=== PATIENT | male | born 1945 | race Caucasian/White ===

== ENCOUNTER 2017-07-29 14:16 | Emergency (ER) | payer OTHER ==
--- OUTSIDE RECORDS SUMMARY | 2017-07-29 14:19 | XMS REPORT ---
:1945 Author Organization [facility] Address [address] [place] [address] [address] [place] [address] Care Team Providers Name Role Phone ABIEL DELGADO Unavailable Unavailable Problems This patient has no known problems. Allergies, Adverse Reactions, Alerts This patient has no known allergies or adverse reactions. Medications This patient has no known medications. Results Test Description Test Time Test Comments Text Results Atomic Results Result Comments POCT-GLUCOSE METER 2017-02-08 13:28:00 Test Item Value Reference Range Comments POC-GLUCOSE METER (BEAKER) (test 270 mg/dL 70-110 TESTED AT [address] vlis=3368) [facility] [address] POCT-GLUCOSE [id number] 08:58:00 Test Item Value Reference Range Comments POC-GLUCOSE METER (BEAKER) 147 mg/dL 70-110 TESTED AT [address] (test fgqk=5353) [facility] [address] CBC W/PLT COUNT & AUTO [id number] 08:53:00 Test Item Value Reference Range Comments WHITE BLOOD CELL COUNT (BEAKER) (test tbsf=097) 5.6 K/ L 3.5-10.5 RED BLOOD CELL COUNT (BEAKER) (test pdhc=430) 4.28 M/ L 4.63-6.08 HEMOGLOBIN (BEAKER) (test pewi=969) 11.7 GM/DL 13.7-17.5 HEMATOCRIT (BEAKER) (test jxwm=270) 37.4 % 40.1-51.0 MEAN CORPUSCULAR VOLUME (BEAKER) (test grma=393) 87.4 fL 79.0-92.2 MEAN CORPUSCULAR HEMOGLOBIN (BEAKER) (test 27.3 pg 25.7-32.2 yzzj=677) MEAN CORPUSCULAR HEMOGLOBIN CONC (BEAKER) (test 31.3 GM/DL 32.3-36.5 iubb=633) RED CELL DISTRIBUTION WIDTH (BEAKER) (test 16.2 % 11.6-14.4 iayn=097) PLATELET COUNT (BEAKER) (test mmjp=768) 100 K/CU MM 150-450 MEAN PLATELET VOLUME (BEAKER) (test ctac=668) 10.7 fL 9.4-12.4 NUCLEATED RED BLOOD CELLS (BEAKER) (test 0 /100 WBC 0-0 bjdx=194) NEUTROPHILS RELATIVE PERCENT (BEAKER) (test 50 % wuda=142) LYMPHOCYTES RELATIVE PERCENT (BEAKER) (test 30 % etal=149) MONOCYTES RELATIVE PERCENT (BEAKER) (test 18 % hibf=244) EOSINOPHILS RELATIVE PERCENT (BEAKER) (test 2 % nsje=736) BASOPHILS RELATIVE PERCENT (BEAKER) (test 1 % seoz=771) NEUTROPHILS ABSOLUTE COUNT (BEAKER) (test 2.77 K/ L 1.78-5.38 ofcy=284) LYMPHOCYTES ABSOLUTE COUNT (BEAKER) (test 1.66 K/ L 1.32-3.57 qbvn=680) MONOCYTES ABSOLUTE COUNT (BEAKER) (test 1.02 K/ L 0.30-0.82 yxce=023) EOSINOPHILS ABSOLUTE COUNT (BEAKER) (test 0.09 K/ L 0.04-0.54 qnzu=076) BASOPHILS ABSOLUTE COUNT (BEAKER) (test 0.03 K/ L 0.01-0.08 budd=597) IMMATURE GRANULOCYTES-RELATIVE PERCENT (BEAKER) 0 % 0-1 (test yatd=6503) [id number] 08:05:00 Test Item Value Reference Range Comments MAGNESIUM (BEAKER) (test pbor=951) 1.5 mg/dL 1.6-2.6 BASIC METABOLIC [id number] 08:05:00 Test Item Value Reference Range Comments SODIUM (BEAKER) (test 137 meq/L 136-145 hxor=416) POTASSIUM (BEAKER) (test 3.3 meq/L 3.5-5.1 ixrt=826) CHLORIDE (BEAKER) (test 98 meq/L 98-107 fvme=258) CO2 (BEAKER) (test 27 meq/L 22-29 csci=661) BLOOD UREA NITROGEN 30 mg/dL 7-21 (BEAKER) (test nkuw=036) CREATININE (BEAKER) (test 1.59 mg/dL 0.57-1.25 bdtn=479) GLUCOSE RANDOM (BEAKER) 116 mg/dL 70-105 (test tjgp=853) CALCIUM (BEAKER) (test 9.0 mg/dL 8.4-10.2 nqqf=247) EGFR (BEAKER) (test 43 mL/min/1.73 sq m ESTIMATED GFR IS NOT oxzt=9810) ACCURATE CREATININE CLEARANCE IN PREDICTING GLOMERULAR FILTRATION RATE. ESTIMATED GFR IS NOT APPLICABLE FOR DIALYSIS PATIENTS. POCT-GLUCOSE [id number] 21:57:00 Test Item Value Reference Range Comments POC-GLUCOSE METER (BEAKER) 219 mg/dL 70-110 TESTED AT [address] (test kdcg=0495) [facility] [address] POCT-GLUCOSE [id number] 17:24:00 Test Item Value Reference Range Comments POC-GLUCOSE METER (BEAKER) 247 mg/dL 70-110 TESTED AT [address] (test tnac=4794) [facility] [address] CBC W/PLT COUNT & AUTO [id number] 13:56:00 Test Item Value Reference Range Comments WHITE BLOOD CELL COUNT (BEAKER) (test jwjb=173) 6.4 K/ L 3.5-10.5 RED BLOOD CELL COUNT (BEAKER) (test kpfz=363) 4.04 M/ L 4.63-6.08 HEMOGLOBIN (BEAKER) (test qbxg=705) 10.9 GM/DL 13.7-17.5 HEMATOCRIT (BEAKER) (test ucbm=899) 35.4 % 40.1-51.0 MEAN CORPUSCULAR VOLUME (BEAKER) (test rlag=841) 87.6 fL 79.0-92.2 MEAN CORPUSCULAR HEMOGLOBIN (BEAKER) (test 27.0 pg 25.7-32.2 bnlx=772) MEAN CORPUSCULAR HEMOGLOBIN CONC (BEAKER) (test 30.8 GM/DL 32.3-36.5 gzzu=433) RED CELL DISTRIBUTION WIDTH (BEAKER) (test 16.1 % 11.6-14.4 mugp=846) PLATELET COUNT (BEAKER) (test ofyz=993) 98 K/CU MM 150-450 MEAN PLATELET VOLUME (BEAKER) (test cldi=306) 10.5 fL 9.4-12.4 NUCLEATED RED BLOOD CELLS (BEAKER) (test 0 /100 WBC 0-0 uhjj=022) IMMATURE GRANULOCYTES-RELATIVE PERCENT (BEAKER) 0 % 0-1 (test mxrc=8603) (MANUAL DIFFERENTIAL)2017-02-07 13:56:00 Test Item Value Reference Range Comments NEUTROPHILS - REL (DIFF) (BEAKER) (test blfh=3422) 52 % LYMPHOCYTES - REL (DIFF) (BEAKER) (test tpgl=7012) 26 % MONOCYTES - REL (DIFF) (BEAKER) (test iolk=8523) 14 % EOSINOPHILS - REL (DIFF) (BEAKER) (test lzie=6961) 6 % BASOPHILS - REL (DIFF) (BEAKER) (test befb=9882) 0 % BANDS - REL (DIFF) (BEAKER) (test dzrk=6947) 1 % 0-10 ATYPICAL LYMPHOCYTE - REL (DIFF) (BEAKER) (test 1 % 0-0 pqvw=733) NEUTROPHILS - ABS (DIFF) (BEAKER) (test echq=1852) 3.33 K/ L 1.80-8.00 LYMPHOCYTES - ABS (DIFF) (BEAKER) (test rmpi=9464) 1.66 K/ L 1.48-4.50 MONOCYTES - ABS (DIFF) (BEAKER) (test oxmq=1645) 0.90 K/ L 0.00-1.30 EOSINOPHILS - ABS (DIFF) (BEAKER) (test jstj=1951) 0.38 K/ L 0.00-0.50 BASOPHILS - ABS (DIFF) (BEAKER) (test ybjx=5642) 0.00 K/ L 0.00-0.20 BANDS-ABS (DIFF) (BEAKER) (test tkrr=4035) 0.1 K/ L 0.0-0.8 ATYPICAL LYMPHOCYTES - ABS (DIFF) (BEAKER) (test 0.06 K/ L 0.00-0.00 uplm=457) TOTAL COUNTED (BEAKER) (test whub=7341) 100 BANDS + SEGMENTED NEUTROPHILS (BEAKER) (test 3.39 uefa=1322) WBC MORPHOLOGY (BEAKER) (test eleq=419) Normal PLT MORPHOLOGY (BEAKER) (test qrqx=139) Normal RBC MORPHOLOGY (BEAKER) (test sszg=462) Normal POCT-GLUCOSE [id number] 13:22:00 Test Item Value Reference Range Comments POC-GLUCOSE METER (BEAKER) 226 mg/dL 70-110 TESTED AT [address] (test poqe=0800) [place] [id number] POCT-GLUCOSE [id number] 07:59:00 Test Item Value Reference Range Comments POC-GLUCOSE METER (BEAKER) 216 mg/dL 70-110 TESTED AT [address] (test fwmo=8264) [place] [address] [id number] 05:18:00 Test Item Value Reference Range Comments MAGNESIUM (BEAKER) (test gfra=783) 1.7 mg/dL 1.6-2.6 BASIC METABOLIC [id number] 05:18:00 Test Item Value Reference Range Comments SODIUM (BEAKER) (test 136 meq/L 136-145 fecy=120) POTASSIUM (BEAKER) (test 3.4 meq/L 3.5-5.1 vrqe=856) CHLORIDE (BEAKER) (test 101 meq/L 98-107 oxfu=820) CO2 (BEAKER) (test 26 meq/L 22-29 kzkr=937) BLOOD UREA NITROGEN 25 mg/dL 7-21 (BEAKER) (test bfiq=954) CREATININE (BEAKER) (test 1.50 mg/dL 0.57-1.25 fwqb=042) GLUCOSE RANDOM (BEAKER) 216 mg/dL 70-105 (test pwxt=782) CALCIUM (BEAKER) (test 8.5 mg/dL 8.4-10.2 qoex=687) EGFR (BEAKER) (test 46 mL/min/1.73 sq m ESTIMATED GFR IS NOT qtwg=6293) ACCURATE CREATININE CLEARANCE IN PREDICTING GLOMERULAR FILTRATION RATE. ESTIMATED GFR IS NOT APPLICABLE FOR DIALYSIS PATIENTS. POCT-GLUCOSE [id number] 20:58:00 Test Item Value Reference Range Comments POC-GLUCOSE METER (BEAKER) 260 mg/dL 70-110 TESTED AT [address] (test jrha=6202) [place] [address] POCT-GLUCOSE [id number] 17:32:00 Test Item Value Reference Range Comments POC-GLUCOSE METER (BEAKER) 237 mg/dL 70-110 TESTED AT [address] (test dytl=7984) [place] [address] POCT-GLUCOSE [id number] 16:21:00 Test Item Value Reference Range Comments POC-GLUCOSE METER (BEAKER) 223 mg/dL 70-[address] [facility] [address] [facility] ibmq[facility]2694) [facility] [address] CBC W/PLT COUNT & AUTO [id number] 14:22:00 Test Item Value Reference Range Comments WHITE BLOOD CELL COUNT (BEAKER) (test kmpv=680) 6.5 K/ L 3.5-10.5 RED BLOOD CELL COUNT (BEAKER) (test wcmn=251) 4.17 M/ L 4.63-6.08 HEMOGLOBIN (BEAKER) (test crqx=393) 11.3 GM/DL 13.7-17.5 HEMATOCRIT (BEAKER) (test bbid=857) 36.8 % 40.1-51.0 MEAN CORPUSCULAR VOLUME (BEAKER) (test okwf=732) 88.2 fL 79.0-92.2 MEAN CORPUSCULAR HEMOGLOBIN (BEAKER) (test 27.1 pg 25.7-32.2 dnxh=976) MEAN CORPUSCULAR HEMOGLOBIN CONC (BEAKER) (test 30.7 GM/DL 32.3-36.5 wlpz=492) RED CELL DISTRIBUTION WIDTH (BEAKER) (test 16.1 % 11.6-14.4 cabd=182) PLATELET COUNT (BEAKER) (test qghf=877) 116 K/CU MM 150-450 MEAN PLATELET VOLUME (BEAKER) (test oewg=060) 10.7 fL 9.4-12.4 NUCLEATED RED BLOOD CELLS (BEAKER) (test 0 /100 WBC 0-0 rmjq=279) NEUTROPHILS RELATIVE PERCENT (BEAKER) (test 48 % uqhf=801) LYMPHOCYTES RELATIVE PERCENT (BEAKER) (test 30 % gavm=339) MONOCYTES RELATIVE PERCENT (BEAKER) (test 20 % rfcq=164) EOSINOPHILS RELATIVE PERCENT (BEAKER) (test 1 % umbf=688) BASOPHILS RELATIVE PERCENT (BEAKER) (test 0 % lniv=112) NEUTROPHILS ABSOLUTE COUNT (BEAKER) (test 3.09 K/ L 1.78-5.38 vorp=275) LYMPHOCYTES ABSOLUTE COUNT (BEAKER) (test 1.95 K/ L 1.32-3.57 bzlu=304) MONOCYTES ABSOLUTE COUNT (BEAKER) (test 1.32 K/ L 0.30-0.82 ncqd=098) EOSINOPHILS ABSOLUTE COUNT (BEAKER) (test 0.07 K/ L 0.04-0.54 krnp=797) BASOPHILS ABSOLUTE COUNT (BEAKER) (test 0.02 K/ L 0.01-0.08 lxxz=836) IMMATURE GRANULOCYTES-RELATIVE PERCENT (BEAKER) 0 % 0-1 (test fmob=2990) (MANUAL DIFFERENTIAL)2017-02-06 14:22:00 Test Item Value Reference Range Comments TOTAL COUNTED (BEAKER) (test oihc=1870) WBC MORPHOLOGY (BEAKER) (test eulc=942) Normal PLT MORPHOLOGY (BEAKER) (test daoz=688) Normal RBC MORPHOLOGY (BEAKER) (test ktlh=670) Normal POCT-GLUCOSE [id number] 11:52:00 Test Item Value Reference Range Comments POC-GLUCOSE METER (BEAKER) 143 mg/dL 70-110 TESTED AT [address] (test kgli=1725) [place] [id number] POCT-GLUCOSE [id number] 08:04:00 Test Item Value Reference Range Comments POC-GLUCOSE METER (BEAKER) 86 mg/dL 70-110 TESTED AT [address] (test obsp=9490) [place] [address] [id number] 06:07:00 Test Item Value Reference Range Comments MAGNESIUM (BEAKER) (test 1.6 mg/dL 1.6-2.6 Specimen slightly hemolyzed mpaw=691) BASIC METABOLIC [id number] 06:07:00 Test Item Value Reference Range Comments SODIUM (BEAKER) (test 135 meq/L 136-145 xakb=996) POTASSIUM (BEAKER) (test 3.7 meq/L 3.5-5.1 Specimen slightly bxxx=357) hemolyzed CHLORIDE (BEAKER) (test 104 meq/L 98-107 rluv=663) CO2 (BEAKER) (test 22 meq/L 22-29 sacy=918) BLOOD UREA NITROGEN 27 mg/dL 7-21 (BEAKER) (test nnsx=945) CREATININE (BEAKER) (test 1.32 mg/dL 0.57-1.25 Specimen slightly ilgd=404) hemolyzed GLUCOSE RANDOM (BEAKER) 103 mg/dL 70-105 (test npmy=255) CALCIUM (BEAKER) (test 8.4 mg/dL 8.4-10.2 bbqi=410) EGFR (BEAKER) (test 53 mL/min/1.73 sq m ESTIMATED GFR IS NOT xtwa=7499) ACCURATE CREATININE CLEARANCE IN PREDICTING GLOMERULAR FILTRATION RATE. ESTIMATED GFR IS NOT APPLICABLE FOR DIALYSIS PATIENTS. POCT-GLUCOSE [id number] 20:42:00 Test Item Value Reference Range Comments POC-GLUCOSE METER (BEAKER) 338 mg/dL 70-[address] [facility] [address] [facility] (test ifkf=9884) [facility] [address] POCT-GLUCOSE [id number] 17:41:00 Test Item Value Reference Range Comments POC-GLUCOSE METER (BEAKER) 303 mg/dL 70-110 TESTED AT [address] (test xtds=9821) [facility] [address] RAD, CHEST, 1 VIEW, NON [id number] 14:44:00Reason for exam:->shortness of breath s/p RHCShould this be performed at the bedside?->YesFINAL REPORT CLINICAL HISTORY: shortness of breath s/p RHC TECHNIQUE : 1 viewof the chest. COMPARISON: 01/31/2017 IMPRESSION: Trace bilateral pleural effusions are again seen with left basilar atelectasis. The cardiomediastinal silhouette is magnified by technique with a pacemaker. Signed : Barbara Espinoza MDReport Verified Date/Time: 02/05/2017 14:44:20 Reading Location: [address] Consult Reading Room CBC W/PLT COUNT & AUTO [id number] 14:37:00 Test Item Value Reference Range Comments WHITE BLOOD CELL COUNT (BEAKER) (test ftfu=413) 7.1 K/ L 3.5-10.5 RED BLOOD CELL COUNT (BEAKER) (test ihsl=382) 4.34 M/ L 4.63-6.08 HEMOGLOBIN (BEAKER) (test hogy=062) 11.8 GM/DL 13.7-17.5 HEMATOCRIT (BEAKER) (test fqyf=083) 38.1 % 40.1-51.0 MEAN CORPUSCULAR VOLUME (BEAKER) (test sepr=192) 87.8 fL 79.0-92.2 MEAN CORPUSCULAR HEMOGLOBIN (BEAKER) (test 27.2 pg 25.7-32.2 fdam=808) MEAN CORPUSCULAR HEMOGLOBIN CONC (BEAKER) (test 31.0 GM/DL 32.3-36.5 okqb=694) RED CELL DISTRIBUTION WIDTH (BEAKER) (test 16.1 % 11.6-14.4 raps=778) PLATELET COUNT (BEAKER) (test hhbb=315) 112 K/CU MM 150-450 MEAN PLATELET VOLUME (BEAKER) (test loio=421) 10.6 fL 9.4-12.4 NUCLEATED RED BLOOD CELLS (BEAKER) (test 0 /100 WBC 0-0 dtyw=421) NEUTROPHILS RELATIVE PERCENT (BEAKER) (test 55 % xmek=611) LYMPHOCYTES RELATIVE PERCENT (BEAKER) (test 20 % ocbm=272) MONOCYTES RELATIVE PERCENT (BEAKER) (test 23 % pxre=851) EOSINOPHILS RELATIVE PERCENT (BEAKER) (test 1 % wstr=884) BASOPHILS RELATIVE PERCENT (BEAKER) (test 0 % zjdg=578) NEUTROPHILS ABSOLUTE COUNT (BEAKER) (test 3.91 K/ L 1.78-5.38 toai=474) LYMPHOCYTES ABSOLUTE COUNT (BEAKER) (test 1.43 K/ L 1.32-3.57 idzy=473) MONOCYTES ABSOLUTE COUNT (BEAKER) (test 1.67 K/ L 0.30-0.82 bbku=730) EOSINOPHILS ABSOLUTE COUNT (BEAKER) (test 0.08 K/ L 0.04-0.54 oahu=334) BASOPHILS ABSOLUTE COUNT (BEAKER) (test 0.03 K/ L 0.01-0.08 reoz=743) IMMATURE GRANULOCYTES-RELATIVE PERCENT (BEAKER) 0 % 0-1 (test okov=0678) (MANUAL DIFFERENTIAL)2017-02-05 14:37:00 Test Item Value Reference Range Comments TOTAL COUNTED (BEAKER) (test umcz=5948) WBC MORPHOLOGY (BEAKER) (test uvxr=882) Normal PLT MORPHOLOGY (BEAKER) (test ucay=014) Normal RBC MORPHOLOGY (BEAKER) (test qhom=384) Normal POCT-GLUCOSE [id number] 12:08:00 Test Item Value Reference Range Comments POC-GLUCOSE METER (BEAKER) 197 mg/dL 70-110 TESTED AT [address] (test qxnd=4389) [facility] [address] POCT-GLUCOSE [id number] 07:55:00 Test Item Value Reference Range Comments POC-GLUCOSE METER (BEAKER) 149 mg/dL 70-110 TESTED AT [address] (test nzgh=1847) [place] [address] [id number] 05:21:00 Test Item Value Reference Range Comments MAGNESIUM (BEAKER) (test eifx=484) 1.4 mg/dL 1.6-2.6 BASIC METABOLIC [id number] 05:21:00 Test Item Value Reference Range Comments SODIUM (BEAKER) (test 139 meq/L 136-145 kxel=053) POTASSIUM (BEAKER) (test 3.7 meq/L 3.5-5.1 enff=046) CHLORIDE (BEAKER) (test 107 meq/L 98-107 ldwr=508) CO2 (BEAKER) (test 23 meq/L 22-29 bfkb=919) BLOOD UREA NITROGEN 24 mg/dL 7-21 (BEAKER) (test pncp=183) CREATININE (BEAKER) (test 1.31 mg/dL 0.57-1.25 kwde=730) GLUCOSE RANDOM (BEAKER) 155 mg/dL 70-105 (test eulk=549) CALCIUM (BEAKER) (test 8.5 mg/dL 8.4-10.2 ssgt=139) EGFR (BEAKER) (test 54 mL/min/1.73 sq m ESTIMATED GFR IS NOT zkya=0281) ACCURATE CREATININE CLEARANCE IN PREDICTING GLOMERULAR FILTRATION RATE. ESTIMATED GFR IS NOT APPLICABLE FOR DIALYSIS PATIENTS. POCT-GLUCOSE [id number] 21:03:00 Test Item Value Reference Range Comments POC-GLUCOSE METER (BEAKER) 296 mg/dL 70-110 TESTED AT [address] (test pakz=1231) [facility] [address] POCT-GLUCOSE [id number] 17:18:00 Test Item Value Reference Range Comments POC-GLUCOSE METER (BEAKER) 275 mg/dL 70-110 TESTED AT [address] (test rxbp=0577) [facility] [address] CBC W/PLT COUNT & AUTO [id number] 15:04:00 Test Item Value Reference Range Comments WHITE BLOOD CELL COUNT (BEAKER) (test ckqe=060) 7.2 K/ L 3.5-10.5 RED BLOOD CELL COUNT (BEAKER) (test rrlq=979) 4.24 M/ L 4.63-6.08 HEMOGLOBIN (BEAKER) (test vlee=449) 11.5 GM/DL 13.7-17.5 HEMATOCRIT (BEAKER) (test fslh=386) 37.6 % 40.1-51.0 MEAN CORPUSCULAR VOLUME (BEAKER) (test vhmw=318) 88.7 fL 79.0-92.2 MEAN CORPUSCULAR HEMOGLOBIN (BEAKER) (test 27.1 pg 25.7-32.2 pkip=593) MEAN CORPUSCULAR HEMOGLOBIN CONC (BEAKER) (test 30.6 GM/DL 32.3-36.5 oyxu=266) RED CELL DISTRIBUTION WIDTH (BEAKER) (test 16.3 % 11.6-14.4 imub=161) PLATELET COUNT (BEAKER) (test pmmc=557) 116 K/CU MM 150-450 MEAN PLATELET VOLUME (BEAKER) (test gdyh=541) 10.6 fL 9.4-12.4 NUCLEATED RED BLOOD CELLS (BEAKER) (test 0 /100 WBC 0-0 ffoq=212) NEUTROPHILS RELATIVE PERCENT (BEAKER) (test 51 % mizm=882) LYMPHOCYTES RELATIVE PERCENT (BEAKER) (test 22 % qxaa=082) MONOCYTES RELATIVE PERCENT (BEAKER) (test 24 % ltli=978) EOSINOPHILS RELATIVE PERCENT (BEAKER) (test 1 % zvin=243) BASOPHILS RELATIVE PERCENT (BEAKER) (test 0 % mfwd=417) NEUTROPHILS ABSOLUTE COUNT (BEAKER) (test 3.71 K/ L 1.78-5.38 jnlb=566) LYMPHOCYTES ABSOLUTE COUNT (BEAKER) (test 1.62 K/ L 1.32-3.57 ytth=276) MONOCYTES ABSOLUTE COUNT (BEAKER) (test 1.74 K/ L 0.30-0.82 natu=836) EOSINOPHILS ABSOLUTE COUNT (BEAKER) (test 0.08 K/ L 0.04-0.54 lyxe=254) BASOPHILS ABSOLUTE COUNT (BEAKER) (test 0.03 K/ L 0.01-0.08 tssj=402) IMMATURE GRANULOCYTES-RELATIVE PERCENT (BEAKER) 1 % 0-1 (test ncux=9670) (MANUAL DIFFERENTIAL)2017-02-04 15:04:00 Test Item Value Reference Range Comments TOTAL COUNTED (BEAKER) (test okdt=3955) POCT-GLUCOSE [id number] 12:17:00 Test Item Value Reference Range Comments POC-GLUCOSE METER (BEAKER) 208 mg/dL 70-110 TESTED AT [address] (test dqdi=1901) [facility] [address] POCT-GLUCOSE [id number] 08:57:00 Test Item Value Reference Range Comments POC-GLUCOSE METER (BEAKER) 230 mg/dL 70-110 TESTED AT [address] (test sved=9038) [place] [id number] 05:56:00 Test Item Value Reference Range Comments MAGNESIUM (BEAKER) (test zfgi=335) 1.6 mg/dL 1.6-2.6 BASIC METABOLIC [id number] 05:56:00 Test Item Value Reference Range Comments SODIUM (BEAKER) (test 137 meq/L 136-145 itpq=040) POTASSIUM (BEAKER) (test 4.2 meq/L 3.5-5.1 xjfy=480) CHLORIDE (BEAKER) (test 108 meq/L 98-107 gktl=720) CO2 (BEAKER) (test 19 meq/L 22-29 ixju=024) BLOOD UREA NITROGEN 28 mg/dL 7-21 (BEAKER) (test bejh=977) CREATININE (BEAKER) (test 1.35 mg/dL 0.57-1.25 rxuo=427) GLUCOSE RANDOM (BEAKER) 271 mg/dL 70-105 (test jqju=690) CALCIUM (BEAKER) (test 8.4 mg/dL 8.4-10.2 ahep=074) EGFR (BEAKER) (test 52 mL/min/1.73 sq m ESTIMATED GFR IS NOT dfqw=2534) ACCURATE CREATININE CLEARANCE IN PREDICTING GLOMERULAR FILTRATION RATE. ESTIMATED GFR IS NOT APPLICABLE FOR DIALYSIS PATIENTS. POCT-GLUCOSE [id number] 21:20:00 Test Item Value Reference Range Comments POC-GLUCOSE METER (BEAKER) 329 mg/dL 70-110 Notified JUDSON WATTS/TESTED AT [facility] (test gvqz=3019) [facility] [address] [facility] [address] POCT-GLUCOSE [id number] 18:14:00 Test Item Value Reference Range Comments POC-GLUCOSE METER (BEAKER) 299 mg/dL 70-[address] [facility] [address] [place] (test drzi=9037) [facility] [address] CBC W/PLT COUNT & AUTO [id number] 15:17:00 Test Item Value Reference Range Comments WHITE BLOOD CELL COUNT (BEAKER) (test dicq=721) 8.0 K/ L 3.5-10.5 RED BLOOD CELL COUNT (BEAKER) (test upby=756) 4.25 M/ L 4.63-6.08 HEMOGLOBIN (BEAKER) (test icrp=698) 11.7 GM/DL 13.7-17.5 HEMATOCRIT (BEAKER) (test fenc=419) 37.9 % 40.1-51.0 MEAN CORPUSCULAR VOLUME (BEAKER) (test blue=540) 89.2 fL 79.0-92.2 MEAN CORPUSCULAR HEMOGLOBIN (BEAKER) (test 27.5 pg 25.7-32.2 vqvi=116) MEAN CORPUSCULAR HEMOGLOBIN CONC (BEAKER) (test 30.9 GM/DL 32.3-36.5 tisp=556) RED CELL DISTRIBUTION WIDTH (BEAKER) (test 16.1 % 11.6-14.4 kweo=038) PLATELET COUNT (BEAKER) (test aklw=120) 139 K/CU MM 150-450 MEAN PLATELET VOLUME (BEAKER) (test qjzn=700) 10.4 fL 9.4-12.4 NUCLEATED RED BLOOD CELLS (BEAKER) (test 0 /100 WBC 0-0 yjuk=123) NEUTROPHILS RELATIVE PERCENT (BEAKER) (test 52 % yypv=673) LYMPHOCYTES RELATIVE PERCENT (BEAKER) (test 24 % lplj=300) MONOCYTES RELATIVE PERCENT (BEAKER) (test 22 % pgxn=638) EOSINOPHILS RELATIVE PERCENT (BEAKER) (test 2 % vupl=140) BASOPHILS RELATIVE PERCENT (BEAKER) (test 0 % tplb=537) NEUTROPHILS ABSOLUTE COUNT (BEAKER) (test 4.11 K/ L 1.78-5.38 falp=315) LYMPHOCYTES ABSOLUTE COUNT (BEAKER) (test 1.91 K/ L 1.32-3.57 cuod=800) MONOCYTES ABSOLUTE COUNT (BEAKER) (test 1.75 K/ L 0.30-0.82 hwsy=314) EOSINOPHILS ABSOLUTE COUNT (BEAKER) (test 0.14 K/ L 0.04-0.54 speu=580) BASOPHILS ABSOLUTE COUNT (BEAKER) (test 0.03 K/ L 0.01-0.08 gvij=527) IMMATURE GRANULOCYTES-RELATIVE PERCENT (BEAKER) 0 % 0-1 (test jwkh=7603) (MANUAL DIFFERENTIAL)2017-02-03 15:17:00 Test Item Value Reference Range Comments TOTAL COUNTED (BEAKER) (test bgpz=6910) WBC MORPHOLOGY (BEAKER) (test gbhn=490) Normal PLT MORPHOLOGY (BEAKER) (test sful=973) Normal RBC MORPHOLOGY (BEAKER) (test wdra=822) Normal POCT-GLUCOSE [id number] 12:54:00 Test Item Value Reference Range Comments POC-GLUCOSE METER (BEAKER) 173 mg/dL 70-[address] [facility] [address] [facility] (test lpdj=9722) [facility] [address] URINALYSIS W/ REFLEX URINE [id number] 12:06:00 Test Item Value Reference Range Comments COLOR (BEAKER) (test ncwp=031) Yellow CLARITY (BEAKER) (test mesb=342) Clear SPECIFIC GRAVITY UA (BEAKER) (test cdwe=027) 1.016 1.001-1.035 PH UA (BEAKER) (test crku=694) 5.0 5.0-8.0 PROTEIN UA (BEAKER) (test oodf=706) 20 mg/dL Negative GLUCOSE UA (BEAKER) (test clkn=725) 50 mg/dL Negative KETONES UA (BEAKER) (test cyen=330) Negative Negative BILIRUBIN UA (BEAKER) (test fqgf=199) Negative Negative BLOOD UA (BEAKER) (test oqyb=790) Trace Negative NITRITE UA (BEAKER) (test mnyw=558) Negative Negative LEUKOCYTE ESTERASE UA (BEAKER) (test xdxe=242) Negative Negative UROBILINOGEN UA (BEAKER) (test otzo=427) 0.2 mg/dL 0.2-1.0 RBC UA (BEAKER) (test xipf=443) 3 /HPF WBC UA (BEAKER) (test zttf=786) 4 /HPF BACTERIA (BEAKER) (test qurt=770) Occasional MUCUS (BEAKER) (test dkay=0430) Occasional SQUAMOUS EPITHELIAL (BEAKER) (test tfqs=192) 1 /HPF AMORPHOUS CRYSTALS (BEAKER) (test owma=2887) Occasional SOURCE(BEAKER) (test psjt=2972) CREATININE, RANDOM [id number] 10:52:00 Test Item Value Reference Range Comments CREATININE URINE (BEAKER) (test xpxh=103) 127.3 mg/dL Reference Range: No NormalsPROTEIN, RANDOM [id number] 10:52:00 Test Item Value Reference Range Comments PROTEIN, URINE (BEAKER) (test tzux=9383) 19 mg/dL 0-14 POCT-GLUCOSE [id number] 07:55:00 Test Item Value Reference Range Comments POC-GLUCOSE METER (BEAKER) 88 mg/dL 70-[address] [facility] [address] [facility] (test wkbd=4741) [facility] [address] [id number] 05:22:00 Test Item Value Reference Range Comments MAGNESIUM (BEAKER) (test ngsl=637) 1.8 mg/dL 1.6-2.6 BASIC METABOLIC [id number] 05:22:00 Test Item Value Reference Range Comments SODIUM (BEAKER) (test 138 meq/L 136-145 lcyi=423) POTASSIUM (BEAKER) (test 4.0 meq/L 3.5-5.1 ghhm=415) CHLORIDE (BEAKER) (test 110 meq/L 98-107 mfoy=855) CO2 (BEAKER) (test 21 meq/L 22-29 zoez=110) BLOOD UREA NITROGEN 31 mg/dL 7-21 (BEAKER) (test zcwl=999) CREATININE (BEAKER) (test 1.27 mg/dL 0.57-1.25 gvnr=579) GLUCOSE RANDOM (BEAKER) 130 mg/dL 70-105 (test fcts=241) CALCIUM (BEAKER) (test 8.4 mg/dL 8.4-10.2 eszk=836) EGFR (BEAKER) (test 56 mL/min/1.73 sq m ESTIMATED GFR IS NOT kcjk=2959) ACCURATE CREATININE CLEARANCE IN PREDICTING GLOMERULAR FILTRATION RATE. ESTIMATED GFR IS NOT APPLICABLE FOR DIALYSIS PATIENTS. B-TYPE NATRIURETIC FACTOR (BNP)2017-02-03 05:17:00 Test Item Value Reference Range Comments B-TYPE NATRIURETIC PEPTIDE (BEAKER) (test 315 pg/mL 0-100 kxch=994) POCT-GLUCOSE [id number] 21:36:00 Test Item Value Reference Range Comments POC-GLUCOSE METER (BEAKER) 230 mg/dL 70-110 TESTED AT [address] (test mgrk=4337) [place] [address] POCT-GLUCOSE [id number] 17:50:00 Test Item Value Reference Range Comments POC-GLUCOSE METER (BEAKER) 185 mg/dL 70-110 TESTED AT [address] (test uifc=7961) [place] [address] POCT-GLUCOSE [id number] 12:49:00 Test Item Value Reference Range Comments POC-GLUCOSE METER (BEAKER) 168 mg/dL 70-110 TESTED AT [address] (test mwsr=3769) [place] [address] [address], CHEST, WITHOUT [id number] 11:27:00FINAL REPORT Chest CT without contrast Reason for study: Pneumonia Comparison: Chest x-ray, 01/31/2017 Technique: Non contrast chest CT Dose modulation, iterative reconstruction,and/or weight based adjustment of the mA/kV was utilized to reduce the radiation dose to as low as reasonably achievable. Discussion: A small intermediate density pericardial effusion is identified. The attenuation measures between 40 and 50 Hounsfield units. The heart size is normal. A pacemaker is present. The imaged thyroid is small. No thoracic lymphadenopathy is seen on this noncontrast study. The central airways are patent. A small right and trace left pleural effusion are identified. Patchypulmonary ground glass opacities are identified in the lung bases adjacent to the pleural effusions.Some compressive atelectasis is also seen. A few scattered calcified granulomas are seen. Tubular densities are identified in the peripheral left lung apex and right lung base. These may represent dilated peripheral pulmonary artery branches or more likely impacted bronchioles. There are some mild degenerative changes at the lower thoracic spine. Limited exam of the upper abdomen shows no acute noncontrast abnormality. IMPRESSION 1. Small intermediate density pericardial effusion. This could represent proteinaceous fluid or hemorrhage. This may be evaluated further with echocardiography. 2. Small right and trace left pleural effusion with basilar subsegmental and compressive atelectasis. No consolidation. 3. Peripheral tubular densities in the left lung apex and right lung base. These may represent dilated pulmonary arterial branches or possibly impacted peripheral airways. This could be followed. Signed: Car Kaba MDReport Verified Date/Time: 02/02/2017 11:27:58 Reading Location: [facility] B1 C013X Ortho Consult Reading Room Electronically signed by: CAR KABA M.D. on 11:27 AMPOCT-GLUCOSE [id number] 08:24:00 Test Item Value Reference Range Comments POC-GLUCOSE METER (BEAKER) 84 mg/dL 70-[address] [facility] [address] [facility] (test dyhr=7708) [facility] [address] [id number] 07:42:00 Test Item Value Reference Range Comments MAGNESIUM (BEAKER) (test jwgt=027) 1.8 mg/dL 1.6-2.6 BASIC METABOLIC [id number] 07:42:00 Test Item Value Reference Range Comments SODIUM (BEAKER) (test 137 meq/L 136-145 lifb=228) POTASSIUM (BEAKER) (test 3.8 meq/L 3.5-5.1 sxno=598) CHLORIDE (BEAKER) (test 108 meq/L 98-107 yuct=439) CO2 (BEAKER) (test 20 meq/L 22-29 nfov=349) BLOOD UREA NITROGEN 35 mg/dL 7-21 (BEAKER) (test eclg=856) CREATININE (BEAKER) (test 1.30 mg/dL 0.57-1.25 jbta=145) GLUCOSE RANDOM (BEAKER) 102 mg/dL 70-105 (test ezva=521) CALCIUM (BEAKER) (test 8.4 mg/dL 8.4-10.2 cvch=966) EGFR (BEAKER) (test 54 mL/min/1.73 sq m ESTIMATED GFR IS NOT hnir=5719) ACCURATE CREATININE CLEARANCE IN PREDICTING GLOMERULAR FILTRATION RATE. ESTIMATED GFR IS NOT APPLICABLE FOR DIALYSIS PATIENTS. CBC W/PLT COUNT & AUTO [id number] 07:40:00 Test Item Value Reference Range Comments WHITE BLOOD CELL COUNT (BEAKER) (test bvco=993) 9.3 K/ L 3.5-10.5 RED BLOOD CELL COUNT (BEAKER) (test inke=470) 4.32 M/ L 4.63-6.08 HEMOGLOBIN (BEAKER) (test ywdy=463) 11.9 GM/DL 13.7-17.5 HEMATOCRIT (BEAKER) (test aizw=639) 38.3 % 40.1-51.0 MEAN CORPUSCULAR VOLUME (BEAKER) (test rwvo=427) 88.7 fL 79.0-92.2 MEAN CORPUSCULAR HEMOGLOBIN (BEAKER) (test 27.5 pg 25.7-32.2 cjja=062) MEAN CORPUSCULAR HEMOGLOBIN CONC (BEAKER) (test 31.1 GM/DL 32.3-36.5 lmko=640) RED CELL DISTRIBUTION WIDTH (BEAKER) (test 16.4 % 11.6-14.4 fjru=326) PLATELET COUNT (BEAKER) (test pkqf=860) 150 K/CU MM 150-450 MEAN PLATELET VOLUME (BEAKER) (test cwdm=664) 10.3 fL 9.4-12.4 NUCLEATED RED BLOOD CELLS (BEAKER) (test 0 /100 WBC 0-0 prqb=611) NEUTROPHILS RELATIVE PERCENT (BEAKER) (test 58 % memb=249) LYMPHOCYTES RELATIVE PERCENT (BEAKER) (test 20 % bdzl=727) MONOCYTES RELATIVE PERCENT (BEAKER) (test 20 % jexh=931) EOSINOPHILS RELATIVE PERCENT (BEAKER) (test 2 % ipih=669) BASOPHILS RELATIVE PERCENT (BEAKER) (test 0 % inqx=484) NEUTROPHILS ABSOLUTE COUNT (BEAKER) (test 5.35 K/ L 1.78-5.38 znwz=444) LYMPHOCYTES ABSOLUTE COUNT (BEAKER) (test 1.84 K/ L 1.32-3.57 cror=403) MONOCYTES ABSOLUTE COUNT (BEAKER) (test 1.83 K/ L 0.30-0.82 zyos=462) EOSINOPHILS ABSOLUTE COUNT (BEAKER) (test 0.16 K/ L 0.04-0.54 ddll=194) BASOPHILS ABSOLUTE COUNT (BEAKER) (test 0.03 K/ L 0.01-0.08 zywa=733) IMMATURE GRANULOCYTES-RELATIVE PERCENT (BEAKER) 0 % 0-1 (test vrjb=9141) POCT-GLUCOSE [id number] 21:29:00 Test Item Value Reference Range Comments POC-GLUCOSE METER (BEAKER) 273 mg/dL 70-110 TESTED AT [address] (test ynss=8719) [facility] [address] POCT-GLUCOSE [id number] 19:21:00 Test Item Value Reference Range Comments POC-GLUCOSE METER (BEAKER) 286 mg/dL 70-110 TESTED AT [address] (test fvak=0985) [facility] [address] POCT-GLUCOSE [id number] 17:33:00 Test Item Value Reference Range Comments POC-GLUCOSE METER (BEAKER) 263 mg/dL 70-110 TESTED AT [address] (test gzfh=7082) [facility] [address] POCT-GLUCOSE [id number] 12:25:00 Test Item Value Reference Range Comments POC-GLUCOSE METER (BEAKER) 196 mg/dL 70-110 TESTED AT [address] (test tmwk=6087) [facility] [address] CBC W/PLT COUNT & AUTO [id number] 10:54:00 Test Item Value Reference Range Comments WHITE BLOOD CELL COUNT (BEAKER) (test jgku=852) 9.0 K/ L 3.5-10.5 RED BLOOD CELL COUNT (BEAKER) (test mvwx=379) 4.43 M/ L 4.63-6.08 HEMOGLOBIN (BEAKER) (test uhsj=996) 12.2 GM/DL 13.7-17.5 HEMATOCRIT (BEAKER) (test tbwu=902) 39.3 % 40.1-51.0 MEAN CORPUSCULAR VOLUME (BEAKER) (test drtz=943) 88.7 fL 79.0-92.2 MEAN CORPUSCULAR HEMOGLOBIN (BEAKER) (test 27.5 pg 25.7-32.2 infu=005) MEAN CORPUSCULAR HEMOGLOBIN CONC (BEAKER) (test 31.0 GM/DL 32.3-36.5 gfcm=023) RED CELL DISTRIBUTION WIDTH (BEAKER) (test 16.4 % 11.6-14.4 tgsd=509) PLATELET COUNT (BEAKER) (test tnav=313) 157 K/CU MM 150-450 MEAN PLATELET VOLUME (BEAKER) (test tefb=041) 11.1 fL 9.4-12.4 NUCLEATED RED BLOOD CELLS (BEAKER) (test 0 /100 WBC 0-0 xfti=288) NEUTROPHILS RELATIVE PERCENT (BEAKER) (test 55 % mtqe=538) LYMPHOCYTES RELATIVE PERCENT (BEAKER) (test 24 % pufr=545) MONOCYTES RELATIVE PERCENT (BEAKER) (test 19 % fsag=621) EOSINOPHILS RELATIVE PERCENT (BEAKER) (test 2 % xpzo=537) BASOPHILS RELATIVE PERCENT (BEAKER) (test 0 % akxd=728) NEUTROPHILS ABSOLUTE COUNT (BEAKER) (test 4.95 K/ L 1.78-5.38 ydde=454) LYMPHOCYTES ABSOLUTE COUNT (BEAKER) (test 2.13 K/ L 1.32-3.57 ypaj=892) MONOCYTES ABSOLUTE COUNT (BEAKER) (test 1.71 K/ L 0.30-0.82 ohrn=989) EOSINOPHILS ABSOLUTE COUNT (BEAKER) (test 0.17 K/ L 0.04-0.54 bzwx=674) BASOPHILS ABSOLUTE COUNT (BEAKER) (test 0.02 K/ L 0.01-0.08 bozh=795) IMMATURE GRANULOCYTES-RELATIVE PERCENT (BEAKER) 0 % 0-1 (test ujxx=7250) (MANUAL DIFFERENTIAL)2017-02-01 10:54:00 Test Item Value Reference Range Comments TOTAL COUNTED (BEAKER) (test qfwz=3987) WBC MORPHOLOGY (BEAKER) (test wtaa=643) Normal PLT MORPHOLOGY (BEAKER) (test acob=481) Normal RBC MORPHOLOGY (BEAKER) (test wskl=648) Normal POCT-GLUCOSE [id number] 08:17:00 Test Item Value Reference Range Comments POC-GLUCOSE METER (BEAKER) 176 mg/dL 70-[address] [facility] [address] [facility] (test vkkx=3886) [facility] [address] [id number] 06:41:00 Test Item Value Reference Range Comments MAGNESIUM (BEAKER) (test zxeo=544) 1.7 mg/dL 1.6-2.6 BASIC METABOLIC [id number] 06:41:00 Test Item Value Reference Range Comments SODIUM (BEAKER) (test 136 meq/L 136-145 bwfg=108) POTASSIUM (BEAKER) (test 3.6 meq/L 3.5-5.1 yfmc=102) CHLORIDE (BEAKER) (test 107 meq/L 98-107 rcds=640) CO2 (BEAKER) (test 21 meq/L 22-29 tkrv=656) BLOOD UREA NITROGEN 37 mg/dL 7-21 (BEAKER) (test behv=508) CREATININE (BEAKER) (test 1.43 mg/dL 0.57-1.25 cnpq=172) GLUCOSE RANDOM (BEAKER) 180 mg/dL 70-105 (test aziu=129) CALCIUM (BEAKER) (test 8.4 mg/dL 8.4-10.2 zvzx=089) EGFR (BEAKER) (test 48 mL/min/1.73 sq m ESTIMATED GFR IS NOT argk=7809) ACCURATE CREATININE CLEARANCE IN PREDICTING GLOMERULAR FILTRATION RATE. ESTIMATED GFR IS NOT APPLICABLE FOR DIALYSIS PATIENTS. POCT-GLUCOSE [id number] 21:33:00 Test Item Value Reference Range Comments POC-GLUCOSE METER (BEAKER) 295 mg/dL 70-110 TESTED AT [address] (test gwbo=3561) [place] [id number] POCT-GLUCOSE [id number] 17:47:00 Test Item Value Reference Range Comments POC-GLUCOSE METER (BEAKER) 277 mg/dL 70-110 TESTED AT [address] (test rdxn=0125) [place] [address] RAD, CHEST, 2 [id number] 15:44:00Reason for exam:->dyspneaFINAL REPORT HISTORY : dyspnea. Comparison: 01/30/2017 Comment: Two views of the chest, PA and lateral, were obtained. The cardiac silhouette size is at the upper limits of normal. No pneumothorax is seen. There are very small bilateral pleural effusions with adjacent consolidations. 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 Multilevel degenerative disc changes of the thoracic spine are seen. There is a mild age-indeterminate compression deformity/ fracture of one of the lower thoracic vertebral bodies. Signed: Zuleima Graff MDReport Verified Date/Time: 01/31/2017 15:44:13 Reading Location: [facility] C013X Ortho Consult Reading Room POCT-GLUCOSE [id number] 11:51:00 Test Item Value Reference Range Comments POC-GLUCOSE METER (BEAKER) 238 mg/dL 70-110 TESTED AT [address] (test rntr=7083) [facility] [address] POCT-GLUCOSE [id number] 09:54:00 Test Item Value Reference Range Comments POC-GLUCOSE METER (BEAKER) 224 mg/dL 70-[address] [facility] [address] (test doar=0629) [facility] [address] CBC W/PLT COUNT & AUTO [id number] 05:34:00 Test Item Value Reference Range Comments WHITE BLOOD CELL COUNT (BEAKER) (test henp=121) 9.4 K/ L 3.5-10.5 RED BLOOD CELL COUNT (BEAKER) (test ucyi=590) 4.42 M/ L 4.63-6.08 HEMOGLOBIN (BEAKER) (test uhqp=427) 12.1 GM/DL 13.7-17.5 HEMATOCRIT (BEAKER) (test bwol=771) 39.0 % 40.1-51.0 MEAN CORPUSCULAR VOLUME (BEAKER) (test dxok=211) 88.2 fL 79.0-92.2 MEAN CORPUSCULAR HEMOGLOBIN (BEAKER) (test 27.4 pg 25.7-32.2 uyre=146) MEAN CORPUSCULAR HEMOGLOBIN CONC (BEAKER) (test 31.0 GM/DL 32.3-36.5 bkyz=779) RED CELL DISTRIBUTION WIDTH (BEAKER) (test 16.5 % 11.6-14.4 qhgu=676) PLATELET COUNT (BEAKER) (test bubq=271) 176 K/CU MM 150-450 MEAN PLATELET VOLUME (BEAKER) (test cplv=816) 10.8 fL 9.4-12.4 NUCLEATED RED BLOOD CELLS (BEAKER) (test 0 /100 WBC 0-0 suhz=557) NEUTROPHILS RELATIVE PERCENT (BEAKER) (test 52 % xuua=702) LYMPHOCYTES RELATIVE PERCENT (BEAKER) (test 26 % pmal=571) MONOCYTES RELATIVE PERCENT (BEAKER) (test 19 % ggos=048) EOSINOPHILS RELATIVE PERCENT (BEAKER) (test 2 % iqky=713) BASOPHILS RELATIVE PERCENT (BEAKER) (test 0 % vlsl=776) NEUTROPHILS ABSOLUTE COUNT (BEAKER) (test 4.91 K/ L 1.78-5.38 pgor=368) LYMPHOCYTES ABSOLUTE COUNT (BEAKER) (test 2.41 K/ L 1.32-3.57 yovi=111) MONOCYTES ABSOLUTE COUNT (BEAKER) (test 1.81 K/ L 0.30-0.82 rxcm=510) EOSINOPHILS ABSOLUTE COUNT (BEAKER) (test 0.19 K/ L 0.04-0.54 gzui=287) BASOPHILS ABSOLUTE COUNT (BEAKER) (test 0.02 K/ L 0.01-0.08 zuet=084) IMMATURE GRANULOCYTES-RELATIVE PERCENT (BEAKER) 0 % 0-1 (test slda=4708) [id number] 05:19:00 Test Item Value Reference Range Comments MAGNESIUM (BEAKER) (test zlgw=803) 1.8 mg/dL 1.6-2.6 BASIC METABOLIC [id number] 05:19:00 Test Item Value Reference Range Comments SODIUM (BEAKER) (test 135 meq/L 136-145 tmbi=260) POTASSIUM (BEAKER) (test 3.6 meq/L 3.5-5.1 oogj=062) CHLORIDE (BEAKER) (test 105 meq/L 98-107 zvcr=198) CO2 (BEAKER) (test 20 meq/L 22-29 abzl=294) BLOOD UREA NITROGEN 46 mg/dL 7-21 (BEAKER) (test esly=677) CREATININE (BEAKER) (test 1.61 mg/dL 0.57-1.25 tsck=515) GLUCOSE RANDOM (BEAKER) 193 mg/dL 70-105 (test pffa=987) CALCIUM (BEAKER) (test 8.5 mg/dL 8.4-10.2 etma=573) EGFR (BEAKER) (test 42 mL/min/1.73 sq m ESTIMATED GFR IS NOT ovwm=8551) ACCURATE CREATININE CLEARANCE IN PREDICTING GLOMERULAR FILTRATION RATE. ESTIMATED GFR IS NOT APPLICABLE FOR DIALYSIS PATIENTS. STREP PNEUMONIAE [id number] 23:56:00 Test Item Value Reference Range Comments STREP PNEUMONIAE ANTIGEN Presumptive negative for Presumptive negative for (BEAKER) (test pneumococcal pneumonia - pneumococcal pneumonia - hogh=8150) see comment see commen Presumptive negative for pneumococcal pneumonia, suggesting no current or recent pneumococcal infection. Infection due to S. pneumoniae cannot be ruled out since the antigen present in the sample may be below the detection limit of the test.LEGIONELLA ANTIGEN, [id number] 23:54:00 Test Item Value Reference Range Comments L. PNEUMOPHILA SEROGP 1 Negative - see Negative for L. UR AG (BEAKER) (test comment pneumophila serogroup 1 lunc=3183) antigen, suggesting no recent or current infection with this serogroup. Legionellosis cannot be ruled out since other serogroups and species may cause disease. INFLUENZA A H1N1 [id number] 23:10:00 Test Item Value Reference Range Comments INFLUENZA A RNA (BEAKER) (test Not Detected Not Detected, Inconclusive lnyw=9494) NOVEL H1N1 RNA (BEAKER) (test Not Detected Not Detected, Inconclusive sixk=8636) These assays were performed by real-time RT-PCR (commercial instructor supervisor-PCR) utilizing fluorogenic hydrolysis probe technology for the detection of human Influenza A viruses and the differential detection of novel H1N1 Influenza virus in respiratory specimens. The test is composed of (1) an RNA extraction from patient specimen, and (2) commercial instructor supervisor-PCR amplification and detection with human Influenza A and novel [id number] primers and probes. A well-conserved region of the Influenza A matrix gene is targeted in one set of reactions to identify both seasonal Influenza A and novel H1N1 Influenza virus in the specimen. In addition, a specific region of the hemagglutinin gene is targeted to differentiate the novel H1N1 virusfrom the seasonal human influenza. An internal control is used to confirm PCR amplification. Genetic variation and other factors can affect the accuracy of nucleic acid testing; therefore, the resultsshould be interpreted in light of clinical data. This test was developed and its performance characteristics determined by the [facility] Pathology Department, Section of Molecular Pathology. It has not been cleared or approved by the U.S. Food and Drug Administration (FDA). SinceFDA approval is not required for clinical use of the test, validation was done as required by The Clinical Laboratory Amendments of 1988.These assays were performed by real-time RT-PCR (commercial instructor supervisor-PCR) utilizing fluorogenic hydrolysis probe technology for the detection of human Influenza A viruses and the differential detection of novel H1N1 Influenza virus in respiratory specimens. The test is composed of (1) an RNA extraction from patient specimen, and (2) commercial instructor supervisor-PCR amplification and detection with human Influenza A and novel R9X2-gzpryrxu primers and probes. A well-conserved region of the Influenza A matrix gene is targeted in one set of reactions to identify both seasonal Influenza A and novel H1N1 Influenza virus in the specimen. In addition, a specific region of the hemagglutinin gene is targeted to differentiate the novel H1N1 virus from the seasonal human influenza. An internal control is used to confirm PCR amplification. Genetic variation and other factors can affect the accuracy of nucleic acid testing; therefore, the results should be interpreted in light of clinical data. This test was developed and its performance characteristics determined by the [facility] Pathology Department, Section of Molecular Pathology. It has not been cleared or approved by the U.S. Food and Drug Administration ( FDA). Since FDA approval is not required for clinical use of the test, validation was done as required by The Clinical Laboratory Amendments of 1988.POCT-GLUCOSE [id number] 23:03:00 Test Item Value Reference Range Comments POC-GLUCOSE METER (BEAKER) 233 mg/dL 70-[address] [facility] [address] [facility] (test nlwt=9953) [facility] [address] U/S, RENAL, [id number] 22:23:00Reason for exam:->akiFINAL REPORT U/S, RENAL, COMPLETE CLINICAL INDICATION: "heidi" COMPARISON: None TECHNIQUE: The kidneys and urinary bladder were evaluated using real time dyer scale and color Doppler sonography. FINDINGS:Right kidney : Atrophic echogenic kidney. No hydronephrosis. Left kidney: Atrophic echogenic kidney. No hydronephrosis. Renal Vasculature: Doppler interrogation reveals preserved vascular flow in the main renal arteries and veins bilaterally. The visualized portions of the abdominal aorta and IVC are unremarkable. Urinary bladder: Unremarkable. IMPRESSION: No hydronephrosis.Chronic findings as above. Signed: Sariah Barrios MDReport Verified Date/Time: 01/30/2017 22:23:06 Reading Location: [address] Ortho Consult Reading Room Electronically signed by: SARIAH BARRIOS MD on 2016 10:23 PMSODIUM, RANDOM [id number] 20:40:00 Test Item Value Reference Range Comments SODIUM URINE (BEAKER) (test muju=747) < meq/L Reference Range: No NormalsEOSINOPHIL SMEAR, [id number] 20:40:00 Test Item Value Reference Range Comments EOSINOPHIL SMEAR, URINE (BEAKER) (test No EOS seen No EOS seen knxq=1023) CREATININE, RANDOM [id number] 20:24:00 Test Item Value Reference Range Comments CREATININE URINE (BEAKER) (test fgkm=309) 113.2 mg/dL Reference Range: No NormalsMICROALBUMIN, RANDOM [id number] 20:24:00 Test Item Value Reference Range Comments MICROALBUMIN URINE (BEAKER) (test gawz=2634) 4.2 mg/dL Reference Range: No NormalsURINALYSIS W/ [id number] 20:14:00 Test Item Value Reference Range Comments COLOR (BEAKER) (test fdhr=559) Yellow CLARITY (BEAKER) (test dwdc=326) Hazy SPECIFIC GRAVITY UA (BEAKER) (test pqkx=963) 1.013 1.001-1.035 PH UA (BEAKER) (test axlq=105) 5.0 5.0-8.0 PROTEIN UA (BEAKER) (test sqru=299) 20 mg/dL Negative GLUCOSE UA (BEAKER) (test juay=334) 30 mg/dL Negative KETONES UA (BEAKER) (test vgby=661) Negative Negative BILIRUBIN UA (BEAKER) (test bluo=873) Negative Negative BLOOD UA (BEAKER) (test kvnc=723) Negative Negative NITRITE UA (BEAKER) (test fsmd=093) Negative Negative LEUKOCYTE ESTERASE UA (BEAKER) (test fcer=252) Moderate Negative UROBILINOGEN UA (BEAKER) (test gspi=604) 0.2 mg/dL 0.2-1.0 RBC UA (BEAKER) (test sfsg=384) 1 /HPF WBC UA (BEAKER) (test nckj=288) 5 /HPF MUCUS (BEAKER) (test pnuq=0503) Rare SQUAMOUS EPITHELIAL (BEAKER) (test rcql=038) 1 /HPF SOURCE(BEAKER) (test snde=0265) Urine, Voided POCT-GLUCOSE [id number] 18:25:00 Test Item Value Reference Range Comments POC-GLUCOSE METER (BEAKER) 230 mg/dL 70-110 TESTED AT [address] (test scqw=6567) [facility] [address] POCT-GLUCOSE [id number] 13:49:00 Test Item Value Reference Range Comments POC-GLUCOSE METER (BEAKER) 267 mg/dL 70-110 TESTED AT [address] (test iglj=0247) [facility] [address] HEMOGLOBIN [id number] 11:50:00 Test Item Value Reference Range Comments HEMOGLOBIN A1C (BEAKER) (test kemc=141) 10.7 % 4.3-6.1 TROPONIN [id number] 11:42:00 Test Item Value Reference Range Comments TROPONIN I (BEAKER) (test mfdp=769) 0.02 ng/mL 0.00-0.03 Troponin I (TnI) levels must be interpreted in the context of the presenting symptoms and the clinical findings. Elevated TnI levels indicate myocardial damage, but are not specific for ischemic heart disease. Elevated TnI levels are seen in patients with other cardiac conditions (including myocarditis and congestive heart failure), and slight TnI elevations occur in patients with other conditions, including sepsis, renal failure, acidosis, acute neurological disease, and persistent tachyarrhythmia.POCT-GLUCOSE [id number] 09:41:00 Test Item Value Reference Range Comments POC-GLUCOSE METER (BEAKER) 228 mg/dL 70-[address] [facility] [address] [facility] (test kzin=8541) [facility] [address] RAD, CHEST, 1 VIEW, NON [id number] 07:41:00Reason for exam:->eval pneumoniaShould this be performed at the bedside?->YesFINAL REPORT HISTORY : eval pneumonia. Comparison: None Comment: Single portable view of the chest was obtained. The cardiac silhouette size is enlarged. 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 No pneumothorax or pleural effusion is seen. There is atherosclerotic calcification of the thoracic aorta. There is some patchy left basilar airspace disease. This could represent atelectasis or pneumonitis. Signed: Zuleima Graff [facility] [place] Verified Date/Time: 01/30/2017 07:41:41 ReadingLocation: [facility] B1 C013T Transitional Reading Room [id number] 02:54:00 Test Item Value Reference Range Comments MAGNESIUM (BEAKER) (test ihxj=690) 1.6 mg/dL 1.6-2.6 BASIC METABOLIC [id number] 02:54:00 Test Item Value Reference Range Comments SODIUM (BEAKER) (test 137 meq/L 136-145 hrjj=045) POTASSIUM (BEAKER) (test 3.8 meq/L 3.5-5.1 otzm=537) CHLORIDE (BEAKER) (test 104 meq/L 98-107 qdsj=478) CO2 (BEAKER) (test 19 meq/L 22-29 ptqj=978) BLOOD UREA NITROGEN 48 mg/dL 7-21 (BEAKER) (test fjfz=089) CREATININE (BEAKER) (test 1.76 mg/dL 0.57-1.25 cous=006) GLUCOSE RANDOM (BEAKER) 217 mg/dL 70-105 (test seol=158) CALCIUM (BEAKER) (test 8.9 mg/dL 8.4-10.2 zqrf=440) EGFR (BEAKER) (test 38 mL/min/1.73 sq m ESTIMATED GFR IS NOT pvxf=3473) ACCURATE CREATININE CLEARANCE IN PREDICTING GLOMERULAR FILTRATION RATE. ESTIMATED GFR IS NOT APPLICABLE FOR DIALYSIS PATIENTS. RAPID INFLUENZA A&B [id number] 02:41:00 Test Item Value Reference Range Comments RAPID INFLUENZA A AG (BEAKER) (test Negative Negative, Inconclusive rvib=1517) RAPID INFLUENZA B AG (BEAKER) (test Negative Negative, Inconclusive zzxj=0641) CBC W/PLT COUNT & AUTO [id number] 02:07:00 Test Item Value Reference Range Comments WHITE BLOOD CELL COUNT (BEAKER) (test qgvy=183) 10.6 K/ L 3.5-10.5 RED BLOOD CELL COUNT (BEAKER) (test enlu=131) 4.75 M/ L 4.63-6.08 HEMOGLOBIN (BEAKER) (test fvnm=327) 13.2 GM/DL 13.7-17.5 HEMATOCRIT (BEAKER) (test bgmb=489) 42.4 % 40.1-51.0 MEAN CORPUSCULAR VOLUME (BEAKER) (test hnur=796) 89.3 fL 79.0-92.2 MEAN CORPUSCULAR HEMOGLOBIN (BEAKER) (test 27.8 pg 25.7-32.2 gaqo=230) MEAN CORPUSCULAR HEMOGLOBIN CONC (BEAKER) (test 31.1 GM/DL 32.3-36.5 lrkb=353) RED CELL DISTRIBUTION WIDTH (BEAKER) (test 16.8 % 11.6-14.4 bsjv=672) PLATELET COUNT (BEAKER) (test lvdm=774) 202 K/CU MM 150-450 MEAN PLATELET VOLUME (BEAKER) (test jozu=678) 10.7 fL 9.4-12.4 NUCLEATED RED BLOOD CELLS (BEAKER) (test 0 /100 WBC 0-0 jjgs=937) NEUTROPHILS RELATIVE PERCENT (BEAKER) (test 63 % tjhi=239) LYMPHOCYTES RELATIVE PERCENT (BEAKER) (test 17 % gzhp=983) MONOCYTES RELATIVE PERCENT (BEAKER) (test 18 % aquv=716) EOSINOPHILS RELATIVE PERCENT (BEAKER) (test 1 % javf=162) BASOPHILS RELATIVE PERCENT (BEAKER) (test 0 % jasx=300) NEUTROPHILS ABSOLUTE COUNT (BEAKER) (test 6.60 K/ L 1.78-5.38 gukt=138) LYMPHOCYTES ABSOLUTE COUNT (BEAKER) (test 1.82 K/ L 1.32-3.57 mtuv=878) MONOCYTES ABSOLUTE COUNT (BEAKER) (test 1.94 K/ L 0.30-0.82 boiw=146) EOSINOPHILS ABSOLUTE COUNT (BEAKER) (test 0.10 K/ L 0.04-0.54 likr=712) BASOPHILS ABSOLUTE COUNT (BEAKER) (test 0.02 K/ L 0.01-0.08 oooy=834) IMMATURE GRANULOCYTES-RELATIVE PERCENT (BEAKER) 1 % 0-1 (test zqfx=6407) POCT-GLUCOSE [id number] 23:18:00 Test Item Value Reference Range Comments POC-GLUCOSE METER (BEAKER) 230 mg/dL 70-[address] [facility] [address] [facility] (test uhyn=6946) [facility] [id number]
--- OUTSIDE RECORDS SUMMARY | 2017-07-29 14:19 | XMS REPORT | Clinical Summary ---
:1945 Author Organization [facility] Address [address] [place] [address] Phone Care Team Providers Name Role Phone Unavailable Primary Care Provider Unavailable Allergies No Known Allergies Current Medications Prescription Sig. Disp. Refills Start Date End Date Status potassium chloride Take 1 tablet 30 tablet 0 02/08/2017 Active SA (K-DUR,KLOR-CON) (20 mEq total) 20 MEQ tablet by mouth daily. glipiZIDE Take 1 tablet 0 02/08/2017 Active (GLUCOTROL) 10 MG (10 mg total) tablet by mouth 2 (two) times daily before meals. dabigatran Take 150 mg by 02/08/2017 Discontinued (PRADAXA) 150 mg mouth 2 (two) Cap capsule times daily. metFORMIN Take 500 mg by 02/08/2017 Discontinued (GLUCOPHAGE) 500 MG mouth nightly. tabletIndications: type 2 diabetes mellitus metoprolol Take 25 mg by 02/08/2017 Discontinued (LOPRESSOR) 25 MG mouth 2 (two) tabletIndications: times daily hypertension Take 1/2 tablet twice daily at 6am and 6pm . glipiZIDE Take 10 mg by 02/08/2017 Discontinued (GLUCOTROL) 10 MG mouth 2 (two) tablet times daily before meals. colchicine Take 0.6 mg by 02/08/2017 Discontinued (COLCRYS) 0.6 mg mouth 2 (two) tablet times daily. metFORMIN Take 850 mg by 02/08/2017 Discontinued (GLUCOPHAGE) 850 MG mouth daily tablet with breakfast. valsartan (DIOVAN) Take 320 mg by 02/08/2017 Discontinued 320 MG tablet mouth daily. amiodarone Take 1 tablet 60 tablet 0 02/08/2017 03/10/2017 (PACERONE) 200 MG (200 mg total) tablet by mouth 2 (two) times daily for 30 days. glipiZIDE Take 0.5 0 02/08/2017 02/08/2017 Discontinued (GLUCOTROL) 10 MG tablets (5 mg tablet total) by mouth 2 (two) times daily before meals. furosemide (LASIX) Take 1 tablet 60 tablet 0 02/08/2017 03/10/2017 40 MG tablet (40 mg total) by mouth 2 (two) times daily for 30 days. potassium chloride Take 1 tablet 30 tablet 0 02/08/2017 03/10/2017 SA (K-DUR,KLOR-CON) (20 mEq total) 20 MEQ tablet by mouth daily for 30 days. apixaban (ELIQUIS) Take 1 tablet 60 tablet 0 02/08/2017 03/10/2017 2.5 mg Tab tablet (2.5 mg total) by mouth 2 (two) times daily for 30 days. 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 Atrial fibrillation ([facility]) 01/30/2017 DARRELL (acute kidney injury) ([facility]) 01/30/2017 Pneumonia 01/29/2017 Encounters Date Type Specialty Care Team Description 02/04/2017 Procedure Pass 02/04/2017 Surgery Mandi Álvarez MD 01/30/2017 Orders Only General Internal Medicine 01/29/2017 - Hospital Encounter Cardiology Anabella, Pericardial 02/08/2017 MD Ameya effusion;Pneumonia America Wang, due to infectious MD organism, Nicole, unspecified liane Calvin MD unspecified part of [place], lung;Shortness of EstephaniaMD ajith breath;History of myocarditis;DARRELL (acute kidney injury) ([facility]);Permanent atrial fibrillation ([facility]);Type 2 diabetes mellitus with complication, without long-term current use of insulin ([facility]) after 07/28/2016 Family History Medical History Relation Name Comments Cancer Brother Diabetes Brother Hypertension Brother Heart disease Mother Hypertension Sister Relation Name Status Comments Brother Mother Sister Social History Tobacco Use Types Packs/Day Years Used Date Former Smoker Smokeless Tobacco: Never Used Alcohol Use Drinks/Week oz/Week Comments No Sex Assigned at Date Recorded Not on file Last Filed Vital Signs Vital Sign Reading Time Taken Blood Pressure 111/64 02/08/2017 11:41 AM UTILIZATION COORDINATOR Pulse 77 02/08/2017 11:41 AM UTILIZATION COORDINATOR Temperature 36.3 C (97.4 F) 02/08/2017 11:41 AM UTILIZATION COORDINATOR Respiratory Rate 16 02/08/2017 11:41 AM UTILIZATION COORDINATOR Oxygen Saturation 96% 02/08/2017 11:41 AM UTILIZATION COORDINATOR Inhaled Oxygen Concentration - - Weight 101.7 kg (224 lb 1.6 oz) 02/08/2017 1:00 AM UTILIZATION COORDINATOR Height 188 cm (6' 2") 01/29/2017 10:54 PM UTILIZATION COORDINATOR Body Mass Index 28.77 02/08/2017 1:00 AM UTILIZATION COORDINATOR Plan of Treatment Not on file Procedures Procedure Name Priority Date/Time Associated Diagnosis Comments R CATH 02/04/2017 10:16 AM UTILIZATION COORDINATOR PULMONARY HTN Case Notes PT IS IP after 07/28/2016 Results RHYTHM STRIP - SCAN (03/02/2017 8:04 AM)Only the most recent of2 resultswithin the time period is included.POC-Glucose meter (02/08/2017 1:16 PM)Only the most recent of41 resultswithin the time period is included. Component Value Ref Range POC-Glucose Meter 270 (H)Comment: TESTED AT [address] 70 - 110 mg/[place] [id number] Specimen Performing Laboratory Blood [facility] [address] [address] CBC with platelet count + automated diff (02/08/2017 5:57 AM)Only the most recent of10 resultswithin the time period is included. Component Value Ref Range WBC 5.6 3.5 - 10.5 K/L RBC 4.28 (L) 4.63 - 6.08 M/L Hemoglobin 11.7 (L) 13.7 - 17.5 GM/DL Hematocrit 37.4 (L) 40.1 - 51.0 % MCV 87.4 79.0 - 92.2 fL MCH 27.3 25.7 - 32.2 pg MCHC 31.3 (L) 32.3 - 36.5 GM/DL RDW 16.2 (H) 11.6 - 14.4 % Platelets 100 (L) 150 - 450 K/CU MM MPV 10.7 9.4 - 12.4 fL nRBC 0 0 - 0 /100 WBC % Neutros 50 % % Lymphs 30 % % Monos 18 % % Eos 2 % % Baso 1 % # Neutros 2.77 1.78 - 5.38 K/L # Lymphs 1.66 1.32 - 3.57 K/L # Monos 1.02 (H) 0.30 - 0.82 K/L # Eos 0.09 0.04 - 0.54 K/L # Baso 0.03 0.01 - 0.08 K/L Immature Granulocytes-Relative 0 0 - 1 % Specimen Performing Laboratory Blood - Arm, [address] [address] CBC with platelet count + automated diff (02/08/2017 5:57 AM)Only the most recent of10 resultswithin the time period is included. Specimen Performing Laboratory Blood Narrative The following orders were created for panel order CBC with platelet count + automated diff. Procedure Abnormality Status --------- ------ CBC with platelet count ...[[id number]]AbnormalFinal result Please view results for these tests on the individual orders. Magnesium (02/08/2017 5:57 AM)Only the most recent of10 resultswithin the time period is included. Component Value Ref Range Magnesium 1.5 (L) 1.6 - 2.6 mg/dL Specimen Performing Laboratory Blood - Arm, [address] [address] Basic metabolic panel (02/08/2017 5:57 AM)Only the most recent of10 resultswithin the time period is included. Component Value Ref Range Sodium 137 136 - 145 meq/L Potassium 3.3 (L) 3.5 - 5.1 meq/L Chloride 98 98 - 107 meq/L CO2 27 22 - 29 meq/L BUN 30 (H) 7 - 21 mg/dL Creatinine 1.59 (H) 0.57 - 1.25 mg/dL Glucose 116 (H) 70 - 105 mg/dL Calcium 9.0 8.4 - 10.2 mg/dL EGFR 43Comment: ESTIMATED GFR IS NOT ACCURATE mL/min/1.73 sq m CREATININE CLEARANCE IN PREDICTING GLOMERULAR FILTRATION RATE. ESTIMATED GFR IS NOT APPLICABLE FOR DIALYSIS PATIENTS. Specimen Performing Laboratory Blood - Arm, Left [address] [address] CARDIAC CATH REPORT - SCAN (02/07/2017 5:00 PM)Manual Differential (02/07/2017 4:30 AM)Only the most recent of6 resultswithin the time period is included. Component Value Ref Range % Neutros (manual) 52 % % Lymphs (manual) 26 % % Monos (manual) 14 % % Eos (manual) 6 % % Baso (manual) 0 % % Bands (manual) 1 0 - 10 % % Atypical Lymphs 1 (H) 0 - 0 % # Neutros (manual) 3.33 1.80 - 8.00 K/L # Lymphs (manual) 1.66 1.48 - 4.50 K/L # Monos (manual) 0.90 0.00 - 1.30 K/L # Eos (manual) 0.38 0.00 - 0.50 K/L # Baso (manual) 0.00 0.00 - 0.20 K/L # Bands (manual) 0.1 0.0 - 0.8 K/L # Atypical Lymphs 0.06 (H) 0.00 - 0.00 K/L Total Counted 100 Bands plus Segmented Neutrophils 3.39 WBC Morphology Normal Platelet Morphology Normal RBC Morphology Normal Specimen Performing Laboratory Blood [address] [address] XR chest 1 view portable / bedside (02/05/2017 2:26 PM)Only the most recent of2 resultswithin the time period is included. Specimen Performing Laboratory GE RIS Narrative FINAL REPORT CLINICAL HISTORY: shortness of breath s/p RHC TECHNIQUE: 1 view of the chest. COMPARISON: 01/31/2017 IMPRESSION: Trace bilateral pleural effusions are again seen with left basilar atelectasis. The cardiomediastinal silhouette is magnified by technique with a pacemaker. Signed: Barbara Pizarro MD Report Verified Date/Time:02/05/2017 14:44:20 Reading Location: [address] Consult Reading Room Procedure Note Interface, External Ris In - 02/05/2017 2:46 PM UTILIZATION COORDINATOR FINAL REPORT CLINICAL HISTORY: shortness of breath s/p RHC TECHNIQUE: 1 view of the chest. COMPARISON: 01/31/2017 IMPRESSION: Trace bilateral pleural effusions are again seen with left basilar atelectasis. The cardiomediastinal silhouette is magnified by technique with a pacemaker. Signed: Barbara Pizarro MD Report Verified Date/Time: 02/05/2017 14:44:20 Reading Location: [address] Consult Reading Room Urinalysis w/Microscopic + Reflex to Culture (02/03/2017 10:04 AM) Component Value Ref Range Color, UA Yellow Clarity, UA Clear Specific [place], UA 1.016 1.001 - 1.035 pH, UA 5.0 5.0 - 8.0 Protein, UA 20 mg/dL (A) Negative Glucose, UA 50 mg/dL (A) Negative Ketones, UA Negative Negative Bilirubin, UA Negative Negative Blood, UA Trace (A) Negative Nitrite, UA Negative Negative Leukocytes, UA Negative Negative Urobilinogen, UA 0.2 0.2 - 1.0 mg/dL RBC, UA 3 /HPF WBC, UA 4 /HPF Bacteria, UA Occasional Mucus Occasional Squam Epithel, UA 1 /HPF Amorphous Crystals Occasional Specimen Source Specimen Performing Laboratory Urine - Urine, Clean Catch [address] [address] Protein, random urine (02/03/2017 10:04 AM) Component Value Ref Range Protein, Urine 19 (H) 0 - 14 mg/dL Specimen Performing Laboratory Urine - Urine, Clean Catch [address] [address] Creatinine, random urine (02/03/2017 10:04 AM)Only the most recent of2 resultswithin the time period is included. Component Value Ref Range Creatinine, Ur 127.3 mg/dL Specimen Performing Laboratory Urine - Urine, Clean Catch [address] [address] Narrative Reference Range: No Normals B-type Natriuretic Factor (BNP) (02/03/2017 4:28 AM) Component Value Ref Range BNP 315 (H) 0 - 100 pg/mL Specimen Performing Laboratory Blood - Arm, Left [facility] [address] [place] [address], [place] [address] CT chest without IV contrast (02/02/2017 10:50 AM) Specimen Performing Laboratory GE RIS Narrative FINAL REPORT Chest CT without contrast Reason for study: Pneumonia Comparison: Chest x-ray, 01/31/2017 Technique: Non contrast chest CT Dose modulation, iterative reconstruction, and/or weight based adjustment of the mA/kV was [...] and trace left pleural effusion are identified. Patchy pulmonary ground glass opacities are identified in the lung bases adjacent to the pleural effusions. Some compressive atelectasis is also seen. A few scattered calcified granulomas are seen. Tubular densities are identified in the peripheral left lung apex and right lung base. These may represent dilated peripheral pulmonary artery branches or more likely impacted bronchioles. There are some mild degenerative changes at the lower thoracic spine. Limited exam of the upper abdomen shows no acute non contrast abnormality. IMPRESSION 1. Small intermediate density pericardial [...] This could be followed. Signed: Car Kaba MD Report Verified Date/Time:02/02/2017 11:27:58 Reading Location: [address] Ortho Consult Reading Room Procedure Note Interface, External Ris In - 02/02/2017 11:30 AM UTILIZATION COORDINATOR FINAL REPORT Chest CT without contrast Reason for study: Pneumonia Comparison: Chest x-ray, 01/31/2017 Technique: Non contrast chest CT Dose modulation, iterative reconstruction, and/or weight based adjustment of the mA/kV was [...] and trace left pleural effusion are identified. Patchy pulmonary ground glass opacities are identified in the lung bases adjacent to the pleural effusions. Some compressive atelectasis is also seen. A few scattered calcified granulomas are seen. Tubular densities are identified in the peripheral left lung apex and right lung base. These may represent dilated peripheral pulmonary artery branches or more likely impacted bronchioles. There are some mild degenerative changes at the lower thoracic spine. Limited exam of the upper abdomen shows no acute non contrast abnormality. IMPRESSION 1. Small intermediate density pericardial [...] This could be followed. Signed: Car Kaba MD Report Verified Date/Time: 02/02/2017 11:27:58 Reading Location: [facility] C013 Ortho Consult Reading Room chest 2 views (01/31/2017 3:37 PM) Specimen Performing Laboratory ViFlux RIS Narrative FINAL REPORT HISTORY : dyspnea. Comparison: 01/30/2017 Comment: [...] seen. There is a mild age-indeterminate compression deformity/fracture of one of the lower thoracic vertebral bodies. Signed: Zuleima Graff MD Report Verified Date/Time:01/31/2017 15:44:13 Reading Location: [facility] B1 C013X Ortho Consult Reading Room Procedure Note Interface, External Ris In - 01/31/2017 3:46 PM UTILIZATION COORDINATOR FINAL REPORT HISTORY : dyspnea. Comparison: 01/30/2017 Comment: [...] seen. There is a mild age-indeterminate compression deformity/fracture of one of the lower thoracic vertebral bodies. Signed: Zuleima Graff MD Report Verified Date/Time: 01/31/2017 15:44:13 Reading Location: [address] Ortho Consult Reading Room CARDIOGRAM REPORT - SCAN (01/31/2017 1:20 PM)US renal complete (01/30/2017 9:49 PM) Specimen Performing Laboratory GE RIS Narrative FINAL REPORT U/S, RENAL, COMPLETE CLINICAL INDICATION:"darrell" COMPARISON: None TECHNIQUE:The kidneys and urinary bladder were evaluated using real time coley scale and color Doppler sonography. FINDINGS: Right kidney: Atrophic echogenic kidney. No hydronephrosis. Left kidney: Atrophic echogenic kidney. No hydronephrosis. Renal Vasculature: Doppler interrogation reveals preserved vascular flow in the main renal arteries and veins bilaterally. The visualized portions of the abdominal aorta and IVC are unremarkable. Urinary bladder: Unremarkable. IMPRESSION: No hydronephrosis. Chronic findings as above. Signed: Sariah Barrios MD Report Verified Date/Time:01/30/2017 22:23:06 Reading Location: [facility] C013 Ortho Consult Reading Room Procedure Note Interface, External Ris In - 01/30/2017 10:25 PM UTILIZATION COORDINATOR FINAL REPORT U/S, RENAL, COMPLETE CLINICAL INDICATION: "darrell" COMPARISON: None TECHNIQUE: The kidneys and urinary bladder were evaluated using real time coley scale and color Doppler sonography. FINDINGS: Right kidney: Atrophic echogenic kidney. No hydronephrosis. Left kidney: Atrophic echogenic kidney. No hydronephrosis. Renal Vasculature: Doppler interrogation reveals preserved vascular flow in the main renal arteries and veins bilaterally. The visualized portions of the abdominal aorta and IVC are unremarkable. Urinary bladder: Unremarkable. IMPRESSION: No hydronephrosis. Chronic findings as above. Signed: Sariah Barrios MD Report Verified Date/Time: 01/30/2017 22:23:06 Reading Location: [facility] [id number] Ortho Consult Reading Room 2D Echo W/Doppler(CW/PW/Color) (01/30/2017 8:33 PM) Component Value Ref Range Ejection Fraction Specimen Performing Laboratory [facility] Narrative Transthoracic Echocardiography Report (TTE) Demographics Patient Name ELY COLEY Date of Study 2016 [id number] GenderMale Visit Number [id number] [place] [id number] Number [id number] Number Date of Birth1945 Referring Physician Nicole Streeter Age71 year(s) Animal Husbandry Technician Joni Kirkpatrick MD Ferdinand Tineo MD Fellow LOGAN Ryan Procedure Type of Study TTE procedure:2DECHO W DOPPLER(CW/PW/COLOR) (STAT) Indications:Suspected Pericardial conditions. Clinical History DM, CHF, AFIB, DARRELL, Pnuemonia, HTN, Stroke HGB 13.2 HCT 42.4 % PPM Contrast Medium: Definity. Height: 74 inches Weight: 103.42 kg (228 lbs) BSA: 2.3 m^2 BMI: 29.27 kg/m^2 HR: 75 bpm BP: 124/73 mmHg Summary The left ventricle is chamber size (by vol index) is normal (male - LVED vol - 34-74ml/m2). Moderate concentric LV hypertrophy. All of the LV segments have low normal contractility . Septal motion is abnormal, likely related to prior cardiac surgery . LVEF by Alvarado's method of disk assessment is normal (55-60%) . RV chamber size appears moderately enlarged by limited views . Global RV systolic function is depressed . Estimated peak systolic pressure is at least 35-40 mmHg. The estimated RA pressure by IVC dynamics 16-20mmHg . No significant pericardial effusion is visualized Previous Study No prior exam available for comparison. Signature Findings Left Ventricle The left ventricle is chamber size (by vol index) is normal (male - LVED vol - 34-74ml/m2). Moderate concentric LV hypertrophy. All of the LV segments have low normal contractility . Septal motion is abnormal, likely related to prior cardiac surgery . LVEF by Alvarado's method of disk assessment is normal (55-60%) . Left AtriumLA size is normal (16-34 ml/m2) . Right VentricleRV chamber size appears moderately enlarged by limited views . Global RV systolic function is depressed . Right Atrium RA size is normal. Aortic Valve There is mild aortic regurgitation. Mitral Valve Mild MV leaflet thickening. Tricuspid ValveMild tricuspid regurgitation. Estimated peak systolic pressure is at least 35-40 mmHg. Pulmonic Valve PV is not well visualized; function appears normal by Doppler visualized. AortaAortic root size (SInus of Valsalva diameter) is normal . PericardiumNo significant pericardial effusion is visualized. IVC/SVC/PA/PV/PleuralThe estimated RA pressure by IVC dynamics 16-20mmHg . Chambers/Structures Left Atrium LA Volume: 77.81 ml LA Area: 24.76 cm^ 2 LA Vol. Index: 34 ml/m^2 Left Ventricle LVIDd: 3.66 cm LVIDs: 2.44 cm LV Septum Diastolic: 1.65 cm LV PW Diastolic: 1.94 cmLV FS: 33.3 % LVEDV Alvarado's:71.18 ml LVESV Alvarado's:30.55 mlLVEDVI: 31 ml/ m^2 LVEF Alvarado's: 57.1 %LVESVI: 13 ml/m^2 LVOT Diameter: 2.09 cm Doppler/Quantitative Measurements Mitral Valve MV Abhi. Peak: Tissue Doppler E' Lateral Velocity: 0.09 m/s Aortic Valve Peak Velocity: 0.92 m/sMean Velocity: 0.64 m/s Peak Gradient: 3.38 mmHg Mean Gradient: 1.84 mmHg AV Area (continuity): 2.22 cm^2 AV VTI: 15.11 cm AV DVI: 0.65 LVOT Peak Velocity: 0.54 m/s Peak Gradient: 1.18 mmHg Mean Velocity: 0.38 m/s Mean Gradient: 0.66 mmHg LVOT Diameter: 2.09 cmLVOT VTI: 9.8 cm LVOT Area: 3.43 cm^2LVOT SV:33.6 ml LVOT CO: 2.52 l/min LVOT CI: 1.1 l/min/m^2 Tricuspid Valve TR Velocity: 2.26 m/s TR Gradient: 20.36 mmHg Procedure Note Interface, External Ris In - 01/31/2017 12:47 PM UTILIZATION COORDINATOR Transthoracic Echocardiography Report (TTE) Demographics Patient Name ELY COLEY Date of Study 01/30/2017 Gender Male Visit Number [id number] Race Unknown Room Number 1419 Number Date of 1945 Referring Physician Nicole Streeter Age 71 year(s) Animal Husbandry Technician Joni Kirkpatrick RDCS Interpreting MD Ferdinand Dalton MD Fellow LOGAN Ryan Procedure Type of Study TTE procedure:2DECHO W DOPPLER(CW/PW/COLOR) (STAT) Indications:Suspected Pericardial conditions. Clinical History DM, CHF, AFIB, DARRELL, Pnuemonia, HTN, Stroke HGB 13.2 HCT 42.4 % PPM Contrast Medium: Definity. Height: 74 inches Weight: 103.42 kg (228 lbs) BSA: 2.3 m^2 BMI: 29.27 kg/m^2 HR: 75 bpm BP: 124/73 mmHg Summary The left ventricle is chamber size (by vol index) is normal (male - LVED vol - 34-74ml/m2). Moderate concentric LV hypertrophy. All of the LV segments have low normal contractility . Septal motion is abnormal, likely related to prior cardiac surgery . LVEF by Alvarado's method of disk assessment is normal (55-60%) . RV chamber size appears moderately enlarged by limited views . Global RV systolic function is depressed . Estimated peak systolic pressure is at least 35-40 mmHg. The estimated RA pressure by IVC dynamics 16-20mmHg . No significant pericardial effusion is visualized Previous Study No prior exam available for comparison. Signature Findings Left Ventricle The left ventricle is chamber size (by vol index) is normal (male - LVED vol - 34-74ml/m2). Moderate concentric LV hypertrophy. All of the LV segments have low normal contractility . Septal motion is abnormal, likely related to prior cardiac surgery . LVEF by Alvarado's method of disk assessment is normal (55-60%) . Left Atrium LA size is normal (16-34 ml/m2) . Right Ventricle RV chamber size appears moderately enlarged by limited views . Global RV systolic function is depressed . Right Atrium RA size is normal. Aortic Valve There is mild aortic regurgitation. Mitral Valve Mild MV leaflet thickening. Tricuspid Valve Mild tricuspid regurgitation. Estimated peak systolic pressure is at least 35-40 mmHg. Pulmonic Valve PV is not well visualized; function appears normal by Doppler visualized. Aorta Aortic root size (SInus of Valsalva diameter) is normal . Pericardium No significant pericardial effusion is visualized. IVC/SVC/PA/PV/Pleural The estimated RA pressure by IVC dynamics 16-20mmHg . Chambers/Structures Left Atrium LA Volume: 77.81 ml LA Area: 24.76 cm^2 LA Vol. Index: 34 ml/m^2 Left Ventricle LVIDd: 3.66 cm LVIDs: 2.44 cm LV Septum Diastolic: 1.65 cm LV PW Diastolic: 1.94 cm LV FS: 33.3 % LVEDV Alvarado's:71.18 ml LVESV Alvarado's:30.55 ml LVEDVI: 31 ml/m^2 LVEF Alvarado's: 57.1 % LVESVI: 13 ml/m^2 LVOT Diameter: 2.09 cm Doppler/Quantitative Measurements Mitral Valve MV Abhi. Peak: Tissue Doppler E' Lateral Velocity: 0.09 m/s Aortic Valve Peak Velocity: 0.92 m/s Mean Velocity: 0.64 m/s Peak Gradient: 3.38 mmHg Mean Gradient: 1.84 mmHg AV Area (continuity): 2.22 cm^2 AV VTI: 15.11 cm AV DVI: 0.65 LVOT Peak Velocity: 0.54 m/s Peak Gradient: 1.18 mmHg Mean Velocity: 0.38 m/s Mean Gradient: 0.66 mmHg LVOT Diameter: 2.09 cm LVOT VTI: 9.8 cm LVOT Area: 3.43 cm^2 LVOT SV:33.6 ml LVOT CO: 2.52 l/min LVOT CI: 1.1 l/min/m^2 Tricuspid Valve TR Velocity: 2.26 m/s TR Gradient: 20.36 mmHg Microalbumin, random urine (01/30/2017 7:36 PM) Component Value Ref Range Microalbumin, Urine 4.2 mg/dL Specimen Performing Laboratory Urine - Urine, Voided [address] [address] Narrative Reference Range: No Normals Legionella antigen, urine (01/30/2017 7:36 PM) Component Value Ref Range Legionella Urine Antigen Negative - see commentComment: Negative for L. pneumophila serogroup 1 antigen, suggesting no recent or current infection with this serogroup. Legionellosis cannot be ruled out since other serogroups and species may cause disease. Specimen Performing Laboratory Urine - Urine, Voided [address] [address] Sodium, random urine (01/30/2017 7:36 PM) Component Value Ref Range Sodium Urine <20 meq/L Specimen Performing Laboratory Urine - Urine, Voided [address] [address] Narrative Reference Range: No Normals Urinalysis w/Microscopic (01/30/2017 7:36 PM) Component Value Ref Range Color, UA Yellow Clarity, UA Hazy Specific [place], UA 1.013 1.001 - 1.035 pH, UA 5.0 5.0 - 8.0 Protein, UA 20 mg/dL (A) Negative Glucose, UA 30 mg/dL (A) Negative Ketones, UA Negative Negative Bilirubin, UA Negative Negative Blood, UA Negative Negative Nitrite, UA Negative Negative Leukocytes, UA Moderate (A) Negative Urobilinogen, UA 0.2 0.2 - 1.0 mg/dL RBC, UA 1 /HPF WBC, UA 5 /HPF Mucus Rare Squam Epithel, UA 1 /HPF Specimen Source Urine, Voided Specimen Performing Laboratory Urine - Urine, Voided [address] [address] Eosinophil smear (01/30/2017 7:36 PM) Component Value Ref Range Eosinophil Smear No EOS seen No EOS seen Specimen Performing Laboratory Urine - Urine, Voided [address] [address] Strep pneumoniae antigen (01/30/2017 3:00 PM) Component Value Ref Range Strep pneumoniae Antigen Presumptive negative for Presumptive negative for pneumococcal pneumonia - see pneumococcal pneumonia - see comment comment, Presumptive negative for pneumococcal meningitis - see comment Specimen Performing Laboratory Urine - Urine, Unspecified Source [address] [address] Narrative Presumptive negative for pneumococcal pneumonia, suggesting no current or recent pneumococcal infection. Infection due to S. pneumoniae cannot be ruled out since the antigen present in the sample may be below the detection limit of the test. Troponin I (01/30/2017 10:30 AM) Component Value Ref Range Troponin I 0.02 0.00 - 0.03 ng/mL Specimen Performing Laboratory Blood - Arm, Left [address] [id number] Narrative Troponin I (TnI) levels must be interpreted [...] failure, acidosis, acute neurological disease, and persistent tachyarrhythmia. Influenza A H1N1 PCR (01/30/2017 1:52 AM) Component Value Ref Range Influenza A RNA Not Detected Not Detected, Inconclusive Novel H1N1 RNA Not Detected Not Detected, Inconclusive Specimen Performing Laboratory Nasal - Nasopharyngeal Swab [facility] [address] These assays were performed by real-time RT-PCR (subpoena server-PCR) utilizing fluorogenic hydrolysis probe technology for the detection of human Influenza A viruses and the differential detection of novel H1N1 Influenza virus in respiratory specimens. The test is composed of (1) an RNA extraction from patient specimen, and (2) subpoena server- PCR amplification and detection with human Influenza A and novel [id number] primers and probes. A well-conserved region of the Influenza A matrix gene is targeted in one set of reactions to identify both seasonal Influenza A and novel H1N1 Influenza virus in the specimen.In addition, a specific region of the hemagglutinin gene is targeted to differentiate the novel H1N1 virus from the seasonal human influenza. An internal control is used to confirm PCR amplification.Genetic variation and other factors can affect the accuracy of nucleic acid testing; therefore, the results should be interpreted in light of clinical data. This test was developed and its performance characteristics determined by the [facility] Pathology Department, Section of Molecular Pathology.It has not been cleared or approved by the U.S. Food and Drug Administration (FDA).Since FDA approval is not required for clinical use of the test, validation was done as required by The Clinical Laboratory Amendments of 1988. These assays were performed by real-time RT-PCR (subpoena server-PCR) utilizing fluorogenic hydrolysis probe technology for the detection of human Influenza A viruses and the differential detection of novel H1N1 Influenza virus in respiratory specimens. The test is composed of (1) an RNA extraction from patient specimen, and (2) subpoena server- PCR amplification and detection with human Influenza A and novel [id number] primers and probes. A well-conserved region of the Influenza A matrix gene is targeted in one set of reactions to identify both seasonal Influenza A and novel H1N1 Influenza virus in the specimen.In addition, a specific region of the hemagglutinin gene is targeted to differentiate the novel H1N1 virus from the seasonal human influenza. An internal control is used to confirm PCR amplification.Genetic variation and other factors can affect the accuracy of nucleic acid testing; therefore, the results should be interpreted in light of clinical data. This test was developed and its performance characteristics determined by the [facility] Pathology Department, Section of Molecular Pathology.It has not been cleared or approved by the U.S. Food and Drug Administration (FDA).Since FDA approval is not required for clinical use of the test, validation was done as required by The Clinical Laboratory Amendments of 1988. Rapid Influenza A&B Screen (01/30/2017 1:52 AM) Component Value Ref Range Rapid Influenza A Antigen Negative Negative, Inconclusive Rapid influenza B Antigen Negative Negative, Inconclusive Specimen Performing Laboratory Nasal - Nasopharyngeal Swab [address] [address] Hemoglobin A1c (01/30/2017 1:49 AM) Component Value Ref Range Hemoglobin A1C 10.7 (H) 4.3 - 6.1 % Specimen Performing Laboratory Blood - Arm, Left [address] [id number] ECG 12 lead (01/30/2017 1:13 AM) Specimen Performing Laboratory GE MUSE Narrative Ventricular Rate 93 BPM Atrial Rate 94 BPM QRS Duration 100 ms Q-T Interval 368 ms QTC Calculation(Bazett) 457 ms R Lorado 13 degrees T Lorado [address] & T wave abnormality, consider inferior ischemia ST & T wave abnormality, consider anterolateral ischemia Abnormal ECG No previous ECGs available Confirmed by MD OVIEDO JOSEPH P ([id number]) on 01/31/2017 2:18:43 PM Procedure Note Interface, External Ris In - 01/31/2017 2:18 PM UTILIZATION COORDINATOR Ventricular Rate 93 BPM Atrial Rate 94 BPM QRS Duration 100 ms Q-T Interval 368 ms QTC Calculation(Bazett) 457 ms R Lor[place] 13 degrees T [place] [address] & T wave abnormality, consider inferior ischemia ST & T wave abnormality, consider anterolateral ischemia Abnormal ECG No previous ECGs available Confirmed by MD OVIEDO JOSEPH P ([id number]) on 01/31/2017 2:18:43 PM after 07/28/2016
[2017-07-29] MEDS ORDERED: FUROSEMIDE 100 MG/10 ML VIAL IV ONE (15:28)
--- NOTE | 2017-07-29 15:38 | RAD REPORT ---
EXAM DESCRIPTION: VASExtrem Venous W Compress Bil07/29/2017 3:31 pm CLINICAL HISTORY: Bilateral leg swelling COMPARISON: 2017 FINDINGS: The common femoral, superficial femoral, popliteal and posterior tibial veins bilaterally are compressible and demonstrate augmentation. Doppler demonstrates good flow. IMPRESSION: No evidence of deep venous thrombosis involving either lower extremity.
[2017-07-29 16:12] LABS: Absolute Lymphocytes (CBC) 2.3 K/uL (0.7-4.9); Absolute Monocytes 1.7 K/uL (0.1-1.3); Absolute Neutrophil 4.3 K/uL (1.8-8.0); Basophils % 0.8 % (0-1.3); Eosinophils % 3.3 % (0-4.4); Hematocrit 35.8 % (39.6-49.0); Lymphocytes % 26.6 % (15.3-44.8); MCV 95.4 fL (80-100); MPV 8.2 fL (7.6-11.3); Monocytes % 19.2 % (3.3-12.3); RBC Red Blood Cell Count 3.75 M/uL (4.33-5.43)
[2017-07-29 16:26] LABS: Potassium 4.1 mmol/L (3.5-5.1)
--- NOTE | 2017-07-29 16:59 | EDPHYS ---
Physician Documentation [facility] Name: Ely Coley Age: 72 yrs Sex: Male : 1945 Arrival Date: 07/29/2017 Time: 14:19 Bed 26 Private MD: Jean Carlos Velásquez E ED Physician Jerome Morales HPI: 07/29 15:25 This 72 yrs old Male presents to ER via Ambulatory with complaints of Leg jr8 Swelling. 15:25 The patient presents with swelling. The complaints affect the right leg and left leg. jr8 Onset: The symptoms/episode began/occurred gradually, 1 month(s) ago. Modifying factors: The symptoms are alleviated by lasix the symptoms are aggravated by nothing. Associated signs and symptoms: The patient has no apparent associated signs or symptoms. Severity of symptoms: At their worst the symptoms were moderate, in the emergency department the symptoms are unchanged. The patient has not experienced similar symptoms in the past. The patient has been recently seen by a physician:. Historical: - Allergies: 14:20 steroids; sg - PMHx: 14:20 Atrial Fib; CVA; Diabetes - NIDDM; sg - PSHx: 14:20 pace maker; sg - Immunization history:: Adult Immunizations up to date. - Social history:: Smoking status: Patient/guardian denies using tobacco. - Ebola Screening: : Patient negative for fever greater than or equal to 101.5 degrees Fahrenheit, and additional compatible Ebola Virus Disease symptoms Patient denies exposure to infectious person Patient denies travel to an Ebola-affected area in the 21 days before illness onset No symptoms or risks identified at this time. ROS: 16:54 Eyes: Negative for injury, pain, redness, and discharge, ENT: Negative for injury, jr8 pain, and discharge, Neck: Negative for injury, pain, and swelling, Respiratory: Negative for shortness of breath, cough, wheezing, and pleuritic chest pain, Abdomen/GI: Negative for abdominal pain, nausea, vomiting, diarrhea, and constipation, Back: Negative for injury and pain, MS/Extremity: Negative for injury and deformity, Skin: Negative for injury, rash, and discoloration, Neuro: Negative for headache, weakness, numbness, tingling, and seizure. 16:54 Cardiovascular: Positive for edema. Exam: 16:54 Eyes: Pupils equal round and reactive to light, extra-ocular motions intact. Lids and jr8 lashes normal. Conjunctiva and sclera are non-icteric and not injected. Cornea within normal limits. Periorbital areas with no swelling, redness, or edema. ENT: Nares patent. No nasal discharge, no septal abnormalities noted. Tympanic membranes are normal and external auditory canals are clear. Oropharynx with no redness, swelling, or masses, exudates, or evidence of obstruction, uvula midline. Mucous membranes moist. Neck: Trachea midline, no thyromegaly or masses palpated, and no cervical lymphadenopathy. Supple, full range of motion without nuchal rigidity, or vertebral point tenderness. No Meningismus. Respiratory: Lungs have equal breath sounds bilaterally, clear to auscultation and percussion. No rales, rhonchi or wheezes noted. No increased work of breathing, no retractions or nasal flaring. Abdomen/GI: Soft, non-tender, with normal bowel sounds. No distension or tympany. No guarding or rebound. No evidence of tenderness throughout. Back: No spinal tenderness. No costovertebral tenderness. Full range of motion. Skin: Warm, dry with normal turgor. Normal color with no rashes, no lesions, and no evidence of cellulitis. MS/ Extremity: Pulses equal, no cyanosis. Neurovascular intact. Full, normal range of motion. Neuro: Awake and alert, GCS 15, oriented to person, place, time, and situation. Cranial nerves II-XII grossly intact. Motor strength 5/5 in all extremities. Sensory grossly intact. Cerebellar exam normal. Normal gait. 16:54 Cardiovascular: Rate: normal, Rhythm: regular, Pulses: Pulses are 2+ in right radial artery and left radial artery. Heart sounds: normal, normal S1and S2, no S3 or S4, no murmur, no rub, no gallop, Edema: 3+ edema to level of left midcalf, left ankle, left foot, right midcalf, right ankle and right foot, JVD: is not appreciated. Vital Signs: 14:22 Pulse 67; Resp 16; Temp 97.6; Pulse Ox 97% ; Weight 108.86 kg; Height 6 ft. 0 in. sg (182.88 cm); Pain 0/10; 14:24 BP 156 / 66; sg 16:50 BP 160 / 59; Pulse 59; Resp 18; Pulse Ox 98% on R/A; mb3 14:22 Body Mass Index 32.55 (108.86 kg, 182.88 cm) sg MDM: 14:27 Patient medically screened. jr8 16:54 Differential diagnosis: Renal Insufficiency, CHF, infection, venous insufficiency, jr8 lymphedema, DVT. Data reviewed: vital signs, nurses notes, lab test result(s), radiologic studies, ultrasound, and as a result, I will discharge patient. Data interpreted: Pulse oximetry: on room air is 98 %. Interpretation: normal. Counseling: I had a detailed discussion with the patient and/or guardian regarding: the historical points, exam findings, and any diagnostic results supporting the discharge/admit diagnosis, lab results, radiology results, the need for outpatient follow up, a layout mechanic, nephrology , to return to the emergency department if symptoms worsen or persist or if there are any questions or concerns that arise at home. ED course: Discussed with patient that he needs to f/u with nephrology and cardiology. If worse to come back. Will up patients lasix . 07/29 15:08 Order name: CBC with Diff; Complete Time: 16:18 [facility] 07/29 15:08 Order name: Basic Metabolic Panel; Complete Time: 16:26 [facility] 07/29 15:08 Order name: IV; Complete Time: 16:08 [facility] 07/29 15:08 Order name: US Extremity Venous W Compression Kennedy; Complete Time: 15:40 Administered Medications: 16:05 Drug: Lasix 60 mg Route: IVP; Site: left antecubital; kr2 17:42 Follow up: Response: No adverse reaction mb3 Disposition: 18:37 Co-signature as Attending Physician, Jerome Morales MD. rn Disposition: 07/29/17 16:58 Discharged to Home. Impression: Edema, unspecified. - Condition is Stable. - Discharge Instructions: Edema. - Prescriptions for Lasix 40 mg Oral Tablet - take 1 tablet by ORAL route as directed Take one tablet in the AM and then 1/2 tablet before bedtime; 30 tablet. - Medication Reconciliation Form, Thank You Letter, Antibiotic Education, Prescription Opioid Use form. - Follow up: Private Physician; When: 2 - 3 days; Reason: Recheck today's complaints, Continuance of care, Re-evaluation by your physician. - Problem is new. - Symptoms have improved. Signatures: Dispatcher [employer] EDMS Moo Ugalde RN RN sg Jerome Morales MD MD rn Roszak, Josh, PA PA jr8 Arlen Sanon RN RN kr2 Umer Rankin, RN RN mb3 Corrections: (The following items were deleted from the chart) 17:41 16:58 07/29/2017 16:58 Discharged to Home. Impression: Edema, unspecified. Condition is mb3 Stable. Forms are Medication Reconciliation Form, Thank You Letter, Antibiotic Education, Prescription Opioid Use. Follow up: Private Physician; When: 2 - 3 days; Reason: Recheck today's complaints, Continuance of care, Re-evaluation by your physician. Problem is new. Symptoms have improved. jr8
--- NOTE | 2017-07-29 16:59 | ER ---
Nurse's Notes [facility] Name: Ely Coley Age: 72 yrs Sex: Male : 1945 Arrival Date: 07/29/2017 Time: 14:19 Bed 26 Private MD: Jean Carlos Velásquez E Diagnosis: Edema, unspecified Presentation: 07/29 14:21 Presenting complaint: Patient states: Right Leg swelling that started a week ago, the sg swelling just wont go away. Now its leaking some fluid from it on the front near my enriquez, Rose Marie been taking my water pill everyday like im supposed to but the fluid just stays on it all the time. Transition of care: patient was not received from another setting of care. Onset of symptoms was July 21, 2017. Risk Assessment: Do you want to hurt yourself or someone else? Patient reports no desire to harm self or others. Initial Sepsis Screen: Does the patient meet any 2 criteria? No. Patient's initial sepsis screen is negative. Does the patient have a suspected source of infection? No. Patient's initial sepsis screen is negative. Care prior to arrival: None. 14:21 Method Of Arrival: Ambulatory sg 14:21 Acuity: MITCH 3 sg Historical: - Allergies: 14:20 steroids; sg - PMHx: 14:20 Atrial Fib; CVA; Diabetes - NIDDM; sg - PSHx: 14:20 pace maker; sg - Immunization history:: Adult Immunizations up to date. - Social history:: Smoking status: Patient/guardian denies using tobacco. - Ebola Screening: : Patient negative for fever greater than or equal to 101.5 degrees Fahrenheit, and additional compatible Ebola Virus Disease symptoms Patient denies exposure to infectious person Patient denies travel to an Ebola-affected area in the 21 days before illness onset No symptoms or risks identified at this time. Screenin:52 Abuse screen: Denies threats or abuse. Nutritional screening: No deficits noted. mb3 Tuberculosis screening: No symptoms or risk factors identified. Fall Risk No fall in past 12 months (0 pts). Secondary diagnosis (15 points) No IV (0 pts). Ambulatory Aid- Crutches/Cane/Walker (15 pts). Gait- Normal/Bed Rest/Wheelchair (0 pts) Mental Status- Oriented to own ability (0 pts). Total Sweeney Fall Scale indicates Low Risk Score (25-44 pts). Fall prevention measures have been instituted. Placed close to Nursing Station Frequent Obs/Assesments occuring Family Present and informed to notify staff if they need to leave bedside As available Patient and Family Educated on Fall Prevention Program and strategies. Assessment: 16:50 General: Appears distressed, uncomfortable, obese, Behavior is calm, cooperative, mb3 appropriate for age. Pain: Complains of pain in right leg and left leg. Neuro: No deficits noted. Level of Consciousness is awake, alert, obeys commands, Oriented to person, place, time, situation, Appropriate for age. Cardiovascular: Reports None Heart tones S1 S2 present Capillary refill < 3 seconds Patient's skin is warm and dry. Cardiovascular: Edema is 3+ to left knee, left midcalf, left ankle, left foot, right knee, right midcalf, right ankle and right foot pitting to left knee, left midcalf, left ankle, left foot, right knee, right midcalf, right ankle and right foot. Respiratory: Airway is patent Respiratory effort is even, unlabored, Respiratory pattern is regular, symmetrical. GI: No deficits noted. No signs and/or symptoms were reported involving the gastrointestinal system. : No deficits noted. No signs and/or symptoms were reported regarding the genitourinary system. Derm: Vital Signs: 14:22 Pulse 67; Resp 16; Temp 97.6; Pulse Ox 97% ; Weight 108.86 kg; Height 6 ft. 0 in. sg (182.88 cm); Pain 0/10; 14:24 BP 156 / 66; sg 16:50 BP 160 / 59; Pulse 59; Resp 18; Pulse Ox 98% on R/A; mb3 14:22 Body Mass Index 32.55 (108.86 kg, 182.88 cm) ED Course: 14:19 Patient arrived in ED. sb2 14:19 Jean Carlos Velásquez MD is Private Physician. sb2 14:20 Arm band placed on. EKG completed in triage. Results shown to MD. sg 14:22 Triage completed. sg 14:27 Diomedes Negro PA is PHCP. jr8 14:27 Jerome Morales MD is Attending Physician. jr8 15:19 Umer Rankin, UJDSON is Primary Nurse. mb3 15:31 US Extremity Venous W Compression Kennedy In Process Unspecified. EDMS 15:55 Missed attempt(s): 24 gauge in left forearm. Bleeding controlled, band aid applied, kr2 catheter tip intact. 16:00 Inserted saline lock: 24 gauge in left antecubital area, using aseptic technique. Blood kr2 collected. 16:53 No provider procedures requiring assistance completed. mb3 17:15 IV discontinued, intact, bleeding controlled, No redness/swelling at site. Pressure mb3 dressing applied. 17:41 Patient has correct armband on for positive identification. mb3 Administered Medications: 16:05 Drug: Lasix 60 mg Route: IVP; Site: left antecubital; kr2 17:42 Follow up: Response: No adverse reaction mb3 Outcome: 16:58 Discharge ordered by . marta 17:15 Discharged to home ambulatory. mb3 17:15 Condition: stable 17:15 Discharge instructions given to patient, Instructed on discharge instructions, follow up and referral plans. medication usage, Demonstrated understanding of instructions, follow-up care, medications, Prescriptions given X 1. 17:41 Patient left the ED. mb3 Signatures: Dispatcher [employer] EDMS Moo Ugalde, RN RN Diomedes Stout PA PA jr8 Arlen Sanon, RN RN kr2 Jody Garvin2 Umer Rankin, RN RN mb3
[2017-07-29 17:46] VITALS: TEMP 97.6
[2017-07-29 17:48] VITALS: BP 160/59; O2SAT 98
== END 2017-07-29 17:41 | disposition home or self-care (01) ==
LOC: ER 14:16
DX: R60.9 Edema, unspecified (principal); Z88.8 Allergy status to other drugs, medicaments and biological substances; I48.91 Unspecified atrial fibrillation; E11.9 Type 2 diabetes mellitus without complications; Z95.0 Presence of cardiac pacemaker; Z86.73 Personal history of transient ischemic attack (TIA), and cerebral infarction without residual deficits
CPT/HCPCS: 36415; 80048; 85025; 93970; 96374; 99284

== ENCOUNTER 2017-10-18 21:20 | Inpatient (IN) | payer OTHER ==
--- OUTSIDE RECORDS SUMMARY | 2017-10-18 21:22 | XMS REPORT | Clinical Summary ---
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 Atrial fibrillation ([facility]) 01/30/2017 DARRELL (acute kidney injury) ([facility]) 01/30/2017 Pneumonia 01/29/2017 Encounters Date Type Specialty Care Team Description 02/04/2017 Procedure Pass 02/04/2017 Surgery Mandi Álvarez MD 01/30/2017 Orders Only General Internal Medicine 01/29/2017 - Hospital Encounter Cardiology Anabella, Pericardial 02/08/2017 MD Ameya effusion;Pneumonia America Wang, due to infectious MD organism, Nicole, unspecified liane Calvin MD unspecified part of [place], lung;Shortness of EstephaniaMD ajith breath;History of myocarditis;DARRELL (acute kidney injury) ([facility]);Permanent atrial fibrillation ([facility]);Type 2 diabetes mellitus with complication, without long-term current use of insulin ([facility]) after 10/17/2016 Family History Medical History Relation Name Comments [...] Taken Blood Pressure 111/64 02/08/2017 11:41 AM HOT METAL MIXER 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 Pulse 77 02/08/2017 11:41 AM HOT METAL MIXER OPERATOR Temperature 36.3 C (97.4 F) 02/08/2017 11:41 AM HOT METAL MIXER OPERATOR Respiratory Rate 16 02/08/2017 11:41 AM HOT METAL MIXER OPERATOR Oxygen Saturation 96% 02/08/2017 11:41 AM HOT METAL MIXER OPERATOR Inhaled Oxygen Concentration - - Weight 101.7 kg (224 lb 1.6 oz) 02/08/2017 1:00 AM HOT METAL MIXER OPERATOR Height 188 cm (6' 2") 01/29/2017 10:54 PM HOT METAL MIXER OPERATOR Body Mass Index 28.77 02/08/2017 1:00 AM HOT METAL MIXER OPERATOR Plan of Treatment Not on file Procedures Procedure Name Priority Date/Time Associated Diagnosis Comments R CATH 02/04/2017 10:16 AM HOT METAL MIXER OPERATOR PULMONARY HTN Case Notes PT IS IP after 10/17/2016 Results RHYTHM STRIP - SCAN (03/02/2017 8:04 AM)Only the most recent of2 resultswithin the time period is included.POC-Glucose meter (02/08/2017 1:16 PM)Only the most recent of41 resultswithin the time period is included. Component Value Ref Range POC-Glucose Meter 270 (H)Comment: TESTED AT [address] 70 - 110 mg/[place] [address] Specimen Performing Laboratory Blood [facility] [address] [address] CBC with platelet count + automated diff [...] % Specimen Performing Laboratory Blood - Arm, [address] [address] CBC with platelet count + automated diff (02/08/2017 5:57 AM)Only the most recent of10 resultswithin the time period is included. Specimen Performing Laboratory Blood Narrative The following orders were created for panel order CBC with platelet count + automated diff. Procedure Abnormality Status --------- ------ CBC with platelet count ...[[id number]]AbnormalFinal result Please view results for these tests on the individual orders. Magnesium (02/08/2017 5:57 AM)Only the most recent of10 resultswithin the time period is included. Component Value Ref Range Magnesium 1.5 (L) 1.6 - 2.6 mg/dL Specimen Performing Laboratory Blood - Arm, [address] [address] Basic metabolic panel (02/08/2017 5:57 AM)Only the [...] Specimen Performing Laboratory Blood - Arm, Left [address] [address] CARDIAC CATH REPORT - SCAN (02/07/2017 5:00 [...] RBC Morphology Normal Specimen Performing Laboratory Blood [address] [address] XR chest 1 view portable / bedside [...] MD Report Verified Date/Time:02/05/2017 14:44:20 Reading Location: [address] Consult Reading Room Procedure Note Interface, External Ris In - 02/05/2017 2:46 PM HOT METAL MIXER OPERATOR FINAL REPORT CLINICAL HISTORY: shortness of breath s/p RHC TECHNIQUE: 1 view of the chest. COMPARISON: 01/31/2017 IMPRESSION: Trace bilateral pleural effusions are again seen with left basilar atelectasis. The cardiomediastinal silhouette is magnified by technique with a pacemaker. Signed: Barbara Pizarro MD Report Verified Date/Time: 02/05/2017 14:44:20 Reading Location: [address] Consult Reading Room Urinalysis w/Microscopic + Reflex to Culture (02/03/2017 10:04 AM) Component Value Ref Range Color, UA Yellow Clarity, UA Clear Specific Man, UA 1.016 1.001 - 1.035 pH, UA [...] Performing Laboratory Urine - Urine, Clean Catch [address] [address] Protein, random urine (02/03/2017 10:04 AM) Component Value Ref Range Protein, Urine 19 (H) 0 - 14 mg/dL Specimen Performing Laboratory Urine - Urine, Clean Catch [address] [address] Creatinine, random urine (02/03/2017 10:04 AM)Only the most recent of2 resultswithin the time period is included. Component Value Ref Range Creatinine, Ur 127.3 mg/dL Specimen Performing Laboratory Urine - Urine, Clean Catch [address] [address] Narrative Reference Range: No Normals B-type Natriuretic Factor (BNP) (02/03/2017 4:28 AM) Component Value Ref Range BNP 315 (H) 0 - 100 pg/mL Specimen Performing Laboratory Blood - Arm, Left [facility] [address] [place] [address], [place] [address] CT chest without IV contrast (02/02/2017 10:50 [...] MD Report Verified Date/Time:02/02/2017 11:27:58 Reading Location: [address] Ortho Consult Reading Room Procedure Note Interface, External Ris In - 02/02/2017 11:30 AM HOT METAL MIXER OPERATOR FINAL REPORT Chest CT without contrast Reason [...] Report Verified Date/Time: 02/02/2017 11:27:58 Reading Location: [facility] C013 Ortho Consult Reading Room chest 2 views (01/31/2017 3:37 PM) Specimen Performing Laboratory [employer] RIS Narrative FINAL REPORT HISTORY : dyspnea. [...] MD Report Verified Date/Time:01/31/2017 15:44:13 Reading Location: [facility] B1 C013X Ortho Consult Reading Room Procedure Note Interface, External Ris In - 01/31/2017 3:46 PM HOT METAL MIXER OPERATOR FINAL REPORT HISTORY : dyspnea. Comparison: 01/30/2017 [...] Report Verified Date/Time: 01/31/2017 15:44:13 Reading Location: [address] Ortho Consult Reading Room CARDIOGRAM REPORT [...] MD Report Verified Date/Time:01/30/2017 22:23:06 Reading Location: [facility] C013 Ortho Consult Reading Room Procedure Note Interface, External Ris In - 01/30/2017 10:25 PM HOT METAL MIXER OPERATOR FINAL REPORT U/S, RENAL, COMPLETE CLINICAL INDICATION: [...] Report Verified Date/Time: 01/30/2017 22:23:06 Reading Location: [facility] C013X Ortho Consult Reading Room 2D Echo W/Doppler(CW/PW/Color) (01/30/2017 8:33 PM) Component Value Ref Range Ejection Fraction Specimen Performing Laboratory [facility] Narrative Transthoracic Echocardiography Report (TTE) Demographics Patient Name ELY COLEY Date of Study 2016 [id number] GenderMale Visit Number [id number] Race[id number] Number 1419 Number Date of Birth1945 Referring Physician Nicole Streeter Age71 year(s) Input Output Clerk Joni Kirkpatrick MD Ferdinand Tineo MD Fellow [...] External Ris In - 01/31/2017 12:47 PM HOT METAL MIXER OPERATOR Transthoracic Echocardiography Report (TTE) Demographics Patient Name ELY COLEY Date of Study 01/30/2017 Gender Male Visit Number [id number] Race Unknown Room Number 1419 Number Date of 1945 Referring Physician Nicole Streeter Age 71 year(s) Input Output Clerk Joni Kirkpatrick RDCS Interpreting MD Ferdinand Dalton [...] Specimen Performing Laboratory Urine - Urine, Voided [address] [address] Narrative Reference Range: No Normals Legionella antigen, urine (01/30/2017 7:36 PM) Component Value Ref Range Legionella Urine Antigen Negative - see commentComment: Negative for L. pneumophila serogroup 1 antigen, suggesting no recent or current infection with this serogroup. Legionellosis cannot be ruled out since other serogroups and species may cause disease. Specimen Performing Laboratory Urine - Urine, Voided [address] [address] Sodium, random urine (01/30/2017 7:36 PM) Component Value Ref Range Sodium Urine <20 meq/L Specimen Performing Laboratory Urine - Urine, Voided [address] [address] Narrative Reference Range: No Normals Urinalysis w/Microscopic (01/30/2017 7:36 PM) Component Value Ref Range Color, UA Yellow Clarity, UA Hazy Specific Man, UA 1.013 1.001 - 1.035 pH, UA [...] Specimen Performing Laboratory Urine - Urine, Voided [address] [address] Eosinophil smear (01/30/2017 7:36 PM) Component Value Ref Range Eosinophil Smear No EOS seen No EOS seen Specimen Performing Laboratory Urine - Urine, Voided [address] [address] Strep pneumoniae antigen (01/30/2017 3:00 PM) Component Value Ref Range Strep pneumoniae Antigen Presumptive negative for Presumptive negative for pneumococcal pneumonia - see pneumococcal pneumonia - see comment comment, Presumptive negative for pneumococcal meningitis - see comment Specimen Performing Laboratory Urine - Urine, Unspecified Source [address] [address] Narrative Presumptive negative for pneumococcal pneumonia, suggesting no current or recent pneumococcal infection. Infection due to S. pneumoniae cannot be ruled out since the antigen present in the sample may be below the detection limit of the test. Troponin I (01/30/2017 10:30 AM) Component Value Ref Range Troponin I 0.02 0.00 - 0.03 ng/mL Specimen Performing Laboratory Blood - Arm, Left [address] [address] Narrative Troponin I (TnI) levels must be [...] Performing Laboratory Nasal - Nasopharyngeal Swab [facility] [address] These assays were performed by real-time RT-PCR (peritoneal dialysis registered nurse-PCR) utilizing fluorogenic hydrolysis probe technology for the detection of human Influenza A viruses and the differential detection of novel H1N1 Influenza virus in respiratory specimens. The test is composed of (1) an RNA extraction from patient specimen, and (2) peritoneal dialysis registered nurse- PCR amplification and detection with human Influenza A and novel [id number] primers and probes. A well-conserved region of [...] and its performance characteristics determined by the [facility] Pathology Department, Section of Molecular Pathology.It has not been cleared or approved by the U.S. Food and Drug Administration (FDA).Since FDA approval is not required for clinical use of the test, validation was done as required by The Clinical Laboratory Amendments of 1988. These assays were performed by real-time RT-PCR (peritoneal dialysis registered nurse-PCR) utilizing fluorogenic hydrolysis probe technology for the detection of human Influenza A viruses and the differential detection of novel H1N1 Influenza virus in respiratory specimens. The test is composed of (1) an RNA extraction from patient specimen, and (2) peritoneal dialysis registered nurse- PCR amplification and detection with human Influenza A and novel [id number] primers and probes. A well-conserved region of [...] and its performance characteristics determined by the [facility] Pathology Department, Section of Molecular Pathology.It has [...] Specimen Performing Laboratory Nasal - Nasopharyngeal Swab [address] [address] Hemoglobin A1c (01/30/2017 1:49 AM) Component Value Ref Range Hemoglobin A1C 10.7 (H) 4.3 - 6.1 % Specimen Performing Laboratory Blood - Arm, Left [address] [address] ECG 12 lead (01/30/2017 1:13 AM) Specimen Performing Laboratory GE MUSE Narrative Ventricular Rate 93 BPM Atrial Rate 94 BPM QRS Duration 100 ms Q-T Interval 368 ms QTC Calculation(Bazett) 457 ms R [place] 13 degrees T [place] [address] & T wave abnormality, consider inferior ischemia ST & T wave abnormality, consider anterolateral ischemia Abnormal ECG No previous ECGs available Confirmed by MD OVIEDO JOSEPH P ([id number]) on 01/31/2017 2:18:43 PM Procedure Note Interface, External Ris In - 01/31/2017 2:18 PM HOT METAL MIXER OPERATOR Ventricular Rate 93 BPM Atrial Rate 94 BPM QRS Duration 100 ms Q-T Interval 368 ms QTC Calculation(Bazett) 457 ms R [place] 13 degrees T [place] [address] & T wave abnormality, consider inferior ischemia ST & T wave abnormality, consider anterolateral ischemia Abnormal ECG No previous ECGs available Confirmed by MD OVIEDO JOSEPH P ([id number]) on 01/31/2017 2:18:43 PM after 10/17/2016
--- OUTSIDE RECORDS SUMMARY | 2017-10-18 21:23 | XMS REPORT | Continuity of Care Document ---
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 Problem 09/15/2016 [facility] fibrillation [facility] Chest pain Resolved Problem 09/15/2016 [facility] CHF (<span Resolved Problem 09/15/2016 [facility] ID="[id number] [facility] 9">Confirmed</s Center nieto>) CVA (<span Resolved Problem 09/15/2016 [facility] ID="[id number] [facility] 9">Confirmed</s Center nieto>) Dizziness Resolved Problem 09/15/2016 [facility] DM - Diabetes Active Problem 09/15/2016 mellitus [facility] Edema Resolved Problem 09/15/2016 [facility] Syncope Resolved Problem 09/15/2016 [facility] Bradycardia Resolved Problem 09/15/2016 [facility] Hypertension Active Problem 09/15/2016 [facility] Medications Medication Details Route Status Patient Ordering Order Source Instructions Provider Date Diltiazem 60 mg, No Longer [facility] Route: PO, Active 2017 Medical Drug form: Center TAB, Daily, Dosing Weight 116.364, kg, Start date: 09/13/16 9:00:00 CDT, Duration: 30 day, Stop date: 10/12/16 9:00:00 CDT metoprolol tartrate 50 mg, 1 Inactive 09/13[facility] tab, Route: 2017 Medical PO, Drug Center form: TAB, Q12H, Dosing Weight 116.364, kg, Start date: 09/12/16 21:00:00 CDT, Duration: 30 day, Stop date: 10/12/16 9:00:00 CDTNotes: (Same as: Lopressor) Insulin regular 4 unit, 0.04 Inactive [facility] mL, Route: 2016 Medical SUB-Q, Drug Center form: SOLN, ONCE, Dosing Weight 116.364, kg, Start date: 09/12/16 14:37:00 CDT, Stop date: 09/12/16 14:37:00 CDTNotes: (Same as: Humulin R) Roll in palms of hands gently; Do not shake vigorously. "single patient use only" (Restricted to patients requiring a dose > 60 units) WASTE: F/P - Black; E - Municipal Trash Bin Stable for 28 days at room temperature Expires in days from __Date Acetaminophen 300 MG 1 tab, PO, Active [facility] / Codeine Phosphate Q4H, PRN 2017 Medical 30 MG Oral Tablet Pain Score Center 4-6, 0 Refill(s) Dextrose 50% Syringe 25 gm, 50 Inactive [facility] mL, Route: 2016 Medical IVP, Drug Center Form: INJ, Dosing Weight 116.364, kg, PRN, PRN Blood Glucose Results, Start date: 09/12/16 11:50:00 CDT, Duration: 30 day, Stop date: 10/12/16 11:49:00 CDT Glucagon 1 mg, Route: Inactive [facility] IM, Drug 2016 Medical form: Center PDR/INJ, PRN, Dosing Weight 116.364, kg, PRN Blood Glucose Results, Start date: 09/12/16 11:50:00 CDT, Duration: 30 day, Stop date: 10/12/16 11:49:00 CDT valsartan 320 mg, 2 Inactive [facility] tab, Route: 2017 Medical PO, Drug Center form: TAB, Daily, Dosing Weight 116.364, kg, Start date: 09/12/16 9:00:00 CDT, Duration: 30 day, Stop date: 10/11/16 9:00:00 CDTNotes: Same as Diovan Cefazolin 1 gm, Route: No Longer [facility] IVPB, Drug Active 2016 Medical form: Center PDR/INJ, ABXQ8H, Dosing Weight 116.364, kg, Start date: 09/11/16 23:00:00 CDT, Duration: 2 doses or times, Stop date: 09/12/16 7:00:00 CDT, ABX Indication: Surgical ProphylaxisN otes: (Same As: Alida Kennedy) MEDICATION WASTE Product Size: 1000 mg Product Wasted: _0_ mg Calcium Gluconate 3 gm, 30 mL, No Longer [place] Route: IVPB, Active 2016 Medical PRN, Dosing Center Weight 116.364, kg, PRN Abnormal Lab Result, For NON-ICU Patients Only., Start date: 09/11/16 22:33:00 CDT, Duration: 30 day, Stop date: 10/11/16 22:32:00 CDTNotes: WASTE: F/P - Sink; E - Municipal Trash Bin Magnesium Oxide 800 mg, 2 No Longer [place] tab, Route: Active 2016 Medical PO, Drug Center form: TAB, PRN, Dosing Weight 116.364, kg, PRN Abnormal Lab Result, For NON-ICU Patients Only., Start date: 09/11/16 22:33:00 CDT, Duration: 30 day, Stop date: 10/11/16 22:32:00 CDTNotes: (Same as: Mag-Ox 400) Magnesium oxide [id number] elemental magnesium Dose=____mg magnesium oxide (___mg elemental magnesium) Magnesium Sulfate 2 gm, 50 mL, No Longer [place] Route: IVPB, Active 2016 Medical Drug form: Center INJ, PRN, Dosing Weight 116.364, kg, PRN Abnormal Lab Result, For NON-ICU Patients Only., Start date: 09/11/16 22:33:00 CDT, Duration: 30 day, Stop date: 10/11/16 22:32:00 CDTNotes: WASTE: F/P - Sink; E - Municipal Trash Bin sodium phosphate 15 mmol, 5 No Longer [place] mL, Route: Active 2016 Medical IVPB, PRN, Center Dosing Weight 116.364, kg, PRN Abnormal Lab Result, For NON-ICU Patients Only., Start date: 09/11/16 22:33:00 CDT, Duration: 30 day, Stop date: 10/11/16 22:32:00 CDT Potassium Chloride 10 mEq, 50 No Longer [place] mL, Route: Active 2016 Medical IVPB, Drug Center form: INJ, PRN, Dosing Weight 116.364, kg, PRN Abnormal Lab Result, For NON-ICU Patients Only, Start date: 09/11/16 22:33:00 CDT, Duration: 30 day, Stop date: 10/11/16 22:32:00 CDTNotes: (Same as: KCL) Infuse over 2 hours. potassium 2 pkt, No Longer [place] phosphate-sodium Route: PO, Active 2016 Medical phosphate 250 mg-280 Drug Form: [place] mg-160 mg oral PDR/REC, powder for Dosing reconstitution Weight 116.364, kg, PRN, PRN Abnormal Lab Result, For NON-ICU Patients Only, Start date: 09/11/16 22:33:00 CDT, Duration: 30 day, Stop date: 10/11/16 22:32:00 CDTNotes: (Same as: Phos-NaK) Each 1.5 gm pkt has 250mg phosphorous. Mix w/2.5oz water and stir. potassium phosphate 15 mmol, 5 No Longer [facility] mL, Route: Active 2016 [facility] IVPB, PRN, [place] Dosing Weight 116.364, kg, PRN Abnormal Lab Result, For NON-ICU Patients Only., Start date: 09/11/16 22:33:00 CDT, Duration: 30 day, Stop date: 10/11/16 22:32:00 CDTNotes: (Same as: K Phosphate.) 1 mMol phoshate has 1.47 mEq potassium Infuse over 4 hours Magnesium Sulfate 2 gm, 50 mL, No Longer [facility] Route: IVPB, Active 2016 Medical Drug form: [place] INJ, ONCE, Dosing Weight 116.364, kg, Total dose=2 gm, Start date: 09/11/16 22:22:00 CDT, Duration: 1 doses or times, Stop date: 09/11/16 22:22:00 CDTNotes: WASTE: F/P - Sink; E - Municipal Trash Bin Magnesium Sulfate 2 gm, 50 mL, Inactive [place] Route: IVPB2016 Medical Drug form: [place] INJ, ONCE, Dosing Weight 116.364, kg, Total dose=2 gm, Start date: 09/11/16 22:21:00 CDT, Duration: 1 doses or times, Stop date: 09/11/16 22:21:00 CDTNotes: WASTE: F/P - Sink; E - Municipal Trash Bin Potassium Chloride 40 mEq, 2 Inactive [facility] tab, Route: 2017 Medical PO, Drug Center form: ERTAB, ONCE, Dosing Weight 116.364, kg, Start date: 09/11/16 22:21:00 CDT, Stop date: 09/11/16 22:21:00 CDTNotes: (Same as: K-Dur 20) "Do Not Crush" With food and full glass of water Pradaxa 150 mg, 1 No Longer [facility] cap, Route: Active 2016 Medical PO, Drug Center form: CAP, Q12H, Dosing Weight 116.364, kg, Start date: 09/11/16 21:00:00 CDT, Duration: 30 day, Stop date: 10/11/16 9:00:00 CDTNotes: DO NOT break, chew or open capsules for administrati on. metoprolol tartrate 25 mg, Inactive [facility] Route: PO, 2016 Medical Drug form: Center TAB, Q12H, Dosing Weight 116.364, kg, Start date: 09/11/16 21:00:00 CDT, Duration: 30 day, Stop date: 10/11/16 9:00:00 CDT Lasix 20 mg, Inactive [facility] Route: IVP, 2016 Medical Drug form: [place] INJ, ONCE, Dosing Weight 116.364, kg, Start date: 09/11/16 18:38:00 CDT, Stop date: 09/11/16 18:38:00 CDT Diltiazem 125 mg, 25 No Longer [facility] mL, Rate: Active 2016 [facility] Titrate, [place] Start Dose: 2 mg/hr, Titration: none keep at 2mg/hr, Goal(s): Maintain HR Notes: (Same as: Cardizem) tramadol 50 mg, PO, No Longer [place] hydrochloride 50 MG Q4H, PRN Active 2016 Medical Oral Tablet Pain Score [place] 1-3, # 10 tab, 0 Refill(s) tramadol 50 mg, 1 No Longer [place] hydrochloride 50 MG tab, Route: Active 2017 Medical Oral Tablet PO, Drug Center form: TAB, Q4H, Dosing Weight 116.364, kg, PRN Pain Score 1-3, Start date: 09/11/16 17:31:00 CDT, Duration: 30 day, Stop date: 10/11/16 17:30:00 CDTNotes: Not to exceed 400mg/day. (Same As: Ultram) metoprolol tartrate 25 mg, PO, Active [place] 25 mg oral tablet Q12H, # 60 2017 Medical tab, 1 Center Refill(s) metoprolol tartrate 25 mg, 1 No Longer [place] tab, Route: Active 2016 Medical PO, Drug Center form: TAB, Q12H, Dosing Weight 116.364, kg, Start date: 09/11/16 17:15:00 CDT, Duration: 30 day, Stop date: 10/11/16 9:00:00 CDTNotes: (Same as: Lopressor) Acetaminophen 300 MG 1 tab, PO, No Longer [place] / Codeine Phosphate Q4H, PRN Active 2016 Medical 15 MG Oral Tablet Pain Score Center 4-6, # 12 tab, 0 Refill(s) cephalexin 500 mg 500 mg=1 Active [place] oral capsule cap, PO, 2017 Medical TID, # 15 Center cap, 0 Refill(s) acetaminophen-codein 1 tab, No Longer [place] e #3 Route: PO, Active 2016 Medical Drug Form: Center TAB, Dosing Weight 116.364, kg, Q4H, PRN Pain Score 4-6, Start date: 09/11/16 16:59:00 CDT, Duration: 30 day, Stop date: 10/11/16 16:58:00 CDTNotes: Do not exceed 4gm/day of acetaminophe n. (Same as: Tylenol with Codeine # 3) dabigatran etexilate 150 mg=1 On Hold [place] 150 MG Oral Capsule cap, PO, 2017 Medical [Pradaxa] Q12H, # 180 Center cap, 3 Refill(s) Metformin 850 mg, PO, Active [place] QAM, 0 2017 Medical Refill(s) Center valsartan 320 mg 320 mg=1 Active [place] oral tablet tab, PO, 2017 Medical Daily, # 90 Center tab, 0 Refill(s) Glipizide 10 MG Oral 10 mg=1 tab, Active [place] Tablet PO, 2017 Medical BID-Before [place] Meals, # 180 tab, 1 Refill(s) sodium chloride 0.9% 1,000 mL, No Longer [place] 1000 ml INJ 1,000 mL Rate: 50 Active 2016 Medical ml/hr, [place] Infuse over: 20 hr, Route: IV, Dosing Weight 116.364 kg, Total Volume: 1,000, Start date: 09/11/16 11:04:00 CDT, Duration: 30 day, Stop date: 10/11/16 11:03:00 CDT Phenylephrine 1 drp, Inactive Hydrochloride 25 Route: 2014 [place] [facility]/ML Ophthalmic Operative Solution [Mydfrin] Eye, Q5Min, Drug form: SOLN, Start date: 03/06/14 11:05:00, Duration: 3 doses or times, Stop date: 03/06/14 11:15:00 Cyclopentolate 1 drp, Inactive hydrochloride 10 Route: 2014 [place] MG/ML Ophthalmic Operative Solution [Cyclogyl] Eye, Q5Min, Drug form: SOLN, Start date: 03/06/14 11:05:00, Duration: 3 doses or times, Stop date: 03/06/14 11:15:00Note s: (Same As: Cyclogyl) Tropicamide 10 MG/ML 1 drp, Inactive Ophthalmic Solution Route: 2014 [facility] [Mydriacyl] Operative Eye, Q5Min, Drug form: SOLN, Start date: 03/06/14 11:05:00, Duration: 3 doses or times, Stop date: 03/06/14 11:15:00Note s: (Same As: Mydriacyl, Opticyl, Tropicacyl) canagliflozin 100 MG 100 mg=1 Active Oral Tablet tab, PO, 2014 [facility] [Invokana] Daily, 0 Refill(s) lisinopril 20 mg 20 mg=1 tab, Active oral tablet PO, Daily, 0 2014 [facility] Refill(s) glyBURIDE 5 mg oral 10 mg=2 tab, Active tablet PO, BID, 0 2014 [facility] Refill(s) Aspirin Low Dose 81 PO, Daily, 0 Active mg oral tablet Refill(s) 2014 [facility] Hydrochlorothiazide 1 tab, PO, Active 50 MG / Triamterene Daily, # 30 2014 [facility] 75 MG Oral Tablet tab, 0 Refill(s) Allergies, Adverse Reactions, Alerts Substance Category Reaction Severity Reaction Status Date Comments Source type Reported NKDA Assertion Drug Active [facility] NKFA Assertion Drug Active [facility] Immunizations Immunization Date Given Site Status Last Updated Comments Source Results Order Name Results Value Reference Date Interpretation Comments Source Range Chest 2 Chest 2 EXAM: XR CHEST 2 VIEWS 09/12 [facility] DX views [facility] DATE: 09/12/2016 3:00 AM CDT Read by: Sandra Marquez MD Dictated Date/time: 09/12/16 11:17 Electronically Signed by: Sandra Marquez MD 09/12/16 14:25 FINAL REPORT INDICATION: Line Placement - Status post PPM/ICD Implantation FINDINGS: PA and lateral views of the chest are compared to yesterday evening. The cardiomediastinal silhouette is stable. A bipolar left subclavian pacemaker has tips over the right atrium and right ventricle, stable. Platelike atelectasis is seen in the bilateral lower lobes. There are tiny bilateral pleural effusions. IMPRESSION: 1. Stable positioning of the bipolar left subclavian pacemaker. 2. Bilateral lower lobe platelike atelectasis. 3. Tiny bilateral pleural effusions. CHEM PANEL Phosphorus 3.1 mg/dL 2.5 - 4.5 09/12 [facility] CHEM PANEL Magnesium 2.6 mg/dL 1.8 - 2.4 09/12 [facility] ELECTROLYT AGAP 11.1 meq/L 10.0 - 09/12 [facility] 20.0 [facility] ELECTROLYT Potassium 4.1 meq/L 3.5 - 5.1 09/12 [facility] ELECTROLYT Chloride Lvl 105 meq/L 95 - 109 09/12 [facility] ELECTROLYT CO2 25 meq/L 24 - 32 09/12 [facility] ELECTROLYT eGFR 74 09/12 Result Comment: The eGFR is calculated using the CKD-EPI formula. In most young, healthy individuals the eGFR will be >90 mL/ min/1.73m2. The eGFR declines with age. An eGFR of 60-89 may be normal in [facility] mL/min/1. some populations, particularly the elderly, for whom the CKD-EPI formula has not been extensively validated. Use of the eGFR is not recommended in the following populations: [address] Individuals with unstable creatinine concentrations, including patients and those with serious co-morbid conditions. Patients with extremes in muscle mass or diet. The data above are obtained from the National Kidney Disease Education Program (NKDEP) which additionally recommends that when the eGFR is used in patients with extremes of body mass index for purposes of drug dosing, the eGFR should be multiplied by the estimated BMI. ELECTROLYT BUN 16 mg/dL 7 - 22 09/[address] ELECTROLYT Glucose Lvl 177 mg/dL 70 - 99 09/[address] ELECTROLYT Calcium Lvl 8.7 mg/dL 8.5 - 10.5 09/[address] ELECTROLYT Creatinine 1.00 mg/dL 0.50 - 09/12 [facility] Lvl 1. [facility] ELECTROLYT Sodium Lvl 137 meq/L 135 - 145 09/[address] HEMATOLOGY Plt Morph Normal 09/12 [facility] (09/12/16 5:03 AM) [place] HEMATOLOGY Bands 0.0 % 0.0 - 11.0 09/[address] HEMATOLOGY Atypical 0.0 % <=0.0 % 09/12 [facility] Lymphs [facility] HEMATOLOGY Monocytes 17.0 % 2.0 - 12.0 09/[address] HEMATOLOGY RBC Morph Normal 09/12 [facility] (09/12/16 5:03 AM) [place] HEMATOLOGY Eosinophils 1.0 % 0.0 - 4.0 09/[address] HEMATOLOGY Lymphocytes 27.0 % 20.0 - 09/12 [place] 40.0 /2016 [facility] HEMATOLOGY Segs-Bands # 4.8 K/CMM 1.5 - 8.1 09/[address] HEMATOLOGY Lymphocytes 2.3 K/CMM 1.0 - 5.5 09/12 [facility] HEMATOLOGY Segs 55.0 % 45.0 - 09/12 75.0 [facility] HEMATOLOGY Eosinophils 0.1 K/CMM 0.0 - 0.5 09/12 [facility] HEMATOLOGY Monocytes # 1.5 K/CMM 0.0 - 0.8 09/12 [facility] HEMATOLOGY MPV 7.7 fL 7.4 - 10.4 09/12 [facility] HEMATOLOGY MCH 29.8 pg 27.0 - 08 31.0 [facility] HEMATOLOGY MCV 88.2 fL 80.0 - 09/12 [place] 94.0 [facility] HEMATOLOGY Platelet 177 K/CMM 133 - 450 09/12 [facility] HEMATOLOGY RDW 14.7 % 11.5 - 08 14.5 [facility] HEMATOLOGY MCHC 33.8 g/dL 32.0 - 09/12 36.0 [facility] HEMATOLOGY RBC 3.97 M/CMM 4.70 - 09/12 6.10 [facility] HEMATOLOGY Hgb 11.8 g/dL 14.0 - 09/12 18.0 [facility] HEMATOLOGY WBC 8.7 K/CMM 3.7 - 10.4 09/12 [facility] HEMATOLOGY Hct 35.0 % 42.0 - 09/12 54.0 [facility] CHEM PANEL eGFR 68 09/11 Result Comment: The eGFR is calculated using the CKD-EPI formula. In most young, healthy individuals the eGFR will be >90 mL/ min/1.73m2. The eGFR declines with age. An eGFR of 60-89 may be normal in [facility] mL/min/1.7 some populations, particularly the elderly, for whom the CKD-EPI formula has not been extensively validated. Use of the eGFR is not recommended in the following populations: [address] Individuals with unstable creatinine concentrations, including patients and those with serious co-morbid conditions. Patients with extremes in muscle mass or diet. The data above are obtained from the National Kidney Disease Education Program (NKDEP) which additionally recommends that when the eGFR is used in patients with extremes of body mass index for purposes of drug dosing, the eGFR should be multiplied by the estimated BMI. CHEM PANEL AGAP 13.8 meq/L 10.0 - 09/11 [facility] 20.0 [facility] CHEM PANEL Calcium Lvl 9.0 mg/dL 8.5 - 10.5 09/11 [facility] CHEM PANEL CO2 26 meq/L 24 - 32 09/11 [facility] CHEM PANEL Chloride Lvl 104 meq/L 95 - 109 09/11 [facility] CHEM PANEL Potassium 3.8 meq/L 3.5 - 5.1 09/11 [facility] Lvl [facility] CHEM PANEL Sodium Lvl 140 meq/L 135 - 145 09/11 [facility] CHEM PANEL Creatinine 1.07 mg/dL 0.50 - 09/11 [facility] Lvl 1.40 [facility] CHEM PANEL BUN 13 mg/dL 7 - 22 09/11 [facility] CHEM PANEL Glucose Lvl 146 mg/dL 70 - 99 09/11 [facility] Chest 1 v Chest 1 v Chest one view, 09/11/2016 at 1752 hours 09/11 - [facility] - Medical Placement Placement DX Center DX HISTORY: 71-year-old man with line placement. Read by: Sandra Marquez MD Dictated Date/time: 09/11/16 18:26 Electronically Signed by: Sandra Marquez MD 09/11/16 18:26 FINAL REPORT FINDINGS: A single AP semierect view of the chest is submitted without a prior study for comparison. The cardiomediastinal silhouette is within normal size limits. A bipolar left subclavian pacemaker has tips over the right atrium and right ventricle. Platelike atelectasis is seen in the left lower lob e. The costophrenic sulci are sharp, without effusions. IMPRESSION: The tips of the bipolar left subclavian pacemaker overlie the right atrium and right ventricle. BLOOD BANK ABO/Rh O POS 09/11 [facility] RESULTS [facility] BLOOD BANK Antibody Negative 09/11 [facility] RESULTS [facility] (09/11/16 11:12 AM) Center CHEM PANEL Phosphorus 3.3 mg/dL 2.5 - 4.5 09/11 [facility] CHEM PANEL Magnesium 1.6 mg/dL 1.8 - 2.4 09/11 [facility] ELECTROLYT AGAP 9.7 meq/L 10.0 - 09/11 [facility] 20.0 [facility] ELECTROLYT eGFR 69 09/11 Result Comment: The eGFR is calculated using the CKD-EPI formula. In most young, healthy individuals the eGFR will be >90 mL/ min/1.73m2. The eGFR declines with age. An eGFR of 60-89 may be normal in [facility] mL/min/1.7 some populations, particularly the elderly, for whom the CKD-EPI formula has not been extensively validated. Use of the eGFR is not recommended in the following populations: [address] Individuals with unstable creatinine concentrations, including patients and those with serious co-morbid conditions. Patients with extremes in muscle mass or diet. The data above are obtained from the National Kidney Disease Education Program (NKDEP) which additionally recommends that when the eGFR is used in patients with extremes of body mass index for purposes of drug dosing, the eGFR should be multiplied by the estimated BMI. ELECTROLYT CO2 28 meq/L 24 - 32 09/11 [facility] ELECTROLYT Chloride Lvl 102 meq/L 95 - 109 09/11 [facility] ELECTROLYT Potassium 3.7 meq/L 3.5 - 5.1 09/11 [facility] ELECTROLYT Calcium Lvl 8.9 mg/dL 8.5 - 10.5 09/11 [facility] ELECTROLYT Sodium Lvl 136 meq/L 135 - 145 09/11 [facility] ELECTROLYT Creatinine 1.06 mg/dL 0.50 - 09/11 [facility] Lvl 1.40 [facility] ELECTROLYT BUN 15 mg/dL 7 - 22 09/11 [facility] ELECTROLYT Glucose Lvl 87 mg/dL 70 - 99 09/11 [facility] HEMATOLOGY Hct 33.1 % 42.0 - 09/11 [facility] 54.0 [facility] HEMATOLOGY Platelet 188 K/CMM 133 - 450 09/[address] HEMATOLOGY Hgb 11.0 g/dL 14.0 - 09/11 [facility] 18.0 [facility] HEMATOLOGY MPV 7.5 fL 7.4 - 10.4 09/11 [facility] HEMATOLOGY MCV 89.2 fL 80.0 - 09/11 94.0 [facility] HEMATOLOGY MCH 29.5 pg 27.0 - 09/11 31.0 [facility] HEMATOLOGY RBC 3.72 M/CMM 4.70 - 09/11 6.10 [facility] HEMATOLOGY RDW 14.7 % 11.5 - 09/11 14.5 [facility] HEMATOLOGY WBC 8.2 K/CMM 3.7 - 10.4 09/11 [facility] HEMATOLOGY MCHC 33.1 g/dL 32.0 - 09/11 36.0 [facility] HEMATOLOGY PT 16.6 s 12.0 - 09/11 14.7 [facility] HEMATOLOGY INR 1.32 0.85 - 09/11 1.17 [facility] HEMATOLOGY PTT 43.0 s 22.9 - 09/11 35.8 [facility] HEMATOLOGY Monocytes # 1.6 K/CMM 0.0 - 0.8 09/11 [facility] HEMATOLOGY Eosinophils 0.3 K/CMM 0.0 - 0.5 09/11 [facility] HEMATOLOGY Lymphocytes 1.7 K/CMM 1.0 - 5.5 09/11 [facility] HEMATOLOGY Basophils 0.5 % 0.0 - 1.0 09/11 [facility] HEMATOLOGY Segs-Bands # 4.5 K/CMM 1.5 - 8.1 09/11 [facility] HEMATOLOGY Eosinophils 3.4 % 0.0 - 4.0 09/11 [facility] HEMATOLOGY Segs 55.3 % 45.0 - 09/11 [place] 75.0 [facility] HEMATOLOGY Lymphocytes 21.2 % 20.0 - 09/11 [place] 40.0 [facility] HEMATOLOGY Monocytes 19.6 % 2.0 - 12.0 09/11 [facility] CHEM PANEL Calcium Lvl 9.4 mg/dL 8.5 - 10.5 03/05 [facility] CHEM PANEL CO2 26 meq/L 24 - 32 03/05 [facility] CHEM PANEL eGFR 40 03/05 1Result Comment: The eGFR is calculated using the CKD-EPI formula. In most young, healthy individuals the eGFR will be >90 mL/ min/1.73m2. The eGFR declines with age. An eGFR of 60-89 may be normal in mL/min/1.7 some populations, particularly the elderly, for whom the CKD-EPI formula has not been extensively validated. Use of the eGFR is not recommended in the following populations: [place] [address] Individuals with unstable creatinine concentrations, including patients and those with serious co-morbid conditions. Patients with extremes in muscle mass or diet. The data above are obtained from the National Kidney Disease Education Program (NKDEP) which additionally recommends that when the eGFR is used in patients with extremes of body mass index for purposes of drug dosing, the eGFR should be multiplied by the estimated BMI. CHEM PANEL BUN 45 mg/dL 7 - 22 03/05 [facility] CHEM PANEL Glucose Lvl 100 mg/dL 70 - 99 03/05 2Interpretive Data: Adult reference range values reflect the clinical guidelines of the [place] [employer]. [facility] CHEM PANEL Potassium 4.4 meq/L 3.5 - 5.1 03/05 [facility] CHEM PANEL Chloride Lvl 106 meq/L 95 - 109 03/05 [facility] CHEM PANEL Creatinine 1.7 mg/dL 0.5 - 1.4 03/05 [facility] CHEM PANEL Sodium Lvl 139 meq/L 135 - 145 03/05 [facility] CHEM PANEL AGAP 11.4 meq/L 10.0 - 03/05 MH 20.0 [facility] HEMATOLOGY MPV 7.3 fL 7.4 - 10.4 03/05 [facility] HEMATOLOGY MCHC 33.9 g/dL 32.0 - 03/05 MH 36.0 [facility] HEMATOLOGY Platelet 198 K/CMM 133 - 450 03/05 [facility] HEMATOLOGY Hgb 13.7 g/dL 14.0 - 03/05 MH 18.0 [facility] HEMATOLOGY RDW 14.6 % 11.5 - 03/05 MH 14. [facility] HEMATOLOGY Hct 40.4 % 42.0 - 03/05 MH 54.0 [facility] MCH 31.5 pg 27.0 - 03/05 MH 31.0 [facility] HEMATOLOGY MCV 92.8 fL 80.0 - 03/05 MH 94.0 [facility] HEMATOLOGY RBC 4.35 M/CMM 4.70 - 03/05 MH 6.10 /2014 [facility] HEMATOLOGY WBC 9.4 K/CMM 3.7 - 10.4 03/05 [facility] HEMATOLOGY Eosinophils 2.4 % 0.0 - 4.0 03/05 [facility] HEMATOLOGY Monocytes 14.6 % 2.0 - 12.0 03/05 [facility] HEMATOLOGY Segs-Bands # 5.5 K/CMM 1.5 - 8.1 03/05 [facility] HEMATOLOGY Lymphocytes 24.1 % 20.0 - 03/05 40.0 [facility] HEMATOLOGY Segs 58.6 % 45.0 - 03/05 75.0 [facility] HEMATOLOGY Basophils # 0.0 K/CMM 0.0 - 0.2 03/05 [facility] HEMATOLOGY Eosinophils 0.2 K/CMM 0.0 - 0.5 03/05 [facility] HEMATOLOGY Basophils 0.3 % 0.0 - 1.0 03/05 [facility] HEMATOLOGY Monocytes # 1.4 K/CMM 0.0 - 0.8 03/05 [facility] HEMATOLOGY Lymphocytes 2.3 K/CMM 1.0 - 5.5 03/05 [facility] Vital Signs Vital Sign Value Date Comments Source Temperature Oral (F) 97.9 F 09/12/2016 [facility] Respitory Rate 23 09/12/2016 [facility] Systolic (mm Hg) 143 09/12/2016 [facility] Diastolic (mm Hg) 68 09/12/2016 [facility] Respitory Rate 20 09/12/2016 [facility] Systolic (mm Hg) 148 09/12/2016 [facility] Diastolic (mm Hg) 73 09/12/2016 [facility] Respitory Rate 21 09/12/2016 [facility] Systolic (mm Hg) 129 09/12/2016 [facility] Diastolic (mm Hg) 61 09/12/2016 [facility] Temperature Oral (F) 97.9 F 09/12/2016 [facility] Temperature Oral (F) 97.6 F 09/12/2016 [facility] BMI Calculated 34.79 09/11/2016 [facility] Weight 116.364 09/11/2016 [facility] Height 182.88 cm 09/11/2016 [facility] Systolic (mm Hg) 100 03/06/2014 [facility] Diastolic (mm Hg) 55 03/06/2014 [facility] Respitory Rate 16 03/06/2014 [facility] Diastolic (mm Hg) 75 03/06/2014 [facility] Systolic (mm Hg) 100 03/06/2014 [facility] Respitory Rate 17 03/06/2014 [facility] Diastolic (mm Hg) 49 03/06/2014 [facility] Systolic (mm Hg) 101 03/06/2014 [facility] Respitory Rate 14 03/06/2014 [facility] Heart Rate 97 03/06/2014 [facility] Heart Rate 96 03/05/2014 [facility] BMI Calculated 38.83 03/05/2014 [facility] Weight 126.3 03/05/2014 [facility] Height 180.34 cm 03/05/2014 [facility] Encounters Location Location Encounter Encounter Reason Attending ADM DC Status Source Details Type Number For Provider Date Date Visit [facility] OBS Day [id number] Jean Carlos 03/06 03/06 [facility] /2014 [facility] Bedded [id number] Eddie 09/11 09/12 [facility] [place] /2016 [facility] Procedures Procedure Code Date Perfomer Comments Source Arthroplasty of [id number] tight [facility] knee<sup>1</sup> Procedure<sup>2</s [id number] 2right great [facility] up> toe ,i/2 amp 1976 Arthroplasty of [id number] 2013 tight [facility] knee<sup>1</sup> [facility] Procedure<sup>2</s [id number] right great [facility] up> toe ,i/2 amp [facility] 1976
--- OUTSIDE RECORDS SUMMARY | 2017-10-18 21:25 | XMS REPORT ---
:1945 Author Organization [facility] Address [address] [place] [address] [address] [place] [address] Care Team Providers Name Role Phone ABIEL [...] (BEAKER) (test 270 mg/dL 70-110 TESTED AT [address] qaqs=4294) [facility] [address] POCT-GLUCOSE [id number] 08:58:00 Test Item Value Reference Range Comments POC-GLUCOSE METER (BEAKER) 147 mg/dL 70-110 TESTED AT [address] (test lqib=3574) [facility] [address] CBC W/PLT COUNT & AUTO [id number] 08:53:00 Test Item Value Reference Range Comments WHITE BLOOD CELL COUNT (BEAKER) (test xzhh=160) 5.6 K/ L 3.5-10.5 RED BLOOD CELL COUNT (BEAKER) (test orwf=600) 4.28 M/ L 4.63-6.08 HEMOGLOBIN (BEAKER) (test vdaz=829) 11.7 GM/DL 13.7-17.5 HEMATOCRIT (BEAKER) (test mprb=657) 37.4 % 40.1-51.0 MEAN CORPUSCULAR VOLUME (BEAKER) (test hssm=836) 87.4 fL 79.0-92.2 MEAN CORPUSCULAR HEMOGLOBIN (BEAKER) (test 27.3 pg 25.7-32.2 xgac=035) MEAN CORPUSCULAR HEMOGLOBIN CONC (BEAKER) (test 31.3 GM/DL 32.3-36.5 bfal=486) RED CELL DISTRIBUTION WIDTH (BEAKER) (test 16.2 % 11.6-14.4 wunw=674) PLATELET COUNT (BEAKER) (test cfwa=628) 100 K/CU MM 150-450 MEAN PLATELET VOLUME (BEAKER) (test oons=784) 10.7 fL 9.4-12.4 NUCLEATED RED BLOOD CELLS (BEAKER) (test 0 /100 WBC 0-0 rllq=484) NEUTROPHILS RELATIVE PERCENT (BEAKER) (test 50 % xtcx=528) LYMPHOCYTES RELATIVE PERCENT (BEAKER) (test 30 % fhcp=319) MONOCYTES RELATIVE PERCENT (BEAKER) (test 18 % icog=386) EOSINOPHILS RELATIVE PERCENT (BEAKER) (test 2 % dwrl=803) BASOPHILS RELATIVE PERCENT (BEAKER) (test 1 % quhm=180) NEUTROPHILS ABSOLUTE COUNT (BEAKER) (test 2.77 K/ L 1.78-5.38 ssof=322) LYMPHOCYTES ABSOLUTE COUNT (BEAKER) (test 1.66 K/ L 1.32-3.57 cdrp=224) MONOCYTES ABSOLUTE COUNT (BEAKER) (test 1.02 K/ L 0.30-0.82 zfwm=400) EOSINOPHILS ABSOLUTE COUNT (BEAKER) (test 0.09 K/ L 0.04-0.54 gfiu=941) BASOPHILS ABSOLUTE COUNT (BEAKER) (test 0.03 K/ L 0.01-0.08 joyl=054) IMMATURE GRANULOCYTES-RELATIVE PERCENT (BEAKER) 0 % 0-1 (test drqm=6726) [id number] 08:05:00 Test Item Value Reference Range Comments MAGNESIUM (BEAKER) (test rxaj=290) 1.5 mg/dL 1.6-2.6 BASIC METABOLIC [id number] 08:05:00 Test Item Value Reference Range Comments SODIUM (BEAKER) (test 137 meq/L 136-145 gxwt=608) POTASSIUM (BEAKER) (test 3.3 meq/L 3.5-5.1 ypum=574) CHLORIDE (BEAKER) (test 98 meq/L 98-107 dbwq=271) CO2 (BEAKER) (test 27 meq/L 22-29 pwfr=764) BLOOD UREA NITROGEN 30 mg/dL 7-21 (BEAKER) (test envi=750) CREATININE (BEAKER) (test 1.59 mg/dL 0.57-1.25 lshl=266) GLUCOSE RANDOM (BEAKER) 116 mg/dL 70-105 (test mgfl=025) CALCIUM (BEAKER) (test 9.0 mg/dL 8.4-10.2 unee=844) EGFR (BEAKER) (test 43 mL/min/1.73 sq m ESTIMATED GFR IS NOT owov=5256) ACCURATE CREATININE CLEARANCE IN PREDICTING GLOMERULAR FILTRATION RATE. ESTIMATED GFR IS NOT APPLICABLE FOR DIALYSIS PATIENTS. POCT-GLUCOSE [id number] 21:57:00 Test Item Value Reference Range Comments POC-GLUCOSE METER (BEAKER) 219 mg/dL 70-110 TESTED AT [address] (test ldmp=3964) [facility] [address] POCT-GLUCOSE [id number] 17:24:00 Test Item Value Reference Range Comments POC-GLUCOSE METER (BEAKER) 247 mg/dL 70-110 TESTED AT [address] (test ejhi=1362) [facility] [address] CBC W/PLT COUNT & AUTO [id number] 13:56:00 Test Item Value Reference Range Comments WHITE BLOOD CELL COUNT (BEAKER) (test qnsf=997) 6.4 K/ L 3.5-10.5 RED BLOOD CELL COUNT (BEAKER) (test sgiz=482) 4.04 M/ L 4.63-6.08 HEMOGLOBIN (BEAKER) (test vsjg=579) 10.9 GM/DL 13.7-17.5 HEMATOCRIT (BEAKER) (test kdnu=246) 35.4 % 40.1-51.0 MEAN CORPUSCULAR VOLUME (BEAKER) (test xicw=199) 87.6 fL 79.0-92.2 MEAN CORPUSCULAR HEMOGLOBIN (BEAKER) (test 27.0 pg 25.7-32.2 crbb=009) MEAN CORPUSCULAR HEMOGLOBIN CONC (BEAKER) (test 30.8 GM/DL 32.3-36.5 iugd=479) RED CELL DISTRIBUTION WIDTH (BEAKER) (test 16.1 % 11.6-14.4 abxw=667) PLATELET COUNT (BEAKER) (test dkui=591) 98 K/CU MM 150-450 MEAN PLATELET VOLUME (BEAKER) (test hosv=034) 10.5 fL 9.4-12.4 NUCLEATED RED BLOOD CELLS (BEAKER) (test 0 /100 WBC 0-0 xkyg=608) IMMATURE GRANULOCYTES-RELATIVE PERCENT (BEAKER) 0 % 0-1 (test gcqv=7946) (MANUAL DIFFERENTIAL)2017-02-07 13:56:00 Test Item Value Reference Range Comments NEUTROPHILS - REL (DIFF) (BEAKER) (test rcbn=9173) 52 % LYMPHOCYTES - REL (DIFF) (BEAKER) (test ftmy=6664) 26 % MONOCYTES - REL (DIFF) (BEAKER) (test hwqt=6980) 14 % EOSINOPHILS - REL (DIFF) (BEAKER) (test gsop=4532) 6 % BASOPHILS - REL (DIFF) (BEAKER) (test xujw=8562) 0 % BANDS - REL (DIFF) (BEAKER) (test lebh=6614) 1 % 0-10 ATYPICAL LYMPHOCYTE - REL (DIFF) (BEAKER) (test 1 % 0-0 ptea=041) NEUTROPHILS - ABS (DIFF) (BEAKER) (test jdwk=3371) 3.33 K/ L 1.80-8.00 LYMPHOCYTES - ABS (DIFF) (BEAKER) (test cbmg=3223) 1.66 K/ L 1.48-4.50 MONOCYTES - ABS (DIFF) (BEAKER) (test udyq=9225) 0.90 K/ L 0.00-1.30 EOSINOPHILS - ABS (DIFF) (BEAKER) (test myol=9847) 0.38 K/ L 0.00-0.50 BASOPHILS - ABS (DIFF) (BEAKER) (test klzw=1472) 0.00 K/ L 0.00-0.20 BANDS-ABS (DIFF) (BEAKER) (test zklc=4145) 0.1 K/ L 0.0-0.8 ATYPICAL LYMPHOCYTES - ABS (DIFF) (BEAKER) (test 0.06 K/ L 0.00-0.00 aqra=126) TOTAL COUNTED (BEAKER) (test ivmx=8196) 100 BANDS + SEGMENTED NEUTROPHILS (BEAKER) (test 3.39 txvv=5234) WBC MORPHOLOGY (BEAKER) (test txxa=888) Normal PLT MORPHOLOGY (BEAKER) (test dqpn=079) Normal RBC MORPHOLOGY (BEAKER) (test wbgx=399) Normal POCT-GLUCOSE [id number] 13:22:00 Test Item Value Reference Range Comments POC-GLUCOSE METER (BEAKER) 226 mg/dL 70-110 TESTED AT [address] (test jbbo=6065) [place] [id number] POCT-GLUCOSE [id number] 07:59:00 Test Item Value Reference Range Comments POC-GLUCOSE METER (BEAKER) 216 mg/dL 70-110 TESTED AT [address] (test szhx=2863) [place] [address] [id number] 05:18:00 Test Item Value Reference Range Comments MAGNESIUM (BEAKER) (test yloq=902) 1.7 mg/dL 1.6-2.6 BASIC METABOLIC [id number] 05:18:00 Test Item Value Reference Range Comments SODIUM (BEAKER) (test 136 meq/L 136-145 qxje=880) POTASSIUM (BEAKER) (test 3.4 meq/L 3.5-5.1 pose=668) CHLORIDE (BEAKER) (test 101 meq/L 98-107 gvgd=756) CO2 (BEAKER) (test 26 meq/L 22-29 lywl=461) BLOOD UREA NITROGEN 25 mg/dL 7-21 (BEAKER) (test ixub=120) CREATININE (BEAKER) (test 1.50 mg/dL 0.57-1.25 vxct=895) GLUCOSE RANDOM (BEAKER) 216 mg/dL 70-105 (test dwgn=539) CALCIUM (BEAKER) (test 8.5 mg/dL 8.4-10.2 ujvc=214) EGFR (BEAKER) (test 46 mL/min/1.73 sq m ESTIMATED GFR IS NOT ofbq=9838) ACCURATE CREATININE CLEARANCE IN PREDICTING GLOMERULAR FILTRATION RATE. ESTIMATED GFR IS NOT APPLICABLE FOR DIALYSIS PATIENTS. POCT-GLUCOSE [id number] 20:58:00 Test Item Value Reference Range Comments POC-GLUCOSE METER (BEAKER) 260 mg/dL 70-110 TESTED AT [address] (test jmmw=8796) [place] [address] POCT-GLUCOSE [id number] 17:32:00 Test Item Value Reference Range Comments POC-GLUCOSE METER (BEAKER) 237 mg/dL 70-110 TESTED AT [address] (test awbe=1383) [place] [address] POCT-GLUCOSE [id number] 16:21:00 Test Item Value Reference Range Comments POC-GLUCOSE METER (BEAKER) 223 mg/dL 70-110 TESTED AT [facility] [address] [facility] (test grvv=0919) [facility] [address] CBC W/PLT COUNT & AUTO [id number] 14:22:00 Test Item Value Reference Range Comments WHITE BLOOD CELL COUNT (BEAKER) (test thls=101) 6.5 K/ L 3.5-10.5 RED BLOOD CELL COUNT (BEAKER) (test qwkg=004) 4.17 M/ L 4.63-6.08 HEMOGLOBIN (BEAKER) (test jdjt=386) 11.3 GM/DL 13.7-17.5 HEMATOCRIT (BEAKER) (test sasf=898) 36.8 % 40.1-51.0 MEAN CORPUSCULAR VOLUME (BEAKER) (test yyzv=560) 88.2 fL 79.0-92.2 MEAN CORPUSCULAR HEMOGLOBIN (BEAKER) (test 27.1 pg 25.7-32.2 xpre=723) MEAN CORPUSCULAR HEMOGLOBIN CONC (BEAKER) (test 30.7 GM/DL 32.3-36.5 suot=872) RED CELL DISTRIBUTION WIDTH (BEAKER) (test 16.1 % 11.6-14.4 asxk=120) PLATELET COUNT (BEAKER) (test kyya=255) 116 K/CU MM 150-450 MEAN PLATELET VOLUME (BEAKER) (test ucqw=970) 10.7 fL 9.4-12.4 NUCLEATED RED BLOOD CELLS (BEAKER) (test 0 /100 WBC 0-0 usbq=550) NEUTROPHILS RELATIVE PERCENT (BEAKER) (test 48 % ikjw=150) LYMPHOCYTES RELATIVE PERCENT (BEAKER) (test 30 % wtgp=463) MONOCYTES RELATIVE PERCENT (BEAKER) (test 20 % mmcj=248) EOSINOPHILS RELATIVE PERCENT (BEAKER) (test 1 % fxym=026) BASOPHILS RELATIVE PERCENT (BEAKER) (test 0 % zjbg=703) NEUTROPHILS ABSOLUTE COUNT (BEAKER) (test 3.09 K/ L 1.78-5.38 enhb=614) LYMPHOCYTES ABSOLUTE COUNT (BEAKER) (test 1.95 K/ L 1.32-3.57 txko=057) MONOCYTES ABSOLUTE COUNT (BEAKER) (test 1.32 K/ L 0.30-0.82 sija=813) EOSINOPHILS ABSOLUTE COUNT (BEAKER) (test 0.07 K/ L 0.04-0.54 sgqy=636) BASOPHILS ABSOLUTE COUNT (BEAKER) (test 0.02 K/ L 0.01-0.08 abbr=474) IMMATURE GRANULOCYTES-RELATIVE PERCENT (BEAKER) 0 % 0-1 (test igce=8000) (MANUAL DIFFERENTIAL)2017-02-06 14:22:00 Test Item Value Reference Range Comments TOTAL COUNTED (BEAKER) (test faol=8540) WBC MORPHOLOGY (BEAKER) (test czjv=814) Normal PLT MORPHOLOGY (BEAKER) (test pzqb=568) Normal RBC MORPHOLOGY (BEAKER) (test wwkn=119) Normal POCT-GLUCOSE [id number] 11:52:00 Test Item Value Reference Range Comments POC-GLUCOSE METER (BEAKER) 143 mg/dL 70-110 TESTED AT [address] (test ymbn=3208) [place] [id number] POCT-GLUCOSE [id number] 08:04:00 Test Item Value Reference Range Comments POC-GLUCOSE METER (BEAKER) 86 mg/dL 70-110 TESTED AT [address] (test vhwk=2408) [place] [address] [id number] 06:07:00 Test Item Value Reference Range Comments MAGNESIUM (BEAKER) (test 1.6 mg/dL 1.6-2.6 Specimen slightly hemolyzed tlgu=692) BASIC METABOLIC [id number] 06:07:00 Test Item Value Reference Range Comments SODIUM (BEAKER) (test 135 meq/L 136-145 wzma=368) POTASSIUM (BEAKER) (test 3.7 meq/L 3.5-5.1 Specimen slightly krzt=042) hemolyzed CHLORIDE (BEAKER) (test 104 meq/L 98-107 ghbi=837) CO2 (BEAKER) (test 22 meq/L 22-29 khli=609) BLOOD UREA NITROGEN 27 mg/dL 7-21 (BEAKER) (test ndzp=300) CREATININE (BEAKER) (test 1.32 mg/dL 0.57-1.25 Specimen slightly hxnz=793) hemolyzed GLUCOSE RANDOM (BEAKER) 103 mg/dL 70-105 (test sjdm=834) CALCIUM (BEAKER) (test 8.4 mg/dL 8.4-10.2 uwat=325) EGFR (BEAKER) (test 53 mL/min/1.73 sq m ESTIMATED GFR IS NOT pwpv=1365) ACCURATE CREATININE CLEARANCE IN PREDICTING GLOMERULAR FILTRATION RATE. ESTIMATED GFR IS NOT APPLICABLE FOR DIALYSIS PATIENTS. POCT-GLUCOSE [id number] 20:42:00 Test Item Value Reference Range Comments POC-GLUCOSE METER (BEAKER) 338 mg/dL 70-110 TESTED AT [facility] [address] [facility] (test igku=8896) [facility] [address] POCT-GLUCOSE [id number] 17:41:00 Test Item Value Reference Range Comments POC-GLUCOSE METER (BEAKER) 303 mg/dL 70-110 TESTED AT [address] (test wfgh=7538) [facility] [address] RAD, CHEST, 1 VIEW, NON [id number] 14:44:00Reason for exam:->shortness of breath s/p RHCShould this be performed at the bedside?->YesFINAL REPORT CLINICAL HISTORY: shortness of breath s/p RHC TECHNIQUE : 1 viewof the chest. COMPARISON: 01/31/2017 IMPRESSION: Trace bilateral pleural effusions are again seen with left basilar atelectasis. The cardiomediastinal silhouette is magnified by technique with a pacemaker. Signed : Barbara Espinoza MDReport Verified Date/Time: 02/05/2017 14:44:20 Reading Location: [address] Consult Reading Room CBC W/PLT COUNT & AUTO [id number] 14:37:00 Test Item Value Reference Range Comments WHITE BLOOD CELL COUNT (BEAKER) (test rlfe=704) 7.1 K/ L 3.5-10.5 RED BLOOD CELL COUNT (BEAKER) (test pmff=927) 4.34 M/ L 4.63-6.08 HEMOGLOBIN (BEAKER) (test qpgg=449) 11.8 GM/DL 13.7-17.5 HEMATOCRIT (BEAKER) (test yqeq=106) 38.1 % 40.1-51.0 MEAN CORPUSCULAR VOLUME (BEAKER) (test kotp=347) 87.8 fL 79.0-92.2 MEAN CORPUSCULAR HEMOGLOBIN (BEAKER) (test 27.2 pg 25.7-32.2 mgxu=748) MEAN CORPUSCULAR HEMOGLOBIN CONC (BEAKER) (test 31.0 GM/DL 32.3-36.5 wcij=229) RED CELL DISTRIBUTION WIDTH (BEAKER) (test 16.1 % 11.6-14.4 stbe=931) PLATELET COUNT (BEAKER) (test brbr=560) 112 K/CU MM 150-450 MEAN PLATELET VOLUME (BEAKER) (test qdun=244) 10.6 fL 9.4-12.4 NUCLEATED RED BLOOD CELLS (BEAKER) (test 0 /100 WBC 0-0 tumx=480) NEUTROPHILS RELATIVE PERCENT (BEAKER) (test 55 % luvn=722) LYMPHOCYTES RELATIVE PERCENT (BEAKER) (test 20 % eyrs=414) MONOCYTES RELATIVE PERCENT (BEAKER) (test 23 % wroq=456) EOSINOPHILS RELATIVE PERCENT (BEAKER) (test 1 % dwqg=440) BASOPHILS RELATIVE PERCENT (BEAKER) (test 0 % qkww=201) NEUTROPHILS ABSOLUTE COUNT (BEAKER) (test 3.91 K/ L 1.78-5.38 cygb=141) LYMPHOCYTES ABSOLUTE COUNT (BEAKER) (test 1.43 K/ L 1.32-3.57 nivz=461) MONOCYTES ABSOLUTE COUNT (BEAKER) (test 1.67 K/ L 0.30-0.82 gima=711) EOSINOPHILS ABSOLUTE COUNT (BEAKER) (test 0.08 K/ L 0.04-0.54 gbni=408) BASOPHILS ABSOLUTE COUNT (BEAKER) (test 0.03 K/ L 0.01-0.08 jmkd=497) IMMATURE GRANULOCYTES-RELATIVE PERCENT (BEAKER) 0 % 0-1 (test mhrt=2381) (MANUAL DIFFERENTIAL)2017-02-05 14:37:00 Test Item Value Reference Range Comments TOTAL COUNTED (BEAKER) (test ozck=7583) WBC MORPHOLOGY (BEAKER) (test jfap=579) Normal PLT MORPHOLOGY (BEAKER) (test yoxh=273) Normal RBC MORPHOLOGY (BEAKER) (test dayi=330) Normal POCT-GLUCOSE [id number] 12:08:00 Test Item Value Reference Range Comments POC-GLUCOSE METER (BEAKER) 197 mg/dL 70-110 TESTED AT [address] (test tbej=2338) [facility] [address] POCT-GLUCOSE [id number] 07:55:00 Test Item Value Reference Range Comments POC-GLUCOSE METER (BEAKER) 149 mg/dL 70-110 TESTED AT [address] (test svdj=1215) [place] [address] [id number] 05:21:00 Test Item Value Reference Range Comments MAGNESIUM (BEAKER) (test bfyo=276) 1.4 mg/dL 1.6-2.6 BASIC METABOLIC [id number] 05:21:00 Test Item Value Reference Range Comments SODIUM (BEAKER) (test 139 meq/L 136-145 fvbz=085) POTASSIUM (BEAKER) (test 3.7 meq/L 3.5-5.1 oppu=597) CHLORIDE (BEAKER) (test 107 meq/L 98-107 dtwf=460) CO2 (BEAKER) (test 23 meq/L 22-29 brnp=885) BLOOD UREA NITROGEN 24 mg/dL 7-21 (BEAKER) (test tbhx=646) CREATININE (BEAKER) (test 1.31 mg/dL 0.57-1.25 mnpa=808) GLUCOSE RANDOM (BEAKER) 155 mg/dL 70-105 (test iovc=991) CALCIUM (BEAKER) (test 8.5 mg/dL 8.4-10.2 xask=992) EGFR (BEAKER) (test 54 mL/min/1.73 sq m ESTIMATED GFR IS NOT hzgc=0242) ACCURATE CREATININE CLEARANCE IN PREDICTING GLOMERULAR FILTRATION RATE. ESTIMATED GFR IS NOT APPLICABLE FOR DIALYSIS PATIENTS. POCT-GLUCOSE [id number] 21:03:00 Test Item Value Reference Range Comments POC-GLUCOSE METER (BEAKER) 296 mg/dL 70-110 TESTED AT [address] (test dgwh=6907) [facility] [address] POCT-GLUCOSE [id number] 17:18:00 Test Item Value Reference Range Comments POC-GLUCOSE METER (BEAKER) 275 mg/dL 70-110 TESTED AT [address] (test zdpk=2715) [facility] [address] CBC W/PLT COUNT & AUTO [id number] 15:04:00 Test Item Value Reference Range Comments WHITE BLOOD CELL COUNT (BEAKER) (test matn=737) 7.2 K/ L 3.5-10.5 RED BLOOD CELL COUNT (BEAKER) (test bipg=071) 4.24 M/ L 4.63-6.08 HEMOGLOBIN (BEAKER) (test rlzy=763) 11.5 GM/DL 13.7-17.5 HEMATOCRIT (BEAKER) (test lfrm=582) 37.6 % 40.1-51.0 MEAN CORPUSCULAR VOLUME (BEAKER) (test iuwl=114) 88.7 fL 79.0-92.2 MEAN CORPUSCULAR HEMOGLOBIN (BEAKER) (test 27.1 pg 25.7-32.2 unzc=618) MEAN CORPUSCULAR HEMOGLOBIN CONC (BEAKER) (test 30.6 GM/DL 32.3-36.5 nqen=244) RED CELL DISTRIBUTION WIDTH (BEAKER) (test 16.3 % 11.6-14.4 sutr=193) PLATELET COUNT (BEAKER) (test qnhd=227) 116 K/CU MM 150-450 MEAN PLATELET VOLUME (BEAKER) (test sxyw=990) 10.6 fL 9.4-12.4 NUCLEATED RED BLOOD CELLS (BEAKER) (test 0 /100 WBC 0-0 hqfa=011) NEUTROPHILS RELATIVE PERCENT (BEAKER) (test 51 % dgdv=960) LYMPHOCYTES RELATIVE PERCENT (BEAKER) (test 22 % eabq=500) MONOCYTES RELATIVE PERCENT (BEAKER) (test 24 % nzvl=497) EOSINOPHILS RELATIVE PERCENT (BEAKER) (test 1 % yhgn=324) BASOPHILS RELATIVE PERCENT (BEAKER) (test 0 % fosv=657) NEUTROPHILS ABSOLUTE COUNT (BEAKER) (test 3.71 K/ L 1.78-5.38 jaar=907) LYMPHOCYTES ABSOLUTE COUNT (BEAKER) (test 1.62 K/ L 1.32-3.57 mqcr=578) MONOCYTES ABSOLUTE COUNT (BEAKER) (test 1.74 K/ L 0.30-0.82 cudw=515) EOSINOPHILS ABSOLUTE COUNT (BEAKER) (test 0.08 K/ L 0.04-0.54 gmax=998) BASOPHILS ABSOLUTE COUNT (BEAKER) (test 0.03 K/ L 0.01-0.08 nyzv=438) IMMATURE GRANULOCYTES-RELATIVE PERCENT (BEAKER) 1 % 0-1 (test fryu=7698) (MANUAL DIFFERENTIAL)2017-02-04 15:04:00 Test Item Value Reference Range Comments TOTAL COUNTED (BEAKER) (test pmyx=0310) POCT-GLUCOSE [id number] 12:17:00 Test Item Value Reference Range Comments POC-GLUCOSE METER (BEAKER) 208 mg/dL 70-110 TESTED AT [address] (test zdqr=4537) [facility] [address] POCT-GLUCOSE [id number] 08:57:00 Test Item Value Reference Range Comments POC-GLUCOSE METER (BEAKER) 230 mg/dL 70-110 TESTED AT [address] (test rjay=0610) [place] [id number] 05:56:00 Test Item Value Reference Range Comments MAGNESIUM (BEAKER) (test opzs=143) 1.6 mg/dL 1.6-2.6 BASIC METABOLIC [id number] 05:56:00 Test Item Value Reference Range Comments SODIUM (BEAKER) (test 137 meq/L 136-145 anwf=621) POTASSIUM (BEAKER) (test 4.2 meq/L 3.5-5.1 ndop=665) CHLORIDE (BEAKER) (test 108 meq/L 98-107 hxjj=072) CO2 (BEAKER) (test 19 meq/L 22-29 foim=632) BLOOD UREA NITROGEN 28 mg/dL 7-21 (BEAKER) (test dygz=186) CREATININE (BEAKER) (test 1.35 mg/dL 0.57-1.25 gfmd=645) GLUCOSE RANDOM (BEAKER) 271 mg/dL 70-105 (test tecj=807) CALCIUM (BEAKER) (test 8.4 mg/dL 8.4-10.2 hmrz=496) EGFR (BEAKER) (test 52 mL/min/1.73 sq m ESTIMATED GFR IS NOT pgsj=0064) ACCURATE CREATININE CLEARANCE IN PREDICTING GLOMERULAR FILTRATION RATE. ESTIMATED GFR IS NOT APPLICABLE FOR DIALYSIS PATIENTS. POCT-GLUCOSE [id number] 21:20:00 Test Item Value Reference Range Comments POC-GLUCOSE METER (BEAKER) 329 mg/dL 70-110 Notified JUDSON WATTS/TESTED AT [facility] (test orwq=6788) [facility] [address] POCT-GLUCOSE [id number] 18:14:00 Test Item Value Reference Range Comments POC-GLUCOSE METER (BEAKER) 299 mg/dL 70-110 TESTED AT [facility] [address] (test xndo=4451) [facility] [address] CBC W/PLT COUNT & AUTO [id number] 15:17:00 Test Item Value Reference Range Comments WHITE BLOOD CELL COUNT (BEAKER) (test zxlp=182) 8.0 K/ L 3.5-10.5 RED BLOOD CELL COUNT (BEAKER) (test xxuf=664) 4.25 M/ L 4.63-6.08 HEMOGLOBIN (BEAKER) (test bqel=973) 11.7 GM/DL 13.7-17.5 HEMATOCRIT (BEAKER) (test tvak=387) 37.9 % 40.1-51.0 MEAN CORPUSCULAR VOLUME (BEAKER) (test lyyd=510) 89.2 fL 79.0-92.2 MEAN CORPUSCULAR HEMOGLOBIN (BEAKER) (test 27.5 pg 25.7-32.2 xsay=658) MEAN CORPUSCULAR HEMOGLOBIN CONC (BEAKER) (test 30.9 GM/DL 32.3-36.5 mjqw=833) RED CELL DISTRIBUTION WIDTH (BEAKER) (test 16.1 % 11.6-14.4 mqgj=540) PLATELET COUNT (BEAKER) (test iauy=476) 139 K/CU MM 150-450 MEAN PLATELET VOLUME (BEAKER) (test rfde=793) 10.4 fL 9.4-12.4 NUCLEATED RED BLOOD CELLS (BEAKER) (test 0 /100 WBC 0-0 gjzp=393) NEUTROPHILS RELATIVE PERCENT (BEAKER) (test 52 % gpvl=261) LYMPHOCYTES RELATIVE PERCENT (BEAKER) (test 24 % feev=564) MONOCYTES RELATIVE PERCENT (BEAKER) (test 22 % kaku=588) EOSINOPHILS RELATIVE PERCENT (BEAKER) (test 2 % hhjw=532) BASOPHILS RELATIVE PERCENT (BEAKER) (test 0 % zdbb=050) NEUTROPHILS ABSOLUTE COUNT (BEAKER) (test 4.11 K/ L 1.78-5.38 xrzo=580) LYMPHOCYTES ABSOLUTE COUNT (BEAKER) (test 1.91 K/ L 1.32-3.57 yfsl=556) MONOCYTES ABSOLUTE COUNT (BEAKER) (test 1.75 K/ L 0.30-0.82 qikd=966) EOSINOPHILS ABSOLUTE COUNT (BEAKER) (test 0.14 K/ L 0.04-0.54 kttd=778) BASOPHILS ABSOLUTE COUNT (BEAKER) (test 0.03 K/ L 0.01-0.08 xknj=384) IMMATURE GRANULOCYTES-RELATIVE PERCENT (BEAKER) 0 % 0-1 (test ipco=9802) (MANUAL DIFFERENTIAL)2017-02-03 15:17:00 Test Item Value Reference Range Comments TOTAL COUNTED (BEAKER) (test klez=2070) WBC MORPHOLOGY (BEAKER) (test bkki=235) Normal PLT MORPHOLOGY (BEAKER) (test jqgs=496) Normal RBC MORPHOLOGY (BEAKER) (test yqpf=780) Normal POCT-GLUCOSE [id number] 12:54:00 Test Item Value Reference Range Comments POC-GLUCOSE METER (BEAKER) 173 mg/dL 70-110 TESTED AT [facility] [address] [facility] (test wwis=3621) [facility] [address] URINALYSIS W/ REFLEX URINE [id number] 12:06:00 Test Item Value Reference Range Comments COLOR (BEAKER) (test qeib=638) Yellow CLARITY (BEAKER) (test wojn=155) Clear SPECIFIC GRAVITY UA (BEAKER) (test qxmp=469) 1.016 1.001-1.035 PH UA (BEAKER) (test pgal=367) 5.0 5.0-8.0 PROTEIN UA (BEAKER) (test slbq=722) 20 mg/dL Negative GLUCOSE UA (BEAKER) (test aiml=248) 50 mg/dL Negative KETONES UA (BEAKER) (test telv=090) Negative Negative BILIRUBIN UA (BEAKER) (test sjrm=666) Negative Negative BLOOD UA (BEAKER) (test tkyi=346) Trace Negative NITRITE UA (BEAKER) (test otao=517) Negative Negative LEUKOCYTE ESTERASE UA (BEAKER) (test ltzi=509) Negative Negative UROBILINOGEN UA (BEAKER) (test hnhv=875) 0.2 mg/dL 0.2-1.0 RBC UA (BEAKER) (test fxqx=389) 3 /HPF WBC UA (BEAKER) (test tglg=868) 4 /HPF BACTERIA (BEAKER) (test xeyz=364) Occasional MUCUS (BEAKER) (test dsqh=2682) Occasional SQUAMOUS EPITHELIAL (BEAKER) (test aviv=034) 1 /HPF AMORPHOUS CRYSTALS (BEAKER) (test mqxa=6733) Occasional SOURCE(BEAKER) (test nlrn=3218) CREATININE, RANDOM [id number] 10:52:00 Test Item Value Reference Range Comments CREATININE URINE (BEAKER) (test gwik=910) 127.3 mg/dL Reference Range: No NormalsPROTEIN, RANDOM [id number] 10:52:00 Test Item Value Reference Range Comments PROTEIN, URINE (BEAKER) (test dsvr=2368) 19 mg/dL 0-14 POCT-GLUCOSE [id number] 07:55:00 Test Item Value Reference Range Comments POC-GLUCOSE METER (BEAKER) 88 mg/dL 70-110 TESTED AT [facility] [address] [facility] (test amyj=3595) [facility] [address] [id number] 05:22:00 Test Item Value Reference Range Comments MAGNESIUM (BEAKER) (test ttkk=882) 1.8 mg/dL 1.6-2.6 BASIC METABOLIC [id number] 05:22:00 Test Item Value Reference Range Comments SODIUM (BEAKER) (test 138 meq/L 136-145 ewds=682) POTASSIUM (BEAKER) (test 4.0 meq/L 3.5-5.1 mevd=527) CHLORIDE (BEAKER) (test 110 meq/L 98-107 tqso=330) CO2 (BEAKER) (test 21 meq/L 22-29 dwrp=546) BLOOD UREA NITROGEN 31 mg/dL 7-21 (BEAKER) (test keoz=703) CREATININE (BEAKER) (test 1.27 mg/dL 0.57-1.25 bvcd=481) GLUCOSE RANDOM (BEAKER) 130 mg/dL 70-105 (test plqx=032) CALCIUM (BEAKER) (test 8.4 mg/dL 8.4-10.2 deqy=470) EGFR (BEAKER) (test 56 mL/min/1.73 sq m ESTIMATED GFR IS NOT znlc=1111) ACCURATE CREATININE CLEARANCE IN PREDICTING GLOMERULAR FILTRATION RATE. ESTIMATED GFR IS NOT APPLICABLE FOR DIALYSIS PATIENTS. B-TYPE NATRIURETIC FACTOR (BNP)2017-02-03 05:17:00 Test Item Value Reference Range Comments B-TYPE NATRIURETIC PEPTIDE (BEAKER) (test 315 pg/mL 0-100 rxbb=960) POCT-GLUCOSE [id number] 21:36:00 Test Item Value Reference Range Comments POC-GLUCOSE METER (BEAKER) 230 mg/dL 70-110 TESTED AT [address] (test adbd=7253) [place] [address] POCT-GLUCOSE [id number] 17:50:00 Test Item Value Reference Range Comments POC-GLUCOSE METER (BEAKER) 185 mg/dL 70-110 TESTED AT [address] (test fubj=9849) [place] [address] POCT-GLUCOSE [id number] 12:49:00 Test Item Value Reference Range Comments POC-GLUCOSE METER (BEAKER) 168 mg/dL 70-110 TESTED AT [address] (test ynad=8068) [place] [address] CT, CHEST, WITHOUT [id number] 11:27:00FINAL REPORT Chest CT without contrast Reason [...] Verified Date/Time: 02/02/2017 11:27:58 Reading Location: [facility] B1 [id number] Ortho Consult Reading Room Electronically signed by: CAR KABA M.D. on 11:27 AMPOCT-GLUCOSE [id number] 08:24:00 Test Item Value Reference Range Comments POC-GLUCOSE METER (BEAKER) 84 mg/dL 70-110 TESTED AT [facility] [address] [facility] (test cwvi=2231) [facility] [address] [id number] 07:42:00 Test Item Value Reference Range Comments MAGNESIUM (BEAKER) (test kipq=286) 1.8 mg/dL 1.6-2.6 BASIC METABOLIC [id number] 07:42:00 Test Item Value Reference Range Comments SODIUM (BEAKER) (test 137 meq/L 136-145 drdf=087) POTASSIUM (BEAKER) (test 3.8 meq/L 3.5-5.1 joki=017) CHLORIDE (BEAKER) (test 108 meq/L 98-107 cllk=952) CO2 (BEAKER) (test 20 meq/L 22-29 wfkm=458) BLOOD UREA NITROGEN 35 mg/dL 7-21 (BEAKER) (test woop=360) CREATININE (BEAKER) (test 1.30 mg/dL 0.57-1.25 bxpt=398) GLUCOSE RANDOM (BEAKER) 102 mg/dL 70-105 (test spik=169) CALCIUM (BEAKER) (test 8.4 mg/dL 8.4-10.2 phtt=860) EGFR (BEAKER) (test 54 mL/min/1.73 sq m ESTIMATED GFR IS NOT hxai=7148) ACCURATE CREATININE CLEARANCE IN PREDICTING GLOMERULAR FILTRATION RATE. ESTIMATED GFR IS NOT APPLICABLE FOR DIALYSIS PATIENTS. CBC W/PLT COUNT & AUTO [id number] 07:40:00 Test Item Value Reference Range Comments WHITE BLOOD CELL COUNT (BEAKER) (test osyp=869) 9.3 K/ L 3.5-10.5 RED BLOOD CELL COUNT (BEAKER) (test jtyn=951) 4.32 M/ L 4.63-6.08 HEMOGLOBIN (BEAKER) (test ywus=162) 11.9 GM/DL 13.7-17.5 HEMATOCRIT (BEAKER) (test gfdu=813) 38.3 % 40.1-51.0 MEAN CORPUSCULAR VOLUME (BEAKER) (test xxmw=818) 88.7 fL 79.0-92.2 MEAN CORPUSCULAR HEMOGLOBIN (BEAKER) (test 27.5 pg 25.7-32.2 qiuq=315) MEAN CORPUSCULAR HEMOGLOBIN CONC (BEAKER) (test 31.1 GM/DL 32.3-36.5 zour=188) RED CELL DISTRIBUTION WIDTH (BEAKER) (test 16.4 % 11.6-14.4 osik=117) PLATELET COUNT (BEAKER) (test jaga=158) 150 K/CU MM 150-450 MEAN PLATELET VOLUME (BEAKER) (test jzyt=069) 10.3 fL 9.4-12.4 NUCLEATED RED BLOOD CELLS (BEAKER) (test 0 /100 WBC 0-0 ntcs=671) NEUTROPHILS RELATIVE PERCENT (BEAKER) (test 58 % xwtm=065) LYMPHOCYTES RELATIVE PERCENT (BEAKER) (test 20 % wdab=277) MONOCYTES RELATIVE PERCENT (BEAKER) (test 20 % kgzw=588) EOSINOPHILS RELATIVE PERCENT (BEAKER) (test 2 % hnde=110) BASOPHILS RELATIVE PERCENT (BEAKER) (test 0 % vdyf=906) NEUTROPHILS ABSOLUTE COUNT (BEAKER) (test 5.35 K/ L 1.78-5.38 uanj=783) LYMPHOCYTES ABSOLUTE COUNT (BEAKER) (test 1.84 K/ L 1.32-3.57 bosv=400) MONOCYTES ABSOLUTE COUNT (BEAKER) (test 1.83 K/ L 0.30-0.82 mves=337) EOSINOPHILS ABSOLUTE COUNT (BEAKER) (test 0.16 K/ L 0.04-0.54 dqib=393) BASOPHILS ABSOLUTE COUNT (BEAKER) (test 0.03 K/ L 0.01-0.08 mpsx=410) IMMATURE GRANULOCYTES-RELATIVE PERCENT (BEAKER) 0 % 0-1 (test dazb=2967) POCT-GLUCOSE [id number] 21:29:00 Test Item Value Reference Range Comments POC-GLUCOSE METER (BEAKER) 273 mg/dL 70-110 TESTED AT [address] (test cmml=6200) [facility] [address] POCT-GLUCOSE [id number] 19:21:00 Test Item Value Reference Range Comments POC-GLUCOSE METER (BEAKER) 286 mg/dL 70-110 TESTED AT [address] (test fvvu=1718) [facility] [address] POCT-GLUCOSE [id number] 17:33:00 Test Item Value Reference Range Comments POC-GLUCOSE METER (BEAKER) 263 mg/dL 70-110 TESTED AT [address] (test pctt=1345) [facility] [address] POCT-GLUCOSE [id number] 12:25:00 Test Item Value Reference Range Comments POC-GLUCOSE METER (BEAKER) 196 mg/dL 70-110 TESTED AT [address] (test tare=8257) [facility] [address] CBC W/PLT COUNT & AUTO [id number] 10:54:00 Test Item Value Reference Range Comments WHITE BLOOD CELL COUNT (BEAKER) (test jsrl=336) 9.0 K/ L 3.5-10.5 RED BLOOD CELL COUNT (BEAKER) (test sdpl=555) 4.43 M/ L 4.63-6.08 HEMOGLOBIN (BEAKER) (test csft=180) 12.2 GM/DL 13.7-17.5 HEMATOCRIT (BEAKER) (test lruw=616) 39.3 % 40.1-51.0 MEAN CORPUSCULAR VOLUME (BEAKER) (test bzeh=877) 88.7 fL 79.0-92.2 MEAN CORPUSCULAR HEMOGLOBIN (BEAKER) (test 27.5 pg 25.7-32.2 hdex=390) MEAN CORPUSCULAR HEMOGLOBIN CONC (BEAKER) (test 31.0 GM/DL 32.3-36.5 klgi=433) RED CELL DISTRIBUTION WIDTH (BEAKER) (test 16.4 % 11.6-14.4 weko=168) PLATELET COUNT (BEAKER) (test sjsw=922) 157 K/CU MM 150-450 MEAN PLATELET VOLUME (BEAKER) (test gxpv=728) 11.1 fL 9.4-12.4 NUCLEATED RED BLOOD CELLS (BEAKER) (test 0 /100 WBC 0-0 gkis=610) NEUTROPHILS RELATIVE PERCENT (BEAKER) (test 55 % zjiy=670) LYMPHOCYTES RELATIVE PERCENT (BEAKER) (test 24 % wxil=114) MONOCYTES RELATIVE PERCENT (BEAKER) (test 19 % dgci=549) EOSINOPHILS RELATIVE PERCENT (BEAKER) (test 2 % ettc=614) BASOPHILS RELATIVE PERCENT (BEAKER) (test 0 % ltpr=118) NEUTROPHILS ABSOLUTE COUNT (BEAKER) (test 4.95 K/ L 1.78-5.38 iepl=027) LYMPHOCYTES ABSOLUTE COUNT (BEAKER) (test 2.13 K/ L 1.32-3.57 lgyp=138) MONOCYTES ABSOLUTE COUNT (BEAKER) (test 1.71 K/ L 0.30-0.82 jjzf=865) EOSINOPHILS ABSOLUTE COUNT (BEAKER) (test 0.17 K/ L 0.04-0.54 eyse=485) BASOPHILS ABSOLUTE COUNT (BEAKER) (test 0.02 K/ L 0.01-0.08 slgj=434) IMMATURE GRANULOCYTES-RELATIVE PERCENT (BEAKER) 0 % 0-1 (test kftk=2454) (MANUAL DIFFERENTIAL)2017-02-01 10:54:00 Test Item Value Reference Range Comments TOTAL COUNTED (BEAKER) (test vkwm=3117) WBC MORPHOLOGY (BEAKER) (test kskk=149) Normal PLT MORPHOLOGY (BEAKER) (test xmmw=661) Normal RBC MORPHOLOGY (BEAKER) (test gyda=116) Normal POCT-GLUCOSE [id number] 08:17:00 Test Item Value Reference Range Comments POC-GLUCOSE METER (BEAKER) 176 mg/dL 70-110 TESTED AT [facility] [address] [facility] (test fisz=6747) [facility] [address] [id number] 06:41:00 Test Item Value Reference Range Comments MAGNESIUM (BEAKER) (test tzbm=567) 1.7 mg/dL 1.6-2.6 BASIC METABOLIC [id number] 06:41:00 Test Item Value Reference Range Comments SODIUM (BEAKER) (test 136 meq/L 136-145 eafu=647) POTASSIUM (BEAKER) (test 3.6 meq/L 3.5-5.1 ytpi=192) CHLORIDE (BEAKER) (test 107 meq/L 98-107 ydhz=110) CO2 (BEAKER) (test 21 meq/L 22-29 rrye=986) BLOOD UREA NITROGEN 37 mg/dL 7-21 (BEAKER) (test jljx=161) CREATININE (BEAKER) (test 1.43 mg/dL 0.57-1.25 ibvp=733) GLUCOSE RANDOM (BEAKER) 180 mg/dL 70-105 (test mfmg=978) CALCIUM (BEAKER) (test 8.4 mg/dL 8.4-10.2 toip=623) EGFR (BEAKER) (test 48 mL/min/1.73 sq m ESTIMATED GFR IS NOT fprc=8220) ACCURATE CREATININE CLEARANCE IN PREDICTING GLOMERULAR FILTRATION RATE. ESTIMATED GFR IS NOT APPLICABLE FOR DIALYSIS PATIENTS. POCT-GLUCOSE [id number] 21:33:00 Test Item Value Reference Range Comments POC-GLUCOSE METER (BEAKER) 295 mg/dL 70-110 TESTED AT [address] (test xtws=8433) [place] [id number] POCT-GLUCOSE [id number] 17:47:00 Test Item Value Reference Range Comments POC-GLUCOSE METER (BEAKER) 277 mg/dL 70-110 TESTED AT [address] (test vlbt=9631) [place] [address] RAD, CHEST, 2 [id number] 15:44:00Reason for exam:->dyspneaFINAL REPORT HISTORY : dyspnea. [...] MDReport Verified Date/Time: 01/31/2017 15:44:13 Reading Location: [facility] C013X Ortho Consult Reading Room POCT-GLUCOSE [id number] 11:51:00 Test Item Value Reference Range Comments POC-GLUCOSE METER (BEAKER) 238 mg/dL 70-110 TESTED AT [address] (test lcor=7975) [facility] [address] POCT-GLUCOSE [id number] 09:54:00 Test Item Value Reference Range Comments POC-GLUCOSE METER (BEAKER) 224 mg/dL 70-110 TESTED AT [facility] [address] (test khdc=8211) [facility] [address] CBC W/PLT COUNT & AUTO [id number] 05:34:00 Test Item Value Reference Range Comments WHITE BLOOD CELL COUNT (BEAKER) (test dwtc=326) 9.4 K/ L 3.5-10.5 RED BLOOD CELL COUNT (BEAKER) (test lbpr=905) 4.42 M/ L 4.63-6.08 HEMOGLOBIN (BEAKER) (test vodq=059) 12.1 GM/DL 13.7-17.5 HEMATOCRIT (BEAKER) (test nqbz=814) 39.0 % 40.1-51.0 MEAN CORPUSCULAR VOLUME (BEAKER) (test rtln=680) 88.2 fL 79.0-92.2 MEAN CORPUSCULAR HEMOGLOBIN (BEAKER) (test 27.4 pg 25.7-32.2 evsp=547) MEAN CORPUSCULAR HEMOGLOBIN CONC (BEAKER) (test 31.0 GM/DL 32.3-36.5 lnoy=532) RED CELL DISTRIBUTION WIDTH (BEAKER) (test 16.5 % 11.6-14.4 gmyk=210) PLATELET COUNT (BEAKER) (test bsul=498) 176 K/CU MM 150-450 MEAN PLATELET VOLUME (BEAKER) (test aepr=695) 10.8 fL 9.4-12.4 NUCLEATED RED BLOOD CELLS (BEAKER) (test 0 /100 WBC 0-0 rqyi=740) NEUTROPHILS RELATIVE PERCENT (BEAKER) (test 52 % awgw=877) LYMPHOCYTES RELATIVE PERCENT (BEAKER) (test 26 % xifw=609) MONOCYTES RELATIVE PERCENT (BEAKER) (test 19 % vjdy=925) EOSINOPHILS RELATIVE PERCENT (BEAKER) (test 2 % owwf=394) BASOPHILS RELATIVE PERCENT (BEAKER) (test 0 % ownz=368) NEUTROPHILS ABSOLUTE COUNT (BEAKER) (test 4.91 K/ L 1.78-5.38 bvdl=637) LYMPHOCYTES ABSOLUTE COUNT (BEAKER) (test 2.41 K/ L 1.32-3.57 goad=877) MONOCYTES ABSOLUTE COUNT (BEAKER) (test 1.81 K/ L 0.30-0.82 ifso=884) EOSINOPHILS ABSOLUTE COUNT (BEAKER) (test 0.19 K/ L 0.04-0.54 ddwd=712) BASOPHILS ABSOLUTE COUNT (BEAKER) (test 0.02 K/ L 0.01-0.08 focl=395) IMMATURE GRANULOCYTES-RELATIVE PERCENT (BEAKER) 0 % 0-1 (test mbhc=7527) [id number] 05:19:00 Test Item Value Reference Range Comments MAGNESIUM (BEAKER) (test uzzw=052) 1.8 mg/dL 1.6-2.6 BASIC METABOLIC [id number] 05:19:00 Test Item Value Reference Range Comments SODIUM (BEAKER) (test 135 meq/L 136-145 grzu=286) POTASSIUM (BEAKER) (test 3.6 meq/L 3.5-5.1 aahl=869) CHLORIDE (BEAKER) (test 105 meq/L 98-107 koua=794) CO2 (BEAKER) (test 20 meq/L 22-29 zmjp=969) BLOOD UREA NITROGEN 46 mg/dL 7-21 (BEAKER) (test cuwh=403) CREATININE (BEAKER) (test 1.61 mg/dL 0.57-1.25 ufje=403) GLUCOSE RANDOM (BEAKER) 193 mg/dL 70-105 (test kaqe=723) CALCIUM (BEAKER) (test 8.5 mg/dL 8.4-10.2 gped=364) EGFR (BEAKER) (test 42 mL/min/1.73 sq m ESTIMATED GFR IS NOT huoi=5475) ACCURATE CREATININE CLEARANCE IN PREDICTING GLOMERULAR FILTRATION RATE. ESTIMATED GFR IS NOT APPLICABLE FOR DIALYSIS PATIENTS. STREP PNEUMONIAE [id number] 23:56:00 Test Item Value Reference Range Comments STREP PNEUMONIAE ANTIGEN Presumptive negative for Presumptive negative for (BEAKER) (test pneumococcal pneumonia - pneumococcal pneumonia - jaba=1618) see comment see commen Presumptive negative for pneumococcal pneumonia, suggesting no current or recent pneumococcal infection. Infection due to S. pneumoniae cannot be ruled out since the antigen present in the sample may be below the detection limit of the test.LEGIONELLA ANTIGEN, [id number] 23:54:00 Test Item Value Reference Range Comments L. PNEUMOPHILA SEROGP 1 Negative - see Negative for L. UR AG (BEAKER) (test comment pneumophila serogroup 1 atgp=6243) antigen, suggesting no recent or current infection with this serogroup. Legionellosis cannot be ruled out since other serogroups and species may cause disease. INFLUENZA A H1N1 [id number] 23:10:00 Test Item Value Reference Range Comments INFLUENZA A RNA (BEAKER) (test Not Detected Not Detected, Inconclusive rkox=6225) NOVEL H1N1 RNA (BEAKER) (test Not Detected Not Detected, Inconclusive syzc=9879) These assays were performed by real-time RT-PCR (ncaa compliance internship-PCR) utilizing fluorogenic hydrolysis probe technology for the detection of human Influenza A viruses and the differential detection of novel H1N1 Influenza virus in respiratory specimens. The test is composed of (1) an RNA extraction from patient specimen, and (2) ncaa compliance internship-PCR amplification and detection with human Influenza A and novel V4T7-uofwckan primers and probes. A well-conserved region of [...] and its performance characteristics determined by the [facility] Pathology Department, Section of Molecular Pathology. It has not been cleared or approved by the U.S. Food and Drug Administration (FDA). SinceFDA approval is not required for clinical use of the test, validation was done as required by The Clinical Laboratory Amendments of 1988.These assays were performed by real-time RT-PCR (ncaa compliance internship-PCR) utilizing fluorogenic hydrolysis probe technology for the detection of human Influenza A viruses and the differential detection of novel H1N1 Influenza virus in respiratory specimens. The test is composed of (1) an RNA extraction from patient specimen, and (2) ncaa compliance internship-PCR amplification and detection with human Influenza A and novel A9D2-zolojqrl primers and probes. A well-conserved region of [...] and its performance characteristics determined by the [facility] Pathology Department, Section of Molecular Pathology. It has not been cleared or approved by the U.S. Food and Drug Administration ( FDA). Since FDA approval is not required for clinical use of the test, validation was done as required by The Clinical Laboratory Amendments of 1988.POCT-GLUCOSE [id number] 23:03:00 Test Item Value Reference Range Comments POC-GLUCOSE METER (BEAKER) 233 mg/dL 70-110 TESTED AT [facility] [address] [facility] (test ignx=0636) [facility] [address] U/S, RENAL, [id number] 22:23:00Reason for exam:->akiFINAL REPORT U/S, RENAL, COMPLETE [...] MDReport Verified Date/Time: 01/30/2017 22:23:06 Reading Location: [address] Ortho Consult Reading Room Electronically signed by: SARIAH BARRIOS MD on 2016 10:23 PMSODIUM, RANDOM [id number] 20:40:00 Test Item Value Reference Range Comments SODIUM URINE (BEAKER) (test hzvo=428) < meq/L Reference Range: No NormalsEOSINOPHIL SMEAR, [id number] 20:40:00 Test Item Value Reference Range Comments EOSINOPHIL SMEAR, URINE (BEAKER) (test No EOS seen No EOS seen vuvb=8524) CREATININE, RANDOM [id number] 20:24:00 Test Item Value Reference Range Comments CREATININE URINE (BEAKER) (test ysnh=776) 113.2 mg/dL Reference Range: No NormalsMICROALBUMIN, RANDOM [id number] 20:24:00 Test Item Value Reference Range Comments MICROALBUMIN URINE (BEAKER) (test hsdt=4147) 4.2 mg/dL Reference Range: No NormalsURINALYSIS W/ [id number] 20:14:00 Test Item Value Reference Range Comments COLOR (BEAKER) (test awxb=379) Yellow CLARITY (BEAKER) (test rldx=184) Hazy SPECIFIC GRAVITY UA (BEAKER) (test yhjb=246) 1.013 1.001-1.035 PH UA (BEAKER) (test zifn=564) 5.0 5.0-8.0 PROTEIN UA (BEAKER) (test pbze=263) 20 mg/dL Negative GLUCOSE UA (BEAKER) (test arnl=699) 30 mg/dL Negative KETONES UA (BEAKER) (test bgyt=807) Negative Negative BILIRUBIN UA (BEAKER) (test qdca=306) Negative Negative BLOOD UA (BEAKER) (test btri=122) Negative Negative NITRITE UA (BEAKER) (test xghb=441) Negative Negative LEUKOCYTE ESTERASE UA (BEAKER) (test vhzm=663) Moderate Negative UROBILINOGEN UA (BEAKER) (test gczn=624) 0.2 mg/dL 0.2-1.0 RBC UA (BEAKER) (test hfdw=286) 1 /HPF WBC UA (BEAKER) (test xpyj=633) 5 /HPF MUCUS (BEAKER) (test kbqf=3140) Rare SQUAMOUS EPITHELIAL (BEAKER) (test ovvh=134) 1 /HPF SOURCE(BEAKER) (test dviq=9210) Urine, Voided POCT-GLUCOSE [id number] 18:25:00 Test Item Value Reference Range Comments POC-GLUCOSE METER (BEAKER) 230 mg/dL 70-110 TESTED AT [address] (test ituc=8990) [facility] [address] POCT-GLUCOSE [id number] 13:49:00 Test Item Value Reference Range Comments POC-GLUCOSE METER (BEAKER) 267 mg/dL 70-110 TESTED AT [address] (test nava=5290) [facility] [address] HEMOGLOBIN [id number] 11:50:00 Test Item Value Reference Range Comments HEMOGLOBIN A1C (BEAKER) (test nbgg=885) 10.7 % 4.3-6.1 TROPONIN [id number] 11:42:00 Test Item Value Reference Range Comments TROPONIN I (BEAKER) (test fryt=450) 0.02 ng/mL 0.00-0.03 Troponin I (TnI) levels [...] acidosis, acute neurological disease, and persistent tachyarrhythmia.POCT-GLUCOSE [id number] 09:41:00 Test Item Value Reference Range Comments POC-GLUCOSE METER (BEAKER) 228 mg/dL 70-110 TESTED AT [facility] [address] [facility] (test wfbg=5971) [facility] [address] RAD, CHEST, 1 VIEW, NON [id number] 07:41:00Reason for exam:->eval pneumoniaShould this be performed [...] represent atelectasis or pneumonitis. Signed: Zuleima Graff [facility] Verified Date/Time: 01/30/2017 07:41:41 ReadingLocation: [facility] B1 C013T Transitional Reading Room [id number] 02:54:00 Test Item Value Reference Range Comments MAGNESIUM (BEAKER) (test zpuv=578) 1.6 mg/dL 1.6-2.6 BASIC METABOLIC [id number] 02:54:00 Test Item Value Reference Range Comments SODIUM (BEAKER) (test 137 meq/L 136-145 yndp=612) POTASSIUM (BEAKER) (test 3.8 meq/L 3.5-5.1 idzd=015) CHLORIDE (BEAKER) (test 104 meq/L 98-107 serb=501) CO2 (BEAKER) (test 19 meq/L 22-29 bwjg=552) BLOOD UREA NITROGEN 48 mg/dL 7-21 (BEAKER) (test gwst=669) CREATININE (BEAKER) (test 1.76 mg/dL 0.57-1.25 xpsy=510) GLUCOSE RANDOM (BEAKER) 217 mg/dL 70-105 (test pvje=901) CALCIUM (BEAKER) (test 8.9 mg/dL 8.4-10.2 vxju=718) EGFR (BEAKER) (test 38 mL/min/1.73 sq m ESTIMATED GFR IS NOT agxq=3170) ACCURATE CREATININE CLEARANCE IN PREDICTING GLOMERULAR FILTRATION RATE. ESTIMATED GFR IS NOT APPLICABLE FOR DIALYSIS PATIENTS. RAPID INFLUENZA A&B [id number] 02:41:00 Test Item Value Reference Range Comments RAPID INFLUENZA A AG (BEAKER) (test Negative Negative, Inconclusive sctx=7902) RAPID INFLUENZA B AG (BEAKER) (test Negative Negative, Inconclusive fxul=5281) CBC W/PLT COUNT & AUTO [id number] 02:07:00 Test Item Value Reference Range Comments WHITE BLOOD CELL COUNT (BEAKER) (test rnrp=995) 10.6 K/ L 3.5-10.5 RED BLOOD CELL COUNT (BEAKER) (test rxxb=382) 4.75 M/ L 4.63-6.08 HEMOGLOBIN (BEAKER) (test spdy=041) 13.2 GM/DL 13.7-17.5 HEMATOCRIT (BEAKER) (test ujal=306) 42.4 % 40.1-51.0 MEAN CORPUSCULAR VOLUME (BEAKER) (test gazx=294) 89.3 fL 79.0-92.2 MEAN CORPUSCULAR HEMOGLOBIN (BEAKER) (test 27.8 pg 25.7-32.2 affh=251) MEAN CORPUSCULAR HEMOGLOBIN CONC (BEAKER) (test 31.1 GM/DL 32.3-36.5 wfqd=527) RED CELL DISTRIBUTION WIDTH (BEAKER) (test 16.8 % 11.6-14.4 mvsf=858) PLATELET COUNT (BEAKER) (test qkkh=033) 202 K/CU MM 150-450 MEAN PLATELET VOLUME (BEAKER) (test hjhs=890) 10.7 fL 9.4-12.4 NUCLEATED RED BLOOD CELLS (BEAKER) (test 0 /100 WBC 0-0 fvla=045) NEUTROPHILS RELATIVE PERCENT (BEAKER) (test 63 % pelv=588) LYMPHOCYTES RELATIVE PERCENT (BEAKER) (test 17 % jsji=375) MONOCYTES RELATIVE PERCENT (BEAKER) (test 18 % xryo=147) EOSINOPHILS RELATIVE PERCENT (BEAKER) (test 1 % zhwq=502) BASOPHILS RELATIVE PERCENT (BEAKER) (test 0 % wony=296) NEUTROPHILS ABSOLUTE COUNT (BEAKER) (test 6.60 K/ L 1.78-5.38 vdeq=302) LYMPHOCYTES ABSOLUTE COUNT (BEAKER) (test 1.82 K/ L 1.32-3.57 qiie=028) MONOCYTES ABSOLUTE COUNT (BEAKER) (test 1.94 K/ L 0.30-0.82 hzue=778) EOSINOPHILS ABSOLUTE COUNT (BEAKER) (test 0.10 K/ L 0.04-0.54 vhue=139) BASOPHILS ABSOLUTE COUNT (BEAKER) (test 0.02 K/ L 0.01-0.08 ximz=067) IMMATURE GRANULOCYTES-RELATIVE PERCENT (BEAKER) 1 % 0-1 (test agsg=9123) POCT-GLUCOSE [id number] 23:18:00 Test Item Value Reference Range Comments POC-GLUCOSE METER (BEAKER) 230 mg/dL 70-110 TESTED AT [facility] [address] [facility] (test ahnw=4491) [facility] [address]
--- NOTE | 2017-10-18 22:36 | ER ---
Nurse's Notes [facility] Name: Ely Coley Age: 72 yrs Sex: Male : 1945 Arrival Date: 10/18/2017 Time: 21:21 Bed 13 Private MD: Jean Carlos Velásquez E Diagnosis: Cellulitis and acute lymphangitis of other parts of limb;Low back pain;Elevated white blood cell count;Anemia, unspecified;Type 2 diabetes mellitus Presentation: 10/18 21:44 Presenting complaint: Patient states: Pt complaining of pain to lower back states "this ea evening my back locked up getting out of bed", reports swelling and pain to right inner thigh. Transition of care: patient was not received from another setting of care. Onset of symptoms was October 18, 2017. Risk Assessment: Do you want to hurt yourself or someone else? Patient reports no desire to harm self or others. Initial Sepsis Screen: Does the patient meet any 2 criteria? No. Patient's initial sepsis screen is negative. Does the patient have a suspected source of infection? No. Patient's initial sepsis screen is negative. Care prior to arrival: None. 21:44 Method Of Arrival: Wheelchair ea 21:44 Acuity: MITCH 3 ea Triage Assessment: 21:51 General: Appears in no apparent distress. Behavior is. General: Appears uncomfortable, ea Behavior is calm, cooperative, appropriate for age. Pain: Complains of pain in lumbar area and sacrum Pain currently is 8 out of 10 on a pain scale. Quality of pain is described as aching, Pain began at around 2 pm Is continuous. EENT: No signs and/or symptoms were reported regarding the EENT system. Neuro: Level of Consciousness is awake, alert, obeys commands, Oriented to person, place, time, situation. Cardiovascular: Heart tones S1 S2 present Patient's skin is warm and dry. Respiratory: Airway is patent Respiratory effort is even, unlabored, Respiratory pattern is regular, symmetrical, Breath sounds are clear bilaterally. GI: Abdomen is non-distended, Bowel sounds present X 4 quads. : No signs and/or symptoms were reported regarding the genitourinary system. Derm: Skin is pink, warm \\T\\ dry. Musculoskeletal: Circulation, motion, and sensation intact. Reports pain in lumbar area and sacrum. 21:51 Derm: Redness, swelling and warmth to right upper and lower extremity. Patient reports ea pain to area, states he noticed area this AM. Historical: - Allergies: 21:51 steroids; ea - Home Meds: 21:51 glipizide 10 mg Oral tab 1 tab 2 times per day [Active]; Amiodarone Oral [Active]; ea Eliquis 2.5 mg oral tab 1 tab 2 times per day [Active]; Furosemide Oral [Active]; Humulin 70/30 subcutaneous Sub-Q [Active]; - PMHx: 21:51 Atrial Fib; CVA; Diabetes - NIDDM; ea - PSHx: 21:51 pace maker; Knee surgery; ea - Immunization history:: Adult Immunizations up to date. - Social history:: Smoking status: Patient/guardian denies using tobacco. - Ebola Screening: : No symptoms or risks identified at this time. - Family history:: not pertinent. Screenin:54 Abuse screen: Denies threats or abuse. Nutritional screening: No deficits noted. ea Tuberculosis screening: No symptoms or risk factors identified. Fall Risk None identified. Assessment: 22:30 Reassessment: Patient and/or family updated on plan of care and expected duration. Pain ea level reassessed. Patient is alert, oriented x 3, equal unlabored respirations, skin warm/dry/pink. 22:55 Neuro: Level of Consciousness is awake, alert, obeys commands, Oriented to person, ea place, time, situation. 23:55 Reassessment: Patient and/or family updated on plan of care and expected duration. Pain ea level reassessed. Patient is alert, oriented x 3, equal unlabored respirations, skin warm/dry/pink. 10/19 00:32 Reassessment: Patient and/or family updated on plan of care and expected duration. Pain ea level reassessed. Patient is alert, oriented x 3, equal unlabored respirations, skin warm/dry/pink. 01:14 Reassessment: Patient and/or family updated on plan of care and expected duration. Pain ea level reassessed. Patient is alert, oriented x 3, equal unlabored respirations, skin warm/dry/pink. Report called to Dulce Maria ROPER Patient states feeling better. Vital Signs: 10/18 21:55 BP 114 / 54; Pulse 59; Resp 18; Temp 98.5(O); Pulse Ox 97% on R/A; Weight 102.97 kg; ea Height 6 ft. 2 in. (187.96 cm); Pain 7/10; 22:00 BP 106 / 51; Pulse 60; Resp 18; Pulse Ox 97% on R/A; ea 23:55 BP 113 / 66; Pulse 60; Resp 18; Pulse Ox 97% on R/A; Pain 3/10; ea 10/19 00:30 BP 104 / 54; Pulse 60; Resp 18; Temp 98; Pulse Ox 99% ; Pain 0/10; ea 10/18 21:55 Body Mass Index 29.14 (102.97 kg, 187.96 cm) ea ED Course: 10/18 21:21 Patient arrived in ED. am2 21:21 Jean Carlos Velásquez MD is Private Physician. am2 21:44 Karen Em, RN is Primary Nurse. ea 21:46 Triage completed. ea 21:56 Arm band placed on right wrist. Patient placed in an exam room, on a stretcher, on ea pulse oximetry. 21:56 Patient has correct armband on for positive identification. Placed in gown. Bed in low ea position. Call light in reach. Side rails up X2. 22:19 Derrick Jansen MD is Attending Physician. [facility] 22:[address] jg6 22:33 Leigh Ann Morris MD is Hospitalizing Provider. [facility] 22:35 X-ray completed. Portable x-ray completed in exam room. Patient tolerated procedure az well. 22:38 XRAY Chest (1 view) In Process Unspecified. EDNC 22:46 CT completed. Patient tolerated procedure well. Patient taken to ultrasound. 2 23:51 Inserted saline lock: 20 gauge in left forearm, using aseptic technique. cc 10/19 00:32 No provider procedures requiring assistance completed. Patient admitted, IV remains in ea place. 01:08 CT Lumbar Spine Wo Con Sent. bb 01:08 US Extremity Venous W Compression Kennedy Sent. bb 01:22 Primary Nurse role handed off by Karen Em, JUDSON rg2 Administered Medications: 10/18 22:50 Drug: Zosyn 3.375 grams Route: IVPB; Infused Over: 60 mins; Site: right forearm; ea 10/19 01:00 Follow up: Response: No adverse reaction; IV Status: Completed infusion ea 10/18 23:40 Drug: NS 0.9% 1000 ml Route: IV; Rate: 125 ml/hr; Site: left forearm; ea 10/19 00:36 Follow up: Response: No adverse reaction; IV Status: Infusion continued upon admission ea 10/18 23:41 Drug: Zofran 4 mg Route: IVP; Site: left forearm; ea 10/19 00:51 Follow up: Response: No adverse reaction; Marked relief of symptoms ea 10/18 23:42 Drug: fentaNYL (PF) 25 mcg Route: IVP; Site: left forearm; ea 10/19 00:51 Follow up: Response: No adverse reaction; Pain is decreased ea 01:05 Drug: vancoMYCIN 1 grams Route: IVPB; Infused Over: 2 hrs; Site: left forearm; ea 01:10 Follow up: Response: No adverse reaction; IV Status: Infusion continued upon admission ea Outcome: 10/18 22:35 Decision to Hospitalize by Provider. kanchan 23:00 Instructed on the need for admit. ea 10/19 01:13 Admitted to Med/surg accompanied by tech, room 218, with chart, Report called to Dulce Maria rai RN Condition: stable 01:14 Patient left the ED. ea 01:23 Patient left the ED. rg2 Signatures: Dispatcher [employer] EDMS Mason Vinson rg2 Derrick Jansen MD MD cha Ballard, Brenda, RN RN Edwige Palma Amanda am2 Blanca Modi 2 Karen Em RN RN ea Zavala, Araceli az Garcia, Jessica jg6
--- NOTE | 2017-10-18 22:36 | EDPHYS ---
Physician Documentation [facility] Name: Ely Coley Age: 72 yrs Sex: Male : 1945 Arrival Date: 10/18/2017 Time: 21:21 Bed 13 Private MD: Jean Carlos Velásquez E ED Physician Derrick Jansen HPI: 10/18 22:27 This 72 yrs old Male presents to ER via Wheelchair with complaints of Back kanchan Pain. 22:27 The patient presents with pain that is acute. The symptoms are located in the low back. kanchan Onset: The symptoms/episode began/occurred just prior to arrival. The pain does not radiate. Associated signs and symptoms: The patient has no apparent associated signs or symptoms. Modifying factors: The patient symptoms are alleviated by nothing, the patient symptoms are aggravated by nothing. Severity of symptoms: At their worst the symptoms were mild, moderate, in the emergency department the symptoms are unchanged. The patient has not experienced similar symptoms in the past. Historical: - Allergies: 21:51 steroids; ea - Home Meds: 21:51 glipizide 10 mg Oral tab 1 tab 2 times per day [Active]; Amiodarone Oral [Active]; ea Eliquis 2.5 mg oral tab 1 tab 2 times per day [Active]; Furosemide Oral [Active]; Humulin 70/30 subcutaneous Sub-Q [Active]; - PMHx: 21:51 Atrial Fib; CVA; Diabetes - NIDDM; ea - PSHx: 21:51 pace maker; Knee surgery; ea - Immunization history:: Adult Immunizations up to date. - Social history:: Smoking status: Patient/guardian denies using tobacco. - Ebola Screening: : No symptoms or risks identified at this time. - Family history:: not pertinent. ROS: 22:27 Constitutional: Negative for fever, chills, and weight loss, Eyes: Negative for injury, kanchan pain, redness, and discharge, ENT: Negative for injury, pain, and discharge, Neck: Negative for injury, pain, and swelling, Cardiovascular: Negative for chest pain, palpitations, and edema, Respiratory: Negative for shortness of breath, cough, wheezing, and pleuritic chest pain, Abdomen/GI: Negative for abdominal pain, nausea, vomiting, diarrhea, and constipation, : Negative for injury, bleeding, discharge, and swelling, MS/Extremity: Negative for injury and deformity, Skin: Negative for injury, rash, and discoloration, Neuro: Negative for headache, weakness, numbness, tingling, and seizure, Psych: Negative for depression, anxiety, suicide ideation, homicidal ideation, and hallucinations, Allergy/Immunology: Negative for hives, rash, and allergies, Endocrine: Negative for neck swelling, polydipsia, polyuria, polyphagia, and marked weight changes. 22:27 Back: Positive for decreased range of motion, pain at rest, pain with movement, of the lumbar area. Exam: 22:27 Constitutional: This is a well developed, well nourished patient who is awake, alert, kanchan and in no acute distress. Head/Face: Normocephalic, atraumatic. Eyes: Pupils equal round and reactive to light, extra-ocular motions intact. Lids and lashes normal. Conjunctiva and sclera are non-icteric and not injected. Cornea within normal limits. Periorbital areas with no swelling, redness, or edema. ENT: Nares patent. No nasal discharge, no septal abnormalities noted. Tympanic membranes are normal and external auditory canals are clear. Oropharynx with no redness, swelling, or masses, exudates, or evidence of obstruction, uvula midline. Mucous membranes moist. Neck: Trachea midline, no thyromegaly or masses palpated, and no cervical lymphadenopathy. Supple, full range of motion without nuchal rigidity, or vertebral point tenderness. No Meningismus. Chest/axilla: Normal chest wall appearance and motion. Nontender with no deformity. No lesions are appreciated. Cardiovascular: Regular rate and rhythm with a normal S1 and S2. No gallops, murmurs, or rubs. Normal PMI, no JVD. No pulse deficits. Respiratory: Lungs have equal breath sounds bilaterally, clear to auscultation and percussion. No rales, rhonchi or wheezes noted. No increased work of breathing, no retractions or nasal flaring. Abdomen/GI: Soft, non-tender, with normal bowel sounds. No distension or tympany. No guarding or rebound. No evidence of tenderness throughout. Male : Normal genitalia with no discharge or lesions. Skin: Warm, dry with normal turgor. Normal color with no rashes, no lesions, and no evidence of cellulitis. Neuro: Awake and alert, GCS 15, oriented to person, place, time, and situation. Cranial nerves II-XII grossly intact. Motor strength 5/5 in all extremities. Sensory grossly intact. Cerebellar exam normal. Normal gait. Psych: Awake, alert, with orientation to person, place and time. Behavior, mood, and affect are within normal limits. 22:27 Back: pain, that is mild, that is moderate, ROM is painful, normal spinal alignment noted, CVA tenderness, is absent, vertebral tenderness, is not appreciated. Vital Signs: 21:55 BP 114 / 54; Pulse 59; Resp 18; Temp 98.5(O); Pulse Ox 97% on R/A; Weight 102.97 kg; ea Height 6 ft. 2 in. (187.96 cm); Pain 7/10; 22:00 BP 106 / 51; Pulse 60; Resp 18; Pulse Ox 97% on R/A; ea 23:55 BP 113 / 66; Pulse 60; Resp 18; Pulse Ox 97% on R/A; Pain 3/10; ea 10/19 00:30 BP 104 / 54; Pulse 60; Resp 18; Temp 98; Pulse Ox 99% ; Pain 0/10; ea 10/18 21:55 Body Mass Index 29.14 (102.97 kg, 187.96 cm) ea MDM: 10/18 22:19 Patient medically screened. [facility] 22:27 Data reviewed: vital signs, nurses notes, lab test result(s), EKG, radiologic studies, [facility] CT scan, doppler, plain films. 10/18 22:27 Order name: Basic Metabolic Panel; Complete Time: : [facility] 10/18 21:27 Order name: CBC with Diff; Complete Time: : [facility] 10/18 21:27 Order name: Ckmb; Complete Time: : [facility] 10/18 21:27 Order name: CPK; Complete Time: : [facility] 10/18 21: Order name: LFT's; Complete Time: : [facility] 10/18 21: Order name: Magnesium; Complete Time: : [facility] 10/18 21:27 Order name: NT PRO-BNP; Complete Time: 01: [facility] 10/18 21:27 Order name: PT-INR; Complete Time: : [facility] 10/18 21: Order name: Ptt, Activated; Complete Time: 01: [facility] 10/18 22:27 Order name: Troponin (emerg Dept Use Only); Complete Time: 01:02 [facility] 10/18 22:27 Order name: Blood Culture Adult (2) [facility] 10/18 22:27 Order name: Urine Culture [facility] 10/19 00:59 Order name: Manual Differential; Complete Time: 01:02 EDMS 10/19 01:23 Order name: Urine Dipstick--Ancillary (enter results) rg2 10/18 22:27 Order name: XRAY Chest (1 view) [facility] 10/18 22:27 Order name: EKG; Complete Time: 22:28 [facility] 10/18 22:27 Order name: Cardiac monitoring; Complete Time: 23:49 [facility] 10/18 22:27 Order name: EKG - Nurse/Tech; Complete Time: 23:50 [facility] 10/18 22:27 Order name: IV Saline Lock; Complete Time: 23:50 [facility] 10/18 22:27 Order name: Labs collected and sent; Complete Time: 23:51 [facility] 10/18 22:27 Order name: O2 Per Protocol; Complete Time: 23:51 [facility] 10/18 22:27 Order name: O2 Sat Monitoring; Complete Time: 23:51 [facility] 10/18 22:27 Order name: US Extremity Venous W Compression Kennedy [facility] 10/18 22:27 Order name: CT Lumbar Spine Wo Con [facility] Administered Medications: 22:50 Drug: Zosyn 3.375 grams Route: IVPB; Infused Over: 60 mins; Site: right forearm; ea 10/19 01:00 Follow up: Response: No adverse reaction; IV Status: Completed infusion 10/18 23:40 Drug: NS 0.9% 1000 ml Route: IV; Rate: 125 ml/hr; Site: left forearm; ea 10/19 00:36 Follow up: Response: No adverse reaction; IV Status: Infusion continued upon admission 10/18 23:41 Drug: Zofran 4 mg Route: IVP; Site: left forearm; ea 10/19 00:51 Follow up: Response: No adverse reaction; Marked relief of symptoms 10/18 23:42 Drug: fentaNYL (PF) 25 mcg Route: IVP; Site: left forearm; ea 10/19 00:51 Follow up: Response: No adverse reaction; Pain is decreased ea 01:05 Drug: vancoMYCIN 1 grams Route: IVPB; Infused Over: 2 hrs; Site: left forearm; ea 01:10 Follow up: Response: No adverse reaction; IV Status: Infusion continued upon admission ea Disposition: 10/18/17 22:35 Hospitalization ordered by Leigh Ann Morris for Inpatient Admission. Preliminary diagnosis are Cellulitis and acute lymphangitis of other parts of limb, Low back pain, Elevated white blood cell count, Anemia, unspecified, Type 2 diabetes mellitus. - Bed requested for Telemetry/MedSurg (Inpatient). - Status is Inpatient Admission. rg2 - Condition is Fair. - Problem is new. - Symptoms have improved. UTI on Admission? No Signatures: Dispatcher [employer] EDMS Mason Vinson rg2 Derrick Jansen MD MD cha Antunez, Elena RN JUDSON rai Corrections: (The following items were deleted from the chart) 10/18 23:02 22:35 Hospitalization Ordered by Leigh Ann Morris MD for Inpatient Admission. Preliminary rg2 diagnosis is Cellulitis and acute lymphangitis of other parts of limb; Low back pain. Bed requested for Telemetry/MedSurg (Inpatient). Status is Inpatient Admission. Condition is Fair. Problem is new. Symptoms have improved. UTI on Admission? No. kanchan 10/19 01:04 10/18 23:02 10/18/2017 22:35 Hospitalization Ordered by Leigh Ann Morris MD for Inpatient kanchan Admission. Preliminary diagnosis is Cellulitis and acute lymphangitis of other parts of limb; Low back pain. Bed requested for Telemetry/MedSurg (Inpatient). Status is Inpatient Admission. Condition is Fair. Problem is new. Symptoms have improved. UTI on Admission? No. rg2 10/19 01:14 01:04 10/18/2017 22:35 Hospitalization Ordered by Leigh Ann Morris MD for Inpatient ea Admission. Preliminary diagnosis is Cellulitis and acute lymphangitis of other parts of limb; Low back pain; Elevated white blood cell count; Anemia, unspecified; Type 2 diabetes mellitus. Bed requested for Telemetry/MedSurg (Inpatient). Status is Inpatient Admission. Condition is Fair. Problem is new. Symptoms have improved. UTI on Admission? No. kanchan 01:23 01:14 10/18/2017 22:35 Hospitalization Ordered by Leigh Ann Morris MD for Inpatient rg2 Admission. Preliminary diagnosis is Cellulitis and acute lymphangitis of other parts of limb; Low back pain; Elevated white blood cell count; Anemia, unspecified; Type 2 diabetes mellitus. Bed requested for Telemetry/MedSurg (Inpatient). Status is Inpatient Admission. Condition is Fair. Problem is new. Symptoms have improved. UTI on Admission? No. ea
[2017-10-18] MEDS ORDERED: FENTANYL CITR 100 MCG/2 ML ONE (22:39)
[2017-10-18] MEDS ORDERED: VANCOMYCIN 1 GM/250 ML BAG ONE (22:40)
[2017-10-18] MEDS ORDERED: NA CHLORIDE 0.9% 1,000 ML ONE (22:40)
[2017-10-18] MEDS ORDERED: PIPER/TAZO/NS 3.375gm 3.375 GM/100 ML BAG ONE (22:40)
[2017-10-18] MEDS ORDERED: ONDANSETRON 4 MG/2 ML VIAL ONE (22:40)
[2017-10-19 00:03] LABS: Absolute Monocytes 3.1 K/uL (0.1-1.3); Absolute Neutrophil 11.7 K/uL (1.8-8.0); Basophils % 0.2 % (0-1.3); Eosinophils % 0.1 % (0-4.4); Hematocrit 37.2 % (39.6-49.0); Lymphocytes % 16.9 % (15.3-44.8); MCH 32.7 pg (27.0-35.0); MCV 95.1 fL (80-100); MPV 8.4 fL (7.6-11.3); Monocytes % 17.2 % (3.3-12.3); RBC Red Blood Cell Count 3.91 M/uL (4.33-5.43)
[2017-10-19 00:25] LABS: Protime INR 1.75
[2017-10-19 00:41] LABS: ALT/SGPT 16 U/L (12-78); AST/SGOT 10 U/L (15-37); Albumin 3.1 g/dL (3.4-5.0); Alkaline Phosphatase 88 U/L (45-117); BUN Blood Urea Nitrogen 36 mg/dL (7-18); Bicarbonate 28 mmol/L (21-32); Bilirubin Direct 0.5 mg/dL (0-0.2); Bilirubin Total 1.2 mg/dL (0.2-1.0); CKMB Creatine Kinase MB < 1.0 ng/mL (0.3-3.6); Creatine Phosphokinase 55 U/L (39-308); Glucose Level 203 mg/dL (74-106); Magnesium 1.8 mg/dL (1.8-2.4); NT PRO-BNP 3106 pg/mL (<125); Potassium 3.7 mmol/L (3.5-5.1); Protein, Total 7.6 g/dL (6.4-8.2); Sodium Level 136 mmol/L (136-145); Troponin (Emerg Dept Use Only) < 0.02 ng/mL (0.0-0.045)
[2017-10-19 00:59] LABS: Blood Morphology Comment NOT SEEN (NOT SEEN); Platelet Estimate ADEQ
[2017-10-19] MEDS ORDERED: VANCOMYCIN/NS 1 gm 1 GM/250 ML BAG IVPB ONE (02:45)
[2017-10-19 02:55] LABS: Urine Blood NEGATIVE (NEG); Urine Glucose NEGATIVE (NEG); Urine Protein NEGATIVE (NEG)
[2017-10-19] MEDS ORDERED: AMPICILLIN/SULBACTAM 3GM/VIAL ONE (05:46)
[2017-10-19] MEDS ORDERED: NA CHLORIDE 0.9% 100 ML ONE (05:50)
[2017-10-19] MEDS: AMPICILLIN/SULBACT 3 GM in NA CHLORIDE 0.9% 100 ML IVPB SCH ×4 (05:57→17:00)
[2017-10-19] MEDS: METOPROLOL TAR 25 MG TAB PO SCH ×2 (05:59→17:55)
[2017-10-19] MEDS: PANTOPRAZOLE 40MG TABLET PO SCH (06:00)
[2017-10-19] MEDS: INSULIN GLARGINE 100 UNITS/ML SQ SCH (08:00)
--- NOTE | 2017-10-19 08:25 | RAD REPORT ---
EXAM DESCRIPTION: US - Extrem Venous W Compress Kennedy - 10/18/2017 11:08 pm CLINICAL HISTORY: PAIN Bilateral leg edema and swelling. COMPARISON: Extrem Venous W Compress Kennedy dated 07/29/2017 TECHNIQUE: Real-time sonographic interrogation of the left and right lower extremity deep venous sys tems was performed. FINDINGS: Normal compressibility, flow augmentation, phasic flow and spontaneous flow is identified in both the left and right lower extremity deep venous systems. IMPRESSION: No sonographic evidence of left or right lower extremity deep venous thrombosis.
--- NOTE | 2017-10-19 08:36 | RAD REPORT ---
EXAM DESCRIPTION: CT - Spine Lumbar Wo Con - 10/18/2017 10:50 pm CLINICAL HISTORY: Radiculopathy. LOWER BACK PAIN COMPARISON: No comparisons TECHNIQUE: Axial noncontrast CT imaging of the lumbar spine was performed with coronal and sagittal re-formatted images. All CT scans are performed using dose optimization technique as appropriate and may include automated exposure control or mA/KV adjustment according to patient size. FINDINGS: No acute lumbar spine fracture seen. No aggressive marrow pattern or malalignment. Paraspinal tissues are normal in thickness. No paraspinal abscess or hematoma seen. Moderate lower lumbar spondylosis is present with facet hypertrophy. Central canal narrowing is likel y present. IMPRESSION: No acute lumbar spine abnormality. Moderately severe lower lumbar degenerative changes a re present. Consider MRI follow-up for assessment of disc disease if clinically desired.
--- NOTE | 2017-10-19 08:37 | P.HP ---
Certification for Inpatient Patient admitted to: Inpatient With expected LOS: >2 Midnights Patient will require the following post-hospital care: None Practitioner: I am a practitioner with admitting privileges, knowledge of patient current condition, hospital course, and medical plan of care. Services: Services provided to patient in accordance with Admission requirements found in Title 42 Section 412.3 of the Code of Federal Regulations Patient History Date of Service: 10/18/17 Reason for admission: Right lower extremity cellulitis; low back pain History of Present Illness: Patient is a 72-year-old gentleman who came into the hospital with complaints of low back pain. The pain was severe any described it as being a 8 to 9/10. The was no radiation of the pain. The pain gradually worsened throughout the day. He appeared to be having severe pain like he was some Ramirez down. He was also found have erythema of the right lower extremity. He has cellulitis of the right lower extremity any was started on IV antibiotics. Patient was admitted to the hospital for further evaluation. He will need IV antibiotic therapy pain control and anti-inflammatories for his lower back as well. Allergies steroids Allergy (Unknown, Uncoded 10/19/17 02:14) Unknown - Past Medical/Surgical History Has patient received pneumonia vaccine in the past: No Diabetic: Yes -: History CVA -: Atrial fibrillation -: DM -: HTN -: History of blood clot in the right arm -: GERD -: Moderate pulmonary hypertension -: CHF, diastolic dysfunction -: R. total knee replacement -: kristian. cataract sx -: Right thigh staph inf. -: L. big toe amputated -: Back sx Psychosocial/ Personal History: The patient is . - Family History Mother Medical History: Heart disease Father Medical History: Heart disease Brother Medical History: Heart disease, Hypertension, Diabetes, Cancer - Social History Smoking Status: Former smoker Alcohol use: No CD- Drugs: No Caffeine use: Yes Place of Residence: Home Review of Systems 10-point ROS is otherwise unremarkable Physical Examination - Vital Signs Temperature: 98.1 F Blood Pressure: 115/56 Pulse: 60 Respirations: 16 Pulse Ox (%): 97 - Physical Exam General: Alert, In no apparent distress, Oriented x3 HEENT: Atraumatic, PERRLA, Mucous membr. moist/pink, EOMI, Sclerae nonicteric Neck: Supple, 2+ carotid pulse no bruit, No LAD, Without JVD or thyroid abnormality Respiratory: Diminished, Crackles/rales Cardiovascular: Regular rate/rhythm, Normal S1 S2, Systolic murmur Gastrointestinal: Normal bowel sounds, Soft and benign, Non-distended, No tenderness Musculoskeletal: No clubbing, No swelling, No tenderness Integumentary: Skin lesion, Tenderness/swelling, Erythema, Warmth Neurological: Normal gait, Normal speech, Normal tone, Sensation intact, Cranial nerves 3-12 intact, Normal affect, Abnormal strength Lymphatics: No axilla or inguinal lymphadenopathy Assessment & Plan - Plan Assessment: 1. Right lower extremity cellulitis 2. Chronic low back pain 3. AFib with RVR 4. CHF systolic dysfunction 5. History of hypertension 6. History of diabetes 7. History of pulmonary hypertension Plan: 1. Continue with IV antibiotic 2. Continue with local wound care 3. Surgical consultation 4. Gentle IV hydration 5. Monitor CBC 6. Strict blood sugar and blood pressure monitoring 7. Pain control 8. Medication for rate control and resume anti coagulation; continue to diurese gently 9. Outpatient echocardiogram in 6 months 11. GI and DVT prophylaxis Discharge Plan: Home Plan to discharge in: Greater than 2 days - Advance Directives Does patient have a Living Will: No Does patient have a Durable POA for Healthcare: No - Code Status/Comfort Care Code Status Assessed: Yes Code Status: Full Code Critical Care: No Time Spent Managing PTS Care (In Minutes): 50
--- NOTE | 2017-10-19 08:40 | RAD REPORT ---
EXAM DESCRIPTION: RAD - Chest Single View - 10/18/2017 10:37 pm CLINICAL HISTORY: COUGH Chest pain. COMPARISON: Chest Single View dated 01/29/2017; Chest Pa And Lat (2 Views) dated 01/07/2017; Chest S jeremiah View dated 01/06/2017; Chest Single View dated 07/29/2016 FINDINGS: Portable technique limits examination quality. The lungs are grossly clear. The heart is mildly prominent size with dual lead pacer device present. No displaced fractures. IMPRESSION: No acute intrathoracic process suspected.
[2017-10-19] MEDS ORDERED: VANCOMYCIN 1.25 GM in NA CHLORIDE 0.9% 250 ML IVPB SCH (09:00)
[2017-10-19] MEDS ORDERED: predniSONE 10 MG TAB PO SCH (09:00)
[2017-10-19] MEDS ORDERED: VALSARTAN 160 MG TAB PO SCH (09:00)
[2017-10-19] MEDS ORDERED: NA CHLORIDE 0.9% 1,000 ML IV SCH (09:00)
[2017-10-19] MEDS ORDERED: BUMETANIDE 1 MG TABLET PO SCH (09:00)
[2017-10-19] MEDS ORDERED: DABIGATRAN 150 MG CAP PO SCH (09:00)
[2017-10-19] MEDS: VALSARTAN 80 MG TAB PO SCH (09:49)
[2017-10-19] MEDS: SPIRONOLACTONE 25 MG TABLET PO SCH (09:49)
--- NOTE | 2017-10-19 11:02 | EKG ---
Test Date: 2017-10-18 Test Time: 23:24:01 Golf Coach: ARSALAN MEASUREMENT RESULTS: Intervals: Rate: 60 DC: 262 QRSD: 120 QT: 510 QTc: 510 [place]: P: DC: 262 QRS: -3 T: 8 INTERPRETIVE STATEMENTS: Atrial-paced rhythm with prolonged AV conduction Nonspecific intraventricular conduction delay Abnormal ECG Compared to ECG 01/29/2017 15:30:39 Intraventricular conduction delay now present Atrial fibrillation no longer present ST (T wave) deviation no longer present Possible ischemia no longer present Prolonged QT interval no longer present Electronically Signed On 10-19-17 11:00:41 CDT by Laci Hernandez
[2017-10-19 11:27] LABS: Absolute Lymphocytes (CBC) 2.1 K/uL (0.7-4.9); Absolute Monocytes 2.4 K/uL (0.1-1.3); Basophils % 0.4 % (0-1.3); Hematocrit 34.1 % (39.6-49.0); MCH 32.2 pg (27.0-35.0); MCV 95.3 fL (80-100); MPV 8.2 fL (7.6-11.3); Monocytes % 20.5 % (3.3-12.3); RBC Red Blood Cell Count 3.57 M/uL (4.33-5.43)
[2017-10-19 11:58] LABS: Magnesium 1.8 mg/dL (1.8-2.4); Phosphorus 2.7 mg/dL (2.5-4.9); Potassium 3.5 mmol/L (3.5-5.1)
[2017-10-19 12:19] LABS: Blood Morphology Comment NOT SEEN (NOT SEEN); Platelet Estimate ADEQ
[2017-10-19] MEDS: APIXABAN 2.5 MG TABLET PO SCH (14:07)
[2017-10-19] MEDS: FUROSEMIDE 40 MG TABLET PO SCH (17:56)
--- NOTE | 2017-10-19 18:03 | PN ---
Date of Progress Note: 10/19/2017 Subjective: The patient is seen and examined. Chart reviewed and case discussed with RN. The patient denies any significant pain. Did report some redness and warmth on the right lower extremity. not initially present; however, spoke with her subsequent to the patient's examination. She reports that the patient had some dizziness, lightheadedness, some chest tightness a few days ago. The patient denies those symptoms at the present time. He did have some back pain yesterday and had difficulty moving. They understand that his CT shows significant amount of degenerative disk disease which is causing his pain. All questions answered. Treatment plan explained. Review of Systems: Negative except as above. Medications: List reviewed. Code Status: Full. Physical Examination: Vital Signs: Temperature 98.1, heart rate 60, blood pressure 115/56, respirations 16, O2 97% on room air. General: Awake, alert, oriented x3, not in any acute distress. Elderly male, obese, BMI 31. CV: S1, S2. Peripheral pulses present. Respiratory: Moving air well bilaterally. No wheezing. No stridor. Gastrointestinal: Abdomen is soft, nontender, nondistended. Positive bowel sounds. Extremities: No clubbing, cyanosis. The patient does have some edema, right worse than left. Skin: With lower extremity erythema, warm to touch. No significant pain on palpation. Neurologic: Nonfocal. Laboratory Data: Sodium 140, potassium 3.5, chloride 104, CO2 29, BUN 34, creatinine 1.7, glucose 152, calcium 8.1, phosphorus 2.7, magnesium 1.8. WBC 11.7, H and H 11.5 and 34.1, platelets 152, neutrophils 60%. Blood cultures pending. Urine culture pending. CT lumbar spine shows no acute lumbar spine abnormality. Fdlobkgz-ge-ulncip lower lumbar degenerative changes are present. Doppler venous study of the lower extremities does not show any evidence of DVT. Chest x-ray is clear. Assessment And Plan: A 72-year-old male with: 1. Right lower extremity cellulitis. We will continue with IV antibiotics. Follow up on cultures. 2. Chronic low back pain. CT lumbar spine shows severe degenerative disk disease. Pain medications. 3. Atrial fibrillation with rapid ventricular response, now controlled ventricular rate. We will resume home medications as appropriate. 4. Congestive heart failure, chronic with systolic dysfunction. Resume home medications as appropriate. The patient recently was doubled up on his Lasix dose and has spironolactone. 5. History of hypertension. Continue home medications. Monitor blood pressure levels. 6. History of diabetes mellitus type 2 with hyperglycemia. 7. Chronic kidney disease, stage 3. The patient sees Dr. Hall as outpatient. 8. History of pulmonary hypertension. Plan: As above. Elevate right lower extremity. Resume home medications as appropriate. ROBERTO Voice ID: [id number] Report ID: [id number]
[2017-10-19] MEDS: AMIODARONE HCL 200 MG TAB PO SCH (20:43)
--- NOTE | 2017-10-19 23:07 | RAD REPORT ---
EXAM DESCRIPTION: US - Renal Ultrasound-Complete - 10/19/2017 10:10 pm CLINICAL HISTORY: DARRELL COMPARISON: Renal Ultrasound-Complete dated 01/08/2017 FINDINGS: Both kidneys are normal in size, shape and echotexture. The right kidney measures 10.8 x 5.8 x 4.6 cm. No hydronephrosis, focal mass or perinephric fluid. The left kidney measures 10.3 x 5.0 x 4.5 cm. No hydronephrosis, focal mass or perinephric fluid. The urinary bladder is incompletely distended without gross abnormality seen. IMPRESSION: Unremarkable renal sonogram.
[2017-10-19 23:45] VITALS: O2SAT 97
[2017-10-20] MEDS: AMPICILLIN/SULBACT 3 GM in NA CHLORIDE 0.9% 100 ML IVPB SCH ×3 (00:44→17:21)
[2017-10-20 02:43] LABS: Urine Appearance CLEAR; Urine Bilirubin NEGATIVE (NEG); Urine Blood NEGATIVE (NEG); Urine Color YELLOW; Urine Glucose NEGATIVE (NEG); Urine Protein NEGATIVE (NEG); Urine pH 5.5 (5.0-7.0)
[2017-10-20 02:50] LABS: Urine Microscopic Reflex NO UMIC; Urine Protein/Creatinine Ratio 0.23 ratio (<0.15)
[2017-10-20] MEDS: PANTOPRAZOLE 40MG TABLET PO SCH (05:35)
[2017-10-20] MEDS: METOPROLOL TAR 25 MG TAB PO SCH ×2 (05:35→17:22)
[2017-10-20 06:31] LABS: Albumin 2.8 g/dL (3.4-5.0); Phosphorus 2.6 mg/dL (2.5-4.9); Potassium 3.6 mmol/L (3.5-5.1)
[2017-10-20] MEDS: INSULIN GLARGINE 100 UNITS/ML SQ SCH (08:00)
[2017-10-20] MEDS ORDERED: POLYETHYL GLY 3350 17 GM/DOSE PO PRN (08:32)
[2017-10-20] MEDS: glipiZIDE 5 MG TAB PO SCH (08:37)
[2017-10-20] MEDS: VALSARTAN 80 MG TAB PO SCH (08:37)
[2017-10-20] MEDS: FUROSEMIDE 40 MG TABLET PO SCH (08:37)
[2017-10-20] MEDS: SPIRONOLACTONE 25 MG TABLET PO SCH (08:37)
[2017-10-20] MEDS: APIXABAN 2.5 MG TABLET PO SCH ×2 (08:37→21:36)
[2017-10-20] MEDS: VANCOMYCIN 2 GM in NA CHLORIDE 0.9% 500 ML IVPB SCH (11:21)
[2017-10-20] MEDS: DOCUSATE NA 100 MG CAP PO SCH ×2 (11:22→21:36)
[2017-10-20] MEDS ORDERED: VANCOMYCIN 2 GM in NA CHLORIDE 0.9% 500 ML IVPB SCH (15:00)
[2017-10-20] MEDS ORDERED: FUROSEMIDE 20 MG TABLET PO SCH (17:00)
--- NOTE | 2017-10-20 20:08 | CON ---
Date of Consultation: 10/20/2017 Additional Consulting Physician: Dr. Boudreaux. Reason For Consultation: Elevated BUN and creatinine. 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 The patient came to the hospital because of having weakness and pain worsening lately. For that reason , he reported to the hospital. The patient was found to have elevated BUN and creatinine. For that reason, we have been consulted. The patient denied taking any nonsteroidal. No IV contrast. On presentation, the patient's creatinine was elevated to 2.1 with GFR down to 31. After hydration and stopping the Lasix, creatinine down to 1.6, GFR of 42. Reviewing the record, the patient's creatinine back in early this month was 1.3, GFR around 45. The patient denied any IV contrast. Past Medical History: Includes: 1. Hypertension. 2. Hyperlipidemia. 3. CVA. 4. Chronic kidney disease, baseline creatinine 1.3. 5. Pulmonary hypertension. 6. Congestive heart failure, diastolic dysfunction. 7. CVA without residual. 8. AFib. 9. Diabetes, complicated with neuropathy and retinopathy. Family History: Positive for hypertension, coronary artery disease. Social History: Ex-smoker. Denied alcohol. Denied drug abuse. Social history , as above. Allergies: STEROID. Review of Systems: Head and Neck: No red eye. No ear pain. GI: No nausea. Has decreased intake. : No polyuria. No dysuria. No hematuria. Layout Man: Not applicable. Respiratory: No shortness of breath. Cardiovascular: No chest pain. Neuro: Has neuropathy. Musculoskeletal: No joint pain. Endocrine: No polydipsia. Skin: No rash. Physical Examination: Vital Signs: When I saw the patient, the patient was lying in bed, comfortable , lying flat. Vital signs: Blood pressure of 145/64, pulse of 60. Afebrile. Chest: Clear to auscultation. Heart: S1, S2. Systolic murmur. Abdomen: Soft, nontender. Extremities: No edema. Vascular exam: No carotid bruit. No renal bruit. Laboratory Data: Sodium 142, potassium 3.6, bicarb 28, BUN 34, creatinine 1.6, calcium 8.8, phosphorus 2.6, albumin 2.8. WBC 11.7, H and H 11.5/34.1. Medications: Home medications include: 1. Glipizide. 2. Spironolactone. 3. Multivitamin. 4. Lasix. 5. Eliquis. 6. Amiodarone. Current medications in the hospital are Zosyn, amiodarone, Eliquis, glipizide, insulin, metoprolol, pantoprazole, spironolactone, valsartan. Diagnostic Studies: Renal ultrasound showing no obstruction Assessment And Plan: 1. Acute kidney injury, minimal proteinuria. Normal-sized kidney. Secondary to prerenal on chronic kidney disease, secondary to diabetes nephropathy. On recovery phase. I am going to go ahead and decrease IV fluid, and we will monitor the patient. If the kidney function continues to improve, the patient okay to be discharged tomorrow. 2. Hypertension, controlled, optimal. Continue current medications. 3. Congestive heart failure. Currently, normal volume. I am going to hold on IV fluid and hold on the Lasix for the time being, and we will follow up the patient. MARVIN Voice ID: [id number] Report ID: [id number]
--- NOTE | 2017-10-20 20:53 | PN ---
Date of Progress Note: 10/20/2017 Subjective: The patient seen and examined. Chart reviewed and case discussed with Dr. Hall and RN treatment plan explained. All questions answered. The patient states his leg is significantly b vish. Erythema and pain are improved. Review of Systems: Negative except as above. Medications: List reviewed. Physical Examination: Vital Signs: Temperature 97.7, heart rate 60, blood pressure 145/64, respirations 18, O2 98% on room air. General: Awake, alert, oriented x3, not in any acute distress, elderly male, obese. CV: S1, S2. No murmurs. Peripheral pulses present. Respiratory: Moving air well bilaterally. No wheezing. Gastrointestinal: Abdomen is soft, nontender, nondistended. Positive bowel sounds. Extremities: No clubbing, cyanosis. Right lower extremity edema is present. Neurologic: Nonfocal. Skin: Right lower extremity erythema significantly improved. No tenderness to palpation. Some warm to touch. Laboratory Data: Sodium 142, potassium 3.6, chloride 106, CO2 28, BUN 34, creatinine 1.6, glucose 13 7, calcium 8.8, phosphorus 2.6, albumin 2.8. WBC pending. Blood cultures, no growth to date. Urine culture, no growth to date. Renal ultrasound shows unremarkable renal sonogram. Assessment And Plan: A 72-year-old male with: 1.Right lower extremity cellulitis, improving. We will continue IV antibiotics. Cultures negative to date. 2.Chronic low back pain due to severe degenerative disk disease. Continue pain medications. 3.Atrial fibrillation with rapid ventricular response, now controlled ventricular rate. We will con tinue with home medications, rate controlled. 4.Congestive heart failure, systolic dysfunction, chronic. Monitor I's and O's. We will continue s odium restriction, adjust Lasix dose. 5.Chronic kidney disease stage 3. Creatinine improving. Appreciate Dr. Hall's input. 6.Essential hypertension, stable with home medications. 7.Diabetes with hyperglycemia. We will continue to monitor blood glucose levels. 8.History of pulmonary hypertension. Plan: Continue current treatment, likely discharge in a.m. SA/MODL Voice ID: [id number] Report ID: [id number]
[2017-10-20] MEDS: AMIODARONE HCL 200 MG TAB PO SCH (21:35)
[2017-10-21] MEDS: AMPICILLIN/SULBACT 3 GM in NA CHLORIDE 0.9% 100 ML IVPB SCH ×2 (00:55→09:00)
[2017-10-21] MEDS: METOPROLOL TAR 25 MG TAB PO SCH (05:57)
[2017-10-21] MEDS: PANTOPRAZOLE 40MG TABLET PO SCH (05:57)
[2017-10-21 06:42] LABS: Absolute Lymphocytes (CBC) 1.5 K/uL (0.7-4.9); Absolute Monocytes 1.5 K/uL (0.1-1.3); Absolute Neutrophil 4.7 K/uL (1.8-8.0); Basophils % 0.5 % (0-1.3); Eosinophils % 3.2 % (0-4.4); Hematocrit 33.2 % (39.6-49.0); Lymphocytes % 19.2 % (15.3-44.8); MCH 32.9 pg (27.0-35.0); MCV 94.3 fL (80-100); MPV 8.2 fL (7.6-11.3); Monocytes % 18.8 % (3.3-12.3); RBC Red Blood Cell Count 3.52 M/uL (4.33-5.43)
[2017-10-21 06:52] LABS: Albumin 2.8 g/dL (3.4-5.0); Bilirubin Total 0.7 mg/dL (0.2-1.0); Phosphorus 2.6 mg/dL (2.5-4.9); Potassium 3.6 mmol/L (3.5-5.1)
[2017-10-21 07:34] VITALS: BMI 30.9
[2017-10-21] MEDS: INSULIN GLARGINE 100 UNITS/ML SQ SCH (08:00)
[2017-10-21] MEDS: VALSARTAN 80 MG TAB PO SCH (09:09)
[2017-10-21] MEDS: APIXABAN 2.5 MG TABLET PO SCH (09:10)
[2017-10-21] MEDS: SPIRONOLACTONE 25 MG TABLET PO SCH (09:10)
[2017-10-21] MEDS: DOCUSATE NA 100 MG CAP PO SCH (09:10)
[2017-10-21] MEDS: glipiZIDE 5 MG TAB PO SCH (09:10)
[2017-10-21] MEDS: VANCOMYCIN 2 GM in NA CHLORIDE 0.9% 500 ML IVPB SCH (10:00)
[2017-10-21 12:32] VITALS: BP 123/58; TEMP 97.8
--- NOTE | 2017-10-22 04:24 | PN ---
Date of Progress Note: 10/21/2017 Subjective: The patient doing much better. No nausea. No vomiting. The patient's blood pressure has been stabilized. Physical Examination: Vital Signs: Blood pressure 123/58, pulse of 60. Chest: Clear to auscultation. Heart: S1, S2. Regular. Abdomen: Soft, nontender. Extremities: No edema. Laboratory Data: WBC 8.1, H and H 11.6/33.2, platelet 179. Sodium 142, potassium 3.6, bicarb 28, BUN 29, creatinine 1.2, calcium 8.1, phosphorus 2.6. Current Medications: 1. IV fluid. 2. Ampicillin. 3. Eliquis. 4. Insulin. 5. Metoprolol 12.5. 6. Pantoprazole. 7. Aldactone. 8. Valsartan. Assessment And Plan: 1. Acute kidney injury secondary to prerenal, recovered back close to baseline. 2. Hypertension, controlled, optimal. Continue current medication. Discontinue IV fluid. 3. Gastroenteritis, recovered, resolved. 4- hypoK will continue supplement 5- contractionalkalosis continue hydration MARVIN Voice ID: [id number] Report ID: [id number]
--- NOTE | 2017-10-22 16:21 | DS ---
Date of Discharge: 10/21/2017 Electric Mule Operator: Dr. Hall with Nephrology. Admitting Diagnoses: 1.Right lower extremity cellulitis. 2.Chronic low back pain. 3.Atrial fibrillation with rapid ventricular response. 4.Systolic congestive heart failure, chronic. 5.Essential hypertension. 6.History of diabetes mellitus type 2, non-insulin dependent with hyperglycemia. 7.History of pulmonary hypertension. Discharge Diagnoses: 1.Right lower extremity cellulitis, improved. Cultures negative. 2.Chronic low back pain due to severe degenerative disk disease. 3.Atrial fibrillation with controlled ventricular rate, chronic. 4.Congestive heart failure, systolic dysfunction, chronic. 5.Chronic kidney disease, stage 3. Creatinine improved. 6.Essential hypertension, stable. 7.Diabetes mellitus type 2, non-insulin requiring with hyperglycemia. 8.History of pulmonary hypertension. Hospital Course: The patient is a 72-year-old male, who came into the hospital for low back pain and right lower extremity cellulitis. The patient was started on IV antibiotics. Cultures were obtaine d, which were negative to date. Regarding his right extremity cellulitis, he did have some swelling. Ultrasound was done, which did not show any DVT in the extremity. His chest x-ray was clear off. The patient did have some elevated kidney function above his baseline, which improved with IV fluid h ydration. He was seen by coating supervisor, Dr. Hall. Kidney function essentially normalized. His w nabeel count normalized as well. He was no longer having any pain. The redness improved, cellulitis w as significantly better. He was able to ambulate, tolerating his diet. No fevers. The patient was then discharged home in a stable condition. Regarding his back pain, lumbar spine CT was done, which did show some severe lumbar degenerative changes and he will likely need an MRI as an outpatient and to followup with his primary care physician. Medications: As per medication list. Finish up course of antibiotics. His Lasix dose was decreased to 20 daily from 40 b.i.d. and metoprolol was added for his atrial fibrillation and as well as insul in. Followup: Follow up with primary care physician in 2-3 days. Follow up with coating supervisor, Dr. Clint winter in 2 weeks. Return to ER for worsening condition. Diet: Diabetic. Activity: As tolerated. Physical Examination: General: Awake, alert, oriented x3, not in any acute distress. Elderly male, obese. CV: S1, S2. No murmurs. Respiratory: Clear to auscultation bilaterally. No wheezing. Gastrointestinal: Abdomen is soft, nontender, nondistended. Positive bowel sounds. Extremities: No clubbing, cyanosis, or edema. Skin: Erythema of the right lower extremity significantly improved. Neurologic: Nonfocal. Total time spent discharging the patient was 37 minutes. /AZEB Voice ID: [id number] Report ID: [id number]
== END 2017-10-21 12:41 | disposition home or self-care (01) | DRG 603 ==
LOC: ER 21:20 → ERHOLD 22:43 → 4TH 23:17
PROVIDERS: ADMIT Hospitalist; ATTEND Hospitalist
DX: L03.115 Cellulitis of right lower limb (principal); I13.0 Hypertensive heart and chronic kidney disease with heart failure and stage 1 through stage 4 chronic kidney disease, or unspecified chronic kidney disease; I50.22 Chronic systolic (congestive) heart failure; N17.9 Acute kidney failure, unspecified; M51.36 Other intervertebral disc degeneration, lumbar region; I48.91 Unspecified atrial fibrillation; N18.3 Chronic kidney disease, stage 3 (moderate); E11.22 Type 2 diabetes mellitus with diabetic chronic kidney disease; E11.65 Type 2 diabetes mellitus with hyperglycemia; K52.9 Noninfective gastroenteritis and colitis, unspecified; Z86.73 Personal history of transient ischemic attack (TIA), and cerebral infarction without residual deficits; Z96.653 Presence of artificial knee joint, bilateral
CPT/HCPCS: 36415; 71045; 72131; 76770; 80048; 80053; 80069; 80076; 80202; 81003; 82550; 82553; 82570; 82962; 83735; 83880; 83970; 84100; 84156; 84484; 85025; 85610; 85730; 87040; 87086; 87088; 93005; 93970; 96365; 96366; 96375; 99285; J0295; J2405; J2543; J3010; J3370; J7030; J7512

== ENCOUNTER 2017-11-25 17:05 | Inpatient (IN) | payer OTHER ==
--- OUTSIDE RECORDS SUMMARY | 2017-11-25 17:07 | XMS REPORT | Clinical Summary ---
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 Atrial fibrillation ([facility]) 01/30/2017 DARRELL (acute kidney injury) ([facility]) 01/30/2017 Pneumonia 01/29/2017 Encounters Date Type Specialty Care Team Description 02/04/2017 Procedure Pass 02/04/2017 Surgery Manid Álvarez MD 01/30/2017 Orders Only General Internal Medicine 01/29/2017 - Hospital Encounter Cardiology Anabella, Pericardial 02/08/2017 MD Ameya effusion;Pneumonia America Wang, due to infectious MD organism, Nicole, unspecified liane Calvin MD unspecified part of [place], lung;Shortness of EstephaniaMD ajith breath;History of myocarditis;DARRELL (acute kidney injury) ([facility]);Permanent atrial fibrillation ([facility]);Type 2 diabetes mellitus with complication, without long-term current use of insulin ([facility]) after 11/24/2016 Family History Medical History Relation Name Comments [...] Taken Blood Pressure 111/64 02/08/2017 11:41 AM LEARNING SUPPORT TEACHER Pulse 77 02/08/2017 11:41 AM LEARNING SUPPORT TEACHER Temperature 36.3 C (97.4 F) 02/08/2017 11:41 AM LEARNING SUPPORT TEACHER Respiratory Rate 16 02/08/2017 11:41 AM LEARNING SUPPORT TEACHER Oxygen Saturation 96% 02/08/2017 11:41 AM LEARNING SUPPORT TEACHER Inhaled Oxygen Concentration - - Weight 101.7 kg (224 lb 1.6 oz) 02/08/2017 1:00 AM LEARNING SUPPORT TEACHER Height 188 cm (6' 2") 01/29/2017 10:54 PM LEARNING SUPPORT TEACHER Body Mass Index 28.77 02/08/2017 1:00 AM LEARNING SUPPORT TEACHER Plan of Treatment Not on file Procedures Procedure Name Priority Date/Time Associated Diagnosis Comments R CATH 02/04/2017 10:16 AM LEARNING SUPPORT TEACHER PULMONARY HTN Case Notes PT IS IP after 11/24/2016 Results RHYTHM STRIP - SCAN (03/02/2017 8:04 AM)Only the most recent of2 resultswithin the time period is included.POC-Glucose meter (02/08/2017 1:16 PM)Only the most recent of41 resultswithin the time period is included. Component Value Ref Range POC-Glucose Meter 270 (H)Comment: TESTED AT [address] 70 - 110 mg/[place] [address] Specimen Performing Laboratory Blood [facility] [address] [address] CBC with platelet count + automated diff [...] % Specimen Performing Laboratory Blood - Arm, [address] [address] CBC with platelet count + automated diff (02/08/2017 5:57 AM)Only the most recent of10 resultswithin the time period is included. Specimen Performing Laboratory Blood Narrative The following orders were created for panel order CBC with platelet count + automated diff. Procedure Abnormality Status --------- ------ CBC with platelet count ...[[id number]]AbnormalFinal result Please view results for these tests on the individual orders. Magnesium (02/08/2017 5:57 AM)Only the most recent of10 resultswithin the time period is included. Component Value Ref Range Magnesium 1.5 (L) 1.6 - 2.6 mg/dL Specimen Performing Laboratory Blood - Arm, [address] [address] Basic metabolic panel (02/08/2017 5:57 AM)Only the [...] Specimen Performing Laboratory Blood - Arm, Left [address] [address] CARDIAC CATH REPORT - SCAN (02/07/2017 5:00 [...] RBC Morphology Normal Specimen Performing Laboratory Blood [address] [address] XR chest 1 view portable / bedside [...] MD Report Verified Date/Time:02/05/2017 14:44:20 Reading Location: [address] Consult Reading Room Procedure Note Interface, External Ris In - 02/05/2017 2:46 PM LEARNING SUPPORT TEACHER FINAL REPORT CLINICAL HISTORY: shortness of breath s/p RHC TECHNIQUE: 1 view of the chest. COMPARISON: 01/31/2017 IMPRESSION: Trace bilateral pleural effusions are again seen with left basilar atelectasis. The cardiomediastinal silhouette is magnified by technique with a pacemaker. Signed: Barbara Pizarro MD Report Verified Date/Time: 02/05/2017 14:44:20 Reading Location: [address] Consult Reading Room Urinalysis w/Microscopic + Reflex to Culture (02/03/2017 10:04 AM) Component Value Ref Range Color, UA Yellow Clarity, UA Clear Specific [place], UA 1.016 1.001 - 1.035 pH, UA [...] Performing Laboratory Urine - Urine, Clean Catch [address] [address] Protein, random urine (02/03/2017 10:04 AM) Component Value Ref Range Protein, Urine 19 (H) 0 - 14 mg/dL Specimen Performing Laboratory Urine - Urine, Clean Catch [address] [address] Creatinine, random urine (02/03/2017 10:04 AM)Only the most recent of2 resultswithin the time period is included. Component Value Ref Range Creatinine, Ur 127.3 mg/dL Specimen Performing Laboratory Urine - Urine, Clean Catch [address] [address] Narrative Reference Range: No Normals B-type Natriuretic Factor (BNP) (02/03/2017 4:28 AM) Component Value Ref Range BNP 315 (H) 0 - 100 pg/mL Specimen Performing Laboratory Blood - Arm, Left [facility] [address] [place] [address], [place] [address] CT chest without IV contrast (02/02/2017 10:50 [...] MD Report Verified Date/Time:02/02/2017 11:27:58 Reading Location: [address] Ortho Consult Reading Room Procedure Note Interface, External Ris In - 02/02/2017 11:30 AM LEARNING SUPPORT TEACHER FINAL REPORT Chest CT without contrast Reason [...] Report Verified Date/Time: 02/02/2017 11:27:58 Reading Location: [facility] C013 Ortho Consult Reading Room chest 2 views (01/31/2017 3:37 PM) Specimen Performing Laboratory [employer] RIS Narrative FINAL REPORT HISTORY : dyspnea. [...] MD Report Verified Date/Time:01/31/2017 15:44:13 Reading Location: [facility] B1 C013X Ortho Consult Reading Room Procedure Note Interface, External Ris In - 01/31/2017 3:46 PM LEARNING SUPPORT TEACHER FINAL REPORT HISTORY : dyspnea. Comparison: 01/30/2017 [...] Report Verified Date/Time: 01/31/2017 15:44:13 Reading Location: [address] Ortho Consult Reading Room CARDIOGRAM REPORT [...] MD Report Verified Date/Time:01/30/2017 22:23:06 Reading Location: [facility] C013 Ortho Consult Reading Room Procedure Note Interface, External Ris In - 01/30/2017 10:25 PM LEARNING SUPPORT TEACHER FINAL REPORT U/S, RENAL, COMPLETE CLINICAL INDICATION: [...] Report Verified Date/Time: 01/30/2017 22:23:06 Reading Location: [facility] C013X Ortho Consult Reading Room 2D Echo W/Doppler(CW/PW/Color) (01/30/2017 8:33 PM) Component Value Ref Range Ejection Fraction Specimen Performing Laboratory [facility] Narrative Transthoracic Echocardiography Report (TTE) Demographics Patient Name ELY COLEY Date of Study 2016 [id number] GenderMale Visit Number [id number] Race[place] [id number] Number 1419 Number Date of Birth1945 Referring Physician Nicole Streeter Age71 year(s) Fleet Service Clerk Joni Kirkpatrick MD Ferdinand Tineo MD [...] External Ris In - 01/31/2017 12:47 PM LEARNING SUPPORT TEACHER Transthoracic Echocardiography Report (TTE) Demographics Patient Name ELY COLEY Date of Study 01/30/2017 Gender Male Visit Number [id number] Race Unknown Room Number 1419 Number Date of 1945 Referring Physician Nicole Streeter Age 71 year(s) Fleet Service Clerk Joni Kirkpatrick RDCS Interpreting MD Ferdinand [...] Specimen Performing Laboratory Urine - Urine, Voided [address] [address] Narrative Reference Range: No Normals Legionella antigen, urine (01/30/2017 7:36 PM) Component Value Ref Range Legionella Urine Antigen Negative - see commentComment: Negative for L. pneumophila serogroup 1 antigen, suggesting no recent or current infection with this serogroup. Legionellosis cannot be ruled out since other serogroups and species may cause disease. Specimen Performing Laboratory Urine - Urine, Voided [address] [address] Sodium, random urine (01/30/2017 7:36 PM) Component Value Ref Range Sodium Urine <20 meq/L Specimen Performing Laboratory Urine - Urine, Voided [address] [address] Narrative Reference Range: No Normals Urinalysis w/Microscopic (01/30/2017 7:36 PM) Component Value Ref Range Color, UA Yellow Clarity, UA Hazy Specific [place], UA 1.013 1.001 - 1.035 pH, UA [...] Specimen Performing Laboratory Urine - Urine, Voided [address] [address] Eosinophil smear (01/30/2017 7:36 PM) Component Value Ref Range Eosinophil Smear No EOS seen No EOS seen Specimen Performing Laboratory Urine - Urine, Voided [address] [address] Strep pneumoniae antigen (01/30/2017 3:00 PM) Component Value Ref Range Strep pneumoniae Antigen Presumptive negative for Presumptive negative for pneumococcal pneumonia - see pneumococcal pneumonia - see comment comment, Presumptive negative for pneumococcal meningitis - see comment Specimen Performing Laboratory Urine - Urine, Unspecified Source [address] [address] Narrative Presumptive negative for pneumococcal pneumonia, suggesting no current or recent pneumococcal infection. Infection due to S. pneumoniae cannot be ruled out since the antigen present in the sample may be below the detection limit of the test. Troponin I (01/30/2017 10:30 AM) Component Value Ref Range Troponin I 0.02 0.00 - 0.03 ng/mL Specimen Performing Laboratory Blood - Arm, Left [address] [address] Narrative Troponin I (TnI) levels must be [...] Performing Laboratory Nasal - Nasopharyngeal Swab [facility] [address] These assays were performed by real-time RT-PCR (transition rn-PCR) utilizing fluorogenic hydrolysis probe technology for the detection of human Influenza A viruses and the differential detection of novel H1N1 Influenza virus in respiratory specimens. The test is composed of (1) an RNA extraction from patient specimen, and (2) transition rn- PCR amplification and detection with human Influenza A and novel [id number] primers and probes. A well-conserved region of [...] and its performance characteristics determined by the [facility] Pathology Department, Section of Molecular Pathology.It has not been cleared or approved by the U.S. Food and Drug Administration (FDA).Since FDA approval is not required for clinical use of the test, validation was done as required by The Clinical Laboratory Amendments of 1988. These assays were performed by real-time RT-PCR (transition rn-PCR) utilizing fluorogenic hydrolysis probe technology for the detection of human Influenza A viruses and the differential detection of novel H1N1 Influenza virus in respiratory specimens. The test is composed of (1) an RNA extraction from patient specimen, and (2) transition rn- PCR amplification and detection with human Influenza A and novel [id number] primers and probes. A well-conserved region of [...] and its performance characteristics determined by the [facility] Pathology Department, Section of Molecular Pathology.It [...] Specimen Performing Laboratory Nasal - Nasopharyngeal Swab [address] [address] Hemoglobin A1c (01/30/2017 1:49 AM) Component Value Ref Range Hemoglobin A1C 10.7 (H) 4.3 - 6.1 % Specimen Performing Laboratory Blood - Arm, Left [address] [address] ECG 12 lead (01/30/2017 1:13 AM) Specimen Performing Laboratory [facility]USE Narrative Ventricular Rate 93 BPM Atrial Rate 94 BPM QRS Duration 100 ms Q-T Interval 368 ms QTC Calculation(Bazett) 457 ms R [place] 13 degrees T [place] [address] & T wave abnormality, consider inferior ischemia ST & T wave abnormality, consider anterolateral ischemia Abnormal ECG No previous ECGs available Confirmed by MD OVIEDO JOSEPH P ([id number]) on 01/31/2017 2:18:43 PM Procedure Note Interface, External Ris In - 01/31/2017 2:18 PM LEARNING SUPPORT TEACHER Ventricular Rate 93 BPM Atrial Rate 94 BPM QRS Duration 100 ms Q-T Interval 368 ms QTC Calculation(Bazett) 457 ms R [place] 13 degrees T [place] [address] & T wave abnormality, consider inferior ischemia ST & T wave abnormality, consider anterolateral ischemia Abnormal ECG No previous ECGs available Confirmed by MD OVIEDO JOSEPH P ([id number]) on 01/31/2017 2:18:43 PM after 11/24/2016
--- OUTSIDE RECORDS SUMMARY | 2017-11-25 17:08 | XMS REPORT | Continuity of Care Document ---
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 Problem 09/15/2016 [facility] fibrillation [facility] Chest pain Resolved Problem 09/15/2016 [facility] CHF (<span Resolved Problem 09/15/2016 [facility] ID="[id number] [facility] 9">Confirmed</s Center nieto>) CVA (<span Resolved Problem 09/15/2016 [facility] ID="[id number] [facility] 9">Confirmed</s Center nieto>) Dizziness Resolved Problem 09/15/2016 [facility] DM - Diabetes Active Problem 09/15/2016 [facility] mellitus [facility] Edema Resolved Problem 09/15/2016 [facility] Syncope Resolved Problem 09/15/2016 [facility] Bradycardia Resolved Problem 09/15/2016 [facility] Hypertension Active Problem 09/15/2016 [facility] Medications Medication Details Route Status Patient Ordering Order Source Instructions Provider Date Diltiazem 60 mg, No Longer [facility] Route: PO, Active 2017 Medical Drug form: Center TAB, Daily, Dosing Weight 116.364, kg, Start date: 09/13/16 9:00:00 CDT, Duration: 30 day, Stop date: 10/12/16 9:00:00 CDT metoprolol tartrate 50 mg, 1 Inactive [facility] tab, Route: 2017 Medical PO, Drug Center form: TAB, Q12H, Dosing Weight 116.364, kg, Start date: 09/12/16 21:00:00 CDT, Duration: 30 day, Stop date: 10/12/16 9:00:00 CDTNotes: (Same as: Lopressor) Insulin regular 4 unit, 0.04 Inactive [facility] mL, Route: 2016 Medical SUB-Q, Drug [...] Acetaminophen 300 MG 1 tab, PO, Active [facility] / Codeine Phosphate Q4H, PRN 2017 Medical 30 MG Oral Tablet Pain Score Center 4-6, 0 Refill(s) Dextrose 50% Syringe 25 gm, 50 Inactive [facility] mL, Route: 2016 Medical IVP, Drug Center Form: INJ, Dosing Weight 116.364, kg, PRN, PRN Blood Glucose Results, Start date: 09/12/16 11:50:00 CDT, Duration: 30 day, Stop date: 10/12/16 11:49:00 CDT Glucagon 1 mg, Route: Inactive [facility] IM, Drug 2016 Medical form: Center PDR/INJ, PRN, Dosing Weight 116.364, kg, PRN Blood Glucose Results, Start date: 09/12/16 11:50:00 CDT, Duration: 30 day, Stop date: 10/12/16 11:49:00 CDT valsartan 320 mg, 2 Inactive [facility] tab, Route: 2017 Medical PO, Drug Center form: TAB, Daily, Dosing Weight 116.364, kg, Start date: 09/12/16 9:00:00 CDT, Duration: 30 day, Stop date: 10/11/16 9:00:00 CDTNotes: Same as Diovan Cefazolin 1 gm, Route: No Longer [facility] IVPB, Drug Active 2016 Medical form: Center PDR/INJ, ABXQ8H, Dosing Weight 116.364, kg, Start date: 09/11/16 23:00:00 CDT, Duration: 2 doses or times, Stop date: 09/12/16 7:00:00 CDT, ABX Indication: Surgical ProphylaxisN otes: (Same As: Alida Kennedy) MEDICATION WASTE Product Size: 1000 mg Product Wasted: _0_ mg Calcium Gluconate 3 gm, 30 mL, No Longer [place] Route: IVPB, Active 2016 Medical PRN, Dosing Center Weight 116.364, kg, PRN Abnormal Lab Result, For NON-ICU Patients Only., Start date: 09/11/16 22:33:00 CDT, Duration: 30 day, Stop date: 10/11/16 22:32:00 CDTNotes: WASTE: F/P - Sink; E - Municipal Trash Bin Magnesium Oxide 800 mg, 2 No Longer [place] tab, Route: Active 2016 Medical PO, Drug Center form: TAB, PRN, Dosing Weight 116.364, kg, PRN Abnormal Lab Result, For NON-ICU Patients Only., Start date: 09/11/16 22:33:00 CDT, Duration: 30 day, Stop date: 10/11/16 22:32:00 CDTNotes: (Same as: Mag-Ox 400) Magnesium oxide [id number] elemental magnesium Dose=____mg magnesium oxide (___mg elemental magnesium) Magnesium Sulfate 2 gm, 50 mL, No Longer [place] Route: IVPB, Active 2016 Medical Drug form: Center INJ, PRN, Dosing Weight 116.364, kg, PRN Abnormal Lab Result, For NON-ICU Patients Only., Start date: 09/11/16 22:33:00 CDT, Duration: 30 day, Stop date: 10/11/16 22:32:00 CDTNotes: WASTE: F/P - Sink; E - Municipal Trash Bin sodium phosphate 15 mmol, 5 No Longer [place] mL, Route: Active 2016 Medical IVPB, PRN, Center Dosing Weight 116.364, kg, PRN Abnormal Lab Result, For NON-ICU Patients Only., Start date: 09/11/16 22:33:00 CDT, Duration: 30 day, Stop date: 10/11/16 22:32:00 CDT Potassium Chloride 10 mEq, 50 No Longer [place] mL, Route: Active 2016 Medical IVPB, Drug Center form: INJ, PRN, Dosing Weight 116.364, kg, PRN Abnormal Lab Result, For NON-ICU Patients Only, Start date: 09/11/16 22:33:00 CDT, Duration: 30 day, Stop date: 10/11/16 22:32:00 CDTNotes: (Same as: KCL) Infuse over 2 hours. potassium 2 pkt, No Longer [place] phosphate-sodium Route: PO, Active 2016 Medical phosphate 250 mg-280 Drug Form: [place] mg-160 mg oral PDR/REC, powder for Dosing reconstitution Weight 116.364, kg, PRN, PRN Abnormal Lab Result, For NON-ICU Patients Only, Start date: 09/11/16 22:33:00 CDT, Duration: 30 day, Stop date: 10/11/16 22:32:00 CDTNotes: (Same as: Phos-NaK) Each 1.5 gm pkt has 250mg phosphorous. Mix w/2.5oz water and stir. potassium phosphate 15 mmol, 5 No Longer [facility] mL, Route: Active 2016 [facility] IVPB, PRN, [place] Dosing Weight 116.364, kg, PRN Abnormal Lab Result, For NON-ICU Patients Only., Start date: 09/11/16 22:33:00 CDT, Duration: 30 day, Stop date: 10/11/16 22:32:00 CDTNotes: (Same as: K Phosphate.) 1 mMol phoshate has 1.47 mEq potassium Infuse over 4 hours Magnesium Sulfate 2 gm, 50 mL, No Longer [facility] Route: IVPB, Active 2016 Medical Drug form: [place] INJ, ONCE, Dosing Weight 116.364, kg, Total dose=2 gm, Start date: 09/11/16 22:22:00 CDT, Duration: 1 doses or times, Stop date: 09/11/16 22:22:00 CDTNotes: WASTE: F/P - Sink; E - Municipal Trash Bin Magnesium Sulfate 2 gm, 50 mL, Inactive [place] Route: IVPB2016 Medical Drug form: [place] INJ, ONCE, Dosing Weight 116.364, kg, Total dose=2 gm, Start date: 09/11/16 22:21:00 CDT, Duration: 1 doses or times, Stop date: 09/11/16 22:21:00 CDTNotes: WASTE: F/P - Sink; E - Municipal Trash Bin Potassium Chloride 40 mEq, 2 Inactive [facility] tab, Route: 2017 Medical PO, Drug Center form: ERTAB, ONCE, Dosing Weight 116.364, kg, Start date: 09/11/16 22:21:00 CDT, Stop date: 09/11/16 22:21:00 CDTNotes: (Same as: K-Dur 20) "Do Not Crush" With food and full glass of water Pradaxa 150 mg, 1 No Longer [facility] cap, Route: Active 2016 Medical PO, Drug Center form: CAP, Q12H, Dosing Weight 116.364, kg, Start date: 09/11/16 21:00:00 CDT, Duration: 30 day, Stop date: 10/11/16 9:00:00 CDTNotes: DO NOT break, chew or open capsules for administrati on. metoprolol tartrate 25 mg, Inactive [facility] Route: PO, 2016 Medical Drug form: Center TAB, Q12H, Dosing Weight 116.364, kg, Start date: 09/11/16 21:00:00 CDT, Duration: 30 day, Stop date: 10/11/16 9:00:00 CDT Lasix 20 mg, Inactive [facility] Route: IVP, 2016 Medical Drug form: [place] INJ, ONCE, Dosing Weight 116.364, kg, Start date: 09/11/16 18:38:00 CDT, Stop date: 09/11/16 18:38:00 CDT Diltiazem 125 mg, 25 No Longer [facility] mL, Rate: Active 2016 [facility] Titrate, [place] Start Dose: 2 mg/hr, Titration: none keep at 2mg/hr, Goal(s): Maintain HR Notes: (Same as: Cardizem) tramadol 50 mg, PO, No Longer [place] hydrochloride 50 MG Q4H, PRN Active 2016 Medical Oral Tablet Pain Score [place] 1-3, # 10 tab, 0 Refill(s) tramadol [...] 300 MG 1 tab, PO, No Longer [place] / Codeine Phosphate Q4H, PRN Active 2016 Medical 15 MG Oral Tablet Pain Score Center 4-6, # 12 tab, 0 Refill(s) cephalexin 500 mg 500 mg=1 Active [place] oral capsule cap, PO, 2017 Medical TID, # 15 Center cap, 0 Refill(s) acetaminophen-codein 1 tab, No Longer [place] e #3 Route: PO, Active 2016 Medical Drug Form: Center TAB, Dosing Weight 116.364, kg, Q4H, PRN Pain Score 4-6, Start date: 09/11/16 16:59:00 CDT, Duration: 30 day, Stop date: 10/11/16 16:58:00 CDTNotes: Do not exceed 4gm/day of acetaminophe n. (Same as: Tylenol with Codeine # 3) dabigatran etexilate 150 mg=1 On Hold [place] 150 MG Oral Capsule cap, PO, 2017 Medical [Pradaxa] Q12H, # 180 Center cap, 3 Refill(s) Metformin 850 mg, PO, Active [place] QAM, 0 2017 Medical Refill(s) Center valsartan 320 mg 320 mg=1 Active [place] oral tablet tab, PO, 2017 Medical Daily, # 90 Center tab, 0 Refill(s) Glipizide 10 MG Oral 10 mg=1 tab, Active [place] Tablet PO, 2017 Medical BID-Before [place] Meals, # 180 tab, 1 Refill(s) sodium chloride 0.9% 1,000 mL, No Longer [place] 1000 ml INJ 1,000 mL Rate: 50 Active 2016 Medical ml/hr, [place] Infuse over: 20 hr, Route: IV, Dosing [...] 1 drp, Inactive Ophthalmic Solution Route: 2014 [facility] [Mydriacyl] Operative Eye, Q5Min, Drug form: SOLN, Start date: 03/06/14 11:05:00, Duration: 3 doses or times, Stop date: 03/06/14 11:15:00Note s: (Same As: Mydriacyl, Opticyl, Tropicacyl) canagliflozin 100 MG 100 mg=1 Active Oral Tablet tab, PO, 2014 [facility] [Invokana] Daily, 0 Refill(s) lisinopril 20 mg 20 mg=1 tab, Active oral tablet PO, Daily, 0 2014 [facility] Refill(s) glyBURIDE 5 mg oral 10 mg=2 tab, Active tablet PO, BID, 0 2014 [facility] Refill(s) Aspirin Low Dose 81 PO, Daily, 0 Active mg oral tablet Refill(s) 2014 [facility] Hydrochlorothiazide 1 tab, PO, Active 50 MG / Triamterene Daily, # 30 2014 [facility] 75 MG Oral Tablet tab, 0 Refill(s) Allergies, Adverse Reactions, Alerts Substance Category Reaction Severity Reaction Status Date Comments Source type Reported NKFA Assertion Drug Active [facility] Immunizations Immunization Date Given Site Status Last Updated Comments Source Results Order Name Results Value Reference Date Interpretation Comments Source Range Chest 2 Chest 2 EXAM: XR CHEST 2 VIEWS 09/12 [facility] DX views /2016 - [facility] DATE: 09/12/2016 3:00 AM CDT Read by: [...] Phosphorus 3.1 mg/dL 2.5 - 4.5 09/12 [facility] CHEM PANEL Magnesium 2.6 mg/dL 1.8 - 2.4 09/12 [facility] ELECTROLYT AGAP 11.1 meq/L 10.0 - 09/12 [facility] 20.0 [facility] ELECTROLYT Potassium 4.1 meq/L 3.5 - 5.1 09/12 [facility] ELECTROLYT Chloride Lvl 105 meq/L 95 - 109 09/12 [facility] ELECTROLYT CO2 25 meq/L 24 - 32 09/12 [facility] ELECTROLYT eGFR 74 09/12 Result Comment: The eGFR is calculated using the CKD-EPI formula. In most young, healthy individuals the eGFR will be >90 mL/ min/1.73m2. The eGFR declines with age. An eGFR of 60-89 may be normal in [facility] mL/min/1. some populations, particularly the elderly, for whom the CKD-EPI formula has not been extensively validated. Use of the eGFR is not recommended in the following populations: [address] Individuals with unstable creatinine concentrations, including [...] BUN 16 mg/dL 7 - 22 09/[address] ELECTROLYT Glucose Lvl 177 mg/dL 70 - 99 09/[address] ELECTROLYT Calcium Lvl 8.7 mg/dL 8.5 - 10.5 09/[address] ELECTROLYT Creatinine 1.00 mg/dL 0.50 - 09/12 [facility] Lvl 1. [facility] ELECTROLYT Sodium Lvl 137 meq/L 135 - 145 09/[address] HEMATOLOGY Plt Morph Normal 09/12 [facility] (09/12/16 5:03 AM) [place] HEMATOLOGY Bands 0.0 % 0.0 - 11.0 09/[address] HEMATOLOGY Atypical 0.0 % <=0.0 % 09/12 [facility] Lymph [facility] HEMATOLOGY Monocytes 17.0 % 2.0 - 12.0 09/[address] HEMATOLOGY RBC Morph Normal 09/12 [facility] (09/12/16 5:03 AM) [place] HEMATOLOGY Eosinophils 1.0 % 0.0 - 4.0 09/[address] HEMATOLOGY Lymphocytes 27.0 % 20.0 - 09/12 [place] 40.0 [facility] HEMATOLOGY Segs-Bands # 4.8 K/CMM 1.5 - 8.1 09/[address] HEMATOLOGY Lymphocytes 2.3 K/CMM 1.0 - 5.5 09/12 [facility] HEMATOLOGY Segs 55.0 % 45.0 - 09/12 [place] 75.0 [facility] HEMATOLOGY Eosinophils 0.1 K/CMM 0.0 - 0.5 09/12 [facility] HEMATOLOGY Monocytes # 1.5 K/CMM 0.0 - 0.8 09/12 [facility] HEMATOLOGY MPV 7.7 fL 7.4 - 10.4 09/12 [facility] HEMATOLOGY MCH 29.8 pg 27.0 - 09/12 31.0 [facility] HEMATOLOGY MCV 88.2 fL 80.0 - 09/12 [place] 94.0 [facility] HEMATOLOGY Platelet 177 K/CMM 133 - 450 09/12 [facility] HEMATOLOGY RDW 14.7 % 11.5 - 08 14.5 [facility] HEMATOLOGY MCHC 33.8 g/dL 32.0 - 09/12 36.0 [facility] HEMATOLOGY RBC 3.97 M/CMM 4.70 - 09/12 [place] 6.10 [facility] HEMATOLOGY Hgb 11.8 g/dL 14.0 - 09/12 18.0 [facility] HEMATOLOGY WBC 8.7 K/CMM 3.7 - 10.4 09/12 [facility] HEMATOLOGY Hct 35.0 % 42.0 - 09/12 54.0 [facility] CHEM PANEL eGFR 68 09/11 Result Comment: The eGFR is calculated using the CKD-EPI formula. In most young, healthy individuals the eGFR will be >90 mL/ min/1.73m2. The eGFR declines with age. An eGFR of 60-89 may be normal in [facility] mL/min/1.7 some populations, particularly the elderly, for whom the CKD-EPI formula has not been extensively validated. Use of the eGFR is not recommended in the following populations: [address] Individuals with unstable creatinine concentrations, including [...] PANEL AGAP 13.8 meq/L 10.0 - 09/11 [facility] 20.0 [facility] CHEM PANEL Calcium Lvl 9.0 mg/dL 8.5 - 10.5 09/11 [facility] CHEM PANEL CO2 26 meq/L 24 - 32 09/11 [facility] CHEM PANEL Chloride Lvl 104 meq/L 95 - 109 09/11 [facility] CHEM PANEL Potassium 3.8 meq/L 3.5 - 5.1 09/11 [facility] CHEM PANEL Sodium Lvl 140 meq/L 135 - 145 09/11 [facility] CHEM PANEL Creatinine 1.07 mg/dL 0.50 - 09/11 [facility] 1.40 [facility] CHEM PANEL BUN 13 mg/dL 7 - 22 09/11 [facility] CHEM PANEL Glucose Lvl 146 mg/dL 70 - 99 09/11 [facility] Chest 1 v Chest 1 v Chest one view, 09/11/2016 at 1752 hours 09/11 - [facility] - Medical Placement Placement DX Center [...] ventricle. BLOOD BANK ABO/Rh O POS 09/11 [facility] RESULTS [facility] BLOOD BANK Antibody Negative 09/11 [facility] RESULTS [facility] (09/11/16 11:12 AM) Center CHEM PANEL Phosphorus 3.3 mg/dL 2.5 - 4.5 09/11 [facility] CHEM PANEL Magnesium 1.6 mg/dL 1.8 - 2.4 09/11 [facility] ELECTROLYT AGAP 9.7 meq/L 10.0 - 09/11 [facility] 20.0 [facility] ELECTROLYT eGFR 69 09/11 Result Comment: The eGFR is calculated using the CKD-EPI formula. In most young, healthy individuals the eGFR will be >90 mL/ min/1.73m2. The eGFR declines with age. An eGFR of 60-89 may be normal in [facility] mL/min/1.7 some populations, particularly the elderly, for whom the CKD-EPI formula has not been extensively validated. Use of the eGFR is not recommended in the following populations: [address] Individuals with unstable creatinine concentrations, including [...] CO2 28 meq/L 24 - 32 09/11 [facility] ELECTROLYT Chloride Lvl 102 meq/L 95 - 109 09/11 [facility] ELECTROLYT Potassium 3.7 meq/L 3.5 - 5.1 09/11 [facility] ELECTROLYT Calcium Lvl 8.9 mg/dL 8.5 - 10.5 09/11 [facility] ELECTROLYT Sodium Lvl 136 meq/L 135 - 145 09/11 [facility] ELECTROLYT Creatinine 1.06 mg/dL 0.50 - 09/11 [facility] Lvl 1.40 /2016 [facility] ELECTROLYT BUN 15 mg/dL 7 - 22 09/11 [facility] ELECTROLYT Glucose Lvl 87 mg/dL 70 - 99 09/11 [facility] HEMATOLOGY Hct 33.1 % 42.0 - 09/11 [facility] 54.0 [facility] HEMATOLOGY Platelet 188 K/CMM 133 - 450 09/11 [facility]2016 [facility] HEMATOLOGY Hgb 11.0 g/dL 14.0 - 08 [facility] 18.0 [facility] HEMATOLOGY MPV 7.5 fL 7.4 - 10.4 09/11 [facility] HEMATOLOGY MCV 89.2 fL 80.0 - 09/11 94.0 [facility] HEMATOLOGY MCH 29.5 pg 27.0 - 08 31.0 [facility] HEMATOLOGY RBC 3.72 M/CMM 4.70 - 09/11 6.10 [facility] HEMATOLOGY RDW 14.7 % 11.5 - 09/11 14.5 [facility] HEMATOLOGY WBC 8.2 K/CMM 3.7 - 10.4 09/11 [facility] HEMATOLOGY MCHC 33.1 g/dL 32.0 - 09/11 36.0 [facility] HEMATOLOGY PT 16.6 s 12.0 - 09/11 14.7 [facility] HEMATOLOGY INR 1.32 0.85 - 09/11 1.17 [facility] HEMATOLOGY PTT 43.0 s 22.9 - 09/11 35.8 [facility] HEMATOLOGY Monocytes # 1.6 K/CMM 0.0 - 0.8 09/11 [facility] HEMATOLOGY Eosinophils 0.3 K/CMM 0.0 - 0.5 09/11 [facility] HEMATOLOGY Lymphocytes 1.7 K/CMM 1.0 - 5.5 09/11 [facility] HEMATOLOGY Basophils 0.5 % 0.0 - 1.0 09/11 [facility] HEMATOLOGY Segs-Bands # 4.5 K/CMM 1.5 - 8.1 09/11 [facility] HEMATOLOGY Eosinophils 3.4 % 0.0 - 4.0 09/11 [facility] HEMATOLOGY Segs 55.3 % 45.0 - 09/11 75.0 [facility] HEMATOLOGY Lymphocytes 21.2 % 20.0 - 08 40.0 [facility] HEMATOLOGY Monocytes 19.6 % 2.0 - 12.0 09/11 [facility] CHEM PANEL Calcium Lvl 9.4 mg/dL 8.5 - 10.5 03/05 [facility] CHEM PANEL CO2 26 meq/L 24 - 32 03/05 [facility] CHEM PANEL eGFR 40 03/05 1Result Comment: The eGFR is calculated using the CKD-EPI formula. In most young, healthy individuals the eGFR will be >90 mL/ min/1.73m2. The eGFR declines with age. An eGFR of 60-89 may be normal in mL/min/1. some populations, particularly the elderly, for whom the CKD-EPI formula has not been extensively validated. Use of the eGFR is not recommended in the following populations: [address] Individuals with unstable creatinine concentrations, including patients [...] BUN 45 mg/dL 7 - 22 03/05 [facility] CHEM PANEL Glucose Lvl 100 mg/dL 70 - 99 03/05 2Interpretive Data: Adult reference range values reflect the clinical guidelines of the [place] [employer]. [facility] CHEM PANEL Potassium 4.4 meq/L 3.5 - 5.1 03/05 Lv [facility] CHEM PANEL Chloride Lvl 106 meq/L 95 - 109 03/05 [facility] CHEM PANEL Creatinine 1.7 mg/dL 0.5 - 1.4 03/05 Lvl [facility] CHEM PANEL Sodium Lvl 139 meq/L 135 - 145 03/05 [facility] CHEM PANEL AGAP 11.4 meq/L 10.0 - 03/05 [facility] 20.0 [facility] HEMATOLOGY MPV 7.3 fL 7.4 - 10.4 03/05 [facility] MCHC 33.9 g/dL 32.0 - 03/05 [facility] 36.0 [facility] HEMATOLOGY Platelet 198 K/CMM 133 - 450 03/05 [facility] HEMATOLOGY Hgb 13.7 g/dL 14.0 - 03/05 [facility] 18.0 [facility] HEMATOLOGY RDW 14.6 % 11.5 - 03/05 [facility] 14. [facility] HEMATOLOGY Hct 40.4 % 42.0 - 03/05 [facility] 54.0 [facility] MCH 31.5 pg 27.0 - 03/05 [facility] 31.0 [facility] HEMATOLOGY MCV 92.8 fL 80.0 - 03/05 [facility] 94.0 [facility] HEMATOLOGY RBC 4.35 M/CMM 4.70 - 03/05 [facility] 6.10 /2015 [facility] HEMATOLOGY WBC 9.4 K/CMM 3.7 - 10.4 03/05 [facility] HEMATOLOGY Eosinophils 2.4 % 0.0 - 4.0 03/05 [facility] HEMATOLOGY Monocytes 14.6 % 2.0 - 12.0 03/05 [facility] HEMATOLOGY Segs-Bands # 5.5 K/CMM 1.5 - 8.1 03/05 [facility] HEMATOLOGY Lymphocytes 24.1 % 20.0 - 03/05 40.0 [facility] HEMATOLOGY Segs 58.6 % 45.0 - 03/05 75.0 [facility] HEMATOLOGY Basophils # 0.0 K/CMM 0.0 - 0.2 03/05 [facility] HEMATOLOGY Eosinophils 0.2 K/CMM 0.0 - 0.5 03/05 [facility] HEMATOLOGY Basophils 0.3 % 0.0 - 1.0 03/05 [facility] HEMATOLOGY Monocytes # 1.4 K/CMM 0.0 - 0.8 03/05 [facility] HEMATOLOGY Lymphocytes 2.3 K/CMM 1.0 - 5.5 03/05 [facility] Vital Signs Vital Sign Value Date Comments Source Temperature Oral (F) 97.9 F 09/12/2016 [facility] Respitory Rate 23 09/12/2016 [facility] Systolic (mm Hg) 143 09/12/2016 [facility] Diastolic (mm Hg) 68 09/12/2016 [facility] Respitory Rate 20 09/12/2016 [facility] Systolic (mm Hg) 148 09/12/2016 [facility] Diastolic (mm Hg) 73 09/12/2016 [facility] Respitory Rate 21 09/12/2016 [facility] Systolic (mm Hg) 129 09/12/2016 [facility] Diastolic (mm Hg) 61 09/12/2016 [facility] Temperature Oral (F) 97.9 F 09/12/2016 [facility] Temperature Oral (F) 97.6 F 09/12/2016 [facility] BMI Calculated 34.79 09/11/2016 [facility] Weight 116.364 09/11/2016 [facility] Height 182.88 cm 09/11/2016 [facility] Systolic (mm Hg) 100 03/06/2014 [facility] Diastolic (mm Hg) 55 03/06/2014 [facility] Respitory Rate 16 03/06/2014 [facility] Diastolic (mm Hg) 75 03/06/2014 [facility] Systolic (mm Hg) 100 03/06/2014 [facility] Respitory Rate 17 03/06/2014 [facility] Diastolic (mm Hg) 49 03/06/2014 [facility] Systolic (mm Hg) 101 03/06/2014 [facility] Respitory Rate 14 03/06/2014 [facility] Heart Rate 97 03/06/2014 [facility] Heart Rate 96 03/05/2014 [facility] BMI Calculated 38.83 03/05/2014 [facility] Weight 126.3 03/05/2014 [facility] Height 180.34 cm 03/05/2014 [facility] Encounters Location Location Encounter Encounter Reason Attending ADM DC Status Source Details Type Number For Provider Date Date Visit [facility] OBS Day [id number] Jean Carlos 03/06 03/06 [facility] /2014 [facility] Bedded [id number] Eddie 09/11 09/12 [facility] /2016 [facility] Procedures Procedure Code Date Perfomer Comments Source Arthroplasty of [id number] 2012 tight [facility] knee<sup>1</sup> [facility] Procedure<sup>2</s [id number] right great [facility] up> toe ,i/2 [facility] 1976 Arthroplasty of [id number] tight [facility] knee<sup>1</sup> Procedure<sup>2</s [id number] 2right great [facility] up> toe ,i/2 amp 1976
--- OUTSIDE RECORDS SUMMARY | 2017-11-25 17:09 | XMS REPORT ---
:1945 [facility] Address [address] [place] [address] [address] [place] [address] Care Team Providers Name Role Phone ABIEL [...] (BEAKER) (test 270 mg/dL 70-110 TESTED AT [address] aqhg=2077) [facility] [address] POCT-GLUCOSE [id number] 08:58:00 Test Item Value Reference Range Comments POC-GLUCOSE METER (BEAKER) 147 mg/dL 70-110 TESTED AT [address] (test sfao=1090) [facility] [address] CBC W/PLT COUNT & AUTO [id number] 08:53:00 Test Item Value Reference Range Comments WHITE BLOOD CELL COUNT (BEAKER) (test xopb=478) 5.6 K/ L 3.5-10.5 RED BLOOD CELL COUNT (BEAKER) (test yldt=021) 4.28 M/ L 4.63-6.08 HEMOGLOBIN (BEAKER) (test ftdq=565) 11.7 GM/DL 13.7-17.5 HEMATOCRIT (BEAKER) (test lwep=327) 37.4 % 40.1-51.0 MEAN CORPUSCULAR VOLUME (BEAKER) (test grmi=883) 87.4 fL 79.0-92.2 MEAN CORPUSCULAR HEMOGLOBIN (BEAKER) (test 27.3 pg 25.7-32.2 yrkb=562) MEAN CORPUSCULAR HEMOGLOBIN CONC (BEAKER) (test 31.3 GM/DL 32.3-36.5 pqyr=231) RED CELL DISTRIBUTION WIDTH (BEAKER) (test 16.2 % 11.6-14.4 hizo=837) PLATELET COUNT (BEAKER) (test fsnl=354) 100 K/CU MM 150-450 MEAN PLATELET VOLUME (BEAKER) (test ynef=589) 10.7 fL 9.4-12.4 NUCLEATED RED BLOOD CELLS (BEAKER) (test 0 /100 WBC 0-0 zcrx=094) NEUTROPHILS RELATIVE PERCENT (BEAKER) (test 50 % gdbu=400) LYMPHOCYTES RELATIVE PERCENT (BEAKER) (test 30 % rpop=706) MONOCYTES RELATIVE PERCENT (BEAKER) (test 18 % aruo=920) EOSINOPHILS RELATIVE PERCENT (BEAKER) (test 2 % feth=243) BASOPHILS RELATIVE PERCENT (BEAKER) (test 1 % heod=494) NEUTROPHILS ABSOLUTE COUNT (BEAKER) (test 2.77 K/ L 1.78-5.38 fteh=649) LYMPHOCYTES ABSOLUTE COUNT (BEAKER) (test 1.66 K/ L 1.32-3.57 qfuj=963) MONOCYTES ABSOLUTE COUNT (BEAKER) (test 1.02 K/ L 0.30-0.82 imhw=114) EOSINOPHILS ABSOLUTE COUNT (BEAKER) (test 0.09 K/ L 0.04-0.54 oarv=031) BASOPHILS ABSOLUTE COUNT (BEAKER) (test 0.03 K/ L 0.01-0.08 xnii=991) IMMATURE GRANULOCYTES-RELATIVE PERCENT (BEAKER) 0 % 0-1 (test lryf=7911) [id number] 08:05:00 Test Item Value Reference Range Comments MAGNESIUM (BEAKER) (test ijdl=976) 1.5 mg/dL 1.6-2.6 BASIC METABOLIC [id number] 08:05:00 Test Item Value Reference Range Comments SODIUM (BEAKER) (test 137 meq/L 136-145 jwjo=384) POTASSIUM (BEAKER) (test 3.3 meq/L 3.5-5.1 wmkg=383) CHLORIDE (BEAKER) (test 98 meq/L 98-107 rmuk=313) CO2 (BEAKER) (test 27 meq/L 22-29 pbrv=778) BLOOD UREA NITROGEN 30 mg/dL 7-21 (BEAKER) (test wexh=174) CREATININE (BEAKER) (test 1.59 mg/dL 0.57-1.25 bmeu=350) GLUCOSE RANDOM (BEAKER) 116 mg/dL 70-105 (test foug=717) CALCIUM (BEAKER) (test 9.0 mg/dL 8.4-10.2 lwku=290) EGFR (BEAKER) (test 43 mL/min/1.73 sq m ESTIMATED GFR IS NOT uprm=7805) ACCURATE CREATININE CLEARANCE IN PREDICTING GLOMERULAR FILTRATION RATE. ESTIMATED GFR IS NOT APPLICABLE FOR DIALYSIS PATIENTS. POCT-GLUCOSE [id number] 21:57:00 Test Item Value Reference Range Comments POC-GLUCOSE METER (BEAKER) 219 mg/dL 70-110 TESTED AT [address] (test fqgx=5574) [facility] [address] POCT-GLUCOSE [id number] 17:24:00 Test Item Value Reference Range Comments POC-GLUCOSE METER (BEAKER) 247 mg/dL 70-110 TESTED AT [address] (test nrew=2110) [facility] [address] CBC W/PLT COUNT & AUTO [id number] 13:56:00 Test Item Value Reference Range Comments WHITE BLOOD CELL COUNT (BEAKER) (test xzsf=361) 6.4 K/ L 3.5-10.5 RED BLOOD CELL COUNT (BEAKER) (test ensh=698) 4.04 M/ L 4.63-6.08 HEMOGLOBIN (BEAKER) (test dgwi=565) 10.9 GM/DL 13.7-17.5 HEMATOCRIT (BEAKER) (test koxi=198) 35.4 % 40.1-51.0 MEAN CORPUSCULAR VOLUME (BEAKER) (test hjbv=364) 87.6 fL 79.0-92.2 MEAN CORPUSCULAR HEMOGLOBIN (BEAKER) (test 27.0 pg 25.7-32.2 hvfk=566) MEAN CORPUSCULAR HEMOGLOBIN CONC (BEAKER) (test 30.8 GM/DL 32.3-36.5 hbir=578) RED CELL DISTRIBUTION WIDTH (BEAKER) (test 16.1 % 11.6-14.4 aibh=424) PLATELET COUNT (BEAKER) (test cyki=837) 98 K/CU MM 150-450 MEAN PLATELET VOLUME (BEAKER) (test ezyl=263) 10.5 fL 9.4-12.4 NUCLEATED RED BLOOD CELLS (BEAKER) (test 0 /100 WBC 0-0 ldfj=429) IMMATURE GRANULOCYTES-RELATIVE PERCENT (BEAKER) 0 % 0-1 (test abtg=3065) (MANUAL DIFFERENTIAL)2017-02-07 13:56:00 Test Item Value Reference Range Comments NEUTROPHILS - REL (DIFF) (BEAKER) (test avqv=9428) 52 % LYMPHOCYTES - REL (DIFF) (BEAKER) (test tyrz=8896) 26 % MONOCYTES - REL (DIFF) (BEAKER) (test cidb=3546) 14 % EOSINOPHILS - REL (DIFF) (BEAKER) (test mski=6010) 6 % BASOPHILS - REL (DIFF) (BEAKER) (test lygw=5091) 0 % BANDS - REL (DIFF) (BEAKER) (test ssgb=5988) 1 % 0-10 ATYPICAL LYMPHOCYTE - REL (DIFF) (BEAKER) (test 1 % 0-0 tfli=384) NEUTROPHILS - ABS (DIFF) (BEAKER) (test bgor=0121) 3.33 K/ L 1.80-8.00 LYMPHOCYTES - ABS (DIFF) (BEAKER) (test wnrl=9619) 1.66 K/ L 1.48-4.50 MONOCYTES - ABS (DIFF) (BEAKER) (test fefe=1750) 0.90 K/ L 0.00-1.30 EOSINOPHILS - ABS (DIFF) (BEAKER) (test rfxz=2958) 0.38 K/ L 0.00-0.50 BASOPHILS - ABS (DIFF) (BEAKER) (test bvyb=2762) 0.00 K/ L 0.00-0.20 BANDS-ABS (DIFF) (BEAKER) (test sflc=6413) 0.1 K/ L 0.0-0.8 ATYPICAL LYMPHOCYTES - ABS (DIFF) (BEAKER) (test 0.06 K/ L 0.00-0.00 kiam=671) TOTAL COUNTED (BEAKER) (test ggac=5803) 100 BANDS + SEGMENTED NEUTROPHILS (BEAKER) (test 3.39 dhrv=2517) WBC MORPHOLOGY (BEAKER) (test bcjb=197) Normal PLT MORPHOLOGY (BEAKER) (test hivi=912) Normal RBC MORPHOLOGY (BEAKER) (test biwd=126) Normal POCT-GLUCOSE [id number] 13:22:00 Test Item Value Reference Range Comments POC-GLUCOSE METER (BEAKER) 226 mg/dL 70-110 TESTED AT [address] (test iivi=0601) [place] [id number] POCT-GLUCOSE [id number] 07:59:00 Test Item Value Reference Range Comments POC-GLUCOSE METER (BEAKER) 216 mg/dL 70-110 TESTED AT [address] (test hpvq=2402) [place] [address] [id number] 05:18:00 Test Item Value Reference Range Comments MAGNESIUM (BEAKER) (test lnwp=946) 1.7 mg/dL 1.6-2.6 BASIC METABOLIC [id number] 05:18:00 Test Item Value Reference Range Comments SODIUM (BEAKER) (test 136 meq/L 136-145 hior=548) POTASSIUM (BEAKER) (test 3.4 meq/L 3.5-5.1 wxnp=649) CHLORIDE (BEAKER) (test 101 meq/L 98-107 zshh=084) CO2 (BEAKER) (test 26 meq/L 22-29 ritg=733) BLOOD UREA NITROGEN 25 mg/dL 7-21 (BEAKER) (test wtkn=744) CREATININE (BEAKER) (test 1.50 mg/dL 0.57-1.25 rljk=482) GLUCOSE RANDOM (BEAKER) 216 mg/dL 70-105 (test jrxf=504) CALCIUM (BEAKER) (test 8.5 mg/dL 8.4-10.2 hzjy=343) EGFR (BEAKER) (test 46 mL/min/1.73 sq m ESTIMATED GFR IS NOT ddmt=2765) ACCURATE CREATININE CLEARANCE IN PREDICTING GLOMERULAR FILTRATION RATE. ESTIMATED GFR IS NOT APPLICABLE FOR DIALYSIS PATIENTS. POCT-GLUCOSE [id number] 20:58:00 Test Item Value Reference Range Comments POC-GLUCOSE METER (BEAKER) 260 mg/dL 70-110 TESTED AT [address] (test lzns=1124) [place] [address] POCT-GLUCOSE [id number] 17:32:00 Test Item Value Reference Range Comments POC-GLUCOSE METER (BEAKER) 237 mg/dL 70-110 TESTED AT [address] (test fqin=8860) [place] [address] POCT-GLUCOSE [id number] 16:21:00 Test Item Value Reference Range Comments POC-GLUCOSE METER (BEAKER) 223 mg/dL 70-110 TESTED AT [facility] [address] (test iaoi=5970) [facility] [address] CBC W/PLT COUNT & AUTO [id number] 14:22:00 Test Item Value Reference Range Comments WHITE BLOOD CELL COUNT (BEAKER) (test txti=457) 6.5 K/ L 3.5-10.5 RED BLOOD CELL COUNT (BEAKER) (test xtss=672) 4.17 M/ L 4.63-6.08 HEMOGLOBIN (BEAKER) (test ilgy=036) 11.3 GM/DL 13.7-17.5 HEMATOCRIT (BEAKER) (test kgsf=832) 36.8 % 40.1-51.0 MEAN CORPUSCULAR VOLUME (BEAKER) (test zgxk=228) 88.2 fL 79.0-92.2 MEAN CORPUSCULAR HEMOGLOBIN (BEAKER) (test 27.1 pg 25.7-32.2 bprc=556) MEAN CORPUSCULAR HEMOGLOBIN CONC (BEAKER) (test 30.7 GM/DL 32.3-36.5 oojr=258) RED CELL DISTRIBUTION WIDTH (BEAKER) (test 16.1 % 11.6-14.4 oebo=781) PLATELET COUNT (BEAKER) (test taul=804) 116 K/CU MM 150-450 MEAN PLATELET VOLUME (BEAKER) (test zgjo=127) 10.7 fL 9.4-12.4 NUCLEATED RED BLOOD CELLS (BEAKER) (test 0 /100 WBC 0-0 kggr=456) NEUTROPHILS RELATIVE PERCENT (BEAKER) (test 48 % pfqw=027) LYMPHOCYTES RELATIVE PERCENT (BEAKER) (test 30 % uvmc=445) MONOCYTES RELATIVE PERCENT (BEAKER) (test 20 % kzuh=668) EOSINOPHILS RELATIVE PERCENT (BEAKER) (test 1 % jwvx=674) BASOPHILS RELATIVE PERCENT (BEAKER) (test 0 % iydr=809) NEUTROPHILS ABSOLUTE COUNT (BEAKER) (test 3.09 K/ L 1.78-5.38 udru=017) LYMPHOCYTES ABSOLUTE COUNT (BEAKER) (test 1.95 K/ L 1.32-3.57 dcsw=701) MONOCYTES ABSOLUTE COUNT (BEAKER) (test 1.32 K/ L 0.30-0.82 mywn=121) EOSINOPHILS ABSOLUTE COUNT (BEAKER) (test 0.07 K/ L 0.04-0.54 zqmn=773) BASOPHILS ABSOLUTE COUNT (BEAKER) (test 0.02 K/ L 0.01-0.08 uxau=763) IMMATURE GRANULOCYTES-RELATIVE PERCENT (BEAKER) 0 % 0-1 (test ecbf=4470) (MANUAL DIFFERENTIAL)2017-02-06 14:22:00 Test Item Value Reference Range Comments TOTAL COUNTED (BEAKER) (test jlna=5321) WBC MORPHOLOGY (BEAKER) (test ggvh=723) Normal PLT MORPHOLOGY (BEAKER) (test dskx=372) Normal RBC MORPHOLOGY (BEAKER) (test zofl=543) Normal POCT-GLUCOSE [id number] 11:52:00 Test Item Value Reference Range Comments POC-GLUCOSE METER (BEAKER) 143 mg/dL 70-110 TESTED AT [address] (test ynpe=3444) [place] [id number] POCT-GLUCOSE [id number] 08:04:00 Test Item Value Reference Range Comments POC-GLUCOSE METER (BEAKER) 86 mg/dL 70-110 TESTED AT [address] (test jpmi=8332) [place] [address] [id number] 06:07:00 Test Item Value Reference Range Comments MAGNESIUM (BEAKER) (test 1.6 mg/dL 1.6-2.6 Specimen slightly hemolyzed cahv=454) BASIC METABOLIC [id number] 06:07:00 Test Item Value Reference Range Comments SODIUM (BEAKER) (test 135 meq/L 136-145 dbyu=328) POTASSIUM (BEAKER) (test 3.7 meq/L 3.5-5.1 Specimen slightly sgrt=608) hemolyzed CHLORIDE (BEAKER) (test 104 meq/L 98-107 ojfe=805) CO2 (BEAKER) (test 22 meq/L 22-29 royg=104) BLOOD UREA NITROGEN 27 mg/dL 7-21 (BEAKER) (test akkx=496) CREATININE (BEAKER) (test 1.32 mg/dL 0.57-1.25 Specimen slightly wfmn=395) hemolyzed GLUCOSE RANDOM (BEAKER) 103 mg/dL 70-105 (test zldg=969) CALCIUM (BEAKER) (test 8.4 mg/dL 8.4-10.2 ruyr=647) EGFR (BEAKER) (test 53 mL/min/1.73 sq m ESTIMATED GFR IS NOT avcu=3461) ACCURATE CREATININE CLEARANCE IN PREDICTING GLOMERULAR FILTRATION RATE. ESTIMATED GFR IS NOT APPLICABLE FOR DIALYSIS PATIENTS. POCT-GLUCOSE [id number] 20:42:00 Test Item Value Reference Range Comments POC-GLUCOSE METER (BEAKER) 338 mg/dL 70-110 TESTED AT [facility] [address] [facility] (test jrnx=5657) [facility] [address] POCT-GLUCOSE [id number] 17:41:00 Test Item Value Reference Range Comments POC-GLUCOSE METER (BEAKER) 303 mg/dL 70-110 TESTED AT [address] (test eszj=4535) [facility] [address] RAD, CHEST, 1 VIEW, NON [id number] 14:44:00Reason for exam:->shortness of breath s/p RHCShould this be performed at the bedside?->YesFINAL REPORT CLINICAL HISTORY: shortness of breath s/p RHC TECHNIQUE : 1 viewof the chest. COMPARISON: 01/31/2017 IMPRESSION: Trace bilateral pleural effusions are again seen with left basilar atelectasis. The cardiomediastinal silhouette is magnified by technique with a pacemaker. Signed : Barbara Espinoza MDReport Verified Date/Time: 02/05/2017 14:44:20 Reading Location: [address] Consult Reading Room CBC W/PLT COUNT & AUTO [id number] 14:37:00 Test Item Value Reference Range Comments WHITE BLOOD CELL COUNT (BEAKER) (test otfa=563) 7.1 K/ L 3.5-10.5 RED BLOOD CELL COUNT (BEAKER) (test ifgs=216) 4.34 M/ L 4.63-6.08 HEMOGLOBIN (BEAKER) (test dwvu=086) 11.8 GM/DL 13.7-17.5 HEMATOCRIT (BEAKER) (test mfxb=486) 38.1 % 40.1-51.0 MEAN CORPUSCULAR VOLUME (BEAKER) (test ylrr=001) 87.8 fL 79.0-92.2 MEAN CORPUSCULAR HEMOGLOBIN (BEAKER) (test 27.2 pg 25.7-32.2 ksqm=981) MEAN CORPUSCULAR HEMOGLOBIN CONC (BEAKER) (test 31.0 GM/DL 32.3-36.5 zydk=761) RED CELL DISTRIBUTION WIDTH (BEAKER) (test 16.1 % 11.6-14.4 ijfr=965) PLATELET COUNT (BEAKER) (test tnwa=718) 112 K/CU MM 150-450 MEAN PLATELET VOLUME (BEAKER) (test ptpe=944) 10.6 fL 9.4-12.4 NUCLEATED RED BLOOD CELLS (BEAKER) (test 0 /100 WBC 0-0 mefb=863) NEUTROPHILS RELATIVE PERCENT (BEAKER) (test 55 % osig=758) LYMPHOCYTES RELATIVE PERCENT (BEAKER) (test 20 % ripu=177) MONOCYTES RELATIVE PERCENT (BEAKER) (test 23 % mnei=639) EOSINOPHILS RELATIVE PERCENT (BEAKER) (test 1 % lgkd=334) BASOPHILS RELATIVE PERCENT (BEAKER) (test 0 % kscl=010) NEUTROPHILS ABSOLUTE COUNT (BEAKER) (test 3.91 K/ L 1.78-5.38 ttfy=973) LYMPHOCYTES ABSOLUTE COUNT (BEAKER) (test 1.43 K/ L 1.32-3.57 ltlr=532) MONOCYTES ABSOLUTE COUNT (BEAKER) (test 1.67 K/ L 0.30-0.82 yxic=257) EOSINOPHILS ABSOLUTE COUNT (BEAKER) (test 0.08 K/ L 0.04-0.54 mvxi=440) BASOPHILS ABSOLUTE COUNT (BEAKER) (test 0.03 K/ L 0.01-0.08 nhhz=967) IMMATURE GRANULOCYTES-RELATIVE PERCENT (BEAKER) 0 % 0-1 (test uphx=0134) (MANUAL DIFFERENTIAL)2017-02-05 14:37:00 Test Item Value Reference Range Comments TOTAL COUNTED (BEAKER) (test tihd=3645) WBC MORPHOLOGY (BEAKER) (test mkmu=822) Normal PLT MORPHOLOGY (BEAKER) (test brnx=501) Normal RBC MORPHOLOGY (BEAKER) (test crkl=756) Normal POCT-GLUCOSE [id number] 12:08:00 Test Item Value Reference Range Comments POC-GLUCOSE METER (BEAKER) 197 mg/dL 70-110 TESTED AT [address] (test rpai=2348) [facility] [address] POCT-GLUCOSE [id number] 07:55:00 Test Item Value Reference Range Comments POC-GLUCOSE METER (BEAKER) 149 mg/dL 70-110 TESTED AT [address] (test dzlr=3287) [place] [address] [id number] 05:21:00 Test Item Value Reference Range Comments MAGNESIUM (BEAKER) (test qugh=392) 1.4 mg/dL 1.6-2.6 BASIC METABOLIC [id number] 05:21:00 Test Item Value Reference Range Comments SODIUM (BEAKER) (test 139 meq/L 136-145 ayrr=759) POTASSIUM (BEAKER) (test 3.7 meq/L 3.5-5.1 ibhv=878) CHLORIDE (BEAKER) (test 107 meq/L 98-107 fezr=283) CO2 (BEAKER) (test 23 meq/L 22-29 agit=372) BLOOD UREA NITROGEN 24 mg/dL 7-21 (BEAKER) (test mcqt=283) CREATININE (BEAKER) (test 1.31 mg/dL 0.57-1.25 hrqh=786) GLUCOSE RANDOM (BEAKER) 155 mg/dL 70-105 (test nvzm=813) CALCIUM (BEAKER) (test 8.5 mg/dL 8.4-10.2 qtpi=948) EGFR (BEAKER) (test 54 mL/min/1.73 sq m ESTIMATED GFR IS NOT pjsz=4938) ACCURATE CREATININE CLEARANCE IN PREDICTING GLOMERULAR FILTRATION RATE. ESTIMATED GFR IS NOT APPLICABLE FOR DIALYSIS PATIENTS. POCT-GLUCOSE [id number] 21:03:00 Test Item Value Reference Range Comments POC-GLUCOSE METER (BEAKER) 296 mg/dL 70-110 TESTED AT [address] (test leva=7234) [facility] [address] POCT-GLUCOSE [id number] 17:18:00 Test Item Value Reference Range Comments POC-GLUCOSE METER (BEAKER) 275 mg/dL 70-110 TESTED AT [address] (test irwy=0125) [facility] [address] CBC W/PLT COUNT & AUTO [id number] 15:04:00 Test Item Value Reference Range Comments WHITE BLOOD CELL COUNT (BEAKER) (test nskk=302) 7.2 K/ L 3.5-10.5 RED BLOOD CELL COUNT (BEAKER) (test tmlk=703) 4.24 M/ L 4.63-6.08 HEMOGLOBIN (BEAKER) (test sqlm=696) 11.5 GM/DL 13.7-17.5 HEMATOCRIT (BEAKER) (test eoas=909) 37.6 % 40.1-51.0 MEAN CORPUSCULAR VOLUME (BEAKER) (test swor=388) 88.7 fL 79.0-92.2 MEAN CORPUSCULAR HEMOGLOBIN (BEAKER) (test 27.1 pg 25.7-32.2 zhsf=163) MEAN CORPUSCULAR HEMOGLOBIN CONC (BEAKER) (test 30.6 GM/DL 32.3-36.5 zznh=275) RED CELL DISTRIBUTION WIDTH (BEAKER) (test 16.3 % 11.6-14.4 tnju=709) PLATELET COUNT (BEAKER) (test itqx=048) 116 K/CU MM 150-450 MEAN PLATELET VOLUME (BEAKER) (test hidu=781) 10.6 fL 9.4-12.4 NUCLEATED RED BLOOD CELLS (BEAKER) (test 0 /100 WBC 0-0 vvll=804) NEUTROPHILS RELATIVE PERCENT (BEAKER) (test 51 % jyva=987) LYMPHOCYTES RELATIVE PERCENT (BEAKER) (test 22 % fzqf=407) MONOCYTES RELATIVE PERCENT (BEAKER) (test 24 % gyop=743) EOSINOPHILS RELATIVE PERCENT (BEAKER) (test 1 % xyly=876) BASOPHILS RELATIVE PERCENT (BEAKER) (test 0 % orvx=052) NEUTROPHILS ABSOLUTE COUNT (BEAKER) (test 3.71 K/ L 1.78-5.38 lcmc=280) LYMPHOCYTES ABSOLUTE COUNT (BEAKER) (test 1.62 K/ L 1.32-3.57 jjrh=144) MONOCYTES ABSOLUTE COUNT (BEAKER) (test 1.74 K/ L 0.30-0.82 guaz=893) EOSINOPHILS ABSOLUTE COUNT (BEAKER) (test 0.08 K/ L 0.04-0.54 gbgj=879) BASOPHILS ABSOLUTE COUNT (BEAKER) (test 0.03 K/ L 0.01-0.08 tqxp=832) IMMATURE GRANULOCYTES-RELATIVE PERCENT (BEAKER) 1 % 0-1 (test boxl=7647) (MANUAL DIFFERENTIAL)2017-02-04 15:04:00 Test Item Value Reference Range Comments TOTAL COUNTED (BEAKER) (test zeqk=7510) POCT-GLUCOSE [id number] 12:17:00 Test Item Value Reference Range Comments POC-GLUCOSE METER (BEAKER) 208 mg/dL 70-110 TESTED AT [address] (test ikcp=8941) [facility] [address] POCT-GLUCOSE [id number] 08:57:00 Test Item Value Reference Range Comments POC-GLUCOSE METER (BEAKER) 230 mg/dL 70-110 TESTED AT [address] (test svco=1739) [place] [id number] 05:56:00 Test Item Value Reference Range Comments MAGNESIUM (BEAKER) (test ezdy=448) 1.6 mg/dL 1.6-2.6 BASIC METABOLIC [id number] 05:56:00 Test Item Value Reference Range Comments SODIUM (BEAKER) (test 137 meq/L 136-145 gtnm=669) POTASSIUM (BEAKER) (test 4.2 meq/L 3.5-5.1 jhva=032) CHLORIDE (BEAKER) (test 108 meq/L 98-107 eago=634) CO2 (BEAKER) (test 19 meq/L 22-29 oopi=930) BLOOD UREA NITROGEN 28 mg/dL 7-21 (BEAKER) (test yrhk=484) CREATININE (BEAKER) (test 1.35 mg/dL 0.57-1.25 fxcu=179) GLUCOSE RANDOM (BEAKER) 271 mg/dL 70-105 (test hrcf=319) CALCIUM (BEAKER) (test 8.4 mg/dL 8.4-10.2 ihmz=506) EGFR (BEAKER) (test 52 mL/min/1.73 sq m ESTIMATED GFR IS NOT jwet=6190) ACCURATE CREATININE CLEARANCE IN PREDICTING GLOMERULAR FILTRATION RATE. ESTIMATED GFR IS NOT APPLICABLE FOR DIALYSIS PATIENTS. POCT-GLUCOSE [id number] 21:20:00 Test Item Value Reference Range Comments POC-GLUCOSE METER (BEAKER) 329 mg/dL 70-110 Notified JUDSON WATTS/TESTED AT [facility] (test dpit=2897) [facility] [address] [facility] [address] POCT-GLUCOSE [id number] 18:14:00 Test Item Value Reference Range Comments POC-GLUCOSE METER (BEAKER) 299 mg/dL 70-110 TESTED AT [facility] [address] (test xlth=5196) [facility] [address] CBC W/PLT COUNT & AUTO [id number] 15:17:00 Test Item Value Reference Range Comments WHITE BLOOD CELL COUNT (BEAKER) (test zwbh=806) 8.0 K/ L 3.5-10.5 RED BLOOD CELL COUNT (BEAKER) (test indk=758) 4.25 M/ L 4.63-6.08 HEMOGLOBIN (BEAKER) (test oeyt=059) 11.7 GM/DL 13.7-17.5 HEMATOCRIT (BEAKER) (test bwin=293) 37.9 % 40.1-51.0 MEAN CORPUSCULAR VOLUME (BEAKER) (test gwku=465) 89.2 fL 79.0-92.2 MEAN CORPUSCULAR HEMOGLOBIN (BEAKER) (test 27.5 pg 25.7-32.2 jvui=069) MEAN CORPUSCULAR HEMOGLOBIN CONC (BEAKER) (test 30.9 GM/DL 32.3-36.5 mstk=824) RED CELL DISTRIBUTION WIDTH (BEAKER) (test 16.1 % 11.6-14.4 ydxn=267) PLATELET COUNT (BEAKER) (test epgg=935) 139 K/CU MM 150-450 MEAN PLATELET VOLUME (BEAKER) (test avvk=644) 10.4 fL 9.4-12.4 NUCLEATED RED BLOOD CELLS (BEAKER) (test 0 /100 WBC 0-0 wnem=524) NEUTROPHILS RELATIVE PERCENT (BEAKER) (test 52 % seza=480) LYMPHOCYTES RELATIVE PERCENT (BEAKER) (test 24 % raqa=946) MONOCYTES RELATIVE PERCENT (BEAKER) (test 22 % dwku=291) EOSINOPHILS RELATIVE PERCENT (BEAKER) (test 2 % juck=490) BASOPHILS RELATIVE PERCENT (BEAKER) (test 0 % jyjq=379) NEUTROPHILS ABSOLUTE COUNT (BEAKER) (test 4.11 K/ L 1.78-5.38 dnlk=394) LYMPHOCYTES ABSOLUTE COUNT (BEAKER) (test 1.91 K/ L 1.32-3.57 lquk=707) MONOCYTES ABSOLUTE COUNT (BEAKER) (test 1.75 K/ L 0.30-0.82 vgtn=772) EOSINOPHILS ABSOLUTE COUNT (BEAKER) (test 0.14 K/ L 0.04-0.54 ebze=112) BASOPHILS ABSOLUTE COUNT (BEAKER) (test 0.03 K/ L 0.01-0.08 szhl=217) IMMATURE GRANULOCYTES-RELATIVE PERCENT (BEAKER) 0 % 0-1 (test acfx=9544) (MANUAL DIFFERENTIAL)2017-02-03 15:17:00 Test Item Value Reference Range Comments TOTAL COUNTED (BEAKER) (test nmpi=9542) WBC MORPHOLOGY (BEAKER) (test ijnp=427) Normal PLT MORPHOLOGY (BEAKER) (test nkty=835) Normal RBC MORPHOLOGY (BEAKER) (test ozht=182) Normal POCT-GLUCOSE [id number] 12:54:00 Test Item Value Reference Range Comments POC-GLUCOSE METER (BEAKER) 173 mg/dL 70-110 TESTED AT [facility] [address] [facility] (test nwsp=8467) [facility] [address] URINALYSIS W/ REFLEX URINE [id number] 12:06:00 Test Item Value Reference Range Comments COLOR (BEAKER) (test qtkl=849) Yellow CLARITY (BEAKER) (test zeni=358) Clear SPECIFIC GRAVITY UA (BEAKER) (test hhsw=612) 1.016 1.001-1.035 PH UA (BEAKER) (test pfek=107) 5.0 5.0-8.0 PROTEIN UA (BEAKER) (test bfbq=189) 20 mg/dL Negative GLUCOSE UA (BEAKER) (test lupa=487) 50 mg/dL Negative KETONES UA (BEAKER) (test pgxg=821) Negative Negative BILIRUBIN UA (BEAKER) (test lxep=033) Negative Negative BLOOD UA (BEAKER) (test kkga=581) Trace Negative NITRITE UA (BEAKER) (test nzgz=778) Negative Negative LEUKOCYTE ESTERASE UA (BEAKER) (test ekws=907) Negative Negative UROBILINOGEN UA (BEAKER) (test tzvu=757) 0.2 mg/dL 0.2-1.0 RBC UA (BEAKER) (test bjli=077) 3 /HPF WBC UA (BEAKER) (test xmjd=727) 4 /HPF BACTERIA (BEAKER) (test tanr=520) Occasional MUCUS (BEAKER) (test qshf=1928) Occasional SQUAMOUS EPITHELIAL (BEAKER) (test chzt=476) 1 /HPF AMORPHOUS CRYSTALS (BEAKER) (test uyqw=9758) Occasional SOURCE(BEAKER) (test adxs=0143) CREATININE, RANDOM [id number] 10:52:00 Test Item Value Reference Range Comments CREATININE URINE (BEAKER) (test ygad=796) 127.3 mg/dL Reference Range: No NormalsPROTEIN, RANDOM [id number] 10:52:00 Test Item Value Reference Range Comments PROTEIN, URINE (BEAKER) (test hlse=7839) 19 mg/dL 0-14 POCT-GLUCOSE [id number] 07:55:00 Test Item Value Reference Range Comments POC-GLUCOSE METER (BEAKER) 88 mg/dL 70-110 TESTED AT [facility] [address] [facility] (test zulq=2027) [facility] [address] [id number] 05:22:00 Test Item Value Reference Range Comments MAGNESIUM (BEAKER) (test kivm=800) 1.8 mg/dL 1.6-2.6 BASIC METABOLIC [id number] 05:22:00 Test Item Value Reference Range Comments SODIUM (BEAKER) (test 138 meq/L 136-145 lapf=151) POTASSIUM (BEAKER) (test 4.0 meq/L 3.5-5.1 jjrb=046) CHLORIDE (BEAKER) (test 110 meq/L 98-107 xuxt=512) CO2 (BEAKER) (test 21 meq/L 22-29 zmjv=687) BLOOD UREA NITROGEN 31 mg/dL 7-21 (BEAKER) (test ohet=174) CREATININE (BEAKER) (test 1.27 mg/dL 0.57-1.25 bzsn=045) GLUCOSE RANDOM (BEAKER) 130 mg/dL 70-105 (test qbwj=608) CALCIUM (BEAKER) (test 8.4 mg/dL 8.4-10.2 mnhc=677) EGFR (BEAKER) (test 56 mL/min/1.73 sq m ESTIMATED GFR IS NOT gfqm=5258) ACCURATE CREATININE CLEARANCE IN PREDICTING GLOMERULAR FILTRATION RATE. ESTIMATED GFR IS NOT APPLICABLE FOR DIALYSIS PATIENTS. B-TYPE NATRIURETIC FACTOR (BNP)2017-02-03 05:17:00 Test Item Value Reference Range Comments B-TYPE NATRIURETIC PEPTIDE (BEAKER) (test 315 pg/mL 0-100 uywo=294) POCT-GLUCOSE [id number] 21:36:00 Test Item Value Reference Range Comments POC-GLUCOSE METER (BEAKER) 230 mg/dL 70-110 TESTED AT [address] (test hrxq=1214) [place] [address] POCT-GLUCOSE [id number] 17:50:00 Test Item Value Reference Range Comments POC-GLUCOSE METER (BEAKER) 185 mg/dL 70-110 TESTED AT [address] (test klve=3730) [place] [address] POCT-GLUCOSE [id number] 12:49:00 Test Item Value Reference Range Comments POC-GLUCOSE METER (BEAKER) 168 mg/dL 70-110 TESTED AT [address] (test aout=7542) [place] [address] CT, CHEST, WITHOUT [id number] 11:27:00FINAL REPORT Chest CT without contrast Reason [...] MDReport Verified Date/Time: 02/02/2017 11:27:58 Reading Location: [facility] B1 [id number] Ortho Consult Reading Room Electronically signed by: CAR KABA M.D. on 11:27 AMPOCT-GLUCOSE [id number] 08:24:00 Test Item Value Reference Range Comments POC-GLUCOSE METER (BEAKER) 84 mg/dL 70-110 TESTED AT [facility] [address] [facility] (test amlc=5963) [facility] [address] [id number] 07:42:00 Test Item Value Reference Range Comments MAGNESIUM (BEAKER) (test pyfg=962) 1.8 mg/dL 1.6-2.6 BASIC METABOLIC [id number] 07:42:00 Test Item Value Reference Range Comments SODIUM (BEAKER) (test 137 meq/L 136-145 nugs=987) POTASSIUM (BEAKER) (test 3.8 meq/L 3.5-5.1 vhhh=366) CHLORIDE (BEAKER) (test 108 meq/L 98-107 hsvi=976) CO2 (BEAKER) (test 20 meq/L 22-29 zxqd=162) BLOOD UREA NITROGEN 35 mg/dL 7-21 (BEAKER) (test gesy=077) CREATININE (BEAKER) (test 1.30 mg/dL 0.57-1.25 cjik=305) GLUCOSE RANDOM (BEAKER) 102 mg/dL 70-105 (test lmys=441) CALCIUM (BEAKER) (test 8.4 mg/dL 8.4-10.2 lpny=937) EGFR (BEAKER) (test 54 mL/min/1.73 sq m ESTIMATED GFR IS NOT zijw=4241) ACCURATE CREATININE CLEARANCE IN PREDICTING GLOMERULAR FILTRATION RATE. ESTIMATED GFR IS NOT APPLICABLE FOR DIALYSIS PATIENTS. CBC W/PLT COUNT & AUTO [id number] 07:40:00 Test Item Value Reference Range Comments WHITE BLOOD CELL COUNT (BEAKER) (test cqgy=322) 9.3 K/ L 3.5-10.5 RED BLOOD CELL COUNT (BEAKER) (test uvfc=881) 4.32 M/ L 4.63-6.08 HEMOGLOBIN (BEAKER) (test ekva=903) 11.9 GM/DL 13.7-17.5 HEMATOCRIT (BEAKER) (test rmrx=904) 38.3 % 40.1-51.0 MEAN CORPUSCULAR VOLUME (BEAKER) (test edkg=971) 88.7 fL 79.0-92.2 MEAN CORPUSCULAR HEMOGLOBIN (BEAKER) (test 27.5 pg 25.7-32.2 srdy=299) MEAN CORPUSCULAR HEMOGLOBIN CONC (BEAKER) (test 31.1 GM/DL 32.3-36.5 mvpi=231) RED CELL DISTRIBUTION WIDTH (BEAKER) (test 16.4 % 11.6-14.4 tbwl=728) PLATELET COUNT (BEAKER) (test ijbm=098) 150 K/CU MM 150-450 MEAN PLATELET VOLUME (BEAKER) (test wbdj=397) 10.3 fL 9.4-12.4 NUCLEATED RED BLOOD CELLS (BEAKER) (test 0 /100 WBC 0-0 uxdj=065) NEUTROPHILS RELATIVE PERCENT (BEAKER) (test 58 % dihi=916) LYMPHOCYTES RELATIVE PERCENT (BEAKER) (test 20 % zrzn=511) MONOCYTES RELATIVE PERCENT (BEAKER) (test 20 % sitc=628) EOSINOPHILS RELATIVE PERCENT (BEAKER) (test 2 % habx=208) BASOPHILS RELATIVE PERCENT (BEAKER) (test 0 % undc=469) NEUTROPHILS ABSOLUTE COUNT (BEAKER) (test 5.35 K/ L 1.78-5.38 qsbk=160) LYMPHOCYTES ABSOLUTE COUNT (BEAKER) (test 1.84 K/ L 1.32-3.57 szhd=827) MONOCYTES ABSOLUTE COUNT (BEAKER) (test 1.83 K/ L 0.30-0.82 wsqv=310) EOSINOPHILS ABSOLUTE COUNT (BEAKER) (test 0.16 K/ L 0.04-0.54 qhyl=941) BASOPHILS ABSOLUTE COUNT (BEAKER) (test 0.03 K/ L 0.01-0.08 yqzc=572) IMMATURE GRANULOCYTES-RELATIVE PERCENT (BEAKER) 0 % 0-1 (test bjzk=9961) POCT-GLUCOSE [id number] 21:29:00 Test Item Value Reference Range Comments POC-GLUCOSE METER (BEAKER) 273 mg/dL 70-110 TESTED AT [address] (test yawu=4455) [facility] [address] POCT-GLUCOSE [id number] 19:21:00 Test Item Value Reference Range Comments POC-GLUCOSE METER (BEAKER) 286 mg/dL 70-110 TESTED AT [address] (test ezwg=1433) [facility] [address] POCT-GLUCOSE [id number] 17:33:00 Test Item Value Reference Range Comments POC-GLUCOSE METER (BEAKER) 263 mg/dL 70-110 TESTED AT [address] (test pcdy=2176) [facility] [address] POCT-GLUCOSE [id number] 12:25:00 Test Item Value Reference Range Comments POC-GLUCOSE METER (BEAKER) 196 mg/dL 70-110 TESTED AT [address] (test pmga=8714) [facility] [address] CBC W/PLT COUNT & AUTO [id number] 10:54:00 Test Item Value Reference Range Comments WHITE BLOOD CELL COUNT (BEAKER) (test acpp=863) 9.0 K/ L 3.5-10.5 RED BLOOD CELL COUNT (BEAKER) (test zqrc=912) 4.43 M/ L 4.63-6.08 HEMOGLOBIN (BEAKER) (test ayiz=901) 12.2 GM/DL 13.7-17.5 HEMATOCRIT (BEAKER) (test lcgs=307) 39.3 % 40.1-51.0 MEAN CORPUSCULAR VOLUME (BEAKER) (test dtpd=799) 88.7 fL 79.0-92.2 MEAN CORPUSCULAR HEMOGLOBIN (BEAKER) (test 27.5 pg 25.7-32.2 jmge=863) MEAN CORPUSCULAR HEMOGLOBIN CONC (BEAKER) (test 31.0 GM/DL 32.3-36.5 ixok=441) RED CELL DISTRIBUTION WIDTH (BEAKER) (test 16.4 % 11.6-14.4 xzex=022) PLATELET COUNT (BEAKER) (test sjgy=653) 157 K/CU MM 150-450 MEAN PLATELET VOLUME (BEAKER) (test tfdk=653) 11.1 fL 9.4-12.4 NUCLEATED RED BLOOD CELLS (BEAKER) (test 0 /100 WBC 0-0 szjp=963) NEUTROPHILS RELATIVE PERCENT (BEAKER) (test 55 % odmc=265) LYMPHOCYTES RELATIVE PERCENT (BEAKER) (test 24 % eysw=121) MONOCYTES RELATIVE PERCENT (BEAKER) (test 19 % ssru=983) EOSINOPHILS RELATIVE PERCENT (BEAKER) (test 2 % jwvr=196) BASOPHILS RELATIVE PERCENT (BEAKER) (test 0 % uoiz=348) NEUTROPHILS ABSOLUTE COUNT (BEAKER) (test 4.95 K/ L 1.78-5.38 uafw=501) LYMPHOCYTES ABSOLUTE COUNT (BEAKER) (test 2.13 K/ L 1.32-3.57 jqhq=219) MONOCYTES ABSOLUTE COUNT (BEAKER) (test 1.71 K/ L 0.30-0.82 ygnn=008) EOSINOPHILS ABSOLUTE COUNT (BEAKER) (test 0.17 K/ L 0.04-0.54 wqts=143) BASOPHILS ABSOLUTE COUNT (BEAKER) (test 0.02 K/ L 0.01-0.08 vuvx=907) IMMATURE GRANULOCYTES-RELATIVE PERCENT (BEAKER) 0 % 0-1 (test muqx=5315) (MANUAL DIFFERENTIAL)2017-02-01 10:54:00 Test Item Value Reference Range Comments TOTAL COUNTED (BEAKER) (test txmm=6195) WBC MORPHOLOGY (BEAKER) (test kggu=079) Normal PLT MORPHOLOGY (BEAKER) (test gfxw=599) Normal RBC MORPHOLOGY (BEAKER) (test jbho=302) Normal POCT-GLUCOSE [id number] 08:17:00 Test Item Value Reference Range Comments POC-GLUCOSE METER (BEAKER) 176 mg/dL 70-110 TESTED AT [facility] [address] [facility] (test dtwh=1967) [facility] [address] [id number] 06:41:00 Test Item Value Reference Range Comments MAGNESIUM (BEAKER) (test vjrp=425) 1.7 mg/dL 1.6-2.6 BASIC METABOLIC [id number] 06:41:00 Test Item Value Reference Range Comments SODIUM (BEAKER) (test 136 meq/L 136-145 ycer=343) POTASSIUM (BEAKER) (test 3.6 meq/L 3.5-5.1 zttl=129) CHLORIDE (BEAKER) (test 107 meq/L 98-107 ghwj=980) CO2 (BEAKER) (test 21 meq/L 22-29 dxcp=701) BLOOD UREA NITROGEN 37 mg/dL 7-21 (BEAKER) (test lkux=128) CREATININE (BEAKER) (test 1.43 mg/dL 0.57-1.25 bmff=208) GLUCOSE RANDOM (BEAKER) 180 mg/dL 70-105 (test vqdf=800) CALCIUM (BEAKER) (test 8.4 mg/dL 8.4-10.2 sqlw=177) EGFR (BEAKER) (test 48 mL/min/1.73 sq m ESTIMATED GFR IS NOT hhdq=5805) ACCURATE CREATININE CLEARANCE IN PREDICTING GLOMERULAR FILTRATION RATE. ESTIMATED GFR IS NOT APPLICABLE FOR DIALYSIS PATIENTS. POCT-GLUCOSE [id number] 21:33:00 Test Item Value Reference Range Comments POC-GLUCOSE METER (BEAKER) 295 mg/dL 70-110 TESTED AT [address] (test umzo=2184) [place] [id number] POCT-GLUCOSE [id number] 17:47:00 Test Item Value Reference Range Comments POC-GLUCOSE METER (BEAKER) 277 mg/dL 70-110 TESTED AT [address] (test guxe=5934) [place] [address] RAD, CHEST, 2 [id number] 15:44:00Reason for exam:->dyspneaFINAL REPORT HISTORY : dyspnea. [...] MDReport Verified Date/Time: 01/31/2017 15:44:13 Reading Location: [facility] [id number] Ortho Consult Reading Room POCT-GLUCOSE [id number] 11:51:00 Test Item Value Reference Range Comments POC-GLUCOSE METER (BEAKER) 238 mg/dL 70-110 TESTED AT [address] (test snsu=0550) [facility] [address] POCT-GLUCOSE [id number] 09:54:00 Test Item Value Reference Range Comments POC-GLUCOSE METER (BEAKER) 224 mg/dL 70-110 TESTED AT [facility] [address] (test xdfs=4454) [facility] [address] CBC W/PLT COUNT & AUTO [id number] 05:34:00 Test Item Value Reference Range Comments WHITE BLOOD CELL COUNT (BEAKER) (test iico=478) 9.4 K/ L 3.5-10.5 RED BLOOD CELL COUNT (BEAKER) (test ykmx=835) 4.42 M/ L 4.63-6.08 HEMOGLOBIN (BEAKER) (test amfn=210) 12.1 GM/DL 13.7-17.5 HEMATOCRIT (BEAKER) (test zgxu=265) 39.0 % 40.1-51.0 MEAN CORPUSCULAR VOLUME (BEAKER) (test xujt=514) 88.2 fL 79.0-92.2 MEAN CORPUSCULAR HEMOGLOBIN (BEAKER) (test 27.4 pg 25.7-32.2 psne=966) MEAN CORPUSCULAR HEMOGLOBIN CONC (BEAKER) (test 31.0 GM/DL 32.3-36.5 olfp=196) RED CELL DISTRIBUTION WIDTH (BEAKER) (test 16.5 % 11.6-14.4 rfep=261) PLATELET COUNT (BEAKER) (test eqsg=455) 176 K/CU MM 150-450 MEAN PLATELET VOLUME (BEAKER) (test optd=178) 10.8 fL 9.4-12.4 NUCLEATED RED BLOOD CELLS (BEAKER) (test 0 /100 WBC 0-0 ponw=887) NEUTROPHILS RELATIVE PERCENT (BEAKER) (test 52 % iulc=681) LYMPHOCYTES RELATIVE PERCENT (BEAKER) (test 26 % ybey=657) MONOCYTES RELATIVE PERCENT (BEAKER) (test 19 % nfqd=248) EOSINOPHILS RELATIVE PERCENT (BEAKER) (test 2 % rynr=738) BASOPHILS RELATIVE PERCENT (BEAKER) (test 0 % uhmp=231) NEUTROPHILS ABSOLUTE COUNT (BEAKER) (test 4.91 K/ L 1.78-5.38 kywa=136) LYMPHOCYTES ABSOLUTE COUNT (BEAKER) (test 2.41 K/ L 1.32-3.57 cvvu=295) MONOCYTES ABSOLUTE COUNT (BEAKER) (test 1.81 K/ L 0.30-0.82 owke=252) EOSINOPHILS ABSOLUTE COUNT (BEAKER) (test 0.19 K/ L 0.04-0.54 vddp=204) BASOPHILS ABSOLUTE COUNT (BEAKER) (test 0.02 K/ L 0.01-0.08 vooe=679) IMMATURE GRANULOCYTES-RELATIVE PERCENT (BEAKER) 0 % 0-1 (test fumi=5421) [id number] 05:19:00 Test Item Value Reference Range Comments MAGNESIUM (BEAKER) (test dhgc=127) 1.8 mg/dL 1.6-2.6 BASIC METABOLIC [id number] 05:19:00 Test Item Value Reference Range Comments SODIUM (BEAKER) (test 135 meq/L 136-145 csvu=681) POTASSIUM (BEAKER) (test 3.6 meq/L 3.5-5.1 xbsn=350) CHLORIDE (BEAKER) (test 105 meq/L 98-107 tvej=683) CO2 (BEAKER) (test 20 meq/L 22-29 zbcl=054) BLOOD UREA NITROGEN 46 mg/dL 7-21 (BEAKER) (test afih=748) CREATININE (BEAKER) (test 1.61 mg/dL 0.57-1.25 xiqe=873) GLUCOSE RANDOM (BEAKER) 193 mg/dL 70-105 (test ejfx=995) CALCIUM (BEAKER) (test 8.5 mg/dL 8.4-10.2 nari=683) EGFR (BEAKER) (test 42 mL/min/1.73 sq m ESTIMATED GFR IS NOT ppnm=9711) ACCURATE CREATININE CLEARANCE IN PREDICTING GLOMERULAR FILTRATION RATE. ESTIMATED GFR IS NOT APPLICABLE FOR DIALYSIS PATIENTS. STREP PNEUMONIAE [id number] 23:56:00 Test Item Value Reference Range Comments STREP PNEUMONIAE ANTIGEN Presumptive negative for Presumptive negative for (BEAKER) (test pneumococcal pneumonia - pneumococcal pneumonia - ldml=9727) see comment see commen Presumptive negative for pneumococcal pneumonia, suggesting no current or recent pneumococcal infection. Infection due to S. pneumoniae cannot be ruled out since the antigen present in the sample may be below the detection limit of the test.LEGIONELLA ANTIGEN, [id number] 23:54:00 Test Item Value Reference Range Comments L. PNEUMOPHILA SEROGP 1 Negative - see Negative for L. UR AG (BEAKER) (test comment pneumophila serogroup 1 uqeh=9631) antigen, suggesting no recent or current infection with this serogroup. Legionellosis cannot be ruled out since other serogroups and species may cause disease. INFLUENZA A H1N1 [id number] 23:10:00 Test Item Value Reference Range Comments INFLUENZA A RNA (BEAKER) (test Not Detected Not Detected, Inconclusive trpc=1353) NOVEL H1N1 RNA (BEAKER) (test Not Detected Not Detected, Inconclusive phai=9712) These assays were performed by real-time RT-PCR (tool liaison-PCR) utilizing fluorogenic hydrolysis probe technology for the detection of human Influenza A viruses and the differential detection of novel H1N1 Influenza virus in respiratory specimens. The test is composed of (1) an RNA extraction from patient specimen, and (2) tool liaison-PCR amplification and detection with human Influenza A and novel R0E5-panuabzf primers and probes. A well-conserved region of [...] and its performance characteristics determined by the [facility] Pathology Department, Section of Molecular Pathology. It has not been cleared or approved by the U.S. Food and Drug Administration (FDA). SinceFDA approval is not required for clinical use of the test, validation was done as required by The Clinical Laboratory Amendments of 1988.These assays were performed by real-time RT-PCR (tool liaison-PCR) utilizing fluorogenic hydrolysis probe technology for the detection of human Influenza A viruses and the differential detection of novel H1N1 Influenza virus in respiratory specimens. The test is composed of (1) an RNA extraction from patient specimen, and (2) tool liaison-PCR amplification and detection with human Influenza A and novel I1J5-bbzehrxu primers and probes. A well-conserved region of [...] and its performance characteristics determined by the [facility] Pathology Department, Section of Molecular Pathology. It has not been cleared or approved by the U.S. Food and Drug Administration ( FDA). Since FDA approval is not required for clinical use of the test, validation was done as required by The Clinical Laboratory Amendments of 1988.POCT-GLUCOSE [id number] 23:03:00 Test Item Value Reference Range Comments POC-GLUCOSE METER (BEAKER) 233 mg/dL 70-110 TESTED AT [facility] [address] [facility] (test gjcj=0342) [facility] [address] U/S, RENAL, [id number] 22:23:00Reason for exam:->akiFINAL REPORT U/S, RENAL, COMPLETE [...] MDReport Verified Date/Time: 01/30/2017 22:23:06 Reading Location: [address] Ortho Consult Reading Room Electronically signed by: SARIAH BARRIOS MD on 2016 10:23 PMSODIUM, RANDOM [id number] 20:40:00 Test Item Value Reference Range Comments SODIUM URINE (BEAKER) (test ygpi=440) < meq/L Reference Range: No NormalsEOSINOPHIL SMEAR, [id number] 20:40:00 Test Item Value Reference Range Comments EOSINOPHIL SMEAR, URINE (BEAKER) (test No EOS seen No EOS seen qkqo=2799) CREATININE, RANDOM [id number] 20:24:00 Test Item Value Reference Range Comments CREATININE URINE (BEAKER) (test asck=866) 113.2 mg/dL Reference Range: No NormalsMICROALBUMIN, RANDOM [id number] 20:24:00 Test Item Value Reference Range Comments MICROALBUMIN URINE (BEAKER) (test xhnu=1742) 4.2 mg/dL Reference Range: No NormalsURINALYSIS W/ [id number] 20:14:00 Test Item Value Reference Range Comments COLOR (BEAKER) (test qsli=566) Yellow CLARITY (BEAKER) (test tckz=296) Hazy SPECIFIC GRAVITY UA (BEAKER) (test iogw=724) 1.013 1.001-1.035 PH UA (BEAKER) (test losm=506) 5.0 5.0-8.0 PROTEIN UA (BEAKER) (test nibn=278) 20 mg/dL Negative GLUCOSE UA (BEAKER) (test zcne=845) 30 mg/dL Negative KETONES UA (BEAKER) (test dtvn=181) Negative Negative BILIRUBIN UA (BEAKER) (test opai=265) Negative Negative BLOOD UA (BEAKER) (test xama=364) Negative Negative NITRITE UA (BEAKER) (test gnfb=153) Negative Negative LEUKOCYTE ESTERASE UA (BEAKER) (test utpp=954) Moderate Negative UROBILINOGEN UA (BEAKER) (test xjlt=737) 0.2 mg/dL 0.2-1.0 RBC UA (BEAKER) (test vwgb=142) 1 /HPF WBC UA (BEAKER) (test ndku=535) 5 /HPF MUCUS (BEAKER) (test vvvf=0461) Rare SQUAMOUS EPITHELIAL (BEAKER) (test kkkg=599) 1 /HPF SOURCE(BEAKER) (test ulcg=5486) Urine, Voided POCT-GLUCOSE [id number] 18:25:00 Test Item Value Reference Range Comments POC-GLUCOSE METER (BEAKER) 230 mg/dL 70-110 TESTED AT [address] (test tgnk=9814) [facility] [address] POCT-GLUCOSE [id number] 13:49:00 Test Item Value Reference Range Comments POC-GLUCOSE METER (BEAKER) 267 mg/dL 70-110 TESTED AT [address] (test pgen=6755) [facility] [address] HEMOGLOBIN [id number] 11:50:00 Test Item Value Reference Range Comments HEMOGLOBIN A1C (BEAKER) (test paql=889) 10.7 % 4.3-6.1 TROPONIN [id number] 11:42:00 Test Item Value Reference Range Comments TROPONIN I (BEAKER) (test jinb=477) 0.02 ng/mL 0.00-0.03 Troponin I (TnI) levels [...] acidosis, acute neurological disease, and persistent tachyarrhythmia.POCT-GLUCOSE [id number] 09:41:00 Test Item Value Reference Range Comments POC-GLUCOSE METER (BEAKER) 228 mg/dL 70-110 TESTED AT [facility] [address] [facility] (test etid=7469) [facility] [address] RAD, CHEST, 1 VIEW, NON [id number] 07:41:00Reason for exam:->eval pneumoniaShould this be performed [...] represent atelectasis or pneumonitis. Signed: Zuleima Graff [facility] Verified Date/Time: 01/30/2017 07:41:41 ReadingLocation: [facility] B1 C013T Transitional Reading Room [id number] 02:54:00 Test Item Value Reference Range Comments MAGNESIUM (BEAKER) (test fesy=030) 1.6 mg/dL 1.6-2.6 BASIC METABOLIC [id number] 02:54:00 Test Item Value Reference Range Comments SODIUM (BEAKER) (test 137 meq/L 136-145 zizd=691) POTASSIUM (BEAKER) (test 3.8 meq/L 3.5-5.1 ujky=524) CHLORIDE (BEAKER) (test 104 meq/L 98-107 ydlk=450) CO2 (BEAKER) (test 19 meq/L 22-29 eudi=282) BLOOD UREA NITROGEN 48 mg/dL 7-21 (BEAKER) (test ncix=917) CREATININE (BEAKER) (test 1.76 mg/dL 0.57-1.25 csvw=497) GLUCOSE RANDOM (BEAKER) 217 mg/dL 70-105 (test verm=519) CALCIUM (BEAKER) (test 8.9 mg/dL 8.4-10.2 guby=333) EGFR (BEAKER) (test 38 mL/min/1.73 sq m ESTIMATED GFR IS NOT dgcs=0861) ACCURATE CREATININE CLEARANCE IN PREDICTING GLOMERULAR FILTRATION RATE. ESTIMATED GFR IS NOT APPLICABLE FOR DIALYSIS PATIENTS. RAPID INFLUENZA A&B [id number] 02:41:00 Test Item Value Reference Range Comments RAPID INFLUENZA A AG (BEAKER) (test Negative Negative, Inconclusive tpnj=1967) RAPID INFLUENZA B AG (BEAKER) (test Negative Negative, Inconclusive pyzc=7203) CBC W/PLT COUNT & AUTO [id number] 02:07:00 Test Item Value Reference Range Comments WHITE BLOOD CELL COUNT (BEAKER) (test oane=613) 10.6 K/ L 3.5-10.5 RED BLOOD CELL COUNT (BEAKER) (test opev=625) 4.75 M/ L 4.63-6.08 HEMOGLOBIN (BEAKER) (test zxro=219) 13.2 GM/DL 13.7-17.5 HEMATOCRIT (BEAKER) (test ksah=756) 42.4 % 40.1-51.0 MEAN CORPUSCULAR VOLUME (BEAKER) (test tnis=438) 89.3 fL 79.0-92.2 MEAN CORPUSCULAR HEMOGLOBIN (BEAKER) (test 27.8 pg 25.7-32.2 mtiw=313) MEAN CORPUSCULAR HEMOGLOBIN CONC (BEAKER) (test 31.1 GM/DL 32.3-36.5 fjzt=934) RED CELL DISTRIBUTION WIDTH (BEAKER) (test 16.8 % 11.6-14.4 efax=877) PLATELET COUNT (BEAKER) (test weuh=353) 202 K/CU MM 150-450 MEAN PLATELET VOLUME (BEAKER) (test pjkf=078) 10.7 fL 9.4-12.4 NUCLEATED RED BLOOD CELLS (BEAKER) (test 0 /100 WBC 0-0 gzfj=196) NEUTROPHILS RELATIVE PERCENT (BEAKER) (test 63 % dsdg=783) LYMPHOCYTES RELATIVE PERCENT (BEAKER) (test 17 % ccda=879) MONOCYTES RELATIVE PERCENT (BEAKER) (test 18 % nviq=543) EOSINOPHILS RELATIVE PERCENT (BEAKER) (test 1 % dnlo=174) BASOPHILS RELATIVE PERCENT (BEAKER) (test 0 % qtbp=451) NEUTROPHILS ABSOLUTE COUNT (BEAKER) (test 6.60 K/ L 1.78-5.38 fjqh=425) LYMPHOCYTES ABSOLUTE COUNT (BEAKER) (test 1.82 K/ L 1.32-3.57 jlgu=245) MONOCYTES ABSOLUTE COUNT (BEAKER) (test 1.94 K/ L 0.30-0.82 xymw=429) EOSINOPHILS ABSOLUTE COUNT (BEAKER) (test 0.10 K/ L 0.04-0.54 qwvg=162) BASOPHILS ABSOLUTE COUNT (BEAKER) (test 0.02 K/ L 0.01-0.08 kroi=582) IMMATURE GRANULOCYTES-RELATIVE PERCENT (BEAKER) 1 % 0-1 (test yjpt=1664) POCT-GLUCOSE [id number] 23:18:00 Test Item Value Reference Range Comments POC-GLUCOSE METER (BEAKER) 230 mg/dL 70-110 TESTED AT [facility] [address] [facility] (test ofcl=2775) [facility] [address]
--- NOTE | 2017-11-25 18:16 | RAD REPORT ---
EXAM DESCRIPTION: Ritu Single View11/25/2017 6:07 pm CLINICAL HISTORY: sob COMPARISON: October 2017 FINDINGS: The lungs appear clear of acute infiltrate. The heart is mildly enlarged. Pacemaker leads are in place. IMPRESSION: No acute abnormalities displayed
[2017-11-25 18:19] LABS: Absolute Lymphocytes (CBC) 1.6 K/uL (0.7-4.9); Absolute Monocytes 1.9 K/uL (0.1-1.3); Absolute Neutrophil 7.1 K/uL (1.8-8.0); Basophils % 0.4 % (0-1.3); Eosinophils % 1.2 % (0-4.4); Hematocrit 36.2 % (39.6-49.0); Lymphocytes % 14.7 % (15.3-44.8); MCH 32.6 pg (27.0-35.0); MCV 95.7 fL (80-100); MPV 8.8 fL (7.6-11.3); Monocytes % 17.8 % (3.3-12.3); RBC Red Blood Cell Count 3.79 M/uL (4.33-5.43)
[2017-11-25 18:20] LABS: ALT/SGPT 152 U/L (12-78); AST/SGOT 64 U/L (15-37); Albumin 2.9 g/dL (3.4-5.0); Alkaline Phosphatase 221 U/L (45-117); BUN Blood Urea Nitrogen 43 mg/dL (7-18); Bicarbonate 26 mmol/L (21-32); Bilirubin Direct 3.4 mg/dL (0-0.2); Bilirubin Total 3.8 mg/dL (0.2-1.0); Glucose Level 264 mg/dL (74-106); Lipase 35 U/L (73-393); Magnesium 2.2 mg/dL (1.8-2.4); NT PRO-BNP 2851 pg/mL (<125); Potassium 4.1 mmol/L (3.5-5.1); Protein, Total 7.3 g/dL (6.4-8.2); Sodium Level 138 mmol/L (136-145); Troponin (Emerg Dept Use Only) < 0.02 ng/mL (0.0-0.045)
[2017-11-25 18:25] LABS: Protime INR 2.11
[2017-11-25] MEDS ORDERED: NA CHLORIDE 0.9% 1,000 ML ONE (18:38)
--- NOTE | 2017-11-25 19:11 | RAD REPORT ---
EXAM DESCRIPTION: CT - Abdomen Pelvis Wo Contrast - 11/25/2017 7:00 pm CLINICAL HISTORY: Abdominal pain COMPARISON: None TECHNIQUE: Computed axial tomography of the abdomen and pelvis was obtained. IV and oral contrast we re not requested. All CT scans are performed using dose optimization technique as appropriate and may include automated exposure control or mA/KV adjustment according to patient size. FINDINGS: The evaluation of solid organs, vessels and bowel is limited secondary to the lack of con trast administration. The liver, spleen, pancreas, adrenals and kidneys appear grossly normal. Gallstones are present. The appendix is normal. There is no evidence of diverticulitis. A moderate amount of stool is present throughout the colon IMPRESSION: Cholelithiasis Moderate amount of stool throughout the colon.
[2017-11-25 19:21] LABS: Urine White Blood Cell Casts OK
[2017-11-25 19:22] LABS: Anisocytosis 1+; Blood Morphology Comment NOTED (NOT SEEN); Platelet Estimate ADEQ
--- NOTE | 2017-11-25 20:12 | RAD REPORT ---
EXAM DESCRIPTION: US - Abdomen Exam Limited - 11/25/2017 7:56 pm CLINICAL HISTORY: Abdominal pain. COMPARISON: CT 11/25/2017 FINDINGS: Gallstones are present. Gallbladder wall is thickened measuring 5 millimeters. . The biliary tree is normal caliber. IMPRESSION: Cholelithiasis. Thickened gallbladder wall probably indicates cholecystitis
--- NOTE | 2017-11-25 21:07 | ER ---
Nurse's Notes [facility] Name: Ely Coley Age: 72 yrs Sex: Male : 1945 Arrival Date: 11/25/2017 Time: 17:09 Bed 5 Private MD: Diagnosis: Cholecystitis;Cholelithiasis;Orthostatic hypotension;Abnormal results of liver function studies Presentation: 11/25 17:11 Presenting complaint: EMS states: pt c/o feeling dizzy and light headed all day, also iw was getting low BP readings at home, pt had recent med change by Dr. Hernandez, spironolactone was increased to twice a day on Nov 10, EMS reports BP was 88/55 on scene, up to 118/75 en route to ER, pt also c/o mild left sided CP over pacemaker that has now resolved completely, pt has hx of Afib. Transition of care: patient was not received from another setting of care. Onset of symptoms was November 25, 2017. Risk Assessment: Do you want to hurt yourself or someone else? Patient reports no desire to harm self or others. Initial Sepsis Screen: Does the patient meet any 2 criteria? No. Patient's initial sepsis screen is negative. Does the patient have a suspected source of infection? No. Patient's initial sepsis screen is negative. Care prior to arrival: None. 17:11 Method Of Arrival: EMS: [facility] iw 17:11 Acuity: MITCH 3 iw Historical: - Allergies: 17:17 steroids; iw - Home Meds: 18:42 PreserVision AREDS 7,160-113-100 [id number] oral tab daily [Active]; spironolactone iw 25 mg Oral tab 1 tab 2 times per day [Active]; Eliquis 2.5 mg oral tab 1 tab 2 times per day [Active]; glipizide 5 mg Oral tr24 1 tab once daily [Active]; furosemide 40 mg Oral tab 1 tab once daily [Active]; amiodarone 200 mg Oral tab 1 tab 2 times per day [Active]; - PMHx: 17:17 Atrial Fib; CVA; Diabetes - NIDDM; iw - PSHx: 17:17 pacemaker; right knee; iw - Immunization history:: Adult Immunizations not up to date. - Social history:: Smoking status: Patient/guardian denies using tobacco. - Ebola Screening: : Patient negative for fever greater than or equal to 101.5 degrees Fahrenheit, and additional compatible Ebola Virus Disease symptoms Patient denies exposure to infectious person Patient denies travel to an Ebola-affected area in the 21 days before illness onset No symptoms or risks identified at this time. Screenin:34 Abuse screen: Denies threats or abuse. Denies injuries from another. Nutritional iw screening: No deficits noted. Tuberculosis screening: No symptoms or risk factors identified. Fall Risk IV access (20 points). Assessment: 17:57 General: Appears in no apparent distress. Behavior is calm, cooperative. Pain: Denies iw pain. Neuro: Level of Consciousness is awake, alert, obeys commands, Oriented to person, place, time, Moves all extremities. Full function. Cardiovascular: Patient's skin is warm and dry. Respiratory: Respiratory effort is even, unlabored, Respiratory pattern is regular, symmetrical. GI: Abdomen is round non-distended, Abd is soft and non tender X 4 quads. Reports constipation. Derm: Skin is intact, is thin, Skin is jaundiced. Musculoskeletal: Range of motion: intact in all extremities. 18:24 Reassessment: Patient appears in no apparent distress at this time. Patient and/or iw family updated on plan of care and expected duration. Pain level reassessed. pt assisted to standing position to use urinal, BP dropped to 83/58. pt reports only mild dizziness, pt assisted back to bed, urine collected, approx 50 mL out, TERRIE Hercules notified, new orders given. 19:11 Reassessment: Patient appears in no apparent distress at this time. No changes from jd3 previously documented assessment. Patient and/or family updated on plan of care and expected duration. Pain level reassessed. Patient is alert, oriented x 3, equal unlabored respirations, skin warm/dry/pink. 20:44 Reassessment: Patient appears in no apparent distress at this time. No changes from jd3 previously documented assessment. Patient and/or family updated on plan of care and expected duration. Pain level reassessed. Patient is alert, oriented x 3, equal unlabored respirations, skin warm/dry/pink. 21:45 Reassessment: Patient appears in no apparent distress at this time. No changes from jd3 previously documented assessment. Patient and/or family updated on plan of care and expected duration. Pain level reassessed. Patient is alert, oriented x 3, equal unlabored respirations, skin warm/dry/pink. 22:45 Reassessment: Patient appears in no apparent distress at this time. No changes from jd3 previously documented assessment. Patient and/or family updated on plan of care and expected duration. Pain level reassessed. Patient is alert, oriented x 3, equal unlabored respirations, skin warm/dry/pink. 23:06 Reassessment: Patient appears in no apparent distress at this time. No changes from jd3 previously documented assessment. Patient and/or family updated on plan of care and expected duration. Pain level reassessed. Patient is alert, oriented x 3, equal unlabored respirations, skin warm/dry/pink. 23:59 Reassessment: Patient appears in no apparent distress at this time. No changes from jd3 previously documented assessment. Patient and/or family updated on plan of care and expected duration. Pain level reassessed. Patient is alert, oriented x 3, equal unlabored respirations, skin warm/dry/pink. 11/26 00:12 Reassessment: Patient appears in no apparent distress at this time. No changes from jd3 previously documented assessment. Patient and/or family updated on plan of care and expected duration. Pain level reassessed. Patient is alert, oriented x 3, equal unlabored respirations, skin warm/dry/pink. Vital Signs: 11/25 17:10 BP 115 / 51; Pulse 60; Resp 16; Temp 98.2; Pulse Ox 98% on R/A; Weight 103.42 kg; iw Height 6 ft. 0 in. (182.88 cm); Pain 0/10; 17:58 BP 114 / 71; Pulse 60; Resp 16; Pulse Ox 97% on R/A; Pain 0/10; iw 18:20 BP 83 / 58; Pulse 60; Resp 16; Pulse Ox 98% on R/A; Pain 0/10; iw 18:26 BP 125 / 50; Pulse 60; Resp 16; Pulse Ox 96% on R/A; Pain 0/10; iw 18:37 BP 97 / 44; Pulse 60; Resp 16; Pulse Ox 97% on R/A; Pain 0/10; iw 18:49 BP 103 / 47; Pulse 60; Resp 16; Pulse Ox 100% on R/A; Pain 0/10; iw 19:12 BP 118 / 61; Pulse 60; Resp 17 S; Pulse Ox 100% on R/A; jd3 20:44 BP 117 / 91; Pulse 60; Resp 19 S; Pulse Ox 99% on R/A; jd3 23:17 BP 151 / 66; Pulse 60; Resp 16 S; Pulse Ox 98% on R/A; jd3 11/26 00:00 BP 105 / 56; Pulse 60; Resp 16 S; Pulse Ox 100% on R/A; jd3 11/25 17:10 Body Mass Index 30.92 (103.42 kg, 182.88 cm) iw ED Course: 11/25 17:09 Patient arrived in ED. iw 17:10 Arm band placed on. iw 17:15 Triage completed. iw 17:15 Diomedes Negro PA is PHCP. jr8 17:15 Jerome Morales MD is Attending Physician. jr8 17:21 Anel Alegre, RN is Primary Nurse. iw 17:37 EKG done, by engineering technologist. reviewed by Diomedes FALCON. 3 17:56 Initial lab(s) drawn, by az, sent to lab. Inserted saline lock: 22 gauge in left iw antecubital area, using aseptic technique. Blood collected. 17:58 Patient has correct armband on for positive identification. Placed in gown. iw 18:06 X-ray completed. Portable x-ray completed in exam room. Patient tolerated procedure mh1 well. 18:07 XRAY Chest (1 view) In Process Unspecified. EDMS 19:00 CT Abd/Pelvis - Without Cont In Process Unspecified. EDMS 19:03 Primary Nurse role handed off by Anel Alegre, JUDSON jd3 19:03 Chris aCstrejon, JUDSON is Primary Nurse. jd3 19:56 US Abdomen Limited In Process Unspecified. EDMS 21:05 Edy Frias MD is Hospitalizing Provider. jr8 11/26 00:00 No provider procedures requiring assistance completed. Patient admitted, IV remains in jd3 place. Administered Medications: 11/25 18:37 Drug: NS 0.9% 1000 ml Route: IV; Rate: 1000 ml; Site: left antecubital; iw 23:14 Follow up: Response: No adverse reaction; IV Status: Completed infusion jd3 21:56 Drug: Mefoxin 1 grams Route: IVPB; Infused Over: 30 mins; Site: left antecubital; jd3 23:13 Follow up: Response: No adverse reaction; IV Status: Completed infusion jd3 21:57 Drug: Flagyl 500 mg Volume: 100 ml; Route: IVPB; Rate: 200 ml/hr; Infused Over: 30 jd3 mins; Site: left antecubital; 23:13 Follow up: Response: No adverse reaction; IV Status: Completed infusion jd3 Outcome: 21:06 Decision to Hospitalize by Provider. marta 11/26 00:12 Admitted to Tele accompanied by tech, via stretcher, room 428, with chart, Report jd3 called to Esperanza ROPER Condition: stable Instructed on the need for admit, Demonstrated understanding of instructions. 00:21 Patient left the ED. jd3 Signatures: Dispatcher [employer] EDLeana Kamara 1 Anel Alegre RN RN iw Roszak, Josh, PA PA jr8 Chris Castrejon RN RN jd3 Montes, Shakira 3 Corrections: (The following items were deleted from the chart) 11/25 23:06 22:45 Reassessment: Patient appears in no apparent distress at this time. No changes jd3 from previously documented assessment. Patient and/or family updated on plan of care and expected duration. Pain level reassessed. Patient is alert, oriented x 3, equal unlabored respirations, skin warm/dry/pink. jd3
--- NOTE | 2017-11-25 21:07 | EDPHYS ---
Physician Documentation [facility] Name: Ely Coley Age: 72 yrs Sex: Male : 1945 Arrival Date: 11/25/2017 Time: 17:09 Bed 5 Private MD: ED Physician Jerome Morales HPI: 11/25 19:08 This 72 yrs old Male presents to ER via EMS with complaints of Blood Pressure jr8 Problem, Dizziness. 19:08 Patient stated that he has been slightly more short of breath lately. Stated that today jr8 felt dizzy. Blood pressure was low. Came to ED at that time. . Severity of symptoms: At their worst the symptoms were moderate in the emergency department the symptoms are unchanged. The patient has not experienced similar symptoms in the past. The patient has not recently seen a physician. Historical: - Allergies: 17:17 steroids; iw - Home Meds: 18:42 PreserVision AREDS 7,160-113-100 [id number] oral tab daily [Active]; spironolactone iw 25 mg Oral tab 1 tab 2 times per day [Active]; Eliquis 2.5 mg oral tab 1 tab 2 times per day [Active]; glipizide 5 mg Oral tr24 1 tab once daily [Active]; furosemide 40 mg Oral tab 1 tab once daily [Active]; amiodarone 200 mg Oral tab 1 tab 2 times per day [Active]; - PMHx: 17:17 Atrial Fib; CVA; Diabetes - NIDDM; iw - PSHx: 17:17 pacemaker; right knee; iw - Immunization history:: Adult Immunizations not up to date. - Social history:: Smoking status: Patient/guardian denies using tobacco. - Ebola Screening: : Patient negative for fever greater than or equal to 101.5 degrees Fahrenheit, and additional compatible Ebola Virus Disease symptoms Patient denies exposure to infectious person Patient denies travel to an Ebola-affected area in the 21 days before illness onset No symptoms or risks identified at this time. ROS: 19:08 Eyes: Negative for injury, pain, redness, and discharge, ENT: Negative for injury, jr8 pain, and discharge, Neck: Negative for injury, pain, and swelling, Cardiovascular: Negative for chest pain, palpitations, and edema, Abdomen/GI: Negative for abdominal pain, nausea, vomiting, diarrhea, and constipation, Back: Negative for injury and pain, MS/Extremity: Negative for injury and deformity, Skin: Negative for injury, rash, and discoloration. 19:08 Respiratory: Positive for shortness of breath, Negative for cough, dyspnea on exertion, pleurisy, sputum production, wheezing. 19:08 Neuro: Positive for dizziness, Negative for altered mental status, gait disturbance, headache, hearing loss, loss of consciousness, numbness, seizure activity, speech changes, syncope, near syncope, tingling, tinnitus, tremor, visual changes, weakness. Exam: 19:08 Eyes: Pupils equal round and reactive to light, extra-ocular motions intact. Lids and jr8 lashes normal. Conjunctiva and sclera are not injected. Sclera icteric. Cornea within normal limits. Periorbital areas with no swelling, redness, or edema. ENT: Nares patent. No nasal discharge, no septal abnormalities noted. Tympanic membranes are normal and external auditory canals are clear. Oropharynx with no redness, swelling, or masses, exudates, or evidence of obstruction, uvula midline. Mucous membranes moist. Neck: Trachea midline, no thyromegaly or masses palpated, and no cervical lymphadenopathy. Supple, full range of motion without nuchal rigidity, or vertebral point tenderness. No Meningismus. Cardiovascular: Regular rate and rhythm with a normal S1 and S2. No gallops, murmurs, or rubs. Normal PMI, no JVD. No pulse deficits. Respiratory: Lungs have equal breath sounds bilaterally, clear to auscultation and percussion. No rales, rhonchi or wheezes noted. No increased work of breathing, no retractions or nasal flaring. Abdomen/GI: Soft, non-tender, with normal bowel sounds. No distension or tympany. No guarding or rebound. No evidence of tenderness throughout. Back: No spinal tenderness. No costovertebral tenderness. Full range of motion. MS/ Extremity: Pulses equal, no cyanosis. Neurovascular intact. Full, normal range of motion. Neuro: Awake and alert, GCS 15, oriented to person, place, time, and situation. Cranial nerves II-XII grossly intact. Motor strength 5/5 in all extremities. Sensory grossly intact. Cerebellar exam normal. Normal gait. 19:08 Skin: Appearance: Color: jaundiced, Temperature: normal temperature, Moisture: normal moisture, petechiae, not noted. Vital Signs: 17:10 BP 115 / 51; Pulse 60; Resp 16; Temp 98.2; Pulse Ox 98% on R/A; Weight 103.42 kg; iw Height 6 ft. 0 in. (182.88 cm); Pain 0/10; 17:58 BP 114 / 71; Pulse 60; Resp 16; Pulse Ox 97% on R/A; Pain 0/10; iw 18:20 BP 83 / 58; Pulse 60; Resp 16; Pulse Ox 98% on R/A; Pain 0/10; iw 18:26 BP 125 / 50; Pulse 60; Resp 16; Pulse Ox 96% on R/A; Pain 0/10; iw 18:37 BP 97 / 44; Pulse 60; Resp 16; Pulse Ox 97% on R/A; Pain 0/10; iw 18:49 BP 103 / 47; Pulse 60; Resp 16; Pulse Ox 100% on R/A; Pain 0/10; iw 19:12 BP 118 / 61; Pulse 60; Resp 17 S; Pulse Ox 100% on R/A; jd3 20:44 BP 117 / 91; Pulse 60; Resp 19 S; Pulse Ox 99% on R/A; jd3 23:17 BP 151 / 66; Pulse 60; Resp 16 S; Pulse Ox 98% on R/A; jd3 11/26 00:00 BP 105 / 56; Pulse 60; Resp 16 S; Pulse Ox 100% on R/A; jd3 11/25 17:10 Body Mass Index 30.92 (103.42 kg, 182.88 cm) iw MDM: 11/25 17:15 Patient medically screened. jr8 21:00 Data reviewed: vital signs, nurses notes, lab test result(s), radiologic studies, CT jr8 scan, plain films, ultrasound, and as a result, I will admit patient. Data interpreted: Pulse oximetry: on room air is 99 %. Interpretation: normal. Counseling: I had a detailed discussion with the patient and/or guardian regarding: the historical points, exam findings, and any diagnostic results supporting the discharge/admit diagnosis, lab results, radiology results, the need for further work-up and treatment in the hospital. ED course: Dr. Frias consulted and will see patient . 21:05 Physician consultation: Declan Padron MD was called at 21:05, was contacted at 21:05, jr8 regarding admission, to the medical/surgical unit. consult, patient's condition, and will see patient. 11/25 17:39 Order name: Basic Metabolic Panel; Complete Time: 18:37 jr8 11/25 17:39 Order name: CBC with Diff; Complete Time: 19:28 jr8 11/25 17:39 Order name: LFT's; Complete Time: 18:37 jr8 11/25 17:39 Order name: Magnesium; Complete Time: 18:37 jr8 11/25 17:39 Order name: NT PRO-BNP; Complete Time: 18:37 jr8 11/25 17:39 Order name: PT-INR; Complete Time: 18:37 jr8 11/25 17:39 Order name: Troponin (emerg Dept Use Only); Complete Time: 18:37 jr8 11/25 17:39 Order name: XRAY Chest (1 view); Complete Time: 18:18 jr8 11/25 17:39 Order name: Lipase; Complete Time: 18:37 jr8 11/25 18:30 Order name: CBC Smear Scan; Complete Time: 19:28 EDMS 11/25 18:32 Order name: Urine Dipstick--Ancillary (enter results); Complete Time: 21:28 mt 11/25 18:38 Order name: CT Abd/Pelvis - Without Cont; Complete Time: 19:14 jr8 11/25 19:15 Order name: US Abdomen Limited; Complete Time: 20:14 jr8 11/25 17:39 Order name: EKG; Complete Time: 17:40 jr8 11/25 17:39 Order name: Cardiac monitoring; Complete Time: 18:13 jr8 11/25 17:39 Order name: EKG - Nurse/Tech; Complete Time: 18:13 jr8 11/25 17:39 Order name: IV Saline Lock; Complete Time: 18:27 jr8 11/25 17:39 Order name: Labs collected and sent; Complete Time: 18:28 jr8 11/25 17:39 Order name: O2 Per Protocol; Complete Time: 18:13 jr8 11/25 17:39 Order name: O2 Sat Monitoring; Complete Time: 18:13 jr8 11/25 21:40 Order name: CONS Physician Consult EDMS Administered Medications: 18:37 Drug: NS 0.9% 1000 ml Route: IV; Rate: 1000 ml; Site: left antecubital; iw 23:14 Follow up: Response: No adverse reaction; IV Status: Completed infusion jd3 21:56 Drug: Mefoxin 1 grams Route: IVPB; Infused Over: 30 mins; Site: left antecubital; jd3 23:13 Follow up: Response: No adverse reaction; IV Status: Completed infusion jd3 21:57 Drug: Flagyl 500 mg Volume: 100 ml; Route: IVPB; Rate: 200 ml/hr; Infused Over: 30 jd3 mins; Site: left antecubital; 23:13 Follow up: Response: No adverse reaction; IV Status: Completed infusion jd3 Disposition: 11/25/17 21:06 Hospitalization ordered by Edy Frias for Inpatient Admission. Preliminary diagnosis are Cholecystitis, Cholelithiasis, Orthostatic hypotension, Abnormal results of liver function studies. - Bed requested for Telemetry/MedSurg (Inpatient). - Status is Inpatient Admission. jd3 - Condition is Stable. - Problem is new. - Symptoms are unchanged. UTI on Admission? No Addendum: 11/27/2017 20:56 Co-signature as Attending Physician, Jerome Morales MD. r n Signatures: Dispatcher [employer] EDMS Janny Welsh RN RN kl Williams, Irene, RN RN iw Nieto, Roman, MD MD rn Roszak, Josh, PA PA jr8 Chris Castrejno RN RN jd3 Corrections: (The following items were deleted from the chart) 11/25 21:37 21:06 Hospitalization Ordered by Edy Frias MD for Inpatient Admission. Preliminary jr8 diagnosis is Cholecystitis; Cholelithiasis; Orthostatic hypotension. Bed requested for Telemetry/MedSurg (Inpatient). Status is Inpatient Admission. Condition is Stable. Problem is new. Symptoms are unchanged. UTI on Admission? No. jr8 22:49 21:37 11/25/2017 21:06 Hospitalization Ordered by Edy Frias MD for Inpatient kl Admission. Preliminary diagnosis is Cholecystitis; Cholelithiasis; Orthostatic hypotension; Abnormal results of liver function studies. Bed requested for Telemetry/MedSurg (Inpatient). Status is Inpatient Admission. Condition is Stable. Problem is new. Symptoms are unchanged. UTI on Admission? No. jr8 11/26 00:21 11/25 22:49 11/25/2017 21:06 Hospitalization Ordered by Edy Frias MD for Inpatient jd3 Admission. Preliminary diagnosis is Cholecystitis; Cholelithiasis; Orthostatic hypotension; Abnormal results of liver function studies. Bed requested for Telemetry/MedSurg (Inpatient). Status is Inpatient Admission. Condition is Stable. Problem is new. Symptoms are unchanged. UTI on Admission? No. kl
[2017-11-25 21:15] LABS: Urine Blood NEGATIVE (NEG); Urine Glucose TRACE (NEG); Urine Protein NEGATIVE (NEG)
[2017-11-25] MEDS ORDERED: CEFOXITIN/SWI 1gm 1 GM/10 ML SYR ONE (21:54)
[2017-11-25] MEDS ORDERED: METRONIDAZOLE 500mg IVPB 500 MG/100 ML BAG IV ONE (21:54)
[2017-11-26] MEDS ORDERED: ONDANSETRON 4 MG/2 ML VIAL IV PRN (01:17)
[2017-11-26] MEDS: NA CHLORIDE 0.9% 1,000 ML IV SCH ×3 (02:17→21:17)
[2017-11-26] MEDS: CIPROFLOXACIN 400mg IV 400 MG/200 ML BAG IV SCH ×2 (02:24→17:14)
[2017-11-26 02:45] VITALS: BMI 30.9
[2017-11-26 05:22] LABS: Absolute Lymphocytes (CBC) 1.6 K/uL (0.7-4.9); Absolute Monocytes 1.3 K/uL (0.1-1.3); Absolute Neutrophil 5.2 K/uL (1.8-8.0); Basophils % 0.9 % (0-1.3); Eosinophils % 2.1 % (0-4.4); Hematocrit 34.5 % (39.6-49.0); Lymphocytes % 19.5 % (15.3-44.8); MCH 32.6 pg (27.0-35.0); MPV 8.9 fL (7.6-11.3); RBC Red Blood Cell Count 3.63 M/uL (4.33-5.43)
[2017-11-26 05:26] LABS: Monocytes % 15.3 % (3.3-12.3)
--- NOTE | 2017-11-26 05:29 | P.HP ---
Certification for Inpatient Patient admitted to: Inpatient With expected LOS: >2 Midnights Practitioner: I am a practitioner with admitting privileges, knowledge of patient current condition, hospital course, and medical plan of care. Services: Services provided to patient in accordance with Admission requirements found in Title 42 Section 412.3 of the Code of Federal Regulations Patient History Date of Service: 11/25/17 Reason for admission: Cholelithiasis/cholecystitis History of Present Illness: Mr Coley is a 72-year-old male with history of atrial fibrillation anticoagulation with apixaban, hypertension, diabetes mellitus types 2, who came to the ER complaining of dizziness and lightheadedness. His symptoms started today. He also was complaining of right upper quadrant pain associated with nausea. He denied any fever or chills. He has never had these kind of symptoms in the past. EMS from the patient hypotensive 88/55 Lab work remarkable for normal WBC count, abnormal liver function test with elevated bilirubin, transaminase and alk-phos. His renal function is also abnormal, creatinine is 2.0. CT abdomen and pelvis showed cholelithiasis. Subsequent abdominal ultrasound remarkable for cholelithiasis with possible cholecystitis. Allergies steroids Allergy (Unknown, Uncoded 10/19/17 02:14) Unknown Home medications list reviewed: Yes Home Medications: Amiodarone HCl [Cordarone*] 200 mg PO Q12H 10/19/17 Apixaban [Eliquis *] 2.5 mg PO BID 10/19/17 Spironolactone [Aldactone*] 25 mg PO BID 10/19/17 glipiZIDE [Glipizide] 5 mg PO DAILY 10/19/17 Insulin Glargine Human [Lantus*] 10 units SQ DAILY WITH BREAKFAST #1 vial Furosemide [Lasix*] 20 mg PO BID 11/26/17 - Past Medical/Surgical History Has patient received pneumonia vaccine in the past: No Diabetic: Yes -: History CVA -: Atrial fibrillation -: DM -: HTN -: History of blood clot in the right arm -: GERD -: Moderate pulmonary hypertension -: CHF, diastolic dysfunction -: R. total knee replacement -: kristian. cataract sx -: Right thigh staph inf. -: L. big toe amputated -: Back sx Psychosocial/ Personal History: The patient is . - Family History Mother -: Heart disease Father -: Heart disease Brother -: Heart disease, Hypertension, Diabetes, Cancer - Social History Smoking Status: Former smoker Alcohol use: No CD- Drugs: No Caffeine use: Yes Place of Residence: Home Review of Systems 10-point ROS is otherwise unremarkable Physical Examination - Vital Signs Temperature: 98.0 F Blood Pressure: 124/57 Pulse: 60 Respirations: 18 Pulse Ox (%): 100 - Physical Exam General: Alert, In no apparent distress, Other (Jaundice) HEENT: Atraumatic, PERRLA, Mucous membr. moist/pink, EOMI, Scleral icterus Neck: Supple, 2+ carotid pulse no bruit, No LAD, Without JVD or thyroid abnormality Respiratory: Clear to auscultation bilaterally, Normal air movement Cardiovascular: Regular rate/rhythm, Normal S1 S2 Gastrointestinal: Normal bowel sounds, Tenderness (Right upper quadrant tenderness to palpation) Musculoskeletal: No tenderness Integumentary: No rashes Neurological: Normal speech, Normal strength at 5/5 x4 extr, Normal tone, Normal affect Lymphatics: No axilla or inguinal lymphadenopathy - Studies Laboratory Data (last 24 hrs) 11/25/17 17:50: PT 25.1 H, INR 2.11 11/25/17 17:50: WBC 10.7, Hgb 12.3 L, Hct 36.2 L, Plt Count 159 11/25/17 17:50: Sodium 138, Potassium 4.1, BUN 43 H, Creatinine 2.10 H, Glucose 264 H, Magnesium 2.2, Total Bilirubin 3.8 H, AST 64 H, ALT 152 H, Alkaline Phosphatase 221 H, Lipase 35 L Assessment and Plan - Problems (Diagnosis) (1) Cholelithiasis Current Visit: Yes Status: Acute Qualifiers: Cholelithiasis location: gallbladder Cholecystitis presence: with cholecystitis Cholecystitis acuity: acute Biliary obstruction: without biliary obstruction Qualified Code(s): K80.00 - Calculus of gallbladder with acute cholecystitis without obstruction (2) Cholecystitis Current Visit: Yes Status: Acute (3) A-fib Onset Date: 08/28/15 Current Visit: No Status: Chronic Qualifiers: Atrial fibrillation type: chronic Qualified Code(s): I48.2 - Chronic atrial fibrillation (4) Diabetes mellitus Onset Date: 08/28/15 Current Visit: No Status: Chronic Qualifiers: Diabetes mellitus type: type 2 Diabetes mellitus residential insulin use: without superintendent [employer] use Diabetes mellitus complication status: with neurologic complications - Plan Mr. Stafford will be admitted to the hospital due to cholelithiasis with possible acute cholecystitis. Will continue IV fluids, empiric antibiotic treatment, and symptomatic medication for pain. Will keep him NPO. Consult surgery and GI specialist. - Advance Directives Does patient have a Living Will: No Does patient have a Durable POA for Healthcare: Yes - Code Status/Comfort Care Code Status Assessed: Yes Code Status: Full Code
[2017-11-26 05:41] LABS: Albumin 2.6 g/dL (3.4-5.0); Bilirubin Total 3.2 mg/dL (0.2-1.0); Potassium 3.9 mmol/L (3.5-5.1); Protein, Total 6.8 g/dL (6.4-8.2)
[2017-11-26] MEDS: METRONIDAZOLE 500mg IVPB 500 MG/100 ML BAG IV SCH ×3 (05:42→22:21)
[2017-11-26 05:47] LABS: Urine Appearance CLEAR; Urine Blood NEGATIVE (NEG); Urine Color DK YELLOW; Urine Glucose 1+ (NEG); Urine Protein NEGATIVE (NEG); Urine pH 5.5 (5.0-7.0)
[2017-11-26 06:09] LABS: Urine Microscopic Reflex NO UMIC
[2017-11-26 06:14] LABS: Urine Bilirubin 1+ (NEG)
--- NOTE | 2017-11-26 06:51 | EKG ---
Test Date: 2017-11-25 Test Time: 17:25:47 Engine Head Repairer: MEHDI MEASUREMENT RESULTS: Intervals: Rate: 60 [place]: QRSD: 120 QT: 484 QTc: 484 [place]: P: WI: QRS: -2 T: 20 INTERPRETIVE STATEMENTS: Wide QRS rhythm Nonspecific intraventricular conduction delay Borderline ECG Compared to ECG 10/18/2017 23:24:01 Uncertain supraventricular rhythm now present Atrial-paced complex(es) or rhythm no longer present Ventricular-paced complex(es) or rhythm no longer present Electronically Signed On 11-26-17 06:49:08 CDT by Laci Hernandez
[2017-11-26] MEDS ORDERED: POTASSIUM CL SA 10 MEQ TAB PO ONE (09:00)
[2017-11-26] MEDS: FUROSEMIDE 20 MG TABLET PO SCH ×2 (11:25→20:50)
[2017-11-26] MEDS: SPIRONOLACTONE 25 MG TABLET PO SCH ×2 (11:26→20:50)
--- NOTE | 2017-11-26 13:52 | PN ---
Date of Progress Note: 11/26/2017 History: The patient seen and examined. Chart reviewed. Case discussed with RN and Dr. Frias as well as Dr. Mayer. The patient states his pain is significantly better. Still having some nausea. Review of Systems: Negative except as above. Medications: List reviewed. Code Status: Full. Physical Examination: Vital signs: Temperature 98.1, heart rate 60, blood pressure 128/62, respirations 18, O2 100% on room air. General: Awake, alert, oriented x3. Elderly male, somewhat ill-appearing, obese. CV: S1, S2. Peripheral pulses present. No murmurs. Respiratory: Clear to auscultation bilaterally. No wheezing or stridor. No use of accessory muscles. Gastrointestinal: Abdomen is soft. Mild tenderness to palpation of the right upper quadrant. No guarding or rigidity. No palpable masses. Bowel sounds positive. Extremities: No clubbing, cyanosis, or edema. Neuro: Cranial nerves 2-12 intact grossly. No focal neurological deficit. Speech is normal. Laboratory Data: Sodium 141, potassium 3.9, chloride 107, CO2 27, BUN 36, creatinine 1.8, glucose 148, calcium 8.2, total bilirubin 3.2, AST 43, ALT 123, alkaline phosphatase 205. WBC 8.4, H and H 11.9, 34.5, platelets 148, neutrophils 62%. Assessment And Plan: A 72-year-old male with: 1. Acute cholecystitis with cholelithiasis with obstruction. total bilirubin and liver enzymes are elevated. Possible occult ductal stone may be present. Dr. Mena and Dr. Mayer have been consulted. Dr. Frias unable to operate as he will be leaving [facility]. The patient's INR is above 2. Therefore, Dr. Mayer was consulted. We will continue IV antibiotics and IV fluids. We will place on clear liquid diet as no surgery is anticipated today. 2. Atrial fibrillation, chronic, on apixaban, which has been held. We will switch to Lovenox until ready for surgery. 3. Diabetes mellitus type 2 with long-term use of insulin with hyperglycemia. 4. Obesity, BMI 30.9. 5. Acute on chronic kidney injury stage 3. Creatinine is improved, still slightly above baseline. We will continue to monitor. Continue IV fluids. 6. Elevated liver enzymes and total bilirubin may be secondary to occult ductal stone. 7. Status post pacemaker, unable to get MRCP, may need ERCP prior to surgery. Addendum: pacer is MRI compatible. MRCP shows ductal stone. ERCP scheduled for am. /AZEB Voice ID: [id number] Report ID: [id number] MTDD
[2017-11-26 15:37] LABS: Protime INR 1.45
--- NOTE | 2017-11-26 15:59 | RAD REPORT ---
EXAM DESCRIPTION: MRI - Cholangiogram - 11/26/2017 3:12 pm CLINICAL HISTORY: Cholelithiasis, abdominal pain COMPARISON: Gallbladder ultrasound November 25, CT imaging November 25 TECHNIQUE: Axial and coronal heavily T2 weighted sequences were obtained. Coronal T2 HASTE fat satur ation static and reconstruction imaging generated and reviewed. Horizontal and vertical axis rotation al views obtained using maximum intensity projection (MIP) protocol. FINDINGS: Gallbladder is well filled but not dilated. Small gallstones are seen. No significant gall bladder wall edema on MRCP imaging. No pericholecystic fluid seen. No intrahepatic biliary tree dilatation seen. Extrahepatic biliary tree is dilated to 10-11 mm down i nto the head of the pancreas region. There is an a abrupt truncation of the biliary tree with a 6-7 m illimeter filling defect in the distal common bile duct. The T2 weighted source imaging shows a fuller ing artifact in this location. On CT imaging there is no biliary stent or air. No history to indicate interventional procedure. This could be a small amount of pneumobilia that has developed possibly ai r within a duct stone. IMPRESSION: Abrupt truncation in the distal common bile duct head of the pancreas region likely from duct stone(s). Biliary tree is dilated to 10-11 mm proximal to the truncation site. Cholelithiasis.
--- NOTE | 2017-11-26 18:43 | CON ---
Date of Consultation: 11/26/2017 Reason: Gallstones. History Of Present Illness: The patient is a 72-year-old gentleman, who presents with 1 day history of some mild right upper quadrant pain, but has very dark urine almost orange in color and he has lig ht stools and he did not feel well yesterday and took his blood pressure and was found to be hypotens penelope, brought himself to the ER and he was admitted and I was consulted. His main concern was his diz ziness and lightheadedness and occasional nausea, but no vomiting. No bloating, belching, or heartbu rn. No blood in his stool. Light-colored stool, dark colored urine. No sore throat, runny nose, co ugh, headaches, or dizziness. No chest pain. No fever or chills. Review of Systems: Otherwise unremarkable. Past Medical History: History of stroke, atrial fibrillation, diabetes, hypertension, history of blo od clots in the right arm. He also has moderate pulmonary hypertension, CHF. Past Surgical History: Right total knee replacement, bilateral cataract surgery, right thigh staph i nfection, left big toe amputation, back surgery. Social History: He use to smoke, does not currently smoke. Does not drink alcohol. Family History: Significant for heart disease, hypertension, diabetes, and cancer in a brother of un known type. Physical Examination: Vital Signs: Stable. He is afebrile. General: He is awake, alert, and oriented x3. Head and Neck: He does have icterus. Cranial nerves 2 through 12 are grossly within normal limits. No neck masses. No JVD. Throat clear. Neck is supple. Chest: Clear. Heart: S1, S2. Abdomen: Soft, nondistended. Positive bowel sounds. Mild right upper quadrant tenderness. No rebo und, rigidity, or guarding. Extremities: Adequately perfused. Nontender. Neuro: Nonfocal. Laboratory Data: White count is 8.4, H and H is 11.9 and 34.5, platelets are 148. Neutrophil percen tage is normal. INR was 2.11. Please note, he is on Eliquis for atrial fibrillation. His total kristian irubin is 3.2 and was 3.8 yesterday with indirect component was 3.4. AST and ALT are elevated at 43 and 123. Alkaline phosphatase is elevated at 205. Lipase was 35. Albumin is 2.6. He had an abdome n and pelvis CT, which showed cholelithiasis. He did not get IV or oral contrast. The liver, spleen , pancreas, adrenal appeared grossly normal. The patient had an ultrasound done, which shows choleli thiasis, thickened gallbladder wall, and biliary tree appears to be normal. Assessment: A 72-year-old gentleman with abdominal pain, cholelithiasis, and jaundice. Recommendations: At this point, we need to stopped his Eliquis. He can be placed on Lovenox as need ed and we need an MRCP to determine the cause of biliary obstruction following which he will probably need an ERCP, and if his bile duct is negative, then we will proceed with cholecystectomy, but given his presentation, I am concerned about the essentially painless jaundice presenting and we may need to be concerned about malignancy in this patient. We will make further recommendations as the workup is completed. Meantime, the patient can remain on antibiotics and liquid diet until the workup is c ompleted. AMBER/AZEB Voice ID: [id number] Report ID: [id number]
[2017-11-27] MEDS: CIPROFLOXACIN 400mg IV 400 MG/200 ML BAG IV SCH ×2 (01:03→15:39)
[2017-11-27] MEDS: METRONIDAZOLE 500mg IVPB 500 MG/100 ML BAG IV SCH ×3 (05:56→22:21)
[2017-11-27] MEDS: NA CHLORIDE 0.9% 1,000 ML IV SCH ×2 (05:58→17:17)
[2017-11-27 06:03] LABS: Absolute Lymphocytes (CBC) 1.4 K/uL (0.7-4.9); Absolute Monocytes 1.3 K/uL (0.1-1.3); Absolute Neutrophil 4.2 K/uL (1.8-8.0); Basophils % 0.7 % (0-1.3); Eosinophils % 2.9 % (0-4.4); Hematocrit 34.6 % (39.6-49.0); Lymphocytes % 19.2 % (15.3-44.8); MCH 32.7 pg (27.0-35.0); MCV 94.2 fL (80-100); MPV 8.6 fL (7.6-11.3); Monocytes % 18.8 % (3.3-12.3); RBC Red Blood Cell Count 3.67 M/uL (4.33-5.43)
[2017-11-27 06:04] LABS: Protime INR 1.38
[2017-11-27] MEDS ORDERED: GLUCAGON 1 MG/VIAL ONE (07:18)
[2017-11-27] MEDS ORDERED: NA CHLORIDE 0.9% 1,000 ML ONE (07:19)
[2017-11-27] MEDS ORDERED: GENTAMICIN SULF 80 MG/2ML INJ ONE (07:19)
[2017-11-27] MEDS: SPIRONOLACTONE 25 MG TABLET PO SCH (09:00)
[2017-11-27] MEDS: FUROSEMIDE 20 MG TABLET PO SCH (09:00)
--- NOTE | 2017-11-27 11:52 | PN ---
Date of Progress Note: 11/27/2017 Subjective: The patient is awake and alert. No new complaints. Bowel sounds stable. Afebrile. La boratory data reviewed. MRCP reveals the patient had stones and possibly a mass in the common bile d uct. Abdomen is benign. Minimal tenderness in the right upper quadrant. He still has jaundice. Assessment: Chronic cholecystitis, cholelithiasis, choledocholithiasis, possible bile duct mass. Recommendations: Continue IV antibiotics and GI will proceed to do an ERCP this afternoon, and we wi ll await the results of that, following which, we will make further recommendation. If he does not h ave a mass then we will proceed with laparoscopic cholecystectomy on Wednesday. We will follow this pat ient closely. AMBER/AZEB Voice ID: [id number] Report ID: [id number]
[2017-11-27] MEDS ORDERED: EPHEDRINE SULF 50 MG/ML SYR ONE (13:29)
[2017-11-27] MEDS ORDERED: LIDOCAINE 1% MPF 30 ML VIAL ONE (13:30)
[2017-11-27] MEDS ORDERED: ONDANSETRON HCL 40 MG/20 ML VIAL ONE (13:30)
[2017-11-27] MEDS ORDERED: GLYCOPYRROLATE 0.2 MG/ML SYR ONE (13:30)
[2017-11-27] MEDS ORDERED: PROPOFOL 200 MG/20 ML VIAL IV ONE (13:30)
--- NOTE | 2017-11-27 14:45 | ENDO RPT ---
[address], [address] ERCP PROCEDURE REPORT EXAM DATE: 11/27/2017 PATIENT NAME: Ely Coley MR #: [id number] BIRTHDATE: 1945 ATTENDING: Jean Carlos Mena Dr STATUS: inpatient - 7 RECREATION THERAPY AIDE: Yunior Leyva and Lydia Alegre RN INDICATIONS: The patient is a 72 yr old Male here for an ERCP due to abnormal imaging - MRCP with possible distal CBD stone, abnormal Liver Function Tests, jaundice, and suspected stone PROCEDURE PERFORMED: ERCP with sphincterotomy, ERCP with balloon passage, and ERCP with stent placement MEDICATIONS: Per Anesthesia. CONSENT: The patient understands the risks and benefits of the procedure and understands that these risks include, but are not limited to: sedation, allergic reaction, infection, perforation and/or bleeding. Alternative means of evaluation and treatment include, among others: physical exam, x-rays, and/or surgical intervention. The patient elects to proceed with this endoscopic procedure. DESCRIPTION OF PROCEDURE: During intra-op preparation period all mechanical medical equipment was checked for proper function. Hand hygiene and appropriate measures for infection prevention was taken. Procedure, possible complications, and alternatives including but not limited to the possibility of bleeding, perforation, tear, infection, sepsis, need for surgery, need for blood transfusion, and anesthesia related complications were explained to the patient. In addition, 5-30% incidence of acute pancreatitis as a result of ERCP were explained. After the risks, benefits and alternatives of the procedure were thoroughly explained, Informed was verified, confirmed and timeout was successfully executed by the treatment team. With the patient in left semi-prone position, medications were administered intravenously.The [id number] ([id number]) was passed from the mouth into the esophagus and further advanced from the esophagus into the stomach. From stomach scope was directed to the second portion of the duodenum. Major papilla was aligned with the duodenoscope. The scope position was confirmed fluoroscopically. Rest of the findings/therapeutics are given below. The scope was then completely withdrawn from the patient and the procedure completed. The pulse, BP, and O2 saturation were monitored and documented by the physician and the nursing staff throughout the entire procedure. The patient was cared for as planned according to standard protocol. The patient was then discharged to recovery in stable condition and with appropriate post procedure care. Filling defect was noted in the common bile duct. A stricture was found in the common bile duct. ADVERSE EVENT: None IMPRESSIONS: 1. Filling defect in the distal common bile duct 2. Possible mild stricture / ledge in the distal common bile duct, s/p sphincterotomy, 9 mm balloon passage, 7-5 plastic biliary stent placed RECOMMENDATIONS: 1. antibiotics 2. cholecystectomy as per surgery REPEAT EXAM: Return in 2 week(s) for ERCP. Jean Carlos Mena Dr eSigned: Jean Carlos Mena Dr 11/27/2017 2:36 PM cc: CPT CODES: ICD9 CODES: PATIENT NAME: Ely Coleyn MR#: [id number]
--- NOTE | 2017-11-27 14:53 | RAD REPORT ---
EXAM DESCRIPTION: RAD - Fluoroscopy ERCP - 11/27/2017 2:41 pm CLINICAL HISTORY: Abdominal pain FINDINGS: Common bile duct was cannulated and contrast administered. Four fluoroscopic spot images o btained. Fluoroscopy time 2.36 minutes Exam was performed by Dr. Mena. The distal common bile duct is not opacified. Filling defect within the remainder the biliary tree is not seen. Please refer to Dr. Mena's report for additional finding
[2017-11-27] MEDS ORDERED: ENOXAPARIN 100 MG/ML SYR SQ SCH (17:00)
--- NOTE | 2017-11-27 18:43 | PN ---
Date of Progress Note: 11/27/2017 History: The patient is seen and examined. Chart reviewed and case discussed with Dr. Mayer. The patient had ERCP done today. Otherwise doing well. Review of Systems: Negative except as above. Medications: List reviewed. Physical Examination: Vital Signs: Temperature 97, heart rate 68, blood pressure 133/62, respirations 18, O2 100% on room air. General: Awake, alert, oriented x3, not in acute distress. Elderly male, obese , jaundiced CV: S1, S2. No murmurs. Peripheral pulses present bilaterally. Respiratory: Clear to auscultation bilaterally. No wheezing. Gastrointestinal: Abdomen is soft. Mild tenderness to palpation. No guarding or rigidity. Bowel sounds positive. Extremities: No clubbing, cyanosis or edema. Neurologic: Nonfocal. Laboratory Data: Sodium 140, potassium 4, chloride 107, CO2 26, BUN 25, creatinine 1.4, glucose 126, calcium 8.4. WBC 7.2, H and H 12 and 34.6, platelets 161, neutrophils 58%. Assessment And Plan: A 72-year-old male with: 1. Acute cholecystitis with cholelithiasis, choledocholithiasis with obstruction. We will continue IV antibiotics. GI and Surgery on board. 2. Choledocholithiasis. Dr. Mena performed ERCP today, which showed common bile duct at the stricture status post sphincterotomy, balloon passage and biliary stent placement. The patient will need cholecystectomy. 3. Atrial fibrillation, chronic on apixaban, which has been held due to procedures. We will switch to Lovenox. We will give a dose tonight. The patient is not scheduled for surgery until Wednesday. 4. Diabetes mellitus type 2 with long-term use of insulin with hyperglycemia. Continue sliding scale insulin. 5. Obesity, BMI 30.9. 6. Acute on chronic kidney injury stage 3. Creatinine is improving down to 1.4, which is around his baseline. 7. 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 8. Status post pacemaker. Plan anticipate cholecystectomy on Wednesday. /AZEB Voice ID: [id number] Report ID: [id number] [facility] HEALTH SYSTEMLyudmila
[2017-11-27] MEDS: ENOXAPARIN 100 MG/ML SYR SQ SCH (20:36)
[2017-11-27] MEDS: TRAZODONE 50 MG TABLET PO PRN (20:36)
[2017-11-28] MEDS: CIPROFLOXACIN 400mg IV 400 MG/200 ML BAG IV SCH ×2 (01:13→13:12)
[2017-11-28] MEDS: NA CHLORIDE 0.9% 1,000 ML IV SCH ×3 (01:13→13:15)
[2017-11-28] MEDS: METRONIDAZOLE 500mg IVPB 500 MG/100 ML BAG IV SCH ×3 (05:08→21:51)
[2017-11-28 06:30] LABS: Absolute Lymphocytes (CBC) 1.2 K/uL (0.7-4.9); Absolute Monocytes 1.2 K/uL (0.1-1.3); Absolute Neutrophil 3.2 K/uL (1.8-8.0); Basophils % 0.6 % (0-1.3); Eosinophils % 3.2 % (0-4.4); Hematocrit 32.8 % (39.6-49.0); Lymphocytes % 20.9 % (15.3-44.8); MCH 32.9 pg (27.0-35.0); MCV 95.8 fL (80-100); MPV 8.1 fL (7.6-11.3); Monocytes % 20.8 % (3.3-12.3); RBC Red Blood Cell Count 3.42 M/uL (4.33-5.43)
[2017-11-28 06:40] LABS: Albumin 2.5 g/dL (3.4-5.0); Bilirubin Direct 2.1 mg/dL (0-0.2); Bilirubin Total 2.6 mg/dL (0.2-1.0); Magnesium 1.8 mg/dL (1.8-2.4); Phosphorus 2.3 mg/dL (2.5-4.9); Potassium 3.9 mmol/L (3.5-5.1); Protein, Total 6.4 g/dL (6.4-8.2)
[2017-11-28 07:56] LABS: Blood Morphology Comment NOT SEEN (NOT SEEN); Platelet Estimate ADEQ
[2017-11-28] MEDS ORDERED: MAGNESIUM SULFATE 1 gm IVPB 1 GM/100 ML BAG IV ONE (09:00)
[2017-11-28] MEDS ORDERED: POTASSIUM 25 MEQ EFFERV TAB PO ONE (09:00)
[2017-11-28] MEDS: ENOXAPARIN 100 MG/ML SYR SQ SCH (09:40)
--- NOTE | 2017-11-28 11:25 | P.PN ---
Subjective Date of Service: 11/28/17 Chief Complaint: Cholelithiasis/cholecystitis, jaundice, elevated liver chemistries,abn MRCP Subjective: Improving (Feels good today after ERCP yesterday. Less jaundice today. Sitting up in bed with family at bedside. No complaints.) Review of Systems 10-point ROS is otherwise unremarkable General: Malaise (improved) Physical Examination - Vital Signs Temperature: 97.6 F Blood Pressure: 123/61 Pulse: 60 Respirations: 16 Pulse Ox (%): 98 - Physical Exam General: Alert, In no apparent distress, Oriented x3, Cooperative HEENT: Atraumatic, Normocephalic, PERRLA, EOMI, Scleral icterus (Improved) Neck: Supple Respiratory: Normal air movement Cardiovascular: Normal pulses Gastrointestinal: Soft and benign, No tenderness, No rebound, No guarding Neurological: Normal speech, Normal strength at 5/5 x4 extr Assessment And Plan - Current Problems (Diagnosis) (1) Cholecystitis Current Visit: Yes Status: Acute Comment: s/p ERCP with biliary stent placement. Filling defect at distal CBD noted. Sphincterotomy performed with balloon passage, no stone seen exiting ampulla but filling defect gone. Possibly due to stone passage though not seen or mild distal CBD stricture resolved with ERS and balloon passage / dilatation. (2) Cholelithiasis Current Visit: Yes Status: Acute Qualifiers: Cholelithiasis location: gallbladder Cholecystitis presence: with cholecystitis Cholecystitis acuity: acute Biliary obstruction: without biliary obstruction Qualified Code(s): K80.00 - Calculus of gallbladder with acute cholecystitis without obstruction (3) Acute on chronic diastolic CHF (congestive heart failure) Current Visit: No Status: Acute (4) Atrial fibrillation with rapid ventricular response Onset Date: 10/19/17 Current Visit: No Status: Acute (5) Bradycardia Onset Date: 07/30/16 Current Visit: No Status: Acute (6) Chest pain Onset Date: 05/07/15 Current Visit: No Status: Acute (7) Dyspnea Onset Date: 07/30/16 Current Visit: No Status: Acute (8) History of CVA (cerebrovascular accident) Current Visit: No Status: Acute (9) Diabetes mellitus Onset Date: 08/28/15 Current Visit: No Status: Chronic Qualifiers: Diabetes mellitus type: type 2 Diabetes mellitus continuous churn buttermaker insulin use: without continuous churn buttermaker use Diabetes mellitus complication status: with neurologic complications (10) Hypertension Onset Date: 08/28/15 Current Visit: No Status: Chronic Qualifiers: Hypertension type: essential hypertension Qualified Code(s): I10 - Essential (primary) hypertension (11) Obesity (BMI 30-39.9) Current Visit: No Status: Chronic - Plan REC: 1) lap gin as per surgery 2) restart Lasix and Aldactone (held yesterday after ERCP)
[2017-11-28] MEDS: AMIODARONE HCL 200 MG TAB PO SCH ×2 (13:12→21:51)
--- NOTE | 2017-11-28 14:51 | PN ---
Date of Progress Note: 11/28/2017 Subjective: The patient is awake, alert, no complaint. The patient underwent an ERCP yesterday and had a stent placed. He was noted to have narrowing of the distal common bile duct. No stones were s een. He may have passed it. His LFTs are improving. Objective: Vital Signs: Stable. He is afebrile. Abdomen: Benign. Assessment: Chronic cholecystitis, cholelithiasis, choledocholithiasis, status post endoscopic retro grade cholangiopancreatography. Plan: We will proceed with laparoscopic cholecystectomy, possible open tomorrow. The patient and choco myers understand the risks, benefits, and alternatives, and agree to the procedure. I will discuss with Dr. Boudreaux regarding anticoagulation as the patient is currently on 100 mg of Lovenox b.i.d., radha t will need to be tapered for the procedure. He can be anticoagulated after the procedure. AMBER/AZEB Voice ID: [id number] Report ID: [id number]
--- NOTE | 2017-11-28 16:15 | PN ---
Date of Progress Note: 11/28/2017 Subjective: The patient seen and examined. Chart reviewed and case discussed with RN and Dr. Mayer. The patient had ERCP done yesterday with biliary stent placement and was found to have stricture. The patient otherwise doing well. Denies any pain. Going for cholecystectomy in the a.m. Review of Systems: Negative except as above. Medications: List reviewed. Physical Examination: Vital Signs: Temperature 97.2, heart rate 60, blood pressure 149/67, respirations 18, O2 sat 98% on room air. General: Awake, alert, oriented x3 without any acute distress. Elderly male, obese. CV: S1, S2. No murmurs. Peripheral pulses present. Respiratory: Moving air well bilaterally. No wheezing or stridor. Gastrointestinal: Abdomen is soft. Mild tenderness to palpation. No guarding or rigidity. Bowel s ounds positive. Extremities: No clubbing, cyanosis, edema. Neurologic: Nonfocal. Laboratory Data: Sodium 143, potassium 3.9, chloride 110, CO2 of 23, BUN 19, creatinine 1.2, glucose 122, calcium 8.4, phosphorus 2.3, total bilirubin 2.6, direct bilirubin 2.1, AST 22, ALT 65, alkalin e phosphatase 216, albumin 2.5, amylase 13, lipase 56. WBC 5.8, H and H of 11.2 and 32.8, platelets 138. Assessment And Plan: A 72-year-old male with: 1.Acute cholecystitis with cholelithiasis and obstruction secondary to stricture found on ERCP, stat us post sphincterotomy, balloon angioplasty, and stent placement. The patient is less jaundiced toda y, feeling better. We will continue IV antibiotics. 2.Choledocholithiasis. The patient probably had recent stone passage. Total bilirubin is trending down. Balloon passage in-stent placement done by Dr. Mena. 3.Atrial fibrillation. Chronic on apixaban, held due to procedure. Currently on Lovenox, we will h old, last dosed today, in anticipation of surgery in a.m. 4.Diabetes mellitus type 2 with long-term use of insulin with hyperglycemia. We will continue slidi ng scale insulin and Accu-Cheks. 5.Obesity, BMI 30.9. 6.Yaplt-yq-wzijvxk kidney injury, stage 3. Creatinine normalized. We will avoid nephrotoxins. 7.Elevated liver enzymes secondary to cholecystitis and biliary stricture, improved. Continue to mo nitor. 8.Status post pacemaker. 9.Gastrointestinal and deep venous thrombosis prophylaxis with proton-pump inhibitor and Lovenox. PLAN: Anticipate surgery in [place] KING/AZEB Voice ID: [id number] Report ID: [id number]
[2017-11-28] MEDS ORDERED: METOPROLOL TARTRATE 5 MG/5 ML INJ IV PRN (16:16)
[2017-11-29] MEDS: CIPROFLOXACIN 400mg IV 400 MG/200 ML BAG IV SCH ×2 (02:35→14:41)
[2017-11-29] MEDS: NA CHLORIDE 0.9% 1,000 ML IV SCH ×2 (03:37→18:12)
[2017-11-29 04:22] LABS: Absolute Lymphocytes (CBC) 1.5 K/uL (0.7-4.9); Absolute Monocytes 1.4 K/uL (0.1-1.3); Absolute Neutrophil 4.4 K/uL (1.8-8.0); Basophils % 0.6 % (0-1.3); Eosinophils % 2.8 % (0-4.4); Hematocrit 35.6 % (39.6-49.0); Lymphocytes % 19.6 % (15.3-44.8); MCH 32.3 pg (27.0-35.0); MCV 94.6 fL (80-100); MPV 8.5 fL (7.6-11.3); Monocytes % 18.9 % (3.3-12.3); RBC Red Blood Cell Count 3.77 M/uL (4.33-5.43)
[2017-11-29 04:34] LABS: Magnesium 1.9 mg/dL (1.8-2.4); Potassium 3.9 mmol/L (3.5-5.1)
[2017-11-29] MEDS: METRONIDAZOLE 500mg IVPB 500 MG/100 ML BAG IV SCH ×3 (05:45→21:29)
[2017-11-29] MEDS ORDERED: POTASSIUM 25 MEQ EFFERV TAB PO ONE ×2 (09:00→12:52)
[2017-11-29] MEDS ORDERED: KCL 20 MEQ/100 mL IVPB 20 MEQ/100 ML BAG IV SCH (09:00)
[2017-11-29] MEDS ORDERED: PROPOFOL 200 MG/20 ML VIAL IV ONE (09:43)
[2017-11-29] MEDS ORDERED: FENTANYL CITR 100 MCG/2 ML ONE (09:43)
[2017-11-29] MEDS ORDERED: LIDOCAINE 1% MPF 5 ML VIAL ONE (09:43)
[2017-11-29] MEDS ORDERED: ROCURONIUM 50 MG/5 ML VIAL IV ONE (09:44)
[2017-11-29] MEDS ORDERED: Phenylephrine HCl 10 MG/ML 1 ML VIAL ONE (10:52)
[2017-11-29] MEDS ORDERED: NS 0.9% VIAL 10 ML ONE (10:53)
[2017-11-29] MEDS ORDERED: GLYCOPYRROLATE 0.2 MG/ML SYR ONE (11:04)
[2017-11-29] MEDS ORDERED: KETOROLAC 30 MG/ML INJ ONE (11:04)
--- NOTE | 2017-11-29 11:12 | P.OP ---
Supervisor Cleaning And Annealing: Bekah HOGAN Preoperative diagnosis: Chronic Cholecystitis and Cholelithiasis and Choledocholithiasis Postoperative diagnosis: same S/P ERCP Primary procedure: Lap Janessa Anesthesia: gen Estimated blood loss: min Specimen: gb Findings: as above Complications: None Transferred to: Recovery Room Condition: Good
[2017-11-29] MEDS ORDERED: ONDANSETRON HCL 40 MG/20 ML VIAL ONE (11:13)
[2017-11-29] MEDS ORDERED: NEOSTIGMINE 1 MG/ML -5 ML SYRINGE ONE (11:13)
[2017-11-29] MEDS ORDERED: ONDANSETRON 4 MG/2 ML VIAL IV PRN (11:29)
[2017-11-29] MEDS ORDERED: HYDROCODONE/APAP 7.5/325 MG TAB PO PRN (11:29)
[2017-11-29] MEDS ORDERED: HYDROMORPHONE HCL 1 MG/ML INJ IV PRN (11:29)
[2017-11-29] MEDS: NA CHLORIDE 0.9% 1,000 ML ONE ×2 (11:43→12:09)
[2017-11-29] MEDS: AMIODARONE HCL 200 MG TAB PO SCH ×2 (12:59→21:29)
--- NOTE | 2017-11-29 16:24 | EKG ---
Test Date: 2017-11-28 Test Time: 16:01:29 Belt Loop Machine Operator: BETH MEASUREMENT RESULTS: Intervals: Rate: 100 HI: QRSD: 116 QT: 392 QTc: 505 [place]: P: HI: QRS: -13 T: -26 INTERPRETIVE STATEMENTS: Rhythm consistent with VVI pacing Atrial fibrillation with intermittent ventricular pacing Nonspecific ST and T wave abnormality Prolonged QT Abnormal ECG Compared to ECG 11/25/2017 17:25:47 previous ECG had atrial paced rhythm Atrial fibrillation is now present Electronically Signed On 11-29-17 16:23:35 CDT by Dominic Espino
--- NOTE | 2017-11-29 18:35 | P.PN ---
Subjective Date of Service: 11/29/17 Chief Complaint: Cholelithiasis/cholecystitis, jaundice, elevated liver chemistries,abn MRCP Subjective: Improving (s/p lap gin today and feeling well.) Review of Systems Unremarkable Physical Examination - Vital Signs Temperature: 98.3 F Blood Pressure: 129/85 Pulse: 77 Respirations: 18 Pulse Ox (%): 97 - Physical Exam General: Alert, In no apparent distress, Oriented x3, Cooperative HEENT: Atraumatic, Normocephalic, PERRLA, EOMI Neck: Supple Respiratory: Normal air movement Cardiovascular: Normal pulses Gastrointestinal: No rebound, No guarding, Tenderness (post-op) Neurological: Normal speech, Normal strength at 5/5 x4 extr Assessment And Plan - Current Problems (Diagnosis) (1) Cholecystitis Onset Date: 11/29/17 Current Visit: Yes Status: Acute Comment: s/p ERCP with biliary stent placement. Filling defect at distal CBD noted. Sphincterotomy performed with balloon passage, no stone seen exiting ampulla but filling defect gone. Possibly due to stone passage though not seen or mild distal CBD stricture resolved with ERS and balloon passage / dilatation. S/p lap gin 11-29-17. (2) Cholelithiasis Onset Date: 11/29/17 Current Visit: Yes Status: Acute Qualifiers: Cholelithiasis location: gallbladder Cholecystitis presence: with cholecystitis Cholecystitis acuity: acute Biliary obstruction: without biliary obstruction Qualified Code(s): K80.00 - Calculus of gallbladder with acute cholecystitis without obstruction (3) Acute on chronic diastolic CHF (congestive heart failure) Current Visit: No Status: Acute (4) Atrial fibrillation with rapid ventricular response Onset Date: 11/29/17 Current Visit: Yes Status: Acute (5) Bradycardia Onset Date: 07/30/16 Current Visit: No Status: Acute (6) Chest pain Onset Date: 05/07/15 Current Visit: No Status: Acute (7) Dyspnea Onset Date: 07/30/16 Current Visit: No Status: Acute (8) History of CVA (cerebrovascular accident) Current Visit: No Status: Acute (9) Diabetes mellitus Onset Date: 11/29/17 Current Visit: Yes Status: Chronic Qualifiers: Diabetes mellitus type: type 2 Diabetes mellitus mill machinist insulin use: without mill machinist use Diabetes mellitus complication status: with neurologic complications (10) Hypertension Onset Date: 08/28/15 Current Visit: No Status: Chronic Qualifiers: Hypertension type: essential hypertension Qualified Code(s): I10 - Essential (primary) hypertension (11) Obesity (BMI 30-39.9) Current Visit: No Status: Chronic - Plan REC: 1) diet as per surgery 2) continue Lasix and Aldactone (held one day for ERCP)
--- NOTE | 2017-11-29 19:40 | PN ---
Date of Progress Note: 11/29/2017 Subjective: The patient is seen and examined, chart reviewed, and case discussed with RN. The patie nt went for a laparoscopic cholecystectomy today with Dr. Mayer. Case discussed with Dr. Mayer. He recommends observing the patient overnight. He is okay with restarting the Eliquis tomorrow. We elen l keep on Lovenox for now. The patient states his pain has improved, still little bit groggy from a surgery. Review of Systems: Negative, except as above. Medications: List reviewed. Physical Examination: Vital Signs: Temperature 97, heart rate 104, blood pressure 105/59, respirations 18, and O2 of 95% o n room air. General: Awake, alert, oriented x3, in some mild distress, elderly male, obese. CV: S1 and S2, irregularly irregular. Peripheral pulses present. Respiratory: Moving air well bilaterally. No wheezing. Gastrointestinal: Abdomen is soft, nondistended. Mild tenderness to palpation around the incision s ite. Bowel sounds positive. Extremities: No clubbing, cyanosis, or edema. Neurologic: Nonfocal. Laboratory Data: Sodium 139, potassium 3.9, chloride 108, CO2 of 23, BUN 12, creatinine 1, glucose 1 83, calcium 8.1, and magnesium 1.9. Amylase 15, lipase 72. WBC 7.5, H and H of 12.2 and 35.6, plate lets 189. Assessment And Plan: A 72-year-old male with, 1.Acute cholecystitis with cholelithiasis and obstruction secondary to stricture, status post entero abby, balloon passage and stent placement, improving. Continue IV antibiotics. 2.Recent choledocholithiasis. Total bilirubin is trending down. Stent has been placed by Dr. Maria M todd, status post endoscopic retrograde cholangiopancreatography. 3.Status post cholecystectomy, laparoscopic. The patient counseled regarding dietary restrictions a nd fat-soluble vitamin supplementation. 4.Atrial fibrillation, chronic. Continue Lovenox. We will restart Eliquis in a.m. We will continu e rate control, the patient is on amiodarone. 5.Diabetes mellitus type 2 with long-term use of insulin with hyperglycemia. We will continue slidi ng scale insulin and Accu-Cheks. 6.Obesity, BMI 30.9. 7.Yncsa-dd-tvncawt kidney injury, stage 3. Creatinine is normal. We will avoid NSAIDs and nephroto xins. Continue to monitor. 8.Elevated liver enzymes and total bilirubin secondary to cholecystitis and biliary stricture, resol ving. 9.Status post pacemaker. 10.Gastrointestinal and deep venous thrombosis prophylaxis with PPI and Lovenox. 11.Hypotension. We will start on IV fluids. PLAN: Resume diet. We will discharge in the 24 hours once cleared by Surgery and GI. SA/MODL Voice ID: [id number] Report ID: [id number]
[2017-11-29] MEDS: ENOXAPARIN 100 MG/ML SYR SQ SCH (21:29)
[2017-11-29] MEDS: TRAZODONE 50 MG TABLET PO PRN (21:29)
--- NOTE | 2017-11-29 23:34 | OP ---
Date of Procedure: 11/29/2017 Surgeon: Jimenez Mayer MD [employer] Professor: SAMIRA Moreno Preoperative Diagnoses: Chronic cholecystitis, choledocholithiasis, status post endoscopic retrograd e cholangiopancreatography. Postoperative Diagnoses: Chronic cholecystitis, choledocholithiasis, status post endoscopic retrogra de cholangiopancreatography. Procedure: Laparoscopic cholecystectomy. Estimated Blood Loss: Minimal. Specimen: Gallbladder finding as above. Anesthesia: General. Complications: None. Disposition: The patient tolerated procedure, stable condition, taken to recovery in good general co ndition. Operative Note: The patient was brought to the OR and placed in supine position. Tourniquet begun. The patient was prepped and draped in usual sterile fashion. Marcaine 0.5% was infiltrated locally. A 15-blade was used to make a 1 cm supraumbilical midline incision. Subcutaneous tissue divided. Fascia was identified and divided. A #1 Vicryl stay suture placed. Peritoneal cavity was entered wi th blunt dissection. A 12-mm trocar was placed into the peritoneal cavity under direct vision. Pneu moperitoneum was established. Then, three 5 mm trocars placed, 1 in the epigastrium just to the righ t of midline, 2 in the right subcostal region. Laparoscopy revealed chronic inflammation in the gall bladder with some adhesions near the infundibulum. Fundus retracted superiorly. Infundibulum was id entified and retracted inferolaterally. Adhesions taken down with sharp and blunt dissection. Cysti c duct, cystic artery clearly identified with blunt dissection. Clips placed. Both structures were divided. Cautery was used to remove the gallbladder from the liver bed. Bleeding on the liver bed w as controlled with cautery. Gallbladder retrieved through the umbilicus via an EndoCatch bag. Right upper quadrant was irrigated. Effluent was clear. No evidence of bleeding or bile leakage apprecia vy. Subsequently, all trocars were removed under direct vision. Stay sutures were tied to each oth er across the fascial defect. Subcutaneous wounds were irrigated. Bleeding controlled with cautery. A 3-0 chromic was used to approximate the subcutaneous tissue and close skin. Sterile dressing was applied. The patient was awakened and taken to recovery in good general condition. /MODL Voice ID: [id number] Report ID: [id number]
[2017-11-30] MEDS: CIPROFLOXACIN 400mg IV 400 MG/200 ML BAG IV SCH ×2 (02:08→14:00)
[2017-11-30 04:22] LABS: Absolute Lymphocytes (CBC) 1.3 K/uL (0.7-4.9); Absolute Monocytes 2.1 K/uL (0.1-1.3); Absolute Neutrophil 5.8 K/uL (1.8-8.0); Basophils % 0.4 % (0-1.3); Eosinophils % 1.3 % (0-4.4); Hematocrit 35.2 % (39.6-49.0); Lymphocytes % 14.2 % (15.3-44.8); MCV 96.9 fL (80-100); MPV 7.7 fL (7.6-11.3); RBC Red Blood Cell Count 3.63 M/uL (4.33-5.43)
[2017-11-30 04:24] LABS: Monocytes % 22.2 % (3.3-12.3)
[2017-11-30 04:34] LABS: Magnesium 1.8 mg/dL (1.8-2.4)
[2017-11-30] MEDS ORDERED: MAGNESIUM SULFATE 1 gm IVPB 1 GM/100 ML BAG IV ONE (04:36)
[2017-11-30] MEDS: METRONIDAZOLE 500mg IVPB 500 MG/100 ML BAG IV SCH ×2 (05:25→14:00)
[2017-11-30] MEDS: NA CHLORIDE 0.9% 1,000 ML IV SCH (05:25)
[2017-11-30] MEDS ORDERED: APIXABAN 2.5 MG TABLET PO SCH (09:00)
[2017-11-30 09:12] VITALS: O2SAT 98
[2017-11-30] MEDS: AMIODARONE HCL 200 MG TAB PO SCH (09:25)
[2017-11-30 13:12] VITALS: BP 108/66; TEMP 97
--- NOTE | 2017-11-30 15:17 | PN ---
Date of Progress Note: 11/30/2017 Subjective: The patient is awake, alert, tolerating diet, ambulating. Pain controlled with p.o. yesenia n medication and afebrile. Objective: Vital signs: Stable, afebrile. Abdomen: Benign. Assessment: Status post laparoscopic cholecystectomy. Recommendations: The patient is cleared from surgical standpoint for discharge. Follow up in my off ice in 1 week. Discharge instructions given. /MODL Voice ID: [id number] Report ID: [id number]
--- NOTE | 2017-11-30 17:24 | P.DS ---
Admission Date: 11/25/17 Discharge Date: 11/30/17 Disposition: ROUTINE DISCHARGE Discharge Condition: GOOD Reason for Admission: Cholelithiasis/cholecystitis, jaundice, elevated liver chemistries,abn MRCP Consultations: , Gen Surg Dr. Mena, GI Procedures: ERCP, 11/27/2017 Lap choly, 11/29/2017 Brief History of Present Illness: Mr Coley is a 72-year-old male with history of atrial fibrillation anticoagulation with apixaban, hypertension, diabetes mellitus types 2, who came to the ER complaining of dizziness and lightheadedness. His symptoms started today. He also was complaining of right upper quadrant pain associated with nausea. He denied any fever or chills. He has never had these kind of symptoms in the past. EMS from the patient hypotensive 88/55 Lab work remarkable for normal WBC count, abnormal liver function test with elevated bilirubin, transaminase and alk-phos. His renal function is also abnormal, creatinine is 2.0. CT abdomen and pelvis showed cholelithiasis. Subsequent abdominal ultrasound remarkable for cholelithiasis with possible cholecystitis. Hospital Course: - acute cholecystitis with cholelithiasis: He was given IV fluids, empiric antibiotic treatment, pain control and GI and general surgery were consulted. Patient underwent ERCP. Tolerated procedure well. The patient then underwent a lap choly. Post lap choly, patient was started on clear liquids and advanced to 2 full liquid/soft as tolerated. At the time of discharge, patient tolerating a soft diet well without any abdominal pain, nausea or vomiting. He is to follow up with general surgery in 1 week. - chronic atrial fibrillation, remained stable throughout hospitalization. Italic was was restarted after procedure and rate controlled with amiodarone ( patient's home medication) - Assessment And Plan: A 72-year-old male with, 1. Acute cholecystitis with cholelithiasis and obstruction secondary to stricture, status post enterotomy, balloon passage and stent placement, improving. Continue IV antibiotics. 2. Recent choledocholithiasis. Total bilirubin is trending down. Stent has been placed by Dr. Mena, status post endoscopic retrograde cholangiopancreatography. 3. Status post cholecystectomy, laparoscopic. The patient counseled regarding dietary restrictions and fat-soluble vitamin supplementation. 4. Atrial fibrillation, chronic. Continue Lovenox. We will restart Eliquis in a.m. We will continue rate control, the patient is on amiodarone. 5. Diabetes mellitus type 2 with long-term use of insulin with hyperglycemia. We will continue sliding scale insulin and Accu-Cheks. 6. Obesity, BMI 30.9. 7. Slkqg-cp-jvozyuo kidney injury, stage 3. Creatinine is normal. We will avoid NSAIDs and nephrotoxins. Continue to monitor. 8. Elevated liver enzymes and total bilirubin secondary to cholecystitis and biliary stricture, resolving. 9. Status post pacemaker. 10. Gastrointestinal and deep venous thrombosis prophylaxis with PPI and Lovenox. 11. Hypotension. We will start on IV fluids. PLAN: Resume diet. We will discharge in the 24 hours once cleared by Surgery Vital Signs/Physical Exam: Temp Pulse Resp BP Pulse Ox 97 F 104 H 18 108/66 95 11/30/17 12:00 11/30/17 12:00 11/30/17 12:00 11/30/17 12:00 11/30/17 12:00 Laboratory Data at Discharge: WBC 9.4 K/uL (4.3-10.9) D 11/30/17 04:00 Hgb 12.0 g/dL (13.6-17.9) L 11/30/17 04:00 Hct 35.2 % (39.6-49.0) L 11/30/17 04:00 Plt Count 167 K/uL (152-406) 11/30/17 04:00 PT 16.3 SECONDS (9.5-12.5) H 11/27/17 05:06 INR 1.38 11/27/17 05:06 APTT 34.6 SECONDS (24.3-36.9) 11/27/17 05:06 Sodium 139 mmol/L (136-145) 11/29/17 04:01 Potassium 3.9 mmol/L (3.5-5.1) 11/29/17 04:01 BUN 12 mg/dL (7-18) 11/29/17 04:01 Creatinine 1.00 mg/dL (0.55-1.3) 11/29/17 04:01 Glucose 183 mg/dL (74-106) H 11/29/17 04:01 Phosphorus 2.0 mg/dL (2.5-4.9) L 11/30/17 04:00 Magnesium 1.8 mg/dL (1.8-2.4) 11/30/17 04:00 Total Bilirubin 2.6 mg/dL (0.2-1.0) H 11/28/17 05:39 AST 22 U/L (15-37) 11/28/17 05:39 ALT 65 U/L (12-78) 11/28/17 05:39 Alkaline Phosphatase 216 U/L (45-117) H 11/28/17 05:39 Amylase 15 U/L (25-115) L 11/29/17 04:01 Lipase 72 U/L (73-393) L 11/29/17 04:01 Home Medications: Amiodarone HCl [Cordarone*] 200 mg PO Q12H 10/19/17 Apixaban [Eliquis *] 2.5 mg PO BID 10/19/17 Spironolactone [Aldactone*] 25 mg PO BID 10/19/17 glipiZIDE [Glipizide] 5 mg PO DAILY 10/19/17 Insulin Glargine Human [Lantus*] 10 units SQ DAILY WITH BREAKFAST #1 vial Furosemide [Lasix*] 20 mg PO BID 11/26/17 Patient Discharge Instructions: may shower in am. keep steristrips on at all times Diet: AHA Activity: No lifting more than 10 lbs Followup: Luisa Conner DO, DO [ACTIVE - CAN ADMIT] - (call to schedule appointment) Jimenez Mayer MD [ACTIVE - CAN ADMIT] - 1 Week (call to schedule appointment)
== END 2017-11-30 16:16 | disposition home or self-care (01) | DRG 417 ==
LOC: ER 17:05 → ERHOLD 22:34 → 4TH 23:20
PROVIDERS: ADMIT Internal Medicine; ATTEND Family Medicine
PROC: 0F798DZ Dilation of Common Bile Duct with Intraluminal Device, Via Natural or Artificial Opening Endoscopic (ICD-10-PCS; principal; 2017-11-27 08:00)
PROC: 0FT44ZZ Resection of Gallbladder, Percutaneous Endoscopic Approach (ICD-10-PCS; 2017-11-29)
DX: K80.63 Calculus of gallbladder and bile duct with acute cholecystitis with obstruction (principal); I50.33 Acute on chronic diastolic (congestive) heart failure; I13.0 Hypertensive heart and chronic kidney disease with heart failure and stage 1 through stage 4 chronic kidney disease, or unspecified chronic kidney disease; N17.9 Acute kidney failure, unspecified; R17 Unspecified jaundice; I48.2 Chronic atrial fibrillation; Z79.01 Long term (current) use of anticoagulants; E11.65 Type 2 diabetes mellitus with hyperglycemia; Z79.4 Long term (current) use of insulin; I95.9 Hypotension, unspecified; Z86.73 Personal history of transient ischemic attack (TIA), and cerebral infarction without residual deficits; K21.9 Gastro-esophageal reflux disease without esophagitis; Z96.651 Presence of right artificial knee joint; Z87.891 Personal history of nicotine dependence; E66.9 Obesity, unspecified; Z68.30 Body mass index [BMI] 30.0-30.9, adult; Z95.0 Presence of cardiac pacemaker; N18.3 Chronic kidney disease, stage 3 (moderate); E11.22 Type 2 diabetes mellitus with diabetic chronic kidney disease; R94.5 Abnormal results of liver function studies
CPT/HCPCS: 36415; 71045; 74176; 74181; 76705; 80048; 80053; 80076; 81003; 82150; 82248; 82962; 83690; 83735; 83880; 84100; 84484; 85025; 85610; 85730; 88304; 93005; 96361; 96365; 99285; C2625; J0744; J1580; J1610; J1650; J2370; J2405; J2710; J3010; J3475; J7030

== ENCOUNTER 2017-12-21 09:06 | Day surgery (SDC) | payer OTHER ==
--- OUTSIDE RECORDS SUMMARY | 2017-12-21 09:44 | XMS REPORT | Continuity of Care Document ---
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 09/15/2016 [facility] fibrillation [facility] Chest pain Resolved Problem 09/15/2016 [facility] CHF (<span Resolved Problem 09/15/2016 [facility] ID="[id number] [facility] 9">Confirmed</s Center nieto>) CVA (<span Resolved Problem 09/15/2016 [facility] ID="[id number] [facility] 9">Confirmed</s Center nieto>) Dizziness Resolved Problem 09/15/2016 [facility] DM - Diabetes Active Problem 09/15/2016 [facility] mellitus [facility] Edema Resolved Problem 09/15/2016 [facility] Syncope Resolved Problem 09/15/2016 [facility] Bradycardia Resolved Problem 09/15/2016 [facility] Hypertension Active Problem 09/15/2016 [facility] Medications Medication Details Route Status Patient Ordering Order Source Instructions Provider Date Diltiazem 60 mg, No Longer [facility] Route: PO, Active 2017 Medical Drug form: Center TAB, Daily, Dosing Weight 116.364, kg, Start date: 09/13/16 9:00:00 CDT, Duration: 30 day, Stop date: 10/12/16 9:00:00 CDT metoprolol tartrate 50 mg, 1 Inactive [facility] tab, Route: 2017 Medical PO, Drug Center form: TAB, Q12H, Dosing Weight 116.364, kg, Start date: 09/12/16 21:00:00 CDT, Duration: 30 day, Stop date: 10/12/16 9:00:00 CDTNotes: (Same as: Lopressor) Insulin regular 4 unit, 0.04 Inactive [facility] mL, Route: 2016 Medical SUB-Q, Drug [...] Acetaminophen 300 MG 1 tab, PO, Active [facility] / Codeine Phosphate Q4H, PRN 2017 Medical 30 MG Oral Tablet Pain Score Center 4-6, 0 Refill(s) Dextrose 50% Syringe 25 gm, 50 Inactive [facility] mL, Route: 2016 Medical IVP, Drug Center Form: INJ, Dosing Weight 116.364, kg, PRN, PRN Blood Glucose Results, Start date: 09/12/16 11:50:00 CDT, Duration: 30 day, Stop date: 10/12/16 11:49:00 CDT Glucagon 1 mg, Route: Inactive [facility] IM, Drug 2016 Medical form: Center PDR/INJ, PRN, Dosing Weight 116.364, kg, PRN Blood Glucose Results, Start date: 09/12/16 11:50:00 CDT, Duration: 30 day, Stop date: 10/12/16 11:49:00 CDT valsartan 320 mg, 2 Inactive [facility] tab, Route: 2017 Medical PO, Drug Center form: TAB, Daily, Dosing Weight 116.364, kg, Start date: 09/12/16 9:00:00 CDT, Duration: 30 day, Stop date: 10/11/16 9:00:00 CDTNotes: Same as Diovan Cefazolin 1 gm, Route: No Longer [facility] IVPB, Drug Active 2016 Medical form: Center PDR/INJ, ABXQ8H, Dosing Weight 116.364, kg, Start date: 09/11/16 23:00:00 CDT, Duration: 2 doses or times, Stop date: 09/12/16 7:00:00 CDT, ABX Indication: Surgical ProphylaxisN otes: (Same As: Alida Kennedy) MEDICATION WASTE Product Size: 1000 mg Product Wasted: _0_ mg Calcium Gluconate 3 gm, 30 mL, No Longer [place] Route: IVPB, Active 2016 Medical PRN, Dosing Center Weight 116.364, kg, PRN Abnormal Lab Result, For NON-ICU Patients Only., Start date: 09/11/16 22:33:00 CDT, Duration: 30 day, Stop date: 10/11/16 22:32:00 CDTNotes: WASTE: F/P - Sink; E - Municipal Trash Bin Magnesium Oxide 800 mg, 2 No Longer [place] tab, Route: Active 2016 Medical PO, Drug Center form: TAB, PRN, Dosing Weight 116.364, kg, PRN Abnormal Lab Result, For NON-ICU Patients Only., Start date: 09/11/16 22:33:00 CDT, Duration: 30 day, Stop date: 10/11/16 22:32:00 CDTNotes: (Same as: Mag-Ox 400) Magnesium oxide [id number] elemental magnesium Dose=____mg magnesium oxide (___mg elemental magnesium) Magnesium Sulfate 2 gm, 50 mL, No Longer [place] Route: IVPB, Active 2016 Medical Drug form: Center INJ, PRN, Dosing Weight 116.364, kg, PRN Abnormal Lab Result, For NON-ICU Patients Only., Start date: 09/11/16 22:33:00 CDT, Duration: 30 day, Stop date: 10/11/16 22:32:00 CDTNotes: WASTE: F/P - Sink; E - Municipal Trash Bin sodium phosphate 15 mmol, 5 No Longer [place] mL, Route: Active 2016 Medical IVPB, PRN, Center Dosing Weight 116.364, kg, PRN Abnormal Lab Result, For NON-ICU Patients Only., Start date: 09/11/16 22:33:00 CDT, Duration: 30 day, Stop date: 10/11/16 22:32:00 CDT Potassium Chloride 10 mEq, 50 No Longer [place] mL, Route: Active 2016 Medical IVPB, Drug Center form: INJ, PRN, Dosing Weight 116.364, kg, PRN Abnormal Lab Result, For NON-ICU Patients Only, Start date: 09/11/16 22:33:00 CDT, Duration: 30 day, Stop date: 10/11/16 22:32:00 CDTNotes: (Same as: KCL) Infuse over 2 hours. potassium 2 pkt, No Longer [place] phosphate-sodium Route: PO, Active 2016 Medical phosphate 250 mg-280 Drug Form: [place] mg-160 mg oral PDR/REC, powder for Dosing reconstitution Weight 116.364, kg, PRN, PRN Abnormal Lab Result, For NON-ICU Patients Only, Start date: 09/11/16 22:33:00 CDT, Duration: 30 day, Stop date: 10/11/16 22:32:00 CDTNotes: (Same as: Phos-NaK) Each 1.5 gm pkt has 250mg phosphorous. Mix w/2.5oz water and stir. potassium phosphate 15 mmol, 5 No Longer [facility] mL, Route: Active 2016 [facility] IVPB, PRN, [place] Dosing Weight 116.364, kg, PRN Abnormal Lab Result, For NON-ICU Patients Only., Start date: 09/11/16 22:33:00 CDT, Duration: 30 day, Stop date: 10/11/16 22:32:00 CDTNotes: (Same as: K Phosphate.) 1 mMol phoshate has 1.47 mEq potassium Infuse over 4 hours Magnesium Sulfate 2 gm, 50 mL, No Longer [facility] Route: IVPB, Active 2016 Medical Drug form: [place] INJ, ONCE, Dosing Weight 116.364, kg, Total dose=2 gm, Start date: 09/11/16 22:22:00 CDT, Duration: 1 doses or times, Stop date: 09/11/16 22:22:00 CDTNotes: WASTE: F/P - Sink; E - Municipal Trash Bin Magnesium Sulfate 2 gm, 50 mL, Inactive [place] Route: IVPB2016 Medical Drug form: [place] INJ, ONCE, Dosing Weight 116.364, kg, Total dose=2 gm, Start date: 09/11/16 22:21:00 CDT, Duration: 1 doses or times, Stop date: 09/11/16 22:21:00 CDTNotes: WASTE: F/P - Sink; E - Municipal Trash Bin Potassium Chloride 40 mEq, 2 Inactive [facility] tab, Route: 2017 Medical PO, Drug Center form: ERTAB, ONCE, Dosing Weight 116.364, kg, Start date: 09/11/16 22:21:00 CDT, Stop date: 09/11/16 22:21:00 CDTNotes: (Same as: K-Dur 20) "Do Not Crush" With food and full glass of water Pradaxa 150 mg, 1 No Longer [facility] cap, Route: Active 2016 Medical PO, Drug Center form: CAP, Q12H, Dosing Weight 116.364, kg, Start date: 09/11/16 21:00:00 CDT, Duration: 30 day, Stop date: 10/11/16 9:00:00 CDTNotes: DO NOT break, chew or open capsules for administrati on. metoprolol tartrate 25 mg, Inactive [facility] Route: PO, 2016 Medical Drug form: Center TAB, Q12H, Dosing Weight 116.364, kg, Start date: 09/11/16 21:00:00 CDT, Duration: 30 day, Stop date: 10/11/16 9:00:00 CDT Lasix 20 mg, Inactive [facility] Route: IVP, 2016 Medical Drug form: [place] INJ, ONCE, Dosing Weight 116.364, kg, Start date: 09/11/16 18:38:00 CDT, Stop date: 09/11/16 18:38:00 CDT Diltiazem 125 mg, 25 No Longer [facility] mL, Rate: Active 2016 [facility] Titrate, [place] Start Dose: 2 mg/hr, Titration: none keep at 2mg/hr, Goal(s): Maintain HR Notes: (Same as: Cardizem) tramadol 50 mg, PO, No Longer [place] hydrochloride 50 MG Q4H, PRN Active 2016 Medical Oral Tablet Pain Score [place] 1-3, # 10 tab, 0 Refill(s) tramadol [...] 300 MG 1 tab, PO, No Longer [place] / Codeine Phosphate Q4H, PRN Active 2016 Medical 15 MG Oral Tablet Pain Score Center 4-6, # 12 tab, 0 Refill(s) cephalexin 500 mg 500 mg=1 Active [place] oral capsule cap, PO, 2017 Medical TID, # 15 Center cap, 0 Refill(s) acetaminophen-codein 1 tab, No Longer [place] e #3 Route: PO, Active 2016 Medical Drug Form: Center TAB, Dosing Weight 116.364, kg, Q4H, PRN Pain Score 4-6, Start date: 09/11/16 16:59:00 CDT, Duration: 30 day, Stop date: 10/11/16 16:58:00 CDTNotes: Do not exceed 4gm/day of acetaminophe n. (Same as: Tylenol with Codeine # 3) dabigatran etexilate 150 mg=1 On Hold [place] 150 MG Oral Capsule cap, PO, 2017 Medical [Pradaxa] Q12H, # 180 Center cap, 3 Refill(s) Metformin 850 mg, PO, Active [place] QAM, 0 2017 Medical Refill(s) Center valsartan 320 mg 320 mg=1 Active [place] oral tablet tab, PO, 2017 Medical Daily, # 90 Center tab, 0 Refill(s) Glipizide 10 MG Oral 10 mg=1 tab, Active [place] Tablet PO, 2017 Medical BID-Before [place] Meals, # 180 tab, 1 Refill(s) sodium chloride 0.9% 1,000 mL, No Longer [place] 1000 ml INJ 1,000 mL Rate: 50 Active 2016 Medical ml/hr, [place] Infuse over: 20 hr, Route: IV, Dosing [...] 1 drp, Inactive Ophthalmic Solution Route: 2014 [facility] [Mydriacyl] Operative Eye, Q5Min, Drug form: SOLN, Start date: 03/06/14 11:05:00, Duration: 3 doses or times, Stop date: 03/06/14 11:15:00Note s: (Same As: Mydriacyl, Opticyl, Tropicacyl) canagliflozin 100 MG 100 mg=1 Active Oral Tablet tab, PO, 2014 [facility] [Invokana] Daily, 0 Refill(s) lisinopril 20 mg 20 mg=1 tab, Active oral tablet PO, Daily, 0 2014 [facility] Refill(s) glyBURIDE 5 mg oral 10 mg=2 tab, Active tablet PO, BID, 0 2014 [facility] Refill(s) Aspirin Low Dose 81 PO, Daily, 0 Active mg oral tablet Refill(s) 2014 [facility] Hydrochlorothiazide 1 tab, PO, Active 50 MG / Triamterene Daily, # 30 2014 [facility] 75 MG Oral Tablet tab, 0 Refill(s) Allergies, Adverse Reactions, Alerts Substance Category Reaction Severity Reaction Status Date Comments Source type Reported NKFA Assertion Drug Active [facility] Immunizations Immunization Date Given Site Status Last Updated Comments Source Results Order Name Results Value Reference Date Interpretation Comments Source Range Chest 2 Chest 2 EXAM: XR CHEST 2 VIEWS 09/12 [facility] DX views /2016 - [facility] DATE: 09/12/2016 3:00 AM CDT Read by: [...] Phosphorus 3.1 mg/dL 2.5 - 4.5 09/12 [facility] CHEM PANEL Magnesium 2.6 mg/dL 1.8 - 2.4 09/12 [facility] ELECTROLYT AGAP 11.1 meq/L 10.0 - 09/12 [facility] 20.0 [facility] ELECTROLYT Potassium 4.1 meq/L 3.5 - 5.1 09/12 [facility] ELECTROLYT Chloride Lvl 105 meq/L 95 - 109 09/12 [facility] ELECTROLYT CO2 25 meq/L 24 - 32 09/12 [facility] ELECTROLYT eGFR 74 09/12 Result Comment: The eGFR is calculated using the CKD-EPI formula. In most young, healthy individuals the eGFR will be >90 mL/ min/1.73m2. The eGFR declines with age. An eGFR of 60-89 may be normal in [facility] mL/min/1. some populations, particularly the elderly, for whom the CKD-EPI formula has not been extensively validated. Use of the eGFR is not recommended in the following populations: [address] Individuals with unstable creatinine concentrations, including [...] BUN 16 mg/dL 7 - 22 09/[address] ELECTROLYT Glucose Lvl 177 mg/dL 70 - 99 09/[address] ELECTROLYT Calcium Lvl 8.7 mg/dL 8.5 - 10.5 09/[address] ELECTROLYT Creatinine 1.00 mg/dL 0.50 - 09/12 [facility] Lvl 1. [facility] ELECTROLYT Sodium Lvl 137 meq/L 135 - 145 09/[address] HEMATOLOGY Plt Morph Normal 09/12 [facility] (09/12/16 5:03 AM) [place] HEMATOLOGY Bands 0.0 % 0.0 - 11.0 09/[address] HEMATOLOGY Atypical 0.0 % <=0.0 % 09/12 [facility] Lymph [facility] HEMATOLOGY Monocytes 17.0 % 2.0 - 12.0 09/[address] HEMATOLOGY RBC Morph Normal 09/12 [facility] (09/12/16 5:03 AM) [place] HEMATOLOGY Eosinophils 1.0 % 0.0 - 4.0 09/[address] HEMATOLOGY Lymphocytes 27.0 % 20.0 - 09/12 [place] 40.0 [facility] HEMATOLOGY Segs-Bands # 4.8 K/CMM 1.5 - 8.1 09/[address] HEMATOLOGY Lymphocytes 2.3 K/CMM 1.0 - 5.5 09/12 [facility] HEMATOLOGY Segs 55.0 % 45.0 - 09/12 [place] 75.0 [facility] HEMATOLOGY Eosinophils 0.1 K/CMM 0.0 - 0.5 09/12 [facility] HEMATOLOGY Monocytes # 1.5 K/CMM 0.0 - 0.8 09/12 [facility] HEMATOLOGY MPV 7.7 fL 7.4 - 10.4 09/12 [facility] HEMATOLOGY MCH 29.8 pg 27.0 - 09/12 31.0 [facility] HEMATOLOGY MCV 88.2 fL 80.0 - 09/12 [place] 94.0 [facility] HEMATOLOGY Platelet 177 K/CMM 133 - 450 09/12 [facility] HEMATOLOGY RDW 14.7 % 11.5 - 08 14.5 [facility] HEMATOLOGY MCHC 33.8 g/dL 32.0 - 09/12 36.0 [facility] HEMATOLOGY RBC 3.97 M/CMM 4.70 - 09/12 [place] 6.10 [facility] HEMATOLOGY Hgb 11.8 g/dL 14.0 - 09/12 18.0 [facility] HEMATOLOGY WBC 8.7 K/CMM 3.7 - 10.4 09/12 [facility] HEMATOLOGY Hct 35.0 % 42.0 - 09/12 54.0 [facility] CHEM PANEL eGFR 68 09/11 Result Comment: The eGFR is calculated using the CKD-EPI formula. In most young, healthy individuals the eGFR will be >90 mL/ min/1.73m2. The eGFR declines with age. An eGFR of 60-89 may be normal in [facility] mL/min/1.7 some populations, particularly the elderly, for whom the CKD-EPI formula has not been extensively validated. Use of the eGFR is not recommended in the following populations: [address] Individuals with unstable creatinine concentrations, including [...] PANEL AGAP 13.8 meq/L 10.0 - 09/11 [facility] 20.0 [facility] CHEM PANEL Calcium Lvl 9.0 mg/dL 8.5 - 10.5 09/11 [facility] CHEM PANEL CO2 26 meq/L 24 - 32 09/11 [facility] CHEM PANEL Chloride Lvl 104 meq/L 95 - 109 09/11 [facility] CHEM PANEL Potassium 3.8 meq/L 3.5 - 5.1 09/11 [facility] CHEM PANEL Sodium Lvl 140 meq/L 135 - 145 09/11 [facility] CHEM PANEL Creatinine 1.07 mg/dL 0.50 - 09/11 [facility] 1.40 [facility] CHEM PANEL BUN 13 mg/dL 7 - 22 09/11 [facility] CHEM PANEL Glucose Lvl 146 mg/dL 70 - 99 09/11 [facility] Chest 1 v Chest 1 v Chest one view, 09/11/2016 at 1752 hours 09/11 - [facility] - Medical Placement Placement DX Center [...] ventricle. BLOOD BANK ABO/Rh O POS 09/11 [facility] RESULTS [facility] BLOOD BANK Antibody Negative 09/11 [facility] RESULTS [facility] (09/11/16 11:12 AM) Center CHEM PANEL Phosphorus 3.3 mg/dL 2.5 - 4.5 09/11 [facility] CHEM PANEL Magnesium 1.6 mg/dL 1.8 - 2.4 09/11 [facility] ELECTROLYT AGAP 9.7 meq/L 10.0 - 09/11 [facility] 20.0 [facility] ELECTROLYT eGFR 69 09/11 Result Comment: The eGFR is calculated using the CKD-EPI formula. In most young, healthy individuals the eGFR will be >90 mL/ min/1.73m2. The eGFR declines with age. An eGFR of 60-89 may be normal in [facility] mL/min/1.7 some populations, particularly the elderly, for whom the CKD-EPI formula has not been extensively validated. Use of the eGFR is not recommended in the following populations: [address] Individuals with unstable creatinine concentrations, including [...] CO2 28 meq/L 24 - 32 09/11 [facility] ELECTROLYT Chloride Lvl 102 meq/L 95 - 109 09/11 [facility] ELECTROLYT Potassium 3.7 meq/L 3.5 - 5.1 09/11 [facility] ELECTROLYT Calcium Lvl 8.9 mg/dL 8.5 - 10.5 09/11 [facility] ELECTROLYT Sodium Lvl 136 meq/L 135 - 145 09/11 [facility] ELECTROLYT Creatinine 1.06 mg/dL 0.50 - 09/11 [facility] Lvl 1.40 /2016 [facility] ELECTROLYT BUN 15 mg/dL 7 - 22 09/11 [facility] ELECTROLYT Glucose Lvl 87 mg/dL 70 - 99 09/11 [facility] HEMATOLOGY Hct 33.1 % 42.0 - 09/11 [facility] 54.0 [facility] HEMATOLOGY Platelet 188 K/CMM 133 - 450 09/11 [facility]2016 [facility] HEMATOLOGY Hgb 11.0 g/dL 14.0 - 08 [facility] 18.0 [facility] HEMATOLOGY MPV 7.5 fL 7.4 - 10.4 09/11 [facility] HEMATOLOGY MCV 89.2 fL 80.0 - 09/11 94.0 [facility] HEMATOLOGY MCH 29.5 pg 27.0 - 08 31.0 [facility] HEMATOLOGY RBC 3.72 M/CMM 4.70 - 09/11 6.10 [facility] HEMATOLOGY RDW 14.7 % 11.5 - 09/11 14.5 [facility] HEMATOLOGY WBC 8.2 K/CMM 3.7 - 10.4 09/11 [facility] HEMATOLOGY MCHC 33.1 g/dL 32.0 - 09/11 36.0 [facility] HEMATOLOGY PT 16.6 s 12.0 - 09/11 14.7 [facility] HEMATOLOGY INR 1.32 0.85 - 09/11 1.17 [facility] HEMATOLOGY PTT 43.0 s 22.9 - 09/11 35.8 [facility] HEMATOLOGY Monocytes # 1.6 K/CMM 0.0 - 0.8 09/11 [facility] HEMATOLOGY Eosinophils 0.3 K/CMM 0.0 - 0.5 09/11 [facility] HEMATOLOGY Lymphocytes 1.7 K/CMM 1.0 - 5.5 09/11 [facility] HEMATOLOGY Basophils 0.5 % 0.0 - 1.0 09/11 [facility] HEMATOLOGY Segs-Bands # 4.5 K/CMM 1.5 - 8.1 09/11 [facility] HEMATOLOGY Eosinophils 3.4 % 0.0 - 4.0 09/11 [facility] HEMATOLOGY Segs 55.3 % 45.0 - 09/11 75.0 [facility] HEMATOLOGY Lymphocytes 21.2 % 20.0 - 08 40.0 [facility] HEMATOLOGY Monocytes 19.6 % 2.0 - 12.0 09/11 [facility] CHEM PANEL Calcium Lvl 9.4 mg/dL 8.5 - 10.5 03/05 [facility] CHEM PANEL CO2 26 meq/L 24 - 32 03/05 [facility] CHEM PANEL eGFR 40 03/05 1Result [...] is not recommended in the following populations: [address] Individuals with unstable creatinine concentrations, including [...] BUN 45 mg/dL 7 - 22 03/05 [facility] CHEM PANEL Glucose Lvl 100 mg/dL 70 - 99 03/05 2Interpretive Data: Adult reference range values reflect the clinical guidelines of the [employer]. [facility] CHEM PANEL Potassium 4.4 meq/L 3.5 - 5.1 03/05 Lv [facility] CHEM PANEL Chloride Lvl 106 meq/L 95 - 109 03/05 [facility] CHEM PANEL Creatinine 1.7 mg/dL 0.5 - 1.4 03/05 Lvl [facility] CHEM PANEL Sodium Lvl 139 meq/L 135 - 145 03/05 [facility] CHEM PANEL AGAP 11.4 meq/L 10.0 - 03/05 [facility] 20.0 [facility] HEMATOLOGY MPV 7.3 fL 7.4 - 10.4 03/[address] [facility] MCHC 33.9 g/dL 32.0 - 03/05 [facility] 36.0 [facility] HEMATOLOGY Platelet 198 K/CMM 133 - 450 03/05 [facility] HEMATOLOGY Hgb 13.7 g/dL 14.0 - 03/05 [facility] 18.0 [facility] HEMATOLOGY RDW 14.6 % 11.5 - 03/05 [facility] 14. [facility] HEMATOLOGY Hct 40.4 % 42.0 - 03/05 [facility] [address] [facility] MCH 31.5 pg 27.0 - 03/05 [facility] 31.0 [facility] HEMATOLOGY MCV 92.8 fL 80.0 - 03/05 [facility] 94.0 [facility] HEMATOLOGY RBC 4.35 M/CMM 4.70 - 03/05 [facility] 6.10 /2015 [facility] HEMATOLOGY WBC 9.4 K/CMM 3.7 - 10.4 03/05 [facility] HEMATOLOGY Eosinophils 2.4 % 0.0 - 4.0 03/05 [facility] HEMATOLOGY Monocytes 14.6 % 2.0 - 12.0 03/05 [facility] HEMATOLOGY Segs-Bands # 5.5 K/CMM 1.5 - 8.1 03/05 [facility] HEMATOLOGY Lymphocytes 24.1 % 20.0 - 03/05 40.0 [facility] HEMATOLOGY Segs 58.6 % 45.0 - 03/05 75.0 [facility] HEMATOLOGY Basophils # 0.0 K/CMM 0.0 - 0.2 03/05 [facility] HEMATOLOGY Eosinophils 0.2 K/CMM 0.0 - 0.5 03/05 [facility] HEMATOLOGY Basophils 0.3 % 0.0 - 1.0 03/05 [facility] HEMATOLOGY Monocytes # 1.4 K/CMM 0.0 - 0.8 03/05 [facility] HEMATOLOGY Lymphocytes 2.3 K/CMM 1.0 - 5.5 03/05 [facility] Vital Signs Vital Sign Value Date Comments Source Temperature Oral (F) 97.9 F 09/12/2016 [facility] Respitory Rate 23 09/12/2016 [facility] Systolic (mm Hg) 143 09/12/2016 [facility] Diastolic (mm Hg) 68 09/12/2016 [facility] Respitory Rate 20 09/12/2016 [facility] Systolic (mm Hg) 148 09/12/2016 [facility] Diastolic (mm Hg) 73 09/12/2016 [facility] Respitory Rate 21 09/12/2016 [facility] Systolic (mm Hg) 129 09/12/2016 [facility] Diastolic (mm Hg) 61 09/12/2016 [facility] Temperature Oral (F) 97.9 F 09/12/2016 [facility] Temperature Oral (F) 97.6 F 09/12/2016 [facility] BMI Calculated 34.79 09/11/2016 [facility] Weight 116.364 09/11/2016 [facility] Height 182.88 cm 09/11/2016 [facility] Systolic (mm Hg) 100 03/06/2014 [facility] Diastolic (mm Hg) 55 03/06/2014 [facility] Respitory Rate 16 03/06/2014 [facility] Diastolic (mm Hg) 75 03/06/2014 [facility] Systolic (mm Hg) 100 03/06/2014 [facility] Respitory Rate 17 03/06/2014 [facility] Diastolic (mm Hg) 49 03/06/2014 [facility] Systolic (mm Hg) 101 03/06/2014 [facility] Respitory Rate 14 03/06/2014 [facility] Heart Rate 97 03/06/2014 [facility] Heart Rate 96 03/05/2014 [facility] BMI Calculated 38.83 03/05/2014 [facility] Weight 126.3 03/05/2014 [facility] Height 180.34 cm 03/05/2014 [facility] Encounters Location Location Encounter Encounter Reason Attending ADM DC Status Source Details Type Number For Provider Date Date Visit [facility] OBS Day [id number] Jean Carlos 03/06 03/06 [facility]2014 [facility] Bedded [id number] Eddie 09/11 09/12 [facility]2016 [facility] Procedures Procedure Code Date Perfomer Comments Source Arthroplasty of [id number] 2012 tight [facility] knee<sup>1</sup> [facility] Procedure<sup>2</s [id number] right great Edith [facility] up> toe ,i/2 [facility] 1976 Arthroplasty of [id number] [facility] knee<sup>1</sup> Procedure<sup>2</s [id number] [address] [facility] up> toe ,i/2 amp 1976
--- OUTSIDE RECORDS SUMMARY | 2017-12-21 09:46 | XMS REPORT ---
:1945 Author Organization [facility] Address [address] [place] [address] [address] [place] [address] Care Team Providers Name Role Phone ABIEL [...] (BEAKER) (test 270 mg/dL 70-110 TESTED AT [address] fcwi=6763) [facility] [address] POCT-GLUCOSE [id number] 08:58:00 Test Item Value Reference Range Comments POC-GLUCOSE METER (BEAKER) 147 mg/dL 70-110 TESTED AT [address] (test zetn=3699) [facility] [address] CBC W/PLT COUNT & AUTO [id number] 08:53:00 Test Item Value Reference Range Comments WHITE BLOOD CELL COUNT (BEAKER) (test ohpc=269) 5.6 K/ L 3.5-10.5 RED BLOOD CELL COUNT (BEAKER) (test cyzv=851) 4.28 M/ L 4.63-6.08 HEMOGLOBIN (BEAKER) (test ecnq=443) 11.7 GM/DL 13.7-17.5 HEMATOCRIT (BEAKER) (test dejo=802) 37.4 % 40.1-51.0 MEAN CORPUSCULAR VOLUME (BEAKER) (test paef=776) 87.4 fL 79.0-92.2 MEAN CORPUSCULAR HEMOGLOBIN (BEAKER) (test 27.3 pg 25.7-32.2 doiy=727) MEAN CORPUSCULAR HEMOGLOBIN CONC (BEAKER) (test 31.3 GM/DL 32.3-36.5 rlzg=728) RED CELL DISTRIBUTION WIDTH (BEAKER) (test 16.2 % 11.6-14.4 pwqt=531) PLATELET COUNT (BEAKER) (test zyhe=155) 100 K/CU MM 150-450 MEAN PLATELET VOLUME (BEAKER) (test zcba=152) 10.7 fL 9.4-12.4 NUCLEATED RED BLOOD CELLS (BEAKER) (test 0 /100 WBC 0-0 feor=868) NEUTROPHILS RELATIVE PERCENT (BEAKER) (test 50 % mcvp=728) LYMPHOCYTES RELATIVE PERCENT (BEAKER) (test 30 % jokt=937) MONOCYTES RELATIVE PERCENT (BEAKER) (test 18 % mkbj=218) EOSINOPHILS RELATIVE PERCENT (BEAKER) (test 2 % oxhv=043) BASOPHILS RELATIVE PERCENT (BEAKER) (test 1 % prpm=781) NEUTROPHILS ABSOLUTE COUNT (BEAKER) (test 2.77 K/ L 1.78-5.38 lwzm=500) LYMPHOCYTES ABSOLUTE COUNT (BEAKER) (test 1.66 K/ L 1.32-3.57 bggg=990) MONOCYTES ABSOLUTE COUNT (BEAKER) (test 1.02 K/ L 0.30-0.82 bwsh=836) EOSINOPHILS ABSOLUTE COUNT (BEAKER) (test 0.09 K/ L 0.04-0.54 xoke=645) BASOPHILS ABSOLUTE COUNT (BEAKER) (test 0.03 K/ L 0.01-0.08 cfom=223) IMMATURE GRANULOCYTES-RELATIVE PERCENT (BEAKER) 0 % 0-1 (test rnak=3016) [id number] 08:05:00 Test Item Value Reference Range Comments MAGNESIUM (BEAKER) (test kzmd=073) 1.5 mg/dL 1.6-2.6 BASIC METABOLIC [id number] 08:05:00 Test Item Value Reference Range Comments SODIUM (BEAKER) (test 137 meq/L 136-145 dwwy=263) POTASSIUM (BEAKER) (test 3.3 meq/L 3.5-5.1 ivge=448) CHLORIDE (BEAKER) (test 98 meq/L 98-107 nogr=363) CO2 (BEAKER) (test 27 meq/L 22-29 ujwy=116) BLOOD UREA NITROGEN 30 mg/dL 7-21 (BEAKER) (test tmvc=395) CREATININE (BEAKER) (test 1.59 mg/dL 0.57-1.25 zbsp=021) GLUCOSE RANDOM (BEAKER) 116 mg/dL 70-105 (test ctcq=095) CALCIUM (BEAKER) (test 9.0 mg/dL 8.4-10.2 pati=414) EGFR (BEAKER) (test 43 mL/min/1.73 sq m ESTIMATED GFR IS NOT ibml=9885) ACCURATE CREATININE CLEARANCE IN PREDICTING GLOMERULAR FILTRATION RATE. ESTIMATED GFR IS NOT APPLICABLE FOR DIALYSIS PATIENTS. POCT-GLUCOSE [id number] 21:57:00 Test Item Value Reference Range Comments POC-GLUCOSE METER (BEAKER) 219 mg/dL 70-110 TESTED AT [address] (test rrcv=4355) [facility] [address] POCT-GLUCOSE [id number] 17:24:00 Test Item Value Reference Range Comments POC-GLUCOSE METER (BEAKER) 247 mg/dL 70-110 TESTED AT [address] (test hbdz=6432) [facility] [address] CBC W/PLT COUNT & AUTO [id number] 13:56:00 Test Item Value Reference Range Comments WHITE BLOOD CELL COUNT (BEAKER) (test mxzr=748) 6.4 K/ L 3.5-10.5 RED BLOOD CELL COUNT (BEAKER) (test wvuk=659) 4.04 M/ L 4.63-6.08 HEMOGLOBIN (BEAKER) (test svmr=161) 10.9 GM/DL 13.7-17.5 HEMATOCRIT (BEAKER) (test kqtc=706) 35.4 % 40.1-51.0 MEAN CORPUSCULAR VOLUME (BEAKER) (test yjvh=176) 87.6 fL 79.0-92.2 MEAN CORPUSCULAR HEMOGLOBIN (BEAKER) (test 27.0 pg 25.7-32.2 hbsa=664) MEAN CORPUSCULAR HEMOGLOBIN CONC (BEAKER) (test 30.8 GM/DL 32.3-36.5 ebpp=631) RED CELL DISTRIBUTION WIDTH (BEAKER) (test 16.1 % 11.6-14.4 siqn=495) PLATELET COUNT (BEAKER) (test vstq=371) 98 K/CU MM 150-450 MEAN PLATELET VOLUME (BEAKER) (test yuvt=645) 10.5 fL 9.4-12.4 NUCLEATED RED BLOOD CELLS (BEAKER) (test 0 /100 WBC 0-0 sbbu=114) IMMATURE GRANULOCYTES-RELATIVE PERCENT (BEAKER) 0 % 0-1 (test loaw=9114) (MANUAL DIFFERENTIAL)2017-02-07 13:56:00 Test Item Value Reference Range Comments NEUTROPHILS - REL (DIFF) (BEAKER) (test dyva=2936) 52 % LYMPHOCYTES - REL (DIFF) (BEAKER) (test aiho=2379) 26 % MONOCYTES - REL (DIFF) (BEAKER) (test iagq=4731) 14 % EOSINOPHILS - REL (DIFF) (BEAKER) (test yyod=7798) 6 % BASOPHILS - REL (DIFF) (BEAKER) (test vrjm=3969) 0 % BANDS - REL (DIFF) (BEAKER) (test hotf=6919) 1 % 0-10 ATYPICAL LYMPHOCYTE - REL (DIFF) (BEAKER) (test 1 % 0-0 ssvh=312) NEUTROPHILS - ABS (DIFF) (BEAKER) (test tbjv=8086) 3.33 K/ L 1.80-8.00 LYMPHOCYTES - ABS (DIFF) (BEAKER) (test avic=5937) 1.66 K/ L 1.48-4.50 MONOCYTES - ABS (DIFF) (BEAKER) (test hwwl=9723) 0.90 K/ L 0.00-1.30 EOSINOPHILS - ABS (DIFF) (BEAKER) (test jbta=1379) 0.38 K/ L 0.00-0.50 BASOPHILS - ABS (DIFF) (BEAKER) (test yalv=4704) 0.00 K/ L 0.00-0.20 BANDS-ABS (DIFF) (BEAKER) (test axlf=7176) 0.1 K/ L 0.0-0.8 ATYPICAL LYMPHOCYTES - ABS (DIFF) (BEAKER) (test 0.06 K/ L 0.00-0.00 aokq=629) TOTAL COUNTED (BEAKER) (test xnuo=9056) 100 BANDS + SEGMENTED NEUTROPHILS (BEAKER) (test 3.39 xseb=4885) WBC MORPHOLOGY (BEAKER) (test yyuz=190) Normal PLT MORPHOLOGY (BEAKER) (test ltza=921) Normal RBC MORPHOLOGY (BEAKER) (test kklj=917) Normal POCT-GLUCOSE [id number] 13:22:00 Test Item Value Reference Range Comments POC-GLUCOSE METER (BEAKER) 226 mg/dL 70-110 TESTED AT [address] (test taxe=2731) [place] [id number] POCT-GLUCOSE [id number] 07:59:00 Test Item Value Reference Range Comments POC-GLUCOSE METER (BEAKER) 216 mg/dL 70-110 TESTED AT [address] (test rcrb=0397) [place] [address] [id number] 05:18:00 Test Item Value Reference Range Comments MAGNESIUM (BEAKER) (test wyjw=522) 1.7 mg/dL 1.6-2.6 BASIC METABOLIC [id number] 05:18:00 Test Item Value Reference Range Comments SODIUM (BEAKER) (test 136 meq/L 136-145 dwys=865) POTASSIUM (BEAKER) (test 3.4 meq/L 3.5-5.1 wptl=933) CHLORIDE (BEAKER) (test 101 meq/L 98-107 npnu=327) CO2 (BEAKER) (test 26 meq/L 22-29 cona=257) BLOOD UREA NITROGEN 25 mg/dL 7-21 (BEAKER) (test mudn=430) CREATININE (BEAKER) (test 1.50 mg/dL 0.57-1.25 vmtx=844) GLUCOSE RANDOM (BEAKER) 216 mg/dL 70-105 (test efny=713) CALCIUM (BEAKER) (test 8.5 mg/dL 8.4-10.2 xpsa=727) EGFR (BEAKER) (test 46 mL/min/1.73 sq m ESTIMATED GFR IS NOT zoju=5460) ACCURATE CREATININE CLEARANCE IN PREDICTING GLOMERULAR FILTRATION RATE. ESTIMATED GFR IS NOT APPLICABLE FOR DIALYSIS PATIENTS. POCT-GLUCOSE [id number] 20:58:00 Test Item Value Reference Range Comments POC-GLUCOSE METER (BEAKER) 260 mg/dL 70-110 TESTED AT [address] (test lgyb=2276) [place] [address] POCT-GLUCOSE [id number] 17:32:00 Test Item Value Reference Range Comments POC-GLUCOSE METER (BEAKER) 237 mg/dL 70-110 TESTED AT [address] (test jhju=5749) [place] [address] POCT-GLUCOSE [id number] 16:21:00 Test Item Value Reference Range Comments POC-GLUCOSE METER (BEAKER) 223 mg/dL 70-[address] [facility] [address] [facility] (test ljtb=1332) [facility] [address] CBC W/PLT COUNT & AUTO [id number] 14:22:00 Test Item Value Reference Range Comments WHITE BLOOD CELL COUNT (BEAKER) (test xulx=896) 6.5 K/ L 3.5-10.5 RED BLOOD CELL COUNT (BEAKER) (test dvcq=318) 4.17 M/ L 4.63-6.08 HEMOGLOBIN (BEAKER) (test bqnh=921) 11.3 GM/DL 13.7-17.5 HEMATOCRIT (BEAKER) (test voef=431) 36.8 % 40.1-51.0 MEAN CORPUSCULAR VOLUME (BEAKER) (test pryb=022) 88.2 fL 79.0-92.2 MEAN CORPUSCULAR HEMOGLOBIN (BEAKER) (test 27.1 pg 25.7-32.2 pbif=642) MEAN CORPUSCULAR HEMOGLOBIN CONC (BEAKER) (test 30.7 GM/DL 32.3-36.5 jjok=284) RED CELL DISTRIBUTION WIDTH (BEAKER) (test 16.1 % 11.6-14.4 lvuw=064) PLATELET COUNT (BEAKER) (test nvsz=478) 116 K/CU MM 150-450 MEAN PLATELET VOLUME (BEAKER) (test cqpk=903) 10.7 fL 9.4-12.4 NUCLEATED RED BLOOD CELLS (BEAKER) (test 0 /100 WBC 0-0 rvjh=047) NEUTROPHILS RELATIVE PERCENT (BEAKER) (test 48 % afvh=920) LYMPHOCYTES RELATIVE PERCENT (BEAKER) (test 30 % ufai=154) MONOCYTES RELATIVE PERCENT (BEAKER) (test 20 % qpms=554) EOSINOPHILS RELATIVE PERCENT (BEAKER) (test 1 % adbz=670) BASOPHILS RELATIVE PERCENT (BEAKER) (test 0 % eyzr=800) NEUTROPHILS ABSOLUTE COUNT (BEAKER) (test 3.09 K/ L 1.78-5.38 bqzy=314) LYMPHOCYTES ABSOLUTE COUNT (BEAKER) (test 1.95 K/ L 1.32-3.57 eqvo=404) MONOCYTES ABSOLUTE COUNT (BEAKER) (test 1.32 K/ L 0.30-0.82 efpp=267) EOSINOPHILS ABSOLUTE COUNT (BEAKER) (test 0.07 K/ L 0.04-0.54 qahe=519) BASOPHILS ABSOLUTE COUNT (BEAKER) (test 0.02 K/ L 0.01-0.08 akci=596) IMMATURE GRANULOCYTES-RELATIVE PERCENT (BEAKER) 0 % 0-1 (test bgpp=9327) (MANUAL DIFFERENTIAL)2017-02-06 14:22:00 Test Item Value Reference Range Comments TOTAL COUNTED (BEAKER) (test dcrr=7932) WBC MORPHOLOGY (BEAKER) (test uiwm=895) Normal PLT MORPHOLOGY (BEAKER) (test icon=828) Normal RBC MORPHOLOGY (BEAKER) (test uvbu=774) Normal POCT-GLUCOSE [id number] 11:52:00 Test Item Value Reference Range Comments POC-GLUCOSE METER (BEAKER) 143 mg/dL 70-110 TESTED AT [address] (test mlrh=0859) [place] [id number] POCT-GLUCOSE [id number] 08:04:00 Test Item Value Reference Range Comments POC-GLUCOSE METER (BEAKER) 86 mg/dL 70-110 TESTED AT [address] (test chib=5935) [place] [address] [id number] 06:07:00 Test Item Value Reference Range Comments MAGNESIUM (BEAKER) (test 1.6 mg/dL 1.6-2.6 Specimen slightly hemolyzed gbzx=685) BASIC METABOLIC [id number] 06:07:00 Test Item Value Reference Range Comments SODIUM (BEAKER) (test 135 meq/L 136-145 cpui=124) POTASSIUM (BEAKER) (test 3.7 meq/L 3.5-5.1 Specimen slightly rcyy=841) hemolyzed CHLORIDE (BEAKER) (test 104 meq/L 98-107 uczk=493) CO2 (BEAKER) (test 22 meq/L 22-29 tqoo=444) BLOOD UREA NITROGEN 27 mg/dL 7-21 (BEAKER) (test vred=522) CREATININE (BEAKER) (test 1.32 mg/dL 0.57-1.25 Specimen slightly lwmi=266) hemolyzed GLUCOSE RANDOM (BEAKER) 103 mg/dL 70-105 (test bohc=848) CALCIUM (BEAKER) (test 8.4 mg/dL 8.4-10.2 xoev=802) EGFR (BEAKER) (test 53 mL/min/1.73 sq m ESTIMATED GFR IS NOT kkir=2135) ACCURATE CREATININE CLEARANCE IN PREDICTING GLOMERULAR FILTRATION RATE. ESTIMATED GFR IS NOT APPLICABLE FOR DIALYSIS PATIENTS. POCT-GLUCOSE [id number] 20:42:00 Test Item Value Reference Range Comments POC-GLUCOSE METER (BEAKER) 338 mg/dL 70-[address] [facility] [address] [facility] (test bhkt=1055) [facility] [address] POCT-GLUCOSE [id number] 17:41:00 Test Item Value Reference Range Comments POC-GLUCOSE METER (BEAKER) 303 mg/dL 70-110 TESTED AT [address] (test gsno=6377) [facility] [address] RAD, CHEST, 1 VIEW, NON [id number] 14:44:00Reason for exam:->shortness of breath s/p RHCShould this be performed at the bedside?->YesFINAL REPORT CLINICAL HISTORY: shortness of breath s/p RHC TECHNIQUE : 1 viewof the chest. COMPARISON: 01/31/2017 IMPRESSION: Trace bilateral pleural effusions are again seen with left basilar atelectasis. The cardiomediastinal silhouette is magnified by technique with a pacemaker. Signed : Barbara Espinoza MDReport Verified Date/Time: 02/05/2017 14:44:20 Reading Location: [address] Consult Reading Room CBC W/PLT COUNT & AUTO [id number] 14:37:00 Test Item Value Reference Range Comments WHITE BLOOD CELL COUNT (BEAKER) (test xxmb=076) 7.1 K/ L 3.5-10.5 RED BLOOD CELL COUNT (BEAKER) (test yrul=303) 4.34 M/ L 4.63-6.08 HEMOGLOBIN (BEAKER) (test cewr=990) 11.8 GM/DL 13.7-17.5 HEMATOCRIT (BEAKER) (test rsbv=892) 38.1 % 40.1-51.0 MEAN CORPUSCULAR VOLUME (BEAKER) (test eaxo=157) 87.8 fL 79.0-92.2 MEAN CORPUSCULAR HEMOGLOBIN (BEAKER) (test 27.2 pg 25.7-32.2 uhxw=948) MEAN CORPUSCULAR HEMOGLOBIN CONC (BEAKER) (test 31.0 GM/DL 32.3-36.5 pxof=623) RED CELL DISTRIBUTION WIDTH (BEAKER) (test 16.1 % 11.6-14.4 wiue=755) PLATELET COUNT (BEAKER) (test nwth=946) 112 K/CU MM 150-450 MEAN PLATELET VOLUME (BEAKER) (test fqoy=599) 10.6 fL 9.4-12.4 NUCLEATED RED BLOOD CELLS (BEAKER) (test 0 /100 WBC 0-0 fyfm=641) NEUTROPHILS RELATIVE PERCENT (BEAKER) (test 55 % rdkx=618) LYMPHOCYTES RELATIVE PERCENT (BEAKER) (test 20 % zbcs=075) MONOCYTES RELATIVE PERCENT (BEAKER) (test 23 % dmvb=348) EOSINOPHILS RELATIVE PERCENT (BEAKER) (test 1 % mvyo=187) BASOPHILS RELATIVE PERCENT (BEAKER) (test 0 % iazg=214) NEUTROPHILS ABSOLUTE COUNT (BEAKER) (test 3.91 K/ L 1.78-5.38 oguc=498) LYMPHOCYTES ABSOLUTE COUNT (BEAKER) (test 1.43 K/ L 1.32-3.57 fzyg=533) MONOCYTES ABSOLUTE COUNT (BEAKER) (test 1.67 K/ L 0.30-0.82 gmoe=091) EOSINOPHILS ABSOLUTE COUNT (BEAKER) (test 0.08 K/ L 0.04-0.54 muqj=582) BASOPHILS ABSOLUTE COUNT (BEAKER) (test 0.03 K/ L 0.01-0.08 fmwt=603) IMMATURE GRANULOCYTES-RELATIVE PERCENT (BEAKER) 0 % 0-1 (test kzuh=1138) (MANUAL DIFFERENTIAL)2017-02-05 14:37:00 Test Item Value Reference Range Comments TOTAL COUNTED (BEAKER) (test kukz=4177) WBC MORPHOLOGY (BEAKER) (test bxno=948) Normal PLT MORPHOLOGY (BEAKER) (test yuta=957) Normal RBC MORPHOLOGY (BEAKER) (test pwlv=350) Normal POCT-GLUCOSE [id number] 12:08:00 Test Item Value Reference Range Comments POC-GLUCOSE METER (BEAKER) 197 mg/dL 70-110 TESTED AT [address] (test zzcm=6217) [facility] [address] POCT-GLUCOSE [id number] 07:55:00 Test Item Value Reference Range Comments POC-GLUCOSE METER (BEAKER) 149 mg/dL 70-110 TESTED AT [address] (test dxni=7957) [place] [address] [id number] 05:21:00 Test Item Value Reference Range Comments MAGNESIUM (BEAKER) (test iiws=856) 1.4 mg/dL 1.6-2.6 BASIC METABOLIC [id number] 05:21:00 Test Item Value Reference Range Comments SODIUM (BEAKER) (test 139 meq/L 136-145 dfxl=005) POTASSIUM (BEAKER) (test 3.7 meq/L 3.5-5.1 ntox=317) CHLORIDE (BEAKER) (test 107 meq/L 98-107 vrbc=222) CO2 (BEAKER) (test 23 meq/L 22-29 iuip=058) BLOOD UREA NITROGEN 24 mg/dL 7-21 (BEAKER) (test mojo=910) CREATININE (BEAKER) (test 1.31 mg/dL 0.57-1.25 rhdp=534) GLUCOSE RANDOM (BEAKER) 155 mg/dL 70-105 (test mzlp=446) CALCIUM (BEAKER) (test 8.5 mg/dL 8.4-10.2 hbru=089) EGFR (BEAKER) (test 54 mL/min/1.73 sq m ESTIMATED GFR IS NOT csbm=5742) ACCURATE CREATININE CLEARANCE IN PREDICTING GLOMERULAR FILTRATION RATE. ESTIMATED GFR IS NOT APPLICABLE FOR DIALYSIS PATIENTS. POCT-GLUCOSE [id number] 21:03:00 Test Item Value Reference Range Comments POC-GLUCOSE METER (BEAKER) 296 mg/dL 70-110 TESTED AT [address] (test zoux=4574) [facility] [address] POCT-GLUCOSE [id number] 17:18:00 Test Item Value Reference Range Comments POC-GLUCOSE METER (BEAKER) 275 mg/dL 70-110 TESTED AT [address] (test fdnh=7058) [facility] [address] CBC W/PLT COUNT & AUTO [id number] 15:04:00 Test Item Value Reference Range Comments WHITE BLOOD CELL COUNT (BEAKER) (test hzhs=770) 7.2 K/ L 3.5-10.5 RED BLOOD CELL COUNT (BEAKER) (test ognt=995) 4.24 M/ L 4.63-6.08 HEMOGLOBIN (BEAKER) (test xqkp=099) 11.5 GM/DL 13.7-17.5 HEMATOCRIT (BEAKER) (test tcgk=552) 37.6 % 40.1-51.0 MEAN CORPUSCULAR VOLUME (BEAKER) (test fwqo=440) 88.7 fL 79.0-92.2 MEAN CORPUSCULAR HEMOGLOBIN (BEAKER) (test 27.1 pg 25.7-32.2 ilbx=396) MEAN CORPUSCULAR HEMOGLOBIN CONC (BEAKER) (test 30.6 GM/DL 32.3-36.5 qxcy=181) RED CELL DISTRIBUTION WIDTH (BEAKER) (test 16.3 % 11.6-14.4 vvgg=986) PLATELET COUNT (BEAKER) (test vnoa=736) 116 K/CU MM 150-450 MEAN PLATELET VOLUME (BEAKER) (test guya=734) 10.6 fL 9.4-12.4 NUCLEATED RED BLOOD CELLS (BEAKER) (test 0 /100 WBC 0-0 bcxz=780) NEUTROPHILS RELATIVE PERCENT (BEAKER) (test 51 % pqzi=675) LYMPHOCYTES RELATIVE PERCENT (BEAKER) (test 22 % nnfo=228) MONOCYTES RELATIVE PERCENT (BEAKER) (test 24 % zxns=746) EOSINOPHILS RELATIVE PERCENT (BEAKER) (test 1 % fxro=455) BASOPHILS RELATIVE PERCENT (BEAKER) (test 0 % uotv=715) NEUTROPHILS ABSOLUTE COUNT (BEAKER) (test 3.71 K/ L 1.78-5.38 rgny=892) LYMPHOCYTES ABSOLUTE COUNT (BEAKER) (test 1.62 K/ L 1.32-3.57 tqyc=188) MONOCYTES ABSOLUTE COUNT (BEAKER) (test 1.74 K/ L 0.30-0.82 yxii=756) EOSINOPHILS ABSOLUTE COUNT (BEAKER) (test 0.08 K/ L 0.04-0.54 vaka=538) BASOPHILS ABSOLUTE COUNT (BEAKER) (test 0.03 K/ L 0.01-0.08 dvtv=241) IMMATURE GRANULOCYTES-RELATIVE PERCENT (BEAKER) 1 % 0-1 (test jkgp=8066) (MANUAL DIFFERENTIAL)2017-02-04 15:04:00 Test Item Value Reference Range Comments TOTAL COUNTED (BEAKER) (test phuo=0739) POCT-GLUCOSE [id number] 12:17:00 Test Item Value Reference Range Comments POC-GLUCOSE METER (BEAKER) 208 mg/dL 70-110 TESTED AT [address] (test wljc=5570) [facility] [address] POCT-GLUCOSE [id number] 08:57:00 Test Item Value Reference Range Comments POC-GLUCOSE METER (BEAKER) 230 mg/dL 70-110 TESTED AT [address] (test lxla=4681) [place] [id number] 05:56:00 Test Item Value Reference Range Comments MAGNESIUM (BEAKER) (test rxav=722) 1.6 mg/dL 1.6-2.6 BASIC METABOLIC [id number] 05:56:00 Test Item Value Reference Range Comments SODIUM (BEAKER) (test 137 meq/L 136-145 iiaq=021) POTASSIUM (BEAKER) (test 4.2 meq/L 3.5-5.1 tzpw=561) CHLORIDE (BEAKER) (test 108 meq/L 98-107 qaes=808) CO2 (BEAKER) (test 19 meq/L 22-29 ffyc=364) BLOOD UREA NITROGEN 28 mg/dL 7-21 (BEAKER) (test ohvf=771) CREATININE (BEAKER) (test 1.35 mg/dL 0.57-1.25 chyv=624) GLUCOSE RANDOM (BEAKER) 271 mg/dL 70-105 (test jtpz=471) CALCIUM (BEAKER) (test 8.4 mg/dL 8.4-10.2 wwpi=512) EGFR (BEAKER) (test 52 mL/min/1.73 sq m ESTIMATED GFR IS NOT wnlf=4010) ACCURATE CREATININE CLEARANCE IN PREDICTING GLOMERULAR FILTRATION RATE. ESTIMATED GFR IS NOT APPLICABLE FOR DIALYSIS PATIENTS. POCT-GLUCOSE [id number] 21:20:00 Test Item Value Reference Range Comments POC-GLUCOSE METER (BEAKER) 329 mg/dL 70-110 Notified JUDSON WATTS/TESTED AT [facility] (test ecqq=2196) [facility] [place] [facility] [address] POCT-GLUCOSE [id number] 18:14:00 Test Item Value Reference Range Comments POC-GLUCOSE METER (BEAKER) 299 mg/dL 70-[address] [facility] [address] [place] (test rdth=8031) [facility] [address] CBC W/PLT COUNT & AUTO [id number] 15:17:00 Test Item Value Reference Range Comments WHITE BLOOD CELL COUNT (BEAKER) (test tyyc=477) 8.0 K/ L 3.5-10.5 RED BLOOD CELL COUNT (BEAKER) (test bmka=932) 4.25 M/ L 4.63-6.08 HEMOGLOBIN (BEAKER) (test tpnt=935) 11.7 GM/DL 13.7-17.5 HEMATOCRIT (BEAKER) (test zlbk=918) 37.9 % 40.1-51.0 MEAN CORPUSCULAR VOLUME (BEAKER) (test xvlk=325) 89.2 fL 79.0-92.2 MEAN CORPUSCULAR HEMOGLOBIN (BEAKER) (test 27.5 pg 25.7-32.2 rcqd=951) MEAN CORPUSCULAR HEMOGLOBIN CONC (BEAKER) (test 30.9 GM/DL 32.3-36.5 pbxg=934) RED CELL DISTRIBUTION WIDTH (BEAKER) (test 16.1 % 11.6-14.4 kagm=751) PLATELET COUNT (BEAKER) (test euyj=401) 139 K/CU MM 150-450 MEAN PLATELET VOLUME (BEAKER) (test citg=497) 10.4 fL 9.4-12.4 NUCLEATED RED BLOOD CELLS (BEAKER) (test 0 /100 WBC 0-0 avgs=140) NEUTROPHILS RELATIVE PERCENT (BEAKER) (test 52 % cumv=362) LYMPHOCYTES RELATIVE PERCENT (BEAKER) (test 24 % wyea=840) MONOCYTES RELATIVE PERCENT (BEAKER) (test 22 % xycb=879) EOSINOPHILS RELATIVE PERCENT (BEAKER) (test 2 % tseb=947) BASOPHILS RELATIVE PERCENT (BEAKER) (test 0 % jjxg=170) NEUTROPHILS ABSOLUTE COUNT (BEAKER) (test 4.11 K/ L 1.78-5.38 wzbw=871) LYMPHOCYTES ABSOLUTE COUNT (BEAKER) (test 1.91 K/ L 1.32-3.57 ddud=998) MONOCYTES ABSOLUTE COUNT (BEAKER) (test 1.75 K/ L 0.30-0.82 qvkd=751) EOSINOPHILS ABSOLUTE COUNT (BEAKER) (test 0.14 K/ L 0.04-0.54 oupz=721) BASOPHILS ABSOLUTE COUNT (BEAKER) (test 0.03 K/ L 0.01-0.08 atbr=921) IMMATURE GRANULOCYTES-RELATIVE PERCENT (BEAKER) 0 % 0-1 (test rbrl=7651) (MANUAL DIFFERENTIAL)2017-02-03 15:17:00 Test Item Value Reference Range Comments TOTAL COUNTED (BEAKER) (test bnao=7946) WBC MORPHOLOGY (BEAKER) (test elrm=812) Normal PLT MORPHOLOGY (BEAKER) (test culw=761) Normal RBC MORPHOLOGY (BEAKER) (test cmwn=792) Normal POCT-GLUCOSE [id number] 12:54:00 Test Item Value Reference Range Comments POC-GLUCOSE METER (BEAKER) 173 mg/dL 70-[address] [facility] [address] [facility] (test lhax=1246) [facility] [address] URINALYSIS W/ REFLEX URINE [id number] 12:06:00 Test Item Value Reference Range Comments COLOR (BEAKER) (test rgqn=516) Yellow CLARITY (BEAKER) (test bdiw=223) Clear SPECIFIC GRAVITY UA (BEAKER) (test tscy=001) 1.016 1.001-1.035 PH UA (BEAKER) (test pijj=410) 5.0 5.0-8.0 PROTEIN UA (BEAKER) (test mffp=393) 20 mg/dL Negative GLUCOSE UA (BEAKER) (test fszs=403) 50 mg/dL Negative KETONES UA (BEAKER) (test owkv=565) Negative Negative BILIRUBIN UA (BEAKER) (test ldqk=800) Negative Negative BLOOD UA (BEAKER) (test nxhk=903) Trace Negative NITRITE UA (BEAKER) (test dlrt=484) Negative Negative LEUKOCYTE ESTERASE UA (BEAKER) (test kggl=045) Negative Negative UROBILINOGEN UA (BEAKER) (test mhdp=988) 0.2 mg/dL 0.2-1.0 RBC UA (BEAKER) (test blcs=782) 3 /HPF WBC UA (BEAKER) (test wide=112) 4 /HPF BACTERIA (BEAKER) (test yeyo=300) Occasional MUCUS (BEAKER) (test oksj=6425) Occasional SQUAMOUS EPITHELIAL (BEAKER) (test egpv=482) 1 /HPF AMORPHOUS CRYSTALS (BEAKER) (test fwvh=8257) Occasional SOURCE(BEAKER) (test anaf=6308) CREATININE, RANDOM [id number] 10:52:00 Test Item Value Reference Range Comments CREATININE URINE (BEAKER) (test nmyo=623) 127.3 mg/dL Reference Range: No NormalsPROTEIN, RANDOM [id number] 10:52:00 Test Item Value Reference Range Comments PROTEIN, URINE (BEAKER) (test rpyd=2524) 19 mg/dL 0-14 POCT-GLUCOSE [id number] 07:55:00 Test Item Value Reference Range Comments POC-GLUCOSE METER (BEAKER) 88 mg/dL 70-[address] [facility] [address] [facility] (test vhaa=2534) [facility] [address] [id number] 05:22:00 Test Item Value Reference Range Comments MAGNESIUM (BEAKER) (test jnrd=763) 1.8 mg/dL 1.6-2.6 BASIC METABOLIC [id number] 05:22:00 Test Item Value Reference Range Comments SODIUM (BEAKER) (test 138 meq/L 136-145 qrlm=993) POTASSIUM (BEAKER) (test 4.0 meq/L 3.5-5.1 bcog=359) CHLORIDE (BEAKER) (test 110 meq/L 98-107 jhfx=555) CO2 (BEAKER) (test 21 meq/L 22-29 ccwh=843) BLOOD UREA NITROGEN 31 mg/dL 7-21 (BEAKER) (test iped=649) CREATININE (BEAKER) (test 1.27 mg/dL 0.57-1.25 xrzh=015) GLUCOSE RANDOM (BEAKER) 130 mg/dL 70-105 (test pozv=885) CALCIUM (BEAKER) (test 8.4 mg/dL 8.4-10.2 mear=293) EGFR (BEAKER) (test 56 mL/min/1.73 sq m ESTIMATED GFR IS NOT htoq=9225) ACCURATE CREATININE CLEARANCE IN PREDICTING GLOMERULAR FILTRATION RATE. ESTIMATED GFR IS NOT APPLICABLE FOR DIALYSIS PATIENTS. B-TYPE NATRIURETIC FACTOR (BNP)2017-02-03 05:17:00 Test Item Value Reference Range Comments B-TYPE NATRIURETIC PEPTIDE (BEAKER) (test 315 pg/mL 0-100 bvwm=567) POCT-GLUCOSE [id number] 21:36:00 Test Item Value Reference Range Comments POC-GLUCOSE METER (BEAKER) 230 mg/dL 70-110 TESTED AT [address] (test mrsz=3663) [place] [address] POCT-GLUCOSE [id number] 17:50:00 Test Item Value Reference Range Comments POC-GLUCOSE METER (BEAKER) 185 mg/dL 70-110 TESTED AT [address] (test ozbx=5483) [place] [address] POCT-GLUCOSE [id number] 12:49:00 Test Item Value Reference Range Comments POC-GLUCOSE METER (BEAKER) 168 mg/dL 70-110 TESTED AT [address] (test tlcv=4925) [place] [address] CT, CHEST, WITHOUT [id number] 11:27:00FINAL REPORT Chest CT without contrast Reason [...] MDReport Verified Date/Time: 02/02/2017 11:27:58 Reading Location: [facility] B1 [id number] Ortho Consult Reading Room Electronically signed by: CAR KABA M.D. on 11:27 AMPOCT-GLUCOSE [id number] 08:24:00 Test Item Value Reference Range Comments POC-GLUCOSE METER (BEAKER) 84 mg/dL 70-[address] [facility] [address] [facility] (test eoxw=5077) [facility] [address] [id number] 07:42:00 Test Item Value Reference Range Comments MAGNESIUM (BEAKER) (test zmhu=733) 1.8 mg/dL 1.6-2.6 BASIC METABOLIC [id number] 07:42:00 Test Item Value Reference Range Comments SODIUM (BEAKER) (test 137 meq/L 136-145 edin=411) POTASSIUM (BEAKER) (test 3.8 meq/L 3.5-5.1 bolr=840) CHLORIDE (BEAKER) (test 108 meq/L 98-107 egnr=065) CO2 (BEAKER) (test 20 meq/L 22-29 bgxf=573) BLOOD UREA NITROGEN 35 mg/dL 7-21 (BEAKER) (test kirj=081) CREATININE (BEAKER) (test 1.30 mg/dL 0.57-1.25 cvkn=624) GLUCOSE RANDOM (BEAKER) 102 mg/dL 70-105 (test uuam=287) CALCIUM (BEAKER) (test 8.4 mg/dL 8.4-10.2 ttpx=010) EGFR (BEAKER) (test 54 mL/min/1.73 sq m ESTIMATED GFR IS NOT epnk=8040) ACCURATE CREATININE CLEARANCE IN PREDICTING GLOMERULAR FILTRATION RATE. ESTIMATED GFR IS NOT APPLICABLE FOR DIALYSIS PATIENTS. CBC W/PLT COUNT & AUTO [id number] 07:40:00 Test Item Value Reference Range Comments WHITE BLOOD CELL COUNT (BEAKER) (test rjuy=353) 9.3 K/ L 3.5-10.5 RED BLOOD CELL COUNT (BEAKER) (test vckk=726) 4.32 M/ L 4.63-6.08 HEMOGLOBIN (BEAKER) (test alrk=751) 11.9 GM/DL 13.7-17.5 HEMATOCRIT (BEAKER) (test swfi=369) 38.3 % 40.1-51.0 MEAN CORPUSCULAR VOLUME (BEAKER) (test wtxs=949) 88.7 fL 79.0-92.2 MEAN CORPUSCULAR HEMOGLOBIN (BEAKER) (test 27.5 pg 25.7-32.2 lvgv=499) MEAN CORPUSCULAR HEMOGLOBIN CONC (BEAKER) (test 31.1 GM/DL 32.3-36.5 eujl=048) RED CELL DISTRIBUTION WIDTH (BEAKER) (test 16.4 % 11.6-14.4 kwmn=304) PLATELET COUNT (BEAKER) (test ebff=207) 150 K/CU MM 150-450 MEAN PLATELET VOLUME (BEAKER) (test qakg=191) 10.3 fL 9.4-12.4 NUCLEATED RED BLOOD CELLS (BEAKER) (test 0 /100 WBC 0-0 yaca=963) NEUTROPHILS RELATIVE PERCENT (BEAKER) (test 58 % vdwn=698) LYMPHOCYTES RELATIVE PERCENT (BEAKER) (test 20 % wfti=175) MONOCYTES RELATIVE PERCENT (BEAKER) (test 20 % rawr=920) EOSINOPHILS RELATIVE PERCENT (BEAKER) (test 2 % reun=121) BASOPHILS RELATIVE PERCENT (BEAKER) (test 0 % jtox=072) NEUTROPHILS ABSOLUTE COUNT (BEAKER) (test 5.35 K/ L 1.78-5.38 yqql=210) LYMPHOCYTES ABSOLUTE COUNT (BEAKER) (test 1.84 K/ L 1.32-3.57 nnmd=057) MONOCYTES ABSOLUTE COUNT (BEAKER) (test 1.83 K/ L 0.30-0.82 xmbz=024) EOSINOPHILS ABSOLUTE COUNT (BEAKER) (test 0.16 K/ L 0.04-0.54 hjnr=170) BASOPHILS ABSOLUTE COUNT (BEAKER) (test 0.03 K/ L 0.01-0.08 xizl=301) IMMATURE GRANULOCYTES-RELATIVE PERCENT (BEAKER) 0 % 0-1 (test zclw=5451) POCT-GLUCOSE [id number] 21:29:00 Test Item Value Reference Range Comments POC-GLUCOSE METER (BEAKER) 273 mg/dL 70-110 TESTED AT [address] (test xtiw=5483) [facility] [address] POCT-GLUCOSE [id number] 19:21:00 Test Item Value Reference Range Comments POC-GLUCOSE METER (BEAKER) 286 mg/dL 70-110 TESTED AT [address] (test opno=8008) [facility] [address] POCT-GLUCOSE [id number] 17:33:00 Test Item Value Reference Range Comments POC-GLUCOSE METER (BEAKER) 263 mg/dL 70-110 TESTED AT [address] (test aosm=1439) [facility] [address] POCT-GLUCOSE [id number] 12:25:00 Test Item Value Reference Range Comments POC-GLUCOSE METER (BEAKER) 196 mg/dL 70-110 TESTED AT [address] (test lhah=0520) [facility] [address] CBC W/PLT COUNT & AUTO [id number] 10:54:00 Test Item Value Reference Range Comments WHITE BLOOD CELL COUNT (BEAKER) (test jwuh=678) 9.0 K/ L 3.5-10.5 RED BLOOD CELL COUNT (BEAKER) (test jvvu=460) 4.43 M/ L 4.63-6.08 HEMOGLOBIN (BEAKER) (test xhyu=911) 12.2 GM/DL 13.7-17.5 HEMATOCRIT (BEAKER) (test oefr=228) 39.3 % 40.1-51.0 MEAN CORPUSCULAR VOLUME (BEAKER) (test zitx=656) 88.7 fL 79.0-92.2 MEAN CORPUSCULAR HEMOGLOBIN (BEAKER) (test 27.5 pg 25.7-32.2 egwr=990) MEAN CORPUSCULAR HEMOGLOBIN CONC (BEAKER) (test 31.0 GM/DL 32.3-36.5 dfqh=055) RED CELL DISTRIBUTION WIDTH (BEAKER) (test 16.4 % 11.6-14.4 xpmo=774) PLATELET COUNT (BEAKER) (test xiut=170) 157 K/CU MM 150-450 MEAN PLATELET VOLUME (BEAKER) (test stlz=868) 11.1 fL 9.4-12.4 NUCLEATED RED BLOOD CELLS (BEAKER) (test 0 /100 WBC 0-0 ypct=985) NEUTROPHILS RELATIVE PERCENT (BEAKER) (test 55 % ubre=101) LYMPHOCYTES RELATIVE PERCENT (BEAKER) (test 24 % kfau=791) MONOCYTES RELATIVE PERCENT (BEAKER) (test 19 % gkhf=464) EOSINOPHILS RELATIVE PERCENT (BEAKER) (test 2 % bkzo=011) BASOPHILS RELATIVE PERCENT (BEAKER) (test 0 % izuo=498) NEUTROPHILS ABSOLUTE COUNT (BEAKER) (test 4.95 K/ L 1.78-5.38 jrgs=780) LYMPHOCYTES ABSOLUTE COUNT (BEAKER) (test 2.13 K/ L 1.32-3.57 frnn=279) MONOCYTES ABSOLUTE COUNT (BEAKER) (test 1.71 K/ L 0.30-0.82 dasi=557) EOSINOPHILS ABSOLUTE COUNT (BEAKER) (test 0.17 K/ L 0.04-0.54 sejx=636) BASOPHILS ABSOLUTE COUNT (BEAKER) (test 0.02 K/ L 0.01-0.08 hkfq=559) IMMATURE GRANULOCYTES-RELATIVE PERCENT (BEAKER) 0 % 0-1 (test bxky=6114) (MANUAL DIFFERENTIAL)2017-02-01 10:54:00 Test Item Value Reference Range Comments TOTAL COUNTED (BEAKER) (test jxpx=6316) WBC MORPHOLOGY (BEAKER) (test msnf=451) Normal PLT MORPHOLOGY (BEAKER) (test cdri=769) Normal RBC MORPHOLOGY (BEAKER) (test pljr=745) Normal POCT-GLUCOSE [id number] 08:17:00 Test Item Value Reference Range Comments POC-GLUCOSE METER (BEAKER) 176 mg/dL 70-[address] [facility] [address] [facility] (test cqbk=3669) [facility] [address] [id number] 06:41:00 Test Item Value Reference Range Comments MAGNESIUM (BEAKER) (test nrej=611) 1.7 mg/dL 1.6-2.6 BASIC METABOLIC [id number] 06:41:00 Test Item Value Reference Range Comments SODIUM (BEAKER) (test 136 meq/L 136-145 gmxw=857) POTASSIUM (BEAKER) (test 3.6 meq/L 3.5-5.1 tvqa=677) CHLORIDE (BEAKER) (test 107 meq/L 98-107 lsxk=409) CO2 (BEAKER) (test 21 meq/L 22-29 umpl=309) BLOOD UREA NITROGEN 37 mg/dL 7-21 (BEAKER) (test fpjd=547) CREATININE (BEAKER) (test 1.43 mg/dL 0.57-1.25 zwyf=607) GLUCOSE RANDOM (BEAKER) 180 mg/dL 70-105 (test pcvy=275) CALCIUM (BEAKER) (test 8.4 mg/dL 8.4-10.2 ajtz=072) EGFR (BEAKER) (test 48 mL/min/1.73 sq m ESTIMATED GFR IS NOT twvn=7118) ACCURATE CREATININE CLEARANCE IN PREDICTING GLOMERULAR FILTRATION RATE. ESTIMATED GFR IS NOT APPLICABLE FOR DIALYSIS PATIENTS. POCT-GLUCOSE [id number] 21:33:00 Test Item Value Reference Range Comments POC-GLUCOSE METER (BEAKER) 295 mg/dL 70-110 TESTED AT [address] (test hyun=9350) [place] [id number] POCT-GLUCOSE [id number] 17:47:00 Test Item Value Reference Range Comments POC-GLUCOSE METER (BEAKER) 277 mg/dL 70-110 TESTED AT [address] (test nqeo=3191) [place] [address] RAD, CHEST, 2 [id number] 15:44:00Reason for exam:->dyspneaFINAL REPORT HISTORY : dyspnea. [...] CENTER C013X Ortho Consult Reading Room POCT-GLUCOSE [id number] 11:51:00 Test Item Value Reference Range Comments POC-GLUCOSE METER (BEAKER) 238 mg/dL 70-110 TESTED AT [address] (test ftgz=0828) [facility] [address] POCT-GLUCOSE [id number] 09:54:00 Test Item Value Reference Range Comments POC-GLUCOSE METER (BEAKER) 224 mg/dL 70-[address] [facility] [address] (test ojpj=6650) [facility] [address] CBC W/PLT COUNT & AUTO [id number] 05:34:00 Test Item Value Reference Range Comments WHITE BLOOD CELL COUNT (BEAKER) (test bian=812) 9.4 K/ L 3.5-10.5 RED BLOOD CELL COUNT (BEAKER) (test frrc=162) 4.42 M/ L 4.63-6.08 HEMOGLOBIN (BEAKER) (test swjk=788) 12.1 GM/DL 13.7-17.5 HEMATOCRIT (BEAKER) (test isls=152) 39.0 % 40.1-51.0 MEAN CORPUSCULAR VOLUME (BEAKER) (test tliu=056) 88.2 fL 79.0-92.2 MEAN CORPUSCULAR HEMOGLOBIN (BEAKER) (test 27.4 pg 25.7-32.2 ipps=084) MEAN CORPUSCULAR HEMOGLOBIN CONC (BEAKER) (test 31.0 GM/DL 32.3-36.5 tmvl=031) RED CELL DISTRIBUTION WIDTH (BEAKER) (test 16.5 % 11.6-14.4 mciu=711) PLATELET COUNT (BEAKER) (test oiug=715) 176 K/CU MM 150-450 MEAN PLATELET VOLUME (BEAKER) (test zyex=136) 10.8 fL 9.4-12.4 NUCLEATED RED BLOOD CELLS (BEAKER) (test 0 /100 WBC 0-0 eifs=167) NEUTROPHILS RELATIVE PERCENT (BEAKER) (test 52 % yryh=767) LYMPHOCYTES RELATIVE PERCENT (BEAKER) (test 26 % xnhn=187) MONOCYTES RELATIVE PERCENT (BEAKER) (test 19 % jdjg=674) EOSINOPHILS RELATIVE PERCENT (BEAKER) (test 2 % modz=217) BASOPHILS RELATIVE PERCENT (BEAKER) (test 0 % ihcl=414) NEUTROPHILS ABSOLUTE COUNT (BEAKER) (test 4.91 K/ L 1.78-5.38 xrll=925) LYMPHOCYTES ABSOLUTE COUNT (BEAKER) (test 2.41 K/ L 1.32-3.57 thke=918) MONOCYTES ABSOLUTE COUNT (BEAKER) (test 1.81 K/ L 0.30-0.82 jqqa=455) EOSINOPHILS ABSOLUTE COUNT (BEAKER) (test 0.19 K/ L 0.04-0.54 fhut=225) BASOPHILS ABSOLUTE COUNT (BEAKER) (test 0.02 K/ L 0.01-0.08 yplr=492) IMMATURE GRANULOCYTES-RELATIVE PERCENT (BEAKER) 0 % 0-1 (test qidy=3543) [id number] 05:19:00 Test Item Value Reference Range Comments MAGNESIUM (BEAKER) (test jqpf=433) 1.8 mg/dL 1.6-2.6 BASIC METABOLIC [id number] 05:19:00 Test Item Value Reference Range Comments SODIUM (BEAKER) (test 135 meq/L 136-145 rbux=032) POTASSIUM (BEAKER) (test 3.6 meq/L 3.5-5.1 egun=767) CHLORIDE (BEAKER) (test 105 meq/L 98-107 uczj=286) CO2 (BEAKER) (test 20 meq/L 22-29 cqrs=426) BLOOD UREA NITROGEN 46 mg/dL 7-21 (BEAKER) (test swkc=040) CREATININE (BEAKER) (test 1.61 mg/dL 0.57-1.25 taer=192) GLUCOSE RANDOM (BEAKER) 193 mg/dL 70-105 (test cqsh=799) CALCIUM (BEAKER) (test 8.5 mg/dL 8.4-10.2 umzn=692) EGFR (BEAKER) (test 42 mL/min/1.73 sq m ESTIMATED GFR IS NOT wqgw=9444) ACCURATE CREATININE CLEARANCE IN PREDICTING GLOMERULAR FILTRATION RATE. ESTIMATED GFR IS NOT APPLICABLE FOR DIALYSIS PATIENTS. STREP PNEUMONIAE [id number] 23:56:00 Test Item Value Reference Range Comments STREP PNEUMONIAE ANTIGEN Presumptive negative for Presumptive negative for (BEAKER) (test pneumococcal pneumonia - pneumococcal pneumonia - yjsb=0773) see comment see commen Presumptive negative for pneumococcal pneumonia, suggesting no current or recent pneumococcal infection. Infection due to S. pneumoniae cannot be ruled out since the antigen present in the sample may be below the detection limit of the test.LEGIONELLA ANTIGEN, [id number] 23:54:00 Test Item Value Reference Range Comments L. PNEUMOPHILA SEROGP 1 Negative - see Negative for L. UR AG (BEAKER) (test comment pneumophila serogroup 1 yxoh=4204) antigen, suggesting no recent or current infection with this serogroup. Legionellosis cannot be ruled out since other serogroups and species may cause disease. INFLUENZA A H1N1 [id number] 23:10:00 Test Item Value Reference Range Comments INFLUENZA A RNA (BEAKER) (test Not Detected Not Detected, Inconclusive xtxs=2060) NOVEL H1N1 RNA (BEAKER) (test Not Detected Not Detected, Inconclusive gepg=8612) These assays were performed by real-time RT-PCR (steel pan form placing supervisor-PCR) utilizing fluorogenic hydrolysis probe technology for the detection of human Influenza A viruses and the differential detection of novel H1N1 Influenza virus in respiratory specimens. The test is composed of (1) an RNA extraction from patient specimen, and (2) steel pan form placing supervisor-PCR amplification and detection with human Influenza A and novel A3S4-sfmfolpc primers and probes. A well-conserved region of [...] and its performance characteristics determined by the [facility] Pathology Department, Section of Molecular Pathology. It has not been cleared or approved by the U.S. Food and Drug Administration (FDA). SinceFDA approval is not required for clinical use of the test, validation was done as required by The Clinical Laboratory Amendments of 1988.These assays were performed by real-time RT-PCR (steel pan form placing supervisor-PCR) utilizing fluorogenic hydrolysis probe technology for the detection of human Influenza A viruses and the differential detection of novel H1N1 Influenza virus in respiratory specimens. The test is composed of (1) an RNA extraction from patient specimen, and (2) steel pan form placing supervisor-PCR amplification and detection with human Influenza A and novel B3T7-uzbycdot primers and probes. A well-conserved region of [...] and its performance characteristics determined by the [facility] Pathology Department, Section of Molecular Pathology. It has not been cleared or approved by the U.S. Food and Drug Administration ( FDA). Since FDA approval is not required for clinical use of the test, validation was done as required by The Clinical Laboratory Amendments of 1988.POCT-GLUCOSE [id number] 23:03:00 Test Item Value Reference Range Comments POC-GLUCOSE METER (BEAKER) 233 mg/dL 70-[address] [facility] [address] [facility] (test kcux=0380) [facility] [address] U/S, RENAL, [id number] 22:23:00Reason for exam:->akiFINAL REPORT U/S, RENAL, COMPLETE [...] MDReport Verified Date/Time: 01/30/2017 22:23:06 Reading Location: [address] Ortho Consult Reading Room Electronically signed by: SARIAH BARRIOS MD on 2016 10:23 PMSODIUM, RANDOM [id number] 20:40:00 Test Item Value Reference Range Comments SODIUM URINE (BEAKER) (test cbjq=629) < meq/L Reference Range: No NormalsEOSINOPHIL SMEAR, [id number] 20:40:00 Test Item Value Reference Range Comments EOSINOPHIL SMEAR, URINE (BEAKER) (test No EOS seen No EOS seen ujtm=2009) CREATININE, RANDOM [id number] 20:24:00 Test Item Value Reference Range Comments CREATININE URINE (BEAKER) (test gcan=625) 113.2 mg/dL Reference Range: No NormalsMICROALBUMIN, RANDOM [id number] 20:24:00 Test Item Value Reference Range Comments MICROALBUMIN URINE (BEAKER) (test layi=1404) 4.2 mg/dL Reference Range: No NormalsURINALYSIS W/ [id number] 20:14:00 Test Item Value Reference Range Comments COLOR (BEAKER) (test djbn=982) Yellow CLARITY (BEAKER) (test mpot=492) Hazy SPECIFIC GRAVITY UA (BEAKER) (test gvls=451) 1.013 1.001-1.035 PH UA (BEAKER) (test stth=891) 5.0 5.0-8.0 PROTEIN UA (BEAKER) (test dpun=787) 20 mg/dL Negative GLUCOSE UA (BEAKER) (test oszv=990) 30 mg/dL Negative KETONES UA (BEAKER) (test imqo=811) Negative Negative BILIRUBIN UA (BEAKER) (test tatp=816) Negative Negative BLOOD UA (BEAKER) (test gfmy=126) Negative Negative NITRITE UA (BEAKER) (test nlah=634) Negative Negative LEUKOCYTE ESTERASE UA (BEAKER) (test vaxh=351) Moderate Negative UROBILINOGEN UA (BEAKER) (test mzpo=692) 0.2 mg/dL 0.2-1.0 RBC UA (BEAKER) (test fomf=964) 1 /HPF WBC UA (BEAKER) (test fhoc=315) 5 /HPF MUCUS (BEAKER) (test svgi=6580) Rare SQUAMOUS EPITHELIAL (BEAKER) (test gttk=198) 1 /HPF SOURCE(BEAKER) (test bjtx=4846) Urine, Voided POCT-GLUCOSE [id number] 18:25:00 Test Item Value Reference Range Comments POC-GLUCOSE METER (BEAKER) 230 mg/dL 70-110 TESTED AT [address] (test yrdm=0515) [facility] [address] POCT-GLUCOSE [id number] 13:49:00 Test Item Value Reference Range Comments POC-GLUCOSE METER (BEAKER) 267 mg/dL 70-110 TESTED AT [address] (test gpme=1170) [facility] [address] HEMOGLOBIN [id number] 11:50:00 Test Item Value Reference Range Comments HEMOGLOBIN A1C (BEAKER) (test alhi=851) 10.7 % 4.3-6.1 TROPONIN [id number] 11:42:00 Test Item Value Reference Range Comments TROPONIN I (BEAKER) (test ltwp=291) 0.02 ng/mL 0.00-0.03 Troponin I (TnI) levels [...] acidosis, acute neurological disease, and persistent tachyarrhythmia.POCT-GLUCOSE [id number] 09:41:00 Test Item Value Reference Range Comments POC-GLUCOSE METER (BEAKER) 228 mg/dL 70-[address] [facility] [address] [facility] (test bvpz=8045) [facility] [address] RAD, CHEST, 1 VIEW, NON [id number] 07:41:00Reason for exam:->eval pneumoniaShould this be performed [...] represent atelectasis or pneumonitis. Signed: Zuleima Graff [facility] Verified Date/Time: 01/30/2017 07:41:41 ReadingLocation: [facility] B1 C013T Transitional Reading Room [id number] 02:54:00 Test Item Value Reference Range Comments MAGNESIUM (BEAKER) (test iodk=349) 1.6 mg/dL 1.6-2.6 BASIC METABOLIC [id number] 02:54:00 Test Item Value Reference Range Comments SODIUM (BEAKER) (test 137 meq/L 136-145 tbkc=182) POTASSIUM (BEAKER) (test 3.8 meq/L 3.5-5.1 bfly=902) CHLORIDE (BEAKER) (test 104 meq/L 98-107 ogkr=141) CO2 (BEAKER) (test 19 meq/L 22-29 gvat=388) BLOOD UREA NITROGEN 48 mg/dL 7-21 (BEAKER) (test sluh=180) CREATININE (BEAKER) (test 1.76 mg/dL 0.57-1.25 muew=113) GLUCOSE RANDOM (BEAKER) 217 mg/dL 70-105 (test edbr=786) CALCIUM (BEAKER) (test 8.9 mg/dL 8.4-10.2 fvxf=406) EGFR (BEAKER) (test 38 mL/min/1.73 sq m ESTIMATED GFR IS NOT nwuc=7275) ACCURATE CREATININE CLEARANCE IN PREDICTING GLOMERULAR FILTRATION RATE. ESTIMATED GFR IS NOT APPLICABLE FOR DIALYSIS PATIENTS. RAPID INFLUENZA A&B [id number] 02:41:00 Test Item Value Reference Range Comments RAPID INFLUENZA A AG (BEAKER) (test Negative Negative, Inconclusive jyie=2836) RAPID INFLUENZA B AG (BEAKER) (test Negative Negative, Inconclusive xokv=9762) CBC W/PLT COUNT & AUTO [id number] 02:07:00 Test Item Value Reference Range Comments WHITE BLOOD CELL COUNT (BEAKER) (test bcgo=601) 10.6 K/ L 3.5-10.5 RED BLOOD CELL COUNT (BEAKER) (test rxkm=531) 4.75 M/ L 4.63-6.08 HEMOGLOBIN (BEAKER) (test vckb=942) 13.2 GM/DL 13.7-17.5 HEMATOCRIT (BEAKER) (test zihe=787) 42.4 % 40.1-51.0 MEAN CORPUSCULAR VOLUME (BEAKER) (test lgoa=468) 89.3 fL 79.0-92.2 MEAN CORPUSCULAR HEMOGLOBIN (BEAKER) (test 27.8 pg 25.7-32.2 wmmy=102) MEAN CORPUSCULAR HEMOGLOBIN CONC (BEAKER) (test 31.1 GM/DL 32.3-36.5 klvd=977) RED CELL DISTRIBUTION WIDTH (BEAKER) (test 16.8 % 11.6-14.4 zlve=992) PLATELET COUNT (BEAKER) (test tlit=443) 202 K/CU MM 150-450 MEAN PLATELET VOLUME (BEAKER) (test trdq=720) 10.7 fL 9.4-12.4 NUCLEATED RED BLOOD CELLS (BEAKER) (test 0 /100 WBC 0-0 ocsu=640) NEUTROPHILS RELATIVE PERCENT (BEAKER) (test 63 % qubu=997) LYMPHOCYTES RELATIVE PERCENT (BEAKER) (test 17 % uvjy=982) MONOCYTES RELATIVE PERCENT (BEAKER) (test 18 % auzf=382) EOSINOPHILS RELATIVE PERCENT (BEAKER) (test 1 % rdmy=494) BASOPHILS RELATIVE PERCENT (BEAKER) (test 0 % arrf=361) NEUTROPHILS ABSOLUTE COUNT (BEAKER) (test 6.60 K/ L 1.78-5.38 bmez=786) LYMPHOCYTES ABSOLUTE COUNT (BEAKER) (test 1.82 K/ L 1.32-3.57 kgvd=662) MONOCYTES ABSOLUTE COUNT (BEAKER) (test 1.94 K/ L 0.30-0.82 xkxq=897) EOSINOPHILS ABSOLUTE COUNT (BEAKER) (test 0.10 K/ L 0.04-0.54 luvq=962) BASOPHILS ABSOLUTE COUNT (BEAKER) (test 0.02 K/ L 0.01-0.08 gkyv=924) IMMATURE GRANULOCYTES-RELATIVE PERCENT (BEAKER) 1 % 0-1 (test vmjk=5821) POCT-GLUCOSE [id number] 23:18:00 Test Item Value Reference Range Comments POC-GLUCOSE METER (BEAKER) 230 mg/dL 70-[address] [facility] [address] [facility] (test ocxc=7894) [facility] [address]
[2017-12-21] MEDS ORDERED: NA CHLORIDE 0.9% 1,000 ML ONE (10:12)
[2017-12-21 10:15] VITALS: O2SAT 99
[2017-12-21] MEDS ORDERED: LIDOCAINE 1% MPF 5 ML VIAL ONE (11:43)
[2017-12-21] MEDS ORDERED: PROPOFOL 200 MG/20 ML VIAL IV ONE (11:43)
[2017-12-21] MEDS ORDERED: GENTAMICIN SULF 80 MG/2ML INJ ONE (11:46)
--- NOTE | 2017-12-21 12:44 | RAD REPORT ---
EXAM DESCRIPTION: Fluoroscopy for ERCP CLINICAL HISTORY: ERCP IN ENDOSCOPY Abdominal pain FINDINGS: Fluoroscopic images submitted from ERCP procedure. Details and diagnostic findings of the procedure are not available. Total fluoroscopy time: 63 seconds.
[2017-12-21 13:21] LABS: Potassium 4.3 mmol/L (3.5-5.1)
[2017-12-21 13:22] VITALS: BP 117/76; TEMP 97.6
== END 2017-12-21 13:30 | disposition home or self-care (01) ==
LOC: OR 09:06
PROVIDERS: ATTEND Internal Medicine Gastroenterology
PROC: 0FPB8DZ Removal of Intraluminal Device from Hepatobiliary Duct, Via Natural or Artificial Opening Endoscopic (ICD-10-PCS; principal; 2017-12-21 12:30)
DX: Z46.59 Encounter for fitting and adjustment of other gastrointestinal appliance and device (principal); E11.9 Type 2 diabetes mellitus without complications; I11.0 Hypertensive heart disease with heart failure; I50.9 Heart failure, unspecified; I48.91 Unspecified atrial fibrillation; F41.9 Anxiety disorder, unspecified; Z95.0 Presence of cardiac pacemaker; Z86.73 Personal history of transient ischemic attack (TIA), and cerebral infarction without residual deficits
CPT/HCPCS: 36415; 43275; 80048; 82962; J1580; J2704; J7030

== ENCOUNTER 2018-05-25 15:36 | Emergency (ER) | payer OTHER ==
--- OUTSIDE RECORDS SUMMARY | 2018-05-25 15:43 | XMS REPORT | Clinical Summary ---
:1945 Author Organization [facility] Address [address] [place] [address] Care Team Providers Name Role Phone Unavailable Primary Care Provider Unavailable Allergies No Known Allergies Medications Medication Sig Dispensed Refills Start Date End Date Status potassium chloride SA Take 1 tablet (20 30 tablet 0 02/08/2017 Active (K-DUR,KLOR-CON) 20 mEq total) by MEQ tablet mouth daily. glipiZIDE (GLUCOTROL) Take 1 tablet (10 0 02/08/2017 Active 10 MG tablet mg total) by mouth 2 (two) times daily before meals. 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 Atrial fibrillation 01/30/2017 DARRELL (acute kidney injury) 01/30/2017 Pneumonia 01/29/2017 Family History Medical History Relation Name Comments Cancer Brother Diabetes Brother Hypertension Brother Heart disease Mother Hypertension Sister Relation Name Status Comments Brother Mother Sister Social History Tobacco Use Types Packs/Day Years Used Date Former Smoker Smokeless Tobacco: Never Used Alcohol Use Drinks/Week oz/Week Comments No Sex Assigned at Date Recorded Not on file Job Start Date Occupation Industry Not on file Not on file Not on file Travel History Travel Start Travel End No recent travel history available. Last Filed Vital Signs Not on file Plan of Treatment Not on file Results Not on fileafter 05/24/2017 Insurance Payer Benefit Plan / Group Subscriber ID Type Phone Address [employer] xxxxxxxx Maps Contracted (Home) [place] [address] Advance Directives For more information, please contact:[address] [phone] Code Status Date Activated Date Inactivated Comments Full Code 01/29/2017 11:40 PM 02/08/2017 6:18 PM This code status was determined by: Patient
--- OUTSIDE RECORDS SUMMARY | 2018-05-25 15:45 | XMS REPORT ---
:1945 Author Organization [facility] Address [address] [place] [address] [address] [place] [address] Care Team Providers Name Role Phone ABIEL [...] (BEAKER) (test 270 mg/dL 70-110 TESTED AT [address] cqbr=8320) [facility] [address] POCT-GLUCOSE [id number] 08:58:00 Test Item Value Reference Range Comments POC-GLUCOSE METER (BEAKER) 147 mg/dL 70-110 TESTED AT [address] (test ruzi=9132) [facility] [address] CBC W/PLT COUNT & AUTO [id number] 08:53:00 Test Item Value Reference Range Comments WHITE BLOOD CELL COUNT (BEAKER) (test gzof=842) 5.6 K/ L 3.5-10.5 RED BLOOD CELL COUNT (BEAKER) (test oven=144) 4.28 M/ L 4.63-6.08 HEMOGLOBIN (BEAKER) (test egxd=273) 11.7 GM/DL 13.7-17.5 HEMATOCRIT (BEAKER) (test nrog=098) 37.4 % 40.1-51.0 MEAN CORPUSCULAR VOLUME (BEAKER) (test rjwv=939) 87.4 fL 79.0-92.2 MEAN CORPUSCULAR HEMOGLOBIN (BEAKER) (test 27.3 pg 25.7-32.2 ymwg=985) MEAN CORPUSCULAR HEMOGLOBIN CONC (BEAKER) (test 31.3 GM/DL 32.3-36.5 fgxs=633) RED CELL DISTRIBUTION WIDTH (BEAKER) (test 16.2 % 11.6-14.4 usqs=511) PLATELET COUNT (BEAKER) (test byzn=872) 100 K/CU MM 150-450 MEAN PLATELET VOLUME (BEAKER) (test whmv=199) 10.7 fL 9.4-12.4 NUCLEATED RED BLOOD CELLS (BEAKER) (test 0 /100 WBC 0-0 yvzy=090) NEUTROPHILS RELATIVE PERCENT (BEAKER) (test 50 % ykdj=586) LYMPHOCYTES RELATIVE PERCENT (BEAKER) (test 30 % afir=554) MONOCYTES RELATIVE PERCENT (BEAKER) (test 18 % nmlx=462) EOSINOPHILS RELATIVE PERCENT (BEAKER) (test 2 % pbdf=808) BASOPHILS RELATIVE PERCENT (BEAKER) (test 1 % amzm=800) NEUTROPHILS ABSOLUTE COUNT (BEAKER) (test 2.77 K/ L 1.78-5.38 fppi=453) LYMPHOCYTES ABSOLUTE COUNT (BEAKER) (test 1.66 K/ L 1.32-3.57 ufmd=151) MONOCYTES ABSOLUTE COUNT (BEAKER) (test 1.02 K/ L 0.30-0.82 gmby=137) EOSINOPHILS ABSOLUTE COUNT (BEAKER) (test 0.09 K/ L 0.04-0.54 cmkp=767) BASOPHILS ABSOLUTE COUNT (BEAKER) (test 0.03 K/ L 0.01-0.08 bngk=141) IMMATURE GRANULOCYTES-RELATIVE PERCENT (BEAKER) 0 % 0-1 (test pqkm=3653) [id number] 08:05:00 Test Item Value Reference Range Comments MAGNESIUM (BEAKER) (test lisy=715) 1.5 mg/dL 1.6-2.6 BASIC METABOLIC [id number] 08:05:00 Test Item Value Reference Range Comments SODIUM (BEAKER) (test 137 meq/L 136-145 znhz=780) POTASSIUM (BEAKER) (test 3.3 meq/L 3.5-5.1 akns=550) CHLORIDE (BEAKER) (test 98 meq/L 98-107 xlwf=452) CO2 (BEAKER) (test 27 meq/L 22-29 troe=417) BLOOD UREA NITROGEN 30 mg/dL 7-21 (BEAKER) (test qyfj=114) CREATININE (BEAKER) (test 1.59 mg/dL 0.57-1.25 uwks=671) GLUCOSE RANDOM (BEAKER) 116 mg/dL 70-105 (test amsg=590) CALCIUM (BEAKER) (test 9.0 mg/dL 8.4-10.2 ukia=484) EGFR (BEAKER) (test 43 mL/min/1.73 sq m ESTIMATED GFR IS NOT xeje=9295) ACCURATE CREATININE CLEARANCE IN PREDICTING GLOMERULAR FILTRATION RATE. ESTIMATED GFR IS NOT APPLICABLE FOR DIALYSIS PATIENTS. POCT-GLUCOSE [id number] 21:57:00 Test Item Value Reference Range Comments POC-GLUCOSE METER (BEAKER) 219 mg/dL 70-110 TESTED AT [address] (test mczc=2472) [facility] [address] POCT-GLUCOSE [id number] 17:24:00 Test Item Value Reference Range Comments POC-GLUCOSE METER (BEAKER) 247 mg/dL 70-110 TESTED AT [address] (test ahjj=1208) [facility] [address] CBC W/PLT COUNT & AUTO [id number] 13:56:00 Test Item Value Reference Range Comments WHITE BLOOD CELL COUNT (BEAKER) (test fhqu=502) 6.4 K/ L 3.5-10.5 RED BLOOD CELL COUNT (BEAKER) (test rxow=368) 4.04 M/ L 4.63-6.08 HEMOGLOBIN (BEAKER) (test scbq=870) 10.9 GM/DL 13.7-17.5 HEMATOCRIT (BEAKER) (test cguz=218) 35.4 % 40.1-51.0 MEAN CORPUSCULAR VOLUME (BEAKER) (test ayfk=107) 87.6 fL 79.0-92.2 MEAN CORPUSCULAR HEMOGLOBIN (BEAKER) (test 27.0 pg 25.7-32.2 eufv=191) MEAN CORPUSCULAR HEMOGLOBIN CONC (BEAKER) (test 30.8 GM/DL 32.3-36.5 ogfh=290) RED CELL DISTRIBUTION WIDTH (BEAKER) (test 16.1 % 11.6-14.4 ledr=767) PLATELET COUNT (BEAKER) (test godi=260) 98 K/CU MM 150-450 MEAN PLATELET VOLUME (BEAKER) (test guwt=312) 10.5 fL 9.4-12.4 NUCLEATED RED BLOOD CELLS (BEAKER) (test 0 /100 WBC 0-0 tuty=040) IMMATURE GRANULOCYTES-RELATIVE PERCENT (BEAKER) 0 % 0-1 (test rczq=5026) (MANUAL DIFFERENTIAL)2017-02-07 13:56:00 Test Item Value Reference Range Comments NEUTROPHILS - REL (DIFF) (BEAKER) (test mbjm=6009) 52 % LYMPHOCYTES - REL (DIFF) (BEAKER) (test gyvh=5921) 26 % MONOCYTES - REL (DIFF) (BEAKER) (test vepw=8483) 14 % EOSINOPHILS - REL (DIFF) (BEAKER) (test dkgl=1282) 6 % BASOPHILS - REL (DIFF) (BEAKER) (test ivzc=6647) 0 % BANDS - REL (DIFF) (BEAKER) (test qerk=8565) 1 % 0-10 ATYPICAL LYMPHOCYTE - REL (DIFF) (BEAKER) (test 1 % 0-0 hlpx=399) NEUTROPHILS - ABS (DIFF) (BEAKER) (test xooi=4414) 3.33 K/ L 1.80-8.00 LYMPHOCYTES - ABS (DIFF) (BEAKER) (test blab=7458) 1.66 K/ L 1.48-4.50 MONOCYTES - ABS (DIFF) (BEAKER) (test bptx=4506) 0.90 K/ L 0.00-1.30 EOSINOPHILS - ABS (DIFF) (BEAKER) (test wazk=8141) 0.38 K/ L 0.00-0.50 BASOPHILS - ABS (DIFF) (BEAKER) (test ixce=8674) 0.00 K/ L 0.00-0.20 BANDS-ABS (DIFF) (BEAKER) (test wmws=6644) 0.1 K/ L 0.0-0.8 ATYPICAL LYMPHOCYTES - ABS (DIFF) (BEAKER) (test 0.06 K/ L 0.00-0.00 kiru=772) TOTAL COUNTED (BEAKER) (test fpsz=8046) 100 BANDS + SEGMENTED NEUTROPHILS (BEAKER) (test 3.39 qelr=7169) WBC MORPHOLOGY (BEAKER) (test ivts=688) Normal PLT MORPHOLOGY (BEAKER) (test apji=641) Normal RBC MORPHOLOGY (BEAKER) (test fmqh=432) Normal POCT-GLUCOSE [id number] 13:22:00 Test Item Value Reference Range Comments POC-GLUCOSE METER (BEAKER) 226 mg/dL 70-110 TESTED AT [address] (test kwck=9006) [place] [id number] POCT-GLUCOSE [id number] 07:59:00 Test Item Value Reference Range Comments POC-GLUCOSE METER (BEAKER) 216 mg/dL 70-110 TESTED AT [address] (test zdqg=9850) [place] [address] [id number] 05:18:00 Test Item Value Reference Range Comments MAGNESIUM (BEAKER) (test xneo=178) 1.7 mg/dL 1.6-2.6 BASIC METABOLIC [id number] 05:18:00 Test Item Value Reference Range Comments SODIUM (BEAKER) (test 136 meq/L 136-145 axqv=015) POTASSIUM (BEAKER) (test 3.4 meq/L 3.5-5.1 vmbu=576) CHLORIDE (BEAKER) (test 101 meq/L 98-107 qdex=545) CO2 (BEAKER) (test 26 meq/L 22-29 ynar=449) BLOOD UREA NITROGEN 25 mg/dL 7-21 (BEAKER) (test ecox=336) CREATININE (BEAKER) (test 1.50 mg/dL 0.57-1.25 ykla=374) GLUCOSE RANDOM (BEAKER) 216 mg/dL 70-105 (test ojnu=036) CALCIUM (BEAKER) (test 8.5 mg/dL 8.4-10.2 ohre=370) EGFR (BEAKER) (test 46 mL/min/1.73 sq m ESTIMATED GFR IS NOT tott=7930) ACCURATE CREATININE CLEARANCE IN PREDICTING GLOMERULAR FILTRATION RATE. ESTIMATED GFR IS NOT APPLICABLE FOR DIALYSIS PATIENTS. POCT-GLUCOSE [id number] 20:58:00 Test Item Value Reference Range Comments POC-GLUCOSE METER (BEAKER) 260 mg/dL 70-110 TESTED AT [address] (test ghau=8825) [place] [address] POCT-GLUCOSE [id number] 17:32:00 Test Item Value Reference Range Comments POC-GLUCOSE METER (BEAKER) 237 mg/dL 70-110 TESTED AT [address] (test swpu=6077) [place] [address] POCT-GLUCOSE [id number] 16:21:00 Test Item Value Reference Range Comments POC-GLUCOSE METER (BEAKER) 223 mg/dL 70-110 TESTED AT [facility] [address] [facility] (test swec=3589) [facility] [address] CBC W/PLT COUNT & AUTO [id number] 14:22:00 Test Item Value Reference Range Comments WHITE BLOOD CELL COUNT (BEAKER) (test fbjq=840) 6.5 K/ L 3.5-10.5 RED BLOOD CELL COUNT (BEAKER) (test rsiw=111) 4.17 M/ L 4.63-6.08 HEMOGLOBIN (BEAKER) (test sflk=302) 11.3 GM/DL 13.7-17.5 HEMATOCRIT (BEAKER) (test gixl=178) 36.8 % 40.1-51.0 MEAN CORPUSCULAR VOLUME (BEAKER) (test mfed=199) 88.2 fL 79.0-92.2 MEAN CORPUSCULAR HEMOGLOBIN (BEAKER) (test 27.1 pg 25.7-32.2 wfvp=827) MEAN CORPUSCULAR HEMOGLOBIN CONC (BEAKER) (test 30.7 GM/DL 32.3-36.5 detg=601) RED CELL DISTRIBUTION WIDTH (BEAKER) (test 16.1 % 11.6-14.4 imso=310) PLATELET COUNT (BEAKER) (test qmez=233) 116 K/CU MM 150-450 MEAN PLATELET VOLUME (BEAKER) (test obrm=901) 10.7 fL 9.4-12.4 NUCLEATED RED BLOOD CELLS (BEAKER) (test 0 /100 WBC 0-0 xfoa=165) NEUTROPHILS RELATIVE PERCENT (BEAKER) (test 48 % hxjs=982) LYMPHOCYTES RELATIVE PERCENT (BEAKER) (test 30 % hqcz=413) MONOCYTES RELATIVE PERCENT (BEAKER) (test 20 % shsh=800) EOSINOPHILS RELATIVE PERCENT (BEAKER) (test 1 % hxdp=826) BASOPHILS RELATIVE PERCENT (BEAKER) (test 0 % yflv=983) NEUTROPHILS ABSOLUTE COUNT (BEAKER) (test 3.09 K/ L 1.78-5.38 iqbp=891) LYMPHOCYTES ABSOLUTE COUNT (BEAKER) (test 1.95 K/ L 1.32-3.57 ezjf=545) MONOCYTES ABSOLUTE COUNT (BEAKER) (test 1.32 K/ L 0.30-0.82 vmjf=837) EOSINOPHILS ABSOLUTE COUNT (BEAKER) (test 0.07 K/ L 0.04-0.54 sbfm=670) BASOPHILS ABSOLUTE COUNT (BEAKER) (test 0.02 K/ L 0.01-0.08 dwdr=805) IMMATURE GRANULOCYTES-RELATIVE PERCENT (BEAKER) 0 % 0-1 (test aluu=0946) (MANUAL DIFFERENTIAL)2017-02-06 14:22:00 Test Item Value Reference Range Comments TOTAL COUNTED (BEAKER) (test zwfz=6167) WBC MORPHOLOGY (BEAKER) (test cbpi=286) Normal PLT MORPHOLOGY (BEAKER) (test snar=403) Normal RBC MORPHOLOGY (BEAKER) (test tgwh=189) Normal POCT-GLUCOSE [id number] 11:52:00 Test Item Value Reference Range Comments POC-GLUCOSE METER (BEAKER) 143 mg/dL 70-110 TESTED AT [address] (test ctbg=8438) [place] [id number] POCT-GLUCOSE [id number] 08:04:00 Test Item Value Reference Range Comments POC-GLUCOSE METER (BEAKER) 86 mg/dL 70-110 TESTED AT [address] (test qmym=2581) [place] [address] [id number] 06:07:00 Test Item Value Reference Range Comments MAGNESIUM (BEAKER) (test 1.6 mg/dL 1.6-2.6 Specimen slightly hemolyzed suuf=510) BASIC METABOLIC [id number] 06:07:00 Test Item Value Reference Range Comments SODIUM (BEAKER) (test 135 meq/L 136-145 fudd=380) POTASSIUM (BEAKER) (test 3.7 meq/L 3.5-5.1 Specimen slightly orur=521) hemolyzed CHLORIDE (BEAKER) (test 104 meq/L 98-107 xndn=456) CO2 (BEAKER) (test 22 meq/L 22-29 zcum=038) BLOOD UREA NITROGEN 27 mg/dL 7-21 (BEAKER) (test zrxd=559) CREATININE (BEAKER) (test 1.32 mg/dL 0.57-1.25 Specimen slightly umvk=734) hemolyzed GLUCOSE RANDOM (BEAKER) 103 mg/dL 70-105 (test fqme=017) CALCIUM (BEAKER) (test 8.4 mg/dL 8.4-10.2 vwlh=437) EGFR (BEAKER) (test 53 mL/min/1.73 sq m ESTIMATED GFR IS NOT rnyo=9939) ACCURATE CREATININE CLEARANCE IN PREDICTING GLOMERULAR FILTRATION RATE. ESTIMATED GFR IS NOT APPLICABLE FOR DIALYSIS PATIENTS. POCT-GLUCOSE [id number] 20:42:00 Test Item Value Reference Range Comments POC-GLUCOSE METER (BEAKER) 338 mg/dL 70-110 TESTED AT [facility] [address] [facility] (test mlju=0011) [facility] [address] POCT-GLUCOSE [id number] 17:41:00 Test Item Value Reference Range Comments POC-GLUCOSE METER (BEAKER) 303 mg/dL 70-110 TESTED AT [address] (test cpbl=9308) [facility] [address] RAD, CHEST, 1 VIEW, NON [id number] 14:44:00Reason for exam:->shortness of breath s/p RHCShould this be performed at the bedside?->YesFINAL REPORT CLINICAL HISTORY: shortness of breath s/p RHC TECHNIQUE : 1 viewof the chest. COMPARISON: 01/31/2017 IMPRESSION: Trace bilateral pleural effusions are again seen with left basilar atelectasis. The cardiomediastinal silhouette is magnified by technique with a pacemaker. Signed : Barbara Espinoza MDReport Verified Date/Time: 02/05/2017 14:44:20 Reading Location: [address] Consult Reading Room CBC W/PLT COUNT & AUTO [id number] 14:37:00 Test Item Value Reference Range Comments WHITE BLOOD CELL COUNT (BEAKER) (test jkpl=760) 7.1 K/ L 3.5-10.5 RED BLOOD CELL COUNT (BEAKER) (test woer=460) 4.34 M/ L 4.63-6.08 HEMOGLOBIN (BEAKER) (test jevc=078) 11.8 GM/DL 13.7-17.5 HEMATOCRIT (BEAKER) (test tzcx=597) 38.1 % 40.1-51.0 MEAN CORPUSCULAR VOLUME (BEAKER) (test bfnc=437) 87.8 fL 79.0-92.2 MEAN CORPUSCULAR HEMOGLOBIN (BEAKER) (test 27.2 pg 25.7-32.2 rvuk=596) MEAN CORPUSCULAR HEMOGLOBIN CONC (BEAKER) (test 31.0 GM/DL 32.3-36.5 fuwz=608) RED CELL DISTRIBUTION WIDTH (BEAKER) (test 16.1 % 11.6-14.4 btoh=688) PLATELET COUNT (BEAKER) (test jczo=012) 112 K/CU MM 150-450 MEAN PLATELET VOLUME (BEAKER) (test obih=264) 10.6 fL 9.4-12.4 NUCLEATED RED BLOOD CELLS (BEAKER) (test 0 /100 WBC 0-0 gsms=731) NEUTROPHILS RELATIVE PERCENT (BEAKER) (test 55 % xmne=127) LYMPHOCYTES RELATIVE PERCENT (BEAKER) (test 20 % isgu=178) MONOCYTES RELATIVE PERCENT (BEAKER) (test 23 % etjx=160) EOSINOPHILS RELATIVE PERCENT (BEAKER) (test 1 % hjbv=576) BASOPHILS RELATIVE PERCENT (BEAKER) (test 0 % nhhk=035) NEUTROPHILS ABSOLUTE COUNT (BEAKER) (test 3.91 K/ L 1.78-5.38 jpuq=441) LYMPHOCYTES ABSOLUTE COUNT (BEAKER) (test 1.43 K/ L 1.32-3.57 fkha=484) MONOCYTES ABSOLUTE COUNT (BEAKER) (test 1.67 K/ L 0.30-0.82 tifg=080) EOSINOPHILS ABSOLUTE COUNT (BEAKER) (test 0.08 K/ L 0.04-0.54 mrul=105) BASOPHILS ABSOLUTE COUNT (BEAKER) (test 0.03 K/ L 0.01-0.08 azyo=610) IMMATURE GRANULOCYTES-RELATIVE PERCENT (BEAKER) 0 % 0-1 (test umfh=4498) (MANUAL DIFFERENTIAL)2017-02-05 14:37:00 Test Item Value Reference Range Comments TOTAL COUNTED (BEAKER) (test ggcu=8716) WBC MORPHOLOGY (BEAKER) (test mkau=268) Normal PLT MORPHOLOGY (BEAKER) (test ecpj=346) Normal RBC MORPHOLOGY (BEAKER) (test kdhe=598) Normal POCT-GLUCOSE [id number] 12:08:00 Test Item Value Reference Range Comments POC-GLUCOSE METER (BEAKER) 197 mg/dL 70-110 TESTED AT [address] (test cwax=5649) [facility] [address] POCT-GLUCOSE [id number] 07:55:00 Test Item Value Reference Range Comments POC-GLUCOSE METER (BEAKER) 149 mg/dL 70-110 TESTED AT [address] (test bmtp=8263) [place] [address] [id number] 05:21:00 Test Item Value Reference Range Comments MAGNESIUM (BEAKER) (test diix=161) 1.4 mg/dL 1.6-2.6 BASIC METABOLIC [id number] 05:21:00 Test Item Value Reference Range Comments SODIUM (BEAKER) (test 139 meq/L 136-145 xifi=010) POTASSIUM (BEAKER) (test 3.7 meq/L 3.5-5.1 xnyg=390) CHLORIDE (BEAKER) (test 107 meq/L 98-107 spca=383) CO2 (BEAKER) (test 23 meq/L 22-29 fhpc=110) BLOOD UREA NITROGEN 24 mg/dL 7-21 (BEAKER) (test ebah=003) CREATININE (BEAKER) (test 1.31 mg/dL 0.57-1.25 cxze=590) GLUCOSE RANDOM (BEAKER) 155 mg/dL 70-105 (test ueyz=682) CALCIUM (BEAKER) (test 8.5 mg/dL 8.4-10.2 tezx=155) EGFR (BEAKER) (test 54 mL/min/1.73 sq m ESTIMATED GFR IS NOT govm=8790) ACCURATE CREATININE CLEARANCE IN PREDICTING GLOMERULAR FILTRATION RATE. ESTIMATED GFR IS NOT APPLICABLE FOR DIALYSIS PATIENTS. POCT-GLUCOSE [id number] 21:03:00 Test Item Value Reference Range Comments POC-GLUCOSE METER (BEAKER) 296 mg/dL 70-110 TESTED AT [address] (test ppww=6928) [facility] [address] POCT-GLUCOSE [id number] 17:18:00 Test Item Value Reference Range Comments POC-GLUCOSE METER (BEAKER) 275 mg/dL 70-110 TESTED AT [address] (test sfqc=4423) [facility] [address] CBC W/PLT COUNT & AUTO [id number] 15:04:00 Test Item Value Reference Range Comments WHITE BLOOD CELL COUNT (BEAKER) (test qoob=774) 7.2 K/ L 3.5-10.5 RED BLOOD CELL COUNT (BEAKER) (test nrjm=489) 4.24 M/ L 4.63-6.08 HEMOGLOBIN (BEAKER) (test zaax=171) 11.5 GM/DL 13.7-17.5 HEMATOCRIT (BEAKER) (test vwwt=751) 37.6 % 40.1-51.0 MEAN CORPUSCULAR VOLUME (BEAKER) (test ohnk=804) 88.7 fL 79.0-92.2 MEAN CORPUSCULAR HEMOGLOBIN (BEAKER) (test 27.1 pg 25.7-32.2 rmzr=605) MEAN CORPUSCULAR HEMOGLOBIN CONC (BEAKER) (test 30.6 GM/DL 32.3-36.5 skts=105) RED CELL DISTRIBUTION WIDTH (BEAKER) (test 16.3 % 11.6-14.4 onsb=311) PLATELET COUNT (BEAKER) (test fdeq=853) 116 K/CU MM 150-450 MEAN PLATELET VOLUME (BEAKER) (test sigo=477) 10.6 fL 9.4-12.4 NUCLEATED RED BLOOD CELLS (BEAKER) (test 0 /100 WBC 0-0 adys=119) NEUTROPHILS RELATIVE PERCENT (BEAKER) (test 51 % iacb=541) LYMPHOCYTES RELATIVE PERCENT (BEAKER) (test 22 % auzx=291) MONOCYTES RELATIVE PERCENT (BEAKER) (test 24 % mkfn=880) EOSINOPHILS RELATIVE PERCENT (BEAKER) (test 1 % sbag=138) BASOPHILS RELATIVE PERCENT (BEAKER) (test 0 % slfo=484) NEUTROPHILS ABSOLUTE COUNT (BEAKER) (test 3.71 K/ L 1.78-5.38 knai=836) LYMPHOCYTES ABSOLUTE COUNT (BEAKER) (test 1.62 K/ L 1.32-3.57 gzfo=505) MONOCYTES ABSOLUTE COUNT (BEAKER) (test 1.74 K/ L 0.30-0.82 hwwa=217) EOSINOPHILS ABSOLUTE COUNT (BEAKER) (test 0.08 K/ L 0.04-0.54 xpbt=741) BASOPHILS ABSOLUTE COUNT (BEAKER) (test 0.03 K/ L 0.01-0.08 ymhp=970) IMMATURE GRANULOCYTES-RELATIVE PERCENT (BEAKER) 1 % 0-1 (test diop=0749) (MANUAL DIFFERENTIAL)2017-02-04 15:04:00 Test Item Value Reference Range Comments TOTAL COUNTED (BEAKER) (test ywfu=1108) POCT-GLUCOSE [id number] 12:17:00 Test Item Value Reference Range Comments POC-GLUCOSE METER (BEAKER) 208 mg/dL 70-110 TESTED AT [address] (test oarm=5463) [facility] [address] POCT-GLUCOSE [id number] 08:57:00 Test Item Value Reference Range Comments POC-GLUCOSE METER (BEAKER) 230 mg/dL 70-110 TESTED AT [address] (test ydtq=1052) [place] [id number] 05:56:00 Test Item Value Reference Range Comments MAGNESIUM (BEAKER) (test vimt=910) 1.6 mg/dL 1.6-2.6 BASIC METABOLIC [id number] 05:56:00 Test Item Value Reference Range Comments SODIUM (BEAKER) (test 137 meq/L 136-145 aigx=388) POTASSIUM (BEAKER) (test 4.2 meq/L 3.5-5.1 lsvg=914) CHLORIDE (BEAKER) (test 108 meq/L 98-107 oeez=347) CO2 (BEAKER) (test 19 meq/L 22-29 aznn=651) BLOOD UREA NITROGEN 28 mg/dL 7-21 (BEAKER) (test tbdw=357) CREATININE (BEAKER) (test 1.35 mg/dL 0.57-1.25 jfre=993) GLUCOSE RANDOM (BEAKER) 271 mg/dL 70-105 (test ejpw=611) CALCIUM (BEAKER) (test 8.4 mg/dL 8.4-10.2 usee=447) EGFR (BEAKER) (test 52 mL/min/1.73 sq m ESTIMATED GFR IS NOT urvw=5690) ACCURATE CREATININE CLEARANCE IN PREDICTING GLOMERULAR FILTRATION RATE. ESTIMATED GFR IS NOT APPLICABLE FOR DIALYSIS PATIENTS. POCT-GLUCOSE [id number] 21:20:00 Test Item Value Reference Range Comments POC-GLUCOSE METER (BEAKER) 329 mg/dL 70-110 Notified JUDSON WATTS/TESTED AT [facility] (test ilzq=0598) [facility] [place] [facility] [address] POCT-GLUCOSE [id number] 18:14:00 Test Item Value Reference Range Comments POC-GLUCOSE METER (BEAKER) 299 mg/dL 70-110 TESTED AT [facility] [address] [place] (test fjgk=1017) [facility] [address] CBC W/PLT COUNT & AUTO [id number] 15:17:00 Test Item Value Reference Range Comments WHITE BLOOD CELL COUNT (BEAKER) (test ning=873) 8.0 K/ L 3.5-10.5 RED BLOOD CELL COUNT (BEAKER) (test riwh=151) 4.25 M/ L 4.63-6.08 HEMOGLOBIN (BEAKER) (test fyxi=328) 11.7 GM/DL 13.7-17.5 HEMATOCRIT (BEAKER) (test zdrd=584) 37.9 % 40.1-51.0 MEAN CORPUSCULAR VOLUME (BEAKER) (test fmkw=757) 89.2 fL 79.0-92.2 MEAN CORPUSCULAR HEMOGLOBIN (BEAKER) (test 27.5 pg 25.7-32.2 adul=464) MEAN CORPUSCULAR HEMOGLOBIN CONC (BEAKER) (test 30.9 GM/DL 32.3-36.5 pgmm=843) RED CELL DISTRIBUTION WIDTH (BEAKER) (test 16.1 % 11.6-14.4 jzsa=880) PLATELET COUNT (BEAKER) (test crpq=012) 139 K/CU MM 150-450 MEAN PLATELET VOLUME (BEAKER) (test iuzm=103) 10.4 fL 9.4-12.4 NUCLEATED RED BLOOD CELLS (BEAKER) (test 0 /100 WBC 0-0 khdq=145) NEUTROPHILS RELATIVE PERCENT (BEAKER) (test 52 % cvig=956) LYMPHOCYTES RELATIVE PERCENT (BEAKER) (test 24 % ipjh=561) MONOCYTES RELATIVE PERCENT (BEAKER) (test 22 % grjn=710) EOSINOPHILS RELATIVE PERCENT (BEAKER) (test 2 % eftb=073) BASOPHILS RELATIVE PERCENT (BEAKER) (test 0 % lcxe=271) NEUTROPHILS ABSOLUTE COUNT (BEAKER) (test 4.11 K/ L 1.78-5.38 ycxj=146) LYMPHOCYTES ABSOLUTE COUNT (BEAKER) (test 1.91 K/ L 1.32-3.57 qjzp=230) MONOCYTES ABSOLUTE COUNT (BEAKER) (test 1.75 K/ L 0.30-0.82 nazw=631) EOSINOPHILS ABSOLUTE COUNT (BEAKER) (test 0.14 K/ L 0.04-0.54 bsyf=529) BASOPHILS ABSOLUTE COUNT (BEAKER) (test 0.03 K/ L 0.01-0.08 uvjx=011) IMMATURE GRANULOCYTES-RELATIVE PERCENT (BEAKER) 0 % 0-1 (test cisl=5401) (MANUAL DIFFERENTIAL)2017-02-03 15:17:00 Test Item Value Reference Range Comments TOTAL COUNTED (BEAKER) (test qvvf=1015) WBC MORPHOLOGY (BEAKER) (test nfoi=440) Normal PLT MORPHOLOGY (BEAKER) (test gzrt=953) Normal RBC MORPHOLOGY (BEAKER) (test zrdg=118) Normal POCT-GLUCOSE [id number] 12:54:00 Test Item Value Reference Range Comments POC-GLUCOSE METER (BEAKER) 173 mg/dL 70-110 TESTED AT [facility] [address] [facility] (test doqb=1635) [facility] [address] URINALYSIS W/ REFLEX URINE [id number] 12:06:00 Test Item Value Reference Range Comments COLOR (BEAKER) (test kara=895) Yellow CLARITY (BEAKER) (test paqw=119) Clear SPECIFIC GRAVITY UA (BEAKER) (test bqpl=069) 1.016 1.001-1.035 PH UA (BEAKER) (test djly=742) 5.0 5.0-8.0 PROTEIN UA (BEAKER) (test hmjt=333) 20 mg/dL Negative GLUCOSE UA (BEAKER) (test ewlv=759) 50 mg/dL Negative KETONES UA (BEAKER) (test hpfe=153) Negative Negative BILIRUBIN UA (BEAKER) (test nyst=810) Negative Negative BLOOD UA (BEAKER) (test rkbk=287) Trace Negative NITRITE UA (BEAKER) (test doit=354) Negative Negative LEUKOCYTE ESTERASE UA (BEAKER) (test jeyx=752) Negative Negative UROBILINOGEN UA (BEAKER) (test bepl=998) 0.2 mg/dL 0.2-1.0 RBC UA (BEAKER) (test vhch=121) 3 /HPF WBC UA (BEAKER) (test zmsr=151) 4 /HPF BACTERIA (BEAKER) (test uzss=317) Occasional MUCUS (BEAKER) (test chhm=7029) Occasional SQUAMOUS EPITHELIAL (BEAKER) (test vumt=825) 1 /HPF AMORPHOUS CRYSTALS (BEAKER) (test uuwn=7285) Occasional SOURCE(BEAKER) (test lzcu=7384) CREATININE, RANDOM [id number] 10:52:00 Test Item Value Reference Range Comments CREATININE URINE (BEAKER) (test pthd=685) 127.3 mg/dL Reference Range: No NormalsPROTEIN, RANDOM [id number] 10:52:00 Test Item Value Reference Range Comments PROTEIN, URINE (BEAKER) (test subx=4576) 19 mg/dL 0-14 POCT-GLUCOSE [id number] 07:55:00 Test Item Value Reference Range Comments POC-GLUCOSE METER (BEAKER) 88 mg/dL 70-110 TESTED AT [facility] [address] [facility] (test zqzp=8822) [facility] [address] [id number] 05:22:00 Test Item Value Reference Range Comments MAGNESIUM (BEAKER) (test umlp=448) 1.8 mg/dL 1.6-2.6 BASIC METABOLIC [id number] 05:22:00 Test Item Value Reference Range Comments SODIUM (BEAKER) (test 138 meq/L 136-145 elqx=440) POTASSIUM (BEAKER) (test 4.0 meq/L 3.5-5.1 hvdu=248) CHLORIDE (BEAKER) (test 110 meq/L 98-107 ofmw=569) CO2 (BEAKER) (test 21 meq/L 22-29 dccc=249) BLOOD UREA NITROGEN 31 mg/dL 7-21 (BEAKER) (test vqog=696) CREATININE (BEAKER) (test 1.27 mg/dL 0.57-1.25 jiok=915) GLUCOSE RANDOM (BEAKER) 130 mg/dL 70-105 (test larb=730) CALCIUM (BEAKER) (test 8.4 mg/dL 8.4-10.2 wizk=393) EGFR (BEAKER) (test 56 mL/min/1.73 sq m ESTIMATED GFR IS NOT uzho=1154) ACCURATE CREATININE CLEARANCE IN PREDICTING GLOMERULAR FILTRATION RATE. ESTIMATED GFR IS NOT APPLICABLE FOR DIALYSIS PATIENTS. B-TYPE NATRIURETIC FACTOR (BNP)2017-02-03 05:17:00 Test Item Value Reference Range Comments B-TYPE NATRIURETIC PEPTIDE (BEAKER) (test 315 pg/mL 0-100 ztfr=342) POCT-GLUCOSE [id number] 21:36:00 Test Item Value Reference Range Comments POC-GLUCOSE METER (BEAKER) 230 mg/dL 70-110 TESTED AT [address] (test izte=0898) [place] [address] POCT-GLUCOSE [id number] 17:50:00 Test Item Value Reference Range Comments POC-GLUCOSE METER (BEAKER) 185 mg/dL 70-110 TESTED AT [address] (test sxyj=3162) [place] [address] POCT-GLUCOSE [id number] 12:49:00 Test Item Value Reference Range Comments POC-GLUCOSE METER (BEAKER) 168 mg/dL 70-110 TESTED AT [address] (test gfgh=9995) [place] [address] CT, CHEST, WITHOUT [id number] 11:27:00FINAL REPORT Chest CT without contrast Reason [...] MDReport Verified Date/Time: 02/02/2017 11:27:58 Reading Location: [facility] B1 [id number] Ortho Consult Reading Room Electronically signed by: CAR KABA M.D. on 11:27 AMPOCT-GLUCOSE [id number] 08:24:00 Test Item Value Reference Range Comments POC-GLUCOSE METER (BEAKER) 84 mg/dL 70-110 TESTED AT [facility] [address] [facility] (test pbss=5541) [facility] [address] [id number] 07:42:00 Test Item Value Reference Range Comments MAGNESIUM (BEAKER) (test fgid=265) 1.8 mg/dL 1.6-2.6 BASIC METABOLIC [id number] 07:42:00 Test Item Value Reference Range Comments SODIUM (BEAKER) (test 137 meq/L 136-145 bdzy=085) POTASSIUM (BEAKER) (test 3.8 meq/L 3.5-5.1 jvvj=185) CHLORIDE (BEAKER) (test 108 meq/L 98-107 cxbt=243) CO2 (BEAKER) (test 20 meq/L 22-29 nsoz=788) BLOOD UREA NITROGEN 35 mg/dL 7-21 (BEAKER) (test vysm=623) CREATININE (BEAKER) (test 1.30 mg/dL 0.57-1.25 mqmg=151) GLUCOSE RANDOM (BEAKER) 102 mg/dL 70-105 (test kxrt=906) CALCIUM (BEAKER) (test 8.4 mg/dL 8.4-10.2 mjxw=607) EGFR (BEAKER) (test 54 mL/min/1.73 sq m ESTIMATED GFR IS NOT ujnq=3405) ACCURATE CREATININE CLEARANCE IN PREDICTING GLOMERULAR FILTRATION RATE. ESTIMATED GFR IS NOT APPLICABLE FOR DIALYSIS PATIENTS. CBC W/PLT COUNT & AUTO [id number] 07:40:00 Test Item Value Reference Range Comments WHITE BLOOD CELL COUNT (BEAKER) (test hjln=842) 9.3 K/ L 3.5-10.5 RED BLOOD CELL COUNT (BEAKER) (test efvr=646) 4.32 M/ L 4.63-6.08 HEMOGLOBIN (BEAKER) (test ylns=245) 11.9 GM/DL 13.7-17.5 HEMATOCRIT (BEAKER) (test qstk=002) 38.3 % 40.1-51.0 MEAN CORPUSCULAR VOLUME (BEAKER) (test iitf=438) 88.7 fL 79.0-92.2 MEAN CORPUSCULAR HEMOGLOBIN (BEAKER) (test 27.5 pg 25.7-32.2 tnen=198) MEAN CORPUSCULAR HEMOGLOBIN CONC (BEAKER) (test 31.1 GM/DL 32.3-36.5 mubj=070) RED CELL DISTRIBUTION WIDTH (BEAKER) (test 16.4 % 11.6-14.4 tyab=569) PLATELET COUNT (BEAKER) (test hfgz=689) 150 K/CU MM 150-450 MEAN PLATELET VOLUME (BEAKER) (test jqql=406) 10.3 fL 9.4-12.4 NUCLEATED RED BLOOD CELLS (BEAKER) (test 0 /100 WBC 0-0 rsqx=605) NEUTROPHILS RELATIVE PERCENT (BEAKER) (test 58 % ambw=440) LYMPHOCYTES RELATIVE PERCENT (BEAKER) (test 20 % inuq=139) MONOCYTES RELATIVE PERCENT (BEAKER) (test 20 % cywo=813) EOSINOPHILS RELATIVE PERCENT (BEAKER) (test 2 % dbaa=481) BASOPHILS RELATIVE PERCENT (BEAKER) (test 0 % grdl=706) NEUTROPHILS ABSOLUTE COUNT (BEAKER) (test 5.35 K/ L 1.78-5.38 rfji=780) LYMPHOCYTES ABSOLUTE COUNT (BEAKER) (test 1.84 K/ L 1.32-3.57 pdnb=629) MONOCYTES ABSOLUTE COUNT (BEAKER) (test 1.83 K/ L 0.30-0.82 mbyo=883) EOSINOPHILS ABSOLUTE COUNT (BEAKER) (test 0.16 K/ L 0.04-0.54 jhzy=971) BASOPHILS ABSOLUTE COUNT (BEAKER) (test 0.03 K/ L 0.01-0.08 jzkq=402) IMMATURE GRANULOCYTES-RELATIVE PERCENT (BEAKER) 0 % 0-1 (test tkzh=2110) POCT-GLUCOSE [id number] 21:29:00 Test Item Value Reference Range Comments POC-GLUCOSE METER (BEAKER) 273 mg/dL 70-110 TESTED AT [address] (test zrjt=5686) [facility] [address] POCT-GLUCOSE [id number] 19:21:00 Test Item Value Reference Range Comments POC-GLUCOSE METER (BEAKER) 286 mg/dL 70-110 TESTED AT [address] (test jhof=8042) [facility] [address] POCT-GLUCOSE [id number] 17:33:00 Test Item Value Reference Range Comments POC-GLUCOSE METER (BEAKER) 263 mg/dL 70-110 TESTED AT [address] (test ugna=8107) [facility] [address] POCT-GLUCOSE [id number] 12:25:00 Test Item Value Reference Range Comments POC-GLUCOSE METER (BEAKER) 196 mg/dL 70-110 TESTED AT [address] (test teqb=3535) [facility] [address] CBC W/PLT COUNT & AUTO [id number] 10:54:00 Test Item Value Reference Range Comments WHITE BLOOD CELL COUNT (BEAKER) (test byfm=414) 9.0 K/ L 3.5-10.5 RED BLOOD CELL COUNT (BEAKER) (test ahpf=986) 4.43 M/ L 4.63-6.08 HEMOGLOBIN (BEAKER) (test ejzg=324) 12.2 GM/DL 13.7-17.5 HEMATOCRIT (BEAKER) (test yyan=750) 39.3 % 40.1-51.0 MEAN CORPUSCULAR VOLUME (BEAKER) (test aaas=673) 88.7 fL 79.0-92.2 MEAN CORPUSCULAR HEMOGLOBIN (BEAKER) (test 27.5 pg 25.7-32.2 xkbu=884) MEAN CORPUSCULAR HEMOGLOBIN CONC (BEAKER) (test 31.0 GM/DL 32.3-36.5 opxd=310) RED CELL DISTRIBUTION WIDTH (BEAKER) (test 16.4 % 11.6-14.4 khdr=118) PLATELET COUNT (BEAKER) (test vsxw=081) 157 K/CU MM 150-450 MEAN PLATELET VOLUME (BEAKER) (test fpwm=527) 11.1 fL 9.4-12.4 NUCLEATED RED BLOOD CELLS (BEAKER) (test 0 /100 WBC 0-0 trpe=139) NEUTROPHILS RELATIVE PERCENT (BEAKER) (test 55 % ykdv=451) LYMPHOCYTES RELATIVE PERCENT (BEAKER) (test 24 % verh=470) MONOCYTES RELATIVE PERCENT (BEAKER) (test 19 % bbhf=243) EOSINOPHILS RELATIVE PERCENT (BEAKER) (test 2 % aztw=338) BASOPHILS RELATIVE PERCENT (BEAKER) (test 0 % buyj=386) NEUTROPHILS ABSOLUTE COUNT (BEAKER) (test 4.95 K/ L 1.78-5.38 owwa=416) LYMPHOCYTES ABSOLUTE COUNT (BEAKER) (test 2.13 K/ L 1.32-3.57 bday=420) MONOCYTES ABSOLUTE COUNT (BEAKER) (test 1.71 K/ L 0.30-0.82 vppd=142) EOSINOPHILS ABSOLUTE COUNT (BEAKER) (test 0.17 K/ L 0.04-0.54 loow=038) BASOPHILS ABSOLUTE COUNT (BEAKER) (test 0.02 K/ L 0.01-0.08 owvj=618) IMMATURE GRANULOCYTES-RELATIVE PERCENT (BEAKER) 0 % 0-1 (test mgow=0705) (MANUAL DIFFERENTIAL)2017-02-01 10:54:00 Test Item Value Reference Range Comments TOTAL COUNTED (BEAKER) (test gnmq=8137) WBC MORPHOLOGY (BEAKER) (test orgw=680) Normal PLT MORPHOLOGY (BEAKER) (test dhik=331) Normal RBC MORPHOLOGY (BEAKER) (test whpx=252) Normal POCT-GLUCOSE [id number] 08:17:00 Test Item Value Reference Range Comments POC-GLUCOSE METER (BEAKER) 176 mg/dL 70-110 TESTED AT [facility] [address] [facility] (test bdpt=8995) [facility] [address] [id number] 06:41:00 Test Item Value Reference Range Comments MAGNESIUM (BEAKER) (test mogf=213) 1.7 mg/dL 1.6-2.6 BASIC METABOLIC [id number] 06:41:00 Test Item Value Reference Range Comments SODIUM (BEAKER) (test 136 meq/L 136-145 xwkb=924) POTASSIUM (BEAKER) (test 3.6 meq/L 3.5-5.1 bixh=324) CHLORIDE (BEAKER) (test 107 meq/L 98-107 sofy=471) CO2 (BEAKER) (test 21 meq/L 22-29 cgyj=284) BLOOD UREA NITROGEN 37 mg/dL 7-21 (BEAKER) (test dypv=891) CREATININE (BEAKER) (test 1.43 mg/dL 0.57-1.25 wsjc=546) GLUCOSE RANDOM (BEAKER) 180 mg/dL 70-105 (test sufn=269) CALCIUM (BEAKER) (test 8.4 mg/dL 8.4-10.2 vsth=620) EGFR (BEAKER) (test 48 mL/min/1.73 sq m ESTIMATED GFR IS NOT mbkj=2718) ACCURATE CREATININE CLEARANCE IN PREDICTING GLOMERULAR FILTRATION RATE. ESTIMATED GFR IS NOT APPLICABLE FOR DIALYSIS PATIENTS. POCT-GLUCOSE [id number] 21:33:00 Test Item Value Reference Range Comments POC-GLUCOSE METER (BEAKER) 295 mg/dL 70-110 TESTED AT [address] (test gvty=9851) [place] [id number] POCT-GLUCOSE [id number] 17:47:00 Test Item Value Reference Range Comments POC-GLUCOSE METER (BEAKER) 277 mg/dL 70-110 TESTED AT [address] (test xfdn=4472) [place] [address] RAD, CHEST, 2 [id number] 15:44:00Reason for exam:->dyspneaFINAL REPORT HISTORY : dyspnea. [...] MDReport Verified Date/Time: 01/31/2017 15:44:13 Reading Location: [facility] C013X Ortho Consult Reading Room POCT-GLUCOSE [id number] 11:51:00 Test Item Value Reference Range Comments POC-GLUCOSE METER (BEAKER) 238 mg/dL 70-110 TESTED AT [address] (test ovvn=5138) [facility] [address] POCT-GLUCOSE [id number] 09:54:00 Test Item Value Reference Range Comments POC-GLUCOSE METER (BEAKER) 224 mg/dL 70-110 TESTED AT [facility] [address] (test dzcy=4345) [facility] [address] CBC W/PLT COUNT & AUTO [id number] 05:34:00 Test Item Value Reference Range Comments WHITE BLOOD CELL COUNT (BEAKER) (test bylg=968) 9.4 K/ L 3.5-10.5 RED BLOOD CELL COUNT (BEAKER) (test otny=317) 4.42 M/ L 4.63-6.08 HEMOGLOBIN (BEAKER) (test beqn=287) 12.1 GM/DL 13.7-17.5 HEMATOCRIT (BEAKER) (test fmup=475) 39.0 % 40.1-51.0 MEAN CORPUSCULAR VOLUME (BEAKER) (test ajhf=990) 88.2 fL 79.0-92.2 MEAN CORPUSCULAR HEMOGLOBIN (BEAKER) (test 27.4 pg 25.7-32.2 ymji=656) MEAN CORPUSCULAR HEMOGLOBIN CONC (BEAKER) (test 31.0 GM/DL 32.3-36.5 yfkh=508) RED CELL DISTRIBUTION WIDTH (BEAKER) (test 16.5 % 11.6-14.4 nfeg=848) PLATELET COUNT (BEAKER) (test zsfi=480) 176 K/CU MM 150-450 MEAN PLATELET VOLUME (BEAKER) (test nqsv=501) 10.8 fL 9.4-12.4 NUCLEATED RED BLOOD CELLS (BEAKER) (test 0 /100 WBC 0-0 qkrv=774) NEUTROPHILS RELATIVE PERCENT (BEAKER) (test 52 % ulkz=478) LYMPHOCYTES RELATIVE PERCENT (BEAKER) (test 26 % qqbr=510) MONOCYTES RELATIVE PERCENT (BEAKER) (test 19 % khqk=761) EOSINOPHILS RELATIVE PERCENT (BEAKER) (test 2 % ivmr=478) BASOPHILS RELATIVE PERCENT (BEAKER) (test 0 % oznj=553) NEUTROPHILS ABSOLUTE COUNT (BEAKER) (test 4.91 K/ L 1.78-5.38 lgri=115) LYMPHOCYTES ABSOLUTE COUNT (BEAKER) (test 2.41 K/ L 1.32-3.57 nada=478) MONOCYTES ABSOLUTE COUNT (BEAKER) (test 1.81 K/ L 0.30-0.82 ozsk=612) EOSINOPHILS ABSOLUTE COUNT (BEAKER) (test 0.19 K/ L 0.04-0.54 icll=377) BASOPHILS ABSOLUTE COUNT (BEAKER) (test 0.02 K/ L 0.01-0.08 lxwu=562) IMMATURE GRANULOCYTES-RELATIVE PERCENT (BEAKER) 0 % 0-1 (test ooey=1479) [id number] 05:19:00 Test Item Value Reference Range Comments MAGNESIUM (BEAKER) (test fdao=133) 1.8 mg/dL 1.6-2.6 BASIC METABOLIC [id number] 05:19:00 Test Item Value Reference Range Comments SODIUM (BEAKER) (test 135 meq/L 136-145 xnro=505) POTASSIUM (BEAKER) (test 3.6 meq/L 3.5-5.1 aoml=559) CHLORIDE (BEAKER) (test 105 meq/L 98-107 bkwn=892) CO2 (BEAKER) (test 20 meq/L 22-29 tatj=880) BLOOD UREA NITROGEN 46 mg/dL 7-21 (BEAKER) (test vwtz=735) CREATININE (BEAKER) (test 1.61 mg/dL 0.57-1.25 kkzg=341) GLUCOSE RANDOM (BEAKER) 193 mg/dL 70-105 (test zgrk=123) CALCIUM (BEAKER) (test 8.5 mg/dL 8.4-10.2 plsk=952) EGFR (BEAKER) (test 42 mL/min/1.73 sq m ESTIMATED GFR IS NOT iaxq=8513) ACCURATE CREATININE CLEARANCE IN PREDICTING GLOMERULAR FILTRATION RATE. ESTIMATED GFR IS NOT APPLICABLE FOR DIALYSIS PATIENTS. STREP PNEUMONIAE [id number] 23:56:00 Test Item Value Reference Range Comments STREP PNEUMONIAE ANTIGEN Presumptive negative for Presumptive negative for (BEAKER) (test pneumococcal pneumonia - pneumococcal pneumonia - sxdc=2130) see comment see commen Presumptive negative for pneumococcal pneumonia, suggesting no current or recent pneumococcal infection. Infection due to S. pneumoniae cannot be ruled out since the antigen present in the sample may be below the detection limit of the test.LEGIONELLA ANTIGEN, [id number] 23:54:00 Test Item Value Reference Range Comments L. PNEUMOPHILA SEROGP 1 Negative - see Negative for L. UR AG (BEAKER) (test comment pneumophila serogroup 1 airc=6226) antigen, suggesting no recent or current infection with this serogroup. Legionellosis cannot be ruled out since other serogroups and species may cause disease. INFLUENZA A H1N1 [id number] 23:10:00 Test Item Value Reference Range Comments INFLUENZA A RNA (BEAKER) (test Not Detected Not Detected, Inconclusive geky=3335) NOVEL H1N1 RNA (BEAKER) (test Not Detected Not Detected, Inconclusive dndp=9175) These assays were performed by real-time RT-PCR (marketing director assisted living-PCR) utilizing fluorogenic hydrolysis probe technology for the detection of human Influenza A viruses and the differential detection of novel H1N1 Influenza virus in respiratory specimens. The test is composed of (1) an RNA extraction from patient specimen, and (2) marketing director assisted living-PCR amplification and detection with human Influenza A and novel V5E3-bpnpdpiq primers and probes. A well-conserved region of [...] and its performance characteristics determined by the [facility] Pathology Department, Section of Molecular Pathology. It has not been cleared or approved by the U.S. Food and Drug Administration (FDA). SinceFDA approval is not required for clinical use of the test, validation was done as required by The Clinical Laboratory Amendments of 1988.These assays were performed by real-time RT-PCR (marketing director assisted living-PCR) utilizing fluorogenic hydrolysis probe technology for the detection of human Influenza A viruses and the differential detection of novel H1N1 Influenza virus in respiratory specimens. The test is composed of (1) an RNA extraction from patient specimen, and (2) marketing director assisted living-PCR amplification and detection with human Influenza A and novel A2N6-cmmqyopt primers and probes. A well-conserved region of [...] and its performance characteristics determined by the [facility] Pathology Department, Section of Molecular Pathology. It has not been cleared or approved by the U.S. Food and Drug Administration ( FDA). Since FDA approval is not required for clinical use of the test, validation was done as required by The Clinical Laboratory Amendments of 1988.POCT-GLUCOSE [id number] 23:03:00 Test Item Value Reference Range Comments POC-GLUCOSE METER (BEAKER) 233 mg/dL 70-110 TESTED AT [facility] [address] [facility] (test hexn=6928) [facility] [address] U/S, RENAL, [id number] 22:23:00Reason for exam:->akiFINAL REPORT U/S, RENAL, COMPLETE [...] MDReport Verified Date/Time: 01/30/2017 22:23:06 Reading Location: [address] Ortho Consult Reading Room Electronically signed by: SARIAH BARRIOS MD on 2016 10:23 PMSODIUM, RANDOM [id number] 20:40:00 Test Item Value Reference Range Comments SODIUM URINE (BEAKER) (test ijkf=531) < meq/L Reference Range: No NormalsEOSINOPHIL SMEAR, [id number] 20:40:00 Test Item Value Reference Range Comments EOSINOPHIL SMEAR, URINE (BEAKER) (test No EOS seen No EOS seen jibg=6930) CREATININE, RANDOM [id number] 20:24:00 Test Item Value Reference Range Comments CREATININE URINE (BEAKER) (test urkq=721) 113.2 mg/dL Reference Range: No NormalsMICROALBUMIN, RANDOM [id number] 20:24:00 Test Item Value Reference Range Comments MICROALBUMIN URINE (BEAKER) (test jiwi=7631) 4.2 mg/dL Reference Range: No NormalsURINALYSIS W/ [id number] 20:14:00 Test Item Value Reference Range Comments COLOR (BEAKER) (test oyfb=865) Yellow CLARITY (BEAKER) (test eeyu=089) Hazy SPECIFIC GRAVITY UA (BEAKER) (test ypaz=536) 1.013 1.001-1.035 PH UA (BEAKER) (test pwsq=883) 5.0 5.0-8.0 PROTEIN UA (BEAKER) (test gibr=049) 20 mg/dL Negative GLUCOSE UA (BEAKER) (test uruw=686) 30 mg/dL Negative KETONES UA (BEAKER) (test eeys=061) Negative Negative BILIRUBIN UA (BEAKER) (test tjvr=470) Negative Negative BLOOD UA (BEAKER) (test bhic=942) Negative Negative NITRITE UA (BEAKER) (test eukv=832) Negative Negative LEUKOCYTE ESTERASE UA (BEAKER) (test ehpx=599) Moderate Negative UROBILINOGEN UA (BEAKER) (test ulvy=393) 0.2 mg/dL 0.2-1.0 RBC UA (BEAKER) (test mhac=589) 1 /HPF WBC UA (BEAKER) (test jlac=586) 5 /HPF MUCUS (BEAKER) (test kslp=0075) Rare SQUAMOUS EPITHELIAL (BEAKER) (test vkpw=566) 1 /HPF SOURCE(BEAKER) (test ebns=1706) Urine, Voided POCT-GLUCOSE [id number] 18:25:00 Test Item Value Reference Range Comments POC-GLUCOSE METER (BEAKER) 230 mg/dL 70-110 TESTED AT [address] (test wlay=1867) [facility] [address] POCT-GLUCOSE [id number] 13:49:00 Test Item Value Reference Range Comments POC-GLUCOSE METER (BEAKER) 267 mg/dL 70-110 TESTED AT [address] (test qmes=6970) [facility] [address] HEMOGLOBIN [id number] 11:50:00 Test Item Value Reference Range Comments HEMOGLOBIN A1C (BEAKER) (test iehp=799) 10.7 % 4.3-6.1 TROPONIN [id number] 11:42:00 Test Item Value Reference Range Comments TROPONIN I (BEAKER) (test idsa=073) 0.02 ng/mL 0.00-0.03 Troponin I (TnI) levels [...] acidosis, acute neurological disease, and persistent tachyarrhythmia.POCT-GLUCOSE [id number] 09:41:00 Test Item Value Reference Range Comments POC-GLUCOSE METER (BEAKER) 228 mg/dL 70-110 TESTED AT [facility] [address] [facility] (test lpvr=8121) [facility] [address] RAD, CHEST, 1 VIEW, NON [id number] 07:41:00Reason for exam:->eval pneumoniaShould this be performed [...] represent atelectasis or pneumonitis. Signed: Zuleima Graff [facility] Verified Date/Time: 01/30/2017 07:41:41 ReadingLocation: [facility] B1 C013T Transitional Reading Room [id number] 02:54:00 Test Item Value Reference Range Comments MAGNESIUM (BEAKER) (test pfkb=102) 1.6 mg/dL 1.6-2.6 BASIC METABOLIC [id number] 02:54:00 Test Item Value Reference Range Comments SODIUM (BEAKER) (test 137 meq/L 136-145 gyuv=326) POTASSIUM (BEAKER) (test 3.8 meq/L 3.5-5.1 bnof=229) CHLORIDE (BEAKER) (test 104 meq/L 98-107 curo=104) CO2 (BEAKER) (test 19 meq/L 22-29 xdjm=933) BLOOD UREA NITROGEN 48 mg/dL 7-21 (BEAKER) (test vpmh=142) CREATININE (BEAKER) (test 1.76 mg/dL 0.57-1.25 jnpj=569) GLUCOSE RANDOM (BEAKER) 217 mg/dL 70-105 (test rylr=778) CALCIUM (BEAKER) (test 8.9 mg/dL 8.4-10.2 ikpa=611) EGFR (BEAKER) (test 38 mL/min/1.73 sq m ESTIMATED GFR IS NOT kfas=3507) ACCURATE CREATININE CLEARANCE IN PREDICTING GLOMERULAR FILTRATION RATE. ESTIMATED GFR IS NOT APPLICABLE FOR DIALYSIS PATIENTS. RAPID INFLUENZA A&B [id number] 02:41:00 Test Item Value Reference Range Comments RAPID INFLUENZA A AG (BEAKER) (test Negative Negative, Inconclusive pzxi=5526) RAPID INFLUENZA B AG (BEAKER) (test Negative Negative, Inconclusive gfci=5637) CBC W/PLT COUNT & AUTO [id number] 02:07:00 Test Item Value Reference Range Comments WHITE BLOOD CELL COUNT (BEAKER) (test fyrn=382) 10.6 K/ L 3.5-10.5 RED BLOOD CELL COUNT (BEAKER) (test tpbe=689) 4.75 M/ L 4.63-6.08 HEMOGLOBIN (BEAKER) (test rwpe=129) 13.2 GM/DL 13.7-17.5 HEMATOCRIT (BEAKER) (test erxl=892) 42.4 % 40.1-51.0 MEAN CORPUSCULAR VOLUME (BEAKER) (test tzam=439) 89.3 fL 79.0-92.2 MEAN CORPUSCULAR HEMOGLOBIN (BEAKER) (test 27.8 pg 25.7-32.2 rlza=514) MEAN CORPUSCULAR HEMOGLOBIN CONC (BEAKER) (test 31.1 GM/DL 32.3-36.5 jwwf=355) RED CELL DISTRIBUTION WIDTH (BEAKER) (test 16.8 % 11.6-14.4 rsqb=295) PLATELET COUNT (BEAKER) (test oymt=865) 202 K/CU MM 150-450 MEAN PLATELET VOLUME (BEAKER) (test ydzl=173) 10.7 fL 9.4-12.4 NUCLEATED RED BLOOD CELLS (BEAKER) (test 0 /100 WBC 0-0 mvot=558) NEUTROPHILS RELATIVE PERCENT (BEAKER) (test 63 % zyhe=950) LYMPHOCYTES RELATIVE PERCENT (BEAKER) (test 17 % nszp=660) MONOCYTES RELATIVE PERCENT (BEAKER) (test 18 % qcwq=645) EOSINOPHILS RELATIVE PERCENT (BEAKER) (test 1 % szoo=500) BASOPHILS RELATIVE PERCENT (BEAKER) (test 0 % bchx=215) NEUTROPHILS ABSOLUTE COUNT (BEAKER) (test 6.60 K/ L 1.78-5.38 kjkl=823) LYMPHOCYTES ABSOLUTE COUNT (BEAKER) (test 1.82 K/ L 1.32-3.57 qqel=038) MONOCYTES ABSOLUTE COUNT (BEAKER) (test 1.94 K/ L 0.30-0.82 oiet=826) EOSINOPHILS ABSOLUTE COUNT (BEAKER) (test 0.10 K/ L 0.04-0.54 phey=112) BASOPHILS ABSOLUTE COUNT (BEAKER) (test 0.02 K/ L 0.01-0.08 sgga=896) IMMATURE GRANULOCYTES-RELATIVE PERCENT (BEAKER) 1 % 0-1 (test lzvx=3623) POCT-GLUCOSE [id number] 23:18:00 Test Item Value Reference Range Comments POC-GLUCOSE METER (BEAKER) 230 mg/dL 70-110 TESTED AT [facility] [address] [facility] (test poek=8650) [facility] [address]
[2018-05-25 16:34] LABS: Absolute Lymphocytes (CBC) 1.6 K/uL (0.7-4.9); Absolute Monocytes 1.2 K/uL (0.1-1.3); Absolute Neutrophil 3.4 K/uL (1.8-8.0); Basophils % 0.8 % (0-1.3); Eosinophils % 3.4 % (0-4.4); Hematocrit 31.6 % (39.6-49.0); Lymphocytes % 24.2 % (15.3-44.8); MPV 7.6 fL (7.6-11.3); Monocytes % 18.6 % (3.3-12.3); RBC Red Blood Cell Count 3.17 M/uL (4.33-5.43)
[2018-05-25 16:41] LABS: Potassium 4.4 mmol/L (3.5-5.1)
[2018-05-25 17:01] LABS: Blood Morphology Comment NOT SEEN (NOT SEEN); Platelet Estimate ADEQ
[2018-05-25] MEDS ORDERED: HYDROCODONE/APAP 10/325 TAB ONE (17:17)
[2018-05-25] MEDS ORDERED: CLINDAMYCIN 600MG/D5W 600 MG/50 ML BAG IV ONE (17:18)
[2018-05-25] MEDS ORDERED: CEFAZOLIN/SWI 1gm 1 GM/10 ML SYR ONE (17:18)
--- NOTE | 2018-05-25 17:54 | ER ---
Nurse's Notes [facility] Name: Ely Coley Age: 72 yrs Sex: Male : 1945 Arrival Date: 05/25/2018 Time: 15:39 Bed 17 Private MD: Jean Carlos Velásquez E Diagnosis: Cellulitis of left lower limb Presentation: 05/25 15:43 Presenting complaint: Patient states: left foot pain/swelling x 3 days. Denies injury. sv Transition of care: patient was not received from another setting of care. Onset of symptoms was May 22, 2018. Care prior to arrival: None. 15:43 Method Of Arrival: Ambulatory sv 15:43 Acuity: MITCH 3 sv 18:34 Risk Assessment: Do you want to hurt yourself or someone else? Patient reports no ss desire to harm self or others. Historical: - Allergies: 15:44 steroids; sv - PMHx: 15:44 Atrial Fib; CVA; Diabetes - NIDDM; sv - PSHx: 15:44 pacemaker; right knee; sv - Immunization history:: Adult Immunizations up to date. Screenin:00 Abuse screen: Denies threats or abuse. Denies injuries from another. Nutritional aj1 screening: No deficits noted. Tuberculosis screening: No symptoms or risk factors identified. Assessment: 17:00 General: Appears in no apparent distress. uncomfortable, Behavior is calm, cooperative, aj1 appropriate for age. Pain: Complains of pain in left foot Pain does not radiate. Pain currently is 7 out of 10 on a pain scale. Neuro: Level of Consciousness is awake, alert, obeys commands, Oriented to person, place, time, situation, Speech is normal, Facial symmetry appears normal. Cardiovascular: Patient's skin is warm and dry. Edema is 2+ to left ankle, left foot, right ankle and right foot. Respiratory: Airway is patent Respiratory effort is even, unlabored, Respiratory pattern is regular, symmetrical. GI: No signs and/or symptoms were reported involving the gastrointestinal system. : No signs and/or symptoms were reported regarding the genitourinary system. EENT: No signs and/or symptoms were reported regarding the EENT system. Derm: redness and swelling noted to left foot. Vital Signs: 15:44 BP 130 / 70; Pulse 59; Resp 18; Temp 97.8; Pulse Ox 100% ; Weight 104.33 kg; Height 6 sv ft. 0 in. (182.88 cm); Pain 10/10; 17:37 BP 123 / 53; Pulse 59; Resp 18; Pulse Ox 100% on R/A; aj1 15:44 Body Mass Index 31.19 (104.33 kg, 182.88 cm) sv ED Course: 15:39 Patient arrived in ED. mr 15:40 Jean Carlos Velásquez MD is Private Physician. mr 15:44 Triage completed. sv 15:45 Diomedes Negro PA is PHCP. jr8 15:45 Jerome Morales MD is Attending Physician. jr8 15:45 Arm band placed on. sv 16:20 Patient has correct armband on for positive identification. Bed in low position. Call [facility] light in reach. Side rails up X 1. Adult w/ patient. finishing lab technician on. Pulse ox on. NIBP on. 16:20 Initial lab(s) drawn, by ak, sent to lab. Inserted saline lock: [address] [facility] antecubital area, using aseptic technique. Blood collected. 16:21 Procalcitonin Sent. 5 16:21 BMP Sent. 5 16:21 CBC with Diff Sent. 5 17:00 No provider procedures requiring assistance completed. aj1 17:01 Rhona Figueroa, JUDSON is Primary Nurse. aj1 17:52 Jimenez Mayer MD is Referral Physician. jr8 18:32 Patient did not have IV access during this emergency room visit. ss Administered Medications: 17:15 Drug: Clindamycin 600 mg Route: IVPB; Infused Over: 30 mins; Site: left antecubital; aj1 17:15 Drug: [place] 10 mg-325 mg 1 tabs Route: PO; aj1 17:16 Drug: Ancef 1 grams Route: IVPB; Site: left antecubital; aj1 Outcome: 17:53 Discharge ordered by . jr8 18:32 Discharged to home ambulatory, with significant other. ss 18:32 Condition: good 18:32 Discharge instructions given to patient, family, Instructed on discharge instructions, follow up and referral plans. medication usage, Demonstrated understanding of instructions, follow-up care, Prescriptions given X 3. 18:34 Patient left the ED. ss Signatures: Rhona Figueroa, RN RN aj1 Dacia Rasmussen RN RN alberto Fifi Hernandez mr ParminderGreer, JUDSON RN Diomedes Garcia PA PA jr Dulce Maria Henderson [facility] Corrections: (The following items were deleted from the chart) 17:21 General: Appears in no apparent distress. uncomfortable, Behavior is calm, aj1 cooperative, appropriate for age, aj1 17:21 Pain: Complains of pain in left foot Pain does not radiate. Pain currently is 7 aj1 out of 10 on a pain scale. aj1 : 17:21 Neuro: Level of Consciousness is awake, alert, obeys commands, Oriented to aj1 person, place, time, situation, Speech is normal, Facial symmetry appears normal, aj1 17:21 Cardiovascular: Patient's skin is warm and dry. Edema is 2+ to left ankle, left aj1 foot, right ankle and right foot aj1 17:21 Respiratory: Airway is patent Respiratory effort is even, unlabored, Respiratory aj1 pattern is regular, symmetrical, aj1 : 17:21 GI: No signs and/or symptoms were reported involving the gastrointestinal system. aj1 aj1 17:21 : No signs and/or symptoms were reported regarding the genitourinary system. aj1a : 17:21 EENT: No signs and/or symptoms were reported regarding the EENT system. aj1 aj1 17:21 Derm: redness and swelling noted to left foot aj1 aj1
--- NOTE | 2018-05-25 17:54 | EDPHYS ---
Physician Documentation [facility] Name: Ely Coley Age: 72 yrs Sex: Male : 1945 Arrival Date: 05/25/2018 Time: 15:39 Bed 17 Private MD: Jean Carlos Velásquez E ED Physician Jerome Morales HPI: 05/25 15:53 This 72 yrs old Male presents to ER via Ambulatory with complaints of Feet jr8 Swelling. 15:53 The patient presents with cellulitis of the plantar aspect of left second toe, left jr8 second toe, left third toe, left fourth toe, Left fourth toenail, Left third toenail and Left second toenail. Description: erythematous, swollen, warm. Onset: The symptoms/episode began/occurred 3 day(s) ago. Possible cause(s): diabetic with poor foot care. Associated signs and symptoms: Pertinent positives: erythema, swelling, Pertinent negatives: discharge, drainage, fever, nausea. Modifying factors: the symptoms are alleviated by nothing, the symptoms are aggravated by movement, walking, pressure, touching. Severity of symptoms: in the emergency department the symptoms a " 6" out of "10". The patient has experienced a previous episode, and the symptoms today are exactly the same. The patient has not recently seen a physician. Patient reports that he has a hx of diabetes with cellulitis of his foot in the past. His trimmed his toenails 3 days ago and shortly after he started experiencing pain in his left 2-4th toes with swelling and erythema noted. . Historical: - Allergies: 15:44 steroids; sv - PMHx: 15:44 Atrial Fib; CVA; Diabetes - NIDDM; sv - PSHx: 15:44 pacemaker; right knee; sv - Immunization history:: Adult Immunizations up to date. ROS: 15:53 Constitutional: Negative for fever, chills, and weight loss, Cardiovascular: Negative jr8 for chest pain, palpitations, and edema, Respiratory: Negative for shortness of breath, cough, wheezing, and pleuritic chest pain, Abdomen/GI: Negative for abdominal pain, nausea, vomiting, diarrhea, and constipation, Skin: Negative for injury, rash, and discoloration, Neuro: Negative for headache, weakness, numbness, tingling, and seizure. 15:53 MS/extremity: Positive for erythema, swelling, tenderness, warmth, of the plantar aspect of left second toe, left second toe, left third toe, left fourth toe, Left fourth toenail, Left third toenail and Left second toenail, Negative for injury or acute deformity, abrasion, laceration. Exam: 15:57 Constitutional: This is a well developed, well nourished patient who is awake, alert, jr8 and in no acute distress. Head/Face: Normocephalic, atraumatic. ENT: Nares patent. No nasal discharge, no septal abnormalities noted. Tympanic membranes are normal and external auditory canals are clear. Oropharynx with no redness, swelling, or masses, exudates, or evidence of obstruction, uvula midline. Mucous membranes moist. Cardiovascular: Regular rate and rhythm with a normal S1 and S2. No gallops, murmurs, or rubs. Normal PMI, no JVD. No pulse deficits. Respiratory: Lungs have equal breath sounds bilaterally, clear to auscultation and percussion. No rales, rhonchi or wheezes noted. No increased work of breathing, no retractions or nasal flaring. Abdomen/GI: Soft, non-tender, with normal bowel sounds. No distension or tympany. No guarding or rebound. No evidence of tenderness throughout. Skin: Warm, dry with normal turgor. Normal color with no rashes, no lesions, and no evidence of cellulitis. Neuro: Awake and alert, GCS 15, oriented to person, place, time, and situation. Cranial nerves II-XII grossly intact. Motor strength 5/5 in all extremities. Sensory grossly intact. Cerebellar exam normal. Normal gait. 15:57 Musculoskeletal/extremity: Extremities: grossly normal except: noted in the plantar aspect of left second toe, left second toe, left third toe, left fourth toe, Left fourth toenail, Left third toenail and Left second toenail: erythema, swelling, tenderness, noted in the left first toe and Left first toenail: previous toe amputation, ROM: full active range of motion, in all extremities, Circulation is intact in all extremities. Pulses: noted to be 2+ in the right posterior tibial artery and left posterior tibial artery, Edema, 2+ to the left ankle, left foot, left toes, right ankle, right foot and right toes is noted, Sensation intact. Vital Signs: 15:44 BP 130 / 70; Pulse 59; Resp 18; Temp 97.8; Pulse Ox 100% ; Weight 104.33 kg; Height 6 sv ft. 0 in. (182.88 cm); Pain 10/10; 17:37 BP 123 / 53; Pulse 59; Resp 18; Pulse Ox 100% on R/A; aj1 15:44 Body Mass Index 31.19 (104.33 kg, 182.88 cm) sv MDM: 15:45 Patient medically screened. jr8 17:46 Data reviewed: vital signs, nurses notes, lab test result(s), and as a result, I will jr8 discharge patient. Data interpreted: Pulse oximetry: on room air is 100 %. Interpretation: normal. Counseling: I had a detailed discussion with the patient and/or guardian regarding: the historical points, exam findings, and any diagnostic results supporting the discharge/admit diagnosis, lab results, the need for outpatient follow up, a family practitioner, a general surgeon, to return to the emergency department if symptoms worsen or persist or if there are any questions or concerns that arise at home. 05/25 16:01 Order name: CBC with Diff; Complete Time: 17:29 05/25 16:01 Order name: BMP; Complete Time: 16:51 [facility] 05/25 16:01 Order name: Procalcitonin; Complete Time: 17:29 [facility] 05/25 16:36 Order name: Manual Differential; Complete Time: 17:29 EDMS Administered Medications: 17:15 Drug: Clindamycin 600 mg Route: IVPB; Infused Over: 30 mins; Site: left antecubital; aj1 17:15 Drug: Theodore 10 mg-325 mg 1 tabs Route: PO; aj1 17:16 Drug: Ancef 1 grams Route: IVPB; Site: left antecubital; aj1 Disposition: 18:38 Co-signature as Attending Physician, Jerome Morales MD. rn Disposition: 05/25/18 17:53 Discharged to Home. Impression: Cellulitis of left lower limb. - Condition is Stable. - Discharge Instructions: Cellulitis, Adult. - Prescriptions for Bactrim DS 800- 160 mg Oral Tablet - take 1 tablet by ORAL route every 12 hours for 10 days; 20 tablet. Keflex 500 mg Oral Capsule - take 1 capsule by ORAL route every 6 hours for 10 days; 40 capsule. Tylenol- Codeine #3 300-30 mg Oral Tablet - take 2 tablets by ORAL route every 6 hours As needed; 20 tablet. - Medication Reconciliation Form, Thank You Letter, Antibiotic Education, Prescription Opioid Use form. - Follow up: Jimenez Mayer MD; When: 2 - 3 days; Reason: Recheck today's complaints, Continuance of care, Re-evaluation by your physician. - Problem is new. - Symptoms have improved. Signatures: Dispatcher [employer] EDMS Rhona Figueroa RN RN aj1 Dacia Rasmussen RN RN Jerome Carrizales MD MD rn Smirch, Shelby, RN RN ss Diomedes Negro PA PA jr8 Corrections: (The following items were deleted from the chart) 18:34 17:53 05/25/2018 17:53 Discharged to Home. Impression: Cellulitis of left lower limb. ss Condition is Stable. Forms are Medication Reconciliation Form, Thank You Letter, Antibiotic Education, Prescription Opioid Use. Follow up: Dr. Jimenez Mayer; When: 2 - 3 days; Reason: Recheck today's complaints, Continuance of care, Re-evaluation by your physician. Problem is new. Symptoms have improved. jr8
[2018-05-25 18:40] VITALS: TEMP 97.8; O2SAT 100
[2018-05-25 18:41] VITALS: BP 123/53
== END 2018-05-25 18:34 | disposition home or self-care (01) ==
LOC: ER 15:36
DX: L03.032 Cellulitis of left toe (principal); L03.116 Cellulitis of left lower limb; E11.9 Type 2 diabetes mellitus without complications; I48.91 Unspecified atrial fibrillation; Z86.73 Personal history of transient ischemic attack (TIA), and cerebral infarction without residual deficits
CPT/HCPCS: 85025; 80048; 36415; 84145; 96375; 96374; 99284; J0690

== ENCOUNTER 2018-08-17 18:35 | Emergency (ER) | payer OTHER ==
--- OUTSIDE RECORDS SUMMARY | 2018-08-17 18:37 | XMS REPORT | Clinical Summary ---
:1945 Author Organization [facility] Address [address] [place] [address] Care Team Providers Name Role Phone Unavailable [...] Not on file Results Not on fileafter 08/16/2017 Insurance Payer Benefit Plan / Group Subscriber ID Type Phone Address [employer] xxxxxxxx Maps Contracted (Home) [place] [address] Advance Directives For more information, please contact:[address] [phone] Code Status Date Activated Date Inactivated Comments Full Code 01/29/2017 11:40 PM 02/08/2017 6:18 PM This code status was determined by: Patient
--- OUTSIDE RECORDS SUMMARY | 2018-08-17 18:38 | XMS REPORT | Continuity of Care Document ---
:1945 Author Organization [facility] [employer] [place] Care Team Providers Name Role Phone [facility] Dekko Unavailable Unavailable Problems Problem Status Onset Classification Date Comments Source Date Reported PAROXYSMAL Active 08/29/19 [facility] AFIB, [address] [place] [address] BRADYCARDIA Center CCL/DUAL PMAKER Active 08/29/19 [facility] IMPLANT/BS/DX: [address] [place] [address] I48.0--PA Center 362.56 Active 02/14/19 [facility] 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 Atrial Resolved Problem 09/15/2016 [facility] Chest pain Resolved Problem 09/15/2016 [facility] CHF (Confirmed) Resolved Problem 09/15/2016 [facility] CVA (Confirmed) Resolved Problem 09/15/2016 [facility] Dizziness Resolved Problem 09/15/2016 [facility] DM - Diabetes Active Problem 09/15/2016 [facility] mellitus [facility] Edema Resolved Problem 09/15/2016 [facility] Syncope Resolved Problem 09/15/2016 [facility] Bradycardia Resolved Problem 09/15/2016 [facility] Hypertension Active Problem 09/15/2016 [facility] Medications Medication Details Route Status Patient Ordering Order Source Instructions Provider Date Diltiazem 60 mg, No Longer [facility] Route: PO, Active 2016 Medical Drug form: Center TAB, Daily, Dosing Weight 116.364, kg, Start date: 09/13/16 9:00:00 CDT, Duration: 30 day, Stop date: 10/12/16 9:00:00 CDT metoprolol tartrate 50 mg, 1 Inactive [facility] tab, Route: 2017 Medical PO, Drug Center form: TAB, Q12H, Dosing Weight 116.364, kg, Start date: 09/12/16 21:00:00 CDT, Duration: 30 day, Stop date: 10/12/16 9:00:00 CDTNotes: (Same as: Lopressor) Insulin regular 4 unit, 0.04 Inactive [facility] mL, Route: 2017 Medical SUB-Q, Drug Center form: SOLN, ONCE, [...] Acetaminophen 300 MG 1 tab, PO, Active [facility] / Codeine Phosphate Q4H, PRN 2017 Medical 30 MG Oral Tablet Pain Score Center 4-6, 0 Refill(s) Dextrose 50% Syringe 25 gm, 50 Inactive [facility] mL, Route: 2016 Medical IVP, Drug Center Form: INJ, Dosing Weight 116.364, kg, PRN, PRN Blood Glucose Results, Start date: 09/12/16 11:50:00 CDT, Duration: 30 day, Stop date: 10/12/16 11:49:00 CDT Glucagon 1 mg, Route: Inactive [facility] IM, Drug 2016 Medical form: Center PDR/INJ, PRN, Dosing Weight 116.364, kg, PRN Blood Glucose Results, Start date: 09/12/16 11:50:00 CDT, Duration: 30 day, Stop date: 10/12/16 11:49:00 CDT valsartan 320 mg, 2 Inactive [facility] tab, Route: 2017 Medical PO, Drug Center form: TAB, Daily, Dosing Weight 116.364, kg, Start date: 09/12/16 9:00:00 CDT, Duration: 30 day, Stop date: 10/11/16 9:00:00 CDTNotes: Same as Diovan Cefazolin 1 gm, Route: No Longer [facility] IVPB, Drug Active 2016 Medical form: Center PDR/INJ, ABXQ8H, Dosing Weight 116.364, kg, Start date: 09/11/16 23:00:00 CDT, Duration: 2 doses or times, Stop date: 09/12/16 7:00:00 CDT, ABX Indication: Surgical ProphylaxisN otes: (Same As: Alida Kennedy) MEDICATION WASTE Product Size: 1000 mg Product Wasted: _0_ mg Calcium Gluconate 3 gm, 30 mL, No Longer [place] Route: IVPB, Active 2016 Medical PRN, Dosing Center Weight 116.364, kg, PRN Abnormal Lab Result, For NON-ICU Patients Only., Start date: 09/11/16 22:33:00 CDT, Duration: 30 day, Stop date: 10/11/16 22:32:00 CDTNotes: WASTE: F/P - Sink; E - Municipal Trash Bin Magnesium Oxide 800 mg, 2 No Longer [place] tab, Route: Active 2016 Medical PO, Drug Center form: TAB, PRN, Dosing Weight 116.364, kg, PRN Abnormal Lab Result, For NON-ICU Patients Only., Start date: 09/11/16 22:33:00 CDT, Duration: 30 day, Stop date: 10/11/16 22:32:00 CDTNotes: (Same as: Mag-Ox 400) Magnesium oxide [id number] elemental magnesium Dose=____mg magnesium oxide (___mg elemental magnesium) Magnesium Sulfate 2 gm, 50 mL, No Longer [facility] Route: IVPB, Active 2016 Medical Drug form: Center INJ, PRN, Dosing Weight 116.364, kg, PRN Abnormal Lab Result, For NON-ICU Patients Only., Start date: 09/11/16 22:33:00 CDT, Duration: 30 day, Stop date: 10/11/16 22:32:00 CDTNotes: WASTE: F/P - Sink; E - Municipal Trash Bin sodium phosphate 15 mmol, 5 No Longer [place] mL, Route: Active 2016 Medical IVPB, PRN, Center Dosing Weight 116.364, kg, PRN Abnormal Lab Result, For NON-ICU Patients Only., Start date: 09/11/16 22:33:00 CDT, Duration: 30 day, Stop date: 10/11/16 22:32:00 CDT Potassium Chloride 10 mEq, 50 No Longer [place] mL, Route: Active 2016 Medical IVPB, Drug Center form: INJ, PRN, Dosing Weight 116.364, kg, PRN Abnormal Lab Result, For NON-ICU Patients Only, Start date: 09/11/16 22:33:00 CDT, Duration: 30 day, Stop date: 10/11/16 22:32:00 CDTNotes: (Same as: KCL) Infuse over 2 hours. potassium 2 pkt, No Longer [place] phosphate-sodium Route: PO, Active 2016 Medical phosphate 250 mg-280 Drug Form: Dexter mg-160 mg oral PDR/REC, powder for Dosing reconstitution Weight 116.364, kg, PRN, PRN Abnormal Lab Result, For NON-ICU Patients Only, Start date: 09/11/16 22:33:00 CDT, Duration: 30 day, Stop date: 10/11/16 22:32:00 CDTNotes: (Same as: Phos-NaK) Each 1.5 gm pkt has 250mg phosphorous. Mix w/2.5oz water and stir. potassium phosphate 15 mmol, 5 No Longer [place] mL, Route: Active 2016 [facility] IVPB, PRN, Dexter Dosing Weight 116.364, kg, PRN Abnormal Lab Result, For NON-ICU Patients Only., Start date: 09/11/16 22:33:00 CDT, Duration: 30 day, Stop date: 10/11/16 22:32:00 CDTNotes: (Same as: K Phosphate.) 1 mMol phoshate has 1.47 mEq potassium Infuse over 4 hours Magnesium Sulfate 2 gm, 50 mL, No Longer [facility] Route: IVPB, Active 2016 Medical Drug form: Dexter INJ, ONCE, Dosing Weight 116.364, kg, Total dose=2 gm, Start date: 09/11/16 22:22:00 CDT, Duration: 1 doses or times, Stop date: 09/11/16 22:22:00 CDTNotes: WASTE: F/P - Sink; E - Municipal Trash Bin Magnesium Sulfate 2 gm, 50 mL, Inactive [place] Route: IVPB2016 Medical Drug form: Dexter INJ, ONCE, Dosing Weight 116.364, kg, Total dose=2 gm, Start date: 09/11/16 22:21:00 CDT, Duration: 1 doses or times, Stop date: 09/11/16 22:21:00 CDTNotes: WASTE: F/P - Sink; E - Municipal Trash Bin Potassium Chloride 40 mEq, 2 Inactive [facility] tab, Route: 2017 Medical PO, Drug Center form: ERTAB, ONCE, Dosing Weight 116.364, kg, Start date: 09/11/16 22:21:00 CDT, Stop date: 09/11/16 22:21:00 CDTNotes: (Same as: K-Dur 20) "Do Not Crush" With food and full glass of water Pradaxa 150 mg, 1 No Longer [facility] cap, Route: Active 2016 Medical PO, Drug Center form: CAP, Q12H, Dosing Weight 116.364, kg, Start date: 09/11/16 21:00:00 CDT, Duration: 30 day, Stop date: 10/11/16 9:00:00 CDTNotes: DO NOT break, chew or open capsules for administrati on. metoprolol tartrate 25 mg, Inactive [facility] Route: PO, 2016 Medical Drug form: Center TAB, Q12H, Dosing Weight 116.364, kg, Start date: 09/11/16 21:00:00 CDT, Duration: 30 day, Stop date: 10/11/16 9:00:00 CDT Lasix 20 mg, Inactive [facility] Route: IVP, 2016 Medical Drug form: Center INJ, ONCE, Dosing Weight 116.364, kg, Start date: 09/11/16 18:38:00 CDT, Stop date: 09/11/16 18:38:00 CDT Diltiazem 125 mg, 25 No Longer [facility] mL, Rate: Active 2016 [facility] Titrate, Dexter Start Dose: 2 mg/hr, Titration: none keep at 2mg/hr, Goal(s): Maintain HR Notes: (Same as: Cardizem) tramadol 50 mg, PO, No Longer [place] hydrochloride 50 MG Q4H, PRN Active 2016 Medical Oral Tablet Pain Score Dexter 1-3, # 10 tab, 0 Refill(s) tramadol 50 mg, 1 No Longer [place] hydrochloride 50 MG tab, Route: Active 2017 Medical Oral Tablet PO, Drug Center form: TAB, Q4H, Dosing Weight 116.364, kg, PRN Pain Score 1-3, Start date: 09/11/16 17:31:00 CDT, Duration: 30 day, Stop date: 10/11/16 17:30:00 CDTNotes: Not to exceed 400mg/day. (Same As: Ultram) metoprolol tartrate 25 mg, PO, Active [facility] 25 mg oral tablet Q12H, # 60 2017 Medical tab, 1 Center Refill(s) metoprolol tartrate 25 mg, 1 No Longer [facility] tab, Route: Active 2016 Medical PO, Drug Center form: TAB, Q12H, Dosing Weight 116.364, kg, Start date: 09/11/16 17:15:00 CDT, Duration: 30 day, Stop date: 10/11/16 9:00:00 CDTNotes: (Same as: Lopressor) Acetaminophen 300 MG 1 tab, PO, No Longer [facility] / Codeine Phosphate Q4H, PRN Active 2016 Medical 15 MG Oral Tablet Pain Score Center 4-6, # 12 tab, 0 Refill(s) cephalexin 500 mg 500 mg=1 Active [facility] oral capsule cap, PO, 2017 Medical TID, # 15 Center cap, 0 Refill(s) acetaminophen-codein 1 tab, No Longer [facility] e #3 Route: PO, Active 2016 Medical Drug Form: Center TAB, Dosing Weight 116.364, kg, Q4H, PRN Pain Score 4-6, Start date: 09/11/16 16:59:00 CDT, Duration: 30 day, Stop date: 10/11/16 16:58:00 CDTNotes: Do not exceed 4gm/day of acetaminophe n. (Same as: Tylenol with Codeine # 3) dabigatran etexilate 150 mg=1 On Hold [facility] 150 MG Oral Capsule cap, PO, 2017 Medical [Pradaxa] Q12H, # 180 Center cap, 3 Refill(s) Metformin 850 mg, PO, Active [facility] QAM, 0 2016 Medical Refill(s) Center valsartan 320 mg 320 mg=1 Active [place] oral tablet tab, PO, 2016 Medical Daily, # 90 Center tab, 0 Refill(s) Glipizide 10 MG Oral 10 mg=1 tab, Active [place] Tablet PO, 2016 Medical BID-Before Dexter Meals, # 180 tab, 1 Refill(s) sodium chloride 0.9% 1,000 mL, No Longer [place] 1000 ml INJ 1,000 mL Rate: 50 Active 2016 Medical ml/hr, Dexter Infuse over: 20 hr, Route: IV, Dosing [...] 1 drp, Inactive Ophthalmic Solution Route: 2014 [facility] [Mydriacyl] Operative Eye, Q5Min, Drug form: SOLN, Start date: 03/06/14 11:05:00, Duration: 3 doses or times, Stop date: 03/06/14 11:15:00Note s: (Same As: Mydriacyl, Opticyl, Tropicacyl) canagliflozin 100 MG 100 mg=1 Active Oral Tablet tab, PO, 2014 [facility] [Invokana] Daily, 0 Refill(s) lisinopril 20 mg 20 mg=1 tab, Active oral tablet PO, Daily, 0 2014 [facility] Refill(s) glyBURIDE 5 mg oral 10 mg=2 tab, Active tablet PO, BID, 0 2014 [facility] Refill(s) Aspirin Low Dose 81 PO, Daily, 0 Active mg oral tablet Refill(s) 2014 [facility] Hydrochlorothiazide 1 tab, PO, Active 50 MG / Triamterene Daily, # 30 2014 [facility] 75 MG Oral Tablet tab, 0 Refill(s) Allergies, Adverse Reactions, Alerts Substance Category Reaction Severity Reaction Status Date Comments Source type Reported NKFA Assertion Drug Active [facility] Immunizations No Data Provided for This Section Results Order Name Results Value Reference Date Interpretation Comments Source Range CHEM PANEL Phosphorus 3.1 2.5 - 4.5 09/[address] CHEM PANEL Magnesium 2.6 1.8 - 2.4 09/12 [facility]2016 [facility] ELECTROLYTE AGAP 11.1 10.0 - 09/12 [facility] 20.0 [facility] ELECTROLYTE Potassium 4.1 3.5 - 5.1 09/[address] ELECTROLYTE Chloride Lvl 105 95 - 109 09/12 [facility]2016 [facility] ELECTROLYTE CO2 25 24 - 32 09/[address] ELECTROLYTE eGFR 74 09/12 [facility] Comment: The Medical eGFR is Center calculated using the CKD-EPI formula. In most young, healthy individuals the eGFR will be >90 mL/min/1.73m2 . The eGFR declines with age. An eGFR of 60-89 may be normal in some populations, particularly the elderly, for whom the CKD-EPI formula has not been extensively validated. Use of the eGFR is not recommended in the following populations:< br/>
Lorna viduals with unstable creatinine concentration s, including patients and those with serious co-morbid conditions.<b r/>
Patie nts with extremes in muscle mass or diet.

The data above are obtained from the National Kidney Disease Education Program (NKDEP) which additionally recommends that when the eGFR is used in patients with extremes of body mass index for purposes of drug dosing, the eGFR should be multiplied by the estimated BMI. ELECTROLYTE BUN 16 7 - 22 09/[address] ELECTROLYTE Glucose Lvl 177 70 - 99 09/[address] ELECTROLYTE Calcium Lvl 8.7 8.5 - 10.5 09/12 [facility] S [facility] ELECTROLYTE Creatinine 1.00 0.50 - 09/12 [facility] S Lvl 1.40 /2016 [facility] ELECTROLYTE Sodium Lvl 137 135 - 145 09/12 S [facility] HEMATOLOGY Plt Morph Normal 09/12 [facility] (09/12/16 5:03 AM) [facility] HEMATOLOGY Bands 0.0 0.0 - 11.0 09/12 [facility] HEMATOLOGY Atypical 0.0 <=0.0 % 09/12 [facility] Lymphs [facility] HEMATOLOGY Monocytes 17.0 2.0 - 12.0 09/12 [facility] HEMATOLOGY RBC Morph Normal 09/12 [facility] (09/12/16 5:03 AM) [facility] HEMATOLOGY Eosinophils 1.0 0.0 - 4.0 09/12 [facility] HEMATOLOGY Lymphocytes 27.0 20.0 - 09/12 [place] 40.0 [facility] HEMATOLOGY Segs-Bands # 4.8 1.5 - 8.1 09/12 [facility] HEMATOLOGY Lymphocytes 2.3 1.0 - 5.5 09/12 [place] [facility] HEMATOLOGY Segs 55.0 45.0 - 09/12 [place] 75.0 [facility] HEMATOLOGY Eosinophils 0.1 0.0 - 0.5 09/12 [facility] HEMATOLOGY Monocytes # 1.5 0.0 - 0.8 09/12 [facility] HEMATOLOGY MPV 7.7 7.4 - 10.4 09/12 [facility] HEMATOLOGY MCH 29.8 27.0 - 08 [place] 31.0 [facility] HEMATOLOGY MCV 88.2 80.0 - 09/12 [place] 94.0 [facility] HEMATOLOGY Platelet 177 133 - 450 09/12 [facility] HEMATOLOGY RDW 14.7 11.5 - 08 [place] 14.5 [facility] HEMATOLOGY MCHC 33.8 32.0 - 08/ [place] 36.0 [facility] HEMATOLOGY RBC 3.97 4.70 - 08 [place] 6.10 [facility] HEMATOLOGY Hgb 11.8 14.0 - 08 [place] 18.0 [facility] HEMATOLOGY WBC 8.7 3.7 - 10.4 09/12 [facility] HEMATOLOGY Hct 35.0 42.0 - 09/12 [place] 54.0 [facility] CHEM PANEL eGFR 68 09/11 Result Comment: [facility] eGFR is Center calculated using the CKD-EPI formula. In most young, healthy individuals the eGFR will be >90 mL/min/1.73m2 . The eGFR declines with age. An eGFR of 60-89 may be normal in some populations, particularly the elderly, for whom the CKD-EPI formula has not been extensively validated. Use of the eGFR is not recommended in the following populations:< br/>
Lorna viduals with unstable creatinine concentration s, including patients and those with serious co-morbid conditions.<b r/>
Patie nts with extremes in muscle mass or diet.

The data above are obtained from the National Kidney Disease Education Program (NKDEP) which additionally recommends that when the eGFR is used in patients with extremes of body mass index for purposes of drug dosing, the eGFR should be multiplied by the estimated BMI. CHEM PANEL AGAP 13.8 10.0 - 09/11 [facility] 20.0 [facility] CHEM PANEL Calcium Lvl 9.0 8.5 - 10.5 09/11 [facility] CHEM PANEL CO2 26 24 - 32 09/11 [facility] CHEM PANEL Chloride Lvl 104 95 - 109 09/11 [facility] CHEM PANEL Potassium 3.8 3.5 - 5.1 09/11 [facility] CHEM PANEL Sodium Lvl 140 135 - 145 09/11 [facility] CHEM PANEL Creatinine 1.07 0.50 - 09/11 [facility] Lvl 1.40 /2016 [facility] CHEM PANEL BUN 13 7 - 22 09/11 [facility] CHEM PANEL Glucose Lvl 146 70 - 99 09/11 [facility] BLOOD BANK ABO/Rh O POS 09/11 [facility] RESULTS [facility] BLOOD BANK Antibody Negative 09/11 [facility] RESULTS Scrn (09/11/16 11:12 AM) [facility] CHEM PANEL Phosphorus 3.3 2.5 - 4.5 09/11 [facility] CHEM PANEL Magnesium 1.6 1.8 - 2.4 09/11 [facility] ELECTROLYTE AGAP 9.7 10.0 - 09/11 [facility] S 20.0 [facility] ELECTROLYTE eGFR 69 09/11 [facility] Comment: The Medical eGFR is Center calculated using the CKD-EPI formula. In most young, healthy individuals the eGFR will be >90 mL/min/1.73m2 . The eGFR declines with age. An eGFR of 60-89 may be normal in some populations, particularly the elderly, for whom the CKD-EPI formula has not been extensively validated. Use of the eGFR is not recommended in the following populations:< br/>
Lorna viduals with unstable creatinine concentration s, including patients and those with serious co-morbid conditions.<b r/>
Patie nts with extremes in muscle mass or diet.

The data above are obtained from the National Kidney Disease Education Program (NKDEP) which additionally recommends that when the eGFR is used in patients with extremes of body mass index for purposes of drug dosing, the eGFR should be multiplied by the estimated BMI. ELECTROLYTE CO2 28 24 - 32 09/11 [facility] ELECTROLYTE Chloride Lvl 102 95 - 109 09/11 [facility] ELECTROLYTE Potassium 3.7 3.5 - 5.1 09/11 [facility] ELECTROLYTE Calcium Lvl 8.9 8.5 - 10.5 09/11 [facility] ELECTROLYTE Sodium Lvl 136 135 - 145 09/11 [facility] ELECTROLYTE Creatinine 1.06 0.50 - 09/11 [facility] Lvl 1.40 [facility] ELECTROLYTE BUN 15 7 - 22 09/11 [facility] ELECTROLYTE Glucose Lvl 87 70 - 99 09/11 [facility] HEMATOLOGY Hct 33.1 42.0 - 09/11 [place] 54.0 [facility] HEMATOLOGY Platelet 188 133 - 450 09/11 [facility]2016 [facility] HEMATOLOGY Hgb 11.0 14.0 - 09/11 [facility] 18.0 [facility] HEMATOLOGY MPV 7.5 7.4 - 10.4 09/11 [facility]2016 [facility] HEMATOLOGY MCV 89.2 80.0 - 09/11 [place] 94.0 [facility] HEMATOLOGY MCH 29.5 27.0 - 08 [place] 31.0 /2016 [facility] HEMATOLOGY RBC 3.72 4.70 - 09/11 [place] 6.10 /2016 [facility] HEMATOLOGY RDW 14.7 11.5 - 09/11 [place] 14.5 /2016 [facility] HEMATOLOGY WBC 8.2 3.7 - 10.4 09/11 [facility] HEMATOLOGY MCHC 33.1 32.0 - 09/11 [place] 36.0 /2016 [facility] HEMATOLOGY PT 16.6 12.0 - 09/11 [place] 14.7 /2016 [facility] HEMATOLOGY INR 1.32 0.85 - 09/11 [place] 1.17 /2016 [facility] HEMATOLOGY PTT 43.0 22.9 - 09/11 [place] 35.8 /2016 [facility] HEMATOLOGY Monocytes # 1.6 0.0 - 0.8 09/11 [facility] HEMATOLOGY Eosinophils 0.3 0.0 - 0.5 09/11 [facility] HEMATOLOGY Lymphocytes 1.7 1.0 - 5.5 09/11 [facility] HEMATOLOGY Basophils 0.5 0.0 - 1.0 09/11 [facility] HEMATOLOGY Segs-Bands # 4.5 1.5 - 8.1 09/11 [facility] HEMATOLOGY Eosinophils 3.4 0.0 - 4.0 09/11 [facility] HEMATOLOGY Segs 55.3 45.0 - 09/11 [place] 75.0 /2016 [facility] HEMATOLOGY Lymphocytes 21.2 20.0 - 09/11 [place] 40.0 [facility] HEMATOLOGY Monocytes 19.6 2.0 - 12.0 09/11 [facility] CHEM PANEL Calcium Lvl 9.4 8.5 - 10.5 03/05 [facility] CHEM PANEL CO2 26 24 - 32 03/05 [facility] CHEM PANEL eGFR 40 03/05 <sup>1</sup>R esult [facility] Comment: The eGFR is calculated using the CKD-EPI formula. In most young, healthy individuals the eGFR will be >90 mL/min/1.73m2 . The eGFR declines with age. An eGFR of 60-89 may be normal in some populations, particularly the elderly, for whom the CKD-EPI formula has not been extensively validated. Use of the eGFR is not recommended in the following populations:& lt;br/>
I ndividuals with unstable creatinine concentration s, including patients and those with serious co-morbid conditions.<b r/>
Patie nts with extremes in muscle mass or diet.

The data above are obtained from the National Kidney Disease Education Program (NKDEP) which additionally recommends that when the eGFR is used in patients with extremes of body mass index for purposes of drug dosing, the eGFR should be multiplied by the estimated BMI. CHEM PANEL BUN 45 7 - 22 03/05 [facility] CHEM PANEL Glucose Lvl 100 70 - 99 03/05 <sup>2</sup>I nterpretive [facility] Data: Adult reference range values reflect the clinical guidelines
of the [place] [employer]. CHEM PANEL Potassium 4.4 3.5 - 5.1 03/05 [facility] CHEM PANEL Chloride Lvl 106 95 - 109 03/05 [facility] CHEM PANEL Creatinine 1.7 0.5 - 1.4 03/05 [facility] CHEM PANEL Sodium Lvl 139 135 - 145 03/05 [facility] CHEM PANEL AGAP 11.4 10.0 - 03/05 [facility] 20.0 [facility] HEMATOLOGY MPV 7.3 7.4 - 10.4 03/05 [facility] HEMATOLOGY MCHC 33.9 32.0 - 03/05 [facility] 36.0 /2014 [facility] HEMATOLOGY Platelet 198 133 - 450 03/05 [facility] HEMATOLOGY Hgb 13.7 14.0 - 03/05 [facility] 18.0 [facility] HEMATOLOGY RDW 14.6 11.5 - 03/05 [facility] 14.5 /2014 [facility] HEMATOLOGY Hct 40.4 42.0 - 03/05 [facility] 54.0 /2014 [facility] HEMATOLOGY MCH 31.5 27.0 - 03/05 [facility] 31.0 [facility] HEMATOLOGY MCV 92.8 80.0 - 03/05 [facility] 94.0 /2014 [facility] HEMATOLOGY RBC 4.35 4.70 - 03/05 [facility] 6.10 /2014 [facility] HEMATOLOGY WBC 9.4 3.7 - 10.4 03/05 [facility] HEMATOLOGY Eosinophils 2.4 0.0 - 4.0 03/05 [facility] HEMATOLOGY Monocytes 14.6 2.0 - 12.0 03/05 [facility] HEMATOLOGY Segs-Bands # 5.5 1.5 - 8.1 03/05 [facility] HEMATOLOGY Lymphocytes 24.1 20.0 - 03/05 40.0 [facility] HEMATOLOGY Segs 58.6 45.0 - 03/05 75.0 [facility] HEMATOLOGY Basophils # 0.0 0.0 - 0.2 03/05 [facility] HEMATOLOGY Eosinophils 0.2 0.0 - 0.5 03/05 [facility] HEMATOLOGY Basophils 0.3 0.0 - 1.0 03/05 [facility] HEMATOLOGY Monocytes # 1.4 0.0 - 0.8 03/05 [facility] HEMATOLOGY Lymphocytes 2.3 1.0 - 5.5 03/05 [facility] Pathology Reports No Data Provided for This Section Diagnostic Reports Report Value Date Source Chest 2 views DX EXAM: XR CHEST 2 VIEWS 09/12/2016 [facility] DATE: 09/12/2016 3:00 AM CDT Center INDICATION: Line Placement - Status post PPM/ICD [...] platelike atelectasis. 3. Tiny bilateral pleural effusions. Chest 1 v for Chest one view, 09/11/2016 at 1752 hours 09/11/2016 [facility] Placement DX HISTORY: 71-year-old man with line placement. Center FINDINGS: A single AP semierect view of [...] overlie the right atrium and right ventricle. Consultation Notes No Data Provided for This Section Discharge Summaries No Data Provided for This Section History and Physicals No Data Provided for This Section Vital Signs Vital Sign Value Date Comments Source Temperature Oral (F) 97.9 F 09/12/2016 [facility] Respitory Rate 23 09/12/2016 [facility] Systolic (mm Hg) 143 09/12/2016 [facility] Diastolic (mm Hg) 68 09/12/2016 [facility] Respitory Rate 20 09/12/2016 [facility] Systolic (mm Hg) 148 09/12/2016 [facility] Diastolic (mm Hg) 73 09/12/2016 [facility] Respitory Rate 21 09/12/2016 [facility] Systolic (mm Hg) 129 09/12/2016 [facility] Diastolic (mm Hg) 61 09/12/2016 [facility] Temperature Oral (F) 97.9 F 09/12/2016 [facility] Temperature Oral (F) 97.6 F 09/12/2016 [facility] BMI Calculated 34.79 09/11/2016 [facility] Weight 116.364 09/11/2016 [facility] Height 182.88 cm 09/11/2016 [facility] Systolic (mm Hg) 100 03/06/2014 [facility] Diastolic (mm Hg) 55 03/06/2014 [facility] Respitory Rate 16 03/06/2014 [facility] Diastolic (mm Hg) 75 03/06/2014 [facility] Systolic (mm Hg) 100 03/06/2014 [facility] Respitory Rate 17 03/06/2014 [facility] Diastolic (mm Hg) 49 03/06/2014 [facility] Systolic (mm Hg) 101 03/06/2014 [facility] Respitory Rate 14 03/06/2014 [facility] Heart Rate 97 03/06/2014 [facility] Heart Rate 96 03/05/2014 [facility] BMI Calculated 38.83 03/05/2014 [facility] Weight 126.3 03/05/2014 [facility] Height 180.34 cm 03/05/2014 [facility] Encounters Location Location Encounter Encounter Reason Attending ADM DC Status Source Details Type Number For Provider Date Date Visit [facility] [id number] Jean Carlos 03/06 03/06 [facility] /2014 [facility] Bed[facility] [id number] Eddie 09/11 09/12 [facility] Procedures Procedure Code Date Perfomer Comments Source Arthroplasty of [id number] tight [facility] knee<sup>1</sup> Procedure<sup>2</s [id number] 2right great [facility] up> toe ,i/2 amp 1976 Arthroplasty of [id number] 2013 tight [facility] knee<sup>1</sup> [facility] Procedure<sup>2</s [id number] right great [facility] up> toe ,i/2 [facility] 1976 Assessment and Plan Assessment and Plan Date Source Extracted from:Title: CCU note 09/12/2016 [facility] Author: Eddie Roper MD Date: 09/12/16 The patient was seen and examined with the resident. The relevant lab results, imaging and EKGs were personally reviewed, and the medications were reconciled. I agree with above mentioned assessment and plan. -- Doing well today, send home Extracted from:Title: [facility] [place] Author: Daniel Bergman MD Date: 09/11/16 Patient: LEVI COLEY Age: 71 years Sex: Male : 1945 Associated Diagnoses: None Author: Daniel Bergman MD Basic Information Time Seen: Date and Time 09/11/2016 21:17. Admit information: Symptomatic bradycardia s/p dual chamber PPM . Present at bedside: Family member. Source of history: Self, Family member. Referral source History limitation: None. History of Present Illness Mr. Coley is a 71 year old white man with PMH of atrial fibrillation, sick sinus syndrome, symptomatic bradycardia, DM, CVA (2015, peripheral vision deficits) and HTN who reports to [facility] for PPM inser tion, now s/p dual chamber PPM. Patient was noted to have atrial flutter after procedure and was started on nicardipine drip for rate control. Continues in house for post procedural monitoring and rhythm monitoring. Review of Systems Constitutional: No fever, No chills. Eye: Visual disturbances. Ear/Nose/Mouth/Throat: No sore throat. Respiratory: No shortness of breath, No cough. Cardiovascular: No chest pain, No palpitations, No peripheral edema. Gastrointestinal: No nausea, No abdominal pain. Genitourinary: No change in urine stream. Endocrine: No excessive thirst, No polyuria. Musculoskeletal: No back pain, No claudication. Integumentary: No rash. Neurologic: Alert and oriented X4. Psychiatric: No anxiety, No depression. Health Status Allergies: Allergic Reactions (All) Severity Not Documented NKDA- No reactions were documented. NKFA- No reactions were documented., Allergies (2) Active Reaction NKDA None Documented NKFA None Documented Current medications: (Selected) Inpatient Medications Ordered acetaminophen-codeine #3: 1 tab, PO, Q4H, PRN: Pain Score 4-6 ceFAZolin: 1 gm, IVPB, ABXQ8H diltiazem 25 mg/5 ml VL 125 mg + sodium chloride 0.9% INJ 100 mL: Titrate, IV, Stop: 10/11/16 17:50:00 CDT metoprolol tartrate: 25 mg, 1 tab, PO, Q12H sodium chloride 0.9% 1000 ml INJ 1,000 mL: 50 ml/hr, IV, Stop: 10/11/16 11:03: 00 CDT tramadol 50 mg oral tablet: 50 mg, 1 tab, PO, Q4H, PRN: Pain Score 1-3 valsartan: 320 mg, 2 tab, PO, Daily Suspended Pradaxa: 150 mg, 1 cap, PO, Q12H Prescriptions Prescribed acetaminophen-codeine 300 mg-15 mg oral tablet: 1 tab, PO, Q4H, PRN: Pain Score 4-6, 12 tab, 0 Refill(s) cephalexin 500 mg oral capsule: 500 mg, 1 cap, PO, TID, 15 cap, 0 Refill(s) metoprolol tartrate 25 mg oral tablet: 25 mg, PO, Q12H, 60 tab, 1 Refill(s) tramadol 50 mg oral tablet: 50 mg, PO, Q4H, PRN: Pain Score 1-3, 10 tab, 0 Refill(s) Documented Medications Documented glipiZIDE 10 mg oral tablet: 10 mg, 1 tab, PO, BID-Before Meals, 180 tab, 1 Refill(s) metFORMIN: 500 mg, PO, Bedtime, 0 Refill(s) metFORMIN: 850 mg, PO, QAM, 0 Refill(s) valsartan 320 mg oral tablet: 320 mg, 1 tab, PO, Daily, 90 tab, 0 Refill(s) Suspended Pradaxa 150 mg oral capsule: 150 mg, 1 cap, PO, Q12H, 180 cap, 3 Refill(s), Medications (7) Active Scheduled: (3) ceFAZolin 1 gm VL INJ 1 gm, IVPB, ABXQ8H metoprolol tartrate 25 mg TAB 25 mg 1 tab, PO, Q12H valsartan 160 mg tab 320 mg 2 tab, PO, Daily Continuous: (2) diltiazem 25 mg/5 ml VL 125 mg + sodium chloride 0.9% INJ 100 mL 125 mg 25 mL , IV sodium chloride 0.9% 1000 ml INJ 1,000 mL 1,000 mL, IV, 50 ml/hr PRN: (2) acetaminophen-codeine 300-30 mg TAB 1 tab, PO, Q4H traMADol 50 mg TAB 50 mg 1 tab, PO, Q4H Problem list: All Problems DM - Diabetes mellitus / SNOMED CT 887743193 / Confirmed Hypertension / SNOMED CT 68382617 / Confirmed, Active Problems (2) DM - Diabetes mellitus Hypertension Histories Past Medical History: Active Hypertension (15339327) DM - Diabetes mellitus (479745191) Resolved Atrial fibrillation (9834673957): Resolved. Bradycardia (8338072158): Resolved. CHF (congestive heart failure) (969786499): Resolved. Syncope (3245393392): Resolved. Dizziness (1245273357): Resolved. Chest pain (29916155): Resolved. CVA (cerebral vascular accident) (408501551): Resolved. Edema (358725000): Resolved. Family History: History is unknown. Procedure history: Arthroplasty of knee (79060785). Comments: 03/05/2014 11:13 - Sarahi Adrian LVN 2013 tight Procedure (084568764). Comments: 03/05/2014 11:13 - Sarahi Adrian LVN right great toe ,i/2 amp 1977 Social History Social and Psychosocial Habits Alcohol 03/05/2014 Use: Never Previous treatment: None Employment/School Comment: no comments - 03/05/2014 11:12 - Sarahi Adrian LVN Exercise Comment: none - 03/05/2014 11:12 - Sarahi Adrian LVN Sexual Comment: none - 03/05/2014 11:12 - Sarahi Adrian LVN Substance Abuse 03/05/2014 Use: None Tobacco 09/11/2016 Use: Former smoker Type: Cigars Exposure to Tobacco Smoke None Cigarette Smoking Last 365 Days Yes Reg Smoking Cessation Counseling Yes . Physical Examination Intake and Output I/O Intake Output Balance 09/11/2016 7a-3p 100.00 0.00 100.00 3p-11p 745.00 3950.00 -3205.00 As of 21:16 11p-7a 0.00 0.00 0.00 Totals 845.00 3950.00 -3105.00 09/10/2016 7a-3p 0.00 0.00 0.00 3p-11p 0.00 0.00 0.00 11p-7a 0.00 0.00 0.00 Totals 0.00 0.00 0.00 09/09/2016 7a-3p 0.00 0.00 0.00 3p-11p 0.00 0.00 0.00 11p-7a 0.00 0.00 0.00 Totals 0.00 0.00 0.00 VS/Measurements Vital Signs (last 24 hrs) Last Charted Heart Rate Apical 92 bpm (SEP 11 20:45) SBP H 147mmHg (SEP 11 20:45) DBP 83 mmHg (SEP 11 20:45) SpO2 97 % (SEP 11 20:45) Weight 116.36 kg (SEP 11 11:) Height 182.88 cm (SEP 11 11:02) BMI 34.79 (SEP 11 11:02) , Measurements from flowsheet : Measurements 09/11/2016 11:02 Heparin Dosing Weight (kg) 93.11 09/11/2016 11:02 Height 182.88 cm Height Collection Method Stated Weight 116.364 kg Dosing Weight Difference Percent -7.867 % Dosing Weight Collection Method Measured Body Surface Area 2.4313 m2 Body Mass Index 34.79 m2 General: Awake and alert, resting comfortably HEENT: NC/AT, no scleral icterus, moist mucus membranes, PERRL Neck: Supple, NT, No LAD Cardio: Regular rate and rhythm, no murmurs, +s1s2, no gallops. Extremities with good peripheral pulsations. No JVD Chest: Pressure dressing in place over PPM insertion site, no active bleeding noted Pulm: Clear to auscultation bilaterally, no wheezes or crackles Abdomen: Normal bowel sounds, soft, non-tender, non-distended Extremities: No edema. No deformities/amputations Skin: Warm and well perfused, no rashes Neuro: Alert and oriented, no focal deficits Review / Management Results review: Labs (Last four charted values) WBC 8.2 (SEP 11) Hgb L 11.0 (SEP 11) Hct L 33.1 (SEP 11) Plt 188 (SEP 11) Na 140 (SEP 11) 136 (SEP 11) K 3.8 (SEP 11) 3.7 (SEP 11) CO2 26 (SEP 11) 28 (SEP 11) Cl 104 (SEP 11) 102 (SEP 11) Cr 1.07 (SEP 11) 1.06 (SEP 11) BUN 13 (SEP 11) 15 (SEP 11) Glucose Random H 146 (SEP 11) 87 (SEP 11) Mg L 1.6 (SEP 11) Phos 3.3 (SEP 11) Ca 9.0 (SEP 11) 8.9 (SEP 11) PT H 16.6 (SEP 11) INR H 1.32 (SEP 11) PTT H 43.0 (SEP 11) . Lines and Tubes: Lines, Tubes, and Drains: 09/11/2016 20:15 Peripheral Lines: Antecubital Left 20 gauge Over the needle catheter 09/11/2016 17:30 Indwelling Urinary Catheter: Urethral 14 Occitan . Impression and Plan Assessment: Mr. Coley is a 71 year old white male with PMH of atrial fibrillation, sick sinus syndrome, symptomatic bradycardia, DM, CVA (2014, peripheral vision deficits) and HTN who reports to [facility] for PPM inse rtion, now s/p dual chamber PPM, noted to have atrial flutter after procedure, now weaning nicardipine drip. Plan: Neuro: - Pain management with tylenol and tylenol #3 PRN - Fall precautions CV: Symptomatic Bradycardia, s/p DC-PPM insertion - s/p dual chamber PPM - will monitor overnight - 2-view CXR tomorrow morning if possible. - Device interrogation tomorrow morning. - Hold anticoagulants x 72 hours. - Antibiotics: Cephalexin 500mg po x5 days. - Follow-up in 2 weeks with primary Casting Sorter. A-flutter - Continue to wean nicardipine gtt as necessary - Tele Respiratory: - no active issues GI: - Resume cardiac diet Renal/Lytes/: - Baseline Cr noted as 1.07 - Will encourage PO intake - Electrolytes and Replacements PRN - Camilo not indicated at this time ID: Cephalexin 500mg 5 days per note, Day 02/12 Endocrine: - Monitor glucose Heme: - No active issues Lines/Camilo: DC camilo Consults: None Diet: Cardiac DVT PPx: holding for 72 hours Code Status: Full Dispo: Home tomorrow To be discussed on rounds tomorrow Daniel Bergman MD Resident Physician Department of Internal Medicine [facility] CCU/CIMU Daily Patient Safety Checklist Yes No CAD/CHF/PCI Requirements: 1. ASA x KS/CAD/PCI/CABG 2. DELANEY Inhibitor or ARB x CHF/DIABETES 3. Beta Rachid x POST KS/CHF/PCI 4. Statin x CAD/PCI/CABG 5. DAPT post PCI? x 6. Renal Protection Fluid Protocol Post-PCI? x Mechanical Ventilation: 1. Restraints assessed/reordered? x 2. PUD ppx? x Blood Stream Infection Prevention: 1. Central Line necessity addressed? x _ vasoactive agents, _ TPN, _loss of venous access CAUTI Prevention: 1. Camilo necessity addressed? x _ complete bedrest, _ urinary retention,_ DVT Prevention: 1. VTE Advisor Completed on admission and DVT ppx? x Nutrition: 1. Enteral Feeding within 48hr? x Blood Glucose Control: 1. 60mg/dl < BG< 200mg/dl? x Discharge Plannin. PT/OT? x 2. Cardiac Rehab? x 3. Case Management/Social Work Consult? x Diagnosis Bradycardia (TSG08-PU R00.1, Working, Medical). Atrial flutter (LOI54-XM I48.92, Working, Medical). DM - Diabetes mellitus (CSV58-KU E13.9, Working, Medical). CVA (cerebral vascular accident) (DUL86-XG I63.9, Working, Medical). Hypertension (QHD59-HV I10, Working, Medical). Addendum by Eddie Roper MD on 09/12/2016 10:39 The patient was seen and examined with the resident. The relevant lab results, imaging and EKGs were personally reviewed, and the medications were reconciled. I agree with above mentioned assessment and plan. Plan of Care No Data Provided for This Section Social History Social History Date Source Social History TypeResponse 03/05/2014 [facility] Substance Abuse Use: None Sexual 1 Exercise 2 Employment/School 3 Alcohol Use: Never, Previous treatment: None Smoking Status Former smoker, Type: Cigars, Exposure to Tobacco Smoke None, Cigarette Smoking Last 365 Days Yes, Reg Smoking Cessation Counseling Yes [id number] comments Social History TypeResponse 03/05/2014 [facility] Substance Abuse Use: None. Sexual 1 Exercise 2 Employment/School 3 Alcohol Never, Previous treatment: None. Smoking Status Former smoker; Type: Cigars; Exposure to Tobacco Smoke None; Cigarette Smoking Last 365 Days Yes; Reg Smoking Cessation Counseling Yes [id number] comments Family History No Data Provided for This Section Advance Directives No Data Provided for This Section Functional Status No Data Provided for This Section
--- OUTSIDE RECORDS SUMMARY | 2018-08-17 18:39 | XMS REPORT ---
:[address] [facility] Address [address] [place] [address] [address] [place] [address] Care Team Providers Name Role Phone ABIEL [...] (BEAKER) (test 270 mg/dL 70-110 TESTED AT [address] rjqv=7679) [facility] [address] POCT-GLUCOSE [id number] 08:58:00 Test Item Value Reference Range Comments POC-GLUCOSE METER (BEAKER) 147 mg/dL 70-110 TESTED AT [address] (test xezf=1812) [facility] [address] CBC W/PLT COUNT & AUTO [id number] 08:53:00 Test Item Value Reference Range Comments WHITE BLOOD CELL COUNT (BEAKER) (test ilbq=403) 5.6 K/ L 3.5-10.5 RED BLOOD CELL COUNT (BEAKER) (test clpi=150) 4.28 M/ L 4.63-6.08 HEMOGLOBIN (BEAKER) (test doyc=195) 11.7 GM/DL 13.7-17.5 HEMATOCRIT (BEAKER) (test rscm=485) 37.4 % 40.1-51.0 MEAN CORPUSCULAR VOLUME (BEAKER) (test hvjm=370) 87.4 fL 79.0-92.2 MEAN CORPUSCULAR HEMOGLOBIN (BEAKER) (test 27.3 pg 25.7-32.2 diut=086) MEAN CORPUSCULAR HEMOGLOBIN CONC (BEAKER) (test 31.3 GM/DL 32.3-36.5 erlk=325) RED CELL DISTRIBUTION WIDTH (BEAKER) (test 16.2 % 11.6-14.4 bkvi=143) PLATELET COUNT (BEAKER) (test xfmv=713) 100 K/CU MM 150-450 MEAN PLATELET VOLUME (BEAKER) (test rjwv=520) 10.7 fL 9.4-12.4 NUCLEATED RED BLOOD CELLS (BEAKER) (test 0 /100 WBC 0-0 abcw=557) NEUTROPHILS RELATIVE PERCENT (BEAKER) (test 50 % eiol=261) LYMPHOCYTES RELATIVE PERCENT (BEAKER) (test 30 % izwe=474) MONOCYTES RELATIVE PERCENT (BEAKER) (test 18 % zvpd=512) EOSINOPHILS RELATIVE PERCENT (BEAKER) (test 2 % cakb=513) BASOPHILS RELATIVE PERCENT (BEAKER) (test 1 % ixfr=106) NEUTROPHILS ABSOLUTE COUNT (BEAKER) (test 2.77 K/ L 1.78-5.38 vjcx=429) LYMPHOCYTES ABSOLUTE COUNT (BEAKER) (test 1.66 K/ L 1.32-3.57 gdbl=675) MONOCYTES ABSOLUTE COUNT (BEAKER) (test 1.02 K/ L 0.30-0.82 bdgi=136) EOSINOPHILS ABSOLUTE COUNT (BEAKER) (test 0.09 K/ L 0.04-0.54 ttfx=573) BASOPHILS ABSOLUTE COUNT (BEAKER) (test 0.03 K/ L 0.01-0.08 igkq=483) IMMATURE GRANULOCYTES-RELATIVE PERCENT (BEAKER) 0 % 0-1 (test uhgn=4429) [id number] 08:05:00 Test Item Value Reference Range Comments MAGNESIUM (BEAKER) (test qyqx=817) 1.5 mg/dL 1.6-2.6 BASIC METABOLIC [id number] 08:05:00 Test Item Value Reference Range Comments SODIUM (BEAKER) (test 137 meq/L 136-145 bosr=140) POTASSIUM (BEAKER) (test 3.3 meq/L 3.5-5.1 gdyg=460) CHLORIDE (BEAKER) (test 98 meq/L 98-107 kpta=402) CO2 (BEAKER) (test 27 meq/L 22-29 oart=581) BLOOD UREA NITROGEN 30 mg/dL 7-21 (BEAKER) (test zfwm=028) CREATININE (BEAKER) (test 1.59 mg/dL 0.57-1.25 srfv=419) GLUCOSE RANDOM (BEAKER) 116 mg/dL 70-105 (test kgyc=016) CALCIUM (BEAKER) (test 9.0 mg/dL 8.4-10.2 kuib=959) EGFR (BEAKER) (test 43 mL/min/1.73 sq m ESTIMATED GFR IS NOT wslq=8677) ACCURATE CREATININE CLEARANCE IN PREDICTING GLOMERULAR FILTRATION RATE. ESTIMATED GFR IS NOT APPLICABLE FOR DIALYSIS PATIENTS. POCT-GLUCOSE [id number] 21:57:00 Test Item Value Reference Range Comments POC-GLUCOSE METER (BEAKER) 219 mg/dL 70-110 TESTED AT [address] (test llby=6096) [facility] [address] POCT-GLUCOSE [id number] 17:24:00 Test Item Value Reference Range Comments POC-GLUCOSE METER (BEAKER) 247 mg/dL 70-110 TESTED AT [address] (test wnlz=4322) [facility] [address] CBC W/PLT COUNT & AUTO [id number] 13:56:00 Test Item Value Reference Range Comments WHITE BLOOD CELL COUNT (BEAKER) (test snag=042) 6.4 K/ L 3.5-10.5 RED BLOOD CELL COUNT (BEAKER) (test rkqi=498) 4.04 M/ L 4.63-6.08 HEMOGLOBIN (BEAKER) (test lnag=500) 10.9 GM/DL 13.7-17.5 HEMATOCRIT (BEAKER) (test vryu=051) 35.4 % 40.1-51.0 MEAN CORPUSCULAR VOLUME (BEAKER) (test cvjm=633) 87.6 fL 79.0-92.2 MEAN CORPUSCULAR HEMOGLOBIN (BEAKER) (test 27.0 pg 25.7-32.2 ucni=564) MEAN CORPUSCULAR HEMOGLOBIN CONC (BEAKER) (test 30.8 GM/DL 32.3-36.5 zahd=038) RED CELL DISTRIBUTION WIDTH (BEAKER) (test 16.1 % 11.6-14.4 fmve=355) PLATELET COUNT (BEAKER) (test aydq=775) 98 K/CU MM 150-450 MEAN PLATELET VOLUME (BEAKER) (test ndst=104) 10.5 fL 9.4-12.4 NUCLEATED RED BLOOD CELLS (BEAKER) (test 0 /100 WBC 0-0 ckuz=284) IMMATURE GRANULOCYTES-RELATIVE PERCENT (BEAKER) 0 % 0-1 (test kokn=8223) (MANUAL DIFFERENTIAL)2017-02-07 13:56:00 Test Item Value Reference Range Comments NEUTROPHILS - REL (DIFF) (BEAKER) (test jidi=6500) 52 % LYMPHOCYTES - REL (DIFF) (BEAKER) (test eveu=2535) 26 % MONOCYTES - REL (DIFF) (BEAKER) (test jueb=7449) 14 % EOSINOPHILS - REL (DIFF) (BEAKER) (test ausr=7436) 6 % BASOPHILS - REL (DIFF) (BEAKER) (test pesb=1893) 0 % BANDS - REL (DIFF) (BEAKER) (test swrk=7447) 1 % 0-10 ATYPICAL LYMPHOCYTE - REL (DIFF) (BEAKER) (test 1 % 0-0 yfar=313) NEUTROPHILS - ABS (DIFF) (BEAKER) (test ejku=4009) 3.33 K/ L 1.80-8.00 LYMPHOCYTES - ABS (DIFF) (BEAKER) (test scsx=0142) 1.66 K/ L 1.48-4.50 MONOCYTES - ABS (DIFF) (BEAKER) (test zbsg=6140) 0.90 K/ L 0.00-1.30 EOSINOPHILS - ABS (DIFF) (BEAKER) (test yeut=6742) 0.38 K/ L 0.00-0.50 BASOPHILS - ABS (DIFF) (BEAKER) (test lvzx=0805) 0.00 K/ L 0.00-0.20 BANDS-ABS (DIFF) (BEAKER) (test rtae=5670) 0.1 K/ L 0.0-0.8 ATYPICAL LYMPHOCYTES - ABS (DIFF) (BEAKER) (test 0.06 K/ L 0.00-0.00 ughz=476) TOTAL COUNTED (BEAKER) (test bezl=8758) 100 BANDS + SEGMENTED NEUTROPHILS (BEAKER) (test 3.39 yasa=2416) WBC MORPHOLOGY (BEAKER) (test jrsd=117) Normal PLT MORPHOLOGY (BEAKER) (test ungn=995) Normal RBC MORPHOLOGY (BEAKER) (test ukrr=621) Normal POCT-GLUCOSE [id number] 13:22:00 Test Item Value Reference Range Comments POC-GLUCOSE METER (BEAKER) 226 mg/dL 70-110 TESTED AT [address] (test amur=6060) [place] [id number] POCT-GLUCOSE [id number] 07:59:00 Test Item Value Reference Range Comments POC-GLUCOSE METER (BEAKER) 216 mg/dL 70-110 TESTED AT [address] (test mbjl=1491) [place] [address] [id number] 05:18:00 Test Item Value Reference Range Comments MAGNESIUM (BEAKER) (test qzac=364) 1.7 mg/dL 1.6-2.6 BASIC METABOLIC [id number] 05:18:00 Test Item Value Reference Range Comments SODIUM (BEAKER) (test 136 meq/L 136-145 fpcq=788) POTASSIUM (BEAKER) (test 3.4 meq/L 3.5-5.1 mojo=430) CHLORIDE (BEAKER) (test 101 meq/L 98-107 bzle=666) CO2 (BEAKER) (test 26 meq/L 22-29 coye=413) BLOOD UREA NITROGEN 25 mg/dL 7-21 (BEAKER) (test wamn=186) CREATININE (BEAKER) (test 1.50 mg/dL 0.57-1.25 hnru=590) GLUCOSE RANDOM (BEAKER) 216 mg/dL 70-105 (test fgcn=820) CALCIUM (BEAKER) (test 8.5 mg/dL 8.4-10.2 wagg=955) EGFR (BEAKER) (test 46 mL/min/1.73 sq m ESTIMATED GFR IS NOT zelm=1790) ACCURATE CREATININE CLEARANCE IN PREDICTING GLOMERULAR FILTRATION RATE. ESTIMATED GFR IS NOT APPLICABLE FOR DIALYSIS PATIENTS. POCT-GLUCOSE [id number] 20:58:00 Test Item Value Reference Range Comments POC-GLUCOSE METER (BEAKER) 260 mg/dL 70-110 TESTED AT [address] (test iaau=2481) [place] [address] POCT-GLUCOSE [id number] 17:32:00 Test Item Value Reference Range Comments POC-GLUCOSE METER (BEAKER) 237 mg/dL 70-110 TESTED AT [address] (test kvgx=7392) [place] [address] POCT-GLUCOSE [id number] 16:21:00 Test Item Value Reference Range Comments POC-GLUCOSE METER (BEAKER) 223 mg/dL 70-[address] [facility] [address] [facility] (test fifp=1516) [facility] [address] CBC W/PLT COUNT & AUTO [id number] 14:22:00 Test Item Value Reference Range Comments WHITE BLOOD CELL COUNT (BEAKER) (test mymr=419) 6.5 K/ L 3.5-10.5 RED BLOOD CELL COUNT (BEAKER) (test exld=563) 4.17 M/ L 4.63-6.08 HEMOGLOBIN (BEAKER) (test hnhv=469) 11.3 GM/DL 13.7-17.5 HEMATOCRIT (BEAKER) (test pnfh=094) 36.8 % 40.1-51.0 MEAN CORPUSCULAR VOLUME (BEAKER) (test lyzo=612) 88.2 fL 79.0-92.2 MEAN CORPUSCULAR HEMOGLOBIN (BEAKER) (test 27.1 pg 25.7-32.2 qfcw=425) MEAN CORPUSCULAR HEMOGLOBIN CONC (BEAKER) (test 30.7 GM/DL 32.3-36.5 iumj=223) RED CELL DISTRIBUTION WIDTH (BEAKER) (test 16.1 % 11.6-14.4 ypeo=175) PLATELET COUNT (BEAKER) (test jyfk=526) 116 K/CU MM 150-450 MEAN PLATELET VOLUME (BEAKER) (test gvew=285) 10.7 fL 9.4-12.4 NUCLEATED RED BLOOD CELLS (BEAKER) (test 0 /100 WBC 0-0 qcjf=342) NEUTROPHILS RELATIVE PERCENT (BEAKER) (test 48 % agbi=379) LYMPHOCYTES RELATIVE PERCENT (BEAKER) (test 30 % jajc=414) MONOCYTES RELATIVE PERCENT (BEAKER) (test 20 % fsxb=774) EOSINOPHILS RELATIVE PERCENT (BEAKER) (test 1 % tsss=583) BASOPHILS RELATIVE PERCENT (BEAKER) (test 0 % auhl=752) NEUTROPHILS ABSOLUTE COUNT (BEAKER) (test 3.09 K/ L 1.78-5.38 fvxs=681) LYMPHOCYTES ABSOLUTE COUNT (BEAKER) (test 1.95 K/ L 1.32-3.57 gbad=835) MONOCYTES ABSOLUTE COUNT (BEAKER) (test 1.32 K/ L 0.30-0.82 kyeg=565) EOSINOPHILS ABSOLUTE COUNT (BEAKER) (test 0.07 K/ L 0.04-0.54 gehz=933) BASOPHILS ABSOLUTE COUNT (BEAKER) (test 0.02 K/ L 0.01-0.08 jqhj=621) IMMATURE GRANULOCYTES-RELATIVE PERCENT (BEAKER) 0 % 0-1 (test dbqv=3638) (MANUAL DIFFERENTIAL)2017-02-06 14:22:00 Test Item Value Reference Range Comments TOTAL COUNTED (BEAKER) (test esly=9630) WBC MORPHOLOGY (BEAKER) (test xmuv=603) Normal PLT MORPHOLOGY (BEAKER) (test ufty=123) Normal RBC MORPHOLOGY (BEAKER) (test ocgq=254) Normal POCT-GLUCOSE [id number] 11:52:00 Test Item Value Reference Range Comments POC-GLUCOSE METER (BEAKER) 143 mg/dL 70-110 TESTED AT [address] (test fygj=4754) [place] [id number] POCT-GLUCOSE [id number] 08:04:00 Test Item Value Reference Range Comments POC-GLUCOSE METER (BEAKER) 86 mg/dL 70-110 TESTED AT [address] (test efns=9085) [place] [address] [id number] 06:07:00 Test Item Value Reference Range Comments MAGNESIUM (BEAKER) (test 1.6 mg/dL 1.6-2.6 Specimen slightly hemolyzed wypq=751) BASIC METABOLIC [id number] 06:07:00 Test Item Value Reference Range Comments SODIUM (BEAKER) (test 135 meq/L 136-145 nspr=329) POTASSIUM (BEAKER) (test 3.7 meq/L 3.5-5.1 Specimen slightly fjoy=873) hemolyzed CHLORIDE (BEAKER) (test 104 meq/L 98-107 kvcg=648) CO2 (BEAKER) (test 22 meq/L 22-29 nnat=637) BLOOD UREA NITROGEN 27 mg/dL 7-21 (BEAKER) (test hvuy=664) CREATININE (BEAKER) (test 1.32 mg/dL 0.57-1.25 Specimen slightly kmph=870) hemolyzed GLUCOSE RANDOM (BEAKER) 103 mg/dL 70-105 (test afko=690) CALCIUM (BEAKER) (test 8.4 mg/dL 8.4-10.2 gaum=367) EGFR (BEAKER) (test 53 mL/min/1.73 sq m ESTIMATED GFR IS NOT unxv=3919) ACCURATE CREATININE CLEARANCE IN PREDICTING GLOMERULAR FILTRATION RATE. ESTIMATED GFR IS NOT APPLICABLE FOR DIALYSIS PATIENTS. POCT-GLUCOSE [id number] 20:42:00 Test Item Value Reference Range Comments POC-GLUCOSE METER (BEAKER) 338 mg/dL 70-[address] [facility] [address] [facility] (test pheg=4704) [facility] [address] POCT-GLUCOSE [id number] 17:41:00 Test Item Value Reference Range Comments POC-GLUCOSE METER (BEAKER) 303 mg/dL 70-110 TESTED AT [address] (test plnw=5693) [facility] [address] RAD, CHEST, 1 VIEW, NON [id number] 14:44:00Reason for exam:->shortness of breath s/p RHCShould this be performed at the bedside?->YesFINAL REPORT CLINICAL HISTORY: shortness of breath s/p RHC TECHNIQUE : 1 viewof the chest. COMPARISON: 01/31/2017 IMPRESSION: Trace bilateral pleural effusions are again seen with left basilar atelectasis. The cardiomediastinal silhouette is magnified by technique with a pacemaker. Signed : Barbara Espinoza MDReport Verified Date/Time: 02/05/2017 14:44:20 Reading Location: [address] Consult Reading Room CBC W/PLT COUNT & AUTO [id number] 14:37:00 Test Item Value Reference Range Comments WHITE BLOOD CELL COUNT (BEAKER) (test ofsi=326) 7.1 K/ L 3.5-10.5 RED BLOOD CELL COUNT (BEAKER) (test dxop=993) 4.34 M/ L 4.63-6.08 HEMOGLOBIN (BEAKER) (test cefb=540) 11.8 GM/DL 13.7-17.5 HEMATOCRIT (BEAKER) (test enoi=702) 38.1 % 40.1-51.0 MEAN CORPUSCULAR VOLUME (BEAKER) (test pkgo=132) 87.8 fL 79.0-92.2 MEAN CORPUSCULAR HEMOGLOBIN (BEAKER) (test 27.2 pg 25.7-32.2 rohk=495) MEAN CORPUSCULAR HEMOGLOBIN CONC (BEAKER) (test 31.0 GM/DL 32.3-36.5 mlci=648) RED CELL DISTRIBUTION WIDTH (BEAKER) (test 16.1 % 11.6-14.4 oklk=845) PLATELET COUNT (BEAKER) (test cpin=629) 112 K/CU MM 150-450 MEAN PLATELET VOLUME (BEAKER) (test atty=250) 10.6 fL 9.4-12.4 NUCLEATED RED BLOOD CELLS (BEAKER) (test 0 /100 WBC 0-0 isax=015) NEUTROPHILS RELATIVE PERCENT (BEAKER) (test 55 % rynq=911) LYMPHOCYTES RELATIVE PERCENT (BEAKER) (test 20 % cysy=252) MONOCYTES RELATIVE PERCENT (BEAKER) (test 23 % lkfk=894) EOSINOPHILS RELATIVE PERCENT (BEAKER) (test 1 % qcwb=246) BASOPHILS RELATIVE PERCENT (BEAKER) (test 0 % awld=651) NEUTROPHILS ABSOLUTE COUNT (BEAKER) (test 3.91 K/ L 1.78-5.38 znbc=017) LYMPHOCYTES ABSOLUTE COUNT (BEAKER) (test 1.43 K/ L 1.32-3.57 nnby=348) MONOCYTES ABSOLUTE COUNT (BEAKER) (test 1.67 K/ L 0.30-0.82 feil=320) EOSINOPHILS ABSOLUTE COUNT (BEAKER) (test 0.08 K/ L 0.04-0.54 mqni=879) BASOPHILS ABSOLUTE COUNT (BEAKER) (test 0.03 K/ L 0.01-0.08 eyml=521) IMMATURE GRANULOCYTES-RELATIVE PERCENT (BEAKER) 0 % 0-1 (test gzsb=9141) (MANUAL DIFFERENTIAL)2017-02-05 14:37:00 Test Item Value Reference Range Comments TOTAL COUNTED (BEAKER) (test ivdk=1724) WBC MORPHOLOGY (BEAKER) (test mspb=136) Normal PLT MORPHOLOGY (BEAKER) (test avmb=848) Normal RBC MORPHOLOGY (BEAKER) (test yktw=873) Normal POCT-GLUCOSE [id number] 12:08:00 Test Item Value Reference Range Comments POC-GLUCOSE METER (BEAKER) 197 mg/dL 70-110 TESTED AT [address] (test jlua=2284) [facility] [address] POCT-GLUCOSE [id number] 07:55:00 Test Item Value Reference Range Comments POC-GLUCOSE METER (BEAKER) 149 mg/dL 70-110 TESTED AT [address] (test lopn=2153) [place] [address] [id number] 05:21:00 Test Item Value Reference Range Comments MAGNESIUM (BEAKER) (test dmfo=684) 1.4 mg/dL 1.6-2.6 BASIC METABOLIC [id number] 05:21:00 Test Item Value Reference Range Comments SODIUM (BEAKER) (test 139 meq/L 136-145 dzeq=985) POTASSIUM (BEAKER) (test 3.7 meq/L 3.5-5.1 jyjk=648) CHLORIDE (BEAKER) (test 107 meq/L 98-107 thlu=176) CO2 (BEAKER) (test 23 meq/L 22-29 netv=428) BLOOD UREA NITROGEN 24 mg/dL 7-21 (BEAKER) (test qwek=883) CREATININE (BEAKER) (test 1.31 mg/dL 0.57-1.25 jeuz=244) GLUCOSE RANDOM (BEAKER) 155 mg/dL 70-105 (test iier=040) CALCIUM (BEAKER) (test 8.5 mg/dL 8.4-10.2 juxu=956) EGFR (BEAKER) (test 54 mL/min/1.73 sq m ESTIMATED GFR IS NOT nsez=1937) ACCURATE CREATININE CLEARANCE IN PREDICTING GLOMERULAR FILTRATION RATE. ESTIMATED GFR IS NOT APPLICABLE FOR DIALYSIS PATIENTS. POCT-GLUCOSE [id number] 21:03:00 Test Item Value Reference Range Comments POC-GLUCOSE METER (BEAKER) 296 mg/dL 70-110 TESTED AT [address] (test wtjd=1918) [facility] [address] POCT-GLUCOSE [id number] 17:18:00 Test Item Value Reference Range Comments POC-GLUCOSE METER (BEAKER) 275 mg/dL 70-110 TESTED AT [address] (test mfgj=2311) [facility] [address] CBC W/PLT COUNT & AUTO [id number] 15:04:00 Test Item Value Reference Range Comments WHITE BLOOD CELL COUNT (BEAKER) (test xoqq=077) 7.2 K/ L 3.5-10.5 RED BLOOD CELL COUNT (BEAKER) (test fsiz=548) 4.24 M/ L 4.63-6.08 HEMOGLOBIN (BEAKER) (test jfoo=521) 11.5 GM/DL 13.7-17.5 HEMATOCRIT (BEAKER) (test mzbn=186) 37.6 % 40.1-51.0 MEAN CORPUSCULAR VOLUME (BEAKER) (test evga=565) 88.7 fL 79.0-92.2 MEAN CORPUSCULAR HEMOGLOBIN (BEAKER) (test 27.1 pg 25.7-32.2 attv=486) MEAN CORPUSCULAR HEMOGLOBIN CONC (BEAKER) (test 30.6 GM/DL 32.3-36.5 skwg=610) RED CELL DISTRIBUTION WIDTH (BEAKER) (test 16.3 % 11.6-14.4 chxk=598) PLATELET COUNT (BEAKER) (test wbhn=616) 116 K/CU MM 150-450 MEAN PLATELET VOLUME (BEAKER) (test fhts=341) 10.6 fL 9.4-12.4 NUCLEATED RED BLOOD CELLS (BEAKER) (test 0 /100 WBC 0-0 rnpu=391) NEUTROPHILS RELATIVE PERCENT (BEAKER) (test 51 % vajl=437) LYMPHOCYTES RELATIVE PERCENT (BEAKER) (test 22 % boow=444) MONOCYTES RELATIVE PERCENT (BEAKER) (test 24 % buad=544) EOSINOPHILS RELATIVE PERCENT (BEAKER) (test 1 % zomw=739) BASOPHILS RELATIVE PERCENT (BEAKER) (test 0 % mjtv=288) NEUTROPHILS ABSOLUTE COUNT (BEAKER) (test 3.71 K/ L 1.78-5.38 drvf=112) LYMPHOCYTES ABSOLUTE COUNT (BEAKER) (test 1.62 K/ L 1.32-3.57 zgra=021) MONOCYTES ABSOLUTE COUNT (BEAKER) (test 1.74 K/ L 0.30-0.82 efdq=028) EOSINOPHILS ABSOLUTE COUNT (BEAKER) (test 0.08 K/ L 0.04-0.54 ninv=312) BASOPHILS ABSOLUTE COUNT (BEAKER) (test 0.03 K/ L 0.01-0.08 znzx=216) IMMATURE GRANULOCYTES-RELATIVE PERCENT (BEAKER) 1 % 0-1 (test jgtc=4751) (MANUAL DIFFERENTIAL)2017-02-04 15:04:00 Test Item Value Reference Range Comments TOTAL COUNTED (BEAKER) (test hbus=3571) POCT-GLUCOSE [id number] 12:17:00 Test Item Value Reference Range Comments POC-GLUCOSE METER (BEAKER) 208 mg/dL 70-110 TESTED AT [address] (test jeqp=3996) [facility] [address] POCT-GLUCOSE [id number] 08:57:00 Test Item Value Reference Range Comments POC-GLUCOSE METER (BEAKER) 230 mg/dL 70-110 TESTED AT [address] (test iore=8246) [place] [id number] 05:56:00 Test Item Value Reference Range Comments MAGNESIUM (BEAKER) (test xqpr=599) 1.6 mg/dL 1.6-2.6 BASIC METABOLIC [id number] 05:56:00 Test Item Value Reference Range Comments SODIUM (BEAKER) (test 137 meq/L 136-145 xmnj=686) POTASSIUM (BEAKER) (test 4.2 meq/L 3.5-5.1 kmqv=707) CHLORIDE (BEAKER) (test 108 meq/L 98-107 khoa=548) CO2 (BEAKER) (test 19 meq/L 22-29 lhjm=204) BLOOD UREA NITROGEN 28 mg/dL 7-21 (BEAKER) (test qdov=328) CREATININE (BEAKER) (test 1.35 mg/dL 0.57-1.25 fgxr=841) GLUCOSE RANDOM (BEAKER) 271 mg/dL 70-105 (test kngd=417) CALCIUM (BEAKER) (test 8.4 mg/dL 8.4-10.2 vdje=681) EGFR (BEAKER) (test 52 mL/min/1.73 sq m ESTIMATED GFR IS NOT huuo=7184) ACCURATE CREATININE CLEARANCE IN PREDICTING GLOMERULAR FILTRATION RATE. ESTIMATED GFR IS NOT APPLICABLE FOR DIALYSIS PATIENTS. POCT-GLUCOSE [id number] 21:20:00 Test Item Value Reference Range Comments POC-GLUCOSE METER (BEAKER) 329 mg/dL 70-110 Notified JUDSON WATTS/TESTED AT [facility] (test bzte=7084) [facility] [address] [facility] [address] POCT-GLUCOSE [id number] 18:14:00 Test Item Value Reference Range Comments POC-GLUCOSE METER (BEAKER) 299 mg/dL 70-[address] [facility] [address] (test wrtu=1133) [facility] [address] CBC W/PLT COUNT & AUTO [id number] 15:17:00 Test Item Value Reference Range Comments WHITE BLOOD CELL COUNT (BEAKER) (test latx=209) 8.0 K/ L 3.5-10.5 RED BLOOD CELL COUNT (BEAKER) (test apui=683) 4.25 M/ L 4.63-6.08 HEMOGLOBIN (BEAKER) (test wdvj=517) 11.7 GM/DL 13.7-17.5 HEMATOCRIT (BEAKER) (test sxkh=871) 37.9 % 40.1-51.0 MEAN CORPUSCULAR VOLUME (BEAKER) (test bmbi=053) 89.2 fL 79.0-92.2 MEAN CORPUSCULAR HEMOGLOBIN (BEAKER) (test 27.5 pg 25.7-32.2 zeuz=695) MEAN CORPUSCULAR HEMOGLOBIN CONC (BEAKER) (test 30.9 GM/DL 32.3-36.5 ohsi=926) RED CELL DISTRIBUTION WIDTH (BEAKER) (test 16.1 % 11.6-14.4 uxsm=274) PLATELET COUNT (BEAKER) (test qegx=666) 139 K/CU MM 150-450 MEAN PLATELET VOLUME (BEAKER) (test zxav=465) 10.4 fL 9.4-12.4 NUCLEATED RED BLOOD CELLS (BEAKER) (test 0 /100 WBC 0-0 amhu=650) NEUTROPHILS RELATIVE PERCENT (BEAKER) (test 52 % ibya=896) LYMPHOCYTES RELATIVE PERCENT (BEAKER) (test 24 % yzyf=498) MONOCYTES RELATIVE PERCENT (BEAKER) (test 22 % efwo=967) EOSINOPHILS RELATIVE PERCENT (BEAKER) (test 2 % sxdg=100) BASOPHILS RELATIVE PERCENT (BEAKER) (test 0 % hinb=872) NEUTROPHILS ABSOLUTE COUNT (BEAKER) (test 4.11 K/ L 1.78-5.38 tklq=311) LYMPHOCYTES ABSOLUTE COUNT (BEAKER) (test 1.91 K/ L 1.32-3.57 lkho=065) MONOCYTES ABSOLUTE COUNT (BEAKER) (test 1.75 K/ L 0.30-0.82 jbip=137) EOSINOPHILS ABSOLUTE COUNT (BEAKER) (test 0.14 K/ L 0.04-0.54 xlnp=849) BASOPHILS ABSOLUTE COUNT (BEAKER) (test 0.03 K/ L 0.01-0.08 brps=869) IMMATURE GRANULOCYTES-RELATIVE PERCENT (BEAKER) 0 % 0-1 (test pybc=1293) (MANUAL DIFFERENTIAL)2017-02-03 15:17:00 Test Item Value Reference Range Comments TOTAL COUNTED (BEAKER) (test dgkq=0962) WBC MORPHOLOGY (BEAKER) (test unse=846) Normal PLT MORPHOLOGY (BEAKER) (test jxhf=755) Normal RBC MORPHOLOGY (BEAKER) (test iyis=939) Normal POCT-GLUCOSE [id number] 12:54:00 Test Item Value Reference Range Comments POC-GLUCOSE METER (BEAKER) 173 mg/dL 70-[address] [facility] [address] [facility] (test kfea=0291) [facility] [address] URINALYSIS W/ REFLEX URINE [id number] 12:06:00 Test Item Value Reference Range Comments COLOR (BEAKER) (test rxbm=392) Yellow CLARITY (BEAKER) (test zihd=134) Clear SPECIFIC GRAVITY UA (BEAKER) (test pzfp=684) 1.016 1.001-1.035 PH UA (BEAKER) (test ynuo=210) 5.0 5.0-8.0 PROTEIN UA (BEAKER) (test szsz=230) 20 mg/dL Negative GLUCOSE UA (BEAKER) (test yfjm=698) 50 mg/dL Negative KETONES UA (BEAKER) (test lnah=405) Negative Negative BILIRUBIN UA (BEAKER) (test lupc=421) Negative Negative BLOOD UA (BEAKER) (test bjxu=638) Trace Negative NITRITE UA (BEAKER) (test oote=235) Negative Negative LEUKOCYTE ESTERASE UA (BEAKER) (test xgfs=411) Negative Negative UROBILINOGEN UA (BEAKER) (test irzw=141) 0.2 mg/dL 0.2-1.0 RBC UA (BEAKER) (test jbzx=831) 3 /HPF WBC UA (BEAKER) (test qptw=205) 4 /HPF BACTERIA (BEAKER) (test ylxo=240) Occasional MUCUS (BEAKER) (test nnkg=9301) Occasional SQUAMOUS EPITHELIAL (BEAKER) (test mwsh=063) 1 /HPF AMORPHOUS CRYSTALS (BEAKER) (test ufms=8701) Occasional SOURCE(BEAKER) (test ypuy=9347) CREATININE, RANDOM [id number] 10:52:00 Test Item Value Reference Range Comments CREATININE URINE (BEAKER) (test cicq=410) 127.3 mg/dL Reference Range: No NormalsPROTEIN, RANDOM [id number] 10:52:00 Test Item Value Reference Range Comments PROTEIN, URINE (BEAKER) (test rkgz=7976) 19 mg/dL 0-14 POCT-GLUCOSE [id number] 07:55:00 Test Item Value Reference Range Comments POC-GLUCOSE METER (BEAKER) 88 mg/dL 70-[address] [facility] [address] [facility] (test rbdw=2675) [facility] [address] [id number] 05:22:00 Test Item Value Reference Range Comments MAGNESIUM (BEAKER) (test nqvg=414) 1.8 mg/dL 1.6-2.6 BASIC METABOLIC [id number] 05:22:00 Test Item Value Reference Range Comments SODIUM (BEAKER) (test 138 meq/L 136-145 gydr=692) POTASSIUM (BEAKER) (test 4.0 meq/L 3.5-5.1 rcrs=414) CHLORIDE (BEAKER) (test 110 meq/L 98-107 bunv=104) CO2 (BEAKER) (test 21 meq/L 22-29 zwja=674) BLOOD UREA NITROGEN 31 mg/dL 7-21 (BEAKER) (test hzna=839) CREATININE (BEAKER) (test 1.27 mg/dL 0.57-1.25 ufzf=839) GLUCOSE RANDOM (BEAKER) 130 mg/dL 70-105 (test uqsz=596) CALCIUM (BEAKER) (test 8.4 mg/dL 8.4-10.2 gzxp=335) EGFR (BEAKER) (test 56 mL/min/1.73 sq m ESTIMATED GFR IS NOT isao=3836) ACCURATE CREATININE CLEARANCE IN PREDICTING GLOMERULAR FILTRATION RATE. ESTIMATED GFR IS NOT APPLICABLE FOR DIALYSIS PATIENTS. B-TYPE NATRIURETIC FACTOR (BNP)2017-02-03 05:17:00 Test Item Value Reference Range Comments B-TYPE NATRIURETIC PEPTIDE (BEAKER) (test 315 pg/mL 0-100 gnhg=647) POCT-GLUCOSE [id number] 21:36:00 Test Item Value Reference Range Comments POC-GLUCOSE METER (BEAKER) 230 mg/dL 70-110 TESTED AT [address] (test jrvc=9796) [place] [address] POCT-GLUCOSE [id number] 17:50:00 Test Item Value Reference Range Comments POC-GLUCOSE METER (BEAKER) 185 mg/dL 70-110 TESTED AT [address] (test kbuy=9121) [place] [address] POCT-GLUCOSE [id number] 12:49:00 Test Item Value Reference Range Comments POC-GLUCOSE METER (BEAKER) 168 mg/dL 70-110 TESTED AT [address] (test ntep=5368) [place] [address] CT, CHEST, WITHOUT [id number] 11:27:00FINAL REPORT Chest CT without contrast Reason [...] MDReport Verified Date/Time: 02/02/2017 11:27:58 Reading Location: [facility] B1 [id number] Ortho Consult Reading Room Electronically signed by: CAR KABA M.D. on 11:27 AMPOCT-GLUCOSE [id number] 08:24:00 Test Item Value Reference Range Comments POC-GLUCOSE METER (BEAKER) 84 mg/dL 70-[address] [facility] [address] [facility] (test utbr=2215) [facility] [address] [id number] 07:42:00 Test Item Value Reference Range Comments MAGNESIUM (BEAKER) (test wglb=967) 1.8 mg/dL 1.6-2.6 BASIC METABOLIC [id number] 07:42:00 Test Item Value Reference Range Comments SODIUM (BEAKER) (test 137 meq/L 136-145 xaur=544) POTASSIUM (BEAKER) (test 3.8 meq/L 3.5-5.1 emyr=629) CHLORIDE (BEAKER) (test 108 meq/L 98-107 tsug=254) CO2 (BEAKER) (test 20 meq/L 22-29 ylhd=020) BLOOD UREA NITROGEN 35 mg/dL 7-21 (BEAKER) (test pxbk=068) CREATININE (BEAKER) (test 1.30 mg/dL 0.57-1.25 suyw=132) GLUCOSE RANDOM (BEAKER) 102 mg/dL 70-105 (test prjs=946) CALCIUM (BEAKER) (test 8.4 mg/dL 8.4-10.2 jkhv=087) EGFR (BEAKER) (test 54 mL/min/1.73 sq m ESTIMATED GFR IS NOT bpiu=2464) ACCURATE CREATININE CLEARANCE IN PREDICTING GLOMERULAR FILTRATION RATE. ESTIMATED GFR IS NOT APPLICABLE FOR DIALYSIS PATIENTS. CBC W/PLT COUNT & AUTO [id number] 07:40:00 Test Item Value Reference Range Comments WHITE BLOOD CELL COUNT (BEAKER) (test eodb=700) 9.3 K/ L 3.5-10.5 RED BLOOD CELL COUNT (BEAKER) (test forf=797) 4.32 M/ L 4.63-6.08 HEMOGLOBIN (BEAKER) (test pqyf=060) 11.9 GM/DL 13.7-17.5 HEMATOCRIT (BEAKER) (test pjfy=700) 38.3 % 40.1-51.0 MEAN CORPUSCULAR VOLUME (BEAKER) (test aucf=362) 88.7 fL 79.0-92.2 MEAN CORPUSCULAR HEMOGLOBIN (BEAKER) (test 27.5 pg 25.7-32.2 vduj=164) MEAN CORPUSCULAR HEMOGLOBIN CONC (BEAKER) (test 31.1 GM/DL 32.3-36.5 gwxp=309) RED CELL DISTRIBUTION WIDTH (BEAKER) (test 16.4 % 11.6-14.4 feud=328) PLATELET COUNT (BEAKER) (test ueeq=396) 150 K/CU MM 150-450 MEAN PLATELET VOLUME (BEAKER) (test cnoc=223) 10.3 fL 9.4-12.4 NUCLEATED RED BLOOD CELLS (BEAKER) (test 0 /100 WBC 0-0 rotb=826) NEUTROPHILS RELATIVE PERCENT (BEAKER) (test 58 % avel=945) LYMPHOCYTES RELATIVE PERCENT (BEAKER) (test 20 % moag=886) MONOCYTES RELATIVE PERCENT (BEAKER) (test 20 % onva=368) EOSINOPHILS RELATIVE PERCENT (BEAKER) (test 2 % pqsa=976) BASOPHILS RELATIVE PERCENT (BEAKER) (test 0 % dwfh=771) NEUTROPHILS ABSOLUTE COUNT (BEAKER) (test 5.35 K/ L 1.78-5.38 ubwv=662) LYMPHOCYTES ABSOLUTE COUNT (BEAKER) (test 1.84 K/ L 1.32-3.57 xphs=432) MONOCYTES ABSOLUTE COUNT (BEAKER) (test 1.83 K/ L 0.30-0.82 ahkg=268) EOSINOPHILS ABSOLUTE COUNT (BEAKER) (test 0.16 K/ L 0.04-0.54 kvst=311) BASOPHILS ABSOLUTE COUNT (BEAKER) (test 0.03 K/ L 0.01-0.08 xzdi=908) IMMATURE GRANULOCYTES-RELATIVE PERCENT (BEAKER) 0 % 0-1 (test xugq=1615) POCT-GLUCOSE [id number] 21:29:00 Test Item Value Reference Range Comments POC-GLUCOSE METER (BEAKER) 273 mg/dL 70-110 TESTED AT [address] (test pgim=2240) [facility] [address] POCT-GLUCOSE [id number] 19:21:00 Test Item Value Reference Range Comments POC-GLUCOSE METER (BEAKER) 286 mg/dL 70-110 TESTED AT [address] (test gbhn=8414) [facility] [address] POCT-GLUCOSE [id number] 17:33:00 Test Item Value Reference Range Comments POC-GLUCOSE METER (BEAKER) 263 mg/dL 70-110 TESTED AT [address] (test spsr=9901) [facility] [address] POCT-GLUCOSE [id number] 12:25:00 Test Item Value Reference Range Comments POC-GLUCOSE METER (BEAKER) 196 mg/dL 70-110 TESTED AT [address] (test mlhz=9332) [facility] [address] CBC W/PLT COUNT & AUTO [id number] 10:54:00 Test Item Value Reference Range Comments WHITE BLOOD CELL COUNT (BEAKER) (test cyjj=442) 9.0 K/ L 3.5-10.5 RED BLOOD CELL COUNT (BEAKER) (test jndq=336) 4.43 M/ L 4.63-6.08 HEMOGLOBIN (BEAKER) (test drzn=996) 12.2 GM/DL 13.7-17.5 HEMATOCRIT (BEAKER) (test vdin=408) 39.3 % 40.1-51.0 MEAN CORPUSCULAR VOLUME (BEAKER) (test mthr=479) 88.7 fL 79.0-92.2 MEAN CORPUSCULAR HEMOGLOBIN (BEAKER) (test 27.5 pg 25.7-32.2 iqfk=808) MEAN CORPUSCULAR HEMOGLOBIN CONC (BEAKER) (test 31.0 GM/DL 32.3-36.5 vwol=803) RED CELL DISTRIBUTION WIDTH (BEAKER) (test 16.4 % 11.6-14.4 vuyf=455) PLATELET COUNT (BEAKER) (test utjb=382) 157 K/CU MM 150-450 MEAN PLATELET VOLUME (BEAKER) (test eyyi=254) 11.1 fL 9.4-12.4 NUCLEATED RED BLOOD CELLS (BEAKER) (test 0 /100 WBC 0-0 qryg=182) NEUTROPHILS RELATIVE PERCENT (BEAKER) (test 55 % dnrb=223) LYMPHOCYTES RELATIVE PERCENT (BEAKER) (test 24 % nlid=600) MONOCYTES RELATIVE PERCENT (BEAKER) (test 19 % zknl=159) EOSINOPHILS RELATIVE PERCENT (BEAKER) (test 2 % gsld=113) BASOPHILS RELATIVE PERCENT (BEAKER) (test 0 % ikpx=236) NEUTROPHILS ABSOLUTE COUNT (BEAKER) (test 4.95 K/ L 1.78-5.38 dmlz=007) LYMPHOCYTES ABSOLUTE COUNT (BEAKER) (test 2.13 K/ L 1.32-3.57 ncgw=562) MONOCYTES ABSOLUTE COUNT (BEAKER) (test 1.71 K/ L 0.30-0.82 rodm=319) EOSINOPHILS ABSOLUTE COUNT (BEAKER) (test 0.17 K/ L 0.04-0.54 hyuz=351) BASOPHILS ABSOLUTE COUNT (BEAKER) (test 0.02 K/ L 0.01-0.08 ubdo=706) IMMATURE GRANULOCYTES-RELATIVE PERCENT (BEAKER) 0 % 0-1 (test xklp=0681) (MANUAL DIFFERENTIAL)2017-02-01 10:54:00 Test Item Value Reference Range Comments TOTAL COUNTED (BEAKER) (test ffxi=6793) WBC MORPHOLOGY (BEAKER) (test ypgs=219) Normal PLT MORPHOLOGY (BEAKER) (test ebnu=784) Normal RBC MORPHOLOGY (BEAKER) (test rkzb=922) Normal POCT-GLUCOSE [id number] 08:17:00 Test Item Value Reference Range Comments POC-GLUCOSE METER (BEAKER) 176 mg/dL 70-[address] [facility] [address] [facility] (test crma=3126) [facility] [address] [id number] 06:41:00 Test Item Value Reference Range Comments MAGNESIUM (BEAKER) (test imiy=432) 1.7 mg/dL 1.6-2.6 BASIC METABOLIC [id number] 06:41:00 Test Item Value Reference Range Comments SODIUM (BEAKER) (test 136 meq/L 136-145 bzdd=669) POTASSIUM (BEAKER) (test 3.6 meq/L 3.5-5.1 qiho=291) CHLORIDE (BEAKER) (test 107 meq/L 98-107 blqq=228) CO2 (BEAKER) (test 21 meq/L 22-29 yhbj=489) BLOOD UREA NITROGEN 37 mg/dL 7-21 (BEAKER) (test lefp=695) CREATININE (BEAKER) (test 1.43 mg/dL 0.57-1.25 vbav=124) GLUCOSE RANDOM (BEAKER) 180 mg/dL 70-105 (test srvx=590) CALCIUM (BEAKER) (test 8.4 mg/dL 8.4-10.2 wrjs=559) EGFR (BEAKER) (test 48 mL/min/1.73 sq m ESTIMATED GFR IS NOT hsnc=3334) ACCURATE CREATININE CLEARANCE IN PREDICTING GLOMERULAR FILTRATION RATE. ESTIMATED GFR IS NOT APPLICABLE FOR DIALYSIS PATIENTS. POCT-GLUCOSE [id number] 21:33:00 Test Item Value Reference Range Comments POC-GLUCOSE METER (BEAKER) 295 mg/dL 70-110 TESTED AT [address] (test ntxe=4261) [place] [id number] POCT-GLUCOSE [id number] 17:47:00 Test Item Value Reference Range Comments POC-GLUCOSE METER (BEAKER) 277 mg/dL 70-110 TESTED AT [address] (test faty=3544) [place] [address] RAD, CHEST, 2 [id number] 15:44:00Reason for exam:->dyspneaFINAL REPORT HISTORY : dyspnea. [...] MDReport Verified Date/Time: 01/31/2017 15:44:13 Reading Location: [facility] C013X Ortho Consult Reading Room POCT-GLUCOSE [id number] 11:51:00 Test Item Value Reference Range Comments POC-GLUCOSE METER (BEAKER) 238 mg/dL 70-110 TESTED AT [address] (test chky=8721) [facility] [address] POCT-GLUCOSE [id number] 09:54:00 Test Item Value Reference Range Comments POC-GLUCOSE METER (BEAKER) 224 mg/dL 70-[address] [facility] [address] (test xigo=1449) [facility] [address] CBC W/PLT COUNT & AUTO [id number] 05:34:00 Test Item Value Reference Range Comments WHITE BLOOD CELL COUNT (BEAKER) (test epfk=960) 9.4 K/ L 3.5-10.5 RED BLOOD CELL COUNT (BEAKER) (test yzjf=885) 4.42 M/ L 4.63-6.08 HEMOGLOBIN (BEAKER) (test zyhd=566) 12.1 GM/DL 13.7-17.5 HEMATOCRIT (BEAKER) (test qrxv=568) 39.0 % 40.1-51.0 MEAN CORPUSCULAR VOLUME (BEAKER) (test nwij=015) 88.2 fL 79.0-92.2 MEAN CORPUSCULAR HEMOGLOBIN (BEAKER) (test 27.4 pg 25.7-32.2 fzlp=274) MEAN CORPUSCULAR HEMOGLOBIN CONC (BEAKER) (test 31.0 GM/DL 32.3-36.5 ahaa=094) RED CELL DISTRIBUTION WIDTH (BEAKER) (test 16.5 % 11.6-14.4 zjej=125) PLATELET COUNT (BEAKER) (test ggfv=870) 176 K/CU MM 150-450 MEAN PLATELET VOLUME (BEAKER) (test agfj=980) 10.8 fL 9.4-12.4 NUCLEATED RED BLOOD CELLS (BEAKER) (test 0 /100 WBC 0-0 gcjw=495) NEUTROPHILS RELATIVE PERCENT (BEAKER) (test 52 % ypjf=395) LYMPHOCYTES RELATIVE PERCENT (BEAKER) (test 26 % lsis=949) MONOCYTES RELATIVE PERCENT (BEAKER) (test 19 % tfpy=345) EOSINOPHILS RELATIVE PERCENT (BEAKER) (test 2 % xnpb=122) BASOPHILS RELATIVE PERCENT (BEAKER) (test 0 % ahid=253) NEUTROPHILS ABSOLUTE COUNT (BEAKER) (test 4.91 K/ L 1.78-5.38 uzzc=662) LYMPHOCYTES ABSOLUTE COUNT (BEAKER) (test 2.41 K/ L 1.32-3.57 ywud=808) MONOCYTES ABSOLUTE COUNT (BEAKER) (test 1.81 K/ L 0.30-0.82 clto=258) EOSINOPHILS ABSOLUTE COUNT (BEAKER) (test 0.19 K/ L 0.04-0.54 xtlq=120) BASOPHILS ABSOLUTE COUNT (BEAKER) (test 0.02 K/ L 0.01-0.08 sdru=901) IMMATURE GRANULOCYTES-RELATIVE PERCENT (BEAKER) 0 % 0-1 (test kljo=3642) [id number] 05:19:00 Test Item Value Reference Range Comments MAGNESIUM (BEAKER) (test twdn=602) 1.8 mg/dL 1.6-2.6 BASIC METABOLIC [id number] 05:19:00 Test Item Value Reference Range Comments SODIUM (BEAKER) (test 135 meq/L 136-145 mmjf=061) POTASSIUM (BEAKER) (test 3.6 meq/L 3.5-5.1 mtwz=528) CHLORIDE (BEAKER) (test 105 meq/L 98-107 ihwe=222) CO2 (BEAKER) (test 20 meq/L 22-29 xbfq=104) BLOOD UREA NITROGEN 46 mg/dL 7-21 (BEAKER) (test vxmt=617) CREATININE (BEAKER) (test 1.61 mg/dL 0.57-1.25 vtll=104) GLUCOSE RANDOM (BEAKER) 193 mg/dL 70-105 (test jlid=318) CALCIUM (BEAKER) (test 8.5 mg/dL 8.4-10.2 vbbi=305) EGFR (BEAKER) (test 42 mL/min/1.73 sq m ESTIMATED GFR IS NOT qvhu=3428) ACCURATE CREATININE CLEARANCE IN PREDICTING GLOMERULAR FILTRATION RATE. ESTIMATED GFR IS NOT APPLICABLE FOR DIALYSIS PATIENTS. STREP PNEUMONIAE [id number] 23:56:00 Test Item Value Reference Range Comments STREP PNEUMONIAE ANTIGEN Presumptive negative for Presumptive negative for (BEAKER) (test pneumococcal pneumonia - pneumococcal pneumonia - lmlv=6164) see comment see commen Presumptive negative for pneumococcal pneumonia, suggesting no current or recent pneumococcal infection. Infection due to S. pneumoniae cannot be ruled out since the antigen present in the sample may be below the detection limit of the test.LEGIONELLA ANTIGEN, [id number] 23:54:00 Test Item Value Reference Range Comments L. PNEUMOPHILA SEROGP 1 Negative - see Negative for L. UR AG (BEAKER) (test comment pneumophila serogroup 1 ircn=9101) antigen, suggesting no recent or current infection with this serogroup. Legionellosis cannot be ruled out since other serogroups and species may cause disease. INFLUENZA A H1N1 [id number] 23:10:00 Test Item Value Reference Range Comments INFLUENZA A RNA (BEAKER) (test Not Detected Not Detected, Inconclusive ulhi=4497) NOVEL H1N1 RNA (BEAKER) (test Not Detected Not Detected, Inconclusive adqr=7583) These assays were performed by real-time RT-PCR (community development coordinator-PCR) utilizing fluorogenic hydrolysis probe technology for the detection of human Influenza A viruses and the differential detection of novel H1N1 Influenza virus in respiratory specimens. The test is composed of (1) an RNA extraction from patient specimen, and (2) community development coordinator-PCR amplification and detection with human Influenza A and novel J0W7-jayvjait primers and probes. A well-conserved region of [...] and its performance characteristics determined by the [facility] [place], [place] Pathology Department, Section of Molecular Pathology. It has not been cleared or approved by the U.S. Food and Drug Administration (FDA). SinceFDA approval is not required for clinical use of the test, validation was done as required by The Clinical Laboratory Amendments of 1988.These assays were performed by real-time RT-PCR (community development coordinator-PCR) utilizing fluorogenic hydrolysis probe technology for the detection of human Influenza A viruses and the differential detection of novel H1N1 Influenza virus in respiratory specimens. The test is composed of (1) an RNA extraction from patient specimen, and (2) community development coordinator-PCR amplification and detection with human Influenza A and novel G6I4-fmbombmm primers and probes. A well-conserved region of [...] and its performance characteristics determined by the [facility] [place], [place] Pathology Department, Section of Molecular Pathology. It has not been cleared or approved by the U.S. Food and Drug Administration ( FDA). Since FDA approval is not required for clinical use of the test, validation was done as required by The Clinical Laboratory Amendments of 1988.POCT-GLUCOSE [id number] 23:03:00 Test Item Value Reference Range Comments POC-GLUCOSE METER (BEAKER) 233 mg/dL 70-[address] [facility] [address] [facility] (test lrvf=6137) [facility] [address] U/S, RENAL, [id number] 22:23:00Reason for exam:->akiFINAL REPORT U/S, RENAL, COMPLETE [...] MDReport Verified Date/Time: 01/30/2017 22:23:06 Reading Location: [address] Ortho Consult Reading Room Electronically signed by: SARIAH BARRIOS MD on 2016 10:23 PMSODIUM, RANDOM [id number] 20:40:00 Test Item Value Reference Range Comments SODIUM URINE (BEAKER) (test zeik=652) < meq/L Reference Range: No NormalsEOSINOPHIL SMEAR, [id number] 20:40:00 Test Item Value Reference Range Comments EOSINOPHIL SMEAR, URINE (BEAKER) (test No EOS seen No EOS seen yhpb=0176) CREATININE, RANDOM [id number] 20:24:00 Test Item Value Reference Range Comments CREATININE URINE (BEAKER) (test llep=322) 113.2 mg/dL Reference Range: No NormalsMICROALBUMIN, RANDOM [id number] 20:24:00 Test Item Value Reference Range Comments MICROALBUMIN URINE (BEAKER) (test cjdm=6858) 4.2 mg/dL Reference Range: No NormalsURINALYSIS W/ [id number] 20:14:00 Test Item Value Reference Range Comments COLOR (BEAKER) (test jrvj=895) Yellow CLARITY (BEAKER) (test ylpn=760) Hazy SPECIFIC GRAVITY UA (BEAKER) (test kszx=737) 1.013 1.001-1.035 PH UA (BEAKER) (test jxnm=823) 5.0 5.0-8.0 PROTEIN UA (BEAKER) (test jctk=693) 20 mg/dL Negative GLUCOSE UA (BEAKER) (test ogma=618) 30 mg/dL Negative KETONES UA (BEAKER) (test zqkb=088) Negative Negative BILIRUBIN UA (BEAKER) (test atog=564) Negative Negative BLOOD UA (BEAKER) (test vmst=903) Negative Negative NITRITE UA (BEAKER) (test rrhs=899) Negative Negative LEUKOCYTE ESTERASE UA (BEAKER) (test bvav=169) Moderate Negative UROBILINOGEN UA (BEAKER) (test jpgn=902) 0.2 mg/dL 0.2-1.0 RBC UA (BEAKER) (test ando=216) 1 /HPF WBC UA (BEAKER) (test bluc=622) 5 /HPF MUCUS (BEAKER) (test pkgc=1263) Rare SQUAMOUS EPITHELIAL (BEAKER) (test rzap=197) 1 /HPF SOURCE(BEAKER) (test xkym=0858) Urine, Voided POCT-GLUCOSE [id number] 18:25:00 Test Item Value Reference Range Comments POC-GLUCOSE METER (BEAKER) 230 mg/dL 70-110 TESTED AT [address] (test onsb=3284) [facility] [address] POCT-GLUCOSE [id number] 13:49:00 Test Item Value Reference Range Comments POC-GLUCOSE METER (BEAKER) 267 mg/dL 70-110 TESTED AT [address] (test ytfy=0089) [facility] [address] HEMOGLOBIN [id number] 11:50:00 Test Item Value Reference Range Comments HEMOGLOBIN A1C (BEAKER) (test jbuq=628) 10.7 % 4.3-6.1 TROPONIN [id number] 11:42:00 Test Item Value Reference Range Comments TROPONIN I (BEAKER) (test apte=683) 0.02 ng/mL 0.00-0.03 Troponin I (TnI) levels [...] acidosis, acute neurological disease, and persistent tachyarrhythmia.POCT-GLUCOSE [id number] 09:41:00 Test Item Value Reference Range Comments POC-GLUCOSE METER (BEAKER) 228 mg/dL 70-[address] [facility] [address] [facility] (test aeey=8662) [facility] [address] RAD, CHEST, 1 VIEW, NON [id number] 07:41:00Reason for exam:->eval pneumoniaShould this be performed [...] represent atelectasis or pneumonitis. Signed: Zuleima Graff [facility] Verified Date/Time: 01/30/2017 07:41:41 ReadingLocation: [facility] B1 C013T Transitional Reading Room [id number] 02:54:00 Test Item Value Reference Range Comments MAGNESIUM (BEAKER) (test zyvv=029) 1.6 mg/dL 1.6-2.6 BASIC METABOLIC [id number] 02:54:00 Test Item Value Reference Range Comments SODIUM (BEAKER) (test 137 meq/L 136-145 hdgj=555) POTASSIUM (BEAKER) (test 3.8 meq/L 3.5-5.1 avte=697) CHLORIDE (BEAKER) (test 104 meq/L 98-107 uohy=625) CO2 (BEAKER) (test 19 meq/L 22-29 hrgp=330) BLOOD UREA NITROGEN 48 mg/dL 7-21 (BEAKER) (test hjxp=663) CREATININE (BEAKER) (test 1.76 mg/dL 0.57-1.25 orpy=294) GLUCOSE RANDOM (BEAKER) 217 mg/dL 70-105 (test rdlw=654) CALCIUM (BEAKER) (test 8.9 mg/dL 8.4-10.2 jpyy=455) EGFR (BEAKER) (test 38 mL/min/1.73 sq m ESTIMATED GFR IS NOT bgnm=6686) ACCURATE CREATININE CLEARANCE IN PREDICTING GLOMERULAR FILTRATION RATE. ESTIMATED GFR IS NOT APPLICABLE FOR DIALYSIS PATIENTS. RAPID INFLUENZA A&B [id number] 02:41:00 Test Item Value Reference Range Comments RAPID INFLUENZA A AG (BEAKER) (test Negative Negative, Inconclusive lmxw=3020) RAPID INFLUENZA B AG (BEAKER) (test Negative Negative, Inconclusive tvks=4913) CBC W/PLT COUNT & AUTO [id number] 02:07:00 Test Item Value Reference Range Comments WHITE BLOOD CELL COUNT (BEAKER) (test xzig=929) 10.6 K/ L 3.5-10.5 RED BLOOD CELL COUNT (BEAKER) (test xias=686) 4.75 M/ L 4.63-6.08 HEMOGLOBIN (BEAKER) (test cvvf=483) 13.2 GM/DL 13.7-17.5 HEMATOCRIT (BEAKER) (test ialv=920) 42.4 % 40.1-51.0 MEAN CORPUSCULAR VOLUME (BEAKER) (test dhkg=826) 89.3 fL 79.0-92.2 MEAN CORPUSCULAR HEMOGLOBIN (BEAKER) (test 27.8 pg 25.7-32.2 vmxy=943) MEAN CORPUSCULAR HEMOGLOBIN CONC (BEAKER) (test 31.1 GM/DL 32.3-36.5 vfqu=314) RED CELL DISTRIBUTION WIDTH (BEAKER) (test 16.8 % 11.6-14.4 sijh=584) PLATELET COUNT (BEAKER) (test jhlu=516) 202 K/CU MM 150-450 MEAN PLATELET VOLUME (BEAKER) (test wrrj=074) 10.7 fL 9.4-12.4 NUCLEATED RED BLOOD CELLS (BEAKER) (test 0 /100 WBC 0-0 zplr=127) NEUTROPHILS RELATIVE PERCENT (BEAKER) (test 63 % aawo=514) LYMPHOCYTES RELATIVE PERCENT (BEAKER) (test 17 % bced=153) MONOCYTES RELATIVE PERCENT (BEAKER) (test 18 % fypu=680) EOSINOPHILS RELATIVE PERCENT (BEAKER) (test 1 % yoos=169) BASOPHILS RELATIVE PERCENT (BEAKER) (test 0 % thaf=190) NEUTROPHILS ABSOLUTE COUNT (BEAKER) (test 6.60 K/ L 1.78-5.38 zsdo=689) LYMPHOCYTES ABSOLUTE COUNT (BEAKER) (test 1.82 K/ L 1.32-3.57 lzmo=346) MONOCYTES ABSOLUTE COUNT (BEAKER) (test 1.94 K/ L 0.30-0.82 barg=351) EOSINOPHILS ABSOLUTE COUNT (BEAKER) (test 0.10 K/ L 0.04-0.54 inpt=578) BASOPHILS ABSOLUTE COUNT (BEAKER) (test 0.02 K/ L 0.01-0.08 mkxl=184) IMMATURE GRANULOCYTES-RELATIVE PERCENT (BEAKER) 1 % 0-1 (test bami=7951) POCT-GLUCOSE [id number] 23:18:00 Test Item Value Reference Range Comments POC-GLUCOSE METER (BEAKER) 230 mg/dL 70-[address] [facility] [address] [facility] (test jkrp=3459) [facility] [address]
--- NOTE | 2018-08-17 19:45 | ER ---
Nurse's Notes [facility] Name: Ely Coley Age: 73 yrs Sex: Male : 1945 Arrival Date: 08/17/2018 Time: 18:38 Bed 5 Private MD: Jean Carlos Velásquez E Diagnosis: Edema, unspecified-of both LE Presentation: 08/17 18:38 Presenting complaint: Patient states: same old problem with my R lower leg cellulitis, hj penelope been here 5 times this year for this; i noticed this 25- 30 days ago; denies fever and chills;. Transition of care: patient was not received from another setting of care. Onset of symptoms was August 17, 2018. Risk Assessment: Do you want to hurt yourself or someone else? Patient reports no desire to harm self or others. Initial Sepsis Screen: Does the patient meet any 2 criteria? Yes Does the patient have a suspected source of infection? Yes: Skin breakdown/wound. Care prior to arrival: None. 18:38 Method Of Arrival: Ambulatory 18:38 Acuity: MITCH 3 hj Historical: - Allergies: 18:41 steroids; hj - PMHx: 18:41 Atrial Fib; CVA; Diabetes - NIDDM; hj - PSHx: 18:41 pacemaker; right knee; hj - Immunization history:: Adult Immunizations unknown. - Social history:: Patient/guardian denies using alcohol, street drugs, The patient lives Smoking status: unknown. - Ebola Screening: : No symptoms or risks identified at this time. - Family history:: not pertinent. Screenin:33 Abuse screen: Denies threats or abuse. Denies injuries from another. Nutritional ak1 screening: No deficits noted. Tuberculosis screening: No symptoms or risk factors identified. Fall Risk None identified. Assessment: 19:33 General: Appears in no apparent distress. Behavior is calm, cooperative, pt and ak1 counseled about medications and follow up with PCP and Cardiology.. Pain: Complains of pain in right leg. Neuro: No deficits noted. Cardiovascular: No deficits noted. Respiratory: No deficits noted. GI: No signs and/or symptoms were reported involving the gastrointestinal system. : No signs and/or symptoms were reported regarding the genitourinary system. EENT: No signs and/or symptoms were reported regarding the EENT system. Derm: swelling noted to right lower leg. Musculoskeletal: No signs and/or symptoms reported regarding the musculoskeletal system. Vital Signs: 18:41 BP 126 / 63; Pulse 60; Resp 20; Temp 98.5(TE); Pulse Ox 96% on R/A; Weight 104.33 kg; hj Height 6 ft. 0 in. (182.88 cm); Pain 7/10; 19:39 BP 115 / 52; Pulse 60; Resp 14; Temp 98.1(O); Pulse Ox 97% on R/A; ag4 18:41 Body Mass Index 31.19 (104.33 kg, 182.88 cm) ED Course: 18:38 Patient arrived in ED. mr 18:38 Jean Carlos Velásquez MD is Private Physician. mr 18:40 Triage completed. hj 18:41 Arm band placed on right wrist. hj 19:32 Larisa Lopez RN is Primary Nurse. ak1 19:33 Patient has correct armband on for positive identification. Bed in low position. Call ak1 light in reach. Side rails up X 1. Adult w/ patient. 19:33 No provider procedures requiring assistance completed. ak1 19:40 Leigh Ann Reynoso MD is Attending Physician. ma2 19:45 Patient did not have IV access during this emergency room visit. ak1 Administered Medications: 19:44 Drug: Lasix 40 mg Route: IVP; Site: Other; ak1 19:57 Follow up: Response: No adverse reaction ak1 Outcome: 19:45 Discharge ordered by MD. ma2 19:58 Discharged to home ambulatory, with family. ak1 19:58 Condition: stable 19:58 Discharge instructions given to patient, family, Instructed on discharge instructions, follow up and referral plans. medication usage, Demonstrated understanding of instructions, follow-up care, medications, Prescriptions given X 1. 19:58 Patient left the ED. ak1 Signatures: Fifi Hernandez mr Larisa Lopez RN RN ak1 Geraldo Melgar RN RN Leigh Ann Reynoso MD MD ma2 Marcelo Xiao ag4 Corrections: (The following items were deleted from the chart) 18:43 18:41 Pulse 60bpm; Resp 20bpm; Pulse Ox 96% RA; Temp 98.5F Temporal; 104.33 kg; Height hj 6 ft. 0 in.; BMI: 31.1; Pain 7/10; hj
--- NOTE | 2018-08-17 19:46 | EDPHYS ---
Physician Documentation [facility] Name: Ely Coley Age: 73 yrs Sex: Male : 1945 Arrival Date: 08/17/2018 Time: 18:38 Bed 5 Private MD: Jean Carlos Velásquez E ED Physician Leigh Ann Reynoso HPI: 08/17 19:41 This 73 yrs old Male presents to ER via Ambulatory with complaints of Leg ma2 Swelling. 19:41 leg swelling for a year. Onset: The symptoms/episode began/occurred gradually. Severity ma2 of symptoms: At their worst the symptoms were moderate in the emergency department the symptoms are unchanged. The patient has experienced similar episodes in the past. Historical: - Allergies: 18:41 steroids; hj - PMHx: 18:41 Atrial Fib; CVA; Diabetes - NIDDM; hj - PSHx: 18:41 pacemaker; right knee; hj - Immunization history:: Adult Immunizations unknown. - Social history:: Patient/guardian denies using alcohol, street drugs, The patient lives Smoking status: unknown. - Ebola Screening: : No symptoms or risks identified at this time. - Family history:: not pertinent. ROS: 19:41 Constitutional: Negative for fever, chills, and weight loss. ma2 19:41 All other systems are negative. Exam: 19:41 Constitutional: This is a well developed, well nourished patient who is awake, alert, ma2 and in no acute distress. Head/Face: Normocephalic, atraumatic. Eyes: Pupils equal round and reactive to light, extra-ocular motions intact. Lids and lashes normal. Conjunctiva and sclera are non-icteric and not injected. Cornea within normal limits. Periorbital areas with no swelling, redness, or edema. ENT: Nares patent. No nasal discharge, no septal abnormalities noted. Tympanic membranes are normal and external auditory canals are clear. Oropharynx with no redness, swelling, or masses, exudates, or evidence of obstruction, uvula midline. Mucous membranes moist. Neck: Trachea midline, no thyromegaly or masses palpated, and no cervical lymphadenopathy. Supple, full range of motion without nuchal rigidity, or vertebral point tenderness. No Meningismus. Chest/axilla: Normal chest wall appearance and motion. Nontender with no deformity. No lesions are appreciated. Cardiovascular: Regular rate and rhythm with a normal S1 and S2. No gallops, murmurs, or rubs. Normal PMI, no JVD. No pulse deficits. Respiratory: Lungs have equal breath sounds bilaterally, clear to auscultation and percussion. No rales, rhonchi or wheezes noted. No increased work of breathing, no retractions or nasal flaring. Abdomen/GI: Soft, non-tender, with normal bowel sounds. No distension or tympany. No guarding or rebound. No evidence of tenderness throughout. Neuro: Awake and alert, GCS 15, oriented to person, place, time, and situation. Cranial nerves II-XII grossly intact. Motor strength 5/5 in all extremities. Sensory grossly intact. Cerebellar exam normal. Normal gait. 19:41 MS/ Extremity: Pulses equal, no cyanosis. Neurovascular intact. Full, normal range of motion. + bilat leg edema 2+ right more than left, had normal doppler last week, no pain no cellulitis 19:41 Musculoskeletal/extremity: Vital Signs: 18:41 BP 126 / 63; Pulse 60; Resp 20; Temp 98.5(TE); Pulse Ox 96% on R/A; Weight 104.33 kg; hj Height 6 ft. 0 in. (182.88 cm); Pain 7/10; 19:39 BP 115 / 52; Pulse 60; Resp 14; Temp 98.1(O); Pulse Ox 97% on R/A; ag4 18:41 Body Mass Index 31.19 (104.33 kg, 182.88 cm) hj MDM: 19:40 Patient medically screened. ma2 19:41 Differential Diagnosis LE edema, vs superficial venous thrombosis vs lymphedema he is ma2 on blodo thinners and vs wnl . Data reviewed: vital signs, nurses notes. Counseling: I had a detailed discussion with the patient and/or guardian regarding: the historical points, exam findings, and any diagnostic results supporting the discharge/admit diagnosis, the presence of at least one elevated blood pressure reading (>120/80) during this emergency department visit, the need for outpatient follow up. Response to treatment: the patient's symptoms have markedly improved after treatment. Administered Medications: 19:44 Drug: Lasix 40 mg Route: IVP; Site: Other; ak1 19:57 Follow up: Response: No adverse reaction ak1 Disposition: 08/17/18 19:45 Discharged to Home. Impression: Edema, unspecified - of both LE. - Condition is Stable. - Discharge Instructions: Edema. - Prescriptions for Lasix 20 mg Oral Tablet - take 1 tablet by ORAL route once daily; 7 tablet. - Medication Reconciliation Form, Thank You Letter, Antibiotic Education, Prescription Opioid Use form. - Follow up: Private Physician; When: Tomorrow; Reason: Continuance of care. Signatures: Larisa Lopez RN RN ak1 Geraldo Melgar RN RN Leigh Ann Reynoso MD MD ma2 Corrections: (The following items were deleted from the chart) 19:58 19:45 08/17/2018 19:45 Discharged to Home. Impression: Edema, unspecified - of both LE. ak1 Condition is Stable. Forms are Medication Reconciliation Form, Thank You Letter, Antibiotic Education, Prescription Opioid Use. Follow up: Private Physician; When: Tomorrow; Reason: Continuance of care. ma2
[2018-08-17] MEDS ORDERED: FUROSEMIDE 40 MG/4 ML VIAL ONE (19:55)
== END 2018-08-17 19:58 | disposition home or self-care (01) ==
LOC: ER 18:35
DX: R60.0 Localized edema (principal); Z88.8 Allergy status to other drugs, medicaments and biological substances
CPT/HCPCS: 96374; 99283; J1940

== ENCOUNTER 2019-10-02 19:02 | Emergency (ER) | payer OTHER ==
--- OUTSIDE RECORDS SUMMARY | 2019-10-02 19:04 | XMS REPORT | Clinical Summary ---
:1945 Author Organization [facility] Address [address] [place] [address] Care Team Providers Name Role Phone Unavailable [...] Not on file Results Not on fileafter 10/01/2018 Insurance Payer Benefit Plan / Group Subscriber ID Type Phone A ddress [employer] xxxxxxxx Maps Contracted ([place]) [place] [address] Advance Directives For more information, please contact:[place] [address] [place], [place] [phone] Code Status Date Activated Date Inactivated Comments Full Code 01/29/2017 11:40 PM 02/08/2017 6:18 PM This code status was determined by: Patient
--- OUTSIDE RECORDS SUMMARY | 2019-10-02 19:06 | XMS REPORT | Continuity of Care Document ---
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/19 [facility] MEMBRANE LEFT EYE 15 [facility] Atrial Resolved Problem 09/15/2016 [facility] fibrillation Medical (disorder) Center Chest pain Resolved Problem 09/15/2016 [facility] (finding) [facility] Congestive heart Resolved Problem 09/15/2016 [facility] failure (disorder) [facility] Cerebrovascular Resolved Problem 09/15/2016 [facility] accident [facility] (disorder) Center Dizziness Resolved Problem 09/15/2016 [facility] (finding) [facility] Diabetes mellitus Active Problem 09/15/2016 [facility] (disorder) [facility] Edema (finding) Resolved Problem 09/15/2016 [facility] Syncope (disorder) Resolved Problem 09/15/2016 [facility] Bradycardia Res[place] Problem [place] [facility] Hypertensive Active Problem 09/15/2016 Christoph as disorder, systemic [facility] arterial [facility] (disorder) [facility] Medications Medication Details Route Status Patient Ordering Order Source Instructions Provider Date Diltiazem 60 mg, No Longer [facility] Route: PO, Active 2016 Medical Drug form: Center TAB, Daily, Dosing Weight 116.364, kg, Start date: 09/13/16 9:00:00 CDT, Duration: 30 day, Stop date: 10/12/16 9:00:00 CDT metoprolol tartrate Notes: (Same Inactive [facility] as: 2017 Medical Lopressor) [place] Insulin regular 60 units) Inactive [facility] WASTE: F/P - 2017 Medical Black; E - Center Municipal Trash Bin Stable for 28 days at room temperature Expires in days from __Date Acetaminophen 300 MG 1 tab, PO, Active [place] / Codeine Phosphate Q4H, PRN 2017 Med ical 30 MG Oral Tablet Pain Score Jordi ter 4-6, 0 Refill(s) Dextrose 50% Syringe 25 gm, 50 Inactive [place] mL, Route: 2017 Medical IVP, Drug Center Form: INJ, Dosing Weight 116.364, kg, PRN, PRN Blood Glucose Results, Start date: 09/12/16 11:50:00 CDT, Duration: 30 day, Stop date: 10/12/16 11:49:00 CDT Glucagon 1 mg, Route: Inactive [place] IM, Drug 2016 Medical form: Center PDR/INJ, PRN, Dosing Weight 116.364, kg, PRN Blood Glucose Results, Start date: 09/12/16 11:50:00 CDT, Duration: 30 day, Stop date: 10/12/16 11:49:00 CDT valsartan Notes: Same Inactive [place] as Russvan 2017 Medical Center Cefazolin Notes: (Same [place] Longer [place] As: Ancef, Active 2016 Medical Kefzol) Center MEDICATION WASTE Product Size: 1000 mg Product Wasted: _0_ mg Calcium Gluconate Notes: [place]er [place] WASTE: F/P - Active 2016 Medical Sink; E - Center Municipal Trash Bin Magnesium Oxide Notes: (Same No Longer [facility] as: Mag-Ox Active 2016 Medical 400) Center Magnesium oxide [id number] elemental magnesium Dose=____mg magnesium oxide (___mg elemental magnesium) Magnesium Sulfate Notes: [place] Longer [place] WASTE: F/P - Active 2016 Medical Sink; E - Center Municipal Trash Bin sodium phosphate 15 mmol, 5 No Longer [place] mL, Route: Active 2016 Medical IVPB, PRN, Center Dosing Weight 116.364, kg, PRN Abnormal Lab Result, For NON-ICU Patients Only., Start date: 09/11/16 22:33:00 CDT, Duration: 30 day, Stop date: 10/11/16 22:32:00 CDT Potassium Chloride Notes: (Same No Longer [facility] as: KCL) Active 2016 Medical Infuse over Center 2 hours. potassium Notes: (Same No Longer [place] senthil phosphate-sodium as: Active 2016 Medical phosphate 250 mg-280 Phos-NaK) C enter mg-160 mg oral Each 1.5 gm powder for pkt has reconstitution 250mg phosphorous. Mix w/2.5oz water and stir. potassium phosphate Notes: (Same No Longer 09/12 [facility] as: K Active 2016 Medical Phosphate.) Center 1 mMol phoshate has 1.47 mEq potassium Infuse over 4 hours Magnesium Sulfate Notes: [place] Longer [place] WASTE: F/P - Active 2016 Medical Sink; E - Center [place] Trash Bin Magnesium Sulfate Notes: [place] WASTE: F/P - 2017 Medical Sink; E - Center Municipal Trash Bin Potassium Chloride Notes: (Same Inactive [facility] as: K-Dur 2016 Medical 20) "Do Not Center Crush" With food and full glass of water Pradaxa Notes: DO No Longer [place] NOT break, Active 2016 Medical chew or open Center capsules for administrati on. metoprolol tartrate 25 mg, Inactive [place] Route: PO, 2016 Medical Drug form: [place] TAB, Q12H, Dosing Weight 116.364, kg, Start date: 09/11/16 21:00:00 CDT, Duration: 30 day, Stop date: 10/11/16 9:00:00 CDT Lasix 20 mg, Inactive [facility] Route: IVP, 2016 Medical Drug form: [place] INJ, ONCE, Dosing Weight 116.364, kg, Start date: 09/11/16 18:38:00 CDT, Stop date: 09/11/16 18:38:00 CDT Diltiazem Notes: (Same No Longer Ruthie ndiaye as: Active 2016 Medical Cardizem) [place] tramadol 50 mg, PO, No Longer [place] hydrochloride 50 MG Q4H, PRN Active 2016 Med ical Oral Tablet Pain Score Center 1-3, # 10 tab, 0 Refill(s) tramadol Notes: Not No Longer [place] hydrochloride 50 MG to exceed Active 2016 Me dical Oral Tablet 400mg/day. Center (Same As: Ultra) metoprolol tartrate 25 mg, PO, Active H [place] 25 mg oral tablet Q12H, # 60 2017 Med ical tab, 1 Center Refill(s) metoprolol tartrate Notes: (Same No Longer 09/11 [place] as: Active 2017 Medical Lopressor) Center Acetaminophen 300 MG 1 tab, PO, No Longer [place] / Codeine Phosphate Q4H, PRN Active 2016 Med ical 15 MG Oral Tablet Pain Score Jordi ter 4-6, # 12 tab, 0 Refill(s) cephalexin 500 mg 500 mg = 1 Active [place] oral capsule cap, PO, 2017 Medical TID, # 15 Center cap, 0 Refill(s) acetaminophen-codein Notes: Do No Longer [place] e #3 not exceed Active 2016 Medical 4gm/day of Center acetaminophe n. (Same as: Tylenol with Codeine # 3) dabigatran etexilate 150 mg = 1 On Hold [place] 150 MG Oral Capsule cap, PO, 2017 Med ical [Pradaxa] Q12H, # 180 Center cap, 3 Refill(s) Metformin 850 mg, PO, Active [place] QAM, 0 2016 Medical Refill(s) Center valsartan 320 mg 320 mg = 1 Active [place] oral tablet tab, PO, 2017 Medical Daily, # 90 Center tab, 0 Refill(s) Glipizide 10 MG Oral 10 mg = 1 Active H [place] Tablet tab, PO, 2017 Medical BID-Before [place] Meals, # 180 tab, 1 Refill(s) sodium chloride 0.9% 1,000 mL, No Longer [place] 1000 ml INJ 1,000 mL Rate: 50 Active 2017 Me dical ml/hr, [place] Infuse over: 20 hr, Route: IV, Dosing Weight 116.364 kg, Total Volume: 1,000, Start date: 09/11/16 11:04:00 CDT, Duration: 30 day, Stop date: 10/11/16 11:03:00 CDT Phenylephrine 1 drp, Inactive Hydrochloride 25 Route: [address] [facility] [address] MG/ML Ophthalmic Operative Solution [Mydfrin] Eye, Q5Min, Drug form: SOLN, Start date: 03/06/14 11:05:00, Duration: 3 doses or times, Stop date: 03/06/14 11:15:00 Cyclopentolate Notes: (Same Inactive hydrochloride 10 As: [address] [facility] [address] MG/ML Ophthalmic Cyclogyl) Solution [Cyclogyl] Tropicamide 10 MG/ML Notes: (Same Inactive 03/06 Ophthalmic Solution As: 2014 [place] [Mydriacyl] Mydriacyl, Opticyl, Tropicacyl) canagliflozin 100 MG 100 mg = 1 Active Oral Tablet tab, PO, 2014 [facility] [Invokana] Daily, 0 Refill(s) lisinopril 20 mg 20 mg = 1 Active oral tablet tab, PO, 2014 [facility] Daily, 0 Refill(s) glyBURIDE 5 mg oral 10 mg = 2 Active tablet tab, PO, 2014 [facility] BID, 0 Refill(s) Aspirin Low Dose 81 PO, Daily, 0 Active mg oral tablet Refill(s) 2014 [facility] Hydrochlorothiazide 1 tab, PO, Active H 50 MG / Triamterene Daily, # 30 2014 [facility] 75 MG Oral Tablet tab, 0 Refill(s) Allergies, Adverse Reactions, Alerts Substance Category Reaction Severity Reaction Status Date Comments S ource type Reported NKFA Assertion Drug Active [facility] as allergy Medical Center Immunizations No Data Provided for This Section Results Order Name Results Value Reference Date Interpretation Comments Kathia rce Range CHEM PANEL Phosphorus 3.1 2.5 - 4.5 09/12 [facility] CHEM PANEL Magnesium 2.6 1.8 - 2.4 09/12 [facility] ELECTROLYTE AGAP 11.1 10.0 - 08 [facility] S 20.0 [facility] ELECTROLYTE Potassium 4.1 3.5 - 5.1 09/12 [facility] ELECTROLYTE Chloride Lvl 105 95 - 109 09/12 Christoph as [facility] ELECTROLYTE CO2 25 24 - 32 09/12 [facility] ELECTROLYTE eGFR 74 09/12 Result [facility] Comment: The Medical eGFR is Center calculated [...] ELECTROLYTE BUN 16 7 - 22 09/12 [facility] ELECTROLYTE Glucose Lvl 177 70 - 99 09/12 [facility] ELECTROLYTE Calcium Lvl 8.7 8.5 - 10.5 09/12 [place] [facility] ELECTROLYTE Creatinine 1.00 0.50 - 09/12 [facility] S Lvl 1.40 [facility] ELECTROLYTE Sodium Lvl 137 135 - 145 09/12 [facility] HEMATOLOGY Plt Morph Normal 09/12 [facility] (09/12/16 5:03 AM) [facility] HEMATOLOGY Bands 0.0 0.0 - 11.0 09/12 [facility]2016 [facility] HEMATOLOGY Atypical 0.0 <=0.0 % 09/12 [facility] Lymphs [facility] HEMATOLOGY Monocytes 17.0 2.0 - 12.0 09/12 [facility] HEMATOLOGY RBC Morph Normal 09/12 [facility] (09/12/16 5:03 AM) [facility] HEMATOLOGY Eosinophils 1.0 0.0 - 4.0 09/12 [facility] HEMATOLOGY Lymphocytes 27.0 20.0 - 09/12 [place] 40.0 [facility] HEMATOLOGY Segs-Bands # 4.8 1.5 - 8.1 09/12 [facility] HEMATOLOGY Lymphocytes 2.3 1.0 - 5.5 09/12 [facility] # [facility] HEMATOLOGY Segs 55.0 45.0 - 09/12 75.0 [facility] HEMATOLOGY Eosinophils 0.1 0.0 - 0.5 09/12 [place] # /2016 [facility] HEMATOLOGY Monocytes # 1.5 0.0 - 0.8 09/12 [place] /2016 [facility] HEMATOLOGY MPV 7.7 7.4 - 10.4 09/12 [facility] HEMATOLOGY MCH 29.8 27.0 - 09/12 31.0 [facility] HEMATOLOGY MCV 88.2 80.0 - 09/12 [place] 94.0 [facility] HEMATOLOGY Platelet 177 133 - 450 09/12 [facility] HEMATOLOGY RDW 14.7 11.5 - 09/12 14.5 [facility] HEMATOLOGY MCHC 33.8 32.0 - 09/12 36.0 [facility] HEMATOLOGY RBC 3.97 4.70 - 09/12 6.10 [facility] HEMATOLOGY Hgb 11.8 14.0 - 09/12 18.0 [facility] HEMATOLOGY WBC 8.7 3.7 - 10.4 09/12 [facility] HEMATOLOGY Hct 35.0 42.0 - 09/12 54.0 [facility] CHEM PANEL eGFR 68 09/11 Result Comment: The Medical eGFR is Center calculated [...] CHEM PANEL AGAP 13.8 10.0 - 09/11 20. Medical Center CHEM PANEL Calcium Lvl 9.0 8.5 - 10.5 09/11 [facility] CHEM PANEL CO2 26 24 - 32 09/11 [facility] CHEM PANEL Chloride Lvl 104 95 - 109 09/11 [facility] CHEM PANEL Potassium 3.8 3.5 - 5.1 09/11 [facility] CHEM PANEL Sodium Lvl 140 135 - 145 09/11 [facility] CHEM PANEL Creatinine 1.07 0.50 - 09/11 [place] Lvl 1.40 [facility] CHEM PANEL BUN 13 7 - 22 09/11 [facility] CHEM PANEL Glucose Lvl 146 70 - 99 09/11 [facility] BLOOD BANK ABO/Rh O POS 09/11 [facility] RESULTS [facility] BLOOD BANK Antibody Negative 09/11 [facility] RESULTS [facility] (09/11/16 11:12 AM) [facility] CHEM PANEL Phosphorus 3.3 2.5 - 4.5 09/11 [facility] CHEM PANEL Magnesium 1.6 1.8 - 2.4 09/11 [facility] ELECTROLYTE AGAP 9.7 10.0 - 08 S 20.0 [facility] ELECTROLYTE eGFR 69 09/11 Result Comment: The Medical eGFR is Center calculated [...] ELECTROLYTE CO2 28 24 - 32 09/11 [facility] ELECTROLYTE Chloride Lvl 102 95 - 109 09/11 Christoph as S [facility] ELECTROLYTE Potassium 3.7 3.5 - 5.1 08 [facility] S Lvl /2016 [facility] ELECTROLYTE Calcium Lvl 8.9 8.5 - 10.5 09/11 [place] [facility] ELECTROLYTE Sodium Lvl 136 135 - 145 09/11 [place] [facility] ELECTROLYTE Creatinine 1.06 0.50 - 08 [facility] S Lvl 1.40 /2016 [facility] ELECTROLYTE BUN 15 7 - 22 08 [facility] ELECTROLYTE Glucose Lvl 87 70 - 99 09/11 [facility] HEMATOLOGY Hct 33.1 42.0 - 08 [facility] 54.0 [facility] HEMATOLOGY Platelet 188 133 - 450 09/11 [facility] HEMATOLOGY Hgb 11.0 14.0 - 09/11 18.0 [facility] HEMATOLOGY MPV 7.5 7.4 - 10.4 09/11 [facility] HEMATOLOGY MCV 89.2 80.0 - 09/11 94.0 [facility] HEMATOLOGY MCH 29.5 27.0 - 08 31.0 [facility] HEMATOLOGY RBC 3.72 4.70 - 08 6.10 [facility] HEMATOLOGY RDW 14.7 11.5 - 08 14.5 [facility] HEMATOLOGY WBC 8.2 3.7 - 10.4 09/11 [facility] HEMATOLOGY MCHC 33.1 32.0 - 08 [place] 36.0 [facility] HEMATOLOGY PT 16.6 12.0 - 08 [place] 14.7 [facility] HEMATOLOGY INR 1.32 0.85 - 08 [place] 1.17 [facility] HEMATOLOGY PTT 43.0 22.9 - 08 [place] 35.8 [facility] HEMATOLOGY Monocytes # 1.6 0.0 - 0.8 09/11 a [facility] HEMATOLOGY Eosinophils 0.3 0.0 - 0.5 09/11 [place] # /2016 [facility] HEMATOLOGY Lymphocytes 1.7 1.0 - 5.5 09/11 [place] # /2016 [facility] HEMATOLOGY Basophils 0.5 0.0 - 1.0 09/11 [facility] HEMATOLOGY Segs-Bands # 4.5 1.5 - 8.1 09/11 [place] as [facility] HEMATOLOGY Eosinophils 3.4 0.0 - 4.0 09/11 [place] [facility] HEMATOLOGY Segs 55.3 45.0 - 09/11 [place] 75.0 /2016 [facility] HEMATOLOGY Lymphocytes 21.2 20.0 - 09/11 [place] 40.0 [facility] HEMATOLOGY Monocytes 19.6 2.0 - 12.0 09/11 [facility] CHEM PANEL Calcium Lvl 9.4 8.5 - 10.5 03/05 [facility] CHEM PANEL CO2 26 24 - 32 03/05 [facility] CHEM PANEL eGFR 40 03/05 <sup>1</sup>R esult [facility] Comment: The eGFR is calculated using the [...] PANEL BUN 45 7 - 22 03/05 [facility] CHEM PANEL Glucose Lvl 100 70 - 99 03/05 <sup>2</sup>I nterpretive [facility] Data: Adult reference range values reflect the clinical guidelines
of the [employer]. CHEM PANEL Potassium 4.4 3.5 - 5.1 03/05 [facility] CHEM PANEL Chloride Lvl 106 95 - 109 03/05 [facility] CHEM PANEL Creatinine 1.7 0.5 - 1.4 03/05 [facility] CHEM PANEL Sodium Lvl 139 135 - 145 03/05 [facility] CHEM PANEL AGAP 11.4 10.0 - 03/05 [facility] 20.0 /2014 [facility] HEMATOLOGY MPV 7.3 7.4 - 10.4 03/05 [facility] HEMATOLOGY MCHC 33.9 32.0 - 03/05 36.0 /2014 [facility] Platelet 198 133 - 450 03/05 [facility] HEMATOLOGY Hgb 13.7 14.0 - 03/05 [facility] 18.0 /2014 [facility] HEMATOLOGY RDW 14.6 11.5 - 03/05 [facility] 14.5 /2014 [facility] HEMATOLOGY Hct 40.4 42.0 - 03/05 [facility] 54.0 /2014 [facility] HEMATOLOGY MCH 31.5 27.0 - 03/05 [facility] 31.0 /2014 [facility] HEMATOLOGY MCV 92.8 80.0 - 03/05 94.0 /2014 [facility] HEMATOLOGY RBC 4.35 4.70 - 03/05 6.10 /2014 [facility] WBC 9.4 3.7 - 10.4 03/05 [facility] HEMATOLOGY Eosinophils 2.4 0.0 - 4.0 03/05 [facility] HEMATOLOGY Monocytes 14.6 2.0 - 12.0 03/05 [facility] HEMATOLOGY Segs-Bands # 5.5 1.5 - 8.1 03/05 [facility] HEMATOLOGY Lymphocytes 24.1 20.0 - 03/05 40.0 /2014 [facility] HEMATOLOGY Segs 58.6 45.0 - 03/05 75.0 /2014 [facility] HEMATOLOGY Basophils # 0.0 0.0 - 0.2 03/05 [facility] HEMATOLOGY Eosinophils 0.2 0.0 - 0.5 03/05 /2014 [facility] HEMATOLOGY Basophils 0.3 0.0 - 1.0 03/05 [facility] HEMATOLOGY Monocytes # 1.4 0.0 - 0.8 03/05 [facility] Lymphocytes 2.3 1.0 - 5.5 03/05 /2014 [facility] Pathology Reports No Data Provided for This Section Diagnostic Reports Report Value Date Source Chest 2 views DX EXAM: XR CHEST 2 VIEWS 09/12/2016 [facility] DATE: 09/12/2016 3:00 AM CDT Cente r INDICATION: Line Placement - Status post PPM/ICD Implantation FINDINGS: PA and lateral views of the est are compared to yesterday evening. The cardiomediastinal silhou ette is stable. A bipolar left subclavian pacemaker has tips over the right atrium and right ventricle, stable. Platelike atelectasis is see n in the bilateral lower lobes. There are tiny bilateral pleural effusions. IMPRESSION: 1. Stable positioning of the bipolar left subcla vian pacemaker. 2. Bilateral lower lobe platelike atelectasis. 3. Tiny bilateral pleural effusions. Chest 1 v for Chest one view, 09/11/2016 at 1752 hours 017 [facility] Placement DX HISTORY: 71-year-old man with line placement. Center FINDINGS: A single AP semier ect view of the chest is submitted without a prior study for comparison. The cardiomediastinal silhou ette is within normal size limits. A bipolar left subclavian pacemaker has tips over the right atrium and right ventricle. Platelike atelectasis is seen in the left lower lob e. The costophrenic sulci are sharp, without eff usions. IMPRESSION: The tips of the bipolar left subclavian pacemaker overlie the right atrium and right ventricle. Consultation Notes No Data Provided for This Section Discharge Summaries No Data Provided for This Section History and Physicals No Data Provided for This Section Vital Signs Vital Sign Value Date Comments Source Temperature Oral (F) 97.9 F 09/12/2016 [facility] Respitory Rate 23 09/12/2016 [facility] Systolic (mm Hg) 143 09/12/2016 [facility] Diastolic (mm Hg) 68 09/12/2016 [facility] Respitory Rate 20 09/12/2016 [facility] Systolic (mm Hg) 148 09/12/2016 [facility] Diastolic (mm Hg) 73 09/12/2016 [facility] Respitory Rate 21 09/12/2016 [facility] Systolic (mm Hg) 129 09/12/2016 [facility] Diastolic (mm Hg) 61 09/12/2016 [facility] Temperature Oral (F) 97.9 F 09/12/2016 [facility] Temperature Oral (F) 97.6 F 09/12/2016 [facility] BMI Calculated 34.79 09/11/2016 [facility] Weight 116.364 09/11/2016 [facility] Height 182.88 cm 09/11/2016 [facility] Systolic (mm Hg) 100 03/06/2014 [facility] Diastolic (mm Hg) 55 03/06/[address] [facility] [address] Respitory Rate 16 03/06/2014 [facility] Diastolic (mm Hg) 75 03/06/[address] [facility] [address] Systolic (mm Hg) 100 03/06/2014 [facility] Respitory Rate 17 03/06/2014 [facility] Diastolic (mm Hg) 49 03/06/[address] [facility] [address] Systolic (mm Hg) 101 03/06/2014 [facility] Respitory Rate 14 03/06/2014 [facility] Heart Rate 97 03/06/2014 [facility] Heart Rate 96 03/05/2014 [facility] BMI Calculated 38.83 03/05/2014 [facility] Weight 126.3 03/05/2014 [facility] Height 180.34 cm 03/05/2014 [facility] Encounters Location Location Encounter Encounter Reason Attending ADM DC Stat us Source Details Type Number For Provider Date Date Visit [facility] OBS Day [id number] Jean Carlos 03/06 03/06 [facility] [id number] Eddie 09/11 09/12 [facility] Jacqu[place] /2016 [facility] Procedures Procedure Code Date Perfomer Comments Source Arthroplasty of [id number] 2013 tight [facility] knee<sup>1</sup> [facility] Procedure<sup>2</s [id number] [place] toe ,i/[address] Assessment and Plan Assessment and Plan Date Source Extracted from:Title: CCU note 09/12/2016 [facility] Author: Eddie Roper MD Date: 09/12/16 The patient was seen and examined with t [place] resident. The relevant lab results, imaging and EKGs were personally reviewed, and the medications were reconciled. I agree with above mentioned assessment and plan. -- Doing well today, send home Extracted from:Title: [facility] CCU Note Author: Daniel Bergman MD Date: 09/11/16 Patient: LEVI COLEY KRYSTA MR N: [id number] Age: 71 years Sex: Male : 1945 [...] vision deficits) and HTN who reports to [facility] for PPM inser tion, now s/p [...] Cardiovascular: No chest pain, No palpitations, No peripher al edema. Gastrointestinal: No nausea, No abdominal pain. [...] 1 tab, PO, Q4H, PRN: Pain Score 4- 6 ceFAZolin: 1 gm, IVPB, ABXQ8H diltiazem 25 mg/5 ml VL 125 mg + sodium chloride 0.9% INJ 100 mL: Titrate, IV, Stop: 10/11/16 17:50:00 CDT metoprolol tartrate: 25 mg, 1 tab, PO, Q12H sodium chloride 0.9% 1000 ml INJ 1,000 m L: 50 ml/hr, IV, Stop: 10/11/16 11:03:00 CDT tramadol 50 mg oral tablet: 50 mg, 1 tab, PO, Q4H, PRN: Pain Score 1-3 valsartan: 320 mg, 2 tab, PO, Daily Suspended Pradaxa: 150 mg, 1 cap, PO, Q12H Prescriptions Prescribed acetaminophen-codeine 300 mg-15 mg oral tablet: 1 tab, PO, Q4H, PRN: Pain Score 4-6, 12 tab, 0 Refill(s) cephalexin 500 mg oral capsule: 500 mg, 1 cap, PO, TID, 15 c ap, 0 Refill(s) metoprolol tartrate 25 mg oral tablet: 25 mg, PO, Q12H, 60 t ab, 1 Refill(s) tramadol 50 mg oral tablet: 50 mg, PO, Q 4H, PRN: Pain Score 1-3, 10 tab, 0 Refill(s) Documented Medications Documented glipiZIDE 10 mg oral tablet: 10 mg, 1 ta b, PO, BID-Before Meals, 180 tab, 1 Refill(s) metFORMIN: 500 mg, PO, Bedtime, 0 Refill(s) metFORMIN: 850 mg, PO, QAM, 0 Refill(s) valsartan 320 mg oral tablet: 320 mg, 1 tab, PO, Daily, 90 t ab, 0 Refill(s) Suspended Pradaxa 150 mg oral capsule: 150 mg, 1 cap, PO, Q12H, 180 ca p, 3 Refill(s), Medications (7) Active Scheduled: (3) ceFAZolin 1 gm VL INJ 1 gm, IVPB, ABXQ8H metoprolol tartrate 25 mg TAB 25 mg 1 tab, PO, Q12H valsartan 160 mg tab 320 mg 2 tab, PO, Daily Continuous: (2) diltiazem 25 mg/5 ml VL 125 mg + sodium chloride 0.9% INJ 100 mL 125 mg 25 mL, IV sodium chloride 0.9% 1000 ml INJ 1,000 mL 1,000 mL, IV, 50 ml/hr PRN: (2) acetaminophen-codeine 300-30 mg TAB 1 tab, PO, Q4H traMADol 50 mg TAB 50 mg 1 tab, PO, Q4H Problem list: All Problems DM - Diabetes mellitus / SNOMED CT 349622115 / Confirmed Hypertension / SNOMED CT 06117041 / Confirmed, Active Problems (2) DM - Diabetes mellitus Hypertension Histories Past Medical History: Active Hypertension (97969900) DM - Diabetes mellitus (956386384) Resolved Atrial fibrillation (2329298281): Resolved. Bradycardia (6849532306): Resolved. CHF (congestive heart failure) (666794868): Resolved. Syncope (9146968018): Resolved. Dizziness (2843726671): Resolved. Chest pain (11245113): Resolved. CVA (cerebral vascular accident) (348795174): Resolved. Edema (283662180): Resolved. Family History: History is unknown. Procedure history: Arthroplasty of knee (72302259). Comments: 03/05/2014 11:13 - Sarahi Adrian LVN 2013 tight Procedure (054013519). Comments: 03/05/2014 11:13 - Sarahi Adrian LVN [...] Intake Output Balance 09/11/2016 7a-3p 100.00 0.00 100 .00 3p-11p 745.00 3950.00 -3205.00 As of 21:16 11p-7a 0.00 0.00 0.00 Totals 845.00 3950.00 -3105.00 09/10/2016 7a-3p 0.00 0.00 0.00 3p-11p 0.00 0.00 0.00 11p-7a 0.00 0.00 0.00 Totals 0.00 0.00 0.00 09/09/2016 7a-3p 0.00 0.00 0.00 3p-11p 0.00 0.00 0.00 11p-7a 0.00 0.00 0.00 Totals 0.00 0.00 0.00 VS/Measurements Vital Signs (last 24 hrs) Last Charted _ Heart Rate Apical 92 bpm (SEP 11 20:45) SBP H 147mmHg (SEP 11 20:45) DBP 83 mmHg (SEP 11 20:45) SpO2 97 % (SEP 11 20:45) Weight 116.36 kg (SEP 11 11:02) Height 182.88 cm (SEP 11 11:02) BMI [...] NC/AT, no scleral icterus, moist mucus membranes, PER RL Neck: Supple, NT, No LAD Cardio: Regular rate and rhythm, no murm urs, +s1s2, no gallops. Extremities with good peripheral pulsations. No JVD Chest: Pressure dressing in place over P PM insertion site, no active bleeding noted Pulm: Clear to auscultation bilaterally, no wheezes or crack les Abdomen: Normal bowel sounds, soft, non-tender, non-distende d Extremities: No edema. No deformities/amputations Skin: Warm [...] Tubes, and Drains: 09/11/2016 20:15 Peripheral Lines: Antec ubital Left 20 gauge Over the needle catheter 09/11/2016 17:30 Indwelling Urinary Catheter: Urethral [address] [facility] . Impression and Plan Assessment: Mr. Coley is a 71 year old white male wit h PMH of atrial fibrillation, sick sinus syndrome, symptomatic bradycardia, DM, CVA (2014, peripheral vision deficits) and HTN who reports to [facility] for PPM inse rtion, now s/p dual chamber PPM, noted t o have atrial flutter after procedure, now weaning [...] - Follow-up in 2 weeks with primary Continuous Improvement Coordinator. A-flutter - Continue to wean nicardipine gtt [...] MD Resident Physician Department of Internal Medicine [facility] CCU/CIMU Daily Patient Safety Checklist Yes No CAD/CHF/PCI Requirements: 1. ASA x ND/CAD/PCI/CABG 2. DELANEY Inhibitor or ARB x CHF/DIABETES 3. Beta Rachid x POST ND/CHF/PCI 4. Statin x CAD/PCI/CABG 5. DAPT post [...] Case Management/Social Work Consult? x Diagnosis Bradycardia (TTR88-WW R00.1, Working, Medical). Atrial flutter (FOI23-MC I48.92, Working, Medical). DM - Diabetes mellitus (WUJ88-MI E13.9, Working, Medical). CVA (cerebral vascular accident) (RIP77-QC I63.9, Working, edical). Hypertension (EAI36-OE I10, Working, Medical). Addendum by Eddie Roper MD on 09/12/2016 10:39 The patient was seen and examined with t resident. The relevant lab results, imaging and EKGs were personally reviewed, and the medications were reconciled. I agree with above mentioned assessment and plan. Plan of Care No Data Provided for This Section Social History Social History Date Source Social History TypeResponse 03/05/2014 [facility] Substance Abuse Use: None Sexual 1 Exercise 2 Employment/School 3 Alcohol Use: Never, Previous treatment: None Smoking Status Former smoker, Type: Cigars, Exposure to Tobacco Smoke None, Cigarette Smoking Last 365 Days Yes, Reg Smoking Cessation Counseling Yes [id number] comments Social History TypeResponse 03/05/2014 [facility] Substance Abuse Use: None. Sexual 1 Exercise 2 Employment/School 3 Alcohol Never, Previous treatment: None. Smoking Status Former smoker; Type: Cigars; Exposure to Tobacco Smoke None; Cigarette Smoking Last 365 Days Yes; Reg Smoking Cessation Counseling Yes [id number] comments Family History No Data Provided for This Section Advance Directives No Data Provided for This Section Functional Status No Data Provided for This Section
--- OUTSIDE RECORDS SUMMARY | 2019-10-02 19:09 | XMS REPORT | Continuity of Care Document ---
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 2- Yuliya kes - 00:00: Medical 00 Hanna DARRELL (acute DARRELL (acute Disease Active 2016-[address] kidney kidney 2-23 [facility] - [facility] injury) 00:00: Medical 00 Hanna Pneumonia Pneumonia Disease Active 2016-[address] [facility] 00 Hanna PAROXYSMAL Diagnosis Active 2016-09-14 Memoria AFIB, 08-28 10:10:00 l BRADYCARDI 00:00: Pepe smith A PAROXYSMAL 00 AFIB, BRADYCARDI A Active 08/28/2016 [facility] CCL/DUAL Diagnosis Active 2016-08-31 Tracy DONALDSON 08-28 15:00:00 l IMPLANT/BS CCL/DUAL 00:00: Maurizio rmann /DX: PMAKER 00 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 Active 08/28/2016 [facility] 362.56 Diagnosis Active 2014-06-04 Mem oria EPIRETINAL 1-07 10:13:00 l MEMBRANE 362.56 00:00: Pepe n LEFT EYE EPIRETINAL 00 MEMBRANE LEFT EYE Active 02/14/2014 [facility] Atrial Problem Resolve 2016-09-15 Niko reynold fibrillati d 00:18:55 l on Atrial Tino (disorder) fibrillati on (disorder) Resolved Problem 09/15/2016 [facility] Chest pain Problem Resolve 2016-09-15 Memoria (finding) d 00:18:55 l Chest Tino pain (finding) Resolved Problem 09/15/2016 [facility] Congestive Problem Resolve 2016-09-15 Memoria heart d 00:18:55 l failure Tino (disorder) Congestive heart failure (disorder) Resolved Problem 09/15/2016 [facility] Cerebrovas Problem Resolve 2016-09-15 Memoria cular d 00:18:55 l accident Plessis (disorder) Cerebrovas cular accident (disorder) Resolved Problem 09/15/2016 [facility] Dizziness Problem Resolve 2016-09-15 M emoria (finding) d 00:18:55 l Tino Dizziness (finding) Resolved Problem 09/15/2016 [facility] Edema Problem Resolve 2016-09-15 Niko reynold (finding) d 00:18:55 l Edema Tino (finding) Resolved Problem 09/15/2016 [facility] Syncope Problem Resolve 2016-09-15 Mem oria (disorder) d 00:18:55 l Syncope Plessis (disorder) Resolved Problem 09/15/2016 [facility] Bradycardi Problem Resolve 2016-09-15 Memoria a d 00:18:55 l (disorder) Pepe n Bradycardi a (disorder) Resolved Problem 09/15/2016 [facility] Diabetes Problem Active 2016-09-15 Mem oria mellitus 00:18:55 l (disorder) Diabetes He rmann mellitus (disorder) Active Problem 09/15/2016 [facility] Hypertensi Problem Active 2016-09-15 M emoria ve 00:18:55 l disorder, Tino systemic Hypertensi arterial ve (disorder) disorder, systemic arterial (disorder) Active Problem 09/15/2016 [facility] Allergies, Adverse Reactions, Alerts Allergy Allergy Status Severity Reaction(s) Onset Inactive Treating Comm ents Source Name Type Date Date Clinician NKFA NKFA Active Lupe Jiménez Family History Family Member Diagnosis Comments Start Date Stop Date Source Natural brother Cancer [facility] Natural brother Diabetes [facility] Natural brother Hypertension [facility] Natural mother Heart disease [facility] Natural sister Hypertension [facility] Social History Social Habit Start Date Stop Date Quantity Comments Source Sex Assigned At [facility] Social History 2014-03-05 2014-03-05 [facility] 17:12:04 17:12:04 Smoking Status Start Date Stop Date Source Former smoker 2017-02-06 00:00:00 2017-02-06 00:00:00 [facility] Medications Ordered Filled Start Stop Current Ordering Indication Dosage Frequency Signature Comments Components Source Medication Medication Date Date Medication? Clinician (SIG) Name Name potassium Yes 20meq QD Take 1 [facility] SA 02-08 tablet (20 Yuliay kes - (K-DUR,KLOR 00:00: mEq total) Medical -CON) 20 00 by mouth Center MEQ tablet daily. glipiZIDE Yes 10mg Take [address] [facility] (GLUCOTROL) -01 tablet (10 Yuliya kes - 10 MG 00:00: mg total) Medical tablet 00 by mouth 2 Center (two) times daily before meals. Diltiazem No 60 mg, Memori a 09-13 Route: PO, l 14:00: Drug form: TAB, Daily, Dosing Weight 116.364, kg, Start date: 09/13/16 9:00:00 CDT, Duration: 30 day, Stop date: 10/12/16 9:00:00 CDT metoprolol No Notes: Memor ia tartrate 09-13 (Same as: l 02:00: Lopressor) Insulin No 60 Memoria regular 09-12 units) l 19:37: WASTE: F/P Tino 00 - Black; E - Municipal Trash Bin Stable for 28 days at room temperatur e Expires in days from ____Date Acetaminoph Yes 1 tab, PO, Memoria en 300 MG / 09-12 Q4H, PRN l Codeine 18:19: Pain Score Herm leonard Phosphate 00 4-6, 0 30 MG Oral Refill(s) Tablet Dextrose No 25 gm, 50 Niko reynold 50% Syringe 8-05 mL, Route: l 16:50: IVP, Drug Form: INJ, Dosing Weight 116.364, kg, PRN, PRN Blood Glucose Results, Start date: 09/12/16 11:50:00 CDT, Duration: 30 day, Stop date: 10/12/16 11:49:00 CDT Glucagon No 1 mg, Memoria 09-12 Route: IM, l 16:50: Drug form: Plessis PDR/INJ, PRN, Dosing Weight 116.364, kg, PRN Blood Glucose Results, Start date: 09/12/16 11:50:00 CDT, Duration: 30 day, Stop date: 10/12/16 11:49:00 CDT valsartan No Notes: Memori a 09-12 Same as l 14:00: Diovan Cefazolin No Notes: Memori a 09-12 (Same As: l 04:00: Ancef Kefzol) MEDICATION WASTE Product Size: 1000 mg Product Wasted: _0_ mg Calcium No Notes: Memoria Gluconate 09-12 WASTE: F/P l 03:33: - Sink; - Municipal Trash Bin Magnesium No Notes: Memori a Oxide 09-12 (Same as: l 03:33: Mag-Ox 400) Magnesium oxide [id number] g elemental magnesium Dose=____m g magnesium oxide (___mg elemental magnesium) Magnesium No Notes: Memori a Sulfate 09-12 WASTE: F/P l 03:33: - Sink; E - Municipal Trash Bin sodium No 15 mmol, 5 Memor ia phosphate 8-05 mL, Route: l 03:33: IVPB, PRN, Dosing Weight 116.364, kg, PRN Abnormal Lab Result, For NON-ICU Patients Only., Start date: 09/11/16 22:33:00 CDT, Duration: 30 day, Stop date: 10/11/16 22:32:00 CDT Potassium No Notes: Memori a Chloride 8-05 (Same as: l 03:33: KCL) Tino 00 Infuse over 2 hours. potassium No Notes: Memori a phosphate-s 8-05 (Same as: l odium 03:33: Phos-NaK) Plessis phosphate 00 Each 1.5 250 mg-280 gm pkt has mg-160 mg 250mg oral powder phosphorou for s. Mix reconstitut w/2.5oz ion water and stir. potassium No Notes: Memori a phosphate 8-05 (Same as: l 03:33: K Tino 00 Phosphate. ) 1 mMol phoshate has 1.47 mEq potassium Infuse over 4 hours Magnesium No Notes: Memori a Sulfate 8 WASTE: F/P l 03:22: - Sink; E Tino - Municipal Trash Bin Magnesium No Notes: Memori a Sulfate 8-05 WASTE: F/P l 03:21: - Sink; E Tino 00 - Municipal Trash Bin Potassium No Notes: Memori a Chloride 8-05 (Same as: l 03:21: K-Dur 20) Plessis 00 "Do Not Crush" With food and full glass of water Pradaxa No Notes: DO Memor ia - NOT break, l 02:00: chew or open capsules for administra tion. metoprolol No 25 mg, Memor ia tartrate 09-12 Route: PO, l 02:00: Drug form: Tino 00 TAB, Q12H, Dosing Weight 116.364, kg, Start date: 09/11/16 21:00:00 CDT, Duration: 30 day, Stop date: 10/11/16 9:00:00 CDT Lasix No 20 mg, Memoria 09-11 Route: l 23:38: IVP, Drug form: INJ, ONCE, Dosing Weight 116.364, kg, Start date: 09/11/16 18:38:00 CDT, Stop date: 09/11/16 18:38:00 CDT Diltiazem No Notes: Memori a 09-11 (Same as: l 22:51: Cardizem) tramadol No 50 mg, PO, Mem oria hydrochlori 09-11 Q4H, PRN l de 50 MG 22:32: Pain Score Her lea Oral Tablet 00 1-3, # 10 tab, 0 Refill(s) tramadol No Notes: Not Mem oria hydrochlori 09-11 to exceed l de 50 MG 22:31: 400mg/day. Her lea Oral Tablet 00 (Same As: Ultram) metoprolol Yes 25 mg, PO, M emoria tartrate 25 09-11 Q12H, # 60 l mg oral 22:15: tab, 1 Plessis tablet 00 Refill(s) metoprolol No Notes: Memor ia tartrate 09-11 (Same as: l 22:15: Lopressor) Acetaminoph No 1 tab, PO, Memoria en 300 MG / 09-11 Q4H, PRN l Codeine 22:00: Pain Score Herm leonard Phosphate 00 4-6, # 12 15 MG Oral tab, 0 Tablet Refill(s) cephalexin Yes 500 mg = 1 M emoria 500 mg oral 09-11 cap, PO, l capsule 22:00: TID, # 15 Odalys nn 00 cap, 0 Refill(s) acetaminoph No Notes: Do M emoria en-codeine 09-11 not exceed l #3 21:59: 4gm/day of 00 acetaminop hen. (Same as: Tylenol with Codeine # 3) dabigatran Yes 150 mg = 1 M emoria etexilate 8-04 cap, PO, l 150 MG Oral 16:33: Q12H, # Her lea Capsule 00 180 cap, 3 [Pradaxa] Refill(s) Metformin Yes 850 mg, Memor ia 804 PO, QAM, 0 l 16:33: Refill(s) Tino 00 valsartan Yes 320 mg = 1 Me moria 320 mg oral 8-04 tab, PO, l tablet 16:33: Daily, # Tino 00 90 tab, 0 Refill(s) Glipizide Yes 10 mg = 1 Mem oria 10 MG Oral 804 tab, PO, l Tablet 16:33: BID-Before Odalys nn 00 Meals, # 180 tab, 1 Refill(s) sodium No 1,000 mL, Memori a chloride 09-11 Rate: 50 l 0.9% 1000 16:04: ml/hr, Pepe n ml INJ 00 Infuse 1,000 mL over: 20 hr, Route: IV, Dosing Weight 116.364 kg, Total Volume: 1,000, Start date: 09/11/16 11:04:00 CDT, Duration: 30 day, Stop date: 10/11/16 11:03:00 CDT Phenylephri No 1 drp, Niko reynold ne 03-06 Route: l Hydrochlori 17:05: Operative H ermann de 25 MG/ML 00 Eye, Ophthalmic Q5Min, Solution Drug form: [Mydfrin] SOLN, Start date: 03/06/14 11:05:00, Duration: 3 doses or times, Stop date: 03/06/14 11:15:00 Cyclopentol No Notes: Niko reynold ate 03-06 (Same As: l hydrochlori 17:05: Cyclogyl) H ermann de 10 MG/ML Ophthalmic Solution [Cyclogyl] Tropicamide No Notes: Niko reynold 10 MG/ML 03-06 (Same As: l Ophthalmic 17:05: Mydriacyl, H ermann Solution 00 Opticyl, [Mydriacyl] Tropicacyl ) canaglifloz Yes 100 mg = 1 Memoria in 100 MG - tab, PO, l Oral Tablet 17:21: Daily, 0 He rmann [Invokana] 00 Refill(s) lisinopril Yes 20 mg = 1 Me moria 20 mg oral -26 tab, PO, l tablet 17:21: Daily, 0 Plessis 00 Refill(s) glyBURIDE 5 Yes 10 mg = 2 M emoria mg oral -26 tab, PO, l tablet 17:21: BID, 0 Plessis 00 Refill(s) Aspirin Low Yes PO, Daily, Memoria Dose 81 mg 1-26 0 l oral tablet 17:21: Refill(s) H ermann 00 Hydrochloro 2015- Yes 1 tab, PO, Memoria thiazide 50 1-26 Daily, # l MG / 17:21: 30 tab, 0 Tino Triamterene 00 Refill(s) 75 MG Oral Tablet Vital Signs Vital Name Observation Time Observation Value Comments Source Temperature Oral (F) 2016-09-12 20:06:00 97.9 F [facility] Tino Respitory Rate 2016-09-12 19:00:00 Memori al Plessis Systolic (mm Hg) 2016-09-12 19:00:00 Niko rial Plessis Diastolic (mm Hg) 2016-09-12 19:00:00 Mem orial Plessis Respitory Rate 2016-09-12 18:00:00 Memori al Itno Systolic (mm Hg) 2016-09-12 18:00:00 Niko rial Plessis Diastolic (mm Hg) 2016-09-12 18:00:00 Mem orial Tino Respitory Rate 2016-09-12 17:00:00 Memori al Plessis Systolic (mm Hg) 2016-09-12 17:00:00 Niko rial Tino Diastolic (mm Hg) 2016-09-12 17:00:00 Mem orial Tino Temperature Oral (F) 2016-09-12 12:51:00 97.9 F [facility] [place] Temperature Oral (F) 2016-09-12 10:38:00 97.6 F [facility] [place] BMI Calculated 2016-09-11 16:02:00 Memori al Plessis Weight 2016-09-11 16:02:00 [facility] Plessis Height 2016-09-11 16:02:00 182.88 cm [facility] Plessis Systolic (mm Hg) 2014-03-06 20:30:00 Niko rial Tino Diastolic (mm Hg) 2014-03-06 20:30:00 Mem orial Plessis Respitory Rate 2014-03-06 20:30:00 Memori al Plessis Diastolic (mm Hg) 2014-03-06 20:15:00 Mem orial Tino Systolic (mm Hg) 2014-03-06 20:15:00 Niko rial Tino Respitory Rate 2014-03-06 20:15:00 Memori al Tino Diastolic (mm Hg) 2014-03-06 20:02:00 Mem orial Plessis Systolic (mm Hg) 2014-03-06 20:02:00 Niko rosenthal Tino Respitory Rate 2014-03-06 20:02:00 John Apple Heart Rate 2014-03-06 17:15:00 [facility] [place] Heart Rate 2014-03-05 17:17:00 [facility] Plessis BMI Calculated 2014-03-05 16:24:00 John Apple Weight 2014-03-05 16:24:00 Emmy Tino Height 2014-03-05 16:24:00 180.34 cm [facility] Tino Procedures Procedure Date / Time Performed Performing Clinician [facility] e Arthroplasty of [facility] Plessis knee<sup>1</sup> Procedure<sup>2</sup> [facility] H ermann Encounters Start End Encounter Admission Attending Care Care Encounter Source Date/Time Date/Time Type Type Clinicians Facility Department ID 2016-09-11 2016-09-12 Outpatient Jacquelin [facility] [id number] 10:41:00 16:00:00 Eddie 2014-03-06 2014-03-06 Outpatient SG Lee ANTONIA [id number] 10:57:00 15:00:00 Jean Carlos Deras 00 Results Test Description Test Time Test Comments Results Result Comments Source POCT-GLUCOSE METER 2017-02-08 13:28:00 Test Item Value Reference Range Interpretation Comme nts POC-GLUCOSE METER (BEAKER) (test 270 mg/dL 70-110 H TESTED AT [facility] [address] code = 1538) [facility] 7703 0 POCT-GLUCOSE [id number] 08:58:00 Test Item Value Reference Range Interpretation Comments POC-GLUCOSE METER 147 mg/dL 70-110 H TESTED AT [facility] [address] (BEAKER) (test code = BERT[address] R [facility] 1538) [id number] CBC W/PLT COUNT & AUTO [id number] 08:53:00 Test Item Value Reference Range Interpretation Comments WHITE BLOOD CELL COUNT (BEAKER) 5.6 K/ L 3.5-10.5 (test code = 775) RED BLOOD CELL COUNT (BEAKER) 4.28 M/ L 4.63-6.08 L (test code = 761) HEMOGLOBIN (BEAKER) (test code = 11.7 GM/DL 13.7-17.5 L 410) HEMATOCRIT (BEAKER) (test code = 37.4 % 40.1-51.0 L 411) MEAN CORPUSCULAR VOLUME (BEAKER) 87.4 fL 79.0-92.2 (test code = 753) MEAN CORPUSCULAR HEMOGLOBIN 27.3 pg 25.7-32.2 (BEAKER) (test code = 751) MEAN CORPUSCULAR HEMOGLOBIN CONC 31.3 GM/DL 32.3-36.5 L (BEAKER) (test code = 752) RED CELL DISTRIBUTION WIDTH 16.2 % 11.6-14.4 H (BEAKER) (test code = 412) PLATELET COUNT (BEAKER) (test 100 K/CU MM 150-450 L code = 756) MEAN PLATELET VOLUME (BEAKER) 10.7 fL 9.4-12.4 (test code = 754) NUCLEATED RED BLOOD CELLS 0 /100 WBC 0-0 (BEAKER) (test code = 413) NEUTROPHILS RELATIVE PERCENT 50 % (BEAKER) (test code = 429) LYMPHOCYTES RELATIVE PERCENT 30 % (BEAKER) (test code = 430) MONOCYTES RELATIVE PERCENT 18 % (BEAKER) (test code = 431) EOSINOPHILS RELATIVE PERCENT 2 % (BEAKER) (test code = 432) BASOPHILS RELATIVE PERCENT 1 % (BEAKER) (test code = 437) NEUTROPHILS ABSOLUTE COUNT 2.77 K/ L 1.78-5.38 (BEAKER) (test code = 670) LYMPHOCYTES ABSOLUTE COUNT 1.66 K/ L 1.32-3.57 (BEAKER) (test code = 414) MONOCYTES ABSOLUTE COUNT (BEAKER) 1.02 K/ L 0.30-0.82 H (test code = 415) EOSINOPHILS ABSOLUTE COUNT 0.09 K/ L 0.04-0.54 (BEAKER) (test code = 416) BASOPHILS ABSOLUTE COUNT (BEAKER) 0.03 K/ L 0.01-0.08 (test code = 417) IMMATURE GRANULOCYTES-RELATIVE 0 % 0-1 PERCENT (BEAKER) (test code = 2801) [id number] 08:05:00 Test Item Value Reference Range Interpretation Comments MAGNESIUM (BEAKER) (test code = 1.5 mg/dL 1.6-2.6 L 627) BASIC METABOLIC [id number] 08:05:00 Test Item Value Reference Range Interpretation Comments SODIUM (BEAKER) 137 meq/L 136-145 (test code = 381) POTASSIUM (BEAKER) 3.3 meq/L 3.5-5.1 L (test code = 379) CHLORIDE (BEAKER) 98 meq/L 98-107 (test code = 382) CO2 (BEAKER) (test 27 meq/L 22-29 code = 355) BLOOD UREA NITROGEN 30 mg/dL 7-21 H (BEAKER) (test code = 354) CREATININE (BEAKER) 1.59 mg/dL 0.57-1.25 H (test code = 358) GLUCOSE RANDOM 116 mg/dL 70-105 H (BEAKER) (test code = 652) CALCIUM (BEAKER) 9.0 mg/dL 8.4-10.2 (test code = 697) EGFR (BEAKER) (test 43 mL/min/1.73 ESTIMA LUCIANO GFR IS code = 1092) sq m NOT ACCURATE CREATININE CLEARANCE IN PREDICTING GLOMERULAR FILTRATION RATE . ESTIMATED GFR I S NOT APPLICABLE FOR DIALYSIS PATIEN TS. POCT-GLUCOSE [id number] 21:57:00 Test Item Value Reference Range Interpretation Comments POC-GLUCOSE METER 219 mg/dL 70-110 H TESTED AT [facility] 67[address] ([facility]) (test code = [facility] Mandi [facility] 1538) [id number] POCT-GLUCOSE [id number] 17:24:00 Test Item Value Reference Range Interpretation Comments POC-GLUCOSE METER 247 mg/dL 70-110 H TESTED AT [place] [address] ([facility] (test code = [facility] 1538) [id number] CBC W/PLT COUNT & AUTO [id number] 13:56:00 Test Item Value Reference Range Interpretation Comments WHITE BLOOD CELL COUNT (BEAKER) 6.4 K/ L 3.5-10.5 (test code = 775) RED BLOOD CELL COUNT (BEAKER) 4.04 M/ L 4.63-6.08 L (test code = 761) HEMOGLOBIN (BEAKER) (test code = 10.9 GM/DL 13.7-17.5 L 410) HEMATOCRIT (BEAKER) (test code = 35.4 % 40.1-51.0 L 411) MEAN CORPUSCULAR VOLUME (BEAKER) 87.6 fL 79.0-92.2 (test code = 753) MEAN CORPUSCULAR HEMOGLOBIN 27.0 pg 25.7-32.2 (BEAKER) (test code = 751) MEAN CORPUSCULAR HEMOGLOBIN CONC 30.8 GM/DL 32.3-36.5 L (BEAKER) (test code = 752) RED CELL DISTRIBUTION WIDTH 16.1 % 11.6-14.4 H (BEAKER) (test code = 412) PLATELET COUNT (BEAKER) (test code 98 K/CU MM 150-450 L = 756) MEAN PLATELET VOLUME (BEAKER) 10.5 fL 9.4-12.4 (test code = 754) NUCLEATED RED BLOOD CELLS (BEAKER) 0 /100 WBC 0-0 (test code = 413) IMMATURE GRANULOCYTES-RELATIVE 0 % 0-1 PERCENT (BEAKER) (test code = 2801) (MANUAL DIFFERENTIAL)2017-02-07 13:56:00 Test Item Value Reference Range Interpretation Comments NEUTROPHILS - REL (DIFF) (BEAKER) 52 % (test code = 1359) LYMPHOCYTES - REL (DIFF) (BEAKER) 26 % (test code = 1360) MONOCYTES - REL (DIFF) (BEAKER) 14 % (test code = 1361) EOSINOPHILS - REL (DIFF) (BEAKER) 6 % (test code = 1362) BASOPHILS - REL (DIFF) (BEAKER) 0 % (test code = 1363) BANDS - REL (DIFF) (BEAKER) (test 1 % 0-10 code = 1348) ATYPICAL LYMPHOCYTE - REL (DIFF) 1 % 0-0 H (BEAKER) (test code = 260) NEUTROPHILS - ABS (DIFF) (BEAKER) 3.33 K/ L 1.80-8.00 (test code = 1365) LYMPHOCYTES - ABS (DIFF) (BEAKER) 1.66 K/ L 1.48-4.50 (test code = 1366) MONOCYTES - ABS (DIFF) (BEAKER) 0.90 K/ L 0.00-1.30 (test code = 1367) EOSINOPHILS - ABS (DIFF) (BEAKER) 0.38 K/ L 0.00-0.50 (test code = 1368) BASOPHILS - ABS (DIFF) (BEAKER) 0.00 K/ L 0.00-0.20 (test code = 1369) BANDS-ABS (DIFF) (BEAKER) (test 0.1 K/ L 0.0-0.8 code = 1349) ATYPICAL LYMPHOCYTES - ABS (DIFF) 0.06 K/ L 0.00-0.00 H (BEAKER) (test code = 263) TOTAL COUNTED (BEAKER) (test code = 100 1351) BANDS + SEGMENTED NEUTROPHILS 3.39 (BEAKER) (test code = 1352) WBC MORPHOLOGY (BEAKER) (test code Normal = 487) PLT MORPHOLOGY (BEAKER) (test code Normal = 486) RBC MORPHOLOGY (BEAKER) (test code Normal = 762) POCT-GLUCOSE [id number] 13:22:00 Test Item Value Reference Range Interpretation Comments POC-GLUCOSE METER 226 mg/dL 70-110 H TESTED AT [facility] [address] (BEAKER) (test code = SHRAVAN Raymond [facility] 1538) [id number] POCT-GLUCOSE [id number] 07:59:00 Test Item Value Reference Range Interpretation Comments POC-GLUCOSE METER 216 mg/dL 70-110 H TESTED AT [facility] [address] ([facility]) (test code = SHRAVAN Raymond [facility] 1538) [id number] 05:18:00 Test Item Value Reference Range Interpretation Comments MAGNESIUM (BEAKER) (test code = 1.7 mg/dL 1.6-2.6 627) BASIC METABOLIC [id number] 05:18:00 Test Item Value Reference Range Interpretation Comments SODIUM (BEAKER) 136 meq/L 136-145 (test code = 381) POTASSIUM (BEAKER) 3.4 meq/L 3.5-5.1 L (test code = 379) CHLORIDE (BEAKER) 101 meq/L 98-107 (test code = 382) CO2 (BEAKER) (test 26 meq/L 22-29 code = 355) BLOOD UREA NITROGEN 25 mg/dL 7-21 H (BEAKER) (test code = 354) CREATININE (BEAKER) 1.50 mg/dL 0.57-1.25 H (test code = 358) GLUCOSE RANDOM 216 mg/dL 70-105 H (BEAKER) (test code = 652) CALCIUM (BEAKER) 8.5 mg/dL 8.4-10.2 (test code = 697) EGFR (BEAKER) (test 46 mL/min/1.73 ESTIMA LUCIANO GFR IS code = 1092) sq m NOT ACCURATE CREATININE CLEARANCE IN PREDICTING GLOMERULAR FILTRATION RATE . ESTIMATED GFR I S NOT APPLICABLE FOR DIALYSIS PATIEN TS. POCT-GLUCOSE [id number] 20:58:00 Test Item Value Reference Range Interpretation Comments POC-GLUCOSE METER 260 mg/dL 70-110 H TESTED AT [place] [address] ([facility] (test code = SHRAVAN Raymond [place] 1538) [id number] POCT-GLUCOSE [id number] 17:32:00 Test Item Value Reference Range Interpretation Comments POC-GLUCOSE METER 237 mg/dL 70-110 H TESTED AT [place] [address] ([facility] (test code = [facility] Mand[place] 1538) [id number] POCT-GLUCOSE [id number] 16:21:00 Test Item Value Reference Range Interpretation Comments POC-GLUCOSE METER 223 mg/dL 70-110 H TESTED AT [place] [address] ([facility] (test code = [facility] Mand[place] 1538) [address] CBC W/PLT COUNT & AUTO [id number] 14:22:00 Test Item Value Reference Range Interpretation Comments WHITE BLOOD CELL COUNT (BEAKER) 6.5 K/ L 3.5-10.5 (test code = 775) RED BLOOD CELL COUNT (BEAKER) 4.17 M/ L 4.63-6.08 L (test code = 761) HEMOGLOBIN (BEAKER) (test code = 11.3 GM/DL 13.7-17.5 L 410) HEMATOCRIT (BEAKER) (test code = 36.8 % 40.1-51.0 L 411) MEAN CORPUSCULAR VOLUME (BEAKER) 88.2 fL 79.0-92.2 (test code = 753) MEAN CORPUSCULAR HEMOGLOBIN 27.1 pg 25.7-32.2 (BEAKER) (test code = 751) MEAN CORPUSCULAR HEMOGLOBIN CONC 30.7 GM/DL 32.3-36.5 L (BEAKER) (test code = 752) RED CELL DISTRIBUTION WIDTH 16.1 % 11.6-14.4 H (BEAKER) (test code = 412) PLATELET COUNT (BEAKER) (test 116 K/CU MM 150-450 L code = 756) MEAN PLATELET VOLUME (BEAKER) 10.7 fL 9.4-12.4 (test code = 754) NUCLEATED RED BLOOD CELLS 0 /100 WBC 0-0 (BEAKER) (test code = 413) NEUTROPHILS RELATIVE PERCENT 48 % (BEAKER) (test code = 429) LYMPHOCYTES RELATIVE PERCENT 30 % (BEAKER) (test code = 430) MONOCYTES RELATIVE PERCENT 20 % (BEAKER) (test code = 431) EOSINOPHILS RELATIVE PERCENT 1 % (BEAKER) (test code = 432) BASOPHILS RELATIVE PERCENT 0 % (BEAKER) (test code = 437) NEUTROPHILS ABSOLUTE COUNT 3.09 K/ L 1.78-5.38 (BEAKER) (test code = 670) LYMPHOCYTES ABSOLUTE COUNT 1.95 K/ L 1.32-3.57 (BEAKER) (test code = 414) MONOCYTES ABSOLUTE COUNT (BEAKER) 1.32 K/ L 0.30-0.82 H (test code = 415) EOSINOPHILS ABSOLUTE COUNT 0.07 K/ L 0.04-0.54 (BEAKER) (test code = 416) BASOPHILS ABSOLUTE COUNT (BEAKER) 0.02 K/ L 0.01-0.08 (test code = 417) IMMATURE GRANULOCYTES-RELATIVE 0 % 0-1 PERCENT (BEAKER) (test code = 2801) (MANUAL DIFFERENTIAL)2017-02-06 14:22:00 Test Item Value Reference Range Interpretation Comments TOTAL COUNTED (BEAKER) (test code = 1351) WBC MORPHOLOGY (BEAKER) (test code = Normal 487) PLT MORPHOLOGY (BEAKER) (test code = Normal 486) RBC MORPHOLOGY (BEAKER) (test code = Normal 762) POCT-GLUCOSE [id number] 11:52:00 Test Item Value Reference Range Interpretation Comments POC-GLUCOSE METER 143 mg/dL 70-110 H TESTED AT [place] [address] ([facility]) (test code = [facility] 1538) [address] POCT-GLUCOSE [id number] 08:04:00 Test Item Value Reference Range Interpretation Comments POC-GLUCOSE METER 86 mg/dL 70-110 TESTED AT [facility] [address] ([facility]) (test code = [facility] Mandi [facility] [id number]) [id number] 06:07:00 Test Item Value Reference Range Interpretation Comments MAGNESIUM (BEAKER) 1.6 mg/dL 1.6-2.6 Specimen slightly (test code = 627) hemolyzed BASIC METABOLIC [id number] 06:07:00 Test Item Value Reference Range Interpretation Comments SODIUM (BEAKER) 135 meq/L 136-145 L (test code = 381) POTASSIUM (BEAKER) 3.7 meq/L 3.5-5.1 Specimen slightly (test code = 379) hemolyzed CHLORIDE (BEAKER) 104 meq/L 98-107 (test code = 382) CO2 (BEAKER) (test 22 meq/L 22-29 code = 355) BLOOD UREA NITROGEN 27 mg/dL 7-21 H (BEAKER) (test code = 354) CREATININE (BEAKER) 1.32 mg/dL 0.57-1.25 H Specimen slightly (test code = 358) hemolyzed GLUCOSE RANDOM 103 mg/dL 70-105 (BEAKER) (test code = 652) CALCIUM (BEAKER) 8.4 mg/dL 8.4-10.2 (test code = 697) EGFR (BEAKER) (test 53 mL/min/1.73 ESTIMA LUCIANO GFR IS code = 1092) sq m NOT ACCURATE CREATININE CLEARANCE IN PREDICTING GLOMERULAR FILTRATION RATE . ESTIMATED GFR I S NOT APPLICABLE FOR DIALYSIS PATIEN TS. POCT-GLUCOSE [id number] 20:42:00 Test Item Value Reference Range Interpretation Comments POC-GLUCOSE METER 338 mg/dL 70-110 H TESTED AT [facility] 6720 ([facility] (test code = SHRAVAN Raymond [facility] 1538) [id number] POCT-GLUCOSE [id number] 17:41:00 Test Item Value Reference Range Interpretation Comments POC-GLUCOSE METER 303 mg/dL 70-110 H TESTED AT [facility] 6720 ([facility] (test code = SHRAVAN Raymond [facility] 1538) [address] RAD, CHEST, 1 VIEW, NON [id number] 14:44:00Reason for exam:->shortness of breath s/p RHCShould this be performed at the bedside?->YesFINAL REPORT CLINICAL HISTORY: shortness of breath s/p RHC TECHNIQUE: 1 viewof the chest. COMPARISON: 01/31/2017 IMPRESSION: Trace bilateral pleural effusions are again seen with left basilar atelectasis. The cardiomediastinal silhouette is magnified by technique with a pacemaker. Signed: Barbara Pizarro MDReport Verified Date/Time: 02/05/2017 14:44:20 Reading Location: [facility] [id number] Consult Reading Room CBC W/PLT COUNT & AUTO [id number] 14:37:00 Test Item Value Reference Range Interpretation Comments WHITE BLOOD CELL COUNT (BEAKER) 7.1 K/ L 3.5-10.5 (test code = 775) RED BLOOD CELL COUNT (BEAKER) 4.34 M/ L 4.63-6.08 L (test code = 761) HEMOGLOBIN (BEAKER) (test code = 11.8 GM/DL 13.7-17.5 L 410) HEMATOCRIT (BEAKER) (test code = 38.1 % 40.1-51.0 L 411) MEAN CORPUSCULAR VOLUME (BEAKER) 87.8 fL 79.0-92.2 (test code = 753) MEAN CORPUSCULAR HEMOGLOBIN 27.2 pg 25.7-32.2 (BEAKER) (test code = 751) MEAN CORPUSCULAR HEMOGLOBIN CONC 31.0 GM/DL 32.3-36.5 L (BEAKER) (test code = 752) RED CELL DISTRIBUTION WIDTH 16.1 % 11.6-14.4 H (BEAKER) (test code = 412) PLATELET COUNT (BEAKER) (test 112 K/CU MM 150-450 L code = 756) MEAN PLATELET VOLUME (BEAKER) 10.6 fL 9.4-12.4 (test code = 754) NUCLEATED RED BLOOD CELLS 0 /100 WBC 0-0 (BEAKER) (test code = 413) NEUTROPHILS RELATIVE PERCENT 55 % (BEAKER) (test code = 429) LYMPHOCYTES RELATIVE PERCENT 20 % (BEAKER) (test code = 430) MONOCYTES RELATIVE PERCENT 23 % (BEAKER) (test code = 431) EOSINOPHILS RELATIVE PERCENT 1 % (BEAKER) (test code = 432) BASOPHILS RELATIVE PERCENT 0 % (BEAKER) (test code = 437) NEUTROPHILS ABSOLUTE COUNT 3.91 K/ L 1.78-5.38 (BEAKER) (test code = 670) LYMPHOCYTES ABSOLUTE COUNT 1.43 K/ L 1.32-3.57 (BEAKER) (test code = 414) MONOCYTES ABSOLUTE COUNT (BEAKER) 1.67 K/ L 0.30-0.82 H (test code = 415) EOSINOPHILS ABSOLUTE COUNT 0.08 K/ L 0.04-0.54 (BEAKER) (test code = 416) BASOPHILS ABSOLUTE COUNT (BEAKER) 0.03 K/ L 0.01-0.08 (test code = 417) IMMATURE GRANULOCYTES-RELATIVE 0 % 0-1 PERCENT (BEAKER) (test code = 2801) (MANUAL DIFFERENTIAL)2017-02-05 14:37:00 Test Item Value Reference Range Interpretation Comments TOTAL COUNTED (BEAKER) (test code = 1351) WBC MORPHOLOGY (BEAKER) (test code = Normal 487) PLT MORPHOLOGY (BEAKER) (test code = Normal 486) RBC MORPHOLOGY (BEAKER) (test code = Normal 762) POCT-GLUCOSE [id number] 12:08:00 Test Item Value Reference Range Interpretation Comments POC-GLUCOSE METER 197 mg/dL 70-110 H TESTED AT [facility] 6720 (BEAKER) (test code = SHRAVAN [place] 1538) [address] POCT-GLUCOSE [id number] 07:55:00 Test Item Value Reference Range Interpretation Comments POC-GLUCOSE METER 149 mg/dL 70-110 H TESTED AT [facility] 6720 (BEAKER) (test code = SHRAVAN [place] 1538) [address] [id number] 05:21:00 Test Item Value Reference Range Interpretation Comments MAGNESIUM (BEAKER) (test code = 1.4 mg/dL 1.6-2.6 L 627) BASIC METABOLIC [id number] 05:21:00 Test Item Value Reference Range Interpretation Comments SODIUM (BEAKER) 139 meq/L 136-145 (test code = 381) POTASSIUM (BEAKER) 3.7 meq/L 3.5-5.1 (test code = 379) CHLORIDE (BEAKER) 107 meq/L 98-107 (test code = 382) CO2 (BEAKER) (test 23 meq/L code = 355) BLOOD UREA NITROGEN 24 mg/dL 7-21 H (BEAKER) (test code = 354) CREATININE (BEAKER) 1.31 mg/dL 0.57-1.25 H (test code = 358) GLUCOSE RANDOM 155 mg/dL 70-105 H (BEAKER) (test code = 652) CALCIUM (BEAKER) 8.5 mg/dL 8.4-10.2 (test code = 697) EGFR (BEAKER) (test 54 mL/min/1.73 ESTIMA LUCIANO GFR IS code = 1092) sq m NOT ACCURATE CREATININE CLEARANCE IN PREDICTING GLOMERULAR FILTRATION RATE . ESTIMATED GFR I S NOT APPLICABLE FOR DIALYSIS PATIEN TS. POCT-GLUCOSE [id number] 21:03:00 Test Item Value Reference Range Interpretation Comments POC-GLUCOSE METER 296 mg/dL 70-110 H TESTED AT [place] [address] ([facility] (test code = [facility] 1538) [address] POCT-GLUCOSE [id number] 17:18:00 Test Item Value Reference Range Interpretation Comments POC-GLUCOSE METER 275 mg/dL 70-110 H TESTED AT [place] [address] ([facility] (test code = [facility] 1538) [address] CBC W/PLT COUNT & AUTO [id number] 15:04:00 Test Item Value Reference Range Interpretation Comments WHITE BLOOD CELL COUNT (BEAKER) 7.2 K/ L 3.5-10.5 (test code = 775) RED BLOOD CELL COUNT (BEAKER) 4.24 M/ L 4.63-6.08 L (test code = 761) HEMOGLOBIN (BEAKER) (test code = 11.5 GM/DL 13.7-17.5 L 410) HEMATOCRIT (BEAKER) (test code = 37.6 % 40.1-51.0 L 411) MEAN CORPUSCULAR VOLUME (BEAKER) 88.7 fL 79.0-92.2 (test code = 753) MEAN CORPUSCULAR HEMOGLOBIN 27.1 pg 25.7-32.2 (BEAKER) (test code = 751) MEAN CORPUSCULAR HEMOGLOBIN CONC 30.6 GM/DL 32.3-36.5 L (BEAKER) (test code = 752) RED CELL DISTRIBUTION WIDTH 16.3 % 11.6-14.4 H (BEAKER) (test code = 412) PLATELET COUNT (BEAKER) (test 116 K/CU MM 150-450 L code = 756) MEAN PLATELET VOLUME (BEAKER) 10.6 fL 9.4-12.4 (test code = 754) NUCLEATED RED BLOOD CELLS 0 /100 WBC 0-0 (BEAKER) (test code = 413) NEUTROPHILS RELATIVE PERCENT 51 % (BEAKER) (test code = 429) LYMPHOCYTES RELATIVE PERCENT 22 % (BEAKER) (test code = 430) MONOCYTES RELATIVE PERCENT 24 % (BEAKER) (test code = 431) EOSINOPHILS RELATIVE PERCENT 1 % (BEAKER) (test code = 432) BASOPHILS RELATIVE PERCENT 0 % (BEAKER) (test code = 437) NEUTROPHILS ABSOLUTE COUNT 3.71 K/ L 1.78-5.38 (BEAKER) (test code = 670) LYMPHOCYTES ABSOLUTE COUNT 1.62 K/ L 1.32-3.57 (BEAKER) (test code = 414) MONOCYTES ABSOLUTE COUNT (BEAKER) 1.74 K/ L 0.30-0.82 H (test code = 415) EOSINOPHILS ABSOLUTE COUNT 0.08 K/ L 0.04-0.54 (BEAKER) (test code = 416) BASOPHILS ABSOLUTE COUNT (BEAKER) 0.03 K/ L 0.01-0.08 (test code = 417) IMMATURE GRANULOCYTES-RELATIVE 1 % 0-1 PERCENT (BEAKER) (test code = 2801) (MANUAL DIFFERENTIAL)2017-02-04 15:04:00 Test Item Value Reference Range Interpretation Comments TOTAL COUNTED (BEAKER) (test code = 1351) POCT-GLUCOSE [id number] 12:17:00 Test Item Value Reference Range Interpretation Comments POC-GLUCOSE METER 208 mg/dL 70-110 H TESTED AT [facility] 67 (BEAKER) (test code = [place] 1538) [address] POCT-GLUCOSE [id number] 08:57:00 Test Item Value Reference Range Interpretation Comments POC-GLUCOSE METER 230 mg/dL 70-110 H TESTED AT [facility] 67 (BEAKER) (test code = SHRAVAN Raymond [facility] 1538) [address] [id number] 05:56:00 Test Item Value Reference Range Interpretation Comments MAGNESIUM (BEAKER) (test code = 1.6 mg/dL 1.6-2.6 627) BASIC METABOLIC [id number] 05:56:00 Test Item Value Reference Range Interpretation Comments SODIUM (BEAKER) 137 meq/L 136-145 (test code = 381) POTASSIUM (BEAKER) 4.2 meq/L 3.5-5.1 (test code = 379) CHLORIDE (BEAKER) 108 meq/L 98-107 H (test code = 382) CO2 (BEAKER) (test 19 meq/L 22-29 L code = 355) BLOOD UREA NITROGEN 28 mg/dL 7-21 H (BEAKER) (test code = 354) CREATININE (BEAKER) 1.35 mg/dL 0.57-1.25 H (test code = 358) GLUCOSE RANDOM 271 mg/dL 70-105 H (BEAKER) (test code = 652) CALCIUM (BEAKER) 8.4 mg/dL 8.4-10.2 (test code = 697) EGFR (BEAKER) (test 52 mL/min/1.73 ESTIMA LUCIANO GFR IS code = 1092) sq m NOT ACCURATE CREATININE CLEARANCE IN PREDICTING GLOMERULAR FILTRATION RATE . ESTIMATED GFR I S NOT APPLICABLE FOR DIALYSIS PATIEN TS. POCT-GLUCOSE [id number] 21:20:00 Test Item Value Reference Range Interpretation Comments POC-GLUCOSE METER 329 mg/dL 70-110 H Notified R Warren WATTS/TESTED (BEAKER) (test code = AT [facility] [address] [place] [address] [facility] [address] POCT-GLUCOSE [id number] 18:14:00 Test Item Value Reference Range Interpretation Comments POC-GLUCOSE METER 299 mg/dL 70-110 H TESTED AT [facility] 67 ([facility] (test code = SHRAVAN Raymond [place] [address]) [address] CBC W/PLT COUNT & AUTO [id number] 15:17:00 Test Item Value Reference Range Interpretation Comments WHITE BLOOD CELL COUNT (BEAKER) 8.0 K/ L 3.5-10.5 (test code = 775) RED BLOOD CELL COUNT (BEAKER) 4.25 M/ L 4.63-6.08 L (test code = 761) HEMOGLOBIN (BEAKER) (test code = 11.7 GM/DL 13.7-17.5 L 410) HEMATOCRIT (BEAKER) (test code = 37.9 % 40.1-51.0 L 411) MEAN CORPUSCULAR VOLUME (BEAKER) 89.2 fL 79.0-92.2 (test code = 753) MEAN CORPUSCULAR HEMOGLOBIN 27.5 pg 25.7-32.2 (BEAKER) (test code = 751) MEAN CORPUSCULAR HEMOGLOBIN CONC 30.9 GM/DL 32.3-36.5 L (BEAKER) (test code = 752) RED CELL DISTRIBUTION WIDTH 16.1 % 11.6-14.4 H (BEAKER) (test code = 412) PLATELET COUNT (BEAKER) (test 139 K/CU MM 150-450 L code = 756) MEAN PLATELET VOLUME (BEAKER) 10.4 fL 9.4-12.4 (test code = 754) NUCLEATED RED BLOOD CELLS 0 /100 WBC 0-0 (BEAKER) (test code = 413) NEUTROPHILS RELATIVE PERCENT 52 % (BEAKER) (test code = 429) LYMPHOCYTES RELATIVE PERCENT 24 % (BEAKER) (test code = 430) MONOCYTES RELATIVE PERCENT 22 % (BEAKER) (test code = 431) EOSINOPHILS RELATIVE PERCENT 2 % (BEAKER) (test code = 432) BASOPHILS RELATIVE PERCENT 0 % (BEAKER) (test code = 437) NEUTROPHILS ABSOLUTE COUNT 4.11 K/ L 1.78-5.38 (BEAKER) (test code = 670) LYMPHOCYTES ABSOLUTE COUNT 1.91 K/ L 1.32-3.57 (BEAKER) (test code = 414) MONOCYTES ABSOLUTE COUNT (BEAKER) 1.75 K/ L 0.30-0.82 H (test code = 415) EOSINOPHILS ABSOLUTE COUNT 0.14 K/ L 0.04-0.54 (BEAKER) (test code = 416) BASOPHILS ABSOLUTE COUNT (BEAKER) 0.03 K/ L 0.01-0.08 (test code = 417) IMMATURE GRANULOCYTES-RELATIVE 0 % 0-1 PERCENT (BEAKER) (test code = 2801) (MANUAL DIFFERENTIAL)2017-02-03 15:17:00 Test Item Value Reference Range Interpretation Comments TOTAL COUNTED (BEAKER) (test code = 1351) WBC MORPHOLOGY (BEAKER) (test code = Normal 487) PLT MORPHOLOGY (BEAKER) (test code = Normal 486) RBC MORPHOLOGY (BEAKER) (test code = Normal 762) POCT-GLUCOSE [id number] 12:54:00 Test Item Value Reference Range Interpretation Comments POC-GLUCOSE METER 173 mg/dL 70-110 H TESTED AT [facility] 6720 (BEAKER) (test code = SHRAVAN [place] 1538) [address] URINALYSIS W/ REFLEX URINE [id number] 12:06:00 Test Item Value Reference Range Interpretation Comments COLOR (BEAKER) (test code = 470) Yellow CLARITY (BEAKER) (test code = 469) Clear SPECIFIC GRAVITY UA (BEAKER) (test 1.016 1.001-1.035 code = 468) PH UA (BEAKER) (test code = 467) 5.0 5.0-8.0 PROTEIN UA (BEAKER) (test code = 20 mg/dL Negative A 464) GLUCOSE UA (BEAKER) (test code = 50 mg/dL Negative A 365) KETONES UA (BEAKER) (test code = Negative Negative 371) BILIRUBIN UA (BEAKER) (test code = Negative Negative 462) BLOOD UA (BEAKER) (test code = Trace Negative A 461) NITRITE UA (BEAKER) (test code = Negative Negative 465) LEUKOCYTE ESTERASE UA (BEAKER) Negative Negative (test code = 466) UROBILINOGEN UA (BEAKER) (test 0.2 mg/dL 0.2-1.0 code = 463) RBC UA (BEAKER) (test code = 519) 3 /HPF WBC UA (BEAKER) (test code = 520) 4 /HPF BACTERIA (BEAKER) (test code = Occasional 517) MUCUS (BEAKER) (test code = 1574) Occasional SQUAMOUS EPITHELIAL (BEAKER) (test 1 /HPF code = 516) AMORPHOUS CRYSTALS (BEAKER) (test Occasional code = 1584) SOURCE(BEAKER) (test code = 2795) CREATININE, RANDOM [id number] 10:52:00 Test Item Value Reference Range Interpretation Comments CREATININE URINE (BEAKER) (test 127.3 mg/dL code = 375) Reference Range: No NormalsPROTEIN, RANDOM [id number] 10:52:00 Test Item Value Reference Range Interpretation Comments PROTEIN, URINE (BEAKER) (test code = 19 mg/dL 0-14 H 1569) POCT-GLUCOSE [id number] 07:55:00 Test Item Value Reference Range Interpretation Comments POC-GLUCOSE METER 88 mg/dL 70-110 TESTED AT [facility] 6720 (BEAKER) (test code = [place] [address] 1538) [id number] 05:22:00 Test Item Value Reference Range Interpretation Comments MAGNESIUM (BEAKER) (test code = 1.8 mg/dL 1.6-2.6 627) BASIC METABOLIC [id number] 05:22:00 Test Item Value Reference Range Interpretation Comments SODIUM (BEAKER) 138 meq/L 136-145 (test code = 381) POTASSIUM (BEAKER) 4.0 meq/L 3.5-5.1 (test code = 379) CHLORIDE (BEAKER) 110 meq/L 98-107 H (test code = 382) CO2 (BEAKER) (test 21 meq/L 22-29 L code = 355) BLOOD UREA NITROGEN 31 mg/dL 7-21 H (BEAKER) (test code = 354) CREATININE (BEAKER) 1.27 mg/dL 0.57-1.25 H (test code = 358) GLUCOSE RANDOM 130 mg/dL 70-105 H (BEAKER) (test code = 652) CALCIUM (BEAKER) 8.4 mg/dL 8.4-10.2 (test code = 697) EGFR (BEAKER) (test 56 mL/min/1.73 ESTIMA LUCIANO GFR IS code = 1092) sq m NOT ACCURATE CREATININE CLEARANCE IN PREDICTING GLOMERULAR FILTRATION RATE . ESTIMATED GFR I S NOT APPLICABLE FOR DIALYSIS PATIEN TS. B-TYPE NATRIURETIC FACTOR (BNP)2017-02-03 05:17:00 Test Item Value Reference Range Interpretation Comments B-TYPE NATRIURETIC PEPTIDE (BEAKER) 315 pg/mL 0-100 H (test code = 700) POCT-GLUCOSE [id number] 21:36:00 Test Item Value Reference Range Interpretation Comments POC-GLUCOSE METER 230 mg/dL 70-110 H TESTED AT [place] [address] ([facility] (test code = SHRAVAN Raymond [facility] 1538) [address] POCT-GLUCOSE [id number] 17:50:00 Test Item Value Reference Range Interpretation Comments POC-GLUCOSE METER 185 mg/dL 70-110 H TESTED AT [facility] 6720 ([facility] (test code = SHRAVAN [place] 1538) [address] POCT-GLUCOSE [id number] 12:49:00 Test Item Value Reference Range Interpretation Comments POC-GLUCOSE METER 168 mg/dL 70-110 H TESTED AT [facility] 6720 ([facility] (test code = SHRAVAN Raymond [place] 1538) [address] CT, CHEST, WITHOUT [id number] 11:27:00FINAL REPORT Chest CT without contrast Reason [...] MDReport Verified Date/Time: 02/02/2017 11:27:58 Reading Location: [address] Consult Reading Room POCT-GLUCOSE [id number] 08:24:00 Test Item Value Reference Range Interpretation Comments POC-GLUCOSE METER 84 mg/dL 70-110 TESTED AT [facility] 6720 ([facility] (test code = SHRAVAN Raymond [facility] [address] 1538) [id number] 07:42:00 Test Item Value Reference Range Interpretation Comments MAGNESIUM (BEAKER) (test code = 1.8 mg/dL 1.6-2.6 627) BASIC METABOLIC [id number] 07:42:00 Test Item Value Reference Range Interpretation Comments SODIUM (BEAKER) 137 meq/L 136-145 (test code = 381) POTASSIUM (BEAKER) 3.8 meq/L 3.5-5.1 (test code = 379) CHLORIDE (BEAKER) 108 meq/L 98-107 H (test code = 382) CO2 (BEAKER) (test 20 meq/L 22-29 L code = 355) BLOOD UREA NITROGEN 35 mg/dL 7-21 H (BEAKER) (test code = 354) CREATININE (BEAKER) 1.30 mg/dL 0.57-1.25 H (test code = 358) GLUCOSE RANDOM 102 mg/dL 70-105 (BEAKER) (test code = 652) CALCIUM (BEAKER) 8.4 mg/dL 8.4-10.2 (test code = 697) EGFR (BEAKER) (test 54 mL/min/1.73 ESTIMA LUCIANO GFR IS code = 1092) sq m NOT ACCURATE CREATININE CLEARANCE IN PREDICTING GLOMERULAR FILTRATION RATE . ESTIMATED GFR I S NOT APPLICABLE FOR DIALYSIS PATIEN TS. CBC W/PLT COUNT & AUTO [id number] 07:40:00 Test Item Value Reference Range Interpretation Comments WHITE BLOOD CELL COUNT (BEAKER) 9.3 K/ L 3.5-10.5 (test code = 775) RED BLOOD CELL COUNT (BEAKER) 4.32 M/ L 4.63-6.08 L (test code = 761) HEMOGLOBIN (BEAKER) (test code = 11.9 GM/DL 13.7-17.5 L 410) HEMATOCRIT (BEAKER) (test code = 38.3 % 40.1-51.0 L 411) MEAN CORPUSCULAR VOLUME (BEAKER) 88.7 fL 79.0-92.2 (test code = 753) MEAN CORPUSCULAR HEMOGLOBIN 27.5 pg 25.7-32.2 (BEAKER) (test code = 751) MEAN CORPUSCULAR HEMOGLOBIN CONC 31.1 GM/DL 32.3-36.5 L (BEAKER) (test code = 752) RED CELL DISTRIBUTION WIDTH 16.4 % 11.6-14.4 H (BEAKER) (test code = 412) PLATELET COUNT (BEAKER) (test 150 K/CU MM 150-450 code = 756) MEAN PLATELET VOLUME (BEAKER) 10.3 fL 9.4-12.4 (test code = 754) NUCLEATED RED BLOOD CELLS 0 /100 WBC 0-0 (BEAKER) (test code = 413) NEUTROPHILS RELATIVE PERCENT 58 % (BEAKER) (test code = 429) LYMPHOCYTES RELATIVE PERCENT 20 % (BEAKER) (test code = 430) MONOCYTES RELATIVE PERCENT 20 % (BEAKER) (test code = 431) EOSINOPHILS RELATIVE PERCENT 2 % (BEAKER) (test code = 432) BASOPHILS RELATIVE PERCENT 0 % (BEAKER) (test code = 437) NEUTROPHILS ABSOLUTE COUNT 5.35 K/ L 1.78-5.38 (BEAKER) (test code = 670) LYMPHOCYTES ABSOLUTE COUNT 1.84 K/ L 1.32-3.57 (BEAKER) (test code = 414) MONOCYTES ABSOLUTE COUNT (BEAKER) 1.83 K/ L 0.30-0.82 H (test code = 415) EOSINOPHILS ABSOLUTE COUNT 0.16 K/ L 0.04-0.54 (BEAKER) (test code = 416) BASOPHILS ABSOLUTE COUNT (BEAKER) 0.03 K/ L 0.01-0.08 (test code = 417) IMMATURE GRANULOCYTES-RELATIVE 0 % 0-1 PERCENT (BEAKER) (test code = 2801) POCT-GLUCOSE [id number] 21:29:00 Test Item Value Reference Range Interpretation Comments POC-GLUCOSE METER 273 mg/dL 70-110 H TESTED AT [place] [address] ([facility] (test code = [facility] 1538) [address] POCT-GLUCOSE [id number] 19:21:00 Test Item Value Reference Range Interpretation Comments POC-GLUCOSE METER 286 mg/dL 70-110 H TESTED AT [place] [address] ([facility] (test code = [facility] 1538) [address] POCT-GLUCOSE [id number] 17:33:00 Test Item Value Reference Range Interpretation Comments POC-GLUCOSE METER 263 mg/dL 70-110 H TESTED AT [place] [address] ([facility] (test code = [facility] 1538) [address] POCT-GLUCOSE [id number] 12:25:00 Test Item Value Reference Range Interpretation Comments POC-GLUCOSE METER 196 mg/dL 70-110 H TESTED AT [place] [address] ([facility] (test code = [facility] 1538) [address] CBC W/PLT COUNT & AUTO [id number] 10:54:00 Test Item Value Reference Range Interpretation Comments WHITE BLOOD CELL COUNT (BEAKER) 9.0 K/ L 3.5-10.5 (test code = 775) RED BLOOD CELL COUNT (BEAKER) 4.43 M/ L 4.63-6.08 L (test code = 761) HEMOGLOBIN (BEAKER) (test code = 12.2 GM/DL 13.7-17.5 L 410) HEMATOCRIT (BEAKER) (test code = 39.3 % 40.1-51.0 L 411) MEAN CORPUSCULAR VOLUME (BEAKER) 88.7 fL 79.0-92.2 (test code = 753) MEAN CORPUSCULAR HEMOGLOBIN 27.5 pg 25.7-32.2 (BEAKER) (test code = 751) MEAN CORPUSCULAR HEMOGLOBIN CONC 31.0 GM/DL 32.3-36.5 L (BEAKER) (test code = 752) RED CELL DISTRIBUTION WIDTH 16.4 % 11.6-14.4 H (BEAKER) (test code = 412) PLATELET COUNT (BEAKER) (test 157 K/CU MM 150-450 code = 756) MEAN PLATELET VOLUME (BEAKER) 11.1 fL 9.4-12.4 (test code = 754) NUCLEATED RED BLOOD CELLS 0 /100 WBC 0-0 (BEAKER) (test code = 413) NEUTROPHILS RELATIVE PERCENT 55 % (BEAKER) (test code = 429) LYMPHOCYTES RELATIVE PERCENT 24 % (BEAKER) (test code = 430) MONOCYTES RELATIVE PERCENT 19 % (BEAKER) (test code = 431) EOSINOPHILS RELATIVE PERCENT 2 % (BEAKER) (test code = 432) BASOPHILS RELATIVE PERCENT 0 % (BEAKER) (test code = 437) NEUTROPHILS ABSOLUTE COUNT 4.95 K/ L 1.78-5.38 (BEAKER) (test code = 670) LYMPHOCYTES ABSOLUTE COUNT 2.13 K/ L 1.32-3.57 (BEAKER) (test code = 414) MONOCYTES ABSOLUTE COUNT (BEAKER) 1.71 K/ L 0.30-0.82 H (test code = 415) EOSINOPHILS ABSOLUTE COUNT 0.17 K/ L 0.04-0.54 (BEAKER) (test code = 416) BASOPHILS ABSOLUTE COUNT (BEAKER) 0.02 K/ L 0.01-0.08 (test code = 417) IMMATURE GRANULOCYTES-RELATIVE 0 % 0-1 PERCENT (BEAKER) (test code = 2801) (MANUAL DIFFERENTIAL)2017-02-01 10:54:00 Test Item Value Reference Range Interpretation Comments TOTAL COUNTED (BEAKER) (test code = 1351) WBC MORPHOLOGY (BEAKER) (test code = Normal 487) PLT MORPHOLOGY (BEAKER) (test code = Normal 486) RBC MORPHOLOGY (BEAKER) (test code = Normal 762) POCT-GLUCOSE [id number] 08:17:00 Test Item Value Reference Range Interpretation Comments POC-GLUCOSE METER 176 mg/dL 70-110 H TESTED AT [facility] 6720 (BEAKER) (test code = [place]) [address] [id number] 06:41:00 Test Item Value Reference Range Interpretation Comments MAGNESIUM (BEAKER) (test code = 1.7 mg/dL 1.6-2.6 627) BASIC METABOLIC [id number] 06:41:00 Test Item Value Reference Range Interpretation Comments SODIUM (BEAKER) 136 meq/L 136-145 (test code = 381) POTASSIUM (BEAKER) 3.6 meq/L 3.5-5.1 (test code = 379) CHLORIDE (BEAKER) 107 meq/L 98-107 (test code = 382) CO2 (BEAKER) (test 21 meq/L 22-29 L code = 355) BLOOD UREA NITROGEN 37 mg/dL 7-21 H (BEAKER) (test code = 354) CREATININE (BEAKER) 1.43 mg/dL 0.57-1.25 H (test code = 358) GLUCOSE RANDOM 180 mg/dL 70-105 H (BEAKER) (test code = 652) CALCIUM (BEAKER) 8.4 mg/dL 8.4-10.2 (test code = 697) EGFR (BEAKER) (test 48 mL/min/1.73 ESTIMA LUCIANO GFR IS code = 1092) sq m NOT ACCURATE CREATININE CLEARANCE IN PREDICTING GLOMERULAR FILTRATION RATE . ESTIMATED GFR I S NOT APPLICABLE FOR DIALYSIS PATIEN TS. POCT-GLUCOSE [id number] 21:33:00 Test Item Value Reference Range Interpretation Comments POC-GLUCOSE METER 295 mg/dL 70-110 H TESTED AT [place] [address] ([facility] (test code = [address] [place] 1538) [id number] POCT-GLUCOSE [id number] 17:47:00 Test Item Value Reference Range Interpretation Comments POC-GLUCOSE METER 277 mg/dL 70-110 H TESTED AT [place] [address] ([facility] (test code = [place] [place] 1538) [address] RAD, CHEST, 2 [id number] 15:44:00Reason for exam:->dyspneaFINAL REPORT HISTORY : dyspnea. [...] lower thoracic vertebral bodies. Signed: Zuleima Graff Verified Date/Time: 01/31/2017 15:44:13 Reading Location: [facility] C0X Ortho Consult Reading Room POCT-GLUCOSE [id number] 11:51:00 Test Item Value Reference Range Interpretation Comments POC-GLUCOSE METER 238 mg/dL 70-110 H TESTED AT [place] [address] ([facility] (test code = [place] [facility] 1538) [address] POCT-GLUCOSE [id number] 09:54:00 Test Item Value Reference Range Interpretation Comments POC-GLUCOSE METER 224 mg/dL 70-110 H TESTED AT [place] [address] ([facility] (test code = [place] [address] [facility] 1538) [id number] CBC W/PLT COUNT & AUTO [id number] 05:34:00 Test Item Value Reference Range Interpretation Comments WHITE BLOOD CELL COUNT ([facility] 9.4 K/ L 3.5-10.5 (test code = 775) RED BLOOD CELL COUNT ([facility] 4.42 M/ L 4.63-6.08 L (test code = 761) HEMOGLOBIN ([facility] (test code = 12.1 GM/DL 13.7-17.5 L 410) HEMATOCRIT (BEAKER) (test code = 39.0 % 40.1-51.0 L 411) MEAN CORPUSCULAR VOLUME (BEAKER) 88.2 fL 79.0-92.2 (test code = 753) MEAN CORPUSCULAR HEMOGLOBIN 27.4 pg 25.7-32.2 (BEAKER) (test code = 751) MEAN CORPUSCULAR HEMOGLOBIN CONC 31.0 GM/DL 32.3-36.5 L (BEAKER) (test code = 752) RED CELL DISTRIBUTION WIDTH 16.5 % 11.6-14.4 H (BEAKER) (test code = 412) PLATELET COUNT (BEAKER) (test 176 K/CU MM 150-450 code = 756) MEAN PLATELET VOLUME (BEAKER) 10.8 fL 9.4-12.4 (test code = 754) NUCLEATED RED BLOOD CELLS 0 /100 WBC 0-0 (BEAKER) (test code = 413) NEUTROPHILS RELATIVE PERCENT 52 % (BEAKER) (test code = 429) LYMPHOCYTES RELATIVE PERCENT 26 % (BEAKER) (test code = 430) MONOCYTES RELATIVE PERCENT 19 % (BEAKER) (test code = 431) EOSINOPHILS RELATIVE PERCENT 2 % (BEAKER) (test code = 432) BASOPHILS RELATIVE PERCENT 0 % (BEAKER) (test code = 437) NEUTROPHILS ABSOLUTE COUNT 4.91 K/ L 1.78-5.38 (BEAKER) (test code = 670) LYMPHOCYTES ABSOLUTE COUNT 2.41 K/ L 1.32-3.57 (BEAKER) (test code = 414) MONOCYTES ABSOLUTE COUNT (BEAKER) 1.81 K/ L 0.30-0.82 H (test code = 415) EOSINOPHILS ABSOLUTE COUNT 0.19 K/ L 0.04-0.54 (BEAKER) (test code = 416) BASOPHILS ABSOLUTE COUNT (BEAKER) 0.02 K/ L 0.01-0.08 (test code = 417) IMMATURE GRANULOCYTES-RELATIVE 0 % 0-1 PERCENT (BEAKER) (test code = 2801) [id number] 05:19:00 Test Item Value Reference Range Interpretation Comments MAGNESIUM (BEAKER) (test code = 1.8 mg/dL 1.6-2.6 627) BASIC METABOLIC [id number] 05:19:00 Test Item Value Reference Range Interpretation Comments SODIUM (BEAKER) 135 meq/L 136-145 L (test code = 381) POTASSIUM (BEAKER) 3.6 meq/L 3.5-5.1 (test code = 379) CHLORIDE (BEAKER) 105 meq/L 98-107 (test code = 382) CO2 (BEAKER) (test 20 meq/L 22-29 L code = 355) BLOOD UREA NITROGEN 46 mg/dL 7-21 H (BEAKER) (test code = 354) CREATININE (BEAKER) 1.61 mg/dL 0.57-1.25 H (test code = 358) GLUCOSE RANDOM 193 mg/dL 70-105 H (BEAKER) (test code = 652) CALCIUM (BEAKER) 8.5 mg/dL 8.4-10.2 (test code = 697) EGFR (BEAKER) (test 42 mL/min/1.73 ESTIMA LUCIANO GFR IS code = 1092) sq m NOT ACCURATE CREATININE CLEARANCE IN PREDICTING GLOMERULAR FILTRATION RATE . ESTIMATED GFR I S NOT APPLICABLE FOR DIALYSIS PATIEN TS. STREP PNEUMONIAE [id number] 23:56:00 Test Item Value Reference Range Interpretation Comments STREP PNEUMONIAE Presumptive negative Presumptive negative ANTIGEN (BEAKER) for pneumococcal for pneumococcal (test code = 1615) pneumonia - see pneumonia - see comment commen Presumptive negative for pneumococcal pneumonia, suggesting no current or recent pneumococcal infection. Infection due to S. pneumoniae cannot be ruled out since the antigen present in the sample may be below the detection limit of the test.LEGIONELLA ANTIGEN, [id number] 23:54:00 Test Item Value Reference Range Interpretation Comments L. PNEUMOPHILA Negative - see Negative fo r L. SEROGP 1 UR AG comment pneumophila (BEAKER) (test code serogrou p 1 antigen, = 1156) suggesting no r ecent or current infe ction with this serog roup. Legionellosis c annot be ruled out si nce other serogroup s and species may cau se disease. INFLUENZA A H1N1 [id number] 23:10:00 Test Item Value Reference Range Interpretation Comments INFLUENZA A RNA Not Detected Not Detected, (BEAKER) (test code = Inconclusive 1545) NOVEL H1N1 RNA (BEAKER) Not Detected Not Detected, (test code = 1546) Inconclusive These assays were performed by real-time RT-PCR (pre sales technical consultant-PCR) utilizing fluorogenic hydrolysis probe technology for the detection of human Influenza A viruses and the differential detection of novel H1N1 Influenza virus in respiratory specimens. The test is composed of (1) an RNA extraction from patient specimen, and (2) pre sales technical consultant-PCR amplification and detection with human Influenza A and novel P6P6-lhnabdvh primers and probes. A well-conserved region of [...] This test was developed and its performance characte ristics determined by the [facility] Pathology Department, Section of Molecular Pathology. It has not been cleared or approved by the U.S. Food and Drug Administration (FDA). SinceFDA approval is not required for clinical use of the test, validation was done as required by The Clinical Laboratory Amendments of 1988.These assays were performed by real-time RT-PCR (pre sales technical consultant-PCR) utilizing fluorogenic hydrolysis probe technology for the detection of human Influenza A viruses and the differential detection of novel H1N1 Influenza virus in respiratory specimens. The test is composed of (1) an RNA extraction from patient specimen, and (2) pre sales technical consultant-PCR amplification and detection with human Influenza A and novel O7X9-llqhngnm primers and probes. A well- conserved region of the Influenza A matrix gene [...] and its performance characteristics determined by the [facility] Pathology Department, Section of Molecular Pathology. It has not been cleared or approved by the U.S. Food and Drug Administration (FDA). Since FDA approval is not required for clinical use of the test, valida tion was done as required by The Clinical Laboratory Amendments of 1988.POCT- GLUCOSE [id number] 23:03:00 Test Item Value Reference Range Interpretation Comments POC-GLUCOSE METER 233 mg/dL 70-110 H TESTED AT [facility] 6720 (BEAKER) (test code = [place]RAV[place] 1538) [address] U/S, RENAL, [id number] 22:23:00Reason for exam:->akiFINAL REPORT U/S, RENAL, COMPLETE CLINICAL INDICATION: "darrell" COMPARISON: None TECHNIQUE: The kidneys and urinary bladder were evaluated using real time dyer scale and color Doppler sonography. FINDINGS:Right kidney: Atrophic echogenic kidney. No hydronephrosis. Left kidney: Atrophic echogenic kidney. No hydronephrosis. Renal Vasculature: Doppler interrogation reveals preserved vascular flow in the main renal arteries and veins bilaterally. The visualized portions of the abdominal aorta and IVC are unremarkable. Urinary bladder: Unremarkable. IMPRESSION: No hydr onephrosis.Chronic findings as above. Signed: Levi Barrios MDReport Verified Date/Time: 01/30/2017 22:23:06 Reading Location: [address] Consult Reading Room SODIUM, RANDOM [id number] 20:40:00 Test Item Value Reference Range Interpretation Comments SODIUM URINE (BEAKER) (test code = < meq/L 243) Reference Range: No NormalsEOSINOPHIL SMEAR, [id number] 20:40:00 Test Item Value Reference Range Interpretation Comments EOSINOPHIL SMEAR, URINE (BEAKER) No EOS seen No EOS seen (test code = 1851) CREATININE, RANDOM [id number] 20:24:00 Test Item Value Reference Range Interpretation Comments CREATININE URINE (BEAKER) (test 113.2 mg/dL code = 375) Reference Range: No NormalsMICROALBUMIN, RANDOM [id number] 20:24:00 Test Item Value Reference Range Interpretation Comments MICROALBUMIN URINE (BEAKER) (test 4.2 mg/dL code = 1794) Reference Range: No NormalsURINALYSIS W/ [id number] 20:14:00 Test Item Value Reference Range Interpretation Comments COLOR (BEAKER) (test code = Yellow 470) CLARITY (BEAKER) (test code = Hazy 469) SPECIFIC GRAVITY UA (BEAKER) 1.013 1.001-1.035 (test code = 468) PH UA (BEAKER) (test code = 5.0 5.0-8.0 467) PROTEIN UA (BEAKER) (test code 20 mg/dL Negative A = 464) GLUCOSE UA (BEAKER) (test code 30 mg/dL Negative A = 365) KETONES UA (BEAKER) (test code Negative Negative = 371) BILIRUBIN UA (BEAKER) (test Negative Negative code = 462) BLOOD UA (BEAKER) (test code = Negative Negative 461) NITRITE UA (BEAKER) (test code Negative Negative = 465) LEUKOCYTE ESTERASE UA (BEAKER) Moderate Negative A (test code = 466) UROBILINOGEN UA (BEAKER) (test 0.2 mg/dL 0.2-1.0 code = 463) RBC UA (BEAKER) (test code = 1 /HPF 519) WBC UA (BEAKER) (test code = 5 /HPF 520) MUCUS (BEAKER) (test code = Rare 1574) SQUAMOUS EPITHELIAL (BEAKER) 1 /HPF (test code = 516) SOURCE(BEAKER) (test code = Urine, Voided 6891) POCT-GLUCOSE [id number] 18:25:00 Test Item Value Reference Range Interpretation Comments POC-GLUCOSE METER 230 mg/dL 70-110 H TESTED AT [place] [address] ([facility]) (test code = [facility] 1538) [address] POCT-GLUCOSE [id number] 13:49:00 Test Item Value Reference Range Interpretation Comments POC-GLUCOSE METER 267 mg/dL 70-110 H TESTED AT [place] [address] ([facility]) (test code = [facility] 1538) [address] HEMOGLOBIN [id number] 11:50:00 Test Item Value Reference Range Interpretation Comments HEMOGLOBIN A1C (BEAKER) (test code = 10.7 % 4.3-6.1 H 368) TROPONIN [id number] 11:42:00 Test Item Value Reference Range Interpretation Comments TROPONIN I (BEAKER) (test code = 0.02 ng/mL 0.00-0.03 397) Troponin I (TnI) levels must be interpreted [...] acidosis, acute neurological disease, and persistent tachyarrhythmia.POCT-GLUCOSE [id number] 09:41:00 Test Item Value Reference Range Interpretation Comments POC-GLUCOSE METER 228 mg/dL 70-110 H TESTED AT [facility] 6720 (BEAKER) (test code = [place] 1538) [address] RAD, CHEST, 1 VIEW, NON [id number] 07:41:00Reason for exam:->eval pneumoniaShould this be performed at the bedside?->YesFINAL REPORT HISTORY : eval pneumonia. Comparison: None Comment: Single portab le view of the chest was obtained. The cardiac silhouette size is enlarged. 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 No pneumothorax or pleural effusion is seen. There is atherosclerotic calcification of the thoracic aorta. There is some patchy left basilar airspace disease. This could represent atelectasis or pneumonitis. Signed: Zuleima Graff [facility] Verified Date/Time: 01/30/2017 07:41:41 ReadingLocation: [facility] B1 C013T Transitional Reading Room MAGNESIUM 2017-01-30 02:54:00 Test Item Value Reference Range Interpretation Comments MAGNESIUM (BEAKER) (test code = 1.6 mg/dL 1.6-2.6 627) BASIC METABOLIC [id number] 02:54:00 Test Item Value Reference Range Interpretation Comments SODIUM (BEAKER) 137 meq/L 136-145 (test code = 381) POTASSIUM (BEAKER) 3.8 meq/L 3.5-5.1 (test code = 379) CHLORIDE (BEAKER) 104 meq/L 98-107 (test code = 382) CO2 (BEAKER) (test 19 meq/L 22-29 L code = 355) BLOOD UREA NITROGEN 48 mg/dL 7-21 H (BEAKER) (test code = 354) CREATININE (BEAKER) 1.76 mg/dL 0.57-1.25 H (test code = 358) GLUCOSE RANDOM 217 mg/dL 70-105 H (BEAKER) (test code = 652) CALCIUM (BEAKER) 8.9 mg/dL 8.4-10.2 (test code = 697) EGFR (BEAKER) (test 38 mL/min/1.73 ESTIMA LUCIANO GFR IS code = 1092) sq m NOT ACCURATE CREATININE CLEARANCE IN PREDICTING GLOMERULAR FILTRATION RATE . ESTIMATED GFR I S NOT APPLICABLE FOR DIALYSIS PATIEN TS. RAPID INFLUENZA A&B [id number] 02:41:00 Test Item Value Reference Range Interpretation Comments RAPID INFLUENZA A AG (BEAKER) Negative Negative, Inconclusive (test code = 1622) RAPID INFLUENZA B AG (BEAKER) Negative Negative, Inconclusive (test code = 1623) CBC W/PLT COUNT & AUTO [id number] 02:07:00 Test Item Value Reference Range Interpretation Comments WHITE BLOOD CELL COUNT (BEAKER) 10.6 K/ L 3.5-10.5 H (test code = 775) RED BLOOD CELL COUNT (BEAKER) 4.75 M/ L 4.63-6.08 (test code = 761) HEMOGLOBIN (BEAKER) (test code = 13.2 GM/DL 13.7-17.5 L 410) HEMATOCRIT (BEAKER) (test code = 42.4 % 40.1-51.0 411) MEAN CORPUSCULAR VOLUME (BEAKER) 89.3 fL 79.0-92.2 (test code = 753) MEAN CORPUSCULAR HEMOGLOBIN 27.8 pg 25.7-32.2 (BEAKER) (test code = 751) MEAN CORPUSCULAR HEMOGLOBIN CONC 31.1 GM/DL 32.3-36.5 L (BEAKER) (test code = 752) RED CELL DISTRIBUTION WIDTH 16.8 % 11.6-14.4 H (BEAKER) (test code = 412) PLATELET COUNT (BEAKER) (test 202 K/CU MM 150-450 code = 756) MEAN PLATELET VOLUME (BEAKER) 10.7 fL 9.4-12.4 (test code = 754) NUCLEATED RED BLOOD CELLS 0 /100 WBC 0-0 (BEAKER) (test code = 413) NEUTROPHILS RELATIVE PERCENT 63 % (BEAKER) (test code = 429) LYMPHOCYTES RELATIVE PERCENT 17 % (BEAKER) (test code = 430) MONOCYTES RELATIVE PERCENT 18 % (BEAKER) (test code = 431) EOSINOPHILS RELATIVE PERCENT 1 % (BEAKER) (test code = 432) BASOPHILS RELATIVE PERCENT 0 % (BEAKER) (test code = 437) NEUTROPHILS ABSOLUTE COUNT 6.60 K/ L 1.78-5.38 H (BEAKER) (test code = 670) LYMPHOCYTES ABSOLUTE COUNT 1.82 K/ L 1.32-3.57 (BEAKER) (test code = 414) MONOCYTES ABSOLUTE COUNT (BEAKER) 1.94 K/ L 0.30-0.82 H (test code = 415) EOSINOPHILS ABSOLUTE COUNT 0.10 K/ L 0.04-0.54 (BEAKER) (test code = 416) BASOPHILS ABSOLUTE COUNT (BEAKER) 0.02 K/ L 0.01-0.08 (test code = 417) IMMATURE GRANULOCYTES-RELATIVE 1 % 0-1 PERCENT (BEAKER) (test code = 2801) POCT-GLUCOSE [id number] 23:18:00 Test Item Value Reference Range Interpretation Comments POC-GLUCOSE METER 230 mg/dL 70-110 H TESTED AT [facility] 6720 (BEAKER) (test code = [place] 1538) [address] CHEM [id number] 10:03:003.1[facility] QQLTW4567-12-43 10:03:002.6 [facility] NqxoiwlNNXTZOLWAOFK5956-05-20 10:03:0011.1[facility]annELECTROLYTES 2016-09-12 10:03:004.1[facility] HovfptvUNGHLJAUCYIJ0503-89-40 10:03:66854Vowfnspd RyppehnFGQPIAGEDHRO6817-15-64 10:03:0025[facility] YxfivkyCDJMNWXEFUAV8237-50-58 10:03:0074[facility] LylnnnlWBVVWUPNCSFU9034-58-99 10:03:0016[facility] RYGRECTLONRW9903-67-87 10:03:30701Xhygmdgf JphpmokFKKRQIZKIAMR2791-02-30 10:03:008.7[facility] WoibpxmRARFHCZZJJDZ3006-61-87 10:03:001.00[facility] JFIMHYBEUBRJ6023-88-66 10:03:07676Ymlxciud DnhddwxIKHEUOXAAX0105-70-69 10:03:00 Normal (09/12/16 5:03 AM)[facility] QliwsejTMHOWQTDAL8884-67-06 10:03:000.0[facility] BdufswwFMXZHNYFIJ8131-17-29 10:03:000.0[facility] PzvdgjjOCSABAYHFA6253-65-66 10:03:0017.0[facility] XtqacouAXYLQWHHCE1938-44-83 10:03:00Normal (09/12/16 5:03 AM) [facility] AnmddbcQHZOJOXSLL4067-30-96 10:03:001.0[facility] HermannHEMATOLOGY 2016-09-12 10:03:0027.0[facility] SgyyksgBKRRZZOJKH6112-35-01 10:03:004.8[facility] BtuiimrVOMEHZGCFM8188-97-53 10:03:002.3[facility] EjykqvcABGPCEYKCK5337-71-68 10:03:0055.0[facility] XwyunoeAIPSUVVJKH7725-56-17 10:03:000.1[facility] CUCKTUOVWI8802-33-71 10:03:001.5[facility] LynwbzaPUKCBHEJKK7942-97-20 10:03:007.7 [facility] JtyhpflIYTGXKMRTA4822-39-04 10:03:00 Test Item Value Reference Range Interpretation Comments MCH (test code = MCH) 29.8 pg 27.0-31.0 [facility] NqjvvmyWYWIVEPGYH5232-53-61 10:03:0088.2[facility] HermannHEMATOLOGY 2016-09-12 10:03:81743Paovarst FtprmueJDPTYEKNQW6810-14-10 10:03:0014.7[facility] LexivppWWFVAFIJIX7053-73-01 10:03:0033.8[facility] HtamoxaDWFKNMPAVB4081-20-27 10:03:003.97[facility] QkitqsdBXMNDTABQI6797-48-28 10:03:0011.8[facility] BBTCOPAMEN6386-20-43 10:03:008.7[facility] TwdyjebFYRCYIXZLF3753-59-60 10:03:00 35.0[facility]annCHEM WYPOZ9579-24-51 23:45:0068[facility]annCHEM PANEL 2016-09-11 23:45:0013.8[facility]annCHEM LTROK3508-72-02 23:45:009.0[facility]annCHEM ABERC6621-10-94 23:45:0026[facility] HermannCHEM WVXFY7828-11-95 23:45:16496Tpcvfuda HermannCHEM ITQFI9878-23-60 23:45:003.8[facility] HermannCHEM VVENR0002-30-72 23:45:13395Omajdkya HermannCHEM FMEUC1970-51-27 23:45:001.07 [facility]annCHEM FPXQP8382-05-81 23:45:0013[facility] HermannCHEM PANEL 2016-09-11 23:45:31754Zldccwlg HermannBLOOD BANK DABNMQD8473-16-53 16:12:00 Negative (09/11/16 11:12 AM)[facility]annCHEM CUWYN3856-57-76 16:12:003.3 [facility]annCHEM WARBB3004-19-75 16:12:001.6[facility] HermannELECTROLYTES 2016-09-11 16:12:009.7[facility] OwoofiqFRGBRXTTCZQD6707-44-37 16:12:0069[facility] TgntnplPFYNYMTIHESO0047-75-05 16:12:0028[facility] ZhkhtomELXRCWRKIPND3585-94-63 16:12:95237Wppxrfyg DejxfclCRGIRPSMPTWV5246-07-70 16:12:003.7[facility] MGHZMFIDJLBK2451-66-56 16:12:008.9[facility] BeqfbveXHVWLRDKFZKQ0888-11-51 16:12:59911Mnuwocsn QcthuggRNVHEFRPKACQ4340-99-89 16:12:001.06[facility] KGPEZABALUHP3214-11-67 16:12:0015[facility] LdlsjhxJITEKJDBHCTA3408-28-70 16:12:00 87[facility] ApadqmtQEZKLOLVHU0689-59-90 16:12:0033.1[facility] HermannHEMATOLOGY 2016-09-11 16:12:93928Wdiaatmn ZzdvdsuKPAQPQAINW6720-67-27 16:12:0011.0[facility] CfetssuQYKOBVIZTR6837-38-27 16:12:007.5[facility] ElbwxkyFVNRWKBYVX3120-56-71 16:12:0089.2[facility] KqwgvtdPHOHSKTMUY6892-51-20 16:12:00 Test Item Value Reference Range Interpretation Comments MCH (test code = MCH) 29.5 pg 27.0-31.0 [facility] HxbjsbpELHMPCQVJT4688-25-64 16:12:003.72[facility]annHEMATOLOGY 2016-09-11 16:12:0014.7[facility] JchtbvnUHAXMIETYQ9021-54-35 16:12:008.2[facility] SiwcbxxINEJZYUAUF0182-36-00 16:12:0033.1[facility] FggdjmvHBRUSBARFE0235-71-41 16:12:00 Test Item Value Reference Range Interpretation Comments PT (test code = PT) 16.6 s 12.0-14.7 [facility] EhowqxhYLCMGGIAKL5144-22-14 16:12:001.32[facility]annHEMATOLOGY 2016-09-11 16:12:00 Test Item Value Reference Range Interpretation Comments PTT (test code = PTT) 43.0 s 22.9-35.8 [facility] RbubjkfYNJVTEYRCW7315-79-66 16:12:001.6[facility]annHEMATOLOGY 2016-09-11 16:12:000.3[facility] HwqegtyFUZTNRRVCO0727-36-82 16:12:001.7[facility] JudlybnWAVXUCKTKL2856-55-23 16:12:000.5[facility] OdoykowRJQTREYWJZ8344-46-29 16:12:004.5[facility] NuktpugGYUPUTLHZD0434-56-73 16:12:003.4[facility] EWQRAPAAFS0450-12-52 16:12:0055.3[facility] TnuickiHZZVKLGXMY2781-13-58 16:12:00 21.2[facility] FeovgrsIYBAPAWHSW4450-97-38 16:12:0019.6[facility] HermannCHEM PANEL 2014-03-05 16:27:009.4[facility] HermannCHEM FJBLQ4804-22-21 16:27:0026[facility] HermannCHEM BCWKI3941-68-35 16:27:0040[facility] HermannCHEM QUXZO7176-53-83 16:27:0045[facility] HermannCHEM QMSXD6331-82-70 16:27:68055Ytngeytb HermannCHEM NDZWI1240-11-73 16:27:004.4[facility] HermannCHEM UJNZL8874-30-44 16:27:35485 [facility]annCHEM YFFKN6359-31-31 16:27:001.7[facility] HermannCHEM PANEL 2014-03-05 16:27:08372Nrumxdqd HermannCHEM LBOIT2163-95-65 16:27:0011.4[facility] UxjxcceAJYYQKFHDN7096-15-43 16:27:007.3[facility] MvakespTCREUUGZZN8824-62-76 16:27:0033.9[facility] BnlfoxlYQHJCEIENJ8951-13-71 16:27:66926Rvknfwfh Tino VKCBBDCQUU7390-58-01 16:27:0013.7[facility] DhhnmfnYPPGSSUTZH4323-32-96 16:27:00 14.emorial ZiwjprqFPBBHXJEEE5827-27-78 16:27:0040.4[facility] HermannHEMATOLOGY 2014-03-05 16:27:00 Test Item Value Reference Range Interpretation Comments MCH (test code = MCH) 31.5 pg 27.0-31.0 [facility] FtnaznlXKXSELXIVK1158-28-30 16:27:0092.8[facility] HermannHEMATOLOGY 2014-03-05 16:27:004.35[facility] AozgvmdDGWVZYBLMO2844-38-84 16:27:009.4[facility] JvffvnoBKFFCVGQPR8733-75-66 16:27:002.4[facility] GcoxmnbQLVJRMSETO0084-45-00 16:27:0014.6[facility] AlrzrgkGWXSTDMLYF0616-70-33 16:27:005.5[facility] LXUOSFMHZW8985-42-39 16:27:0024.1[facility] JxjtwgyAUXDYYRXQP9692-06-81 16:27:00 58.6[facility] ZsbuaohHEOYPKNTPP5435-78-16 16:27:000.0[facility] HermannHEMATOLOGY 2014-03-05 16:27:000.2[facility] EufwpaxBWQKEQFSOX1149-98-08 16:27:000.3[facility] DmfiowuDXLSMBLGVB6410-43-27 16:27:001.4[facility] NksdqzxIHKZPPBEEX3586-76-35 16:27:002.3[facility]
[2019-10-02 19:58] LABS: Absolute Lymphocytes (CBC) 2.1 K/uL (0.7-4.9); Basophils % 0.7 % (0-1.3); Hematocrit 36.2 % (39.6-49.0); Lymphocytes % 25.6 % (15.3-44.8); MPV 7.7 fL (7.6-11.3); RBC Red Blood Cell Count 3.86 M/uL (4.33-5.43)
[2019-10-02 20:13] LABS: Albumin 3.4 g/dL (3.4-5.0); Bilirubin Direct 0.3 mg/dL (0-0.2); Bilirubin Total 0.5 mg/dL (0.2-1.0); Potassium 4.2 mmol/L (3.5-5.1); Protein, Total 8.2 g/dL (6.4-8.2)
[2019-10-02 20:25] LABS: Blood Morphology Comment NOT SEEN (NOT SEEN); Platelet Estimate ADEQ
--- NOTE | 2019-10-02 20:28 | RAD REPORT ---
EXAM DESCRIPTION: [facility]10/02/2019 8:06 pm CLINICAL HISTORY: Right leg swelling. COMPARISON: 2018 FINDINGS: Right common femoral, superficial femoral, popliteal and right posterior tibial veins are compressible and demonstrate augmentation. Doppler demonstrates good flow. IMPRESSION: No evidence of deep venous thrombosis involving the right lower extremity.
--- NOTE | 2019-10-02 21:44 | ER ---
Nurse's Notes [facility] Name: Ely Coley Age: 74 yrs Sex: Male : 1945 Arrival Date: 10/02/2019 Time: 19:04 Bed 26 Private MD: Diagnosis: Cellulitis of right lower limb Presentation: 10/01 19:23 Chief complaint: Patient states: RLE more swollen than left for 1.5 months. Took entire ll1 round of doxycycline, site did not get better. No fever. Coronavirus screen: Client denies travel out of the [place] in the last 14 days. At this time, the client does not indicate any symptoms associated with coronavirus-19. Ebola Screen: Patient denies travel to an Ebola-affected area in the 21 days before illness onset. Initial Sepsis Screen: Does the patient meet any 2 criteria? No. Patient's initial sepsis screen is negative. Risk Assessment: Do you want to hurt yourself or someone else? Patient reports no desire to harm self or others. Onset of symptoms was August 18, 2019. 19:23 Method Of Arrival: Ambulatory 1 19:23 Acuity: MITCH 3 ll1 19:48 Initial Sepsis Screen: Does the patient have a suspected source of infection? No. jd3 Patient's initial sepsis screen is negative. Historical: - Allergies: 19:25 steroids; ll1 - PMHx: 19:25 Atrial Fib; CVA; Diabetes - IDDM; Hypertension; ll1 - PSHx: 19:25 pacemaker; right knee; Cholecystectomy; ll1 - Immunization history:: Flu vaccine is not up to date. - Social history:: Smoking status: Patient denies any tobacco usage or history of. Patient/guardian denies using alcohol, street drugs. Screenin:48 Abuse screen: Denies threats or abuse. Nutritional screening: No deficits noted. jd3 Tuberculosis screening: No symptoms or risk factors identified. Fall Risk Ambulatory Aid- None/Bed Rest/Nurse Assist (0 pts). Gait- Normal/Bed Rest/Wheelchair (0 pts) Mental Status- Oriented to own ability (0 pts). Total Sweeney Fall Scale indicates No Risk (0-24 pts). Assessment: 19:48 General: Appears in no apparent distress. uncomfortable, Behavior is calm, cooperative, jd3 appropriate for age. Pain: Complains of pain in right calf Quality of pain is described as aching. Neuro: Level of Consciousness is awake, alert, obeys commands, Oriented to person, place, time, situation. Cardiovascular: Denies chest pain, Capillary refill < 3 seconds Patient's skin is warm and dry. Respiratory: Airway is patent Respiratory effort is even, unlabored, Respiratory pattern is regular, symmetrical, Denies cough, shortness of breath. GI: No signs and/or symptoms were reported involving the gastrointestinal system. : No signs and/or symptoms were reported regarding the genitourinary system. EENT: No signs and/or symptoms were reported regarding the EENT system. Derm: Skin is intact, Skin is dry, Skin is normal, Skin temperature is warm. Musculoskeletal: Circulation, motion, and sensation intact. Range of motion: intact in all extremities, Swelling present in right leg and left leg. 20:31 Reassessment: Patient appears in no apparent distress at this time. No changes from jd3 previously documented assessment. Patient and/or family updated on plan of care and expected duration. Pain level reassessed. Patient is alert, oriented x 3, equal unlabored respirations, skin warm/dry/pink. 21:33 Reassessment: Patient appears in no apparent distress at this time. No changes from jd3 previously documented assessment. Patient and/or family updated on plan of care and expected duration. Pain level reassessed. Patient is alert, oriented x 3, equal unlabored respirations, skin warm/dry/pink. awaiting disposition. 22:21 Reassessment: Patient appears in no apparent distress at this time. Patient and/or jd3 family updated on plan of care and expected duration. Pain level reassessed. Patient is alert, oriented x 3, equal unlabored respirations, skin warm/dry/pink. Vital Signs: 19:23 BP 106 / 75; Pulse 52; Resp 18; Temp 97.7; Pulse Ox 98% ; Pain 5/10; ll1 20:31 BP 124 / 76; Pulse 61; Resp 18 S; Pulse Ox 100% on R/A; jd3 21:32 BP 128 / 69; Pulse 60; Resp 18 S; Pulse Ox 99% on R/A; jd3 ED Course: 19:04 Patient arrived in ED. ds1 19:14 Meir Chicas PA is PHCP. jmm 19:14 Sudhakar Avery MD is Attending Physician. jmm 19:24 Triage completed. ll1 19:25 Arm band placed on Patient placed in an exam room, on a stretcher. ll1 19:27 Chris Castrejon, RN is Primary Nurse. jd3 19:43 Missed attempt(s): 20 gauge in right antecubital area. Bleeding controlled, band aid jd3 applied, catheter tip intact. 19:47 Inserted saline lock: 20 gauge in right wrist, using aseptic technique. Blood collected.jd3 19:48 Patient has correct armband on for positive identification. Bed in low position. Call jd3 light in reach. Side rails up X 1. Pulse ox on. NIBP on. 20:06 US Extremity Venous Unilateral Ltd In Process Unspecified. EDMS 22:07 No provider procedures requiring assistance completed. jd3 22:21 IV discontinued, intact, bleeding controlled, No redness/swelling at site. Pressure jd3 dressing applied. Administered Medications: 21:52 Drug: Clindamycin 900 mg Route: IVPB; Infused Over: 30 mins; Site: right wrist; jd3 22:20 Follow up: Response: No adverse reaction; IV Status: Completed infusion; IV Intake: [id number] Intake: 22:20 IV: 50ml; Total: 50ml. jd3 Outcome: 21:44 Discharge ordered by . [facility] 22:20 Discharged to home ambulatory, with family. jd3 22:20 Condition: stable 22:20 Discharge instructions given to patient, Instructed on discharge instructions, follow up and referral plans. medication usage, Demonstrated understanding of instructions, follow-up care, medications, Prescriptions given X 1. 22:21 Patient left the ED. jd3 Signatures: Dispatcher [employer] EDMS Meir Chicas PA PA jmm Sanford, Demi ds1 Chris Castrejon, RN RN Yamilka Gonzales RN RN ll1
--- NOTE | 2019-10-02 21:44 | EDPHYS ---
Physician Documentation [facility] Name: Ely Coley Age: 74 yrs Sex: Male : 1945 Arrival Date: 10/02/2019 Time: 19:04 Bed 26 Private MD: ED Physician Sudhakar Avery HPI: 10/01 19:26 This 74 yrs old Male presents to ER via Ambulatory with complaints of Leg jmm Swelling. 19:26 The patient presents with swelling. Onset: The symptoms/episode began/occurred jmm gradually, 2 week(s) ago. Modifying factors: The symptoms are alleviated by nothing. the symptoms are aggravated by nothing. Associated signs and symptoms: Pertinent positives: warmth, Pertinent negatives fever. This is a 74 year old male with a history fo htn, DM, CVA, Atrial fibrillation that presents to the ED with complains of right lower extremity swelling. Patient was seen by Dr. Devries whom prescribed a 10 day course of doxycycline which provided no relief. . Historical: - Allergies: 19:25 steroids; ll1 - PMHx: 19:25 Atrial Fib; CVA; Diabetes - IDDM; Hypertension; ll1 - PSHx: 19:25 pacemaker; right knee; Cholecystectomy; ll1 - Immunization history:: Flu vaccine is not up to date. - Social history:: Smoking status: Patient denies any tobacco usage or history of. Patient/guardian denies using alcohol, street drugs. ROS: 19:26 Constitutional: Negative for fever, chills, and weight loss, Cardiovascular: Negative jmm for chest pain, palpitations, and edema, Respiratory: Negative for shortness of breath, cough, wheezing, and pleuritic chest pain. 19:26 MS/extremity: Positive for swelling. 19:26 All other systems are negative. Exam: 19:26 Constitutional: This is a well developed, well nourished patient who is awake, alert, jmm and in no acute distress. Head/Face: atraumatic. Eyes: EOMI, no conjunctival erythema appreciated ENT: Moist Mucus Membranes Neck: Trachea midline, Supple Chest/axilla: Normal chest wall appearance and motion. Cardiovascular: Regular rate and rhythm. No edema appreciated Respiratory: Normal respirations, no respiratory distress appreciated Abdomen/GI: Non distended, soft Back: Normal ROM 19:26 Musculoskeletal/extremity: swelling noted to the right lower extremity, full dorsalis pulse, compartments are soft, NVI. 19:26 Skin: erythema and swelling noted to the right lower leg. 19:26 Neuro: Orientation: is normal, Mentation: is normal, Memory: is normal. 19:26 Psych: Behavior/mood is pleasant, cooperative. Vital Signs: 19:23 BP 106 / 75; Pulse 52; Resp 18; Temp 97.7; Pulse Ox 98% ; Pain 5/10; ll1 20:31 BP 124 / 76; Pulse 61; Resp 18 S; Pulse Ox 100% on R/A; jd3 21:32 BP 128 / 69; Pulse 60; Resp 18 S; Pulse Ox 99% on R/A; jd3 MDM: 19:20 Patient medically screened. [facility] 21:42 Data reviewed: vital signs, nurses notes. Counseling: I had a detailed discussion with shanon the patient and/or guardian regarding: the historical points, exam findings, and any diagnostic results supporting the discharge/admit diagnosis, lab results, radiology results, the need for outpatient follow up, to return to the emergency department if symptoms worsen or persist or if there are any questions or concerns that arise at home. ED course: Patient is alert and non toxic in appearance in the ED. US is negative. Patient is advised to follow up with pcp and otherwise given strict return precautions. patient understood and agrees with the plan of care. . 21:43 Data reviewed: lab test result(s), radiologic studies, ultrasound. [facility] 10/01 19:24 Order name: Basic Metabolic Panel; Complete Time: 20:38 [facility] 10/01 19:24 Order name: CBC with Diff; Complete Time: 20:38 [facility] 10/01 19:24 Order name: Hepatic Function; Complete Time: 20:38 [facility] 10/01 19:24 Order name: Lipase; Complete Time: 20:38 [facility] 10/01 19:24 Order name: Procalcitonin; Complete Time: 21:06 [facility] 10/01 19:24 Order name: Lactate; Complete Time: 20:38 [facility] 10/01 19:24 Order name: IV Saline Lock; Complete Time: 19:47 [facility] 10/01 19:24 Order name: Labs collected and sent; Complete Time: 19:47 [facility] 10/01 19:24 Order name: Blood Culture Adult (2) [facility] 10/01 19:24 Order name: US Extremity Venous Unilateral Ltd; Complete Time: 20:38 [facility] 10/01 20:02 Order name: Manual Differential; Complete Time: 20:38 EDMS Administered Medications: 21:52 Drug: Clindamycin 900 mg Route: IVPB; Infused Over: 30 mins; Site: right wrist; jd3 22:20 Follow up: Response: No adverse reaction; IV Status: Completed infusion; IV Intake: [id number] Disposition: 10/02 06:51 Co-signature as Attending Physician, Sudhakar Avery MD I agree with the assessment and tw4 plan of care. Disposition: 10/02/19 21:44 Discharged to Home. Impression: Cellulitis of right lower limb. - Condition is Stable. - Discharge Instructions: Cellulitis, Adult. - Prescriptions for Clindamycin HCl 300 mg Oral Capsule - take 1 capsule by ORAL route every 6 hours for 10 days; 40 capsule. - Medication Reconciliation Form, Thank You Letter, Antibiotic Education, Prescription Opioid Use form. - Follow up: Private Physician; When: 2 - 3 days; Reason: Recheck today's complaints, Continuance of care, Re-evaluation by your physician. Signatures: Dispatcher [employer] EDMS Meir Chicas PA PA [facility] Chris Castrejon RN RN Sudhakar Azevedo MD MD tw4 Yamilka Welsh RN RN ll1 Corrections: (The following items were deleted from the chart) 10/01 22:21 21:44 10/02/2019 21:44 Discharged to Home. Impression: Cellulitis of right lower limb. jd3 Condition is Stable. Forms are Medication Reconciliation Form, Thank You Letter, Antibiotic Education, Prescription Opioid Use. Follow up: Private Physician; When: 2 - 3 days; Reason: Recheck today's complaints, Continuance of care, Re-evaluation by your physician. [facility]
[2019-10-02] MEDS ORDERED: CLINDAMYCIN 900MG/D5W 900 MG/50 ML IVPB IV ONE (21:59)
== END 2019-10-02 22:21 | disposition home or self-care (01) ==
LOC: ER 19:02
DX: L03.115 Cellulitis of right lower limb (principal); I10 Essential (primary) hypertension; Z88.8 Allergy status to other drugs, medicaments and biological substances
CPT/HCPCS: 36415; 80048; 80076; 83605; 83690; 84145; 85025; 87040; 93971; 96365; 99284

== ENCOUNTER 2020-03-16 14:40 | Emergency (ER) | payer OTHER ==
--- OUTSIDE RECORDS SUMMARY | 2020-03-16 14:43 | XMS REPORT | Clinical Summary ---
:1945 Author Organization [facility] Address [address] [place] [address] Care Team Providers Name Role Phone Unavailable [...] Not on file Last Filed Vital Signs Not on file Plan of Treatment Not on file Results Not on fileafter 03/16/2019 Insurance Payer Benefit Plan / Subscriber ID Effective Phone Address T ype Group Dates [employer]IG[employer] CIGNA [id number] 2016-Pre [facility] ALL sent Contracted Advance Directives For more information, please contact: [phone] Code Status Date Activated Date Inactivated Comments Full Code 01/29/2017 11:40 PM 02/08/2017 6:18 PM This code status was determined by: Patient
--- OUTSIDE RECORDS SUMMARY | 2020-03-16 14:44 | XMS REPORT | Continuity of Care Document ---
:1945 Author Organization [email or web address] Care Team Providers Name Role Phone [email or web address] Unavailable Un available Problems Problem Status Onset Classification Date Comments Sourc e Date Reported PAROXYSMAL AFIB, Active 08/29/19 [facility] BRADYCARDIA 17 [facility] CCL/DUAL PMAKER Active 08/29/19 [place] IMPLANT/BS/DX: 17 Medic al I48.0--PA Center 362.56 EPIRETINAL Active 02/14/19 [facility] MEMBRANE LEFT EYE 15 [facility] Atrial Resolved Problem 09/15/2016 [facility] fibrillation Medical (disorder) Center Chest pain Resolved Problem 09/15/2016 [facility] ([facility]) [facility] Congestive heart Resolved Problem 09/15/2016 [facility] failure (disorder) [facility] Cerebrovascular Resolved Problem 09/15/2016 [facility] accident [facility] (disorder) Center Dizziness Resolved Problem 09/15/2016 [facility] (finding) [facility] Diabetes mellitus Active Problem 09/15/2016 [facility] (disorder) [facility] Edema (finding) Resolved Problem 09/15/2016 [facility] Syncope (disorder) Resolved Problem 09/15/2016 [facility] Bradycardia Resolved Problem 09[place] ([place] [facility] [place] Hypertensive Active Problem 09/15/2016 [place] as disorder, systemic [facility] arterial [facility] (disorder) [facility] Medications Medication Details Route Status Patient Ordering Order Source Instructions Provider Date Diltiazem 60 mg, No Longer [facility] Route: PO, Active 2016 Medical Drug form: Center TAB, Daily, Dosing Weight 116.364, kg, Start date: 09/13/16 9:00:00 CDT, Duration: 30 day, Stop date: 10/12/16 9:00:00 CDT metoprolol tartrate Notes: (Same Inactive [facility] as: 2017 Medical Lopressor) [place] Insulin regular 60 units) Inactive [facility] WASTE: F/P - 2017 Medical Black; E - Center Municipal Trash Bin Stable for 28 days at room temperature Expires in days from __Date Acetaminophen 300 MG 1 tab, PO, Active [place] / Codeine Phosphate Q4H, PRN 2017 Med ical 30 MG Oral Tablet Pain Score Jordi ter 4-6, 0 Refill(s) Dextrose 50% Syringe 25 gm, 50 Inactive [place] mL, Route: 2017 Medical IVP, Drug Center Form: INJ, Dosing Weight 116.364, kg, PRN, PRN Blood Glucose Results, Start date: 09/12/16 11:50:00 CDT, Duration: 30 day, Stop date: 10/12/16 11:49:00 CDT Glucagon 1 mg, Route: Inactive [place] IM, Drug 2016 Medical form: Center PDR/INJ, PRN, Dosing Weight 116.364, kg, PRN Blood Glucose Results, Start date: 09/12/16 11:50:00 CDT, Duration: 30 day, Stop date: 10/12/16 11:49:00 CDT valsartan Notes: Same Inactive [place] as Diovan 2017 Medical Center Cefazolin Notes: (Same [place] Longer [place] As: Ancef, Active 2016 Medical Kefzol) Center MEDICATION WASTE Product Size: 1000 mg Product Wasted: _0_ mg Calcium Gluconate Notes: [place] Longer [place] WASTE: F/P - Active 2016 Medical Sink; E - Center Municipal Trash Bin Magnesium Oxide Notes: (Same No Longer 09/12/ [facility] as: Mag-Ox Active 2016 Medical 400) Center Magnesium oxide [id number] elemental magnesium Dose=____mg magnesium oxide (___mg elemental [...] CDT Potassium Chloride Notes: (Same No Longer [place] as: KCL) Active 2016 Medical Infuse over Center 2 hours. potassium Notes: (Same No Longer Ruthie ndiaye phosphate-sodium as: Active 2016 Medical phosphate 250 mg-280 Phos-NaK) C enter mg-160 mg oral Each 1.5 gm powder for pkt has reconstitution 250mg phosphorous. Mix w/2.5oz water and stir. potassium phosphate Notes: (Same No Longer 09/12 [place] as: K Active 2016 Medical Phosphate.) Center 1 mMol phoshate has 1.47 mEq potassium Infuse over 4 hours Magnesium Sulfate Notes: [place] Longer [place] WASTE: F/P - Active 2016 Medical Sink; E - Center Municipal Trash Bin Magnesium Sulfate Notes: [place] WASTE: F/P - 2017 Medical Sink; E - Center Municipal Trash Bin Potassium Chloride Notes: (Same Inactive [facility] as: K-Dur 2016 Medical 20) "Do Not Center Crush" With food and full glass of water Pradaxa Notes: DO No Longer [place] NOT break, Active 2016 Medical chew or open Center capsules for administrati on. metoprolol tartrate 25 mg, Inactive [place] Route: PO, 2016 Medical Drug form: [place] TAB, Q12H, Dosing Weight 116.364, kg, Start date: 09/11/16 21:00:00 CDT, Duration: 30 day, Stop date: 10/11/16 9:00:00 CDT Lasix 20 mg, Inactive [place] Route: IVP, 2016 Medical Drug form: [place] INJ, ONCE, Dosing Weight 116.364, kg, Start date: 09/11/16 18:38:00 CDT, Stop date: 09/11/16 18:38:00 CDT Diltiazem Notes: (Same No Longer [place]ie ndiaye as: Active 2016 Medical Cardizem) [place] tramadol 50 mg, PO, No Longer [place] [...] metoprolol tartrate Notes: (Same No Longer 09/11 [facility] as: Active 2016 Medical Lopressor) Center Acetaminophen 300 MG 1 tab, PO, No Longer / Codeine Phosphate Q4H, PRN Active 2016 Med ical 15 MG Oral Tablet Pain Score Jordi ter 4-6, # 12 tab, 0 Refill(s) cephalexin 500 mg 500 mg = 1 Active [facility] oral capsule cap, PO, 2017 Medical TID, # 15 Center cap, 0 Refill(s) acetaminophen-codein Notes: Do No Longer [facility] e #3 not exceed Active 2016 Medical 4gm/day of Center acetaminophe n. (Same as: Tylenol with Codeine # 3) dabigatran etexilate 150 mg = 1 On Hold [facility] 150 MG Oral Capsule cap, PO, 2017 Med ical [Pradaxa] Q12H, # 180 Center cap, 3 Refill(s) Metformin 850 mg, PO, Active [facility] QAM, 0 2016 Medical Refill(s) Center valsartan 320 mg 320 mg = 1 Active [place] oral tablet tab, PO, 2017 Medical Daily, # 90 Center tab, 0 Refill(s) Glipizide 10 MG Oral 10 mg = 1 Active [place] Tablet tab, PO, 2017 Medical BID-Before [place] Meals, # 180 tab, 1 Refill(s) sodium chloride 0.9% 1,000 mL, No Longer [facility] 1000 ml INJ 1,000 mL Rate: 50 Active 2016 [place] dical ml/hr, [place] Infuse over: 20 hr, Route: IV, Dosing Weight 116.364 kg, Total Volume: 1,000, Start date: 09/11/16 11:04:00 CDT, Duration: 30 day, Stop date: 10/11/16 11:03:00 CDT Phenylephrine 1 drp, Inactive Hydrochloride 25 Route: [address] [facility] [address] MG/ML Ophthalmic Operative Solution [Mydfrin] Eye, Q5Min, Drug form: SOLN, Start date: 03/06/14 11:05:00, Duration: 3 doses or times, Stop date: 03/06/14 11:15:00 Cyclopentolate Notes: (Same Inactive hydrochloride 10 As: [address] [facility] [address] MG/ML Ophthalmic Cyclogyl) Solution [Cyclogyl] Tropicamide 10 MG/ML Notes: (Same Inactive 03/06 Ophthalmic Solution As: 2014 [place] [Mydriacyl] Mydriacyl, Opticyl, Tropicacyl) canagliflozin 100 MG 100 mg = 1 Active Oral Tablet tab, PO, 2014 [facility] [Invokana] Daily, 0 Refill(s) lisinopril 20 mg 20 mg = 1 Active oral tablet tab, PO, 2014 [facility] Daily, 0 Refill(s) glyBURIDE 5 mg oral 10 mg = 2 Active tablet tab, PO, 2014 [facility] BID, 0 Refill(s) Aspirin Low Dose 81 PO, Daily, 0 Active mg oral tablet Refill(s) 2014 [facility] Hydrochlorothiazide 1 tab, PO, Active H 50 MG / Triamterene Daily, # 30 2014 [facility] 75 MG Oral Tablet tab, 0 Refill(s) Allergies, Adverse Reactions, Alerts Substance Category Reaction Severity Reaction Status Date Comments S ource type Reported NKFA Assertion Drug Active [facility] as allergy Medical Center Immunizations No Data Provided for This Section Results Order Name Results Value Reference Date Interpretation Comments Kathia rce Range CHEM PANEL Phosphorus 3.1 2.5 - 4.5 09/12 [facility] CHEM PANEL Magnesium 2.6 1.8 - 2.4 09/12 [facility] ELECTROLYTE AGAP 11.1 10.0 - 08 [facility] S 20.0 [facility] ELECTROLYTE Potassium 4.1 3.5 - 5.1 09/12 [facility] ELECTROLYTE Chloride Lvl 105 95 - 109 09/12 [place] as [facility] ELECTROLYTE CO2 25 24 - 32 09/12 [facility] ELECTROLYTE eGFR 74 09/12 Result [facility] Comment: The Medical eGFR is Center calculated [...] ELECTROLYTE BUN 16 7 - 22 09/12 [facility] ELECTROLYTE Glucose Lvl 177 70 - 99 09/12 [facility] ELECTROLYTE Calcium Lvl 8.7 8.5 - 10.5 09/12 [place] [facility] ELECTROLYTE Creatinine 1.00 0.50 - 09/12 [facility] S Lvl 1.40 [facility] ELECTROLYTE Sodium Lvl 137 135 - 145 09/12 [facility] s S [facility] HEMATOLOGY Plt Morph Normal 09/12 [facility] (09/12/16 5:03 AM) [facility] HEMATOLOGY Bands 0.0 0.0 - 11.0 09/12 [facility] HEMATOLOGY Atypical 0.0 <=0.0 % 09/12 [facility] Lymphs [facility] HEMATOLOGY Monocytes 17.0 2.0 - 12.0 09/12 [facility] HEMATOLOGY RBC Morph Normal 09/12 [facility] (09/12/16 5:03 AM) [facility] HEMATOLOGY Eosinophils 1.0 0.0 - 4.0 09/12 [facility] HEMATOLOGY Lymphocytes 27.0 20.0 - 09/12 [place] 40.0 [facility] HEMATOLOGY Segs-Bands # 4.8 1.5 - 8.1 09/12 [facility] HEMATOLOGY Lymphocytes 2.3 1.0 - 5.5 09/12 [facility] # [facility] HEMATOLOGY Segs 55.0 45.0 - 09/12 75.0 [facility] HEMATOLOGY Eosinophils 0.1 0.0 - 0.5 09/12 [place] # /2016 [facility] HEMATOLOGY Monocytes # 1.5 0.0 - 0.8 09/12 [place] /2016 [facility] HEMATOLOGY MPV 7.7 7.4 - 10.4 09/12 [facility] HEMATOLOGY MCH 29.8 27.0 - 09/12 31.0 [facility] HEMATOLOGY MCV 88.2 80.0 - 09/12 [place] 94.0 [facility] HEMATOLOGY Platelet 177 133 - 450 09/12 [facility] HEMATOLOGY RDW 14.7 11.5 - 09/12 14.5 [facility] HEMATOLOGY MCHC 33.8 32.0 - 09/12 36.0 [facility] HEMATOLOGY RBC 3.97 4.70 - 09/12 6.10 [facility] HEMATOLOGY Hgb 11.8 14.0 - 09/12 18.0 [facility] HEMATOLOGY WBC 8.7 3.7 - 10.4 09/12 [facility] HEMATOLOGY Hct 35.0 42.0 - 09/12 54.0 [facility] CHEM PANEL eGFR 68 09/11 Result Comment: [...] PANEL AGAP 13.8 10.0 - 09/11 20. [facility] CHEM PANEL Calcium Lvl 9.0 8.5 - 10.5 09/11 [facility] CHEM PANEL CO2 26 24 - 32 09/11 [facility] CHEM PANEL Chloride Lvl 104 95 - 109 09/11 [facility] CHEM PANEL Potassium 3.8 3.5 - 5.1 09/11 [facility] CHEM PANEL Sodium Lvl 140 135 - 145 09/11 [facility] CHEM PANEL Creatinine 1.07 0.50 - 09/11 [place] Lvl 1.40 [facility] CHEM PANEL BUN 13 7 - 22 09/11 [facility] CHEM PANEL Glucose Lvl 146 70 - 99 09/11 [facility] BLOOD BANK ABO/Rh O POS 09/11 [facility] BLOOD BANK Antibody Negative 09/11 [facility] RESULTS Scrn (09/11/16 11:12 AM) [facility] CHEM PANEL Phosphorus 3.3 2.5 - 4.5 09/11 [facility] CHEM PANEL Magnesium 1.6 1.8 - 2.4 09/11 [facility] ELECTROLYTE AGAP 9.7 10.0 - 08 S 20.0 [facility] ELECTROLYTE eGFR 69 09/11 Result Comment: The [...] ELECTROLYTE CO2 28 24 - 32 09/11 [facility] ELECTROLYTE Chloride Lvl 102 95 - 109 09/11 [place] as S [facility] ELECTROLYTE Potassium 3.7 3.5 - 5.1 08 [place] S Lvl /2016 [facility] ELECTROLYTE Calcium Lvl 8.9 8.5 - 10.5 09/11 [place] [facility] ELECTROLYTE Sodium Lvl 136 135 - 145 09/11 [place] [facility] ELECTROLYTE Creatinine 1.06 0.50 - 08 [facility] S Lvl 1.40 /2016 [facility] ELECTROLYTE BUN 15 7 - 22 08 [facility] ELECTROLYTE Glucose Lvl 87 70 - 99 08 [facility] HEMATOLOGY Hct 33.1 42.0 - 08 54.0 [facility] HEMATOLOGY Platelet 188 133 - 450 09/11 [facility] HEMATOLOGY Hgb 11.0 14.0 - 09/11 18.0 [facility] HEMATOLOGY MPV 7.5 7.4 - 10.4 09/11 [facility] HEMATOLOGY MCV 89.2 80.0 - 09/11 [place] 94.0 [facility] HEMATOLOGY MCH 29.5 27.0 - 08 31.0 [facility] HEMATOLOGY RBC 3.72 4.70 - 08 6.10 [facility] HEMATOLOGY RDW 14.7 11.5 - 08 14.5 /2016 [facility] HEMATOLOGY WBC 8.2 3.7 - 10.4 09/11 [facility] HEMATOLOGY MCHC 33.1 32.0 - 08 [place] 36.0 [facility] HEMATOLOGY PT 16.6 12.0 - 08 [place] 14.7 [facility] HEMATOLOGY INR 1.32 0.85 - 08 [place] 1.17 [facility] HEMATOLOGY PTT 43.0 22.9 - 08 [place] 35.8 [facility] HEMATOLOGY Monocytes # 1.6 0.0 - 0.8 08 a [facility] HEMATOLOGY Eosinophils 0.3 0.0 - 0.5 09/11 [place] # /2016 [facility] HEMATOLOGY Lymphocytes 1.7 1.0 - 5.5 09/11 [place] # /2016 [facility] HEMATOLOGY Basophils 0.5 0.0 - 1.0 09/11 [facility] HEMATOLOGY Segs-Bands # 4.5 1.5 - 8.1 09/11 [place] [facility] HEMATOLOGY Eosinophils 3.4 0.0 - 4.0 09/11 [place] [facility] HEMATOLOGY Segs 55.3 45.0 - 09/11 [place] 75.0 [facility] HEMATOLOGY Lymphocytes 21.2 20.0 - 08 [place] 40.0 [facility] HEMATOLOGY Monocytes 19.6 2.0 - 12.0 09/11 [facility] CHEM PANEL Calcium Lvl 9.4 8.5 - 10.5 03/05 [facility] CHEM PANEL CO2 26 24 - 32 03/05 [facility] CHEM PANEL eGFR 40 03/05 <sup>1</sup>R esult [facility] Comment: The eGFR is calculated using [...] PANEL BUN 45 7 - 22 03/05 [facility] CHEM PANEL Glucose Lvl 100 70 - 99 03/05 <sup>2</sup>I nterpretive [facility] Data: Adult reference range values reflect the clinical guidelines
of the [place] [employer]. CHEM PANEL Potassium 4.4 3.5 - 5.1 03/05 [facility] CHEM PANEL Chloride Lvl 106 95 - 109 03/05 [facility] CHEM PANEL Creatinine 1.7 0.5 - 1.4 03/05 [facility] CHEM PANEL Sodium Lvl 139 135 - 145 03/05 [facility] CHEM PANEL AGAP 11.4 10.0 - 03/05 [facility] 20.0 /2014 [facility] HEMATOLOGY MPV 7.3 7.4 - 10.4 03/05 [facility] HEMATOLOGY MCHC 33.9 32.0 - 03/05 [facility] 36.0 /2014 [facility] Platelet 198 133 - 450 03/05 [facility] HEMATOLOGY Hgb 13.7 14.0 - 03/05 [facility] 18.0 /2014 [facility] HEMATOLOGY RDW 14.6 11.5 - 03/05 [facility] 14.5 /2014 [facility] HEMATOLOGY Hct 40.4 42.0 - 03/05 [facility] 54.0 /2014 [facility] HEMATOLOGY MCH 31.5 27.0 - 03/05 [facility] 31.0 /2014 [facility] HEMATOLOGY MCV 92.8 80.0 - 03/05 94.0 /2014 [facility] HEMATOLOGY RBC 4.35 4.70 - 03/05 MH 6.10 /2014 [facility] WBC 9.4 3.7 - 10.4 03/05 [facility] HEMATOLOGY Eosinophils 2.4 0.0 - 4.0 03/05 [facility] HEMATOLOGY Monocytes 14.6 2.0 - 12.0 03/05 [facility] HEMATOLOGY Segs-Bands # 5.5 1.5 - 8.1 03/05 [facility] HEMATOLOGY Lymphocytes 24.1 20.0 - 03/05 40.0 /2014 [facility] HEMATOLOGY Segs 58.6 45.0 - 03/05 75.0 /2014 [facility] HEMATOLOGY Basophils # 0.0 0.0 - 0.2 03/05 [facility] HEMATOLOGY Eosinophils 0.2 0.0 - 0.5 03/05 [facility] HEMATOLOGY Basophils 0.3 0.0 - 1.0 03/05 [facility] HEMATOLOGY Monocytes # 1.4 0.0 - 0.8 03/05 [facility] Lymphocytes 2.3 1.0 - 5.5 03/05 /2014 [facility] Pathology Reports No Data Provided for This Section Diagnostic Reports Report Value Date Source Chest 2 views DX EXAM: XR CHEST 2 VIEWS 09/12/2016 [facility] DATE: 09/12/2016 3:00 AM CDT Cente r [...] one view, 09/11/2016 at 1752 hours 017 [facility] Placement DX HISTORY: 71-year-old man with line [...] Source Temperature Oral (F) 97.9 F 09/12/2016 [facility] Respitory Rate 23 09/12/2016 [facility] Systolic (mm Hg) 143 09/12/2016 [facility] Diastolic (mm Hg) 68 09/12/2016 [facility] Respitory Rate 20 09/12/2016 [facility] Systolic (mm Hg) 148 09/12/2016 [facility] Diastolic (mm Hg) 73 09/12/2016 [facility] Respitory Rate 21 09/12/2016 [facility] Systolic (mm Hg) 129 09/12/2016 [facility] Diastolic (mm Hg) 61 09/12/2016 [facility] Temperature Oral (F) 97.9 F 09/12/2016 [facility] Temperature Oral (F) 97.6 F 09/12/2016 [facility] BMI Calculated 34.79 09/11/2016 [facility] Weight 116.364 09/11/2016 [facility] Height 182.88 cm 09/11/2016 [facility] Systolic (mm Hg) 100 03/06/2014 [facility] Diastolic (mm Hg) 55 03/06/[address] [facility] [address] Respitory Rate 16 03/06/2014 [facility] Diastolic (mm Hg) 75 03/06/[address] [facility] [address] Systolic (mm Hg) 100 03/06/2014 [facility] Respitory Rate 17 03/06/2014 [facility] Diastolic (mm Hg) 49 03/06/[address] [facility] [address] Systolic (mm Hg) 101 03/06/2014 [facility] Respitory Rate 14 03/06/2014 [facility] Heart Rate 97 03/06/2014 [facility] Heart Rate 96 03/05/2014 [facility] BMI Calculated 38.83 03/05/2014 [facility] Weight 126.3 03/05/2014 [facility] Height 180.34 cm 03/05/2014 [facility] Encounters Location Location Encounter Encounter Reason Attending ADM DC Stat us Source Details Type Number For Provider Date Date Visit [facility] OBS Day [id number] Jean Carlos 03/06 03/06 [facility] /2014 [facility] Bedded [id number] Eddie 09/11 09/12 [facility] Outpatient Jacquelin /2016 [facility] Procedures Procedure Code Date Perfomer Comments Source Arthroplasty of 92333249 2013 tight [facility] knee<sup>1</sup> [facility] Procedure<sup>2</s 97714914 right [place] toe ,i/[address],[facility] Assessment and Plan Assessment and Plan Date Source Extracted from:Title: CCU note 09/12/2016 [facility] Author: Eddie Roper MD Date: 09/12/16 The patient was seen and examined with t [place] resident. The relevant lab results, imaging and EKGs were personally reviewed, and the medications were reconciled. I agree with above mentioned assessment and plan. -- Doing well today, send home Extracted from:Title: [facility] CCU Note Author: Daniel Bergman MD Date: 09/11/16 Patient: LEVI COLEY KRYSTA MR N: [id number] Age: 71 years Sex: Male : 1945 [...] vision deficits) and HTN who reports to [facility] for PPM inser tion, now s/p [...] DM - Diabetes mellitus / SNOMED CT 743296376 / Confirmed Hypertension / SNOMED CT 21505697 / Confirmed, Active Problems (2) DM - Diabetes mellitus Hypertension Histories Past Medical History: Active Hypertension (46879720) DM - Diabetes mellitus (130300926) Resolved Atrial fibrillation (0335482412): Resolved. Bradycardia (6798184193): Resolved. CHF (congestive heart failure) (303207094): Resolved. Syncope (2512100047): Resolved. Dizziness (7444616917): Resolved. Chest pain (78297252): Resolved. CVA (cerebral vascular accident) (787180503): Resolved. Edema (093668045): Resolved. Family History: History is unknown. Procedure history: Arthroplasty of knee (92299304). Comments: 03/05/2014 11:13 - Sarahi Adrian LVN 2013 tight Procedure ([id number]). Comments: 03/05/2014 11:13 - Sarahi Adrian LVN [...] 17:30 Indwelling Urinary Catheter: Urethral 14 Fr [facility] . Impression and Plan Assessment: Mr. Coley is a 71 year old white male wit h PMH of atrial fibrillation, sick sinus syndrome, symptomatic bradycardia, DM, CVA (2014, peripheral vision deficits) and HTN who reports to [facility] for PPM inse rtion, now s/p [...] - Follow-up in 2 weeks with primary Water Mangle Tender. A-flutter - Continue to wean nicardipine gtt [...] MD Resident Physician Department of Internal Medicine [facility] CCU/CIMU Daily Patient Safety Checklist Yes No CAD/CHF/PCI Requirements: 1. ASA x RI/CAD/PCI/CABG 2. DELANEY Inhibitor or ARB x CHF/DIABETES 3. Beta Rachid x POST RI/CHF/PCI 4. Statin x CAD/PCI/CABG 5. DAPT post [...] Case Management/Social Work Consult? x Diagnosis Bradycardia (MPV85-WQ R00.1, Working, Medical). Atrial flutter (FQB36-WT I48.92, Working, Medical). DM - Diabetes mellitus (FUS90-MX E13.9, Working, Medical). CVA (cerebral vascular accident) (PML76-SQ I63.9, Working, edical). Hypertension (XXX35-UO I10, Working, Medical). Addendum by Eddie Roper MD on 09/12/2016 10:39 The patient was seen and examined with t resident. The relevant lab results, imaging and EKGs were personally reviewed, and the medications were reconciled. I agree with above mentioned assessment and plan. Plan of Care No Data Provided for This Section Social History Social History Date Source Social History TypeResponse 03/05/2014 [facility] Substance Abuse Use: None Sexual 1 Exercise 2 Employment/School 3 Alcohol Use: Never, Previous treatment: None Smoking Status Former smoker, Type: Cigars, Exposure to Tobacco Smoke None, Cigarette Smoking Last 365 Days Yes, Reg Smoking Cessation Counseling Yes [id number] comments Social History TypeResponse 03/05/2014 [facility] Substance Abuse Use: None. Sexual 1 Exercise 2 Employment/School 3 Alcohol Never, Previous treatment: None. Smoking Status Former smoker; Type: Cigars; Exposure to Tobacco Smoke None; Cigarette Smoking Last 365 Days Yes; Reg Smoking Cessation Counseling Yes [id number] comments Family History No Data Provided for This Section Advance Directives No Data Provided for This Section Functional Status No Data Provided for This Section
--- OUTSIDE RECORDS SUMMARY | 2020-03-16 14:47 | XMS REPORT | Continuity of Care Document ---
:1945 Author Organization [facility] t Address [address] [place] [address] Care Team Providers Name Role Phone DANNY [...] is 2- [facility] - 00:[facility]: Medical 00 Amo 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 2- Yuliya kes - 00:00: Medical 00 Amo DARRELL (acute DARRELL (acute Disease Active 2016-[address] kidney kidney 2-23 [facility] - injury) injury) 00:00: Medical 00 Amo Pneumonia Pneumonia Disease Active 2016-[address] [facility] [address] [facility]- [facility] - 00:[facility]: Medical 00 Amo PAROXYSMAL Diagnosis Active 2016-09-14 Memoria AFIB, 08-28 10:10:00 l BRADYCARDI 00:00: Pepe Caldwell PAROXYSMAL 00 AFIB, BRADYCARDI A Active 08/28/2016 [facility] CCL/DUAL Diagnosis Active 2016-08-31 Tracy DONALDSON 08-28 15:00:00 l IMPLANT/BS CCL/DUAL 00:00: Maurizio rmann /DX: PMAKER 00 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 Active 08/28/2016 [facility] 362.56 Diagnosis Active 2014-06-04 Mem oria EPIRETINAL 1-07 10:13:00 l MEMBRANE 362.56 00:00: Pepe n LEFT EYE EPIRETINAL 00 MEMBRANE LEFT EYE Active 02/14/2014 [facility] Atrial Problem Resolve 2016-09-15 Niko reynold fibrillati d 00:18:55 l on Atrial Tino (disorder) fibrillati on (disorder) Resolved Problem 09/15/2016 [facility] Chest pain Problem Resolve 2016-09-15 Memoria (finding) d 00:18:55 l Chest Tino pain (finding) Resolved Problem 09/15/2016 [facility] Congestive Problem Resolve 2016-09-15 Memoria heart d 00:18:55 l failure [place] (disorder) Congestive heart failure (disorder) Resolved Problem 09/15/2016 [facility] Cerebrovas Problem Resolve 2016-09-15 Memoria cular d 00:18:55 l accident Tino (disorder) Cerebrovas cular accident (disorder) Resolved Problem 09/15/2016 [facility] Dizziness Problem Resolve 2016-09-15 M emoria (finding) d 00:18:55 l [place] Dizziness (finding) Resolved Problem 09/15/2016 [facility] Edema Problem Resolve 2016-09-15 Niko reynold (finding) d 00:18:55 l Edema T[place] (finding) Resolved Problem 09/15/2016 [facility] Syncope Problem Resolve 2016-09-15 Mem oria (disorder) d 00:18:55 l Syncope [place] (disorder) Resolved Problem 09/15/2016 [facility] Bradycardi Problem Resolve 2016-09-15 Memoria a d 00:18:55 l (disorder) Pepe n Bradycardi a (disorder) Resolved Problem 09/15/2016 [facility] Diabetes Problem Active 2016-09-15 Mem oria mellitus 00:18:55 l (disorder) Diabetes He rmann mellitus (disorder) Active Problem 09/15/2016 [facility] Hypertensi Problem Active 2016-09-15 M emoria ve 00:18:55 l disorder, Tino systemic Hypertensi arterial ve (disorder) disorder, systemic arterial (disorder) Active Problem 09/15/2016 [facility] Allergies, Adverse Reactions, Alerts Allergy Allergy Status Severity Reaction(s) Onset Inactive Treating Comm ents Source Name Type Date Date Clinician NKFA NKFA Active Lupe Jiménez Family History Family Member Diagnosis Comments Start Date Stop Date Source Natural brother Cancer [facility] Natural brother Diabetes [facility] Natural brother Hypertension [facility] Natural mother Heart disease [facility] Natural sister Hypertension [facility] Social History Social Habit Start Date Stop Date Quantity Comments Source Sex Assigned [facility] Tobacco use and 2017-02-06 2017-02-06 Never used [facility] - exposure 00:00:00 00:00:00 [facility] Alcohol intake 2017-02-06 2017-02-06 [facility]00 non-drinker of Medical Ce nter alcohol (finding) Social History 2014-03-05 2014-03-05 [facility] 17:12:04 17:12:04 Smoking Status Start Date Stop Date Source Former smoker 2017-02-06 00:00:00 2017-02-06 00:00:00 [facility] Medications Ordered Filled Start Stop Current Ordering Indication Dosage Frequency Signature Comments Components Source Medication Medication Date Date Medication? Clinician (SIG) Name Name potassium Yes 20meq QD Take 1 [facility] SA -01 tablet (20 Yuliya kes - (K-DUR,KLOR 00:00: mEq total) Medical -CON) 20 00 by mouth Center MEQ tablet daily. glipiZIDE Yes 10mg Take [address] [facility] (GLUCOTROL) 1-01 tablet (10 Yuliya kes - 10 MG 00:00: mg total) Medical tablet 00 by mouth 2 Center (two) times daily before meals. Diltiazem No 60 mg, Memori a 09-13 Route: PO, l 14:00: Drug form: Tino 00 TAB, Daily, Dosing Weight 116.364, kg, Start date: 09/13/16 9:00:00 CDT, Duration: 30 day, Stop date: 10/12/16 9:00:00 CDT metoprolol No Notes: Memor ia tartrate 09-13 (Same as: l 02:00: Lopressor) Insulin No 60 Memoria regular -05 units) l 19:37: WASTE: F/P [place] - Black; E - Municipal Trash Bin Stable for 28 days at room temperatur e Expires in days from ____Date Acetaminoph Yes 1 tab, PO, Memoria en 300 MG / 09-12 Q4H, PRN l Codeine 18:19: Pain Score Herm leonard Phosphate 00 4-6, 0 30 MG Oral Refill(s) Tablet Dextrose No 25 gm, 50 Niko reynold 50% Syringe 09-12 mL, Route: l 16:50: IVP, Drug Form: INJ, Dosing Weight 116.364, kg, PRN, PRN Blood Glucose Results, Start date: 09/12/16 11:50:00 CDT, Duration: 30 day, Stop date: 10/12/16 11:49:00 CDT Glucagon No 1 mg, Memoria 09-12 Route: IM, l 16:50: Drug form: PDR/INJ, PRN, Dosing Weight 116.364, kg, PRN Blood Glucose Results, Start date: 09/12/16 11:50:00 CDT, Duration: 30 day, Stop date: 10/12/16 11:49:00 CDT valsartan No Notes: Memori a 09-12 Same as l 14:00: Diovan Cefazolin No Notes: Memori a 09-12 (Same As: l 04:00: AncTino bauman Kefzol) MEDICATION WASTE Product Size: 1000 mg Product Wasted: _0_ mg Calcium No Notes: Memoria Gluconate 09-12 WASTE: F/P l 03:33: - Sink; E - Municipal Trash Bin Magnesium No Notes: Memori a Oxide 09-12 (Same as: l 03:33: Mag-Ox 400) Magnesium oxide [id number] g elemental magnesium Dose=____m g magnesium oxide (___mg elemental magnesium) Magnesium No Notes: Memori a Sulfate 8-05 WASTE: F/P l 03:33: - Sink; E [place] - Municipal Trash Bin sodium No 15 mmol, 5 Memor ia phosphate 8-05 mL, Route: l 03:33: IVPB, PRN, 00 Dosing Weight 116.364, kg, PRN Abnormal Lab Result, For NON-ICU Patients Only., Start date: 09/11/16 22:33:00 CDT, Duration: 30 day, Stop date: 10/11/16 22:32:00 CDT Potassium No Notes: Memori a Chloride 8-05 (Same as: l 03:33: KCL) Tino 00 Infuse over 2 hours. potassium No Notes: Memori a phosphate-s 8-05 (Same as: l odium 03:33: Phos-NaK) Tino phosphate 00 Each 1.5 250 mg-280 gm pkt has mg-160 mg 250mg oral powder phosphorou for s. Mix reconstitut w/2.5oz ion water and stir. potassium No Notes: Memori a phosphate 8-05 (Same as: l 03:33: K [place] 00 Phosphate. ) 1 mMol phoshate has 1.47 mEq potassium Infuse over 4 hours Magnesium No Notes: Memori a Sulfate 8-05 WASTE: F/P l 03:22: - Sink; E [place] - Municipal Trash Bin Magnesium No Notes: Memori a Sulfate 8-05 WASTE: F/P l 03:21: - Sink; E - Municipal Trash Bin Potassium No Notes: Memori a Chloride 8-05 (Same as: l 03:21: K-Dur 20) "Do Not Crush" With food and full glass of water Pradaxa No Notes: DO Memor ia 8-05 NOT break, l 02:00: chew or open capsules for administra tion. metoprolol No 25 mg, Memor ia tartrate 8-05 Route: PO, l 02:00: Drug form: TAB, Q12H, Dosing Weight 116.364, kg, [...] 60 l mg oral 22:15: tab, 1 [place] tablet 00 Refill(s) metoprolol No Notes: Memor [...] not exceed l #3 21:59: 4gm/day of Tino 00 acetaminop hen. (Same as: Tylenol with Codeine # 3) dabigatran Yes 150 mg = 1 M emoria etexilate 04 cap, PO, l 150 MG Oral 16:33: Q12H, # Her lea Capsule 00 180 cap, 3 [Pradaxa] Refill(s) Metformin Yes 850 mg, Memor ia 8-04 PO, QAM, 0 l 16:33: Refill(s) Tino 00 valsartan Yes 320 mg = 1 Me moria 320 mg oral 8-04 tab, PO, l tablet 16:33: Daily, # Tino 00 90 tab, 0 Refill(s) Glipizide Yes 10 mg = 1 Mem oria 10 MG Oral 8-04 tab, PO, l Tablet 16:33: BID-Before Odalys [...] 17:05: Cyclogyl) H ermann de 10 MG/ML 00 Ophthalmic Solution [Cyclogyl] Tropicamide No Notes: Niko [...] tab, PO, l tablet 17:21: Daily, 0 [place] 00 Refill(s) glyBURIDE 5 Yes 10 mg = 2 M emoria mg oral 03-05 tab, PO, l tablet 17:21: BID, 0 [place] 00 Refill(s) Aspirin Low Yes PO, Daily, Memoria Dose 81 mg - 0 l oral tablet 17:21: Refill(s) H ermann 00 Hydrochloro Yes 1 tab, PO, Memoria thiazide 50 - Daily, # l MG / 17:21: 30 tab, 0 Tino Triamterene 00 Refill(s) 75 MG Oral Tablet Vital Signs Vital Name Observation Time Observation Value Comments Source Temperature Oral (F) 2016-09-12 20:06:00 97.9 F [facility] [place] Respitory Rate 2016-09-12 19:00:00 Memori al Tino Systolic (mm Hg) 2016-09-12 19:00:00 Niko rial T[place] Diastolic (mm Hg) 2016-09-12 19:00:00 Mem orial [place] Respitory Rate 2016-09-12 18:00:00 Memori al [place] Systolic (mm Hg) 2016-09-12 18:00:00 Niko rial [place] Diastolic (mm Hg) 2016-09-12 18:00:00 Mem orial [place] Respitory Rate 2016-09-12 17:00:00 Memori al [place] Systolic (mm Hg) 2016-09-12 17:00:00 Niko rial [place] Diastolic (mm Hg) 2016-09-12 17:00:00 Mem orial [place] Temperature Oral (F) 2016-09-12 12:51:00 97.9 F [facility] [place] Temperature Oral (F) 2016-09-12 10:38:00 97.6 F [facility] [place] BMI Calculated 2016-09-11 16:02:00 Memori al [place] Weight 2016-09-11 16:02:00 [facility] [place] Height 2016-09-11 16:02:00 182.88 cm [facility] [place] Systolic (mm Hg) 2014-03-06 20:30:00 Niko rial [place] Diastolic (mm Hg) 2014-03-06 20:30:00 Mem orial [place] Respitory Rate 2014-03-06 20:30:00 Memori al [place] Diastolic (mm Hg) 2014-03-06 20:15:00 Mem orial [place] Systolic (mm Hg) 2014-03-06 20:15:00 Niko rial [place] Respitory Rate 2014-03-06 20:15:00 Memori al [place] Diastolic (mm Hg) 2014-03-06 20:02:00 Mem orial [place] Systolic (mm Hg) 2014-03-06 20:02:00 Niko rial [place] Respitory Rate 2014-03-06 20:02:00 Memori al [place] Heart Rate 2014-03-06 17:15:00 [facility] [place] Heart Rate 2014-03-05 17:17:00 [facility] [place] BMI Calculated 2014-03-05 16:24:00 Memori al [place] Weight 2014-03-05 16:24:00 [facility] [place] Height 2014-03-05 16:24:00 180.34 cm [facility] [place] Procedures Procedure Date / Time Performed Performing Clinician [facility] e Arthroplasty of [facility] [place] knee<sup>1</sup> Procedure<sup>2</sup> Memorial H ermann Encounters Start End Encounter Admission Attending Care Care Encounter Source Date/Time Date/Time Type Type Clinicians Facility Department ID 2016-09-11 2016-09-12 Outpatient Jacquelin [facility] [id number] 10:41:00 16:00:00 Eddie 2014-03-06 2014-03-06 Outpatient SG Lee ANTONIA [id number] 10:57:00 15:00:00 Jean Carlos L 00 Results Test Description Test Time Test Comments Results Result Comments Source POCT-GLUCOSE METER 2017-02-08 13:28:00 Test Item Value Reference Range Interpretation Comme nts POC-GLUCOSE METER (2CODE Online) (test 270 mg/dL 70-[address] [facility] [address] [facility] code = 1538) [facility] 7703 0 POCT-GLUCOSE [id number] 08:58:00 Test Item Value Reference Range Interpretation Comments POC-GLUCOSE METER 147 mg/dL 70-[address] [facility] [address] (2CODE Online) (test code = BERTNE R [facility] 1538) [id number] CBC W/PLT COUNT & AUTO [id number] 08:53:00 Test Item Value Reference Range Interpretation [...] 0-1 PERCENT (BEAKER) (test code = 2801) [id number] 08:05:00 Test Item Value Reference Range Interpretation Comments MAGNESIUM (BEAKER) (test code = 1.5 mg/dL 1.6-2.6 L 627) BASIC METABOLIC [id number] 08:05:00 Test Item Value Reference Range Interpretation [...] NOT APPLICABLE FOR DIALYSIS PATIEN TS. POCT-GLUCOSE [id number] 21:57:00 Test Item Value Reference Range Interpretation Comments POC-GLUCOSE METER 219 mg/dL 70-[address] [facility] [address] ([facility]) (test code = [place] 1538) [id number] POCT-GLUCOSE [id number] 17:24:00 Test Item Value Reference Range Interpretation Comments POC-GLUCOSE METER 247 mg/dL 70-[address] [facility] [address] ([facility]) (test code = [place] 1538) [id number] CBC W/PLT COUNT & AUTO [id number] 13:56:00 Test Item Value Reference Range Interpretation [...] (BEAKER) (test code Normal = 762) POCT-GLUCOSE [id number] 13:22:00 Test Item Value Reference Range Interpretation Comments POC-GLUCOSE METER 226 mg/dL 70-110 H TESTED AT [place] [address] (BEAKER) (test code = [facility] 1538) [address] POCT-GLUCOSE [id number] 07:59:00 Test Item Value Reference Range Interpretation Comments POC-GLUCOSE METER 216 mg/dL 70-110 H TESTED AT [place] [address] ([facility]) (test code = [facility] 1538) [address] [id number] 05:18:00 Test Item Value Reference Range Interpretation Comments MAGNESIUM (BEAKER) (test code = 1.7 mg/dL 1.6-2.6 627) BASIC METABOLIC [id number] 05:18:00 Test Item Value Reference Range Interpretation [...] 358) GLUCOSE RANDOM 216 mg/dL 70-105 H ([facility]) (test code = 652) CALCIUM (BEAKER) 8.5 mg/dL 8.4-10.2 (test code = 697) EGFR ([facility]) (test 46 mL/min/1.73 ESTIMA LUCIANO GFR IS code = 1092) sq m NOT ACCURATE CREATININE CLEARANCE IN PREDICTING GLOMERULAR FILTRATION RATE . ESTIMATED GFR I S NOT APPLICABLE FOR DIALYSIS PATIEN TS. POCT-GLUCOSE [id number] 20:58:00 Test Item Value Reference Range Interpretation Comments POC-GLUCOSE METER 260 mg/dL 70-[address] [facility] 67 ([facility]) (test code = [place] 1538) [id number] POCT-GLUCOSE [id number] 17:32:00 Test Item Value Reference Range Interpretation Comments POC-GLUCOSE METER 237 mg/dL 70-110 H TESTED AT [place] [address] ([facility]) (test code = [place] 1538) [id number] POCT-GLUCOSE [id number] 16:21:00 Test Item Value Reference Range Interpretation Comments POC-GLUCOSE METER 223 mg/dL 70-110 H TESTED AT [place] [address] ([facility]) (test code = [place] [facility] 1538) [address] CBC W/PLT COUNT & AUTO [id number] 14:22:00 Test Item Value Reference Range Interpretation Comments WHITE BLOOD CELL COUNT (AKER) 6.5 K/ L 3.5-10.5 (test code = 775) RED BLOOD CELL COUNT (AKER) 4.17 M/ L 4.63-6.08 L (test code [...] (BEAKER) (test code = Normal 762) POCT-GLUCOSE [id number] 11:52:00 Test Item Value Reference Range Interpretation Comments POC-GLUCOSE METER 143 mg/dL 70-[address] [facility] [address] (BEAKER) (test code = [place] 1538) [address] POCT-GLUCOSE [id number] 08:04:00 Test Item Value Reference Range Interpretation Comments POC-GLUCOSE METER 86 mg/dL 70-[address] [facility] [address] (BEAKER) (test code = [place] [facility] [address] 1538) [id number] 06:07:00 Test Item Value Reference Range Interpretation Comments MAGNESIUM (BEAKER) 1.6 mg/dL 1.6-2.6 Specimen slightly (test code = 627) hemolyzed BASIC METABOLIC [id number] 06:07:00 Test Item Value Reference Range Interpretation [...] NOT APPLICABLE FOR DIALYSIS PATIEN TS. POCT-GLUCOSE [id number] 20:42:00 Test Item Value Reference Range Interpretation Comments POC-GLUCOSE METER 338 mg/dL 70-110 H TESTED AT [place] [id number] ([facility]) (test code = [place] [facility] 1538) [address] POCT-GLUCOSE [id number] 17:41:00 Test Item Value Reference Range Interpretation Comments POC-GLUCOSE METER 303 mg/dL 70-110 H TESTED AT [place] [id number] ([facility]) (test code = [facility] Mandi [facility] 1538) [id number] RAD, CHEST, 1 VIEW, NON [id number] 14:44:00Reason for exam:->shortness of breath s/p RHCShould this be performed at the bedside?->YesFINAL REPORT CLINICAL HISTORY: shortness of breath s/p RHC TECHNIQUE: 1 viewof the chest. COMPARISON: 01/31/2017 IMPRESSION: Trace bilateral pleural effusions are again seen with left basilar atelectasis. The cardiomediastinal silhouette is magnified by technique with a pacemaker. Signed: Barbara Pizarro MDReport Verified Date/Time: 02/05/2017 14:44:20 Reading Location: [address] Consult Reading Room CBC W/PLT COUNT & AUTO [id number] 14:37:00 Test Item Value Reference Range Interpretation [...] (BEAKER) (test code = Normal 762) POCT-GLUCOSE [id number] 12:08:00 Test Item Value Reference Range Interpretation Comments POC-GLUCOSE METER 197 mg/dL 70-[address] [facility] [address] (BEAKER) (test code = [place] 1538) [address] POCT-GLUCOSE [id number] 07:55:00 Test Item Value Reference Range Interpretation Comments POC-GLUCOSE METER 149 mg/dL 70-[address] [facility] [address] (BEAKER) (test code = [place] [facility] 1538) [address] [id number] 05:21:00 Test Item Value Reference Range Interpretation Comments MAGNESIUM (BEAKER) (test code = 1.4 mg/dL 1.6-2.6 L 627) BASIC METABOLIC [id number] 05:21:00 Test Item Value Reference Range Interpretation Comments SODIUM (BEAKER) 139 meq/L 136-145 (test code = 381) POTASSIUM (BEAKER) 3.7 meq/L 3.5-5.1 (test code = 379) CHLORIDE (BEAKER) 107 meq/L 98-107 (test code = 382) CO2 (BEAKER) (test 23 meq/L code = 355) BLOOD UREA NITROGEN 24 mg/dL 7-21 H (AKER) (test code = 354) CREATININE (BEAKER) 1.31 mg/dL 0.57-1.25 H (test code = 358) GLUCOSE RANDOM 155 mg/dL 70-105 H (AKER) (test code = 652) CALCIUM (BEAKER) 8.5 mg/dL 8.4-10.2 (test code = 697) EGFR ([facility]) (test 54 mL/min/1.73 ESTIMA LUCIANO GFR IS code = 1092) sq m NOT ACCURATE CREATININE CLEARANCE IN PREDICTING GLOMERULAR FILTRATION RATE . ESTIMATED GFR I S NOT APPLICABLE FOR DIALYSIS PATIEN TS. POCT-GLUCOSE [id number] 21:03:00 Test Item Value Reference Range Interpretation Comments POC-GLUCOSE METER 296 mg/dL 70-110 H TESTED AT [place] [address] ([facility]) (test code = [place] 1538) [id number] POCT-GLUCOSE [id number] 17:18:00 Test Item Value Reference Range Interpretation Comments POC-GLUCOSE METER 275 mg/dL 70-110 H TESTED AT [place] [address] ([facility]) (test code = [facility] Mandi [place] 1538) [address] CBC W/PLT COUNT & AUTO [id number] 15:04:00 Test Item Value Reference Range Interpretation [...] COUNTED (BEAKER) (test code = 1351) POCT-GLUCOSE [id number] 12:17:00 Test Item Value Reference Range Interpretation Comments POC-GLUCOSE METER 208 mg/dL 70-[address] [facility] [address] (BEAKER) (test code = [place] 1538) [address] POCT-GLUCOSE [id number] 08:57:00 Test Item Value Reference Range Interpretation Comments POC-GLUCOSE METER 230 mg/dL 70-[address] [facility] [address] (BEAKER) (test code = [place] 1538) [address] [id number] 05:56:00 Test Item Value Reference Range Interpretation Comments MAGNESIUM (BEAKER) (test code = 1.6 mg/dL 1.6-2.6 627) BASIC METABOLIC [id number] 05:56:00 Test Item Value Reference Range Interpretation [...] NOT APPLICABLE FOR DIALYSIS PATIEN TS. POCT-GLUCOSE [id number] 21:20:00 Test Item Value Reference Range Interpretation Comments POC-GLUCOSE METER 329 mg/dL 70-110 H Notified Mandi Kelley MD/TESTED (BEAKER) (test code = AT [facility] [address] [place] [address]31) [facility] 7703 0 POCT-GLUCOSE [id number] 18:14:00 Test Item Value Reference Range Interpretation Comments POC-GLUCOSE METER 299 mg/dL 70-[address] [facility] [address] ([facility]) (test code = [place] [address]) [address] CBC W/PLT COUNT & AUTO [id number] 15:17:00 Test Item Value Reference Range Interpretation [...] (BEAKER) (test code = Normal 762) POCT-GLUCOSE [id number] 12:54:00 Test Item Value Reference Range Interpretation Comments POC-GLUCOSE METER 173 mg/dL 70-[address] [facility] [address] (BEAKER) (test code = [place] 1538) [address] URINALYSIS W/ REFLEX URINE [id number] 12:06:00 Test Item Value Reference Range Interpretation [...] code = 1584) SOURCE(BEAKER) (test code = 5458) CREATININE, RANDOM [id number] 10:52:00 Test Item Value Reference Range Interpretation Comments CREATININE URINE (BEAKER) (test 127.3 mg/dL code = 375) Reference Range: No NormalsPROTEIN, RANDOM [id number] 10:52:00 Test Item Value Reference Range Interpretation Comments PROTEIN, URINE (BEAKER) (test code = 19 mg/dL 0-14 H 1569) POCT-GLUCOSE [id number] 07:55:00 Test Item Value Reference Range Interpretation Comments POC-GLUCOSE METER 88 mg/dL 70-[address] [facility] [address] (BEAKER) (test code = [facility] Mandi [facility] [address] 1538) [id number] 05:22:00 Test Item Value Reference Range Interpretation Comments MAGNESIUM (BEAKER) (test code = 1.8 mg/dL 1.6-2.6 627) BASIC METABOLIC [id number] 05:22:00 Test Item Value Reference Range Interpretation [...] 0-100 H (test code = 700) POCT-GLUCOSE [id number] 21:36:00 Test Item Value Reference Range Interpretation Comments POC-GLUCOSE METER 230 mg/dL 70-[address] [facility] [address] (BEAKER) (test code = [facility] 1538) [id number] POCT-GLUCOSE [id number] 17:50:00 Test Item Value Reference Range Interpretation Comments POC-GLUCOSE METER 185 mg/dL 70-[address] [facility] 67[address] (BEAKER) (test code = [facility] 1538) [address] POCT-GLUCOSE [id number] 12:49:00 Test Item Value Reference Range Interpretation Comments POC-GLUCOSE METER 168 mg/dL 70-110 H TESTED AT [place] [address] ([facility]) (test code = [place] [facility] 1538) [address] CT, CHEST, WITHOUT [id number] 11:27:00FINAL REPORT Chest CT without contrast Reason [...] MDReport Verified Date/Time: 02/02/2017 11:27:58 Reading Location: [facility] C0X [facility] Consult Reading Room POCT-GLUCOSE [id number] 08:24:00 Test Item Value Reference Range Interpretation Comments POC-GLUCOSE METER 84 mg/dL 70-110 TESTED AT [place] [address] ([facility]) (test code = [place] [address] 1538) [id number] 07:42:00 Test Item Value Reference Range Interpretation Comments MAGNESIUM (BEAKER) (test code = 1.8 mg/dL 1.6-2.6 627) BASIC METABOLIC [id number] 07:42:00 Test Item Value Reference Range Interpretation [...] PATIEN TS. CBC W/PLT COUNT & AUTO [id number] 07:40:00 Test Item Value Reference Range Interpretation [...] PERCENT (BEAKER) (test code = 2801) POCT-GLUCOSE [id number] 21:29:00 Test Item Value Reference Range Interpretation Comments POC-GLUCOSE METER 273 mg/dL 70-110 H TESTED AT [place] [address] ([facility]) (test code = [place] 1538) [id number] POCT-GLUCOSE [id number] 19:21:00 Test Item Value Reference Range Interpretation Comments POC-GLUCOSE METER 286 mg/dL 70-110 H TESTED AT [place] [address] ([facility]) (test code = SHRAVAN Raymond [place] 1538) [id number] POCT-GLUCOSE [id number] 17:33:00 Test Item Value Reference Range Interpretation Comments POC-GLUCOSE METER 263 mg/dL 70-110 H TESTED AT [place] [address] ([facility]) (test code = SHRAVAN Raymond [place] 1538) [id number] POCT-GLUCOSE [id number] 12:25:00 Test Item Value Reference Range Interpretation Comments POC-GLUCOSE METER 196 mg/dL 70-110 H TESTED AT [place] [id number] ([facility]) (test code = SHRAVAN Raymond [place] 1538) [id number] CBC W/PLT COUNT & AUTO [id number] 10:54:00 Test Item Value Reference Range Interpretation [...] (BEAKER) (test code = Normal 762) POCT-GLUCOSE [id number] 08:17:00 Test Item Value Reference Range Interpretation Comments POC-GLUCOSE METER 176 mg/dL 70-[address] [facility] (BEAKER) (test code = SHRAVAN Raymond [place] 1538) [id number] 06:41:00 Test Item Value Reference Range Interpretation Comments MAGNESIUM (BEAKER) (test code = 1.7 mg/dL 1.6-2.6 627) BASIC METABOLIC [id number] 06:41:00 Test Item Value Reference Range Interpretation [...] NOT APPLICABLE FOR DIALYSIS PATIEN TS. POCT-GLUCOSE [id number] 21:33:00 Test Item Value Reference Range Interpretation Comments POC-GLUCOSE METER 295 mg/dL 70-[address] [facility] ([facility]) (test code = SHRAVAN Raymond [place] 1538) [address] POCT-GLUCOSE [id number] 17:47:00 Test Item Value Reference Range Interpretation Comments POC-GLUCOSE METER 277 mg/dL 70-110 H TESTED AT [place] [address] ([facility]) (test code = SHRAVAN Raymond [place] 1538) [address] RAD, CHEST, 2 [id number] 15:44:00Reason for exam:->dyspneaFINAL REPORT HISTORY : dyspnea. [...] the lower thoracic vertebral bodies. Signed: Zuleima Graffeport Verified Date/Time: 01/31/2017 15:44:13 Reading Location: [address] Ortho Consult Reading Room POCT-GLUCOSE [id number] 11:51:00 Test Item Value Reference Range Interpretation Comments POC-GLUCOSE METER 238 mg/dL 70-[address] [facility] ([facility]) (test code = SHRAVAN Raymond [place] 1538) [address] POCT-GLUCOSE [id number] 09:54:00 Test Item Value Reference Range Interpretation Comments POC-GLUCOSE METER 224 mg/dL 70-[address] [facility] ([facility]) (test code = SHRAVAN Raymond [place] 1538) [id number] CBC W/PLT COUNT & AUTO [id number] 05:34:00 Test Item Value Reference Range Interpretation Comments WHITE BLOOD CELL COUNT (BEAKER) 9.4 K/ L 3.5-10.5 (test code = 775) RED BLOOD CELL COUNT (BEAKER) 4.42 M/ L 4.63-6.08 L (test code = 761) HEMOGLOBIN (BEAKER) (test code = 12.1 GM/DL 13.7-17.5 L [...] 0-1 PERCENT (BEAKER) (test code = 2801) [id number] 05:19:00 Test Item Value Reference Range Interpretation Comments MAGNESIUM (BEAKER) (test code = 1.8 mg/dL 1.6-2.6 627) BASIC METABOLIC [id number] 05:19:00 Test Item Value Reference Range Interpretation [...] APPLICABLE FOR DIALYSIS PATIEN TS. STREP PNEUMONIAE [id number] 23:56:00 Test Item Value Reference Range Interpretation [...] the detection limit of the test.LEGIONELLA ANTIGEN, [id number] 23:54:00 Test Item Value Reference Range Interpretation [...] may cau se disease. INFLUENZA A H1N1 [id number] 23:10:00 Test Item Value Reference Range Interpretation Comments INFLUENZA A RNA Not Detected Not Detected, (BEAKER) (test code = Inconclusive 1545) NOVEL H1N1 RNA (BEAKER) Not Detected Not Detected, (test code = 1546) Inconclusive These assays were performed by real-time RT-PCR (alteration inspector-PCR) utilizing fluorogenic hydrolysis probe technology for the detection of human Influenza A viruses and the differential detection of novel H1N1 Influenza virus in respiratory specimens. The test is composed of (1) an RNA extraction from patient specimen, and (2) alteration inspector-PCR amplification and detection with human Influenza A and novel C2E9-lbarhdfu primers and probes. A well-conserved region of [...] characte ristics determined by the [facility] Department, Section of Molecular Pathology. It has not been cleared or approved by the U.S. Food and Drug Administration (FDA). SinceFDA approval is not required for clinical use of the test, validation was done as required by The Clinical Laboratory Amendments of 1988.These assays were performed by real-time RT-PCR (alteration inspector-PCR) utilizing fluorogenic hydrolysis probe technology for the detection of human Influenza A viruses and the differential detection of novel H1N1 Influenza virus in respiratory specimens. The test is composed of (1) an RNA extraction from patient specimen, and (2) alteration inspector-PCR amplification and detection with human Influenza A and novel H6H1-rdwuozwz primers and probes. A well- conserved region [...] performance characteristics determined by the [facility] Department, Section of Molecular Pathology. It has not been cleared or approved by the U.S. Food and Drug Administration (FDA). Since FDA approval is not required for clinical use of the test, valida tion was done as required by The Clinical Laboratory Amendments of 1988.POCT- GLUCOSE [id number] 23:03:00 Test Item Value Reference Range Interpretation Comments POC-GLUCOSE METER 233 mg/dL 70-[address] [facility] ([facility]) (test code = SHRAVAN [place] 1538) [address] U/S, RENAL, [id number] 22:23:00Reason for exam:->akiFINAL REPORT U/S, RENAL, COMPLETE [...] MDReport Verified Date/Time: 01/30/2017 22:23:06 Reading Location: [address] Ortho Consult Reading Room SODIUM, RANDOM [id number] 20:40:00 Test Item Value Reference Range Interpretation Comments SODIUM URINE (BEAKER) (test code = < meq/L 243) Reference Range: No NormalsEOSINOPHIL SMEAR, [id number] 20:40:00 Test Item Value Reference Range Interpretation Comments EOSINOPHIL SMEAR, URINE (BEAKER) No EOS seen No EOS seen (test code = 1851) CREATININE, RANDOM [id number] 20:24:00 Test Item Value Reference Range Interpretation Comments CREATININE URINE (BEAKER) (test 113.2 mg/dL code = 375) Reference Range: No NormalsMICROALBUMIN, RANDOM [id number] 20:24:00 Test Item Value Reference Range Interpretation Comments MICROALBUMIN URINE (BEAKER) (test 4.2 mg/dL code = 1794) Reference Range: No NormalsURINALYSIS W/ [id number] 20:14:00 Test Item Value Reference Range Interpretation [...] 516) SOURCE(BEAKER) (test code = Urine, Voided 6374) POCT-GLUCOSE [id number] 18:25:00 Test Item Value Reference Range Interpretation Comments POC-GLUCOSE METER 230 mg/dL 70-110 H TESTED AT [place] [address] (BEAKER) (test code = SHRAVAN [place] 1538) [address] POCT-GLUCOSE [id number] 13:49:00 Test Item Value Reference Range Interpretation Comments POC-GLUCOSE METER 267 mg/dL 70-[address] [facility] (BEAKER) (test code = SHRAVAN [place] 1538) [address] HEMOGLOBIN [id number] 11:50:00 Test Item Value Reference Range Interpretation Comments HEMOGLOBIN A1C (BEAKER) (test code = 10.7 % 4.3-6.1 H 368) TROPONIN [id number] 11:42:00 Test Item Value Reference Range Interpretation Comments TROPONIN I (ERIK) (test code = 0.02 ng/mL 0.00-0.03 397) [...] acidosis, acute neurological disease, and persistent tachyarrhythmia.POCT-GLUCOSE [id number] 09:41:00 Test Item Value Reference Range Interpretation Comments POC-GLUCOSE METER 228 mg/dL 70-[address] [facility] (ERIK) (test code = SHRAVAN [place] 1538) [address] RAD, CHEST, 1 VIEW, NON [id number] 07:41:00Reason for exam:->eval pneumoniaShould this be performed [...] represent atelectasis or pneumonitis. Signed: Zuleima Graff MDReport Verified Date/Time: 01/30/2017 07:41:41 ReadingLocation: [facility] B1 C013T Transitional Reading Room MAGNESIUM 2017-01-30 02:54:00 Test Item Value Reference Range Interpretation Comments MAGNESIUM (ZHANGAKER) (test code = 1.6 mg/dL 1.6-2.6 627) BASIC METABOLIC [id number] 02:54:00 Test Item Value Reference Range Interpretation [...] FOR DIALYSIS PATIEN TS. RAPID INFLUENZA A&B [id number] 02:41:00 Test Item Value Reference Range Interpretation Comments RAPID INFLUENZA A AG (BEAKER) Negative Negative, Inconclusive (test code = 1622) RAPID INFLUENZA B AG (BEAKER) Negative Negative, Inconclusive (test code = 1623) CBC W/PLT COUNT & AUTO [id number] 02:07:00 Test Item Value Reference Range Interpretation [...] PERCENT (BEAKER) (test code = 2801) POCT-GLUCOSE [id number] 23:18:00 Test Item Value Reference Range Interpretation Comments POC-GLUCOSE METER 230 mg/dL 70-[address] [facility] (BEAKER) (test code = SHRAVAN [place] 1538) [address] CHEM [id number] 10:03:003.1[facility]annCHEM [id number] 10:03:002.6 [facility] MynmxouDTPXWVBAAUYF3288-23-06 10:03:0011.1[facility] HermannELECTROLYTES 2016-09-12 10:03:004.1[facility] IgvnisyQXEXJFZJXZQN7448-54-81 10:03:08111Dmqxfmhk RyxgazlDCTPBQUXPEDT3081-24-80 10:03:0025[facility] FzusxpjOUSAVLYQGJZI1141-43-65 10:03:0074[facility] KafzztnMPAVEHOQYQRR0620-70-41 10:03:0016[facility] APASUKODGGEI0411-14-57 10:03:86070Drmotmmu QgvptnnCCJROLTOQAON2233-66-60 10:03:008.7[facility] GsaepieKPDKMBVPDGDY4840-74-76 10:03:001.00[facility] LIWGSJIGRZOD4357-58-19 10:03:56136Etlgnfza HbgelrdJKCDDIUIXY9599-66-91 10:03:00 Normal (09/12/16 5:03 AM)[facility] FufbhajWVAGHRHPMV7196-04-05 10:03:000.0[facility] DrynsbqCOLPFQYKGR3402-00-87 10:03:000.0[facility] FbtryfbFVFAVFIRFI2577-49-61 10:03:0017.0[facility] XnmjcxuZYECYAGYHY1049-18-88 10:03:00Normal (09/12/16 5:03 AM) [facility] OfezaaaVOKDVJNODW7714-78-07 10:03:001.0[facility] HermannHEMATOLOGY 2016-09-12 10:03:0027.0[facility] IohuvstWCQRHTJLWO4808-45-43 10:03:004.8[facility] UqpmolmELUPPCSDPK8367-85-13 10:03:002.3[facility] AmezhilHTWOKXMQZK0206-54-59 10:03:0055.0[facility] WkbnnwlMTMYSMFYCH1702-57-14 10:03:000.1[facility] YTFOQGXZDC9330-69-63 10:03:001.5[facility] IxyrrmwGBXOVNHCKP6508-38-14 10:03:007.7 [facility] JmifkhiAYXPDYQYOJ0061-98-49 10:03:00 Test Item Value Reference Range Interpretation Comments MCH (test code = MCH) 29.8 pg 27.0-31.0 [facility] ZzdhrxgFPNXXVMFZR5746-37-22 10:03:0088.2[facility] HermannHEMATOLOGY 2016-09-12 10:03:14639Llortpsl JujsxpqTUUQFDAHYS6948-30-43 10:03:0014.7[facility] NbyyomdXCWKMRUVZP5809-70-59 10:03:0033.8[facility] AutvhxtSLYAPEAHYC4917-36-37 10:03:003.97[facility] XpggedkCDNQQZYKHC9587-33-90 10:03:0011.8[facility] STYRBESYAH8335-94-25 10:03:008.7[facility] FrlzrzxDDECTJDECC1138-86-21 10:03:00 35.0[facility] HermannCHEM JHHTM5422-90-52 23:45:0068[facility] HermannCHEM PANEL 2016-09-11 23:45:0013.8[facility] HermannCHEM WMNYE6965-82-56 23:45:009.0[facility] HermannCHEM CGVDR1795-32-77 23:45:0026[facility] HermannCHEM OZFGG6395-89-44 23:45:42869Vldgacmo HermannCHEM BRGST3069-88-43 23:45:003.8[facility] HermannCHEM QHLYU5752-62-46 23:45:79328Xvukxeli HermannCHEM ICUCL4002-71-62 23:45:001.07 [facility]annCHEM TNMCT4732-44-20 23:45:0013[facility] HermannCHEM PANEL 2016-09-11 23:45:46635Dojqhpyi HermannBLOOD BANK WMHTRRU4941-09-28 16:12:00 Negative (09/11/16 11:12 AM)[facility]annCHEM PWJBD9134-30-93 16:12:003.3 [facility]annCHEM APBMZ5304-59-98 16:12:001.6[facility] HermannELECTROLYTES 2016-09-11 16:12:009.7[facility] ExzhxfxXCVHMTMPKMQK2370-11-68 16:12:0069[facility] BvbegseXETWLOERDVGQ8410-32-04 16:12:0028[facility] PkbhwsmMBBLGRSDQBBA7034-66-37 16:12:21707Kumwmsow CcdndtpTUBNKUMSHVOR7870-46-09 16:12:003.7[facility] SLWAHWFUJTOM8230-88-91 16:12:008.9[facility] NyzmjdjNDRSCKCBCCEY8566-79-65 16:12:62304Wibppurl DfqmmdgQHQAPBKYGHGV9863-40-33 16:12:001.06[facility] LKBBDQHXNQTP4286-70-68 16:12:0015[facility] XszrgosWSDLFGQZPLAO0927-92-91 16:12:00 87[facility] OrrgkmxMKABXLHNKD3913-23-18 16:12:0033.1[facility] HermannHEMATOLOGY 2016-09-11 16:12:34907Oiajrcay BdrlawuCHTHSTEIEM7740-43-95 16:12:0011.0[facility] BpdcskaEKYYXAQXDE6749-42-80 16:12:007.5[facility] HtxragxYBGCMOLOVX7768-75-51 16:12:0089.2[facility] ScaykwoCOFIHHLLTA8210-39-85 16:12:00 Test Item Value Reference Range Interpretation Comments MCH (test code = MCH) 29.5 pg 27.0-31.0 [facility] ArbcnxjMGDQTHBYVE6598-04-74 16:12:003.72[facility] HermannHEMATOLOGY 2016-09-11 16:12:0014.7[facility] KwktdaoSAELGYBTWJ0496-12-05 16:12:008.2[facility] MlwnbguQZZPGVCSWH5888-33-62 16:12:0033.1[facility] SwpnyaaCYTSHMIKEF8976-97-80 16:12:00 Test Item Value Reference Range Interpretation Comments PT (test code = PT) 16.6 s 12.0-14.7 [facility] IulnubpHXOQKICHQJ0094-72-68 16:12:001.32[facility] HermannHEMATOLOGY 2016-09-11 16:12:00 Test Item Value Reference Range Interpretation Comments PTT (test code = PTT) 43.0 s 22.9-35.8 [facility] RkjeqmjNLKUWQBKGM5311-34-37 16:12:001.6[facility] HermannHEMATOLOGY 2016-09-11 16:12:000.3[facility] TvkpdsrBXQNBRVOVB8600-19-37 16:12:001.7[facility] YegaaymNARWUORGLZ7037-49-49 16:12:000.5[facility] IaeahhlQUJOVTZRUI3514-80-73 16:12:004.5[facility] BrxuymwXETVNCPRFX7026-73-16 16:12:003.4[facility] KRLMYYNLAN9717-53-58 16:12:0055.3[facility] QrvmpvoVYROSDUDMG7780-40-55 16:12:00 21.2[facility] OzzhvfaTGFTIIMHKK4075-67-85 16:12:0019.6[facility] HermannCHEM PANEL 2014-03-05 16:27:009.4[facility] HermannCHEM YPSOL7409-22-08 16:27:0026[facility] HermannCHEM HGAJP4038-60-66 16:27:0040[facility] HermannCHEM GBDRZ2121-19-36 16:27:0045[facility] HermannCHEM WRYKN0459-63-85 16:27:83265Yflwamam HermannCHEM MSKVR5249-30-92 16:27:004.4[facility] HermannCHEM LVJNN7665-52-60 16:27:46531 [facility] HermannCHEM OCFUX5525-10-78 16:27:001.7[facility] HermannCHEM PANEL 2014-03-05 16:27:23211Fiazktoq HermannCHEM LLKMS7688-64-97 16:27:0011.4[facility] RffsrhhEIQUTZHIAY1043-11-31 16:27:007.3[facility] NxoznigOULFYWGQRP8541-47-34 16:27:0033.9[facility] ObwyealINLFBZZOKT4357-12-64 16:27:88009Udtkznjt Tino WWQXFNXDYC1923-63-30 16:27:0013.7[facility] NgcdwgrVSDLBTAJKQ3509-37-16 16:27:00 14.6[facility] IaoxigfNRJMTOETZF6900-20-80 16:27:0040.4[facility] HermannHEMATOLOGY 2014-03-05 16:27:00 Test Item Value Reference Range Interpretation Comments MCH (test code = MCH) 31.5 pg 27.0-31.0 [facility] QmkqoveVXBCMHZMJY6501-54-15 16:27:0092.8[facility] HermannHEMATOLOGY 2014-03-05 16:27:004.35[facility] QuawideNIRKXTUJAZ8999-22-00 16:27:009.4[facility] TcidtrnLCOVHPWIER1450-19-16 16:27:002.4[facility] BzpcuxaQDWNFKEQZF4822-02-34 16:27:0014.6[facility] RdscqqxTJAGKQWVMK7451-64-75 16:27:005.5[facility] SLGJNJXAJR4996-76-65 16:27:0024.1[facility] CsmqbieUDAADRIRAQ4913-06-67 16:27:00 58.6[facility] NhiahokAEIQFTFNEJ9830-78-18 16:27:000.0[facility] HermannHEMATOLOGY 2014-03-05 16:27:000.2[facility] BulfmamJOXQDBXATQ4821-81-50 16:27:000.3[facility] IqpalrtRGAOTPKLGL5754-74-16 16:27:001.4[facility] KqxqjaxGCSJPQLYOI8796-80-38 16:27:002.3[facility]ino
--- NOTE | 2020-03-16 16:31 | RAD REPORT ---
EXAM DESCRIPTION: RAD - Foot Right 3 View - 03/16/2020 4:01 pm CLINICAL HISTORY: toe injury COMPARISON: No comparisons FINDINGS: No fracture, dislocation or periosteal reaction. No acute or destructive bone or joint pro cess seen. Prominent arterial tree calcifications are present. Small plantar and Achilles spurs are p resent. Mild IP joint degenerative changes are present and there are mild degenerative changes and va lgus angulation at the first MTP joint. No air or foreign body in the soft tissues. IMPRESSION: No fracture or acute finding of the right foot.
[2020-03-16] MEDS ORDERED: HYDROCODONE/APAP 10/325 TAB ONE (16:35)
--- NOTE | 2020-03-16 16:53 | ER ---
Nurse's Notes [facility] Name: Ely Coley Age: 74 yrs Sex: Male : 1945 Arrival Date: 03/16/2020 Time: 14:42 Bed 4 Private MD: Diagnosis: Cellulitis of right toe Presentation: 03/16 15:15 Chief complaint: Patient states: STUBBED R GREAT TOE x4 DAYS AGO. Coronavirus screen: bp At this time, the client does not indicate any symptoms associated with coronavirus-19. Ebola Screen: No symptoms or risks identified at this time. Initial Sepsis Screen: Does the patient meet any 2 criteria? No. Patient's initial sepsis screen is negative. Does the patient have a suspected source of infection? No. Patient's initial sepsis screen is negative. Risk Assessment: Do you want to hurt yourself or someone else? Patient reports no desire to harm self or others. Onset of symptoms is unknown. 15:15 Method Of Arrival: Ambulatory bp 15:15 Acuity: MITCH 3 bp Triage Assessment: 15:15 General: Appears in no apparent distress. uncomfortable, Behavior is calm, cooperative, bp appropriate for age. Pain: Complains of pain in right foot. EENT: No deficits noted. Neuro: No deficits noted. Cardiovascular: No deficits noted. Respiratory: No deficits noted. GI: No signs and/or symptoms were reported involving the gastrointestinal system. : No signs and/or symptoms were reported regarding the genitourinary system. Derm: No deficits noted. Musculoskeletal: No deficits noted. Injury Description: Bruise sustained to right first toe. Historical: - Allergies: 16:05 steroids; bp - Home Meds: 16:05 amiodarone 200 mg Oral tab 1 tab 2 times per day [Active]; glipizide 5 mg Oral tr24 1 bp tab once daily [Active]; spironolactone 25 mg Oral tab 1 tab 2 times per day [Active]; Eliquis 2.5 mg Oral tab 1 tab 2 times per day [Active]; PreserVision AREDS 7,160-113-100 fkvh-qa-hqid Oral tab daily [Active]; Humulin 70/30 subcutaneous Sub-Q [Active]; - PMHx: 16:05 Atrial Fib; CVA; Diabetes - IDDM; Hypertension; Pacemaker; bp - Immunization history:: Adult Immunizations up to date. - Social history:: Smoking status: Patient denies any tobacco usage or history of. Screenin:15 Abuse screen: Denies threats or abuse. Denies injuries from another. Nutritional bp screening: No deficits noted. Tuberculosis screening: No symptoms or risk factors identified. Fall Risk None identified. Assessment: 15:15 General: SEE TRIAGE NOTE. bp 16:29 Reassessment: No changes from previously documented assessment. Patient and/or family bp updated on plan of care and expected duration. Pain level reassessed. Patient is alert, oriented x 3, equal unlabored respirations, skin warm/dry/pink. ALL CURRENT ORDERS COMPLETED. 17:17 Reassessment: PT D/C HOME AMBULATORY, DX WITH TOE CELLULITIS. bp Vital Signs: 15:31 BP 149 / 64; Pulse 76; Resp 18; Temp 98.5; Pulse Ox 100% on R/A; bp 16:28 BP 152 / 65; Pulse 72; Resp 17; Pulse Ox 98% ; bp ED Course: 14:42 Patient arrived in ED. ag5 15:11 Aleksandr Llamas, RN is Primary Nurse. bp 15:12 Meir Chicas PA is PHCP. shanon 15:12 Jerome Morales MD is Attending Physician. [facility] 15:15 Patient has correct armband on for positive identification. Bed in low position. Call bp light in reach. Side rails up X2. 15:57 Foot Right 3 View XRAY In Process Unspecified. EDMS 16:01 Triage completed. bp 16:06 Arm band placed on. bp 17:17 No provider procedures requiring assistance completed. Patient did not have IV access bp during this emergency room visit. Administered Medications: 16:15 Drug: [place] 10 mg-325 mg 1 tabs Route: PO; bp 17:18 Follow up: Response: Pain is decreased bp Outcome: 16:53 Discharge ordered by . shanon 17:17 Discharged to home ambulatory. bp 17:17 Condition: stable 17:17 Discharge instructions given to patient, Instructed on discharge instructions, follow up and referral plans. medication usage, Demonstrated understanding of instructions, follow-up care, medications, Prescriptions given X 3. 17:19 Patient left the ED. bp Signatures: Dispatcher [employer] EDMeir Bell PA PA jmm Peltier, Brian, RN RN bp Jian Ko ag5 Brodie Mcmahan dh4 Corrections: (The following items were deleted from the chart) 17:18 15:31 BP 149 / 64; Pulse 76bpm; Resp 18bpm; Pulse Ox 100% RA; dh4 bp
--- NOTE | 2020-03-16 16:53 | EDPHYS ---
Physician Documentation [facility] Name: Ely Coley Age: 74 yrs Sex: Male : 1945 Arrival Date: 03/16/2020 Time: 14:42 Bed 4 Private MD: ED Physician Jerome Morales HPI: 03/16 15:39 This 74 yrs old Male presents to ER via Ambulatory with complaints of Foot jmm Pain, Toe Injury. 15:39 The patient presents with pain, that is acute, swelling. Onset: The symptoms/episode jmm began/occurred acutely, 4 day(s) ago. Modifying factors: The symptoms are alleviated by nothing. the symptoms are aggravated by movement, weight bearing. Associated signs and symptoms: Pertinent positives: swelling. This is a 74 year old male with a history of cva, dm, htn, that presents of the ED with complaints of right great toe pain beginning after hitting his toe 4 days ago. Denies other injury. . Historical: - Allergies: 16:05 steroids; bp - Home Meds: 16:05 amiodarone 200 mg Oral tab 1 tab 2 times per day [Active]; glipizide 5 mg Oral tr24 1 bp tab once daily [Active]; spironolactone 25 mg Oral tab 1 tab 2 times per day [Active]; Eliquis 2.5 mg Oral tab 1 tab 2 times per day [Active]; PreserVision AREDS 7,160-113-100 vjlr-zy-zusb Oral tab daily [Active]; Humulin 70/30 subcutaneous Sub-Q [Active]; - PMHx: 16:05 Atrial Fib; CVA; Diabetes - IDDM; Hypertension; Pacemaker; bp - Immunization history:: Adult Immunizations up to date. - Social history:: Smoking status: Patient denies any tobacco usage or history of. ROS: 15:39 Constitutional: Negative for fever, chills, and weight loss, Cardiovascular: Negative jmm for chest pain, palpitations, and edema, Respiratory: Negative for shortness of breath, cough, wheezing, and pleuritic chest pain. 15:39 MS/extremity: Positive for erythema, swelling. 15:39 Skin: Positive for erythema, swelling. 15:39 All other systems are negative. Exam: 15:39 Constitutional: This is a well developed, well nourished patient who is awake, alert, jmm and in no acute distress. Head/Face: atraumatic. Eyes: EOMI, no conjunctival erythema appreciated ENT: Moist Mucus Membranes Neck: Trachea midline, Supple Chest/axilla: Normal chest wall appearance and motion. Cardiovascular: Regular rate and rhythm. No edema appreciated Respiratory: Normal respirations, no respiratory distress appreciated Abdomen/GI: Non distended, soft Back: Normal ROM 15:39 Musculoskeletal/extremity: compartments soft, full dorsalis pulse, NVI. 15:39 Skin: swelling, erythema noted to the right great toe, TTP. 15:39 Neuro: Orientation: is normal, Mentation: is normal, Memory: is normal. 15:39 Psych: Behavior/mood is pleasant, cooperative. Vital Signs: 15:31 BP 149 / 64; Pulse 76; Resp 18; Temp 98.5; Pulse Ox 100% on R/A; bp 16:28 BP 152 / 65; Pulse 72; Resp 17; Pulse Ox 98% ; bp MDM: 15:39 Patient medically screened. [facility] 16:50 Data reviewed: vital signs, nurses notes. Counseling: I had a detailed discussion with [facility] the patient and/or guardian regarding: the historical points, exam findings, and any diagnostic results supporting the discharge/admit diagnosis, radiology results, the need for outpatient follow up, to return to the emergency department if symptoms worsen or persist or if there are any questions or concerns that arise at home. ED course: Patient is alert and non toxic in appearance in the ED. No signs of sepsis. Advised to follow up with pcp or return to the ED if symptoms worsen. Patient understood and agrees with the plan of care. . 02 15:39 Order name: Foot Right 3 View XRAY; Complete Time: 16:32 [facility] Administered Medications: 16:15 Drug: [place] 10 mg-325 mg 1 tabs Route: PO; bp 17:18 Follow up: Response: Pain is decreased bp Disposition: 17:52 Co-signature as Attending Physician, Jerome Morales MD. rn Disposition: 03/16/20 16:53 Discharged to Home. Impression: Cellulitis of right toe. - Condition is Stable. - Discharge Instructions: Cellulitis, Adult. - Prescriptions for Clindamycin HCl 300 mg Oral Capsule - take 1 capsule by ORAL route every 6 hours for 10 days; 40 capsule. Ultracet 37.5- 325 mg Oral Tablet - take 1 tablet by ORAL route every 6 hours - for up to 5 days; do not exceed 8 tablets per day.; 20 tablet. Bactrim DS 800- 160 mg Oral Tablet - take 1 tablet by ORAL route every 12 hours for 10 days; 20 tablet. - Medication Reconciliation Form, Thank You Letter, Antibiotic Education, Prescription Opioid Use form. - Follow up: Private Physician; When: 2 - 3 days; Reason: Recheck today's complaints, Continuance of care, Re-evaluation by your physician. Signatures: Dispatcher [employer] EDMS Meir Chicas PA PA jmm Nieto, Roman, MD MD rn Aleksandr Llamas RN RN bp Corrections: (The following items were deleted from the chart) 17:19 16:53 03/16/2020 16:53 Discharged to Home. Impression: Cellulitis of right toe. bp Condition is Stable. Forms are Medication Reconciliation Form, Thank You Letter, Antibiotic Education, Prescription Opioid Use. Follow up: Private Physician; When: 2 - 3 days; Reason: Recheck today's complaints, Continuance of care, Re-evaluation by your physician. shanon
[2020-03-16 17:23] VITALS: TEMP 98.5
[2020-03-16 17:24] VITALS: BP 152/65; O2SAT 98
== END 2020-03-16 17:19 | disposition home or self-care (01) ==
LOC: ER 14:40
DX: L03.031 Cellulitis of right toe (principal); I10 Essential (primary) hypertension; E11.9 Type 2 diabetes mellitus without complications; I48.91 Unspecified atrial fibrillation; Z79.01 Long term (current) use of anticoagulants; Z79.4 Long term (current) use of insulin; Z95.0 Presence of cardiac pacemaker; Z88.8 Allergy status to other drugs, medicaments and biological substances
CPT/HCPCS: 99283

== ENCOUNTER 2020-04-13 16:09 | Emergency (ER) | payer OTHER ==
--- OUTSIDE RECORDS SUMMARY | 2020-04-13 16:14 | XMS REPORT | Continuity of Care Document ---
:1945 Author Organization [facility] t Address [address] [place] [address] Care Team Providers Name Role Phone DANNY Attending Clinician Unavailable Jacquelin Attending Clinician Augusta Lee Attending Clinician DANNY Admitting Clinician Unavailable Jacquelin Admitting Clinician Augusta Lee Admitting Clinician Problems Condition Condition Condition Status Onset Resolution Last Treating Co mments Source Name Details Category Date Date Treatment Clinician Date Diabetes Diabetes Disease [facility] [place] Hypertensi Hypertensi Disease Active 2016-[address] [facility] 04[facility]02 [facility] 00 [place] CHF CHF Disease Active 2016-[address] [facility] [address] (congestiv (congestiv 04-02 Yuliya kes - e heart e heart 00:00: Medical failure) failure) 00 Center Atrial Atrial Disease Active 2016-[address] [facility] fibrillati fibrillati 04-02 Yuliya kes - on on 00:00: Medical 00 [place] Leukocytos Leukocytos Disease Active 2016-[address] is is 04-02 [facility] 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 362.56 Diagnosis Active 2014-06-04 Mem oria EPIRETINAL 02-14 10:13:00 l MEMBRANE 362.56 00:00: Pepe smith LEFT EYE EPIRETINAL 00 MEMBRANE LEFT EYE Active 02/14/2014 [facility] Cerebrovas Problem Resolve 2016-09-15 Memoria cular d 00:18:55 l accident Tino (disorder) Cerebrovas cular accident (disorder) Resolved Problem 09/15/2016 [facility] Dizziness Problem Resolve 2016-09-15 M emoria (finding) d 00:18:55 l [place] Dizziness (finding) Resolved Problem 09/15/2016 [facility] Edema Problem Resolve 2016-09-15 Niko reynold (finding) d 00:18:55 l Edema [place] (finding) Resolved Problem 09/15/2016 [facility] Syncope Problem Resolve 2016-09-15 Mem oria (disorder) d 00:18:55 l Syncope [place] (disorder) Resolved Problem 09/15/2016 [facility] Bradycardi Problem Resolve 2016-09-15 Memoria a d 00:18:55 l (disorder) Pepe smith Bradycardi a (disorder) Resolved Problem 09/15/2016 [facility] Chest pain Problem Resolve 2016-09-15 Memoria (finding) d 00:18:55 l Chest [place] pain (finding) Resolved Problem 09/15/2016 [facility] Allergies, Adverse Reactions, Alerts Allergy Allergy Status Severity Reaction(s) Onset Inactive Treating Comm ents Source Name Type Date Date Clinician NKFA NKFA Active Memoria l [place] Family History Family Member Diagnosis Comments Start Date Stop Date Source Natural brother Cancer [facility] Natural brother Diabetes [facility] Natural brother Hypertension [facility] Natural mother Heart disease [facility] Natural sister Hypertension [facility] Social History Social Habit Start Date Stop Date Quantity Comments Source Sex Assigned At [facility] Alcohol intake 2017-02-06 2017-02-[address] [facility] es - 00:00:00 00:00:00 non-drinker of Medical Ce nter alcohol (finding) Tobacco use and 2017-02-06 2017-02-06 Never used [facility] - exposure 00:00:00 00:00:00 [facility] Social History 2014-03-05 2014-03-05 [facility] 17:12:04 17:12:04 Smoking Status Start Date Stop Date Source Former smoker 2017-02-06 00:00:00 2017-02-06 00:00:00 [facility] Medications Ordered Filled Start Stop Current Ordering Indication Dosage Frequency Signature Comments Components Source Medication Medication Date Date Medication? Clinician (SIG) Name Name potassium Yes 20meq QD Take 1 [facility] chloride SA 02-08 tablet (20 Yuliya kes - (K-DUR,KLOR 00:00: mEq total) Medical -CON) 20 00 by mouth Center MEQ tablet daily. glipiZIDE Yes 10mg Take [address] (GLUCOTROL) 01 tablet (10 Yuliya kes - 10 MG [...] regular -05 units) l 19:37: WASTE: F/P - Black; E - [facility] Stable for 28 days at room temperatur e Expires in days from ____Date Acetaminoph Yes 1 tab, PO, Memoria en 300 MG / 09-12 Q4H, PRN l Codeine 18:19: Pain Score Herm leonard Phosphate 00 4-6, 0 30 MG Oral Refill(s) Tablet Dextrose No 25 gm, 50 Niko reynold 50% Syringe 8- mL, Route: l 16:50: IVP, Drug Form: INJ, Dosing Weight 116.364, kg, PRN, PRN Blood Glucose Results, Start date: 09/12/16 11:50:00 CDT, Duration: 30 day, Stop date: 10/12/16 11:49:00 CDT Glucagon No 1 mg, Memoria 09-12 Route: IM, l 16:50: Drug form: Tino PDR/INJ, PRN, Dosing Weight 116.364, kg, PRN [...] as: l 03:33: Mag-Ox 400) Magnesium oxide 843ex=265h g elemental magnesium Dose=____m g magnesium oxide (___mg elemental magnesium) Magnesium No Notes: Memori a Sulfate 09-12 WASTE: F/P l 03:33: - Sink; E - [facility] Trash [facility] sodium No 15 mmol, 5 Memor ia phosphate 8 mL, Route: l 03:33: IVPB, PRN, Dosing [...] phosphate 8-05 (Same as: l 03:33: K [place] 00 Phosphate. ) 1 mMol phoshate has 1.47 mEq potassium Infuse over 4 hours Magnesium No Notes: Memori a Sulfate 8 WASTE: F/P l 03:22: - Sink; E Tino 00 - [facility] Trash [facility] Magnesium No Notes: Memori a Sulfate 8-05 WASTE: F/P l 03:21: - Sink; E Tino 00 - [facility]ash [facility] Potassium No Notes: Memori a Chloride 8-05 (Same as: l 03:21: K-Dur 20) [place] 00 "Do Not Crush" With food and full glass of water Pradaxa No Notes: DO Memor ia 09-12 NOT break, l 02:00: chew or [place] 00 open capsules for administra tion. metoprolol No 25 mg, Memor ia tartrate 09-12 Route: PO, l 02:00: Drug form: [place] 00 TAB, Q12H, Dosing Weight 116.364, kg, [...] 60 l mg oral 22:15: tab, 1 Tnio tablet 00 Refill(s) metoprolol No Notes: Memor [...] not exceed l #3 21:59: 4gm/day of [place] 00 acetaminop hen. (Same as: Tylenol with Codeine # 3) dabigatran Yes 150 mg = 1 M emoria etexilate 8-04 cap, PO, l 150 MG Oral 16:33: Q12H, # Her lea Capsule 00 180 cap, 3 [Pradaxa] Refill(s) Metformin Yes 850 mg, Memor ia 04 PO, QAM, 0 l 16:33: Refill(s) [place] 00 valsartan Yes 320 mg = 1 Me moria 320 mg oral 804 tab, PO, l tablet 16:33: Daily, # [...] mg = 1 Memoria in 100 MG -26 tab, PO, l Oral Tablet 17:21: Daily, 0 He rmann [Invokana] 00 Refill(s) lisinopril Yes 20 mg = 1 Me moria 20 mg oral -26 tab, PO, l tablet 17:21: Daily, 0 Tino 00 Refill(s) glyBURIDE 5 Yes 10 mg = 2 M emoria mg oral -26 tab, PO, l tablet 17:21: BID, 0 Tino 00 Refill(s) Aspirin Low Yes PO, Daily, Memoria Dose 81 mg 1-26 0 l oral tablet 17:21: Refill(s) H ermann 00 Hydrochloro 2015-0 Yes 1 tab, PO, Memoria thiazide 50 1-26 Daily, # l MG / 17:21: 30 tab, 0 Tino Triamterene 00 Refill(s) 75 MG Oral Tablet Vital Signs Vital Name Observation Time Observation Value Comments Source Temperature Oral (F) 2016-09-12 20:06:00 97.9 F [facility] [place] Respitory Rate 2016-09-12 19:00:00 Memori al [place] Systolic (mm Hg) 2016-09-12 19:00:00 Niko rial [place] Diastolic (mm Hg) 2016-09-12 19:00:00 Mem orial [place] Respitory Rate 2016-09-12 18:00:00 Memori al [place] Systolic (mm Hg) 2016-09-12 18:00:00 Niko rial [place] Diastolic (mm Hg) 2016-09-12 18:00:00 Mem orial [place] Respitory Rate 2016-09-12 17:00:00 Memori al [place] Systolic (mm Hg) 2016-09-12 17:00:00 Niko rial [place] Diastolic (mm Hg) 2016-09-12 17:00:00 Mem orial [place] Temperature Oral (F) 2016-09-12 12:51:00 97.9 F [facility] [place] Temperature Oral (F) 2016-09-12 10:38:00 97.6 F [facility] [place] BMI Calculated 2016-09-11 16:02:00 Memori al [place] Weight 2016-09-11 16:02:00 [facility] [place] Height 2016-09-11 16:02:00 182.88 cm [facility] [place] Systolic (mm Hg) 2014-03-06 20:30:00 Niko rial [place] Diastolic (mm Hg) 2014-03-06 20:30:00 Mem orial [place] Respitory Rate 2014-03-06 20:30:00 Memori al [place] Diastolic (mm Hg) 2014-03-06 20:15:00 Mem orial [place] Systolic (mm Hg) 2014-03-06 20:15:00 Niko rial [place] Respitory Rate 2014-03-06 20:15:00 Memori al [place] Diastolic (mm Hg) 2014-03-06 20:02:00 Mem di [place] Systolic (mm Hg) 2014-03-06 20:02:00 Niko rosenthal [place] Respitory Rate 2014-03-06 20:02:00 John ferris [place] Heart Rate 2014-03-06 17:15:00 [facility] [place] Heart Rate 2014-03-05 17:17:00 [facility] [place] BMI Calculated 2014-03-05 16:24:00 John al [place] Weight 2014-03-05 16:24:00 [facility] [place] Height 2014-03-05 16:24:00 [address] [facility] [place] Procedures Procedure Date / Time Performed Performing Clinician [facility] wood Arthroplasty of [facility] [place] knee<sup>1</sup> Procedure<sup>2</sup> [facility] H ermann Encounters Start End Encounter Admission Attending Care Care Encounter Source Date/Time Date/Time Type Type Clinicians Facility Department ID 2016-09-11 2016-09-12 Outpatient Jacquelin, [facility] [id number] 10:41:00 16:00:00 Eddie 2014-03-06 2014-03-06 Outpatient Rosa, [facility] [id number] 575 10:57:00 15:00:00 Jean Carlos L 00 Results Test Description Test Time Test Comments Results Result Comments Source POCT-GLUCOSE METER 2017-02-08 13:28:00 Test Item Value Reference Range Interpretation Comme nts POC-GLUCOSE METER (BEAKER) (test 270 mg/dL 70-[address] [facility] [address] code = 1538) [facility] 7703 0 POCT-GLUCOSE [id number] 08:58:00 Test Item Value Reference Range Interpretation Comments POC-GLUCOSE METER 147 mg/dL 70-[address] [facility] [address] (BEAKER) (test code = BERTNE R [facility] 1538) [id number] CBC W/PLT COUNT & AUTO [id number] 08:53:00 Test Item Value Reference Range Interpretation [...] 0-1 PERCENT (BEAKER) (test code = 2801) [id number] 08:05:00 Test Item Value Reference Range Interpretation Comments MAGNESIUM (BEAKER) (test code = 1.5 mg/dL 1.6-2.6 L 627) BASIC METABOLIC [id number] 08:05:00 Test Item Value Reference Range Interpretation [...] NOT APPLICABLE FOR DIALYSIS PATIEN TS. POCT-GLUCOSE [id number] 21:57:00 Test Item Value Reference Range Interpretation Comments POC-GLUCOSE METER 219 mg/dL 70-[address] [facility] 67 ([facility]) (test code = [place] 1538) [id number] POCT-GLUCOSE [id number] 17:24:00 Test Item Value Reference Range Interpretation Comments POC-GLUCOSE METER 247 mg/dL 70-110 H TESTED AT [place] [address] ([facility]) (test code = [place] 1538) [address] CBC W/PLT COUNT & AUTO [id number] 13:56:00 Test Item Value Reference Range Interpretation [...] (BEAKER) (test code Normal = 762) POCT-GLUCOSE [id number] 13:22:00 Test Item Value Reference Range Interpretation Comments POC-GLUCOSE METER 226 mg/dL 70-110 H [facility] AT [place] [address] [facility] (test code = [place] [facility] 1538) [address] POCT-GLUCOSE [id number] 07:59:00 Test Item Value Reference Range Interpretation Comments POC-GLUCOSE METER 216 mg/dL 70-110 H TESTED AT [place] [address] ([facility]) (test code = [place] [facility] 1538) [address] [id number] 05:18:00 Test Item Value Reference Range Interpretation Comments MAGNESIUM (BEAKER) (test code = 1.7 mg/dL 1.6-2.6 627) BASIC METABOLIC [id number] 05:18:00 Test Item Value Reference Range Interpretation [...] NOT APPLICABLE FOR DIALYSIS PATIEN TS. POCT-GLUCOSE [id number] 20:58:00 Test Item Value Reference Range Interpretation Comments POC-GLUCOSE METER 260 mg/dL 70-[address] [facility] 67 ([facility]) (test code = [facility] [place] 1538) [id number] POCT-GLUCOSE [id number] 17:32:00 Test Item Value Reference Range Interpretation Comments POC-GLUCOSE METER 237 mg/dL 70-110 H TESTED AT [place] [address] ([facility]) (test code = [facility] [place] 1538) [address] POCT-GLUCOSE [id number] 16:21:00 Test Item Value Reference Range Interpretation Comments POC-GLUCOSE METER 223 mg/dL 70-110 H TESTED AT [place] [address] ([facility]) (test code = [facility] 1538) [id number] CBC W/PLT COUNT & AUTO [id number] 14:22:00 Test Item Value Reference Range Interpretation [...] (BEAKER) (test code = Normal 762) POCT-GLUCOSE [id number] 11:52:00 Test Item Value Reference Range Interpretation Comments POC-GLUCOSE METER 143 mg/dL 70-[address] [facility] 67 (BEAKER) (test code = [facility] 1538) [address] POCT-GLUCOSE [id number] 08:04:00 Test Item Value Reference Range Interpretation Comments POC-GLUCOSE METER 86 mg/dL 70-[address] [facility] 6720 (BEAKER) (test code = [facility] [address] 1538) [id number] 06:07:00 Test Item Value Reference Range Interpretation Comments MAGNESIUM (BEAKER) 1.6 mg/dL 1.6-2.6 Specimen slightly (test code = 627) hemolyzed BASIC METABOLIC [id number] 06:07:00 Test Item Value Reference Range Interpretation [...] NOT APPLICABLE FOR DIALYSIS PATIEN TS. POCT-GLUCOSE [id number] 20:42:00 Test Item Value Reference Range Interpretation Comments POC-GLUCOSE METER 338 mg/dL 70-[address] [facility] 6720 ([facility]) (test code = [place] [facility] 1538) [address] POCT-GLUCOSE [id number] 17:41:00 Test Item Value Reference Range Interpretation Comments POC-GLUCOSE METER 303 mg/dL 70-110 H TESTED AT [place] [id number] ([facility]) (test code = [place] [facility] 1538) [address] RAD, CHEST, 1 VIEW, NON [id number] 14:44:00Reason for exam:->shortness of breath s/p RHCShould this be performed at the bedside?->YesFINAL REPORT CLINICAL HISTORY: shortness of breath s/p RHC TECHNIQUE: 1 viewof the chest. COMPARISON: 01/31/2017 IMPRESSION: Trace bilateral pleural effusions are again seen with left basilar atelectasis. The cardiomediastinal silhouette is magnified by technique with a pacemaker. Signed: Barbara Pizarro MDReport Verified Date/Time: 02/05/2017 14:44:20 Reading Location: [facility] C013W Consult Reading Room CBC W/PLT COUNT & AUTO [id number] 14:37:00 Test Item Value Reference Range Interpretation [...] (BEAKER) (test code = Normal 762) POCT-GLUCOSE [id number] 12:08:00 Test Item Value Reference Range Interpretation Comments POC-GLUCOSE METER 197 mg/dL 70-[address] [facility] 67[address] (BEAKER) (test code = [place] 1538) [id number] POCT-GLUCOSE [id number] 07:55:00 Test Item Value Reference Range Interpretation Comments POC-GLUCOSE METER 149 mg/dL 70-[address] [facility] 67[address] (BEAKER) (test code = [place] 1538) [address] [id number] 05:21:00 Test Item Value Reference Range Interpretation Comments MAGNESIUM (BEAKER) (test code = 1.4 mg/dL 1.6-2.6 L 627) BASIC METABOLIC [id number] 05:21:00 Test Item Value Reference Range Interpretation Comments SODIUM (BEAKER) 139 meq/L 136-145 (test code = 381) POTASSIUM (BEAKER) 3.7 meq/L 3.5-5.1 (test code = 379) CHLORIDE (BEAKER) 107 meq/L 98-107 (test code = 382) CO2 (BEAKER) (test 23 meq/L -29 code = 355) BLOOD UREA NITROGEN 24 [...] NOT APPLICABLE FOR DIALYSIS PATIEN TS. POCT-GLUCOSE [id number] 21:03:00 Test Item Value Reference Range Interpretation Comments POC-GLUCOSE METER 296 mg/dL 70-[address] [facility] 67[address] [facility] (test code = [place] 1538) [address] POCT-GLUCOSE [id number] 17:18:00 Test Item Value Reference Range Interpretation Comments POC-GLUCOSE METER 275 mg/dL 70-[address] [facility] 6720 ([facility]) (test code = [place] 1538) [address] CBC W/PLT COUNT & AUTO [id number] 15:04:00 Test Item Value Reference Range Interpretation [...] COUNTED (BEAKER) (test code = 1351) POCT-GLUCOSE [id number] 12:17:00 Test Item Value Reference Range Interpretation Comments POC-GLUCOSE METER 208 mg/dL 70-[address] [facility] 67[address] (BEAKER) (test code = [place] 1538) [address] POCT-GLUCOSE [id number] 08:57:00 Test Item Value Reference Range Interpretation Comments POC-GLUCOSE METER 230 mg/dL 70-[address] [facility] 67[address] (BEAKER) (test code = [place] 1538) [address] [id number] 05:56:00 Test Item Value Reference Range Interpretation Comments MAGNESIUM (BEAKER) (test code = 1.6 mg/dL 1.6-2.6 627) BASIC METABOLIC [id number] 05:56:00 Test Item Value Reference Range Interpretation [...] NOT APPLICABLE FOR DIALYSIS PATIEN TS. POCT-GLUCOSE [id number] 21:20:00 Test Item Value Reference Range Interpretation Comments POC-GLUCOSE METER 329 mg/dL 70-110 H Notified R Warren WATTS/TESTED (BEAKER) (test code = AT [facility] [address] [place] [address]) [facility] 7703 0 POCT-GLUCOSE [id number] 18:14:00 Test Item Value Reference Range Interpretation Comments POC-GLUCOSE METER 299 mg/dL 70-[address] [facility] 67 ([facility]) (test code = [place] [address]) [address] CBC W/PLT COUNT & AUTO [id number] 15:17:00 Test Item Value Reference Range Interpretation [...] (BEAKER) (test code = Normal 762) POCT-GLUCOSE [id number] 12:54:00 Test Item Value Reference Range Interpretation Comments POC-GLUCOSE METER 173 mg/dL 70-[address] [facility] 67[address] (BEAKER) (test code = [place] 1538) [address] URINALYSIS W/ REFLEX URINE [id number] 12:06:00 Test Item Value Reference Range Interpretation [...] code = 1584) SOURCE(BEAKER) (test code = 1860) CREATININE, RANDOM [id number] 10:52:00 Test Item Value Reference Range Interpretation Comments CREATININE URINE (BEAKER) (test 127.3 mg/dL code = 375) Reference Range: No NormalsPROTEIN, RANDOM [id number] 10:52:00 Test Item Value Reference Range Interpretation Comments PROTEIN, URINE (BEAKER) (test code = 19 mg/dL 0-14 H 1569) POCT-GLUCOSE [id number] 07:55:00 Test Item Value Reference Range Interpretation Comments POC-GLUCOSE METER 88 mg/dL 70-[address] [facility] 6720 (BEAKER) (test code = [place] [address] 1538) [id number] 05:22:00 Test Item Value Reference Range Interpretation Comments MAGNESIUM (BEAKER) (test code = 1.8 mg/dL 1.6-2.6 627) BASIC METABOLIC [id number] 05:22:00 Test Item Value Reference Range Interpretation [...] 0-100 H (test code = 700) POCT-GLUCOSE [id number] 21:36:00 Test Item Value Reference Range Interpretation Comments POC-GLUCOSE METER 230 mg/dL 70-110 H TESTED AT [place] [address] ([facility]) (test code = [place] 1538) [address] POCT-GLUCOSE [id number] 17:50:00 Test Item Value Reference Range Interpretation Comments POC-GLUCOSE METER 185 mg/dL 70-110 H TESTED AT [place] [address] ([facility]) (test code = [place] 1538) [address] POCT-GLUCOSE [id number] 12:49:00 Test Item Value Reference Range Interpretation Comments POC-GLUCOSE METER 168 mg/dL 70-110 H TESTED AT [place] [address] ([facility]) (test code = [place] 1538) [address] CT, CHEST, WITHOUT [id number] 11:27:00FINAL REPORT Chest CT without contrast Reason [...] MDReport Verified Date/Time: 02/02/2017 11:27:58 Reading Location: [address] Consult Reading Room POCT-GLUCOSE [id number] 08:24:00 Test Item Value Reference Range Interpretation Comments POC-GLUCOSE METER 84 mg/dL 70-[address] [facility] 6720 ([facility]) (test code = [place] [address] 1538) [id number] 07:42:00 Test Item Value Reference Range Interpretation Comments MAGNESIUM (ERIK) (test code = 1.8 mg/dL 1.6-2.6 627) BASIC METABOLIC [id number] 07:42:00 Test Item Value Reference Range Interpretation [...] PATIEN TS. CBC W/PLT COUNT & AUTO [id number] 07:40:00 Test Item Value Reference Range Interpretation [...] PERCENT (BEAKER) (test code = 2801) POCT-GLUCOSE [id number] 21:29:00 Test Item Value Reference Range Interpretation Comments POC-GLUCOSE METER 273 mg/dL 70-110 H TESTED AT [place] [address] ([facility]) (test code = [place] [facility] 1538) [address] POCT-GLUCOSE [id number] 19:21:00 Test Item Value Reference Range Interpretation Comments POC-GLUCOSE METER 286 mg/dL 70-110 H TESTED AT [place] [address] ([facility]) (test code = [place] 1538) [address] POCT-GLUCOSE [id number] 17:33:00 Test Item Value Reference Range Interpretation Comments POC-GLUCOSE METER 263 mg/dL 70-110 H TESTED AT [place] [address] ([facility]) (test code = [place] [facility] 1538) [address] POCT-GLUCOSE [id number] 12:25:00 Test Item Value Reference Range Interpretation Comments POC-GLUCOSE METER 196 mg/dL 70-110 H TESTED AT [place] [address] (BEAKER) (test code = [place] 1538) [address] CBC W/PLT COUNT & AUTO [id number] 10:54:00 Test Item Value Reference Range Interpretation [...] (BEAKER) (test code = Normal 762) POCT-GLUCOSE [id number] 08:17:00 Test Item Value Reference Range Interpretation Comments POC-GLUCOSE METER 176 mg/dL 70-[address] [facility] 6720 (BEAKER) (test code = [place] 1538) [address] [id number] 06:41:00 Test Item Value Reference Range Interpretation Comments MAGNESIUM (BEAKER) (test code = 1.7 mg/dL 1.6-2.6 627) BASIC METABOLIC [id number] 06:41:00 Test Item Value Reference Range Interpretation [...] NOT APPLICABLE FOR DIALYSIS PATIEN TS. POCT-GLUCOSE [id number] 21:33:00 Test Item Value Reference Range Interpretation Comments POC-GLUCOSE METER 295 mg/dL 70-110 H TESTED AT [place] [address] ([facility]) (test code = [place] 1538) [address] POCT-GLUCOSE [id number] 17:47:00 Test Item Value Reference Range Interpretation Comments POC-GLUCOSE METER 277 mg/dL 70-110 H TESTED AT [place] [address] ([facility]) (test code = [place] 1538) [address] RAD, CHEST, 2 [id number] 15:44:00Reason for exam:->dyspneaFINAL REPORT HISTORY : dyspnea. [...] Graff Verified Date/Time: 01/31/2017 15:44:13 Reading Location: [address] Ortho Consult Reading Room POCT-GLUCOSE [id number] 11:51:00 Test Item Value Reference Range Interpretation Comments POC-GLUCOSE METER 238 mg/dL 70-110 H TESTED AT [place] [address] ([facility]) (test code = [place] 1538) [address] POCT-GLUCOSE [id number] 09:54:00 Test Item Value Reference Range Interpretation Comments POC-GLUCOSE METER 224 mg/dL 70-110 H TESTED AT [place] [address] ([facility]) (test code = [place] 1538) [address] CBC W/PLT COUNT & AUTO [id number] 05:34:00 Test Item Value Reference Range Interpretation Comments WHITE BLOOD CELL COUNT ([facility]) 9.4 K/ L 3.5-10.5 (test code = 775) RED BLOOD CELL COUNT ([facility]) 4.42 M/ L 4.63-6.08 L (test code [...] 0-1 PERCENT (BEAKER) (test code = 2801) [id number] 05:19:00 Test Item Value Reference Range Interpretation Comments MAGNESIUM (BEAKER) (test code = 1.8 mg/dL 1.6-2.6 627) BASIC METABOLIC [id number] 05:19:00 Test Item Value Reference Range Interpretation [...] APPLICABLE FOR DIALYSIS PATIEN TS. STREP PNEUMONIAE [id number] 23:56:00 Test Item Value Reference Range Interpretation [...] the detection limit of the test.LEGIONELLA ANTIGEN, [id number] 23:54:00 Test Item Value Reference Range Interpretation [...] may cau se disease. INFLUENZA A H1N1 [id number] 23:10:00 Test Item Value Reference Range Interpretation Comments INFLUENZA A RNA Not Detected Not Detected, (BEAKER) (test code = Inconclusive 1545) NOVEL H1N1 RNA (BEAKER) Not Detected Not Detected, (test code = 1546) Inconclusive These assays were performed by real-time RT-PCR (outer diameter technician-PCR) utilizing fluorogenic hydrolysis probe technology for the detection of human Influenza A viruses and the differential detection of novel H1N1 Influenza virus in respiratory specimens. The test is composed of (1) an RNA extraction from patient specimen, and (2) outer diameter technician-PCR amplification and detection with human Influenza A and novel P8Y0-mbsefcmo primers and probes. A well-conserved region of [...] its performance characte ristics determined by the [facility] Pathology Department, Section of Molecular Pathology. It has not been cleared or approved by the U.S. Food and Drug Administration (FDA). SinceFDA approval is not required for clinical use of the test, validation was done as required by The Clinical Laboratory Amendments of 1988.These assays were performed by real-time RT-PCR (outer diameter technician-PCR) utilizing fluorogenic hydrolysis probe technology for the detection of human Influenza A viruses and the differential detection of novel H1N1 Influenza virus in respiratory specimens. The test is composed of (1) an RNA extraction from patient specimen, and (2) outer diameter technician-PCR amplification and detection with human Influenza A and novel F2O3-cypjolpz primers and probes. A well- conserved region [...] and its performance characteristics determined by the [facility] Pathology Department, Section of Molecular Pathology. It has not been cleared or approved by the U.S. Food and Drug Administration (FDA). Since FDA approval is not required for clinical use of the test, valida tion was done as required by The Clinical Laboratory Amendments of 1988.POCT- GLUCOSE [id number] 23:03:00 Test Item Value Reference Range Interpretation Comments POC-GLUCOSE METER 233 mg/dL 70-[address] [facility] 6720 (BEAKER) (test code = [place] 1538) [address] U/S, RENAL, [id number] 22:23:00Reason for exam:->akiFINAL REPORT U/S, RENAL, COMPLETE [...] MDReport Verified Date/Time: 01/30/2017 22:23:06 Reading Location: [facility] C013X Ortho Consult Reading Room SODIUM, RANDOM [id number] 20:40:00 Test Item Value Reference Range Interpretation Comments SODIUM URINE (BEAKER) (test code = < meq/L 243) Reference Range: No NormalsEOSINOPHIL SMEAR, [id number] 20:40:00 Test Item Value Reference Range Interpretation Comments EOSINOPHIL SMEAR, URINE (BEAKER) No EOS seen No EOS seen (test code = 1851) CREATININE, RANDOM [id number] 20:24:00 Test Item Value Reference Range Interpretation Comments CREATININE URINE (BEAKER) (test 113.2 mg/dL code = 375) Reference Range: No NormalsMICROALBUMIN, RANDOM [id number] 20:24:00 Test Item Value Reference Range Interpretation Comments MICROALBUMIN URINE (BEAKER) (test 4.2 mg/dL code = 1794) Reference Range: No NormalsURINALYSIS W/ [id number] 20:14:00 Test Item Value Reference Range Interpretation [...] 516) SOURCE(BEAKER) (test code = Urine, Voided 6453) POCT-GLUCOSE [id number] 18:25:00 Test Item Value Reference Range Interpretation Comments POC-GLUCOSE METER 230 mg/dL 70-[address] [facility] 67 (BEAKER) (test code = [facility] 1538) [address] POCT-GLUCOSE [id number] 13:49:00 Test Item Value Reference Range Interpretation Comments POC-GLUCOSE METER 267 mg/dL 70-[address] [facility] 6720 (BEAKER) (test code = [facility] 1538) [address] HEMOGLOBIN [id number] 11:50:00 Test Item Value Reference Range Interpretation Comments HEMOGLOBIN A1C (BEAKER) (test code = 10.7 % 4.3-6.1 H 368) TROPONIN [id number] 11:42:00 Test Item Value Reference Range Interpretation [...] acidosis, acute neurological disease, and persistent tachyarrhythmia.POCT-GLUCOSE [id number] 09:41:00 Test Item Value Reference Range Interpretation Comments POC-GLUCOSE METER 228 mg/dL 70-[address] [facility] 6720 (BEAKER) (test code = [place] 1538) [address] RAD, CHEST, 1 VIEW, NON [id number] 07:41:00Reason for exam:->eval pneumoniaShould this be performed [...] represent atelectasis or pneumonitis. Signed: Zuleima Graff [facility] Verified Date/Time: 01/30/2017 07:41:41 ReadingLocation: [facility] B1 C013T Transitional Reading Room MAGNESIUM 2017-01-30 02:54:00 Test Item Value Reference Range Interpretation Comments MAGNESIUM (BEAKER) (test code = 1.6 mg/dL 1.6-2.6 627) BASIC METABOLIC [id number] 02:54:00 Test Item Value Reference Range Interpretation [...] FOR DIALYSIS PATIEN TS. RAPID INFLUENZA A&B [id number] 02:41:00 Test Item Value Reference Range Interpretation Comments RAPID INFLUENZA A AG (BEAKER) Negative Negative, Inconclusive (test code = 1622) RAPID INFLUENZA B AG (BEAKER) Negative Negative, Inconclusive (test code = 1623) CBC W/PLT COUNT & AUTO [id number] 02:07:00 Test Item Value Reference Range Interpretation [...] PERCENT (BEAKER) (test code = 2801) POCT-GLUCOSE [id number] 23:18:00 Test Item Value Reference Range Interpretation Comments POC-GLUCOSE METER 230 mg/dL 70-[address] [facility] 6720 (BEAKER) (test code = SHRAVAN [place] 1538) [address] CHEM [id number] 10:03:003.1[facility]ann[facility]M BWNFW7003-37-13 10:03:002.6 [facility] RizpimgGSUCLIJBMVHR6615-17-04 10:03:0011.1[facility] HermannELECTROLYTES 2016-09-12 10:03:004.1[facility] DbpvnsmHLMBFUDAWWJS0510-65-52 10:03:29291Lmtqvybt EttapxdNIIRSCVJIPFN3808-24-12 10:03:0025[facility] DmmgnbmMGTSVPAINKSA5919-59-86 10:03:0074[facility] UafuwgzVVNFSQQDGLQM2051-44-43 10:03:0016[facility] [place] OWWXGOQKRXIH0408-01-70 10:03:14416Dlsbcffn UdzhbdoNDDNXLQMZPEE2384-44-29 10:03:008.7[facility] HsskffpAIUIZAQEWXWI9291-46-16 10:03:001.00[facility] XQPVKSUQNCEM5873-38-54 10:03:33715Snugnodj YpflyxxWDHGPDYKCN0003-26-20 10:03:00 Normal (09/12/16 5:03 AM)[facility] DvjeffpLMLHOECJXC2127-44-12 10:03:000.0[facility] InchcdgQBUPJXOASL4792-10-99 10:03:000.0[facility] PxqrxtxABVVAROQWN0286-40-58 10:03:0017.0[facility] FofklajFEGUDPQTPT8026-92-34 10:03:00Normal (09/12/16 5:03 AM) [facility] EjrvujiJUYKDSLNFC1858-64-91 10:03:001.0[facility] HermannHEMATOLOGY 2016-09-12 10:03:0027.0[facility] RaktkgkEEVLNWWSDC4981-38-78 10:03:004.8[facility] ScvoxmiKUOPEDNCKG6896-41-06 10:03:002.3[facility] GsgvxzoQECSLPNUMT0152-98-37 10:03:0055.0[facility] NypsnvrGILRSAXNFM2914-62-72 10:03:000.1[facility] EVSEMYXAIJ7629-28-80 10:03:001.5[facility] SbxnpryOGBODYPMKS4901-34-20 10:03:007.7 [facility] MwihhttSKSUFYSQKY9427-01-60 10:03:00 Test Item Value Reference Range Interpretation Comments MCH (test code = MCH) 29.8 pg 27.0-31.0 [facility] XyzxvwvQSOYBXLGFV0931-44-91 10:03:0088.2[facility] HermannHEMATOLOGY 2016-09-12 10:03:72174Jykbcvir WgfdmrcBFDGOUSZRV5049-83-18 10:03:0014.7[facility] MeczpiqSHNEYMFLRJ3458-90-73 10:03:0033.8[facility] JwxxkajKSJZHUSUQY8214-26-15 10:03:003.97[facility] PhxzhvxIQRAXLLCYW8926-41-13 10:03:0011.8[facility] [place] GGIDKCNYWS2448-63-01 10:03:008.7[facility] NvezpjqLASCOXKFMF8443-75-55 10:03:00 35.0[facility] HermannCHEM SCIIR5186-93-79 23:45:87380Rfweawjd HermannCHEM PANEL 2016-09-11 23:45:003.8[facility] HermannCHEM PUWQM4829-40-06 23:45:32971Ksrexxal HermannCHEM GSCGH9016-83-49 23:45:001.07[facility] HermannCHEM EKSGK4255-75-85 23:45:0013[facility] HermannCHEM MXWFS0790-87-22 23:45:14439Mvqitsyo HermannCHEM TUEWC2877-24-95 23:45:0068[facility]annCHEM IDQKC6736-20-31 23:45:0013.8 [facility]annCHEM IDBOI7611-17-04 23:45:009.0[facility] HermannCHEM PANEL 2016-09-11 23:45:0026[facility] HermannBLOOD BANK CHLHRNY1706-24-22 16:12:00 Negative (09/11/16 11:12 AM)[facility]annCHEM IRPLT2231-20-68 16:12:003.3 [facility]annCHEM TNEIF1983-67-71 16:12:001.6[facility] HermannELECTROLYTES 2016-09-11 16:12:009.7[facility] JmwdyabFAHTGBMOOFVC6345-71-90 16:12:0069[facility] FkouzrcERXTHZUVZGXY3835-02-02 16:12:0028[facility] ThooxkoGUKIHZACSIJT1577-79-11 16:12:41577Xtlabsdu UqqfkqnEEATDWHWDJMR5641-66-52 16:12:003.7[facility] FXKAMVEMRKTB3767-50-24 16:12:008.9[facility] UemzjrqDPXKMRFOHINY4000-15-33 16:12:48919Nwfbmdls MhuwetcANOKDMZJBGPP7778-66-92 16:12:001.06[facility] [place] NCBCGTMYFYPG7123-45-02 16:12:0015[facility] ZzldjtfYYNLEAGAZFIS6217-55-88 16:12:00 87[facility] XbikdhpHXRTVPXJZI0369-17-70 16:12:0033.1[facility] HermannHEMATOLOGY 2016-09-11 16:12:53367Owfoziln ZtipuwqPIPRCMPKMD7427-81-39 16:12:0011.0[facility] QcgefslKRQZXMUADE1696-59-05 16:12:007.5[facility] DlknsudYZZAXINKRY4201-01-69 16:12:0089.2[facility] KqtztfpZIZDLUFGBN6726-04-43 16:12:00 Test Item Value Reference Range Interpretation Comments MCH (test code = MCH) 29.5 pg 27.0-31.0 [facility] NdtobxiJHWFNQQXZJ7330-44-41 16:12:003.72[facility] HermannHEMATOLOGY 2016-09-11 16:12:0014.7[facility] GlyzwioCNFJKPJBRF4021-52-56 16:12:008.2[facility] RegnakwSNGQZPHDLU4783-25-81 16:12:0033.1[facility] MggawkxKATPQMSPSI9540-52-03 16:12:00 Test Item Value Reference Range Interpretation Comments PT (test code = PT) 16.6 s 12.0-14.7 [facility] HmvlzxtJDHAMXOZJU6052-61-22 16:12:001.32[facility] HermannHEMATOLOGY 2016-09-11 16:12:00 Test Item Value Reference Range Interpretation Comments PTT (test code = PTT) 43.0 s 22.9-35.8 [facility] ZivfktfMCXQPSTXPN8810-79-63 16:12:001.6[facility] HermannHEMATOLOGY 2016-09-11 16:12:000.3[facility] IohqcgrPHHKONSJYB7117-69-33 16:12:001.7[facility] TdecjvqKWAUXZKYQL8141-00-55 16:12:000.5[facility] PshvrxgWORTIVJWWZ3667-63-84 16:12:004.5[facility] OmzpeocHVCSYQQLWH8095-91-48 16:12:003.4[facility] OYKILYFTKY3759-52-00 16:12:0055.3[facility] IyaxrxcPLZVEVYFDU8356-87-02 16:12:00 21.2[facility] FghrcjzSAZQTZHWJL3442-60-34 16:12:0019.6[facility] HermannCHEM PANEL 2014-03-05 16:27:009.4[facility] HermannCHEM CTYND3303-76-08 16:27:0026[facility] HermannCHEM VUODJ1534-31-28 16:27:0040[facility] HermannCHEM NYWEJ6016-05-73 16:27:0045[facility] HermannCHEM JTLXN2775-43-45 16:27:83225Vknksngk HermannCHEM BFPND6322-68-90 16:27:004.4[facility] HermannCHEM NEBJF5341-66-12 16:27:94190 [facility]annCHEM NWATR1010-27-61 16:27:001.7[facility] HermannCHEM PANEL 2014-03-05 16:27:77037Fcewbjcw HermannCHEM NQFBR5986-64-08 16:27:0011.4[facility] BbppfqaZKVAMIYONA6400-86-83 16:27:007.3[facility] VgwbhpbDWAZNWVFDA5227-86-91 16:27:0033.9[facility] FfrcjhxJBNCTOCIHX7997-88-40 16:27:04972Bnszslbe [place] EKYMGVLPCR6887-98-33 16:27:0013.7[facility] WmagocyGZVTWLAGSI4475-54-00 16:27:00 14.6[facility] PiuahetPAWWHOFRHY4038-34-64 16:27:0040.4[facility] HermannHEMATOLOGY 2014-03-05 16:27:00 Test Item Value Reference Range Interpretation Comments MCH (test code = MCH) 31.5 pg 27.0-31.[address] [facility] NskutvfKZGDKAIFEU0351-12-96 16:27:0092.8[facility] HermannHEMATOLOGY 2014-03-05 16:27:004.35[facility] JwuruehDUEZDYORZQ6414-10-18 16:27:009.4[facility] BdxdsehWUAVAPBTXQ7009-72-95 16:27:002.4[facility] DecfrfrCILTGJBULY5013-11-81 16:27:0014.6[facility] DfldoodMJBHCVJSHV8392-97-89 16:27:005.5[facility] CBBISTZCSB3084-29-65 16:27:0024.1[facility] BazsabvRHDVHQMTJB4668-83-42 16:27:00 58.6[facility] PltxvlsYYVNYXRVDP5285-43-00 16:27:000.0[facility] HermannHEMATOLOGY 2014-03-05 16:27:000.2[facility] KvlbfckCPQODINDMO6656-63-27 16:27:000.3[facility] CoarpvjHMOQVKYIUS5059-93-38 16:27:001.4[facility] DnvlbwsODOFUCPQMS5462-59-14 16:27:002.3[facility]
[2020-04-13] MEDS ORDERED: HYDROCODONE/APAP 5/325 MG TAB ONE ×2 (17:07→20:23)
--- NOTE | 2020-04-13 19:18 | RAD REPORT ---
EXAM DESCRIPTION: RAD - Foot Right 3 View - 04/13/2020 6:55 pm CLINICAL HISTORY: Great toe pain COMPARISON: Right foot March 16 FINDINGS: No fracture, dislocation or periosteal reaction. No acute or destructive bone process. The first MTP joint shows degenerative change. Calcifications are present adjacent to the medial margin first metatarsal head unchanged from comparison. Arterial tree calcifications are present. No air or foreign body in the soft tissues. IMPRESSION: Negative right foot examination for acute finding or progressive process from March 16. .
--- NOTE | 2020-04-13 19:50 | EDPHYS ---
Physician Documentation [facility] Name: Ely Coley Age: 74 yrs Sex: Male : 1945 Arrival Date: 04/13/2020 Time: 16:11 Bed 28 Private MD: Derrick Cassidy HPI: 04/13 19:39 This 74 yrs old Male presents to ER via Wheelchair with complaints of toe pm1 infection. 19:39 The patient presents with pain. The complaints affect the right first toe. Context: The pm1 problem was sustained at home, resulted from injuring toe 1 month ago, the patient can fully bear weight, the patient is able to ambulate. Onset: The symptoms/episode began/occurred 1 month(s) ago. Modifying factors: The symptoms are alleviated by elevation of extremity, the symptoms are aggravated by weight bearing, wearing shoes. Associated signs and symptoms: The patient has no apparent associated signs or symptoms. Severity of symptoms: in the emergency department the symptoms are unchanged. The patient has not recently seen a physician, seen 2/ for the same complaint and discharged home with clindamycin and bactrim. Patient is presenting to the ER with complaints of right great toe pain. Reports no resolution of wound that was sustained 1 month ago when he got his toe stuck under some furniture. Historical: - Allergies: 16:19 steroids; iw - Home Meds: 16:19 amiodarone 200 mg Oral tab 1 tab 2 times per day [Active]; Eliquis 2.5 mg Oral tab 1 iw tab 2 times per day [Active]; glipizide 5 mg Oral tr24 1 tab once daily [Active]; Humulin 70/30 subcutaneous Sub-Q [Active]; PreserVision AREDS 7,160-113-100 suxr-pn-pngr Oral tab daily [Active]; spironolactone 25 mg Oral tab 1 tab 2 times per day [Active]; - PMHx: 16:19 Atrial Fib; CVA; Diabetes - IDDM; Diabetes - NIDDM; Hypertension; Pacemaker; iw - Immunization history:: Adult Immunizations up to date. - Social history:: Smoking status: Patient denies any tobacco usage or history of. ROS: 19:39 MS/extremity: Positive for pain, Negative for decreased range of motion, deformity, pm1 ecchymosis, erythema. 19:39 Constitutional: Negative for fever, chills, and weight loss, Cardiovascular: Negative for chest pain, palpitations, and edema, Respiratory: Negative for shortness of breath, cough, wheezing, and pleuritic chest pain, Abdomen/GI: Negative for abdominal pain, nausea, vomiting, diarrhea, and constipation. 19:39 Neuro: Negative for headache, weakness, numbness, tingling, and seizure. 19:39 Skin: Positive for cellulitis, of the plantar aspect of right first toe. Exam: 19:39 Constitutional: This is a well developed, well nourished patient who is awake, alert, pm1 and in no acute distress. Head/Face: Normocephalic, atraumatic. 19:39 Cardiovascular: Exam negative for acute changes, Rate: normal, Rhythm: regular, Pulses: no pulse deficits are appreciated. 19:39 Respiratory: Exam negative for acute changes, respiratory distress, shortness of breath. 19:39 Skin: Appearance: normal except for affected area, eschar present to lateral plantar surface of right great toe. No cellulitis or abscess present. 19:39 Neuro: Exam negative for acute changes, Orientation: is normal, Mentation: is normal, Motor: is normal, moves all fours. Vital Signs: 16:16 BP 135 / 54; Pulse 63; Resp 16; Temp 98.6; Pulse Ox 100% on R/A; Weight 108.86 kg; iw Height 6 ft. 0 in. (182.88 cm); 17:30 BP 116 / 60; Pulse 64; Resp 16 S; Pulse Ox 100% on R/A; ca1 18:20 BP 126 / 59; Pulse 67; Resp 16 S; Pulse Ox 100% on R/A; ca1 19:20 BP 118 / 70; Pulse 60; Resp 16; Pulse Ox 99% ; rr5 20:25 BP 124 / 80; Pulse 69; Resp 17; Pulse Ox 98% ; rr5 16:16 Body Mass Index 32.55 (108.86 kg, 182.88 cm) iw MDM: 16:34 Patient medically screened. [facility] 19:48 Data reviewed: vital signs. Data interpreted: Pulse oximetry: on room air is 100 %. pm1 Interpretation: normal. Counseling: I had a detailed discussion with the patient and/or guardian regarding: the historical points, exam findings, and any diagnostic results supporting the discharge/admit diagnosis, radiology results, the need for outpatient follow up, a family practitioner, a geographic information system analyst, wound care, to return to the emergency department if symptoms worsen or persist or if there are any questions or concerns that arise at home. 19:52 ED course: One month ago patient was placed on both clindamycin and Bactrim. He reports pm1 that the wound did not heal. No erythema, abscess, discharge present. Appears that what is causing the patient's pain is eschar. Recommend that that patient follow up with wound care or podiatry for debridement of the eschar. Will discharge the patient home with doxycycline and pain medications. Would have preferred to discharge home with Cipro but contraindication with his amiodarone. 04/13 16:47 Order name: Foot Right 3 View XRAY pm1 04/13 19:18 Order name: RAD; Complete Time: 19:39 EDMS Administered Medications: 16:53 Drug: [place] 5 mg-325 mg 1 tabs {Note: rass 0.} Route: PO; ca1 20:05 Drug: [place] 5 mg-325 mg 1 tabs {Note: rass 0.} Route: PO; rr5 20:26 Follow up: Response: Medication administered at discharge. rr5 Disposition: 04/14 09:08 Co-signature as Attending Physician, Derrick Jansen MD I agree with the assessment and kanchan plan of care. Disposition: 04/13/20 19:49 Discharged to Home. Impression: Cellulitis of right toe. - Condition is Stable. - Discharge Instructions: Cellulitis, Adult. - Prescriptions for Doxycycline Hyclate 100 mg Oral Tablet - take 1 tablet by ORAL route every 12 hours; 20 tablet. Tylenol- Codeine #3 300-30 mg Oral Tablet - take 2 tablets by ORAL route every 4-6 hours As needed; 20 tablet. - Medication Reconciliation Form, Thank You Letter, Antibiotic Education, Prescription Opioid Use form. - Follow up: Emergency Department; When: As needed; Reason: Worsening of condition. Follow up: Private Physician; When: 2 - 3 days; Reason: Recheck today's complaints, Continuance of care, Re-evaluation by your physician. - Problem is new. - Symptoms have improved. Signatures: Dispatcher [employer] Derrick Tijerina MD MD cha Williams, Irene, RN RN iw Marinas, Patrick, JOLIE CHANNELER INSOLE pm1 Elfego Maki RN RN rr5 Jaimee Mao RN RN ca1 Corrections: (The following items were deleted from the chart) 04/13 20:25 19:49 04/13/2020 19:49 Discharged to Home. Impression: Cellulitis of right toe. rr5 Condition is Stable. Forms are Medication Reconciliation Form, Thank You Letter, Antibiotic Education, Prescription Opioid Use. Follow up: Emergency Department; When: As needed; Reason: Worsening of condition. Follow up: Private Physician; When: 2 - 3 days; Reason: Recheck today's complaints, Continuance of care, Re-evaluation by your physician. Problem is new. Symptoms have improved. pm1 20:27 20:25 04/13/2020 19:49 Discharged to Home. Impression: Cellulitis of right toe. rr5 Condition is Stable. Discharge Instructions: Cellulitis, Adult. Prescriptions for Doxycycline Hyclate 100 mg Oral Tablet - take 1 tablet by ORAL route every 12 hours; 20 tablet, Tylenol-Codeine #3 300-30 mg Oral Tablet - take 2 tablets by ORAL route every 4-6 hours As needed; 20 tablet. and Forms are Medication Reconciliation Form, Thank You Letter, Antibiotic Education, Prescription Opioid Use. Follow up: Emergency Department; When: As needed; Reason: Worsening of condition. Follow up: Private Physician; When: 2 - 3 days; Reason: Recheck today's complaints, Continuance of care, Re-evaluation by your physician. Problem is new. Symptoms have improved. rr5
--- NOTE | 2020-04-13 19:50 | ER ---
Nurse's Notes [facility] [place] Name: Ely Coley Age: 74 yrs Sex: Male : 1945 Arrival Date: 04/13/2020 Time: 16:11 Bed 28 Private MD: Diagnosis: Cellulitis of right toe Presentation: 04/13 16:16 Chief complaint: Patient states: injured his right big toe a month ago and it is still iw hurting. Coronavirus screen: At this time, the client does not indicate any symptoms associated with coronavirus-19. Ebola Screen: Patient negative for fever greater than or equal to 101.5 degrees Fahrenheit, and additional compatible Ebola Virus Disease symptoms Patient denies exposure to infectious person. Patient denies travel to an Ebola-affected area in the 21 days before illness onset. No symptoms or risks identified at this time. Initial Sepsis Screen: Does the patient meet any 2 criteria? No. Patient's initial sepsis screen is negative. Does the patient have a suspected source of infection? No. Patient's initial sepsis screen is negative. Risk Assessment: Do you want to hurt yourself or someone else? Patient reports no desire to harm self or others. Onset of symptoms was March 2020. 16:16 Method Of Arrival: Wheelchair iw 16:16 Acuity: MITCH 4 iw 16:23 Acuity: MITCH 3 iw Historical: - Allergies: 16:19 steroids; iw - Home Meds: 16:19 amiodarone 200 mg Oral tab 1 tab 2 times per day [Active]; Eliquis 2.5 mg Oral tab 1 iw tab 2 times per day [Active]; glipizide 5 mg Oral tr24 1 tab once daily [Active]; Humulin 70/30 subcutaneous Sub-Q [Active]; PreserVision AREDS 7,160-113-100 [id number] Oral tab daily [Active]; spironolactone 25 mg Oral tab 1 tab 2 times per day [Active]; - PMHx: 16:19 Atrial Fib; CVA; Diabetes - IDDM; Diabetes - NIDDM; Hypertension; Pacemaker; iw - Immunization history:: Adult Immunizations up to date. - Social history:: Smoking status: Patient denies any tobacco usage or history of. Screenin:25 Abuse screen: Denies threats or abuse. Denies injuries from another. Nutritional ca1 screening: No deficits noted. Tuberculosis screening: No symptoms or risk factors identified. Fall Risk Ambulatory Aid- Crutches/Cane/Walker (15 pts). Assessment: 16:25 General: Appears in no apparent distress. comfortable, Behavior is calm, cooperative, ca1 appropriate for age. Pain: Complains of pain in plantar aspect of right first toe Pain currently is 5 out of 10 on a pain scale. Pain began a month ago. Neuro: Level of Consciousness is awake, alert, obeys commands, Oriented to person, place, time, situation. Derm: Skin is healthy with good turgor, Skin is pink, warm \T\ dry. Wound noted plantar aspect of right first toe Wound is Dry, with eschar 1/2 inch in diameter. Musculoskeletal: Circulation, motion, and sensation intact. Capillary refill < 3 seconds. 17:30 Reassessment: Patient appears in no apparent distress at this time. Patient and/or ca1 family updated on plan of care and expected duration. Pain level reassessed. Patient is alert, oriented x 3, equal unlabored respirations, skin warm/dry/pink. 18:20 Reassessment: Patient appears in no apparent distress at this time. Patient and/or ca1 family updated on plan of care and expected duration. Pain level reassessed. Patient is alert, oriented x 3, equal unlabored respirations, skin warm/dry/pink. 19:20 General: Appears in no apparent distress. comfortable, Behavior is calm, cooperative, rr5 appropriate for age. Neuro: Level of Consciousness is awake, alert, obeys commands, Oriented to person, place, time. Cardiovascular: Capillary refill < 3 seconds Patient's skin is warm and dry. Respiratory: Airway is patent Respiratory effort is even, unlabored, Respiratory pattern is regular, symmetrical. Derm: Skin is healthy with good turgor, Skin is pink, warm \T\ dry. Wound noted right first toe and right foot and plantar aspect of right first toe Wound is dry black redness around the area. Musculoskeletal: Capillary refill < 3 seconds. 20:25 Reassessment: Patient appears in no apparent distress at this time. Patient is alert, rr5 oriented x 3, equal unlabored respirations, skin warm/dry/pink. discharge instruction given and explained without complaints made. Vital Signs: 16:16 BP 135 / 54; Pulse 63; Resp 16; Temp 98.6; Pulse Ox 100% on R/A; Weight 108.86 kg; iw Height 6 ft. 0 in. (182.88 cm); 17:30 BP 116 / 60; Pulse 64; Resp 16 S; Pulse Ox 100% on R/A; ca1 18:20 BP 126 / 59; Pulse 67; Resp 16 S; Pulse Ox 100% on R/A; ca1 19:20 BP 118 / 70; Pulse 60; Resp 16; Pulse Ox 99% ; rr5 20:25 BP 124 / 80; Pulse 69; Resp 17; Pulse Ox 98% ; rr5 16:16 Body Mass Index 32.55 (108.86 kg, 182.88 cm) iw ED Course: 16:11 Patient arrived in ED. as 16:18 Triage completed. iw 16:19 Arm band placed on. iw 16:22 Jaimee Mao, JUDSON is Primary Nurse. ca1 16:25 Patient has correct armband on for positive identification. Call light in reach. Side ca1 rails up X2. Bed in low position. Pulse ox on. NIBP on. Warm blanket given. 16:32 Jorge Cope NP is PHCP. pm1 16:32 Derrick Jansen MD is Attending Physician. pm1 20:25 No provider procedures requiring assistance completed. Patient did not have IV access rr5 during this emergency room visit. Administered Medications: 16:53 Drug: [place] 5 mg-325 mg 1 tabs {Note: rass 0.} Route: PO; ca1 20:05 Drug: [place] 5 mg-325 mg 1 tabs {Note: rass 0.} Route: PO; rr5 20:26 Follow up: Response: Medication administered at discharge. rr5 Outcome: 19:49 Discharge ordered by . pm1 20:25 Discharged to home via wheelchair. rr5 20:25 Condition: stable 20:25 Discharge instructions given to patient, Instructed on discharge instructions, follow up and referral plans. medication usage, Demonstrated understanding of instructions, follow-up care, medications, Prescriptions given X 2. 20:27 Patient left the ED. rr5 Signatures: Aliyah Henderson Irene, RN RN iw Jorge Cope NP ENVIRONMENTAL EDUCATION SPECIALIST pm1 Elfego Maki RN RN rr5 Jaimee Mao RN RN ca1 Corrections: (The following items were deleted from the chart) 16:19 16:16 BP 135 / 54; Pulse 63bpm; Resp 73bpm; Pulse Ox 100% RA; Temp 98.6F; iw iw
[2020-04-13 20:31] VITALS: TEMP 98.6
[2020-04-13 20:35] VITALS: BP 124/80; O2SAT 98
== END 2020-04-13 20:27 | disposition home or self-care (01) ==
LOC: ER 16:09
DX: L03.031 Cellulitis of right toe (principal); I10 Essential (primary) hypertension; E11.9 Type 2 diabetes mellitus without complications; I48.91 Unspecified atrial fibrillation; Z79.01 Long term (current) use of anticoagulants; Z79.4 Long term (current) use of insulin; Z88.8 Allergy status to other drugs, medicaments and biological substances; Z95.0 Presence of cardiac pacemaker
CPT/HCPCS: 99283

== ENCOUNTER 2020-04-25 14:01 | Inpatient (IN) | payer OTHER ==
--- OUTSIDE RECORDS SUMMARY | 2020-04-25 14:08 | XMS REPORT | Continuity of Care Document ---
:1945 Author Organization [facility] t Address 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 04-02 Yuliya kes - 00:00: Medical 00 [place] DARRELL (acute DARRELL (acute Disease Active 2016-[address] kidney kidney 04-02 [facility] - injury) injury) 00:00: Medical 00 [place] Pneumonia Pneumonia Disease Active 2016-[address] 04-01 [facility] PAROXYSMAL Diagnosis Active 2016-09-14 Memoria AFIB, 08-28 10:10:00 l BRADYCARDI 00:00: Pepe smith A PAROXYSMAL 00 AFIB, BRADYCARDI A Active 08/28/2016 [facility] CCL/DUAL Diagnosis Active 2016-08-31 M emoria PMAKER 08-28 15:00:00 l IMPLANT/BS CCL/DUAL 00:00: He rmann /DX: PMAKER 00 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 Active 08/28/2016 [facility] 362.56 Diagnosis Active 2014-06-04 Mem oria EPIRETINAL 02-14 10:13:00 l MEMBRANE 362.56 00:00: Pepe smith LEFT EYE EPIRETINAL 00 MEMBRANE LEFT EYE Active 02/14/2014 [facility] Cerebrovas Problem Resolve 2016-09-15 Memoria cular d 00:18:55 l accident [place] (disorder) Cerebrovas cular accident (disorder) Resolved Problem 09/15/2016 [facility] Dizziness Problem Resolve 2016-09-15 M emoria (finding) d 00:18:55 l Tino Dizziness (finding) Resolved Problem 09/15/2016 [facility] Edema Problem Resolve 2016-09-15 Niko reynold (finding) d 00:18:55 l Edema [place] (finding) Resolved Problem 09/15/2016 [facility] Syncope Problem Resolve 2016-09-15 Mem oria (disorder) d 00:18:55 l Syncope [place] (disorder) Resolved Problem 09/15/2016 [facility] Bradycardi Problem Resolve 2016-09-15 Memoria a d 00:18:55 l (disorder) Pepe smith Bradycardi a (disorder) Resolved Problem 09/15/2016 [facility] Chest pain Problem Resolve 2016-09-15 Memoria (finding) d 00:18:55 l Chest [place] pain (finding) Resolved Problem 09/15/2016 [facility] Allergies, Adverse Reactions, Alerts Allergy Allergy Status Severity Reaction(s) Onset Inactive Treating Comm ents Source Name Type Date Date Clinician NKFA NKFA Active Memoria l Tino Family History Family Member Diagnosis Comments Start Date Stop Date Source Natural brother Cancer [facility] Natural brother Diabetes [facility] Natural brother Hypertension [facility] Natural mother Heart disease [facility] Natural sister Hypertension [facility] Social History Social Habit Start Date Stop Date Quantity Comments Source Sex Assigned At [facility] Alcohol intake 2017-02-06 2017-02-06 Current [facility] es - 00:00:00 00:00:00 non-drinker of Medical Ce nter alcohol (finding) Tobacco use and 2017-02-06 2017-02-06 Never used [facility] - exposure 00:00:00 00:00:[address] [facility] Social History 2014-03-05 2014-03-05 [facility] 17:12:04 17:12:04 Smoking Status Start Date Stop Date Source Former smoker 2017-02-06 00:00:00 2017-02-06 00:00:00 [facility] Medications Ordered Filled Start Stop [...] 09-12 Route: IM, l 16:50: Drug form: [place] PDR/INJ, PRN, Dosing Weight 116.364, kg, PRN [...] as: l 03:33: Mag-Ox 400) Magnesium oxide 130st=803n g elemental magnesium Dose=____m g magnesium oxide [...] 8-05 (Same as: l odium 03:33: Phos-NaK) [place] phosphate 00 Each 1.5 250 mg-280 gm [...] WASTE: F/P l 03:21: - Sink; E [place] 00 - Municipal Trash [facility] Potassium No Notes: Memori a Chloride 8-05 (Same as: l 03:21: K-Dur 20) [place] 00 "Do Not Crush" With food and full glass of water Pradaxa No Notes: DO Memor ia 09-12 NOT break, l 02:00: chew or [place] 00 open capsules for administra tion. metoprolol [...] 60 l mg oral 22:15: tab, 1 Tino tablet 00 Refill(s) metoprolol No Notes: Memor [...] 04 PO, QAM, 0 l 16:33: Refill(s) Tino [...] l MG / 17:21: 30 tab, 0 [place] Triamterene 00 Refill(s) 75 MG Oral Tablet Vital Signs Vital Name Observation Time Observation Value Comments Source Temperature Oral (F) 2016-09-12 20:06:00 97.9 F [facility] [place] Respitory Rate 2016-09-12 19:00:00 Memori al Tino Systolic (mm Hg) 2016-09-12 19:00:00 Niko rial [place] Diastolic (mm Hg) 2016-09-12 19:00:00 Mem orial Tino Respitory Rate 2016-09-12 18:00:00 Memori al [place] Systolic (mm Hg) 2016-09-12 18:00:00 Niko rial [place] Diastolic (mm Hg) 2016-09-12 18:00:00 Mem orial [place] Respitory Rate 2016-09-12 17:00:00 Memori al [place]ino Systolic (mm Hg) 2016-09-12 17:00:00 Niko rial [place] Diastolic (mm Hg) 2016-09-12 17:00:00 Mem orial Tino Temperature Oral (F) 2016-09-12 12:51:00 97.9 F [facility] [place] Temperature Oral (F) 2016-09-12 10:38:00 97.6 F [facility] [place] BMI Calculated 2016-09-11 16:02:00 Memori al [place] Weight 2016-09-11 16:02:00 [facility] [place] Height 2016-09-11 16:02:00 182.88 cm [facility] [place] Systolic (mm Hg) 2014-03-06 20:30:00 Niko rial [place] Diastolic (mm Hg) 2014-03-06 20:30:00 Mem orial [place] Respitory Rate 2014-03-06 20:30:00 Memori al [place] Diastolic (mm Hg) 2014-03-06 20:15:00 Mem orial [place]ino Systolic (mm Hg) 2014-03-06 20:15:00 Niko rial [place] Respitory Rate 2014-03-06 20:15:00 Memori al [place] Diastolic (mm Hg) 2014-03-06 20:02:00 Mem di [place] Systolic (mm Hg) 2014-03-06 20:02:00 Niko rosenthal [place] Respitory Rate 2014-03-06 20:02:00 John ferris [place] Heart Rate 2014-03-06 17:15:00 [facility] [place] Heart Rate 2014-03-05 17:17:00 [facility] [place] BMI Calculated 2014-03-05 16:24:00 John al [place] Weight 2014-03-05 16:24:00 [facility] [place] Height 2014-03-05 16:24:00 180.34 cm [facility] Tino Procedures Procedure Date / Time Performed Performing Clinician [facility] wood Arthroplasty of [facility] knee<sup>1</sup> Procedure<sup>2</sup> [facility] ermann Encounters Start End Encounter Admission Attending Care Care Encounter Source Date/Time Date/Time Type Type Clinicians Facility Department ID 2016-09-11 2016-09-12 Outpatient Jacquelin, [facility] [id number] 10:41:00 16:00:00 Eddie 2014-03-06 2014-03-06 Outpatient Rosa, [facility] [id number] 10:57:00 15:00:00 Jean Carlos L 00 Results Test Description Test Time Test Comments Results Result Comments Source POCT-GLUCOSE METER 2017-02-08 13:28:00 Test Item Value Reference Range Interpretation Comme nts POC-GLUCOSE METER (BEAKER) (test 270 mg/dL 70-[address] [facility] [address] code = 1538) [facility] 7703 0 POCT-GLUCOSE [id number] 08:58:00 Test Item Value Reference Range Interpretation Comments POC-GLUCOSE METER 147 mg/dL 70-[address] [facility] 67[address] (BEAKER) (test code = BERTNE R [facility] 1538) [id number] CBC W/PLT COUNT & AUTO [id number] 08:53:00 Test Item Value Reference Range Interpretation [...] 0-1 PERCENT (BEAKER) (test code = 2801) [id number] 08:05:00 Test Item Value Reference Range Interpretation Comments MAGNESIUM (BEAKER) (test code = 1.5 mg/dL 1.6-2.6 L 627) BASIC METABOLIC [id number] 08:05:00 Test Item Value Reference Range Interpretation [...] NOT APPLICABLE FOR DIALYSIS PATIEN TS. POCT-GLUCOSE [id number] 21:57:00 Test Item Value Reference Range Interpretation Comments POC-GLUCOSE METER 219 mg/dL 70-[address] [facility] 67 ([facility]) (test code = [place] 1538) [id number] POCT-GLUCOSE [id number] 17:24:00 Test Item Value Reference Range Interpretation Comments POC-GLUCOSE METER 247 mg/dL 70-110 H TESTED AT [place] [address] ([facility]) (test code = [place] 1538) [address] CBC W/PLT COUNT & AUTO [id number] 13:56:00 Test Item Value Reference Range Interpretation [...] (BEAKER) (test code Normal = 762) POCT-GLUCOSE [id number] 13:22:00 Test Item Value Reference Range Interpretation Comments POC-GLUCOSE METER 226 mg/dL 70-110 H TESTED AT [place] [address] [facility] (test code = [place] [facility] 1538) [address] POCT-GLUCOSE [id number] 07:59:00 Test Item Value Reference Range Interpretation Comments POC-GLUCOSE METER 216 mg/dL 70-110 H TESTED AT [place] [address] ([facility]) (test code = [place] [facility] 1538) [address] [id number] 05:18:00 Test Item Value Reference Range Interpretation Comments MAGNESIUM (BEAKER) (test code = 1.7 mg/dL 1.6-2.6 627) BASIC METABOLIC [id number] 05:18:00 Test Item Value Reference Range Interpretation [...] NOT APPLICABLE FOR DIALYSIS PATIEN TS. POCT-GLUCOSE [id number] 20:58:00 Test Item Value Reference Range Interpretation Comments POC-GLUCOSE METER 260 mg/dL 70-[address] [facility] 67 ([facility]) (test code = [facility] [place] 1538) [address] POCT-GLUCOSE [id number] 17:32:00 Test Item Value Reference Range Interpretation Comments POC-GLUCOSE METER 237 mg/dL 70-110 H TESTED AT [place] [address] ([facility]) (test code = [facility] [place] 1538) [id number] POCT-GLUCOSE [id number] 16:21:00 Test Item Value Reference Range Interpretation Comments POC-GLUCOSE METER 223 mg/dL 70-110 H TESTED AT [place] [address] ([facility]) (test code = [facility] 1538) [address] CBC W/PLT COUNT & AUTO [id number] 14:22:00 Test Item Value Reference Range Interpretation [...] (BEAKER) (test code = Normal 762) POCT-GLUCOSE [id number] 11:52:00 Test Item Value Reference Range Interpretation Comments POC-GLUCOSE METER 143 mg/dL 70-[address] [facility] 67 (BEAKER) (test code = [facility] 1538) [address] POCT-GLUCOSE [id number] 08:04:00 Test Item Value Reference Range Interpretation Comments POC-GLUCOSE METER 86 mg/dL 70-[address] [facility] 6720 (BEAKER) (test code = [facility] [address] 1538) [id number] 06:07:00 Test Item Value Reference Range Interpretation Comments MAGNESIUM (BEAKER) 1.6 mg/dL 1.6-2.6 Specimen slightly (test code = 627) hemolyzed BASIC METABOLIC [id number] 06:07:00 Test Item Value Reference Range Interpretation [...] NOT APPLICABLE FOR DIALYSIS PATIEN TS. POCT-GLUCOSE [id number] 20:42:00 Test Item Value Reference Range Interpretation Comments POC-GLUCOSE METER 338 mg/dL 70-[address] [facility] 6720 ([facility]) (test code = [place] [facility] 1538) [id number] POCT-GLUCOSE [id number] 17:41:00 Test Item Value Reference Range Interpretation Comments POC-GLUCOSE METER 303 mg/dL 70-110 H TESTED AT [place] [id number] ([facility]) (test code = [place] [facility] 1538) [address] RAD, CHEST, 1 VIEW, NON [id number] 14:44:00Reason for exam:->shortness of breath s/p RHCShould this be performed at the bedside?->YesFINAL REPORT CLINICAL HISTORY: shortness of breath s/p RHC TECHNIQUE: 1 viewof the chest. COMPARISON: 01/31/2017 IMPRESSION: Trace bilateral pleural effusions are again seen with left basilar atelectasis. The cardiomediastinal silhouette is magnified by technique with a pacemaker. Signed: Barbara Pizarro MDReport Verified Date/Time: 02/05/2017 14:44:20 Reading Location: [facility] C013W Consult Reading Room CBC W/PLT COUNT & AUTO [id number] 14:37:00 Test Item Value Reference Range Interpretation [...] (BEAKER) (test code = Normal 762) POCT-GLUCOSE [id number] 12:08:00 Test Item Value Reference Range Interpretation Comments POC-GLUCOSE METER 197 mg/dL 70-[address] [facility] 67[address] (BEAKER) (test code = [place] 1538) [address] POCT-GLUCOSE [id number] 07:55:00 Test Item Value Reference Range Interpretation Comments POC-GLUCOSE METER 149 mg/dL 70-[address] [facility] 6720 (BEAKER) (test code = [place] 1538) [address] [id number] 05:21:00 Test Item Value Reference Range Interpretation Comments MAGNESIUM (BEAKER) (test code = 1.4 mg/dL 1.6-2.6 L 627) BASIC METABOLIC [id number] 05:21:00 Test Item Value Reference Range Interpretation [...] NOT APPLICABLE FOR DIALYSIS PATIEN TS. POCT-GLUCOSE [id number] 21:03:00 Test Item Value Reference Range Interpretation Comments POC-GLUCOSE METER 296 mg/dL 70-[address] [facility] [address] [facility] (test code = [place] 1538) [address] POCT-GLUCOSE [id number] 17:18:00 Test Item Value Reference Range Interpretation Comments POC-GLUCOSE METER 275 mg/dL 70-[address] [facility] 6720 ([facility]) (test code = [place] 1538) [address] CBC W/PLT COUNT & AUTO [id number] 15:04:00 Test Item Value Reference Range Interpretation [...] COUNTED (BEAKER) (test code = 1351) POCT-GLUCOSE [id number] 12:17:00 Test Item Value Reference Range Interpretation Comments POC-GLUCOSE METER 208 mg/dL 70-[address] [facility] 67[address] (BEAKER) (test code = [place] 1538) [address] POCT-GLUCOSE [id number] 08:57:00 Test Item Value Reference Range Interpretation Comments POC-GLUCOSE METER 230 mg/dL 70-[address] [facility] 67[address] (BEAKER) (test code = [place] 1538) [address] [id number] 05:56:00 Test Item Value Reference Range Interpretation Comments MAGNESIUM (BEAKER) (test code = 1.6 mg/dL 1.6-2.6 627) BASIC METABOLIC [id number] 05:56:00 Test Item Value Reference Range Interpretation [...] NOT APPLICABLE FOR DIALYSIS PATIEN TS. POCT-GLUCOSE [id number] 21:20:00 Test Item Value Reference Range Interpretation Comments POC-GLUCOSE METER 329 mg/dL 70-110 H Notified R Warren WATTS/TESTED (BEAKER) (test code = AT [facility] [address] [place] [address]) [facility] 7703 0 POCT-GLUCOSE [id number] 18:14:00 Test Item Value Reference Range Interpretation Comments POC-GLUCOSE METER 299 mg/dL 70-[address] [facility] 67 ([facility]) (test code = [place] [address]) [address] CBC W/PLT COUNT & AUTO [id number] 15:17:00 Test Item Value Reference Range Interpretation [...] (BEAKER) (test code = Normal 762) POCT-GLUCOSE [id number] 12:54:00 Test Item Value Reference Range Interpretation Comments POC-GLUCOSE METER 173 mg/dL 70-[address] [facility] 67[address] (BEAKER) (test code = [place] 1538) [address] URINALYSIS W/ REFLEX URINE [id number] 12:06:00 Test Item Value Reference Range Interpretation [...] code = 1584) SOURCE(BEAKER) (test code = 7697) CREATININE, RANDOM [id number] 10:52:00 Test Item Value Reference Range Interpretation Comments CREATININE URINE (BEAKER) (test 127.3 mg/dL code = 375) Reference Range: No NormalsPROTEIN, RANDOM [id number] 10:52:00 Test Item Value Reference Range Interpretation Comments PROTEIN, URINE (BEAKER) (test code = 19 mg/dL 0-14 H 1569) POCT-GLUCOSE [id number] 07:55:00 Test Item Value Reference Range Interpretation Comments POC-GLUCOSE METER 88 mg/dL 70-[address] [facility] 6720 (BEAKER) (test code = [place] [address] 1538) [id number] 05:22:00 Test Item Value Reference Range Interpretation Comments MAGNESIUM (BEAKER) (test code = 1.8 mg/dL 1.6-2.6 627) BASIC METABOLIC [id number] 05:22:00 Test Item Value Reference Range Interpretation [...] 0-100 H (test code = 700) POCT-GLUCOSE [id number] 21:36:00 Test Item Value Reference Range Interpretation Comments POC-GLUCOSE METER 230 mg/dL 70-110 H TESTED AT [place] [address] ([facility]) (test code = [place] 1538) [address] POCT-GLUCOSE [id number] 17:50:00 Test Item Value Reference Range Interpretation Comments POC-GLUCOSE METER 185 mg/dL 70-110 H TESTED AT [place] [address] ([facility]) (test code = [place] 1538) [address] POCT-GLUCOSE [id number] 12:49:00 Test Item Value Reference Range Interpretation Comments POC-GLUCOSE METER 168 mg/dL 70-110 H TESTED AT [place] [address] ([facility]) (test code = [place] 1538) [address] CT, CHEST, WITHOUT [id number] 11:27:00FINAL REPORT Chest CT without contrast Reason [...] MDReport Verified Date/Time: 02/02/2017 11:27:58 Reading Location: [address] Consult Reading Room POCT-GLUCOSE [id number] 08:24:00 Test Item Value Reference Range Interpretation Comments POC-GLUCOSE METER 84 mg/dL 70-[address] [facility] 6720 ([facility]) (test code = [place] [address] 1538) [id number] 07:42:00 Test Item Value Reference Range Interpretation Comments MAGNESIUM (ERIK) (test code = 1.8 mg/dL 1.6-2.6 627) BASIC METABOLIC [id number] 07:42:00 Test Item Value Reference Range Interpretation [...] PATIEN TS. CBC W/PLT COUNT & AUTO [id number] 07:40:00 Test Item Value Reference Range Interpretation [...] PERCENT (BEAKER) (test code = 2801) POCT-GLUCOSE [id number] 21:29:00 Test Item Value Reference Range Interpretation Comments POC-GLUCOSE METER 273 mg/dL 70-110 H TESTED AT [place] [address] ([facility]) (test code = [place] [facility] 1538) [address] POCT-GLUCOSE [id number] 19:21:00 Test Item Value Reference Range Interpretation Comments POC-GLUCOSE METER 286 mg/dL 70-110 H TESTED AT [place] [address] ([facility]) (test code = [place] 1538) [address] POCT-GLUCOSE [id number] 17:33:00 Test Item Value Reference Range Interpretation Comments POC-GLUCOSE METER 263 mg/dL 70-110 H TESTED AT [place] [address] ([facility]) (test code = [place] [facility] 1538) [address] POCT-GLUCOSE [id number] 12:25:00 Test Item Value Reference Range Interpretation Comments POC-GLUCOSE METER 196 mg/dL 70-110 H TESTED AT [place] [address] (BEAKER) (test code = [place] 1538) [address] CBC W/PLT COUNT & AUTO [id number] 10:54:00 Test Item Value Reference Range Interpretation [...] (BEAKER) (test code = Normal 762) POCT-GLUCOSE [id number] 08:17:00 Test Item Value Reference Range Interpretation Comments POC-GLUCOSE METER 176 mg/dL 70-[address] [facility] 6720 (BEAKER) (test code = [place] 1538) [address] [id number] 06:41:00 Test Item Value Reference Range Interpretation Comments MAGNESIUM (BEAKER) (test code = 1.7 mg/dL 1.6-2.6 627) BASIC METABOLIC [id number] 06:41:00 Test Item Value Reference Range Interpretation [...] NOT APPLICABLE FOR DIALYSIS PATIEN TS. POCT-GLUCOSE [id number] 21:33:00 Test Item Value Reference Range Interpretation Comments POC-GLUCOSE METER 295 mg/dL 70-110 H TESTED AT [place] [address] ([facility]) (test code = [place] 1538) [address] POCT-GLUCOSE [id number] 17:47:00 Test Item Value Reference Range Interpretation Comments POC-GLUCOSE METER 277 mg/dL 70-110 H TESTED AT [place] [address] ([facility]) (test code = [place] 1538) [address] RAD, CHEST, 2 [id number] 15:44:00Reason for exam:->dyspneaFINAL REPORT HISTORY : dyspnea. [...] Graff Verified Date/Time: 01/31/2017 15:44:13 Reading Location: [address] Ortho Consult Reading Room POCT-GLUCOSE [id number] 11:51:00 Test Item Value Reference Range Interpretation Comments POC-GLUCOSE METER 238 mg/dL 70-110 H TESTED AT [place] [address] ([facility]) (test code = [place] 1538) [address] POCT-GLUCOSE [id number] 09:54:00 Test Item Value Reference Range Interpretation Comments POC-GLUCOSE METER 224 mg/dL 70-110 H TESTED AT [place] [address] ([facility]) (test code = [place] 1538) [address] CBC W/PLT COUNT & AUTO [id number] 05:34:00 Test Item Value Reference Range Interpretation Comments WHITE BLOOD CELL COUNT ([facility]) 9.4 K/ L 3.5-10.5 (test code = 775) RED BLOOD CELL COUNT ([facility]) 4.42 M/ L 4.63-6.08 L (test code [...] 0-1 PERCENT (BEAKER) (test code = 2801) [id number] 05:19:00 Test Item Value Reference Range Interpretation Comments MAGNESIUM (BEAKER) (test code = 1.8 mg/dL 1.6-2.6 627) BASIC METABOLIC [id number] 05:19:00 Test Item Value Reference Range Interpretation [...] APPLICABLE FOR DIALYSIS PATIEN TS. STREP PNEUMONIAE [id number] 23:56:00 Test Item Value Reference Range Interpretation [...] the detection limit of the test.LEGIONELLA ANTIGEN, [id number] 23:54:00 Test Item Value Reference Range Interpretation [...] may cau se disease. INFLUENZA A H1N1 [id number] 23:10:00 Test Item Value Reference Range Interpretation Comments INFLUENZA A RNA Not Detected Not Detected, (BEAKER) (test code = Inconclusive 1545) NOVEL H1N1 RNA (BEAKER) Not Detected Not Detected, (test code = 1546) Inconclusive These assays were performed by real-time RT-PCR (highway administrative engineer-PCR) utilizing fluorogenic hydrolysis probe technology for the detection of human Influenza A viruses and the differential detection of novel H1N1 Influenza virus in respiratory specimens. The test is composed of (1) an RNA extraction from patient specimen, and (2) highway administrative engineer-PCR amplification and detection with human Influenza A and novel R6W4-ologgaif primers and probes. A well-conserved region of [...] its performance characte ristics determined by the [facility] [place], [place] Pathology Department, Section of Molecular Pathology. It has not been cleared or approved by the U.S. Food and Drug Administration (FDA). SinceFDA approval is not required for clinical use of the test, validation was done as required by The Clinical Laboratory Amendments of 1988.These assays were performed by real-time RT-PCR (highway administrative engineer-PCR) utilizing fluorogenic hydrolysis probe technology for the detection of human Influenza A viruses and the differential detection of novel H1N1 Influenza virus in respiratory specimens. The test is composed of (1) an RNA extraction from patient specimen, and (2) highway administrative engineer-PCR amplification and detection with human Influenza A and novel O9A1-kinyexpq primers and probes. A well- conserved region [...] The Clinical Laboratory Amendments of 1988.POCT- GLUCOSE [id number] 23:03:00 Test Item Value Reference Range Interpretation Comments POC-GLUCOSE METER 233 mg/dL 70-[address] [facility] 6720 (BEAKER) (test code = [place] [place] 1538) [address] U/S, RENAL, [id number] 22:23:00Reason for exam:->akiFINAL REPORT U/S, RENAL, COMPLETE [...] MDReport Verified Date/Time: 01/30/2017 22:23:06 Reading Location: [facility] C013X Ortho Consult Reading Room SODIUM, RANDOM [id number] 20:40:00 Test Item Value Reference Range Interpretation Comments SODIUM URINE (BEAKER) (test code = < meq/L 243) Reference Range: No NormalsEOSINOPHIL SMEAR, [id number] 20:40:00 Test Item Value Reference Range Interpretation Comments EOSINOPHIL SMEAR, URINE (BEAKER) No EOS seen No EOS seen (test code = 1851) CREATININE, RANDOM [id number] 20:24:00 Test Item Value Reference Range Interpretation Comments CREATININE URINE (BEAKER) (test 113.2 mg/dL code = 375) Reference Range: No NormalsMICROALBUMIN, RANDOM [id number] 20:24:00 Test Item Value Reference Range Interpretation Comments MICROALBUMIN URINE (BEAKER) (test 4.2 mg/dL code = 1794) Reference Range: No NormalsURINALYSIS W/ [id number] 20:14:00 Test Item Value Reference Range Interpretation [...] 516) SOURCE(BEAKER) (test code = Urine, Voided 0489) POCT-GLUCOSE [id number] 18:25:00 Test Item Value Reference Range Interpretation Comments POC-GLUCOSE METER 230 mg/dL 70-[address] [facility] 67 (BEAKER) (test code = [facility] 1538) [address] POCT-GLUCOSE [id number] 13:49:00 Test Item Value Reference Range Interpretation Comments POC-GLUCOSE METER 267 mg/dL 70-[address] [facility] 6720 (BEAKER) (test code = [facility] 1538) [address] HEMOGLOBIN [id number] 11:50:00 Test Item Value Reference Range Interpretation Comments HEMOGLOBIN A1C (BEAKER) (test code = 10.7 % 4.3-6.1 H 368) TROPONIN [id number] 11:42:00 Test Item Value Reference Range Interpretation [...] acidosis, acute neurological disease, and persistent tachyarrhythmia.POCT-GLUCOSE [id number] 09:41:00 Test Item Value Reference Range Interpretation Comments POC-GLUCOSE METER 228 mg/dL 70-[address] [facility] 6720 (BEAKER) (test code = [place] 1538) [address] RAD, CHEST, 1 VIEW, NON [id number] 07:41:00Reason for exam:->eval pneumoniaShould this be performed [...] represent atelectasis or pneumonitis. Signed: Zuleima Graff [facility] Verified Date/Time: 01/30/2017 07:41:41 ReadingLocation: [facility] B1 C013T Transitional Reading Room MAGNESIUM 2017-01-30 02:54:00 Test Item Value Reference Range Interpretation Comments MAGNESIUM (BEAKER) (test code = 1.6 mg/dL 1.6-2.6 627) BASIC METABOLIC [id number] 02:54:00 Test Item Value Reference Range Interpretation [...] FOR DIALYSIS PATIEN TS. RAPID INFLUENZA A&B [id number] 02:41:00 Test Item Value Reference Range Interpretation Comments RAPID INFLUENZA A AG (BEAKER) Negative Negative, Inconclusive (test code = 1622) RAPID INFLUENZA B AG (BEAKER) Negative Negative, Inconclusive (test code = 1623) CBC W/PLT COUNT & AUTO GHMMEEIYUBDN5598-01-06 02:07:00 Test Item Value Reference Range Interpretation [...] PERCENT (BEAKER) (test code = 2801) POCT-GLUCOSE [id number] 23:18:00 Test Item Value Reference Range Interpretation Comments POC-GLUCOSE METER 230 mg/dL 70-[address] [facility] 6720 (BEAKER) (test code = [place] 1538) [address] CHEM [id number] 10:03:003.1[facility] HermannCHEM [id number] 10:03:002.6 [facility] ZgaylhuVNMOMKXAIOJY6485-74-53 10:03:0011.1[facility] HermannELECTROLYTES 2016-09-12 10:03:004.1[facility] UdeniaiQLNKMHWAJVPH3621-62-29 10:03:63501Fxwfueyl CcodtlzRTYBZNVBIJFP1283-71-75 10:03:0025[facility] WspdwwbCFJBMLDDOEUL9320-60-35 10:03:0074[facility] ZdmiwllWSNUNGBMKRXU5338-22-94 10:03:0016[facility] [place] ZHMUHQWIGYQL0140-23-06 10:03:18890Sgfvvrdg RrshdkhFIWRBCTOJRAT3582-88-07 10:03:008.7[facility] ZvyvqqoROKPMCHAYCDM9744-57-79 10:03:001.00[facility] [place] CHSGRONZGTXO6385-15-06 10:03:86688Ekrpfsjw IitunybKELNKPEBSV9988-39-59 10:03:00 Normal (09/12/16 5:03 AM)[facility] QbcdiioYJPXXUVHZE3834-95-83 10:03:000.0[facility] JykifycCRWVIVYVJK4279-92-44 10:03:000.0[facility] LaptnbhHQEAMWMJGS8131-10-23 10:03:0017.0[facility] GrjahiuFGDXONNLCB7803-04-48 10:03:00Normal (09/12/16 5:03 AM) [facility] HqvjzxeQEIHUMDVYA7127-38-45 10:03:001.0[facility] HermannHEMATOLOGY 2016-09-12 10:03:0027.0[facility] IkaazspWRTDFBXACN4537-78-23 10:03:004.8[facility] ErtbticUAKBNCJMRZ8915-32-60 10:03:002.3[facility] XftutjlIZMVMARVTL2764-03-33 10:03:0055.0[facility] GjpnysjMDDEIAMEIZ5770-51-42 10:03:000.1[facility] FZGBFQOSLK7524-88-60 10:03:001.5[facility] RtwirgaYMUCOLCPAB0992-77-64 10:03:007.7 [facility] TinlxiqOYSLLBUUDJ8011-34-40 10:03:00 Test Item Value Reference Range Interpretation Comments MCH (test code = MCH) 29.8 pg 27.0-31.0 [facility] ZrvonfnTIGSDYQDXR4010-07-22 10:03:0088.2[facility] HermannHEMATOLOGY 2016-09-12 10:03:01756Jcnasyld YvhjzsqZWQEADQWNF8206-67-77 10:03:0014.7[facility] YzonrbtREZMFTYQTB3253-32-05 10:03:0033.8[facility] IdvffkfOVPTNTLERY6197-47-66 10:03:003.97[facility] YvmosfvXOGYURZFKN2162-94-59 10:03:0011.8[facility] [place] YCADHGJLDC4623-01-78 10:03:008.7[facility] TqielvnWTTEUAPMRI9721-33-38 10:03:00 35.0[facility] HermannCHEM OXESI5794-36-36 23:45:94109Hekycbli HermannCHEM PANEL 2016-09-11 23:45:003.8[facility] HermannCHEM RIDFJ8518-09-69 23:45:62491Ioetumfu HermannCHEM JLTIB9467-17-22 23:45:001.07[facility] HermannCHEM BARED3756-46-89 23:45:0013[facility] HermannCHEM KOSFF9757-70-01 23:45:64772Cckirpey HermannCHEM VWKNM5175-66-93 23:45:0068[facility] HermannCHEM LECKU0844-34-99 23:45:0013.8 [facility]annCHEM MLEEF1085-10-63 23:45:009.0[facility] HermannCHEM PANEL 2016-09-11 23:45:0026[facility] HermannBLOOD BANK ZGBREQQ6665-65-84 16:12:00 Negative (09/11/16 11:12 AM)[facility] HermannCHEM EOOGD1429-26-15 16:12:003.3 [facility]annCHEM RTIJW1603-87-39 16:12:001.6[facility] HermannELECTROLYTES 2016-09-11 16:12:009.7[facility] FlaficlSNOHRFUOHGYD0198-08-31 16:12:0069[facility] PyghdyjJXWDZTYFSLWZ0336-63-39 16:12:0028[facility] QpyhbjvKYLEBOEEEJRL3097-26-58 16:12:06223Mtlhhosm AcjhjjbIILAAZAXVCDZ3047-13-14 16:12:003.7[facility] CXOAKQXKUMDP6949-55-82 16:12:008.9[facility] SlftyvqSHJRVZAFGTSD0131-76-75 16:12:46248Uqqgxawr PucihuqQSUNMNQXTAFC8827-09-08 16:12:001.06[facility] EBSMYEWPZTMY0881-24-78 16:12:0015[facility] XtxjadnSTUGIPCSHEUD7281-32-64 16:12:00 87[facility] UchagbeDGZJMKAMKX7904-46-36 16:12:0033.1[facility] HermannHEMATOLOGY 2016-09-11 16:12:33083Ntdilkhu ZzmpynrWEBOEFHMIC7919-15-10 16:12:0011.0[facility] BjwwihzOQWCBZNNPY7647-94-15 16:12:007.5[facility] TsdjxyzSJNRUUVJEV2182-62-07 16:12:0089.2[facility] BfouosuRMCXNSPWUH7595-82-75 16:12:00 Test Item Value Reference Range Interpretation Comments MCH (test code = MCH) 29.5 pg 27.0-31.0 [facility] LnqebskDJMMTBXXWX4026-51-42 16:12:003.72[facility] HermannHEMATOLOGY 2016-09-11 16:12:0014.7[facility] TgdzaiyDJBAPPBPWB8512-91-70 16:12:008.2[facility] EegbkdpSVMTZXLSJQ3023-53-83 16:12:0033.1[facility] YfrlbtuIKWRNRBKTL0524-01-63 16:12:00 Test Item Value Reference Range Interpretation Comments PT (test code = PT) 16.6 s 12.0-14.7 [facility] RkyfdjeSAYHMQMQKQ3884-17-03 16:12:001.32[facility] HermannHEMATOLOGY 2016-09-11 16:12:00 Test Item Value Reference Range Interpretation Comments PTT (test code = PTT) 43.0 s 22.9-35.8 [facility] YktpblcONZSLTRNAV1101-32-01 16:12:001.6[facility] HermannHEMATOLOGY 2016-09-11 16:12:000.3[facility] DxvcqdaQSOQHQXYNN1666-89-01 16:12:001.7[facility] OqyhuclXZSKETMCHB2191-39-50 16:12:000.5[facility] IpljgbmHDCFPISWJS8311-10-90 16:12:004.5[facility] AyzxtbmUAFLPTVNMZ2547-27-61 16:12:003.4[facility] [place] FCETGMAGTM3297-82-11 16:12:0055.3[facility] AcjnkwgNBFLTEWVTD4316-13-52 16:12:00 21.2[facility] FjzlstiWBFWYNSCSM4741-05-91 16:12:0019.6[facility] HermannCHEM PANEL 2014-03-05 16:27:009.4[facility] HermannCHEM JCYIR6091-64-04 16:27:0026[facility] HermannCHEM WGXOC0994-43-31 16:27:0040[facility] HermannCHEM ITKQY6680-24-20 16:27:0045[facility] HermannCHEM FPFNB2638-44-09 16:27:71914Wlfdxfzx HermannCHEM UMAEY6301-74-41 16:27:004.4[facility] HermannCHEM NLLMU2492-31-88 16:27:91391 [facility] HermannCHEM WDVPH8663-07-57 16:27:001.7[facility] HermannCHEM PANEL 2014-03-05 16:27:04671Aizmkhmw HermannCHEM GGLVC1156-72-03 16:27:0011.4[facility] PnifxtvFPYHGVYJGQ3632-62-49 16:27:007.3[facility] ZfyxnmkETCWWULQPL6113-21-63 16:27:0033.9[facility] FdqoakaLDZUFGJXCU8316-97-89 16:27:54688Dbpyyecz Tino SUXIOMYXKE9219-76-17 16:27:0013.7[facility] FwmbmkpCHETKITEJT7129-86-49 16:27:00 14.6[facility] KeomapeZYQUWSUBYV6345-00-00 16:27:0040.4[facility] HermannHEMATOLOGY 2014-03-05 16:27:00 Test Item Value Reference Range Interpretation Comments MCH (test code = MCH) 31.5 pg 27.0-31.0 [facility] FcrewxsXZJPHHTXVJ5587-01-63 16:27:0092.8[facility] HermannHEMATOLOGY 2014-03-05 16:27:004.35[facility] OongxkrVJXZKIBZKO0846-25-42 16:27:009.4[facility] FoignwsEKTBSNGKOX8879-85-78 16:27:002.4[facility] VitxokzXONLVSNXFI6874-21-94 16:27:0014.6[facility] QidqlllZFGVBYTJCL0619-16-77 16:27:005.5[facility] BEYTDRWFDZ2885-61-74 16:27:0024.1[facility] TqexsjrUGBLGNXNGR1341-93-77 16:27:00 58.6[facility] HvpklsiXOQPLAOLWV0529-97-12 16:27:000.0[facility] HermannHEMATOLOGY 2014-03-05 16:27:000.2[facility] BbbbermJOHTAZIEPZ7948-18-24 16:27:000.3[facility] ZugeiycGNTFKXOQMV7209-63-51 16:27:001.4[facility] VluzeubMMVBUXCPQW3592-82-61 16:27:002.3[facility] Tino
--- NOTE | 2020-04-25 15:33 | RAD REPORT ---
EXAM DESCRIPTION: US - Lower Extremity Artery Uni Ltd - 04/25/2020 3:21 pm CLINICAL HISTORY: PAIN COMPARISON: No comparisons TECHNIQUE: Doppler evaluation of the right lower extremity arterial tree performed. Waveforms and ve locity values were obtained along with visual inspection. FINDINGS: Triphasic waveform pattern was seen in the right lower extremity from the common femoral a rtery to the distal superficial femoral artery. The popliteal, dorsalis pedis and posterior tibial ar teries show a monophasic waveform pattern. No focal flow restricting lesions seen between the superfi cial femoral and popliteal arteries.No occlusion or focal flow restricting process identifiable. Athe rosclerotic changes are identifiable. IMPRESSION: Mild to moderate severity right lower extremity peripheral arterial disease without occl usion or focal flow restricting lesions seen.
[2020-04-25] MEDS ORDERED: PIPER/TAZO/NS 3.375gm 3.375 GM/100 ML BAG ONE (15:53)
--- NOTE | 2020-04-25 16:05 | ER ---
Nurse's Notes [facility] Name: Ely Coley Age: 74 yrs Sex: Male : 1945 Arrival Date: 04/25/2020 Time: 14:03 Bed 7 Private MD: Diagnosis: Cellulitis of right toe Presentation: 04/25 14:24 Chief complaint: Patient states: R big toe cellulitis. Dr. Mayer sent us here and has ca1 talked with Dr. Avery. Says I need IV antibiotics and admit me. Started last week on February, hurt R foot, and it never got better. Coronavirus screen: Client denies travel out of the [place] in the last 14 days. At this time, the client does not indicate any symptoms associated with coronavirus-19. Ebola Screen: Patient negative for fever greater than or equal to 101.5 degrees Fahrenheit, and additional compatible Ebola Virus Disease symptoms Patient denies exposure to infectious person. Patient denies travel to an Ebola-affected area in the 21 days before illness onset. No symptoms or risks identified at this time. Initial Sepsis Screen: Does the patient meet any 2 criteria? No. Patient's initial sepsis screen is negative. Does the patient have a suspected source of infection? No. Patient's initial sepsis screen is negative. Risk Assessment: Do you want to hurt yourself or someone else? Patient reports no desire to harm self or others. Onset of symptoms was April 25, 2020. 14:24 Method Of Arrival: Wheelchair ca1 14:24 Acuity: MITCH 3 ca1 Historical: - Allergies: 14:27 steroids; ca1 - Home Meds: 14:27 Eliquis 2.5 mg Oral tab 1 tab 2 times per day [Active]; glipizide 5 mg Oral tr24 1 tab ca1 once daily [Active]; spironolactone 25 mg Oral tab 1 tab 2 times per day [Active]; 16:28 amiodarone 200 mg Oral tab 1 tab once daily [Active]; PreserVision AREDS 7,160-113-100 sv gahx-ww-qkfh Oral tab twice a day [Active]; Men's Multi-Vitamin oral tab daily [Active]; Stool Softener oral oral 2 times per day [Active]; Humalog Mix 75-25 100 unit/mL (75-25) Sub-Q susp use prn [Active]; - PMHx: 14:27 Atrial Fib; CVA; Diabetes - IDDM; Diabetes - NIDDM; Hypertension; Pacemaker; ca1 - PSHx: 14:27 Cholecystectomy; ca1 - Immunization history:: Client reports having NOT received the Covid vaccine. Pneumococcal vaccine is not up to date, Flu vaccine is not up to date. - Social history:: Smoking status: Patient/guardian denies using tobacco, the patient reports quitting approximately 30 years ago. Screenin:40 Abuse screen: Denies threats or abuse. Denies injuries from another. Nutritional sv screening: No deficits noted. Tuberculosis screening: No symptoms or risk factors identified. Fall Risk None identified. Assessment: 15:40 General: Appears in no apparent distress. comfortable, well developed, Behavior is sv calm, cooperative, appropriate for age. Pain: Complains of pain in plantar aspect of right first toe Pain currently is 5 out of 10 on a pain scale. Neuro: Level of Consciousness is awake, alert, obeys commands, Oriented to person, place, time, situation, Moves all extremities. Full function Gait is steady. Respiratory: Respiratory effort is even, unlabored, Respiratory pattern is regular, symmetrical. Derm: Skin is pink, warm \\T\\ dry. Wound noted plantar aspect of right first toe Wound is unstageable wound noted with swelling. Musculoskeletal: Amputation of partial left first toe. Swelling present in right leg and left leg. 16:00 Reassessment: Patient appears in no apparent distress at this time. No changes from sv previously documented assessment. Patient and/or family updated on plan of care and expected duration. Pain level reassessed. Patient is alert, oriented x 3, equal unlabored respirations, skin warm/dry/pink. 16:31 Reassessment: Patient appears in no apparent distress at this time. No changes from sv previously documented assessment. Patient and/or family updated on plan of care and expected duration. Pain level reassessed. Patient is alert, oriented x 3, equal unlabored respirations, skin warm/dry/pink. 17:30 Reassessment: Patient appears in no apparent distress at this time. No changes from sv previously documented assessment. Patient and/or family updated on plan of care and expected duration. Pain level reassessed. Patient is alert, oriented x 3, equal unlabored respirations, skin warm/dry/pink. 18:40 Reassessment: Patient appears in no apparent distress at this time. No changes from sv previously documented assessment. Patient and/or family updated on plan of care and expected duration. Pain level reassessed. Patient is alert, oriented x 3, equal unlabored respirations, skin warm/dry/pink. 19:42 General: Appears in no apparent distress. comfortable, Behavior is calm, cooperative, rr5 appropriate for age. Pain: Complains of pain in plantar aspect of right first toe Quality of pain is described as aching. Neuro: Level of Consciousness is awake, alert, obeys commands, Oriented to person, place, time. Cardiovascular: Capillary refill < 3 seconds Patient's skin is warm and dry. Respiratory: Airway is patent Respiratory effort is even, unlabored, Respiratory pattern is regular, symmetrical. GI: No signs and/or symptoms were reported involving the gastrointestinal system. : No signs and/or symptoms were reported regarding the genitourinary system. EENT: No signs and/or symptoms were reported regarding the EENT system. Derm: Skin temperature is warm Wound noted plantar aspect of right first toe. Musculoskeletal: Amputation of left first toe. Swelling present in right leg and left leg. 20:30 Reassessment: Patient appears in no apparent distress at this time. Patient is alert, rr5 oriented x 3, equal unlabored respirations, skin warm/dry/pink. Vital Signs: 14:24 BP 147 / 67; Pulse 70; Resp 16 S; Temp 97.2(TE); Pulse Ox 98% on R/A; Weight 108.86 kg ca1 (R); Height 6 ft. 0 in. (182.88 cm) (R); Pain 5/10; 16:00 BP 147 / 74; Pulse 69; Resp 16; Pulse Ox 100% ; sv 17:30 BP 149 / 72; Pulse 69; Resp 16; Pulse Ox 99% ; sv 18:15 BP 155 / 82; Pulse 69; Resp 18; Pulse Ox 100% ; sv 19:41 BP 149 / 65; Pulse 65; Resp 19; Pulse Ox 99% ; rr5 21:00 BP 141 / 75; Pulse 60; Resp 19; Pulse Ox 98% ; rr5 14:24 Body Mass Index 32.55 (108.86 kg, 182.88 cm) ca1 ED Course: 14:03 Patient arrived in ED. am2 14:26 Triage completed. ca1 14:27 Arm band placed on right wrist. ca1 14:33 Sudhakar Avery MD is Attending Physician. tw4 15:21 Lower Extremity Artery Uni Ltd US In Process Unspecified. EDMS 15:40 Patient has correct armband on for positive identification. Placed in gown. Bed in low sv position. Call light in reach. Side rails up X 1. Pulse ox on. NIBP on. Door closed. Warm blanket given. Head of bed elevated. 15:40 First set of blood cultures drawn by me. sv 15:50 Second set of blood cultures drawn by me. Inserted saline lock: 20 gauge in right sv forearm, using aseptic technique. Blood collected. Flushed right forearm with 2 ml normal saline. 16:03 Dacia Rasmussen RN is Primary Nurse. sv 16:05 Isaiah Hidalgo DO is Hospitalizing Provider. tw4 16:05 Basic Metabolic Panel Sent. sv 16:05 Amylase, Serum Sent. sv 16:05 Blood Culture Adult (2) Sent. sv 16:05 CBC with Diff Sent. sv 16:05 Ckmb Sent. sv 16:05 CPK Sent. sv 16:05 Lactate Sent. sv 17:13 Urine Dipstick--Ancillary (enter results) Sent. sv 17:13 COVID-19 : Document "Date of Symptom Onset" if Symptomatic. Sent. sv 17:18 CORONAVIRUS Sent. sv 19:04 Primary Nurse role handed off by Dacia Rasmussen RN mw2 19:07 Report given to Torri ROPER and Elfego ROPER. sv 19:42 No provider procedures requiring assistance completed. Patient admitted, IV remains in rr5 place. intact, No redness/swelling at site. 21:27 Elfego Maki RN is Primary Nurse. rr5 Administered Medications: 15:42 Not Given (Physician Discretion): Zosyn 3.375 grams IVPB once over 60 mins; (mix in NS ss 100 mL) 16:00 Drug: Cefepime 1 grams Route: IVPB; Rate: 200 ml/hr; Infused Over: 30 mins; Site: right sv forearm; 16:03 Follow up: Response: No adverse reaction; IV Status: Completed infusion; IV Intake: sv 10ml ; given IVP per pharmacy instructions 16:31 Drug: vancoMYCIN 1 grams Route: IVPB; Infused Over: 2 hrs; Site: right forearm; ss 18:13 Follow up: Response: No adverse reaction; IV Status: Completed infusion; IV Intake: sv 250ml Intake: 16:03 IV: 10ml; Total: 10ml. sv 18:13 IV: 250ml; Total: 260ml. sv Outcome: 16:05 Decision to Hospitalize by Provider. tw4 21:27 Admitted to Med/surg accompanied by nurse, via wheelchair, room 207, with chart, Report rr5 called to brittany :27 Condition: stable 21:27 Instructed on the need for admit. 21:28 Patient left the ED. mw2 Signatures: Dispatcher [employer] Dacia Lan RN RN sv Greer Zurtia RN RN Geovanna De Dios Sudhakar Lan MD MD tw4 Iva Palacios mw2 Elfego Maki RN RN rr5 Jaimee Mao RN RN ca1 Corrections: (The following items were deleted from the chart) 16: 14:27 Home Meds: amiodarone 200 mg Oral tab 1 tab 2 times per day; ca1 sv 16:28 14:27 Home Meds: Humulin 70/30 subcutaneous Sub-Q; ca1 sv 16:28 14:27 Home Meds: PreserVision AREDS 7,160-113-100 rzpb-kc-ansm Oral tab daily; ca1 sv
--- NOTE | 2020-04-25 16:06 | EDPHYS ---
Physician Documentation [facility] Name: Ely Coley Age: 74 yrs Sex: Male : 1945 Arrival Date: 04/25/2020 Time: 14:03 Bed 7 Private MD: ED Physician Sudhakar Avery HPI: 04/25 16:53 This 74 yrs old Male presents to ER via Wheelchair with complaints of right tw4 toe wound. 16:53 The patient presents with pain, that is chronic, nonhealing wound. The complaints tw4 affect the right foot. Context: The problem was sustained. Onset: The symptoms/episode began/occurred 1 month(s) ago. Associated signs and symptoms: The patient has no apparent associated signs or symptoms. The patient has not experienced similar symptoms in the past. Historical: - Allergies: 14:27 steroids; ca1 - Home Meds: 14:27 Eliquis 2.5 mg Oral tab 1 tab 2 times per day [Active]; glipizide 5 mg Oral tr24 1 tab ca1 once daily [Active]; spironolactone 25 mg Oral tab 1 tab 2 times per day [Active]; 16:28 amiodarone 200 mg Oral tab 1 tab once daily [Active]; PreserVision AREDS 7,160-113-100 sv oxxa-ko-pvwy Oral tab twice a day [Active]; Men's Multi-Vitamin oral tab daily [Active]; Stool Softener oral oral 2 times per day [Active]; Humalog Mix 75-25 100 unit/mL (75-25) Sub-Q susp use prn [Active]; - PMHx: 14:27 Atrial Fib; CVA; Diabetes - IDDM; Diabetes - NIDDM; Hypertension; Pacemaker; ca1 - PSHx: 14:27 Cholecystectomy; ca1 - Immunization history:: Client reports having NOT received the Covid vaccine. Pneumococcal vaccine is not up to date, Flu vaccine is not up to date. - Social history:: Smoking status: Patient/guardian denies using tobacco, the patient reports quitting approximately 30 years ago. ROS: 16:53 MS/extremity: Positive for erythema, pain, swelling, of the plantar aspect of right tw4 first toe. 16:53 Constitutional: Negative for fever, chills, and weight loss, Eyes: Negative for injury, pain, redness, and discharge, Cardiovascular: Negative for chest pain, palpitations, and edema, Respiratory: Negative for shortness of breath, cough, wheezing, and pleuritic chest pain, Abdomen/GI: Negative for abdominal pain, nausea, vomiting, diarrhea, and constipation, Back: Negative for injury and pain, Skin: Negative for injury, rash, and discoloration, Neuro: Negative for headache, weakness, numbness, tingling, and seizure. 16:53 MS/extremity: Positive for erythema, pain, swelling, tenderness. Exam: 17:13 Constitutional: This is a well developed, well nourished patient who is awake, alert, tw4 and in no acute distress. Head/Face: Normocephalic, atraumatic. Chest/axilla: Normal chest wall appearance and motion. Nontender with no deformity. No lesions are appreciated. Cardiovascular: Regular rate and rhythm with a normal S1 and S2. No gallops, murmurs, or rubs. Normal PMI, no JVD. No pulse deficits. Respiratory: Lungs have equal breath sounds bilaterally, clear to auscultation and percussion. No rales, rhonchi or wheezes noted. No increased work of breathing, no retractions or nasal flaring. Abdomen/GI: Soft, non-tender, with normal bowel sounds. No distension or tympany. No guarding or rebound. No evidence of tenderness throughout. Back: No spinal tenderness. No costovertebral tenderness. Full range of motion. 17:13 Musculoskeletal/extremity: Extremities: noted in the plantar aspect of right first toe: pain. Vital Signs: 14:24 BP 147 / 67; Pulse 70; Resp 16 S; Temp 97.2(TE); Pulse Ox 98% on R/A; Weight 108.86 kg ca1 (R); Height 6 ft. 0 in. (182.88 cm) (R); Pain 5/10; 16:00 BP 147 / 74; Pulse 69; Resp 16; Pulse Ox 100% ; sv 17:30 BP 149 / 72; Pulse 69; Resp 16; Pulse Ox 99% ; sv 18:15 BP 155 / 82; Pulse 69; Resp 18; Pulse Ox 100% ; sv 19:41 BP 149 / 65; Pulse 65; Resp 19; Pulse Ox 99% ; rr5 21:00 BP 141 / 75; Pulse 60; Resp 19; Pulse Ox 98% ; rr5 14:24 Body Mass Index 32.55 (108.86 kg, 182.88 cm) ca1 MDM: 14:33 Patient medically screened. tw4 17:18 Differential diagnosis: fracture. Data reviewed: vital signs, nurses notes. Data tw4 interpreted: Pulse oximetry: Interpretation: normal. Counseling: I had a detailed discussion with the patient and/or guardian regarding: the historical points, exam findings, and any diagnostic results supporting the discharge/admit diagnosis. Special discussion: I discussed with the patient/guardian in detail that at this point there is no indication for admission to the hospital. It is understood, however, that if the symptoms persist or worsen the patient needs to return immediately for re-evaluation. 04/25 14:19 Order name: Amylase, Serum tw 04/25 14:19 Order name: Basic Metabolic Panel [facility] 04/25 14:19 Order name: Blood Culture Adult (2) tw 04/25 14:19 Order name: CBC with Diff tw 04/25 14:19 Order name: Ckmb tw 04/25 14:19 Order name: CPK tw 04/25 14:19 Order name: Lactate tw 04/25 14:19 Order name: LFT's [facility] 04/25 14:19 Order name: Lipase tw 04/25 14:19 Order name: Procalcitonin [facility] 04/25 14:19 Order name: Protime (+inr) tw 04/25 14:19 Order name: Ptt, Activated tw 04/25 14:19 Order name: Urine Microscopic Only tw 04/25 14:21 Order name: Amylase [facility] 04/25 14:21 Order name: Basic Metabolic Panel [facility] 04/25 14:21 Order name: Blood Culture [facility] 04/25 14:21 Order name: CBC with Automated Diff [facility] 04/25 14:21 Order name: CKMB Creatine Kinase MB [facility] 04/25 14:21 Order name: Creatine Phosphokinase [facility] 04/25 14:21 Order name: Lactate [facility] 04/25 14:24 Order name: Lower Extremity Artery Uni Ltd US; Complete Time: 16:17 [facility] 04/25 16:27 Order name: COVID-19 : Document "Date of Symptom Onset" if Symptomatic. 04/25 16:45 Order name: Urine Dipstick--Ancillary (enter results) 04/25 17:02 Order name: Urine Dipstick-Ancillary [facility] 04/25 17:18 Order name: CORONAVIRUS EDND 04/25 18:12 Order name: SARS-COV-2 RT PCR [facility] 04/25 14:19 Order name: Cardiac monitoring; Complete Time: 16:43 tw4 04/25 14:19 Order name: IV Saline Lock - Large Bore; Complete Time: 16:05 tw4 04/25 14:19 Order name: Labs collected and sent; Complete Time: 16:05 tw4 04/25 14:19 Order name: O2 Per Protocol; Complete Time: 16:05 tw4 04/25 14:19 Order name: O2 Sat Monitoring; Complete Time: 16:05 tw4 04/25 14:19 Order name: Urine Dipstick-Ancillary (obtain specimen); Complete Time: 16:43 tw4 Administered Medications: 15:42 Not Given (Physician Discretion): Zosyn 3.375 grams IVPB once over 60 mins; (mix in NS ss 100 mL) 16:00 Drug: Cefepime 1 grams Route: IVPB; Rate: 200 ml/hr; Infused Over: 30 mins; Site: right sv forearm; 16:03 Follow up: Response: No adverse reaction; IV Status: Completed infusion; IV Intake: sv 10ml ; given IVP per pharmacy instructions 16:31 Drug: vancoMYCIN 1 grams Route: IVPB; Infused Over: 2 hrs; Site: right forearm; ss 18:13 Follow up: Response: No adverse reaction; IV Status: Completed infusion; IV Intake: sv 250ml Disposition: 04/25/20 16:05 Hospitalization ordered by Isaiah Hidalgo for Inpatient Admission. Preliminary diagnosis is Cellulitis of right toe. - Bed requested for Telemetry/MedSurg (Inpatient). - Status is Inpatient Admission. mw2 - Condition is Stable. - Problem is an ongoing problem. - Symptoms are unchanged. Signatures: [facility] Dacia Rasmussen, Greer Busch RN, RN RN ss Garcia, Cindy, RN RN cg Aguilar, Jose, RN RN Sudhakar Alfaro MD MD tw4 Iva Palacios mw2 Jaimee Mao RN RN ca1 Corrections: (The following items were deleted from the chart) 16:05 14:19 Accucheck ordered. tw4 sv 16:28 14:27 Home Meds: amiodarone 200 mg Oral tab 1 tab 2 times per day; ca1 sv 16:28 14:27 Home Meds: Humulin 70/30 subcutaneous Sub-Q; ca1 sv 16:28 14:27 Home Meds: PreserVision AREDS 7,160-113-100 ksml-pd-cquz Oral tab daily; ca1 sv 18:34 16:05 Hospitalization Ordered by Isaiah Hidalgo DO for Inpatient Admission. Preliminary ja1 diagnosis is Cellulitis of right toe. Bed requested for Telemetry/MedSurg (Inpatient). Status is Inpatient Admission. Condition is Stable. Problem is an ongoing problem. Symptoms are unchanged. tw4 20:33 18:34 04/25/2020 16:05 Hospitalization Ordered by Isaiah Hidalgo DO for Inpatient cg Admission. Preliminary diagnosis is Cellulitis of right toe. Bed requested for Telemetry/MedSurg (Inpatient). Status is Inpatient Admission. Condition is Stable. Problem is an ongoing problem. Symptoms are unchanged. ja1 21:28 20:33 04/25/2020 16:05 Hospitalization Ordered by Isaiah Hidalgo DO for Inpatient mw2 Admission. Preliminary diagnosis is Cellulitis of right toe. Bed requested for Telemetry/MedSurg (Inpatient). Status is Inpatient Admission. Condition is Stable. Problem is an ongoing problem. Symptoms are unchanged. cg
[2020-04-25 16:09] LABS: Absolute Lymphocytes (CBC) 1.8 K/uL (0.7-4.9); Basophils % 0.7 % (0-1.3); Lymphocytes % 21.3 % (15.3-44.8); MPV 7.4 fL (7.6-11.3); RBC Red Blood Cell Count 3.41 M/uL (4.33-5.43)
[2020-04-25] MEDS ORDERED: CEFEPIME/SWI 1gm 10 ML ONE (16:15)
[2020-04-25 16:19] LABS: Protime INR 1.6
[2020-04-25 16:38] LABS: ALT/SGPT 18 U/L (12-78); AST/SGOT 14 U/L (15-37); Albumin 3.2 g/dL (3.4-5.0); Amylase 22 U/L (25-115); BUN Blood Urea Nitrogen 24 mg/dL (7-18); Bicarbonate 28 mmol/L (21-32); Bilirubin Direct 0.3 mg/dL (0-0.2); Bilirubin Total 0.6 mg/dL (0.2-1.0); CKMB Creatine Kinase MB 1.2 ng/mL (0.3-3.6); Creatine Phosphokinase 40 U/L (39-308); Glucose Level 64 mg/dL (74-106); Lipase 29 U/L (73-393); Potassium 4.3 mmol/L (3.5-5.1); Protein, Total 7.7 g/dL (6.4-8.2); Sodium Level 142 mmol/L (136-145)
[2020-04-25 17:00] LABS: Urine RBC NONE SEEN /HPF (NONE SEEN)
[2020-04-25] MEDS ORDERED: VANCOMYCIN/NS 1 gm 1 GM/250 ML BAG IVPB ONE (17:00)
[2020-04-25 17:01] LABS: Urine Bacteria NONE SEEN /HPF (NONE SEEN)
[2020-04-25 17:01] LABS: Urine Blood NEGATIVE (NEG); Urine Glucose NEGATIVE (NEG); Urine Protein NEGATIVE (NEG); Urine Specific Gravity 1.015 (1.005-1.030); Urine pH 6.5 (5.0-7.0)
--- NOTE | 2020-04-25 17:22 | P.HP ---
Certification for Inpatient Patient admitted to: Inpatient With expected LOS: >2 Midnights Patient will require the following post-hospital care: Home Health Services Practitioner: I am a practitioner with admitting privileges, knowledge of patient current condition, hospital course, and medical plan of care. Services: Services provided to patient in accordance with Admission requirements found in Title 42 Section 412.3 of the Code of Federal Regulations Patient History Date of Service: 04/25/20 Primary Care Provider: Dr. Velásquez; Surgery-Dr. Mayer Reason for admission: Failed outpatient therapy History of Present Illness: 74-year-old male with history of atrial fibrillation with pacemaker, CVA, diabetes mellitus type 2, hypertension, and chronic renal disease. Patient reports pain, swelling to the right great toe. He has been to the ER multiple times over the past month. He has been sent home with antibiotic therapy without any significant improvement. Patient denies any fever, chills, chest pain or shortness of breath. Pain and erythema noted. There is a ulcer to the medial aspect of that right great toe. He went to his surgeon today to get evaluated. Surgeon was concern for osteomyelitis. Patient was sent to the ER for further evaluation and treatment. In ER patient was evaluated. White count 8.0, hemoglobin 10.9. Platelet count 209. Pro calcitonin 0.07. Sodium 142, potassium 4.3. BN of 24, creatinine 1.23 with a GFR 57. Glucose 64. Patient was admitted for further evaluation and treatment. When I saw the patient ER, patient appeared stable. He does not appear septic. Patient admitted for treatment. Allergies metoprolol Adverse Reaction (Verified 12/21/17 14:02) Shortness of breath steroids Allergy (Unknown, Uncoded 10/19/17 02:14) Unknown Home medications list reviewed: Yes Home Medications: Amiodarone HCl [Cordarone*] 200 mg PO Q12H 10/19/17 Apixaban [Eliquis *] 2.5 mg PO BID 10/19/17 Spironolactone [Aldactone*] 25 mg PO BID 10/19/17 glipiZIDE [Glipizide] 5 mg PO DAILY 10/19/17 Insulin Glargine Human [Lantus*] 10 units SQ DAILY WITH BREAKFAST #1 vial 10/21/17 Furosemide [Lasix*] 20 mg PO BID 11/26/17 - Past Medical/Surgical History Diabetic: Yes -: History CVA -: Atrial fibrillation now with pacemaker -: DM -: HTN -: History of blood clot in the right arm -: GERD -: Moderate pulmonary hypertension -: CHF, diastolic dysfunction -: R. total knee replacement -: kristian. cataract sx -: Right thigh staph inf. -: L. big toe amputated -: Back sx Psychosocial/ Personal History: The patient is . - Family History Mother -: Heart disease Father -: Heart disease Brother -: Heart disease, Hypertension, Diabetes, Cancer - Social History Smoking Status: Never smoker Alcohol use: No CD- Drugs: No Caffeine use: Yes Place of Residence: Home Review of Systems General: As per HPI Eyes: Unremarkable ENT: Unremarkable Respiratory: Unremarkable Cardiovascular: Unremarkable Gastrointestinal: Unremarkable Genitourinary: Unremarkable Musculoskeletal: As per HPI Integumentary: As per HPI Neurological: Unremarkable Lymphatics: Unremarkable Physical Examination - Physical Exam General: Alert, In no apparent distress, Oriented x3, Cooperative HEENT: Atraumatic, Normocephalic, Mucous membr. moist/pink Neck: Supple Respiratory: Clear to auscultation bilaterally, Normal air movement Cardiovascular: Normal pulses, Regular rate/rhythm Gastrointestinal: Normal bowel sounds, Soft and benign, Non-distended, No masses, No rebound, No guarding Musculoskeletal: No warmth Integumentary: Tenderness/swelling (Pain, swelling noted to the right great toe. Dry necrotic ulcer noted to the medial aspect of the great toe. Ulcer is about the size of a dime.) Neurological: Normal speech, Normal strength at 5/5 x4 extr, Normal tone, Normal affect - Studies Laboratory Data (last 24 hrs) 04/25/20 15:50: PT 18.5 H, INR 1.60, APTT 38.4 H 04/25/20 15:50: WBC 8.50 D, Hgb 10.9 L, Hct 33.0 L, Plt Count 209 04/25/20 15:50: Sodium 142, Potassium 4.3, BUN 24 H, Creatinine 1.23, Glucose 64 L, Total Bilirubin 0.6, AST 14 L, ALT 18, Amylase 22 L, Lipase 29 L Assessment and Plan - Plan Impression: Diabetic foot ulcer to the right great toe, failed outpatient therapy, suspect osteomyelitis Diabetes mellitus type 2 Hypertension Chronic renal disease stage 3 History of atrial fibrillation now with pacemaker Chronic diastolic CHF History of CVA Plan: Diabetic foot ulcer to the right great toe, failed outpatient therapy, suspect osteomyelitis: Patient will be admitted for further evaluation and treatment. Will start vancomycin and cefepime. Will obtain x-ray to evaluate further. Will try to obtain MRI of the right foot to evaluate for osteomyelitis. Will need to verify if his pacemaker is MRI compatible. If not patient will require bone scan. Will discuss further with surgery. Will keep the patient NPO after midnight. Will hold his Eliquis in preparation for surgery. If osteomyelitis is noted then patient will likely require long-term IV antibiotic therapy. This would require PICC line. If positive patient would like to have long-term with IV antibiotic therapy at home. Will wait on findings. Diabetes mellitus type 2: Will monitor this closely. Accu-Cheks in place. Hypertension: Restart home medication Chronic renal disease stage 3: Will monitor and adjust appropriately. Pharmacy to adjust medications History of atrial fibrillation now with pacemaker: Hold Eliquis in preparation for surgery. Chronic diastolic CHF: Continue diuretic therapy. History of CVA: Continue home medication. Discharge Plan: Home Plan to discharge in: Greater than 2 days - Advance Directives Does patient have a Living Will: No Does patient have a Durable POA for Healthcare: Yes - Code Status/Comfort Care Code Status Assessed: Yes (Patient is full code) Time Spent Managing Pts Care (In Minutes): 55
[2020-04-25 19:21] LABS: Alkaline Phosphatase ND U/L (45-117)
[2020-04-25] MEDS ORDERED: ACETAMINOPHEN 500 MG TAB PO PRN (21:19)
[2020-04-25] MEDS ORDERED: CEFEPIME 1 GM/VIAL IV SCH (21:19)
[2020-04-25] MEDS ORDERED: ONDANSETRON 4 MG/2 ML VIAL IV PRN (21:19)
[2020-04-25] MEDS: INSULIN -REGULAR HUMAN 50 UNIT/0.5 ML ML SQ SCH (21:19)
[2020-04-25] MEDS ORDERED: TRAMADOL HCL 50 MG TAB PO PRN (21:19)
[2020-04-25] MEDS: CEFEPIME/SWI 1gm 10 ML IV SCH (21:45)
[2020-04-25] MEDS ORDERED: VANCOMYCIN 1.25 GM in NA CHLORIDE 0.9% 250 ML IVPB SCH (22:00)
[2020-04-25] MEDS: SPIRONOLACTONE 25 MG TABLET PO SCH (22:25)
[2020-04-25] MEDS ORDERED: VANCOMYCIN/NS 1 gm 1 GM/250 ML BAG IV ONE (22:30)
[2020-04-25 22:53] VITALS: BMI 32.5
[2020-04-25] MEDS ORDERED: VANCOMYCIN 1 GM/VIAL ONE (23:00)
[2020-04-25] MEDS ORDERED: NA CHLORIDE 0.9% 250 ML ONE (23:11)
[2020-04-26 05:44] LABS: Absolute Lymphocytes (CBC) 1.2 K/uL (0.7-4.9); Hematocrit 32.4 % (39.6-49.0); Lymphocytes % 16.3 % (15.3-44.8); MPV 7.6 fL (7.6-11.3); RBC Red Blood Cell Count 3.34 M/uL (4.33-5.43)
[2020-04-26 06:10] LABS: Magnesium 1.9 mg/dL (1.8-2.4)
[2020-04-26 06:11] LABS: Urine Appearance CLEAR; Urine Bilirubin NEGATIVE (NEG); Urine Blood NEGATIVE (NEG); Urine Color YELLOW; Urine Glucose NEGATIVE (NEG); Urine Protein NEGATIVE (NEG); Urine Urobilinogen 0.2 mg/dL (0.2-1.0)
[2020-04-26 06:13] LABS: Urine Microscopic Reflex NO UMIC
[2020-04-26] MEDS: INSULIN -REGULAR HUMAN 50 UNIT/0.5 ML ML SQ SCH ×4 (07:30→21:00)
[2020-04-26] MEDS ORDERED: PNEUMOCOCCAL VACCINE 0.5 ML IMVAC ONE (08:00)
[2020-04-26] MEDS ORDERED: INFLUENZA VACCINE (for 3y+) 0.5 ML DOSE IMVAC ONE (08:00)
[2020-04-26] MEDS: HYDROCODONE/APAP 7.5/325 MG TAB PO PRN ×2 (08:44→16:31)
[2020-04-26] MEDS: CEFEPIME/SWI 1gm 10 ML IV SCH ×2 (08:45→21:13)
[2020-04-26] MEDS ORDERED: DOCUSATE NA 100 MG CAP PO SCH (09:00)
[2020-04-26] MEDS ORDERED: AMIODARONE HCL 200 MG TAB PO SCH (09:00)
--- NOTE | 2020-04-26 12:36 | RAD REPORT ---
EXAM DESCRIPTION: RAD - Foot Right 3 View - 04/25/2020 11:40 pm CLINICAL HISTORY: Foot pain and swelling FINDINGS: No fracture or dislocation is seen. Hallux valgus deformity. Vascular calcifications are n oted. No bony destructive lesions seen within first phalanx.
[2020-04-26 12:37] LABS: Blood Morphology Comment NOT SEEN (NOT SEEN); Platelet Estimate ADEQ; White Blood Cell Scan OK (OK)
[2020-04-26] MEDS: SPIRONOLACTONE 25 MG TABLET PO SCH ×2 (13:22→21:14)
[2020-04-26] MEDS: FOLIC ACID 1 MG TABLET PO SCH (13:22)
--- NOTE | 2020-04-26 14:17 | P.PN ---
Subjective Date of Service: 04/26/20 Primary Care Provider: Dr. Velásquez; Surgery-Dr. Mayer Chief Complaint: Failed outpatient therapy Subjective: Doing well Physical Examination - Vital Signs Temperature: 98.6 F Blood Pressure: 124/57 Pulse: 69 Respirations: 16 Pulse Ox (%): 97 - Studies Laboratory Data (last 24 hrs) 04/25/20 15:50: PT 18.5 H, INR 1.60, APTT 38.4 H 04/25/20 15:50: WBC 8.50 D, Hgb 10.9 L, Hct 33.0 L, Plt Count 209 04/25/20 15:50: Sodium 142, Potassium 4.3, BUN 24 H, Creatinine 1.23, Glucose 64 L, Total Bilirubin 0.6, AST 14 L, ALT 18, Alkaline Phosphatase ND, Amylase 22 L, Lipase 29 L Assessment & Plan Discharge Plan: Home Plan to discharge in: 48 Hours Physician Review Additional Text: Physical Exam: Alert cooperative H: regular rate. L: clear to auscutation. AB: soft, NT, ND EXT: Right great toe ulcer noted. Erythema improved. No exudate. Impression: Diabetic foot ulcer to the right great toe, failed outpatient therapy, suspect osteomyelitis Diabetes mellitus type 2 Hypertension Chronic renal disease stage 3 History of atrial fibrillation now with pacemaker Chronic diastolic CHF History of CVA Plan: Diabetic foot ulcer to the right great toe, failed outpatient therapy, suspect osteomyelitis: Continue with vancomycin and cefepime. MRI is not compatible with pacemaker. Will get bone scan. Will discuss further with surgery. Will keep the patient NPO after midnight. Will hold his Eliquis in preparation for surgery. If osteomyelitis is noted then patient will likely require long-term IV antibiotic therapy. This would require PICC line. If positive patient would like to have shelter with IV antibiotic therapy at home. Will wait on findings. Diabetes mellitus type 2: Will monitor this closely. Accu-Cheks in place. Hypertension: Continue medication Chronic renal disease stage 3: Will monitor and adjust appropriately. Pharmacy to adjust medications History of atrial fibrillation now with pacemaker: Hold Eliquis in preparation for surgery. Chronic diastolic CHF: Continue diuretic therapy. History of CVA: Continue home medication. Time Spent Managing Pts Care (In Minutes): 55
[2020-04-26] MEDS: ENOXAPARIN 40 MG/0.4 ML SQ SCH (16:31)
[2020-04-26] MEDS ORDERED: VANCOMYCIN 2 GM in NA CHLORIDE 0.9% 500 ML IVPB SCH ×2 (17:00→22:00)
--- NOTE | 2020-04-26 17:04 | CON ---
Date of Consultation: 04/25/2020 Reason: Infected wound, right great toe. History Of Present Illness: The patient is a 74-year-old gentleman with multiple medical problems, benita alvarez came to my office yesterday with a 2-month history of an infected wound, increasing pain. He was treated with oral antibiotic, went to ER several times, was discharged on oral antibiotics, but he wa s not getting better. His pain was worse and he had redness and swelling, came to my office. After I evaluated him, I suspected the patient may have osteo and the patient required IV antibiotics as he had failed outpatient oral antibiotic therapy. Therefore, he was advised to go to the ER. He was a dmitted and workup was begun and I was consulted. He is awake, alert, and after 24 hours of IV antib iotics, he states that his foot feels much better, swelling and redness are improving and the pain is much better. No sore throat, runny nose, cough, headaches, or dizziness. No chest pain. No fever or chills. No purulent discharge from the wound itself. Review of Systems: Otherwise unremarkable. Past Medical History: Significant for stroke, AFib, diabetes type 2, hypertension, history of DVT in the right arm, GERD, pulmonary hypertension, CHF. Past Surgical History: Right total knee replacement, bilateral cataract surgery, right thigh staph i nfection I and D, back surgery, left big toe amputation. Allergies: METOPROLOL AND STEROIDS. Social History: The patient does not smoke. Does not drink alcohol. Family History: Significant for heart disease, hypertension, diabetes and unknown type of cancer. Physical Examination: Vital signs: Stable. He is currently afebrile. General: He is awake, alert, and oriented x3. Head and neck: Cranial nerves 2 through 12 are grossly within normal limits. No neck masses. No JV D. Throat is clear. Neck is supple. Chest: Clear. Heart: S1, S2. Abdomen: Soft. Extremities: Diminished dorsalis pedis and posterior tibial pulses. There is some lymphedema presen t in the lower extremities, equal bilaterally. On the right great toe, there is some erythema and ed cecille, but it is improved since yesterday and the forefoot as well and there is an ulcer on the plantar aspect of the right great toe, approximately 2 x 1 cm with a necrotic eschar, which probably needs d ebridement in the near future. There is no purulent discharge present. Laboratory Data: Reviewed. His white count is 7.1. His INR is 1.6. His chemistry reviewed. His D oppler was done yesterday and shows [id number]-demrruqi severity right lower extremity peripheral arteri al disease without occlusion or focal flow restriction lesions seen and his MRI could not be done bec ause he has a pacemaker, so he is scheduled for a bone scan tomorrow. Assessment: Infected wound with cellulitis, right great toe. Recommend rule out osteo. Recommendations: Continue IV antibiotics. At this time, we will await the results of the bone scan, following which, we will can probably debride the wound while he is in the hospital and the duration of IV antibiotics will be determined on whether the patient has osteomyelitis or not. We will caref ully follow this patient while in the hospital. /MODL Voice ID: [id number] Report ID: [id number]
[2020-04-26] MEDS: VANCOMYCIN 2 GM in NA CHLORIDE 0.9% 500 ML IVPB SCH (18:29)
[2020-04-26] MEDS: AMIODARONE HCL 200 MG TAB PO SCH (21:14)
[2020-04-26] MEDS: DOCUSATE NA 100 MG CAP PO SCH (21:14)
[2020-04-27 06:18] LABS: Absolute Lymphocytes (CBC) 1.8 K/uL (0.7-4.9); Basophils % 0.9 % (0-1.3); Hematocrit 30.6 % (39.6-49.0); MPV 7.1 fL (7.6-11.3); RBC Red Blood Cell Count 3.17 M/uL (4.33-5.43)
[2020-04-27 06:45] LABS: Potassium 4.3 mmol/L (3.5-5.1)
[2020-04-27] MEDS: INSULIN -REGULAR HUMAN 50 UNIT/0.5 ML ML SQ SCH ×4 (07:30→20:14)
[2020-04-27] MEDS: CEFEPIME/SWI 1gm 10 ML IV SCH ×2 (08:10→20:12)
[2020-04-27] MEDS: FOLIC ACID 1 MG TABLET PO SCH (08:11)
[2020-04-27] MEDS: SPIRONOLACTONE 25 MG TABLET PO SCH ×2 (08:11→20:13)
--- NOTE | 2020-04-27 08:42 | P.PN ---
Subjective Date of Service: 04/27/20 Primary Care Provider: Dr. Velásquez; Surgery-Dr. Mayer Chief Complaint: Failed outpatient therapy Subjective: Improving, Doing well Physical Examination - Vital Signs Temperature: 98.3 F Blood Pressure: 122/57 Pulse: 74 Respirations: 17 Pulse Ox (%): 95 Assessment & Plan Discharge Plan: Home Plan to discharge in: 24 Hours Physician Review Additional Text: Physical Exam: Alert cooperative H: regular rate. L: clear to auscutation. AB: soft, NT, ND EXT: Right great toe ulcer noted. No significant erythema noted. No swelling noted. Pain improved peer. Impression: Diabetic foot ulcer to the right great toe, failed outpatient therapy, suspect osteomyelitis Diabetes mellitus type 2 Hypertension Chronic renal disease stage 3 History of atrial fibrillation now with pacemaker Chronic diastolic CHF History of CVA Plan: Diabetic foot ulcer to the right great toe, failed outpatient therapy, suspect osteomyelitis: Patient has done well with IV antibiotic therapy. No significant erythema or swelling. Pain improved. Continue with vancomycin and cefepime. MRI was not compatible with pacemaker. Bone scan has been ordered. Await results today. If both scan does not show osteomyelitis then will consider possible discharge with oral antibiotic therapy. If positive patient will require long-term IV antibiotic therapy. Await findings. Case discussed with surgery. Diabetes mellitus type 2: Will monitor this closely. Accu-Cheks in place. Hypertension: Continue medication Chronic renal disease stage 3: Will monitor and adjust appropriately. Pharmacy to adjust medications History of atrial fibrillation now with pacemaker: Anticipate no need for surgery. Restart Eliquis. Chronic diastolic CHF: Continue diuretic therapy. History of CVA: Continue home medication. Time Spent Managing Pts Care (In Minutes): 55
[2020-04-27] MEDS: DOCUSATE NA 100 MG CAP PO SCH ×2 (09:00→20:13)
[2020-04-27] MEDS: AMIODARONE HCL 200 MG TAB PO SCH ×2 (09:00→20:12)
--- NOTE | 2020-04-27 09:59 | PN ---
Date of Progress Note: 04/27/2020 Subjective: The patient is awake and alert with minimum amount of pain. No fever or chills. Bone s can is pending Physical Examination: Vital Signs: Stable. Afebrile. Skin: No significant change. Still with minimal amount of erythema and edema. There is a necrotic eschar on the plantar aspect of the great toe. Assessment: Infected wound with cellulitis of right great toe, rule out osteomyelitis. Recommendations: I think the patient should get a PICC line. He will need at least 2 weeks of IV an tibiotics if he does not have osteo and 6 weeks of IV antibiotics if he does. The reason for this is because he has failed outpatient oral antibiotics for 2 months with progressively worsening of his s ymptoms and he has peripheral vascular disease and oral dosing of antibiotics may not suffice for his condition. This was discussed in detail with Dr. Hidalgo. In the meanwhile, we will go ahead and de bride the wound tomorrow morning. The patient understands the risks, benefits, and alternatives, and agrees to procedure. We will do cultures at this time, following which we will institute local woun d care. /MODL Voice ID: [id number] Report ID: [id number]
--- NOTE | 2020-04-27 11:47 | RAD REPORT ---
EXAM DESCRIPTION: NM - Bone Imaging Three Phase - 04/27/2020 10:59 am CLINICAL HISTORY: Right foot, evaulate for osteo COMPARISON: Lower Extremity Artery Uni Ltd dated 04/25/2020; Foot Right 3 View dated 04/25/2020 TECHNIQUE: Three-phase bone scan was performed. Flow, pool and delayed images were performed of both feet and ankles. The patient was administered 26.2 millicuries technetium MDP. FINDINGS: There is symmetric flow to both feet and ankles. Slight increased pool and delayed radiotr acer is seen involving the distal aspect of the left foot and left heel region. There is no indicatio n of osteomyelitis involving the right toe region. IMPRESSION: No evidence of osteomyelitis involving the right foot.
[2020-04-27] MEDS: VANCOMYCIN 2 GM in NA CHLORIDE 0.9% 500 ML IVPB SCH (11:51)
[2020-04-27] MEDS: HYDROCODONE/APAP 7.5/325 MG TAB PO PRN (16:30)
[2020-04-27] MEDS: ENOXAPARIN 40 MG/0.4 ML SQ SCH (16:30)
[2020-04-28] MEDS: VANCOMYCIN 2 GM in NA CHLORIDE 0.9% 500 ML IVPB SCH (05:28)
[2020-04-28 06:24] LABS: Absolute Lymphocytes (CBC) 1.9 K/uL (0.7-4.9); Basophils % 0.9 % (0-1.3); Hematocrit 33.2 % (39.6-49.0); Lymphocytes % 18.5 % (15.3-44.8); MPV 7.3 fL (7.6-11.3); RBC Red Blood Cell Count 3.43 M/uL (4.33-5.43)
[2020-04-28 07:12] LABS: Magnesium 2.1 mg/dL (1.8-2.4); Potassium 4.3 mmol/L (3.5-5.1)
[2020-04-28] MEDS: INSULIN -REGULAR HUMAN 50 UNIT/0.5 ML ML SQ SCH ×4 (07:30→21:16)
[2020-04-28] MEDS ORDERED: NA CHLORIDE 0.9% 1,000 ML ONE (07:54)
[2020-04-28] MEDS ORDERED: LIDOCAINE 2% MPF 5 ML VIAL ONE (08:05)
[2020-04-28] MEDS ORDERED: FENTANYL CITR 100 MCG/2 ML ONE (08:05)
[2020-04-28] MEDS ORDERED: propofoL 200 MG/20 ML VIAL IV ONE (08:05)
[2020-04-28] MEDS ORDERED: LIDOCAINE 1% MPF 30 ML VIAL ONE (08:06)
[2020-04-28] MEDS ORDERED: ONDANSETRON 4 MG/2 ML VIAL ONE (08:06)
[2020-04-28] MEDS ORDERED: KETOROLAC 30 MG/ML INJ ONE (08:06)
[2020-04-28] MEDS: SPIRONOLACTONE 25 MG TABLET PO SCH ×2 (08:19→21:14)
[2020-04-28] MEDS: FOLIC ACID 1 MG TABLET PO SCH (08:19)
[2020-04-28] MEDS: DOCUSATE NA 100 MG CAP PO SCH ×2 (08:19→21:13)
[2020-04-28] MEDS: AMIODARONE HCL 200 MG TAB PO SCH ×2 (08:19→21:15)
[2020-04-28] MEDS: CEFEPIME/SWI 1gm 10 ML IV SCH ×2 (08:19→21:20)
[2020-04-28] MEDS ORDERED: COLLAGENASE 30 GM OINTMENT TOP ONE (08:24)
[2020-04-28] MEDS ORDERED: dexAMETHasone 10 MG/ML VIAL ONE (08:49)
--- NOTE | 2020-04-28 08:50 | P.OP ---
Manager Subway: NONE,NONE Preoperative diagnosis: Infected wound right great toe Postoperative diagnosis: same Primary procedure: Excisional debridement infected wound right great toe to sq 2x1 cm Anesthesia: General Estimated blood loss: min Specimen: necrotic and infected tissue, C&S Findings: as above Complications: None Transferred to: Recovery Room Condition: Good
--- NOTE | 2020-04-28 09:18 | OP ---
Date of Procedure: 04/28/2020 Surgeon: Jimenez Mayer MD Elevator Operator Service: None. Preoperative Diagnosis: Infected wound, right great toe. Postoperative Diagnosis: Infected wound, right great toe. Procedure Performed: Excisional debridement, right great toe infected wound, 2 x 1 cm to subcutaneou s tissue. Estimated Blood Loss: Minimal. Specimen: Infected wound for culture and sensitivity and pathology. Findings: As above. Anesthesia: General. Complications: None. Disposition: The patient tolerated the procedure in stable condition, taken to Recovery in good gene ral condition. Procedure In Detail: The patient was brought to the OR and placed in supine position. General anest hesia was begun. The patient was prepped and draped in usual sterile fashion. Marcaine 0.5% was inf iltrated locally. Then, a 15 blade was used to excise this necrotic eschar, which was present down t o the deep subcutaneous tissue, 2 x 1 cm in diameter. There was some purulence in there. Cultures w ere done. Wound was irrigated. Bleeding was controlled with cautery. Collagenase dressing was appl ied. The patient tolerated procedure in stable condition, taken to Recovery in good general condition. /MODL Voice ID: [id number] Report ID: [id number]
[2020-04-28 09:32] LABS: White Blood Cell Scan OK (OK)
[2020-04-28 09:33] LABS: Blood Morphology Comment NOT SEEN (NOT SEEN); Platelet Estimate ADEQ
--- NOTE | 2020-04-28 09:41 | P.PN ---
Subjective Date of Service: 04/28/20 Primary Care Provider: Dr. Velásquez; Surgery-Dr. Mayer Chief Complaint: Failed outpatient therapy Subjective: Improving, Doing well Physical Examination - Vital Signs Temperature: 97.0 F Blood Pressure: 132/57 Pulse: 61 Respirations: 18 Pulse Ox (%): 96 Assessment & Plan Discharge Plan: Home Plan to discharge in: 24 Hours Physician Review Additional Text: Physical Exam: Alert cooperative. Patient is planned for surgical debridement today H: Pacemaker paced. L: clear to auscutation. AB: soft, NT, ND EXT: Right great toe ulcer noted. No significant erythema noted. No swelling noted. Pain improved peer. Impression: Diabetic foot ulcer to the right great toe, failed outpatient therapy, suspect osteomyelitis Diabetes mellitus type 2 Hypertension Chronic renal disease stage 3 History of atrial fibrillation now with pacemaker Chronic diastolic CHF History of CVA Plan: Diabetic foot ulcer to the right great toe, failed outpatient therapy, suspect osteomyelitis: Patient doing well this time. Pain well controlled. Patient to have excisional debridement today. Await surgical findings. Spoke with surgery yesterday. Continue vancomycin and cefepime at this time. Will plan for discharge as early as tomorrow if IV vancomycin can be arranged as an outpatient at home. Patient will need IV antibiotic therapy for at least 2 weeks. Patient will also require home health for this. Lab to be monitored by surgery. This includes vanc trough every 3rd dose and lab-BMP twice a week. PICC line to be placed today. Plan of care discussed in detail with patient. Patient understands. If plan of care is not able to be done and patient requires skilled placement per insurance then patient willing to do this is well. I will turn the service over to the hospitalist team tomorrow. I will go plan of care with him. Diabetes mellitus type 2: Will monitor this closely. Accu-Cheks in place. Hypertension: Continue medication Chronic renal disease stage 3: Will monitor and adjust appropriately. Pharmacy to adjust medications History of atrial fibrillation now with pacemaker: Restart Eliquis today. Chronic diastolic CHF: Continue diuretic therapy. History of CVA: Continue home medication. Time Spent Managing Pts Care (In Minutes): 55
[2020-04-28] MEDS: APIXABAN 2.5 MG TABLET PO SCH (21:13)
[2020-04-28] MEDS: HYDROCODONE/APAP 7.5/325 MG TAB PO PRN (21:15)
[2020-04-29 04:51] LABS: Potassium 4.7 mmol/L (3.5-5.1)
[2020-04-29] MEDS: glipiZIDE 5 MG TAB PO SCH (08:21)
[2020-04-29] MEDS: FOLIC ACID 1 MG TABLET PO SCH (08:21)
[2020-04-29] MEDS: DOCUSATE NA 100 MG CAP PO SCH ×2 (08:21→20:44)
[2020-04-29] MEDS: SPIRONOLACTONE 25 MG TABLET PO SCH ×2 (08:21→20:44)
[2020-04-29] MEDS: AMIODARONE HCL 200 MG TAB PO SCH ×2 (08:21→20:44)
[2020-04-29] MEDS: APIXABAN 2.5 MG TABLET PO SCH ×2 (08:22→20:44)
[2020-04-29] MEDS: CEFEPIME/SWI 1gm 10 ML IV SCH ×2 (08:23→20:43)
[2020-04-29] MEDS: INSULIN -REGULAR HUMAN 50 UNIT/0.5 ML ML SQ SCH ×4 (08:23→20:51)
[2020-04-29 08:33] VITALS: O2SAT 98
--- NOTE | 2020-04-29 12:34 | PN ---
Date of Progress Note: 04/29/2020 Subjective: The patient is awake, alert. No complaint with regard to his foot. He still has a sai le bit of pain. Vitals are stable. He is afebrile. Wound is clean, dry, and intact. Cultures are pending. A PICC line has not been placed yet. Assessment: Cellulitis, infected wound, right great toe. Recommendations: Continue IV antibiotics and wound care as ordered, home health and PICC line. Once PICC line is in place, he can be discharged home on IV antibiotics for 2 weeks. Follow up in the [facility] next week in my clinic. /MODL Voice ID: [id number] Report ID: [id number]
[2020-04-29] MEDS ORDERED: GLUCAGON 1 MG/VIAL IM PRN (16:16)
[2020-04-29] MEDS ORDERED: D50W 25 GM/50 ML VIAL IV PRN (16:59)
[2020-04-29] MEDS ORDERED: INSULIN 70/30 100 UNITS/ML SQ ONE (17:00)
[2020-04-29] MEDS: HYDROCODONE/APAP 7.5/325 MG TAB PO PRN (17:59)
[2020-04-30] MEDS: INSULIN -REGULAR HUMAN 50 UNIT/0.5 ML ML SQ SCH ×3 (07:30→16:30)
[2020-04-30] MEDS: FOLIC ACID 1 MG TABLET PO SCH (09:12)
[2020-04-30] MEDS: APIXABAN 2.5 MG TABLET PO SCH (09:12)
[2020-04-30] MEDS: SPIRONOLACTONE 25 MG TABLET PO SCH (09:13)
[2020-04-30] MEDS: CEFEPIME/SWI 1gm 10 ML IV SCH (09:14)
[2020-04-30] MEDS: glipiZIDE 5 MG TAB PO SCH (09:15)
[2020-04-30] MEDS: AMIODARONE HCL 200 MG TAB PO SCH (09:16)
[2020-04-30] MEDS: DOCUSATE NA 100 MG CAP PO SCH (09:17)
--- NOTE | 2020-04-30 09:44 | P.PN ---
Subjective Date of Service: 04/29/20 Patient is doing well postsurgery. Patient wants to go home. No PICC line nurses at this time. Will need PICC line nurse placed an IV antibiotics arrange prior to discharge. Review of Systems 10-point ROS is otherwise unremarkable Physical Examination - Vital Signs Temperature: 97.7 F Blood Pressure: 121/58 Pulse: 63 Respirations: 18 Pulse Ox (%): 95 - Physical Exam General: Alert, In no apparent distress, Oriented x3 HEENT: Atraumatic, PERRLA, EOMI Neck: Supple, JVD not distended Respiratory: Clear to auscultation bilaterally, Normal air movement Cardiovascular: Regular rate/rhythm, Normal S1 S2 Gastrointestinal: Normal bowel sounds, No tenderness Musculoskeletal: No tenderness Integumentary: No rashes Neurological: Normal speech, Normal tone, Normal affect Lymphatics: No axilla or inguinal lymphadenopathy - Studies Medications List Reviewed: Yes Assessment & Plan - Advance Directives Does patient have a Living Will: No Does patient have a Durable POA for Healthcare: Yes
[2020-04-30] MEDS ORDERED: VANCOMYCIN 2 GM in NA CHLORIDE 0.9% 500 ML IVPB SCH (12:00)
--- NOTE | 2020-04-30 13:38 | RAD REPORT ---
EXAM DESCRIPTION: RAD - Chest Single View - 04/30/2020 1:29 pm CLINICAL HISTORY: picc line placement COMPARISON: Chest Single View dated 11/25/2017; Chest Single View dated 10/18/2017; Chest Single View dated 01/29/2017; Chest Pa And Lat (2 Views) dated 01/07/2017; CHEST SINGLE VIEW dated 08/06/2014 FINDINGS: Portable chest was obtained following placement of a right upper extremity PICC line. The catheter tip projects over the SVC.
[2020-04-30 16:44] VITALS: BP 125/58; TEMP 97.6
[2020-05-02] MEDS ORDERED: VANCOMYCIN 2 GM in NA CHLORIDE 0.9% 500 ML IVPB SCH ×2
--- NOTE | 2020-05-07 05:14 | P.DS ---
Discharge Date: 04/30/20 Primary Care Provider: Dr. Velásquez; Surgery-Dr. Mayer Disposition: DC HOME/HOME HEALTH CARE Discharge Condition: GOOD Reason for Admission: Failed outpatient therapy Consultations: General surgery Brief History of Present Illness: 74-year-old male with history of atrial fibrillation with pacemaker, CVA, diabetes mellitus type 2, hypertension, and chronic renal disease. Patient reports pain, swelling to the right great toe. He has been to the ER multiple times over the past month. He has been sent home with antibiotic therapy without any significant improvement. Patient denies any fever, chills, chest pain or shortness of breath. Pain and erythema noted. There is a ulcer to the medial aspect of that right great toe. He went to his surgeon today to get evaluated. Surgeon was concern for osteomyelitis. Patient was sent to the ER for further evaluation and treatment. In ER patient was evaluated. White count 8.0, hemoglobin 10.9. Platelet count 209. Pro calcitonin 0.07. Sodium 142, potassium 4.3. BN of 24, creatinine 1.23 with a GFR 57. Glucose 64. Patient was admitted for further evaluation and treatment. When I saw the patient ER, patient appeared stable. He does not appear septic. Patient admitted for treatment. Hospital Course: Patient had debridement of wound. We arranged for outpatient IV antibiotics. Patient was waiting and is discharged with delayed for PICC line placement. Once this was done we went ahead and have patient set up as an outpatient for IV antibiotic therapy. Patient will follow up with PCP in 1-2 weeks. Vital Signs/Physical Exam: Temp Pulse Resp BP Pulse Ox 97.6 F 69 17 125/58 L 99 04/30/20 16:00 04/30/20 16:00 04/30/20 16:00 04/30/20 16:00 04/30/20 16:00 General: Alert, In no apparent distress, Oriented x3 Laboratory Data at Discharge: WBC 10.50 K/uL (4.3-10.9) D 04/28/20 06:11 Hgb 11.2 g/dL (13.6-17.9) L 04/28/20 06:11 Hct 33.2 % (39.6-49.0) L 04/28/20 06:11 Plt Count 196 K/uL (152-406) 04/28/20 06:11 PT 18.5 SECONDS (9.5-12.5) H 04/25/20 15:50 INR 1.60 04/25/20 15:50 APTT 38.4 SECONDS (24.3-36.9) H 04/25/20 15:50 Sodium 140 mmol/L (136-145) 04/29/20 04:18 Potassium 4.7 mmol/L (3.5-5.1) 04/29/20 04:18 BUN 30 mg/dL (7-18) H 04/29/20 04:18 Creatinine 1.46 mg/dL (0.55-1.3) H 04/29/20 04:18 Glucose 230 mg/dL (74-106) H 04/29/20 04:18 Magnesium 2.0 mg/dL (1.8-2.4) 04/29/20 04:18 Total Bilirubin 0.6 mg/dL (0.2-1.0) 04/25/20 15:50 AST 14 U/L (15-37) L 04/25/20 15:50 ALT 18 U/L (12-78) 04/25/20 15:50 Alkaline Phosphatase ND 04/25/20 15:50 Amylase 22 U/L (25-115) L 04/25/20 15:50 Lipase 29 U/L (73-393) L 04/25/20 15:50 Home Medications: Amiodarone HCl [Cordarone*] 200 mg PO Q12H 10/19/17 Apixaban [Eliquis *] 2.5 mg PO BID 10/19/17 Spironolactone [Aldactone*] 25 mg PO BID 10/19/17 glipiZIDE [Glipizide] 5 mg PO DAILY 10/19/17 Docusate Sodium [Stool Softener] 100 mg PO BID 04/26/20 Hydrocodone 7.5/APAP 325 [[place] 7.5/325 mg*] 1 tab PO Q12H PRN #30 tab 04/30/20 New Medications: Hydrocodone 7.5/APAP 325 [[place] 7.5/325 mg*] 1 tab PO Q12H PRN #30 tab PRN Reason: Pain Scale 5-7 (Moderate) Physician Discharge Instructions: OK TO DC IV AND DC HOME FOLLOW-UP WITH PRIMARY CARE PROVIDER IN 1-2 WEEKS RETURN TO THE ER IF symptoms worsens CALL or TEXT DR. VAZQUEZ AT [phone] IF ANY QUESTIONS REGARDING HOSPITAL STAY. PLEASE CALL THE FLOOR AT [phone] IF ANY MEDICATION OR NURSING QUESTIONS. Diet: AHA Activity: Fall precautions Followup: NONE,NONE [Primary Care Provider] - Jimenez Mayer MD [ACTIVE - CAN ADMIT] - (follow up in the wound healing center with DR. Mayer call to schedule appointment) Time spent managing pt's care (in minutes): 35
== END 2020-04-30 17:54 | disposition home health service (06) | DRG 623 ==
LOC: ER 14:01 → ERHOLD 16:24 → 4TH 20:20 → 2ND 20:59
PROVIDERS: ADMIT Family Medicine; ATTEND Hospitalist
PROC: 0JBQ0ZZ Excision of Right Foot Subcutaneous Tissue and Fascia, Open Approach (ICD-10-PCS; principal; 2020-04-28 08:00)
PROC: 02HV33Z Insertion of Infusion Device into Superior Vena Cava, Percutaneous Approach (ICD-10-PCS; 2020-04-30)
DX: E11.621 Type 2 diabetes mellitus with foot ulcer (principal); I50.32 Chronic diastolic (congestive) heart failure; I13.0 Hypertensive heart and chronic kidney disease with heart failure and stage 1 through stage 4 chronic kidney disease, or unspecified chronic kidney disease; N18.30 Chronic kidney disease, stage 3 unspecified; L03.031 Cellulitis of right toe; L97.519 Non-pressure chronic ulcer of other part of right foot with unspecified severity; I48.91 Unspecified atrial fibrillation; K21.9 Gastro-esophageal reflux disease without esophagitis; I25.2 Old myocardial infarction; Z88.8 Allergy status to other drugs, medicaments and biological substances; Z79.01 Long term (current) use of anticoagulants; Z79.899 Other long term (current) drug therapy; Z79.4 Long term (current) use of insulin; Z86.73 Personal history of transient ischemic attack (TIA), and cerebral infarction without residual deficits; Z90.49 Acquired absence of other specified parts of digestive tract; Z86.718 Personal history of other venous thrombosis and embolism; Z95.0 Presence of cardiac pacemaker; Z96.651 Presence of right artificial knee joint; Z89.412 Acquired absence of left great toe; Z20.822 Contact with and (suspected) exposure to COVID-19
CPT/HCPCS: 36415; 36569; 71045; 78315; 80048; 80076; 80202; 81003; 81015; 82150; 82550; 82553; 82947; 83605; 83690; 83735; 84145; 85025; 85610; 85730; 87040; 87070; 87077; 87186; 87205; 88304; 93926; 96365; 96366; 96375; 99285; A9503; J0692; J1100; J1650; J1815; J2405; J2543; J2704; J3010; J3370; J3590; J7030; J7040; J7050; U0003

== ENCOUNTER 2020-06-13 19:50 | Observation (INO) | payer OTHER ==
--- OUTSIDE RECORDS SUMMARY | 2020-06-13 19:56 | XMS REPORT | Continuity of Care Document ---
:1945 Author Organization [facility] t Address 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 04-02 Yuliya kes - 00:00: Medical 00 [place] DARRELL (acute DARRELL (acute Disease Active 2016-[address] kidney kidney 04-02 [facility] - injury) injury) 00:00: Medical 00 [place] Pneumonia Pneumonia Disease Active 2016-[address] 04-01 [facility] 00 [facility] PAROXYSMAL Diagnosis Active 2016-09-14 Memoria AFIB, 08-28 10:10:00 l BRADYCARDI 00:00: Pepe smith A PAROXYSMAL 00 AFIB, BRADYCARDI A Active 08/28/2016 [facility] CCL/DUAL Diagnosis Active 2016-08-31 M emoria PMAKER 08-28 15:00:00 l IMPLANT/BS CCL/DUAL 00:00: He rmann /DX: PMAKER 00 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 Active 08/28/2016 [facility] 362.56 Diagnosis Active 2014-06-04 Mem oria EPIRETINAL 02-14 10:13:00 l MEMBRANE 362.56 00:00: Pepe smith LEFT EYE EPIRETINAL 00 MEMBRANE LEFT EYE Active 02/14/2014 [facility] Cerebrovas Problem Resolve 2016-09-15 Memoria cular d 00:18:55 l accident [place] (disorder) Cerebrovas cular accident (disorder) Resolved Problem 09/15/2016 [facility] Dizziness Problem Resolve 2016-09-15 M emoria (finding) d 00:18:55 l [place] Dizziness (finding) Resolved Problem 09/15/2016 [facility] Edema Problem Resolve 2016-09-15 Niko reynold (finding) d 00:18:55 l Edema Tino (finding) Resolved Problem 09/15/2016 [facility] Syncope Problem Resolve 2016-09-15 Mem oria (disorder) d 00:18:55 l Syncope Tino (disorder) Resolved Problem 09/15/2016 [facility] Bradycardi Problem Resolve 2016-09-15 Memoria a d 00:18:55 l (disorder) Pepe smith Bradycardi a (disorder) Resolved Problem 09/15/2016 [facility] Chest pain Problem Resolve 2016-09-15 Memoria (finding) d 00:18:55 l Chest Tino pain (finding) Resolved Problem 09/15/2016 [facility] Allergies, Adverse Reactions, Alerts Allergy Allergy Status Severity Reaction(s) Onset Inactive Treating Comm ents Source Name Type Date Date Clinician NKFA NKFA Active Memoria l [place] Family History Family Member Diagnosis Comments Start Date Stop Date Source Natural brother Cancer [facility] Natural brother Diabetes [facility] Natural brother Hypertension [facility] Natural mother Heart disease [facility] Natural sister Hypertension [facility] Social History Social Habit Start Date Stop Date Quantity Comments Source Sex Assigned At [facility] Alcohol intake 2017-02-06 2017-02-[address] [facility] es - 00:00:00 00:00:00 non-drinker of Medical Ce nter alcohol (finding) Tobacco use and 2017-02-06 2017-02-06 Never used [facility] - exposure 00:00:00 00:00:00 [facility] Social History 2014-03-05 2014-03-05 [facility] 17:12:04 17:12:04 Smoking Status Start Date Stop Date Source Former smoker 2017-02-06 00:00:00 2017-02-06 00:00:00 [facility] Medications Ordered Filled Start Stop Current [...] 09-12 Route: IM, l 16:50: Drug form: [place] PDR/INJ, PRN, Dosing Weight 116.364, kg, PRN [...] as: l 03:33: Mag-Ox 400) Magnesium oxide 515tn=498x g elemental magnesium Dose=____m g magnesium oxide [...] WASTE: F/P l 03:21: - Sink; E [place] 00 - Municipal Trash Bin Potassium No Notes: Memori a Chloride 8-05 (Same as: l 03:21: K-Dur 20) [place] 00 "Do Not Crush" With food and full glass of water Pradaxa No Notes: DO Memor ia 09-12 NOT break, l 02:00: chew or Tino 00 open capsules for administra tion. metoprolol [...] 60 l mg oral 22:15: tab, 1 [place] tablet 00 Refill(s) metoprolol No Notes: Memor [...] not exceed l #3 21:59: 4gm/day of [place] 00 acetaminop hen. (Same as: Tylenol with [...] tab, PO, l tablet 17:21: Daily, 0 [place] 00 Refill(s) glyBURIDE 5 Yes 10 mg [...] Oral (F) 2016-09-12 20:06:00 97.9 F [facility] [place] Respitory Rate 2016-09-12 19:00:00 Memori al Tino Systolic (mm Hg) 2016-09-12 19:00:00 Niko rial [place] Diastolic (mm Hg) 2016-09-12 19:00:00 Mem orial [place] Respitory Rate 2016-09-12 18:00:00 Memori al [place] Systolic (mm Hg) 2016-09-12 18:00:00 Niko rial [place] Diastolic (mm Hg) 2016-09-12 18:00:00 Mem orial [place] Respitory Rate 2016-09-12 17:00:00 Memori al [place] Systolic (mm Hg) 2016-09-12 17:00:00 Niko rial [place] Diastolic (mm Hg) 2016-09-12 17:00:00 Mem orial [place] Temperature Oral (F) 2016-09-12 12:51:00 97.9 F [facility] [place] Temperature Oral (F) 2016-09-12 10:38:00 97.6 F [facility] [place] BMI Calculated 2016-09-11 16:02:00 Memori al [place] Weight 2016-09-11 16:02:00 [facility] [place] Height 2016-09-11 16:02:00 182.88 cm [facility] [place] Systolic (mm Hg) 2014-03-06 20:30:00 Niko rial [place] Diastolic (mm Hg) 2014-03-06 20:30:00 Mem orial [place] Respitory Rate 2014-03-06 20:30:00 Memori al [place] Diastolic (mm Hg) 2014-03-06 20:15:00 Mem orial [place] Systolic (mm Hg) 2014-03-06 20:15:00 Niko rial [place] Respitory Rate 2014-03-06 20:15:00 Memori al [place] Diastolic (mm Hg) 2014-03-06 20:02:00 Mem di [place] Systolic (mm Hg) 2014-03-06 20:02:00 Niko rosenthal [place] Respitory Rate 2014-03-06 20:02:00 John ferris [place] Heart Rate 2014-03-06 17:15:00 [facility] [place] Heart Rate 2014-03-05 17:17:00 [facility] [place] BMI Calculated 2014-03-05 16:24:00 John al [place] Weight 2014-03-05 16:24:00 [facility] [place] Height 2014-03-05 16:24:00 180.34 cm [facility] [place] Procedures Procedure Date / Time Performed Performing Clinician [facility] wood Arthroplasty of [facility] [place] knee<sup>1</sup> Procedure<sup>2</sup> [facility] H ermann Encounters Start End Encounter Admission Attending Care Care Encounter Source Date/Time Date/Time Type Type Clinicians Facility Department ID 2016-09-11 2016-09-12 Outpatient Jacquelin, [facility] [id number] 10:41:00 16:00:00 Eddie 2014-03-06 2014-03-06 Outpatient Rosa, [facility] [id number] 10:57:00 15:00:00 Jean Carlos L 00 Results Test Description Test Time Test Comments Results Result Comments Source POCT-GLUCOSE METER 2017-02-08 13:28:00 Test Item Value Reference Range Interpretation Comme nts POC-GLUCOSE METER (BEAKER) (test 270 mg/dL 70-[address] [facility] [address] code = 1538) [facility] 7703 0 POCT-GLUCOSE [id number] 08:58:00 Test Item Value Reference Range Interpretation Comments POC-GLUCOSE METER 147 mg/dL 70-[address] [facility] [address] (BEAKER) (test code = BERTNE R [facility] 1538) [address] CBC W/PLT COUNT & AUTO [id number] 08:53:00 Test Item Value Reference Range Interpretation [...] 0-1 PERCENT (BEAKER) (test code = 2801) [id number] 08:05:00 Test Item Value Reference Range Interpretation Comments MAGNESIUM (BEAKER) (test code = 1.5 mg/dL 1.6-2.6 L 627) BASIC METABOLIC [id number] 08:05:00 Test Item Value Reference Range Interpretation [...] NOT APPLICABLE FOR DIALYSIS PATIEN TS. POCT-GLUCOSE [id number] 21:57:00 Test Item Value Reference Range Interpretation Comments POC-GLUCOSE METER 219 mg/dL 70-[address] [facility] 67 (BANNER) (test code = [place] 1538) [address] POCT-GLUCOSE [id number] 17:24:00 Test Item Value Reference Range Interpretation Comments POC-GLUCOSE METER 247 mg/dL 70-110 H TESTED AT [place] [address] (BANNER) (test code = [place] 1538) [address] CBC W/PLT COUNT & AUTO [id number] 13:56:00 Test Item Value Reference Range Interpretation [...] (BEAKER) (test code Normal = 762) POCT-GLUCOSE [id number] 13:22:00 Test Item Value Reference Range Interpretation Comments POC-GLUCOSE METER 226 mg/dL 70-110 H TESTED AT [place] [address] ([facility] (test code = [place] [facility] 1538) [address] POCT-GLUCOSE [id number] 07:59:00 Test Item Value Reference Range Interpretation Comments POC-GLUCOSE METER 216 mg/dL 70-110 H TESTED AT [place] [address] (BANNER) (test code = [place] [facility] 1538) [address] [id number] 05:18:00 Test Item Value Reference Range Interpretation Comments MAGNESIUM (BEAKER) (test code = 1.7 mg/dL 1.6-2.6 627) BASIC METABOLIC [id number] 05:18:00 Test Item Value Reference Range Interpretation [...] NOT APPLICABLE FOR DIALYSIS PATIEN TS. POCT-GLUCOSE [id number] 20:58:00 Test Item Value Reference Range Interpretation Comments POC-GLUCOSE METER 260 mg/dL 70-[address] [facility] 67 (BANNER) (test code = [facility] [place] 1538) [address] POCT-GLUCOSE [id number] 17:32:00 Test Item Value Reference Range Interpretation Comments POC-GLUCOSE METER 237 mg/dL 70-110 H TESTED AT [place] [address] (BANNER) (test code = [facility] [place] 1538) [address] POCT-GLUCOSE [id number] 16:21:00 Test Item Value Reference Range Interpretation Comments POC-GLUCOSE METER 223 mg/dL 70-110 H TESTED AT [place] [address] (BANNER) (test code = [facility] 1538) [address] CBC W/PLT COUNT & AUTO [id number] 14:22:00 Test Item Value Reference Range Interpretation [...] (BEAKER) (test code = Normal 762) POCT-GLUCOSE [id number] 11:52:00 Test Item Value Reference Range Interpretation Comments POC-GLUCOSE METER 143 mg/dL 70-[address] [facility] 67 (BEAKER) (test code = [facility] 1538) [address] POCT-GLUCOSE [id number] 08:04:00 Test Item Value Reference Range Interpretation Comments POC-GLUCOSE METER 86 mg/dL 70-[address] [facility] 6720 (BEAKER) (test code = [facility] [address] 1538) [id number] 06:07:00 Test Item Value Reference Range Interpretation Comments MAGNESIUM (BEAKER) 1.6 mg/dL 1.6-2.6 Specimen slightly (test code = 627) hemolyzed BASIC METABOLIC [id number] 06:07:00 Test Item Value Reference Range Interpretation [...] NOT APPLICABLE FOR DIALYSIS PATIEN TS. POCT-GLUCOSE [id number] 20:42:00 Test Item Value Reference Range Interpretation Comments POC-GLUCOSE METER 338 mg/dL 70-[address] [facility] 6720 (BANNER) (test code = [place] [facility] 1538) [address] POCT-GLUCOSE [id number] 17:41:00 Test Item Value Reference Range Interpretation Comments POC-GLUCOSE METER 303 mg/dL 70-110 H TESTED AT [place] [id number] (BANNER) (test code = [place] [facility] 1538) [address] RAD, CHEST, 1 VIEW, NON [id number] 14:44:00Reason for exam:->shortness of breath s/p RHCShould this be performed at the bedside?->YesFINAL REPORT CLINICAL HISTORY: shortness of breath s/p RHC TECHNIQUE: 1 viewof the chest. COMPARISON: 01/31/2017 IMPRESSION: Trace bilateral pleural effusions are again seen with left basilar atelectasis. The cardiomediastinal silhouette is magnified by technique with a pacemaker. Signed: Barbara Pizarro MDReport Verified Date/Time: 02/05/2017 14:44:20 [facility] Consult Reading Room CBC W/PLT COUNT & AUTO [id number] 14:37:00 Test Item Value Reference Range Interpretation [...] (BEAKER) (test code = Normal 762) POCT-GLUCOSE [id number] 12:08:00 Test Item Value Reference Range Interpretation Comments POC-GLUCOSE METER 197 mg/dL 70-[address] [facility] 67[address] (BEAKER) (test code = [place] 1538) [address] POCT-GLUCOSE [id number] 07:55:00 Test Item Value Reference Range Interpretation Comments POC-GLUCOSE METER 149 mg/dL 70-[address] [facility] 67[address] (BEAKER) (test code = [place] 1538) [address] [id number] 05:21:00 Test Item Value Reference Range Interpretation Comments MAGNESIUM (BEAKER) (test code = 1.4 mg/dL 1.6-2.6 L 627) BASIC METABOLIC [id number] 05:21:00 Test Item Value Reference Range Interpretation [...] NOT APPLICABLE FOR DIALYSIS PATIEN TS. POCT-GLUCOSE [id number] 21:03:00 Test Item Value Reference Range Interpretation Comments POC-GLUCOSE METER 296 mg/dL 70-[address] [facility] 6720 ([facility] (test code = [place] 1538) [address] POCT-GLUCOSE [id number] 17:18:00 Test Item Value Reference Range Interpretation Comments POC-GLUCOSE METER 275 mg/dL 70-[address] [facility] 6720 (BANNER) (test code = [place] 1538) [address] CBC W/PLT COUNT & AUTO [id number] 15:04:00 Test Item Value Reference Range Interpretation [...] COUNTED (BEAKER) (test code = 1351) POCT-GLUCOSE [id number] 12:17:00 Test Item Value Reference Range Interpretation Comments POC-GLUCOSE METER 208 mg/dL 70-[address] [facility] 67[address] (BEAKER) (test code = [place] 1538) [address] POCT-GLUCOSE [id number] 08:57:00 Test Item Value Reference Range Interpretation Comments POC-GLUCOSE METER 230 mg/dL 70-[address] [facility] 6720 (BEAKER) (test code = [place] 1538) [address] [id number] 05:56:00 Test Item Value Reference Range Interpretation Comments MAGNESIUM (BEAKER) (test code = 1.6 mg/dL 1.6-2.6 627) BASIC METABOLIC [id number] 05:56:00 Test Item Value Reference Range Interpretation [...] NOT APPLICABLE FOR DIALYSIS PATIEN TS. POCT-GLUCOSE [id number] 21:20:00 Test Item Value Reference Range Interpretation Comments POC-GLUCOSE METER 329 mg/dL 70-110 H Notified R Warren WATTS/TESTED (BEAKER) (test code = AT [facility] [address] [place] [address]) [facility] 7703 0 POCT-GLUCOSE [id number] 18:14:00 Test Item Value Reference Range Interpretation Comments POC-GLUCOSE METER 299 mg/dL 70-[address] [facility] 67 (BANNER) (test code = [place] [address]) [address] CBC W/PLT COUNT & AUTO [id number] 15:17:00 Test Item Value Reference Range Interpretation [...] (BEAKER) (test code = Normal 762) POCT-GLUCOSE [id number] 12:54:00 Test Item Value Reference Range Interpretation Comments POC-GLUCOSE METER 173 mg/dL 70-[address] [facility] 67[address] (BEAKER) (test code = [place] 1538) [address] URINALYSIS W/ REFLEX URINE [id number] 12:06:00 Test Item Value Reference Range Interpretation [...] code = 1584) SOURCE(BEAKER) (test code = 4066) CREATININE, RANDOM [id number] 10:52:00 Test Item Value Reference Range Interpretation Comments CREATININE URINE (BEAKER) (test 127.3 mg/dL code = 375) Reference Range: No NormalsPROTEIN, RANDOM [id number] 10:52:00 Test Item Value Reference Range Interpretation Comments PROTEIN, URINE (BEAKER) (test code = 19 mg/dL 0-14 H 1569) POCT-GLUCOSE [id number] 07:55:00 Test Item Value Reference Range Interpretation Comments POC-GLUCOSE METER 88 mg/dL 70-[address] [facility] 67[address] (BEAKER) (test code = [place] [address] 1538) [id number] 05:22:00 Test Item Value Reference Range Interpretation Comments MAGNESIUM (BEAKER) (test code = 1.8 mg/dL 1.6-2.6 627) BASIC METABOLIC [id number] 05:22:00 Test Item Value Reference Range Interpretation [...] 0-100 H (test code = 700) POCT-GLUCOSE [id number] 21:36:00 Test Item Value Reference Range Interpretation Comments POC-GLUCOSE METER 230 mg/dL 70-110 H TESTED AT [place] [address] (BANNER) (test code = [place] 1538) [address] POCT-GLUCOSE [id number] 17:50:00 Test Item Value Reference Range Interpretation Comments POC-GLUCOSE METER 185 mg/dL 70-110 H TESTED AT [place] [address] (BANNER) (test code = [place] 1538) [address] POCT-GLUCOSE [id number] 12:49:00 Test Item Value Reference Range Interpretation Comments POC-GLUCOSE METER 168 mg/dL 70-110 H TESTED AT [place] [address] (BANNER) (test code = [place] 1538) [address] CT, CHEST, WITHOUT [id number] 11:27:00FINAL REPORT Chest CT without contrast Reason [...] MDReport Verified Date/Time: 02/02/2017 11:27:58 Reading Location: [address] Consult Reading Room POCT-GLUCOSE [id number] 08:24:00 Test Item Value Reference Range Interpretation Comments POC-GLUCOSE METER 84 mg/dL 70-[address] [facility] 67[address] (BANNER) (test code = [place] [address] 1538) [id number] 07:42:00 Test Item Value Reference Range Interpretation Comments MAGNESIUM (ERIK) (test code = 1.8 mg/dL 1.6-2.6 627) BASIC METABOLIC [id number] 07:42:00 Test Item Value Reference Range Interpretation [...] PATIEN TS. CBC W/PLT COUNT & AUTO [id number] 07:40:00 Test Item Value Reference Range Interpretation [...] PERCENT (BEAKER) (test code = 2801) POCT-GLUCOSE [id number] 21:29:00 Test Item Value Reference Range Interpretation Comments POC-GLUCOSE METER 273 mg/dL 70-110 H TESTED AT [place] [address] (BANNER) (test code = [place] [facility] 1538) [address] POCT-GLUCOSE [id number] 19:21:00 Test Item Value Reference Range Interpretation Comments POC-GLUCOSE METER 286 mg/dL 70-110 H TESTED AT [place] [address] (BANNER) (test code = [place] 1538) [address] POCT-GLUCOSE [id number] 17:33:00 Test Item Value Reference Range Interpretation Comments POC-GLUCOSE METER 263 mg/dL 70-110 H TESTED AT [place] [address] (BANNER) (test code = [place] [facility] 1538) [address] POCT-GLUCOSE [id number] 12:25:00 Test Item Value Reference Range Interpretation Comments POC-GLUCOSE METER 196 mg/dL 70-110 H TESTED AT [place] [address] (BEAKER) (test code = [place] 1538) [address] CBC W/PLT COUNT & AUTO [id number] 10:54:00 Test Item Value Reference Range Interpretation [...] (BEAKER) (test code = Normal 762) POCT-GLUCOSE [id number] 08:17:00 Test Item Value Reference Range Interpretation Comments POC-GLUCOSE METER 176 mg/dL 70-[address] [facility] 6720 (BEAKER) (test code = [place] 1538) [address] [id number] 06:41:00 Test Item Value Reference Range Interpretation Comments MAGNESIUM (BEAKER) (test code = 1.7 mg/dL 1.6-2.6 627) BASIC METABOLIC [id number] 06:41:00 Test Item Value Reference Range Interpretation [...] NOT APPLICABLE FOR DIALYSIS PATIEN TS. POCT-GLUCOSE [id number] 21:33:00 Test Item Value Reference Range Interpretation Comments POC-GLUCOSE METER 295 mg/dL 70-110 H TESTED AT [place] [address] (BANNER) (test code = [place] 1538) [address] POCT-GLUCOSE [id number] 17:47:00 Test Item Value Reference Range Interpretation Comments POC-GLUCOSE METER 277 mg/dL 70-110 H TESTED AT [place] [address] (BANNER) (test code = [place] 1538) [address] RAD, CHEST, 2 [id number] 15:44:00Reason for exam:->dyspneaFINAL REPORT HISTORY : dyspnea. [...] Graff Verified Date/Time: 01/31/2017 15:44:13 Reading Location: [address] Ortho Consult Reading Room POCT-GLUCOSE [id number] 11:51:00 Test Item Value Reference Range Interpretation Comments POC-GLUCOSE METER 238 mg/dL 70-110 H TESTED AT [place] [address] (BANNER) (test code = [place] 1538) [address] POCT-GLUCOSE [id number] 09:54:00 Test Item Value Reference Range Interpretation Comments POC-GLUCOSE METER 224 mg/dL 70-110 H TESTED AT [place] [address] (BANNER) (test code = [place] 1538) [address] CBC W/PLT COUNT & AUTO [id number] 05:34:00 Test Item Value Reference Range Interpretation Comments WHITE BLOOD CELL COUNT (BANNER) 9.4 K/ L 3.5-10.5 (test code = 775) RED BLOOD CELL COUNT (BANNER) 4.42 M/ L 4.63-6.08 L (test code [...] 0-1 PERCENT (BEAKER) (test code = 2801) [id number] 05:19:00 Test Item Value Reference Range Interpretation Comments MAGNESIUM (BEAKER) (test code = 1.8 mg/dL 1.6-2.6 627) BASIC METABOLIC [id number] 05:19:00 Test Item Value Reference Range Interpretation [...] APPLICABLE FOR DIALYSIS PATIEN TS. STREP PNEUMONIAE [id number] 23:56:00 Test Item Value Reference Range Interpretation [...] the detection limit of the test.LEGIONELLA ANTIGEN, [id number] 23:54:00 Test Item Value Reference Range Interpretation [...] may cau se disease. INFLUENZA A H1N1 [id number] 23:10:00 Test Item Value Reference Range Interpretation Comments INFLUENZA A RNA Not Detected Not Detected, (BEAKER) (test code = Inconclusive 1545) NOVEL H1N1 RNA (BEAKER) Not Detected Not Detected, (test code = 1546) Inconclusive These assays were performed by real-time RT-PCR (supervisor money room-PCR) utilizing fluorogenic hydrolysis probe technology for the detection of human Influenza A viruses and the differential detection of novel H1N1 Influenza virus in respiratory specimens. The test is composed of (1) an RNA extraction from patient specimen, and (2) supervisor money room-PCR amplification and detection with human Influenza A and novel L3M4-tdsedloy primers and probes. A well-conserved region of [...] its performance characte ristics determined by the [facility] Pathology Department, Section of Molecular Pathology. It has not been cleared or approved by the U.S. Food and Drug Administration (FDA). SinceFDA approval is not required for clinical use of the test, validation was done as required by The Clinical Laboratory Amendments of 1988.These assays were performed by real-time RT-PCR (supervisor money room-PCR) utilizing fluorogenic hydrolysis probe technology for the detection of human Influenza A viruses and the differential detection of novel H1N1 Influenza virus in respiratory specimens. The test is composed of (1) an RNA extraction from patient specimen, and (2) supervisor money room-PCR amplification and detection with human Influenza A and novel F2M1-qcnyfzfy primers and probes. A well- conserved region [...] and its performance characteristics determined by the [facility] Pathology Department, Section of Molecular Pathology. It has not been cleared or approved by the U.S. Food and Drug Administration (FDA). Since FDA approval is not required for clinical use of the test, valida tion was done as required by The Clinical Laboratory Amendments of 1988.POCT- GLUCOSE [id number] 23:03:00 Test Item Value Reference Range Interpretation Comments POC-GLUCOSE METER 233 mg/dL 70-[address] [facility] 6720 (BEAKER) (test code = [place] 1538) [address] U/S, RENAL, [id number] 22:23:00Reason for exam:->akiFINAL REPORT U/S, RENAL, COMPLETE [...] MDReport Verified Date/Time: 01/30/2017 22:23:06 Reading [facility] C[facility]X Ortho Consult Reading Room SODIUM, RANDOM [id number] 20:40:00 Test Item Value Reference Range Interpretation Comments SODIUM URINE (BEAKER) (test code = < meq/L 243) Reference Range: No NormalsEOSINOPHIL SMEAR, [id number] 20:40:00 Test Item Value Reference Range Interpretation Comments EOSINOPHIL SMEAR, URINE (BEAKER) No EOS seen No EOS seen (test code = 1851) CREATININE, RANDOM [id number] 20:24:00 Test Item Value Reference Range Interpretation Comments CREATININE URINE (BEAKER) (test 113.2 mg/dL code = 375) Reference Range: No NormalsMICROALBUMIN, RANDOM [id number] 20:24:00 Test Item Value Reference Range Interpretation Comments MICROALBUMIN URINE (BEAKER) (test 4.2 mg/dL code = 1794) Reference Range: No NormalsURINALYSIS W/ [id number] 20:14:00 Test Item Value Reference Range Interpretation [...] 516) SOURCE(BEAKER) (test code = Urine, Voided 9409) POCT-GLUCOSE [id number] 18:25:00 Test Item Value Reference Range Interpretation Comments POC-GLUCOSE METER 230 mg/dL 70-[address] [facility] 67 (BEAKER) (test code = [facility] 1538) [address] POCT-GLUCOSE [id number] 13:49:00 Test Item Value Reference Range Interpretation Comments POC-GLUCOSE METER 267 mg/dL 70-[address] [facility] 6720 (BEAKER) (test code = [facility] 1538) [address] HEMOGLOBIN [id number] 11:50:00 Test Item Value Reference Range Interpretation Comments HEMOGLOBIN A1C (BEAKER) (test code = 10.7 % 4.3-6.1 H 368) TROPONIN [id number] 11:42:00 Test Item Value Reference Range Interpretation [...] acidosis, acute neurological disease, and persistent tachyarrhythmia.POCT-GLUCOSE [id number] 09:41:00 Test Item Value Reference Range Interpretation Comments POC-GLUCOSE METER 228 mg/dL 70-[address] [facility] 6720 (BEAKER) (test code = [facility] [place] 1538) [address] RAD, CHEST, 1 VIEW, NON [id number] 07:41:00Reason for exam:->eval pneumoniaShould this be performed [...] represent atelectasis or pneumonitis. Signed: Zuleima Graff [facility] Verified Date/Time: 01/30/2017 07:41:41 ReadingLocation: [facility] B1 C013T Transitional Reading Room MAGNESIUM 2017-01-30 02:54:00 Test Item Value Reference Range Interpretation Comments MAGNESIUM (BEAKER) (test code = 1.6 mg/dL 1.6-2.6 627) BASIC METABOLIC [id number] 02:54:00 Test Item Value Reference Range Interpretation [...] FOR DIALYSIS PATIEN TS. RAPID INFLUENZA A&B [id number] 02:41:00 Test Item Value Reference Range Interpretation Comments RAPID INFLUENZA A AG (BEAKER) Negative Negative, Inconclusive (test code = 1622) RAPID INFLUENZA B AG (BEAKER) Negative Negative, Inconclusive (test code = 1623) CBC W/PLT COUNT & AUTO [id number] 02:07:00 Test Item Value Reference Range Interpretation [...] PERCENT (BEAKER) (test code = 2801) POCT-GLUCOSE [id number] 23:18:00 Test Item Value Reference Range Interpretation Comments POC-GLUCOSE METER 230 mg/dL 70-[address] [facility] 6720 (BEAKER) (test code = [facility] [place] 1538) [address] CHEM [id number] 10:03:003.1[facility] XHNSZ5474-00-38 10:03:002.6 [facility] RrtiofmLCDQZSFQOWME3063-88-69 10:03:0011.1[facility] HermannELECTROLYTES 2016-09-12 10:03:004.1[facility] UdlcxorDYVZUNFTHXFB9530-65-76 10:03:62237Trrywphm WncrwywDMDAGZZQWRLC7754-94-93 10:03:0025[facility] XbjckpjBYNFTZFMWXYD0963-57-93 10:03:0074[facility] UwaljicOJBDHQOLXDWE2590-16-98 10:03:0016[facility] WAKNYDLZXFPQ1869-04-66 10:03:81519Vucrbvof KyyewmfKEDMMWZOQTUD7338-74-33 10:03:008.7[facility] ZjswqdmIGDEWVIIWWIK6221-99-60 10:03:001.00[facility] NRTONHCZWNKJ6225-78-17 10:03:80030Pmvchddt UmbdafeTLOGTLYTKD6802-86-34 10:03:00 Normal (09/12/16 5:03 AM)[facility] DdxicilZPLVQGEVCZ4934-28-37 10:03:000.0[facility] AleuvcxQYDCEKSJJW1206-07-66 10:03:000.0[facility] VotbrqiSUXLOEVSCP0504-58-97 10:03:0017.0[facility] EdfsdvkXUYJSNSLGW6399-90-15 10:03:00Normal (09/12/16 5:03 AM) [facility] IxyrwjrIJFUWSBBOG8584-37-01 10:03:001.0[facility] HermannHEMATOLOGY 2016-09-12 10:03:0027.0[facility] RdtpipgKNENADXMLX6258-04-50 10:03:004.8[facility] IrbvifdQLDRFBXUUT8119-63-30 10:03:002.3[facility] QevtgahUCDGGZSSNY8780-25-15 10:03:0055.0[facility] OdsbcbmLWGOORCRJV8235-91-09 10:03:000.1[facility] ULFVVCCAPO4984-20-74 10:03:001.5[facility] WorftntIQLLMPCOII1199-50-44 10:03:007.7 [facility] MkfcooqPNSMRXDHYU4262-33-26 10:03:00 Test Item Value Reference Range Interpretation Comments MCH (test code = MCH) 29.8 pg 27.0-31.0 [facility] FnsewjwTUMDGANKRR0518-78-10 10:03:0088.2[facility] HermannHEMATOLOGY 2016-09-12 10:03:85706Ulykxxkf LrjzkriVKQNKNJPWQ7527-41-46 10:03:0014.7[facility] IvssfdrNJBNBOLUDJ2839-34-80 10:03:0033.8[facility] MukkbnlZAGMMTEIIG0133-56-50 10:03:003.97[facility] TcajhwwDDRSJBMDLM8277-16-49 10:03:0011.8[facility] ACPYVPAWOD2525-78-11 10:03:008.7[facility] SnlfesyFTDUJTUSEI4649-93-52 10:03:00 35.0[facility] HermannCHEM RIRLX3175-20-86 23:45:21923Phiehisj HermannCHEM PANEL 2016-09-11 23:45:003.8[facility] HermannCHEM IKBMD3430-02-97 23:45:61953Pzuipwbp HermannCHEM IHJIC6224-67-04 23:45:001.07[facility] HermannCHEM UCECM4305-24-39 23:45:0013[facility] HermannCHEM AASGN0446-27-71 23:45:13309Hipjjxze HermannCHEM STPYL7761-52-89 23:45:0068[facility] HermannCHEM PYYPP8297-79-02 23:45:0013.8 [facility]annCHEM WYJOM8918-10-44 23:45:009.0[facility] HermannCHEM PANEL 2016-09-11 23:45:0026[facility] HermannBLOOD BANK ODTCUWT4296-83-49 16:12:00 Negative (09/11/16 11:12 AM)[facility]annCHEM KEMWV8706-54-35 16:12:003.3 [facility]annCHEM HYECE4916-34-44 16:12:001.6[facility] HermannELECTROLYTES 2016-09-11 16:12:009.7[facility] OuwdiqvYOHBDNEOVGFM0311-00-94 16:12:0069[facility] JaaydnnRWYYCNLDDLAQ4614-93-07 16:12:0028[facility] ZdzawhoMNWRIZMYMMDL9062-80-10 16:12:77277Zxazjgmo AnoqdjdVAJYJLADRLLJ8030-10-86 16:12:003.7[facility] NWEOWYYCYQAX9972-99-48 16:12:008.9[facility] OdxxexoEAMNDMXJWAMU9954-24-51 16:12:36496Cheyftix VjnhiwjVOTDWGWACQDA7994-84-09 16:12:001.06[facility] EIMKMWDJTEVH7825-88-57 16:12:0015[facility] GnrrrbqQXNNGRHPQOYT7559-75-64 16:12:00 87[facility] IajbcrdLKBUYWCYHR2048-22-45 16:12:0033.1[facility] HermannHEMATOLOGY 2016-09-11 16:12:95845Lydmhsye HgoogbqKRADFFAYCE3057-95-04 16:12:0011.0[facility] EjsawsbKFXUVCZEQZ0771-61-53 16:12:007.5[facility] WqtqfyiOWDCZECGZG7055-19-38 16:12:0089.2[facility] IyrdzhfBFRWJDOVNU1138-28-39 16:12:00 Test Item Value Reference Range Interpretation Comments MCH (test code = MCH) 29.5 pg 27.0-31.0 [facility] WwuraftIQBYSDMMHY1386-08-75 16:12:003.72[facility] HermannHEMATOLOGY 2016-09-11 16:12:0014.7[facility] DlebemmZCCUBHFBES7882-42-05 16:12:008.2[facility] UuiftbyFPYFRYSUTK3772-98-74 16:12:0033.1[facility] FxaxwbaOKDLEUQSXY5599-14-97 16:12:00 Test Item Value Reference Range Interpretation Comments PT (test code = PT) 16.6 s 12.0-14.7 [facility] FyaiussALPUMQSIXS1756-65-69 16:12:001.32[facility] HermannHEMATOLOGY 2016-09-11 16:12:00 Test Item Value Reference Range Interpretation Comments PTT (test code = PTT) 43.0 s 22.9-35.8 [facility] NzovemfQWZNBZDIUR0853-20-14 16:12:001.6[facility] HermannHEMATOLOGY 2016-09-11 16:12:000.3[facility] SkcbnqkYHZLDLCQLO8107-92-11 16:12:001.7[facility] VjqeinbVFPFLDPRNS0252-41-54 16:12:000.5[facility] LpothijLHICABLLBA9914-00-60 16:12:004.5[facility] KmqfkvdECQQWVXINA0037-89-66 16:12:003.4[facility] XBRTCHBJDQ8038-73-02 16:12:0055.3[facility] CdirdndHCDYZKWLUL9824-18-01 16:12:00 21.2[facility] GtixbwnCCCCSJAEIL4714-54-35 16:12:0019.6[facility] HermannCHEM PANEL 2014-03-05 16:27:009.4[facility] HermannCHEM MWXIS0614-40-31 16:27:0026[facility] HermannCHEM PZYKQ6711-62-97 16:27:0040[facility] HermannCHEM MRAQE7512-61-36 16:27:0045[facility] HermannCHEM SVPQT0041-12-61 16:27:01917Rvqeacph HermannCHEM UQVWR1363-59-30 16:27:004.4[facility] HermannCHEM WIGWZ5270-32-42 16:27:06925 [facility]annCHEM HPJXJ7712-17-40 16:27:001.7[facility] HermannCHEM PANEL 2014-03-05 16:27:88911Qxrfanmh HermannCHEM BOSRT2320-89-15 16:27:0011.4[facility] HvwtzvvAJYMSMSAXE2208-05-84 16:27:007.3[facility] ThruhqcTBMOKSSIAK8108-82-97 16:27:0033.9[facility] IjintwoVNKDEICFGW3921-22-80 16:27:74766Mhyznodf [place] KZCOMKDICO4284-73-25 16:27:0013.7[facility] QtqfkqaDPSARBTVPB5593-63-74 16:27:00 14.6[facility] CqldvvnWVWELSEHYA9887-79-43 16:27:0040.4[facility] HermannHEMATOLOGY 2014-03-05 16:27:00 Test Item Value Reference Range Interpretation Comments MCH (test code = MCH) 31.5 pg 27.0-31.0 [facility] FshwoeeGIMMETYQSV3127-34-39 16:27:0092.8[facility] HermannHEMATOLOGY 2014-03-05 16:27:004.35[facility] AshsdqiTBLTPEVQUP1872-38-59 16:27:009.4[facility] SouwlezBNNLHQMQHP6320-41-95 16:27:002.4[facility] JshdkkkJKIVZRUDTQ3250-91-28 16:27:0014.6[facility] IwlecxcRSMUSYTHBX5020-93-39 16:27:005.5[facility] [place] MWMIXWOFSS2526-71-98 16:27:0024.1[facility] BtctjjjCCPWSUVBTF5224-48-41 16:27:00 58.6[facility] XjqrntbSXYRVNOYLK9597-72-21 16:27:000.0[facility] HermannHEMATOLOGY 2014-03-05 16:27:000.2[facility] XkauiypYXVVNHVIOK8577-05-27 16:27:000.3[facility] CvjzhluYQCUBEGQXH3974-80-39 16:27:001.4[facility] IgjezsaOQTHRQRLGN7942-54-78 16:27:002.3[facility]
[2020-06-13 21:07] LABS: Absolute Lymphocytes (CBC) 1.8 K/uL (0.7-4.9); Basophils % 0.5 % (0-1.3); Hematocrit 29.5 % (39.6-49.0); Lymphocytes % 17.8 % (15.3-44.8); MPV 7.4 fL (7.6-11.3); RBC Red Blood Cell Count 3.06 M/uL (4.33-5.43)
[2020-06-13] MEDS ORDERED: MORPHINE 2 MG/ML SYR ONE (21:16)
[2020-06-13] MEDS ORDERED: ONDANSETRON 4 MG/2 ML VIAL ONE (21:16)
[2020-06-13 21:20] LABS: Protime INR 1.48
[2020-06-13 21:22] LABS: Albumin 3.3 g/dL (3.4-5.0); Bilirubin Direct 0.2 mg/dL (0-0.2); Bilirubin Total 0.5 mg/dL (0.2-1.0); Potassium 4.5 mmol/L (3.5-5.1); Protein, Total 7.8 g/dL (6.4-8.2)
[2020-06-13 21:42] LABS: Blood Morphology Comment NOT SEEN (NOT SEEN); Platelet Estimate ADEQ
--- NOTE | 2020-06-13 23:24 | EDPHYS ---
Physician Documentation [facility] Name: Ely Coley Age: 75 yrs Sex: Male : 1945 Arrival Date: 06/13/2020 Time: 19:51 Bed 15 Private MD: ED Physician Merlin Casarez HPI: 06/13 20:15 This 75 yrs old Male presents to ER via Wheelchair with complaints of mh7 Infection on toe. 20:15 The patient presents with pain, that is acute, swelling. The complaints affect the mh7 right foot, great toe. Context: The problem was sustained at an unknown location, resulted from an unknown cause, Mechanism of Injury: Unknown the patient can fully bear weight, the patient is able to ambulate, with mild difficulty. Onset: The symptoms/episode began/occurred 6 week(s) ago, and became worse 1 week(s) ago. Modifying factors: The symptoms are alleviated by nothing, the symptoms are aggravated by nothing. Associated signs and symptoms: Pertinent negatives: calf tenderness, fever, nausea, numbness, rash, tingling, vomiting, weakness. Severity of symptoms: At their worst the symptoms were moderate, 5 day(s) ago, in the emergency department the symptoms are unchanged. States that he has been receiving Vancomycin for right great toe infection for 6 weeks but toe is worsening for the past week. Denies any recent injury, fever, nausea, vomiting.. Historical: - Allergies: 20:03 steroids; ca1 - Home Meds: 20:03 amiodarone 200 mg Oral tab 1 tab once daily [Active]; glipizide 5 mg Oral tr24 1 tab ca1 once daily [Active]; Humalog Mix 75-25 100 unit/mL (75-25) Sub-Q susp use prn [Active]; Eliquis 2.5 mg Oral tab 1 tab 2 times per day [Active]; PreserVision AREDS 7,160-113-100 gwnh-wg-fepf Oral tab twice a day [Active]; Men's Multi-Vitamin Oral tab daily [Active]; Stool Softener Oral 2 times per day [Active]; spironolactone 25 mg Oral tab 1 tab 2 times per day [Active]; - PMHx: 20:03 Atrial Fib; Diabetes - IDDM; Diabetes - NIDDM; CVA; Hypertension; Pacemaker; ca1 - PSHx: 20:03 Cholecystectomy; ca1 - Immunization history:: Client reports having NOT received the Covid vaccine. Pneumococcal vaccine status is unknown, Flu vaccine status is unknown. - Social history:: Smoking status: Patient denies any tobacco usage or history of. ROS: 20:15 Constitutional: Negative for fever, chills, and weight loss, Eyes: Negative for injury, mh7 pain, redness, and discharge, ENT: Negative for injury, pain, and discharge, Neck: Negative for injury, pain, and swelling, Cardiovascular: Negative for chest pain, palpitations, and edema, Respiratory: Negative for shortness of breath, cough, wheezing, and pleuritic chest pain, Abdomen/GI: Negative for abdominal pain, nausea, vomiting, diarrhea, and constipation, Back: Negative for injury and pain, : Negative for injury, bleeding, discharge, and swelling, Skin: Negative for injury, rash, and discoloration, Neuro: Negative for headache, weakness, numbness, tingling, and seizure, Psych: Negative for depression, anxiety, suicide ideation, homicidal ideation, and hallucinations, Allergy/Immunology: Negative for hives, rash, and allergies, Endocrine: Negative for neck swelling, polydipsia, polyuria, polyphagia, and marked weight changes, Hematologic/Lymphatic: Negative for swollen nodes, abnormal bleeding, and unusual bruising. Exam: 20:15 Constitutional: This is a well developed, well nourished patient who is awake, alert, mh7 and in no acute distress. Head/Face: Normocephalic, atraumatic. Eyes: Pupils equal round and reactive to light, extra-ocular motions intact. Lids and lashes normal. Conjunctiva and sclera are non-icteric and not injected. Cornea within normal limits. Periorbital areas with no swelling, redness, or edema. Neck: Trachea midline, no thyromegaly or masses palpated, and no cervical lymphadenopathy. Supple, full range of motion without nuchal rigidity, or vertebral point tenderness. No Meningismus. Chest/axilla: Normal chest wall appearance and motion. Nontender with no deformity. No lesions are appreciated. Cardiovascular: Regular rate and rhythm with a normal S1 and S2. No gallops, murmurs, or rubs. Normal PMI, no JVD. No pulse deficits. Respiratory: Lungs have equal breath sounds bilaterally, clear to auscultation and percussion. No rales, rhonchi or wheezes noted. No increased work of breathing, no retractions or nasal flaring. Abdomen/GI: Soft, non-tender, with normal bowel sounds. No distension or tympany. No guarding or rebound. No evidence of tenderness throughout. Back: No spinal tenderness. No costovertebral tenderness. Full range of motion. Neuro: Awake and alert, GCS 15, oriented to person, place, time, and situation. Cranial nerves II-XII grossly intact. Motor strength 5/5 in all extremities. Sensory grossly intact. Cerebellar exam normal. Normal gait. Psych: Awake, alert, with orientation to person, place and time. Behavior, mood, and affect are within normal limits. Vital Signs: 19:59 BP 102 / 68; Pulse 68; Resp 15 S; Temp 98.3(O); Pulse Ox 98% on R/A; Weight 107.95 kg ca1 (R); Height 6 ft. 0 in. (182.88 cm) (R); Pain 10/10; 21:08 BP 120 / 55; Pulse 69; Resp 19; Pulse Ox 98% ; rr5 22:00 BP 136 / 89; Pulse 61; Resp 17; Pulse Ox 100% ; Pain 8/10; rr5 23:00 BP 126 / 89; Pulse 71; Resp 15; Pulse Ox 98% ; rr5 23:57 BP 120 / 79; Pulse 60; Resp 16; Pulse Ox 98% ; rr5 06/14 01:05 BP 135 / 66; Pulse 65; Resp 19; Pulse Ox 98% ; rr5 06/13 19:59 Body Mass Index 32.28 (107.95 kg, 182.88 cm) ca1 MDM: 06/13 23:21 Differential diagnosis: fracture, foreign body, arthritis, cellulitis. Data reviewed: [facility] vital signs, nurses notes, old medical records, lab test result(s), CBC, electrolytes, EKG, radiologic studies, plain films. Data interpreted: Pulse oximetry: on room air is 98 %. Interpretation: normal. Counseling: I had a detailed discussion with the patient and/or guardian regarding: the historical points, exam findings, and any diagnostic results supporting the discharge/admit diagnosis, lab results, radiology results, the need for further work-up and treatment in the hospital. Response to treatment: the patient's symptoms have mildly improved after treatment. 23:23 Patient medically screened. [facility] 06/13 20:13 Order name: CBC with Diff [facility] 06/13 20:13 Order name: Basic Metabolic Panel; Complete Time: 21:26 [facility] 06/13 20:13 Order name: LFT's; Complete Time: 21:26 [facility] 06/13 20:13 Order name: Protime (+inr); Complete Time: 21:26 [facility] 06/13 20:13 Order name: Ptt, Activated; Complete Time: 21:26 [facility] 06/13 20:14 Order name: CBC with Automated Diff; Complete Time: 22:16 [facility] 06/13 20:13 Order name: Foot Right 3 View XRAY [facility] 06/13 20:22 Order name: Blood Culture Adult (2) [facility] 06/13 20:23 Order name: Wound Culture [facility] 06/13 21:13 Order name: Manual Differential; Complete Time: 22:16 [facility] 06/13 23:47 Order name: SARS-COV-2 RT PCR [facility] 06/13 20:13 Order name: Saline Lock; Complete Time: 21:08 [facility] Administered Medications: 21:05 Drug: Zofran (Ondansetron) 4 mg Route: IVP; Site: right hand; rr5 22:00 Follow up: Response: No adverse reaction rr5 21:07 Drug: morphine 2 mg {Note: rass 0.} Route: IVP; Site: right hand; rr5 22:10 Follow up: Response: No adverse reaction; RASS: Alert and Calm (0) rr5 23:15 Dru grams of (Cefepime 1 grams, NS 0.9% 100 ml) Route: IVPB; Rate: 200 ml/hr; rr5 Infused Over: 30 mins; Site: right hand; 23:54 Follow up: Response: No adverse reaction; IV Status: Completed infusion; IV Intake: rr5 100ml Disposition: 06/13/20 23:23 Hospitalization ordered by Ferdinand Soares for Inpatient Admission. Preliminary diagnosis are Diabetic Foot Ulcer, Right Great Toe, Cellulitis, Right Foot, Failed Outpatient Treatment. - Bed requested for Telemetry/MedSurg (Inpatient). - Status is Inpatient Admission. ea - Condition is Stable. - Problem is an ongoing problem. - Symptoms have improved. Signatures: Dispatcher [employer] [facility] Margarita Caraballo RN RN tl1 Karen Em, RN Elfego Figueroa ea, RN JUDSON rr5 Jaimee Mao RN RN ca1 Holmes, Maurice, MD MD 7 Corrections: (The following items were deleted from the chart) 23:01 22:48 CORONAVIRUS+MR.LAB.BRZ ordered. EDMA EDMA 06/14 01:36 05 23:23 Hospitalization Ordered by Ferdinand Soares for Inpatient Admission. tl1 Preliminary diagnosis is Diabetic Foot Ulcer, Right Great Toe; Cellulitis, Right Foot, Failed Outpatient Treatment. Bed requested for Telemetry/MedSurg (Inpatient). Status is Inpatient Admission. Condition is Stable. Problem is an ongoing problem. Symptoms have improved. [facility] 06/14 02:18 01:36 06/13/2020 23:23 Hospitalization Ordered by Ferdinand Soares for Inpatient ea Admission. Preliminary diagnosis is Diabetic Foot Ulcer, Right Great Toe; Cellulitis, Right Foot, Failed Outpatient Treatment. Bed requested for Telemetry/MedSurg (Inpatient). Status is Inpatient Admission. Condition is Stable. Problem is an ongoing problem. Symptoms have improved. tl1
--- NOTE | 2020-06-13 23:24 | ER ---
Nurse's Notes [facility] Name: Ely Coley Age: 75 yrs Sex: Male : 1945 Arrival Date: 06/13/2020 Time: 19:51 Bed 15 Private MD: Diagnosis: Diabetic Foot Ulcer, Right Great Toe;Cellulitis, Right Foot, Failed Outpatient Treatment Presentation: 06/13 19:59 Chief complaint: Patient states: Admitted here for 7 days a month and half ago for R ca1 big toe infection. Been on Vancomycin for 6 weeks. It's just not getting better, and it's getting worse. Denies fever. Coronavirus screen: Client denies travel out of the [place] in the last 14 days. At this time, the client does not indicate any symptoms associated with coronavirus-19. Ebola Screen: Patient negative for fever greater than or equal to 101.5 degrees Fahrenheit, and additional compatible Ebola Virus Disease symptoms Patient denies exposure to infectious person. Patient denies travel to an Ebola-affected area in the 21 days before illness onset. No symptoms or risks identified at this time. Initial Sepsis Screen: Does the patient meet any 2 criteria? No. Patient's initial sepsis screen is negative. Does the patient have a suspected source of infection? No. Patient's initial sepsis screen is negative. Risk Assessment: Do you want to hurt yourself or someone else? Patient reports no desire to harm self or others. Onset of symptoms was June 13, 2020. 19:59 Method Of Arrival: Wheelchair ca1 19:59 Acuity: MITCH 3 ca1 Historical: - Allergies: 20:03 steroids; ca1 - Home Meds: 20:03 amiodarone 200 mg Oral tab 1 tab once daily [Active]; glipizide 5 mg Oral tr24 1 tab ca1 once daily [Active]; Humalog Mix 75-25 100 unit/mL (75-25) Sub-Q susp use prn [Active]; Eliquis 2.5 mg Oral tab 1 tab 2 times per day [Active]; PreserVision AREDS 7,160-113-100 [id number] Oral tab twice a day [Active]; Men's Multi-Vitamin Oral tab daily [Active]; Stool Softener Oral 2 times per day [Active]; spironolactone 25 mg Oral tab 1 tab 2 times per day [Active]; - PMHx: 20:03 Atrial Fib; Diabetes - IDDM; Diabetes - NIDDM; CVA; Hypertension; Pacemaker; ca1 - PSHx: 20:03 Cholecystectomy; ca1 - Immunization history:: Client reports having NOT received the Covid vaccine. Pneumococcal vaccine status is unknown, Flu vaccine status is unknown. - Social history:: Smoking status: Patient denies any tobacco usage or history of. Screenin:54 Abuse screen: Denies threats or abuse. Denies injuries from another. Nutritional rr5 screening: No deficits noted. Tuberculosis screening: No symptoms or risk factors identified. Fall Risk IV access (20 points). Total Sweenye Fall Scale indicates No Risk (0-24 pts). Assessment: 20:20 General: Appears in no apparent distress. uncomfortable, Behavior is calm, cooperative, rr5 appropriate for age. 20:20 Pain: Complains of pain in right foot Pain currently is 8 out of 10 on a pain scale. rr5 Quality of pain is described as aching, Pain began gradually, Is intermittent. Neuro: Level of Consciousness is awake, alert, obeys commands, Oriented to person, place, time. Cardiovascular: Capillary refill < 3 seconds Patient's skin is warm and dry. Respiratory: Airway is patent Respiratory effort is even, unlabored, Respiratory pattern is regular, symmetrical. GI: No signs and/or symptoms were reported involving the gastrointestinal system. : No signs and/or symptoms were reported regarding the genitourinary system. EENT: No signs and/or symptoms were reported regarding the EENT system. Derm: Decubitus located on right tip of the big toe approximately 1.5 cm to 2.5 cm has erythematous edges. Musculoskeletal: Capillary refill < 3 seconds, Swelling present in right leg. 21:30 Reassessment: Patient appears in no apparent distress at this time. Patient and/or rr5 family updated on plan of care and expected duration. Pain level reassessed. Patient is alert, oriented x 3, equal unlabored respirations, skin warm/dry/pink. 22:10 Reassessment: Patient appears in no apparent distress at this time. Patient is alert, rr5 oriented x 3, equal unlabored respirations, skin warm/dry/pink. awaiting for results. 23:55 Reassessment: Patient appears in no apparent distress at this time. Patient is alert, rr5 oriented x 3, equal unlabored respirations, skin warm/dry/pink. for admission awaiting for hospitalist. 06/14 00:30 Reassessment: Patient appears in no apparent distress at this time. Patient and/or rr5 family updated on plan of care and expected duration. Pain level reassessed. Patient is alert, oriented x 3, equal unlabored respirations, skin warm/dry/pink. hospitalist at bedside. 01:20 Reassessment: awaiting for in patient orders, resting eyes closed breathing rr5 spontaneously at room air. Vital Signs: 06/13 19:59 BP 102 / 68; Pulse 68; Resp 15 S; Temp 98.3(O); Pulse Ox 98% on R/A; Weight 107.95 kg ca1 (R); Height 6 ft. 0 in. (182.88 cm) (R); Pain 10/10; 21:08 BP 120 / 55; Pulse 69; Resp 19; Pulse Ox 98% ; rr5 22:00 BP 136 / 89; Pulse 61; Resp 17; Pulse Ox 100% ; Pain 8/10; rr5 23:00 BP 126 / 89; Pulse 71; Resp 15; Pulse Ox 98% ; rr5 23:57 BP 120 / 79; Pulse 60; Resp 16; Pulse Ox 98% ; rr5 06/14 01:05 BP 135 / 66; Pulse 65; Resp 19; Pulse Ox 98% ; rr5 06/13 19:59 Body Mass Index 32.28 (107.95 kg, 182.88 cm) ca1 ED Course: 06/13 19:51 Patient arrived in ED. am4 20:02 Triage completed. ca1 20:03 Arm band placed on right wrist. ca1 20:04 Merlin Casarez MD is Attending Physician. mh7 20:21 Elfego Maki, JUDSON is Primary Nurse. rr5 20:40 First set of blood cultures drawn Wound culture swab sent to lab. rr5 20:54 Inserted saline lock: 20 gauge in right hand, using aseptic technique. Blood collected. rr5 21:00 Patient has correct armband on for positive identification. Bed in low position. Call rr5 light in reach. Pulse ox on. NIBP on. 21:16 Foot Right 3 View XRAY In Process Unspecified. EDMS 22:30 Wound care: to diabetic wound located on right foot was cleaned with Hibiclens, Patient rr5 tolerated well. 23:22 Ferdinand Soares is Hospitalizing Provider. [facility] 06/14 01:58 No provider procedures requiring assistance completed. Patient admitted, IV remains in ea place. Administered Medications: 06/13 21:05 Drug: Zofran (Ondansetron) 4 mg Route: IVP; Site: right hand; rr5 22:00 Follow up: Response: No adverse reaction rr5 21:07 Drug: morphine 2 mg {Note: rass 0.} Route: IVP; Site: right hand; rr5 22:10 Follow up: Response: No adverse reaction; RASS: Alert and Calm (0) rr5 23:15 Dru grams of (Cefepime 1 grams, NS 0.9% 100 ml) Route: IVPB; Rate: 200 ml/hr; rr5 Infused Over: 30 mins; Site: right hand; 23:54 Follow up: Response: No adverse reaction; IV Status: Completed infusion; IV Intake: rr5 100ml Intake: 23:54 IV: 100ml; Total: 100ml. rr5 Outcome: 23:23 Decision to Hospitalize by Provider. [facility] 06/14 01:58 Condition: stable ea Instructed on the need for admit, Demonstrated understanding of instructions. 02:06 Admitted to Med/surg accompanied by tech, room 413, with chart, Report called to ea Receving nurse on fourth floor 02:18 Patient left the ED. ea Signatures: Dispatcher [employer] EDMS Karen Em RN RN ea Roque, Raymond, RN RN rr5 Jaimee Mao RN RN ca1 Holmes, Maurice, MD MD 7 Carlene Henderson am
[2020-06-13] MEDS ORDERED: NA CHLORIDE 0.9% 100 ML ONE (23:31)
[2020-06-13] MEDS ORDERED: CEFEPIME/SWI 1gm 10 ML ONE (23:31)
[2020-06-14] MEDS ORDERED: ONDANSETRON 4 MG/2 ML VIAL IV PRN (02:38)
[2020-06-14] MEDS ORDERED: VANCOMYCIN 2 GM in NA CHLORIDE 0.9% 500 ML IVPB SCH ×2 (02:38→03:30)
[2020-06-14] MEDS ORDERED: ACETAMINOPHEN 500 MG TAB PO PRN (02:38)
[2020-06-14] MEDS: CODEINE 30MG/APAP 300MG TAB PO PRN (03:24)
[2020-06-14 04:23] LABS: Urine Appearance CLEAR (Clear); Urine Bilirubin NEGATIVE (Negative); Urine Blood NEGATIVE (Negative); Urine Color YELLOW (Yellow); Urine Glucose NEGATIVE (Negative); Urine Protein NEGATIVE (Negative); Urine Urobilinogen 0.2 mg/dL (0.2-1.0); Urine pH 5.5 (5.0-7.0)
[2020-06-14 04:24] LABS: Magnesium 1.9 mg/dL (1.8-2.4); Phosphorus 3.6 mg/dL (2.5-4.9)
[2020-06-14 04:27] LABS: Urine Microscopic Reflex NO UMIC
--- NOTE | 2020-06-14 04:32 | P.HP ---
Certification for Inpatient Patient admitted to: Inpatient With expected LOS: >2 Midnights Patient will require the following post-hospital care: None Practitioner: I am a practitioner with admitting privileges, knowledge of patient current condition, hospital course, and medical plan of care. Services: Services provided to patient in accordance with Admission requirements found in Title 42 Section 412.3 of the Code of Federal Regulations <HenryBacilio Juanita - Last Filed: 06/14/20 04:26> Patient History Date of Service: 06/14/20 Primary Care Provider: Velásquez Reason for admission: cellulitis History of Present Illness: Mr. Coley is a 75 yo M with DM, HTN, h/o CVA, CKD and afib here today for worsening of his R diabetic foot ulcer for the past 4 days. He says he has been unable to sleep, he cannot walk, and he cannot even put on a sock due to the pain. He reports increased erythema, edema, and drainage. Denies night sweats, chills, nausea and vomiting. He was admitted for the ulcer on 04/25 and had surgical debridement on 04/28. He was discharged on 04/30 with a PICC line to continue IV vancomycin. He has been following up in wound care clinic. BUN 27. Cr 1.55. GFR 44. Glu 189. - Past Medical/Surgical History Diabetic: Yes -: History CVA -: Atrial fibrillation now with pacemaker -: DM -: HTN -: History of blood clot in the right arm -: GERD -: Moderate pulmonary hypertension -: CHF, diastolic dysfunction -: R. total knee replacement -: kristian. cataract sx -: Right thigh staph inf. -: L. big toe amputated -: Back sx Psychosocial/ Personal History: The patient is . - Family History Mother -: Heart disease Father -: Heart disease Brother -: Heart disease, Hypertension, Diabetes, Cancer - Social History Smoking Status: Never smoker Alcohol use: No CD- Drugs: No Caffeine use: Yes Place of Residence: Home <Bacilio Figueroa - Last Filed: 06/14/20 04:26> Date of Service: 06/14/20 <bandar orozco - Last Filed: 06/14/20 12:13> Allergies metoprolol Adverse Reaction (Verified 12/21/17 14:02) Shortness of breath steroids Allergy (Unknown, Uncoded 10/19/17 02:14) Unknown Home Medications: Amiodarone HCl [Cordarone*] 200 mg PO DAILY 10/19/17 Apixaban [Eliquis *] 2.5 mg PO BID 10/19/17 Spironolactone [Aldactone*] 25 mg PO BID 10/19/17 glipiZIDE [Glipizide] 5 mg PO DAILY 10/19/17 Docusate Sodium [Stool Softener] 100 mg PO BID 04/26/20 Insulis Lispro MIX 75/25 [Humalog Mix 75/25*] 5 units SQ BID 05/09/20 Mens Multivitamin 1 tab PO DAILY 05/09/20 Vit C/E/Zn/Coppr/Lutein/Zeaxan [Preservision Areds 2 Softgel] 1 cap PO BID 02/28 Codeine/APAP [Tylenol #3*] 1 tab PO Q6HP PRN 06/14/20 Review of Systems General: Unremarkable Eyes: Unremarkable ENT: Unremarkable Respiratory: Unremarkable Cardiovascular: Unremarkable Gastrointestinal: Unremarkable Genitourinary: Unremarkable Musculoskeletal: Foot Pain, As per HPI Integumentary: Unremarkable Neurological: Unremarkable Lymphatics: Unremarkable <HenryBacilio S - Last Filed: 06/14/20 04:26> Physical Examination - Vital Signs Temperature: 98.3 F Blood Pressure: 135/66 Pulse: 65 Respirations: 16 Pulse Ox (%): 95 - Physical Exam General: Alert, In no apparent distress, Oriented x3, Cooperative HEENT: Atraumatic, Normocephalic, PERRLA, Mucous membr. moist/pink, EOMI, Sclerae nonicteric Neck: Supple, 2+ carotid pulse no bruit, JVD not distended, No Thyromegaly, No LAD Respiratory: Clear to auscultation bilaterally, Normal air movement Cardiovascular: Regular rate/rhythm, Normal S1 S2, No gallops, No rubs, No murmurs, Edema, Abnormal pulses Capillary refill: <2 Seconds Gastrointestinal: Normal bowel sounds, Soft and benign, Non-distended, No ascites, No tenderness, No masses, No rebound, No guarding Musculoskeletal: No clubbing, No swelling, No contractures, No erythema, No tenderness, No warmth Integumentary: Tenderness/swelling, Erythema, Warmth, Diabetic ulcer Neurological: Normal speech, Normal strength at 5/5 x4 extr, Normal tone, Cranial nerves 3-12 intact, Normal affect, Abnormal sensation Lymphatics: No axilla or inguinal lymphadenopathy - Studies Laboratory Data (last 24 hrs) 06/13/20 22:50: SARS-CoV-2 RNA (RT-PCR) Negative 06/13/20 20:40: PT 17.1 H, INR 1.48, APTT 36.1 06/13/20 20:40: Sodium 140, Potassium 4.5, Chloride 108 H, Carbon Dioxide 26, BUN 27 H, Creatinine 1.55 H, Estimated GFR 44 L, Glucose 189 H, Calcium 8.8, Total Bilirubin 0.5, Direct Bilirubin 0.2, AST 12 L, ALT 16, Alkaline Phosphatase 138 H, Serum Total Protein 7.8, Albumin 3.3 L, Globulin 4.5 H, Albumin/Globulin Ratio 0.7 L 06/13/20 20:40: WBC 10.00, RBC 3.06 L, Hgb 10.1 L, Hct 29.5 L, MCV 96.4, MCH 32.8, MCHC 34.1, RDW 14.8, Plt Count 228, MPV 7.4 L, Neutrophils % 57.0, Lymphocytes % 17.8, Monocytes % 21.5 H, Eosinophils % 3.2, Basophils % 0.5, Absolute Neutrophils 5.7, Segmented Neutrophils 62, Band Neutrophils 1, Absolute Lymphocytes 1.8, Lymphocytes 18, Monocytes 10, Absolute Monocytes 2.2 H, Eosinophils 7 H, Absolute Eosinophils 0.3, Absolute Basophils 0.1, Atypical Lymphocytes 2, Platelet Estimate Adeq, Morphology Comment Not seen <Bacilio Figueroa - Last Filed: 06/14/20 04:26> - Studies Laboratory Data (last 24 hrs) 06/13/20 20:40: PT 17.1 H, INR 1.48, APTT 36.1 06/13/20 20:40: Sodium 140, Potassium 4.5, BUN 27 H, Creatinine 1.55 H, Glucose 189 H, Total Bilirubin 0.5, AST 12 L, ALT 16, Alkaline Phosphatase 138 H 06/13/20 20:40: WBC 10.00, Hgb 10.1 L, Hct 29.5 L, Plt Count 228 Microbiology Data (last 24 hrs): 06/13/20 20:45 Wound - Right Toe Gram Stain - Final <bandar orozco - Last Filed: 06/14/20 12:13> Assessment and Plan - Problems (Diagnosis) (1) Atrial fibrillation with rapid ventricular response Onset Date: 11/29/17 Current Visit: No Status: Chronic (2) Cerebrovascular accident (stroke) Onset Date: 07/03/14 Current Visit: No Status: Chronic Qualifiers: CVA mechanism: unspecified Qualified Code(s): I63.9 - Cerebral infarction, unspecified (3) Diabetic ulcer of right great toe Current Visit: No Status: Acute (4) A-fib Onset Date: 08/28/15 Current Visit: No Status: Chronic Qualifiers: Atrial fibrillation type: unspecified Qualified Code(s): I48.91 - Unspecified atrial fibrillation (5) Chronic anticoagulation Onset Date: 01/07/17 Current Visit: No Status: Chronic (6) Diabetes mellitus Onset Date: 11/29/17 Current Visit: No Status: Chronic Qualifiers: Diabetes mellitus type: type 2 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 mellitus 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 insulin use: without long-term use Diabetes mellitus complication status: with kidney complications Diabetes mellitus complication detail: with chronic kidney disease Chronic kidney disease stage 3 subtype: stage 3b (GFR 30-44) (7) Hypertension Onset Date: 08/28/15 Current Visit: No Status: Chronic Qualifiers: Hypertension type: essential hypertension Qualified Code(s): I10 - Essential (primary) hypertension (8) Obesity (BMI 30-39.9) Current Visit: No Status: Chronic (9) Renal insufficiency Onset Date: 01/07/17 Current Visit: No Status: Chronic (10) Cellulitis of right lower extremity Onset Date: ~06/14/20 Current Visit: No Status: Acute - Plan IV vancomycin + cefepime, renally dosed, ID consulted Surgery consulted Bone scan pending, venous and arterial doppler ultrasound pending wound culture and blood culture pending, previous wound culture grew MRSA sen sitive to vancomycin pain management as needed sliding scale insulin and accuchecks reconcile and continue home medications Discharge Plan: Home Plan to discharge in: 72 Hours - Advance Directives Does patient have a Living Will: No Does patient have a Durable POA for Healthcare: Yes - Code Status/Comfort Care Code Status Assessed: Yes (full code ) Critical Care: No Time Spent Managing Pts Care (In Minutes): 70 <Bacilio Figueroa - Last Filed: 06/14/20 04:26> Physician Review: Patient Assessed, Agree with Above Assessment and Plan Physician Review Additional Text: Bone scan suggesting osteomyelitis. Arterial Doppler of lower extremity suggesting significant stenosis in the distal arteries. Patient ruling in the option of amputation. He will need angiogram to better assess distal lower extremity arterial perfusion. Cardiology consulted to evaluate for angiogram. Surgery-Dr. Mayer consulted. Start gabapentin for possible neuropathic pain. Continue current antibiotics. IV morphine p.r.n. for pain. <bandar orozco - Last Filed: 06/14/20 12:13>
[2020-06-14 04:52] LABS: Potassium 4.6 mmol/L (3.5-5.1)
[2020-06-14 04:57] VITALS: BMI 32.3
[2020-06-14 05:01] LABS: Absolute Lymphocytes (CBC) 1.7 K/uL (0.7-4.9); Basophils % 0.5 % (0-1.3); Hematocrit 31.8 % (39.6-49.0); Lymphocytes % 16.5 % (15.3-44.8); MPV 7.9 fL (7.6-11.3); RBC Red Blood Cell Count 3.27 M/uL (4.33-5.43)
[2020-06-14] MEDS: INSULIN -REGULAR HUMAN 50 UNIT/0.5 ML ML SQ SCH ×4 (07:30→21:00)
[2020-06-14] MEDS: MORPHINE 2 MG/ML SYR IV PRN ×3 (08:05→21:56)
--- NOTE | 2020-06-14 09:43 | RAD REPORT ---
EXAM DESCRIPTION: USExtrem Venous W Compress Bil06/14/2020 9:27 am CLINICAL HISTORY: Leg swelling COMPARISON: none FINDINGS: The common femoral, superficial femoral, popliteal and posterior tibial veins bilaterally are compressible and demonstrate augmentation. Doppler demonstrates good flow. 15 millimeter right Dhillon's cyst IMPRESSION: No evidence of deep venous thrombosis involving either lower extremity.
--- NOTE | 2020-06-14 09:49 | RAD REPORT ---
EXAM DESCRIPTION: US - Upper Lower Extrem Art Multi - 06/14/2020 9:28 am CLINICAL HISTORY: Leg wound and swelling COMPARISON: None FINDINGS: The right common femoral, and superficial femoral arteries demonstrate triphasic waveforms . The right popliteal, right posterior tibial and right dorsalis pedis arterial waveform is monophasic Left common femoral, left superficial femoral and left popliteal arterial waveforms triphasic. Left posterior tibial and left dorsalis pedis arterial waveforms are biphasic IMPRESSION: Monophasic waveforms of the right popliteal and more distal arteries may indicate a sign ificant stenosis in the region of the distal right superficial femoral/popliteal artery Mild distal left lower extremity arterial disease
[2020-06-14] MEDS: CEFEPIME/SWI 2gm 2 GM/20 ML SYR IV SCH ×2 (10:03→21:48)
[2020-06-14] MEDS: AMIODARONE HCL 200 MG TAB PO SCH (10:03)
[2020-06-14] MEDS: SPIRONOLACTONE 25 MG TABLET PO SCH ×2 (10:03→21:52)
[2020-06-14] MEDS: DOCUSATE NA 100 MG CAP PO SCH ×2 (10:03→21:52)
[2020-06-14] MEDS: APIXABAN 2.5 MG TABLET PO SCH ×2 (10:05→21:52)
--- NOTE | 2020-06-14 10:19 | P.CNS ---
Date of Consult: 06/14/20 Primary Care Provider: Velásquez Chief Complaint: cellulitis History of Present Illness: The patient is a 75-year-old male with a past medical history of diabetes mellitus type 2, hypertension, history of CVA, CKD, and a fib rate controlled who is here today for worsening of his right diabetic foot ulcer over the past 4 days. Patient has been previously hospitalized at this facility due to his the wound. Patient states pain is debilitating and he is unable to ambulate due to the pain. He reports increased erythema, edema and drainage. Patient was admitted to the hospital due to the ulcer on 04/25 and had a surgical debridement on 04/28. Patient was discharged home on 04/30 with a PICC line to continue IV vancomycin for total duration of 2 weeks. PICC line still present from previous visit. Pending tests include a UA, blood culture, wound culture, bone scan, x-ray report. Venous Doppler completed which is negative for any DVT. Patient denies nausea, vomiting, diarrhea, shortness breath, chest pain. Patient endorses shooting/throbbing pain to his right great toe. Allergies metoprolol Adverse Reaction (Verified 12/21/17 14:02) Shortness of breath steroids Allergy (Unknown, Uncoded 10/19/17 02:14) Unknown Home Medications: Amiodarone HCl [Cordarone*] 200 mg PO DAILY 10/19/17 Apixaban [Eliquis *] 2.5 mg PO BID 10/19/17 Spironolactone [Aldactone*] 25 mg PO BID 10/19/17 glipiZIDE [Glipizide] 5 mg PO DAILY 10/19/17 Docusate Sodium [Stool Softener] 100 mg PO BID 04/26/20 Insulis Lispro MIX 75/25 [Humalog Mix 75/25*] 5 units SQ BID 05/09/20 Mens Multivitamin 1 tab PO DAILY 05/09/20 Vit C/E/Zn/Coppr/Lutein/Zeaxan [Preservision Areds 2 Softgel] 1 cap PO BID 05/09/20 Codeine/APAP [Tylenol #3*] 1 tab PO Q6HP PRN 06/14/20 - Past Medical/Surgical History Diabetic: Yes -: History CVA -: Atrial fibrillation now with pacemaker -: DM -: HTN -: History of blood clot in the right arm -: GERD -: Moderate pulmonary hypertension -: CHF, diastolic dysfunction -: R. total knee replacement -: kristian. cataract sx -: Right thigh staph inf. -: L. big toe amputated -: Back sx Psychosocial/ Personal History: The patient is . - Family History Mother Medical History: Heart disease Father Medical History: Heart disease Brother Medical History: Heart disease, Hypertension, Diabetes, Cancer - Social History Smoking Status: Unknown if ever smoked Alcohol use: No CD- Drugs: No Caffeine use: Yes Place of Residence: Home Review of Systems 10-point ROS is otherwise unremarkable Physical Examination Temp Pulse Resp BP Pulse Ox 98.3 F 76 16 135/58 L 95 06/14/20 04:36 06/14/20 10:03 06/14/20 08:35 06/14/20 10:03 06/14/20 08:35 General: Alert, In no apparent distress HEENT: Atraumatic, Normocephalic Neck: Supple, 2+ carotid pulse no bruit Respiratory: Clear to auscultation bilaterally, Normal air movement Cardiovascular: No edema, Normal pulses, Regular rate/rhythm Capillary refill: <2 Seconds Gastrointestinal: Normal bowel sounds, Soft and benign Musculoskeletal: No clubbing, No contractures Integumentary: Other (Bilateral lower extremity edema/stasis dermatitis. Right great toe diabetic ulcer: . Wound tissue is warm to touch, erythematous, and swollen. Wound approximately 1 cm x 1 cm.) Laboratory Data (last 24 hrs) 06/13/20 20:40: PT 17.1 H, INR 1.48, APTT 36.1 06/13/20 20:40: Sodium 140, Potassium 4.5, BUN 27 H, Creatinine 1.55 H, Glucose 189 H, Total Bilirubin 0.5, AST 12 L, ALT 16, Alkaline Phosphatase 138 H 06/13/20 20:40: WBC 10.00, Hgb 10.1 L, Hct 29.5 L, Plt Count 228 Conclusions/Impression: Antibiotics: vancomycin Start: 06/14 Stop:-- Cefepime Start: 06/14 stop: -- Assessment: -right foot diabetic ulcer -bilateral lower extremity edema/stasis dermatitis -diabetes mellitus type 2 -renal insufficiency -protein caloric malnutrition -anemia Plan: -continue current antibiotics-renally dosed due to his renal insufficiency. Patient was admitted to the hospital due to the ulcer on 04/25 and had a avila rgical debridement on 04/28. Patient was discharged home on 04/30 with a PICC line to continue IV vancomycin for total duration of 2 weeks. PICC line still present from previous visit. Bone scan on previous visit was negative for osteomyelitis. Test pending include UA, blood culture, wound culture, bone scan, x-ray report. Venous Doppler performed which was negative for any DVT. Surgery consulted. Antibiotic duration will be based off of test results/surgery consultation input. -recommend supplemental Ensure protein drinks due to low albumin -diabetes well controlled with hemoglobin A1c is 6.5. -medical management per primary team -continue to monitor CBC and BMP -continue to monitor signs infection
[2020-06-14] MEDS ORDERED: VANCOMYCIN 1.25 GM in NA CHLORIDE 0.9% 250 ML IVPB SCH ×2 (11:30→23:30)
--- NOTE | 2020-06-14 11:44 | RAD REPORT ---
EXAM DESCRIPTION: NM - Bone Imaging Three Phase - 06/14/2020 11:23 am CLINICAL HISTORY: Foot pain and swelling COMPARISON: June 13, 2020 x-ray TECHNIQUE: 26.9 mCi Tc MDPwas administered intravenously. Three-phase bone scan of the obtained FINDINGS: Increased radiotracer activity involves the right foot on perfusion and blood pool images . Delayed images demonstrate focal increased radiotracer activity involving the region of first distal phalanx right foot. IMPRESSION: Increased radiotracer uptake on all 3 phases involving the first distal phalanx right fo ot suspicious for osteomyelitis
[2020-06-14] MEDS ORDERED: CEFEPIME 2 GM VIAL IV SCH (12:00)
[2020-06-14] MEDS: VANCOMYCIN 1.25 GM in NA CHLORIDE 0.9% 250 ML IVPB SCH (13:01)
[2020-06-14] MEDS: GABAPENTIN 100 MG CAP PO SCH ×2 (13:12→21:51)
[2020-06-14] MEDS: LACTOBACILLUS/ACIDOPHILUS TAB PO SCH ×2 (13:12→21:52)
--- NOTE | 2020-06-14 14:44 | P.CNS ---
Date of Consult: 06/14/20 I was asked to see this patient in regards to his right great toe. 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 He was recently started on IV antibiotics. He has a ulcerated wound to his right great toe. He apparently had increase in both the pain level and duration of discomfort and was admitted to the hospital for investigation. He has a MRI that was ordered that is suggestive of possible osteo. The patient is afebrile at the moment. Does not appear septic or ill at the moment. He is some IV antibiotics. Pain medicine. This patient does work require emergent surgery. He I will gladly covering doctor since cause office but anticipate him returning early next week. The patient could also be followed in the Wound Care Clinic, he has an appointment for this coming Wednesday. Thank you
[2020-06-15] MEDS: MORPHINE 2 MG/ML SYR IV PRN (04:51)
[2020-06-15 06:31] LABS: Absolute Lymphocytes (CBC) 1.6 K/uL (0.7-4.9); Basophils % 0.6 % (0-1.3); Hematocrit 30.1 % (39.6-49.0); Lymphocytes % 16.9 % (15.3-44.8); MPV 7.8 fL (7.6-11.3); RBC Red Blood Cell Count 3.09 M/uL (4.33-5.43)
[2020-06-15 06:46] LABS: Albumin 2.9 g/dL (3.4-5.0); Bilirubin Total 0.6 mg/dL (0.2-1.0); Magnesium 1.8 mg/dL (1.8-2.4); Phosphorus 3.2 mg/dL (2.5-4.9); Potassium 4.8 mmol/L (3.5-5.1)
[2020-06-15] MEDS ORDERED: MAGNESIUM SULFATE 1 gm IVPB 1 GM/100 ML BAG IV ONE (08:00)
--- NOTE | 2020-06-15 08:03 | RAD REPORT ---
EXAM DESCRIPTION: RAD - Foot Right 3 View - 06/13/2020 9:16 pm CLINICAL HISTORY: Swelling;Pain. COMPARISON: None. TECHNIQUE: Three views of the right foot were obtained: AP, oblique, and lateral radiographs. FINDINGS: Small osseous fragments along the medial aspect of the first metatarsal head of uncertain acuity. Lisfranc joint alignment is maintained. Mild hallux valgus. Osteopenia. Mild multifocal osseo us degenerative changes. Small chronic Achilles and plantar fascial enthesophytes. No concerning osse ous lesions. Calcific atherosclerosis. IMPRESSION: 1. Small osseous fragments along the medial aspect of the first metatarsal head of unc ertain acuity. Correlate for point tenderness. 2. Chronic findings as described above. Electronically signed by: Niki Vigil MD 06/13/2020 10:33 PM CDT Due to temporary technical issues with the PACS/Fluency reporting system, reports are being signed by the in house radiologists without review as a courtesy to insure prompt reporting. The interpreting radiologist is fully responsible for the content of the report.
[2020-06-15] MEDS: SPIRONOLACTONE 25 MG TABLET PO SCH (08:49)
[2020-06-15] MEDS: GABAPENTIN 100 MG CAP PO SCH ×2 (08:49→14:43)
[2020-06-15] MEDS: LACTOBACILLUS/ACIDOPHILUS TAB PO SCH ×2 (08:49→14:43)
[2020-06-15] MEDS: DOCUSATE NA 100 MG CAP PO SCH (08:49)
[2020-06-15] MEDS: INSULIN -REGULAR HUMAN 50 UNIT/0.5 ML ML SQ SCH ×2 (08:50→12:34)
[2020-06-15] MEDS: APIXABAN 2.5 MG TABLET PO SCH (08:50)
[2020-06-15] MEDS: CEFEPIME/SWI 2gm 2 GM/20 ML SYR IV SCH (08:50)
[2020-06-15] MEDS: AMIODARONE HCL 200 MG TAB PO SCH (08:50)
[2020-06-15 09:12] VITALS: O2SAT 95
--- NOTE | 2020-06-15 11:48 | P.DS ---
Admission Date: 06/14/20 Discharge Date: 06/15/20 Primary Care Provider: Velásquez Disposition: DC HOME/HOME HEALTH CARE Discharge Condition: FAIR Reason for Admission: cellulitis Consultations: General Surgery-Dr. Mayer - Problems (1) Osteomyelitis of great toe of right foot Current Visit: Yes Status: Acute (2) Infected wound Current Visit: Yes Status: Acute (3) Venous stasis dermatitis Current Visit: Yes Status: Acute (4) Peripheral vascular disease Current Visit: Yes Status: Acute (5) Diabetic ulcer of right great toe Current Visit: No Status: Acute (6) Chronic kidney disease, stage 3 Current Visit: Yes Status: Acute Brief History of Present Illness: 75-year-old gentleman with a history of atrial fibrillation on Xarelto anticoagulation, status post pacemaker, diabetes mellitus, diabetic foot ulcer presented to the emergency department with a complaint of pain and increased discharge from right great toe wound. Patient was recently discharged with a 6 week course of IV vancomycin for infected right great toe wound with possible cellulitis. He was following with Dr. Mayer in the [facility]. Per report his vancomycin trough level was subtherapeutic for close to a week. The patient had no leukocytosis, no sepsis. He was hospitalized for further management. Hospital Course: Patient started on IV vancomycin. General surgery consult. Venous Doppler of lower extremities done was negative for DVT. Arterial Doppler suggested significant peripheral vascular disease in the right lower extremity. Patient's increased pain may be related to the peripheral vascular disease. Bone scan was done which suggested bone involvement. Case discussed with Dr. Mayer who recommended angiogram and to continue outpatient IV antibiotics-vancomycin. Dr. Hernandez was contacted who plans to do the angiogram next week. His pain was managed with IV morphine and gabapentin. Per patient this is effective in controlling his pain. Patient is clinically stable. He is discharged to continue IV vancomycin with home health. He will follow with Dr. Hernandez next week for angiogram. Vital Signs/Physical Exam: Temp Pulse Resp BP Pulse Ox 97.3 F 69 16 123/58 L 98 06/15/20 08:00 06/15/20 08:49 06/15/20 08:00 06/15/20 08:49 06/15/20 08:00 General: Alert, In no apparent distress, Oriented x3 HEENT: Mucous membr. moist/pink Neck: JVD not distended Respiratory: Clear to auscultation bilaterally, Normal air movement Cardiovascular: Regular rate/rhythm, Normal S1 S2, Edema (Bilateral lower extremities) Gastrointestinal: Normal bowel sounds, Soft and benign, No tenderness Integumentary: Other (Bilateral lower extremity venostasis dermatitis) Neurological: Normal speech, Normal strength at 5/5 x4 extr, Cranial nerves 3-12 intact Laboratory Data at Discharge: WBC 9.30 K/uL (4.3-10.9) 06/15/20 04:53 Hgb 9.9 g/dL (13.6-17.9) L 06/15/20 04:53 Hct 30.1 % (39.6-49.0) L 06/15/20 04:53 Plt Count 203 K/uL (152-406) 06/15/20 04:53 PT 17.1 SECONDS (9.5-12.5) H 06/13/20 20:40 INR 1.48 06/13/20 20:40 APTT 36.1 SECONDS (24.3-36.9) 06/13/20 20:40 Sodium 141 mmol/L (136-145) 06/15/20 04:53 Potassium 4.8 mmol/L (3.5-5.1) 06/15/20 04:53 BUN 27 mg/dL (7-18) H 06/15/20 04:53 Creatinine 1.44 mg/dL (0.55-1.3) H 06/15/20 04:53 Glucose 135 mg/dL (74-106) H 06/15/20 04:53 Phosphorus 3.2 mg/dL (2.5-4.9) 06/15/20 04:53 Magnesium 1.8 mg/dL (1.8-2.4) 06/15/20 04:53 Total Bilirubin 0.6 mg/dL (0.2-1.0) 06/15/20 04:53 AST 7 U/L (15-37) L 06/15/20 04:53 ALT 16 U/L (12-78) 06/15/20 04:53 Alkaline Phosphatase 101 U/L (45-117) 06/15/20 04:53 Home Medications: Amiodarone HCl [Cordarone*] 200 mg PO DAILY 10/19/17 Apixaban [Eliquis *] 2.5 mg PO BID 10/19/17 Spironolactone [Aldactone*] 25 mg PO BID 10/19/17 glipiZIDE [Glipizide] 5 mg PO DAILY 10/19/17 Docusate Sodium [Stool Softener] 100 mg PO BID 04/26/20 Insulis Lispro MIX 75/25 [Humalog Mix 75/25*] 5 units SQ BID 05/09/20 Mens Multivitamin 1 tab PO DAILY 05/09/20 Vit C/E/Zn/Coppr/Lutein/Zeaxan [Preservision Areds 2 Softgel] 1 cap PO BID 05/09/20 Gabapentin [Neurontin*] 100 mg PO TID #90 cap 06/15/20 Hydrocodone 5/APAP 325 [[place] 5/325] 1 tab PO Q6H PRN #30 tab 06/15/20 New Medications: Gabapentin [Neurontin*] 100 mg PO TID #90 cap Hydrocodone 5/APAP 325 [[place] 5/325] 1 tab PO Q6H PRN #30 tab PRN Reason: Pain Diet: ADA Activity: Ad kristy Followup: Unknown,U [Primary Care Provider] - Laci Hernandez MD [ACTIVE - CAN ADMIT] - 1 Week Jimenez Mayer MD [ACTIVE - CAN ADMIT] - 1 Week
--- NOTE | 2020-06-15 11:57 | CON ---
Date of Consultation: 06/15/2020 Reason For Consultation: Peripheral arterial disease. History Of Present Illness: Mr. Coley is a 75-year-old white male. He is known to me from previous o ffice visits and admissions in the past. Has a history of paroxysmal atrial fibrillation, status pos t pacemaker, has diabetes, has history of CVA and hypertension. He comes in with diabetic foot and i nfection of the right great toe. Arterial Doppler showed SFA stenosis in the distal right as well as popliteal disease. He had mild disease on the left side. I was consulted to perform an abdominal a ngiogram with runoff. The patient has been on IV antibiotics for his osteomyelitis for 4 weeks now. The case had been discussed with Dr. Mayer and Dr. Soares. His creatinine is 1.4, hemoglobin of 10. 5. No cardiac symptoms. Past Medical History: As stated above. Allergies: TO METOPROLOL AND STEROID. Review of Systems: Negative. Social History: Negative. Family History: Negative. Medications: Amiodarone, Eliquis, insulin, and Aldactone. He is also on antibiotics. Physical Examination: Vital Signs: Stable. He was afebrile. HEENT: Negative. Neck: Supple without any bruit, lymphadenopathy, JVD, or thyromegaly. Chest: Clear to auscultation and percussion. Cardiac: Revealed a paced rhythm. No murmurs, gallops, or rubs. Abdomen: Obese, but benign. Extremities: Right toe infection. No clubbing, no cyanosis, no edema otherwise. Diagnostic Data: As stated above. EKG showed paced rhythm. Chest x-ray was normal. Impression And Plan: 1.This is the patient with an infected right toe severe peripheral disease in the right superficial femoral artery and right popliteal. He is on Eliquis. He will have to hold that for 2 days before a n abdominal angiogram. We will have to give him Mucomyst before the abdominal angiogram. He can go home on antibiotics still and I will plan for an abdominal angiogram with runoff next week after bein g off Eliquis for 2 days and on Mucomyst for that 1 day. 2.Atrial fibrillation, chronic, on amiodarone and Eliquis, status post pacemaker. 3.Diabetes. 4.History of hypertension. 5.History of cerebrovascular accident. 6.Renal insufficiency. 7.Anemia. 8.Obesity. The patient can go home today. The case was discussed with Dr. Soares and Moreno. I will plan for th e angiogram next week. I will make that arrangement as an outpatient. MAXIMUS/AZEB Voice ID: [id number] Report ID: [id number]
[2020-06-15] MEDS: VANCOMYCIN 1.25 GM in NA CHLORIDE 0.9% 250 ML IVPB SCH (12:33)
[2020-06-15] MEDS: CODEINE 30MG/APAP 300MG TAB PO PRN (12:36)
[2020-06-15 12:38] VITALS: BP 154/66; TEMP 97
--- NOTE | 2020-06-15 15:22 | CON ---
Date of Consultation: 06/15/2020 Reason For Consultation: Right toe osteomyelitis and pain. History Of Present Illness: The patient is a 75-year-old gentleman with known osteomyelitis of the r ight great toe who [facility], was getting IV antibiotics. His pa in increased. He came to the emergency room, was admitted and I was consulted. The patient had an e xtensive workup done through the ER including a Doppler arterial and venous and bone scan. He denies any fever, chills, purulent discharge. No sore throat, runny nose, cough, headaches, or dizziness. No chest pain. Review of Systems: Otherwise unremarkable. Past Medical History: History of stroke. Past Surgical History: Atrial fibrillation, diabetes, hypertension, DVT, GERD, pulmonary hypertensio n, CHF. Past Surgical History: Pacemaker, right total knee replacement, cataract surgery. Right thigh staph infection, left big toe amputation, back surgery. Allergies: METOPROLOL, STEROIDS. Social History: Does not smoke or drink alcohol. Family History: Significant for hypertension, diabetes, and unknown type of cancer. Physical Examination: Vital Signs: Stable and afebrile. General: Awake, alert, and orient x3. Head and neck: Cranial nerves 2 through 12 are grossly within normal limits. No neck masses. No JV D. Throat clear. Neck: Supple. Chest: Clear. Heart: S1, S2. Abdomen: Soft. Extremities: Diminished dorsalis pedis and posterior tibial pulses on the right big toe on the plant ar and medial aspect. There is approximately 2.5 cm area of eschar that is hard, necrotic. No purul ent discharge. No surrounding erythema. There is tenderness all over. Laboratory Data: White count is 9.3. There is no left shift. INR is 1.48. Chemistry reviewed. BU N is 27. Creatinine is 1.44. The patient had bone scan which shows increased radiotracer uptake in all 3 phases involving the first distal phalanx, right foot suspicious for osteo. Doppler study done shows monophasic waveforms, right popliteal and more distal artery, may indicate significant stenosi s in region of the distal right superficial femoral popliteal artery, mild distal left lower extremit y arterial disease. Venous scan done. No evidence of DVT and foot x-ray reviewed. A small osseous fragment along the medial aspect of the first metatarsal, uncertain acuity. Assessment: 75-year-old gentleman with multiple medical problems, with osteomyelitis of right great toe with significant peripheral vascular disease. Recommendations: Continue vancomycin. The patient had diagnosed with MRSA previously. Also wound c are with collagenase and the patient needs cardiac evaluation for the vascular stenosis that is visua lized and see if angiogram would be helpful. I will follow this patient after the workup is being co [facility]pleted [facility] the [facility]. Plan of care discussed with Dr. Soares and the patient. AMBER/AZEB Voice ID: [id number] Report ID: [id number]
[2020-06-16] MEDS ORDERED: COLLAGENASE 30 GM OINTMENT TOP SCH (09:00)
== END 2020-06-15 15:30 | disposition home or self-care (01) ==
LOC: ER 19:50 → INTOOBSV 06-14 01:33 → ERHOLD 06-14 01:33 → 4TH 06-14 01:55
PROVIDERS: ADMIT Internal Medicine; ATTEND Internal Medicine
DX: M86.8X7 Other osteomyelitis, ankle and foot (principal); E11.621 Type 2 diabetes mellitus with foot ulcer; L97.519 Non-pressure chronic ulcer of other part of right foot with unspecified severity; N18.30 Chronic kidney disease, stage 3 unspecified; E11.22 Type 2 diabetes mellitus with diabetic chronic kidney disease; I48.91 Unspecified atrial fibrillation; Z20.822 Contact with and (suspected) exposure to COVID-19; Z79.01 Long term (current) use of anticoagulants; Z95.0 Presence of cardiac pacemaker; I70.235 Atherosclerosis of native arteries of right leg with ulceration of other part of foot; Z86.73 Personal history of transient ischemic attack (TIA), and cerebral infarction without residual deficits; Z79.4 Long term (current) use of insulin; Z86.718 Personal history of other venous thrombosis and embolism; K21.9 Gastro-esophageal reflux disease without esophagitis; I27.20 Pulmonary hypertension, unspecified; I13.0 Hypertensive heart and chronic kidney disease with heart failure and stage 1 through stage 4 chronic kidney disease, or unspecified chronic kidney disease; I50.30 Unspecified diastolic (congestive) heart failure; Z96.651 Presence of right artificial knee joint; Z89.412 Acquired absence of left great toe; E46 Unspecified protein-calorie malnutrition; D63.1 Anemia in chronic kidney disease; Z68.32 Body mass index [BMI] 32.0-32.9, adult; I87.2 Venous insufficiency (chronic) (peripheral)
CPT/HCPCS: 96365; 87040 ×2; 87070; 85025 ×3; 80048 ×2; 36415 ×2; 83735 ×2; 87205; 84100 ×2; 85610; 82947 ×6; 80076; 85730; 87077 ×2; 87186 ×2; 81003; 80202 ×2; 83036; 80053; 73630; 93923; 93970; 94760 ×2; 78315; 96375; 99285; U0003; J3370; J3475; J2270 ×5; J0692 ×3; J7050; J2405; A9503; G0378; J3590; J7040

== ENCOUNTER 2020-06-20 07:56 | Day surgery (SDC) | payer OTHER ==
--- NOTE | 2020-06-19 12:35 | RAD REPORT ---
EXAM DESCRIPTION: Ritu Ritchie And Cristiana (2 Views)06/19/2020 12:28 pm CLINICAL HISTORY: Preop for foot surgery COMPARISON: April 2020 FINDINGS: The lungs appear clear of acute infiltrate. The heart is mildly enlarged. Pacemaker leads are in place. PICC line in place IMPRESSION: No acute abnormalities displayed
--- NOTE | 2020-06-19 12:52 | EKG ---
Test Date: 2020-06-19 Test Time: 10:42:18 Fence Repairman: VICKY MEASUREMENT RESULTS: Intervals: Rate: 77 AR: QRSD: 104 QT: 396 QTc: 448 [place]: P: AR: QRS: 4 T: -29 INTERPRETIVE STATEMENTS: Atrial fibrillation with premature ventricular or aberrantly conducted complexes Possible Inferior infarct, age undetermined Abnormal ECG Compared to ECG 11/28/2017 16:01:29 Ventricular premature complex(es) now present Myocardial infarct finding now present Ventricular-paced complex(es) or rhythm no longer present ST (T wave) deviation no longer present Prolonged QT interval no longer present Electronically Signed On 06-19-20 12:51:34 CDT by Laci Hernandez
[2020-06-20] MEDS ORDERED: NA CHLORIDE 0.9% 500 ML ONE (08:37)
[2020-06-20 08:51] VITALS: TEMP 96.4
[2020-06-20] MEDS ORDERED: LIDOCAINE 1% 20 ML MDV ONE (09:23)
[2020-06-20] MEDS ORDERED: HEPA 1000U/500MLS 2,000 UNIT/1,000 ML BAG IV ONE (09:24)
[2020-06-20] MEDS ORDERED: MIDAZOLAM HCL 2 MG/2 ML INJ ONE (09:49)
[2020-06-20] MEDS ORDERED: FENTANYL CITR 100 MCG/2 ML ONE (09:49)
[2020-06-20] MEDS ORDERED: HEPARIN 10,000 UNIT/10 ML VIAL IV ONE (10:13)
[2020-06-20 12:29] VITALS: O2SAT 98
[2020-06-20 13:29] VITALS: BP 151/75
--- NOTE | 2020-06-20 20:44 | OP ---
Surgeon: Laci Hernandez MD Rn Mobile: Jameel Ramos. Procedure Performed: Abdominal angiogram with runoff. Indication: Peripheral arterial disease and wound infection in the toe. Indications: Mr. 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 I have started the Eliquis tomorrow. Procedure In Detail: He was prepped and draped in the routine sterile fashion. He was given Versed and fentanyl for sedation. We used a left groin approach. A 10 cc of Xylocaine, Seldinger technique . Angiography there was normal. Angio-Seal was used to close the case. The pigtail catheter was ad vanced over the renals. Abdominal angiogram with runoff showed normal renals, normal aorta, normal i liacs, normal SFA. He had a 90% stenosis in the popliteal on the right side with severe diffuse dise ase distally. I used a 5000 of heparin. A 0.014 wire, which was long enough to cross the lesion and then we attempted to do a dilatation with a 2.5 x 40 balloon. However, the balloon could not pass a round the iliac crest secondary to tortuosity and poor support with the balloon. I aborted the case. I think the best approach for him is to be referred to Vascular Surgery for an attempted antegrade approach for the right popliteal stenosis. He will continue his home medication, resume Eliquis jude rrow. There were no complications. Blood Loss: 5 mL. Postoperative Diagnoses: Severe peripheral artery disease, 90% popliteal stenosis on the right, woun d infection on the right, osteomyelitis. Plan: I think he needs to have an intervention done. I will send him to Dr. Avila in [place] with a CD with him. He will resume Eliquis tomorrow. Total Conscious Sedation: 60 minutes. NB/MODL Voice ID: [id number] Report ID: [id number]
== END 2020-06-20 14:35 | disposition home or self-care (01) ==
LOC: CCL 07:56
DX: I70.201 Unspecified atherosclerosis of native arteries of extremities, right leg (principal); E11.69 Type 2 diabetes mellitus with other specified complication; M86.9 Osteomyelitis, unspecified; I48.0 Paroxysmal atrial fibrillation; I11.0 Hypertensive heart disease with heart failure; I50.32 Chronic diastolic (congestive) heart failure; I35.1 Nonrheumatic aortic (valve) insufficiency; I27.20 Pulmonary hypertension, unspecified; E78.5 Hyperlipidemia, unspecified; Z95.0 Presence of cardiac pacemaker; Z79.01 Long term (current) use of anticoagulants; Z79.4 Long term (current) use of insulin; Z79.899 Other long term (current) drug therapy; Z88.8 Allergy status to other drugs, medicaments and biological substances; Z20.822 Contact with and (suspected) exposure to COVID-19; Z82.49 Family history of ischemic heart disease and other diseases of the circulatory system
CPT/HCPCS: 93005; 82947; 71046; 75630; 36247; U0003; C1893; C1760; C1887; J2250; J3010; J7040; J1644

== ENCOUNTER 2020-09-20 12:32 | Emergency (ER) | payer OTHER ==
--- OUTSIDE RECORDS SUMMARY | 2020-09-20 12:41 | XMS REPORT | Continuity of Care Document ---
:1945 Author Organization [facility] t Address [address] [place] [address] [address] [place] [address] Care Team Providers Name Role Phone Pcp Primary Care Physician Unavailable Esteban Duong DPM Attending Clinician ESTEBAN DUONG Attending Clinician Unavailable Esteban Duong DPM Attending Clinician EDUIN Attending Clinician Unavailable Eduin WATTS Attending Clinician Ponce Staley Attending Clinician ROSA EVANS Attending Clinician Unavailable Rosa Evans MD Attending Clinician Torie Saenz MD Attending Clinician Lyudmila Sellers MD Attending Clinician Bandar WATTS Attending Clinician Hossein Raphael MD Attending Clinician Eduin WATTS Attending Clinician Mary Rutherford Attending Clinician Unavailable DANNY Attending Clinician Unavailable Jacquelin Attending Clinician Augusta Lee Attending Clinician TORIE SAENZ Admitting Clinician Unavailable DANNY Admitting Clinician Unavailable Jacquelin Admitting Clinician Augusta Lee Admitting Clinician Payers Payer Name Policy Type Policy Number Effective Date Expiration Date Juanita stewart [facility] [id number] [facility] - MEDICARE MGD 00:00:00 - Medical [facility] MEDICARE [id number]/20-Present CHOICE REGIONAL [id number] PPO [facility] ADVANTAGE-[facility] ZZZHMO-MEDICARE - [id number] [facility] CIGNA MEDICARE - [id number] RNPO PCP [employer] SNP [id number] 2016 MEDICARE HMO-CIGNA 00:00:00 Problems Condition Condition Condition Status Onset Resolution Last Treating Co mments Source Name Details Category Date Date Treatment Clinician Date Right foot Right foot Disease Active [facility] pain pain 5-18 [facility] - 00:00: Medical 00 [place] Diabetes Diabetes Disease Active 2016-[facility] mellitus mellitus 2 [facility] - [facility] Medical 00 [place] Hypertensi Hypertensi Disease Active 2016-[address] on on 04-02 [facility] - 00:[facility]: Medical 00 [place] CHF CHF Disease Active 2016-[address] [facility] [address] (congestiv (congestiv 2- Yuliya kes - e heart e heart 00:00: Medical failure) failure) 00 Center Atrial Atrial Disease Active 2016-[address] fibrillati fibrillati 2- Yuliya kes - on on 00:00: Medical 00 [place] 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- [facility] - 00:00: Medical 00 [place] 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 - Yuliya kes - 00:00: Medical 00 [place] HEIDI (acute HEIDI (acute Disease Active 2016-[address] kidney kidney 2 [facility] - injury) injury) 00:00: Medical 00 [place] Pneumonia Pneumonia Disease Active 2016-[address] [facility] 2- [facility] - 00:00: Medical 00 [place] PAROXYSMAL Diagnosis Active 2016-09-14 Memoria AFIB, 7- 10:10:00 l BRADYCARDI 00:00: Pepe n A PAROXYSMAL 00 AFIB, BRADYCARDI A Active 08/28/2016 [facility] CCL/DUAL Diagnosis Active 2016-08-31 M emoria PMAKER 7 15:00:00 l IMPLANT/BS CCL/DUAL 00:00: He rmann /DX: PMAKER 00 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 Active 08/28/2016 [facility] 362.56 Diagnosis Active 2014-06-04 Mem oria EPIRETINAL 1-07 10:13:00 l MEMBRANE 362.56 00:00: Pepe n LEFT EYE EPIRETINAL 00 [facility] LEFT EYE Active 02/14/2014 [facility] Dizziness Problem Resolve 2016-09-15 M emoria (finding) d 00:18:55 l [facility] Dizziness (finding) Resolved Problem 09/15/2016 [facility] Edema Problem Resolve 2016-09-15 Niko reynold (finding) d 00:18:55 l Edema Tino (finding) Resolved Problem 09/15/2016 [facility] Syncope Problem Resolve 2016-09-15 Mem oria (disorder) d 00:18:55 l Syncope [facility] (disorder) Resolved Problem 09/15/2016 [facility] Bradycardi Problem Resolve 2016-09-15 Memoria a d 00:18:55 l (disorder) Pepe n Bradycardi a (disorder) Resolved Problem 09/15/2016 [facility] Chest pain Problem Resolve 2016-09-15 Memoria (finding) d 00:18:55 l Chest Tino pain (finding) Resolved Problem 09/15/2016 [facility] Cerebrovas Problem Resolve 2016-09-15 Memoria cular d 00:18:55 l accident [facility] (disorder) Cerebrovas cular accident (disorder) Resolved Problem 09/15/2016 [facility] Allergies, Adverse Reactions, Alerts Allergy Allergy Status Severity Reaction(s) Onset Inactive Treating Comm ents Source Name Type Date Date Clinician Metformi Propensi Active [facility] - adverse 00:00: Medical reaction 00 [place] s Metoprol Propensi Active [facility] to 18 [facility] - adverse 00:00: Medical reaction 00 [place] s Family History Family Member Diagnosis Comments Start Date Stop Date Source Natural brother Cancer [facility] Natural brother Diabetes [facility] Natural brother Hypertension [facility] Natural mother Heart disease [facility] Natural sister Hypertension [facility] Social History Social Habit Start Date Stop Date Quantity Comments Source Sex Assigned At [facility] Tobacco use and 2020-07-02 2020-07-02 Never used [facility] - exposure 00:00:00 00:00:00 [facility] Alcohol intake 2020-07-02 2020-07-02 Current [facility] es - 00:00:00 00:00:00 non-drinker of Medical Ce nter alcohol (finding) Tobacco Comment 2020-06-26 2020-06-26 quit 30 yrs ago [facility] - 00:00:00 00:00:00 [facility] Social History 2014-03-05 2014-03-05 [facility] 17:12:04 17:12:04 Smoking Status Start Date Stop Date Source Former smoker 2020-07-02 00:00:00 2020-07-02 00:00:00 [facility] Medications Ordered Filled Start Stop Current Ordering Indication Dosage Frequency Signature Comments Components Source Medication Medication Date Date Medication? Clinician (SIG) Name Name glipiZIDE Yes 5mg QD Take [address] [facility] (GLUCOTROL) 5-28 by mouth Luke s - 10 MG 16:36: daily . Medical tablet 41 [place] amiodarone Yes 200mg QD Take [address] (PACERONE) 5-28 mg by [facility] - 200 MG 16:36: mouth Medical tablet 41 daily. [place] spironolact Yes 25mg Q.5D Take [address] one 5-28 by mouth 2 [facility] - (ALDACTONE) 16:36: (two) Medic al 25 MG 41 times Center tablet daily. docusate Yes 100mg Q.5D Take [address] sodium 5-28 mg by [facility]ukes - (COLACE) 16:36: mouth 2 Medica l 100 MG 41 (two) Center capsule times daily. multivitami Yes 1{capsu QD Take [address] n capsule 5-28 le} capsule by Luke s - 16:36: mouth Medical 41 daily. [place] HYDROcodone Yes 1{tbl} Take [address] -acetaminop -28 tablet by Cl [place] (NORCO 00:00: mouth Medica l 5-325) 00 every 6 Center 5-325 mg (six) per tablet hours as needed for Pain. Max Daily Amount: 4 tablets senna-docus 2020- No 1{tbl} Take [address] ate 07-05 tablet by Yuli - (SENOKOT S) 00:00: 23:59 mouth Medi park 8.6-50 mg 00 :00 every Center per tablet night as needed for Constipati on for up to 30 days. amoxicillin 2020- No 1{tbl} Take [address] -clavulanat 07-05 tablet by Yuliya henedrson 00:00: 23:59 mouth Medical (AUGMENTIN) 00 :00 every 12 Cent er 875-125 mg (twelve) per tablet hours for 7 days. doxycycline 2020- No 100mg Take [address] (MONODOX) 07-05 capsule Yuliyakes - 100 MG 00:00: 23:59 (100 mg Medical capsule 00 :00 total) by Center mouth every 12 (twelve) hours for 7 days. vancomycin 2020- No 1250mg Inject [facility] (VANCOCIN) 06-18 1,250 mg Luke s - injection 00:00: 00:00 intravenou M edical 1000 mg 00 :00 sly . Center vial Eliquis 2.5 Yes 2.5mg Q.5D Take 2.[address] MG tablet 5-09 mg by Yuli - 00:00: mouth 2 Medical 00 (two) Center times daily . gabapentin Yes 100mg Q.[id number] Take [address] (NEURONTIN) 06-15 [id number] mg by Augusta ukes - 100 MG 00:00: 3D mouth 3 Medical capsule 00 (three) Center times daily . HYDROcodone 2020- No 1{tbl} Take [address] -acetaminop 06-15 tablet by Yuliya [place] (NORCO 00:00: 00:00 mouth Medic al 5-325) 00 :00 every 6 Center 5-325 mg (six) per tablet hours as needed . potassium No 20meq QD Take [address] chloride SA 02-08 tablet (20 L ukes - (K-DUR,KLOR 00:00: 00:00 mEq total) Medical -CON) 20 00 :00 by mouth Center MEQ tablet daily. glipiZIDE No 10mg Take 1 [facility] t (GLUCOTROL) 02-0818 tablet (10 L ukes - 10 MG 00:00: 00:00 mg total) Medica l tablet 00 :00 by mouth 2 Center (two) times daily before meals. Diltiazem No 60 mg, Memori a 09-13 Route: PO, l 14:00: Drug form: TAB, Daily, Dosing Weight 116.364, kg, Start date: 09/13/16 9:00:00 CDT, Duration: 30 day, Stop date: 10/12/16 9:00:00 CDT metoprolol No Notes: Memor ia tartrate 09-13 (Same as: l 02:00: Lopressor) Insulin No 60 Memoria regular 8-05 units) l 19:37: WASTE: F/P - Black; E - Municipal Trash Bin Stable for 28 days at room temperatur e Expires in days from ____Date Acetaminoph Yes 1 tab, PO, Memoria en 300 MG / 8-05 Q4H, PRN l Codeine 18:19: Pain Score Herm leonard Phosphate 00 4-6, 0 30 MG Oral Refill(s) Tablet Dextrose No 25 gm, 50 Niko reynold 50% Syringe 8-05 mL, Route: l 16:50: IVP, Drug Form: INJ, Dosing Weight 116.364, kg, PRN, PRN Blood Glucose Results, Start date: 09/12/16 11:50:00 CDT, Duration: 30 day, Stop date: 10/12/16 11:49:00 CDT Glucagon No 1 mg, Memoria 805 Route: IM, l 16:50: Drug form: PDR/INJ, PRN, Dosing Weight 116.364, kg, PRN Blood Glucose Results, Start date: 09/12/16 11:50:00 CDT, Duration: 30 day, Stop date: 10/12/16 11:49:00 CDT valsartan No Notes: Memori a 8-05 Same as l 14:00: Diovan Cefazolin No Notes: Memori a 8-05 (Same As: l 04:00: Ancef, Kefzol) MEDICATION WASTE Product Size: 1000 mg Product Wasted: _0_ mg Calcium No Notes: Memoria Gluconate 09-12 WASTE: F/P l 03:33: - Sink; E - Municipal Trash Bin Magnesium No Notes: Memori a Oxide 09-12 (Same as: l 03:33: Mag-Ox 400) Magnesium oxide 887xy=460m g elemental magnesium Dose=____m g magnesium oxide [...] CDT Potassium No Notes: Memori a Chloride - (Same as: l 03:33: KCL) Infuse over 2 hours. potassium No Notes: Memori a phosphate-s - (Same as: l odium 03:33: Phos-NaK) phosphate 00 Each 1.5 250 mg-280 gm pkt has mg-160 mg 250mg oral powder phosphorou for s. Mix reconstitut w/2.5oz ion water and stir. potassium No Notes: Memori a phosphate 8- (Same as: l 03:33: K Phosphate. ) 1 mMol phoshate has 1.47 mEq potassium Infuse over 4 hours Magnesium No Notes: Memori a Sulfate 09-12 WASTE: F/P l 03:22: - Sink; E [facility] 00 - Municipal Trash Bin Magnesium No Notes: Memori a Sulfate 09-12 WASTE: F/P l 03:21: - Sink; E [facility] 00 - Municipal Trash Bin Potassium No Notes: Memori a Chloride 09-12 (Same as: l 03:21: K-Dur 20) "Do Not Crush" With food and full glass of water Pradaxa No Notes: DO Memor ia 09-12 NOT break, l 02:00: chew or open capsules for administra tion. metoprolol No 25 mg, Memor ia tartrate 09-12 Route: PO, l 02:00: Drug form: [facility] 00 TAB, Q12H, Dosing Weight 116.364, kg, Start date: 09/11/16 21:00:00 CDT, Duration: 30 day, Stop date: 10/11/16 9:00:00 CDT Lasix No 20 mg, Memoria 09-11 Route: l 23:38: IVP, Drug form: INJ, ONCE, Dosing Weight 116.364, kg, Start date: 09/11/16 18:38:00 CDT, Stop date: 09/11/16 18:38:00 CDT Diltiazem No Notes: Memori a 09-11 (Same as: l 22:51: Cardizem) Tino tramadol No 50 mg, PO, Mem oria [...] tartrate 09-11 (Same as: l 22:15: Lopressor) Tino 00 Acetaminoph No 1 tab, PO, Memoria en 300 MG / 09-11 Q4H, PRN l Codeine 22:00: Pain Score Herm leonard Phosphate 00 4-6, # 12 15 MG Oral tab, 0 Tablet Refill(s) cephalexin Yes 500 mg = 1 M emoria 500 mg oral 804 cap, PO, l capsule 22:00: TID, # 15 Odalys nn 00 cap, 0 Refill(s) acetaminoph No Notes: Do M emoria en-codeine 09-11 not exceed l #3 21:59: 4gm/day of acetaminop hen. (Same as: Tylenol with Codeine [...] mg = 1 Memoria in 100 MG 03-05 tab, PO, l Oral Tablet 17:21: Daily, 0 He rmann [Invokana] 00 Refill(s) lisinopril Yes 20 mg = 1 Me moria 20 mg oral 03-05 tab, PO, l tablet 17:21: Daily, 0 Tino 00 Refill(s) glyBURIDE 5 Yes 10 mg = 2 M emoria mg oral 03-05 tab, PO, l tablet 17:21: BID, 0 Tino 00 Refill(s) Aspirin Low Yes PO, Daily, Memoria Dose 81 mg 03-05 0 l oral tablet 17:21: Refill(s) H ermann 00 Hydrochloro Yes 1 tab, PO, Memoria thiazide 50 03-05 Daily, # l MG / 17:21: 30 tab, 0 Tino Triamterene 00 Refill(s) 75 MG Oral Tablet Vital Signs Vital Name Observation Time Observation Value Comments Source Systolic blood 2020-07-05 10:59:00 113 mm[Hg] [facility] Diastolic blood 2020-07-05 10:59:00 51 mm[Hg] [facility] Heart rate 2020-07-05 10:59:00 80 /min [facility] Body temperature 2020-07-05 10:59:00 36.17 Madeline [facility] Respiratory rate 2020-07-05 10:59:00 17 /min [facility] Oxygen saturation in 2020-07-05 10:59:00 97 /min [facility] - Arterial blood by Medical Ce nter Pulse oximetry Body height 2020-06-26 09:00:00 182.9 cm [facility] Body weight 2020-06-26 09:00:00 110.088 kg [facility] BMI 2020-06-26 09:00:00 32.92 kg/m2 [facility] Temperature Oral (F) 2016-09-12 20:06:00 97.9 F [facility] Respitory Rate 2016-09-12 19:00:00 Memori al [facility] Systolic (mm Hg) 2016-09-12 19:00:00 Niko rial Tino Diastolic (mm Hg) 2016-09-12 19:00:00 Mem orial Tino Respitory Rate 2016-09-12 18:00:00 Memori al Tino Systolic (mm Hg) 2016-09-12 18:00:00 Niko rial [facility] Diastolic (mm Hg) 2016-09-12 18:00:00 Mem orial [facility] Respitory Rate 2016-09-12 17:00:00 Memori al Tino Systolic (mm Hg) 2016-09-12 17:00:00 Niko rial [facility] Diastolic (mm Hg) 2016-09-12 17:00:00 Mem orial Tino Temperature Oral (F) 2016-09-12 12:51:00 97.9 F [facility] Temperature Oral (F) 2016-09-12 10:38:00 97.6 F [facility] BMI Calculated 2016-09-11 16:02:00 Memori al [facility] Weight 2016-09-11 16:02:00 [facility] Height 2016-09-11 16:02:00 182.88 cm [facility] Systolic (mm Hg) 2014-03-06 20:30:00 Niko rial [facility] Diastolic (mm Hg) 2014-03-06 20:30:00 Mem orial [facility] Respitory Rate 2014-03-06 20:30:00 Memori al Tino Diastolic (mm Hg) 2014-03-06 20:15:00 Mem orial [facility] Systolic (mm Hg) 2014-03-06 20:15:00 Niko rosenthal [facility] Respitory Rate 2014-03-06 20:15:00 John al [facility] Diastolic (mm Hg) 2014-03-06 20:02:00 Kacy sevilla [facility] Systolic (mm Hg) 2014-03-06 20:02:00 Niko rosenthal Tino Respitory Rate 2014-03-06 20:02:00 John ferris Tino Heart Rate 2014-03-06 17:15:00 [facility] Heart Rate 2014-03-05 17:17:00 [facility] Calculated 2014-03-05 16:24:00 John Ramann Weight 2014-03-05 16:24:00 [facility] Height 2014-03-05 16:24:00 180.34 cm [facility] Procedures Procedure Date / Time Performed Performing Clinician Sour e XR FOOT 3 VIEWS RIGHT 2020-09-04 12:18:00 Aleksandr Duong [facility] POCT-GLUCOSE METER 2020-07-05 11:02:00 [facility] POCT-GLUCOSE METER 2020-07-05 07:52:00 [facility] CBC W/PLT COUNT & AUTO 2020-07-05 04:20:00 [facility] - DIFFERENTIAL [facility] BASIC METABOLIC PANEL 2020-07-05 04:20[facility] (CELLAVISION MANUAL 2020-07-05 04:20:00 [facility] L ukes - DIFF) [facility] POCT-GLUCOSE METER 2020-07-04 21:24:00 [facility] POCT-GLUCOSE METER 2020-07-04 17:38:00 [facility] W/[facility]T [facility] & AUTO 2020-07-04 15:02:00 [facility] S t [facility] - DIFFERENTIAL [facility] BASIC METABOLIC PANEL 2020-07-04 15:02:00 Bandar [facility] (7) [facility] (CELLAVISION MANUAL 2020-07-04 15:02:00 Bandar [facility] 2020-07-04 12:11:00 [facility] POCT-GLUCOSE METER 2020-07-04 12:09:00 [facility] PO[facility]UCOSE METER 2020-07-04 07:25:00 [facility] 2020-07-04 04:37:00 [facility] APTT 2020-07-03 23:27:00 [facility] POCT-GLUCOSE METER 2020-07-03 21:06:00 [facility] POCT-[facility]UCOSE METER 2020-07-03 17:12:00 [facility] 2020-07-03 15:25:00 [facility] APTT 2020-07-03 14:21:00 [facility] POCT-GLUCOSE METER 2020-07-03 12:08:00 [facility] POCT-GLUCOSE METER 2020-07-03 07:56:00 [facility] SARS-COV2/RT-PCR ([facility] & 2020-07-03 04:47:[address] [facility] CBC (HEMOGRAM ONLY) 2020-07-03 04:09:00 Christian Sellers [facility] BASIC METABOLIC PANEL 2020-07-03 04:09:00 Christian Sellers [facility] (7) [facility] APTT 2020-07-03 04:09:00 [facility] POCT-GLUCOSE METER 2020-07-02 17:42:00 [place] Lyudmila [facility] CBC (HEMOGRAM ONLY) 2020-07-02 17:31:00 [facility] VANCOMYCIN LEVEL, RANDOM 2020-07-02 15:53:00 [facility] POCT-GLUCOSE METER 2020-07-02 14:29:00 [facility] TISS[facility]AM 2020-07-02 13:10:00 Rhoda [facility] AMPUTATION,TOE 2020-07-02 12:39:00 Rhoda [facility] POCT-GLUCOSE METER 2020-07-02 11:35:00 [facility] ECG 12-LEAD 2020-07-02 11:28:39 Cong Leon [facility] POCT-GLUCOSE METER 2020-07-02 07:52:00 [facility] SARS-COV2/[facility] ([facility] & 2020-07-02 04:34:00 Christian Sellers [facility] - REF LABS) [facility] APTT 2020-07-02 04:32:00 [facility] CBC W/PLT COUNT & AUTO 2020-07-02 02:44:00 Christian Sellers [facility] BASIC METABOLIC PANEL 2020-07-02 02:44:00 Christian Sellers [facility] (7) [facility] APTT 2020-07-02 02:44:00 [facility] (CELLAVISION MANUAL 2020-07-02 02:44:00 Christian Sellers [facility] POCT-GLUCOSE METER 2020-07-01 23:07:00 Christian Sellers [facility] APTT 2020-07-01 17:35:00 [facility] POCT-GLUCOSE METER 2020-07-01 16:50:00 Crhistian Sellers [facility] APTT 2020-07-01 13:45:00 [facility] POCT-GLUCOSE METER 2020-07-01 11:56:00 Christian Sellers [facility] POCT-GLUCOSE METER 2020-07-01 07:22:00 Christian Sellers [facility] APTT 2020-07-01 05:24:00 [facility] CBC W/PLT COUNT & AUTO 2020-07-01 05:24:00 Christian Sellers [facility] BASIC METABOLIC PANEL 2020-07-01 05:24:00 Christian Sellers [address] VANCOMYCIN LEVEL, RANDOM 2020-07-01 05:24:00 Mino Hui [facility] HEPATIC FUNCTION PANEL 2020-07-01 05:24:00 Too Pino [facility] (CELLAVISION MANUAL 2020-07-01 05:24:00 Christian Sellers [facility] POCT-GLUCOSE METER 2020-07-01 00:14:00 Christian Sellers [facility] APTT 2020-06-30 23:39:00 [facility] APTT 2020-06-30 16:01:00 [facility] APTT 2020-06-30 14:06:00 [facility] APTT 2020-06-30 13:27:00 [facility] POCT-GLUCOSE METER 2020-06-30 12:00:00 [facility]lo[facility] POCT-GLUCOSE METER 2020-06-30 08:07:00 Marlo [facility] Lyudmila [facility] APTT 2020-06-30 07:29:00 [facility] VANCOMYCIN LEVEL, RANDOM 2020-06-30 05:20:00 Mino Hui [facility] CBC W/PLT COUNT & AUTO 2020-06-30 05:20:00 [facility] BASIC METABOLIC PANEL 2020-06-30 05:20:00 [facility] (7) [facility] (CELLAVISION MANUAL 2020-06-30 05:20:00 [facility] APTT 2020-06-30 00:01:00 [facility] APTT 2020-06-29 21:53:00 [facility] POCT-GLUCOSE METER 2020-06-29 20:55:00 [facility] POCT-GLUCOSE METER 2020-06-29 17:07:00 [facility] APTT 2020-06-29 13:52:00 [facility] CBC (HEMOGRAM ONLY) 2020-06-29 13:52:00 [facility] POCT-GLUCOSE METER 2020-06-29 12:02:00 Marlo [facility] POCT-GLUCOSE METER 2020-06-29 07:56:00 [facility] CBC W/PLT COUNT & AUTO 2020-06-29 06:48:00 Barbara Colón [facility] (CELLAVISION MANUAL 2020-06-29 06:48:00 Barbara Colón [facility] BASIC METABOLIC PANEL 2020-06-29 06:48:00 Barbara Colón [facility] ([address] [place] [address] APTT 2020-06-29 06:48:00 [facility] MAGNESIUM 2020-06-29 06:48:[address] [facility] APTT 2020-06-29 00:13:00 [facility] APTT 2020-06-28 21:37:00 [facility] POCT-GLUCOSE METER 2020-06-28 21:24:00 Christian Sellers [facility] VANCOMYCIN LEVEL, TROUGH 2020-06-28 20:04:00 Barbara Colón [facility] POCT-GLUCOSE METER 2020-06-28 17:31:00 Christian Sellers [facility] VENOGRAM 2020-06-28 14:56:00 Eil Denny [facility] APTT 2020-06-28 13:36:00 [facility] POCT-GLUCOSE METER 2020-06-28 11:40:00 Christian Sellers [facility] POCT-GLUCOSE METER 2020-06-28 07:39:00 Christian Sellers [facility] CBC W/PLT COUNT & AUTO 2020-06-28 04:37:00 Christian Sellers [facility] (CELLAVISION MANUAL 2020-06-28 04:37:00 Christian Sellers [facility] BASIC METABOLIC PANEL 2020-06-28 04:37:00 Christian Sellers [facility] ([address] [place] [address] APTT 2020-06-28 04:37:00 [facility] POCT-GLUCOSE METER 2020-06-27 23:12:00 Christian Sellers [facility] APTT 2020-06-27 21:25:00 [facility] APTT 2020-06-27 18:32:00 [facility] POCT-GLUCOSE METER 2020-06-27 18:07:00 Marlo Christian Luydmila [facility] POCT-GLUCOSE METER 2020-06-27 11:55:00 Marlo Christian Lyudmila [facility] APTT 2020-06-27 11:47:00 [facility] POCT-GLUCOSE METER 2020-06-27 07:18:00 Marlo Fernandojocelynn Coreas [facility] CBC W/PLT COUNT & AUTO 2020-06-27 05:36:00 Christian Sellers [facility] (CELLAVISION MANUAL 2020-06-27 05:36:00 Marlo Marilynnsanjana Coreas [facility] BASIC METABOLIC PANEL 2020-06-27 05:36:00 Marlo Marilynnsanjana Coreas [facility] (7) [facility] APTT 2020-06-27 05:36:00 [facility] HC ARTERIAL DOPPLER LEGS 2020-06-27 00:18:00 Nemo Perez [facility] APTT 2020-06-26 22:43:00 [facility] POCT-GLUCOSE METER 2020-06-26 17:33:00 Christian Sellers [facility] CBC (HEMOGRAM ONLY) 2020-06-26 15:21:00 [facility] APTT 2020-06-26 15:21:[address] [facility] POCT-GLUCOSE METER 2020-06-26 12:23:00 [place] Lyudmila [facility] CBC W/PLT COUNT & AUTO 2020-06-26 03:35:00 Nemo Perez [facility] (CELLAVISION MANUAL 2020-06-26 03:35:00 [place], [facility] BASIC METABOLIC PANEL 2020-06-26 03:35:00 [facility] () [facility] HEMOGLOBIN A1C 2020-06-26 03:35:00 [facility] C-REACTIVE PROTEIN 2020-06-26 03:35:00 [facility] VITAMIN B12 AND FOLATE 2020-06-26 03:35:00 [facility] XR FOOT 3 VIEWS RIGHT 2020-06-25 23:30:00 [facility] VENOUS DOPPLER LEG, 2020-06-25 22:58:00 [facility] SARS-COV2/RT-PCR ([facility] & 2020-06-25 21:40:00 [place] [facility] BLOOD CULTURE 2020-06-25 21:40:00 [facility] 2020-06-25 18:39:00 Fela [facility] CBC W/PLT COUNT & AUTO 2020-06-25 18:36:[address] [facility] (CELLAVISION MANUAL 2020-06-25 18:36:00 Suri Evans [facility] BLOOD CULTURE 2020-06-25 18:36:00 Fela shaun [facility] BASIC METABOLIC PANEL 2020-06-25 18:36:00 Suri Evans [facility] () [facility] LACTIC ACID, VENOUS 2020-06-25 18:36:[address] [facility] PT/APTT 2020-06-25 18:36:00 Fela [facility] C-REACTIVE PROTEIN 2020-06-25 18:36:00 Fela shaun [facility] CARDIAC CATH REPORT - 2020-06-25 00:00:00 Provider, Default [facility] - SCAN Scanning [facility] [place] [facility] knee<sup>1</sup> Procedure<sup>2</sup> [facility] Plan of Care Planned Activity Planned Date Details Comments Source Future Scheduled 2020-12-[address] [facility] - Test 00:00:00 measurement Medical Center (procedure) [code = 55112438] Future Scheduled 2020-10-09 INFLUENZA VACCINE (#1) [facility] Test 00:00:00 [code = INFLUENZA Medical Ce nter VACCINE (#1)] Future Scheduled 2020-02-[address] [facility] - Test 00:00:00 (12+) [code = Medical Center DEPRESSION SCREENING (12+)] Future Scheduled 2020-02-09 FALLS RISK SCREENING [facility] - Test 00:00:00 [code = FALLS RISK Medical C enter SCREENING] Future Scheduled 2018-01-30 Urine screening for [facility] - Test 00:00:00 protein (procedure) [facility] Center [code = 706622135] Future Scheduled 2017-02-[address] [facility] - Test 00:00:00 WELLNESS (YEAR 2 or Medical Center FIRST YEAR if no IPPE) [code = MEDICARE ANNUAL WELLNESS (YEAR 2 or FIRST YEAR if no IPPE)] Future Scheduled 2008-06-12 PNEUMOCOCCAL 65+ YRS [facility] - Test 00:00:00 (1 of 1 - Medical Center OFRE25_Rtthzye PCV13) [code = PNEUMOCOCCAL 65+ YRS (1 of 1 - BULH88_Wivpsew PCV13)] Future Scheduled 1993-06-12 SHINGLES VACCINES ([address] [facility] - Test 00:00:00 of 2) [code = SHINGLES Medic al Center VACCINES (1 of 2)] Future Scheduled 1962-06-12 DTAP/TDAP/TD VACCINES [facility] Test 00:00:00 (1 - Tdap) [code = Medical C enter DTAP/TDAP/TD VACCINES (1 - Tdap)] Future Scheduled 1961-06-12 HEPATITIS C [facility]CREENING [facility] Test 00:00:00 [code = HEPATITIS C Medical Center SCREENING] Future Scheduled 1955 COVID-19 VACCINE (1) [facility] - Test 00:00:00 [code = COVID-[address] VACCINE (1)] Future Scheduled 1953-06-[address] DI[address]IC EYE EXAM [facility] - Test 00:00:00 [code = DIABETIC EYE Medical Center EXAM] Future Scheduled 1953-06-[address] [facility] - Test 00:00:00 examination Medical Center (regime/therapy) [code = 377609465] Encounters Start End Encounter Admission Attending Care Care Encounter Source Date/Time Date/Time Type Type Clinicians Facility Department ID 2020-09-04 2020-09-04 Outpatient ROMMEL DUONG [facility] [id number] [facility] 10:11:54 11:24:16 [facility]LEKSANDR [facility] 2020-08-21 2020-08-21 Outpatient RHODA [facility] [id number] [facility] 10:04:48 11:02:48 ALEKSANDR [facility] 2020-08-21 2020-08-21 Office ROMMEL Duong [id number] 10:04:48 11:02:48 Visit Aleksandr Esteban AMBULATOR 350.1.13.21 Y 0.2.7.2.686 [id number] 2020-08-07 2020-08-07 Outpatient ROMMEL DENNY [facility] [id number] [facility] 09:18:00 10:21:40 CAINMARILOU [facility] 2020-08-07 2020-08-07 Outpatient RHODA [facility] [id number] [facility] 09:18:28 10:13:08 ALEKSANDR [facility] 2020-08-07 2020-08-07 Office ROMMEL Duong [id number] 09:18:28 10:13:08 Visit Aleksandrjefe Cross AMBULATOR 350.1.13.21 Y 0.2.7.2.686 [id number] 2020-08-07 2020-08-07 Office ROMMEL Denny 1.2.840.114 [id number] 09:18:00 09:33:00 Visit Cainmarilou AMBULATOR 350.1.13.21 Y 0.2.7.2.686 [id number] 2020-07-25 2020-07-25 Office ROMMEL Kaur [id number] 10:24:58 11:19:37 Visit Peg AMBULATOR 350.1.13.21 Ponce Y 0.2.7.2.686 [id number] 2020-07-17 2020-07-17 Office ROMMEL Duong 1.2.840.114 [id number] 09:14:49 10:09:41 Visit Aleksandr Cross AMBULATOR 350.1.13.21 Y 0.2.7.2.686 [id number] 2016-09-11 2016-09-12 [facility] [id number] [facility] 15:41:00 21:00:[address] 2016-09-11 2016-09-12 Outpatient Jacquelin [facility] [id number] 10:41:00 16:00:00 Eddie 2014-03-06 2014-03-06 OBS [facility] [id number] 16:57:00 21:00:[address] 2014-03-06 2014-03-06 Outpatient Rosa 2.16.840. 2.16.840.1. 4 [id number] 10:57:00 15:00:00 Jean Carlos Deras 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 Bone demineralization of the metatarsal head without cortical erosion. Vascular calcifications. Dorsal and plantar calcaneal enthesophytes. 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 Attention on follow-up. Signed: Barbara Eubanks Verified Date/Time: 09/04/2020 12:32:23 Reading Location: [facility] Reading Room [address] [place] [address] foot 3 views 2020-08-09 Interface, External [facility] right 8 Ris In - 09/04/2020 [facility] - 12:32:00 12:34 PM CDTFINAL Medical REPORT PATIENT ID: [place] [id number] Exam: Right foot three views History: Postoperative evaluation Comparison: June 25, 2020 Findings: Amputation across the MTP joint of the hallux with soft tissue irregularity. Bone demineralization of the metatarsal head without cortical erosion. Vascular calcifications. Dorsal and plantar calcaneal enthesophytes. 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 Attention on follow-up. Signed: Barbara Eubanks Verified Date/Time: 09/04/2020 12:32:23 Reading Location: [facility] Reading Room [facility] Tissue Exam 2020-07-30 16:35:00 Test Item Value Reference Range Interpretation Comme nts Case Report (test code = 104) Surgical Pathology Report Case: [id number] Authorizing Provider: Aleksandr Duong DPM Collected: 07/02/2020 01:10 PM Ordering Location: [facility] Received: 07/02/2020 01:28 PM SERVICES Pathologist: Nadine Butler MD Specimen: Toe, Right, right great toe DIAGNOSIS (test code = 3220) f7gxoGHuXDXek5baLEAohWXgNvEiFgOaXtZgAy dWMxIHtccnRmMVxlcGljOTIwMlxhbnNpXHNwbHRw A5AjfiymJWpcGO7mLH1qaYhkzGCutZReZHEhUoEp r8bgd386zXZif0tcRWLVmantdDp4jXyqN36xp6T6 ZhelP93niTNoPJswvFIawbvphzEiPFLJD6DhRVJS I8mYPAaWBMdRWVesPL9WJRHEFEuGDjobuVHiCA6q T3EGP2VTAdZhBQ1TQ7xSWH2PEUBHAR6aQT1FUIOA SyQrLSbUZ7UVYWIzjjWpWQIMFiFdG0rDGANTItIE Vh8ILrXWUUDNFJTJPZ3LF4TCE2eMPBWrroKvGIYQ OxLeNHaZL0XDWCDOTLSFKHIGPQYMJB0oMZ2XH1qX UZOgYkarAL8JVUBPFNYTN9LVIZWPA5AUN8SpzOJc QV7rFQSBBISLXKRCEQNSHzBBJRMNRINQYBRNWGYe LJDNN3xPXAKRKqFUWYICR7PUGRFzmJJhFQ6aAiIL IRAKBvAzGq2VON2LMHzEDwLQJ5maqNTwAKEubs00 YRQ5EfBwo8Q3DHN0VXPiEZOpc9jnUMQjkFFwHoKg IbYxEtDlAcuvrJSsTYLmLrAnq6awp299pOXoo1al TXFdFoT6yLFkSREuqLKlF436SLCtJKbim8uhu7Ok WLZhlRPvi1L1BVVFkszuzFn7mPhmC95ae4T4Stvx E7awCMQeCSRnD0AlJK3fOLZwLwh1AMY7CRV8KYBv BVKcE4ErVX8sTPZqvBBmBFs6j4bkaZmyXXVbCWJ0 m8vtLRotklMuQR3sqq9vcZy6r5aewcDiRNViIBMb hHNSJEPlM3TwgUliAh9qjYi3oNgmRffiBOQ9Udk5 OH7itu47ltm2pTyhUUJaccdgSsE9HTjbQHShrngt XLt8VGbyCIAggHO9MGYjsCVtV7UjLKMwVY5fzxf9 FGX6OCvfDOBbXsT4MYWaaNLpHJTljXnfBPeeq215 QQF9XvOxLQ0iG7Ipn0C8fH6xhLYzRFEytZDxFeBz KMYvkj6heVPwBVrug3EfHIS1nhY8jPRkiRVeJEZj EaH2AQckZH1fix87HHWtFCQ6xf4jnFIjmGstzdYm eAYuBOetQ0NjINCqw636IEMsG5CxYILdy6P4chIa PmRoZRCtpTE2ajI3UUTaYI3kypgkw8ftXYieKUcq PUCmknU5soJ3VHZcyMKuR6DrnC6sVFAsDW9mzrve b3noTWB9QTgtTXAsVRY9NlQnNFEhl2Xrlqt6DtNw a9TuoDUxMUskH27rg232KRXighStC3tasJIbmowk dYOfpycfPVeguyW4SRCgLIjrnzrtXHHwCTmbE5bz BlLfDWSrgErfODoga1LwSPVxVDQwWyFqgJVmBDWr Sky5APGjbQNpHDWjRrAiN0zxpgimNdXHMQKef7ud B4kcdRGYyIBsH7QrYIddhxMuTVqjSMfxNJIfMPZ8 XR33QPW7XZMcvi85 CPT Code(s) (test code = 3357) k0echXJkTKGlqZZ7RqDiPGJty9see1ApyXZj cGFy MYzdtARenxMldr17vKH3xS99UP6yNEJcYqC6QZQv fjB9Hlz1TOPoDSTeqVMuM163x6gtp7jxcuSyvOD4 zZunUSSqEMBuNNkzFZSsSpTcOIshBOI1VDz5XxJu XHBhcn0= CLINICAL HISTORY (test code = 3356) y6bchYFsJUVfqYV7FxYpVIQcs6lle3N sdHBncGFy WSchkQKogyQfbx61sMD7rY38CX5kKQFbUnP7EHDt gpF7Edv4SMDxUZHueOTxA979x3ctz0kvksVwnFR3 vHbtTAFhPOIaQKirNDTdVdMuU3RvS7CpodQbqWHe fQ== SPECIMEN SOURCE (test code = 3377) s9edbTUaJBXfrND6HjCtKZRxa8eya2Lj dHBncGFy MHzghKQhcxVlet77lPO9rA01FD7hKNQaTlO9UWGm qjQ6Ldz7PJMvCMTdsOAmA486q5fsi4pkqbCaoQW2 fSveATVqHCQeGYdyADEvDnUbZS4gKFTskThunHjh YXJ9 GROSS DESCRIPTION (test code = 3366) f0qarYJxVRZwcSSlPuUfKUHdEQKab1 lcZGVmbGFu [file] F9FFIIZnMLQxtz1= MICROSCOPIC DESCRIPTION (test code = w7dhzGJeCLMzyCG0QuSdPDCnz3gea3 BsdHBncGFy 3371) BXfmgHYydjZjid54vRD7fQ18QD9dSDSdXbU4WVHv edQ3Pdq5HMFpJOQcwBUgP095h9kzz0nlvpQwjBH1 yDmuQYOnOCYtAQzrRBKnXhRpLFZFNv8KTGHRJSMy cn0= [facility] [id number] 16:35:00Surgical Pathology Report Case: [id number] Authorizing Provider: Aleksandr Duong DPM Collected: 07/02/2020 01:10 PM Ordering Location: [facility] Received: 07/02/2020 01:28 PM SERVICES Pathologist: Nadine Butler MD Specimen: Toe,Right, right great toe FOOT, RIGHT HALLUX, AMPUTATION:- GANGRENE INVOLVING SKIN AND SOFT TISSUE- BONE WITH INTER-TRABECULAR NECROSIS- SOFT TISSUE AT THE MARGIN INVOLVED BY INFLAMMATORY PROCESS- ARTICULAR CARTILAGE AT THE MARGIN, UNREMARKABLE- NEGATIVE FOR MALIGNANCY Signing Pathologist Direct Phone Line: [phone] signed by Nadine Butler MD on 07/30/2020 at 4:35 [id number]; [id number], rightA. Received fresh labeled with the patient's name, medical record number and "toe, right" is a disarticulated toe measuring 7.3 cm in length and 3 cm in diameter. There is a loosely attached, thickened, morales-yellow unguis. The lateral surface displays a 2 x 1.7 x 0.2 cm gangrenous ulcer located 0.7 cm from the skin margin and 4 cm from the disarticulated bone. There is an abundant amount of skin discoloration with slippage surrounding the ulcer. The underlying bone is red and hemorrhagic, and cuts easily with a scalpel blade. [employer] sections are submitted.Section code:A1: Ulcer to the closest skin margin (blue), perpendicular sections with underlying bone, following decalcificationA2: Disarticulated end of bone, en face, following decalcificationChelsea BRIANNA Medina, TERRIE (ASCP)cmPERFORMEDCARDIAC CATH REPORT - [id number] 10:37:11Ordered by an unspecified provider.[facility]-Glucose [id number] 11:15:00 Test Item Value Reference Range Interpretation Comments POC-Glucose Meter (test 283 mg/dL 70-110 H : TE STED AT [facility] code = 1538) [address] [facility], 770 30: Entry Engineer/Techni heather ID = [id number] for LEIJA, SERKAL EM Lab Interpretation (test Abnormal code = 73316-9) [facility]-GLUCOSE [id number] 11:15:00 Test Item Value Reference Range Interpretation Comments POC-GLUCOSE METER 283 mg/dL 70-110 H : TESTED A T [facility] 6720 (BEAKER) (test code = SHRAVAN Raymond [facility], 1538) [address]: Entry Engineer/Techni heather ID = [id number] for IB RAHIM, SERKALEM CBC with platelet count + automated [id number] 08:27:00 Test Item Value Reference Range Interpretation Comments WBC (test code = 6690-2) 15.3 See_Comment H [A utomated message] The system [employer] generated this result transmitted ref erence range: 3.5 - 10 .5 K/L. The refe rence range was not u sed to interpret this result as normal/abnor mal. RBC (test code = 789-8) 2.98 See_Comment L [Au tomated message] The system [employer] generated this result transmitted ref erence range: 4.63 - 6 .08 M/L. The refe rence range was not u sed to interpret this result as normal/abnor mal. MCHC (test code = 786-4) 31.1 See_Comment L [A utomated message] The system [employer] generated this result transmitted ref erence range: 32.3 - 3 6.5 GM/DL. The refe rence range was not u sed to interpret this result as normal/abnor mal. Hematocrit (test code = 29.9 % 40.1-51 L 4544-3) MCV (test code = 787-2) 100.3 fL 79-92.2 H MCH (test code = 785-6) 31.2 pg 25.7-32.2 RDW (test code = 788-0) 14.3 % 11.6-14.4 Platelets (test code = 154 See_Comment [Aut omated message] 777-3) The system [employer] generated this result transmitted ref erence range: 150 - 45 0 K/CU MM. The referen ce range was not u sed to interpret this result as normal/abnor mal. MPV (test code = 9.2 fL 9.4-12.4 L 28288-4) nRBC (test code = 413) 0 See_Comment [Aut omated message] The system [employer] generated this result transmitted ref erence range: 0 - 0 /1 00 WBC. The refere nce range was not u sed to interpret this result as normal/abnor mal. Lab Interpretation (test Abnormal code = 39616-4) [facility] [id number] 08:27:00 Test Item Value Reference Range Interpretation Comments % Neutros (test code = 73 % 2816) % Lymphs (test code = 11 % 2817) % Monos (test code = 10 % 2818) % Eos (test code = 2819) 4 % % Myelo (test code = 1 % 0-0 H 282) % Promyelo (test code = 1 % 0-0 H 2825) # Neutros (test code = 11.17 K/ul 1.78-5.38 H 2830) # Lymphs (test code = 1.68 K/ul 1.32-3.57 2831) # Monos (test code = 1.53 K/uL 0.3-0.82 H 2832) # Eos (test code = 2834) 0.61 K/uL 0.04-0.54 H # Myelo (test code = 0.15 K/uL 0-0 H 2837) # Promyelo (test code = 0.15 K/uL 0-0 H 2838) Total Counted (test code 100 = 1351) WBC Morphology (test Normal code = 487) Platelet Morphology Normal (test code = 486) Polychromasia (test code 1+ few = 478) Ovalocytes (test code = 1+ few 477) Artifact (test code = Present 3432) Platelet Conc (test code Adequate = 3438) CACHORRO (test code = CACHORRO) Entry Engineer ID - Irenamichelle MachucaYasminetarik comments: Slide comments: Lab Interpretation (test Abnormal code = 54439-3) [facility] W/PLT COUNT & AUTO [id number] 08:27:00 Test Item Value Reference Range Interpretation Comments WHITE BLOOD CELL COUNT (BEAKER) 15.3 K/ L 3.5-10.5 H (test code = 775) RED BLOOD CELL COUNT (BEAKER) 2.98 M/ L 4.63-6.08 L (test code = 761) HEMOGLOBIN (BEAKER) (test code = 9.3 GM/DL 13.7-17.5 L 410) HEMATOCRIT (BEAKER) (test code = 29.9 % 40.1-51.0 L 411) MEAN CORPUSCULAR VOLUME (BEAKER) 100.3 fL 79.0-92.2 H (test code = 753) MEAN CORPUSCULAR HEMOGLOBIN 31.2 pg 25.7-32.2 (BEAKER) (test code = 751) MEAN CORPUSCULAR HEMOGLOBIN CONC 31.1 GM/DL 32.3-36.5 L (BEAKER) (test code = 752) RED CELL DISTRIBUTION WIDTH 14.3 % 11.6-14.4 (BEAKER) (test code = 412) PLATELET COUNT (BEAKER) (test 154 K/CU MM 150-450 code = 756) MEAN PLATELET VOLUME (BEAKER) 9.2 fL 9.4-12.4 L (test code = 754) NUCLEATED RED BLOOD CELLS 0 /100 WBC 0-0 (BEAKER) (test code = 413) (CELLAVISION MANUAL DIFF)2020-07-05 08:27:00 Test Item Value Reference Range Interpretation Comments NEUTROPHILS - REL 73 % (CELLAVISION)(BEAKER) (test code = 2816) LYMPHOCYTES - REL 11 % (CELLAVISION)(BEAKER) (test code = 2817) MONOCYTES - REL 10 % (CELLAVISION)(BEAKER) (test code = 2818) EOSINOPHILS - REL 4 % (CELLAVISION)(BEAKER) (test code = 2819) MYELOCYTES - REL 1 % 0-0 H (CELLAVISION)(BEAKER) (test code = 2822) PROMYELOCYTES - REL 1 % 0-0 H (CELLAVSION)(BEAKER) (test code = 2825) NEUTROPHILS - ABS 11.17 K/ul 1.78-5.38 H (CELLAVISION)(BEAKER) (test code = 2830) LYMPHOCYTES - ABS 1.68 K/ul 1.32-3.57 (CELLAVISION)(BEAKER) (test code = 2831) MONOCYTES - ABS 1.53 K/uL 0.30-0.82 H (CELLAVISION)(BEAKER) (test code = 2832) EOSINOPHILS - ABS 0.61 K/uL 0.04-0.54 H (CELLAVISION)(BEAKER) (test code = 2834) MYELOCYTES-ABS 0.15 K/uL 0.00-0.00 H (CELLAVISION)(BEAKER) (test code = 2837) PROMYELOCYTES - ABS 0.15 K/uL 0.00-0.00 H (CELLAVISION)(BEAKER) (test code = 2838) TOTAL COUNTED (BEAKER) (test code 100 = 1351) WBC MORPHOLOGY (BEAKER) (test code Normal = 487) PLT MORPHOLOGY (BEAKER) (test code Normal = 486) POLYCHROMATOPHILLIC RBCS(BEAKER) 1+ few (test code = 478) OVALOCYTES (BEAKER) (test code = 1+ few 477) ARTIFACT (CELLAVISION)(BEAKER) Present (test code = 3432) PLATELET CONCENTRATION Adequate (CELLAVISION)(BEAKER) (test code = 3438) Entry Engineer ID - Irena Chen comments: Slide comments:POCT-GLUCOSE METER 2020-07-05 08:06:00 Test Item Value Reference Range Interpretation Comments POC-GLUCOSE METER 149 mg/dL 70-110 H : TESTED A T [facility] 6720 (BEAKER) (test code = SH[place]AN [place], 1538) [address]: Entry Engineer/Techni heather ID = [id number] for LIN CERVANTES Basic Metabolic [id number] 04:49:00 Test Item Value Reference Range Interpretation Comments Sodium (test code = 138 meq/L 425-327 3333-2) Potassium (test code = 4.0 meq/L 3.5-5.1 2823-3) Chloride (test code = 107 meq/L 98-107 2075-0) CO2 (test code = 21 meq/L 22-29 L 8-9) BUN (test code = 18 mg/dL 7-21 3094-0) Creatinine (test code 1.38 mg/dL 0.57-1.25 H = 2160-0) Glucose (test code = 161 mg/dL 70-105 H 2345-7) Calcium (test code = 8.8 mg/dL 8.4-10.2 13045-5) EGFR (test code = 50 mL/min/1.73 [place] [address]-4) NOT ACCURATE CREATININE CLEARANCE IN PREDICTING GLOMERULAR FILTRATION RATE . ESTIMATED GFR I S NOT APPLICABLE FOR DIALYSIS PATIENTS. CACHORRO (test code = CACHORRO) Entry Engineer ID - PIAYA L Lab Interpretation Abnormal (test code = 08181-7) [facility] [id number] 04:49:00 Test Item Value Reference Range Interpretation Comments SODIUM (BEAKER) 138 meq/L 136-145 (test code = 381) POTASSIUM (BEAKER) 4.0 meq/L 3.5-5.1 (test code = 379) CHLORIDE (BEAKER) 107 meq/L 98-107 (test code = 382) CO2 (BEAKER) (test 21 meq/L 22-29 L code = 355) BLOOD UREA NITROGEN 18 mg/dL 7-21 (BEAKER) (test code = 354) CREATININE (BEAKER) 1.38 mg/dL 0.57-1.25 H (test code = 358) GLUCOSE RANDOM 161 mg/dL 70-105 H (BEAKER) (test code = 652) CALCIUM (BEAKER) 8.8 mg/dL 8.4-10.2 (test code = 697) EGFR (BEAKER) (test 50 mL/min/1.73 ESTIMA VY GFR IS code = 1092) sq m NOT ACCURATE CREATININE CLEARANCE IN PREDICTING GLOMERULAR FILTRATION RATE . ESTIMATED GFR I S NOT APPLICABLE FOR DIALYSIS PATIEN TS. Entry Engineer ID - PIAYA LPOCT-GLUCOSE [id number] 21:36:00 Test Item Value Reference Range Interpretation Comments POC-GLUCOSE METER 167 mg/dL 70-110 H : TESTED A T [facility] 6720 (BEAKER) (test code = [facility], 1538) [address]: Entry Engineer/Techni heather ID = [id number] for Raghu lt (pca2), Clair POCT-GLUCOSE [id number] 17:51:00 Test Item Value Reference Range Interpretation Comments POC-GLUCOSE METER 156 mg/dL 70-110 H : Not[facility]: [facility] (test code = TESTED AT [facility] 67[address] 1538) AIMEE [facility], [address]: Entry Engineer/Techni heather ID = [id number] for Marj Watts (CELLAVISION MANUAL DIFF)2020-07-04 15:55:00 Test Item Value Reference Range Interpretation Comments NEUTROPHILS - REL 78 % (CELLAVISION)(BEAKER) (test code = 2816) LYMPHOCYTES - REL 8 % (CELLAVISION)(BEAKER) (test code = 2817) MONOCYTES - REL 9 % (CELLAVISION)(BEAKER) (test code = 2818) EOSINOPHILS - REL 2 % (CELLAVISION)(BEAKER) (test code = 2819) BASOPHILS - REL 1 % (CELLAVISION)(BEAKER) (test code = 2820) METAMYELOCYTES - REL 1 % 0-0 H (CELLAVISION)(BEAKER) (test code = 2821) MYELOCYTES - REL 1 % 0-0 H (CELLAVISION)(BEAKER) (test code = 2822) NEUTROPHILS - ABS 13.88 K/ul 1.78-5.38 H (CELLAVISION)(BEAKER) (test code = 2830) LYMPHOCYTES - ABS 1.42 K/ul 1.32-3.57 (CELLAVISION)(BEAKER) (test code = 2831) MONOCYTES - ABS 1.60 K/uL 0.30-0.82 H (CELLAVISION)(BEAKER) (test code = 2832) EOSINOPHILS - ABS 0.36 K/uL 0.04-0.54 (CELLAVISION)(BEAKER) (test code = 2834) BASOPHILS - ABS 0.18 K/uL 0.01-0.08 H (CELLAVISION)(BEAKER) (test code = 2835) METAMYELOCYTES - ABS 0.18 K/uL 0.00-0.00 H (CELLAVISION)(BEAKER) (test code = 2836) MYELOCYTES-ABS 0.18 K/uL 0.00-0.00 H (CELLAVISION)(BEAKER) (test code = 2837) TOTAL COUNTED (BEAKER) (test code 100 = 1351) GIANT PLATELETS (BEAKER) (test Present code = 313) TOXIC GRANULATION (BEAKER) (test Present code = 771) MACROCYTES (BEAKER) (test code = 1+ few 964) ARTIFACT (CELLAVISION)(BEAKER) Present (test code = 3432) PLATELET CONCENTRATION Adequate (CELLAVISION)(BEAKER) (test code = 3438) Entry Engineer ID - [place] Astudillo comments: Slide comments:BASIC METABOLIC PANEL 2020-07-04 15:38:00 Test Item Value Reference Range Interpretation Comments SODIUM (BEAKER) 136 meq/L 136-145 (test code = 381) POTASSIUM (BEAKER) 4.3 meq/L 3.5-5.1 (test code = 379) CHLORIDE (BEAKER) 105 meq/L 98-107 (test code = 382) CO2 (BEAKER) (test 24 meq/L 22-29 code = 355) BLOOD UREA NITROGEN 16 mg/dL 7-21 (BEAKER) (test code = 354) CREATININE (BEAKER) 1.42 mg/dL 0.57-1.25 H (test code = 358) GLUCOSE RANDOM 203 mg/dL 70-105 H (BEAKER) (test code = 652) CALCIUM (BEAKER) 8.7 mg/dL 8.4-10.2 (test code = 697) EGFR (BEAKER) (test 48 mL/min/1.73 ESTIMA VY GFR IS code = 1092) sq m NOT ACCURATE CREATININE CLEARANCE IN PREDICTING GLOMERULAR FILTRATION RATE . ESTIMATED GFR I S NOT APPLICABLE FOR DIALYSIS PATIEN TS. Entry Engineer ID - DBCBC W/PLT COUNT & AUTO [id number] 15:17:00 Test Item Value Reference Range Interpretation Comments WHITE BLOOD CELL COUNT (BEAKER) 17.8 K/ L 3.5-10.5 H (test code = 775) RED BLOOD CELL COUNT (BEAKER) 2.96 M/ L 4.63-6.08 L (test code = 761) HEMOGLOBIN (BEAKER) (test code = 9.4 GM/DL 13.7-17.5 L 410) HEMATOCRIT (BEAKER) (test code = 29.6 % 40.1-51.0 L 411) MEAN CORPUSCULAR VOLUME (BEAKER) 100.0 fL 79.0-92.2 H (test code = 753) MEAN CORPUSCULAR HEMOGLOBIN 31.8 pg 25.7-32.2 (BEAKER) (test code = 751) MEAN CORPUSCULAR HEMOGLOBIN CONC 31.8 GM/DL 32.3-36.5 L (BEAKER) (test code = 752) RED CELL DISTRIBUTION WIDTH 13.9 % 11.6-14.4 (BEAKER) (test code = 412) PLATELET COUNT (BEAKER) (test 161 K/CU MM 150-450 code = 756) MEAN PLATELET VOLUME (BEAKER) 9.1 fL 9.4-12.4 L (test code = 754) NUCLEATED RED BLOOD CELLS 0 /100 WBC 0-0 (BEAKER) (test code = 413) [id number] 12:36:00 Test Item Value Reference Range Interpretation Comments PTT (test code = 102.6 See_Comment H [Automated message] 24867-5) The system [employer] generated this result transmitted ref erence range: 22.5 - 3 6.0 seconds. The reference range was not used to int erpret this result as normal/abnormal . Lab Interpretation (test Abnormal code = 26179-2) [id number] Test Item Value Reference Range Interpretation Comments PARTIAL THROMBOPLASTIN TIME 102.6 seconds 22.5-36.0 H (BEAKER) (test code = 760) POCT-GLUCOSE [id number] 12:25:00 Test Item Value Reference Range Interpretation Comments POC-GLUCOSE METER 212 mg/dL 70-110 H : [facility] ([facility]) (test code = [facility], 1538) [address]: Entry Engineer/Techni heather ID = [id number] for Marj Watts POCT-GLUCOSE [id number] 07:39:00 Test Item Value Reference Range Interpretation Comments POC-GLUCOSE METER 162 mg/dL 70-110 H : TESTED A T [facility] [address] ([facility]) (test code = [facility], 1538) 71352: Entry Engineer/Techni heather ID = [id number] for EMANI DELGADO [id number] 05:06:00 Test Item Value Reference Range Interpretation Comments PARTIAL THROMBOPLASTIN TIME 64.8 seconds 22.5-36.0 H ([facility]) (test code = 760) [id number] 23:50:00 Test Item Value Reference Range Interpretation Comments PARTIAL THROMBOPLASTIN TIME 59.1 seconds 22.5-36.0 H ([facility]) (test code = 760) POCT-GLUCOSE [id number] 21:25:00 Test Item Value Reference Range Interpretation Comments POC-GLUCOSE METER 156 mg/dL 70-110 H : [facility] ([facility]) (test code = [facility], 153) [address]: Entry Engineer/Techni heather ID = [id number] for LEVON LEE POCT-GLUCOSE [id number] 17:25:00 Test Item Value Reference Range Interpretation Comments POC-GLUCOSE METER 162 mg/dL 70-110 H : Notified RN/MD: ([facility]) (test code = TESTED AT [facility] 6720 1538) [facility], [address]: Entry Engineer/Techni heather ID = [id number] for Marj Watts [id number] 15:41:00 Test Item Value Reference Range Interpretation Comments PARTIAL THROMBOPLASTIN TIME 46.0 seconds 22.5-36.0 H ([facility]) (test code = 760) [id number] 15:13:00 Test Item Value Reference Range Interpretation Comments PARTIAL THROMBOPLASTIN TIME > seconds 22.5-36.0 HH ([facility]) (test code = 760) POCT-GLUCOSE [id number] 12:24:00 Test Item Value Reference Range Interpretation Comments POC-GLUCOSE METER 166 mg/dL 70-110 H : TESTED A T [facility] 67[address] ([facility]) (test code = [place], 1538) [address]: Entry Engineer/Techni heather ID = [id number] for LEVON LEE SARS-CoV2/RT-PCR (Asymptomatic ONLY)2020-07-03 08:16:00 Test Item Value Reference Range Interpretation Comments SARS-COV2/RT-PCR Negative Not Detected, (test code = Negative, See 46642-8) external report for linked test SARS-COV-2 [facility] (test code = 16701-5) CACHORRO (test code = Negative results do not CACHORRO) preclude SARS-CoV-2 infection and should not be used as the sole basis for patient management decisions. Negative results must be combined with clinical observations, patient history, and epidemiological information. A false negative result may occur if a specimen is improperly collected, transported or handled. The limit of detection for this assay is 250 copies/mL. This SARS CoV-2 test is a rapid, real-time RT-PCR test intended for the qualitative detection of nucleic acid from SARS-CoV-2 in a nasopharyngeal swab specimen collected from individuals suspected of COVID-19 by their healthcare provider. This test has not been Food and Drug Administration (FDA) cleared or approved and has been authorized by FDA under an Emergency Use Authorization (EUA). This EUA will be effective until the declaration that circumstances exist justifying the authorization of the emergency use of in vitro diagnostic tests for detection and/or diagnosis of COVID-19 is terminated under Section 564(b)(2) of the Act or the EUA is revoked under Section 564(g) of the Act. Fact Sheet for Healthcare Providers:https://www.S[employer].BioHorizons/Documents/Xper t%20Xpress%20SARS%20CoV- 2/Fact%20Sheets/302-6062 %18NNXI-DPJ-4%20HEALTHCA RE%20PROVIDERS%20FACT%20 SHEET.pdf Fact Sheet for Healthcare Patients:https://www.PROSimity/Documents/Xpert %20Xpress%20SARS%20CoV-2 /Fact%20Sheets/3023801% 50IDCF-LGW-4%20PATIENT%2 0FACT%20SHEET.pdf Performing Laboratory:[facility] [place] [address] [facility])2020-07-03 08:16:00 Test Item Value Reference Range Interpretation Comments SARS-COV2/RT-PCR (test code Negative Not Detected, Negative, = 3728117) See external report for linked test SARS-COV-2 PERFORMING [facility] (test code = 7439737) Negative results do not preclude SARS-CoV-2 infection and should not be used as the sole basis for patient management decisions. Negative results must be combined with clinical observations, patient history, and epidemiological information. A false negative result may occur if a specimen is improperly collected, transported or handled.The limit of detection for this assay is 250 copies/mL.This SARS CoV-2 test is a rapid, real-time RT-PCR test intended for the qualitative detection of nucleic acid from SARS-CoV-2 in a nasopharyngeal swab specimen collected from individuals suspected of COVID-19 by their healthcare provider.This test has not been Food and Drug Administration (FDA) cleared or approved and has been authorized by FDA under an Emergency Use Authorization (EUA). This EUA will be effective until the declaration that circumstances exist justifying the authorization of the emergency use of in vitro diagnostic tests for detection and/or diagnosis of COVID-19 is terminated under Section 564(b)(2) of the Act or the EUA is revoked under Section 564(g) of the Act.Fact Sheet for Healthcare Pro viders:https://www.[employer].BioHorizons/Documents/Xpert%20Xpress%20SARS%20CoV-2/Fact%20Sh eets/3023802%20TATL-ULA-6%20HEALTHCARE%20PROVIDERS%20FACT%20SHEET.pdfFact Sheet for Healthcare Patients:https://www.App[employer]y.BioHorizons/Documents/Xpert%20Xpress%20SARS%20CoV-2/Fact%20Sheets/302-3801%20SARS-COV -2%20PATIENT%20FACT%20SHEET.pdfPerforming Laboratory:[facility], [place] [address]YQEH-PALDAMT [id number] 08:12:00 Test Item Value Reference Range Interpretation Comments POC-GLUCOSE METER 152 mg/dL 70-110 H : TESTED A T [facility] (BEAKER) (test code = [facility], 1538) [address]: Entry Engineer/Techni heather ID = [id number] for LEVON LEE BASIC METABOLIC [id number] 05:19:00 Test Item Value Reference Range Interpretation Comments SODIUM (BEAKER) 138 meq/L 136-145 (test code = 381) POTASSIUM (BEAKER) 4.4 meq/L 3.5-5.1 (test code = 379) CHLORIDE (BEAKER) 107 meq/L 98-107 (test code = 382) CO2 (BEAKER) (test 22 meq/L 22-29 code = 355) BLOOD UREA NITROGEN 17 mg/dL 7-21 (BEAKER) (test code = 354) CREATININE (BEAKER) 1.29 mg/dL 0.57-1.25 H (test code = 358) GLUCOSE RANDOM 165 mg/dL 70-105 H (BEAKER) (test code = 652) CALCIUM (BEAKER) 8.7 mg/dL 8.4-10.2 (test code = 697) EGFR (BEAKER) (test 54 mL/min/1.73 ESTIMA VY GFR IS code = 1092) sq m NOT ACCURATE CREATININE CLEARANCE IN PREDICTING GLOMERULAR FILTRATION RATE . ESTIMATED GFR I S NOT APPLICABLE FOR DIALYSIS PATIEN TS. Entry Engineer ID - TUSHAR [id number] 04:52:00 Test Item Value Reference Range Interpretation Comments PARTIAL THROMBOPLASTIN TIME 37.1 seconds 22.5-36.0 H (BEAKER) (test code = 760) CBC (Hemogram only)2020-07-03 04:41:00 Test Item Value Reference Range Interpretation Comments WBC (test code = 6690-2) 14.4 See_Comment H [A utomated message] The system ZenSuite generated this result transmitted ref erence range: 3.5 - 10 .5 K/L. The refe rence range was not u sed to interpret this result as normal/abnor mal. RBC (test code = 789-8) 2.85 See_Comment L [Au tomated message] The system [employer]Suite generated this result transmitted ref erence range: 4.63 - 6 .08 M/L. The refe rence range was not u sed to interpret this result as normal/abnor mal. MCHC (test code = 786-4) 31.6 See_Comment L [A utomated message] The system ZenSuite generated this result transmitted ref erence range: 32.3 - 3 6.5 GM/DL. The refe rence range was not u sed to interpret this result as normal/abnor mal. Hematocrit (test code = 28.8 % 40.1-51 L 4544-3) MCV (test code = 787-2) 101.1 fL 79-92.2 H MCH (test code = 785-6) 31.9 pg 25.7-32.2 RDW (test code = 788-0) 13.6 % 11.6-14.4 Platelets (test code = 159 See_Comment [Aut omated message] 777-3) The system [employer]Suite generated this result transmitted ref erence range: 150 - 45 0 K/CU MM. The referen ce range was not u sed to interpret this result as normal/abnor mal. MPV (test code = 9.0 fL 9.4-12.4 L 27571-6) nRBC (test code = 413) 0 See_Comment [Aut omated message] The system [employer]Suite generated this result transmitted ref erence range: 0 - 0 /1 00 WBC. The refere nce range was not u sed to interpret this result as normal/abnor mal. Lab Interpretation (test Abnormal code = 01779-3) [facility] (HEMOGRAM ONLY)2020-07-03 04:41:00 Test Item Value Reference Range Interpretation Comments WHITE BLOOD CELL COUNT (BEAKER) 14.4 K/ L 3.5-10.5 H (test code = 775) RED BLOOD CELL COUNT (BEAKER) 2.85 M/ L 4.63-6.08 L (test code = 761) HEMOGLOBIN (BEAKER) (test code = 9.1 GM/DL 13.7-17.5 L 410) HEMATOCRIT (BEAKER) (test code = 28.8 % 40.1-51.0 L 411) MEAN CORPUSCULAR VOLUME (BEAKER) 101.1 fL 79.0-92.2 H (test code = 753) MEAN CORPUSCULAR HEMOGLOBIN 31.9 pg 25.7-32.2 (BEAKER) (test code = 751) MEAN CORPUSCULAR HEMOGLOBIN CONC 31.6 GM/DL 32.3-36.5 L (BEAKER) (test code = 752) RED CELL DISTRIBUTION WIDTH 13.6 % 11.6-14.4 (BEAKER) (test code = 412) PLATELET COUNT (BEAKER) (test 159 K/CU MM 150-450 code = 756) MEAN PLATELET VOLUME (BEAKER) 9.0 fL 9.4-12.4 L (test code = 754) NUCLEATED RED BLOOD CELLS 0 /100 WBC 0-0 (BEAKER) (test code = 413) SARS-COV2/RT-PCR ([facility])2020-07-02 20:04:00 Test Item Value Reference Range Interpretation Comments SARS-COV2/RT-PCR (test Negative Not Detected, Negative, code = 7018200) See external report for linked test SARS-COV-2 PERFORMING LAB [facility] (test code = 9403151) Negative result for this test determines that SARS-CoV-2 RNA was not present in the specimen above the Limit of Detection (LOD). However, Negative results do not preclude SARS-CoV-2 infection and should not be used as the sole basis for treatment or patient management decisions. Negative results mustbe combined with clinical observations, patient history, and epidemiological information. A false negative result may occur if a specimen is improperly collected, transported or handled. A false negative result should be considered if patient's recent exposures or clinical presentation indicate that COVID-19 (SARS-CoV-2) is likely and diagnostic tests for other causes of illness are negative. Re-testing should be considered in cases of suspected false negatives.The limit of detection for this assay is 100 copies/mL.This SARS CoV-2 test is a real-time RT-PCR test intended for the qualitative detection of nucleic acid from SARS-CoV-2 in a nasopharyngeal swab specimen collected from individuals susp ected of COVID-19 by their healthcare provider.This test has not been Food and Drug Administration (FDA) cleared or approved. This is a modified version of an approved Emergency Use Authorization (EUA) and is in the process of review by the FDA. Once authorized by the FDA, the issued EUA will be effective until the declaration that circumstances exist justifying the authorization of the emergency use of in vitro diagnostic tests for detection and/or diagnosis of COVID-19 is terminated under Section 564(b)(2) of the Act or the EUA is revoked under Section 564(g) of the Act.Testing was performed using the Pacheco SARS-CoV-2 assay.Fact Sheet for Healthcare Providers:https://www.Mommy Nearest.pacheco/libby/ II_JHVI-OlH-5_OLL_Rajw_Jrbyp_52-902235.pdfFact Sheet for Healthcare Patients:https://www.Mom[employer] Nearest.[employer] dario/libby/IV_FKYC-AvO-5_Xebngjb_Tzzb_Bqxzx_GG_54-421483Z6.pdfPerforming Laboratory:[address] [place] [address] POCT-GLUCOSE [id number] 17:56:00 Test Item Value Reference Range Interpretation Comments POC-GLUCOSE METER 155 mg/dL 70-110 H : TESTED A T [facility] 6720 (BEAKER) (test code = [facility], 1538) [address]: Entry Engineer/Techni heather ID = [id number] for Jazmin Hu POCT-GLUCOSE [id number] 17:55:00 Test Item Value Reference Range Interpretation Comments POC-GLUCOSE METER 166 mg/dL 70-110 H : TESTED A T [facility] 6720 (BEAKER) (test code = [facility], 1538) [address]: Entry Engineer/Techni heather ID = [id number] for Jazmin Hu CBC (HEMOGRAM ONLY)2020-07-02 17:45:00 Test Item Value Reference Range Interpretation Comments WHITE BLOOD CELL COUNT (BEAKER) 14.8 K/ L 3.5-10.5 H (test code = 775) RED BLOOD CELL COUNT (BEAKER) 2.90 M/ L 4.63-6.08 L (test code = 761) HEMOGLOBIN (BEAKER) (test code = 9.0 GM/DL 13.7-17.5 L 410) HEMATOCRIT (BEAKER) (test code = 29.1 % 40.1-51.0 L 411) MEAN CORPUSCULAR VOLUME (BEAKER) 100.3 fL 79.0-92.2 H (test code = 753) MEAN CORPUSCULAR HEMOGLOBIN 31.0 pg 25.7-32.2 (BEAKER) (test code = 751) MEAN CORPUSCULAR HEMOGLOBIN CONC 30.9 GM/DL 32.3-36.5 L (BEAKER) (test code = 752) RED CELL DISTRIBUTION WIDTH 13.6 % 11.6-14.4 (BEAKER) (test code = 412) PLATELET COUNT (BEAKER) (test 145 K/CU MM 150-450 L code = 756) MEAN PLATELET VOLUME (BEAKER) 9.3 fL 9.4-12.4 L (test code = 754) NUCLEATED RED BLOOD CELLS 0 /100 WBC 0-0 (BEAKER) (test code = 413) Vancomycin level, [id number] 16:47:00 Test Item Value Reference Range Interpretation Comments Vancomycin Rm (test 9.9 ug/mL code = 21843-1) CACHORRO (test code = Reference Range: No CACHORRO) NormalsOperator ID - BS [facility] CenterVANCOMYCIN LEVEL, [id number] 16:47:00 Test Item Value Reference Range Interpretation Comments VANCOMYCIN RANDOM (BEAKER) (test 9.9 ug/mL code = 523) Reference Range: No NormalsOperator ID - BSPOCT-GLUCOSE [id number] 14:40:00 Test Item Value Reference Range Interpretation Comments POC-GLUCOSE METER 167 mg/dL 70-110 H : [facility] (BEAKER) (test code = [place], 1538) [address]: Entry Engineer/Techni heather ID = [id number] for ANGIE WHEELER RK ECG 12 [id number] 13:53:08Interface, External Ris In - 07/02/2020 1:53 PM CDTVentricular Rate 70 BPMAtrial Rate 76 BPMQRS Duration 114 msQ-T Interval 416 msQTC Calculation(Bazett) 449 msR [place] 2 degreesT [place] -[address] and T wave abnormalityAbnormal ECGWhen compared with ECG of 30-JAN-2017 01:13,ST less depressed in Anterior leadsT wave inversion no longer evident in Anterolateral leadsConfirmed by MD Morocho Roberto ([id number]) on 07/02/2020 1:53:05 [facility] W/PLT COUNT & AUTO [id number] 09:24:00 Test Item Value Reference Range Interpretation Comments WHITE BLOOD CELL COUNT (BEAKER) 17.1 K/ L 3.5-10.5 H (test code = 775) RED BLOOD CELL COUNT (BEAKER) 2.91 M/ L 4.63-6.08 L (test code = 761) HEMOGLOBIN (BEAKER) (test code = 9.2 GM/DL 13.7-17.5 L 410) HEMATOCRIT (BEAKER) (test code = 28.8 % 40.1-51.0 L 411) MEAN CORPUSCULAR VOLUME (BEAKER) 99.0 fL 79.0-92.2 H (test code = 753) MEAN CORPUSCULAR HEMOGLOBIN 31.6 pg 25.7-32.2 (BEAKER) (test code = 751) MEAN CORPUSCULAR HEMOGLOBIN CONC 31.9 GM/DL 32.3-36.5 L (BEAKER) (test code = 752) RED CELL DISTRIBUTION WIDTH 13.6 % 11.6-14.4 (BEAKER) (test code = 412) PLATELET COUNT (BEAKER) (test 141 K/CU MM 150-450 L code = 756) MEAN PLATELET VOLUME (BEAKER) 8.7 fL 9.4-12.4 L (test code = 754) NUCLEATED RED BLOOD CELLS 0 /100 WBC 0-0 (BEAKER) (test code = 413) (CELLAVISION MANUAL DIFF)2020-07-02 09:24:00 Test Item Value Reference Range Interpretation Comments NEUTROPHILS - REL 66 % (CELLAVISION)(BEAKER) (test code = 2816) LYMPHOCYTES - REL 15 % (CELLAVISION)(BEAKER) (test code = 2817) MONOCYTES - REL 15 % (CELLAVISION)(BEAKER) (test code = 2818) EOSINOPHILS - REL 3 % (CELLAVISION)(BEAKER) (test code = 2819) ATYPICAL LYMPHOCYTES - REL 1 % 0-0 H (CELLAVISION)(BEAKER) (test code = 2829) NEUTROPHILS - ABS 11.29 K/ul 1.78-5.38 H (CE[facility]ISION)(BEAKER) (test code = 2830) LYMPHOCYTES - ABS 2.57 K/ul 1.32-3.57 (CELLAVISION)(BEAKER) (test code = 2831) MONOCYTES - ABS 2.57 K/uL 0.30-0.82 H ([facility]ISION)(BEAKER) (test code = 2832) EOSINOPHILS - ABS 0.51 K/uL 0.04-0.54 (CELLAVISION)(BEAKER) (test code = 2834) ATYPICAL LYMPHOCYTES - ABS 0.17 K/uL 0.00-0.00 H ([facility]ISION)(BEAKER) (test code = 2858) TOTAL COUNTED (BEAKER) (test code 100 = 1351) WBC MORPHOLOGY (BEAKER) (test code Normal = 487) GIANT PLATELETS (BEAKER) (test Present code = 313) LARGE PLT(BEAKER) (test code = Present 2156) HYPOCHROMIA (BEAKER) (test code = 1+ few 963) ANISOCYTOSIS (BEAKER) (test code = 1+ few 961) POIKILOCYTES (BEAKER) (test code = 1+ few 966) SPHEROCYTES (BEAKER) (test code = 1+ few 768) LENORE CELLS (BEAKER) (test code = 1+ few 474) ARTIFACT (CELLAVISION)(BEAKER) Present (test code = 3432) PLATELET CONCENTRATION Adequate (CELLAVISION)(BEAKER) (test code = 3438) Entry Engineer ID - Niurka Mahajan comments: Slide comments:POCT-GLUCOSE METER 2020-07-02 08:29:00 Test Item Value Reference Range Interpretation Comments POC-GLUCOSE METER 162 mg/dL 70-110 H : [facility] (BEAKER) (test code = [place], 1538) [address]: Entry Engineer/Techni heather ID = [id number] for Jazmin Hu [id number] 05:08:00 Test Item Value Reference Range Interpretation Comments PARTIAL THROMBOPLASTIN TIME 65.4 seconds 22.5-36.0 H (BEAKER) (test code = 760) [id number] 03:17:00 Test Item Value Reference Range Interpretation Comments PARTIAL THROMBOPLASTIN TIME 128.2 seconds 22.5-36.0 H (BEAKER) (test code = 760) BASIC METABOLIC [id number] 03:15:00 Test Item Value Reference Range Interpretation Comments SODIUM (BEAKER) 138 meq/L 136-145 (test code = 381) POTASSIUM (BEAKER) 4.6 meq/L 3.5-5.1 (test code = 379) CHLORIDE (BEAKER) 108 meq/L 98-107 H (test code = 382) CO2 (BEAKER) (test 21 meq/L 22-29 L code = 355) BLOOD UREA NITROGEN 21 mg/dL 7-21 (BEAKER) (test code = 354) CREATININE (BEAKER) 1.38 mg/dL 0.57-1.25 H (test code = 358) GLUCOSE RANDOM 184 mg/dL 70-105 H (BEAKER) (test code = 652) CALCIUM (BEAKER) 8.7 mg/dL 8.4-10.2 (test code = 697) EGFR (BEAKER) (test 50 mL/min/1.73 ESTIMA VY GFR IS code = 1092) sq m NOT ACCURATE CREATININE CLEARANCE IN PREDICTING GLOMERULAR FILTRATION RATE . ESTIMATED GFR I S NOT APPLICABLE FOR DIALYSIS PATIEN TS. Entry Engineer ID - SARBJIT MPOCT-GLUCOSE [id number] 00:03:00 Test Item Value Reference Range Interpretation Comments POC-GLUCOSE METER 183 mg/dL 70-110 H : TESTED A T [facility] (BEAKER) (test code = [place], 1538) [address]: Entry Engineer/Techni heather ID = [id number] for Jazmine Herb Manzanares [id number] 18:14:00 Test Item Value Reference Range Interpretation Comments PARTIAL THROMBOPLASTIN TIME 71.0 seconds 22.5-36.0 H (BEAKER) (test code = 760) POCT-GLUCOSE [id number] 17:03:00 Test Item Value Reference Range Interpretation Comments POC-GLUCOSE METER 259 mg/dL 70-110 H : TESTED A T [facility] 6720 (BEAKER) (test code = [facility] [facility], 1538) [address]: Entry Engineer/Techni heather ID = [id number] for AN MALIHA CARBALLO [id number] 15:30:00 Test Item Value Reference Range Interpretation Comments PARTIAL THROMBOPLASTIN TIME > seconds 22.5-36.0 HH (BEAKER) (test code = 760) Blood Culture - Routine (Left Venipuncture)2020-07-01 14:01:00 Test Item Value Reference Range Interpretation Comments Result (test code = No growth in 5 days 6463-4) [facility] [id number] 14:01:00 Test Item Value Reference Range Interpretation Comments CULTURE (BEAKER) (test No growth in 5 days code = 1095) BLOOD [id number] 14:01:00 Test Item Value Reference Range Interpretation Comments CULTURE (BEAKER) (test No growth in 5 days code = 1095) BLOOD [id number] 14:01:00 Test Item Value Reference Range Interpretation Comments CULTURE (BEAKER) (test No growth in 5 days code = 1095) POCT-GLUCOSE [id number] 12:17:00 Test Item Value Reference Range Interpretation Comments POC-GLUCOSE METER 225 mg/dL 70-110 H : TESTED A T [facility] 6720 (BEAKER) (test code = [facility] [facility], 1538) [address]: Entry Engineer/Techni heather ID = [id number] for AN MALIHA CARBALLO Hepatic function [id number] 10:07:00 Test Item Value Reference Range Interpretation Comments Protein, Total (test 7.0 See_Comment [Autom ated code = 2885-2) message] The system which generated this result transmit vy reference range : 6.0 - 8.3 gm/dL . The reference range was not u sed to interpret th is result as normal/abnormal . Albumin (test code = 3.2 g/dL 3.5-5 L 64120-2) Total Bilirubin (test 0.5 mg/dL 0.2-1.2 code = 1974-2) Bilirubin, Direct 0.3 mg/dL 0.1-0.5 (test code = 1967-7) Alkaline Phosphatase 110 U/L 40-150 (test code = 6768-6) AST (test code = 15 U/L 5-34 1920-8) ALT (test code = 10 U/L 6-55 1742-6) CACHORRO (test code = CACHORRO) Entry Engineer ID Ventura JARAMILLO F Lab Interpretation Abnormal (test code = 92705-2) [facility]AT[facility] FUNCTION [id number] 10:07:00 Test Item Value Reference Range Interpretation Comments TOTAL PROTEIN (BEAKER) (test code = 7.0 gm/dL 6.0-8.3 770) ALBUMIN (BEAKER) (test code = 1145) 3.2 g/dL 3.5-5.0 L BILIRUBIN TOTAL (BEAKER) (test code 0.5 mg/dL 0.2-1.2 = 377) BILIRUBIN DIRECT (BEAKER) (test 0.3 mg/dL 0.1-0.5 code = 706) ALKALINE PHOSPHATASE (BEAKER) (test 110 U/L 40-150 code = 346) AST (SGOT) (BEAKER) (test code = 15 U/L 5-34 353) ALT (SGPT) (BEAKER) (test code = 10 U/L 6-55 347) Entry Engineer ID Ventura JARAMILLO FCBC W/PLT COUNT & AUTO [id number] 09:53:00 Test Item Value Reference Range Interpretation Comments WHITE BLOOD CELL COUNT (BEAKER) 15.3 K/ L 3.5-10.5 H (test code = 775) RED BLOOD CELL COUNT (BEAKER) 2.86 M/ L 4.63-6.08 L (test code = 761) HEMOGLOBIN (BEAKER) (test code = 9.0 GM/DL 13.7-17.5 L 410) HEMATOCRIT (BEAKER) (test code = 28.2 % 40.1-51.0 L 411) MEAN CORPUSCULAR VOLUME (BEAKER) 98.6 fL 79.0-92.2 H (test code = 753) MEAN CORPUSCULAR HEMOGLOBIN 31.5 pg 25.7-32.2 (BEAKER) (test code = 751) MEAN CORPUSCULAR HEMOGLOBIN CONC 31.9 GM/DL 32.3-36.5 L (BEAKER) (test code = 752) RED CELL DISTRIBUTION WIDTH 13.7 % 11.6-14.4 (BEAKER) (test code = 412) PLATELET COUNT (BEAKER) (test 151 K/CU MM 150-450 code = 756) MEAN PLATELET VOLUME (BEAKER) 9.2 fL 9.4-12.4 L (test code = 754) NUCLEATED RED BLOOD CELLS 0 /100 WBC 0-0 (BEAKER) (test code = 413) (CELLAVISION MANUAL DIFF)2020-07-01 09:53:00 Test Item Value Reference Range Interpretation Comments NEUTROPHILS - REL 77 % (CELLAVISION)(BEAKER) (test code = 2816) LYMPHOCYTES - REL 6 % (CELLAVISION)(BEAKER) (test code = 2817) MONOCYTES - REL 13 % (CELLAVISION)(BEAKER) (test code = 2818) EOSINOPHILS - REL 3 % (CELLAVISION)(BEAKER) (test code = 2819) BASOPHILS - REL 1 % (CELLAVISION)(BEAKER) (test code = 2820) NEUTROPHILS - ABS 11.78 K/ul 1.78-5.38 H (CELLAVISION)(BEAKER) (test code = 2830) LYMPHOCYTES - ABS 0.92 K/ul 1.32-3.57 L (CELLAVISION)(BEAKER) (test code = 2831) MONOCYTES - ABS 1.99 K/uL 0.30-0.82 H (CELLAVISION)(BEAKER) (test code = 2832) EOSINOPHILS - ABS 0.46 K/uL 0.04-0.54 (CELLAVISION)(BEAKER) (test code = 2834) BASOPHILS - ABS 0.15 K/uL 0.01-0.08 H (CELLAVISION)(BEAKER) (test code = 2835) TOTAL COUNTED (BEAKER) (test code 100 = 1351) WBC MORPHOLOGY (BEAKER) (test code Normal = 487) PLT MORPHOLOGY (BEAKER) (test code Normal = 486) POIKILOCYTES (BEAKER) (test code = 1+ few 966) OVALOCYTES (BEAKER) (test code = 1+ few 477) PLATELET CONCENTRATION Adequate (CELLAVISION)(BEAKER) (test code = 3438) POCT-GLUCOSE [id number] 07:36:00 Test Item Value Reference Range Interpretation Comments POC-GLUCOSE METER 167 mg/dL 70-110 H : Notified RN/MD: ([facility]) (test code = TESTED AT [facility] [id number] 1538) [facility], [id number]: Entry Engineer/Techni heather ID = [id number] for MALIHA HANNAH BASIC METABOLIC [id number] 06:45:00 Test Item Value Reference Range Interpretation Comments SODIUM (BEAKER) 137 meq/L 136-145 (test code = 381) POTASSIUM (BEAKER) 4.4 meq/L 3.5-5.1 (test code = 379) CHLORIDE (BEAKER) 109 meq/L 98-107 H (test code = 382) CO2 (BEAKER) (test 20 meq/L 22-29 L code = 355) BLOOD UREA NITROGEN 21 mg/dL 7-21 (BEAKER) (test code = 354) CREATININE (BEAKER) 1.45 mg/dL 0.57-1.25 H (test code = 358) GLUCOSE RANDOM 161 mg/dL 70-105 H (BEAKER) (test code = 652) CALCIUM (BEAKER) 9.0 mg/dL 8.4-10.2 (test code = 697) EGFR (BEAKER) (test 47 mL/min/1.73 ESTIMA VY GFR IS code = 1092) sq m NOT ACCURATE CREATININE CLEARANCE IN PREDICTING GLOMERULAR FILTRATION RATE . ESTIMATED GFR I S NOT APPLICABLE FOR DIALYSIS PATIEN TS. Entry Engineer ID - NIURKA FVANCOMYCIN LEVEL, [id number] 06:33:00 Test Item Value Reference Range Interpretation Comments VANCOMYCIN RANDOM (BEAKER) (test 18.8 ug/mL code = 523) Reference Range: No NormalsOperator ID - SARBJIT [id number] 06:18:00 Test Item Value Reference Range Interpretation Comments PARTIAL THROMBOPLASTIN TIME 39.9 seconds 22.5-36.0 H (BEAKER) (test code = 760) POCT-GLUCOSE [id number] 00:26:00 Test Item Value Reference Range Interpretation Comments POC-GLUCOSE METER 170 mg/dL 70-110 H : TESTED A T [facility] (test code = SHRAVAN Mandi [facility], 1538) [address]: Entry Engineer/Techni heather ID = [id number] for DYLAN OLSON [id number] 23:56:00 Test Item Value Reference Range Interpretation Comments PARTIAL THROMBOPLASTIN TIME 47.5 seconds 22.5-36.0 H (BEAKER) (test code = 760) [id number] 16:30:00 Test Item Value Reference Range Interpretation Comments PARTIAL THROMBOPLASTIN TIME 51.2 seconds 22.5-36.0 H (BEAKER) (test code = 760) [id number] 14:32:00 Test Item Value Reference Range Interpretation Comments PARTIAL THROMBOPLASTIN TIME 187.8 seconds 22.5-36.0 HH (BEAKER) (test code = 760) [id number] 13:55:00 Test Item Value Reference Range Interpretation Comments PARTIAL THROMBOPLASTIN TIME > seconds 22.5-36.0 HH (BEAKER) (test code = 760) POCT-GLUCOSE [id number] 12:13:00 Test Item Value Reference Range Interpretation Comments POC-GLUCOSE METER 207 mg/dL 70-110 H : TESTED A T [facility] (BEAKER) (test code = [place]AN [place], 1538) [address]: Entry Engineer/Techni heather ID = [id number] for LADARIUS HOWELL CBC W/PLT COUNT & AUTO [id number] 09:36:00 Test Item Value Reference Range Interpretation Comments WHITE BLOOD CELL COUNT (BEAKER) 14.7 K/ L 3.5-10.5 H (test code = 775) RED BLOOD CELL COUNT (BEAKER) 2.75 M/ L 4.63-6.08 L (test code = 761) HEMOGLOBIN (BEAKER) (test code = 8.6 GM/DL 13.7-17.5 L 410) HEMATOCRIT (BEAKER) (test code = 27.9 % 40.1-51.0 L 411) MEAN CORPUSCULAR VOLUME (BEAKER) 101.5 fL 79.0-92.2 H (test code = 753) MEAN CORPUSCULAR HEMOGLOBIN 31.3 pg 25.7-32.2 (BEAKER) (test code = 751) MEAN CORPUSCULAR HEMOGLOBIN CONC 30.8 GM/DL 32.3-36.5 L (BEAKER) (test code = 752) RED CELL DISTRIBUTION WIDTH 13.5 % 11.6-14.4 (BEAKER) (test code = 412) PLATELET COUNT (BEAKER) (test 143 K/CU MM 150-450 L code = 756) MEAN PLATELET VOLUME (BEAKER) 9.1 fL 9.4-12.4 L (test code = 754) NUCLEATED RED BLOOD CELLS 0 /100 WBC 0-0 (BEAKER) (test code = 413) (CELLAVISION MANUAL DIFF)2020-06-30 09:36:00 Test Item Value Reference Range Interpretation Comments NEUTROPHILS - REL 68 % (CELLAVISION)(BEAKER) (test code = 2816) LYMPHOCYTES - REL 10 % (CELLAVISION)(BEAKER) (test code = 2817) MONOCYTES - REL 14 % (CELLAVISION)(BEAKER) (test code = 2818) EOSINOPHILS - REL 4 % (CELLAVISION)(BEAKER) (test code = 2819) BASOPHILS - REL 1 % (CELLAVISION)(BEAKER) (test code = 2820) METAMYELOCYTES - REL 1 % 0-0 H (CELLAVISION)(BEAKER) (test code = 2821) MYELOCYTES - REL 1 % 0-0 H (CELLAVISION)(BEAKER) (test code = 2822) ATYPICAL LYMPHOCYTES - REL 1 % 0-0 H (CELLAVISION)(BEAKER) (test code = 2829) NEUTROPHILS - ABS 10.00 K/ul 1.78-5.38 H (CELLAVISION)(BEAKER) (test code = 2830) LYMPHOCYTES - ABS 1.47 K/ul 1.32-3.57 (CELLAVISION)(BEAKER) (test code = 2831) MONOCYTES - ABS 2.06 K/uL 0.30-0.82 H (CELLAVISION)(BEAKER) (test code = 2832) EOSINOPHILS - ABS 0.59 K/uL 0.04-0.54 H (CELLAVISION)(BEAKER) (test code = 2834) BASOPHILS - ABS 0.15 K/uL 0.01-0.08 H (CELLAVISION)(BEAKER) (test code = 2835) METAMYELOCYTES - ABS 0.15 K/uL 0.00-0.00 H (CELLAVISION)(BEAKER) (test code = 2836) MYELOCYTES-ABS 0.15 K/uL 0.00-0.00 H (CELLAVISION)(BEAKER) (test code = 2837) ATYPICAL LYMPHOCYTES - ABS 0.15 K/uL 0.00-0.00 H (CELLAVISION)(BEAKER) (test code = 2858) TOTAL COUNTED (BEAKER) (test code 100 = 1351) PLT MORPHOLOGY (BEAKER) (test Normal code = 486) SMUDGE CELLS (BEAKER) (test code Present = 1371) MICROCYTES (BEAKER) (test code = 1+ few 965) POIKILOCYTES (BEAKER) (test code 1+ few = 966) LENORE CELLS (BEAKER) (test code = 2+ moderate 474) PLATELET CONCENTRATION Decreased (CELLAVISION)(BEAKER) (test code = 3438) Entry Engineer ID - Magi Esposito comments: Slide comments:POCT-GLUCOSE METER 2020-06-30 08:19:00 Test Item Value Reference Range Interpretation Comments POC-GLUCOSE METER 162 mg/dL 70-110 H : TESTED A T [facility] (BEAKER) (test code = [place], 1538) [address]: Entry Engineer/Techni heather ID = [id number] for EMANI DELGADO [id number] 07:46:00 Test Item Value Reference Range Interpretation Comments PARTIAL THROMBOPLASTIN TIME 76.8 seconds 22.5-36.0 H (BEAKER) (test code = 760) BASIC METABOLIC [id number] 07:03:00 Test Item Value Reference Range Interpretation Comments SODIUM (BEAKER) 134 meq/L 136-145 L (test code = 381) POTASSIUM (BEAKER) 4.5 meq/L 3.5-5.1 (test code = 379) CHLORIDE (BEAKER) 107 meq/L 98-107 (test code = 382) CO2 (BEAKER) (test 17 meq/L 22-29 L code = 355) BLOOD UREA NITROGEN 25 mg/dL 7-21 H (BEAKER) (test code = 354) CREATININE (BEAKER) 1.62 mg/dL 0.57-1.25 H (test code = 358) GLUCOSE RANDOM 171 mg/dL 70-105 H (BEAKER) (test code = 652) CALCIUM (BEAKER) 8.5 mg/dL 8.4-10.2 (test code = 697) EGFR (BEAKER) (test 42 mL/min/1.73 ESTIMA VY GFR IS code = 1092) sq m NOT ACCURATE CREATININE CLEARANCE IN PREDICTING GLOMERULAR FILTRATION RATE . ESTIMATED GFR I S NOT APPLICABLE FOR DIALYSIS PATIEN TS. Entry Engineer ID - SARBJIT MVANCOMYCIN LEVEL, [id number] 06:09:00 Test Item Value Reference Range Interpretation Comments VANCOMYCIN RANDOM (BEAKER) (test 25.1 ug/mL code = 523) Reference Range: No NormalsOperator ID - SARBJIT [id number] 00:42:00 Test Item Value Reference Range Interpretation Comments PARTIAL THROMBOPLASTIN TIME 68.8 seconds 22.5-36.0 H (BEAKER) (test code = 760) [id number] 22:14:00 Test Item Value Reference Range Interpretation Comments PARTIAL THROMBOPLASTIN TIME 124.8 seconds 22.5-36.0 H (BEAKER) (test code = 760) POCT-GLUCOSE [id number] 21:06:00 Test Item Value Reference Range Interpretation Comments POC-GLUCOSE METER 183 mg/dL 70-110 H : TESTED A T [facility] ([facility]) (test code = [facility], 1538) [address]: Entry Engineer/Techni heather ID = [id number] for Loredo Penelope chang POCT-GLUCOSE [id number] 17:21:00 Test Item Value Reference Range Interpretation Comments POC-GLUCOSE METER 190 mg/dL 70-110 H : TESTED A T [facility] [address] ([facility]) (test code = [facility] [employer] [facility], 1538) [address]: Entry Engineer/Techni heather ID = [id number] for [place] STROEMANI [id number] 14:11:00 Test Item Value Reference Range Interpretation Comments PARTIAL THROMBOPLASTIN TIME 56.4 seconds 22.5-36.0 H (BEAKER) (test code = 760) CBC (HEMOGRAM ONLY)2020-06-29 14:02:00 Test Item Value Reference Range Interpretation Comments WHITE BLOOD CELL COUNT (BEAKER) 14.8 K/ L 3.5-10.5 H (test code = 775) RED BLOOD CELL COUNT (BEAKER) 2.72 M/ L 4.63-6.08 L (test code = 761) HEMOGLOBIN (BEAKER) (test code = 8.6 GM/DL 13.7-17.5 L 410) HEMATOCRIT (BEAKER) (test code = 27.4 % 40.1-51.0 L 411) MEAN CORPUSCULAR VOLUME (BEAKER) 100.7 fL 79.0-92.2 H (test code = 753) MEAN CORPUSCULAR HEMOGLOBIN 31.6 pg 25.7-32.2 (BEAKER) (test code = 751) MEAN CORPUSCULAR HEMOGLOBIN CONC 31.4 GM/DL 32.3-36.5 L (BEAKER) (test code = 752) RED CELL DISTRIBUTION WIDTH 13.4 % 11.6-14.4 (BEAKER) (test code = 412) PLATELET COUNT (BEAKER) (test 144 K/CU MM 150-450 L code = 756) MEAN PLATELET VOLUME (BEAKER) 8.7 fL 9.4-12.4 L (test code = 754) NUCLEATED RED BLOOD CELLS 0 /100 WBC 0-0 (BEAKER) (test code = 413) POCT-GLUCOSE [id number] 12:21:00 Test Item Value Reference Range Interpretation Comments POC-GLUCOSE METER 185 mg/dL 70-110 H : TESTED A T [facility] (BEAKER) (test code = [place], 1538) [address]: Entry Engineer/Techni heather ID = [id number] for EMANI DELGADO CBC W/PLT COUNT & AUTO [id number] 10:14:00 Test Item Value Reference Range Interpretation Comments WHITE BLOOD CELL COUNT (BEAKER) 16.0 K/ L 3.5-10.5 H (test code = 775) RED BLOOD CELL COUNT (BEAKER) 3.00 M/ L 4.63-6.08 L (test code = 761) HEMOGLOBIN (BEAKER) (test code = 9.5 GM/DL 13.7-17.5 L 410) HEMATOCRIT (BEAKER) (test code = 30.3 % 40.1-51.0 L 411) MEAN CORPUSCULAR VOLUME (BEAKER) 101.0 fL 79.0-92.2 H (test code = 753) MEAN CORPUSCULAR HEMOGLOBIN 31.7 pg 25.7-32.2 (BEAKER) (test code = 751) MEAN CORPUSCULAR HEMOGLOBIN CONC 31.4 GM/DL 32.3-36.5 L (BEAKER) (test code = 752) RED CELL DISTRIBUTION WIDTH 13.3 % 11.6-14.4 (BEAKER) (test code = 412) PLATELET COUNT (BEAKER) (test 187 K/CU MM 150-450 code = 756) MEAN PLATELET VOLUME (BEAKER) 8.7 fL 9.4-12.4 L (test code = 754) NUCLEATED RED BLOOD CELLS 0 /100 WBC 0-0 (BEAKER) (test code = 413) (CELLAVISION MANUAL DIFF)2020-06-29 10:14:00 Test Item Value Reference Range Interpretation Comments NEUTROPHILS - REL 88 % (CELLAVISION)(BEAKER) (test code = 2816) LYMPHOCYTES - REL 6 % (CELLAVISION)(BEAKER) (test code = 2817) MONOCYTES - REL 2 % (CELLAVISION)(BEAKER) (test code = 2818) EOSINOPHILS - REL 2 % (CELLAVISION)(BEAKER) (test code = 2819) METAMYELOCYTES - REL 1 % 0-0 H (CELLAVISION)(BEAKER) (test code = 2821) MYELOCYTES - REL 1 % 0-0 H (CELLAVISION)(BEAKER) (test code = 2822) NEUTROPHILS - ABS 14.08 K/ul 1.78-5.38 H (CELLAVISION)(BEAKER) (test code = 2830) LYMPHOCYTES - ABS 0.96 K/ul 1.32-3.57 L (CELLAVISION)(BEAKER) (test code = 2831) MONOCYTES - ABS 0.32 K/uL 0.30-0.82 (CELLAVISION)(BEAKER) (test code = 2832) EOSINOPHILS - ABS 0.32 K/uL 0.04-0.54 (CELLAVISION)(BEAKER) (test code = 2834) METAMYELOCYTES - ABS 0.16 K/uL 0.00-0.00 H (CELLAVISION)(BEAKER) (test code = 2836) MYELOCYTES-ABS 0.16 K/uL 0.00-0.00 H (CELLAVISION)(BEAKER) (test code = 2837) TOTAL COUNTED (BEAKER) (test code 100 = 1351) RBC MORPHOLOGY (BEAKER) (test code Normal = 762) WBC MORPHOLOGY (BEAKER) (test code Normal = 487) PLT MORPHOLOGY (BEAKER) (test code Normal = 486) ARTIFACT (CELLAVISION)(BEAKER) Present (test code = 3432) PLATELET CONCENTRATION Adequate (CELLAVISION)(BEAKER) (test code = 3438) Entry Engineer ID - Raven Ledesma comments: Slide comments:POCT-GLUCOSE METER 2020-06-29 08:10:00 Test Item Value Reference Range Interpretation Comments POC-GLUCOSE METER 148 mg/dL 70-110 H : TESTED A T [facility] (BEAKER) (test code = SHRAVAN Mandi [place], 1538) 88[address]: Entry Engineer/Techni heather ID = [id number] for [place] STRO, EMANI [id number] 07:22:00 Test Item Value Reference Range Interpretation Comments Magnesium (test code = 1.6 mg/dL 1.6-2.6 56289-6) CACHORRO (test code = CACHORRO) Entry Engineer ID - SARBJIT Molina Lab Interpretation (test Normal code = 58901-0) [facility] [id number] 07:22:00 Test Item Value Reference Range Interpretation Comments SODIUM (BEAKER) 134 meq/L 136-145 L (test code = 381) POTASSIUM (BEAKER) 4.5 meq/L 3.5-5.1 (test code = 379) CHLORIDE (BEAKER) 105 meq/L 98-107 (test code = 382) CO2 (BEAKER) (test 18 meq/L 22-29 L code = 355) BLOOD UREA NITROGEN 24 mg/dL 7-21 H (BEAKER) (test code = 354) CREATININE (BEAKER) 1.49 mg/dL 0.57-1.25 H (test code = 358) GLUCOSE RANDOM 152 mg/dL 70-105 H (BEAKER) (test code = 652) CALCIUM (BEAKER) 9.1 mg/dL 8.4-10.2 (test code = 697) EGFR (BEAKER) (test 46 mL/min/1.73 ESTIMA VY GFR IS code = 1092) sq m NOT ACCURATE CREATININE CLEARANCE IN PREDICTING GLOMERULAR FILTRATION RATE . ESTIMATED GFR I S NOT APPLICABLE FOR DIALYSIS PATIEN TS. Entry Engineer ID - SARBJIT [id number] 07:22:00 Test Item Value Reference Range Interpretation Comments MAGNESIUM (BEAKER) (test code = 1.6 mg/dL 1.6-2.6 627) Entry Engineer ID - SARBJIT [id number] 07:08:00 Test Item Value Reference Range Interpretation Comments PARTIAL THROMBOPLASTIN TIME 71.2 seconds 22.5-36.0 H (BEAKER) (test code = 760) [id number] 00:38:00 Test Item Value Reference Range Interpretation Comments PARTIAL THROMBOPLASTIN TIME 36.4 seconds 22.5-36.0 H (BEAKER) (test code = 760) [id number] 22:00:00 Test Item Value Reference Range Interpretation Comments PARTIAL THROMBOPLASTIN TIME 122.0 seconds 22.5-36.0 H (BEAKER) (test code = 760) POCT-GLUCOSE [id number] 21:36:00 Test Item Value Reference Range Interpretation Comments POC-GLUCOSE METER 153 mg/dL 70-110 H : TESTED A T [facility] ([facility]) (test code = SHRAAVN [place], 1538) [address]: Entry Engineer/Techni heather ID = [id number] for PIPPA GUERIN Vancomycin level, [id number] 21:03:00 Test Item Value Reference Range Interpretation Comments Vancomycin Tr (test code = 26.1 ug/mL 10-20 H 4092-3) CACHORRO (test code = CACHORRO) Entry Engineer ID - DB Lab Interpretation (test Abnormal code = 95165-2) [facility], [id number] 21:03:00 Test Item Value Reference Range Interpretation Comments VANCOMYCIN TROUGH (BEAKER) (test 26.1 ug/mL 10.0-20.0 H code = 522) Entry Engineer ID - DBPOCT-GLUCOSE [id number] 17:48:00 Test Item Value Reference Range Interpretation Comments POC-GLUCOSE METER 129 mg/dL 70-110 H : Notified RN/MD: (SHIV) (test code = TESTED AT [place] [address] 153) [facility], [address]: Entry Engineer/Techni heather ID = [id number] for AN MALIHA CARBALLO [id number] 14:09:00 Test Item Value Reference Range Interpretation Comments PARTIAL THROMBOPLASTIN TIME 41.5 seconds 22.5-36.0 H (BEAKER) (test code = 760) POCT-GLUCOSE [id number] 11:54:00 Test Item Value Reference Range Interpretation Comments POC-GLUCOSE METER 130 mg/dL 70-110 H : Notified RN/MD: (ERIK) (test code = TESTED AT [place] [address]) [facility], [address]: Entry Engineer/Techni heather ID = [id number] for AN MALIHA CARBALLO POCT-GLUCOSE [id number] 07:53:00 Test Item Value Reference Range Interpretation Comments POC-GLUCOSE METER 152 mg/dL 70-110 H : Notified RN/MD: (ERIK) (test code = TESTED AT [place] [address]) [facility], [address]: Entry Engineer/Techni heather ID = [id number] for AN MALIHA CARBALLO CBC W/PLT COUNT & AUTO [id number] 07:41:00 Test Item Value Reference Range Interpretation Comments WHITE BLOOD CELL COUNT (BEAKER) 14.8 K/ L 3.5-10.5 H (test code = 775) RED BLOOD CELL COUNT (BEAKER) 2.85 M/ L 4.63-6.08 L (test code = 761) HEMOGLOBIN (BEAKER) (test code = 8.9 GM/DL 13.7-17.5 L 410) HEMATOCRIT (BEAKER) (test code = 28.7 % 40.1-51.0 L 411) MEAN CORPUSCULAR VOLUME (BEAKER) 100.7 fL 79.0-92.2 H (test code = 753) MEAN CORPUSCULAR HEMOGLOBIN 31.2 pg 25.7-32.2 (BEAKER) (test code = 751) MEAN CORPUSCULAR HEMOGLOBIN CONC 31.0 GM/DL 32.3-36.5 L (BEAKER) (test code = 752) RED CELL DISTRIBUTION WIDTH 13.4 % 11.6-14.4 (BEAKER) (test code = 412) PLATELET COUNT (BEAKER) (test 164 K/CU MM 150-450 code = 756) MEAN PLATELET VOLUME (BEAKER) 9.6 fL 9.4-12.4 (test code = 754) NUCLEATED RED BLOOD CELLS 0 /100 WBC 0-0 (BEAKER) (test code = 413) (CELLAVISION MANUAL DIFF)2020-06-28 07:41:00 Test Item Value Reference Range Interpretation Comments NEUTROPHILS - REL 68 % (CELLAVISION)(BEAKER) (test code = 2816) LYMPHOCYTES - REL 15 % (CELLAVISION)(BEAKER) (test code = 2817) MONOCYTES - REL 11 % (CELLAVISION)(BEAKER) (test code = 2818) EOSINOPHILS - REL 3 % (CELLAVISION)(BEAKER) (test code = 2819) ATYPICAL LYMPHOCYTES - REL 3 % 0-0 H (CELLAVISION)(BEAKER) (test code = 2829) NEUTROPHILS - ABS 10.06 K/ul 1.78-5.38 H (CELLAVISION)(BEAKER) (test code = 2830) LYMPHOCYTES - ABS 2.22 K/ul 1.32-3.57 (CELLAVISION)(BEAKER) (test code = 2831) MONOCYTES - ABS 1.63 K/uL 0.30-0.82 H (CELLAVISION)(BEAKER) (test code = 2832) EOSINOPHILS - ABS 0.44 K/uL 0.04-0.54 (CELLAVISION)(BEAKER) (test code = 2834) ATYPICAL LYMPHOCYTES - ABS 0.44 K/uL 0.00-0.00 H (CELLAVISION)(BEAKER) (test code = 2858) TOTAL COUNTED (BEAKER) (test code 100 = 1351) SMUDGE CELLS (BEAKER) (test code = Present 1371) GIANT PLATELETS (BEAKER) (test Present code = 313) LENORE CELLS (BEAKER) (test code = 3+ many 474) PLATELET CONCENTRATION Adequate (CELLAVISION)(BEAKER) (test code = 3438) Entry Engineer ID - Magi Esposito comments: Slide comments:BASIC METABOLIC PANEL 2020-06-28 06:16:00 Test Item Value Reference Range Interpretation Comments SODIUM (BEAKER) 134 meq/L 136-145 L (test code = 381) POTASSIUM (BEAKER) 4.7 meq/L 3.5-5.1 (test code = 379) CHLORIDE (BEAKER) 105 meq/L 98-107 (test code = 382) CO2 (BEAKER) (test 19 meq/L 22-29 L code = 355) BLOOD UREA NITROGEN 24 mg/dL 7-21 H (BEAKER) (test code = 354) CREATININE (BEAKER) 1.60 mg/dL 0.57-1.25 H (test code = 358) GLUCOSE RANDOM 156 mg/dL 70-105 H (BEAKER) (test code = 652) CALCIUM (BEAKER) 8.6 mg/dL 8.4-10.2 (test code = 697) EGFR (BEAKER) (test 42 mL/min/1.73 ESTIMA VY GFR IS code = 1092) sq m NOT ACCURATE CREATININE CLEARANCE IN PREDICTING GLOMERULAR FILTRATION RATE . ESTIMATED GFR I S NOT APPLICABLE FOR DIALYSIS PATIEN TS. Entry Engineer ID - [id number] 05:08:00 Test Item Value Reference Range Interpretation Comments PARTIAL THROMBOPLASTIN TIME 38.2 seconds 22.5-36.0 H (BEAKER) (test code = 760) POCT-GLUCOSE [id number] 23:23:00 Test Item Value Reference Range Interpretation Comments POC-GLUCOSE METER 191 mg/dL 70-110 H : TESTED A T [facility] ([facility]) (test code = [facility], 1538) [address]: Entry Engineer/Techni heather ID = [id number] for JONATAN BENITEZ RA [id number] 21:47:00 Test Item Value Reference Range Interpretation Comments PARTIAL THROMBOPLASTIN TIME 44.5 seconds 22.5-36.0 H (BEAKER) (test code = 760) [id number] 18:57:00 Test Item Value Reference Range Interpretation Comments PARTIAL THROMBOPLASTIN TIME 129.6 seconds 22.5-36.0 H (BEAKER) (test code = 760) POCT-GLUCOSE [id number] 18:19:00 Test Item Value Reference Range Interpretation Comments POC-GLUCOSE METER 173 mg/dL 70-110 H : Notified RN/MD: ([facility]) (test code = TESTED AT [place] [id number]38) [facility], [address]: Entry Engineer/Techni heather ID = [id number] for AN MALIHA CARBALLO Arterial doppler legs [id number] 13:46:31[facility]SB[facility]ART[facility] MKCKESSON CPACSRight Impression1. The common femoral, profunda femoral, proximal/mid superficial femoralarteries are patent with triphasic Doppler waveforms.2. No flow is visualized in the the distal superficial femoral artery withreconstitution of flow in the popliteal artery.3. The popliteal artery is patent with biphasic Doppler waveforms.4. Flow is visualized in the mid and distal posterior tibial artery.5. No flow is visualized in the peroneal artery.6. The anterior tibial artery has stenosed flow proximally and no flowvisualized mid or distally.7. Calcifiedarteries and collateral flow are visualized throughout.Left Impression1. The common femoral, profunda femoral, superficial femoral and poplitealarteries are patent with triphasic/biphasic Doppler waveforms.2. Flow is visualized in the mid and distal posterior tibial artery withbiphasic Doppler waveforms.3. No flow is visualized in the peroneal artery.4. The anterior tibial artery is patent with biphasic Doppler waveforms.5. Calcified arteries and collateral flow are visualized throughout. Conclusions Summary Arterial imaging and Doppler analysis were performed bilaterally. The exam was technically difficult due to edema and patient body habitus. On the right, the common femoral, profunda femoral, proximal/mid superficial femoral arteries were patent with triphasic Doppler waveforms. No flow was visualized in the the distal superficial femoral artery with reconstitution of flow in the popliteal artery. The popliteal artery was patent with biphasic Doppler waveforms. Flow was visualized in themid and distal posterior tibial artery. No flow was visualized in the peroneal artery. The anterior tibial artery had stenosed flow proximally and no flow visualized mid or distally. On the left, the common femoral, profunda femoral, superficial femoral and popliteal arteries were patent with triphasic/biphasic Doppler waveforms. Flow was visualized in the mid and distal posterior tibial artery. No flow was visualized in the peroneal artery. The anterior tibial artery was patent with biphasic Doppler waveforms. Bilaterally, calcified arteries and collateral flow were visualized throughout. Signature Velocities are measured in cm/s ; Diameters are measured in cm LE Duplex Measurements Right Left + + + + + + + + + + !Location ! !PSV !EDV !Waveform ! !PSV !EDV !Waveform ! + + +----- + + + + + + + !Mid Common Femoral ! !99.8 ! ! ! !64.8 ! ! ! + + + + + + + + + + !Prox PFA ! !62.9 ! ! ! !43.4 ! !! + + + + + + + + + + !Prox SFA ! !128 ! ! ! !99.1 ! ! ! + + + + + + + + + + !Mid SFA ! !138 ! ! ! !103 ! ! ! + + + + + + + + + + !Dist SFA ! !62.1 ! ! ! !108 ! ! ! + + + + + + + ---------+ + + !Prox Popliteal ! !156 ! ! ! !43.2 ! ! ! + + + + + + + + + + !Dist Popliteal ! !130 ! ! ! !58.9 ! ! ! + + +-- + + + + + + + !Prox RESEARCH STUDY ASSISTANT ! !42.2 ! ! ! !11.8 ! ! ! + + + + + + + + + + !Mid RESEARCH STUDY ASSISTANT ! !77.8 ! ! ! + + + + + + !Dist RESEARCH STUDY ASSISTANT ! !44.8 ! ! ! +-------- + + + + + !Prox KYLEIGH ! !41 ! ! ! + + + + + + !Mid KYLEIGH ! !16 ! ! ! + + +------- + + + !Dist Peroneal ! !20.2 ! ! ! + + + +- + + Interface, External Ris In - 06/27/2020 1:46 PM [facility] LAB - Lower Extremity Arterial Duplex Demographics Patient Name LEVI COLEY Date of Study 06/26/2020 Age 75 Visit Number [id number] Gender Male Accession Number [id number] Date of 1945 Referring Suri Spencer Room Number 2419 Physician MD Fela Temporary Office Assistantabran Moreno Interpreting Madelyn Redmond, Physician ProcedureType of Study: Extremities Arteries: Lower Extremities Arterial Duplex, ARTERIAL DOPPLER LEGS, BILATERAL. Indications for Study:Leg pain and Leg swelling.Patient Statu s:STAT.Study Location:Portable.Technical Quality:Technically Difficult.Risk FactorsHistory of Disease + +----+ +!Brielle gnosis !Date!Comments !+ +----+ +!History/Risk ! !Obesity, DM, Pacemaker, CHF, Afib, HTN, Foot!!Factors: ! !Infection, Long time anticoagulation !+ +----+- +ImpressionsRight Impression1. The common femoral, profunda femoral, proximal/mid superficial femoralarteries are patent with triphasic Doppler waveforms.2. No flow is visualized in the the distal superficial femoral artery withreconstitution of flow in the popliteal artery.3. The popliteal artery is patent with biphasic Doppler waveforms.4. Flow is visualized in the mid and distal posterior tibial artery.5. No flow is visualized in the peroneal artery.6. The anterior tibial artery has stenosed flow proximally and no flowvisualized mid or distally.7. Calcified arteries and collateral flow are visualized throughout.Left Impression1. The common femoral, profunda femoral, superficial femoral and poplitealarteries are patent with triphasic/biphasic Doppler waveforms.2. Flow is visualized in the mid and distal posterior tibial artery withbiphasic Doppler waveforms.3. No flow is visualized in the peroneal artery.4. The anterior tibial artery is patent with biphasic Doppler waveforms.5. Calcified arteries and collateral flow are visualized throughout. Conclusions Summary Arterial imaging and Doppler analysis were performed bilaterally. The exam was technically difficult due to edema and patient body habitus. On the right, the common femoral, profunda femoral, proximal/mid superficial femoral arteries were patent with triphasic Doppler waveforms.No flow was visualized in the the distal superficial femoral artery with reconstitution of flow in the popliteal artery. The popliteal artery was patent with biphasic Doppler waveforms. Flow was visualized in the mid and distal posterior tibial artery. No flow was visualized in the peroneal artery. The anterior tibial artery had stenosed flow proximally and no flow visualized mid or distally. On the left, the common femoral, profunda femoral, superficial femoral and popliteal arteries were patent with triphasic/biphasic Doppler waveforms. Flow was visualized in the mid and distal posterior tibial artery. No flow was visualized in the peroneal artery. The anterior tibial artery was patent with biphasic Doppler waveforms. Bilaterally, calcified arteries and collateral flow were visualized throughout. Signature Electronically signedby Madelyn Redmond MD(Interpreting physician) on 06/27/2020 01:46 PM Velocities are measured in cm/s ; Diameters are measured in cmLE Duplex Measurements Right Left + + + + + + + + + + !Location ! !PSV !EDV !Waveform ! !PSV !EDV !Waveform ! + + + + + + + + + + !Mid Common Femoral ! !99.8 ! ! ! !64.8 ! ! ! + + + ---------+ + + + + + + !Prox PFA ! !62.9 ! ! ! !43.4 ! ! ! + + + + + + + + + + !Prox SFA ! !128 ! ! ! !99.1 ! ! ! + + + + + + + + + + !Mid SFA ! !138 ! ! ! !103 ! ! ! + + + + + + + + + + !Dist SFA ! !62.1 ! ! ! !108 ! ! ! + + + + + + +- + + + !Prox Popliteal ! !156 ! ! ! !43.2 ! ! ! + + + + + + + + + + !Dist Popliteal ! !130 ! ! ! !58.9 ! ! ! + + + + + + + + + + !Prox RESEARCH STUDY ASSISTANT ! !42.2 ! ! ! !11.8 ! ! ! + + +------- + + + + + + + !Mid RESEARCH STUDY ASSISTANT ! !77.8 ! ! ! + + + + + + !Dist RESEARCH STUDY ASSISTANT ! !44.8 ! ! ! + + + + + + !Prox KYLEIGH ! !41 ! ! ! + + + + + + !Mid KYLEIGH ! !16 ! ! ! + + + + + + !Dist Peroneal ! !20.2 ! ! ! + + + -------+ + +[facility] POCT-GLUCOSE [id number] 12:23:00 Test Item Value Reference Range Interpretation Comments POC-GLUCOSE METER 158 mg/dL 70-110 H : TESTED Javi T [facility] (BEAKER) (test code = [place], 1538) [id number]: Entry Engineer/Techni heather ID = [id number] for MALIHA HANNAH [id number] 12:15:00 Test Item Value Reference Range Interpretation Comments PARTIAL THROMBOPLASTIN TIME 49.5 seconds 22.5-36.0 H (BEAKER) (test code = 760) CBC W/PLT COUNT & AUTO [id number] 09:10:00 Test Item Value Reference Range Interpretation Comments WHITE BLOOD CELL COUNT (BEAKER) 13.0 K/ L 3.5-10.5 H (test code = 775) RED BLOOD CELL COUNT (BEAKER) 2.70 M/ L 4.63-6.08 L (test code = 761) HEMOGLOBIN (BEAKER) (test code = 8.7 GM/DL 13.7-17.5 L 410) HEMATOCRIT (BEAKER) (test code = 27.5 % 40.1-51.0 L 411) MEAN CORPUSCULAR VOLUME (BEAKER) 101.9 fL 79.0-92.2 H (test code = 753) MEAN CORPUSCULAR HEMOGLOBIN 32.2 pg 25.7-32.2 (BEAKER) (test code = 751) MEAN CORPUSCULAR HEMOGLOBIN CONC 31.6 GM/DL 32.3-36.5 L (BEAKER) (test code = 752) RED CELL DISTRIBUTION WIDTH 13.6 % 11.6-14.4 (BEAKER) (test code = 412) PLATELET COUNT (BEAKER) (test 234 K/CU MM 150-450 code = 756) MEAN PLATELET VOLUME (BEAKER) 9.2 fL 9.4-12.4 L (test code = 754) NUCLEATED RED BLOOD CELLS 0 /100 WBC 0-0 (BEAKER) (test code = 413) (CELLAVISION MANUAL DIFF)2020-06-27 09:10:00 Test Item Value Reference Range Interpretation Comments NEUTROPHILS - REL 60 % (CELLAVISION)(BEAKER) (test code = 2816) LYMPHOCYTES - REL 19 % (CELLAVISION)(BEAKER) (test code = 2817) MONOCYTES - REL 16 % (CELLAVISION)(BEAKER) (test code = 2818) EOSINOPHILS - REL 4 % (CELLAVISION)(BEAKER) (test code = 2819) BASOPHILS - REL 1 % (CELLAVISION)(BEAKER) (test code = 2820) NEUTROPHILS - ABS 7.80 K/ul 1.78-5.38 H (CELLAVISION)(BEAKER) (test code = 2830) LYMPHOCYTES - ABS 2.47 K/ul 1.32-3.57 (CELLAVISION)(BEAKER) (test code = 2831) MONOCYTES - ABS 2.08 K/uL 0.30-0.82 H (CELLAVISION)(BEAKER) (test code = 2832) EOSINOPHILS - ABS 0.52 K/uL 0.04-0.54 (CELLAVISION)(BEAKER) (test code = 2834) BASOPHILS - ABS 0.13 K/uL 0.01-0.08 H (CELLAVISION)(BEAKER) (test code = 2835) TOTAL COUNTED (BEAKER) (test code = 100 1351) WBC MORPHOLOGY (BEAKER) (test code Normal = 487) PLT MORPHOLOGY (BEAKER) (test code Normal = 486) ANISOCYTOSIS (BEAKER) (test code = 1+ few 961) MICROCYTES (BEAKER) (test code = 1+ few 965) ARTIFACT (CELLAVISION)(BEAKER) Present (test code = 8542) PLATELET CONCENTRATION Adequate (CELLAVISION)(BEAKER) (test code = 3438) Entry Engineer ID - Raven Ledesma comments: Slide comments:POCT-GLUCOSE METER 2020-06-27 08:03:00 Test Item Value Reference Range Interpretation Comments POC-GLUCOSE METER 150 mg/dL 70-110 H : TESTED A T [facility] (BEAKER) (test code = [place], 1538) [address]: Entry Engineer/Techni heather ID = [id number] for AN MALIHA CARBALLO BASIC METABOLIC [id number] 06:39:00 Test Item Value Reference Range Interpretation Comments SODIUM (BEAKER) 136 meq/L 136-145 (test code = 381) POTASSIUM (BEAKER) 4.7 meq/L 3.5-5.1 (test code = 379) CHLORIDE (BEAKER) 105 meq/L 98-107 (test code = 382) CO2 (BEAKER) (test 24 meq/L 22-29 code = 355) BLOOD UREA NITROGEN 22 mg/dL 7-21 H (BEAKER) (test code = 354) CREATININE (BEAKER) 1.46 mg/dL 0.57-1.25 H (test code = 358) GLUCOSE RANDOM 176 mg/dL 70-105 H (BEAKER) (test code = 652) CALCIUM (BEAKER) 8.4 mg/dL 8.4-10.2 (test code = 697) EGFR (BEAKER) (test 47 mL/min/1.73 ESTIMA VY GFR IS code = 1092) sq m NOT ACCURATE CREATININE CLEARANCE IN PREDICTING GLOMERULAR FILTRATION RATE . ESTIMATED GFR I S NOT APPLICABLE FOR DIALYSIS PATIEN TS. Entry Engineer ID - HIWOT [id number] 06:02:00 Test Item Value Reference Range Interpretation Comments PARTIAL THROMBOPLASTIN TIME 77.3 seconds 22.5-36.0 H (BEAKER) (test code = 760) [id number] 23:03:00 Test Item Value Reference Range Interpretation Comments PARTIAL THROMBOPLASTIN TIME 54.9 seconds 22.5-36.0 H (BEAKER) (test code = 760) POCT-GLUCOSE [id number] 17:54:00 Test Item Value Reference Range Interpretation Comments POC-GLUCOSE METER 139 mg/dL 70-110 H : TESTED A T [facility] 6720 (BEAKER) (test code = [facility], 153) [address]: Entry Engineer/Techni heather ID = [id number] for MALIHA HANNAH [id number] 15:39:00 Test Item Value Reference Range Interpretation Comments PARTIAL THROMBOPLASTIN TIME 41.6 seconds 22.5-36.0 H (BEAKER) (test code = 760) CBC (HEMOGRAM ONLY)2020-06-26 15:31:00 Test Item Value Reference Range Interpretation Comments WHITE BLOOD CELL COUNT (BEAKER) 12.7 K/ L 3.5-10.5 H (test code = 775) RED BLOOD CELL COUNT (BEAKER) 2.68 M/ L 4.63-6.08 L (test code = 761) HEMOGLOBIN (BEAKER) (test code = 8.5 GM/DL 13.7-17.5 L 410) HEMATOCRIT (BEAKER) (test code = 27.1 % 40.1-51.0 L 411) MEAN CORPUSCULAR VOLUME (BEAKER) 101.1 fL 79.0-92.2 H (test code = 753) MEAN CORPUSCULAR HEMOGLOBIN 31.7 pg 25.7-32.2 (BEAKER) (test code = 751) MEAN CORPUSCULAR HEMOGLOBIN CONC 31.4 GM/DL 32.3-36.5 L (BEAKER) (test code = 752) RED CELL DISTRIBUTION WIDTH 13.8 % 11.6-14.4 (BEAKER) (test code = 412) PLATELET COUNT (BEAKER) (test 197 K/CU MM 150-450 code = 756) MEAN PLATELET VOLUME (BEAKER) 8.7 fL 9.4-12.4 L (test code = 754) NUCLEATED RED BLOOD CELLS 0 /100 WBC 0-0 (BEAKER) (test code = 413) POCT-GLUCOSE [id number] 12:48:00 Test Item Value Reference Range Interpretation Comments POC-GLUCOSE METER 100 mg/dL 70-110 : TESTED A T [facility] 6720 (BEAKER) (test code = [facility], 1533) [address]: Entry Engineer/Techni heather ID = [id number] for AN MALIHA CARBALLO Venous doppler leg, [id number] 08:15:01Ejection [facility] ECHO HEARTLAB MKCKESSON CPACSRight Impression1. There is partial echogenic deep venous obstruction in the popliteal vein.2. There is no deep venous obstruction in the common femoral, profundafemoral or femoral veins.3. The posterior tibial and peroneal veins are poorly visualized.4. There is no superficial venous obstruction in the great saphenous veinwhere visualized. Conclusions Summary Venous duplex imaging and compression of the right lower extremity was performed. The veins were technically difficult to visualize due to edema and patient body habitus. 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 The right superficial venous system was patent and compressible with no evidence of thrombus where visualized. Signature Velocities are measured in cm/s ; Diameters are measured in cm Interface, External Ris In - 06/26/2020 8:15 AM CDTPV LAB - Lower Extremities DVT Study Demographics Patient Name LEVI COLEY KRYSTA Date of Study 06/25/2020 Age 75 Visit Number [id number] Gender Male Accession Number [id number] Date of 1945 Referring Suri Spencer Room Number ED21 Physician MD Fela Temporary Office Assistant Rajinder Moreno Interpreting Physician STEFANIE Foster ProcedureType of Study: Veins: Lower Extremities DVT Study, VENOUS DOPPLER LEG, RIGHT. Indications for Study:Leg pain and Leg swelling.Patient Status:STAT.Study Location:Po rtable.Technical Quality:Technically Difficult. - Results were reported to: Dr. Evans @ 23:15 (chronic).Risk FactorsHistory of Disease+ +----+ ---------+!Diagnosis !Date!Comments !+ --+----+ +!History/Risk ! !Obesity, DM, Pacemaker, CHF, Afib, HTN, Foot !!Factors: ! !Infection, Long time anticoagulation !+ +----+ +Imp ressionsRight Impression1. There is partial echogenic deep venous obstruction in the popliteal vein.2. There isno deep venous obstruction in the common femoral, profundafemoral or femoral veins.3. The posterior tibial and peroneal veins are poorly visualized.4. There is no superficial venous obstruction in the great saphenous veinwhere visualized. Conclusions Summary Venous duplex imaging and compression of the right lower extremity was performed. The veins were technically difficult to visualize due to edema and patient body habitus. 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 The right superficial venous system was patent and compressible with no evidence of thrombus where visualized. Signature Electronically signedby Madelyn Redmond MD(Interpreting physician) on 06/26/2020 08:14 AM Velocities are measured in cm/s ; Diameters are measured in [facility] Hemoglobin [id number] 08:11:00 Test Item Value Reference Range Interpretation Comments Hemoglobin A1C (test code = 4548-4) 7.2 % 4.3-6.1 H Lab Interpretation (test code = Abnormal 16869-3) [facility] [id number] 08:11:00 Test Item Value Reference Range Interpretation Comments HEMOGLOBIN A1C (BEAKER) (test code = 7.2 % 4.3-6.1 H 368) CBC W/PLT COUNT & AUTO [id number] 07:57:00 Test Item Value Reference Range Interpretation Comments WHITE BLOOD CELL COUNT (BEAKER) 14.5 K/ L 3.5-10.5 H (test code = 775) RED BLOOD CELL COUNT (BEAKER) 2.93 M/ L 4.63-6.08 L (test code = 761) HEMOGLOBIN (BEAKER) (test code = 9.2 GM/DL 13.7-17.5 L 410) HEMATOCRIT (BEAKER) (test code = 30.2 % 40.1-51.0 L 411) MEAN CORPUSCULAR VOLUME (BEAKER) 103.1 fL 79.0-92.2 H (test code = 753) MEAN CORPUSCULAR HEMOGLOBIN 31.4 pg 25.7-32.2 (BEAKER) (test code = 751) MEAN CORPUSCULAR HEMOGLOBIN CONC 30.5 GM/DL 32.3-36.5 L (BEAKER) (test code = 752) RED CELL DISTRIBUTION WIDTH 13.8 % 11.6-14.4 (BEAKER) (test code = 412) PLATELET COUNT (BEAKER) (test 218 K/CU MM 150-450 code = 756) MEAN PLATELET VOLUME (BEAKER) 8.8 fL 9.4-12.4 L (test code = 754) NUCLEATED RED BLOOD CELLS 0 /100 WBC 0-0 (BEAKER) (test code = 413) (CELLAVISION MANUAL DIFF)2020-06-26 07:57:00 Test Item Value Reference Range Interpretation Comments NEUTROPHILS - REL 68 % (CELLAVISION)(BEAKER) (test code = 2816) LYMPHOCYTES - REL 13 % (CELLAVISION)(BEAKER) (test code = 2817) MONOCYTES - REL 11 % (CELLAVISION)(BEAKER) (test code = 2818) EOSINOPHILS - REL 6 % (CELLAVISION)(BEAKER) (test code = 2819) BASOPHILS - REL 1 % (CELLAVISION)(BEAKER) (test code = 2820) BANDS - REL (CELLAVISION)(BEAKER) 1 % 0-10 (test code = 2826) NEUTROPHILS - ABS 9.86 K/ul 1.78-5.38 H (CELLAVISION)(BEAKER) (test code = 2830) LYMPHOCYTES - ABS 1.89 K/ul 1.32-3.57 (CELLAVISION)(BEAKER) (test code = 2831) MONOCYTES - ABS 1.60 K/uL 0.30-0.82 H (CELLAVISION)(BEAKER) (test code = 2832) EOSINOPHILS - ABS 0.87 K/uL 0.04-0.54 H (CELLAVISION)(BEAKER) (test code = 2834) BASOPHILS - ABS 0.15 K/uL 0.01-0.08 H (CELLAVISION)(BEAKER) (test code = 2835) BANDS - ABS (CELLAVISION)(BEAKER) 0.15 K/uL 0.00-0.80 (test code = 2840) TOTAL COUNTED (BEAKER) (test code = 100 1351) WBC MORPHOLOGY (BEAKER) (test code Normal = 487) PLT MORPHOLOGY (BEAKER) (test code Normal = 486) POIKILOCYTES (BEAKER) (test code = 1+ few 966) OVALOCYTES (BEAKER) (test code = 1+ few 477) ARTIFACT (CELLAVISION)(BEAKER) Present (test code = 3432) PLATELET CONCENTRATION Adequate (CELLAVISION)(BEAKER) (test code = 3438) Entry Engineer ID - Raven Ledesma comments: Slide comments:SARS-COV2/RT-PCR ([facility])2020-06-26 05:27:00 Test Item Value Reference Range Interpretation Comments SARS-COV2/RT-PCR (test Negative Not Detected, Negative, code = 8001226) See external report for linked test SARS-COV-2 PERFORMING LAB [facility] (test code = 0799061) Negative result for this test determines that SARS-CoV-2 RNA was not present in the specimen above the Limit of Detection (LOD). However, Negative results do not preclude SARS-CoV-2 infection and should not be used as the sole basis for treatment or patient management decisions. Negative results mustbe combined with clinical observations, patient history, and epidemiological information. A false negative result may occur if a specimen is improperly collected, transported or handled. A false negative result should be considered if patient's recent exposures or clinical presentation indicate that COVID-19 (SARS-CoV-2) is likely and diagnostic tests for other causes of illness are negative. Re-testing should be considered in cases of suspected false negatives.The limit of detection for this assay is 100 copies/mL.This SARS CoV-2 test is a real-time RT-PCR test intended for the qualitative detection of nucleic acid from SARS-CoV-2 in a nasopharyngeal swab specimen collected from individuals susp ected of COVID-19 by their healthcare provider.This test has not been Food and Drug Administration (FDA) cleared or approved. This is a modified version of an approved Emergency Use Authorization (EUA) and is in the process of review by the FDA. Once authorized by the FDA, the issued EUA will be effective until the declaration that circumstances exist justifying the authorization of the emergency use of in vitro diagnostic tests for detection and/or diagnosis of COVID-19 is terminated under Section 564(b)(2) of the Act or the EUA is revoked under Section 564(g) of the Act.Testing was performed using the 1DayLater SARS-CoV-2 assay.Fact Sheet for Healthcare Providers:https://www.Mommy Nearest.Clinverse/libby/ FL_ZONY-EnO-0_JWF_Vvfv_Csyft_11-002491.pdfFact Sheet for Healthcare Patients:https://www.Mommy Nearest.ab dario/libby/YP_HWIP-YtD-4_Uhkwwel_Wzye_Eiiel_YC_59-891460L7.pdfPerforming Laboratory:[facility] [place] [address] Vitamin B12 and [id number] 05:14:00 Test Item Value Reference Range Interpretation Comments Vitamin B12 (test 832 pg/mL 213-816 H code = 2132-9) Folate (test code = 17.50 ng/mL See_Comment [Automa vy 2284-8) message] The system which generated this result transmit vy reference range : >=7.00. The reference range was not used to interpret this result as normal/abnormal . CACHORRO (test code = CACHORRO) Entry Engineer SYLVIA Molina Lab Interpretation Abnormal (test code = 71452-0) [facility] Center[facility]IT[facility]IN B12 AND [id number] 05:14:00 Test Item Value Reference Range Interpretation Comments VITAMIN B12 832 pg/mL 213-816 H (BEAKER) (test code = 774) FOLATE (BEAKER) 17.50 ng/mL See_Comment [Automated message] (test code = 362) The system which generated this result transmitted ref erence range: >=7.00. The reference range was not used to interpr et this result as normal/abnormal . Entry Engineer SYLVIA SCHAFFER MC-Reactive [id number] 04:29:00 Test Item Value Reference Range Interpretation Comments CRP (test code = 676) 5.28 mg/dL 0-0.5 H CACHORRO (test code = CACHORRO) Entry Engineer SYLVIA Molina Lab Interpretation (test Abnormal code = 57226-2) [facility] CenterC-REACTIVE [id number] 04:29:00 Test Item Value Reference Range Interpretation Comments C-REACTIVE PROTEIN (BEAKER) (test 5.28 mg/dL 0.00-0.50 H code = 676) Entry Engineer SYLVIA SAMANOASIC METABOLIC [id number] 04:29:00 Test Item Value Reference Range Interpretation Comments SODIUM (BEAKER) 139 meq/L 136-145 (test code = 381) POTASSIUM (BEAKER) 4.7 meq/L 3.5-5.1 (test code = 379) CHLORIDE (BEAKER) 108 meq/L 98-107 H (test code = 382) CO2 (BEAKER) (test 20 meq/L 22-29 L code = 355) BLOOD UREA NITROGEN 22 mg/dL 7-21 H (BEAKER) (test code = 354) CREATININE (BEAKER) 1.36 mg/dL 0.57-1.25 H (test code = 358) GLUCOSE RANDOM 126 mg/dL 70-105 H (BEAKER) (test code = 652) CALCIUM (BEAKER) 8.6 mg/dL 8.4-10.2 (test code = 697) EGFR (BEAKER) (test 51 mL/min/1.73 ESTIMA VY GFR IS code = 1092) sq m NOT ACCURATE CREATININE CLEARANCE IN PREDICTING GLOMERULAR FILTRATION RATE . ESTIMATED GFR I S NOT APPLICABLE FOR DIALYSIS PATIEN TS. Entry Engineer ID - SARBJIT MRAD, FOOT, MIN 3 VIEWS, [id number] 23:41:00Reason for exam:->LEG PAINReason for exam:->LEG SWELLING [facility] CENTERName: LEVI COLEY KRYSTA : 1945 Sex: MFINAL REPORT RAD, FOOT, MIN 3 VIEWS, RIGHT CLINICAL INDICATION: Leg pain and swelling. COMPARISON: None TECHNIQUE: Frontal, lateral and oblique views of the right foot were obtained. FINDINGS: There is diffuse soft tissue swelling. There are diffuse vascular calcifications. There is no soft tissue gas or radiographic evidence of osteomyelitis. There is generalized osteopenia. There is a hallux valgus. There is mild hypertrophic change at the head of the first metatarsal bone. There is a small plantar calcaneal spur. There is Achilles tendon enthesopathy. There is no acute fracture or dislocation. IMPRESSION: Diffuse soft tissue swelling. No soft tissue gas or radiographic evidence of osteomyelitis. Signed: Jatinder Hemphill MDReport Verified Date/Time: 06/25/2020 23:41:40 (CELLAVISION MANUAL DIFF)2020-06-25 19:49:00 Test Item Value Reference Range Interpretation Comments NEUTROPHILS - REL 63 % (CELLAVISION)(BEAKER) (test code = 2816) LYMPHOCYTES - REL 11 % (CELLAVISION)(BEAKER) (test code = 2817) MONOCYTES - REL 16 % (CELLAVISION)(BEAKER) (test code = 2818) EOSINOPHILS - REL 5 % (CELLAVISION)(BEAKER) (test code = 2819) METAMYELOCYTES - REL 1 % 0-0 H (CELLAVISION)(BEAKER) (test code = 2821) MYELOCYTES - REL 1 % 0-0 H (CELLAVISION)(BEAKER) (test code = 2822) BANDS - REL (CELLAVISION)(BEAKER) 1 % 0-10 (test code = 2826) NEUTROPHILS - ABS 9.07 K/ul 1.78-5.38 H (CELLAVISION)(BEAKER) (test code = 2830) LYMPHOCYTES - ABS 1.58 K/ul 1.32-3.57 (CELLAVISION)(BEAKER) (test code = 2831) MONOCYTES - ABS 2.30 K/uL 0.30-0.82 H (CELLAVISION)(BEAKER) (test code = 2832) EOSINOPHILS - ABS 0.72 K/uL 0.04-0.54 H (CELLAVISION)(BEAKER) (test code = 2834) METAMYELOCYTES - ABS 0.14 K/uL 0.00-0.00 H (CELLAVISION)(BEAKER) (test code = 2836) MYELOCYTES-ABS 0.14 K/uL 0.00-0.00 H (CELLAVISION)(BEAKER) (test code = 2837) BANDS - ABS (CELLAVISION)(BEAKER) 0.14 K/uL 0.00-0.80 (test code = 2840) TOTAL COUNTED (BEAKER) (test code = 100 1351) GIANT PLATELETS (BEAKER) (test code Present = 313) HYPERSEGMENTATION Present (CELLAVISION)(BEAKER) (test code = 3445) POLYCHROMATOPHILLIC RBCS(BEAKER) 1+ few (test code = 478) ARTIFACT (CELLAVISION)(BEAKER) Present (test code = 3432) PLATELET CONCENTRATION Adequate (CELLAVISION)(BEAKER) (test code = 3438) Entry Engineer ID - Anastasia comments: Slide comments:Lactic acid, venous 2020-06-25 19:36:00 Test Item Value Reference Range Interpretation Comments Lactate, Venous (test code = 0.52 mmol/L 0.5-2.2 2872) CACHORRO (test code = CACHORRO) Entry Engineer ID - BS Lab Interpretation (test Normal code = 92417-5) [facility] CenterBASIC [facility]OLIC [id number] 19:36:00 Test Item Value Reference Range Interpretation Comments SODIUM (BEAKER) 140 meq/L 136-145 (test code = 381) POTASSIUM (BEAKER) 4.6 meq/L 3.5-5.1 (test code = 379) CHLORIDE (BEAKER) 108 meq/L 98-107 H (test code = 382) CO2 (BEAKER) (test 24 meq/L 22-29 code = 355) BLOOD UREA NITROGEN 21 mg/dL 7-21 (BEAKER) (test code = 354) CREATININE (BEAKER) 1.39 mg/dL 0.57-1.25 H (test code = 358) GLUCOSE RANDOM 107 mg/dL 70-105 H (BEAKER) (test code = 652) CALCIUM (BEAKER) 8.3 mg/dL 8.4-10.2 L (test code = 697) EGFR (BEAKER) (test 50 mL/min/1.73 ESTIMA VY GFR IS code = 1092) sq m NOT ACCURATE CREATININE CLEARANCE IN PREDICTING GLOMERULAR FILTRATION RATE . ESTIMATED GFR I S NOT APPLICABLE FOR DIALYSIS PATIEN TS. Entry Engineer ID - BSC-REACTIVE [id number] 19:36:00 Test Item Value Reference Range Interpretation Comments C-REACTIVE PROTEIN (BEAKER) (test 4.79 mg/dL 0.00-0.50 H code = 676) Entry Engineer ID - BSLACTIC ACID, [id number] 19:36:00 Test Item Value Reference Range Interpretation Comments LACTATE BLOOD VENOUS (2) (BEAKER) 0.52 mmol/L 0.50-2.20 (test code = 2872) Entry Engineer ID - [id number] 19:32:00 Test Item Value Reference Interpretation Comments Range Protime (test code = 16.8 See_Comment H [Autom ated 5902-2) message] The system which generated this result transmitted reference range : 11.9 - 14.2 seconds. The reference range was not used to interpret this result as normal/abnormal . INR (test code = 1.40 See_Comment [Automated 1951-6) message] The system which generated this result transmitted reference range : <=5.90. The reference range was not used to interpret this result as normal/abnormal . PTT (test code = 39.7 See_Comment H [Automated 29435-2) message] The system which generated this result transmitted reference range : 22.5 - 36.0 seconds. The reference range was not used to interpret this result as normal/abnormal . CACHORRO (test code = Effective 07/06/2018: CACHORRO) PT Reference Range ChangeNew: 11.9-14.2 Previous: 11.7-14.7 RECOMMENDED COUMADIN/WARFARIN INR THERAPY RANGESSTANDARD DOSE: 2.0-3.0 Includes: PROPHYLAXIS for venous thrombosis, systemic embolization; TREATMENT for venous thrombosis and/or pulmonary embolus.HIGH RISK: Target INR is 2.5-3.5 for patients wiht mechanical heart valves. Lab Interpretation Abnormal (test code = 77864-7) [facility] CenterPT/[id number] 19:32:00 Test Item Value Reference Range Interpretation Comments PROTIME (BEAKER) (test 16.8 seconds 11.9-14.2 H code = 759) INR (BEAKER) (test 1.40 See_Comment [Automat ed code = 370) message] The sy stem which generated this result transmitted reference range : <=5.90. The reference range was not used to interpret this result as normal/abnormal . PARTIAL THROMBOPLASTIN 39.7 seconds 22.5-36.0 H TIME (BEAKER) (test code = 760) Effective 07/06/2018: PT Reference Range ChangeNew: 11.9-14.2 Previous: 11.7- 14.7RECOMMENDED COUMADIN/WARFARIN INR THERAPY RANGESSTANDARD DOSE: 2.0-3.0 Includes: PROPHYLAXIS for venous thrombosis, systemic embolization; TREATMENT for venous thrombosis and/or pulmonary embolus.HIGH RISK: Target INR is2.5-3.5 for patients wiht mechanical heart valves.CBC W/PLT COUNT & AUTO [id number] 19:25:00 Test Item Value Reference Range Interpretation Comments WHITE BLOOD CELL COUNT (BEAKER) 14.4 K/ L 3.5-10.5 H (test code = 775) RED BLOOD CELL COUNT (BEAKER) 2.86 M/ L 4.63-6.08 L (test code = 761) HEMOGLOBIN (BEAKER) (test code = 9.0 GM/DL 13.7-17.5 L 410) HEMATOCRIT (BEAKER) (test code = 28.7 % 40.1-51.0 L 411) MEAN CORPUSCULAR VOLUME (BEAKER) 100.3 fL 79.0-92.2 H (test code = 753) MEAN CORPUSCULAR HEMOGLOBIN 31.5 pg 25.7-32.2 (BEAKER) (test code = 751) MEAN CORPUSCULAR HEMOGLOBIN CONC 31.4 GM/DL 32.3-36.5 L (BEAKER) (test code = 752) RED CELL DISTRIBUTION WIDTH 13.9 % 11.6-14.4 (BEAKER) (test code = 412) PLATELET COUNT (BEAKER) (test 217 K/CU MM 150-450 code = 756) MEAN PLATELET VOLUME (BEAKER) 9.0 fL 9.4-12.4 L (test code = 754) NUCLEATED RED BLOOD CELLS 0 /100 WBC 0-0 (BEAKER) (test code = 413) POCT-GLUCOSE [id number] 13:28:00 Test Item Value Reference Range Interpretation Comments POC-GLUCOSE METER 270 mg/dL 70-110 H TESTED AT [place] [id number] ([facility]) (test code = [place] 1538) [id number] POCT-GLUCOSE [id number] 08:58:00 Test Item Value Reference Range Interpretation Comments POC-GLUCOSE METER 147 mg/dL 70-110 H TESTED AT [facility] 67[address] (BEAKER) (test code = [place] 1538) [id number] CBC W/PLT COUNT & AUTO [id number] 08:53:00 Test Item Value Reference Range Interpretation [...] 0-1 PERCENT (BEAKER) (test code = 2801) [id number] 08:05:00 Test Item Value Reference Range Interpretation Comments MAGNESIUM (BEAKER) (test code = 1.5 mg/dL 1.6-2.6 L 627) BASIC METABOLIC [id number] 08:05:00 Test Item Value Reference Range Interpretation [...] 697) EGFR (BEAKER) (test 43 mL/min/1.73 ESTIMA VY GFR IS code = 1092) sq m NOT ACCURATE CREATININE CLEARANCE IN PREDICTING GLOMERULAR FILTRATION RATE . ESTIMATED GFR I S NOT APPLICABLE FOR DIALYSIS PATIEN TS. POCT-GLUCOSE [id number] 21:57:00 Test Item Value Reference Range Interpretation Comments POC-GLUCOSE METER 219 mg/dL 70-110 H TESTED AT [facility] 67[facility] (BEAKER) (test code = SHRAVAN [place] 1538) [address] POCT-GLUCOSE [id number] 17:24:00 Test Item Value Reference Range Interpretation Comments POC-GLUCOSE METER 247 mg/dL 70-110 H TESTED AT [facility] 67[facility] (BEAKER) (test code = SHRAVAN [place] 1538) [address] CBC W/PLT COUNT & AUTO [id number] 13:56:00 Test Item Value Reference Range Interpretation [...] (BEAKER) (test code Normal = 762) POCT-GLUCOSE [id number] 13:22:00 Test Item Value Reference Range Interpretation Comments POC-GLUCOSE METER 226 mg/dL 70-110 H TESTED AT [place] [address] (BEAKER) (test code = SHRAVAN [place] 1538) [address] POCT-GLUCOSE [id number] 07:59:00 Test Item Value Reference Range Interpretation Comments POC-GLUCOSE METER 216 mg/dL 70-110 H TESTED AT [place] [address] (BEAKER) (test code = SHRAVAN [place] 1538) [address] [id number] 05:18:00 Test Item Value Reference Range Interpretation Comments MAGNESIUM (BEAKER) (test code = 1.7 mg/dL 1.6-2.6 627) BASIC METABOLIC [id number] 05:18:00 Test Item Value Reference Range Interpretation Comments SODIUM (BEAKER) 136 meq/L 136-145 (test code = 381) POTASSIUM (BEAKER) 3.4 meq/L 3.5-5.1 L (test code = 379) CHLORIDE (BEAKER) 101 meq/L 98-107 (test code = 382) CO2 (BEAKER) (test 26 meq/L 22-29 code = 355) BLOOD UREA NITROGEN 25 mg/dL 7-21 H (AKER) (test code = 354) CREATININE (BEAKER) 1.50 mg/dL 0.57-1.25 H (test code = 358) GLUCOSE RANDOM 216 mg/dL 70-105 H ([facility]) (test code = 652) CALCIUM (BEAKER) 8.5 mg/dL 8.4-10.2 (test code = 697) EGFR ([facility]) (test 46 mL/min/1.73 ESTIMA VY GFR IS code = 1092) sq m NOT ACCURATE CREATININE CLEARANCE IN PREDICTING GLOMERULAR FILTRATION RATE . ESTIMATED GFR I S NOT APPLICABLE FOR DIALYSIS PATIEN TS. POCT-GLUCOSE [id number] 20:58:00 Test Item Value Reference Range Interpretation Comments POC-GLUCOSE METER 260 mg/dL 70-110 H TESTED AT [place] [address] ([facility]) (test code = [facility] 1538) [address] POCT-GLUCOSE [id number] 17:32:00 Test Item Value Reference Range Interpretation Comments POC-GLUCOSE METER 237 mg/dL 70-110 H TESTED AT [place] [address] ([facility]) (test code = [facility] 1538) [address] POCT-GLUCOSE [id number] 16:21:00 Test Item Value Reference Range Interpretation Comments POC-GLUCOSE METER 223 mg/dL 70-110 H TESTED AT [place] [address] ([facility]) (test code = [facility] 1538) [address] CBC W/PLT COUNT & AUTO [id number] 14:22:00 Test Item Value Reference Range Interpretation Comments WHITE BLOOD CELL COUNT (BEAKER) 6.5 K/ L 3.5-10.5 (test code = 775) RED BLOOD CELL COUNT (BEAKER) 4.17 M/ L 4.63-6.08 L (test code = 761) HEMOGLOBIN (BEAKER) (test code = 11.3 GM/DL 13.7-17.5 L 410) HEMATOCRIT (BEAKER) (test code = 36.8 % 40.1-51.0 L 411) MEAN CORPUSCULAR VOLUME (AKER) 88.2 fL 79.0-92.2 (test code = 753) [...] (BEAKER) (test code = Normal 762) POCT-GLUCOSE [id number] 11:52:00 Test Item Value Reference Range Interpretation Comments POC-GLUCOSE METER 143 mg/dL 70-110 H TESTED AT [facility] 67[address] (BEAKER) (test code = [place]ERT[place] 1538) [address] POCT-GLUCOSE [id number] 08:04:00 Test Item Value Reference Range Interpretation Comments POC-GLUCOSE METER 86 mg/dL 70-110 TESTED AT [facility] 67[facility] (BEAKER) (test code = [facility] [address] 1538) [id number] 06:07:00 Test Item Value Reference Range Interpretation Comments MAGNESIUM (BEAKER) 1.6 mg/dL 1.6-2.6 Specimen slightly (test code = 627) hemolyzed BASIC METABOLIC [id number] 06:07:00 Test Item Value Reference Range Interpretation [...] 697) EGFR (BEAKER) (test 53 mL/min/1.73 ESTIMA VY GFR IS code = 1092) sq m NOT ACCURATE CREATININE CLEARANCE IN PREDICTING GLOMERULAR FILTRATION RATE . ESTIMATED GFR I S NOT APPLICABLE FOR DIALYSIS PATIEN TS. POCT-GLUCOSE [id number] 20:42:00 Test Item Value Reference Range Interpretation Comments POC-GLUCOSE METER 338 mg/dL 70-110 H TESTED AT [facility] (test code = [facility] 1538) [address] POCT-GLUCOSE [id number] 17:41:00 Test Item Value Reference Range Interpretation Comments POC-GLUCOSE METER 303 mg/dL 70-110 H TESTED AT [facility] 67[address] ([facility]) (test code = [facility] 1538) [address] RAD, CHEST, 1 VIEW, NON [id number] 14:44:00Reason for exam:->shortness of breath s/p RHCShould this be performed at the bedside?->YesFINAL REPORT CLINICAL HISTORY: shortness of breath s/p RHC TECHNIQUE: 1 viewof the chest. COMPARISON: 01/31/2017 IMPRESSION: Trace bilateral pleural effusions are again seen with left basilar atelectasis. The cardiomediastinal silhouette is magnified by technique with a pacemaker. Signed: Barbara Espinoza MDReport Verified Date/Time: 02/05/2017 14:44:20 Reading Location: [address] Consult Reading Room CBC W/PLT COUNT & AUTO [id number] 14:37:00 Test Item Value Reference Range Interpretation [...] (BEAKER) (test code = Normal 762) POCT-GLUCOSE [id number] 12:08:00 Test Item Value Reference Range Interpretation Comments POC-GLUCOSE METER 197 mg/dL 70-110 H TESTED AT [facility] 67[address] (BEAKER) (test code = [place] 1538) [address] POCT-GLUCOSE [id number] 07:55:00 Test Item Value Reference Range Interpretation Comments POC-GLUCOSE METER 149 mg/dL 70-110 H TESTED AT [facility] 67[address] (BEAKER) (test code = [place] 1538) [address] [id number] 05:21:00 Test Item Value Reference Range Interpretation Comments MAGNESIUM (BEAKER) (test code = 1.4 mg/dL 1.6-2.6 L 627) BASIC METABOLIC [id number] 05:21:00 Test Item Value Reference Range Interpretation Comments SODIUM (BEAKER) 139 meq/L 136-145 (test code = 381) POTASSIUM (BEAKER) 3.7 meq/L 3.5-5.1 (test code = 379) CHLORIDE (BEAKER) 107 meq/L 98-107 (test code = 382) CO2 (BEAKER) (test 23 meq/L 22-29 code = 355) BLOOD UREA NITROGEN 24 mg/dL 7-21 H (BEAKER) (test code = 354) CREATININE (BEAKER) 1.31 mg/dL 0.57-1.25 H (test code = 358) GLUCOSE RANDOM 155 mg/dL 70-105 H (BEAKER) (test code = 652) CALCIUM (BEAKER) 8.5 mg/dL 8.4-10.2 (test code = 697) EGFR (BEAKER) (test 54 mL/min/1.73 ESTIMA VY GFR IS code = 1092) sq m NOT ACCURATE CREATININE CLEARANCE IN PREDICTING GLOMERULAR FILTRATION RATE . ESTIMATED GFR I S NOT APPLICABLE FOR DIALYSIS PATIEN TS. POCT-GLUCOSE [id number] 21:03:00 Test Item Value Reference Range Interpretation Comments POC-GLUCOSE METER 296 mg/dL 70-110 H TESTED AT [place] [address] ([facility]) (test code = [facility] Mandi [facility] 1538) [address] POCT-GLUCOSE [id number] 17:18:00 Test Item Value Reference Range Interpretation Comments POC-GLUCOSE METER 275 mg/dL 70-110 H TESTED AT [place] [address] ([facility]) (test code = [facility] 1538) 97[address] CBC W/PLT COUNT & AUTO [id number] 15:04:00 Test Item Value Reference Range Interpretation [...] COUNTED (BEAKER) (test code = 1351) POCT-GLUCOSE [id number] 12:17:00 Test Item Value Reference Range Interpretation Comments POC-GLUCOSE METER 208 mg/dL 70-110 H TESTED AT [facility] 67[address] (BEAKER) (test code = SHRAVAN [place] 1538) [address] POCT-GLUCOSE [id number] 08:57:00 Test Item Value Reference Range Interpretation Comments POC-GLUCOSE METER 230 mg/dL 70-110 H TESTED AT [facility] 67[address] (BEAKER) (test code = SHRAVAN Raymond [facility] 1538) [address] [id number] 05:56:00 Test Item Value Reference Range Interpretation Comments MAGNESIUM (BEAKER) (test code = 1.6 mg/dL 1.6-2.6 627) BASIC METABOLIC [id number] 05:56:00 Test Item Value Reference Range Interpretation [...] 697) EGFR (BEAKER) (test 52 mL/min/1.73 ESTIMA VY GFR IS code = 1092) sq m NOT ACCURATE CREATININE CLEARANCE IN PREDICTING GLOMERULAR FILTRATION RATE . ESTIMATED GFR I S NOT APPLICABLE FOR DIALYSIS PATIEN TS. POCT-GLUCOSE [id number] 21:20:00 Test Item Value Reference Range Interpretation Comments POC-GLUCOSE METER 329 mg/dL 70-110 H Notified R Warren WATTS/TESTED (ERIK) (test code = AT [place] [address]2958) [facility] 7703 0 POCT-GLUCOSE [id number] 18:14:00 Test Item Value Reference Range Interpretation Comments POC-GLUCOSE METER 299 mg/dL 70-110 H TESTED AT [place] [id number] ([facility]) (test code = SHRAVAN [place] 877238) [address] CBC W/PLT COUNT & AUTO [id number] 15:17:00 Test Item Value Reference Range Interpretation [...] (BEAKER) (test code = Normal 762) POCT-GLUCOSE [id number] 12:54:00 Test Item Value Reference Range Interpretation Comments POC-GLUCOSE METER 173 mg/dL 70-110 H TESTED AT [facility] 67[address] (BEAKER) (test code = [place] 1538) [address] URINALYSIS W/ REFLEX URINE [id number] 12:06:00 Test Item Value Reference Range Interpretation [...] code = 1584) SOURCE(BEAKER) (test code = 6976) CREATININE, RANDOM [id number] 10:52:00 Test Item Value Reference Range Interpretation Comments CREATININE URINE (BEAKER) (test 127.3 mg/dL code = 375) Reference Range: No NormalsPROTEIN, RANDOM [id number] 10:52:00 Test Item Value Reference Range Interpretation Comments PROTEIN, URINE (BEAKER) (test code = 19 mg/dL 0-14 H 1569) POCT-GLUCOSE [id number] 07:55:00 Test Item Value Reference Range Interpretation Comments POC-GLUCOSE METER 88 mg/dL 70-110 TESTED AT [facility] 67[address] (BEAKER) (test code = SHRAVAN Raymond [facility] [address] 1538) [id number] 05:22:00 Test Item Value Reference Range Interpretation Comments MAGNESIUM (BEAKER) (test code = 1.8 mg/dL 1.6-2.6 627) BASIC METABOLIC [id number] 05:22:00 Test Item Value Reference Range Interpretation [...] 697) EGFR (BEAKER) (test 56 mL/min/1.73 ESTIMA VY GFR IS code = 1092) sq m NOT ACCURATE CREATININE CLEARANCE IN PREDICTING GLOMERULAR FILTRATION RATE . ESTIMATED GFR I S NOT APPLICABLE FOR DIALYSIS PATIEN TS. B-TYPE NATRIURETIC FACTOR (BNP)2017-02-03 05:17:00 Test Item Value Reference Range Interpretation Comments B-TYPE NATRIURETIC PEPTIDE (BEAKER) 315 pg/mL 0-100 H (test code = 700) POCT-GLUCOSE [id number] 21:36:00 Test Item Value Reference Range Interpretation Comments POC-GLUCOSE METER 230 mg/dL 70-110 H TESTED AT [facility] 67[address] (BEAKER) (test code = [facility] Mandi [facility] 1538) [address] POCT-GLUCOSE [id number] 17:50:00 Test Item Value Reference Range Interpretation Comments POC-GLUCOSE METER 185 mg/dL 70-110 H TESTED AT [facility] 67[address] ([facility]) (test code = [place] 1538) [address] POCT-GLUCOSE [id number] 12:49:00 Test Item Value Reference Range Interpretation Comments POC-GLUCOSE METER 168 mg/dL 70-110 H TESTED AT [facility] 67[facility] (test code = [place] 1538) [address] CT, CHEST, WITHOUT [id number] 11:27:00FINAL REPORT Chest CT without contrast Reason [...] airways. This could be followed. Signed: Car Madrigal MDReport Verified Date/Time: 02/02/2017 11:27:58 Reading Location: [address] Consult Reading Room POCT-GLUCOSE [id number] 08:24:00 Test Item Value Reference Range Interpretation Comments POC-GLUCOSE METER 84 mg/dL 70-110 TESTED AT [facility] 67[address] (BEAKER) (test code = [place] [address] 1538) [id number] 07:42:00 Test Item Value Reference Range Interpretation Comments MAGNESIUM (BEAKER) (test code = 1.8 mg/dL 1.6-2.6 627) BASIC METABOLIC [id number] 07:42:00 Test Item Value Reference Range Interpretation [...] 697) EGFR (BEAKER) (test 54 mL/min/1.73 ESTIMA VY GFR IS code = 1092) sq m NOT ACCURATE CREATININE CLEARANCE IN PREDICTING GLOMERULAR FILTRATION RATE . ESTIMATED GFR I S NOT APPLICABLE FOR DIALYSIS PATIEN TS. CBC W/PLT COUNT & AUTO [id number] 07:40:00 Test Item Value Reference Range Interpretation [...] PERCENT (BEAKER) (test code = 2801) POCT-GLUCOSE [id number] 21:29:00 Test Item Value Reference Range Interpretation Comments POC-GLUCOSE METER 273 mg/dL 70-110 H TESTED AT [facility] 67[address] (BEAKER) (test code = [place] 1538) [address] POCT-GLUCOSE [id number] 19:21:00 Test Item Value Reference Range Interpretation Comments POC-GLUCOSE METER 286 mg/dL 70-110 H TESTED AT [facility] 67[address] (BEAKER) (test code = [place] 1538) [address] POCT-GLUCOSE [id number] 17:33:00 Test Item Value Reference Range Interpretation Comments POC-GLUCOSE METER 263 mg/dL 70-110 H TESTED AT [facility] 67 (BEAKER) (test code = SHRAVAN Raymond [facility] 1538) [address] POCT-GLUCOSE [id number] 12:25:00 Test Item Value Reference Range Interpretation Comments POC-GLUCOSE METER 196 mg/dL 70-110 H TESTED AT [place] [address] (BEAKER) (test code = SHRAVAN Raymond [facility] 1538) 306[address] CBC W/PLT COUNT & AUTO [id number] 10:54:00 Test Item Value Reference Range Interpretation [...] (BEAKER) (test code = Normal 762) POCT-GLUCOSE [id number] 08:17:00 Test Item Value Reference Range Interpretation Comments POC-GLUCOSE METER 176 mg/dL 70-110 H TESTED AT [facility] 67[address] (BEAKER) (test code = SHRAVAN Mandi [place] 1538) [address] [id number] 06:41:00 Test Item Value Reference Range Interpretation Comments MAGNESIUM (BEAKER) (test code = 1.7 mg/dL 1.6-2.6 627) BASIC METABOLIC [id number] 06:41:00 Test Item Value Reference Range Interpretation [...] 358) GLUCOSE RANDOM 180 mg/dL 70-105 H ([facility]) (test code = 652) CALCIUM ([facility]) 8.4 mg/dL 8.4-10.2 (test code = 697) EGFR ([facility]) (test 48 mL/min/1.73 ESTIMA VY GFR IS code = 1092) sq m NOT ACCURATE CREATININE CLEARANCE IN PREDICTING GLOMERULAR FILTRATION RATE . ESTIMATED GFR I S NOT APPLICABLE FOR DIALYSIS PATIEN TS. POCT-GLUCOSE [id number] 21:33:00 Test Item Value Reference Range Interpretation Comments POC-GLUCOSE METER 295 mg/dL 70-110 H TESTED AT [facility] 67 ([facility]) (test code = [facility] 1538) [address] POCT-GLUCOSE [id number] 17:47:00 Test Item Value Reference Range Interpretation Comments POC-GLUCOSE METER 277 mg/dL 70-110 H TESTED AT [place] [address] ([facility]) (test code = [facility] 1538) [address] RAD, CHEST, 2 [id number] 15:44:00Reason for exam:->dyspneaFINAL REPORT HISTORY : dyspnea. [...] of the lower thoracic vertebral bodies. Signed: Modesta Moran MDReport Verified Date/Time: 01/31/2017 15:44:13 Reading Location: [facility] C013X Ortho Consult Reading Room POCT-GLUCOSE [id number] 11:51:00 Test Item Value Reference Range Interpretation Comments POC-GLUCOSE METER 238 mg/dL 70-110 H TESTED AT [facility] 67 ([facility]) (test code = [facility] 1538) 8[address]47 POCT-GLUCOSE [id number] 09:54:00 Test Item Value Reference Range Interpretation Comments POC-GLUCOSE METER 224 mg/dL 70-110 H TESTED AT [facility] 6720 (BEAKER) (test code = [place] 1538) [address] CBC W/PLT COUNT & AUTO [id number] 05:34:00 Test Item Value Reference Range Interpretation [...] 0-1 PERCENT (BEAKER) (test code = 2801) [id number] 05:19:00 Test Item Value Reference Range Interpretation Comments MAGNESIUM (BEAKER) (test code = 1.8 mg/dL 1.6-2.6 627) BASIC METABOLIC [id number] 05:19:00 Test Item Value Reference Range Interpretation [...] 697) EGFR (BEAKER) (test 42 mL/min/1.73 ESTIMA VY GFR IS code = 1092) sq m NOT ACCURATE CREATININE CLEARANCE IN PREDICTING GLOMERULAR FILTRATION RATE . ESTIMATED GFR I S NOT APPLICABLE FOR DIALYSIS PATIEN TS. STREP PNEUMONIAE [id number] 23:56:00 Test Item Value Reference Range Interpretation [...] below the detection limit of the test. LEGIONELLA ANTIGEN, [id number] 23:54:00 Test Item Value Reference Range Interpretation [...] may cau se disease. INFLUENZA A H1N1 [id number] 23:10:00 Test Item Value Reference Range Interpretation Comments INFLUENZA A RNA Not Detected Not Detected, (BEAKER) (test code = Inconclusive 1545) NOVEL H1N1 RNA (BEAKER) Not Detected Not Detected, (test code = 1546) Inconclusive These assays were performed by real-time RT-PCR (gearcase assembler-PCR) utilizing fluorogenic hydrolysis probe technology for the detection of human Influenza A viruses and the differential detection of novel H1N1 Influenza virus in respiratory specimens. The test is composed of (1) an RNA extraction from patient specimen, and (2) gearcase assembler-PCR amplification and detection with human Influenza A and novel B8G6-dabkpylz primers and probes. A well-conserved region of [...] its performance characte ristics determined by the [facility] Pathology Department, Section of Molecular Pathology. It has not been cleared or approved by the U.S. Food and Drug Administration (FDA). SinceFDA approval is not required for clinical use of the test, validation was done as required by The Clinical Laboratory Amendments of 1988.These assays were performed by real-time RT-PCR (gearcase assembler-PCR) utilizing fluorogenic hydrolysis probe technology for the detection of human Influenza A viruses and the differential detection of novel H1N1 Influenza virus in respiratory specimens. The test is composed of (1) an RNA extraction from patient specimen, and (2) gearcase assembler-PCR amplification and detection with human In fluenza A and novel G4U7-pqtqnrok primers and probes. A well-conserved region of [...] [facility], Section of Molecular Pathology. It has not been cleared or approved by the U.S. Food and Drug Administration (FDA). Since FDA approval is not required for clinical use of the test, validation was done as required by The Clinical Laboratory Amendments of 1988.POCT-GLUCOSE METER 2017-01-30 23:03:00 Test Item Value Reference Range Interpretation Comments POC-GLUCOSE METER 233 mg/dL 70-110 H TESTED AT [place] [address] ([facility]) (test code = [place] 1538) [address] U/S, RENAL, [id number] 22:23:00Reason for exam:->akiFINAL REPORT U/S, RENAL, COMPLETE CLINICAL INDICATION: "heidi" COMPARISON: None TECHNIQUE: The kidneys and urinary bladder were evaluated using real time coley scale and color Doppler sonography. FINDINGS:Right kidney: Atrophic echogenic kidney. No hydronephrosis. Left kidney: Atrophic echogenic kidney. No hydronephrosis. Renal Vasculature: Doppler interrogation reveals preserved vascular flow in the main renal arteries and veins bilaterally. The visualized portions of the abdominal aorta and IVC are unremarkable. Urinary bladder: Unremarkable. IMPRESSION: No hydr onephrosis.Chronic findings as above. Signed: Sariah Barrios MDReport Verified Date/Time: 01/30/2017 22:23:06 Reading Location: [facility] C013X [facility] Consult Reading Room SODIUM, RANDOM [id number] 20:40:00 Test Item Value Reference Range Interpretation Comments SODIUM URINE (BEAKER) (test code = < meq/L 243) Reference Range: No NormalsEOSINOPHIL SMEAR, [id number] 20:40:00 Test Item Value Reference Range Interpretation Comments EOSINOPHIL SMEAR, URINE (BEAKER) No EOS seen No EOS seen (test code = 1851) CREATININE, RANDOM [id number] 20:24:00 Test Item Value Reference Range Interpretation Comments CREATININE URINE (BEAKER) (test 113.2 mg/dL code = 375) Reference Range: No NormalsMICROALBUMIN, RANDOM [id number] 20:24:00 Test Item Value Reference Range Interpretation Comments MICROALBUMIN URINE (BEAKER) (test 4.2 mg/dL code = 1794) Reference Range: No NormalsURINALYSIS W/ [id number] 20:14:00 Test Item Value Reference Range Interpretation [...] 516) SOURCE(BEAKER) (test code = Urine, Voided 8702) POCT-GLUCOSE [id number] 18:25:00 Test Item Value Reference Range Interpretation Comments POC-GLUCOSE METER 230 mg/dL 70-110 H TESTED AT [place] [address] ([facility] (test code = SHRAVAN [place] 1538) [address] POCT-GLUCOSE [id number] 13:49:00 Test Item Value Reference Range Interpretation Comments POC-GLUCOSE METER 267 mg/dL 70-110 H TESTED AT [place] [address] ([facility]) (test code = SHRAVAN Raymond [facility] 1538) [address] HEMOGLOBIN [id number] 11:50:00 Test Item Value Reference Range Interpretation Comments HEMOGLOBIN A1C (ERIK) (test code = 10.7 % 4.3-6.1 H 368) TROPONIN [id number] 11:42:00 Test Item Value Reference Range Interpretation Comments [facility]OPONIN I ([facility] (test code = 0.02 ng/mL 0.00-0.03 397) [...] acidosis, acute neurological disease, and persistent tachyarrhythmia.POCT-GLUCOSE [id number] 09:41:00 Test Item Value Reference Range Interpretation Comments POC-GLUCOSE METER 228 mg/dL 70-110 H TESTED AT [place] [address] ([facility]) (test code = SHRAVAN Raymond [facility] 1538) [address] RAD, CHEST, 1 VIEW, NON [id number] 07:41:00Reason for exam:->eval pneumoniaShould this be performed [...] This could represent atelectasis or pneumonitis. Signed: Modesta Moranort Verified Date/Time: 01/30/2017 07:41:41 ReadingLocation: [facility] C013T Transitional Reading Room MAGNESIUM 2017-01-30 02:54:00 Test Item Value Reference Range Interpretation Comments MAGNESIUM (ERIK) (test code = 1.6 mg/dL 1.6-2.6 627) BASIC METABOLIC [id number] 02:54:00 Test Item Value Reference Range Interpretation [...] 697) EGFR (BEAKER) (test 38 mL/min/1.73 ESTIMA VY GFR IS code = 1092) sq m NOT ACCURATE CREATININE CLEARANCE IN PREDICTING GLOMERULAR FILTRATION RATE . ESTIMATED GFR I S NOT APPLICABLE FOR DIALYSIS PATIEN TS. RAPID INFLUENZA A&B [id number] 02:41:00 Test Item Value Reference Range Interpretation Comments RAPID INFLUENZA A AG (BEAKER) Negative Negative, Inconclusive (test code = 1622) RAPID INFLUENZA B AG (BEAKER) Negative Negative, Inconclusive (test code = 1623) CBC W/PLT COUNT & AUTO [id number] 02:07:00 Test Item Value Reference Range Interpretation [...] PERCENT (BEAKER) (test code = 2801) POCT-GLUCOSE [id number] 23:18:00 Test Item Value Reference Range Interpretation Comments POC-GLUCOSE METER 230 mg/dL 70-110 H TESTED AT [facility] 6720 (BEAKER) (test code = SHRAVAN BONILLA 1538) [address] CHEM [id number] 10:03[facility].1[facility] A[facility]YLF5455-79-19 10:03:002.6 [facility] AisucqhMNMFSQOBPDKT5717-28-00 10:03:0011.1[facility]annELECTROLYTES 2016-09-12 10:03:004.1[facility] KdicradBCXCGKMISAGE8644-82-33 10:03:98516Fnlocajr SmzkvweMWNDAOKXECBL6051-10-83 10:03:0025[facility] ZmvjoduXCTLDFOSNTXO7383-87-53 10:03:0074[facility] QrwvprpMBOZHCHJTZRU1459-52-32 10:03:0016[facility] IUUWDSQHGIKV5279-79-34 10:03:42086Ibvejwhy EweeagjALEYHAKEXODH9872-39-45 10:03:008.7[facility] DyrqiwwSHVKCOKCPOXG0475-55-55 10:03:001.00[facility] SNEBTXLRZIYA2327-02-44 10:03:59874Fpvicfjy OlgrkfpNSMCHIDCID8137-76-64 10:03:00 Normal (09/12/16 5:03 AM)[facility] XkueujqSGHGJUWLMH2374-28-48 10:03:000.0[facility] MbmeaayQDJIKSAXTG1970-17-75 10:03:000.0[facility] TtmzbxoTLNWQNDSWZ2370-52-28 10:03:0017.0[facility] DczunkkAYOJLFKOOW4299-91-68 10:03:00Normal (09/12/16 5:03 AM) [facility] EhesbmtOWXXYCFFES1763-29-73 10:03:001.0[facility]ann[facility]MATOLOGY 2016-09-12 10:03:0027.0[facility] ShanzmhVEDGPITQKQ5705-31-62 10:03:004.8[facility] YphsjjjXZCVZYLECF8262-23-21 10:03:002.3[facility] CmqejkxKXTFNQJBGZ3286-52-35 10:03:0055.0[facility] RcmdjarEURZCJKYSP3256-92-40 10:03:000.1[facility] GVZYEIKGKL1038-43-23 10:03:001.5[facility] PdognygMJTLBSEUWL1954-56-85 10:03:007.7 [facility] DdkbnkoKBVNHFRISE8354-23-76 10:03:00 Test Item Value Reference Range Interpretation Comments MCH (test code = MCH) 29.8 pg 27.0-31.0 [facility] BndlmywIXDMEJWEVN7845-78-82 10:03:0088.2[facility]annHEMATOLOGY 2016-09-12 10:03:43259Uzlxgobj FfacgxlQYZHHJWRLN8821-64-80 10:03:0014.7[facility] UhdzjncFQDAVZYALN4374-46-76 10:03:0033.8[facility] IyeklywZXDNTGEQEP9696-33-61 10:03:003.97[facility] KbmuvmwARRPTBKSGR2617-16-05 10:03:0011.8[facility] NDPONVKJBD1387-39-28 10:03:008.7[facility] YrmbrvcZWOPBDFJPH9440-46-92 10:03:00 35.0[facility]annCHEM SHTKV8461-99-34 23:45:003.8[facility]annCHEM PANEL 2016-09-11 23:45:46474Zasyuwjg HermannCHEM MATNR1020-46-70 23:45:001.07[facility]annCHEM YVYSI1082-62-67 23:45:0013[facility]annCHEM UVGSX1065-81-11 23:45:24506Hbkfwegu HermannCHEM VVZAT8403-29-61 23:45:0068[facility]annCHEM UGGMC9048-75-96 23:45:0013.8[facility]annCHEM XSDNB7172-44-49 23:45:009.0 [facility]annCHE[facility] KQZTH7885-94-98 23:45:0026[facility]annCHEM PANEL 2016-09-11 23:45:65902Ifixacva HermannBLOOD BANK LSICGVV3733-87-88 16:12:00 Negative (09/11/16 11:12 AM)[facility]annCHEM JPFKK6133-68-31 16:12:003.3 [facility]annCHE[facility] EOPAS1471-76-91 16:12:001.6[facility] HermannELECTROLYTES 2016-09-11 16:12:009.7[facility] KhgtcqcDMKFRAGWBGJL2617-65-49 16:12:0069[facility] RmabpucSHUUIZPNCBZA2898-67-24 16:12:0028[facility] PilqoczUOFHQICFQJTB6665-15-67 16:12:40600Qxaxxmrq HrjevkwSITWIXQBXSGC2321-87-62 16:12:003.7[facility] VOEHHMLMLNGV8698-58-95 16:12:008.9[facility] GgvvlsoIKYCGEIZNJWC1464-08-17 16:12:52750Vcuoakwo VlcrekcEILEJVAADGTB8365-43-94 16:12:001.06[facility] EENDVQJIIDFY7570-57-25 16:12:0015[facility] CjtfuttASEFLRDNGWRB9015-21-34 16:12:00 87[facility] ZcoktfyUPANPEJINB3881-60-62 16:12:0033.1[facility]annHEMATOLOGY 2016-09-11 16:12:95667Lqcevavo PtocekaTLKPXPPPEJ0664-69-34 16:12:0011.0[facility] FkvbexcZQBYKFPUQT7689-24-70 16:12:007.5[facility] CttnxpzOOWHLOKJCK7950-93-63 16:12:0089.2[facility] EuoevqeSUUZHAQLTI5780-54-78 16:12:00 Test Item Value Reference Range Interpretation Comments MCH (test code = MCH) 29.5 pg 27.0-31.0 [facility] VmhkcuiBHNSNANGFE6084-00-04 16:12:003.72[facility]annHEMATOLOGY 2016-09-11 16:12:0014.7[facility] UqggxdxEHQBINNLKJ9543-97-51 16:12:008.2[facility] FwebimtUTKUOBICAB3480-13-46 16:12:0033.1[facility] QocrkpjQUHFNEUGAL5866-94-43 16:12:00 Test Item Value Reference Range Interpretation Comments PT (test code = PT) 16.6 s 12.0-14.7 [facility] YuceylsCPGJRSDSOP5137-70-77 16:12:001.32[facility]annHEMATOLOGY 2016-09-11 16:12:00 Test Item Value Reference Range Interpretation Comments PTT (test code = PTT) 43.0 s 22.9-35.8 [facility] OceejlnCNITQNUMLF2614-17-44 16:12:001.6[facility]annHEMATOLOGY 2016-09-11 16:12:000.3[facility] JxaaneqVQKTQDIQZI1266-84-69 16:12:001.7[facility] MvxkxtzHZAPAAJYGE5567-23-56 16:12:000.5[facility] RrfelrlREOZWDPHYP7578-72-80 16:12:004.5[facility] EuaixorEKYXIFSCGA9315-24-34 16:12:003.4[facility] NQOHDCHBXM2766-95-43 16:12:0055.3[facility] JtfvieeRQOVLIYZKW1326-16-26 16:12:00 21.2[facility] OmxzdriAADVARCOZG7486-14-25 16:12:0019.6[facility]annCHEM PANEL 2014-03-05 16:27:009.4[facility] HermannCHEM KIFTY5319-65-65 16:27:0026[facility]annCHEM ELQQX8635-76-65 16:27:0040[facility]annCHEM XJHXM1965-86-53 16:27:0045[facility]annCHEM GBCDA9926-89-68 16:27:38615Jwldmudu HermannCHEM EYEWO1911-74-67 16:27:004.4[facility] HermannCHEM CCBGV1845-34-29 16:27:83199 [facility]annCHEM BUOVM1219-25-17 16:27:001.7[facility] HermannCHEM PANEL 2014-03-05 16:27:74719Jrifpdjr HermannCHEM NVSHS3498-00-92 16:27:0011.4[facility] CmahxdnGTXONXBDAR0541-55-78 16:27:007.3[facility] TovfxweUURVXNZJNZ0665-52-70 16:27:0033.9[facility] ZhumaakVHEPMFSPLP0106-15-21 16:27:58054Dfhpnfqm [facility] YOSGYCNMEZ1926-80-90 16:27:0013.7[facility] NkjkmgmRAIEUYSWAD6938-35-63 16:27:00 14.6[facility] QebakutZAUOKSMURB2080-68-77 16:27:0040.4[facility] HermannHEMATOLOGY 2014-03-05 16:27:00 Test Item Value Reference Range Interpretation Comments MCH (test code = MCH) 31.5 pg 27.0-31.0 [facility] IkxtadbPKXTJZJVDK5424-10-15 16:27:0092.8[facility] HermannHEMATOLOGY 2014-03-05 16:27:004.35[facility] KvbktntLVYMFLJBGG1097-65-09 16:27:009.4[facility] QpwhjvgPUZQZSTHJM8537-30-91 16:27:002.4[facility] XbiesjbLOWOONBBGV3898-52-09 16:27:0014.6[facility] SesqcymYYORXTNHFV3125-94-47 16:27:005.5[facility] YPCACWMRFL2662-50-41 16:27:0024.1[facility] TdknoqnJWCYPXEJAV3689-90-54 16:27:00 58.6[facility] DifiqvuNJJEVDUIAN1179-96-62 16:27:000.0[facility]annHEMATOLOGY 2014-03-05 16:27:000.2[facility] VtlugyfFMVXYHLSKD7079-82-33 16:27:000.3[facility] OmikkauGMFARKODHE7226-06-05 16:27:001.4[facility] YilvelqXXOOEQLNAC3013-53-90 16:27:002.3[facility]
--- NOTE | 2020-09-20 14:44 | RAD REPORT ---
EXAM DESCRIPTION: RAD - Lumbar Spine 3 Views - 09/20/2020 2:37 pm CLINICAL HISTORY: LOWER BACK PAIN COMPARISON: LUMBAR SPINE 3 VIEWS dated 01/31/2008 FINDINGS: No acute fracture lumbar spine. Multilevel degenerate disc disease noted with moderate dis c height loss at L4-5 and L5-S1. Trace anterolisthesis of L4 on L5. Minimal thoracolumbar curvature. Mild endplate spurring at the remaining levels. IMPRESSION: No acute fracture of the lumbar spine. Degenerative disc disease.
[2020-09-20] MEDS ORDERED: HYDROCODONE/APAP 5/325 MG TAB ONE (15:49)
[2020-09-20] MEDS ORDERED: LIDOCAINE 4% PATCH ONE (15:49)
--- NOTE | 2020-09-20 16:26 | EDPHYS ---
Physician Documentation [facility] Name: Ely Coley Age: 75 yrs Sex: Male : 1945 Arrival Date: 09/20/2020 Time: 12:35 Bed Waiting Private MD: ED Physician Robert Arteaga HPI: 09/20 14:09 This 75 yrs old Male presents to ER via Ambulatory with complaints of Back pm1 Pain. 14:09 The patient presents with pain that is acute. The symptoms are located in the low back. pm1 Onset: The symptoms/episode began/occurred yesterday. The pain does not radiate. Associated signs and symptoms: The patient has no apparent associated signs or symptoms, Pertinent negatives: fever, incontinence, numbness, tingling, weakness. The problem was sustained when bending over, when lifting boxes. Modifying factors: The patient symptoms are alleviated by remaining still, the patient symptoms are aggravated by bending. Severity of symptoms: in the emergency department the symptoms are actually worse. The patient has experienced a previous episode, many years ago. The patient has not recently seen a physician. With complaints of lower back pain onset yesterday after bending over and picking up a box. Patient reports multiple years ago similar symptoms after picking up a heavy object. Historical: - Allergies: 14:08 steroids; lm7 - Home Meds: 14:08 amiodarone 200 mg Oral tab 1 tab once daily [Active]; Eliquis 2.5 mg Oral tab 1 tab 2 lm7 times per day [Active]; glipizide 5 mg Oral tr24 1 tab once daily [Active]; Humalog Mix 75-25 100 unit/mL (75-25) Sub-Q susp use prn [Active]; Men's Multi-Vitamin Oral tab daily [Active]; PreserVision AREDS 7,160-113-100 yuok-jk-iayl Oral tab twice a day [Active]; spironolactone 25 mg Oral tab 1 tab 2 times per day [Active]; Stool Softener Oral 2 times per day [Active]; - PMHx: 14:08 Atrial Fib; CVA; Diabetes - IDDM; Diabetes - NIDDM; Hypertension; Pacemaker; lm7 - Immunization history:: Client reports receiving the 1st dose of the Covid vaccine, September 08, 2020. ROS: 14:09 Constitutional: Negative for fever, chills, and weight loss, Cardiovascular: Negative pm1 for chest pain, palpitations, and edema, Respiratory: Negative for shortness of breath, cough, wheezing, and pleuritic chest pain, Abdomen/GI: Negative for abdominal pain, nausea, vomiting, diarrhea, and constipation. 14:09 : Negative for injury, bleeding, discharge, and swelling, MS/Extremity: Negative for injury and deformity, Skin: Negative for injury, rash, and discoloration, Neuro: Negative for headache, weakness, numbness, tingling, and seizure. 14:09 Back: Positive for pain with movement, of the low back area. 14:09 All other systems are negative. Exam: 14:09 Constitutional: This is a well developed, well nourished patient who is awake, alert, pm1 and in no acute distress. Head/Face: Normocephalic, atraumatic. 14:09 Skin: Warm, dry with normal turgor. Normal color with no rashes, no lesions, and no evidence of cellulitis. MS/ Extremity: Pulses equal, no cyanosis. Neurovascular intact. Full, normal range of motion. 14:09 Cardiovascular: Exam negative for acute changes, Rate: normal, Rhythm: regular, Pulses: no pulse deficits are appreciated. 14:09 Respiratory: Exam negative for acute changes, respiratory distress, shortness of breath. 14:09 Back: pain, that is mild, of the low back area, vertebral tenderness, is not appreciated, muscle spasm, is appreciated in the right low back. 14:09 Neuro: Exam negative for acute changes, Orientation: is normal, Mentation: is normal, Motor: is normal, moves all fours, Sensation: is normal, no obvious gross deficits. Vital Signs: 14:03 BP 130 / 65; Pulse 68; Resp 16; Temp 97.6(T); Pulse Ox 100% ; Weight 108.86 kg; Height lm7 6 ft. (182.88 cm); Pain 10/10; 14:03 Body Mass Index 32.55 (108.86 kg, 182.88 cm) lm7 MDM: 14:19 Patient medically screened. pm1 15:21 ED course: Discussed radiology results with patient. Pending patient administration of pm1 pain medications. Based on results of the medications will determine prescriptions. 16:24 Data reviewed: vital signs. Data interpreted: Pulse oximetry: on room air is 100 %. pm1 Interpretation: normal. Counseling: I had a detailed discussion with the patient and/or guardian regarding: the historical points, exam findings, and any diagnostic results supporting the discharge/admit diagnosis, radiology results, the need for outpatient follow up, to return to the emergency department if symptoms worsen or persist or if there are any questions or concerns that arise at home. 09/20 14:08 Order name: Lumbar Spine (3 Views) XRAY; Complete Time: 14:48 pm1 Administered Medications: 15:00 Drug: [place] (HYDROcodone-acetaminophen) 5 mg-325 mg 1 tabs Route: PO; lm7 15:00 Drug: Lidoderm Patch 5 % (700 mg/patch) 1 patches Route: Topical; Site: affected area; lm7 Disposition Summary: 09/20/20 16:25 Discharge Ordered Location: Home pm1 Problem: new pm1 Symptoms: have improved pm1 Condition: Stable pm1 Diagnosis - Low back pain pm1 Followup: pm1 - With: Emergency Department - When: As needed - Reason: Worsening of condition Followup: pm1 - With: Private Physician - When: 2 - 3 days - Reason: Recheck today's complaints, Continuance of care, Re-evaluation by your physician Discharge Instructions: - Discharge Summary Sheet pm1 - Acute Back Pain, Adult pm1 - Back Injury Prevention, Hjrc-sk-Duvn pm1 Forms: - Medication Reconciliation Form pm1 - Thank You Letter pm1 - Antibiotic Education pm1 - Prescription Opioid Use pm1 Prescriptions: - Lidoderm 5 % Topical adhesive patch,medicated - apply 1 patch by TRANSDERMAL route once daily As needed On for 12 hours and off pm1 for 12 hours in a 24-hour period; 12 patch; Refills: 0, Product Selection Permitted - acetaminophen-codeine 300-15 mg Oral tablet - take 2 tablet by ORAL route every 6 hours As needed; 20 tablet; Refills: 0, pm1 Product Selection Permitted Addendum: 09/23/2020 07:07 Co-signature as Attending Physician, Robert Arteaga MD I agree with the assessment and k dr plan of care. Signatures: Dispatcher [employer] EDGA Robert Arteaga MD MD [facility] Kat Pinto [address], Jorge, INTERLOCKING INSTALLER INTERLOCKING INSTALLER pm1
--- NOTE | 2020-09-20 16:26 | ER ---
Nurse's Notes [facility] Name: Ely Coley Age: 75 yrs Sex: Male : 1945 Arrival Date: 09/20/2020 Time: 12:35 Bed Waiting Private MD: Diagnosis: Low back pain Presentation: 09/20 14:03 Chief complaint: Patient states: Pt reports "my back is out." Reports lifting 10-15 lbs lm7 1830 last night, now c/o severe lower back pain. Coronavirus screen: Client denies travel out of the [place] in the last 14 days. At this time, the client does not indicate any symptoms associated with coronavirus-19. Ebola Screen: Patient negative for fever greater than or equal to 101.5 degrees Fahrenheit, and additional compatible Ebola Virus Disease symptoms Patient denies exposure to infectious person. Patient denies travel to an Ebola-affected area in the 21 days before illness onset. Initial Sepsis Screen: Does the patient meet any 2 criteria? No. Patient's initial sepsis screen is negative. Does the patient have a suspected source of infection? No. Patient's initial sepsis screen is negative. Risk Assessment: Do you want to hurt yourself or someone else?. Risk Assessment: Do you want to hurt yourself or someone else? Patient reports no desire to harm self or others. Onset of symptoms was September 19, 2020 at 18:40. 14:03 Method Of Arrival: Ambulatory lm7 14:03 Acuity: MITCH 4 lm7 Triage Assessment: 14:08 Musculoskeletal: pain to lower right back with palp. lm7 Historical: - Allergies: 14:08 steroids; lm7 - Home Meds: 14:08 amiodarone 200 mg Oral tab 1 tab once daily [Active]; Eliquis 2.5 mg Oral tab 1 tab 2 lm7 times per day [Active]; glipizide 5 mg Oral tr24 1 tab once daily [Active]; Humalog Mix 75-25 100 unit/mL (75-25) Sub-Q susp use prn [Active]; Men's Multi-Vitamin Oral tab daily [Active]; PreserVision AREDS 7,160-113-100 ntjp-vq-bbll Oral tab twice a day [Active]; spironolactone 25 mg Oral tab 1 tab 2 times per day [Active]; Stool Softener Oral 2 times per day [Active]; - PMHx: 14:08 Atrial Fib; CVA; Diabetes - IDDM; Diabetes - NIDDM; Hypertension; Pacemaker; lm7 - Immunization history:: Client reports receiving the 1st dose of the Covid vaccine, September 08, 2020. Vital Signs: 14:03 BP 130 / 65; Pulse 68; Resp 16; Temp 97.6(T); Pulse Ox 100% ; Weight 108.86 kg; Height lm7 6 ft. (182.88 cm); Pain 10/10; 14:03 Body Mass Index 32.55 (108.86 kg, 182.88 cm) lm7 ED Course: 12:35 Patient arrived in ED. ds1 14:07 Jorge Cope NP is PHCP. pm1 14:07 Robert Arteaga MD is Attending Physician. pm1 14:08 Triage completed. lm7 14:37 Lumbar Spine (3 Views) XRAY In Process Unspecified. EDMS Administered Medications: 15:00 Drug: [place] (HYDROcodone-acetaminophen) 5 mg-325 mg 1 tabs Route: PO; lm7 15:00 Drug: Lidoderm Patch 5 % (700 mg/patch) 1 patches Route: Topical; Site: affected area; lm7 Outcome: 16:25 Discharge ordered by . pm1 16:50 Patient left the ED. kb Signatures: Dispatcher [employer] EDMS Caty Correa, Dottie Henderson ds1 Kat Pinto lm7 Jorge Cope NP [employer]PER[employer] pm1
[2020-09-20 16:53] VITALS: BP 130/65; TEMP 97.6; O2SAT 100
== END 2020-09-20 16:50 | disposition home or self-care (01) ==
LOC: ER 12:32
DX: M54.5 Low back pain (principal); I10 Essential (primary) hypertension; E11.9 Type 2 diabetes mellitus without complications; Z79.4 Long term (current) use of insulin; Z79.01 Long term (current) use of anticoagulants; Z88.8 Allergy status to other drugs, medicaments and biological substances; Z95.0 Presence of cardiac pacemaker
CPT/HCPCS: 72100; 99283

== ENCOUNTER 2021-05-27 11:54 | Inpatient (IN) | payer OTHER ==
--- OUTSIDE RECORDS SUMMARY | 2021-05-27 12:09 | XMS REPORT | Continuity of Care Document ---
:1945 Author Organization [facility] t Address [address] [place] [address] Care Team Providers Name Role Phone Emiliano Vleásquez MD Primary Care Physician Eduin WATTS Attending Clinician EDUIN Attending Clinician Unavailable ESTEBAN DUONG Attending Clinician Unavailable Esteban Duong DPM Attending Clinician ESTEBAN DUONG Attending Clinician Unavailable Esteban Duong DPM Attending Clinician Ponce Staley Attending Clinician Tj Chahal MD Attending Clinician Torie Saenz MD Attending Clinician Lyudmila Sellers MD Attending Clinician Bandar WATTS Attending Clinician Hossein Raphael MD Attending Clinician Eduin WATTS Attending Clinician Mary Rutherford Attending Clinician Unavailable DANNY Attending Clinician Unavailable EDUIN Admitting Clinician Unavailable TORIE SAENZ Admitting Clinician Unavailable DANNY Admitting Clinician Unavailable Payers Payer Name Policy Type Policy Number Effective Date Expiration Date Juanita HONG-MEDICARE - [id number] [facility] [employer] MEDICARE - [id number] RNPO PCP TOTALCARE SNP [id number] 2016 MEDICARE HMO-CIGNA 00:00:00 UNITED MEDICARE HMO [id number] 2020 00:00:00 [facility] [id number] 2016-02-09 O 00:00:00 Problems Condition Condition Condition Status Onset Resolution Last Treating Co mments Source Name Details Category Date Date Treatment Clinician Date Right foot Right foot Disease Active [facility] pain pain 8-27 [facility] 00:00: of 00 Medicin e Status Status Disease Active [facility] post post 625 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 00 Medici n great toe great toe e (HCCode) (HCCode) Post-opera Post-opera Disease Active [facility] tive state tive state 6-25 Co llege 00:00: of 00 Medicin e Encounter Encounter Disease Active [facility] for post for post 08-02 Colleg e surgical surgical 00:00: of wound wound 00 Medicin check check e PAD PAD Disease Active [facility] (periphera (periphera 08-02 Co llege l artery l artery 00:00: of disease) disease) 00 Medici n (HCCode) (HCCode) e Type 2 Type 2 Disease Active [facility] diabetes diabetes 25 Colleg e mellitus mellitus 00:00: of with with 00 Medicin diabetic diabetic e peripheral peripheral angiopathy angiopathy without without gangrene, gangrene, without without long-term long-term current current use of use of insulin insulin (HCCode) (HCCode) Right foot Right foot Disease Active [facility] Diabetes Diabetes Disease [facility] Hypertensi Hypertensi Disease Active 2016-[address] on on 04-02 [facility] CHF CHF Disease Active 2016-[address] [facility] (congestiv (congestiv - Yuliya kes - e heart e heart 00:00: Medical failure) failure) 00 Center Atrial Atrial Disease Active 2016-[address] [facility] [address] fibrillati fibrillati -23 Yuliya kes - on on 00:00: Medical 00 [place] 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- [facility] 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 2- Yuliya kes - 00:00: Medical 00 [place] HEIDI (acute HEIDI (acute Disease Active 2016-[address] kidney kidney 2- [facility] - injury) injury) 00:00: Medical 00 [place] Pneumonia Pneumonia Disease Active 2016-[address] [facility] [address] 04-01 [facility] 00 [place] PAROXYSMAL Diagnosis Active 2016-09-14 Memoria AFIB, 08-28 10:10:00 l BRADYCARDI 00:00: Pepe smith A PAROXYSMAL 00 AFIB, BRADYCARDI A Active 08/28/2016 [facility] CCL/DUAL Diagnosis Active 2016-08-31 M emoria PMAKER 08-28 15:00:00 l IMPLANT/BS CCL/DUAL 00:00: He rmann /DX: PMAKER 00 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 Active 08/28/2016 [facility] 362.56 Diagnosis Active 2014-06-04 Mem [facility]ria EPIRETINAL 02-14 10:13:00 l MEMBRANE 362.56 00:00: Pepe smith LEFT EYE EPIRETINAL 00 MEMBRANE LEFT EYE Active 02/14/2014 [facility] Syncope Problem Resolve 2016-09-15 Mem oria (disorder) d 00:18:[address] (disorder) Resolved Problem 09/15/2016 [facility] Bradycardi Problem Resolve 2016-09-15 Memoria a d 00:18:55 l (disorder) Pepe smith Bradycardi a (disorder) Resolved Problem 09/15/2016 [facility] Chest pain Problem Resolve 2016-09-15 Memoria (finding) d 00:18:[address] pain (finding) Resolved Problem 09/15/2016 [facility] Cerebrovas Problem Resolve 2016-09-15 Memoria cular d 00:18:[address] (disorder) Cerebrovas cular accident (disorder) Resolved Problem 09/15/2016 [facility] Dizziness Problem Resolve 2016-09-15 M emoria (finding) d 00:18:55 l Tino Dizziness (finding) Resolved Problem 09/15/2016 [facility] Edema Problem Resolve 2016-09-15 Niko reynold (finding) d 00:18:[address] (finding) Resolved Problem 09/15/2016 [facility] Allergies, Adverse Reactions, Alerts Allergy Allergy Status Severity Reaction(s) Onset Inactive Treating Comm ents Source Name Type Date Date Clinician Metformi Propensi Active [facility] n ty to 5-18 College adverse 00:00: of reaction 00 Medicin s to e drug Metformi Propensi Active [facility] 18 [facility] adverse 00:[facility] Medical reaction 00 Center s Metoprol Propensi Active [facility] ty to 5-18 [facility] adverse 00:00: Medical reaction 00 Center s METFORMI Allergy Active [facility] N 5-18 [facility] METOPROL Allergy Active [facility] OL -18 [facility] Center Metoprol Propensi Active Shortness Of 2017-02 [facility] ol ty to Breath 1-13 College adverse 00:00: of reaction 00 Medicin s to e drug NO KNOWN Allergy Active [facility] Family History Family Member Diagnosis Comments Start Date Stop Date Source Natural brother Cancer [facility] Natural brother Diabetes [facility] Natural brother Hypertension [facility] Natural mother Heart disease [facility] Natural sister Hypertension [facility] Social History Social Habit Start Date Stop Date Quantity Comments Source Alcohol intake 2020-11-27 2020-11-27 Current [facility] Col lege 00:00:00 00:00:00 non-drinker of of Medicin e alcohol (finding) Tobacco Comment 2020-06-26 2020-06-26 quit 30 yrs ago [facility] - 00:00:00 00:00:00 [facility] Tobacco use and 2016-12-14 2016-12-14 Never used [facility] Co llege exposure 00:00:00 00:00:00 of Medicine Social History 2014-03-05 2014-03-05 [facility] aldo 17:12:04 17:12:04 Sex Assigned At 1945-06-131943-06-13 [facility] Co llege 00:00:00 00:00:00 of Medicine Smoking Status Start Date Stop Date Source Former smoker 2020-07-02 00:00:00 2020-07-02 00:00:00 [facility] Never smoker [facility] o f Medicine Medications Ordered Filled Start Stop Current Ordering Indication Dosage Frequency Signature Comments Components Source Medication Medication Date Date Medication? Clinician (SIG) Name Name glipiZIDE 2020-02 Yes 10mg Take 10 mg [facility] (GLUCOTROL) 0-20 by mouth [facility] 10 MG 13:27: two times of tablet 32 daily. Medicin e Apixaban 2020-02 Yes Take by [facility] (ELIQUIS) 0-20 mouth two Colle ge 2.5 MG TABS 13:27: times of 32 daily. Medicin e amiodarone 2020-02 Yes 200mg Take 200 [facility] (PACERONE) 0-20 mg by [facility] 200 MG 13:27: mouth of tablet 32 daily. Medicin e SPIRONOLACT 2020-02 Yes Take by [facility] ONE OR 0-20 mouth. [place] 13:27: of 32 Medicin e glipiZIDE Yes 10mg Take 10 mg [facility] (GLUCOTROL) 9-22 by mouth [facility] 10 MG 09:03: two times of tablet 58 daily. Medicin e Apixaban Yes Take by [facility] (ELIQUIS) 9-22 mouth two Colle ge 2.5 MG TABS 09:03: times of 58 daily. Medicin e amiodarone 0 Yes 200mg Take 200 [facility] (PACERONE) 9-22 mg by [place] 200 MG 09:03: mouth of tablet 58 daily. Medicin e SPIRONOLACT 0 Yes Take by [facility] ONE OR 9-22 mouth. College 09:03: of 58 Medicin e glipiZIDE 2020-0 Yes 10mg Take 10 mg [facility] (GLUCOTROL) 9-22 by mouth [facility] 10 MG 09:03: two times of tablet 58 daily. Medicin e Apixaban Yes Take by [facility] (ELIQUIS) 9-22 mouth two Colle ge 2.5 MG TABS 09:03: times of 58 daily. Medicin e amiodarone 2020-0 Yes 200mg Take 200 [facility] (PACERONE) 9-22 mg by [place] 200 MG 09:03: mouth of tablet 58 daily. Medicin e SPIRONOLACT 2020-0 Yes Take by [facility] ONE OR 9-22 mouth. [place] 09:03: of 58 Medicin e glipiZIDE 2020-0 Yes 10mg Take 10 mg [facility] (GLUCOTROL) 9-22 by mouth [facility] 10 MG 09:03: two times of tablet 58 daily. Medicin e Apixaban 2020-0 Yes Take by [facility] (ELIQUIS) 9-22 mouth two Colle ge 2.5 MG TABS 09:03: times of 58 daily. Medicin e amiodarone 2020-0 Yes 200mg Take 200 [facility] (PACERONE) 9-22 mg by [place] 200 MG 09:03: mouth of tablet 58 daily. Medicin e SPIRONOLACT 2020-0 Yes Take by [facility] ONE OR 9-22 mouth. [place] 09:03: of 58 Medicin e glipiZIDE 2020-0 Yes 10mg Take 10 mg [facility] (GLUCOTROL) 9-22 by mouth [facility] 10 MG 09:03: two times of tablet 58 daily. Medicin e Apixaban 2020-0 Yes Take by [facility] (ELIQUIS) 9-22 mouth two Colle ge 2.5 MG TABS 09:03: times of 58 daily. Medicin e amiodarone 2020-0 Yes 200mg Take 200 [facility] (PACERONE) 9-22 mg by [place] 200 MG 09:03: mouth of tablet 58 daily. Medicin e SPIRONOLACT 2020-0 Yes Take by [facility] ONE OR 9-22 mouth. [place] 09:03: of 58 Medicin e Dabigatran 2020-0 Yes Take by [place] [facility] Etexilate 8-26 mouth. [place] Mesylate 13:36: of (PRADAXA) 34 Medicin 150 MG CAPS e glipiZIDE 2020-0 Yes 10mg Take 10 mg [facility] (GLUCOTROL) 8-26 by mouth [facility] 10 MG 13:36: two times of tablet 34 daily. Medicin e valsartan 2021-0 Yes 320mg Take 320 [place] [facility] (DIOVAN) 8-26 mg by [place] 320 MG 13:36: mouth of tablet 34 daily. Medicin e furosemide Yes 40mg Take 40 mg [facility] (LASIX) 40 8- by mouth Colle ge MG tablet 13:36: daily. of 34 Medicin e Apixaban Yes Take by [facility] (ELIQUIS) 8 mouth two Colle ge 2.5 MG TABS 13:36: times of 34 daily. Medicin e amiodarone 0 Yes 200mg Take 200 [facility] (PACERONE) 8- mg by [place] 200 MG 13:36: mouth of tablet 34 daily. Medicin e SPIRONOLACT Yes Take by [facility] ONE OR 10-03 mouth. College 13:36: of 34 Medicin e collagenase Yes [id number] Apply to [facility] 250 UNIT/GM 10-03 [facility] ointment 00:00: wound on of 00 great big Medicin toe amp e site Wound measuremen ts 1.0 cm X 1.0 Cm gabapentin 2020-0 Yes [id number] 100mg Take 1 [facility] (NEURONTIN) 8- 9107 capsule by Co llege 100 MG 00:00: mouth 3 of capsule 00 times Medicin daily. e doxycycline 0 Yes [id number] 100mg Take 1 [facility] (ADOXA) 100 10-03 Tablet by Col lege MG tablet 00:00: mouth two of 00 times Medicin daily. e collagenase 0 Yes [id number] Apply to [facility] 250 UNIT/GM 10-03 [facility] ointment 00:00: wound on of 00 great big Medicin toe amp e site Wound measuremen ts 1.0 cm X 1.0 Cm collagenase 2020-0 Yes [id number] Apply to [facility] 250 UNIT/GM 826 [facility] ointment 00:00: wound on of 00 great big Medicin toe amp e site Wound measuremen ts 1.0 cm X 1.0 Cm gabapentin 0 Yes [id number] 100mg Take 1 [facility] (NEURONTIN) 8- 9107 capsule by Co llege 100 MG 00:00: mouth 3 of capsule 00 times Medicin daily. e doxycycline 2020-0 Yes [id number] 100mg Take 1 [facility] (ADOXA) 100 8-26 Tablet by Col lege MG tablet 00:00: mouth two of 00 times Medicin daily. e gabapentin 2020-0 Yes [id number] 100mg Take 1 [facility] (NEURONTIN) 8-26 9107 capsule by Co llege 100 MG 00:00: mouth 3 of capsule 00 times Medicin daily. e collagenase 2020-0 Yes [id number] Apply to [facility] 250 UNIT/GM 8-26 [facility] ointment 00:00: wound on of 00 great big Medicin toe amp e site Wound measuremen ts 1.0 cm X 1.0 Cm doxycycline 2020-0 Yes [id number] 100mg Take 1 [facility] (ADOXA) 100 8-26 Tablet by Col lege MG tablet 00:00: mouth two of 00 times Medicin daily. e gabapentin 2020-0 Yes [id number] 100mg Take 1 [facility] (NEURONTIN) 8-26 9107 capsule by Co llege 100 MG 00:00: mouth 3 of capsule 00 times Medicin daily. e doxycycline 2020-0 Yes [id number] 100mg Take 1 [facility] (ADOXA) 100 8-26 Tablet by Col lege MG tablet 00:00: mouth two of 00 times Medicin daily. e collagenase 2020-0 Yes [id number] Apply to [facility] 250 UNIT/GM 8-26 [facility] ointment 00:00: wound on of 00 great big Medicin toe amp e site Wound measuremen ts 1.0 cm X 1.0 Cm gabapentin 2020-0 Yes [id number] 100mg Take 1 [facility] (NEURONTIN) 8-26 9107 capsule by Co llege 100 MG 00:00: mouth 3 of capsule 00 times Medicin daily. e doxycycline 2020-0 Yes [id number] 100mg Take 1 [facility] (ADOXA) 100 8-26 Tablet by Col lege MG tablet 00:00: mouth two of 00 times Medicin daily. e collagenase 2020-0 Yes [id number] Apply to [facility] 250 UNIT/GM 8-26 [facility] ointment 00:00: wound on of 00 great big Medicin toe amp e site Wound measuremen ts 1.0 cm X 1.0 Cm gabapentin 2020-0 Yes [id number] 100mg Take 1 [facility] (NEURONTIN) 8 9107 capsule by Co llege 100 MG 00:00: mouth 3 of capsule 00 times Medicin daily. e doxycycline Yes [id number] 100mg Take 1 [facility] (ADOXA) 100 8- Tablet by Col lege MG tablet 00:00: mouth two of 00 times Medicin daily. e Dabigatran Yes Take by [place] [facility] Etexilate 7-28 mouth. [place] Mesylate 10:40: of (PRADAXA) 39 Medicin 150 MG CAPS e glipiZIDE Yes 10mg Take 10 mg [facility] (GLUCOTROL) 7-28 by mouth [facility] 10 MG 10:40: two times of tablet 39 daily. Medicin e valsartan Yes 320mg Take 320 [place] [facility] (DIOVAN) 7-28 mg by [place] 320 MG 10:40: mouth of tablet 39 daily. Medicin e furosemide Yes 40mg Take 40 mg [facility] (LASIX) 40 7-28 by mouth Colle ge MG tablet 10:40: daily. of 39 Medicin e Apixaban Yes Take by [facility] (ELIQUIS) 7- mouth two Colle ge 2.5 MG TABS 10:40: times of 39 daily. Medicin e amiodarone Yes 200mg Take 200 [facility] (PACERONE) 7-28 mg by [place] 200 MG 10:40: mouth of tablet 39 daily. Medicin e SPIRONOLACT Yes Take by [facility] ONE OR 7-28 mouth. [place] 10:40: of 39 Medicin e Dabigatran Yes Take by [place] Etexilate 7-28 mouth. [place] Mesylate 10:40: of (PRADAXA) 39 Medicin 150 MG CAPS e glipiZIDE Yes 10mg Take 10 mg [facility] (GLUCOTROL) 7-28 by mouth Stew ege 10 MG 10:40: two times of tablet 39 daily. Medicin e valsartan Yes 320mg Take 320 [place] [facility] (DIOVAN) 7-28 mg by [place] 320 MG 10:40: mouth of tablet 39 daily. Medicin e furosemide 2021-0 Yes 40mg Take 40 mg [facility] (LASIX) 40 7-28 by mouth Colle ge MG tablet 10:40: daily. of 39 Medicin e Apixaban 0 Yes Take by [facility] (ELIQUIS) 7- mouth two Colle ge 2.5 MG TABS 10:40: times of 39 daily. Medicin e amiodarone 0 Yes 200mg Take 200 [facility] (PACERONE) 7-28 mg by [place] 200 MG 10:40: mouth of tablet 39 daily. Medicin e SPIRONOLACT 0 Yes Take by [facility] ONE OR - mouth. [place] 10:40: of 39 Medicin e Dabigatran Yes Take by [place] Etexilate 7-14 mouth. [place] Mesylate 10:25: of (PRADAXA) 59 Medicin 150 MG CAPS e glipiZIDE 0 Yes 10mg Take 10 mg [facility] (GLUCOTROL) 7-14 by mouth Stew ege 10 MG 10:25: two times of tablet 59 daily. Medicin e valsartan 0 Yes 320mg Take 320 [place] [facility] (DIOVAN) 7-14 mg by [facility] 320 MG 10:25: mouth of tablet 59 daily. Medicin e furosemide 0 Yes 40mg Take 40 mg [facility] (LASIX) 40 7-14 by mouth Colle ge MG tablet 10:25: daily. of 59 Medicin e Apixaban 0 Yes Take by [facility] (ELIQUIS) 7- mouth two Colle ge 2.5 MG TABS 10:25: times of 59 daily. Medicin e amiodarone 0 Yes 200mg Take 200 [facility] (PACERONE) 7-14 mg by [place] 200 MG 10:25: mouth of tablet 59 daily. Medicin e SPIRONOLACT 0 Yes Take by [facility] ONE OR - mouth. [place] 10:25: of 59 Medicin e doxycycline 2020-0 Yes [id number] 100mg Take 1 [facility] (ADOXA) 100 08-21 [id number] Tablet by ollege MG tablet 00:00: mouth two of 00 times Medicin daily. e mupirocin 0 Yes [id number] Apply to [facility] (BACTROBAN) 08-21 [id number] wound site College 2 % 00:00: daily of ointment 00 Medicin e doxycycline 2020-0 Yes [id number] 100mg Take 1 [facility] (ADOXA) 100 08-21 [id number] Tablet by [facility] ollege MG tablet 00:00: mouth two of 00 times Medicin daily. e mupirocin 202-0 Yes [id number] Apply to [facility] (BACTROBAN) 08-21 [id number] wound site College 2 % 00:00: daily of ointment 00 Medicin e mupirocin 202-0 Yes [id number] Apply to [facility] (BACTROBAN) 08-21 [id number] wound site College 2 % 00:00: daily of ointment 00 Medicin e mupirocin 2020-0 Yes [id number] Apply to [facility] (BACTROBAN) 08-21 [id number] wound site College 2 % 00:00: daily of ointment 00 Medicin e mupirocin 2020-0 Yes [id number] Apply to [facility] (BACTROBAN) 08-21 [id number] wound site College 2 % 00:00: daily of ointment 00 Medicin e mupirocin 202-0 Yes [id number] Apply to [facility] (BACTROBAN) 08-21 [id number] wound site College 2 % 00:00: daily of ointment 00 Medicin e mupirocin 2020-0 Yes [id number] Apply to [facility] (BACTROBAN) 08-21 [id number] wound site College 2 % 00:00: daily of ointment 00 Medicin e mupirocin 2020-0 Yes [id number] Apply to [facility] (BACTROBAN) 08-21 [id number] wound site College 2 % 00:00: daily of ointment 00 Medicin e doxycycline 202-0 202- No [id number] 100mg Take 1 [facility] (ADOXA) 100 08-21 0826 [id number] Tablet by [facility] MG tablet 00:00: 00:00 mouth two of 00 :00 times Medicin daily. e Dabigatran 2020-0 Yes Take by [facility] Etexilate 6-30 mouth. [facility] Mesylate 09:35: of (PRADAXA) 59 Medicin 150 MG CAPS e glipiZIDE 0 Yes 10mg Take 10 mg [facility] (GLUCOTROL) 6-30 by mouth [facility] 10 MG 09:35: two times of tablet 59 daily. Medicin e valsartan 0 Yes 320mg Take 320 [place] [facility] (DIOVAN) 6-30 mg by [place] 320 MG 09:35: mouth of tablet 59 daily. Medicin e furosemide 0 Yes 40mg Take 40 mg [facility] (LASIX) 40 6-30 by mouth Colle ge MG tablet 09:35: daily. of 59 Medicin e Apixaban 0 Yes Take by [facility] (ELIQUIS) 6-30 mouth two Colle ge 2.5 MG TABS 09:35: times of 59 daily. Medicin e amiodarone 0 Yes 200mg Take 200 [facility] (PACERONE) 6-30 mg by [place] 200 MG 09:35: mouth of tablet 59 daily. Medicin e SPIRONOLACT 0 Yes Take by [facility] ONE OR 6-30 mouth. [place] 09:35: of 59 Medicin e Dabigatran 0 Yes Take by [place] Etexilate 6-17 mouth. [place] Mesylate 10:35: of (PRADAXA) 15 Medicin 150 MG CAPS e glipiZIDE 0 Yes 10mg Take 10 mg [facility] (GLUCOTROL) 6-17 by mouth Stew [facility] 10 MG 10:35: two times of tablet 15 daily. Medicin e valsartan 0 Yes 320mg Take 320 [place] (DIOVAN) 6-17 mg by [place] 320 MG 10:35: mouth of tablet 15 daily. Medicin e furosemide 0 Yes 40mg Take 40 mg [facility] (LASIX) 40 6-17 by mouth Colle ge MG tablet 10:35: daily. of 15 Medicin e Apixaban 0 Yes Take by [facility] (ELIQUIS) 6-17 mouth two Colle ge 2.5 MG TABS 10:35: times of 15 daily. Medicin e amiodarone 0 Yes 200mg Take 200 [facility] (PACERONE) 6-17 mg by [place] 200 MG 10:35: mouth of tablet 15 daily. Medicin e SPIRONOLACT 0 Yes Take by [facility] ONE OR 6-17 mouth. [place] 10:35: of 15 Medicin e Dabigatran Yes Take by [place] Etexilate 6-17 mouth. [place] Mesylate 10:35: of (PRADAXA) 15 Medicin 150 MG CAPS e glipiZIDE Yes 10mg Take 10 mg [facility] (GLUCOTROL) 6-17 by mouth [facility] 10 MG 10:35: two times of tablet 15 daily. Medicin e valsartan Yes 320mg Take 320 [place] (DIOVAN) 6-17 mg by [place] 320 MG 10:35: mouth of tablet 15 daily. Medicin e furosemide Yes 40mg Take 40 mg [facility] (LASIX) 40 6-17 by mouth Colle ge MG tablet 10:35: daily. of 15 Medicin e Apixaban Yes Take by [facility] (ELIQUIS) 6-17 mouth two Colle ge 2.5 MG TABS 10:35: times of 15 daily. Medicin e amiodarone Yes 200mg Take 200 [facility] (PACERONE) 6-17 mg by [place] 200 MG 10:35: mouth of tablet 15 daily. Medicin e SPIRONOLACT Yes Take by [facility] ONE OR 6-17 mouth. [place] 10:35: of 15 Medicin e metformin 2020- No 850mg Take 850 [facility] (GLUCOPHAGE 07-17 06-09 mg by Abhay cummings ) 850 MG 09:37: 00:00 mouth 2 of tablet 14 :00 times Medicin daily e (with meals). metformin 2020- No 500mg Take 500 [facility] (GLUCOPHAGE - 06-09 mg by Abhay cummings ) 500 MG 09:37: 00:00 mouth 2 of tablet 11 :00 times Medicin daily e (with meals). amoxicillin Yes 1{tbl} Take 1 [facility] -clavulanat 6- Tablet by Col lege e 00:00: mouth two of (AUGMENTIN) 00 times Medicin 500-125 MG daily. e per tablet gabapentin Yes 100mg Take 1 [facility] (NEURONTIN) 6- capsule by Co llege 100 MG 00:00: mouth 3 of capsule 00 times Medicin daily. e mupirocin Yes Apply to [facility] (BACTROBAN) 07-17 affected [facility] 2 % 00:00: area daily of ointment 00 Medicin e gabapentin Yes 100mg Take 1 [facility] (NEURONTIN) 07-17 capsule by Co llege 100 MG 00:00: mouth 3 of capsule 00 times Medicin daily. e gabapentin 0 Yes 100mg Take 1 [facility] (NEURONTIN) 07-17 capsule by Co llege 100 MG 00:00: mouth 3 of capsule 00 times Medicin daily. e gabapentin 0 Yes 100mg Take 1 [facility] (NEURONTIN) 07-17 capsule by Co llege 100 MG 00:00: mouth 3 of capsule 00 times Medicin daily. e gabapentin 0 Yes 100mg Take 1 [facility] (NEURONTIN) 07-17 capsule by Co llege 100 MG 00:00: mouth 3 of capsule 00 times Medicin daily. e amoxicillin Yes 1{tbl} Take 1 [facility] -clavulanat 07-17 Tablet by Col lege e 00:00: mouth two of (AUGMENTIN) 00 times Medicin 500-125 MG daily. e per tablet gabapentin Yes 100mg Take 1 [facility] (NEURONTIN) 07-17 capsule by Co llege 100 MG 00:00: mouth 3 of capsule 00 times Medicin daily. e mupirocin Yes Apply to [facility] (BACTROBAN) 07-17 affected Stew [facility] 2 % 00:00: area daily of ointment 00 Medicin e gabapentin 2020- No 100mg Take 1 [place] [facility] (NEURONTIN) 07-17 capsule by C ollege 100 MG 00:00: 00:00 mouth 3 of capsule 00 :00 times Medicin daily. e amoxicillin 2020-0 202- No 1{tbl} Take 1 [facility] -clavulanat 07-17 Tablet by Co llege e 00:00: 00:00 mouth two of (AUGMENTIN) 00 :00 times Medicin 500-125 MG daily. e per tablet mupirocin 2020-0 2020- No Apply to [place] [facility] (BACTROBAN) 07-17 affected Col lege 2 % 00:00: 00:00 area daily of ointment 00 :00 Medicin e glipiZIDE Yes 5mg QD Take [address] [facility] (GLUCOTROL) 5-28 by mouth [facility] - 10 MG 16:36: daily . Medical tablet 41 Center amiodarone Yes 200mg QD Take [address] (PACERONE) 5-28 mg by [facility] - 200 MG 16:36: mouth Medical tablet 41 daily. Center spironolact Yes 25mg Q.5D Take 25 mg [...] Take [address] n capsule -28 le} capsule by Damon s - 16:36: mouth Medical 41 daily. Center HYDROcodone Yes 1{tbl} Take [address] -acetaminop 5-28 tablet by [facility] [place] (NORCO 00:00: mouth Medica l 5-325) 00 every 6 Center 5-325 mg (six) per tablet hours as needed for Pain. Max Daily Amount: 4 tablets senna-docus 2020- No 1{tbl} Take [address] ate -05 08-27 tablet by Yuli Whitehead (SENOKOT S) 00:00: 23:59 mouth Medi park 8.6-50 mg 00 :00 every Center per tablet night as needed for Constipati on for up to 30 days. amoxicillin 2020- No 1{tbl} Take [address] -clavulanat -05 08-04 tablet by Yuliya henderson 00:00: 23:59 mouth Medical (AUGMENTIN) 00 :00 every 12 Cent er 875-125 mg (twelve) per tablet hours for 7 days. doxycycline 2020- No 100mg Take [address] (MONODOX) -05 08-04 capsule [facility] - 100 MG 00:00: 23:59 (100 mg Medical capsule 00 :00 total) by Center mouth every 12 (twelve) hours for 7 days. vancomycin No 1250mg Inject [facility] (VANCOCIN) 06-18 1,250 mg Luke [facility] - injection 00:00: 00:00 intravenou M edical 1000 mg 00 :00 sly . Center vial Eliquis 2.5 Yes 2.5mg Q.5D Take 2.[address] MG tablet 5-09 mg by [facility] - 00:00: mouth 2 Medical 00 (two) Center times daily . gabapentin Yes 100mg [id number] Take [address] [facility] (NEURONTIN) - [id number] mg by L ukes - 100 MG 00:00: 3D mouth [...] 10mg Take 1 [facility] (GLUCOTROL) 02-08 tablet (10 L ukes - 10 MG 00:00: 00:00 mg total) Medica l tablet 00 :00 by mouth 2 Center (two) times daily before meals. Diltiazem No 60 mg, Memori a 09-13 Route: PO, l 14:00: Drug form: [facility] 00 TAB, Daily, Dosing Weight 116.364, kg, [...] Memori a 09-12 (Same As: l 04:00: AncefTino Kefzol) MEDICATION WASTE Product Size: 1000 mg Product Wasted: _0_ mg Calcium No Notes: Memoria Gluconate 09-12 WASTE: F/P l 03:33: - Sink; E - [facility] Magnesium No Notes: Memori a Oxide 09-12 (Same as: l 03:33: Mag-Ox 400) Magnesium oxide 528xc=275r g elemental magnesium Dose=____m g magnesium oxide (___mg elemental magnesium) Magnesium No Notes: Memori a Sulfate 8-05 WASTE: F/P l 03:33: - Sink; E [facility] - [facility] sodium No 15 mmol, 5 Memor ia phosphate 8-05 mL, Route: l 03:33: IVPB, PRN, 00 Dosing Weight 116.364, kg, PRN Abnormal Lab Result, For NON-ICU Patients Only., Start date: 09/11/16 22:33:00 CDT, Duration: 30 day, Stop date: 10/11/16 22:32:00 CDT Potassium No Notes: Memori a Chloride 8-05 (Same as: l 03:33: KCL) 00 Infuse over 2 hours. potassium No [...] WASTE: F/P l 03:22: - Sink; [facility] - [facility] Magnesium No Notes: [...] 60 l mg oral 22:15: tab, [address] [facility] tablet 00 Refill(s) metoprolol No Notes: Memor [...] tab, PO, l tablet 16:33: Daily, # [facility] 00 90 tab, 0 Refill(s) Glipizide Yes 10 mg = 1 Mem oria 10 MG Oral 09-11 tab, PO, l Tablet 16:33: BID-Before Odalys [...] tab, PO, l tablet 17:21: Daily, [address] [facility] 00 Refill(s) glyBURIDE 5 Yes 10 mg = 2 M emoria mg oral 03-05 tab, PO, l tablet 17:21: BID, 0 Tino 00 Refill(s) Aspirin Low Yes PO, Daily, Memoria Dose 81 mg -26 0 l oral tablet 17:21: Refill(s) H ermann Hydrochloro Yes 1 tab, PO, Memoria thiazide 50 - Daily, # l MG / 17:21: 30 tab, [address] [facility] Triamterene 00 Refill(s) 75 MG Oral Tablet Vital Signs Vital Name Observation Time Observation Value Comments Source Systolic blood 2020-11-27 18:29:00 146 mm[Hg] [facility] pressure Medicine Diastolic blood 2020-11-27 18:29:00 79 mm[Hg] [facility] Medicine Heart rate 2020-11-27 18:29:00 57 /min [facility] Body height 2020-11-27 18:29:00 182.9 cm [facility] Body weight 2020-11-27 18:29:00 115.214 kg [facility] BMI 2020-11-27 18:29:00 34.45 kg/m2 [facility] HEIGHT 2020-11-11 07:48:00 182.9 cm WEIGHT 2020-11-11 07:48:00 114.306 kg HEIGHT 2020-11-11 07:48:00 182.9 cm WEIGHT 2020-11-11 07:48:00 114.306 kg HEIGHT 2020-11-07 10:38:00 182.9 cm WEIGHT 2020-11-07 10:38:00 115.667 kg HEIGHT 2020-11-07 10:38:00 182.9 cm WEIGHT 2020-11-07 10:38:00 115.667 kg Systolic blood 2020-10-30 14:03:00 157 mm[Hg] [facility] pressure Medicine Diastolic blood 2020-10-30 14:03:00 85 mm[Hg] [facility] Medicine Heart rate 2020-10-30 14:03:00 73 /min [facility] Body height 2020-10-30 14:03:00 182.9 cm [facility] Body weight 2020-10-30 14:03:00 115.214 kg [facility] BMI 2020-10-30 14:03:00 34.45 kg/m2 [facility] Systolic blood 2020-10-16 16:59:00 115 mm[Hg] [facility] pressure Medicine Diastolic blood 2020-10-16 16:59:00 63 mm[Hg] [facility] Medicine Heart rate 2020-10-16 16:59:00 63 /min [facility] Body height 2020-10-16 16:59:00 182.9 cm [facility] Body weight 2020-10-16 16:59:00 108.863 kg [facility] BMI 2020-10-16 16:59:00 32.55 kg/m2 [facility] Systolic blood 2020-10-03 18:35:00 118 mm[Hg] [facility] pressure Medicine Diastolic blood 2020-10-03 18:35:00 67 mm[Hg] [facility] Medicine Heart rate 2020-10-03 18:35:00 70 /min [facility] Body height 2020-10-03 18:35:00 182.9 cm [facility] Body weight 2020-10-03 18:35:00 108.863 kg [facility] BMI 2020-10-03 18:35:00 32.55 kg/m2 [facility] Body height 2020-09-04 15:40:00 182.9 cm [facility] Body weight 2020-09-04 15:40:00 108.863 kg [facility] BMI 2020-09-04 15:40:00 32.55 kg/m2 [facility] Systolic blood 2020-08-21 15:25:00 137 mm[Hg] [facility] pressure Medicine Diastolic blood 2020-08-21 15:25:00 69 mm[Hg] [employer] [facility] pressure Medicine Heart rate 2020-08-21 15:25:00 75 /min [facility] Body height 2020-08-21 15:25:00 182.9 cm [facility] Body weight 2020-08-21 15:25:00 108.863 kg [facility] BMI 2020-08-21 15:25:00 32.55 kg/m2 [facility] Systolic blood 2020-08-21 15:25:00 137 mm[Hg] [facility] pressure Medicine Diastolic blood 2020-08-21 15:25:00 69 mm[Hg] [facility] of pressure Medicine Heart rate 2020-08-21 15:25:00 75 /min [facility] Body height 2020-08-21 15:25:00 182.9 cm [facility] Body weight 2020-08-21 15:25:00 108.863 kg [facility] BMI 2020-08-21 15:25:00 32.55 kg/m2 [facility] Systolic blood 2020-07-25 15:35:00 121 mm[Hg] [facility] pressure Medicine Diastolic blood 2020-07-25 15:35:00 74 mm[Hg] [facility] of pressure Medicine Heart rate 2020-07-25 15:35:00 81 /min [facility] Body height 2020-07-25 15:35:00 182.9 cm [facility] Body weight 2020-07-25 15:35:00 108.863 kg [facility] BMI 2020-07-25 15:35:00 32.55 kg/m2 [facility] Systolic blood 2020-07-25 15:35:00 121 mm[Hg] [facility] pressure Medicine Diastolic blood 2020-07-25 15:35:00 74 mm[Hg] [facility] of pressure Medicine Heart rate 2020-07-25 15:35:00 81 /min [facility] Body height 2020-07-25 15:35:00 182.9 cm [facility] Body weight 2020-07-25 15:35:00 108.863 kg [facility] BMI 2020-07-25 15:35:00 32.55 kg/m2 [facility] Systolic blood 2020-07-17 14:34:00 121 mm[Hg] [facility] Medicine Diastolic blood 2020-07-17 14:34:00 63 mm[Hg] [facility] Medicine Heart rate 2020-07-17 14:34:00 70 /min [facility] Body height 2020-07-17 14:34:00 182.9 cm [facility] Body weight 2020-07-17 14:34:00 108.863 kg [facility] BMI 2020-07-17 14:34:00 32.55 kg/m2 [facility] ol[facility] of Medicine Systolic blood 2020-07-17 14:34:00 121 mm[Hg] [facility] Medicine Diastolic blood 2020-07-17 14:34:00 63 mm[Hg] [facility] Medicine Heart rate 2020-07-17 14:34:00 70 /min [facility] Body height 2020-07-17 14:34:00 182.9 cm [facility] Body weight 2020-07-17 14:34:00 108.863 kg [facility] BMI 2020-07-17 14:34:00 32.55 kg/m2 [facility] HEIGHT 2020-06-26 09:00:00 182.9 cm WEIGHT 2020-06-26 09:00:00 110.088 kg HEIGHT 2020-06-25 19:57:00 188 cm WEIGHT 2020-06-25 19:57:00 99.791 kg HEIGHT 2020-06-26 09:00:00 182.9 cm WEIGHT 2020-06-26 09:00:00 110.088 kg HEIGHT 2020-06-25 19:57:00 188 cm WEIGHT 2020-06-25 19:57:00 99.791 kg Systolic blood 2020-07-05 10:59:00 113 mm[Hg] [facility] Diastolic blood 2020-07-05 10:59:00 51 mm[Hg] [facility] Heart rate 2020-07-05 10:59:00 80 /min [facility] Body temperature 2020-07-05 10:59:00 36.17 Madeline [facility] Respiratory rate 2020-07-05 10:59:00 17 /min [facility] Oxygen saturation in 2020-07-05 10:59:00 97 /min [facility] - Arterial blood by Medical Ce nter Pulse oximetry Body height 2020-06-26 09:00:[address] [facility] Body weight 2020-06-26 09:00:[address] [facility] BMI 2020-06-26 09:00:00 32.92 kg/m2 [facility] Temperature Oral (F) 2016-09-12 20:06:[address] [facility] Respitory Rate 2016-09-12 19:00:[address] [facility] Systolic (mm Hg) 2016-09-12 19:00:[address] [facility] Diastolic (mm Hg) 2016-09-12 19:00:[address] [facility] Respitory Rate 2016-09-12 18:00:00 Memori al Tino Systolic (mm Hg) 2016-09-12 18:00:[address] [facility] Diastolic (mm Hg) 2016-09-12 18:00:00 Mem orial Tino Respitory Rate 2016-09-12 17:00:00 Memori al Tino Systolic (mm Hg) 2016-09-12 17:00:[address] [facility] Diastolic (mm Hg) 2016-09-12 17:00:[address] [facility] Temperature Oral (F) 2016-09-12 12:51:00 97.[address] [facility] Temperature Oral (F) 2016-09-12 10:38:00 97.[address] [facility] BMI Calculated 2016-09-11 16:02:[address] [facility] Weight 2016-09-11 16:02:00 [facility] Height 2016-09-11 16:02:00 182.88 cm [facility] Systolic (mm Hg) 2014-03-06 20:30:00 Niko rial Tino Diastolic (mm Hg) 2014-03-06 20:30:[address] [facility] Respitory Rate 2014-03-06 20:30:[address] [facility] Diastolic (mm Hg) 2014-03-06 20:15:[address] [facility] Systolic (mm Hg) 2014-03-06 20:15:[address] [facility] Respitory Rate 2014-03-06 20:15:[address] [facility] Diastolic (mm Hg) 2014-03-06 20:02:00 Mem orial Tino Systolic (mm Hg) 2014-03-06 20:02:00 Niko rial [facility] Respitory Rate 2014-03-06 20:02:00 Memori al Tino Heart Rate 2014-03-06 17:15:00 [facility] Heart Rate 2014-03-05 [facility]:00 [facility] Calculated 2014-03-05 16:24:00 [facility] Weight 2014-03-05 16:24:00 [facility] Height 2014-03-05 16:24:00 180.34 cm [facility] Procedures Procedure Date / Time Performed Performing Clinician Sour e XR FOOT 3 VIEWS RIGHT 2020-09-04 12:18:00 Aleksandr Duong [facility] POCT-GLUCOSE METER 2020-07-05 11:02:00 Bandar [facility] POCT-GLUCOSE METER 2020-07-05 07:52:00 Bandar [facility] CBC W/PLT COUNT & AUTO 2020-07-05 04:20:00 OMID Portillo - DIFFERENTIAL [facility] BASIC METABOLIC PANEL 2020-07-05 04:20:00 OMID Portillo [facility] - (7) [facility] (CELLAVISION MANUAL 2020-07-05 04:20:00 OMID Portillo ukes - DIFF) [facility] POCT-GLUCOSE METER 2020-07-04 21:24[facility] 2020-07-04 17:38:00 [facility] W/[facility]T COUNT & AUTO 2020-07-04 15:02:00 Bandar [facility] S [facility] - DIFFERENTIAL [facility] BASIC METABOLIC PANEL 2020-07-04 15:02:00 Bandar [facility] (7[facility] (CELLAVISION MANUAL 2020-07-04 15:02:00 [facility] ukes - [facility] APTT 2020-07-04 12:11:[address] [facility] POCT-GLUCOSE METER 2020-07-04 12:09[facility] 2020-07-04 07:25:00 [facility] APTT 2020-07-04 04:37:[address] [facility] APTT 2020-07-03 23:27:00 [facility] POCT-GLUCOSE METER 2020-07-03 21:06:00 [facility] POCT-GLUCOSE METER 2020-07-03 17:12:00 [facility] APTT 2020-07-03 15:25:[address] [facility] APTT 2020-07-03 14:21:00 [facility] POCT-GLUCOSE METER 2020-07-03 12:08:00 [facility] PO[facility]UCOSE METER 2020-07-03 07:56:00 [facility] SARS-COV2/RT-[facility] ([facility] & 2020-07-03 04:47:00 [facility] - REF LABS) [facility] CBC (HEMOGRAM ONLY) 2020-07-03 04:09:00 Christian Sellers [facility] BASIC METABOLIC PANEL 2020-07-03 04:09:00 Christian Sellers [facility] (7) [facility] APTT 2020-07-03 04:09:00 [facility] POCT-GLUCOSE METER 2020-07-02 17:42:00 Christian Sellers [facility] CBC (HEMOGRAM ONLY) 2020-07-02 17:31:00 [facility] VANCOMYCIN LEVEL, RANDOM 2020-07-02 15:53:00 [facility] POCT-GLUCOSE METER 2020-07-02 14:29:00 Christian Sellers [facility] TISSUE EXAM 2020-07-02 13:10:[address] [facility] AMPUTATION,TOE 2020-07-02 12:39:00 Aleksandr Duong [facility] POCT-GLUCOSE METER 2020-07-02 11:35:00 Christian Sellers [facility] ECG 12-LEAD 2020-07-02 11:28:39 Unknown, Hl7 [facility] POCT-GLUCOSE METER 2020-07-02 07:52:00 Christian Sellers [facility] SARS-COV2/RT-PCR ([facility] & 2020-07-02 04:34:00 Christian Sellers [facility] AP[facility] 2020-07-02 04:32:00 [facility] CBC W/PLT COUNT & AUTO 2020-07-02 02:44:[address] [facility] BASIC METABOLIC PANEL 2020-07-02 02:44:00 MarloChristian [facility] () [facility] APTT 2020-07-02 02:44:00 [facility] (CELLAVISION MANUAL 2020-07-02 02:44:00 MarloChristian Lyudmila [facility] POCT-GLUCOSE METER 2020-07-01 23:07:00 MarloChristian Lyudmila [facility] APTT 2020-07-01 17:35:00 [facility] POCT-GLUCOSE METER 2020-07-01 16:50:[facility] APTT 2020-07-01 13:45:00 [facility] POCT-GLUCOSE METER 2020-07-01 11:56:00 [facility] Ly[facility] POCT-GLUCOSE METER 2020-07-01 07:22:00 MarloFernandobreckenridge Lyudmila [facility] (CELLAVISION MANUAL 2020-07-01 05:24:00 [facility] APTT 2020-07-01 05:24:00 [facility] CBC W/PLT COUNT & AUTO 2020-07-01 05:24:00 Marlo [address]nn Coreas [facility] BASIC METABOLIC PANEL 2020-07-01 05:24:00 [facility] Christian Lyudmila [facility] () [facility] VANCOMYCIN LEVEL, RANDOM 2020-07-01 05:24:00 Mino Hui [facility] HEPATIC FUNCTION PANEL 2020-07-01 05:24:00 Too Pino [facility] POCT-GLUCOSE METER 2020-07-01 00:14:00 [facility] 2020-06-30 23:39:00 [facility] APTT 2020-06-30 16:01:00 [facility] APTT 2020-06-30 14:06:00 [facility] APTT 2020-06-30 13:27:00 [facility] POCT-GLUCOSE METER 2020-06-30 12:00:00 Fernando Sellersbreckenridge Lyudmila [facility] POCT-GLUCOSE METER 2020-06-30 08:07:00 MarloFrenandobreckenridge Lyudmila [facility] APTT 2020-06-30 07:29:00 [facility] VANCOMYCIN LEVEL, RANDOM 2020-06-30 05:20:00 Mino Hui [facility] CBC W/PLT COUNT & AUTO 2020-06-30 05:20:00 [facility] BASIC METABOLIC PANEL 2020-06-30 05:20:00 Christian Sellers [address] (CELLAVISION MANUAL 2020-06-30 05:20:00 Christian Sellers [facility] APTT 2020-06-30 00:01:00 [facility] APTT 2020-06-29 21:53:00 [facility] POCT-GLUCOSE METER 2020-06-29 20:55:00 MarloChristian [facility] POCT-GLUCOSE METER 2020-06-29 17:07:00 [facility] Lyudmila [facility] CBC (HEMOGRAM ONLY) 2020-06-29 13:52:00 [facility] APTT 2020-06-29 13:52:00 [facility] POCT-GLUCOSE METER 2020-06-29 12:02:00 [facility] POCT-GLUCOSE METER 2020-06-29 07:56:00 Christian Sellers [facility] CBC W/PLT COUNT & AUTO 2020-06-29 06:48:[address] [facility] BASIC METABOLIC PANEL 2020-06-29 06:48:00 Barbara Colón [facility] ([address] [place] [address] APTT 2020-06-29 06:48:00 [facility] MAGNESIUM 2020-06-29 06:48:00 Kaya Colvin [facility] (CELLAVISION MANUAL 2020-06-29 06:48:00 Barbara Colón [facility] APTT 2020-06-29 00:13:00 [facility] APTT 2020-06-28 21:37:00 [facility] POCT-GLUCOSE METER 2020-06-28 21:24:00 Christian Sellers [facility] VANCOMYCIN LEVEL, TROUGH 2020-06-28 20:04:00 Barbara Colón [facility] POCT-GLUCOSE METER 2020-06-28 17:31:00 Christian Sellers [facility] VENOGRAM 2020-06-28 14:56:00 Eli Denny [facility] APTT 2020-06-28 13:36:00 [facility] POCT-GLUCOSE METER 2020-06-28 11:40:00 Christian Sellers [facility] POCT-GLUCOSE METER 2020-06-28 07:39:00 Christian Sellers [facility] CBC W/PLT COUNT & AUTO 2020-06-28 04:37:[address] [facility] BASIC METABOLIC PANEL 2020-06-28 04:37:00 Christian Sellers [facility] () [facility] APTT 2020-06-28 04:37:00 [facility] (CELLAVISION MANUAL 2020-06-28 04:37:00 Christian Sellers [facility] POCT-GLUCOSE METER 2020-06-27 23:12:00 Christian Sellers [facility] APTT 2020-06-27 21:25:00 [facility] APTT 2020-06-27 18:32:00 [facility] POCT-GLUCOSE METER 2020-06-27 18:07:00 Fernando Sellersbreckenridge Lyudmila [facility] POCT-GLUCOSE METER 2020-06-27 11:55:00 Christian Sellers [facility] APTT 2020-06-27 11:47:00 [facility] POCT-GLUCOSE METER 2020-06-27 07:18:00 Christian Sellers [facility] CBC W/PLT COUNT & AUTO 2020-06-27 05:36:[address] [facility] BASIC METABOLIC PANEL 2020-06-27 05:36:00 Christian Sellers [facility] (7) [facility] APTT 2020-06-27 05:36:00 [facility] (CELLAVISION MANUAL 2020-06-27 05:36:00 Christian Sellers [facility] HC ARTERIAL DOPPLER LEGS 2020-06-27 00:18:00 Nemo Perez [facility] APTT 2020-06-26 22:43:00 [facility] POCT-GLUCOSE METER 2020-06-26 17:33:00 Fernando Sellersbreckenridge Lyudmila [facility] CBC (HEMOGRAM ONLY) 2020-06-26 15:21:00 [facility] APTT 2020-06-26 15:21:00 Fernando Sellersash D [facility] POCT-GLUCOSE METER 2020-06-26 12:23:00 Christian Sellers [facility] BASIC METABOLIC PANEL 2020-06-26 03:35:00 [facility] () [facility] HEMOGLOBIN A1C 2020-06-26 03:35:00 [facility] CBC W/PLT COUNT & AUTO 2020-06-26 03:35:00 [facility] C-REACTIVE PROTEIN 2020-06-26 03:35:00 [facility] VITAMIN B12 AND FOLATE 2020-06-26 03:35:00 [facility] (CELLAVISION MANUAL 2020-06-26 03:35:00 [facility] - DIFF) [facility] XR FOOT 3 VIEWS RIGHT 2020-06-25 23:30:00 [facility] VENOUS DOPPLER LEG, 2020-06-25 22:58:[address] [facility] RIGHT [facility] SARS-COV2/RT-PCR ([facility] & 2020-06-25 21:40:00 Jaiden No [facility] - REF LABS) [facility] BLOOD CULTURE 2020-06-25 21:40:00 Suri Chahal [facility] BLOOD CULTURE 2020-06-25 18:39:00 Suri Chahal [facility] BLOOD CULTURE 2020-06-25 18:36:00 Suri Chahal [facility] CBC W/PLT COUNT & AUTO 2020-06-25 18:36:00 Suri Chahal [facility] BASIC METABOLIC PANEL 2020-06-25 18:36:00 Suri Chahal I [facility] (7) [facility] LACTIC ACID, VENOUS 2020-06-25 18:36:00 Suri Chahal [facility] PT/APTT 2020-06-25 18:36:00 Suri Chahal [facility] C-REACTIVE PROTEIN 2020-06-25 18:36:00 Suri Chahal [facility] S t [facility] (CELLAVISION MANUAL 2020-06-25 18:36:00 Suri Chahal [facility] - DIFF) [facility] CARDIAC CATH REPORT - 2020-06-25 00:00:00 Provider, [facility] - SCAN Scanning [facility] Arthroplasty of [facility] knee<sup>1</sup> Procedure<sup>2</sup> [facility] Plan of Care Planned Activity Planned Date Details Comments Source Future Scheduled 2020-12-27 Hemoglobin A1c [facility] - Test 00:00:00 [facility] (procedure) [code = 60273548] Future Scheduled 2020-12-02 COVID-19 Vaccine (1) [facility] Test 12:35:52 [code = COVID-19 of Medicine Vaccine (1)] Future Scheduled 2020-12-02 TETANUS SHOT (ADULT) [facility] Test 12:35:52 [code = TETANUS SHOT of Medi cine (ADULT)] Future Scheduled 2020-12-02 Diabetic foot [facility] Col lege Test 12:35:52 examination of Medicine (regime/therapy) [code = 194433567] Future Scheduled 2020-12-02 Hepatitis C [facility] Stew ege Test 12:35:52 screening of Medicine (procedure) [code = 645216207] Future Scheduled 2020-12-02 ZOSTER VACCINE (1 of [facility] Test 12:35:52 2) [code = ZOSTER of Medicin e VACCINE (1 of 2)] Future Scheduled 2020-12-02 PNEUMOVAX >=65 [facility] Test 12:35:52 (PPSV23) [code = of Medicine PNEUMOVAX >=65 (PPSV23)] Future Scheduled 2020-12-02 ANNUAL DIABETIC [facility] C ollege Test 12:35:52 RETINOPATHY of Medicine SCREENING [code = ANNUAL DIABETIC RETINOPATHY SCREENING] Future Scheduled 2020-12-02 MEDICARE IPPE [facility] Col [facility]ge Test 12:35:52 (WELCOME TO of Medicine MEDICARE) [code = MEDICARE IPPE (WELCOME TO MEDICARE)] Future Scheduled 2020-12-02 FLU VACCINE > 6 [facility] C [facility]lege Test 12:35:52 MONTHS [code = FLU of Medici ne VACCINE > 6 MONTHS] Future Scheduled 2020-12-02 BMI FOLLOW UP PLAN [facility] r College Test 12:35:52 [code = BMI FOLLOW of Medici ne UP PLAN] Future Scheduled 2020-12-02 FALL SCREEN [code = [facility] or College Test 12:35:52 FALL SCREEN] of Medicine Future Scheduled 2020-11-27 COMPRESSION STOCKING Ordered: [facility] Test 13:57:18 15-20MM [code = 11/27/2020 of Medicine NOCPT] Future Scheduled 2020-11-27 US ARTERIAL LEGS 1 Occurrences [facility] Test 13:56:56 BILATERAL [code = starting of Medicin e 54799-4] 11/27/2020 until 11/27/2021 Future Scheduled 2020-11-01 COVID-19 Vaccine (1) [facility] Test 07:39:50 [code = COVID-19 of Medicine Vaccine (1)] Future Scheduled 2020-11-01 TETANUS SHOT (ADULT) [facility] Test 07:39:50 [code = TETANUS SHOT of Medi cine (ADULT)] Future Scheduled 2020-11-01 Diabetic foot [facility] Test 07:39:50 examination of Medicine (regime/therapy) [code = 955988935] Future Scheduled 2020-11-01 Hepatitis C [facility] Test 07:39:50 screening of Medicine (procedure) [code = 879924678] Future Scheduled 2020-11-01 ZOSTER VACCINE (1 of [facility] Test 07:39:50 2) [code = ZOSTER of Medicin e VACCINE (1 of 2)] Future Scheduled 2020-11-01 PNEUMOVAX >=65 [facility] Test 07:39:50 (PPSV23) [code = of Medicine PNEUMOVAX >=65 (PPSV23)] Future Scheduled 2020-11-01 ANNUAL DIABETIC [facility] Test 07:39:50 RETINOPATHY of Medicine SCREENING [code = ANNUAL DIABETIC RETINOPATHY SCREENING] Future Scheduled 2020-11-01 MEDICARE IPPE [facility] Test 07:39:50 (WELCOME TO of Medicine MEDICARE) [code = MEDICARE IPPE (WELCOME TO MEDICARE)] Future Scheduled 2020-11-01 FLU VACCINE > 6 [facility] Test 07:39:50 MONTHS [code = FLU of Medici ne VACCINE > 6 MONTHS] Future Scheduled 2020-11-01 BMI FOLLOW UP PLAN [employer] Test 07:39:50 [code = BMI FOLLOW of Medici ne UP PLAN] Future Scheduled 2020-11-01 FALL SCREEN [code = [employer] Test 07:39:50 FALL SCREEN] of Medicine Future Scheduled 2020-11-01 COVID-19 Vaccine (1) [employer] [facility] 07:39:50 [code = COVID-19 of Medicine Vaccine (1)] Future Scheduled 2020-11-01 TETANUS SHOT (ADULT) [employer] Test 07:39:50 [code = TETANUS SHOT of Medi cine (ADULT)] Future Scheduled 2020-11-01 Diabetic foot [facility] Test 07:39:50 examination of Medicine (regime/therapy) [code = 203023065] Future Scheduled 2020-11-01 Hepatitis C [facility] Test 07:39:50 screening of Medicine (procedure) [code = 251624780] Future Scheduled 2020-11-01 ZOSTER VACCINE (1 of [employer] Test 07:39:50 2) [code = ZOSTER of Medicin e VACCINE (1 of 2)] Future Scheduled 2020-11-01 PNEUMOVAX >=65 [facility] Test 07:39:50 (PPSV23) [code = of Medicine PNEUMOVAX >=65 (PPSV23)] Future Scheduled 2020-11-01 ANNUAL DIABETIC [facility] Test 07:39:50 RETINOPATHY of Medicine SCREENING [code = ANNUAL DIABETIC RETINOPATHY SCREENING] Future Scheduled 2020-11-01 MEDICARE IPPE [facility] Test 07:39:50 (WELCOME TO of Medicine MEDICARE) [code = MEDICARE IPPE (WELCOME TO MEDICARE)] Future Scheduled 2020-11-01 FLU VACCINE > 6 [facility] Test 07:39:50 MONTHS [code = FLU of Medici ne VACCINE > 6 MONTHS] Future Scheduled 2020-11-01 BMI FOLLOW UP PLAN [employer] Test 07:39:50 [code = BMI FOLLOW of Medici ne UP PLAN] Future Scheduled 2020-11-01 FALL SCREEN [code = [employer] Test 07:39:50 FALL SCREEN] of Medicine Future Scheduled 2020-10-30 COVID-19 Vaccine (1) [employer] Test 09:03:34 [code = COVID-19 of Medicine Vaccine (1)] Future Scheduled 2020-10-30 TETANUS SHOT (ADULT) [employer] Test 09:03:34 [code = TETANUS SHOT of Medi cine (ADULT)] Future Scheduled 2020-10-30 Diabetic foot [facility] Test 09:03:34 examination of Medicine (regime/therapy) [code = 387658279] Future Scheduled 2020-10-30 Hepatitis C [facility] Test 09:03:34 screening of Medicine (procedure) [code = 508823250] Future Scheduled 2020-10-30 ZOSTER VACCINE (1 of [facility] Test 09:03:34 2) [code = ZOSTER of Medicin e VACCINE (1 of 2)] Future Scheduled 2020-10-30 PNEUMOVAX >=65 [facility] Test 09:03:34 (PPSV23) [code = of Medicine PNEUMOVAX >=65 (PPSV23)] Future Scheduled 2020-10-30 ANNUAL DIABETIC [facility] Test 09:03:34 RETINOPATHY of Medicine SCREENING [code = ANNUAL DIABETIC RETINOPATHY SCREENING] Future Scheduled 2020-10-30 MEDICARE IPPE [facility] Test 09:03:34 (WELCOME TO of Medicine MEDICARE) [code = MEDICARE IPPE (WELCOME TO MEDICARE)] Future Scheduled 2020-10-30 FLU VACCINE > 6 [facility] Test 09:03:34 MONTHS [code = FLU of Medici ne VACCINE > 6 MONTHS] Future Scheduled 2020-10-30 BMI FOLLOW UP PLAN [employer] Test 09:03:34 [code = BMI FOLLOW of Medici ne UP PLAN] Future Scheduled 2020-10-30 FALL SCREEN [code = [employer] Test 09:03:34 FALL SCREEN] of Medicine Future Scheduled 2020-10-30 COVID-19 Vaccine (1) [employer] Test 09:03:34 [code = COVID-19 of Medicine Vaccine (1)] Future Scheduled 2020-10-30 TETANUS SHOT (ADULT) [employer] Test 09:03:34 [code = TETANUS SHOT of Medi cine (ADULT)] Future Scheduled 2020-10-30 Diabetic foot [facility] Test 09:03:34 examination of Medicine (regime/therapy) [code = 640359944] Future Scheduled 2020-10-30 Hepatitis C [facility] Test 09:03:34 screening of Medicine (procedure) [code = 680414655] Future Scheduled 2020-10-30 ZOSTER VACCINE (1 of [facility] Test 09:03:34 2) [code = ZOSTER of Medicin e VACCINE (1 of 2)] Future Scheduled 2020-10-30 PNEUMOVAX >=65 [facility] Test 09:03:34 (PPSV23) [code = of Medicine PNEUMOVAX >=65 (PPSV23)] Future Scheduled 2020-10-30 ANNUAL DIABETIC [facility] Test 09:03:34 RETINOPATHY of Medicine SCREENING [code = ANNUAL DIABETIC RETINOPATHY SCREENING] Future Scheduled 2020-10-30 MEDICARE IPPE [facility] Test 09:03:34 (WELCOME TO of Medicine MEDICARE) [code = MEDICARE IPPE (WELCOME TO MEDICARE)] Future Scheduled 2020-10-30 FLU VACCINE > 6 [facility] Test 09:03:34 MONTHS [code = FLU of Medici ne VACCINE > 6 MONTHS] Future Scheduled 2020-10-30 BMI FOLLOW UP PLAN [facility] Test 09:03:34 [code = BMI FOLLOW of Medici ne UP PLAN] Future Scheduled 2020-10-30 FALL SCREEN [code = [facility] or [facility] Test 09:03:34 FALL SCREEN] of Medicine Future Scheduled 2020-10-16 XR FOOT RIGHT 1 Occurrences [facility] Test 12:25:23 (COMPLETE) [code = [place] [address]-0] 10/16/2020 until 10/16/2021 Future Scheduled 2020-10-16 XR FOOT RIGHT 1 Occurrences [facility] Test 12:25:23 (COMPLETE) [code = [place] [address]-4] 10/16/2020 until 10/16/2021 Future Scheduled 2020-10-16 WOUND CARE Ordered: [facility] 12:24:46 INSTRUCTIONS [code = 10/16/2020 of [facility] 29482] Future Scheduled 2020-10-16 WOUND CARE Ordered: [facility] 12:24:46 INSTRUCTIONS [code = 10/16/2020 of [email or web address] 85723] Future Scheduled 2020-10-16 WOUND CARE Ordered: [facility] Test 12:20:05 INSTRUCTIONS [code = 10/16/2020 of [email or web address] 09966] Future Scheduled 2020-10-16 WOUND CARE Ordered: [facility] Test 12:20:05 INSTRUCTIONS [code = 10/16/2020 of [email or web address] 79454] Future Scheduled 2020-10-[address] [facility] Test 00:00:00 (#1) [code = Medical Center INFLUENZA VACCINE (#1)] Future Scheduled 2020-10-04 COVID-19 Vaccine (1) [facility] Test 12:36:13 [code = COVID-19 of Medicine Vaccine (1)] Future Scheduled 2020-10-04 TETANUS SHOT (ADULT) [facility] Test 12:36:13 [code = TETANUS SHOT of [email or web address] (ADULT)] Future Scheduled 2020-10-04 Diabetic foot [facility] Test 12:36:13 examination of Medicine (regime/therapy) [code = 004282744] Future Scheduled 2020-10-04 Hepatitis C [facility] Test 12:36:13 screening of Medicine (procedure) [code = 772926416] Future Scheduled 2020-10-04 ZOSTER VACCINE (1 of [facility] Test 12:36:13 2) [code = ZOSTER of Medicin e VACCINE (1 of 2)] Future Scheduled 2020-10-04 PNEUMOVAX >=65 [facility] Test 12:36:13 (PPSV23) [code = of Medicine PNEUMOVAX >=65 (PPSV23)] Future Scheduled 2020-10-04 ANNUAL DIABETIC [facility] Test 12:36:13 RETINOPATHY of Medicine SCREENING [code = ANNUAL DIABETIC RETINOPATHY SCREENING] Future Scheduled 2020-10-04 MEDICARE IPPE [facility] Test 12:36:13 (WELCOME TO of Medicine MEDICARE) [code = MEDICARE IPPE (WELCOME TO MEDICARE)] Future Scheduled 2020-10-04 FLU VACCINE > 6 [facility] Test 12:36:13 MONTHS [code = FLU of Medici ne VACCINE > 6 MONTHS] Future Scheduled 2020-10-04 BMI FOLLOW UP PLAN [facility] Test 12:36:13 [code = BMI FOLLOW of Medici ne UP PLAN] Future Scheduled 2020-10-04 FALL SCREEN [code = [facility] Test 12:36:13 FALL SCREEN] of Medicine Future Scheduled 2020-10-03 US ARTERIAL LEG 1 Occurrences [facility] Test 14:20:41 RIGHT [code = 08571] starting of Medi [employer] 10/03/2020 until 10/03/2021 Future Scheduled 2020-10-03 WOUND CARE Ordered: [facility] Test 14:18:36 INSTRUCTIONS [code = 10/03/2020 of [email or web address] 65601] Future Scheduled 2020-10-03 XR FOOT RIGHT 2 1 Occurrences [facility] Test 14:02:12 VIEWS STANDING [code starting of [email or web address] = 64820] 10/03/2020 until 10/03/2021 Future Scheduled 2020-10-03 XR FOOT RIGHT AP AND 1 Occurrences [facility] Test 14:02:12 LATERAL [code = starting of Medicine 32446-0] 10/03/2020 until 10/03/2021 Future Scheduled 2020-10-01 COVID-19 Vaccine (1) [facility] Test 14:09:03 [code = COVID-19 of Medicine Vaccine (1)] Future Scheduled 2020-10-01 TETANUS SHOT (ADULT) [facility] Test 14:09:03 [code = TETANUS SHOT of [email or web address] (ADULT)] Future Scheduled 2020-10-01 Diabetic foot [facility] Test 14:09:03 examination of Medicine (regime/therapy) [code = 504665540] Future Scheduled 2020-10-01 Hepatitis C [facility] Test 14:09:03 screening of Medicine (procedure) [code = 448793056] Future Scheduled 2020-10-01 ZOSTER VACCINE (1 of [facility] Test 14:09:03 2) [code = ZOSTER of Medicin e VACCINE (1 of 2)] Future Scheduled 2020-10-01 PNEUMOVAX >=65 [facility] Test 14:09:03 (PPSV23) [code = of Medicine PNEUMOVAX >=65 (PPSV23)] Future Scheduled 2020-10-01 ANNUAL DIABETIC [facility] Test 14:09:03 RETINOPATHY of Medicine SCREENING [code = ANNUAL DIABETIC RETINOPATHY SCREENING] Future Scheduled 2020-10-01 MEDICARE IPPE [facility] Test 14:09:03 (WELCOME TO of Medicine MEDICARE) [code = MEDICARE IPPE (WELCOME TO MEDICARE)] Future Scheduled 2020-10-01 FLU VACCINE > 6 [facility] Test 14:09:03 MONTHS [code = FLU of Medici ne VACCINE > 6 MONTHS] Future Scheduled 2020-10-01 BMI FOLLOW UP PLAN [employer] Test 14:09:03 [code = BMI FOLLOW of Medici ne UP PLAN] Future Scheduled 2020-10-01 FALL SCREEN [code = [employer] Test 14:09:03 FALL SCREEN] of Medicine Future Scheduled 2020-09-05 COVID-19 Vaccine (1) [employer] Test 11:08:02 [code = COVID-19 of Medicine Vaccine (1)] Future Scheduled 2020-09-05 TETANUS SHOT (ADULT) [employer] Test 11:08:02 [code = TETANUS SHOT of Medi cine (ADULT)] Future Scheduled 2020-09-05 Diabetic foot [facility] Test 11:08:02 examination of Medicine (regime/therapy) [code = 366820265] Future Scheduled 2020-09-05 Hepatitis C [facility] Test 11:08:02 screening of Medicine (procedure) [code = 306234336] Future Scheduled 2020-09-05 ZOSTER VACCINE (1 of [facility] Test 11:08:02 2) [code = ZOSTER of Medicin e VACCINE (1 of 2)] Future Scheduled 2020-09-05 PNEUMOVAX >=65 [facility] Test 11:08:02 (PPSV23) [code = of Medicine PNEUMOVAX >=65 (PPSV23)] Future Scheduled 2020-09-05 ANNUAL DIABETIC [facility] Test 11:08:02 RETINOPATHY of Medicine SCREENING [code = ANNUAL DIABETIC RETINOPATHY SCREENING] Future Scheduled 2020-09-05 MEDICARE IPPE [facility] Test 11:08:02 (WELCOME TO of Medicine MEDICARE) [code = MEDICARE IPPE (WELCOME TO MEDICARE)] Future Scheduled 2020-09-05 FLU VACCINE > 6 [facility] Test 11:08:02 MONTHS [code = FLU of Medici ne VACCINE > 6 MONTHS] Future Scheduled 2020-09-05 BMI FOLLOW UP PLAN [facility] Test 11:08:02 [code = BMI FOLLOW of Medici ne UP PLAN] Future Scheduled 2020-09-05 FALL SCREEN [code = [employer] Test 11:08:02 FALL SCREEN] of Medicine Future Scheduled 2020-09-04 XR FOOT RIGHT 1 Occurrences [facility] Test 11:12:34 (COMPLETE) [code = [place] [address]-9] 09/04/2020 until 09/04/2021 Future Scheduled 2020-09-02 COVID-19 Vaccine (1) [employer] Test 21:21:23 [code = COVID-19 of Medicine Vaccine (1)] Future Scheduled 2020-09-02 TETANUS SHOT (ADULT) [employer] Test 21:21:23 [code = TETANUS SHOT of Medi cine (ADULT)] Future Scheduled 2020-09-02 Diabetic foot [facility] Test 21:21:23 examination of Medicine (regime/therapy) [code = 680221088] Future Scheduled 2020-09-02 Hepatitis C [facility] Test 21:21:23 screening of Medicine (procedure) [code = 821360434] Future Scheduled 2020-09-02 ZOSTER VACCINE (1 of [employer] Test 21:21:23 2) [code = ZOSTER of Medicin e VACCINE (1 of 2)] Future Scheduled 2020-09-02 PNEUMOVAX >=65 [facility] Test 21:21:23 (PPSV23) [code = of Medicine PNEUMOVAX >=65 (PPSV23)] Future Scheduled 2020-09-02 ANNUAL DIABETIC [facility] Test 21:21:23 RETINOPATHY of Medicine SCREENING [code = ANNUAL DIABETIC RETINOPATHY SCREENING] Future Scheduled 2020-09-02 MEDICARE IPPE [facility] Test 21:21:23 (WELCOME TO of Medicine MEDICARE) [code = MEDICARE IPPE (WELCOME TO MEDICARE)] Future Scheduled 2020-09-02 FLU VACCINE > 6 [facility] Test 21:21:23 MONTHS [code = FLU of Medici ne VACCINE > 6 MONTHS] Future Scheduled 2020-09-02 BMI FOLLOW UP PLAN [employer] Test 21:21:23 [code = BMI FOLLOW of Medici ne UP PLAN] Future Scheduled 2020-09-02 FALL SCREEN [code = [employer] Test 21:21:23 FALL SCREEN] of Medicine Future Scheduled 2020-08-07 COVID-19 Vaccine (1) [facility] [employer] Test 10:20:20 [code = COVID-19 of Medicine Vaccine (1)] Future Scheduled 2020-08-07 TETANUS SHOT (ADULT) [facility] Test 10:20:20 [code = TETANUS SHOT of Medi cine (ADULT)] Future Scheduled 2020-08-07 Diabetic foot [facility] Test 10:20:20 examination of Medicine (regime/therapy) [code = 527922766] Future Scheduled 2020-08-07 Hepatitis C [facility] Test 10:20:20 screening of Medicine (procedure) [code = 416301182] Future Scheduled 2020-08-07 ZOSTER VACCINE (1 of [facility] Test 10:20:20 2) [code = ZOSTER of Medicin e VACCINE (1 of 2)] Future Scheduled 2020-08-07 PNEUMOVAX >=65 [facility] Test 10:20:20 (PPSV23) [code = of Medicine PNEUMOVAX >=65 (PPSV23)] Future Scheduled 2020-08-07 ANNUAL DIABETIC [facility] Test 10:20:20 RETINOPATHY of Medicine SCREENING [code = ANNUAL DIABETIC RETINOPATHY SCREENING] Future Scheduled 2020-08-07 MEDICARE IPPE [facility] Test 10:20:20 (WELCOME TO of Medicine MEDICARE) [code = MEDICARE IPPE (WELCOME TO MEDICARE)] Future Scheduled 2020-08-07 FLU VACCINE > 6 [facility] Test 10:20:20 MONTHS [code = FLU of Medici ne VACCINE > 6 MONTHS] Future Scheduled 2020-08-07 BMI FOLLOW UP PLAN [facility] Test 10:20:20 [code = BMI FOLLOW of Medici ne UP PLAN] Future Scheduled 2020-08-07 FALL SCREEN [code = [facility] Test 10:20:20 FALL SCREEN] of Medicine Future Scheduled 2020-08-07 US ARTERIAL LEG 1 Occurrences [facility] Test 09:52:01 RIGHT [code = 03312] starting of Medi cine 08/07/2020 until 08/07/2021 Future Scheduled 2020-08-06 COVID-19 Vaccine (1) [facility] [employer] Test 08:20:27 [code = COVID-19 of Medicine Vaccine (1)] Future Scheduled 2020-08-06 TETANUS SHOT (ADULT) [employer] Test 08:20:27 [code = TETANUS SHOT of Medi cine (ADULT)] Future Scheduled 2020-08-06 Diabetic foot [facility] Test 08:20:27 examination of Medicine (regime/therapy) [code = 906512979] Future Scheduled 2020-08-06 Hepatitis C [facility] Test 08:20:27 screening of Medicine (procedure) [code = 233486852] Future Scheduled 2020-08-06 ZOSTER VACCINE (1 of [employer] Test 08:20:27 2) [code = ZOSTER of Medicin e VACCINE (1 of 2)] Future Scheduled 2020-08-06 FALL SCREEN [code = [facility] Test 08:20:27 FALL SCREEN] of Medicine Future Scheduled 2020-08-06 PNEUMOVAX >=65 [facility] Test 08:20:27 (PPSV23) [code = of Medicine PNEUMOVAX >=65 (PPSV23)] Future Scheduled 2020-08-06 ANNUAL DIABETIC [facility] Test 08:20:27 RETINOPATHY of Medicine SCREENING [code = ANNUAL DIABETIC RETINOPATHY SCREENING] Future Scheduled 2020-08-06 MEDICARE IPPE [facility] Test 08:20:27 (WELCOME TO of Medicine MEDICARE) [code = MEDICARE IPPE (WELCOME TO MEDICARE)] Future Scheduled 2020-08-06 FLU VACCINE > 6 [facility] Test 08:20:27 MONTHS [code = FLU of Medici ne VACCINE > 6 MONTHS] Future Scheduled 2020-08-06 BMI FOLLOW UP PLAN [facility] Test 08:20:27 [code = BMI FOLLOW of Medici ne UP PLAN] Future Scheduled 2020-08-02 BMI FOLLOW UP PLAN [facility] Test 11:29:43 [code = BMI FOLLOW of Medici ne UP PLAN] Future Scheduled 2020-08-02 COVID-19 Vaccine (1) [employer] [facility] 08:17:30 [code = COVID-19 of Medicine Vaccine (1)] Future Scheduled 2020-08-02 TETANUS SHOT (ADULT) [employer] Test 08:17:30 [code = TETANUS SHOT of Medi cine (ADULT)] Future Scheduled 2020-08-02 Diabetic foot [facility] Test 08:17:30 examination of Medicine (regime/therapy) [code = 859507067] Future Scheduled 2020-08-02 Hepatitis C [facility] Test 08:17:30 screening of Medicine (procedure) [code = 758799462] Future Scheduled 2020-08-02 ZOSTER VACCINE (1 of [facility] Test 08:17:30 2) [code = ZOSTER of Medicin e VACCINE (1 of 2)] Future Scheduled 2020-08-02 FALL SCREEN [code = [facility] Test 08:17:30 FALL SCREEN] of Medicine Future Scheduled 2020-08-02 PNEUMOVAX >=65 [facility] 08:17:30 (PPSV23) [code = of Medicine PNEUMOVAX >=65 (PPSV23)] Future Scheduled 2020-08-02 ANNUAL DIABETIC [facility] Test 08:17:30 RETINOPATHY of Medicine SCREENING [code = ANNUAL DIABETIC RETINOPATHY SCREENING] Future Scheduled 2020-08-02 MEDICARE IPPE [facility] Test 08:17:30 (WELCOME TO of Medicine MEDICARE) [code = MEDICARE IPPE (WELCOME TO MEDICARE)] Future Scheduled 2020-08-02 FLU VACCINE > 6 [facility] Test 08:17:30 MONTHS [code = FLU of Medici ne VACCINE > 6 MONTHS] Future Scheduled 2020-02-[address] [facility] - Test 00:00:00 (12+) [code = Medical Center DEPRESSION SCREENING (12+)] Future Scheduled 2020-02-09 FALLS RISK SCREENING [facility] Test 00:00:00 [code = FALLS RISK Medical C enter SCREENING] Future Scheduled 2018-01-30 Urine screening for [facility] Test 00:00:00 protein (procedure) [facility] Center [code = 707970243] Future Scheduled 2017-02-[address] [facility] Test 00:[facility]:00 WELLNESS (YEAR 2 or Medical Center FIRST YEAR if no IPPE) [code = MEDICARE ANNUAL WELLNESS (YEAR 2 or FIRST YEAR if no IPPE)] Future Scheduled 2008-06-12 PNEUMOCOCCAL 65+ YRS [facility] - Test 00:00:00 (1 of 1 - Medical Center [id number] [id number]) [code = PNEUMOCOCCAL 65+ YRS (1 of 1 - [id number] PCV13)] Future Scheduled 1993-06-12 SHINGLES VACCINES ([address] [facility] - Test 00:00:00 of 2) [code = Medical Center SHINGLES VACCINES (1 of 2)] Future Scheduled 1962-06-12 DTAP/TDAP/TD [facility] VACCINES (1 - Tdap) [facility] Center [code = DTAP/TDAP/TD VACCINES (1 - Tdap)] Future Scheduled 1961-06-[address] [facility] Test 00:[facility]:00 SCREENING [code = Medical nter HEPATITIS C SCREENING] Future Scheduled 1955 COVID-19 VACCINE (1) [facility] Test 00:00:00 [code = COVID-[address] VACCINE (1)] Future Scheduled 1953-06-[address] DI[address] EYE EXAM [facility] Test 00:00:00 [code = DIABETIC EYE [facility] Center EXAM] Future Scheduled 1953-06-[address] [facility] [facility] Test [facility]00 examination [facility] Center (regime/therapy) [code = 404434422] Encounters Start End Encounter Admission Attending Care Care Encounter Source Date/Time Date/Time Type Type Clinicians Facility Department ID 2020-11-27 2020-11-27 Office ROMMEL Denny [id number] [facility] 13:12:32 14:05:32 Visit Eli AMBULATOR [id number] College Y [id number] [id number] [facility] perla 825 e 2020-11-27 2020-11-27 Outpatient [facility] [id number] [facility] 10:48:51 13:45:39 Colleg e of Medicin e 2020-11-11 2020-11-11 Outpatient [facility] [id number] [facility] 00:00:00 23:59:00 Abhay e of Medicin e 2020-11-11 2020-11-11 Outpatient SHERWIN BOUCHER Surgery [id number] [facility] 07:29:00 17:16:00 ELI 2020-11-07 2020-11-07 Outpatient [facility] [id number] [facility] 00:00:00 00:00:00 2020-10-30 2020-10-30 Office ROMMEL Denny [id number] [facility] 08:31:33 08:46:33 Visit Eli AMBULATOR 350.1.13.21 College Y 0.2.7.2.686 of [id number] [facility] perla 825 e 2020-10-30 2020-10-30 Outpatient RHODA, BCM [facility] [id number] [facility] 08:31:57 08:31:57 ALEKSANDR Reyesg e of Medicin e 2020-10-24 2020-10-25 Outpatient BCM [facility] [id number] [facility] 14:55:13 08:48:45 Colleg e of Medicin e 2020-10-16 2020-10-16 Office Rhoda, BCM [id number] [facility] 11:14:16 12:32:32 Visit Aleksandr Cross AMBULATOR 350.1.13.21 College Y [id number] of [id number] [facility] 825 e 2020-10-16 2020-10-16 Outpatient LEPOW, [facility] [id number] [facility] 00:00:00 00:00:00 ALEKSANDR 2020-10-03 2020-10-03 Office Rhoda, BCM [id number] [facility] 12:47:24 14:32:56 Visit Aleksandr Cross AMBULATOR 350.1.13.21 College Y 0.2.7.2.686 of [id number] [facility] 825 e 2020-09-04 2020-09-04 Office Rhoda, BCM [id number] [facility] 10:11:54 11:24:16 Visit Aleksandr Esteban AMBULATOR 350.1.13.21 College Y 0.2.7.2.686 of [id number] [facility] perla 825 e 2020-09-04 2020-09-04 Outpatient LEPOW, [facility]H [facility] [id number] [facility] 00:00:00 00:00:00 ALEKSANDR 2020-08-21 2020-08-21 Office Rhoda, BCM [id number] [facility] 10:04:48 11:02:48 Visit Aleksandr Cross AMBULATOR 350.1.13.21 College Y 0.2.7.2.686 of [id number] [facility] 825 e 2020-08-21 2020-08-21 Office ROMMEL Duong [id number] 10:04:48 11:02:48 Visit Aleksandr Cross AMBULATOR 350.1.13.21 Y 0.2.7.2.686 [id number] [facility] 2020-08-07 2020-08-07 Office ROMMEL Duong 1.2.840.114 [id number] [facility] 09:18:28 10:13:08 Visit Aleksandr Cross AMBULATOR 350.1.13.21 College Y 0.2.7.2.686 of [id number] [facility] 825 e 2020-08-07 2020-08-07 Office ROMMEL Duong 1.2.840.114 [id number] 09:18:28 10:13:08 Visit Aleksandr Cross AMBULATOR 350.1.13.21 Y 0.2.7.2.686 [id number] [facility] 2020-08-07 2020-08-07 Office ROMMEL Denny 1.2.840.114 [id number] [facility] 09:18:00 09:33:00 Visit Eli AMBULATOR 350.1.13.21 College Y 0.2.7.2.686 of [id number] [facility] 825 e 2020-08-07 2020-08-07 Office ROMMEL Denny 1.2.840.114 [id number] 09:18:00 09:33:00 Visit Eli AMBULATOR 350.1.13.21 Y 0.2.7.2.686 [id number] [facility] 2020-07-25 2020-07-25 Office ROMMEL Kaur 1.2.114.254 [id number] [facility] 10:24:58 11:19:37 Visit Peg AMBULATOR 350.1.13.21 College Raejoy Y 0.2.7.2.686 of [id number] [facility] 825 e 2020-07-25 2020-07-25 Office ROMMEL Kaur 1.2.765.793 [id number] 10:24:58 11:19:37 Visit Peg AMBULATOR 350.1.13.21 Raejoy Y 0.2.7.2.686 [id number] 825 2020-07-17 2020-07-17 Office ROMMEL Duong 1.2.840.114 [id number] [facility] 09:14:49 10:09:41 Visit Aleksandr Cross AMBULATOR 350.1.13.21 College Y 0.2.7.2.686 [id number] [facility] 825 e 2020-07-17 2020-07-17 Office Rhoda BCTracy 1.2.840.114 [id number] 09:14:49 10:09:41 Visit Aleksandr Cross AMBULATOR 350.1.13.21 Y 0.2.7.2.686 [id number] 825 2020-06-25 2020-06-25 Emergency ER [facility] Emergency [id number] [facility] 15:48:00 15:48:00 2016-09-11 2016-09-12 Bedded [facility] [id number] [facility] 15:41:00 21:00:[address] 2014-03-06 2014-03-06 OBS Day [facility] [id number] [facility] 16:57:00 21:00:[address] Results Test Description Test Time Test Comments Results Result Comments Source POCT-GLUCOSE METER 2020-11-11 16:02:46 Test Item Value Reference Range Interpretation Comme nts POC-GLUCOSE METER ([employer]) 75 mg/dL 70-110 : TESTED AT [facility] [address] [facility] (test code = 1538) [facility] X, [address]: Janitorial Services Supervisor/Techni heather ID = [id number] for CHARLOTTE MONTENEGRO POCT-GLUCOSE [id number] 15:30:00 Test Item Value Reference Range Interpretation Comments POC-GLUCOSE METER 74 mg/dL 70-110 : TESTED A [facility] 6720 ([employer]) (test code = [place], 1538) [address]: Janitorial Services Supervisor/Techni heather ID = [id number] for Andra Louis BASIC METABOLIC [id number] 09:36:15 Test Item Value Reference Range Interpretation Comments SODIUM (BEAKER) 139 meq/L 136-145 (test code = 381) POTASSIUM (BEAKER) 4.4 meq/L 3.5-5.1 (test code = 379) CHLORIDE (BEAKER) 110 meq/L 98-107 H (test code = 382) CO2 (BEAKER) (test 23 meq/L 22-29 code = 355) BLOOD UREA NITROGEN 27 mg/dL 7-21 H (BEAKER) (test code = 354) CREATININE (BEAKER) 1.57 mg/dL 0.57-1.25 H (test code = 358) GLUCOSE RANDOM 94 mg/dL 70-105 (BEAKER) (test code = 652) CALCIUM (BEAKER) 8.7 mg/dL 8.4-10.2 (test code = 697) EGFR (BEAKER) (test 43 mL/min/1.73 ESTIMA VY GFR IS code = 1092) sq m NOT ACCURATE CREATININE CLEARANCE IN PREDICTING GLOMERULAR FILTRATION RATE . ESTIMATED GFR I S NOT APPLICABLE FOR DIALYSIS PATIEVANGELISTA STUBBS. Janitorial Services Supervisor ID - NIURKA [id number] 09:30:12 Test Item Value Reference Range Interpretation Comments PARTIAL THROMBOPLASTIN TIME 33.8 seconds 22.5-36.0 (BEAKER) (test code = 760) PROTHROMBIN TIME/[id number] 09:29:16 Test Item Value Reference Range Interpretation Comments PROTIME (BEAKER) 16.6 seconds 11.9-14.2 H (test code = 759) INR (BEAKER) (test 1.36 See_Comment [Automat ed message] code = 370) The system [employer] generated this result transmitted ref erence range: <=5.90. The reference range was not used to int erpret this result as normal/abnormal . RECOMMENDED COUMADIN/WARFARIN INR THERAPY RANGESSTANDARD DOSE: 2.0 - 3.0 Includes: PROPHYLAXIS forvenous thrombosis, systemic embolization; TREATMENT for venous thrombosis and/or pulmonary embolus.HIGH RISK: Target INR is 2.5-3.5 for patients with mechanical heart valves.CBC (HEMOGRAM ONLY)2020-11-11 09:22:13 Test Item Value Reference Range Interpretation Comments WHITE BLOOD CELL COUNT (BEAKER) 10.4 K/ L 3.5-10.5 (test code = 775) RED BLOOD CELL COUNT (BEAKER) 3.22 M/ L 4.63-6.08 L (test code = 761) HEMOGLOBIN (BEAKER) (test code = 9.8 GM/DL 13.7-17.5 L 410) HEMATOCRIT (BEAKER) (test code = 32.2 % 40.1-51.0 L 411) MEAN CORPUSCULAR VOLUME (BEAKER) 100.0 fL 79.0-92.2 H (test code = 753) MEAN CORPUSCULAR HEMOGLOBIN 30.4 pg 25.7-32.2 (BEAKER) (test code = 751) MEAN CORPUSCULAR HEMOGLOBIN CONC 30.4 GM/DL 32.3-36.5 L (BEAKER) (test code = 752) RED CELL DISTRIBUTION WIDTH 18.1 % 11.6-14.4 H (BEAKER) (test code = 412) PLATELET COUNT (BEAKER) (test 179 K/CU MM 150-450 code = 756) MEAN PLATELET VOLUME (BEAKER) 9.2 fL 9.4-12.4 L (test code = 754) NUCLEATED RED BLOOD CELLS 0 /100 WBC 0-0 (BEAKER) (test code = 413) SARS-COV2/RT-PCR ([facility])2020-11-07 20:30:42 Test Item Value Reference Range Interpretation Comments SARS-COV2/RT-PCR (test code = Negative Negative [id number]) Negative result for this test determines that SARS-CoV-2 RNA was not present in the specimen above the Limit of Detection (LOD). However, Negative results do not preclude SARS-CoV-2 infection and should not be used as the sole basis for treatment or patient management decisions. Negative results must be combined with clinical observations, patient history, and epidemiological information. A false negative result may occur if a specimen is improperly collected, transported, or handled. A false negative result should be considered if patient's recent exposures or clinical presentation indicate that COVID-19 (SARS-CoV-2) is likely and diagnostic tests for other causes of illness are negative. Re-testing should be considered in cases of suspected false negatives.The limit of detection for this assay is 100 copies/mL.This SARS-CoV-2 test is a real-time RT_PCR test intended for the qualitative detection of [...] the FDA, the issued EUA will be e ffective until the declaration that circumstances exist justifying the authorization of the emergency use of in vitro diagnostic tests for detection and/or diagnosis of COVID-19 is terminated under Section 564(b)(2) of the Act or the EUA is revoked under Section 564(g) of the Act.Testing was performedusing the Pacheco SARS-CoV-2 assay.Fact Sheet for Healthcare Providers:https://www.[employer]/libby/RT SARS-CoV-2 HCP Fact Sheet 51- 115445.pdfFact Sheet for Healthcare Patients:https://www.[employer]/libby/RT SARS-CoV-2 Patient Fact Sheet EN 51-192118N4.pdfCBC W/PLT COUNT & AUTO [id number] 14:10:03 Test Item Value Reference Range Interpretation Comments WHITE BLOOD CELL COUNT (BEAKER) 9.4 K/ L 3.5-10.5 (test code = 775) RED BLOOD CELL COUNT (BEAKER) 3.36 M/ L 4.63-6.08 L (test code = 761) HEMOGLOBIN (BEAKER) (test code = 10.2 GM/DL 13.7-17.5 L 410) HEMATOCRIT (BEAKER) (test code = 33.5 % 40.1-51.0 L 411) MEAN CORPUSCULAR VOLUME (BEAKER) 99.7 fL 79.0-92.2 H (test code = 753) MEAN CORPUSCULAR HEMOGLOBIN 30.4 pg 25.7-32.2 (BEAKER) (test code = 751) MEAN CORPUSCULAR HEMOGLOBIN CONC 30.4 GM/DL 32.3-36.5 L (BEAKER) (test code = 752) RED CELL DISTRIBUTION WIDTH 18.4 % 11.6-14.4 H (BEAKER) (test code = 412) PLATELET COUNT (BEAKER) (test 185 K/CU MM 150-450 code = 756) MEAN PLATELET VOLUME (BEAKER) 9.2 fL 9.4-12.4 L (test code = 754) NUCLEATED RED BLOOD CELLS 0 /100 WBC 0-0 (BEAKER) (test code = 413) (CELLAVISION MANUAL DIFF)2020-11-07 14:10:03 Test Item Value Reference Range Interpretation Comments NEUTROPHILS - REL 71 % (CELLAVISION)(BEAKER) (test code = 2816) LYMPHOCYTES - REL 16 % (CELLAVISION)(BEAKER) (test code = 2817) MONOCYTES - REL 9 % (CELLAVISION)(BEAKER) (test code = 2818) EOSINOPHILS - REL 4 % (CELLAVISION)(BEAKER) (test code = 2819) NEUTROPHILS - ABS 6.67 K/ul 1.78-5.38 H (CELLAVISION)(BEAKER) (test code = 2830) LYMPHOCYTES - ABS 1.50 K/ul 1.32-3.57 (CELLAVISION)(BEAKER) (test code = 2831) MONOCYTES - ABS 0.85 K/uL 0.30-0.82 H (CELLAVISION)(BEAKER) (test code = 2832) EOSINOPHILS - ABS 0.38 K/uL 0.04-0.54 (CELLAVISION)(BEAKER) (test code = 2834) TOTAL COUNTED (BEAKER) (test code 100 = 1351) WBC MORPHOLOGY (BEAKER) (test Normal code = 487) PLT MORPHOLOGY (BEAKER) (test Normal code = 486) ANISOCYTOSIS (BEAKER) (test code 1+ few = 961) POIKILOCYTES (BEAKER) (test code 2+ moderate = 966) ARTIFACT (CELLAVISION)(BEAKER) Present (test code = 3432) PLATELET CONCENTRATION Decreased (CELLAVISION)(BEAKER) (test code = 3438) Janitorial Services Supervisor ID - Niurka Mahajan comments: Slide comments:BASIC METABOLIC [id number] 12:39:39 Test Item Value Reference Range Interpretation Comments SODIUM (BEAKER) 138 meq/L 136-145 (test code = 381) POTASSIUM (BEAKER) 4.3 meq/L 3.5-5.1 (test code = 379) CHLORIDE (BEAKER) 110 meq/L 98-107 H (test code = 382) CO2 (BEAKER) (test 20 meq/L 22-29 L code = 355) BLOOD UREA NITROGEN 27 mg/dL 7-21 H (BEAKER) (test code = 354) CREATININE (BEAKER) 1.40 mg/dL 0.57-1.25 H (test code = 358) GLUCOSE RANDOM 161 mg/dL 70-105 H (BEAKER) (test code = 652) CALCIUM (BEAKER) 8.9 mg/dL 8.4-10.2 (test code = 697) EGFR (BEAKER) (test 49 mL/min/1.73 ESTIMA VY GFR IS code = 1092) sq m NOT ACCURATE CREATININE CLEARANCE IN PREDICTING GLOMERULAR FILTRATION RATE . ESTIMATED GFR I S NOT APPLICABLE FOR DIALYSIS PATIEN TS. Janitorial Services Supervisor ID - SARBJIT MPROTHROMBIN TIME/[id number] 11:55:55 Test Item Value Reference Range Interpretation Comments PROTIME (BEAKER) 18.8 seconds 11.9-14.2 H (test code = 759) INR (BEAKER) (test 1.60 See_Comment [Automat ed message] code = 370) The system [employer] generated this result transmitted ref erence range: <=5.90. The reference range was not used to int erpret this result as normal/abnormal . RECOMMENDED COUMADIN/WARFARIN INR THERAPY RANGESSTANDARD DOSE: 2.0 - 3.0 Includes: PROPHYLAXIS forvenous thrombosis, systemic embolization; TREATMENT for venous thrombosis and/or pulmonary embolus.HIGH RISK: Target INR is 2.5-3.5 for patients with mechanical heart valves.RAD, FOOT, MIN 3 VIEWS, [id number] 14:28:00Reason for Exam:->STATUS POST AMPUTATION OF RIGHT GREAT TOEReason for Exam:->[facility] 1945 Sex: MFINAL REPORT Exam: Right foot three views History: Amputation Comparison: August 27, 2020 Findings: Amputation across the hallux MTP joint. Overlying soft tissue irregularity. Soft tissue swelling. No progressive erosive change of the metatarsal. Vascular calcifications. Small calcaneal enthesophytes. Impression: Amputation across the hallux MTP joint. No progressive osteomyelitis. Signed: Barbara Eubanks Verified Date/Time: 10/16/2020 14:28:01 Reading Location: [facility] Reading Room [address] [place] [address] Electronically signed by: Barbara Eubanks on 102:28 PMRAD, FOOT, MIN 3 VIEWS, [id number] 12:32:00Reason for Exam:->post-operative stateReason for Exam:->status post amputation of right great toe [facility] : 1945 Sex: MFINAL REPORT Exam: Right foot three views History: [...] Eubanks Verified Date/Time: 09/04/2020 12:32:23 Reading Location: [facility] Reading Room [address] [place] [address] XR foot 3 views [id number] 12:32:00Interface, External Ris In - 09/04/2020 12:34 PM CDTFINAL REPORT Exam: Right foot three views History: [...] osteomyelitis. Attention on follow-up. Signed: Barbara Eubanks MDReport Verified Date/Time: 09/04/2020 12:32:23 Reading Location: [facility] Reading Room [address] [place] [address] [facility] [id number] 16:35:00 Test Item Value Reference Range Interpretation Comments Case Report (test code Surgical Pathology = 104) Report Case: [id number] Authorizing Provider: Aleksandr Duong DPM Collected: 07/02/2020 01:10 PM Ordering Location: [facility] Received: 07/02/2020 01:28 PM SERVICES Pathologist: Nadine Butler MD Specimen: Toe, Right, right great toe DIAGNOSIS (test code = [id number] 3220) uZzEwMzNcZnRuYmpcdWMxIH tccnRmMVxlcGljOTIwMlxhb hZmKIZagBTlA6KargpqDIfh WN4sCU3ctFcdhFEwzACwRES wBwMtl6qvo848bVTds0ucUB QLgfwmxVh2yUefZ23jp3Z5X voaQ07mrXKjTXlbuHFrchap yuQdFQZBL7UnYGWTC7rTSYq PFQkUCLmcEW9IQGQSGNfBTk ecsWVrWH4fF8KAZ8LVGkFeF N9DV1fADX2RCFWXUW1dFW3N HNWGQzHxVIuWK4GYNBWfupL wGSGNTxXuY9cQHMHILzWZHk 2PPdBYQXBPUXBHUC9GS4PQV 0lTXHBhciAtIFNPRlQgVElT X8PBNHFIIHKWYXZRABZBQB6 mNN5KS5gJHAAkJygbYO6TKF HBKRRCF7XSGDABW7JUQ4Vyu UBoTT6jEFMLSRUFOICDIHAX UlRJTEFHRSBBVCBUSEUgTUF NQ5mJNQKYYiCXMUJVO1IDVE CbbYJnGU0dEzIZMGOWPzXfZ n4JDR6SXYpIReEYB5pmwXOx MHPfug97JHR8IsZuk5V9DLN 3RHCyVSXsl3hdTWXhhHRxOa EwMzNcZnRuYmpcdWMxXGRlZ aJfk3dsd131pXFrt6dfHVMu OqM8xCFeCMBpvZPhZ646ZHK xMIrmj2kvb0YnKMVxnTCae8 J4SJEMbqtfaBg9hDslC87tc 8U3RfwmP0hoEFCkPPCzS8Dn FA4eLBFlLhx4ZYB8THO8XDS sKJEvP9FiOB9dFGKbnMShLH v3e2ogmAjzQUKjLDD5h8zrM VkchxHeCK0kzh0mjMg0j1dy oxSrXRHgQTXaqCJEOUYoM1E mgKmaPp3uhVv6tTntNynmZE S2Aza8UA4mdz52nrz1cKqcE VKbysndWwO2ZVtgNIYmpsbj EMj5UMfmXCYyaGR0HKNlvEI dF0XvWWKlPB4azik8KZE3VW rxHPCrOxP9KXKnkEUkCRBqj PaiWTczz478GGK3CwNuOH1j L6Zwv4F0oI3vhUYzEQPvxWS iRyPcOCYtgi9mdRQoVOfqm7 TbDVW3ngY6vIRarSUnTJYaL sY6XSrtJQ3wzv31MVPhEQQ4 xu4ewIAdzYvuyrAcyENfHPe bF4DzPDAwq472RYAqO1PyOZ Hoq9N3auUnNkImKANneZI1s gA0XNEmZU9lmigdk3zvKZad XCtqNOHjxuZ5uhI1CMLjqOB qF0CafY5vEOQzXI2dhjiks7 znWLK8BWixMXJqSRU4VsIcU PRkr3Yprxv2NrFzg9JblWLf XDwzQ22gz705DMTlyeHyV4y wbGFpblxwbGFpblxmMFxmcz J2HQNjILuvzalrKOAwPKseB 0kpIsSdIVXwiZgrTGptk4Ex XGYxXGZzMjJcdGFiXHRhYlx 9QIMrfTBaPNPdLvKmI9gvis srJfSPRSOwp7yuO6ocqVABl NKxK3LsXIrhhrIvSKcoROxs CYPvFPY6CT22KUU4PLZpfr5 9 CPT Code(s) (test code r5zjmAPeJIEcrMM6JyUbLHZ = 3357) wc3rdq0IsuUPekOPdYSldeZ QbsuExpn89cIM2wW15UO9hE HJzMeC6MREtgqF8Cjg7YTLq ZCRsjVWaO670m7rzm8mhjkN isHZ0eYygLYBnLRPcJHoeHA NfBrMwHOlbHZE5OLv9OfTxW HBhcn0= CLINICAL HISTORY (test j1mbaMHnKKCmeXV4PrMeKEK code = 3356) iz9gtw5LovNFujRGjLKtaqQ IjnsAbtx67rBR9xO38TE6hW GJnPhT8XINtsuX6Nwy5EJIz UNUzzORlQ276r1alz7jtnhA ypHK5xXmvDIEaGWFzLLwaDI NjWgLcC9BaG2LpygGpkZBjf Q== SPECIMEN SOURCE (test h5uhuLLiAFSdrZB2QgNgGMF code = 3377) aw7jsv7UmvMDghZDzOQpbzA VudwWnhi78tTG5rO85GR4sG FOuQyT8WTHukfW8Fgk2HCVm CAVqtXQoW480v7xhd7amkaA euHF4eNqrNNCpFXBsDXqmMU HbHvMiHO2kZIIszDprxJuzL XJ9 GROSS DESCRIPTION g6tggEUfDXLsvBVvDdCcZQW (test code = 3366) uOSFsa4dlGVDkwQXzPxSvMa NcZnRuYmpcdWMxXGRlZmYwe 7evl423yIQjf3ekSZVhFnC1 jOVrALPldDRuI254b7ofy2l ulxNreSP6CSLoUOI3XIamnu NsmwJ3TNqgyFXvCfJ2SFbif tAtRVbcuzWimmMrQjm3WYFe K564LPL0yWlys0akKZJ1ECE oKTMiUjWjPn1odWGuV942JV QxIZVTQUAerQb9XTEeapGni iYbfUCIt442R655d6ocMTVy tpWadXcIwcugl7bxB902JRO hcGVydzEyMjQwXHBhcGVyaD M3BIBfRP7kbvpoPmSbBA3tp pvgAsRmQI2ljkr5CeGfPQ9k cmdiNzIwXGhlYWRlcnkwXGZ tr0BksvrdSD5iX3Gnp7W9fL 9maXRcZGVmdGFiNzIwXGZvc t3ctLSiJLklh1GdIIG0xiZ9 uFXevGUgQECkYX45Qnito4J uGzrsBBR3TTYefqKzn3Osb8 qwWmSizvFmV3jyJ4YlEZQaI MImNNPmQgNlopNkh8Row2My cWEobOf1o4jeHLYnOQSrgAh vd8muUIR8EUQlG6X2nABhp9 msPFapOHXdwSJ3oeuzZEvyC GVcesY2gkvxJNfkGIHsnIV8 oaomVDgfFPHtSgR0jdqtOUb jDVIkVGW4SQdes801WFC2PB xzYmtwYWdlXHBnbmNvbnRcc GduZGVjXHBsYWluXHBsYWlu XGYwXGZzMjRccWxccGxhaW5 yAxBoSpZdGYdbBY8kRULxQ0 tktNOhOLWbYPLuI8yjLwIjy I9biEhwKInyohLwOLTiLYIq C5RbrkThPCRqMFGrILotNbN uZWIft8y4oMD7yGXcmXI4vD FslImoTaUkPW6ysJIhHQ4sA FtpJVegvqDoz2YqCT03oKDw ciBhbmQgInRvZSwgcmlnaHQ nWYvhMBRtYEfnZOG5fDS2gB X2OMGmrA3yCM8eCNR7oyfbO vD9AdIoV06zlX8myYGfA3Ur IGFuZCAzIGNtIGluIGRpYW1 ldGVyLiAgVGhlcmUgaXMgYS Tab94oMDc3QOS8tHDnnTWbI IA0vUuef7RaWMUcVHPgra38 RUoqx0wdlX6xaAxlOnOuRCg xUZzskCZhHCkkd9UeNuGnYG BueXLkhXT5lrIhVQHruMMhQ vgggKGsItKtU90uI0FbI3Aw du84mcT5kODyqmBbt5AqgPY hLONhJdVvnHJqmh7eQTLyDZ Pyv5awDD0dsubkiqFqqyLdQ LPiwFMroz4uESQdPOKeoKNb njXiR5DbHEXyXUGoz89iKoO aLEahasTuzGKfPV8mQXL0ll ZidcHmED5ntY71EB9mGRJym O4lETncF33cz5MrrNhcbkX6 gKNaODUubBKkGWwnESE0anM kpC5zxH2sFABuZOL1tBFwvr 9tVEEzQTA1iyZjdlo0lS6rJ GJvbmUgaXMgcmVkIGFuZCBo CE6tlgQtYNqsVvzoCH1xPWS 2rDDeZLBiuXy3CPuewCypEO UvJ3JaiXXxUEToOEMsCpFxD yHbccQuWN77XSZpjkIwx6Wc nQwswmZjJSRoMRF8Dh0cbSY rQQ6fxINqMLEkfwCAZTA5hJ 0iKDPwHKS5UMJcccHXVDmmL RseAHQueQ9vgYjjDPYzv7Pb r0Poy3xcdkWnHOCyhE6fYSR clZKlSBAxPISuVH5seKB9sD QzPJZmC5Lkl70cBAfciHriw P4kKCUsbRwdKpVvx32mHSGq p6mqe5bzvrhnCLGmTRklaIU nA7P0iN9zHCYjhlMAUgslFA fuCBJ6yIN8xRQ4OXQdWY1yZ F3yLYLdgqCaXXOgYQIsH5Uh YOTbtDoad9kmVjIyMOEwuKR jWvzeEXSes79cjFSkRSHnqz POtBIiw7KsAWpnUEPjTJGID XItJZFEDTrUD3EQFGWnMJDd cn0= MICROSCOPIC z2ensMKfMGJtsMM4RzHfIBT DESCRIPTION (test code ov4pes9LytOWywLCfUDbvkC = 3371) DwjbUoll28hGW9aT89XE4bT PNjMtB9NDQwldJ2Ujj4QKOh OGTcjHObQ696p8vqu1bdvuB vcXE7nFemVBFtVTRqEVlmYX BeHmXcPMARVz9RHEJRCGBth n0= [facility] [id number] 16:35:00Surgical Pathology Report Case: [id number] Authorizing Provider: Aleksandr Duong DPM Collected: 07/02/2020 01:10 PM Ordering Location: [facility] Received: 07/02/2020 01:28 PM SERVICES Pathologist: Nadine Butler MD Specimen: Toe,Right, right great toe FOOT, RIGHT HALLUX, AMPUTATION:- GANGRENE INVOLVING SKIN AND SOFT TISSUE- BONE WITH INTER-TRABECULAR NECROSIS- SOFT TISSUE AT THE MARGIN INVOLVED BY INFLAMMATORY PROCESS- ARTICULAR CARTILAGE AT THE MARGIN, UNREMARKABLE- NEGATIVE FOR MALIGNANCY Signing Pathologist Direct Phone Line: [phone] signed by Nadine Butler MD on 07/30/2020 at 4:35 [id number]; [id number], rightA. Received fresh labeled with the patient's [...] and cuts easily with a scalpel blade. Title I Teacher sections are submitted.Section code:A1: Ulcer to the closest skin margin (blue), perpendicular sections with underlying bone, following decalcificationA2: Disarticulated end of bone, en face, following decalcificationChelsea BRIANNA Medina PA ([facility])cmPERFORMEDCARDIAC CATH REPORT - [id number] 10:37:11Ordered by an unspecified provider.[facility] [id number] 11:15:00 Test Item Value Reference Range Interpretation Comments POC-Glucose Meter (test 283 mg/dL 70-110 H : TE STED AT [facility] code = 1538) [address] [place], [address]: Janitorial Services Supervisor/Techni heather ID = [id number] for ERICKSON LEIJA EM Lab Interpretation (test Abnormal code = 72254-8) [facility]SE [id number] 11:15:00 Test Item Value Reference Range Interpretation Comments POC-GLUCOSE METER 283 mg/dL 70-110 H : TESTED A T [facility] 6720 (BEAKER) (test code = [facility] [facility], 1538) [address]: Janitorial Services Supervisor/Techni heather ID = [id number] for IB LIN DAVIS CBC with platelet count + automated [id number] 08:27:00 Test Item Value Reference Range Interpretation Comments WBC (test code = 6690-2) 15.3 See_Comment H [A utomated message] The system [employer] generated this result transmitted ref erence range: 3.5 - 10 .5 K/L. The refe rence range was not u sed to interpret this result as normal/abnor mal. RBC (test code = 789-8) 2.98 See_Comment L [Au tomated message] The system [employer] generated this result transmitted ref erence range: 4.63 - 6 .08 M/L. The refe rence range was not u sed to interpret this result as normal/abnor mal. MCHC (test code = 786-4) 31.1 See_Comment L [A utomated message] The system [employer] generated this result transmitted ref erence range: [...] code = 154 See_Comment [Aut omated message] 207-3) The system [employer] generated this result transmitted ref erence range: 150 - 45 0 K/CU MM. The referen ce range was not u sed to interpret this result as normal/abnor mal. MPV (test code = 9.2 fL 9.4-12.4 L 80690-2) nRBC (test code = 413) 0 See_Comment [Aut omated message] The system [employer] generated this result transmitted ref erence range: 0 - 0 /1 00 WBC. The refere nce range was not u sed to interpret this result as normal/abnor mal. Lab Interpretation (test Abnormal code = 97835-3) [facility] [id number] 08:27:00 Test Item Value Reference Range Interpretation Comments % Neutros (test code = 73 % 2816) % Lymphs (test code = 11 % 2817) % Monos (test code = 10 % 2818) % Eos (test code = 2819) 4 % % Myelo (test code = 1 % 0-0 H 2822) % Promyelo (test code = 1 % [...] = 3438) CACHORRO (test code = CACHORRO) Janitorial Services Supervisor ID - Irena Chen comments: Slide comments: Lab Interpretation (test Abnormal code = 44693-8) [facility] & AUTO [id number] 08:27:00 Test Item Value Reference Range Interpretation [...] CONCENTRATION Adequate (CELLAVISION)(BEAKER) (test code = 3438) Janitorial Services Supervisor ID - Irena Chen comments: Slide comments:POCT-GLUCOSE METER 2020-07-05 08:06:00 Test Item Value Reference Range Interpretation Comments POC-GLUCOSE METER 149 mg/dL 70-110 H : TESTED A T [facility] 6720 (BEAKER) (test code = [place], 1538) [address]: Janitorial Services Supervisor/Techni heather ID = [id number] for IB KATARINAM, PALMERLEM Basic Metabolic [id number] 04:49:00 Test Item Value Reference Range Interpretation Comments Sodium (test code = 138 meq/L 995-970 6063-2) Potassium (test code = 4.0 meq/L 3.5-5.1 2823-3) Chloride (test code = 107 meq/L 98-107 2075-0) CO2 (test code = 21 meq/L 22-29 L 2027-9) BUN (test code = 18 mg/dL 7-21 3094-0) Creatinine (test code 1.38 mg/dL 0.57-1.25 H = 2160-0) Glucose (test code = 161 mg/dL 70-105 H 2345-7) Calcium (test code = 8.8 mg/dL 8.4-10.2 62519-3) EGFR (test code = 50 mL/min/1.73 [place] [address]-6) NOT ACCURATE CREATININE CLEARANCE IN PREDICTING GLOMERULAR FILTRATION RATE . ESTIMATED GFR I S NOT APPLICABLE FOR DIALYSIS PATIENTS. CACHORRO (test code = CACHORRO) Janitorial Services Supervisor ID - HIWOT L Lab Interpretation Abnormal (test code = 50286-0) [facility] METABOLIC [id number] 04:49:00 Test Item Value Reference Range Interpretation [...] S NOT APPLICABLE FOR DIALYSIS PATIEN TS. Janitorial Services Supervisor ID - HIWOT LPOCT-GLUCOSE [id number] 21:36:00 Test Item Value Reference Range Interpretation Comments POC-GLUCOSE METER 167 mg/dL 70-110 H : TESTED A T [facility] 6720 (BEAKER) (test code = [place], 1538) [address]: Janitorial Services Supervisor/Techni heather ID = [id number] for Raghu barone (pca2)[place] POCT-GLUCOSE [id number] 17:51:00 Test Item Value Reference Range Interpretation Comments POC-GLUCOSE METER 156 mg/dL 70-110 H : Notified RN/MD: (BEAKER) (test code = TESTED AT [facility] 6722 1403) [facility], [address]: Janitorial Services Supervisor/Techni heather ID = [id number] for Marj Watts (CELLAVISION MANUAL DIFF)2020-07-04 15:55:00 [...] CONCENTRATION Adequate (CELLAVISION)(BEAKER) (test code = 3438) Janitorial Services Supervisor ID - Juana Astudillo comments: Slide comments:BASIC [...] S NOT APPLICABLE FOR DIALYSIS PATIEN TS. Janitorial Services Supervisor ID - DBCBC W/PLT COUNT & AUTO [id number] 15:17:00 Test Item Value Reference Range Interpretation [...] WBC 0-0 (BEAKER) (test code = 413) [id number] 12:36:00 Test Item Value Reference Range Interpretation Comments PTT (test code = 102.6 See_Comment H [Automated message] 98414-0) The system [employer] generated this result transmitted ref erence range: 22.5 - 3 6.0 seconds. The reference range was not used to int erpret this result as normal/abnormal . Lab Interpretation (test Abnormal code = 62228-2) [facility] 12:36:00 Test Item Value Reference Range Interpretation Comments PARTIAL THROMBOPLASTIN TIME 102.6 seconds 22.5-36.0 H (BEAKER) (test code = 760) POCT-GLUCOSE [id number] 12:25:00 Test Item Value Reference Range Interpretation Comments POC-GLUCOSE METER 212 mg/dL 70-110 H : TESTED A T [facility] 6720 (BEAKER) (test code = [facility], 1538) [address]: Janitorial Services Supervisor/Techni heather ID = [id number] for Marj Watts POCT-GLUCOSE [id number] 07:39:00 Test Item Value Reference Range Interpretation Comments POC-GLUCOSE METER 162 mg/dL 70-110 H : TESTED A T [facility] 6720 (BEAKER) (test code = [facility], 153) 54053: Janitorial Services Supervisor/Techni heather ID = [id number] for MCKINLEY ERICKSONEMANI [id number] 05:06:00 Test Item Value Reference Range Interpretation Comments PARTIAL THROMBOPLASTIN TIME 64.8 seconds 22.5-36.0 H (BEAKER) (test code = 760) [id number] 23:50:00 Test Item Value Reference Range Interpretation Comments PARTIAL THROMBOPLASTIN TIME 59.1 seconds 22.5-36.0 H (BEAKER) (test code = 760) POCT-GLUCOSE [id number] 21:25:00 Test Item Value Reference Range Interpretation Comments POC-GLUCOSE METER 156 mg/dL 70-110 H : TESTED A T [facility] 6720 ([facility]) (test code = [facility], 1538) 920[address]: Janitorial Services Supervisor/Techni heather ID = [id number] for LEVON LEE POCT-GLUCOSE [id number] 17:25:00 Test Item Value Reference Range Interpretation Comments POC-GLUCOSE METER 162 mg/dL 70-110 H : Notified RN/MD: ([facility]) (test code = TESTED AT [place] [address] 1538) [facility], [address]: Janitorial Services Supervisor/Techni heather ID = [id number] for Marj Watts [id number] 15:41:00 Test Item Value Reference Range Interpretation Comments PARTIAL THROMBOPLASTIN TIME 46.0 seconds 22.5-36.0 H (BEAKER) (test code = 760) [id number] 15:13:00 Test Item Value Reference Range Interpretation Comments PARTIAL THROMBOPLASTIN TIME > seconds 22.5-36.0 HH (BEAKER) (test code = 760) POCT-GLUCOSE [id number] 12:24:00 Test Item Value Reference Range Interpretation Comments POC-GLUCOSE METER 166 mg/dL 70-110 H : TESTED A T [facility] 6720 ([facility]) (test code = [facility], 1538) 669[address]: Janitorial Services Supervisor/Techni heather ID = [id number] for LEVON LEE SARS-CoV2/RT-PCR (Asymptomatic ONLY)2020-07-03 08:16:00 Test Item Value Reference Range Interpretation Comments SARS-COV2/RT-PCR Negative Not Detected, (test code = Negative, See 74424-5) external report for linked test SARS-COV-2 [facility] PERFORMING LAB (test code = 00290-8) CACHORRO (test code = Negative results do [...] of the Act. Fact Sheet for Healthcare Providers:https://www.Dr[employer]/Documents/Xper t%20Xpress%20SARS%20CoV- 2/Fact%20Sheets/3023802 %58NIQL-JIT-5%20HEALTHCA RE%20PROVIDERS%20FACT%20 SHEET.pdf Fact Sheet for Healthcare Patients:https://www.Rpptrip.com.KoolSpan/Documents/Xpert %20Xpress%20SARS%20CoV-2 /Fact%20Sheets/302-3801% 58EZVM-TTG-7%20PATIENT%2 0FACT%20SHEET.pdf Performing Laboratory:[facility] [place] [address] [facility])2020-07-03 08:16:00 Test Item Value Reference Range Interpretation Comments SARS-COV2/RT-PCR (test code Negative Not Detected, Negative, = 4014483) See external report for linked test SARS-COV-2 PERFORMING LAB [facility] (test code = 6566556) Negative results do not preclude SARS-CoV-2 infection [...] of the Act.Fact Sheet for Healthcare Pro viders:https://www.Art [employer]ified/Documents/Xpert%20Xpress%20SARS%20CoV-2/Fact%20Sh eets/302-3802%07AYQA-GWT-6%20HEALTHCARE%20PROVIDERS%20FACT%20SHEET.pdfFact Sheet for Healthcare Patients:https://www.iTOK/Documents/Xpert%20Xpress%20SARS%20CoV-2/Fact%20Sheets/302-3801%20SARS-COV -2%20PATIENT%20FACT%20SHEET.pdfPerforming Laboratory:[facility], [place] [address]DRKZ-YXZGMOS [id number] 08:12:00 Test Item Value Reference Range Interpretation Comments POC-GLUCOSE METER 152 mg/dL 70-110 H : TESTED A T [facility] 6720 (BEAKER) (test code = [facility], 1538) 301[address]: Janitorial Services Supervisor/Techni heather ID = [id number] for LEVON LEE BASIC METABOLIC [id number] 05:19:00 Test Item Value Reference Range Interpretation [...] S NOT APPLICABLE FOR DIALYSIS PATIEN TS. Janitorial Services Supervisor ID - TUSHAR [id number] 04:52:00 Test Item Value Reference Range Interpretation Comments PARTIAL THROMBOPLASTIN TIME 37.1 seconds 22.5-36.0 H (BEAKER) (test code = 760) CBC (Hemogram only)2020-07-03 04:41:00 Test Item Value Reference Range Interpretation Comments WBC (test code = 6690-2) 14.4 See_Comment H [A utomated message] The system [employer] SARL generated this result transmitted ref erence range: 3.5 - 10 .5 K/L. The refe rence range was not u sed to interpret this result as normal/abnor mal. RBC (test code = 789-8) 2.85 See_Comment L [Au tomated message] The system [employer] generated this result transmitted ref erence range: 4.63 - 6 .08 M/L. The refe rence range was not u sed to interpret this result as normal/abnor mal. MCHC (test code = 786-4) 31.6 See_Comment L [A utomated message] The system [employer] generated this result transmitted ref erence range: [...] See_Comment [Aut omated message] 777-3) The system [employer] generated this result transmitted ref erence range: 150 - 45 0 K/CU MM. The referen ce range was not u sed to interpret this result as normal/abnor mal. MPV (test code = 9.0 fL 9.4-12.4 L 21038-8) nRBC (test code = 413) 0 See_Comment [Aut omated message] The system [employer] generated this result transmitted ref erence range: 0 - 0 /1 00 WBC. The refere nce range was not u sed to interpret this result as normal/abnor mal. Lab Interpretation (test Abnormal code = 61000-7) [facility] (HEMOGRAM ONLY)2020-07-03 04:41:00 Test Item [...] 0-0 (BEAKER) (test code = 413) SARS-COV2/RT-PCR ([facility])2020-07-02 20:04:00 Test Item Value Reference Range Interpretation Comments SARS-COV2/RT-PCR (test Negative Not Detected, Negative, code = 5151076) See external report for linked test SARS-COV-2 PERFORMING LAB [facility] OLIVERIO (test code = 9489440) Negative result for this test determines that [...] of the Act.Testing was performed using the Ensa SARS-CoV-2 assay.Fact Sheet for Healthcare Providers:https://www.Tesco.aPriori Technologies/libby/ HP_BREY-ZgO-8_ASS_Ybzr_Xjurh_53-189659.pdfFact Sheet for Healthcare Patients:https://www.Tesco.ab dario/libby/AE_KOXZ-HhT-3_Ybnsjpr_Ziyt_Hictc_JF_22-948272T0.pdfPerforming Laboratory:[facility] [place] [address] POCT-GLUCOSE [id number] 17:56:00 Test Item Value Reference Range Interpretation Comments POC-GLUCOSE METER 155 mg/dL 70-110 H : TESTED A T [facility] 6720 (BEAKER) (test code = [facility] Mandi [facility], 1538) 9[address]: Janitorial Services Supervisor/Techni heather ID = [id number] for Jazmin Hu POCT-GLUCOSE [id number] 17:55:00 Test Item Value Reference Range Interpretation Comments POC-GLUCOSE METER 166 mg/dL 70-110 H : TESTED A T [facility] 6720 (BEAKER) (test code = [facility], 1538) 0[address]: Janitorial Services Supervisor/Techni heather ID = [id number] for Jazmin Hu CBC (HEMOGRAM ONLY)2020-07-02 17:45:00 [...] (BEAKER) (test code = 413) Vancomycin level, [id number] 16:47:00 Test Item Value Reference Range Interpretation Comments Vancomycin Rm (test 9.9 ug/mL code = 70114-1) CACHORRO (test code = Reference Range: No CACHORRO) NormalsOperator ID - [facility] HospitalVANCOMYCIN LEVEL, [id number] 16:47:00 Test Item Value Reference Range Interpretation Comments VANCOMYCIN RANDOM (BEAKER) (test 9.9 ug/mL code = 523) Reference Range: No NormalsOperator ID - BSPOCT-GLUCOSE [id number] 14:40:00 Test Item Value Reference Range Interpretation Comments POC-GLUCOSE METER 167 mg/dL 70-110 H : [facility] (BEAKER[facility] (test code = [place] 15[place]) [address]: Janitorial Services Supervisor/Techni heather ID = [id number] for ANGIE WHEELER RK ECG 12 [id number] 13:53:08Interface, External Ris In - 07/02/2020 1:53 PM CDTVentricular Rate 70 BPMAtrial Rate 76 BPMQRS Duration 114 msQ-T Interval 416 msQTC Calculation(Bazett) 449 msR Leiter 2 degreesT Leiter -[address] and T wave abnormalityAbnormal ECGWhen compared with ECG of 30-JAN-2017 01:13,ST less depressed in Anterior leadsT wave inversion no longer evident in Anterolateral leadsConfirmed by MD Morocho Roberto ([id number]) on 07/02/2020 1:53:05 [facility] & AUTO [id number] 09:24:00 Test Item Value Reference Range Interpretation [...] CONCENTRATION Adequate (CELLAVISION)(BEAKER) (test code = 3438) Janitorial Services Supervisor ID - Niurka Mahajan comments: Slide comments:POCT-GLUCOSE METER 2020-07-02 08:29:00 Test Item Value Reference Range Interpretation Comments POC-GLUCOSE METER 162 mg/dL 70-110 H : TESTED A T [facility] 6720 (BEAKER) ([facility] = [facility], 1538) [address]: Janitorial Services Supervisor/Techni heather ID = [id number] for Ra chapa Jazimn [id number] 05:08:00 Test Item Value Reference Range Interpretation Comments PARTIAL THROMBOPLASTIN TIME 65.4 seconds 22.5-36.0 H (BEAKER) (test code = 760) [id number] 03:17:00 Test Item Value Reference Range Interpretation Comments PARTIAL THROMBOPLASTIN TIME 128.2 seconds 22.5-36.0 H (BEAKER) (test code = 760) BASIC METABOLIC [id number] 03:15:00 Test Item Value Reference Range Interpretation [...] S NOT APPLICABLE FOR DIALYSIS PATIEN TS. Janitorial Services Supervisor ID - SARBJIT MPOCT-GLUCOSE [id number] 00:03:00 Test Item Value Reference Range Interpretation Comments POC-GLUCOSE METER 183 mg/dL 70-110 H : TESTED A T [facility] 6720 (BEAKER) (test code = [facility], 1538) 25196: Janitorial Services Supervisor/Techni heather ID = [id number] for Jazmine Herb Manzanares [id number] 18:14:00 Test Item Value Reference Range Interpretation Comments PARTIAL THROMBOPLASTIN TIME 71.0 seconds 22.5-36.0 H (BEAKER) (test code = 760) POCT-GLUCOSE [id number] 17:03:00 Test Item Value Reference Range Interpretation Comments POC-GLUCOSE METER 259 mg/dL 70-110 H : TESTED A T [facility] 6720 (BEAKER) (test code = [facility], 1538) 08661: Janitorial Services Supervisor/Techni heather ID = [id number] for MALIHA HANNAH [id number] 15:30:00 Test Item Value Reference Range Interpretation Comments PARTIAL THROMBOPLASTIN TIME > seconds 22.5-36.0 HH (BEAKER) (test code = 760) Blood Culture - Routine (Left Venipuncture)2020-07-01 14:01:00 Test Item Value Reference Range Interpretation Comments Result (test code = No growth in 5 days 6463-4) [facility] [id number] 14:01:00 Test Item Value Reference Range Interpretation Comments CULTURE (BEAKER) (test No growth in 5 days code = 1095) BLOOD [id number] 14:01:00 Test Item Value Reference Range Interpretation Comments CULTURE (BEAKER) (test No growth in 5 days code = 1095) BLOOD [id number] 14:01:00 Test Item Value Reference Range Interpretation Comments CULTURE (BEAKER) (test No growth in 5 days code = 1095) POCT-GLUCOSE [id number] 12:17:00 Test Item Value Reference Range Interpretation Comments POC-GLUCOSE METER 225 mg/dL 70-110 H : TESTED A T [facility] 6720 (BEAKER) (test code = [place], 1538) [address]: Janitorial Services Supervisor/Techni heather ID = [id number] for AN MALIHA CARBALLO Hepatic function [id number] 10:07:00 Test Item Value Reference Range Interpretation Comments Protein, Total (test 7.0 See_Comment [Autom ated code = 2885-2) message] The system which generated this result transmit vy reference range : 6.0 - 8.3 gm/dL . The reference range was not u sed to interpret th is result as normal/abnormal . Albumin (test code = 3.2 g/dL 3.5-5 L 59697-8) Total Bilirubin (test 0.5 mg/dL 0.2-1.2 code = 1975-2) Bilirubin, Direct 0.3 mg/dL 0.1-0.5 (test code = 1968-7) Alkaline Phosphatase 110 U/L 40-150 (test code = 6768-6) AST (test code = 15 U/L 5-34 1920-8) ALT (test code = 10 U/L 6-55 1742-6) CACHORRO (test code = CACHORRO) Janitorial Services Supervisor ID - NIURKA Isidro Lab Interpretation Abnormal (test code = 87776-0) [facility]AT[facility] FUNCTION [id number] 10:07:00 Test Item Value Reference Range Interpretation [...] (test code = 10 U/L 6-55 347) Janitorial Services Supervisor ID - VERONA FCBC W/PLT COUNT & AUTO [id number] 09:53:00 Test Item Value Reference Range Interpretation [...] Adequate (CELLAVISION)(BEAKER) (test code = 3438) POCT-GLUCOSE [id number] 07:36:00 Test Item Value Reference Range Interpretation Comments POC-GLUCOSE METER 167 mg/dL 70-110 H : Notified RN/MD: (BEAKER) (test code = TESTED AT [facility] 9338 8105) [facility], [address]: Janitorial Services Supervisor/Techni heather ID = [id number] for AN MALIHA CARBALLO BASIC METABOLIC [id number] 06:45:00 Test Item Value Reference Range Interpretation [...] S NOT APPLICABLE FOR DIALYSIS PATIEN TS. Janitorial Services Supervisor ID - NIURKA FVANCOMYCIN LEVEL, [id number] 06:33:00 Test Item Value Reference Range Interpretation Comments VANCOMYCIN RANDOM (BEAKER) (test 18.8 ug/mL code = 523) Reference Range: No NormalsOperator ID - SARBJIT [id number] 06:18:00 Test Item Value Reference Range Interpretation Comments PARTIAL THROMBOPLASTIN TIME 39.9 seconds 22.5-36.0 H (BEAKER) (test code = 760) POCT-GLUCOSE [id number] 00:26:00 Test Item Value Reference Range Interpretation Comments POC-GLUCOSE METER 170 mg/dL 70-110 H : [facility] (test code = [facility], 1538) [address]: Janitorial Services Supervisor/Techni heather ID = [id number] for DYLAN OLSON [id number] 23:56:00 Test Item Value Reference Range Interpretation Comments PARTIAL THROMBOPLASTIN TIME 47.5 seconds 22.5-36.0 H (BEAKER) (test code = 760) [id number] 16:30:00 Test Item Value Reference Range Interpretation Comments PARTIAL THROMBOPLASTIN TIME 51.2 seconds 22.5-36.0 H (BEAKER) (test code = 760) [id number] 14:32:00 Test Item Value Reference Range Interpretation Comments PARTIAL THROMBOPLASTIN TIME 187.8 seconds 22.5-36.0 HH (BEAKER) (test code = 760) [id number] 13:55:00 Test Item Value Reference Range Interpretation Comments PARTIAL THROMBOPLASTIN TIME > seconds 22.5-36.0 HH (BEAKER) (test code = 760) POCT-GLUCOSE [id number] 12:13:00 Test Item Value Reference Range Interpretation Comments POC-GLUCOSE METER 207 mg/dL 70-110 H : TESTED A T [facility] 6720 (BEAKER) (test code = [place], 1538) [address]: Janitorial Services Supervisor/Techni heather ID = [id number] for LADARIUS HOWELL CBC W/PLT COUNT & AUTO [id number] 09:36:00 Test Item Value Reference Range Interpretation [...] CONCENTRATION Decreased (CELLAVISION)(BEAKER) (test code = 3438) Janitorial Services Supervisor ID - Magi Esposito comments: Slide comments:POCT-GLUCOSE METER 2020-06-30 08:19:00 Test Item Value Reference Range Interpretation Comments POC-GLUCOSE METER 162 mg/dL 70-110 H : TESTED A T [facility] 6720 (BEAKER) (test code = [place], 1538) [address]: Janitorial Services Supervisor/Techni heather ID = [id number] for EMANI DELGADO [id number] 07:46:00 Test Item Value Reference Range Interpretation Comments PARTIAL THROMBOPLASTIN TIME 76.8 seconds 22.5-36.0 H (BEAKER) (test code = 760) BASIC METABOLIC [id number] 07:03:00 Test Item Value Reference Range Interpretation [...] S NOT APPLICABLE FOR DIALYSIS PATIEN TS. Janitorial Services Supervisor ID - SARBJIT MVANCOMYCIN LEVEL, [id number] 06:09:00 Test Item Value Reference Range Interpretation Comments VANCOMYCIN RANDOM (BEAKER) (test 25.1 ug/mL code = 523) Reference Range: No NormalsOperator ID - SARBJIT [id number] 00:42:00 Test Item Value Reference Range Interpretation Comments PARTIAL THROMBOPLASTIN TIME 68.8 seconds 22.5-36.0 H (BEAKER) (test code = 760) [id number] 22:14:00 Test Item Value Reference Range Interpretation Comments PARTIAL THROMBOPLASTIN TIME 124.8 seconds 22.5-36.0 H (BEAKER) (test code = 760) POCT-GLUCOSE [id number] 21:06:00 Test Item Value Reference Range Interpretation Comments POC-GLUCOSE METER 183 mg/dL 70-110 H : TESTED A T [facility] 6720 (BEAKER) (test code = [facility], 1538) [address]: Janitorial Services Supervisor/Techni heather ID = [id number] for Loredo Penelope chang POCT-GLUCOSE [id number] 17:21:00 Test Item Value Reference Range Interpretation Comments POC-GLUCOSE METER 190 mg/dL 70-110 H : TESTED A T [facility] 6720 (BEAKER) (test code = [facility], 1538) [address]: Janitorial Services Supervisor/Techni heather ID = [id number] for EMANI DELGADO [id number] 14:11:00 Test Item Value Reference Range Interpretation [...] 0-0 (BEAKER) (test code = 413) POCT-GLUCOSE [id number] 12:21:00 Test Item Value Reference Range Interpretation Comments POC-GLUCOSE METER 185 mg/dL 70-110 H : TESTED Javi Arizmendi [facility] 6720 (BEAKER) (test code = [place] 1538) [address]: Janitorial Services Supervisor/Techni heather ID = [id number] for CA STRO, EMANI CBC W/PLT COUNT & AUTO [id number] 10:14:00 Test Item Value Reference Range Interpretation [...] CONCENTRATION Adequate (CELLAVISION)(BEAKER) (test code = 3438) Janitorial Services Supervisor ID - Raven Ledesma comments: Slide comments:POCT-GLUCOSE METER 2020-06-29 08:10:00 Test Item Value Reference Range Interpretation Comments POC-GLUCOSE METER 148 mg/dL 70-110 H : TESTED A T [facility] 6720 (BEAKER) (test code = [place], 1538) [address]: Janitorial Services Supervisor/Techni heather ID = [id number] for CA EMANI ALMENDAREZ [id number] 07:22:00 Test Item Value Reference Range Interpretation Comments Magnesium (test code = 1.6 mg/dL 1.6-2.6 18396-7) CACHORRO (test code = CACHORRO) Janitorial Services Supervisor ID - SARBJIT Molina Lab Interpretation (test Normal code = 75384-9) [facility] METABOLIC [id number] 07:22:00 Test Item Value Reference Range Interpretation [...] S NOT APPLICABLE FOR DIALYSIS PATIEN TS. Janitorial Services Supervisor ID - SARBJIT [id number] 07:22:00 Test Item Value Reference Range Interpretation Comments MAGNESIUM (BEAKER) (test code = 1.6 mg/dL 1.6-2.6 627) Janitorial Services Supervisor ID - SARBJIT [id number] 07:08:00 Test Item Value Reference Range Interpretation Comments PARTIAL THROMBOPLASTIN TIME 71.2 seconds 22.5-36.0 H (BEAKER) (test code = 760) [id number] 00:38:00 Test Item Value Reference Range Interpretation Comments PARTIAL THROMBOPLASTIN TIME 36.4 seconds 22.5-36.0 H (BEAKER) (test code = 760) [id number] 22:00:00 Test Item Value Reference Range Interpretation Comments PARTIAL THROMBOPLASTIN TIME 122.0 seconds 22.5-36.0 H (ERIK) (test code = 760) POCT-GLUCOSE [id number] 21:36:00 Test Item Value Reference Range Interpretation Comments POC-GLUCOSE METER 153 mg/dL 70-110 H : TESTED A T [facility] 6720 ([facility]) (test code = [facility], 1538) [address]: Janitorial Services Supervisor/Techni heather ID = [id number] for PIPPA GUERIN Vancomycin level, [id number] 21:03:00 Test Item Value Reference Range Interpretation Comments Vancomycin Tr (test code = 26.1 ug/mL 10-20 H 4092-3) CACHORRO (test code = CACHORRO) Janitorial Services Supervisor ID - DB Lab Interpretation (test Abnormal code = 63119-8) [facility], [id number] 21:03:00 Test Item Value Reference Range Interpretation Comments VANCOMYCIN TROUGH (BEAKER) (test 26.1 ug/mL 10.0-20.0 H code = 522) Janitorial Services Supervisor ID - DBPOCT-GLUCOSE [id number] 17:48:00 Test Item Value Reference Range Interpretation Comments POC-GLUCOSE METER 129 mg/dL 70-110 H : Notified RN/MD: (ERIK) (test code = TESTED AT [place] [address] 1538) [facility], [address]: Janitorial Services Supervisor/Techni heahter ID = [id number] for MALIHA HANNAH [id number] 14:09:00 Test Item Value Reference Range Interpretation Comments PARTIAL THROMBOPLASTIN TIME 41.5 seconds 22.5-36.0 H (ERIK) (test code = 760) POCT-GLUCOSE [id number] 11:54:00 Test Item Value Reference Range Interpretation Comments POC-GLUCOSE METER 130 mg/dL 70-110 H : Notified RN/MD: (ERIK) (test code = TESTED AT [place] [id number] 1538) [facility], [address]: Janitorial Services Supervisor/Techni heather ID = [id number] for MALIHA HANNAH POCT-GLUCOSE [id number] 07:53:00 Test Item Value Reference Range Interpretation Comments POC-GLUCOSE METER 152 mg/dL 70-110 H : Notified RN/MD: (ERIK) (test code = TESTED AT [facility] 1995 7494) [facility], [address]: Janitorial Services Supervisor/Techni heather ID = [id number] for AN MALIHA CARBALLO CBC W/PLT COUNT & AUTO [id number] 07:41:00 Test Item Value Reference Range Interpretation [...] CONCENTRATION Adequate (CELLAVISION)(BEAKER) (test code = 3438) Janitorial Services Supervisor ID - Magi Esposito comments: Slide comments:BASIC [...] S NOT APPLICABLE FOR DIALYSIS PATIEN TS. Janitorial Services Supervisor ID - [id number] 05:08:00 Test Item Value Reference Range Interpretation Comments PARTIAL THROMBOPLASTIN TIME 38.2 seconds 22.5-36.0 H ([facility]) (test code = 760) POCT-GLUCOSE [id number] 23:23:00 Test Item Value Reference Range Interpretation Comments POC-GLUCOSE METER 191 mg/dL 70-110 H : TESTED A T [facility] 6720 ([facility]) (test code = [facility] Mandi [facility], 1538) [address]: Janitorial Services Supervisor/Techni heather ID = [id number] for JONATAN BENITEZ RA [id number] 21:47:00 Test Item Value Reference Range Interpretation Comments PARTIAL THROMBOPLASTIN TIME 44.5 seconds 22.5-36.0 H ([facility]) (test code = 760) [id number] 18:57:00 Test Item Value Reference Range Interpretation Comments PARTIAL THROMBOPLASTIN TIME 129.6 seconds 22.5-36.0 H ([facility]) (test code = 760) POCT-GLUCOSE [id number] 18:19:00 Test Item Value Reference Range Interpretation Comments POC-GLUCOSE METER 173 mg/dL 70-110 H : Notified RN/MD: ([facility]) (test code = TESTED AT [place] [address] 1538) [facility], [address]: Janitorial Services Supervisor/Techni heather ID = [id number] for MALIHA HANNAH Arterial doppler legs [id number] 13:46:31[facility]ST[facility] ECHO HEART[facility] MKCKESSON CPACSRight Impression1. The common [...] + + + + + + !Prox SENIOR ANALYST PROGRAMMER ! !42.2 ! ! ! !11.8 ! ! ! + + + + + + + + + + !Mid SENIOR ANALYST PROGRAMMER ! !77.8 ! ! ! + + + + + + !Dist SENIOR ANALYST PROGRAMMER ! !44.8 ! ! ! +-------- + [...] Extremity Arterial Duplex Demographics Patient Name LEVI DYER KRYSTA Date of Study 06/26/2020 Age 75 Visit Number [id number] Gender Male Accession Number [id number] Date of 1945 Referring Suri Spencer Room Number 2419 Physician MD [employer] Manufacturing Worker Rajinder Moreno Interpreting Physician STEFANIE Foster ProcedureType of Study: Extremities Arteries: Lower Extremities [...] + + + + + + !Prox SENIOR ANALYST PROGRAMMER ! !42.2 ! ! ! !11.8 ! ! ! + + +------- + + + + + + + !Mid SENIOR ANALYST PROGRAMMER ! !77.8 ! ! ! + + + + + + !Dist SENIOR ANALYST PROGRAMMER ! !44.8 ! ! ! + + + + + + !Prox KYLEIGH ! !41 ! ! ! + + + + + + !Mid KYLEIGH ! !16 ! ! ! + + + + + + !Dist Peroneal ! !20.2 ! ! ! + + + -------+ + +OMID [facility] POCT-GLUCOSE [id number] 12:23:00 Test Item Value Reference Range Interpretation Comments POC-GLUCOSE METER 158 mg/dL 70-110 H : TESTED Javi Arizmendi [facility] 6720 (BEAKER) (test code = [place], 1538) [address]: Janitorial Services Supervisor/Techni heather ID = [id number] for MALIHA HANNAH [id number] 12:15:00 Test Item Value Reference Range Interpretation Comments PARTIAL THROMBOPLASTIN TIME 49.5 seconds 22.5-36.0 H (BEAKER) (test code = 760) CBC W/PLT COUNT & AUTO [id number] 09:10:00 Test Item Value Reference Range Interpretation [...] 965) ARTIFACT (CELLAVISION)(BEAKER) Present (test code = 3432) PLATELET CONCENTRATION Adequate (CELLAVISION)(BEAKER) (test code = 3438) Janitorial Services Supervisor ID - Raven Ledesma comments: Slide comments:POCT-GLUCOSE METER 2020-06-27 08:03:00 Test Item Value Reference Range Interpretation Comments POC-GLUCOSE METER 150 mg/dL 70-110 H : TESTED Javi T [facility] 6720 (BEAKER) (test code = [place], 1538) [address]: Janitorial Services Supervisor/Techni heather ID = [id number] for AN MALIHA CARBALLO BASIC METABOLIC [id number] 06:39:00 Test Item Value Reference Range Interpretation [...] S NOT APPLICABLE FOR DIALYSIS PATIEN TS. Janitorial Services Supervisor ID - PIAYA [id number] 06:02:00 Test Item Value Reference Range Interpretation Comments PARTIAL THROMBOPLASTIN TIME 77.3 seconds 22.5-36.0 H (BEAKER) (test code = 760) [id number] 23:03:00 Test Item Value Reference Range Interpretation Comments PARTIAL THROMBOPLASTIN TIME 54.9 seconds 22.5-36.0 H (BEAKER) (test code = 760) POCT-GLUCOSE [id number] 17:54:00 Test Item Value Reference Range Interpretation Comments POC-GLUCOSE METER 139 mg/dL 70-110 H : TESTED Javi T [facility] 6720 (BEAKER) (test code = [place], 1538) [address]: Janitorial Services Supervisor/Techni heather ID = [id number] for MALIHA HANNAH [id number] 15:39:00 Test Item Value Reference Range Interpretation [...] 0-0 (BEAKER) (test code = 413) POCT-GLUCOSE [id number] 12:48:00 Test Item Value Reference Range Interpretation Comments POC-GLUCOSE METER 100 mg/dL 70-110 : TESTED A T [facility] 6720 ([facility]) (test [facility] = [facility], 1538) [address]: Janitorial Services Supervisor/Techni heather ID = [id number] for AN MALIHA CARBALLO Venous doppler leg, [id number] 08:15:01[facility] ECHO HEARTLAB MKCKESSON CPACSRight Impression1. There is [...] Extremities DVT Study Demographics Patient Name LEVI DYER Date of Study 06/25/2020 Age 75 Visit Number [id number] Gender Male Accession Number [id number] Date of 1945 Referring Suri Spencer Room Number ED21 Physician MD [employer] Manufacturing Worker Rajinder Moreno Interpreting Physician STEFANIE Foster ProcedureType of Study: Veins: Lower Extremities DVT Study, VENOUS DOPPLER LEG, RIGHT. Indications for Study:Leg pain and Leg swelling.Patient Status:STAT.Study Location:[facility].Technical Quality:Technically Difficult. - Results were reported to: Dr. Chahal @ 23:15 (chronic).Risk FactorsHistory of Disease+ +----+ [...] in cm/s ; Diameters are measured in [facility] Hemoglobin [id number] 08:11:00 Test Item Value Reference Range Interpretation Comments Hemoglobin A1C (test code = 4548-4) 7.2 % 4.3-6.1 H Lab Interpretation (test code = Abnormal 78082-0) [facility] [id number] 08:11:00 Test Item Value Reference Range Interpretation Comments HEMOGLOBIN A1C (BEAKER) (test code = 7.2 % 4.3-6.1 H 368) CBC W/PLT COUNT & AUTO [id number] 07:57:00 Test Item Value Reference Range Interpretation [...] CONCENTRATION Adequate (CELLAVISION)(BEAKER) (test code = 3438) Janitorial Services Supervisor ID - Raven Ledesma comments: Slide comments:SARS-COV2/RT-PCR ([facility])2020-06-26 05:27:00 Test Item Value Reference Range Interpretation Comments SARS-COV2/RT-PCR (test Negative Not Detected, Negative, code = 6004446) See external report for linked test SARS-COV-2 PERFORMING LAB [facility] OLIVERIO (test code = 5684166) Negative result for this test determines that [...] the Pacheco SARS-CoV-2 assay.Fact Sheet for Healthcare Providers:https://www.molecular.pacheco/libby/ BK_PTCW-AiY-9_FOK_Lwvi_Sqgcz_09-366892.pdfFact Sheet for Healthcare Patients:https://www.Tesco.ab dario/libby/AM_ZIMP-JaW-0_Pgxmovc_Lxwb_Mixkq_KR_20-838400V3.pdfPerforming Laboratory:[place] [address] [place] [address] Vitamin B12 and [id number] 05:14:00 Test Item Value Reference Range Interpretation Comments Vitamin B12 (test 832 pg/mL 213-816 H code = 2132-9) Folate (test code = 17.50 ng/mL See_Comment [Automa vy 2284-8) message] The system which generated this result transmit vy reference range : >=7.00. The reference range was not used to interpret this result as normal/abnormal . CACHORRO (test code = CACHORRO) Janitorial Services Supervisor ID - SARBJIT M Lab Interpretation Abnormal (test code = 09790-6) [facility] AND [id number] 05:14:00 Test Item Value Reference Range Interpretation Comments VITAMIN B12 832 pg/mL 213-816 H (BEAKER) (test code = 774) FOLATE (BEAKER) 17.50 ng/mL See_Comment [Automated message] (test code = 362) The system which generated this result transmitted ref erence range: >=7.00. The reference range was not used to interpr et this result as normal/abnormal . Janitorial Services Supervisor ID - SARBJIT MC-Reactive [id number] 04:29:00 Test Item Value Reference Range Interpretation Comments CRP (test code = 676) 5.28 mg/dL 0-0.5 H CACHORRO (test code = CACHORRO) Janitorial Services Supervisor ID - SARBJIT M Lab Interpretation (test Abnormal code = 82522-5) [facility]-REACTIVE [id number] 04:29:00 Test Item Value Reference Range Interpretation Comments C-REACTIVE PROTEIN (BEAKER) (test 5.28 mg/dL 0.00-0.50 H code = 676) Janitorial Services Supervisor ID - SARBJIT MBASIC METABOLIC [id number] 04:29:00 Test Item Value Reference Range Interpretation [...] S NOT APPLICABLE FOR DIALYSIS PATIEN TS. Janitorial Services Supervisor ID - SARBJIT MRAD, FOOT, MIN 3 VIEWS, [id number] 23:41:00Reason for exam:->LEG PAINReason for exam:->LEG SWELLING [facility] KRYSTA : 1945 Sex: MFINAL REPORT RAD, [...] CONCENTRATION Adequate (CELLAVISION)(BEAKER) (test code = 3438) Janitorial Services Supervisor ID - Anastasia comments: Slide comments:Lactic acid, venous 2020-06-25 19:36:00 Test Item Value Reference Range Interpretation Comments Lactate, Venous (test code = 0.52 mmol/L 0.5-2.2 2872) CACHORRO (test code = CACHORRO) Janitorial Services Supervisor ID - BS Lab Interpretation (test Normal code = 60977-8) [facility] METABOLIC [id number] 19:36:00 Test Item Value Reference Range Interpretation [...] S NOT APPLICABLE FOR DIALYSIS PATIEN TS. Janitorial Services Supervisor ID - BSC-REACTIVE [id number] 19:36:00 Test Item Value Reference Range Interpretation Comments C-REACTIVE PROTEIN (BEAKER) (test 4.79 mg/dL 0.00-0.50 H code = 676) Janitorial Services Supervisor ID - BSLACTIC ACID, [id number] 19:36:00 Test Item Value Reference Range Interpretation Comments LACTATE BLOOD VENOUS (2) (BEAKER) 0.52 mmol/L 0.50-2.20 (test code = 2872) Janitorial Services Supervisor ID - BSPT/[id number] 19:32:00 Test Item Value Reference Interpretation Comments Range Protime (test code = 16.8 See_Comment H [Autom ated 1532-2) message] The system which generated this result transmitted reference range : 11.9 - 14.2 seconds. The reference range was not used to interpret this result as normal/abnormal . INR (test code = 1.40 See_Comment [Automated 0271-6) message] The system which generated this result transmitted reference range : <=5.90. The reference range was not used to interpret this result as normal/abnormal . PTT (test code = 39.7 See_Comment H [Automated 98567-0) message] The system which generated this result [...] valves. Lab Interpretation Abnormal (test code = 90318-5) [facility]/[id number] 19:32:00 Test Item Value Reference Range Interpretation [...] mechanical heart valves.CBC W/PLT COUNT & AUTO [id number] 19:25:00 Test Item Value Reference Range Interpretation [...] (BEAKER) (test code = 412) PLATELET COUNT (AKER) (test 217 K/CU MM 150-450 code = 756) MEAN PLATELET VOLUME (BEAKER) 9.0 fL 9.4-12.4 L (test code = 754) NUCLEATED RED BLOOD CELLS 0 /100 WBC 0-0 (AKER) (test code = 413) POCT-GLUCOSE [id number] 13:28:00 Test Item Value Reference Range Interpretation Comments POC-GLUCOSE METER 270 mg/dL 70-110 H TESTED AT [place] [address] ([facility]) (test code = [facility] 1538) [address] POCT-GLUCOSE [id number] 08:58:00 Test Item Value Reference Range Interpretation Comments POC-GLUCOSE METER 147 mg/dL 70-110 H TESTED AT [place] [address] ([facility]) (test code = [facility] 1538) [address] CBC W/PLT COUNT & AUTO [id number] 08:53:00 Test Item Value Reference Range Interpretation [...] 0-1 PERCENT (BEAKER) (test code = 2801) [id number] 08:05:00 Test Item Value Reference Range Interpretation Comments MAGNESIUM (BEAKER) (test code = 1.5 mg/dL 1.6-2.6 L 627) BASIC METABOLIC [id number] 08:05:00 Test Item Value Reference Range Interpretation Comments SODIUM (BEAKER) 137 meq/L 136-145 (test code = 381) POTASSIUM (BEAKER) 3.3 meq/L 3.5-5.1 L (test code = 379) CHLORIDE (BEAKER) 98 meq/L 98-107 (test code = 382) CO2 (BEAKER) (test 27 meq/L 22-29 code = 355) BLOOD UREA NITROGEN 30 mg/dL 7-21 H (AKER) (test code = 354) CREATININE (BEAKER) 1.59 mg/dL 0.57-1.25 H (test code = 358) GLUCOSE RANDOM 116 mg/dL 70-105 H (AKER) (test code = 652) CALCIUM (BEAKER) 9.0 mg/dL 8.4-10.2 (test code = 697) EGFR ([facility]) (test 43 mL/min/1.73 ESTIMA VY GFR IS code = 1092) sq m NOT ACCURATE CREATININE CLEARANCE IN PREDICTING GLOMERULAR FILTRATION RATE . ESTIMATED GFR I S NOT APPLICABLE FOR DIALYSIS PATIEN TS. POCT-GLUCOSE [id number] 21:57:00 Test Item Value Reference Range Interpretation Comments POC-GLUCOSE METER 219 mg/dL 70-110 H TESTED AT [place] [address] ([facility]) (test code = [place] 1538) [address] POCT-GLUCOSE [id number] 17:24:00 Test Item Value Reference Range Interpretation Comments POC-GLUCOSE METER 247 mg/dL 70-110 H TESTED AT [place] [address] ([facility]) (test code = [facility] Mandi [place] 1538) [address] CBC W/PLT COUNT & AUTO [id number] 13:56:00 Test Item Value Reference Range Interpretation [...] (BEAKER) (test code Normal = 762) POCT-GLUCOSE [id number] 13:22:00 Test Item Value Reference Range Interpretation Comments POC-GLUCOSE METER 226 mg/dL 70-110 H TESTED AT [facility] 6720 (BEAKER) (test code = [place] 1538) [address] POCT-GLUCOSE [id number] 07:59:00 Test Item Value Reference Range Interpretation Comments POC-GLUCOSE METER 216 mg/dL 70-110 H TESTED AT [place] [address] (BEAKER) (test code = [place] 1538) [address] [id number] 05:18:00 Test Item Value Reference Range Interpretation Comments MAGNESIUM (BEAKER) (test code = 1.7 mg/dL 1.6-2.6 627) BASIC METABOLIC [id number] 05:18:00 Test Item Value Reference Range Interpretation [...] NOT APPLICABLE FOR DIALYSIS PATIEN TS. POCT-GLUCOSE [id number] 20:58:00 Test Item Value Reference Range Interpretation Comments POC-GLUCOSE METER 260 mg/dL 70-110 H TESTED AT [facility] 6720 (BEAKER) (test code = [place] [facility] 1538) [address] POCT-GLUCOSE [id number] 17:32:00 Test Item Value Reference Range Interpretation Comments POC-GLUCOSE METER 237 mg/dL 70-110 H TESTED AT [place] [address] (BEAKER) ([facility] = [facility] 1538) [address] POCT-GLUCOSE [id number] 16:21:00 Test Item Value Reference Range Interpretation Comments POC-GLUCOSE METER 223 mg/dL 70-110 H TESTED AT [place] [address] (BEAKER) (test code = [facility] Mandi [facility] 1538) [address] CBC W/PLT COUNT & AUTO [id number] 14:22:00 Test Item Value Reference Range Interpretation [...] (BEAKER) (test code = Normal 762) POCT-GLUCOSE [id number] 11:52:00 Test Item Value Reference Range Interpretation Comments POC-GLUCOSE METER 143 mg/dL 70-110 H TESTED AT [place] [address] (BEAKER) (test code = [place] [facility] 1538) [address] POCT-GLUCOSE [id number] 08:04:00 Test Item Value Reference Range Interpretation Comments POC-GLUCOSE METER 86 mg/dL 70-110 TESTED AT [place] [address] (BEAKER) (test code = [place] [facility] [address] 1538) [id number] 06:07:00 Test Item Value Reference Range Interpretation Comments MAGNESIUM (BEAKER) 1.6 mg/dL 1.6-2.6 Specimen slightly (test code = 627) hemolyzed BASIC METABOLIC [id number] 06:07:00 Test Item Value Reference Range Interpretation Comments SODIUM (BEAKER) 135 meq/L 136-145 L (test code = 381) POTASSIUM (BEAKER) 3.7 meq/L 3.5-5.1 Specimen slightly (test code = 379) hemolyzed CHLORIDE (BEAKER) 104 meq/L 98-107 (test code = 382) CO2 (BEAKER) (test 22 meq/L 22-29 code = 355) BLOOD UREA NITROGEN 27 mg/dL 7-21 H (AKER) (test code = 354) CREATININE (AKER) 1.32 mg/dL 0.57-1.25 H Specimen slightly (test code = 358) hemolyzed GLUCOSE RANDOM 103 mg/dL 70-105 ([facility]) (test code = 652) CALCIUM (BEAKER) 8.4 mg/dL 8.4-10.2 (test code = 697) EGFR ([facility]) (test 53 mL/min/1.73 ESTIMA VY GFR IS code = 1092) sq m NOT ACCURATE CREATININE CLEARANCE IN PREDICTING GLOMERULAR FILTRATION RATE . ESTIMATED GFR I S NOT APPLICABLE FOR DIALYSIS PATIEN TS. POCT-GLUCOSE [id number] 20:42:00 Test Item Value Reference Range Interpretation Comments POC-GLUCOSE METER 338 mg/dL 70-110 H TESTED AT [facility] 67 ([facility]) (test code = [place] [facility] 1538) [address] POCT-GLUCOSE [id number] 17:41:00 Test Item Value Reference Range Interpretation Comments POC-GLUCOSE METER 303 mg/dL 70-110 H TESTED AT [place] [address] ([facility]) (test code = [place] [facility] 1538) [address] RAD, CHEST, 1 VIEW, NON [id number] 14:44:00Reason for exam:->shortness of breath s/p RHCShould this be performed at the bedside?->YesFINAL REPORT CLINICAL HISTORY: shortness of breath s/p RHC TECHNIQUE: 1 viewof the chest. COMPARISON: 01/31/2017 IMPRESSION: Trace bilateral pleural effusions are again seen with left basilar atelectasis. The cardiomediastinal silhouette is magnified by technique with a pacemaker. Signed: Barbara Espinoza MDReport Verified Date/Time: 02/05/2017 14:44:20 Reading Location: [facility] B1 C013W Consult Reading Room CBC W/PLT COUNT & AUTO [id number] 14:37:00 Test Item Value Reference Range Interpretation [...] (BEAKER) (test code = Normal 762) POCT-GLUCOSE [id number] 12:08:00 Test Item Value Reference Range Interpretation Comments POC-GLUCOSE METER 197 mg/dL 70-110 H TESTED AT [facility] 6720 (BEAKER) (test code = [facility] Mandi [facility] 1538) [address] POCT-GLUCOSE [id number] 07:55:00 Test Item Value Reference Range Interpretation Comments POC-GLUCOSE METER 149 mg/dL 70-110 H TESTED AT [facility] 6720 (BEAKER) (test code = [facility] [place] [facility] 1538) [address] [id number] 05:21:00 Test Item Value Reference Range Interpretation Comments MAGNESIUM (BEAKER) (test code = 1.4 mg/dL 1.6-2.6 L 627) BASIC METABOLIC [id number] 05:21:00 Test Item Value Reference Range Interpretation [...] NOT APPLICABLE FOR DIALYSIS PATIEN TS. POCT-GLUCOSE [id number] 21:03:00 Test Item Value Reference Range Interpretation Comments POC-GLUCOSE METER 296 mg/dL 70-110 H TESTED AT [facility] 6720 (BEAKER) (test code = [place] 1538) [address] POCT-GLUCOSE [id number] 17:18:00 Test Item Value Reference Range Interpretation Comments POC-GLUCOSE METER 275 mg/dL 70-110 H TESTED AT [facility] 6720 (BEAKER) (test code = [place] 1538) [address] CBC W/PLT COUNT & AUTO [id number] 15:04:00 Test Item Value Reference Range Interpretation [...] COUNTED (BEAKER) (test code = 1351) POCT-GLUCOSE [id number] 12:17:00 Test Item Value Reference Range Interpretation Comments POC-GLUCOSE METER 208 mg/dL 70-110 H [facility] AT [place] [address] [facility] (test code = [facility] 1538) [address] POCT-GLUCOSE [id number] 08:57:00 Test Item Value Reference Range Interpretation Comments POC-GLUCOSE METER 230 mg/dL 70-110 H TESTED AT [place] [address] ([facility] (test code = [facility] 1538) [address] [id number] 05:56:00 Test Item Value Reference Range Interpretation Comments MAGNESIUM (BEAKER) (test code = 1.6 mg/dL 1.6-2.6 627) BASIC METABOLIC [id number] 05:56:00 Test Item Value Reference Range Interpretation [...] NOT APPLICABLE FOR DIALYSIS PATIEN TS. POCT-GLUCOSE [id number] 21:20:00 Test Item Value Reference Range Interpretation Comments POC-GLUCOSE METER 329 mg/dL 70-110 H Notified R Warren WATTS/TESTED ([facility]) (test code = AT [facility] [address] [place] [address]1888) [facility] 7[address] 0 POCT-GLUCOSE [id number] 18:14:00 Test Item Value Reference Range Interpretation Comments POC-GLUCOSE METER 299 mg/dL 70-110 H TESTED AT [facility] 6720 ([facility]) (test code = [place] [facility] 1538) [address] CBC W/PLT COUNT & AUTO [id number] 15:17:00 Test Item Value Reference Range Interpretation [...] (BEAKER) (test code = Normal 762) POCT-GLUCOSE [id number] 12:54:00 Test Item Value Reference Range Interpretation Comments POC-GLUCOSE METER 173 mg/dL 70-110 H TESTED AT [facility] 6720 (BEAKER) (test code = [place] 1538) [address] URINALYSIS W/ REFLEX URINE [id number] 12:06:00 Test Item Value Reference Range Interpretation [...] code = 1584) SOURCE(BEAKER) (test code = 1792) CREATININE, RANDOM [id number] 10:52:00 Test Item Value Reference Range Interpretation Comments CREATININE URINE (BEAKER) (test 127.3 mg/dL code = 375) Reference Range: No NormalsPROTEIN, RANDOM [id number] 10:52:00 Test Item Value Reference Range Interpretation Comments PROTEIN, URINE (BEAKER) (test code = 19 mg/dL 0-14 H 1569) POCT-GLUCOSE [id number] 07:55:00 Test Item Value Reference Range Interpretation Comments POC-GLUCOSE METER 88 mg/dL 70-110 TESTED AT [facility] 67 (BEAKER) (test code = [place] [address] 1538) [id number] 05:22:00 Test Item Value Reference Range Interpretation Comments MAGNESIUM (BEAKER) (test code = 1.8 mg/dL 1.6-2.6 627) BASIC METABOLIC [id number] 05:22:00 Test Item Value Reference Range Interpretation [...] Reference Range Interpretation Comments B-TYPE NATRIURETIC PEPTIDE (AKER) 315 pg/mL 0-100 H (test code = 700) POCT-GLUCOSE [id number] 21:36:00 Test Item Value Reference Range Interpretation Comments POC-GLUCOSE METER 230 mg/dL 70-110 H TESTED AT [place] [address] ([facility]) (test code = [place] [facility] 1538) [address] POCT-GLUCOSE [id number] 17:50:00 Test Item Value Reference Range Interpretation Comments POC-GLUCOSE METER 185 mg/dL 70-110 H TESTED AT [place] [address] ([facility]) (test code = [facility] Mand[place] [facility] 1538) [address] POCT-GLUCOSE [id number] 12:49:00 Test Item Value Reference Range Interpretation Comments POC-GLUCOSE METER 168 mg/dL 70-110 H TESTED AT [place] [address] ([facility]) (test code = [facility] [place] [facility] 1538) [address] CT, CHEST, WITHOUT [id number] 11:27:00FINAL REPORT Chest CT without contrast Reason [...] MDReport Verified Date/Time: 02/02/2017 11:27:58 Reading Location: [address] Ortho Consult Reading Room POCT-GLUCOSE [id number] 08:24:00 Test Item Value Reference Range Interpretation Comments POC-GLUCOSE METER 84 mg/dL 70-110 TESTED AT [facility] 67 (BEAKER) (test code = [facility] [address] 1538) [id number] 07:42:00 Test Item Value Reference Range Interpretation Comments MAGNESIUM (BEAKER) (test code = 1.8 mg/dL 1.6-2.6 627) BASIC METABOLIC [id number] 07:42:00 Test Item Value Reference Range Interpretation [...] PATIEN TS. CBC W/PLT COUNT & AUTO [id number] 07:40:00 Test Item Value Reference Range Interpretation [...] PERCENT (BEAKER) (test code = 2801) POCT-GLUCOSE [id number] 21:29:00 Test Item Value Reference Range Interpretation Comments POC-GLUCOSE METER 273 mg/dL 70-110 H TESTED AT [place] [address] ([facility]) (test code = [facility] 1538) [address] POCT-GLUCOSE [id number] 19:21:00 Test Item Value Reference Range Interpretation Comments POC-GLUCOSE METER 286 mg/dL 70-110 H TESTED AT [place] [address] ([facility]) (test code = [facility] Mand[place] [facility] 1538) [address] POCT-GLUCOSE [id number] 17:33:00 Test Item Value Reference Range Interpretation Comments POC-GLUCOSE METER 263 mg/dL 70-110 H TESTED AT [place] [address] ([facility]) (test code = [facility] 1538) [address] POCT-GLUCOSE [id number] 12:25:00 Test Item Value Reference Range Interpretation Comments POC-GLUCOSE METER 196 mg/dL 70-110 H TESTED AT [place] [address] ([facility]) (test code = [facility] 1538) [address] CBC W/PLT COUNT & AUTO [id number] 10:54:00 Test Item Value Reference Range Interpretation Comments WHITE BLOOD CELL COUNT ([facility]) 9.0 K/ L 3.5-10.5 (test code = 775) RED BLOOD CELL COUNT ([facility]) 4.43 M/ L 4.63-6.08 L (test code [...] (BEAKER) (test code = Normal 762) POCT-GLUCOSE [id number] 08:17:00 Test Item Value Reference Range Interpretation Comments POC-GLUCOSE METER 176 mg/dL 70-110 H TESTED AT [facility] 6720 (BEAKER) (test code = [facility] [place] 1538) [address] [id number] 06:41:00 Test Item Value Reference Range Interpretation Comments MAGNESIUM (BEAKER) (test code = 1.7 mg/dL 1.6-2.6 627) BASIC METABOLIC [id number] 06:41:00 Test Item Value Reference Range Interpretation [...] NOT APPLICABLE FOR DIALYSIS PATIEN TS. POCT-GLUCOSE [id number] 21:33:00 Test Item Value Reference Range Interpretation Comments POC-GLUCOSE METER 295 mg/dL 70-110 H TESTED AT [facility] 6720 (BEAKER) (test code = SHRAVAN [address] [place] 1538) [id number] POCT-GLUCOSE [id number] 17:47:00 Test Item Value Reference Range Interpretation Comments POC-GLUCOSE METER 277 mg/dL 70-110 H TESTED AT [place] [id number] (BEAKER) (test code = SHRAVAN Raymond [facility] 1538) [id number] RAD, CHEST, 2 [id number] 15:44:00Reason for exam:->dyspneaFINAL REPORT HISTORY : dyspnea. [...] lower thoracic vertebral bodies. Signed: Modesta Moran Verified Date/Time: 01/31/2017 15:44:13 Reading Location: [address] Ortho Consult Reading Room POCT-GLUCOSE [id number] 11:51:00 Test Item Value Reference Range Interpretation Comments POC-GLUCOSE METER 238 mg/dL 70-110 H TESTED AT [place] [id number] ([facility]) (test code = SHRAVAN Raymond [facility] 1538) [address] POCT-GLUCOSE [id number] 09:54:00 Test Item Value Reference Range Interpretation Comments POC-GLUCOSE METER 224 mg/dL 70-110 H TESTED AT [place] [place] [address] ([facility]) (test code = SHRAVAN [place] [facility] 1538) [address] CBC W/PLT COUNT & AUTO [id number] 05:34:00 Test Item Value Reference Range Interpretation Comments WHITE BLOOD CELL COUNT ([facility]) 9.4 K/ L 3.5-10.5 (test code = 775) RED BLOOD CELL COUNT ([facility]) 4.42 M/ L 4.63-6.08 L (test code = 761) HEMOGLOBIN (BEAKER) (test code = 12.1 GM/DL 13.7-17.5 L 410) HEMATOCRIT ([facility]) (test code = 39.0 % 40.1-51.0 L 411) MEAN CORPUSCULAR VOLUME ([facility]) 88.2 fL 79.0-92.2 (test code = 753) [...] 0-1 PERCENT (BEAKER) (test code = 2801) [id number] 05:19:00 Test Item Value Reference Range Interpretation Comments MAGNESIUM (BEAKER) (test code = 1.8 mg/dL 1.6-2.6 627) BASIC METABOLIC [id number] 05:19:00 Test Item Value Reference Range Interpretation [...] APPLICABLE FOR DIALYSIS PATIEN TS. STREP PNEUMONIAE [id number] 23:56:00 Test Item Value Reference Range Interpretation [...] detection limit of the test. LEGIONELLA ANTIGEN, [id number] 23:54:00 Test Item Value Reference Range Interpretation [...] may cau se disease. INFLUENZA A H1N1 [id number] 23:10:00 Test Item Value Reference Range Interpretation Comments INFLUENZA A RNA Not Detected Not Detected, (BEAKER) (test code = Inconclusive 1545) NOVEL H1N1 RNA (BEAKER) Not Detected Not Detected, (test code = 1546) Inconclusive These assays were performed by real-time RT-PCR (parent partner-PCR) utilizing fluorogenic hydrolysis probe technology for the detection of human Influenza A viruses and the differential detection of novel H1N1 Influenza virus in respiratory specimens. The test is composed of (1) an RNA extraction from patient specimen, and (2) parent partner-PCR amplification and detection with human Influenza A and novel V3Q0-pdiaffrl primers and probes. A well-conserved region of [...] its performance characte ristics determined by the [facility] Pathology Department, Section of Molecular Pathology. It has not been cleared or approved by the U.S. Food and Drug Administration (FDA). SinceFDA approval is not required for clinical use of the test, validation was done as required by The Clinical Laboratory Amendments of 1988.These assays were performed by real-time RT-PCR (parent partner-PCR) utilizing fluorogenic hydrolysis probe technology for the detection of human Influenza A viruses and the differential detection of novel H1N1 Influenza virus in respiratory specimens. The test is composed of (1) an RNA extraction from patient specimen, and (2) parent partner-PCR amplification and detection with human In fluenza A and novel Q3J1-aulviqmy primers and probes. A well-conserved region of [...] performance characteristics determined by the [facility] Pathology Department, Section of Molecular Pathology. It has not been cleared or approved by the U.S. Food and Drug Administration (FDA). Since FDA approval is not required for clinical use of the test, validation was done as required by The Clinical Laboratory Amendments of 1987.POCT-GLUCOSE METER 2017-01-30 23:03:00 Test Item Value Reference Range Interpretation Comments POC-GLUCOSE METER 233 mg/dL 70-110 H TESTED AT [facility] 6720 (ERIK) (test code = SH[place]VAN [place] 1538) [address] U/S, RENAL, [id number] 22:23:00Reason for exam:->akiFINAL REPORT U/S, RENAL, COMPLETE [...] hydr onephrosis.Chronic findings as above. Signed: Sariah Padilla MDReport Verified Date/Time: 01/30/2017 22:23:06 Reading Location: [facility] C013X [place] Consult Reading Room SODIUM, RANDOM [id number] 20:40:00 Test Item Value Reference Range Interpretation Comments SODIUM URINE (BEAKER) (test code = < meq/L 243) Reference Range: No NormalsEOSINOPHIL SMEAR, [id number] 20:40:00 Test Item Value Reference Range Interpretation Comments EOSINOPHIL SMEAR, URINE (BEAKER) No EOS seen No EOS seen (test code = 1851) CREATININE, RANDOM [id number] 20:24:00 Test Item Value Reference Range Interpretation Comments CREATININE URINE (BEAKER) (test 113.2 mg/dL code = 375) Reference Range: No NormalsMICROALBUMIN, RANDOM [id number] 20:24:00 Test Item Value Reference Range Interpretation Comments MICROALBUMIN URINE (BEAKER) (test 4.2 mg/dL code = 1794) Reference Range: No NormalsURINALYSIS W/ [id number] 20:14:00 Test Item Value Reference Range Interpretation [...] 516) SOURCE(BEAKER) (test code = Urine, Voided 3581) POCT-GLUCOSE [id number] 18:25:00 Test Item Value Reference Range Interpretation Comments POC-GLUCOSE METER 230 mg/dL 70-110 H TEST[facility] [place] [address] [facility] (test code = [facility] 1538) [address] POCT-GLUCOSE [id number] 13:49:00 Test Item Value Reference Range Interpretation Comments POC-GLUCOSE METER 267 mg/dL 70-110 H TESTED AT [place] [address] ([facility]) (test code = [facility] 1538) [address] HEMOGLOBIN [id number] 11:50:00 Test Item Value Reference Range Interpretation Comments HEMOGLOBIN A1C (BEAKER) (test code = 10.7 % 4.3-6.1 H 368) TROPONIN [id number] 11:42:00 Test Item Value Reference Range Interpretation [...] acidosis, acute neurological disease, and persistent tachyarrhythmia.POCT-GLUCOSE [id number] 09:41:00 Test Item Value Reference Range Interpretation Comments POC-GLUCOSE METER 228 mg/dL 70-110 H TESTED AT [facility] 6720 (BEAKER) (test code = [place] 1538) [address] RAD, CHEST, 1 VIEW, NON [id number] 07:41:00Reason for exam:->eval pneumoniaShould this be performed [...] could represent atelectasis or pneumonitis. Signed: Modesta Moran MDReport Verified Date/Time: 01/30/2017 07:41:41 ReadingLocation: [facility] B1 C013T Transitional Reading Room MAGNESIUM 2017-01-30 02:54:00 Test Item Value Reference Range Interpretation Comments MAGNESIUM (BEAKER) (test code = 1.6 mg/dL 1.6-2.6 627) BASIC METABOLIC [id number] 02:54:00 Test Item Value Reference Range Interpretation [...] FOR DIALYSIS PATIEN TS. RAPID INFLUENZA A&B [id number] 02:41:00 Test Item Value Reference Range Interpretation Comments RAPID INFLUENZA A AG (BEAKER) Negative Negative, Inconclusive (test code = 1622) RAPID INFLUENZA B AG (BEAKER) Negative Negative, Inconclusive (test code = 1623) CBC W/PLT COUNT & AUTO [id number] 02:07:00 Test Item Value Reference Range Interpretation [...] PERCENT (BEAKER) (test code = 2801) POCT-GLUCOSE [id number] 23:18:00 Test Item Value Reference Range Interpretation Comments POC-GLUCOSE METER 230 mg/dL 70-110 H TESTED AT [facility] 6720 ([facility]) (test code = [place] 1538) [address] CHEM [id number] 10:03:00 Test Item Value Reference Range Interpretation Comments Phosphorus (test code = Phosphorus) 3.1 2.5-4.5 [facility] [id number] 10:03:00 Test Item Value Reference Range Interpretation Comments Magnesium Lvl (test code = Magnesium 2.6 1.8-2.4 Lvl) [facility] Su[id number] 10:03:00 Test Item Value Reference Range Interpretation Comments AGAP (test code = AGAP) 11.1 10.0-20.0 [facility] SurgeryWuijujnEEYOMGNDAVHY2271-10-31 10:03:00 Test Item Value Reference Range Interpretation Comments Potassium Lvl (test code = Potassium 4.1 3.5-5.1 Lvl) [facility] Surgery[id number] 10:03:00 Test Item Value Reference Range Interpretation Comments Chloride Lvl (test code = Chloride Lvl) 105 95-109 [facility] SurgeryUpsbudqMGFXMJGAMNVL9578-00-07 10:03:00 Test Item Value Reference Range Interpretation Comments CO2 (test code = CO2) 25 24-32 [facility] SurgeryLqvtosgPBLQTZCIHCOO0406-20-23 10:03:00 Test Item Value Reference Range Interpretation Comments eGFR (test code = eGFR) 74 [facility] SurgeryNegofabYZTJHMUGRCWP4498-20-54 10:03:00 Test Item Value Reference Range Interpretation Comments BUN (test code = BUN) 16 7-22 [facility] SurgeryCcomxmqGDRVRKTLUJWH3580-80-12 10:03:00 Test Item Value Reference Range Interpretation Comments Glucose Lvl (test code = Glucose Lvl) 177 70-99 [facility] Surgery[id number] 10:03:00 Test Item Value Reference Range Interpretation Comments Calcium Lvl (test code = Calcium Lvl) 8.7 8.5-10.5 [facility] Surgery[id number] 10:03:00 Test Item Value Reference Range Interpretation Comments Creatinine Lvl (test code = Creatinine 1.00 0.50-1.40 Lvl) [facility] Surgery[id number] 10:03:00 Test Item Value Reference Range Interpretation Comments Sodium Lvl (test code = Sodium Lvl) 137 135-145 [facility] CenterCmzrciiRYJDTSLDFX0944-75-40 10:03:00 Test Item Value Reference Range Interpretation Comments Plt Morph (test code = Normal (09/12/16 5:03 AM) Plt Morph) [facility] CenterTaeqjcaKJKMUBXDMP0930-12-11 10:03:00 Test Item Value Reference Range Interpretation Comments Bands (test code = 0.0 See_Comment [Automat ed message] The Bands) system which ge nerated this result transmit vy reference range : <=11.0. The reference r gianfranco was not used to interpr et this result as daquan l/abnormal. [facility] CenterXvvnlzuHNQPCCXEMY1046-33-06 10:03:00 Test Item Value Reference Range Interpretation Comments Atypical Lymphs (test code = Atypical 0.0 Lymphs) [facility] CenterYskkjykJUYCTVUGBQ0122-04-34 10:03:00 Test Item Value Reference Range Interpretation Comments Monocytes (test code = Monocytes) 17.0 2.0-12.0 [facility] CenterTbzwcaqGZOFSFTUQR7097-15-15 10:03:00 Test Item Value Reference Range Interpretation Comments RBC Morph (test code = Normal (09/12/16 5:03 AM) RBC Morph) [facility] CenterLjxfgvbJQTCVXVFIZ9920-82-28 10:03:00 Test Item Value Reference Range Interpretation Comments Eosinophils (test code = 1.0 See_Comment [A utomated message] The Eosinophils) system which ge nerated this result tra nsmitted reference range : <=4.0. The reference r gianfranco was not used to int erpret this result as normal/abnormal . [facility] CenterLbezanbAHKWJEVJPM1364-27-38 10:03:00 Test Item Value Reference Range Interpretation Comments Lymphocytes (test code = Lymphocytes) 27.0 20.0-40.0 [facility] CenterOqnxvukDREFGWMBWF4528-97-48 10:03:00 Test Item Value Reference Range Interpretation Comments Segs-Bands # (test code = Segs-Bands #) 4.8 1.5-8.1 [facility] CenterKediccnAFYRRWHRIC9420-23-53 10:03:00 Test Item Value Reference Range Interpretation Comments Lymphocytes # (test code = Lymphocytes 2.3 1.0-5.5 #) [facility] CenterWzgyfwsVZKZWOMBYC4705-18-67 10:03:00 Test Item Value Reference Range Interpretation Comments Segs (test code = Segs) 55.0 45.0-75.0 [facility] CenterLjvygjaKJNGRYFGFC1636-12-30 10:03:00 Test Item Value Reference Range Interpretation Comments Eosinophils # (test code 0.1 See_Comment [A utomated message] The = Eosinophils #) system whic h generated this result tra nsmitted reference range : <=0.5. The reference r gianfranco was not used to int erpret this result as normal/abnormal . [facility] CenterShafgyhQDQOTYBVNN6986-18-21 10:03:00 Test Item Value Reference Range Interpretation Comments Monocytes # (test code 1.5 See_Comment [Aut omated message] The = Monocytes #) system which generated this result tra nsmitted reference range : <=0.8. The reference r gianfranco was not used to int erpret this result as normal/abnormal . [facility] CenterSqonzkbUCCPKPDSPP1865-21-10 10:03:00 Test Item Value Reference Range Interpretation Comments MPV (test code = MPV) 7.7 7.4-10.4 [facility] CenterHqnjhbsVLQDOMGWLF3204-02-25 10:03:00 Test Item Value Reference Range Interpretation Comments MCH (test code = MCH) 29.8 pg 27.0-31.0 [facility] CenterCtjxlmxEPOGRSEKJV5438-92-13 10:03:00 Test Item Value Reference Range Interpretation Comments MCV (test code = MCV) 88.2 80.0-94.0 [facility] CenterCrdkzntECURVWVKDD6536-45-18 10:03:00 Test Item Value Reference Range Interpretation Comments Platelet (test code = Platelet) 177 133-450 [facility] CenterTjodftgEMXKXOXGGU4332-22-03 10:03:00 Test Item Value Reference Range Interpretation Comments RDW (test code = RDW) 14.7 11.5-14.5 [facility] CenterOjwwymyFCBTZLJADA0168-62-49 10:03:00 Test Item Value Reference Range Interpretation Comments MCHC (test code = MCHC) 33.8 32.0-36.0 [facility] CenterRkcibmaOTDHCNKNNZ8083-10-56 10:03:00 Test Item Value Reference Range Interpretation Comments RBC (test code = RBC) 3.97 4.70-6.10 [facility] CenterXallxlyEUMKXNDLQF8538-44-95 10:03:00 Test Item Value Reference Range Interpretation Comments Hgb (test code = Hgb) 11.8 14.0-18.0 [facility] CenterPgqkvxoBSHJWARAAB1219-06-92 10:03:00 Test Item Value Reference Range Interpretation Comments WBC (test code = WBC) 8.7 3.7-10.4 [facility] CenterAuarpkwHTFCCRXBUZ3847-23-04 10:03:00 Test Item Value Reference Range Interpretation Comments Hct (test code = Hct) 35.0 42.0-54.0 [facility]2017-08-04 23:45:00 Test Item Value Reference Range Interpretation Comments eGFR (test code = eGFR) 68 [facility]2017-08-04 23:45:00 Test Item Value Reference Range Interpretation Comments AGAP (test code = AGAP) 13.8 10.0-20.0 [facility]2017-08-04 23:45:00 Test Item Value Reference Range Interpretation Comments Calcium Lvl (test code = Calcium Lvl) 9.0 8.5-10.5 [facility]2017-08-04 23:45:00 Test Item Value Reference Range Interpretation Comments CO2 (test code = CO2) 26 24-32 [facility]2017-08-04 23:45:00 Test Item Value Reference Range Interpretation Comments Chloride Lvl (test code = Chloride Lvl) 104 95-109 [facility]2017-08-04 23:45:00 Test Item Value Reference Range Interpretation Comments Potassium Lvl (test code = Potassium 3.8 3.5-5.1 Lvl) [facility]2017-08-04 23:45:00 Test Item Value Reference Range Interpretation Comments Sodium Lvl (test code = Sodium Lvl) 140 135-145 [facility]2017-08-04 23:45:00 Test Item Value Reference Range Interpretation Comments Creatinine Lvl (test code = Creatinine 1.07 0.50-1.40 Lvl) [facility]2017-08-04 23:45:00 Test Item Value Reference Range Interpretation Comments BUN (test code = BUN) 13 7-22 [facility]2017-08-04 23:45:00 Test Item Value Reference Range Interpretation Comments Glucose Lvl (test code = Glucose Lvl) 146 70-99 [facility] SurgeryHrakiksVEHIDBJVPDWI9906-42-38 16:12:00 Test Item Value Reference Range Interpretation Comments Calcium Lvl (test code = Calcium Lvl) 8.9 8.5-10.5 [facility] SurgeryEputohfNKBRGYBQZGJB6895-23-79 16:12:00 Test Item Value Reference Range Interpretation Comments Sodium Lvl (test code = Sodium Lvl) 136 135-145 [facility] SurgeryMtvnbcpNVQERIMRKHFM1699-64-91 16:12:00 Test Item Value Reference Range Interpretation Comments Creatinine Lvl (test code = Creatinine 1.06 0.50-1.40 Lvl) [facility] SurgeryYxzjffxZCCZRYCRZAPO6654-58-21 16:12:00 Test Item Value Reference Range Interpretation Comments BUN (test code = BUN) 15 7- [facility] SurgeryZhkhzmsGELCYABCCTTE9983-87-50 16:12:00 Test Item Value Reference Range Interpretation Comments Glucose Lvl (test code = Glucose Lvl) 87 70-99 [facility] CenterTjrxaixDWIIHLKFKY9064-84-02 16:12:00 Test Item Value Reference Range Interpretation Comments Hct (test code = Hct) 33.1 42.0-54.0 [facility] CenterZnnhuxaABGQVKPVCO2011-78-86 16:12:00 Test Item Value Reference Range Interpretation Comments Platelet (test code = Platelet) 188 133-450 [facility] CenterFglxfyhWHKBZMNHZO0167-14-80 16:12:00 Test Item Value Reference Range Interpretation Comments Hgb (test code = Hgb) 11.0 14.0-18.0 [facility] CenterTcqyguvOKBGNYBLAB3201-74-53 16:12:00 Test Item Value Reference Range Interpretation Comments MPV (test code = MPV) 7.5 7.4-10.4 [facility] CenterRdvbregDMUQQGEUQV4633-35-69 16:12:00 Test Item Value Reference Range Interpretation Comments MCV (test code = MCV) 89.2 80.0-94.0 [facility] CenterRtnyujjHABTDNSCFM5934-61-33 16:12:00 Test Item Value Reference Range Interpretation Comments MCH (test code = MCH) 29.5 pg 27.0-31.0 [facility] CenterCqvppobTHKDALXUMU9307-19-82 16:12:00 Test Item Value Reference Range Interpretation Comments RBC (test code = RBC) 3.72 4.70-6.10 [facility] CenterHpeflwqJNMTULFNGP7375-30-77 16:12:00 Test Item Value Reference Range Interpretation Comments RDW (test code = RDW) 14.7 11.5-14.5 [facility] CenterUkgbudiVFELWEMDRM0622-40-26 16:12:00 Test Item Value Reference Range Interpretation Comments WBC (test code = WBC) 8.2 3.7-10.4 [facility] CenterSdkbedfOYULVFUXEJ4833-52-60 16:12:00 Test Item Value Reference Range Interpretation Comments MCHC (test code = MCHC) 33.1 32.0-36.0 [facility] CenterFzeqmfwWSLCYEEJIN6982-71-16 16:12:00 Test Item Value Reference Range Interpretation Comments PT (test code = PT) 16.6 s 12.0-14.7 [facility] CenterJnzecrjCYTURWKCQR8341-69-55 16:12:00 Test Item Value Reference Range Interpretation Comments INR (test code = INR) 1.32 0.85-1.17 [facility] CenterFnwqkrkSYNUZQOKEK8940-30-96 16:12:00 Test Item Value Reference Range Interpretation Comments PTT (test code = PTT) 43.0 s 22.9-35.8 [facility] CenterYnhqnlbDYCFBNROAV7690-57-80 16:12:00 Test Item Value Reference Range Interpretation Comments Monocytes # (test code 1.6 See_Comment [Aut omated message] The = Monocytes #) system which generated this result tra nsmitted reference range : <=0.8. The reference r gianfranco was not used to int erpret this result as normal/abnormal . [facility] CenterVtdnsyaSQPAYYNECV8537-93-73 16:12:00 Test Item Value Reference Range Interpretation Comments Eosinophils # (test code 0.3 See_Comment [A utomated message] The = Eosinophils #) system whic h generated this result tra nsmitted reference range : <=0.5. The reference r gianfranco was not used to int erpret this result as normal/abnormal . [facility] CenterRigwuioFBFHEPJOTH1796-61-95 16:12:00 Test Item Value Reference Range Interpretation Comments Lymphocytes # (test code = Lymphocytes 1.7 1.0-5.5 #) [facility] CenterPftvburYCECPBRXYZ2662-84-03 16:12:00 Test Item Value Reference Range Interpretation Comments Basophils (test code = 0.5 See_Comment [Aut omated message] The Basophils) system which ge nerated this result tra nsmitted reference range : <=1.0. The reference r gianfranco was not used to int erpret this result as normal/abnormal . [facility] CenterPvdpfdoAUGFWPTLOU5452-26-42 16:12:00 Test Item Value Reference Range Interpretation Comments Segs-Bands # (test code = Segs-Bands #) 4.5 1.5-8.1 [facility]ewMGISSJHRDK2025-94-04 16:12:00 Test Item Value Reference Range Interpretation Comments Eosinophils (test code = 3.4 See_Comment [A utomated message] The Eosinophils) system which ge nerated this result tra nsmitted reference range : <=4.0. The reference r gianfranco was not used to int erpret this result as normal/abnormal . [facility] HospitalScbcnvsBZHYWTLTKU0133-14-87 16:12:00 Test Item Value Reference Range Interpretation Comments Segs (test code = Segs) 55.3 45.0-75.0 [facility] HospitalUthwjaqPWENKKGDUS0125-97-33 16:12:00 Test Item Value Reference Range Interpretation Comments Lymphocytes (test code = Lymphocytes) 21.2 20.0-40.0 [facility] HospitalVhughsyHCQMFONMAP9666-83-82 16:12:00 Test Item Value Reference Range Interpretation Comments Monocytes (test code = Monocytes) 19.6 2.0-12.0 [employer] [id number] 16:12:00 Test Item Value Reference Range Interpretation Comments ABO/Rh (test code = ABO/Rh) O POS [facility] [employer] KIMICZJ8580-29-34 16:12:00 Test Item Value Reference Range Interpretation Comments Antibody Scrn (test Negative (09/11/16 11:12 code = Antibody Scrn) AM) [facility]2017-08-04 16:12:00 Test Item Value Reference Range Interpretation Comments Phosphorus (test code = Phosphorus) 3.3 2.5-4.5 [facility]2017-08-04 16:12:00 Test Item Value Reference Range Interpretation Comments Magnesium Lvl (test code = Magnesium 1.6 1.8-2.4 Lvl) [facility] SurgeryHtkldiyKDQIDZVPWKFJ6266-23-09 16:12:00 Test Item Value Reference Range Interpretation Comments AGAP (test code = AGAP) 9.7 10.0-20.0 [facility] SurgeryRtfjkajCHROXJSBJLDK7581-35-87 16:12:00 Test Item Value Reference Range Interpretation Comments eGFR (test code = eGFR) 69 [facility] SurgeryYfnmoxwSRUTILXZADNC8249-03-47 16:12:00 Test Item Value Reference Range Interpretation Comments CO2 (test code = CO2) - [facility] SurgeryLnunaxxKBQPSCABUMBK4894-05-51 16:12:00 Test Item Value Reference Range Interpretation Comments Chloride Lvl (test code = Chloride Lvl) 102 95-109 [facility] SurgeryYdixaukRDQSYLCNIRKO3563-07-92 16:12:00 Test Item Value Reference Range Interpretation Comments Potassium Lvl (test code = Potassium 3.7 3.5-5.1 Lvl) [facility]2015-01-26 16:27:00 Test Item Value Reference Range Interpretation Comments Calcium Lvl (test code = Calcium Lvl) 9.4 8.5-10.5 [facility]2015-01-26 16:27:00 Test Item Value Reference Range Interpretation Comments CO2 (test code = CO2) - [facility]2015-01-26 16:27:00 Test Item Value Reference Range Interpretation Comments eGFR (test code = eGFR) 40 [facility]2015-01-26 16:27:00 Test Item Value Reference Range Interpretation Comments BUN (test code = BUN) 45 7-22 [facility]2015-01-26 16:27:00 Test Item Value Reference Range Interpretation Comments Glucose Lvl (test code = Glucose Lvl) 100 70-99 [facility]2015-01-26 16:27:00 Test Item Value Reference Range Interpretation Comments Potassium Lvl (test code = Potassium 4.4 3.5-5.1 Lvl) [facility]2015-01-26 16:27:00 Test Item Value Reference Range Interpretation Comments Chloride Lvl (test code = Chloride Lvl) 106 95-109 [facility]2015-01-26 16:27:00 Test Item Value Reference Range Interpretation Comments Creatinine Lvl (test code = Creatinine 1.7 0.5-1.4 Lvl) [facility]2015-01-26 16:27:00 Test Item Value Reference Range Interpretation Comments Sodium Lvl (test code = Sodium Lvl) 139 135-145 [facility]2015-01-26 16:27:00 Test Item Value Reference Range Interpretation Comments AGAP (test code = AGAP) 11.4 10.0-20.0 [facility] [id number] 16:27:00 Test Item Value Reference Range Interpretation Comments MPV (test code = MPV) 7.3 7.4-10.4 [facility] [id number] 16:27:00 Test Item Value Reference Range Interpretation Comments MCHC (test code = MCHC) 33.9 32.0-36.0 [facility] [id number] 16:27:00 Test Item Value Reference Range Interpretation Comments Platelet (test code = Platelet) 198 133-450 [facility] [id number] 16:27:00 Test Item Value Reference Range Interpretation Comments Hgb (test code = Hgb) 13.7 14.0-18.0 [facility] [id number] 16:27:00 Test Item Value Reference Range Interpretation Comments RDW (test code = RDW) 14.6 11.5-14.5 [facility] [id number] 16:27:00 Test Item Value Reference Range Interpretation Comments Hct (test code = Hct) 40.4 42.0-54.0 [facility] [id number] 16:27:00 Test Item Value Reference Range Interpretation Comments MCH (test code = MCH) 31.5 pg 27.0-31.0 [facility] [id number] 16:27:00 Test Item Value Reference Range Interpretation Comments MCV (test code = MCV) 92.8 80.0-94.0 [facility] [id number] 16:27:00 Test Item Value Reference Range Interpretation Comments RBC (test code = RBC) 4.35 4.70-6.10 [facility] [id number] 16:27:00 Test Item Value Reference Range Interpretation Comments WBC (test code = WBC) 9.4 3.7-10.4 [facility] [id number] 16:27:00 Test Item Value Reference Range Interpretation Comments Eosinophils (test code = 2.4 See_Comment [A utomated message] The Eosinophils) system which ge nerated this result tra nsmitted reference range : <=4.0. The reference r gianfranco was not used to int erpret this result as normal/abnormal . [facility] [id number] 16:27:00 Test Item Value Reference Range Interpretation Comments Monocytes (test code = Monocytes) 14.6 2.0-12.0 [facility] [id number] 16:27:00 Test Item Value Reference Range Interpretation Comments Segs-Bands # (test code = Segs-Bands #) 5.5 1.5-8.1 [facility] [id number] 16:27:00 Test Item Value Reference Range Interpretation Comments Lymphocytes (test code = Lymphocytes) 24.1 20.0-40.0 [facility] [id number] 16:27:00 Test Item Value Reference Range Interpretation Comments Segs (test code = Segs) 58.6 45.0-75.0 [facility] [id number] 16:27:00 Test Item Value Reference Range Interpretation Comments Basophils # (test code 0.0 See_Comment [Aut omated message] The = Basophils #) system which generated this result tra nsmitted reference range : <=0.2. The reference r gianfranco was not used to int erpret this result as normal/abnormal . [facility] [id number] 16:27:00 Test Item Value Reference Range Interpretation Comments Eosinophils # (test code 0.2 See_Comment [A utomated message] The = Eosinophils #) system whic h generated this result tra nsmitted reference range : <=0.5. The reference r gianfranco was not used to int erpret this result as normal/abnormal . [facility] [id number] 16:27:00 Test Item Value Reference Range Interpretation Comments Basophils (test code = 0.3 See_Comment [Aut omated message] The Basophils) system which ge nerated this result tra nsmitted reference range : <=1.0. The reference r gianfranco was not used to int erpret this result as normal/abnormal . [facility] [id number] 16:27:00 Test Item Value Reference Range Interpretation Comments Monocytes # (test code 1.4 See_Comment [Aut omated message] The = Monocytes #) system which generated this result tra nsmitted reference range : <=0.8. The reference r gianfranco was not used to int erpret this result as normal/abnormal . [facility] [id number] 16:27:00 Test Item Value Reference Range Interpretation Comments Lymphocytes # (test code = Lymphocytes 2.3 1.0-5.5 #) [facility]
--- NOTE | 2021-05-27 15:50 | RAD REPORT ---
EXAM DESCRIPTION: RAD - Foot Left 3 View - 05/27/2021 2:28 pm CLINICAL HISTORY: Pain COMPARISON: Foot Left 3 View dated 06/23/2018 FINDINGS: First digit distal phalanx and proximal phalanx head have been surgically removed. Contour of the remnant first proximal phalanx at the osteotomy site has not changed. No erosive or destructi ve change in the first toe. Bone destructive changes are present in the third distal phalanx. This is a new finding from 2019. Cl inical history did not indicate the third toe process. Finding is concerning for osteomyelitis. Corre lation is needed with any soft tissue infection findings in the third toe. The second, fourth and fif th toe show no acute bone finding. No acute metatarsal or tarsal finding. No air or foreign body in the soft tissues. IMPRESSION: Bone destructive changes involve the third toe distal phalanx suspicious for osteomyelit is. Correlation is needed for third toe soft tissue infection or wound findings.
[2021-05-27] MEDS ORDERED: CEFEPIME 2 GM VIAL ONE (16:22)
[2021-05-27] MEDS ORDERED: VANCOMYCIN 1 GM/VIAL ONE (16:22)
[2021-05-27] MEDS ORDERED: NA CHLORIDE 0.9% 500 ML ONE (16:22)
[2021-05-27] MEDS ORDERED: NA CHLORIDE 0.9% 250 ML ONE (16:22)
[2021-05-27] MEDS ORDERED: NA CHLORIDE 0.9% 100 ML IV ONE (16:23)
[2021-05-27 16:46] LABS: Absolute Lymphocytes (CBC) 1.5 K/uL (0.7-4.9); Hematocrit 41.9 % (39.6-49.0); Lymphocytes % 16.6 % (15.3-44.8); RBC Red Blood Cell Count 4.28 M/uL (4.33-5.43)
[2021-05-27 17:01] LABS: Albumin 3.2 g/dL (3.4-5.0); Bilirubin Total 0.7 mg/dL (0.2-1.0); Potassium 4.5 mmol/L (3.5-5.1); Protein, Total 8.1 g/dL (6.4-8.2)
--- NOTE | 2021-05-27 18:12 | ER ---
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 Coronavirus screen: At this time, the client does not indicate any symptoms associated with coronavirus-19. Ebola Screen: Patient negative for fever greater than or equal to 101.5 degrees Fahrenheit, and additional compatible Ebola Virus Disease symptoms Patient denies exposure to infectious person. Patient denies travel to an Ebola-affected area in the 21 days before illness onset. No symptoms or risks identified at this time. Initial Sepsis Screen: Does the patient meet any 2 criteria? No. Patient's initial sepsis screen is negative. Does the patient have a suspected source of infection? No. Patient's initial sepsis screen is negative. Risk Assessment: Do you want to hurt yourself or someone else? Patient reports no desire to harm self or others. Onset of symptoms was May 20, 2021. 13:13 Method Of Arrival: Wheelchair iw 13:13 Acuity: MITCH 3 iw Historical: - Allergies: 13:14 steroids; iw - PMHx: 13:14 Atrial Fib; CVA; Diabetes - IDDM; Diabetes - NIDDM; Hypertension; Pacemaker; Angina iw pectoris; - Immunization history:: Adult Immunizations up to date, Client reports receiving the 2nd dose of the Covid vaccine. - Social history:: Smoking status: Patient denies any tobacco usage or history of. Patient/guardian denies using alcohol. Screenin:00 Abuse screen: Denies threats or abuse. Nutritional screening: No deficits noted. vc1 Tuberculosis screening: No symptoms or risk factors identified. Fall Risk No fall in past 12 months (0 pts). No secondary diagnosis (0 pts). IV access (20 points). Ambulatory Aid- None/Bed Rest/Nurse Assist (0 pts). Gait- Impaired (20 pts.). Mental Status- Oriented to own ability (0 pts). Total Sweeney Fall Scale indicates Low Risk Score (25-44 pts). Fall prevention measures have been instituted. Side Rails Up X 2 Placed close to Nursing Station. Assessment: 16:28 General: Appears in no apparent distress. comfortable, Behavior is calm, cooperative, ld1 appropriate for age. Pain: Complains of pain in lateral aspect of left foot Pain does not radiate. Pain currently is 8 out of 10 on a pain scale. Quality of pain is described as sharp, shooting, throbbing, Pain began gradually. Neuro: Level of Consciousness is awake, alert, obeys commands, Oriented to person, place, time, situation. Cardiovascular: Capillary refill < 3 seconds Patient's skin is warm and dry. Respiratory: Airway is patent Respiratory effort is even, unlabored. GI: Abdomen is flat, non-distended. : No signs and/or symptoms were reported regarding the genitourinary system. EENT: No signs and/or symptoms were reported regarding the EENT system. Derm: No signs and/or symptoms reported regarding the dermatologic system. Musculoskeletal: No signs and/or symptoms reported regarding the musculoskeletal system. 17:58 Reassessment: Patient appears in no apparent distress at this time. Patient and/or ld1 family updated on plan of care and expected duration. Pain level reassessed. Patient is alert, oriented x 3, equal unlabored respirations, skin warm/dry/pink. 19:42 Reassessment: Patient appears in no apparent distress at this time. Patient and/or ld1 family updated on plan of care and expected duration. Pain level reassessed. Vital Signs: 13:13 BP 97 / 50; Pulse 69; Resp 16; Temp 96.9; Pulse Ox 100% on R/A; Weight 93.89 kg; Height iw 6 ft. 0 in. (182.88 cm); Pain 10/10; 16:28 BP 111 / 48; Pulse 68; Resp 18; Temp 97.8(O); Pulse Ox 100% on R/A; ld1 17:58 BP 134 / 59; Pulse 73; Resp 18; Pulse Ox 98% on R/A; ld1 19:42 BP 162 / 71; Pulse 75; Resp 18; Pulse Ox 98% on R/A; ld1 13:13 Body Mass Index 28.07 (93.89 kg, 182.88 cm) iw ED Course: 11:58 Patient arrived in ED. mr 11:58 Pablo Dulce is Private Physician. mr 13:14 Triage completed. iw 13:15 Arm band placed on. iw 13:35 Jorge Cope NP is PHCP. pm1 13:35 Leigh Ann Reynoso MD is Attending Physician. pm1 14:29 Foot Left 3 View XRAY In Process Unspecified. EDMS 15:54 Chelly Mckoy, RN is Primary Nurse. ld1 16:28 COVID-19 SARS RT PCR (Document "Date of Onset" if Symptomatic) Sent. ld1 16:28 Blood Culture Adult (2) Sent. ld1 16:59 COVID-19 SARS RT PCR (Document "Date of Onset" if Symptomatic) Sent. ld1 18:11 Ferdinand Soares is Hospitalizing Provider. pm1 20:58 No provider procedures requiring assistance completed. Patient admitted, IV remains in vc1 place. Administered Medications: 16:28 Drug: Cefepime 2 grams Route: IVPB; Rate: 200 ml/hr; Infused Over: 30 mins; Site: right ld1 antecubital; 16:28 Drug: NS 0.9% 500 ml Route: IV; Rate: bolus; Site: right antecubital; ld1 16:59 Drug: vancoMYCIN 1 grams Route: IVPB; Infused Over: 2 hrs; Site: right antecubital; ld1 18:30 Follow up: Response: No adverse reaction; IV Status: Completed infusion; IV Intake: ld1 250ml 18:38 Drug: fentaNYL (PF) 25 mcg Route: IVP; Site: right antecubital; ld1 Intake: 18:30 IV: 250ml; Total: 250ml. ld1 Outcome: 18:11 Decision to Hospitalize by Provider. pm1 20:58 Admitted to Med/surg accompanied by nurse, room 228, with chart. vc1 20:58 Condition: good 20:58 Patient left the ED. vc1 Signatures: Dispatcher [employer] EDTN HernandezFifi Irene, RN RN Jorge Cope NP TEMPORARY STAFF ACCOUNTANT pm1 Chelly Mckoy, JUDSON RN ld1 Marci Boyd RN RN vc1
--- NOTE | 2021-05-27 18:12 | EDPHYS ---
Physician Documentation [facility] Name: Ely Coley Age: 75 yrs Sex: Male : 1945 Arrival Date: 05/27/2021 Time: 11:58 Bed 24 Private MD: Dulce Shah ED Physician Leigh Ann Reynoso HPI: 05/27 15:54 This 75 yrs old Male presents to ER via Wheelchair with complaints of Foot Pain, Feet pm1 Swelling. 15:54 The patient presents with pain, that is acute. The complaints affect the left second pm1 toe and left third toe. Context: resulted from an unknown cause, the patient can fully bear weight, the patient is able to ambulate. Onset: The symptoms/episode began/occurred today. Modifying factors: The symptoms are alleviated by nothing. the symptoms are aggravated by nothing. Associated signs and symptoms: Pertinent positives: swelling, of the left third toe. Treatment prior to arrival includes: no previous treatment. Severity of symptoms: in the emergency department the symptoms are actually worse. 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 The patient has not recently seen a physician. Historical: - Allergies: 13:14 steroids; iw - PMHx: 13:14 Atrial Fib; CVA; Diabetes - IDDM; Diabetes - NIDDM; Hypertension; Pacemaker; Angina iw pectoris; - Immunization history:: Adult Immunizations up to date, Client reports receiving the 2nd dose of the Covid vaccine. - Social history:: Smoking status: Patient denies any tobacco usage or history of. Patient/guardian denies using alcohol. ROS: 15:54 Constitutional: Negative for fever, chills, and weight loss, Cardiovascular: Negative pm1 for chest pain, palpitations, and edema, Respiratory: Negative for shortness of breath, cough, wheezing, and pleuritic chest pain, Abdomen/GI: Negative for abdominal pain, nausea, vomiting, diarrhea, and constipation, Back: Negative for injury and pain, MS/Extremity: Negative for injury and deformity, Skin: Negative for injury, rash, and discoloration, Neuro: Negative for headache, weakness, numbness, tingling, and seizure. 15:54 All other systems are negative. Exam: 15:54 Constitutional: This is a well developed, well nourished patient who is awake, alert, pm1 and in no acute distress. Head/Face: Normocephalic, atraumatic. 15:54 Back: No spinal tenderness. No costovertebral tenderness. Full range of motion. 15:54 Cardiovascular: Exam negative for acute changes, Rate: normal, Rhythm: regular, Pulses: no pulse deficits are appreciated. 15:54 Respiratory: Exam negative for acute changes, respiratory distress, shortness of breath. 15:54 Skin: Appearance: normal except for affected area, cellulitis, that is moderate, on the left third toe. 15:54 Neuro: Exam negative for acute changes, Orientation: is normal, Motor: is normal, moves all fours. Vital Signs: 13:13 BP 97 / 50; Pulse 69; Resp 16; Temp 96.9; Pulse Ox 100% on R/A; Weight 93.89 kg; Height iw 6 ft. 0 in. (182.88 cm); Pain 10/10; 16:28 BP 111 / 48; Pulse 68; Resp 18; Temp 97.8(O); Pulse Ox 100% on R/A; ld1 17:58 BP 134 / 59; Pulse 73; Resp 18; Pulse Ox 98% on R/A; ld1 19:42 BP 162 / 71; Pulse 75; Resp 18; Pulse Ox 98% on R/A; ld1 13:13 Body Mass Index 28.07 (93.89 kg, 182.88 cm) iw MDM: 15:28 Patient medically screened. pm1 16:01 Counseling: I had a detailed discussion with the patient and/or guardian regarding: the pm1 historical points, exam findings, and any diagnostic results supporting the discharge/admit diagnosis, lab results, radiology results, the need for further work-up and treatment in the hospital. 17:45 Data reviewed: vital signs. Data interpreted: Pulse oximetry: on room air is 100 %. pm1 Interpretation: normal. 18:12 Physician consultation: Selam FALCON was contacted at 18:12, regarding admission, pm1 patient's condition, and will see patient in ED, shortly. 05/27 15:53 Order name: CBC with Diff; Complete Time: 17:03 pm1 05/27 15:53 Order name: CMP; Complete Time: 17:03 pm1 05/27 15:53 Order name: Blood Culture Adult (2) pm1 04/19 15:54 Order name: COVID-19 SARS RT PCR (Document "Date of Onset" if Symptomatic); Complete pm1 Time: 17:39 05/27 16:37 Order name: Lactate; Complete Time: 17:19 ss 05/27 16:37 Order name: Procalcitonin; Complete Time: 17:39 ss 05/27 13:15 Order name: Foot Left 3 View XRAY; Complete Time: 15:52 iw 05/27 15:53 Order name: IV Saline Lock; Complete Time: 16:28 pm1 Administered Medications: 16:28 Drug: Cefepime 2 grams Route: IVPB; Rate: 200 ml/hr; Infused Over: 30 mins; Site: right ld1 antecubital; 16:28 Drug: NS 0.9% 500 ml Route: IV; Rate: bolus; Site: right antecubital; ld1 16:59 Drug: vancoMYCIN 1 grams Route: IVPB; Infused Over: 2 hrs; Site: right antecubital; ld1 18:30 Follow up: Response: No adverse reaction; IV Status: Completed infusion; IV Intake: ld1 250ml 18:38 Drug: fentaNYL (PF) 25 mcg Route: IVP; Site: right antecubital; ld1 Disposition Summary: 05/27/21 18:11 Hospitalization Ordered Hospitalization Status: Inpatient Admission pm1 Provider: Ferdinand Soares pm1 Location: Telemetry/MedSurg (Inpatient) pm1 Condition: Stable pm1 Problem: new pm1 Symptoms: have improved pm1 Bed/Room Type: Standard pm1 Room Assignment: 228(05/27/21 18:35) bd Diagnosis - Osteomyelitis left third toe pm1 Forms: - Medication Reconciliation Form pm1 - SBAR form pm1 Addendum: 05/29/2021 18:39 Co-signature as Attending Physician, Leigh Ann vicente a2 Signatures: Dispatcher [employer] Shena Valdez Irene, RN RN Jorge Perales NP COMBINATION MACHINE TOOL SETTER pm1 Leigh Ann Reynoso MD MD ca2 Chelly Mckoy RN RN ld1 Corrections: (The following items were deleted from the chart) 05/27 18:35 18:11 pm1 bd
--- NOTE | 2021-05-27 18:20 | P.HP ---
Certification for Inpatient Patient admitted to: Inpatient With expected LOS: >2 Midnights Practitioner: I am a practitioner with admitting privileges, knowledge of patient current condition, hospital course, and medical plan of care. Services: Services provided to patient in accordance with Admission requirements found in Title 42 Section 412.3 of the Code of Federal Regulations Patient History Date of Service: 05/27/21 Reason for admission: Left foot pain. History of Present Illness: 75-year-old gentleman with a history of diabetes, atrial fibrillation on Eliquis anticoagulation, peripheral vascular disease presented to the ED with a complaint of left third toe pain of about 2 weeks duration. Patient presented to the ED due to worsening pain over the last 3 days. Patient with a history of peripheral vascular disease. He was admitted in 2020 for osteomyelitis of the right first toe, noted to have peripheral vascular disease by angiogram done by Dr. Hernandez. Patient states he had angioplasty done followed by amputation of the right great toe. He denies any fever. He hit the toe on a wall last 3 days and bled from it. Work-up in the emergency department is unremarkable, no leukocytosis. No fever and patient does not meet criteria for sepsis. X-ray done in the emergency department demonstrated bone loss-left third toe distal of phalange suggesting osteomyelitis. Patient hospitalized for further management. Allergies metformin [From Glucophage] Allergy (Verified 06/19/20 11:25) Passed out metoprolol Adverse Reaction (Verified 06/19/20 11:25) Passed out steroids Allergy (Unknown, Uncoded 06/19/20 11:25) Unknown Home Medications: Amiodarone HCl [Cordarone*] 200 mg PO DAILY 10/19/17 Apixaban [Eliquis *] 2.5 mg PO BID 10/19/17 Spironolactone [Aldactone*] 25 mg PO BID 10/19/17 glipiZIDE [Glipizide] 5 mg PO DAILY 10/19/17 Docusate Sodium [Stool Softener] 100 mg PO BID 04/26/20 Insulis Lispro MIX 75/25 [Humalog Mix 75/25*] 5 units SQ BID 05/09/20 Mens Multivitamin 1 tab PO DAILY 05/09/20 Vit C/E/Zn/Coppr/Lutein/Zeaxan [Preservision Areds 2 Softgel] 1 cap PO BID 05/09/20 Gabapentin [Neurontin*] 100 mg PO TID #90 cap 06/15/20 Hydrocodone 5/APAP 325 [[place] 5/325] 1 tab PO Q6H PRN #30 tab 06/15/20 - Past Medical/Surgical History Diabetic: Yes -: History CVA -: Atrial fibrillation now with pacemaker -: DM -: HTN -: History of blood clot in the right arm -: GERD -: Moderate pulmonary hypertension -: CHF, diastolic dysfunction -: R. total knee replacement -: kristian. cataract sx -: Right thigh staph inf. -: L. big toe amputated -: Back sx Psychosocial/ Personal History: The patient is . - Family History Mother -: Heart disease Father -: Heart disease Brother -: Heart disease, Hypertension, Diabetes, Cancer - Social History Alcohol use: No CD- Drugs: No Caffeine use: Yes Review of Systems Other: Except as documented, all other systems reviewed and negative. Physical Examination - Physical Exam General: Alert, In no apparent distress, Oriented x3 HEENT: Atraumatic, Mucous membr. moist/pink, Sclerae nonicteric Neck: Supple, JVD not distended Respiratory: Clear to auscultation bilaterally, Normal air movement Cardiovascular: Normal S1 S2, Edema (1+ bilateral lower extremity edema), Irregular heart rate/rhythm Capillary refill: <2 Seconds Gastrointestinal: Normal bowel sounds, Soft and benign, Non-distended, No tenderness Musculoskeletal: No swelling, Other (Left third toe deformity, ) Integumentary: Other (Mild erythema on the dorsum of the left foot, callus wound on the dorsum of the left third toe) Neurological: Normal speech, Normal strength at 5/5 x4 extr, Cranial nerves 3-12 intact Lymphatics: No axilla or inguinal lymphadenopathy - Studies Laboratory Data (last 24 hrs) 05/27/21 16:24: Sodium 141, Potassium 4.5, BUN 22 H, Creatinine 1.26, Glucose 97, Total Bilirubin 0.7, AST 16, ALT 23, Alkaline Phosphatase 106 05/27/21 16:24: WBC 8.8, Hgb 13.8, Hct 41.9, Plt Count 177 Assessment and Plan - Problems (Diagnosis) (1) Osteomyelitis of toe of left foot Current Visit: Yes Status: Acute (2) Chronic kidney disease, stage 3 Current Visit: No Status: Acute (3) Diabetes mellitus Onset Date: 11/29/17 Current Visit: No Status: Chronic Qualifiers: Diabetes mellitus type: type 2 Diabetes 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 Start IV vancomycin and cefepime. Follow blood cultures obtained in the ED. Consulted general surgery to evaluate for debridement versus amputation. Obtain arterial Doppler to assess for peripheral vascular disease. Insulin sliding scale for glucose management. Pain management as needed. Reconcile and continue with home medications. Hold Eliquis in case patient will need surgical debridement. - Advance Directives Does patient have a Living Will: No Does patient have a Durable POA for Healthcare: Yes
[2021-05-27] MEDS ORDERED: FENTANYL CITR 100 MCG/2 ML ONE (18:39)
[2021-05-27] MEDS ORDERED: VANCOMYCIN 1 GM in NA CHLORIDE 0.9% 250 ML IVPB SCH (21:09)
[2021-05-27] MEDS: INSULIN -REGULAR HUMAN 50 UNIT/0.5 ML ML SQ SCH (21:09)
[2021-05-27] MEDS ORDERED: ACETAMINOPHEN 500 MG TAB PO PRN (21:09)
[2021-05-27] MEDS ORDERED: ONDANSETRON 4 MG/2 ML VIAL IV PRN (21:09)
[2021-05-27 21:37] VITALS: BMI 28.8
[2021-05-27] MEDS: HYDROCODONE/APAP 5/325 MG TAB PO PRN (22:04)
[2021-05-27] MEDS: NA CHLORIDE 0.9% 1,000 ML IV SCH (22:05)
[2021-05-27] MEDS ORDERED: VANCOMYCIN 1.5 GM in NA CHLORIDE 0.9% 500 ML IVPB ONE (23:00)
[2021-05-27] MEDS ORDERED: VANCOMYCIN 500 MG/VIAL ONE (23:57)
[2021-05-28] MEDS: HYDROCODONE/APAP 5/325 MG TAB PO PRN ×3 (04:08→21:27)
[2021-05-28] MEDS: CEFEPIME 1 GM in NA CHLORIDE 0.9% 100 ML IV SCH ×2 (04:12→17:04)
[2021-05-28 05:39] LABS: Absolute Lymphocytes (CBC) 1.2 K/uL (0.7-4.9); Hematocrit 32.5 % (39.6-49.0); Lymphocytes % 15.9 % (15.3-44.8); MPV 7.6 fL (7.6-11.3); RBC Red Blood Cell Count 3.35 M/uL (4.33-5.43)
[2021-05-28 05:52] LABS: Protime INR 1.52
[2021-05-28 05:55] LABS: Magnesium 1.8 mg/dL (1.8-2.4); Phosphorus 2.3 mg/dL (2.5-4.9); Potassium 4.1 mmol/L (3.5-5.1)
[2021-05-28 07:29] LABS: Blood Morphology Comment NOT SEEN (NOT SEEN); Platelet Estimate ADEQ
[2021-05-28] MEDS: INSULIN -REGULAR HUMAN 50 UNIT/0.5 ML ML SQ SCH ×4 (07:30→21:28)
--- NOTE | 2021-05-28 07:34 | RAD REPORT ---
EXAM DESCRIPTION: US - Lower Extremity Arterial Bilat - 05/28/2021 6:14 am CLINICAL HISTORY: PVD w/ lt 3rd toe osteomyelitis COMPARISON: 04/25/20 FINDINGS: Color Doppler, grayscale, and spectral analysis was performed. Triphasic flow from the right common femoral artery through the distal superficial femoral artery. Mo nophasic flow at the right popliteal artery, dorsalis pedis artery, and no flow identified in the pos terior tibial artery. Triphasic flow in the left common femoral artery through the left superficial femoral artery. Monopha sic flow at the popliteal artery, posterior tibial artery, and left dorsalis pedis artery. IMPRESSION: Severe peripheral artery disease in the right lower extremity predominantly involving th e runoff vessels with monophasic flow at the popliteal artery, dorsalis pedis artery, and occluded po sterior tibial artery. Normal triphasic flow in the common femoral and superficial femoral arteries. Moderate to severe peripheral artery disease in the left lower extremity predominantly involving the runoff vessels and popliteal artery. The common femoral and superficial femoral arteries
[2021-05-28 08:20] LABS: Urine Appearance Clear (Clear); Urine Bilirubin Negative (Negative); Urine Blood Negative (Negative); Urine Color Yellow (Yellow); Urine Glucose Negative (Negative); Urine Microscopic Reflex NO UMIC; Urine Protein Negative (Negative); Urine Urobilinogen 0.2 mg/dL (0.2-1.0); Urine pH 5.5 (5.0-7.0)
[2021-05-28] MEDS ORDERED: MAGNESIUM SULFATE 1 gm IVPB 1 GM/100 ML BAG IV ONE (09:00)
[2021-05-28] MEDS: ENOXAPARIN 40 MG/0.4 ML SQ SCH (09:12)
[2021-05-28] MEDS ORDERED: HYDROMORPHONE HCL 1 MG/ML INJ IV PRN (10:20)
--- NOTE | 2021-05-28 16:00 | P.CNS ---
Date of Consult: 05/28/21 Reason for consult: Left third toe pain History of present illness: Patient is a 75-year-old gentleman well-known to me from previous admission who presents to the emergency room with with 2 weeks of increasing pain in the left third toe on the dorsum of the foot. Patient injured his third toe 3 days ago had some bleeding and then noticed erythema warmth and edema. He came to the emergency room for evaluation and treatment. X-ray done in the emergency room showed evidence of osteomyelitis. Patient was admitted for further work-up and treatment. Patient is awake and alert. Patient denies sore throat, runny nose, cough, headaches, dizziness, chest pain, fever or chills. Patient denies any purulent discharge. Review of systems: Otherwise unremarkable Past medical history: Type 2 diabetes, atrial fibrillation, PVD, hypertension, CVA, right arm DVT, GERD, pulmonary hypertension, CHF Past surgical history: Right knee replacement, cataract surgery, back surgery, bilateral great toe amputation Allergies: Metformin, metoprolol and steroids Social history: Patient denies smoking or drinking alcohol Family history: Heart disease Vital signs: Stable, afebrile Physical exam: Awake, alert and oriented x3 Head and neck exam: Cranial nerves II through XII grossly within normal limits, throat clear, neck supple, no JVD or neck masses appreciated Chest: Clear Heart: S1-S2 Abdomen: Soft Extremity: Diminished dorsalis pedis and posterior tibial pulses. Left third toe has erythema warmth and edema extending into the dorsum of the foot. There is some dried blood at the base of the nailbed. There is no open wound visible at this time. However, there may be an open wound once the scab falls off. There is no evidence of abscess or drainable fluid clinically visible. Neuro: Diminished sensation in the feet. Nonfocal. Diagnostic data: White count is normal, x-ray shows evidence of osteomyelitis on the left third toe, Doppler shows significant peripheral vascular disease right side greater than left side mostly in the popliteal artery and below. Assessment: Left third toe osteomyelitis with cellulitis and severe peripheral vascular disease Plan/recommendation: IV antibiotics as ordered, patient will need PICC line for 6 weeks of IV antibiotics. Patient wants to be transferred to [place] to see his interventional vascular doctor for further work-up and treatment. The transfer process has already been initiated. Dr. Soares is aware of the plan. Patient can follow-up with me in the wound healing center upon discharge from the [facility]. CC: Dr. Soares
--- NOTE | 2021-05-28 16:55 | P.PN ---
Subjective Date of Service: 05/28/21 Chief Complaint: Left foot pain. No new complaint. Patient quested to be transferred to [facility]. Physical Examination - Vital Signs Temperature: 97.0 F Blood Pressure: 138/75 Pulse: 105 Respirations: 16 Pulse Ox (%): 98 - Physical Exam General: Alert - Studies Laboratory Data (last 24 hrs) 05/27/21 16:24: Sodium 141, Potassium 4.5, BUN 22 H, Creatinine 1.26, Glucose 97, Total Bilirubin 0.7, AST 16, ALT 23, Alkaline Phosphatase 106 Assessment And Plan - Current Problems (Diagnosis) (1) Osteomyelitis of toe of left foot Current Visit: Yes Status: Acute (2) Chronic kidney disease, stage 3 Current Visit: No Status: Acute (3) Diabetes mellitus Onset Date: 11/29/17 Current Visit: No Status: Chronic Qualifiers: Diabetes mellitus type: type 2 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 moist/pink. Respiratory: Clear to auscultation bilaterally, Normal air movement Cardiovascular: Normal S1 S2, Edema (1+ bilateral lower extremity edema), Irregular heart rate/rhythm Gastrointestinal: Normal bowel sounds, Soft and benign, Non-distended, No tenderness Musculoskeletal: No swelling, Left third toe deformity. Integumentary:Mild erythema on the dorsum of the left foot, callus wound on the dorsum of the left third toe. Neurological: No focal motor deficit. Plan: Continue IV vancomycin and cefepime. Blood cultures: No growth to date. Dr. Mayer's input appreciated. Patient request to be transferred to [facility]. I am informed his barrel rifler has accepted patient for transfer. Arterial Doppler of lower extremities suggest severe bilateral peripheral vascular disease. Patient will need a repeat angiogram and revascularization. Insulin sliding scale for glucose management. Pain management as needed. Reconcile and continue with home medications. Resume Eliquis. Transfer to [facility] initiated.
[2021-05-28] MEDS: VANCOMYCIN 1.75 GM in NA CHLORIDE 0.9% 500 ML IVPB SCH (17:57)
[2021-05-28] MEDS: SPIRONOLACTONE 25 MG TABLET PO SCH (21:27)
[2021-05-28] MEDS: GABAPENTIN 100 MG CAP PO SCH (21:27)
[2021-05-28] MEDS: APIXABAN 2.5 MG TABLET PO SCH (21:27)
[2021-05-28] MEDS: NA CHLORIDE 0.9% 1,000 ML IV SCH (21:34)
[2021-05-28] MEDS ORDERED: VANCOMYCIN 1.75 GM in NA CHLORIDE 0.9% 500 ML IVPB SCH (23:00)
[2021-05-29] MEDS ORDERED: CEFEPIME 1 GM/VIAL ONE (06:02)
[2021-05-29] MEDS: CEFEPIME 1 GM in NA CHLORIDE 0.9% 100 ML IV SCH ×2 (06:02→16:25)
[2021-05-29] MEDS: HYDROCODONE/APAP 5/325 MG TAB PO PRN ×3 (06:02→21:25)
[2021-05-29] MEDS ORDERED: NA CHLORIDE 0.9% 100 ML ONE (06:03)
[2021-05-29 06:49] LABS: Absolute Lymphocytes (CBC) 1.3 K/uL (0.7-4.9); Lymphocytes % 17.7 % (15.3-44.8); MPV 7.6 fL (7.6-11.3); RBC Red Blood Cell Count 3.29 M/uL (4.33-5.43)
[2021-05-29 06:56] LABS: Potassium 4.1 mmol/L (3.5-5.1)
[2021-05-29] MEDS: INSULIN -REGULAR HUMAN 50 UNIT/0.5 ML ML SQ SCH ×4 (07:30→21:47)
[2021-05-29] MEDS: SERTRALINE HCL 50 MG TAB PO SCH (09:34)
[2021-05-29] MEDS: AMIODARONE HCL 200 MG TAB PO SCH (09:34)
[2021-05-29] MEDS: APIXABAN 2.5 MG TABLET PO SCH ×2 (09:34→21:25)
[2021-05-29] MEDS: SPIRONOLACTONE 25 MG TABLET PO SCH ×2 (09:35→21:25)
[2021-05-29] MEDS: GABAPENTIN 100 MG CAP PO SCH ×3 (09:35→21:25)
[2021-05-29] MEDS: ENOXAPARIN 40 MG/0.4 ML SQ SCH (09:36)
--- NOTE | 2021-05-29 11:33 | RAD REPORT ---
EXAM DESCRIPTION: XR Chest, 1 View CLINICAL HISTORY: Right picc line insertion TECHNIQUE: Frontal view of the chest. COMPARISON: No relevant prior studies available. FINDINGS: Lungs: Unremarkable. No consolidation. Pleural space: Unremarkable. No pneumothorax. Heart: Unremarkable. No cardiomegaly. Mediastinum: Unremarkable. Bones/joints: Multilevel spondylosis. No acute fracture. Vasculature: Thoracic aortic atherosclerosis. Tubes, lines and devices: Right upper extremity PICC tip projects over the mid superior vena cava. Left chest wall dual-lead pacer. IMPRESSION: Right upper extremity PICC tip projects over the mid superior vena cava. Electronically signed by: Vannessa Yu MD 05/28/2021 11:55 PM CDT Due to temporary technical issues with the PACS/Fluency reporting system, reports are being signed by the in house radiologist without review as a courtesy to ensure prompt reporting. The interpreting r adiologist is fully responsible for the content of the report.
[2021-05-29] MEDS: NA CHLORIDE 0.9% 1,000 ML IV SCH (16:29)
[2021-05-29] MEDS: VANCOMYCIN 1.75 GM in NA CHLORIDE 0.9% 500 ML IVPB SCH (16:48)
--- NOTE | 2021-05-29 16:48 | P.PN ---
Subjective Date of Service: 05/29/21 Chief Complaint: Left foot pain. Patient has no complaint today. He is ambulatory, eating well. He also reported good sleep. 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 HEENT: Mucous membr. moist/pink. Respiratory: Clear to auscultation bilaterally, Normal air movement Cardiovascular: Normal S1 S2, Edema (1+ bilateral lower extremity edema), Irregular heart rate/rhythm Gastrointestinal: Normal bowel sounds, Soft and benign, Non-distended, No tenderness Musculoskeletal: No swelling, Left third toe deformity. Integumentary: callus wound on the dorsum of the left third toe. Neurological: No focal motor deficit. Plan: Continue IV vancomycin and cefepime. Blood cultures: No growth to date. Seen by surgery - Dr. Guevara. Patient request to be transferred to [facility]. I am informed his textile designer has accepted patient for transfer. PICC line placed for prolonged IV antibiotics. Arterial Doppler of lower extremities suggest severe bilateral peripheral vascular disease. Patient will need a repeat angiogram and revascularization. Insulin sliding scale for glucose management. Pain management as needed. Continue home medications Resume Eliquis. Awaiting bed availability at [facility].
[2021-05-30] MEDS: CEFEPIME 1 GM in NA CHLORIDE 0.9% 100 ML IV SCH ×2 (04:55→17:46)
[2021-05-30] MEDS: AMIODARONE HCL 200 MG TAB PO SCH (09:00)
[2021-05-30] MEDS: INSULIN -REGULAR HUMAN 50 UNIT/0.5 ML ML SQ SCH ×4 (09:48→20:04)
[2021-05-30] MEDS: SPIRONOLACTONE 25 MG TABLET PO SCH ×2 (09:49→21:53)
[2021-05-30] MEDS: APIXABAN 2.5 MG TABLET PO SCH ×2 (09:49→21:54)
[2021-05-30] MEDS: GABAPENTIN 100 MG CAP PO SCH ×3 (09:49→21:54)
[2021-05-30] MEDS: SERTRALINE HCL 50 MG TAB PO SCH (09:49)
[2021-05-30] MEDS: NA CHLORIDE 0.9% 1,000 ML IV SCH (13:09)
--- NOTE | 2021-05-30 13:20 | P.PN ---
Subjective Date of Service: 05/30/21 Chief Complaint: Left foot pain. Patient has no new complaints Waiting for bed availability for transfer. Physical Examination - Vital Signs Temperature: 97.1 F Blood Pressure: 141/79 Pulse: 86 Respirations: 16 Pulse Ox (%): 99 Assessment And Plan - Current Problems (Diagnosis) (1) Osteomyelitis of toe of left foot Current Visit: Yes Status: Acute (2) Chronic kidney disease, stage 3 Current Visit: No Status: Acute (3) Diabetes mellitus Onset Date: 11/29/17 Current Visit: No Status: Chronic Qualifiers: Diabetes mellitus type: type 2 Diabetes mellitus jail insulin use: without jail use Diabetes mellitus complication status: with kidney complications Diabetes mellitus complication detail: with chronic kidney disease Chronic kidney disease stage 3 subtype: stage 3b (GFR 30-44) - Plan Physical Exam General: Alert, In no apparent distress. HEENT: Mucous membr. moist/pink. Respiratory: Clear to auscultation bilaterally, Normal air movement Cardiovascular: Normal S1 S2, Edema (1+ bilateral lower extremity edema), Irregular heart rate/rhythm Gastrointestinal: Normal bowel sounds, Soft and benign, Non-distended, No tenderness Musculoskeletal: No swelling. Integumentary: callus wound on the dorsum of the left third toe. Neurological: No focal motor deficit. Plan: Continue IV vancomycin and cefepime. Blood cultures: No growth to date. Seen by surgery - Dr. Mayer's. Patient request to be transferred to [facility]. I am informed his podia kvng has accepted patient for transfer. PICC line placed for prolonged IV antibiotics. Arterial Doppler of lower extremities suggest severe bilateral peripheral vascular disease. Patient will need a repeat angiogram and revascularization. Insulin sliding scale for glucose management. Pain management as needed. Continue home medications Continue Eliquis. Awaiting bed availability at [facility].
[2021-05-30] MEDS: VANCOMYCIN 1.75 GM in NA CHLORIDE 0.9% 500 ML IVPB SCH (17:00)
[2021-05-30] MEDS: HYDROCODONE/APAP 5/325 MG TAB PO PRN (17:55)
[2021-05-30] MEDS ORDERED: VANCOMYCIN 1.5 GM in NA CHLORIDE 0.9% 500 ML IVPB SCH (18:00)
[2021-05-31 05:04] VITALS: TEMP 97.5
[2021-05-31] MEDS: HYDROCODONE/APAP 5/325 MG TAB PO PRN (05:38)
[2021-05-31] MEDS: CEFEPIME 1 GM in NA CHLORIDE 0.9% 100 ML IV SCH (05:38)
[2021-05-31] MEDS: NA CHLORIDE 0.9% 1,000 ML IV SCH (05:39)
[2021-05-31] MEDS: INSULIN -REGULAR HUMAN 50 UNIT/0.5 ML ML SQ SCH (07:30)
[2021-05-31] MEDS: SERTRALINE HCL 50 MG TAB PO SCH (08:09)
[2021-05-31] MEDS: SPIRONOLACTONE 25 MG TABLET PO SCH (08:10)
[2021-05-31] MEDS: APIXABAN 2.5 MG TABLET PO SCH (08:10)
[2021-05-31] MEDS: AMIODARONE HCL 200 MG TAB PO SCH (08:11)
[2021-05-31] MEDS: GABAPENTIN 100 MG CAP PO SCH (08:11)
[2021-05-31 08:12] VITALS: BP 102/63
[2021-05-31 09:46] VITALS: O2SAT 96
--- NOTE | 2021-05-31 15:01 | P.DS ---
Admission Date: 05/27/21 Discharge Date: 05/31/21 Disposition: TRANSFER TO [facility] Reason for Admission: Left foot pain. 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 Patient presented to the ED due to worsening pain over the last 3 days. Patient with a history of peripheral vascular disease. He was admitted in 2020 for osteomyelitis of the right first toe, noted to have peripheral vascular disease by angiogram done by Dr. Hernandez. Patient states he had angioplasty done followed by amputation of the right great toe. He denies any fever. He hit the toe on a wall last 3 days and bled from it. Work-up in the emergency department is unremarkable, no leukocytosis. No fever and patient does not meet criteria for sepsis. X-ray done in the emergency department demonstrated bone loss-left third toe distal of phalange suggesting osteomyelitis. Patient hospitalized for further management. Hospital Course: And admitted to the medical floor and treated with broad-spectrum antibiotics. He was seen and evaluated by general surgery Dr. Mayer who recommended medical management. Patient furnace repairer at [facility] called for patient to be transferred to [facility] for further management. Arterial Doppler of the lower extremities demonstrated moderate to severe peripheral vascular disease. Patient will therefore need angiogram and possible revascularization. No fever, no leukocytosis during the hospital stay. Blood cultures yielded no growth. Patient has been accepted and he is clinically stable for transfer. Vital Signs/Physical Exam: Temp Pulse Resp BP Pulse Ox 97.5 F 80 18 102/63 96 05/31/21 08:00 05/31/21 08:10 05/31/21 08:00 05/31/21 08:10 05/31/21 08:00 General: Alert, In no apparent distress, Oriented x3 HEENT: Mucous membr. moist/pink Neck: JVD not distended Respiratory: Clear to auscultation bilaterally, Normal air movement Cardiovascular: Regular rate/rhythm, Normal S1 S2, Edema (Bilateral legs) Gastrointestinal: Soft and benign, Non-distended Musculoskeletal: Swelling Integumentary: Other (Bilateral venous stasis dermatitis) Laboratory Data at Discharge: WBC 7.5 K/uL (4.3-10.9) 05/29/21 06:16 Hgb 10.7 g/dL (13.6-17.9) L 05/29/21 06:16 Hct 32.0 % (39.6-49.0) L 05/29/21 06:16 Plt Count 164 K/uL (152-406) 05/29/21 06:16 PT 16.9 SECONDS (9.5-12.5) H 05/28/21 05:06 INR 1.52 05/28/21 05:06 Sodium 143 mmol/L (136-145) 05/29/21 06:16 Potassium 4.1 mmol/L (3.5-5.1) 05/29/21 06:16 BUN 19 mg/dL (7-18) H 05/29/21 06:16 Creatinine 1.09 mg/dL (0.55-1.3) 05/29/21 06:16 Glucose 121 mg/dL (74-106) H 05/29/21 06:16 Phosphorus 2.3 mg/dL (2.5-4.9) L 05/28/21 05:06 Magnesium 2.0 mg/dL (1.8-2.4) 05/29/21 06:16 Total Bilirubin 0.7 mg/dL (0.2-1.0) 05/27/21 16:24 AST 16 U/L (15-37) 05/27/21 16:24 ALT 23 U/L (12-78) 05/27/21 16:24 Alkaline Phosphatase 106 U/L (45-117) 05/27/21 16:24 Home Medications: Amiodarone HCl [Cordarone*] 200 mg PO DAILY 10/19/17 Apixaban [Eliquis *] 2.5 mg PO BID 10/19/17 Spironolactone [Aldactone*] 25 mg PO BID 10/19/17 glipiZIDE [Glipizide] 5 mg PO DAILY 10/19/17 Mens Multivitamin 1 tab PO DAILY 05/09/20 Vit C/E/Zn/Coppr/Lutein/Zeaxan [Preservision Areds 2 Softgel] 1 cap PO BID 05/09/20 Gabapentin [Neurontin*] 100 mg PO TID #90 cap 06/15/20 Sertraline HCl 25 mg PO DAILY 05/27/21 Followup: Dulce Shah NP [Primary Care Provider] -
== END 2021-05-31 10:59 | disposition short-term general hospital (02) | DRG 638 ==
LOC: ER 11:54 → ERHOLD 18:01 → 2ND 20:05
PROVIDERS: ADMIT Internal Medicine; ATTEND Internal Medicine
PROC: 02HV33Z Insertion of Infusion Device into Superior Vena Cava, Percutaneous Approach (ICD-10-PCS; principal; 2021-05-29)
DX: E11.69 Type 2 diabetes mellitus with other specified complication (principal); M86.172 Other acute osteomyelitis, left ankle and foot; I13.0 Hypertensive heart and chronic kidney disease with heart failure and stage 1 through stage 4 chronic kidney disease, or unspecified chronic kidney disease; I50.32 Chronic diastolic (congestive) heart failure; I48.91 Unspecified atrial fibrillation; E11.22 Type 2 diabetes mellitus with diabetic chronic kidney disease; N18.32 Chronic kidney disease, stage 3b; K21.9 Gastro-esophageal reflux disease without esophagitis; E11.51 Type 2 diabetes mellitus with diabetic peripheral angiopathy without gangrene; Z79.01 Long term (current) use of anticoagulants; Z96.651 Presence of right artificial knee joint; Z86.73 Personal history of transient ischemic attack (TIA), and cerebral infarction without residual deficits; Z89.412 Acquired absence of left great toe; Z20.822 Contact with and (suspected) exposure to COVID-19
CPT/HCPCS: 36415; 36569; 71045; 80048; 80053; 80202; 81003; 82947; 83605; 83735; 84100; 84145; 85025; 85610; 87040; 93925; 96365; 96366; 96375; 99285; J0692; J1650; J1815; J3010; J3370; J3475; J7030; J7040; J7050; U0003

== ENCOUNTER 2021-06-30 11:46 | Inpatient (IN) | payer OTHER ==
--- OUTSIDE RECORDS SUMMARY | 2021-06-30 11:57 | XMS REPORT | Continuity of Care Document ---
:1945 Author Organization [facility] t Address [address] [place] [address] Care Team Providers Name Role Phone Emiliano Velásquez MD Primary Care Physician ESTEBAN DUONG Attending Clinician Unavailable RUBIO SCHNEIDER Attending Clinician Unavailable ELICIA JOHN Attending Clinician Unavailable Esteban Duong DPM Attending Clinician Edward WATTS Attending Clinician Eduin WATTS Attending Clinician Eduin WATTS Attending Clinician EDUIN Attending Clinician Unavailable Sunny ROPER, N Attending Clinician Unavailable Esteban Duong DPM Attending Clinician ESTEBAN DUONG Attending Clinician Unavailable Ponce Staley Attending Clinician Tj Chahal MD Attending Clinician Torie Saenz MD Attending Clinician Lyudmila Sellers MD Attending Clinician Bandar WATTS Attending Clinician Hossein Raphael MD Attending Clinician Mary Rutherford Attending Clinician Unavailable DANNY Attending Clinician Unavailable CHELY Admitting Clinician Unavailable EDUIN Admitting Clinician Unavailable TORIE SAENZ Admitting Clinician Unavailable DANNY Admitting Clinician Unavailable Payers Payer Name Policy Type Policy Number Effective Date Expiration Date Juanita SHELTON DUAL [id number] COMPLETE SNP [facility] ZZZO-MEDICARE - [id number] [facility] CIGNA MEDICARE - [id number] RNPO PCP TOTALCARE SNP [id number] 2016 MEDICARE O-CIGNA 00:00:00 WELLMED MEDICARE [id number] 2021 00:00:00 CIG Family [place] [place] [id number] 2016 O 00:00:00 Problems Condition Condition Condition Status Onset Resolution Last Treating Co mments Source Name Details Category Date Date Treatment Clinician Date Status Status Disease Active [facility] post post 5-12 College amputation amputation 00:00: of of lesser of lesser 00 Medi perla toe of toe of e left foot left foot (HCCode) (HCCode) Osteomyeli Osteomyeli Disease Active [facility] PAD PAD Disease Active 2020-[address] [facility] (periphera (periphera 0-04 Yuliya kes l artery l artery 00:00: Medica l disease) disease) 00 Center Right foot Right foot Disease Active [facility] pain pain 8-27 College 00:00: of 00 Medicin e Status Status Disease Active [facility] 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 00 Medici n great toe great toe e (HCCode) (HCCode) Post-opera Post-opera Disease Active [facility] tive state tive state 6-25 Co llege 00:00: of 00 Medicin e Encounter Encounter Disease Active [facility] for post for post 625 Colleg e surgical surgical 00:00: of wound wound 00 Medicin check check e PAD PAD Disease Active [facility] (periphera (periphera 6-25 Co llege l artery l artery 00:00: of disease) disease) 00 Medici n (HCCode) (HCCode) e Type 2 Type 2 Disease Active [facility] diabetes diabetes 08-02 Colleg e mellitus mellitus 00:00: of with with 00 Medicin diabetic diabetic e peripheral peripheral angiopathy angiopathy without without gangrene, gangrene, without without long-term long-term current current use of use of insulin insulin (HCCode) (HCCode) Right foot Right foot Disease Active [facility] 5[facility]18 [facility] Diabetes Diabetes Disease [facility] 2016[facility] mellitus [facility] Hypertensi Hypertensi Disease Active 2016-[address] on on 2-23 [facility] CHF CHF Disease Active 2016-[address] [facility] (congestiv (congestiv 2-23 [facility]ya kes e heart e heart 00:00: Medical failure) failure) 00 Center Atrial Atrial Disease Active 2016-[address] [facility] fibrillati fibrillati 2-23 Yuliya kes on on 00:00: Medical 00 Center 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-23 [facility] 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 2-23 Yuliya kes 00:00: Medical 00 Center HEIDI (acute HEIDI (acute Disease Active 2016-[address] kidney kidney 2-23 [facility] injury) injury) 00:00: Medical 00 [place] Pneumonia Pneumonia Disease Active 2016-[address] 2-22 [facility] 00 [place] PAROXYSMAL Diagnosis Active 2016-09-14 Memoria AFIB, 08-28 10:10:00 l BRADYCARDI 00:00: Pepe smith A PAROXYSMAL 00 AFIB, BRADYCARDI A Active 08/28/2016 [facility] CCL/DUAL Diagnosis Active 2016-08-31 Tracy maldonado PMAKER 08-28 15:00:00 l IMPLANT/BS CCL/DUAL 00:00: He rmann /DX: PMAKER 00 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 Active 08/28/2016 [facility] 362.56 Diagnosis Active 2014-06-04 Mem oria EPIRETINAL 02-14 10:13:00 l MEMBRANE 362.56 00:00: Pepe smith LEFT EYE EPIRETINAL 00 MEMBRANE LEFT EYE Active 02/14/2014 [facility] Syncope Problem Resolve 2016-09-15 Mem oria (disorder) d 00:18:55 l Syncope Tino (disorder) Resolved Problem 09/15/2016 [facility] Bradycardi Problem Resolve 2016-09-15 Memoria a d 00:18:55 l (disorder) Pepe n Bradycardi a (disorder) Resolved Problem 09/15/2016 [facility] Chest pain Problem Resolve 2016-09-15 Memoria (finding) d 00:18:55 l Chest Tino pain (finding) Resolved Problem 09/15/2016 [facility] Cerebrovas Problem Resolve 2016-09-15 Memoria cular d 00:18:55 l accident [place] (disorder) Cerebrovas cular accident (disorder) Resolved Problem 09/15/2016 [facility] Dizziness Problem Resolve 2016-09-15 M emoria (finding) d 00:18:55 l Tino Dizziness (finding) Resolved Problem 09/15/2016 [facility] Edema Problem Resolve 2016-09-15 Niko og (finding) d 00:18:55 l Edema [place] (finding) Resolved Problem 09/15/2016 [facility] Allergies, Adverse Reactions, Alerts Allergy Allergy Status Severity Reaction(s) Onset Inactive Treating Comm ents Source Name Type Date Date Clinician Metformi Propensi Active [facility] n ty to 5-18 College adverse 00:00: of reaction 00 Medicin s to e drug Metformi Propensi Active Pt states [facility] ty to 5-18 [facility] is not [facility] adverse 00:00: allergic Medical reaction 00 to Center s anything Metoprol Propensi Active [facility] states [facility] to 5-18 not [facility] adverse 00:00: allergic Medical reaction 00 to Center s anything METFORMI Allergy Active [facility] N 5[facility]18 [facility] METOPROL Allergy Active [facility] OL 5-18 [facility] Metoprol Propensi Active Shortness Of 2017-02 [facility] ol ty to Breath 1-13 College adverse 00:00: of reaction 00 Medicin s to e drug NO KNOWN Allergy Active [facility] Family History Family Member Diagnosis Comments Start Date Stop Date Source Natural brother Cancer [facility] Natural brother Diabetes [facility] Natural brother Hypertension [facility] Natural mother Heart disease [facility] Natural sister Hypertension [facility] Social History Social Habit Start Date Stop Date Quantity Comments Source History [facility] Non-Med Medical Center History [facility] [employer] Places Medical Ce nter Lived Alcohol intake 2021-06-19 2021-06-19 Current [facility] Col lege 00:00:00 00:00:00 non-drinker of of Medicin e alcohol (finding) History [facility] 2021-05-31 2021-05-[address] [facility] Med 00:00:00 00:00:[address] History [facility] 2021-05-31 2021-05-[address] [facility] [employer] Unable to 00:00:00 00:00:00 Medical Center Pay History [facility] 2021-05-31 2021-05-[address] [facility] [employer] Homeless 00:00:00 00:00:00 Medical Center Last Year Tobacco Comment 2020-06-26 2020-06-26 quit 30 yrs ago [facility] 00:00:00 00:00:00 Medical Center Tobacco use and 2016-12-14 2016-12-14 Smokeless tobacco [facility] [employer] exposure 00:00:00 00:00:00 non-user of Medicine Social History 2014-03-05 2014-03-05 [facility] 17:12:04 17:12:04 Sex [birth year] [facility] 00:00:00 00:00:00 of Medicine Smoking Status Start Date Stop Date Source Former smoker 2017-01-30 00:00:00 2017-01-30 00:00:00 [facility] Never smoked tobacco [facility] Stew ege of Medicine Medications Ordered Filled Start Stop Current Ordering Indication Dosage Frequency Signature Comments Components Source Medication Medication Date Date Medication? Clinician (SIG) Name Name glipiZIDE Yes 10mg Take 10 mg [facility] (GLUCOTROL) 5-05 by mouth Stew ege 10 MG 13:16: two times of tablet 31 daily. Medicin e Apixaban Yes Take by Yvonne raymond (ELIQUIS) 5-05 mouth two Colle ge 2.5 MG TABS 13:16: times of 31 daily. Medicin e amiodarone Yes 200mg Take 200 [facility] (PACERONE) 5-05 mg by College 200 MG 13:16: mouth of tablet 31 daily. Medicin e SPIRONOLACT Yes Take by [facility] ONE OR 5-05 mouth. College 13:16: of 31 Medicin e doxycycline 2021- Yes [id number] 100mg Take 1 [facility] (ADOXA) 100 5-04 05-15 Tablet by Co llege MG tablet 00:00: 04:59 mouth two of 00 :00 times Medicin daily for e 10 days. mupirocin 2021- Yes 1g QD Apply [address] (BACTROBAN) 06-06 05-06 topically Yluiya kes 2 % 00:00: 23:59 daily for Medical ointment 00 :00 7 days. [place] amiodarone Yes 200mg QD Take [address] (PACERONE) 4-28 mg by [facility] 200 MG 17:01: mouth Medical tablet 40 daily. [place] spironolact Yes 25mg Q.5D Take [address] one 4-28 by mouth 2 [facility] (ALDACTONE) 17:01: (two) Medic al 25 MG 40 times Center tablet daily. multivitami Yes 1{capsu QD Take [address] n capsule 4- le} capsule by Luke s 17:01: mouth Medical 40 daily. [place] sertraline Yes 25mg QD Take [address] (ZOLOFT) 25 4-28 by mouth Luke s MG tablet 17:01: daily. Medica l 40 [place] glipiZIDE 2021- No 5mg QD Take [address] (GLUCOTROL) -28 04-28 by mouth Cl es 10 MG 07:57: 00:00 daily . Medical tablet 25 :00 [place] HYDROcodone Yes 1{tbl} Take [address] -acetaminop 4-28 tablet by Cl es hen (NORCO 00:00: mouth Medica l 5-325) 00 every 6 Center 5-325 mg (six) per tablet hours as needed for Pain. Max Daily Amount: 4 tablets aspirin EC 2022- Yes 81mg Take 81 mg [facility] 81 MG 06-05-29 by mouth. College tablet 00:00: 04:59 of 00 :00 Medicin e aspirin 81 2022- Yes 81mg QD Take [address] [facility] [facility] MG chewable 06-05 tablet (81 L ukes tablet 00:00: 23:59 mg total) Medic al 00 :00 by mouth Center daily. amoxicillin 2021- Yes 500mg Q.5D Take [address] (AMOXIL) 06-05 05-05 tablet [facility] 500 MG 00:00: 23:59 (500 mg Medical tablet 00 :00 total) by Center mouth 2 (two) times daily for 7 days. glipiZIDE 2020-02 Yes 10mg Take 10 mg [facility] (GLUCOTROL) 0-20 by mouth Stew ege 10 MG 13:27: two times of tablet 32 daily. Medicin e Apixaban 2020-02 Yes Take by [facility] (ELIQUIS) 0-20 mouth two Colle ge 2.5 MG TABS 13:27: times of 32 daily. Medicin e amiodarone 2020-02 Yes 200mg Take 200 [facility] (PACERONE) 0-20 mg by [place] 200 MG 13:27: mouth of tablet 32 daily. Medicin e SPIRONOLACT 2020-02 Yes Take by [facility] ONE OR 0-20 mouth. College 13:27: of 32 Medicin e docusate 2020-02- No 100mg Q.5D Take [address] sodium 0-04 10-04 mg by [facility] (COLACE) 08:37: 00:00 mouth 2 Medic al 100 MG 27 :00 (two) Center capsule times daily. glipiZIDE Yes 10mg Take 10 mg [facility] (GLUCOTROL) 9-22 by mouth Stew ege 10 MG 09:03: two times of tablet 58 daily. Medicin e Apixaban Yes Take by [facility] (ELIQUIS) 9-22 mouth two Colle ge 2.5 MG TABS 09:03: times of 58 daily. Medicin e amiodarone Yes 200mg Take 200 [facility] (PACERONE) 9-22 mg by [place] 200 MG 09:03: mouth of tablet 58 daily. Medicin e SPIRONOLACT 1-0 Yes Take by [facility] ONE OR 9-22 mouth. [place] 09:03: of 58 Medicin e glipiZIDE 1-0 Yes 10mg Take 10 mg [facility] (GLUCOTROL) 9-22 by mouth Stew ege 10 MG 09:03: two times of tablet 58 daily. Medicin e Apixaban 1-0 Yes Take by [facility] (ELIQUIS) 9-22 mouth two Colle ge 2.5 MG TABS 09:03: times of 58 daily. Medicin e amiodarone 1-0 Yes 200mg Take 200 [facility] (PACERONE) 9-22 mg by [place] 200 MG 09:03: mouth of tablet 58 daily. Medicin e SPIRONOLACT 1-0 Yes Take by [facility] ONE OR 9-22 mouth. [place] 09:03: of 58 Medicin e glipiZIDE 1-0 Yes 10mg Take 10 mg [facility] (GLUCOTROL) 9-22 by mouth Stew ege 10 MG 09:03: two times of tablet 58 daily. Medicin e Apixaban 1-0 Yes Take by [facility] (ELIQUIS) 9-22 mouth two Colle ge 2.5 MG TABS 09:03: times of 58 daily. Medicin e amiodarone 1-0 Yes 200mg Take 200 [facility] (PACERONE) 9-22 mg by [place] 200 MG 09:03: mouth of tablet 58 daily. Medicin e SPIRONOLACT 2020-0 Yes Take by [facility] ONE OR 9-22 mouth. [place] 09:03: of 58 Medicin e glipiZIDE 1-0 Yes 10mg Take 10 mg [facility] (GLUCOTROL) 9-22 by mouth Stew ege 10 MG 09:03: two times of tablet 58 daily. Medicin e Apixaban 1-0 Yes Take by [facility] (ELIQUIS) 9-22 mouth two Colle ge 2.5 MG TABS 09:03: times of 58 daily. Medicin e amiodarone 2021-0 Yes 200mg Take 200 [facility] (PACERONE) 9-22 mg by [place] 200 MG 09:03: mouth of tablet 58 daily. Medicin e SPIRONOLACT 2021-0 Yes Take by [facility] ONE OR 10-30 mouth. [place] 09:03: of 58 Medicin e Dabigatran Yes Take by [facility] Etexilate 8- mouth. [place] Mesylate 13:36: of (PRADAXA) 34 Medicin 150 MG CAPS e glipiZIDE 0 Yes 10mg Take 10 mg [facility] (GLUCOTROL) 8- by mouth Stew ege 10 MG 13:36: two times of tablet 34 daily. Medicin e valsartan Yes 320mg Take 320 [facility] (DIOVAN) 8-26 mg by [place] 320 MG 13:36: mouth of tablet 34 daily. Medicin e furosemide Yes 40mg Take 40 mg [facility] (LASIX) 40 10-03 by mouth Colle ge MG tablet 13:36: daily. of 34 Medicin e Apixaban [facility] (ELIQUIS) 8- mouth two Colle ge 2.5 MG TABS 13:36: times of 34 daily. Medicin e amiodarone Yes 200mg Take 200 [facility] (PACERONE) 8- mg by [place] 200 MG 13:36: mouth of tablet 34 daily. Medicin e SPIRONOLACT Yes Take by [facility] ONE OR - mouth. [place] 13:36: of 34 Medicin e collagenase Yes [id number] Apply to [facility] 250 UNIT/GM 10-03 [facility] ointment 00:00: wound on of 00 great big Medicin toe amp e site Wound measuremen ts 1.0 cm X 1.0 Cm gabapentin 2020-0 Yes [id number] 100mg Take 1 [facility] (NEURONTIN) 10-03 9107 capsule by Co llege 100 MG 00:00: mouth 3 of capsule 00 times Medicin daily. e doxycycline 0 Yes [id number] 100mg Take 1 [facility] (ADOXA) 100 10-03 Tablet by Col lege MG tablet 00:00: mouth two of 00 times Medicin daily. e collagenase 0 Yes [id number] Apply to [facility] 250 UNIT/GM 10-03 [facility] ointment 00:00: wound on of 00 great big Medicin toe amp e site Wound measuremen ts 1.0 cm X 1.0 Cm collagenase 202-0 Yes [id number] Apply to [facility] 250 UNIT/GM 8-26 [facility] ointment 00:00: wound on of 00 great big Medicin toe amp e site Wound measuremen ts 1.0 cm X 1.0 Cm gabapentin 202-0 Yes [id number] 100mg Take 1 [facility] (NEURONTIN) 8-26 9107 capsule by Co llege 100 MG 00:00: mouth 3 of capsule 00 times Medicin daily. e doxycycline 2020-0 Yes [id number] 100mg Take 1 [facility] (ADOXA) 100 8-26 Tablet by Col lege MG tablet 00:00: mouth two of 00 times Medicin daily. e gabapentin 2020-0 Yes [id number] 100mg Take 1 [facility] (NEURONTIN) 8-26 9107 capsule by Co llege 100 MG 00:00: mouth 3 of capsule 00 times Medicin daily. e collagenase 2020-0 Yes [id number] Apply to [facility] 250 UNIT/GM 826 [facility] ointment 00:00: wound on of 00 great big Medicin toe amp e site Wound measuremen ts 1.0 cm X 1.0 Cm doxycycline 2020-0 Yes [id number] 100mg Take 1 [facility] (ADOXA) 100 8-26 Tablet by Col lege MG tablet 00:00: mouth two of 00 times Medicin daily. e gabapentin 2020-0 Yes [id number] 100mg Take 1 [facility] (NEURONTIN) 8-26 9107 capsule by Co llege 100 MG 00:00: mouth 3 of capsule 00 times Medicin daily. e doxycycline 2020-0 Yes [id number] 100mg Take 1 [facility] (ADOXA) 100 8-26 Tablet by Col lege MG tablet 00:00: mouth two of 00 times Medicin daily. e collagenase 2020-0 Yes [id number] Apply to [facility] 250 UNIT/GM 826 [facility] ointment 00:00: wound on of 00 great big Medicin toe amp e site Wound measuremen ts 1.0 cm X 1.0 Cm gabapentin 202-0 Yes [id number] 100mg Take 1 [facility] (NEURONTIN) 8-26 9107 capsule by Co llege 100 MG 00:00: mouth 3 of capsule 00 times Medicin daily. e doxycycline Yes [id number] 100mg Take 1 [facility] (ADOXA) 100 8-26 Tablet by Col lege MG tablet 00:00: mouth two of 00 times Medicin daily. e collagenase 0 Yes [id number] Apply to [facility] 250 UNIT/GM 8-26 [facility] ointment 00:00: wound on of 00 great big Medicin toe amp e site Wound measuremen ts 1.0 cm X 1.0 Cm gabapentin Yes [id number] 100mg Take 1 [facility] (NEURONTIN) 8 9107 capsule by Co llege 100 MG 00:00: mouth 3 of capsule 00 times Medicin daily. e collagenase Yes [id number] Apply to [facility] 250 UNIT/GM 826 [facility] ointment 00:00: wound on of great big Medicin toe amp e site Wound measuremen ts 1.0 cm X 1.0 Cm gabapentin Yes [id number] 100mg Take 1 [facility] (NEURONTIN) 8 9107 capsule by Co llege 100 MG 00:00: mouth 3 of capsule 00 times Medicin daily. e doxycycline Yes [id number] 100mg Take 1 [facility] (ADOXA) 100 8- Tablet by Col lege MG tablet 00:00: mouth two of 00 times Medicin daily. e Dabigatran Yes Take by [facility] Etexilate 09-04 mouth. [place] Mesylate 10:40: of (PRADAXA) 39 Medicin 150 MG CAPS e glipiZIDE Yes 10mg Take 10 mg [facility] (GLUCOTROL) 28 by mouth Ste[facility] 10 MG 10:40: two times of tablet 39 daily. Medicin e valsartan Yes 320mg Take 320 [facility] (DIOVAN) 7-28 mg by [place] 320 MG 10:40: mouth of tablet 39 daily. Medicin e furosemide Yes 40mg Take 40 mg [facility] (LASIX) 40 7- by mouth Colle ge MG tablet 10:40: daily. of 39 Medicin e Apixaban Yes Take by [facility] (ELIQUIS) 7- mouth two Colle ge 2.5 MG TABS 10:40: times of 39 daily. Medicin e amiodarone 0 Yes 200mg Take 200 [facility] (PACERONE) 7-28 mg by [place] 200 MG 10:40: mouth of tablet 39 daily. Medicin e SPIRONOLACT 0 Yes Take by [facility] ONE OR 7-28 mouth. [place] 10:40: of 39 Medicin e Dabigatran [address] [facility] Etexilate 7-28 mouth. [place] Mesylate 10:40: of (PRADAXA) 39 Medicin 150 MG CAPS e glipiZIDE 0 Yes 10mg Take 10 mg [facility] (GLUCOTROL) 7-28 by mouth Stew ege 10 MG 10:40: two times of tablet 39 daily. Medicin e valsartan 0 Yes 320mg Take 320 [facility] (DIOVAN) 7-28 mg by [place] 320 MG 10:40: mouth of tablet 39 daily. Medicin e furosemide 0 Yes 40mg Take 40 mg [facility] (LASIX) 40 7-28 by mouth Colle ge MG tablet 10:40: daily. of 39 Medicin e Apixaban 0 Yes Take by [facility] (ELIQUIS) 7-28 mouth two Colle ge 2.5 MG TABS 10:40: times of 39 daily. Medicin e amiodarone 0 Yes 200mg Take 200 [facility] (PACERONE) 7-28 mg by [place] 200 MG 10:40: mouth of tablet 39 daily. Medicin e SPIRONOLACT 0 Yes Take by [facility] ONE OR 7-28 mouth. [place] 10:40: of 39 Medicin e Dabigatran [address] [facility] Etexilate 7-14 mouth. [place] Mesylate 10:25: of (PRADAXA) 59 Medicin 150 MG CAPS e glipiZIDE 2020-0 Yes 10mg Take 10 mg [facility] (GLUCOTROL) 7-14 by mouth Stew ege 10 MG 10:25: two times of tablet 59 daily. Medicin e valsartan 2020-0 Yes 320mg Take 320 [facility] (DIOVAN) 7-14 mg by [place] 320 MG 10:25: mouth of tablet 59 daily. Medicin e furosemide 2021-0 Yes 40mg Take 40 mg [facility] (LASIX) 40 08-21 by mouth Colle ge MG tablet 10:25: daily. of 59 Medicin e Apixaban 0 Yes Take by [facility] (ELIQUIS) 08-21 mouth two Colle ge 2.5 MG TABS 10:25: times of 59 daily. Medicin e amiodarone 0 Yes 200mg Take 200 [facility] (PACERONE) 08-21 mg by [place] 200 MG 10:25: mouth of tablet 59 daily. Medicin e SPIRONOLACT Yes Take by [facility] ONE OR 08-21 mouth. College 10:25: of 59 Medicin e doxycycline 0 Yes [id number] 100mg Take 1 [facility] (ADOXA) 100 08-21 [id number] Tablet by C ollege MG tablet 00:00: mouth two of 00 times Medicin daily. e mupirocin 0 Yes [id number] Apply to [facility] (BACTROBAN) 08-21 [id number] wound site College 2 % 00:00: daily of ointment 00 Medicin e doxycycline 0 Yes [id number] 100mg Take 1 [facility] (ADOXA) 100 08-21 [id number] Tablet by C ollege MG tablet 00:00: mouth two of 00 times Medicin daily. e mupirocin 2020-0 Yes [id number] Apply to [facility] (BACTROBAN) 08-21 [id number] wound site College 2 % 00:00: daily of ointment 00 Medicin e mupirocin 2020-0 Yes [id number] Apply to [facility] (BACTROBAN) 08-21 [id number] wound site College 2 % 00:00: daily of ointment 00 Medicin e mupirocin 2020-0 Yes [id number] Apply to [facility] (BACTROBAN) 08-21 [id number] wound site College 2 % 00:00: daily of ointment 00 Medicin e mupirocin 2020-0 Yes [id number] Apply to [facility] (BACTROBAN) 08-21 [id number] wound site College 2 % 00:00: daily of ointment 00 Medicin e mupirocin 2020-0 Yes [id number] Apply to [facility] (BACTROBAN) 08-21 [id number] wound site College 2 % 00:00: daily of ointment 00 Medicin e mupirocin 0 Yes [id number] Apply to [facility] (BACTROBAN) 08-21 [id number] wound site [place] 2 % 00:00: daily of ointment 00 Medicin e mupirocin 2020-0 Yes [id number] Apply to [facility] (BACTROBAN) 08-21 [id number] wound site [place] 2 % 00:00: daily of ointment 00 Medicin e mupirocin 0 Yes [id number] Apply to [facility] (BACTROBAN) 08-21 [id number] wound site [place] 2 % 00:00: daily of ointment 00 Medicin e doxycycline 2020- No [id number] 100mg Take 1 [facility] (ADOXA) 100 08-21 [id number] Tablet by [place] MG tablet 00:00: 00:00 mouth two of 00 :00 times Medicin daily. e Dabigatran Yes Take by [facility] Etexilate 6-30 mouth. [place] Mesylate 09:35: of (PRADAXA) 59 Medicin 150 MG CAPS e glipiZIDE Yes 10mg Take 10 mg [facility] (GLUCOTROL) 6-30 by mouth [facility] 10 MG 09:35: two times of tablet 59 daily. Medicin e valsartan Yes 320mg Take 320 [facility] (DIOVAN) 6-30 mg by [place] 320 MG 09:35: mouth of tablet 59 daily. Medicin e furosemide Yes 40mg Take 40 mg [facility] (LASIX) 40 6-30 by mouth Colle ge MG tablet 09:35: daily. of 59 Medicin e Apixaban 0 Yes Take by [facility] (ELIQUIS) 6-30 mouth two Colle ge 2.5 MG TABS 09:35: times of 59 daily. Medicin e amiodarone 0 Yes 200mg Take 200 [facility] (PACERONE) 6-30 mg by [place] 200 MG 09:35: mouth of tablet 59 daily. Medicin e SPIRONOLACT Yes Take by [facility] ONE OR 6-30 mouth. College 09:35: of 59 Medicin e Dabigatran 2021-[address] [facility] [facility] Etexilate 6-17 mouth. [place] Mesylate 10:35: of (PRADAXA) 15 Medicin 150 MG CAPS e glipiZIDE 0 Yes 10mg Take 10 mg [facility] (GLUCOTROL) 6-17 by mouth [facility] 10 MG 10:35: two times of tablet 15 daily. Medicin e valsartan 0 Yes 320mg Take 320 [facility] (DIOVAN) 6-17 mg by [place] 320 MG 10:35: mouth of tablet 15 daily. Medicin e furosemide 0 Yes 40mg Take 40 mg [facility] (LASIX) 40 6-17 by mouth Colle ge MG tablet 10:35: daily. of 15 Medicin e Apixaban Yes Take by [facility] (ELIQUIS) 6-17 mouth two Colle ge 2.5 MG TABS 10:35: times of 15 daily. Medicin e amiodarone 0 Yes 200mg Take 200 [facility] (PACERONE) 6-17 mg by [place] 200 MG 10:35: mouth of tablet 15 daily. Medicin e SPIRONOLACT Yes Take by [facility] ONE OR 6-17 mouth. [place] 10:35: of 15 Medicin e Dabigatran Yes Take by [facility] Etexilate 6-17 mouth. [place] Mesylate 10:35: of (PRADAXA) 15 Medicin 150 MG CAPS e glipiZIDE 0 Yes 10mg Take 10 mg [facility] (GLUCOTROL) 6-17 by mouth Stew ege 10 MG 10:35: two times of tablet 15 daily. Medicin e valsartan 0 Yes 320mg Take 320 [facility] (DIOVAN) 6-17 mg by [place] 320 MG 10:35: mouth of tablet 15 daily. Medicin e furosemide 0 Yes 40mg Take 40 mg [facility] (LASIX) 40 6-17 by mouth Colle ge MG tablet 10:35: daily. of 15 Medicin e Apixaban Yes Take by [facility] (ELIQUIS) 6-17 mouth two Colle ge 2.5 MG TABS 10:35: times of 15 daily. Medicin e amiodarone 0 Yes 200mg Take 200 [facility] (PACERONE) 6-17 mg by [facility] 200 MG 10:35: mouth of tablet 15 daily. Medicin e SPIRONOLACT Yes Take by [facility] ONE OR 6-17 mouth. [facility] 10:35: of 15 Medicin e metformin 0 2020- No 850mg Take 850 [facility] (GLUCOPHAGE 6-09 06-09 mg by Abhay cummings ) 850 MG 09:37: 00:00 mouth 2 of tablet 14 :00 times Medicin daily e (with meals). metformin 0 2020- No 500mg Take 500 [facility] (GLUCOPHAGE 6- 06-09 mg by Abhay cummings ) 500 MG 09:37: 00:00 mouth 2 of tablet 11 :00 times Medicin daily e (with meals). amoxicillin 0 Yes 1{tbl} Take 1 [facility] -clavulanat 6-09 Tablet by Col lege e 00:00: mouth two of (AUGMENTIN) 00 times Medicin 500-125 MG daily. e per tablet gabapentin 0 Yes 100mg Take 1 [facility] (NEURONTIN) 6-09 capsule by [facility]lege 100 MG 00:00: mouth 3 of capsule 00 times Medicin daily. e mupirocin Yes Apply to [facility] (BACTROBAN) 6- affected Stew ege 2 % 00:00: area daily of ointment 00 Medicin e gabapentin 0 Yes 100mg Take 1 [facility] (NEURONTIN) 6-09 capsule by Co [facility]lege 100 MG 00:00: mouth 3 of capsule 00 times Medicin daily. e gabapentin 0 Yes 100mg Take 1 [facility] (NEURONTIN) 6-09 capsule by Co [facility]lege 100 MG 00:00: mouth 3 of capsule 00 times Medicin daily. e gabapentin 2020-0 Yes 100mg Take 1 [facility] (NEURONTIN) 6-09 capsule by [facility]lege 100 MG 00:00: mouth 3 of capsule 00 times Medicin daily. e gabapentin 0 Yes 100mg Take 1 [facility] (NEURONTIN) 6-09 capsule by Co [facility]lege 100 MG 00:00: mouth 3 of capsule 00 times Medicin daily. e amoxicillin 0 Yes 1{tbl} Take 1 [facility] -clavulanat 6-09 Tablet by Col lege e 00:00: mouth [...] e gabapentin 2020- No 100mg Take 1 [facility] (NEURONTIN) 07-17- capsule by C ollege 100 MG 00:00: 00:00 mouth 3 of capsule 00 :00 times Medicin daily. e amoxicillin 2020- No 1{tbl} Take 1 [facility] -clavulanat 07-17 Tablet by Co llege e 00:00: 00:00 mouth two of (AUGMENTIN) 00 :00 times Medicin 500-125 MG daily. e per tablet mupirocin 2020- No Apply to [facility] (BACTROBAN) 07-17 affected Col lege 2 % 00:00: 00:00 area daily of ointment 00 :00 Medicin e glipiZIDE Yes 5mg QD Take [address] [facility] (GLUCOTROL) 5-28 by mouth [facility] 10 MG 16:36: daily . Medical tablet 41 [place] amiodarone Yes 200mg QD Take [address] (PACERONE) 5-28 mg [facility] 200 MG 16:36: mouth Medical tablet 41 daily. Center spironolact Yes 25mg Q.5D Take [address] [facility] one 5-28 by mouth 2 [facility] (ALDACTONE) 16:36: (two) Medic al 25 MG 41 times Center tablet daily. docusate Yes 100mg Q.5D Take [address] sodium 5-28 mg by [facility] (COLACE) 16:36: mouth 2 Medica l 100 MG 41 (two) Center capsule times daily. multivitami Yes 1{capsu QD Take [address] n capsule 5-28 le} capsule by Luke s 16:36: mouth Medical 41 daily. Center HYDROcodone Yes 1{tbl} Take [address] -acetaminop 5-28 tablet by [facility] [place] (NORCO 00:00: mouth Medica l 5-325) 00 every 6 Center 5-325 mg (six) per tablet hours as needed for Pain. Max Daily Amount: 4 tablets HYDROcodone 2021- No 1{tbl} Take [address] -acetaminop 5-28 04-28 tablet by Yuliya [place] (NORCO 00:00: 00:00 mouth Medic al 5-325) 00 :00 every 6 Center 5-325 mg (six) per tablet hours as needed for Pain. Max Daily Amount: 4 tablets senna-docus 2020- No 1{tbl} Take [address] ate 5-28 -27 tablet by Yuli (SENOKOT S) 00:00: 23:59 mouth Medi park 8.6-50 mg 00 :00 every Center per tablet night as needed for Constipati on for up to 30 days. senna-docus 2020- No 1{tbl} Take [address] ate 5-28 -27 tablet by Yuli (SENOKOT S) 00:00: 23:59 mouth Medi park 8.6-50 mg 00 :00 every Center per tablet night as needed for Constipati on for up to 30 days. amoxicillin 2020- No 1{tbl} Take [address] -clavulanat 5-28 06-04 tablet by Yuliya cummings 00:00: 23:59 mouth Medical (AUGMENTIN) 00 :00 every 12 Cent er 875-125 mg (twelve) per tablet hours for 7 days. doxycycline 2020- No 100mg Take [address] (MONODOX) 5-05 08-04 capsule Yuli 100 MG 00:00: 23:59 (100 mg Medical capsule 00 :00 total) by Center mouth every 12 (twelve) hours for 7 days. amoxicillin 2020-2020- No 1{tbl} Take [address] -clavulanat 5-28 06-04 tablet by Yuliya cummings 00:00: 23:59 mouth Medical (AUGMENTIN) 00 :00 every 12 Cent er 875-125 mg (twelve) per tablet hours for 7 days. doxycycline 2020- No 100mg Take [address] (MONODOX) 07-05-04 capsule [facility] 100 MG 00:00: 23:59 (100 mg Medical capsule 00 :00 total) by Center mouth every 12 (twelve) hours for 7 days. vancomycin 2020- No 1250mg Inject [facility] (VANCOCIN) 06-18 1,250 mg Luke s injection 00:00: 00:00 intravenou M edical 1000 mg 00 :00 sly . Center vial vancomycin 2020- No 1250mg Inject [facility] (VANCOCIN) 06-18 1,250 mg Luke [facility] injection 00:00: 00:00 intravenou M edical 1000 mg 00 :00 sly . Center vial Eliquis 2.5 Yes 2.5mg Q.5D Take 2.[address] MG tablet 5-09 mg by [facility] 00:00: mouth 2 Medical 00 (two) Center times daily . Eliquis 2.5 2021- No 2.5mg Q.5D Take 2.[address] MG tablet 06-16-28 mg by [facility] 00:00: 00:00 mouth 2 Medical 00 :00 (two) Center times daily . gabapentin Yes 100mg Q.[id number] Take [address] [facility] [address] (NEURONTIN) 5-08 [id number] mg by L ukes 100 MG 00:00: 3D mouth 3 Medical capsule 00 (three) Center times daily . gabapentin Yes 100mg Q.[id number] Take [address] [address] (NEURONTIN) 5-08 [id number] mg by L ukes 100 MG 00:00: 3D mouth 3 Medical capsule 00 (three) Center times daily . HYDROcodone 2020- No 1{tbl} Take [address] -acetaminop 06-15 tablet by Yuliya [place] (NORCO 00:00: 00:00 mouth Medic al 5-325) 00 :00 every 6 Center 5-325 mg (six) per tablet hours as needed . HYDROcodone 2020- No 1{tbl} Take [address] -acetaminop 5-08 05-28 tablet by Yuliya [place] (NORCO 00:00: 00:00 mouth Medic al 5-325) 00 :00 every 6 Center 5-325 mg (six) per tablet hours as needed . potassium No 20meq QD Take [address] [facility] [address] chloride SA 02-0819 tablet (20 L ukes (K-DUR,KLOR 00:00: 00:00 mEq total) Medical -CON) 20 00 :00 by mouth Center MEQ tablet daily. potassium No 20meq QD Take [address] chloride SA 02-08 tablet (20 L ukes (K-DUR,KLOR 00:00: 00:00 mEq total) Medical -CON) 20 00 :00 by mouth Center MEQ tablet daily. glipiZIDE No 10mg Take 1 [facility] (GLUCOTROL) 02-0818 tablet (10 L ukes 10 MG 00:00: 00:00 mg total) Medica l tablet 00 :00 by mouth 2 Center (two) times daily before meals. glipiZIDE No 10mg Take [facility] (GLUCOTROL) 02-0818 tablet (10 L ukes 10 MG 00:00: 00:00 mg total) Medica [...] 09-12 units) l 19:37: WASTE: F/P Tino - Black; E - [facility] Trash [facility] Stable for 28 days at room temperatur e Expires in days from ____Date Acetaminoph Yes 1 tab, PO, Memoria en 300 MG / 09-12 Q4H, PRN l Codeine 18:19: Pain Score Herm leonard Phosphate 00 4-6, 0 30 MG Oral Refill(s) Tablet Dextrose No 25 gm, 50 Niko og 50% Syringe 8-05 mL, Route: l 16:50: IVP, Drug Form: INJ, Dosing Weight 116.364, kg, PRN, PRN Blood Glucose Results, Start date: 09/12/16 11:50:00 CDT, Duration: 30 day, Stop date: 10/12/16 11:49:00 CDT Glucagon No 1 mg, Memoria 09-12 Route: IM, l 16:50: Drug form: [place] PDR/INJ, PRN, Dosing Weight 116.364, kg, PRN [...] Oxide 09-12 (Same as: l 03:33: Mag-Ox [place] 00 400) Magnesium oxide 312ad=633k g elemental magnesium Dose=____m g magnesium oxide [...] 8-05 (Same as: l odium 03:33: Phos-NaK) [place] phosphate 00 Each 1.5 250 mg-280 gm [...] WASTE: F/P l 03:22: - Sink; E [place] 00 - [facility] Magnesium No Notes: Memori a Sulfate 8 WASTE: F/P l 03:21: - Sink; E [place] - [facility] Trash [facility] Potassium No Notes: Memori a Chloride -05 (Same as: l 03:21: K-Dur 20) "Do [...] 150 mg = 1 M emoria etexilate 09-11 cap, PO, l 150 MG Oral 16:33: Q12H, # Her lea Capsule 00 180 cap, 3 [Pradaxa] Refill(s) Metformin Yes 850 mg, Memor ia 09-11 PO, QAM, 0 l 16:33: Refill(s) [place] valsartan Yes 320 mg = 1 Me moria 320 mg oral 09-11 tab, PO, l tablet 16:33: Daily, # [place] 00 90 tab, 0 Refill(s) Glipizide Yes [...] 11:03:00 CDT Phenylephri No 1 drp, Niko og ne 03-06 Route: l Hydrochlori 17:05: Operative H ermann de 25 MG/ML 00 Eye, Ophthalmic Q5Min, Solution Drug form: [Mydfrin] SOLN, Start date: 03/06/14 11:05:00, Duration: 3 doses or times, Stop date: 03/06/14 11:15:00 Cyclopentol No Notes: Niko og ate 03-06 (Same As: l hydrochlori 17:05: Cyclogyl) H ermann de 10 MG/ML Ophthalmic Solution [Cyclogyl] Tropicamide No Notes: Niko og 10 MG/ML 03-06 (Same As: l Ophthalmic 17:05: Mydriacyl, H ermann Solution 00 Opticyl, [Mydriacyl] Tropicacyl ) canaglifloz Yes 100 mg = 1 Memoria in 100 MG 03-05 tab, PO, l Oral Tablet 17:21: Daily, 0 He rmann [Invokana] 00 Refill(s) lisinopril Yes 20 mg = 1 Me moria 20 mg oral -26 tab, PO, l tablet 17:21: Daily, 0 [place] 00 Refill(s) glyBURIDE 5 Yes 10 mg [...] Time Observation Value Comments Source Systolic blood 2021-06-12 18:14:00 105 mm[Hg] [facility] Medicine Diastolic blood 2021-06-12 18:14:00 67 mm[Hg] [facility] Medicine Body height 2021-06-12 18:14:[address] [facility] Body weight 2021-06-12 18:14:[address] [facility] ollege of Medicine BMI 2021-06-12 18:14:00 34.45 kg/m2 [facility] ollege of Medicine WEIGHT 2021-05-31 14:32:00 99.2 kg WEIGHT 2021-05-31 14:32:00 99.2 kg Systolic blood 2020-11-27 18:29:00 146 mm[Hg] [facility] Medicine Diastolic blood 2020-11-27 18:29:00 79 mm[Hg] [facility] Medicine Heart rate 2020-11-27 18:29:00 57 /min [facility] Body height 2020-11-27 18:29:[address] [facility] Body weight 2020-11-27 18:29:[address] [facility] BMI 2020-11-27 18:29:00 34.45 kg/m2 [facility] ollege of Medicine HEIGHT 2020-11-11 07:48:00 182.9 cm WEIGHT 2020-11-11 07:48:00 114.306 kg HEIGHT 2020-11-11 07:48:00 182.9 cm WEIGHT 2020-11-11 07:48:00 114.306 kg HEIGHT 2020-11-07 10:38:00 182.9 cm WEIGHT 2020-11-07 10:38:00 115.667 kg HEIGHT 2020-11-07 10:38:00 182.9 cm WEIGHT 2020-11-07 10:38:00 115.667 kg Systolic blood 2020-10-30 14:03:00 157 mm[Hg] [facility] pressure Medicine Diastolic blood 2020-10-30 14:03:00 85 mm[Hg] [facility] Medicine Heart rate 2020-10-30 14:03:00 73 /min [facility] ollege of Medicine Body height 2020-10-30 14:03:00 182.9 cm [facility] ol[facility] of Medicine Body weight 2020-10-30 14:03:00 115.214 kg [facility] ol[facility] of Medicine BMI 2020-10-30 14:03:00 34.45 kg/m2 [facility] ol[facility] of Medicine Systolic blood 2020-10-16 16:59:00 115 mm[Hg] [facility] pressure Medicine Diastolic blood 2020-10-16 16:59:00 63 mm[Hg] [facility] Medicine Heart rate 2020-10-16 16:59:00 63 /min [facility] ollege of Medicine Body height 2020-10-16 16:59:00 182.9 cm [facility] ollege of Medicine Body weight 2020-10-16 16:59:00 108.863 kg [facility] ollege of Medicine BMI 2020-10-16 16:59:00 32.55 kg/m2 [facility] ollege of Medicine Systolic blood 2020-10-03 18:35:00 118 mm[Hg] [facility] Medicine Diastolic blood 2020-10-03 18:35:00 67 mm[Hg] [facility] Medicine Heart rate 2020-10-03 18:35:00 70 /min [facility] ollege of Medicine Body height 2020-10-03 18:35:00 182.9 cm [facility] ollege of Medicine Body weight 2020-10-03 18:35:00 108.863 kg [facility] ollege of Medicine BMI 2020-10-03 18:35:00 32.55 kg/m2 [facility] ollege of Medicine Body height 2020-09-04 15:40:00 182.9 cm [facility] ollege of Medicine Body weight 2020-09-04 15:40:00 108.863 kg [facility] ollege of Medicine BMI 2020-09-04 15:40:00 32.55 kg/m2 [facility] ollege of Medicine Systolic blood 2020-08-21 15:25:00 137 mm[Hg] [facility] pressure Medicine Diastolic blood 2020-08-21 15:25:00 69 mm[Hg] [facility] Medicine Heart rate 2020-08-21 15:25:00 75 /min [facility] ollege of Medicine Body height 2020-08-21 15:25:00 182.9 cm [facility] ol[facility] of Medicine Body weight 2020-08-21 15:25:00 108.863 kg [facility] ol[facility] of Medicine BMI 2020-08-21 15:25:00 32.55 kg/m2 [facility] ollege of Medicine Systolic blood 2020-08-21 15:25:00 137 mm[Hg] [facility] pressure Medicine Diastolic blood 2020-08-21 15:25:00 69 mm[Hg] [facility] Medicine Heart rate 2020-08-21 15:25:00 75 /min [facility] ollege of Medicine Body height 2020-08-21 15:25:00 182.9 cm [facility] ollege of Medicine Body weight 2020-08-21 15:25:00 108.863 kg [facility] ollege of Medicine [facility] 2020-08-21 15:25:00 32.55 kg/m2 [facility] ollege of Medicine Systolic blood 2020-07-25 15:35:00 121 mm[Hg] [facility] pressure Medicine Diastolic blood 2020-07-25 15:35:00 74 mm[Hg] [facility] Medicine Heart rate 2020-07-25 15:35:00 81 /min [facility] ol[facility] of Medicine Body height 2020-07-25 15:35:00 182.9 cm [facility] ol[facility] of Medicine Body weight 2020-07-25 15:35:00 108.863 kg [facility] ol[facility] of Medicine BMI 2020-07-25 15:35:00 32.55 kg/m2 [facility] ollege of Medicine Systolic blood 2020-07-25 15:35:00 121 mm[Hg] [facility] of pressure Medicine Diastolic blood 2020-07-25 15:35:00 74 mm[Hg] [facility] pressure Medicine Heart rate 2020-07-25 15:35:00 81 /min [facility] ollege of Medicine Body height 2020-07-25 15:35:00 182.9 cm [facility] ol[facility] of Medicine Body weight 2020-07-25 15:35:00 108.863 kg [facility] ollege of Medicine BMI 2020-07-25 15:35:00 32.55 kg/m2 [facility] ollege of Medicine Systolic blood 2020-07-17 14:34:00 121 mm[Hg] [facility] of pressure Medicine Diastolic blood 2020-07-17 14:34:00 63 mm[Hg] [facility] of pressure Medicine Heart rate 2020-07-17 14:34:00 70 /min [facility] ollege of Medicine Body height 2020-07-17 14:34:00 182.9 cm [facility] ol[facility] of Medicine Body weight 2020-07-17 14:34:00 108.863 kg [facility] ol[facility] of Medicine BMI 2020-07-17 14:34:00 32.55 kg/m2 [facility] ollege of Medicine Systolic blood 2020-07-17 14:34:00 121 mm[Hg] [facility] Medicine Diastolic blood 2020-07-17 14:34:00 63 mm[Hg] [facility] Medicine Heart rate 2020-07-17 14:34:00 70 /min [facility] ollege of Medicine Body height 2020-07-17 14:34:00 182.9 cm [facility] ollege of Medicine Body weight 2020-07-17 14:34:00 108.863 kg [facility] ol[facility] of Medicine BMI 2020-07-17 14:34:00 32.55 kg/m2 [facility] ollege of Medicine HEIGHT 2020-06-26 09:00:00 182.9 cm WEIGHT 2020-06-26 09:00:00 110.088 kg HEIGHT 2020-06-25 19:57:00 188 cm WEIGHT 2020-06-25 19:57:00 99.791 kg HEIGHT 2020-06-26 09:00:00 182.9 cm WEIGHT 2020-06-26 09:00:00 110.088 kg HEIGHT 2020-06-25 19:57:00 188 cm WEIGHT 2020-06-25 19:57:00 99.791 kg Systolic blood 2021-06-05 15:41:00 124 mm[Hg] [facility] Diastolic blood 2021-06-05 15:41:00 57 mm[Hg] [facility] Heart rate 2021-06-05 15:41:00 68 /min [facility] Body temperature 2021-06-05 15:41:00 35.61 Madeline [facility] Respiratory rate 2021-06-05 15:41:00 18 /min [facility] Oxygen saturation in 2021-06-05 15:41:00 97 /min [facility] Arterial blood by Medical Ce nter Pulse oximetry Body weight 2021-05-31 14:32:00 99.2 kg [facility] BMI 2021-05-31 14:32:00 29.66 kg/m2 [facility] Body height 2020-11-11 07:48:00 182.9 cm [facility] Systolic blood 2020-07-05 10:59:00 113 mm[Hg] [facility] Diastolic blood 2020-07-05 10:59:00 51 mm[Hg] [facility] Heart rate 2020-07-05 10:59:00 80 /min [facility] Body temperature 2020-07-05 10:59:00 36.17 Madeline [facility] Respiratory rate 2020-07-05 10:59:00 17 /min [facility] Oxygen saturation in 2020-07-05 10:59:00 97 /min [facility] Arterial blood by Medical Ce nter Pulse oximetry Body height 2020-06-26 09:00:00 182.9 cm [facility] Body weight 2020-06-26 09:00:00 110.088 kg [facility] BMI 2020-06-26 09:00:00 32.92 kg/m2 [facility] Temperature Oral (F) 2016-09-12 20:06:00 97.9 F [facility] [place] Respitory Rate 2016-09-12 19:00:00 Memori al [place] Systolic (mm Hg) 2016-09-12 19:00:00 Niko rial [place] Diastolic (mm Hg) 2016-09-12 19:00:00 Mem orial [place] Respitory Rate 2016-09-12 18:00:00 Memori [facility] [place] Systolic (mm Hg) 2016-09-12 18:00:00 Niko rial [place] Diastolic (mm Hg) 2016-09-12 18:00:00 Mem orial [place] Respitory Rate 2016-09-12 17:00:00 Memori [facility] [place] Systolic (mm Hg) 2016-09-12 17:00:00 Niko rial [place] Diastolic (mm Hg) 2016-09-12 17:00:00 Mem orial [place] Temperature Oral (F) 2016-09-12 12:51:00 97.9 F [facility] [place] Temperature Oral (F) 2016-09-12 10:38:00 97.6 F [facility] BMI Calculated 2016-09-11 16:02:00 [facility] Weight 2016-09-11 16:02:00 [facility] [place] Height 2016-09-11 16:02:00 182.88 cm [facility] Systolic (mm Hg) 2014-03-06 20:30:00 Niko rial [place] Diastolic (mm Hg) 2014-03-06 20:30:00 Mem orial [place] Respitory Rate 2014-03-06 20:30:00 Memori [facility] [place] Diastolic (mm Hg) 2014-03-06 20:15:00 Mem orial [place] Systolic (mm Hg) 2014-03-06 20:15:00 Niko rial [place] Respitory Rate 2014-03-06 20:15:00 Memori al [place] Diastolic (mm Hg) 2014-03-06 20:02:00 Mem orial [place] Systolic (mm Hg) 2014-03-06 20:02:00 Niko rial [place] Respitory Rate 2014-03-06 20:02:00 [facility] Heart Rate 2014-03-06 17:15:00 [facility] Heart Rate 2014-03-05 17:17:00 [facility] BMI Calculated 2014-03-05 16:24:00 John Ramann Weight 2014-03-05 16:24:00 [facility] Height 2014-03-05 16:24:00 180.34 cm [facility] Procedures Procedure Date / Time Performed Performing Clinician Sourc e CBC W/PLT COUNT & AUTO 2021-06-05 09:38:[address] [facility] BASIC METABOLIC PANEL 2021-06-05 09:38:00 Jacqueline Schneider [facility] ([facility] CBC W/PLT COUNT & AUTO 2021-06-05 09:38:[address] [facility] (CELLAVISION MANUAL 2021-06-05 09:38:[address] [facility] DIFF) [facility] POCT-GLUCOSE METER 2021-06-05 07:45:00 Jacqueline Schneider [facility] POCT-GLUCOSE METER 2021-06-04 22:32:00 [facility] POCT-GLUCOSE METER 2021-06-04 16:52:00 Jacqueline Schneider [facility] XR FOOT 3 VIEWS LEFT 2021-06-04 13:52:00 Stanford Marcum [facility] POCT-GLUCOSE METER 2021-06-04 13:36:00 Jacqueline Schneider [facility] AMPUTATION,TOE 2021-06-04 12:12:00 Aleksandr Duong [facility] POCT-GLUCOSE METER 2021-06-04 08:19:00 [facility] APTT 2021-06-04 04:56:00 Stanford Marcum [facility] POCT-GLUCOSE METER 2021-06-03 22:20:00 Wyatt [facility] POCT-GLUCOSE METER 2021-06-03 12:50:00 Wyatt, [facility] POCT-GLUCOSE METER 2021-06-03 10:13:[facility] & LOWER EXT 2021-06-03 07:19:00 EduinCainmarilou [facility] ANGIO/ [facility] APTT 2021-06-03 05:05:00 Stanford Marcum Tim [facility] APTT 2021-06-02 22:10:00 Stanford Marcum [facility] POCT-GLUCOSE METER 2021-06-02 21:04:00 Wyatt [facility] POCT-GLUCOSE METER 2021-06-02 17:37:00 Wyatt [facility] APTT 2021-06-02 14:48:00 Stanford Marcum [facility] POCT-GLUCOSE METER 2021-06-02 12:43:00 Wyatt [facility] ABORH, MANUAL 2021-06-02 11:09:00 Winifred Ellington [facility] POCT-GLUCOSE METER 2021-06-02 08:14:00 [facility] TYPE AND SCREEN, 2021-06-02 07:56:00 Carlos Davis [facility] APTT 2021-06-02 07:50:00 Stanford Marcum Tim [facility] APTT 2021-06-02 00:25:00 Stanford Marcum Tim [facility] POCT-GLUCOSE METER 2021-06-01 22:24:00 Wyatt [facility] HC ARTERIAL(SRIRAM W 2021-06-01 21:10:00 Carlos Davis [facility] es DOPPLER)[facility] APTT 2021-06-01 18:01:00 Stanford Marcum [facility] POCT-GLUCOSE METER 2021-06-01 16:57:00 Wyatt, [facility] XR FOOT 3 VIEWS LEFT 2021-06-01 13:27:00 Chago Peterson [facility] POCT-GLUCOSE METER 2021-06-01 12:09:00 Wyatt [facility] APTT 2021-06-01 11:36:00 Stanford Marcum Tim [facility] HC ARTERIAL DOPPLER LEGS 2021-06-01 11:05:00 Carlos Davis [facility] POCT-GLUCOSE METER 2021-06-01 07:57:00 Wyatt [facility] CBC W/PLT COUNT & AUTO 2021-06-01 05:13:00 Adriana Tirado [facility] BASIC METABOLIC PANEL 2021-06-01 05:13:00 Adriana Tirado [address] HEPATIC FUNCTION PANEL 2021-06-01 05:13:00 Adriana Tirado [facility] C-REACTIVE PROTEIN 2021-06-01 05:13:00 Adriana Tirado [facility] VITAMIN B12 AND FOLATE 2021-06-01 05:13:00 Adriana Tirado [facility] APTT 2021-06-01 05:13:00 Stanford Marcum [facility] CBC W/PLT COUNT & AUTO 2021-06-01 05:13:00 Adriana Tirado [facility] (CELLAVISION MANUAL 2021-06-01 05:13:00 Adriana Tirado [facility] APTT 2021-05-31 23:12:00 [facility] PO[facility]SE [facility]ER 2021-05-31 22:24:00 Adriana Tirado [facility] APTT 2021-05-31 22:18:00 Adriana Tirado [facility] POCT-GLUCOSE METER 2021-05-31 17:11:00 Marie TiradoVenturaLindy [facility] SARS-COV2/RT-PCR ([facility] & 2021-05-31 15:04:00 Stanford Marcum [facility] REF LABS) [facility] APTT 2021-05-31 14:51:00 Marie TiradoVenturaLindy [facility] CBC (HEMOGRAM ONLY) 2021-05-31 14:45:00 Marie TiradoVenturaLindy [facility] BASIC METABOLIC PANEL 2021-05-31 14:45:00 Adriana Tirado [address] POCT-GLUCOSE METER 2020-11-11 15:50:00 Eduin [facility] POCT-GLUCOSE METER 2020-11-11 15:18:00 Eduin [facility] PERIPHERAL ANGIOS / 2020-11-11 12:39:00 [facility] 2020-11-11 09:09:00 [facility] BASIC METABOLIC PANEL 2020-11-11 09:09:00 [facility] [address] PROTHROMBIN TIME/INR 2020-11-11 09:09:00 [facility] APTT 2020-11-11 09:09:00 [facility] ECG 12-LEAD 2020-11-11 07:49:58 [facility] ECG 12-LEAD 2020-11-11 07:49:58 Unknown, Hl7 Doctor [facility] CARDIAC CATH REPORT - 2020-11-11 00:00:00 Sven Ambriz [facility] SCAN [facility] BASIC METABOLIC PANEL 2020-11-07 11:33:00 Eduin [place] [id number]) [facility] CBC W/PLT COUNT & AUTO 2020-11-07 11:33:00 Eli Denny [facility] PROTHROMBIN TIME/INR 2020-11-07 11:33:00 Eduin marilou [facility] CBC W/PLT COUNT & AUTO 2020-11-07 11:33:00 Eli Denny [facility] DI[facility]ENTIAL [facility] (CELLAVISION MANUAL 2020-11-07 11:33:[address] [facility] DIFF) [facility] SARS-COV2/RT-PCR ([facility] 2020-11-07 11:10:00 [facility] ECG 12-LEAD 2020-11-07 10:39:57 Unknown, Hl7 [facility] ECG 12-LEAD 2020-11-07 10:39:57 Unknown, Hl7 Doctor [facility] XR FOOT 3 VIEWS RIGHT 2020-10-16 13:50:00 Aleksandr Duong [facility] XR FOOT 3 VIEWS RIGHT 2020-09-04 12:18:00 Aleksandr Duong [facility] POCT-GLUCOSE METER 2020-07-05 [facility]:02[facility] 2020-07-05 07:52:00 [facility] W/PLT COUNT & AUTO 2020-07-05 04:20:00 OMID Portillo t Yuli DIFFERENTIAL [facility] BASIC METABOLIC PANEL 2020-07-05 04:20:00 OMID Portillo [facility] (7) [facility] (CELLAVISION MANUAL 2020-07-05 04:20:[address] [facility] DIFF) [facility] CBC W/PLT COUNT & AUTO 2020-07-05 04:20:00 OMID Portillo S t Yuli DIFFERENTIAL [facility] POCT-GLUCOSE METER 2020-07-04 21:24:00 [facility]SE METER 2020-07-04 17:38:00 [facility] CBC W/PLT COUNT & AUTO 2020-07-04 15:02:00 OMID Portillo [facility] DIFFERENTIAL [facility] BASIC METABOLIC PANEL 2020-07-04 15:02:00 Bandar [facility] (7) [facility] (CELLAVISION MANUAL 2020-07-04 15:02:00 OMID Portillo L ukes DIFF) [facility] CBC W/PLT COUNT & AUTO 2020-07-04 15:02:00 OMID Portillo Juanita Roldan DIFFERENTIAL [facility] APTT 2020-07-04 12:11:00 [place] [facility] POCT-GLUCOSE METER 2020-07-04 12:09:00 [facility] POCT-GLUCOSE METER 2020-07-04 07:25:00 [facility] APTT 2020-07-04 04:37:00 [place] APTT 2020-07-03 23:27:00 [facility] POCT-GLUCOSE METER 2020-07-03 21:06:00 [facility]SE [facility] 2020-07-03 17:12:00 [facility] APTT 2020-07-03 15:25:00 [place] APTT 2020-07-03 14:21:00 [place] POCT-GLUCOSE METER 2020-07-03 12:08:00 [facility] POCT-GLUCOSE METER 2020-07-03 07:56:00 [facility] SARS-COV2/RT-PCR ([facility] & 2020-07-03 04:47:00 [place] REF LABS) [facility] CBC (HEMOGRAM ONLY) 2020-07-03 04:09:00 Christian Sellers [facility] BASIC METABOLIC PANEL 2020-07-03 04:09:00 Christian Sellers [facility] () [facility] APTT 2020-07-03 04:09:00 [facility] POCT-GLUCOSE METER 2020-07-02 17:42:00 Christian Sellers [facility] CBC (HEMOGRAM ONLY) 2020-07-02 17:31:00 [facility] VANCOMYCIN LEVEL, RANDOM 2020-07-02 15:53:00 [facility] POCT-GLUCOSE METER 2020-07-02 14:29:00 [facility] Lyudmila [facility] TISSUE EXAM 2020-07-02 13:10:00 Rhoda Aleksandrjefe Cross [facility] AMPUTATION,TOE 2020-07-02 12:39:00 Aleksandr Duong [facility] POCT-GLUCOSE METER 2020-07-02 11:35:00 Christian Sellers [facility] ECG 12-LEAD 2020-07-02 11:28:39 Cong Leon [facility] ECG 12-LEAD 2020-07-02 11:28:39 Unknown, Hl7 [facility] POCT-GLUCOSE METER 2020-07-02 07:52:00 Christian Sellers [facility] SARS-COV2/RT-PCR ([facility] & 2020-07-02 04:34:00 Christian Sellers [facility] REF LABS) [facility] APTT 2020-07-02 04:32:00 [facility] CBC W/PLT COUNT & AUTO 2020-07-02 02:44:[address] [facility] BASIC METABOLIC PANEL 2020-07-02 02:44:00 Christian Sellers [facility] (7) [facility] APTT 2020-07-02 02:44:00 [facility] (CELLAVISION MANUAL 2020-07-02 02:44:00 Christian Sellers [facility] DIFF) [facility] CBC W/PLT COUNT & AUTO 2020-07-02 02:44:[address] [facility] POCT-GLUCOSE METER 2020-07-01 23:07:00 Christian Sellers [facility] APTT 2020-07-01 17:35:00 [facility] POCT-GLUCOSE METER 2020-07-01 16:50:00 Christian Sellers [facility] APTT 2020-07-01 13:45:00 [facility] POCT-GLUCOSE METER 2020-07-01 11:56:00 Christian Sellers [facility] POCT-GLUCOSE METER 2020-07-01 07:22:00 Christian Sellers [facility] APTT 2020-07-01 05:24:00 [facility] CBC W/PLT COUNT & AUTO 2020-07-01 05:24:[address] [facility] BASIC METABOLIC PANEL 2020-07-01 05:24:00 Christian Sellers [facility] (7) [facility] VANCOMYCIN LEVEL, RANDOM 2020-07-01 05:24:00 Mino Hui [facility] HEPATIC FUNCTION PANEL 2020-07-01 05:24:00 Too Pino C [facility] (CELLAVISION MANUAL 2020-07-01 05:24:00 Christian Sellers [facility] W/PLT COUNT & AUTO 2020-07-01 05:24:[address] [facility] POCT-GLUCOSE METER 2020-07-01 00:14:00 Christian Sellers [facility] APTT 2020-06-30 23:39:00 [facility] APTT 2020-06-30 16:01:00 [facility] APTT 2020-06-30 14:06:00 [facility] APTT 2020-06-30 13:27:00 [facility] POCT-GLUCOSE METER 2020-06-30 12:00:00 Christian Sellers [facility] POCT-GLUCOSE METER 2020-06-30 08:07:00 Christian Sellers [facility] APTT 2020-06-30 07:29:00 [facility] VANCOMYCIN LEVEL, RANDOM 2020-06-30 05:20:00 Mino Hui [facility] CBC W/PLT COUNT & AUTO 2020-06-30 05:20:[address] [facility] BASIC METABOLIC PANEL 2020-06-30 05:20:00 Christian Sellers [facility] ([facility] (CELLAVISION MANUAL 2020-06-30 05:20:00 Christian Sellers [facility] CBC W/PLT COUNT & AUTO 2020-06-30 05:20:[address] [facility] APTT 2020-06-30 00:01:00 [facility] APTT 2020-06-29 21:53:00 [facility] POCT-GLUCOSE METER 2020-06-29 20:55:00 Fernando Sellerslatham Lyudmila [facility] POCT-GLUCOSE METER 2020-06-29 17:07:00 Fernando Sellerslatham Lyudmila [facility] CBC (HEMOGRAM ONLY) 2020-06-29 13:52:00 [facility] APTT 2020-06-29 13:52:00 [facility] POCT-GLUCOSE METER 2020-06-29 12:02:00 Christian Sellers [facility] POCT-GLUCOSE METER 2020-06-29 07:56:00 Christian Sellers [facility] CBC W/PLT COUNT & AUTO 2020-06-29 06:48:[address] [facility] BASIC METABOLIC PANEL 2020-06-29 06:48:00 Barbara Colón [facility] (7) [facility] APTT 2020-06-29 06:48:00 [facility] 2020-06-29 06:48:[address] [facility] (CELLAVISION MANUAL 2020-06-29 06:48:00 Barbara Colón [facility] CBC W/PLT COUNT & AUTO 2020-06-29 06:48:[address] [facility] APTT 2020-06-29 00:13:00 [facility] APTT 2020-06-28 21:37:00 [facility] POCT-GLUCOSE METER 2020-06-28 21:24:00 Christian Sellers [facility] VANCOMYCIN LEVEL, TROUGH 2020-06-28 20:04:00 Barbara Colón [facility] POCT-GLUCOSE METER 2020-06-28 17:31:00 Christian Sellers [facility] VENOGRAM 2020-06-28 14:56:00 Eli Denny [facility] APTT 2020-06-28 13:36:00 [facility] POCT-GLUCOSE METER 2020-06-28 11:40:00 Christian Sellers [facility] POCT-GLUCOSE METER 2020-06-28 07:39:00 Christian Sellers [facility] CBC W/PLT COUNT & AUTO 2020-06-28 04:37:[address] [facility] BASIC METABOLIC PANEL 2020-06-28 04:37:00 MarloChristian Lyudmila [facility] (7) [facility] APTT 2020-06-28 04:37:00 [facility] (CELLAVISION MANUAL 2020-06-28 04:37:[address]as [facility] DIFF) [facility] [place] CBC W/PLT COUNT & AUTO 2020-06-28 04:37:[address] [facility] POCT-GLUCOSE METER 2020-06-27 23:12:00 Marlo Christian Lyudmila [facility] APTT 2020-06-27 21:25:00 [facility] APTT 2020-06-27 18:32:00 [facility] POCT-GLUCOSE METER 2020-06-27 18:07:00 Marlo Fernandolatham Lyudmila [facility] POCT-GLUCOSE METER 2020-06-27 11:55:00 Marlo Christian Lyudmila [facility] APTT 2020-06-27 11:47:00 [facility] POCT-GLUCOSE METER 2020-06-27 07:18:00 Marlo Fernandojocelynn Coreas [facility] CBC W/PLT COUNT & AUTO 2020-06-27 05:36:[address] [facility] BASIC METABOLIC PANEL 2020-06-27 05:36:00 Marlo Fernandojocelynn Coreas [facility] (7) [facility] APTT 2020-06-27 05:36:00 [facility] (CELLAVISION MANUAL 2020-06-27 05:36:00 Marlo Fernandojocelynn Coreas [facility] DIFF) [facility] CBC W/PLT COUNT & AUTO 2020-06-27 05:36:[address] [facility] HC ARTERIAL DOPPLER LEGS 2020-06-27 00:18:00 Nemo Perez [facility] APTT 2020-06-26 22:43:00 [facility] POCT-GLUCOSE METER 2020-06-26 17:33:00 [facility] CBC (HEMOGRAM ONLY) 2020-06-26 15:21:00 [place] [facility] APTT 2020-06-26 15:21:00 [facility] POCT-GLUCOSE METER 2020-06-26 12:23:00 [facility] BASIC METABOLIC PANEL 2020-06-26 03:35:00 [facility] (7) [facility] HEMOGLOBIN A1C 2020-06-26 03:35:00 [facility] CBC W/PLT COUNT & AUTO 2020-06-26 03:35:00 [facility] C-REACTIVE PROTEIN 2020-06-26 03:35:00 [facility] VITAMIN B12 AND FOLATE 2020-06-26 03:35:00 [facility] (CELLAVISION MANUAL 2020-06-26 03:35:00 [facility] DIFF) [facility] CBC W/PLT COUNT & AUTO 2020-06-26 03:35:00 [facility] XR FOOT 3 VIEWS RIGHT 2020-06-25 23:30:00 [facility] VENOUS DOPPLER LEG, 2020-06-25 22:58:00 [facility] SARS-COV2/RT-PCR ([facility] & 2020-06-25 21:40:00 [facility] REF LABS) [facility] BLOOD CULTURE 2020-06-25 21:40:00 [facility] [address] [facility] BLOOD CULTURE 2020-06-25 18:39:00 [facility] [address] [facility] BLOOD CULTURE 2020-06-25 18:36:00 [facility] [address] [facility] CBC W/PLT COUNT & AUTO 2020-06-25 18:36:00 Suri Chahal [facility] DIFFERENTIAL [facility] BASIC METABOLIC PANEL 2020-06-25 18:36:00 ChahalSuri dunn I [facility] (7) [facility] [place] LACTIC ACID, VENOUS 2020-06-25 18:36:00 Chahal [facility] PT/APTT 2020-06-25 18:36:00 [facility] [address] [facility] C-REACTIVE PROTEIN 2020-06-25 18:36:00 [facility] [address] [facility] (CELLAVISION MANUAL 2020-06-25 18:36:00 [facility] [address] [facility] DIFF) [facility] CBC W/PLT COUNT & AUTO 2020-06-25 18:36:00 ChahalSuri [facility] DIFFERENTIAL [facility] Center CARDIAC CATH REPORT - 2020-06-25 00:00:00 Provider, [facility] SCAN Scanning [facility] Arthroplasty of [facility] knee<sup>1</sup> Procedure<sup>2</sup> [facility] Plan of Care Planned Activity Planned Date Details Comments Source Future Scheduled 2021-10-09 INFLUENZA VACCINE [facility] Test 00:00:00 (Season Ended) [code Medical Center = INFLUENZA VACCINE (Season Ended)] Future Scheduled 2021-06-19 COVID-19 Vaccine (1) [facility] Test 13:37:29 [code = COVID-19 of Medicine Vaccine (1)] Future Scheduled 2021-06-19 TETANUS SHOT (ADULT) [facility] Test 13:37:29 [code = TETANUS SHOT of Medi cine (ADULT)] Future Scheduled 2021-06-19 Diabetic foot [facility] Test 13:37:29 examination of Medicine (regime/therapy) [code = 629524319] Future Scheduled 2021-06-19 Hepatitis C [facility] Test 13:37:29 screening of Medicine (procedure) [code = 787939027] Future Scheduled 2021-06-19 ZOSTER VACCINE (1 of [facility] Test 13:37:29 2) [code = ZOSTER of Medicin e VACCINE (1 of 2)] Future Scheduled 2021-06-19 Pneumococcal 65+ (1 [employer] Test 13:37:29 of 1 - PPSV23) [code of Medi cine = Pneumococcal 65+ (1 of 1 - PPSV23)] Future Scheduled 2021-06-19 ANNUAL DIABETIC [facility] Test 13:37:29 RETINOPATHY of Medicine SCREENING [code = ANNUAL DIABETIC RETINOPATHY SCREENING] Future Scheduled 2021-06-[address] [facility] PLAN [facility] [employer] Test 13:37:29 [code = BMI FOLLOW of Medici ne UP PLAN] Future Scheduled 2021-06-19 FLU VACCINE > 6 [facility] Test 13:37:29 MONTHS [code = FLU of Medici ne VACCINE > 6 MONTHS] Future Scheduled 2021-06-19 MEDICARE AWV [facility] Test 13:37:29 (Initial) [code = of Medicin e MEDICARE AWV (Initial)] Future Scheduled 2021-06-19 FALL SCREEN [code = [employer] Test 13:37:29 FALL SCREEN] of Medicine Future Scheduled 2021-06-12 US ARTERIAL LEG LEFT 1 Occurrences [employer] Test 13:18:29 [code = 60421] starting of Medicine 06/12/2021 until 06/11/2022 Future Scheduled 2020-12-[address] [facility] Test 00:00:00 [facility] (procedure) [code = 84073732] Future Scheduled 2020-12-[address] [facility] Test 00:00:00 [facility] Center (procedure) [code = 70682535] Future Scheduled 2020-12-02 COVID-19 Vaccine (1) [facility] [employer] Test 12:35:52 [code = COVID-19 of Medicine Vaccine (1)] Future Scheduled 2020-12-02 TETANUS SHOT (ADULT) [facility] Test 12:35:52 [code = TETANUS SHOT of Medi cine (ADULT)] Future Scheduled 2020-12-02 Diabetic foot [facility] Test 12:35:52 examination of Medicine (regime/therapy) [code = 172691633] Future Scheduled 2020-12-02 Hepatitis C [facility] Test 12:35:52 screening of Medicine (procedure) [code = 843431942] Future Scheduled 2020-12-02 ZOSTER VACCINE ([address] [facility] [employer] Test 12:35:52 2) [code = ZOSTER of Medicin e VACCINE (1 of 2)] Future Scheduled 2020-12-02 PNEUMOVAX >=65 [facility] Test 12:35:52 (PPSV23) [code = of Medicine PNEUMOVAX >=65 (PPSV23)] Future Scheduled 2020-12-02 ANNUAL DIABETIC [facility] Test 12:35:52 RETINOPATHY of Medicine SCREENING [code = ANNUAL DIABETIC RETINOPATHY SCREENING] Future Scheduled 2020-12-02 MEDICARE IPPE [facility] Test 12:35:52 (WELCOME TO of Medicine MEDICARE) [code = MEDICARE IPPE (WELCOME TO MEDICARE)] Future Scheduled 2020-12-02 FLU VACCINE > 6 [facility] Test 12:35:52 MONTHS [code = FLU of Medici ne VACCINE > 6 MONTHS] Future Scheduled 2020-12-02 BMI FOLLOW UP PLAN [facility] Test 12:35:52 [code = BMI FOLLOW of Medici ne UP PLAN] Future Scheduled 2020-12-02 FALL SCREEN [code = [facility] Test 12:35:52 FALL SCREEN] of Medicine Future Scheduled 2020-11-27 COMPRESSION STOCKING Ordered: [facility] Test 13:57:18 15-20MM [code = 11/27/2020 of Medicine NOCPT] Future Scheduled 2020-11-27 US ARTERIAL LEGS 1 Occurrences [facility] Test 13:56:56 BILATERAL [code = starting of Medicin e 66129-7] 11/27/2020 until 11/27/2021 Future Scheduled 2020-11-01 COVID-19 Vaccine (1) [facility] Test 07:39:50 [code = COVID-19 of Medicine Vaccine (1)] Future Scheduled 2020-11-01 TETANUS SHOT (ADULT) [facility] Test 07:39:50 [code = TETANUS SHOT of Medi cine (ADULT)] Future Scheduled 2020-11-01 Diabetic foot [facility] Test 07:39:50 examination of Medicine (regime/therapy) [code = 328625981] Future Scheduled 2020-11-01 Hepatitis C [facility] Test 07:39:50 screening of Medicine (procedure) [code = 426056276] Future Scheduled 2020-11-01 ZOSTER VACCINE ([address] [facility] [employer] Test 07:39:50 2) [code = ZOSTER of Medicin e VACCINE (1 of 2)] Future Scheduled 2020-11-01 PNEUMOVAX >=65 [facility] Test 07:39:50 (PPSV23) [code = of Medicine PNEUMOVAX >=65 (PPSV23)] Future Scheduled 2020-11-01 ANNUAL DIABETIC [facility] Test 07:39:50 RETINOPATHY of Medicine SCREENING [code = ANNUAL DIABETIC RETINOPATHY SCREENING] Future Scheduled 2020-11-01 MEDICARE IPPE [facility] Test 07:39:50 (WELCOME TO of Medicine MEDICARE) [code = MEDICARE IPPE (WELCOME TO MEDICARE)] Future Scheduled 2020-11-01 FLU VACCINE > 6 [facility] Test 07:39:50 MONTHS [code = FLU of Medici ne VACCINE > 6 MONTHS] Future Scheduled 2020-11-01 BMI FOLLOW UP PLAN [facility] Test 07:39:50 [code = BMI FOLLOW of Medici ne UP PLAN] Future Scheduled 2020-11-01 FALL SCREEN [code = [facility] Test 07:39:50 FALL SCREEN] of Medicine Future Scheduled 2020-11-01 COVID-19 Vaccine (1) [facility] Test 07:39:50 [code = COVID-19 of Medicine Vaccine (1)] Future Scheduled 2020-11-01 TETANUS SHOT (ADULT) [facility] Test 07:39:50 [code = TETANUS SHOT of Medi cine (ADULT)] Future Scheduled 2020-11-01 Diabetic foot [facility] Test 07:39:50 examination of Medicine (regime/therapy) [code = 309006754] Future Scheduled 2020-11-01 Hepatitis C [facility] Test 07:39:50 screening of Medicine (procedure) [code = 433253490] Future Scheduled 2020-11-01 ZOSTER VACCINE (1 of [facility] Test 07:39:50 2) [code = ZOSTER of Medicin e VACCINE (1 of 2)] Future Scheduled 2020-11-01 PNEUMOVAX >=65 [facility] Test 07:39:50 (PPSV23) [code = of Medicine PNEUMOVAX >=65 (PPSV23)] Future Scheduled 2020-11-01 ANNUAL DIABETIC [facility] Test 07:39:50 RETINOPATHY of Medicine SCREENING [code = ANNUAL DIABETIC RETINOPATHY SCREENING] Future Scheduled 2020-11-01 MEDICARE IPPE [facility] Test 07:39:50 (WELCOME TO of Medicine MEDICARE) [code = MEDICARE IPPE (WELCOME TO MEDICARE)] Future Scheduled 2020-11-01 FLU VACCINE > 6 [facility] Test 07:39:50 MONTHS [code = FLU of Medici ne VACCINE > 6 MONTHS] Future Scheduled 2020-11-01 BMI FOLLOW UP PLAN [employer] Test 07:39:50 [code = BMI FOLLOW of Medici ne UP PLAN] Future Scheduled 2020-11-01 FALL SCREEN [code = [employer] Test 07:39:50 FALL SCREEN] of Medicine Future Scheduled 2020-10-30 COVID-19 Vaccine (1) [facility] [employer] Test 09:03:34 [code = COVID-19 of Medicine Vaccine (1)] Future Scheduled 2020-10-30 TETANUS SHOT (ADULT) [facility] Test 09:03:34 [code = TETANUS SHOT of Medi cine (ADULT)] Future Scheduled 2020-10-30 Diabetic foot [facility] Test 09:03:34 examination of Medicine (regime/therapy) [code = 804520391] Future Scheduled 2020-10-30 Hepatitis C [facility] Test 09:03:34 screening of Medicine (procedure) [code = 843563781] Future Scheduled 2020-10-30 ZOSTER VACCINE (1 of [facility] [employer] [facility] Test 09:03:34 2) [code = ZOSTER of Medicin e VACCINE (1 of 2)] Future Scheduled 2020-10-30 PNEUMOVAX >=65 [facility] Test 09:03:34 (PPSV23) [code = of Medicine PNEUMOVAX >=65 (PPSV23)] Future Scheduled 2020-10-30 ANNUAL DIABETIC [facility] Test 09:03:34 RETINOPATHY of Medicine SCREENING [code = ANNUAL DIABETIC RETINOPATHY SCREENING] Future Scheduled 2020-10-30 MEDICARE IPPE [facility] Test 09:03:34 (WELCOME TO of Medicine MEDICARE) [code = MEDICARE IPPE (WELCOME TO MEDICARE)] Future Scheduled 2020-10-30 FLU VACCINE > 6 [facility] Test 09:03:34 MONTHS [code = FLU of Medici ne VACCINE > 6 MONTHS] Future Scheduled 2020-10-[address] UP PLAN [facility] [employer] Test 09:03:34 [code = BMI FOLLOW of Medici ne UP PLAN] Future Scheduled 2020-10-30 FALL SCREEN [code = [employer] Test 09:03:34 FALL SCREEN] of Medicine Future Scheduled 2020-10-30 COVID-19 Vaccine (1) [facility] [employer] Test 09:03:34 [code = COVID-19 of Medicine Vaccine (1)] Future Scheduled 2020-10-30 TETANUS SHOT (ADULT) [facility] [employer] Test 09:03:34 [code = TETANUS SHOT of Medi cine (ADULT)] Future Scheduled 2020-10-30 Diabetic foot [facility] Test 09:03:34 examination of Medicine (regime/therapy) [code = 259972040] Future Scheduled 2020-10-30 Hepatitis C [facility] Test 09:03:34 screening of Medicine (procedure) [code = 931481110] Future Scheduled 2020-10-30 ZOSTER VACCINE (1 of [facility] [employer] [facility] Test 09:03:34 2) [code = ZOSTER of Medicin e VACCINE (1 of 2)] Future Scheduled 2020-10-30 PNEUMOVAX >=65 [facility] Test 09:03:34 (PPSV23) [code = of Medicine PNEUMOVAX >=65 (PPSV23)] Future Scheduled 2020-10-30 ANNUAL DIABETIC [facility] Test 09:03:34 RETINOPATHY of Medicine SCREENING [code = ANNUAL DIABETIC RETINOPATHY SCREENING] Future Scheduled 2020-10-30 MEDICARE IPPE [facility] Test 09:03:34 (WELCOME TO of Medicine MEDICARE) [code = MEDICARE IPPE (WELCOME TO MEDICARE)] Future Scheduled 2020-10-30 FLU VACCINE > 6 [facility] Test 09:03:34 MONTHS [code = FLU of Medici ne VACCINE > 6 MONTHS] Future Scheduled 2020-10-[address] [facility] [employer] Test 09:03:34 [code = BMI FOLLOW of Medici ne UP PLAN] Future Scheduled 2020-10-30 FALL SCREEN [code = [employer] Test 09:03:34 FALL SCREEN] of Medicine Future Scheduled 2020-10-16 XR FOOT RIGHT 1 Occurrences [facility] Test 12:25:23 (COMPLETE) [code = [place] [address]-2] 10/16/2020 until 10/16/2021 Future Scheduled 2020-10-16 XR FOOT RIGHT 1 Occurrences [facility] [employer] Test 12:25:23 (COMPLETE) [code = [place] [address]-3] 10/16/2020 until 10/16/2021 Future Scheduled 2020-10-16 WOUND CARE Ordered: [facility] Test 12:24:46 INSTRUCTIONS [code = 10/16/[address] [address]] Future Scheduled 2020-10-16 WOUND CARE Ordered: [facility] Test 12:24:46 INSTRUCTIONS [code = 10/16/[address] [address]] Future Scheduled 2020-10-16 WOUND CARE Ordered: [facility] Test 12:20:05 INSTRUCTIONS [code = 10/16/[address] [address]] Future Scheduled 2020-10-16 WOUND CARE Ordered: [facility] Test 12:20:05 INSTRUCTIONS [code = 10/16/[address] [address]] Future Scheduled 2020-10-[address] [facility] Test 00:00:00 (#1) [code = [facility] INFLUENZA VACCINE (#1)] Future Scheduled 2020-10-04 COVID-19 Vaccine (1) [facility] Test 12:36:13 [code = COVID-19 of Medicine Vaccine (1)] Future Scheduled 2020-10-04 TETANUS SHOT (ADULT) [facility] Test 12:36:13 [code = TETANUS SHOT of Drive Power (ADULT)] Future Scheduled 2020-10-04 Diabetic foot [facility] Test 12:36:13 examination of Medicine (regime/therapy) [code = 115692770] Future Scheduled 2020-10-04 Hepatitis C [facility] Test 12:36:13 screening of Medicine (procedure) [code = 976477345] Future Scheduled 2020-10-04 ZOSTER VACCINE (1 of [facility] Test 12:36:13 2) [code = ZOSTER of Medicin e VACCINE (1 of 2)] Future Scheduled 2020-10-04 PNEUMOVAX >=65 [facility] Test 12:36:13 (PPSV23) [code = of Medicine PNEUMOVAX >=65 (PPSV23)] Future Scheduled 2020-10-04 ANNUAL DIABETIC [facility] Test 12:36:13 RETINOPATHY of Medicine SCREENING [code = ANNUAL DIABETIC RETINOPATHY SCREENING] Future Scheduled 2020-10-04 MEDICARE IPPE [facility] Test 12:36:13 (WELCOME TO of Medicine MEDICARE) [code = MEDICARE IPPE (WELCOME TO MEDICARE)] Future Scheduled 2020-10-04 FLU VACCINE > 6 [facility] Test 12:36:13 MONTHS [code = FLU of Medici ne VACCINE > 6 MONTHS] Future Scheduled 2020-10-04 BMI FOLLOW UP PLAN [facility] r [facility] Test 12:36:13 [code = BMI FOLLOW of Medici ne UP PLAN] Future Scheduled 2020-10-04 FALL SCREEN [code = [facility] or College Test 12:36:13 FALL SCREEN] of Medicine Future Scheduled 2020-10-03 US ARTERIAL LEG 1 Occurrences [facility] Test 14:20:41 RIGHT [code = 20704] starting of Drive Power 10/03/2020 until 10/03/2021 Future Scheduled 2020-10-03 WOUND CARE Ordered: [facility] Test 14:18:36 INSTRUCTIONS [code = 10/03/[address] [address]] Future Scheduled 2020-10-03 XR FOOT RIGHT 2 1 Occurrences [facility] [employer] Test 14:02:12 VIEWS STANDING [code starting of Drive Power = 12751] 10/03/2020 until 10/03/2021 Future Scheduled 2020-10-03 XR FOOT RIGHT AP AND 1 Occurrences [facility] Test 14:02:12 LATERAL [code = starting of Medicine 17829-7] 10/03/2020 until 10/03/2021 Future Scheduled 2020-10-01 COVID-19 Vaccine (1) [facility] Test 14:09:03 [code = COVID-19 of Medicine Vaccine (1)] Future Scheduled 2020-10-01 TETANUS SHOT (ADULT) [facility] Test 14:09:03 [code = TETANUS SHOT of Drive Power (ADULT)] Future Scheduled 2020-10-01 Diabetic foot [facility] Test 14:09:03 examination of Medicine (regime/therapy) [code = 795724438] Future Scheduled 2020-10-01 Hepatitis C [facility] Test 14:09:03 screening of Medicine (procedure) [code = 850477716] Future Scheduled 2020-10-01 ZOSTER VACCINE (1 of [facility] Test 14:09:03 2) [code = ZOSTER of Medicin e VACCINE (1 of 2)] Future Scheduled 2020-10-01 PNEUMOVAX >=65 [facility] Test 14:09:03 (PPSV23) [code = of Medicine PNEUMOVAX >=65 (PPSV23)] Future Scheduled 2020-10-01 ANNUAL DIABETIC [facility] Test 14:09:03 RETINOPATHY of Medicine SCREENING [code = ANNUAL DIABETIC RETINOPATHY SCREENING] Future Scheduled 2020-10-01 MEDICARE IPPE [facility] Test 14:09:03 (WELCOME TO of Medicine MEDICARE) [code = MEDICARE IPPE (WELCOME TO MEDICARE)] Future Scheduled 2020-10-01 FLU VACCINE > 6 [facility] Test 14:09:03 MONTHS [code = FLU of Medici ne VACCINE > 6 MONTHS] Future Scheduled 2020-10-01 BMI FOLLOW UP PLAN [facility] Test 14:09:03 [code = BMI FOLLOW of Medici ne UP PLAN] Future Scheduled 2020-10-01 FALL SCREEN [code = [facility] Test 14:09:03 FALL SCREEN] of Medicine Future Scheduled 2020-09-05 COVID-19 Vaccine (1) [facility] Test 11:08:02 [code = COVID-19 of Medicine Vaccine (1)] Future Scheduled 2020-09-05 TETANUS SHOT (ADULT) [facility] Test 11:08:02 [code = TETANUS SHOT of Medi cine (ADULT)] Future Scheduled 2020-09-05 Diabetic foot [facility] Test 11:08:02 examination of Medicine (regime/therapy) [code = 553562225] Future Scheduled 2020-09-05 Hepatitis C [facility] Test 11:08:02 screening of Medicine (procedure) [code = 361393718] Future Scheduled 2020-09-05 ZOSTER VACCINE (1 of [facility] Test 11:08:02 2) [code = ZOSTER of Medicin e VACCINE (1 of 2)] Future Scheduled 2020-09-05 PNEUMOVAX >=65 [facility] Test 11:08:02 (PPSV23) [code = of Medicine PNEUMOVAX >=65 (PPSV23)] Future Scheduled 2020-09-05 ANNUAL DIABETIC [facility] Test 11:08:02 RETINOPATHY of Medicine SCREENING [code = ANNUAL DIABETIC RETINOPATHY SCREENING] Future Scheduled 2020-09-05 MEDICARE IPPE [facility] Test 11:08:02 (WELCOME TO of Medicine MEDICARE) [code = MEDICARE IPPE (WELCOME TO MEDICARE)] Future Scheduled 2020-09-05 FLU VACCINE > 6 [facility] Test 11:08:02 MONTHS [code = FLU of Medici ne VACCINE > 6 MONTHS] Future Scheduled 2020-09-05 BMI FOLLOW UP PLAN [facility] [employer] Test 11:08:02 [code = BMI FOLLOW of Medici ne UP PLAN] Future Scheduled 2020-09-05 FALL SCREEN [code = [facility] or [place] Test 11:08:02 FALL SCREEN] of Medicine Future Scheduled 2020-09-04 XR FOOT RIGHT 1 Occurrences [facility] Test 11:12:34 (COMPLETE) [code = [place] [address]-8] 09/04/2020 until 09/04/2021 Future Scheduled 2020-09-02 COVID-19 Vaccine (1) [facility] Test 21:21:23 [code = COVID-19 of Medicine Vaccine (1)] Future Scheduled 2020-09-02 TETANUS SHOT (ADULT) [facility] Test 21:21:23 [code = TETANUS SHOT of Medi cine (ADULT)] Future Scheduled 2020-09-02 Diabetic foot [facility] Test 21:21:23 examination of Medicine (regime/therapy) [code = 716643530] Future Scheduled 2020-09-02 Hepatitis C [facility] Test 21:21:23 screening of Medicine (procedure) [code = 050779751] Future Scheduled 2020-09-02 ZOSTER VACCINE (1 of [facility] Test 21:21:23 2) [code = ZOSTER of Medicin e VACCINE (1 of 2)] Future Scheduled 2020-09-02 PNEUMOVAX >=65 [facility] Test 21:21:23 (PPSV23) [code = of Medicine PNEUMOVAX >=65 (PPSV23)] Future Scheduled 2020-09-02 ANNUAL DIABETIC [facility] Test 21:21:23 RETINOPATHY of Medicine SCREENING [code = ANNUAL DIABETIC RETINOPATHY SCREENING] Future Scheduled 2020-09-02 MEDICARE IPPE [facility] Test 21:21:23 (WELCOME TO of Medicine MEDICARE) [code = MEDICARE IPPE (WELCOME TO MEDICARE)] Future Scheduled 2020-09-02 FLU VACCINE > 6 [facility] Test 21:21:23 MONTHS [code = FLU of Medici ne VACCINE > 6 MONTHS] Future Scheduled 2020-09-02 BMI FOLLOW UP PLAN [facility] [employer] Test 21:21:23 [code = BMI FOLLOW of Medici ne UP PLAN] Future Scheduled 2020-09-02 FALL SCREEN [code = [employer] [facility] 21:21:23 FALL SCREEN] of Medicine Future Scheduled 2020-08-07 COVID-19 Vaccine (1) [facility] Test 10:20:20 [code = COVID-19 of Medicine Vaccine (1)] Future Scheduled 2020-08-07 TETANUS SHOT (ADULT) [facility] Test 10:20:20 [code = TETANUS SHOT of Medi cine (ADULT)] Future Scheduled 2020-08-07 Diabetic foot [facility] Test 10:20:20 examination of Medicine (regime/therapy) [code = 881170816] Future Scheduled 2020-08-07 Hepatitis C [facility] Test 10:20:20 screening of Medicine (procedure) [code = 626619317] Future Scheduled 2020-08-07 ZOSTER VACCINE (1 of [facility] Test 10:20:20 2) [code = ZOSTER of Medicin e VACCINE (1 of 2)] Future Scheduled 2020-08-07 PNEUMOVAX >=65 [facility] Test 10:20:20 (PPSV23) [code = of Medicine PNEUMOVAX >=65 (PPSV23)] Future Scheduled 2020-08-07 ANNUAL DIABETIC [facility] Test 10:20:20 RETINOPATHY of Medicine SCREENING [code = ANNUAL DIABETIC RETINOPATHY SCREENING] Future Scheduled 2020-08-07 MEDICARE IPPE [facility] Test 10:20:20 (WELCOME TO of Medicine MEDICARE) [code = MEDICARE IPPE (WELCOME TO MEDICARE)] Future Scheduled 2020-08-07 FLU VACCINE > 6 [facility] Test 10:20:20 MONTHS [code = FLU of Medici ne VACCINE > 6 MONTHS] Future Scheduled 2020-08-07 BMI FOLLOW UP PLAN [employer] Test 10:20:20 [code = BMI FOLLOW of Medici ne UP PLAN] Future Scheduled 2020-08-07 FALL SCREEN [code = [employer] Test 10:20:20 FALL SCREEN] of Medicine Future Scheduled 2020-08-07 US ARTERIAL LEG 1 Occurrences [facility] [employer] Test 09:52:01 RIGHT [code = 55220] starting of Medi cine 08/07/2020 until 08/07/2021 Future Scheduled 2020-08-06 COVID-19 Vaccine (1) [facility] [employer] Test 08:20:27 [code = COVID-19 of Medicine Vaccine (1)] Future Scheduled 2020-08-06 TETANUS SHOT (ADULT) [facility] [employer] Test 08:20:27 [code = TETANUS SHOT of Medi cine (ADULT)] Future Scheduled 2020-08-06 Diabetic foot [facility] Test 08:20:27 examination of Medicine (regime/therapy) [code = 597023850] Future Scheduled 2020-08-06 Hepatitis C [facility] Test 08:20:27 screening of Medicine (procedure) [code = 187263357] Future Scheduled 2020-08-06 ZOSTER VACCINE (1 of [facility] Test 08:20:27 2) [code = ZOSTER of Medicin e VACCINE (1 of 2)] Future Scheduled 2020-08-06 FALL SCREEN [code = [employer] Test 08:20:27 FALL SCREEN] of Medicine Future Scheduled 2020-08-06 PNEUMOVAX >=65 [facility] Test 08:20:27 (PPSV23) [code = of Medicine PNEUMOVAX >=65 (PPSV23)] Future Scheduled 2020-08-06 ANNUAL DIABETIC [facility] Test 08:20:27 RETINOPATHY of Medicine SCREENING [code = ANNUAL DIABETIC RETINOPATHY SCREENING] Future Scheduled 2020-08-06 MEDICARE IPPE [facility] Test 08:20:27 (WELCOME TO of Medicine MEDICARE) [code = MEDICARE IPPE (WELCOME TO MEDICARE)] Future Scheduled 2020-08-06 FLU VACCINE > 6 [facility] Test 08:20:27 MONTHS [code = FLU of Medici ne VACCINE > 6 MONTHS] Future Scheduled 2020-08-06 BMI FOLLOW UP PLAN [facility] Test 08:20:27 [code = BMI FOLLOW of Medici ne UP PLAN] Future Scheduled 2020-08-02 BMI FOLLOW UP PLAN [facility] Test 11:29:43 [code = BMI FOLLOW of Medici ne UP PLAN] Future Scheduled 2020-08-02 COVID-19 Vaccine (1) [facility] [employer] Test 08:17:30 [code = COVID-19 of Medicine Vaccine (1)] Future Scheduled 2020-08-02 TETANUS SHOT (ADULT) [facility] [employer] Test 08:17:30 [code = TETANUS SHOT of Medi cine (ADULT)] Future Scheduled 2020-08-02 Diabetic foot [facility] Test 08:17:30 examination of Medicine (regime/therapy) [code = 918510468] Future Scheduled 2020-08-02 Hepatitis C [facility] Test 08:17:30 screening of Medicine (procedure) [code = 013957597] Future Scheduled 2020-08-02 ZOSTER VACCINE (1 of [facility] Test 08:17:30 2) [code = ZOSTER of Medicin e VACCINE (1 of 2)] Future Scheduled 2020-08-02 FALL SCREEN [code = [facility] or [place] Test 08:17:30 FALL SCREEN] of Medicine Future Scheduled 2020-08-02 PNEUMOVAX >=65 [facility] Test 08:17:30 (PPSV23) [code = of Medicine PNEUMOVAX >=65 (PPSV23)] Future Scheduled 2020-08-02 ANNUAL DIABETIC [facility] Test 08:17:30 RETINOPATHY of Medicine SCREENING [code = ANNUAL DIABETIC RETINOPATHY SCREENING] Future Scheduled 2020-08-02 MEDICARE IPPE [facility] Test 08:17:30 (WELCOME TO of Medicine MEDICARE) [code = MEDICARE IPPE (WELCOME TO MEDICARE)] Future Scheduled 2020-08-02 FLU VACCINE > 6 [facility] Test 08:17:30 MONTHS [code = FLU of Medici ne VACCINE > 6 MONTHS] Future Scheduled 2020-02-[address] [facility] Test 00:00:00 (12+) [code = Medical Center DEPRESSION SCREENING (12+)] Future Scheduled 2020-02-09 FALLS RISK SCREENING [facility] Test 00:00:00 [code = FALLS RISK Medical C enter SCREENING] Future Scheduled 2018-01-30 Urine screening for [facility] Test 00:00:00 protein (procedure) [facility] [code = 067846915] Future Scheduled 2018-01-30 Urine screening for [facility] Test 00:00:00 protein (procedure) [facility] [code = 881368454] Future Scheduled 2017-02-[address] [facility] [facility] Test 00:00:00 WELLNESS (YEAR 2 or Medical Center FIRST YEAR if no IPPE) [code = MEDICARE ANNUAL WELLNESS (YEAR 2 or FIRST YEAR if no IPPE)] Future Scheduled 2017-02-[address] [facility] Test 00:00:00 WELLNESS (YEAR 2 or Medical Center FIRST YEAR if no IPPE) [code = MEDICARE ANNUAL WELLNESS (YEAR 2 or FIRST YEAR if no IPPE)] Future Scheduled 2008-06-12 PNEUMOCOCCAL 65+ YRS [facility] Test 00:00:00 (1 of 1 - Medical Center [id number]) [code = PNEUMOCOCCAL 65+ YRS (1 of 1 - [id number] [id number])] Future Scheduled 2008-06-12 PNEUMOCOCCAL 65+ YRS [facility] Test 00:00:00 (1 of 1 - PPSV23) Medical Ce nter [code = PNEUMOCOCCAL 65+ YRS (1 of 1 - PPSV23)] Future Scheduled 1993-06-12 SHINGLES VACCINES ([address] [facility] Test 00:00:00 of 2) [code = Medical Center SHINGLES VACCINES (1 of 2)] Future Scheduled 1993-06-12 SHINGLES VACCINES ([address] [facility] Test 00:00:00 of 2) [code = [facility] SHINGLES VACCINES (1 of 2)] Future Scheduled 1962-06-12 DTAP/TDAP/TD [facility] Test 00:[facility]:00 VACCINES (1 - Tdap) Medical Center [code = DTAP/TDAP/TD VACCINES (1 - Tdap)] Future Scheduled 1962-06-12 DTAP/TDAP/TD [facility] Test 00:00:00 VACCINES (1 - Tdap) Medical Center [code = DTAP/TDAP/TD VACCINES (1 - Tdap)] Future Scheduled 1961-06-[address] [facility] Test 00:00:00 SCREENING [code = Medical Ce nter HEPATITIS C SCREENING] Future Scheduled 1961-06-[address] [facility] Test 00:00:00 SCREENING [code = Medical Ce nter HEPATITIS C SCREENING] Future Scheduled 1955 COVID-19 VACCINE (1) [facility] Test 00:00:00 [code = COVID-[address] VACCINE (1)] Future Scheduled 1953-06-[address] DIABETIC EYE EXAM [facility] Test 00:00:00 [code = DIABETIC EYE Medical Center EXAM] Future Scheduled 1953-06-[address] [facility] Test 00:[facility]00 examination Medical Center (regime/therapy) [code = 663929715] Future Scheduled 1953-06-[address] DIABETIC EYE EXAM [facility] Test 00:00:00 [code = DIABETIC EYE Medical Center EXAM] Future Scheduled 1953-06-[address] [facility] Test 00:00:00 examination Medical Center (regime/therapy) [code = 921490804] Future Scheduled 1948-06-12 COVID-19 VACCINE (1) [facility] Test 00:00:00 [code = COVID-[address] VACCINE (1)] Encounters Start End Encounter Admission Attending Care Care Encounter Source Date/Time Date/Time Type Type Clinicians Facility Department ID 2021-06-12 2021-06-12 Outpatient [facility] [id number] [facility] 13:49:56 15:09:32 Maryuri 2021-06-12 2021-06-12 Office ROMMEL DUONG [id number] [facility] 12:17:44 13:54:09 Visit ALEKSANDR AMBULATOR 350.1.13.21 College Y 0.2.7.2.686 [id number] [facility] 825 e 2021-05-31 2021-06-05 Inpatient UR WYATT, SLE Surgery [id number] [facility] 11:58:00 17:01:00 MRINALINI 2021-06-04 2021-06-04 Surgery Rhoda [facility] [id number] 12:00:00 14:05:00 Aleksandr Cross [facility] 2021-06-04 2021-06-04 Anesthesia Edward [facility] [id number] 12:27:00 13:30:00 Event [facility] 2021-06-03 2021-06-03 Surgery Eduin [facility] [id number] 07:30:00 10:13:00 [facility] 2020-11-27 2020-11-27 Office ROMMEL Denny [id number] [facility] 13:12:32 14:05:32 Visit Eli AMBULATOR 350.1.13.21 College Y 0.2.7.2.686 [facility] [id number] Medi perla 825 e 2020-11-27 2020-11-27 Outpatient [facility] [id number] [facility] 10:48:51 13:45:39 Colleg e of Medicin e 2020-11-11 2020-11-11 Outpatient [facility] [id number] [facility] 00:00:00 23:59:00 Colleg e of Medicin e 2020-11-11 2020-11-11 Outpatient DIOGENES BOUCHER Surgery [id number] [facility] 07:29:00 17:16:00 [facility] 2020-11-11 2020-11-11 [id number] 07:29:00 17:16:00 Encounter [facility] 2020-11-11 2020-11-11 [facility] [id number] 14:05:00 16:39:00 [facility] 2020-11-07 2020-11-07 Office TRINITY Eli Denny [facility] [id number] 11:45:00 12:00:00 Visit SunnyNia [facility] 2020-11-07 2020-11-07 Outpatient [facility] [id number] [facility] 00:00:00 00:00:00 2020-11-07 2020-11-07 Orders [facility] [id number] 00:00:00 00:00:00 [facility] 2020-10-30 2020-10-30 Office ROMMEL Denny 1.2.840.114 [id number] [facility] 08:31:33 08:46:33 Visit Eli AMBULATOR 350.1.13.21 College Y 0.2.7.2.686 of [id number] [facility] 825 e 2020-10-30 2020-10-30 [facility] [id number] [facility] 08:31:57 08:31:57 ALEKSANDR Reyesg e of Medicin e 2020-10-24 2020-10-25 Outpatient [facility] [id number] [facility] 14:55:13 08:48:45 Ericg e of Medicin e 2020-10-16 2020-10-16 [facility] [id number] 13:03:24 23:59:00 Encounter [facility] 2020-10-16 2020-10-[address] [facility] 1.2.840.114 [id number] [facility] 11:14:16 12:32:32 Visit Aleksandr Cross AMBULATOR 350.1.13.21 College Y 0.2.7.2.686 of [id number] [facility] 825 e 2020-10-16 2020-10-16 Outpatient [facility] SLE [id number] [facility] 00:00:00 00:00:00 ALEKSANDR 2020-10-16 2020-10-16 [facility] [id number] 00:00:00 00:00:[address] [facility] 2020-10-03 2020-10-[address] [facility] 1.2.840.114 [id number] [facility] 12:47:24 14:32:56 Visit Aleksandrjefe Cross AMBULATOR 350.1.13.21 College Y 0.2.7.2.686 of [id number] [facility] 825 e 2020-09-04 2020-09-04 [facility] [id number] 11:50:00 23:59:00 Encounter [facility] 2020-09-04 2020-09-[address] [facility] 1.2.840.114 [id number] [facility] 10:11:54 11:24:16 Visit Aleksandr Cross AMBULATOR 350.1.13.21 College Y 0.2.7.2.686 of [id number] [facility] perla 825 e 2020-09-04 2020-09-04 Outpatient [facility] [id number] SLE 00:00:00 00:00:00 ALEKSANDR 2020-09-04 2020-09-04 Outside Rhoda, [facility] [id number] [facility] 00:00:00 00:00:00 Orders Aleksandr Cross [facility] 2020-08-21 2020-08-21 Office ROMMEL Duong 1.2.840.[id number] [place] [address] 10:04:48 11:02:48 Visit Aleksandr Cross AMBULATOR 350.1.13.21 College Y 0.2.7.2.686 of [id number] [facility] 825 e 2020-08-21 2020-08-21 Office ROMMEL Duong 1.2.840.114 [id number] 10:04:48 11:02:48 Visit Aleksandr Cross AMBULATOR 350.1.13.21 Y 0.2.7.2.686 [id number] [facility] 2020-08-07 2020-08-07 Office ROMMEL Duong 1.2.840.[id number] [place] [address] 09:18:28 10:13:08 Visit Aleksandrjefe Cross AMBULATOR 350.1.13.21 College Y 0.2.7.2.686 of [id number] [facility] 825 e 2020-08-07 2020-08-07 Office ROMMEL Duong 1.2.840.114 [id number] 09:18:28 10:13:08 Visit Aleksandrjefe Cross AMBULATOR 350.1.13.21 Y 0.2.7.2.686 [id number] [facility] 2020-08-07 2020-08-07 Office ROMMEL Denny 1.2.840.[id number] [place] [address] 09:18:00 09:33:00 Visit Eli AMBULATOR 350.1.13.21 College Y 0.2.7.2.686 of [id number] [facility] 825 e 2020-08-07 2020-08-07 Office Eduin ROMMEL 1.2.840.114 [id number] 09:18:00 09:33:00 Visit Jayer AMBULATOR 350.1.13.21 Y 0.2.7.2.686 [id number] 2020-07-25 2020-07-25 Office ROMMEL Kaur [id number] [id number] [facility] 10:24:58 11:19:37 Visit Peg AMBULATOR 350.1.13.21 College Raejoy Y 0.2.7.2.686 of [id number] [facility] 825 e 2020-07-25 2020-07-25 Office ROMMEL Kaur 1.2.246.103 [id number] 10:24:58 11:19:37 Visit Peg AMBULATOR 350.1.13.21 Raejoy Y 0.2.7.2.686 [id number] [facility] 2020-07-17 2020-07-17 Office ROMMEL Duong 1.2.840.114 [id number] [facility] 09:14:49 10:09:41 Visit Aleksandr Esteban AMBULATOR 350.1.13.21 College Y 0.2.7.2.686 of [id number] [facility] 825 e 2020-07-17 2020-07-17 Office ROMMEL Duong 1.2.840.114 [id number] 09:14:49 10:09:41 Visit Aleksandr Cross AMBULATOR 350.1.13.21 Y 0.2.7.2.686 [id number] [facility] 2020-06-25 2020-07-05 [facility] Suri Chahal [facility] [id number] 16:34:00 16:36:00 [facility] 2020-07-02 2020-07-02 Surgery Rhoda, [facility] [id number] [facility] St 12:35:00 14:40:00 Aleksandr Cross [facility] 2020-07-02 2020-07-02 Anesthesia Ijeoma, [facility] [id number] 12:53:00 13:53:00 Event Veeral [facility] 2020-07-02 2020-07-02 Orders [facility] [id number] 00:00:00 00:00:[address] [facility] 2020-06-28 2020-06-28 Surgery Denny, [facility] [id number] 19:05:00 22:10:[address] [facility] 2020-06-26 2020-06-26 Travel [facility] [id number] [facility] 00[facility] 00:[facility]:00 [facility] 2020-06-25 2020-06-25 Emergency ER [facility] Emergency [id number] [facility] 15:48:00 15:48:00 2016-09-11 2016-09-12 Bedded formerly [facility] [id number] 15:41:00 21:00:[address] 2014-03-06 2014-03-06 Day formerly [facility] [id number] 16:57:00 21:00:[address] Results Test Description Test Time Test Comments Results Result [facility] e Comments TISSUE EXAM 2021-06-14 Surgical Pathology 21:10:16 Report Case: [id number] Authorizing Provider: Aleksandr Duong DPM Collected: 06/04/2021 01:00 PM [facility]ing [facility] Received: 06/04/2021 01:45 PM SERVICES Pathologist: Mattie Varma MD Specimens: A) - Soft Tissue, Other, Left 3rd digit proximal phalanx for BIOPSY B) - Soft Tissue, Other, 3rd digit left foot A. BONE, LEFT FOOT, 3RD DIGIT, PROXIMAL PHALANX, BIOPSY:- ACUTE OSTEOMYELITISB. BONE, LEFT FOOT, 3RD DIGIT, PARTIAL AMPUTATION:- ULCERATION WITH GANGRENOUS NECROSIS- SKIN AND SOFT TISSUE MARGIN VIABLE- DISARTICULATED BONE WITH ACUTE OSTEOMYELITIS Signing Pathologist Direct Phone Line: [phone] ically signed by Mattie Varma MD on 06/14/2021 at 9:10 [id number] X 2, [id number] X 2Osteomyelitis ankle and foot Left footA. Soft Tissue, Other.Received in formalin labeled with the patient's name, medical record number and "soft tissue" is a 1.2 x 0.5 x 0.4 cm morales, focally hemorrhagic, shaggy bone fragment with a smooth articular surface. The opposing and of the bone fragment is inked blue. The specimen is bisected to display a yellow-morales, trabeculated cut surface, and the specimen is submitted entirely in cassette A1, following decalcification.SHB. Soft Tissue, Other.Received in formalin labeled with the patient's name, medical record number and "third digit left foot" is a 1.8 x 1.7 x 1.7 cm toe with an intact toenail and a disarticulated segment of bone extending 0.5 cm from the soft tissue margin. The epidermis is morales wrinkled and there is a 1.0 x 0.9 cm green-brown ulcer on the plantar surface located 0.2 cm from the proximal skin margin. The bone underlying the ulcerated lesion is dyer-morales and soft.Section code:B1: Ulcer to proximal margin (blue ink)B2: Uninvolved proximal margin skin, en faceB3: Bone underlying ulcer, following decalcificationB4: disarticulated end, following decalcificationSHPer formed.[facility], Department of Pathology, [address] [place] [address], [facility], [facility] of [facility]ology, [address] [place] [address], [facility]qgdfeMenlo Park [facility], Department of Pathology, [address] [place] [address], RAD, FOOT, MIN 3 2021-06-05 Reason for VIEWS, LEFT 13:10:00 exam:->[facility]STA : 1945 Sex: M *FINAL REPORT TECHNIQUE: Three views of the left foot. INDICATION: Post op. COMPARISON: Radiographs from 06/01/2021. FINDINGS:Interval amputation of the distal digit and a portion of the middle digit of the third toe. Prior amputation of the distal great toe. There is likely old, healed fracture of the mid diaphyseal second metatarsal. Extensive calcification of the arteries of the ankle and foot. There is some lucency of the distal phalanx of the fifth toe without definite erosion. 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 There is some lucency of the distal phalanx of the fifth toe without definite erosion. Signed: Jayesh Lino [facility] Verified Date/Time: 06/05/2021 13:10:20 (CELLAVISION MANUAL DIFF) 2021-06-05 12:27:50 Test Item Value Reference Range Interpretation Comme nts NEUTROPHILS - REL (CELLAVISION)(BEAKER) (test code = 2816) 67 % LYMPHOCYTES - REL (CELLAVISION)(BEAKER) (test code = 2817) 12 % MONOCYTES - REL (CELLAVISION)(BEAKER) (test code = 2818) 12 % EOSINOPHILS - REL (CELLAVISION)(BEAKER) (test code = 2819) 5 % BASOPHILS - REL (CELLAVISION)(BEAKER) (test code = 2820) 1 % METAMYELOCYTES - REL (CELLAVISION)(BEAKER) (test code = 2821) 1 % 0-0 H MYELOCYTES - REL (CELLAVISION)(BEAKER) (test code = 2822) 1 % 0-0 H NEUTROPHILS - ABS (CELLAVISION)(BEAKER) (test code = 2830) 7.10 K/ul 1.78-5.38 H LYMPHOCYTES - ABS (CELLAVISION)(BEAKER) (test code = 2831) 1.27 K/ul 1.32-3.57 L MONOCYTES - ABS (CELLAVISION)(BEAKER) (test code = 2832) 1.27 K/uL 0.30-0.82 H EOSINOPHILS - ABS (CELLAVISION)(BEAKER) (test code = 2834) 0.53 K/u L 0.04-0.54 BASOPHILS - ABS (CELLAVISION)(BEAKER) (test code = 2835) 0.11 K/uL 0.01-0.08 H METAMYELOCYTES - ABS (CELLAVISION)(BEAKER) (test code = 2836 ) 0.11 K/uL 0.00-0.00 H MYELOCYTES-ABS (CELLAVISION)(BEAKER) (test code = 2837) 0.11 K/uL 0.00-0.00 H TOTAL COUNTED (BEAKER) (test code = 1351) 100 PLT MORPHOLOGY (BEAKER) (test code = 486) Normal SMUDGE CELLS (BEAKER) (test code = 1371) Present DOHLE BODIES (BEAKER) (test code = 359) Present VACUOLATED NEUTROPHILS (BEAKER) (test code = 483) Present POLYCHROMATOPHILLIC RBCS(BEAKER) (test code = 478) 3+ many ANISOCYTOSIS (BEAKER) (test code = 961) 1+ few MACROCYTES (BEAKER) (test code = 964) 1+ few POIKILOCYTES (BEAKER) (test code = 966) 1+ few SCHISTOCYTES (BEAKER) (test code = 765) 1+ few ARTIFACT (CELLAVISION)(BEAKER) (test code = 3432) Present PLATELET CONCENTRATION (CELLAVISION)(BEAKER) (test code = Adequate 3438) Administrative Processor ID - Ponce Dato-onUser comments: Slide comments:CBC W/PLT COUNT & AUTO [id number] 12:27:49 Test Item Value Reference Range Interpretation Comments WHITE BLOOD CELL COUNT (BEAKER) 10.6 K/ L 3.5-10.5 H (test code = 775) RED BLOOD CELL COUNT (BEAKER) 3.37 M/ L 4.63-6.08 L (test code = 761) HEMOGLOBIN (BEAKER) (test code = 10.6 GM/DL 13.7-17.5 L 410) HEMATOCRIT (BEAKER) (test code = 34.2 % 40.1-51.0 L 411) MEAN CORPUSCULAR VOLUME (BEAKER) 101.5 fL 79.0-92.2 H (test code = 753) MEAN CORPUSCULAR HEMOGLOBIN 31.5 pg 25.7-32.2 (BEAKER) (test code = 751) MEAN CORPUSCULAR HEMOGLOBIN CONC 31.0 GM/DL 32.3-36.5 L (BEAKER) (test code = 752) RED CELL DISTRIBUTION WIDTH 15.5 % 11.6-14.4 H (BEAKER) (test code = 412) PLATELET COUNT (BEAKER) (test 187 K/CU MM 150-450 code = 756) MEAN PLATELET VOLUME (BEAKER) 9.4 fL 9.4-12.4 (test code = 754) NUCLEATED RED BLOOD CELLS 0 /100 WBC 0-0 (BEAKER) (test code = 413) BASIC METABOLIC [id number] 10:35:58 Test Item Value Reference Range Interpretation Comments SODIUM (BEAKER) 135 meq/L 136-145 L (test code = 381) POTASSIUM (BEAKER) 4.7 meq/L 3.5-5.1 (test code = 379) CHLORIDE (BEAKER) 102 meq/L 98-107 (test code = 382) CO2 (BEAKER) (test 27 meq/L 22-29 code = 355) BLOOD UREA NITROGEN 22 mg/dL 7-21 H (BEAKER) (test code = 354) CREATININE (BEAKER) 1.31 mg/dL 0.57-1.25 H (test code = 358) GLUCOSE RANDOM 247 mg/dL 70-105 H (BEAKER) (test code = 652) CALCIUM (BEAKER) 8.9 mg/dL 8.4-10.2 (test code = 697) EGFR (BEAKER) (test 53 mL/min/1.73 ESTIMA VY GFR IS code = 1092) sq m NOT ACCURATE CREATININE CLEARANCE IN PREDICTING GLOMERULAR FILTRATION RATE . ESTIMATED GFR I S NOT APPLICABLE FOR DIALYSIS PATIEN TS. Administrative Processor ID - BSPOC-Glucose [id number] 07:57:19 Test Item Value Reference Range Interpretation Comments POC-Glucose Meter (test 180 mg/dL 70-110 H : [facility] code = 1538) [address] [facility], 770 30: Administrative Processor/Techni heather ID = [id number] for ROHIT Murillo Lab Interpretation (test Abnormal code = 74307-9) [facility] [id number] 07:57:19 Test Item Value Reference Range Interpretation Comments POC-GLUCOSE METER 180 mg/dL 70-110 H : TESTED A T [facility] 6720 (BEAKER) (test code [facility], = 1538) 52295: Administrative Processor/Techni heather ID = [id number] for ROSIE So OG POCT-GLUCOSE [id number] 22:44:00 Test Item Value Reference Range Interpretation Comments POC-GLUCOSE METER 153 mg/dL 70-110 H : TESTED A T [facility] 6720 (BEAKER) (test code = [facility], 1538) 49175: Administrative Processor/Techni heather ID = [id number] for DARRION GARRISON POCT-GLUCOSE [id number] 17:03:50 Test Item Value Reference Range Interpretation Comments POC-GLUCOSE METER 148 mg/dL 70-110 H : TESTED A T [facility] 6720 (BEAKER) (test code [facility], = 1538) 53264: Administrative Processor/Techni heather ID = [id number] for YMLES Lozada, YAIRAND OG POCT-GLUCOSE [id number] 13:48:08 Test Item Value Reference Range Interpretation Comments POC-GLUCOSE METER 149 mg/dL 70-110 H : TESTED A T [facility] 67[address] (BEAKER) (test code = [facility], 1538) 11401: Administrative Processor/Techni heather ID = [id number] for Brandon rosasell, Moses POCT-GLUCOSE [id number] 08:30:33 Test Item Value Reference Range Interpretation Comments POC-GLUCOSE METER 162 mg/dL 70-110 H : TESTED A T [facility] 6720 (BEAKER) (test code [facility], = 1538) 02996: Administrative Processor/Techni heather ID = [id number] for MYLES Lozada, LATAND OG [id number] 05:34:01 Test Item Value Reference Range Interpretation Comments PARTIAL THROMBOPLASTIN TIME 45.4 seconds 22.5-36.0 H (BEAKER) (test code = 760) POCT-GLUCOSE [id number] 22:31:51 Test Item Value Reference Range Interpretation Comments POC-GLUCOSE METER 145 mg/dL 70-110 H : TESTED A T [facility] 6720 (BEAKER) (test code = [facility], 1538) 75685: Administrative Processor/Techni heather ID = [id number] for MARIO FOX POCT-GLUCOSE [id number] 13:17:41 Test Item Value Reference Range Interpretation Comments POC-GLUCOSE METER 152 mg/dL 70-110 H : TESTED A T [facility] 6720 (BEAKER) (test code = [facility], 1538) 34606: Administrative Processor/Techni heather ID = [id number] for UNIQUE SINGER POCT-GLUCOSE [id number] 10:28:49 Test Item Value Reference Range Interpretation Comments POC-GLUCOSE METER 132 mg/dL 70-110 H : TESTED A T [facility] 67[address] (BEAKER) (test code = [facility], 1538) 54150: Administrative Processor/Techni heather ID = [id number] for UNIQUE SINGER [id number] 05:42:20 Test Item Value Reference Range Interpretation Comments PARTIAL THROMBOPLASTIN TIME 109.7 seconds 22.5-36.0 H (BEAKER) (test code = 760) [id number] 22:53:04 Test Item Value Reference Range Interpretation Comments PARTIAL THROMBOPLASTIN TIME 102.5 seconds 22.5-36.0 H (BEAKER) (test code = 760) POCT-GLUCOSE [id number] 21:17:31 Test Item Value Reference Range Interpretation Comments POC-GLUCOSE METER 131 mg/dL 70-110 H : TESTED A T [facility] 6720 (BEAKER) (test code = [facility], 1538) 54215: Administrative Processor/Techni heather ID = [id number] for Ng shaun (contract), Sarah ra POCT-GLUCOSE [id number] 17:50:58 Test Item Value Reference Range Interpretation Comments POC-GLUCOSE METER 151 mg/dL 70-110 H : TESTED A T [facility] 6720 (BEAKER) (test code [facility], = 1538) 22943: Administrative Processor/Techni heather ID = [id number] for ROSIE So OG [id number] 15:38:28 Test Item Value Reference Range Interpretation Comments PARTIAL THROMBOPLASTIN TIME 57.2 seconds 22.5-36.0 H (BEAKER) (test code = 760) POCT-GLUCOSE [id number] 12:54:42 Test Item Value Reference Range Interpretation Comments POC-GLUCOSE METER 152 mg/dL 70-110 H : TESTED A T [facility] 6720 (BEAKER) (test code [facility], = 1538) 53763: Administrative Processor/Techni heather ID = [id number] for ROSIE So OG POCT-GLUCOSE [id number] 08:26:04 Test Item Value Reference Range Interpretation Comments POC-GLUCOSE METER 133 mg/dL 70-110 H : TESTED A T [facility] 6720 (BEAKER) (test code [facility], = 1538) 09839: Administrative Processor/Techni heather ID = [id number] for ROSIE So OG [id number] 08:17:46 Test Item Value Reference Range Interpretation Comments PARTIAL THROMBOPLASTIN TIME 86.4 seconds 22.5-36.0 H (BEAKER) (test code = 760) SRIRAM's Only(Ankle/Brachial Index)2021-06-02 08:03:53Ejection FractionSLE ECHO HEARTLAB MKCKESSON [facility]22-[facility] 00:44:06 Test Item Value Reference Range Interpretation Comments PARTIAL THROMBOPLASTIN TIME 114.8 seconds 22.5-36.0 H (BEAKER) (test code = 760) POCT-GLUCOSE [id number] 22:35:29 Test Item Value Reference Range Interpretation Comments POC-GLUCOSE METER 161 mg/dL 70-110 H : TESTED A T [facility] 6720 (BEAKER) (test code = [facility], 1538) 93982: Administrative Processor/Techni heather ID = [id number] for DARRION GARRISON Arterial Doppler Legs [id number] 19:15:49Ejection FractionSLEH ECHO HEARTLAB MKCKESSON CPACSCH[facility] HospitalRAD, FOOT, MIN 3 VIEWS, LEFT 2021-06-01 18:40:00Reason for exam:->rule out osteo 3rd digit left foot [facility] : 1945 Sex: MFINAL REPORT TECHNIQUE: 3 views of the right foot. INDICATION: rule out osteo 3rd digit left foot. COMPARISON: None. FINDINGS:Erosion of the tuft of the third digit. 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 Extensive calcification of the arteries of the ankle and foot. IMPRESSION: Acute osteomyelitis of the tuft of the third toe. Signed: Jayesh Lino Verified Date/Time: 06/01/2021 18:40:50 Reading Location: [address] Body Reading Room [id number] 18:31:45 Test Item Value Reference Range Interpretation Comments PARTIAL THROMBOPLASTIN TIME 58.0 seconds 22.5-36.0 H (ZHANGAKER) (test code = 760) POCT-GLUCOSE [id number] 17:10:34 Test Item Value Reference Range Interpretation Comments POC-GLUCOSE METER 144 mg/dL 70-110 H : TESTED A T [facility] 67[address] (BEAKER) (test code = [place], 1538) 95642: Administrative Processor/Techni heather ID = [id number] for BESSIE HARPER POCT-GLUCOSE [id number] 12:20:53 Test Item Value Reference Range Interpretation Comments POC-GLUCOSE METER 143 mg/dL 70-110 H : TESTED A T [facility] 6720 (BEAKER) (test code = [place], 1538) 54511: Administrative Processor/Techni heather ID = [id number] for BESSIE HARPER [id number] 12:06:45 Test Item Value Reference Range Interpretation Comments PARTIAL THROMBOPLASTIN TIME 63.1 seconds 22.5-36.0 H (BEAKER) (test code = 760) POCT-GLUCOSE [id number] 08:15:50 Test Item Value Reference Range Interpretation Comments POC-GLUCOSE METER 116 mg/dL 70-110 H : TESTED A T [facility] 6720 (BEAKER) (test code = [place], 1538) 11400: Administrative Processor/Techni heather ID = [id number] for BESSIE HARPER VITAMIN B12 AND [id number] 07:04:04 Test Item Value Reference Range Interpretation Comments VITAMIN B12 952 pg/mL 213-816 H (BEAKER) (test code = 774) FOLATE (BEAKER) 13.00 ng/mL See_Comment [Automated message] (test code = 362) The system which generated this result transmitted ref erence range: >=7.00. The reference range was not used to interpr et this result as normal/abnormal . Administrative Processor ID - PIAYA L(CELLAVISION MANUAL DIFF)2021-06-01 06:54:17 Test Item Value Reference Range Interpretation Comments NEUTROPHILS - REL 60 % (CELLAVISION)(BEAKER) (test code = 2816) LYMPHOCYTES - REL 18 % (CELLAVISION)(BEAKER) (test code = 2817) MONOCYTES - REL 17 % (CELLAVISION)(BEAKER) (test code = 2818) EOSINOPHILS - REL 2 % (CELLAVISION)(BEAKER) (test code = 2819) BASOPHILS - REL 1 % (CELLAVISION)(BEAKER) (test code = 2820) PROMYELOCYTES - REL 1 % 0-0 H (CELLAVSION)(BEAKER) (test code = 2825) NEUTROPHILS - ABS 4.50 K/ul 1.78-5.38 (CELLAVISION)(BEAKER) (test code = 2830) LYMPHOCYTES - ABS 1.35 K/ul 1.32-3.57 (CELLAVISION)(BEAKER) (test code = 2831) MONOCYTES - ABS 1.28 K/uL 0.30-0.82 H (CELLAVISION)(BEAKER) (test code = 2832) EOSINOPHILS - ABS 0.15 K/uL 0.04-0.54 (CELLAVISION)(BEAKER) (test code = 2834) BASOPHILS - ABS 0.08 K/uL 0.01-0.08 (CELLAVISION)(BEAKER) (test code = 2835) PROMYELOCYTES - ABS 0.08 K/uL 0.00-0.00 H (CELLAVISION)(BEAKER) (test code = 2838) TOTAL COUNTED (BEAKER) (test code = 100 1351) RBC MORPHOLOGY (BEAKER) (test code Normal = 762) WBC MORPHOLOGY (BEAKER) (test code Normal = 487) PLT MORPHOLOGY (BEAKER) (test code Normal = 486) SMUDGE CELLS (BEAKER) (test code = Present 1371) ANISOCYTOSIS (BEAKER) (test code = 1+ few 961) MICROCYTES (BEAKER) (test code = 1+ few 965) POIKILOCYTES (BEAKER) (test code = 1+ few 966) TEAR DROP CELLS (BEAKER) (test code 1+ few = 481) ARTIFACT (CELLAVISION)(BEAKER) Present (test code = 3432) PLATELET CONCENTRATION Adequate (CELLAVISION)(BEAKER) (test code = 3438) Administrative Processor ID - Ponce Dato-onUser comments: Slide comments:CBC W/PLT COUNT & AUTO [id number] 06:54:16 Test Item Value Reference Range Interpretation Comments WHITE BLOOD CELL COUNT (BEAKER) 7.5 K/ L 3.5-10.5 (test code = 775) RED BLOOD CELL COUNT (BEAKER) 3.22 M/ L 4.63-6.08 L (test code = 761) HEMOGLOBIN (BEAKER) (test code = 10.2 GM/DL 13.7-17.5 L 410) HEMATOCRIT (BEAKER) (test code = 32.9 % 40.1-51.0 L 411) MEAN CORPUSCULAR VOLUME (BEAKER) 102.2 fL 79.0-92.2 H (test code = 753) MEAN CORPUSCULAR HEMOGLOBIN 31.7 pg 25.7-32.2 (BEAKER) (test code = 751) MEAN CORPUSCULAR HEMOGLOBIN CONC 31.0 GM/DL 32.3-36.5 L (BEAKER) (test code = 752) RED CELL DISTRIBUTION WIDTH 15.4 % 11.6-14.4 H (BEAKER) (test code = 412) PLATELET COUNT (BEAKER) (test 168 K/CU MM 150-450 code = 756) MEAN PLATELET VOLUME (BEAKER) 9.4 fL 9.4-12.4 (test code = 754) NUCLEATED RED BLOOD CELLS 0 /100 WBC 0-0 (BEAKER) (test code = 413) HEPATIC FUNCTION [id number] 06:35:05 Test Item Value Reference Range Interpretation Comments TOTAL PROTEIN (BEAKER) (test code = 6.1 gm/dL 6.0-8.3 770) ALBUMIN (BEAKER) (test code = 1145) 3.0 g/dL 3.5-5.0 L BILIRUBIN TOTAL (BEAKER) (test code 0.5 mg/dL 0.2-1.2 = 377) BILIRUBIN DIRECT (BEAKER) (test 0.3 mg/dL 0.1-0.5 code = 706) ALKALINE PHOSPHATASE (BEAKER) (test 106 U/L 40-150 code = 346) AST (SGOT) (BEAKER) (test code = 12 U/L 5-34 353) ALT (SGPT) (BEAKER) (test code = 11 U/L 6-55 347) Administrative Processor ID - DBC-REACTIVE [id number] 06:35:05 Test Item Value Reference Range Interpretation Comments C-REACTIVE PROTEIN (BEAKER) (test 2.32 mg/dL 0.00-0.50 H code = 676) Administrative Processor ID - DBBASIC METABOLIC [id number] 06:35:04 Test Item Value Reference Range Interpretation Comments SODIUM (BEAKER) 137 meq/L 136-145 (test code = 381) POTASSIUM (BEAKER) 3.9 meq/L 3.5-5.1 (test code = 379) CHLORIDE (BEAKER) 106 meq/L 98-107 (test code = 382) CO2 (BEAKER) (test 22 meq/L 22-29 code = 355) BLOOD UREA NITROGEN 16 mg/dL 7-21 (BEAKER) (test code = 354) CREATININE (BEAKER) 1.06 mg/dL 0.57-1.25 (test code = 358) GLUCOSE RANDOM 124 mg/dL 70-105 H (BEAKER) (test code = 652) CALCIUM (BEAKER) 8.7 mg/dL 8.4-10.2 (test code = 697) EGFR (BEAKER) (test 68 mL/min/1.73 ESTIMA VY GFR IS code = 1092) sq m NOT ACCURATE CREATININE CLEARANCE IN PREDICTING GLOMERULAR FILTRATION RATE . ESTIMATED GFR I S NOT APPLICABLE FOR DIALYSIS PATIEN TS. Administrative Processor ID - [id number] 05:49:53 Test Item Value Reference Range Interpretation Comments PARTIAL THROMBOPLASTIN TIME 41.1 seconds 22.5-36.0 H (BEAKER) (test code = 760) SARS-CoV2/RT-PCR (Asymptomatic ONLY)2021-06-01 05:02:05 Test Item Value Reference Range Interpretation Comments SARS-COV2/RT-PCR Negative Not Detected, (test code = Negative, See 67020-8) external report for linked test SARS-COV-2 [facility] (test code = 65896-6) CACHORRO (test code = Negative result for this CACHORRO) test determines that SARS-CoV-2 RNA was not [...] be considered in cases of suspected false negatives. The limit of detection for this assay is 800 copies/mL. This SARS CoV-2 test is a real-time RT-PCR [...] of the Act. Fact Sheet for Healthcare Providers:https://www.D-Share/sites/default/f sarah/product/documents/F act_Sheet_HC_Providers_L yqr_WCMG-ZwG-0.pdf Fact Sheet for Healthcare Patients:https://www.AdsIt/sites/default/fi les/product/documents/Fa ct_Sheet_Patients_Lyra_S ARS-CoV-2.pdf Performing Laboratory:[facility], [place] [address] [place], [place] [address]ARS-COV2/RT-PCR ([facility])2021-06-01 05:02:05 Test Item Value Reference Range Interpretation Comments SARS-COV2/RT-PCR (test Negative Not Detected, Negative, code = 4388327) See external report for linked test SARS-COV-2 PERFORMING LAB [facility] (test code = 4397918) Negative result for this test determines that [...] limit of detection for this assay is 800 copies/mL.This SARS CoV-2 test is a real-time [...] 564(g) of the Act.Fact Sheet for Healthcare Providers:https://www.Parrut/sites/default/files/product/documents/Fact_Shee i_AO_Ysakejeom_Gdzc_MZSI-FqL-9.pdfFact Sheet for Healthcare Patients:https://www.Parrut/sites/default/files/product/ documents/Evxy_Ayfpc_Grucbidd_Astx_RAJV-XtJ-3.pdfPerforming Laboratory:[facility], [place] [id number] 23:51:02 Test Item Value Reference Range Interpretation Comments PARTIAL THROMBOPLASTIN TIME 50.6 seconds 22.5-36.0 H (BEAKER) (test code = 760) [id number] 22:57:30 Test Item Value Reference Range Interpretation Comments PARTIAL THROMBOPLASTIN TIME > seconds 22.5-36.0 HH (BEAKER) (test code = 760) POCT-GLUCOSE [id number] 22:35:55 Test Item Value Reference Range Interpretation Comments POC-GLUCOSE METER 149 mg/dL 70-110 H : TESTED A T [facility] [address] ([place]) (test code = [place], 1538) 01355: Administrative Processor/Techni heather ID = [id number] for MARIO FOX POCT-GLUCOSE [id number] 17:26:04 Test Item Value Reference Range Interpretation Comments POC-GLUCOSE METER 187 mg/dL 70-110 H : TESTED A T [facility] 6720 (BEAKER) (test code = [place], 1538) 56995: Administrative Processor/Techni heather ID = [id number] for ZIGGY CAMILO BASIC METABOLIC [id number] 15:13:01 Test Item Value Reference Range Interpretation Comments SODIUM (BEAKER) 138 meq/L 136-145 (test code = 381) POTASSIUM (BEAKER) 4.1 meq/L 3.5-5.1 (test code = 379) CHLORIDE (BEAKER) 107 meq/L 98-107 (test code = 382) CO2 (BEAKER) (test 24 meq/L 22-29 code = 355) BLOOD UREA NITROGEN 15 mg/dL 7-21 (BEAKER) (test code = 354) CREATININE (BEAKER) 1.02 mg/dL 0.57-1.25 (test code = 358) GLUCOSE RANDOM 196 mg/dL 70-105 H (BEAKER) (test code = 652) CALCIUM (BEAKER) 8.6 mg/dL 8.4-10.2 (test code = 697) EGFR (BEAKER) (test 71 mL/min/1.73 ESTIMA VY GFR IS code = 1092) sq m NOT ACCURATE CREATININE CLEARANCE IN PREDICTING GLOMERULAR FILTRATION RATE . ESTIMATED GFR I S NOT APPLICABLE FOR DIALYSIS PATIEN TS. Administrative Processor ID - SARBJIT [id number] 15:10:38 Test Item Value Reference Range Interpretation Comments PARTIAL THROMBOPLASTIN TIME 34.9 seconds 22.5-36.0 (BEAKER) (test code = 760) CBC (HEMOGRAM ONLY)2021-05-31 14:54:18 Test Item Value Reference Range Interpretation Comments WHITE BLOOD CELL COUNT (BEAKER) 7.7 K/ L 3.5-10.5 (test code = 775) RED BLOOD CELL COUNT (BEAKER) 3.43 M/ L 4.63-6.08 L (test code = 761) HEMOGLOBIN (BEAKER) (test code = 10.8 GM/DL 13.7-17.5 L 410) HEMATOCRIT (BEAKER) (test code = 35.1 % 40.1-51.0 L 411) MEAN CORPUSCULAR VOLUME (BEAKER) 102.3 fL 79.0-92.2 H (test code = 753) MEAN CORPUSCULAR HEMOGLOBIN 31.5 pg 25.7-32.2 (BEAKER) (test code = 751) MEAN CORPUSCULAR HEMOGLOBIN CONC 30.8 GM/DL 32.3-36.5 L (BEAKER) (test code = 752) RED CELL DISTRIBUTION WIDTH 15.4 % 11.6-14.4 H (BEAKER) (test code = 412) PLATELET COUNT (BEAKER) (test 173 K/CU MM 150-450 code = 756) MEAN PLATELET VOLUME (BEAKER) 9.6 fL 9.4-12.4 (test code = 754) NUCLEATED RED BLOOD CELLS 0 /100 WBC 0-0 (BEAKER) (test code = 413) POCT-GLUCOSE [id number] 16:02:46 Test Item Value Reference Range Interpretation Comments POC-GLUCOSE METER 75 mg/dL 70-110 : TESTED A T [facility] 6720 (BEAKER) (test code = [facility], 1538) 11881: Administrative Processor/Techni heather ID = [id number] for CHARLOTTE MCHUGH RA POCT-GLUCOSE [id number] 15:30:00 Test Item Value Reference Range Interpretation Comments POC-GLUCOSE METER 74 mg/dL 70-110 : TESTED A T [facility] (BEAKER) (test code = [facility], 1538) 59909: Administrative Processor/Techni heather ID = [id number] for Andra Louis BASIC METABOLIC [id number] 09:36:15 Test Item Value Reference Range Interpretation [...] I S NOT APPLICABLE FOR DIALYSIS PATIEN ENOC. Administrative Processor ID - NIURKA [id number] 09:30:12 Test Item Value Reference Range Interpretation Comments PARTIAL THROMBOPLASTIN TIME 33.8 seconds 22.5-36.0 (BEAKER) (test code = 760) Prothrombin time/[id number] 09:29:16 Test Item Value Reference Interpretation Comments Range Protime (test code = 16.6 See_Comment H [Autom ated 7862-2) message] The system which generated this result transmitted reference range : 11.9 - 14.2 seconds. The reference range was not used to interpret this result as normal/abnormal . INR (test code = 1.36 See_Comment [Automated 3241-6) message] The system which generated this result transmitted reference range : <=5.90. The reference range was not used to interpret this result as normal/abnormal . CACHORRO (test code = RECOMMENDED CACHORRO) COUMADIN/WARFARIN INR THERAPY RANGESSTANDARD DOSE: 2.0 - 3.0 Includes: PROPHYLAXIS for venous thrombosis, systemic embolization; TREATMENT for venous thrombosis and/or pulmonary embolus.HIGH RISK: Target INR is 2.5-3.5 for patients with mechanical heart valves. Lab Interpretation Abnormal (test code = 41418-6) [facility] WomenPROTHROMBIN TIME/[id number] 09:29:16 Test Item Value Reference Range Interpretation Comments PROTIME (BEAKER) 16.6 seconds 11.9-14.2 H (test code = 759) INR (BEAKER) (test 1.36 See_Comment [Automat ed message] code = 370) The system Hubs1 generated this result transmitted ref erence range: [...] 0-0 (BEAKER) (test code = 413) SARS-COV2/RT-PCR ([facility])2020-11-07 20:30:42 Test Item Value Reference Range Interpretation Comments SARS-COV2/RT-PCR (test code = Negative Negative 6043183) Negative result for this test determines that [...] the [place] SARS-CoV-2 assay.Fact Sheet for Healthcare Providers:https://www.molecular.[employer]/libby/RT SARS-CoV-2 HCP Fact Sheet 51- 512501.pdfFact Sheet for Healthcare Patients:https://www.[employer].pacheco/libby/RT SARS-CoV-2 Patient Fact Sheet EN 51-433889I2.pdfCBC W/PLT COUNT & AUTO [id number] 14:10:03 Test Item Value Reference Range Interpretation [...] CONCENTRATION Decreased (CELLAVISION)(BEAKER) (test code = 3438) Administrative Processor ID - Niurka Mahajan comments: Slide comments:BASIC METABOLIC [id number] 12:39:39 Test Item Value Reference Range Interpretation [...] S NOT APPLICABLE FOR DIALYSIS PATIEN TS. Administrative Processor ID - SARBJIT MPROTHROMBIN TIME/[id number] 11:55:55 Test Item Value Reference Range Interpretation Comments PROTIME (BEAKER) 18.8 seconds 11.9-14.2 H (test code = 759) INR (BEAKER) (test 1.60 See_Comment [Automat ed message] code = 370) The system Hubs1 generated this result transmitted ref erence range: <=5.90. The reference range was not used to int erpret this result as normal/abnormal . RECOMMENDED COUMADIN/WARFARIN INR THERAPY RANGESSTANDARD DOSE: 2.0 - 3.0 Includes: PROPHYLAXIS forvenous thrombosis, systemic embolization; TREATMENT for venous thrombosis and/or pulmonary embolus.HIGH RISK: Target INR is 2.5-3.5 for patients with mechanical heart valves.RAD, FOOT, MIN 3 VIEWS, [id number] 14:28:00Reason for Exam:->STATUS POST AMPUTATION OF RIGHT GREAT TOEReason for Exam:->[facility]STA : 1945 Sex: MFINAL REPORT Exam: Right foot three views History: Amputation Comparison: August 27, 2020 Findings: Amputation across the hallux MTP joint. Overlying soft tissue irregularity. Soft tissue swelling. No progressive erosive change of the metatarsal. Vascular calcifications. Small calcaneal enthesophytes. Impression: Amputation across the hallux MTP joint. No progressive osteomyelitis. Signed: Barbara Eubanks Verified Date/Time: 10/16/2020 14:28:01 Reading Location: [facility] Reading Room [address] [place] [address] Electronically signed by: Barbara Eubanks on 102:28 PMRAD, FOOT, MIN 3 VIEWS, [id number] 12:32:00Reason for Exam:->post-operative stateReason for Exam:->status post amputation of right great toe [facility] KRYSTA : 1945 Sex: MFINAL REPORT Exam: [...] findings of osteomyelitis. Attention on follow-up. Signed: Babrara Eubanks Verified Date/Time: 09/04/2020 12:32:23 Reading Location: [facility] Reading Room [address] [place] [address] XR foot 3 views [id number] 12:32:00Interface, External Ris In - 09/04/2020 12:34 [...] Eubanks Verified Date/Time: 09/04/2020 12:32:23 Reading Location: [facility] Reading Room [address] [place] [address] [facility] WomenT[facility] [id number] 16:35:00 Test Item Value Reference Range Interpretation Comments Case Report (test code Surgical Pathology = 104) Report Case: [id number] Authorizing Provider: Aleksandr Duong DPM Collected: 07/02/2020 01:10 PM [facility] Received: 07/02/2020 01:28 PM SERVICES Pathologist: Nadine Butler MD Specimen: Toe, Right, right great toe DIAGNOSIS (test code = v4cvgXItSFXlb7zqWQOqjVD 3220) uZzEwMzNcZnRuYmpcdWMxIH tccnRmMVxlcGljOTIwMlxhb dAiLPKvjQSuK3NybsodOAjd QP6rZO3qoIflhFVxjIFbRJN uXnTdr5fzb986tDPbt7nmVE CGgbnhcFd8uFpuB27yk6I2O jyhP84pzUDkOFuvnBZgycsn cqYvFZISD6VqBJXDL7qARAb GJDxGQDqmWZ1IFTIEHHyDNl etgONeVD8uD6HLQ2EGBhDgK C6HL4jGRJ2LEWAAIZ4yOA3Z HNVAOhYyPWeCQ8KGSQTolxU hMIQSQrLxG0iLXNZFYgPKCd 7QKcHWALQBCVWXFC8XB0KQZ 0lTXHBhciAtIFNPRlQgVElT E5WYNRQKNALJKTUXYMHOEE3 bCP5EG0iRKHCoNnojMD9FCS QSNJCJF5IGIXWEP7ROE6Jgc PRvNZ3qWVQOHCOCTBYWXTQT UlRJTEFHRSBBVCBUSEUgTUF DS5kSBCMBAtGIVINLC2QCHE VfpAOwQF1xIdPDDPTUWuLpM g9KEI3OTUfYYiBZG8cnsWRd GNOxqb63LDK3HnFlf5L7CAM 8JZMbFFWpu4mrFURnkKYzYs EwMzNcZnRuYmpcdWMxXGRlZ kGgf0bcv813xBIbn8wdEHVa TtE1rQPtHXIaeDJuX914SFG rENroh3dyc5YpXMSmyLOqj7 W7DWHUzkjfyBw7eMbhH94em 2W9TtoeY2uvQQHsHWNtQ9Dq FP9kYGMwXcz4BAX2EPD5XGS xNEWoL7VuLR4fKADkiGJhQF p7z2rmgBcxVEZgIUN5c7onW MnswaQvZU0rqs6fePo2s1ai ybCdFOKeQNYwhZINLBLsJ4A nrLwwFc1vvTl4dPmzXfoyWN A8Qqr0MZ7cum79bdk4oVskI AKumvimSwK0PWekYQHoyrvy NMh0PVmhCHWtqZY2SPNdsKX vK2VoSSKfVM4shgv6FRX4KW ubGRXjBqI5QZDfvNMyOTZjg MijFXktz036VZW8HqRiHK7f Z9Xls2J6kC3ahCGqVJWkeSF zWtIpLJIokg3brBHyEGdji7 EyFLJ2bkM3uQZqfLQbJOOcA lT3SNxeBM3yqn25FNGpRWE8 sj4xbCAmaTlflfGvnIBiNDb tQ3XjPTLpq297YJBoA2MzZU Iyr6P6wlNsFpPtTTIgiGB5k gU6YKJxZK8ubdaec8rbDZih BHgaJOSqruI8zbX2BNPghJL oN9SopS5bBWOtMD9atytbp2 qqTPV8UPnaERBkSJC5NaTuJ UPke5Cmeoq5SwIrj0PrqYKu JFzbE14um892XOUbdpQeB4k wbGFpblxwbGFpblxmMFxmcz R2AWMtOYaqcsxlBHEvRTfrB 7qkFaScGBHtoXjwVIewh6Us XGYxXGZzMjJcdGFiXHRhYlx 1YOIciYMgLOUaQuSoZ3dbpd xtPpMBVDXxs6uwN3cpdKGCf TIxC5NwFUnbdnTzXEpuNCen GVPsITA6KU45QML5EVLuqh7 9 CPT Code(s) (test code h4kujNCoBRDcyHX0HiWiXHI = 3357) er9pjz4SzoWAzzNRpTDrphM GzogDvob94jDX3jQ66DI9vY XJjJjP2WWIvlwH2Dwz7JHEi NYSxjHWnZ728x9arx4zxuiE ddFG7iRofYLWcPYTaXDitRJ RkMuTnQWmpFQL0OAp2UqImP HBhcn0= CLINICAL HISTORY (test v2svnJRqINWgzNX9YwSuATP code = 3356) cp9ytk0JqxNWyeGHeAWqdnT ZlduRqws94jMI6iO46QS6oQ CTxFiK3WDEzfyL5Eik9SHTv KJFylXDyN500z8jku3lycxP reZR7vSogXQEuDSWzBLjhHQ QdVjCkR1OqC8XuuxEckJGtf Q== SPECIMEN SOURCE (test m3pqhTJcZHUnoJP4EfUbQCM code = 3377) ms4bzs5KbvYZznJLtFVpszU YfaxXsoj94rVP8fD26NX6dX GSsOqI1BSDfitF2Zmf3VRYg WNFdhWEeX451z6aeb2cldnO zjEN6rSttBLOsVIBnJQeoZH HsYsKuYH2vTXEjhHcjrZdgH XJ9 GROSS DESCRIPTION w3fnqIOcBCCocPHzXvZxXHG (test code = 3366) uCVNre3hhAEUgtRTgKhKeSh NcZnRuYmpcdWMxXGRlZmYwe 0nuj172pIClu8wfONRhDzH2 xKSeDHJacAPaB200r4ibr3u jpsRbtXM5BGNhEWP9DJrdli MyeoE6CBxgqSMtPtA9PCptd kPlDZqwruJghfLrRew3CKBa R995MJT2iAidy8zjYAQ6ETD yQZJlSkBsEt3acTIvU039SL GjZXNYGTEniNk5CILnlxNjg sCyyIARj091R445o5twZHTe uhYapBmMhluza5thK403ECT hcGVydzEyMjQwXHBhcGVyaD V2JKEnZC6azcmfLnCxVF5zm jbgPfBmBI5dhpz2WhKfRX9z cmdiNzIwXGhlYWRlcnkwXGZ dz7RltkgfHF8mN2Vzz0H7kY 9maXRcZGVmdGFiNzIwXGZvc j6ufRXcBSwha7LmGCW6oqW2 fJQkcPDkZNTtTY33Prkib2F nZxpeJVW4LWSjikTsf5Njx4 lcZwDuohLzY3cfS2PzRSPmF LNiMUYpPoJaibMak1Ypg0Xx aTGsuPr7y7laFRGjEEHnvNu jk0liNML8UWItL3B6gKImh1 weCUfzFNCbeTR9fbmbYKecC KJpngQ0xawzTHibVTXchAJ9 zmogEHxbPIZlZfN7siliEDn fLCLwQNH8IQucq415SHP5EW xzYmtwYWdlXHBnbmNvbnRcc GduZGVjXHBsYWluXHBsYWlu XGYwXGZzMjRccWxccGxhaW5 kApKfYxWmWNkyNP2uNZKnT0 qjrHYmTTJwGWWtX8apOfKva X7hfLhyILhmidJuOMQzAPJt R5AlkwHePCTuQERaLIawPpM bZVLop0y1eQT0kJAokFZ5rA EbtNysUyBdXM1pcYQrFC6wR MsfWEtgchYgp4EyGL11iFMe ciBhbmQgInRvZSwgcmlnaHQ cFYbqIZAhZElbJXU7nOK2uK S9ICAhpD3pPM2mYEH3lvagY uU5SjGnR18wqK4etYPtJ8Tv IGFuZCAzIGNtIGluIGRpYW1 ldGVyLiAgVGhlcmUgaXMgYS Syv02cFZt7QWT4zOQrrWRiB BX6bNkvu6PaVQOzULFoob23 XMoit9jhlJ6sfGyaIdSbIFs aLUdsvBGhJHwvi7LiMbJmYB TrdZMvrNM6phEwXPMxeZBtJ spklBJsTpRdH53gZ2ThI8Io bi16btU7nSPqdqUpz0JlwIG gHLRyHcHauCPnle5rHECkDF Pmw0ovYJ1epcawkzTrqvDwE EEqcWYtcs6vXPBjQUQeaDOl ksNhJ4HmRLXoRURue66bYfJ kEZfazcJvkOInIX0zGSA0oa DvkzTbTD4cmI54SA7zSNBua E5hTHxxK33ip3HmtCuotaT8 mKJpDJFewWOzHEdbRJC1tyD fkD3yjC0oCXWfGFB0oDPkez 1yPHXsMKZ4kxRqpra2hK7rC GJvbmUgaXMgcmVkIGFuZCBo MF8mnjLxCKslVsqsHJ4vRSD 0cXRhAYTdeNr1JPlkmEovHA ImK3VvoULoFFKuJFAeJbYvX aLlgwYjPI17HLLmfsSzc9Vy mEtjdzMcEDCfXTA6Xo4pxAR jJW1rlJVtBXZnmcWJTXD3eR 7uKFSvIOI9CZNmonNIJVdqS PpxHJJupN0jyJpqSVKid3Dc d1Hxf7yoqpQtXGBvtX7oIUG nzWNxZANvUBIdND4zdMA1rY WeCIJnQ1Uzr88bMWvtgTlov F1yVHIjxTfvLrMwk87hIJPo i1dpg2qwarnnEJRcRLvunCZ jF4I3vM9pJMLnxqFTKvyxDB heWAV9tIL9iDH7IELjWG4qM F3rSQYozjCeRVJrTIUcU6Sb RLLdtShjl8tuSjIdJCGjgJX xSqqaLWBzu43hyKLgLWOuzp NDkKHyp5BvODdmAROmVQDZS RSpYPXLQOfEF3THVEKsGUFw cn0= MICROSCOPIC v1hcpKYhWGCogUC4ZsYpBLA DESCRIPTION (test code gd5mko5OiwPSzaCZsBMqwnL = 3371) JpbxIfhr55eKP1pS07QT3cM TOlZjJ4TBPuefW3Ttj9KSAq APOepJNrR202b1moo3rdchY poIU5eJcyPEYsCVAqBNhlLL GgVsUsASMNKh3MRGENCEWve n0= [facility] HospitalTissue [id number] 16:35:00 Test Item Value Reference Range Interpretation Comments Case Report (test code Surgical Pathology = 104) Report Case: [id number] Authorizing Provider: Aleksandr Duong DPM Collected: 07/02/2020 01:10 PM [facility]ing [facility] Received: 07/02/2020 01:28 PM SERVICES Pathologist: Nadine Butler MD Specimen: Toe, Right, right great toe DIAGNOSIS (test code = l9kxlVAmQFMha7nxQMAdrGQ 3220) uZzEwMzNcZnRuYmpcdWMxIH tccnRmMVxlcGljOTIwMlxhb lSpLFTdxRCaQ6JcuzjfRRxp FM5eDN2boVulaTZrdCDjZVX kHoLkl6ieq598hZLdf0upTD ATfpcskHr6iCfzY01om7L1O mynW32kuVIsEOttaDVveslg jzHsCLVLI6CdJBQVO0cKQHj UIEsXMBusOO2WFBNDLPwECu cjaEXlGU0wR4VIB5JAYaFsW L1YX7pXXY9XQHVGUR5aHN7K JLOLZxPsSXyPB2WSORDlkdB tHNHSCfHeI3pIWWBORjMHUo 9QWnUMORRJBNMVYH7NZ0IUQ 0lTXHBhciAtIFNPRlQgVElT G1YZLJVKJEKKZOYRGERAOJ7 bRU4FC9cSPVImPacqAP9TQM VVUUDAO3PMVFUXI9JKM3Got FErKA3aUOUOXLKYFDMVKZPM UlRJTEFHRSBBVCBUSEUgTUF IH2iEUOYZXgGBQNVKU9WMKC PeeJCjZA8dCzVJBMHXIqIpD s0GTU3NCNqZAyIOD7bsoKSg SVWsya76AYO1ImBrb3K0BTP 7BNFkMLMqb8ikFGZkuMWcDl EwMzNcZnRuYmpcdWMxXGRlZ rUyl9fdl080gHByf4flCLHi OvU8pPTmMXHrkNHeX038BHZ mQOcat6dop6FeWJZtyIXog5 E4NYBHqfkrgJp2kNxfR85dx 0B5VwhpR5txZWUgLIVnO7Cx DV7yAECrYik1QCJ5OHD9HYU xNPYxO7GwWI3uMBFzdTKlYM e0y8dcqWpvZBGaVPT0w0ekL UoirsTfDN6uvu4hyLi5i4bt gjFrAPEeHLHdnAGOORZxJ9G bfJqnPa9hnLg4uQgqQoohLG T7Ymj4LC2fgi96mbr0cTayB LYmsfiyBvY5CBkyWPCojybs WHe4QXchNIFzeWX8HWQudYC dZ6TfEEUeNY1ovzo7FCR1FW ygEEHzEwT8CTBhpTQpJSEjd BskISdch857FFN5HjAcOR4m C4Spm8R3fG3ayNNgKPJsjRA fVuUaWNCcpf4xpIUxCPbjw5 TwAKQ4gyS6kMDeoCDjQAVkL oX3RNhjSC4vwy48DUFfZDC9 pd3hwODsbLqyosVtpHJoPRl pV6CmANKle676BCGfD3WfZZ Mzv2H0rqYkVrHbEIBfmVJ2b jM2ZECsWB0vkosio8tbSXfw MHwoJZViwmQ3inF6JFPpaKH hL4MnwN4yNUWiLP6sbzxtz3 adYDH2EAjhHZCcGOH5YtDyD BEgc9Imwfp4NdOvk5KqeLSt VUmsW97fn772SMGduuUxN4a wbGFpblxwbGFpblxmMFxmcz D7YEXhWHjlmqpyGSOzJYulQ 3iyJmScOSGczSrkGOytf7Wz XGYxXGZzMjJcdGFiXHRhYlx 2KRYufBHfASPoIyXkL6nsfj anJlIWDNEbx6fpJ0ifuJWEw OLvX6LzNYxcztLgTOysUBrj FBBvAQD5GI06UNE5ZKVmdd0 9 CPT Code(s) (test code i9cecVHfGFOknWP9FrEdEZL = 3357) ke8wkp8XiaUKtuAVxKBugpY KrytSodl89iWS2bD26CU2lT IZyIxR5IQPuhaV0Sfc8CLTd WMTjcUMsH049t6kzb8epixN cfZW3rNpwKVFhPLZyTNqaEY RePqOdSQhuNKU6MTj5HkWsV HBhcn0= CLINICAL HISTORY (test j6nnbXUkRTOxcVT3XtGqXRP code = 3356) nr4bzn7SpwPElvTCaEMmusG XcaaZprj80mSF8sQ16CI9jW ROnClM1RZKfngG5Hte5PUHc BKHttWSrK387d5ulq9gzynI dgPQ0pZxoFNIfKNRvDIgjIX McWaToF0HyE0RyuxUbeJSyb Q== SPECIMEN SOURCE (test o2ymcNJvVBTlqMY2DsNwLIJ code = 3377) wu9cub5NciTZgfDHuJLshcZ LfnlNfdw96xXW1tK71NU7wX YZvAuS9GQSphnP0Bou1VNTo OJQqlXJmR191s2sae6tpguN uaOW7kGiyOGOgTGKiZJibIV IlSpRpRN1sEZYfaBtahYebR XJ9 GROSS DESCRIPTION r1agkSXfAZUtpSFqUnQpJGV (test code = 3366) dUCUhz3exTAQxnESdZaHdNn NcZnRuYmpcdWMxXGRlZmYwe 2ayu372oEFum7wtUVBxRiR6 gKFoBAXiyCMsO962t0thq8d rioGnzME4DVMpPAW8XDdtcy PpraB8MThgiCAjZiX3DJnmi wGwYUrhqkNkywAgNhz6YRQc K790PGY9tRoep9baAFE2NXB vUGNtHoIhZz2amJUwJ626CC WfKYUOADQpoOm5ZUXkmlYso bSziKZVk221Y363c4feVZJu smYcmLgNyujeq1jlJ380QID hcGVydzEyMjQwXHBhcGVyaD D2ALPdZR9cgcwbFsXgCE8sx jycSsJtOE9iqwq2PiWdUU1r cmdiNzIwXGhlYWRlcnkwXGZ cb3LbruitZR6zJ1Rtg2W7nA 9maXRcZGVmdGFiNzIwXGZvc r6alQPoAZdsr8YvRAW1yxJ1 cWNflRUvASDxYB26Awzse4Z mQifrXGB8AHCzurYns3Xls4 srRiJoxnBmY4vsB1OdKYUlF BBiZAKmQaWmpwZks1Voc4Wi ySNzlSm1f7xwUYTlXRBwqCz tq2ftSXO8QTGhS6Y0lTEhp0 ynZSriVKKnuJE6lfquJBhcI BPpqrQ8mosyGSgnYDSwzLH5 igryCJyzXTEsWzE5raptZLd sVFTdBXZ1RUfoa867CWP1JU xzYmtwYWdlXHBnbmNvbnRcc GduZGVjXHBsYWluXHBsYWlu XGYwXGZzMjRccWxccGxhaW5 mQaCtQoWpKTekDU0nPIDhK5 ufgNYsGZWnDBUfL4roPiEjt K3xtDzcASdgfzYfMTWaJZKy Z2YvveUiKPFpQPTgEOifKnR sXAUjk8k4hZO7hFPtyKT5sC QdbEybEhUiVM3peAEjMF3zR ObfNNfxrqMig8GaOX68wCWm ciBhbmQgInRvZSwgcmlnaHQ uMWowECNgSSaqSFD2mUW3eI Y6SUKxoW5wOO1eLNG2xxczM tG5VqBiK54ahU8xbOMuY8Kw IGFuZCAzIGNtIGluIGRpYW1 ldGVyLiAgVGhlcmUgaXMgYS Plf61uWPj3WNX9vSIeiBWaV EZ8eNvkm0SuSFHePHLuwo71 PAids2ykrB7aoImhZtWdZJg qMHxrxSWvJBtri6CoEhGfQR WjjBLwhBJ1fhSoSXFblHDbL ewchDYsBwDcP47bJ5KrV3Un gq75awZ2oGEtsnDfv3QdzMY rPVOuIqWohTSnoy3mRDMnSA Tms3piIJ1lvlmwusHyqeZoH TMxkOEgmg9sLOXwKCGxbKYq kvRqY4CpTKSfWWHdq82vJoT wUUhbjbXfxZSzXK1cGTA4xv ImwkQsGJ5qsL44FS1yYUBlp H8bFCpfB10za9SvkKporzR2 jWNeKENniFUiLUxuJBO4yrS akR2gwT0kKKQxJGD6rTEsen 6oXEVyYEA2rlEezmi6eT9sP GJvbmUgaXMgcmVkIGFuZCBo IN6gpmFhYGgpPzdoEH5dULD 3zYBxJDZguQb9NSkjjEawHQ BgC1JhqCEgFFChLYZuFnFwF hCfseAbRB48TBNukvLhi1Za vVstlqUeIHRhJWK3Kf5yxCN ySN9byIXdNAOemrBAIJE6iQ 4wYLMePGQ4PSOwcqHKLWvnD KlvDVZqmG0fbMhyAHHyr5Ua b0Iqx0ppbqNkKWAukB3dDVG zpSWdVGGgLFUlJL5liRZ7jK SaUIIlP3Mqk91sETntyVncu Z2fIOJqvXhxWgYru42dBNRx g0ubg9xkvwuxXWPcECwtkKP xF2U3jV6kQBXavjDEDmxtAP lbFIS0xDM0bIJ6GEZpET2bM X2mVFHpmiMbYXHiQOPzK8Cn APIxjJynz2acCiUiYGSpaUT jKkbkXFAon42dsHGmSMPbih DVpHSjr5IcCStoYWJhEJBTC XCdMQFBKUeFK6KPSKHuGBEk cn0= MICROSCOPIC j7oyoFVxQMCnvND3VlZiWYR DESCRIPTION (test code id8yvz0SubEMauXWoBMuymG = 3371) UjqkXsqr82jUF3qQ58OO4aB SHgUpX0MNEdfbF7Hkb4SPVf ZXCcdQScE799v0xka9pfoeX bjXW6kPalFRUmHDKoNYiyYA JcOaQwUBAGQd9GWEKFWZFti n0= [facility] [id number] 16:35:00Surgical Pathology Report Case: [id number] Authorizing Provider: Aleksandr Duong DPM Collected: 07/02/2020 01:10 PM [facility]ing [facility] Received: 07/02/2020 01:28 PM SERVICES Pathologist: Nadine Butler MD Specimen: Toe,Right, right great toe FOOT, RIGHT HALLUX, AMPUTATION:- GANGRENE INVOLVING SKIN AND SOFT TISSUE- BONE WITH INTER-TRABECULAR NECROSIS- SOFT TISSUE AT THE MARGIN INVOLVED BY INFLAMMATORY PROCESS- ARTICULAR CARTILAGE AT THE MARGIN, UNREMARKABLE- NEGATIVE FOR MALIGNANCY Signing Pathologist Direct Phone Line: [phone] signed by Nadine Butler MD on 07/30/2020 at 4:35 [id number]; [id number] Morejon. Received fresh labeled with the patient's name, medical record number and "toe, right" is a disarticulated toe measuring 7.3 cm in length and 3 cm in diameter. There is a loosely attached, thickened, moralse-yellow unguis. The lateral surface displays a 2 x 1.7 x 0.2 cm gangrenous ulcer located 0.7 cm from the skin margin and 4 cm from the disarticulated bone. There is an abundant amount of skin discoloration with slippage surrounding the ulcer. The underlying bone is red and hemorrhagic, and cuts easily with a scalpel blade. Shactor sections are submitted.Section code:A1: Ulcer to the closest skin margin (blue), perpendicular sections with underlying bone, following decalcificationA2: Disarticulated end of bone, en face, following decalcificationChelsea BRIANNA Medina PA ([facility])cmPERFORMEDCARDIAC CATH REPORT - [id number] 10:37:11Ordered by an unspecified provider.[facility]-Glucose [id number] 11:15:00 Test Item Value Reference Range Interpretation Comments POC-Glucose Meter (test 283 mg/dL 70-110 H : TE STED AT [facility] code = 1538) [address] [facility], 770 30: Administrative Processor/Techni heather ID = [id number] for LEIJA, SERKAL EM Lab Interpretation (test Abnormal code = 50760-8) [facility]-GLUCOSE [id number] 11:15:00 Test Item Value Reference Range Interpretation Comments POC-GLUCOSE METER 283 mg/dL 70-110 H : TESTED A T [facility] 6720 (BEAKER) (test code = SHRAVAN Raymond [facility], 1538) [address]: Administrative Processor/Techni heather ID = [id number] for IB RAHIM, SERKALEM CBC with platelet count + automated [id number] 08:27:00 Test Item Value Reference Range Interpretation Comments WBC (test code = 6690-2) 15.3 See_Comment H [A utomated message] The system [employer] generated this result transmitted ref erence range: 3.5 - 10 .5 K/L. The refe rence range was not u sed to interpret this result as normal/abnor mal. RBC (test code = 789-8) 2.98 See_Comment L [Au tomated message] The system [employer] generated this result transmitted ref erence range: 4.63 - 6 .08 M/L. The refe rence range was not u sed to interpret this result as normal/abnor mal. MCHC (test code = 786-4) 31.1 See_Comment L [A utomated message] The system [employer] generated this result transmitted ref erence range: [...] See_Comment [Aut omated message] 777-3) The system [employer] generated this result transmitted ref erence range: 150 - 45 0 K/CU MM. The referen ce range was not u sed to interpret this result as normal/abnor mal. MPV (test code = 9.2 fL 9.4-12.4 L 48404-3) nRBC (test code = 413) 0 See_Comment [Aut omated message] The system [employer] generated this result transmitted ref erence range: 0 - 0 /1 00 WBC. The refere nce range was not u sed to interpret this result as normal/abnor mal. Lab Interpretation (test Abnormal code = 91956-8) [facility] [id number] 08:27:00 Test Item Value Reference Range Interpretation [...] = 3438) CACHORRO (test code = CACHORRO) Administrative Processor ID - Irena Chen comments: Slide comments: Lab Interpretation (test Abnormal code = 73189-1) [facility] W/PLT COUNT & AUTO [id number] 08:27:00 Test Item Value Reference Range Interpretation [...] CONCENTRATION Adequate (CELLAVISION)(BEAKER) (test code = 3438) Administrative Processor ID - Irena Chen comments: Slide comments:POCT-GLUCOSE METER 2020-07-05 08:06:00 Test Item Value Reference Range Interpretation Comments POC-GLUCOSE METER 149 mg/dL 70-110 H : TESTED A T [facility] 6720 (BEAKER) (test code = SHRAVAN [place], 1538) [address]: Administrative Processor/Techni heather ID = [id number] for LIN CERVANTES Basic Metabolic [id number] 04:49:00 Test Item Value Reference Range Interpretation Comments Sodium (test code = 138 meq/L 777-721 4214-2) Potassium (test code = 4.0 meq/L 3.5-5.1 2823-3) Chloride (test code = 107 meq/L 98-107 2075-0) CO2 (test code = 21 meq/L 22-29 L 2028-9) BUN (test code = 18 mg/dL 7-21 3094-0) Creatinine (test code 1.38 mg/dL 0.57-1.25 H = 2160-0) Glucose (test code = 161 mg/dL 70-105 H 2345-7) Calcium (test code = 8.8 mg/dL 8.4-10.2 77886-1) EGFR (test code = 50 mL/min/1.73 [place] [address]-9) NOT ACCURATE CREATININE CLEARANCE IN PREDICTING GLOMERULAR FILTRATION RATE . ESTIMATED GFR I S NOT APPLICABLE FOR DIALYSIS PATIENTS. CACHORRO (test code = CACHORRO) Administrative Processor ID - HIWOT Deras Lab Interpretation Abnormal (test code = 34177-3) [facility] Women[facility] METABOLIC [id number] 04:49:00 Test Item Value Reference Range Interpretation [...] S NOT APPLICABLE FOR DIALYSIS PATIEN TS. Administrative Processor ID - PIAYA LPOCT-GLUCOSE [id number] 21:36:00 Test Item Value Reference Range Interpretation Comments POC-GLUCOSE METER 167 mg/dL 70-110 H : TESTED A T [facility] 67 (BEBANNER) (test code = [facility], 1538) [address]: Administrative Processor/Techni heather ID = [id number] for Raghu barone (pca2)[place] POCT-GLUCOSE [id number] 17:51:00 Test Item Value Reference Range Interpretation Comments POC-GLUCOSE METER 156 mg/dL 70-110 H : Notified RN/MD: ([facility]) (test code = TESTED AT [facility] 6720 1538) [facility], [address]: Administrative Processor/Techni heather ID = [id number] for Hank Wattsah (CELLAVISION MANUAL DIFF)2020-07-04 15:55:00 Test Item Value [...] CONCENTRATION Adequate (CELLAVISION)(BEAKER) (test code = 3438) Administrative Processor ID - Juana Astudillo comments: Slide comments:BASIC [...] S NOT APPLICABLE FOR DIALYSIS PATIEN TS. Administrative Processor ID - DBCBC W/PLT COUNT & AUTO [id number] 15:17:00 Test Item Value Reference Range Interpretation [...] WBC 0-0 (BEAKER) (test code = 413) [id number] 12:36:00 Test Item Value Reference Range Interpretation Comments PTT (test code = 102.6 See_Comment H [Automated message] 13313-9) The system [employer] generated this result transmitted ref erence range: 22.5 - 3 6.0 seconds. The reference range was not used to int erpret this result as normal/abnormal . Lab Interpretation (test Abnormal code = 01944-5) [id number] 12:36:00 Test Item Value Reference Range Interpretation Comments PARTIAL THROMBOPLASTIN TIME 102.6 seconds 22.5-36.0 H (BEAKER) (test code = 760) POCT-GLUCOSE [id number] 12:25:00 Test Item Value Reference Range Interpretation Comments POC-GLUCOSE METER 212 mg/dL 70-110 H : TESTED A T [facility] 6720 (BEAKER) (test code = [facility], 1538) [address]: Administrative Processor/Techni heather ID = [id number] for Marj Watts POCT-GLUCOSE [id number] 07:39:00 Test Item Value Reference Range Interpretation Comments POC-GLUCOSE METER 162 mg/dL 70-110 H : TESTED A T [facility] 6720 (BEAKER) (test code = [facility], 1538) [address]: Administrative Processor/Techni heather ID = [id number] for EMANI DELGADO [id number] 05:06:00 Test Item Value Reference Range Interpretation Comments PARTIAL THROMBOPLASTIN TIME 64.8 seconds 22.5-36.0 H (BEAKER) (test code = 760) [id number] 23:50:00 Test Item Value Reference Range Interpretation Comments PARTIAL THROMBOPLASTIN TIME 59.1 seconds 22.5-36.0 H (BEAKER) (test code = 760) POCT-GLUCOSE [id number] 21:25:00 Test Item Value Reference Range Interpretation Comments POC-GLUCOSE METER 156 mg/dL 70-110 H : TESTED A T [facility] 6720 (BEAKER) (test code = [facility], 153) [address]: Administrative Processor/Techni heather ID = [id number] for ANGIE LEVON DE LA GARZA POCT-GLUCOSE [id number] 17:25:00 Test Item Value Reference Range Interpretation Comments POC-GLUCOSE METER 162 mg/dL 70-110 H : Notified RN/MD: ([facility]) (test code = TESTED AT [facility] 6720 1538) [facility], [address]: Administrative Processor/Techni heather ID = [id number] for Marj Watts [id number] 15:41:00 Test Item Value Reference Range Interpretation Comments PARTIAL THROMBOPLASTIN TIME 46.0 seconds 22.5-36.0 H ([facility]) (test code = 760) [id number] 15:13:00 Test Item Value Reference Range Interpretation Comments PARTIAL THROMBOPLASTIN TIME > seconds 22.5-36.0 HH ([facility]) (test code = 760) POCT-GLUCOSE [id number] 12:24:00 Test Item Value Reference Range Interpretation Comments POC-GLUCOSE METER 166 mg/dL 70-110 H : TESTED A T [facility] 6720 ([facility]) (test code = SHRAVAN Raymond [facility], 1538) [address]: Administrative Processor/Techni heather ID = [id number] for LEVON LEE SARS-CoV2/RT-PCR (Asymptomatic ONLY)2020-07-03 08:16:00 Test Item Value Reference Range Interpretation Comments SARS-COV2/RT-PCR Negative Not Detected, (test code = Negative, See 45096-4) external report for linked test SARS-COV-2 [facility] PERFORM[facility] (test code = 09456-7) CACHORRO (test code = Negative results do [...] of the Act. Fact Sheet for Healthcare Providers:https://www.[employer]/Documents/Xper t%20Xpress%20SARS%20CoV- 2/Fact%20Sheets/302-3802 %24QCXG-FCV-8%20HEALTHCA RE%20PROVIDERS%20FACT%20 SHEET.pdf Fact Sheet for Healthcare Patients:https://www.[employer]/Documents/Xpert %20Xpress%20SARS%20CoV-2 /Fact%20Sheets/302-3801% 74WCOZ-PIK-1%20PATIENT%2 0FACT%20SHEET.pdf Performing Laboratory:[facility] [place] [address] [facility])2020-07-03 08:16:00 Test Item Value Reference Range Interpretation Comments SARS-COV2/RT-PCR (test code Negative Not Detected, Negative, = 1815743) See external report for linked test SARS-COV-2 PERFORMING LAB [facility] (test code = 5992236) Negative results do not preclude SARS-CoV-2 infection [...] of the Act.Fact Sheet for Healthcare Pro viders:https://www.[employer]bounce.io/Documents/Xpert%20Xpress%20SARS%20CoV-2/Fact%20Sh eets/302-3802%21WTLJ-GWR-7%20HEALTHCARE%20PROVIDERS%20FACT%20SHEET.pdfFact Sheet for Healthcare Patients:https://www.[employer]bounce.io/Documents/Xpert%20Xpress%20SARS%20CoV-2/Fact%20Sheets/302-3801%20SARS-COV -2%20PATIENT%20FACT%20SHEET.pdfPerforming Laboratory:[place] [address], [place] [address]PRJV-PMUBGUJ [id number] 08:12:00 Test Item Value Reference Range Interpretation Comments POC-GLUCOSE METER 152 mg/dL 70-110 H : TESTED A T [facility] 6720 (BEAKER) (test code = SHRAVAN Raymond [facility], 1538) [address]: Administrative Processor/Techni heather ID = [id number] for LEVON LEE BASIC METABOLIC [id number] 05:19:00 Test Item Value Reference Range Interpretation [...] S NOT APPLICABLE FOR DIALYSIS PATIEN TS. Administrative Processor ID - TUSHAR [id number] 04:52:00 Test Item Value Reference Range Interpretation Comments PARTIAL THROMBOPLASTIN TIME 37.1 seconds 22.5-36.0 H (BEAKER) (test code = 760) CBC (Hemogram only)2020-07-03 04:41:00 Test Item Value Reference Range Interpretation Comments WBC (test code = 6690-2) 14.4 See_Comment H [A utomated message] The system Hubs1 generated this result transmitted ref erence range: 3.5 - 10 .5 K/L. The refe rence range was not u sed to interpret this result as normal/abnor mal. RBC (test code = 789-8) 2.85 See_Comment L [Au tomated message] The system Hubs1 generated this result transmitted ref erence range: 4.63 - 6 .08 M/L. The refe rence range was not u sed to interpret this result as normal/abnor mal. MCHC (test code = 786-4) 31.6 See_Comment L [A utomated message] The system Hubs1 generated this result transmitted ref erence range: [...] See_Comment [Aut omated message] 777-3) The system Hubs1 generated this result transmitted ref erence range: 150 - 45 0 K/CU MM. The referen ce range was not u sed to interpret this result as normal/abnor mal. MPV (test code = 9.0 fL 9.4-12.4 L 33307-5) nRBC (test code = 413) 0 See_Comment [Aut omated message] The system Hubs1 generated this result transmitted ref erence range: 0 - 0 /1 00 WBC. The refere nce range was not u sed to interpret this result as normal/abnor mal. Lab Interpretation (test Abnormal code = 09361-3) [facility] (HEMOGRAM ONLY)2020-07-03 04:41:00 Test Item Value Reference [...] 0-0 (BEAKER) (test code = 413) SARS-COV2/RT-PCR ([facility])2020-07-02 20:04:00 Test Item Value Reference Range Interpretation Comments SARS-COV2/RT-PCR (test Negative Not Detected, Negative, code = 9784344) See external report for linked test SARS-COV-2 PERFORMING LAB [facility] (test code = 0119146) Negative result for this test determines that [...] Pacheco SARS-CoV-2 assay.Fact Sheet for Healthcare Providers:https://www.molecular.pacheco/libby/ VL_BALA-UbZ-6_JZU_Jabl_Ibwiv_91-805668.pdfFact Sheet for Healthcare Patients:https://www.[employer].ab dario/libby/AZ_YFSU-BtL-0_Smolbbm_Wsui_Xehkd_RH_01-412883O1.pdfPerforming Laboratory:[facility] [place] [address] POCT-GLUCOSE [id number] 17:56:00 Test Item Value Reference Range Interpretation Comments POC-GLUCOSE METER 155 mg/dL 70-110 H : TESTED A T [facility] 6720 (ERIK) (test code = YOSELINBEVERLY Raymond [facility], 1538) [address]: Administrative Processor/Techni heather ID = [id number] for Ra chapa Jazmin POCT-GLUCOSE [id number] 17:55:00 Test Item Value Reference Range Interpretation Comments POC-GLUCOSE METER 166 mg/dL 70-110 H : TESTED A T [facility] 6720 (BEAKER) (test code = [place], 1538) [address]: Administrative Processor/Techni heather ID = [id number] for Jazmin Hu CBC (HEMOGRAM ONLY)2020-07-02 17:45:00 [...] (BEAKER) (test code = 413) Vancomycin level, [id number] 16:47:00 Test Item Value Reference Range Interpretation Comments Vancomycin Rm (test 9.9 ug/mL code = 54003-2) CACHORRO (test code = Reference Range: No CACHORRO) NormalsOperator ID - BS [facility] for WomenVancedar city hospitalycin level, [id number] 16:47:00 Test Item Value Reference Range Interpretation Comments Vancomycin Rm (test 9.9 ug/mL code = 99046-9) CACHORRO (test code = Reference Range: No CACHORRO) NormalsOperator ID - BS [facility] for WomenVANSAMARITAN HOSPITALYCIN LEVEL, [id number] 16:47:00 Test Item Value Reference Range Interpretation Comments VANCOMYCIN RANDOM (BEAKER) (test 9.9 ug/mL code = 523) Reference Range: No NormalsOperator ID - BSPOCT-GLUCOSE [id number] 14:40:00 Test Item Value Reference Range Interpretation Comments POC-GLUCOSE METER 167 mg/dL 70-110 H : TESTED A T [facility] 6720 (BEAKER) (test code = [place], 1538) [address]: Administrative Processor/Techni heather ID = [id number] for ANGIE WHEELER RK ECG 12 [id number] 13:53:08Interface, External Ris In - 07/02/2020 1:53 PM CDTVentricular Rate 70 BPMAtrial Rate 76 BPMQRS Duration 114 msQ-T Interval 416 msQTC Calculation(Bazett) 449 msR [place] 2 degreesT [place] -[address] and T wave abnormalityAbnormal ECGWhen compared with ECG of 30-JAN-2017 01:13,ST less depressed in Anterior leadsT wave inversion no longer evident in Anterolateral leadsConfirmed by MD Morocho Roberto ([id number]) on 07/02/2020 1:53:05 [facility] W/PLT COUNT & AUTO [id number] 09:24:00 Test Item Value Reference Range Interpretation [...] 313) LARGE PLT(BEAKER) (test code = Present 6) HYPOCHROMIA (BEAKER) (test code = 1+ few 963) ANISOCYTOSIS (BEAKER) (test code = 1+ few 961) POIKILOCYTES (BEAKER) (test code = 1+ few 966) SPHEROCYTES (BEAKER) (test code = 1+ few 768) LENORE CELLS (BEAKER) (test code = 1+ few 474) ARTIFACT (CELLAVISION)(BEAKER) Present (test code = 3432) PLATELET CONCENTRATION Adequate (CELLAVISION)(BEAKER) (test code = 3438) Administrative Processor ID - Niurka Mahajan comments: Slide comments:POCT-GLUCOSE METER 2020-07-02 08:29:00 Test Item Value Reference Range Interpretation Comments POC-GLUCOSE METER 162 mg/dL 70-110 H : TESTED A T [facility] 6720 (BEAKER) (test code = [place], 1538) [address]: Administrative Processor/Techni heather ID = [id number] for Jazmin Hu [id number] 05:08:00 Test Item Value Reference Range Interpretation Comments PARTIAL THROMBOPLASTIN TIME 65.4 seconds 22.5-36.0 H (BEAKER) (test code = 760) [id number] 03:17:00 Test Item Value Reference Range Interpretation Comments PARTIAL THROMBOPLASTIN TIME 128.2 seconds 22.5-36.0 H (BEAKER) (test code = 760) BASIC METABOLIC [id number] 03:15:00 Test Item Value Reference Range Interpretation [...] S NOT APPLICABLE FOR DIALYSIS PATIEN TS. Administrative Processor ID - SARBJIT MPOCT-GLUCOSE [id number] 00:03:00 Test Item Value Reference Range Interpretation Comments POC-GLUCOSE METER 183 mg/dL 70-110 H : TESTED A T [facility] 6720 (BEAKER) (test code = [facility], 1538) [address]: Administrative Processor/Techni heather ID = [id number] for Herb Giles [id number] 18:14:00 Test Item Value Reference Range Interpretation Comments PARTIAL THROMBOPLASTIN TIME 71.0 seconds 22.5-36.0 H (BEAKER) (test code = 760) POCT-GLUCOSE [id number] 17:03:00 Test Item Value Reference Range Interpretation Comments POC-GLUCOSE METER 259 mg/dL 70-110 H : TESTED A T [facility] 6720 (BEAKER) (test code = [facility], 1538) [address]: Administrative Processor/Techni heather ID = [id number] for MALIHA HANNAH [id number] 15:30:00 Test Item Value Reference Range Interpretation Comments PARTIAL THROMBOPLASTIN TIME > seconds 22.5-36.0 HH (BEAKER) (test code = 760) Blood Culture - Routine (Left Venipuncture)2020-07-01 14:01:00 Test Item Value Reference Range Interpretation Comments Result (test code = No growth in 5 days 6463-4) [facility] WomenBlood Culture - Routine (Left Venipuncture)2020-07-01 14:01:00 Test Item Value Reference Range Interpretation Comments Result (test code = No growth in 5 days 6463-4) [facility] WomenBLOOD [id number] 14:01:00 Test Item Value Reference Range Interpretation Comments CULTURE (BEAKER) (test No growth in 5 days code = 1095) BLOOD [id number] 14:01:00 Test Item Value Reference Range Interpretation Comments CULTURE (BEAKER) (test No growth in 5 days code = 1095) BLOOD [id number] 14:01:00 Test Item Value Reference Range Interpretation Comments CULTURE (BEAKER) (test No growth in 5 days code = 1095) POCT-GLUCOSE [id number] 12:17:00 Test Item Value Reference Range Interpretation Comments POC-GLUCOSE METER 225 mg/dL 70-110 H : TESTED Javi T [facility] 6720 (BEAKER) (test code = SHRAVAN [place], 1538) [address]: Administrative Processor/Techni heather ID = [id number] for AN MALIHA CARBALLO Hepatic function [id number] 10:07:00 Test Item Value Reference Range Interpretation Comments Protein, Total (test 7.0 See_Comment [Autom ated code = 2885-2) message] The system which generated this result transmit vy reference range : 6.0 - 8.3 gm/dL . The reference range was not u sed to interpret th is result as normal/abnormal . Albumin (test code = 3.2 g/dL 3.5-5 L 34278-1) Total Bilirubin (test 0.5 mg/dL 0.2-1.2 code = 1975-2) Bilirubin, Direct 0.3 mg/dL 0.1-0.5 (test code = 1968-7) Alkaline Phosphatase 110 U/L 40-150 (test code = 6768-6) AST (test code = 15 U/L 5-34 1920-8) ALT (test code = 10 U/L 6-55 1742-6) CACHORRO (test code = CACHORRO) Administrative Processor ID - NIURKA F Lab Interpretation Abnormal (test code = 00378-6) [facility] for WomenHEPATIC FUNCTION [id number] 10:07:00 Test Item Value Reference Range Interpretation [...] (test code = 10 U/L 6-55 347) Administrative Processor ID - NIURKA FCBC W/PLT COUNT & AUTO [id number] 09:53:00 Test Item Value Reference Range Interpretation [...] Adequate (CELLAVISION)(BEAKER) (test code = 3438) POCT-GLUCOSE [id number] 07:36:00 Test Item Value Reference Range Interpretation Comments POC-GLUCOSE METER 167 mg/dL 70-110 H : Notified RN/MD: (BEAKER) (test code = TESTED AT [facility] 5691 9588) [facility], [address]: Administrative Processor/Techni heather ID = [id number] for AN MALIHA CARBALLO BASIC METABOLIC [id number] 06:45:00 Test Item Value Reference Range Interpretation [...] S NOT APPLICABLE FOR DIALYSIS PATIEN TS. Administrative Processor ID - NIURKA FVANCOMYCIN LEVEL, [id number] 06:33:00 Test Item Value Reference Range Interpretation Comments VANCOMYCIN RANDOM (BEAKER) (test 18.8 ug/mL code = 523) Reference Range: No NormalsOperator ID - SARBJIT [id number] 06:18:00 Test Item Value Reference Range Interpretation Comments PARTIAL THROMBOPLASTIN TIME 39.9 seconds 22.5-36.0 H (BEAKER) (test code = 760) POCT-GLUCOSE [id number] 00:26:00 Test Item Value Reference Range Interpretation Comments POC-GLUCOSE METER 170 mg/dL 70-110 H : TESTED A T [facility] 6720 (BEAKER) (test code = [facility] [employer] [facility], 1538) [address]: Administrative Processor/Techni heather ID = [id number] for DYLAN OLSON [id number] 23:56:00 Test Item Value Reference Range Interpretation Comments PARTIAL THROMBOPLASTIN TIME 47.5 seconds 22.5-36.0 H (BEAKER) (test code = 760) [id number] 16:30:00 Test Item Value Reference Range Interpretation Comments PARTIAL THROMBOPLASTIN TIME 51.2 seconds 22.5-36.0 H (BEAKER) (test code = 760) [id number] 14:32:00 Test Item Value Reference Range Interpretation Comments PARTIAL THROMBOPLASTIN TIME 187.8 seconds 22.5-36.0 HH (BEAKER) (test code = 760) [id number] 13:55:00 Test Item Value Reference Range Interpretation Comments PARTIAL THROMBOPLASTIN TIME > seconds 22.5-36.0 HH (BEAKER) (test code = 760) POCT-GLUCOSE [id number] 12:13:00 Test Item Value Reference Range Interpretation Comments POC-GLUCOSE METER 207 mg/dL 70-110 H : TESTED A T [facility] 6720 (BEAKER) (test code = [facility], 1538) [address]: Administrative Processor/Techni heather ID = [id number] for LADARIUS HOWELL CBC W/PLT COUNT & AUTO [id number] 09:36:00 Test Item Value Reference Range Interpretation [...] CONCENTRATION Decreased (CELLAVISION)(BEAKER) (test code = 3438) Administrative Processor ID - Magi Esposito comments: Slide comments:POCT-GLUCOSE METER 2020-06-30 08:19:00 Test Item Value Reference Range Interpretation Comments POC-GLUCOSE METER 162 mg/dL 70-110 H : TESTED A T [facility] 6720 (BEAKER) (test code = [place], 1538) [address]: Administrative Processor/Techni heather ID = [id number] for EMANI DELGADO [id number] 07:46:00 Test Item Value Reference Range Interpretation Comments PARTIAL THROMBOPLASTIN TIME 76.8 seconds 22.5-36.0 H (BEAKER) (test code = 760) BASIC METABOLIC [id number] 07:03:00 Test Item Value Reference Range Interpretation [...] S NOT APPLICABLE FOR DIALYSIS PATIEN TS. Administrative Processor ID - SARBJIT MVANCOMYCIN LEVEL, [id number] 06:09:00 Test Item Value Reference Range Interpretation Comments VANCOMYCIN RANDOM (BEAKER) (test 25.1 ug/mL code = 523) Reference Range: No NormalsOperator ID - SARBJIT [id number] 00:42:00 Test Item Value Reference Range Interpretation Comments PARTIAL THROMBOPLASTIN TIME 68.8 seconds 22.5-36.0 H (BEAKER) (test code = 760) [id number] 22:14:00 Test Item Value Reference Range Interpretation Comments PARTIAL THROMBOPLASTIN TIME 124.8 seconds 22.5-36.0 H (BEAKER) (test code = 760) POCT-GLUCOSE [id number] 21:06:00 Test Item Value Reference Range Interpretation Comments POC-GLUCOSE METER 183 mg/dL 70-110 H : TESTED A T [facility] 6720 (BEAKER) (test code = SHRAV[place], 1538) [address]: Administrative Processor/Techni heather ID = [id number] for Penelope Smiht POCT-GLUCOSE [id number] 17:21:00 Test Item Value Reference Range Interpretation Comments POC-GLUCOSE METER 190 mg/dL 70-110 H : TESTED A T [facility] 6720 (BEAKER) (test code = [place] [place], 1538) [address]: Administrative Processor/Techni heather ID = [id number] for EMANI DELGADO [id number] 14:11:00 Test Item Value Reference Range Interpretation [...] 0-0 (BEAKER) (test code = 413) POCT-GLUCOSE [id number] 12:21:00 Test Item Value Reference Range Interpretation Comments POC-GLUCOSE METER 185 mg/dL 70-110 H : TESTED Javi T [facility] 6720 (BEAKER) (test code = [place], 1538) [address]: Administrative Processor/Techni heather ID = [id number] for EMANI DELGADO CBC W/PLT COUNT & AUTO [id number] 10:14:00 Test Item Value Reference Range Interpretation [...] CONCENTRATION Adequate (CELLAVISION)(BEAKER) (test code = 3438) Administrative Processor ID - Raven Ledesma comments: Slide comments:POCT-GLUCOSE METER 2020-06-29 08:10:00 Test Item Value Reference Range Interpretation Comments POC-GLUCOSE METER 148 mg/dL 70-110 H : TESTED A T [facility] 6720 (BEAKER) (test code = [place], 1538) [address]: Administrative Processor/Techni heather ID = [id number] for CA STRO, EMANI [id number] 07:22:00 Test Item Value Reference Range Interpretation Comments Magnesium (test code = 1.6 mg/dL 1.6-2.6 74237-6) CACHORRO (test code = CACHORRO) Administrative Processor ID - SARBJIT Molina Lab Interpretation (test Normal code = 28999-7) [facility] [id number] 07:22:00 Test Item Value Reference Range Interpretation Comments Magnesium (test code = 1.6 mg/dL 1.6-2.6 70972-9) CACHORRO (test code = CACHORRO) Administrative Processor ID Ventura Molina Lab Interpretation (test Normal code = 94232-4) [facility] WomenBASIC METABOLIC [id number] 07:22:00 Test Item Value Reference Range Interpretation [...] S NOT APPLICABLE FOR DIALYSIS PATIEN TS. Administrative Processor ID - SARBJIT [id number] 07:22:00 Test Item Value Reference Range Interpretation Comments MAGNESIUM (BEAKER) (test code = 1.6 mg/dL 1.6-2.6 627) Administrative Processor ID - SARBJIT [id number] 07:08:00 Test Item Value Reference Range Interpretation Comments PARTIAL THROMBOPLASTIN TIME 71.2 seconds 22.5-36.0 H (BEAKER) (test code = 760) [id number] 00:38:00 Test Item Value Reference Range Interpretation Comments PARTIAL THROMBOPLASTIN TIME 36.4 seconds 22.5-36.0 H (BEAKER) (test code = 760) [id number] 22:00:00 Test Item Value Reference Range Interpretation Comments PARTIAL THROMBOPLASTIN TIME 122.0 seconds 22.5-36.0 H (ERIK) (test code = 760) POCT-GLUCOSE [id number] 21:36:00 Test Item Value Reference Range Interpretation Comments POC-GLUCOSE METER 153 mg/dL 70-110 H : TESTED A T [facility] 6720 (ERIK) (test code = SHRAVAN Raymond [facility], 1538) [address]: Administrative Processor/Techni heather ID = [id number] for PIPPA GUERIN Vancomycin level, [id number] 21:03:00 Test Item Value Reference Range Interpretation Comments Vancomycin Tr (test code = 26.1 ug/mL 10-20 H 4092-3) CACHORRO (test code = CACHORRO) Administrative Processor ID - DB Lab Interpretation (test Abnormal code = 81339-3) [facility] WomenVancomycin level, [id number] 21:03:00 Test Item Value Reference Range Interpretation Comments Vancomycin Tr (test code = 26.1 ug/mL 10.0-20.0 H 4092-3) CACHORRO (test code = CACHORRO) Administrative Processor ID - DB Lab Interpretation (test Abnormal code = 21713-2) [facility] WomenVANCOMYCIN LEVEL, [id number] 21:03:00 Test Item Value Reference Range Interpretation Comments VANCOMYCIN TROUGH (ZHANGAKER) (test 26.1 ug/mL 10.0-20.0 H code = 522) Administrative Processor ID - DBPOCT-GLUCOSE [id number] 17:48:00 Test Item Value Reference Range Interpretation Comments POC-GLUCOSE METER 129 mg/dL 70-110 H : Notified RN/MD: (ERIK) (test code = TESTED AT [facility] 6720 1538) [place] [facility], [address]: Administrative Processor/Techni heather ID = [id number] for MALIHA HANNAH [id number] 14:09:00 Test Item Value Reference Range Interpretation Comments PARTIAL THROMBOPLASTIN TIME 41.5 seconds 22.5-36.0 H (ERIK) (test code = 760) POCT-GLUCOSE [id number] 11:54:00 Test Item Value Reference Range Interpretation Comments POC-GLUCOSE METER 130 mg/dL 70-110 H : Notified RN/MD: (ERIK) (test code = TESTED AT [place] [address] 1538) [facility], [address]: Administrative Processor/Techni heather ID = [id number] for AN MALIHA CARBALLO POCT-GLUCOSE [id number] 07:53:00 Test Item Value Reference Range Interpretation Comments POC-GLUCOSE METER 152 mg/dL 70-110 H : Notified RN/: (ERIK) (test code = TESTED AT [place] [address] 1538) [facility], [address]: Administrative Processor/Techni heather ID = [id number] for AN MALIHA CARBALLO CBC W/PLT COUNT & AUTO [id number] 07:41:00 Test Item Value Reference Range Interpretation [...] CONCENTRATION Adequate (CELLAVISION)(BEAKER) (test code = 3438) Administrative Processor ID - Magi Esposito comments: Slide comments:BASIC [...] S NOT APPLICABLE FOR DIALYSIS PATIEN TS. Administrative Processor ID - [id number] 05:08:00 Test Item Value Reference Range Interpretation Comments PARTIAL THROMBOPLASTIN TIME 38.2 seconds 22.5-36.0 H (AKER) (test code = 760) POCT-GLUCOSE [id number] 23:23:00 Test Item Value Reference Range Interpretation Comments POC-GLUCOSE METER 191 mg/dL 70-110 H : TESTED A T [facility] 6720 ([facility]) (test code = [facility], 1538) [address]: Administrative Processor/Techni heather ID = [id number] for ELI DOMINGO JONATAN [id number] 21:47:00 Test Item Value Reference Range Interpretation Comments PARTIAL THROMBOPLASTIN TIME 44.5 seconds 22.5-36.0 H ([facility]) (test code = 760) [id number] 18:57:00 Test Item Value Reference Range Interpretation Comments PARTIAL THROMBOPLASTIN TIME 129.6 seconds 22.5-36.0 H ([facility]) (test code = 760) POCT-GLUCOSE [id number] 18:19:00 Test Item Value Reference Range Interpretation Comments POC-GLUCOSE METER 173 mg/dL 70-110 H : Notified RN/MD: ([facility]) (test code = TESTED AT [facility] 6720 1538) [facility], [address]: Administrative Processor/Techni heather ID = [id number] for MALIHA HANNAH Arterial doppler legs [id number] 13:46:31Ejection [facility] ECHO HEARTLAB MKCKESSON CPACSRight Impression1. The common [...] + + + + + + !Prox JOWL TRIMMER ! !42.2 ! ! ! !11.8 ! ! ! + + + + + + + + + + !Mid JOWL TRIMMER ! !77.8 ! ! ! + + + + + + !Dist JOWL TRIMMER ! !44.8 ! ! ! +-------- + [...] of Study 06/26/2020 Age 75 Visit Number [id number] Gender Male Accession Number [id number] Date of 1945 Referring Suri Spencer Room Number 2677 Physician MD Fela Polysomnograph Tech Rajinder Moreno Interpreting Madelyn Redmond Physician ProcedureType of Study: Extremities Arteries: Lower [...] + + + + + + !Prox JOWL TRIMMER ! !42.2 ! ! ! !11.8 ! ! ! + + +------- + + + + + + + !Mid JOWL TRIMMER ! !77.8 ! ! ! + + + + + + !Dist JOWL TRIMMER ! !44.8 ! ! ! + + + + + + !Prox KYLEIGH ! !41 ! ! ! + + + + + + !Mid KYLEIGH ! !16 ! ! ! + + + + + + !Dist Peroneal ! !20.2 ! ! ! + + + -------+ + +[facility] POCT-GLUCOSE [id number] 12:23:00 Test Item Value Reference Range Interpretation Comments POC-GLUCOSE METER 158 mg/dL 70-110 H : TESTED Javi Arizmendi [facility] 6720 (BEAKER) (test code = [place], 1538) [address]: Administrative Processor/Techni heather ID = [id number] for MALIHA HANNAH [id number] 12:15:00 Test Item Value Reference Range Interpretation Comments PARTIAL THROMBOPLASTIN TIME 49.5 seconds 22.5-36.0 H (BEAKER) (test code = 760) CBC W/PLT COUNT & AUTO [id number] 09:10:00 Test Item Value Reference Range Interpretation [...] CONCENTRATION Adequate (CELLAVISION)(BEAKER) (test code = 3438) Administrative Processor ID - Raven Ledesma comments: Slide comments:POCT-GLUCOSE METER 2020-06-27 08:03:00 Test Item Value Reference Range Interpretation Comments POC-GLUCOSE METER 150 mg/dL 70-110 H : TESTED A T [facility] 6720 (BEAKER) (test code = [facility] [place], 1538) [address]: Administrative Processor/Techni heather ID = [id number] for AN MALIHA CARBALLO BASIC METABOLIC [id number] 06:39:00 Test Item Value Reference Range Interpretation [...] S NOT APPLICABLE FOR DIALYSIS PATIEN TS. Administrative Processor ID - HIWOT [id number] 06:02:00 Test Item Value Reference Range Interpretation Comments PARTIAL THROMBOPLASTIN TIME 77.3 seconds 22.5-36.0 H (BEAKER) (test code = 760) [id number] 23:03:00 Test Item Value Reference Range Interpretation Comments PARTIAL THROMBOPLASTIN TIME 54.9 seconds 22.5-36.0 H (BEAKER) (test code = 760) POCT-GLUCOSE [id number] 17:54:00 Test Item Value Reference Range Interpretation Comments POC-GLUCOSE METER 139 mg/dL 70-110 H : TESTED A T [facility] 6720 (BEAKER) (test code = [facility] Mandi [facility], 1538) [address]: Administrative Processor/Techni heather ID = [id number] for AN MALIHA CARBALLO [id number] 15:39:00 Test Item Value Reference Range Interpretation [...] 0-0 (BEAKER) (test code = 413) POCT-GLUCOSE [id number] 12:48:00 Test Item Value Reference Range Interpretation Comments POC-GLUCOSE METER 100 mg/dL 70-110 : TESTED A T [facility] 6720 (BEAKER) (test code = SHRAVAN Raymond [facility], 1538) [address]: Administrative Processor/Techni heather ID = [id number] for AN MALIHA CARBALLO Venous doppler leg, [id number] 08:15:01[facility]ART[facility] MKCKESSON CPACSRight Impression1. There is [...] DVT Study Demographics Patient Name LEVI DYER KRYSTA Date of Study 06/25/2020 Age 75 Visit Number [id number] Gender Male Accession Number [id number] Date of 1945 Referring Suri Spencer Room Number ED21 Physician MD Fela Polysomnograph Tech Rajinder Moreno Interpreting Madelyn Redmond Physician ProcedureType of Study: Veins: Lower Extremities DVT Study, VENOUS DOPPLER LEG, RIGHT. Indications for Study:Leg pain and Leg swelling.Patient Status:STAT.Study Location:[facility].Technical Quality:Technically Difficult. - Results were reported to: [...] in cm/s ; Diameters are [facility], [id number] 08:15:01Ejection FractionSLEH ECHO HEARTLAB MKCKESSON CPACSCHI [facility] HospitalHemoglobin [id number] 08:11:00 Test Item Value Reference Range Interpretation Comments Hemoglobin A1C (test code = 4548-4) 7.2 % 4.3-6.1 H Lab Interpretation (test code = Abnormal 63742-9) [facility] [id number] 08:11:00 Test Item Value Reference Range Interpretation Comments Hemoglobin A1C (test code = 4548-4) 7.2 % 4.3-6.1 H Lab Interpretation (test code = Abnormal 82271-3) [facility] WomenHEMOGLOBIN [id number] 08:11:00 Test Item Value Reference Range Interpretation Comments HEMOGLOBIN A1C (BEAKER) (test code = 7.2 % 4.3-6.1 H 368) CBC W/PLT COUNT & AUTO [id number] 07:57:00 Test Item Value Reference Range Interpretation [...] CONCENTRATION Adequate (CELLAVISION)(BEAKER) (test code = 3438) Administrative Processor ID - Raven BurkhalterUser comments: Slide comments:SARS-COV2/RT-PCR ([facility])2020-06-26 05:27:00 Test Item Value Reference Range Interpretation Comments SARS-COV2/RT-PCR (test Negative Not Detected, Negative, code = 4908952) See external report for linked test SARS-COV-2 PERFORMING LAB [facility] OLIVERIO (test code = 0650913) Negative result for this test determines that [...] the Pacheco SARS-CoV-2 assay.Fact Sheet for Healthcare Providers:https://www.[employer].pacheco/libby/ BR_TFKD-AxR-1_HNM_Xszd_Bomau_84-147392.pdfFact Sheet for Healthcare Patients:https://www.[employer].SmartAngels.fr dario/libby/XQ_WVVY-HxX-6_Zvwaqqw_Tgvl_Jykkh_MD_12-787108C5.pdfPerforming Laboratory:[facility] [place] [address] Vitamin B12 and [id number] 05:14:00 Test Item Value Reference Range Interpretation Comments Vitamin B12 (test 832 pg/mL 213-816 H code = 2132-9) Folate (test code = 17.50 ng/mL See_Comment [Automa vy 2284-8) message] The system which generated this result transmit vy reference range : >=7.00. The reference range was not used to interpret this result as normal/abnormal . CACHORRO (test code = CACHORRO) Administrative Processor ID - SARBJIT Molina Lab Interpretation Abnormal (test code = 36863-0) [facility] WomenVITAMIN B12 AND [id number] 05:14:00 Test Item Value Reference Range Interpretation Comments VITAMIN B12 832 pg/mL 213-816 H (BEAKER) (test code = 774) FOLATE (BEAKER) 17.50 ng/mL See_Comment [Automated message] (test code = 362) The system which generated this result transmitted ref erence range: >=7.00. The reference range was not used to interpr et this result as normal/abnormal . Administrative Processor ID - SARBJIT MC-Reactive [id number] 04:29:00 Test Item Value Reference Range Interpretation Comments CRP (test code = 676) 5.28 mg/dL 0-0.5 H CACHORRO (test code = CACHORRO) Administrative Processor ID - SARBJIT M Lab Interpretation (test Abnormal code = 10630-5) [facility] WomenC-REACTIVE [id number] 04:29:00 Test Item Value Reference Range Interpretation Comments C-REACTIVE PROTEIN (BEAKER) (test 5.28 mg/dL 0.00-0.50 H code = 676) Administrative Processor ID - SARBJIT MBASIC METABOLIC [id number] 04:29:00 Test Item Value Reference Range Interpretation [...] S NOT APPLICABLE FOR DIALYSIS PATIEN TS. Administrative Processor ID - SARBJIT MRAD, FOOT, MIN 3 VIEWS, [id number] 23:41:00Reason for exam:->LEG PAINReason for exam:->LEG SWELLING [facility]RYSTA : 1945 Sex: MFINAL [...] gas or radiographic evidence of osteomyelitis. Signed: Jtainder Hemphilleport Verified Date/Time: 06/25/2020 23:41:40 (CELLAVISION MANUAL DIFF)2020-06-25 [...] CONCENTRATION Adequate (CELLAVISION)(BEAKER) (test code = 3438) Administrative Processor ID - Anastasia comments: Slide comments:Lactic acid, venous 2020-06-25 19:36:00 Test Item Value Reference Range Interpretation Comments Lactate, Venous (test code = 0.52 mmol/L 0.5-2.2 2872) CACHORRO (test code = CACHORRO) Administrative Processor ID - BS Lab Interpretation (test Normal code = 68392-0) [facility] WomenL[facility] acid, [id number] 19:36:00 Test Item Value Reference Range Interpretation Comments Lactate, Venous (test code = 0.52 mmol/L 0.50-2.20 2872) CACHORRO (test code = CACHORRO) Administrative Processor ID - BS Lab Interpretation (test Normal code = 72893-9) [facility] WomenBASIC METABOLIC [id number] 19:36:00 Test Item Value Reference Range Interpretation [...] S NOT APPLICABLE FOR DIALYSIS PATIEN TS. Administrative Processor ID - BSC-REACTIVE [id number] 19:36:00 Test Item Value Reference Range Interpretation Comments C-REACTIVE PROTEIN (BEAKER) (test 4.79 mg/dL 0.00-0.50 H code = 676) Administrative Processor ID - BSLACTIC ACID, [id number] 19:36:00 Test Item Value Reference Range Interpretation Comments LACTATE BLOOD VENOUS (2) (BEAKER) 0.52 mmol/L 0.50-2.20 (test code = 2872) Administrative Processor ID - BSPT/[id number] 19:32:00 Test Item Value Reference Interpretation Comments Range Protime (test code = 16.8 See_Comment H [Autom ated 5902-2) message] The system which generated this result transmitted reference range : 11.9 - 14.2 seconds. The reference range was not used to interpret this result as normal/abnormal . INR (test code = 1.40 See_Comment [Automated 0671-6) message] The system which generated this result transmitted reference range : <=5.90. The reference range was not used to interpret this result as normal/abnormal . PTT (test code = 39.7 See_Comment H [Automated 21789-0) message] The system which generated this result [...] valves. Lab Interpretation Abnormal (test code = 99063-7) [facility] WomenPT/[id number] 19:32:00 Test Item Value Reference Interpretation Comments Range Protime (test code = 16.8 See_Comment H [Autom ated 5902-2) message] The system which generated this result transmitted reference range : 11.9 - 14.2 seconds. The reference range was not used to interpret this result as normal/abnormal . INR (test code = 1.40 See_Comment [Automated 6301-6) message] The system which generated this result transmitted reference range : <=5.90. The reference range was not used to interpret this result as normal/abnormal . PTT (test code = 39.7 See_Comment H [Automated 76789-2) message] The system which generated this result [...] valves. Lab Interpretation Abnormal (test code = 70241-1) [facility] WomenPT/[id number] 19:32:00 Test Item Value Reference Range Interpretation [...] mechanical heart valves.CBC W/PLT COUNT & AUTO [id number] 19:25:00 Test Item Value Reference Range Interpretation [...] 0-0 (BEAKER) (test code = 413) POCT-GLUCOSE [id number] 13:28:00 Test Item Value Reference Range Interpretation Comments POC-GLUCOSE METER 270 mg/dL 70-110 H TESTED AT [place] [address] ([facility]) (test code = SHRAVAN Raymond [place] 1538) [address] POCT-GLUCOSE [id number] 08:58:00 Test Item Value Reference Range Interpretation Comments POC-GLUCOSE METER 147 mg/dL 70-110 H TESTED AT [place] [address] ([facility]) (test code = SHRAVAN Raymond [facility] 1538) [address] CBC W/PLT COUNT & AUTO [id number] 08:53:00 Test Item Value Reference Range Interpretation [...] 0-1 PERCENT (BEAKER) (test code = 2801) [id number] 08:05:00 Test Item Value Reference Range Interpretation Comments MAGNESIUM (BEAKER) (test code = 1.5 mg/dL 1.6-2.6 L 627) BASIC METABOLIC [id number] 08:05:00 Test Item Value Reference Range Interpretation [...] NOT APPLICABLE FOR DIALYSIS PATIEN TS. POCT-GLUCOSE [id number] 21:57:00 Test Item Value Reference Range Interpretation Comments POC-GLUCOSE METER 219 mg/dL 70-110 H TESTED AT [place] [address] ([facility]) (test code = SHRAVAN Raymond [facility] 1538) [address] POCT-GLUCOSE [id number] 17:24:00 Test Item Value Reference Range Interpretation Comments POC-GLUCOSE METER 247 mg/dL 70-110 H TESTED AT [place] [address] ([facility]) (test code = SHRAVAN Raymond [facility] 1538) [address] CBC W/PLT COUNT & AUTO [id number] 13:56:00 Test Item Value Reference Range Interpretation [...] (BEAKER) (test code Normal = 762) POCT-GLUCOSE [id number] 13:22:00 Test Item Value Reference Range Interpretation Comments POC-GLUCOSE METER 226 mg/dL 70-110 H TESTED AT [facility] 6720 (BEAKER) (test code = [place] 1538) [address] POCT-GLUCOSE [id number] 07:59:00 Test Item Value Reference Range Interpretation Comments POC-GLUCOSE METER 216 mg/dL 70-110 H TESTED AT [facility] 6720 (BEAKER) (test code = [place] 1538) [address] [id number] 05:18:00 Test Item Value Reference Range Interpretation Comments MAGNESIUM (BEAKER) (test code = 1.7 mg/dL 1.6-2.6 627) BASIC METABOLIC [id number] 05:18:00 Test Item Value Reference Range Interpretation [...] NOT APPLICABLE FOR DIALYSIS PATIEN TS. POCT-GLUCOSE [id number] 20:58:00 Test Item Value Reference Range Interpretation Comments POC-GLUCOSE METER 260 mg/dL 70-110 H TESTED AT [place] [address] ([facility]) (test code = [facility] Mandi [facility] 1538) [address] POCT-GLUCOSE [id number] 17:32:00 Test Item Value Reference Range Interpretation Comments POC-GLUCOSE METER 237 mg/dL 70-110 H TESTED AT [place] [address] ([facility]) (test code = [facility] 1538) [address] POCT-GLUCOSE [id number] 16:21:00 Test Item Value Reference Range Interpretation Comments POC-GLUCOSE METER 223 mg/dL 70-110 H TESTED AT [place] [address] ([facility]) (test code = [facility] 1538) [address] CBC W/PLT COUNT & AUTO [id number] 14:22:00 Test Item Value Reference Range Interpretation [...] (BEAKER) (test code = Normal 762) POCT-GLUCOSE [id number] 11:52:00 Test Item Value Reference Range Interpretation Comments POC-GLUCOSE METER 143 mg/dL 70-110 H TESTED AT [facility] 6720 (BEAKER) (test code = SHRAVAN Raymond [facility] 1538) [address] POCT-GLUCOSE [id number] 08:04:00 Test Item Value Reference Range Interpretation Comments POC-GLUCOSE METER 86 mg/dL 70-110 TESTED AT [facility] 6720 (BEAKER) (test code = [facility] Mand[place] [facility] [address] 1538) [id number] 06:07:00 Test Item Value Reference Range Interpretation Comments MAGNESIUM (BEAKER) 1.6 mg/dL 1.6-2.6 Specimen slightly (test code = 627) hemolyzed BASIC METABOLIC [id number] 06:07:00 Test Item Value Reference Range Interpretation [...] NOT APPLICABLE FOR DIALYSIS PATIEN TS. POCT-GLUCOSE [id number] 20:42:00 Test Item Value Reference Range Interpretation Comments POC-GLUCOSE METER 338 mg/dL 70-110 H TESTED AT [facility] 6720 (BEBANNER) (test code = SHRAVAN Raymond [facility] 1538) [address] POCT-GLUCOSE [id number] 17:41:00 Test Item Value Reference Range Interpretation Comments POC-GLUCOSE METER 303 mg/dL 70-110 H TESTED AT [facility] 6720 ([facility]) (test code = SHRAVAN Raymond [facility] 1538) [address] RAD, CHEST, 1 VIEW, NON [id number] 14:44:00Reason for exam:->shortness of breath s/p RHCShould this be performed at the bedside?->YesFINAL REPORT CLINICAL HISTORY: shortness of breath s/p RHC TECHNIQUE: 1 viewof the chest. COMPARISON: 01/31/2017 IMPRESSION: Trace bilateral pleural effusions are again seen with left basilar atelectasis. The cardiomediastinal silhouette is magnified by technique with a pacemaker. Signed: Barbara Espinozaeport Verified Date/Time: 02/05/2017 14:44:20 Reading Location: [facility] C0[facility] Consult Reading Room CBC W/PLT COUNT & AUTO [id number] 14:37:00 Test Item Value Reference Range Interpretation [...] (BEAKER) (test code = Normal 762) POCT-GLUCOSE [id number] 12:08:00 Test Item Value Reference Range Interpretation Comments POC-GLUCOSE METER 197 mg/dL 70-110 H TESTED AT [facility] 67 (BEAKER) (test code = SHRAVAN Raymond [place] 1538) [address] POCT-GLUCOSE [id number] 07:55:00 Test Item Value Reference Range Interpretation Comments POC-GLUCOSE METER 149 mg/dL 70-110 H TESTED AT [facility] 67 (BEAKER) (test code = SHRAVAN Raymond [place] 1538) [address] [id number] 05:21:00 Test Item Value Reference Range Interpretation Comments MAGNESIUM (BEAKER) (test code = 1.4 mg/dL 1.6-2.6 L 627) BASIC METABOLIC [id number] 05:21:00 Test Item Value Reference Range Interpretation [...] NOT APPLICABLE FOR DIALYSIS PATIEN TS. POCT-GLUCOSE [id number] 21:03:00 Test Item Value Reference Range Interpretation Comments POC-GLUCOSE METER 296 mg/dL 70-110 H TESTED AT [facility] 67 ([facility]) (test code = [facility] [place] 1538) [address] POCT-GLUCOSE [id number] 17:18:00 Test Item Value Reference Range Interpretation Comments POC-GLUCOSE METER 275 mg/dL 70-110 H TESTED AT [place] [address] ([facility]) (test code = [facility] 1538) [address] CBC W/PLT COUNT & AUTO [id number] 15:04:00 Test Item Value Reference Range Interpretation [...] COUNTED (BEAKER) (test code = 1351) POCT-GLUCOSE [id number] 12:17:00 Test Item Value Reference Range Interpretation Comments POC-GLUCOSE METER 208 mg/dL 70-110 H TESTED AT [facility] 67 (BEAKER) (test code = [place] 1538) [address] POCT-GLUCOSE [id number] 08:57:00 Test Item Value Reference Range Interpretation Comments POC-GLUCOSE METER 230 mg/dL 70-110 H TESTED AT [facility] 6720 (BEAKER) (test code = [place] 1538) [address] [id number] 05:56:00 Test Item Value Reference Range Interpretation Comments MAGNESIUM (BEAKER) (test code = 1.6 mg/dL 1.6-2.6 627) BASIC METABOLIC [id number] 05:56:00 Test Item Value Reference Range Interpretation [...] NOT APPLICABLE FOR DIALYSIS PATIEN TS. POCT-GLUCOSE [id number] 21:20:00 Test Item Value Reference Range Interpretation Comments POC-GLUCOSE METER 329 mg/dL 70-110 H Notified R Warren WATTS/TESTED (BEAKER) (test code = AT [facility] [address] [place] 1538) [facility] [address] POCT-GLUCOSE [id number] 18:14:00 Test Item Value Reference Range Interpretation Comments POC-GLUCOSE METER 299 mg/dL 70-110 H TESTED AT [facility] 6720 (AKER) (test code = SHRAVAN Raymond [facility] 1538) [address] CBC W/PLT COUNT & AUTO [id number] 15:17:00 Test Item Value Reference Range Interpretation [...] (BEAKER) (test code = Normal 762) POCT-GLUCOSE [id number] 12:54:00 Test Item Value Reference Range Interpretation Comments POC-GLUCOSE METER 173 mg/dL 70-110 H TESTED AT [facility] 6720 (BEAKER) (test code = [place]VAN [place] 1538) [address] URINALYSIS W/ REFLEX URINE [id number] 12:06:00 Test Item Value Reference Range Interpretation [...] code = 1584) SOURCE(BEAKER) (test code = 3495) CREATININE, RANDOM [id number] 10:52:00 Test Item Value Reference Range Interpretation Comments CREATININE URINE (BEAKER) (test 127.3 mg/dL code = 375) Reference Range: No NormalsPROTEIN, RANDOM [id number] 10:52:00 Test Item Value Reference Range Interpretation Comments PROTEIN, URINE (BEAKER) (test code = 19 mg/dL 0-14 H 1569) POCT-GLUCOSE [id number] 07:55:00 Test Item Value Reference Range Interpretation Comments POC-GLUCOSE METER 88 mg/dL 70-110 TESTED AT [facility] 6720 (BEAKER) (test code = [place] [address] 1538) [id number] 05:22:00 Test Item Value Reference Range Interpretation Comments MAGNESIUM (BEAKER) (test code = 1.8 mg/dL 1.6-2.6 627) BASIC METABOLIC [id number] 05:22:00 Test Item Value Reference Range Interpretation [...] 0-100 H (test code = 700) POCT-GLUCOSE [id number] 21:36:00 Test Item Value Reference Range Interpretation Comments POC-GLUCOSE METER 230 mg/dL 70-110 H TESTED AT [facility] 67 ([facility]) (test code = SHRAVAN Raymond [facility] 1538) [address] POCT-GLUCOSE [id number] 17:50:00 Test Item Value Reference Range Interpretation Comments POC-GLUCOSE METER 185 mg/dL 70-110 H TESTED AT [facility] 6720 (BEBANNER) (test code = SHRAVAN [place] 1538) [address] POCT-GLUCOSE [id number] 12:49:00 Test Item Value Reference Range Interpretation Comments POC-GLUCOSE METER 168 mg/dL 70-110 H TESTED AT [facility] 6720 (BEBANNER) (test code = SHRAVAN Raymond [place] 1538) [address] CT, CHEST, WITHOUT [id number] 11:27:00FINAL REPORT Chest CT without contrast Reason [...] MDReport Verified Date/Time: 02/02/2017 11:27:58 Reading Location: [address] Reading Room POCT-GLUCOSE [id number] 08:24:00 Test Item Value Reference Range Interpretation Comments POC-GLUCOSE METER 84 mg/dL 70-110 TESTED AT [facility] 6720 (BEBANNER) (test code = SHRAVAN Raymond [facility] [address] 1538) [id number] 07:42:00 Test Item Value Reference Range Interpretation Comments MAGNESIUM (BEAKER) (test code = 1.8 mg/dL 1.6-2.6 627) BASIC METABOLIC [id number] 07:42:00 Test Item Value Reference Range Interpretation [...] PATIEN TS. CBC W/PLT COUNT & AUTO [id number] 07:40:00 Test Item Value Reference Range Interpretation [...] PERCENT (BEAKER) (test code = 2801) POCT-GLUCOSE [id number] 21:29:00 Test Item Value Reference Range Interpretation Comments POC-GLUCOSE METER 273 mg/dL 70-110 H TESTED AT [place] [address] (BEBANNER) (test code = [place] 1538) [address] POCT-GLUCOSE [id number] 19:21:00 Test Item Value Reference Range Interpretation Comments POC-GLUCOSE METER 286 mg/dL 70-110 H TESTED AT [place] [address] (BEBANNER) (test code = [place] 1538) [address] POCT-GLUCOSE [id number] 17:33:00 Test Item Value Reference Range Interpretation Comments POC-GLUCOSE METER 263 mg/dL 70-110 H TESTED AT [place] [address] (BEBANNER) (test code = [place] 1538) [address] POCT-GLUCOSE [id number] 12:25:00 Test Item Value Reference Range Interpretation Comments POC-GLUCOSE METER 196 mg/dL 70-110 H TESTED AT [place] [address] (BEBANNER) (test code = [place] 1538) [address] CBC W/PLT COUNT & AUTO [id number] 10:54:00 Test Item Value Reference Range Interpretation [...] (BEAKER) (test code = Normal 762) POCT-GLUCOSE [id number] 08:17:00 Test Item Value Reference Range Interpretation Comments POC-GLUCOSE METER 176 mg/dL 70-110 H TESTED AT [facility] 6720 (BEAKER) (test code = [place]VAN [place] 1538) [address] [id number] 06:41:00 Test Item Value Reference Range Interpretation Comments MAGNESIUM (BEAKER) (test code = 1.7 mg/dL 1.6-2.6 627) BASIC METABOLIC [id number] 06:41:00 Test Item Value Reference Range Interpretation [...] NOT APPLICABLE FOR DIALYSIS PATIEN TS. POCT-GLUCOSE [id number] 21:33:00 Test Item Value Reference Range Interpretation Comments POC-GLUCOSE METER 295 mg/dL 70-110 H TESTED AT [facility] 6720 (BEAKER) (test code = [place] 1538) [address] POCT-GLUCOSE [id number] 17:47:00 Test Item Value Reference Range Interpretation Comments POC-GLUCOSE METER 277 mg/dL 70-110 H TESTED AT [place] [address] ([facility]) (test code = SHRAVAN Raymond [facility] 1538) [address] RAD, CHEST, 2 [id number] 15:44:00Reason for exam:->dyspneaFINAL REPORT HISTORY : dyspnea. [...] Moran Verified Date/Time: 01/31/2017 15:44:13 Reading Location: [address] Ortho Consult Reading Room POCT-GLUCOSE [id number] 11:51:00 Test Item Value Reference Range Interpretation Comments POC-GLUCOSE METER 238 mg/dL 70-110 H TESTED AT [place] [address] ([facility]) (test code = SHRAVAN Raymond [facility] 1538) [address] POCT-GLUCOSE [id number] 09:54:00 Test Item Value Reference Range Interpretation Comments POC-GLUCOSE METER 224 mg/dL 70-110 H TESTED AT [place] [address] ([facility]) (test code = SHRAVAN Raymond [facility] 1538) [address] CBC W/PLT COUNT & AUTO [id number] 05:34:00 Test Item Value Reference Range Interpretation Comments WHITE BLOOD CELL COUNT ([facility]) 9.4 K/ L 3.5-10.5 (test code = 775) RED BLOOD CELL COUNT ([facility]) 4.42 M/ L 4.63-6.08 L (test code [...] 0-1 PERCENT (BEAKER) (test code = 2801) [id number] 05:19:00 Test Item Value Reference Range Interpretation Comments MAGNESIUM (BEAKER) (test code = 1.8 mg/dL 1.6-2.6 627) BASIC METABOLIC [id number] 05:19:00 Test Item Value Reference Range Interpretation [...] APPLICABLE FOR DIALYSIS PATIEN TS. STREP PNEUMONIAE [id number] 23:56:00 Test Item Value Reference Range Interpretation [...] detection limit of the test. LEGIONELLA ANTIGEN, [id number] 23:54:00 Test Item Value Reference Range Interpretation [...] may cau se disease. INFLUENZA A H1N1 [id number] 23:10:00 Test Item Value Reference Range Interpretation Comments INFLUENZA A RNA Not Detected Not Detected, (BEAKER) (test code = Inconclusive 1545) NOVEL H1N1 RNA (BEAKER) Not Detected Not Detected, (test code = 1546) Inconclusive These assays were performed by real-time RT-PCR (sports marketing specialist-PCR) utilizing fluorogenic hydrolysis probe technology for the detection of human Influenza A viruses and the differential detection of novel H1N1 Influenza virus in respiratory specimens. The test is composed of (1) an RNA extraction from patient specimen, and (2) sports marketing specialist-PCR amplification and detection with human Influenza A and novel R4M4-pcpczxwq primers and probes. A well-conserved region of [...] its performance characte ristics determined by the [facility] Pathology Department, Section of Molecular Pathology. It has not been cleared or approved by the U.S. Food and Drug Administration (FDA). SinceFDA approval is not required for clinical use of the test, validation was done as required by The Clinical Laboratory Amendments of 1988.These assays were performed by real-time RT-PCR (sports marketing specialist-PCR) utilizing fluorogenic hydrolysis probe technology for the detection of human Influenza A viruses and the differential detection of novel H1N1 Influenza virus in respiratory specimens. The test is composed of (1) an RNA extraction from patient specimen, and (2) sports marketing specialist-PCR amplification and detection with human In fluenza A and novel [id number] primers and probes. A well-conserved region of [...] and its performance characteristics determined by the [facility] Pathology Department, Section of Molecular [...] METER 233 mg/dL 70-110 H TESTED AT [facility] 6720 (BEAKER) (test code = [place] 1538) [address] U/S, RENAL, [id number] 22:23:00Reason for exam:->akiFINAL REPORT U/S, RENAL, COMPLETE [...] MDReport Verified Date/Time: 01/30/2017 22:23:06 Reading Location: [address] Ortho Consult Reading Room SODIUM, RANDOM [id number] 20:40:00 Test Item Value Reference Range Interpretation Comments SODIUM URINE (BEAKER) (test code = < meq/L 243) Reference Range: No NormalsEOSINOPHIL SMEAR, [id number] 20:40:00 Test Item Value Reference Range Interpretation Comments EOSINOPHIL SMEAR, URINE (BEAKER) No EOS seen No EOS seen (test code = 1851) CREATININE, RANDOM [id number] 20:24:00 Test Item Value Reference Range Interpretation Comments CREATININE URINE (BEAKER) (test 113.2 mg/dL code = 375) Reference Range: No NormalsMICROALBUMIN, RANDOM [id number] 20:24:00 Test Item Value Reference Range Interpretation Comments MICROALBUMIN URINE (BEAKER) (test 4.2 mg/dL code = 1794) Reference Range: No NormalsURINALYSIS W/ [id number] 20:14:00 Test Item Value Reference Range Interpretation [...] 516) SOURCE(BEAKER) (test code = Urine, Voided 1446) POCT-GLUCOSE [id number] 18:25:00 Test Item Value Reference Range Interpretation Comments POC-GLUCOSE METER 230 mg/dL 70-110 H TESTED AT [place] [address] (BEBANNER) (test code = [facility] 1538) [address] POCT-GLUCOSE [id number] 13:49:00 Test Item Value Reference Range Interpretation Comments POC-GLUCOSE METER 267 mg/dL 70-110 H TESTED AT [place] [address] ([facility]) (test code = [facility] 1538) [address] HEMOGLOBIN [id number] 11:50:00 Test Item Value Reference Range Interpretation Comments HEMOGLOBIN A1C (BEBANNER) (test code = 10.7 % 4.3-6.1 H 368) TROPONIN [id number] 11:42:00 Test Item Value Reference Range Interpretation [...] acidosis, acute neurological disease, and persistent tachyarrhythmia.POCT-GLUCOSE [id number] 09:41:00 Test Item Value Reference Range Interpretation Comments POC-GLUCOSE METER 228 mg/dL 70-110 H TESTED AT [facility] 6720 (BEAKER) (test code = [place] 1538) [address] RAD, CHEST, 1 VIEW, NON [id number] 07:41:00Reason for exam:->eval pneumoniaShould this be performed [...] Moran MDReport Verified Date/Time: 01/30/2017 07:41:41 ReadingLocation: [facility] B1 C013T Transitional Reading Room MAGNESIUM 2017-01-30 02:54:00 Test Item Value Reference Range Interpretation Comments MAGNESIUM (BEAKER) (test code = 1.6 mg/dL 1.6-2.6 627) BASIC METABOLIC [id number] 02:54:00 Test Item Value Reference Range Interpretation [...] FOR DIALYSIS PATIEN TS. RAPID INFLUENZA A&B [id number] 02:41:00 Test Item Value Reference Range Interpretation Comments RAPID INFLUENZA A AG (BEAKER) Negative Negative, Inconclusive (test code = 1622) RAPID INFLUENZA B AG (BEAKER) Negative Negative, Inconclusive (test code = 1623) CBC W/PLT COUNT & AUTO [id number] 02:07:00 Test Item Value Reference Range Interpretation [...] PERCENT (BEAKER) (test code = 2801) POCT-GLUCOSE [id number] 23:18:00 Test Item Value Reference Range Interpretation Comments POC-GLUCOSE METER 230 mg/dL 70-110 H TESTED AT [facility] 6720 (BEAKER) (test code = [place] 1538) [address] CHEM [id number] 10:03:00 Test Item Value Reference Range Interpretation Comments Phosphorus (test code = Phosphorus) 3.1 2.5-4.5 [facility] [id number] 10:03:00 Test Item Value Reference Range Interpretation Comments Magnesium Lvl (test code = Magnesium 2.6 1.8-2.4 Lvl) [facility]iEQRDLGKXUCMF1646-10-68 10:03:00 Test Item Value Reference Range Interpretation Comments AGAP (test code = AGAP) 11.1 10.0-20.0 [facility] HospitalZozneuhNKUIIICHUUCJ6507-71-25 10:03:00 Test Item Value Reference Range Interpretation Comments Potassium Lvl (test code = Potassium 4.1 3.5-5.1 Lvl) [facility] HospitalRyklmdmGKMFLMAHQVDV0401-29-76 10:03:00 Test Item Value Reference Range Interpretation Comments Chloride Lvl (test code = Chloride Lvl) 105 95-109 [facility] HospitalYvtlzcmHNNTGJQJDCGI4427-10-66 10:03:00 Test Item Value Reference Range Interpretation Comments CO2 (test code = CO2) 25 24-32 [facility] HospitalZcpsafaNBBQJRXEXKHJ1844-99-53 10:03:00 Test Item Value Reference Range Interpretation Comments eGFR (test code = eGFR) 74 [facility] HospitalCmyojbdNFRDGROYJIYB3015-58-09 10:03:00 Test Item Value Reference Range Interpretation Comments BUN (test code = BUN) 16 7-22 [facility] HospitalZmthlsoSDCZWIWUKQPC8198-13-00 10:03:00 Test Item Value Reference Range Interpretation Comments Glucose Lvl (test code = Glucose Lvl) 177 70-99 [facility] HospitalEtedrbiHUOUFVEDPRZJ8612-38-10 10:03:00 Test Item Value Reference Range Interpretation Comments Calcium Lvl (test code = Calcium Lvl) 8.7 8.5-10.5 [facility] HospitalZgzovcjMQAAGENOVWCM0370-69-47 10:03:00 Test Item Value Reference Range Interpretation Comments Creatinine Lvl (test code = Creatinine 1.00 0.50-1.40 Lvl) [facility] HospitalDhtwqswOIXVBMSVOMDD8907-24-08 10:03:00 Test Item Value Reference Range Interpretation Comments Sodium Lvl (test code = Sodium Lvl) 137 135-145 [facility] CampusIxdhxlrNZNGGUDKVW4002-37-93 10:03:00 Test Item Value Reference Range Interpretation Comments Plt Morph (test code = Normal (09/12/16 5:03 AM) Plt Morph) [facility] CampusBfgkamvRYHUZKLYRW7482-61-20 10:03:00 Test Item Value Reference Range Interpretation Comments Bands (test code = 0.0 See_Comment [Automat ed message] The Bands) system which ge nerated this result transmit vy reference range : <=11.0. The reference r gianfranco was not used to interpr et this result as daquan l/abnormal. [facility] CampusOrmzmquAPHCNYHEFL8387-43-27 10:03:00 Test Item Value Reference Range Interpretation Comments Atypical Lymphs (test code = Atypical 0.0 Lymphs) [facility] CampusNniwonrAQYFLJCBDB6838-87-05 10:03:00 Test Item Value Reference Range Interpretation Comments Monocytes (test code = Monocytes) 17.0 2.0-12.0 [facility] CampusVkqkaliKDZVMRHLWV8591-09-96 10:03:00 Test Item Value Reference Range Interpretation Comments RBC Morph (test code = Normal (09/12/16 5:03 AM) RBC Morph) [facility] CampusUtdqfkdXJEAZKDBFB5513-27-39 10:03:00 Test Item Value Reference Range Interpretation Comments Eosinophils (test code = 1.0 See_Comment [A utomated message] The Eosinophils) system which ge nerated this result tra nsmitted reference range : <=4.0. The reference r gianfranco was not used to int erpret this result as normal/abnormal . [facility] Camp[id number] 10:03:00 Test Item Value Reference Range Interpretation Comments Lymphocytes (test code = Lymphocytes) 27.0 20.0-40.0 [facility] CampusBledwihNVOXWETCNS7503-60-75 10:03:00 Test Item Value Reference Range Interpretation Comments Segs-Bands # (test code = Segs-Bands #) 4.8 1.5-8.1 [facility] CampusLefojdeFFQJHTKARB5054-83-51 10:03:00 Test Item Value Reference Range Interpretation Comments Lymphocytes # (test code = Lymphocytes 2.3 1.0-5.5 #) [facility] CampusFczomvtZZIFFEHXAN6063-59-42 10:03:00 Test Item Value Reference Range Interpretation Comments Segs (test code = Segs) 55.0 45.0-75.0 [facility] CampusLxvhlhwPXDOATQTYC3463-88-98 10:03:00 Test Item Value Reference Range Interpretation Comments Eosinophils # (test code 0.1 See_Comment [A utomated message] The = Eosinophils #) system whic h generated this result tra nsmitted reference range : <=0.5. The reference r gianfranco was not used to int erpret this result as normal/abnormal . [facility] CampusMmbmecbDYTVDEYQGT7164-02-63 10:03:00 Test Item Value Reference Range Interpretation Comments Monocytes # (test code 1.5 See_Comment [Aut omated message] The = Monocytes #) system which generated this result tra nsmitted reference range : <=0.8. The reference r gianfranco was not used to int erpret this result as normal/abnormal . [facility] CampusXufwjxgCXJZAQKJNB5021-69-50 10:03:00 Test Item Value Reference Range Interpretation Comments MPV (test code = MPV) 7.7 7.4-10.4 [facility] CampusZrgryqgSTNPAFLTUG3970-60-94 10:03:00 Test Item Value Reference Range Interpretation Comments MCH (test code = MCH) 29.8 pg 27.0-31.0 [facility] CampusPainomjUMMFLRIMAJ8042-81-57 10:03:00 Test Item Value Reference Range Interpretation Comments MCV (test code = MCV) 88.2 80.0-94.0 [facility] CampusEvogqjvYVCLGSQLYP0872-38-64 10:03:00 Test Item Value Reference Range Interpretation Comments Platelet (test code = Platelet) 177 133-450 [facility] CampusRklckvxEWUAYPRMAI3442-10-86 10:03:00 Test Item Value Reference Range Interpretation Comments RDW (test code = RDW) 14.7 11.5-14.5 [facility] CampusKahkcnlJOSLSQMSAC8732-95-46 10:03:00 Test Item Value Reference Range Interpretation Comments MCHC (test code = MCHC) 33.8 32.0-36.0 [facility] CampusIfujzjpDTANROQHXW0639-08-32 10:03:00 Test Item Value Reference Range Interpretation Comments RBC (test code = RBC) 3.97 4.70-6.10 [facility] CampusUlzvyqiTRDNPPAIWL4973-11-07 10:03:00 Test Item Value Reference Range Interpretation Comments Hgb (test code = Hgb) 11.8 14.0-18.0 [facility] CampusWhxrtrnESLECSNCBD9639-26-02 10:03:00 Test Item Value Reference Range Interpretation Comments WBC (test code = WBC) 8.7 3.7-10.4 [facility] CampusOrvejkgSLOUSCYJQQ8971-50-12 10:03:00 Test Item Value Reference Range Interpretation Comments Hct (test code = Hct) 35.0 42.0-54.0 [facility]2017-08-04 23:45:00 Test Item Value Reference Range Interpretation Comments BUN (test code = BUN) 13 7-22 [facility]2017-08-04 23:45:00 Test Item Value Reference Range Interpretation Comments Glucose Lvl (test code = Glucose Lvl) 146 70-99 [facility]2017-08-04 23:45:00 Test Item Value Reference Range Interpretation Comments eGFR (test code = eGFR) 68 [facility]2017-08-04 23:45:00 Test Item Value Reference Range Interpretation Comments AGAP (test code = AGAP) 13.8 10.0-20.0 [facility]2017-08-04 23:45:00 Test Item Value Reference Range Interpretation Comments Calcium Lvl (test code = Calcium Lvl) 9.0 8.5-10.5 [facility]CHE[facility] [id number] 23:45:00 Test Item Value Reference Range Interpretation Comments CO2 (test code = CO2) 26 -32 [facility] [id number] 23:45:00 Test Item Value Reference Range Interpretation Comments Chloride Lvl (test code = Chloride Lvl) 104 95-109 [facility] [id number] 23:45:00 Test Item Value Reference Range Interpretation Comments Potassium Lvl (test code = Potassium 3.8 3.5-5.1 Lvl) [facility] [id number] 23:45:00 Test Item Value Reference Range Interpretation Comments Sodium Lvl (test code = Sodium Lvl) 140 135-145 [facility] FENEW0052-25-33 23:45:00 Test Item Value Reference Range Interpretation Comments Creatinine Lvl (test code = Creatinine 1.07 0.50-1.40 Lvl) [facility] [employer] SHINNHP5890-88-21 16:12:00 Test Item Value Reference Range Interpretation Comments ABO/Rh (test code = ABO/Rh) O POS [facility] RBPIAZT9892-41-30 16:12:00 Test Item Value Reference Range Interpretation Comments Antibody Scrn (test Negative (09/11/16 11:12 code = Antibody Scrn) AM) [facility] [id number] 16:12:00 Test Item Value Reference Range Interpretation Comments Phosphorus (test code = Phosphorus) 3.3 2.5-4.5 [facility] [id number] 16:12:00 Test Item Value Reference Range Interpretation Comments Magnesium Lvl (test code = Magnesium 1.6 1.8-2.4 Lvl) [facility]JuwowbrTYGESUPXMWQF8937-08-00 16:12:00 Test Item Value Reference Range Interpretation Comments AGAP (test code = AGAP) 9.7 10.0-20.0 [facility] DxkuzghIVPFEALGDPUS5117-81-91 16:12:00 Test Item Value Reference Range Interpretation Comments eGFR (test code = eGFR) 69 [facility]FzqxbsxYKPAHUXSDNZL2358-45-21 16:12:00 Test Item Value Reference Range Interpretation Comments CO2 (test code = CO2) 28 -32 [facility] HospitalBbjkwxaUQSLSGUBQRKN3617-15-80 16:12:00 Test Item Value Reference Range Interpretation Comments Chloride Lvl (test code = Chloride Lvl) 102 95-109 [facility] HospitalJbfyqcwTOXRPLCNIVMP5982-67-05 16:12:00 Test Item Value Reference Range Interpretation Comments Potassium Lvl (test code = Potassium 3.7 3.5-5.1 Lvl) [facility] HospitalRiejnlrIWRICLPZAHGB6348-21-94 16:12:00 Test Item Value Reference Range Interpretation Comments Calcium Lvl (test code = Calcium Lvl) 8.9 8.5-10.5 [facility] HospitalNftekgjIBZIFALUWLIW6619-11-17 16:12:00 Test Item Value Reference Range Interpretation Comments Sodium Lvl (test code = Sodium Lvl) 136 135-145 [facility] HospitalUfqksmrYZFCKCFTEVKI9791-23-77 16:12:00 Test Item Value Reference Range Interpretation Comments Creatinine Lvl (test code = Creatinine 1.06 0.50-1.40 Lvl) [facility] HospitalWdjwabqPZNOVYTIBVIK0504-35-12 16:12:00 Test Item Value Reference Range Interpretation Comments BUN (test code = BUN) 15 7-22 [facility] HospitalHoovzrpUUGMCSHMEUMS5849-42-07 16:12:00 Test Item Value Reference Range Interpretation Comments Glucose Lvl (test code = Glucose Lvl) 87 70-99 [facility] CampusEjljppwEHACTJFVJM3466-11-95 16:12:00 Test Item Value Reference Range Interpretation Comments Hct (test code = Hct) 33.1 42.0-54.0 [facility] CampusYzxagobRQMKUTRSVS5965-15-39 16:12:00 Test Item Value Reference Range Interpretation Comments Platelet (test code = Platelet) 188 133-450 [facility] CampusKbbbqamZYVQRKVAFL5434-54-86 16:12:00 Test Item Value Reference Range Interpretation Comments Hgb (test code = Hgb) 11.0 14.0-18.0 [facility] CampusSeiqvusAYCEHZIDFX4257-15-52 16:12:00 Test Item Value Reference Range Interpretation Comments MPV (test code = MPV) 7.5 7.4-10.4 [facility] CampusAauvxspKGTZMTMOUB1319-00-49 16:12:00 Test Item Value Reference Range Interpretation Comments MCV (test code = MCV) 89.2 80.0-94.0 [facility] CampusPyxbiquYYRBVZVAGJ5829-41-83 16:12:00 Test Item Value Reference Range Interpretation Comments MCH (test code = MCH) 29.5 pg 27.0-31.0 [facility] CampusFhzlgaaPVUORISKVE2454-84-87 16:12:00 Test Item Value Reference Range Interpretation Comments RBC (test code = RBC) 3.72 4.70-6.10 [facility] CampusOoardodXPAUSOPNQV9303-54-59 16:12:00 Test Item Value Reference Range Interpretation Comments RDW (test code = RDW) 14.7 11.5-14.5 [facility] CampusWqggnbaHKLMDVBUEG7818-69-81 16:12:00 Test Item Value Reference Range Interpretation Comments WBC (test code = WBC) 8.2 3.7-10.4 [facility] CampusTktejxdOBJONKFZMX9813-00-18 16:12:00 Test Item Value Reference Range Interpretation Comments MCHC (test code = MCHC) 33.1 32.0-36.0 [facility] CampusHmnlpzpBFPTNLNFTZ1867-04-70 16:12:00 Test Item Value Reference Range Interpretation Comments PT (test code = PT) 16.6 s 12.0-14.7 [facility] CampusPbnmnbfENZBSBSQGR8223-52-35 16:12:00 Test Item Value Reference Range Interpretation Comments INR (test code = INR) 1.32 0.85-1.17 [facility] CampusQkekqyfVKINFGAAML6604-16-31 16:12:00 Test Item Value Reference Range Interpretation Comments PTT (test code = PTT) 43.0 s 22.9-35.8 [facility] CampusVevkjvfAHEUTYHIDW9448-21-78 16:12:00 Test Item Value Reference Range Interpretation Comments Monocytes # (test code 1.6 See_Comment [Aut omated message] The = Monocytes #) system which generated this result tra nsmitted reference range : <=0.8. The reference r gianfranco was not used to int erpret this result as normal/abnormal . [facility] CampusOmjtxxbJHFSTGTCKH4027-63-83 16:12:00 Test Item Value Reference Range Interpretation Comments Eosinophils # (test code 0.3 See_Comment [A utomated message] The = Eosinophils #) system whic h generated this result tra nsmitted reference range : <=0.5. The reference r gianfranco was not used to int erpret this result as normal/abnormal . [facility] CampusKmzgmvaRQFVMFUYWG6806-96-32 16:12:00 Test Item Value Reference Range Interpretation Comments Lymphocytes # (test code = Lymphocytes 1.7 1.0-5.5 #) [facility] CampusUgusqqrTPSBFHPTRH7401-94-22 16:12:00 Test Item Value Reference Range Interpretation Comments Basophils (test code = 0.5 See_Comment [Aut omated message] The Basophils) system which ge nerated this result tra nsmitted reference range : <=1.0. The reference r gianfranco was not used to int erpret this result as normal/abnormal . [facility] CampusIbmaojuHAFTSIRVLC4321-48-46 16:12:00 Test Item Value Reference Range Interpretation Comments Segs-Bands # (test code = Segs-Bands #) 4.5 1.5-8.1 [facility] CampusJqsyutcFPSIRHOLAW4828-74-37 16:12:00 Test Item Value Reference Range Interpretation Comments Eosinophils (test code = 3.4 See_Comment [A utomated message] The Eosinophils) system which ge nerated this result tra nsmitted reference range : <=4.0. The reference r gianfranco was not used to int erpret this result as normal/abnormal . [facility] CampusKuzvrchDGAUOKRMZM6494-08-04 16:12:00 Test Item Value Reference Range Interpretation Comments Segs (test code = Segs) 55.3 45.0-75.0 [facility] CampusXoklkdqLRANAUQECS5275-32-86 16:12:00 Test Item Value Reference Range Interpretation Comments Lymphocytes (test code = Lymphocytes) 21.2 20.0-40.0 [facility] CampusIjnhojsJGQIXQXYAM8378-78-06 16:12:00 Test Item Value Reference Range Interpretation Comments Monocytes (test code = Monocytes) 19.6 2.0-12.0 [facility]2015-01-26 16:27:00 Test Item Value Reference Range Interpretation Comments Calcium Lvl (test code = Calcium Lvl) 9.4 8.5-10.5 [facility]2015-01-26 16:27:00 Test Item Value Reference Range Interpretation Comments CO2 (test code = CO2) 26 24-32 [facility]2015-01-26 16:27:00 Test Item Value Reference Range Interpretation Comments eGFR (test code = eGFR) 40 [facility]2015-01-26 16:27:00 Test Item Value Reference Range Interpretation Comments BUN (test code = BUN) 45 7-22 [facility]2015-01-26 16:27:00 Test Item Value Reference Range Interpretation Comments Glucose Lvl (test code = Glucose Lvl) 100 70-99 [facility]2015-01-26 16:27:00 Test Item Value Reference Range Interpretation Comments Potassium Lvl (test code = Potassium 4.4 3.5-5.1 Lvl) [facility]2015-01-26 16:27:00 Test Item Value Reference Range Interpretation Comments Chloride Lvl (test code = Chloride Lvl) 106 95-109 [facility]2015-01-26 16:27:00 Test Item Value Reference Range Interpretation Comments Creatinine Lvl (test code = Creatinine 1.7 0.5-1.4 Lvl) [facility]2015-01-26 16:27:00 Test Item Value Reference Range Interpretation Comments Sodium Lvl (test code = Sodium Lvl) 139 135-145 [facility]2015-01-26 16:27:00 Test Item Value Reference Range Interpretation Comments AGAP (test code = AGAP) 11.4 10.0-20.0 [facility] CampusKzuacelGQHJVICOKJ4254-76-20 16:27:00 Test Item Value Reference Range Interpretation Comments MPV (test code = MPV) 7.3 7.4-10.4 [facility] CampusRlocdvlIMVGAFLYID5185-44-25 16:27:00 Test Item Value Reference Range Interpretation Comments MCHC (test code = MCHC) 33.9 32.0-36.0 [facility] CampusNfjsefaDXZXOKTEOR3558-01-29 16:27:00 Test Item Value Reference Range Interpretation Comments Platelet (test code = Platelet) 198 133-450 [facility] CampusSngvyrfADJQFTQOEP7198-24-03 16:27:00 Test Item Value Reference Range Interpretation Comments Hgb (test code = Hgb) 13.7 14.0-18.0 [facility] CampusZkoqdauJJGRIVGBTO7459-22-22 16:27:00 Test Item Value Reference Range Interpretation Comments RDW (test code = RDW) 14.6 11.5-14.5 [facility] CampusGuxjnqxETHXLBSJFZ5828-61-37 16:27:00 Test Item Value Reference Range Interpretation Comments Hct (test code = Hct) 40.4 42.0-54.0 [facility] CampusKpmvvnhYCFOUTNEHZ5119-66-37 16:27:00 Test Item Value Reference Range Interpretation Comments MCH (test code = MCH) 31.5 pg 27.0-31.0 [place] 148685-01-26 16:27:00 Test Item Value Reference Range Interpretation Comments MCV (test code = MCV) 92.8 80.0-94.0 [facility] CampusVuqrukrXFQGRVTOND2806-53-74 16:27:00 Test Item Value Reference Range Interpretation Comments RBC (test code = RBC) 4.35 4.70-6.10 [facility] CampusGtogrmcCOQJVCOPNJ9965-56-80 16:27:00 Test Item Value Reference Range Interpretation Comments WBC (test code = WBC) 9.4 3.7-10.4 [facility] CampusZyggyqfRALPJSGWCF3993-99-87 16:27:00 Test Item Value Reference Range Interpretation Comments Eosinophils (test code = 2.4 See_Comment [A utomated message] The Eosinophils) system which ge nerated this result tra nsmitted reference range : <=4.0. The reference r gianfranco was not used to int erpret this result as normal/abnormal . [facility] CampusKlekdryKDHNIDIWCQ5296-32-74 16:27:00 Test Item Value Reference Range Interpretation Comments Monocytes (test code = Monocytes) 14.6 2.0-12.0 [facility] CampusPkscruiKGQRQFXPQJ0711-36-43 16:27:00 Test Item Value Reference Range Interpretation Comments Segs-Bands # (test code = Segs-Bands #) 5.5 1.5-8.1 [facility] CampusUesshppQQWVRUYGVA5227-70-63 16:27:00 Test Item Value Reference Range Interpretation Comments Lymphocytes (test code = Lymphocytes) 24.1 20.0-40.0 [facility] CampusMbwxahnZNYJGEKGBD2517-61-68 16:27:00 Test Item Value Reference Range Interpretation Comments Segs (test code = Segs) 58.6 45.0-75.0 [facility] CampusZprvgksRXLDVEWIQS1222-73-36 16:27:00 Test Item Value Reference Range Interpretation Comments Basophils # (test code 0.0 See_Comment [Aut omated message] The = Basophils #) system which generated this result tra nsmitted reference range : <=0.2. The reference r gianfranco was not used to int erpret this result as normal/abnormal . [facility] CampusRpagvsxLLQJLZCTQA0381-27-58 16:27:00 Test Item Value Reference Range Interpretation Comments Eosinophils # (test code 0.2 See_Comment [A utomated message] The = Eosinophils #) system whic h generated this result tra nsmitted reference range : <=0.5. The reference r gianfranco was not used to int erpret this result as normal/abnormal . [facility] CampusYffnbetYIBNZYPBRE0881-83-65 16:27:00 Test Item Value Reference Range Interpretation Comments Basophils (test code = 0.3 See_Comment [Aut omated message] The Basophils) system which ge nerated this result tra nsmitted reference range : <=1.0. The reference r gianfranco was not used to int erpret this result as normal/abnormal . [id number] 16:27:00 Test Item Value Reference Range Interpretation Comments Monocytes # (test code 1.4 See_Comment [Aut omated message] The = Monocytes #) system which generated this result tra nsmitted reference range : <=0.8. The reference r gianfranco was not used to int erpret this result as normal/abnormal . [facility] [id number] 16:27:00 Test Item Value Reference Range Interpretation Comments Lymphocytes # (test code = Lymphocytes 2.3 1.0-5.5 #) [facility]
[2021-06-30] MEDS ORDERED: HYDROCODONE/APAP 5/325 MG TAB ONE (12:38)
--- NOTE | 2021-06-30 13:57 | RAD REPORT ---
EXAM DESCRIPTION: RAD - Knee Right 3 View - 06/30/2021 1:20 pm CLINICAL HISTORY: PAIN, fall COMPARISON: No comparisons FINDINGS: No fracture, dislocation or periosteal reaction.No joint effusion seen. Total knee prosthe sis in place with no radiographic evidence for loosening. No foreign body in the soft tissues. There is evidence for edema in the subcutaneous fatty tissues of the baseline for the patient is unknown. IMPRESSION: No acute bone, joint or implant finding. Soft tissues appear edematous but the baseline for the patient is unknown.
--- NOTE | 2021-06-30 15:17 | RAD REPORT ---
EXAM DESCRIPTION: US - Extremity Venous Uni Ltd - 06/30/2021 3:10 pm CLINICAL HISTORY: SWELLING COMPARISON: None. TECHNIQUE: Real-time sonographic evaluation of the right lower extremity deep venous systems was per formed. FINDINGS: Normal compressibility, flow augmentation, phasic flow and spontaneous flow are identified in the right lower extremity common femoral, superficial femoral, popliteal and posterior tibial vei ns. No intraluminal filling defects seen. IMPRESSION: No DVT in the right lower extremity.
--- NOTE | 2021-06-30 15:34 | ER ---
Nurse's Notes [facility] Name: Ely Coley Age: 76 yrs Sex: Male : 1945 Arrival Date: 06/30/2021 Time: 11:47 Bed 16 Private MD: Dulce Shah Diagnosis: Cellulitis of right lower limb Presentation: 06/30 12:12 Chief complaint: Patient states: "I fell about a week ago and hit my right knee. I have jd3 a previous knee replacement in that right knee.". Coronavirus screen: At this time, the client does not indicate any symptoms associated with coronavirus-19. Ebola Screen: No symptoms or risks identified at this time. Initial Sepsis Screen: Does the patient meet any 2 criteria? No. Patient's initial sepsis screen is negative. Does the patient have a suspected source of infection? No. Patient's initial sepsis screen is negative. Risk Assessment: Do you want to hurt yourself or someone else? Patient reports no desire to harm self or others. Onset of symptoms was June 30, 2021. 12:12 Method Of Arrival: Wheelchair jd3 12:12 Acuity: MITCH 3 jd3 Historical: - Allergies: 12:14 metformin; jd3 12:14 Glucophage; jd3 - PMHx: 12:14 Diabetes - IDDM; Diabetes - NIDDM; CVA; Atrial Fib; angina pectoris; Hypertension; jd3 Pacemaker; - PSHx: 12:14 right knee; jd3 - Immunization history:: Adult Immunizations up to date, Client reports receiving the 2nd dose of the Covid vaccine, Flu vaccine is not up to date. - Social history:: Smoking status: Patient reports the use of cigarette tobacco products, cigars. Screenin:35 Abuse screen: Denies threats or abuse. Denies injuries from another. Nutritional jl7 screening: No deficits noted. Tuberculosis screening: No symptoms or risk factors identified. Fall Risk None identified. Assessment: 12:35 General: Appears in no apparent distress. uncomfortable, Behavior is calm, cooperative, jl7 appropriate for age. Pain: Complains of pain in right leg and right knee Pain currently is 8 out of 10 on a pain scale. Neuro: Level of Consciousness is awake, alert, obeys commands, Oriented to person, place, time, situation. Cardiovascular: Patient's skin is warm and dry. Respiratory: Airway is patent Respiratory effort is even, unlabored, Respiratory pattern is regular, symmetrical. Derm: Skin is pink, warm \\T\\ dry. Musculoskeletal: Swelling present in right leg. 17:30 General: Appears in no apparent distress. Behavior is calm, cooperative, appropriate tw5 for age. Pain: Pain currently is 5 out of 10 on a pain scale. Derm: Skin is pink, warm \\T\\ dry. red, Skin temperature is warm swelling to l knee and lower ext. Vital Signs: 12:15 BP 119 / 67; Pulse 86; Resp 18 S; Temp 97.9(TE); Pulse Ox 98% on R/A; Weight 98.88 kg jd3 (R); Height 6 ft. 0 in. (182.88 cm) (R); Pain 8/10; 17:00 BP 106 / 49; Pulse 74; Resp 17; Pulse Ox 98% ; tw5 12:15 Body Mass Index 29.57 (98.88 kg, 182.88 cm) jd3 ED Course: 11:47 Patient arrived in ED. am2 11:47 Dulce Shah is Private Physician. am2 12:06 aSndip Christian DO is Attending Physician. ms3 12:13 Triage completed. jd3 12:16 Arm band placed on. jd3 12:22 Isabel Avila RN is Primary Nurse. jl7 12:35 Patient has correct armband on for positive identification. jl7 13:22 Knee Right 3 View XRAY In Process Unspecified. EDMS 15:12 Extremity Venous Uni Ltd US In Process Unspecified. EDMS 15:31 Ferdinand Soares is Hospitalizing Provider. ms3 17:20 Inserted saline lock: 18 gauge in left antecubital area, using aseptic technique. Blood tw5 collected. 19:11 Primary Nurse role handed off by Isabel Avila, JUDSON mw2 20:25 No provider procedures requiring assistance completed. Patient admitted, IV remains in ld1 place. Administered Medications: 12:35 Drug: HYDROcodone-acetaminophen 5 mg-325 mg 1 tabs Route: PO; jl7 17:29 Drug: vancoMYCIN 1 grams Route: IVPB; Infused Over: 2 hrs; Site: left antecubital; tw5 Medication: 20:26 VIS not applicable for this client. ld1 Outcome: 15:33 Decision to Hospitalize by Provider. ms3 20:26 Admitted to Med/surg accompanied by tech, via wheelchair, room 405, with chart, Report ld1 called to JUDSON Pederson 20:26 Condition: stable 20:26 Instructed on the need for admit. 21:13 Patient left the ED. ld1 Signatures: Dispatcher [employer] EDMS Isabel Avila, RN RN jl7 Geovanna De Dios am2 Chris Castrejon RN RN jd3 Iva Palacios 2 Sandip Christian, DO DO ms3 Chelly Mckoy RN RN ld1 Samina Garnett tw5
--- NOTE | 2021-06-30 15:34 | EDPHYS ---
Physician Documentation [facility] Name: Ely Coley Age: 76 yrs Sex: Male : 1945 Arrival Date: 06/30/2021 Time: 11:47 Bed 16 Private MD: Dulce Shah ED Physician Sandip Christian HPI: 06/30 12:23 This 76 yrs old Male presents to ER via Wheelchair with complaints of Fall Injury, Knee ms3 Pain, Leg Swelling. 12:23 Details of fall: The patient fell from an upright position, while standing. Onset: The ms3 symptoms/episode began/occurred 1 week(s) ago. Associated injuries: The patient sustained Right knee. Severity of symptoms: At their worst the symptoms were severe, in the emergency department the symptoms are unchanged. Patient states he had a knee replacement 14-15 years ago. Historical: - Allergies: 12:14 metformin; jd3 12:14 Glucophage; jd3 - PMHx: 12:14 Diabetes - IDDM; Diabetes - NIDDM; CVA; Atrial Fib; angina pectoris; Hypertension; jd3 Pacemaker; - PSHx: 12:14 right knee; jd3 - Immunization history:: Adult Immunizations up to date, Client reports receiving the 2nd dose of the Covid vaccine, Flu vaccine is not up to date. - Social history:: Smoking status: Patient reports the use of cigarette tobacco products, cigars. ROS: 12:23 Constitutional: Negative for fever, and chills. Neck: Negative for injury, pain, and ms3 swelling, Cardiovascular: Negative for chest pain, and palpitations. Respiratory: Negative for shortness of breath, cough, wheezing, and pleuritic chest pain, Abdomen/GI: Negative for abdominal pain, nausea, vomiting, diarrhea, and constipation, Psych: Negative for depression, anxiety, suicide ideation, homicidal ideation, and hallucinations. 12:23 MS/extremity: Positive for abrasion, erythema, swelling. 12:23 Skin: Positive for erythema, rash. 12:23 All other systems are negative. Exam: 12:23 Constitutional: This is a well developed, well nourished patient who is awake, alert, ms3 and in no acute distress. Chest/axilla: Normal chest wall appearance and motion. Nontender with no deformity. Cardiovascular: Regular rate and rhythm with a normal S1 and S2. No gallops, murmurs, or rubs. Normal PMI, no JVD. No pulse deficits. Respiratory: Lungs have equal breath sounds bilaterally, clear to auscultation and percussion. No rales, rhonchi or wheezes noted. No increased work of breathing, no retractions or nasal flaring. Abdomen/GI: Soft, non-tender, with normal bowel sounds. No distension or tympany. No guarding or rebound. No evidence of tenderness throughout. 12:23 Musculoskeletal/extremity: Extremities: noted in the right knee: pain, swelling. 12:23 Skin: injury, abrasion(s), small abrasion noted, of the Right knee. Vital Signs: 12:15 BP 119 / 67; Pulse 86; Resp 18 S; Temp 97.9(TE); Pulse Ox 98% on R/A; Weight 98.88 kg jd3 (R); Height 6 ft. 0 in. (182.88 cm) (R); Pain 8/10; 17:00 BP 106 / 49; Pulse 74; Resp 17; Pulse Ox 98% ; tw5 12:15 Body Mass Index 29.57 (98.88 kg, 182.88 cm) jd3 MDM: 12:18 Patient medically screened. ms3 16:33 Differential diagnosis: abrasion, fracture, sprain, strain. Data reviewed: vital signs, ms3 nurses notes, lab test result(s), radiologic studies, plain films. Data interpreted: Pulse oximetry: on room air is 98 %. Interpretation: normal. Counseling: I had a detailed discussion with the patient and/or guardian regarding: the historical points, exam findings, and any diagnostic results supporting the discharge/admit diagnosis, lab results, radiology results, the need for further work-up and treatment in the hospital. ED course: Discussed case with Dr Soares and he accepts patient as admission. Discussed plan with patient and he understands/ agrees with plan. All questions answered. Patient remains in stable condition in the ED.. 06/30 14:51 Order name: CBC with Diff ms3 06/30 14:51 Order name: BMP ms3 06/30 15:59 Order name: SARS-COV-2 RT PCR EDMS 06/30 19:57 Order name: Blood Culture EDMS 06/30 19:59 Order name: Glucose, Ancillary Testing EDMS 06/30 12:23 Order name: Knee Right 3 View XRAY; Complete Time: 14:42 ms3 06/30 14:51 Order name: Extremity Venous Uni Ltd US; Complete Time: 15:24 ms3 06/30 16:08 Order name: Labs - recollect needed: recollect green and lavender top.; Complete Time: bd 17:37 06/30 20:13 Order name: CBC Smear Scan EDMS Administered Medications: 12:35 Drug: HYDROcodone-acetaminophen 5 mg-325 mg 1 tabs Route: PO; jl7 17:29 Drug: vancoMYCIN 1 grams Route: IVPB; Infused Over: 2 hrs; Site: left antecubital; tw5 Disposition Summary: 06/30/21 15:33 Hospitalization Ordered Hospitalization Status: Inpatient Admission ms3 Provider: Ferdinand Soares ms3 Location: Telemetry/MedSurg (Inpatient) ms3 Condition: Stable ms3 Problem: new ms3 Symptoms: are unchanged ms3 Bed/Room Type: Standard ms3 Room Assignment: 405(06/30/21 19:43) Diagnosis - Cellulitis of right lower limb ms3 Forms: - Medication Reconciliation Form ms3 - SBAR form ms3 Signatures: Dispatcher [employer] EDMS Shena Gonzalez Martha RN RN mw Isabel Avila RN RN jl7 Chris Castrejon RN RN jd3 Sandip Christian DO DO ms3 Samina Garnett tw5 Corrections: (The following items were deleted from the chart) 15:59 15:21 COVID 19 CPL+MR.LAB.BRZ ordered. EDMS EDMS 19:43 15:33 ms3 mw
[2021-06-30] MEDS ORDERED: VANCOMYCIN 1 GM/VIAL ONE (16:26)
[2021-06-30] MEDS ORDERED: NA CHLORIDE 0.9% 250 ML ONE ×2 (16:26→23:28)
--- NOTE | 2021-06-30 16:43 | P.HP ---
Certification for Inpatient Patient admitted to: Inpatient With expected LOS: >2 Midnights Practitioner: I am a practitioner with admitting privileges, knowledge of patient current condition, hospital course, and medical plan of care. Services: Services provided to patient in accordance with Admission requirements found in Title 42 Section 412.3 of the Code of Federal Regulations Patient History Date of Service: 06/30/21 Reason for admission: Painful swelling and redness of right leg History of Present Illness: 76-year-old gentleman with a history of peripheral vascular disease, diabetes mellitus, diabetic foot ulcer status post multiple toe amputations presented to the emergency department due to pain, redness and swelling of the right leg. Patient has chronic bilateral lower extremity edema. He states that he fell on his right knee about 5 days ago. He sustained a bruise on the knee, later followed by swelling and redness which progressed to involve the right leg. Patient recently had his left third toe amputated after left angioplasty in [place] and he just completed a course of doxycycline yesterday. CBC and blood chemistry are pending. Patient is admitted for further management of cellulitis which has failed outpatient antibiotic therapy. Allergies metformin [From Glucophage] Allergy (Verified 06/19/20 11:25) Passed out metoprolol Adverse Reaction (Verified 06/19/20 11:25) Passed out steroids Allergy (Unknown, Uncoded 06/19/20 11:25) Unknown Home Medications: Amiodarone HCl [Cordarone*] 200 mg PO DAILY 10/19/17 Apixaban [Eliquis *] 2.5 mg PO BID 10/19/17 Spironolactone [Aldactone*] 25 mg PO BID 10/19/17 glipiZIDE [Glipizide] 5 mg PO DAILY 10/19/17 Mens Multivitamin 1 tab PO DAILY 05/09/20 Vit C/E/Zn/Coppr/Lutein/Zeaxan [Preservision Areds 2 Softgel] 1 cap PO BID 05/09/20 Gabapentin [Neurontin*] 100 mg PO TID #90 cap 06/15/20 Sertraline HCl 25 mg PO DAILY 05/27/21 - Past Medical/Surgical History Diabetic: Yes -: History CVA -: Atrial fibrillation now with pacemaker -: DM -: HTN -: History of blood clot in the right arm -: GERD -: Moderate pulmonary hypertension -: CHF, diastolic dysfunction -: R. total knee replacement -: kristian. cataract sx -: Right thigh staph inf. -: L. big toe amputated -: Back sx Psychosocial/ Personal History: The patient is . - Family History Mother -: Heart disease Father -: Heart disease Brother -: Heart disease, Hypertension, Diabetes, Cancer - Social History Alcohol use: No CD- Drugs: No Caffeine use: Yes Review of Systems Other: Except as documented, all other systems reviewed and negative. Physical Examination - Physical Exam General: Alert, In no apparent distress, Oriented x3, Obese HEENT: PERRLA, Mucous membr. moist/pink, Sclerae nonicteric Neck: Supple, JVD not distended Respiratory: Clear to auscultation bilaterally, Normal air movement Cardiovascular: Normal S1 S2, Edema (Bilateral legs), Irregular heart rat e/rhythm Capillary refill: <2 Seconds Gastrointestinal: Normal bowel sounds, Soft and benign, Non-distended, No tenderness Musculoskeletal: Other (Bilateral lower extremity venous stasis dermatitis) Integumentary: Erythema (Right leg), Other (Healing bruise on the right knee) Neurological: Normal speech, Normal strength at 5/5 x4 extr, Cranial nerves 3-12 intact Lymphatics: No axilla or inguinal lymphadenopathy Assessment and Plan - Problems (Diagnosis) (1) Lower extremity edema Current Visit: Yes Status: Acute (2) Peripheral vascular disease Current Visit: No Status: Acute (3) Venous stasis dermatitis Current Visit: No Status: Acute (4) A-fib Onset Date: 08/28/15 Current Visit: No Status: Chronic Qualifiers: (5) Diabetes mellitus Onset Date: 11/29/17 Current Visit: No Status: Chronic (6) Obesity (BMI 30-39.9) Current Visit: No Status: Chronic - Plan Admit patient to the medical floor. We will start aggressive antibiotic therapy with IV vancomycin and IV cefepime. Obtain blood culture CBC and BMP are pending to be followed. IV Lasix for peripheral edema. Insulin sliding scale for glucose management. Elevation of the lower extremities. Continue Eliquis and amiodarone for A. fib. Left third toe amputation wound is healing appropriately. - Advance Directives Does patient have a Living Will: No Does patient have a Durable POA for Healthcare: Yes
[2021-06-30 17:23] LABS: Absolute Lymphocytes (CBC) 1.7 K/uL (0.7-4.9); Hematocrit 31.3 % (39.6-49.0); Lymphocytes % 18.7 % (15.3-44.8); MPV 7.5 fL (7.6-11.3); RBC Red Blood Cell Count 3.24 M/uL (4.33-5.43)
[2021-06-30] MEDS ORDERED: ONDANSETRON 4 MG/2 ML VIAL IV PRN (18:59)
[2021-06-30] MEDS: VANCOMYCIN 1 GM in NA CHLORIDE 0.9% 250 ML IVPB SCH ×2 (18:59→21:00)
[2021-06-30] MEDS ORDERED: ACETAMINOPHEN 500 MG TAB PO PRN (18:59)
[2021-06-30] MEDS: INSULIN -REGULAR HUMAN 50 UNIT/0.5 ML ML SQ SCH (18:59)
[2021-06-30] MEDS ORDERED: MORPHINE 2 MG/ML SYR IV PRN (18:59)
[2021-06-30] MEDS ORDERED: VANCOMYCIN 750 MG in NA CHLORIDE 0.9% 150 ML IVPB SCH (19:30)
[2021-06-30 20:12] LABS: Anisocytosis 1+; Blood Morphology Comment NOTED (NOT SEEN); Platelet Estimate ADEQ; Poikilocytosis 1+; White Blood Cell Scan OK (OK)
[2021-06-30] MEDS ORDERED: APIXABAN 2.5 MG TABLET PO SCH (21:00)
--- NOTE | 2021-06-30 22:21 | P.PN ---
Date of Service: 07/01/21 Subjective: slight improvement of redness/swelling per patient no new complaints ROS: 10 point RoS as noted above, otherwise negative Physical Exam General: Alert, NAD HEENT: EOMI, sclera anicteric Respiratory: Clear to auscultation bilaterally, Normal air movement Cardiovascular: Edema (Bilateral legs with R >>L), Irregular heart rate/rhythm Gastrointestinal: soft, nontender, nondistended Musculoskeletal: Other (Bilateral lower extremity venous stasis dermatitis) Integumentary: Erythema of RLE from knee to foot, old ecchymosis of R knee; b/l lower extremity venous stasis dermatitis L 3rd digit: s/p amputation, site healing well, sutur Problem List RLE cellulitis, failed outpatient therapy b/l lower extremity edema h/o peripheral vascular disease s/p angioplasty / amputations Afib, chronic DM2, insulin dependent s/p course of doxy as outpatient vanc/cefepime - started 06/30 on admission f/u blood cultures ID consulted, recommend de-escalation to Ancef for ~2 days IV Lasix for peripheral edema. Insulin sliding scale for glucose management. Elevation of the lower extremities. Continue Eliquis and amiodarone for A. fib. Left third toe amputation wound is healing appropriately. ok to remove sutures VTE: home eliquis (anticoagulation) Code: full Dispo: home, ~2 days
[2021-06-30 23:04] LABS: Urine Appearance CLEAR (Clear); Urine Bilirubin NEGATIVE (Negative); Urine Blood NEGATIVE (Negative); Urine Color YELLOW (Yellow); Urine Glucose NEGATIVE (Negative)
[2021-06-30 23:05] LABS: Urine Microscopic Reflex NO UMIC; Urine Protein NEGATIVE (Negative); Urine Urobilinogen 0.2 mg/dL (0.2-1.0); Urine pH 5.5 (5.0-7.0)
[2021-06-30 23:07] VITALS: BMI 30.3
[2021-06-30] MEDS ORDERED: VANCOMYCIN 500 MG/VIAL ONE (23:27)
[2021-07-01] MEDS: CEFEPIME 1 GM in NA CHLORIDE 0.9% 100 ML IV SCH ×2 (00:15→10:06)
[2021-07-01] MEDS: INSULIN -REGULAR HUMAN 50 UNIT/0.5 ML ML SQ SCH ×6 (00:16→22:11)
[2021-07-01] MEDS: FUROSEMIDE 40 MG/4 ML VIAL IV SCH ×3 (00:16→16:39)
[2021-07-01 05:25] LABS: Absolute Lymphocytes (CBC) 1.2 K/uL (0.7-4.9); Hematocrit 31.2 % (39.6-49.0); Lymphocytes % 12.9 % (15.3-44.8); MPV 7.2 fL (7.6-11.3)
[2021-07-01 05:41] LABS: Magnesium 1.5 mg/dL (1.8-2.4); Phosphorus 2.6 mg/dL (2.5-4.9)
[2021-07-01 05:56] LABS: Protime INR 1.45
[2021-07-01] MEDS ORDERED: Magnesium Sulfate 2gm IVPB 2 G/50 ML BAG IV ONE (07:49)
[2021-07-01] MEDS ORDERED: AMIODARONE HCL 200 MG TAB PO SCH (09:00)
[2021-07-01] MEDS: ENOXAPARIN 40 MG/0.4 ML SQ SCH (10:05)
--- NOTE | 2021-07-01 11:14 | P.CNS ---
Date of Consult: 07/01/21 Chief Complaint: Painful swelling and redness of right leg History of Present Illness: The patient is a 76-year-old male with a past medical history significant of peripheral vascular disease status post vascular intervention on right leg approximately a year and a half ago, and vascular intervention on the left leg approximately 6 weeks to 1 month ago and left third toe distal phalanx amputation during the same hospitalization, diabetes, and chronic bilateral lower extremity lymphedema/stasis dermatitis who presented to the emergency department secondary to right leg erythema, pain, and warmth to touch. Patient states that his symptoms have been ongoing for the past 9 to 10 days. He for started noticing symptoms after he fell on his right knee. He was prescribed oral doxycycline which he took without resolution of his symptoms. Patient was empirically started on vancomycin and cefepime on 07/01. WBC within normal range, patient afebrile and hemodynamically stable. Hyperglycemic on [id number] blood glucose tests. Unknown what patient's last hemoglobin A1c was. X-ray of right knee showed soft tissue edema with no acute fracture/abscess formation. Venous Doppler negative for DVT. Infectious disease has been consulted managing patient's antibiotic regimen. Patient currently denies nausea/vomiting/shortness of breath/chest pain/pain to bilateral lower extremities. Allergies metformin [From Glucophage] Allergy (Verified 06/19/20 11:25) Passed out metoprolol Adverse Reaction (Verified 06/19/20 11:25) Passed out steroids Allergy (Unknown, Uncoded 06/19/20 11:25) Unknown Home Medications: Amiodarone HCl [Cordarone*] 200 mg PO DAILY 10/19/17 Apixaban [Eliquis *] 2.5 mg PO BID 10/19/17 Spironolactone [Aldactone*] 25 mg PO BID 10/19/17 glipiZIDE [Glipizide] 5 mg PO DAILY 10/19/17 Mens Multivitamin 1 tab PO DAILY 05/09/20 Vit C/E/Zn/Coppr/Lutein/Zeaxan [Preservision Areds 2 Softgel] 1 cap PO BID 05/09/20 Sertraline HCl 25 mg PO DAILY 05/27/21 Gabapentin [Neurontin*] 100 mg PO BID 07/01/21 - Past Medical/Surgical History Diabetic: Yes -: History CVA -: Atrial fibrillation now with pacemaker -: DM -: HTN -: PVD -: GERD -: Moderate pulmonary hypertension -: CHF, diastolic dysfunction -: R. total knee replacement -: kristian. cataract sx -: Right thigh staph inf. -: L. big toe amputated -: Back sx Psychosocial/ Personal History: The patient is . - Family History Mother Medical History: Heart disease Father Medical History: Heart disease Brother Medical History: Heart disease, Hypertension, Diabetes, Cancer - Social History Smoking Status: Unknown if ever smoked Alcohol use: No CD- Drugs: No Caffeine use: No Place of Residence: Home Review of Systems 10-point ROS is otherwise unremarkable Physical Examination Temp Pulse Resp BP Pulse Ox 97.6 F 91 H 16 125/70 97 07/01/21 07:52 07/01/21 10:06 07/01/21 07:52 07/01/21 10:06 07/01/21 07:52 General: Alert, In no apparent distress, Obese HEENT: Atraumatic, Normocephalic Neck: Supple, 2+ carotid pulse no bruit Respiratory: Clear to auscultation bilaterally, Normal air movement Cardiovascular: Regular rate/rhythm, Normal S1 S2 Capillary refill: <2 Seconds Gastrointestinal: Normal bowel sounds, Hypoactive, Soft and benign Musculoskeletal: No clubbing, No swelling, No contractures Integumentary: Other (Bilateral lower extremity edema, right greater than left. Bilateral chronic skin changes associated with stasis dermatitis. Right leg slightly erythematous.) Conclusions/Impression: Antibiotics: Cefazolin: 07/01current Vancomycin: 06/27-06/2023 Cefepime: 06/27-06/2023 Assessment/plan Right lower extremity cellulitis No purulent drainage noted on physical exam Recommend continuing IV cefazolin 1-2 more days. Then discharged on p.o. medication such as Augmentin Bilateral lower extremity stasis dermatitis with lymphedema Educated patient importance of keeping his legs elevated Diabetes Hyperglycemic on most recent [id number] blood glucose test. Unknown what patient's last hemoglobin A1c is. Educated patient on importance of strict glucose monitoring for proper infection control/wound healing Anemia Continue to monitor H&H. Recent left third toe distal phalanx amputation Sutures removed at our facility on 07/01. Area is clean dry and intact with no clinical signs of infection Plan of care discussed with Dr. Umanzor Thank you for consultation
[2021-07-01] MEDS ORDERED: VANCOMYCIN 1.75 GM in NA CHLORIDE 0.9% 500 ML IVPB SCH (22:00)
[2021-07-01] MEDS: CEFAZOLIN 2 GM IN 0.9% NACL 2 GM/100 ML BAG IVPB SCH (22:10)
[2021-07-02 05:52] LABS: Hematocrit 31.2 % (39.6-49.0); MPV 7.3 fL (7.6-11.3); RBC Red Blood Cell Count 3.18 M/uL (4.33-5.43)
[2021-07-02 06:13] LABS: Albumin 2.7 g/dL (3.4-5.0); Bilirubin Total 0.5 mg/dL (0.2-1.0); Magnesium 1.8 mg/dL (1.8-2.4); Potassium 3.9 mmol/L (3.5-5.1); Protein, Total 6.6 g/dL (6.4-8.2)
[2021-07-02] MEDS ORDERED: MAGNESIUM SULFATE 1 gm IVPB 1 GM/100 ML BAG IV ONE (06:37)
[2021-07-02] MEDS ORDERED: POTASSIUM 25 MEQ EFFERV TAB PO ONE (06:38)
[2021-07-02] MEDS: INSULIN -REGULAR HUMAN 50 UNIT/0.5 ML ML SQ SCH ×4 (07:30→21:00)
[2021-07-02] MEDS: CEFAZOLIN 2 GM IN 0.9% NACL 2 GM/100 ML BAG IVPB SCH ×2 (10:44→20:57)
[2021-07-02] MEDS: ENOXAPARIN 40 MG/0.4 ML SQ SCH (10:49)
--- NOTE | 2021-07-02 15:41 | P.PN ---
Subjective Date of Service: 07/02/21 Chief Complaint: Painful swelling and redness of right leg Patient seen and examined at bedside, doing well. Denies pain. Swelling to right lower extremity has decreased. Review of Systems 10-point ROS is otherwise unremarkable Physical Examination - Vital Signs Temperature: 97.5 F Blood Pressure: 149/73 Pulse: 78 Respirations: 18 Pulse Ox (%): 98 - Studies Laboratory Last Values SARS-CoV-2 Rap RNA(RT-PCR) Negative (NEGATIVE) 06/30/21 15:46 Assessment And Plan - Plan Physical Exam: General: Alert, In no apparent distress, Obese HEENT: Atraumatic, Normocephalic Neck: Supple, 2+ carotid pulse no bruit Respiratory: Clear to auscultation bilaterally, Normal air movement Cardiovascular: Regular rate/rhythm, Normal S1 S2 Capillary refill: <2 Seconds Gastrointestinal: Normal bowel sounds, Hypoactive, Soft and benign Musculoskeletal: No clubbing, No swelling, No contractures Integumentary: Other (Bilateral lower extremity edema, right greater than left. Bilateral chronic skin changes associated with stasis dermatitis. Right leg slightly erythematous.) Conclusions/Impression: Antibiotics: Cefazolin: 07/01current Vancomycin: 06/27-06/2023 Cefepime: 06/27-06/2023 Assessment/plan Right lower extremity cellulitis No purulent drainage noted on physical exam Recommend continuing IV cefazolin 1-2 more days. Then discharged on p.o. medication such as Augmentin Bilateral lower extremity stasis dermatitis with lymphedema Educated patient importance of keeping his legs elevated Diabetes Hyperglycemic on most recent [id number] blood glucose test. Unknown what patient's last hemoglobin A1c is. Educated patient on importance of strict glucose monitoring for proper infection control/wound healing Anemia Continue to monitor H&H. Recent left third toe distal phalanx amputation Sutures removed at our facility on 07/01. Area is clean dry and intact with no clinical signs of infection Plan of care discussed with Dr. Umanzor Thank you for consultation
--- NOTE | 2021-07-02 17:12 | P.PN ---
Date of Service: 07/02/21 Subjective: continued improvement of erythema and swelling no new issues/complaints ROS: 10 point RoS as noted above, otherwise negative Physical Exam General: Alert, NAD HEENT: EOMI, sclera anicteric Respiratory: Clear to auscultation bilaterally, Normal air movement Cardiovascular: Edema (Bilateral legs with 1+ R >> trace L), Irregular heart rate/rhythm Gastrointestinal: soft, nontender, nondistended Integumentary: old ecchymosis of R knee; b/l lower extremity venous stasis dermatitis L 3rd digit: s/p amputation, site healing well, sutures removed Problem List RLE cellulitis, failed outpatient therapy b/l lower extremity edema (R > L) h/o peripheral vascular disease s/p angioplasty / amputations Afib, chronic DM2, insulin dependent DARRELL s/p course of doxy as outpatient vanc/cefepime - started 06/30 on admission ID consulted, recommended de-escalation to Ancef for ~2 days, started 07/01 edema improving, R>L secondary to cellulitis Insulin sliding scale for glucose management. Elevation of the lower extremities. Continue Eliquis and amiodarone for A. fib. Left third toe amputation wound is healing appropriately. 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
[2021-07-02] MEDS: GABAPENTIN 100 MG CAP PO SCH (20:57)
[2021-07-02 22:49] VITALS: O2SAT 98
[2021-07-03 04:20] LABS: Magnesium 1.8 mg/dL (1.8-2.4)
[2021-07-03] MEDS: INSULIN -REGULAR HUMAN 50 UNIT/0.5 ML ML SQ SCH (07:30)
--- NOTE | 2021-07-03 08:31 | P.DS ---
Admission Date: 06/30/21 Discharge Date: 07/03/21 Disposition: ROUTINE DISCHARGE Discharge Condition: GOOD Reason for Admission: Painful swelling and redness of right leg Consultations: Infectious Disease - Dr. Umanzor Procedures: Problem List RLE cellulitis, failed outpatient therapy b/l lower extremity edema (R > L) h/o peripheral vascular disease s/p angioplasty / amputations Afib, chronic DM2, insulin dependent DARRELL Brief History of Present Illness: 76yo M, PMH: PVD, DM2, diabetic foot ulcer s/p multiple toe amputations presented to ED due to pain, redness, and swelling of right leg. Patient has chronic bilateral lower extremity edema. He states that he fell on his right knee about 5 days ago. He sustained a bruise on the knee, later followed by swelling and redness which progressed to involve the lower right leg. Patient recently had his left third toe amputated after left angioplasty in [place] and he just completed a course of doxycycline yesterday. Hospital Course: Patient was treated for right lower extremity cellulitis. Received a dose of vancomycin and cefepime in the ER and transitioned to IV ancef. He had continued improvement of his symptoms. He remained afebrile and blood cultures were negative. Patient was deemed stable for discharge home. Prescribed Augmentin per ID recommendations for 8 more days, to complete 10 day course. reported Augmentin doesn't work for the patient, so this was changed to Keflex. Recommend daily probiotic use while taking antibiotics - lactobacillus which can be found over the counter. Follow up with PCP within 1 week. Vital Signs/Physical Exam: Temp Pulse Resp BP Pulse Ox 99.0 F 84 17 110/51 L 97 07/03/21 04:00 07/03/21 04:00 07/03/21 04:00 07/03/21 04:00 07/03/21 04:00 Physical Exam General: Alert, NAD HEENT: EOMI, sclera anicteric Respiratory: Clear to auscultation bilaterally, Normal air movement Cardiovascular: trace bilateral lower extremity edema, Irregular heart rate/rhythm Gastrointestinal: soft, nontender, nondistended Integumentary: old ecchymosis of R knee; b/l lower extremity venous stasis dermatitis L 3rd digit: s/p amputation, site healing well, sutures removed Laboratory Data at Discharge: WBC 9.5 K/uL (4.3-10.9) 07/02/21 05:35 Hgb 10.3 g/dL (13.6-17.9) L 07/02/21 05:35 Hct 31.2 % (39.6-49.0) L 07/02/21 05:35 Plt Count 166 K/uL (152-406) 07/02/21 05:35 PT 16.1 SECONDS (9.5-12.5) H 07/01/21 05:03 INR 1.45 07/01/21 05:03 Sodium 139 mmol/L (136-145) 07/03/21 03:24 Potassium 4.0 mmol/L (3.5-5.1) 07/03/21 03:24 BUN 25 mg/dL (7-18) H 07/03/21 03:24 Creatinine 1.27 mg/dL (0.55-1.3) 07/03/21 03:24 Glucose 159 mg/dL (74-106) H 07/03/21 03:24 Phosphorus 2.6 mg/dL (2.5-4.9) 07/01/21 05:03 Magnesium 1.8 mg/dL (1.8-2.4) 07/03/21 03:24 Total Bilirubin 0.5 mg/dL (0.2-1.0) 07/02/21 05:35 AST 9 U/L (15-37) L 07/02/21 05:35 ALT 15 U/L (12-78) 07/02/21 05:35 Alkaline Phosphatase 131 U/L (45-117) H 07/02/21 05:35 Home Medications: Amiodarone HCl [Cordarone*] 200 mg PO DAILY 10/19/17 Apixaban [Eliquis *] 2.5 mg PO BID 10/19/17 Spironolactone [Aldactone*] 25 mg PO BID 10/19/17 glipiZIDE [Glipizide] 5 mg PO DAILY 10/19/17 Mens Multivitamin 1 tab PO DAILY 05/09/20 Vit C/E/Zn/Coppr/Lutein/Zeaxan [Preservision Areds 2 Softgel] 1 cap PO BID 05/09/20 Sertraline HCl 25 mg PO DAILY 05/27/21 Gabapentin [Neurontin*] 100 mg PO BID 07/01/21 Cephalexin [Keflex] 500 mg PO Q6HR 8 Days #32 cap 07/03/21 New Medications: Cephalexin [Keflex] 500 mg PO Q6HR 8 Days #32 cap Followup: Dulce Shah NP [Primary Care Provider] - 1-2 Weeks Time spent managing pt's care (in minutes): 45
[2021-07-03] MEDS: CEFAZOLIN 2 GM IN 0.9% NACL 2 GM/100 ML BAG IVPB SCH (09:00)
[2021-07-03] MEDS ORDERED: SERTRALINE HCL 50 MG TAB PO SCH (09:00)
[2021-07-03] MEDS: ENOXAPARIN 40 MG/0.4 ML SQ SCH (10:20)
[2021-07-03] MEDS: GABAPENTIN 100 MG CAP PO SCH (10:21)
--- NOTE | 2021-07-03 11:23 | P.PN ---
Subjective Date of Service: 07/03/21 Chief Complaint: Painful swelling and redness of right leg Patient seen and examined at bedside, plan for DC. Review of Systems 10-point ROS is otherwise unremarkable Physical Examination - Vital Signs Temperature: 97.1 F Blood Pressure: 113/60 Pulse: 76 Respirations: 18 Pulse Ox (%): 98 - Studies Laboratory Last Values SARS-CoV-2 Rap RNA(RT-PCR) Negative (NEGATIVE) 06/30/21 15:46 Assessment And Plan - Plan Physical Exam: General: Alert, In no apparent distress, Obese HEENT: Atraumatic, Normocephalic Neck: Supple, 2+ carotid pulse no bruit Respiratory: Clear to auscultation bilaterally, Normal air movement Cardiovascular: Regular rate/rhythm, Normal S1 S2 Capillary refill: <2 Seconds Gastrointestinal: Normal bowel sounds, Soft and benign Musculoskeletal: No clubbing, No swelling, No contractures Integumentary: Other (Bilateral lower extremity edema, right greater than left. Bilateral chronic skin changes associated with stasis dermatitis. Right leg slightly erythematous.) Conclusions/Impression: Antibiotics: Cefazolin: 07/01current Vancomycin: 06/27-06/2023 Cefepime: 06/27-06/2023 Assessment/plan Right lower extremity cellulitis No purulent drainage noted on physical exam DC on oral kflex Bilateral lower extremity stasis dermatitis with lymphedema Educated patient importance of keeping his legs elevated Diabetes Hyperglycemic on most recent [id number] blood glucose test. Unknown what patient's last hemoglobin A1c is. Educated patient on importance of strict glucose monitoring for proper infection control/wound healing Anemia Continue to monitor H&H. Recent left third toe distal phalanx amputation Sutures removed at our facility on 07/01. Area is clean dry and intact with no clinical signs of infection Plan of care discussed with Dr. Umanzor Thank you for consultation
[2021-07-03 12:47] VITALS: BP 137/69; TEMP 97
== END 2021-07-03 11:30 | disposition home or self-care (01) | DRG 603 ==
LOC: ER 11:46 → ERHOLD 16:26 → 4TH 20:36
PROVIDERS: ADMIT Internal Medicine; ATTEND Internal Medicine
DX: L03.115 Cellulitis of right lower limb (principal); I50.32 Chronic diastolic (congestive) heart failure; N17.9 Acute kidney failure, unspecified; I48.91 Unspecified atrial fibrillation; I11.0 Hypertensive heart disease with heart failure; I87.2 Venous insufficiency (chronic) (peripheral); D64.9 Anemia, unspecified; E11.65 Type 2 diabetes mellitus with hyperglycemia; E66.9 Obesity, unspecified; Z68.30 Body mass index [BMI] 30.0-30.9, adult; E11.51 Type 2 diabetes mellitus with diabetic peripheral angiopathy without gangrene; Z89.422 Acquired absence of other left toe(s); Z86.73 Personal history of transient ischemic attack (TIA), and cerebral infarction without residual deficits; Z96.651 Presence of right artificial knee joint; Z95.0 Presence of cardiac pacemaker; Z20.822 Contact with and (suspected) exposure to COVID-19
CPT/HCPCS: 36415; 80048; 80053; 81003; 82947; 83735; 84100; 85025; 85027; 85610; 87040; 93971; 94760; 96374; 99285; J0690; J0692; J1650; J1815; J1940; J3370; J3475; J7040; J7050; U0003

== ENCOUNTER 2021-08-01 12:44 | Emergency (ER) | payer OTHER ==
--- OUTSIDE RECORDS SUMMARY | 2021-08-01 12:56 | XMS REPORT | Continuity of Care Document ---
:1945 Author Organization [facility] t Address [address] [place] [address] Care Team Providers Name Role Phone Emiliano [...] Effective Date Expiration Date Juanita SHELTON DUAL [id number] COMPLETE SNP [facility] ZZZO-MEDICARE - [id number] [facility] CIGNA MEDICARE - [id number] RNPO PCP TOTALCARE SNP [id number] 2016 MEDICARE O-CIGNA 00:00:00 WELLMED MEDICARE [id number] 2021 00:00:00 CIG CAS [employer] SystemsMIAMI [id number] 2016 O 00:00:00 Problems Condition Condition Condition Status Onset Resolution Last Treating Co mments Source Name Details Category Date Date Treatment Clinician Date Status Status Disease Active [facility] post post 5-12 College amputation amputation 00:00: [...] 00 Medicin e Status Status Disease Active [facility] 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 00 Medici n great toe great toe e (HCCode) (HCCode) Post-opera Post-opera Disease Active [facility] tive state 6-25 Co llege 00:00: of 00 Medicin e Encounter Encounter Disease Active [facility] for post for post 625 Colleg e surgical surgical 00:00: of wound wound 00 Medicin check check e PAD PAD Disease Active [facility] (periphera (periphera 6-25 Co llege l artery l artery 00:00: of disease) disease) 00 Medici n (HCCode) (HCCode) e Type 2 Type 2 Disease Active [facility] diabetes diabetes 08-02 Colleg e mellitus mellitus [...] 2-23 [facility]) 00[facility]: Medical 00 [place] Pneumonia Pneumonia Disease Active 2016-[address] [facility]22 [facility] 00[facility] Medical 00 [place] PAROXYSMAL Diagnosis Active 2016-09-14 [facility] AFIB, 08-28 10:10:00 l BRADYCARDI 00:00: Pepe smith A PAROXYSMAL 00 AFIB, BRADYCARDI A Active 08/28/2016 [facility] CCL/DUAL Diagnosis Active 2016-08-31 Tracy maldonado PMAKER 08-28 15:00:00 l IMPLANT/BS CCL/DUAL 00:00: He rmann /DX: PMAKER 00 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 Active 08/28/2016 [facility] 362.56 Diagnosis Active 2014-06-04 Mem [facility]ria EPIRETINAL 02-14 10:13:00 l MEMBRANE 362.56 00:00: Pepe smith LEFT EYE EPIRETINAL 00 MEMBRANE LEFT EYE Active 02/14/2014 [facility] Syncope Problem Resolve 2016-09-15 Mem oria (disorder) d 00:18:55 l Syncope Tino (disorder) Resolved Problem 09/15/2016 [facility] Bradycardi Problem Resolve 2016-09-15 Memoria a d 00:18:55 l (disorder) Pepe n Bradycardi a (disorder) Resolved Problem 09/15/2016 [facility] Chest pain Problem Resolve 2016-09-15 Memoria (finding) d 00:18:55 l Chest Tino pain (finding) Resolved Problem 09/15/2016 [facility] Cerebrovas Problem Resolve 2016-09-15 Memoria cular d 00:18:55 l accident [place] (disorder) Cerebrovas cular accident (disorder) Resolved Problem 09/15/2016 [facility] Dizziness Problem Resolve 2016-09-15 M emoria (finding) d 00:18:55 l [place] Dizziness (finding) Resolved Problem 09/15/2016 [facility] Edema Problem Resolve 2016-09-15 Niko og (finding) d 00:18:55 l Edema [place] (finding) Resolved Problem 09/15/2016 [facility] Allergies, Adverse Reactions, Alerts Allergy Allergy Status Severity Reaction(s) Onset Inactive Treating Comm ents Source Name Type Date Date Clinician Metformi Propensi Active [facility] n ty to 5-18 College adverse 00:00: [...] Center Metoprol Propensi Active Shortness Of 2017-02 [facility] ol ty to Breath 1-13 College adverse 00:00: of reaction 00 Medicin s to e drug NO KNOWN Allergy Active [facility] Family History Family Member Diagnosis Comments Start Date Stop Date Source Natural brother Cancer [facility] Natural brother Diabetes [facility] Natural brother Hypertension [facility] Natural mother Heart disease [facility] Natural sister Hypertension [facility] Social History Social Habit Start Date Stop Date Quantity Comments Source History [facility] [employer] [facility] Non-Med Medical Center History [facility] Housing Places Medical Ce nter Lived Alcohol intake 2021-06-19 2021-06-19 Current [facility] Col lege 00:00:00 00:00:00 non-drinker of of Medicin e alcohol (finding) History [facility] 2021-05-31 2021-05-[address] [facility] [address] [employer] Transport Med 00:00:00 00:00:[address] History [facility] 2021-05-31 2021-05-[address] [facility] [employer] Housing Unable to 00:00:00 00:00:00 Medical Center Pay History [facility] 2021-05-31 2021-05-[address] [facility] [employer] Housing Homeless 00:00:00 00:00:00 Medical Center Last Year Tobacco Comment 2020-06-26 2020-06-26 quit 30 yrs ago [facility] 00:00:00 00:00:00 Medical Center Tobacco use and 2016-12-14 2016-12-14 Smokeless tobacco [employer] [facility] [employer] exposure 00:00:00 00:00:00 non-user of Medicine Social History 2014-03-05 2014-03-05 [facility] 17:12:04 17:12:04 Sex [birth year] [facility] Co [facility] 00:00:00 00:00:00 of Medicine Smoking Status Start Date Stop Date Source Former smoker 2017-01-30 00:00:00 2017-01-30 00:00:00 [facility] Never smoked tobacco [facility] Stew ege of Medicine Medications Ordered Filled [...] of 31 Medicin e doxycycline 2021- Yes [id number] 100mg Take 1 [facility] (ADOXA) 100 5-04 05-15 Tablet by Co llege MG tablet 00:00: 04:59 mouth two of 00 :00 times Medicin daily for e 10 days. mupirocin 2021- Yes 1g QD Apply [address] (BACTROBAN) 06-06 05-06 topically Yuliya kes 2 % 00:00: 23:59 daily for Medical ointment 00 :00 7 days. [place] amiodarone Yes 200mg QD Take [address] (PACERONE) 4-28 mg by [facility] 200 MG 17:01: mouth Medical tablet 40 daily. [place] spironolact Yes 25mg Q.5D Take [address] [facility] [facility] one 4-28 by mouth 2 [facility] (ALDACTONE) 17:01: (two) Medic al 25 MG 40 times Center tablet daily. multivitami Yes 1{capsu QD Take [address] n capsule 4- le} capsule by Luke s 17:01: mouth Medical 40 daily. [place] sertraline Yes 25mg QD Take [address] (ZOLOFT) 25 4-28 by mouth Luke s MG tablet 17:01: daily. Medica l 40 [place] glipiZIDE 2021- No 5mg QD Take [address] [facility] (GLUCOTROL) -28 04-28 by mouth Cl es 10 MG 07:57: 00:00 daily . Medical tablet 25 :00 [place] HYDROcodone Yes 1{tbl} Take [address] -acetaminop 4-28 tablet by Cl es hen (NORCO 00:00: mouth Medica l 5-325) 00 every 6 Center 5-325 mg (six) per tablet hours as needed for Pain. Max Daily Amount: 4 tablets aspirin EC 2022- Yes 81mg Take 81 mg [facility] 81 MG 06-05-29 by mouth. College tablet [...] 200 [facility] (PACERONE) 0-20 mg by [place] 200 MG 13:27: mouth of tablet 32 [...] 200 [facility] (PACERONE) 9-22 mg by [place] 200 MG 09:03: mouth of tablet 58 daily. Medicin e SPIRONOLACT 1-0 Yes Take by [facility] ONE OR 9-22 mouth. [place] 09:03: of 58 Medicin e glipiZIDE 1-0 [...] 200 [facility] (PACERONE) 9-22 mg by [place] 200 MG 09:03: mouth of tablet 58 daily. Medicin e SPIRONOLACT 1-0 Yes Take by [facility] ONE OR 9-22 mouth. [place] 09:03: of 58 Medicin e glipiZIDE 1-0 [...] 200 [facility] (PACERONE) 9-22 mg by [place] 200 MG 09:03: mouth of tablet 58 daily. Medicin e SPIRONOLACT 2020-0 Yes Take by [facility] ONE OR 9-22 mouth. [place] 09:03: of 58 Medicin e glipiZIDE 1-0 [...] 200 [facility] (PACERONE) 9-22 mg by [place] 200 MG 09:03: mouth of tablet 58 daily. Medicin e SPIRONOLACT 2021-0 Yes Take by [facility] ONE OR 10-30 mouth. [place] 09:03: of 58 Medicin e Dabigatran Yes Take by [place] [facility] Etexilate 8- mouth. [place] Mesylate 13:36: of (PRADAXA) 34 Medicin 150 MG CAPS e glipiZIDE 0 Yes 10mg Take 10 mg [facility] (GLUCOTROL) 8- by mouth Stew ege 10 MG 13:36: two times of tablet 34 daily. Medicin e valsartan Yes 320mg Take 320 [place] [facility] (DIOVAN) 8-26 mg by [place] 320 MG 13:36: mouth of tablet 34 daily. Medicin e furosemide Yes 40mg Take 40 mg [facility] (LASIX) 40 10-03 by mouth Colle ge MG tablet 13:36: daily. of 34 Medicin e Apixaban Yes Take by [place] (ELIQUIS) 8- mouth two Colle ge 2.5 MG TABS 13:36: times of 34 daily. Medicin e amiodarone Yes 200mg Take 200 [facility] (PACERONE) 8- mg by [place] 200 MG 13:36: mouth of tablet 34 daily. Medicin e SPIRONOLACT Yes Take by [facility] ONE OR - mouth. [place] 13:36: of 34 Medicin e collagenase Yes [id number] Apply to [facility] 250 UNIT/GM 10-03 [facility] ointment 00:00: wound on of 00 great big Medicin toe amp e site Wound measuremen ts 1.0 cm X 1.0 Cm gabapentin 2020-0 Yes [id number] 100mg Take 1 [facility] (NEURONTIN) 10-03 9107 capsule by Co llege 100 MG 00:00: mouth 3 of capsule 00 times Medicin daily. e doxycycline 0 Yes [id number] 100mg Take 1 [facility] (ADOXA) 100 10-03 Tablet by Col lege MG tablet 00:00: mouth two of 00 times Medicin daily. e collagenase 0 Yes [id number] Apply to [facility] 250 UNIT/GM 10-03 [facility] ointment 00:00: wound on of 00 great big Medicin toe amp e site Wound measuremen ts 1.0 cm X 1.0 Cm collagenase 202-0 Yes [id number] Apply to [facility] 250 UNIT/GM 8-26 [facility] ointment 00:00: wound on of 00 great big Medicin toe amp e site Wound measuremen ts 1.0 cm X 1.0 Cm gabapentin 202-0 Yes [id number] 100mg Take 1 [facility] (NEURONTIN) 8-26 9107 capsule by Co llege 100 MG 00:00: mouth 3 of capsule 00 times Medicin daily. e doxycycline 2020-0 Yes [id number] 100mg Take 1 [facility] (ADOXA) 100 8-26 Tablet by Col lege MG tablet 00:00: mouth two of 00 times Medicin daily. e gabapentin 2020-0 Yes [id number] 100mg Take 1 [facility] (NEURONTIN) 8-26 9107 capsule by Co llege 100 MG 00:00: mouth 3 of capsule 00 times Medicin daily. e collagenase 2020-0 Yes [id number] Apply to [facility] 250 UNIT/GM 826 [facility] ointment 00:00: wound on of 00 great big Medicin toe amp e site Wound measuremen ts 1.0 cm X 1.0 Cm doxycycline 2020-0 Yes [id number] 100mg Take 1 [facility] (ADOXA) 100 8-26 Tablet by Col lege MG tablet 00:00: mouth two of 00 times Medicin daily. e gabapentin 2020-0 Yes [id number] 100mg Take 1 [facility] (NEURONTIN) 8-26 9107 capsule by Co llege 100 MG 00:00: mouth 3 of capsule 00 times Medicin daily. e doxycycline 2020-0 Yes [id number] 100mg Take 1 [facility] (ADOXA) 100 8-26 Tablet by Col lege MG tablet 00:00: mouth two of 00 times Medicin daily. e collagenase 2020-0 Yes [id number] Apply to [facility] 250 UNIT/GM 826 [facility] ointment 00:00: wound on of 00 great big Medicin toe amp e site Wound measuremen ts 1.0 cm X 1.0 Cm gabapentin 202-0 Yes [id number] 100mg Take 1 [facility] (NEURONTIN) 8-26 9107 capsule by Co llege 100 MG 00:00: mouth 3 of capsule 00 times Medicin daily. e doxycycline Yes [id number] 100mg Take 1 [facility] (ADOXA) 100 8-26 Tablet by Col lege MG tablet 00:00: mouth two of 00 times Medicin daily. e collagenase 0 Yes [id number] Apply to [facility] 250 UNIT/GM 8-26 [facility] ointment 00:00: wound on of 00 great big Medicin toe amp e site Wound measuremen ts 1.0 cm X 1.0 Cm gabapentin Yes [id number] 100mg Take 1 [facility] (NEURONTIN) 8 9107 capsule by Co llege 100 MG 00:00: mouth 3 of capsule 00 times Medicin daily. e collagenase Yes [id number] Apply to [facility] 250 UNIT/GM 826 [facility] ointment 00:00: wound on of great big Medicin toe amp e site Wound measuremen ts 1.0 cm X 1.0 Cm gabapentin Yes [id number] 100mg Take 1 [facility] (NEURONTIN) 8 9107 capsule by Co llege 100 MG 00:00: mouth 3 of capsule 00 times Medicin daily. e doxycycline Yes [id number] 100mg Take 1 [facility] (ADOXA) 100 8- Tablet by Col lege MG tablet 00:00: mouth two of 00 times Medicin daily. e Dabigatran Yes Take by [place] Etexilate 09-04 mouth. [place] Mesylate 10:40: of (PRADAXA) 39 Medicin 150 MG CAPS e glipiZIDE Yes 10mg Take 10 mg [facility] (GLUCOTROL) 28 by mouth Stew ege 10 MG 10:40: two times of tablet 39 daily. Medicin e valsartan Yes 320mg Take 320 [place] [facility] (DIOVAN) 7-28 mg by [place] 320 MG 10:40: mouth of tablet 39 [...] 200 [facility] (PACERONE) 7-28 mg by [place] 200 MG 10:40: mouth of tablet 39 daily. Medicin e SPIRONOLACT 0 Yes Take by [facility] ONE OR 7-28 mouth. [place] 10:40: of 39 Medicin e Dabigatran 0 Yes Take by [place] Etexilate 7-28 mouth. [place] Mesylate 10:40: of (PRADAXA) 39 Medicin 150 MG CAPS e glipiZIDE 0 Yes 10mg Take 10 mg [facility] (GLUCOTROL) 7-28 by mouth Stew ege 10 MG 10:40: two times of tablet 39 daily. Medicin e valsartan 0 Yes 320mg Take 320 [place] [facility] (DIOVAN) 7-28 mg by [place] 320 MG 10:40: mouth of tablet 39 [...] 200 [facility] (PACERONE) 7-28 mg by [place] 200 MG 10:40: mouth of tablet 39 daily. Medicin e SPIRONOLACT 0 Yes Take by [facility] ONE OR 7-28 mouth. [place] 10:40: of 39 Medicin e Dabigatran 0 Yes Take by [place] Etexilate 7-14 mouth. [place] Mesylate 10:25: of (PRADAXA) 59 Medicin 150 MG CAPS e glipiZIDE 2020-0 Yes 10mg Take 10 mg [facility] (GLUCOTROL) 7-14 by mouth Stew ege 10 MG 10:25: two times of tablet 59 daily. Medicin e valsartan 2020-0 Yes 320mg Take 320 [place] [facility] (DIOVAN) 7-14 mg by [place] 320 MG 10:25: mouth of tablet 59 [...] 200 [facility] (PACERONE) 08-21 mg by [place] 200 MG 10:25: mouth of tablet 59 daily. Medicin e SPIRONOLACT Yes Take by [facility] ONE OR 08-21 mouth. College 10:25: of 59 Medicin e doxycycline 0 Yes [id number] 100mg Take 1 [facility] (ADOXA) 100 08-21 [id number] Tablet by C ollege MG tablet 00:00: mouth two of 00 times Medicin daily. e mupirocin 0 Yes [id number] Apply to [facility] (BACTROBAN) 08-21 [id number] wound site College 2 % 00:00: daily of ointment 00 Medicin e doxycycline 0 Yes [id number] 100mg Take 1 [facility] (ADOXA) 100 08-21 [id number] Tablet by C ollege MG tablet 00:00: mouth two of 00 times Medicin daily. e mupirocin 2020-0 Yes [id number] Apply to [facility] (BACTROBAN) 08-21 [id number] wound site College 2 % 00:00: daily of ointment 00 Medicin e mupirocin 2020-0 Yes [id number] Apply to [facility] (BACTROBAN) 08-21 [id number] wound site College 2 % 00:00: daily of ointment 00 Medicin e mupirocin 2020-0 Yes [id number] Apply to [facility] (BACTROBAN) 08-21 [id number] wound site College 2 % 00:00: daily of ointment 00 Medicin e mupirocin 2020-0 Yes [id number] Apply to [facility] (BACTROBAN) 08-21 [id number] wound site College 2 % 00:00: daily of ointment 00 Medicin e mupirocin 2020-0 Yes [id number] Apply to [facility] (BACTROBAN) 08-21 [id number] wound site College 2 % 00:00: daily of ointment 00 Medicin e mupirocin 0 Yes [id number] Apply to [facility] (BACTROBAN) 08-21 [id number] wound site [place] 2 % 00:00: daily of ointment 00 Medicin e mupirocin 2020-0 Yes [id number] Apply to [facility] (BACTROBAN) 08-21 [id number] wound site [place] 2 % 00:00: daily of ointment 00 Medicin e mupirocin 0 Yes [id number] Apply to [facility] (BACTROBAN) 08-21 [id number] wound site [place] 2 % 00:00: daily of ointment 00 Medicin e doxycycline 2020- No [id number] 100mg Take 1 [facility] (ADOXA) 100 08-21 [id number] Tablet by [place] MG tablet 00:00: 00:00 mouth two of 00 :00 times Medicin daily. e Dabigatran Yes Take by [place] Etexilate 6-30 mouth. [place] Mesylate 09:35: of (PRADAXA) 59 Medicin 150 MG CAPS e glipiZIDE Yes 10mg Take 10 mg [facility] (GLUCOTROL) 6-30 by mouth Stew ege 10 MG 09:35: two times of tablet 59 daily. Medicin e valsartan Yes 320mg Take 320 [place] [facility] (DIOVAN) 6-30 mg by [place] 320 MG 09:35: mouth of tablet 59 [...] 200 [facility] (PACERONE) 6-30 mg by [place] 200 MG 09:35: mouth of tablet 59 daily. Medicin e SPIRONOLACT Yes Take by [facility] ONE OR 6-30 mouth. College 09:35: of 59 Medicin e Dabigatran 2021-0 Yes Take by [place] Etexilate 6-17 mouth. [place] Mesylate 10:35: of (PRADAXA) 15 Medicin 150 MG CAPS e glipiZIDE 0 Yes 10mg Take 10 mg [facility] (GLUCOTROL) 6-17 by mouth Stew ege 10 MG 10:35: two times of tablet 15 daily. Medicin e valsartan 0 Yes 320mg Take 320 [place] [facility] (DIOVAN) 6-17 mg by [place] 320 MG 10:35: mouth of tablet 15 [...] 200 [facility] (PACERONE) 6-17 mg by [place] 200 MG 10:35: mouth of tablet 15 daily. Medicin e SPIRONOLACT Yes Take by [facility] ONE OR 6-17 mouth. [place] 10:35: of 15 Medicin e Dabigatran Yes Take by [place] Etexilate 6-17 mouth. [place] Mesylate 10:35: of (PRADAXA) 15 Medicin 150 MG CAPS e glipiZIDE 0 Yes 10mg Take 10 mg [facility] (GLUCOTROL) 6-17 by mouth Stew ege 10 MG 10:35: two times of tablet 15 daily. Medicin e valsartan 0 Yes 320mg Take 320 [place] [facility] (DIOVAN) 6-17 mg by [place] 320 MG 10:35: mouth of tablet 15 [...] e gabapentin 2020- No 100mg Take 1 [place] [facility] (NEURONTIN) 07-17- capsule by C ollege 100 MG 00:00: 00:00 mouth 3 of capsule 00 :00 times Medicin daily. e amoxicillin 2020- No 1{tbl} Take 1 [facility] -clavulanat 07-17 Tablet by Co llege e 00:00: 00:00 mouth two of (AUGMENTIN) 00 :00 times Medicin 500-125 MG daily. e per tablet mupirocin 2020- No Apply to [place] [facility] (BACTROBAN) 07-17 affected Col lege 2 % 00:00: 00:00 area daily of ointment 00 :00 Medicin e glipiZIDE Yes 5mg QD Take [address] [facility] (GLUCOTROL) 5-28 by mouth [facility] 10 MG 16:36: daily . Medical tablet 41 [place] amiodarone Yes 200mg QD Take 200 [facility] [...] Center times daily . gabapentin Yes 100mg [id number] Take [address] [facility] [address] (NEURONTIN) 5-08 [id number] mg by L ukes 100 MG 00:00: 3D mouth 3 Medical capsule 00 (three) Center times daily . gabapentin Yes 100mg Q.[id number] Take [address] [facility] (NEURONTIN) 5-08 [id number] mg by L ukes 100 MG 00:00: [...] 09-12 Route: IM, l 16:50: Drug form: [place] PDR/INJ, PRN, Dosing Weight 116.364, kg, PRN [...] Oxide 09-12 (Same as: l 03:33: Mag-Ox [place] 00 400) Magnesium oxide 275vy=421f g elemental magnesium Dose=____m g magnesium oxide [...] Chloride 8-05 (Same as: l 03:33: KCL) [place] 00 Infuse over 2 hours. potassium No [...] WASTE: F/P l 03:22: - Sink; E [place] 00 - [facility] Magnesium No Notes: Memori a Sulfate 8 WASTE: F/P l 03:21: - Sink; E [place] - [facility] Potassium No Notes: [...] 60 l mg oral 22:15: tab, 1 [place] tablet 00 Refill(s) metoprolol No Notes: Memor [...] 09-11 PO, QAM, 0 l 16:33: Refill(s) [place] valsartan Yes 320 mg = 1 Me moria 320 mg oral 09-11 tab, PO, l tablet 16:33: Daily, # [place] 00 90 tab, 0 Refill(s) Glipizide Yes [...] tab, PO, l tablet 17:21: Daily, 0 [place] 00 Refill(s) glyBURIDE 5 Yes 10 mg [...] Source Systolic blood 2021-06-12 18:14:00 105 mm[Hg] [facility] Medicine Diastolic blood 2021-06-12 18:14:00 67 mm[Hg] [facility] Medicine Body height 2021-06-12 18:14:[address] [facility] ollege of [facility] Body weight 2021-06-12 18:14:[address] [facility] ollege of Medicine BMI 2021-06-12 18:14:00 34.45 kg/m2 [facility] ollege of Medicine WEIGHT 2021-05-31 14:32:00 99.2 kg WEIGHT 2021-05-31 14:32:00 99.2 kg Systolic blood 2020-11-27 18:29:00 146 mm[Hg] [facility] Medicine Diastolic blood 2020-11-27 18:29:00 79 mm[Hg] [facility] Medicine Heart rate 2020-11-27 18:29:00 57 /min [facility] ollege of [facility] Body height 2020-11-27 18:29:[address] [facility] ollege of [facility] Body weight 2020-11-27 18:29:[address] [facility] ollege of [facility] BMI 2020-11-27 18:29:00 34.45 kg/m2 [facility] ollege of Medicine HEIGHT 2020-11-11 07:48:00 182.9 cm WEIGHT 2020-11-11 07:48:00 114.306 kg HEIGHT 2020-11-11 07:48:00 182.9 cm WEIGHT 2020-11-11 07:48:00 114.306 kg HEIGHT 2020-11-07 10:38:00 182.9 cm WEIGHT 2020-11-07 10:38:00 115.667 kg HEIGHT 2020-11-07 10:38:00 182.9 cm WEIGHT 2020-11-07 10:38:00 115.667 kg Systolic blood 2020-10-30 14:03:00 157 mm[Hg] [facility] pressure Medicine Diastolic blood 2020-10-30 14:03:00 85 mm[Hg] [facility] Medicine Heart rate 2020-10-30 14:03:00 73 /min [facility] C ollege of Medicine Body height 2020-10-30 14:03:00 182.9 cm [facility] C ollege of Medicine Body weight 2020-10-30 14:03:00 115.214 kg [facility] C [facility]lege of Medicine BMI 2020-10-30 14:03:00 34.45 kg/m2 [facility] C ollege of Medicine Systolic blood 2020-10-16 16:59:00 115 mm[Hg] [facility] pressure Medicine Diastolic blood 2020-10-16 16:59:00 63 mm[Hg] [facility] Medicine Heart rate 2020-10-16 16:59:00 63 /min [facility] C ollege of Medicine Body height 2020-10-16 16:59:00 182.9 cm [facility] C [facility]lege of Medicine Body weight 2020-10-16 16:59:00 108.863 kg [facility] C [facility]lege of Medicine BMI 2020-10-16 16:59:00 32.55 kg/m2 [facility] C ollege of Medicine Systolic blood 2020-10-03 18:35:00 118 mm[Hg] [facility] Medicine Diastolic blood 2020-10-03 18:35:00 67 mm[Hg] [facility] Medicine Heart rate 2020-10-03 18:35:00 70 /min [facility] C ollege of Medicine Body height 2020-10-03 18:35:00 182.9 cm [facility] C ollege of Medicine Body weight 2020-10-03 18:35:00 108.863 kg [facility] C ollege of Medicine BMI 2020-10-03 18:35:00 32.55 kg/m2 [facility] of [facility] Body height 2020-09-04 15:40:00 182.9 cm [facility] of Medicine Body weight 2020-09-04 15:40:00 108.863 kg [facility] C ollege of Medicine BMI 2020-09-04 15:40:00 32.55 kg/m2 [facility] ollege of Medicine Systolic blood 2020-08-21 15:25:00 137 mm[Hg] [facility] pressure Medicine Diastolic blood 2020-08-21 15:25:00 69 mm[Hg] [facility] Medicine Heart rate 2020-08-21 15:25:00 75 /min [facility] C ollege of Medicine Body height 2020-08-21 15:25:00 182.9 cm [facility] C ollege of Medicine Body weight 2020-08-21 15:25:00 108.863 kg [facility] C ollege of Medicine BMI 2020-08-21 15:25:00 32.55 kg/m2 [facility] ollege of Medicine Systolic blood 2020-08-21 15:25:00 137 mm[Hg] [facility] pressure Medicine Diastolic blood 2020-08-21 15:25:00 69 mm[Hg] [facility] Medicine Heart rate 2020-08-21 15:25:00 75 /min [facility] C ollege of Medicine Body height 2020-08-21 15:25:00 182.9 cm [facility] C ollege of Medicine Body weight 2020-08-21 15:25:00 108.863 kg [facility] C ollege of Medicine [facility] 2020-08-21 15:25:00 32.55 kg/m2 [facility] ollege of Medicine Systolic blood 2020-07-25 15:35:00 121 mm[Hg] [facility] pressure Medicine Diastolic blood 2020-07-25 15:35:00 74 mm[Hg] [facility] Medicine Heart rate 2020-07-25 15:35:00 81 /min [facility] C ollege of Medicine Body height 2020-07-25 15:35:00 182.9 cm [facility] C ollege of Medicine Body weight 2020-07-25 15:35:00 108.863 kg [facility] C ollege of Medicine BMI 2020-07-25 15:35:00 32.55 kg/m2 [facility] C ollege of Medicine Systolic blood 2020-07-25 15:35:00 121 mm[Hg] [facility] of pressure Medicine Diastolic blood 2020-07-25 15:35:00 74 mm[Hg] [facility] pressure Medicine Heart rate 2020-07-25 15:35:00 81 /min [facility] C ollege of Medicine Body height 2020-07-25 15:35:00 182.9 cm [facility] Body weight 2020-07-25 15:35:00 108.863 kg [facility] BMI 2020-07-25 15:35:00 32.55 kg/m2 [facility] Systolic blood 2020-07-17 14:34:00 121 mm[Hg] [facility] Diastolic blood 2020-07-17 14:34:00 63 mm[Hg] [facility] Heart rate 2020-07-17 14:34:00 70 /min [facility] Body height 2020-07-17 14:34:00 182.9 cm [facility] Body weight 2020-07-17 14:34:00 108.863 kg [facility] BMI 2020-07-17 14:34:00 32.55 kg/m2 [facility] Systolic blood 2020-07-17 14:34:00 121 mm[Hg] [facility] Medicine Diastolic blood 2020-07-17 14:34:00 63 mm[Hg] [facility] Medicine Heart rate 2020-07-17 14:34:00 70 /min [facility] Body height 2020-07-17 14:34:00 182.9 cm [facility] Body weight 2020-07-17 14:34:00 108.863 kg [facility] BMI 2020-07-17 14:34:00 32.55 kg/m2 [facility] HEIGHT 2020-06-26 09:00:00 182.9 cm WEIGHT 2020-06-26 09:00:00 110.088 kg HEIGHT 2020-06-25 19:57:00 188 cm WEIGHT 2020-06-25 19:57:00 99.791 kg HEIGHT 2020-06-26 09:00:00 182.9 cm WEIGHT 2020-06-26 09:00:00 110.088 kg HEIGHT 2020-06-25 19:57:00 188 cm WEIGHT 2020-06-25 19:57:00 99.791 kg Systolic blood 2021-06-05 15:41:00 124 mm[Hg] [facility] Diastolic blood 2021-06-05 15:41:00 57 mm[Hg] [facility] Heart rate 2021-06-05 15:41:00 68 /min [facility] Body temperature 2021-06-05 15:41:00 35.61 Madeline [facility] Respiratory rate 2021-06-05 15:41:00 18 /min [facility] Oxygen saturation in 2021-06-05 15:41:00 97 /min [facility] Arterial blood by Medical Ce nter Pulse oximetry Body weight 2021-05-31 14:32:00 99.2 kg [facility] BMI 2021-05-31 14:32:00 29.66 kg/m2 [facility] Body height 2020-11-11 07:48:00 182.9 cm [facility] Systolic blood 2020-07-05 10:59:00 113 mm[Hg] [facility] Diastolic blood 2020-07-05 10:59:00 51 mm[Hg] [facility] Heart rate 2020-07-05 10:59:00 80 /min [facility] Body temperature 2020-07-05 10:59:00 36.17 Madeline [facility] Respiratory rate 2020-07-05 10:59:00 17 /min [facility] Oxygen saturation in 2020-07-05 10:59:00 97 /min [facility] Arterial blood by Medical Ce [facility]ter Pulse oximetry Body height 2020-06-26 09:00:00 182.9 cm [facility] Body weight 2020-06-26 09:00:00 110.088 kg [facility] BMI 2020-06-26 09:00:00 32.92 kg/m2 [facility] Temperature Oral (F) 2016-09-12 20:06:00 97.9 F [facility] Respitory Rate 2016-09-12 19:00:00 Mem[facility] Systolic (mm Hg) 2016-09-12 19:00:00 Niko [facility] Diastolic (mm Hg) 2016-09-12 19:00:00 Mem orial [facility] Respitory Rate 2016-09-12 18:00:00 [facility] Systolic (mm Hg) 2016-09-12 18:00:00 Niko [facility] Tino Diastolic (mm Hg) 2016-09-12 18:00:00 Mem [facility] Respitory Rate 2016-09-12 17:00:00 Memori al [facility] Systolic (mm Hg) 2016-09-12 17:00:00 Niko rial Tino Diastolic (mm Hg) 2016-09-12 17:00:00 Mem [facility] Temperature Oral (F) 2016-09-12 12:51:00 97.9 F [facility] Temperature Oral (F) 2016-09-12 10:38:00 97.6 F [facility] BMI Calculated 2016-09-11 16:02:00 [facility] Weight 2016-09-11 16:02:00 [facility] Height 2016-09-11 16:02:00 182.88 cm [facility] Systolic (mm Hg) 2014-03-06 20:30:00 Niko [facility] Tino Diastolic (mm Hg) 2014-03-06 20:30:00 Mem [facility] Respitory Rate 2014-03-06 20:30:00 Mem[facility] Diastolic (mm Hg) 2014-03-06 20:15:00 Mem [facility] Systolic (mm Hg) 2014-03-06 20:15:00 Niko [facility] Respitory Rate 2014-03-06 20:15:00 [facility] Diastolic (mm Hg) 2014-03-06 20:02:00 [facility] Systolic (mm Hg) 2014-03-06 20:02:00 Niko [facility] Respitory Rate 2014-03-06 20:02:00 [facility] Heart Rate 2014-03-06 17:15:00 [facility] Heart Rate 2014-03-05 17:17:00 [facility] BMI Calculated 2014-03-05 16:24:00 John Ramann Weight 2014-03-05 16:24:00 [facility] Height 2014-03-05 16:24:00 180.34 cm [facility] Procedures Procedure Date / Time Performed Performing Clinician Sourc e CBC W/PLT COUNT & AUTO 2021-06-05 09:38:[address] [facility] DI[facility]ENTIAL [facility] BASIC METABOLIC PANEL 2021-06-05 09:38:00 Jacqueline Schneider [facility] (7) [facility] CBC W/PLT COUNT & AUTO 2021-06-05 09:38:[address] [facility] DIFFERENTIAL [facility] (CELLAVISION MANUAL 2021-06-05 09:38:[address] [facility] DIFF) [facility] POCT-GLUCOSE METER 2021-06-05 07:45:00 Jacqueline Schneider [facility] POCT-GLUCOSE METER 2021-06-04 22:32:00 [facility] POCT-GLUCOSE METER 2021-06-04 16:52:00 Jacqueline Schneider [facility] XR FOOT 3 VIEWS LEFT 2021-06-04 13:52:00 Stanford Marcum [facility] POCT-GLUCOSE METER 2021-06-04 13:36:00 Jacqueline Schneider [facility] AMPUTATION,TOE 2021-06-04 12:12:00 Aleksandr Duong [facility] POCT-GLUCOSE METER 2021-06-04 08:19:00 [facility] APTT 2021-06-04 04:56:00 Stanford Marcum [facility] POCT-GLUCOSE METER 2021-06-03 22:20:00 Wyatt [facility] POCT-GLUCOSE METER 2021-06-03 12:50:00 Wyatt, [facility] POCT-GLUCOSE METER 2021-06-03 10:13:00 [facility] ABD AO & LOWER EXT 2021-06-03 07:19:00 EduinCainmarilou Ranken [facility] ANGIO/ [facility] 2021-06-03 05:05:00 Stanford Marcum Tim [facility] APTT 2021-06-02 22:10:00 Stanford Marcum [facility] POCT-GLUCOSE METER 2021-06-02 21:04:00 Wyatt [facility] POCT-GLUCOSE METER 2021-06-02 17:37:00 Wyatt [facility] APTT 2021-06-02 14:48:00 Stanford Marcum [facility] POCT-GLUCOSE METER 2021-06-02 12:43:00 Wyatt [facility] ABORH, MANUAL 2021-06-02 11:09:00 Winifred Ellington [facility] POCT-GLUCOSE METER 2021-06-02 08:14:00 [facility] TYPE AND SCREEN, 2021-06-02 07:56:00 Carlos Davis [facility] APTT 2021-06-02 07:50:00 Stanford Marcum Tim [facility] APTT 2021-06-02 00:25:00 Stanford Marcum Tim [facility] POCT-GLUCOSE METER 2021-06-01 22:24:00 Wyatt [facility] HC ARTERIAL(SRIRAM W 2021-06-01 21:10:00 Carlos Davis [facility] es DOPPLER)[facility] APTT 2021-06-01 18:01:00 Stanford Marcum [facility] POCT-GLUCOSE METER 2021-06-01 16:57:00 Wyatt, [facility] XR FOOT 3 VIEWS LEFT 2021-06-01 13:27:00 Chago Peterson [facility] POCT-GLUCOSE METER 2021-06-01 12:09:00 Wyatt [facility] APTT 2021-06-01 11:36:00 Stanford Marcum Tim [facility] HC ARTERIAL DOPPLER LEGS 2021-06-01 11:05:00 Carlos Davis [facility] POCT-GLUCOSE METER 2021-06-01 07:57:00 Wyatt [facility] CBC W/PLT COUNT & AUTO 2021-06-01 05:13:00 Adriana Tirado [facility] BASIC METABOLIC PANEL 2021-06-01 05:13:00 Adriana Tirado [address] HEPATIC FUNCTION PANEL 2021-06-01 05:13:00 Adriana Tirado [facility] C-REACTIVE PROTEIN 2021-06-01 05:13:00 Adriana Tirado [facility] VITAMIN B12 AND FOLATE 2021-06-01 05:13:00 Adriana Tirado [facility] APTT 2021-06-01 05:13:00 Stanford Marcum [facility] CBC W/PLT COUNT & AUTO 2021-06-01 05:13:00 Adriana Tirado [facility] (CELLAVISION MANUAL 2021-06-01 05:13:00 Adriana Tirado [facility] APTT 2021-05-31 23:12:00 [facility] POCT-GLUCOSE METER 2021-05-31 22:24:00 Adriana Tirado [facility] APTT 2021-05-31 22:18:00 Adriana Tirado [facility] POCT-GLUCOSE METER 2021-05-31 17:11:00 Marie TiradoVenturaLindy [facility] SARS-COV2/RT-PCR ([facility] & 2021-05-31 15:04:00 Stanford Marcum [facility] REF LABS) [facility] APTT 2021-05-31 14:51:00 Marie TiradoVenturaLindy [facility] CBC (HEMOGRAM ONLY) 2021-05-31 14:45:00 Marie TiradoVenturaLindy [facility] BASIC METABOLIC PANEL 2021-05-31 14:45:00 Adriana Tirado [address] POCT-GLUCOSE METER 2020-11-11 15:50:00 Eduin [facility] POCT-GLUCOSE METER 2020-11-11 15:18:00 Eduin [facility] PERIPHERAL ANGIOS / 2020-11-11 12:39:00 [facility] ONLY[facility] 2020-11-11 09:09:00 [facility] BASIC METABOLIC PANEL 2020-11-11 09:09:00 [facility] [address] PROTHROMBIN TIME/INR 2020-11-11 09:09:00 [facility] APTT 2020-11-11 09:09:00 [facility] ECG 12-LEAD 2020-11-11 07:49:58 [facility] ECG 12-LEAD 2020-11-11 07:49:58 Unknown, Hl7 Doctor [facility] CARDIAC CATH REPORT - 2020-11-11 00:00:00 Sven Ambriz [facility] SCAN [facility] BASIC METABOLIC PANEL 2020-11-07 11:33:00 Eduin [place] [address]) [facility] CBC W/PLT COUNT & AUTO 2020-11-07 11:33:00 Eli Denny [facility] PROTHROMBIN TIME/INR 2020-11-07 11:33:00 Eduin marilou [facility] CBC W/PLT COUNT & AUTO 2020-11-07 11:33:00 Eli Denny [facility] (CELLAVISION MANUAL 2020-11-07 11:33:[address] [facility] DIFF) [facility] SARS-COV2/RT-PCR ([facility] & 2020-11-07 11:10:[address] [facility] REF LABS) [facility] ECG 12-LEAD 2020-11-07 10:39:57 Unknown, Hl7 Doctor [facility] ECG 12-LEAD 2020-11-07 10:39:57 Unknown, Hl7 Doctor [facility] XR FOOT 3 VIEWS RIGHT 2020-10-16 13:50:00 Aleksandr Duong [facility] XR FOOT 3 VIEWS RIGHT 2020-09-04 12:18:00 Aleksandr Duong [facility] POCT-GLUCOSE METER 2020-07-05 [facility]:02[facility] 2020-07-05 07:52:[facility] W/PLT COUNT & AUTO 2020-07-05 04:20:00 OMID Portillo t Yuli DIFFERENTIAL [facility] BASIC METABOLIC PANEL 2020-07-05 04:20:[address] [facility] (7) [facility] (CELLAVISION MANUAL 2020-07-05 04:20:[address] [facility] DIFF) [facility] CBC W/PLT COUNT & AUTO 2020-07-05 04:20:00 OMID Portillo S t Yuli DIFFERENTIAL [facility] POCT-GLUCOSE METER 2020-07-04 21:24:00 [facility] POCT-GLUCOSE METER 2020-07-04 17:38[facility]00 [facility] & AUTO 2020-07-04 15:02:00 OMID Portillo [facility] BASIC METABOLIC PANEL 2020-07-04 15:02:00 Bandar [facility] (7) [facility] (CELLAVISION MANUAL 2020-07-04 15:02:00 OMID Portillo L ukes DIFF) [facility] CBC W/PLT COUNT & AUTO 2020-07-04 15:02:00 OMID Portillo Juanita Roldan DIFFERENTIAL [facility] APTT 2020-07-04 12:11:00 Bond [facility] POCT-GLUCOSE METER 2020-07-04 12:09:00 [facility] POCT-[facility]UCOSE METER 2020-07-04 07:25:00 [facility] APTT 2020-07-04 04:37:00 Bond [facility] APTT 2020-07-03 23:27:00 [facility] POCT-GLUCOSE METER 2020-07-03 21:06:00 [facility] 2020-07-03 17:12:00 [facility] 2020-07-03 15:25:00 Bond [facility] APTT 2020-07-03 14:21:00 Bond [facility] POCT-GLUCOSE METER 2020-07-03 12:08:00 [facility] POCT-GLUCOSE METER 2020-07-03 07:56:00 [facility] SARS-COV2/RT-PCR ([facility] & 2020-07-03 04:47:00 Bond [facility] REF LABS) [facility] CBC (HEMOGRAM ONLY) 2020-07-03 04:09:00 Christian Sellers [facility] BASIC METABOLIC PANEL 2020-07-03 04:09:00 Christian Sellers [facility] () [facility] APTT 2020-07-03 04:09:00 [facility] POCT-GLUCOSE METER 2020-07-02 17:42:00 Christian Sellers [facility] CBC (HEMOGRAM ONLY) 2020-07-02 17:31:00 [facility] VANCOMYCIN LEVEL, RANDOM 2020-07-02 15:53:00 [facility] POCT-GLUCOSE METER 2020-07-02 14:29:00 [facility] Lyudmila [facility] TISSUE EXAM 2020-07-02 13:10:00 Justin Aleksandrjefe Cross [facility] AMPUTATION,TOE 2020-07-02 12:39:00 Aleksandr Duong [facility] POCT-GLUCOSE METER 2020-07-02 11:35:00 Christian Sellers [facility] ECG 12-LEAD 2020-07-02 11:28:39 Cong Leon [facility] ECG 12-LEAD 2020-07-02 11:28:39 Unknown, Hl7 [facility] POCT-GLUCOSE METER 2020-07-02 07:52:00 Christian Sellers [facility] SARS-COV2/RT-PCR ([facility] & 2020-07-02 04:34:00 Christian Sellers [facility] REF LABS) [facility] APTT 2020-07-02 04:32:00 [facility] CBC W/PLT COUNT & AUTO 2020-07-02 02:44:00 Christian Sellers [facility] BASIC METABOLIC PANEL 2020-07-02 02:44:00 Christian Sellers [facility] (7) [facility] APTT 2020-07-02 02:44:00 [facility] (CELLAVISION MANUAL 2020-07-02 02:44:00 Christian Sellers [facility] DIFF) [facility] CBC W/PLT COUNT & AUTO 2020-07-02 02:44:00 Christian Sellers [facility] POCT-GLUCOSE METER 2020-07-01 23:07:00 Christian Sellers [facility] APTT 2020-07-01 17:35:00 [facility] POCT-GLUCOSE METER 2020-07-01 16:50:00 Christian Sellers [facility] APTT 2020-07-01 13:45:00 [facility] POCT-GLUCOSE METER 2020-07-01 11:56:00 Christian Sellers [facility] POCT-GLUCOSE METER 2020-07-01 07:22:00 Christian Sellers [facility] APTT 2020-07-01 05:24:00 [facility] CBC W/PLT COUNT & AUTO 2020-07-01 05:24:00 Christian Sellers [facility] BASIC METABOLIC PANEL 2020-07-01 05:24:00 Christian Sellers [facility] (7) [facility] VANCOMYCIN LEVEL, RANDOM 2020-07-01 05:24:00 Mino Hui [facility] HEPATIC FUNCTION PANEL 2020-07-01 05:24:00 Too Pino C [facility] (CELLAVISION MANUAL 2020-07-01 05:24:00 Christian [facility]ellers [facility] W/[facility]T COUNT & AUTO 2020-07-01 05:24:00 Christian Sellers [facility] POCT-GLUCOSE METER 2020-07-01 00:14:00 Christian Sellers [facility] APTT 2020-06-30 23:39:00 [facility] APTT 2020-06-30 16:01:00 [facility] APTT 2020-06-30 14:06:00 [facility] APTT 2020-06-30 13:27:00 [facility] POCT-GLUCOSE METER 2020-06-30 12:00:00 Christian Sellers [facility] POCT-GLUCOSE METER 2020-06-30 08:07:00 Christian Sellers [facility] APTT 2020-06-30 07:29:00 [facility] VANCOMYCIN LEVEL, RANDOM 2020-06-30 05:20:00 Mino Hui [facility] CBC W/PLT COUNT & AUTO 2020-06-30 05:20:00 Christian Sellers [facility] BASIC METABOLIC PANEL 2020-06-30 05:20:00 Christian Sellers [facility] (CELL[facility]ISION MANUAL 2020-06-30 05:20:00 Christian Sellers [facility] CBC W/PLT COUNT & AUTO 2020-06-30 05:20:00 Christian Sellers [facility] APTT 2020-06-30 00:01:00 [facility] APTT 2020-06-29 21:53:00 [facility] POCT-GLUCOSE METER 2020-06-29 20:55:00 [place] Lyudmila [facility] POCT-GLUCOSE METER 2020-06-29 17:07:00 Fernando [place] Lyudmila [facility] CBC (HEMOGRAM ONLY) 2020-06-29 13:52:00 [facility] APTT 2020-06-29 13:52:00 [facility] POCT-GLUCOSE METER 2020-06-29 12:02:00 Christian Sellers [facility] POCT-GLUCOSE METER 2020-06-29 07:56:00 Christian Sellers [facility] CBC W/PLT COUNT & AUTO 2020-06-29 06:48:00 Barbara Colón [facility] BASIC METABOLIC PANEL 2020-06-29 06:48:00 Barbara Colón [facility] (7) [facility] APTT 2020-06-29 06:48:00 [facility] 2020-06-29 06:48:00 [facility] (CELL[facility]ISION MANUAL 2020-06-29 06:48:00 Barbara Colón [facility] CBC W/PLT COUNT & AUTO 2020-06-29 06:48:00 Barbara Colón [facility] APTT 2020-06-29 00:13:00 [facility] APTT 2020-06-28 21:37:00 [facility] POCT-GLUCOSE METER 2020-06-28 21:24:00 Christian Sellers [facility] VANCOMYCIN LEVEL, TROUGH 2020-06-28 20:04:00 Barbara Colón [facility] POCT-GLUCOSE METER 2020-06-28 17:31:00 Christian Sellers [facility] VENOGRAM 2020-06-28 14:56:00 Eli Denny [facility] APTT 2020-06-28 13:36:00 [facility] POCT-GLUCOSE METER 2020-06-28 11:40:00 Christian Sellers [facility] POCT-GLUCOSE METER 2020-06-28 07:39:00 Christian Sellers [facility] CBC W/PLT COUNT & AUTO 2020-06-28 04:37:00 Christian Sellers [facility] BASIC METABOLIC PANEL 2020-06-28 04:37:00 MarloChristian Lyudmila [facility] (7) [facility] APTT 2020-06-28 04:37:00 [facility] (CELLAVISION MANUAL 2020-06-28 04:37:[address] [facility] DIFF) [facility] [place] CBC W/PLT COUNT & AUTO 2020-06-28 04:37:00 Marlo Marilynnsanjana Coreas [facility] POCT-GLUCOSE METER 2020-06-27 23:12:00 Marlo Christian Lyudmila [facility] APTT 2020-06-27 21:25:00 [facility] APTT 2020-06-27 18:32:00 [facility] POCT-GLUCOSE METER 2020-06-27 18:07:00 Marlo [place] Lyudmila [facility] POCT-GLUCOSE METER 2020-06-27 11:55:00 Marlo Christian Lyudmila [facility] APTT 2020-06-27 11:47:00 [facility] POCT-GLUCOSE METER 2020-06-27 07:18:00 Marlo Fernandojocelynn Coreas [facility] CBC W/PLT COUNT & AUTO 2020-06-27 05:36:00 Marlo Christian Lyudmila [facility] BASIC METABOLIC PANEL 2020-06-27 05:36:00 Marlo Fernandojocelynn Coreas [facility] (7) [facility] APTT 2020-06-27 05:36:00 [facility] (CELLAVISION MANUAL 2020-06-27 05:36:00 Marlo Fernandojocelynn Coreas [facility] DIFF) [facility] CBC W/PLT COUNT & AUTO 2020-06-27 05:36:00 Marlo Marilynnsanjana Coreas [facility] HC ARTERIAL DOPPLER LEGS 2020-06-27 00:18:00 Nemo Perez [facility] APTT 2020-06-26 22:43:00 [facility] POCT-GLUCOSE METER 2020-06-26 17:33:00 [facility] CBC (HEMOGRAM ONLY) 2020-06-26 15:21:[address] [facility] APTT 2020-06-26 15:21:00 [facility] POCT-GLUCOSE METER 2020-06-26 12:23:00 [facility] BASIC METABOLIC PANEL 2020-06-26 03:35:00 [facility] (7) [facility] HEMOGLOBIN A1C 2020-06-26 03:35:00 [facility] CBC W/PLT COUNT & AUTO 2020-06-26 03:35:00 [facility] C-REACTIVE PROTEIN 2020-06-26 03:35:00 [facility] VITAMIN B12 AND FOLATE 2020-06-26 03:35:00 [facility] (CELLAVISION MANUAL 2020-06-26 03:35:00 [facility] DIFF) [facility] CBC W/PLT COUNT & AUTO 2020-06-26 03:35:00 [facility] XR FOOT 3 VIEWS RIGHT 2020-06-25 23:30:00 [facility] VENOUS DOPPLER LEG, 2020-06-25 22:58:00 [facility] SARS-COV2/RT-PCR ([facility] & 2020-06-25 21:40:00 Bond [facility] REF LABS) [facility] BLOOD CULTURE 2020-06-25 21:40:00 [facility] BLOOD CULTURE 2020-06-25 18:39:00 [facility] BLOOD CULTURE 2020-06-25 18:36:00 [facility] CBC W/PLT COUNT & AUTO 2020-06-25 18:36:00 Suri Chahal [facility] DIFFERENTIAL [facility] BASIC METABOLIC PANEL 2020-06-25 18:36:00 ChahalSuri dunn I [facility] (7) [facility] [place] LACTIC ACID, VENOUS 2020-06-25 18:36:00 Chahal [facility] PT/APTT 2020-06-25 18:36:00 [facility] C-REACTIVE PROTEIN 2020-06-25 18:36:00 [facility] S t [facility] (CELLAVISION MANUAL 2020-06-25 18:36:00 [facility] DIFF) [facility] CBC W/PLT COUNT & AUTO 2020-06-25 18:36:00 ChahalSuri [facility] DIFFERENTIAL [facility] CARDIAC CATH REPORT - 2020-06-25 00:00:00 Provider, [facility] SCAN Scanning [facility] Arthroplasty of [facility] knee<sup>1</sup> Procedure<sup>2</sup> [facility] Plan of Care Planned Activity Planned Date Details Comments Source Future Scheduled 2021-10-09 INFLUENZA VACCINE [facility] Test 00:00:00 (Season Ended) [code Medical Center = INFLUENZA VACCINE (Season Ended)] Future Scheduled 2021-06-19 COVID-19 Vaccine (1) [facility] Test 13:37:29 [code = COVID-19 of Medicine Vaccine (1)] Future Scheduled 2021-06-19 TETANUS SHOT (ADULT) [facility] Test 13:37:29 [code = TETANUS SHOT of Medi cine (ADULT)] Future Scheduled 2021-06-19 Diabetic foot [facility] Col [facility]ge Test 13:37:29 examination of Medicine (regime/therapy) [code = 227487633] Future Scheduled 2021-06-19 Hepatitis C [facility] Stew ege Test 13:37:29 screening of Medicine (procedure) [code = 977895243] Future Scheduled 2021-06-19 ZOSTER VACCINE (1 of [facility] [facility]:37:29 2) [code = ZOSTER of Medicin e VACCINE (1 of 2)] Future Scheduled 2021-06-19 Pneumococcal 65+ (1 [employer] Test 13:37:29 of 1 - PPSV23) [code of Medi cine = Pneumococcal 65+ (1 of 1 - PPSV23)] Future Scheduled 2021-06-19 ANNUAL DIABETIC [facility] Test 13:37:29 RETINOPATHY of Medicine SCREENING [code = ANNUAL DIABETIC RETINOPATHY SCREENING] Future Scheduled 2021-06-19 BMI FOLLOW UP PLAN [employer] Test 13:37:29 [code = BMI FOLLOW of Medici ne UP PLAN] Future Scheduled 2021-06-19 FLU VACCINE > 6 [facility] Test 13:37:29 MONTHS [code = FLU of Medici ne VACCINE > 6 MONTHS] Future Scheduled 2021-06-19 MEDICARE AWV [facility] [employer] Test 13:37:29 (Initial) [code = of Medicin e MEDICARE AWV (Initial)] Future Scheduled 2021-06-19 FALL SCREEN [code = [employer] Test 13:37:29 FALL SCREEN] of Medicine Future Scheduled 2021-06-12 US ARTERIAL LEG LEFT 1 Occurrences [employer] Test 13:18:29 [code = 84907] starting of Medicine 06/12/2021 until 06/11/2022 Future Scheduled 2020-12-[address] [facility]00 [facility] (procedure) [code = 10471033] Future Scheduled 2020-12-[address] [facility] Test 00:00:[address] [facility] (procedure) [code = 03654164] Future Scheduled 2020-12-02 COVID-19 Vaccine (1) [employer] Test 12:35:52 [code = COVID-19 of Medicine Vaccine (1)] Future Scheduled 2020-12-02 TETANUS SHOT (ADULT) [employer] Test 12:35:52 [code = TETANUS SHOT of Medi cine (ADULT)] Future Scheduled 2020-12-02 Diabetic foot [facility] Test 12:35:52 examination of Medicine (regime/therapy) [code = 625979761] Future Scheduled 2020-12-02 Hepatitis C [facility] Test 12:35:52 screening of Medicine (procedure) [code = 596782454] Future Scheduled 2020-12-02 ZOSTER VACCINE (1 of [employer] Test 12:35:52 2) [code = ZOSTER of Medicin e VACCINE (1 of 2)] Future Scheduled 2020-12-02 PNEUMOVAX >=65 [facility] [employer] Test 12:35:52 (PPSV23) [code = of Medicine PNEUMOVAX >=65 (PPSV23)] Future Scheduled 2020-12-02 ANNUAL DIABETIC [facility] Test 12:35:52 RETINOPATHY of Medicine SCREENING [code = ANNUAL DIABETIC RETINOPATHY SCREENING] Future Scheduled 2020-12-02 MEDICARE IPPE [facility] Test 12:35:52 (WELCOME TO of Medicine MEDICARE) [code = MEDICARE IPPE (WELCOME TO MEDICARE)] Future Scheduled 2020-12-02 FLU VACCINE > 6 [facility] Test 12:35:52 MONTHS [code = FLU of Medici ne VACCINE > 6 MONTHS] Future Scheduled 2020-12-02 BMI FOLLOW UP PLAN [facility] [employer] Test 12:35:52 [code = BMI FOLLOW of Medici ne UP PLAN] Future Scheduled 2020-12-02 FALL SCREEN [code = [facility] Test 12:35:52 FALL SCREEN] of Medicine Future Scheduled 2020-11-27 COMPRESSION STOCKING Ordered: [facility] Test 13:57:18 15-20MM [code = 11/27/2020 of Medicine NOCPT] Future Scheduled 2020-11-27 US ARTERIAL LEGS 1 Occurrences [facility] Test 13:56:56 BILATERAL [code = starting of Medicin e 54136-4] 11/27/2020 until 11/27/2021 Future Scheduled 2020-11-01 COVID-19 Vaccine (1) [facility] Test 07:39:50 [code = COVID-19 of Medicine Vaccine (1)] Future Scheduled 2020-11-01 TETANUS SHOT (ADULT) [facility] Test 07:39:50 [code = TETANUS SHOT of Medi cine (ADULT)] Future Scheduled 2020-11-01 Diabetic foot [facility] Test 07:39:50 examination of Medicine (regime/therapy) [code = 009696816] Future Scheduled 2020-11-01 Hepatitis C [facility] Test 07:39:50 screening of Medicine (procedure) [code = 329670066] Future Scheduled 2020-11-01 ZOSTER VACCINE (1 of [employer] Test 07:39:50 2) [code = ZOSTER of Medicin e VACCINE (1 of 2)] Future Scheduled 2020-11-01 PNEUMOVAX >=65 [facility] Test 07:39:50 (PPSV23) [code = of Medicine PNEUMOVAX >=65 (PPSV23)] Future Scheduled 2020-11-01 ANNUAL DIABETIC [facility] Test 07:39:50 RETINOPATHY of Medicine SCREENING [code = ANNUAL DIABETIC RETINOPATHY SCREENING] Future Scheduled 2020-11-01 MEDICARE IPPE [facility] Test 07:39:50 (WELCOME TO of Medicine MEDICARE) [code = MEDICARE IPPE (WELCOME TO MEDICARE)] Future Scheduled 2020-11-01 FLU VACCINE > 6 [facility] Test 07:39:50 MONTHS [code = FLU of Medici ne VACCINE > 6 MONTHS] Future Scheduled 2020-11-01 BMI FOLLOW UP PLAN [facility] [employer] Test 07:39:50 [code = BMI FOLLOW of Medici ne UP PLAN] Future Scheduled 2020-11-01 FALL SCREEN [code = [facility] or [facility] Test 07:39:50 FALL SCREEN] of Medicine Future Scheduled 2020-11-01 COVID-19 Vaccine (1) [facility] [employer] Test 07:39:50 [code = COVID-19 of Medicine Vaccine (1)] Future Scheduled 2020-11-01 TETANUS SHOT (ADULT) [facility] [employer] Test 07:39:50 [code = TETANUS SHOT of Medi cine (ADULT)] Future Scheduled 2020-11-01 Diabetic foot [facility] Test 07:39:50 examination of Medicine (regime/therapy) [code = 528023078] Future Scheduled 2020-11-01 Hepatitis C [facility] Test 07:39:50 screening of Medicine (procedure) [code = 514709094] Future Scheduled 2020-11-01 ZOSTER VACCINE (1 of [facility] [employer] Test 07:39:50 2) [code = ZOSTER of Medicin e VACCINE (1 of 2)] Future Scheduled 2020-11-01 PNEUMOVAX >=65 [facility] Test 07:39:50 (PPSV23) [code = of Medicine PNEUMOVAX >=65 (PPSV23)] Future Scheduled 2020-11-01 ANNUAL DIABETIC [facility] Test 07:39:50 RETINOPATHY of Medicine SCREENING [code = ANNUAL DIABETIC RETINOPATHY SCREENING] Future Scheduled 2020-11-01 MEDICARE IPPE [facility] Test 07:39:50 (WELCOME TO of Medicine MEDICARE) [code = MEDICARE IPPE (WELCOME TO MEDICARE)] Future Scheduled 2020-11-01 FLU VACCINE > 6 [facility] Test 07:39:50 MONTHS [code = FLU of Medici ne VACCINE > 6 MONTHS] Future Scheduled 2020-11-01 BMI FOLLOW UP PLAN [employer] Test 07:39:50 [code = BMI FOLLOW of Medici ne UP PLAN] Future Scheduled 2020-11-01 FALL SCREEN [code = [employer] Test 07:39:50 FALL SCREEN] of Medicine Future Scheduled 2020-10-30 COVID-19 Vaccine (1) [employer] Test 09:03:34 [code = COVID-19 of Medicine Vaccine (1)] Future Scheduled 2020-10-30 TETANUS SHOT (ADULT) [employer] Test 09:03:34 [code = TETANUS SHOT of Medi cine (ADULT)] Future Scheduled 2020-10-30 Diabetic foot [facility] Test 09:03:34 examination of Medicine (regime/therapy) [code = 692038803] Future Scheduled 2020-10-30 Hepatitis C [facility] Test 09:03:34 screening of Medicine (procedure) [code = 526978090] Future Scheduled 2020-10-30 ZOSTER VACCINE (1 of [employer] Test 09:03:34 2) [code = ZOSTER of Medicin e VACCINE (1 of 2)] Future Scheduled 2020-10-30 PNEUMOVAX >=65 [facility] Test 09:03:34 (PPSV23) [code = of Medicine PNEUMOVAX >=65 (PPSV23)] Future Scheduled 2020-10-30 ANNUAL DIABETIC [facility] Test 09:03:34 RETINOPATHY of Medicine SCREENING [code = ANNUAL DIABETIC RETINOPATHY SCREENING] Future Scheduled 2020-10-30 MEDICARE IPPE [facility] Test 09:03:34 (WELCOME TO of Medicine MEDICARE) [code = MEDICARE IPPE (WELCOME TO MEDICARE)] Future Scheduled 2020-10-30 FLU VACCINE > 6 [facility] Test 09:03:34 MONTHS [code = FLU of Medici ne VACCINE > 6 MONTHS] Future Scheduled 2020-10-30 BMI FOLLOW UP PLAN [employer] Test 09:03:34 [code = BMI FOLLOW of Medici ne UP PLAN] Future Scheduled 2020-10-30 FALL SCREEN [code = [employer] Test 09:03:34 FALL SCREEN] of Medicine Future Scheduled 2020-10-30 COVID-19 Vaccine (1) [employer] Test 09:03:34 [code = COVID-19 of Medicine Vaccine (1)] Future Scheduled 2020-10-30 TETANUS SHOT (ADULT) [employer] Test 09:03:34 [code = TETANUS SHOT of Medi cine (ADULT)] Future Scheduled 2020-10-30 Diabetic foot [facility] Test 09:03:34 examination of Medicine (regime/therapy) [code = 401168813] Future Scheduled 2020-10-30 Hepatitis C [facility] Test 09:03:34 screening of Medicine (procedure) [code = 723663421] Future Scheduled 2020-10-30 ZOSTER VACCINE (1 of [employer] Test 09:03:34 2) [code = ZOSTER of Medicin e VACCINE (1 of 2)] Future Scheduled 2020-10-30 PNEUMOVAX >=65 [facility] Test 09:03:34 (PPSV23) [code = of Medicine PNEUMOVAX >=65 (PPSV23)] Future Scheduled 2020-10-30 ANNUAL DIABETIC [facility] Test 09:03:34 RETINOPATHY of Medicine SCREENING [code = ANNUAL DIABETIC RETINOPATHY SCREENING] Future Scheduled 2020-10-30 MEDICARE IPPE [facility] Test 09:03:34 (WELCOME TO of Medicine MEDICARE) [code = MEDICARE IPPE (WELCOME TO MEDICARE)] Future Scheduled 2020-10-30 FLU VACCINE > 6 [facility] Test 09:03:34 MONTHS [code = FLU of Medici ne VACCINE > 6 MONTHS] Future Scheduled 2020-10-30 BMI FOLLOW UP PLAN [employer] Test 09:03:34 [code = BMI FOLLOW of Medici ne UP PLAN] Future Scheduled 2020-10-30 FALL SCREEN [code = [employer] Test 09:03:34 FALL SCREEN] of Medicine Future Scheduled 2020-10-16 XR FOOT RIGHT 1 Occurrences [facility] Test 12:25:23 (COMPLETE) [code = [place] [address]-1] 10/16/2020 until 10/16/2021 Future Scheduled 2020-10-16 XR FOOT RIGHT 1 Occurrences [facility] Test 12:25:23 (COMPLETE) [code = [place] [address]-3] 10/16/2020 until 10/16/2021 Future Scheduled 2020-10-16 WOUND CARE Ordered: [facility] Test 12:24:46 INSTRUCTIONS [code = 10/16/2020 of [place] 00538] Future Scheduled 2020-10-16 WOUND CARE Ordered: [facility] Test 12:24:46 INSTRUCTIONS [code = 10/16/2020 of [place] 90122] Future Scheduled 2020-10-16 WOUND CARE Ordered: [facility] Test 12:20:05 INSTRUCTIONS [code = 10/16/2020 of [place] 12224] Future Scheduled 2020-10-16 WOUND CARE Ordered: [facility] Test 12:20:05 INSTRUCTIONS [code = 10/16/2020 of [place] 86765] Future Scheduled 2020-10-[address] [facility] Test 00:00:00 (#1) [code = [facility] INFLUENZA VACCINE (#1)] Future Scheduled 2020-10-04 COVID-19 Vaccine (1) [facility] Test 12:36:13 [code = COVID-19 of Medicine Vaccine (1)] Future Scheduled 2020-10-04 TETANUS SHOT (ADULT) [facility] Test 12:36:13 [code = TETANUS SHOT of [place] (ADULT)] Future Scheduled 2020-10-04 Diabetic foot [facility] Test 12:36:13 examination of Medicine (regime/therapy) [code = 136326549] Future Scheduled 2020-10-04 Hepatitis C [facility] Test 12:36:13 screening of Medicine (procedure) [code = 802909526] Future Scheduled 2020-10-04 ZOSTER VACCINE (1 of [facility] Test 12:36:13 2) [code = ZOSTER of Medicin e VACCINE (1 of 2)] Future Scheduled 2020-10-04 PNEUMOVAX >=65 [facility] Test 12:36:13 (PPSV23) [code = of Medicine PNEUMOVAX >=65 (PPSV23)] Future Scheduled 2020-10-04 ANNUAL DIABETIC [facility] Test 12:36:13 RETINOPATHY of Medicine SCREENING [code = ANNUAL DIABETIC RETINOPATHY SCREENING] Future Scheduled 2020-10-04 MEDICARE IPPE [facility] Test 12:36:13 (WELCOME TO of Medicine MEDICARE) [code = MEDICARE IPPE (WELCOME TO MEDICARE)] Future Scheduled 2020-10-04 FLU VACCINE > 6 [facility] Test 12:36:13 MONTHS [code = FLU of Medici ne VACCINE > 6 MONTHS] Future Scheduled 2020-10-04 BMI FOLLOW UP PLAN [facility] Test 12:36:13 [code = BMI FOLLOW of Medici ne UP PLAN] Future Scheduled 2020-10-04 FALL SCREEN [code = [facility] Test 12:36:13 FALL SCREEN] of Medicine Future Scheduled 2020-10-03 US ARTERIAL LEG 1 Occurrences [facility] Test 14:20:41 RIGHT [code = 40441] starting of [place] 10/03/2020 until 10/03/2021 Future Scheduled 2020-10-03 WOUND CARE Ordered: [facility] [employer] Test 14:18:36 INSTRUCTIONS [code = 10/03/2020 of [place] 59936] Future Scheduled 2020-10-03 XR FOOT RIGHT 2 1 Occurrences [facility] Test 14:02:12 VIEWS STANDING [code starting of [place] = 93388] 10/03/2020 until 10/03/2021 Future Scheduled 2020-10-03 XR FOOT RIGHT AP AND 1 Occurrences [facility] Test 14:02:12 LATERAL [code = starting of Medicine 35037-4] 10/03/2020 until 10/03/2021 Future Scheduled 2020-10-01 COVID-19 Vaccine (1) [facility] [employer] Test 14:09:03 [code = COVID-19 of Medicine Vaccine (1)] Future Scheduled 2020-10-01 TETANUS SHOT (ADULT) [facility] [employer] Test 14:09:03 [code = TETANUS SHOT of [place] (ADULT)] Future Scheduled 2020-10-01 Diabetic foot [facility] Test 14:09:03 examination of Medicine (regime/therapy) [code = 045330360] Future Scheduled 2020-10-01 Hepatitis C [facility] [employer] Test 14:09:03 screening of Medicine (procedure) [code = 209852983] Future Scheduled 2020-10-01 ZOSTER VACCINE (1 of [facility] Test 14:09:03 2) [code = ZOSTER of Medicin e VACCINE (1 of 2)] Future Scheduled 2020-10-01 PNEUMOVAX >=65 [facility] Test 14:09:03 (PPSV23) [code = of Medicine PNEUMOVAX >=65 (PPSV23)] Future Scheduled 2020-10-01 ANNUAL DIABETIC [facility] Test 14:09:03 RETINOPATHY of Medicine SCREENING [code = ANNUAL DIABETIC RETINOPATHY SCREENING] Future Scheduled 2020-10-01 MEDICARE IPPE [facility] Test 14:09:03 (WELCOME TO of Medicine MEDICARE) [code = MEDICARE IPPE (WELCOME TO MEDICARE)] Future Scheduled 2020-10-01 FLU VACCINE > 6 [facility] Test 14:09:03 MONTHS [code = FLU of Medici ne VACCINE > 6 MONTHS] Future Scheduled 2020-10-01 BMI FOLLOW UP PLAN [facility] Test 14:09:03 [code = BMI FOLLOW of Medici ne UP PLAN] Future Scheduled 2020-10-01 FALL SCREEN [code = [facility] Test 14:09:03 FALL SCREEN] of Medicine Future Scheduled 2020-09-05 COVID-19 Vaccine (1) [facility] Test 11:08:02 [code = COVID-19 of Medicine Vaccine (1)] Future Scheduled 2020-09-05 TETANUS SHOT (ADULT) [facility] Test 11:08:02 [code = TETANUS SHOT of Medi cine (ADULT)] Future Scheduled 2020-09-05 Diabetic foot [facility] Test 11:08:02 examination of Medicine (regime/therapy) [code = 346189154] Future Scheduled 2020-09-05 Hepatitis C [facility] Test 11:08:02 screening of Medicine (procedure) [code = 408328140] Future Scheduled 2020-09-05 ZOSTER VACCINE (1 of [facility] Test 11:08:02 2) [code = ZOSTER of Medicin e VACCINE (1 of 2)] Future Scheduled 2020-09-05 PNEUMOVAX >=65 [facility] Test 11:08:02 (PPSV23) [code = of Medicine PNEUMOVAX >=65 (PPSV23)] Future Scheduled 2020-09-05 ANNUAL DIABETIC [facility] Test 11:08:02 RETINOPATHY of Medicine SCREENING [code = ANNUAL DIABETIC RETINOPATHY SCREENING] Future Scheduled 2020-09-05 MEDICARE IPPE [facility] Test 11:08:02 (WELCOME TO of Medicine MEDICARE) [code = MEDICARE IPPE (WELCOME TO MEDICARE)] Future Scheduled 2020-09-05 FLU VACCINE > 6 [facility] Test 11:08:02 MONTHS [code = FLU of Medici ne VACCINE > 6 MONTHS] Future Scheduled 2020-09-05 BMI FOLLOW UP PLAN [facility] Test 11:08:02 [code = BMI FOLLOW of Medici ne UP PLAN] Future Scheduled 2020-09-05 FALL SCREEN [code = [facility] [place] Test 11:08:02 FALL SCREEN] of Medicine Future Scheduled 2020-09-04 XR FOOT RIGHT 1 Occurrences [facility] Test 11:12:34 (COMPLETE) [code = [place] [address]-8] 09/04/2020 until 09/04/2021 Future Scheduled 2020-09-02 COVID-19 Vaccine (1) [facility] Test 21:21:23 [code = COVID-19 of Medicine Vaccine (1)] Future Scheduled 2020-09-02 TETANUS SHOT (ADULT) [facility] Test 21:21:23 [code = TETANUS SHOT of Medi cine (ADULT)] Future Scheduled 2020-09-02 Diabetic foot [facility] Test 21:21:23 examination of Medicine (regime/therapy) [code = 549687488] Future Scheduled 2020-09-02 Hepatitis C [facility] Test 21:21:23 screening of Medicine (procedure) [code = 366520054] Future Scheduled 2020-09-02 ZOSTER VACCINE (1 of [facility] Test 21:21:23 2) [code = ZOSTER of Medicin e VACCINE (1 of 2)] Future Scheduled 2020-09-02 PNEUMOVAX >=65 [facility] Test 21:21:23 (PPSV23) [code = of Medicine PNEUMOVAX >=65 (PPSV23)] Future Scheduled 2020-09-02 ANNUAL DIABETIC [facility] Test 21:21:23 RETINOPATHY of Medicine SCREENING [code = ANNUAL DIABETIC RETINOPATHY SCREENING] Future Scheduled 2020-09-02 MEDICARE IPPE [facility] Test 21:21:23 (WELCOME TO of Medicine MEDICARE) [code = MEDICARE IPPE (WELCOME TO MEDICARE)] Future Scheduled 2020-09-02 FLU VACCINE > 6 [facility] Test 21:21:23 MONTHS [code = FLU of Medici ne VACCINE > 6 MONTHS] Future Scheduled 2020-09-02 BMI FOLLOW UP PLAN [facility] Test 21:21:23 [code = BMI FOLLOW of Medici ne UP PLAN] Future Scheduled 2020-09-02 FALL SCREEN [code = [employer] Test 21:21:23 FALL SCREEN] of Medicine Future Scheduled 2020-08-07 COVID-19 Vaccine (1) [facility] Test 10:20:20 [code = COVID-19 of Medicine Vaccine (1)] Future Scheduled 2020-08-07 TETANUS SHOT (ADULT) [facility] Test 10:20:20 [code = TETANUS SHOT of Medi cine (ADULT)] Future Scheduled 2020-08-07 Diabetic foot [facility] Test 10:20:20 examination of Medicine (regime/therapy) [code = 348790242] Future Scheduled 2020-08-07 Hepatitis C [facility] Test 10:20:20 screening of Medicine (procedure) [code = 354463603] Future Scheduled 2020-08-07 ZOSTER VACCINE (1 of [facility] Test 10:20:20 2) [code = ZOSTER of Medicin e VACCINE (1 of 2)] Future Scheduled 2020-08-07 PNEUMOVAX >=65 [facility] Test 10:20:20 (PPSV23) [code = of Medicine PNEUMOVAX >=65 (PPSV23)] Future Scheduled 2020-08-07 ANNUAL DIABETIC [facility] Test 10:20:20 RETINOPATHY of Medicine SCREENING [code = ANNUAL DIABETIC RETINOPATHY SCREENING] Future Scheduled 2020-08-07 MEDICARE IPPE [facility] Test 10:20:20 (WELCOME TO of Medicine MEDICARE) [code = MEDICARE IPPE (WELCOME TO MEDICARE)] Future Scheduled 2020-08-07 FLU VACCINE > 6 [facility] Test 10:20:20 MONTHS [code = FLU of Medici ne VACCINE > 6 MONTHS] Future Scheduled 2020-08-07 BMI FOLLOW UP PLAN [employer] Test 10:20:20 [code = BMI FOLLOW of Medici ne UP PLAN] Future Scheduled 2020-08-07 FALL SCREEN [code = [employer] Test 10:20:20 FALL SCREEN] of Medicine Future Scheduled 2020-08-07 US ARTERIAL LEG 1 Occurrences [facility] Test 09:52:01 RIGHT [code = 74442] starting of Medi cine 08/07/2020 until 08/07/2021 Future Scheduled 2020-08-06 COVID-19 Vaccine (1) [employer] Test 08:20:27 [code = COVID-19 of Medicine Vaccine (1)] Future Scheduled 2020-08-06 TETANUS SHOT (ADULT) [employer] Test 08:20:27 [code = TETANUS SHOT of Medi cine (ADULT)] Future Scheduled 2020-08-06 Diabetic foot [facility] Test 08:20:27 examination of Medicine (regime/therapy) [code = 416809076] Future Scheduled 2020-08-06 Hepatitis C [facility] Test 08:20:27 screening of Medicine (procedure) [code = 668399752] Future Scheduled 2020-08-06 ZOSTER VACCINE (1 of [facility] Test 08:20:27 2) [code = ZOSTER of Medicin e VACCINE (1 of 2)] Future Scheduled 2020-08-06 FALL SCREEN [code = [employer] Test 08:20:27 FALL SCREEN] of Medicine Future Scheduled 2020-08-06 PNEUMOVAX >=65 [facility] Test 08:20:27 (PPSV23) [code = of Medicine PNEUMOVAX >=65 (PPSV23)] Future Scheduled 2020-08-06 ANNUAL DIABETIC [facility] Test 08:20:27 RETINOPATHY of Medicine SCREENING [code = ANNUAL DIABETIC RETINOPATHY SCREENING] Future Scheduled 2020-08-06 MEDICARE IPPE [facility] Test 08:20:27 (WELCOME TO of Medicine MEDICARE) [code = MEDICARE IPPE (WELCOME TO MEDICARE)] Future Scheduled 2020-08-06 FLU VACCINE > 6 [facility] Test 08:20:27 MONTHS [code = FLU of Medici ne VACCINE > 6 MONTHS] Future Scheduled 2020-08-06 BMI FOLLOW UP PLAN [facility] Test 08:20:27 [code = BMI FOLLOW of Medici ne UP PLAN] Future Scheduled 2020-08-02 BMI FOLLOW UP PLAN [facility] Test 11:29:43 [code = BMI FOLLOW of Medici ne UP PLAN] Future Scheduled 2020-08-02 COVID-19 Vaccine (1) [employer] Test 08:17:30 [code = COVID-19 of Medicine Vaccine (1)] Future Scheduled 2020-08-02 TETANUS SHOT (ADULT) [employer] Test 08:17:30 [code = TETANUS SHOT of Medi cine (ADULT)] Future Scheduled 2020-08-02 Diabetic foot [facility] Test 08:17:30 examination of Medicine (regime/therapy) [code = 800003410] Future Scheduled 2020-08-02 Hepatitis C [facility] Test 08:17:30 screening of Medicine (procedure) [code = 713037866] Future Scheduled 2020-08-02 ZOSTER VACCINE (1 of [facility] Test 08:17:30 2) [code = ZOSTER of Medicin e VACCINE (1 of 2)] Future Scheduled 2020-08-02 FALL SCREEN [code = [facility] [place] Test 08:17:30 FALL SCREEN] of Medicine Future Scheduled 2020-08-02 PNEUMOVAX >=65 [facility] Test 08:17:30 (PPSV23) [code = of Medicine PNEUMOVAX >=65 (PPSV23)] Future Scheduled 2020-08-02 ANNUAL DIABETIC [facility] Test 08:17:30 RETINOPATHY of Medicine SCREENING [code = ANNUAL DIABETIC RETINOPATHY SCREENING] Future Scheduled 2020-08-02 MEDICARE IPPE [facility] Test 08:17:30 (WELCOME TO of Medicine MEDICARE) [code = MEDICARE IPPE (WELCOME TO MEDICARE)] Future Scheduled 2020-08-02 FLU VACCINE > 6 [facility] Test 08:17:30 MONTHS [code = [...] [facility] Test 00:00:00 protein (procedure) [facility] [code = 682296934] Future Scheduled 2018-01-30 Urine screening for [facility] Test 00:00:00 protein (procedure) [facility] [code = 785977835] Future Scheduled 2017-02-[address] [...] 00:00:00 (1 of 1 - Medical Center [id number] [id number]) [code = PNEUMOCOCCAL 65+ YRS (1 of 1 - [id number])] Future Scheduled 2008-06-12 PNEUMOCOCCAL 65+ YRS [...] [facility] of 2) [code = [facility] SHINGLES VACCINES (1 of 2)] Future [...] 00:00:00 examination Medical Center (regime/therapy) [code = 756116237] Future Scheduled 1953-[birth year]-[address] DI[address] EYE EXAM [facility] Test 00:00:00 [code = DIABETIC EYE [facility] Center EXAM] Future Scheduled 1955-06-[address] [facility] [facility] Test [facility] examination Medical Center (regime/therapy) [code = 278319324] Future Scheduled 1950-06-12 COVID-19 VACCINE (1) [facility] Test 00:00:00 [code = COVID-[address] VACCINE (1)] Encounters Start End Encounter Admission Attending Care Care Encounter Source Date/Time Date/Time Type Type Clinicians Facility Department ID 2021-07-16 2021-07-16 Outpatient ROMMEL DUONG [facility] [id number] [facility] 09:42:36 10:33:24 ALEKSANDR [facility] 2021-06-12 2021-06-12 Outpatient [facility] [id number] [facility] 13:49:56 15:09:32 Abhay [facility] 2021-06-12 2021-06-12 Office ROMMEL DUONG [id number] [facility] 12:17:44 13:54:09 Visit ALEKSANDR AMBULATOR [id number] College Y [id number] [facility] 825 e 2021-05-31 2021-06-05 Inpatient UR WYATT [facility] [id number] [facility] 11:58:00 17:01:00 MRINALINI 2021-06-04 2021-06-04 Surgery Justin [facility] [id number] 12:00:00 14:05:00 Aleksandr [facility] 2021-06-04 2021-06-04 Anesthesia Edward [facility] [id number] 12:27:00 13:30:00 Event [facility] 2021-06-03 2021-06-03 Surgery Eduin [facility] [id number] 07:30:00 10:13:00 [facility] 2020-11-27 2020-11-27 Office Eduin MALENATracy 1.2.840.114 [id number] [facility] 13:12:32 14:05:32 Visit Eli AMBULATOR 350.1.13.21 College Y 0.2.7.2.686 of [id number] Medi perla 825 e 2020-11-27 2020-11-27 Outpatient [facility] [id number] [facility] 10:48:51 13:45:39 Colleg e of Medicin e 2020-11-11 2020-11-11 Outpatient [facility] [id number] [facility] 00:00:00 23:59:00 [facility]in e 2020-11-11 2020-11-[address] [facility] Surgery [id number] SLE 07:29:00 17:16:00 [facility] 2020-11-11 2020-11-11 Hospital TRINITY Denny [facility] [id number] 07:29:00 17:16:00 Encounter [facility] 2020-11-11 2020-11-11 Surgery Eduin [facility] [id number] 14:05:00 16:39:00 [facility] 2020-11-07 2020-11-07 Office Eli Esteban [facility] [id number] 11:45:00 12:00:00 Visit Sunny [facility] 2020-11-07 2020-11-07 Outpatient [facility] [id number] SLE 00:00:00 00:00:00 2020-11-07 2020-11-07 Orders [facility] [id number] 00:00:00 00:00:00 [facility] 2020-10-30 2020-10-30 Office ROMMEL Denny 1.2.840.114 [id number] [facility] 08:31:33 08:46:33 Visit Eli AMBULATOR 350.1.13.21 College Y 0.2.7.2.686 of [id number] [facility] 825 e 2020-10-30 2020-10-30 Outpatient DEMETRICEWARREN [facility] [id number] [facility] 08:31:57 08:31:57 ALEKSANDR Ericg e of Medicin e 2020-10-24 2020-10-25 Outpatient [facility] [id number] [facility] 14:55:13 08:48:45 Colleg e [facility] Medicin e 2020-10-16 2020-10-16 [facility] [id number] 13:03:24 23:59:00 Encounter Aleksandr [facility] 2020-10-16 2020-10-16 Office Demetricewarren MALENA 1.2.840.114 [id number] [facility] 11:14:16 12:32:32 Visit Aleksandrjefe Cross AMBULATOR 350.1.13.21 College Y 0.2.7.2.686 of [id number] [facility] 825 e 2020-10-16 2020-10-16 [facility] [id number] SLE 00:00:00 00:00:00 ALEKSANDR 2020-10-16 2020-10-16 [facility] [id number] 00:00:00 00:00:00 Orders Aleksandr [facility] 2020-10-03 2020-10-03 Office ROMMEL Duong 1.2.840.114 [id number] [facility] 12:47:24 14:32:56 Visit Aleksandrjefe Cross AMBULATOR 350.1.13.21 College Y 0.2.7.2.686 of [id number] [facility] 825 e 2020-09-04 2020-09-04 [facility] [id number] 11:50:00 23:59:00 Encounter Aleksandr [facility] 2020-09-04 2020-09-04 Office Lepwarren, BCM 1.2.840.[id number] [place] [address] 10:11:54 11:24:16 Visit Aleksandr Cross AMBULATOR 350.1.13.21 College Y 0.2.7.2.686 of [id number] [facility] 825 e 2020-09-04 2020-09-04 Outpatient [place], [facility] SLE [id number] SLE 00:00:00 00:00:00 ALEKSANDR 2020-09-04 2020-09-04 Outside Lepow, [facility] [id number] [facility] 00:00:00 00:00:00 Orders Aleksandr [facility] 2020-08-21 2020-08-21 Office Justin, BCM 1.2.840.114 [id number] 10:04:48 11:02:48 Visit Aleksandr Cross AMBULATOR 350.1.13.21 Y 0.2.7.2.686 [id number] [facility] 2020-08-21 2020-08-21 Office Justin, BCM 1.2.840.[id number] [place] [address] 10:04:48 11:02:48 Visit Aleksandr Cross AMBULATOR 350.1.13.21 College Y 0.2.7.2.686 of [id number] [facility] 825 e 2020-08-07 2020-08-07 Office Justin, BCM 1.2.840.114 [id number] [facility] 09:18:28 10:13:08 Visit Aleksandr Cross AMBULATOR 350.1.13.21 College Y 0.2.7.2.686 of [id number] [facility] 825 e 2020-08-07 2020-08-07 Office Justin, BCM 1.2.840.114 [id number] 09:18:28 10:13:08 Visit Aleksandr Cross AMBULATOR 350.1.13.21 Y 0.2.7.2.686 [id number] [facility] 2020-08-07 2020-08-07 Office Denny, BCM 1.2.840.114 [id number] [facility] 09:18:00 09:33:00 Visit Jayer AMBULATOR 350.1.13.21 College Y 0.2.7.2.686 of [id number] [facility] 825 e 2020-08-07 2020-08-07 Office ROMMEL Denny 1.2.840.114 [id number] 09:18:00 09:33:00 Visit Jayer AMBULATOR 350.1.13.21 Y 0.2.7.2.686 [id number] [facility] 2020-07-25 2020-07-25 Office ROMMEL Kaur 1.2.120.112 [id number] [facility] 10:24:58 11:19:37 Visit Peg AMBULATOR 350.1.13.21 College Raejoy Y 0.2.7.2.686 of [id number] [facility] 825 e 2020-07-25 2020-07-25 Office ROMMEL Kaur 1.2.556.864 [id number] 10:24:58 11:19:37 Visit Peg AMBULATOR 350.1.13.21 Raejoy Y 0.2.7.2.686 [id number] [facility] 2020-07-17 2020-07-17 Office ROMMEL Duong 1.2.840.[id number] [place] [address] 09:14:49 10:09:41 Visit Aleksandr Cross AMBULATOR 350.1.13.21 College Y 0.2.7.2.686 of [id number] [facility] 825 e 2020-07-17 2020-07-17 Office ROMMEL Duong 1.2.840.114 [id number] 09:14:49 10:09:41 Visit Aleksandr Cross AMBULATOR 350.1.13.21 Y 0.2.7.2.686 [id number] [facility] 2020-06-25 2020-07-05 [facility] Suri Chahal [facility] [id number] [facility] 16:34:00 16:36:00 [facility] 2020-07-02 2020-07-02 Surgery Justin, [facility] [id number] 12:35:00 14:40:00 Aleksandr Cross [facility] 2020-07-02 2020-07-02 Anesthesia Ijeoma, [facility] [id number] 12:53:00 13:53:00 Event [facility] 2020-07-02 2020-07-02 Orders [facility] [id number] 00:00:00 00:00:00 Only [facility] 2020-06-28 2020-06-28 Surgery Denny, [facility] [id number] 19:05:00 22:10:00 [facility] 2020-06-26 2020-06-26 Travel [facility] [id number] [facility] 00:00:00 00:00:00 [facility] 2020-06-25 2020-06-[address] [facility] Emergency [id number] [facility] 15:48:00 15:48:00 2016-09-11 2016-09-12 Bedded [facility] [id number] 15:41:00 21:00:[address] 2014-03-06 2014-03-06 Day [facility] [id number] 16:57:00 21:00:[address] Results Test Description Test Time Test Comments Results Result [facility] e Comments TISSUE EXAM 2021-06-14 Surgical Pathology 21:10:16 Report Case: [id number] Authorizing Provider: Aleksandr Duong DPM Collected: 06/04/2021 01:00 PM Ordering Location: [facility] PERIOPERATIVE Received: 06/04/2021 01:45 PM SERVICES Pathologist: [...] ACUTE OSTEOMYELITIS Signing Pathologist Direct Phone Line: [phone] ically signed by Mattie Varma MD on 06/14/2021 at 9:10 [id number] X 2, [id number] X 2Osteomyelitis ankle and foot Left footA. [...] The bone underlying the ulcerated lesion is coley-morales and soft.Section code:B1: Ulcer to proximal margin (blue ink)B2: Uninvolved proximal margin skin, en faceB3: Bone underlying ulcer, following decalcificationB4: disarticulated end, following decalcificationSHPer formed.[facility], Department of Pathology, [address] [place] [address], [facility]tv[facility], [facility] of [facility]ology, [address] [place] [address], AqdhhxS[facility], Department of Pathology, [address] [place] [address] 88577, RAD, FOOT, MIN 3 2021-06-05 Reason for VIEWS, LEFT 13:10:00 exam:->Post op [facility] CENTERName: LEVI COLEY KRYSTA : 1945 Sex: M *FINAL REPORT [...] toe without definite erosion. Signed: Jayesh Lino MDReport Verified Date/Time: 06/05/2021 13:10:20 (CELLAVISION MANUAL DIFF) [...] CONCENTRATION (CELLAVISION)(BEAKER) (test code = Adequate 3438) Creative Engagement Director ID - Ponce Dato-onUser comments: Slide comments:CBC W/PLT COUNT & AUTO [id number] 12:27:49 Test Item Value Reference Range Interpretation [...] (BEAKER) (test code = 413) BASIC METABOLIC [id number] 10:35:58 Test Item Value Reference Range Interpretation [...] S NOT APPLICABLE FOR DIALYSIS PATIEN TS. Creative Engagement Director ID - BSPOC-Glucose [id number] 07:57:19 Test Item Value Reference Range Interpretation Comments POC-Glucose Meter (test 180 mg/dL 70-110 H : [facility] [place] [place] 6720 [facility], 770 30: Creative Engagement Director/Techni heather ID = [id number] for ROHIT Murillo Lab Interpretation (test Abnormal code = 50314-8) [facility] [id number] 07:57:19 Test Item Value Reference Range Interpretation Comments POC-GLUCOSE METER 180 mg/dL 70-110 H : TESTED A T [facility] 6720 (BEAKER) (test code [facility], = 1538) 35724: Creative Engagement Director/Techni heather ID = [id number] for MYLES Grant -Dillon, LATAND OG POCT-GLUCOSE [id number] 22:44:00 Test Item Value Reference Range Interpretation Comments POC-GLUCOSE METER 153 mg/dL 70-110 H : TESTED A T [facility] 6720 (BEAKER) (test code = [facility], 1538) 33493: Creative Engagement Director/Techni heather ID = [id number] for DARRION GARRISON POCT-GLUCOSE [id number] 17:03:50 Test Item Value Reference Range Interpretation Comments POC-GLUCOSE METER 148 mg/dL 70-110 H : TESTED A T [facility] 6720 (BEAKER) (test code [facility], = 1538) 46264: Creative Engagement Director/Techni heather ID = [id number] for LEWI S -Dillon, LATAND OG POCT-GLUCOSE [id number] 13:48:08 Test Item Value Reference Range Interpretation Comments POC-GLUCOSE METER 149 mg/dL 70-110 H : TESTED A T [facility] 6720 (BEAKER) (test code = [facility] R [facility], 1538) 89361: Creative Engagement Director/Techni heather ID = [id number] for Brandon cheryle, Moses POCT-GLUCOSE [id number] 08:30:33 Test Item Value Reference Range Interpretation Comments POC-GLUCOSE METER 162 mg/dL 70-110 H : TESTED A T [facility] 6720 (BEAKER) (test code [facility], = 1538) 95642: Creative Engagement Director/Techni heather ID = [id number] for ROSIE So [id number] 05:34:01 Test Item Value Reference Range Interpretation Comments PARTIAL THROMBOPLASTIN TIME 45.4 seconds 22.5-36.0 H (BEAKER) (test code = 760) POCT-GLUCOSE [id number] 22:31:51 Test Item Value Reference Range Interpretation Comments POC-GLUCOSE METER 145 mg/dL 70-110 H : TESTED A T [facility] 6720 (BEAKER) (test code = [facility], 153) 48900: Creative Engagement Director/Techni heather ID = [id number] for MARIO FOX POCT-GLUCOSE [id number] 13:17:41 Test Item Value Reference Range Interpretation Comments POC-GLUCOSE METER 152 mg/dL 70-110 H : TESTED A T [facility] 6720 ([facility]) (test code = [facility], 153) 78826: Creative Engagement Director/Techni heather ID = [id number] for KULWANT FABIOLA UNIQUE POCT-GLUCOSE [id number] 10:28:49 Test Item Value Reference Range Interpretation Comments POC-GLUCOSE METER 132 mg/dL 70-110 H : TESTED A T [facility] 6720 (BEAKER) (test code = [facility], 153) 38678: Creative Engagement Director/Techni heather ID = [id number] for KULWANT HICKS, UNIQUE [id number] 05:42:20 Test Item Value Reference Range Interpretation Comments PARTIAL THROMBOPLASTIN TIME 109.7 seconds 22.5-36.0 H (BEAKER) (test code = 760) [id number] 22:53:04 Test Item Value Reference Range Interpretation Comments PARTIAL THROMBOPLASTIN TIME 102.5 seconds 22.5-36.0 H (BEAKER) (test code = 760) POCT-GLUCOSE [id number] 21:17:31 Test Item Value Reference Range Interpretation Comments POC-GLUCOSE METER 131 mg/dL 70-110 H : TESTED A T [facility] 6720 (BEAKER) (test code = [facility], 153) 28763: Creative Engagement Director/Techni heather ID = [id number] for Bebo dunn (contract)Tyrel ra POCT-GLUCOSE [id number] 17:50:58 Test Item Value Reference Range Interpretation Comments POC-GLUCOSE METER 151 mg/dL 70-110 H : TESTED A T [facility] 6720 (BEAKER) (test code [facility], = 1538) 77282: Creative Engagement Director/Techni heather ID = [id number] for ROSIE So OG [id number] 15:38:28 Test Item Value Reference Range Interpretation Comments PARTIAL THROMBOPLASTIN TIME 57.2 seconds 22.5-36.0 H (BEAKER) (test code = 760) POCT-GLUCOSE [id number] 12:54:42 Test Item Value Reference Range Interpretation Comments POC-GLUCOSE METER 152 mg/dL 70-110 H : TESTED A T [facility] 6720 (BEAKER) (test code [facility], = 1538) 04860: Creative Engagement Director/Techni heather ID = [id number] for MYLES Grant -Dillon, ROSIE OG POCT-GLUCOSE [id number] 08:26:04 Test Item Value Reference Range Interpretation Comments POC-GLUCOSE METER 133 mg/dL 70-110 H : TESTED A T [facility] 6720 (BEAKER) (test code [facility], = 1538) 55480: Creative Engagement Director/Techni heather ID = [id number] for MYLES Grant -Dillon, YAIRAND OG [id number] 08:17:46 Test Item Value Reference Range Interpretation Comments PARTIAL THROMBOPLASTIN TIME 86.4 seconds 22.5-36.0 H (BEAKER) (test code = 760) SRIRAM's Only(Ankle/Brachial Index)2021-06-02 08:03:53Ejection FractionSLEH ECHO HEARTLAB MKCKESSON [facility] 00:44:06 Test Item Value Reference Range Interpretation Comments PARTIAL THROMBOPLASTIN TIME 114.8 seconds 22.5-36.0 H (BEAKER) (test code = 760) POCT-GLUCOSE [id number] 22:35:29 Test Item Value Reference Range Interpretation Comments POC-GLUCOSE METER 161 mg/dL 70-110 H : TESTED A T [facility] 6720 (BEAKER) (test code = SHRAVAN Raymond [facility], 1538) 68657: Creative Engagement Director/Techni heather ID = [id number] for RA DARRION ARIAS Arterial Doppler Legs [id number] 19:15:49Ejection FractionSLEH ECHO HEARTLAB MKCKESSON CPACSCHI [facility] Hospital[facility], MIN 3 VIEWS, LEFT 2021-06-01 18:40:00Reason for exam:->rule out osteo 3rd digit left foot [facility] : 1945 Sex: MFINAL REPORT TECHNIQUE: 3 views of the right foot. INDICATION: rule out osteo 3rd digit left foot. COMPARISON: None. FINDINGS:Erosion of the tuft of the third digit. 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 Extensive calcification of the arteries of the ankle and foot. IMPRESSION: Acute osteomyelitis of the tuft of the third toe. Signed: Jayesh Lino [facility] Verified Date/Time: 06/01/2021 18:40:50 Reading Location: [address] Body Reading Room [id number] 18:31:45 Test Item Value Reference Range Interpretation Comments PARTIAL THROMBOPLASTIN TIME 58.0 seconds 22.5-36.0 H (ERIK) (test code = 760) POCT-GLUCOSE [id number] 17:10:34 Test Item Value Reference Range Interpretation Comments POC-GLUCOSE METER 144 mg/dL 70-110 H : TESTED A T [facility] 6720 (ERIK) (test code = SHRAVAN Raymond [facility], 1538) 59378: Creative Engagement Director/Techni heather ID = [id number] for BESSIE HARPER POCT-GLUCOSE [id number] 12:20:53 Test Item Value Reference Range Interpretation Comments POC-GLUCOSE METER 143 mg/dL 70-110 H : TESTED A T [facility] 6720 (BEAKER) (test code = [facility] Mandi [facility], 1538) 61652: Creative Engagement Director/Techni heather ID = [id number] for BESSIE HARPER [id number] 12:06:45 Test Item Value Reference Range Interpretation Comments PARTIAL THROMBOPLASTIN TIME 63.1 seconds 22.5-36.0 H (BEAKER) (test code = 760) POCT-GLUCOSE [id number] 08:15:50 Test Item Value Reference Range Interpretation Comments POC-GLUCOSE METER 116 mg/dL 70-110 H : TESTED A T [facility] 6720 (BEAKER) (test code = [facility], 1538) 63975: Creative Engagement Director/Techni heather ID = [id number] for BESSIE HARPER VITAMIN B12 AND [id number] 07:04:04 Test Item Value Reference Range Interpretation Comments VITAMIN B12 952 pg/mL 213-816 H (BEAKER) (test code = 774) FOLATE (BEAKER) 13.00 ng/mL See_Comment [Automated message] (test code = 362) The system which generated this result transmitted ref erence range: >=7.00. The reference range was not used to interpr et this result as normal/abnormal . Creative Engagement Director ID - DELORESAYA L(CELLAVISION MANUAL DIFF)2021-06-01 06:54:17 Test Item Value [...] CONCENTRATION Adequate (CELLAVISION)(BEAKER) (test code = 3438) Creative Engagement Director ID - Ponce Dato-onUser comments: Slide comments:CBC W/PLT COUNT & AUTO [id number] 06:54:16 Test Item Value Reference Range Interpretation [...] (BEAKER) (test code = 413) HEPATIC FUNCTION [id number] 06:35:05 Test Item Value Reference Range Interpretation [...] (test code = 11 U/L 6-55 347) Creative Engagement Director ID - DBC-REACTIVE [id number] 06:35:05 Test Item Value Reference Range Interpretation Comments C-REACTIVE PROTEIN (BEAKER) (test 2.32 mg/dL 0.00-0.50 H code = 676) Creative Engagement Director ID - DBBASIC METABOLIC [id number] 06:35:04 Test Item Value Reference Range Interpretation [...] S NOT APPLICABLE FOR DIALYSIS PATIEN TS. Creative Engagement Director ID - [id number] 05:49:53 Test Item Value Reference Range Interpretation Comments PARTIAL THROMBOPLASTIN TIME 41.1 seconds 22.5-36.0 H (BEAKER) (test code = 760) SARS-CoV2/RT-PCR (Asymptomatic ONLY)2021-06-01 05:02:05 Test Item Value Reference Range Interpretation Comments SARS-COV2/RT-PCR Negative Not Detected, (test code = Negative, See 95445-5) external report for linked test SARS-COV-2 [facility] (test code = 35543-1) CACHORRO (test code = Negative result for [...] of the Act. Fact Sheet for Healthcare Providers:https://www.Open Mile/sites/default/f sarah/product/documents/F act_Sheet_HC_Providers_L qpa_ZKBF-ApJ-2.pdf Fact Sheet for Healthcare Patients:https://www..Fox Networks/sites/default/fi les/product/documents/Fa ct_Sheet_Patients_Lyra_S ARS-CoV-2.pdf Performing Laboratory:[facility]ARS-COV2/RT-PCR ([facility])2021-06-01 05:02:05 Test Item Value Reference Range Interpretation Comments SARS-COV2/RT-PCR (test Negative Not Detected, Negative, code = 7970419) See external report for linked test SARS-COV-[address] [facility] (test code = 1240088) Negative result for this test determines that [...] 564(g) of the Act.Fact Sheet for Healthcare Providers:https://www.Sojeans/sites/default/files/product/documents/Fact_Shee t_CA_Rxxmahntj_Muvy_HUUY-MbO-7.pdfFact Sheet for Healthcare Patients:https://www.Sojeans/sites/default/files/product/ documents/Dyrt_Fyypd_Gbbtbutf_Ydiq_GLIG-CfI-6.pdfPerforming Laboratory:[facility], [place] [id number] 23:51:02 Test Item Value Reference Range Interpretation Comments PARTIAL THROMBOPLASTIN TIME 50.6 seconds 22.5-36.0 H (BEAKER) (test code = 760) [id number] 22:57:30 Test Item Value Reference Range Interpretation Comments PARTIAL THROMBOPLASTIN TIME > seconds 22.5-36.0 HH (BEAKER) (test code = 760) POCT-GLUCOSE [id number] 22:35:55 Test Item Value Reference Range Interpretation Comments POC-GLUCOSE METER 149 mg/dL 70-110 H : TESTED A T [facility] 6720 ([email or web address]) (test code = SHRAVAN Raymond [facility], 1538) 86307: Creative Engagement Director/Techni heather ID = [id number] for MARIO FOX POCT-GLUCOSE [id number] 17:26:04 Test Item Value Reference Range Interpretation Comments POC-GLUCOSE METER 187 mg/dL 70-110 H : TESTED A T [facility] 6720 (BEAKER) (test code = SHRAVAN PABLO [place], 1538) 87271: Creative Engagement Director/Techni heather ID = [id number] for ZIGGY CAMILO BASIC METABOLIC [id number] 15:13:01 Test Item Value Reference Range Interpretation [...] S NOT APPLICABLE FOR DIALYSIS PATIEN TS. Creative Engagement Director ID - ASRBJIT [id number] 15:10:38 Test Item Value Reference Range Interpretation [...] 0-0 (BEAKER) (test code = 413) POCT-GLUCOSE [id number] 16:02:46 Test Item Value Reference Range Interpretation Comments POC-GLUCOSE METER 75 mg/dL 70-110 : TESTED A T [facility] 6720 (BEAKER) (test code = [facility], 1538) 27929: Creative Engagement Director/Techni heather ID = [id number] for LINDA MCHUGH RAA POCT-GLUCOSE [id number] 15:30:00 Test Item Value Reference Range Interpretation Comments POC-GLUCOSE METER 74 mg/dL 70-110 : TESTED A T [facility] 6720 (BEAKER) (test code = [facility], 1538) 76468: Creative Engagement Director/Techni heather ID = [id number] for Go Aloah BASIC METABOLIC [id number] 09:36:15 Test Item Value Reference Range Interpretation [...] S NOT APPLICABLE FOR DIALYSIS PATIEN ENOC. Creative Engagement Director ID - NIURKA [id number] 09:30:12 Test Item Value Reference Range Interpretation Comments PARTIAL THROMBOPLASTIN TIME 33.8 seconds 22.5-36.0 (BEAKER) (test code = 760) Prothrombin time/[id number] 09:29:16 Test Item Value Reference Interpretation Comments Range Protime (test code = 16.6 See_Comment H [Autom ated 9502-2) message] The system which generated this result transmitted reference range : 11.9 - 14.2 seconds. The reference range was not used to interpret this result as normal/abnormal . INR (test code = 1.36 See_Comment [Automated 8851-6) message] The system which generated this result [...] valves. Lab Interpretation Abnormal (test code = 77191-8) [facility] CenterPROT[facility]OM[facility] TIME/[id number] 09:29:16 Test Item Value Reference Range Interpretation Comments PROTIME (BEAKER) 16.6 seconds 11.9-14.2 H (test code = 759) INR (BEAKER) (test 1.36 See_Comment [Automat ed message] code = 370) The system whic h generated this result transmitted ref erence range: [...] 0-0 (BEAKER) (test code = 413) SARS-COV2/RT-PCR ([facility])2020-11-07 20:30:42 Test Item Value Reference Range Interpretation Comments SARS-COV2/RT-PCR (test code = Negative Negative 8789927) Negative result for this test determines that [...] the Pacheco SARS-CoV-2 assay.Fact Sheet for Healthcare Providers:https://www.[employer]N [employer].Prezma/libby/RT SARS-CoV-2 HCP Fact Sheet 51- 606614.pdfFact Sheet for Healthcare Patients:https://www.[employer].Prezma/libby/RT SARS-CoV-2 Patient Fact Sheet EN 51-872684A2.pdfCB W/PLT COUNT & AUTO [id number] 14:10:03 Test Item Value Reference Range Interpretation [...] CONCENTRATION Decreased (CELLAVISION)(BEAKER) (test code = 3438) Creative Engagement Director ID - Carolina FernandezUser comments: Slide comments:BASIC METABOLIC [id number] 12:39:39 Test Item Value Reference Range Interpretation [...] S NOT APPLICABLE FOR DIALYSIS PATIEN TS. Creative Engagement Director ID - SARBJIT MPROTHROMBIN TIME/[id number] 11:55:55 Test Item Value Reference Range Interpretation Comments PROTIME (BEAKER) 18.8 seconds 11.9-14.2 H (test code = 759) INR (BEAKER) (test 1.60 See_Comment [Automat ed message] code = 370) The system [employer] generated this result transmitted ref erence range: <=5.90. The reference range was not used to int erpret this result as normal/abnormal . RECOMMENDED COUMADIN/WARFARIN INR THERAPY RANGESSTANDARD DOSE: 2.0 - 3.0 Includes: PROPHYLAXIS forvenous thrombosis, systemic embolization; TREATMENT for venous thrombosis and/or pulmonary embolus.HIGH RISK: Target INR is 2.5-3.5 for patients with mechanical heart valves.RAD, FOOT, MIN 3 VIEWS, [id number] 14:28:00Reason for Exam:->STATUS POST AMPUTATION OF RIGHT GREAT TOEReason for Exam:->RIGHT FOOT PAIN [facility] CENTERName: LEVI COLEY KRYSTA : 1945 Sex: MFINAL REPORT Exam: Right foot three views History: Amputation Comparison: August 27, 2020 Findings: Amputation across the hallux MTP joint. Overlying soft tissue irregularity. Soft tissue swelling. No progressive erosive change of the metatarsal. Vascular calcifications. Small calcaneal enthesophytes. Impression: Amputation across the hallux MTP joint. No progressive osteomyelitis. Signed: Barbara Eubanks Verified Date/Time: 10/16/2020 14:28:01 Reading Location: [facility] Reading Room [address] [place] [address] Electronically signed by: Barbara Eubanks on 102:28 PMRAD, FOOT, MIN 3 VIEWS, [id number] 12:32:00Reason for Exam:->post-operative stateReason for Exam:->status post amputation of right great toe [facility] CENTERName: LEVI COLEY KRYSTA : 1945 Sex: MFINAL REPORT Exam: [...] of osteomyelitis. Attention on follow-up. Signed: Barbara uEbanks Verified Date/Time: 09/04/2020 12:32:23 Reading Location: [employer] Reading Room [address] [place] [address] XR foot 3 views [id number] 12:32:00Interface, External Ris In - 09/04/2020 12:34 [...] Eubanks Verified Date/Time: 09/04/2020 12:32:23 Reading Location: [employer] Reading Room [address] [place] [address] [facility] [id number] 16:35:00 Test Item Value Reference Range Interpretation Comments Case Report (test code Surgical Pathology = 104) Report Case: [id number] Authorizing Provider: Aleksandr Duong DPM Collected: 07/02/2020 01:10 PM Ordering Location: [facility] PERIOPERATIVE Received: 07/02/2020 01:28 PM SERVICES Pathologist: Nadine Butler MD Specimen: Toe, Right, right great toe DIAGNOSIS (test code = [id number] 3220) uZzEwMzNcZnRuYmpcdWMxIH tccnRmMVxlcGljOTIwMlxhb gHxYQKkkFSjS1KqaedmZApd KX0qZN5msHdgeUQczSJeWEA dAkSjg7ssx185yASqa8taAX MCxdwzuGo8jKwdS52kf8Q4W mqrU61rhYSuAZzsbDDyeoog ibEcBCCHK6ObEQLDY1tGYLy DKUkWYEmfNW9KIJJNPNwPFg dlxMOqTL3uM5OBW9SBTiFbL N2MS1dBFV9AYODOIF3lFM6K SYQSLmPpSHrAT4RIRMVucaN eZWPOMvCtS3zBRXFLXpRITo 1MVkFDJSVIDWREQJ3KE7FTE 0lTXHBhciAtIFNPRlQgVElT I6GGOOIPUQVKHNWQBMAOHK9 wSS4XS5lFVNAjNvtnSB0RFE ZUHKQPS5FSUHAGD1ZXU2Uij EYiNL7oFMOKJNOLBOTVSURM UlRJTEFHRSBBVCBUSEUgTUF DW4kXKPOSQqXWIDTCH0HETE DwcHFyOJ6qRhFQCNSRTsWpP e0MQM0TUQcGKtGDV6pgwUSc XADhmz60UYT9BkUrn6H5LBR 6ERIoDHGmi9huEZPpxCIcRu EwMzNcZnRuYmpcdWMxXGRlZ fZfs5vzx242aHQjd6zdBTJa GmO2vUIsUPJmoLYhV883GDO oPNawj7qvg3DqIDLznXPup2 U0VCJBnvihbXo8sJcqZ19ux 5M1KvbwC1lrXIRpBWFkK2Fs PW2xNXQhXmb0APP9NSM1TSW fVBNyR2VvBY9dYXDdrLDiBI n8x0dkqYzdSTTbKKR1f2vtP HqfhkNaZG5tni6lzCa4d1au jdSqPAOvKRHyoLUEMBMdZ8N ivTkwQr7ziIm8vUogOlisTY Q5Lri1TY4ikm97twj2zZagR XQsndqwZvC2QNzrQDIvosqw RJw2EZnpCCIjfVQ5VTYypBY uA1JsIOEwEF0tlhs7QZA7WW loAQRaFlN4HLDxfUMaTHGkb BrrTAdqz285EPB2VmTqRT6l C1Hzn8I0jL2mgGPlCMNzfYI wTdUtBCCwiw4shRVoEPvta4 XhLLU1ecV4gPXumJOcNPDcH yB2TNzhAY4jfl87YVOnKON4 dy5nfORouJdovoKjwZZgXKx tD2RlDUVhk250GIGdT3JuXK Dhe2Z8btHjAdBhMUUvfRJ8x yO7UHFdKI7krgdxl3syOHxr XZibQBMxjuP7keD8JYGrwES xT3EkeZ7eOYRyAW7frfvbc5 vfASG1XEiqJESfOBM5OqBiW HHhg4Cjzky7SmWeh2FaqONo FDlzT62kj721OFFnrhHxG2g wbGFpblxwbGFpblxmMFxmcz S9ADRoREhxkvihUZOkOLolH 4etUgZfUORgzGdqBNehl5Ph XGYxXGZzMjJcdGFiXHRhYlx 9VCUxfHHiKFWpDzJaB8vasj qqVnDOWLMpi8kcU7fboOIQm BPfM4MwOHpdroVtJLgaSBlu SNBqOHT3CD31SXR2QRFfbo8 9 CPT Code(s) (test code m7pdcSZlADAgaPL7VqHiUIE = 3357) lt2mtz0AjyYZeoYCrKVcseN VirlYfnl84tET4kV25FZ6qK MImTsX1PYKcjvO1Jkj9UTUv AAEvlNYzP747w7fun4rqllF hsXZ1tWozUWWwEDTjBEpiNT GuClKySCdcANV3PXb8KnLoE HBhcn0= CLINICAL HISTORY (test d2juvTTvPVMulVW8TiDbKAI code = 3356) gl2pag9StpMGjmXFyUAwhcE VdlpLcsa55dFQ8zF63SS1oD QGfPrB9IADbpyY5Myp2XYUt VIOaaLGoQ955i9xzl2vgxvJ aoUN2gXizSFCpMAThGRakRT UdUyVlG9HjH8DffsKiaDXfz Q== SPECIMEN SOURCE (test b4mdtZQdWFFilOB2YvEaAKL code = 3377) dq2eew8CsjGKobEEoWAhecQ SwpeVaol61rBN4gT84OI4kT LIoIlY2KCQdseW7Zen5YYDd CRHgyZExT337c5maf4jpovR ypGD9yKmySTVdYLEhRQalNR DjDiFoLP0mQKSkcDyodQyrB XJ9 GROSS DESCRIPTION e6atmKItBLJlpKRvOwPyTTH (test code = 3366) cPWVbe3zeLIYsyLLiSxUnHh NcZnRuYmpcdWMxXGRlZmYwe 0tjy631fFMzp7wdUAWvSgZ8 kEOwYSBqaGSqE312a0qxy7f wvkDwmII2MUUbCMC9CAhwqr LowfO4JCpjeIHxSkW6YAjhc hNbHDkbrpMwroXzNyu3ZLQi E379FJQ5sVhxj3xcUBK3OWN qDQLuWkBkGj1swLJwV912HK OtUEQVOYSazSt8DUDmlxOwu fUudJIZz257T003a9wiAWXt zsBivGmBqbgpi3tgT483EMN hcGVydzEyMjQwXHBhcGVyaD B5WPIlHJ3zcfmeRbCtFW2yi ufyQiJeHN6kabi4BfMkQZ9p cmdiNzIwXGhlYWRlcnkwXGZ dx7FkewvrNH0xS1Sol2S0sL 9maXRcZGVmdGFiNzIwXGZvc d2reXIiUFabw7NiKKJ6ymM4 zZIldIAnAFMaFJ69Zbiwl9R qEqxbMDM4FXJuxzXue4Nrg6 afPvScolIsC9bbW3JbUGIgW YVoXTMeMtJwgqDog7Ttt3Nv hNCzyKu7r1bmVHNkLXUfvKx zw3ipDIA2FILkC7P2gRJjq6 hmOHifLZQtjEA2zmxdFQanK YVftcN6nfsuKMznGECboEB4 wlrxQCpaKVXkNsH6pifqVTq xGRHlWLK9BHngu250SJR9GT xzYmtwYWdlXHBnbmNvbnRcc GduZGVjXHBsYWluXHBsYWlu XGYwXGZzMjRccWxccGxhaW5 iYzBtKnKxZBhlMH7hGEUeA8 axpBFgRKLjGVRqQ7rjZoFju W3gsBfmRXbokrJhCDTzUEQe Q4CxnjVkJCYlBHYyNLplArE xJBRsv7f8xFN8pMDdnSK1yR YkuWzbEiAjUP2cyJGnZI4nW FiiGYqzecJdl1BjFT94xGCc ciBhbmQgInRvZSwgcmlnaHQ bZTdmODOjCVwqAWU6gRT5zO O1CSWdjR4oUD0uIBM7hbeaG qP8ScZoO02bgP2gyHRhO1Id IGFuZCAzIGNtIGluIGRpYW1 ldGVyLiAgVGhlcmUgaXMgYS Qek17yIWi6AGD2eUSndDVwO EB9iPfeh1OiUVHwAOCidt02 ACbjr9pxuZ4zfMoiVhRyQKb aJYbsdLKqXAgvr0JyFcObBW LyfCDnoOR4uwQbGHAwhLEmG ctzsYLwBuXeX81sK5WkY8En bj78haL4rOEfxiOgw5QinUA rOAWiMgDrfRZmsm4lAGOoFZ Vgz8ynBB9llhsqjlYmytWlR CCykEHgnp8zTYMvDIAqzZEl zkKnX2XeUVIsVPNii60vLcR gYIgwxrOhjIXfYP1qHLS3he WcctFqTK5biY67VS3fPPLhb Z3dYPyzJ07nb9UncYobsyC9 hOKrEWIflACsSUzbIHT4cxD mjI1diG1nCKJwXLE0zUWqch 7uIBErSHB9zvTvtdy0hJ8cU GJvbmUgaXMgcmVkIGFuZCBo OR1zllUfLHhkNfdlLH1lAIX 0oRNdLGIwmOy1PZgdkMweEV RuI7GhlBAnSEZdEUZhWmGmS hTtraTsUQ88LAWcspQoz7Te fHcwieMsPFDrLJR7Gf9cnGL cOS6kqFSfBVCdvuDEXSD3aZ 2pIYYrBSF1LIDkezFUKPavN TsuHLVryS7ekIxpMBPuw7Tk n8Apn5psbuOySQAzrS6hKRY ohOLvNGGiUHQeKP0tyRT8mH BaBIPgF4Osf41zLMjmqWejs N4mPCZvjWtiXkTms61fEMMl q5gpy8xvsjqsKJSiWNmkwZG zS7P8eO9yKPCcjvCTTersOQ fjEOH8gKL9hUM5BONlVH4rI L0pBPKytwVrUUFfMHInN8Lb FPOyrQnjs2hxBiFsZKMsuDC yLbwsTAXkl77bgCCmWHAadl KQsSMxx6LxRBslRGCqMWZXW KGiMJIXDAcQB9VUCIOxJIMw cn0= MICROSCOPIC g9rhkSYkZYBkcCN5VkBjBUH DESCRIPTION (test code ad8gsh8UpeBCbyVKhVTnirN = 3371) CocnAmal31gMR3lR47WA6nV IJxDcB2JOIzkiS8Pie8URHq PBMsqESoC607m7zdz8cnjrL kdOR7uYxtAJArCEMdRUoxWR QfXpQeJKAOAw2QNPSAFQBpl n0= [facility] HospitalTissue [id number] 16:35:00 Test Item Value Reference Range Interpretation Comments Case Report (test code Surgical Pathology = 104) Report Case: [id number] Authorizing Provider: Aleksandr Duong DPM Collected: 07/02/2020 01:10 PM Ordering Location: [facility] PERIOPERATIVE Received: 07/02/2020 01:28 PM SERVICES Pathologist: Nadine Butler MD Specimen: Toe, Right, right great toe DIAGNOSIS (test code = l3iakFSdVCTol6ihWEXddYX 3220) uZzEwMzNcZnRuYmpcdWMxIH tccnRmMVxlcGljOTIwMlxhb uToRQWfcVYzK8WvrfezAGtr LM7eRO1efAtddVUglQYuJUV yJoFib6jbq345gBSpy3koFF LPbkxxeGu8uFljX10qg9E7R lfzK26yqPNtKJksaTCmlycm ohItKSWGF6GkDBWRU9zCBHi VBFkJZNvjOC5TGUIMHKaHGg zghKSuNM5yN0JUW5LTUvBvN N5LG4iUQH3IIVGGLP6bGO7A IUCSTiXkSVnHI1UKKHEbcuJ sBXQRCdSzY1yIVFSJAwYARh 6DWjELMZOPHQUAOL8YQ5VTQ 0lTXHBhciAtIFNPRlQgVElT J4PQXTJBEDJSKYZHVAZWWM9 hGG2HM8fXHEShKqwnCD0BHR RDZOVKB3TBTYGKK1VDJ7Jup LUjVD3aJJIHAWKSYLPFNCWH UlRJTEFHRSBBVCBUSEUgTUF VW7qNRLNJNzQVJUNGG2UBHR DmtWRsZI6cXhHGBGRZIhEqM m9PQK4VUBsMGqDWR6hcfYKd PMWudu05MJL2WtOzz8A3GDX 9AJDkXHRdp8cfLXGbyDTaHy EwMzNcZnRuYmpcdWMxXGRlZ wRsn6pdw193gKTmm8jmDVLv JkT6gLPxRTUeiSXxE477HXZ mINnqq6bzk8FmXZLwqUZoj8 Y0IFGAdygcbAm3tBikM03jz 7Y0MbagG8xuWZPyJCSlL9Iz EG6qCPHqFop6XCU9CKS3XJW rMSKxU0HsJT8sCTShhDRzBM l5t8hjoThvCDFaWDR2r4qsF UkdfgIvBH3ghq9oqSs1j0pp dbGfHSOpIJVnlWNUOJLdZ4W wfVwoAz9zdAs7rBfbIncyXX I4Sop1RX5lzl55zkh4iEgpB UKhvjxvYxN0JEtcWQIxjwpu DVr2CHbuUWSsbJF6OKGtwUI oZ3FkKGJoBI9rhqa1LQP5HQ ctNSCtNhT0LMDauQMmAEXic RzaTNruw519GVK8XiZsPE3u Y3Svt1L1hB9olLErMIAqlYQ eUiXmTQRlqe5ndPPjQBypp6 BlXWF6oyM7cNYtcCGcDJOnA pE5CFacNR8toy63QNGyCMX2 yj3zwHDjjThyvpHuvDAcSDh pM8VxPNJyr164BGSlP7FuSS Ebk5K8ckBcMpAkDRYncIB3b aX9LIDvEX7ksvhjk7iaPHik ERzsDPHarjR1waQ1EAHnvKR aU9HsuI1gJCFqUP6qdyhjk7 isICR4NOywMZYzFDX4IwVpN MIms7Zjwwl0MrZrk6UowIUh YKynR10nn832SEZljuZfK3f wbGFpblxwbGFpblxmMFxmcz A2NXXiVNxkgufeLENvBSfgF 0mzGoCkWOZbhWnbPMmqj5Bv XGYxXGZzMjJcdGFiXHRhYlx 2DEXhfFXdCXQeTdVzS9jbyb frDzJYTMGva5myY0dxcFBNy PZxY0FwBMgnldJaQLeoZXso SERmXPX6HS84MDH1IREyek3 9 CPT Code(s) (test code v2pmeOCjPIUrpDD7BtRcLBK = 3357) nh1sqm8DkgILmuGSyQXzxzE VurlDlrz49rAB0xF94DA3lQ KKpPrG2LPLfjyO6Xbf9CEIi XTBngLHcN805y7nvd5gilgE mtVJ4yXomTEWcUMEeTIwtPF ScPwCuDZczZPI6FWx7YzCvL HBhcn0= CLINICAL HISTORY (test k9mhkAFgWUFmkXX7VeCyVXN code = 3356) xk4llb9WxyWAibEHyGHjcxT DnyjRnve46nUS2hP14AO0rT CZhHiX6RTTcflH9Nha8JSRd XIYflXMpL782g9hcq0sengN fmPU8uThiHAUrQAPzTIlwCW VfDeWqR4WpJ1AkqrIoiNDbf Q== SPECIMEN SOURCE (test p5ykwTChYYNpvPT0UjMzDAJ code = 3377) fa3ewf0UimVBsxGRdGXsbaH KrqpJxpe10uCT2rD52AF1hK QQjUtJ2NHHnkdF7Kix9PEKi DQNxdJByY255o9rye4exawR nwVX1aAtdITVyAJNeIZfgSD ArVbAhZL2pGRGsdMqlxIsxP XJ9 GROSS DESCRIPTION s8paiDDyBZToiFWjKiNgZDQ (test code = 3366) bIYAeg7iuIOXipTHyQoAkVt NcZnRuYmpcdWMxXGRlZmYwe 2zzr564oVYag8phZJKkMrE1 dXZbAIGkuCArE328g7lns5o phdKvwYA9BYOtPZY0SLwngp UhpkM9MYzwuYHhDhM0AEvvi pHnQEhrviOzryQdVdo8KGZk E360LLX8lOkoy4kjIDZ0DVM iODQwZdPmMo1poOAtV835RD IuLZNWDHKwhCe7ZBRiuhVkf pRduQFOm446T234w4ihHSNg luJdqXxXeclin5rzL073ECS hcGVydzEyMjQwXHBhcGVyaD Q1RMGaIU7xxpsqPmMnNE6cr wcfRiEgGP0ypwe2OmOgYT9z cmdiNzIwXGhlYWRlcnkwXGZ tx4SwbgohAU2eR1Cgo7R4jF 9maXRcZGVmdGFiNzIwXGZvc q4bmVObUWqya7KlRSF5qrW3 sUBvaFXfMKIvYJ34Vapuc3N nBwadGFV0AROwpjOha3Sxu5 apViMrnnVrH6aeL6ViXKQaA ANeMMZdBgDzkrCph5Jby4Hj gAFojOl8d2gjOYQpFNEtuXe tr9qoXPC2EIQaQ8U2zTDmz6 dgZYhjCYRlsES3ylrvJTvqH JJmsnH9ujhcOOtmIRUvcGU3 mzikGTtqEATeWzH5neqsNGu bHGMbZWG7DZmtp902NJY7GG xzYmtwYWdlXHBnbmNvbnRcc GduZGVjXHBsYWluXHBsYWlu XGYwXGZzMjRccWxccGxhaW5 oMoFkSuVmVJblXB8aIYNpB3 lfkBYzNZFtSAQtQ8cfEqXfm E9chXyeHEequjHvLPLkAQGf U7GfndJlLSBzYCTvCNuxZzM hUPGup1l3dJD0wKEgwOM9zV CkpDboRjGuUW0wpLAzBJ9lL LqyOWuejeTzo3EeBM02gJHt ciBhbmQgInRvZSwgcmlnaHQ yIPvoNYRaUUavOFU5dPZ1wD Q5XXZuwW5bEK4aZTN0leawY eZ1WsIkW24mqY3jfCTcC4Mi IGFuZCAzIGNtIGluIGRpYW1 ldGVyLiAgVGhlcmUgaXMgYS Pfb72tWRd1BAW7rDCpsIGsX BL6oEfqi4YvSFPeUCJbnt08 MZwbw4knqQ1ebQlbPhTcAOp pIIkozSFjQTdke2WtKhBjLX EihFHitKU4euZfYNShyGVkX tqexKYjFfDqT64pE0EpA9Ox dl86ygN1nDSeelKrm2IakMT pZMDyTzEeaBEpgd9tPDVuOX Ncq2lkLP2yxqbiftXynjCvT SGphAZonw2uAMUxKWOouPKx gmKdW6BwZKSeLPFve89hBsL dHKobeiTknGKmZQ3yGAH8nr HkcbNeZX4arZ39FT4pCLWlz I1gEXtmU75ub8AjfIjrzhV2 hRXoPSVkiHYkAItjFPU9rkQ viT9ohL8cYSEqJLX4yAHkuw 7iZZXdBBY6ksLsibl9oY1uZ GJvbmUgaXMgcmVkIGFuZCBo MR1datRjZJvdPnczWD3nKNF 1oYGnGUSdfCa1JNurlAwuVO RxN9WxeHMtDUBbPNDaEsFdB sQqthXtAV70MQZcsyRoo1Ta hOuryrJgVCGfNWK0Vj9wzEO wZD5cwFXhIMJqfhLPPXI8pU 0sIEPsIIX4JFKfwvBQDZjtJ HjwCLIlvG0bfXoiKRYrr3Jm g2Dcg3nwlbHwEHXebL9rPZB mjEFhDEFoFUFyTB9wwKS7iX BkUJDhA5Jyd38bXIussZzkl G1aGALzhTozEjLid76sUNVc d0cnu4mirbgaWXWvJJppcNJ yH8Y3wL2cBQDwpoFTToepXK xvACP0cQC0zBY9RIJoVY1jU B7xPSRnkcWeWCZoASBoX7Na COCniArxo6wfBmHqWCVpbJX oDpaiJYOge56tuITtHCObey TRcSJyd5PvBLxzJFVoLXNRI QYwBAVEUVqAR1OFPDNfQUTs cn0= MICROSCOPIC f0oedGPiCKQwxHT2MdPrTHC DESCRIPTION (test code xj9wnu4SheGQveZBlCVavpD = 3371) AvjoNbiq99uLP9iQ83JF4tB PZcMwW0CNYvnmC5Ucb6JPQb BTFdkMTaE759o4yyb4exttS fuNX6qPqdRAQgRLDxXWgnHO OkToPgCZEZOy0EEANSWYNba n0= [facility] HospitalTISSUE [id number] 16:35:00Surgical Pathology Report Case: [id number] Authorizing Provider: Aleksandr Duong DPM Collected: 07/02/2020 01:10 PM Ordering Location: [facility] PERI[facility] Received: 07/02/2020 01:28 PM SERVICES Pathologist: Nadine Butler MD Specimen: Toe,Right, right great toe FOOT, RIGHT HALLUX, AMPUTATION:- GANGRENE INVOLVING SKIN AND SOFT TISSUE- BONE WITH INTER-TRABECULAR NECROSIS- SOFT TISSUE AT THE MARGIN INVOLVED BY INFLAMMATORY PROCESS- ARTICULAR CARTILAGE AT THE MARGIN, UNREMARKABLE- NEGATIVE FOR MALIGNANCY Signing Pathologist Direct Phone Line: [phone] signed by Nadine Butler MD on 07/30/2020 at 4:35 [id number]; [id number], rightA. Received fresh labeled with the patient's [...] and cuts easily with a scalpel blade. [employer] sections are submitted.Section code:A1: Ulcer to the closest skin margin (blue), perpendicular sections with underlying bone, following decalcificationA2: Disarticulated end of bone, en face, following decalcificationChelsea BRIANNA Medina PA ([facility])cmPERFORMEDCARDIAC CATH REPORT - [id number] 10:37:11Ordered by an unspecified provider.[facility]-Glucose [id number] 11:15:00 Test Item Value Reference Range Interpretation Comments POC-Glucose Meter (test 283 mg/dL 70-110 H : TE STED AT [facility] code = 1538) [address] [facility], 770 30: Creative Engagement Director/Techni heather ID = [id number] for LEIJA, SERKAL EM Lab Interpretation (test Abnormal code = 83466-1) [facility]-GLUCOSE [id number] 11:15:00 Test Item Value Reference Range Interpretation Comments POC-GLUCOSE METER 283 mg/dL 70-110 H : TESTED A T [facility] 6720 (BEAKER) (test code = SHRAVAN Raymond [facility], 1538) [address]: Creative Engagement Director/Techni heather ID = [id number] for LIN CERVANTES CBC with platelet count + automated [id number] 08:27:00 Test Item Value Reference Range Interpretation Comments WBC (test code = 6690-2) 15.3 See_Comment H [A utomated message] The system [employer] generated this result transmitted ref erence range: 3.5 - 10 .5 K/L. The refe rence range was not u sed to interpret this result as normal/abnor mal. RBC (test code = 789-8) 2.98 See_Comment L [Au tomated message] The system [employer] generated this result transmitted ref erence range: 4.63 - 6 .08 M/L. The refe rence range was not u sed to interpret this result as normal/abnor mal. MCHC (test code = 786-4) 31.1 See_Comment L [A utomated message] The system [employer] generated this result transmitted ref erence range: [...] See_Comment [Aut omated message] 777-3) The system [employer] generated this result transmitted ref erence range: 150 - 45 0 K/CU MM. The referen ce range was not u sed to interpret this result as normal/abnor mal. MPV (test code = 9.2 fL 9.4-12.4 L 80076-6) nRBC (test code = 413) 0 See_Comment [Aut omated message] The system [employer] generated this result transmitted ref erence range: 0 - 0 /1 00 WBC. The refere nce range was not u sed to interpret this result as normal/abnor mal. Lab Interpretation (test Abnormal code = 63928-6) [facility] [id number] 08:27:00 Test Item Value Reference Range Interpretation [...] = 3438) CACHORRO (test code = CACHORRO) Creative Engagement Director ID - Irena Chen comments: Slide comments: Lab Interpretation (test Abnormal code = 52111-1) [facility] W/PLT COUNT & AUTO [id number] 08:27:00 Test Item Value Reference Range Interpretation [...] CONCENTRATION Adequate (CELLAVISION)(BEAKER) (test code = 3438) Creative Engagement Director ID - Irena Chen comments: Slide comments:POCT-GLUCOSE METER 2020-07-05 08:06:00 Test Item Value Reference Range Interpretation Comments POC-GLUCOSE METER 149 mg/dL 70-110 H : TESTED A T [facility] 6720 (BEAKER) (test code = [place], 1538) [address]: Creative Engagement Director/Techni heather ID = [id number] for IB LIN DAVIS Basic Metabolic [id number] 04:49:00 Test Item Value Reference Range Interpretation Comments Sodium (test code = 138 meq/L 908-881 6210-2) Potassium (test code = 4.0 meq/L 3.5-5.1 2823-3) Chloride (test code = 107 meq/L 98-107 2075-0) CO2 (test code = 21 meq/L 22-29 L 8-9) BUN (test code = 18 mg/dL 7-21 3094-0) Creatinine (test code 1.38 mg/dL 0.57-1.25 H = 2160-0) Glucose (test code = 161 mg/dL 70-105 H 2345-7) Calcium (test code = 8.8 mg/dL 8.4-10.2 76735-3) EGFR (test code = 50 mL/min/1.73 [place] [address]-0) NOT ACCURATE CREATININE CLEARANCE IN PREDICTING GLOMERULAR FILTRATION RATE . ESTIMATED GFR I S NOT APPLICABLE FOR DIALYSIS PATIENTS. CACHORRO (test code = CACHORRO) Creative Engagement Director ID - [id number] [facility]eras Lab Interpretation Abnormal (test code = 55710-1) [facility] [id number] 04:49:00 Test Item Value Reference Range Interpretation [...] S NOT APPLICABLE FOR DIALYSIS PATIEN TS. Creative Engagement Director ID - PIAYA LPOCT-GLUCOSE [id number] 21:36:00 Test Item Value Reference Range Interpretation Comments POC-GLUCOSE METER 167 mg/dL 70-110 H : TESTED A T [facility] 67[facility] (BEAKER) (test code = SHRAVAN Mandi [facility], 1538) [address]: Creative Engagement Director/Techni heather ID = [id number] for Raghu barone (pca2)[place] POCT-GLUCOSE [id number] 17:51:00 Test Item Value Reference Range Interpretation Comments POC-GLUCOSE METER 156 mg/dL 70-110 H : Notified RN/MD: (BEAKER) (test code = TESTED AT [facility] 6720 1538) [facility], [address]: Creative Engagement Director/Techni heather ID = [id number] for Marj Watts (CELLAVISION MANUAL DIFF)2020-07-04 15:55:00 [...] CONCENTRATION Adequate (CELLAVISION)(BEAKER) (test code = 3438) Creative Engagement Director ID - Juana Astudillo comments: Slide comments:BASIC [...] S NOT APPLICABLE FOR DIALYSIS PATIEN TS. Creative Engagement Director ID - DBCBC W/PLT COUNT & AUTO [id number] 15:17:00 Test Item Value Reference Range Interpretation [...] WBC 0-0 (BEAKER) (test code = 413) [id number] 12:36:00 Test Item Value Reference Range Interpretation Comments PTT (test code = 102.6 See_Comment H [Automated message] 93924-7) The system [employer] generated this result transmitted ref erence range: 22.5 - 3 6.0 seconds. The reference range was not used to int erpret this result as normal/abnormal . Lab Interpretation (test Abnormal code = 62010-8) [facility] CenterAPTT[facility] 12:36:00 Test Item Value Reference Range Interpretation Comments PARTIAL THROMBOPLASTIN TIME 102.6 seconds 22.5-36.0 H (BEAKER) (test code = 760) POCT-GLUCOSE [id number] 12:25:00 Test Item Value Reference Range Interpretation Comments POC-GLUCOSE METER 212 mg/dL 70-110 H : TESTED A T [facility] 6720 (BEAKER) (test code = [facility], 1538) [address]: Creative Engagement Director/Techni heather ID = [id number] for Marj Watts POCT-GLUCOSE [id number] 07:39:00 Test Item Value Reference Range Interpretation Comments POC-GLUCOSE METER 162 mg/dL 70-110 H : TESTED A T [facility] 6720 (BEAKER) (test code = [facility] [employer] [facility], 1538) [address]: Creative Engagement Director/Techni heather ID = [id number] for EMANI DELGADO [id number] 05:06:00 Test Item Value Reference Range Interpretation Comments PARTIAL THROMBOPLASTIN TIME 64.8 seconds 22.5-36.0 H (BEAKER) (test code = 760) [id number] 23:50:00 Test Item Value Reference Range Interpretation Comments PARTIAL THROMBOPLASTIN TIME 59.1 seconds 22.5-36.0 H (BEAKER) (test code = 760) POCT-GLUCOSE [id number] 21:25:00 Test Item Value Reference Range Interpretation Comments POC-GLUCOSE METER 156 mg/dL 70-110 H : TESTED A T [facility] 6720 (BEAKER) (test code = [facility], 1538) [address]: Creative Engagement Director/Techni heather ID = [id number] for LEVON LEE POCT-GLUCOSE [id number] 17:25:00 Test Item Value Reference Range Interpretation Comments POC-GLUCOSE METER 162 mg/dL 70-110 H : Notified RN/MD: (ERIK) (test code = TESTED AT [facility] 6720 1538) [facility] [address]: Creative Engagement Director/Techni heather ID = [id number] for Marj Watts [id number] 15:41:00 Test Item Value Reference Range Interpretation Comments PARTIAL THROMBOPLASTIN TIME 46.0 seconds 22.5-36.0 H (SHIV) (test code = 760) [id number] 15:13:00 Test Item Value Reference Range Interpretation Comments PARTIAL THROMBOPLASTIN TIME > seconds 22.5-36.0 HH ([facility]) (test code = 760) POCT-GLUCOSE [id number] 12:24:00 Test Item Value Reference Range Interpretation Comments POC-GLUCOSE METER 166 mg/dL 70-110 H : TESTED A T [facility] (test code = AJITVT Mandi [facility], 1538) [address]: Creative Engagement Director/Techni heather ID = [id number] for LEVON LEE SARS-CoV2/RT-PCR (Asymptomatic ONLY)2020-07-03 08:16:00 Test Item Value Reference Range Interpretation Comments SARS-COV2/RT-PCR Negative Not Detected, (test code = Negative, See 68028-5) external report for linked test SARS-COV-2 [facility] PERFORMING LAB (test code = 53589-3) CACHORRO (test code = Negative results do [...] of the Act. Fact Sheet for Healthcare Providers:https://www.[employer]/Documents/Xper t%20Xpress%20SARS%20CoV- 2/Fact%20Sheets/3023802 %78PGTE-VGH-7%20HEALTHCA RE%20PROVIDERS%20FACT%20 SHEET.pdf Fact Sheet for Healthcare Patients:https://www.[employer]/Documents/Xpert %20Xpress%20SARS%20CoV-2 /Fact%20Sheets/3023801% 34XOSK-FDX-9%20PATIENT%2 0FACT%20SHEET.pdf Performing Laboratory:[address]-PCR ([facility])2020-07-03 08:16:00 Test Item Value Reference Range Interpretation Comments SARS-COV2/RT-PCR (test code Negative Not Detected, Negative, = 0657445) See external report for linked test SARS-COV-[address] [facility] (test code = 8338759) Negative results do not preclude SARS-CoV-2 infection [...] of the Act.Fact Sheet for Healthcare Pro viders:https://www.[employer]/Documents/Xpert%20Xpress%20SARS%20CoV-2/Fact%20Sh eets/302-3802%13CPKS-NMH-8%20HEALTHCARE%20PROVIDERS%20FACT%20SHEET.pdfFact Sheet for Healthcare Patients:https://www.[employer]/Documents/Xpert%20Xpress%20SARS%20CoV-2/Fact%20Sheets/302-3801%20SARS-COV -2%20PATIENT%20FACT%20SHEET.pdfPerforming Laboratory:[place] [address] [address] [place], [place] [address]SGLJ-CVOFCCK [id number] 08:12:00 Test Item Value Reference Range Interpretation Comments POC-GLUCOSE METER 152 mg/dL 70-110 H : TESTED A T [facility] [address] (BEAKER) (test code = SHRAVAN Raymond [facility], 1538) [address]: Creative Engagement Director/Techni heather ID = [id number] for LEVON LEE BASIC METABOLIC [id number] 05:19:00 Test Item Value Reference Range Interpretation [...] S NOT APPLICABLE FOR DIALYSIS PATIEN TS. Creative Engagement Director ID - TUSHAR [id number] 04:52:00 Test Item Value Reference Range Interpretation Comments PARTIAL THROMBOPLASTIN TIME 37.1 seconds 22.5-36.0 H (ERIK) (test code = 760) CBC (Hemogram only)2020-07-03 04:41:00 Test Item Value Reference Range Interpretation Comments WBC (test code = 6690-2) 14.4 See_Comment H [A utomated message] The system [employer] generated this result transmitted ref erence range: 3.5 - 10 .5 K/L. The refe rence range was not u sed to interpret this result as normal/abnor mal. RBC (test code = 789-8) 2.85 See_Comment L [Au tomated message] The system [employer] generated this result transmitted ref erence range: 4.63 - 6 .08 M/L. The refe rence range was not u sed to interpret this result as normal/abnor mal. MCHC (test code = 786-4) 31.6 See_Comment L [A utomated message] The system [employer] generated this result transmitted ref erence range: [...] See_Comment [Aut omated message] 777-3) The system [employer] generated this result transmitted ref erence range: 150 - 45 0 K/CU MM. The referen ce range was not u sed to interpret this result as normal/abnor mal. MPV (test code = 9.0 fL 9.4-12.4 L 76193-9) nRBC (test code = 413) 0 See_Comment [Aut omated message] The system [employer] generated this result transmitted ref erence range: 0 - 0 /1 00 WBC. The refere nce range was not u sed to interpret this result as normal/abnor mal. Lab Interpretation (test Abnormal code = 70982-8) [facility] (HEMOGRAM ONLY)2020-07-03 04:41:00 Test Item Value [...] 0-0 (BEAKER) (test code = 413) SARS-COV2/RT-PCR ([facility])2020-07-02 20:04:00 Test Item Value Reference Range Interpretation Comments SARS-COV2/RT-PCR (test Negative Not Detected, Negative, code = 4590985) See external report for linked test SARS-COV-[address] [facility] (test code = 7049779) Negative result for this test determines that [...] [place]acheco SARS-CoV-2 assay.Fact Sheet for Healthcare Providers:https://www.molecular.pacheco/libby/ GW_HLEP-WbH-4_COM_Spbt_Glepg_88-981977.pdfFact Sheet for Healthcare Patients:https://www.molecular.ab dario/libby/UG_SPXO-BuF-3_Xgleczh_Lamm_Pcdrj_EP_08-217582M9.pdfPerforming Laboratory:[facility] [place] [address] POCT-GLUCOSE [id number] 17:56:00 Test Item Value Reference Range Interpretation Comments POC-GLUCOSE METER 155 mg/dL 70-110 H : TESTED A T [facility] [address] (ERIK) (test code = [place], 1538) [address]: Creative Engagement Director/Techni heather ID = [id number] for Jazmin Hu POCT-GLUCOSE [id number] 17:55:00 Test Item Value Reference Range Interpretation Comments POC-GLUCOSE METER 166 mg/dL 70-110 H : TESTED A T [facility] [address] (BEAKER) (test code = [place], 1538) [address]: Creative Engagement Director/Techni heather ID = [id number] for Jazmin Hu CBC (HEMOGRAM ONLY)2020-07-02 17:45:00 [...] (BEAKER) (test code = 413) Vancomycin level, [id number] 16:47:00 Test Item Value Reference Range Interpretation Comments Vancomycin Rm (test 9.9 ug/mL code = 00466-4) CACHORRO (test code = Reference Range: No CACHORRO) NormalsOperator ID - BS [facility] CenterVancomycin level, [id number] 16:47:00 Test Item Value Reference Range Interpretation Comments Vancomycin Rm (test 9.9 ug/mL code = 95217-6) CACHORRO (test code = Reference Range: No CACHORRO) NormalsOperator ID - BS [facility] HospitalVANCOMYCIN LEVEL, [id number] 16:47:00 Test Item Value Reference Range Interpretation Comments VANCOMYCIN RANDOM (BEAKER) (test 9.9 ug/mL code = 523) Reference Range: No NormalsOperator ID - BSPOCT-GLUCOSE [id number] 14:40:00 Test Item Value Reference Range Interpretation Comments POC-GLUCOSE METER 167 mg/dL 70-110 H : TESTED A T [facility] 6720 (BEAKER) (test code = [place], 1538) [address]: Creative Engagement Director/Techni heather ID = [id number] for ANGIE WHEELER ECG 12 [id number] 13:53:08Interface, External Ris In - 07/02/2020 1:53 PM CDTVentricular Rate 70 BPMAtrial Rate 76 BPMQRS Duration 114 msQ-T Interval 416 msQTC Calculation(Bazett) 449 msR [place] 2 degreesT [place] -[address] and T wave abnormalityAbnormal ECGWhen compared with ECG of 30-JAN-2017 01:13,ST less depressed in Anterior leadsT wave inversion no longer evident in Anterolateral leadsConfirmed by MD Morocho Roberto ([id number]) on 07/02/2020 1:53:05 [facility] PeninsulaCB W/PLT COUNT & AUTO [id number] 09:24:00 Test Item Value Reference Range Interpretation [...] CONCENTRATION Adequate (CELLAVISION)(BEAKER) (test code = 3438) Creative Engagement Director ID - Niurka Zaina comments: Slide comments:POCT-GLUCOSE METER 2020-07-02 08:29:00 Test Item Value Reference Range Interpretation Comments POC-GLUCOSE METER 162 mg/dL 70-110 H : TESTED A T [facility] [address] (BEAKER) (test code = [place], 1538) [address]: Creative Engagement Director/Techni heather ID = [id number] for Ra chapa Jazmin [id number] 05:08:00 Test Item Value Reference Range Interpretation Comments PARTIAL THROMBOPLASTIN TIME 65.4 seconds 22.5-36.0 H (BEAKER) (test code = 760) [id number] 03:17:00 Test Item Value Reference Range Interpretation Comments PARTIAL THROMBOPLASTIN TIME 128.2 seconds 22.5-36.0 H (BEAKER) (test code = 760) BASIC METABOLIC [id number] 03:15:00 Test Item Value Reference Range Interpretation [...] S NOT APPLICABLE FOR DIALYSIS PATIEN TS. Creative Engagement Director ID - SARBJIT MPOCT-GLUCOSE [id number] 00:03:00 Test Item Value Reference Range Interpretation Comments POC-GLUCOSE METER 183 mg/dL 70-110 H : TESTED A T [facility] 6720 (BEAKER) (test code = [facility], 1538) [address]: Creative Engagement Director/Techni heather ID = [id number] for Herb Giles [id number] 18:14:00 Test Item Value Reference Range Interpretation Comments PARTIAL THROMBOPLASTIN TIME 71.0 seconds 22.5-36.0 H (BEAKER) (test code = 760) POCT-GLUCOSE [id number] 17:03:00 Test Item Value Reference Range Interpretation Comments POC-GLUCOSE METER 259 mg/dL 70-110 H : TESTED A T [facility] 6720 (BEAKER) (test code = [facility], 1538) [address]: Creative Engagement Director/Techni heather ID = [id number] for MALIHA HANNAH [id number] 15:30:00 Test Item Value Reference Range Interpretation Comments PARTIAL THROMBOPLASTIN TIME > seconds 22.5-36.0 HH (BEAKER) (test code = 760) Blood Culture - Routine (Left Venipuncture)2020-07-01 14:01:00 Test Item Value Reference Range Interpretation Comments Result (test code = No growth in 5 days 6463-4) [facility] Center[facility] Culture - Routine (Left Venipuncture)2020-07-01 14:01:00 Test Item Value Reference Range Interpretation Comments Result (test code = No growth in 5 days 6463-4) [facility] CenterBLOOD [id number] 14:01:00 Test Item Value Reference Range Interpretation Comments CULTURE (BEAKER) (test No growth in 5 days code = 1095) BLOOD [id number] 14:01:00 Test Item Value Reference Range Interpretation Comments CULTURE (BEAKER) (test No growth in 5 days code = 1095) BLOOD [id number] 14:01:00 Test Item Value Reference Range Interpretation Comments CULTURE (BEAKER) (test No growth in 5 days code = 1095) POCT-GLUCOSE [id number] 12:17:00 Test Item Value Reference Range Interpretation Comments POC-GLUCOSE METER 225 mg/dL 70-110 H : TESTED A T [facility] 6720 (BEAKER) (test code = [place], 1538) [address]: Creative Engagement Director/Techni heather ID = [id number] for AN MALIHA CARBALLO Hepatic function [id number] 10:07:00 Test Item Value Reference Range Interpretation Comments Protein, Total (test 7.0 See_Comment [Autom ated code = 2885-2) message] The system which generated this result transmit vy reference range : 6.0 - 8.3 gm/dL . The reference range was not u sed to interpret th is result as normal/abnormal . Albumin (test code = 3.2 g/dL 3.5-5 L 79141-6) Total Bilirubin (test 0.5 mg/dL 0.2-1.2 code = 1975-2) Bilirubin, Direct 0.3 mg/dL 0.1-0.5 (test code = 1968-7) Alkaline Phosphatase 110 U/L 40-150 (test code = 6768-6) AST (test code = 15 U/L 5-34 1920-8) ALT (test code = 10 U/L 6-55 1742-6) CACHORRO (test code = CACHORRO) Creative Engagement Director ID - NIURKA Isidro Lab Interpretation Abnormal (test code = 89837-7) [facility] CenterHEPATIC FUNCTION [id number] 10:07:00 Test Item Value Reference Range Interpretation [...] (test code = 10 U/L 6-55 347) Creative Engagement Director ID - [address] FCBC W/PLT COUNT & AUTO [id number] 09:53:00 Test Item Value Reference Range Interpretation [...] Adequate (CELLAVISION)(BEAKER) (test code = 3438) POCT-GLUCOSE [id number] 07:36:00 Test Item Value Reference Range Interpretation Comments POC-GLUCOSE METER 167 mg/dL 70-110 H : Notified RN/MD: (BEAKER) (test code = TESTED AT [facility] 67[address] 1538) [facility], [address]: Creative Engagement Director/Techni heather ID = [id number] for AN KAIT MALIHA BASIC METABOLIC [id number] 06:45:00 Test Item Value Reference Range Interpretation [...] S NOT APPLICABLE FOR DIALYSIS PATIEN TS. Creative Engagement Director ID - NIURKA FVANCOMYCIN LEVEL, [id number] 06:33:00 Test Item Value Reference Range Interpretation Comments VANCOMYCIN RANDOM (BEAKER) (test 18.8 ug/mL code = 523) Reference Range: No NormalsOperator ID - SARBJIT [id number] 06:18:00 Test Item Value Reference Range Interpretation Comments PARTIAL THROMBOPLASTIN TIME 39.9 seconds 22.5-36.0 H (BEAKER) (test code = 760) POCT-GLUCOSE [id number] 00:26:00 Test Item Value Reference Range Interpretation Comments POC-GLUCOSE METER 170 mg/dL 70-110 H : TESTED A T [facility] 6720 (BEAKER) (test code = SHRAVAN [place] [facility], 1538) [address]: Creative Engagement Director/Techni heather ID = [id number] for DYLAN OLSON [id number] 23:56:00 Test Item Value Reference Range Interpretation Comments PARTIAL THROMBOPLASTIN TIME 47.5 seconds 22.5-36.0 H (BEAKER) (test code = 760) [id number] 16:30:00 Test Item Value Reference Range Interpretation Comments PARTIAL THROMBOPLASTIN TIME 51.2 seconds 22.5-36.0 H (BEAKER) (test code = 760) [id number] 14:32:00 Test Item Value Reference Range Interpretation Comments PARTIAL THROMBOPLASTIN TIME 187.8 seconds 22.5-36.0 HH (BEAKER) (test code = 760) [id number] 13:55:00 Test Item Value Reference Range Interpretation Comments PARTIAL THROMBOPLASTIN TIME > seconds 22.5-36.0 HH (BEAKER) (test code = 760) POCT-GLUCOSE [id number] 12:13:00 Test Item Value Reference Range Interpretation Comments POC-GLUCOSE METER 207 mg/dL 70-110 H : TESTED A T [facility] 6720 (BEAKER) (test code = [place], 1538) [address]: Creative Engagement Director/Techni heather ID = [id number] for MENDESLADARIUS BRADFORD CBC W/PLT COUNT & AUTO [id number] 09:36:00 Test Item Value Reference Range Interpretation [...] CONCENTRATION Decreased (CELLAVISION)(BEAKER) (test code = 3438) Creative Engagement Director ID - Magi Esposito comments: Slide comments:POCT-GLUCOSE METER 2020-06-30 08:19:00 Test Item Value Reference Range Interpretation Comments POC-GLUCOSE METER 162 mg/dL 70-110 H : TESTED A T [facility] [address] (BEAKER) (test code = [place], 1538) [address]: Creative Engagement Director/Techni heather ID = [id number] for EMANI DELGADO [id number] 07:46:00 Test Item Value Reference Range Interpretation Comments PARTIAL THROMBOPLASTIN TIME 76.8 seconds 22.5-36.0 H (BEAKER) (test code = 760) BASIC METABOLIC [id number] 07:03:00 Test Item Value Reference Range Interpretation [...] S NOT APPLICABLE FOR DIALYSIS PATIEN TS. Creative Engagement Director ID - SARBJIT MVANCOMYCIN LEVEL, [id number] 06:09:00 Test Item Value Reference Range Interpretation Comments VANCOMYCIN RANDOM (BEAKER) (test 25.1 ug/mL code = 523) Reference Range: No NormalsOperator ID - SARBJIT [id number] 00:42:00 Test Item Value Reference Range Interpretation Comments PARTIAL THROMBOPLASTIN TIME 68.8 seconds 22.5-36.0 H (BEAKER) (test code = 760) [id number] 22:14:00 Test Item Value Reference Range Interpretation Comments PARTIAL THROMBOPLASTIN TIME 124.8 seconds 22.5-36.0 H (BEAKER) (test code = 760) POCT-GLUCOSE [id number] 21:06:00 Test Item Value Reference Range Interpretation Comments POC-GLUCOSE METER 183 mg/dL 70-110 H : TESTED A T [facility] 6720 (BEAKER) (test code = [facility], 1538) [address]: Creative Engagement Director/Techni heather ID = [id number] for Loredo Penelope chang POCT-GLUCOSE [id number] 17:21:00 Test Item Value Reference Range Interpretation Comments POC-GLUCOSE METER 190 mg/dL 70-110 H : TESTED A T [facility] 6720 (BEAKER) (test code = [facility], 1538) [address]: Creative Engagement Director/Techni heather ID = [id number] for CA EMANI ALMENDAREZ [id number] 14:11:00 Test Item Value Reference Range Interpretation [...] 0-0 (BEAKER) (test code = 413) POCT-GLUCOSE [id number] 12:21:00 Test Item Value Reference Range Interpretation Comments POC-GLUCOSE METER 185 mg/dL 70-110 H : [facility] (BEAKER) (test code = [place], 1538) [address]: Creative Engagement Director/Techni heather ID = [id number] for CA STROEMANI CBC W/PLT COUNT & AUTO [id number] 10:14:00 Test Item Value Reference Range Interpretation [...] CONCENTRATION Adequate (CELLAVISION)(BEAKER) (test code = 3438) Creative Engagement Director ID - Raven Ledesma comments: Slide comments:POCT-GLUCOSE METER 2020-06-29 08:10:00 Test Item Value Reference Range Interpretation Comments POC-GLUCOSE METER 148 mg/dL 70-110 H : TESTED A T [facility] [address] (BEAKER) (test code = [place], 1538) [address]: Creative Engagement Director/Techni heather ID = [id number] for CA STRO, EMANI [id number] 07:22:00 Test Item Value Reference Range Interpretation Comments Magnesium (test code = 1.6 mg/dL 1.6-2.6 59138-7) CACHORRO (test code = CACHORRO) Creative Engagement Director ID Ventura Molina Lab Interpretation (test Normal code = 96263-8) [facility] [id number] 07:22:00 Test Item Value Reference Range Interpretation Comments Magnesium (test code = 1.6 mg/dL 1.6-2.6 94011-0) CACHORRO (test code = CACHORRO) Creative Engagement Director ID - SARBJIT Molina Lab Interpretation (test Normal code = 38324-3) [facility] CenterBASIC METABOLIC [id number] 07:22:00 Test Item Value Reference Range Interpretation [...] S NOT APPLICABLE FOR DIALYSIS PATIEN TS. Creative Engagement Director ID - SARBJIT [id number] 07:22:00 Test Item Value Reference Range Interpretation Comments MAGNESIUM (BEAKER) (test code = 1.6 mg/dL 1.6-2.6 627) Creative Engagement Director ID - SARBJIT [id number] 07:08:00 Test Item Value Reference Range Interpretation Comments PARTIAL THROMBOPLASTIN TIME 71.2 seconds 22.5-36.0 H (BEAKER) (test code = 760) [id number] 00:38:00 Test Item Value Reference Range Interpretation Comments PARTIAL THROMBOPLASTIN TIME 36.4 seconds 22.5-36.0 H (BEAKER) (test code = 760) [id number] 22:00:00 Test Item Value Reference Range Interpretation Comments PARTIAL THROMBOPLASTIN TIME 122.0 seconds 22.5-36.0 H (BEAKER) (test code = 760) POCT-GLUCOSE [id number] 21:36:00 Test Item Value Reference Range Interpretation Comments POC-GLUCOSE METER 153 mg/dL 70-110 H : TESTED A T [facility] 67[address] (ERIK) (test code = SHRAVAN [place] [facility], 1538) [address]: Creative Engagement Director/Techni heather ID = [id number] for PIPPA GUERIN Vancomycin level, [id number] 21:03:00 Test Item Value Reference Range Interpretation Comments Vancomycin Tr (test code = 26.1 ug/mL 10-20 H 4092-3) CACHORRO (test code = CACHORRO) Creative Engagement Director ID - DB Lab Interpretation (test Abnormal code = 56851-7) [facility] CenterVancomycin level, [id number] 21:03:00 Test Item Value Reference Range Interpretation Comments Vancomycin Tr (test code = 26.1 ug/mL 10.0-20.0 H 4092-3) CACHORRO (test code = CACHORRO) Creative Engagement Director ID - DB Lab Interpretation (test Abnormal code = 59180-2) [facility] CenterVANCOMYCIN LEVEL, [id number] 21:03:00 Test Item Value Reference Range Interpretation Comments VANCOMYCIN TROUGH (BEAKER) (test 26.1 ug/mL 10.0-20.0 H code = 522) Creative Engagement Director ID - DBPOCT-GLUCOSE [id number] 17:48:00 Test Item Value Reference Range Interpretation Comments POC-GLUCOSE METER 129 mg/dL 70-110 H : Notified RN/MD: (ERIK) (test code = TESTED AT [facility] 6720 1538) [facility], [address]: Creative Engagement Director/Techni heather ID = [id number] for MALIHA HANNAH [id number] 14:09:00 Test Item Value Reference Range Interpretation Comments PARTIAL THROMBOPLASTIN TIME 41.5 seconds 22.5-36.0 H (BEAKER) (test code = 760) POCT-GLUCOSE [id number] 11:54:00 Test Item Value Reference Range Interpretation Comments POC-GLUCOSE METER 130 mg/dL 70-110 H : Notified RN/: (ERIK) (test code = TESTED AT [place] [address] 1538) [facility], [address]: Creative Engagement Director/Techni heather ID = [id number] for AN MALIHA CARBALLO POCT-GLUCOSE [id number] 07:53:00 Test Item Value Reference Range Interpretation Comments POC-GLUCOSE METER 152 mg/dL 70-110 H : Notified RN/: (ERIK) (test code = TESTED AT [place] [address] 1538) [facility], [address]: Creative Engagement Director/Techni heather ID = [id number] for AN MALIHA CARBALLO CBC W/PLT COUNT & AUTO [id number] 07:41:00 Test Item Value Reference Range Interpretation [...] CONCENTRATION Adequate (CELLAVISION)(BEAKER) (test code = 3438) Creative Engagement Director ID - Magi Esposito comments: Slide comments:BASIC [...] H (BEAKER) (test code = 354) CREATININE ([facility]) 1.60 mg/dL 0.57-1.25 H (test code = 358) GLUCOSE RANDOM 156 mg/dL 70-105 H ([facility]) (test code = 652) CALCIUM ([facility]) 8.6 mg/dL 8.4-10.2 (test code = 697) EGFR ([facility]) (test 42 mL/min/1.73 ESTIMA VY GFR IS code = 1092) sq m NOT ACCURATE CREATININE CLEARANCE IN PREDICTING GLOMERULAR FILTRATION RATE . ESTIMATED GFR I S NOT APPLICABLE FOR DIALYSIS PATIEN TS. Creative Engagement Director ID - [id number] 05:08:00 Test Item Value Reference Range Interpretation Comments PARTIAL THROMBOPLASTIN TIME 38.2 seconds 22.5-36.0 H ([facility]) (test code = 760) POCT-GLUCOSE [id number] 23:23:00 Test Item Value Reference Range Interpretation Comments POC-GLUCOSE METER 191 mg/dL 70-110 H : TESTED A T [facility] 67 ([facility]) (test code = [facility], 153) [address]: Creative Engagement Director/Techni heather ID = [id number] for JONATAN BENITEZ RA [id number] 21:47:00 Test Item Value Reference Range Interpretation Comments PARTIAL THROMBOPLASTIN TIME 44.5 seconds 22.5-36.0 H ([facility]) (test code = 760) [id number] 18:57:00 Test Item Value Reference Range Interpretation Comments PARTIAL THROMBOPLASTIN TIME 129.6 seconds 22.5-36.0 H ([facility]) (test code = 760) POCT-GLUCOSE [id number] 18:19:00 Test Item Value Reference Range Interpretation Comments POC-GLUCOSE METER 173 mg/dL 70-110 H : Notified RN/MD: ([facility]) (test code = TESTED AT [place] [id number] 4578) [facility], [address]: Creative Engagement Director/Techni heather ID = [id number] for MALIHA HANNAH Arterial doppler legs [id number] 13:46:31Ejection FractionSLEH ECHO HEARTLAB MKCKESSON CPACSRight Impression1. The common [...] + + + + + + !Prox SUPERVISOR DENTURE DEPARTMENT ! !42.2 ! ! ! !11.8 ! ! ! + + + + + + + + + + !Mid SUPERVISOR DENTURE DEPARTMENT ! !77.8 ! ! ! + + + + + + !Dist SUPERVISOR DENTURE DEPARTMENT ! !44.8 ! ! ! +-------- + [...] Arterial Duplex Demographics Patient Name LEVI COLEY KRYSTA Date of Study 06/26/2020 Age 75 Visit Number [id number] Gender Male Accession Number [id number] Date of 1945 Referring Suri Spencer Room Number 2419 Physician MD Fela Resource Conservationist Rajinder Moreno Interpreting Physician STEFANIE Foster ProcedureType [...] + + + + + + !Prox SUPERVISOR DENTURE DEPARTMENT ! !42.2 ! ! ! !11.8 ! ! ! + + +------- + + + + + + + !Mid SUPERVISOR DENTURE DEPARTMENT ! !77.8 ! ! ! + + + + + + !Dist SUPERVISOR DENTURE DEPARTMENT ! !44.8 ! ! ! + + + + + + !Prox KYLEIGH ! !41 ! ! ! + + + + + + !Mid KYLEIGH ! !16 ! ! ! + + + + + + !Dist Peroneal ! !20.2 ! ! ! + + + -------+ + +[facility] POCT-GLUCOSE [id number] 12:23:00 Test Item Value Reference Range Interpretation Comments POC-GLUCOSE METER 158 mg/dL 70-110 H : TESTED Javi Arizmendi [facility] 6720 (BEAKER) (test code = [place], 1538) [address]: Creative Engagement Director/Techni heather ID = [id number] for MALIHA HANNAH [id number] 12:15:00 Test Item Value Reference Range Interpretation Comments PARTIAL THROMBOPLASTIN TIME 49.5 seconds 22.5-36.0 H (BEAKER) (test code = 760) CBC W/PLT COUNT & AUTO [id number] 09:10:00 Test Item Value Reference Range Interpretation [...] CONCENTRATION Adequate (CELLAVISION)(BEAKER) (test code = 3438) Creative Engagement Director ID - Raven BurkhalterUser comments: Slide comments:POCT-GLUCOSE METER 2020-06-27 08:03:00 Test Item Value Reference Range Interpretation Comments POC-GLUCOSE METER 150 mg/dL 70-110 H : TESTED A T [facility] 6720 (BEAKER) (test code = [place], 1538) [address]: Creative Engagement Director/Techni heather ID = [id number] for AN MALIHA CARBALLO BASIC METABOLIC [id number] 06:39:00 Test Item Value Reference Range Interpretation [...] S NOT APPLICABLE FOR DIALYSIS PATIEN TS. Creative Engagement Director ID - PIAYA [id number] 06:02:00 Test Item Value Reference Range Interpretation Comments PARTIAL THROMBOPLASTIN TIME 77.3 seconds 22.5-36.0 H (BEAKER) (test code = 760) [id number] 23:03:00 Test Item Value Reference Range Interpretation Comments PARTIAL THROMBOPLASTIN TIME 54.9 seconds 22.5-36.0 H (BEAKER) (test code = 760) POCT-GLUCOSE [id number] 17:54:00 Test Item Value Reference Range Interpretation Comments POC-GLUCOSE METER 139 mg/dL 70-110 H : TESTED A T [facility] 6720 (BEAKER) (test code = [place], 1538) [address]: Creative Engagement Director/Techni heather ID = [id number] for AN MALIHA CARBALLO [id number] 15:39:00 Test Item Value Reference Range Interpretation [...] 0-0 (BEAKER) (test code = 413) POCT-GLUCOSE [id number] 12:48:00 Test Item Value Reference Range Interpretation Comments POC-GLUCOSE METER 100 mg/dL 70-110 : TESTED A T [facility] 6720 (BEAKER) (test code = [place], 1538) [address]: Creative Engagement Director/Techni heather ID = [id number] for MALIHA HANNAH Venous doppler leg, [id number] 08:15:01Ejection FractionSLE ECHO HEARTLAB MKCKESSON CPACSRight Impression1. There is [...] of Study 06/25/2020 Age 75 Visit Number [id number] Gender Male Accession Number [id number] Date of 1945 Referring Suri Spencer Room Number ED21 Physician MD Fela Resource Conservationist Rajinder Moreno Interpreting Physician STEFANIE Foster ProcedureType of Study: Veins: Lower Extremities DVT Study, VENOUS DOPPLER LEG, RIGHT. Indications for Study:Leg pain and Leg swelling.Patient Status:STAT.Study Location:[facility].Technical Quality:Technically Difficult. - Results were reported [...] in cm/s ; Diameters are measured in [facility] CenterVenous doppler leg, [id number] 08:15:01Ejection FractionSLEH ECHO HEARTLAB MKCKESSON [facility]PAFremont [facility] HospitalHemoglobin [id number] 08:11:00 Test Item Value Reference Range Interpretation Comments Hemoglobin A1C (test code = 4548-4) 7.2 % 4.3-6.1 H Lab Interpretation (test code = Abnormal 74687-7) [facility] CenterHemoglobin [id number] 08:11:00 Test Item Value Reference Range Interpretation Comments Hemoglobin A1C (test code = 4548-4) 7.2 % 4.3-6.1 H Lab Interpretation (test code = Abnormal 85777-9) [facility] CenterHEMOGLOBIN [id number] 08:11:00 Test Item Value Reference Range Interpretation Comments HEMOGLOBIN A1C (BEAKER) (test code = 7.2 % 4.3-6.1 H 368) CBC W/PLT COUNT & AUTO [id number] 07:57:00 Test Item Value Reference Range Interpretation [...] CONCENTRATION Adequate (CELLAVISION)(BEAKER) (test code = 3438) Creative Engagement Director ID - Raven Baltazar comments: Slide comments:SARS-COV2/RT-PCR ([facility])2020-06-26 05:27:00 Test Item Value Reference Range Interpretation Comments SARS-COV2/RT-PCR (test Negative Not Detected, Negative, code = 0886932) See external report for linked test SARS-COV-[address] [facility] (test code = 3266326) Negative result for this test determines that [...] of the Act.Testing was performed using the Q Chip SARS-CoV-2 assay.Fact Sheet for Healthcare Providers:https://www.[employer].Prezma/libby/ JT_BBYV-PpB-1_FPM_Hyan_Rfexm_91-426806.pdfFact Sheet for Healthcare Patients:https://www.[employer].ab dario/libby/[id number] Laboratory:[facility] [place] [address] Vitamin B12 and [id number] 05:14:00 Test Item Value Reference Range Interpretation Comments Vitamin B12 (test 832 pg/mL 213-816 H code = 2132-9) Folate (test code = 17.50 ng/mL See_Comment [Automa vy 2284-8) message] The system which generated this result transmit vy reference range : >=7.00. The reference range was not used to interpret this result as normal/abnormal . CACHORRO (test code = CACHORRO) Creative Engagement Director ID - SARBJIT Molina Lab Interpretation Abnormal (test code = 00922-2) [facility]IT[facility] B12 AND [id number] 05:14:00 Test Item Value Reference Range Interpretation Comments VITAMIN B12 832 pg/mL 213-816 H (BEAKER) (test code = 774) FOLATE (BEAKER) 17.50 ng/mL See_Comment [Automated message] (test code = 362) The system which generated this result transmitted ref erence range: >=7.00. The reference range was not used to interpr et this result as normal/abnormal . Creative Engagement Director ID - SARBJIT MC-Reactive [id number] 04:29:00 Test Item Value Reference Range Interpretation Comments CRP (test code = 676) 5.28 mg/dL 0-0.5 H CACHORRO (test code = CACHORRO) Creative Engagement Director ID - SARBJIT M Lab Interpretation (test Abnormal code = 94050-2) [facility] CenterC-REACTIVE [id number] 04:29:00 Test Item Value Reference Range Interpretation Comments C-REACTIVE PROTEIN (BEAKER) (test 5.28 mg/dL 0.00-0.50 H code = 676) Creative Engagement Director ID - SARBJIT MBASIC METABOLIC [id number] 04:29:00 Test Item Value Reference Range Interpretation [...] S NOT APPLICABLE FOR DIALYSIS PATIEN TS. Creative Engagement Director ID - SARBJIT MRAD, FOOT, MIN 3 VIEWS, [id number] 23:41:00Reason for exam:->LEG PAINReason for exam:->LEG SWELLING [facility] CENTERName: LEVI COLEY KRYSTA : 1945 [...] CONCENTRATION Adequate (CELLAVISION)(BEAKER) (test code = 3438) Creative Engagement Director ID - StephanieUser comments: Slide comments:Lactic acid, venous 2020-06-25 19:36:00 Test Item Value Reference Range Interpretation Comments Lactate, Venous (test code = 0.52 mmol/L 0.5-2.2 2872) CACHORRO (test code = CACHORRO) Creative Engagement Director ID - BS Lab Interpretation (test Normal code = 43589-1) [facility] CenterLactic acid, [id number] 19:36:00 Test Item Value Reference Range Interpretation Comments Lactate, Venous (test code = 0.52 mmol/L 0.50-2.20 2872) CACHORRO (test code = CACHORRO) Creative Engagement Director ID - BS Lab Interpretation (test Normal code = 71890-1) [facility] CenterBASIC METABOLIC [id number] 19:36:00 Test Item Value Reference Range Interpretation [...] S NOT APPLICABLE FOR DIALYSIS PATIEN TS. Creative Engagement Director ID - BSC-REACTIVE [id number] 19:36:00 Test Item Value Reference Range Interpretation Comments C-REACTIVE PROTEIN (BEAKER) (test 4.79 mg/dL 0.00-0.50 H code = 676) Creative Engagement Director ID - BSLACTIC ACID, [id number] 19:36:00 Test Item Value Reference Range Interpretation Comments LACTATE BLOOD VENOUS (2) (BEAKER) 0.52 mmol/L 0.50-2.20 (test code = 2872) Creative Engagement Director ID - BSPT/[id number] 19:32:00 Test Item Value Reference Interpretation Comments Range Protime (test code = 16.8 See_Comment H [Autom ated 5902-2) message] The system which generated this result transmitted reference range : 11.9 - 14.2 seconds. The reference range was not used to interpret this result as normal/abnormal . INR (test code = 1.40 See_Comment [Automated 9341-6) message] The system which generated this result transmitted reference range : <=5.90. The reference range was not used to interpret this result as normal/abnormal . PTT (test code = 39.7 See_Comment H [Automated 70707-1) message] The system which generated this result [...] valves. Lab Interpretation Abnormal (test code = 24874-5) [facility] CenterPT/[id number] 19:32:00 Test Item Value Reference Interpretation Comments [...] (test code = 39.7 See_Comment H [Automated 92289-7) message] The system which generated this result [...] valves. Lab Interpretation Abnormal (test code = 98473-2) [facility] CenterPT/[id number] 19:32:00 Test Item Value Reference Range Interpretation [...] mechanical heart valves.CBC W/PLT COUNT & AUTO [id number] 19:25:00 Test Item Value Reference Range Interpretation [...] 0-0 (BEAKER) (test code = 413) POCT-GLUCOSE [id number] 13:28:00 Test Item Value Reference Range Interpretation Comments POC-GLUCOSE METER 270 mg/dL 70-110 H TESTED AT [place] [address] ([facility]) (test code = [place] 1538) [address] POCT-GLUCOSE [id number] 08:58:00 Test Item Value Reference Range Interpretation Comments POC-GLUCOSE METER 147 mg/dL 70-110 H TESTED AT [place] [address] ([facility]) (test code = [place] 1538) [address] CBC W/PLT COUNT & AUTO [id number] 08:53:00 Test Item Value Reference Range Interpretation [...] 0-1 PERCENT (BEAKER) (test code = 2801) [id number] 08:05:00 Test Item Value Reference Range Interpretation Comments MAGNESIUM (BEAKER) (test code = 1.5 mg/dL 1.6-2.6 L 627) BASIC METABOLIC [id number] 08:05:00 Test Item Value Reference Range Interpretation [...] NOT APPLICABLE FOR DIALYSIS PATIEN TS. POCT-GLUCOSE [id number] 21:57:00 Test Item Value Reference Range Interpretation Comments POC-GLUCOSE METER 219 mg/dL 70-110 H TEST[facility] AT [place] [address] [facility] (test code = [place] 1538) [address] POCT-GLUCOSE [id number] 17:24:00 Test Item Value Reference Range Interpretation Comments POC-GLUCOSE METER 247 mg/dL 70-110 H TESTED AT [place] [id number] ([facility]) (test code = [place] 1538) [address] CBC W/PLT COUNT & AUTO [id number] 13:56:00 Test Item Value Reference Range Interpretation [...] (BEAKER) (test code Normal = 762) POCT-GLUCOSE [id number] 13:22:00 Test Item Value Reference Range Interpretation Comments POC-GLUCOSE METER 226 mg/dL 70-[address] [facility] 67 (BEAKER) (test code = [place] 1538) [address] POCT-GLUCOSE [id number] 07:59:00 Test Item Value Reference Range Interpretation Comments POC-GLUCOSE METER 216 mg/dL 70-110 H TESTED AT [place] [address] (BEAKER) (test code = [place] 1538) [address] [id number] 05:18:00 Test Item Value Reference Range Interpretation Comments MAGNESIUM (BEAKER) (test code = 1.7 mg/dL 1.6-2.6 627) BASIC METABOLIC [id number] 05:18:00 Test Item Value Reference Range Interpretation [...] mg/dL 8.4-10.2 (test code = 697) EGFR ([facility]) (test 46 mL/min/1.73 ESTIMA VY GFR IS code = 1092) sq m NOT ACCURATE CREATININE CLEARANCE IN PREDICTING GLOMERULAR FILTRATION RATE . ESTIMATED GFR I S NOT APPLICABLE FOR DIALYSIS PATIEN TS. POCT-GLUCOSE [id number] 20:58:00 Test Item Value Reference Range Interpretation Comments POC-GLUCOSE METER 260 mg/dL 70-110 H TESTED AT [place] [address] ([facility]) (test code = [facility] 1538) [address] POCT-GLUCOSE [id number] 17:32:00 Test Item Value Reference Range Interpretation Comments POC-GLUCOSE METER 237 mg/dL 70-110 H TESTED AT [place] [address] ([facility]) (test code = [facility] 1538) [address] POCT-GLUCOSE [id number] 16:21:00 Test Item Value Reference Range Interpretation Comments POC-GLUCOSE METER 223 mg/dL 70-110 H TESTED AT [place] [address] ([facility]) (test code = [facility] 1538) [address] CBC W/PLT COUNT & AUTO [id number] 14:22:00 Test Item Value Reference Range Interpretation [...] CORPUSCULAR HEMOGLOBIN CONC 30.7 GM/DL 32.3-36.5 L (AKER) (test code = 752) RED CELL DISTRIBUTION WIDTH 16.1 % 11.6-14.4 H (BEAKER) (test code = 412) PLATELET COUNT (AKER) (test 116 K/CU MM 150-450 L code [...] (BEAKER) (test code = Normal 762) POCT-GLUCOSE [id number] 11:52:00 Test Item Value Reference Range Interpretation Comments POC-GLUCOSE METER 143 mg/dL 70-[address] [facility] 6720 (BEAKER) (test code = [place] 1538) [address] POCT-GLUCOSE [id number] 08:04:00 Test Item Value Reference Range Interpretation Comments POC-GLUCOSE METER 86 mg/dL 70-[address] [facility] 67[address] (BEAKER) (test code = [place] [address]38) [id number] 06:07:00 Test Item Value Reference Range Interpretation Comments MAGNESIUM (BEAKER) 1.6 mg/dL 1.6-2.6 Specimen slightly (test code = 627) hemolyzed BASIC METABOLIC [id number] 06:07:00 Test Item Value Reference Range Interpretation [...] NOT APPLICABLE FOR DIALYSIS PATIEN TS. POCT-GLUCOSE [id number] 20:42:00 Test Item Value Reference Range Interpretation Comments POC-GLUCOSE METER 338 mg/dL 70-[address] [facility] 67[address] ([facility]) (test code = [place] [facility] 1538) [address] POCT-GLUCOSE [id number] 17:41:00 Test Item Value Reference Range Interpretation Comments POC-GLUCOSE METER 303 mg/dL 70-[address] [facility] 6720 ([facility]) (test code = [place] [facility] 1538) [address] RAD, CHEST, 1 VIEW, NON [id number] 14:44:00Reason for exam:->shortness of breath s/p RHCShould this be performed at the bedside?->YesFINAL REPORT CLINICAL HISTORY: shortness of breath s/p RHC TECHNIQUE: 1 viewof the chest. COMPARISON: 01/31/2017 IMPRESSION: Trace bilateral pleural effusions are again seen with left basilar atelectasis. The cardiomediastinal silhouette is magnified by technique with a pacemaker. Signed: Barbara Espinoza MDReport Verified Date/Time: 02/05/2017 14:44:20 Reading Location: [facility] B1 C013W Consult Reading Room CBC W/PLT COUNT & AUTO [id number] 14:37:00 Test Item Value Reference Range Interpretation [...] (BEAKER) (test code = Normal 762) POCT-GLUCOSE [id number] 12:08:00 Test Item Value Reference Range Interpretation Comments POC-GLUCOSE METER 197 mg/dL 70-110 H TESTED AT [place] [address] (BEAKER) (test code = [facility] 1538) [address] POCT-GLUCOSE [id number] 07:55:00 Test Item Value Reference Range Interpretation Comments POC-GLUCOSE METER 149 mg/dL 70-110 H TESTED AT [place] [address] (BEAKER) (test code = [facility] 1538) [address] [id number] 05:21:00 Test Item Value Reference Range Interpretation Comments MAGNESIUM (BEAKER) (test code = 1.4 mg/dL 1.6-2.6 L 627) BASIC METABOLIC [id number] 05:21:00 Test Item Value Reference Range Interpretation [...] NOT APPLICABLE FOR DIALYSIS PATIEN TS. POCT-GLUCOSE [id number] 21:03:00 Test Item Value Reference Range Interpretation Comments POC-GLUCOSE METER 296 mg/dL 70-[address] [facility] 67[address] ([facility]) (test code = [place] 1538) [address] POCT-GLUCOSE [id number] 17:18:00 Test Item Value Reference Range Interpretation Comments POC-GLUCOSE METER 275 mg/dL 70-[address] [facility] 6720 ([facility]) (test code = [place] 1538) [address] CBC W/PLT COUNT & AUTO [id number] 15:04:00 Test Item Value Reference Range Interpretation [...] COUNTED (BEAKER) (test code = 1351) POCT-GLUCOSE [id number] 12:17:00 Test Item Value Reference Range Interpretation Comments POC-GLUCOSE METER 208 mg/dL 70-[address] [facility] 67[address] (BEAKER) (test code = [place] 1538) [address] POCT-GLUCOSE [id number] 08:57:00 Test Item Value Reference Range Interpretation Comments POC-GLUCOSE METER 230 mg/dL 70-[address] [facility] 67[address] (BEAKER) (test code = [place] 1538) [address] [id number] 05:56:00 Test Item Value Reference Range Interpretation Comments MAGNESIUM (BEAKER) (test code = 1.6 mg/dL 1.6-2.6 627) BASIC METABOLIC [id number] 05:56:00 Test Item Value Reference Range Interpretation [...] NOT APPLICABLE FOR DIALYSIS PATIEN TS. POCT-GLUCOSE [id number] 21:20:00 Test Item Value Reference Range Interpretation Comments POC-GLUCOSE METER 329 mg/dL 70-110 H Notified Mandi Smith MD/TESTED (BEAKER) (test code = AT [facility] 67[address] [facility] 1538) [facility] [address] POCT-GLUCOSE [id number] 18:14:00 Test Item Value Reference Range Interpretation Comments POC-GLUCOSE METER 299 mg/dL 70-[address] [facility] 6720 (AKER) (test code = [place] [facility] 1538) [address] CBC W/PLT COUNT & AUTO [id number] 15:17:00 Test Item Value Reference Range Interpretation [...] (BEAKER) (test code = Normal 762) POCT-GLUCOSE [id number] 12:54:00 Test Item Value Reference Range Interpretation Comments POC-GLUCOSE METER 173 mg/dL 70-[address] [facility] 6720 (BEAKER) (test code = [place] 1538) [address] URINALYSIS W/ REFLEX URINE [id number] 12:06:00 Test Item Value Reference Range Interpretation [...] code = 1584) SOURCE(BEAKER) (test code = 2794) CREATININE, RANDOM [id number] 10:52:00 Test Item Value Reference Range Interpretation Comments CREATININE URINE (BEAKER) (test 127.3 mg/dL code = 375) Reference Range: No NormalsPROTEIN, RANDOM [id number] 10:52:00 Test Item Value Reference Range Interpretation Comments PROTEIN, URINE (BEAKER) (test code = 19 mg/dL 0-14 H 1569) POCT-GLUCOSE [id number] 07:55:00 Test Item Value Reference Range Interpretation Comments POC-GLUCOSE METER 88 mg/dL 70-[address] [facility] 6720 (BEAKER) (test code = [place] [facility] [address] 1538) [id number] 05:22:00 Test Item Value Reference Range Interpretation Comments MAGNESIUM (BEAKER) (test code = 1.8 mg/dL 1.6-2.6 627) BASIC METABOLIC [id number] 05:22:00 Test Item Value Reference Range Interpretation [...] 0-100 H (test code = 700) POCT-GLUCOSE [id number] 21:36:00 Test Item Value Reference Range Interpretation Comments POC-GLUCOSE METER 230 mg/dL 70-[address] [facility] 67[address] ([facility] (test code = [place] 1538) [address] POCT-GLUCOSE [id number] 17:50:00 Test Item Value Reference Range Interpretation Comments POC-GLUCOSE METER 185 mg/dL 70-110 H TESTED AT [place] [address] ([facility]) (test code = [place] 1538) [address] POCT-GLUCOSE [id number] 12:49:00 Test Item Value Reference Range Interpretation Comments POC-GLUCOSE METER 168 mg/dL 70-110 H TESTED AT [place] [address] ([facility] (test code = [place] 1538) [address] CT, CHEST, WITHOUT [id number] 11:27:00FINAL REPORT Chest CT without contrast Reason [...] MDReport Verified Date/Time: 02/02/2017 11:27:58 Reading Location: [facility] B1 C013X Ortho Consult Reading Room POCT-GLUCOSE [id number] 08:24:00 Test Item Value Reference Range Interpretation Comments POC-GLUCOSE METER 84 mg/dL 70-[address] [facility] 6720 (BEAKER) (test code = [place] [address] 1538) [id number] 07:42:00 Test Item Value Reference Range Interpretation Comments MAGNESIUM (BEAKER) (test code = 1.8 mg/dL 1.6-2.6 627) BASIC METABOLIC [id number] 07:42:00 Test Item Value Reference Range Interpretation [...] PATIEN TS. CBC W/PLT COUNT & AUTO [id number] 07:40:00 Test Item Value Reference Range Interpretation [...] % 0-1 PERCENT (BEAKER) (test code = 2804) POCT-GLUCOSE [id number] 21:29:00 Test Item Value Reference Range Interpretation Comments POC-GLUCOSE METER 273 mg/dL 70-110 H TESTED AT [place] [address] ([facility]) (test code = [place] 1538) [address] POCT-GLUCOSE [id number] 19:21:00 Test Item Value Reference Range Interpretation Comments POC-GLUCOSE METER 286 mg/dL 70-110 H TESTED AT [place] [address] ([facility] (test code = [place] 1538) [address] POCT-GLUCOSE [id number] 17:33:00 Test Item Value Reference Range Interpretation Comments POC-GLUCOSE METER 263 mg/dL 70-110 H TESTED AT [place] [address] ([facility]) (test code = [place] 1538) [address] POCT-GLUCOSE [id number] 12:25:00 Test Item Value Reference Range Interpretation Comments POC-GLUCOSE METER 196 mg/dL 70-[address] [facility] 6720 (BEAKER) (test code = [place] 1538) [address] CBC W/PLT COUNT & AUTO [id number] 10:54:00 Test Item Value Reference Range Interpretation [...] (BEAKER) (test code = Normal 762) POCT-GLUCOSE [id number] 08:17:00 Test Item Value Reference Range Interpretation Comments POC-GLUCOSE METER 176 mg/dL 70-[address] [facility] 67[address] (BEAKER) (test code = [place] 1538) [address] [id number] 06:41:00 Test Item Value Reference Range Interpretation Comments MAGNESIUM (BEAKER) (test code = 1.7 mg/dL 1.6-2.6 627) BASIC METABOLIC [id number] 06:41:00 Test Item Value Reference Range Interpretation [...] NOT APPLICABLE FOR DIALYSIS PATIEN TS. POCT-GLUCOSE [id number] 21:33:00 Test Item Value Reference Range Interpretation Comments POC-GLUCOSE METER 295 mg/dL 70-110 H TESTED AT [place] [address] ([facility]) (test code = [place] [facility] 1538) [address] POCT-GLUCOSE [id number] 17:47:00 Test Item Value Reference Range Interpretation Comments POC-GLUCOSE METER 277 mg/dL 70-110 H TESTED AT [place] [address] ([facility]) (test code = [place] [facility] 1538) [address] RAD, CHEST, 2 [id number] 15:44:00Reason for exam:->dyspneaFINAL REPORT HISTORY : dyspnea. [...] Moran Verified Date/Time: 01/31/2017 15:44:13 Reading Location: [address] Ortho Consult Reading Room POCT-GLUCOSE [id number] 11:51:00 Test Item Value Reference Range Interpretation Comments POC-GLUCOSE METER 238 mg/dL 70-110 H TESTED AT [place] [address] ([facility]) (test code = [place] [facility] 1538) [address] POCT-GLUCOSE [id number] 09:54:00 Test Item Value Reference Range Interpretation Comments POC-GLUCOSE METER 224 mg/dL 70-110 H TESTED AT [place] [address] ([facility]) (test code = [place] [facility] 1538) [address] CBC W/PLT COUNT & AUTO [id number] 05:34:00 Test Item Value Reference Range Interpretation Comments WHITE BLOOD CELL COUNT ([facility]) 9.4 K/ L 3.5-10.5 (test code = [...] 0-1 PERCENT (BEAKER) (test code = 2801) [id number] 05:19:00 Test Item Value Reference Range Interpretation Comments MAGNESIUM (BEAKER) (test code = 1.8 mg/dL 1.6-2.6 627) BASIC METABOLIC [id number] 05:19:00 Test Item Value Reference Range Interpretation [...] APPLICABLE FOR DIALYSIS PATIEN TS. STREP PNEUMONIAE [id number] 23:56:00 Test Item Value Reference Range Interpretation [...] detection limit of the test. LEGIONELLA ANTIGEN, [id number] 23:54:00 Test Item Value Reference Range Interpretation [...] may cau se disease. INFLUENZA A H1N1 [id number] 23:10:00 Test Item Value Reference Range Interpretation Comments INFLUENZA A RNA Not Detected Not Detected, (BEAKER) (test code = Inconclusive 1545) NOVEL H1N1 RNA (BEAKER) Not Detected Not Detected, (test code = 1546) Inconclusive These assays were performed by real-time RT-PCR (customer service clerk-PCR) utilizing fluorogenic hydrolysis probe technology for the detection of human Influenza A viruses and the differential detection of novel H1N1 Influenza virus in respiratory specimens. The test is composed of (1) an RNA extraction from patient specimen, and (2) customer service clerk-PCR amplification and detection with human Influenza A and novel K8P9-rvwxltmm primers and probes. A well-conserved region of [...] its performance characte ristics determined by the [facility] Pathology Department, Section of Molecular Pathology. It has not been cleared or approved by the U.S. Food and Drug Administration (FDA). SinceFDA approval is not required for clinical use of the test, validation was done as required by The Clinical Laboratory Amendments of 1988.These assays were performed by real-time RT-PCR (customer service clerk-PCR) utilizing fluorogenic hydrolysis probe technology for the detection of human Influenza A viruses and the differential detection of novel H1N1 Influenza virus in respiratory specimens. The test is composed of (1) an RNA extraction from patient specimen, and (2) customer service clerk-PCR amplification and detection with human In fluenza A and novel M1E4-lgqlijwv primers and probes. A well-conserved region of [...] and its performance characteristics determined by the [facility] Pathology Department, Section of Molecular [...] 233 mg/dL 70-[address] [facility] 6720 (BEAKER) (test code = [place] 1538) [address] U/S, RENAL, [id number] 22:23:00Reason for exam:->akiFINAL REPORT U/S, RENAL, COMPLETE [...] MDReport Verified Date/Time: 01/30/2017 22:23:06 Reading Location: [address] Ortho Consult Reading Room SODIUM, RANDOM [id number] 20:40:00 Test Item Value Reference Range Interpretation Comments SODIUM URINE (BEAKER) (test code = < meq/L 243) Reference Range: No NormalsEOSINOPHIL SMEAR, [id number] 20:40:00 Test Item Value Reference Range Interpretation Comments EOSINOPHIL SMEAR, URINE (BEAKER) No EOS seen No EOS seen (test code = 1851) CREATININE, RANDOM [id number] 20:24:00 Test Item Value Reference Range Interpretation Comments CREATININE URINE (BEAKER) (test 113.2 mg/dL code = 375) Reference Range: No NormalsMICROALBUMIN, RANDOM [id number] 20:24:00 Test Item Value Reference Range Interpretation Comments MICROALBUMIN URINE (BEAKER) (test 4.2 mg/dL code = 1794) Reference Range: No NormalsURINALYSIS W/ [id number] 20:14:00 Test Item Value Reference Range Interpretation [...] 516) SOURCE(BEAKER) (test code = Urine, Voided 5174) POCT-GLUCOSE [id number] 18:25:00 Test Item Value Reference Range Interpretation Comments POC-GLUCOSE METER 230 mg/dL 70-110 H TESTED AT [place] [address] (BEAKER) (test code = [place] 1538) [address] POCT-GLUCOSE [id number] 13:49:00 Test Item Value Reference Range Interpretation Comments POC-GLUCOSE METER 267 mg/dL 70-[address] [facility] 6720 (BEAKER) (test code = [place] [facility] 1538) [address] HEMOGLOBIN [id number] 11:50:00 Test Item Value Reference Range Interpretation Comments HEMOGLOBIN A1C (BEAKER) (test code = 10.7 % 4.3-6.1 H 368) TROPONIN [id number] 11:42:00 Test Item Value Reference Range Interpretation [...] acidosis, acute neurological disease, and persistent tachyarrhythmia.POCT-GLUCOSE [id number] 09:41:00 Test Item Value Reference Range Interpretation Comments POC-GLUCOSE METER 228 mg/dL 70-[address] [facility] 6720 (BEAKER) (test code = [place] 1538) [address] RAD, CHEST, 1 VIEW, NON [id number] 07:41:00Reason for exam:->eval pneumoniaShould this be performed [...] could represent atelectasis or pneumonitis. Signed: Modesta Moraneport Verified Date/Time: 01/30/2017 07:41:41 ReadingLocation: [facility] B1 C013T Transitional Reading Room MAGNESIUM 2017-01-30 02:54:00 Test Item Value Reference Range Interpretation Comments MAGNESIUM (BEAKER) (test code = 1.6 mg/dL 1.6-2.6 627) BASIC METABOLIC [id number] 02:54:00 Test Item Value Reference Range Interpretation [...] FOR DIALYSIS PATIEN TS. RAPID INFLUENZA A&B [id number] 02:41:00 Test Item Value Reference Range Interpretation Comments RAPID INFLUENZA A AG (BEAKER) Negative Negative, Inconclusive (test code = 1622) RAPID INFLUENZA B AG (BEAKER) Negative Negative, Inconclusive (test code = 1623) CBC W/PLT COUNT & AUTO [id number] 02:07:00 Test Item Value Reference Range Interpretation [...] PERCENT (BEAKER) (test code = 2801) POCT-GLUCOSE [id number] 23:18:00 Test Item Value Reference Range Interpretation Comments POC-GLUCOSE METER 230 mg/dL 70-[address] [facility] 6720 (BEAKER) (test code = [place] 1538) [address] CHEM [id number] 10:03:00 Test Item Value Reference Range Interpretation Comments Phosphorus (test code = Phosphorus) 3.1 2.5-4.5 [facility] [id number] 10:03:00 Test Item Value Reference Range Interpretation Comments Magnesium Lvl (test code = Magnesium 2.6 1.8-2.4 Lvl) [facility]MvtwgadBAFXJJJLTDQI7362-50-44 10:03:00 Test Item Value Reference Range Interpretation Comments AGAP (test code = AGAP) 11.1 10.0-20.0 [facility] CenterSeusmqoWCNKADUJBNOP5077-83-06 10:03:00 Test Item Value Reference Range Interpretation Comments Potassium Lvl (test code = Potassium 4.1 3.5-5.1 Lvl) [facility]OBC0073[facility]-05 10:03:00 Test Item Value Reference Range Interpretation Comments Chloride Lvl (test code = Chloride Lvl) 105 95-109 [facility]UnniruoLVQJNMTHYPMO0907-30-03 10:03:00 Test Item Value Reference Range Interpretation Comments CO2 (test code = CO2) 25 24-32 [facility]YqvfrgaRCTIGGMZYMOO2982-11-93 10:03:00 Test Item Value Reference Range Interpretation Comments eGFR (test code = eGFR) 74 [facility]SvteijzJJCZSFWGIHMO9801-66-77 10:03:00 Test Item Value Reference Range Interpretation Comments BUN (test code = BUN) 16 7-22 [facility]ZlddqpjIXTIDIKHCFXQ3373-06-70 10:03:00 Test Item Value Reference Range Interpretation Comments Glucose Lvl (test code = Glucose Lvl) 177 70-99 [facility]JclgpvsYCEOAWXEZHQP0831-68-04 10:03:00 Test Item Value Reference Range Interpretation Comments Calcium Lvl (test code = Calcium Lvl) 8.7 8.5-10.5 [facility]CjosmtiPJHLTRWNUTAU4741-99-56 10:03:00 Test Item Value Reference Range Interpretation Comments Creatinine Lvl (test code = Creatinine 1.00 0.50-1.40 Lvl) [facility]MeymgatETTMNAZTUYEU3101-67-88 10:03:00 Test Item Value Reference Range Interpretation Comments Sodium Lvl (test code = Sodium Lvl) 137 135-145 [facility]JdwaqmkYJEDIAFMKL6670-19-66 10:03:00 Test Item Value Reference Range Interpretation Comments Plt Morph (test code = Normal (09/12/16 5:03 AM) Plt Morph) [facility] HospitalMghnjzfPATZZRMIUE1808-10-04 10:03:00 Test Item Value Reference Range Interpretation Comments Bands (test code = 0.0 See_Comment [Automat ed message] The Bands) system which ge nerated this result transmit vy reference range : <=11.0. The reference r gianfranco was not used to interpr et this result as daquan l/abnormal. [facility] HospitalEdjfiwtRUQBBNPWYW2044-89-85 10:03:00 Test Item Value Reference Range Interpretation Comments Atypical Lymphs (test code = Atypical 0.0 Lymphs) [facility] HospitalJmzqkmrWBWUWQLBIA7890-92-78 10:03:00 Test Item Value Reference Range Interpretation Comments Monocytes (test code = Monocytes) 17.0 2.0-12.0 [facility] HospitalMqoeuinUQIAKHHSXE8561-18-23 10:03:00 Test Item Value Reference Range Interpretation Comments RBC Morph (test code = Normal (09/12/16 5:03 AM) RBC Morph) [facility] HospitalAeyzfshLLALAFWXZL4309-17-24 10:03:00 Test Item Value Reference Range Interpretation Comments Eosinophils (test code = 1.0 See_Comment [A utomated message] The Eosinophils) system which ge nerated this result tra nsmitted reference range : <=4.0. The reference r gianfranco was not used to int erpret this result as normal/abnormal . [facility] HospitalAkjlvsqXUSQKFHFNF8676-57-64 10:03:00 Test Item Value Reference Range Interpretation Comments Lymphocytes (test code = Lymphocytes) 27.0 20.0-40.0 [facility] HospitalNewcthjDYHCSATBPX7562-85-33 10:03:00 Test Item Value Reference Range Interpretation Comments Segs-Bands # (test code = Segs-Bands #) 4.8 1.5-8.1 [facility] HospitalYjykkhmMFZIDPHNVC6448-06-01 10:03:00 Test Item Value Reference Range Interpretation Comments Lymphocytes # (test code = Lymphocytes 2.3 1.0-5.5 #) [facility] HospitalZlqywljAAFDKBXIQY5166-93-81 10:03:00 Test Item Value Reference Range Interpretation Comments Segs (test code = Segs) 55.0 45.0-75.0 [facility] HospitalXhufrkcCEEUQPQIFB3506-81-32 10:03:00 Test Item Value Reference Range Interpretation Comments Eosinophils # (test code 0.1 See_Comment [A utomated message] The = Eosinophils #) system whic h generated this result tra nsmitted reference range : <=0.5. The reference r gianfranco was not used to int erpret this result as normal/abnormal . [facility] HospitalMyaejfhORUDZDNKEX5973-43-33 10:03:00 Test Item Value Reference Range Interpretation Comments Monocytes # (test code 1.5 See_Comment [Aut omated message] The = Monocytes #) system which generated this result tra nsmitted reference range : <=0.8. The reference r gianfranco was not used to int erpret this result as normal/abnormal . [facility] HospitalGpenlxnWOCXMIMBEQ1099-07-11 10:03:00 Test Item Value Reference Range Interpretation Comments MPV (test code = MPV) 7.7 7.4-10.4 [facility] HospitalVuikohsOPELHLJUUL1147-01-38 10:03:00 Test Item Value Reference Range Interpretation Comments MCH (test code = MCH) 29.8 pg 27.0-31.0 [facility] HospitalGguiqskAYCBKZZUJT1460-45-86 10:03:00 Test Item Value Reference Range Interpretation Comments MCV (test code = MCV) 88.2 80.0-94.0 [facility] HospitalWmudclvVYORZRSPHI9451-16-25 10:03:00 Test Item Value Reference Range Interpretation Comments Platelet (test code = Platelet) 177 133-450 [facility] HospitalNsspdhtSCONJUXWVL1253-01-66 10:03:00 Test Item Value Reference Range Interpretation Comments RDW (test code = RDW) 14.7 11.5-14.5 [facility] HospitalMieotkgVNUUSOOEMW0704-19-36 10:03:00 Test Item Value Reference Range Interpretation Comments MCHC (test code = MCHC) 33.8 32.0-36.0 [facility] HospitalKlsehmlPTFCXKVQAX4814-94-92 10:03:00 Test Item Value Reference Range Interpretation Comments RBC (test code = RBC) 3.97 4.70-6.10 [facility] HospitalBbftpblIMRKJSDRPM6369-45-88 10:03:00 Test Item Value Reference Range Interpretation Comments Hgb (test code = Hgb) 11.8 14.0-18.0 [facility] HospitalMlkloijKFTEDFASRO9523-10-66 10:03:00 Test Item Value Reference Range Interpretation Comments WBC (test code = WBC) 8.7 3.7-10.4 [facility] HospitalStfldewECHNSKZBCN0857-92-94 10:03:00 Test Item Value Reference Range Interpretation Comments Hct (test code = Hct) 35.0 42.0-54.0 [facility]2017-08-04 23:45:00 Test Item Value Reference Range Interpretation Comments BUN (test code = BUN) 13 7-22 [facility]2017-08-04 23:45:00 Test Item Value Reference Range Interpretation Comments Glucose Lvl (test code = Glucose Lvl) 146 70-99 [facility]2017-08-04 23:45:00 Test Item Value Reference Range Interpretation Comments eGFR (test code = eGFR) 68 [facility]2017-08-04 23:45:00 Test Item Value Reference Range Interpretation Comments AGAP (test code = AGAP) 13.8 10.0-20.0 [facility] CenterMark43 [id number] 23:45:00 Test Item Value Reference Range Interpretation Comments Calcium Lvl (test code = Calcium Lvl) 9.0 8.5-10.5 [facility] HospitalInspirato [id number] 23:45:00 Test Item Value Reference Range Interpretation Comments CO2 (test code = CO2) 26 24-32 [facility] CenterMark43 WFLQI8726-29-03 23:45:00 Test Item Value Reference Range Interpretation Comments Chloride Lvl (test code = Chloride Lvl) 104 95-109 [facility] CenterMark43 QMGOJ8255-97-10 23:45:00 Test Item Value Reference Range Interpretation Comments Potassium Lvl (test code = Potassium 3.8 3.5-5.1 Lvl) [facility] CenterMark43 QXHBZ9861-93-28 23:45:00 Test Item Value Reference Range Interpretation Comments Sodium Lvl (test code = Sodium Lvl) 140 135-145 [facility] CenterMark43 JPFRL6451-80-02 23:45:00 Test Item Value Reference Range Interpretation Comments Creatinine Lvl (test code = Creatinine 1.07 0.50-1.40 Lvl) [facility] CenterVetCentric [facility] [id number] 16:12:00 Test Item Value Reference Range Interpretation Comments ABO/Rh (test code = ABO/Rh) O POS [facility] [employer] [facility] [id number] 16:12:00 Test Item Value Reference Range Interpretation Comments Antibody Scrn (test Negative (09/11/16 11:12 code = Antibody Scrn) AM) [facility] CenterMark43 [id number] 16:12:00 Test Item Value Reference Range Interpretation Comments Phosphorus (test code = Phosphorus) 3.3 2.5-4.5 [facility] HospitalInspirato [id number] 16:12:00 Test Item Value Reference Range Interpretation Comments Magnesium Lvl (test code = Magnesium 1.6 1.8-2.4 Lvl) [facility]TenthtmVUSYEWTAVARX1480-19-04 16:12:00 Test Item Value Reference Range Interpretation Comments AGAP (test code = AGAP) 9.7 10.0-20.0 [facility] MichiganZaxognsPBCUXSBUOQYJ5996-70-13 16:12:00 Test Item Value Reference Range Interpretation Comments eGFR (test code = eGFR) 69 [facility] MichiganDjqmkbaQISCFWELMLYE0021-26-58 16:12:00 Test Item Value Reference Range Interpretation Comments CO2 (test code = CO2) 28 24-32 [facility] MichiganWawmugfCNPOQPOYUVDQ6853-98-38 16:12:00 Test Item Value Reference Range Interpretation Comments Chloride Lvl (test code = Chloride Lvl) 102 95-109 [facility] MichiganTbpspiiBOUKZYSQSALD6906-58-72 16:12:00 Test Item Value Reference Range Interpretation Comments Potassium Lvl (test code = Potassium 3.7 3.5-5.1 Lvl) [facility] MichiganOtjaqchEQFEZFQLLKEW2727-94-59 16:12:00 Test Item Value Reference Range Interpretation Comments Calcium Lvl (test code = Calcium Lvl) 8.9 8.5-10.5 [facility] MichiganLjqdwqjIUOKDLTRNHMA9552-88-87 16:12:00 Test Item Value Reference Range Interpretation Comments Sodium Lvl (test code = Sodium Lvl) 136 135-145 [facility] MichiganQxztawyIIMYAXKMHCKU1218-43-71 16:12:00 Test Item Value Reference Range Interpretation Comments Creatinine Lvl (test code = Creatinine 1.06 0.50-1.40 Lvl) [facility]BgjrouvXXQSFJGDCXEE2991-53-94 16:12:00 Test Item Value Reference Range Interpretation Comments BUN (test code = BUN) 15 7-22 [facility] MichiganQrqonnuECZLMYTPSFWC4912-30-41 16:12:00 Test Item Value Reference Range Interpretation Comments Glucose Lvl (test code = Glucose Lvl) 87 70-99 [facility] HospitalUciaswgWDPTPRZXSW8485-65-29 16:12:00 Test Item Value Reference Range Interpretation Comments Hct (test code = Hct) 33.1 42.0-54.0 [facility] HospitalMudsjbsQCLFDNENGW9945-32-56 16:12:00 Test Item Value Reference Range Interpretation Comments Platelet (test code = Platelet) 188 133-450 [facility] HospitalEtqddqnALVLEUAZFG7768-26-53 16:12:00 Test Item Value Reference Range Interpretation Comments Hgb (test code = Hgb) 11.0 14.0-18.0 [facility] HospitalPrbxbeoFENRRLRUON0937-47-48 16:12:00 Test Item Value Reference Range Interpretation Comments MPV (test code = MPV) 7.5 7.4-10.4 [facility] HospitalZmdzsfcTHFUBQUXZH6483-55-20 16:12:00 Test Item Value Reference Range Interpretation Comments MCV (test code = MCV) 89.2 80.0-94.0 [facility] HospitalOzxmpejUPZCBBFSOO9088-62-27 16:12:00 Test Item Value Reference Range Interpretation Comments MCH (test code = MCH) 29.5 pg 27.0-31.0 [facility] HospitalAmmqqmyERASOZSPJD3937-18-43 16:12:00 Test Item Value Reference Range Interpretation Comments RBC (test code = RBC) 3.72 4.70-6.10 [facility] HospitalMgeexcpYURGCPXHDZ0601-68-92 16:12:00 Test Item Value Reference Range Interpretation Comments RDW (test code = RDW) 14.7 11.5-14.5 [facility] HospitalLgiqahxRWEFXJQTHO2636-13-75 16:12:00 Test Item Value Reference Range Interpretation Comments WBC (test code = WBC) 8.2 3.7-10.4 [facility] HospitalLxexjbbGIQRWYBTJH3062-49-37 16:12:00 Test Item Value Reference Range Interpretation Comments MCHC (test code = MCHC) 33.1 32.0-36.0 [facility] HospitalKawslxgDSOWRQJCOJ4551-12-54 16:12:00 Test Item Value Reference Range Interpretation Comments PT (test code = PT) 16.6 s 12.0-14.7 [facility] HospitalXxrhwegTZTNCCBDSY4288-87-56 16:12:00 Test Item Value Reference Range Interpretation Comments INR (test code = INR) 1.32 0.85-1.17 [facility] HospitalHzjvokxEWMBFVGAAE5982-55-32 16:12:00 Test Item Value Reference Range Interpretation Comments PTT (test code = PTT) 43.0 s 22.9-35.8 [facility] HospitalHpztwjxFWBPAKZKCJ5746-25-01 16:12:00 Test Item Value Reference Range Interpretation Comments Monocytes # (test code 1.6 See_Comment [Aut omated message] The = Monocytes #) system which generated this result tra nsmitted reference range : <=0.8. The reference r gianfranco was not used to int erpret this result as normal/abnormal . [facility] HospitalHcjbqqoKJAVIJAJGG1584-36-48 16:12:00 Test Item Value Reference Range Interpretation Comments Eosinophils # (test code 0.3 See_Comment [A utomated message] The = Eosinophils #) system whic h generated this result tra nsmitted reference range : <=0.5. The reference r gianfranco was not used to int erpret this result as normal/abnormal . [facility] HospitalVcyjsyrUKQQZRAHPF3158-83-24 16:12:00 Test Item Value Reference Range Interpretation Comments Lymphocytes # (test code = Lymphocytes 1.7 1.0-5.5 #) [facility] HospitalHhmijdcLMAVVKUPJV2053-00-14 16:12:00 Test Item Value Reference Range Interpretation Comments Basophils (test code = 0.5 See_Comment [Aut omated message] The Basophils) system which ge nerated this result tra nsmitted reference range : <=1.0. The reference r gianfranco was not used to int erpret this result as normal/abnormal . [facility] HospitalOmnbjdiCSDRMRQZRG2601-39-52 16:12:00 Test Item Value Reference Range Interpretation Comments Segs-Bands # (test code = Segs-Bands #) 4.5 1.5-8.1 [facility] HospitalHuhpmixOWVLTOEXEB2703-29-75 16:12:00 Test Item Value Reference Range Interpretation Comments Eosinophils (test code = 3.4 See_Comment [A utomated message] The Eosinophils) system which ge nerated this result tra nsmitted reference range : <=4.0. The reference r gianfranco was not used to int erpret this result as normal/abnormal . [facility] HospitalUlladuqPRDCUMCAHZ9368-25-80 16:12:00 Test Item Value Reference Range Interpretation Comments Segs (test code = Segs) 55.3 45.0-75.0 [facility] HospitalUzzglseTUMOKKAITN1339-26-32 16:12:00 Test Item Value Reference Range Interpretation Comments Lymphocytes (test code = Lymphocytes) 21.2 20.0-40.0 [facility] HospitalYgmroabOLTHQOOMMA3282-37-19 16:12:00 Test Item Value Reference Range Interpretation Comments Monocytes (test code = Monocytes) 19.6 2.0-12.0 [facility]2015-01-26 16:27:00 Test Item Value Reference Range Interpretation Comments Calcium Lvl (test code = Calcium Lvl) 9.4 8.5-10.5 [facility]2015-01-26 16:27:00 Test Item Value Reference Range Interpretation Comments CO2 (test code = CO2) 24-32 [facility]2015-01-26 16:27:00 Test Item Value Reference Range Interpretation Comments eGFR (test code = eGFR) 40 [facility]2015-01-26 16:27:00 Test Item Value Reference Range Interpretation Comments BUN (test code = BUN) 45 7-22 [facility]2015-01-26 16:27:00 Test Item Value Reference Range Interpretation Comments Glucose Lvl (test code = Glucose Lvl) 100 70-99 [facility]2015-01-26 16:27:00 Test Item Value Reference Range Interpretation Comments Potassium Lvl (test code = Potassium 4.4 3.5-5.1 Lvl) [facility]2015-01-26 16:27:00 Test Item Value Reference Range Interpretation Comments Chloride Lvl (test code = Chloride Lvl) 106 95-109 [facility]2015-01-26 16:27:00 Test Item Value Reference Range Interpretation Comments Creatinine Lvl (test code = Creatinine 1.7 0.5-1.4 Lvl) [facility]2015-01-26 16:27:00 Test Item Value Reference Range Interpretation Comments Sodium Lvl (test code = Sodium Lvl) 139 135-145 [facility]2015-01-26 16:27:00 Test Item Value Reference Range Interpretation Comments AGAP (test code = AGAP) 11.4 10.0-20.0 [facility] HospitalCufjaccBLAWHBYSWG3081-19-22 16:27:00 Test Item Value Reference Range Interpretation Comments MPV (test code = MPV) 7.3 7.4-10.4 [facility] HospitalWfpspcaYJQTEBXZTS7001-94-24 16:27:00 Test Item Value Reference Range Interpretation Comments MCHC (test code = MCHC) 33.9 32.0-36.0 [facility] HospitalUyghfhwPDCUXOVNEZ7930-64-90 16:27:00 Test Item Value Reference Range Interpretation Comments Platelet (test code = Platelet) 198 133-450 [facility] HospitalEkszejyDQUJFXLZCL3425-26-70 16:27:00 Test Item Value Reference Range Interpretation Comments Hgb (test code = Hgb) 13.7 14.0-18.0 [facility] HospitalAeaithgFRZNWTNANX2558-34-98 16:27:00 Test Item Value Reference Range Interpretation Comments RDW (test code = RDW) 14.6 11.5-14.5 [facility] HospitalDgloonvACWAZFRZJI9829-00-40 16:27:00 Test Item Value Reference Range Interpretation Comments Hct (test code = Hct) 40.4 42.0-54.0 [facility] HospitalAojwlcrCXTQIHSTOC3541-77-89 16:27:00 Test Item Value Reference Range Interpretation Comments MCH (test code = MCH) 31.5 pg 27.0-31.0 [facility] HospitalAcplflhGWNQSHWJUF3829-34-09 16:27:00 Test Item Value Reference Range Interpretation Comments MCV (test code = MCV) 92.8 80.0-94.0 [facility] HospitalLtqofacONCIKPJJCB8906-39-43 16:27:00 Test Item Value Reference Range Interpretation Comments RBC (test code = RBC) 4.35 4.70-6.10 [facility] HospitalQmbiwosYNGUQKMSOL1897-30-53 16:27:00 Test Item Value Reference Range Interpretation Comments WBC (test code = WBC) 9.4 3.7-10.4 [facility] HospitalWvvxmqjVOZDFDLIFY5947-67-98 16:27:00 Test Item Value Reference Range Interpretation Comments Eosinophils (test code = 2.4 See_Comment [A utomated message] The Eosinophils) system which ge nerated this result tra nsmitted reference range : <=4.0. The reference r gianfranco was not used to int erpret this result as normal/abnormal . [facility] HospitalJtsjkgxSWQIFMHBJS3770-75-00 16:27:00 Test Item Value Reference Range Interpretation Comments Monocytes (test code = Monocytes) 14.6 2.0-12.0 [facility] HospitalIdimlkdYGTCUCKMHC1719-58-96 16:27:00 Test Item Value Reference Range Interpretation Comments Segs-Bands # (test code = Segs-Bands #) 5.5 1.5-8.1 [facility] HospitalVuvfyxmIATHAZNWMU9256-73-77 16:27:00 Test Item Value Reference Range Interpretation Comments Lymphocytes (test code = Lymphocytes) 24.1 20.0-40.0 [facility] HospitalIjxdiqtDCOSZXAJMU0788-20-85 16:27:00 Test Item Value Reference Range Interpretation Comments Segs (test code = Segs) 58.6 45.0-75.0 [facility] HospitalCsvarfwRQPBSYCWYV4434-04-99 16:27:00 Test Item Value Reference Range Interpretation Comments Basophils # (test code 0.0 See_Comment [Aut omated message] The = Basophils #) system which generated this result tra nsmitted reference range : <=0.2. The reference r gianfranco was not used to int erpret this result as normal/abnormal . [facility] HospitalUtevhopGCARKUEVIN9091-42-88 16:27:00 Test Item Value Reference Range Interpretation Comments Eosinophils # (test code 0.2 See_Comment [A utomated message] The = Eosinophils #) system whic h generated this result tra nsmitted reference range : <=0.5. The reference r gianfranco was not used to int erpret this result as normal/abnormal . [facility] HospitalVmidtwjKLTZIEWWHP2766-84-81 16:27:00 Test Item Value Reference Range Interpretation Comments Basophils (test code = 0.3 See_Comment [Aut omated message] The Basophils) system which ge nerated this result tra nsmitted reference range : <=1.0. The reference r gianfranco was not used to int erpret this result as normal/abnormal . [facility] HospitalVihsqswHFTVLWHIVN7750-98-36 16:27:00 Test Item Value Reference Range Interpretation Comments Monocytes # (test code 1.4 See_Comment [Aut omated message] The = Monocytes #) system which generated this result tra nsmitted reference range : <=0.8. The reference r gianfranco was not used to int erpret this result as normal/abnormal . [facility] HospitalJnxcoluFQLCXEGGCP9870-19-63 16:27:00 Test Item Value Reference Range Interpretation Comments Lymphocytes # (test code = Lymphocytes 2.3 1.0-5.5 #) [facility]
--- NOTE | 2021-08-01 15:03 | RAD REPORT ---
EXAM DESCRIPTION: RAD - Knee Left 3 View - 08/01/2021 2:53 pm CLINICAL HISTORY: PAIN COMPARISON: Knee Left 3 View dated 08/28/2015; Knee Left 3 View dated 08/13/2015 FINDINGS: Distal femur and proximal tibia are intact in terms of fracture or acute bone process. The re significant degenerative changes to the articular surfaces of the medial and lateral femoral condy les. Medial joint space narrowing is present progressive from 2016. Degenerative meniscal calcificati ons are present. Spurring is seen along the tibial spine. Patella femoral joint space is narrowed. Patella marginal spurs have enlarged from 2016. The patellof emoral joint space is narrowed. Small joint effusion is present without lipoma hemarthrosis identifiable. Arterial tree calcification s are present. No soft tissue abnormality. IMPRESSION: Small joint effusion on the left knee is seen but no acute bone abnormality is confirmed . Clinical concerns for internal derangement or occult bony injury could be further assessed with MR im aging.
--- NOTE | 2021-08-01 15:05 | RAD REPORT ---
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 No radiographic evidence for loosening. No fracture of the chitim[place] bone identifiable.No measurable joint effusion. No foreign body or other soft tissue ab normality. IMPRESSION: No acute right knee bone or implant finding. No significant change from the June 30 comparison.
[2021-08-01] MEDS ORDERED: HYDROCODONE/APAP 7.5/325 MG TAB ONE (15:47)
--- NOTE | 2021-08-01 16:56 | RAD REPORT ---
EXAM DESCRIPTION: CT - Left Lower Ext Wo Con W/ Mpr - 08/01/2021 4:20 pm CLINICAL HISTORY: fall, pain COMPARISON: Knee Left 3 View dated 08/01/2021 TECHNIQUE: Axial noncontrast 2 mm thick images of the left knee were obtained. Sagittal and coronal reformatted images were generated and reviewed. All CT scans are performed using dose optimization technique as appropriate and may include automate d exposure control or mA/KV adjustment according to patient size. FINDINGS: Prominent medial compartment joint space narrowing present with moderately prominent anita nal spurs. There is spurring along the intercondylar notch and tibial spine. Lateral compartment cat inal spurring is less pronounced. Patella femoral joint space is narrowed with moderate marginal spur ring. No fracture is identified. No pathologic bone process seen. Small joint effusion is present. There is no lipoma hemarthrosis. Contusion or edema changes are seen in the soft tissues of the leg. No air or foreign body. IMPRESSION: Advanced left knee joint degenerative changes are present as detailed. No fracture or acute finding identifiable.
--- NOTE | 2021-08-01 17:08 | EDPHYS ---
Physician Documentation [facility] Name: Ely Coley Age: 76 yrs Sex: Male : 1945 Arrival Date: 08/01/2021 Time: 12:52 Bed 11 Private MD: Jean Carlos Velásquez E ED Physician Jerome Morales HPI: 08/01 14:00 This 76 yrs old Male presents to ER via Wheelchair with complaints of Knee Pain. cp 14:00 The patient presents with an injury, pain, that is acute. The complaints affect the cp left knee. Context: resulted from the patient falling, while walking, the patient can partially bear weight, the patient is able to ambulate, with moderate difficulty. Onset: The symptoms/episode began/occurred yesterday. 14:00 Associated signs and symptoms: The patient has no apparent associated signs or cp symptoms. Patient reports trip and fall forward onto both knees with left knee bearing most of his weight from fall. Noticed small abrasion front of right knee with minimal pain. Left knee pain and difficulty straightening left knee. Historical: - Allergies: 13:45 Glucophage; jl7 13:45 metformin; jl7 13:45 steroids; jl7 - PMHx: 13:45 angina pectoris; Atrial Fib; CVA; Diabetes - IDDM; Diabetes - NIDDM; Hypertension; jl7 Pacemaker; - Immunization history:: Client reports receiving the 2nd dose of the Covid vaccine. - Social history:: Smoking status: Patient denies any tobacco usage or history of. ROS: 14:05 Constitutional: Negative for body aches, chills, fever, poor PO intake. cp 14:05 Eyes: Negative for injury, pain, redness, and discharge. cp 14:05 Neck: Negative for pain with movement, pain at rest, stiffness. 14:05 Cardiovascular: Negative for chest pain, edema, palpitations. 14:05 Respiratory: Negative for cough, shortness of breath, wheezing. 14:05 Abdomen/GI: Negative for abdominal pain, nausea, vomiting, and diarrhea. 14:05 Back: Negative for pain at rest, pain with movement. 14:05 MS/extremity: Positive for pain, of the right knee and left knee. 14:05 Skin: Positive for abrasion(s), of the right knee. 14:05 Neuro: Negative for altered mental status, dizziness, headache, loss of consciousness, numbness, syncope, weakness. 14:05 All other systems are negative. Exam: 14:10 Constitutional: The patient appears in no acute distress, alert, awake, cp non-diaphoretic, non-toxic, well developed, well nourished, overweight 14:10 Head/Face: Normocephalic, atraumatic. cp 14:10 Neck: ROM/movement: is normal, is supple, without pain, no range of motions limitations. 14:10 Chest/axilla: Inspection: normal. 14:10 Cardiovascular: Rate: normal. 14:10 Respiratory: the patient does not display signs of respiratory distress, Respirations: normal, no use of accessory muscles, no retractions, labored breathing, is not present. 14:10 Abdomen/GI: Exam negative for discomfort, distension, guarding, Inspection: abdomen appears normal. 14:10 Back: pain, is absent. 14:10 Musculoskeletal/extremity: Extremities: grossly normal except: noted in the left knee: contusion, swelling, tenderness, There is no evidence of decreased ROM, deformity, noted in the right knee: abrasion, ROM: limited passive range of motion due to pain, in the left knee. 14:10 Neuro: Orientation: to person, place \T\ time. Mentation: is normal. Vital Signs: 13:44 BP 123 / 60; Pulse 65; Resp 17; Temp 97.9; Pulse Ox 99% ; Weight 106.59 kg; Height 6 jl7 ft. 0 in. (182.88 cm); Pain 10/10; 13:44 Body Mass Index 31.87 (106.59 kg, 182.88 cm) jl7 MDM: 12:52 Patient medically screened. rn 17:05 Data reviewed: vital signs, nurses notes, radiologic studies, CT scan, plain films. cp 17:05 Test interpretation: by ED physician or midlevel provider: plain radiologic studies. cp Counseling: I had a detailed discussion with the patient and/or guardian regarding: the historical points, exam findings, and any diagnostic results supporting the discharge/admit diagnosis, radiology results, the need for outpatient follow up, a orthopedic surgeon, to return to the emergency department if symptoms worsen or persist or if there are any questions or concerns that arise at home. Response to treatment: Pain improved. Radiology studies negative for acute fracture. Patient has walker to assist with ambulating. Will discharge to home for continued monitoring. 08/01 13:45 Order name: XRAY Knee LEFT 3 view; Complete Time: 17:00 cp 08/01 13:45 Order name: XRAY Knee RIGHT 3 view; Complete Time: 17:00 cp 08/01 16:06 Order name: Lower Ext Wo Con W/ Mpr; Complete Time: 17:00 EDMS 08/01 17:01 Interpretation: Report reviewed. cp 08/01 17:02 Order name: Ramana wrap-joint; Complete Time: 17:44 cp Administered Medications: 15:43 Drug: Hydrocodone-Acetaminophen (7.5 mg-325 mg) 1 tabs Route: PO; jl7 Disposition Summary: 08/01/21 17:07 Discharge Ordered Location: Home cp Problem: new cp Symptoms: have improved cp Condition: Stable cp Diagnosis - Contusion of left knee cp - Contusion of right knee cp Followup: cp - With: Maximo Del Real MD - When: 2 - 3 days - Reason: Worsening of condition Discharge Instructions: - Discharge Summary Sheet cp - Acute Knee Pain, Adult cp Forms: - Medication Reconciliation Form cp - Thank You Letter cp - Antibiotic Education cp - Prescription Opioid Use cp Prescriptions: - Tramadol 50 mg Oral Tablet - take 1 tablet by ORAL route every 8 hours as needed; 12 tablet; Refills: 0, cp Product Selection Permitted Addendum: 08/04/2021 10:26 Co-signature as Attending Physician, Jerome Morales MD. r n Signatures: Dispatcher [employer] EDJerome Frias MD MD rn Page, Corey, PA PA cp Isabel Avila RN RN jl7 Corrections: (The following items were deleted from the chart) 08/01 16:06 15:55 CT LEFT KNEE WO CONTRAST ordered. EDMS EDMS
--- NOTE | 2021-08-01 17:08 | ER ---
Nurse's Notes [facility] Name: Ely Coley Age: 76 yrs Sex: Male : 1945 Arrival Date: 08/01/2021 Time: 12:52 Bed 11 Private MD: Jean Carlos Velásquez E Diagnosis: Contusion of left knee;Contusion of right knee Presentation: 08/01 13:44 Chief complaint: Patient states: Tripped and fell on knees yesterday, reports left knee jl7 pain. Coronavirus screen: At this time, the client does not indicate any symptoms associated with coronavirus-19. Ebola Screen: No symptoms or risks identified at this time. Initial Sepsis Screen: Does the patient meet any 2 criteria? No. Patient's initial sepsis screen is negative. Does the patient have a suspected source of infection? No. Patient's initial sepsis screen is negative. Risk Assessment: Do you want to hurt yourself or someone else? Patient reports no desire to harm self or others. Onset of symptoms was July 31, 2021. 13:44 Method Of Arrival: Wheelchair jl7 13:44 Acuity: MITCH 4 jl7 Triage Assessment: 13:45 General: Appears in no apparent distress. uncomfortable, Behavior is calm, cooperative, jl7 appropriate for age. Pain: Complains of pain in right knee. Historical: - Allergies: 13:45 Glucophage; jl7 13:45 metformin; jl7 13:45 steroids; jl7 - PMHx: 13:45 angina pectoris; Atrial Fib; CVA; Diabetes - IDDM; Diabetes - NIDDM; Hypertension; jl7 Pacemaker; - Immunization history:: Client reports receiving the 2nd dose of the Covid vaccine. - Social history:: Smoking status: Patient denies any tobacco usage or history of. Vital Signs: 13:44 BP 123 / 60; Pulse 65; Resp 17; Temp 97.9; Pulse Ox 99% ; Weight 106.59 kg; Height 6 jl7 ft. 0 in. (182.88 cm); Pain 10/10; 13:44 Body Mass Index 31.87 (106.59 kg, 182.88 cm) jl7 ED Course: 12:52 Patient arrived in ED. cl3 12:52 Jerome Morales MD is Attending Physician. rn 12:59 Derrick Riddle PA is PHCP. cp 12:59 Jerome Morales MD is Attending Physician. cp 13:01 Jean Carlos Velásquez MD is Private Physician. am2 13:45 Triage completed. jl7 13:45 Arm band placed on right wrist. Patient placed in waiting room, Patient notified of jl7 wait time. 14:55 XRAY Knee LEFT 3 view In Process Unspecified. EDMS 14:55 XRAY Knee RIGHT 3 view In Process Unspecified. EDMS 15:43 Isabel Avila, RN is Primary Nurse. jl7 16:21 Lower Ext Wo Con W/ Mpr In Process Unspecified. EDMS 17:07 Maximo Del Real MD is Referral Physician. cp 17:45 Ramana wrap to left knee. em1 Administered Medications: 15:43 Drug: Hydrocodone-Acetaminophen (7.5 mg-325 mg) 1 tabs Route: PO; jl7 Outcome: 17:07 Discharge ordered by . cp 18:38 Patient left the ED. jl7 Signatures: Dispatcher [employer] EDMS Jerome Morales MD MD rn Martinez, Eric em1 Derrick Riddle PA PA cp Isabel Avila, RN RN jl7 Geovanna De Dios am2 German Welsh cl3
[2021-08-01 19:06] VITALS: BP 123/60; TEMP 97.9; O2SAT 99
== END 2021-08-01 18:38 | disposition home or self-care (01) ==
LOC: ER 12:44
DX: S80.02XA Contusion of left knee, initial encounter (principal); S80.01XA Contusion of right knee, initial encounter; I10 Essential (primary) hypertension; E11.9 Type 2 diabetes mellitus without complications; Z95.0 Presence of cardiac pacemaker; Z88.8 Allergy status to other drugs, medicaments and biological substances
CPT/HCPCS: 73700; 76377; 99283

== ENCOUNTER 2022-07-23 15:37 | Emergency (ER) | payer OTHER ==
--- OUTSIDE RECORDS SUMMARY | 2022-07-23 16:00 | XMS REPORT | Continuity of Care Document ---
:[address] [facility] t Address [address] [place] [address] [address] [place] [address] Care Team Providers Name Role Phone Jean Carlos Velásquez MD Primary Care Physician CHAGO LARSON Attending Clinician Unavailable ALEKSANDR DUONG Attending Clinician Unavailable ELI DENNY Attending Clinician Unavailable Aleksandr Duong DPM Attending Clinician Eli Denny MD Attending Clinician Anuj Pascal MD Attending Clinician [phone] Sonia Mo MD Attending Clinician Gerda Schneider MD Attending Clinician [phone] GERDA SCHNEIDER Attending Clinician Unavailable Aleksandr Duong DPM Attending Clinician Cong Leon MD Attending Clinician Eli Denny MD Attending Clinician ELI DENNY Attending Clinician Unavailable Sunny ROPER, Nia Kelley Attending Clinician Unavailable ALEKSANDR DUONG Attending Clinician Unavailable Peg Staley Attending Clinician [phone] Fela WATTS, Suri Spencer Attending Clinician Sameer WATTS, Herbert Vogt Attending Clinician Christian Sellers MD Attending Clinician Bandar WATTS, Estephania Attending Clinician [phone] Ijeoma WATTS, Jonas Catalan Attending Clinician [phone] [place] Nona Hernandez Attending Clinician Unavailable ABIEL DELGADO Attending Clinician Unavailable Eddie Roper Attending Clinician Jean Carlos Lee Attending Clinician SONIA MO Admitting Clinician Unavailable ELI DENNY Admitting Clinician Unavailable HERBERT SAENZ Admitting Clinician Unavailable ABIEL DELGADO Admitting Clinician Unavailable Eddie Roper Admitting Clinician Jean Carlos Lee Admitting Clinician Payers Payer Name Policy Type Policy Number Effective Date Expiration Date S terry [place] DUAL [id number] COMPLETE SNP PPO-UHC ZZZHMO-MEDICARE - [id number] [facility] CIGNA MEDICARE - [id number] [facility] PCP TOTALCARE SNP [id number] 2016 MEDICARE [id number] 00:00:00 [facility] [id number] 2016 [facility] 00:00:00 Problems Condition Condition Condition Status Onset Resolution Last Treating Co mments Source Name Details Category Date Date Treatment Clinician Date Status Status Disease Active [facility] post post 5-12 College amputation amputation 00:00: of of lesser of lesser 00 Medi perla toe of toe of e left foot left foot Osteomyeli Osteomyeli Disease Recurre [facility] PAD PAD Disease Recurre 2020-[address] [facility] (periphera (periphera nce 0-04 [facility] k[facility] l artery l artery 00:00: Medica l disease) disease) 00 Center Right foot Right foot Disease Active [facility] pain pain 8-27 [facility] 00:00: of 00 Medicin e Status Status Disease Active [facility] post post 08-02 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 00 Medici n great toe great toe e Post-opera Post-opera Disease Active [facility] tive state tive state 08-02 Co llege 00:00: of 00 Medicin e Encounter Encounter Disease Active [facility] for post for post 08-02 Colleg e surgical surgical 00:00: of wound wound 00 Medicin check check e PAD PAD Disease Active [facility] (periphera (periphera 08-02 Co llege l artery l artery 00:00: of disease) disease) 00 Medici n e 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 08-02 Colleg e mellitus mellitus 00:00: of with with 00 Medicin diabetic diabetic e peripheral peripheral angiopathy angiopathy without without gangrene, gangrene, without without long-term long-term current current use of use of insulin insulin Right foot Right foot Disease Active [facility] pain pain 5-18 [facility] [place] Diabetes Diabetes Disease Recurre 2016-[address] [facility] mellitus mellitus nce 2-23 [facility] 00 [place] CHF CHF Disease Recurre 2016-[address] [facility] [address] (congestiv (congestiv nce 2-23 [facility] e heart e heart 00:00: Medical failure) failure) 00 Center Atrial Atrial Disease Recurre 2016-[address] fibrillati fibrillati nce 2-23 [facility] on on 00:00: Medical 00 Center Tachy-chano Tachy-chano Disease Recurre 2016-[address] [facility] y syndrome y syndrome nce 2-23 [facility] kes 00:00: Medical 00 [place] HEIDI (acute HEIDI (acute Disease Recurre 2016-[address] [facility] kidney kidney nce 2-23 [facility] injury) injury) 00:00: Medical 00 [place] Hypertensi Hypertensi Disease Active 2016-[address] on on 2-23 [facility] 00 [place] 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-23 [facility] 00:[facility] 00 [place] Pneumonia Pneumonia Disease Active 2016-[address] [facility] 2-22 [facility] Center PAROXYSMAL PAROXYSMA Diagnosis Active 2016-09-14 Memoria AFIB, L AFIB, 08-28 10:10:00 l BRADYCARDI BRADYCARDI 00:00: He rula A A Active 00 08/28/2016 [facility] CCL/DUAL CCL/DUAL Diagnosis Active 2016-08-31 Memoria PMAKER PMAKER 08-28 15:00:00 l IMPLANT/BS IMPLANT/BS 00:00: He rmann /DX: /DX: 00 I48.0--PA I48.0--PA Active 08/28/2016 [facility] 362.56 362.56 Diagnosis Active 2014-06-04 Me moria EPIRETINAL EPIRETINAL 02-14 10:13:00 l MEMBRANE MEMBRANE 00:00: Pepe n LEFT EYE LEFT EYE 00 Active 02/14/2014 [place] Syncope Syncope Problem Resolve 2016-09-15 M emoria (disorder) (disorder) d 00:18:55 l Resolved [place] Problem 09/15/2016 [facility] Bradycardi Problem Resolve 2016-09-15 Memoria a Bradycardi d 00:18:55 l (disorder) a Pepe n (disorder) Resolved Problem 09/15/2016 [facility] Chest pain Chest Problem Resolve 2016-09-15 Memoria (finding) pain d 00:18:55 l (finding) Tino Resolved Problem 09/15/2016 [facility] Cerebrovas Cerebrova Problem Resolve 2016-09-15 Memoria cular scular d 00:18:55 l accident accident Pepe n (disorder) (disorder) Resolved Problem 09/15/2016 [facility] Dizziness Dizziness Problem Resolve 2016-09-15 Memoria (finding) (finding) d 00:18:55 l Resolved [place] Problem 09/15/2016 [facility] Edema Edema Problem Resolve 2016-09-15 Mem oria (finding) (finding) d 00:18:55 l Resolved [place] Problem 09/15/2016 [facility] Allergies, Adverse Reactions, Alerts Allergy Allergy Status Severity Reaction(s) Onset Inactive Treating Comm ents Source Name Type Date Date Clinician METFORMI Allergy Active [facility] [place] METOPROL Allergy Active [facility] Metformi Propensi Active Pt states [facility] n ty to 06-25 he is not [facility] adverse 00:00: allergic Medical reaction 00 to Center s anything Metoprol Propensi Active Pt states [facility] ty to 18 not [facility] adverse 00:00: allergic Medical reaction 00 to Center s anything Metformi Propensi Active Dominick n ty to 5-18 College adverse 00:00: of reaction 00 Medicin s to e drug Metoprol Propensi Active Shortness Of 2017-02 [facility] ol ty to Breath 1-13 College adverse 00:00: of reaction 00 Medicin s to e drug NO KNOWN Allergy Active [facility] NKFA NKFA Active Lupe Jiménez Family History Family Member Diagnosis Comments Start Date Stop Date Source Natural brother Cancer [facility] Natural brother Diabetes [facility] Natural brother Hypertension [facility] Natural mother Heart disease [facility] Natural sister Hypertension [facility] Social History Social Habit Start Date Stop Date Quantity Comments Source History of tobacco Current smoker [facility] History SDOH [facility] Places Medical Ce nter Lived History SDID [facility]-Med Medical [facility] Alcohol intake 2021-06-04 2021-06-[address] [facility] 00:00[facility]00 00:00:00 non-drinker of Medical Ce nter alcohol (finding) History [facility] 2021-05-31 2021-05-[address] [facility] Housing Unable to 00:00:00 00:00:00 Medical Center Pay History SDOH 2021-05-31 2021-05-[address] [facility] Housing Homeless 00:00:00 00:00:00 Medical Center Last Year History [facility] 2021-05-31 2021-05-[address] [facility] Transport Med 00:00:00 00:00:[address] Tobacco Comment 2020-06-26 2020-06-26 quit [address] [facility] 00:[facility] Medical Center Tobacco use and 2020-06-26 2020-06-[address] [facility] exposure 00:00:00 00:00:00 non-user Medical Center Social History 2014-03-05 2014-03-05 [facility] Enrique carlson 17:12:04 17:12:04 [birth year] [facility] 00:00:00 00:00:00 Medical Center Smoking Status Start Date Stop Date Source Never smoked tobacco [facility] Ex-smoker 2020-06-26 00:00:00 2020-06-26 00:00:00 [facility] Medications Ordered Filled Start Stop Current Ordering Indication Dosage Frequency Signature Comments Components Source Medication Medication Date Date Medication? Clinician (SIG) Name Name glipiZIDE Yes 10mg Take 10 mg [facility] (GLUCOTROL) 1-18 by mouth [facility] 10 MG 09:59: two times of tablet 27 daily. Medicin e Apixaban Yes Take by Dominick (ELIQUIS) 1-18 mouth two Colle ge 2.5 MG TABS 09:59: times of 27 daily. Medicin e amiodarone Yes 200mg Take 200 [facility] (PACERONE) 1-18 mg by [place] 200 MG 09:59: mouth of tablet 27 daily. Medicin e SPIRONOLACT Yes Take by Sab[facility] christie ONE OR 1-18 mouth. College 09:59: of 27 Medicin e glipiZIDE 2021-02 Yes 10mg Take 10 mg [facility] (GLUCOTROL) 0-13 by mouth [facility] 10 MG 14:36: two times of tablet 39 daily. Medicin e Apixaban 2021-02 Yes Take by [facility] (ELIQUIS) 0-13 mouth two Colle ge 2.5 MG TABS 14:36: times of 39 daily. Medicin e amiodarone 2021-02 Yes 200mg Take 200 [facility] (PACERONE) 0-13 mg by [place] 200 MG 14:36: mouth of tablet 39 daily. Medicin e SPIRONOLACT 2021-02 Yes Take by Sabine christie ONE OR 0-13 mouth. College 14:36: of 39 Medicin e glipiZIDE 2021-0 Yes 10mg Take 10 mg [facility] (GLUCOTROL) 8-03 by mouth [facility] 10 MG 15:00: two times of tablet 28 daily. Medicin e Apixaban 2-0 Yes Take by Dominick (ELIQUIS) 8-03 mouth two Colle ge 2.5 MG TABS 15:00: times of 28 daily. Medicin e amiodarone 2-0 Yes 200mg Take 200 [facility] (PACERONE) 8-03 mg by [place] 200 MG 15:00: mouth of tablet 28 daily. Medicin e SPIRONOLACT 2-0 Yes Take by [facility]ine christie ONE OR 8-03 mouth. [place] 15:00: of 28 Medicin e glipiZIDE 2-0 Yes 10mg Take 10 mg [facility] (GLUCOTROL) 6-08 by mouth [facility] 10 MG 09:53: two times of tablet 23 daily. Medicin e Apixaban 2-0 Yes Take by [facility] (ELIQUIS) 6-08 mouth two Colle ge 2.5 MG TABS 09:53: times of 23 daily. Medicin e amiodarone 2-0 Yes 200mg Take 200 [facility] (PACERONE) 6-08 mg by [place] 200 MG 09:53: mouth of tablet 23 daily. Medicin e SPIRONOLACT 2-0 Yes Take by [facility] christie ONE OR 6-08 mouth. [place] 09:53: of 23 Medicin e glipiZIDE 2-0 Yes 10mg Take 10 mg [facility] (GLUCOTROL) 5-05 by mouth [facility] 10 MG 13:16: two times of tablet 31 daily. Medicin e Apixaban 2-0 Yes Take by [facility] (ELIQUIS) 5-05 mouth two Colle ge 2.5 MG TABS 13:16: times of 31 daily. Medicin e amiodarone 2-0 Yes 200mg Take 200 [facility] (PACERONE) 5-05 mg by [place] 200 MG 13:16: mouth of tablet 31 daily. Medicin e SPIRONOLACT 2-0 Yes Take by [facility] christie ONE OR 5-05 mouth. [place] 13:16: of 31 Medicin e doxycycline 2022-0 2022- No [id number] 100mg Take 1 [facility] (ADOXA) 100 5-04 05-15 Tablet by Co llege MG tablet 00:00: 04:59 mouth two of 00 :00 times Medicin daily for e 10 days. mupirocin 2022-0 2022- No 1g QD Apply [address] (BACTROBAN) 06-06- topically Yuliya kes 2 % 00:00: 23:59 daily for Medical ointment 00 :00 7 days. [place] mupirocin 2021- No 1g QD Apply [address] (BACTROBAN) 06-06- topically Yuliya kes 2 % 00:00: 23:59 daily for Medical ointment 00 :00 7 days. [place] mupirocin 2021- No 1g QD Apply [address] (BACTROBAN) 06-06- topically Yuliya kes 2 % 00:00: 23:59 daily for Medical ointment 00 :00 7 days. [place] mupirocin 2021- No 1g QD Apply [address] (BACTROBAN) 06-06- topically Yuliya kes 2 % 00:00: 23:59 daily for Medical ointment 00 :00 7 days. [place] amiodarone Yes 200mg QD Take [address] (PACERONE) 4-28 mg by [facility] 200 MG 17:01: mouth Medical tablet 40 daily. [place] spironolact Yes 25mg Q.5D Take [address] [facility] one 4-28 by mouth 2 [facility] (ALDACTONE) 17:01: (two) Medic al 25 MG 40 times Center tablet daily. multivitami Yes 1{capsu QD Take [address] n capsule 4-28 le} capsule by Luke s 17:01: mouth Medical 40 daily. [place] sertraline Yes 25mg QD Take [address] (ZOLOFT) 25 4-28 by mouth Luke s MG tablet 17:01: daily. Medica l 40 [place] amiodarone Yes 200mg QD Take [address] (PACERONE) 4-28 mg by [facility] 200 MG 17:01: mouth Medical tablet 40 daily. [place] spironolact Yes 25mg Q.5D Take [address] [facility] one 4-28 by mouth 2 [facility] (ALDACTONE) 17:01: (two) Medic al 25 MG 40 times Center tablet daily. multivitami Yes 1{capsu QD Take [address] n capsule 4-28 le} capsule by Luke s 17:01: mouth Medical 40 daily. [place] sertraline 0 Yes 25mg QD Take [address] (ZOLOFT) 25 4-28 by mouth Luke s MG tablet 17:01: daily. Medica l 40 [place] amiodarone 0 Yes 200mg QD Take [address] (PACERONE) 4-28 mg by [facility] 200 MG 17:01: mouth Medical tablet 40 daily. [place] spironolact 0 Yes 25mg Q.5D Take [address] [facility] one 4-28 by mouth 2 [facility] (ALDACTONE) 17:01: (two) Medic al 25 MG 40 times Center tablet daily. multivitami Yes 1{capsu QD Take [address] n capsule 4-28 le} capsule by Luke s 17:01: mouth Medical 40 daily. [place] sertraline 0 Yes 25mg QD Take [address] (ZOLOFT) 25 4-28 by mouth Luke s MG tablet 17:01: daily. Medica l 40 [place] amiodarone 0 Yes 200mg QD Take [address] (PACERONE) 4-28 mg by [facility] 200 MG 17:01: mouth Medical tablet 40 daily. [place] spironolact 0 Yes 25mg Q.5D Take [address] [facility] one 4-28 by mouth 2 [facility] (ALDACTONE) 17:01: (two) Medic al 25 MG 40 times Center tablet daily. multivitami 0 Yes 1{capsu QD Take [address] n capsule 4-28 le} capsule by Luke s 17:01: mouth Medical 40 daily. [place] sertraline 2021-0 Yes 25mg QD Take [address] (ZOLOFT) 25 4-28 by mouth Luke s MG tablet 17:01: daily. Medica l 40 [place] amiodarone 2021-0 Yes 200mg QD Take [address] (PACERONE) 4-28 mg by [facility] 200 MG 17:01: mouth Medical tablet 40 daily. [place] spironolact 2021-0 Yes 25mg Q.5D Take [address] [facility] one 4-28 by mouth 2 [facility] (ALDACTONE) 17:01: (two) Medic al 25 MG 40 times Center tablet daily. multivitami Yes 1{capsu QD Take [address] n capsule 4-28 le} capsule by Luke s 17:01: mouth Medical 40 daily. [place] sertraline Yes 25mg QD Take [address] (ZOLOFT) 25 4-28 by mouth Luke s MG tablet 17:01: daily. Medica l 40 [place] amiodarone Yes 200mg QD Take [address] (PACERONE) 4-28 mg by [facility] 200 MG 17:01: mouth Medical tablet 40 daily. [place] spironolact Yes 25mg Q.5D Take [address] [facility] one 4-28 by mouth 2 [facility] (ALDACTONE) 17:01: (two) Medic al 25 MG 40 times Center tablet daily. multivitami Yes 1{capsu QD Take [address] n capsule 4-28 le} capsule by Luke s 17:01: mouth Medical 40 daily. [place] sertraline Yes 25mg QD Take [address] (ZOLOFT) 25 4-28 by mouth Luke s MG tablet 17:01: daily. Medica l 40 [place] glipiZIDE 2021- No 5mg QD Take [address] (GLUCOTROL) -05 06-28 by mouth Cl es 10 MG 07:57: 00:00 daily . Medical tablet 25 :00 [place] glipiZIDE 2021- No 5mg QD Take [address] (GLUCOTROL) -05 06-28 by mouth Cl es 10 MG 07:57: 00:00 daily . Medical tablet 25 :00 [place] glipiZIDE 2021-0 2021- No 5mg QD Take [address] (GLUCOTROL) -05 06-28 by mouth Cl es 10 MG 07:57: 00:00 daily . Medical tablet 25 :00 [place] glipiZIDE 2021-0 2- No 5mg QD Take [address] (GLUCOTROL) -05 06-28 by mouth Cl es 10 MG 07:57: 00:00 daily . Medical tablet 25 :00 Center HYDROcodone 2022-0 Yes 1{tbl} Take [address] -acetaminop 4-28 tablet by Cl es hen (TelanetixPR 00:00: mouth Medica l 5-325) 00 every 6 Center 5-325 mg (six) per tablet hours as needed for Pain. Max Daily Amount: 4 tablets HYDROcodone 2022-0 Yes 1{tbl} Take [address] -acetaminop 4-28 tablet by Cl es hen (TACOMA 00:00: mouth Medica l 5-325) 00 every 6 Center 5-325 mg (six) per tablet hours as needed for Pain. Max Daily Amount: 4 tablets HYDROcodone 2022-0 Yes 1{tbl} Take [address] -acetaminop 4-28 tablet by Cl es hen (TACOMA 00:00: mouth Medica l 5-325) 00 every 6 Center 5-325 mg (six) per tablet hours as needed for Pain. Max Daily Amount: 4 tablets HYDROcodone 2021-0 Yes 1{tbl} Take [address] -acetaminop 4-28 tablet by Cl es hen (TelanetixPR 00:00: mouth Medica l 5-325) 00 every 6 Center 5-325 mg (six) per tablet hours as needed for Pain. Max Daily Amount: 4 tablets HYDROcodone 2021-0 Yes 1{tbl} Take [address] -acetaminop 4-28 tablet by Cl es hen (TelanetixPR 00:00: mouth Medica l 5-325) 00 every 6 Center 5-325 mg (six) per tablet hours as needed for Pain. Max Daily Amount: 4 tablets HYDROcodone 2-0 Yes 1{tbl} Take [address] -acetaminop 4-28 tablet by Cl es hen (TelanetixPR 00:00: mouth Medica l 5-325) 00 every 6 Center 5-325 mg (six) per tablet hours as needed for Pain. Max Daily Amount: 4 tablets aspirin EC 2-0 2022- No 81mg Take 81 mg [facility] 81 MG -05 06- by mouth. College tablet 00:00: 04:59 of 00 :00 Medicin e aspirin EC 2021-0 3- No 81mg Take 81 mg [facility] 81 MG -05 06-29 by mouth. College tablet 00:00: 04:59 of 00 :00 Medicin e aspirin EC 2021-0 2023- No 81mg Take 81 mg [facility] 81 MG -05 06- by mouth. College tablet 00:00: 04:59 of 00 :00 Medicin e aspirin EC 2021-0 2023- No 81mg Take 81 mg [facility] 81 MG -05 06- by mouth. College tablet 00:00: 04:59 of 00 :00 Medicin e aspirin EC 2021-0 2023- No 81mg Take 81 mg [facility] 81 MG -05 06- by mouth. College tablet 00:00: 04:59 of 00 :00 Medicin e aspirin 81 2021-0 2023- No 81mg QD Take [address] [facility] MG chewable -05 06- tablet (81 L ukes tablet 00:00: 23:59 mg total) Medic al 00 :00 by mouth Center daily. aspirin 81 2021-0 2023- No 81mg QD Take [address] [facility] MG chewable -05 06- tablet (81 L ukes tablet 00:00: 23:59 mg total) Medic al 00 :00 by mouth Center daily. aspirin 81 2021-0 2023- No 81mg QD Take [address] [facility] MG chewable -05 06- tablet (81 L ukes tablet 00:00: 23:59 mg total) Medic al 00 :00 by mouth Center daily. aspirin 81 2021-0 2023- No 81mg QD Take [address] [facility] MG chewable -05 06- tablet (81 L ukes tablet 00:00: 23:59 mg total) Medic al 00 :00 by mouth Center daily. aspirin 81 2021-0 2023- No 81mg QD Take [address] [facility] MG chewable -05 06- tablet (81 L ukes tablet 00:00: 23:59 mg total) Medic al 00 :00 by mouth Center daily. aspirin 81 2021-0 2023- No 81mg QD Take [address] [facility] MG chewable -05 06- tablet (81 L ukes tablet 00:00: 23:59 mg total) Medic al 00 :00 by mouth Center daily. amoxicillin 2021-0 2021- No 500mg Q.5D Take [address] (AMOXIL) - 05-05 tablet [facility] 500 MG 00:00: 23:59 (500 mg Medical tablet 00 :00 total) by Center mouth 2 (two) times daily for 7 days. amoxicillin 2021- No 500mg Q.5D Take [address] (AMOXIL) - 05-05 tablet [facility] 500 MG 00:00: 23:59 (500 mg Medical tablet 00 :00 total) by Center mouth 2 (two) times daily for 7 days. amoxicillin 2021- No 500mg Q.5D Take [address] (AMOXIL) - 05-05 tablet [facility] 500 MG 00:00: 23:59 (500 mg Medical tablet 00 :00 total) by Center mouth 2 (two) times daily for 7 days. amoxicillin 2021- No 500mg Q.5D Take [address] (AMOXIL) - 05-05 tablet [facility] 500 MG 00:00: 23:59 (500 mg Medical tablet 00 :00 total) by Center mouth 2 (two) times daily for 7 days. glipiZIDE 2020-02 Yes 10mg Take 10 mg [facility] (GLUCOTROL) 0-20 by mouth [facility] 10 MG 13:27: two times of tablet 32 daily. Medicin e Apixaban 2020-02 Yes Take by [facility] (ELIQUIS) 0-20 mouth two Colle ge 2.5 MG TABS 13:27: times of 32 daily. Medicin e amiodarone 2020-02 Yes 200mg Take 200 [facility] (PACERONE) 0-20 mg by [place] 200 MG 13:27: mouth of tablet 32 daily. Medicin e SPIRONOLACT 2020-02 Yes Take by [facility] ONE OR 0-20 mouth. [place] 13:27: of 32 Medicin e docusate 2020-02 No 100mg Q.5D Take [address] sodium 0-04 10-04 mg by [facility] (COLACE) 08:37: 00:00 mouth 2 Medic al 100 MG 27 :00 (two) Center capsule times daily. glipiZIDE Yes 10mg Take 10 mg [facility] (GLUCOTROL) 9-22 by mouth [facility] 10 MG 09:03: two times of tablet 58 daily. Medicin e Apixaban Yes Take by [facility] (ELIQUIS) 9-22 mouth two Colle ge 2.5 MG TABS 09:03: times of 58 daily. Medicin e amiodarone 2021-0 Yes 200mg Take 200 [facility] (PACERONE) 9-22 mg by [place] 200 MG 09:03: mouth of tablet 58 daily. Medicin e SPIRONOLACT 1-0 Yes Take by Sabine christie ONE OR 10-30 mouth. [place] 09:03: of 58 Medicin e glipiZIDE 1-0 Yes 10mg Take 10 mg [facility] (GLUCOTROL) 9-22 by mouth Ste[facility] 10 MG 09:03: two times of tablet 58 daily. Medicin e Apixaban 1-0 Yes Take by [facility] (ELIQUIS) - mouth two Colle ge 2.5 MG TABS 09:03: times of 58 daily. Medicin e amiodarone 1-0 Yes 200mg Take 200 [facility] (PACERONE) 9-22 mg by [place] 200 MG 09:03: mouth of tablet 58 daily. Medicin e SPIRONOLACT 1-0 Yes Take by Sabine christie ONE OR 10-30 mouth. [place] 09:03: of 58 Medicin e glipiZIDE 1-0 Yes 10mg Take 10 mg [facility] (GLUCOTROL) 9-22 by mouth [facility] 10 MG 09:03: two times of tablet 58 daily. Medicin e Apixaban 1-0 Yes Take by [facility] (ELIQUIS) - mouth two Colle ge 2.5 MG TABS 09:03: times of 58 daily. Medicin e amiodarone 1-0 Yes 200mg Take 200 [facility] (PACERONE) 9-22 mg by [place] 200 MG 09:03: mouth of tablet 58 daily. Medicin e SPIRONOLACT 1-0 Yes Take by Sabine christie ONE OR 10-30 mouth. [place] 09:03: of 58 Medicin e glipiZIDE 1-0 Yes 10mg Take 10 mg [facility] (GLUCOTROL) 9-22 by mouth [facility] 10 MG 09:03: two times of tablet 58 daily. Medicin e Apixaban 1-0 Yes Take by [facility] (ELIQUIS) - mouth two Colle ge 2.5 MG TABS 09:03: times of 58 daily. Medicin e amiodarone 2021-0 Yes 200mg Take 200 [facility] (PACERONE) 9-22 mg by [place] 200 MG 09:03: mouth of tablet 58 daily. Medicin e SPIRONOLACT Yes Take by Sabine christie ONE OR 10-30 mouth. [place] 09:03: of 58 Medicin e Dabigatran Yes Take by [facility] or Etexilate 10-03 mouth. [place] Mesylate 13:36: of (PRADAXA) 34 Medicin 150 MG CAPS e glipiZIDE 0 Yes 10mg Take 10 mg [facility] (GLUCOTROL) 10-03 by mouth [facility] 10 MG 13:36: two times of tablet 34 daily. Medicin e valsartan Yes 320mg Take 320 [facility]ine christie (DIOVAN) 8- mg by [place] 320 MG 13:36: mouth of tablet 34 daily. Medicin e furosemide Yes 40mg Take 40 mg [facility] (LASIX) 40 10-03 by mouth Colle ge MG tablet 13:36: daily. of 34 Medicin e Apixaban Yes Take by [facility] (ELIQUIS) 10-03 mouth two Colle ge 2.5 MG TABS 13:36: times of 34 daily. Medicin e amiodarone Yes 200mg Take 200 [facility] (PACERONE) 8-26 mg by [place] 200 MG 13:36: mouth of tablet 34 daily. Medicin e SPIRONOLACT Yes Take by Sabine christie ONE OR 10-03 mouth. [place] 13:36: of 34 Medicin e collagenase Yes [id number] Apply to [facility] 250 UNIT/GM 10-03 [facility] ointment 00:00: wound on of great [place] Medicin toe amp e site Wound measuremen ts 1.0 cm X 1.0 Cm gabapentin Yes [id number] 100mg Take 1 [facility] (NEURONTIN) 10-03 9107 capsule by Co [facility]lege 100 MG 00:00: mouth 3 of capsule 00 times Medicin daily. e doxycycline Yes [id number] 100mg Take 1 [facility] (ADOXA) 100 10-03 Tablet by Col lege MG tablet 00:00: mouth two of 00 times Medicin daily. e collagenase 2021-0 Yes [id number] Apply to [facility] 250 UNIT/GM 8-26 [facility] ointment 00:00: wound on of 00 [place] Medicin toe amp e site Wound measuremen ts 1.0 cm X 1.0 Cm collagenase 2020-0 Yes [id number] Apply to [facility] 250 UNIT/GM 8-26 [facility] Center ointment 00:00: wound on of 00 great big Medicin toe amp e site Wound measuremen ts 1.0 cm X 1.0 Cm gabapentin 2020-0 Yes [id number] 100mg Take 1 [facility] (NEURONTIN) 8-26 9107 capsule by Co llege 100 MG 00:00: mouth 3 of capsule 00 times Medicin daily. e doxycycline 2020-0 Yes [id number] 100mg Take 1 [facility] (ADOXA) 100 8-26 Tablet by Col lege MG tablet 00:00: mouth two of 00 times Medicin daily. e gabapentin 2020-0 Yes [id number] 100mg Take 1 [facility] (NEURONTIN) 8- 9107 capsule by [facility]lege 100 MG 00:00: mouth 3 of capsule 00 times Medicin daily. e collagenase 2020-0 Yes [id number] Apply to [facility] 250 UNIT/GM 8-26 [facility] ointment 00:00: wound on of great big Medicin toe amp e site Wound measuremen ts 1.0 cm X 1.0 Cm doxycycline 2020-0 Yes [id number] 100mg Take 1 [facility] (ADOXA) 100 8-26 Tablet by Col lege MG tablet 00:00: mouth two of 00 times Medicin daily. e gabapentin 2020-0 Yes [id number] 100mg Take 1 [facility] (NEURONTIN) 8-26 9107 capsule by [facility]lege 100 MG 00:00: mouth 3 of capsule 00 times Medicin daily. e doxycycline 2020-0 Yes [id number] 100mg Take 1 [facility] (ADOXA) 100 8-26 Tablet by Col lege MG tablet 00:00: mouth two of 00 times Medicin daily. e collagenase 2020-0 Yes [id number] Apply to [facility] 250 UNIT/GM 8-26 [facility] ointment 00:00: wound on of great big Medicin toe amp e site Wound measuremen ts 1.0 cm X 1.0 Cm gabapentin 2020-0 Yes [id number] 100mg Take 1 [facility] (NEURONTIN) 8 9107 capsule by [facility]lege 100 MG 00:00: mouth 3 of capsule 00 times Medicin daily. e doxycycline 2020-0 Yes [id number] 100mg Take 1 [facility] (ADOXA) 100 8 Tablet by Col lege MG tablet 00:00: mouth two of 00 times Medicin daily. e collagenase 2020-0 Yes [id number] Apply to [facility] 250 UNIT/GM 8-26 [facility] ointment 00:00: wound on of 00 great big Medicin toe amp e site Wound measuremen ts 1.0 cm X 1.0 Cm gabapentin 2020-0 Yes [id number] 100mg Take 1 [facility] (NEURONTIN) 8 9107 capsule by [facility]lege 100 MG 00:00: mouth 3 of capsule 00 times Medicin daily. e collagenase 2020-0 Yes [id number] Apply to [facility] 250 UNIT/GM 8-26 [facility] ointment 00:00: wound on of 00 great big Medicin toe amp e site Wound measuremen ts 1.0 cm X 1.0 Cm gabapentin 2020-0 Yes [id number] 100mg Take 1 [facility] (NEURONTIN) 8 9107 capsule by [facility]lege 100 MG 00:00: mouth 3 of capsule 00 times Medicin daily. e collagenase 2020-0 Yes [id number] Apply to [facility] 250 UNIT/GM 8-26 [facility] ointment 00:00: wound on of 00 great big Medicin toe amp e site Wound measuremen ts 1.0 cm X 1.0 Cm gabapentin 2020-0 Yes [id number] 100mg Take 1 [facility] (NEURONTIN) 8 9107 capsule by [facility]lege 100 MG 00:00: mouth 3 of capsule 00 times Medicin daily. e collagenase 2020-0 Yes [id number] Apply to [facility] 250 UNIT/GM 826 [facility] ointment 00:00: wound on of 00 great big Medicin toe amp e site Wound measuremen ts 1.0 cm X 1.0 Cm gabapentin 202-0 Yes [id number] 100mg Take 1 [facility] (NEURONTIN) 8 9107 capsule by [facility]lege 100 MG 00:00: mouth 3 of capsule 00 times Medicin daily. e collagenase 0 Yes [id number] Apply to [facility] 250 UNIT/GM 8 [facility] ointment 00:00: wound on of 00 great big Medicin toe amp e site Wound measuremen ts 1.0 cm X 1.0 Cm gabapentin 0 Yes [id number] 100mg Take 1 [facility] (NEURONTIN) 10-03 9107 capsule by [facility]lege 100 MG 00:00: mouth 3 of capsule 00 times Medicin daily. e collagenase Yes [id number] Apply to [facility] 250 UNIT/GM 10-03 [facility] ointment 00:00: wound on of 00 great big Medicin toe amp e site Wound measuremen ts 1.0 cm X 1.0 Cm gabapentin Yes [id number] 100mg Take 1 [facility] (NEURONTIN) 10-03 91 capsule by Co [facility]lege 100 MG 00:00: mouth 3 of capsule 00 times Medicin daily. e doxycycline Yes [id number] 100mg Take 1 [facility] (ADOXA) 100 10-03 Tablet by Col [facility]ge MG tablet 00:00: mouth two of 00 times Medicin daily. e Dabigatran Yes Take by [facility] or Etexilate 09-04 mouth. [place] Mesylate 10:40: of (PRADAXA) 39 Medicin 150 MG CAPS e glipiZIDE Yes 10mg Take 10 mg [facility] (GLUCOTROL) 09-04 by mouth Ste[facility] 10 MG 10:40: two times of tablet 39 daily. Medicin e valsartan Yes 320mg Take 320 [facility] (DIOVAN) 7-28 mg by [place] 320 MG 10:40: mouth of tablet 39 daily. Medicin e furosemide Yes 40mg Take 40 mg [facility] (LASIX) 40 7- by mouth Colle ge MG tablet 10:40: daily. of 39 Medicin e Apixaban Yes Take by [facility] (ELIQUIS) 7- mouth two Colle ge 2.5 MG TABS 10:40: times of 39 daily. Medicin e amiodarone Yes 200mg Take 200 [facility] (PACERONE) 7-28 mg by [place] 200 MG 10:40: mouth of tablet 39 daily. Medicin e SPIRONOLACT 2020-0 Yes Take by [facility] ONE OR 7-28 mouth. [place] 10:40: of 39 Medicin e Dabigatran 2020-0 Yes Take by [facility] or Etexilate 7-28 mouth. [place] Mesylate 10:40: of (PRADAXA) 39 Medicin 150 MG CAPS e glipiZIDE 0 Yes 10mg Take 10 mg [facility] (GLUCOTROL) 7-28 by mouth Stew ege 10 MG 10:40: two times of tablet 39 daily. Medicin e valsartan 0 Yes 320mg Take 320 [facility] (DIOVAN) 7-28 mg by [place] 320 MG 10:40: mouth of tablet 39 daily. Medicin e furosemide 2020-0 Yes 40mg Take 40 mg [facility] (LASIX) 40 7-28 by mouth Colle ge MG tablet 10:40: daily. of 39 Medicin e Apixaban 0 Yes Take by [facility] (ELIQUIS) 7- mouth two Colle ge 2.5 MG TABS 10:40: times of 39 daily. Medicin e amiodarone 0 Yes 200mg Take 200 [facility] (PACERONE) 7-28 mg by [place] 200 MG 10:40: mouth of tablet 39 daily. Medicin e SPIRONOLACT 0 Yes Take by [facility] ONE OR 7-28 mouth. [place] 10:40: of 39 Medicin e Dabigatran 0 Yes Take by [facility] or Etexilate 7-14 mouth. [place] Mesylate 10:25: of (PRADAXA) 59 Medicin 150 MG CAPS e glipiZIDE 2020-0 Yes 10mg Take 10 mg [facility] (GLUCOTROL) 7-14 by mouth Stew ege 10 MG 10:25: two times of tablet 59 daily. Medicin e valsartan 2020-0 Yes 320mg Take 320 [facility] (DIOVAN) 7-14 mg by [place] 320 MG 10:25: mouth of tablet 59 daily. Medicin e furosemide 2020-0 Yes 40mg Take 40 mg [facility] (LASIX) 40 7-14 by mouth Colle ge MG tablet 10:25: daily. of 59 Medicin e Apixaban 2020-0 Yes Take by [facility] (ELIQUIS) 08-21 mouth two Colle ge 2.5 MG TABS 10:25: times of 59 daily. Medicin e amiodarone 2020-0 Yes 200mg Take 200 [facility] (PACERONE) 7-14 mg by [facility] 200 MG 10:25: mouth of tablet 59 daily. Medicin e SPIRONOLACT 2020-0 Yes Take by [facility] ONE OR - mouth. College 10:25: of 59 Medicin e doxycycline 2020-0 Yes [id number] 100mg Take 1 [facility] (ADOXA) 100 08-21 [id number] Tablet by C ollege MG tablet 00:00: mouth two of 00 times Medicin daily. e mupirocin 2020-0 Yes [id number] Apply to [facility] (BACTROBAN) 08-21 [id number] wound site College 2 % 00:00: daily of ointment 00 Medicin e doxycycline 2020-0 Yes [id number] 100mg Take 1 [facility] (ADOXA) 100 08-21 [id number] Tablet by C [facility]lege MG tablet 00:00: mouth two of 00 times Medicin daily. e mupirocin 2020-0 Yes [id number] Apply to [facility] (BACTROBAN) 08-21 [id number] wound site College 2 % 00:00: daily of ointment 00 Medicin e mupirocin 2020-0 Yes [id number] Apply to [facility] (BACTROBAN) 08-21 [id number] wound site College 2 % 00:00: daily of ointment 00 Medicin e mupirocin 1-0 Yes [id number] Apply to [facility] (BACTROBAN) 08-21 [id number] wound site College 2 % 00:00: daily of ointment 00 Medicin e mupirocin 1-0 Yes [id number] Apply to [facility] (BACTROBAN) 08-21 [id number] wound site College 2 % 00:00: daily of ointment 00 Medicin e mupirocin 1-0 Yes [id number] Apply to [facility] (BACTROBAN) 08-21 [id number] wound site College 2 % 00:00: daily of ointment 00 Medicin e mupirocin 2021-0 Yes [id number] Apply to [facility] (BACTROBAN) 08-21 [id number] wound site College 2 % 00:00: daily of ointment 00 Medicin e mupirocin 0 Yes [id number] Apply to [facility] (BACTROBAN) 08-21 [id number] wound site College 2 % 00:00: daily of ointment 00 Medicin e mupirocin 2020-0 Yes [id number] Apply to [facility] (BACTROBAN) 08-21 [id number] wound site College 2 % 00:00: daily of ointment 00 Medicin e mupirocin 2020-0 Yes [id number] Apply to [facility] (BACTROBAN) 08-21 [id number] wound site College 2 % 00:00: daily of ointment 00 Medicin e mupirocin 2020-0 Yes [id number] Apply to [facility] (BACTROBAN) 08-21 [id number] wound site College 2 % 00:00: daily of ointment 00 Medicin e mupirocin 2020-0 Yes [id number] Apply to [facility] (BACTROBAN) 08-21 [id number] wound site College 2 % 00:00: daily of ointment 00 Medicin e mupirocin 0 Yes [id number] Apply to [facility] (BACTROBAN) 08-21 [id number] wound site College 2 % 00:00: daily of ointment 00 Medicin e doxycycline 2020- No [id number] 100mg Take 1 [facility] (ADOXA) 100 08-21 [id number] Tablet by [place] MG tablet 00:00: 00:00 mouth two of 00 :00 times Medicin daily. e Dabigatran Yes Take by [facility] or Etexilate 6-30 mouth. [place] Mesylate 09:35: of (PRADAXA) 59 Medicin 150 MG CAPS e glipiZIDE Yes 10mg Take 10 mg [facility] (GLUCOTROL) 6-30 by mouth Stew [facility] 10 MG 09:35: two times of tablet 59 daily. Medicin e valsartan Yes 320mg Take 320 [facility] (DIOVAN) 6-30 mg by [place] 320 MG 09:35: mouth of tablet 59 daily. Medicin e furosemide Yes 40mg Take 40 mg [facility] (LASIX) 40 6-30 by mouth Colle ge MG tablet 09:35: daily. of 59 Medicin e Apixaban 2020-0 Yes Take by [facility] (ELIQUIS) 6-30 mouth two Colle ge 2.5 MG TABS 09:35: times of 59 daily. Medicin e amiodarone 2020-0 Yes 200mg Take 200 [facility] (PACERONE) 6-30 mg by [place] 200 MG 09:35: mouth of tablet 59 daily. Medicin e SPIRONOLACT 2020-0 Yes Take by [facility] ONE OR 6-30 mouth. [place] 09:35: of 59 Medicin e Dabigatran 2020-0 Yes Take by [facility] or Etexilate 6-17 mouth. [place] Mesylate 10:35: of (PRADAXA) 15 Medicin 150 MG CAPS e glipiZIDE 2020-0 Yes 10mg Take 10 mg [facility] (GLUCOTROL) 6-17 by mouth Stew [facility] 10 MG 10:35: two times of tablet 15 daily. Medicin e valsartan 0 Yes 320mg Take 320 [facility] (DIOVAN) 6-17 mg by [place] 320 MG 10:35: mouth of tablet 15 daily. Medicin e furosemide 0 Yes 40mg Take 40 mg [facility] (LASIX) 40 6-17 by mouth Colle ge MG tablet 10:35: daily. of 15 Medicin e Apixaban 0 Yes Take by [facility] (ELIQUIS) 6-17 mouth two Colle ge 2.5 MG TABS 10:35: times of 15 daily. Medicin e amiodarone 0 Yes 200mg Take 200 [facility] (PACERONE) 6-17 mg by [place] 200 MG 10:35: mouth of tablet 15 daily. Medicin e SPIRONOLACT 0 Yes Take by [facility] ONE OR 6-17 mouth. [place] 10:35: of 15 Medicin e Dabigatran 2020-0 Yes Take by [facility] or Etexilate 6-17 mouth. [place] Mesylate 10:35: of (PRADAXA) 15 Medicin 150 MG CAPS e glipiZIDE 2020-0 Yes 10mg Take 10 mg [facility] (GLUCOTROL) 6-17 by mouth Stew e[facility] 10 MG 10:35: two times of tablet 15 daily. Medicin e valsartan 2021-0 Yes 320mg Take 320 [facility] (DIOVAN) 6-17 mg by [place] 320 MG 10:35: mouth of tablet 15 daily. Medicin e furosemide Yes 40mg Take 40 mg [facility] (LASIX) 40 6-17 by mouth Colle ge MG tablet 10:35: daily. of 15 Medicin e Apixaban Yes Take by [facility] (ELIQUIS) 6-17 mouth two Colle ge 2.5 MG TABS 10:35: times of 15 daily. Medicin e amiodarone Yes 200mg Take 200 [facility] (PACERONE) 6-17 mg by [place] 200 MG 10:35: mouth of tablet 15 daily. Medicin e SPIRONOLACT Yes Take by [facility] ONE OR 6-17 mouth. [place] 10:35: of 15 Medicin e metformin 2020- No 850mg Take 850 [facility] (GLUCOPHAGE 07-17 06-09 mg by Abhay muir ) 850 MG 09:37: 00:00 mouth 2 of tablet 14 :00 times Medicin daily e (with meals). metformin 2020- No 500mg Take 500 [facility] (GLUCOPHAGE 07-17 06-09 mg by Abhay muir ) 500 MG 09:37: 00:00 mouth 2 of tablet 11 :00 times Medicin daily e (with meals). amoxicillin Yes 1{tbl} Take 1 [facility] -clavulanat - Tablet by Col [facility]ge e 00:00: mouth [...] capsule 00 times Medicin daily. e gabapentin Yes 100mg Take 1 [facility] (NEURONTIN) 6- capsule by [facility]lege 100 MG 00:00: mouth 3 of capsule 00 times Medicin daily. e gabapentin Yes 100mg Take 1 [facility] [...] e gabapentin 2020- No 100mg Take 1 [facility] (NEURONTIN) 07-17 capsule by C [facility] 100 MG 00:00: 00:00 mouth 3 of capsule 00 :00 times Medicin daily. e amoxicillin 2020-0 2021- No 1{tbl} Take 1 [facility] -clavulanat 07-17 Tablet by Co llege e 00:00: 00:00 mouth two of (AUGMENTIN) 00 :00 times Medicin 500-125 MG daily. e per tablet mupirocin 2020- No Apply to [facility] (BACTROBAN) 07-17 affected Col [facility]ge 2 % 00:00: 00:00 area daily of ointment 00 :00 Medicin e glipiZIDE Yes 5mg QD Take [address] [facility] (GLUCOTROL) 5-28 by mouth [facility] 10 MG 16:36: daily . Medical tablet 41 [place] amiodarone Yes 200mg QD Take [address] [facility] [address] [facility] (PACERONE) 5-28 mg by [facility] 200 MG 16:36: mouth Medical tablet 41 daily. Center spironolact Yes 25mg Q.5D Take [address] [facility] one 5-28 by mouth 2 [facility] (ALDACTONE) 16:36: (two) Medic al 25 MG 41 times Center tablet daily. docusate Yes 100mg Q.5D Take [address] [facility] sodium 5-28 mg by [facility] (COLACE) 16:36: mouth 2 Medica l 100 MG 41 (two) Center capsule times daily. multivitami Yes 1{capsu QD Take [address] n capsule 5-28 le} capsule by Damon s 16:36: mouth Medical 41 daily. Center [...] 1{tbl} Take [address] ate 07-05- tablet by [facility] (SENOKOT S) 00:00: 23:59 mouth Medi park 8.6-50 mg 00 :00 every Center per tablet night as needed for Constipati on for up to 30 days. senna-docus 2020- No 1{tbl} Take [address] ate 07-05- tablet by [facility] (SENOKOT S) 00:00: 23:59 mouth Medi park 8.6-50 mg 00 :00 every Center per tablet night as needed for Constipati on for up to 30 days. amoxicillin 2020- No 1{tbl} Take [address] -clavulanat 07-05- tablet by Yuliya kes e 00:00: 23:59 mouth Medical (AUGMENTIN) 00 :00 every 12 Cent er 875-125 mg (twelve) per tablet hours for 7 days. doxycycline 2020- No 100mg Take [address] [facility] [address] [facility] (MONODOX) 07-05 capsule [facility] 100 MG 00:00: 23:59 (100 mg Medical capsule 00 :00 total) by Center mouth every 12 (twelve) hours for 7 days. amoxicillin 2020- No 1{tbl} Take [address] -clavulanat 07-05- tablet by Yuliya kes e 00:00: 23:59 mouth Medical (AUGMENTIN) 00 :00 every 12 Cent er 875-125 mg (twelve) per tablet hours for 7 days. doxycycline 2020- No 100mg Take [address] [facility] [address] [facility] (MONODOX) 07-05- capsule [facility] 100 MG 00:00: 23:59 (100 mg Medical capsule 00 :00 total) by Center mouth every 12 (twelve) hours for 7 days. vancomycin 2020- No 1250mg Inject [facility] (VANCOCIN) 06-18 1,250 mg [facility] injection 00:00: 00:00 intravenou M edical 1000 mg 00 :00 sly . Center vial vancomycin 2020-2020- No 1250mg Inject [facility] (VANCOCIN) 06-18 05-28 1,250 mg [facility] injection 00:00: 00:00 intravenou M edical 1000 mg 00 :00 sly . Center vial Eliquis 2.5 Yes 2.5mg Q.5D Take 2.[address] MG tablet 5-09 mg by [facility] 00:[facility]: mouth 2 Medical 00 (two) Center times daily . Eliquis 2.5 2020-0 2021- No 2.5mg Q.5D Take 2.[address] [facility] MG tablet 5- 04-28 mg by [facility] 00:00: 00:00 mouth 2 Medical 00 :00 (two) Center times daily . Eliquis 2.5 2020-0 2021- No 2.5mg Q.5D Take 2.[address] [facility] MG tablet 5- 04-28 mg by [facility] 00:00: 00:00 mouth 2 Medical 00 :00 (two) Center times daily . Eliquis 2.5 2020-0 2021- No 2.5mg Q.5D Take 2.[address] [facility] MG tablet 5- 04-28 mg by [facility] 00:00: 00:00 mouth 2 Medical 00 :00 (two) Center times daily . Eliquis 2.5 2020-0 2021- No 2.5mg Q.5D Take 2.[address] [facility] MG tablet 5- 04-28 mg by [facility] 00:00: 00:00 mouth 2 Medical 00 :00 (two) Center times daily . gabapentin 2020-0 Yes 100mg Q.[id number] Take [address] [facility] (NEURONTIN) 5-08 [id number] mg by L ukes 100 MG 00:00: 3D mouth 3 Medical capsule 00 (three) Center times daily . gabapentin 2020-0 Yes 100mg Q.[id number] Take [address] [facility] (NEURONTIN) 5-08 [id number] mg by L ukes 100 MG 00:00: 3D mouth 3 Medical capsule 00 (three) Center times daily . gabapentin 2020-0 Yes 100mg Q.[id number] Take [address] [facility] (NEURONTIN) 5-08 [id number] mg by L ukes 100 MG 00:00: 3D mouth 3 Medical capsule 00 (three) Center times daily . gabapentin 202-0 Yes 100mg Q.[id number] Take [address] [facility] (NEURONTIN) 5-08 [id number] mg by L ukes 100 MG 00:00: 3D mouth 3 Medical capsule 00 (three) Center times daily . gabapentin 202-0 Yes 100mg Q.[id number] Take [address] [facility] (NEURONTIN) 5-08 [id number] mg by L ukes 100 MG 00:00: 3D mouth 3 Medical capsule 00 (three) Center times daily . gabapentin 202-0 Yes 100mg Q.[id number] Take [address] [facility] (NEURONTIN) 5-08 [id number] mg by L ukes 100 MG 00:00: 3D mouth 3 Medical capsule 00 (three) Center times daily . gabapentin 202-0 Yes 100mg Q.[id number] Take [address] [facility] (NEURONTIN) 5-08 [id number] mg by L ukes 100 MG 00:00: [...] per tablet hours as needed . potassium 2020- No 20meq QD Take [address] [facility] chloride SA 02-08 05-19 tablet (20 [facility] (K-DUR,KLOR 00:00: 00:00 mEq total) Medical -CON) 20 00 :00 by mouth Center MEQ tablet daily. potassium 2020- No 20meq QD Take [address] [facility] chloride SA 02-08 05-19 tablet (20 [facility] (K-DUR,KLOR 00:00: 00:00 mEq total) Medical -CON) 20 00 :00 by mouth Center MEQ tablet daily. glipiZIDE 2020- No 10mg Take 1 [facility] (GLUCOTROL) 02-08 05-18 tablet (10 L u[facility] 10 MG 00:00: 00:00 mg total) Medica l tablet 00 :00 by mouth 2 Center (two) times daily before meals. glipiZIDE 2020- No 10mg Take 1 [facility] (GLUCOTROL) 02-08 05-18 tablet (10 L u[facility] 10 MG 00:00: 00:00 mg total) Medica l tablet 00 :00 by mouth 2 Center (two) times daily before meals. Diltiazem 2017-0 No 60 mg, Memori a 8 Route: PO, l 14:00: Drug form: [place] 00 TAB, Daily, Dosing Weight 116.364, kg, Start date: 09/13/16 9:00:00 CDT, Duration: 30 day, Stop date: 10/12/16 9:00:00 CDT Diltiazem 2017-0 No 60 mg, Memori a 8 Route: PO, l 14:00: Drug form: [place] 00 TAB, Daily, Dosing Weight 116.364, kg, Start date: 09/13/16 9:00:00 CDT, Duration: 30 day, Stop date: 10/12/16 9:00:00 CDT Diltiazem 2017-0 No 60 mg, Memori a 8 Route: PO, l 14:00: Drug form: [place] 00 TAB, Daily, Dosing Weight 116.364, kg, Start date: 09/13/16 9:00:00 CDT, Duration: 30 day, Stop date: 10/12/16 9:00:00 CDT Diltiazem 2017-0 No 60 mg, Memori a 8- Route: PO, l 14:00: Drug form: [place] 00 TAB, Daily, Dosing Weight 116.364, kg, Start date: 09/13/16 9:00:00 CDT, Duration: 30 day, Stop date: 10/12/16 9:00:00 CDT Diltiazem 2017-0 No 60 mg, Memori a 8- Route: PO, l 14:00: Drug form: [place] 00 TAB, Daily, Dosing Weight 116.364, kg, Start date: 09/13/16 9:00:00 CDT, Duration: 30 day, Stop date: 10/12/16 9:00:00 CDT Diltiazem 2017-0 No 60 mg, Memori a 8- Route: PO, l 14:00: Drug form: [place] 00 TAB, Daily, Dosing Weight 116.364, kg, Start date: 09/13/16 9:00:00 CDT, Duration: 30 day, Stop date: 10/12/16 9:00:00 CDT Diltiazem 2017-0 No 60 mg, Memori a 8 Route: PO, l 14:00: Drug form: [place] 00 TAB, Daily, Dosing Weight 116.364, kg, Start date: 09/13/16 9:00:00 CDT, Duration: 30 day, Stop date: 10/12/16 9:00:00 CDT metoprolol No Notes: [facility]or ia tartrate 8-06 (Same as: l 02:00: Lopressor) metoprolol No Notes: [facility] tartrate 8-06 (Same as: l 02:00: Lopressor) metoprolol No Notes: [facility] tartrate 8-06 (Same as: l 02:00: Lopressor) metoprolol No Notes: [facility] tartrate 8-06 (Same as: l 02:00: Lopressor) metoprolol No Notes: [facility] tartrate 8-06 (Same as: l 02:00: Lopressor) metoprolol No Notes: [facility] tartrate 8-06 (Same as: l 02:00: Lopressor) metoprolol No Notes: [facility]or ia tartrate 8-06 (Same as: l 02:00: Lopressor) Insulin No 60 units) [facility] regular 09-12 WASTE: F/P l 19:37: - Black; E - Municipal Trash [facility] Stable for 28 days at room temperatur e Expires in days from ____Date Insulin 20170 No 60 units) [facility]o [facility] regular 09-12 WASTE: F/P l 19:37: - Black; E [place] 00 - [facility] Trash Bin Stable for 28 days at room temperatur e Expires in days from ____Date Insulin 2017-0 No 60 units) [facility] regular 09-12 WASTE: F/P l 19:37: - Black; E [place] 00 - [facility] Trash Bin Stable for 28 days at room temperatur e Expires in days from ____Date Insulin 2017-0 No 60 units) [facility] regular 09-12 WASTE: F/P l 19:37: - Black; E [place] 00 - [facility] Trash Bin Stable for 28 days at room temperatur e Expires in days from ____Date Insulin 2017-0 No 60 units) [facility] regular 09-12 WASTE: F/P l 19:37: - Black; E [place] 00 - [facility] Trash Bin Stable for 28 days at room temperatur e Expires in days from ____Date Insulin 2017-0 No 60 units) [facility] regular 09-12 WASTE: F/P l 19:37: - Black; E [place] 00 - [facility] Trash Bin Stable for 28 days at room temperatur e Expires in days from ____Date Insulin 2017-0 No 60 units) [facility] regular 09-12 WASTE: F/P l 19:37: - Black; E [place] 00 - [facility] Trash Bin Stable for 28 days at room temperatur e Expires in days from ____Date Acetaminoph Yes 1 tab, PO, Memoria en 300 MG / 8-05 Q4H, PRN l Codeine 18:19: Pain Score Herm leonard Phosphate 00 4-6, 0 30 MG Oral Refill(s) Tablet Acetaminoph Yes 1 tab, PO, [facility] 300 MG / 8-05 Q4H, PRN l Codeine 18:19: Pain Score [facility] Phosphate 00 4-6, 0 30 MG Oral Refill(s) Tablet Acetaminoph Yes 1 tab, PO, [facility] en 300 MG / 8-05 Q4H, PRN l Codeine 18:19: Pain Score [facility] Phosphate 00 4-6, 0 30 MG Oral Refill(s) Tablet Acetaminoph Yes 1 tab, PO, [facility] 300 MG / 8-05 Q4H, PRN l Codeine 18:19: Pain Score [facility] Phosphate 00 4-6, 0 30 MG Oral Refill(s) Tablet Acetaminoph Yes 1 tab, PO, Mem[facility] en 300 MG / 8-05 Q4H, PRN l Codeine 18:19: Pain Score [facility] Phosphate 00 4-6, 0 30 MG Oral Refill(s) Tablet Acetaminoph Yes 1 tab, PO, Memoria en 300 MG / 8-05 Q4H, PRN l Codeine 18:19: Pain Score Herm [facility] Phosphate 00 4-6, 0 30 MG Oral Refill(s) Tablet Acetaminoph Yes 1 tab, PO, Memoria en [...] day, Stop date: 10/12/16 11:49:00 CDT Glucagon 2017-0 No 1 mg, Memoria 8-05 Route: IM, l 16:50: Drug form: PDR/INJ, PRN, Dosing Weight 116.364, kg, PRN Blood Glucose Results, Start date: 09/12/16 11:50:00 CDT, Duration: 30 day, Stop date: 10/12/16 11:49:00 CDT Dextrose 2016-0 No 25 gm, 50 Niko [facility] 50% Syringe 8-05 mL, Route: l 16:50: IVP, Drug [place] 00 Form: INJ, Dosing Weight 116.364, kg, PRN, PRN Blood Glucose Results, Start date: 09/12/16 11:50:00 CDT, Duration: 30 day, Stop date: 10/12/16 11:49:00 CDT Glucagon 2017-0 No 1 mg, [facility] 8-05 Route: IM, l 16:50: Drug form: [place] 00 PDR/INJ, PRN, Dosing Weight 116.364, kg, PRN Blood Glucose Results, Start date: 09/12/16 11:50:00 CDT, Duration: 30 day, Stop date: 10/12/16 11:49:00 CDT Dextrose 2017-0 No 25 gm, 50 [facility] 50% Syringe 8-05 mL, Route: l 16:50: IVP, Drug [place] 00 Form: INJ, Dosing Weight 116.364, kg, PRN, PRN Blood Glucose Results, Start date: 09/12/16 11:50:00 CDT, Duration: 30 day, Stop date: 10/12/16 11:49:00 CDT Glucagon 2017-0 No 1 mg, [facility] 8-05 Route: IM, l 16:50: Drug form: [place] 00 PDR/INJ, PRN, Dosing Weight 116.364, kg, PRN Blood Glucose Results, Start date: 09/12/16 11:50:00 CDT, Duration: 30 day, Stop date: 10/12/16 11:49:00 CDT Dextrose 2017-0 No 25 gm, 50 [facility] 50% Syringe 8-05 mL, Route: l 16:50: IVP, Drug [facility] 00 Form: INJ, Dosing Weight 116.364, kg, PRN, PRN Blood Glucose Results, Start date: 09/12/16 11:50:00 CDT, Duration: 30 day, Stop date: 10/12/16 11:49:00 CDT Glucagon 2017-0 No 1 mg, [facility] 8-05 Route: IM, l 16:50: Drug form: [place] 00 PDR/INJ, PRN, Dosing Weight 116.364, kg, PRN Blood Glucose Results, Start date: 09/12/16 11:50:00 CDT, Duration: 30 day, Stop date: 10/12/16 11:49:00 CDT Dextrose 2017-0 No 25 gm, 50 [facility] 50% Syringe 8-05 mL, Route: l 16:50: IVP, Drug [place] 00 Form: INJ, Dosing Weight 116.364, kg, PRN, PRN Blood Glucose Results, Start date: 09/12/16 11:50:00 CDT, Duration: 30 day, Stop date: 10/12/16 11:49:00 CDT Glucagon 2017-0 No 1 mg, Memoria 8 Route: IM, l 16:50: Drug form: [place] 00 PDR/INJ, PRN, Dosing Weight 116.364, kg, PRN Blood Glucose Results, Start date: 09/12/16 11:50:00 CDT, Duration: 30 day, Stop date: 10/12/16 11:49:00 CDT Dextrose 2017-0 No 25 gm, 50 Niko og 50% Syringe 8-05 mL, Route: l 16:50: IVP, Drug [place] 00 Form: INJ, Dosing Weight 116.364, kg, PRN, PRN Blood Glucose Results, Start date: 09/12/16 11:50:00 CDT, Duration: 30 day, Stop date: 10/12/16 11:49:00 CDT Glucagon 2017-0 No 1 mg, Memoria 09-12 Route: IM, l 16:50: Drug form: [place] 00 PDR/INJ, PRN, Dosing Weight 116.364, kg, PRN Blood Glucose Results, Start date: 09/12/16 11:50:00 CDT, Duration: 30 day, Stop date: 10/12/16 11:49:00 CDT Dextrose 2017-0 No 25 gm, 50 Niko og 50% Syringe 8-05 mL, Route: l 16:50: IVP, Drug [place] 00 Form: INJ, Dosing Weight 116.364, kg, PRN, PRN Blood Glucose Results, Start date: 09/12/16 11:50:00 CDT, Duration: 30 day, Stop date: 10/12/16 11:49:00 CDT Glucagon 2017-0 No 1 mg, Memoria 8 Route: IM, l 16:50: Drug form: [place] 00 PDR/INJ, PRN, Dosing Weight 116.364, kg, PRN Blood Glucose Results, Start date: 09/12/16 11:50:00 CDT, Duration: 30 day, Stop date: 10/12/16 11:49:00 CDT valsartan 2017-0 No Notes: Memori a 8-05 Same as l 14:00: Diovan [place] valsartan 2016-0 No Notes: Memori a 8-05 Same as l 14:00: Diovan [place] valsartan 2017-0 No Notes: Memori a 8-05 Same as l 14:00: Diovan [place] valsartan 2017-0 No Notes: Memori a 8-05 Same as l 14:00: Diovan [place] valsartan 2016-0 No Notes: Memori a 8-05 Same as l 14:00: Diovan [place] valsartan 2017-0 No Notes: Memori a 8-05 Same as l 14:00: Diovan [place] valsartan 2017-0 No Notes: Memori a 8-05 Same as l 14:00: Diovan [place] Cefazolin 2016-0 No Notes: Memori a 09-12 (Same As: l 04:00: Ancef, [place] 00 Kefzol) MEDICATION WASTE Product Size: 1000 mg Product Wasted: _0_ mg Cefazolin 2017-0 No Notes: Memori a 09-12 (Same As: l 04:00: Ancef, [place] 00 Kefzol) MEDICATION WASTE Product Size: 1000 mg Product Wasted: _0_ mg Cefazolin 2017-0 No Notes: Memori a 09-12 (Same As: l 04:00: Ancef, [place] 00 Kefzol) MEDICATION WASTE Product Size: 1000 mg Product Wasted: _0_ mg Cefazolin 2017-0 No Notes: Memori a 09-12 (Same As: l 04:00: Ancef, [place] 00 Kefzol) MEDICATION WASTE Product Size: 1000 mg Product Wasted: _0_ mg Cefazolin 2017-0 No Notes: Memori a 09-12 (Same As: l 04:00: Ancef, [place] 00 Kefzol) MEDICATION WASTE Product Size: 1000 mg Product Wasted: _0_ mg Cefazolin No Notes: Memori a 8-05 (Same As: l 04:00: Ancef, [place] Kefzol) MEDICATION WASTE Product Size: 1000 mg Product Wasted: _0_ mg Cefazolin No Notes: Memori a 8-05 (Same As: l 04:00: Ancef, [place] 00 Kefzol) MEDICATION WASTE Product Size: 1000 mg Product Wasted: _0_ mg Calcium No Notes: [facility]oria Gluconate 09-12 WASTE: F/P l 03:33: - Sink; E [place] 00 - [employer] Trash Bin Magnesium No Notes: Memori a Oxide 09-12 (Same as: l 03:33: Mag-Ox [place] 400) Magnesium oxide 649un=736y g elemental magnesium Dose=____m g magnesium oxide [...] - (Same as: l odium 03:33: Phos-NaK) [place] phosphate 00 Each 1.5 250 mg-280 gm pkt has mg-160 mg 250mg oral powder phosphorou for s. Mix reconstitut w/2.5oz ion water and stir. potassium No Notes: Memori a phosphate 8-05 (Same as: l 03:33: K [place] 00 Phosphate. ) 1 mMol phoshate has 1.47 mEq potassium Infuse over 4 hours Calcium No Notes: [facility] Gluconate 8-05 WASTE: F/P l 03:33: - Sink; E [place] 00 - [employer] Trash Bin Magnesium No Notes: Memori a Oxide 8-05 (Same as: l 03:33: Mag-Ox [place] 00 400) Magnesium oxide 992uh=334z g elemental magnesium Dose=____m g magnesium oxide (___mg elemental magnesium) Magnesium No Notes: Memori a Sulfate 8- WASTE: F/P l 03:33: - Sink; E [place] - [employer] Trash Bin sodium No 15 mmol, 5 Memor ia phosphate 8-05 mL, Route: l 03:33: IVPB, PRN, [place] 00 Dosing Weight 116.364, kg, PRN Abnormal Lab Result, For NON-ICU Patients Only., Start date: 09/11/16 22:33:00 CDT, Duration: 30 day, Stop date: 10/11/16 22:32:00 CDT Potassium No Notes: Memori a Chloride 8-05 (Same as: l 03:33: KCL) [place] 00 Infuse over 2 hours. potassium No Notes: Memori a phosphate-s 8-05 (Same as: l odium 03:33: Phos-NaK) [place] phosphate 00 Each 1.5 250 mg-280 gm pkt has mg-160 mg 250mg oral powder phosphorou for s. Mix reconstitut w/2.5oz ion water and stir. potassium No Notes: Memori a phosphate 8-05 (Same as: l 03:33: K [place] Phosphate. ) 1 mMol phoshate has 1.47 mEq potassium Infuse over 4 hours Calcium No Notes: [facility] Gluconate 8-05 WASTE: F/P l 03:33: - Sink; E [place] 00 - [facility] Trash Bin Magnesium No Notes: Memori a Oxide 8-05 (Same as: l 03:33: Mag-Ox [place] 00 400) Magnesium oxide 734yx=504l g elemental magnesium Dose=____m g magnesium oxide (___mg elemental magnesium) Magnesium No Notes: Memori a Sulfate 8-05 WASTE: F/P l 03:33: - Sink; E [place] - [facility] Trash [facility] sodium No 15 mmol, 5 [facility] ia phosphate 8-05 mL, Route: l 03:33: IVPB, PRN, Dosing Weight 116.364, kg, PRN Abnormal Lab Result, For NON-ICU Patients Only., Start date: 09/11/16 22:33:00 CDT, Duration: 30 day, Stop date: 10/11/16 22:32:00 CDT Potassium No Notes: Memori a Chloride 8-05 (Same as: l 03:33: KCL) Infuse over 2 hours. potassium No Notes: Memori a phosphate-s 8-05 (Same as: l odium 03:33: Phos-NaK) [place] phosphate 00 Each 1.5 250 mg-280 gm pkt has mg-160 mg 250mg oral powder phosphorou for s. Mix reconstitut w/2.5oz ion water and stir. potassium No Notes: Memori a phosphate 8-05 (Same as: l 03:33: K Phosphate. ) 1 mMol phoshate has 1.47 mEq potassium Infuse over 4 hours Calcium No Notes: [facility] Gluconate 8-05 WASTE: F/P l 03:33: - Sink; E - [facility] Trash Bin Magnesium No Notes: Memori a Oxide 8-05 (Same as: l 03:33: Mag-Ox 400) Magnesium oxide [id number] g elemental magnesium Dose=____m g magnesium oxide (___mg elemental magnesium) Magnesium No Notes: Memori a Sulfate 8- WASTE: F/P l 03:33: - Sink; E - [facility] Trash [facility] sodium No 15 mmol, 5 Memor ia phosphate 8-05 mL, Route: l 03:33: IVPB, PRN, Dosing Weight 116.364, kg, PRN Abnormal Lab Result, For NON-ICU Patients Only., Start date: 09/11/16 22:33:00 CDT, Duration: 30 day, Stop date: 10/11/16 22:32:00 CDT Potassium No Notes: Memori a Chloride 8-05 (Same as: l 03:33: KCL) Infuse over 2 hours. potassium No Notes: Memori a phosphate-s 8-05 (Same as: l odium 03:33: Phos-NaK) [place] phosphate 00 Each 1.5 250 mg-280 gm pkt has mg-160 mg 250mg oral powder phosphorou for s. Mix reconstitut w/2.5oz ion water and stir. potassium No Notes: Memori a phosphate 8-05 (Same as: l 03:33: K Phosphate. ) 1 mMol phoshate has 1.47 mEq potassium Infuse over 4 hours Calcium No Notes: [facility] Gluconate 8- WASTE: F/P l 03:33: - Sink; E - [facility] Trash Bin Magnesium No Notes: Memori a Oxide 09-12 (Same as: l 03:33: Mag-Ox 400) Magnesium oxide 217gn=461j g elemental magnesium Dose=____m g magnesium oxide [...] 8-05 (Same as: l odium 03:33: Phos-NaK) [place] phosphate 00 Each 1.5 250 mg-280 gm pkt has mg-160 mg 250mg oral powder phosphorou for s. Mix reconstitut w/2.5oz ion water and stir. potassium No Notes: Memori a phosphate 8-05 (Same as: l 03:33: K Phosphate. ) 1 mMol phoshate has 1.47 mEq potassium Infuse over 4 hours Calcium No Notes: [facility] Gluconate 8- WASTE: F/P l 03:33: - Sink; E [place] - [facility] Trash Bin Magnesium No Notes: Memori a Oxide 8-05 (Same as: l 03:33: Mag-Ox [place] 400) Magnesium oxide 545io=435p g elemental magnesium Dose=____m g magnesium oxide (___mg elemental magnesium) Magnesium No Notes: Memori a Sulfate 8- WASTE: F/P l 03:33: - Sink; E [place] - [facility] Trash [facility] sodium No 15 mmol, 5 [facility]or ia phosphate 8-05 mL, Route: l 03:33: IVPB, PRN, [place] 00 Dosing Weight 116.364, kg, PRN Abnormal Lab Result, For NON-ICU Patients Only., Start date: 09/11/16 22:33:00 CDT, Duration: 30 day, Stop date: 10/11/16 22:32:00 CDT Potassium No Notes: Memori a Chloride 8-05 (Same as: l 03:33: KCL) [place] 00 Infuse over 2 hours. potassium No Notes: Memori a phosphate-s 8-05 (Same as: l odium 03:33: Phos-NaK) [place] phosphate 00 Each 1.5 250 mg-280 gm pkt has mg-160 mg 250mg oral powder phosphorou for s. Mix reconstitut w/2.5oz ion water and stir. potassium No Notes: Memori a phosphate 8-05 (Same as: l 03:33: K [place] Phosphate. ) 1 mMol phoshate has 1.47 mEq potassium Infuse over 4 hours Calcium No Notes: [facility] Gluconate 8-05 WASTE: F/P l 03:33: - Sink; E [place] - [facility] Trash Bin Magnesium No Notes: [facility] a Oxide 8-05 (Same as: l 03:33: Mag-Ox [place] 400) Magnesium oxide 145oo=668f g elemental magnesium Dose=____m g magnesium oxide (___mg elemental magnesium) Magnesium No Notes: Memori a Sulfate 8-05 WASTE: F/P l 03:33: - Sink; E [place] - [facility] Trash [facility] sodium No 15 mmol, 5 [facility] ia phosphate 8-05 mL, Route: l 03:33: IVPB, PRN, [place] 00 Dosing Weight 116.364, kg, PRN Abnormal Lab Result, For NON-ICU Patients Only., Start date: 09/11/16 22:33:00 CDT, Duration: 30 day, Stop date: 10/11/16 22:32:00 CDT Potassium No Notes: [facility] a Chloride 8-05 (Same as: l 03:33: KCL) [place] 00 Infuse over 2 hours. potassium No Notes: Memori a phosphate-s 8-05 (Same as: l odium 03:33: Phos-NaK) [place] phosphate 00 Each 1.5 250 mg-280 gm pkt has mg-160 mg 250mg oral powder phosphorou for s. Mix reconstitut w/2.5oz ion water and stir. potassium No Notes: Memori a phosphate 8-05 (Same as: l 03:33: K [place] 00 Phosphate. ) 1 mMol phoshate has 1.47 mEq potassium Infuse over 4 hours Magnesium No Notes: Mem[facility] a Sulfate 8-05 WASTE: F/P l 03:22: - Sink; E [place] - [facility] Trash [facility] Magnesium No Notes: Mem[facility] a Sulfate 8-05 WASTE: F/P l 03:22: - Sink; E [place] - [facility] Magnesium No Notes: Mem[facility] a Sulfate 8-05 WASTE: F/P l 03:22: - Sink; E [place] - [facility] Magnesium No Notes: Mem[facility] a Sulfate 8-05 WASTE: F/P l 03:22: - Sink; E [place] - [facility] Trash [facility] Magnesium No Notes: Mem[facility] a Sulfate 8-05 WASTE: F/P l 03:22: - Sink; E [place] - [facility] Magnesium No Notes: Mem[facility] a Sulfate 8-05 WASTE: F/P l 03:22: - Sink; E [place] - [facility] Magnesium No Notes: Mem[facility] a Sulfate 8-05 WASTE: F/P l 03:22: - Sink; E [place] - [facility] [facility] Magnesium No Notes: Memori a Sulfate 8-05 WASTE: F/P l 03:21: - Sink; E [place] - [facility] Potassium No Notes: Memori a Chloride 8-05 (Same as: l 03:21: K-Dur 20) [place] "Do Not Crush" With food and full glass of water Magnesium No Notes: Memori a Sulfate 8-05 WASTE: F/P l 03:21: - Sink; E [place] - [facility] Trash [facility] Potassium No Notes: Memori a Chloride 8-05 (Same as: l 03:21: K-Dur 20) [place] "Do Not Crush" With food and full glass of water Magnesium No Notes: Memori a Sulfate 8-05 WASTE: F/P l 03:21: - Sink; E [place] - [facility] Potassium No Notes: Memori a Chloride 8-05 (Same as: l 03:21: K-Dur 20) [place] "Do Not Crush" With food and full glass of water Magnesium No Notes: Memori a Sulfate 8-05 WASTE: F/P l 03:21: - Sink; E [place] - [facility] Trash [facility] Potassium No Notes: Memori a Chloride 8-05 (Same as: l 03:21: K-Dur 20) [place] 00 "Do Not Crush" With food and full glass of water Magnesium No Notes: Mem[facility] a Sulfate 8-05 WASTE: F/P l 03:21: - Sink; E [place] - [facility] Trash [facility] Potassium No Notes: Mem[facility] a Chloride 8-05 (Same as: l 03:21: K-Dur 20) [place] 00 "Do Not Crush" With food and full glass of water Magnesium No Notes: Memori a Sulfate 8-05 WASTE: F/P l 03:21: - Sink; E [place] - [facility] Trash [facility] Potassium No Notes: [facility] a Chloride 8-05 (Same as: l 03:21: K-Dur 20) [place] 00 "Do Not Crush" With food and full glass of water Magnesium No Notes: Memori a Sulfate 09-12 WASTE: F/P l 03:21: - Sink; E [place] 00 - [facility] Trash Bin Potassium No Notes: Mem[facility] a Chloride 09-12 (Same as: l 03:21: K-Dur 20) [place] 00 "Do Not Crush" With food and [...] 30 day, Stop date: 10/11/16 9:00:00 CDT Pradaxa No Notes: DO Memor ia 09-12 NOT break, l 02:00: chew or [place] 00 open capsules for administra tion. metoprolol No 25 mg, Memor ia tartrate 09-12 Route: PO, l 02:00: Drug form: [place] 00 TAB, Q12H, Dosing Weight 116.364, kg, Start date: 09/11/16 21:00:00 CDT, Duration: 30 day, Stop date: 10/11/16 9:00:00 CDT Pradaxa No Notes: DO Memor ia 09-12 NOT break, l 02:00: chew or [place] 00 open capsules for administra tion. metoprolol No 25 mg, Memor ia tartrate 09-12 Route: PO, l 02:00: Drug form: [place] 00 TAB, Q12H, Dosing Weight 116.364, kg, Start date: 09/11/16 21:00:00 CDT, Duration: 30 day, Stop date: 10/11/16 9:00:00 CDT Pradaxa No Notes: DO [facility] ia 8-05 NOT break, l 02:00: chew or [place] 00 open capsules for administra tion. metoprolol No 25 mg, Memor ia tartrate 09-12 Route: PO, l 02:00: Drug form: [place] 00 TAB, Q12H, Dosing Weight 116.364, kg, Start date: 09/11/16 21:00:00 CDT, Duration: 30 day, Stop date: 10/11/16 9:00:00 CDT Pradaxa 2017-0 No Notes: DO Memor ia 805 NOT break, l 02:00: chew or [place] 00 open capsules for administra tion. metoprolol 2016-0 No 25 mg, Memor ia tartrate 09-12 Route: PO, l 02:00: Drug form: [place] 00 TAB, Q12H, Dosing Weight 116.364, kg, Start date: 09/11/16 21:00:00 CDT, Duration: 30 day, Stop date: 10/11/16 9:00:00 CDT Pradaxa 2017-0 No Notes: DO [facility] ia 8-05 NOT break, l 02:00: chew or [place] 00 open capsules for administra tion. metoprolol 2016-0 No 25 mg, [facility] ia tartrate 09-12 Route: PO, l 02:00: Drug form: [place] 00 TAB, Q12H, Dosing Weight 116.364, kg, Start date: 09/11/16 21:00:00 CDT, Duration: 30 day, Stop date: 10/11/16 9:00:00 CDT Pradaxa 2017-0 No Notes: DO [facility] ia 09-12 NOT break, l 02:00: chew or [place] 00 open capsules for administra tion. metoprolol 2016-0 No 25 mg, [facility] ia tartrate 09-12 Route: PO, l 02:00: Drug form: [place] 00 TAB, Q12H, Dosing Weight 116.364, kg, Start date: 09/11/16 21:00:00 CDT, Duration: 30 day, Stop date: 10/11/16 9:00:00 CDT Lasix 2017-0 No 20 mg, Memoria 09-11 Route: l 23:38: IVP, Drug [place] 00 form: INJ, ONCE, Dosing Weight 116.364, kg, Start date: 09/11/16 18:38:00 CDT, Stop date: 09/11/16 18:38:00 CDT Lasix 2017-0 No 20 mg, Memoria 8 Route: l 23:38: IVP, Drug [place] 00 form: INJ, ONCE, Dosing Weight 116.364, kg, Start date: 09/11/16 18:38:00 CDT, Stop date: 09/11/16 18:38:00 CDT Lasix 2016-0 No 20 mg, Memoria 09-11 Route: l 23:38: IVP, Drug [place] 00 form: INJ, ONCE, Dosing Weight 116.364, kg, Start date: 09/11/16 18:38:00 CDT, Stop date: 09/11/16 18:38:00 CDT Lasix 2016-0 No 20 mg, [facility]oria 09-11 Route: l 23:38: IVP, Drug [place] 00 form: INJ, ONCE, Dosing Weight 116.364, kg, Start date: 09/11/16 18:38:00 CDT, Stop date: 09/11/16 18:38:00 CDT Lasix 2016-0 No 20 mg, [facility] 09-11 Route: l 23:38: IVP, Drug [place] 00 form: INJ, ONCE, Dosing Weight 116.364, kg, Start date: 09/11/16 18:38:00 CDT, Stop date: 09/11/16 18:38:00 CDT Lasix 2016-0 No 20 mg, [facility] 09-11 Route: l 23:38: IVP, Drug [place] 00 form: INJ, ONCE, Dosing Weight 116.364, kg, Start date: 09/11/16 18:38:00 CDT, Stop date: 09/11/16 18:38:00 CDT Lasix 2016-0 No 20 mg, [facility] 09-11 Route: l 23:38: IVP, Drug [place] 00 form: INJ, ONCE, Dosing Weight 116.364, kg, Start date: 09/11/16 18:38:00 CDT, Stop date: 09/11/16 18:38:00 CDT Diltiazem 2016-0 No Notes: Memori a 09-11 (Same as: l 22:51: Cardizem) Diltiazem 2016-0 No Notes: Memori a 09-11 (Same as: l 22:51: Cardizem) [place] 00 Diltiazem 2016-0 No Notes: Memori a 8-04 (Same as: l 22:51: Cardizem) Diltiazem No Notes: Memori a 8-04 (Same as: l 22:51: Cardizem) Diltiazem No Notes: Memori a 8-04 (Same as: l 22:51: Cardizem) Diltiazem No Notes: Memori a 8-04 (Same as: l 22:51: Cardizem) Diltiazem No Notes: Memori a 8-04 (Same as: l 22:51: Cardizem) tramadol No 50 mg, PO, Mem oria hydrochlori 8-04 Q4H, PRN l de 50 MG 22:32: Pain Score Her lea Oral Tablet 00 1-3, # 10 tab, 0 Refill(s) tramadol No 50 mg, PO, Mem oria hydrochlori 8-04 Q4H, PRN l de 50 MG 22:32: Pain Score [place] Oral Tablet 00 1-3, # 10 tab, 0 Refill(s) tramadol No 50 mg, PO, Mem oria hydrochlori 8-04 Q4H, PRN l de 50 MG 22:32: Pain Score [place] Oral Tablet 00 1-3, # 10 tab, 0 Refill(s) tramadol No 50 mg, PO, Mem oria hydrochlori 8-04 Q4H, PRN l de 50 MG 22:32: Pain Score [place] Oral Tablet 00 1-3, # 10 tab, 0 Refill(s) tramadol 0 No 50 mg, PO, Mem oria hydrochlori 8-04 Q4H, PRN l de 50 MG 22:32: Pain Score [place] Oral Tablet 00 1-3, # 10 tab, 0 Refill(s) tramadol 0 No 50 mg, PO, Mem oria hydrochlori 8-04 Q4H, PRN l de 50 MG 22:32: Pain Score [place] Oral Tablet 00 1-3, # 10 tab, 0 Refill(s) tramadol 0 No 50 mg, PO, Mem oria hydrochlori 8-04 Q4H, PRN l de 50 MG 22:32: Pain Score [place] Oral Tablet 00 1-3, # 10 tab, 0 Refill(s) tramadol No Notes: Not Mem oria hydrochlori 8-04 to exceed l de 50 MG 22:31: 400mg/day. Her lea Oral Tablet 00 (Same As: Ultram) tramadol No Notes: Not Mem oria hydrochlori 8-04 to exceed l de 50 MG 22:31: 400mg/day. Her le[place] Oral Tablet 00 (Same As: Ultram) tramadol No Notes: Not Mem oria hydrochlori 8-04 to exceed l de 50 MG 22:31: 400mg/day. Her le[place] Oral Tablet 00 (Same As: Ultram) tramadol No Notes: Not Mem oria hydrochlori 8-04 to exceed l de 50 MG 22:31: 400mg/day. Her le[place] Oral Tablet 00 (Same As: Ultram) tramadol No Notes: Not Mem oria hydrochlori 8-04 to exceed l de 50 MG 22:31: 400mg/day. Her lea Oral Tablet 00 (Same As: Ultram) tramadol No Notes: Not Mem oria hydrochlori 8-04 to exceed l de 50 MG 22:31: 400mg/day. [place] Oral Tablet 00 (Same As: Ultram) tramadol No Notes: Not Mem oria hydrochlori 8-04 to exceed l de 50 MG 22:31: 400mg/day. Her le[place] Oral Tablet 00 (Same As: Ultram) metoprolol Yes 25 mg, PO, M emoria tartrate 25 8-04 Q12H, # 60 l mg oral 22:15: tab, 1 [place] tablet 00 Refill(s) metoprolol No Notes: Memor ia tartrate 8-04 (Same as: l 22:15: Lopressor) metoprolol Yes 25 mg, PO, M emoria tartrate 25 8-04 Q12H, # 60 l mg oral 22:15: tab, 1 [place] tablet 00 Refill(s) metoprolol No Notes: Memor ia tartrate 804 (Same as: l 22:15: Lopressor) [place] 00 metoprolol Yes 25 mg, PO, M emoria tartrate 25 8-04 Q12H, # 60 l mg oral 22:15: tab, 1 [place] tablet 00 Refill(s) metoprolol No Notes: Memor ia tartrate 09-11 (Same as: l 22:15: Lopressor) metoprolol Yes 25 mg, PO, M emoria tartrate 25 8-04 Q12H, # 60 l mg oral 22:15: tab, 1 [place] tablet 00 Refill(s) metoprolol No Notes: Memor ia tartrate 09-11 (Same as: l 22:15: Lopressor) metoprolol Yes 25 mg, PO, M emoria tartrate 25 8- Q12H, # 60 l mg oral 22:15: tab, 1 [place] tablet 00 Refill(s) metoprolol No Notes: Memor ia tartrate 09-11 (Same as: l 22:15: Lopressor) metoprolol Yes 25 mg, PO, M emoria tartrate 25 8 Q12H, # 60 l mg oral 22:15: tab, 1 [place] tablet 00 Refill(s) metoprolol No Notes: [facility] ia tartrate 09-11 (Same as: l 22:15: Lopressor) metoprolol Yes 25 mg, PO, M emoria tartrate 25 8-04 Q12H, # 60 l mg oral 22:15: [...] = 1 M emoria 500 mg oral 04 cap, PO, l capsule 22:00: TID, # 15 [place] nn 00 cap, 0 Refill(s) Acetaminoph No 1 tab, PO, Memoria en 300 MG / 8-04 Q4H, PRN l Codeine 22:00: Pain Score Herm leonard Phosphate 00 4-6, # 12 15 MG Oral tab, 0 Tablet Refill(s) cephalexin Yes 500 mg = 1 M emoria 500 mg oral 8-04 cap, PO, l capsule 22:00: TID, # 15 [place] nn 00 cap, 0 Refill(s) Acetaminoph No 1 tab, PO, Memoria en 300 MG / 8-04 Q4H, PRN l Codeine 22:00: Pain Score Herm [place] Phosphate 00 4-6, # 12 15 MG Oral tab, 0 Tablet Refill(s) cephalexin Yes 500 mg = 1 M emoria 500 mg oral 8-04 cap, PO, l capsule 22:00: TID, # 15 [place] nn 00 cap, 0 Refill(s) Acetaminoph No 1 tab, PO, Memoria en 300 MG / 8-04 Q4H, PRN l Codeine 22:00: Pain Score Herm [place] Phosphate 00 4-6, # 12 15 MG Oral tab, 0 Tablet Refill(s) cephalexin Yes 500 mg = 1 M emoria 500 mg oral 8-04 cap, PO, l capsule 22:00: TID, # 15 [place] nn 00 cap, 0 Refill(s) Acetaminoph No 1 tab, PO, Memoria en 300 MG / 8-04 Q4H, PRN l Codeine 22:00: Pain Score Herm [place] Phosphate 00 4-6, # 12 15 MG Oral tab, 0 Tablet Refill(s) cephalexin Yes 500 mg = 1 M emoria 500 mg oral 8-04 cap, PO, l capsule 22:00: TID, # 15 [place] nn 00 cap, 0 Refill(s) Acetaminoph No 1 tab, PO, Memoria en 300 MG / 8-04 Q4H, PRN l Codeine 22:00: Pain Score Herm [place] Phosphate 00 4-6, # 12 15 MG Oral tab, 0 Tablet Refill(s) cephalexin Yes 500 mg = 1 M emoria 500 mg oral 8-04 cap, PO, l capsule 22:00: TID, # 15 [place] nn 00 cap, 0 Refill(s) Acetaminoph No 1 tab, PO, Memoria en 300 MG / 804 Q4H, PRN l Codeine 22:00: Pain Score Herm le[place]ard Phosphate 00 4-6, # 12 15 MG Oral tab, 0 Tablet Refill(s) cephalexin Yes 500 mg = 1 M emoria 500 mg oral 04 cap, PO, l capsule 22:00: TID, # 15 [place] nn 00 cap, 0 Refill(s) acetaminoph No Notes: Do M emoria en-codeine 09-11 not exceed l #3 21:59: 4gm/day of [place] 00 acetaminop hen. (Same as: Tylenol with Codeine # 3) acetaminoph No Notes: Do M emoria en-codeine 09-11 not exceed l #3 21:59: 4gm/day of [place] 00 acetaminop hen. (Same as: Tylenol with Codeine # 3) acetaminoph No Notes: Do M emoria en-codeine 8- not exceed l #3 21:59: 4gm/day of [place] 00 acetaminop hen. (Same as: Tylenol with Codeine # 3) acetaminoph No Notes: Do M emoria en-codeine 8-04 not exceed l #3 21:59: 4gm/day of [place] 00 acetaminop hen. (Same as: Tylenol with Codeine # 3) acetaminoph No Notes: Do M emoria en-codeine 8- not exceed l #3 21:59: 4gm/day of [place] 00 acetaminop hen. (Same as: Tylenol with Codeine # 3) acetaminoph No Notes: Do M emoria en-codeine 8-04 not exceed l #3 21:59: 4gm/day of [place] 00 acetaminop hen. (Same as: Tylenol with Codeine # 3) acetaminoph No Notes: Do M emoria en-codeine 8-04 not exceed l #3 21:59: 4gm/day of [place] 00 acetaminop hen. (Same as: Tylenol with Codeine # 3) dabigatran 2017 Yes 150 mg = 1 M emoria etexilate 8-04 cap, PO, l 150 MG Oral 16:33: Q12H, # Her lea Capsule 00 180 cap, 3 [Pradaxa] Refill(s) Metformin Yes 850 mg, Memor ia 8-04 PO, QAM, 0 l 16:33: Refill(s) valsartan Yes 320 mg = 1 Me moria 320 mg oral 8-04 tab, PO, l tablet 16:33: Daily, # [place] 00 90 tab, 0 Refill(s) Glipizide 2017 Yes 10 mg = 1 Mem oria 10 MG Oral 8-04 tab, PO, l Tablet 16:33: BID-Before Odalys nn 00 Meals, # 180 tab, 1 Refill(s) dabigatran Yes 150 mg = 1 M emoria etexilate 8-04 cap, PO, l 150 MG Oral 16:33: Q12H, # Her lea Capsule 00 180 cap, 3 [Pradaxa] Refill(s) Metformin Yes 850 mg, Memor ia 8-04 PO, QAM, 0 l 16:33: Refill(s) valsartan 0 Yes 320 mg = 1 Me moria 320 mg oral 8-04 tab, PO, l tablet 16:33: Daily, # [place] 00 90 tab, 0 Refill(s) Glipizide 2017 Yes 10 mg = 1 Mem oria 10 MG Oral 8-04 tab, PO, l Tablet 16:33: BID-Before Odalys nn 00 Meals, # 180 tab, 1 Refill(s) dabigatran 20170 Yes 150 mg = 1 M emoria etexilate 8-04 cap, PO, l 150 MG Oral 16:33: Q12H, # Her lea Capsule 00 180 cap, 3 [Pradaxa] Refill(s) Metformin 20170 Yes 850 mg, Memor ia 8-04 PO, QAM, 0 l 16:33: Refill(s) valsartan Yes 320 mg = 1 Me moria 320 mg oral 8-04 tab, PO, l tablet 16:33: Daily, # [place] 00 90 tab, 0 Refill(s) Glipizide 2017 Yes 10 mg = 1 Mem oria 10 MG Oral 8-04 tab, PO, l Tablet 16:33: BID-Before 00 Meals, # 180 tab, 1 Refill(s) dabigatran Yes 150 mg = 1 M emoria etexilate 8-04 cap, PO, l 150 MG Oral 16:33: Q12H, # Her lea Capsule 00 180 cap, 3 [Pradaxa] Refill(s) Metformin Yes 850 mg, Memor ia 8-04 PO, QAM, 0 l 16:33: Refill(s) valsartan Yes 320 mg = 1 Me moria 320 mg oral 8-04 tab, PO, l tablet 16:33: Daily, # [place] 00 90 tab, 0 Refill(s) Glipizide Yes 10 mg = 1 Mem oria 10 MG Oral 8-04 tab, PO, l Tablet 16:33: BID-Before Meals, # 180 tab, 1 Refill(s) dabigatran Yes 150 mg = 1 M emoria etexilate 8-04 cap, PO, l 150 MG Oral 16:33: Q12H, # Her lea Capsule 00 180 cap, 3 [Pradaxa] Refill(s) Metformin Yes 850 mg, Memor ia 8-04 PO, QAM, 0 l 16:33: Refill(s) valsartan Yes 320 mg = 1 Me moria 320 mg oral 8-04 tab, PO, l tablet 16:33: Daily, # [place] 00 90 tab, 0 Refill(s) Glipizide Yes 10 mg = 1 Mem oria 10 MG Oral 8-04 tab, PO, l Tablet 16:33: BID-Before Odalys nn 00 Meals, # 180 tab, 1 Refill(s) dabigatran Yes 150 mg = 1 M emoria etexilate 8-04 cap, PO, l 150 MG Oral 16:33: Q12H, # Her lea Capsule 00 180 cap, 3 [Pradaxa] Refill(s) Metformin Yes 850 mg, Memor ia 8-04 PO, QAM, 0 l 16:33: Refill(s) Tino 00 valsartan 2017 Yes 320 mg = 1 Me moria 320 mg oral 8-04 tab, PO, l tablet 16:33: Daily, # [place] 00 90 tab, 0 Refill(s) Glipizide 2017 Yes 10 mg = 1 Mem oria 10 MG Oral 8-04 tab, PO, l Tablet 16:33: BID-Before Odalys nn 00 Meals, # 180 tab, 1 Refill(s) dabigatran Yes 150 mg = 1 M emoria etexilate 8-04 cap, PO, l 150 MG Oral 16:33: Q12H, # Her lea Capsule 00 180 cap, 3 [Pradaxa] Refill(s) Metformin Yes 850 mg, Memor ia 8-04 PO, QAM, 0 l 16:33: Refill(s) valsartan Yes 320 mg = 1 Me moria 320 mg oral 8-04 tab, PO, l tablet 16:33: Daily, # [place] 00 90 tab, 0 Refill(s) Glipizide Yes 10 mg = 1 Mem oria 10 MG Oral 8-04 tab, PO, l Tablet 16:33: BID-Before Odalys nn 00 Meals, # 180 tab, 1 Refill(s) sodium 2017-0 No 1,000 mL, Memori a chloride 09-11 Rate: 50 l 0.9% 1000 16:04: ml/hr, Pepe n ml INJ 00 Infuse 1,000 mL over: 20 hr, Route: IV, Dosing Weight 116.364 kg, Total Volume: 1,000, Start date: 09/11/16 11:04:00 CDT, Duration: 30 day, Stop date: 10/11/16 11:03:00 CDT sodium 2017- No 1,000 mL, Memori a chloride 09-11 Rate: 50 l 0.9% 1000 16:04: ml/hr, Pepe n ml INJ 00 Infuse 1,000 mL over: 20 hr, Route: IV, Dosing Weight 116.364 kg, Total Volume: 1,000, Start date: 09/11/16 11:04:00 CDT, Duration: 30 day, Stop date: 10/11/16 11:03:00 CDT sodium 2017-0 No 1,000 mL, Memori a chloride 8-04 Rate: 50 l 0.9% 1000 16:04: ml/hr, Pepe n ml INJ 00 Infuse 1,000 mL over: 20 hr, Route: IV, Dosing Weight 116.364 kg, Total Volume: 1,000, Start date: 09/11/16 11:04:00 CDT, Duration: 30 day, Stop date: 10/11/16 11:03:00 CDT sodium 2017-0 No 1,000 mL, Memori a chloride 8-04 Rate: 50 l 0.9% 1000 16:04: ml/hr, Pepe n ml INJ 00 Infuse 1,000 mL over: 20 hr, Route: IV, Dosing Weight 116.364 kg, Total Volume: 1,000, Start date: 09/11/16 11:04:00 CDT, Duration: 30 day, Stop date: 10/11/16 11:03:00 CDT sodium 2017-0 No 1,000 mL, Memori a chloride 8-04 Rate: 50 l 0.9% 1000 16:04: ml/hr, Pepe n ml INJ 00 Infuse 1,000 mL over: 20 hr, Route: IV, Dosing Weight 116.364 kg, Total Volume: 1,000, Start date: 09/11/16 11:04:00 CDT, Duration: 30 day, Stop date: 10/11/16 11:03:00 CDT sodium 2017-0 No 1,000 mL, Memori a chloride 8-04 Rate: 50 l 0.9% 1000 16:04: ml/hr, Pepe n ml INJ 00 Infuse 1,000 mL over: 20 hr, Route: IV, Dosing Weight 116.364 kg, Total Volume: 1,000, Start date: 09/11/16 11:04:00 CDT, Duration: 30 day, Stop date: 10/11/16 11:03:00 CDT sodium 2017-0 No 1,000 mL, Memori a chloride 8-04 Rate: 50 l 0.9% 1000 16:04: ml/hr, [...] Tropicamide No Notes: Niko og 10 MG/ML - (Same As: l Ophthalmic 17:05: Mydriacyl, H ermann Solution 00 Opticyl, [Mydriacyl] Tropicacyl ) Phenylephri No 1 drp, Niko og ne [...] Tropicamide No Notes: Niko og 10 MG/ML -27 (Same As: l Ophthalmic 17:05: Mydriacyl, H ermann Solution 00 Opticyl, [Mydriacyl] Tropicacyl ) Phenylephri No 1 drp, Niko og ne [...] ermann Solution 00 Opticyl, [Mydriacyl] Tropicacyl ) Phenylephri No 1 drp, Niko og ne [...] ermann Solution 00 Opticyl, [Mydriacyl] Tropicacyl ) Phenylephri No 1 drp, Niko og ne [...] ermann Solution 00 Opticyl, [Mydriacyl] Tropicacyl ) Phenylephri No 1 drp, Niko og ne [...] ermann Solution 00 Opticyl, [Mydriacyl] Tropicacyl ) Phenylephri No 1 drp, Niko og ne [...] tab, PO, l tablet 17:21: Daily, 0 [place] 00 Refill(s) glyBURIDE 5 Yes 10 mg = 2 M emoria mg oral 03-05 tab, PO, l tablet 17:21: BID, 0 [place] 00 Refill(s) Aspirin Low Yes PO, Daily, Memoria Dose 81 mg 03-05 0 l oral tablet 17:21: Refill(s) H erm Hydrochloro Yes 1 tab, PO, Memoria thiazide 50 1- Daily, # l MG / 17:21: 30 tab, 0 [place] Triamterene 00 Refill(s) 75 MG Oral Tablet canaglifloz Yes 100 mg = 1 Memoria [...] tab, PO, l tablet 17:21: BID, 0 [place] 00 Refill(s) Aspirin Low Yes PO, Daily, Memoria Dose 81 mg -26 0 l oral tablet 17:21: Refill(s) H Hydrochloro Yes 1 tab, PO, Memoria thiazide 50 - Daily, # l MG / 17:21: 30 tab, 0 [place] Triamterene 00 Refill(s) 75 MG Oral Tablet canaglifloz Yes 100 mg = 1 Memoria in 100 MG - tab, PO, l Oral Tablet 17:21: Daily, 0 He rmann [Invokana] 00 Refill(s) lisinopril Yes 20 mg = 1 Me moria 20 mg oral -26 tab, PO, l tablet 17:21: Daily, 0 [place] 00 Refill(s) glyBURIDE 5 Yes 10 mg = 2 M emoria mg oral -26 tab, PO, l tablet 17:21: BID, 0 [place] 00 Refill(s) Aspirin Low Yes PO, Daily, Memoria Dose 81 mg -26 0 l oral tablet 17:21: Refill(s) H erm Hydrochloro Yes 1 tab, PO, Memoria thiazide 50 1-26 Daily, # l MG / 17:21: 30 tab, 0 [place] Triamterene 00 Refill(s) 75 MG Oral Tablet canaglifloz Yes 100 mg = 1 Memoria [...] tab, PO, l tablet 17:21: BID, 0 [place] 00 Refill(s) Aspirin Low Yes PO, Daily, Memoria Dose 81 mg -26 0 l oral tablet 17:21: Refill(s) H ermann 00 Hydrochloro Yes 1 tab, PO, Memoria thiazide 50 1- Daily, # l MG / 17:21: 30 tab, 0 [place] Triamterene 00 Refill(s) 75 MG Oral Tablet canaglifloz Yes 100 mg = 1 Memoria in 100 MG - tab, PO, l Oral Tablet 17:21: Daily, 0 He rmann [Invokana] 00 Refill(s) lisinopril Yes 20 mg = 1 Me moria 20 mg oral -26 tab, PO, l tablet 17:21: Daily, 0 [place] 00 Refill(s) glyBURIDE 5 Yes 10 mg = 2 M emoria mg oral - tab, PO, l tablet 17:21: BID, 0 [place] 00 Refill(s) Aspirin Low Yes PO, Daily, Memoria Dose 81 mg - 0 l oral tablet 17:21: Refill(s) H ermann 00 Hydrochloro Yes 1 tab, PO, Memoria thiazide 50 1-26 Daily, # l MG / 17:21: 30 tab, 0 [place] Triamterene 00 Refill(s) 75 MG Oral Tablet canaglifloz Yes 100 mg = 1 Memoria in 100 MG -26 tab, PO, l Oral Tablet 17:21: Daily, 0 He rmann [Invokana] 00 Refill(s) lisinopril Yes 20 mg = 1 Me moria 20 mg oral -26 tab, PO, l tablet 17:21: Daily, 0 [place] 00 Refill(s) glyBURIDE 5 Yes 10 mg = 2 M emoria mg oral 1-26 tab, PO, l tablet 17:21: BID, 0 [place] 00 Refill(s) Aspirin Low Yes PO, Daily, Memoria Dose 81 mg 1-26 0 l oral tablet 17:21: Refill(s) H erm Hydrochloro Yes 1 tab, PO, Memoria thiazide 50 1-26 Daily, # l MG / 17:21: 30 tab, 0 [place] Triamterene 00 Refill(s) 75 MG Oral Tablet canaglifloz Yes 100 mg = 1 Memoria [...] 0 l oral tablet 17:21: Refill(s) H erm Hydrochloro Yes 1 tab, PO, Memoria thiazide 50 1-26 Daily, # l MG / 17:21: 30 tab, 0 [place] Triamterene 00 Refill(s) 75 MG Oral Tablet Vital Signs Vital Name Observation Time Observation Value Comments Source Systolic blood 2022-02-25 16:00:00 130 mm[Hg] [facility] Medicine Diastolic blood 2022-02-25 16:00:00 66 mm[Hg] [facility] Medicine Heart rate 2022-02-25 16:00:00 60 /min [facility] Body height 2022-02-25 16:00:00 182.9 cm [facility] Body weight 2022-02-25 16:00:00 101.606 kg [facility] BMI 2022-02-25 16:00:00 30.38 kg/m2 [facility] Systolic blood 2021-11-20 19:37:00 128 mm[Hg] [facility] Medicine Diastolic blood 2021-11-20 19:37:00 78 mm[Hg] [facility] Heart rate 2021-11-20 19:37:00 72 /min [facility] Systolic blood 2021-09-10 19:57:00 125 mm[Hg] [facility] Diastolic blood 2021-09-10 19:57:00 71 mm[Hg] [facility] pressure Medicine Heart rate 2021-09-10 19:57:00 78 /min [facility] Body height 2021-09-10 19:57:00 182.9 cm [facility] Body weight 2021-09-10 19:57:00 102.059 kg [facility] BMI 2021-09-10 19:57:00 30.52 kg/m2 [facility] Systolic blood 2021-07-16 14:49:00 138 mm[Hg] [facility] Medicine Diastolic blood 2021-07-16 14:49:00 67 mm[Hg] [facility] pressure Medicine Heart rate 2021-07-16 14:49:00 87 /min [facility] Body weight 2021-07-16 14:49:00 102.059 kg [facility] BMI 2021-07-16 14:49:00 30.52 kg/m2 [facility] Systolic blood 2021-06-12 18:14:00 105 mm[Hg] [facility] Medicine Diastolic blood 2021-06-12 18:14:00 67 mm[Hg] [facility] Medicine Body height 2021-06-12 18:14:00 182.9 cm [facility] Body weight 2021-06-12 18:14:00 115.214 kg [facility] BMI 2021-06-12 18:14:00 34.45 kg/m2 [facility] WEIGHT 2021-05-31 14:32:00 99.2 kg WEIGHT 2021-05-31 14:32:00 99.2 kg Systolic blood 2020-11-27 18:29:00 146 mm[Hg] [facility] Diastolic blood 2020-11-27 18:29:00 79 mm[Hg] [facility] Medicine Heart rate 2020-11-27 18:29:00 57 /min [facility] Body height 2020-11-27 18:29:00 182.9 cm [facility] Body weight 2020-11-27 18:29:00 115.214 kg [facility] BMI 2020-11-27 18:29:00 34.45 kg/m2 [facility] HEIGHT 2020-11-11 07:48:00 182.9 cm WEIGHT 2020-11-11 07:48:00 114.306 kg HEIGHT 2020-11-11 07:48:00 182.9 cm WEIGHT 2020-11-11 07:48:00 114.306 kg HEIGHT 2020-11-07 10:38:00 182.9 cm WEIGHT 2020-11-07 10:38:00 115.667 kg HEIGHT 2020-11-07 10:38:00 182.9 cm WEIGHT 2020-11-07 10:38:00 115.667 kg Systolic blood 2020-10-30 14:03:00 157 mm[Hg] [facility] Diastolic blood 2020-10-30 14:03:00 85 mm[Hg] [facility] Medicine Heart rate 2020-10-30 14:03:00 73 /min [facility] Body height 2020-10-30 14:03:00 182.9 cm [facility] Body weight 2020-10-30 14:03:00 115.214 kg [facility] BMI 2020-10-30 14:03:00 34.45 kg/m2 [facility] Systolic blood 2020-10-16 16:59:00 115 mm[Hg] [facility] Diastolic blood 2020-10-16 16:59:00 63 mm[Hg] [facility] Medicine Heart rate 2020-10-16 16:59:00 63 /min [facility] Body height 2020-10-16 16:59:00 182.9 cm [facility] Body weight 2020-10-16 16:59:00 108.863 kg [facility] BMI 2020-10-16 16:59:00 32.55 kg/m2 [facility] Systolic blood 2020-10-03 18:35:00 118 mm[Hg] [facility] Diastolic blood 2020-10-03 18:35:00 67 mm[Hg] [facility] Medicine Heart rate 2020-10-03 18:35:00 70 /min [facility] Body height 2020-10-03 18:35:00 182.9 cm [facility] Body weight 2020-10-03 18:35:00 108.863 kg [facility] BMI 2020-10-03 18:35:00 32.55 kg/m2 [facility] Body height 2020-09-04 15:40:00 182.9 cm [facility] Body weight 2020-09-04 15:40:00 108.863 kg [facility] BMI 2020-09-04 15:40:00 32.55 kg/m2 [facility] Systolic blood 2020-08-21 15:25:00 137 mm[Hg] [facility] Diastolic blood 2020-08-21 15:25:00 69 mm[Hg] [facility] Medicine Heart rate 2020-08-21 15:25:00 75 /min [facility] Body height 2020-08-21 15:25:00 182.9 cm [facility] Body weight 2020-08-21 15:25:00 108.863 kg [facility] BMI 2020-08-21 15:25:00 32.55 kg/m2 [facility] Systolic blood 2020-08-21 15:25:00 137 mm[Hg] [facility] Medicine Diastolic blood 2020-08-21 15:25:00 69 mm[Hg] [facility] Medicine Heart rate 2020-08-21 15:25:00 75 /min [facility] Body height 2020-08-21 15:25:00 182.9 cm [facility] Body weight 2020-08-21 15:25:00 108.863 kg [facility] BMI 2020-08-21 15:25:00 32.55 kg/m2 [facility] Systolic blood 2020-07-25 15:35:00 121 mm[Hg] [facility] Medicine Diastolic blood 2020-07-25 15:35:00 74 mm[Hg] [facility] Heart rate 2020-07-25 15:35:00 81 /min [facility] Body height 2020-07-25 15:35:00 182.9 cm [facility] Body weight 2020-07-25 15:35:00 108.863 kg [facility] BMI 2020-07-25 15:35:00 32.55 kg/m2 [facility] Systolic blood 2020-07-25 15:35:00 121 mm[Hg] [facility] Medicine Diastolic blood 2020-07-25 15:35:00 74 mm[Hg] [facility] Heart rate 2020-07-25 15:35:00 81 /min [facility] Body height 2020-07-25 15:35:00 182.9 cm [facility] Body weight 2020-07-25 15:35:00 108.863 kg [facility] BMI 2020-07-25 15:35:00 32.55 kg/m2 [facility] Systolic blood 2020-07-17 14:34:00 121 mm[Hg] [facility] Medicine Diastolic blood 2020-07-17 14:34:00 63 mm[Hg] [facility] Medicine Heart rate 2020-07-17 14:34:00 70 /min [facility] Body height 2020-07-17 14:34:00 182.9 cm [facility] Body weight 2020-07-17 14:34:00 108.863 kg [facility] BMI 2020-07-17 14:34:00 32.55 kg/m2 [facility] Systolic blood 2020-07-17 14:34:00 121 mm[Hg] [facility] Medicine Diastolic blood 2020-07-17 14:34:00 63 mm[Hg] [facility] Medicine Heart rate 2020-07-17 14:34:00 70 /min [facility] Body height 2020-07-17 14:34:00 182.9 cm [facility] Body weight 2020-07-17 14:34:00 108.863 kg [facility] BMI 2020-07-17 14:34:00 32.55 kg/m2 [facility] HEIGHT 2020-06-26 09:00:00 182.9 cm WEIGHT 2020-06-26 09:00:00 110.088 kg HEIGHT 2020-06-25 19:57:00 188 cm WEIGHT 2020-06-25 19:57:00 99.791 kg HEIGHT 2020-06-26 09:00:00 182.9 cm WEIGHT 2020-06-26 09:00:00 110.088 kg HEIGHT 2020-06-25 19:57:00 188 cm WEIGHT 2020-06-25 19:57:00 99.791 kg Systolic blood 2021-06-05 15:41:00 124 mm[Hg] [facility] Diastolic blood 2021-06-05 15:41:00 57 mm[Hg] [facility] Heart rate 2021-06-05 15:41:00 68 /min [facility] Body temperature 2021-06-05 15:41:00 35.61 [facility] Respiratory rate 2021-06-05 15:41:00 18 /min [facility] Oxygen saturation in 2021-06-05 15:41:00 97 /min [facility] Arterial blood by Medical nter Pulse oximetry Body weight 2021-05-31 14:32:00 99.2 kg [facility] BMI 2021-05-31 14:32:00 29.66 kg/m2 [facility] Body height 2020-11-11 07:48:00 182.9 cm [facility] Systolic blood 2020-07-05 10:59:00 113 mm[Hg] [facility] Diastolic blood 2020-07-05 10:59:00 51 mm[Hg] [facility] Heart rate 2020-07-05 10:59:00 80 /min [facility] Body temperature 2020-07-05 10:59:00 36.17 [facility] Respiratory rate 2020-07-05 10:59:00 17 /min [facility] Oxygen saturation in 2020-07-05 10:59:00 97 /min [facility] Arterial blood by Medical Ce [facility]ter Pulse oximetry Body height 2020-06-26 09:00:00 182.9 cm [facility] Body weight 2020-06-26 09:00:00 110.088 kg [facility] BMI 2020-06-26 09:00:00 32.92 kg/m2 [facility] Temperature Oral (F) 2016-09-12 20:06:00 97.9 F [facility] Respitory Rate 2016-09-12 19:00:00 [facility] [place] Systolic (mm Hg) 2016-09-12 19:00:00 Niko [facility] [place] Diastolic (mm Hg) 2016-09-12 19:00:00 Mem orial [place] Respitory Rate 2016-09-12 18:00:00 Memori al [place] Systolic (mm Hg) 2016-09-12 18:00:00 Niko rial [place] Diastolic (mm Hg) 2016-09-12 18:00:00 Mem orial [place] Respitory Rate 2016-09-12 17:00:00 Memori al [place] Systolic (mm Hg) 2016-09-12 17:00:00 Niko rial [place] Diastolic (mm Hg) 2016-09-12 17:00:00 Mem orial [place] Temperature Oral (F) 2016-09-12 12:51:00 97.9 F [facility] [place] Temperature Oral (F) 2016-09-12 10:38:00 97.6 F [facility] [place] BMI Calculated 2016-09-11 16:02:00 Memori al [place] Weight 2016-09-11 16:02:00 [facility] Height 2016-09-11 16:02:00 182.88 cm [facility] [place] Systolic (mm Hg) 2014-03-06 20:30:00 Niko rial [place] Diastolic (mm Hg) 2014-03-06 20:30:00 Mem orial [place] Respitory Rate 2014-03-06 20:30:00 Memori al [place] Diastolic (mm Hg) 2014-03-06 20:15:00 Mem orial [place] Systolic (mm Hg) 2014-03-06 20:15:00 Niko rial [place] Respitory Rate 2014-03-06 20:15:00 Memori al [place] Diastolic (mm Hg) 2014-03-06 20:02:00 Mem orial [place] Systolic (mm Hg) 2014-03-06 20:02:00 Niko rial [place] Respitory Rate 2014-03-06 20:02:00 Memori al [place] Heart Rate 2014-03-06 17:15:00 [facility] [place] Heart Rate 2014-03-05 17:17:00 [facility] BMI Calculated 2014-03-05 16:24:00 [facility] [place] Weight 2014-03-05 16:24:00 [facility] [place] Height 2014-03-05 16:24:00 180.34 cm [facility] [place] Procedures Procedure Date / Time Performed Performing Clinician Sour e CBC W/PLT COUNT & AUTO 2021-06-05 09:38:[address] [facility] DIFFERENTIAL [facility] BASIC METABOLIC PANEL 2021-06-05 09:38:00 Gerda Schneider [facility] CBC W/PLT COUNT & AUTO 2021-06-05 09:38:[address] [facility] DIFFERENTIAL [facility] (CELLAVISION MANUAL 2021-06-05 09:38:[address] [facility] DIFF) [facility] POCT-GLUCOSE METER 2021-06-05 07:45:00 [facility] 2021-06-04 22:32:00 [facility] POCT-GLUCOSE METER 2021-06-04 16:52:00 [facility] XR FOOT 3 VIEWS LEFT 2021-06-04 13:52:00 Stanford Marcum [facility] POCT-GLUCOSE METER 2021-06-04 13:36:00 [facility] TISSUE EXAM 2021-06-04 13:00:00 [facility] TOE 2021-06-04 12:12:00 Aleksandr Duong [facility] POCT-GLUCOSE METER 2021-06-04 08:19:00 [facility] APTT 2021-06-04 04:56:00 Stanford Marcum Tim [facility] POCT-GLUCOSE METER 2021-06-03 22:20:00 [facility] POCT-GLUCOSE METER 2021-06-03 12:50:00 [facility] POCT-GLUCOSE METER 2021-06-03 10:13:00 [facility] ANGIOGRAM, ILIAC VESSEL 2021-06-03 07:19:00 Eli Denny [facility] APTT 2021-06-03 05:05:[address] [facility] APTT 2021-06-02 22:10:00 Stanford Marcum Tim [facility] POCT-GLUCOSE METER 2021-06-02 21:04:00 Wyatt [facility] POCT-GLUCOSE METER 2021-06-02 17:37:00 Wyatt [facility] APTT 2021-06-02 14:48:00 Stanford Marcum [facility] POCT-GLUCOSE METER 2021-06-02 12:43:00 [facility] 2021-06-02 11:09:00 Winifred [facility] POCT-GLUCOSE METER 2021-06-02 08:14:00 [facility] TYPE AND SCREEN, 2021-06-02 07:56:00 Susan [facility] APTT 2021-06-02 07:50:00 Stanford Marcum [facility] APTT 2021-06-02 00:25:00 Jossue [facility] POCT-GLUCOSE METER 2021-06-01 22:24:00 [facility] ART[facility] (SRIRAM'S W/ 2021-06-01 21:10:00 Susan [facility] DOPPLER) [facility] APTT 2021-06-01 18:01:00 Stanford Marcum [facility] POCT-GLUCOSE METER 2021-06-01 16:57:00 [facility] XR FOOT 3 VIEWS LEFT 2021-06-01 13:27:00 Chago Larson [facility] POCT-GLUCOSE METER 2021-06-01 12:09:00 [facility] 2021-06-01 11:36:00 Stanford Marcum [facility] ARTERIAL DOPPLER LEGS 2021-06-01 11:05:00 Susan [facility] POCT-GLUCOSE METER 2021-06-01 07:57:00 [facility] CBC W/PLT COUNT & AUTO 2021-06-01 05:13:[address] [facility] BASIC METABOLIC PANEL 2021-06-01 05:13:00 Candida [facility] HEPATIC FUNCTION PANEL 2021-06-01 05:13:00 [facility] C-REACT[facility] PROTEIN 2021-06-01 05:13:00 Candida [facility] VITAMIN B12 AND FOLATE 2021-06-01 05:13:00 Candida [facility] APTT 2021-06-01 05:13:00 Stanford Marcum [facility] CBC W/PLT COUNT & AUTO 2021-06-01 05:13:[address] [facility] (CELLAVISION MANUAL 2021-06-01 05:13:00 Candida [facility] DIFF) [facility] APTT 2021-05-31 23:12:00 Stanford Marcum [facility] POCT-GLUCOSE METER 2021-05-31 22:24:00 Candida [facility] APTT 2021-05-31 22:18:00 Candida [facility] POCT-GLUCOSE METER 2021-05-31 17:11:00 [facility] SARS-COV2/RT-PCR ([facility] & 2021-05-31 15:04:00 Stanford Marcum [facility] REF LABS) [facility] APTT 2021-05-31 14:51:00 Candida [facility] CBC (HEMOGRAM ONLY) 2021-05-31 14:45:00 Candida [facility] BASIC METABOLIC PANEL 2021-05-31 14:45:00 Candida [facility] CARDIAC CATH REPORT - 2021-05-31 00:00:00 Sven Ambriz [facility] SCAN [facility] POCT-GLUCOSE METER 2020-11-11 15:50:00 Denny, [facility] POCT-GLUCOSE METER 2020-11-11 15:18:00 Eduin [facility] PERIPHERAL ANGIOS / 2020-11-11 12:39:00 Eduin [facility] AORTOGRAM [facility] CBC (HEMOGRAM ONLY) 2020-11-11 09:09:00 [facility] BASIC METABOLIC PANEL 2020-11-11 09:09:[address] [facility] () [facility] PROTHROMBIN TIME/INR 2020-11-11 09:09:00 [facility] APTT 2020-11-11 09:09:00 [facility] ECG 12-LEAD 2020-11-11 07:49:58 [facility] ECG 12-LEAD 2020-11-11 07:49:58 Unknown, Hl7 [facility] CARDIAC CATH REPORT - 2020-11-11 00:00:00 Provider, [facility] SCAN Scanning [facility] BASIC METABOLIC PANEL 2020-11-07 11:33:[address] [facility] () [facility] CBC W/PLT COUNT & AUTO 2020-11-07 11:33:[address] [facility] PROTHROMBIN TIME/INR 2020-11-07 11:33:00 [facility] CBC W/PLT COUNT & AUTO 2020-11-07 11:33:[address] [facility] (CELLAVISION MANUAL 2020-11-07 11:33:00 Eduin [facility] DIFF) [facility] SARS-COV2/RT-PCR ([facility] & 2020-11-07 11:10:[address] [facility] REF LABS) [facility] [place] ECG 12-LEAD 2020-11-07 10:39:57 Unknown, 7 [facility] ECG 12-LEAD 2020-11-07 10:39:57 Unknown, 7 [facility] XR FOOT 3 VIEWS RIGHT 2020-10-16 13:50:00 Aleksandr Duong [facility] XR FOOT 3 VIEWS RIGHT 2020-09-04 12:18:00 Aleksandr Duogn [facility] POCT-GLUCOSE METER 2020-07-05 11:02:00 Bandar [facility] POCT-GLUCOSE METER 2020-07-05 07:52[facility] & AUTO 2020-07-05 04:20:[address] [facility] BASIC METABOLIC PANEL 2020-07-05 04:20:00 Bandar [facility] (7[facility] [facility] (CELLAVISION MANUAL 2020-07-05 04:20:00 Bandar, OMID [facility] DIFF) [facility] CBC W/PLT COUNT & AUTO 2020-07-05 04:20:00 [facility]FFERENTIAL [facility] POCT-GLUCOSE METER 2020-07-04 21:24:00 Bandar [facility] POCT-GLUCOSE METER 2020-07-04 17:38:00 Bandar [facility] CBC W/PLT COUNT & AUTO 2020-07-04 15:02:00 [facility] BASIC METABOLIC PANEL 2020-07-04 15:02:[address] [facility] (7[facility] (CELLAVISION MANUAL 2020-07-04 15:02:00 Tirclayton, OMID [facility] DIFF) [facility] CBC W/PLT COUNT & AUTO 2020-07-04 15:02:00 OM[facility] APTT 2020-07-04 12:11:00 Jaiden No [facility] POCT-GLUCOSE METER 2020-07-04 12:09:00 [facility] POCT-GLUCOSE METER 2020-07-04 07:25:00 [facility] APTT 2020-07-04 04:37:00 [facility] APTT 2020-07-03 23:27:00 [facility] POCT-GLUCOSE METER 2020-07-03 21:06:00 [facility] POCT-GLUCOSE METER 2020-07-03 17:12:00 [facility] APTT 2020-07-03 15:25:00 [facility] APTT 2020-07-03 14:21:00 [facility] POCT-GLUCOSE METER 2020-07-03 12:08:00 [facility] POCT-GLUCOSE METER 2020-07-03 07:56:00 [facility] SARS-COV2/RT-PCR ([facility] & 2020-07-03 04:47:00 [facility] REF [facility] CBC (HEMOGRAM ONLY) 2020-07-03 04:09:00 Christian Sellers [facility] BASIC METABOLIC PANEL 2020-07-03 04:09:00 Christian Sellers [facility] ([address] [place] [address] APTT 2020-07-03 04:09:00 [facility] POCT-GLUCOSE METER 2020-07-02 17:42:00 Fernando Sellersmendon [facility] CBC (HEMOGRAM ONLY) 2020-07-02 17:31:00 [facility] VANCOMYCIN LEVEL, RANDOM 2020-07-02 15:53:00 [facility] POCT-GLUCOSE METER 2020-07-02 14:29:00 Christian Sellers [facility] TISSUE EXAM 2020-07-02 13:10:[address] [facility] AMPUTATION,TOE 2020-07-02 12:39:[address] [facility] POCT-GLUCOSE METER 2020-07-02 11:35:00 Christian Sellers [facility] ECG 12-LEAD 2020-07-02 11:28:39 Edward, Cong [facility] ECG 12-LEAD 2020-07-02 11:28:39 Unknown, Hl7 [facility] POCT-GLUCOSE METER 2020-07-02 07:52:00 Christian Sellers [facility] SARS-COV2/RT-PCR ([facility] & 2020-07-02 04:34:00 Christian Sellers [facility] REF LABS) [facility] APTT 2020-07-02 04:32:00 [facility] CBC W/PLT COUNT & AUTO 2020-07-02 02:44:00 Christian Sellers [facility] BASIC METABOLIC PANEL 2020-07-02 02:44:00 Christian Sellers [facility] (7) [facility] APTT 2020-07-02 02:44:00 [facility] (CELLAVISION MANUAL 2020-07-02 02:44:00 Christian Sellers [facility] DIFF) [facility] CBC W/PLT COUNT & AUTO 2020-07-02 02:44:00 Christian Sellers [facility] POCT-GLUCOSE METER 2020-07-01 23:07:00 Christian Sellers [facility] APTT 2020-07-01 17:35:00 [facility] POCT-GLUCOSE METER 2020-07-01 16:50:00 Christian Sellers [facility] APTT 2020-07-01 13:45:00 [facility] POCT-GLUCOSE METER 2020-07-01 11:56:00 [facility] Sellers [facility] POCT-GLUCOSE METER 2020-07-01 07:22:00 Marlo Marilynnrasheedjocelynn [facility] APTT 2020-07-01 05:24:00 [facility] CBC W/PLT COUNT & AUTO 2020-07-01 05:24:00 Christian Sellers [facility] BASIC METABOLIC PANEL 2020-07-01 05:24:00 Fernando Sellersmendon [facility] (7) [facility] VANCOMYCIN LEVEL, RANDOM 2020-07-01 05:24:00 Mino Hui [facility] HEPATIC FUNCTION PANEL 2020-07-01 05:24:00 Too Pino C [facility] (CELLAVISION MANUAL 2020-07-01 05:24:00 Christian Sellers [facility] CBC W/PLT COUNT & AUTO 2020-07-01 05:24:00 Christian Sellers [facility] POCT-GLUCOSE METER 2020-07-01 00:14:00 Marlo Fernandojocelynn Coreas [facility] APTT 2020-06-30 23:39:00 [facility] APTT 2020-06-30 16:01:00 [facility] APTT 2020-06-30 14:06:00 [facility] APTT 2020-06-30 13:27:00 [facility] POCT-GLUCOSE METER 2020-06-30 12:00:00 Fernando Sellersmendon [facility] POCT-GLUCOSE METER 2020-06-30 08:07:00 Christian Sellers [facility] APTT 2020-06-30 07:29:00 [facility] VANCOMYCIN LEVEL, RANDOM 2020-06-30 05:20:00 Mino Hui [facility] CBC W/PLT COUNT & AUTO 2020-06-30 05:20:00 MarloChristian [facility] BASIC METABOLIC PANEL 2020-06-30 05:20:00 MarloChristian [facility] (7) [facility] (CELLAVISION MANUAL 2020-06-30 05:20:00 Marlo Fernandomendon [facility] DIFF) [facility] CBC W/PLT COUNT & AUTO 2020-06-30 05:20:00 Marlo Fernandomendon [facility] APTT 2020-06-30 00:01:00 [facility] APTT 2020-06-29 21:53:00 [facility] POCT-GLUCOSE METER 2020-06-29 20:55:00 [facility] POCT-GLUCOSE METER 2020-06-29 17:07:00 Marlo Fernandomendon [facility] CBC (HEMOGRAM ONLY) 2020-06-29 13:52:00 [facility] APTT 2020-06-29 13:52:00 [facility] POCT-GLUCOSE METER 2020-06-29 12:02:00 [facility] POCT-GLUCOSE METER 2020-06-29 07:56:00 [facility] CBC W/PLT COUNT & AUTO 2020-06-29 06:48:00 Barbara Colón [facility] BASIC METABOLIC PANEL 2020-06-29 06:48:[address] [facility] () [facility] APTT 2020-06-29 06:48:00 [facility] MAGNESIUM 2020-06-29 06:48:00 Kaya Colvin [facility] (CELLAVISION MANUAL 2020-06-29 06:48:00 Barbara Colón [facility] CBC W/PLT COUNT & AUTO 2020-06-29 06:48:00 Barbara Colón [facility] APTT 2020-06-29 00:13:00 [facility] APTT 2020-06-28 21:37:00 [facility] POCT-GLUCOSE METER 2020-06-28 21:24:00 Christian Sellers [facility] VANCOMYCIN LEVEL, TROUGH 2020-06-28 20:04:00 Barbara Colón [facility] POCT-GLUCOSE METER 2020-06-28 17:31:00 Christian Sellers [facility] VENOGRAM 2020-06-28 14:56:00 Eli Denny [facility] APTT 2020-06-28 13:36:00 [facility] POCT-GLUCOSE METER 2020-06-28 11:40:00 Christian Sellers [facility] POCT-GLUCOSE METER 2020-06-28 07:39:00 Christian Sellers [facility] CBC W/PLT COUNT & AUTO 2020-06-28 04:37:00 Christian Sellers [facility] BASIC METABOLIC PANEL 2020-06-28 04:37:00 Christian Sellers [facility] (7) [facility] APTT 2020-06-28 04:37:00 [facility] (CELLAVISION MANUAL 2020-06-28 04:37:00 Christian Sellers [facility] CBC W/PLT COUNT & AUTO 2020-06-28 04:37:00 Christian Sellers [facility] POCT-GLUCOSE METER 2020-06-27 23:12:00 Christian Sellers [facility] APTT 2020-06-27 21:25:00 [facility] APTT 2020-06-27 18:32:00 [facility] POCT-GLUCOSE METER 2020-06-27 18:07:00 [facility] POCT-GLUCOSE METER 2020-06-27 11:55:00 [facility] AP[facility] 2020-06-27 11:47:00 [facility] POCT-GLUCOSE METER 2020-06-27 07:18:00 [facility] CBC W/PLT COUNT & AUTO 2020-06-27 05:36:00 [facility]OLIC PANEL 2020-06-27 05:36:00 [facility] Lyudmila [address] APTT 2020-06-27 05:36:00 [facility] (CELLAVISION MANUAL 2020-06-27 05:36:[facility] W/[facility]T COUNT & AUTO 2020-06-27 05:36:00 Marlo Marilynnrasheedmendon [facility] HC ARTERIAL DOPPLER LEGS 2020-06-27 00:18:00 [facility] APTT 2020-06-26 22:43:00 [facility] POCT-GLUCOSE METER 2020-06-26 17:33:00 [facility] CBC (HEMOGRAM ONLY) 2020-06-26 15:21:00 [facility] APTT 2020-06-26 15:21:00 [facility] POCT-GLUCOSE METER 2020-06-26 12:23:00 [facility] BASIC METABOLIC PANEL 2020-06-26 03:35:[address] HEMOGLOBIN A1C 2020-06-26 03:35:00 [facility] CBC W/PLT COUNT & AUTO 2020-06-26 03:35:00 [facility] C-REACTIVE PROTEIN 2020-06-26 03:35:00 [facility] VITAMIN B12 AND FOLATE 2020-06-26 03:35:00 [facility] (CELLAVISION MANUAL 2020-06-26 03:35:00 [facility] DIFF) [facility] CBC W/PLT COUNT & AUTO 2020-06-26 03:35:00 [facility] XR FOOT 3 VIEWS RIGHT 2020-06-25 23:30:00 [facility] VENOUS DOPPLER LEG, 2020-06-25 22:58:00 [facility] SARS-COV2/RT-PCR ([facility] & 2020-06-25 21:40:00 Oneal [facility] REF LABS) [facility] BLOOD CULTURE 2020-06-25 21:40:00 [facility] BLOOD CULTURE 2020-06-25 18:39:00 [facility] BLOOD CULTURE 2020-06-25 18:36:00 [facility] CBC W/PLT COUNT & AUTO 2020-06-25 18:36:00 Suri Chahal [facility] BASIC METABOLIC PANEL 2020-06-25 18:36:00 Suri Chahal CH I [facility] (7) [facility] LACTIC ACID, VENOUS 2020-06-25 18:36:00 [facility] PT/APTT 2020-06-25 18:36:00 Chahal [facility] C-REACTIVE PROTEIN 2020-06-25 18:36:00 Chahal [facility] (CELLAVISION MANUAL 2020-06-25 18:36:[address] [facility] DIFF) [facility] CBC W/PLT COUNT & AUTO 2020-06-25 18:36:[address] [facility] DIFFERENTIAL Medical Center CARDIAC CATH REPORT - 2020-06-25 00:00:00 Provider, Sven ANNE [facility] Arthro[facility] of [facility] knee<sup>1</sup> Procedure<sup>2</sup> [facility] Plan of Care Planned Activity Planned Date Details Comments Source Future Scheduled 2022-10-[address] [facility] Test 00:00:00 (Season Ended) [code Medical Center = INFLUENZA VACCINE (Season Ended)] Future Scheduled 2022-10-[address] [facility] Test 00:00:00 (Season Ended) [code Medical Center = Influenza Vaccine (Season Ended)] Future Scheduled 2022-03-17 Pneumococcal 65+ (1 [employer] Test 16:31:36 - PCV) [code = of Medicine Pneumococcal 65+ (1 - PCV)] Future Scheduled 2022-03-17 TETANUS SHOT (ADULT) [employer] Test 16:31:36 [code = TETANUS SHOT of Medi cine (ADULT)] Future Scheduled 2022-03-17 Hepatitis C [facility] [employer] Test 16:31:36 screening of Medicine (procedure) [code = 801215599] Future Scheduled 2022-03-17 ZOSTER VACCINE (1 of [employer] Test 16:31:36 2) [code = ZOSTER of Medicin e VACCINE (1 of 2)] Future Scheduled 2022-03-17 Annual Diabetic [facility] [employer] Test 16:31:36 Retinopathy of Medicine Screening [code = Annual Diabetic Retinopathy Screening] Future Scheduled 2022-03-17 Medicare Awv [facility] [employer] Test 16:31:36 (Initial) [code = of Medicin e Medicare Awv (Initial)] Future Scheduled 2022-03-17 COVID-19 Vaccine (4 [employer] Test 16:31:36 - Booster for Pfizer of Medi cine series) [code = COVID-19 Vaccine (4 - Booster for Pfizer series)] Future Scheduled 2022-03-17 BMI Follow Up Plan [employer] Test 16:31:36 [code = BMI Follow of Medici ne Up Plan] Future Scheduled 2022-03-17 FLU VACCINE > 6 [facility] Test 16:31:36 MONTHS [code = FLU of Medici ne VACCINE > 6 MONTHS] Future Scheduled 2022-03-17 Diabetic foot [facility] [employer] Test 16:31:36 examination of Medicine (regime/therapy) [code = 362092739] Future Scheduled 2022-03-17 Fall Screen [code = [employer] [facility] 16:31:36 Fall Screen] of Medicine Future Scheduled 2022-02-[address] [facility] Test 00:00:00 (12+) [code = Medical Center DEPRESSION SCREENING (12+)] Future Scheduled 2022-02-08 FALLS RISK SCREENING [facility] Test 00:00:00 [code = FALLS RISK Medical C enter SCREENING] Future Scheduled 2022-02-[address] [facility] Test 00:00:00 (12+) [code = Medical Center DEPRESSION SCREENING (12+)] Future Scheduled 2022-02-08 FALLS RISK SCREENING [facility] Test 00:00:00 [code = FALLS RISK Medical C enter SCREENING] Future Scheduled 2022-02-[address] [facility] Test 00:00:00 (12+) [code = Medical Center DEPRESSION SCREENING (12+)] Future Scheduled 2022-02-08 FALLS RISK SCREENING [facility] Test 00:00:00 [code = FALLS RISK Medical C enter SCREENING] Future Scheduled 2021-12-16 COVID-19 Vaccine [facility] Test 15:24:54 (#1) [code = of Medicine COVID-19 Vaccine (#1)] Future Scheduled 2021-12-16 Pneumococcal 65+ (1 [employer] Test 15:24:54 - PCV) [code = of Medicine Pneumococcal 65+ (1 - PCV)] Future Scheduled 2021-12-16 TETANUS SHOT (ADULT) [facility] Test 15:24:54 [code = TETANUS SHOT of Medi cine (ADULT)] Future Scheduled 2021-12-16 Hepatitis C [facility] [employer] Test 15:24:54 screening of Medicine (procedure) [code = 551905120] Future Scheduled 2021-12-16 ZOSTER VACCINE (1 of [facility] Test 15:24:54 2) [code = ZOSTER of Medicin e VACCINE (1 of 2)] Future Scheduled 2021-12-16 ANNUAL DIABETIC [facility] [employer] Test 15:24:54 RETINOPATHY of Medicine SCREENING [code = ANNUAL DIABETIC RETINOPATHY SCREENING] Future Scheduled 2021-12-16 MEDICARE IPPE [facility] [employer] Test 15:24:54 (WELCOME TO of Medicine MEDICARE) [code = MEDICARE IPPE (WELCOME TO MEDICARE)] Future Scheduled 2021-12-16 BMI FOLLOW UP PLAN [employer] Test 15:24:54 [code = BMI FOLLOW of Medici ne UP PLAN] Future Scheduled 2021-12-16 FLU VACCINE > 6 [facility] [employer] Test 15:24:54 MONTHS [code = FLU of Medici ne VACCINE > 6 MONTHS] Future Scheduled 2021-12-16 Diabetic foot [facility] [employer] Test 15:24:54 examination of Medicine (regime/therapy) [code = 804577867] Future Scheduled 2021-12-16 FALL SCREEN [code = [employer] Test 15:24:54 FALL SCREEN] of Medicine Future Scheduled 2021-11-[address] [facility] Test 00:00:00 Counseling and Medical Cente r Screening (12+) [code = Tobacco Cessation Counseling and Screening (12+)] Future Scheduled 2021-11-[address] [facility] Test 00:00:00 [facility]ing [facility] Medical Cente r Screening (12+) [code = Tobacco Cessation Counseling and Screening (12+)] Future Scheduled 2021-10-[address] [facility] Test 00:00:00 (Season Ended) [code Medical Center = INFLUENZA VACCINE (Season Ended)] Future Scheduled 2021-10-[address] [facility] Test 00:00:00 (#1) [code = Medical Center INFLUENZA VACCINE (#1)] Future Scheduled 2021-10-[address] [facility] Test 00:00:00 (#1) [code = Medical Center INFLUENZA VACCINE (#1)] Future Scheduled 2021-10-[address] [facility] Test 00:00:00 (#1) [code = Medical Center INFLUENZA VACCINE (#1)] Future Scheduled 2021-09-11 COVID-19 Vaccine [facility] Test 10:54:03 (#1) [code = of Medicine COVID-19 Vaccine (#1)] Future Scheduled 2021-09-11 Pneumococcal 65+ (1 [employer] Test 10:54:03 - PCV) [code = of Medicine Pneumococcal 65+ (1 - PCV)] Future Scheduled 2021-09-11 TETANUS SHOT (ADULT) [employer] Test 10:54:03 [code = TETANUS SHOT of Medi cine (ADULT)] Future Scheduled 2021-09-11 Hepatitis C [facility] [employer] Test 10:54:03 screening of Medicine (procedure) [code = 221160413] Future Scheduled 2021-09-11 ZOSTER VACCINE (1 of [facility] Test 10:54:03 2) [code = ZOSTER of Medicin e VACCINE (1 of 2)] Future Scheduled 2021-09-11 ANNUAL DIABETIC [facility] [employer] Test 10:54:03 RETINOPATHY of Medicine SCREENING [code = ANNUAL DIABETIC RETINOPATHY SCREENING] Future Scheduled 2021-09-11 MEDICARE AWV [facility] [employer] Test 10:54:03 (Initial) [code = of Medicin e MEDICARE AWV (Initial)] Future Scheduled 2021-09-11 BMI FOLLOW UP PLAN [facility] Test 10:54:03 [code = BMI FOLLOW of Medici ne UP PLAN] Future Scheduled 2021-09-11 FLU VACCINE > 6 [facility] Test 10:54:03 MONTHS [code = FLU of Medici ne VACCINE > 6 MONTHS] Future Scheduled 2021-09-11 Diabetic foot [facility] [employer] Test 10:54:03 examination of Medicine (regime/therapy) [code = 787339681] Future Scheduled 2021-09-11 FALL SCREEN [code = [employer] Test 10:54:03 FALL SCREEN] of Medicine Future Scheduled 2021-09-10 US ARTERIAL LEGS 1 Occurrences [facility] Test 15:19:43 BILATERAL [code = starting of Medicin e 20268-3] 09/10/2021 until 09/10/2022 Future Scheduled 2021-08-07 COVID-19 Vaccine [facility] [employer] Test 14:13:59 (#1) [code = of Medicine COVID-19 Vaccine (#1)] Future Scheduled 2021-08-07 Pneumococcal 65+ (1 [employer] Test 14:13:59 - PCV) [code = of Medicine Pneumococcal 65+ (1 - PCV)] Future Scheduled 2021-08-07 TETANUS SHOT (ADULT) [facility] [employer] Test 14:13:59 [code = TETANUS SHOT of Medi cine (ADULT)] Future Scheduled 2021-08-07 Diabetic foot [facility] [employer] Test 14:13:59 examination of Medicine (regime/therapy) [code = 593960780] Future Scheduled 2021-08-07 Hepatitis C [facility] [employer] Test 14:13:59 screening of Medicine (procedure) [code = 361580766] Future Scheduled 2021-08-07 ZOSTER VACCINE (1 of [facility] Test 14:13:59 2) [code = ZOSTER of Medicin e VACCINE (1 of 2)] Future Scheduled 2021-08-07 ANNUAL DIABETIC [facility] [employer] Test 14:13:59 RETINOPATHY of Medicine SCREENING [code = ANNUAL DIABETIC RETINOPATHY SCREENING] Future Scheduled 2021-08-07 BMI FOLLOW UP PLAN [facility] [employer] Test 14:13:59 [code = BMI FOLLOW of Medici ne UP PLAN] Future Scheduled 2021-08-07 FLU VACCINE > 6 [facility] Test 14:13:59 MONTHS [code = FLU of Medici ne VACCINE > 6 MONTHS] Future Scheduled 2021-08-07 MEDICARE AWV [facility] [employer] Test 14:13:59 (Initial) [code = of Medicin e MEDICARE AWV (Initial)] Future Scheduled 2021-08-07 FALL SCREEN [code = [facility] Test 14:13:59 FALL SCREEN] of Medicine Future Scheduled 2021-07-16 US ARTERIAL LEGS 1 Occurrences [facility] Test 10:22:07 BILATERAL [code = starting of Medicin e 96230-9] 07/16/2021 until 07/16/2022 Future Scheduled 2021-06-19 COVID-19 Vaccine (1) [facility] Test 13:37:29 [code = COVID-19 of Medicine Vaccine (1)] Future Scheduled 2021-06-19 TETANUS SHOT (ADULT) [facility] Test 13:37:29 [code = TETANUS SHOT of Medi cine (ADULT)] Future Scheduled 2021-06-19 Diabetic foot [facility] [employer] Test 13:37:29 examination of Medicine (regime/therapy) [code = 187200756] Future Scheduled 2021-06-19 Hepatitis C [facility] [employer] Test 13:37:29 screening of Medicine (procedure) [code = 437379233] Future Scheduled 2021-06-19 ZOSTER VACCINE (1 of [facility] Test 13:37:29 2) [code = ZOSTER of Medicin e VACCINE (1 of 2)] Future Scheduled 2021-06-19 Pneumococcal 65+ (1 [employer] Test 13:37:29 of 1 - PPSV23) [code of Medi cine = Pneumococcal 65+ (1 of 1 - PPSV23)] Future Scheduled 2021-06-19 ANNUAL DIABETIC [facility] Test 13:37:29 RETINOPATHY of Medicine SCREENING [code = ANNUAL DIABETIC RETINOPATHY SCREENING] Future Scheduled 2021-06-19 BMI FOLLOW UP PLAN [employer] Test 13:37:29 [code = BMI FOLLOW of Medici ne UP PLAN] Future Scheduled 2021-06-19 FLU VACCINE > 6 [facility] Test 13:37:29 MONTHS [code = FLU of Medici ne VACCINE > 6 MONTHS] Future Scheduled 2021-06-19 MEDICARE AWV [facility] Test 13:37:29 (Initial) [code = of Medicin e MEDICARE AWV (Initial)] Future Scheduled 2021-06-19 FALL SCREEN [code = [employer] Test 13:37:29 FALL SCREEN] of Medicine Future Scheduled 2021-06-12 US ARTERIAL LEG LEFT 1 Occurrences [employer] Test 13:18:29 [code = 52641] starting of Medicine 06/12/2021 until 06/11/2022 Future Scheduled 2020-12-[address] [address] [facility] Test 00:[facility]:00 measurement Medical Center (procedure) [code = 87729877] Future Scheduled 2020-12-[address] [facility] Test 00:[facility]:00 measurement Medical Center (procedure) [code = 95067025] Future Scheduled 2020-12-[address] [facility] [address] [facility] Test 00:[facility]:00 measurement Medical Center (procedure) [code = 30824437] Future Scheduled 2020-12-[address] [facility] [facility] Test 00:00:00 measurement Medical Center (procedure) [code = 61730254] Future Scheduled 2020-12-[address] Test 00:00:00 measurement Medical Center (procedure) [code = 43772861] Future Scheduled 2020-12-[address] [facility] Test 00:00:00 measurement Medical Center (procedure) [code = 34886884] Future Scheduled 2020-12-[address] [facility] 00[facility]00 [facility] (procedure) [code = 59730961] Future Scheduled 2020-12-02 COVID-19 Vaccine (1) [facility] Test 12:35:52 [code = COVID-19 of Medicine Vaccine (1)] Future Scheduled 2020-12-02 TETANUS SHOT (ADULT) [facility] Test 12:35:52 [code = TETANUS SHOT of Medi cine (ADULT)] Future Scheduled 2020-12-02 Diabetic foot [facility] [employer] Test 12:35:52 examination of Medicine (regime/therapy) [code = 607175108] Future Scheduled 2020-12-02 Hepatitis C [facility] [employer] Test 12:35:52 screening of Medicine (procedure) [code = 673919093] Future Scheduled 2020-12-02 ZOSTER VACCINE (1 of [facility] Test 12:35:52 2) [code = ZOSTER of Medicin e VACCINE (1 of 2)] Future Scheduled 2020-12-02 PNEUMOVAX >=65 [facility] [employer] Test 12:35:52 (PPSV23) [code = of Medicine PNEUMOVAX >=65 (PPSV23)] Future Scheduled 2020-12-02 ANNUAL DIABETIC [facility] Test 12:35:52 RETINOPATHY of Medicine SCREENING [code = ANNUAL DIABETIC RETINOPATHY SCREENING] Future Scheduled 2020-12-02 MEDICARE IPPE [facility] Test 12:35:52 (WELCOME TO of Medicine MEDICARE) [code = MEDICARE IPPE (WELCOME TO MEDICARE)] Future Scheduled 2020-12-02 FLU VACCINE > 6 [facility] Test 12:35:52 MONTHS [code = FLU of Medici ne VACCINE > 6 MONTHS] Future Scheduled 2020-12-02 BMI FOLLOW UP PLAN [facility] [employer] Test 12:35:52 [code = BMI FOLLOW of Medici ne UP PLAN] Future Scheduled 2020-12-02 FALL SCREEN [code = [facility] [place] Test 12:35:52 FALL SCREEN] of Medicine Future Scheduled 2020-11-27 COMPRESSION STOCKING Ordered: [facility] Test 13:57:18 15-20MM [code = 11/27/2020 of Medicine NOCPT] Future Scheduled 2020-11-27 US ARTERIAL LEGS 1 Occurrences [facility] Test 13:56:56 BILATERAL [code = starting of Medicin e 81961-4] 11/27/2020 until 11/27/2021 Future Scheduled 2020-11-01 COVID-19 Vaccine (1) [employer] Test 07:39:50 [code = COVID-19 of Medicine Vaccine (1)] Future Scheduled 2020-11-01 TETANUS SHOT (ADULT) [employer] Test 07:39:50 [code = TETANUS SHOT of Medi cine (ADULT)] Future Scheduled 2020-11-01 Diabetic foot [facility] [employer] Test 07:39:50 examination of Medicine (regime/therapy) [code = 361401859] Future Scheduled 2020-11-01 Hepatitis C [facility] [employer] Test 07:39:50 screening of Medicine (procedure) [code = 614735231] Future Scheduled 2020-11-01 ZOSTER VACCINE (1 of [employer] Test 07:39:50 2) [code = ZOSTER of Medicin e VACCINE (1 of 2)] Future Scheduled 2020-11-01 PNEUMOVAX >=65 [facility] [employer] Test 07:39:50 (PPSV23) [code = of Medicine PNEUMOVAX >=65 (PPSV23)] Future Scheduled 2020-11-01 ANNUAL DIABETIC [facility] [employer] Test 07:39:50 RETINOPATHY of Medicine SCREENING [code = ANNUAL DIABETIC RETINOPATHY SCREENING] Future Scheduled 2020-11-01 MEDICARE IPPE [facility] Test 07:39:50 (WELCOME TO of Medicine MEDICARE) [code = MEDICARE IPPE (WELCOME TO MEDICARE)] Future Scheduled 2020-11-01 FLU VACCINE > 6 [facility] [employer] Test 07:39:50 MONTHS [code = FLU of Medici ne VACCINE > 6 MONTHS] Future Scheduled 2020-11-01 BMI FOLLOW UP PLAN [employer] Test 07:39:50 [code = BMI FOLLOW of Medici ne UP PLAN] Future Scheduled 2020-11-01 FALL SCREEN [code = [employer] Test 07:39:50 FALL SCREEN] of Medicine Future Scheduled 2020-11-01 COVID-19 Vaccine (1) [employer] Test 07:39:50 [code = COVID-19 of Medicine Vaccine (1)] Future Scheduled 2020-11-01 TETANUS SHOT (ADULT) [employer] Test 07:39:50 [code = TETANUS SHOT of Medi cine (ADULT)] Future Scheduled 2020-11-01 Diabetic foot [facility] [employer] Test 07:39:50 examination of Medicine (regime/therapy) [code = 477605244] Future Scheduled 2020-11-01 Hepatitis C [facility] Test 07:39:50 screening of Medicine (procedure) [code = 660265387] Future Scheduled 2020-11-01 ZOSTER VACCINE (1 of [employer] Test 07:39:50 2) [code = ZOSTER of Medicin e VACCINE (1 of 2)] Future Scheduled 2020-11-01 PNEUMOVAX >=65 [facility] [employer] Test 07:39:50 (PPSV23) [code = of Medicine PNEUMOVAX >=65 (PPSV23)] Future Scheduled 2020-11-01 ANNUAL DIABETIC [facility] [employer] Test 07:39:50 RETINOPATHY of Medicine SCREENING [code = ANNUAL DIABETIC RETINOPATHY SCREENING] Future Scheduled 2020-11-01 MEDICARE IPPE [facility] Test 07:39:50 (WELCOME TO of Medicine MEDICARE) [code = MEDICARE IPPE (WELCOME TO MEDICARE)] Future Scheduled 2020-11-01 FLU VACCINE > 6 [facility] [employer] Test 07:39:50 MONTHS [code = FLU of Medici ne VACCINE > 6 MONTHS] Future Scheduled 2020-11-01 BMI FOLLOW UP PLAN [facility] [employer] Test 07:39:50 [code = BMI FOLLOW of Medici ne UP PLAN] Future Scheduled 2020-11-01 FALL SCREEN [code = [employer] Test 07:39:50 FALL SCREEN] of Medicine Future Scheduled 2020-10-30 COVID-19 Vaccine (1) [employer] Test 09:03:34 [code = COVID-19 of Medicine Vaccine (1)] Future Scheduled 2020-10-30 TETANUS SHOT (ADULT) [employer] Test 09:03:34 [code = TETANUS SHOT of Medi cine (ADULT)] Future Scheduled 2020-10-30 Diabetic foot [facility] [employer] Test 09:03:34 examination of Medicine (regime/therapy) [code = 158164850] Future Scheduled 2020-10-30 Hepatitis C [facility] Test 09:03:34 screening of Medicine (procedure) [code = 265455747] Future Scheduled 2020-10-30 ZOSTER VACCINE (1 of [employer] Test 09:03:34 2) [code = ZOSTER of Medicin e VACCINE (1 of 2)] Future Scheduled 2020-10-30 PNEUMOVAX >=65 [facility] [employer] Test 09:03:34 (PPSV23) [code = of Medicine PNEUMOVAX >=65 (PPSV23)] Future Scheduled 2020-10-30 ANNUAL DIABETIC [facility] [employer] Test 09:03:34 RETINOPATHY of Medicine SCREENING [code = ANNUAL DIABETIC RETINOPATHY SCREENING] Future Scheduled 2020-10-30 MEDICARE IPPE [facility] Test 09:03:34 (WELCOME TO of Medicine MEDICARE) [code = MEDICARE IPPE (WELCOME TO MEDICARE)] Future Scheduled 2020-10-30 FLU VACCINE > 6 [facility] [employer] Test 09:03:34 MONTHS [code = FLU of Medici ne VACCINE > 6 MONTHS] Future Scheduled 2020-10-30 BMI FOLLOW UP PLAN [facility] [employer] Test 09:03:34 [code = BMI FOLLOW of Medici ne UP PLAN] Future Scheduled 2020-10-30 FALL SCREEN [code = [facility] [place] Test 09:03:34 FALL SCREEN] of Medicine Future Scheduled 2020-10-30 COVID-19 Vaccine (1) [facility] Test 09:03:34 [code = COVID-19 of Medicine Vaccine (1)] Future Scheduled 2020-10-30 TETANUS SHOT (ADULT) [facility] Test 09:03:34 [code = TETANUS SHOT of Medi cine (ADULT)] Future Scheduled 2020-10-30 Diabetic foot [facility] Test 09:03:34 examination of Medicine (regime/therapy) [code = 450948068] Future Scheduled 2020-10-30 Hepatitis C [facility] [employer] Test 09:03:34 screening of Medicine (procedure) [code = 257913047] Future Scheduled 2020-10-30 ZOSTER VACCINE (1 of [employer] Test 09:03:34 2) [code = ZOSTER of Medicin e VACCINE (1 of 2)] Future Scheduled 2020-10-30 PNEUMOVAX >=65 [facility] [employer] Test 09:03:34 (PPSV23) [code = of Medicine PNEUMOVAX >=65 (PPSV23)] Future Scheduled 2020-10-30 ANNUAL DIABETIC [facility] Test 09:03:34 RETINOPATHY of Medicine SCREENING [code = ANNUAL DIABETIC RETINOPATHY SCREENING] Future Scheduled 2020-10-30 MEDICARE IPPE [facility] Test 09:03:34 (WELCOME TO of Medicine MEDICARE) [code = MEDICARE IPPE (WELCOME TO MEDICARE)] Future Scheduled 2020-10-30 FLU VACCINE > 6 [facility] [employer] Test 09:03:34 MONTHS [code = FLU of Medici ne VACCINE > 6 MONTHS] Future Scheduled 2020-10-30 BMI FOLLOW UP PLAN [employer] Test 09:03:34 [code = BMI FOLLOW of Medici ne UP PLAN] Future Scheduled 2020-10-30 FALL SCREEN [code = [employer] Test 09:03:34 FALL SCREEN] of Medicine Future Scheduled 2020-10-16 XR FOOT RIGHT 1 Occurrences [facility] [employer] Test 12:25:23 (COMPLETE) [code = [place] 138[address]-1] 10/16/2020 until 10/16/2021 Future Scheduled 2020-10-16 XR FOOT RIGHT 1 Occurrences [facility] [employer] Test 12:25:23 (COMPLETE) [code = [place] 25643-1] 10/16/2020 until 10/16/2021 Future Scheduled 2020-10-16 WOUND CARE Ordered: [facility] Test 12:24:46 INSTRUCTIONS [code = 10/16/2020 of [employer] [address]59] Future Scheduled 2020-10-16 WOUND CARE Ordered: [facility] Test 12:24:46 INSTRUCTIONS [code = 10/16/2020 of [employer] 90754] Future Scheduled 2020-10-16 WOUND CARE Ordered: [facility] Test 12:20:05 INSTRUCTIONS [code = 10/16/2020 of [employer] 15342] Future Scheduled 2020-10-16 WOUND CARE Ordered: [facility] Test 12:20:05 INSTRUCTIONS [code = 10/16/2020 of [employer] 46589] Future Scheduled 2020-10-[address] [facility] Test 00:00:00 (#1) [code = Medical Center INFLUENZA VACCINE (#1)] Future Scheduled 2020-10-04 COVID-19 Vaccine (1) [facility] Test 12:36:13 [code = COVID-19 of Medicine Vaccine (1)] Future Scheduled 2020-10-04 TETANUS SHOT (ADULT) [facility] Test 12:36:13 [code = TETANUS SHOT of [employer] (ADULT)] Future Scheduled 2020-10-04 Diabetic foot [facility] Test 12:36:13 examination of Medicine (regime/therapy) [code = 850793389] Future Scheduled 2020-10-04 Hepatitis C [facility] Test 12:36:13 screening of Medicine (procedure) [code = 085083900] Future Scheduled 2020-10-04 ZOSTER VACCINE (1 of [facility] Test 12:36:13 2) [code = ZOSTER of Medicin e VACCINE (1 of 2)] Future Scheduled 2020-10-04 PNEUMOVAX >=65 [facility] [employer] Test 12:36:13 (PPSV23) [code = of Medicine PNEUMOVAX >=65 (PPSV23)] Future Scheduled 2020-10-04 ANNUAL DIABETIC [facility] Test 12:36:13 RETINOPATHY of Medicine SCREENING [code = ANNUAL DIABETIC RETINOPATHY SCREENING] Future Scheduled 2020-10-04 MEDICARE IPPE [facility] Test 12:36:13 (WELCOME TO of Medicine MEDICARE) [code = MEDICARE IPPE (WELCOME TO MEDICARE)] Future Scheduled 2020-10-04 FLU VACCINE > 6 [facility] [employer] Test 12:36:13 MONTHS [code = FLU of Medici ne VACCINE > 6 MONTHS] Future Scheduled 2020-10-04 BMI FOLLOW UP PLAN [facility] [employer] Test 12:36:13 [code = BMI FOLLOW of Medici ne UP PLAN] Future Scheduled 2020-10-04 FALL SCREEN [code = [facility] [place] Test 12:36:13 FALL SCREEN] of Medicine Future Scheduled 2020-10-03 US ARTERIAL LEG 1 Occurrences [facility] Test 14:20:41 RIGHT [code = 17837] starting of [employer] 10/03/2020 until 10/03/2021 Future Scheduled 2020-10-03 WOUND CARE Ordered: [facility] Test 14:18:36 INSTRUCTIONS [code = 10/03/2020 of [employer] 17097] Future Scheduled 2020-10-03 XR FOOT RIGHT 2 1 Occurrences [facility] Test 14:02:12 VIEWS STANDING [code starting of [employer] = 39302] 10/03/2020 until 10/03/2021 Future Scheduled 2020-10-03 XR FOOT RIGHT AP AND 1 Occ[facility]rences [employer] Test 14:02:12 LATERAL [code = starting of Medicine 36475-8] 10/03/2020 until 10/03/2021 Future Scheduled 2020-10-01 COVID-19 Vaccine (1) [employer] Test 14:09:03 [code = COVID-19 of Medicine Vaccine (1)] Future Scheduled 2020-10-01 TETANUS SHOT (ADULT) [employer] Test 14:09:03 [code = TETANUS SHOT of Medi cine (ADULT)] Future Scheduled 2020-10-01 Diabetic foot [facility] [employer] Test 14:09:03 examination of Medicine (regime/therapy) [code = 543866267] Future Scheduled 2020-10-01 Hepatitis C [facility] Test 14:09:03 screening of Medicine (procedure) [code = 604223568] Future Scheduled 2020-10-01 ZOSTER VACCINE (1 of [facility] Test 14:09:03 2) [code = ZOSTER of Medicin e VACCINE (1 of 2)] Future Scheduled 2020-10-01 PNEUMOVAX >=65 [facility] [employer] Test 14:09:03 (PPSV23) [code = of Medicine PNEUMOVAX >=65 (PPSV23)] Future Scheduled 2020-10-01 ANNUAL DIABETIC [facility] Test 14:09:03 RETINOPATHY of Medicine SCREENING [code = ANNUAL DIABETIC RETINOPATHY SCREENING] Future Scheduled 2020-10-01 MEDICARE IPPE [facility] Test 14:09:03 (WELCOME TO of Medicine MEDICARE) [code = MEDICARE IPPE (WELCOME TO MEDICARE)] Future Scheduled 2020-10-01 FLU VACCINE > 6 [facility] [employer] Test 14:09:03 MONTHS [code = FLU of Medici ne VACCINE > 6 MONTHS] Future Scheduled 2020-10-01 BMI FOLLOW UP PLAN [facility] [employer] Test 14:09:03 [code = BMI FOLLOW of Medici ne UP PLAN] Future Scheduled 2020-10-01 FALL SCREEN [code = [facility] [place] Test 14:09:03 FALL SCREEN] of Medicine Future Scheduled 2020-09-05 COVID-19 Vaccine (1) [employer] Test 11:08:02 [code = COVID-19 of Medicine Vaccine (1)] Future Scheduled 2020-09-05 TETANUS SHOT (ADULT) [employer] Test 11:08:02 [code = TETANUS SHOT of Medi cine (ADULT)] Future Scheduled 2020-09-05 Diabetic foot [facility] [employer] Test 11:08:02 examination of Medicine (regime/therapy) [code = 214877749] Future Scheduled 2020-09-05 Hepatitis C [facility] Test 11:08:02 screening of Medicine (procedure) [code = 842404034] Future Scheduled 2020-09-05 ZOSTER VACCINE (1 of [facility] Test 11:08:02 2) [code = ZOSTER of Medicin e VACCINE (1 of 2)] Future Scheduled 2020-09-05 PNEUMOVAX >=65 [facility] [employer] Test 11:08:02 (PPSV23) [code = of Medicine PNEUMOVAX >=65 (PPSV23)] Future Scheduled 2020-09-05 ANNUAL DIABETIC [facility] [employer] Test 11:08:02 RETINOPATHY of Medicine SCREENING [code = ANNUAL DIABETIC RETINOPATHY SCREENING] Future Scheduled 2020-09-05 MEDICARE IPPE [facility] Test 11:08:02 (WELCOME TO of Medicine MEDICARE) [code = MEDICARE IPPE (WELCOME TO MEDICARE)] Future Scheduled 2020-09-05 FLU VACCINE > 6 [facility] [employer] Test 11:08:02 MONTHS [code = FLU of Medici ne VACCINE > 6 MONTHS] Future Scheduled 2020-09-05 BMI FOLLOW UP PLAN [facility] [employer] Test 11:08:02 [code = BMI FOLLOW of Medici ne UP PLAN] Future Scheduled 2020-09-05 FALL SCREEN [code = [facility] or [facility] Test 11:08:02 FALL SCREEN] of Medicine Future Scheduled 2020-09-04 XR FOOT RIGHT 1 Occurrences [facility] [employer] Test 11:12:34 (COMPLETE) [code = [place] [address]-2] 09/04/2020 until 09/04/2021 Future Scheduled 2020-09-02 COVID-19 Vaccine (1) [facility] Test 21:21:23 [code = COVID-19 of Medicine Vaccine (1)] Future Scheduled 2020-09-02 TETANUS SHOT (ADULT) [facility] Test 21:21:23 [code = TETANUS SHOT of Medi cine (ADULT)] Future Scheduled 2020-09-02 Diabetic foot [facility] Test 21:21:23 examination of Medicine (regime/therapy) [code = 441058364] Future Scheduled 2020-09-02 Hepatitis C [facility] Test 21:21:23 screening of Medicine (procedure) [code = 272507462] Future Scheduled 2020-09-02 ZOSTER VACCINE (1 of [facility] [employer] Test 21:21:23 2) [code = ZOSTER of Medicin e VACCINE (1 of 2)] Future Scheduled 2020-09-02 PNEUMOVAX >=65 [facility] Test 21:21:23 (PPSV23) [code = of Medicine PNEUMOVAX >=65 (PPSV23)] Future Scheduled 2020-09-02 ANNUAL DIABETIC [facility] Test 21:21:23 RETINOPATHY of Medicine SCREENING [code = ANNUAL DIABETIC RETINOPATHY SCREENING] Future Scheduled 2020-09-02 MEDICARE IPPE [facility] Test 21:21:23 (WELCOME TO of Medicine MEDICARE) [code = MEDICARE IPPE (WELCOME TO MEDICARE)] Future Scheduled 2020-09-02 FLU VACCINE > 6 [facility] Test 21:21:23 MONTHS [code = FLU of Medici ne VACCINE > 6 MONTHS] Future Scheduled 2020-09-02 BMI FOLLOW UP PLAN [facility] [employer] Test 21:21:23 [code = BMI FOLLOW of Medici ne UP PLAN] Future Scheduled 2020-09-02 FALL SCREEN [code = [employer] Test 21:21:23 FALL SCREEN] of Medicine Future Scheduled 2020-08-07 COVID-19 Vaccine (1) [facility] [employer] Test 10:20:20 [code = COVID-19 of Medicine Vaccine (1)] Future Scheduled 2020-08-07 TETANUS SHOT (ADULT) [facility] [employer] Test 10:20:20 [code = TETANUS SHOT of Medi cine (ADULT)] Future Scheduled 2020-08-07 Diabetic foot [facility] Test 10:20:20 examination of Medicine (regime/therapy) [code = 453242435] Future Scheduled 2020-08-07 Hepatitis C [facility] Test 10:20:20 screening of Medicine (procedure) [code = 887143242] Future Scheduled 2020-08-07 ZOSTER VACCINE (1 of [employer] Test 10:20:20 2) [code = ZOSTER of Medicin e VACCINE (1 of 2)] Future Scheduled 2020-08-07 PNEUMOVAX >=65 [facility] [employer] Test 10:20:20 (PPSV23) [code = of Medicine PNEUMOVAX >=65 (PPSV23)] Future Scheduled 2020-08-07 ANNUAL DIABETIC [facility] Test 10:20:20 RETINOPATHY of Medicine SCREENING [code = ANNUAL DIABETIC RETINOPATHY SCREENING] Future Scheduled 2020-08-07 MEDICARE IPPE [facility] Test 10:20:20 (WELCOME TO of Medicine MEDICARE) [code = MEDICARE IPPE (WELCOME TO MEDICARE)] Future Scheduled 2020-08-07 FLU VACCINE > 6 [facility] Test 10:20:20 MONTHS [code = FLU of Medici ne VACCINE > 6 MONTHS] Future Scheduled 2020-08-07 BMI FOLLOW UP PLAN [facility] [employer] Test 10:20:20 [code = BMI FOLLOW of Medici ne UP PLAN] Future Scheduled 2020-08-07 FALL SCREEN [code = [employer] Test 10:20:20 FALL SCREEN] of Medicine Future Scheduled 2020-08-07 US ARTERIAL LEG 1 Occurrences [facility] [employer] Test 09:52:01 RIGHT [code = 66946] starting of Medi cine 08/07/2020 until 08/07/2021 Future Scheduled 2020-08-06 COVID-19 Vaccine (1) [facility] [employer] Test 08:20:27 [code = COVID-19 of Medicine Vaccine (1)] Future Scheduled 2020-08-06 TETANUS SHOT (ADULT) [employer] Test 08:20:27 [code = TETANUS SHOT of Medi cine (ADULT)] Future Scheduled 2020-08-06 Diabetic foot [facility] Test 08:20:27 examination of Medicine (regime/therapy) [code = 330397873] Future Scheduled 2020-08-06 Hepatitis C [facility] Test 08:20:27 screening of Medicine (procedure) [code = 937628786] Future Scheduled 2020-08-06 ZOSTER VACCINE (1 of [employer] Test 08:20:27 2) [code = ZOSTER of Medicin e VACCINE (1 of 2)] Future Scheduled 2020-08-06 FALL SCREEN [code = [employer] Test 08:20:27 FALL SCREEN] of Medicine Future Scheduled 2020-08-06 PNEUMOVAX >=65 [facility] Test 08:20:27 (PPSV23) [code = of Medicine PNEUMOVAX >=65 (PPSV23)] Future Scheduled 2020-08-06 ANNUAL DIABETIC [facility] Test 08:20:27 RETINOPATHY of Medicine SCREENING [code = ANNUAL DIABETIC RETINOPATHY SCREENING] Future Scheduled 2020-08-06 MEDICARE IPPE [facility] Test 08:20:27 (WELCOME TO of Medicine MEDICARE) [code = MEDICARE IPPE (WELCOME TO MEDICARE)] Future Scheduled 2020-08-06 FLU VACCINE > 6 [facility] Test 08:20:27 MONTHS [code = FLU of Medici ne VACCINE > 6 MONTHS] Future Scheduled 2020-08-06 BMI FOLLOW UP PLAN [employer] Test 08:20:27 [code = BMI FOLLOW of Medici ne UP PLAN] Future Scheduled 2020-08-02 BMI FOLLOW UP PLAN [employer] Test 11:29:43 [code = BMI FOLLOW of Medici ne UP PLAN] Future Scheduled 2020-08-02 COVID-19 Vaccine (1) [employer] Test 08:17:30 [code = COVID-19 of Medicine Vaccine (1)] Future Scheduled 2020-08-02 TETANUS SHOT (ADULT) [employer] Test 08:17:30 [code = TETANUS SHOT of Medi cine (ADULT)] Future Scheduled 2020-08-02 Diabetic foot [facility] Test 08:17:30 examination of Medicine (regime/therapy) [code = 278475978] Future Scheduled 2020-08-02 Hepatitis C [facility] Test 08:17:30 screening of Medicine (procedure) [code = 366457148] Future Scheduled 2020-08-02 ZOSTER VACCINE (1 of [employer] Test 08:17:30 2) [code = ZOSTER of Medicin e VACCINE (1 of 2)] Future Scheduled 2020-08-02 FALL SCREEN [code = [facility] Test 08:17:30 FALL SCREEN] of Medicine Future Scheduled 2020-08-02 PNEUMOVAX >=65 [facility] Test 08:17:30 (PPSV23) [code = of Medicine PNEUMOVAX >=65 (PPSV23)] Future Scheduled 2020-08-02 ANNUAL DIABETIC [facility] Test 08:17:30 RETINOPATHY of Medicine SCREENING [code = ANNUAL DIABETIC RETINOPATHY SCREENING] Future Scheduled 2020-08-02 MEDICARE IPPE [facility] Test 08:17:30 (WELCOME TO of Medicine MEDICARE) [code = MEDICARE IPPE (WELCOME TO MEDICARE)] Future Scheduled 2020-08-02 FLU VACCINE > 6 [facility] Test 08:17:30 MONTHS [code = [...] [facility] Test 00:00:00 protein (procedure) Medical Center [code = 046672493] Future Scheduled 2018-01-30 Urine screening for [facility] Test 00:00:00 protein (procedure) Medical Center [code = 914828086] Future Scheduled 2018-01-30 Urine screening for [facility] Test 00:00:00 protein (procedure) Medical Center [code = 850004057] Future Scheduled 2018-01-30 Urine screening for [facility] Test 00:00:00 protein (procedure) Medical Center [code = 197945192] Future Scheduled 2018-01-30 Urine screening for [facility] Test 00:00:00 protein (procedure) Medical Center [code = 320702110] Future Scheduled 2018-01-30 Urine screening for [facility] Test 00:00:00 protein (procedure) Medical Center [code = 672481158] Future Scheduled 2018-01-30 Urine screening for [facility] Test 00:00:00 protein (procedure) Medical Center [code = 025475502] Future Scheduled 2017-02-[address] [...] 00:00:00 (1 of 1 - Medical Center [id number]) [code = PNEUMOCOCCAL 65+ YRS (1 of 1 - [id number] PCV13)] Future Scheduled 2008-06-12 PNEUMOCOCCAL 65+ YRS [...] Medical Jordi ter VACCINE (1)] Future Scheduled [address] [facility] Test 00:00:00 Counseling and Medical Cente r Screening (12+) [code = Tobacco Cessation Counseling and Screening (12+)] Future Scheduled [address] [facility] Test 00:00:00 Counseling and Medical Cente r Screening (12+) [code = Tobacco Cessation Counseling and Screening (12+)] Future Scheduled 1953-06-[address] DI[address] EYE EXAM [facility] Test 00:00:00 [code = DIABETIC EYE Medical Center EXAM] Future Scheduled 1953-06-[address] [facility] examination Medical Center (regime/therapy) [code = 271337458] Future Scheduled 1953-06-[address] DIABETIC EYE EXAM [facility] Test 00:00:00 [code = DIABETIC EYE Medical Center EXAM] Future Scheduled 1953-06-[address] [facility] Test 00:[facility]:00 examination Medical Center (regime/therapy) [code = 534006813] Future Scheduled 1953-06-[address] DIABETIC EYE EXAM [facility] Test 00:00:00 [code = DIABETIC EYE Medical Center EXAM] Future Scheduled 1953-06-[address] [facility] Test 00:00:00 examination Medical Center (regime/therapy) [code = 298156741] Future Scheduled 1953-06-[address] DIABETIC EYE EXAM [facility] Test 00:00:00 [code = DIABETIC EYE Medical Center EXAM] Future Scheduled 1953-06-[address] [facility] Test 00:00:00 examination Medical Center (regime/therapy) [code = 601263366] Future Scheduled 1953-06-[address] DIABETIC EYE EXAM [facility] Test 00:00:00 [code = DIABETIC EYE Medical Center EXAM] Future Scheduled 1953-06-[address] [facility] Test 00:00:00 examination Medical Center (regime/therapy) [code = 186784244] Future Scheduled 1953-06-[address] DIABETIC EYE EXAM [facility] Test 00:00:00 [code = DIABETIC EYE Medical Center EXAM] Future Scheduled 1953-06-[address] [facility] Test 00:00:00 examination Medical Center (regime/therapy) [code = 267116645] Future Scheduled 1953-06-[address] DIABETIC EYE EXAM [facility] Test 00:00:00 [code = DIABETIC EYE Medical Center EXAM] Future Scheduled 1953-06-[address] [facility] Test 00:00:00 examination Medical Center (regime/therapy) [code = 726862327] Future Scheduled 1949-06-12 PNEUMOCOCCAL 65+ YRS [facility] Test 00:00:00 (1 - PCV) [code = Medical Ce nter PNEUMOCOCCAL 65+ YRS (1 - PCV)] Future Scheduled 1949-06-12 PNEUMOCOCCAL 65+ YRS [facility] 00:00:00 (1 - PCV) [code = Medical Ce nter PNEUMOCOCCAL 65+ YRS (1 - PCV)] Future Scheduled 1949-06-12 PNEUMOCOCCAL 65+ YRS [facility] 00:00:00 (1 - PCV) [code = Medical Ce nter PNEUMOCOCCAL 65+ YRS (1 - PCV)] Future Scheduled 1949-06-12 PNEUMOCOCCAL 65+ YRS [facility] 00:00:00 (1 - PCV) [code = Medical Ce nter PNEUMOCOCCAL 65+ YRS (1 - PCV)] Future Scheduled 1949-06-12 PNEUMOCOCCAL 65+ YRS [facility] 00:00:00 (1 - PCV) [code = Medical Ce nter PNEUMOCOCCAL 65+ YRS (1 - PCV)] Future Scheduled 1948-06-12 COVID-19 VACCINE (1) [facility] 00:00:00 [code = COVID-[address] VACCINE (1)] Future Scheduled 1943 COVID-[address] [facility] 00:00:00 (#1) [code = Medical Center COVID-19 VACCINE (#1)] Future Scheduled 1943 COVID-[address] [facility] 00:00:00 (#1) [code = Medical Center COVID-19 VACCINE (#1)] Future Scheduled 1943 COVID-[address] [facility] 00:00:00 (#1) [code = Medical Center COVID-19 VACCINE (#1)] Future Scheduled 1943 COVID-[address] [facility] 00:00:00 (#1) [code = Medical Center COVID-19 VACCINE (#1)] Future Scheduled 1943 COVID-[address] [facility] 00:00:00 (#1) [code = Medical Center COVID-19 VACCINE (#1)] Encounters Start End Encounter Admission Attending Care Care Encounter Source Date/Time Date/Time Type Type Clinicians Facility Department ID 2022-07-21 2022-07-21 Outpatient ROMMEL LARSON [facility] [id number] [facility] 00:00:00 00:00:00 [place] [facility] 2022-02-25 2022-02-25 Office ROMMEL DUONG 1.2.840.114 [id number] [facility] 08:30:06 16:52:52 Visit ALEKSANDR AMBULATOR 350.1.13.21 College Y 0.2.7.2.686 [id number] [facility] 825 e 2021-12-17 2021-12-17 Outpatient [facility] [id number] [facility] 13:20:00 16:12:26 Abhay muir of Medicin e 2021-12-17 2021-12-17 Outpatient ROMMEL DENNY BCM [id number] [facility] 13:20:22 13:20:22 ELI [employer] [employer] 2021-11-20 2021-11-20 Office ROMMEL Duong 1.2.840.114 [id number] [facility] 14:30:00 15:19:34 Visit Aleksandrjefe Cross AMBULATOR 350.1.13.21 College Y 0.2.7.2.686 of [id number] [facility] perla 825 e 2021-09-10 2021-09-10 Office Eduin [facility] 1.2.840.114 [id number] [facility] 15:00:00 15:27:28 Visit Eli AMBULATOR 350.1.13.21 College Y 0.2.7.2.686 of [id number] [facility] 825 e 2021-09-10 2021-09-10 Outpatient [facility] [id number] [facility] 13:14:31 13:14:31 [facility] [employer] [employer] 2021-07-16 2021-07-16 Office ROMMEL Duong 1.2.840.114 [id number] [facility] 09:45:00 10:33:24 Visit Aleksandrjefe Cross AMBULATOR 350.1.13.21 College Y 0.2.7.2.686 of [id number] [facility] 825 e 2021-06-12 2021-06-12 Outpatient [facility] [id number] [facility] 13:49:56 15:09:32 Colleg e [facility] Medicin e 2021-06-12 2021-06-12 Office ROMMEL DUONG 1.2.840.114 [id number] [facility] 12:17:44 13:54:09 Visit ALEKSANDR AMBULATOR 350.1.13.21 College Y 0.2.7.2.686 of [id number] [facility] perla 825 e 2021-05-31 2021-06-05 [facility] Anuj Pascal Navistacey [facility] [id number] [facility] 11:58:00 17:01:00 Encounter Sonia Mo, [facility] 2021-05-31 2021-06-05 Inpatient UR WYATT, [facility] Surgery [id number] [facility] 11:58:00 17:01:00 MRINALINI 2021-06-04 2021-06-[address] [facility] [id number] 12:00:00 14:05:00 Aleksandr [facility] 2021-06-04 2021-06-04 Anesthesia Edwrad, [facility] [id number] 12:27:00 13:30:00 Event [facility] 2021-06-03 2021-06-[address] [facility] [id number] 07:30:00 10:13:00 [facility] 2020-11-27 2020-11-27 Office DennyROMMEL 1.2.840.114 [id number] [facility] 13:12:32 14:05:32 Visit Eli AMBULATOR 350.1.13.21 College Y 0.2.7.2.686 [id number] [facility] 825 e 2020-11-27 2020-11-27 Outpatient BCM [facility] [id number] [facility] 10:48:51 13:45:39 Colleg e [facility] Medicin e 2020-11-11 2020-11-11 Outpatient [facility] [id number] [facility] 00:00:00 23:59:00 Colleg e [facility] Medicin e 2020-11-11 2020-11-11 [facility] Eduin [facility] [id number] 07:29:00 17:16:00 Encounter [facility] 2020-11-11 2020-11-11 Outpatient [facility] DENNY [facility] Surgery [id number] [facility] 07:29:00 17:16:00 ELI 2020-11-11 2020-11-[address] [facility] [id number] 14:05:00 16:39:00 [facility] 2020-11-07 2020-11-07 Office [facility] Denny Cainmarilou [facility] [id number] 11:45:00 12:00:00 Visit Sunny Nia Kelley [facility] 2020-11-07 2020-11-07 Outpatient EL SLE [facility] [id number] [facility] 00:00:00 00:00:00 2020-11-07 2020-11-[address] [facility] [id number] 00:00:00 00:00:00 [facility] 2020-10-30 2020-10-30 Office DennyMALENA 1.2.840.114 [id number] [facility] 08:31:33 08:46:33 Visit Eli AMBULATOR 350.1.13.21 College Y 0.2.7.2.686 of [id number] [facility] perla 825 e 2020-10-30 2020-10-30 Outpatient ROMMEL DUONG [facility] [id number] [facility] 08:31:57 08:31:57 ALEKSANDR Blank e of Medicin e 2020-10-24 2020-10-25 Outpatient [facility] [id number] [facility] 14:55:13 08:48:45 Colleadolfo e of Medicin e 2020-10-16 2020-10-16 [facility] [id number] 13:03:24 23:59:00 Encounter Aleksandr [facility] 2020-10-16 2020-10-16 Office ROMMEL Duong 1.2.840.114 [id number] [facility] 11:14:16 12:32:32 Visit Aleksandr Cross AMBULATOR 350.1.13.21 College Y 0.2.7.2.686 of [id number] [facility] perla 825 e 2020-10-16 2020-10-16 Outpatient [facility] SLE [id number] [facility] 00:00:00 00:00:00 ALEKSANDR 2020-10-16 2020-10-16 Outside [facility] [id number] 00:00:00 00:00:00 Orders Aleksandr Cross [facility] 2020-10-03 2020-10-03 Office Rhoda [facility] 1.2.840.114 [id number] [facility] 12:47:24 14:32:56 Visit Aleksandrjefe Cross AMBULATOR 350.1.13.21 College Y 0.2.7.2.686 of [id number] [facility] 825 e 2020-09-04 2020-09-04 [facility] [id number] 11:50:00 23:59:00 Encounter [facility] 2020-09-04 2020-09-04 Office ROMMEL Duong 1.2.840.[id number] [place] [address] 10:11:54 11:24:16 Visit Aleksandrjefe Cross AMBULATOR 350.1.13.21 College Y 0.2.7.2.686 of [id number] [facility] 825 e 2020-09-04 2020-09-[address] [facility] [id number] [facility] 00:00:00 00:00:00 ALEKSANDR 2020-09-04 2020-09-04 Outside [facility] [id number] 00:00:00 00:00:00 Orders [facility] 2020-08-21 2020-08-21 Office MALENA DuongM 1.2.840.114 [id number] 10:04:48 11:02:48 Visit Aleksandrjefe Cross AMBULATOR 350.1.13.21 Y 0.2.7.2.686 [id number] [facility] 2020-08-21 2020-08-21 Office ROMMEL Duong 1.2.840.[id number] [place] [address] 10:04:48 11:02:48 Visit Aleksandrjefe Cross AMBULATOR 350.1.13.21 College Y 0.2.7.2.686 of [id number] [facility] 825 e 2020-08-07 2020-08-07 Office Rhoda BCTracy 1.2.840.114 [id number] 09:18:28 10:13:08 Visit Aleksandr Cross AMBULATOR 350.1.13.21 Y 0.2.7.2.686 [id number] 2020-08-07 2020-08-07 Office ROMMEL Duong 1.2.840.114 [id number] [facility] 09:18:28 10:13:08 Visit Aleksandr Cross AMBULATOR 350.1.13.21 College Y 0.2.7.2.686 of [id number] [facility] 825 e 2020-08-07 2020-08-07 Office ROMMEL Denny 1.2.840.114 [id number] 09:18:00 09:33:00 Visit Eli AMBULATOR 350.1.13.21 Y 0.2.7.2.686 [id number] [facility] 2020-08-07 2020-08-07 Office ROMMEL Denny 1.2.840.114 [id number] [facility] 09:18:00 09:33:00 Visit Eli AMBULATOR 350.1.13.21 College Y 0.2.7.2.686 of [id number] [facility] 825 e 2020-07-25 2020-07-25 Office ROMMEL Kaur [id number] [id number] 10:24:58 11:19:37 Visit Peg AMBULATOR 350.1.13.21 Raejoy Y 0.2.7.2.686 [id number] [facility] 2020-07-25 2020-07-25 Office ROMMEL Kaur [id number] [id number] [facility] 10:24:58 11:19:37 Visit Peg AMBULATOR 350.1.13.21 College Raejoy Y 0.2.7.2.686 of [id number] [facility] 825 e 2020-07-17 2020-07-17 Office ROMMEL Duong 1.2.840.114 [id number] 09:14:49 10:09:41 Visit Aleksandr Cross AMBULATOR 350.1.13.21 Y 0.2.7.2.686 [id number] [facility] 2020-07-17 2020-07-17 Office ROMMEL Duong 1.2.840.114 [id number] [facility] 09:14:49 10:09:41 Visit Aleksandr Cross AMBULATOR 350.1.13.21 College Y 0.2.7.2.686 of [id number] [facility] 825 e 2020-06-25 2020-07-05 Hospital ER Suri Chahal [facility] [id number] 16:34:00 16:36:00 Encounter Herbert Saenz [facility] 2020-07-02 2020-07-02 Surgery Rhoda, [facility] [id number] 12:35:00 14:40:00 Aleksandrjefe Cross [facility] 2020-07-02 2020-07-02 Anesthesia Ijeoma, [facility] [id number] 12:53:00 13:53:00 Event Veeral [facility] 2020-07-02 2020-07-[address] [facility] [id number] 00:00:00 00:00:00 Only [facility] 2020-06-28 2020-06-28 Surgery Denny, [facility] [id number] 19:05:00 22:10:00 [facility] 2020-06-26 2020-06-[address] [facility] [id number] [facility] 00:[facility]:00 00:00:00 [facility] 2020-06-25 2020-06-25 Emergency ER SLE Emergency [id number] SLE 15:48:00 15:48:00 2016-09-11 2016-09-12 [facility] [id number] [facility] 15:41:00 21:00:00 Outpatient r Tino [address] [place] [address] 2016-09-11 2016-09-12 Bedded nullFlavo [facility] [id number] [facility] 15:41:00 21:00:00 Outpatient mandi Jiménez [address] [place] [address] 2016-09-11 2016-09-12 Outpatient Jacquelin [facility] [id number] 10:41:00 16:00:00 Eddie 2014-03-06 2014-03-06 OBS Day nullFlavo [facility] [id number] [address] [facility] 16:57:00 21:00:[address] Surgery [address] 2014-03-06 2014-03-06 OBS [facility] [id number] 575 [facility] 16:57:00 21:00:00 Surgery r Tino l [facility] 2014-03-06 2014-03-06 Outpatient Rosa 2.16.840. 2.16.840.1. 4 [id number] 10:57:00 15:00:00 Jean Carlos Deras [id number] 3.615.0.1 [id number] 01 Results Test Description Test Time Test Comments Results Result Comments Source Tissue Exam 2021-06-14 21:10:16 Test Item Value Reference Range Interpretation Comme nts Case Report (test code = 104) Surgical Pathology Report Case: [id number] Authorizing Provider: Aleksandr Duong DPM Collected: 06/04/2021 01:00 PM Ordering Location: [facility] Received: 06/04/2021 01:45 PM SERVICES Pathologist: Mattie Varma MD Specimens: A) - Soft Tissue, Other, Left 3rd digit proximal phalanx for BIOPSY B) - Soft Tissue, Other, 3rd digit left foot DIAGNOSIS (test code = 3220) c3wdwVRqKAWnm9luKNIwrRJdSuLaDcKrDrWfBq pc dWMxIHtccnRmMVxlcGljOTYwMlxhbnNpXHNwbHRw J0AdoymiHUywKJ7zIR5mqUeedYLmxKJcOLAcEbAx j6dll368wRNbu8xlOPWWxwwrsIy9pCydN15iu1H5 IcbuY1idPDKiOFogEOBoTUjxlMCtOPj6KGGwdCKy cdVxSpWlOHCgiBNbcEC4BOWmSC4ysfsrHHgfXEdg IROwsoY4LMRoqYOiD5RxABZrVR0hvlkxZSJ1ZNvr HPKjTDV9WiZvDFAdv6Fxavi3HtSodFCnMLasrCTu ncegixQvWXKgZYVIJfFIY63IKXANPKMIKPFPE4Mt IDNSRCBESUdJVCwgUFJPWElNQUwgUEhBTEFOWCwg HzuTZIPLJytlQPBzJGNcBCBOG3OLTCAYI1PNS85H IJdVEEzPETAgfffkJSHqQs2iSl7IAVhoAJWJPXHC B85UZUGtNvUoNJqTDBDoFVNBHnCCNXdfYO8NMNFI VMsWXbqqmKJgGZ9fLAKYXVBXEsIHFW0ZSMqQPBhq E2YHU7BFTa4XFrBNDADUF3BJC0hzXFYnZWSrZNLF DM2lUM0JDXWGTuIdHDmBB6NGUP0MGvaKKvIFEEEB KIAbdYRuNZ0xNOCpQUuXKKRHUJQURQESQEFzOy1O OKWAQSDPJVIJQLAUNY4VNCMJIYgMNSlGNPLijSBv KIVorg07NMV9BoAll0Z0BES0DJXqZRJgt2ppFMQh sAPbTyOmUpHyHnIiPsbuqQGiMOKpYjYtl8son016 xEIus5srSNJtDyB6kYQsPLKjmSXbB458HUMwKIcc u5nxk6UgVAFwrSEpd1J0TKBQkqbesWa9zWgpP87x w3O1FeugQ9enZRKmEGSiB9MmUB7yORRwJvd6KEX0 VIM8VKDiJEXmZ9OvFP8kYUIheTSjWPd1y7pbxQnr CEIiTET0w2euJCywhoBzCY1hla1zuMm6s7cjpoNm KENeFIPctKIHDGBcO7YqcDtoFg6zpRx5wWcxSuqr XXP2Xzk3VR6nlm97vqq4sLmdSXKdjngdMxN2TKhb EDQqlchqMLw2FBkqHRCrnBP4IUIbuAEjL1EmWNVy EE0yxop8FXI5XXypRBPmQoR4BJYxnFXtNYXekCfw IHvod828GKC2FqSpJN1eA9Exs2D8sF0mbDNrVCCq uXNmMqUbJGRkwz6lsDLqRKuam7WrAEY0ugL6xXFs xCMaFAXdNkZ1USvuKY3wgh16PFZcVNN1gi9noTPn dCvqrtEpxTYlAZnkF2EoPKOsl142YWKmM3OlKQYk s0G1gfLrJyMoZDWwzFE7unZ6RILuNN2pfjsvd0wp GGhkZSciBBMgsdM4ysW9AEZbcNUqN0RpuN5uUVQt MG5kizxtu0ssDWL0KVlnXLUdDLD6ZdYyVIBkj2Tg dhn5IhPwd7CroKQdRKlkB00nv690TBIgveFtZ7mc kUFfdmhitEMynljnTMayufM7DJLpLTrmqqrfOFFu BIswB3jaSsUzCLEzpTngZXptl9TcOPNyOSUtVkBv jENsVPZsGwv9KZIjtTAyTZNlYiZhI4exyksiBvXD RVKje2fzZ0kyrWGBnKSiJ6IgMBfhfgWqWLwmJHkd SMVqFOC4ET48TAdtBJEtnl11 CPT Code(s) (test code = 3357) x0ykaUYnRILtxFR4WoJfBQCgy1naq3FbqKQl cGFy YPomoIUnurKzfq72kIH3xN78ML1zXHNyLaB4TVMn baO2Mon1FLRgFTAjiFOjE986h1klg7orzlIglFB6 bBqrDDXzdhykNdS3GCevSJBcusfdNHm5KDceUWGl vYG1WKTlpARkN3PxTGWwNR7zriz8KRK4TIzsKJGe YvS9UWEeoOJfRCAxiYeyPVkbw963TNK1HlFqEBWt wuAqpUptcX8bPaGzDVR3IJAyKBWXAHRxRFx3BcLp IFggMlxwYXJ9 CLINICAL HISTORY (test code = 3356) p1vbpQZeQJHanLY8UqOgYOOhu1dtx4P sdHBncGFy NRjxgWHhjnHtit97fGV0wK60WG5xVLNlMzM0GLBj csN5Gai1HYFkVHQxxYAzG491j8hnw3mvydSimIV5 bPusQQJgeycgKvC9EVhwZUHxqxazATl6SFslBVPk xRN8AYXldSJhB9KvCKTsXI5sekt2XFL8GLxpWPZk KoT5PTDhfMCnJQNefIahUFtkw309HKU8ItZuNZDs fmNwpOxenM7zKsOfIUTNg8Qxa560JFiugPuhJVCr v3txLABfJALuy156FTRjuTSvoB== SPECIMEN SOURCE (test code = 3377) s1zzmPTdXXOiyAA4MrQbTRTdm7vhh1Tv dHBncGFy SMxxoPRbleLhjm14tFO2aJ69VM6zAVWjOxY7LCMy ugW3Xsr8PYErDRWvhRPwJ788t3gdn1qeiaNhlGU2 hYpyMKNanyymTxB3DPfaNATmsfeeGZu5YKxzFULe pCS0LHIjsMZiK2XvCWAeFE1iqxo7MFG2KFboEFGc QrM6JDScmMXfPLZshTgtALslq068VTA4QhUzVGIf cvPgmZecvX4vYjFnFTTIAWR7MFXyx6IdtHZpxB== GROSS DESCRIPTION (test code = r9qmvVEdNWTclMEKPKEvA8kwwhTaZZOpiFMd [facility] [id number]) fmxtZEpwEP4hHO1uaEfoqUZvmVByLZ2HBOZpRtUx DSEerZFnytXsNqLfAXQvoNGvlCT3VZGiRY5myzfg FGcsAKguQILuvhL2BMVqbUQqC8IxFTAwIK3nawta JIN4VMweuW7hzcKGTegeQe8bePEbwBmeCcUlJxVm WFOjXBItYCYtoDlySUGcWSr3oK1IIjdrNSR4JSKQ VpdiZMKqVF7Fa2qcTBZgiQVuQBK4OLdklSQxNYPs KCYqGZr6VACgMUpdxWAyLA2trZhxEkedeJiau8Ms zWHwYYvkJAOwYBGhEZsuQEUdTE9YWfZjMAYnBFDx NTYmIDq3IJv5AK7GCxHbBRItDWFyBTScCWDpSHb0 PIshQP8FLKP2PUn5GLC9MlO7YZGwBLAbBQZwLqQc WCCzRTCyOBxeOWuczDIrUF3thWbcjXEgdlFAXzEC y6N0RPTbt4J7COhfT6ImQDDpJRFwbcNYVjyaaXim TmVzdERvYzEgDQpcbHRycGFyXGxpbjBccmluMCAN IrzokTDmhUpmbwWkKQRhS6YqvvDpXKxtHWQybb2b hXtkQEpgHuWjUNQuw4z2sAC9ePVhsGR2oBUupIdf CT1dzOOnWY3rTRpjCOzjviZuq3UjXO44gWAqqjJu mbRnQpDxVtMkxFdal9TgCvVnmkMqQQShJfM8PRDv FCB6FVGcCPOzxUK8RU4mLOXpH9OgpJowoIAjz2Yj rHStfTPvOAFtOGwvkICgg51oTDJmMCsiKN11ADqe cBzrSZEkpX7gtXljOOJ2cFC9bDVlRGA0vaGgJ4Gc SRCEpOWta3Owg4QgcfgfMI5gTI5zTYDyPWGsa63f UMDsEJqtJI03OQtfHTkat4ItLGAriMIxMEDSeGXs m1DmA6yxUW5gnXOyNapkIRR7EJRghY0rGZefaSxv tWVrJPugsNspdm48AT6iEVTmWYHrK3RyDPMzDANg uLNqv0MdFwPpMRbbXH3lKYOxEZLvcDQpsS1orbNv zdPbrACnwGV3DEXyAO03bVGaaIrruE0lX4Bub7J9 qZLmATNxZYAzwLugx7xsZsUzZJBinDXuVskwSVAr k79fBOnslhCmGPlaxvZjD1dEKgsqtHUfaltvjLpy [file] Cn0= MICROSCOPIC DESCRIPTION (test code = s9ghrPViKLQyvWX2PuGfVYMpd6dfj8 BsdHBncGFy 3371) FGstpNSvwnTciy75hCT0hE27PN8mHFWmKaP7KVAf kaI3Sci1NNOlFMWciLFyT930v5imb6icjrZkiCY8 qLbnRNImdvteAqH7QXrrAMAhssrvPVw9EOncUJMd mSO4EREqsGXlA7AlQQUaET5oufn0ETH3SFgdZWVm NjW6IHAfiOFjWKPuxRfxKPhrs505SLF2AbEuFDZl sbPypXfwmR2iLxKwRURUQDRbc9EqMEVxMNKwgc7= Gross assessment was performed at (test [facility] enter, code = 2777) Department of Pathology, [address] [place] [address], Technical component was performed at [facility] er, (test code = 2778) Department of Pathology, [address] [place] [address] 80314, Professional component was performed at [facility] enter, (test code = 2779) Department of Pathology, [address] [place] [address], [id number] 21:10:16 Test Item Value Reference Range Interpretation Comments Case Report (test code Surgical Pathology = 104) Report Case: [id number] Authorizing Provider: Aleksandr Duong DPM Collected: 06/04/2021 01:00 PM Ordering Location: [facility] Received: 06/04/2021 01:45 PM SERVICES Pathologist: Mattie Varma MD Specimens: A) - Soft Tissue, Other, Left 3rd digit proximal phalanx for BIOPSY B) - Soft Tissue, Other, 3rd digit left foot DIAGNOSIS (test code = i3qaqQDuMWRrl3nwHIDtiFE 3220) uZzEwMzNcZnRuYmpcdWMxIH tccnRmMVxlcGljOTYwMlxhb hYmKABrkAHmU7VkhrgfKKtc ES7dJX9puFwbvKJglSXrLRV xGvJvp1myx694mDZaf8thIE KOpxtcgSh0iWnbY01bf8M1J qznB8paKNWvSGpePGWbJIos oFOhBSy0XJNpwJRcpwRnFjG iGVUefHFimHY2ZVOhZZ5hxi hfBGrwTPnyCJCvfcE1QGKyf FSvE2YoMZSvEH5bvyckQBL5 QXyzCTOjAMR6IxJtIYSad6T lito8QdTkyWRyNEuojMRhns rxolGnQDTzDLHNNxRYZ44HZ YKFDNODWSUAU6LeYYVIMWFR SUdJVCwgUFJPWElNQUwgUEh BTEFOWCwgQklPUFNZOlxwYX DzPFWsVDMOD9YAYRTPF9THV 01ZRUxJVElTXHBhclxwYXIg Rf2yGf3QIOhiNZISJLPPQ72 ULCAzUkQgRElHSVQsIFBBUl SRMIyaCY2RYDDHZDyBZlbgb UAxNN8bNEOOIUEGSpGFDM0W YUlKBBvyR2SWB5JCJq5PMsP GHBPJV4AXV4uaNCJbPWUyZL ZWHF6xFC7VFOSEQzJkQKkNG 8PPIS6WUuvKMoLDRFFOUMIn eRRqLK6wDHSsAUeJMCVMBBD EEQBLYUBwDb1VPCHJAHBYOX BAXQNKKD3AWHIJVZaFBUnXU QPcvKYhJKGrzu19UPR7LjTe k5J6UZD4GDJhVJEkp0wxABN mbGFuZzEwMzNcZnRuYmpcdW AaRNGqByZxp0zpd231eZUnv 7vuYYVdVzC1wFErDTYohNOp O133MZRzGFrid7wck9VeSDN kgNYfl1U2EXXXncfbaXr8yY gqM82xr2W9WwwjB9pbJMKnZ RRiV1MmIN9gWHGqWti5WAA3 CER2WHElUEHnI9KgRW4mBTZ zfAEzQGk2g1rgoUgiJJAnQR Z4n7ruFVvbqnHdNE1lfl6kv Xy6w6mnbgWzGICvBIWhjVWP PKOlU2MqgTfgPi6vbPt3iSz tFxeiJVH9Aez5BK9muc78qu v0wQqhFTBxkmrnZfU8TNakR OTsghomKPn1HVyjOUBgpBO9 ARSugQUeS6GuMDMuFK0wrml 5INP1TErmKWQcPcM3IMHdoE CvFORheTjkWPeny092JMT9Z oKbMN7nR8Aag8S6tN3wjFYj VKLpsQEpZyPpWRHyoo0dzOI zOWklx4RfZJU8twR2mOPkoC SwJEXpAiA6YSpyDK3ugr43N NNlMUA5kj4ruIXkvNdwelKf gOBwVZvkN3FrRQNay694QMV fZ2OxOAIcq9J0pfQfIrCdPI PijQO3yhN5NPJfDN8gfhsfh 8osWMzgFSzaHCLrptB5vaR0 MXYsyTUnH6OteP6sCOClFH1 hcoiph8djHCJ4JFvbTHDvOG E0JcNyJEEnk8Oagla3YvWmf 8EioWFpLXezM80qi531JIJn ywNcW9hagUOnknyvhLOypgg uBOixtfM6ALNoOCvultkxYU BmCKpnO7vzNgZeXKZdjNlyG Ahmi0VxOUBxUMPmNrBlkESw NAXyYye9TEUmoRCnRRNmXfK xW7xrvjtnInRUZILhc6bbY4 tcbZKMhLYmU4GlOAgiwjUcN HttDGqnWYXjNAY9IS62BOdw DSPptl35 CPT Code(s) (test code h4ukcVCsXUQsiOA3HhRxMPK = 3357) xz0xcv2RwaVBnjYYqSIzouD KnpcMujf97hHK7sB93XE8kU TMiEuU4JXGdmaK7Esi4ZZBg KRLyyUVwE958l5dmy9yugvK bkDX9uSizCDVeixgzTlH0AM dcUWZorwjcPQk7FLemNSQik EX9XRFqcNChK8FrFJDkJL9d wrc0LRJ5MQgtUSKqXuE9YBD acPIdQVFwnXovAFlxi978DE T0UeQiSVVsusNyjCgkzG5eG vTqCFL7YZTySXXJADQaOMz9 MzExIFggMlxwYXJ9 CLINICAL HISTORY (test x9dzyWEnHTBnpKA1XwKpRZG code = 3356) vk5mfa7NdnITxhBFlTAmnhM BrsqTotx35cFE9pA27OY6cU BTvQpI3JVQylhQ5Xor5TEQw URJbgSEzE868m9ecy0olblF xdES7wEotPETffdweXmO8KR pfRCMyywivLUa4FDocFSGkj TU8HPQxyHGdZ9GyQBVhKV5c uaf5TKT2ITslFKXwJdM4DLB xqRChGGBvgSozOUyhc152YZ T3IiGnLGYzwrVvxWdxcN0bP eYbXQYAv9Fst075TXynvGjv GGCfk1aqBHVnHRYht600VVL ccGFyfQ== SPECIMEN SOURCE (test r9cuhCClIJUptPQ2XyNqLAY code = 3377) pg5cgr6MdeETcuUThWRbshV QaofEiwb60nDS6aJ39DR9pO WGrSdZ5ZWLbdmA6Usg8BIPg BCHuxZEzJ266x9qdv0smyqJ dqWN1aFzuDPMzlamzQzF9QG poRKZislsuPZx9KLfpETKrj LH2TYWdiPKcQ0GmYRDbTI0o hvk5NXU5JBnfTUDxViH8MLF liCKxKHFluAfrRJwum254PR D8NbKwMPZhehEgtVfbtL5pB rOyAILDWDI4UYGdw0NmfPFk fQ== GROSS DESCRIPTION k4oamZHvVUPmiPAXDMBrF4h (test code = rhnZhLBZevIFhH6PlgpqzIA [id number]) beVP9qWX6cqTxhaSZfqRZdX K9MUQOlNpMlVQVzuRJisyLh StNmJTSdrUKlfND4BUKsOT2 imwylHEutJDimYTFyufM7HT FzzGUrX8WxFVZeAD3uqwmcQ CW7GAouwV8dxzCFUeefCa8d dHRibHtcZjFcZmNoYXJzZXQ rJXSatKcoNMRtXQa6dV1KPm ydZIE5ADDMTxdmJEXzCN5Br 5vyYSBdtUIxOET9BLfrdCRq UWUxBNCdAUw0URKnLYmlwCS mYD0ejKpwGeciqTkuc2BoxQ BcXGlkIDUxMDAyIFxcZGIgI K0WKaAcHGAaLMMiHJNhEQk7 MUl3ES0GYaUtWKMmXTVtPYW uGYDlBOl0KRlfIK5GCKD9LF g0WRV6VbL4PHGkGVSyUJFmZ iBcXGYgQXJpYWwgXFxmbCBc JU4hpQahvBSrpaRUXsTHf1D 1RQQls6D1RNohY4DzOFEhCS BhciANClxlcGljTmVzdERvY zEgDQpcbHRycGFyXGxpbjBc cmluMCANClxsdHJjaFxmczI eMMBwH8IvcbQhYPgsPLXcoa 2onBdeWRgyRhCiFYChr6p0h II9jYXhmIU8kKTkqOhiUQ3p mCNeGO0xONdfWRvckwUaa6N sLB07qLQtfbUwdrNdOyNjZi FenRoqv8SvMaLjwwQxXWAwE rQ4WIVdEJL6OAKfJXQlgQT4 PU5hGGVcW3IrgUxhmXJyr5Y yaGFnaWMsIHNoYWdneSBib2 2gPURgVJwoVV61AFmlcIdsJ MHsdM6ieDprMOU7uIR2gOGs ITH2sbEvU5WpLCKUnJKac8U nk2CxfospAO9yAL6yPZZoEQ Wfv60wIMNdZDfjSU93QAuvM Pyhz6UoERFqcTNcRWOLxPRg f1XkA9mwIJ4snOTjQtugLVM 2LVTuzU7vIUdfhKcgwHUfDE kmdShycm12VA9yBZQkEJUsQ 8AfWAMfVOQfsTSbv1XyEjUa IWwhOW8dLKZjKERinRRsdV1 cdhCewbHqhHIqbIT8LGFtEN 20yTWizUvaxM4kC3Cnl0S6x HLlNPXtSDKiyJfss7naYkQx OEIzjJNaBkysNZIgp62wBLm mgmCqSEatrwOmG3kWMpjkdK FpblxlcGljTmVzdERvYzBcc HdoiP15MSYfgYBxFRS8DH8a UKLttisfKIOoWMEdILR7EGv oeP70rNPqLCIoPHRnaQZrqK 4Ze7sqQVYiwULmOKK0WDmno QMzXETkIPLyHExqFePcM4LF HGIaDOOpWoOfGnBeEYs6HJz iE2ESHSJoTCK0BtJnAZP0Sg Z6FAq0ALEQKz8pZVZqVXR6Y qF3XUH4HkZ9VAxmdXYbENoq ZiBBcmlhbCBcXGZsIFxcbmN 2ZLQwMELdoEfovA4zIx9hM9 6eoIPPcPVkmURsNV42wAEcT cnkFXSmOIlsSVOlI28ov4EB e4OmHI1JIZb1oeXyxqukgU1 nTBMwtuCxLUuusDFjS3cmAr MyMCBSZWNlaXZlZCBpbiBmb 3JtYWxpbiBsYWJlbGVkIHdp dGggdGhlIHBhdGllbnQncyB pQR4mUIMwMMTiI5OtIJTnI6 5pTREefK1lRAHyCV1wKBJ3r ExfPNQtwDxvjVQdLGJ0JGAt q0BfDMcmLCJsNF02UTxzDG9 2JBgoLT80ICGlRBRiVDA9lP OyMZBiMIxmoRMwbWL8k2ZkB PhiGAOpWKOlILCjs6QorLmh yKvmpPSxZBGwC71dsiAyb3A zOn2vDTYaiPTqjtZimhmcGQ 61IQOtDIFqd53txWliWAQxJ gDqwEnnk2FoND1pgpwbxg5l IFRoZSBlcGlkZXJtaXMgaXM kkRRkRNfewP0uuFCyMOUkAD Q7eWFqCJDgyjDxYGYbZYH1R NPuEJGulFEkqaWfgs0avs12 gbQ1pUCihmKvpxF2mTBamQh hbnRhciBzdXJmYWNlIGxvY2 K1IORdQH3fQFEhGZUiz90sw UvtHFJav8mvuZEiITWpvN3h zTLlH7pxDeErOBwfDQGnijF tvC8oSQUiuMwmXzQ6nOWgxT qhNIVvbTUrNGqkb8jmawHrc jZymtK4UOZnrePuqhJil32i hE5esFbfMZAkpOriOFCMAUX 7nT5ePRYyINH1DHebzfYkJs N7SIWjP8OnVFDjRDFvo8vov TZhMB6nueipmiWiYtg0KZMg dahfMRdaajKjCkU7FVPniH3 3g4r9FKPsfGXxhRypHAvaeE TwX9xqNMVehC1bJNOnZBJcY 5IscJpgMFDYXmkoZt8pKBU3 yrKuhno8qK6yFDDcF6VsOCE ri1jdl5bpapvvSZPnXQuzcF DkJ8C4hD8sZJvtioEwScO1V QRur9LbbSseaLzhaIPcFESk LRhlYw9vjW10rO3yTZMbV6M fJ9xxmRUjeWijopopaC7aIG yjdI6gSTYPIDxtoNousU5cE ILjA93vv2AIe2ThKZFjBJrc u6cnxJyhq4EsrPCvQNjoFYP yuOErBCimzY5cGjZrd7jpuQ x6JVwkpiL7YHRbur9YLawss Q1hLwSdg3jaoEa4UFWONtjk uhD9h6nisGpcc7XgrRSbMW0 NCn0= MICROSCOPIC z4tomDXhYQBtzOG7FuKgWQT DESCRIPTION (test code dd4yfy7WiwFTbmLQnYHfcgP = 3371) LroeHbdx20zVM0xS20VI2rO DMvRoH7YNYbrrY5Ncx5LIUw JDJomEBcJ644v7eou5dmotQ omDO3uXcfPMEonielXjU3SM ebNRYdyprpRNx8BRoqSDPei ZH2KJKevKUpE1BdXTMbVR7n nyv6CEA7IJqtOMYmClA1HLA pnGVtKBOzzBfyYFlub684KN W5WiVeSHGoheHewXnqkG8zG vGgAGKMFSUrn9VzGEKtHAGh cn0= Gross assessment was [facility] performed at ([facility], code = 2777) Department of Pathology, [address] [place] [id number], Technical component [facility] was performed at ([facility], code = 2778) Department of Pathology, [address] [place] [id number], Professional component [facility] was performed at ([facility], code = 2779) Department of Pathology, [address] [place] [address], [facility] [id number] 21:10:16 Test Item Value Reference Range Interpretation Comments Case Report (test code Surgical Pathology = 104) Report Case: [id number] Authorizing Provider: Aleksandr Duong DPM Collected: 06/04/2021 01:00 PM Ordering Location: [facility] Received: 06/04/2021 01:45 PM SERVICES Pathologist: Mattie Varma MD Specimens: A) - Soft Tissue, Other, Left 3rd digit proximal phalanx for BIOPSY B) - Soft Tissue, Other, 3rd digit left foot DIAGNOSIS (test code = s0bfzMSrJTQns3hbSZLfhNX 3220) uZzEwMzNcZnRuYmpcdWMxIH tccnRmMVxlcGljOTYwMlxhb lOvAVOnlDVpJ6AdqfwyGXcn OK4oYJ9orLimbOLlbCNhAFW yGzRja2wnf314cFAae6yfMM POdoqpzPd0zHurY38gn8M0L pmrY3zmATEaVXnnJVDkOEzw uBUkFTh3KBPglVTyfpYuXkX eDQLxnDLinML6AVJfMC6knz qjMLgeKMjzBIUieaC3CWKuw IEsZ5EsWGUoRH3ankrtMOM8 DIzpJZUtJJZ4DjCyMCCut1H jlml4BnYpzFJzIXofcMNplx mfqnXcPOLiGALWJqFRB68YF ADCWFHWSBLAR7VnSEMQUCOO SUdJVCwgUFJPWElNQUwgUEh BTEFOWCwgQklPUFNZOlxwYX UfWIGtMQMPQ5BIMGWIP0JFG 01ZRUxJVElTXHBhclxwYXIg Hw6sNn5UXCxdCYSSTRKFV53 ULCAzUkQgRElHSVQsIFBBUl HDCSyaPD0SQPQFULbTSzwcv IXmDA4vQQQFWFJPXtTCUP1N JHkFCSgpI0BTW1QPJl1HTuJ TXECDI7MVF9buHGBeAXQpEM UHQR1qCX4XGSCOGvNlGDiUX 9LTON3OUhoRTkDLJCUDPLLl fPCfXK5pOBAwVDwMUHKGFGY PNGUVLOXgWu8YXUNYULSJIB LVDRSVCN2JYLGOCJsWBBqMZ VWatGKiYLXyrw24XCK8QqWo z9H0SXT7CRKkLPFrv3lsBDP mbGFuZzEwMzNcZnRuYmpcdW YbVDWxIuLks2rpy050jVHaw 2unDOEnFfE6vLWxLFKvaWQt T995CLOyYQcle6xbk0IlCRU ebRJha8L8VPBKghrmsWg6eB lyP53js5D4NjeeZ0piZRQoM QUmN5JbGZ4uCGSzVdo6DOU1 SPU4TTJaSRUzF8CsFU7bDKG epKLvLMj4a1tpjNfaDRFlVT W7f6xjPXhkkiPhNN9juv3oq Fd2t6inmaVmKJYvDFKqbOVX MSUhX5LloVibNu2ruTt1pBp oMjxyLRZ6Kyn1AT8nme42vx z0rTvbGQNqgguhTnS2FMflL WYaqlknFBl1FMxdTKOfuFM9 JYJmkKDuC1LvJEFdLV3qrxg 6VIX4NTpvLFEhVkE7OPPwtZ QeGOEuoQbyWUwsi134XZU4F wVyLD8yQ6Zko9O6bZ8fjYZm PEJlbQJuOwXuIORbqq6cpIP nAQcqf4TvRQB1efG9qTQlbX BaSUAaDfM2MNlbZM1grq22C OCvTAZ0qj2mlFJmeJcqgqGa nDVqCFtaU5SyHEGim903ZIE tK7NcMIZaw4K5geMyPbDeLZ PzeVM5ygC7CPXgQP1csykga 1aeACyaTMpoDLXdidX5rpB6 OYBffISsA7GeiE9oEBGbVD4 geuhhy5cpZWG7PInuZSLnYW K4YwNmIUXov0Wrbdw4CpQqz 9LelZUkPXewX44ac217OQBj ciKnQ0lygXXxlbrhzGOjevg iPDbjttU2WFKvCPtlqamaLS YwRRmnO6xhIfUfIOMfzHgiY Rynr7QuLQUdMPLjMzRlqMWf NWIkLxk1ERQocLXePCOeUuN wF2rggjwkNkNPUBYbb9vqH5 uxoLVCkVJiP9ZiSOhskxGhA PxpEIkqVCCrHEL5NT08YCpc XEPgax64 CPT Code(s) (test code w0cdnEHnMDLgoFH6UnFrBWP = 335) dl5ezs1BhgRApbTPfQLshwQ JtnnGfoh64jLL7qM43EN1wX RNpRpN6ZGIqxkS3Tbw4LFYc PDGmjRKtZ783q7khx0gutyN icLL4iLhjBQUbcbsfMaW2VV grLNYlbwioINi5DTuoSTFvp FD4MTSkkDGvM3CmZBBeQA2y szl3NAP9LYthJUYnLjG5LIO jhRHwCXVtoTieJUxpq154VC C9OwEtZBZdwuTapQfnhB8fY eWuZIJ0KFGmDRLOPHExYKl7 MzExIFggMlxwYXJ9 CLINICAL HISTORY (test z4gudQOyGRIjpDV4VpCyRHT code = 3356) xz9hbp9HvdPXweKJqJLqdyX VhmaRkky90lFD8oK83SC6mA YTtWkX2VOEompY1Uft2FESu QOMlvKLaA989o7xgs5rgszD wzCG1lVzpFLJqpeleHlR5TF hgQSJzwrybMCe8PKuyCEDft ZJ1KJDzaMOzP2GwATEaKE0q giz6CZJ9SHlyQEBeRuU3SHM saOSeKOCzkWfyFQqca319PE Y1SlEvNJJzqhUyiQbxeG1qQ yZjPAWBf2Edt172JOlsxDah ZPFpn3lfGHNfEQPkq737ETE ccGFyfQ== SPECIMEN SOURCE (test j1xqgVLzRJMymLP2TiQgKPO code = 3377) ml7ogy4TwaKOaxDTtDIflmU WcdsEiex50wSN8cC58DF5vV PVsOtZ1TVFsdgD4Yvq7PXFq TJFsnSMzQ903v8anz6drofG ddVI0cBpqURRjnhxvCqS0KQ ooESNadiprIGy5XFuyKAGwr EN5ENModPYdN6TeNGNqZP1x bex6MKW2ULmkAHZhMaQ1ZWY heFUfEVRxyQciTVxzv322TR H4JgMlHBFrjpXygUilbU9gG dCiZSJLVPX4ILLod9RdcZZc fQ== GROSS DESCRIPTION g6kzzLHyGMOylIHSMOGlF2v (test code = ragUqIEYtwCEkZ9VcexqtNA [id number]) jhOA7eVW1afJezfOCasLZkU X2TCUDpFsDuJGKqwMQlroAd VyVfROUqxLBauEH6TMYzNF3 nffrmNRmzTUzqFQIaooM2ME ZpcBPlU7KpXOWpFF2mjxsdZ GI4RFqftZ9ufpULScywVu7n dHRibHtcZjFcZmNoYXJzZXQ aBBBlsAgcZBNsUTq2lQ3NIa sdDGE8HEDUYmcuPUVuAK2Un 1xlJIZsxPTxTFL3ENqpkFMt QKFdRLXdLPm2XQPxRIurbUJ wDB2goQiiOxtgxPrih3FiyE BcXGlkIDUxMDAyIFxcZGIgI R7JIqRgXUHtDMKsKYFcRXy3 ZPn8VZ1EKeHgVZTzRYGqABG cLOBtIUz7FXmpIL3NTTY5PC b7JCP2VcT5TLUwFKRpRVHrZ iBcXGYgQXJpYWwgXFxmbCBc AZ8ohRoheJEolxVOJiLYc5J 7XVPwq2S3FKgnZ5KwCTQrNL BhciANClxlcGljTmVzdERvY zEgDQpcbHRycGFyXGxpbjBc cmluMCANClxsdHJjaFxmczI kNLMwE8ZzhfOlXSkiTDYtgb 7jwOhjOEteKxEkWKZss0y9a HJ2eHPinVN6xNAqfZxbDB8f zDEcDJ8iJGvuHAjtbvYzc2H yTU69xUTyggVwozKlNuVmYm OejZlfx5PuWxHknwPjFDQzT nZ6LSHgGZO7HRQuSKEndCC1 PK6eRCNhN4QjjZffqUQcl0V yaGFnaWMsIHNoYWdneSBib2 8sVLZiXTdeQJ67OCustFuxX BBcuW2krVpbMMB5lSV7oTVj PQT2qcGaZ6ZvWDGUnBWko6R sg9HxqbkpDM4rEY0gUIRnCN Lct93kQRVnSLnjQK46ZDgwC Ropt1YzDPGqnBIqHBEUhMJq x7GiY4jiEI9vjXIuSnzpWVK 5RRUpnN3eTDqphBoceXYyWM zxgUknog20UF1lWVChUHCgJ 9GpLLDwKUQqxPUoo6IdFrUb GAuhRG2bNAOhQANplAUntM3 rybBcnuPeiFGkfOT6FLNeSJ 99oWWytPkyaZ3xN5Rzm2F4y GUqRKSiHHTutIiny2txXfDl KOLcxHGdZrrbHTBaz74pRBr qddKdORsxooKpY1cPRopfnL FpblxlcGljTmVzdERvYzBcc XknuJ57DTSfcSOpQXX4RF9y ACDzayqbQNZaZCYiSXP1IUw tfB60qAEuSZGkOILnbDCygO 0Hv3ruCNQsbNJwXUU0RCnty BXzLOEiJGTbREieZvUzX6DW TEZnIXYyTyRxYnGzYXd4YUu oL3ELZHNsGUX6MbHrUEF0Vd J1WWu4PMWDRy8pPLLzGZO3J jA4VGV6CkO3DYujpLMjJPhy ZiBBcmlhbCBcXGZsIFxcbmN 2WFPdFWWekVoyzC0xPt5qT6 5ztRIWuMHaiLDhVM25jVUwF fmwIBUdLEqmWEJnM61an2CE b9LxQR5LORc1dkJyojeppM7 yXKUlkyRnFTtnxNWbX0fbKx MyMCBSZWNlaXZlZCBpbiBmb 3JtYWxpbiBsYWJlbGVkIHdp dGggdGhlIHBhdGllbnQncyB tVY1kJNZhRSSiX1CxZFDvM5 1gTJDwgY9vVNZlHD0cMIG8a WgpTTHfeVkzeUNsLYU4UKWq b4LqKAyiRAFyNO09VZuxOJ2 5NOkoRQ62HKKiTTEvBJO2tQ YuQNNyDTbgxMPfrIK6h9WqX OoeVYHqZXBtBYXqk2OvoEtj uAbvqNKdNNMsG83qhpPqa5D eDa8pDNHivMSjalXcnpmyGY 61DZGvMUQtn50wsTdsJZZzR cWavAxak4FsJW0fvxndnp4y IFRoZSBlcGlkZXJtaXMgaXM qiUYtPMcupD3btSFhPZVoLA M5bBZcRCAxioHcTRUwHLF8Z ZJlPITofFYnnzUlqc6acj31 jjS4oIGcbzVualE0eTJqhAw hbnRhciBzdXJmYWNlIGxvY2 W8CUJkOA2hLAFgNPFic32yg NmxPJHuf5matDKcFOAuwY9p fVKtX7ecLwEoDEkfZWJoxxL nnM3xYENklAnrTdP1eHOlzN kdAYGjlNRuATbnk4kdpvXrv hJaeuV0PJVorvFpvwDgr68u hA9rmLvvHGKthYtrWXVUYAY 8cO2jWYDxZQS3PThrveZgVl S1AVOcR3QzXHXcFJYge9uql HVfZZ1zpvmupgCeWqc2USAb jvfpYWqfbwYgCmH4BVFroT4 2u3t4SJYarWVijBoxMHoqsC BeU3rpVATzqI4tFBVtRCMmG 4VgwUzvCYVQUpxlVv1cXDX1 pbZmkpw4lJ1xZWXjB2SiVQG ne4vzk5wuuspmEPHiEDczuI NjC8A4eW1cHCboovGaTjZ3X SInp0MvaFmsaQlehTOzYUIv LCiiDv9juR07gO5cOLHaT4V kF0znlQNoqBketqtynM6sMN sayT2fXLKJQFmidXommT8yT EQxF50ru6ZTc6JoYFCiTUqt c4pwuAapu9SzaVAeLXnrLBF egXVgYGejtF3iSvUhj0dyzW o0INpcnsX2HUJxdv5LRdqys S7fJjUpr3ijsZp1SFFZIdut wuZ9c6rmeKorn3OjrAVzKN2 NCn0= MICROSCOPIC f1nngFWcNOUatBX9KtVkIOV DESCRIPTION (test code tw1cou5PysQEqrSRtPLjwpC = 3371) PuxnObdy12lRZ9nX62PN5vI NXtQtC9GRTsofY0Lva4QWHy TNKwaFImQ418l6vmf0wzkhN eaMG5bKwaGMItvpssWjP3NE nmWTGertejNOd3QRmtLJXdy IB4JGVjxQUkV1QfTVYuFP8n ptu6HFQ3RUiuHTInSgS3NKW icWIbWQXwkBdlCGwjc929JT Y8SwQcQQLlbsAigVkkqR3kO fXdRKHWUCTjv6PsVBMlJMIm cn0= Gross assessment was [facility] performed at ([facility], code = 2777) Department of Pathology, [address] [place], [place] [address], Technical component [facility] was performed at ([facility], code = 2778) Department of Pathology, [address] [place], [place] [address], Professional component [facility] was performed at ([facility], code = 2779) Department of Pathology, [address] [place] [address], [facility] [id number] 21:10:16Surgical Pathology Report Case: [id number] Authorizing Provider: Aleksandr Duong DPM Collected: 06/04/2021 01:00 PM Ordering Location: [facility] Received: 06/04/2021 01:45 PM SERVICES Pathologist: [...] ACUTE OSTEOMYELITIS Signing Pathologist Direct Phone Line: [phone] signed by Mattie Varma MD on 06/14/2021 at 9:10 [id number] X 2, [id number] X 2Osteomyelitis ankle and foot Left footA. Soft Tissue, Other.Received in formalin labeled with the patient's name, medical record number and "soft tissue" is a 1.2 x 0.5 x0.4 cm morales, focally hemorrhagic, shaggy bone fragment [...] with an intact toenail and a disarticulated segmentof bone extending 0.5 cm from the soft tissue margin. The epidermis is morales wrinkled and there is a 1.0 x 0.9 cm green-brown ulcer on the plantar surface located 0.2 cm from the proximal skin margin. The bone underlying the ulcerated lesion is coley-morales and soft.Section code:B1: Ulcer to proximal margin(blue ink)B2: Uninvolved proximal margin skin, en faceB3: Bone underlying ulcer, following decalcificationB4: disarticulated end, following decalcificationSHPerformed.[facility], Department of Pathology, [address] [place] [address], [facility], Department of Pathology, [address] [place] [address], [facility], Department of Pathology, [address] [place] [address], NWE, FOOT, MIN 3 VIEWS, [id number] 13:10:00Reason for exam:->[facility] : 1945 Sex: MFINAL REPORT TECHNIQUE: Three views of the left [...] erosion. Signed: Jayesh Lino MDReport Verified Date/Time: 05/10 13:10:20 (CELLAVISION MANUAL DIFF)2021-06-05 12:27:50 Test Item Value Reference Range Interpretation Comments NEUTROPHILS - REL 67 % (CELLAVISION)(BEAKER) (test code = 2816) LYMPHOCYTES - REL 12 % (CELLAVISION)(BEAKER) (test code = 2817) MONOCYTES - REL 12 % (CELLAVISION)(BEAKER) (test code = 2818) EOSINOPHILS - REL 5 % (CELLAVISION)(BEAKER) (test code = 2819) BASOPHILS - REL 1 % (CELLAVISION)(BEAKER) (test code = 2820) METAMYELOCYTES - REL 1 % 0-0 H (CELLAVISION)(BEAKER) (test code = 2821) MYELOCYTES - REL 1 % 0-0 H (CELLAVISION)(BEAKER) (test code = 2822) NEUTROPHILS - ABS 7.10 K/ul 1.78-5.38 H (CELLAVISION)(BEAKER) (test code = 2830) LYMPHOCYTES - ABS 1.27 K/ul 1.32-3.57 L (CELLAVISION)(BEAKER) (test code = 2831) MONOCYTES - ABS 1.27 K/uL 0.30-0.82 H (CELLAVISION)(BEAKER) (test code = 2832) EOSINOPHILS - ABS 0.53 K/uL 0.04-0.54 (CELLAVISION)(BEAKER) (test code = 2834) BASOPHILS - ABS 0.11 K/uL 0.01-0.08 H (CELLAVISION)(BEAKER) (test code = 2835) METAMYELOCYTES - ABS 0.11 K/uL 0.00-0.00 H (CELLAVISION)(BEAKER) (test code = 2836) MYELOCYTES-ABS 0.11 K/uL 0.00-0.00 H (CELLAVISION)(BEAKER) (test code = 2837) TOTAL COUNTED (BEAKER) (test code = 100 1351) PLT MORPHOLOGY (BEAKER) (test code Normal = 486) SMUDGE CELLS (BEAKER) (test code = Present 1371) DOHLE BODIES (BEAKER) (test code = Present 359) VACUOLATED NEUTROPHILS (BEAKER) Present (test code = 483) POLYCHROMATOPHILLIC RBCS(BEAKER) 3+ many (test code = 478) ANISOCYTOSIS (BEAKER) (test code = 1+ few 961) MACROCYTES (BEAKER) (test code = 1+ few 964) POIKILOCYTES (BEAKER) (test code = 1+ few 966) SCHISTOCYTES (BEAKER) (test code = 1+ few 765) ARTIFACT (CELLAVISION)(BEAKER) Present (test code = 3432) PLATELET CONCENTRATION Adequate (CELLAVISION)(BEAKER) (test code = 3438) Nuclear Supervising Operator ID - Ponce Parhamo-onUser comments: Slide comments:CBC W/PLT COUNT & AUTO [id number] 12:27:49 Test Item Value Reference Range Interpretation [...] (BEAKER) (test code = 413) BASIC METABOLIC [id number] 10:35:58 Test Item Value Reference Range Interpretation [...] S NOT APPLICABLE FOR DIALYSIS PATIEN TS. Nuclear Supervising Operator ID - BSPOC-Glucose [id number] 07:57:19 Test Item Value Reference Range Interpretation Comments POC-Glucose Meter (test 180 mg/dL 70-110 H : TE STED AT [facility] code = 1538) [address] [place] [address], [facility] 30: Nuclear Supervising Operator/Techni heather ID = [id number] for ROHIT Murillo Lab Interpretation (test Abnormal code = 83554-4) [facility]-Glucose [id number] 07:57:19 Test Item Value Reference Range Interpretation Comments POC-Glucose Meter (test 180 mg/dL 70-110 H : TE STED AT [facility] code = 1538) [address] [place] [address], 770 30: Nuclear Supervising Operator/Techni heather ID = [id number] for HARLEY ROSIE LozadaRIA Lab Interpretation (test Abnormal code = 67781-5) [facility]-Glucose [id number] 07:57:19 Test Item Value Reference Range Interpretation Comments POC-Glucose Meter (test 180 mg/dL 70-110 H : TE STED AT [facility] code = 1538) [address] [place] [address], 770 30: Nuclear Supervising Operator/Techni heather ID = [id number] for HARLEY -Dillon, LATANDRIA Lab Interpretation (test Abnormal code = 62736-9) [facility] [id number] 07:57:19 Test Item Value Reference Range Interpretation Comments POC-Glucose Meter (test 180 mg/dL 70-110 H : TE STED AT [facility] code = 1538) [address] [facility], 770 30: Nuclear Supervising Operator/Techni heather ID = [id number] for HARLEY -Dillon LATANDRIA Lab Interpretation (test Abnormal code = 79914-5) [facility] [id number] 07:57:19 Test Item Value Reference Range Interpretation Comments POC-GLUCOSE METER 180 mg/dL 70-110 H : TESTED A T [facility] 6720 (BEAKER) (test code [facility], = 1538) [address]: Nuclear Supervising Operator/Techni heather ID = [id number] for LEWI S -Dillon, LATAND OG POCT-GLUCOSE [id number] 22:44:00 Test Item Value Reference Range Interpretation Comments POC-GLUCOSE METER 153 mg/dL 70-110 H : TESTED A T [facility] 6720 (BEAKER) (test code = [facility], 153) [address]: Nuclear Supervising Operator/Techni heather ID = [id number] for CORKY GARRISONIA POCT-GLUCOSE [id number] 17:03:50 Test Item Value Reference Range Interpretation Comments POC-GLUCOSE METER 148 mg/dL 70-110 H : TESTED A T [facility] 6720 (BEAKER) (test code [facility], = 1538) [address]: Nuclear Supervising Operator/Techni heather ID = [id number] for LEWI S -Dillon, LATAND OG POCT-GLUCOSE [id number] 13:48:08 Test Item Value Reference Range Interpretation Comments POC-GLUCOSE METER 149 mg/dL 70-110 H : TESTED A T [facility] 6720 (BEAKER) (test code = [facility], 1538) [address]: Nuclear Supervising Operator/Techni heather ID = [id number] for Brandon rrell, Moses POCT-GLUCOSE [id number] 08:30:33 Test Item Value Reference Range Interpretation Comments POC-GLUCOSE METER 162 mg/dL 70-110 H : TESTED A T [facility] 6720 (BEAKER) (test code [facility], = 1538) [address]: Nuclear Supervising Operator/Techni heather ID = [id number] for ROSIE So [id number] 05:34:01 Test Item Value Reference Range Interpretation Comments PARTIAL THROMBOPLASTIN TIME 45.4 seconds 22.5-36.0 H (BEAKER) (test code = 760) POCT-GLUCOSE [id number] 22:31:51 Test Item Value Reference Range Interpretation Comments POC-GLUCOSE METER 145 mg/dL 70-110 H : TESTED A T [facility] 6720 (BEAKER) (test code = [facility], 1538) [address]: Nuclear Supervising Operator/Techni heather ID = [id number] for MARIO FOX POCT-GLUCOSE [id number] 13:17:41 Test Item Value Reference Range Interpretation Comments POC-GLUCOSE METER 152 mg/dL 70-110 H : TESTED A T [facility] 6720 (BEAKER) (test code = [facility], 153) [address]: Nuclear Supervising Operator/Techni heather ID = [id number] for KULWANT HICKS UNIQUE POCT-GLUCOSE [id number] 10:28:49 Test Item Value Reference Range Interpretation Comments POC-GLUCOSE METER 132 mg/dL 70-110 H : TESTED A T [facility] 6720 (BEAKER) (test code = [facility], 153) [address]: Nuclear Supervising Operator/Techni heather ID = [id number] for KULWANT HICKS UNIQUE [id number] 05:42:20 Test Item Value Reference Range Interpretation Comments PARTIAL THROMBOPLASTIN TIME 109.7 seconds 22.5-36.0 H (BEAKER) (test code = 760) [id number] 22:53:04 Test Item Value Reference Range Interpretation Comments PARTIAL THROMBOPLASTIN TIME 102.5 seconds 22.5-36.0 H (BEAKER) (test code = 760) POCT-GLUCOSE [id number] 21:17:31 Test Item Value Reference Range Interpretation Comments POC-GLUCOSE METER 131 mg/dL 70-110 H : TESTED A T [facility] 6720 (BEAKER) (test code = [facility], 1538) [address]: Nuclear Supervising Operator/Techni heather ID = [id number] for Bebo dunn (contract), Sarah ra POCT-GLUCOSE [id number] 17:50:58 Test Item Value Reference Range Interpretation Comments POC-GLUCOSE METER 151 mg/dL 70-110 H : TESTED A T [facility] 6720 (BEAKER) (test code [facility], = 1538) [address]: Nuclear Supervising Operator/Techni heather ID = [id number] for LEWI S -Dillon, LATAND OG [id number] 15:38:28 Test Item Value Reference Range Interpretation Comments PARTIAL THROMBOPLASTIN TIME 57.2 seconds 22.5-36.0 H (BEAKER) (test code = 760) POCT-GLUCOSE [id number] 12:54:42 Test Item Value Reference Range Interpretation Comments POC-GLUCOSE METER 152 mg/dL 70-110 H : TESTED A T [facility] 6720 (BEAKER) (test code [facility], = 1538) [address]: Nuclear Supervising Operator/Techni heather ID = [id number] for LEWI S -Dillon, LATAND OG POCT-GLUCOSE [id number] 08:26:04 Test Item Value Reference Range Interpretation Comments POC-GLUCOSE METER 133 mg/dL 70-110 H : TESTED A T [facility] 6720 (BEAKER) (test code [facility], = 1538) [address]: Nuclear Supervising Operator/Techni heather ID = [id number] for LEWI S -Dillon, LATAND OG [id number] 08:17:46 Test Item Value Reference Range Interpretation Comments PARTIAL THROMBOPLASTIN TIME 86.4 seconds 22.5-36.0 H (BEAKER) (test code = 760) SRIRAM's Only(Ankle/Brachial Index)2021-06-02 08:03:53Ejection FractionSLEH ECHO HEARTLAB [facility]CK[facility](Ankle/Brachial Index)2021-06-02 08:03:53Ejection FractionSLEH ECHO HEARTLAB [facility]CK[facility](Ankle/Brachial Index)2021-06-02 08:03:53 Ejection FractionSLEH ECHO HEARTLAB MKCK[facility] SRIRAM's Only(Ankle/Brachial Index)2021-06-02 08:03:53Ejection FractionSLEH ECHO HEARTLAB MKCKESSON [facility]TT2022-04-25 00:44:06 Test Item Value Reference Range Interpretation Comments PARTIAL THROMBOPLASTIN TIME 114.8 seconds 22.5-36.0 H (ERIK) (test code = 760) POCT-GLUCOSE [id number] 22:35:29 Test Item Value Reference Range Interpretation Comments POC-GLUCOSE METER 161 mg/dL 70-110 H : TESTED A T [facility] 6720 (ERIK) (test code = [place], 1538) [address]: Nuclear Supervising Operator/Techni heather ID = [id number] for DARRION GARRISON Arterial Doppler Legs [id number] 19:15:49Ejection FractionSLEH ECHO HEARTLAB [facility]CKCor[facility] HospitalArterial Doppler Legs [id number] 19:15:49Ejection FractionSLEH ECHO HEARTLAB MKCKESSON [facility] Leg[facility] [id number] 19:15:49 Ejection FractionSLEH ECHO HEARTLAB [facility] Arterial Doppler Legs [id number] 19:15:49Ejection FractionSLE ECHO [facility], MIN 3 VIEWS, LEFT 2021-06-01 18:40:00Reason for exam:->rule out osteo 3rd digit left foot [facility] KRYSTA : 1945 Sex: MFINAL [...] the third toe. Signed: Jayesh Lino Verified Date/Time:06/01/2021 18:40:50 Reading Location: [facility] C013Y CT Body Reading Room APTT 2021-06-01 18:31:45 Test Item Value Reference Range Interpretation Comments PARTIAL THROMBOPLASTIN TIME 58.0 seconds 22.5-36.0 H (BEAKER) (test code = 760) POCT-GLUCOSE [id number] 17:10:34 Test Item Value Reference Range Interpretation Comments POC-GLUCOSE METER 144 mg/dL 70-110 H : TESTED A T [facility] 6720 ([facility]) (test code = [facility], 1538) 99016: Nuclear Supervising Operator/Techni heather ID = [id number] for ST OJCIC, NADA POCT-GLUCOSE [id number] 12:20:53 Test Item Value Reference Range Interpretation Comments POC-GLUCOSE METER 143 mg/dL 70-110 H : TESTED A T [facility] 6720 (BEAKER) (test code = [facility], 1538) 03278: Nuclear Supervising Operator/Techni heather ID = [id number] for ST OJCIC, NADA [id number] 12:06:45 Test Item Value Reference Range Interpretation Comments PARTIAL THROMBOPLASTIN TIME 63.1 seconds 22.5-36.0 H (BEAKER) (test code = 760) POCT-GLUCOSE [id number] 08:15:50 Test Item Value Reference Range Interpretation Comments POC-GLUCOSE METER 116 mg/dL 70-110 H : TESTED A T [facility] 6720 ([facility]) (test code = [facility], 1538) 62728: Nuclear Supervising Operator/Techni heather ID = [id number] for ST OJCIC, NADA VITAMIN B12 AND [id number] 07:04:04 Test Item Value Reference Range Interpretation Comments VITAMIN B12 952 pg/mL 213-816 H (BEAKER) (test code = 774) FOLATE (BEAKER) 13.00 ng/mL See_Comment [Automated message] (test code = 362) The system which generated this result transmitted ref erence range: >=7.00. The reference range was not used to interpr et this result as normal/abnormal . Nuclear Supervising Operator ID - PIAYA L(CELLAVISION MANUAL DIFF)2021-06-01 06:54:17 [...] CONCENTRATION Adequate (CELLAVISION)(BEAKER) (test code = 3438) Nuclear Supervising Operator ID - Ponce GisellonKlever comments: Slide comments:CBC W/PLT COUNT & AUTO [id number] 06:54:16 Test Item Value Reference Range Interpretation [...] (BEAKER) (test code = 413) HEPATIC FUNCTION [id number] 06:35:05 Test Item Value Reference Range Interpretation [...] (test code = 11 U/L 6-55 347) Nuclear Supervising Operator ID - DBC-REACTIVE [id number] 06:35:05 Test Item Value Reference Range Interpretation Comments C-REACTIVE PROTEIN (BEAKER) (test 2.32 mg/dL 0.00-0.50 H code = 676) Nuclear Supervising Operator ID - DBBASIC METABOLIC [id number] 06:35:04 Test Item Value Reference Range Interpretation [...] S NOT APPLICABLE FOR DIALYSIS PATIEN TS. Nuclear Supervising Operator ID - [id number] 05:49:53 Test Item Value Reference Range Interpretation Comments PARTIAL THROMBOPLASTIN TIME 41.1 seconds 22.5-36.0 H (BEAKER) (test code = 760) SARS-CoV2/RT-PCR (Asymptomatic ONLY)2021-06-01 05:02:05 Test Item Value Reference Range Interpretation Comments SARS-COV2/RT-PCR Negative Not Detected, (test code = Negative, See 40542-4) external report for linked test SARS-COV-2 [facility] (test code = 24424-4) CACHORRO (test code = Negative result for [...] of the Act. Fact Sheet for Healthcare Providers:https://www.[employer].Osmopure/sites/default/f sarah/product/documents/F act_Sheet_HC_Providers_L lkh_AWDQ-GvB-2.pdf Fact Sheet for Healthcare Patients:https://www.[employer].Osmopure/sites/default/fi les/product/documents/Fa ct_Sheet_Patients_Lyra_S ARS-CoV-2.pdf Performing Laboratory:[facility] [place] [address] [facility] (Asymptomatic ONLY)2021-06-01 05:02:05 Test Item Value Reference Range Interpretation Comments SARS-COV2/RT-PCR Negative Not Detected, (test code = Negative, See 59480-9) external report for linked test SARS-COV-2 [facility] (test code = 66686-1) CACHORRO (test code = Negative result for [...] of the Act. Fact Sheet for Healthcare Providers:https://www.[employer].Osmopure/sites/default/f sarah/product/documents/F act_Sheet_HC_Providers_L ubl_KGED-RjI-4.pdf Fact Sheet for Healthcare Patients:https://www.[employer].Osmopure/sites/default/fi les/product/documents/Fa ct_Sheet_Patients_Oliverio_S ARS-CoV-2.pdf Performing Laboratory:[facility] [place] [address] [facility]/RT-PCR (Asymptomatic ONLY)2021-06-01 05:02:05 Test Item Value Reference Range Interpretation Comments SARS-COV2/RT-PCR Negative Not Detected, (test code = Negative, See 16020-7) external report for linked test SARS-COV-2 [facility] (test code = 77106-5) CACHORRO (test code = Negative result for [...] of the Act. Fact Sheet for Healthcare Providers:https://www.[employer].Osmopure/sites/default/f sarah/product/documents/F act_Sheet_HC_Providers_L ygp_UMSO-GlO-6.pdf Fact Sheet for Healthcare Patients:https://www.[employer]/sites/default/fi les/product/documents/Fa ct_Sheet_Patients_Oliverio_S ARS-CoV-2.pdf Performing Laboratory:[facility], [place] [id number] [place], [place] [address]ARS-CoV2/RT-PCR (Asymptomatic ONLY)2021-06-01 05:02:05 Test Item Value Reference Range Interpretation Comments SARS-COV2/RT-PCR Negative Not Detected, (test code = Negative, See 28547-2) external report for linked test SARS-COV-2 [facility] [facility] PERFORM[facility] LAB (test code = 06946-9) CACH[facility] (test code = Negative result for [...] of the Act. Fact Sheet for Healthcare Providers:https://www.[employer]/sites/default/f sarah/product/documents/F act_Sheet_HC_Providers_L vel_MMJX-ZrE-2.pdf Fact Sheet for Healthcare Patients:https://www.fruux/sites/default/fi les/product/documents/Fa ct_Sheet_Patients_Lyra_S ARS-CoV-2.pdf Performing Laboratory:[facility] [place] [address] [facility] ([facility])2021-06-01 05:02:05 Test Item Value Reference Range Interpretation Comments SARS-COV2/RT-PCR (test Negative Not Detected, Negative, code = 7183696) See external report for linked test SARS-COV-2 PERFORMING LAB [facility] (test code = 2952741) Negative result for this test determines that [...] justifying the authorization of the emergency use ofin vitro diagnostic tests for detection and/or diagnosis of COVID-19 is terminated under Section 564(b)(2) of the Act or the EUA is revoked under Section 564(g) of the Act.Fact Sheet for Healthcare Prov iders:https://www.PNMsoft/sites/default/files/product/documents/Fact_Sheet_HC _Iklsxypqs_Wbec_XJDJ-QtT-3.pdfFact Sheet for Healthcare Patients:https://www.PNMsoft/sites/default/files/product/docume nts/Abgh_Qfjfj_Gefkuoga_Bdmp_VCSD-FlI-8.pdfPerforming Laboratory:[facility], [place] [id number] 23:51:02 Test Item Value Reference Range Interpretation Comments PARTIAL THROMBOPLASTIN TIME 50.6 seconds 22.5-36.0 H (BEAKER) (test code = 760) [id number] 22:57:30 Test Item Value Reference Range Interpretation Comments PARTIAL THROMBOPLASTIN TIME > seconds 22.5-36.0 HH (BEAKER) (test code = 760) POCT-GLUCOSE [id number] 22:35:55 Test Item Value Reference Range Interpretation Comments POC-GLUCOSE METER 149 mg/dL 70-110 H : TESTED A T [facility] 6720 ([employer]e-[employer] aeroplanes) (test code = [facility], 153) 68582: Nuclear Supervising Operator/Techni heather ID = [id number] for MARIO FOX POCT-GLUCOSE [id number] 17:26:04 Test Item Value Reference Range Interpretation Comments POC-GLUCOSE METER 187 mg/dL 70-110 H : TESTED A T [facility] 6720 (BEAKER) (test code = [facility], 153) 76991: Nuclear Supervising Operator/Techni heather ID = [id number] for BRANDON THOMPSONO, ZIGGY BASIC METABOLIC [id number] 15:13:01 Test Item Value Reference Range Interpretation [...] S NOT APPLICABLE FOR DIALYSIS PATIEN TS. Nuclear Supervising Operator ID - SARBJIT [id number] 15:10:38 Test Item Value Reference Range Interpretation [...] 0-0 (BEAKER) (test code = 413) POCT-GLUCOSE [id number] 16:02:46 Test Item Value Reference Range Interpretation Comments POC-GLUCOSE METER 75 mg/dL 70-110 : TESTED A T [facility] 6720 (BEAKER) (test code = [facility], 1538) 94807: Nuclear Supervising Operator/Techni heather ID = [id number] for CHARLOTTE MCHUGH RA POCT-GLUCOSE [id number] 15:30:00 Test Item Value Reference Range Interpretation Comments POC-GLUCOSE METER 74 mg/dL 70-110 : TESTED A T [facility] 6720 (BEAKER) (test code = [facility], 1538) 97629: Nuclear Supervising Operator/Techni heather ID = [id number] for Heriberto Algermaine BASIC METABOLIC [id number] 09:36:15 Test Item Value Reference Range Interpretation [...] S NOT APPLICABLE FOR DIALYSIS PATIEN TS. Nuclear Supervising Operator ID - NIURKA [id number] 09:30:12 Test Item Value Reference Range Interpretation Comments PARTIAL THROMBOPLASTIN TIME 33.8 seconds 22.5-36.0 (BEAKER) (test code = 760) Prothrombin time/[id number] 09:29:16 Test Item Value Reference Interpretation Comments Range Protime (test code = 16.6 See_Comment H [Autom ated 5902-2) message] The system which generated this result transmitted reference range : 11.9 - 14.2 seconds. The reference range was not used to interpret this result as normal/abnormal . INR (test code = 1.36 See_Comment [Automated 6301-6) message] The system which [...] valves. Lab Interpretation Abnormal (test code = 45857-3) [facility]/[id number] 09:29:16 Test Item Value Reference Range Interpretation Comments PROTIME (BEAKER) 16.6 seconds 11.9-14.2 H (test code = 759) INR (BEAKER) (test 1.36 See_Comment [Automat ed message] code = 370) The system J[employer] h generated this result transmitted ref erence [...] 0-0 (BEAKER) (test code = 413) SARS-COV2/RT-PCR ([facility])2020-11-07 20:30:42 Test Item Value Reference Range Interpretation Comments SARS-COV2/RT-PCR (test code = Negative Negative [id number]) Negative result for this test determines that [...] 564(g) of the Act.Testing was performed using [employer] SARS-CoV-2 assay.Fact Sheet for Healthcare Providers:https://www.RF Code/libby/RT SARS-CoV-2 HCP Fact Sheet 51- 150277.pdfFact Sheet for Healthcare Patients:https://www.RF Code/libby/RT SARS-CoV-2 Patient Fact Sheet EN 51-406963I0.pdfCBC W/PLT COUNT & AUTO [id number] 14:10:03 Test Item Value Reference Range Interpretation [...] CONCENTRATION Decreased (CELLAVISION)(BEAKER) (test code = 3438) Nuclear Supervising Operator ID - Niurka Mahajan comments: Slide comments:BASIC METABOLIC [id number] 12:39:39 Test Item Value Reference Range Interpretation [...] S NOT APPLICABLE FOR DIALYSIS PATIEN TS. Nuclear Supervising Operator ID - SARBJIT MPROTHROMBIN TIME/[id number] 11:55:55 Test Item Value Reference Range Interpretation Comments PROTIME (BEAKER) 18.8 seconds 11.9-14.2 H (test code = 759) INR (BEAKER) (test 1.60 See_Comment [Automat ed message] code = 370) The system [employer] generated this result transmitted ref erence range: <=5.90. The reference range was not used to int erpret this result as normal/abnormal . RECOMMENDED COUMADIN/WARFARIN INR THERAPY RANGESSTANDARD DOSE: 2.0 - 3.0 Includes: PROPHYLAXIS for venous thrombosis, systemic embolization; TREATMENT for venous thrombosis and/or pulmonary embolus.HIGH RISK: Target INR is 2.5-3.5 for patients with mechanical heart valves.RAD, FOOT, MIN 3 VIEWS, RIGHT 2020-10-16 14:28:00Reason for Exam:->STATUS POST AMPUTATION OF RIGHT GREAT TOEReason for Exam:->[facility] : 1945 Sex: MFINAL REPORT Exam: Right foot three views History: Amputation Comparison: August 27, 2020 Findings: Amputation across the hallux MTP joint. Overlying soft tissue irregularity. Soft tissue swelling. No progressive erosive change of the metatarsal. Vascular calcifications. Small calcaneal enthe sophytes. Impression: Amputation across the hallux MTP joint. No progressive osteomyelitis. Signed: Barbara Eubanks Verified Date/Time: 10/16/2020 14:28:01 Reading Location: [facility] [address] [place] [address] RAD, FOOT, MIN 3 VIEWS, RIGHT 2020-09-04 12:32:00Reason for Exam:->post-operative stateReason for Exam:- >status post amputation of right great toe [facility] : 1945 Sex: MFINAL REPORT Exam: Right foot three views History: Postoperative evaluation Comparison: June 25, 2020 Findings: Amputation across the MTP joint of the hallux with soft tissue irregularity. Bone demineralization of the metatarsal head without cortical erosion. Vascular calcifications. [place] plantar calcaneal enthesophytes. 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 Attention on follow-up. Signed: Barbara Eubanks Verified Date/Time: 09/04/2020 12:32:23 Reading Location: [facility] [address] [place] [address] XR foot 3 views [id number] 12:32:00Interface, External Ris In - 09/04/2020 12:34 PM CDTFINAL REPORT Exam: Right foot three views History: Postoperative evaluation Comparison: June 25, 2020 Findings: Amputation acrossthe MTP joint of the hallux with soft tissue irregularity. Bone demineralization of the metatarsal head without cortical erosion. Vascular calcifications. Dorsal and plantar calcaneal enthesophytes. 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 Attention on follow-up. Signed: Rene Eubanks Verified Date/Time: 09/04/2020 12:32:23 Reading Location: [facility] Reading Room [address] [place] [address] [facility] CenterT[facility] [id number] 16:35:00 Test Item Value Reference Range Interpretation Comments Case Report (test code Surgical Pathology = 104) Report Case: [id number] Authorizing Provider: Aleksandr Duong DPM Collected: 07/02/2020 01:10 PM Ordering Location: [facility] Received: 07/02/2020 01:28 PM SERVICES Pathologist: Nadine Butler MD Specimen: Toe, Right, right great toe DIAGNOSIS (test code = h2wclNIpBTKyy2lsWUGefYJ 3220) uZzEwMzNcZnRuYmpcdWMxIH tccnRmMVxlcGljOTIwMlxhb dVhZHRpsTBrP0UsawkqWDly ZY8kKP8vyHzndATftQXvZYU iScMup3dze416mDZpy3sjUG PDuxsdlLm5uEuiQ68jr9W0T wanW23ssPDxRKyfuUUnojwx wpBbPBQRZ5MsJTKIZ1dTESp SBTsMYSseKU4LZFYRFWeLYc uslMDpGP1eQ0ONU9KIUwVeJ L0UW9wEQP2KIBFDSV0dQE4Z YAEVNdXaPElUJ2LTGVAehvY uDHDXSjShP4lKLYZUBxOPAv 7LDePXXVOKRREJAK4II1GYE 0lTXHBhciAtIFNPRlQgVElT R7ISZOJRFDAEESGWTIXKVA9 qYC7RE6oYTPVzRpwgMH5OKC JFQSXDH6GCQTPQH5ASL7Sbn IFrWB1rERAUKSDBTMERRHIB UlRJTEFHRSBBVCBUSEUgTUF ZW9tZAXVHIeOKRVRKW3SZYF HldFGaYS4gViFSBEFDYlCrU b5DMR3WLJsGErQWE1sznABe PTYupi22VER3JwZud8Z6BFQ 7OISrAALow2oiKAVauWVjCh EwMzNcZnRuYmpcdWMxXGRlZ wYum1sbo318bVHnd7egOASn CaK1qJYbUIIdbUWwV219ACV oDKvhe4dik6ZkYXIfoMCcp5 O2XZPMwshfoVx0oKgjT41uo 8Y5PfkmR0dmLEDxHGLlT7Ap TJ5hQSLvVfv8JYV9AYV0SPH qSQUgF9KlFL1kGGHdmHKtWB r4f8zcpPsmSLOoQCW7q4utU MbmmqTcUP0lhx8xhQx9v2ls unCnICFqAWVitFHIQAVpP7K gjElqBs6ouKr5vVwfUaogIO X7Oob5JR4nqr58ktr7yXraF TSmjbwnNwK1HUsjXXWqgpfz KUt2JFawBDSlxAS3ZEDlfRS nL3ZhLHRyHV1wmeo0UYX6DJ qsJLPiDlF0WDTzkDVlZOKnz TmcZJsbj774SBF1MdOhXD1o J6Qad2A5qU6cjIHiXIEvsTQ qPcChJUQcaa9atTFiUGrbx1 JhTIO4fyX7cNRlgAGgOCWnI xL7VBsfII6svv47DZDwVSR4 fn4jgDQsnXdnytOnmFRdDBr hO3ScBANjs592UXNlW8MdWN Xds6T5wmByCvAjELCyoHE1x yG8MZXiGO4oeszly2fyMEas JJdwJWLebzN7bwS7RWKtqSE xC6GayP5hCOZiME1dxycmt4 ggXNK5JTvbIQBkAPE1OqSjE GRud6Doiut6CnSvp8IwnAGj NEumI69xz909GADezgSwO1k wbGFpblxwbGFpblxmMFxmcz L4BSZfHVlppjmmCXLlQCzoD 1yaSeImJWKpwRtiQUxpi6Ni XGYxXGZzMjJcdGFiXHRhYlx 0POIixLTpNDIsCxDpU4zgjj jvUjLTYPFvh5orL1didXTBs CKaM1GwLAiyrkZkZJaiXOle ILRdXJX1NW46GKA5TSJkuc6 9 CPT Code(s) (test code l5invOPxGCBnnHP2OmFcOQY = 3357) fw1ipe3TfgYXtxLIdXAlcdK AvohNeyy73pZZ9xI66ZD8rV VVrRiC6QJWzndT9Ybq6RQEo KPYqnBUcE642y4yui9xczcP kwVL0hEdzVFKmEBNxSIcjES DvMhXvICsrLLM4SBq0LhCeD HBhcn0= CLINICAL HISTORY (test j0eqoCQrCYJwqAP3ZmQvHEM code = 3356) go4emx3XkhZGayINpUBazvF PbsvXvlh78xZQ9fO18WV8xF VWpRwL7ZBRnvnW8Lzy8TTTv VOAlnYYiN939s8pgk1hmcuH ovDU4oKsdTCMqRFLtQVryVQ WmIlWaH9HqK7YielEadSOxg Q== SPECIMEN SOURCE (test x3gsjKZdSMFxwMR4ClOcTXX code = 3377) fa1ufs3LndGMreNKpLPjaaO XzytWnmm38vNR2wQ83YN1vO ATyWsB7AMNxriB2Xrt4ULJa GFCbnPFsO095b2gjd0xfbzG syWV2wRflEHCmNBHlWWruOQ PpApOzGA3iPVFzvNtrxIlhD XJ9 GROSS DESCRIPTION e8zdmPYvBQXlyCIcXmKdGZM (test code = 3366) gGKJlb4qyBNNesGNwKfCyKj NcZnRuYmpcdWMxXGRlZmYwe 9qei790sOKzh3tuLLQwCoX6 sEMoFCTdnYAhX379e3awt1e njkBbqRB6GFXfZED9XEnjwz RyouU9BAyqaNSeApN0MYazj iVuBTstgiXmjmPfEuj5OHCw Z961NXT6dQzuk7qfOCS4YJY bQLFgVxXuWa7jaPGbP753BZ YbKXFNVHUaiEy1QEGtipMmf xAsxBVHu599S127i9uoJRQz wjSfiTjVcubvi3rlZ639ZJV hcGVydzEyMjQwXHBhcGVyaD N9UKBkER0fpxbjMpPaUI0pa vwvHvQbYP2rgnq2KuDtXM3u cmdiNzIwXGhlYWRlcnkwXGZ sv0GvfdmhVD9iI7Pvp8G2fS 9maXRcZGVmdGFiNzIwXGZvc z4uwPJxZZkpf9KpGBN1fiP8 vOKqqOQiJGJvKS20Lubgl2H kOwzlQUG5ZOOfjkJaj6Ecw0 vjXxDpldHrV4rrB3HtDOEqL JNdGDHzVvGswuKbh5Gei1Gs aUEcnGy1w7xtAJFrFDOiqQr qy8yjBFI4JCJoC5X0jYRxx3 veFDybPTXilJL2dudwANdoM NBrraL7vgniTVpaPVEoxZJ0 sixgXJzkJQMbKcG3cywoSJf uJMOcDKP7YRxqv534NPZ8UZ xzYmtwYWdlXHBnbmNvbnRcc GduZGVjXHBsYWluXHBsYWlu XGYwXGZzMjRccWxccGxhaW5 yJxAqBjAaVAnzZW1cGAAmL1 braFTcTVYrXWGcY4iiBwFrh L6biLyiUTubjpPjLCQkPTLf O1BcueWiKKJdUBBfOVurYmP aDHUpm9z0gBX3uDOlkTM0nI MasRwhJkBnLD7qkDNnEW9uE AneGYelzyYng5HhOV56gNVh ciBhbmQgInRvZSwgcmlnaHQ uFZfvLPTfHJquSTU4jGN7tH V0QXFsyW8eBV7tTOC5ioyyR bS5KoSwZ51edW1rmTRfV9Ih IGFuZCAzIGNtIGluIGRpYW1 ldGVyLiAgVGhlcmUgaXMgYS Rwa33zTHx6WSK8tQEizXLzQ TV1eZymj7CrPVDhCFEidi67 GSesg1dlkF8wzQbnOeCpUBp uCQwrsBJqMQejc6PcRxUrKP JxhEXydZQ1thUiCKOhaNVdT byvsAZfXsCnW16uN8JuQ7Ab jp61fkW7cSInpiZtw6CedBF hKBQyVcHaaNRseo7tZIXyMX Xqt6fdIT0chnpwlbVqgzPsS TIbuCTyko7dCXRjZQJxhRAi caLmW4GoDGNhCXTht95hVoW iFUalpuXagRPiLN8vZFW2wp JudxMdRV9euT30HM2fBQOld C1hFGckS95sp7NioCpegaI0 kVYyKSJsbQRqICehJYT6qzR aiG9uxG8wNGKzGED4mWXtqk 1lCNBgWMQ7tbFtwfo7kN6cD GJvbmUgaXMgcmVkIGFuZCBo MP9fkrYeXNibVlhlQC0yNFE 9nGPmJPCoiNa6AFmizIsiWS YyG6WcxEYeDOHiSGIqNrVbK wPlqhJwSX82DVCbcdRck9Uf sVqtjxTkKHEuENR0Vd5qoNJ jJV5vbKAqNSQfykIAJJY7lT 0pWKQtINT8CGKtcfVZRAikH QfeVCAcfB3iiOwnEYNrz7Xh v3Had3lmryQlQPRrhB7mHGQ prIDzXXOaJLFdMZ7waEE6qM ZsKKFfK6Vxp39qGVbecZyla R2qPSUraSfxSaWjy55aKUVm a0ucp2pjzjbhIDDvKPbddBR qR1A7uK9eSKKkugAGRygpUT ecDAK6yGX8oIP8DVZkAM9qX I2dDAIvtwUyLXEsXIAkQ1Bu FOIhaUqsk0xbTdRcBABkuEX dUomxSAXeh06sbBLnFWYmwz DFlOMux5PeOQxoGGHoULQDF ONzLEZYYNbPV0EIXGLgXTTp cn0= MICROSCOPIC z4uuqSRyFUJiqOP5FfLdCOQ DESCRIPTION (test code pp2jzy3WieXHfuOGaNTtdxZ = 3371) HavlQtlw71yWI6cE16JU9eF BTmGaJ1MACuqfK0Qef1ZCLe GZKolOCjX052d6dbl0mtfyW oaMM3xQmgRAZkXQBnHZipXT VtEfEcCQRGQl8QQENKVDJvz n0= [facility] [id number] 16:35:00 Test Item Value Reference Range Interpretation Comments Case Report (test code Surgical Pathology = 104) Report Case: [id number] Authorizing Provider: Aleksandr Duong DPM Collected: 07/02/2020 01:10 PM Ordering Location: [facility] Received: 07/02/2020 01:28 PM SERVICES Pathologist: Nadine Butler MD Specimen: Toe, Right, right great toe DIAGNOSIS (test code = d4bwiJXnASTew0hqDQQhlLS 3220) uZzEwMzNcZnRuYmpcdWMxIH tccnRmMVxlcGljOTIwMlxhb mUcDIWooFBdC0NjuhnqESjh IL2uPS4llTqehHGflSKlBQG rBfDjz3lke059cNUev6boPS NLsycipUt2zKmgE22jh0B0L zccK21teXRhKEgtuKLrtzgd umGoUBUNT8NbUQRDX9kBPCm XOVhWTRycZD0ICMYGLKwYNk dkmDYrEZ0bM8YBT8QBIiVeW X6UK4jARY4BCYRCCP3tHO4G KBUOLcDoOOdPG3ARRKBbmwV aXEGKNvXeF0qXHODITsVHSn 2WDzDLGIVGDLAUUZ4ZD8AZF 0lTXHBhciAtIFNPRlQgVElT P8HQOLBEUMEYTCIWZPBWNX7 pVB6GY5lYVSIrZnjkTE5JNL FQBSWBC2FYXIIEN3QLM4Sfn HVfLS0bYQYDLXREIFEHSQOT UlRJTEFHRSBBVCBUSEUgTUF YZ5sKLUOIQzNTBYDHZ0WDFG LrjIGvZL5aLiWKFEWABvFnS e0SEU2YBEuVSiQRA2dvrOVq WRXeso59WUO9JtLgl1E6SMA 0QYHtYVDgg3rhDQGjyBLoFc EwMzNcZnRuYmpcdWMxXGRlZ cYfl1dmn093aLZzv6dfBJTh CbZ6wMFdNTUpuDJrP466VBH oHOgqt8tcs5QcPIQwoAMfn6 S1WBTCeogkrKc3wDkfW12qa 5Y5BtpnM1urNDZzBWXsG1Qp AM2ySMLjUth9KIA6LJT2KPZ iDPZdK8LpBX7sQDQnaZOgZG d7g5imhGywNATuOOX1n8otZ DyvjaYfXU6frz0vmJy4t5uv anNhKKNtOPYzxIFBGTXgE7A cnExwLa8rdAd9lLdrWgphCA T1Qnn9WA2pnc74gzh5vCnxU UFroflkAbB4ETniYEAgbbwj SCu9WVbrWPCcoOD1FQLrwNB aW1PbRQKcGV5nofp5PAQ0XQ hpXILtBxW0PNEdrCAnAGFeu GqkEHhar972RXM8SjGcDP3i M6Bqw8Y8bR3jhDWaAJJthFO uLkFcXWOksd7mbABuDHsma6 MuTCS3ciW0uTByrTYjBBJkG sG1KGxxPR1smg45VENiFMS1 zt2dkGNduRaublVwdXLbWXp kA2XhDSApy772TPDuD9UyKI Aai1Q5vaDcLzXgSKDwoIT4k zD8WFDuSF9hbbjlk4hsJUoy QVcbUOOjbyP6hnM4CPZddUO tE6ZcrI6gCKYcRO8ysxezn6 xuXIC9UIrvMYPpUCL7SuXuG NFpp0Tnryo1LmVwd6DcgQJp TEuwA16rx512UXOtjwFzL1x wbGFpblxwbGFpblxmMFxmcz E2XSIoSWpgspcePNTbUOfvD 3ylFgVnTKSttIaaGXlnj6Wz XGYxXGZzMjJcdGFiXHRhYlx 3GRJzaLVoRLCyGsRjN7wbmt pfHeQLOSJye7ayS9uplTLIk YQfC7IxOLmawbLrZAzgTQcn IDUrDNI8GR99YUE4WPUmrg7 9 CPT Code(s) (test code c9eyqZTpMVLkwTU6PpKjYNF = 3357) qt8vqb1JswUEqsEVzJTokiW UpmcFlmg99vDR8xC64VX5uF XKvSiI3KBModkR9Qkt1TRHj ODSgdNUoZ527d6ihr2nfnlP pcYN4tEpzKOUzLMGsBYiwYS XrWfAgUWtcUTB4XKe2PeBeE HBhcn0= CLINICAL HISTORY (test t3punUPrHRYwzLO3PvWtFKA code = 3356) ft4hof7YxwWUvrTApHEdkcR DuowRcjw79oTB2gK54GX3xG ZIlIqQ0VKQculJ5Xce8GMCr GCTdoRBwI852c5csz8nmjlF faUC7pEkoAMJoUOHfNRhuEM WbYvIkV6VsE0WjtaQwkTJwx Q== SPECIMEN SOURCE (test f1tgiKMyJVFxqYG5QgXkABD code = 3377) gb8snx2AumPVaoMJhVAhozE PyffEkab66qIC5fU59HV3zT TGnQlP1XVHdsnN3Nri2MAVs XWHckLIfQ558s5skn2ndffU uqDK2yNtaWLTjULDvIRgfJT MgJiRtAD2zFDQroPeejBpsB XJ9 GROSS DESCRIPTION b3hbvAVqQXIvlBQbTnDmNAC (test code = 3366) uRGVqh2bfGHIjwIVgRzJpIw NcZnRuYmpcdWMxXGRlZmYwe 1mqo704pTTgr0ucUQKiYgG4 jNNgGNNvmCQqN800k3jhl1m xloBpoIT6DNCaWAJ5HWndiv XulbF3KBmwvPRqQlV2UTzzh yZaLWocnnBqplIgHpd1SSXr D462EDE4mIich2gdZGL5NKT pNAHsRmHfBh0gzTVbJ188LO BvDGLMWWJayYl2LHCwsvTpd gNzrTKJr436K007e1ngZGMo mqRrrFlFssgqd8cwW688NHQ hcGVydzEyMjQwXHBhcGVyaD F9EAPjAB2mehieFaPbHJ3im uimZvVrMG8vsdt2BhCrPN4x cmdiNzIwXGhlYWRlcnkwXGZ oh5TwxrkbRZ4uS5Umr0X4uC 9maXRcZGVmdGFiNzIwXGZvc j8crKMtHEtkw1DuTBO1hwG5 qHRdsSDvFPBnLG58Cpjxe3D rUicjJTQ4EHYpqtKdh9Weg8 thSbFarcQgF3chI2MfMENrJ MZhHNIzUyYzrcRgm9Rgr1Zm zRJviCj7d3qsQLCdSMPwkEr do5ozXOS2SONjN2A2jFZsg0 lhHLsjOGPogDN8xjooVNxnJ JBxymJ9acgnJPjnOPTlyLN9 xbnnPEdcFTBdSxD5nhupTSx wBSImPEA9MUsxu199CNG8CT xzYmtwYWdlXHBnbmNvbnRcc GduZGVjXHBsYWluXHBsYWlu XGYwXGZzMjRccWxccGxhaW5 nLjFjTwUgABvjQC6iPRAdI7 vlaXTuDWYyELNvO6naXnVko M2rjMgwMEmeopFtFQMeEOOg O0ZsuyHuTEWmCOIrBThgQlI mPTFjc6n6kYL1nUDtgIV3vU KtvAgvJmPhGY8xhDRaJT6lI PtgMWpdxzGob9DfWV24mJTt ciBhbmQgInRvZSwgcmlnaHQ uESobLKSzGNrqBPP4sUS7tP A7EDHhgI8oFR4kIWP9imssM eG6XbQuS22ezY7pbMKbK1Zz IGFuZCAzIGNtIGluIGRpYW1 ldGVyLiAgVGhlcmUgaXMgYS Epp84eJGv6KZA2eOPthGMvR BE5sJhwh5OaFPRsHSUwme80 AVvrh4nmvG7nwVvlWdFnPKq rQKgbpSEbPBrza0RnTdLlDD UxhCGwkBS5siVvTHMojGGuU rsdqFXsMkAvJ96cH6KlB4Cx oa36sjB1kNHgtyXov6BqaXM qHIHjRvJfwEPiee4cJQCgAI Gdu5tmAQ6bgydlokPwzbHrG VSvwMOvds3mHRGyJWMtyMPa cmXcJ2YaXFJhILUhr42pHbN zFUlzwiOxtUIhZE6qSJC6pk QgjmBpJB7ogL42CN6kBEYed S2oWYofR80yv6KvgUwnyrY5 tBAhZDAdjQBgQKpxVKJ2xnA taF6qfY5dHVXjVQK0sNOrui 2uFGAuKEC3zhAjnaw5iK5rM GJvbmUgaXMgcmVkIGFuZCBo KY0kecIwLAicHwliZJ4cUQK 5fWKjYWRevXs3JKhuzSlnYW NnL6NcaUHkSMOyWGCyQqVzC sQtueKwVH48NLPgbxIpo4En fSefxaGyYNEcOGU3Cd2ffGR uJJ9xrGFxGUFghpSFCFT2dI 2jJSEdEHU6BFCsnxLPBMwpA NmeULNroU8gkLfmORYfp5Bx h5Xdf3lidnJkHZEtaT1pFNV vpZDlJUFiMRIaTJ0lxFE0jB VjQQRfT5Blb60bLMxtnCtdw X7oDVWdgJueMjWig39vEABi p7ryt3dcngsvTGHfJKlwrDT yO3K5cX1qKDVpwrIEUyeuYG tdZIZ5iSZ9xFN7VBXgIV8rS R2bWCUzwvFqFXYoUGAqC2Fp WKYfzCcze3mcCyXeIEArlKT rXoceOQMfy99mePSaQZRzco PDrRQnl5IcHEyeKSBeBWHTV CLoZEYXJSqPO7FKKJCfHXJv cn0= MICROSCOPIC v2mokKQxWEFuyDL3SgKvMGF DESCRIPTION (test code wr3xaa9RqtGUllACeAVkstJ = 3371) HwlnRrfe02kUN1sD40DB1oH ZSnDcR8WZZsjbZ5Smb4YMRm SFXvlXJjS176j6zyd2cuyrO lbLB6aKmjCYPqMNIfOKflAW VwDdQsHVUGGe8YMERYUCEka n0= [facility] [id number] 16:35:00Surgical Pathology Report Case: [id number] Authorizing Provider: Aleksandr Duong DPM Collected: 07/02/2020 01:10 PM Ordering Location: [facility] Received: 07/02/2020 01:28 PM SERVICES Pathologist: Nadine Butler MD Specimen: Toe, Right, right great toe FOOT, RIGHT HALLUX, AMPUTATION:- GANGRENE INVOLVING SKIN AND SOFT TISSUE- BONE WITH INTER-TRABECULAR NECROSIS- SOFT TISSUE AT THE MARGIN INVOLVED BY INFLAMMATORY PROCESS- ARTICULAR CARTILAGE AT THE MARGIN, UNREMARKABLE- NEGATIVE FOR MALIGNANCY Signing Pathologist Direct Phone Line: [phone] signed by Nadine Butler MD on 07/30/2020 at 4:35 [id number]; [id number], rightA. Received fresh labeledwith the patient's name, medical record number and "toe, right" is a disarticulated toe measuring 7.3 cm in length and 3 cm in diameter. There is a loosely attached, thickened, morales-yellow unguis. The lateral surface displays a 2 x 1.7 x 0.2 cm gangrenous ulcer located 0.7 cm from the skin margin and 4cm from the disarticulated bone. There is an abundant amount of skin discoloration with slippage surrounding the ulcer. The underlying bone is red and hemorrhagic, and cuts easily with a scalpel blade.Senior Bookkeeper sections are submitted.Section code:A1: Ulcer to the closest skin margin (blue), perpendicular sections with underlying bone, following decalcificationA2: Disarticulated end of bone, en f alexis, following decalcificationChelsea BRIANNA Medina, TERRIE ([facility])cmPERFORMEDCARDIAC CATH REPORT - [id number] 10:37:11Ordered by an unspecified provider.[facility]-Glucose [id number] 11:15:00 Test Item Value Reference Range Interpretation Comments POC-Glucose Meter (test 283 mg/dL 70-110 H : TE STED AT [facility] code = 1538) [address] [facility], 770 30: Nuclear Supervising Operator/Techni heather ID = [id number] for LEIJA, SERKAL EM Lab Interpretation (test Abnormal code = 09821-7) [facility]-GLUCOSE [id number] 11:15:00 Test Item Value Reference Range Interpretation Comments POC-GLUCOSE METER 283 mg/dL 70-110 H : TESTED A T [facility] 6720 (BEAKER) (test code = [facility], 1538) [address]: Nuclear Supervising Operator/Techni heather ID = [id number] for IB RAHIM, SERKALEM CBC with platelet count + automated [id number] 08:27:00 Test Item Value Reference Range Interpretation Comments WBC (test code = 6690-2) 15.3 See_Comment H [A utomated message] The system [employer] generated this result transmitted ref erence range: 3.5 - 10 .5 K/L. The refe rence range was not u sed to interpret this result as normal/abnor mal. RBC (test code = 789-8) 2.98 See_Comment L [Au tomated message] The system [employer] generated this result transmitted ref erence range: 4.63 - 6 .08 M/L. The refe rence range was not u sed to interpret this result as normal/abnor mal. MCHC (test code = 786-4) 31.1 See_Comment L [A utomated message] The system [employer] generated this result transmitted ref erence range: [...] See_Comment [Aut omated message] 777-3) The system [employer] generated this result transmitted ref erence range: 150 - 45 0 K/CU MM. The referen ce range was not u sed to interpret this result as normal/abnor mal. MPV (test code = 9.2 fL 9.4-12.4 L 53677-1) nRBC (test code = 413) 0 See_Comment [Aut omated message] The system [employer] generated this result transmitted ref erence range: 0 - 0 /1 00 WBC. The refere nce range was not u sed to interpret this result as normal/abnor mal. Lab Interpretation (test Abnormal code = 58052-7) [facility] [id number] 08:27:00 Test Item Value Reference Range Interpretation [...] = 3438) CACHORRO (test code = CACHORRO) Nuclear Supervising Operator ID - Irena Chen comments: Slide comments: Lab Interpretation (test Abnormal code = 06755-3) [facility] W/PLT COUNT & AUTO [id number] 08:27:00 Test Item Value Reference Range Interpretation [...] CONCENTRATION Adequate (CELLAVISION)(BEAKER) (test code = 3438) Nuclear Supervising Operator ID - Irena Chen comments: Slide comments:POCT-GLUCOSE METER 2020-07-05 08:06:00 Test Item Value Reference Range Interpretation Comments POC-GLUCOSE METER 149 mg/dL 70-110 H : TESTED A T [facility] 6720 (BEAKER) (test code = [place], 1538) [address]: Nuclear Supervising Operator/Techni heather ID = [id number] for LIN CERVANTES Basic Metabolic [id number] 04:49:00 Test Item Value Reference Range Interpretation Comments Sodium (test code = 138 meq/L 507-283 0659-2) Potassium (test code = 4.0 meq/L 3.5-5.1 2823-3) Chloride (test code = 107 meq/L 98-107 2075-0) CO2 (test code = 21 meq/L 22-29 L 2028-9) BUN (test code = 18 mg/dL 7-21 3094-0) Creatinine (test code 1.38 mg/dL 0.57-1.25 H = 2160-0) Glucose (test code = 161 mg/dL 70-105 H 2345-7) Calcium (test code = 8.8 mg/dL 8.4-10.2 22819-4) EGFR (test code = 50 mL/min/1.73 [place] [address]-4) NOT ACCURATE CREATININE CLEARANCE IN PREDICTING GLOMERULAR FILTRATION RATE . ESTIMATED GFR I S NOT APPLICABLE FOR DIALYSIS PATIENTS. CACHORRO (test code = CACHORRO) Nuclear Supervising Operator ID - [id number] Deras Lab Interpretation Abnormal (test code = 66018-4) [facility] [id number] 04:49:00 Test Item Value Reference Range Interpretation [...] S NOT APPLICABLE FOR DIALYSIS PATIEN TS. Nuclear Supervising Operator ID - PIAYA LPOCT-GLUCOSE [id number] 21:36:00 Test Item Value Reference Range Interpretation Comments POC-GLUCOSE METER 167 mg/dL 70-110 H : TESTED A T [facility] 6720 (BEBANNER) (test code = SHRAVAN Raymond [facility], 1538) [address]: Nuclear Supervising Operator/Techni heather ID = [id number] for Raghu barone (pca2) [place] POCT-GLUCOSE [id number] 17:51:00 Test Item Value Reference Range Interpretation Comments POC-GLUCOSE METER 156 mg/dL 70-110 H : Notified RN/MD: (BEAKER) (test code = TESTED AT [facility] 6720 1538) [facility], [address]: Nuclear Supervising Operator/Techni heather ID = [id number] for Hank Wattsah (CELLAVISION MANUAL DIFF)2020-07-04 15:55:00 [...] CONCENTRATION Adequate (CELLAVISION)(BEAKER) (test code = 3438) Nuclear Supervising Operator ID - Juana Astudillo comments: Slide comments:BASIC [...] S NOT APPLICABLE FOR DIALYSIS PATIEN TS. Nuclear Supervising Operator ID - DBCBC W/PLT COUNT & AUTO [id number] 15:17:00 Test Item Value Reference Range Interpretation [...] WBC 0-0 (BEAKER) (test code = 413) [id number] 12:36:00 Test Item Value Reference Range Interpretation Comments PTT (test code = 102.6 See_Comment H [Automated message] 76303-4) The system [employer] generated this result transmitted ref erence range: 22.5 - 3 6.0 seconds. The reference range was not used to int erpret this result as normal/abnormal . Lab Interpretation (test Abnormal code = 32560-4) [facility] 12:36[facility]00 Test Item Value Reference Range Interpretation Comments PARTIAL THROMBOPLASTIN TIME 102.6 seconds 22.5-36.0 H ([facility]) (test code = 760) POCT-GLUCOSE [id number] 12:25:00 Test Item Value Reference Range Interpretation Comments POC-GLUCOSE METER 212 mg/dL 70-110 H : [facility]) (test code = [facility], 153) [address]: Nuclear Supervising Operator/Techni heather ID = [id number] for Marj Watts POCT-GLUCOSE [id number] 07:39:00 Test Item Value Reference Range Interpretation Comments POC-GLUCOSE METER 162 mg/dL 70-110 H : [facility]) (test code = [facility], 153) [address]: Nuclear Supervising Operator/Techni heather ID = [id number] for EMANI DELGADO [id number] 05:06:00 Test Item Value Reference Range Interpretation Comments PARTIAL THROMBOPLASTIN TIME 64.8 seconds 22.5-36.0 H ([facility]) (test code = 760) [id number] 23:50:00 Test Item Value Reference Range Interpretation Comments PARTIAL THROMBOPLASTIN TIME 59.1 seconds 22.5-36.0 H ([facility]) (test code = 760) POCT-GLUCOSE [id number] 21:25:00 Test Item Value Reference Range Interpretation Comments POC-GLUCOSE METER 156 mg/dL 70-110 H : [facility]) (test code = [facility], 153) [address]: Nuclear Supervising Operator/Techni heather ID = [id number] for LEVON LEE POCT-GLUCOSE [id number] 17:25:00 Test Item Value Reference Range Interpretation Comments POC-GLUCOSE METER 162 mg/dL 70-110 H : Notified RN/MD: ([facility]) (test code = TESTED AT [facility] 6720 153) [facility], [address]: Nuclear Supervising Operator/Techni heather ID = [id number] for Marj Watts [id number] 15:41:00 Test Item Value Reference Range Interpretation Comments PARTIAL THROMBOPLASTIN TIME 46.0 seconds 22.5-36.0 H (ERIK) (test code = 760) [id number] 15:13:00 Test Item Value Reference Range Interpretation Comments PARTIAL THROMBOPLASTIN TIME > seconds 22.5-36.0 HH (ERIK) (test code = 760) POCT-GLUCOSE [id number] 12:24:00 Test Item Value Reference Range Interpretation Comments POC-GLUCOSE METER 166 mg/dL 70-110 H : TESTED A T [facility] 6720 (ERIK) (test code = [place], 1538) [address]: Nuclear Supervising Operator/Techni heather ID = [id number] for LEVON LEE SARS-CoV2/RT-PCR (Asymptomatic ONLY)2020-07-03 08:16:00 Test Item Value Reference Range Interpretation Comments SARS-COV2/RT-PCR Negative Not Detected, (test code = Negative, See 48870-9) external report for linked test SARS-COV-2 [facility] PERFORMING LAB (test code = 91085-9) CACHORRO (test code = Negative results do [...] of the Act. Fact Sheet for Healthcare Providers:https://www.Groupize.com.Osmopure/Documents/Xper t%20Xpress%20SARS%20CoV- 2/Fact%20Sheets/302-3802 %64PCQA-VRC-0%20HEALTHCA RE%20PROVIDERS%20FACT%20 SHEET.pdf Fact Sheet for Healthcare Patients:https://www.Sociagram.com/Documents/Xpert %20Xpress%20SARS%20CoV-2 /Fact%20Sheets/3023801% 72UMXU-ADG-2%20PATIENT%2 0FACT%20SHEET.pdf Performing Laboratory:[facility], [place] [address] [place], [place] [address]ARS-COV2/RT-PCR ([facility])2020-07-03 08:16:00 Test Item Value Reference Range Interpretation Comments SARS-COV2/RT-PCR (test code Negative Not Detected, Negative, = 3382773) See external report for linked test SARS-COV-2 PERFORMING LAB [facility] (test code = 8842354) Negative results do not preclude SARS-CoV-2 infection [...] of the Act.Fact Sheet for Healthcare Pro viders:https://www.Global Roaming/Documents/Xpert%20Xpress%20SARS%20CoV-2/Fact%20Sh eets/3023802%00FCLH-VBQ-6%20HEALTHCARE%20PROVIDERS%20FACT%20SHEET.pdfFact Sheet for Healthcare Patients:https://www.cepLive Mobile id.com/Documents/Xpert%20Xpress%20SARS%20CoV-2/Fact%20Sheets/302-3801%20SARS-COV -2%20PATIENT%20FACT%20SHEET.pdfPerforming Laboratory:[facility], [place] [address]IDEE-YOFGLFA [id number] 08:12:00 Test Item Value Reference Range Interpretation Comments POC-GLUCOSE METER 152 mg/dL 70-110 H : TESTED A T [facility] 6720 (BEAKER) (test code = SHRAVAN Raymond [facility], 1538) [address]: Nuclear Supervising Operator/Techni heather ID = [id number] for LEVON LEE BASIC METABOLIC [id number] 05:19:00 Test Item Value Reference Range Interpretation [...] S NOT APPLICABLE FOR DIALYSIS PATIEN TS. Nuclear Supervising Operator ID - TUSHAR [id number] 04:52:00 Test Item Value Reference Range Interpretation Comments PARTIAL THROMBOPLASTIN TIME 37.1 seconds 22.5-36.0 H (BEAKER) (test code = 760) CBC (Hemogram only)2020-07-03 04:41:00 Test Item Value Reference Range Interpretation Comments WBC (test code = 6690-2) 14.4 See_Comment H [A utomated message] The system [employer] generated this result transmitted ref erence range: 3.5 - 10 .5 K/L. The refe rence range was not u sed to interpret this result as normal/abnor mal. RBC (test code = 789-8) 2.85 See_Comment L [Au tomated message] The system [employer] generated this result transmitted ref erence range: 4.63 - 6 .08 M/L. The refe rence range was not u sed to interpret this result as normal/abnor mal. MCHC (test code = 786-4) 31.6 See_Comment L [A utomated message] The system [employer] generated this result transmitted ref erence range: [...] See_Comment [Aut omated message] 777-3) The system [employer] generated this result transmitted ref erence range: 150 - 45 0 K/CU MM. The referen ce range was not u sed to interpret this result as normal/abnor mal. MPV (test code = 9.0 fL 9.4-12.4 L 22794-2) nRBC (test code = 413) 0 See_Comment [Aut omated message] The system [employer] generated this result transmitted ref erence range: 0 - 0 /1 00 WBC. The refere nce range was not u sed to interpret this result as normal/abnor mal. Lab Interpretation (test Abnormal code = 29338-3) [facility] (HEMOGRAM ONLY)2020-07-03 04:41:00 Test Item Value [...] 0-0 (BEAKER) (test code = 413) SARS-COV2/RT-PCR ([facility])2020-07-02 20:04:00 Test Item Value Reference Range Interpretation Comments SARS-COV2/RT-PCR (test Negative Not Detected, Negative, code = 5124543) See external report for linked test SARS-COV-2 PERFORMING LAB [facility] (test code = 1292608) Negative result for this test determines that [...] justifying the authorization of the emergency use ofin vitro diagnostic tests for detection and/or diagnosis of COVID-19 is terminated under Section 564(b)(2) of the Act or the EUA is revoked under Section 564(g) of the Act.Testing was performed using the Pacheco SARS-CoV-2 assay.Fact Sheet for Healthcare Providers:https://www.[employer].pacheco/libby/RT_SAR D-XdQ-7_DDP_Jzvw_Zpvvv_45-265678.pdfFact Sheet for Healthcare Patients:https://www.[employer].pacheco/s al/IX_DHHH-TrB-3_Fuuevyy_Vjwk_Elmsb_LA_79-603713S9.pdfPerforming Laboratory:[address] [place] [address] POCT-GLUCOSE [id number] 17:56:00 Test Item Value Reference Range Interpretation Comments POC-GLUCOSE METER 155 mg/dL 70-110 H : TESTED A T [facility] 6720 ([facility]) (test code = [facility], 1538) [address]: Nuclear Supervising Operator/Techni heather ID = [id number] for Jazmin Hu POCT-GLUCOSE [id number] 17:55:00 Test Item Value Reference Range Interpretation Comments POC-GLUCOSE METER 166 mg/dL 70-110 H : TESTED A T [facility] 6720 (Aztek NetworksAKER) (test code = [facility], 1538) [address]: Nuclear Supervising Operator/Techni heather ID = [id number] for Ra mirwagner Jazmin CBC (HEMOGRAM ONLY)2020-07-02 17:45:00 Test Item Value Reference Range Interpretation Comments WHITE BLOOD CELL COUNT (AKER) 14.8 K/ L 3.5-10.5 H (test code [...] (BEAKER) (test code = 413) Vancomycin level, [id number] 16:47:00 Test Item Value Reference Range Interpretation Comments Vancomycin Rm (test 9.9 ug/mL code = 58947-8) CACHORRO (test code = Reference Range: No CACHORRO) NormalsOperator ID - BS [facility]ery[facility], [id number] 16:47:00 Test Item Value Reference Range Interpretation Comments Vancomycin Rm (test 9.9 ug/mL code = 47733-8) CACHORRO (test code = Reference Range: No CACHORRO) NormalsOperator ID - BS [facility]isVANCOMYCIN LEVEL, [id number] 16:47:00 Test Item Value Reference Range Interpretation Comments VANCOMYCIN RANDOM (BEAKER) (test 9.9 ug/mL code = 523) Reference Range: No NormalsOperator ID - BSPOCT-GLUCOSE [id number] 14:40:00 Test Item Value Reference Range Interpretation Comments POC-GLUCOSE METER 167 mg/dL 70-110 H : TESTED A T [facility] 6720 (BEAKER) (test code = [place], 1538) [address]: Nuclear Supervising Operator/Techni heather ID = [id number] for ANGIE WHEELER RK ECG 12 [id number] 13:53:08Interface, External Ris In - 07/02/2020 1:53 PM CDTVentricular Rate 70 BPMAtrial Rate 76 BPMQRS Duration 114 msQ-T Interval 416 msQTC Calculation(Bazett) 449 msR Ackerman 2 degreesT Ackerman -[address] and T wave abnormalityAbnormal ECGWhen compared with ECG of 30-JAN-2017 01:13,ST less depressed in Anterior leadsT wave inversion no longer evident in Anterolateral leadsConfirmed by MD Morocho Roberto ([id number]) on 07/02/2020 1:53:05 [facility] & AUTO [id number] 09:24:00 Test Item Value Reference Range Interpretation [...] CONCENTRATION Adequate (CELLAVISION)(BEAKER) (test code = 3438) Nuclear Supervising Operator ID - Niurka Zaina comments: Slide comments:POCT-GLUCOSE METER 2020-07-02 08:29:00 Test Item Value Reference Range Interpretation Comments POC-GLUCOSE METER 162 mg/dL 70-110 H : TESTED A T [facility] 6720 (BEAKER) (test code = [facility], 1538) [address]: Nuclear Supervising Operator/Techni heather ID = [id number] for Jazmin Hu [id number] 05:08:00 Test Item Value Reference Range Interpretation Comments PARTIAL THROMBOPLASTIN TIME 65.4 seconds 22.5-36.0 H (BEAKER) (test code = 760) [id number] 03:17:00 Test Item Value Reference Range Interpretation Comments PARTIAL THROMBOPLASTIN TIME 128.2 seconds 22.5-36.0 H (BEAKER) (test code = 760) BASIC METABOLIC [id number] 03:15:00 Test Item Value Reference Range Interpretation [...] S NOT APPLICABLE FOR DIALYSIS PATIEN TS. Nuclear Supervising Operator ID - SARBJIT MPOCT-GLUCOSE [id number] 00:03:00 Test Item Value Reference Range Interpretation Comments POC-GLUCOSE METER 183 mg/dL 70-110 H : TESTED A T [facility] 6720 (BEAKER) (test code = [facility], 1538) [address]: Nuclear Supervising Operator/Techni heather ID = [id number] for Herb Giles [id number] 18:14:00 Test Item Value Reference Range Interpretation Comments PARTIAL THROMBOPLASTIN TIME 71.0 seconds 22.5-36.0 H (BEAKER) (test code = 760) POCT-GLUCOSE [id number] 17:03:00 Test Item Value Reference Range Interpretation Comments POC-GLUCOSE METER 259 mg/dL 70-110 H : TESTED A T [facility] 6720 (BEAKER) (test code = [facility], 153) [address]: Nuclear Supervising Operator/Techni heather ID = [id number] for MALIHA HANNAH [id number] 15:30:00 Test Item Value Reference Range Interpretation Comments PARTIAL THROMBOPLASTIN TIME > seconds 22.5-36.0 HH (BEAKER) (test code = 760) Blood Culture - Routine (Left Venipuncture)2020-07-01 14:01:00 Test Item Value Reference Range Interpretation Comments Result (test code = No growth in 5 days 6463-4) [facility] (Left Venipuncture)2020-07-01 14:01:00 Test Item Value Reference Range Interpretation Comments Result (test code = No growth in 5 days 6463-4) [facility]isBLO[facility] [id number] 14:01:00 Test Item Value Reference Range Interpretation Comments CULTURE (BEAKER) (test No growth in 5 days code = 1095) BLOOD [id number] 14:01:00 Test Item Value Reference Range Interpretation Comments CULTURE (BEAKER) (test No growth in 5 days code = 1095) BLOOD [id number] 14:01:00 Test Item Value Reference Range Interpretation Comments CULTURE (BEAKER) (test No growth in 5 days code = 1095) POCT-GLUCOSE [id number] 12:17:00 Test Item Value Reference Range Interpretation Comments POC-GLUCOSE METER 225 mg/dL 70-110 H : TESTED A T [facility] 6720 (BEAKER) (test code = [facility], 1538) [address]: Nuclear Supervising Operator/Techni heather ID = [id number] for AN MALIHA CARBALLO Hepatic function [id number] 10:07:00 Test Item Value Reference Range Interpretation Comments Protein, Total (test 7.0 See_Comment [Autom ated code = 2885-2) message] The system which generated this result transmit vy reference range : 6.0 - 8.3 gm/dL . The reference range was not u sed to interpret th is result as normal/abnormal . Albumin (test code = 3.2 g/dL 3.5-5 L 06740-0) Total Bilirubin (test 0.5 mg/dL 0.2-1.2 code = 1975-2) Bilirubin, Direct 0.3 mg/dL 0.1-0.5 (test code = 1968-7) Alkaline Phosphatase 110 U/L 40-150 (test code = 6768-6) AST (test code = 15 U/L 5-34 1920-8) ALT (test code = 10 U/L 6-55 1742-6) CACHORRO (test code = CACHORRO) Nuclear Supervising Operator ID Ventura JARAMILLO F Lab Interpretation Abnormal (test code = 00247-2) [facility]isHEPATIC FUNCTION [id number] 10:07:00 Test Item Value Reference Range Interpretation [...] (test code = 10 U/L 6-55 347) Nuclear Supervising Operator ID - NIURKA FCBC W/PLT COUNT & AUTO [id number] 09:53:00 Test Item Value Reference Range Interpretation [...] Adequate (CELLAVISION)(BEAKER) (test code = 3438) POCT-GLUCOSE [id number] 07:36:00 Test Item Value Reference Range Interpretation Comments POC-GLUCOSE METER 167 mg/dL 70-110 H : Notified RN/MD: (BEAKER) (test code = TESTED AT [facility] 2547 0457) [facility], [address]: Nuclear Supervising Operator/Techni heather ID = [id number] for AN MALIHA CARBALLO BASIC METABOLIC [id number] 06:45:00 Test Item Value Reference Range Interpretation [...] S NOT APPLICABLE FOR DIALYSIS PATIEN TS. Nuclear Supervising Operator ID - NIURKA FVANCOMYCIN LEVEL, [id number] 06:33:00 Test Item Value Reference Range Interpretation Comments VANCOMYCIN RANDOM (BEAKER) (test 18.8 ug/mL code = 523) Reference Range: No NormalsOperator ID - SARBJIT [id number] 06:18:00 Test Item Value Reference Range Interpretation Comments PARTIAL THROMBOPLASTIN TIME 39.9 seconds 22.5-36.0 H (BEAKER) (test code = 760) POCT-GLUCOSE [id number] 00:26:00 Test Item Value Reference Range Interpretation Comments POC-GLUCOSE METER 170 mg/dL 70-110 H : TESTED A T [facility] 6720 (BEAKER) (test code = [facility], 1538) [address]: Nuclear Supervising Operator/Techni heather ID = [id number] for DYLAN OLSON [id number] 23:56:00 Test Item Value Reference Range Interpretation Comments PARTIAL THROMBOPLASTIN TIME 47.5 seconds 22.5-36.0 H (BEAKER) (test code = 760) [id number] 16:30:00 Test Item Value Reference Range Interpretation Comments PARTIAL THROMBOPLASTIN TIME 51.2 seconds 22.5-36.0 H (BEAKER) (test code = 760) [id number] 14:32:00 Test Item Value Reference Range Interpretation Comments PARTIAL THROMBOPLASTIN TIME 187.8 seconds 22.5-36.0 HH (BEAKER) (test code = 760) [id number] 13:55:00 Test Item Value Reference Range Interpretation Comments PARTIAL THROMBOPLASTIN TIME > seconds 22.5-36.0 HH (BEAKER) (test code = 760) POCT-GLUCOSE [id number] 12:13:00 Test Item Value Reference Range Interpretation Comments POC-GLUCOSE METER 207 mg/dL 70-110 H : TESTED A T [facility] 6720 (BEAKER) (test code = [facility], 1538) [address]: Nuclear Supervising Operator/Techni heather ID = [id number] for LADARIUS HOWELL CBC W/PLT COUNT & AUTO [id number] 09:36:00 Test Item Value Reference Range Interpretation [...] CONCENTRATION Decreased (CELLAVISION)(BEAKER) (test code = 3438) Nuclear Supervising Operator ID - Magi Esposito comments: Slide comments:POCT-GLUCOSE METER 2020-06-30 08:19:00 Test Item Value Reference Range Interpretation Comments POC-GLUCOSE METER 162 mg/dL 70-110 H : TESTED A T [facility] 6720 (BEAKER) (test code = [place], 1538) [address]: Nuclear Supervising Operator/Techni heather ID = [id number] for EMANI DELGADO [id number] 07:46:00 Test Item Value Reference Range Interpretation Comments PARTIAL THROMBOPLASTIN TIME 76.8 seconds 22.5-36.0 H (BEAKER) (test code = 760) BASIC METABOLIC [id number] 07:03:00 Test Item Value Reference Range Interpretation [...] S NOT APPLICABLE FOR DIALYSIS PATIEN TS. Nuclear Supervising Operator ID - SARBJIT MVANCOMYCIN LEVEL, [id number] 06:09:00 Test Item Value Reference Range Interpretation Comments VANCOMYCIN RANDOM (BEAKER) (test 25.1 ug/mL code = 523) Reference Range: No NormalsOperator ID - SARBJIT [id number] 00:42:00 Test Item Value Reference Range Interpretation Comments PARTIAL THROMBOPLASTIN TIME 68.8 seconds 22.5-36.0 H (BEAKER) (test code = 760) [id number] 22:14:00 Test Item Value Reference Range Interpretation Comments PARTIAL THROMBOPLASTIN TIME 124.8 seconds 22.5-36.0 H (BEAKER) (test code = 760) POCT-GLUCOSE [id number] 21:06:00 Test Item Value Reference Range Interpretation Comments POC-GLUCOSE METER 183 mg/dL 70-110 H : TESTED A T [facility] 6720 (BEAKER) (test code = [place], 1538) [address]: Nuclear Supervising Operator/Techni heather ID = [id number] for Penelope Smith POCT-GLUCOSE [id number] 17:21:00 Test Item Value Reference Range Interpretation Comments POC-GLUCOSE METER 190 mg/dL 70-110 H : TESTED A T [facility] 6720 (BEAKER) (test code = [place], 1538) [address]: Nuclear Supervising Operator/Techni heather ID = [id number] for EMANI DELGADO [id number] 14:11:00 Test Item Value Reference Range Interpretation [...] 0-0 (BEAKER) (test code = 413) POCT-GLUCOSE [id number] 12:21:00 Test Item Value Reference Range Interpretation Comments POC-GLUCOSE METER 185 mg/dL 70-110 H : TESTED A T [facility] 6720 (BEAKER) (test code = [place], 1538) [address]: Nuclear Supervising Operator/Techni heather ID = [id number] for EMANI DELGADO CBC W/PLT COUNT & AUTO [id number] 10:14:00 Test Item Value Reference Range Interpretation [...] CONCENTRATION Adequate (CELLAVISION)(BEAKER) (test code = 3438) Nuclear Supervising Operator ID - Raven Ledesma comments: Slide comments:POCT-GLUCOSE METER 2020-06-29 08:10:00 Test Item Value Reference Range Interpretation Comments POC-GLUCOSE METER 148 mg/dL 70-110 H : TESTED A T [facility] 6720 (BEAKER) (test code = [place], 1538) [address]: Nuclear Supervising Operator/Techni heather ID = [id number] for CA STROTRIEMANI [id number] 07:22:00 Test Item Value Reference Range Interpretation Comments Magnesium (test code = 1.6 mg/dL 1.6-2.6 93075-7) CACHORRO (test code = CACOHRRO) Nuclear Supervising Operator ID - SARBJIT Molina Lab Interpretation (test Normal code = 49369-0) [id number] 07:22:00 Test Item Value Reference Range Interpretation Comments Magnesium (test code = 1.6 mg/dL 1.6-2.6 49582-8) CACHORRO (test code = CACHORRO) Nuclear Supervising Operator ID - SARBJIT M Lab Interpretation (test Normal code = 56104-4) [facility] [id number] 07:22:00 Test Item Value Reference Range Interpretation [...] S NOT APPLICABLE FOR DIALYSIS PATIEN TS. Nuclear Supervising Operator ID - SARBJIT [id number] 07:22:00 Test Item Value Reference Range Interpretation Comments MAGNESIUM (BEAKER) (test code = 1.6 mg/dL 1.6-2.6 627) Nuclear Supervising Operator ID - SARBJIT [id number] 07:08:00 Test Item Value Reference Range Interpretation Comments PARTIAL THROMBOPLASTIN TIME 71.2 seconds 22.5-36.0 H (BEAKER) (test code = 760) [id number] 00:38:00 Test Item Value Reference Range Interpretation Comments PARTIAL THROMBOPLASTIN TIME 36.4 seconds 22.5-36.0 H (BEAKER) (test code = 760) [id number] 22:00:00 Test Item Value Reference Range Interpretation Comments PARTIAL THROMBOPLASTIN TIME 122.0 seconds 22.5-36.0 H (BEAKER) (test code = 760) POCT-GLUCOSE [id number] 21:36:00 Test Item Value Reference Range Interpretation Comments POC-GLUCOSE METER 153 mg/dL 70-110 H : TESTED A T [facility] 6720 (BEAKER) (test code = [facility] [place] [facility], 1538) [address]: Nuclear Supervising Operator/Techni heather ID = [id number] for PIPPA GUERIN Vancomycin level, [id number] 21:03:00 Test Item Value Reference Range Interpretation Comments Vancomycin Tr (test code = 26.1 ug/mL 10-20 H 4092-3) CACHORRO (test code = CACHORRO) Nuclear Supervising Operator ID - DB Lab Interpretation (test Abnormal code = 48524-1) [facility], [id number] 21:03:00 Test Item Value Reference Range Interpretation Comments Vancomycin Tr (test code = 26.1 ug/mL 10.0-20.0 H 4092-3) CACHORRO (test code = CACHORRO) Nuclear Supervising Operator ID - DB Lab Interpretation (test Abnormal code = 68591-9) [facility]isVANCOMYCIN LEVEL, [id number] 21:03:00 Test Item Value Reference Range Interpretation Comments VANCOMYCIN TROUGH (ERIK) (test 26.1 ug/mL 10.0-20.0 H code = 522) Nuclear Supervising Operator ID - DBPOCT-GLUCOSE [id number] 17:48:00 Test Item Value Reference Range Interpretation Comments POC-GLUCOSE METER 129 mg/dL 70-110 H : Notified RN/: (ERIK) (test code = TESTED AT [place] [address] 1538) [facility], [address]: Nuclear Supervising Operator/Techni heather ID = [id number] for MALIHA HANNAH [id number] 14:09:00 Test Item Value Reference Range Interpretation Comments PARTIAL THROMBOPLASTIN TIME 41.5 seconds 22.5-36.0 H (ERIK) (test code = 760) POCT-GLUCOSE [id number] 11:54:00 Test Item Value Reference Range Interpretation Comments POC-GLUCOSE METER 130 mg/dL 70-110 H : Notified RN/MD: (ERIK) (test code = TESTED AT [place] [address] 1538) [facility], [address]: Nuclear Supervising Operator/Techni heather ID = [id number] for MALIHA HANNAH POCT-GLUCOSE [id number] 07:53:00 Test Item Value Reference Range Interpretation Comments POC-GLUCOSE METER 152 mg/dL 70-110 H : Notified RN/MD: (ERIK) (test code = TESTED AT [facility] 5523 9557) [facility], [address]: Nuclear Supervising Operator/Techni heather ID = [id number] for AN MALIHA CARBALLO CBC W/PLT COUNT & AUTO [id number] 07:41:00 Test Item Value Reference Range Interpretation [...] CONCENTRATION Adequate (CELLAVISION)(BEAKER) (test code = 3438) Nuclear Supervising Operator ID - Magi Esposito comments: Slide comments:BASIC [...] S NOT APPLICABLE FOR DIALYSIS PATIEN TS. Nuclear Supervising Operator ID - [id number] 05:08:00 Test Item Value Reference Range Interpretation Comments PARTIAL THROMBOPLASTIN TIME 38.2 seconds 22.5-36.0 H ([facility]) (test code = 760) POCT-GLUCOSE [id number] 23:23:00 Test Item Value Reference Range Interpretation Comments POC-GLUCOSE METER 191 mg/dL 70-110 H : TESTED A T [facility] 6720 ([facility]) (test code = [facility] Mandi [facility], 1538) [address]: Nuclear Supervising Operator/Techni heather ID = [id number] for JONATAN BENITEZ RA [id number] 21:47:00 Test Item Value Reference Range Interpretation Comments PARTIAL THROMBOPLASTIN TIME 44.5 seconds 22.5-36.0 H ([facility]) (test code = 760) [id number] 18:57:00 Test Item Value Reference Range Interpretation Comments PARTIAL THROMBOPLASTIN TIME 129.6 seconds 22.5-36.0 H ([facility]) (test code = 760) POCT-GLUCOSE [id number] 18:19:00 Test Item Value Reference Range Interpretation Comments POC-GLUCOSE METER 173 mg/dL 70-110 H : Notified RN/MD: ([facility]) (test code = TESTED AT [place] [address] 1538) [facility], [address]: Nuclear Supervising Operator/Techni heather ID = [id number] for MALIHA HANNAH Arterial doppler legs [id number] 13:46:31[facility] ECHO HEARTLAB MKCKESSON CPACSRight Impression1. The [...] mid and distal posterior tibial artery. No flowwas visualized in the peroneal artery. The anterior tibial artery was patent with biphasic Doppler waveforms. Bilaterally, calcified arteries and collateral flow were visualized throughout. Signature -- Velocities are measured in cm/s ; Diameters are measured in cm LE Duplex Measurements Right Left + + + + + + + + + + !Location ! !PSV !EDV !Waveform ! !PSV !EDV !Waveform ! + + + + + + +-------- + + + !Mid Common Femoral ! !99.8 ! ! ! !64.8 ! ! ! + + + + + + + + + + !ProxPFA ! !62.9 ! ! ! !43.4 ! ! ! + + +---- + + + + + + + !Prox SFA ! !128 ! ! ! !99.1 ! ! ! + + + + + + + --------+ + + !Mid SFA ! !138 ! ! ! !103 ! ! ! + + + + + + + + + + !Dist SFA ! !62.1 !! ! !108 ! ! ! + + + + + + + + + + !Prox Popliteal ! !156 ! ! ! !43.2 ! ! ! + + + + + + + + + + !Dist Popliteal ! !130 ! ! ! !58.9 ! ! ! + + + + + + + + + + !Prox GIS APPLICATION DEVELOPER ! !42.2 ! ! ! !11.8 ! ! ! + + + + + + + + + + !Mid GIS APPLICATION DEVELOPER ! !77.8 ! ! ! + + + + + + !Dist GIS APPLICATION DEVELOPER ! !44.8 ! ! ! + + + + + + !Prox KYLEIGH ! !41 ! ! ! + + + + + + !Mid KYLEIGH ! !16 ! ! ! + + + + + + !Dist Peroneal ! !20.2 ! ! ! + + + + + + Interface, External Ris In - 06/27/2020 1:46 PM CDTPV LAB - Lower Extremity Arterial Duplex Demographics Patient Name LEVI COLEY Date of Study 06/26/2020 Age 75 Visit Number [id number] Gender Male Accession Number [id number] Date of 1945 Referring Suri Spencer Room Number 2419 Physician MD Juanita Chahal onographer Rajinder Moreno Interpreting Madelyn Redmond Physician ProcedureType of Study: Extremities Arteries: Lower Extremities Arterial Duplex, ARTERIAL DOPPLER LEGS, BILATERAL. Indications forStudy:Leg pain and Leg swelling.Patient Status:STAT.Study Location:Portable.Technical Quality:Technic ally Difficult.Risk FactorsHistory of Disease+ +----+ +!Diagnosis !Date!Comments !+ +----+ +!History/Risk ! !Obesity, DM, Pacemaker, CHF, Afib, HTN, Foot !!Factors: ! !Infection, Long time anticoagulation !+ +----+ +ImpressionsRight Impression1. The common femoral, profunda femoral, [...] mid or distally.7. Calcified arteries and collateral floware visualized throughout.Left Impression1. The common femoral, profunda femoral, superficial femoral and poplitealarteries are patent with triphasic/biphasic Doppler waveforms.2. Flow is visualized inthe mid and distal posterior tibial artery withbiphasic [...] visualized in the mid and distal posterior tibialartery. No flow was visualized in the peroneal artery. The anterior tibial artery had stenosed flow proximally and no flow visualized mid or distally. On the left, the common femoral, profunda femoral,superficial femoral and popliteal arteries were patent with triphasic/biphasic Doppler waveforms. Flow was visualized in the mid and distal posterior tibial artery. No flow was visualized in the peroneal artery. The anterior tibial artery was patent with biphasic Doppler waveforms. Bilaterally, calcified arteries and collateral flow were visualized throughout. Signature Velocitiesare measured in cm/s ; Diameters are measured in cmLE Duplex Measurements Right Left + + + + + + + + + + !Location ! !PSV !EDV!Waveform ! !PSV !EDV !Waveform ! + + +- + + + + + + + !Mid Common Femoral ! !99.8 ! ! ! !64.8 ! ! ! + + + + + + + + + + !Prox PFA ! !62.9 ! ! ! !43.4 ! ! ! + + + + + + + + + + !Prox SFA ! !128 ! ! ! !99.1 ! ! ! + + +---- + + + + + + + !Mid SFA ! !138 ! ! ! !103 ! ! ! + + + + + + + ------+ + + !Dist SFA ! !62.1 ! ! ! !108 ! ! ! + + + + + + + + + + !Prox Popliteal ! !156 ! ! ! !43.2 ! ! ! + + + -----+ + + + + + + !Dist Popliteal ! !130 ! ! ! !58.9 ! ! ! + + + + + + + + + + !Prox GIS APPLICATION DEVELOPER ! !42.2 ! ! ! !11.8 ! ! ! + + + + + + + + + + !Mid GIS APPLICATION DEVELOPER ! !77.8 ! !! + + + + + + !Dist GIS APPLICATION DEVELOPER ! !44.8 ! ! ! + + + + + + !Prox KYLEIGH ! !41 ! ! ! + + + + + + !Mid KYLEIGH ! !16 ! ! ! + + + + + + !Dist Peroneal! !20.2 ! ! ! + + + + + +[facility] [id number] 12:23:00 Test Item Value Reference Range Interpretation Comments POC-GLUCOSE METER 158 mg/dL 70-110 H : TESTED Javi Arizmendi [facility] 6720 (BEAKER) (test code = [place], 1538) [address]: Nuclear Supervising Operator/Techni heather ID = [id number] for MALIHA HANNAH [id number] 12:15:00 Test Item Value Reference Range Interpretation Comments PARTIAL THROMBOPLASTIN TIME 49.5 seconds 22.5-36.0 H (BEAKER) (test code = 760) CBC W/PLT COUNT & AUTO [id number] 09:10:00 Test Item Value Reference Range Interpretation [...] CONCENTRATION Adequate (CELLAVISION)(BEAKER) (test code = 3438) Nuclear Supervising Operator ID - Raven Ledesma comments: Slide comments:POCT-GLUCOSE METER 2020-06-27 08:03:00 Test Item Value Reference Range Interpretation Comments POC-GLUCOSE METER 150 mg/dL 70-110 H : TESTED Javi T [facility] 6720 (BEAKER) (test code = [place], 1538) [address]: Nuclear Supervising Operator/Techni heather ID = [id number] for AN MALIHA CARBALLO BASIC METABOLIC [id number] 06:39:00 Test Item Value Reference Range Interpretation [...] S NOT APPLICABLE FOR DIALYSIS PATIEN TS. Nuclear Supervising Operator ID - PIAYA [id number] 06:02:00 Test Item Value Reference Range Interpretation Comments PARTIAL THROMBOPLASTIN TIME 77.3 seconds 22.5-36.0 H (BEAKER) (test code = 760) [id number] 23:03:00 Test Item Value Reference Range Interpretation Comments PARTIAL THROMBOPLASTIN TIME 54.9 seconds 22.5-36.0 H (BEAKER) (test code = 760) POCT-GLUCOSE [id number] 17:54:00 Test Item Value Reference Range Interpretation Comments POC-GLUCOSE METER 139 mg/dL 70-110 H : TESTED Javi T [facility] 6720 (BEAKER) (test code = [place], 1538) [address]: Nuclear Supervising Operator/Techni heather ID = [id number] for MALIHA HANNAH [id number] 15:39:00 Test Item Value Reference Range Interpretation [...] 0-0 (BEAKER) (test code = 413) POCT-GLUCOSE [id number] 12:48:00 Test Item Value Reference Range Interpretation Comments POC-GLUCOSE METER 100 mg/dL 70-110 : TESTED A T [facility] 6720 (BEAKER) (test code = [place], 1538) [address]: Nuclear Supervising Operator/Techni heather ID = [id number] for AN MALIHA CARBALLO Venous doppler leg, [id number] 08:15:01Ejection [facility]SSYRINGA [facility] ECHO HEARTLAB MKCKESSON CPACSRight Impression1. There [...] DVT Study Demographics Patient Name LEVI COLEY Date of Study 06/25/2020 Age 75 Visit Number [id number] Gender Male Accession Number [id number] Date of 1945 Referring Suri Spencer Room Number ED21 Physician MD Fela Molder Meat Rajinder Moreno Interpreting Madelyn Redmond Physician ProcedureType of Study: Veins: Lower Extremities DVT Study, VENOUS DOPPLER LEG, RIGHT. Indications for Study:Leg pain and Leg swelling.Patient Status:STAT.Study Loca tion:Portable.Technical Quality:Technically Difficult. - Results were reported to: Dr. Chahal @ 23:15 (chronic).Risk FactorsHistory of Disease+ +----+ +!Diagnosis !Date!Comments !+ +----+ +!History/Risk ! !Obesity, DM, Pacemaker, CHF, Afib, HTN, Foot !!Factors: ! !Infection, Long time anticoagulation !+ +----+ -----+ImpressionsRight Impression1. There is partial echogenic deep venous [...] in cm/s ; Diameters are [facility] in [facility], [id number] 08:15:01Ejection FractionSLEH ECHO HEARTLAB MKCKESSON [facility] CenterH[facility] [id number] 08:11:00 Test Item Value Reference Range Interpretation Comments Hemoglobin A1C (test code = 4548-4) 7.2 % 4.3-6.1 H Lab Interpretation (test code = Abnormal 31511-2) [facility] [id number] 08:11:00 Test Item Value Reference Range Interpretation Comments Hemoglobin A1C (test code = 4548-4) 7.2 % 4.3-6.1 H Lab Interpretation (test code = Abnormal 89842-1) [facility] [id number] 08:11:00 Test Item Value Reference Range Interpretation Comments HEMOGLOBIN A1C (BEAKER) (test code = 7.2 % 4.3-6.1 H 368) CBC W/PLT COUNT & AUTO [id number] 07:57:00 Test Item Value Reference Range Interpretation [...] CONCENTRATION Adequate (CELLAVISION)(BEAKER) (test code = 3438) Nuclear Supervising Operator ID - Raven Ledesma comments: Slide comments:SARS-COV2/RT-PCR ([facility])2020-06-26 05:27:00 Test Item Value Reference Range Interpretation Comments SARS-COV2/RT-PCR (test Negative Not Detected, Negative, code = 5747700) See external report for linked test SARS-COV-2 PERFORMING LAB [facility] [place] (test code = 9247112) Negative result for this test determines that [...] justifying the authorization of the emergency use ofin vitro diagnostic tests for detection and/or diagnosis of COVID-19 is terminated under Section 564(b)(2) of the Act or the EUA is revoked under Section 564(g) of the Act.Testing was performed using the Pacheco SARS-CoV-2 assay.Fact Sheet for Healthcare Providers:https://www.molecular.pacheco/libby/RT_SAR B-EmO-6_JZF_Dtct_Jggia_03-003130.pdfFact Sheet for Healthcare Patients:https://www.molecular.pacheco/s al/TP_HRLL-XrD-5_Iiirvrx_Chro_Bwgxj_PG_09-783455T8.pdfPerforming Laboratory:[facility] [place] [address] Vitamin B12 and [id number] 05:14:00 Test Item Value Reference Range Interpretation Comments Vitamin B12 (test 832 pg/mL 213-816 H code = 2132-9) Folate (test code = 17.50 ng/mL See_Comment [Automa vy 2284-8) message] The system which generated this result transmit vy reference range : >=7.00. The reference range was not used to interpret this result as normal/abnormal . CACHORRO (test code = CACHORRO) Nuclear Supervising Operator ID - SARBJIT Molina Lab Interpretation Abnormal (test code = 46311-3) [facility] B12 AND [id number] 05:14:00 Test Item Value Reference Range Interpretation Comments VITAMIN B12 832 pg/mL 213-816 H (BEAKER) (test code = 774) FOLATE (BEAKER) 17.50 ng/mL See_Comment [Automated message] (test code = 362) The system which generated this result transmitted ref erence range: >=7.00. The reference range was not used to interpr et this result as normal/abnormal . Nuclear Supervising Operator ID - SARBJIT MC-Reactive [id number] 04:29:00 Test Item Value Reference Range Interpretation Comments CRP (test code = 676) 5.28 mg/dL 0-0.5 H CACHORRO (test code = CACHORRO) Nuclear Supervising Operator ID - SARBJIT Molina Lab Interpretation (test Abnormal code = 62310-6) [facility]-REACTIVE [id number] 04:29:00 Test Item Value Reference Range Interpretation Comments C-REACTIVE PROTEIN (BEAKER) (test 5.28 mg/dL 0.00-0.50 H code = 676) Nuclear Supervising Operator ID - SARBJIT MBASIC METABOLIC [id number] 04:29:00 Test Item Value Reference Range Interpretation [...] mg/dL 8.4-10.2 (test code = 697) EGFR (ERIK) (test 51 mL/min/1.73 ESTIMA VY GFR IS code = 1092) sq m NOT ACCURATE CREATININE CLEARANCE IN PREDICTING GLOMERULAR FILTRATION RATE . ESTIMATED GFR I S NOT APPLICABLE FOR DIALYSIS PATIEN TS. Nuclear Supervising Operator ID - SARBJIT MRAD, FOOT, MIN 3 VIEWS, [id number] 23:41:00Reason for exam:->LEG PAINReason for exam:->LEG SWELLING [facility] KRYSTA : 1945 Sex: MFINAL [...] soft tissue gas or radiographic evidence of os teomyelitis. Signed: Jatinder Hemphilleport Verified Date/Time: 06/25/2020 23:41:40 (CELLAVISION MANUAL [...] 313) HYPERSEGMENTATION Present (CELLAVISION)(BEAKER) (test code = 6495) POLYCHROMATOPHILLIC RBCS(BEAKER) 1+ few (test code = 478) ARTIFACT (CELLAVISION)(BEAKER) Present (test code = 3432) PLATELET CONCENTRATION Adequate (CELLAVISION)(BEAKER) (test code = 3438) Nuclear Supervising Operator ID - Anastasia comments: Slide comments:Lactic acid, venous 2020-06-25 19:36:00 Test Item Value Reference Range Interpretation Comments Lactate, Venous (test code = 0.52 mmol/L 0.5-2.2 2872) CACHORRO (test code = CACHORRO) Nuclear Supervising Operator ID - BS Lab Interpretation (test Normal code = 07256-9) [facility]isLactic acid, [id number] 19:36:00 Test Item Value Reference Range Interpretation Comments Lactate, Venous (test code = 0.52 mmol/L 0.50-2.20 2872) CACHORRO (test code = CACHORRO) Nuclear Supervising Operator ID - BS Lab Interpretation (test Normal code = 59406-8) [facility]isBASIC METABOLIC [id number] 19:36:00 Test Item Value Reference Range Interpretation [...] S NOT APPLICABLE FOR DIALYSIS PATIEN TS. Nuclear Supervising Operator ID - BSC-REACTIVE [id number] 19:36:00 Test Item Value Reference Range Interpretation Comments C-REACTIVE PROTEIN (BEAKER) (test 4.79 mg/dL 0.00-0.50 H code = 676) Nuclear Supervising Operator ID - BSLACTIC ACID, [id number] 19:36:00 Test Item Value Reference Range Interpretation Comments LACTATE BLOOD VENOUS (2) (BEAKER) 0.52 mmol/L 0.50-2.20 (test code = 2872) Nuclear Supervising Operator ID - BSPT/[id number] 19:32:00 Test Item Value Reference Interpretation Comments [...] (test code = 39.7 See_Comment H [Automated 63446-0) message] The system which generated this result [...] valves. Lab Interpretation Abnormal (test code = 95437-6) [facility]isPT/[id number] 19:32:00 Test Item Value Reference Interpretation Comments [...] (test code = 39.7 See_Comment H [Automated 25421-1) message] The system which generated this result [...] valves. Lab Interpretation Abnormal (test code = 82980-1) [facility]isPT/[id number] 19:32:00 Test Item Value Reference Range Interpretation [...] is 2.5-3.5 for patients wiht mechanical heart valves.CBC W/PLT COUNT & AUTO [id number] 19:25:00 Test Item Value Reference Range Interpretation [...] 0-0 (AKER) (test code = 413) POCT-GLUCOSE [id number] 13:28:00 Test Item Value Reference Range Interpretation Comments POC-GLUCOSE METER 270 mg/dL 70-110 H TESTED AT [place] [address] ([facility]) (test code = [place] 1538) [address] POCT-GLUCOSE [id number] 08:58:00 Test Item Value Reference Range Interpretation Comments POC-GLUCOSE METER 147 mg/dL 70-110 H TESTED AT [place] [address] ([facility]) (test code = [place] 1538) [address] CBC W/PLT COUNT & AUTO [id number] 08:53:00 Test Item Value Reference Range Interpretation [...] 0-1 PERCENT (BEAKER) (test code = 2801) [id number] 08:05:00 Test Item Value Reference Range Interpretation Comments MAGNESIUM (BEAKER) (test code = 1.5 mg/dL 1.6-2.6 L 627) BASIC METABOLIC [id number] 08:05:00 Test Item Value Reference Range Interpretation [...] NOT APPLICABLE FOR DIALYSIS PATIEN TS. POCT-GLUCOSE [id number] 21:57:00 Test Item Value Reference Range Interpretation Comments POC-GLUCOSE METER 219 mg/dL 70-110 H TESTED AT [place] [address] ([facility]) (test code = YOSELINBEVERLY Mandi [facility] 1538) [address] POCT-GLUCOSE [id number] 17:24:00 Test Item Value Reference Range Interpretation Comments POC-GLUCOSE METER 247 mg/dL 70-110 H TESTED AT [place] [address] ([facility]) (test code = SHRAVAN [place] [facility] 1538) [address] CBC W/PLT COUNT & AUTO [id number] 13:56:00 Test Item Value Reference Range Interpretation [...] (BEAKER) (test code Normal = 762) POCT-GLUCOSE [id number] 13:22:00 Test Item Value Reference Range Interpretation Comments POC-GLUCOSE METER 226 mg/dL 70-110 H TESTED AT [facility] 6720 (BEAKER) (test code = [place] 1538) [address] POCT-GLUCOSE [id number] 07:59:00 Test Item Value Reference Range Interpretation Comments POC-GLUCOSE METER 216 mg/dL 70-110 H TESTED AT [place] [address] (BEAKER) (test code = [place] 1538) [address] [id number] 05:18:00 Test Item Value Reference Range Interpretation Comments MAGNESIUM (BEAKER) (test code = 1.7 mg/dL 1.6-2.6 627) BASIC METABOLIC [id number] 05:18:00 Test Item Value Reference Range Interpretation [...] NOT APPLICABLE FOR DIALYSIS PATIEN TS. POCT-GLUCOSE [id number] 20:58:00 Test Item Value Reference Range Interpretation Comments POC-GLUCOSE METER 260 mg/dL 70-110 H TESTED AT [place] [id number] (BEAKER) (test code = [place] 1538) [address] POCT-GLUCOSE [id number] 17:32:00 Test Item Value Reference Range Interpretation Comments POC-GLUCOSE METER 237 mg/dL 70-110 H TESTED AT [facility] 6720 (BEAKER) (test code = [place] 1538) [address] POCT-GLUCOSE [id number] 16:21:00 Test Item Value Reference Range Interpretation Comments POC-GLUCOSE METER 223 mg/dL 70-110 H TESTED AT [facility] 6720 (BEAKER) (test code = [place] 1538) [address] CBC W/PLT COUNT & AUTO [id number] 14:22:00 Test Item Value Reference Range Interpretation [...] (BEAKER) (test code = Normal 762) POCT-GLUCOSE [id number] 11:52:00 Test Item Value Reference Range Interpretation Comments POC-GLUCOSE METER 143 mg/dL 70-110 H TESTED AT [facility] 6720 (BEAKER) (test code = [place] 1538) [address] POCT-GLUCOSE [id number] 08:04:00 Test Item Value Reference Range Interpretation Comments POC-GLUCOSE METER 86 mg/dL 70-110 TESTED AT [facility] 6720 (BEAKER) (test code = SHRAV[place] [facility] [address] 1538) [id number] 06:07:00 Test Item Value Reference Range Interpretation Comments MAGNESIUM (BEAKER) 1.6 mg/dL 1.6-2.6 Specimen slightly (test code = 627) hemolyzed BASIC METABOLIC [id number] 06:07:00 Test Item Value Reference Range Interpretation Comments SODIUM (BEAKER) 135 meq/L 136-145 L (test code = 381) POTASSIUM (BEAKER) 3.7 meq/L 3.5-5.1 Specimen slightly (test code = 379) hemolyzed CHLORIDE (BEAKER) 104 meq/L 98-107 (test code = 382) CO2 (BEAKER) (test 22 meq/L 22-29 code = 355) BLOOD UREA NITROGEN 27 mg/dL 7-21 H ([facility]) (test code = 354) CREATININE ([facility]) 1.32 mg/dL 0.57-1.25 H Specimen slightly (test code = 358) hemolyzed GLUCOSE RANDOM 103 mg/dL 70-105 ([facility]) (test code = 652) CALCIUM ([facility]) 8.4 mg/dL 8.4-10.2 (test code = 697) EGFR ([facility]) (test 53 mL/min/1.73 ESTIMA VY GFR IS code = 1092) sq m NOT ACCURATE CREATININE CLEARANCE IN PREDICTING GLOMERULAR FILTRATION RATE . ESTIMATED GFR I S NOT APPLICABLE FOR DIALYSIS PATIEN TS. POCT-GLUCOSE [id number] 20:42:00 Test Item Value Reference Range Interpretation Comments POC-GLUCOSE METER 338 mg/dL 70-110 H TESTED AT [place] [address] ([facility]) (test code = SHRA[place] [facility] 1538) [address] POCT-GLUCOSE [id number] 17:41:00 Test Item Value Reference Range Interpretation Comments POC-GLUCOSE METER 303 mg/dL 70-110 H TESTED AT [place] [address] ([facility]) (test code = SHRAV[place] [facility] 1538) [address] RAD, CHEST, 1 VIEW, NON [id number] 14:44:00Reason for exam:->shortness of breath s/p RHCShould this be performed at the bedside?->YesFINAL REPORT CLINICAL HISTORY: shortness of breath s/p RHC TECHNIQUE: 1 view ofthe chest. COMPARISON: 01/31/2017 IMPRESSION: Trace bilateral pleural effusions are again seen with left basilar atelectasis. The cardiomediastinal silhouette is magnified by technique with a pacemaker. Signed: Barbara Espinoza MDReport Verified Date/Time: 02/05/2017 14:44:20 Reading Location: [facility] C013W Consult Reading Room CBC W/PLT COUNT & AUTO [id number] 14:37:00 Test Item Value Reference Range Interpretation Comments WHITE BLOOD CELL COUNT ([facility]) 7.1 K/ L 3.5-10.5 (test code = [...] (BEAKER) (test code = Normal 762) POCT-GLUCOSE [id number] 12:08:00 Test Item Value Reference Range Interpretation Comments POC-GLUCOSE METER 197 mg/dL 70-110 H TESTED AT [facility] 6720 (BEAKER) (test code = SH[place] 1538) [address] POCT-GLUCOSE [id number] 07:55:00 Test Item Value Reference Range Interpretation Comments POC-GLUCOSE METER 149 mg/dL 70-110 H TESTED AT [facility] 6720 (BEAKER) (test code = SHRAVAN Raymond [facility] 1538) [address] [id number] 05:21:00 Test Item Value Reference Range Interpretation Comments MAGNESIUM (BEAKER) (test code = 1.4 mg/dL 1.6-2.6 L 627) BASIC METABOLIC [id number] 05:21:00 Test Item Value Reference Range Interpretation [...] NOT APPLICABLE FOR DIALYSIS PATIEN TS. POCT-GLUCOSE [id number] 21:03:00 Test Item Value Reference Range Interpretation Comments POC-GLUCOSE METER 296 mg/dL 70-110 H TESTED AT [facility] 6720 (BEAKER) (test code = [place] 1538) [address] POCT-GLUCOSE [id number] 17:18:00 Test Item Value Reference Range Interpretation Comments POC-GLUCOSE METER 275 mg/dL 70-110 H TESTED AT [facility] 6720 (BEAKER) (test code = [place] 1538) [address] CBC W/PLT COUNT & AUTO [id number] 15:04:00 Test Item Value Reference Range Interpretation [...] COUNTED (BEAKER) (test code = 1351) POCT-GLUCOSE [id number] 12:17:00 Test Item Value Reference Range Interpretation Comments POC-GLUCOSE METER 208 mg/dL 70-110 H TESTED AT [facility] 6720 (BEAKER) (test code = [place] 1538) [address] POCT-GLUCOSE [id number] 08:57:00 Test Item Value Reference Range Interpretation Comments POC-GLUCOSE METER 230 mg/dL 70-110 H TESTED AT [facility] 6720 (BEAKER) (test code = [place] 1538) [address] [id number] 05:56:00 Test Item Value Reference Range Interpretation Comments MAGNESIUM (BEAKER) (test code = 1.6 mg/dL 1.6-2.6 627) BASIC METABOLIC [id number] 05:56:00 Test Item Value Reference Range Interpretation [...] NOT APPLICABLE FOR DIALYSIS PATIEN TS. POCT-GLUCOSE [id number] 21:20:00 Test Item Value Reference Range Interpretation Comments POC-GLUCOSE METER 329 mg/dL 70-110 H Notified R Luis WATTS/TESTED (BEAKER) (test code = AT [facility] [address] [facility] 1538) [facility] [address] POCT-GLUCOSE [id number] 18:14:00 Test Item Value Reference Range Interpretation Comments POC-GLUCOSE METER 299 mg/dL 70-110 H TESTED AT [facility] 6720 (BEAKER) (test code = SHRAV[place] [facility] 1538) [address] CBC W/PLT COUNT & AUTO [id number] 15:17:00 Test Item Value Reference Range Interpretation [...] (BEAKER) (test code = Normal 762) POCT-GLUCOSE [id number] 12:54:00 Test Item Value Reference Range Interpretation Comments POC-GLUCOSE METER 173 mg/dL 70-110 H TESTED AT [facility] 6720 (BEAKER) (test code = SHRAVAN [facility] 1538) [address] URINALYSIS W/ REFLEX URINE [id number] 12:06:00 Test Item Value Reference Range Interpretation [...] code = 1584) SOURCE(BEAKER) (test code = 7975) CREATININE, RANDOM [id number] 10:52:00 Test Item Value Reference Range Interpretation Comments CREATININE URINE (BEAKER) (test 127.3 mg/dL code = 375) Reference Range: No NormalsPROTEIN, RANDOM [id number] 10:52:00 Test Item Value Reference Range Interpretation Comments PROTEIN, URINE (BEAKER) (test code = 19 mg/dL 0-14 H 1569) POCT-GLUCOSE [id number] 07:55:00 Test Item Value Reference Range Interpretation Comments POC-GLUCOSE METER 88 mg/dL 70-110 TESTED AT [facility] 67 (BEAKER) (test code = SHRAVAN [facility] [address] 1538) [id number] 05:22:00 Test Item Value Reference Range Interpretation Comments MAGNESIUM (BEAKER) (test code = 1.8 mg/dL 1.6-2.6 627) BASIC METABOLIC [id number] 05:22:00 Test Item Value Reference Range Interpretation Comments SODIUM (BEAKER) 138 meq/L 136-145 (test code = 381) POTASSIUM (BEAKER) 4.0 meq/L 3.5-5.1 (test code = 379) CHLORIDE (BEAKER) 110 meq/L 98-107 H (test code = 382) CO2 (BEAKER) (test 21 meq/L 22-29 L code = 355) BLOOD UREA NITROGEN 31 mg/dL 7-21 H ([facility]) (test code = 354) CREATININE ([facility]) 1.27 mg/dL 0.57-1.25 H (test code = 358) GLUCOSE RANDOM 130 mg/dL 70-105 H ([facility]) (test code = 652) CALCIUM ([facility]) 8.4 mg/dL 8.4-10.2 (test code = 697) EGFR ([facility]) (test 56 mL/min/1.73 ESTIMA VY GFR IS code = 1092) sq m NOT ACCURATE CREATININE CLEARANCE IN PREDICTING GLOMERULAR FILTRATION RATE . ESTIMATED GFR I S NOT APPLICABLE FOR DIALYSIS PATIEN TS. B-TYPE NATRIURETIC FACTOR (BNP)2017-02-03 05:17:00 Test Item Value Reference Range Interpretation Comments B-TYPE NATRIURETIC PEPTIDE ([facility]) 315 pg/mL 0-100 H (test code = 700) POCT-GLUCOSE [id number] 21:36:00 Test Item Value Reference Range Interpretation Comments POC-GLUCOSE METER 230 mg/dL 70-110 H TESTED AT [place] [address] ([facility]) (test code = [facility] 1538) [address] POCT-GLUCOSE [id number] 17:50:00 Test Item Value Reference Range Interpretation Comments POC-GLUCOSE METER 185 mg/dL 70-110 H TESTED AT [place] [address] ([facility]) (test code = [facility] 1538) [address] POCT-GLUCOSE [id number] 12:49:00 Test Item Value Reference Range Interpretation Comments POC-GLUCOSE METER 168 mg/dL 70-110 H TESTED AT [place] [address] ([facility]) (test code = [facility] 1538) [address] CT, CHEST, WITHOUT [id number] 11:27:00FINAL REPORT Chest CT without contrast Reason [...] lymphadenopathy is seen on this noncontrast study. Thecentral airways are patent. A small right and [...] MDReport Verified Date/Time: 02/02/2017 11:27:58 Reading Location: [facility] C013X Ortho Consult Reading Room POCT-GLUCOSE [id number] 08:24:00 Test Item Value Reference Range Interpretation Comments POC-GLUCOSE METER 84 mg/dL 70-110 TESTED AT [facility] 6720 (BEAKER) (test code = [facility]AN [facility] [address] 1538) [id number] 07:42:00 Test Item Value Reference Range Interpretation Comments MAGNESIUM (BEAKER) (test code = 1.8 mg/dL 1.6-2.6 627) BASIC METABOLIC [id number] 07:42:00 Test Item Value Reference Range Interpretation [...] PATIEN TS. CBC W/PLT COUNT & AUTO [id number] 07:40:00 Test Item Value Reference Range Interpretation [...] NEUTROPHILS ABSOLUTE COUNT 5.35 K/ L 1.78-5.38 (AKER) (test code = 670) LYMPHOCYTES ABSOLUTE COUNT 1.84 K/ L 1.32-3.57 (BEAKER) (test code = 414) MONOCYTES ABSOLUTE COUNT (BEAKER) 1.83 K/ L 0.30-0.82 H (test code = 415) EOSINOPHILS ABSOLUTE COUNT 0.16 K/ L 0.04-0.54 (BEAKER) (test code = 416) BASOPHILS ABSOLUTE COUNT (BEAKER) 0.03 K/ L 0.01-0.08 (test code = 417) IMMATURE GRANULOCYTES-RELATIVE 0 % 0-1 PERCENT (AKER) (test code = 2801) POCT-GLUCOSE [id number] 21:29:00 Test Item Value Reference Range Interpretation Comments POC-GLUCOSE METER 273 mg/dL 70-110 H TESTED AT [place] [address] ([facility]) (test code = [facility] 1538) [address] POCT-GLUCOSE [id number] 19:21:00 Test Item Value Reference Range Interpretation Comments POC-GLUCOSE METER 286 mg/dL 70-110 H TESTED AT [place] [address] ([facility]) (test code = [facility] 1538) [address] POCT-GLUCOSE [id number] 17:33:00 Test Item Value Reference Range Interpretation Comments POC-GLUCOSE METER 263 mg/dL 70-110 H TESTED AT [place] [address] ([facility]) (test code = [facility] 1538) [address] POCT-GLUCOSE [id number] 12:25:00 Test Item Value Reference Range Interpretation Comments POC-GLUCOSE METER 196 mg/dL 70-110 H TESTED AT [place] [address] ([facility]) ([facility] = [facility] 1538) [address] CBC W/PLT COUNT & AUTO [id number] 10:54:00 Test Item Value Reference Range Interpretation Comments WHITE BLOOD CELL COUNT ([facility]) 9.0 K/ L 3.5-10.5 (test code = 775) RED BLOOD CELL COUNT ([facility]) 4.43 M/ L 4.63-6.08 L (test code = 761) HEMOGLOBIN ([facility]) (test code = 12.2 GM/DL 13.7-17.5 L [...] (BEAKER) (test code = Normal 762) POCT-GLUCOSE [id number] 08:17:00 Test Item Value Reference Range Interpretation Comments POC-GLUCOSE METER 176 mg/dL 70-110 H TESTED AT [facility] 6720 (BEAKER) (test code = [facility] 1538) [address] [id number] 06:41:00 Test Item Value Reference Range Interpretation Comments MAGNESIUM (BEAKER) (test code = 1.7 mg/dL 1.6-2.6 627) BASIC METABOLIC [id number] 06:41:00 Test Item Value Reference Range Interpretation [...] NOT APPLICABLE FOR DIALYSIS PATIEN TS. POCT-GLUCOSE [id number] 21:33:00 Test Item Value Reference Range Interpretation Comments POC-GLUCOSE METER 295 mg/dL 70-110 H TESTED AT [facility] 6720 (BEAKER) (test code = [place] 1538) [address] POCT-GLUCOSE [id number] 17:47:00 Test Item Value Reference Range Interpretation Comments POC-GLUCOSE METER 277 mg/dL 70-110 H TESTED AT [facility] 6720 (BEAKER) (test code = [facility] [place] 1538) [address] RAD, CHEST, 2 [id number] 15:44:00Reason for exam:->dyspneaFINAL REPORT HISTORY : dyspnea. Comparison: 01/30/2017 Comment: Two views of the chest, PA and lateral, were obtained. The cardiac silhouette size is at the upper limits of normal.No pneumothorax is seen. There are very small bilateral pleural effusions with adjacent consolidations. 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 Multilevel degenerative disc changes of the thoracic spine are seen. There is a mild age-indeterminate compression deformity/fracture of one of the lower thoracic vertebral bodies. Signed: Modesta Moraneport Verified Date/Time: 01/31/2017 15:44:13 Reading Location: [address] Ortho Consult Reading Room -GLUCOSE [id number] 11:51:00 Test Item Value Reference Range Interpretation Comments POC-GLUCOSE METER 238 mg/dL 70-110 H TESTED AT [place] [address] ([facility]) (test code = [facility] 1538) [address] POCT-GLUCOSE [id number] 09:54:00 Test Item Value Reference Range Interpretation Comments POC-GLUCOSE METER 224 mg/dL 70-110 H TESTED AT [place] [address] ([facility]) (test code = [facility] 1538) [address] CBC W/PLT COUNT & AUTO [id number] 05:34:00 Test Item Value Reference Range Interpretation Comments WHITE BLOOD CELL COUNT ([facility]) 9.4 K/ L 3.5-10.5 (test code = 775) RED BLOOD CELL COUNT ([facility]) 4.42 M/ L 4.63-6.08 L (test code = 761) HEMOGLOBIN ([facility]) (test code = 12.1 GM/DL 13.7-17.5 L 410) HEMATOCRIT ([facility]) (test code = 39.0 % 40.1-51.0 L 411) MEAN CORPUSCULAR VOLUME ([facility]) 88.2 fL 79.0-92.2 (test code = 753) MEAN CORPUSCULAR HEMOGLOBIN 27.4 pg 25.7-32.2 ([facility]) (test code = 751) MEAN CORPUSCULAR HEMOGLOBIN [...] 0-1 PERCENT (BEAKER) (test code = 2801) [id number] 05:19:00 Test Item Value Reference Range Interpretation Comments MAGNESIUM (BEAKER) (test code = 1.8 mg/dL 1.6-2.6 627) BASIC METABOLIC [id number] 05:19:00 Test Item Value Reference Range Interpretation [...] APPLICABLE FOR DIALYSIS PATIEN TS. STREP PNEUMONIAE [id number] 23:56:00 Test Item Value Reference Range Interpretation [...] detection limit of the test. LEGIONELLA ANTIGEN, [id number] 23:54:00 Test Item Value Reference Range Interpretation [...] may cau se disease. INFLUENZA A H1N1 [id number] 23:10:00 Test Item Value Reference Range Interpretation Comments INFLUENZA A RNA Not Detected Not Detected, (BEAKER) (test code = Inconclusive 1545) NOVEL H1N1 RNA (BEAKER) Not Detected Not Detected, (test code = 1546) Inconclusive These assays were performed by real-time RT-PCR (push bench operator helper-PCR) utilizing fluorogenic hydrolysis probe technology for the detection of human Influenza A viruses and the differential detection of novel H1N1 Influenza virus in respiratory specimens. The test is composed of (1) an RNA extraction from patient specimen, and (2) push bench operator helper-PCR amplification and detection with human Influenza A and novel D3E1-zukryzjh primers and probes. A well-conserved region of [...] and its performance characteristics determined by the [facility] Pathology Department, Section of Molecular Pathology. It has not been cleared or approved by the U.S. Food and Drug Administration (FDA). Since FDAapproval is not required for clinical use of the test, validation was done as required by The Clinical Laboratory Amendments of 1988.These assays were performed by real-time RT-PCR (push bench operator helper-PCR) utilizing fluorogenic hydrolysis probe technology for the detection of human Influenza A viruses and the differential detection of novel H1N1 Influenza virus in respiratory specimens. The test is composed of (1) an RNA extraction from patient specimen, and (2) push bench operator helper-PCR amplification and detection with human Influenza A and novel W3H7-aootvbyv primers and probes. A well-conserved region of [...] and its performance characteristics determined by the [facility] Pathology Department, Section of Molecular Pathology. It has not been cleared or approved by the U.S. Food and DrugAdministration (FDA). Since FDA approval is not required for clinical use of the test, validation was done as required by The Clinical Laboratory Amendments of 1987. POCT-GLUCOSE [id number] 23:03:00 Test Item Value Reference Range Interpretation Comments POC-GLUCOSE METER 233 mg/dL 70-110 H TESTED AT [facility] 67 (ZHANGBANNER) (test code = [place] 1538) [address] U/S, RENAL, [id number] 22:23:00Reason for exam:->akiFINAL REPORT U/S, RENAL, COMPLETE CLINICAL INDICATION: "heidi" COMPARISON: None TECHNIQUE: The kidneys and urinary bladder were evaluated using real time coley scale and color Dopplersonography. FINDINGS:Right kidney: Atrophic echogenic kidney. No hydronephrosis. Left kidney: Atrophic echogenic kidney. No hydronephrosis. Renal Vasculature: Doppler interrogation reveals preserved vas cular flow in the main renal arteries and veins bilaterally. The visualized portions of the abdominal aorta and IVC are unremarkable. Urinary bladder: Unremarkable. IMPRESSION: No hydronephrosis.Chronic findings as above. Signed: Sariah Padilla MDReport Verified Date/Time: 01/30/2017 22:23:06 Reading Location: [address] Ortho Consult Reading Room SODIUM, RANDOM [id number] 20:40:00 Test Item Value Reference Range Interpretation Comments SODIUM URINE (BEAKER) (test code = < meq/L 243) Reference Range: No NormalsEOSINOPHIL SMEAR, [id number] 20:40:00 Test Item Value Reference Range Interpretation Comments EOSINOPHIL SMEAR, URINE (BEAKER) No EOS seen No EOS seen (test code = 1851) CREATININE, RANDOM [id number] 20:24:00 Test Item Value Reference Range Interpretation Comments CREATININE URINE (BEAKER) (test 113.2 mg/dL code = 375) Reference Range: No NormalsMICROALBUMIN, RANDOM [id number] 20:24:00 Test Item Value Reference Range Interpretation Comments MICROALBUMIN URINE (BEAKER) (test 4.2 mg/dL code = 1794) Reference Range: No NormalsURINALYSIS W/ [id number] 20:14:00 Test Item Value Reference Range Interpretation [...] 516) SOURCE(BEAKER) (test code = Urine, Voided 2151) POCT-GLUCOSE [id number] 18:25:00 Test Item Value Reference Range Interpretation Comments POC-GLUCOSE METER 230 mg/dL 70-110 H TESTED AT [place] [address] (BEAKER) (test code = SHRAVAN [facility] 1538) [address] POCT-GLUCOSE [id number] 13:49:00 Test Item Value Reference Range Interpretation Comments POC-GLUCOSE METER 267 mg/dL 70-110 H TESTED AT [place] [address] (BEBANNER) (test code = [facility] Mandi [facility] 1538) [address] HEMOGLOBIN [id number] 11:50:00 Test Item Value Reference Range Interpretation Comments HEMOGLOBIN A1C (BEAKER) (test code = 10.7 % 4.3-6.1 H 368) TROPONIN [id number] 11:42:00 Test Item Value Reference Range Interpretation [...] acidosis, acute neurological disease, and persistent tachyarrhythmia.POCT-GLUCOSE [id number] 09:41:00 Test Item Value Reference Range Interpretation Comments POC-GLUCOSE METER 228 mg/dL 70-110 H TESTED AT [facility] 6720 (BEAKER) (test code = [place] 1538) [address] RAD, CHEST, 1 VIEW, NON [id number] 07:41:00Reason for exam:->eval pneumoniaShould this be performed at the bedside?->YesFINAL REPORT HISTORY : eval pneumonia. Comparison: None Comment: Single portable view of the chest was obtained. The cardiac silhouette size is enlarged. A left- sided multilead ICDis in place. No pneumothorax or pleural effusion is seen. There is atherosclerotic calcification of the thoracic aorta. There is some patchy left basilar airspace disease. This could represent atelectasis or pneumonitis. Signed: Modesta Moran MDReport Verified Date/Time: 01/30/2017 07:41:41 Reading Location: [address] Transitional Reading Room [id number] 02:54:00 Test Item Value Reference Range Interpretation Comments MAGNESIUM (BEAKER) (test code = 1.6 mg/dL 1.6-2.6 627) BASIC METABOLIC [id number] 02:54:00 Test Item Value Reference Range Interpretation [...] FOR DIALYSIS PATIEN TS. RAPID INFLUENZA A&B [id number] 02:41:00 Test Item Value Reference Range Interpretation Comments RAPID INFLUENZA A AG (BEAKER) Negative Negative, Inconclusive (test code = 1622) RAPID INFLUENZA B AG (BEAKER) Negative Negative, Inconclusive (test code = 1623) CBC W/PLT COUNT & AUTO [id number] 02:07:00 Test Item Value Reference Range Interpretation [...] LYMPHOCYTES ABSOLUTE COUNT 1.82 K/ L 1.32-3.57 (AKER) (test code = 414) MONOCYTES ABSOLUTE COUNT (BEAKER) 1.94 K/ L 0.30-0.82 H (test code = 415) EOSINOPHILS ABSOLUTE COUNT 0.10 K/ L 0.04-0.54 (BEAKER) (test code = 416) BASOPHILS ABSOLUTE COUNT (BEAKER) 0.02 K/ L 0.01-0.08 (test code = 417) IMMATURE GRANULOCYTES-RELATIVE 1 % 0-1 PERCENT (AKER) (test code = 2801) POCT-GLUCOSE [id number] 23:18:00 Test Item Value Reference Range Interpretation Comments POC-GLUCOSE METER 230 mg/dL 70-110 H TESTED AT [facility] 6720 ([facility]) (test code = [facility] [place] 1538) [address] [id number] 10:03:00 Test Item Value Reference Range Interpretation Comments eGFR (test code = eGFR) 74 [facility]SujmskyVFSCIJZDKDPG9653-23-73 10:03:00 Test Item Value Reference Range Interpretation Comments BUN (test code = BUN) 16 7-22 [facility] CenterUqtpwleAKYCYCRAJJUK2985-34-33 10:03:00 Test Item Value Reference Range Interpretation Comments Glucose Lvl (test code = Glucose Lvl) 177 70-99 [facility]QsmzkplLLIMYPQEGXZK9739-08-45 10:03:00 Test Item Value Reference Range Interpretation Comments Calcium Lvl (test code = Calcium Lvl) 8.7 8.5-10.5 [facility] C[id number] 10:03:00 Test Item Value Reference Range Interpretation Comments Creatinine Lvl (test code = Creatinine 1.00 0.50-1.40 Lvl) [facility] CenterViscpdlBIZUTIYFLHXC9513-76-16 10:03:00 Test Item Value Reference Range Interpretation Comments Sodium Lvl (test code = Sodium Lvl) 137 135-145 [facility] CenterKqzzwmwCWIQZWFCUF6723-11-85 10:03:00 Test Item Value Reference Range Interpretation Comments Plt Morph (test code = Normal (09/12/16 5:03 AM) Plt Morph) [facility]QkxhawlRTEZKXEQLT7916-02-62 10:03:00 Test Item Value Reference Range Interpretation Comments Bands (test code = 0.0 See_Comment [Automat ed message] The Bands) system which ge nerated this result transmit vy reference range : <=11.0. The reference r gianfranco was not used to interpr et this result as daquan l/abnormal. [facility] Hospit[id number] 10:03:00 Test Item Value Reference Range Interpretation Comments Atypical Lymphs (test code = Atypical 0.0 Lymphs) [facility] HospitalGwqtherULJFVMLVJN3802-66-66 10:03:00 Test Item Value Reference Range Interpretation Comments Monocytes (test code = Monocytes) 17.0 2.0-12.0 [facility] H[id number] 10:03:00 Test Item Value Reference Range Interpretation Comments RBC Morph (test code = Normal (09/12/16 5:03 AM) RBC Morph) [facility] Hospit[id number] 10:03:00 Test Item Value Reference Range Interpretation Comments Eosinophils (test code = 1.0 See_Comment [A utomated message] The Eosinophils) system which nerated this result tra nsmitted reference range : <=4.0. The reference r gianfranco was not used to int erpret this result as normal/abnormal . [facility] Hospit[id number] 10:03:00 Test Item Value Reference Range Interpretation Comments Lymphocytes (test code = Lymphocytes) 27.0 20.0-40.0 [facility] HospitalHngxbaeXWLOZNRNVL5042-57-90 10:03:00 Test Item Value Reference Range Interpretation Comments Segs-Bands # (test code = Segs-Bands #) 4.8 1.5-8.1 [facility] HospitalZfraqsrKUCKFWZEEY9516-70-28 10:03:00 Test Item Value Reference Range Interpretation Comments Lymphocytes # (test code = Lymphocytes 2.3 1.0-5.5 #) [facility] HospitalQxjxqpdSBMJFQLGBY0903-33-06 10:03:00 Test Item Value Reference Range Interpretation Comments Segs (test code = Segs) 55.0 45.0-75.0 [facility] HospitalVyaheavPQZFFOKCKP3029-52-83 10:03:00 Test Item Value Reference Range Interpretation Comments Eosinophils # (test code 0.1 See_Comment [A utomated message] The = Eosinophils #) system whic h generated this result tra nsmitted reference range : <=0.5. The reference r gianfranco was not used to int erpret this result as normal/abnormal . [facility] HospitalOshxokdFTMGEIALSN6055-81-02 10:03:00 Test Item Value Reference Range Interpretation Comments Monocytes # (test code 1.5 See_Comment [Aut omated message] The = Monocytes #) system which generated this result tra nsmitted reference range : <=0.8. The reference r gianfranco was not used to int erpret this result as normal/abnormal . [facility] HospitalBhzyxisWFHIEWDIXV8261-09-83 10:03:00 Test Item Value Reference Range Interpretation Comments MPV (test code = MPV) 7.7 7.4-10.4 [facility] HospitalSmrtdbyJDAUWKAVRT4693-86-17 10:03:00 Test Item Value Reference Range Interpretation Comments MCH (test code = MCH) 29.8 pg 27.0-31.0 [facility] HospitalNymreobIJGLVKCXSB5556-55-63 10:03:00 Test Item Value Reference Range Interpretation Comments MCV (test code = MCV) 88.2 80.0-94.0 [facility] HospitalLxpntvdRWOKGOVQQO0992-53-36 10:03:00 Test Item Value Reference Range Interpretation Comments Platelet (test code = Platelet) 177 133-450 [facility] HospitalFkthsopCEYYVNMLUX6125-09-05 10:03:00 Test Item Value Reference Range Interpretation Comments RDW (test code = RDW) 14.7 11.5-14.5 [facility] HospitalAvbwkgvMJOFGERASF4871-00-65 10:03:00 Test Item Value Reference Range Interpretation Comments MCHC (test code = MCHC) 33.8 32.0-36.0 [facility] HospitalIocrsrhFXXZZBVESS6263-31-82 10:03:00 Test Item Value Reference Range Interpretation Comments RBC (test code = RBC) 3.97 4.70-6.10 [facility] HospitalLveuihoFYZQRGNNZK4026-74-67 10:03:00 Test Item Value Reference Range Interpretation Comments Hgb (test code = Hgb) 11.8 14.0-18.0 [facility] HospitalWbnjqmgPJNEZANIJE2109-27-46 10:03:00 Test Item Value Reference Range Interpretation Comments WBC (test code = WBC) 8.7 3.7-10.4 [facility] HospitalBfawckpCEAXOYMHXS3282-34-85 10:03:00 Test Item Value Reference Range Interpretation Comments Hct (test code = Hct) 35.0 42.0-54.0 [facility]2017-08-05 10:03:00 Test Item Value Reference Range Interpretation Comments Phosphorus (test code = Phosphorus) 3.1 2.5-4.5 [facility] CenterCHEM [id number] 10:03:00 Test Item Value Reference Range Interpretation Comments Magnesium Lvl (test code = Magnesium 2.6 1.8-2.4 Lvl) [facility] HospitalAgdwhljWQBKHRVGMQGE4903-80-70 10:03:00 Test Item Value Reference Range Interpretation Comments AGAP (test code = AGAP) 11.1 10.0-20.0 [facility] HospitalIpiwwtgHGGITTBFPDNK2527-32-15 10:03:00 Test Item Value Reference Range Interpretation Comments Potassium Lvl (test code = Potassium 4.1 3.5-5.1 Lvl) [facility] HospitalFkuhjedUDQEESFSQSUF7458-23-49 10:03:00 Test Item Value Reference Range Interpretation Comments Chloride Lvl (test code = Chloride Lvl) 105 95-109 [facility] HospitalMkbsulyNFUNZKJARXPJ8169-52-45 10:03:00 Test Item Value Reference Range Interpretation Comments CO2 (test code = CO2) 25 24-32 [facility] HospitalVafotggMQBLVXOOIBKA5707-21-35 10:03:00 Test Item Value Reference Range Interpretation Comments eGFR (test code = eGFR) 74 [facility] HospitalGidtxuoHERCNFVXOHXP2934-24-05 10:03:00 Test Item Value Reference Range Interpretation Comments BUN (test code = BUN) 16 7-22 [facility] HospitalJfybexfDBHCXIHEILQN5378-50-93 10:03:00 Test Item Value Reference Range Interpretation Comments Glucose Lvl (test code = Glucose Lvl) 177 70-99 [facility] HospitalInrxtviSTNIIZTYNGHB7569-79-09 10:03:00 Test Item Value Reference Range Interpretation Comments Calcium Lvl (test code = Calcium Lvl) 8.7 8.5-10.5 [facility] HospitalJfkkxicVODSUNFBNYRA5211-36-08 10:03:00 Test Item Value Reference Range Interpretation Comments Creatinine Lvl (test code = Creatinine 1.00 0.50-1.40 Lvl) [facility] HospitalFxwupstCBSILKVRXHRC1621-99-72 10:03:00 Test Item Value Reference Range Interpretation Comments Sodium Lvl (test code = Sodium Lvl) 137 135-145 [facility] CenterHjnbjlxEZSLUUTGSA0008-29-74 10:03:00 Test Item Value Reference Range Interpretation Comments Plt Morph (test code = Normal (09/12/16 5:03 AM) Plt Morph) [facility] HospitalMqpudrwKPDYUSIJHZ1997-38-24 10:03:00 Test Item Value Reference Range Interpretation Comments Bands (test code = 0.0 See_Comment [Automat ed message] The Bands) system which ge nerated this result transmit vy reference range : <=11.0. The reference r gianfranco was not used to interpr et this result as daquan l/abnormal. [facility] HospitalPhcycghBMZUHLKNEU8256-76-41 10:03:00 Test Item Value Reference Range Interpretation Comments Atypical Lymphs (test code = Atypical 0.0 Lymphs) [facility] HospitalVbpeswfDIBPSCJKGM8772-14-49 10:03:00 Test Item Value Reference Range Interpretation Comments Monocytes (test code = Monocytes) 17.0 2.0-12.0 [facility] HospitalXzbdynqUNAPLZBZXJ6733-08-99 10:03:00 Test Item Value Reference Range Interpretation Comments RBC Morph (test code = Normal (09/12/16 5:03 AM) RBC Morph) [facility] [facility]NXPG[facility]NMJJ4251-99-56 10:03:00 Test Item Value Reference Range Interpretation Comments Eosinophils (test code = 1.0 See_Comment [A utomated message] The Eosinophils) system which ge nerated this result tra nsmitted reference range : <=4.0. The reference r gianfranco was not used to int erpret this result as normal/abnormal . [facility]MjqvchgQGFXMOVBXO2550-31-78 10:03:00 Test Item Value Reference Range Interpretation Comments Lymphocytes (test code = Lymphocytes) 27.0 20.0-40.0 [facility] HospitalZwjqhozVTFWJHWWXR2489-29-21 10:03:00 Test Item Value Reference Range Interpretation Comments Segs-Bands # (test code = Segs-Bands #) 4.8 1.5-8.1 [facility] HospitalKespowgYKYXJBYXFU2329-85-80 10:03:00 Test Item Value Reference Range Interpretation Comments Lymphocytes # (test code = Lymphocytes 2.3 1.0-5.5 #) [facility] HospitalWvytacbPTIXPWXRKM3288-00-10 10:03:00 Test Item Value Reference Range Interpretation Comments Segs (test code = Segs) 55.0 45.0-75.0 [facility] HospitalPvjsucqPYMFXXCYTW2215-89-21 10:03:00 Test Item Value Reference Range Interpretation Comments Eosinophils # (test code 0.1 See_Comment [A utomated message] The = Eosinophils #) system whic h generated this result tra nsmitted reference range : <=0.5. The reference r gianfranco was not used to int erpret this result as normal/abnormal . [facility] HospitalMezojsqTWTOASSDJG1518-77-86 10:03:00 Test Item Value Reference Range Interpretation Comments Monocytes # (test code 1.5 See_Comment [Aut omated message] The = Monocytes #) system which generated this result tra nsmitted reference range : <=0.8. The reference r gianfranco was not used to int erpret this result as normal/abnormal . [facility] HospitalCpuvznqOJDNZBBLFF1268-01-54 10:03:00 Test Item Value Reference Range Interpretation Comments MPV (test code = MPV) 7.7 7.4-10.4 [facility] HospitalErrutnyAHOJTEYHFX8915-59-28 10:03:00 Test Item Value Reference Range Interpretation Comments MCH (test code = MCH) 29.8 pg 27.0-31.0 [facility] HospitalZnbaqytFNPJNTRZGS7288-52-61 10:03:00 Test Item Value Reference Range Interpretation Comments MCV (test code = MCV) 88.2 80.0-94.0 [facility] HospitalGgrmawiVHJGZNKFMU9128-59-20 10:03:00 Test Item Value Reference Range Interpretation Comments Platelet (test code = Platelet) 177 133-450 [facility] HospitalDvmtyzoSIEUGZNAHE7381-44-54 10:03:00 Test Item Value Reference Range Interpretation Comments RDW (test code = RDW) 14.7 11.5-14.5 [facility] HospitalUnbtggfBSUQPJFKSL1252-99-46 10:03:00 Test Item Value Reference Range Interpretation Comments MCHC (test code = MCHC) 33.8 32.0-36.0 [facility] HospitalMffjziqCEWMHEEBDF2771-64-82 10:03:00 Test Item Value Reference Range Interpretation Comments RBC (test code = RBC) 3.97 4.70-6.10 [facility] HospitalWwvuwjjEXFTEHUCXX5422-23-67 10:03:00 Test Item Value Reference Range Interpretation Comments Hgb (test code = Hgb) 11.8 14.0-18.0 [facility] HospitalYzhvtdgWDIVEGQVFS4435-50-04 10:03:00 Test Item Value Reference Range Interpretation Comments WBC (test code = WBC) 8.7 3.7-10.4 [facility] HospitalAswqohdPVSAJJDLCG9598-70-32 10:03:00 Test Item Value Reference Range Interpretation Comments Hct (test code = Hct) 35.0 42.0-54.0 [facility]2017-08-05 10:03:00 Test Item Value Reference Range Interpretation Comments Phosphorus (test code = Phosphorus) 3.1 2.5-4.5 [facility]2017-08-05 10:03:00 Test Item Value Reference Range Interpretation Comments Magnesium Lvl (test code = Magnesium 2.6 1.8-2.4 Lvl) [facility]UnlnbesUOYXWFIUUEMU6995-33-54 10:03:00 Test Item Value Reference Range Interpretation Comments AGAP (test code = AGAP) 11.1 10.0-20.0 [facility]2017-08-05 10:03:00 Test Item Value Reference Range Interpretation Comments Phosphorus (test code = Phosphorus) 3.1 2.5-4.5 [facility]2017-08-05 10:03:00 Test Item Value Reference Range Interpretation Comments Magnesium Lvl (test code = Magnesium 2.6 1.8-2.4 Lvl) [facility] HospitalMfflizxMWBBAVJSOFUS4334-06-01 10:03:00 Test Item Value Reference Range Interpretation Comments AGAP (test code = AGAP) 11.1 10.0-20.0 [facility] HospitalIqtdxayCRLYGLOSDSBT4272-13-63 10:03:00 Test Item Value Reference Range Interpretation Comments Potassium Lvl (test code = Potassium 4.1 3.5-5.1 Lvl) [facility] HospitalIglzeumPYHGUGKNCHFB6328-91-32 10:03:00 Test Item Value Reference Range Interpretation Comments Chloride Lvl (test code = Chloride Lvl) 105 95-109 [facility] HospitalLefvswxITFBGCWNVLLU9909-71-74 10:03:00 Test Item Value Reference Range Interpretation Comments CO2 (test code = CO2) 25 24-32 [facility] HospitalPbwxqqhNAEBWSAOXJKJ3351-40-03 10:03:00 Test Item Value Reference Range Interpretation Comments eGFR (test code = eGFR) 74 [facility] HospitalUujvqrlFSMXZRNORVOZ1702-94-62 10:03:00 Test Item Value Reference Range Interpretation Comments BUN (test code = BUN) 16 7-22 [facility] HospitalBpexwgpOEFSAWOSURQR3301-18-84 10:03:00 Test Item Value Reference Range Interpretation Comments Glucose Lvl (test code = Glucose Lvl) 177 70-99 [facility] HospitalQaurjcyHCGMBYCSAMSO9333-11-86 10:03:00 Test Item Value Reference Range Interpretation Comments Calcium Lvl (test code = Calcium Lvl) 8.7 8.5-10.5 [facility] HospitalVqtajgaIVADVMUZTTHK9241-25-17 10:03:00 Test Item Value Reference Range Interpretation Comments Creatinine Lvl (test code = Creatinine 1.00 0.50-1.40 Lvl) [facility] HospitalUqmwehpZEEVCBQJIRPI1696-65-39 10:03:00 Test Item Value Reference Range Interpretation Comments Potassium Lvl (test code = Potassium 4.1 3.5-5.1 Lvl) [facility] HospitalZvaoqmzCKHKNOPRJISM1004-16-60 10:03:00 Test Item Value Reference Range Interpretation Comments Sodium Lvl (test code = Sodium Lvl) 137 135-145 [facility] HospitalRtjrpdaYXCFODKABD9683-71-47 10:03:00 Test Item Value Reference Range Interpretation Comments Plt Morph (test code = Normal (09/12/16 5:03 AM) Plt Morph) [facility] HospitalAtoezbgXIIPHPMFHF5151-28-39 10:03:00 Test Item Value Reference Range Interpretation Comments Bands (test code = 0.0 See_Comment [Automat ed message] The Bands) system which ge nerated this result transmit vy reference range : <=11.0. The reference r gianfranco was not used to interpr et this result as daquan l/abnormal. [facility] HospitalNhfecycIPCQYTOZLJ4427-80-76 10:03:00 Test Item Value Reference Range Interpretation Comments Atypical Lymphs (test code = Atypical 0.0 Lymphs) [facility] HospitalXyqepnjUBXOSUFPQL6706-09-66 10:03:00 Test Item Value Reference Range Interpretation Comments Monocytes (test code = Monocytes) 17.0 2.0-12.0 [facility] HospitalCqmxsdtULYMYTQLEH7475-03-64 10:03:00 Test Item Value Reference Range Interpretation Comments RBC Morph (test code = Normal (09/12/16 5:03 AM) RBC Morph) [facility] HospitalIjeadyfXPPQLOOFWS6342-89-53 10:03:00 Test Item Value Reference Range Interpretation Comments Eosinophils (test code = 1.0 See_Comment [A utomated message] The Eosinophils) system which ge nerated this result tra nsmitted reference range : <=4.0. The reference r gianfranco was not used to int erpret this result as normal/abnormal . [facility] HospitalNimnawzYYAAEKCGXP0324-70-00 10:03:00 Test Item Value Reference Range Interpretation Comments Lymphocytes (test code = Lymphocytes) 27.0 20.0-40.0 [facility] HospitalDgzkaydCJSEGLDUGI7822-89-52 10:03:00 Test Item Value Reference Range Interpretation Comments Segs-Bands # (test code = Segs-Bands #) 4.8 1.5-8.1 [facility] HospitalViryqazZZXTKRUBHX5290-57-69 10:03:00 Test Item Value Reference Range Interpretation Comments Lymphocytes # (test code = Lymphocytes 2.3 1.0-5.5 #) [facility]JsmlxebMDQFQIPEHHFE1880-59-25 10:03:00 Test Item Value Reference Range Interpretation Comments Chloride Lvl (test code = Chloride Lvl) 105 95-109 [facility] HospitalElzdmwqBWMYQVHJLH0433-41-12 10:03:00 Test Item Value Reference Range Interpretation Comments Segs (test code = Segs) 55.0 45.0-75.0 [facility] HospitalIeiyhewYKOCYFOZTT7677-20-92 10:03:00 Test Item Value Reference Range Interpretation Comments Eosinophils # (test code 0.1 See_Comment [A utomated message] The = Eosinophils #) system whic h generated this result tra nsmitted reference range : <=0.5. The reference r gianfranco was not used to int erpret this result as normal/abnormal . [facility] HospitalSkbdstuVRIKYPNOFH7065-04-26 10:03:00 Test Item Value Reference Range Interpretation Comments Monocytes # (test code 1.5 See_Comment [Aut omated message] The = Monocytes #) system which generated this result tra nsmitted reference range : <=0.8. The reference r gianfranco was not used to int erpret this result as normal/abnormal . [facility] HospitalNkkdhyzHRVMAXOQQD1233-49-55 10:03:00 Test Item Value Reference Range Interpretation Comments MPV (test code = MPV) 7.7 7.4-10.4 [facility] HospitalSpfgifgWHTNEBKOIA1524-46-05 10:03:00 Test Item Value Reference Range Interpretation Comments MCH (test code = MCH) 29.8 pg 27.0-31.0 [facility] HospitalBxapnkdNVFILVGFQO0900-59-49 10:03:00 Test Item Value Reference Range Interpretation Comments MCV (test code = MCV) 88.2 80.0-94.0 [facility] HospitalJcdaxmjKSWXODHQUW7095-64-91 10:03:00 Test Item Value Reference Range Interpretation Comments Platelet (test code = Platelet) 177 133-450 [facility] HospitalAwjteezCNPWKHNNCU3700-07-86 10:03:00 Test Item Value Reference Range Interpretation Comments RDW (test code = RDW) 14.7 11.5-14.5 [facility] HospitalAkmgcejBEDVDOOYCQ7115-94-63 10:03:00 Test Item Value Reference Range Interpretation Comments MCHC (test code = MCHC) 33.8 32.0-36.0 [facility] HospitalWssdbsdQYHSXZYCKH2777-13-41 10:03:00 Test Item Value Reference Range Interpretation Comments RBC (test code = RBC) 3.97 4.70-6.10 [facility] HospitalKjxyfayJGTLZQPSAA9835-35-65 10:03:00 Test Item Value Reference Range Interpretation Comments Hgb (test code = Hgb) 11.8 14.0-18.0 [facility] HospitalQicebyhPWDVMLVVAG1775-77-06 10:03:00 Test Item Value Reference Range Interpretation Comments WBC (test code = WBC) 8.7 3.7-10.4 [facility] HospitalJgekloxZXXEMXCNKT1816-80-28 10:03:00 Test Item Value Reference Range Interpretation Comments Hct (test code = Hct) 35.0 42.0-54.0 [facility]IpcorlyDGIQUJIUJPAT2980-96-55 10:03:00 Test Item Value Reference Range Interpretation Comments CO2 (test code = CO2) 25 24-32 [facility] HospitalEoygzfiTJGCSYYCJIBU4068-31-91 10:03:00 Test Item Value Reference Range Interpretation Comments eGFR (test code = eGFR) 74 [facility] HospitalEdrofipBFEZGELLHUTP0065-00-51 10:03:00 Test Item Value Reference Range Interpretation Comments BUN (test code = BUN) 16 7-22 [facility] HospitalVnumhsaISXMHPUJKUQA1658-55-84 10:03:00 Test Item Value Reference Range Interpretation Comments Glucose Lvl (test code = Glucose Lvl) 177 70-99 [facility] HospitalXkgouebKZHCINXVFAXY3997-28-92 10:03:00 Test Item Value Reference Range Interpretation Comments Calcium Lvl (test code = Calcium Lvl) 8.7 8.5-10.5 [facility] HospitalTjzywmlXNELCJSSLIJD1656-55-72 10:03:00 Test Item Value Reference Range Interpretation Comments Creatinine Lvl (test code = Creatinine 1.00 0.50-1.40 Lvl) [facility]ErsgkieSVFDBLCVUNZO2104-03-09 10:03:00 Test Item Value Reference Range Interpretation Comments Sodium Lvl (test code = Sodium Lvl) 137 135-145 [facility] HospitalJcugxnxMOAYDBDUBI9217-15-62 10:03:00 Test Item Value Reference Range Interpretation Comments Plt Morph (test code = Normal (09/12/16 5:03 AM) Plt Morph) [facility] HospitalVqikheaXJDAYBXTXV5354-06-74 10:03:00 Test Item Value Reference Range Interpretation Comments Bands (test code = 0.0 See_Comment [Automat ed message] The Bands) system which ge nerated this result transmit vy reference range : <=11.0. The reference r gianfranco was not used to interpr et this result as daquan l/abnormal. [facility] HospitalMxmbzviNFSWFIPEIW1849-82-32 10:03:00 Test Item Value Reference Range Interpretation Comments Atypical Lymphs (test code = Atypical 0.0 Lymphs) [facility] HospitalPdkjubqLQZKQEXUWU3428-30-78 10:03:00 Test Item Value Reference Range Interpretation Comments Monocytes (test code = Monocytes) 17.0 2.0-12.0 [facility] HospitalTexqgnsWMBMMKKZRQ8074-02-81 10:03:00 Test Item Value Reference Range Interpretation Comments RBC Morph (test code = Normal (09/12/16 5:03 AM) RBC Morph) [facility] HospitalDuqxqkcFGRFTJXMJY8171-23-48 10:03:00 Test Item Value Reference Range Interpretation Comments Eosinophils (test code = 1.0 See_Comment [A utomated message] The Eosinophils) system which ge nerated this result tra nsmitted reference range : <=4.0. The reference r gianfranco was not used to int erpret this result as normal/abnormal . [facility] HospitalIlkxwwcPHCFNAHHIX6579-55-06 10:03:00 Test Item Value Reference Range Interpretation Comments Lymphocytes (test code = Lymphocytes) 27.0 20.0-40.0 [facility] HospitalNrchetgTVKNZZVGDH8475-39-19 10:03:00 Test Item Value Reference Range Interpretation Comments Segs-Bands # (test code = Segs-Bands #) 4.8 1.5-8.1 [facility] HospitalOwfgfuqPKIACKQLLS3062-10-60 10:03:00 Test Item Value Reference Range Interpretation Comments Lymphocytes # (test code = Lymphocytes 2.3 1.0-5.5 #) [facility] HospitalWuvwjpvZOVQSDYBUC5620-06-74 10:03:00 Test Item Value Reference Range Interpretation Comments Segs (test code = Segs) 55.0 45.0-75.0 [facility] HospitalOglvotzAIQTZGZQAL2415-16-25 10:03:00 Test Item Value Reference Range Interpretation Comments Eosinophils # (test code 0.1 See_Comment [A utomated message] The = Eosinophils #) system whic h generated this result tra nsmitted reference range : <=0.5. The reference r gianfranco was not used to int erpret this result as normal/abnormal . [facility] HospitalFqynqgiYGDXBZPPCY8122-28-63 10:03:00 Test Item Value Reference Range Interpretation Comments Monocytes # (test code 1.5 See_Comment [Aut omated message] The = Monocytes #) system which generated this result tra nsmitted reference range : <=0.8. The reference r gianfranco was not used to int erpret this result as normal/abnormal . [facility] HospitalYpgxhaeNREFEOZRGP0465-66-54 10:03:00 Test Item Value Reference Range Interpretation Comments MPV (test code = MPV) 7.7 7.4-10.4 [facility] HospitalNybrnclLXWCWJJTQF4179-95-72 10:03:00 Test Item Value Reference Range Interpretation Comments MCH (test code = MCH) 29.8 pg 27.0-31.0 [facility] HospitalUiokzdwVXIOZDAOTC1443-08-42 10:03:00 Test Item Value Reference Range Interpretation Comments MCV (test code = MCV) 88.2 80.0-94.0 [facility] HospitalCnohsqjSYHAWVAFDK2923-50-85 10:03:00 Test Item Value Reference Range Interpretation Comments Platelet (test code = Platelet) 177 133-450 [facility] HospitalPuteldySBMZUSOTYP8162-35-24 10:03:00 Test Item Value Reference Range Interpretation Comments RDW (test code = RDW) 14.7 11.5-14.5 [facility] HospitalVkmivgaAEHYPLZMHT1000-11-52 10:03:00 Test Item Value Reference Range Interpretation Comments MCHC (test code = MCHC) 33.8 32.0-36.0 [facility] HospitalSniyuubOOVWTPWQZN7538-66-93 10:03:00 Test Item Value Reference Range Interpretation Comments RBC (test code = RBC) 3.97 4.70-6.10 [facility] HospitalSghxyeeBWVZQQRWSC3230-37-78 10:03:00 Test Item Value Reference Range Interpretation Comments Hgb (test code = Hgb) 11.8 14.0-18.0 [facility] HospitalHwgkgelQDNDHBPOAZ6504-32-58 10:03:00 Test Item Value Reference Range Interpretation Comments WBC (test code = WBC) 8.7 3.7-10.4 [facility] HospitalZnabxghCIHQHTNCJW3543-61-40 10:03:00 Test Item Value Reference Range Interpretation Comments Hct (test code = Hct) 35.0 42.0-54.0 [facility]2017-08-05 10:03:00 Test Item Value Reference Range Interpretation Comments Phosphorus (test code = Phosphorus) 3.1 2.5-4.5 [facility]2017-08-05 10:03:00 Test Item Value Reference Range Interpretation Comments Magnesium Lvl (test code = Magnesium 2.6 1.8-2.4 Lvl) [facility] HospitalZtqiplhKIMXMRJALQNV1385-70-30 10:03:00 Test Item Value Reference Range Interpretation Comments AGAP (test code = AGAP) 11.1 10.0-20.0 [facility]XgrlwreLKPBURGNYZNN7540-28-10 10:03:00 Test Item Value Reference Range Interpretation Comments Potassium Lvl (test code = Potassium 4.1 3.5-5.1 Lvl) [facility] HospitalSoqoseyZPOFGXDEVVPP1109-60-73 10:03:00 Test Item Value Reference Range Interpretation Comments Chloride Lvl (test code = Chloride Lvl) 105 95-109 [facility] HospitalCmxnbkyQJLNDNEGRABY0564-68-50 10:03:00 Test Item Value Reference Range Interpretation Comments CO2 (test code = CO2) 25 24-32 [facility]UyevmqvXMTBPTODJYCE1623-51-05 10:03:00 Test Item Value Reference Range Interpretation Comments eGFR (test code = eGFR) 74 [facility] HospitalUgtcwskJUXNANWKFXNU6257-45-84 10:03:00 Test Item Value Reference Range Interpretation Comments BUN (test code = BUN) 16 7-22 [facility] HospitalBwkcahgIFCUJOKYUEPU8683-42-56 10:03:00 Test Item Value Reference Range Interpretation Comments Glucose Lvl (test code = Glucose Lvl) 177 70-99 [facility] HospitalOdablfnCCMWIFXXXZNL2067-26-48 10:03:00 Test Item Value Reference Range Interpretation Comments Calcium Lvl (test code = Calcium Lvl) 8.7 8.5-10.5 [facility] HospitalOdkchesCMDFZTTNCXGU5714-16-05 10:03:00 Test Item Value Reference Range Interpretation Comments Creatinine Lvl (test code = Creatinine 1.00 0.50-1.40 Lvl) [facility] HospitalNpxgywgDADKRSQVWRZK3168-39-57 10:03:00 Test Item Value Reference Range Interpretation Comments Sodium Lvl (test code = Sodium Lvl) 137 135-145 [facility] HospitalAyqbozgMHAVCZNYEK7608-35-44 10:03:00 Test Item Value Reference Range Interpretation Comments Plt Morph (test code = Normal (09/12/16 5:03 AM) Plt Morph) [facility] HospitalWghhxhiHFJQPZTGTV6634-55-38 10:03:00 Test Item Value Reference Range Interpretation Comments Bands (test code = 0.0 See_Comment [Automat ed message] The Bands) system which ge nerated this result transmit vy reference range : <=11.0. The reference r gianfranco was not used to interpr et this result as daquan l/abnormal. [facility] HospitalOnbhwykGSQJVMCRBE0794-33-09 10:03:00 Test Item Value Reference Range Interpretation Comments Atypical Lymphs (test code = Atypical 0.0 Lymphs) [facility] HospitalAzadsurXTNIITCTHK7817-29-14 10:03:00 Test Item Value Reference Range Interpretation Comments Monocytes (test code = Monocytes) 17.0 2.0-12.0 [facility] HospitalJpsxfziSULEVIDFJG7108-06-00 10:03:00 Test Item Value Reference Range Interpretation Comments RBC Morph (test code = Normal (09/12/16 5:03 AM) RBC Morph) [facility] HospitalRvjrchkXLIECQJRYE0193-54-76 10:03:00 Test Item Value Reference Range Interpretation Comments Eosinophils (test code = 1.0 See_Comment [A utomated message] The Eosinophils) system which ge nerated this result tra nsmitted reference range : <=4.0. The reference r gianfranco was not used to int erpret this result as normal/abnormal . [facility] HospitalKydhfvyNMMKVXPGAL0789-58-34 10:03:00 Test Item Value Reference Range Interpretation Comments Lymphocytes (test code = Lymphocytes) 27.0 20.0-40.0 [facility] HospitalMldgifbGEEPBFJIQP2036-16-48 10:03:00 Test Item Value Reference Range Interpretation Comments Segs-Bands # (test code = Segs-Bands #) 4.8 1.5-8.1 [facility] HospitalCpgupftFCRKOGELWO3700-81-20 10:03:00 Test Item Value Reference Range Interpretation Comments Lymphocytes # (test code = Lymphocytes 2.3 1.0-5.5 #) [facility] HospitalYlyzgprTHAXMGBHHG5302-83-99 10:03:00 Test Item Value Reference Range Interpretation Comments Segs (test code = Segs) 55.0 45.0-75.0 [facility] HospitalCfvvzalLFHHDJSZTR9366-77-32 10:03:00 Test Item Value Reference Range Interpretation Comments Eosinophils # (test code 0.1 See_Comment [A utomated message] The = Eosinophils #) system whic h generated this result tra nsmitted reference range : <=0.5. The reference r gianfranco was not used to int erpret this result as normal/abnormal . [facility] HospitalGweybveYTWYNHXYFX0552-66-28 10:03:00 Test Item Value Reference Range Interpretation Comments Monocytes # (test code 1.5 See_Comment [Aut omated message] The = Monocytes #) system which generated this result tra nsmitted reference range : <=0.8. The reference r gianfranco was not used to int erpret this result as normal/abnormal . [facility] HospitalXnaoabuNPPCMBXZWI1668-94-54 10:03:00 Test Item Value Reference Range Interpretation Comments MPV (test code = MPV) 7.7 7.4-10.4 [facility] HospitalMcjunslKOPMNRVTZI8815-95-57 10:03:00 Test Item Value Reference Range Interpretation Comments MCH (test code = MCH) 29.8 pg 27.0-31.0 [facility] HospitalJufbnmcIQPTCNMGNB1797-64-17 10:03:00 Test Item Value Reference Range Interpretation Comments MCV (test code = MCV) 88.2 80.0-94.0 [facility] HospitalYnlegiiOZMCTCIPUX5444-32-11 10:03:00 Test Item Value Reference Range Interpretation Comments Platelet (test code = Platelet) 177 133-450 [facility] HospitalSxzujtkWOWFPTNPWP0741-80-37 10:03:00 Test Item Value Reference Range Interpretation Comments RDW (test code = RDW) 14.7 11.5-14.5 [facility] HospitalQefhlamEWNXINYBTQ0844-95-29 10:03:00 Test Item Value Reference Range Interpretation Comments MCHC (test code = MCHC) 33.8 32.0-36.0 [facility] HospitalJogyiilMDSEIDQSBI5531-87-88 10:03:00 Test Item Value Reference Range Interpretation Comments RBC (test code = RBC) 3.97 4.70-6.10 [facility] HospitalAubhzikJMIMGFQIMT2617-12-84 10:03:00 Test Item Value Reference Range Interpretation Comments Hgb (test code = Hgb) 11.8 14.0-18.0 [facility] HospitalFwmrirmIGCAWETHSF2318-73-72 10:03:00 Test Item Value Reference Range Interpretation Comments WBC (test code = WBC) 8.7 3.7-10.4 [facility] HospitalDpquyrsMULYVKRAGB3228-66-35 10:03:00 Test Item Value Reference Range Interpretation Comments Hct (test code = Hct) 35.0 42.0-54.0 [facility]2017-08-05 10:03:00 Test Item Value Reference Range Interpretation Comments Phosphorus (test code = Phosphorus) 3.1 2.5-4.5 [facility]2017-08-05 10:03:00 Test Item Value Reference Range Interpretation Comments Magnesium Lvl (test code = Magnesium 2.6 1.8-2.4 Lvl) [facility] HospitalVjyblttOYFTEQSLWZFB5629-75-69 10:03:00 Test Item Value Reference Range Interpretation Comments AGAP (test code = AGAP) 11.1 10.0-20.0 [facility] HospitalJxrmuvpRKXQUFDCEAJA7165-67-55 10:03:00 Test Item Value Reference Range Interpretation Comments Potassium Lvl (test code = Potassium 4.1 3.5-5.1 Lvl) [facility] HospitalMjlzluaTFWIIQGYVKAE5007-22-98 10:03:00 Test Item Value Reference Range Interpretation Comments Chloride Lvl (test code = Chloride Lvl) 105 95-109 [facility] HospitalMvtbfgnBSNXLPWAARYG7324-57-05 10:03:00 Test Item Value Reference Range Interpretation Comments CO2 (test code = CO2) 25 24-32 [facility] HospitalShyzubcOWXUAEYRCFBD8371-67-53 10:03:00 Test Item Value Reference Range Interpretation Comments eGFR (test code = eGFR) 74 [facility] HospitalAmijxoePHSNVUUVNYZT9594-64-61 10:03:00 Test Item Value Reference Range Interpretation Comments BUN (test code = BUN) 16 7-22 [facility] HospitalZbygpnqUCRNWIRWTKKE0633-98-16 10:03:00 Test Item Value Reference Range Interpretation Comments Glucose Lvl (test code = Glucose Lvl) 177 70-99 [facility] HospitalUnpqlbtGOBFLOYCCHON5381-64-19 10:03:00 Test Item Value Reference Range Interpretation Comments Calcium Lvl (test code = Calcium Lvl) 8.7 8.5-10.5 [facility] HospitalIqpaqahZFRHMQDKDZVZ0796-91-14 10:03:00 Test Item Value Reference Range Interpretation Comments Creatinine Lvl (test code = Creatinine 1.00 0.50-1.40 Lvl) [facility] HospitalFwvgdjnYSSBAJTFZPMO7264-15-54 10:03:00 Test Item Value Reference Range Interpretation Comments Sodium Lvl (test code = Sodium Lvl) 137 135-145 [facility] HospitalQvugzakCETOBRBPSX6851-33-98 10:03:00 Test Item Value Reference Range Interpretation Comments Plt Morph (test code = Normal (09/12/16 5:03 AM) Plt Morph) [facility] HospitalFclwmfuRTDJTOXZDV6216-17-71 10:03:00 Test Item Value Reference Range Interpretation Comments Bands (test code = 0.0 See_Comment [Automat ed message] The Bands) system which ge nerated this result transmit vy reference range : <=11.0. The reference r gianfranco was not used to interpr et this result as daquan l/abnormal. [facility] HospitalHakklhrNNDEKOGAJK2662-78-62 10:03:00 Test Item Value Reference Range Interpretation Comments Atypical Lymphs (test code = Atypical 0.0 Lymphs) [facility] HospitalNdhikqeMDFPVJOABP3271-73-02 10:03:00 Test Item Value Reference Range Interpretation Comments Monocytes (test code = Monocytes) 17.0 2.0-12.0 [facility] HospitalAnzjmnaOMBMOAZRHB9615-64-42 10:03:00 Test Item Value Reference Range Interpretation Comments RBC Morph (test code = Normal (09/12/16 5:03 AM) RBC Morph) [facility] HospitalFxbynrwSPRTQUKVBH4300-42-12 10:03:00 Test Item Value Reference Range Interpretation Comments Eosinophils (test code = 1.0 See_Comment [A utomated message] The Eosinophils) system which ge nerated this result tra nsmitted reference range : <=4.0. The reference r gianfranco was not used to int erpret this result as normal/abnormal . [facility] HospitalLxrnqriZUJIXKDACO1469-52-12 10:03:00 Test Item Value Reference Range Interpretation Comments Lymphocytes (test code = Lymphocytes) 27.0 20.0-40.0 [facility] HospitalRsyvomkEXCTBIYNTS9484-26-02 10:03:00 Test Item Value Reference Range Interpretation Comments Segs-Bands # (test code = Segs-Bands #) 4.8 1.5-8.1 [facility] HospitalIttjgalWJBLJUKJAJ1048-22-80 10:03:00 Test Item Value Reference Range Interpretation Comments Lymphocytes # (test code = Lymphocytes 2.3 1.0-5.5 #) [facility] HospitalMptgfygBSIMOCPBCP8854-41-71 10:03:00 Test Item Value Reference Range Interpretation Comments Segs (test code = Segs) 55.0 45.0-75.0 [facility] HospitalRcuovtlHKBZIVEAPD5504-42-35 10:03:00 Test Item Value Reference Range Interpretation Comments Eosinophils # (test code 0.1 See_Comment [A utomated message] The = Eosinophils #) system whic h generated this result tra nsmitted reference range : <=0.5. The reference r gianfranco was not used to int erpret this result as normal/abnormal . [facility] HospitalDddohjkKDXBBHHVXX9224-10-82 10:03:00 Test Item Value Reference Range Interpretation Comments Monocytes # (test code 1.5 See_Comment [Aut omated message] The = Monocytes #) system which generated this result tra nsmitted reference range : <=0.8. The reference r gianfranco was not used to int erpret this result as normal/abnormal . [facility] HospitalGzwcnobXZDRMAZIFM5533-26-95 10:03:00 Test Item Value Reference Range Interpretation Comments MPV (test code = MPV) 7.7 7.4-10.4 [facility] HospitalNjblpplWKEDVWQGHW4552-82-09 10:03:00 Test Item Value Reference Range Interpretation Comments MCH (test code = MCH) 29.8 pg 27.0-31.0 [facility] HospitalSjvbczbQULSLSJUDE6236-48-61 10:03:00 Test Item Value Reference Range Interpretation Comments MCV (test code = MCV) 88.2 80.0-94.0 [facility] HospitalLrfekbrCSSAOVYGEC7858-99-81 10:03:00 Test Item Value Reference Range Interpretation Comments Platelet (test code = Platelet) 177 133-450 [facility] HospitalOtdtgmeITPBUINUBC6627-05-12 10:03:00 Test Item Value Reference Range Interpretation Comments RDW (test code = RDW) 14.7 11.5-14.5 [facility] HospitalNworctzXDAHERKKTH3479-25-82 10:03:00 Test Item Value Reference Range Interpretation Comments MCHC (test code = MCHC) 33.8 32.0-36.0 [facility] HospitalOwjzayoGJVCSKRBBR9017-07-02 10:03:00 Test Item Value Reference Range Interpretation Comments RBC (test code = RBC) 3.97 4.70-6.10 [facility] HospitalHacycgtVKNGODAPOW6122-39-80 10:03:00 Test Item Value Reference Range Interpretation Comments Hgb (test code = Hgb) 11.8 14.0-18.0 [facility] HospitalDcoyrvkQHREPEFGFZ8194-59-01 10:03:00 Test Item Value Reference Range Interpretation Comments WBC (test code = WBC) 8.7 3.7-10.4 [facility] HospitalGxpveuoNLTIPXXNTY4030-36-76 10:03:00 Test Item Value Reference Range Interpretation Comments Hct (test code = Hct) 35.0 42.0-54.0 [facility]2017-08-05 10:03:00 Test Item Value Reference Range Interpretation Comments Phosphorus (test code = Phosphorus) 3.1 2.5-4.5 [facility]2017-08-05 10:03:00 Test Item Value Reference Range Interpretation Comments Magnesium Lvl (test code = Magnesium 2.6 1.8-2.4 Lvl) [facility]bdmsuQUYFAONVTQPZ4786-74-29 10:03:00 Test Item Value Reference Range Interpretation Comments AGAP (test code = AGAP) 11.1 10.0-20.0 [facility] HospitalHsywkjeKQRCPBPVRQKT9454-41-91 10:03:00 Test Item Value Reference Range Interpretation Comments Potassium Lvl (test code = Potassium 4.1 3.5-5.1 Lvl) [facility] HospitalAtpzfiyBXXSHLXDYAHE1892-07-40 10:03:00 Test Item Value Reference Range Interpretation Comments Chloride Lvl (test code = Chloride Lvl) 105 95-109 [facility] HospitalTeduomnRACKQIJZMFSB3571-85-16 10:03:00 Test Item Value Reference Range Interpretation Comments CO2 (test code = CO2) 25 24-32 [facility] HospitalIgmwxelPRNPHZKDTQYB3235-04-15 10:03:00 Test Item Value Reference Range Interpretation Comments eGFR (test code = eGFR) 74 [facility] HospitalVeggqjzEKLGJOVXOUOK1963-09-33 10:03:00 Test Item Value Reference Range Interpretation Comments BUN (test code = BUN) 16 7-22 [facility] HospitalQwomalpUPSRECJJDTZF7062-92-62 10:03:00 Test Item Value Reference Range Interpretation Comments Glucose Lvl (test code = Glucose Lvl) 177 70-99 [facility] HospitalPvrwfpgZXYLSMAYTEZS1976-96-27 10:03:00 Test Item Value Reference Range Interpretation Comments Calcium Lvl (test code = Calcium Lvl) 8.7 8.5-10.5 [facility] HospitalNzmecfkVHTSFQPGEYVM1168-43-86 10:03:00 Test Item Value Reference Range Interpretation Comments Creatinine Lvl (test code = Creatinine 1.00 0.50-1.40 Lvl) [facility] HospitalVtvtdqdBDGCGWHZSWXD8473-75-81 10:03:00 Test Item Value Reference Range Interpretation Comments Sodium Lvl (test code = Sodium Lvl) 137 135-145 [facility] HospitalJdvhdldCJUCRTTGVX2910-45-05 10:03:00 Test Item Value Reference Range Interpretation Comments Plt Morph (test code = Normal (09/12/16 5:03 AM) Plt Morph) [facility] HospitalBpdrxjpLOIYIWYGGR6631-63-97 10:03:00 Test Item Value Reference Range Interpretation Comments Bands (test code = 0.0 See_Comment [Automat ed message] The Bands) system which ge nerated this result transmit vy reference range : <=11.0. The reference r gianfranco was not used to interpr et this result as daquan l/abnormal. [facility] HospitalCoryhveCEUKQJSJUU8097-28-52 10:03:00 Test Item Value Reference Range Interpretation Comments Atypical Lymphs (test code = Atypical 0.0 Lymphs) [facility] HospitalRalwhrcBPTUAIBYPK8937-12-20 10:03:00 Test Item Value Reference Range Interpretation Comments Monocytes (test code = Monocytes) 17.0 2.0-12.0 [facility] HospitalBwczjgvIVFKGTCNEP1734-99-60 10:03:00 Test Item Value Reference Range Interpretation Comments RBC Morph (test code = Normal (09/12/16 5:03 AM) RBC Morph) [facility] HospitalDtzovvhEJBZQWDTCN3368-21-13 10:03:00 Test Item Value Reference Range Interpretation Comments Eosinophils (test code = 1.0 See_Comment [A utomated message] The Eosinophils) system which ge nerated this result tra nsmitted reference range : <=4.0. The reference r gianfranco was not used to int erpret this result as normal/abnormal . [facility] HospitalAvedosrMKOIRBMGJD5420-97-28 10:03:00 Test Item Value Reference Range Interpretation Comments Lymphocytes (test code = Lymphocytes) 27.0 20.0-40.0 [facility] HospitalDdnyzxsIPOFBGKMXN7825-79-47 10:03:00 Test Item Value Reference Range Interpretation Comments Segs-Bands # (test code = Segs-Bands #) 4.8 1.5-8.1 [facility] HospitalIxxtpttSLQTXUVHUP9959-77-42 10:03:00 Test Item Value Reference Range Interpretation Comments Lymphocytes # (test code = Lymphocytes 2.3 1.0-5.5 #) [facility] HospitalKjhovzsNIBMYAREGX7554-14-59 10:03:00 Test Item Value Reference Range Interpretation Comments Segs (test code = Segs) 55.0 45.0-75.0 [facility] HospitalPpoeyesOTHABQARQG1715-78-29 10:03:00 Test Item Value Reference Range Interpretation Comments Eosinophils # (test code 0.1 See_Comment [A utomated message] The = Eosinophils #) system whic h generated this result tra nsmitted reference range : <=0.5. The reference r gianfranco was not used to int erpret this result as normal/abnormal . [facility] HospitalYycqqsaIFEKJLBTMF1635-62-29 10:03:00 Test Item Value Reference Range Interpretation Comments Monocytes # (test code 1.5 See_Comment [Aut omated message] The = Monocytes #) system which generated this result tra nsmitted reference range : <=0.8. The reference r gianfranco was not used to int erpret this result as normal/abnormal . [facility] HospitalJktrjisPRKORWZLHM0809-30-81 10:03:00 Test Item Value Reference Range Interpretation Comments MPV (test code = MPV) 7.7 7.4-10.4 [facility] HospitalApdwcnuHAYAMYWGBL3563-13-31 10:03:00 Test Item Value Reference Range Interpretation Comments MCH (test code = MCH) 29.8 pg 27.0-31.0 [facility] HospitalYwomtkeKAMXGQFHJR3389-10-50 10:03:00 Test Item Value Reference Range Interpretation Comments MCV (test code = MCV) 88.2 80.0-94.0 [facility] HospitalCmrpdkdTKJLCFSIUN7572-91-02 10:03:00 Test Item Value Reference Range Interpretation Comments Platelet (test code = Platelet) 177 133-450 [facility]LvcmkbvCBXINFSYIW8724-57-84 10:03:00 Test Item Value Reference Range Interpretation Comments RDW (test code = RDW) 14.7 11.5-14.5 [facility] HospitalFkzwopoGHJSHTBELP0408-72-79 10:03:00 Test Item Value Reference Range Interpretation Comments MCHC (test code = MCHC) 33.8 32.0-36.0 [facility] HospitalPhhxrdyAJGAPCFNRE1611-28-83 10:03:00 Test Item Value Reference Range Interpretation Comments RBC (test code = RBC) 3.97 4.70-6.10 [facility] HospitalXjtvkrrWTHUAABFTY4148-94-34 10:03:00 Test Item Value Reference Range Interpretation Comments Hgb (test code = Hgb) 11.8 14.0-18.0 [facility] HospitalPaymadwFJPXGXUVFV7134-67-76 10:03:00 Test Item Value Reference Range Interpretation Comments WBC (test code = WBC) 8.7 3.7-10.4 [facility] HospitalMwadtwhSFAXXAAYBD9586-01-18 10:03:00 Test Item Value Reference Range Interpretation Comments Hct (test code = Hct) 35.0 42.0-54.0 [facility]CHE[facility] YSPDZ0894-29-40 10:03:00 Test Item Value Reference Range Interpretation Comments Phosphorus (test code = Phosphorus) 3.1 2.5-4.5 [facility]CHE[facility] RQCWV3289-95-76 10:03:00 Test Item Value Reference Range Interpretation Comments Magnesium Lvl (test code = Magnesium 2.6 1.8-2.4 Lvl) [facility]LlpvmzzHVEWZOTZLHXV5399-34-93 10:03:00 Test Item Value Reference Range Interpretation Comments AGAP (test code = AGAP) 11.1 10.0-20.0 [facility] HospitalOhsoldgLVFLWTSKLICF8318-94-27 10:03:00 Test Item Value Reference Range Interpretation Comments Potassium Lvl (test code = Potassium 4.1 3.5-5.1 Lvl) [facility] HospitalCpxgraaIPVPWLCBPBYI3770-26-81 10:03:00 Test Item Value Reference Range Interpretation Comments Chloride Lvl (test code = Chloride Lvl) 105 95-109 [facility] HospitalBmicgkdPPFFLRNHXIWW7356-40-40 10:03:00 Test Item Value Reference Range Interpretation Comments CO2 (test code = CO2) 25 -32 [facility]2017-08-04 23:45:00 Test Item Value Reference Range Interpretation Comments eGFR (test code = eGFR) 68 [facility]2017-08-04 23:45:00 Test Item Value Reference Range Interpretation Comments AGAP (test code = AGAP) 13.8 10.0-20.0 [facility]2017-08-04 23:45:00 Test Item Value Reference Range Interpretation Comments Calcium Lvl (test code = Calcium Lvl) 9.0 8.5-10.5 [facility]2017-08-04 23:45:00 Test Item Value Reference Range Interpretation Comments CO2 (test code = CO2) 26 - [facility]2017-08-04 23:45:00 Test Item Value Reference Range Interpretation Comments Chloride Lvl (test code = Chloride Lvl) 104 95-109 [facility]2017-08-04 23:45:00 Test Item Value Reference Range Interpretation Comments Potassium Lvl (test code = Potassium 3.8 3.5-5.1 Lvl) [facility]2017-08-04 23:45:00 Test Item Value Reference Range Interpretation Comments Sodium Lvl (test code = Sodium Lvl) 140 135-145 [facility]2017-08-04 23:45:00 Test Item Value Reference Range Interpretation Comments Creatinine Lvl (test code = Creatinine 1.07 0.50-1.40 Lvl) [facility]2017-08-04 23:45:00 Test Item Value Reference Range Interpretation Comments BUN (test code = BUN) 13 7-22 [facility]2017-08-04 23:45:00 Test Item Value Reference Range Interpretation Comments Glucose Lvl (test code = Glucose Lvl) 146 70-99 [facility]2017-08-04 23:45:00 Test Item Value Reference Range Interpretation Comments Chloride Lvl (test code = Chloride Lvl) 104 95-109 [facility]2017-08-04 23:45:00 Test Item Value Reference Range Interpretation Comments Potassium Lvl (test code = Potassium 3.8 3.5-5.1 Lvl) [facility]2017-08-04 23:45:00 Test Item Value Reference Range Interpretation Comments Sodium Lvl (test code = Sodium Lvl) 140 135-145 [facility]2017-08-04 23:45:00 Test Item Value Reference Range Interpretation Comments Creatinine Lvl (test code = Creatinine 1.07 0.50-1.40 Lvl) [facility]2017-08-04 23:45:00 Test Item Value Reference Range Interpretation Comments BUN (test code = BUN) 13 7-22 [facility]2017-08-04 23:45:00 Test Item Value Reference Range Interpretation Comments Glucose Lvl (test code = Glucose Lvl) 146 70-99 [facility]2017-08-04 23:45:00 Test Item Value Reference Range Interpretation Comments eGFR (test code = eGFR) 68 [facility]2017-08-04 23:45:00 Test Item Value Reference Range Interpretation Comments AGAP (test code = AGAP) 13.8 10.0-20.0 [facility]2017-08-04 23:45:00 Test Item Value Reference Range Interpretation Comments Calcium Lvl (test code = Calcium Lvl) 9.0 8.5-10.5 [facility]2017-08-04 23:45:00 Test Item Value Reference Range Interpretation Comments CO2 (test code = CO2) [facility]2017-08-04 23:45:00 Test Item Value Reference Range Interpretation Comments eGFR (test code = eGFR) 68 [facility]2017-08-04 23:45:00 Test Item Value Reference Range Interpretation Comments AGAP (test code = AGAP) 13.8 10.0-20.0 [facility]2017-08-04 23:45:00 Test Item Value Reference Range Interpretation Comments Calcium Lvl (test code = Calcium Lvl) 9.0 8.5-10.5 [facility]2017-08-04 23:45:00 Test Item Value Reference Range Interpretation Comments CO2 (test code = CO2) 32 [facility]2017-08-04 23:45:00 Test Item Value Reference Range Interpretation Comments Chloride Lvl (test code = Chloride Lvl) 104 95-109 [facility]2017-08-04 23:45:00 Test Item Value Reference Range Interpretation Comments Potassium Lvl (test code = Potassium 3.8 3.5-5.1 Lvl) [facility]2017-08-04 23:45:00 Test Item Value Reference Range Interpretation Comments Sodium Lvl (test code = Sodium Lvl) 140 135-145 [facility]2017-08-04 23:45:00 Test Item Value Reference Range Interpretation Comments Creatinine Lvl (test code = Creatinine 1.07 0.50-1.40 Lvl) [facility]2017-08-04 23:45:00 Test Item Value Reference Range Interpretation Comments BUN (test code = BUN) 13 7-22 [facility]2017-08-04 23:45:00 Test Item Value Reference Range Interpretation Comments Glucose Lvl (test code = Glucose Lvl) 146 70-99 [facility]2017-08-04 23:45:00 Test Item Value Reference Range Interpretation Comments eGFR (test code = eGFR) 68 [facility]2017-08-04 23:45:00 Test Item Value Reference Range Interpretation Comments AGAP (test code = AGAP) 13.8 10.0-20.0 [facility]2017-08-04 23:45:00 Test Item Value Reference Range Interpretation Comments Calcium Lvl (test code = Calcium Lvl) 9.0 8.5-10.5 [facility]2017-08-04 23:45:00 Test Item Value Reference Range Interpretation Comments CO2 (test code = CO2) 26 24-32 [facility]2017-08-04 23:45:00 Test Item Value Reference Range Interpretation Comments Chloride Lvl (test code = Chloride Lvl) 104 95-109 [facility]2017-08-04 23:45:00 Test Item Value Reference Range Interpretation Comments Potassium Lvl (test code = Potassium 3.8 3.5-5.1 Lvl) [facility]2017-08-04 23:45:00 Test Item Value Reference Range Interpretation Comments Sodium Lvl (test code = Sodium Lvl) 140 135-145 [facility]2017-08-04 23:45:00 Test Item Value Reference Range Interpretation Comments Creatinine Lvl (test code = Creatinine 1.07 0.50-1.40 Lvl) [facility]2017-08-04 23:45:00 Test Item Value Reference Range Interpretation Comments BUN (test code = BUN) 13 08-29 [facility]2017-08-04 23:45:00 Test Item Value Reference Range Interpretation Comments Glucose Lvl (test code = Glucose Lvl) 146 70-99 [facility]2017-08-04 23:45:00 Test Item Value Reference Range Interpretation Comments eGFR (test code = eGFR) 68 [facility]2017-08-04 23:45:00 Test Item Value Reference Range Interpretation Comments AGAP (test code = AGAP) 13.8 10.0-20.0 [facility]2017-08-04 23:45:00 Test Item Value Reference Range Interpretation Comments Calcium Lvl (test code = Calcium Lvl) 9.0 8.5-10.5 [facility]2017-08-04 23:45:00 Test Item Value Reference Range Interpretation Comments CO2 (test code = CO2) 26 24-32 [facility]2017-08-04 23:45:00 Test Item Value Reference Range Interpretation Comments Chloride Lvl (test code = Chloride Lvl) 104 95-109 [facility]2017-08-04 23:45:00 Test Item Value Reference Range Interpretation Comments Potassium Lvl (test code = Potassium 3.8 3.5-5.1 Lvl) [facility]2017-08-04 23:45:00 Test Item Value Reference Range Interpretation Comments Sodium Lvl (test code = Sodium Lvl) 140 135-145 [facility]2017-08-04 23:45:00 Test Item Value Reference Range Interpretation Comments Creatinine Lvl (test code = Creatinine 1.07 0.50-1.40 Lvl) [facility]2017-08-04 23:45:00 Test Item Value Reference Range Interpretation Comments BUN (test code = BUN) 13 08-29 [facility]2017-08-04 23:45:00 Test Item Value Reference Range Interpretation Comments Glucose Lvl (test code = Glucose Lvl) 146 70-99 [facility]2017-08-04 23:45:00 Test Item Value Reference Range Interpretation Comments eGFR (test code = eGFR) 68 [facility]2017-08-04 23:45:00 Test Item Value Reference Range Interpretation Comments AGAP (test code = AGAP) 13.8 10.0-20.0 [facility]ennialDaily Interactive NetworksCATAWBA VALLEY MEDICAL [id number] 23:45:00 Test Item Value Reference Range Interpretation Comments Calcium Lvl (test code = Calcium Lvl) 9.0 8.5-10.5 [facility]ennial[facility]ist[facility] [id number] 23:45:00 Test Item Value Reference Range Interpretation Comments CO2 (test code = CO2) - [facility] [id number] 23:45:00 Test Item Value Reference Range Interpretation Comments Chloride Lvl (test code = Chloride Lvl) 104 95-109 [facility] [employer] [id number] 23:45:00 Test Item Value Reference Range Interpretation Comments Potassium Lvl (test code = Potassium 3.8 3.5-5.1 Lvl) [facility] [id number] 23:45:00 Test Item Value Reference Range Interpretation Comments Sodium Lvl (test code = Sodium Lvl) 140 135-145 [facility] [id number] 23:45:00 Test Item Value Reference Range Interpretation Comments Creatinine Lvl (test code = Creatinine 1.07 0.50-1.40 Lvl) [facility] [id number] 23:45:00 Test Item Value Reference Range Interpretation Comments BUN (test code = BUN) 13 7-22 [facility] [id number] 23:45:00 Test Item Value Reference Range Interpretation Comments Glucose Lvl (test code = Glucose Lvl) 146 70-99 [facility] [id number] 23:45:00 Test Item Value Reference Range Interpretation Comments eGFR (test code = eGFR) 68 [facility] [id number] 23:45:00 Test Item Value Reference Range Interpretation Comments AGAP (test code = AGAP) 13.8 10.0-20.0 [facility] [id number] 23:45:00 Test Item Value Reference Range Interpretation Comments Calcium Lvl (test code = Calcium Lvl) 9.0 8.5-10.5 [facility] [id number] 23:45:00 Test Item Value Reference Range Interpretation Comments CO2 (test code = CO2) 24-32 [facility]2017-08-04 23:45:00 Test Item Value Reference Range Interpretation Comments Chloride Lvl (test code = Chloride Lvl) 104 95-109 [facility]2017-08-04 23:45:00 Test Item Value Reference Range Interpretation Comments Potassium Lvl (test code = Potassium 3.8 3.5-5.1 Lvl) [facility]2017-08-04 23:45:00 Test Item Value Reference Range Interpretation Comments Sodium Lvl (test code = Sodium Lvl) 140 135-145 [facility]2017-08-04 23:45:00 Test Item Value Reference Range Interpretation Comments Creatinine Lvl (test code = Creatinine 1.07 0.50-1.40 Lvl) [facility]2017-08-04 23:45:00 Test Item Value Reference Range Interpretation Comments BUN (test code = BUN) 13 7-22 [facility]2017-08-04 23:45:00 Test Item Value Reference Range Interpretation Comments Glucose Lvl (test code = Glucose Lvl) 146 70-99 [facility] HospitalLmlpqlsHOZEWARBHX2525-32-87 16:12:00 Test Item Value Reference Range Interpretation Comments INR (test code = INR) 1.32 0.85-1.17 [facility] HospitalEgrbxktMHCQJIXVOO9280-98-48 16:12:00 Test Item Value Reference Range Interpretation Comments PTT (test code = PTT) 43.0 s 22.9-35.8 [facility] HospitalNsiojubQRXYWCAQCE5310-32-29 16:12:00 Test Item Value Reference Range Interpretation Comments Monocytes # (test code 1.6 See_Comment [Aut omated message] The = Monocytes #) system which generated this result tra nsmitted reference range : <=0.8. The reference r gianfranco was not used to int erpret this result as normal/abnormal . [facility] HospitalHcgmxulRAYYAULVAD2729-80-31 16:12:00 Test Item Value Reference Range Interpretation Comments Eosinophils # (test code 0.3 See_Comment [A utomated message] The = Eosinophils #) system whic h generated this result tra nsmitted reference range : <=0.5. The reference r gianfranco was not used to int erpret this result as normal/abnormal . [facility] HospitalTraoidyBNHOFQYJJC5052-82-10 16:12:00 Test Item Value Reference Range Interpretation Comments Lymphocytes # (test code = Lymphocytes 1.7 1.0-5.5 #) [facility] IjrkfypJCUNSWWVVB9345-57-67 16:12:00 Test Item Value Reference Range Interpretation Comments Basophils (test code = 0.5 See_Comment [Aut omated message] The Basophils) system which ge nerated this result tra nsmitted reference range : <=1.0. The reference r gianfranco was not used to int erpret this result as normal/abnormal . [facility]ennialAxzsmbtWVDYVOUBJX8456-79-33 16:12:00 Test Item Value Reference Range Interpretation Comments Segs-Bands # (test code = Segs-Bands #) 4.5 1.5-8.1 [facility] ByntzksCMOVDJKYSU2419-18-46 16:12:00 Test Item Value Reference Range Interpretation Comments Eosinophils (test code = 3.4 See_Comment [A utomated message] The Eosinophils) system which ge nerated this result tra nsmitted reference range : <=4.0. The reference r gianfranco was not used to int erpret this result as normal/abnormal . [facility] CentennialYwfffdjPAVLPGVYIP3818-05-84 16:12:00 Test Item Value Reference Range Interpretation Comments Segs (test code = Segs) 55.3 45.0-75.0 [facility] JpuaemvEAJMMGHBTV5903-13-75 16:12:00 Test Item Value Reference Range Interpretation Comments Lymphocytes (test code = Lymphocytes) 21.2 20.0-40.0 [facility] CentennialVexmwecWGLLRNJIRH1330-62-45 16:12:00 Test Item Value Reference Range Interpretation Comments Monocytes (test code = Monocytes) 19.6 2.0-12.0 [facility] [employer] NYCPWNF0435-30-34 16:12:00 Test Item Value Reference Range Interpretation Comments ABO/Rh (test code = ABO/Rh) O POS [facility] [employer] FWOZQYL7538-55-25 16:12:00 Test Item Value Reference Range Interpretation Comments Antibody Scrn (test Negative (09/11/16 11:12 code = Antibody Scrn) AM) [facility] [employer] [id number] 16:12:00 Test Item Value Reference Range Interpretation Comments Phosphorus (test code = Phosphorus) 3.3 2.5-4.5 [facility] [employer] ZSCQS1079-09-27 16:12:00 Test Item Value Reference Range Interpretation Comments Magnesium Lvl (test code = Magnesium 1.6 1.8-2.4 Lvl) [facility]zzuygePZTSPEAUGZSB3486-58-74 16:12:00 Test Item Value Reference Range Interpretation Comments AGAP (test code = AGAP) 9.7 10.0-20.0 [facility] HospitalZlxppuyUCOZBAELIENF1362-24-85 16:12:00 Test Item Value Reference Range Interpretation Comments eGFR (test code = eGFR) 69 [facility] HospitalOjatrdlPTQFQOPILTAN8809-84-67 16:12:00 Test Item Value Reference Range Interpretation Comments CO2 (test code = CO2) 28 24-32 [facility] HospitalKskpkkwFTNKACTWJMHG4659-20-82 16:12:00 Test Item Value Reference Range Interpretation Comments Chloride Lvl (test code = Chloride Lvl) 102 95-109 [facility] HospitalOydhebfLYWKKGWBHJOR0708-13-85 16:12:00 Test Item Value Reference Range Interpretation Comments Potassium Lvl (test code = Potassium 3.7 3.5-5.1 Lvl) [facility] HospitalLcqniqxMYBJOBAQWVOK0047-01-06 16:12:00 Test Item Value Reference Range Interpretation Comments Calcium Lvl (test code = Calcium Lvl) 8.9 8.5-10.5 [facility] HospitalOvdvlheNPYONWMROFKP1761-53-64 16:12:00 Test Item Value Reference Range Interpretation Comments Sodium Lvl (test code = Sodium Lvl) 136 135-145 [facility] HospitalTbuchkjSEXZEBOZOZBZ4714-00-24 16:12:00 Test Item Value Reference Range Interpretation Comments Creatinine Lvl (test code = Creatinine 1.06 0.50-1.40 Lvl) [facility] HospitalGezjxxzVKWNTLZCOQUX9387-22-13 16:12:00 Test Item Value Reference Range Interpretation Comments BUN (test code = BUN) 15 7-22 [facility] HospitalEwqblpyGFTYRTQAQDJV1922-17-83 16:12:00 Test Item Value Reference Range Interpretation Comments Glucose Lvl (test code = Glucose Lvl) 87 70-99 [facility] HospitalJzkjjqmHTXSHDRTCU6626-20-66 16:12:00 Test Item Value Reference Range Interpretation Comments Hct (test code = Hct) 33.1 42.0-54.0 [facility] HospitalFkvcsbeWKKZGINQIM4899-89-45 16:12:00 Test Item Value Reference Range Interpretation Comments Platelet (test code = Platelet) 188 133-450 [facility] HospitalSqqqrvxTHCBCBAXAA4137-72-86 16:12:00 Test Item Value Reference Range Interpretation Comments Hgb (test code = Hgb) 11.0 14.0-18.0 [facility] HospitalJdnicluKPGVVWZMWI9266-42-41 16:12:00 Test Item Value Reference Range Interpretation Comments MPV (test code = MPV) 7.5 7.4-10.4 [facility] HospitalJcuocjeVUYEPROLEV6185-08-22 16:12:00 Test Item Value Reference Range Interpretation Comments MCV (test code = MCV) 89.2 80.0-94.0 [facility] HospitalGaplkxrCAVWEVXBAB7236-32-76 16:12:00 Test Item Value Reference Range Interpretation Comments MCH (test code = MCH) 29.5 pg 27.0-31.0 [facility] HospitalDixpdckUFPPYJWWNZ7653-26-92 16:12:00 Test Item Value Reference Range Interpretation Comments RBC (test code = RBC) 3.72 4.70-6.10 [facility] HospitalFwwluvpMGZFOIPGTG0728-18-53 16:12:00 Test Item Value Reference Range Interpretation Comments RDW (test code = RDW) 14.7 11.5-14.5 [facility] HospitalVdiihcnSKADXLGVYK8558-58-94 16:12:00 Test Item Value Reference Range Interpretation Comments WBC (test code = WBC) 8.2 3.7-10.4 [facility] HospitalWcloliiTEKEJYCXSM7052-88-49 16:12:00 Test Item Value Reference Range Interpretation Comments MCHC (test code = MCHC) 33.1 32.0-36.0 [facility] HospitalRnwvvnoHYTSWEXYDH9624-79-40 16:12:00 Test Item Value Reference Range Interpretation Comments PT (test code = PT) 16.6 s 12.0-14.7 [facility] HospitalIdpxsdnWMCJYLZEIN0250-96-58 16:12:00 Test Item Value Reference Range Interpretation Comments INR (test code = INR) 1.32 0.85-1.17 [facility] HospitalOtaquexPFDDMPHRGP7067-43-33 16:12:00 Test Item Value Reference Range Interpretation Comments PTT (test code = PTT) 43.0 s 22.9-35.8 [facility] HospitalGubbnveJHHJKWPTYM7623-49-61 16:12:00 Test Item Value Reference Range Interpretation Comments Monocytes # (test code 1.6 See_Comment [Aut omated message] The = Monocytes #) system which generated this result tra nsmitted reference range : <=0.8. The reference r gianfranco was not used to int erpret this result as normal/abnormal . [facility] HospitalZldteehSKMLFLJPVB8099-12-09 16:12:00 Test Item Value Reference Range Interpretation Comments Eosinophils # (test code 0.3 See_Comment [A utomated message] The = Eosinophils #) system whic h generated this result tra nsmitted reference range : <=0.5. The reference r gianfranco was not used to int erpret this result as normal/abnormal . [facility] HospitalSdosgilXCZDKMSMQU5132-62-98 16:12:00 Test Item Value Reference Range Interpretation Comments Lymphocytes # (test code = Lymphocytes 1.7 1.0-5.5 #) [facility] HospitalHzelmklFSSSDDLYLC3110-88-34 16:12:00 Test Item Value Reference Range Interpretation Comments Basophils (test code = 0.5 See_Comment [Aut omated message] The Basophils) system which ge nerated this result tra nsmitted reference range : <=1.0. The reference r gianfranco was not used to int erpret this result as normal/abnormal . [facility] HospitalPrfnjhyTOSDRKACLD4711-39-54 16:12:00 Test Item Value Reference Range Interpretation Comments Segs-Bands # (test code = Segs-Bands #) 4.5 1.5-8.1 [facility] HospitalXnkxcgqZPJMOANURC7774-23-09 16:12:00 Test Item Value Reference Range Interpretation Comments Eosinophils (test code = 3.4 See_Comment [A utomated message] The Eosinophils) system which ge nerated this result tra nsmitted reference range : <=4.0. The reference r gianfranco was not used to int erpret this result as normal/abnormal . [facility] HospitalTxsordvXPSGPKVUZF8242-20-60 16:12:00 Test Item Value Reference Range Interpretation Comments Segs (test code = Segs) 55.3 45.0-75.0 [facility] HospitalAmnmlnwHBOGAJVXVQ9716-16-45 16:12:00 Test Item Value Reference Range Interpretation Comments Lymphocytes (test code = Lymphocytes) 21.2 20.0-40.0 [facility] HospitalRznhtlcZYNFXZHTCY0100-60-76 16:12:00 Test Item Value Reference Range Interpretation Comments Monocytes (test code = Monocytes) 19.6 2.0-12.0 [facility] VIPMQFV0353-24-57 16:12:00 Test Item Value Reference Range Interpretation Comments ABO/Rh (test code = ABO/Rh) O [facility] TEYWKBK6431-71-39 16:12:00 Test Item Value Reference Range Interpretation Comments Antibody Scrn (test Negative (09/11/16 11:12 code = Antibody Scrn) AM) [facility] EYWPX7147-31-20 16:12:00 Test Item Value Reference Range Interpretation Comments Phosphorus (test code = Phosphorus) 3.3 2.5-4.5 [facility] [id number] 16:12:00 Test Item Value Reference Range Interpretation Comments Magnesium Lvl (test code = Magnesium 1.6 1.8-2.4 Lvl) [facility] HospitalLykxflbENJXOYIKYNZY5823-41-06 16:12:00 Test Item Value Reference Range Interpretation Comments AGAP (test code = AGAP) 9.7 10.0-20.0 [facility] HospitalUrbboeaQYWLINGZNPEQ0199-36-29 16:12:00 Test Item Value Reference Range Interpretation Comments eGFR (test code = eGFR) 69 [facility] HospitalDihqcnrTZSRWPHKVEYG7861-04-70 16:12:00 Test Item Value Reference Range Interpretation Comments CO2 (test code = CO2) 28 24-32 [facility] HospitalLkhjozbCWMGSJMGEGXU8332-44-59 16:12:00 Test Item Value Reference Range Interpretation Comments Chloride Lvl (test code = Chloride Lvl) 102 95-109 [facility] HospitalMdtykdzWIVDDHBYYJMG0139-19-87 16:12:00 Test Item Value Reference Range Interpretation Comments Potassium Lvl (test code = Potassium 3.7 3.5-5.1 Lvl) [facility] HospitalIxsgkfvHKHBTPGZOMFF9619-11-77 16:12:00 Test Item Value Reference Range Interpretation Comments Calcium Lvl (test code = Calcium Lvl) 8.9 8.5-10.5 [facility] HospitalXhkwyizOWINEOENNKBE7471-13-29 16:12:00 Test Item Value Reference Range Interpretation Comments Sodium Lvl (test code = Sodium Lvl) 136 135-145 [facility] HospitalXbrbuoqSTRKCIUTEVPO0381-91-99 16:12:00 Test Item Value Reference Range Interpretation Comments Creatinine Lvl (test code = Creatinine 1.06 0.50-1.40 Lvl) [facility] HospitalQdbsjeqLOXLIZIIOGPJ4620-48-43 16:12:00 Test Item Value Reference Range Interpretation Comments BUN (test code = BUN) 15 7-22 [facility]ennialYmfzkacUYMBPISLMYXG0142-07-09 16:12:00 Test Item Value Reference Range Interpretation Comments Glucose Lvl (test code = Glucose Lvl) 87 70-99 [facility]RfltrkvKAIBIHBHCG3908-99-43 16:12:00 Test Item Value Reference Range Interpretation Comments Hct (test code = Hct) 33.1 42.0-54.0 [facility] HospitalTnxtjfoLSIMSBZLMP3937-85-24 16:12:00 Test Item Value Reference Range Interpretation Comments Platelet (test code = Platelet) 188 133-450 [facility] HospitalIpnfvvqMPEWOGGAKZ9677-61-08 16:12:00 Test Item Value Reference Range Interpretation Comments Hgb (test code = Hgb) 11.0 14.0-18.0 [facility] HospitalDxhqkbaTYXYEOGWVF1518-36-61 16:12:00 Test Item Value Reference Range Interpretation Comments MPV (test code = MPV) 7.5 7.4-10.4 [facility] HospitalAapvbitHVREUFCYJZ9160-24-74 16:12:00 Test Item Value Reference Range Interpretation Comments MCV (test code = MCV) 89.2 80.0-94.0 [facility] HospitalRcxfcrpILFXACVMWN7335-10-55 16:12:00 Test Item Value Reference Range Interpretation Comments MCH (test code = MCH) 29.5 pg 27.0-31.0 [facility] HospitalWeobyhrMGSWOCVZMZ0342-35-62 16:12:00 Test Item Value Reference Range Interpretation Comments RBC (test code = RBC) 3.72 4.70-6.10 [facility] HospitalQxjospmSLJIRABKET1352-62-31 16:12:00 Test Item Value Reference Range Interpretation Comments RDW (test code = RDW) 14.7 11.5-14.5 [facility] HospitalZiakxcmWATPHAEJOP0592-67-07 16:12:00 Test Item Value Reference Range Interpretation Comments WBC (test code = WBC) 8.2 3.7-10.4 [facility] HospitalVxijljyCMCMSPCYHD1427-23-47 16:12:00 Test Item Value Reference Range Interpretation Comments MCHC (test code = MCHC) 33.1 32.0-36.0 [facility] HospitalPtevshnJNGBMLLRFX6163-35-16 16:12:00 Test Item Value Reference Range Interpretation Comments PT (test code = PT) 16.6 s 12.0-14.7 [place] 106467-08-04 16:12:00 Test Item Value Reference Range Interpretation Comments INR (test code = INR) 1.32 0.85-1.17 [facility] HospitalEtkayfeWCQNQWNPJE7059-13-26 16:12:00 Test Item Value Reference Range Interpretation Comments PTT (test code = PTT) 43.0 s 22.9-35.8 [facility] HospitalVvsqerwDNCWKWWCTR8677-01-08 16:12:00 Test Item Value Reference Range Interpretation Comments Monocytes # (test code 1.6 See_Comment [Aut omated message] The = Monocytes #) system which generated this result tra nsmitted reference range : <=0.8. The reference r gianfranco was not used to int erpret this result as normal/abnormal . [facility] HospitalFdqeqigVHOTGRIECT5884-85-33 16:12:00 Test Item Value Reference Range Interpretation Comments Eosinophils # (test code 0.3 See_Comment [A utomated message] The = Eosinophils #) system whic h generated this result tra nsmitted reference range : <=0.5. The reference r gianfranco was not used to int erpret this result as normal/abnormal . [facility] HospitalPhtidbhILUVLFIMNS0387-21-97 16:12:00 Test Item Value Reference Range Interpretation Comments Lymphocytes # (test code = Lymphocytes 1.7 1.0-5.5 #) [facility] HospitalJakpyiqJSPAEAGXJM6309-07-46 16:12:00 Test Item Value Reference Range Interpretation Comments Basophils (test code = 0.5 See_Comment [Aut omated message] The Basophils) system which ge nerated this result tra nsmitted reference range : <=1.0. The reference r gianfranco was not used to int erpret this result as normal/abnormal . [facility] HospitalPuntdmfPDCELYBJUE3008-81-94 16:12:00 Test Item Value Reference Range Interpretation Comments Segs-Bands # (test code = Segs-Bands #) 4.5 1.5-8.1 [facility] HospitalSkncghkIINSYXEANE1931-10-89 16:12:00 Test Item Value Reference Range Interpretation Comments Eosinophils (test code = 3.4 See_Comment [A utomated message] The Eosinophils) system which ge nerated this result tra nsmitted reference range : <=4.0. The reference r gianfranco was not used to int erpret this result as normal/abnormal . [facility] HospitalJgvnuqrUCBDPASGBW7581-38-55 16:12:00 Test Item Value Reference Range Interpretation Comments Segs (test code = Segs) 55.3 45.0-75.0 [facility] HospitalWzxwliiXHHTLNNLVA5027-25-32 16:12:00 Test Item Value Reference Range Interpretation Comments Lymphocytes (test code = Lymphocytes) 21.2 20.0-40.0 [facility] HospitalJsxujthNRXWJZAUNB7935-73-54 16:12:00 Test Item Value Reference Range Interpretation Comments Monocytes (test code = Monocytes) 19.6 2.0-12.0 [facility] [place] LSAPHCA4524-59-12 16:12:00 Test Item Value Reference Range Interpretation Comments ABO/Rh (test code = ABO/Rh) O POS [facility]ennial[facility] SUMDOLS6943-10-18 16:12:00 Test Item Value Reference Range Interpretation Comments Antibody Scrn (test Negative (09/11/16 11:12 code = Antibody Scrn) AM) [facility] [employer] [employer] UZPUQ5970-30-63 16:12:00 Test Item Value Reference Range Interpretation Comments Phosphorus (test code = Phosphorus) 3.3 2.5-4.5 [facility]ennial[facility] REBKB9082-29-79 16:12:00 Test Item Value Reference Range Interpretation Comments Magnesium Lvl (test code = Magnesium 1.6 1.8-2.4 Lvl) [facility] CentennialWpibuodPYEBWKSRQWPG0267-10-12 16:12:00 Test Item Value Reference Range Interpretation Comments AGAP (test code = AGAP) 9.7 10.0-20.0 [facility] CentennialCarlakzJDERVYAZOZXP5938-95-90 16:12:00 Test Item Value Reference Range Interpretation Comments eGFR (test code = eGFR) 69 [facility] CentennialUdvqonmBQARIOQDRQTC3480-83-03 16:12:00 Test Item Value Reference Range Interpretation Comments CO2 (test code = CO2) 28 24-32 [facility] CentennialHzslvrxZNDJKFDWYHOP4585-57-53 16:12:00 Test Item Value Reference Range Interpretation Comments Chloride Lvl (test code = Chloride Lvl) 102 95-109 [facility]JfprldqNKRNGTZDEUYR7231-79-76 16:12:00 Test Item Value Reference Range Interpretation Comments Potassium Lvl (test code = Potassium 3.7 3.5-5.1 Lvl) [facility] HospitalDwnijffHJPREBFAJIOQ9852-44-58 16:12:00 Test Item Value Reference Range Interpretation Comments Calcium Lvl (test code = Calcium Lvl) 8.9 8.5-10.5 [facility] HospitalDadzyvvOYIQPCWWDDUS2757-94-41 16:12:00 Test Item Value Reference Range Interpretation Comments Sodium Lvl (test code = Sodium Lvl) 136 135-145 [facility]PgyjjrrBMUCXUVMTDWA1899-41-14 16:12:00 Test Item Value Reference Range Interpretation Comments Creatinine Lvl (test code = Creatinine 1.06 0.50-1.40 Lvl) [facility] HospitalHtydzaxUERTYNNLZJJY6910-95-24 16:12:00 Test Item Value Reference Range Interpretation Comments BUN (test code = BUN) 15 7-22 [facility] HospitalDqytfedZYORFSPEOVUH1937-66-28 16:12:00 Test Item Value Reference Range Interpretation Comments Glucose Lvl (test code = Glucose Lvl) 87 70-99 [facility] HospitalHsdailfEMAUUSWBCK1820-64-22 16:12:00 Test Item Value Reference Range Interpretation Comments Hct (test code = Hct) 33.1 42.0-54.0 [facility] HospitalUfvtksiCXVGTFPILD2465-08-73 16:12:00 Test Item Value Reference Range Interpretation Comments Platelet (test code = Platelet) 188 133-450 [facility] HospitalWqephgmHLOLLSWKNZ8784-99-29 16:12:00 Test Item Value Reference Range Interpretation Comments Hgb (test code = Hgb) 11.0 14.0-18.0 [facility] HospitalDvaawznCSQVHEIFVC1371-09-46 16:12:00 Test Item Value Reference Range Interpretation Comments MPV (test code = MPV) 7.5 7.4-10.4 [facility] HospitalNudbitbJZVJROGLTI2932-28-76 16:12:00 Test Item Value Reference Range Interpretation Comments MCV (test code = MCV) 89.2 80.0-94.0 [facility] HospitalBzxagivTOABLKRRXS7511-59-58 16:12:00 Test Item Value Reference Range Interpretation Comments MCH (test code = MCH) 29.5 pg 27.0-31.0 [facility] HospitalQlphaetAGQIUKBGLD5596-70-05 16:12:00 Test Item Value Reference Range Interpretation Comments RBC (test code = RBC) 3.72 4.70-6.10 [facility] HospitalQlymebqRUNETXDPQR0300-35-64 16:12:00 Test Item Value Reference Range Interpretation Comments RDW (test code = RDW) 14.7 11.5-14.5 [facility] HospitalTnarvcyRFGKTTLERT8877-55-71 16:12:00 Test Item Value Reference Range Interpretation Comments WBC (test code = WBC) 8.2 3.7-10.4 [facility] HospitalWogkvheVEEGMTKRRX0565-83-13 16:12:00 Test Item Value Reference Range Interpretation Comments MCHC (test code = MCHC) 33.1 32.0-36.0 [facility] HospitalDtdkqckZMEPKMGTSH0332-85-81 16:12:00 Test Item Value Reference Range Interpretation Comments PT (test code = PT) 16.6 s 12.0-14.7 [facility] HospitalUhotdszUABQFMESAJ0686-46-06 16:12:00 Test Item Value Reference Range Interpretation Comments INR (test code = INR) 1.32 0.85-1.17 [facility] HospitalXounkbxVZFFTLIALO0094-54-43 16:12:00 Test Item Value Reference Range Interpretation Comments PTT (test code = PTT) 43.0 s 22.9-35.8 [facility] HospitalLoakntqVOKWFEOUAH2600-22-39 16:12:00 Test Item Value Reference Range Interpretation Comments Monocytes # (test code 1.6 See_Comment [Aut omated message] The = Monocytes #) system which generated this result tra nsmitted reference range : <=0.8. The reference r gianfranco was not used to int erpret this result as normal/abnormal . [facility] HospitalJpgirjjASYUMCHIPS1084-23-70 16:12:00 Test Item Value Reference Range Interpretation Comments Eosinophils # (test code 0.3 See_Comment [A utomated message] The = Eosinophils #) system whic h generated this result tra nsmitted reference range : <=0.5. The reference r gianfranco was not used to int erpret this result as normal/abnormal . [facility] HospitalRezcycePYUFECPXQT7959-06-73 16:12:00 Test Item Value Reference Range Interpretation Comments Lymphocytes # (test code = Lymphocytes 1.7 1.0-5.5 #) [facility] HospitalEopowwtGAVDUFUIYO2121-71-63 16:12:00 Test Item Value Reference Range Interpretation Comments Basophils (test code = 0.5 See_Comment [Aut omated message] The Basophils) system which ge nerated this result tra nsmitted reference range : <=1.0. The reference r gianfranco was not used to int erpret this result as normal/abnormal . [place] 106467-08-04 16:12:00 Test Item Value Reference Range Interpretation Comments Segs-Bands # (test code = Segs-Bands #) 4.5 1.5-8.1 [facility] CentennialIfxvqtlBYJXUZGRJF8052-70-89 16:12:00 Test Item Value Reference Range Interpretation Comments Eosinophils (test code = 3.4 See_Comment [A utomated message] The Eosinophils) system which ge nerated this result tra nsmitted reference range : <=4.0. The reference r gianfranco was not used to int erpret this result as normal/abnormal . [facility] NzjgobcBNVWJFGBOJ1558-31-71 16:12:00 Test Item Value Reference Range Interpretation Comments Segs (test code = Segs) 55.3 45.0-75.0 [facility] CentennialWmjxoljIXEOMFLCDI9111-88-04 16:12:00 Test Item Value Reference Range Interpretation Comments Lymphocytes (test code = Lymphocytes) 21.2 20.0-40.0 [facility] CentennialHqfxfnzCOBIWFMLMR4569-55-16 16:12:00 Test Item Value Reference Range Interpretation Comments Monocytes (test code = Monocytes) 19.6 2.0-12.0 [facility] [employer] ZOMVYKQ5228-49-28 16:12:00 Test Item Value Reference Range Interpretation Comments ABO/Rh (test code = ABO/Rh) O POS [facility] [employer] YUXIEFX9684-64-12 16:12:00 Test Item Value Reference Range Interpretation Comments Antibody Scrn (test Negative (09/11/16 11:12 code = Antibody Scrn) AM) [facility] [employer] [id number] 16:12:00 Test Item Value Reference Range Interpretation Comments Phosphorus (test code = Phosphorus) 3.3 2.5-4.5 [facility] [employer] EGJGY2411-97-70 16:12:00 Test Item Value Reference Range Interpretation Comments Magnesium Lvl (test code = Magnesium 1.6 1.8-2.4 Lvl) [facility] CentennialTypzxrdDLBOSHZFEAUZ2820-27-44 16:12:00 Test Item Value Reference Range Interpretation Comments AGAP (test code = AGAP) 9.7 10.0-20.0 [facility] CentennialDyoezifPOKOPDYOFKMV3200-76-85 16:12:00 Test Item Value Reference Range Interpretation Comments eGFR (test code = eGFR) 69 [facility]fiqKEKROFHBVUJZ0012-97-37 16:12:00 Test Item Value Reference Range Interpretation Comments CO2 (test code = CO2) 28 24-32 [facility]QhdcjtjMASSHNZVRZTZ8497-35-35 16:12:00 Test Item Value Reference Range Interpretation Comments Chloride Lvl (test code = Chloride Lvl) 102 95-109 [facility] HospitalXjbigfwFZKXBZYETFFS5686-79-20 16:12:00 Test Item Value Reference Range Interpretation Comments Potassium Lvl (test code = Potassium 3.7 3.5-5.1 Lvl) [facility] HospitalPlnfeqpBWMGDYUPXDHQ6147-60-59 16:12:00 Test Item Value Reference Range Interpretation Comments Calcium Lvl (test code = Calcium Lvl) 8.9 8.5-10.5 [facility] HospitalZjztjxxOBAJQUJYUXWR0402-78-86 16:12:00 Test Item Value Reference Range Interpretation Comments Sodium Lvl (test code = Sodium Lvl) 136 135-145 [facility] HospitalKbkklkuCIGTVHYDDFGT6399-23-56 16:12:00 Test Item Value Reference Range Interpretation Comments Creatinine Lvl (test code = Creatinine 1.06 0.50-1.40 Lvl) [facility] HospitalHkfesdrOUQJPZJAAGUM1656-83-63 16:12:00 Test Item Value Reference Range Interpretation Comments BUN (test code = BUN) 15 7-22 [facility] HospitalLwmbjkqCSOENHRMCYOO7506-54-31 16:12:00 Test Item Value Reference Range Interpretation Comments Glucose Lvl (test code = Glucose Lvl) 87 70-99 [facility] HospitalLoijgidBJXDWHDMNN3094-90-74 16:12:00 Test Item Value Reference Range Interpretation Comments Hct (test code = Hct) 33.1 42.0-54.0 [facility] HospitalWmwlmfeFJKNFUOSXZ9609-70-22 16:12:00 Test Item Value Reference Range Interpretation Comments Platelet (test code = Platelet) 188 133-450 [facility] HospitalZshaztzBZHPJVXRRD9021-86-54 16:12:00 Test Item Value Reference Range Interpretation Comments Hgb (test code = Hgb) 11.0 14.0-18.0 [facility] HospitalVrvhgwmOXQDFNURJK4409-58-57 16:12:00 Test Item Value Reference Range Interpretation Comments MPV (test code = MPV) 7.5 7.4-10.4 [facility] HospitalDybnzqlKXFANOTWNA6681-95-23 16:12:00 Test Item Value Reference Range Interpretation Comments MCV (test code = MCV) 89.2 80.0-94.0 [facility] HospitalEcijcoeZKUNOKGOYN8511-64-84 16:12:00 Test Item Value Reference Range Interpretation Comments MCH (test code = MCH) 29.5 pg 27.0-31.0 [facility] HospitalDzskrvqVXQQNBVHRH2466-65-28 16:12:00 Test Item Value Reference Range Interpretation Comments RBC (test code = RBC) 3.72 4.70-6.10 [facility] HospitalVhoxvefOKXGODCQGM0371-11-19 16:12:00 Test Item Value Reference Range Interpretation Comments RDW (test code = RDW) 14.7 11.5-14.5 [facility] HospitalJlpcfdgRUMRWQAGZM7240-43-74 16:12:00 Test Item Value Reference Range Interpretation Comments WBC (test code = WBC) 8.2 3.7-10.4 [facility] HospitalPiuzbukANDOVRMJYX4895-77-00 16:12:00 Test Item Value Reference Range Interpretation Comments MCHC (test code = MCHC) 33.1 32.0-36.0 [facility] HospitalTdmozwaVNILROEEHB1376-83-87 16:12:00 Test Item Value Reference Range Interpretation Comments PT (test code = PT) 16.6 s 12.0-14.7 [facility] HospitalLksdwttJNECWTVRRI0788-51-55 16:12:00 Test Item Value Reference Range Interpretation Comments INR (test code = INR) 1.32 0.85-1.17 [facility] HospitalGgjriezSZFBPUWDEV5668-82-96 16:12:00 Test Item Value Reference Range Interpretation Comments PTT (test code = PTT) 43.0 s 22.9-35.8 [facility] HospitalLsyuznhIEFONFBRNU3946-77-97 16:12:00 Test Item Value Reference Range Interpretation Comments Monocytes # (test code 1.6 See_Comment [Aut omated message] The = Monocytes #) system which generated this result tra nsmitted reference range : <=0.8. The reference r gianfranco was not used to int erpret this result as normal/abnormal . [facility] HospitalAatfubaIVUJHNSHAI1980-37-04 16:12:00 Test Item Value Reference Range Interpretation Comments Eosinophils # (test code 0.3 See_Comment [A utomated message] The = Eosinophils #) system whic h generated this result tra nsmitted reference range : <=0.5. The reference r gianfranco was not used to int erpret this result as normal/abnormal . [facility] CenterJlmxeakLTDBFKTJAK1371-42-60 16:12:00 Test Item Value Reference Range Interpretation Comments Lymphocytes # (test code = Lymphocytes 1.7 1.0-5.5 #) [facility] HospitalDgpjwjhXXOWYHWOJJ7061-65-16 16:12:00 Test Item Value Reference Range Interpretation Comments Basophils (test code = 0.5 See_Comment [Aut omated message] The Basophils) system which ge nerated this result tra nsmitted reference range : <=1.0. The reference r gianfranco was not used to int erpret this result as normal/abnormal . [facility] CenterCmatjkwIZYOSVHEML9950-27-15 16:12:00 Test Item Value Reference Range Interpretation Comments Segs-Bands # (test code = Segs-Bands #) 4.5 1.5-8.1 [facility] HospitalBlhvazpZGVCNAYHGL5166-10-54 16:12:00 Test Item Value Reference Range Interpretation Comments Eosinophils (test code = 3.4 See_Comment [A utomated message] The Eosinophils) system which ge nerated this result tra nsmitted reference range : <=4.0. The reference r gianfranco was not used to int erpret this result as normal/abnormal . [facility] CentennialZyoezkaWAWJCIUBIM4433-21-23 16:12:00 Test Item Value Reference Range Interpretation Comments Segs (test code = Segs) 55.3 45.0-75.0 [facility] CenterRedqqxcCJFXIYBYHZ0754-27-86 16:12:00 Test Item Value Reference Range Interpretation Comments Lymphocytes (test code = Lymphocytes) 21.2 20.0-40.0 [facility] CentennialEykmmvmJQBFGWJNHR5427-86-22 16:12:00 Test Item Value Reference Range Interpretation Comments Monocytes (test code = Monocytes) 19.6 2.0-12.0 [facility] CentennialBuilt [place] YLKLKFL4089-11-89 16:12:00 Test Item Value Reference Range Interpretation Comments ABO/Rh (test code = ABO/Rh) O POS [facility] [employer] [id number] 16:12:00 Test Item Value Reference Range Interpretation Comments Antibody Scrn (test Negative (09/11/16 11:12 code = Antibody Scrn) AM) [facility] [employer] [id number] 16:12:00 Test Item Value Reference Range Interpretation Comments Phosphorus (test code = Phosphorus) 3.3 2.5-4.5 [facility] CenterCHEM [id number] 16:12:00 Test Item Value Reference Range Interpretation Comments Magnesium Lvl (test code = Magnesium 1.6 1.8-2.4 Lvl) [facility]DhroiulTFFBVTWQPNSR4358-77-20 16:12:00 Test Item Value Reference Range Interpretation Comments AGAP (test code = AGAP) 9.7 10.0-20.0 [facility] HospitalGgznbaaQURXHWKWMPMF4405-39-91 16:12:00 Test Item Value Reference Range Interpretation Comments eGFR (test code = eGFR) 69 [facility] HospitalKgsndasVNYKJMYBGDLN5828-06-40 16:12:00 Test Item Value Reference Range Interpretation Comments CO2 (test code = CO2) 28 24-32 [facility] HospitalHgqaehySHKRNQGYOQQG8459-09-73 16:12:00 Test Item Value Reference Range Interpretation Comments Chloride Lvl (test code = Chloride Lvl) 102 95-109 [facility] HospitalWjxhjfsPUNTOWHOIOOR7822-62-52 16:12:00 Test Item Value Reference Range Interpretation Comments Potassium Lvl (test code = Potassium 3.7 3.5-5.1 Lvl) [facility] HospitalJrjmwpkJVQEJFHSRDFN7552-07-30 16:12:00 Test Item Value Reference Range Interpretation Comments Calcium Lvl (test code = Calcium Lvl) 8.9 8.5-10.5 [facility] HospitalJyqakpuAXQTJVKRCLIV4404-39-73 16:12:00 Test Item Value Reference Range Interpretation Comments Sodium Lvl (test code = Sodium Lvl) 136 135-145 [facility] HospitalGjobdfzAFRVVHZYSJAL3071-39-09 16:12:00 Test Item Value Reference Range Interpretation Comments Creatinine Lvl (test code = Creatinine 1.06 0.50-1.40 Lvl) [facility] HospitalEvbilmxXGQIASIJRRTQ9020-06-84 16:12:00 Test Item Value Reference Range Interpretation Comments BUN (test code = BUN) 15 7-22 [facility] HospitalMrqrnilJTQXJQSVAISH9851-70-11 16:12:00 Test Item Value Reference Range Interpretation Comments Glucose Lvl (test code = Glucose Lvl) 87 70-99 [facility] HospitalNecxbppPGSEDQJWDY4138-57-22 16:12:00 Test Item Value Reference Range Interpretation Comments Hct (test code = Hct) 33.1 42.0-54.0 [facility] HospitalEoatxmgXWYBOJNBRA8567-35-48 16:12:00 Test Item Value Reference Range Interpretation Comments Platelet (test code = Platelet) 188 133-450 [facility] HospitalRfmnxbgHBTMFQJHPK7386-25-86 16:12:00 Test Item Value Reference Range Interpretation Comments Hgb (test code = Hgb) 11.0 14.0-18.0 [facility] HospitalLfnbquuLEFOIAFLEL4540-16-50 16:12:00 Test Item Value Reference Range Interpretation Comments MPV (test code = MPV) 7.5 7.4-10.4 [facility] HospitalHzhgasfNMVIRTQJDS2394-44-70 16:12:00 Test Item Value Reference Range Interpretation Comments MCV (test code = MCV) 89.2 80.0-94.0 [facility] HospitalSvspipuQJZQGMXICC3852-07-08 16:12:00 Test Item Value Reference Range Interpretation Comments MCH (test code = MCH) 29.5 pg 27.0-31.0 [facility] HospitalIvzlffuXRDRDYMNMK1264-02-30 16:12:00 Test Item Value Reference Range Interpretation Comments RBC (test code = RBC) 3.72 4.70-6.10 [facility] HospitalGwquiasZGMZLGWSZU1823-34-23 16:12:00 Test Item Value Reference Range Interpretation Comments RDW (test code = RDW) 14.7 11.5-14.5 [facility] HospitalWhkmhqtJCNTYRWAXX0853-25-60 16:12:00 Test Item Value Reference Range Interpretation Comments WBC (test code = WBC) 8.2 3.7-10.4 [facility] HospitalCepplsrDLUQIICJPU8803-54-75 16:12:00 Test Item Value Reference Range Interpretation Comments MCHC (test code = MCHC) 33.1 32.0-36.0 [facility] HospitalNhovrpnFFMOHRDPJL6207-81-83 16:12:00 Test Item Value Reference Range Interpretation Comments PT (test code = PT) 16.6 s 12.0-14.7 [facility] HospitalXwzpnmnIZLFPPMWTF3212-86-99 16:12:00 Test Item Value Reference Range Interpretation Comments INR (test code = INR) 1.32 0.85-1.17 [facility] HospitalUvrwtqnGSGKWBPIFH7764-61-07 16:12:00 Test Item Value Reference Range Interpretation Comments PTT (test code = PTT) 43.0 s 22.9-35.8 [facility] HospitalEraqpfdFFVZUXQGGT2782-51-52 16:12:00 Test Item Value Reference Range Interpretation Comments Monocytes # (test code 1.6 See_Comment [Aut omated message] The = Monocytes #) system which generated this result tra nsmitted reference range : <=0.8. The reference r gianfranco was not used to int erpret this result as normal/abnormal . [facility] HospitalOtpexinQGFIAMNZLV9241-51-85 16:12:00 Test Item Value Reference Range Interpretation Comments Eosinophils # (test code 0.3 See_Comment [A utomated message] The = Eosinophils #) system whic h generated this result tra nsmitted reference range : <=0.5. The reference r gianfranco was not used to int erpret this result as normal/abnormal . [facility] HospitalOicrxezEJEPDGPTZW9937-20-44 16:12:00 Test Item Value Reference Range Interpretation Comments Lymphocytes # (test code = Lymphocytes 1.7 1.0-5.5 #) [facility] HospitalMcixwplREDOWTAPXC9567-72-50 16:12:00 Test Item Value Reference Range Interpretation Comments Basophils (test code = 0.5 See_Comment [Aut omated message] The Basophils) system which ge nerated this result tra nsmitted reference range : <=1.0. The reference r gianfranco was not used to int erpret this result as normal/abnormal . [facility] HospitalKhlpryoHRELGVNIBI0316-34-54 16:12:00 Test Item Value Reference Range Interpretation Comments Segs-Bands # (test code = Segs-Bands #) 4.5 1.5-8.1 [facility] HospitalInjwovfDGCREDWNWG3191-31-88 16:12:00 Test Item Value Reference Range Interpretation Comments Eosinophils (test code = 3.4 See_Comment [A utomated message] The Eosinophils) system which ge nerated this result tra nsmitted reference range : <=4.0. The reference r gianfranco was not used to int erpret this result as normal/abnormal . [facility] HospitalYdkuxefCURQXBNBCK5922-21-68 16:12:00 Test Item Value Reference Range Interpretation Comments Segs (test code = Segs) 55.3 45.0-75.0 [facility] HospitalXebpunlCDNGMFWXPK4751-85-31 16:12:00 Test Item Value Reference Range Interpretation Comments Lymphocytes (test code = Lymphocytes) 21.2 20.0-40.0 [facility] HospitalVldvhkiFPGOJCTUXH2543-62-84 16:12:00 Test Item Value Reference Range Interpretation Comments Monocytes (test code = Monocytes) 19.6 2.0-12.0 [facility] CentennialDaily Interactive NetworksHammerhead Navigation DYBIXGE7031-32-37 16:12:00 Test Item Value Reference Range Interpretation Comments ABO/Rh (test code = ABO/Rh) O POS [facility] TJSUMJS8590-98-77 16:12:00 Test Item Value Reference Range Interpretation Comments Antibody Scrn (test Negative (09/11/16 11:12 code = Antibody Scrn) AM) [facility]ennialMoisture [employer]apper International [id number] 16:12:00 Test Item Value Reference Range Interpretation Comments Phosphorus (test code = Phosphorus) 3.3 2.5-4.5 [facility]ennialMoisture Mapper International [id number] 16:12:00 Test Item Value Reference Range Interpretation Comments Magnesium Lvl (test code = Magnesium 1.6 1.8-2.4 Lvl) [facility] CentennialBgvaxpaCHWJSXWLLCAM6494-67-51 16:12:00 Test Item Value Reference Range Interpretation Comments AGAP (test code = AGAP) 9.7 10.0-20.0 [facility] CentennialNynmatzRIJFFUOOTVPL9598-93-99 16:12:00 Test Item Value Reference Range Interpretation Comments eGFR (test code = eGFR) 69 [facility] CentennialGlhlfhgYXATNJHIODOK3496-36-74 16:12:00 Test Item Value Reference Range Interpretation Comments CO2 (test code = CO2) 28 24-32 [facility] CentennialNzyvcbyWPPJILYDXEGG7154-46-38 16:12:00 Test Item Value Reference Range Interpretation Comments Chloride Lvl (test code = Chloride Lvl) 102 95-109 [facility] CentennialPhhkqdlPHMTFTFVWXSI6716-21-95 16:12:00 Test Item Value Reference Range Interpretation Comments Potassium Lvl (test code = Potassium 3.7 3.5-5.1 Lvl) [facility] CentennialTmqndaaYAFYAQLGUYOR4433-42-51 16:12:00 Test Item Value Reference Range Interpretation Comments Calcium Lvl (test code = Calcium Lvl) 8.9 8.5-10.5 [facility] HospitalJxsbjjbHVRLYMQTXOAR5694-56-45 16:12:00 Test Item Value Reference Range Interpretation Comments Sodium Lvl (test code = Sodium Lvl) 136 135-145 [facility] HospitalRobgollIUVFXXFRWNTD5826-48-54 16:12:00 Test Item Value Reference Range Interpretation Comments Creatinine Lvl (test code = Creatinine 1.06 0.50-1.40 Lvl) [facility] HospitalUeysixrBCOSNDTVUCKU7287-48-61 16:12:00 Test Item Value Reference Range Interpretation Comments BUN (test code = BUN) 15 7-22 [facility] HospitalEklluakVILCHNYDVJWR2590-28-59 16:12:00 Test Item Value Reference Range Interpretation Comments Glucose Lvl (test code = Glucose Lvl) 87 70-99 [facility] HospitalYehmavcJJSXWAEMDD9551-00-02 16:12:00 Test Item Value Reference Range Interpretation Comments Hct (test code = Hct) 33.1 42.0-54.0 [facility] HospitalZiiynxhPZROXYGFZY8145-13-95 16:12:00 Test Item Value Reference Range Interpretation Comments Platelet (test code = Platelet) 188 133-450 [facility] HospitalDgplgmzWNSMNNCBCB4569-55-34 16:12:00 Test Item Value Reference Range Interpretation Comments Hgb (test code = Hgb) 11.0 14.0-18.0 [facility] HospitalNagrwmqXHCVVEAWBV9411-72-17 16:12:00 Test Item Value Reference Range Interpretation Comments MPV (test code = MPV) 7.5 7.4-10.4 [facility] HospitalMxzttsyWBTMWRDDLV9127-57-76 16:12:00 Test Item Value Reference Range Interpretation Comments MCV (test code = MCV) 89.2 80.0-94.0 [facility] HospitalKhqtgdvETLSGSSIBO3631-20-46 16:12:00 Test Item Value Reference Range Interpretation Comments MCH (test code = MCH) 29.5 pg 27.0-31.0 [facility] HospitalJsgiucaEWQCTVYYVU5551-60-79 16:12:00 Test Item Value Reference Range Interpretation Comments RBC (test code = RBC) 3.72 4.70-6.10 [facility] HospitalTkvkuqvGGSHDMDQYK0077-88-48 16:12:00 Test Item Value Reference Range Interpretation Comments RDW (test code = RDW) 14.7 11.5-14.5 [facility] HospitalJribjsvMBVYZFDFAJ3543-56-49 16:12:00 Test Item Value Reference Range Interpretation Comments WBC (test code = WBC) 8.2 3.7-10.4 [facility] HospitalDipwcujYFIEBTMRYE1153-76-74 16:12:00 Test Item Value Reference Range Interpretation Comments MCHC (test code = MCHC) 33.1 32.0-36.0 [facility] HospitalXmqionwSTELRCVCZV4854-05-38 16:12:00 Test Item Value Reference Range Interpretation Comments PT (test code = PT) 16.6 s 12.0-14.7 [facility] HospitalBargahcLIQPLYSJUC8966-22-04 16:12:00 Test Item Value Reference Range Interpretation Comments INR (test code = INR) 1.32 0.85-1.17 [facility] HospitalUyscdkaQRNIIRYQHK7287-83-92 16:12:00 Test Item Value Reference Range Interpretation Comments PTT (test code = PTT) 43.0 s 22.9-35.8 [facility] HospitalYmufkwsEXCMJYXBTI8502-07-09 16:12:00 Test Item Value Reference Range Interpretation Comments Monocytes # (test code 1.6 See_Comment [Aut omated message] The = Monocytes #) system which generated this result tra nsmitted reference range : <=0.8. The reference r gianfranco was not used to int erpret this result as normal/abnormal . [facility] HospitalXkgdhhsBKXCOOOZQE2233-90-91 16:12:00 Test Item Value Reference Range Interpretation Comments Eosinophils # (test code 0.3 See_Comment [A utomated message] The = Eosinophils #) system whic h generated this result tra nsmitted reference range : <=0.5. The reference r gianfranco was not used to int erpret this result as normal/abnormal . [facility] HospitalGuzrbamVKDNNYBEDW7228-90-79 16:12:00 Test Item Value Reference Range Interpretation Comments Lymphocytes # (test code = Lymphocytes 1.7 1.0-5.5 #) [facility] HospitalCyrbcojUPUFXCTLJB4679-17-09 16:12:00 Test Item Value Reference Range Interpretation Comments Basophils (test code = 0.5 See_Comment [Aut omated message] The Basophils) system which ge nerated this result tra nsmitted reference range : <=1.0. The reference r gianfranco was not used to int erpret this result as normal/abnormal . [facility] HospitalYqmtnneCOSYBBIBID5896-90-53 16:12:00 Test Item Value Reference Range Interpretation Comments Segs-Bands # (test code = Segs-Bands #) 4.5 1.5-8.1 [facility] HospitalMggwxfbLUYILBFYYA7609-98-33 16:12:00 Test Item Value Reference Range Interpretation Comments Eosinophils (test code = 3.4 See_Comment [A utomated message] The Eosinophils) system which ge nerated this result tra nsmitted reference range : <=4.0. The reference r gianfranco was not used to int erpret this result as normal/abnormal . [facility] CenterMoxpstgJVMZVJLAVP9960-31-28 16:12:00 Test Item Value Reference Range Interpretation Comments Segs (test code = Segs) 55.3 45.0-75.0 [facility] CenterZucldrqHCWMBHHEAQ3168-89-01 16:12:00 Test Item Value Reference Range Interpretation Comments Lymphocytes (test code = Lymphocytes) 21.2 20.0-40.0 [facility] CentennialPoassrhEEWGXGGDVI3913-93-27 16:12:00 Test Item Value Reference Range Interpretation Comments Monocytes (test code = Monocytes) 19.6 2.0-12.0 [facility] [employer] AVCBRRI0850-50-26 16:12:00 Test Item Value Reference Range Interpretation Comments ABO/Rh (test code = ABO/Rh) O POS [facility] [employer] [id number] 16:12:00 Test Item Value Reference Range Interpretation Comments Antibody Scrn (test Negative (09/11/16 11:12 code = Antibody Scrn) AM) [facility]ennialMoisture M[facility] International [id number] 16:12:00 Test Item Value Reference Range Interpretation Comments Phosphorus (test code = Phosphorus) 3.3 2.5-4.5 [facility] [employer] ZBZSE6980-27-62 16:12:00 Test Item Value Reference Range Interpretation Comments Magnesium Lvl (test code = Magnesium 1.6 1.8-2.4 Lvl) [facility] CentennialCxrcbbzEYZVRTPDCFVH6616-59-77 16:12:00 Test Item Value Reference Range Interpretation Comments AGAP (test code = AGAP) 9.7 10.0-20.0 [facility] CentennialMgzzgbnPTRQNLQJBHWJ4060-70-10 16:12:00 Test Item Value Reference Range Interpretation Comments eGFR (test code = eGFR) 69 [facility] CentennialHoahkarUAKBNEHFTNNY4056-73-79 16:12:00 Test Item Value Reference Range Interpretation Comments CO2 (test code = CO2) 28 24-32 [facility] CentennialHjnzccjMNTXOGOVNYCM5477-84-03 16:12:00 Test Item Value Reference Range Interpretation Comments Chloride Lvl (test code = Chloride Lvl) 102 95-109 [facility] CentennialVzaaeksNGRIBEVWBDVU2681-90-22 16:12:00 Test Item Value Reference Range Interpretation Comments Potassium Lvl (test code = Potassium 3.7 3.5-5.1 Lvl) [facility]WwwcewsEDLYYQAIHUMG0296-01-95 16:12:00 Test Item Value Reference Range Interpretation Comments Calcium Lvl (test code = Calcium Lvl) 8.9 8.5-10.5 [facility] HospitalEflyhthJEJEKZLQWISB4769-89-41 16:12:00 Test Item Value Reference Range Interpretation Comments Sodium Lvl (test code = Sodium Lvl) 136 135-145 [facility] HospitalEbkwyjsSHTGIQVFXVGZ2646-75-22 16:12:00 Test Item Value Reference Range Interpretation Comments Creatinine Lvl (test code = Creatinine 1.06 0.50-1.40 Lvl) [facility] HospitalXrssijgNTYMZCOGTSNX1037-95-62 16:12:00 Test Item Value Reference Range Interpretation Comments BUN (test code = BUN) 15 7-22 [facility] HospitalMjljhpyWTBHVDNXFCXH8201-64-51 16:12:00 Test Item Value Reference Range Interpretation Comments Glucose Lvl (test code = Glucose Lvl) 87 70-99 [facility] HospitalIwjfwrbEQZJXVLWEW7547-03-68 16:12:00 Test Item Value Reference Range Interpretation Comments Hct (test code = Hct) 33.1 42.0-54.0 [facility] HospitalLlskmjhVSZFRVAPML3874-23-76 16:12:00 Test Item Value Reference Range Interpretation Comments Platelet (test code = Platelet) 188 133-450 [facility] HospitalPwqvvedKPOYVOCNUB8264-95-70 16:12:00 Test Item Value Reference Range Interpretation Comments Hgb (test code = Hgb) 11.0 14.0-18.0 [facility] HospitalSejebubFFMSQBPAKP1134-85-99 16:12:00 Test Item Value Reference Range Interpretation Comments MPV (test code = MPV) 7.5 7.4-10.4 [facility] HospitalPpvhjfwGIYXPKMYEX7802-66-34 16:12:00 Test Item Value Reference Range Interpretation Comments MCV (test code = MCV) 89.2 80.0-94.0 [facility] HospitalLemngzrJDBPKJQIYM5258-87-03 16:12:00 Test Item Value Reference Range Interpretation Comments MCH (test code = MCH) 29.5 pg 27.0-31.0 [facility] HospitalYxzukkaLVVCIALTJM6803-43-44 16:12:00 Test Item Value Reference Range Interpretation Comments RBC (test code = RBC) 3.72 4.70-6.10 [facility] HospitalCfbhheuINSWUVLJLO0716-68-24 16:12:00 Test Item Value Reference Range Interpretation Comments RDW (test code = RDW) 14.7 11.5-14.5 [facility] HospitalDsbdsrsVOGYBFTADW2914-18-77 16:12:00 Test Item Value Reference Range Interpretation Comments WBC (test code = WBC) 8.2 3.7-10.4 [facility] HospitalUtibnlbGOYYJUBLMG3939-65-01 16:12:00 Test Item Value Reference Range Interpretation Comments MCHC (test code = MCHC) 33.1 32.0-36.0 [facility] HospitalPmkcmbnKVNXIBNKNI1013-27-36 16:12:00 Test Item Value Reference Range Interpretation Comments PT (test code = PT) 16.6 s 12.0-14.7 [facility]2015-01-26 16:27:00 Test Item Value Reference Range Interpretation Comments Calcium Lvl (test code = Calcium Lvl) 9.4 8.5-10.5 [facility]2015-01-26 16:27:00 Test Item Value Reference Range Interpretation Comments CO2 (test code = CO2) 26 24-32 [facility]2015-01-26 16:27:00 Test Item Value Reference Range Interpretation Comments eGFR (test code = eGFR) 40 [facility]2015-01-26 16:27:00 Test Item Value Reference Range Interpretation Comments BUN (test code = BUN) 45 7-22 [facility]2015-01-26 16:27:00 Test Item Value Reference Range Interpretation Comments Glucose Lvl (test code = Glucose Lvl) 100 70-99 [facility]2015-01-26 16:27:00 Test Item Value Reference Range Interpretation Comments Potassium Lvl (test code = Potassium 4.4 3.5-5.1 Lvl) [facility]2015-01-26 16:27:00 Test Item Value Reference Range Interpretation Comments Chloride Lvl (test code = Chloride Lvl) 106 95-109 [facility]2015-01-26 16:27:00 Test Item Value Reference Range Interpretation Comments Creatinine Lvl (test code = Creatinine 1.7 0.5-1.4 Lvl) [facility]2015-01-26 16:27:00 Test Item Value Reference Range Interpretation Comments Sodium Lvl (test code = Sodium Lvl) 139 135-145 [facility]2015-01-26 16:27:00 Test Item Value Reference Range Interpretation Comments AGAP (test code = AGAP) 11.4 10.0-20.0 [facility] HospitalPutceovBAMTRWFGWQ6494-74-57 16:27:00 Test Item Value Reference Range Interpretation Comments MPV (test code = MPV) 7.3 7.4-10.4 [facility] HospitalGjvvlzxQIHAFYGHDY6000-83-34 16:27:00 Test Item Value Reference Range Interpretation Comments MCHC (test code = MCHC) 33.9 32.0-36.0 [facility] HospitalBsianteILFMHVFYQP6884-71-92 16:27:00 Test Item Value Reference Range Interpretation Comments Platelet (test code = Platelet) 198 133-450 [facility] HospitalDlphojoUHKLHTQIKZ3993-47-28 16:27:00 Test Item Value Reference Range Interpretation Comments Hgb (test code = Hgb) 13.7 14.0-18.0 [facility] HospitalPmifypsGLLAYPBWIO9514-98-31 16:27:00 Test Item Value Reference Range Interpretation Comments RDW (test code = RDW) 14.6 11.5-14.5 [facility] HospitalIvmalreMFPZZYKZBZ9882-85-03 16:27:00 Test Item Value Reference Range Interpretation Comments Hct (test code = Hct) 40.4 42.0-54.0 [facility] HospitalIkimilcRWHSMXBUWO9619-49-13 16:27:00 Test Item Value Reference Range Interpretation Comments MCH (test code = MCH) 31.5 pg 27.0-31.0 [facility] HospitalFqkblkjCJLPNNSEKH9485-01-97 16:27:00 Test Item Value Reference Range Interpretation Comments MCV (test code = MCV) 92.8 80.0-94.0 [facility] HospitalOdxfsupFLMYGOYIZG3988-71-79 16:27:00 Test Item Value Reference Range Interpretation Comments RBC (test code = RBC) 4.35 4.70-6.10 [facility] HospitalRckxqcaKITJSSJAHG7136-86-95 16:27:00 Test Item Value Reference Range Interpretation Comments WBC (test code = WBC) 9.4 3.7-10.4 [facility] HospitalImwtzvuNRNBIMFFWA1032-25-65 16:27:00 Test Item Value Reference Range Interpretation Comments Eosinophils (test code = 2.4 See_Comment [A utomated message] The Eosinophils) system which ge nerated this result tra nsmitted reference range : <=4.0. The reference r gianfranco was not used to int erpret this result as normal/abnormal . [facility] HospitalIxljrfuIMOCPJMSZW0310-84-39 16:27:00 Test Item Value Reference Range Interpretation Comments Monocytes (test code = Monocytes) 14.6 2.0-12.0 [facility] HospitalAnkfkdkEMGNAFSAGA7826-99-60 16:27:00 Test Item Value Reference Range Interpretation Comments Segs-Bands # (test code = Segs-Bands #) 5.5 1.5-8.1 [facility] HospitalWzykktoYGYUEBGUUK9162-04-27 16:27:00 Test Item Value Reference Range Interpretation Comments Lymphocytes (test code = Lymphocytes) 24.1 20.0-40.0 [facility] HospitalIvfoyesSVVSYJKYLN9131-74-41 16:27:00 Test Item Value Reference Range Interpretation Comments Segs (test code = Segs) 58.6 45.0-75.0 [facility] HospitalSwjungbTZCOVWOWRH2120-82-30 16:27:00 Test Item Value Reference Range Interpretation Comments Basophils # (test code 0.0 See_Comment [Aut omated message] The = Basophils #) system which generated this result tra nsmitted reference range : <=0.2. The reference r gianfranco was not used to int erpret this result as normal/abnormal . [facility] HospitalQcvpqexSTSMNBAELX1080-61-57 16:27:00 Test Item Value Reference Range Interpretation Comments Eosinophils # (test code 0.2 See_Comment [A utomated message] The = Eosinophils #) system [facility] h generated this result tra nsmitted reference range : <=0.5. The reference r gianfranco was not used to int erpret this result as normal/abnormal . [facility] HospitalCszyecvNPJFEPHDTQ5639-75-05 16:27:00 Test Item Value Reference Range Interpretation Comments Basophils (test code = 0.3 See_Comment [Aut omated message] The Basophils) system which ge nerated this result tra nsmitted reference range : <=1.0. The reference r gianfranco was not used to int erpret this result as normal/abnormal . [facility] HospitalVpwujmySTAURDXSFF7064-86-87 16:27:00 Test Item Value Reference Range Interpretation Comments Monocytes # (test code 1.4 See_Comment [Aut omated message] The = Monocytes #) system which generated this result tra nsmitted reference range : <=0.8. The reference r gianfranco was not used to int erpret this result as normal/abnormal . [facility] HospitalQzanuyrMGIHGVBAHA1821-72-48 16:27:00 Test Item Value Reference Range Interpretation Comments Lymphocytes # (test code = Lymphocytes 2.3 1.0-5.5 #) [facility]2015-01-26 16:27:00 Test Item Value Reference Range Interpretation Comments Calcium Lvl (test code = Calcium Lvl) 9.4 8.5-10.5 [facility]2015-01-26 16:27:00 Test Item Value Reference Range Interpretation Comments CO2 (test code = CO2) 26 24-32 [facility]2015-01-26 16:27:00 Test Item Value Reference Range Interpretation Comments eGFR (test code = eGFR) 40 [facility]2015-01-26 16:27:00 Test Item Value Reference Range Interpretation Comments BUN (test code = BUN) 45 7-22 [facility]2015-01-26 16:27:00 Test Item Value Reference Range Interpretation Comments Glucose Lvl (test code = Glucose Lvl) 100 70-99 [facility]2015-01-26 16:27:00 Test Item Value Reference Range Interpretation Comments Potassium Lvl (test code = Potassium 4.4 3.5-5.1 Lvl) [facility]2015-01-26 16:27:00 Test Item Value Reference Range Interpretation Comments Chloride Lvl (test code = Chloride Lvl) 106 95-109 [facility]2015-01-26 16:27:00 Test Item Value Reference Range Interpretation Comments Creatinine Lvl (test code = Creatinine 1.7 0.5-1.4 Lvl) [facility]2015-01-26 16:27:00 Test Item Value Reference Range Interpretation Comments Sodium Lvl (test code = Sodium Lvl) 139 135-145 [facility]2015-01-26 16:27:00 Test Item Value Reference Range Interpretation Comments AGAP (test code = AGAP) 11.4 10.0-20.0 [facility] HospitalWgbogoeVRGFXVTQWX4520-03-73 16:27:00 Test Item Value Reference Range Interpretation Comments MPV (test code = MPV) 7.3 7.4-10.4 [place] 106465-01-26 16:27:00 Test Item Value Reference Range Interpretation Comments MCHC (test code = MCHC) 33.9 32.0-36.0 [facility] HospitalPnbexjxGGRPMYEBSL2879-00-79 16:27:00 Test Item Value Reference Range Interpretation Comments Platelet (test code = Platelet) 198 133-450 [facility] HospitalRbautolIAUPAAOTIP2104-73-00 16:27:00 Test Item Value Reference Range Interpretation Comments Hgb (test code = Hgb) 13.7 14.0-18.0 [facility] HospitalKlnjhsrWSWUDZZKUB7332-13-01 16:27:00 Test Item Value Reference Range Interpretation Comments RDW (test code = RDW) 14.6 11.5-14.5 [facility] HospitalUzrtlecINFUJGGNNI6271-34-70 16:27:00 Test Item Value Reference Range Interpretation Comments Hct (test code = Hct) 40.4 42.0-54.0 [facility] HospitalGiefvizTVTDJGIKHG4777-89-06 16:27:00 Test Item Value Reference Range Interpretation Comments MCH (test code = MCH) 31.5 pg 27.0-31.0 [facility] HospitalCkjuwzqFTAJMWDKWA5425-61-28 16:27:00 Test Item Value Reference Range Interpretation Comments MCV (test code = MCV) 92.8 80.0-94.0 [facility] HospitalKlvdsblNGBVLKTCCL5849-28-40 16:27:00 Test Item Value Reference Range Interpretation Comments RBC (test code = RBC) 4.35 4.70-6.10 [facility] HospitalFaalnswPNCCHBXKGH9973-98-89 16:27:00 Test Item Value Reference Range Interpretation Comments WBC (test code = WBC) 9.4 3.7-10.4 [facility] HospitalNemutnqQIOCPCZNGD5625-87-96 16:27:00 Test Item Value Reference Range Interpretation Comments Eosinophils (test code = 2.4 See_Comment [A utomated message] The Eosinophils) system which ge nerated this result tra nsmitted reference range : <=4.0. The reference r gianfranco was not used to int erpret this result as normal/abnormal . [facility] HospitalYuirybgCNQNQTMTLD0606-80-16 16:27:00 Test Item Value Reference Range Interpretation Comments Monocytes (test code = Monocytes) 14.6 2.0-12.0 [facility] HospitalHaiqcybZWQAVUXPMC9824-13-57 16:27:00 Test Item Value Reference Range Interpretation Comments Segs-Bands # (test code = Segs-Bands #) 5.5 1.5-8.1 [facility] HospitalKsutqnuTPCLOEAODP8317-28-99 16:27:00 Test Item Value Reference Range Interpretation Comments Lymphocytes (test code = Lymphocytes) 24.1 20.0-40.0 [facility] HospitalTbwtozfIQDSEREOHS3907-09-50 16:27:00 Test Item Value Reference Range Interpretation Comments Segs (test code = Segs) 58.6 45.0-75.0 [facility] HospitalRgzrisjDNHGAWBRXK6225-46-25 16:27:00 Test Item Value Reference Range Interpretation Comments Basophils # (test code 0.0 See_Comment [Aut omated message] The = Basophils #) system which generated this result tra nsmitted reference range : <=0.2. The reference r gianfranco was not used to int erpret this result as normal/abnormal . [facility] HospitalHtexolyUTWKCTQDXJ8407-44-35 16:27:00 Test Item Value Reference Range Interpretation Comments Eosinophils # (test code 0.2 See_Comment [A utomated message] The = Eosinophils #) system whic h generated this result tra nsmitted reference range : <=0.5. The reference r gianfranco was not used to int erpret this result as normal/abnormal . [facility] HospitalKggasyaBDBQKUWVLY7287-56-61 16:27:00 Test Item Value Reference Range Interpretation Comments Basophils (test code = 0.3 See_Comment [Aut omated message] The Basophils) system which ge nerated this result tra nsmitted reference range : <=1.0. The reference r gianfranco was not used to int erpret this result as normal/abnormal . [facility] HospitalNnlvderJNIXDAIKHB4706-60-41 16:27:00 Test Item Value Reference Range Interpretation Comments Monocytes # (test code 1.4 See_Comment [Aut omated message] The = Monocytes #) system which generated this result tra nsmitted reference range : <=0.8. The reference r gainfranco was not used to int erpret this result as normal/abnormal . [facility] HospitalRzwacwdQBGHJYMJEA0950-37-38 16:27:00 Test Item Value Reference Range Interpretation Comments Lymphocytes # (test code = Lymphocytes 2.3 1.0-5.5 #) [facility]2015-01-26 16:27:00 Test Item Value Reference Range Interpretation Comments Calcium Lvl (test code = Calcium Lvl) 9.4 8.5-10.5 [facility]2015-01-26 16:27:00 Test Item Value Reference Range Interpretation Comments CO2 (test code = CO2) 26 24-32 [facility]2015-01-26 16:27:00 Test Item Value Reference Range Interpretation Comments eGFR (test code = eGFR) 40 [facility]2015-01-26 16:27:00 Test Item Value Reference Range Interpretation Comments BUN (test code = BUN) 45 7-22 [facility]2015-01-26 16:27:00 Test Item Value Reference Range Interpretation Comments Glucose Lvl (test code = Glucose Lvl) 100 70-99 [facility]2015-01-26 16:27:00 Test Item Value Reference Range Interpretation Comments Potassium Lvl (test code = Potassium 4.4 3.5-5.1 Lvl) [facility]2015-01-26 16:27:00 Test Item Value Reference Range Interpretation Comments Chloride Lvl (test code = Chloride Lvl) 106 95-109 [facility]2015-01-26 16:27:00 Test Item Value Reference Range Interpretation Comments Creatinine Lvl (test code = Creatinine 1.7 0.5-1.4 Lvl) [facility]2015-01-26 16:27:00 Test Item Value Reference Range Interpretation Comments Sodium Lvl (test code = Sodium Lvl) 139 135-145 [facility]2015-01-26 16:27:00 Test Item Value Reference Range Interpretation Comments AGAP (test code = AGAP) 11.4 10.0-20.0 [facility] HospitalEejygfuXVLUBFHVAW6781-25-86 16:27:00 Test Item Value Reference Range Interpretation Comments MPV (test code = MPV) 7.3 7.4-10.4 [facility] HospitalUplimdgKTFVTCONDC3922-36-28 16:27:00 Test Item Value Reference Range Interpretation Comments MCHC (test code = MCHC) 33.9 32.0-36.0 [facility] HospitalAyokvfzMCCUOEOVVE4211-52-86 16:27:00 Test Item Value Reference Range Interpretation Comments Platelet (test code = Platelet) 198 133-450 [facility] HospitalVzuemjvPSXYFHUHZN3508-66-34 16:27:00 Test Item Value Reference Range Interpretation Comments Hgb (test code = Hgb) 13.7 14.0-18.0 [facility] HospitalBeqrcdnCZTJIWMFUF5460-30-85 16:27:00 Test Item Value Reference Range Interpretation Comments RDW (test code = RDW) 14.6 11.5-14.5 [facility] HospitalJrsxfblCNTCYDQXJM9370-31-74 16:27:00 Test Item Value Reference Range Interpretation Comments Hct (test code = Hct) 40.4 42.0-54.0 [facility] HospitalRquhxunAJOHBFYMRT6893-06-41 16:27:00 Test Item Value Reference Range Interpretation Comments MCH (test code = MCH) 31.5 pg 27.0-31.0 [facility] HospitalKbeguosUOJCXPIUKC5197-01-95 16:27:00 Test Item Value Reference Range Interpretation Comments MCV (test code = MCV) 92.8 80.0-94.0 [facility] HospitalFergmpoSTNDENAHNK9093-49-37 16:27:00 Test Item Value Reference Range Interpretation Comments RBC (test code = RBC) 4.35 4.70-6.10 [facility] HospitalYtopmxvNRNCXQHNLX4930-13-14 16:27:00 Test Item Value Reference Range Interpretation Comments WBC (test code = WBC) 9.4 3.7-10.4 [facility] HospitalJtdmszlFIOYDUPGNN2362-22-73 16:27:00 Test Item Value Reference Range Interpretation Comments Eosinophils (test code = 2.4 See_Comment [A utomated message] The Eosinophils) system which ge nerated this result tra nsmitted reference range : <=4.0. The reference r gianfranco was not used to int erpret this result as normal/abnormal . [facility] HospitalEqbrrvyHFTSFTBSLD4963-72-15 16:27:00 Test Item Value Reference Range Interpretation Comments Monocytes (test code = Monocytes) 14.6 2.0-12.0 [facility] HospitalEcgtmgaXSJQNAXQCI0511-70-59 16:27:00 Test Item Value Reference Range Interpretation Comments Segs-Bands # (test code = Segs-Bands #) 5.5 1.5-8.1 [facility] HospitalBvwslpmDLCRCJRGER7709-12-41 16:27:00 Test Item Value Reference Range Interpretation Comments Lymphocytes (test code = Lymphocytes) 24.1 20.0-40.0 [facility] HospitalUwngihnLLEWSJSRZY5807-04-90 16:27:00 Test Item Value Reference Range Interpretation Comments Segs (test code = Segs) 58.6 45.0-75.0 [facility] HospitalSdqtexpNQVVKJZYHW8475-56-97 16:27:00 Test Item Value Reference Range Interpretation Comments Basophils # (test code 0.0 See_Comment [Aut omated message] The = Basophils #) system which generated this result tra nsmitted reference range : <=0.2. The reference r gianfranco was not used to int erpret this result as normal/abnormal . [facility] HospitalHuglpokSBFREDZIDW5588-15-90 16:27:00 Test Item Value Reference Range Interpretation Comments Eosinophils # (test code 0.2 See_Comment [A utomated message] The = Eosinophils #) system whic h generated this result tra nsmitted reference range : <=0.5. The reference r gianfranco was not used to int erpret this result as normal/abnormal . [facility] HospitalSohtnnwXZNDLHPALU4232-48-93 16:27:00 Test Item Value Reference Range Interpretation Comments Basophils (test code = 0.3 See_Comment [Aut omated message] The Basophils) system which ge nerated this result tra nsmitted reference range : <=1.0. The reference r gianfranco was not used to int erpret this result as normal/abnormal . [facility] HospitalHaucufwJOCHUMVCHS9226-76-02 16:27:00 Test Item Value Reference Range Interpretation Comments Monocytes # (test code 1.4 See_Comment [Aut omated message] The = Monocytes #) system which generated this result tra nsmitted reference range : <=0.8. The reference r gianfranco was not used to int erpret this result as normal/abnormal . [facility] HospitalEmfrhzjIVWWQGJDMO9727-85-28 16:27:00 Test Item Value Reference Range Interpretation Comments Lymphocytes # (test code = Lymphocytes 2.3 1.0-5.5 #) [facility]2015-01-26 16:27:00 Test Item Value Reference Range Interpretation Comments Calcium Lvl (test code = Calcium Lvl) 9.4 8.5-10.5 [facility]2015-01-26 16:27:00 Test Item Value Reference Range Interpretation Comments CO2 (test code = CO2) 24-32 [facility] CYQKJ0767-49-10 16:27:00 Test Item Value Reference Range Interpretation Comments eGFR (test code = eGFR) 40 [facility]2015-01-26 16:27:00 Test Item Value Reference Range Interpretation Comments BUN (test code = BUN) 45 7-22 [facility]2015-01-26 16:27:00 Test Item Value Reference Range Interpretation Comments Glucose Lvl (test code = Glucose Lvl) 100 70-99 [facility]2015-01-26 16:27:00 Test Item Value Reference Range Interpretation Comments Potassium Lvl (test code = Potassium 4.4 3.5-5.1 Lvl) [facility]2015-01-26 16:27:00 Test Item Value Reference Range Interpretation Comments Chloride Lvl (test code = Chloride Lvl) 106 95-109 [facility]2015-01-26 16:27:00 Test Item Value Reference Range Interpretation Comments Creatinine Lvl (test code = Creatinine 1.7 0.5-1.4 Lvl) [facility]2015-01-26 16:27:00 Test Item Value Reference Range Interpretation Comments Sodium Lvl (test code = Sodium Lvl) 139 135-145 [facility]2015-01-26 16:27:00 Test Item Value Reference Range Interpretation Comments AGAP (test code = AGAP) 11.4 10.0-20.0 [facility] HospitalSsgbyisBHEOHQIOOH7864-44-31 16:27:00 Test Item Value Reference Range Interpretation Comments MPV (test code = MPV) 7.3 7.4-10.4 [facility] HospitalPqaicluINPYEQERDF2670-59-65 16:27:00 Test Item Value Reference Range Interpretation Comments MCHC (test code = MCHC) 33.9 32.0-36.0 [facility] HospitalPvdrjxsECWBHXXKZD1295-16-27 16:27:00 Test Item Value Reference Range Interpretation Comments Platelet (test code = Platelet) 198 133-450 [facility] HospitalZvokdpaECNLIISGYU5918-22-18 16:27:00 Test Item Value Reference Range Interpretation Comments Hgb (test code = Hgb) 13.7 14.0-18.0 [facility] HospitalHhymbcdTOMPAEQMFE7233-02-53 16:27:00 Test Item Value Reference Range Interpretation Comments RDW (test code = RDW) 14.6 11.5-14.5 [facility] HospitalKszvebfPWLEFHMSUH0673-61-89 16:27:00 Test Item Value Reference Range Interpretation Comments Hct (test code = Hct) 40.4 42.0-54.0 [facility] HospitalXevnoutXQHRUNSTMG9097-95-76 16:27:00 Test Item Value Reference Range Interpretation Comments MCH (test code = MCH) 31.5 pg 27.0-31.0 [place] 106465-01-26 16:27:00 Test Item Value Reference Range Interpretation Comments MCV (test code = MCV) 92.8 80.0-94.0 [facility] HospitalEqprvcsFSJRGGPDOA8775-16-06 16:27:00 Test Item Value Reference Range Interpretation Comments RBC (test code = RBC) 4.35 4.70-6.10 [facility] HospitalBtfmizdACTWDMBYPF8025-34-02 16:27:00 Test Item Value Reference Range Interpretation Comments WBC (test code = WBC) 9.4 3.7-10.4 [facility] HospitalCzppozlUEJWPJCOCG5598-59-84 16:27:00 Test Item Value Reference Range Interpretation Comments Eosinophils (test code = 2.4 See_Comment [A utomated message] The Eosinophils) system which ge nerated this result tra nsmitted reference range : <=4.0. The reference r gianfranco was not used to int erpret this result as normal/abnormal . [facility] HospitalIzqzndnNINJILPLNI0474-13-37 16:27:00 Test Item Value Reference Range Interpretation Comments Monocytes (test code = Monocytes) 14.6 2.0-12.0 [facility] HospitalKucwbdlDAKZTARLLS2937-88-43 16:27:00 Test Item Value Reference Range Interpretation Comments Segs-Bands # (test code = Segs-Bands #) 5.5 1.5-8.1 [facility] HospitalGccuvnkGDPCHKVEPX1503-96-41 16:27:00 Test Item Value Reference Range Interpretation Comments Lymphocytes (test code = Lymphocytes) 24.1 20.0-40.0 [facility] HospitalXcpqyaxYNPOAPBJYH8553-56-16 16:27:00 Test Item Value Reference Range Interpretation Comments Segs (test code = Segs) 58.6 45.0-75.0 [facility] HospitalLprxidjLYWFBJHETO9323-40-76 16:27:00 Test Item Value Reference Range Interpretation Comments Basophils # (test code 0.0 See_Comment [Aut omated message] The = Basophils #) system which generated this result tra nsmitted reference range : <=0.2. The reference r gianfranco was not used to int erpret this result as normal/abnormal . [facility] HospitalWmdzyucNRVGWHDMEA3395-00-49 16:27:00 Test Item Value Reference Range Interpretation Comments Eosinophils # (test code 0.2 See_Comment [A utomated message] The = Eosinophils #) system whic h generated this result tra nsmitted reference range : <=0.5. The reference r gianfranco was not used to int erpret this result as normal/abnormal . [facility] HospitalOycwbblSRVIMLWIWW4894-68-72 16:27:00 Test Item Value Reference Range Interpretation Comments Basophils (test code = 0.3 See_Comment [Aut omated message] The Basophils) system which ge nerated this result tra nsmitted reference range : <=1.0. The reference r gianfranco was not used to int erpret this result as normal/abnormal . [facility] HospitalSoymddsJWAZUOFPAO6462-22-74 16:27:00 Test Item Value Reference Range Interpretation Comments Monocytes # (test code 1.4 See_Comment [Aut omated message] The = Monocytes #) system which generated this result tra nsmitted reference range : <=0.8. The reference r gianfranco was not used to int erpret this result as normal/abnormal . [facility] HospitalIduawitFPXKBZDZPZ5967-89-24 16:27:00 Test Item Value Reference Range Interpretation Comments Lymphocytes # (test code = Lymphocytes 2.3 1.0-5.5 #) [facility]2015-01-26 16:27:00 Test Item Value Reference Range Interpretation Comments Calcium Lvl (test code = Calcium Lvl) 9.4 8.5-10.5 [facility]2015-01-26 16:27:00 Test Item Value Reference Range Interpretation Comments CO2 (test code = CO2) 26 24-32 [facility]2015-01-26 16:27:00 Test Item Value Reference Range Interpretation Comments eGFR (test code = eGFR) 40 [facility]2015-01-26 16:27:00 Test Item Value Reference Range Interpretation Comments BUN (test code = BUN) 45 7-22 [place] 639765-01-26 16:27:00 Test Item Value Reference Range Interpretation Comments Glucose Lvl (test code = Glucose Lvl) 100 70-99 [facility]2015-01-26 16:27:00 Test Item Value Reference Range Interpretation Comments Potassium Lvl (test code = Potassium 4.4 3.5-5.1 Lvl) [facility]2015-01-26 16:27:00 Test Item Value Reference Range Interpretation Comments Chloride Lvl (test code = Chloride Lvl) 106 95-109 [facility]2015-01-26 16:27:00 Test Item Value Reference Range Interpretation Comments Creatinine Lvl (test code = Creatinine 1.7 0.5-1.4 Lvl) [facility]2015-01-26 16:27:00 Test Item Value Reference Range Interpretation Comments Sodium Lvl (test code = Sodium Lvl) 139 135-145 [facility]2015-01-26 16:27:00 Test Item Value Reference Range Interpretation Comments AGAP (test code = AGAP) 11.4 10.0-20.0 [facility] HospitalPslkhjoRRAHOCECKR8404-45-19 16:27:00 Test Item Value Reference Range Interpretation Comments MPV (test code = MPV) 7.3 7.4-10.4 [facility] HospitalZubnqekGTWURZRNNE9001-97-95 16:27:00 Test Item Value Reference Range Interpretation Comments MCHC (test code = MCHC) 33.9 32.0-36.0 [facility] HospitalUddzwndEAGRKKXQOL0997-69-93 16:27:00 Test Item Value Reference Range Interpretation Comments Platelet (test code = Platelet) 198 133-450 [facility] HospitalEsywmkfYBHDJBBZSV7637-67-28 16:27:00 Test Item Value Reference Range Interpretation Comments Hgb (test code = Hgb) 13.7 14.0-18.0 [facility] HospitalDokyuavGCQLPNRNKR6868-62-56 16:27:00 Test Item Value Reference Range Interpretation Comments RDW (test code = RDW) 14.6 11.5-14.5 [facility] HospitalAizdzavEEDSDRDEML5475-42-16 16:27:00 Test Item Value Reference Range Interpretation Comments Hct (test code = Hct) 40.4 42.0-54.0 [facility] HospitalRdcdypiCVHGCUDPEN9849-85-48 16:27:00 Test Item Value Reference Range Interpretation Comments MCH (test code = MCH) 31.5 pg 27.0-31.0 [facility] [facility]PV[facility]UET4818-18-43 16:27:00 Test Item Value Reference Range Interpretation Comments MCV (test code = MCV) 92.8 80.0-94.0 [facility]PhcshzpWPWHMJVEOG6701-26-15 16:27:00 Test Item Value Reference Range Interpretation Comments RBC (test code = RBC) 4.35 4.70-6.10 [facility]XbvbjvzHIMZKQUIPX5917-88-98 16:27:00 Test Item Value Reference Range Interpretation Comments WBC (test code = WBC) 9.4 3.7-10.4 [facility] HospitalAvcxhbjPNSTYJXBNG5464-66-59 16:27:00 Test Item Value Reference Range Interpretation Comments Eosinophils (test code = 2.4 See_Comment [A utomated message] The Eosinophils) system which ge nerated this result tra nsmitted reference range : <=4.0. The reference r gianfranco was not used to int erpret this result as normal/abnormal . [facility] HospitalPqbicccTANYXUCNGE2212-01-89 16:27:00 Test Item Value Reference Range Interpretation Comments Monocytes (test code = Monocytes) 14.6 2.0-12.0 [facility] HospitalNridrrjHJUQCKWQZG7536-77-43 16:27:00 Test Item Value Reference Range Interpretation Comments Segs-Bands # (test code = Segs-Bands #) 5.5 1.5-8.1 [facility] HospitalNomufgrXYYHTXEKWV5882-94-59 16:27:00 Test Item Value Reference Range Interpretation Comments Lymphocytes (test code = Lymphocytes) 24.1 20.0-40.0 [place] 106465-01-26 16:27:00 Test Item Value Reference Range Interpretation Comments Segs (test code = Segs) 58.6 45.0-75.0 [facility] HospitalQxqxgjiGAMMYFONVC2454-45-74 16:27:00 Test Item Value Reference Range Interpretation Comments Basophils # (test code 0.0 See_Comment [Aut omated message] The = Basophils #) system which generated this result tra nsmitted reference range : <=0.2. The reference r iganfranco was not used to int erpret this result as normal/abnormal . [facility] HospitalXvodurnLUHPETWIYE9130-86-86 16:27:00 Test Item Value Reference Range Interpretation Comments Eosinophils # (test code 0.2 See_Comment [A utomated message] The = Eosinophils #) system whic h generated this result tra nsmitted reference range : <=0.5. The reference r gianfranco was not used to int erpret this result as normal/abnormal . [facility] HospitalSijlpjyJGQWDAVOYP6127-30-65 16:27:00 Test Item Value Reference Range Interpretation Comments Basophils (test code = 0.3 See_Comment [Aut omated message] The Basophils) system which ge nerated this result tra nsmitted reference range : <=1.0. The reference r gianfranco was not used to int erpret this result as normal/abnormal . [facility] HospitalKagmnhzLUHMKZJFFF2781-26-15 16:27:00 Test Item Value Reference Range Interpretation Comments Monocytes # (test code 1.4 See_Comment [Aut omated message] The = Monocytes #) system which generated this result tra nsmitted reference range : <=0.8. The reference r gianfranco was not used to int erpret this result as normal/abnormal . [facility] HospitalYylgypyXZQIFFSFSG5996-44-39 16:27:00 Test Item Value Reference Range Interpretation Comments Lymphocytes # (test code = Lymphocytes 2.3 1.0-5.5 #) [facility]2015-01-26 16:27:00 Test Item Value Reference Range Interpretation Comments Calcium Lvl (test code = Calcium Lvl) 9.4 8.5-10.5 [facility]2015-01-26 16:27:00 Test Item Value Reference Range Interpretation Comments CO2 (test code = CO2) 26 24-32 [facility]2015-01-26 16:27:00 Test Item Value Reference Range Interpretation Comments eGFR (test code = eGFR) 40 [facility]2015-01-26 16:27:00 Test Item Value Reference Range Interpretation Comments BUN (test code = BUN) 45 7-22 [facility]2015-01-26 16:27:00 Test Item Value Reference Range Interpretation Comments Glucose Lvl (test code = Glucose Lvl) 100 70-99 [facility]2015-01-26 16:27:00 Test Item Value Reference Range Interpretation Comments Potassium Lvl (test code = Potassium 4.4 3.5-5.1 Lvl) [facility]2015-01-26 16:27:00 Test Item Value Reference Range Interpretation Comments Chloride Lvl (test code = Chloride Lvl) 106 95-109 [facility]2015-01-26 16:27:00 Test Item Value Reference Range Interpretation Comments Creatinine Lvl (test code = Creatinine 1.7 0.5-1.4 Lvl) [facility]2015-01-26 16:27:00 Test Item Value Reference Range Interpretation Comments Sodium Lvl (test code = Sodium Lvl) 139 135-145 [facility]2015-01-26 16:27:00 Test Item Value Reference Range Interpretation Comments AGAP (test code = AGAP) 11.4 10.0-20.0 [facility] HospitalRfcalnnUGIUYQKQYN3510-87-73 16:27:00 Test Item Value Reference Range Interpretation Comments MPV (test code = MPV) 7.3 7.4-10.4 [facility] HospitalEshzpcpIBTPECJQYO7350-50-74 16:27:00 Test Item Value Reference Range Interpretation Comments MCHC (test code = MCHC) 33.9 32.0-36.0 [facility] HospitalXcjorkkYDIFGMLRPA9195-06-35 16:27:00 Test Item Value Reference Range Interpretation Comments Platelet (test code = Platelet) 198 133-450 [facility] HospitalUmelkglSDEQIIJWJN4992-56-66 16:27:00 Test Item Value Reference Range Interpretation Comments Hgb (test code = Hgb) 13.7 14.0-18.0 [facility] HospitalMawebnyIKJUVUCIKE7354-79-45 16:27:00 Test Item Value Reference Range Interpretation Comments RDW (test code = RDW) 14.6 11.5-14.5 [facility] HospitalBxplnmuZIOUJSBMDV6361-65-15 16:27:00 Test Item Value Reference Range Interpretation Comments Hct (test code = Hct) 40.4 42.0-54.0 [facility] HospitalCwhnyqlXSJSUXPRKO9787-39-31 16:27:00 Test Item Value Reference Range Interpretation Comments MCH (test code = MCH) 31.5 pg 27.0-31.0 [facility] HospitalWwqsbezKRXKMJHCWG2724-97-55 16:27:00 Test Item Value Reference Range Interpretation Comments MCV (test code = MCV) 92.8 80.0-94.0 [facility] HospitalZjoznezIKGGLSVZQD7902-77-88 16:27:00 Test Item Value Reference Range Interpretation Comments RBC (test code = RBC) 4.35 4.70-6.10 [facility] HospitalFoqzzmdVGCENWFSBG8012-03-41 16:27:00 Test Item Value Reference Range Interpretation Comments WBC (test code = WBC) 9.4 3.7-10.4 [facility] HospitalZryvttiRBJHTRASMB5347-07-28 16:27:00 Test Item Value Reference Range Interpretation Comments Eosinophils (test code = 2.4 See_Comment [A utomated message] The Eosinophils) system which ge nerated this result tra nsmitted reference range : <=4.0. The reference r gianfranco was not used to int erpret this result as normal/abnormal . [facility] HospitalSmjvanuKNZZNSRKFM2212-59-09 16:27:00 Test Item Value Reference Range Interpretation Comments Monocytes (test code = Monocytes) 14.6 2.0-12.0 [facility] HospitalDqvfqtyJFVGLNWREE3781-83-34 16:27:00 Test Item Value Reference Range Interpretation Comments Segs-Bands # (test code = Segs-Bands #) 5.5 1.5-8.1 [facility] HospitalSkynoqmUJCRWQBREF8735-84-21 16:27:00 Test Item Value Reference Range Interpretation Comments Lymphocytes (test code = Lymphocytes) 24.1 20.0-40.0 [facility] HospitalGlpfphsBQDDANBGIS7572-79-39 16:27:00 Test Item Value Reference Range Interpretation Comments Segs (test code = Segs) 58.6 45.0-75.0 [facility] HospitalQleoyofNOLWBRSYSA5140-71-88 16:27:00 Test Item Value Reference Range Interpretation Comments Basophils # (test code 0.0 See_Comment [Aut omated message] The = Basophils #) system which generated this result tra nsmitted reference range : <=0.2. The reference r gianfranco was not used to int erpret this result as normal/abnormal . [facility] HospitalOmhwnzpMTPGJKLUHY0212-63-92 16:27:00 Test Item Value Reference Range Interpretation Comments Eosinophils # (test code 0.2 See_Comment [A utomated message] The = Eosinophils #) system whic h generated this result tra nsmitted reference range : <=0.5. The reference r gianfranco was not used to int erpret this result as normal/abnormal . [facility] HospitalTrlsnscBDUVLOOUAE9589-18-36 16:27:00 Test Item Value Reference Range Interpretation Comments Basophils (test code = 0.3 See_Comment [Aut omated message] The Basophils) system which ge nerated this result tra nsmitted reference range : <=1.0. The reference r gianfranco was not used to int erpret this result as normal/abnormal . [facility] HospitalLdbxupcIIBIJFZKBM7001-98-97 16:27:00 Test Item Value Reference Range Interpretation Comments Monocytes # (test code 1.4 See_Comment [Aut omated message] The = Monocytes #) system which generated this result tra nsmitted reference range : <=0.8. The reference r gianfranco was not used to int erpret this result as normal/abnormal . [facility] HospitalLzxkmfxVTXXKJVDYL5238-54-84 16:27:00 Test Item Value Reference Range Interpretation Comments Lymphocytes # (test code = Lymphocytes 2.3 1.0-5.5 #) [facility]2015-01-26 16:27:00 Test Item Value Reference Range Interpretation Comments Calcium Lvl (test code = Calcium Lvl) 9.4 8.5-10.5 [facility]2015-01-26 16:27:00 Test Item Value Reference Range Interpretation Comments CO2 (test code = CO2) 26 24-32 [place] 639765-01-26 16:27:00 Test Item Value Reference Range Interpretation Comments eGFR (test code = eGFR) 40 [facility]2015-01-26 16:27:00 Test Item Value Reference Range Interpretation Comments BUN (test code = BUN) 45 7-22 [facility]2015-01-26 16:27:00 Test Item Value Reference Range Interpretation Comments Glucose Lvl (test code = Glucose Lvl) 100 70-99 [facility]2015-01-26 16:27:00 Test Item Value Reference Range Interpretation Comments Potassium Lvl (test code = Potassium 4.4 3.5-5.1 Lvl) [facility]2015-01-26 16:27:00 Test Item Value Reference Range Interpretation Comments Chloride Lvl (test code = Chloride Lvl) 106 95-109 [facility]2015-01-26 16:27:00 Test Item Value Reference Range Interpretation Comments Creatinine Lvl (test code = Creatinine 1.7 0.5-1.4 Lvl) [facility]2015-01-26 16:27:00 Test Item Value Reference Range Interpretation Comments Sodium Lvl (test code = Sodium Lvl) 139 135-145 [place] 639765-01-26 16:27:00 Test Item Value Reference Range Interpretation Comments AGAP (test code = AGAP) 11.4 10.0-20.0 [facility] HospitalJyrxpgeWPUDFZAMJX3906-18-01 16:27:00 Test Item Value Reference Range Interpretation Comments MPV (test code = MPV) 7.3 7.4-10.4 [facility] HospitalMcavmgbFZNZYZHJKB2558-23-70 16:27:00 Test Item Value Reference Range Interpretation Comments MCHC (test code = MCHC) 33.9 32.0-36.0 [facility] HospitalZywifpeIGKRWUEGVZ1487-22-18 16:27:00 Test Item Value Reference Range Interpretation Comments Platelet (test code = Platelet) 198 133-450 [facility] HospitalOwsfoegJYTLFCRVHY3956-36-60 16:27:00 Test Item Value Reference Range Interpretation Comments Hgb (test code = Hgb) 13.7 14.0-18.0 [facility] HospitalViwifkwGGXSFGAZWH2373-75-90 16:27:00 Test Item Value Reference Range Interpretation Comments RDW (test code = RDW) 14.6 11.5-14.5 [facility] Hospit[id number] 16:27:00 Test Item Value Reference Range Interpretation Comments Hct (test code = Hct) 40.4 42.0-54.0 [facility] HospitalDzlyqzxNZKDQIGDMO0295-73-97 16:27:00 Test Item Value Reference Range Interpretation Comments MCH (test code = MCH) 31.5 pg 27.0-31.0 [facility] HospitalTtbicrpCEAEMQCAGF9255-15-84 16:27:00 Test Item Value Reference Range Interpretation Comments MCV (test code = MCV) 92.8 80.0-94.0 [facility] HospitalUjvvgaqJLSPSAHQNW9701-12-44 16:27:00 Test Item Value Reference Range Interpretation Comments RBC (test code = RBC) 4.35 4.70-6.10 [facility] HospitalCnxutqrXKOSMBCZZE6229-32-10 16:27:00 Test Item Value Reference Range Interpretation Comments WBC (test code = WBC) 9.4 3.7-10.4 [facility] HospitalLeysqjaWJPRZEPGGQ7962-28-46 16:27:00 Test Item Value Reference Range Interpretation Comments Eosinophils (test code = 2.4 See_Comment [A utomated message] The Eosinophils) system which ge nerated this result tra nsmitted reference range : <=4.0. The reference r gianfranco was not used to int erpret this result as normal/abnormal . [facility] HospitalTqjgnwkDSYMOJZHRF6971-15-79 16:27:00 Test Item Value Reference Range Interpretation Comments Monocytes (test code = Monocytes) 14.6 2.0-12.0 [facility] Hospit[id number] 16:27:00 Test Item Value Reference Range Interpretation Comments Segs-Bands # (test code = Segs-Bands #) 5.5 1.5-8.1 [facility] HospitalGymelhsQCHOVCOSOO1526-46-93 16:27:00 Test Item Value Reference Range Interpretation Comments Lymphocytes (test code = Lymphocytes) 24.1 20.0-40.0 [facility] HospitalIvcpiubLNDHRQGPEG5145-04-42 16:27:00 Test Item Value Reference Range Interpretation Comments Segs (test code = Segs) 58.6 45.0-75.0 [facility] HospitalWwbblwlSTWHJVELEX6729-40-19 16:27:00 Test Item Value Reference Range Interpretation Comments Basophils # (test code 0.0 See_Comment [Aut omated message] The = Basophils #) system which generated this result tra nsmitted reference range : <=0.2. The reference r gianfranco was not used to int erpret this result as normal/abnormal . [facility] HospitalBwtacitDOMHVFABDS1967-00-19 16:27:00 Test Item Value Reference Range Interpretation Comments Eosinophils # (test code 0.2 See_Comment [A utomated message] The = Eosinophils #) system whic h generated this result tra nsmitted reference range : <=0.5. The reference r gianfranco was not used to int erpret this result as normal/abnormal . [facility] HospitalGxodpsfVWBNRPBMBF3436-62-38 16:27:00 Test Item Value Reference Range Interpretation Comments Basophils (test code = 0.3 See_Comment [Aut omated message] The Basophils) system which ge nerated this result tra nsmitted reference range : <=1.0. The reference r gianfranco was not used to int erpret this result as normal/abnormal . [facility] HospitalAzdxqsqCNGOLJUVTH3117-54-45 16:27:00 Test Item Value Reference Range Interpretation Comments Monocytes # (test code 1.4 See_Comment [Aut omated message] The = Monocytes #) system which generated this result tra nsmitted reference range : <=0.8. The reference r gianfranco was not used to int erpret this result as normal/abnormal . [facility] HospitalDwnindjKRYMLZJJOB1349-87-31 16:27:00 Test Item Value Reference Range Interpretation Comments Lymphocytes # (test code = Lymphocytes 2.3 1.0-5.5 #) [facility] Date/Time Note Provider Source 2021-06-[address] [facility] 17:55:49-00:00 OPERATIVE/PROCEDURE REPORT LEVI COLEY FACILITY: [facility] Billing #: [id number] Room: [facility] MR #: [id number] : 1945 DATE OF PROCEDURE: 06/04/2021 SURGEON: Aleksandr Duong DPM PREOPERATIVE DIAGNOSIS: Osteomyelitis distal pha lanx, third digit, left foot. POSTOPERATIVE DIAGNOSIS: Osteomyelitis distal ph alanx, third digit, left foot. PROCEDURES: 1. Partial third digit amputation, left foot. 2. Bone biopsy, proximal phalanx, third digit, l eft foot. FORM SETTER STEEL FORMS: Stanford Marcum, PGY-1. ESTIMATED BLOOD LOSS: Minimal. MATERIALS: None. PATHOLOGY AND MICROBIOLOGY: Include bone and sof t tissue as well as a bone culture of the proximal phalanx t hird left foot. COMPLICATIONS: None. CONDITION: Stable. JUSTIFICATION FOR PROCEDURE: Mr. Coley is a pleas ant 75-year-old male with multiple comorbidities and history of poor compliance, who presented with a nonhealing wound and infection of the third digit left foot. The may ent underwent revascularization. Radiographs were Reviewed which showed evidence of destructive ch anges of the distal phalanx of the third digit left foot. How ever, the remaining digit appeared intact. It is determine d at this time the patient would benefit from a partial amputat ion of third digit left foot. This was discussed with the pat ient prior to surgery. He understands all surgical risks, bene fits, possible complications, understands that no guaranteed ou tcomes are provided. He was advised that further procedures cannot be ruled out at this time. The patient understands that further debridements and/or more proximal amputation can not be ruled out at this time. He agrees with above assessmen t and plan, is willing to proceed all procedures as discussed. PROCEDURE IN DETAIL: The patient was brought to the operating room and placed on the operating table in supine position. Following administration of IV sedation, local a nesthesia was obtained. A total of 10 mL of 1:1 mixture of 1% lidocaine plain and 0.5% Marcaine plain. Once completed, t he patient's left lower extremity was scrubbed, prepped, and draped in the usual aseptic fashion. Attention was direct to the left foot after an a ppropriate time-out, site verification performed. Once completed, ski n scribe utilized for incisional planning was completed. A #15 blade utilized to create a fishmouth type incision jus t distal to the head of the proximal phalanx, third digit, left foot. Skin i ncisions were carried down to the level of capsule where the i nterphalangeal joint was identified. Once this was identified, the di stal aspect of the nonviable digit was then disarticulated at t he level of the interphalangeal joint. This was then passed from the operative field to be sent for further review. Further inspection of wound bed revealed evidenc e of a yellowish discoloration of the head of the proxi mal phalanx of the third digit, left foot. With the use of a [place] ne cutter, the head of the proximal phalanx was resected, passe d from the operative field to be sent for bone cult ure and bone biopsy. Any and all rough edges were smoothed with a hand wrasp. Once completed, wound site presented with active healthy bleeding tissue devoid of necrotic nonviable tissue. The wound site was copiously irrigated with vashe irrigation. It was at this time that it was determined the c losure could be obtained. The plantar surface of the tuft of the third digit left foot was rotated dorsally and anchored in p lace utilizing 3-0 Vicryl. Skin edges then coapted utilizing 4- 0 nylon in a simple interrupted suture type fashion. Minimal tension was noted upon closure. Upon completion, wound site was dressed with Xer oform followed by dry sterile dressing including sterile 4 x 4 gauze, Webril, and Alexis bandage in a mildly compressive manner. The patient tolerated all procedures well, was transferred to recovery room with vital signs stable. Vascular status intact. He w as given explicit instructions to keep all dressing clean at the foot up at all times. The patient will continue to [facility] in-house for further observation and monitoring. We are plann ing for discharge likely in next 24 hours with outpatien t followup visit. BDL/MODL /[id number] 2020-07-[address] [facility] 19:02:35-00:00 OPERATIVE/PROCEDURE REPORT LEVI COLEY FACILITY: [facility] Billing #: [id number] Room: [address] [place] [address] MR #: [id number] : 1945 DATE OF PROCEDURE: 07/02/2020 SURGEON: Aleksandr Duong DPM PREOPERATIVE DIAGNOSIS: Gangrene, right great to e. POSTOPERATIVE DIAGNOSIS: Gangrene, right great t oe. PROCEDURES PERFORMED: 1. Amputation of right great toe. 2. Rotational skin plasty, right foot. SPRING PRODUCTION SUPERVISOR: None. ESTIMATED BLOOD LOSS: Minimal. MATERIALS: None. PATHOLOGY AND MICROBIOLOGY: Bone and soft tissue . COMPLICATIONS: None. CONDITION: Stable. JUSTIFICATION FOR THE PROCEDURE: Mr. Coley is a p leasant 75-year-old male with multiple comorbidities, wh o initially presented to the hospital for necrosis, ischemia , and gangrenous right great toe. The patient underwen t revascularization and is here today for surgical management of his gangrenous necrotic toe. Prior to the surgic al procedure, the patient was made aware of all surgical risks , benefits, and complications, understanding no guaranteed outco mes could be provided. He was made aware of further procedure s and/or high-level amputations such as a below and above amputation cannot be ruled out at this time. He understands all above assessment and plan is willing to proceed with all procedur es indicated. DESCRIPTION OF PROCEDURE: The patient was alia t to the operating room and placed on the operating table in supine position. Following administration of IV sedatio n, local anesthesia was obtained utilizing a total of 20 mL of 1:1 mixture of 1% lidocaine plain and 0.5% Marcaine plain. The patient's right lower extremity was scrubbed, pr epped, and draped in usual aseptic fashion. Attention was directed to the right great toe, g angrene necrosis noted. It was at this time with the uti lization of skin scribe, surgical incisional planning was no vy. Appropriate time-out and site verification perfo rmed. It was at this time, with the use of a #15 blade , a skin incision was created at dorsal distal medial asp ect of first metatarsal shaft, carried distally and circumfer entially distal to the metatarsophalangeal joint. Skin in cision was carried down to the level of bone where the meta tarsophalangeal joint was identified. It was at this time, with sharp and blunt dissec tion, the metatarsophalangeal joint was identified and the digit was then disarticulated at the level of metatarsophalange al joint. The specimen was then removed, passed off to be sent for further review. Further inspection of the wound bed revealed an active healthy bleeding tissue. Metatarsal head presented with a white glistening appearance, devoid of any necrosis. The wound site was copiously irrigated with norm al saline. It was at this time, all bleeders ligated and ca uterized as necessary. It was at this time that the rotational skin albin sty performed. The plantar flap was then rotated dorsally and a nchored in place utilizing 2-0 Vicryl. Skin edges were then coapted under minimal tension utilizing 4-0 nylon in simple in terrupted suture type fashion. Once completed, the wound site was then dressed with Xeroform, followed by sterile 4 x 4 fluff gauze, Webril, A ce bandage in microvascular manner. The patient tolerated all procedure well and was transferred to the recovery room with vi vernell signs stable and vascular status intact. He was instru cted to keep the dressing clean, dry, intact and keep the xi t up and elevated at all the about time. Continue to alok tor the patient on an in-house basis and plan for discha rge in not too distant future. BDL/MODL /[id number] 2016-09-12 EXAM: XR CHEST 2 VIEWS [facility] 10:09:00-00:00 DATE: 09/12/2016 3:00 AM CDKyleigh raymond INDICATION: Line Placement - Status post PPM/ICD [...] platelike atelectasis. 3. Tiny bilateral pleural effusions. 2016-09-12 EXAM: XR CHEST 2 VIEWS [facility] 10:09:00-00:00 DATE: 09/12/2016 3:00 AM CDT [place] r INDICATION: Line Placement - Status post [...] platelike atelectasis. 3. Tiny bilateral pleural effusions. 2016-09-11 Chest one view, 09/11/2016 at 1752 hours [facility] 17:47:00-00:00 HISTORY: 71-year-old man with line placement. Center [...] overlie the right atrium and right ventricle. 2016-09-11 Chest one view, 09/11/2016 at 1752 hours [facility] 17:47:00-00:00 HISTORY: 71-year-old man with line placement. Center [...]
[2022-07-23 16:32] LABS: Absolute Lymphocytes (CBC) 1.6 K/uL (0.7-4.9); Hematocrit 29.9 % (39.6-49.0); MCV 97.1 fL (80-100); MPV 7.5 fL (7.6-11.3); RBC Red Blood Cell Count 3.08 M/uL (4.33-5.43)
[2022-07-23 16:34] LABS: Protime INR 1.85
[2022-07-23 16:50] LABS: Albumin 3.2 g/dL (3.4-5.0); Bilirubin Total 0.9 mg/dL (0.2-1.0); Potassium 4.2 mEq/L (3.5-5.1); Protein, Total 7.2 g/dL (6.4-8.2)
--- NOTE | 2022-07-23 17:52 | EDPHYS ---
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 Patient states he was "working in the yard" and this happens sometimes when he works a lot outside. Patient has recurrent rash and erythema on the right leg on top of chronic orthostasis. He denies any fever subjective or objective, headache, neck pain, chest pain, shortness of breath, abdominal pain, secondary rash, syncope, near syncope, decrease in urine output, or any other signs or symptoms on ROS at this time.. Historical: - Allergies: 15:51 Glucophage; cm10 15:51 metformin; cm10 15:51 steroids; cm10 - PMHx: 15:51 Diabetes - NIDDM; Diabetes - IDDM; CVA; Atrial Fib; angina pectoris; Pacemaker; cm10 Hypertension; - PSHx: 15:51 right knee; cm10 - Immunization history:: Client reports receiving the 2nd dose of the Covid vaccine. - Social history:: Smoking status: Patient reports the use of cigarette tobacco products, cigars. ROS: 16:19 Constitutional: Negative for fever, chills, and weight loss, Eyes: Negative for injury, sp3 pain, redness, and discharge, ENT: Negative for injury, pain, and discharge, Neck: Negative for injury, pain, and swelling, Cardiovascular: Negative for chest pain, palpitations, and edema, Respiratory: Negative for shortness of breath, cough, wheezing, and pleuritic chest pain, Abdomen/GI: Negative for abdominal pain, nausea, vomiting, diarrhea, and constipation, Back: Negative for injury and pain, Neuro: Negative for headache, weakness, numbness, tingling, and seizure, Psych: Negative for depression, anxiety, suicide ideation, homicidal ideation, and hallucinations, Allergy/Immunology: Negative for hives, rash, and allergies, Endocrine: Negative for neck swelling, polydipsia, polyuria, polyphagia, and marked weight changes. 16:19 All other systems are negative. Exam: 16:20 Constitutional: This is a well developed, well nourished patient who is awake, alert, sp3 and in no acute distress. Head/Face: Normocephalic, atraumatic. Eyes: Pupils equal round and reactive to light, extra-ocular motions intact. Lids and lashes normal. Conjunctiva and sclera are non-icteric and not injected. Cornea within normal limits. Periorbital areas with no swelling, redness, or edema. ENT: Nares patent. No nasal discharge, no septal abnormalities noted. External auditory canals are clear. Oropharynx with no redness, swelling, or masses, exudates, or evidence of obstruction, uvula midline. Mucous membranes moist. Neck: Trachea midline, no thyromegaly or masses palpated, and no cervical lymphadenopathy. Supple, full range of motion without nuchal rigidity, or vertebral point tenderness. No Meningismus. Chest/axilla: Normal chest wall appearance and motion. Nontender with no deformity. No lesions are appreciated. Respiratory: Lungs have equal breath sounds bilaterally, clear to auscultation and percussion. No rales, rhonchi or wheezes noted. No increased work of breathing, no retractions or nasal flaring. Abdomen/GI: Soft, non-tender, with normal bowel sounds. No distension or tympany. No guarding or rebound. No evidence of tenderness throughout. Back: No spinal tenderness. No costovertebral tenderness. Full range of motion. Neuro: Awake and alert, GCS 15, oriented to person, place, time, and situation. Cranial nerves II-XII grossly intact. Motor strength 5/5 in all extremities. Sensory grossly intact. Cerebellar exam normal. Normal gait. Psych: Awake, alert, with orientation to person, place and time. Behavior, mood, and affect are within normal limits. 16:20 ECG was reviewed by the Attending Physician. EKG demonstrates atrial fibrillation at 70 bpm with remainder intervals normal, leftward axis, nonspecific diffuse ST/T changes without evidence of acute ischemia. Vital Signs: 15:52 BP 125 / 65; Pulse 65; Resp 18; Temp 98; Pulse Ox 100% ; Weight 101.15 kg; Height 6 ft. cm10 0 in. ; Pain 7/10; 16:00 BP 128 / 63; Pulse 75; Resp 18; Pulse Ox 99% on R/A; db 17:00 BP 105 / 58; Pulse 88; Resp 18; Pulse Ox 98% on R/A; db 17:30 BP 134 / 65; Pulse 59; Resp 16; Pulse Ox 100% on R/A; db 18:30 BP 141 / 77; Pulse 65; Resp 16; Pulse Ox 100% on R/A; db 19:37 BP 136 / 76; Pulse 66; Resp 16; Temp 98; Pulse Ox 100% on R/A; rv 15:52 Body Mass Index 30.24 (101.15 kg, 182.88 cm) cm10 15:52 Pain Scale: Adult cm10 [place] Score: 19:37 Eye Response: spontaneous(4). Motor Response: obeys commands(6). Verbal Response: rv oriented(5). Total: 15. MDM: 15:49 Patient medically screened. sp3 16:20 Data reviewed: vital signs, nurses notes, old medical records, lab test result(s), EKG, sp3 radiologic studies. ED course: 77-year-old male with multiple medical problems including diabetes now with recurrent cellulitis of the right lower extremity. We will obtain laboratory values including lactate, IV antibiotics and then disposition will be based on work-up on treatment at home with p.o. meds versus inpatient care.. 17:49 ED course: WBC count not elevated and patient is in no acute distress. Vital signs sp3 remain normal. Patient is not in shock. Will administer vancomycin 1 g IV x1 dose and discharge patient home on p.o. Bactrim and Bactroban cream.. 07/23 15:49 Order name: Blood Culture Adult (2) sp3 07/23 15:49 Order name: CBC with Diff; Complete Time: 17:27 sp3 07/23 15:49 Order name: CMP; Complete Time: 17:27 sp3 07/23 15:49 Order name: Lactate w/ 2H reflex if indic.; Complete Time: 17:27 sp3 07/23 15:49 Order name: Protime (+inr); Complete Time: 17:27 sp3 07/23 15:49 Order name: Cardiac monitoring; Complete Time: 16:17 sp3 07/23 15:49 Order name: IV Saline Lock - Large Bore; Complete Time: 16:17 sp3 07/23 15:49 Order name: Labs collected and sent; Complete Time: 16:17 sp3 07/23 15:49 Order name: Vital Signs; Complete Time: 16:17 sp3 Administered Medications: 17:56 Drug: vancoMYCIN IVPB 1 grams Route: IVPB; Infused Over: 2 hrs; Site: right antecubital;lizeth 19:37 Follow up: Response: No adverse reaction; IV Status: Completed infusion; IV Intake: rv 250ml Disposition Summary: 07/23/22 17:51 Discharge Ordered Location: Home sp3 Condition: Stable sp3 Diagnosis - Cellulitis of right lower limb sp3 Followup: sp3 - With: Private Physician - When: Upon discharge from the Emergency Department - Reason: Continuance of care Discharge Instructions: - Discharge Summary Sheet sp3 - Cellulitis, Adult sp3 Forms: - Medication Reconciliation Form sp3 - Thank You Letter sp3 - Antibiotic Education sp3 - Prescription Opioid Use sp3 Prescriptions: - mupirocin 2 % Topical Ointment Kit - apply 1 application by TOPICAL route 5 times per week administer after dialysis sp3 on dialysis days; 5 application; Refills: 0, Product Selection Permitted - Bactrim DS 800-160 mg Oral Tablet - take 1 tablet by ORAL route every 12 hours for 7 days; 14 tablet; Refills: 0, sp3 Product Selection Permitted Signatures: Dispatcher [employer] Jose Alfaro MD MD sp3 Risa Madden RN RN db Yvrose Henderson RN RN cm10 Kelton Webster RN rv
--- NOTE | 2022-07-23 17:52 | ER ---
Nurse's Notes [facility] Name: Ely Coley Age: 77 yrs Sex: Male : 1945 Arrival Date: 07/23/2022 Time: 15:37 Bed 4 Private MD: Dulce Shah Diagnosis: Cellulitis of right lower limb Presentation: 07/23 15:52 Chief complaint: Patient states: R lower leg cellulitis again for the past 3-4 days. No cm10 fever. Has had this the past 6 months. Coronavirus screen: Vaccine status: Patient reports receiving the 2nd dose of the covid vaccine. Client denies travel out of the [place] in the last 14 days. At this time, the client does not indicate any symptoms associated with coronavirus-19. Ebola Screen: Patient denies travel to an Ebola-affected area in the 21 days before illness onset. Initial Sepsis Screen: Does the patient meet any 2 criteria? No. Patient's initial sepsis screen is negative. Does the patient have a suspected source of infection? Yes: Skin breakdown/wound. Risk Assessment: Do you want to hurt yourself or someone else? Patient reports no desire to harm self or others. Onset of symptoms was July 19, 2022. 15:52 Method Of Arrival: Ambulatory cm10 15:52 Acuity: MITCH 3 cm10 Triage Assessment: 17:17 General: Appears in no apparent distress. comfortable, Behavior is calm, cooperative. db Historical: - Allergies: 15:51 Glucophage; cm10 15:51 metformin; cm10 15:51 steroids; cm10 - PMHx: 15:51 Diabetes - NIDDM; Diabetes - IDDM; CVA; Atrial Fib; angina pectoris; Pacemaker; cm10 Hypertension; - PSHx: 15:51 right knee; cm10 - Immunization history:: Client reports receiving the 2nd dose of the Covid vaccine. - Social history:: Smoking status: Patient reports the use of cigarette tobacco products, cigars. Screenin:13 [facility] ED Fall Risk Assessment (Adult) History of falling in the last 3 months, db including since admission No falls in past 3 months (0 pts) Confusion or Disorientation No (0 pts) Intoxicated or Sedated No (0 pts) Impaired Gait No (0 pts) Mobility Assist Device Used No (0 pt) Altered Elimination No (0 pt) Score/Fall Risk Level 0 - 2 = Low Risk Oriented to surroundings, Maintained a safe environment. Abuse screen: Denies threats or abuse. Denies injuries from another. Nutritional screening: No deficits noted. Tuberculosis screening: No symptoms or risk factors identified. Assessment: 16:12 Reassessment: Patient appears in no apparent distress at this time. Patient and/or db family updated on plan of care and expected duration. Pain level reassessed. Patient is alert, oriented x 3, equal unlabored respirations, skin warm/dry/pink. Pain:. 16:12 Pain: Complains of pain in right leg. Neuro: Level of Consciousness is awake, alert, db obeys commands, Oriented to person, place, time, situation, Speech is normal. 17:57 Reassessment: Patient appears in no apparent distress at this time. Patient and/or db family updated on plan of care and expected duration. Pain level reassessed. Patient is alert, oriented x 3, equal unlabored respirations, skin warm/dry/pink. 17:57 Reassessment: patient discharge pending Vancomycin to finish. db 18:49 Reassessment: Patient appears in no apparent distress at this time. Patient and/or db family updated on plan of care and expected duration. Pain level reassessed. Patient is alert, oriented x 3, equal unlabored respirations, skin warm/dry/pink. General: Appears in no apparent distress. comfortable, Behavior is calm, cooperative. Vital Signs: 15:52 BP 125 / 65; Pulse 65; Resp 18; Temp 98; Pulse Ox 100% ; Weight 101.15 kg; Height 6 ft. cm10 0 in. ; Pain 7/10; 16:00 BP 128 / 63; Pulse 75; Resp 18; Pulse Ox 99% on R/A; db 17:00 BP 105 / 58; Pulse 88; Resp 18; Pulse Ox 98% on R/A; db 17:30 BP 134 / 65; Pulse 59; Resp 16; Pulse Ox 100% on R/A; db 18:30 BP 141 / 77; Pulse 65; Resp 16; Pulse Ox 100% on R/A; db 19:37 BP 136 / 76; Pulse 66; Resp 16; Temp 98; Pulse Ox 100% on R/A; rv 15:52 Body Mass Index 30.24 (101.15 kg, 182.88 cm) cm10 15:52 Pain Scale: Adult cm10 [place] Score: 19:37 Eye Response: spontaneous(4). Motor Response: obeys commands(6). Verbal Response: rv oriented(5). Total: 15. ED Course: 15:43 Patient arrived in ED. im 15:43 Dulce Shah is Private Physician. im 15:44 Jose Smith MD is Attending Physician. sp3 15:50 Risa Madden, RN is Primary Nurse. db 15:51 Arm band placed on Patient placed in an exam room, on a stretcher. cm10 15:53 Triage completed. cm10 16:00 First set of blood cultures drawn. Inserted saline lock: 20 gauge in right forearm, db using aseptic technique. Blood collected. 16:14 Patient has correct armband on for positive identification. Bed in low position. Call db light in reach. Side rails up X 1. Client placed on continuous cardiac and pulse oximetry monitoring. NIBP monitoring applied. 19:37 No provider procedures requiring assistance completed. IV discontinued, intact, rv bleeding controlled, No redness/swelling at site. Pressure dressing applied. Administered Medications: 17:56 Drug: vancoMYCIN IVPB 1 grams Route: IVPB; Infused Over: 2 hrs; Site: right antecubital;db 19:37 Follow up: Response: No adverse reaction; IV Status: Completed infusion; IV Intake: rv 250ml Medication: 19:37 VIS not applicable for this client. rv Intake: 19:37 IV: 250ml; Total: 250ml. rv Outcome: 17:51 Discharge ordered by MD. beyer 19:38 Discharged to home ambulatory, with family. rv 19:38 Condition: good 19:38 Discharge instructions given to patient, Instructed on discharge instructions, follow up and referral plans. medication usage, Demonstrated understanding of instructions, follow-up care, medications, Prescriptions given X 2. 19:38 Patient left the ED. rv Signatures: Kelton Webster RN RN rv Jose Smith MD MD sp3 Risa Madden, RN Ibis Hebert Clarissa, RN RN 10
[2022-07-23] MEDS ORDERED: NA CHLORIDE 0.9% 250 ML ONE (17:58)
[2022-07-23] MEDS ORDERED: VANCOMYCIN 1 GM/VIAL ONE (17:58)
[2022-07-23 20:19] VITALS: TEMP 98
[2022-07-23 20:24] VITALS: O2SAT 100
[2022-07-23 20:28] VITALS: BP 136/76
--- NOTE | 2022-07-24 14:17 | EKG ---
Test Date: 2022-07-23 Test Time: 15:56:41 Electronic Wirer: KARI MEASUREMENT RESULTS: Intervals: Rate: 70 NE: QRSD: 118 QT: 424 QTc: 457 [place]: P: NE: QRS: -12 T: -59 INTERPRETIVE STATEMENTS: Atrial fibrillation Nonspecific intraventricular conduction delay ST & T wave abnormality, consider anterolateral ischemia Abnormal ECG Compared to ECG 06/19/2020 10:42:18 Intraventricular conduction delay now present ST (T wave) deviation now present Possible ischemia now present Ventricular premature complex(es) no longer present Myocardial infarct finding no longer present Electronically Signed On 07-24-22 14:16:06 CDT by Brandon Lange
== END 2022-07-23 19:38 | disposition home or self-care (01) ==
LOC: ER 15:37
DX: L03.115 Cellulitis of right lower limb (principal); I10 Essential (primary) hypertension; E11.9 Type 2 diabetes mellitus without complications; F17.290 Nicotine dependence, other tobacco product, uncomplicated; Z95.0 Presence of cardiac pacemaker; Z86.73 Personal history of transient ischemic attack (TIA), and cerebral infarction without residual deficits; Z88.8 Allergy status to other drugs, medicaments and biological substances
CPT/HCPCS: 96365; 93005; 87040 ×2; 85025; 36415; 85610; 83605; 80053; 99284; 96366; J7050

== ENCOUNTER 2022-08-15 15:07 | Emergency (ER) | payer OTHER ==
--- OUTSIDE RECORDS SUMMARY | 2022-08-15 15:25 | XMS REPORT | Continuity of Care Document ---
:1945 Author Organization [facility] t Address [address] [place] [address] [address] [place] [address] Care Team Providers Name Role Phone No ANP, Pcp [facility] Primary Care Physician Naida WATTS, Anuj Zepeda Attending Clinician [phone] Candida WATTS, Sonia Attending Clinician Wyatt WATTS, Gerda Garces Attending Clinician [phone] GERDA SCHNEIDER Attending Clinician Unavailable Aleksandr Duong DPM Attending Clinician Cong Leon MD Attending Clinician Eli Denny MD Attending Clinician ELI DENNY Attending Clinician Unavailable Sunny ROPER, Nia Smith Attending Clinician Unavailable ALEKSANDR DUONG Attending Clinician Unavailable Aleksandr Duong DPM Attending Clinician Eli Denny MD Attending Clinician Peg Staley Attending Clinician [phone] Fela WATTS, Suri Spencer Attending Clinician Sameer WATTS, Herbert Vogt Attending Clinician Christian Sellers MD Attending Clinician Bandar WATTS, Estephania Attending Clinician [phone] Jonas Raphael MD Attending Clinician [phone] Nona Rutherford Attending Clinician Unavailable ABIEL DELGADO Attending Clinician Unavailable Edide Roper Attending Clinician Jean Carlos Lee Attending Clinician SONIA MO Admitting Clinician Unavailable ELI DENNY Admitting Clinician Unavailable HERBERT SAENZ Admitting Clinician Unavailable ABIEL DELGADO Admitting Clinician Unavailable Eddie Roepr Admitting Clinician Jean Carlos Lee Admitting Clinician Payers Payer Name Policy Type Policy Number Effective Date Expiration Date Juanita stewart [facility] [id number] 2016 [facility] 00:00:00 Problems Condition Condition Condition Status Onset Resolution Last Treating Co mments Source Name Details Category Date Date Treatment Clinician Date Osteomyeli Osteomyeli Disease Recurre [facility] 00 [place] PAD PAD Disease Recurre 2020-[address] [facility] (periphera (periphera nce 0-04 Yuliya kes l artery l artery 00:00: Medica l disease) disease) 00 Center Right foot Right foot Disease Active [facility] pain pain [facility]-18 [facility] 00 [place] Diabetes Diabetes Disease Recurre 2016-[address] [facility] mellitus mellitus nce 2-23 [facility] 00 [place] CHF CHF Disease Recurre 2016-[address] [facility] (congestiv (congestiv nce 2-23 Y[facility]ya kes e heart e heart 00:00: Medical failure) failure) 00 Center Atrial Atrial Disease Recurre 2016-[address] [facility] [address] fibrillati fibrillati nce 2-23 Yuliya kes on on 00:00: Medical 00 [place] Tachy-chano Tachy-chano Disease Recurre 2016-[address] [facility] y syndrome y syndrome nce 2-23 Yuliya kes 00:00: Medical 00 [place] HEIDI (acute HEIDI (acute Disease Recurre 2016-[address] [facility] kidney kidney nce 2- [facility] injury) injury) 00:00: Medical 00 [place] Hypertensi Hypertensi Disease Active 2016-[address] on on - [facility] 00:[facility]: Medical 00 [place] 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- [facility] 00:00: Medical 00 [place] Pneumonia Pneumonia Disease Active 2016-[address] [facility] 2- [facility] 00[facility] Medical 00 Center PAROXYSMAL PAROXYSMA Diagnosis Active 2016-09-14 [facility] AFIB, L AFIB, 08-28 10:10:00 l BRADYCARDI BRADYCARDI 00:00: He urla A A Active 00 08/28/2016 [facility] CCL/DUAL CCL/DUAL Diagnosis Active 2016-08-31 [facility] PMAKER PMAKER 08-28 15:00:00 l IMPLANT/BS IMPLANT/BS 00:00: He rula /DX: /DX: 00 I48.0--PA I48.0--PA Active 08/28/2016 [facility] 362.56 362.56 Diagnosis Active 2014-06-04 Me moria EPIRETINAL EPIRETINAL 02-14 10:13:00 l MEMBRANE MEMBRANE 00:00: Pepe smith LEFT EYE LEFT EYE 00 Active 02/14/2014 [facility] Syncope Syncope Problem Resolve 2016-09-15 M emoria (disorder) (disorder) d 00:18:55 l Resolved Jamul Problem 09/15/2016 [facility] Bradycardi Bradycard Problem Resolve 2016-09-15 Memoria a ia d 00:18:55 l (disorder) (disorder) He rmann Resolved Problem 09/15/2016 [facility] Chest pain Chest Problem Resolve 2016-09-15 Memoria (finding) pain d 00:18:55 l (finding) Jamul Resolved Problem 09/15/2016 [facility] Cerebrovas Cerebrova Problem Resolve 2016-09-15 Memoria cular scular d 00:18:55 l accident accident Pepe n (disorder) (disorder) Resolved Problem 09/15/2016 [facility] Dizziness Dizziness Problem Resolve 2016-09-15 Memoria (finding) (finding) d 00:18:55 l Resolved Jamul Problem 09/15/2016 [facility] Edema Edema Problem Resolve 2016-09-15 Niko og (finding) (finding) d 00:18:55 l Resolved Tino Problem 09/15/2016 [facility] Allergies, Adverse Reactions, Alerts Allergy Allergy Status Severity Reaction(s) Onset Inactive Treating Comm ents Source Name Type Date Date Clinician Metformi Propensi Active Pt states [facility] to [facility] is not [facility] adverse 00:00: allergic Medical reaction 00 to Center s anything Metoprol Propensi Active Pt states [facility] to 5-18 not [facility] adverse 00:00: allergic Medical reaction 00 to Center s anything METFORMI Allergy Active [facility] N 5-18 [facility] Medical 00 Center METOPROL Allergy Active [facility] OL 5-18 [facility] Medical 00 Center NO KNOWN Allergy Active [facility] S NKFA NKFA Active Lupe Jiménez Family History Family Member Diagnosis Comments Start Date Stop Date Source Natural brother Cancer [facility] Natural brother Diabetes [facility] Natural brother Hypertension [facility] Natural mother Heart disease [facility] Natural sister Hypertension [facility] Social History Social Habit Start Date Stop Date Quantity Comments Source History of tobacco Current sm[facility]OH [facility] Alcohol intake 2021-06-04 2021-06-[address] [facility] 00:[facility]:00 00:00:00 non-drinker of Medical Ce nter alcohol (finding) History SDOH 2021-05-31 2021-05-[address] [facility] Unable to 00:00:00 00:00:00 Medical Center Pay History SDOH 2021-05-31 2021-05-[address] [facility] Homeless 00:00:00 00:00:00 Medical Center Last Year History SDOH 2021-05-31 2021-05-[address] [facility] Transport Med 00:00:00 00:00:[address] Tobacco Comment 2020-06-26 2020-06-26 quit [address] [facility] 00:[facility]00 00:00[facility]00 [facility] Tobacco use and 2020-06-26 2020-06-[address] [facility] exposure 00:00:00 00:00:00 non-user Medical Center Social History 2014-03-05 2014-03-05 [facility] 17:12:04 17:12:04 Sex Assigned At [address] Yuliya kes 00:00:00 00:00:[address] [facility] Smoking Status Start Date Stop Date Source Ex-smoker 2020-06-26 00:00:00 2020-06-26 00:00:00 [facility] Medications Ordered Filled Start Stop Current Ordering Indication Dosage Frequency Signature Comments Components Source Medication Medication Date Date Medication? Clinician (SIG) Name Name mupirocin 2021- No 1g QD Apply [address] (BACTROBAN) 06-06 topically Yuliya kes 2 % 00:00: 23:59 daily for Medical ointment 00 :00 7 days. [place] mupirocin 2021- No 1g QD Apply [address] (BACTROBAN) 06-06- topically Yuliya kes 2 % 00:00: 23:59 daily for Medical ointment 00 :00 7 days. [place] mupirocin 2021- No 1g QD Apply [address] (BACTROBAN) 06-06 topically Yuliya kes 2 % 00:00: 23:59 daily for Medical ointment 00 :00 7 days. [place] mupirocin 2021- No 1g QD Apply [address] (BACTROBAN) 06-06 topically Yuliya kes 2 % 00:00: 23:59 daily for Medical ointment 00 :00 7 days. [place] amiodarone Yes 200mg QD Take [address] (PACERONE) 4-28 mg by [facility] 200 MG 17:01: mouth Medical tablet 40 daily. [place] spironolact Yes 25mg Q.5D Take [address] one 4-28 by mouth 2 [facility] (ALDACTONE) 17:01: (two) Medic al 25 MG 40 times Center tablet daily. multivitami 0 Yes 1{capsu QD Take [address] n capsule 4-28 le} capsule by Luke s 17:01: mouth Medical 40 daily. Center sertraline 2021-0 Yes 25mg QD Take [address] (ZOLOFT) 25 4-28 by mouth Luke s MG tablet 17:01: daily. Medica l 40 Center amiodarone 2021-0 Yes 200mg QD Take [address] (PACERONE) 4-28 mg by [facility] 200 MG 17:01: mouth Medical tablet 40 daily. Center spironolact 2021-0 Yes 25mg Q.5D Take [address] [facility] one 4-28 by mouth 2 [facility] (ALDACTONE) 17:01: (two) Medic al 25 MG 40 times Center tablet daily. multivitami 0 Yes 1{capsu QD Take [address] n capsule 4-28 le} capsule by Luke s 17:01: mouth Medical 40 daily. Center sertraline 2021-0 Yes 25mg QD Take [address] (ZOLOFT) 25 4-28 by mouth Luke s MG tablet 17:01: daily. Medica l 40 [place] amiodarone 2021-0 Yes 200mg QD Take [address] (PACERONE) 4-28 mg by [facility] 200 MG 17:01: mouth Medical tablet 40 daily. Center spironolact 2021-0 Yes 25mg Q.5D Take [address] [facility] [facility] one 4-28 by mouth 2 [facility] (ALDACTONE) 17:01: (two) Medic al 25 MG 40 times Center tablet daily. multivitami 0 Yes 1{capsu QD Take [address] n capsule 4-28 le} capsule by Luke s 17:01: mouth Medical 40 daily. Center sertraline 2021-0 Yes 25mg QD Take [address] (ZOLOFT) 25 4-28 by mouth Luke s MG tablet 17:01: daily. Medica l 40 [place] amiodarone 2021-0 Yes 200mg QD Take [address] (PACERONE) 4-28 mg by [facility] 200 MG 17:01: mouth Medical tablet 40 daily. Center spironolact 2022-0 Yes 25mg Q.5D Take [address] [facility] one 4-28 by mouth 2 [facility] (ALDACTONE) 17:01: (two) Medic al 25 MG 40 times Center tablet daily. multivitami Yes 1{capsu QD Take [address] n capsule 4-28 le} capsule by Luke s 17:01: mouth Medical 40 daily. Center sertraline 0 Yes 25mg QD Take [address] (ZOLOFT) 25 4-28 by mouth Luke s MG tablet 17:01: daily. Medica l 40 [place] amiodarone 0 Yes 200mg QD Take [address] (PACERONE) 4-28 mg by [facility] 200 MG 17:01: mouth Medical tablet 40 daily. Center spironolact 0 Yes 25mg Q.5D Take [address] [facility] [facility] one 4-28 by mouth 2 [facility] (ALDACTONE) 17:01: (two) Medic al 25 MG 40 times Center tablet daily. multivitami Yes 1{capsu QD Take [address] n capsule 4-28 le} capsule by Luke s 17:01: mouth Medical 40 daily. Center sertraline 0 Yes 25mg QD Take [address] (ZOLOFT) 25 4-28 by mouth Luke s MG tablet 17:01: daily. Medica l 40 [place] amiodarone 0 Yes 200mg QD Take [address] (PACERONE) 4-28 mg by [facility] 200 MG 17:01: mouth Medical tablet 40 daily. Center spironolact 0 Yes 25mg Q.5D Take [address] [facility] one 4-28 by mouth 2 [facility] (ALDACTONE) 17:01: (two) Medic al 25 MG 40 times Center tablet daily. multivitami Yes 1{capsu QD Take [address] n capsule 4-28 le} capsule by Luke s 17:01: mouth Medical 40 daily. Center sertraline 2021-0 Yes 25mg QD Take [address] (ZOLOFT) 25 4-28 by mouth Luke s MG tablet 17:01: daily. Medica l 40 Center amiodarone 2021-0 Yes 200mg QD Take [address] (PACERONE) 4-28 mg by [facility] 200 MG 17:01: mouth Medical tablet 40 daily. [place] spironolact Yes 25mg Q.5D Take [address] [facility] one -28 by mouth 2 [facility] (ALDACTONE) 17:01: (two) Medic al 25 MG 40 times Center tablet daily. multivitami Yes 1{capsu QD Take [address] n capsule 06-05 le} capsule by Luke s 17:01: mouth Medical 40 daily. [place] sertraline Yes 25mg QD Take [address] (ZOLOFT) 25 -28 by mouth Luke s MG tablet 17:01: daily. Medica l 40 [place] glipiZIDE 2021- No 5mg QD Take [address] (GLUCOTROL) -05 06- by mouth Cl es 10 MG 07:57: 00:00 daily . Medical tablet 25 :00 [place] glipiZIDE 2021- No 5mg QD Take [address] (GLUCOTROL) 06-05- by mouth Cl es 10 MG 07:57: 00:00 daily . Medical tablet 25 :00 [place] glipiZIDE 2021- No 5mg QD Take [address] (GLUCOTROL) -05 06- by mouth Cl es 10 MG 07:57: 00:00 daily . Medical tablet 25 :00 [place] glipiZIDE 2021- No 5mg QD Take [address] (GLUCOTROL) -05 06- by mouth Cl es 10 MG 07:57: 00:00 daily . Medical tablet 25 :00 [place] HYDROcodone Yes 1{tbl} Take [address] -acetaminop 4-28 tablet by Cl es hen (NORCO 00:00: mouth Medica l 5-325) 00 every 6 Center 5-325 mg (six) per tablet hours as needed for Pain. Max Daily Amount: 4 tablets HYDROcodone Yes 1{tbl} Take 1 CH [facility] [...] Pain. Max Daily Amount: 4 tablets aspirin 81 2022-0 2023- No 81mg QD Take [address] [facility] [address] MG chewable 4-28 04-28 tablet (81 L ukes tablet 00:00: 23:59 mg total) Medic al 00 :00 by mouth Center daily. aspirin 81 2022-0 2023- No 81mg QD Take [address] [facility] MG chewable 4-28 04-28 tablet (81 L ukes tablet 00:00: 23:59 mg total) Medic al 00 :00 by mouth Center daily. aspirin 81 2022-0 2023- No 81mg QD Take [address] [facility] MG chewable 4-28 04-28 tablet (81 L ukes tablet 00:00: 23:59 mg total) Medic al 00 :00 by mouth Center daily. aspirin 81 2022- No 81mg QD Take [address] [facility] MG chewable 4-28 -28 tablet (81 L ukes tablet 00:00: 23:59 mg total) Medic al 00 :00 by mouth Center daily. aspirin 81 2021-0 2022- No 81mg QD Take [address] [facility] MG chewable 4-28 04-28 tablet (81 L ukes tablet 00:00: 23:59 mg total) Medic al 00 :00 by mouth Center daily. aspirin 81 0 2022- No 81mg QD Take [address] [facility] MG chewable 4-28 04-28 tablet (81 L ukes tablet 00:00: 23:59 mg total) Medic al 00 :00 by mouth Center daily. aspirin 81 0 2022- No 81mg QD Take [address] [facility] MG chewable 4-28 -28 tablet (81 L ukes tablet 00:00: 23:59 mg total) Medic al 00 :00 by mouth Center daily. amoxicillin 2021- No 500mg Q.5D Take 1 [...] Q.5D Take [address] (AMOXIL) 4- 05-05 tablet [facility] 500 MG 00:00: 23:59 (500 mg Medical tablet 00 :00 total) by Center mouth 2 (two) times daily for 7 days. docusate 2020-02- No 100mg Q.5D Take [address] sodium 0-04 10-04 mg by [facility]ukes (COLACE) 08:37: 00:00 mouth 2 Medic al 100 MG 27 :00 (two) Center capsule times daily. glipiZIDE Yes 5mg QD Take 5 mg [...] Take [address] -acetaminop 5-28 -28 tablet by Yuliya birmingham (NORCO 00:00: 00:00 mouth Medic al 5-325) 00 :00 every 6 Center 5-325 mg (six) per tablet hours as needed for Pain. Max Daily Amount: 4 tablets HYDROcodone 2021- No 1{tbl} Take [address] -acetaminop 5-28 -28 tablet by Yuliya birmingham (NORCO 00:00: 00:00 mouth Medic al 5-325) 00 :00 every 6 Center 5-325 mg (six) per tablet hours as needed for Pain. Max Daily Amount: 4 tablets senna-docus 2020- No 1{tbl} Take [address] ate 5-05 08-27 tablet by [facility] (SENOKOT S) 00:00: 23:59 mouth Medi park 8.6-50 mg 00 :00 every Center per tablet night as needed for Constipati on for up to 30 days. senna-docus 2020- No 1{tbl} Take [address] ate 5-28 -27 tablet by [facility] (SENOKOT S) 00:00: 23:59 mouth Medi park 8.6-50 mg 00 :00 every Center per tablet night as needed for Constipati on for up to 30 days. amoxicillin 2020- No 1{tbl} Take [address] -clavulanat -28 -04 tablet by Yuliya chun e 00:00: 23:59 mouth Medical (AUGMENTIN) 00 :00 every 12 Cent er 875-125 mg (twelve) per tablet hours for 7 days. doxycycline 2020- No 100mg Take [address] (MONODOX) -05 08-04 capsule [facility] 100 MG 00:00: 23:59 (100 mg Medical capsule 00 :00 total) by Center mouth every 12 (twelve) hours for 7 days. amoxicillin 2020- No 1{tbl} Take [address] -clavulanat 5-28 06-04 tablet by Yuliya muir 00:00: 23:59 mouth Medical (AUGMENTIN) 00 :00 every 12 Cent er 875-125 mg (twelve) per tablet hours for 7 days. doxycycline 2020- No 100mg Take [address] (MONODOX) 07-05 06-04 capsule [facility] 100 MG 00:00: 23:59 (100 [...] Q.5D Take 2.[address] [facility] MG tablet 5-09 04-28 mg by [facility] 00:00: 00:00 mouth 2 Medical 00 :00 (two) Center times daily . Eliquis 2.5 2021- No 2.5mg Q.5D Take 2.[address] [facility] MG tablet 5-09 04-28 mg by [facility] 00:00: 00:00 mouth 2 Medical 00 :00 (two) Center times daily . gabapentin Yes 100mg Q.[id number] Take [address] [facility] (NEURONTIN) 5-08 [id number] mg by L ukes 100 MG 00:00: 3D mouth 3 Medical capsule 00 (three) Center times daily . gabapentin 2021-0 Yes 100mg Q.[id number] Take [address] [facility] [address] (NEURONTIN) 5-08 [id number] mg by L ukes 100 MG 00:00: 3D mouth 3 Medical capsule 00 (three) Center times daily . gabapentin 2021-0 Yes 100mg Q.[id number] Take [address] (NEURONTIN) 5-08 [id number] mg by L ukes 100 MG 00:00: 3D mouth 3 Medical capsule 00 (three) Center times daily . gabapentin 2021-0 Yes 100mg Q.[id number] Take [address] (NEURONTIN) 5-08 [id number] mg by L ukes 100 MG 00:00: 3D mouth 3 Medical capsule 00 (three) Center times daily . gabapentin 2021-0 Yes 100mg Q.[id number] Take [address] [facility] (NEURONTIN) 5-08 [id number] mg by L ukes 100 MG 00:00: 3D mouth 3 Medical capsule 00 (three) Center times daily . gabapentin 2021-0 Yes 100mg Q.[id number] Take [address] (NEURONTIN) 5-08 [id number] mg by L ukes 100 MG 00:00: 3D mouth 3 Medical capsule 00 (three) Center times daily . gabapentin 2021-0 Yes 100mg Q.[id number] Take [address] (NEURONTIN) 5-08 [id number] mg by L ukes 100 MG 00:00: 3D mouth 3 Medical capsule 00 (three) Center times daily . gabapentin 202-0 Yes 100mg Q.[id number] Take [address] (NEURONTIN) 5-08 [id number] mg by L ukes 100 MG 00:00: 3D mouth 3 Medical capsule 00 (three) Center times daily . HYDROcodone 2020-2020- No 1{tbl} Take [address] -acetaminop 06-15 tablet by Yuliya birmingham (NORCO 00:00: 00:00 mouth Medic al 5-325) 00 :00 every 6 Center 5-325 mg (six) per tablet hours as needed . HYDROcodone 2020-2020- No 1{tbl} Take [address] -acetaminop 06-1528 tablet by Yuliya birmingham (NORCO 00:00: 00:00 [...] Diltiazem 2017-0 No 60 mg, Memori a 09-13 Route: PO, l 14:00: Drug form: Tino 00 TAB, Daily, Dosing Weight 116.364, kg, Start date: 09/13/16 9:00:00 CDT, Duration: 30 day, Stop date: 10/12/16 9:00:00 CDT Diltiazem 2017-0 No 60 mg, Memori a 09-13 Route: PO, l 14:00: Drug form: Jamul 00 TAB, Daily, Dosing Weight 116.364, kg, Start date: 09/13/16 9:00:00 CDT, Duration: 30 day, Stop date: 10/12/16 9:00:00 CDT Diltiazem 2017-0 No 60 mg, Memori a 09-13 Route: PO, l 14:00: Drug form: Tino 00 TAB, Daily, Dosing Weight 116.364, kg, Start date: 09/13/16 9:00:00 CDT, Duration: 30 day, Stop date: 10/12/16 9:00:00 CDT Diltiazem 2017-0 No 60 mg, Memori a 8 Route: PO, l 14:00: Drug form: Jamul 00 TAB, Daily, Dosing Weight 116.364, kg, [...] 8 Route: PO, l 14:00: Drug form: Jamul 00 TAB, Daily, Dosing Weight 116.364, kg, [...] 8- Route: PO, l 14:00: Drug form: Jamul 00 TAB, Daily, Dosing Weight 116.364, kg, Start date: 09/13/16 9:00:00 CDT, Duration: 30 day, Stop date: 10/12/16 9:00:00 CDT metoprolol 2017-0 No Notes: Memor ia tartrate 09-13 (Same as: l 02:00: Lopressor) metoprolol 2016-0 No Notes: Memor ia tartrate 09-13 (Same as: l 02:00: Lopressor) metoprolol No Notes: Memor ia tartrate 8-06 (Same as: l 02:00: Lopressor) metoprolol No Notes: Memor ia tartrate 8-06 (Same as: l 02:00: Lopressor) metoprolol No Notes: Memor ia tartrate 8- (Same as: l 02:00: Lopressor) metoprolol No Notes: Memor ia tartrate 8- (Same as: l 02:00: Lopressor) metoprolol No Notes: Memor ia tartrate 8-06 (Same as: l 02:00: Lopressor) metoprolol No Notes: Memor ia tartrate 8-06 (Same as: l 02:00: Lopressor) Insulin No 60 units) Niko og regular 09-12 WASTE: F/P l 19:37: - Black; E Jamul 00 - Municipal Trash Bin Stable for 28 days at room temperatur e Expires in days from ____Date Insulin 2017-0 No 60 units) Niko og regular 09-12 WASTE: F/P l 19:37: - Black; E Tino 00 - [facility] Trash Bin Stable for 28 days at room temperatur e Expires in days from ____Date Insulin 2017-0 No 60 units) Niko og regular 8 WASTE: F/P l 19:37: - Black; E Tino 00 - [facility] Trash Bin Stable for 28 days at room temperatur e Expires in days from ____Date Insulin 2017-0 No 60 units) Niko og regular 8 WASTE: F/P l 19:37: - Black; E Jamul 00 - [facility] Trash Bin Stable for 28 days at room temperatur e Expires in days from ____Date Insulin 2017-0 No 60 units) Niko og regular 8 WASTE: F/P l 19:37: - Black; E Jamul 00 - [facility] Trash Bin Stable for [...] 0 30 MG Oral Refill(s) Tablet Dextrose 2017-0 No 25 gm, 50 Niko [...] 8-05 mL, Route: l 16:50: IVP, Drug Jamul 00 Form: INJ, Dosing Weight 116.364, kg, [...] 8-05 mL, Route: l 16:50: IVP, Drug Jamul 00 Form: INJ, Dosing Weight 116.364, kg, [...] CDT Glucagon 2017-0 No 1 mg, Memoria 8- Route: IM, l 16:50: Drug form: Jamul 00 PDR/INJ, PRN, Dosing Weight 116.364, kg, PRN Blood Glucose Results, Start date: 09/12/16 11:50:00 CDT, Duration: 30 day, Stop date: 10/12/16 11:49:00 CDT Dextrose 2017-0 No 25 gm, 50 Niko og 50% Syringe 8-05 mL, Route: l 16:50: IVP, Drug Jamul 00 Form: INJ, Dosing Weight 116.364, kg, [...] 8-05 mL, Route: l 16:50: IVP, Drug Jamul 00 Form: INJ, Dosing Weight 116.364, kg, PRN, PRN Blood Glucose Results, Start date: 09/12/16 11:50:00 CDT, Duration: 30 day, Stop date: 10/12/16 11:49:00 CDT Glucagon 2017-0 No 1 mg, Memoria 8 Route: IM, l 16:50: Drug form: Jamul 00 PDR/INJ, PRN, Dosing Weight 116.364, kg, PRN Blood Glucose Results, Start date: 09/12/16 11:50:00 CDT, Duration: 30 day, Stop date: 10/12/16 11:49:00 CDT Dextrose 2017-0 No 25 gm, 50 Niko og 50% Syringe 8-05 mL, Route: l 16:50: IVP, Drug Jamul 00 Form: INJ, Dosing Weight 116.364, kg, PRN, PRN Blood Glucose Results, Start date: 09/12/16 11:50:00 CDT, Duration: 30 day, Stop date: 10/12/16 11:49:00 CDT Glucagon 2016- No 1 mg, Memoria 09-12 Route: IM, l 16:50: Drug form: Jamul 00 PDR/INJ, PRN, Dosing Weight 116.364, kg, PRN Blood Glucose Results, Start date: 09/12/16 11:50:00 CDT, Duration: 30 day, Stop date: 10/12/16 11:49:00 CDT valsartan 2016-0 No Notes: Memori a 8-05 Same as l 14:00: Diovan Tino 00 valsartan 2016-0 No Notes: Memori a 8-05 Same as l 14:00: Diovan Tino valsartan 2016-0 No Notes: Memori a 8-05 Same as l 14:00: Diovan Tino 00 valsartan 2016-0 No Notes: Memori a 8-05 Same as l 14:00: Diovan Tino 00 valsartan 2016-0 No Notes: Memori a 8-05 Same as l 14:00: Diovan Tino 00 valsartan 2016-0 No Notes: Memori a 8-05 Same as l 14:00: Diovan Tino 00 valsartan 2016-0 No Notes: Memori a 8-05 Same as l 14:00: Diovan Jamul 00 valsartan 2016-0 No Notes: Memori a 8-05 Same as l 14:00: Diovan Jamul 00 Cefazolin 2016-0 No Notes: Memori a 09-12 (Same As: l 04:00: Ancef, Jamul 00 Kefzol) MEDICATION WASTE Product Size: 1000 mg Product Wasted: _0_ mg Cefazolin 2016-0 No Notes: Memori a 09-12 (Same As: l 04:00: Ancef, Jamul 00 Kefzol) MEDICATION WASTE Product Size: 1000 mg Product Wasted: _0_ mg Cefazolin 2016- No Notes: Memori a 09-12 (Same As: l 04:00: Ancef, Jamul 00 Kefzol) MEDICATION WASTE Product Size: 1000 mg Product Wasted: _0_ mg Cefazolin 2016- No Notes: Memori a 09-12 (Same As: l 04:00: Ancef, Jamul 00 Kefzol) MEDICATION WASTE Product Size: 1000 mg Product Wasted: _0_ mg Cefazolin No Notes: Memori a 09-12 (Same As: l 04:00: Ancef, Tino 00 Kefzol) MEDICATION WASTE Product Size: 1000 mg Product Wasted: _0_ mg Cefazolin 2016- No Notes: Memori a 09-12 (Same As: l 04:00: Ancef, Jamul 00 Kefzol) MEDICATION WASTE Product Size: 1000 mg Product Wasted: _0_ mg Cefazolin No Notes: Memori a 09-12 (Same As: l 04:00: Ancef, Tino 00 Kefzol) MEDICATION WASTE Product Size: 1000 mg Product Wasted: _0_ mg Cefazolin No Notes: Memori a 09-12 (Same As: l 04:00: Ancef, Jamul 00 Kefzol) MEDICATION WASTE Product Size: 1000 mg Product Wasted: _0_ mg Calcium 2016- No Notes: Memoria Gluconate 09-12 WASTE: F/P l 03:33: - Sink; E - Municipal Trash Bin Magnesium No Notes: Memori a Oxide 09-12 (Same as: l 03:33: Mag-Ox Tino 400) Magnesium oxide [id number] g elemental magnesium Dose=____m g magnesium oxide (___mg elemental magnesium) Magnesium No Notes: Memori a Sulfate 09-12 WASTE: F/P l 03:33: - Sink; E Jamul - Municipal Trash Bin sodium No 15 mmol, 5 Memor ia phosphate -05 mL, Route: l 03:33: IVPB, PRN, Dosing Weight 116.364, kg, PRN Abnormal Lab Result, For NON-ICU Patients Only., Start date: 09/11/16 22:33:00 CDT, Duration: 30 day, Stop date: 10/11/16 22:32:00 CDT Potassium No Notes: Memori a Chloride 8-05 (Same as: l 03:33: KCL) Jamul 00 Infuse over 2 hours. potassium No [...] WASTE: F/P l 03:33: - Sink; E Jamul 00 - [facility] Trash Bin Magnesium No Notes: Memori a Oxide - (Same as: l 03:33: Mag-Ox Tino 00 400) Magnesium oxide [id number] g elemental magnesium Dose=____m g magnesium oxide (___mg elemental magnesium) Magnesium No Notes: Memori a Sulfate 09-12 WASTE: F/P l 03:33: - Sink; E - [facility] Trash Bin sodium No 15 mmol, 5 Memor ia phosphate 8-05 mL, Route: l 03:33: IVPB, PRN, Jamul 00 Dosing Weight 116.364, kg, PRN Abnormal Lab Result, For NON-ICU Patients Only., Start date: 09/11/16 22:33:00 CDT, Duration: 30 day, Stop date: 10/11/16 22:32:00 CDT Potassium No Notes: Memori a Chloride 8-05 (Same as: l 03:33: KCL) Jamul 00 Infuse over 2 hours. potassium No Notes: Memori a phosphate-s 8-05 (Same as: l odium 03:33: Phos-NaK) Tino phosphate 00 Each 1.5 250 mg-280 gm pkt has mg-160 mg 250mg oral powder phosphorou for s. Mix reconstitut w/2.5oz ion water and stir. potassium No Notes: Memori a phosphate 8-05 (Same as: l 03:33: K Jamul Phosphate. ) 1 mMol phoshate has 1.47 mEq potassium Infuse over 4 hours Calcium No Notes: Memoria Gluconate 8-05 WASTE: F/P l 03:33: - Sink; E Tino - Municipal Trash Bin Magnesium No Notes: Memori a Oxide 8-05 (Same as: l 03:33: Mag-Ox Jamul 400) Magnesium oxide [id number] g elemental magnesium Dose=____m g magnesium oxide (___mg elemental magnesium) Magnesium No Notes: Memori a Sulfate 8-05 WASTE: F/P l 03:33: - Sink; E Tino 00 - [employer] Trash Bin sodium No 15 mmol, 5 Memor ia phosphate 8-05 mL, Route: l 03:33: IVPB, PRN, Tino 00 Dosing Weight 116.364, kg, PRN Abnormal Lab Result, For NON-ICU Patients Only., Start date: 09/11/16 22:33:00 CDT, Duration: 30 day, Stop date: 10/11/16 22:32:00 CDT Potassium No Notes: Memori a Chloride 8-05 (Same as: l 03:33: KCL) 00 Infuse over 2 hours. potassium No Notes: Memori a phosphate-s 8-05 (Same as: l odium 03:33: Phos-NaK) Jamul phosphate 00 Each 1.5 250 mg-280 gm pkt has mg-160 mg 250mg oral powder phosphorou for s. Mix reconstitut w/2.5oz ion water and stir. potassium No Notes: Memori a phosphate 8-05 (Same as: l 03:33: K Jamul Phosphate. ) 1 mMol phoshate has 1.47 mEq potassium Infuse over 4 hours Calcium No Notes: Memoria Gluconate 8-05 WASTE: F/P l 03:33: - Sink; E Jamul - [employer] Trash Bin Magnesium No Notes: Memori a Oxide 8-05 (Same as: l 03:33: Mag-Ox Tino 400) Magnesium oxide 430ll=754j g elemental magnesium Dose=____m g magnesium oxide (___mg elemental magnesium) Magnesium No Notes: Memori a Sulfate 09-12 WASTE: F/P l 03:33: - Sink; E Jamul - [employer] Trash Bin sodium No 15 mmol, 5 Memor ia phosphate 8-05 mL, Route: l 03:33: IVPB, PRN, Tino Dosing Weight 116.364, kg, PRN Abnormal Lab Result, For NON-ICU Patients Only., Start date: 09/11/16 22:33:00 CDT, Duration: 30 day, Stop date: 10/11/16 22:32:00 CDT Potassium No Notes: Memori a Chloride 8-05 (Same as: l 03:33: KCL) Jamul 00 Infuse over 2 hours. potassium No Notes: Memori a phosphate-s - (Same as: l odium 03:33: Phos-NaK) Jamul phosphate 00 Each 1.5 250 mg-280 gm pkt has mg-160 mg 250mg oral powder phosphorou for s. Mix reconstitut w/2.5oz ion water and stir. potassium No Notes: Memori a phosphate 09-12 (Same as: l 03:33: K Jamul Phosphate. ) 1 mMol phoshate has 1.47 mEq potassium Infuse over 4 hours Calcium No Notes: Memoria Gluconate 09-12 WASTE: F/P l 03:33: - Sink; E Tino 00 - [employer] Trash Bin Magnesium No Notes: Memori a Oxide 09-12 (Same as: l 03:33: Mag-Ox Tino 00 400) Magnesium oxide 852mw=200e g elemental magnesium Dose=____m g magnesium oxide (___mg elemental magnesium) Magnesium No Notes: Memori a Sulfate 09-12 WASTE: F/P l 03:33: - Sink; E Jamul - [employer] Trash Bin sodium No 15 mmol, 5 Memor ia phosphate 8-05 mL, Route: l 03:33: IVPB, PRN, Jamul 00 Dosing Weight 116.364, kg, PRN Abnormal Lab Result, For NON-ICU Patients Only., Start date: 09/11/16 22:33:00 CDT, Duration: 30 day, Stop date: 10/11/16 22:32:00 CDT Potassium No Notes: Memori a Chloride 8-05 (Same as: l 03:33: KCL) Jamul 00 Infuse over 2 hours. potassium No [...] Bin Magnesium No Notes: Memori a Oxide - (Same as: l 03:33: Mag-Ox Tino 00 400) Magnesium oxide 908ft=307e g elemental magnesium Dose=____m g magnesium oxide (___mg elemental magnesium) Magnesium No Notes: Memori a Sulfate 09-12 WASTE: F/P l 03:33: - Sink; E - [employer] Trash Bin sodium No 15 mmol, 5 Mem[facility] ia phosphate 8-05 mL, Route: l 03:33: IVPB, PRN, Tino Dosing Weight 116.364, kg, PRN Abnormal Lab Result, For NON-ICU Patients Only., Start date: 09/11/16 22:33:00 CDT, Duration: 30 day, Stop date: 10/11/16 22:32:00 CDT Potassium No Notes: Memori a Chloride 8-05 (Same as: l 03:33: KCL) Jamul 00 Infuse over 2 hours. potassium No [...] l 03:33: Mag-Ox Tino 400) Magnesium oxide 054kf=702x g elemental magnesium Dose=____m g magnesium oxide (___mg elemental magnesium) Magnesium No Notes: Memori a Sulfate 8- WASTE: F/P l 03:33: - Sink; E - [employer] Trash Bin sodium No 15 mmol, 5 Memor ia phosphate 8-05 mL, Route: l 03:33: IVPB, PRN, Jamul 00 Dosing Weight 116.364, kg, PRN Abnormal Lab Result, For NON-ICU Patients Only., Start date: 09/11/16 22:33:00 CDT, Duration: 30 day, Stop date: 10/11/16 22:32:00 CDT Potassium No Notes: Memori a Chloride 8-05 (Same as: l 03:33: KCL) Infuse over 2 hours. potassium No Notes: Memori a phosphate-s 8-05 (Same as: l odium 03:33: Phos-NaK) Jamul phosphate 00 Each 1.5 250 mg-280 gm pkt has mg-160 mg 250mg oral powder phosphorou for s. Mix reconstitut w/2.5oz ion water and stir. potassium No Notes: Memori a phosphate 8-05 (Same as: l 03:33: K Jamul Phosphate. ) 1 mMol phoshate has 1.47 mEq potassium Infuse over 4 hours Calcium No Notes: Memoria Gluconate 8-05 WASTE: F/P l 03:33: - Sink; E Jamul 00 - [employer] Trash Bin Magnesium No Notes: Memori a Oxide 8-05 (Same as: l 03:33: Mag-Ox Jamul 400) Magnesium oxide 402va=688g g elemental magnesium Dose=____m g magnesium oxide (___mg elemental magnesium) Magnesium No Notes: Memori a Sulfate 8-05 WASTE: F/P l 03:33: - Sink; E Jamul 00 - [employer] Trash Bin sodium No 15 mmol, 5 Memor ia phosphate 8-05 mL, Route: l 03:33: IVPB, PRN, Jamul Dosing Weight 116.364, kg, PRN Abnormal Lab [...] WASTE: F/P l 03:22: - Sink; E - [employer] Trash Bin Magnesium No Notes: Memori a Sulfate 8-05 WASTE: F/P l 03:22: - Sink; E Jamul - [employer] Trash Bin Magnesium No Notes: Memori a Sulfate 8-05 WASTE: F/P l 03:22: - Sink; E Jamul - [employer] Trash Bin Magnesium No Notes: Memori a Sulfate 8-05 WASTE: F/P l 03:22: - Sink; E Tino 00 - [employer] Trash Bin Magnesium No Notes: Memori a Sulfate 8-05 WASTE: F/P l 03:22: - Sink; E Tino - [employer] Trash Bin Magnesium No Notes: Memori a Sulfate 8-05 WASTE: F/P l 03:22: - Sink; E Jamul - [employer] Trash Bin Magnesium No Notes: Memori a Sulfate 8-05 WASTE: F/P l 03:22: - Sink; E Tino - [employer] Trash Bin Magnesium No Notes: Memori a Sulfate 8-05 WASTE: F/P l 03:22: - Sink; E Tino - [employer] Trash Bin Magnesium No Notes: Memori a Sulfate 8-05 WASTE: F/P l 03:21: - Sink; E Jamul - [employer] Trash Bin Potassium No Notes: Memori a Chloride 8-05 (Same as: l 03:21: K-Dur 20) Jamul "Do Not Crush" With food and full [...] 8-05 (Same as: l 03:21: K-Dur 20) Jamul 00 "Do Not Crush" With food and full glass of water Magnesium No Notes: Memori a Sulfate 8-05 WASTE: F/P l 03:21: - Sink; E Tino - [employer] Trash Bin Potassium No Notes: Memori a Chloride 8-05 (Same as: l 03:21: K-Dur 20) Jamul 00 "Do Not Crush" With food and full glass of water Magnesium No Notes: Memori a Sulfate 8-05 WASTE: F/P l 03:21: - Sink; E Jamul - [employer] Trash Bin Potassium No Notes: Memori a Chloride 8-05 (Same as: l 03:21: K-Dur 20) Tino 00 "Do Not Crush" With food and full glass of water Magnesium No Notes: Memori a Sulfate 8-05 WASTE: F/P l 03:21: - Sink; E Tino - [facility] Trash Bin Potassium No Notes: Memori a Chloride 8-05 (Same as: l 03:21: K-Dur 20) Jamul 00 "Do Not Crush" With food and [...] WASTE: F/P l 03:21: - Sink; E Jamul - [employer] Trash Bin Potassium No Notes: Memori a Chloride 8-05 (Same as: l 03:21: K-Dur 20) Tino 00 "Do Not Crush" With food and full glass of water Pradaxa No Notes: DO Memor ia 8-05 NOT break, l 02:00: chew or Jamul 00 open capsules for administra tion. metoprolol No 25 mg, Memor ia tartrate 8-05 Route: PO, l 02:00: Drug form: Tino 00 TAB, Q12H, Dosing Weight 116.364, kg, Start date: 09/11/16 21:00:00 CDT, Duration: 30 day, Stop date: 10/11/16 9:00:00 CDT Pradaxa No Notes: DO Memor ia 8-05 NOT break, l 02:00: chew or Tino 00 open capsules for administra tion. metoprolol No 25 mg, Memor ia tartrate 8-05 Route: PO, l 02:00: Drug form: Tino 00 TAB, Q12H, Dosing Weight 116.364, kg, Start date: 09/11/16 21:00:00 CDT, Duration: 30 day, Stop date: 10/11/16 9:00:00 CDT Pradaxa No Notes: DO Memor ia 8-05 NOT break, l 02:00: chew or Jamul 00 open capsules for administra tion. metoprolol 2016-0 No 25 mg, Memor ia tartrate 8-05 Route: PO, l 02:00: Drug form: Jamul 00 TAB, Q12H, Dosing Weight 116.364, kg, Start date: 09/11/16 21:00:00 CDT, Duration: 30 day, Stop date: 10/11/16 9:00:00 CDT Pradaxa 2017-0 No Notes: DO Memor ia 8-05 NOT break, l 02:00: chew or Tino 00 open capsules for administra tion. metoprolol 2016-0 No 25 mg, Memor ia tartrate 8- Route: PO, l 02:00: Drug form: Tino 00 TAB, Q12H, Dosing Weight 116.364, kg, Start date: 09/11/16 21:00:00 CDT, Duration: 30 day, Stop date: 10/11/16 9:00:00 CDT Pradaxa 2017-0 No Notes: DO Memor ia 8-05 NOT break, l 02:00: chew or Jamul 00 open capsules for administra tion. metoprolol No 25 mg, Memor ia tartrate 8 Route: PO, l 02:00: Drug form: Jamul 00 TAB, Q12H, Dosing Weight 116.364, kg, Start date: 09/11/16 21:00:00 CDT, Duration: 30 day, Stop date: 10/11/16 9:00:00 CDT Pradaxa 2017-0 No Notes: DO Memor ia 8-05 NOT break, l 02:00: chew or Tino 00 open capsules for administra tion. metoprolol 2016-0 No 25 mg, Memor ia tartrate 8 Route: PO, l 02:00: Drug form: Tino 00 TAB, Q12H, Dosing Weight 116.364, kg, Start date: 09/11/16 21:00:00 CDT, Duration: 30 day, Stop date: 10/11/16 9:00:00 CDT Pradaxa 2017-0 No Notes: DO Memor ia 8-05 NOT break, l 02:00: chew or Tino 00 open capsules for administra tion. metoprolol 2017-0 No 25 mg, Memor ia tartrate 09-12 Route: PO, l 02:00: Drug form: Jamul 00 TAB, Q12H, Dosing Weight 116.364, kg, Start date: 09/11/16 21:00:00 CDT, Duration: 30 day, Stop date: 10/11/16 9:00:00 CDT Pradaxa 2017-0 No Notes: DO Memor ia 09-12 NOT break, l 02:00: chew or Jamul 00 open capsules for administra tion. metoprolol 2017-0 No 25 mg, Memor ia tartrate 09-12 Route: PO, l 02:00: Drug form: Tino 00 TAB, Q12H, Dosing Weight 116.364, kg, Start date: 09/11/16 21:00:00 CDT, Duration: 30 day, Stop date: 10/11/16 9:00:00 CDT Lasix 2017-0 No 20 mg, Memoria 8 Route: l 23:38: IVP, Drug Tino 00 form: INJ, ONCE, Dosing Weight 116.364, kg, Start date: 09/11/16 18:38:00 CDT, Stop date: 09/11/16 18:38:00 CDT Lasix 2017-0 No 20 mg, Memoria 8- Route: l 23:38: IVP, Drug Jamul 00 form: INJ, ONCE, Dosing Weight 116.364, kg, Start date: 09/11/16 18:38:00 CDT, Stop date: 09/11/16 18:38:00 CDT Lasix 2017-0 No 20 mg, Memoria 8- Route: l 23:38: IVP, Drug Tino 00 form: INJ, ONCE, Dosing Weight 116.364, kg, Start date: 09/11/16 18:38:00 CDT, Stop date: 09/11/16 18:38:00 CDT Lasix 2017-0 No 20 mg, Memoria 8- Route: l 23:38: IVP, Drug Jamul 00 form: INJ, ONCE, Dosing Weight 116.364, kg, Start date: 09/11/16 18:38:00 CDT, Stop date: 09/11/16 18:38:00 CDT Lasix 2017-0 No 20 mg, Memoria 8 Route: l 23:38: IVP, Drug Tino 00 form: INJ, ONCE, Dosing Weight 116.364, kg, Start date: 09/11/16 18:38:00 CDT, Stop date: 09/11/16 18:38:00 CDT Lasix 2017-0 No 20 mg, Memoria 8 Route: l 23:38: IVP, Drug Tino 00 form: INJ, ONCE, Dosing Weight 116.364, kg, Start date: 09/11/16 18:38:00 CDT, Stop date: 09/11/16 18:38:00 CDT Lasix 2017-0 No 20 mg, Memoria 8 Route: l 23:38: IVP, Drug Jamul 00 form: INJ, ONCE, Dosing Weight 116.364, kg, Start date: 09/11/16 18:38:00 CDT, Stop date: 09/11/16 18:38:00 CDT Lasix 2016-0 No 20 mg, Memoria 8 Route: l 23:38: IVP, Drug Jamul 00 form: INJ, ONCE, Dosing Weight 116.364, kg, Start date: 09/11/16 18:38:00 CDT, Stop date: 09/11/16 18:38:00 CDT Diltiazem No Notes: Memori a 8- (Same as: l 22:51: Cardizem) Tino Diltiazem No Notes: Memori a 8- (Same as: l 22:51: Cardizem) Tino Diltiazem 0 No Notes: Memori a 8-04 (Same as: l 22:51: Cardizem) Tino Diltiazem No Notes: Memori a 8-04 (Same as: l 22:51: Cardizem) Tino Diltiazem 0 No Notes: Memori a 8-04 (Same as: l 22:51: Cardizem) Jamul Diltiazem 0 No Notes: Memori a 8- (Same as: l 22:51: Cardizem) Jamul Diltiazem 0 No Notes: Memori a 8-04 (Same as: l 22:51: Cardizem) Diltiazem 2016-0 No Notes: Memori a 09-11 (Same as: l 22:51: Cardizem) tramadol 2016-0 No 50 mg, PO, Mem oria hydrochlori [...] 10 tab, 0 Refill(s) tramadol 0 No Notes: Not Mem oria hydrochlori 8-04 [...] 60 l mg oral 22:15: tab, 1 Jamul tablet 00 Refill(s) metoprolol No Notes: Memor ia tartrate 09-11 (Same as: l 22:15: Lopressor) Tino 00 metoprolol Yes 25 mg, PO, M emoria tartrate 25 8- Q12H, # 60 l mg oral 22:15: tab, 1 Tino tablet 00 Refill(s) metoprolol No Notes: Memor ia tartrate 09-11 (Same as: l 22:15: Lopressor) Jamul 00 metoprolol Yes 25 mg, PO, M emoria tartrate 25 8-04 Q12H, # 60 l mg oral 22:15: tab, 1 Tino tablet 00 Refill(s) metoprolol No Notes: Memor ia tartrate 09-11 (Same as: l 22:15: Lopressor) metoprolol Yes 25 mg, PO, M emoria tartrate 25 8-04 Q12H, # 60 l mg oral 22:15: tab, 1 Jamul tablet 00 Refill(s) metoprolol No Notes: Memor [...] 60 l mg oral 22:15: tab, 1 Jamul tablet 00 Refill(s) metoprolol No Notes: Memor ia tartrate 09-11 (Same as: l 22:15: Lopressor) metoprolol Yes 25 mg, PO, M emoria tartrate 25 8-04 Q12H, # 60 l mg oral 22:15: tab, 1 Jamul tablet 00 Refill(s) metoprolol No Notes: Memor ia tartrate 09-11 (Same as: l 22:15: Lopressor) metoprolol Yes 25 mg, PO, M emoria tartrate 25 8-04 Q12H, # 60 l mg oral 22:15: tab, 1 Tino tablet 00 Refill(s) metoprolol No Notes: Memor ia tartrate 09-11 (Same as: l 22:15: Lopressor) Acetaminoph No 1 tab, PO, Memoria en 300 MG / 8 Q4H, PRN l Codeine 22:00: Pain Score [...] not exceed l #3 21:59: 4gm/day of Jamul 00 acetaminop hen. (Same as: Tylenol with Codeine # 3) acetaminoph No Notes: Do M emoria en-codeine 8-04 not exceed l #3 21:59: 4gm/day of Tino 00 acetaminop hen. (Same as: Tylenol with Codeine # 3) acetaminoph No Notes: Do M emoria en-codeine 8-04 not exceed l #3 21:59: 4gm/day of Jamul 00 acetaminop hen. (Same as: Tylenol with Codeine # 3) acetaminoph No Notes: Do M emoria en-codeine 8-04 not exceed l #3 21:59: 4gm/day of Jamul 00 acetaminop hen. (Same as: Tylenol with Codeine # 3) acetaminoph No Notes: Do M emoria en-codeine 8-04 not exceed l #3 21:59: 4gm/day of Tino acetaminop hen. (Same as: Tylenol with Codeine # 3) acetaminoph No Notes: Do M emoria en-codeine 8-04 not exceed l #3 21:59: 4gm/day of Tino 00 acetaminop hen. (Same as: Tylenol with Codeine # 3) acetaminoph No Notes: Do M emoria en-codeine 8-04 not exceed l #3 21:59: 4gm/day of Tino acetaminop hen. (Same as: Tylenol with Codeine # 3) acetaminoph No Notes: Do M emoria en-codeine 8- not exceed l #3 21:59: 4gm/day of Jamul 00 acetaminop hen. (Same as: Tylenol with [...] tab, PO, l tablet 16:33: Daily, # Jamul 00 90 tab, 0 Refill(s) Glipizide Yes [...] PO, QAM, 0 l 16:33: Refill(s) valsartan 2017 Yes 320 mg = 1 Me moria 320 mg oral 8-04 tab, PO, l tablet 16:33: Daily, # Jamul 00 90 tab, 0 Refill(s) Glipizide Yes 10 mg = 1 Mem oria 10 MG Oral 8-04 tab, PO, l Tablet 16:33: BID-Before Odalys Meals, # 180 tab, 1 Refill(s) dabigatran [...] tab, PO, l tablet 16:33: Daily, # Jamul 00 90 tab, 0 Refill(s) Glipizide Yes 10 mg = 1 Mem oria 10 MG Oral 8-04 tab, PO, l Tablet 16:33: BID-Before Odalys Meals, # 180 tab, 1 Refill(s) dabigatran 0 Yes 150 mg = 1 M emoria etexilate 8-04 cap, PO, l 150 MG Oral 16:33: Q12H, # Her lea Capsule 00 180 cap, 3 [Pradaxa] Refill(s) Metformin 2017 Yes 850 mg, Memor ia 8-04 PO, QAM, 0 l 16:33: Refill(s) valsartan Yes 320 mg = 1 Me moria 320 mg oral 8-04 tab, PO, l tablet 16:33: Daily, # Tino 00 90 tab, 0 Refill(s) Glipizide 20170 Yes 10 mg = 1 Mem oria 10 MG Oral 8-04 tab, PO, l Tablet 16:33: BID-Before Odalys Meals, # 180 tab, 1 Refill(s) dabigatran 0 Yes 150 mg = 1 M emoria etexilate 8-04 cap, PO, l 150 MG Oral 16:33: Q12H, # Her lea Capsule 00 180 cap, 3 [Pradaxa] Refill(s) Metformin 2017 Yes 850 mg, Memor ia 8-04 PO, QAM, 0 l 16:33: Refill(s) valsartan 2017 Yes 320 mg = 1 [...] tab, PO, l tablet 16:33: Daily, # Jamul 00 90 tab, 0 Refill(s) Glipizide 0 Yes 10 mg = 1 Mem oria 10 MG Oral 8-04 tab, PO, l Tablet 16:33: BID-Before Meals, # 180 tab, 1 Refill(s) dabigatran 20170 Yes 150 mg = 1 M emoria etexilate 8-04 cap, PO, l 150 MG Oral 16:33: Q12H, # Her lea Capsule 00 180 cap, 3 [Pradaxa] Refill(s) Metformin 2017 Yes 850 mg, Memor ia 8-04 PO, QAM, 0 l 16:33: Refill(s) valsartan 0 Yes 320 mg = 1 Me moria 320 mg oral 8-04 tab, PO, l tablet 16:33: Daily, # Jamul 00 90 tab, 0 Refill(s) Glipizide 0 Yes 10 mg = 1 Mem oria 10 MG Oral 8-04 tab, PO, l Tablet 16:33: BID-Before Odalys nn 00 Meals, # 180 tab, 1 Refill(s) dabigatran 2017- Yes 150 mg = 1 M emoria etexilate 8-04 cap, PO, l 150 MG Oral 16:33: Q12H, # Her lea Capsule 00 180 cap, 3 [Pradaxa] Refill(s) Metformin 2017 Yes 850 mg, Memor ia 8-04 PO, QAM, 0 l 16:33: Refill(s) Tino 00 valsartan 2017 Yes 320 mg = 1 Me moria 320 mg oral 8-04 tab, PO, l tablet 16:33: Daily, # Jamul 00 90 tab, 0 Refill(s) Glipizide Yes [...] 2017-0 No 1,000 mL, Memori a chloride 8- Rate: 50 l 0.9% 1000 16:04: ml/hr, [...] tab, PO, l tablet 17:21: Daily, 0 Jamul 00 Refill(s) glyBURIDE 5 Yes 10 mg = 2 M emoria mg oral - tab, PO, l tablet 17:21: BID, 0 Jamul 00 Refill(s) Aspirin Low Yes PO, Daily, Memoria Dose 81 mg 03-05 0 l oral tablet 17:21: Refill(s) H ermann 00 Hydrochloro Yes 1 tab, PO, Memoria thiazide 50 03-05 Daily, # l MG / 17:21: 30 tab, 0 Jamul Triamterene 00 Refill(s) 75 MG Oral Tablet canaglifloz Yes 100 mg = 1 Memoria in 100 MG - tab, PO, l Oral Tablet 17:21: Daily, 0 He rmann [Invokana] 00 Refill(s) lisinopril Yes 20 mg = 1 Me moria 20 mg oral 03-05 tab, PO, l tablet 17:21: Daily, 0 Jamul 00 Refill(s) glyBURIDE 5 Yes 10 mg = 2 M emoria mg oral - tab, PO, l tablet 17:21: BID, 0 Jamul 00 Refill(s) Aspirin Low Yes PO, Daily, [...] tab, PO, l tablet 17:21: Daily, 0 Jamul 00 Refill(s) glyBURIDE 5 Yes 10 mg = 2 M emoria mg oral - tab, PO, l tablet 17:21: BID, 0 Tino 00 Refill(s) Aspirin Low Yes PO, Daily, Memoria Dose 81 mg 26 0 l oral tablet 17:21: Refill(s) H erm 00 Hydrochloro Yes 1 tab, PO, Memoria thiazide 50 - Daily, # l MG / 17:21: 30 tab, 0 Jamul Triamterene 00 Refill(s) 75 MG Oral Tablet [...] tab, PO, l tablet 17:21: BID, 0 Jamul 00 Refill(s) Aspirin Low Yes PO, Daily, Memoria Dose 81 mg -26 0 l oral tablet 17:21: Refill(s) H erm Hydrochloro Yes 1 tab, PO, Memoria thiazide 50 - Daily, # l MG / 17:21: 30 tab, 0 Jamul Triamterene 00 Refill(s) 75 MG Oral Tablet [...] tab, PO, l tablet 17:21: BID, 0 Jamul 00 Refill(s) Aspirin Low Yes PO, Daily, Memoria Dose 81 mg -26 0 l oral tablet 17:21: Refill(s) H erm 00 Hydrochloro Yes 1 tab, PO, Memoria thiazide 50 - Daily, # l MG / 17:21: 30 tab, 0 Jamul Triamterene 00 Refill(s) 75 MG Oral Tablet [...] Name Observation Time Observation Value Comments Source WEIGHT 2021-05-31 14:32:00 99.2 kg WEIGHT 2021-05-31 14:32:00 99.2 kg HEIGHT 2020-11-11 07:48:00 182.9 cm WEIGHT 2020-11-11 07:48:00 114.306 kg HEIGHT 2020-11-11 07:48:00 182.9 cm WEIGHT 2020-11-11 07:48:00 114.306 kg HEIGHT 2020-11-07 10:38:00 182.9 cm WEIGHT 2020-11-07 10:38:00 115.667 kg HEIGHT 2020-11-07 10:38:00 182.9 cm WEIGHT 2020-11-07 10:38:00 115.667 kg HEIGHT 2020-06-26 09:00:00 182.9 cm WEIGHT 2020-06-26 09:00:00 110.088 kg HEIGHT 2020-06-25 19:57:00 188 cm WEIGHT 2020-06-25 19:57:00 99.791 kg HEIGHT 2020-06-26 09:00:00 182.9 cm WEIGHT 2020-06-26 09:00:00 110.088 kg HEIGHT 2020-06-25 19:57:00 188 cm WEIGHT 2020-06-25 19:57:00 99.791 kg Systolic blood 2021-06-05 15:41:00 124 mm[Hg] [facility] Diastolic blood 2021-06-05 15:41:00 57 mm[Hg] [facility] Heart rate 2021-06-05 15:41:00 68 /min [facility] Body temperature 2021-06-05 15:41:00 35.61 [facility] Respiratory rate 2021-06-05 15:41:00 18 /min [facility] Oxygen saturation in 2021-06-05 15:41:00 97 /min [facility] Arterial blood by Medical Ce [facility]ter Pulse oximetry Body weight 2021-05-31 14:32:00 99.2 kg [facility] BMI 2021-05-31 14:32:00 29.66 kg/m2 [facility] Body height 2020-11-11 07:48:00 182.9 cm [facility] Systolic blood 2020-07-05 10:59:00 113 mm[Hg] [facility] Diastolic blood 2020-07-05 10:59:00 51 mm[Hg] [facility] Heart rate 2020-07-05 10:59:00 80 /min [facility] Body temperature 2020-07-05 10:59:00 36.17 [facility] Respiratory rate 2020-07-05 10:59:00 17 /min [facility] Oxygen saturation in 2020-07-05 10:59:00 97 /min [facility] Arterial blood by Medical Ce [facility]ter Pulse oximetry Body height 2020-06-26 09:00:00 182.9 cm [facility] Body weight 2020-06-26 09:00:00 110.088 kg [facility] BMI 2020-06-26 09:00:00 32.92 kg/m2 [facility] Temperature Oral (F) 2016-09-12 20:06:00 97.9 F [facility] Respitory Rate 2016-09-12 19:00:00 Memori al Jamul Systolic (mm Hg) 2016-09-12 19:00:00 Niko rial Tnio Diastolic (mm Hg) 2016-09-12 19:00:00 Mem orial Tino Respitory Rate 2016-09-12 18:00:00 Memori al Jamul Systolic (mm Hg) 2016-09-12 18:00:00 Niko rial Jamul Diastolic (mm Hg) 2016-09-12 18:00:00 Mem orial Jamul Respitory Rate 2016-09-12 17:00:00 Memori al Jamul Systolic (mm Hg) 2016-09-12 17:00:00 Niko rial Jamul Diastolic (mm Hg) 2016-09-12 17:00:00 Mem orial Tino Temperature Oral (F) 2016-09-12 12:51:00 97.9 F [facility] [place]ul Temperature Oral (F) 2016-09-12 10:38:00 97.6 F [facility] Tino BMI Calculated 2016-09-11 16:02:00 Memori al Jamul Weight 2016-09-11 16:02:00 [facility] Height 2016-09-11 16:02:00 182.88 cm [facility]ul Systolic (mm Hg) 2014-03-06 20:30:00 Niko rial Jamul Diastolic (mm Hg) 2014-03-06 20:30:00 Mem orial Tino Respitory Rate 2014-03-06 20:30:00 Memori al Jamul Diastolic (mm Hg) 2014-03-06 20:15:00 Mem orial Jamul Systolic (mm Hg) 2014-03-06 20:15:00 Niko rial Jamul Respitory Rate 2014-03-06 20:15:00 Memori al Jam[facility] Diastolic (mm Hg) 2014-03-06 20:02:00 [facility] Systolic (mm Hg) 2014-03-06 20:02:00 [facility] Respitory Rate 2014-03-06 20:02:00 [facility] Heart Rate 2014-03-06 17:15:00 [facility] Heart Rate 2014-03-05 17:17:00 [facility] BMI Calculated 2014-03-05 16:24:00 [facility] Weight 2014-03-05 16:24:00 [facility] Height 2014-03-05 16:24:00 180.34 cm [facility] Procedures Procedure Date / Time Performed Performing Clinician Sourc e CBC W/PLT COUNT & AUTO 2021-06-05 09:38:00 Gerda Schneider [facility] BASIC METABOLIC PANEL 2021-06-05 09:38:00 Gerda Schneider [facility] CBC W/PLT COUNT & AUTO 2021-06-05 09:38:00 Gerda Schneider [facility] (CELLAVISION MANUAL 2021-06-05 09:38:00 Gerda Schneider [facility]SE [facility] 2021-06-05 07:45:00 Wyatt [facility] POCT-GLUCOSE METER 2021-06-04 22:32:00 Wyatt [facility] POCT-GLUCOSE METER 2021-06-04 16:52:00 Wyatt [facility] XR FOOT 3 VIEWS LEFT 2021-06-04 13:52:00 Stanford Marcum [facility] POCT-GLUCOSE METER 2021-06-04 13:36:00 Wyatt [facility] TISSUE EXAM 2021-06-04 13:00:00 Aleksandr Duong [facility] AMPUTATION, TOE 2021-06-04 12:12:00 Aleksandr Duong [facility] POCT-GLUCOSE METER 2021-06-04 08:19:00 Wyatt [facility] APTT 2021-06-04 04:56:00 Stanford Marcum [facility] POCT-GLUCOSE METER 2021-06-03 22:20:00 Wyatt [facility] POCT-GLUCOSE METER 2021-06-03 12:50:00 Wyatt [facility] POCT-GLUCOSE METER 2021-06-03 10:13:00 Wyatt [facility] ANGIOGRAM, ILIAC VESSEL 2021-06-03 07:19:00 Eli Denny [facility] APTT 2021-06-03 05:05:00 Stanford Marcum Tim [facility] APTT 2021-06-02 22:10:00 Stanford Marcum [facility] POCT-GLUCOSE METER 2021-06-02 21:04:00 Wyatt [facility] POCT-GLUCOSE METER 2021-06-02 17:37:00 Wyatt [facility] APTT 2021-06-02 14:48:00 Stanford Marcum [facility] POCT-GLUCOSE METER 2021-06-02 12:43:00 Wyatt [facility] ABORH, MANUAL 2021-06-02 11:09:00 Winifred Ellington [facility] POCT-GLUCOSE METER 2021-06-02 08:14:00 Wyatt [facility] TYPE AND SCREEN, 2021-06-02 07:56:00 Carlos Davis [facility] APTT 2021-06-02 07:50:00 Stanford Marcum Tim [facility] APTT 2021-06-02 00:25:00 Stanford Marcum [facility] POCT-GLUCOSE METER 2021-06-01 22:24:00 Wyatt [facility] ARTERIAL (SRIRAM'S W/ 2021-06-01 21:10:[address] [facility] [address] [facility] APTT 2021-06-01 18:01:00 Stanford Marcum [facility] POCT-GLUCOSE METER 2021-06-01 16:57:00 Wyatt [facility] XR FOOT 3 VIEWS LEFT 2021-06-01 13:27:00 Chago Peterson [facility] POCT-GLUCOSE METER 2021-06-01 12:09:00 Wyatt [facility] APTT 2021-06-01 11:36:00 Stanford Marcum [facility] ARTERIAL DOPPLER LEGS 2021-06-01 11:05:00 Carlos Davis [facility] POCT-GLUCOSE METER 2021-06-01 07:57:00 Wyatt [facility] CBC W/PLT COUNT & AUTO 2021-06-01 05:13:[address] [facility] BASIC METABOLIC PANEL 2021-06-01 05:13:00 Sonia Mo [facility] HEPATIC FUNCTION PANEL 2021-06-01 05:13:00 Sonia Mo [facility] C-REACTIVE PROTEIN 2021-06-01 05:13:00 Sonia Mo [facility] VITAMIN B12 AND FOLATE 2021-06-01 05:13:00 Sonia Mo [facility] APTT 2021-06-01 05:13:00 Stanford Marcum [facility] CBC W/PLT COUNT & AUTO 2021-06-01 05:13:[address] [facility] (CELLAVISION MANUAL 2021-06-01 05:13:00 Sonia Mo [facility] APTT 2021-05-31 23:12:00 Stanford Marcum [facility] POCT-GLUCOSE METER 2021-05-31 22:24:00 Sonia Mo [facility] APTT 2021-05-31 22:18:[address] [facility] POCT-[facility]SE METER 2021-05-31 17:11:00 Candida [facility] SARS-COV2/RT-PCR ([facility] & 2021-05-31 15:04:00 Stanford Marcum [facility] REF LABS) [facility] APTT 2021-05-31 14:51:00 Candida [facility] CBC (HEMOGRAM ONLY) 2021-05-31 14:45:00 Candida [facility] BASIC METABOLIC PANEL 2021-05-31 14:45:00 Candida [facility] CARDIAC CATH REPORT - 2021-05-31 00:00:00 Provider [facility] POCT-GLUCOSE METER 2020-11-11 15:50:00 [facility] POCT-GLUCOSE METER 2020-11-11 15:18:00 Eduin [facility] PERIPHERAL ANGIOS / 2020-11-11 12:39:00 Eli Denny [facility] ([facility] ONLY[facility] 2020-11-11 09:09:00 [facility] BASIC METABOLIC PANEL 2020-11-11 09:09:00 [facility] [address] PROTHROMBIN TIME/INR 2020-11-11 09:09:00 [facility] APTT 2020-11-11 09:09:00 [facility] ECG 12-LEAD 2020-11-11 07:49:58 [facility] ECG 12-LEAD 2020-11-11 07:49:58 Unknown, Hl7 [facility] CARDIAC CATH REPORT - 2020-11-11 00:00:00 Pb [facility] BASIC METABOLIC PANEL 2020-11-07 11:33:00 Eli Denny [facility] () [facility] CBC W/PLT COUNT & AUTO 2020-11-07 11:33:00 Eli Denny [facility] DIFFERENTIAL [facility] PROTHROMBIN TIME/INR 2020-11-07 11:33:00 Eduin [facility] CBC W/PLT COUNT & AUTO 2020-11-07 11:33:00 Eli Denny [facility] Juanita [facility] DIFFERENTIAL [facility] (CELLAVISION MANUAL 2020-11-07 11:33:00 [facility] SARS-COV2/RT-PCR ([facility] & 2020-11-07 11:10:00 [facility]in [facility] RE[facility] ECG 12-LEAD 2020-11-07 10:39:57 Unknown, Hl7 [facility] ECG 12-LEAD 2020-11-07 10:39:57 Unknown, Hl7 [facility] XR FOOT 3 VIEWS RIGHT 2020-10-16 13:50:00 Aleksandr Duong [facility] XR FOOT 3 VIEWS RIGHT 2020-09-04 12:18:00 Aleksandr Duong [facility] POCT-GLUCOSE METER 2020-07-05 11:02:00 [facility]SE METER 2020-07-05 07:52:00 [facility] CBC W/PLT COUNT & AUTO 2020-07-05 04:20:00 OMID Portillo DIFFERENTIAL [facility] BASIC METABOLIC PANEL 2020-07-05 04:20:00 OMID Portillo [facility] (7) [facility] (CELLAVISION MANUAL 2020-07-05 04:20:00 [facility] St L [facility] DIFF) [facility] CBC W/PLT COUNT & AUTO 2020-07-05 04:20:00 OMID Portillo DIFFERENTIAL [facility] POCT-GLUCOSE METER 2020-07-04 21:24:00 [facility] 2020-07-04 17:38:00 Bandar [facility] CBC W/PLT COUNT & AUTO 2020-07-04 15:02:00 Bandar OMID S t Luadiel DIFFERENTIAL [facility] BASIC METABOLIC PANEL 2020-07-04 15:02:00 Bandar [facility] (7) [facility] (CELLAVISION MANUAL 2020-07-04 15:02:[address] [facility] DIFF) [facility] CBC W/PLT COUNT & AUTO 2020-07-04 15:02:00 Bandar OMID S t Luadiel DIFFERENTIAL [facility] APTT 2020-07-04 12:11:[address] [facility] POCT-GLUCOSE METER 2020-07-04 12:09:00 Bandar [facility] POCT-GLUCOSE METER 2020-07-04 07:25:00 [facility] APTT 2020-07-04 04:37:[address] [facility] APTT 2020-07-03 23:27:[address] [facility] POCT-GLUCOSE METER 2020-07-03 21:06:00 Bandar [facility] POCT-GLUCOSE METER 2020-07-03 17:12:00 Bandar [facility] APTT 2020-07-03 15:25:[address] [facility] APTT 2020-07-03 14:21:[address] [facility] POCT-GLUCOSE METER 2020-07-03 12:08:00 Bandar [facility] POCT-GLUCOSE METER 2020-07-03 07:56:00 [facility] SARS-COV2/RT-PCR ([facility] & 2020-07-03 04:47:00 [facility] REF LABS) [facility] CBC (HEMOGRAM ONLY) 2020-07-03 04:09:00 Christian Sellers [facility] BASIC METABOLIC PANEL 2020-07-03 04:09:00 Christian Sellers [facility] (7) [facility] APTT 2020-07-03 04:09:00 [facility] POCT-GLUCOSE METER 2020-07-02 17:42:00 Christian Sellers [facility] CBC (HEMOGRAM ONLY) 2020-07-02 17:31:00 [facility] VANCOMYCIN LEVEL, RANDOM 2020-07-02 15:53:00 [facility] POCT-GLUCOSE METER 2020-07-02 14:29:00 Christian Sellers [facility] TISSUE EXAM 2020-07-02 13:10:00 Aleksandr Duong [facility] AMPUTATION,TOE 2020-07-02 12:39:00 Aleksandr Duong [facility] POCT-GLUCOSE METER 2020-07-02 11:35:00 Christian Sellers [facility] ECG 12-LEAD 2020-07-02 11:28:39 Cong Leon [facility] ECG 12-LEAD 2020-07-02 11:28:39 Unknown, Hl7 [facility] POCT-GLUCOSE METER 2020-07-02 07:52:00 Christian Sellers [facility] SARS-COV2/RT-PCR ([facility] & 2020-07-02 04:34:00 Christian Sellers [facility] REF LABS) [facility] APTT 2020-07-02 04:32:00 [facility] CBC W/PLT COUNT & AUTO 2020-07-02 02:44:00 Christian Sellers [facility] BASIC METABOLIC PANEL 2020-07-02 02:44:00 Marlo Marilynnrasheedacton Lyudmila [facility] () [facility] APTT 2020-07-02 02:44:00 [facility] (CELLAVISION MANUAL 2020-07-02 02:44:00 Marlo Marilynnsanjana Coreas [facility] CBC W/PLT COUNT & AUTO 2020-07-02 02:44:00 Marlo Fernandojocelynn Coreas [facility] POCT-GLUCOSE METER 2020-07-01 23:07:00 [facility] Lyud[facility] APTT 2020-07-01 17:35:00 [facility] POCT-GLUCOSE METER 2020-07-01 16:50:00 [facility] Lyudmila [facility] APTT 2020-07-01 13:45:00 [facility] POCT-GLUCOSE METER 2020-07-01 11:56:00 [facility] PO[facility]UCOSE METER 2020-07-01 07:22:00 MarloFernandoacton Lyudmila [facility] APTT 2020-07-01 05:24:00 [facility] CBC W/PLT COUNT & AUTO 2020-07-01 05:24:00 Marlo Fernandojocelynn Coreas [facility] BASIC METABOLIC PANEL 2020-07-01 05:24:00 Marlo Christian [facility] () [facility] VANCOMYCIN LEVEL, RANDOM 2020-07-01 05:24:00 Mino Hui [facility] HEPATIC FUNCTION PANEL 2020-07-01 05:24:00 Too Pino [facility] (CELLAVISION MANUAL 2020-07-01 05:24:00 Christian Sellers [facility] CBC W/PLT COUNT & AUTO 2020-07-01 05:24:00 [facility] POCT-GLUCOSE METER 2020-07-01 00:14:00 Fernando Sellersacton Lyudmila [facility] APTT 2020-06-30 23:39:00 [facility] APTT 2020-06-30 16:01:00 [facility] APTT 2020-06-30 14:06:00 [facility] APTT 2020-06-30 13:27:00 [facility] POCT-GLUCOSE METER 2020-06-30 12:00:00 [facility] POCT-GLUCOSE METER 2020-06-30 08:07:00 [facility] Lyudmila [facility] APTT 2020-06-30 07:29:00 [facility] VANCOMYCIN LEVEL, RANDOM 2020-06-30 05:20:00 Mino Hui [facility] CBC W/PLT COUNT & AUTO 2020-06-30 05:20:00 [facility] BASIC METABOLIC PANEL 2020-06-30 05:20:00 [facility] ([facility] (CELLAVISION MANUAL 2020-06-30 05:20:00 MarloFernando east[place] Lyudmila [facility] CBC W/PLT COUNT & AUTO 2020-06-30 05:20:00 Christian Sellers [facility] APTT 2020-06-30 00:01:00 [facility] APTT 2020-06-29 21:53:00 [facility] POCT-GLUCOSE METER 2020-06-29 20:55:00 [facility] POCT-GLUCOSE METER 2020-06-29 17:07:00 [facility] CBC (HEMOGRAM ONLY) 2020-06-29 13:52:00 [facility] APTT 2020-06-29 13:52:00 [facility] POCT-GLUCOSE METER 2020-06-29 12:02:00 Christian Sellers [facility] POCT-GLUCOSE METER 2020-06-29 07:56:00 Christian Sellers [facility] CBC W/PLT COUNT & AUTO 2020-06-29 06:48:00 Barbara Colón [facility] BASIC METABOLIC PANEL 2020-06-29 06:48:00 Barbara Colón [facility] (7) [facility] APTT 2020-06-29 06:48:00 [facility] MAGNESIUM 2020-06-29 06:48:00 Kaya Colvin [facility] (CELLAVISION MANUAL 2020-06-29 06:48:00 Barbara Colón [facility] CBC W/PLT COUNT & AUTO 2020-06-29 06:48:00 Barbara Colón [facility] APTT 2020-06-29 00:13:00 [facility] APTT 2020-06-28 21:37:00 [facility] POCT-GLUCOSE METER 2020-06-28 21:24:00 Christian Sellers [facility] VANCOMYCIN LEVEL, TROUGH 2020-06-28 20:04:00 Barbara Colón [facility] POCT-GLUCOSE METER 2020-06-28 17:31:00 Christian Sellers [facility] VENOGRAM 2020-06-28 14:56:00 Eli Denny [facility] APTT 2020-06-28 13:36:00 [facility] POCT-GLUCOSE METER 2020-06-28 11:40:00 Christian Sellers [facility] POCT-GLUCOSE METER 2020-06-28 07:39:00 Marlo Marilynnrasheedjocelynn Lyud[facility] CBC W/PLT COUNT & AUTO 2020-06-28 04:37:00 Marlo Marilynnrasheedjocelynn Lyudmila [facility] BASIC METABOLIC PANEL 2020-06-28 04:37:00 MarloMarilynnrasheedjocelynn Lyudmila [facility] (7) [facility] APTT 2020-06-28 04:37:00 [facility] (CELLAVISION MANUAL 2020-06-28 04:37:00 Marlo Marilynnsanjana Coreas [facility] CBC W/PLT COUNT & AUTO 2020-06-28 04:37:00 Christian Sellers [facility] POCT-GLUCOSE METER 2020-06-27 23:12:00 Marlo Marilynnrasheedjocelynn Lyumdila [facility] APTT 2020-06-27 21:25:00 [facility] APTT 2020-06-27 18:32:00 [facility] POCT-GLUCOSE METER 2020-06-27 18:07:00 Marlo Christian Lyudmila [facility] POCT-GLUCOSE METER 2020-06-27 11:55:00 Marlo Christian Lyudmila [facility] APTT 2020-06-27 11:47:00 [facility] POCT-GLUCOSE METER 2020-06-27 07:18:00 Marlo Marilynnsanjana Coreas [facility] CBC W/PLT COUNT & AUTO 2020-06-27 05:36:00 Marlo Christian Lyudmila [facility] BASIC METABOLIC PANEL 2020-06-27 05:36:00 Marlo Marilynnrasheedjocelynn Lyud[facility]ila [facility] (7) [facility] APTT 2020-06-27 05:36:00 [facility] (CELLAVISION MANUAL 2020-06-27 05:36:00 Marlo Christian Lyudmila [facility] DIFF) [facility] CBC W/PLT COUNT & AUTO 2020-06-27 05:36:00 [facility] ARTERIAL DOPPLER LEGS 2020-06-27 00:18:00 [facility] APTT 2020-06-26 22:43:00 [facility] POCT-GLUCOSE METER 2020-06-26 17:33:00 [facility] CBC (HEMOGRAM ONLY) 2020-06-26 15:21:00 [facility] APTT 2020-06-26 15:21:00 [facility] POCT-GLUCOSE METER 2020-06-26 12:23:00 [facility] BASIC METABOLIC PANEL 2020-06-26 03:35:00 [facility] (7) [facility] HEMOGLOBIN A1C 2020-06-26 03:35:[address] [facility] CBC W/PLT COUNT & AUTO 2020-06-26 03:35:00 [facility] C-REACTIVE PROTEIN 2020-06-26 03:35:00 [facility] VITAMIN B12 AND FOLATE 2020-06-26 03:35:00 [facility] (CELLAVISION MANUAL 2020-06-26 03:35:00 [facility] DIFF) [facility] CBC W/PLT COUNT & AUTO 2020-06-26 03:35:00 [facility] XR FOOT 3 VIEWS RIGHT 2020-06-25 23:30:[address] [facility] VENOUS DOPPLER LEG, 2020-06-25 22:58:00 [facility] SARS-COV2/RT-PCR ([facility] & 2020-06-25 21:40:00 [facility] REF LABS) [facility] BLOOD CULTURE 2020-06-25 21:40:00 [facility] 2020-06-25 18:39:[address] [facility] BLOOD CULTURE 2020-06-25 18:36:00 [facility] CBC W/PLT COUNT & AUTO 2020-06-25 18:36:00 Chahal, Thshaun Spencer Ayo [facility] BASIC METABOLIC PANEL 2020-06-25 18:36:00 ChahalSuri dunn Spencer I [facility] (7) [facility] LACTIC ACID, VENOUS 2020-06-25 18:36:00 [facility] PT/APTT 2020-06-25 18:36:00 [facility] C-REACTIVE PROTEIN 2020-06-25 18:36:00 [facility] (CELLAVISION MANUAL 2020-06-25 18:36:00 [facility] DIFF) [facility] CBC W/PLT COUNT & AUTO 2020-06-25 18:36:[address] [facility] CARDIAC CATH REPORT - 2020-06-25 00:00:00 Provider, Sven [facility] SCAN Scanning [facility] knee<sup>1</sup> Procedure<sup>2</sup> [facility] Plan of Care Planned Activity Planned Date Details Comments Source Future Scheduled 2022-10-[address] [facility] 00:00:00 (Season Ended) [code = Medic al Center INFLUENZA VACCINE (Season Ended)] Future Scheduled 2022-10-[address] [facility] 00:00:00 (Season Ended) [code = Medic al Center Influenza Vaccine (Season Ended)] Future Scheduled 2022-10-09 Influenza Vaccine (#1) [facility]00 [code = Influenza Medical Ce nter Vaccine (#1)] Future Scheduled 2022-02-[address] [facility] 00:00:00 (12+) [code = Medical Center DEPRESSION SCREENING (12+)] Future Scheduled 2022-02-08 FALLS RISK SCREENING [facility] Test 00:00:00 [code = FALLS RISK Medical C enter SCREENING] Future Scheduled 2022-02-[address] [facility] Test 00:00:00 (12+) [code = [facility] DEPRESSION SCREENING (12+)] Future Scheduled 2022-02-08 [facility]00 (12+) [code = [facility] DEPRESSION SCREENING (12+)] Future Scheduled 2022-02-08 FALLS RISK SCREENING [facility] 00:00:00 [code = FALLS RISK Medical C enter SCREENING] Future Scheduled 2021-11-[address] [facility]:00 (Season Ended) [code = [facility] INFLUENZA VACCINE (Season Ended)] Future Scheduled 2021-10-09 INFLUENZA VACCINE (#1) [facility] 00:00:00 [code = INFLUENZA Medical Ce nter VACCINE (#1)] Future Scheduled 2021-10-09 INFLUENZA VACCINE (#1) [facility] 00:00:00 [code = INFLUENZA Medical Ce nter VACCINE (#1)] Future Scheduled 2021-10-09 INFLUENZA VACCINE (#1) [facility] 00:00:00 [code = INFLUENZA Medical Ce nter VACCINE (#1)] Future Scheduled 2020-12-[address] [facility] 00[facility]00 measurement Medical Center (procedure) [code = 77306372] Future Scheduled 2020-12-[address] [facility]00 [facility] Center (procedure) [code = 04984762] Future Scheduled 2020-12-[address] [facility]00 [facility] Center (procedure) [code = 24934268] Future Scheduled 2020-12-[address] [facility] 00[facility] (procedure) [code = 26533172] Future Scheduled 2020-12-[address] [facility] 00[facility]00 [facility] (procedure) [code = 13949073] Future Scheduled 2020-12-[address] [facility] 00[facility]00 [facility] Center (procedure) [code = 82556058] Future Scheduled 2020-12-[address] [facility] 00[facility]00 measurement Medical Center (procedure) [code = 25244080] Future Scheduled 2020-12-[address] [facility] measurement [facility] Center (procedure) [code = 33201394] Future Scheduled 2020-10-09 INFLUENZA VACCINE (#1) [facility] 00:00:00 [code = INFLUENZA Medical Ce [...] 00:00:00 protein (procedure) Medical Center [code = 855552541] Future Scheduled 2018-01-30 Urine screening for [facility] 00:00:00 protein (procedure) Medical Center [code = 718896418] Future Scheduled 2018-01-30 Urine screening for [facility] 00:00:00 protein (procedure) Medical Center [code = 855430856] Future Scheduled 2018-01-30 Urine screening for [facility] 00:00:00 protein (procedure) Medical Center [code = 339566689] Future Scheduled 2018-01-30 Urine screening for [facility] 00:00:00 protein (procedure) Medical Center [code = 422457124] Future Scheduled 2018-01-30 Urine screening for [facility] 00:00:00 protein (procedure) Medical Center [code = 615618334] Future Scheduled 2018-01-30 Urine screening for [facility] 00:00:00 protein (procedure) Medical Center [code = 512989232] Future Scheduled 2018-01-30 Urine screening for [facility] 00:00:00 protein (procedure) Medical Center [code = 331181211] Future Scheduled 2017-02-[address] [...] 00:00:00 (1 of 1 - Medical Center [id number]) [code = PNEUMOCOCCAL 65+ YRS (1 of 1 - [id number])] Future Scheduled 2008-06-12 PNEUMOCOCCAL 65+ YRS [facility] 00:00:00 (1 of 1 - PPSV23) Medical Ce nter [code = PNEUMOCOCCAL 65+ YRS (1 of 1 - PPSV23)] Future Scheduled 1993-06-12 SHINGLES VACCINES ([address] [facility] 00:00:00 of 2) [code = SHINGLES Medic al Center VACCINES (1 of 2)] Future Scheduled 1993-06-12 SHINGLES VACCINES ([address] [facility] 00:00:00 of 2) [code = SHINGLES Medic al Center VACCINES (1 of 2)] Future Scheduled 1993-06-12 SHINGLES VACCINES ([address] [facility] 00:00:00 of 2) [code = SHINGLES Medic al Center VACCINES (1 of 2)] Future Scheduled 1993-06-12 SHINGLES VACCINES ([address] [facility] 00:00:00 of 2) [code = SHINGLES Medic al Center VACCINES (1 of 2)] Future Scheduled 1993-06-12 SHINGLES VACCINES ([address] [facility] 00:00:00 of 2) [code = SHINGLES Medic al Center VACCINES (1 of 2)] Future Scheduled 1993-06-12 SHINGLES VACCINES ([address] [facility] 00:00:00 of 2) [code = SHINGLES Medic al Center VACCINES (1 of 2)] Future Scheduled 1993-06-12 SHINGLES VACCINES ([address] [facility] 00:00:00 of 2) [code = SHINGLES Medic al Center VACCINES (1 of 2)] Future Scheduled 1993-06-12 SHINGLES VACCINES ([address] [facility] 00:00:00 of 2) [code = SHINGLES Medic al Center VACCINES (1 of 2)] Future Scheduled 1962-06-12 DTAP/TDAP/TD VACCINES [facility]:00 (1 - Tdap) [code = Medical C enter DTAP/TDAP/TD VACCINES (1 - Tdap)] Future Scheduled 1962-06-12 DTAP/TDAP/TD VACCINES [facility] 00:00:00 (1 - Tdap) [code = Medical C enter DTAP/TDAP/TD VACCINES (1 - Tdap)] Future Scheduled 1962-06-12 DTAP/TDAP/TD VACCINES [facility] 00:00:00 (1 - Tdap) [code = Medical C enter DTAP/TDAP/TD VACCINES (1 - Tdap)] Future Scheduled 1962-06-12 DTAP/TDAP/TD VACCINES [facility] 00:00:00 (1 - Tdap) [code = Medical C enter DTAP/TDAP/TD VACCINES (1 - Tdap)] Future Scheduled 1962-06-12 DTAP/TDAP/TD VACCINES [facility] 00:00:00 (1 - Tdap) [code = Medical C enter DTAP/TDAP/TD VACCINES (1 - Tdap)] Future Scheduled 1962-06-12 DTAP/TDAP/TD VACCINES [facility] 00:00:00 (1 - Tdap) [code = Medical C enter DTAP/TDAP/TD VACCINES (1 - Tdap)] Future Scheduled 1962-06-12 DTAP/TDAP/TD VACCINES [facility] 00:00:00 (1 - Tdap) [code = Medical C enter DTAP/TDAP/TD VACCINES (1 - Tdap)] Future Scheduled 1962-06-12 DTAP/TDAP/TD VACCINES [facility] 00:00:00 (1 - Tdap) [code = Medical C enter DTAP/TDAP/TD VACCINES (1 - Tdap)] Future Scheduled 1961-06-12 HEPATITIS C SCREENING [facility]00 [code = HEPATITIS C Medical Center SCREENING] Future Scheduled 1961-06-12 HEPATITIS C [facility]CRE[facility]ING [facility]:00:00 [code = HEPATITIS C Medical Center SCREENING] Future Scheduled 1961-06-12 HEPATITIS C [facility]CRE[facility]ING [facility] 00:00:00 [code = HEPATITIS C Medical Center SCREENING] Future Scheduled 1961-06-12 HEPATITIS C [facility]CRE[facility]ING [facility] 00:00:00 [code = HEPATITIS C Medical Center SCREENING] Future Scheduled 1961-06-12 HEPATITIS C [facility]CREENING [facility] 00:00:00 [code = HEPATITIS C Medical Center SCREENING] Future Scheduled 1961-06-12 HEPATITIS C [facility]CRE[facility]ING [facility]:00:00 [code = HEPATITIS C Medical Center SCREENING] Future Scheduled 1961-06-12 HEPATITIS C [facility]CRE[facility]ING [facility]:00:00 [code = HEPATITIS C Medical Center SCREENING] Future Scheduled 1961-06-12 HEPATITIS C SCREENING [facility] [facility]00 [code = HEPATITIS C Medical [...] 00:00:00 examination Medical Center (regime/therapy) [code = 456630182] Future Scheduled 1953-06-[address] EXAM [facility] 00:00:00 [code = DIABETIC EYE [facility] EXAM] Future Scheduled 1953-06-[address] [facility] examination [facility] (regime/therapy) [code = 084617943] Future Scheduled 1953-06-[address] EXAM [facility] 00:00:00 [code = DIABETIC EYE [facility] EXAM] Future Scheduled 1953-06-[address] [facility] examination [facility] (regime/therapy) [code = 530671563] Future Scheduled 1953-06-[address] DI[address]YE EXAM [facility] 00:00:00 [code = DIABETIC EYE [facility] EXAM] Future Scheduled 1953-06-[address] [facility] examination [facility] (regime/therapy) [code = 805729729] Future Scheduled 1953-06-[address] DI[address]YE EXAM [facility] 00[facility]00:00 [code = DIABETIC EYE [facility] EXAM] Future Scheduled 1953-06-[address] [facility] examination [facility] (regime/therapy) [code = 327110034] Future Scheduled 1953-06-[address] DI[address]YE EXAM [facility] 00:00:00 [code = DIABETIC EYE [facility] EXAM] Future Scheduled 1953-06-[address] [facility] examination [facility] (regime/therapy) [code = 657959533] Future Scheduled 1953-06-[address] DI[address]YE EXAM [facility] 00:00:00 [code = DIABETIC EYE [facility] EXAM] Future Scheduled 1953-06-[address] [facility] examination [facility] (regime/therapy) [code = 464198173] Future Scheduled 1953-06-[address] DI[address] EYE EXAM [facility] 00:00:00 [code = DIABETIC EYE [facility] EXAM] Future Scheduled 1953-06-[address] [facility] examination [facility] Center (regime/therapy) [code = 324000738] Future Scheduled 1949-06-12 PNEUMOCOCCAL 65+ YRS [facility] [...] VACCINE (1)] Future Scheduled 1943 COVID-19 VACCINE (#1) [facility]:00 [code = COVID-[address] VACCINE (#1)] Future Scheduled 1943 COVID-19 VACCINE (#1) [facility]:00:00 [code = COVID-[address] VACCINE (#1)] Future Scheduled 1943 COVID-19 VACCINE (#1) [facility] 00:00:00 [code = COVID-[address] VACCINE (#1)] Future Scheduled 1943 COVID-19 VACCINE (#1) [facility] 00:00:00 [code = COVID-[address] VACCINE (#1)] Future Scheduled 1943 COVID-19 VACCINE (#1) [facility] 00:00:00 [code = COVID-[address] VACCINE (#1)] Future Scheduled 1943 COVID-19 VACCINE (#1) [facility] 00:00:00 [code = COVID-[address] VACCINE (#1)] Encounters Start End Encounter Admission Attending Care Care Encounter Source Date/Time Date/Time Type Type Clinicians Facility Department ID 2021-05-31 2021-06-05 [facility] Anuj Pascal [facility] [id number] [facility]:58[facility]00 17:01:00 Encounter [facility] 2021-05-31 2021-06-05 Inpatient UR W[facility] Surgery [id number] [facility] 11:58:00 17:01:00 [facility] 2021-06-04 2021-06-04 Surgery Justin [facility] [id number] 12:00:00 14:05:00 [facility] 2021-06-04 2021-06-04 Anesthesia Edward [facility] [id number] 12:27:00 13:30:[address] [facility] 2021-06-03 2021-06-03 Surgery Eduin [facility] [id number] 07:30:00 10:13:00 [facility] 2020-11-11 2020-11-11 Outpatient EL DENNYSHERWIN Surgery [id number] [facility] 07:29:00 17:16:00 [facility] 2020-11-11 2020-11-11 Hospital TRINITY Denny [facility] [id number] 07:29:00 17:16:00 Encounter [facility] 2020-11-11 2020-11-11 Surgery Eduin [facility] [id number] 14:05:00 16:39:00 [facility] 2020-11-07 2020-11-07 Office DennyEli [facility] [id number] 11:45:00 12:00:00 Visit Nia Correa [facility] 2020-11-07 2020-11-07 Outpatient EL [facility] [id number] [facility] 00:00:00 00:00:00 2020-11-07 2020-11-07 Orders [facility] [id number] 00:00:00 00:00:00 [facility] 2020-10-16 2020-10-16 Hospital Justin [facility] [id number] 13:03:24 23:59:00 Encounter [facility] 2020-10-16 2020-10-16 Outpatient LEPOW, SLE SLE [id number] [facility] 00:00:00 00:00:00 ALEKSANDR 2020-10-16 2020-10-16 Outside [facility] [id number] 00:00:00 00:00:00 Orders [facility] 2020-09-04 2020-09-04 [facility] [id number] 11:50:00 23:59:00 Encounter [facility] 2020-09-04 2020-09-04 Outpatient [facility] [id number] SLE 00:00:00 00:00:00 ALEKSANDR 2020-09-04 2020-09-04 Outside [facility] [id number] 00:00:00 00:00:00 Orders [facility] 2020-08-21 2020-08-21 Office ROMMEL Duong [id number] 10:04:48 11:02:48 Visit Aleksandr Cross AMBULATOR 350.1.13.21 Y 0.2.7.2.686 [id number] 2020-08-07 2020-08-07 Office ROMMEL Duong [id number] 09:18:28 10:13:08 Visit Aleksandr Cross AMBULATOR 350.1.13.21 Y 0.2.7.2.686 [id number] 2020-08-07 2020-08-07 Office Eduin BCTracy [id number] 09:18:00 09:33:00 Visit Eli AMBULATOR 350.1.13.21 Y 0.2.7.2.686 [id number] 2020-07-25 2020-07-25 Office ROMMEL Kaur [id number] 10:24:58 11:19:37 Visit Peg AMBULATOR 350.1.13.21 Raejoy Y 0.2.7.2.686 [id number] 2020-07-17 2020-07-17 Office ROMMEL Duong [id number] 09:14:49 10:09:41 Visit Aleksandr Cross AMBULATOR 350.1.13.21 Y 0.2.7.2.686 [id number] 2020-06-25 2020-07-05 Hospital ER Suri Chahal [facility] [id number] 16:34:00 16:36:00 [facility]02 2020-07-02 Surgery Luisdimple, [facility] [id number] 12:35:00 14:40:00 Aleksandr Cross [facility] 2020-07-02 2020-07-02 Anesthesia Ijeoma [facility] [id number] 12:53:00 13:53:00 Event [facility] 2020-07-02 2020-07-02 Orders [facility] [id number] 00:00:00 00:00:00 Only [facility] 2020-06-28 2020-06-28 Surgery Eduin, [facility] [id number] 19:05:00 22:10:00 [facility] 2020-06-26 2020-06-26 Travel [facility] [id number] [facility] 00:[facility]:00 00:00:00 [facility] 2020-06-25 2020-06-25 Emergency ER SLE Emergency [id number] SLE 15:48:00 15:48:00 2016-09-11 2016-09-12 Bedded [facility] [id number] [facility] 15:41:00 21:00:[address] 2016-09-11 2016-09-12 Bedded [facility] [id number] 15:41:00 21:00:[address] 2016-09-11 2016-09-12 Outpatient ROCIO RoperC [facility] [id number] 10:41:00 16:00:00 Eddie 2014-03-06 2014-03-06 OBS Day [facility] [id number] 16:57:00 21:00:00 Surgery r Jamul 00 l [facility] 2014-03-06 2014-03-06 OBS Day [facility] [id number] 16:57:00 21:00:00 Surgery r Jamul 00 l [facility] 2014-03-06 2014-03-06 Outpatient Lee, 2.16.840. 2.16.840.1. 4 [id number] 10:57:00 15:00:00 Jean Carlos Deras [id number] 01 Results Test Description Test Time Test Comments Results Result Comments Source Tissue Exam 2021-06-14 21:10:16 Test Item Value Reference Range Interpretation Comme nts Case Report (test code = 104) Surgical Pathology Report Case: [id number] Authorizing Provider: Aleksandr Duong DPM Collected: 06/04/2021 01:00 PM Ordering Location: [facility] Received: 06/04/2021 01:45 PM SERVICES Pathologist: Mattie Varma MD Specimens: A) - Soft Tissue, Other, Left 3rd digit proximal phalanx for BIOPSY B) - Soft Tissue, Other, 3rd digit left foot DIAGNOSIS (test code = 3220) e2yyeLEwVCBts1uhMQCeeTWlUjNaUfLrSeUqGf dWMxIHtccnRmMVxlcGljOTYwMlxhbnNpXHNwbHRw G2BkgcmqFNphBA3bEW6pmDnaiFQygASiSQEgScLm m1set641aKRef4dfNVCTgzsroFg0sPibF16gx9P2 TkynF6kvNTYbVQtiAFLfZNadaBPjVKp0ZANfzWPr vnKkKlQfBZXkfLXkaXM6TSFoDF8gjtfnNWpoYKmg BFZjyyO3IGWpoTSbB2VsXXTiTV2mlyxkNDN8JLgn DDEkNWR6FfPdMLCkx1Xwtff2CkYgwASmWOigtAEp hbjygvDjGTOcYPJNSfOOZ24UCLIYHKDOUSAYA3To IDNSRCBESUdJVCwgUFJPWElNQUwgUEhBTEFOWCwg RjyUTJQVLpewGFMgHJYhAHQWS5PVUHCAB9GMP05A HPbLFRhDKXMzeqrhRLMvKa2sEg5WROroHUPEUBUC V85TJPSpMnVmFLnHMTLjTPGLFlDEISvxJR7FPLCK XXwVZtmyiIIsFB6dVSSJAKYDDmVIGW0XQEcPPJxc U3YHQ3DOXl2PMsCSNCRUX3ANE5utELPaYZKqFIHD MY3aDB4BGQOWTkWkSOyTC8SHJU9QCnvWWdODRHUR FPMnrFIbTW5vKKQhVEyFDEKMBHUSRMOSBTFqIk6I BHKCWLCCJQCQIYKUMX4PNEXDPZkQFIgGEDWgvNDo RDLyoe04OWF3SeQqt7U5VOG1TXLiJMQqy9siFXMc bFUnByKsKpXsGiMgWxktbLOrXPEeCkEor3rnv086 bSNsh8ccXPSiVsH1vVCkHRCxiWFxQ216FBOjLUrd x7ysc1RaHJFpwKNnq8E5FSASmraluQr7sYepQ27p p3S5MefeN6qxPJYeMHDgO8WiKZ7qHWSyGfe5EGU1 PDU2UZCyFVTkF6YcXQ2wWMDalALcBXl4q0fvmEww VXQzEGE1n0crAYtfuoBmLW5htl2ziHx3x6rzqwUn SRCaVBNvgXMOQZGeI1ScyTqpDj8cnEw2sUkxEpmj JUO5Iap3ZH2ixi33skj8uPukNJXcatjiOnL6KWir CWIqxkpeISx5VQgeSLFhdFK6OFFcyNDsV5DhEZTo ZB9czci0GNL1DFzrPGMrMzH8RUUunYRnVTPknSuv TTrqz213CGY2KyZpZG8vA8Ddi0J9hA9gsAWfLCTk iUYrCaAgAYZidm4owZNuEDmnm2SrYMV0hsS6aFVa oHPeVCVwCsH0XAutQB5jmh19IIWyUTU0ta1ofSOm qJqvesJzpYTlXCkvA6IzQPGic256ESGyL0VxPBRm d9O7sePiJaTcPYXtfAC9mvF7NJNgGN5oipxbq1oa ZLnpVRtzYDEoshW7uiO1LHAuuALbW1GjaR1aYERd ZU3gkenpx0koXWJ8EOymKUQoVIR0ViGgGBNfh0Lh mnl5EhPav9StkCVaOPjhL10rs370YSFuwkKhH9xt hPCxvkskdZXyxtdsHNvuneB0NYSgFGtjuelwWPVn IEriC8hoFmHxDAIbrIyyNSgzd0JdHTHnWGIzFtEu xDDuAZEuKjl5HHQggWJiIGBxNhOkA0lxfpqvYmAJ XVChp9ioW3mawCXSpQMeW3VuKXftfrKmKPwgJWoh TAXmVAI6QU65MOitTEJpby97 CPT Code(s) (test code = 3357) h3tyxEVgOAShsQP9VzCuCGXgp0agk3CazXLi cGFy OQpqsUBquuFaku56zRY4gN01MS6wVTTmEzY6MEAf ewO4Qcr3VECcXNSwbNPbJ819d2daz2mobzEydCT2 hFtaMWZpyixiTrP4BZvdJZSojwsaKIo1XEnjVFHk cKY0NQDjpARyE5VmUQBxUZ0bcxg5HUD1VBzjCTZd TmG0TUKglOVyMKNgmKybZXisr839PGQ8GuXlPHJw wgRceKttuH8eRvHsDWS0EVQlELLQZAEpTUz4WmZm IFggMlxwYXJ9 CLINICAL HISTORY (test code = 3356) t3orkEEhYGSgfGN3GiTcFKIuj6hlg4I sdHBncGFy FNkfvIUjtvWqku64gII3sF11RG9yVQBtGbU3OXLp nhW7Fej6BYKaAHYewGRtU748p9vcx2sczjLklNA4 aInqBUDurwxnOvO8VAkhZKLowooqGOj1VLihFHOn xGO2RMTmhKMlU6WbCCHiWR5zjrz0CGM6OZseVORd IwI5HANtlHJwJUZmpQynFYbhw789TVX7VoGdNPHp ywLbiUhwpN0nWxYiGJXGl9Kgg684CGwmpAeiUQTk k6kfFCOsRWTpi350WXNwsMKpxD== SPECIMEN SOURCE (test code = 3377) d7pfkJVsGNPazNE4PwBxGMKqy7egy4Wh dHBncGFy TWrllVKqlxBzhg69cBH8jI35DF0kVYIbXvW0HIDw teJ3Kia3PHQoFLZviQAyW442c0zun8kizjUmyRY3 eDaxDWDvqxwlDeP1THkyPNLlnkdhJQi1JTmrIQBp zFP9QJIanZKzG0SnGZAmIR1zbin7ZBF7NIjjKILl QsU8QWVctPAlGLGrvJznECzjd647IOQ8TkTrJLVi coQksYrfeY4ySrOnNUUKZRX6SRTdh2GfaRWbjG== GROSS DESCRIPTION (test code = e4oqhILwUNNdvYQKKTFmZ1ypqgZeEMJdmQJt [facility] [id number]) ynexFMniDA3mLD8mxQojgPUckNBwJQ9KMJArIeVk ODWqfWAemhTzDyEdTFBqgPMbaEE1OATySH6ovupj EUygFWmvBUWayhZ5RDCveDMpX8LeGJNmRC2mxiie MMA0FXvgcP6mywSTAgemAr9ueMDsoNhnXyDiJeLb ULXtRIFeRXHzcRkpGWEkHUs8tK7UKnuhTHK1TRDI LcklGBDgLY3Xh3iyIZJxgJTlBEZ0ZKwzeXOsFTNr NLFgEDq8ATGoRHqpnDQaEW8qfBfzAuozwFcjd8Bi oUQwVAidLVJaKLFqYZwdHGAlCS1LAkRoZWGgVMHr JJCcWXi9IBt1PQ6QKvYrMOVwUBLfQSCyHHExCBu6 UKbaEM2NFMS1DHd1PHE8XhJ2XJGjMIPdQFEwUhUu SEEfBDPsPXxfXTlrwEVrJW5hdRyrtQYabgYKLsZJ q4E7GKBgj9P0QUupN9DzXBVmJUMflcOWWymdvZbb TmVzdERvYzEgDQpcbHRycGFyXGxpbjBccmluMCAN YpkfdGIryUsnjtItHJXfN6BekpTxYUwjTHYavt4u eWgvIErbFlKeNBHmc0c7aHG1qAZnfHL0oYTnlYjq NJ2reOMfYK3zNRpdFAnbsgLyp5BnGN11wAKkyqSt cuGsNgXyArGrkDgnv9DqWwOwqaVgMXIxZpN5WWLw OAR8OWWdOHCqiDW9TE5mTQRdU3VrwSdwnJWar5Mp aCBeeXBrPRJoQShufOSea70mJEIjIFxbUV34INlv bFosZTElkN6xaJyyZNQ1eBP3kNEvKKC0nhLsC9Qn CWNSjXBjy4Mvt8XrhubkWW9gVM7aGKMeTYGfa76t LIQvUXfcGN58CPzkBKawa5JfBZPzcGViEVESeUSc s8UaJ2fmSQ0lzGOhQgheHGI7JLQtwE2lXGewkRmq hAWaJTdniSuuxd76ZN6lZIEvYYRkK3RcIMAxYYUr nWRng8UiGxDcYBjbIK6aCUPySCYanRVgfN9dtlMu nqOnrZXkrVU3UGHuBY69gSLtiBkufO9eY4Gcz4C2 uXJpMMRpIZQndJylr9quLpXyXLRztVRtGrfjQDPb s99jXZvgzvBcEGfyhyTrS5uWJthyhEEiybbsfFud [file] Cn0= MICROSCOPIC DESCRIPTION (test code = q7qocFPwOWNkuDW0IfJoMTFst8csb9 BsdHBncGFy 3371) DTuwvVXgjhSozx47qJS6wQ95ZQ6aQKAoIrZ1NFUx xjX7Xib1ESQfMIUopWBqL859k3hgy2hofvVvgJL9 gMmxUTUpkgjoHhV3NNdzFLGigxnoAXi3IAlhLMLf pLK2MJBdgYQoW9SbPTSpKU1bqec8AJD7CDbkBORh RoE5NFHwyADlSVOqwPxwVKsbd297PKZ2YtFqMYIa rlOonQolaM3kPeEhTSLYYRYcw4RtRCZzNLFxfu9= Gross assessment was performed at (test [facility] enter, code = 2777) Department of Pathology, [address] [place] [address], Technical component [place] performed at [facility] [place], (test code = 2778) Department of Pathology, [address] [place] [address] 33846, Professional component was performed at [facility] enter, (test code = 2779) Department of Pathology, [address] [place] [address], [facility] [id number] 21:10:16 Test Item Value Reference Range Interpretation Comments Case Report (test code Surgical Pathology = 104) Report Case: [id number] Authorizing Provider: Aleksandr Duong DPM Collected: 06/04/2021 01:00 PM Ordering Location: [facility] Received: 06/04/2021 01:45 PM SERVICES Pathologist: Mattie Varma MD Specimens: A) - Soft Tissue, Other, Left 3rd digit proximal phalanx for BIOPSY B) - Soft Tissue, Other, 3rd digit left foot DIAGNOSIS (test code = r9ogeUAdCECyk1psMUXtgFB 3220) uZzEwMzNcZnRuYmpcdWMxIH tccnRmMVxlcGljOTYwMlxhb hImCEAqvXYuA0JaliryECxf ZW4sWM3lxBdjlGRcsEEtQXG zHeWaw8rwx139pHMse3ppZG XVubqgkQc8cJwuO39dp6T2K oxlM7ubTZAoYAneRSToVLjr qPDeVVe5OVMwbUDsuoKnSmZ tDBQyqVOmuTN3BKAaNA2kah tsQZlcQRswNSMltdF0VQAnd NEpM3CrMBYxUJ9zszibCDI5 TTllHPCqPLI4YnHuUPMnm8B cpxd0JvMqaUOzIRczwXYvdv wwtwChGBMvSURLDaJMX83XP VWUKBVTHANQB3VaLSCXFTXZ SUdJVCwgUFJPWElNQUwgUEh BTEFOWCwgQklPUFNZOlxwYX KbEMPpBQSHQ2OUUNTPT6ADP 01ZRUxJVElTXHBhclxwYXIg Yc1eRv2DZDwyLWDTKYMAJ87 ULCAzUkQgRElHSVQsIFBBUl XZKTvyCM7XXVFBHZoFAeooq NFmVK0aOAFWCPWPYnQINI5V YItAPQpcT9RNZ1VNCd6VRiA EBTLUM4OQJ0ecEHZyKPHzHT CTUK4lLB3HSLRWGkNmDLePF 7YOGW2LTriEUoNVRGVMRISj wOIgLJ1mXWJpVNnGJOZXDHF XNTMTXYQcBu0MJGPAMHVFKA GOPYXGLL1KWZTKHOtKFLiQM DYmvWTyIGMndm13PWJ7TzHa b1Z4KYB2VCFsNAQal0lbMWJ mbGFuZzEwMzNcZnRuYmpcdW HgNTRmYsHhh4qra948xPSvq 9ipSWKjGhX6rHItVGUwtDMj S451AXUjHCeae5ifd1JqZIF ncLAho2V5ZXHLikskgKs6tS zrM13jw4E8AnxiE4fqMZYjI MBfO8IyYS7pIVAcTiq2FQO5 SLY7FEErYLLjQ4RxBA1kMHB krOIiCKy1m6ybsPqkJGZxBH K3z3ceKLrgxzBlYE8anf8sh Sx2f7xnljFdZRVeFBYnfWTE RXZzV2OlhDiqXk8qcLg5rCe eYmpyWEO2Tpo7AT9jvp30hb q0gWtmLRBbxfgwDaN3JDxtH NKifysqZYf2SAlhSNMzkTI4 IJUzwIQwS0ZuXGGbCT6ztok 6MVX2SPztAMWmZpX8MRHwaD OfJFIywScaADvye678EEV8N yRtBM2fM9Zre1V6qC6lxNRh NUFwoOKcGzXkNXJvht5yeWT wVUeed8AbZPI6ywO1jCMqkD IyHDGjFnP2FZrpXQ7eor01Q RVtWIS8ay7arZCekTeqejKf eCGeSUptM7PmWDBuu591LTH yX8YlBQXwf9F5coAwCnOiAK LgcSO8tuS4CWNwHV2jlytda 2ieGImyFEvmALUuuvS7tfW7 PAUdbDNqF2EolV2yIAOiZU2 fakydr3ezABT0FNauPGWcAY Z3TdOsKFOro5Bduwu8XfOvy 0LsqQXtXIwxQ50ss508XSZy lsEvX4zqjBRmcogutBSajzt hYBxjvrG1XDNbASlakivoFE BmVBroA2wqYsWtIZWvxMvfI Xnlj8RvTJXaFLOoCmYuyOYr LTVhUec6KSGbrVHeMXExVgP sI3ooitamBlRACLRpc0rgL6 vkwWQUyBTnI3MiESjlxwZdU NxyJFrmLAXhPHV1YI97CNyc SKPcii92 CPT Code(s) (test code d7tfrRFpBPFvaKM4ZgFnMFT = 3357) rn7iza5PzqOIxgHWiUCldlY VtamAadv63eFM9uJ77RY1jL ZMkGzN4RSJruuN4Flg8FORf DRYyqINzF290m0rgy4zppuA puKQ8wHhmZSGqimlsMnV8MQ doQZBzgmprWWc5HTpqAEMbo VD4BHOjbEVdK5HaPZTcFP5z rrj4WVW7YWsrEXDoNqA5OJC ipOVrUTRzlScbZYxil857BB L3FvSzJMDsfgMymCtcfL1qX xJhQYE4PYIsBVINVIBgPHp9 MzExIFggMlxwYXJ9 CLINICAL HISTORY (test w5slrPOrWFYyaJG2DuVfBWM code = 3356) vz8atx6YcgYNjbEYzPIygjO KoulZbxc99hFT9jJ88ZH7tM IMnLkO8JGRdiuZ0Yvo7NBFt NMTecCFmC019k4kks6knihB hxIO4fRvhJKSdqsxqByD7DQ lvTSLmgcndZZy0VTfrBJWnr LH0YRWtaKNeY5TzCJZvXE0g zis6CPW6MSlfUAAjCkW2TCO acCMaNARijPwjOJrbx988MZ L1PqMtIUBkzwNmgOopmK0tO aVoFWUJo2Joi776XHdipUjw BHFbm4qwHUVySSUvr668JGE ccGFyfQ== SPECIMEN SOURCE (test h1byfBHsVMQjwSB8SgAvWGF code = 3377) wj7nuq5GkgXCdbKFnVCeczS GzxaPsie07sCD0bL49KT4nT RWfXdV1UOCmtaF3Vqt5EZMd THFwkIJrH276w1xon0qvbdU utDD5qMiuMMPwpmzzUxE3VA rvPOBwwtibOPs2OMmfBPYje YB8DJMfmGScH7CdHMLxSH4o rlr6RNY9YNnvCANbDxT8SKI qpTFmIQXfhOlyMOfpz862VI W2ZvDgDJTbwiVuwBatjI2mY wChKZOQRWL4IOBsv5JilWJv fQ== GROSS DESCRIPTION y0olnPIrTKXohUSNHFFqI8q (test code = apwTfCXKlhBAjC0XcoapvUT [id number]) bcZI5dDF7ytVzbdZRheJKvS C5LNQNwFxOfCTKcdZIspqXp RdXoSHOhaRXknBN9RAEvUX6 ctrbtIZvyYMqsKIElyfK6FL ShvYKgA5DkJYBoBW6ihcztL YT8QMipcI6mhgLLUkpsWl2i dHRibHtcZjFcZmNoYXJzZXQ nGXNybIbbKZGiUSk8sU5TIk rlMCH5PNOZXqlvBZMeSL7Gx 1bqWUYldCEpFJK1YIspkGNm FYRxJLQmDBq1CUVlFMnqnZH dZS9ypTvxJkgjyOpem3BmrZ BcXGlkIDUxMDAyIFxcZGIgI A8FJxHoUXFvOSOwADGuNUt4 PVe6JQ6JIpNsZDFsFMKgDRW aPDSeNUs4VZfeVV8XFNA8EG x8WPH0QeQ6MYFwEKDoAXOmX iBcXGYgQXJpYWwgXFxmbCBc YN8rvJwvgPDplcOLOaYId9H 5NHVno4Z2KBfeT5HaSUVdMF BhciANClxlcGljTmVzdERvY zEgDQpcbHRycGFyXGxpbjBc cmluMCANClxsdHJjaFxmczI wYRZqX2SmqkHdNIisWNNwjp 6hbQyoZUisOpAxEBFou5c7a RR4aUBqeGW8xQAmfMkbFH6c cIZhCX7yBBqpOUwlfaHhm5A cTA57rSExjlDiluLtFlAfYd XooXxyu3WiWvFycrWvIBNkQ oE2ERRmIER6DVOeEMHqoIL8 JE7jIMTuR1IfuUzejFQqb7O yaGFnaWMsIHNoYWdneSBib2 6gLXFzBKheOY55DIkivVspV ZKxjB8hjZuzATZ1bIQ4hJAd ZSC0kgMmL7XpIEIXoRZfg9I hl2VrlgidMS3zSE9iSEDnXG Aia65zBFApAFhuTW16WIgoK Pkfg2AdIMMbsWWsAMLOmVAz u9KaF0djJJ0tvICfMdysUAB 5VFBbnX8oPSnjfUjtmIBoFD oefJufer82KC4lURMiGHEiR 3LcBSElJAJmrGMmn3UrAfWs XIddIA4bHEVeMBOtnIQglC8 cocZcspUdlEHlfVF1MASoTH 50tEMbpIyozR1cB6Ipf0T1e VDjOOXyPWQbjTmdz2pfRwXz EVRpvYTaYutdLTAti03sFAy qtfWlCArvtoKeU3iFUhvinE FpblxlcGljTmVzdERvYzBcc BpfcM22RHUwmAXhYRX7QD8c AMJvxuthQPPeGEGiPJF3ZKa vkT28aXKjACYiUKNscQVxkO 1Nb0cdQVHqsGVrHQW3HUgdl AHmLINjAQCiSGjiDvUsD9EL OKUaOZBxSgRwGlDtTKq2OIt iY8ZIKGWmIZA2IxAqEUK4Pj J4XMt8HYSVDt4eTYTpVUA7Z lD9KOH8BxQ2HZekbMLxSPoc ZiBBcmlhbCBcXGZsIFxcbmN 5HQUlVEOxcHrczB4hUy0tT7 4jyGTLfTYweSOvJB36lZWdL aqzHOCmGSnpHTShG54lq1IK a2JnAT7FMCc6ynMcwcabqA7 cUJUivjDlWGxnsANzX7fdWw MyMCBSZWNlaXZlZCBpbiBmb 3JtYWxpbiBsYWJlbGVkIHdp dGggdGhlIHBhdGllbnQncyB jKH2sJFSzAUSvT4DlYVQhH4 5zGHFwtO0oVICfLV8iLUC6d CxpYTPkhWodhKDnWWJ7TWIg j6FqUSjrQWPiYG27LZrsTH3 7JNalVN51NAKsHZQjPLB1wL TcTAFtIFjyyFLatKQ4c9AsB FoaIKXhYBVrCTXri2JsjMmp xRjfhCExFJVpX64xvvNko3V lMx1iMJAtqGZofjMxgnovIB 21NWOfIIQmo01uoMroEJDyP pUtgLxvx8KjPA3auhkoxn9q IFRoZSBlcGlkZXJtaXMgaXM vqHGeWOqgfA6zgZYyIUWuQG J1qDVvNJMiccWyKYZjBNX3F DXyISFyyULpqpUvfg5vms64 ipH2fPUqokDvjlS8dOEabZx hbnRhciBzdXJmYWNlIGxvY2 M8KWWpDP1tYVWgRHMls36ks HmuEPYwa9cxtGLuSMCpoB0m oPKtA0swRjAzINxvQIEkflJ ibM9gGFRqnBmmFjR4pTEzeK zyKFZwiQNeUIjif4girvOez jQhiiP6JYKrlpGbmfZvs13a hG8uyLcvONTpgQtfIXTWWIX 6sL7dXTYuIUD1RSxfmdJzNt W3GQTtS3MeTQVsLTEfn7pqx TLiJY0umjunvwRrTlk6SZPv suggIMkcnvDrHuP1BSQxjP9 0o5e0YHMzpIIueDcbRJscdJ JiV3umFJOhxP1wDVNtHIDtH 2JmdXjgKYJEAekeVz3jUHI5 uwFsjrd8uT3oSFVoW5GwLVQ au5zkz9cglzzkLVZsXNeoqB PgW6M2aL8qXJxyipLmXeT7H FUjo6FnjUnonEygdTKmDDUd YEggIi8goS22eW7lZFVnK6Z lP9gikXNroLmaywwrlA8oDP yhvS0gXRDNLTttkPwkoJ1bT MJmH07wg1XFh2SwUGKxJNgl q2rqnJmhs5UtxCMkGCkgNKE nhFSlODarwH4fHsVvc2aqnH p3CZftpgI7EOZkjh6YEbjmr R6vHaBjk3rxdGq1UJEKDbxb kdX2a0eqcExgg7GruFNyEC9 NCn0= MICROSCOPIC a6kgvMKkQQRwjKT4OwHnDKX DESCRIPTION (test code zf2hct7ZmqBZvjVNsCXftaK = 3371) HhchRwal21kXB0aF12MY3rU DYwUhK1ITCgvuG6Ybc4XINh VUIyiAHfK387k9dkn8amifO xnZY0eIrbYAAuetxaTtQ8VP svIDKvnjudNUu2VQicMKArh XN7ENEkoADdO2AiNHRtRI1o esi3QDF9DZhvJFHeYlU5VGI rdNRoFMOrcXajUMyan633BI W1CwSjSITovuReaPumlN5eM uOgUUCORRZsc5LyAHAbYROa cn0= Gross assessment was [facility] performed at ([facility], code = 2777) Department of Pathology, [address] [place] [address], Technical component [facility] was performed at ([facility], code = 2778) Department of Pathology, [address] [place] [id number], Professional component [facility] was performed at ([facility], code = 2779) Department of Pathology, [address] [place], [place] [id number], [facility] [id number] 21:10:16 Test Item Value Reference Range Interpretation Comments Case Report (test code Surgical Pathology = 104) Report Case: [id number] Authorizing Provider: Aleksandr Duong DPM Collected: 06/04/2021 01:00 PM Ordering Location: [facility] Received: 06/04/2021 01:45 PM SERVICES Pathologist: Mattie Varma MD Specimens: A) - Soft Tissue, Other, Left 3rd digit proximal phalanx for BIOPSY B) - Soft Tissue, Other, 3rd digit left foot DIAGNOSIS (test code = z0gqfGUfVYUnc4klQQZdzLB 3220) uZzEwMzNcZnRuYmpcdWMxIH tccnRmMVxlcGljOTYwMlxhb pGiQROmdIWjD3YzvoebNQyy JR4uCW1bgDxelFZfjEUeBBA uCcDxb8pra832oRSrr7njOK WYybqluCo0zUqwF41tf6W0O dgbZ7niMUSwKFnkGBZvKRzo vUSqQNp1KMAazTByogEuHlC kSDRztLDvtAN4VNAsVU3ljy qvAWhtVFtpMWWcypW1LIJzt RJqT9VuQSGhSF0dlsloURB8 GMvrWWSeLIJ1OlVkDPTrk0S tcrh7OnVmcWYqSQlwzYGiyc kiedZwEAHxGIRXKmRZJ02TD ISOFYWXNWJUM4FjONHXUEXQ SUdJVCwgUFJPWElNQUwgUEh BTEFOWCwgQklPUFNZOlxwYX MrEUKmKWTRP4AFJXBZC9YOV 01ZRUxJVElTXHBhclxwYXIg Sc0uOg8NMIayJPOTKXAXH93 ULCAzUkQgRElHSVQsIFBBUl EHDGhyWL2NWMUPWBjEMkamx AHlCT3fTGZKOYITEaAEDD6B UKmIWAjoY4KDC0UPZp3YMuR KFFWHC5BTD6clBXWeLQFxEF TKHW4sGO5MXYGKLyNxNRyUU 2ZQXL1NByqQBgJLWRTIMRYp wHMkLP9hJQAwNRsYJEOAYPJ FIHXFSSReNm7PFQYGZQKQWH JMBVQOVV5RPAPFAJiBERcKM WXgzSJqPKXmxn23CKW3BkFx v1T9VMK5ETJoZAVly3nkZBN mbGFuZzEwMzNcZnRuYmpcdW KgSZNlKqPpo0ufo296cRZqx 2lqBNCuAlM0pJGaDPKujJDc Q533SASjHZfzg2nnl6XcDPR goHKue8D6UOWEdtkdkTq5yO jmX67ob5G5BnhoB6tdPHNzP PXhO5CoCD0cKWUwThi0ONQ9 WPI6UHJjBTBrP9YhCI0iIXQ xyPBxJAn8w4hjtPttYTJnTS P5d6lqAKsablTyTS8oxe8lt Eu2f3eztaVkBEElACSamETS QVAvQ9XtcSkjBt3ejGm7mZe oLbjeIQQ6Hkx9TU2ixr76ri u9zTdnSSWdvjxzHlX7EQykX VUzuuqaCId4CIqjJIVikDM1 UNDnuPWbC4ByRLAbEV9szzj 2SJH6ZJnaUZFhFyT5PTDmuO OnYCRknBlnBEucu856NON2J pGkKL8kH2Oah1L7rM8dcJDj YAHtzTQqRfUiPQPrls9jrVR gSEwcy0HjUSI3wpU9oJGesV FzCOJrCxU3MOlnBW6gsu52I UUaXXO3fa0nqBBqpNjqnkSi pPMtBPomT0OdPFNnk313DMM wC0PmQMYgz3K2owRvAyEdRR ItwNW4olX5XUMlIE6tjibmw 3nzYSzzPOswEUMttzL0xzB6 XECulLJvE8CcuE9lKPKvEY8 ovdzgi3adKMB7LZywJFDkMD T5VoRdBJCet4Dqyld1YcQac 6FiwOIrPEzlK33pa552UTWg sgObU7tnsXOznhzgxRAsgzo tWZawnyI1ZSGaYRelnhziJL BtKRujZ8xkWpSxIRRhqUqxP Rfxr3QhQOEnYYLuEdDmiAJi EVVxEun2DZGjlVSeIEUqJrD cG3zhuvryBjGONQLlc1edH3 rylBIYnLOpH9TiEEmgigRpE CukOMfaDGYiXDN5SK55IStl FDHegq39 CPT Code(s) (test code w1sbgWJvSQVjoAX5MzIqJTB = 3357) py7pjn7MnpOWhkNRjTVkdrW XrrhZxvl69zIE1nN42SQ4xD SYdRnK8PIUizdH5Enz7RBXt XPOfzNKjA487t4egn2grpwY tuSA9pAhlCHGcuxqpUpL8CF nsQSIqmrayHVt4DImjQWBqa OB8RRWctDMoM2QlTKXuXW2c dsp4PEH8DAtjEKGiBfH1EZN smSPiSEDumYuaTDanc931MA I9YjTjGCMiqxMpgUrttE1dE hRzVAX8SKVmKFGXPHTcZCn6 MzExIFggMlxwYXJ9 CLINICAL HISTORY (test m7heoNWrRALwdFL6FyPsMSA code = 3356) gk6bok6LpgSKhiTCqEZhfoG UillYoot44pDL9cE70EK5jL IGuQsI7AGIievU7Qew9IPTd EABjoCBuR221l9ams6xfreY lfXX6wYlzDBAgorbhQlB5FY clHASyagvqELn5KZsxZUBkc MN7MPZcoAYjM6DuVYQmQI5e ilg2ADO4KJejWQNoJoZ6SJM nwBWwVIKecJqsCJibx419LY F7TlTvGXAqpfElaLimrK6kN sMaJRDPk8Rdr773IDswiOpm DTQgx1jxBVYjJHZoz459GYP ccGFyfQ== SPECIMEN SOURCE (test v3dydZYcMXUsoPU9FaKmLCP code = 3377) kx4bsp9ZenNDvbPTaLDigfY MaswFsfh98dXP2fG26OL5zN OSnXwQ6CKRivoU7Kqy1VOXp QFVcdUKaF793e0shl5xgukX meQN6fQifSROiybfwLaC7KA rsUWCsmgesEMh9GBijOPDtr VD6CCLpaQMmC1KrOKYxXC0g nnd4XIR4SOtzBIIhUpM3YTP ydZCqYGPryBinAFeze158BB H6HzQlYJOrjzXygCtqlL2oZ cQrNHVJJSF5TIGgy4BytJEp fQ== GROSS DESCRIPTION z9ymkNEhHCOblNXWKGHcX5t (test code = obaLrGEHcgACgC4VemjozOR [id number]) zrZY9gON2gyDasgAVskHWzC H9GVODzMrAbZLIevORixkOm TeQaJNOmsROrzKE7QBEkOO6 etedmAVfpUNgiMLIfuiC7QU DiiJRlK8MxPEZgBD2kwyniJ GZ2SGatkI2wnfLIHpecJx7d dHRibHtcZjFcZmNoYXJzZXQ kKEUefIlpCOGoBVg6lU3KPb kbLWZ0IUWJOmnmPTAbRT2Xn 9fmMXFefCKyGNZ6HMprvHXf QIAuZPGtSQq5XMHuXUrzdVC nCO1qqEckWczgiCzfk0UfgN BcXGlkIDUxMDAyIFxcZGIgI V1LLyEzDBAlKZEkJYSdGWf7 LUd6PJ0PXrHnZARwAFMpPZQ vLXDmRSl4PUvqWT9MPZB7TR g9IWW6QjM0UZLmBMUyHLGeF iBcXGYgQXJpYWwgXFxmbCBc BA3iyZougBHzwzUDUfIEd8X 3QSQhr9V6BJsrC4HvTJQvUO BhciANClxlcGljTmVzdERvY zEgDQpcbHRycGFyXGxpbjBc cmluMCANClxsdHJjaFxmczI sIUYsJ9MitgUgIItaSMUkzb 5fcDqbAPvwKxEhADYnv7o5n QU8hULsePJ8jVLawZedWO8m vICtGE6sVHufUNeidqMrp0X iMS66lFOfofXknfYcXvQxJb LfbIbaj4ShFbQzlzKjBQQsX pC2CJDuOHC2OAImLENzxEV3 ZP7mLMRnW2CvqIhajQOxy9Z yaGFnaWMsIHNoYWdneSBib2 1hPTUyCQudYV75IXfxgCvjB OLvmK8foHjtGOH2zWP2nJZk UUE1ajWpM8AiYADGhOAuw5R os0WlnmcjCV6cPP4iEQKlWQ Esz63dBITxTKvcCL87BVkwA Ufzx2HlMIZtpKTmZZUSsYQm w4OmJ6ljVA3axAXdGbtfIDF 1EPNarE4nNEnewHmthNWrCS vopVflht97OA2gUTJpUCMoF 8UrMJFjNRCszMKen2YyPyPs TUirAP4oSNLlMPMocWUghD9 jrzFnplQjbTGhzVA1YQVtVQ 93cXBvyPonwM3wS9Sig9Z1y MIlNIUwBTXfoYoyb7qiZgWx IKLwsUXqOuvtIYTal07vAYq jseLkVOrqkdBzA0qFUuohxW FpblxlcGljTmVzdERvYzBcc CxoxI68NNMclGQxRDE7WA4p NQWbpoiqMMCnARQgYCM7BAh nqG84vPAjBCZuBUWueOLxhL 6Ed5mmWSOjcKCoMTZ5EDtjo KRmMHSkVUQiYHpxObCoJ3WH VHRoIFAmSoEpMtQjKOv2HLs bG5WYXFDhFLS3JkOuBDP7Ap C7OEi0XDEDDb8lMMOqSCE4E sG5LDD7GmW5TPctuVUfQOrh ZiBBcmlhbCBcXGZsIFxcbmN 4SMCsVKWzbZiklB3tBc9iP0 1tiWNXxDGsmAVtGE65mVXdB fbiCTZlYXaiPFYnI11cx4QQ k5KfLW0OYZk4gkVmfgoowY2 mJCEakbQzGDwklRGzY7kkKj MyMCBSZWNlaXZlZCBpbiBmb 3JtYWxpbiBsYWJlbGVkIHdp dGggdGhlIHBhdGllbnQncyB yCJ7yWPMwPCIzO3RgBPHgV2 6wQJScaV6sRZWgUX4kVKG4s NtyVPCxxQrlzYRsHDI7TMRc s6XmOLgtINVgVH47VHxfFR3 1HVbvPM03HYSeZZCqBGE8nK JhGUJiYXtioSJhyIG1e1GfU AxcAAEbMIFfJEBmm4YvePql rHcrvYOmTHBmB56iojWzb4S oZt0rTUIulTPvpyBftqzfRD 49AZGoBQIlx57asNbuGNHnW sHknEawl2DfAC3kkqiurg8l IFRoZSBlcGlkZXJtaXMgaXM iaBKnBGepfK9fnIKpVALyBU K1yFCuHDGkzbDbHTIvLOE1R EZxZEFqdAHvsmSvix5iea39 djX4oXXrrqCpyqJ7fKWkyNp hbnRhciBzdXJmYWNlIGxvY2 T2LFPgVQ2iJTVlNGWai09ob UbvDUOvb5meaMRiGPCuaJ8i qQLeR0opPqUtSKliJYWnqmE mxY0qPQMweJwhZjV9tFBhvB ibNJUpeSItXHqtp8llqbOrf rXsqqE1JIQngzKgvmQqz77k kH6zqQazDUVlpFuoJHNVSJT 5eO6dIYMzRDN4KVkhhxGaYs G6JHNbH8UbNXThQGJwu9bya TFkBC4sanpehgRhTlv1DBZh vopcFWgmdiLtOaF4LYKtaC3 8y8s1RELgkSXdfBcwPEebmY OhG6cnQLNopQ3jCVZmBJHsD 2BtjXfbQNURGvdlAx8zIUH0 wnDuzvp5eY5yDEByW9IhGVJ vv8ymm4vtvxgpTYQbCMyibS ZyH7W4oZ4cKLmrljDoOzP2O AQkf0QnvKbboBzyxMHfFHJf VEmqWw6qcB57yW7xSJDjD1W zE6ofdUJgoRxoleozqG0aOA tcnM6rEMAGFTwvpCitcD8nL GVfJ55ks2NPl2CyTITpZJvk p8meuYdkq8LsbBKcIFdwDUZ whKJvLZdhxK5oIzPbq0vjiN j5WYotomD8SIFfqa0AJfotb K4tIpRiq7ubiRr6INVKHagx osM7q1rvqLeol5NokCBaXW6 NCn0= MICROSCOPIC n1fjlASbOKWryYN2BqLzIJB DESCRIPTION (test code bv6mpu4GuxIAosUTbKLtnrS = 3371) HwwiPveu42qLF5hT27ME4gZ UIeLdT9LKVycbV2Dky5RWOu NEDfjOVjF177s0uxl6enqoL jeVD4jJxgRKTafalkJzY8NO zxQJWtkbtwDGy1ZYasQWEve QS1GOFabDMmA8BwVXOtNR0i ljr4FRU1UBydXDYfDqO7PSK lsMDbCLSqgRdpYPska169BU H2ZfIdWIZdlpXwlCajyC3uG pRaGCZBWPBfs4BeQVOwWPRx cn0= Gross assessment was [facility] performed at ([facility], code = 2777) Department of Pathology, [address] [place] [address] 748[address], Technical component [facility] was performed at ([facility], code = 2778) Department of Pathology, [address] [place] [address] 69486, Professional component [facility] was performed at ([facility], code = 2779) Department of Pathology, [address] [place] [address], [facility] [id number] 21:10:16Surgical Pathology Report Case: [id number] Authorizing Provider: Aleksandr Duong DPM Collected: 06/04/2021 01:00 PM Ordering Location: [facility] PERIOPERATIVE Received: 06/04/2021 01:45 PM SERVICES Pathologist: Mattie Varma MD Specimens: A) - Soft Tissue, Other, Left 3rd digit proximal phalanx forBIOPSY B) - Soft Tissue, Other, 3rd digit left foot A. BONE, LEFT FOOT, 3RD DIGIT, PROXIMAL PHALANX, BIOPSY:- ACUTE OSTEOMYELITISB. BONE, LEFT FOOT, 3RD DIGIT, PARTIAL AMPUTATION:- ULCERATION WITH GANGRENOUS NECROSIS- SKIN AND SOFT TISSUE MARGIN VIABLE- DISARTICULATED BONE WITH ACUTE OSTEOMYELITIS Signing Pathologist Direct Phone Line: [phone] signed by Mattie Varma MD on 06/14/2021 at 9:10 [id number] X 2, 25375 X 2Osteomyelitis ankle and foot Left footA. Soft Tissue, Other.Received in formalin labeled with the patient's name, medical record number and "soft tissue" is a 1.2 x 0.5x 0.4 cm morales, focally hemorrhagic, shaggy bone [...] epidermis is morales wrinkled and there is a1.0 x 0.9 cm green-brown ulcer on the plantar surface located 0.2 cm from the proximal skin margin. The bone underlying the ulcerated lesion is coley-morales and soft.Section code:B1: Ulcer to proximal margin (blue ink)B2: Uninvolved proximal margin skin, en faceB3: Bone underlying ulcer, following decalcificationB4: disarticulated end, following decalcificationSHPerformed.[facility], Department of Pathology, [address] [place] [address], [facility], Department of Pathology, [address] [place] [address], [facility], Department of Pathology, [address] [place] [address], NSX, FOOT, MIN 3 VIEWS, [id number] 13:10:00Reason for exam:->[facility] : 1945 Sex: [...] CONCENTRATION Adequate (CELLAVISION)(BEAKER) (test code = 3438) Supervisor Quality Control ID - Ponce Stallworth comments: Slide comments:CBC W/PLT COUNT & AUTO [id number] 12:27:49 Test Item Value Reference Range Interpretation [...] (BEAKER) (test code = 413) BASIC METABOLIC [id number] 10:35:58 Test Item Value Reference Range Interpretation [...] S NOT APPLICABLE FOR DIALYSIS PATIEN TS. Supervisor Quality Control ID - BSPOC-Glucose [id number] 07:57:19 Test Item Value Reference Range Interpretation Comments POC-Glucose Meter (test 180 mg/dL 70-110 H : TE STED AT [facility] code = 1538) [address] [facility], 770 30: Supervisor Quality Control/Techni heather ID = [id number] for ROHIT Murillo Lab Interpretation (test Abnormal code = 85217-6) [facility]-Glucose [id number] 07:57:19 Test Item Value Reference Range Interpretation Comments POC-Glucose Meter (test 180 mg/dL 70-110 H : TE STED AT [facility] code = 1538) [address] [facility], 770 30: Supervisor Quality Control/Techni heather ID = [id number] for LUZ MARINA MurilloA Lab Interpretation (test Abnormal code = 59896-1) [facility] [id number] 07:57:19 Test Item Value Reference Range Interpretation Comments POC-Glucose Meter (test 180 mg/dL 70-110 H : TE STED AT [facility] code = 1538) [address] [facility], 770 30: Supervisor Quality Control/Techni heather ID = [id number] for HARLEY -Dillon, LATANDRI[place] Lab Interpretation (test Abnormal code = 37581-8) [facility] [id number] 07:57:19 Test Item Value Reference Range Interpretation Comments POC-Glucose Meter (test 180 mg/dL 70-110 H : TE STED AT [facility] code = 1538) [address] [facility], 770 30: Supervisor Quality Control/Techni heather ID = [id number] for HARLEY -Dillon, LATANDRIA Lab Interpretation (test Abnormal code = 40577-8) [facility]-GLUCOSE [id number] 07:57:19 Test Item Value Reference Range Interpretation Comments POC-GLUCOSE METER 180 mg/dL 70-110 H : TESTED A T [facility] 6720 (BEAKER) (test code [facility], = 1538) 26522: Supervisor Quality Control/Techni heather ID = [id number] for LEWI S -Dillon, LATAND OG POCT-GLUCOSE [id number] 22:44:00 Test Item Value Reference Range Interpretation Comments POC-GLUCOSE METER 153 mg/dL 70-110 H : TESTED A T [facility] 6720 (BEAKER) (test code = [facility], 1538) 77477: Supervisor Quality Control/Techni heather ID = [id number] for DARRION GARRISON POCT-GLUCOSE [id number] 17:03:50 Test Item Value Reference Range Interpretation Comments POC-GLUCOSE METER 148 mg/dL 70-110 H : TESTED A T [facility] 6720 (BEAKER) (test code [facility], = 1538) 70822: Supervisor Quality Control/Techni heather ID = [id number] for LEWI S -Dillon, LATAND OG POCT-GLUCOSE [id number] 13:48:08 Test Item Value Reference Range Interpretation Comments POC-GLUCOSE METER 149 mg/dL 70-110 H : TESTED A T [facility] 6720 (BEAKER) (test code = [facility], 153) 87755: Supervisor Quality Control/Techni heather ID = [id number] for Brandon lobato, Moses POCT-GLUCOSE [id number] 08:30:33 Test Item Value Reference Range Interpretation Comments POC-GLUCOSE METER 162 mg/dL 70-110 H : TESTED A T [facility] 6720 (BEAKER) (test code [facility], = 1538) 36935: Supervisor Quality Control/Techni heather ID = [id number] for ROSIE So [id number] 05:34:01 Test Item Value Reference Range Interpretation Comments PARTIAL THROMBOPLASTIN TIME 45.4 seconds 22.5-36.0 H (BEAKER) (test code = 760) POCT-GLUCOSE [id number] 22:31:51 Test Item Value Reference Range Interpretation Comments POC-GLUCOSE METER 145 mg/dL 70-110 H : TESTED A T [facility] 6720 ([facility]) (test code = [facility], 153) 44112: Supervisor Quality Control/Techni heather ID = [id number] for MARIO FOX POCT-GLUCOSE [id number] 13:17:41 Test Item Value Reference Range Interpretation Comments POC-GLUCOSE METER 152 mg/dL 70-110 H : TESTED A T [facility] 6720 (BEAKER) (test code = [facility], 153) 65337: Supervisor Quality Control/Techni heather ID = [id number] for UNIQUE SINGER POCT-GLUCOSE [id number] 10:28:49 Test Item Value Reference Range Interpretation Comments POC-GLUCOSE METER 132 mg/dL 70-110 H : TESTED A T [facility] 6720 (BEAKER) (test code = [facility], 153) 27954: Supervisor Quality Control/Techni heather ID = [id number] for UNIQUE SINGER [id number] 05:42:20 Test Item Value Reference Range Interpretation Comments PARTIAL THROMBOPLASTIN TIME 109.7 seconds 22.5-36.0 H (BEAKER) (test code = 760) [id number] 22:53:04 Test Item Value Reference Range Interpretation Comments PARTIAL THROMBOPLASTIN TIME 102.5 seconds 22.5-36.0 H (BEAKER) (test code = 760) POCT-GLUCOSE [id number] 21:17:31 Test Item Value Reference Range Interpretation Comments POC-GLUCOSE METER 131 mg/dL 70-110 H : TESTED A T [facility] 6720 (BEAKER) (test code = [facility], 1538) 90658: Supervisor Quality Control/Techni heather ID = [id number] for Ng shaun (contract), Sarah ra POCT-GLUCOSE [id number] 17:50:58 Test Item Value Reference Range Interpretation Comments POC-GLUCOSE METER 151 mg/dL 70-110 H : TESTED A T [facility] 6720 (BEAKER) (test code [facility], = 1538) 00296: Supervisor Quality Control/Techni heather ID = [id number] for LEWI S -Dillon, LATAND OG [id number] 15:38:28 Test Item Value Reference Range Interpretation Comments PARTIAL THROMBOPLASTIN TIME 57.2 seconds 22.5-36.0 H (BEAKER) (test code = 760) POCT-GLUCOSE [id number] 12:54:42 Test Item Value Reference Range Interpretation Comments POC-GLUCOSE METER 152 mg/dL 70-110 H : TESTED A T [facility] 6720 (BEAKER) (test code [facility], = 1538) 83226: Supervisor Quality Control/Techni heather ID = [id number] for LEWI S -Dillon, LATAND OG POCT-GLUCOSE [id number] 08:26:04 Test Item Value Reference Range Interpretation Comments POC-GLUCOSE METER 133 mg/dL 70-110 H : TESTED A T [facility] 6720 (BEAKER) (test code [facility], = 1538) 90333: Supervisor Quality Control/Techni heather ID = [id number] for LEWI S -Dillon, LATAND OG [id number] 08:17:46 Test Item Value Reference Range Interpretation Comments PARTIAL THROMBOPLASTIN TIME 86.4 seconds 22.5-36.0 H (BEAKER) (test code = 760) SRIRAM's Only(Ankle/Brachial Index)2021-06-02 08:03:53Ejection FractionSLE ECHO HEARTLAB MKCKESSON [facility] Only(Ankle/Brachial Index)2021-06-02 08:03:53Ejection FractionSLEH ECHO HEARTLAB [facility]CKST[facility]AB[facility] Only(Ankle/Brachial Index)2021-06-02 08:03:53 Ejection FractionSLEH ECHO HEARTLAB [facility] SRIRAM's Only(Ankle/Brachial Index)2021-06-02 08:03:53Ejection FractionSLEH ECHO [facility]2022-04-25 00:44:06 Test Item Value Reference Range Interpretation Comments PARTIAL THROMBOPLASTIN TIME 114.8 seconds 22.5-36.0 H (BEAKER) (test code = 760) POCT-GLUCOSE [id number] 22:35:29 Test Item Value Reference Range Interpretation Comments POC-GLUCOSE METER 161 mg/dL 70-110 H : TESTED A T [facility] ([facility]) (test code = [facility], 1538) 19039: Supervisor Quality Control/Techni heather ID = [id number] for DARRION GARRISON Arterial Doppler Legs [id number] 19:15:49Ejection FractionSLEH ECHO HEARTLAB [facility] Hospital[facility] Legs [id number] 19:15:49Ejection FractionSLEH ECHO [facility]ARTLAB [facility] [id number] 19:15:49 Ejection FractionSLEH ECHO [facility] Arterial Doppler Legs [id number] 19:15:49Ejection FractionSLE ECHO [facility], [facility]OT, MIN 3 VIEWS, LEFT 2021-06-01 18:40:00Reason for exam:->rule out osteo 3rd digit left foot [facility] : 1945 Sex: MFINAL REPORT TECHNIQUE: 3 views of the right foot. INDICATION: rule out osteo 3rd digitleft foot. COMPARISON: None. FINDINGS:Erosion of the tuft of the third digit. 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 Extensive calcification of the arteries of the ankle and foot. IMPRESSION: Acute osteomyelitis of the tuft of the third toe. Signed: Jayesh Lino MDRepstacey Verified Date/Time: 06/01/2021 18:40:50 Reading Location: [facility] C013Y [place] Body Reading Room APTT 2021-06-01 18:31:45 Test Item Value Reference Range Interpretation Comments PARTIAL THROMBOPLASTIN TIME 58.0 seconds 22.5-36.0 H (BEAKER) (test code = 760) POCT-GLUCOSE [id number] 17:10:34 Test Item Value Reference Range Interpretation Comments POC-GLUCOSE METER 144 mg/dL 70-110 H : TESTED A T [facility] 6720 (TagooAKER) (test code = [facility], [facility]) 40976: Supervisor Quality Control/Techni heather ID = [id number] for ST OJCIC, NADA POCT-GLUCOSE [id number] 12:20:53 Test Item Value Reference Range Interpretation Comments POC-GLUCOSE METER 143 mg/dL 70-110 H : TESTED A T [facility] 6720 (BEAKER) (test code = [facility], 1538) 29891: Supervisor Quality Control/Techni heather ID = [id number] for ST OJCIC, NADA [id number] 12:06:45 Test Item Value Reference Range Interpretation Comments PARTIAL THROMBOPLASTIN TIME 63.1 seconds 22.5-36.0 H (BEAKER) (test code = 760) POCT-GLUCOSE [id number] 08:15:50 Test Item Value Reference Range Interpretation Comments POC-GLUCOSE METER 116 mg/dL 70-110 H : TESTED A T [facility] 6720 (BEAKER) (test code = [facility], 1538) 13514: Supervisor Quality Control/Techni heather ID = [id number] for BESSIE HARPER VITAMIN B12 AND [id number] 07:04:04 Test Item Value Reference Range Interpretation Comments VITAMIN B12 952 pg/mL 213-816 H (BEAKER) (test code = 774) FOLATE (BEAKER) 13.00 ng/mL See_Comment [Automated message] (test code = 362) The system which generated this result transmitted ref erence range: >=7.00. The reference range was not used to interpr et this result as normal/abnormal . Supervisor Quality Control ID - PIAYA L(CELLAVISION MANUAL DIFF)2021-06-01 06:54:17 [...] CONCENTRATION Adequate (CELLAVISION)(BEAKER) (test code = 3438) Supervisor Quality Control ID - Ponce Prasado-onUser comments: Slide comments:CBC W/PLT COUNT & AUTO [id number] 06:54:16 Test Item Value Reference Range Interpretation [...] (BEAKER) (test code = 413) HEPATIC FUNCTION [id number] 06:35:05 Test Item Value Reference Range Interpretation [...] (test code = 11 U/L 6-55 347) Supervisor Quality Control ID - DBC-REACTIVE [id number] 06:35:05 Test Item Value Reference Range Interpretation Comments C-REACTIVE PROTEIN (BEAKER) (test 2.32 mg/dL 0.00-0.50 H code = 676) Supervisor Quality Control ID - DBBASIC METABOLIC [id number] 06:35:04 Test Item Value Reference Range Interpretation [...] I S NOT APPLICABLE FOR DIALYSIS PATIEN Supervisor Quality Control ID - [id number] 05:49:53 Test Item Value Reference Range Interpretation Comments PARTIAL THROMBOPLASTIN TIME 41.1 seconds 22.5-36.0 H (ERIK) (test code = 760) SARS-CoV2/RT-PCR (Asymptomatic ONLY)2021-06-01 05:02:05 Test Item Value Reference Range Interpretation Comments SARS-COV2/RT-PCR Negative Not Detected, (test code = Negative, See 49967-1) external report for linked test SARS-COV-2 [facility] (test code = 82422-2) CACH[facility]RO (test code = Negative result for [...] of the Act. Fact Sheet for Healthcare Providers:https://www.qu idel.com/sites/default/f sarah/product/documents/F act_Sheet_HC_Providers_L hjs_EQHR-ApO-8.pdf Fact Sheet for Healthcare Patients:https://www.[employer]/sites/default/fi les/product/documents/Fa ct_Sheet_Patients_Ly_S ARS-CoV-2.pdf Performing Laboratory:[facility] [place] [address] [facility] (Asymptomatic ONLY)2021-06-01 05:02:05 Test Item Value Reference Range Interpretation Comments SARS-COV2/RT-PCR Negative Not Detected, (test code = Negative, See 83524-6) external report for linked test SARS-COV-2 [facility] PERFORMING LAB (test code = 25400-5) CACHORRO (test code = Negative result for [...] of the Act. Fact Sheet for Healthcare Providers:https://www.[employer]/sites/default/f sarah/product/documents/F act_Sheet_HC_Providers_L wxk_JEDX-WnG-0.pdf Fact Sheet for Healthcare Patients:https://www.[employer]/sites/default/fi les/product/documents/Fa ct_Sheet_Patients_Lyra_S ARS-CoV-2.pdf Performing Laboratory:[facility] [place] [address] [facility] (Asymptomatic ONLY)2021-06-01 05:02:05 Test Item Value Reference Range Interpretation Comments SARS-COV2/RT-PCR Negative Not Detected, (test code = Negative, See 34540-6) external report for linked test SARS-COV-2 [facility] PERFORMING LAB (test code = 26921-2) CACHORRO (test code = Negative result for [...] of the Act. Fact Sheet for Healthcare Providers:https://www.[employer]/sites/default/f sarah/product/documents/F act_Sheet_HC_Providers_L yfc_KRDR-AqJ-9.pdf Fact Sheet for Healthcare Patients:https://www.[employer]/sites/default/fi les/product/documents/Fa ct_Sheet_Patients_Lyra_S ARS-CoV-2.pdf Performing Laboratory:[facility] [place] [address] [facility] (Asymptomatic ONLY)2021-06-01 05:02:05 Test Item Value Reference Range Interpretation Comments SARS-COV2/RT-PCR Negative Not Detected, (test code = Negative, See 06366-5) external report for linked test SARS-COV-2 [facility] PERFORMING LAB (test code = 58231-0) CACHORRO (test code = Negative result for [...] of the Act. Fact Sheet for Healthcare Providers:https://www.[employer]/sites/default/f sarah/product/documents/F act_Sheet_HC_Providers_L jjb_RNEL-QyA-4.pdf Fact Sheet for Healthcare Patients:https://www.[employer]/sites/default/fi les/product/documents/Fa ct_Sheet_Patients_Lyra_S ARS-CoV-2.pdf Performing Laboratory:[place] [address]2/RT-PCR ([facility])2021-06-01 05:02:05 Test Item Value Reference Range Interpretation Comments SARS-COV2/RT-PCR (test Negative Not Detected, Negative, code = 6204307) See external report for linked test SARS-COV-2 PERFORMING LAB [facility] (test code = 1101793) Negative result for this test determines that [...] of the Act.Fact Sheet for Healthcare Prov iders:https://www.Brand.net/sites/default/files/product/documents/Fact_Sheet_HC _Tqpcbelns_Sbfj_JWWR-BpS-4.pdfFact Sheet for Healthcare Patients:https://www.[employer]/sites/default/files/product/docume nts/Nunx_Hkegp_Nxywkqrh_Hjeg_JUSJ-MgK-5.pdfPerforming Laboratory:[facility], [place] [id number] 23:51:02 Test Item Value Reference Range Interpretation Comments PARTIAL THROMBOPLASTIN TIME 50.6 seconds 22.5-36.0 H (BEAKER) (test code = 760) [id number] 22:57:30 Test Item Value Reference Range Interpretation Comments PARTIAL THROMBOPLASTIN TIME > seconds 22.5-36.0 HH (BEAKER) (test code = 760) POCT-GLUCOSE [id number] 22:35:55 Test Item Value Reference Range Interpretation Comments POC-GLUCOSE METER 149 mg/dL 70-110 H : TESTED A T [facility] 6720 ([employer]) (test code = [facility], 1538) 00790: Supervisor Quality Control/Techni heather ID = [id number] for MARIO FOX POCT-GLUCOSE [id number] 17:26:04 Test Item Value Reference Range Interpretation Comments POC-GLUCOSE METER 187 mg/dL 70-110 H : TESTED A T [facility] [address] ([employer]) (test code = [facility], 1538) 21824: Supervisor Quality Control/Techni heather ID = [id number] for ZIGGY CAMILO BASIC METABOLIC [id number] 15:13:01 Test Item Value Reference Range Interpretation [...] S NOT APPLICABLE FOR DIALYSIS PATIEN TS. Supervisor Quality Control ID - SARBJIT [id number] 15:10:38 Test Item Value Reference Range Interpretation [...] 0-0 (BEAKER) (test code = 413) POCT-GLUCOSE [id number] 16:02:46 Test Item Value Reference Range Interpretation Comments POC-GLUCOSE METER 75 mg/dL 70-110 : TESTED A T [facility] 6720 (BEAKER) (test code = [facility], 1538) 28946: Supervisor Quality Control/Techni heather ID = [id number] for LINDA MCHUGH RAA POCT-GLUCOSE [id number] 15:30:00 Test Item Value Reference Range Interpretation Comments POC-GLUCOSE METER 74 mg/dL 70-110 : TESTED A T [facility] 6720 (BEAKER) (test code = [facility], 1538) 56433: Supervisor Quality Control/Techni heather ID = [id number] for Andra Louis BASIC METABOLIC [id number] 09:36:15 Test Item Value Reference Range Interpretation [...] S NOT APPLICABLE FOR DIALYSIS PATIEN TS. Supervisor Quality Control ID - NIURKA [id number] 09:30:12 Test Item Value Reference Range Interpretation Comments PARTIAL THROMBOPLASTIN TIME 33.8 seconds 22.5-36.0 (BEAKER) (test code = 760) Prothrombin time/[id number] 09:29:16 Test Item Value Reference Interpretation Comments Range Protime (test code = 16.6 See_Comment H [Autom ated 5902-2) message] The system which generated this result transmitted reference range : 11.9 - 14.2 seconds. The reference range was not used to interpret this result as normal/abnormal . INR (test code = 1.36 See_Comment [Automated 5811-6) message] The system which generated this result [...] valves. Lab Interpretation Abnormal (test code = 54864-6) [id number]:29:16 Test Item Value Reference Range Interpretation Comments PROTIME (BEAKER) 16.6 seconds 11.9-14.2 H (test code = 759) INR (BEAKER) (test 1.36 See_Comment [Automat ed message] code = 370) The system [employer] h generated this result transmitted ref erence [...] 0-0 (BEAKER) (test code = 413) SARS-COV2/RT-PCR ([facility])2020-11-07 20:30:42 Test Item Value Reference Range Interpretation Comments SARS-COV2/RT-PCR (test code = Negative Negative [id number]) Negative result for this test determines that [...] 564(g) of the Act.Testing was performed using Humanoid SARS-CoV-2 assay.Fact Sheet for Healthcare Providers:https://www.[employer]/libby/RT SARS-CoV-2 HCP Fact Sheet 51- 521875.pdfFact Sheet for Healthcare Patients:https://www.[employer]/libby/RT SARS-CoV-2 Patient Fact Sheet EN 51-429245R4.pdfHIGHLAND[facility] W/PLT COUNT & AUTO LLCGUEVKLKAQ0251-09-21 14:10:03 Test Item Value Reference Range Interpretation [...] CONCENTRATION Decreased (CELLAVISION)(BEAKER) (test code = 3438) Supervisor Quality Control ID - Niurka Mahajan comments: Slide comments:BASIC METABOLIC [id number] 12:39:39 Test Item Value Reference Range Interpretation [...] S NOT APPLICABLE FOR DIALYSIS PATIEN TS. Supervisor Quality Control ID - [id number] MPROTHROMBIN TIME/[id number] 11:55:55 Test Item Value Reference Range Interpretation Comments PROTIME (BEAKER) 18.8 seconds 11.9-14.2 H (test code = 759) INR (BEAKER) (test 1.60 See_Comment [Automat ed message] code = 370) The system [employer] generated this result transmitted ref erence range: [...] RIGHT GREAT TOEReason for Exam:->RIGHT FO[facility] PAIN [facility] : 1945 Sex: MFINAL REPORT Exam: Right foot three views History: Amputation Comparison: August 27, 2020 Findings: Amputation across the hallux MTP joint. Overlying soft tissue irregularity. Soft tissue swelling. No progressive erosive change of the metatarsal. Vascular calcifications. Small calcaneal enthe sophytes. Impression: Amputation across the hallux MTP joint. No progressive osteomyelitis. Signed: Barbara Eubanksort Verified Date/Time: 10/16/2020 14:28:01 Reading Location: [facility] ReadingRoom [address] [place] [address] RAD, FOOT, MIN 3 VIEWS, RIGHT 2020-09-04 12:32:00Reason for Exam:->post-operative stateReason for Exam:- >status post amputation of right great toe [facility] : 1945 Sex: [...] of osteomyelitis. Attention on follow-up. Signed: Barbara Eubankseport Verified Date/Time: 09/04/2020 12:32:23 Reading Location: [facility] Reading Room [address] [place] [address] XR foot 3 views [id number] 12:32:00Interface, External Ris In - 09/04/2020 12:34 [...] Eubanks Verified Date/Time: 09/04/2020 12:32:23 Reading Location: [facility] Reading Room [address] [place] [address] [facility] [id number] 16:35:00 Test Item Value Reference Range Interpretation Comments Case Report (test code Surgical Pathology = 104) Report Case: [id number] Authorizing Provider: Aleksandr Duong DPM Collected: 07/02/2020 01:10 PM Ordering Location: [facility] Received: 07/02/2020 01:28 PM SERVICES Pathologist: Nadine Butler MD Specimen: Toe, Right, right great toe DIAGNOSIS (test code = h3tfgPToGNSeb1dqDQFvkSO 3220) uZzEwMzNcZnRuYmpcdWMxIH tccnRmMVxlcGljOTIwMlxhb oVeVXLfhSTsL0BcllfyHQyj SW2iHV5wrPqeuBYbvHAwPAZ rXwDbk7apy749gLNfy7amTM ZFdlykiRj5mIplR90oq7Q4I gjgL32tsGZmVCfeqOUjizyx nyTkOBWQP9FhVDQWN2wOSCm IYGjIWTnjDF8ULNOWFSiUQp mcwFAbCP5iY7OAW8ENCoAqG C0DH8gULH1IFZBQTB7wKF7S LRKUJxQxDPjNZ5WSWWThlyD dSJKRBnLuS8iUOUWXPiDEMo 8EAdAVBWKXRHRAKR2BF2TQI 0lTXHBhciAtIFNPRlQgVElT V5EEZUFGQIBJRARJXUTOMF0 jNF2JK5tNPUZaPwadGA9VRR TOWJCWU8UQQNOBX1BBW4Gfd BTyJA1fMUWWIBXZGPZVWULE UlRJTEFHRSBBVCBUSEUgTUF RH1qQZNNSOsODAGJAR9PLYZ XpoAJqSD4cYoKSPDCFCeUtS h4NSZ1PEGrGDbGNH6thoDWz DOIngo66QOL6FcTfc3A1KPS 7CSHwCEFay4tgARQoxXTvAy EwMzNcZnRuYmpcdWMxXGRlZ tIxi8itl163mFDwb8nrOWYz EhN9mHFfIBHowJZhI974ATD bURylz7fwo8WbBYYucZDgd1 R8NWQUbgjrdFa5eOupU63gb 5K3WmcwF0heLPMqPPPgY0My MN6pCYHiZnc6JQP7WQQ0AAB xVCKhX3PdFJ5oJUMtnTPnQB p6f3jpzMsdPZAjONE3w4sfH CpgaoCqDB4atm4oxGw2a7up fzMiOLAsQDErfDRVKQFgU7A iaJoqKa5itGl1iYueSsmcPR Z7Ana7DQ4evo11vxz8eQylU ICashodNcC3NAbqJZJddrrl LRo7ETkfUOJchHF6MCWnfAU wU1AaXPKiGY1tqfl2FVB8VL yuXZZxLoJ5BYDkjOQxNRJaq NmjLEmah036XSJ6OfXjEI5n Q3Xux8K9qP4tsREeGGKbcXO jWlAtAPWard0agEXiMZrix8 MjJCU4zdC1yIPxhRVzVLDhB wX0TOccTL8kil10OQOtFBM2 rk2byGWlkUvhekLutDXpHZt qY7JrRCYie156UXRmO3JnJV Xrg1N7bwAeErDwJSQgoOC6e wA8QISeFX9lhmmiv3rxXFwd WKxfCSLrvoG7rpU5PYRfkQY dW5EevD0dIWYcWF0kxsvno6 njOSO7PCphUYJlLWK5BlNnU OZds1Kssur7OwClu5DugCMc WOrkG97hp390WNAeetRlY0n wbGFpblxwbGFpblxmMFxmcz K2IMVxHXfcpkoxDTQrFVgfX 3ccBiSwFJLgsXyoGNelo1Hv XGYxXGZzMjJcdGFiXHRhYlx 7QLYmxRSxIWZxPqFlA1bmia wcKxHWOKIue8inR5kukURWj XVzW0PlLLeekdPwZNvuNFii GAPiLHA4AW51SNW9RLOecb4 9 CPT Code(s) (test code p2ecxXShEIUoiFF9PmEoTAW = 3357) lb8icu5PvcGYweWKdACfciD EnqxBehb21pXW3jM81CT0nT GBnMiN2APOkruN7Jjc8RQLr WHMyqBXfP300w2exj4fxyqR rvLQ4xXusUTCjUYRfMBwaRU UhRrObLDkyMSL8QIj4TdJaV HBhcn0= CLINICAL HISTORY (test z7mgmKRaXWRubDB2BgYaYRD code = 3356) zr4uei5NtfNYkyZSfFJgcmD HgqxVjyg63tEK9jX82UT9tG URfFyJ7XWFvifH1Qtt5BLJa JHQbwWVjC569d6qrv2ialmQ uyHB3aEvvCSTjHSXyDKgfHA BgLlSuV6EnL1FgjhDsfPYsv Q== SPECIMEN SOURCE (test i8lnbBBhVTIxcQR5MkPoWIA code = 3377) ty2tzb8GfaWLbxCTqNEalwX CmfeDvpe18jTN7yQ84GK4kY YSmMwB3TPAzpjD1Zct4MHXn LMGdwJAfB521o2dyu6obkcS jqSL5bSzlBNLbSXAlZCuwCI BsToKfPB6nWCQspTfezMfnS XJ9 GROSS DESCRIPTION t2ueeYWtKXWgdLZiTaXkJAB (test code = 3366) qKDSlg7lmRTHelIQqGaVaCj NcZnRuYmpcdWMxXGRlZmYwe 4jix568wGOwf7drZTYqIvU0 bLXcCMQjjQNtA710m8nvj6d twnKnlDG6XTAtJQB1GWwiog IibdZ3POtcyUDkDjA4YJhkd aGtORihrxZpjuBnYeh3QNCp K351IIG0rXpgo7ywHPD5YAT vVABfLvMwCu2naJOdC061XL YtERSMWZCvkTj8XQStxaIyo hVctHAWv185R514i0nmASGt gbBwbXtLaooox2juC341LEZ hcGVydzEyMjQwXHBhcGVyaD T8ZDRvVF4pkvpcHpLiFL4po muoHfKkKJ3ulyi4JnWeKQ3y cmdiNzIwXGhlYWRlcnkwXGZ ku8LvjdlhYT2hH2Rrk6P1kR 9maXRcZGVmdGFiNzIwXGZvc r8dgPCvQElbv7VsOYA3tzU6 bRLihVJzNPEpHD20Vfvgu6Q kXwdaZZQ5PZAeyzPsl4Ukl1 bgKuZeaaGyJ2mrM9WjBXLaC TRlTXVaZkXnvkXqk2Pos2Xi xFHyhPr7l3mgCAVpTEKygFk vy1glXXI0FGGqF0D1nIHnz7 taDXnbOMCnyRV0ufufTPnnL XGteoW4jnwhZGfrZFUwfAU7 ekmvIZbwONSlXuQ0ndtdRCh gVDCxUHL6AOark258HYX7XI xzYmtwYWdlXHBnbmNvbnRcc GduZGVjXHBsYWluXHBsYWlu XGYwXGZzMjRccWxccGxhaW5 qMvRvZgEiZAqpZK4eNCYjY7 hhdUIdGUDsVEIsN6gxNeZcu X2puMlbSHwrdmVpPOCtITMj V8AwklYaCSTwTJBqQRsvLsR sWWZps1c2nAH0aFPtxIU7cP WoiUzjKfPbSD0acFHfRE9gT XciVGgudyKzs7HoYS25nARp ciBhbmQgInRvZSwgcmlnaHQ fBWgeBKVcQQbbKTX0eAS6uY C0KWZwwW0cPO3iJGD1mkxzQ tI1OxToC62tkS1jwYUqK4Ej IGFuZCAzIGNtIGluIGRpYW1 ldGVyLiAgVGhlcmUgaXMgYS Zwq22aYIf4AJH7mBFylFQlN IB2kHmdo1SmCRYbDXFouu19 QQoxi7voxB7vsLjeXoFfQCi iWYlkuGZgZBdtn4JrXiMoGW VkxZElcLH6ngCqJYYqnPOcC loeuDGyXfMfH11xR7AqI4Mx re61ekW2hMFfvmZff0ValTM jSPPlNyJrtGHdjl3tPYCvLD Gmv5qwSX7mpczjpcKfynZzB RFzgNMcri0zAPBqCGBwiFQa yiGlC2NrODVxVEJsr03dBfI wDAtnduZojGFnNW6fNFV8ta PrboLmQM9olN07VX5xYOBjx Q6aHPffV24ja5DayGhdivS8 tWLyHIAmrBLwLOxuMMN3niS ddL3eeR9sNYNoOLT8jPQldr 2cICChRYK1ncJcoyl2pA8bO GJvbmUgaXMgcmVkIGFuZCBo AH5qkoOqERftVfmrED1bUBO 9pQTlYUWvcLi9VFekfNuwLX BwN5AzjXFtWETqXBUlJwCuL gTfmgAxRQ26BGZxorTtg5Fa hPwktxOxMGGhJHU1Uo1fbDL rJA1duDXfEGRbeiFYDEB9jS 1yGLKzLHZ4BFHhkyGTUNxjE AfzFXWxiY8kxQdoIIFmi6Mt h4Ocs1jvhjCmLQFnbE9zLHY nhQMnWKXwRFKbPP6iaUQ7jG YdDRIoW0Amu88gBPoaxQscs A5yVFWadXycKeOsd88eDCIp c4ulx9xbavxvAFUkUHdznOV hL3X1bT2iTDIzcmDUPdyaCY epOFO0mYB2iHR1OEHhQH5lZ Z1vKZElabNzFZLzLNYvM1Gy YKAncAtnq4ecNiSuIAZxxYV yLeufWLFtq18riRFqUFFjtn NAtPSft4IiUOmmGZDcHONFS MZkYGPFSMvKN7BJKMTuTMQo cn0= MICROSCOPIC v1pdfECxRQCkaJG2AmKeFJN DESCRIPTION (test code mv3xps8GweMDknHPnYRkrtO = 3371) GxyzRdop04eNC7bC29LV9xI KTeCdN1TWDpgiO1Uoo8VZWy SFJunNJzD730u9nzm3kcbcZ dfYE3yBqqUOYePHAzYYonNA SaSkQqBAQGQl2XSNHCTKLif n0= [facility] [id number] 16:35:00 Test Item Value Reference Range Interpretation Comments Case Report (test code Surgical Pathology = 104) Report Case: [id number] Authorizing Provider: Aleksandr Duong DPM Collected: 07/02/2020 01:10 PM Ordering Location: [facility] Received: 07/02/2020 01:28 PM SERVICES Pathologist: Nadine Butler MD Specimen: Toe, Right, right great toe DIAGNOSIS (test code = x5eaxHRnJERjx2bsNHLyiVQ 3220) uZzEwMzNcZnRuYmpcdWMxIH tccnRmMVxlcGljOTIwMlxhb fOgEGCuvYZaZ1MzljgpKMoh FK0jFQ9jcIkrvCDlvMVpSSQ aLvFhf3exa229qZWqk6vzBO YIglpafGl5bQpxS82jp5F2E nggR03xvLRtJXyaiMBnqrid deJlBTFFE9WaMIYXZ3lSAPu QZTnEBVnyPT9DUMACUXpZDx oukYGaAJ0pN2DYF4VRQsScD T4JC5pHSV1DAUTBJC8oTD1D PMGFPmBvIOaET7CGTLVobgI aOBSMWeQgZ6qKBCTHQoIICb 6OCqOLXDBFEZBOES7KB8FYF 0lTXHBhciAtIFNPRlQgVElT A7BITRGWAWFABRKXVUGEGS6 fVJ2GK6cNUTWdBddoRU4HVA RHNIRGE7QFHFYRA1SFF6Ccs WPoDG4oQKJJLSOXEGYAQPCH UlRJTEFHRSBBVCBUSEUgTUF NM4gZJJEVGuIYTIHYH8CPIG FnyLZoZC5uScTCHWAXQdOmK l5KVC2QJZvAPsQBX3frlVIz GKXclw25XQP3CzNxl4T1IYS 6JRSnPZHee8laCTYisMXpIa EwMzNcZnRuYmpcdWMxXGRlZ gBae5gwp022dZCcf2wcSFXd IzR0nPFrOPZueBJpM439VIC eZKwjp7xdg5NpJYIzvKDtg5 M0QFONdcvypQl8cTduK80qt 7O3AervS9pmTSUxCWTxS4Vq HZ2vZSDqGqf2BDR3XEN0IMP oJQVpS0RdXU6qNWFnfRNfCM e7j0ynhYdnFNIqKMO6j4iaW LzctpTqQU5rkd9vnDm4r8ef goVhFETsHOMztBXBURJkS8I kdFsbEh3msWl9lHhxXnhxSM D4Ump8ZI4sli96kyw7nOycL OXufgspUfS8EGafPZSowyjx OCr9LWbvWBLhsNN9EHMscNS aG8OqRSHdLF9hhbq4LDR7GA btORYfSvB2ILSeiKNcANWvo WitXLzme412EYQ4ZkMvZQ7c S0Smn1B8vH4rxPGpXZOgbYA wQxScONIijc3zqLVaKAqpb1 KuMZC9qxV5vRWiaLPsQSOjL bM5SEbyAS6ncm66OQKtWSY8 vs1rsKJumPsufoEneAJzKZz tX2HqVVRpe275FDKpH5VwYR Oos3Q6idMaIuOnITKusLF3t gC7JZKcSQ2ryqsjo7dhTDhu OZltASEghxC4kjI1BJWbgLC xK8BsaM7nYSLmWZ4sqvyto5 xmJJW4VGxuGBVnBPI3JlSqS QGba2Ecaxf0AlVuc2QdrOAt RGjsC15ja075KIGleuQlK7u wbGFpblxwbGFpblxmMFxmcz E3SWYcAXcowszuQFWgHJpkO 7awZlOtJQAlbPapIWfjx3Di XGYxXGZzMjJcdGFiXHRhYlx 3DDHmoCQfWWKbOfGdL2zwhx hnVwSQCFHdu1irW1epmSKWx ZGgJ5CxTIhqwoHwPGdfZIoo VZJxLCQ1AJ87VCA4ZOIukv5 9 CPT Code(s) (test code n4riyOPaDDVqwRF9GoArPVT = 3357) mo2yjl2ExpUOcyCEvIPhrxF PfhwVpsy29zQQ7rF74FN7gR WOqMeG5PILnwiM1Gme3CIWa HTGfhOEgE412f7rwi7ydunM vdAA2sBxpGBToEDBhPOzrVL MlOlXeJWpnIMJ4QJf6DlHhN HBhcn0= CLINICAL HISTORY (test z8byjPAvUEInaMC5FmJzDIM code = 3356) bw7gmt3RfrPTsuFIvYNiaeJ ArmrTmqh91tIN2yV40WJ2lC ZUvLjI1CLMjelC4Wcr0VVVn OVVlvZAtG908z3zca8lzyhQ sfMC9gRihKUGbZZJdOCawBK JfIcSgI4KnI9DsbyAbrOVrd Q== SPECIMEN SOURCE (test i3sbeYGmUEAusLV1EuJePGS code = 3377) fy1nbt9OzjBNngQKkGYkunV UmcoVfqi25nHO8wH52IL2wM IEjZfD5FGTtnzH8Kgs8ANNp AYLerHDrJ887f3hby8vbbqF htTB0mPtwHCArBYQpIXpkQZ TnIgZgIK6sHCMklBvepTfbW XJ9 GROSS DESCRIPTION z0lpxTKcCFTrrEUvSyTmUXD (test code = 3366) fHTPkv8kaDBZddEVuWaOlWp NcZnRuYmpcdWMxXGRlZmYwe 6agt528aIDwc3ygRQUfMvL4 vLRdFNNvgFOiZ168v8ckz3t hnqXhzGL9UZExLIP9XRzwjw CuhmQ7MCxqqIEtWcF4OCbjx zIvVHnmfqFigvVxZhv2WZYc V112SDO9aUola5vzRTI3GFC nPSCzKaKfMt8glRGuY266AR FrESLIOMPiqLo6JWVnyjWlz qZhkSOOl255A770y9dvSIFb meEmjBvTgdjan3vmF124ZKQ hcGVydzEyMjQwXHBhcGVyaD T7YAXhQY6pmmjqUwLqXL9nb gnjBpQkNM7gjks8NyTzVS2j cmdiNzIwXGhlYWRlcnkwXGZ jt7BfhhqoVO7yR6Fvy5D5gB 9maXRcZGVmdGFiNzIwXGZvc m8tmYXpRMxcr6McVTH3zgD4 yHFylBSsJWZyHN71Xrszj0C uUxvrQXS9CIWxidKwo8Bwt5 uzSgGdtdWeG0vzY5GrADJrH ENgXETaXzZemsMce1Ojn6Mt lEFnaZw2v5sfMGXbQKSvhCl yg5ekNWD0RUEkT6V8dESgw5 ssXBpcYWIghDJ9jcedDVcaR GHbpzA1szflPDgjYFBixBX4 tujmTLvqGFYdQsH6msujDJx tNTXuWPA6UAjcw097MCR7CV xzYmtwYWdlXHBnbmNvbnRcc GduZGVjXHBsYWluXHBsYWlu XGYwXGZzMjRccWxccGxhaW5 lQrSfMaLbUKweKO9vCAYqB5 eciFJbTBNeENJaB9ogAoQtc Y6viTyjLMfhfcObUGGeXTTh C3UnkrTvODUcOMWwIMfcDsV cZLJuc2x3dUK5lWEdxNN4vT VtrIdgUiLsDW9vjKCyLG3qO HcvTVdcvtJel3VqVK65xIOk ciBhbmQgInRvZSwgcmlnaHQ uUOajWCPhIQkxMEU7xZX8nJ B8CKIzuN9kLS9wAXK9ggikS wA0KaPoS62djB9hmHQsY2Sk IGFuZCAzIGNtIGluIGRpYW1 ldGVyLiAgVGhlcmUgaXMgYS Kst93kGQe9HML7cLXdeFNlE XM8hFyts3MlAJZwXWPaln63 OJwgp8guqC3nuDgfIvAjPXo hJMeldVOcGXghr8CaIeHoWU XqxBLktOP5rpIvLKIimASmF ozzmEIlDwGfN11pV3JzX5Ha zw07fgL0gBRxrpIct3ZstUP tVQCqHyJdqEWipd5zAXXiTE Xuk5yhVE5gynstkxBbogHiY GOpwLBibs6ySEQzRJLowGIz gkFjB3NwBUZcTMLfo52dEzS fCMwmoiJbmDZyDR8yGTB5ck LgfiRpAY9atU42BI3yEBTfb O6nTUltS67aj6BtdQvieaN9 gZEiHLHrgHAbEDhpYJP3ziU kfB6smT8uRMYtUVQ7mBCqcj 5lDDEjWFO0xrArssz1jI2iG GJvbmUgaXMgcmVkIGFuZCBo SH6hdzZlDDufMvbhBM7ySDR 5tUHtJQQvsLu3PZugdVtwZO ElS4WvtVNaKHTsYQAoEbMgK sMnvbXoUZ49HHLhilMzf6Ke lVcrhqLpTADhJYP2Zu7ezLX zVW1rdZLjYIVhcsOEROK9mQ 2uUBWxXAO8THKqdnTXRHmtO MglPQPjtF1liEyuPMFfo1At y8Isl6megnLyDPExxI6sFKU zyXCxPAPjQZZpQR9zeKJ0gE YcZZPtV7Yfn03tPGnxvHfda Z1gKARmxYxeTwZyf26jVAOs b3cbq3fwhiqxYAIaPMamuMF wC7I7uM7xKDObkiSFFrzxVG bbGRJ9xTM2aOR6SEEiTO2gU Q1fPLIcygImBFDhPTXvW5Aw UJMgzTimp3hlAbZfUSSleKM bZgxdIQFwl89fuILfLEIzos TDnOWzb3UjXKrmZVGjDPOFD HJxBQNSWLdPQ7DZVEByQZMt cn0= MICROSCOPIC j4iqrOQcREAmrPB6UxLgJTC DESCRIPTION (test code oo8bkc3VohVDorGGsKHbggX = 3371) NfsmPwsa43mKD2qQ37AT6dJ QOyTbA4RSFfkoF3Lrg8KYZq JUEstIHaJ651x2ote4nlhrL bsLG9aRtnCPPdWBZgAEcmWK DrGtOwGEROQt4FVQSEBRNug n0= [facility] [id number] 16:35:00Surgical Pathology Report Case: [id number] Authorizing Provider: Aleksandr Duong DPM Collected: 07/02/2020 01:10 PM Ordering Location: [facility] Received: 07/02/2020 01:28 PM SERVICES Pathologist: Nadine Butler MD Specimen: Toe, Right, right great toe FOOT, RIGHT HALLUX, AMPUTATION:- GANGRENE INVOLVING SKIN AND SOFT TISSUE- BONE WITH INTER-TRABECULAR NECROSIS- SOFT TISSUE AT THE MARGIN INVOLVED BY INFLAMMATORY PROCESS- ARTICULAR CARTILAGE AT THE MARGIN, UNREMARKABLE- NEGATIVE FOR MALIGNANCY Signing Pathologist Direct Phone Line: [phone] signed by Nadine Butler MD on 07/30/2020 at 4:35 [id number]; [id number], rightA. Received fresh labeledwith the patient's name, [...] and cuts easily with a scalpel blade. Barrel Rifler Button sections are submitted.Section code:A1: Ulcer to the closest skin margin (blue), perpendicular sections with underlying bone, following decalcificationA2: Disarticulated end of bone, en face, following decalcificationChelsea BRIANNA Medina PA (ASCP)cmPERFORMEDCARDIAC CATH REPORT - [id number] 10:37:11Ordered by an unspecified provider.[facility]-Glucose [id number] 11:15:00 Test Item Value Reference Range Interpretation Comments POC-Glucose Meter (test 283 mg/dL 70-110 H : TE STED AT [facility] code = 1538) [address] [facility], 770 30: Supervisor Quality Control/Techni heather ID = [id number] for LEIJA, SERKAL EM Lab Interpretation (test Abnormal code = 70648-1) [facility]-GLUCOSE [id number] 11:15:00 Test Item Value Reference Range Interpretation Comments POC-GLUCOSE METER 283 mg/dL 70-110 H : TESTED A T [facility] 6720 (BEAKER) (test code = [place] [facility], 1538) [address]: Supervisor Quality Control/Techni heather ID = [id number] for IB RAHIM, SERKALEM CBC with platelet count + automated [id number] 08:27:00 Test Item Value Reference Range Interpretation Comments WBC (test code = 6690-2) 15.3 See_Comment H [A utomated message] The system [employer] generated this result transmitted ref erence range: 3.5 - 10 .5 K/L. The refe rence range was not u sed to interpret this result as normal/abnor mal. RBC (test code = 789-8) 2.98 See_Comment L [Au tomated message] The system [employer] generated this result transmitted ref erence range: 4.63 - 6 .08 M/L. The refe rence range was not u sed to interpret this result as normal/abnor mal. MCHC (test code = 786-4) 31.1 See_Comment L [A utomated message] The system [employer] generated this result transmitted ref erence range: [...] See_Comment [Aut omated message] 777-3) The system [employer] generated this result transmitted ref erence range: 150 - 45 0 K/CU MM. The referen ce range was not u sed to interpret this result as normal/abnor mal. MPV (test code = 9.2 fL 9.4-12.4 L 26168-0) nRBC (test code = 413) 0 See_Comment [Aut omated message] The system [employer] generated this result transmitted ref erence range: 0 - 0 /1 00 WBC. The refere nce range was not u sed to interpret this result as normal/abnor mal. Lab Interpretation (test Abnormal code = 91804-5) [facility] [id number] 08:27:00 Test Item Value Reference Range Interpretation [...] = 3438) CACHORRO (test code = CACHORRO) Supervisor Quality Control ID - Irena Chen comments: Slide comments: Lab Interpretation (test Abnormal code = 61916-8) [facility] W/PLT COUNT & AUTO [id number] 08:27:00 Test Item Value Reference Range Interpretation [...] CONCENTRATION Adequate (CELLAVISION)(BEAKER) (test code = 3438) Supervisor Quality Control ID - Irena Chen comments: Slide comments:POCT-GLUCOSE METER 2020-07-05 08:06:00 Test Item Value Reference Range Interpretation Comments POC-GLUCOSE METER 149 mg/dL 70-110 H : TESTED A T [facility] 6720 (BEAKER) (test code = [place], 1538) [address]: Supervisor Quality Control/Techni heather ID = [id number] for LIN CERVANTES Basic Metabolic [id number] 04:49:00 Test Item Value Reference Range Interpretation Comments Sodium (test code = 138 meq/L 398-874 2946-2) Potassium (test code = 4.0 meq/L 3.5-5.1 2823-3) Chloride (test code = 107 meq/L 98-107 2075-0) CO2 (test code = 21 meq/L 22-29 L 2028-9) BUN (test code = 18 mg/dL 7-21 3094-0) Creatinine (test code 1.38 mg/dL 0.57-1.25 H = 2160-0) Glucose (test code = 161 mg/dL 70-105 H 2345-7) Calcium (test code = 8.8 mg/dL 8.4-10.2 36506-7) EGFR (test code = 50 mL/min/1.73 [place] [address]-1) NOT ACCURATE CREATININE CLEARANCE IN PREDICTING GLOMERULAR FILTRATION RATE . ESTIMATED GFR I S NOT APPLICABLE FOR DIALYSIS PATIENTS. CACHORRO (test code = CACHORRO) Supervisor Quality Control ID - [id number] [facility] Interpretation Abnormal (test code = 90861-2) [facility] [id number] 04:49:00 Test Item Value Reference Range Interpretation [...] S NOT APPLICABLE FOR DIALYSIS PATIEN TS. Supervisor Quality Control ID - PIAYA LPOCT-GLUCOSE [id number] 21:36:00 Test Item Value Reference Range Interpretation Comments POC-GLUCOSE METER 167 mg/dL 70-110 H : TESTED A T [facility] (test code = [facility], 1538) [address]: Supervisor Quality Control/Techni heather ID = [id number] for Raghu barone (pca2)[place] POCT-GLUCOSE [id number] 17:51:00 Test Item Value Reference Range Interpretation Comments POC-GLUCOSE METER 156 mg/dL 70-110 H : Notified RN/MD: ([facility]) (test code = TESTED AT [facility] 6720 1538) [facility], [address]: Supervisor Quality Control/Techni heather ID = [id number] for Marj Watts (CELLAVISION MANUAL DIFF)2020-07-04 15:55:00 [...] CONCENTRATION Adequate (CELLAVISION)(BEAKER) (test code = 3438) Supervisor Quality Control ID - [place] Astudillo comments: Slide comments:BASIC [...] S NOT APPLICABLE FOR DIALYSIS PATIEN TS. Supervisor Quality Control ID - DBCBC W/PLT COUNT & AUTO [id number] 15:17:00 Test Item Value Reference Range Interpretation [...] WBC 0-0 (BEAKER) (test code = 413) [id number] 12:36:00 Test Item Value Reference Range Interpretation Comments PTT (test code = 102.6 See_Comment H [Automated message] 38784-6) The system [employer] generated this result transmitted ref erence range: 22.5 - 3 6.0 seconds. The reference range was not used to int erpret this result as normal/abnormal . Lab Interpretation (test Abnormal code = 67483-6) [facility] 12:36[facility]00 Test Item Value Reference Range Interpretation Comments PARTIAL THROMBOPLASTIN TIME 102.6 seconds 22.5-36.0 H (BEAKER) (test code = 760) POCT-GLUCOSE [id number] 12:25:00 Test Item Value Reference Range Interpretation Comments POC-GLUCOSE METER 212 mg/dL 70-110 H : TESTED A T [facility] 6720 (TagooAKER) (test code = [facility], 153) [address]: Supervisor Quality Control/Techni heather ID = [id number] for Marj Watts POCT-GLUCOSE [id number] 07:39:00 Test Item Value Reference Range Interpretation Comments POC-GLUCOSE METER 162 mg/dL 70-110 H : TESTED A T [facility] 6720 (TagooAKER) (test code = [facility], 153) [address]: Supervisor Quality Control/Techni heather ID = [id number] for EMANI DELGADO [id number] 05:06:00 Test Item Value Reference Range Interpretation Comments PARTIAL THROMBOPLASTIN TIME 64.8 seconds 22.5-36.0 H (BEAKER) (test code = 760) [id number] 23:50:00 Test Item Value Reference Range Interpretation Comments PARTIAL THROMBOPLASTIN TIME 59.1 seconds 22.5-36.0 H (BEAKER) (test code = 760) POCT-GLUCOSE [id number] 21:25:00 Test Item Value Reference Range Interpretation Comments POC-GLUCOSE METER 156 mg/dL 70-110 H : TESTED A T [facility] 6720 ([employer]) (test code = [facility], 153) [address]: Supervisor Quality Control/Techni heather ID = [id number] for ANGIE OSULLIVANZELALEMLEVON POCT-GLUCOSE [id number] 17:25:00 Test Item Value Reference Range Interpretation Comments POC-GLUCOSE METER 162 mg/dL 70-110 H : Notified RN/MD: ([facility]) (test code = TESTED AT [facility] 6720 1538) [facility], [address]: Supervisor Quality Control/Techni heather ID = [id number] for Marj Watts [id number] 15:41:00 Test Item Value Reference Range Interpretation Comments PARTIAL THROMBOPLASTIN TIME 46.0 seconds 22.5-36.0 H ([facility]) (test code = 760) [id number] 15:13:00 Test Item Value Reference Range Interpretation Comments PARTIAL THROMBOPLASTIN TIME > seconds 22.5-36.0 HH ([facility]) (test code = 760) POCT-GLUCOSE [id number] 12:24:00 Test Item Value Reference Range Interpretation Comments POC-GLUCOSE METER 166 mg/dL 70-110 H : TESTED A T [facility] 67[address] ([facility]) (test code = [place] [facility], 1538) [address]: Supervisor Quality Control/Techni heather ID = [id number] for LEVON LEE SARS-CoV2/RT-PCR (Asymptomatic ONLY)2020-07-03 08:16:00 Test Item Value Reference Range Interpretation Comments SARS-COV2/RT-PCR Negative Not Detected, (test code = Negative, See 51487-8) external report for linked test SARS-COV-2 [facility] PERFORMING LAB (test code = 77439-4) CACHORRO (test code = Negative results do [...] of the Act. Fact Sheet for Healthcare Providers:https://www.Bumpr/Documents/Xper t%20Xpress%20SARS%20CoV- 2/Fact%20Sheets/3023802 %12MNIJ-ILV-3%20HEALTHCA RE%20PROVIDERS%20FACT%20 SHEET.pdf Fact Sheet for Healthcare Patients:https://www.Woozworld/Documents/Xpert %20Xpress%20SARS%20CoV-2 /Fact%20Sheets/3023801% 98MZIS-YQF-6%20PATIENT%2 0FACT%20SHEET.pdf Performing Laboratory:[facility] [place] [address] [facility])2020-07-03 08:16:00 Test Item Value Reference Range Interpretation Comments SARS-COV2/RT-PCR (test code Negative Not Detected, Negative, = 9521100) See external report for linked test SARS-COV-2 PERFORMING LAB [facility] (test code = 1582471) Negative results do not preclude SARS-CoV-2 infection [...] of the Act.Fact Sheet for Healthcare Pro viders:https://www.Finario/Documents/Xpert%20Xpress%20SARS%20CoV-2/Fact%20Sh eets/302-3802%39KCCD-ITV-9%20HEALTHCARE%20PROVIDERS%20FACT%20SHEET.pdfFact Sheet for Healthcare Patients:https://www.FOXTOWN.CCBR-SYNARC/Documents/Xpert%20Xpress%20SARS%20CoV-2/Fact%20Sheets/302-3801%20SARS-COV -2%20PATIENT%20FACT%20SHEET.pdfPerforming Laboratory:[facility] [place], [place] [address]QPHQ-HISKMVP [id number] 08:12:00 Test Item Value Reference Range Interpretation Comments POC-GLUCOSE METER 152 mg/dL 70-110 H : TESTED A T [facility] 6720 (BEAKER) (test code = [facility] [place] [facility], 1538) [address]: Supervisor Quality Control/Techni heather ID = [id number] for LEVON LEE BASIC METABOLIC [id number] 05:19:00 Test Item Value Reference Range Interpretation [...] S NOT APPLICABLE FOR DIALYSIS PATIEN TS. Supervisor Quality Control ID - TUSHAR [id number] 04:52:00 Test Item Value Reference Range Interpretation Comments PARTIAL THROMBOPLASTIN TIME 37.1 seconds 22.5-36.0 H (BEAKER) (test code = 760) CBC (Hemogram only)2020-07-03 04:41:00 Test Item Value Reference Range Interpretation Comments WBC (test code = 6690-2) 14.4 See_Comment H [A utomated message] The system [employer] generated this result transmitted ref erence range: 3.5 - 10 .5 K/L. The refe rence range was not u sed to interpret this result as normal/abnor mal. RBC (test code = 789-8) 2.85 See_Comment L [Au tomated message] The system [employer] generated this result transmitted ref erence range: 4.63 - 6 .08 M/L. The refe rence range was not u sed to interpret this result as normal/abnor mal. MCHC (test code = 786-4) 31.6 See_Comment L [A utomated message] The system [employer] generated this result transmitted ref erence range: [...] See_Comment [Aut omated message] 777-3) The system [employer] generated this result transmitted ref erence range: 150 - 45 0 K/CU MM. The referen ce range was not u sed to interpret this result as normal/abnor mal. MPV (test code = 9.0 fL 9.4-12.4 L 05007-2) nRBC (test code = 413) 0 See_Comment [Aut omated message] The system [employer] generated this result transmitted ref erence range: 0 - 0 /1 00 WBC. The refere nce range was not u sed to interpret this result as normal/abnor mal. Lab Interpretation (test Abnormal code = 81623-6) [facility] (HEMOGRAM ONLY)2020-07-03 04:41:00 Test Item Value Reference [...] 0-0 (BEAKER) (test code = 413) SARS-COV2/RT-PCR ([facility])2020-07-02 20:04:00 Test Item Value Reference Range Interpretation Comments SARS-COV2/RT-PCR (test Negative Not Detected, Negative, code = 6369336) See external report for linked test SARS-COV-2 PERFORMING LAB [facility] (test code = 8044649) Negative result for this test determines that [...] [place] SARS-CoV-2 assay.Fact Sheet for Healthcare Providers:https://www.molecular.pacheco/libby/RT_SAR Y-AfG-4_EDM_Cyqr_Dswzf_75-022204.pdfFact Sheet for Healthcare Patients:https://www.molecular.pacheco/s al/ZA_ZYCN-JqN-9_Ksahhkt_Lujr_Eyrbb_LY_43-757082B2.pdfPerforming Laboratory:[facility] [address] POCT-GLUCOSE [id number] 17:56:00 Test Item Value Reference Range Interpretation Comments POC-GLUCOSE METER 155 mg/dL 70-110 H : TESTED A T [facility] 6720 ([employer]) (test code = [place] [facility], 1538) [address]: Supervisor Quality Control/Techni heather ID = [id number] for Jazmin Hu POCT-GLUCOSE [id number] 17:55:00 Test Item Value Reference Range Interpretation Comments POC-GLUCOSE METER 166 mg/dL 70-110 H : TESTED A T [facility] 6720 ([employer]) (test code = [facility] [facility], 1538) [address]: Supervisor Quality Control/Techni heather ID = [id number] for Jazmin Hu CBC (HEMOGRAM ONLY)2020-07-02 17:45:00 [...] (BEAKER) (test code = 413) Vancomycin level, [id number] 16:47:00 Test Item Value Reference Range Interpretation Comments Vancomycin Rm (test 9.9 ug/mL code = 90422-4) CACHORRO (test code = Reference Range: No CACHORRO) NormalsOperator ID - BS [facility] CenterVancomycin level, [id number] 16:47:00 Test Item Value Reference Range Interpretation Comments Vancomycin Rm (test 9.9 ug/mL code = 19929-7) CACHORRO (test code = Reference Range: No CACHORRO) NormalsOperator ID - BS [facility] CenterVANCOMYCIN LEVEL, [id number] 16:47:00 Test Item Value Reference Range Interpretation Comments VANCOMYCIN RANDOM (BEAKER) (test 9.9 ug/mL code = 523) Reference Range: No NormalsOperator ID - BSPOCT-GLUCOSE [id number] 14:40:00 Test Item Value Reference Range Interpretation Comments POC-GLUCOSE METER 167 mg/dL 70-110 H : TESTED A T [facility] 6720 (BEAKER) (test code = [place], 1538) [address]: Supervisor Quality Control/Techni heather ID = [id number] for ANGIE WHEELER RK ECG 12 [id number] 13:53:08Interface, External Ris In - 07/02/2020 1:53 PM CDTVentricular Rate 70 BPMAtrial Rate 76 BPMQRS Duration 114 msQ-T Interval 416 msQTC Calculation(Bazett) 449 msR [place] 2 degreesT [place] -17 [address] and T wave abnormalityAbnormal ECGWhen compared with ECG of 30-JAN-2017 01:13,ST less depressed in Anterior leadsT wave inversion no longer evident in Anterolateral leadsConfirmed by MD Morocho Roberto ([id number]) on 07/02/2020 1:53:05 [facility] W/PLT COUNT & AUTO [id number] 09:24:00 Test Item Value Reference Range Interpretation [...] CONCENTRATION Adequate (CELLAVISION)(BEAKER) (test code = 3438) Supervisor Quality Control ID - Niurka Morelandmandi comments: Slide comments:POCT-GLUCOSE METER 2020-07-02 08:29:00 Test Item Value Reference Range Interpretation Comments POC-GLUCOSE METER 162 mg/dL 70-110 H : TESTED A T [facility] (BEAKER) (test code = [place], 1538) [address]: Supervisor Quality Control/Techni heather ID = [id number] for Jazmin Hu [id number] 05:08:00 Test Item Value Reference Range Interpretation Comments PARTIAL THROMBOPLASTIN TIME 65.4 seconds 22.5-36.0 H (BEAKER) (test code = 760) [id number] 03:17:00 Test Item Value Reference Range Interpretation Comments PARTIAL THROMBOPLASTIN TIME 128.2 seconds 22.5-36.0 H (BEAKER) (test code = 760) BASIC METABOLIC [id number] 03:15:00 Test Item Value Reference Range Interpretation [...] S NOT APPLICABLE FOR DIALYSIS PATIEN TS. Supervisor Quality Control ID - SARBJIT MPOCT-GLUCOSE [id number] 00:03:00 Test Item Value Reference Range Interpretation Comments POC-GLUCOSE METER 183 mg/dL 70-110 H : TESTED A T [facility] 6720 (BEAKER) (test code = [facility], 1538) [address]: Supervisor Quality Control/Techni heather ID = [id number] for Herb Giles [id number] 18:14:00 Test Item Value Reference Range Interpretation Comments PARTIAL THROMBOPLASTIN TIME 71.0 seconds 22.5-36.0 H (BEAKER) (test code = 760) POCT-GLUCOSE [id number] 17:03:00 Test Item Value Reference Range Interpretation Comments POC-GLUCOSE METER 259 mg/dL 70-110 H : TESTED A T [facility] 6720 (BEAKER) (test code = [facility], 1538) [address]: Supervisor Quality Control/Techni heather ID = [id number] for MALIHA HANNAH [id number] 15:30:00 Test Item Value Reference Range Interpretation Comments PARTIAL THROMBOPLASTIN TIME > seconds 22.5-36.0 HH (BEAKER) (test code = 760) Blood Culture - Routine (Left Venipuncture)2020-07-01 14:01:00 Test Item Value Reference Range Interpretation Comments Result (test code = No growth in 5 days 6463-4) [facility] CenterBlood [facility] - [facility]ine (Left Venipuncture)2020-07-01 14:01:00 Test Item Value Reference Range Interpretation Comments Result (test code = No growth in 5 days 6463-4) [facility] CenterBLOOD [id number] 14:01:00 Test Item Value Reference Range Interpretation Comments CULTURE (BEAKER) (test No growth in 5 days code = 1095) BLOOD [id number] 14:01:00 Test Item Value Reference Range Interpretation Comments CULTURE (BEAKER) (test No growth in 5 days code = 1095) BLOOD [id number] 14:01:00 Test Item Value Reference Range Interpretation Comments CULTURE (BEAKER) (test No growth in 5 days code = 1095) POCT-GLUCOSE [id number] 12:17:00 Test Item Value Reference Range Interpretation Comments POC-GLUCOSE METER 225 mg/dL 70-110 H : TESTED A T [facility] 6720 (BEAKER) (test code = [place], 1538) [address]: Supervisor Quality Control/Techni heather ID = [id number] for AN MALIHA CARBALLO Hepatic function [id number] 10:07:00 Test Item Value Reference Range Interpretation Comments Protein, Total (test 7.0 See_Comment [Autom ated code = 2885-2) message] The system which generated this result transmit vy reference range : 6.0 - 8.3 gm/dL . The reference range was not u sed to interpret th is result as normal/abnormal . Albumin (test code = 3.2 g/dL 3.5-5 L 21089-5) Total Bilirubin (test 0.5 mg/dL 0.2-1.2 code = 1975-2) Bilirubin, Direct 0.3 mg/dL 0.1-0.5 (test code = 1968-7) Alkaline Phosphatase 110 U/L 40-150 (test code = 6768-6) AST (test code = 15 U/L 5-34 1920-8) ALT (test code = 10 U/L 6-55 1742-6) CACHORRO (test code = CACHORRO) Supervisor Quality Control ID - NIURKA F Lab Interpretation Abnormal (test code = 20841-8) [facility] CenterHEPATIC FUNCTION [id number] 10:07:00 Test Item Value Reference Range Interpretation [...] (test code = 10 U/L 6-55 347) Supervisor Quality Control ID Ventura JARAMILLO FCBC W/PLT COUNT & AUTO [id number] 09:53:00 Test Item Value Reference Range Interpretation [...] Adequate (CELLAVISION)(BEAKER) (test code = 3438) POCT-GLUCOSE [id number] 07:36:00 Test Item Value Reference Range Interpretation Comments POC-GLUCOSE METER 167 mg/dL 70-110 H : Notified RN/MD: (BEAKER) (test code = TESTED AT [facility] 6977 6528) [facility], [address]: Supervisor Quality Control/Techni heather ID = [id number] for AN MALIAH CARBALLO BASIC METABOLIC [id number] 06:45:00 Test Item Value Reference Range Interpretation [...] S NOT APPLICABLE FOR DIALYSIS PATIEN TS. Supervisor Quality Control ID - NIURKA FVANCOMYCIN LEVEL, [id number] 06:33:00 Test Item Value Reference Range Interpretation Comments VANCOMYCIN RANDOM (BEAKER) (test 18.8 ug/mL code = 523) Reference Range: No NormalsOperator ID - SARBJIT [id number] 06:18:00 Test Item Value Reference Range Interpretation Comments PARTIAL THROMBOPLASTIN TIME 39.9 seconds 22.5-36.0 H (BEAKER) (test code = 760) POCT-GLUCOSE [id number] 00:26:00 Test Item Value Reference Range Interpretation Comments POC-GLUCOSE METER 170 mg/dL 70-110 H : TESTED A T [facility] 6720 (BEAKER) (test code = [facility], 1538) [address]: Supervisor Quality Control/Techni heather ID = [id number] for DYLAN OLSON [id number] 23:56:00 Test Item Value Reference Range Interpretation Comments PARTIAL THROMBOPLASTIN TIME 47.5 seconds 22.5-36.0 H (BEAKER) (test code = 760) [id number] 16:30:00 Test Item Value Reference Range Interpretation Comments PARTIAL THROMBOPLASTIN TIME 51.2 seconds 22.5-36.0 H (BEAKER) (test code = 760) [id number] 14:32:00 Test Item Value Reference Range Interpretation Comments PARTIAL THROMBOPLASTIN TIME 187.8 seconds 22.5-36.0 HH (BEAKER) (test code = 760) [id number] 13:55:00 Test Item Value Reference Range Interpretation Comments PARTIAL THROMBOPLASTIN TIME > seconds 22.5-36.0 HH (BEAKER) (test code = 760) POCT-GLUCOSE [id number] 12:13:00 Test Item Value Reference Range Interpretation Comments POC-GLUCOSE METER 207 mg/dL 70-110 H : TESTED A T [facility] 6720 (BEAKER) (test code = [facility], 1538) [address]: Supervisor Quality Control/Techni heather ID = [id number] for LADARIUS HOWELL CBC W/PLT COUNT & AUTO [id number] 09:36:00 Test Item Value Reference Range Interpretation [...] CONCENTRATION Decreased (CELLAVISION)(BEAKER) (test code = 3438) Supervisor Quality Control ID - Magi Esposito comments: Slide comments:POCT-GLUCOSE METER 2020-06-30 08:19:00 Test Item Value Reference Range Interpretation Comments POC-GLUCOSE METER 162 mg/dL 70-110 H : TESTED A T [facility] 6720 (BEAKER) (test code = [place], 1538) [address]: Supervisor Quality Control/Techni heather ID = [id number] for CA STRO, EMANI [id number] 07:46:00 Test Item Value Reference Range Interpretation Comments PARTIAL THROMBOPLASTIN TIME 76.8 seconds 22.5-36.0 H (BEAKER) (test code = 760) BASIC METABOLIC [id number] 07:03:00 Test Item Value Reference Range Interpretation [...] S NOT APPLICABLE FOR DIALYSIS PATIEN TS. Supervisor Quality Control ID - SARBJIT MVANCOMYCIN LEVEL, [id number] 06:09:00 Test Item Value Reference Range Interpretation Comments VANCOMYCIN RANDOM (BEAKER) (test 25.1 ug/mL code = 523) Reference Range: No NormalsOperator ID - ASRBJIT [id number] 00:42:00 Test Item Value Reference Range Interpretation Comments PARTIAL THROMBOPLASTIN TIME 68.8 seconds 22.5-36.0 H (BEAKER) (test code = 760) [id number] 22:14:00 Test Item Value Reference Range Interpretation Comments PARTIAL THROMBOPLASTIN TIME 124.8 seconds 22.5-36.0 H (BEAKER) (test code = 760) POCT-GLUCOSE [id number] 21:06:00 Test Item Value Reference Range Interpretation Comments POC-GLUCOSE METER 183 mg/dL 70-110 H : TESTED A T [facility] 6720 (BEAKER) (test code = [facility], 1538) [address]: Supervisor Quality Control/Techni heather ID = [id number] for Penelope mSith POCT-GLUCOSE [id number] 17:21:00 Test Item Value Reference Range Interpretation Comments POC-GLUCOSE METER 190 mg/dL 70-110 H : TESTED A T [facility] (BEAKER) (test code = [facility], 1538) [address]: Supervisor Quality Control/Techni heather ID = [id number] for EMANI DELGADO [id number] 14:11:00 Test Item Value Reference Range Interpretation [...] 0-0 (BEAKER) (test code = 413) POCT-GLUCOSE [id number] 12:21:00 Test Item Value Reference Range Interpretation Comments POC-GLUCOSE METER 185 mg/dL 70-110 H : TESTED A T [facility] 6720 (BEAKER) (test code = [place], 1538) [address]: Supervisor Quality Control/Techni heather ID = [id number] for EMANI DELGADO CBC W/PLT COUNT & AUTO [id number] 10:14:00 Test Item Value Reference Range Interpretation [...] CONCENTRATION Adequate (CELLAVISION)(BEAKER) (test code = 3438) Supervisor Quality Control ID - Raven Ledesma comments: Slide comments:POCT-GLUCOSE METER 2020-06-29 08:10:00 Test Item Value Reference Range Interpretation Comments POC-GLUCOSE METER 148 mg/dL 70-110 H : TESTED A T [facility] 6720 (BEAKER) (test code = [place], 1538) [address]: Supervisor Quality Control/Techni heather ID = [id number] for CA ERICKSONTRIEMANI [id number] 07:22:00 Test Item Value Reference Range Interpretation Comments Magnesium (test code = 1.6 mg/dL 1.6-2.6 41613-2) CACHORRO (test code = CACHORRO) Supervisor Quality Control ID - SARBJIT Molina Lab Interpretation (test Normal code = 65253-4) [facility] [id number] 07:22:00 Test Item Value Reference Range Interpretation Comments Magnesium (test code = 1.6 mg/dL 1.6-2.6 22983-3) CACHORRO (test code = CACHORRO) Supervisor Quality Control SYLVIA Molina Lab Interpretation (test Normal code = 44135-5) [facility] CenterBASIC METABOLIC [id number] 07:22:00 Test Item Value Reference Range Interpretation [...] S NOT APPLICABLE FOR DIALYSIS PATIEN TS. Supervisor Quality Control ID - SARBJIT [id number] 07:22:00 Test Item Value Reference Range Interpretation Comments MAGNESIUM (BEAKER) (test code = 1.6 mg/dL 1.6-2.6 627) Supervisor Quality Control ID - SARBJIT [id number] 07:08:00 Test Item Value Reference Range Interpretation Comments PARTIAL THROMBOPLASTIN TIME 71.2 seconds 22.5-36.0 H (BEAKER) (test code = 760) [id number] 00:38:00 Test Item Value Reference Range Interpretation Comments PARTIAL THROMBOPLASTIN TIME 36.4 seconds 22.5-36.0 H (BEAKER) (test code = 760) [id number] 22:00:00 Test Item Value Reference Range Interpretation Comments PARTIAL THROMBOPLASTIN TIME 122.0 seconds 22.5-36.0 H (ERIK) (test code = 760) POCT-GLUCOSE [id number] 21:36:00 Test Item Value Reference Range Interpretation Comments POC-GLUCOSE METER 153 mg/dL 70-110 H : TESTED A T [facility] 6720 (ERIK) (test code = [facility] [place] [facility], 1538) [address]: Supervisor Quality Control/Techni heather ID = [id number] for PIPPA GUERIN Vancomycin level, [id number] 21:03:00 Test Item Value Reference Range Interpretation Comments Vancomycin Tr (test code = 26.1 ug/mL 10-20 H 4092-3) CACHORRO (test code = CACHORRO) Supervisor Quality Control ID - DB Lab Interpretation (test Abnormal code = 71451-7) [facility] CenterVancomycin level, [id number] 21:03:00 Test Item Value Reference Range Interpretation Comments Vancomycin Tr (test code = 26.1 ug/mL 10.0-20.0 H 4092-3) CACHORRO (test code = CACHORRO) Supervisor Quality Control ID - DB Lab Interpretation (test Abnormal code = 28881-7) [facility] CenterVANCOMYCIN LEVEL, [id number] 21:03:00 Test Item Value Reference Range Interpretation Comments VANCOMYCIN TROUGH (ZHANGAKER) (test 26.1 ug/mL 10.0-20.0 H code = 522) Supervisor Quality Control ID - DBPOCT-GLUCOSE [id number] 17:48:00 Test Item Value Reference Range Interpretation Comments POC-GLUCOSE METER 129 mg/dL 70-110 H : Notified RN/MD: (ERIK) (test code = TESTED AT [place] 8002720 1538) [facility], [address]: Supervisor Quality Control/Techni heather ID = [id number] for MALIHA HANNAH [id number] 14:09:00 Test Item Value Reference Range Interpretation Comments PARTIAL THROMBOPLASTIN TIME 41.5 seconds 22.5-36.0 H (ERIK) (test code = 760) POCT-GLUCOSE [id number] 11:54:00 Test Item Value Reference Range Interpretation Comments POC-GLUCOSE METER 130 mg/dL 70-110 H : Notified RN/MD: (ERIK) (test code = TESTED AT [place] [address] 1538) [facility], [address]: Supervisor Quality Control/Techni heather ID = [id number] for AN MALIHA CARBALLO POCT-GLUCOSE [id number] 07:53:00 Test Item Value Reference Range Interpretation Comments POC-GLUCOSE METER 152 mg/dL 70-110 H : Notified RN/MD: (BEAKER) (test code = TESTED AT [place] [address] 1538) [facility], [address]: Supervisor Quality Control/Techni heather ID = [id number] for AN MALIHA CARBALLO CBC W/PLT COUNT & AUTO [id number] 07:41:00 Test Item Value Reference Range Interpretation [...] CONCENTRATION Adequate (CELLAVISION)(BEAKER) (test code = 3438) Supervisor Quality Control ID - Magi Esposito comments: Slide comments:BASIC [...] mg/dL 8.4-10.2 (test code = 697) EGFR ([facility]) (test 42 mL/min/1.73 ESTIMA VY GFR IS code = 1092) sq m NOT ACCURATE CREATININE CLEARANCE IN PREDICTING GLOMERULAR FILTRATION RATE . ESTIMATED GFR I S NOT APPLICABLE FOR DIALYSIS PATIEN TS. Supervisor Quality Control ID - [id number] 05:08:00 Test Item Value Reference Range Interpretation Comments PARTIAL THROMBOPLASTIN TIME 38.2 seconds 22.5-36.0 H ([facility]) (test code = 760) POCT-GLUCOSE [id number] 23:23:00 Test Item Value Reference Range Interpretation Comments POC-GLUCOSE METER 191 mg/dL 70-110 H : TESTED A T [facility] 6720 ([facility]) (test code = [facility], 153) [address]: Supervisor Quality Control/Techni heather ID = [id number] for JONATAN BENITEZ RA [id number] 21:47:00 Test Item Value Reference Range Interpretation Comments PARTIAL THROMBOPLASTIN TIME 44.5 seconds 22.5-36.0 H ([facility]) (test code = 760) [id number] 18:57:00 Test Item Value Reference Range Interpretation Comments PARTIAL THROMBOPLASTIN TIME 129.6 seconds 22.5-36.0 H ([facility]) (test code = 760) POCT-GLUCOSE [id number] 18:19:00 Test Item Value Reference Range Interpretation Comments POC-GLUCOSE METER 173 mg/dL 70-110 H : Notified RN/MD: ([facility]) (test code = TESTED AT [place] [address] 153) [facility], [address]: Supervisor Quality Control/Techni heather ID = [id number] for MALIHA HANNAH Arterial doppler legs [id number] 13:46:31[facility] MKCKESSON [...] ! + + + + + + +------- + + + !Mid Common Femoral ! !99.8 ! ! ! !64.8 ! ! ! + + + + + + + + + + !Prox PFA ! !62.9 ! ! ! !43.4 ! ! ! + + +-- + + + + + + + !Prox SFA ! !128 ! ! ! !99.1 ! ! ! + + + + + + +--------- + + + !Mid SFA ! !138 [...] + + + + + + !Prox NEEDLE BAR MOLDER ! !42.2 ! ! ! !11.8 ! ! ! + + + + + + + + + + !Mid NEEDLE BAR MOLDER ! !77.8 ! ! ! + + + + + + !Dist NEEDLE BAR MOLDER ! !44.8 ! ! ! + + [...] Lower Extremity Arterial Duplex Demographics Patient Name YAIMA COLEY Date of Study 06/26/2020 Age 75 Visit Number [id number] Gender Male Accession Number [id number] Date of 1945 Referring Suri Spencer Room Number 0175 Physician MD [facility]ela General Ophthalmologist Rajinder Moreno Interpreting Physician STEFANIE Foster ProcedureType of Study: Extremities Arteries: Lower Extremities Arterial Duplex, ARTERIAL DOPPLER LEGS, BILATERAL. Indications for Study:Leg pain and Leg swelling.Patient Status:STAT.Study Location:Portable.Technical Quality:Technical ly Difficult.Risk FactorsHistory of Disease+ +----+ +!Diagnosis !Date!Comments !+ +----+ +!History/Risk ! !Obesity, DM, Pacemaker, CHF, Afib, HTN, Foot !!Factors: ! !Infection, Long time anticoagulation !+ +----+ -------+ImpressionsRight Impression1. The common femoral, profunda femoral, proximal/mid superficialfemoralarteries are patent with triphasic Doppler waveforms.2. No [...] the common femoral, profunda femoral, proximal/mid superficial femoralarteries were patent with triphasic Doppler waveforms. No [...] was patent with biphasic Doppler waveforms. Bilaterally, calcifiedarteries and collateral flow were visualized throughout. Signature Velocities are measured in cm/s ; Diameters are measured in cmLE Duplex Measurements Right Left + + + + + + + + + + !Location ! !PSV !EDV !Waveform ! !PSV !EDV !Waveform ! + + +--- + + + + + + + !Mid Common Femoral ! !99.8 ! ! ! !64.8 ! ! ! + + + + + + + + + + !Prox PFA ! !62.9 ! ! ! !43.4 ! ! ! + + + + + + + + + + !ProxSFA ! !128 ! ! ! !99.1 ! ! ! + + +----- + + + + + + + !Mid SFA ! !138 ! ! ! !103 ! ! ! + + + + + + + -----+ + + !Dist SFA ! !62.1 ! [...] + + + + + + !Prox NEEDLE BAR MOLDER ! !42.2 ! ! ! !11.8 ! ! ! + + + + + + + + + + !Mid NEEDLE BAR MOLDER ! !77.8 ! ! ! + + + + + + !Dist NEEDLE BAR MOLDER ! !44.8 ! ! ! + + + + + + !Prox KYLEGIH ! !41 !! ! + + + + + + !Mid KYLEIGH ! !16 ! ! ! + + + + + + !Dist Peroneal ! !20.2 ! ! ! + + + + + +[facility] [id number] 12:23:00 Test Item Value Reference Range Interpretation Comments POC-GLUCOSE METER 158 mg/dL 70-110 H : TESTED Javi Arizmendi [facility] 6720 (BEAKER) (test code = [place], 1538) [address]: Supervisor Quality Control/Techni heather ID = [id number] for AN MALIHA CARBALLO [id number] 12:15:00 Test Item Value Reference Range Interpretation Comments PARTIAL THROMBOPLASTIN TIME 49.5 seconds 22.5-36.0 H (BEAKER) (test code = 760) CBC W/PLT COUNT & AUTO [id number] 09:10:00 Test Item Value Reference Range Interpretation [...] CONCENTRATION Adequate (CELLAVISION)(BEAKER) (test code = 3438) Supervisor Quality Control ID - Raven Ledesma comments: Slide comments:POCT-GLUCOSE METER 2020-06-27 08:03:00 Test Item Value Reference Range Interpretation Comments POC-GLUCOSE METER 150 mg/dL 70-110 H : TESTED A T [facility] 6720 (BEAKER) (test code = [facility], 1538) [address]: Supervisor Quality Control/Techni heather ID = [id number] for AN MALIHA CARBALLO BASIC METABOLIC [id number] 06:39:00 Test Item Value Reference Range Interpretation [...] S NOT APPLICABLE FOR DIALYSIS PATIEN TS. Supervisor Quality Control ID - PIAYA [id number] 06:02:00 Test Item Value Reference Range Interpretation Comments PARTIAL THROMBOPLASTIN TIME 77.3 seconds 22.5-36.0 H (BEAKER) (test code = 760) [id number] 23:03:00 Test Item Value Reference Range Interpretation Comments PARTIAL THROMBOPLASTIN TIME 54.9 seconds 22.5-36.0 H (BEAKER) (test code = 760) POCT-GLUCOSE [id number] 17:54:00 Test Item Value Reference Range Interpretation Comments POC-GLUCOSE METER 139 mg/dL 70-110 H : TESTED A T [facility] 6720 (BEAKER) (test code = [facility], 153) [address]: Supervisor Quality Control/Techni heather ID = [id number] for AN MALIHA CARBALLO [id number] 15:39:00 Test Item Value Reference Range Interpretation [...] 0-0 (BEAKER) (test code = 413) POCT-GLUCOSE [id number] 12:48:00 Test Item Value Reference Range Interpretation Comments POC-GLUCOSE METER 100 mg/dL 70-110 : TESTED A T [facility] 6720 (BEAKER) (test code = [place], 1538) [address]: Supervisor Quality Control/Techni heather ID = [id number] for AN MALIHA CARBALLO Venous doppler leg, [id number] 08:15:01Ejection [facility] ECHO HEARTLAB MKCKESSON CPACSRight Impression1. There is [...] of Study 06/25/2020 Age 75 Visit Number [id number] Gender Male Accession Number [id number] Date of 1945 Referring Suri Spencer Room Number ED21 Physician MD Fela General Ophthalmologist Rajinder Moreno Interpreting Madelyn Redmond, Physician ProcedureType of Study: Veins: Lower Extremities DVT Study, VENOUS DOPPLER LEG, RIGHT. Indications for Study:Leg pain and Leg swelling.Patient Status:STAT.Study Loc ation:Portable.Technical Quality:Technically Difficult. - Results were reported to: Dr. Chahal @ 23:15 (chronic).Risk FactorsHistory of Disease+ +----+ +!Diagnosis !Date!Comments !+ +----+ +!History/Risk ! !Obesity, DM, Pacemaker, CHF, Afib, HTN, Foot !!Factors: ! !Infection, Long time anticoagulation !+ +----+ ------+ImpressionsRight Impression1. There is partial echogenic deep venous [...] in cm/s ; Diameters are measured in [facility] CenterVenous doppler leg, [id number] 08:[facility] MKCKESSON CPACHI [facility] CenterHemoglobin [id number] 08:11:00 Test Item Value Reference Range Interpretation Comments Hemoglobin A1C (test code = 4548-4) 7.2 % 4.3-6.1 H Lab Interpretation (test code = Abnormal 47494-4) [facility] CenterHem[facility] [id number] 08:11:00 Test Item Value Reference Range Interpretation Comments Hemoglobin A1C (test code = 4548-4) 7.2 % 4.3-6.1 H Lab Interpretation (test code = Abnormal 36197-5) [facility] CenterHEMOGLOBIN [id number] 08:11:00 Test Item Value Reference Range Interpretation Comments HEMOGLOBIN A1C (BEAKER) (test code = 7.2 % 4.3-6.1 H 368) CBC W/PLT COUNT & AUTO [id number] 07:57:00 Test Item Value Reference Range Interpretation [...] CONCENTRATION Adequate (CELLAVISION)(BEAKER) (test code = 3438) Supervisor Quality Control ID - Raven Ledesma comments: Slide comments:SARS-COV2/RT-PCR ([facility])2020-06-26 05:27:00 Test Item Value Reference Range Interpretation Comments SARS-COV2/RT-PCR (test Negative Not Detected, Negative, code = 9081354) See external report for linked test SARS-COV-2 PERFORMING LAB [facility] (test code = 8129423) Negative result for this test determines that [...] the Pacheco SARS-CoV-2 assay.Fact Sheet for Healthcare Providers:https://www.Magzter.pacheco/libby/RT_SAR T-TgD-9_FLY_Omvq_Thtus_24-153447.pdfFact Sheet for Healthcare Patients:https://www.molecular.pacheco/s al/[place]_CWEE-HeW-7_Tszhzav_Aqpw_Mpnlv_VS_82-997433D8.pdfPerforming Laboratory:[facility] [place] [address] Vitamin B12 and [id number] 05:14:00 Test Item Value Reference Range Interpretation Comments Vitamin B12 (test 832 pg/mL 213-816 H code = 2132-9) Folate (test code = 17.50 ng/mL See_Comment [Automa vy 2284-8) message] The system which generated this result transmit vy reference range : >=7.00. The reference range was not used to interpret this result as normal/abnormal . CACHORRO (test code = CACHORRO) Supervisor Quality Control ID - SARBJIT M Lab Interpretation Abnormal (test code = 00167-2) [facility] [id number] 05:14:00 Test Item Value Reference Range Interpretation Comments VITAMIN B12 832 pg/mL 213-816 H (BEAKER) (test code = 774) FOLATE (BEAKER) 17.50 ng/mL See_Comment [Automated message] (test code = 362) The system which generated this result transmitted ref erence range: >=7.00. The reference range was not used to interpr et this result as normal/abnormal . Supervisor Quality Control ID - SARBJIT MC-Reactive [id number] 04:29:00 Test Item Value Reference Range Interpretation Comments CRP (test code = 676) 5.28 mg/dL 0-0.5 H CACHORRO (test code = CACHORRO) Supervisor Quality Control ID - SARBJIT M Lab Interpretation (test Abnormal code = 35804-1) [facility]-REACT[facility] [id number] 04:29:00 Test Item Value Reference Range Interpretation Comments C-REACTIVE PROTEIN (BEAKER) (test 5.28 mg/dL 0.00-0.50 H code = 676) Supervisor Quality Control ID - SARBJIT MBASIC METABOLIC [id number] 04:29:00 Test Item Value Reference Range Interpretation [...] S NOT APPLICABLE FOR DIALYSIS PATIEN TS. Supervisor Quality Control ID - SARBJIT CLARKD, FOOT, MIN 3 VIEWS, [id number] 23:41:00Reason for exam:->LEG PAINReason for exam:->LEG SWELLING [facility] KRYSTA : 1945 Sex: [...] CONCENTRATION Adequate (CELLAVISION)(BEAKER) (test code = 3438) Supervisor Quality Control ID - Anastasia comments: Slide comments:Lactic acid, venous 2020-06-25 19:36:00 Test Item Value Reference Range Interpretation Comments Lactate, Venous (test code = 0.52 mmol/L 0.5-2.2 2872) CACHORRO (test code = CACHORRO) Supervisor Quality Control ID - BS Lab Interpretation (test Normal code = 29227-8) [facility] CenterL[facility], [id number] 19:36:00 Test Item Value Reference Range Interpretation Comments Lactate, Venous (test code = 0.52 mmol/L 0.50-2.20 2872) CACHORRO (test code = CACHORRO) Supervisor Quality Control ID - BS Lab Interpretation (test Normal code = 06386-4) [facility] CenterBASIC [facility]OLIC [id number] 19:36:00 Test Item Value Reference Range Interpretation [...] S NOT APPLICABLE FOR DIALYSIS PATIEN TS. Supervisor Quality Control ID - BSC-REACTIVE [id number] 19:36:00 Test Item Value Reference Range Interpretation Comments C-REACTIVE PROTEIN (BEAKER) (test 4.79 mg/dL 0.00-0.50 H code = 676) Supervisor Quality Control ID - BSLACTIC ACID, [id number] 19:36:00 Test Item Value Reference Range Interpretation Comments LACTATE BLOOD VENOUS (2) (BEAKER) 0.52 mmol/L 0.50-2.20 (test code = 2872) Supervisor Quality Control ID - BSPT/[id number] 19:32:00 Test Item Value Reference Interpretation Comments Range Protime (test code = 16.8 See_Comment H [Autom ated 5902-2) message] The system which generated this result transmitted reference range : 11.9 - 14.2 seconds. The reference range was not used to interpret this result as normal/abnormal . INR (test code = 1.40 See_Comment [Automated 9401-6) message] The system which generated this result transmitted reference range : <=5.90. The reference range was not used to interpret this result as normal/abnormal . PTT (test code = 39.7 See_Comment H [Automated 89321-8) message] The system which generated this result [...] valves. Lab Interpretation Abnormal (test code = 98221-4) [facility] CenterPT/[id number] 19:32:00 Test Item Value Reference Interpretation Comments [...] (test code = 39.7 See_Comment H [Automated 37215-2) message] The system which generated this result [...] valves. Lab Interpretation Abnormal (test code = 95211-2) [facility] CenterPT/[id number] 19:32:00 Test Item Value Reference Range Interpretation [...] mechanical heart valves.CBC W/PLT COUNT & AUTO [id number] 19:25:00 Test Item Value Reference Range Interpretation [...] 0-0 (BEAKER) (test code = 413) POCT-GLUCOSE [id number] 13:28:00 Test Item Value Reference Range Interpretation Comments POC-GLUCOSE METER 270 mg/dL 70-110 H TESTED AT [place] [address] ([facility]) (test code = [place] [facility] 1538) [address] POCT-GLUCOSE [id number] 08:58:00 Test Item Value Reference Range Interpretation Comments POC-GLUCOSE METER 147 mg/dL 70-110 H TESTED AT [place] [address] ([facility]) (test code = [facility] 1538) [address] CBC W/PLT COUNT & AUTO [id number] 08:53:00 Test Item Value Reference Range Interpretation [...] 0-1 PERCENT (BEAKER) (test code = 2804) [id number] 08:05:00 Test Item Value Reference Range Interpretation Comments MAGNESIUM (BEAKER) (test code = 1.5 mg/dL 1.6-2.6 L 627) BASIC METABOLIC [id number] 08:05:00 Test Item Value Reference Range Interpretation [...] NOT APPLICABLE FOR DIALYSIS PATIEN TS. POCT-GLUCOSE [id number] 21:57:00 Test Item Value Reference Range Interpretation Comments POC-GLUCOSE METER 219 mg/dL 70-110 H TESTED AT [place] [address] ([facility]) (test code = [facility] 1538) [address] POCT-GLUCOSE [id number] 17:24:00 Test Item Value Reference Range Interpretation Comments POC-GLUCOSE METER 247 mg/dL 70-110 H TESTED AT [place] [address] ([facility]) (test code = [facility] 1538) [address] CBC W/PLT COUNT & AUTO [id number] 13:56:00 Test Item Value Reference Range Interpretation [...] (BEAKER) (test code Normal = 762) POCT-GLUCOSE [id number] 13:22:00 Test Item Value Reference Range Interpretation Comments POC-GLUCOSE METER 226 mg/dL 70-110 H TESTED AT [facility] 6720 (BEAKER) (test code = [place] 1538) [address] POCT-GLUCOSE [id number] 07:59:00 Test Item Value Reference Range Interpretation Comments POC-GLUCOSE METER 216 mg/dL 70-110 H TESTED AT [facility] 6720 (BEAKER) (test code = [place] [facility] 1538) [address] [id number] 05:18:00 Test Item Value Reference Range Interpretation Comments MAGNESIUM (BEAKER) (test code = 1.7 mg/dL 1.6-2.6 627) BASIC METABOLIC [id number] 05:18:00 Test Item Value Reference Range Interpretation [...] NOT APPLICABLE FOR DIALYSIS PATIEN TS. POCT-GLUCOSE [id number] 20:58:00 Test Item Value Reference Range Interpretation Comments POC-GLUCOSE METER 260 mg/dL 70-110 H [facility]ED [facility] (test code = [place] 1538) [address] POCT-GLUCOSE [id number] 17:32:00 Test Item Value Reference Range Interpretation Comments POC-GLUCOSE METER 237 mg/dL 70-110 H TESTED AT [facility] 67 (BEAKER) (test code = [place] 1538) [address] POCT-GLUCOSE [id number] 16:21:00 Test Item Value Reference Range Interpretation Comments POC-GLUCOSE METER 223 mg/dL 70-110 H TESTED AT [facility] 67 ([facility]) (test code = [place] [facility] 1538) [address] CBC W/PLT COUNT & AUTO [id number] 14:22:00 Test Item Value Reference Range Interpretation [...] (BEAKER) (test code = Normal 762) POCT-GLUCOSE [id number] 11:52:00 Test Item Value Reference Range Interpretation Comments POC-GLUCOSE METER 143 mg/dL 70-110 H TESTED AT [facility] 6720 (BEAKER) (test code = [place] [facility] 1538) [address] POCT-GLUCOSE [id number] 08:04:00 Test Item Value Reference Range Interpretation Comments POC-GLUCOSE METER 86 mg/dL 70-110 TESTED AT [facility] 6720 (BEAKER) (test code = [place] [facility] [address] 1538) [id number] 06:07:00 Test Item Value Reference Range Interpretation Comments MAGNESIUM (BEAKER) 1.6 mg/dL 1.6-2.6 Specimen slightly (test code = 627) hemolyzed BASIC METABOLIC [id number] 06:07:00 Test Item Value Reference Range Interpretation [...] NOT APPLICABLE FOR DIALYSIS PATIEN TS. POCT-GLUCOSE [id number] 20:42:00 Test Item Value Reference Range Interpretation Comments POC-GLUCOSE METER 338 mg/dL 70-110 H TESTED AT [facility] 6720 ([facility]) (test code = [place] [facility] 1538) [address] POCT-GLUCOSE [id number] 17:41:00 Test Item Value Reference Range Interpretation Comments POC-GLUCOSE METER 303 mg/dL 70-110 H TESTED AT [facility] 6720 ([facility]) (test code = [place] [facility] 1538) [address] RAD, CHEST, 1 VIEW, NON [id number] 14:44:00Reason for exam:->shortness of breath s/p RHCShould this be performed at the bedside?->YesFINAL REPORT CLINICAL HISTORY: shortness of breath s/p RHC TECHNIQUE: 1 view ofthe chest. COMPARISON: 01/31/2017 IMPRESSION: Trace bilateral pleural effusions are again seen with left basilar atelectasis. The cardiomediastinal silhouette is magnified by technique with a pacemaker. Signed: Barbara Espinoza MDReport Verified Date/Time: 02/05/2017 14:44:20 Reading Location: [facility] C013W Consult Reading Room CBC W/PLT COUNT & AUTO [id number] 14:37:00 Test Item Value Reference Range Interpretation [...] (BEAKER) (test code = Normal 762) POCT-GLUCOSE [id number] 12:08:00 Test Item Value Reference Range Interpretation Comments POC-GLUCOSE METER 197 mg/dL 70-110 H TESTED AT [facility] 67 (BEAKER) (test code = [facility] 1538) [address] POCT-GLUCOSE [id number] 07:55:00 Test Item Value Reference Range Interpretation Comments POC-GLUCOSE METER 149 mg/dL 70-110 H [facility] [place] [address] [facility] (test code = [facility] 1538) [address] [id number] 05:21:00 Test Item Value Reference Range Interpretation Comments MAGNESIUM (BEAKER) (test code = 1.4 mg/dL 1.6-2.6 L 627) BASIC METABOLIC [id number] 05:21:00 Test Item Value Reference Range Interpretation [...] NOT APPLICABLE FOR DIALYSIS PATIEN TS. POCT-GLUCOSE [id number] 21:03:00 Test Item Value Reference Range Interpretation Comments POC-GLUCOSE METER 296 mg/dL 70-110 H TESTED AT [facility] 6720 (BEAKER) (test code = [place] 1538) [address] POCT-GLUCOSE [id number] 17:18:00 Test Item Value Reference Range Interpretation Comments POC-GLUCOSE METER 275 mg/dL 70-110 H TESTED AT [facility] 6720 (AKER) (test code = [place] 1538) [address] CBC W/PLT COUNT & AUTO [id number] 15:04:00 Test Item Value Reference Range Interpretation [...] COUNTED (BEAKER) (test code = 1351) POCT-GLUCOSE [id number] 12:17:00 Test Item Value Reference Range Interpretation Comments POC-GLUCOSE METER 208 mg/dL 70-110 H TESTED AT [facility] 6720 (BEAKER) (test code = [place] 1538) [address] POCT-GLUCOSE [id number] 08:57:00 Test Item Value Reference Range Interpretation Comments POC-GLUCOSE METER 230 mg/dL 70-110 H TESTED AT [facility] 6720 (BEAKER) (test code = [place] 1538) [address] [id number] 05:56:00 Test Item Value Reference Range Interpretation Comments MAGNESIUM (BEAKER) (test code = 1.6 mg/dL 1.6-2.6 627) BASIC METABOLIC [id number] 05:56:00 Test Item Value Reference Range Interpretation [...] NOT APPLICABLE FOR DIALYSIS PATIEN TS. POCT-GLUCOSE [id number] 21:20:00 Test Item Value Reference Range Interpretation Comments POC-GLUCOSE METER 329 mg/dL 70-110 H Notified Mandi Smith MD/TESTED (BEAKER) (test code = AT [facility] [address] [address]) [facility] 7[address] 0 POCT-GLUCOSE [id number] 18:14:00 Test Item Value Reference Range Interpretation Comments POC-GLUCOSE METER 299 mg/dL 70-110 H TESTED AT [facility] 6720 ([facility]) (test code = [place] [facility] 1538) [address] CBC W/PLT COUNT & AUTO [id number] 15:17:00 Test Item Value Reference Range Interpretation [...] (BEAKER) (test code = Normal 762) POCT-GLUCOSE [id number] 12:54:00 Test Item Value Reference Range Interpretation Comments POC-GLUCOSE METER 173 mg/dL 70-110 H TESTED AT [facility] 6720 (BEAKER) (test code = [place] 1538) [address] URINALYSIS W/ REFLEX URINE [id number] 12:06:00 Test Item Value Reference Range Interpretation [...] code = 1584) SOURCE(BEAKER) (test code = 9905) CREATININE, RANDOM [id number] 10:52:00 Test Item Value Reference Range Interpretation Comments CREATININE URINE (BEAKER) (test 127.3 mg/dL code = 375) Reference Range: No NormalsPROTEIN, RANDOM [id number] 10:52:00 Test Item Value Reference Range Interpretation Comments PROTEIN, URINE (BEAKER) (test code = 19 mg/dL 0-14 H 1569) POCT-GLUCOSE [id number] 07:55:00 Test Item Value Reference Range Interpretation Comments POC-GLUCOSE METER 88 mg/dL 70-110 TESTED AT [facility] 6720 (BEAKER) (test code = [place] [address] 1538) [id number] 05:22:00 Test Item Value Reference Range Interpretation Comments MAGNESIUM (BEAKER) (test code = 1.8 mg/dL 1.6-2.6 627) BASIC METABOLIC [id number] 05:22:00 Test Item Value Reference Range Interpretation [...] 0-100 H (test code = 700) POCT-GLUCOSE [id number] 21:36:00 Test Item Value Reference Range Interpretation Comments POC-GLUCOSE METER 230 mg/dL 70-110 H TESTED AT [place] [address] ([facility]) (test code = [facility] 1538) [address] POCT-GLUCOSE [id number] 17:50:00 Test Item Value Reference Range Interpretation Comments POC-GLUCOSE METER 185 mg/dL 70-110 H TESTED AT [place] [address] ([facility]) (test code = [facility] 1538) [address] POCT-GLUCOSE [id number] 12:49:00 Test Item Value Reference Range Interpretation Comments POC-GLUCOSE METER 168 mg/dL 70-110 H TESTED AT [place] [address] ([facility]) (test code = [facility] 1538) [address] CT, CHEST, WITHOUT [id number] 11:27:00FINAL REPORT Chest CT without contrast Reason for study: Pneumonia Comparison:Chest x-ray, 01/31/2017 Technique: Non contrast chest CT Dose modulation, iterative reconstruction, and/or weight based adjustment of the mA/kV was utilized to reduce the radiation dose to as low as reasonably achievable. Discussion: A small intermediate density pericardial effusion is identified. Theattenuation measures between 40 and 50 Hounsfield units. [...] and right lung base. These may represent dilatedperipheral pulmonary artery branches or more likely impacted bronchioles. There are some mild degenerative changes at the lower thoracic spine. Limited exam of the upper abdomen shows no acute non contrast abnormality. IMPRESSION 1. Small intermediate density pericardial effusion. This could representproteinaceous fluid or hemorrhage. This may be evaluated further with echocardiography. 2. Small right and trace left pleural effusion with basilar subsegmental and compressive atelectasis. No consolida tion. 3. Peripheral tubular densities in the left lung apex and right lung base. These may representdilated pulmonary arterial branches or possibly impacted peripheral airways. This could be followed.Signed: Car Madrigal MDReport Verified Date/Time: 02/02/2017 11:27:58 Reading Location: [address] Consult Reading Room POCT-GLUCOSE [id number] 08:24:00 Test Item Value Reference Range Interpretation Comments POC-GLUCOSE METER 84 mg/dL 70-110 TESTED AT [facility] 6720 ([facility]) (test code = [place] [facility] [address] 1538) [id number] 07:42:00 Test Item Value Reference Range Interpretation Comments MAGNESIUM (BEAKER) (test code = 1.8 mg/dL 1.6-2.6 627) BASIC METABOLIC [id number] 07:42:00 Test Item Value Reference Range Interpretation [...] PATIEN TS. CBC W/PLT COUNT & AUTO [id number] 07:40:00 Test Item Value Reference Range Interpretation [...] PERCENT (BEAKER) (test code = 2801) POCT-GLUCOSE [id number] 21:29:00 Test Item Value Reference Range Interpretation Comments POC-GLUCOSE METER 273 mg/dL 70-110 H [facility]ED AT [facility] (test code = [place] [facility] 1538) [address] POCT-GLUCOSE [id number] 19:21:00 Test Item Value Reference Range Interpretation Comments POC-GLUCOSE METER 286 mg/dL 70-110 H [facility] AT [place] [address] [facility] (test code = [place] [facility] 1538) [address] POCT-GLUCOSE [id number] 17:33:00 Test Item Value Reference Range Interpretation Comments POC-GLUCOSE METER 263 mg/dL 70-110 H TESTED AT [facility] 6720 ([facility]) (test code = [place] [facility] 1538) [address] POCT-GLUCOSE [id number] 12:25:00 Test Item Value Reference Range Interpretation Comments POC-GLUCOSE METER 196 mg/dL 70-110 H TESTED AT [facility] 6720 ([facility]) (test code = [place] [facility] 1538) [address] CBC W/PLT COUNT & AUTO [id number] 10:54:00 Test Item Value Reference Range Interpretation [...] (BEAKER) (test code = Normal 762) POCT-GLUCOSE [id number] 08:17:00 Test Item Value Reference Range Interpretation Comments POC-GLUCOSE METER 176 mg/dL 70-110 H TESTED AT [facility] 6720 (BEAKER) (test code = [facility] 1538) [address] [id number] 06:41:00 Test Item Value Reference Range Interpretation Comments MAGNESIUM (BEAKER) (test code = 1.7 mg/dL 1.6-2.6 627) BASIC METABOLIC [id number] 06:41:00 Test Item Value Reference Range Interpretation [...] NOT APPLICABLE FOR DIALYSIS PATIEN TS. POCT-GLUCOSE [id number] 21:33:00 Test Item Value Reference Range Interpretation Comments POC-GLUCOSE METER 295 mg/dL 70-110 H TESTED AT [facility] 6720 (BEAKER) (test code = [facility] 1538) [address] POCT-GLUCOSE [id number] 17:47:00 Test Item Value Reference Range Interpretation Comments POC-GLUCOSE METER 277 mg/dL 70-110 H TESTED AT [place] [address] ([facility]) (test code = [place] [facility] 1538) [address] RAD, CHEST, 2 [id number] 15:44:00Reason for exam:->dyspneaFINAL REPORT HISTORY : dyspnea. [...] Moran Verified Date/Time: 01/31/2017 15:44:13 Reading Location: [address] Ortho Consult Reading Room -GLUCOSE [id number] 11:51:00 Test Item Value Reference Range Interpretation Comments POC-GLUCOSE METER 238 mg/dL 70-110 H TESTED AT [place] [address] ([facility]) (test code = [place] [facility] 1538) [address] POCT-GLUCOSE [id number] 09:54:00 Test Item Value Reference Range Interpretation Comments POC-GLUCOSE METER 224 mg/dL 70-110 H TESTED AT [place] [address] ([facility]) (test code = [place] [facility] 1538) [address] CBC W/PLT COUNT & AUTO [id number] 05:34:00 Test Item Value Reference Range Interpretation Comments WHITE BLOOD CELL COUNT ([facility]) 9.4 K/ L 3.5-10.5 (test code = 775) RED BLOOD CELL COUNT ([facility]) 4.42 M/ L 4.63-6.08 L (test code = 761) HEMOGLOBIN ([facility]) (test code = 12.1 GM/DL 13.7-17.5 L [...] 0-1 PERCENT (BEAKER) (test code = 2801) [id number] 05:19:00 Test Item Value Reference Range Interpretation Comments MAGNESIUM (BEAKER) (test code = 1.8 mg/dL 1.6-2.6 627) BASIC METABOLIC [id number] 05:19:00 Test Item Value Reference Range Interpretation [...] APPLICABLE FOR DIALYSIS PATIEN TS. STREP PNEUMONIAE [id number] 23:56:00 Test Item Value Reference Range Interpretation [...] detection limit of the test. LEGIONELLA ANTIGEN, [id number] 23:54:00 Test Item Value Reference Range Interpretation [...] may cau se disease. INFLUENZA A H1N1 [id number] 23:10:00 Test Item Value Reference Range Interpretation Comments INFLUENZA A RNA Not Detected Not Detected, (BEAKER) (test code = Inconclusive 1545) NOVEL H1N1 RNA (BEAKER) Not Detected Not Detected, (test code = 1546) Inconclusive These assays were performed by real-time RT-PCR (regional retail sales manager-PCR) utilizing fluorogenic hydrolysis probe technology for the detection of human Influenza A viruses and the differential detection of novel H1N1 Influenza virus in respiratory specimens. The test is composed of (1) an RNA extraction from patient specimen, and (2) regional retail sales manager-PCR amplification and detection with human Influenza A and novel Q0Y0-wexhkbdq primers and probes. A well-conserved region of [...] 1988.These assays were performed by real-time RT-PCR (regional retail sales manager-PCR) utilizing fluorogenic hydrolysis probe technology for the detection of human Influenza A viruses and the differential detection of novel H1N1 Influenza virus in respiratory specimens. The test is composed of (1) an RNA extraction from patient specimen, and (2) regional retail sales manager-PCR amplification and detection with human Influenza A and novel X9F2-nwacifwq primers and probes. A well-conserved region of [...] by [employer] [facility] Amendments of 1988. POCT-GLUCOSE [id number] 23:03:00 Test Item Value Reference Range Interpretation Comments POC-GLUCOSE METER 233 mg/dL 70-110 H TESTED AT [facility] 6720 (BEAKER) (test code = [place] 1538) [address] U/S, RENAL, [id number] 22:23:00Reason for exam:->akiFINAL REPORT U/S, RENAL, COMPLETE [...] MDReport Verified Date/Time: 01/30/2017 22:23:06 Reading Location: [address] Consult Reading Room SODIUM, RANDOM [id number] 20:40:00 Test Item Value Reference Range Interpretation Comments SODIUM URINE (BEAKER) (test code = < meq/L 243) Reference Range: No NormalsEOSINOPHIL SMEAR, [id number] 20:40:00 Test Item Value Reference Range Interpretation Comments EOSINOPHIL SMEAR, URINE (BEAKER) No EOS seen No EOS seen (test code = 1851) CREATININE, RANDOM [id number] 20:24:00 Test Item Value Reference Range Interpretation Comments CREATININE URINE (BEAKER) (test 113.2 mg/dL code = 375) Reference Range: No NormalsMICROALBUMIN, RANDOM [id number] 20:24:00 Test Item Value Reference Range Interpretation Comments MICROALBUMIN URINE (BEAKER) (test 4.2 mg/dL code = 1794) Reference Range: No NormalsURINALYSIS W/ [id number] 20:14:00 Test Item Value Reference Range Interpretation [...] 516) SOURCE(BEAKER) (test code = Urine, Voided 9960) POCT-GLUCOSE [id number] 18:25:00 Test Item Value Reference Range Interpretation Comments POC-GLUCOSE METER 230 mg/dL 70-110 H [facility]ED [facility] (test code = [facility] 1538) [address] POCT-GLUCOSE [id number] 13:49:00 Test Item Value Reference Range Interpretation Comments POC-GLUCOSE METER 267 mg/dL 70-110 H TESTED AT [place] [address] ([facility]) (test code = [facility] 1538) [address]76 HEMOGLOBIN [id number] 11:50:00 Test Item Value Reference Range Interpretation Comments HEMOGLOBIN A1C (BEAKER) (test code = 10.7 % 4.3-6.1 H 368) TROPONIN [id number] 11:42:00 Test Item Value Reference Range Interpretation [...] acidosis, acute neurological disease, and persistent tachyarrhythmia.POCT-GLUCOSE [id number] 09:41:00 Test Item Value Reference Range Interpretation Comments POC-GLUCOSE METER 228 mg/dL 70-110 H TESTED AT [facility] 6720 (BEAKER) (test code = [place] 1538) [address] RAD, CHEST, 1 VIEW, NON [id number] 07:41:00Reason for exam:->eval pneumoniaShould this be performed [...] MDReport Verified Date/Time: 01/30/2017 07:41:41 Reading Location: [address] Transitional Reading Room [id number] 02:54:00 Test Item Value Reference Range Interpretation Comments MAGNESIUM (BEAKER) (test code = 1.6 mg/dL 1.6-2.6 627) BASIC METABOLIC [id number] 02:54:00 Test Item Value Reference Range Interpretation [...] FOR DIALYSIS PATIEN TS. RAPID INFLUENZA A&B [id number] 02:41:00 Test Item Value Reference Range Interpretation Comments RAPID INFLUENZA A AG (BEAKER) Negative Negative, Inconclusive (test code = 1622) RAPID INFLUENZA B AG (BEAKER) Negative Negative, Inconclusive (test code = 1623) CBC W/PLT COUNT & AUTO [id number] 02:07:00 Test Item Value Reference Range Interpretation [...] PERCENT (BEAKER) (test code = 2801) POCT-GLUCOSE [id number] 23:18:00 Test Item Value Reference Range Interpretation Comments POC-GLUCOSE METER 230 mg/dL 70-110 H TESTED AT [facility] 67[address] ([facility]) (test code = [place] [facility] 1538) [address] [id number] 10:03:00 Test Item Value Reference Range Interpretation Comments Potassium Lvl (test code = Potassium 4.1 3.5-5.1 Lvl) [facility]OxhlfwaLMRVCWPNGLBE0421-05-79 10:03:00 Test Item Value Reference Range Interpretation Comments Chloride Lvl (test code = Chloride Lvl) 105 95-109 [facility]HtojayqQTELEKKBCAXU4676-42-16 10:03:00 Test Item Value Reference Range Interpretation Comments CO2 (test code = CO2) 25 24-32 [facility]viewBifmnreZPQETYKPWTMP5411-89-73 10:03:00 Test Item Value Reference Range Interpretation Comments eGFR (test code = eGFR) 74 [facility]PsimgdeXCSWWHKOWVQX4450-20-46 10:03:00 Test Item Value Reference Range Interpretation Comments BUN (test code = BUN) 16 7-22 [facility]UmborstLWJRUDOPCMVZ2740-74-20 10:03:00 Test Item Value Reference Range Interpretation Comments Glucose Lvl (test code = Glucose Lvl) 177 70-99 [facility] HospitalFeemzrlOUXRQTRZKFCM0273-39-42 10:03:00 Test Item Value Reference Range Interpretation Comments Calcium Lvl (test code = Calcium Lvl) 8.7 8.5-10.5 [facility]AukklccLOPOFXTXNBOZ3651-14-26 10:03:00 Test Item Value Reference Range Interpretation Comments Creatinine Lvl (test code = Creatinine 1.00 0.50-1.40 Lvl) [facility] SystemNowxeivRMPZWWKZPCXQ1348-06-51 10:03:00 Test Item Value Reference Range Interpretation Comments Sodium Lvl (test code = Sodium Lvl) 137 135-145 [facility]vineExoitegXZLNENQXJA3956-50-62 10:03:00 Test Item Value Reference Range Interpretation Comments Plt Morph (test code = Normal (09/12/16 5:03 AM) Plt Morph) [facility]rapevineOnnvrqaLSQBQLODYF1585-75-54 10:03:00 Test Item Value Reference Range Interpretation Comments Bands (test code = 0.0 See_Comment [Automat ed message] The Bands) system which ge nerated this result transmit vy reference range : <=11.0. The reference r gianfranco was not used to interpr et this result as daquan l/abnormal. [facility]rapevinePhxwmfrTSEXOKKYQG0586-20-81 10:03:00 Test Item Value Reference Range Interpretation Comments Atypical Lymphs (test code = Atypical 0.0 Lymphs) [facility]rapevineHrypfvzHFWIZMLRFI2121-15-22 10:03:00 Test Item Value Reference Range Interpretation Comments Monocytes (test code = Monocytes) 17.0 2.0-12.0 [facility]rapevineGzekblhVTWKUKUUQL7003-50-83 10:03:00 Test Item Value Reference Range Interpretation Comments RBC Morph (test code = Normal (09/12/16 5:03 AM) RBC Morph) [facility] GrapevineLpjgurfWJQTZKIMPM5622-10-21 10:03:00 Test Item Value Reference Range Interpretation Comments Eosinophils (test code = 1.0 See_Comment [A utomated message] The Eosinophils) system which ge nerated this result tra nsmitted reference range : <=4.0. The reference r gianfranco was not used to int erpret this result as normal/abnormal . [facility] GrapevineNuzlchiDZENELLUNU2302-93-31 10:03:00 Test Item Value Reference Range Interpretation Comments Lymphocytes (test code = Lymphocytes) 27.0 20.0-40.0 [facility]rapevineGgjqhfrNONKTOWJAA1585-43-62 10:03:00 Test Item Value Reference Range Interpretation Comments Segs-Bands # (test code = Segs-Bands #) 4.8 1.5-8.1 [facility]rapevineMzdajcyEETACWDGZA9692-81-37 10:03:00 Test Item Value Reference Range Interpretation Comments Lymphocytes # (test code = Lymphocytes 2.3 1.0-5.5 #) [facility]rapevineQdcqwjmKFPDSFMUAU6485-07-12 10:03:00 Test Item Value Reference Range Interpretation Comments Segs (test code = Segs) 55.0 45.0-75.0 [facility]rapevineQrzpyhgXLPOQOFDSC7458-81-65 10:03:00 Test Item Value Reference Range Interpretation Comments Eosinophils # (test code 0.1 See_Comment [A utomated message] The = Eosinophils #) system whic h generated this result tra nsmitted reference range : <=0.5. The reference r gianfranco was not used to int erpret this result as normal/abnormal . [facility]rapevineOiyprzwYTZVKUQYFO5317-24-16 10:03:00 Test Item Value Reference Range Interpretation Comments Monocytes # (test code 1.5 See_Comment [Aut omated message] The = Monocytes #) system which generated this result tra nsmitted reference range : <=0.8. The reference r gianfranco was not used to int erpret this result as normal/abnormal . [facility]rapevineMpttmzaELDWKDGLEN3828-75-91 10:03:00 Test Item Value Reference Range Interpretation Comments MPV (test code = MPV) 7.7 7.4-10.4 [facility]rapevineJbzysnoQJPJGQQSAH4838-82-00 10:03:00 Test Item Value Reference Range Interpretation Comments MCH (test code = MCH) 29.8 pg 27.0-31.0 [facility] GrapevineUxszzfaDRTVYESTJS8902-10-25 10:03:00 Test Item Value Reference Range Interpretation Comments MCV (test code = MCV) 88.2 80.0-94.0 [facility] GrapevineYovlfbaKSKVUIDDOT7474-89-44 10:03:00 Test Item Value Reference Range Interpretation Comments Platelet (test code = Platelet) 177 133-450 [facility] GrapevineUyieorfHTRDOIBOLN6036-28-68 10:03:00 Test Item Value Reference Range Interpretation Comments RDW (test code = RDW) 14.7 11.5-14.5 [facility]rapevineTyqupihRSIJEQFRYN7659-39-97 10:03:00 Test Item Value Reference Range Interpretation Comments MCHC (test code = MCHC) 33.8 32.0-36.0 [facility]rapevineCjxcawoWLJNAVGDRI2545-61-38 10:03:00 Test Item Value Reference Range Interpretation Comments RBC (test code = RBC) 3.97 4.70-6.10 [facility]rapevineHbwgbxmZHLTEDNEBI0444-77-74 10:03:00 Test Item Value Reference Range Interpretation Comments Hgb (test code = Hgb) 11.8 14.0-18.0 [facility]rapevineHvrysygTOCTACPJUF9644-26-24 10:03:00 Test Item Value Reference Range Interpretation Comments WBC (test code = WBC) 8.7 3.7-10.4 [facility]rapevineHbxpqmcPYTNVQMJHC0502-94-68 10:03:00 Test Item Value Reference Range Interpretation Comments Hct (test code = Hct) 35.0 42.0-54.0 [facility]2017-08-05 10:03:00 Test Item Value Reference Range Interpretation Comments Phosphorus (test code = Phosphorus) 3.1 2.5-4.5 [facility]2017-08-05 10:03:00 Test Item Value Reference Range Interpretation Comments Magnesium Lvl (test code = Magnesium 2.6 1.8-2.4 Lvl) [facility] SystemCxeldlyLGDYIETRAYCH1890-05-38 10:03:00 Test Item Value Reference Range Interpretation Comments AGAP (test code = AGAP) 11.1 10.0-20.0 [facility] SystemSpdmuudVBMVYOSRXSZO4165-86-70 10:03:00 Test Item Value Reference Range Interpretation Comments Potassium Lvl (test code = Potassium 4.1 3.5-5.1 Lvl) [facility] SystemZpjcswkZADPVRTBOZGK8701-73-20 10:03:00 Test Item Value Reference Range Interpretation Comments Chloride Lvl (test code = Chloride Lvl) 105 95-109 [facility] SystemJqgunlvOEXUNAISTYTP0570-74-02 10:03:00 Test Item Value Reference Range Interpretation Comments CO2 (test code = CO2) 25 24-32 [facility] SystemMuvjtnqJNEBWNTAUJTR2505-60-36 10:03:00 Test Item Value Reference Range Interpretation Comments eGFR (test code = eGFR) 74 [facility] SystemHyckwofTIFPKHRHBWQY5214-36-49 10:03:00 Test Item Value Reference Range Interpretation Comments BUN (test code = BUN) 16 7-22 [facility] SystemUclermgWCUFGAJJYRYM1877-43-82 10:03:00 Test Item Value Reference Range Interpretation Comments Glucose Lvl (test code = Glucose Lvl) 177 70-99 [facility] SystemPokyxvyGRYACAYGAKUN6970-83-38 10:03:00 Test Item Value Reference Range Interpretation Comments Calcium Lvl (test code = Calcium Lvl) 8.7 8.5-10.5 [facility] SystemAservlxVHQCZXIDXOTE3770-57-79 10:03:00 Test Item Value Reference Range Interpretation Comments Creatinine Lvl (test code = Creatinine 1.00 0.50-1.40 Lvl) [facility] SystemTcrrpuhIBOTKURJQDAO3297-47-34 10:03:00 Test Item Value Reference Range Interpretation Comments Sodium Lvl (test code = Sodium Lvl) 137 135-145 [facility]rapevineWlfrgvkJOIPUDFNFY6976-25-76 10:03:00 Test Item Value Reference Range Interpretation Comments Plt Morph (test code = Normal (09/12/16 5:03 AM) Plt Morph) [facility]rapevineSctmamxCFDILSFQXD2592-89-38 10:03:00 Test Item Value Reference Range Interpretation Comments Bands (test code = 0.0 See_Comment [Automat ed message] The Bands) system which ge nerated this result transmit vy reference range : <=11.0. The reference r gianfranco was not used to interpr et this result as daquan l/abnormal. [facility] GrapevineLupnukgZIUYVLWGFO9774-55-45 10:03:00 Test Item Value Reference Range Interpretation Comments Atypical Lymphs (test code = Atypical 0.0 Lymphs) [facility]rapevineLubtxewXJDYVYCBLV9819-60-30 10:03:00 Test Item Value Reference Range Interpretation Comments Monocytes (test code = Monocytes) 17.0 2.0-12.0 [facility]vineOhgrxybKXQLBAAELH1926-12-09 10:03:00 Test Item Value Reference Range Interpretation Comments RBC Morph (test code = Normal (09/12/16 5:03 AM) RBC Morph) [facility]rapevinePvjayeoZMQDBFUEUB8628-39-49 10:03:00 Test Item Value Reference Range Interpretation Comments Eosinophils (test code = 1.0 See_Comment [A utomated message] The Eosinophils) system which ge nerated this result tra nsmitted reference range : <=4.0. The reference r gianfranco was not used to int erpret this result as normal/abnormal . [facility]rapevineSmwejucEZCHTTAJZR9806-81-03 10:03:00 Test Item Value Reference Range Interpretation Comments Lymphocytes (test code = Lymphocytes) 27.0 20.0-40.0 [facility]rapevineSvxgixmRVUYSQRUIX0780-93-43 10:03:00 Test Item Value Reference Range Interpretation Comments Segs-Bands # (test code = Segs-Bands #) 4.8 1.5-8.1 [facility] GrapevineDogfydjOIRWNGLAEB5313-44-77 10:03:00 Test Item Value Reference Range Interpretation Comments Lymphocytes # (test code = Lymphocytes 2.3 1.0-5.5 #) [facility] GrapevineDhphoakYMECLWLVSL3655-75-59 10:03:00 Test Item Value Reference Range Interpretation Comments Segs (test code = Segs) 55.0 45.0-75.0 [facility]rapevineBmnwfcjDGHUEBBTEH3772-39-31 10:03:00 Test Item Value Reference Range Interpretation Comments Eosinophils # (test code 0.1 See_Comment [A utomated message] The = Eosinophils #) system whic h generated this result tra nsmitted reference range : <=0.5. The reference r gianfranco was not used to int erpret this result as normal/abnormal . [facility]rapevineLltpwzgWUZRROSDBL5903-60-80 10:03:00 Test Item Value Reference Range Interpretation Comments Monocytes # (test code 1.5 See_Comment [Aut omated message] The = Monocytes #) system which generated this result tra nsmitted reference range : <=0.8. The reference r gianfranco was not used to int erpret this result as normal/abnormal . [facility] GrapevineBouacozCVCSHUCVBT7535-34-61 10:03:00 Test Item Value Reference Range Interpretation Comments MPV (test code = MPV) 7.7 7.4-10.4 [facility] GrapevineKwcuczqKNEPNHPATG3204-36-88 10:03:00 Test Item Value Reference Range Interpretation Comments MCH (test code = MCH) 29.8 pg 27.0-31.0 [facility] GrapevineHcnlhdzCTYCISEJZD9839-25-57 10:03:00 Test Item Value Reference Range Interpretation Comments MCV (test code = MCV) 88.2 80.0-94.0 [facility]rapevineMntzcpoXPMUPLWBJU0721-97-69 10:03:00 Test Item Value Reference Range Interpretation Comments Platelet (test code = Platelet) 177 133-450 [facility] GrapevineVdvtpfaQAEANEJRZV5308-35-01 10:03:00 Test Item Value Reference Range Interpretation Comments RDW (test code = RDW) 14.7 11.5-14.5 [facility] GrapevineRrinjguOLRPIGILWT1907-79-18 10:03:00 Test Item Value Reference Range Interpretation Comments MCHC (test code = MCHC) 33.8 32.0-36.0 [facility] GrapevineYcbnzhmIIHPNKHNQX4664-68-93 10:03:00 Test Item Value Reference Range Interpretation Comments RBC (test code = RBC) 3.97 4.70-6.10 [facility] GrapevineTwfamjoYYNYUIWNSK2558-05-89 10:03:00 Test Item Value Reference Range Interpretation Comments Hgb (test code = Hgb) 11.8 14.0-18.0 [facility] GrapevineNdvwulsCBIJMSMKHP1287-21-56 10:03:00 Test Item Value Reference Range Interpretation Comments WBC (test code = WBC) 8.7 3.7-10.4 [facility] GrapevineWiptzlxHVGHQCWUAO5172-16-31 10:03:00 Test Item Value Reference Range Interpretation Comments Hct (test code = Hct) 35.0 42.0-54.0 [facility]2017-08-05 10:03:00 Test Item Value Reference Range Interpretation Comments Phosphorus (test code = Phosphorus) 3.1 2.5-4.5 [facility]2017-08-05 10:03:00 Test Item Value Reference Range Interpretation Comments Magnesium Lvl (test code = Magnesium 2.6 1.8-2.4 Lvl) [facility] SystemLphvkxqSAVTKHMZPHXZ4838-71-34 10:03:00 Test Item Value Reference Range Interpretation Comments AGAP (test code = AGAP) 11.1 10.0-20.0 [facility] SystemXzgrovhLSPOYHHJYBQC1381-80-09 10:03:00 Test Item Value Reference Range Interpretation Comments Potassium Lvl (test code = Potassium 4.1 3.5-5.1 Lvl) [facility] SystemCtfvlgyJKUUWCQJIHYG7156-38-66 10:03:00 Test Item Value Reference Range Interpretation Comments Chloride Lvl (test code = Chloride Lvl) 105 95-109 [facility] SystemIdhkmlyYOBSSUKXHKGG5831-28-83 10:03:00 Test Item Value Reference Range Interpretation Comments CO2 (test code = CO2) 25 24-32 [facility] SystemEokfplkOVKPUJOZHXCI7531-13-98 10:03:00 Test Item Value Reference Range Interpretation Comments eGFR (test code = eGFR) 74 [facility] SystemXkemvitYSTSHKEEZKXD0191-13-72 10:03:00 Test Item Value Reference Range Interpretation Comments BUN (test code = BUN) 16 7-22 [facility] SystemNuuqgspEXCHEDNHXWZM9390-49-15 10:03:00 Test Item Value Reference Range Interpretation Comments Glucose Lvl (test code = Glucose Lvl) 177 70-99 [facility] SystemTcncatvXJXSFQKMTXSN8192-41-47 10:03:00 Test Item Value Reference Range Interpretation Comments Calcium Lvl (test code = Calcium Lvl) 8.7 8.5-10.5 [facility] SystemWrqhsbzVNSQFLRNGUGY2574-74-59 10:03:00 Test Item Value Reference Range Interpretation Comments Creatinine Lvl (test code = Creatinine 1.00 0.50-1.40 Lvl) [facility] SystemTvztixlEMOQNDQWDWLJ6066-41-02 10:03:00 Test Item Value Reference Range Interpretation Comments Sodium Lvl (test code = Sodium Lvl) 137 135-145 [facility]rapevineEzibeftMLZOSMGGWM2142-81-31 10:03:00 Test Item Value Reference Range Interpretation Comments Plt Morph (test code = Normal (09/12/16 5:03 AM) Plt Morph) [facility]rapevineKugzmjwLCUQCUIJFQ0368-80-00 10:03:00 Test Item Value Reference Range Interpretation Comments Bands (test code = 0.0 See_Comment [Automat ed message] The Bands) system which ge nerated this result transmit vy reference range : <=11.0. The reference r gianfranco was not used to interpr et this result as daquan l/abnormal. [facility] GrapevineInyfhugAHTOPAALZN1810-05-72 10:03:00 Test Item Value Reference Range Interpretation Comments Atypical Lymphs (test code = Atypical 0.0 Lymphs) [facility] GrapevineGanykokTPDIJMAYNL7371-80-69 10:03:00 Test Item Value Reference Range Interpretation Comments Monocytes (test code = Monocytes) 17.0 2.0-12.0 [facility] GrapevineVjubpytPNWSYVFINL5267-69-77 10:03:00 Test Item Value Reference Range Interpretation Comments RBC Morph (test code = Normal (09/12/16 5:03 AM) RBC Morph) [facility]rapevineHmndmnoPLUIVUVAVU2261-26-64 10:03:00 Test Item Value Reference Range Interpretation Comments Eosinophils (test code = 1.0 See_Comment [A utomated message] The Eosinophils) system which ge nerated this result tra nsmitted reference range : <=4.0. The reference r gianfranco was not used to int erpret this result as normal/abnormal . [facility] GrapevineNispxsgKUKPDIUNRA5390-05-18 10:03:00 Test Item Value Reference Range Interpretation Comments Lymphocytes (test code = Lymphocytes) 27.0 20.0-40.0 [facility]rapevineEzvgbjuOMCGQPSEBH9681-50-29 10:03:00 Test Item Value Reference Range Interpretation Comments Segs-Bands # (test code = Segs-Bands #) 4.8 1.5-8.1 [facility] GrapevineZrgwkpeESCDPVTUNL0093-85-21 10:03:00 Test Item Value Reference Range Interpretation Comments Lymphocytes # (test code = Lymphocytes 2.3 1.0-5.5 #) [facility]rapevineSgvcqjuIECWPCUJYB2081-73-02 10:03:00 Test Item Value Reference Range Interpretation Comments Segs (test code = Segs) 55.0 45.0-75.0 [facility] GrapevineAuzpupiGQLGRFITDO3465-50-41 10:03:00 Test Item Value Reference Range Interpretation Comments Eosinophils # (test code 0.1 See_Comment [A utomated message] The = Eosinophils #) system whic h generated this result tra nsmitted reference range : <=0.5. The reference r gianfranco was not used to int erpret this result as normal/abnormal . [facility] GrapevineFmmaxkaSCUVJRPJDG1559-95-96 10:03:00 Test Item Value Reference Range Interpretation Comments Monocytes # (test code 1.5 See_Comment [Aut omated message] The = Monocytes #) system which generated this result tra nsmitted reference range : <=0.8. The reference r gianfranco was not used to int erpret this result as normal/abnormal . [facility] GrapevineRumpaiaTIXBTCNOAW8387-68-60 10:03:00 Test Item Value Reference Range Interpretation Comments MPV (test code = MPV) 7.7 7.4-10.4 [facility] GrapevineOaoayfzOLFECYUDVL8497-83-98 10:03:00 Test Item Value Reference Range Interpretation Comments MCH (test code = MCH) 29.8 pg 27.0-31.0 [facility] GrapevineMvpedvdQEYDQAIKCG1068-46-72 10:03:00 Test Item Value Reference Range Interpretation Comments MCV (test code = MCV) 88.2 80.0-94.0 [facility] GrapevineZtnokplCITAJCGIFB6353-17-98 10:03:00 Test Item Value Reference Range Interpretation Comments Platelet (test code = Platelet) 177 133-450 [facility] GrapevineJqhddvnBOYALJSQBD4657-54-59 10:03:00 Test Item Value Reference Range Interpretation Comments RDW (test code = RDW) 14.7 11.5-14.5 [facility] GrapevineEpzyoutUTRIUQTIAQ8813-70-37 10:03:00 Test Item Value Reference Range Interpretation Comments MCHC (test code = MCHC) 33.8 32.0-36.0 [facility]rapevineEseepwlMFTUOMDZWV2810-99-47 10:03:00 Test Item Value Reference Range Interpretation Comments RBC (test code = RBC) 3.97 4.70-6.10 [facility] GrapevineVihrobdIICOWSMDCK6458-59-21 10:03:00 Test Item Value Reference Range Interpretation Comments Hgb (test code = Hgb) 11.8 14.0-18.0 [facility] GrapevineSoefsptLGEWIXRYFC8229-79-60 10:03:00 Test Item Value Reference Range Interpretation Comments WBC (test code = WBC) 8.7 3.7-10.4 [facility] GrapevineUvvqoabQKSYBVKKQX7821-30-30 10:03:00 Test Item Value Reference Range Interpretation Comments Hct (test code = Hct) 35.0 42.0-54.0 [facility]2017-08-05 10:03:00 Test Item Value Reference Range Interpretation Comments Phosphorus (test code = Phosphorus) 3.1 2.5-4.5 [facility]2017-08-05 10:03:00 Test Item Value Reference Range Interpretation Comments Magnesium Lvl (test code = Magnesium 2.6 1.8-2.4 Lvl) [facility]2017-08-05 10:03:00 Test Item Value Reference Range Interpretation Comments Phosphorus (test code = Phosphorus) 3.1 2.5-4.5 [facility]2017-08-05 10:03:00 Test Item Value Reference Range Interpretation Comments Magnesium Lvl (test code = Magnesium 2.6 1.8-2.4 Lvl) [facility]WcssviiETUYDJEDFEAD7034-29-90 10:03:00 Test Item Value Reference Range Interpretation Comments AGAP (test code = AGAP) 11.1 10.0-20.0 [facility] SystemBgqgyqwIEWSHCKACAKB3619-50-16 10:03:00 Test Item Value Reference Range Interpretation Comments AGAP (test code = AGAP) 11.1 10.0-20.0 [facility] SystemVviudjpHQKYUPSQXYJO0375-09-49 10:03:00 Test Item Value Reference Range Interpretation Comments Potassium Lvl (test code = Potassium 4.1 3.5-5.1 Lvl) [facility] SystemRnfukyhSEKLSWGIGSKH9228-75-56 10:03:00 Test Item Value Reference Range Interpretation Comments Chloride Lvl (test code = Chloride Lvl) 105 95-109 [facility] SystemWlpwotwZLZTJPBFKOTX1269-96-63 10:03:00 Test Item Value Reference Range Interpretation Comments CO2 (test code = CO2) 25 24-32 [facility] SystemVucfayfNZDWFAOTCALK0124-92-42 10:03:00 Test Item Value Reference Range Interpretation Comments eGFR (test code = eGFR) 74 [facility] SystemIyggrtaPRQUHKHICAWF0600-02-85 10:03:00 Test Item Value Reference Range Interpretation Comments BUN (test code = BUN) 16 7-22 [facility] SystemZelddunHWJSQKTMSWIL2618-85-14 10:03:00 Test Item Value Reference Range Interpretation Comments Glucose Lvl (test code = Glucose Lvl) 177 70-99 [facility] SystemUppnqliPSCLHPWPLKSI2237-14-15 10:03:00 Test Item Value Reference Range Interpretation Comments Calcium Lvl (test code = Calcium Lvl) 8.7 8.5-10.5 [facility] SystemJfmhbokFOUZFFRCQUYE6790-72-05 10:03:00 Test Item Value Reference Range Interpretation Comments Creatinine Lvl (test code = Creatinine 1.00 0.50-1.40 Lvl) [facility] SystemPleamqnQOPBZMPJTQPV6575-08-80 10:03:00 Test Item Value Reference Range Interpretation Comments Sodium Lvl (test code = Sodium Lvl) 137 135-145 [facility] SystemXsegcwdMEJTAGMSWORR1795-72-29 10:03:00 Test Item Value Reference Range Interpretation Comments Potassium Lvl (test code = Potassium 4.1 3.5-5.1 Lvl) [facility] GrapevineLyfclgaIQFDBHLTKQ2558-78-86 10:03:00 Test Item Value Reference Range Interpretation Comments Plt Morph (test code = Normal (09/12/16 5:03 AM) Plt Morph) [facility] [facility]vineLsemhgxANFBWQQHET1166-52-57 10:03:00 Test Item Value Reference Range Interpretation Comments Bands (test code = 0.0 See_Comment [Automat ed message] The Bands) system which ge nerated this result transmit vy reference range : <=11.0. The reference r gianfranco was not used to interpr et this result as daquan l/abnormal. [facility]vineQgppdgbTXDTRDEJER2170-59-40 10:03:00 Test Item Value Reference Range Interpretation Comments Atypical Lymphs (test code = Atypical 0.0 Lymphs) [facility]vineEowiehiCWJYJQRZJM4246-79-10 10:03:00 Test Item Value Reference Range Interpretation Comments Monocytes (test code = Monocytes) 17.0 2.0-12.0 [facility]vineJuhkdvkPYOUWDSNVY0424-51-98 10:03:00 Test Item Value Reference Range Interpretation Comments RBC Morph (test code = Normal (09/12/16 5:03 AM) RBC Morph) [facility]vineSncrvmbTBLJWDHVGP4765-73-96 10:03:00 Test Item Value Reference Range Interpretation Comments Eosinophils (test code = 1.0 See_Comment [A utomated message] The Eosinophils) system which ge nerated this result tra nsmitted reference range : <=4.0. The reference r gianfranco was not used to int erpret this result as normal/abnormal . [facility]vineXrgjdpyUWFRXFQAHL3424-92-58 10:03:00 Test Item Value Reference Range Interpretation Comments Lymphocytes (test code = Lymphocytes) 27.0 20.0-40.0 [facility]vineNsaefrdUUUTAYLFID5162-49-49 10:03:00 Test Item Value Reference Range Interpretation Comments Segs-Bands # (test code = Segs-Bands #) 4.8 1.5-8.1 [facility]vineYstfzsuIJYNQWLHUP4964-91-64 10:03:00 Test Item Value Reference Range Interpretation Comments Lymphocytes # (test code = Lymphocytes 2.3 1.0-5.5 #) [facility]vineInbnmuuQOQRTLDNQD6715-09-79 10:03:00 Test Item Value Reference Range Interpretation Comments Segs (test code = Segs) 55.0 45.0-75.0 [facility] DallasWcbbmozQFTUVEIGXFMU6736-30-47 10:03:00 Test Item Value Reference Range Interpretation Comments Chloride Lvl (test code = Chloride Lvl) 105 95-109 [facility]MmqhdoaFCJYGZICND6396-07-75 10:03:00 Test Item Value Reference Range Interpretation Comments Eosinophils # (test code 0.1 See_Comment [A utomated message] The = Eosinophils #) system whic h generated this result tra nsmitted reference range : <=0.5. The reference r gianfranco was not used to int erpret this result as normal/abnormal . [facility] CenterGzlieeiIKHXOVNHZZ2215-00-36 10:03:00 Test Item Value Reference Range Interpretation Comments Monocytes # (test code 1.5 See_Comment [Aut omated message] The = Monocytes #) system which generated this result tra nsmitted reference range : <=0.8. The reference r gianfranco was not used to int erpret this result as normal/abnormal . [facility] CenterPjmhedjAQZOCDCYAM2568-71-26 10:03:00 Test Item Value Reference Range Interpretation Comments MPV (test code = MPV) 7.7 7.4-10.4 [facility] CenterOthdydcXRYVEUUPJA8998-67-36 10:03:00 Test Item Value Reference Range Interpretation Comments MCH (test code = MCH) 29.8 pg 27.0-31.0 [facility] CenterDlbeitpZDQPMPHBPS2682-01-20 10:03:00 Test Item Value Reference Range Interpretation Comments MCV (test code = MCV) 88.2 80.0-94.0 [facility] DallasFamjfvwGTCUKYYMXJ1440-33-54 10:03:00 Test Item Value Reference Range Interpretation Comments Platelet (test code = Platelet) 177 133-450 [facility] CenterZructmhFRELNUHJZL8031-17-08 10:03:00 Test Item Value Reference Range Interpretation Comments RDW (test code = RDW) 14.7 11.5-14.5 [facility] CenterMmrmpdyRTOYGHMSSL0684-37-18 10:03:00 Test Item Value Reference Range Interpretation Comments MCHC (test code = MCHC) 33.8 32.0-36.0 [facility] ChildrenMqaoufqWUPDAUORJY7715-08-85 10:03:00 Test Item Value Reference Range Interpretation Comments RBC (test code = RBC) 3.97 4.70-6.10 [facility] CenterApsydjvGTLAIBHDGW3134-62-84 10:03:00 Test Item Value Reference Range Interpretation Comments Hgb (test code = Hgb) 11.8 14.0-18.0 [facility] DallasVvxjezdTHBWXEXKCXOF4484-34-14 10:03:00 Test Item Value Reference Range Interpretation Comments CO2 (test code = CO2) 25 24-32 [facility] DallasKgqshrlFEHDEJCWOQ1278-82-17 10:03:00 Test Item Value Reference Range Interpretation Comments WBC (test code = WBC) 8.7 3.7-10.4 [facility]vineOfggywtXVQHMMSPIA7271-36-60 10:03:00 Test Item Value Reference Range Interpretation Comments Hct (test code = Hct) 35.0 42.0-54.0 [facility]ZvpxqqkFHBZUIPGEEFH4268-99-88 10:03:00 Test Item Value Reference Range Interpretation Comments eGFR (test code = eGFR) 74 [facility] SystemFvmatpiLHLLHDTOJKFV8769-44-49 10:03:00 Test Item Value Reference Range Interpretation Comments BUN (test code = BUN) 16 7-22 [facility] SystemIkrysdeGECFCEMUGXPJ3958-70-02 10:03:00 Test Item Value Reference Range Interpretation Comments Glucose Lvl (test code = Glucose Lvl) 177 70-99 [facility] SystemBggelguMPKICJADOJHE8335-29-79 10:03:00 Test Item Value Reference Range Interpretation Comments Calcium Lvl (test code = Calcium Lvl) 8.7 8.5-10.5 [facility] SystemAhqbjraWAWIEOHHEZSG5193-21-28 10:03:00 Test Item Value Reference Range Interpretation Comments Creatinine Lvl (test code = Creatinine 1.00 0.50-1.40 Lvl) [facility] SystemOqujtpbGNMSGDCFDOFP0639-11-62 10:03:00 Test Item Value Reference Range Interpretation Comments Sodium Lvl (test code = Sodium Lvl) 137 135-145 [facility]vineArtsvltUVGFQAHUNH0001-54-35 10:03:00 Test Item Value Reference Range Interpretation Comments Plt Morph (test code = Normal (09/12/16 5:03 AM) Plt Morph) [facility]vineHbybpgmNJJDIPTXHX7492-02-42 10:03:00 Test Item Value Reference Range Interpretation Comments Bands (test code = 0.0 See_Comment [Automat ed message] The Bands) system which ge nerated this result transmit vy reference range : <=11.0. The reference r gianfranco was not used to interpr et this result as daquan l/abnormal. [facility]vineScqqlwwZVNGBSQPWC3372-16-92 10:03:00 Test Item Value Reference Range Interpretation Comments Atypical Lymphs (test code = Atypical 0.0 Lymphs) [facility]vineBttyhteIFOLWTXIIN1785-37-08 10:03:00 Test Item Value Reference Range Interpretation Comments Monocytes (test code = Monocytes) 17.0 2.0-12.0 [facility]vineHnlzzyxLFRQGPJLVU5260-62-34 10:03:00 Test Item Value Reference Range Interpretation Comments RBC Morph (test code = Normal (09/12/16 5:03 AM) RBC Morph) [facility]vineNfnkyjbDJNNBYDITJ3992-50-63 10:03:00 Test Item Value Reference Range Interpretation Comments Eosinophils (test code = 1.0 See_Comment [A utomated message] The Eosinophils) system which ge nerated this result tra nsmitted reference range : <=4.0. The reference r gianfranco was not used to int erpret this result as normal/abnormal . [facility]vineDhhehwgEKJZQGSTJW1088-25-20 10:03:00 Test Item Value Reference Range Interpretation Comments Lymphocytes (test code = Lymphocytes) 27.0 20.0-40.0 [facility]vineFmnpgwhHHHDXQVRSS3384-42-48 10:03:00 Test Item Value Reference Range Interpretation Comments Segs-Bands # (test code = Segs-Bands #) 4.8 1.5-8.1 [facility]vineYwhanxrBGTITBJIUO6314-64-43 10:03:00 Test Item Value Reference Range Interpretation Comments Lymphocytes # (test code = Lymphocytes 2.3 1.0-5.5 #) [facility]vineHaicyfdKMMPWZSNDD0755-77-99 10:03:00 Test Item Value Reference Range Interpretation Comments Segs (test code = Segs) 55.0 45.0-75.0 [facility]vineOabecomJBQPXUAOLU0164-07-59 10:03:00 Test Item Value Reference Range Interpretation Comments Eosinophils # (test code 0.1 See_Comment [A utomated message] The = Eosinophils #) system whic h generated this result tra nsmitted reference range : <=0.5. The reference r gianfranco was not used to int erpret this result as normal/abnormal . [facility]vineEsamdewJFOTLMUTOL3737-55-97 10:03:00 Test Item Value Reference Range Interpretation Comments Monocytes # (test code 1.5 See_Comment [Aut omated message] The = Monocytes #) system which generated this result tra nsmitted reference range : <=0.8. The reference r gianfranco was not used to int erpret this result as normal/abnormal . [facility]vineEivgagxDQCAILZWBR9552-25-04 10:03:00 Test Item Value Reference Range Interpretation Comments MPV (test code = MPV) 7.7 7.4-10.4 [facility] CenterAjkizasGJAGNQELKG5692-15-95 10:03:00 Test Item Value Reference Range Interpretation Comments MCH (test code = MCH) 29.8 pg 27.0-31.0 [facility] CenterItylksmHVZFKZYKCV0643-34-19 10:03:00 Test Item Value Reference Range Interpretation Comments MCV (test code = MCV) 88.2 80.0-94.0 [facility] CenterBkwdxhhUWBSFRKTCB3934-22-43 10:03:00 Test Item Value Reference Range Interpretation Comments Platelet (test code = Platelet) 177 133-450 [facility] CenterYbjufudHWTPIUKFVG0999-52-98 10:03:00 Test Item Value Reference Range Interpretation Comments RDW (test code = RDW) 14.7 11.5-14.5 [facility] CenterAvtlzcpFVOYYKGLVE9493-62-63 10:03:00 Test Item Value Reference Range Interpretation Comments MCHC (test code = MCHC) 33.8 32.0-36.0 [facility] CenterXwyasavCQTXGCNLYO7659-57-11 10:03:00 Test Item Value Reference Range Interpretation Comments RBC (test code = RBC) 3.97 4.70-6.10 [facility] ChildrenIvhvsvdANBOSAGACX6471-22-67 10:03:00 Test Item Value Reference Range Interpretation Comments Hgb (test code = Hgb) 11.8 14.0-18.0 [facility] CenterLtpnwplUJWAFFCUFR5771-58-99 10:03:00 Test Item Value Reference Range Interpretation Comments WBC (test code = WBC) 8.7 3.7-10.4 [facility] CenterGlbwytsAKWMNORJYB5186-96-15 10:03:00 Test Item Value Reference Range Interpretation Comments Hct (test code = Hct) 35.0 42.0-54.0 [facility] ChildrenCHEM GVEEM1892-63-77 10:03:00 Test Item Value Reference Range Interpretation Comments Phosphorus (test code = Phosphorus) 3.1 2.5-4.5 [facility] ChildrenCHEM CIBUA6957-20-06 10:03:00 Test Item Value Reference Range Interpretation Comments Magnesium Lvl (test code = Magnesium 2.6 1.8-2.4 Lvl) [facility] DallasCcbrwuoZBJXAHYNKKHG9084-49-98 10:03:00 Test Item Value Reference Range Interpretation Comments AGAP (test code = AGAP) 11.1 10.0-20.0 [facility] SystemBeeteqaNPOZVHPXTBBR6708-78-26 10:03:00 Test Item Value Reference Range Interpretation Comments Potassium Lvl (test code = Potassium 4.1 3.5-5.1 Lvl) [facility] SystemTjmqgrpZDYGRAWWWNJT6976-05-63 10:03:00 Test Item Value Reference Range Interpretation Comments Chloride Lvl (test code = Chloride Lvl) 105 95-109 [facility] SystemQgccmbfRAJDCNMNNJZB7714-85-32 10:03:00 Test Item Value Reference Range Interpretation Comments CO2 (test code = CO2) 25 24-32 [facility] SystemCfnqstiDDQAMYEVERRI1584-98-65 10:03:00 Test Item Value Reference Range Interpretation Comments eGFR (test code = eGFR) 74 [facility] SystemFyqhnbnDMGRWOYZJNON0578-06-18 10:03:00 Test Item Value Reference Range Interpretation Comments BUN (test code = BUN) 16 7-22 [facility] SystemBqxuqgqBDHOGTWEIIEN6659-73-72 10:03:00 Test Item Value Reference Range Interpretation Comments Glucose Lvl (test code = Glucose Lvl) 177 70-99 [facility] SystemNjlxwupURJCHHUURBRQ3383-78-10 10:03:00 Test Item Value Reference Range Interpretation Comments Calcium Lvl (test code = Calcium Lvl) 8.7 8.5-10.5 [facility] SystemGplmgfkVRXQQWLVJDRO4391-36-28 10:03:00 Test Item Value Reference Range Interpretation Comments Creatinine Lvl (test code = Creatinine 1.00 0.50-1.40 Lvl) [facility] SystemPsdvrfgBNAVFKNQBTQF9272-58-00 10:03:00 Test Item Value Reference Range Interpretation Comments Sodium Lvl (test code = Sodium Lvl) 137 135-145 [facility]vineEgoplmjVUVMTAPDFO1399-80-37 10:03:00 Test Item Value Reference Range Interpretation Comments Plt Morph (test code = Normal (09/12/16 5:03 AM) Plt Morph) [facility]vineUyeyyegEJIFPRKBZG7926-98-14 10:03:00 Test Item Value Reference Range Interpretation Comments Bands (test code = 0.0 See_Comment [Automat ed message] The Bands) system which ge nerated this result transmit vy reference range : <=11.0. The reference r gianfranco was not used to interpr et this result as daquan l/abnormal. [facility]vineVhmdggsLNHYPOXFUC7275-44-27 10:03:00 Test Item Value Reference Range Interpretation Comments Atypical Lymphs (test code = Atypical 0.0 Lymphs) [facility]vineNqulnmnZIXHZBTHXI0183-04-61 10:03:00 Test Item Value Reference Range Interpretation Comments Monocytes (test code = Monocytes) 17.0 2.0-12.0 [facility]vineJwquktrWZKTYPWWNU1261-16-69 10:03:00 Test Item Value Reference Range Interpretation Comments RBC Morph (test code = Normal (09/12/16 5:03 AM) RBC Morph) [facility]vineLseuxozRQDMCDKGQT3490-59-27 10:03:00 Test Item Value Reference Range Interpretation Comments Eosinophils (test code = 1.0 See_Comment [A utomated message] The Eosinophils) system which ge nerated this result tra nsmitted reference range : <=4.0. The reference r gianfranco was not used to int erpret this result as normal/abnormal . [facility]vinePdqsgdvEJHSJUYDZM9279-02-88 10:03:00 Test Item Value Reference Range Interpretation Comments Lymphocytes (test code = Lymphocytes) 27.0 20.0-40.0 [facility]vineHurkeatOJYPIWCYQZ5991-35-29 10:03:00 Test Item Value Reference Range Interpretation Comments Segs-Bands # (test code = Segs-Bands #) 4.8 1.5-8.1 [facility]vineLktrxnnKLXXWEFTSG1633-58-54 10:03:00 Test Item Value Reference Range Interpretation Comments Lymphocytes # (test code = Lymphocytes 2.3 1.0-5.5 #) [facility]vineXqzpvedWTLLHLTFYL9509-54-50 10:03:00 Test Item Value Reference Range Interpretation Comments Segs (test code = Segs) 55.0 45.0-75.0 [facility]vineVfmdyvnJCYWNOTUUO9333-13-11 10:03:00 Test Item Value Reference Range Interpretation Comments Eosinophils # (test code 0.1 See_Comment [A utomated message] The = Eosinophils #) system whic h generated this result tra nsmitted reference range : <=0.5. The reference r gianfranco was not used to int erpret this result as normal/abnormal . [facility]vineCeapepnGGEUNEOJVX9946-28-15 10:03:00 Test Item Value Reference Range Interpretation Comments Monocytes # (test code 1.5 See_Comment [Aut omated message] The = Monocytes #) system which generated this result tra nsmitted reference range : <=0.8. The reference r gianfranco was not used to int erpret this result as normal/abnormal . [facility]vineZvqnkfrHHPNOBSHYS1494-49-61 10:03:00 Test Item Value Reference Range Interpretation Comments MPV (test code = MPV) 7.7 7.4-10.4 [facility]vineUfmfesqKZXJXGFCTJ9362-60-17 10:03:00 Test Item Value Reference Range Interpretation Comments MCH (test code = MCH) 29.8 pg 27.0-31.0 [facility]vineAaeswztQEYJMJSVAZ5257-44-23 10:03:00 Test Item Value Reference Range Interpretation Comments MCV (test code = MCV) 88.2 80.0-94.0 [facility]vineIjhnkhwWFNAZLBPBX0106-31-00 10:03:00 Test Item Value Reference Range Interpretation Comments Platelet (test code = Platelet) 177 133-450 [facility]vineKippajzGSTOBBWMNQ2340-35-01 10:03:00 Test Item Value Reference Range Interpretation Comments RDW (test code = RDW) 14.7 11.5-14.5 [facility]vineAinirwdDHDSVYPSBF6571-47-70 10:03:00 Test Item Value Reference Range Interpretation Comments MCHC (test code = MCHC) 33.8 32.0-36.0 [facility]vineNhqoeaiWVOHLZYXTB1195-26-35 10:03:00 Test Item Value Reference Range Interpretation Comments RBC (test code = RBC) 3.97 4.70-6.10 [facility]vineOgsgoaxCUBWTICRCI0364-47-04 10:03:00 Test Item Value Reference Range Interpretation Comments Hgb (test code = Hgb) 11.8 14.0-18.0 [facility]vineYmrabeeWIWWXBYPPO0102-25-73 10:03:00 Test Item Value Reference Range Interpretation Comments WBC (test code = WBC) 8.7 3.7-10.4 [facility]vineSxxgcpzJHONMJOJTK7574-82-52 10:03:00 Test Item Value Reference Range Interpretation Comments Hct (test code = Hct) 35.0 42.0-54.0 [facility] ChildrenCHEM FUXCN6531-61-70 10:03:00 Test Item Value Reference Range Interpretation Comments Phosphorus (test code = Phosphorus) 3.1 2.5-4.5 [facility] ChildrenCHEM DBFZX6277-98-09 10:03:00 Test Item Value Reference Range Interpretation Comments Magnesium Lvl (test code = Magnesium 2.6 1.8-2.4 Lvl) [facility]CqfwqhaSVTXUDYXRYRI4255-32-06 10:03:00 Test Item Value Reference Range Interpretation Comments AGAP (test code = AGAP) 11.1 10.0-20.0 [facility] SystemMtsypnuXGYORXAFPBAA0554-52-06 10:03:00 Test Item Value Reference Range Interpretation Comments Potassium Lvl (test code = Potassium 4.1 3.5-5.1 Lvl) [facility] SystemGsgscemCSGLLTHIHVAE2248-41-96 10:03:00 Test Item Value Reference Range Interpretation Comments Chloride Lvl (test code = Chloride Lvl) 105 95-109 [facility] SystemVleeocuEZQHDJSNCTJR9393-54-17 10:03:00 Test Item Value Reference Range Interpretation Comments CO2 (test code = CO2) 25 24-32 [facility] SystemQrubqfcNPUDGRSDVJZG3918-35-99 10:03:00 Test Item Value Reference Range Interpretation Comments eGFR (test code = eGFR) 74 [facility] SystemQvlammyJBOSDWVEEVEF7316-79-46 10:03:00 Test Item Value Reference Range Interpretation Comments BUN (test code = BUN) 16 7-22 [facility] SystemChfogzgFGVLYILNELEB2578-57-78 10:03:00 Test Item Value Reference Range Interpretation Comments Glucose Lvl (test code = Glucose Lvl) 177 70-99 [facility] SystemPpcbqopUAVDULJFUFJI5148-87-15 10:03:00 Test Item Value Reference Range Interpretation Comments Calcium Lvl (test code = Calcium Lvl) 8.7 8.5-10.5 [facility] SystemKbfijgrCZBJVJNDRVWZ2916-08-74 10:03:00 Test Item Value Reference Range Interpretation Comments Creatinine Lvl (test code = Creatinine 1.00 0.50-1.40 Lvl) [facility] SystemGiotfanAKJUTOIYPLTX6562-47-55 10:03:00 Test Item Value Reference Range Interpretation Comments Sodium Lvl (test code = Sodium Lvl) 137 135-145 [facility]vineFuwpwkgNARBPYTWEL5494-60-24 10:03:00 Test Item Value Reference Range Interpretation Comments Plt Morph (test code = Normal (09/12/16 5:03 AM) Plt Morph) [facility]vineYgrjvowFQUQZQSYIK5858-15-98 10:03:00 Test Item Value Reference Range Interpretation Comments Bands (test code = 0.0 See_Comment [Automat ed message] The Bands) system which ge nerated this result transmit vy reference range : <=11.0. The reference r gianfranco was not used to interpr et this result as daquan l/abnormal. [facility]vineWplgkkuOOJOWZRPSA3879-87-84 10:03:00 Test Item Value Reference Range Interpretation Comments Atypical Lymphs (test code = Atypical 0.0 Lymphs) [facility]vineUpmisyaBFECAACTMV3977-77-86 10:03:00 Test Item Value Reference Range Interpretation Comments Monocytes (test code = Monocytes) 17.0 2.0-12.0 [facility]vineRujbvutSRCAWCAGQX9598-11-04 10:03:00 Test Item Value Reference Range Interpretation Comments RBC Morph (test code = Normal (09/12/16 5:03 AM) RBC Morph) [facility]vineRbjbvpwUPRDINPJHG9637-06-73 10:03:00 Test Item Value Reference Range Interpretation Comments Eosinophils (test code = 1.0 See_Comment [A utomated message] The Eosinophils) system which ge nerated this result tra nsmitted reference range : <=4.0. The reference r gianfranco was not used to int erpret this result as normal/abnormal . [facility]vineRqbuarbSAUBITUNWU9241-24-46 10:03:00 Test Item Value Reference Range Interpretation Comments Lymphocytes (test code = Lymphocytes) 27.0 20.0-40.0 [facility]vineUbcnkltPBIERISUXD4136-31-82 10:03:00 Test Item Value Reference Range Interpretation Comments Segs-Bands # (test code = Segs-Bands #) 4.8 1.5-8.1 [facility]vineDvkvxwdBRYPSOTFAH0335-10-74 10:03:00 Test Item Value Reference Range Interpretation Comments Lymphocytes # (test code = Lymphocytes 2.3 1.0-5.5 #) [facility]vineRjrxtruVPYFTBVKLC0846-40-17 10:03:00 Test Item Value Reference Range Interpretation Comments Segs (test code = Segs) 55.0 45.0-75.0 [facility]vineMfludgqNXVOJLOEQM1177-50-97 10:03:00 Test Item Value Reference Range Interpretation Comments Eosinophils # (test code 0.1 See_Comment [A utomated message] The = Eosinophils #) system whic h generated this result tra nsmitted reference range : <=0.5. The reference r gianfranco was not used to int erpret this result as normal/abnormal . [facility]vineHjpubhmWUYBMAANFI9350-77-21 10:03:00 Test Item Value Reference Range Interpretation Comments Monocytes # (test code 1.5 See_Comment [Aut omated message] The = Monocytes #) system which generated this result tra nsmitted reference range : <=0.8. The reference r gianfranco was not used to int erpret this result as normal/abnormal . [facility]rapevineZqrzltaWVVGVRYCKX2235-50-44 10:03:00 Test Item Value Reference Range Interpretation Comments MPV (test code = MPV) 7.7 7.4-10.4 [facility]rapevineNwhduwzUBKLDBUCYR1854-77-44 10:03:00 Test Item Value Reference Range Interpretation Comments MCH (test code = MCH) 29.8 pg 27.0-31.0 [facility]vinePghvjwmXQCMSCZWIW2950-55-40 10:03:00 Test Item Value Reference Range Interpretation Comments MCV (test code = MCV) 88.2 80.0-94.0 [facility]vineMpvixjuVYIWGXVHFO5362-31-15 10:03:00 Test Item Value Reference Range Interpretation Comments Platelet (test code = Platelet) 177 133-450 [facility] GrapevineIuecrezCJFLNECRTU2823-61-83 10:03:00 Test Item Value Reference Range Interpretation Comments RDW (test code = RDW) 14.7 11.5-14.5 [facility] ChildrenPzsvtwtYBZMRHOYRS4844-78-32 10:03:00 Test Item Value Reference Range Interpretation Comments MCHC (test code = MCHC) 33.8 32.0-36.0 [facility] ChildrenFplnftmGZLESERGLS8526-86-20 10:03:00 Test Item Value Reference Range Interpretation Comments RBC (test code = RBC) 3.97 4.70-6.10 [facility] ChildrenMqtstxpFOKQMZDZXE1381-21-53 10:03:00 Test Item Value Reference Range Interpretation Comments Hgb (test code = Hgb) 11.8 14.0-18.0 [facility] ChildrenOtivnokPKSPKSHTIP7857-52-28 10:03:00 Test Item Value Reference Range Interpretation Comments WBC (test code = WBC) 8.7 3.7-10.4 [facility] ChildrenRxpspmoCFNZXMHFCW0064-75-09 10:03:00 Test Item Value Reference Range Interpretation Comments Hct (test code = Hct) 35.0 42.0-54.0 [facility]2017-08-05 10:03:00 Test Item Value Reference Range Interpretation Comments Phosphorus (test code = Phosphorus) 3.1 2.5-4.5 [facility] ChildrenCHEM UNUWH7823-85-32 10:03:00 Test Item Value Reference Range Interpretation Comments Magnesium Lvl (test code = Magnesium 2.6 1.8-2.4 Lvl) [facility]FoslaktWTWUDBVMUJVU9658-36-38 10:03:00 Test Item Value Reference Range Interpretation Comments AGAP (test code = AGAP) 11.1 10.0-20.0 [facility] SystemIojdbpvGSIKNMQZYXZX4644-85-92 10:03:00 Test Item Value Reference Range Interpretation Comments Potassium Lvl (test code = Potassium 4.1 3.5-5.1 Lvl) [facility] SystemEpsgjjyXGYDUPMRSNJJ8645-78-72 10:03:00 Test Item Value Reference Range Interpretation Comments Chloride Lvl (test code = Chloride Lvl) 105 95-109 [facility] SystemMchrdasUVXNPGNVSHQU6081-99-31 10:03:00 Test Item Value Reference Range Interpretation Comments CO2 (test code = CO2) 25 24-32 [facility] SystemAsrewcaYLGDZPHJJLCV6385-59-60 10:03:00 Test Item Value Reference Range Interpretation Comments eGFR (test code = eGFR) 74 [facility] SystemGogwmddKUMYEXBPWQZC4187-09-80 10:03:00 Test Item Value Reference Range Interpretation Comments BUN (test code = BUN) 16 7-22 [facility] SystemQefntvnJHZBIBHINVTS0098-72-22 10:03:00 Test Item Value Reference Range Interpretation Comments Glucose Lvl (test code = Glucose Lvl) 177 70-99 [facility] SystemSxegsklROBWYNFJRINX6386-79-99 10:03:00 Test Item Value Reference Range Interpretation Comments Calcium Lvl (test code = Calcium Lvl) 8.7 8.5-10.5 [facility] SystemIbitbdvIKFQXEMRJBOJ1535-44-33 10:03:00 Test Item Value Reference Range Interpretation Comments Creatinine Lvl (test code = Creatinine 1.00 0.50-1.40 Lvl) [facility] SystemIovspfyFYOBOFILIDBE2023-53-12 10:03:00 Test Item Value Reference Range Interpretation Comments Sodium Lvl (test code = Sodium Lvl) 137 135-145 [facility]vinePhlqggeBIFNUQSDFG2366-06-85 10:03:00 Test Item Value Reference Range Interpretation Comments Plt Morph (test code = Normal (09/12/16 5:03 AM) Plt Morph) [facility]rapevineNwnlplfOZBMHMFXMD0043-68-81 10:03:00 Test Item Value Reference Range Interpretation Comments Bands (test code = 0.0 See_Comment [Automat ed message] The Bands) system which ge nerated this result transmit vy reference range : <=11.0. The reference r gianfranco was not used to interpr et this result as daquan l/abnormal. [facility]rapevineXcbxjqsIDTELNJPNR5173-91-28 10:03:00 Test Item Value Reference Range Interpretation Comments Atypical Lymphs (test code = Atypical 0.0 Lymphs) [facility]vineHoqsmpkUECDJVXTNG5820-30-01 10:03:00 Test Item Value Reference Range Interpretation Comments Monocytes (test code = Monocytes) 17.0 2.0-12.0 [facility]rapevineYiewzzbTTQTKMFJCY3975-71-42 10:03:00 Test Item Value Reference Range Interpretation Comments RBC Morph (test code = Normal (09/12/16 5:03 AM) RBC Morph) [facility]rapevineLrpihbjPYYLDCVIZZ4335-81-35 10:03:00 Test Item Value Reference Range Interpretation Comments Eosinophils (test code = 1.0 See_Comment [A utomated message] The Eosinophils) system which ge nerated this result tra nsmitted reference range : <=4.0. The reference r gianfranco was not used to int erpret this result as normal/abnormal . [facility]rapevineCrhooyoVOBTGBPEZS2608-43-79 10:03:00 Test Item Value Reference Range Interpretation Comments Lymphocytes (test code = Lymphocytes) 27.0 20.0-40.0 [facility]rapevineDsjydeaVJBRACAKLS2409-08-09 10:03:00 Test Item Value Reference Range Interpretation Comments Segs-Bands # (test code = Segs-Bands #) 4.8 1.5-8.1 [facility]vinePkmslcrJJGTPZMGTN1238-84-81 10:03:00 Test Item Value Reference Range Interpretation Comments Lymphocytes # (test code = Lymphocytes 2.3 1.0-5.5 #) [facility]rapevineDmxdtuhVHIBVQNGCI9722-45-67 10:03:00 Test Item Value Reference Range Interpretation Comments Segs (test code = Segs) 55.0 45.0-75.0 [facility]rapevineMpgwlzpCHQSLGJEQX1534-49-44 10:03:00 Test Item Value Reference Range Interpretation Comments Eosinophils # (test code 0.1 See_Comment [A utomated message] The = Eosinophils #) system whic h generated this result tra nsmitted reference range : <=0.5. The reference r gianfranco was not used to int erpret this result as normal/abnormal . [facility] GrapevineCimmauxLLXJRRVLRX1638-39-94 10:03:00 Test Item Value Reference Range Interpretation Comments Monocytes # (test code 1.5 See_Comment [Aut omated message] The = Monocytes #) system which generated this result tra nsmitted reference range : <=0.8. The reference r gianfranco was not used to int erpret this result as normal/abnormal . [facility]rapevineXssskqxDEKXNKRNQJ3038-78-04 10:03:00 Test Item Value Reference Range Interpretation Comments MPV (test code = MPV) 7.7 7.4-10.4 [facility]rapevineAjnhjrcUADPMUVEMT1101-62-96 10:03:00 Test Item Value Reference Range Interpretation Comments MCH (test code = MCH) 29.8 pg 27.0-31.0 [facility] GrapevineUgoxleuDICSKZRITO7170-84-59 10:03:00 Test Item Value Reference Range Interpretation Comments MCV (test code = MCV) 88.2 80.0-94.0 [facility]rapevineMglxkxlXNWUIBILTM7296-90-63 10:03:00 Test Item Value Reference Range Interpretation Comments Platelet (test code = Platelet) 177 133-450 [facility] GrapevineIzcjlbiAJSBLJYJND1054-83-87 10:03:00 Test Item Value Reference Range Interpretation Comments RDW (test code = RDW) 14.7 11.5-14.5 [facility]rapevineMyhsofvOYNQXTAHOJ3303-65-67 10:03:00 Test Item Value Reference Range Interpretation Comments MCHC (test code = MCHC) 33.8 32.0-36.0 [facility]rapevineEjlnnthRFUEIAXWHY1291-28-17 10:03:00 Test Item Value Reference Range Interpretation Comments RBC (test code = RBC) 3.97 4.70-6.10 [facility]rapevineZoawwcuWNGJFVTYKR9263-10-82 10:03:00 Test Item Value Reference Range Interpretation Comments Hgb (test code = Hgb) 11.8 14.0-18.0 [facility]rapevinePvuohjhAIOQOIOXUH0193-26-82 10:03:00 Test Item Value Reference Range Interpretation Comments WBC (test code = WBC) 8.7 3.7-10.4 [facility]rapevineWtsprwbJEIQZYZZPV4443-67-62 10:03:00 Test Item Value Reference Range Interpretation Comments Hct (test code = Hct) 35.0 42.0-54.0 [facility]2017-08-05 10:03:00 Test Item Value Reference Range Interpretation Comments Phosphorus (test code = Phosphorus) 3.1 2.5-4.5 [facility] NJLPE3699-81-16 10:03:00 Test Item Value Reference Range Interpretation Comments Magnesium Lvl (test code = Magnesium 2.6 1.8-2.4 Lvl) [facility] DallasZguwnahZLYBDLMARUDB2980-50-73 10:03:00 Test Item Value Reference Range Interpretation Comments AGAP (test code = AGAP) 11.1 10.0-20.0 [facility]2017-08-04 23:45:00 Test Item Value Reference Range Interpretation Comments Chloride Lvl (test code = Chloride Lvl) 104 95-109 [facility]2017-08-04 23:45:00 Test Item Value Reference Range Interpretation Comments Potassium Lvl (test code = Potassium 3.8 3.5-5.1 Lvl) [facility]2017-08-04 23:45:00 Test Item Value Reference Range Interpretation Comments Sodium Lvl (test code = Sodium Lvl) 140 135-145 [facility]2017-08-04 23:45:00 Test Item Value Reference Range Interpretation Comments Creatinine Lvl (test code = Creatinine 1.07 0.50-1.40 Lvl) [facility]2017-08-04 23:45:00 Test Item Value Reference Range Interpretation Comments BUN (test code = BUN) 13 7-22 [facility]2017-08-04 23:45:00 Test Item Value Reference Range Interpretation Comments Glucose Lvl (test code = Glucose Lvl) 146 70-99 [facility]2017-08-04 23:45:00 Test Item Value Reference Range Interpretation Comments eGFR (test code = eGFR) 68 [facility]2017-08-04 23:45:00 Test Item Value Reference Range Interpretation Comments AGAP (test code = AGAP) 13.8 10.0-20.0 [facility]2017-08-04 23:45:00 Test Item Value Reference Range Interpretation Comments Calcium Lvl (test code = Calcium Lvl) 9.0 8.5-10.5 [facility]2017-08-04 23:45:00 Test Item Value Reference Range Interpretation Comments CO2 (test code = CO2) 26 24-32 [facility]2017-08-04 23:45:00 Test Item Value Reference Range Interpretation Comments eGFR (test code = eGFR) 68 [facility]2017-08-04 23:45:00 Test Item Value Reference Range Interpretation Comments AGAP (test code = AGAP) 13.8 10.0-20.0 [facility]2017-08-04 23:45:00 Test Item Value Reference Range Interpretation Comments Calcium Lvl (test code = Calcium Lvl) 9.0 8.5-10.5 [facility]2017-08-04 23:45:00 Test Item Value Reference Range Interpretation Comments CO2 (test code = CO2) -32 [facility]2017-08-04 23:45:00 Test Item Value Reference Range Interpretation Comments Chloride Lvl (test code = Chloride Lvl) 104 95-109 [facility]2017-08-04 23:45:00 Test Item Value Reference Range Interpretation Comments Potassium Lvl (test code = Potassium 3.8 3.5-5.1 Lvl) [facility]2017-08-04 23:45:00 Test Item Value Reference Range Interpretation Comments Sodium Lvl (test code = Sodium Lvl) 140 135-145 [facility]2017-08-04 23:45:00 Test Item Value Reference Range Interpretation Comments Creatinine Lvl (test code = Creatinine 1.07 0.50-1.40 Lvl) [facility]2017-08-04 23:45:00 Test Item Value Reference Range Interpretation Comments BUN (test code = BUN) 13 7-22 [facility]2017-08-04 23:45:00 Test Item Value Reference Range Interpretation Comments Glucose Lvl (test code = Glucose Lvl) 146 70-99 [facility]2017-08-04 23:45:00 Test Item Value Reference Range Interpretation Comments eGFR (test code = eGFR) 68 [facility]2017-08-04 23:45:00 Test Item Value Reference Range Interpretation Comments AGAP (test code = AGAP) 13.8 10.0-20.0 [facility]2017-08-04 23:45:00 Test Item Value Reference Range Interpretation Comments Calcium Lvl (test code = Calcium Lvl) 9.0 8.5-10.5 [facility]2017-08-04 23:45:00 Test Item Value Reference Range Interpretation Comments CO2 (test code = CO2) 26 24-32 [facility]2017-08-04 23:45:00 Test Item Value Reference Range Interpretation Comments Chloride Lvl (test code = Chloride Lvl) 104 95-109 [facility]2017-08-04 23:45:00 Test Item Value Reference Range Interpretation Comments Potassium Lvl (test code = Potassium 3.8 3.5-5.1 Lvl) [facility]2017-08-04 23:45:00 Test Item Value Reference Range Interpretation Comments Sodium Lvl (test code = Sodium Lvl) 140 135-145 [facility] DallasViryd TechnologiesNOVANT HEALTH PENDER MEDICAL CENTERMARDY9079-98-66 23:45:00 Test Item Value Reference Range Interpretation Comments Creatinine Lvl (test code = Creatinine 1.07 0.50-1.40 Lvl) [facility]2017-08-04 23:45:00 Test Item Value Reference Range Interpretation Comments BUN (test code = BUN) 13 7-22 [facility]2017-08-04 23:45:00 Test Item Value Reference Range Interpretation Comments Glucose Lvl (test code = Glucose Lvl) 146 70-99 [facility]2017-08-04 23:45:00 Test Item Value Reference Range Interpretation Comments eGFR (test code = eGFR) 68 [facility]2017-08-04 23:45:00 Test Item Value Reference Range Interpretation Comments AGAP (test code = AGAP) 13.8 10.0-20.0 [facility]2017-08-04 23:45:00 Test Item Value Reference Range Interpretation Comments Calcium Lvl (test code = Calcium Lvl) 9.0 8.5-10.5 [facility]2017-08-04 23:45:00 Test Item Value Reference Range Interpretation Comments CO2 (test code = CO2) 26 24-32 [facility]2017-08-04 23:45:00 Test Item Value Reference Range Interpretation Comments Chloride Lvl (test code = Chloride Lvl) 104 95-109 [facility]2017-08-04 23:45:00 Test Item Value Reference Range Interpretation Comments Potassium Lvl (test code = Potassium 3.8 3.5-5.1 Lvl) [facility]2017-08-04 23:45:00 Test Item Value Reference Range Interpretation Comments Sodium Lvl (test code = Sodium Lvl) 140 135-145 [facility]2017-08-04 23:45:00 Test Item Value Reference Range Interpretation Comments Creatinine Lvl (test code = Creatinine 1.07 0.50-1.40 Lvl) [facility]2017-08-04 23:45:00 Test Item Value Reference Range Interpretation Comments BUN (test code = BUN) 13 7-22 [facility]2017-08-04 23:45:00 Test Item Value Reference Range Interpretation Comments Glucose Lvl (test code = Glucose Lvl) 146 70-99 [facility]2017-08-04 23:45:00 Test Item Value Reference Range Interpretation Comments eGFR (test code = eGFR) 68 [facility]2017-08-04 23:45:00 Test Item Value Reference Range Interpretation Comments AGAP (test code = AGAP) 13.8 10.0-20.0 [facility]2017-08-04 23:45:00 Test Item Value Reference Range Interpretation Comments Calcium Lvl (test code = Calcium Lvl) 9.0 8.5-10.5 [facility]2017-08-04 23:45:00 Test Item Value Reference Range Interpretation Comments CO2 (test code = CO2) 26 24-32 [facility]2017-08-04 23:45:00 Test Item Value Reference Range Interpretation Comments Chloride Lvl (test code = Chloride Lvl) 104 95-109 [facility]2017-08-04 23:45:00 Test Item Value Reference Range Interpretation Comments Potassium Lvl (test code = Potassium 3.8 3.5-5.1 Lvl) [facility]2017-08-04 23:45:00 Test Item Value Reference Range Interpretation Comments Sodium Lvl (test code = Sodium Lvl) 140 135-145 [facility]2017-08-04 23:45:00 Test Item Value Reference Range Interpretation Comments Creatinine Lvl (test code = Creatinine 1.07 0.50-1.40 Lvl) [facility]2017-08-04 23:45:00 Test Item Value Reference Range Interpretation Comments BUN (test code = BUN) 13 - [facility]2017-08-04 23:45:00 Test Item Value Reference Range Interpretation Comments Glucose Lvl (test code = Glucose Lvl) 146 70-99 [facility]2017-08-04 23:45:00 Test Item Value Reference Range Interpretation Comments eGFR (test code = eGFR) 68 [facility]2017-08-04 23:45:00 Test Item Value Reference Range Interpretation Comments AGAP (test code = AGAP) 13.8 10.0-20.0 [facility]2017-08-04 23:45:00 Test Item Value Reference Range Interpretation Comments Calcium Lvl (test code = Calcium Lvl) 9.0 8.5-10.5 [facility]2017-08-04 23:45:00 Test Item Value Reference Range Interpretation Comments CO2 (test code = CO2) 26 24-32 [facility]2017-08-04 23:45:00 Test Item Value Reference Range Interpretation Comments Chloride Lvl (test code = Chloride Lvl) 104 95-109 [facility]2017-08-04 23:45:00 Test Item Value Reference Range Interpretation Comments Potassium Lvl (test code = Potassium 3.8 3.5-5.1 Lvl) [facility]2017-08-04 23:45:00 Test Item Value Reference Range Interpretation Comments Sodium Lvl (test code = Sodium Lvl) 140 135-145 [facility]2017-08-04 23:45:00 Test Item Value Reference Range Interpretation Comments Creatinine Lvl (test code = Creatinine 1.07 0.50-1.40 Lvl) [facility]2017-08-04 23:45:00 Test Item Value Reference Range Interpretation Comments BUN (test code = BUN) 13 - [facility]2017-08-04 23:45:00 Test Item Value Reference Range Interpretation Comments Glucose Lvl (test code = Glucose Lvl) 146 70-99 [facility]2017-08-04 23:45:00 Test Item Value Reference Range Interpretation Comments eGFR (test code = eGFR) 68 [facility]2017-08-04 23:45:00 Test Item Value Reference Range Interpretation Comments AGAP (test code = AGAP) 13.8 10.0-20.0 [facility]2017-08-04 23:45:00 Test Item Value Reference Range Interpretation Comments Calcium Lvl (test code = Calcium Lvl) 9.0 8.5-10.5 [facility]2017-08-04 23:45:00 Test Item Value Reference Range Interpretation Comments CO2 (test code = CO2) 26 24-32 [facility]2017-08-04 23:45:00 Test Item Value Reference Range Interpretation Comments Chloride Lvl (test code = Chloride Lvl) 104 95-109 [facility]2017-08-04 23:45:00 Test Item Value Reference Range Interpretation Comments Potassium Lvl (test code = Potassium 3.8 3.5-5.1 Lvl) [facility]2017-08-04 23:45:00 Test Item Value Reference Range Interpretation Comments Sodium Lvl (test code = Sodium Lvl) 140 135-145 [facility]2017-08-04 23:45:00 Test Item Value Reference Range Interpretation Comments Creatinine Lvl (test code = Creatinine 1.07 0.50-1.40 Lvl) [facility]2017-08-04 23:45:00 Test Item Value Reference Range Interpretation Comments BUN (test code = BUN) 13 7-22 [facility]2017-08-04 23:45:00 Test Item Value Reference Range Interpretation Comments Glucose Lvl (test code = Glucose Lvl) 146 70-99 [facility]2017-08-04 23:45:00 Test Item Value Reference Range Interpretation Comments eGFR (test code = eGFR) 68 [facility]2017-08-04 23:45:00 Test Item Value Reference Range Interpretation Comments AGAP (test code = AGAP) 13.8 10.0-20.0 [facility]2017-08-04 23:45:00 Test Item Value Reference Range Interpretation Comments Calcium Lvl (test code = Calcium Lvl) 9.0 8.5-10.5 [facility]2017-08-04 23:45:00 Test Item Value Reference Range Interpretation Comments CO2 (test code = CO2) 26 24-32 [facility] [place] [id number] 23:45:00 Test Item Value Reference Range Interpretation Comments Chloride Lvl (test code = Chloride Lvl) 104 95-109 [facility] [place] [id number] 23:45:00 Test Item Value Reference Range Interpretation Comments Potassium Lvl (test code = Potassium 3.8 3.5-5.1 Lvl) [facility] [id number] 23:45:00 Test Item Value Reference Range Interpretation Comments Sodium Lvl (test code = Sodium Lvl) 140 135-145 [facility] [place] [id number] 23:45:00 Test Item Value Reference Range Interpretation Comments Creatinine Lvl (test code = Creatinine 1.07 0.50-1.40 Lvl) [facility] [place] [id number] 23:45:00 Test Item Value Reference Range Interpretation Comments BUN (test code = BUN) 13 7-22 [facility] MGSEJ9130-07-00 23:45:00 Test Item Value Reference Range Interpretation Comments Glucose Lvl (test code = Glucose Lvl) 146 70-99 [facility] ePatientFinder FFYAAJH1718-37-05 16:12:00 Test Item Value Reference Range Interpretation Comments ABO/Rh (test code = ABO/Rh) O POS [facility] [employer]Patient[employer]inder MHZRZRI3319-03-38 16:12:00 Test Item Value Reference Range Interpretation Comments Antibody Scrn (test Negative (09/11/16 11:12 code = Antibody Scrn) AM) [facility] [place] [id number] 16:12:00 Test Item Value Reference Range Interpretation Comments Phosphorus (test code = Phosphorus) 3.3 2.5-4.5 [facility] [place] [id number] 16:12:00 Test Item Value Reference Range Interpretation Comments Magnesium Lvl (test code = Magnesium 1.6 1.8-2.4 Lvl) [facility]WrwwmhkIRPKMTCHEQPJ0449-97-48 16:12:00 Test Item Value Reference Range Interpretation Comments AGAP (test code = AGAP) 9.7 10.0-20.0 [facility] DallasGoiegrgXBKCHAOSWFED3588-73-98 16:12:00 Test Item Value Reference Range Interpretation Comments eGFR (test code = eGFR) 69 [facility] CenterSwgfmdrVZFNSDUGUZLM3128-32-13 16:12:00 Test Item Value Reference Range Interpretation Comments CO2 (test code = CO2) 28 24-32 [facility]QxxsjzhIMNKPYLRDMWS8770-57-26 16:12:00 Test Item Value Reference Range Interpretation Comments Chloride Lvl (test code = Chloride Lvl) 102 95-109 [facility] SystemGijbrguRMFQROUNZLTB2609-87-30 16:12:00 Test Item Value Reference Range Interpretation Comments Potassium Lvl (test code = Potassium 3.7 3.5-5.1 Lvl) [facility] SystemOybfszbTAWWGLLKFYZU9588-22-18 16:12:00 Test Item Value Reference Range Interpretation Comments Calcium Lvl (test code = Calcium Lvl) 8.9 8.5-10.5 [facility] SystemHpeqgfsUFJPWNWPVBFZ8263-89-66 16:12:00 Test Item Value Reference Range Interpretation Comments Sodium Lvl (test code = Sodium Lvl) 136 135-145 [facility] SystemTdzmxbmQIBZHQIRYKHD5700-20-30 16:12:00 Test Item Value Reference Range Interpretation Comments Creatinine Lvl (test code = Creatinine 1.06 0.50-1.40 Lvl) [facility] SystemVyfrpqnNGYMPFXLNUUS8102-49-67 16:12:00 Test Item Value Reference Range Interpretation Comments BUN (test code = BUN) 15 7-22 [facility] SystemKgahuptMAQPLYEMSHRU2014-67-07 16:12:00 Test Item Value Reference Range Interpretation Comments Glucose Lvl (test code = Glucose Lvl) 87 70-99 [facility]vineLdqbwgkXWHTSMEDIS6487-97-59 16:12:00 Test Item Value Reference Range Interpretation Comments Hct (test code = Hct) 33.1 42.0-54.0 [facility]rapevineWoiwraxNLJZQANVDT5836-71-42 16:12:00 Test Item Value Reference Range Interpretation Comments Platelet (test code = Platelet) 188 133-450 [facility] GrapevineXvzmehxDAVAQLIZQO9656-17-60 16:12:00 Test Item Value Reference Range Interpretation Comments Hgb (test code = Hgb) 11.0 14.0-18.0 [facility] GrapevineUtrkqgaJKCVIINPFR8199-49-37 16:12:00 Test Item Value Reference Range Interpretation Comments MPV (test code = MPV) 7.5 7.4-10.4 [facility] GrapevineUlsarvmMGPECIWSRY5887-21-44 16:12:00 Test Item Value Reference Range Interpretation Comments MCV (test code = MCV) 89.2 80.0-94.0 [facility]rapevineYhxjhxjDHLFJHSQZZ0427-24-89 16:12:00 Test Item Value Reference Range Interpretation Comments MCH (test code = MCH) 29.5 pg 27.0-31.0 [facility]rapevineXvwrhvkHNOBIFHMDO0711-83-61 16:12:00 Test Item Value Reference Range Interpretation Comments RBC (test code = RBC) 3.72 4.70-6.10 [facility] GrapevineZazxcpoUXKCCNAEJW4079-08-82 16:12:00 Test Item Value Reference Range Interpretation Comments RDW (test code = RDW) 14.7 11.5-14.5 [facility]rapevineMkgemrbLWBMKTXBNI5113-72-08 16:12:00 Test Item Value Reference Range Interpretation Comments WBC (test code = WBC) 8.2 3.7-10.4 [facility] GrapevineRirlamhEAAMCXIFXT0148-98-25 16:12:00 Test Item Value Reference Range Interpretation Comments MCHC (test code = MCHC) 33.1 32.0-36.0 [facility] GrapevineTboiaipGTXXLOKDMK3512-62-99 16:12:00 Test Item Value Reference Range Interpretation Comments PT (test code = PT) 16.6 s 12.0-14.7 [facility] GrapevineIpqosuxHANIPHXESY6757-22-14 16:12:00 Test Item Value Reference Range Interpretation Comments INR (test code = INR) 1.32 0.85-1.17 [facility] GrapevineGixxvllQDCKITRMAA7085-22-65 16:12:00 Test Item Value Reference Range Interpretation Comments PTT (test code = PTT) 43.0 s 22.9-35.8 [facility] GrapevineClqzweaOYGBLOCQMT6055-01-37 16:12:00 Test Item Value Reference Range Interpretation Comments Monocytes # (test code 1.6 See_Comment [Aut omated message] The = Monocytes #) system which generated this result tra nsmitted reference range : <=0.8. The reference r gianfranco was not used to int erpret this result as normal/abnormal . [facility]vineEytzhwyNJYAHSXKEU0049-61-06 16:12:00 Test Item Value Reference Range Interpretation Comments Eosinophils # (test code 0.3 See_Comment [A utomated message] The = Eosinophils #) system whic h generated this result tra nsmitted reference range : <=0.5. The reference r gianfranco was not used to int erpret this result as normal/abnormal . [facility] ChildrenRsrpbcoRSGJFMAIED9138-65-30 16:12:00 Test Item Value Reference Range Interpretation Comments Lymphocytes # (test code = Lymphocytes 1.7 1.0-5.5 #) [facility]vinePbbdeziJFMYJVNOCJ4967-79-80 16:12:00 Test Item Value Reference Range Interpretation Comments Basophils (test code = 0.5 See_Comment [Aut omated message] The Basophils) system which ge nerated this result tra nsmitted reference range : <=1.0. The reference r gianfranco was not used to int erpret this result as normal/abnormal . [facility] ChildrenRxcgqexUMLPPRUNZE6565-90-99 16:12:00 Test Item Value Reference Range Interpretation Comments Segs-Bands # (test code = Segs-Bands #) 4.5 1.5-8.1 [facility]rapevineShwdnzxIZOOHDMAUR6150-26-73 16:12:00 Test Item Value Reference Range Interpretation Comments Eosinophils (test code = 3.4 See_Comment [A utomated message] The Eosinophils) system which ge nerated this result tra nsmitted reference range : <=4.0. The reference r gianfranco was not used to int erpret this result as normal/abnormal . [facility] DallasUrpmqjyDBECNKYKNY4450-33-58 16:12:00 Test Item Value Reference Range Interpretation Comments Segs (test code = Segs) 55.3 45.0-75.0 [facility] ChildrenDlcmfyoKDGPAKVYUX2329-63-35 16:12:00 Test Item Value Reference Range Interpretation Comments Lymphocytes (test code = Lymphocytes) 21.2 20.0-40.0 [facility] DallasNlvrbnzOHXYUBSHXQ2048-92-62 16:12:00 Test Item Value Reference Range Interpretation Comments Monocytes (test code = Monocytes) 19.6 2.0-12.0 [facility] DallasVayusa APARIPZ2693-58-39 16:12:00 Test Item Value Reference Range Interpretation Comments ABO/Rh (test code = ABO/Rh) O POS [facility] ePatientFinder LAZPUVB4256-14-71 16:12:00 Test Item Value Reference Range Interpretation Comments Antibody Scrn (test Negative (09/11/16 11:12 code = Antibody Scrn) AM) [facility] [id number] 16:12:00 Test Item Value Reference Range Interpretation Comments Phosphorus (test code = Phosphorus) 3.3 2.5-4.5 [facility]2017-08-04 16:12:00 Test Item Value Reference Range Interpretation Comments Magnesium Lvl (test code = Magnesium 1.6 1.8-2.4 Lvl) [facility]ah[facility]hfUTGZHUDNENON0744-[facility]-10 16:12:00 Test Item Value Reference Range Interpretation Comments AGAP (test code = AGAP) 9.7 10.0-20.0 [facility] SystemPxwxuodLVVPYNCXWVJI1150-74-88 16:12:00 Test Item Value Reference Range Interpretation Comments eGFR (test code = eGFR) 69 [facility] SystemZnpqjuyUBWZRVLGETAE3640-72-09 16:12:00 Test Item Value Reference Range Interpretation Comments CO2 (test code = CO2) 28 24-32 [facility] SystemQapgfpiRHGWLUKAJEZW2596-39-07 16:12:00 Test Item Value Reference Range Interpretation Comments Chloride Lvl (test code = Chloride Lvl) 102 95-109 [facility] SystemNfoxvspNWAWVWRCSQHJ1897-05-27 16:12:00 Test Item Value Reference Range Interpretation Comments Potassium Lvl (test code = Potassium 3.7 3.5-5.1 Lvl) [facility] SystemDmeqosvGZEMUXBYMRLB3602-27-15 16:12:00 Test Item Value Reference Range Interpretation Comments Calcium Lvl (test code = Calcium Lvl) 8.9 8.5-10.5 [facility] SystemLhlbpbrXVXARVNNCOYT6865-86-00 16:12:00 Test Item Value Reference Range Interpretation Comments Sodium Lvl (test code = Sodium Lvl) 136 135-145 [facility] SystemSdlhypzLFLCXQDWNCCF9839-04-14 16:12:00 Test Item Value Reference Range Interpretation Comments Creatinine Lvl (test code = Creatinine 1.06 0.50-1.40 Lvl) [facility] SystemZhsitsnHCPDOQGCYWGR6238-72-28 16:12:00 Test Item Value Reference Range Interpretation Comments BUN (test code = BUN) 15 7-22 [facility] SystemUrmzlyoBAVYHISKTBXK8072-05-55 16:12:00 Test Item Value Reference Range Interpretation Comments Glucose Lvl (test code = Glucose Lvl) 87 70-99 [facility]vinePbpuzlcWHEAXHHWOV5076-79-69 16:12:00 Test Item Value Reference Range Interpretation Comments Hct (test code = Hct) 33.1 42.0-54.0 [facility]vineJzwrecvHTWAZZSKQA0804-76-07 16:12:00 Test Item Value Reference Range Interpretation Comments Platelet (test code = Platelet) 188 133-450 [facility]rapevineAgqotpjSFTIICVYVH1450-12-86 16:12:00 Test Item Value Reference Range Interpretation Comments Hgb (test code = Hgb) 11.0 14.0-18.0 [facility]rapevineQoykdgdVLZCIIMMIN4093-72-57 16:12:00 Test Item Value Reference Range Interpretation Comments MPV (test code = MPV) 7.5 7.4-10.4 [facility] GrapevineBmykovrESTURQQWOR0552-20-31 16:12:00 Test Item Value Reference Range Interpretation Comments MCV (test code = MCV) 89.2 80.0-94.0 [facility]vineOnhtbjjCWVVXQQUTP4131-57-74 16:12:00 Test Item Value Reference Range Interpretation Comments MCH (test code = MCH) 29.5 pg 27.0-31.0 [facility]rapevineXtvxujcGJADPOWJDK5608-01-32 16:12:00 Test Item Value Reference Range Interpretation Comments RBC (test code = RBC) 3.72 4.70-6.10 [facility]rapevineLjptdwyEJYXEEIFGJ5523-23-25 16:12:00 Test Item Value Reference Range Interpretation Comments RDW (test code = RDW) 14.7 11.5-14.5 [facility]rapevineOqovppdWUOSJEQFDD3899-38-06 16:12:00 Test Item Value Reference Range Interpretation Comments WBC (test code = WBC) 8.2 3.7-10.4 [facility]rapevineKamzicvKHTOBDJHZC7204-90-54 16:12:00 Test Item Value Reference Range Interpretation Comments MCHC (test code = MCHC) 33.1 32.0-36.0 [facility] GrapevineJnejzggFNLJHMFWCY6075-98-16 16:12:00 Test Item Value Reference Range Interpretation Comments PT (test code = PT) 16.6 s 12.0-14.7 [facility] GrapevineNlyxbudBQPDKZSVIH6901-15-52 16:12:00 Test Item Value Reference Range Interpretation Comments INR (test code = INR) 1.32 0.85-1.17 [facility] GrapevineZjlikihEPJMDTZXLD9651-23-19 16:12:00 Test Item Value Reference Range Interpretation Comments PTT (test code = PTT) 43.0 s 22.9-35.8 [facility]rapevineQnjnemqSEVDZNIFQR3765-63-44 16:12:00 Test Item Value Reference Range Interpretation Comments Monocytes # (test code 1.6 See_Comment [Aut omated message] The = Monocytes #) system which generated this result tra nsmitted reference range : <=0.8. The reference r gianfranco was not used to int erpret this result as normal/abnormal . [facility] GrapevineFchatunETRMFRFEPX0109-36-77 16:12:00 Test Item Value Reference Range Interpretation Comments Eosinophils # (test code 0.3 See_Comment [A utomated message] The = Eosinophils #) system whic h generated this result tra nsmitted reference range : <=0.5. The reference r gianfranco was not used to int erpret this result as normal/abnormal . [facility] GrapevineYtmyicaFNSTWGBGJK4212-87-73 16:12:00 Test Item Value Reference Range Interpretation Comments Lymphocytes # (test code = Lymphocytes 1.7 1.0-5.5 #) [facility]rapevineQsewysyGBJKKBNXGM7451-11-40 16:12:00 Test Item Value Reference Range Interpretation Comments Basophils (test code = 0.5 See_Comment [Aut omated message] The Basophils) system which ge nerated this result tra nsmitted reference range : <=1.0. The reference r gianfranco was not used to int erpret this result as normal/abnormal . [facility] GrapevineLohyeupRZFIGTPGML1511-74-31 16:12:00 Test Item Value Reference Range Interpretation Comments Segs-Bands # (test code = Segs-Bands #) 4.5 1.5-8.1 [facility]rapevineKffggwjIWUEEODLSN4964-38-68 16:12:00 Test Item Value Reference Range Interpretation Comments Eosinophils (test code = 3.4 See_Comment [A utomated message] The Eosinophils) system which ge nerated this result tra nsmitted reference range : <=4.0. The reference r gianfranco was not used to int erpret this result as normal/abnormal . [facility]rapevineEubhgquRBORZQYKOQ3737-67-45 16:12:00 Test Item Value Reference Range Interpretation Comments Segs (test code = Segs) 55.3 45.0-75.0 [facility] GrapevineItorqorNHCVMCHFNH7285-61-32 16:12:00 Test Item Value Reference Range Interpretation Comments Lymphocytes (test code = Lymphocytes) 21.2 20.0-40.0 [facility] GrapevineSkzjnfbDVSTNGVKTK2971-07-36 16:12:00 Test Item Value Reference Range Interpretation Comments Monocytes (test code = Monocytes) 19.6 2.0-12.0 [facility] CLTMOPL0813-58-71 16:12:00 Test Item Value Reference Range Interpretation Comments ABO/Rh (test code = ABO/Rh) O POS [facility] TGMXFMN6761-79-45 16:12:00 Test Item Value Reference Range Interpretation Comments Antibody Scrn (test Negative (09/11/16 11:12 code = Antibody Scrn) AM) [facility] ChildrenRock [employer] World RGNEE4350-75-04 16:12:00 Test Item Value Reference Range Interpretation Comments Phosphorus (test code = Phosphorus) 3.3 2.5-4.5 [facility] WYDRX4665-68-28 16:12:00 Test Item Value Reference Range Interpretation Comments Magnesium Lvl (test code = Magnesium 1.6 1.8-2.4 Lvl) [facility]WxniqyaLIAHHEXHYXFJ2830-16-39 16:12:00 Test Item Value Reference Range Interpretation Comments AGAP (test code = AGAP) 9.7 10.0-20.0 [facility] SystemJtopkdtTLPXRVVLBSJX1038-99-98 16:12:00 Test Item Value Reference Range Interpretation Comments eGFR (test code = eGFR) 69 [facility] SystemSnzfhhpKPBHGOTOBWXF6803-56-15 16:12:00 Test Item Value Reference Range Interpretation Comments CO2 (test code = CO2) 28 24-32 [facility] SystemNlwpjnwACZWZOSXPWOR1767-97-54 16:12:00 Test Item Value Reference Range Interpretation Comments Chloride Lvl (test code = Chloride Lvl) 102 95-109 [facility] SystemXrhpixtLTNUERHKHWXB4095-05-42 16:12:00 Test Item Value Reference Range Interpretation Comments Potassium Lvl (test code = Potassium 3.7 3.5-5.1 Lvl) [facility] SystemSvpuvtoNPRELEILOMBM9940-56-71 16:12:00 Test Item Value Reference Range Interpretation Comments Calcium Lvl (test code = Calcium Lvl) 8.9 8.5-10.5 [facility] SystemGpnlihzEBMIORNRYMXQ9035-40-37 16:12:00 Test Item Value Reference Range Interpretation Comments Sodium Lvl (test code = Sodium Lvl) 136 135-145 [facility] SystemGudspsuFPDMSVFMZPGJ5025-87-98 16:12:00 Test Item Value Reference Range Interpretation Comments Creatinine Lvl (test code = Creatinine 1.06 0.50-1.40 Lvl) [facility] SystemZaknzptZPQWYLMERQJL0362-09-16 16:12:00 Test Item Value Reference Range Interpretation Comments BUN (test code = BUN) 15 7-22 [facility] SystemUkviamnBKHVBMCTYPYW1371-81-66 16:12:00 Test Item Value Reference Range Interpretation Comments Glucose Lvl (test code = Glucose Lvl) 87 70-99 [facility]vineJppurogUWMORUGGYD1304-55-87 16:12:00 Test Item Value Reference Range Interpretation Comments Hct (test code = Hct) 33.1 42.0-54.0 [facility]rapevineJcheyrvQTKVOBHIXQ7329-01-68 16:12:00 Test Item Value Reference Range Interpretation Comments Platelet (test code = Platelet) 188 133-450 [facility] GrapevineOpsvmlxKPTZJCLZUN4428-25-22 16:12:00 Test Item Value Reference Range Interpretation Comments Hgb (test code = Hgb) 11.0 14.0-18.0 [facility]rapevineKgqfiviSZTDPEMDKB3640-70-18 16:12:00 Test Item Value Reference Range Interpretation Comments MPV (test code = MPV) 7.5 7.4-10.4 [facility]rapevineQgvpoiaFOYYJDLJOC7266-20-33 16:12:00 Test Item Value Reference Range Interpretation Comments MCV (test code = MCV) 89.2 80.0-94.0 [facility]rapevineEjnbpyqVJHEWYBHXS7986-23-79 16:12:00 Test Item Value Reference Range Interpretation Comments MCH (test code = MCH) 29.5 pg 27.0-31.0 [facility] GrapevineGyqankdSAHNDQSZNY2593-68-54 16:12:00 Test Item Value Reference Range Interpretation Comments RBC (test code = RBC) 3.72 4.70-6.10 [facility]rapevineGauwwkwHXFJNYEXKN3878-22-30 16:12:00 Test Item Value Reference Range Interpretation Comments RDW (test code = RDW) 14.7 11.5-14.5 [facility] GrapevineUdyzycbNIPSKNXAKR2684-30-03 16:12:00 Test Item Value Reference Range Interpretation Comments WBC (test code = WBC) 8.2 3.7-10.4 [facility] GrapevineZezbwefABHIEIETFJ8374-11-62 16:12:00 Test Item Value Reference Range Interpretation Comments MCHC (test code = MCHC) 33.1 32.0-36.0 [facility] GrapevineYdrpdhpDFJYSGTMVG6617-19-52 16:12:00 Test Item Value Reference Range Interpretation Comments PT (test code = PT) 16.6 s 12.0-14.7 [facility]rapevineHgkoxwjPBYMBYVWCX3015-76-43 16:12:00 Test Item Value Reference Range Interpretation Comments INR (test code = INR) 1.32 0.85-1.17 [facility]rapevineQbgmmtzTECTUEZNRE8359-44-74 16:12:00 Test Item Value Reference Range Interpretation Comments PTT (test code = PTT) 43.0 s 22.9-35.8 [facility] GrapevineUcxvdiaYLQLSSORPU2296-05-22 16:12:00 Test Item Value Reference Range Interpretation Comments Monocytes # (test code 1.6 See_Comment [Aut omated message] The = Monocytes #) system which generated this result tra nsmitted reference range : <=0.8. The reference r gianfranco was not used to int erpret this result as normal/abnormal . [facility] GrapevineAcnxlboBBUSLWBYIF5288-71-29 16:12:00 Test Item Value Reference Range Interpretation Comments Eosinophils # (test code 0.3 See_Comment [A utomated message] The = Eosinophils #) system whic h generated this result tra nsmitted reference range : <=0.5. The reference r gianfranco was not used to int erpret this result as normal/abnormal . [facility] GrapevineKcaahzhHXEZLTDKTS4925-83-05 16:12:00 Test Item Value Reference Range Interpretation Comments Lymphocytes # (test code = Lymphocytes 1.7 1.0-5.5 #) [facility] GrapevineBugjvqkYJZPOVSSRV4375-77-79 16:12:00 Test Item Value Reference Range Interpretation Comments Basophils (test code = 0.5 See_Comment [Aut omated message] The Basophils) system which ge nerated this result tra nsmitted reference range : <=1.0. The reference r gianfranco was not used to int erpret this result as normal/abnormal . [facility] GrapevineYmboyjvODIARHTMFF5189-49-07 16:12:00 Test Item Value Reference Range Interpretation Comments Segs-Bands # (test code = Segs-Bands #) 4.5 1.5-8.1 [facility] GrapevineZrmmishTLQINGMERG3037-00-57 16:12:00 Test Item Value Reference Range Interpretation Comments Eosinophils (test code = 3.4 See_Comment [A utomated message] The Eosinophils) system which ge nerated this result tra nsmitted reference range : <=4.0. The reference r gianfranco was not used to int erpret this result as normal/abnormal . [facility] ChildrenRnfhosvSGJEXDQWUH3312-34-05 16:12:00 Test Item Value Reference Range Interpretation Comments Segs (test code = Segs) 55.3 45.0-75.0 [facility] GrapevineRebcunpGENGJVWDJG4453-45-31 16:12:00 Test Item Value Reference Range Interpretation Comments Lymphocytes (test code = Lymphocytes) 21.2 20.0-40.0 [facility]rapevineEcnxldcZKFTTCJFNC7937-25-87 16:12:00 Test Item Value Reference Range Interpretation Comments Monocytes (test code = Monocytes) 19.6 2.0-12.0 [facility] DallasVayusa ADPXSCE1007-25-41 16:12:00 Test Item Value Reference Range Interpretation Comments ABO/Rh (test code = ABO/Rh) O POS [facility] DallasViryd TechnologiesAbleSky [facility] PJWGPJM6850-73-15 16:12:00 Test Item Value Reference Range Interpretation Comments Antibody Scrn (test Negative (09/11/16 11:12 code = Antibody Scrn) AM) [facility] DallasB[facility] EIEGH1421-92-68 16:12:00 Test Item Value Reference Range Interpretation Comments Phosphorus (test code = Phosphorus) 3.3 2.5-4.5 [facility] HFJFR5823-16-93 16:12:00 Test Item Value Reference Range Interpretation Comments Magnesium Lvl (test code = Magnesium 1.6 1.8-2.4 Lvl) [facility] DallasTmugwfvOXFBKTOJUUJY3010-03-08 16:12:00 Test Item Value Reference Range Interpretation Comments AGAP (test code = AGAP) 9.7 10.0-20.0 [facility] DallasXzqbppfANEVKYRHAJKE4289-18-56 16:12:00 Test Item Value Reference Range Interpretation Comments eGFR (test code = eGFR) 69 [facility] DallasLhdlecfCGTEOUTGKOZB0399-48-32 16:12:00 Test Item Value Reference Range Interpretation Comments CO2 (test code = CO2) 28 24-32 [facility]OwfjidvHLGPALJYBFQR1301-25-87 16:12:00 Test Item Value Reference Range Interpretation Comments Chloride Lvl (test code = Chloride Lvl) 102 95-109 [facility] SystemZdgegopJLCXIOLHXQXJ7117-05-48 16:12:00 Test Item Value Reference Range Interpretation Comments Potassium Lvl (test code = Potassium 3.7 3.5-5.1 Lvl) [facility] SystemUndznljPZVUURBGHUVY4286-23-57 16:12:00 Test Item Value Reference Range Interpretation Comments Calcium Lvl (test code = Calcium Lvl) 8.9 8.5-10.5 [facility] SystemHlcunivWXYURCEQGVFQ0477-90-44 16:12:00 Test Item Value Reference Range Interpretation Comments Sodium Lvl (test code = Sodium Lvl) 136 135-145 [facility] SystemLuxtwunBPXUYWYVSUME9860-85-14 16:12:00 Test Item Value Reference Range Interpretation Comments Creatinine Lvl (test code = Creatinine 1.06 0.50-1.40 Lvl) [facility] SystemKrrgavlXNHFKDJQNPGN8453-18-44 16:12:00 Test Item Value Reference Range Interpretation Comments BUN (test code = BUN) 15 7-22 [facility] SystemFjbehldKDRDAMSFQFHU8251-85-87 16:12:00 Test Item Value Reference Range Interpretation Comments Glucose Lvl (test code = Glucose Lvl) 87 70-99 [facility] GrapevineCfxusgaVZRUKBZAKH4566-53-30 16:12:00 Test Item Value Reference Range Interpretation Comments Hct (test code = Hct) 33.1 42.0-54.0 [facility] GrapevineEattuxcQCLUMLTNJC8477-97-46 16:12:00 Test Item Value Reference Range Interpretation Comments Platelet (test code = Platelet) 188 133-450 [facility] GrapevineJorxqqoLGPGWLSDNH5144-15-27 16:12:00 Test Item Value Reference Range Interpretation Comments Hgb (test code = Hgb) 11.0 14.0-18.0 [facility] GrapevineBpmxtlwNYRURALOSZ0275-03-67 16:12:00 Test Item Value Reference Range Interpretation Comments MPV (test code = MPV) 7.5 7.4-10.4 [facility] GrapevineIvlyonyCWVHUGPMOW5064-90-31 16:12:00 Test Item Value Reference Range Interpretation Comments MCV (test code = MCV) 89.2 80.0-94.0 [facility] GrapevineOmfvdmmINEBIPFHKH8783-71-32 16:12:00 Test Item Value Reference Range Interpretation Comments MCH (test code = MCH) 29.5 pg 27.0-31.0 [facility] GrapevineFicwicmMZEWFDBWVT0134-28-93 16:12:00 Test Item Value Reference Range Interpretation Comments RBC (test code = RBC) 3.72 4.70-6.10 [facility] GrapevineExlstavDEVSQSZCWX4223-12-43 16:12:00 Test Item Value Reference Range Interpretation Comments RDW (test code = RDW) 14.7 11.5-14.5 [facility] GrapevineZzkbpnyXEKKPLGYOB4069-09-14 16:12:00 Test Item Value Reference Range Interpretation Comments WBC (test code = WBC) 8.2 3.7-10.4 [facility] GrapevineVesvgzvCODEWRCUPH6024-42-06 16:12:00 Test Item Value Reference Range Interpretation Comments MCHC (test code = MCHC) 33.1 32.0-36.0 [facility] GrapevineLvvprkgKPUPKJHOEY1450-88-21 16:12:00 Test Item Value Reference Range Interpretation Comments PT (test code = PT) 16.6 s 12.0-14.7 [facility] GrapevineIywqungASKCPKVCQV6798-76-33 16:12:00 Test Item Value Reference Range Interpretation Comments INR (test code = INR) 1.32 0.85-1.17 [facility] GrapevineElqizlpDRKMUMALUJ2405-97-78 16:12:00 Test Item Value Reference Range Interpretation Comments PTT (test code = PTT) 43.0 s 22.9-35.8 [facility] GrapevineZxnbtmyLWPBQERNAZ7567-05-70 16:12:00 Test Item Value Reference Range Interpretation Comments Monocytes # (test code 1.6 See_Comment [Aut omated message] The = Monocytes #) system which generated this result tra nsmitted reference range : <=0.8. The reference r gianfranco was not used to int erpret this result as normal/abnormal . [facility] GrapevineLjnvgnyXLYNYUDUHQ8098-56-52 16:12:00 Test Item Value Reference Range Interpretation Comments Eosinophils # (test code 0.3 See_Comment [A utomated message] The = Eosinophils #) system whic h generated this result tra nsmitted reference range : <=0.5. The reference r gianfranco was not used to int erpret this result as normal/abnormal . [facility] GrapevineFjlanklGDPTIMZQDS2746-57-59 16:12:00 Test Item Value Reference Range Interpretation Comments Lymphocytes # (test code = Lymphocytes 1.7 1.0-5.5 #) [facility] GrapevineFqmqzxyMLUSGRDIWV9722-73-35 16:12:00 Test Item Value Reference Range Interpretation Comments Basophils (test code = 0.5 See_Comment [Aut omated message] The Basophils) system which ge nerated this result tra nsmitted reference range : <=1.0. The reference r gianfranco was not used to int erpret this result as normal/abnormal . [facility] HycldrxKEPHBBLRWA1719-10-97 16:12:00 Test Item Value Reference Range Interpretation Comments Segs-Bands # (test code = Segs-Bands #) 4.5 1.5-8.1 [facility] DallasLtibohiREJHZCJJAH1128-90-58 16:12:00 Test Item Value Reference Range Interpretation Comments Eosinophils (test code = 3.4 See_Comment [A utomated message] The Eosinophils) system which ge nerated this result tra nsmitted reference range : <=4.0. The reference r gianfranco was not used to int erpret this result as normal/abnormal . [facility] YvfabuhVZIDBEFRCV8262-77-98 16:12:00 Test Item Value Reference Range Interpretation Comments Segs (test code = Segs) 55.3 45.0-75.0 [facility] DallasHgpenlcUWYKRUNKCM9750-04-14 16:12:00 Test Item Value Reference Range Interpretation Comments Lymphocytes (test code = Lymphocytes) 21.2 20.0-40.0 [facility] DallasJqpnakqNSIMNZNRSZ9455-76-83 16:12:00 Test Item Value Reference Range Interpretation Comments Monocytes (test code = Monocytes) 19.6 2.0-12.0 [employer] QOQGUBI8934-41-04 16:12:00 Test Item Value Reference Range Interpretation Comments ABO/Rh (test code = ABO/Rh) O POS [facility] ePatientFinder LHLRUXZ4059-45-92 16:12:00 Test Item Value Reference Range Interpretation Comments Antibody Scrn (test Negative (09/11/16 11:12 code = Antibody Scrn) AM) [facility] [place] IRGMP5353-28-17 16:12:00 Test Item Value Reference Range Interpretation Comments Phosphorus (test code = Phosphorus) 3.3 2.5-4.5 [facility] [employer] [id number] 16:12:00 Test Item Value Reference Range Interpretation Comments Magnesium Lvl (test code = Magnesium 1.6 1.8-2.4 Lvl) [facility] UdhrahbWGTQGWUJLMDL6582-81-29 16:12:00 Test Item Value Reference Range Interpretation Comments AGAP (test code = AGAP) 9.7 10.0-20.0 [facility] TrujldpPQIYVCCHLKPB5706-60-66 16:12:00 Test Item Value Reference Range Interpretation Comments eGFR (test code = eGFR) 69 [facility]ghibeoBBIUFIRMYRYZ1282-99-65 16:12:00 Test Item Value Reference Range Interpretation Comments CO2 (test code = CO2) 28 24-32 [facility] SystemVddpyxsCUJNOZWZNGXY8842-05-01 16:12:00 Test Item Value Reference Range Interpretation Comments Chloride Lvl (test code = Chloride Lvl) 102 95-109 [facility] SystemJozwwtoSMNBABHBPSIA7041-86-31 16:12:00 Test Item Value Reference Range Interpretation Comments Potassium Lvl (test code = Potassium 3.7 3.5-5.1 Lvl) [facility]IcfhmegFGQEKOUPDDWS8568-53-16 16:12:00 Test Item Value Reference Range Interpretation Comments Calcium Lvl (test code = Calcium Lvl) 8.9 8.5-10.5 [facility] SystemWpsacodUHKNNVTSUCEM4384-12-06 16:12:00 Test Item Value Reference Range Interpretation Comments Sodium Lvl (test code = Sodium Lvl) 136 135-145 [facility] SystemMkbwspoHFMABKRZQYRX2104-19-81 16:12:00 Test Item Value Reference Range Interpretation Comments Creatinine Lvl (test code = Creatinine 1.06 0.50-1.40 Lvl) [facility] SystemXugdsyxUSQCKBJNHDLW1093-02-97 16:12:00 Test Item Value Reference Range Interpretation Comments BUN (test code = BUN) 15 7-22 [facility] SystemNfcxwnfYPLXRBBQCWXV3454-07-02 16:12:00 Test Item Value Reference Range Interpretation Comments Glucose Lvl (test code = Glucose Lvl) 87 70-99 [facility]OqlqlfqTSVCBZGSMN2155-61-25 16:12:00 Test Item Value Reference Range Interpretation Comments Hct (test code = Hct) 33.1 42.0-54.0 [facility]vinePwcqxahYQUBADQSNV8971-42-64 16:12:00 Test Item Value Reference Range Interpretation Comments Platelet (test code = Platelet) 188 133-450 [facility]vineWbxihzwSFQGUCXYNN9536-57-45 16:12:00 Test Item Value Reference Range Interpretation Comments Hgb (test code = Hgb) 11.0 14.0-18.0 [facility]vineRjnziheDZXYYRUJLD5736-73-58 16:12:00 Test Item Value Reference Range Interpretation Comments MPV (test code = MPV) 7.5 7.4-10.4 [facility]vineQnrtvxbXJTIQZKIQZ1995-52-59 16:12:00 Test Item Value Reference Range Interpretation Comments MCV (test code = MCV) 89.2 80.0-94.0 [facility]vineYgpmcynXQNITBTQIO8983-96-89 16:12:00 Test Item Value Reference Range Interpretation Comments MCH (test code = MCH) 29.5 pg 27.0-31.0 [facility]vineKfopsjqKMILZYJHHJ3617-73-80 16:12:00 Test Item Value Reference Range Interpretation Comments RBC (test code = RBC) 3.72 4.70-6.10 [facility]vineMngtltfRUGRPHKJXI4459-87-71 16:12:00 Test Item Value Reference Range Interpretation Comments RDW (test code = RDW) 14.7 11.5-14.5 [facility]vineSvyymaiXLPCNISQVX0909-52-60 16:12:00 Test Item Value Reference Range Interpretation Comments WBC (test code = WBC) 8.2 3.7-10.4 [facility]vineTdbzxcsNWEBFUFGDR3008-33-70 16:12:00 Test Item Value Reference Range Interpretation Comments MCHC (test code = MCHC) 33.1 32.0-36.0 [facility]vineYigkkwpFLQTBNPZPS6414-97-11 16:12:00 Test Item Value Reference Range Interpretation Comments PT (test code = PT) 16.6 s 12.0-14.7 [facility]rapevineTlzaamyPVWEYBCSJS3601-32-64 16:12:00 Test Item Value Reference Range Interpretation Comments INR (test code = INR) 1.32 0.85-1.17 [facility]rapevineQatjlppXSNKPCAMPQ7920-61-28 16:12:00 Test Item Value Reference Range Interpretation Comments PTT (test code = PTT) 43.0 s 22.9-35.8 [facility]rapevineAfojoddOJLUTUGTPM1028-89-70 16:12:00 Test Item Value Reference Range Interpretation Comments Monocytes # (test code 1.6 See_Comment [Aut omated message] The = Monocytes #) system which generated this result tra nsmitted reference range : <=0.8. The reference r gianfranco was not used to int erpret this result as normal/abnormal . [facility]rapevineBvolpygXKGECUSEJQ7057-30-59 16:12:00 Test Item Value Reference Range Interpretation Comments Eosinophils # (test code 0.3 See_Comment [A utomated message] The = Eosinophils #) system whic h generated this result tra nsmitted reference range : <=0.5. The reference r gianfranco was not used to int erpret this result as normal/abnormal . [facility] ChildrenApisghrAJNPOBKHJA7262-61-63 16:12:00 Test Item Value Reference Range Interpretation Comments Lymphocytes # (test code = Lymphocytes 1.7 1.0-5.5 #) [facility] ChildrenWlpyabgAESRISWOFR1396-00-83 16:12:00 Test Item Value Reference Range Interpretation Comments Basophils (test code = 0.5 See_Comment [Aut omated message] The Basophils) system which ge nerated this result tra nsmitted reference range : <=1.0. The reference r gianfranco was not used to int erpret this result as normal/abnormal . [facility] ChildrenRjxmqflXBYOIEIZCN3289-52-83 16:12:00 Test Item Value Reference Range Interpretation Comments Segs-Bands # (test code = Segs-Bands #) 4.5 1.5-8.1 [facility] ChildrenRywbuznTBYTKLZHAS9294-89-85 16:12:00 Test Item Value Reference Range Interpretation Comments Eosinophils (test code = 3.4 See_Comment [A utomated message] The Eosinophils) system which ge nerated this result tra nsmitted reference range : <=4.0. The reference r gianfranco was not used to int erpret this result as normal/abnormal . [facility] ChildrenZhzhxufUWQZMCYEVQ8987-40-86 16:12:00 Test Item Value Reference Range Interpretation Comments Segs (test code = Segs) 55.3 45.0-75.0 [facility] DallasRwwjexlWTLCJYLHNL8746-62-91 16:12:00 Test Item Value Reference Range Interpretation Comments Lymphocytes (test code = Lymphocytes) 21.2 20.0-40.0 [facility] DallasYivxasbITAZOFRQWJ8952-98-29 16:12:00 Test Item Value Reference Range Interpretation Comments Monocytes (test code = Monocytes) 19.6 2.0-12.0 [facility] ePatientFinder FRXADOT1806-77-85 16:12:00 Test Item Value Reference Range Interpretation Comments ABO/Rh (test code = ABO/Rh) O POS [facility] ePatientFinder NIWGNPQ5097-00-32 16:12:00 Test Item Value Reference Range Interpretation Comments Antibody Scrn (test Negative (09/11/16 11:12 code = Antibody Scrn) AM) [facility] [place] [id number] 16:12:00 Test Item Value Reference Range Interpretation Comments Phosphorus (test code = Phosphorus) 3.3 2.5-4.5 [facility] ChildrenCHEM CMQXN8992-20-53 16:12:00 Test Item Value Reference Range Interpretation Comments Magnesium Lvl (test code = Magnesium 1.6 1.8-2.4 Lvl) [facility]KgsyerdBZPDMLKCUKWK1662-21-75 16:12:00 Test Item Value Reference Range Interpretation Comments AGAP (test code = AGAP) 9.7 10.0-20.0 [facility] SystemChvuevtAQCTGHALCRZS3968-61-18 16:12:00 Test Item Value Reference Range Interpretation Comments eGFR (test code = eGFR) 69 [facility] SystemYdgltgpGIRCBNQVEMBW0493-88-15 16:12:00 Test Item Value Reference Range Interpretation Comments CO2 (test code = CO2) 28 24-32 [facility] SystemYkmypilUXHXSEFUSIWV3591-84-46 16:12:00 Test Item Value Reference Range Interpretation Comments Chloride Lvl (test code = Chloride Lvl) 102 95-109 [facility] SystemYdrctxkLJPBGBKQUENC8703-43-10 16:12:00 Test Item Value Reference Range Interpretation Comments Potassium Lvl (test code = Potassium 3.7 3.5-5.1 Lvl) [facility] SystemYlzoygoDJPGNFJANDQJ6674-64-85 16:12:00 Test Item Value Reference Range Interpretation Comments Calcium Lvl (test code = Calcium Lvl) 8.9 8.5-10.5 [facility] SystemNtxmcyoEQDFXIUGZJKP1413-08-75 16:12:00 Test Item Value Reference Range Interpretation Comments Sodium Lvl (test code = Sodium Lvl) 136 135-145 [facility] SystemWhkugptUCKECMYXMIKC4847-37-49 16:12:00 Test Item Value Reference Range Interpretation Comments Creatinine Lvl (test code = Creatinine 1.06 0.50-1.40 Lvl) [facility] SystemMvdciggQNGJCDNZDTVN1397-74-98 16:12:00 Test Item Value Reference Range Interpretation Comments BUN (test code = BUN) 15 7-22 [facility] SystemMntxscbJFTQVIGLQDRH1112-29-90 16:12:00 Test Item Value Reference Range Interpretation Comments Glucose Lvl (test code = Glucose Lvl) 87 70-99 [facility] ChildrenJaknwynLSVVTNBGNP6064-66-53 16:12:00 Test Item Value Reference Range Interpretation Comments Hct (test code = Hct) 33.1 42.0-54.0 [facility]vineMsjpxdiVKSOTYBRXQ5740-15-09 16:12:00 Test Item Value Reference Range Interpretation Comments Platelet (test code = Platelet) 188 133-450 [facility]vineKkqegowCEWBWAAOQI2527-60-79 16:12:00 Test Item Value Reference Range Interpretation Comments Hgb (test code = Hgb) 11.0 14.0-18.0 [facility]rapevineLcixhqcRVUBBLZBFU4077-21-35 16:12:00 Test Item Value Reference Range Interpretation Comments MPV (test code = MPV) 7.5 7.4-10.4 [facility]rapevineLvrudvdFWSMZQTILP2273-60-28 16:12:00 Test Item Value Reference Range Interpretation Comments MCV (test code = MCV) 89.2 80.0-94.0 [facility]vineNwoebifJXIWMSZYUQ3688-08-38 16:12:00 Test Item Value Reference Range Interpretation Comments MCH (test code = MCH) 29.5 pg 27.0-31.0 [facility]rapevineNtaynhnLUWTIPCVQI7793-42-84 16:12:00 Test Item Value Reference Range Interpretation Comments RBC (test code = RBC) 3.72 4.70-6.10 [facility]vineImyzgfsJQPZHGGYWY8405-62-64 16:12:00 Test Item Value Reference Range Interpretation Comments RDW (test code = RDW) 14.7 11.5-14.5 [facility]vineFqgmvsgLFMXRVAQRV5720-78-64 16:12:00 Test Item Value Reference Range Interpretation Comments WBC (test code = WBC) 8.2 3.7-10.4 [facility]vineKszgtpuOAFXSCFLLB0059-87-88 16:12:00 Test Item Value Reference Range Interpretation Comments MCHC (test code = MCHC) 33.1 32.0-36.0 [facility]rapevineKrlgmkcCNUKPYKDPT5198-89-17 16:12:00 Test Item Value Reference Range Interpretation Comments PT (test code = PT) 16.6 s 12.0-14.7 [facility]rapevineZounukzAKSGQXYIBP9560-65-32 16:12:00 Test Item Value Reference Range Interpretation Comments INR (test code = INR) 1.32 0.85-1.17 [facility]rapevineAiohelhIEQCZOZUFY6948-54-26 16:12:00 Test Item Value Reference Range Interpretation Comments PTT (test code = PTT) 43.0 s 22.9-35.8 [place] [id number] 16:12:00 Test Item Value Reference Range Interpretation Comments Monocytes # (test code 1.6 See_Comment [Aut omated message] The = Monocytes #) system which generated this result tra nsmitted reference range : <=0.8. The reference r gianfranco was not used to int erpret this result as normal/abnormal . [facility]rapevineZbrpozvSDRTJMHSTQ4477-41-03 16:12:00 Test Item Value Reference Range Interpretation Comments Eosinophils # (test code 0.3 See_Comment [A utomated message] The = Eosinophils #) system whic h generated this result tra nsmitted reference range : <=0.5. The reference r gianfranco was not used to int erpret this result as normal/abnormal . [facility] GrapevineIovrlmcUTKRITJGHG3818-54-24 16:12:00 Test Item Value Reference Range Interpretation Comments Lymphocytes # (test code = Lymphocytes 1.7 1.0-5.5 #) [facility]rapevineQwbiqkoXNDVESGRGX3320-69-19 16:12:00 Test Item Value Reference Range Interpretation Comments Basophils (test code = 0.5 See_Comment [Aut omated message] The Basophils) system which ge nerated this result tra nsmitted reference range : <=1.0. The reference r gianfranco was not used to int erpret this result as normal/abnormal . [facility] GrapevineFgluaryILWEGUZRKJ7479-56-59 16:12:00 Test Item Value Reference Range Interpretation Comments Segs-Bands # (test code = Segs-Bands #) 4.5 1.5-8.1 [facility]rapevineVxvpfgfINNVSIZLOU3737-73-06 16:12:00 Test Item Value Reference Range Interpretation Comments Eosinophils (test code = 3.4 See_Comment [A utomated message] The Eosinophils) system which ge nerated this result tra nsmitted reference range : <=4.0. The reference r gianfranco was not used to int erpret this result as normal/abnormal . [facility]vineYlppszkAFAZZURAWR4574-31-13 16:12:00 Test Item Value Reference Range Interpretation Comments Segs (test code = Segs) 55.3 45.0-75.0 [facility]rapevineIrkjyzxSKAHDUKOQX6712-26-04 16:12:00 Test Item Value Reference Range Interpretation Comments Lymphocytes (test code = Lymphocytes) 21.2 20.0-40.0 [facility]rapevineAiemfwdSDTNTMADIA3698-99-36 16:12:00 Test Item Value Reference Range Interpretation Comments Monocytes (test code = Monocytes) 19.6 2.0-12.0 [facility] BANK LODLEWA0740-32-19 16:12:00 Test Item Value Reference Range Interpretation Comments ABO/Rh (test code = ABO/Rh) O POS [facility] CGFQSEJ0689-10-95 16:12:00 Test Item Value Reference Range Interpretation Comments Antibody Scrn (test Negative (09/11/16 11:12 code = Antibody Scrn) AM) [facility] ChildrenRock [facility] RMXNI3372-11-21 16:12:00 Test Item Value Reference Range Interpretation Comments Phosphorus (test code = Phosphorus) 3.3 2.5-4.5 [facility] DallasBioniq Health TXVRQ6116-49-42 16:12:00 Test Item Value Reference Range Interpretation Comments Magnesium Lvl (test code = Magnesium 1.6 1.8-2.4 Lvl) [facility]IjextxsJMECPMYWEVTC4083-98-69 16:12:00 Test Item Value Reference Range Interpretation Comments AGAP (test code = AGAP) 9.7 10.0-20.0 [facility] SystemNcwnsaiXLRGSHYKVOHH1478-90-51 16:12:00 Test Item Value Reference Range Interpretation Comments eGFR (test code = eGFR) 69 [facility] SystemHfsutgfCNOQUYOOCOQV6187-37-29 16:12:00 Test Item Value Reference Range Interpretation Comments CO2 (test code = CO2) 28 24-32 [facility] SystemYrajvplAPZUIVAIBLYX6036-11-04 16:12:00 Test Item Value Reference Range Interpretation Comments Chloride Lvl (test code = Chloride Lvl) 102 95-109 [facility] SystemIeicvdrOHTRMVTSCSCC0424-57-52 16:12:00 Test Item Value Reference Range Interpretation Comments Potassium Lvl (test code = Potassium 3.7 3.5-5.1 Lvl) [facility] DallasNqrnluuLPSDBHCHFCOM3225-04-17 16:12:00 Test Item Value Reference Range Interpretation Comments Calcium Lvl (test code = Calcium Lvl) 8.9 8.5-10.5 [facility] SystemQospqzfVKDSXAPNDCLM6015-49-41 16:12:00 Test Item Value Reference Range Interpretation Comments Sodium Lvl (test code = Sodium Lvl) 136 135-145 [facility] SystemKggxhlyLXQRUWRYSNZV2786-37-14 16:12:00 Test Item Value Reference Range Interpretation Comments Creatinine Lvl (test code = Creatinine 1.06 0.50-1.40 Lvl) [facility] SystemFjaxkcnEZKEGMRHKNQP2869-22-37 16:12:00 Test Item Value Reference Range Interpretation Comments BUN (test code = BUN) 15 7-22 [facility] SystemGebraujGNKPRRFRODNP0119-52-03 16:12:00 Test Item Value Reference Range Interpretation Comments Glucose Lvl (test code = Glucose Lvl) 87 70-99 [facility]vineKlpkhyzRVIXRJXIXD3481-02-41 16:12:00 Test Item Value Reference Range Interpretation Comments Hct (test code = Hct) 33.1 42.0-54.0 [facility]rapevineWeddoeuUNOJKJTNGI4170-21-49 16:12:00 Test Item Value Reference Range Interpretation Comments Platelet (test code = Platelet) 188 133-450 [facility]rapevineQwoattfPHKTXMOXGQ4084-38-74 16:12:00 Test Item Value Reference Range Interpretation Comments Hgb (test code = Hgb) 11.0 14.0-18.0 [facility]rapevineWtlqoocAIRWZJINEN1073-15-46 16:12:00 Test Item Value Reference Range Interpretation Comments MPV (test code = MPV) 7.5 7.4-10.4 [facility]rapevineGrqvztpCCADUNMHTA2828-02-75 16:12:00 Test Item Value Reference Range Interpretation Comments MCV (test code = MCV) 89.2 80.0-94.0 [facility]rapevineVhdfmraUGZHYBFGXG2827-43-09 16:12:00 Test Item Value Reference Range Interpretation Comments MCH (test code = MCH) 29.5 pg 27.0-31.0 [facility]rapevineKwonvjrTBKKMIVSHZ3816-65-64 16:12:00 Test Item Value Reference Range Interpretation Comments RBC (test code = RBC) 3.72 4.70-6.10 [facility]rapevineYbbgyuiHRMTPYSDSW9469-01-33 16:12:00 Test Item Value Reference Range Interpretation Comments RDW (test code = RDW) 14.7 11.5-14.5 [facility]rapevineNlbglemJTQEBTWPEC9233-08-53 16:12:00 Test Item Value Reference Range Interpretation Comments WBC (test code = WBC) 8.2 3.7-10.4 [facility]rapevineFnjzyawPYAKETCIEB3931-63-40 16:12:00 Test Item Value Reference Range Interpretation Comments MCHC (test code = MCHC) 33.1 32.0-36.0 [facility]rapevineVezknciKKROJYBPFE1713-38-10 16:12:00 Test Item Value Reference Range Interpretation Comments PT (test code = PT) 16.6 s 12.0-14.7 [facility]rapevineItfbpzrTXTKDRUHWG5418-84-91 16:12:00 Test Item Value Reference Range Interpretation Comments INR (test code = INR) 1.32 0.85-1.17 [facility]rapevineUsporijUHKHCGHSYL7733-09-35 16:12:00 Test Item Value Reference Range Interpretation Comments PTT (test code = PTT) 43.0 s 22.9-35.8 [facility]rapevineLxxbzxfSIPXYOMXSI9346-79-33 16:12:00 Test Item Value Reference Range Interpretation Comments Monocytes # (test code 1.6 See_Comment [Aut omated message] The = Monocytes #) system which generated this result tra nsmitted reference range : <=0.8. The reference r gianfranco was not used to int erpret this result as normal/abnormal . [facility]rapevineOtydwmnNSYBMVTDOX5927-03-73 16:12:00 Test Item Value Reference Range Interpretation Comments Eosinophils # (test code 0.3 See_Comment [A utomated message] The = Eosinophils #) system whic h generated this result tra nsmitted reference range : <=0.5. The reference r gianfranco was not used to int erpret this result as normal/abnormal . [facility] GrapevineWcuumobIPULVDHDZZ2803-75-32 16:12:00 Test Item Value Reference Range Interpretation Comments Lymphocytes # (test code = Lymphocytes 1.7 1.0-5.5 #) [facility]rapevineLdgpzxjFHBUXQYOFI3367-91-96 16:12:00 Test Item Value Reference Range Interpretation Comments Basophils (test code = 0.5 See_Comment [Aut omated message] The Basophils) system which ge nerated this result tra nsmitted reference range : <=1.0. The reference r gianfranco was not used to int erpret this result as normal/abnormal . [facility] GrapevineJcrasngWUYOHRZCOK7786-04-84 16:12:00 Test Item Value Reference Range Interpretation Comments Segs-Bands # (test code = Segs-Bands #) 4.5 1.5-8.1 [facility] GrapevineIreleuyPEJPIGHCKE2931-40-01 16:12:00 Test Item Value Reference Range Interpretation Comments Eosinophils (test code = 3.4 See_Comment [A utomated message] The Eosinophils) system which ge nerated this result tra nsmitted reference range : <=4.0. The reference r gianfranco was not used to int erpret this result as normal/abnormal . [facility] ChildrenPjdhxfoTOVBSQOROR5174-30-97 16:12:00 Test Item Value Reference Range Interpretation Comments Segs (test code = Segs) 55.3 45.0-75.0 [facility] DallasSjxaffaOXAZVWIHBJ0878-61-07 16:12:00 Test Item Value Reference Range Interpretation Comments Lymphocytes (test code = Lymphocytes) 21.2 20.0-40.0 [facility] DallasSntuvrsXOSVRPIJVN2435-94-79 16:12:00 Test Item Value Reference Range Interpretation Comments Monocytes (test code = Monocytes) 19.6 2.0-12.0 [facility] ePatientFinder ZIYXONZ0522-49-13 16:12:00 Test Item Value Reference Range Interpretation Comments ABO/Rh (test code = ABO/Rh) O POS [facility] ePatientFinder TTCHRJJ7194-80-31 16:12:00 Test Item Value Reference Range Interpretation Comments Antibody Scrn (test Negative (09/11/16 11:12 code = Antibody Scrn) AM) [facility] [place] ANXMH9252-07-44 16:12:00 Test Item Value Reference Range Interpretation Comments Phosphorus (test code = Phosphorus) 3.3 2.5-4.5 [facility] [place] SIYHM0430-78-78 16:12:00 Test Item Value Reference Range Interpretation Comments Magnesium Lvl (test code = Magnesium 1.6 1.8-2.4 Lvl) [facility] DallasNgaefsaWRTIQGJZAFLY6729-19-41 16:12:00 Test Item Value Reference Range Interpretation Comments AGAP (test code = AGAP) 9.7 10.0-20.0 [facility] DallasYmdxtlvXHEMXOVQWBFP1931-01-11 16:12:00 Test Item Value Reference Range Interpretation Comments eGFR (test code = eGFR) 69 [facility] DallasMaqzpnuUBIAZPNJCBOY7524-35-79 16:12:00 Test Item Value Reference Range Interpretation Comments CO2 (test code = CO2) 28 24-32 [facility] DallasNafzbpfPYHXSKKYHLJQ2719-84-66 16:12:00 Test Item Value Reference Range Interpretation Comments Chloride Lvl (test code = Chloride Lvl) 102 95-109 [facility] DallasBpbssfdGRIYBKFSNGZP1746-43-29 16:12:00 Test Item Value Reference Range Interpretation Comments Potassium Lvl (test code = Potassium 3.7 3.5-5.1 Lvl) [facility]LqrialsIQHTDURQWRCQ5816-69-71 16:12:00 Test Item Value Reference Range Interpretation Comments Calcium Lvl (test code = Calcium Lvl) 8.9 8.5-10.5 [facility] SystemSzkwmvnJEYVTZPSDQWL4833-59-32 16:12:00 Test Item Value Reference Range Interpretation Comments Sodium Lvl (test code = Sodium Lvl) 136 135-145 [facility] SystemEkjqlxtPEAZDFBGXHXX4634-70-20 16:12:00 Test Item Value Reference Range Interpretation Comments Creatinine Lvl (test code = Creatinine 1.06 0.50-1.40 Lvl) [facility] SystemAwuxmulRJEDTGZUOZKL3585-80-16 16:12:00 Test Item Value Reference Range Interpretation Comments BUN (test code = BUN) 15 7-22 [facility] SystemPchrnrtGUWCHEQFRQBJ8226-28-28 16:12:00 Test Item Value Reference Range Interpretation Comments Glucose Lvl (test code = Glucose Lvl) 87 70-99 [facility]rapevineRktgallISJHOIYXLE0356-82-51 16:12:00 Test Item Value Reference Range Interpretation Comments Hct (test code = Hct) 33.1 42.0-54.0 [facility]rapevineFxdmdioCBNLRXNNEG1143-23-10 16:12:00 Test Item Value Reference Range Interpretation Comments Platelet (test code = Platelet) 188 133-450 [facility] GrapevineIhkaznsNIUJLZCEFK8644-15-86 16:12:00 Test Item Value Reference Range Interpretation Comments Hgb (test code = Hgb) 11.0 14.0-18.0 [facility]rapevinePkrzmzhXHLSFWFMCT1595-25-76 16:12:00 Test Item Value Reference Range Interpretation Comments MPV (test code = MPV) 7.5 7.4-10.4 [facility] GrapevineYuapjpvLBSKJPYOVI2129-06-51 16:12:00 Test Item Value Reference Range Interpretation Comments MCV (test code = MCV) 89.2 80.0-94.0 [facility] GrapevineUibrjrcFPDQPKKOGP4912-71-71 16:12:00 Test Item Value Reference Range Interpretation Comments MCH (test code = MCH) 29.5 pg 27.0-31.0 [facility] [place]vineBfvvemmDALXUJVUKQ2933-26-89 16:12:00 Test Item Value Reference Range Interpretation Comments RBC (test code = RBC) 3.72 4.70-6.10 [facility]vineEjvfnkaYTSFKUZNJE8865-51-57 16:12:00 Test Item Value Reference Range Interpretation Comments RDW (test code = RDW) 14.7 11.5-14.5 [facility] [place]rapevineRycmbtdXNRZFUORPX2773-31-14 16:12:00 Test Item Value Reference Range Interpretation Comments WBC (test code = WBC) 8.2 3.7-10.4 [facility] [place]rapevineArnpwmtOHTEGUQRRF2037-96-16 16:12:00 Test Item Value Reference Range Interpretation Comments MCHC (test code = MCHC) 33.1 32.0-36.0 [facility] [place]rapevineWzuaommKBASYQTJYO8558-49-78 16:12:00 Test Item Value Reference Range Interpretation Comments PT (test code = PT) 16.6 s 12.0-14.7 [facility] GrapevineTbfxkumAWISZUSWFL8109-13-36 16:12:00 Test Item Value Reference Range Interpretation Comments INR (test code = INR) 1.32 0.85-1.17 [facility] [place]rapevineYqmseqlMVRJKCLZJP3593-74-68 16:12:00 Test Item Value Reference Range Interpretation Comments PTT (test code = PTT) 43.0 s 22.9-35.8 [facility] [place]rapevineSmszqdzCNKDCEBBOL9145-95-78 16:12:00 Test Item Value Reference Range Interpretation Comments Monocytes # (test code 1.6 See_Comment [Aut omated message] The = Monocytes #) system which generated this result tra nsmitted reference range : <=0.8. The reference r gianfranco was not used to int erpret this result as normal/abnormal . [facility] GrapevineWabxysbXPKUYVESRW6383-63-45 16:12:00 Test Item Value Reference Range Interpretation Comments Eosinophils # (test code 0.3 See_Comment [A utomated message] The = Eosinophils #) system whic h generated this result tra nsmitted reference range : <=0.5. The reference r gianfranco was not used to int erpret this result as normal/abnormal . [facility] GrapevineZdvkoewWSNEYROXPA8638-61-67 16:12:00 Test Item Value Reference Range Interpretation Comments Lymphocytes # (test code = Lymphocytes 1.7 1.0-5.5 #) [facility] GrapevineZtltwkoIHEMRULGZY4493-60-31 16:12:00 Test Item Value Reference Range Interpretation Comments Basophils (test code = 0.5 See_Comment [Aut omated message] The Basophils) system which ge nerated this result tra nsmitted reference range : <=1.0. The reference r gianfranco was not used to int erpret this result as normal/abnormal . [facility]rapevineWgzhzwiDGAYFHBCNA2128-08-88 16:12:00 Test Item Value Reference Range Interpretation Comments Segs-Bands # (test code = Segs-Bands #) 4.5 1.5-8.1 [facility] GrapevineVldeioqLANFLKAKAE3491-32-72 16:12:00 Test Item Value Reference Range Interpretation Comments Eosinophils (test code = 3.4 See_Comment [A utomated message] The Eosinophils) system which ge nerated this result tra nsmitted reference range : <=4.0. The reference r gianfranco was not used to int erpret this result as normal/abnormal . [facility] GrapevineXrnscrqQYBZGUUPCO2965-42-07 16:12:00 Test Item Value Reference Range Interpretation Comments Segs (test code = Segs) 55.3 45.0-75.0 [facility] [place]rapevineDbrpquvDCSQPXXYFP2413-99-93 16:12:00 Test Item Value Reference Range Interpretation Comments Lymphocytes (test code = Lymphocytes) 21.2 20.0-40.0 [facility] [place]rapevineEfygcbsAPZCRDCUHD4135-88-74 16:12:00 Test Item Value Reference Range Interpretation Comments Monocytes (test code = Monocytes) 19.6 2.0-12.0 [facility]2015-01-26 16:27:00 Test Item Value Reference Range Interpretation Comments Calcium Lvl (test code = Calcium Lvl) 9.4 8.5-10.5 [facility]2015-01-26 16:27:00 Test Item Value Reference Range Interpretation Comments CO2 (test code = CO2) 26 24-32 [facility]2015-01-26 16:27:00 Test Item Value Reference Range Interpretation Comments eGFR (test code = eGFR) 40 [facility]2015-01-26 16:27:00 Test Item Value Reference Range Interpretation Comments BUN (test code = BUN) 45 7-22 [facility]2015-01-26 16:27:00 Test Item Value Reference Range Interpretation Comments Glucose Lvl (test code = Glucose Lvl) 100 70-99 [facility]2015-01-26 16:27:00 Test Item Value Reference Range Interpretation Comments Potassium Lvl (test code = Potassium 4.4 3.5-5.1 Lvl) [facility]2015-01-26 16:27:00 Test Item Value Reference Range Interpretation Comments Chloride Lvl (test code = Chloride Lvl) 106 95-109 [facility]2015-01-26 16:27:00 Test Item Value Reference Range Interpretation Comments Creatinine Lvl (test code = Creatinine 1.7 0.5-1.4 Lvl) [facility]2015-01-26 16:27:00 Test Item Value Reference Range Interpretation Comments Sodium Lvl (test code = Sodium Lvl) 139 135-145 [facility]2015-01-26 16:27:00 Test Item Value Reference Range Interpretation Comments AGAP (test code = AGAP) 11.4 10.0-20.0 [facility] GrapevineLhzzgxbBBXMWGLXNE4479-73-21 16:27:00 Test Item Value Reference Range Interpretation Comments MPV (test code = MPV) 7.3 7.4-10.4 [facility] GrapevineRdtjtgkLTDNQVONSC2255-11-89 16:27:00 Test Item Value Reference Range Interpretation Comments MCHC (test code = MCHC) 33.9 32.0-36.0 [facility] GrapevineNgkdaaxIKGAHHZQQY9761-59-40 16:27:00 Test Item Value Reference Range Interpretation Comments Platelet (test code = Platelet) 198 133-450 [facility] GrapevineQbanpmdETGXEOLDBA6490-47-61 16:27:00 Test Item Value Reference Range Interpretation Comments Hgb (test code = Hgb) 13.7 14.0-18.0 [facility] GrapevineLfqbheqVDPNAQGHBG8071-51-63 16:27:00 Test Item Value Reference Range Interpretation Comments RDW (test code = RDW) 14.6 11.5-14.5 [facility] GrapevineAawjcmsMZDDGWQHEE9989-89-72 16:27:00 Test Item Value Reference Range Interpretation Comments Hct (test code = Hct) 40.4 42.0-54.0 [facility] GrapevineYwdgcefEQGRSWZRXT4985-28-51 16:27:00 Test Item Value Reference Range Interpretation Comments MCH (test code = MCH) 31.5 pg 27.0-31.0 [facility] GrapevineDzcdqvjRYLDYEWNAS3804-24-83 16:27:00 Test Item Value Reference Range Interpretation Comments MCV (test code = MCV) 92.8 80.0-94.0 [facility] [place]vineUrlbjjfDCHLLWVYTS8037-28-58 16:27:00 Test Item Value Reference Range Interpretation Comments RBC (test code = RBC) 4.35 4.70-6.10 [facility] [place]rapevineDbtqytnDLGRWXWBFW4076-67-71 16:27:00 Test Item Value Reference Range Interpretation Comments WBC (test code = WBC) 9.4 3.7-10.4 [facility] GrapevineCntubqyNIOMUDXCLB4857-71-78 16:27:00 Test Item Value Reference Range Interpretation Comments Eosinophils (test code = 2.4 See_Comment [A utomated message] The Eosinophils) system which ge nerated this result tra nsmitted reference range : <=4.0. The reference r gianfranco was not used to int erpret this result as normal/abnormal . [facility] GrapevineAenmbpnKNSCWADAXP8777-98-20 16:27:00 Test Item Value Reference Range Interpretation Comments Monocytes (test code = Monocytes) 14.6 2.0-12.0 [facility] [place]rapevineZqwbuwaXBPSRGRWSD9746-92-15 16:27:00 Test Item Value Reference Range Interpretation Comments Segs-Bands # (test code = Segs-Bands #) 5.5 1.5-8.1 [facility] GrapevineJbcbkinSOESFDNDJH5758-00-82 16:27:00 Test Item Value Reference Range Interpretation Comments Lymphocytes (test code = Lymphocytes) 24.1 20.0-40.0 [place] 509945-01-26 16:27:00 Test Item Value Reference Range Interpretation Comments Segs (test code = Segs) 58.6 45.0-75.0 [facility] GrapevineFczhwpuOAUDEVORGY4372-47-04 16:27:00 Test Item Value Reference Range Interpretation Comments Basophils # (test code 0.0 See_Comment [Aut omated message] The = Basophils #) system which generated this result tra nsmitted reference range : <=0.2. The reference r gianfranco was not used to int erpret this result as normal/abnormal . [facility] [place]rapevineAewmnhrWDRNBZJYQQ8636-03-96 16:27:00 Test Item Value Reference Range Interpretation Comments Eosinophils # (test code 0.2 See_Comment [A utomated message] The = Eosinophils #) system whic h generated this result tra nsmitted reference range : <=0.5. The reference r gianfranco was not used to int erpret this result as normal/abnormal . [facility]rapevineJhvaybfWEBJEOORQN2847-53-01 16:27:00 Test Item Value Reference Range Interpretation Comments Basophils (test code = 0.3 See_Comment [Aut omated message] The Basophils) system which ge nerated this result tra nsmitted reference range : <=1.0. The reference r gianfranco was not used to int erpret this result as normal/abnormal . [facility] GrapevineMtulkgyISLTVNOFTC1186-89-55 16:27:00 Test Item Value Reference Range Interpretation Comments Monocytes # (test code 1.4 See_Comment [Aut omated message] The = Monocytes #) system which generated this result tra nsmitted reference range : <=0.8. The reference r gianfranco was not used to int erpret this result as normal/abnormal . [facility] [place]rapevineEmknupzZEABJYUXMP6402-21-05 16:27:00 Test Item Value Reference Range Interpretation Comments Lymphocytes # (test code = Lymphocytes 2.3 1.0-5.5 #) [facility]2015-01-26 16:27:00 Test Item Value Reference Range Interpretation Comments Calcium Lvl (test code = Calcium Lvl) 9.4 8.5-10.5 [facility]2015-01-26 16:27:00 Test Item Value Reference Range Interpretation Comments CO2 (test code = CO2) 26 24-32 [facility]2015-01-26 16:27:00 Test Item Value Reference Range Interpretation Comments eGFR (test code = eGFR) 40 [facility]2015-01-26 16:27:00 Test Item Value Reference Range Interpretation Comments BUN (test code = BUN) 45 7-22 [facility]2015-01-26 16:27:00 Test Item Value Reference Range Interpretation Comments Glucose Lvl (test code = Glucose Lvl) 100 70-99 [facility]2015-01-26 16:27:00 Test Item Value Reference Range Interpretation Comments Potassium Lvl (test code = Potassium 4.4 3.5-5.1 Lvl) [facility]2015-01-26 16:27:00 Test Item Value Reference Range Interpretation Comments Chloride Lvl (test code = Chloride Lvl) 106 95-109 [facility]2015-01-26 16:27:00 Test Item Value Reference Range Interpretation Comments Creatinine Lvl (test code = Creatinine 1.7 0.5-1.4 Lvl) [facility]2015-01-26 16:27:00 Test Item Value Reference Range Interpretation Comments Sodium Lvl (test code = Sodium Lvl) 139 135-145 [facility]2015-01-26 16:27:00 Test Item Value Reference Range Interpretation Comments AGAP (test code = AGAP) 11.4 10.0-20.0 [facility] GrapevineErrcfitFMGMZWUGTI5116-76-66 16:27:00 Test Item Value Reference Range Interpretation Comments MPV (test code = MPV) 7.3 7.4-10.4 [facility] GrapevineTuezoacKLNKLQGCOX3409-95-44 16:27:00 Test Item Value Reference Range Interpretation Comments MCHC (test code = MCHC) 33.9 32.0-36.0 [facility] GrapevinePpsiccmSIAOKJAVSR1279-29-54 16:27:00 Test Item Value Reference Range Interpretation Comments Platelet (test code = Platelet) 198 133-450 [facility] GrapevineReshzggDYRXMQSXQP2265-78-37 16:27:00 Test Item Value Reference Range Interpretation Comments Hgb (test code = Hgb) 13.7 14.0-18.0 [facility] GrapevineCzvuvenUUXHGMRBCR9540-86-06 16:27:00 Test Item Value Reference Range Interpretation Comments RDW (test code = RDW) 14.6 11.5-14.5 [facility] GrapevineSabdzmgMZZNUYBIJR4209-56-76 16:27:00 Test Item Value Reference Range Interpretation Comments Hct (test code = Hct) 40.4 42.0-54.0 [facility] GrapevineGbilpgeEWKHXFGEJG5765-98-87 16:27:00 Test Item Value Reference Range Interpretation Comments MCH (test code = MCH) 31.5 pg 27.0-31.0 [facility] GrapevineWdlcdubWRFHVBYIIZ9437-97-85 16:27:00 Test Item Value Reference Range Interpretation Comments MCV (test code = MCV) 92.8 80.0-94.0 [facility] GrapevineIwwmtsoJOOJGKVDGN8734-42-95 16:27:00 Test Item Value Reference Range Interpretation Comments RBC (test code = RBC) 4.35 4.70-6.10 [facility] GrapevineLwjliqiVCFLWBECRP0663-91-19 16:27:00 Test Item Value Reference Range Interpretation Comments WBC (test code = WBC) 9.4 3.7-10.4 [facility] GrapevineWscjmnoMTKEWQOSER7461-34-84 16:27:00 Test Item Value Reference Range Interpretation Comments Eosinophils (test code = 2.4 See_Comment [A utomated message] The Eosinophils) system which ge nerated this result tra nsmitted reference range : <=4.0. The reference r gianfranco was not used to int erpret this result as normal/abnormal . [facility] GrapevineGefaonwQNWZAGIXZE6163-21-15 16:27:00 Test Item Value Reference Range Interpretation Comments Monocytes (test code = Monocytes) 14.6 2.0-12.0 [facility] GrapevineNlqujseNOKRXWOKON3463-58-13 16:27:00 Test Item Value Reference Range Interpretation Comments Segs-Bands # (test code = Segs-Bands #) 5.5 1.5-8.1 [facility] [place]rapevineHscxkgtFQOIRSXCLZ3594-30-36 16:27:00 Test Item Value Reference Range Interpretation Comments Lymphocytes (test code = Lymphocytes) 24.1 20.0-40.0 [facility] [place]rapevineQgtdcxeQBGWDSUJCN7898-90-73 16:27:00 Test Item Value Reference Range Interpretation Comments Segs (test code = Segs) 58.6 45.0-75.0 [facility] GrapevineBjewsyzIKEGNDTDXC5431-70-95 16:27:00 Test Item Value Reference Range Interpretation Comments Basophils # (test code 0.0 See_Comment [Aut omated message] The = Basophils #) system which generated this result tra nsmitted reference range : <=0.2. The reference r gianfranco was not used to int erpret this result as normal/abnormal . [facility] GrapevineNseotozBJJSGEEYSR6818-54-42 16:27:00 Test Item Value Reference Range Interpretation Comments Eosinophils # (test code 0.2 See_Comment [A utomated message] The = Eosinophils #) system whic h generated this result tra nsmitted reference range : <=0.5. The reference r gianfranco was not used to int erpret this result as normal/abnormal . [facility] GrapevineKqpmdfhRFNYCLVUUE5691-14-92 16:27:00 Test Item Value Reference Range Interpretation Comments Basophils (test code = 0.3 See_Comment [Aut omated message] The Basophils) system which ge nerated this result tra nsmitted reference range : <=1.0. The reference r gianfranco was not used to int erpret this result as normal/abnormal . [facility] GrapevineIggqdutTKSITVLOZF7020-36-78 16:27:00 Test Item Value Reference Range Interpretation Comments Monocytes # (test code 1.4 See_Comment [Aut omated message] The = Monocytes #) system which generated this result tra nsmitted reference range : <=0.8. The reference r gianfranco was not used to int erpret this result as normal/abnormal . [facility] [place]rapevineLgdkyrdUFPQPBVJUD5184-25-26 16:27:00 Test Item Value Reference Range Interpretation Comments Lymphocytes # (test code = Lymphocytes 2.3 1.0-5.5 #) [facility]2015-01-26 16:27:00 Test Item Value Reference Range Interpretation Comments Calcium Lvl (test code = Calcium Lvl) 9.4 8.5-10.5 [facility]2015-01-26 16:27:00 Test Item Value Reference Range Interpretation Comments CO2 (test code = CO2) 26 24-32 [place] 778285-01-26 16:27:00 Test Item Value Reference Range Interpretation Comments eGFR (test code = eGFR) 40 [facility]2015-01-26 16:27:00 Test Item Value Reference Range Interpretation Comments BUN (test code = BUN) 45 7-22 [facility]2015-01-26 16:27:00 Test Item Value Reference Range Interpretation Comments Glucose Lvl (test code = Glucose Lvl) 100 70-99 [facility]2015-01-26 16:27:00 Test Item Value Reference Range Interpretation Comments Potassium Lvl (test code = Potassium 4.4 3.5-5.1 Lvl) [facility]2015-01-26 16:27:00 Test Item Value Reference Range Interpretation Comments Chloride Lvl (test code = Chloride Lvl) 106 95-109 [facility]2015-01-26 16:27:00 Test Item Value Reference Range Interpretation Comments Creatinine Lvl (test code = Creatinine 1.7 0.5-1.4 Lvl) [facility]2015-01-26 16:27:00 Test Item Value Reference Range Interpretation Comments Sodium Lvl (test code = Sodium Lvl) 139 135-145 [place] 778285-01-26 16:27:00 Test Item Value Reference Range Interpretation Comments AGAP (test code = AGAP) 11.4 10.0-20.0 [facility] GrapevineZsmjdopMGFNMOXVHL4206-18-02 16:27:00 Test Item Value Reference Range Interpretation Comments MPV (test code = MPV) 7.3 7.4-10.4 [facility] GrapevineHzekeotSWAGXZWRTX8105-32-74 16:27:00 Test Item Value Reference Range Interpretation Comments MCHC (test code = MCHC) 33.9 32.0-36.0 [facility] GrapevineMlbaefbRYSQWJQKDZ5692-62-78 16:27:00 Test Item Value Reference Range Interpretation Comments Platelet (test code = Platelet) 198 133-450 [facility] GrapevineFiqerpuAUMMAGAGVD5255-75-91 16:27:00 Test Item Value Reference Range Interpretation Comments Hgb (test code = Hgb) 13.7 14.0-18.0 [facility] GrapevineSlyglitRNAUYGTEGW0340-39-71 16:27:00 Test Item Value Reference Range Interpretation Comments RDW (test code = RDW) 14.6 11.5-14.5 [facility] GrapevineUflnxlyVQPOBGKOUY0942-51-34 16:27:00 Test Item Value Reference Range Interpretation Comments Hct (test code = Hct) 40.4 42.0-54.0 [facility] GrapevineReyqwbsLUGDFWDARO4928-08-27 16:27:00 Test Item Value Reference Range Interpretation Comments MCH (test code = MCH) 31.5 pg 27.0-31.0 [facility] [place]rapevineOgyqjscLYYQVUZMUF8880-43-34 16:27:00 Test Item Value Reference Range Interpretation Comments MCV (test code = MCV) 92.8 80.0-94.0 [facility] [place]rapevineTwoczesHADIVDYEXD0563-51-57 16:27:00 Test Item Value Reference Range Interpretation Comments RBC (test code = RBC) 4.35 4.70-6.10 [facility]rapevineYzdvqeyQMKZMAKHJX8393-59-11 16:27:00 Test Item Value Reference Range Interpretation Comments WBC (test code = WBC) 9.4 3.7-10.4 [facility] GrapevineJmqghwdTUCHYFJYGY0442-41-87 16:27:00 Test Item Value Reference Range Interpretation Comments Eosinophils (test code = 2.4 See_Comment [A utomated message] The Eosinophils) system which ge nerated this result tra nsmitted reference range : <=4.0. The reference r gianfranco was not used to int erpret this result as normal/abnormal . [facility]rapevineKdahvvpVCTEDJZIFP8404-07-64 16:27:00 Test Item Value Reference Range Interpretation Comments Monocytes (test code = Monocytes) 14.6 2.0-12.0 [facility] [place]rapevineKpgwnamHYVLROGSRC6482-45-46 16:27:00 Test Item Value Reference Range Interpretation Comments Segs-Bands # (test code = Segs-Bands #) 5.5 1.5-8.1 [facility] [place]rapevineRgbsdnlADBSDTQXIX7664-34-63 16:27:00 Test Item Value Reference Range Interpretation Comments Lymphocytes (test code = Lymphocytes) 24.1 20.0-40.0 [facility] [place]rapevineNtdxjvvHPQTAAPXWL4969-21-06 16:27:00 Test Item Value Reference Range Interpretation Comments Segs (test code = Segs) 58.6 45.0-75.0 [facility] [place]rapevineFxcqrgmAPXREFTJYH5975-17-78 16:27:00 Test Item Value Reference Range Interpretation Comments Basophils # (test code 0.0 See_Comment [Aut omated message] The = Basophils #) system which generated this result tra nsmitted reference range : <=0.2. The reference r gianfranco was not used to int erpret this result as normal/abnormal . [facility]rapevineRwttwrpREVYQQXOYA1560-28-08 16:27:00 Test Item Value Reference Range Interpretation Comments Eosinophils # (test code 0.2 See_Comment [A utomated message] The = Eosinophils #) system whic h generated this result tra nsmitted reference range : <=0.5. The reference r gianfranco was not used to int erpret this result as normal/abnormal . [facility]rapevineCgweqnqNREMVTRMPH2147-03-24 16:27:00 Test Item Value Reference Range Interpretation Comments Basophils (test code = 0.3 See_Comment [Aut omated message] The Basophils) system which ge nerated this result tra nsmitted reference range : <=1.0. The reference r gianfranco was not used to int erpret this result as normal/abnormal . [facility]rapevineZszesywEECDJFYDPR4299-55-84 16:27:00 Test Item Value Reference Range Interpretation Comments Monocytes # (test code 1.4 See_Comment [Aut omated message] The = Monocytes #) system which generated this result tra nsmitted reference range : <=0.8. The reference r gianfranco was not used to int erpret this result as normal/abnormal . [facility]rapevineOunmcxuSUFOFSKCQK7727-94-13 16:27:00 Test Item Value Reference Range Interpretation Comments Lymphocytes # (test code = Lymphocytes 2.3 1.0-5.5 #) [facility]2015-01-26 16:27:00 Test Item Value Reference Range Interpretation Comments Calcium Lvl (test code = Calcium Lvl) 9.4 8.5-10.5 [facility]2015-01-26 16:27:00 Test Item Value Reference Range Interpretation Comments CO2 (test code = CO2) 26 24-32 [facility]2015-01-26 16:27:00 Test Item Value Reference Range Interpretation Comments eGFR (test code = eGFR) 40 [facility]2015-01-26 16:27:00 Test Item Value Reference Range Interpretation Comments BUN (test code = BUN) 45 7-22 [facility]2015-01-26 16:27:00 Test Item Value Reference Range Interpretation Comments Glucose Lvl (test code = Glucose Lvl) 100 70-99 [facility]2015-01-26 16:27:00 Test Item Value Reference Range Interpretation Comments Potassium Lvl (test code = Potassium 4.4 3.5-5.1 Lvl) [facility]2015-01-26 16:27:00 Test Item Value Reference Range Interpretation Comments Chloride Lvl (test code = Chloride Lvl) 106 95-109 [facility]2015-01-26 16:27:00 Test Item Value Reference Range Interpretation Comments Creatinine Lvl (test code = Creatinine 1.7 0.5-1.4 Lvl) [facility]2015-01-26 16:27:00 Test Item Value Reference Range Interpretation Comments Sodium Lvl (test code = Sodium Lvl) 139 135-145 [facility]2015-01-26 16:27:00 Test Item Value Reference Range Interpretation Comments AGAP (test code = AGAP) 11.4 10.0-20.0 [facility] [place]rapevineKkongstLRTBMQMICU7118-69-24 16:27:00 Test Item Value Reference Range Interpretation Comments MPV (test code = MPV) 7.3 7.4-10.4 [facility] [place]rapevineOnnipflDFAXMCKBOS4395-31-63 16:27:00 Test Item Value Reference Range Interpretation Comments MCHC (test code = MCHC) 33.9 32.0-36.0 [facility] GrapevineQbsalrrOFUBOOKASD7878-38-96 16:27:00 Test Item Value Reference Range Interpretation Comments Platelet (test code = Platelet) 198 133-450 [facility]vineQgvbimqGMEEQWJAUT7621-14-29 16:27:00 Test Item Value Reference Range Interpretation Comments Hgb (test code = Hgb) 13.7 14.0-18.0 [facility]vineNmxkbdaGGEFUIUKKI6672-47-22 16:27:00 Test Item Value Reference Range Interpretation Comments RDW (test code = RDW) 14.6 11.5-14.5 [facility]vineXkyyfxbQEHBLNDUWX2469-08-27 16:27:00 Test Item Value Reference Range Interpretation Comments Hct (test code = Hct) 40.4 42.0-54.0 [facility]vineNuzrpeyZKXMMTLZUO2018-94-45 16:27:00 Test Item Value Reference Range Interpretation Comments MCH (test code = MCH) 31.5 pg 27.0-31.0 [facility]vinePllvrgtZHYYCPUHWO0934-42-30 16:27:00 Test Item Value Reference Range Interpretation Comments MCV (test code = MCV) 92.8 80.0-94.0 [facility]vineXfgjosjVJEBXNJBKL7967-81-21 16:27:00 Test Item Value Reference Range Interpretation Comments RBC (test code = RBC) 4.35 4.70-6.10 [facility]vineIdminriWSODOYZRQU2254-36-90 16:27:00 Test Item Value Reference Range Interpretation Comments WBC (test code = WBC) 9.4 3.7-10.4 [facility]vineEjmwctaCSODBMGXEG4839-96-65 16:27:00 Test Item Value Reference Range Interpretation Comments Eosinophils (test code = 2.4 See_Comment [A utomated message] The Eosinophils) system which ge nerated this result tra nsmitted reference range : <=4.0. The reference r gianfranco was not used to int erpret this result as normal/abnormal . [facility]vineRfhpgzuMQTOFJSKYQ9539-06-46 16:27:00 Test Item Value Reference Range Interpretation Comments Monocytes (test code = Monocytes) 14.6 2.0-12.0 [facility]vineSeynyrySHYOEROEPC4928-78-28 16:27:00 Test Item Value Reference Range Interpretation Comments Segs-Bands # (test code = Segs-Bands #) 5.5 1.5-8.1 [facility]vineSuwelvxWOBRODLKPQ3718-67-08 16:27:00 Test Item Value Reference Range Interpretation Comments Lymphocytes (test code = Lymphocytes) 24.1 20.0-40.0 [facility]vineWqqyktuETHSDPMXIF2250-21-97 16:27:00 Test Item Value Reference Range Interpretation Comments Segs (test code = Segs) 58.6 45.0-75.0 [facility]vineZgencmsRWVJNOEHZX5409-21-87 16:27:00 Test Item Value Reference Range Interpretation Comments Basophils # (test code 0.0 See_Comment [Aut omated message] The = Basophils #) system which generated this result tra nsmitted reference range : <=0.2. The reference r gianfranco was not used to int erpret this result as normal/abnormal . [facility]vineGyjddwaMWLDDMTLRY2000-45-68 16:27:00 Test Item Value Reference Range Interpretation Comments Eosinophils # (test code 0.2 See_Comment [A utomated message] The = Eosinophils #) system whic h generated this result tra nsmitted reference range : <=0.5. The reference r gianfranco was not used to int erpret this result as normal/abnormal . [facility]vineFvvxksqNEFQTDQPXV3175-11-85 16:27:00 Test Item Value Reference Range Interpretation Comments Basophils (test code = 0.3 See_Comment [Aut omated message] The Basophils) system which ge nerated this result tra nsmitted reference range : <=1.0. The reference r gianfranco was not used to int erpret this result as normal/abnormal . [facility]vineQnxzrlvZGBGHUIDPR1163-44-49 16:27:00 Test Item Value Reference Range Interpretation Comments Monocytes # (test code 1.4 See_Comment [Aut omated message] The = Monocytes #) system which generated this result tra nsmitted reference range : <=0.8. The reference r gianfranco was not used to int erpret this result as normal/abnormal . [facility]vineUnyksyjMOUZXGARMY2896-77-57 16:27:00 Test Item Value Reference Range Interpretation Comments Lymphocytes # (test code = Lymphocytes 2.3 1.0-5.5 #) [facility]2015-01-26 16:27:00 Test Item Value Reference Range Interpretation Comments Calcium Lvl (test code = Calcium Lvl) 9.4 8.5-10.5 [facility]2015-01-26 16:27:00 Test Item Value Reference Range Interpretation Comments CO2 (test code = CO2) 26 24-32 [facility]2015-01-26 16:27:00 Test Item Value Reference Range Interpretation Comments eGFR (test code = eGFR) 40 [facility]2015-01-26 16:27:00 Test Item Value Reference Range Interpretation Comments BUN (test code = BUN) 45 7-22 [facility]2015-01-26 16:27:00 Test Item Value Reference Range Interpretation Comments Glucose Lvl (test code = Glucose Lvl) 100 70-99 [facility]2015-01-26 16:27:00 Test Item Value Reference Range Interpretation Comments Potassium Lvl (test code = Potassium 4.4 3.5-5.1 Lvl) [facility]2015-01-26 16:27:00 Test Item Value Reference Range Interpretation Comments Chloride Lvl (test code = Chloride Lvl) 106 95-109 [facility]2015-01-26 16:27:00 Test Item Value Reference Range Interpretation Comments Creatinine Lvl (test code = Creatinine 1.7 0.5-1.4 Lvl) [facility]2015-01-26 16:27:00 Test Item Value Reference Range Interpretation Comments Sodium Lvl (test code = Sodium Lvl) 139 135-145 [facility]2015-01-26 16:27:00 Test Item Value Reference Range Interpretation Comments AGAP (test code = AGAP) 11.4 10.0-20.0 [facility]vineQgkocnvVAWXTGQYDT8493-78-34 16:27:00 Test Item Value Reference Range Interpretation Comments MPV (test code = MPV) 7.3 7.4-10.4 [facility]vineVbzxykbMOPCERPVWI4479-99-35 16:27:00 Test Item Value Reference Range Interpretation Comments MCHC (test code = MCHC) 33.9 32.0-36.0 [facility]vineJtkkjtiQAGYKTCWFZ9429-38-67 16:27:00 Test Item Value Reference Range Interpretation Comments Platelet (test code = Platelet) 198 133-450 [facility]vinePwvhhrgJZYYFGOUWQ1090-79-12 16:27:00 Test Item Value Reference Range Interpretation Comments Hgb (test code = Hgb) 13.7 14.0-18.0 [facility]vineJpsilszDJPCEIMMKU4578-55-94 16:27:00 Test Item Value Reference Range Interpretation Comments RDW (test code = RDW) 14.6 11.5-14.5 [facility]vinePobnjmkQWSKXHFWHT1128-45-22 16:27:00 Test Item Value Reference Range Interpretation Comments Hct (test code = Hct) 40.4 42.0-54.0 [facility]vineAnxwzfwVKXPWONPRF8516-72-04 16:27:00 Test Item Value Reference Range Interpretation Comments MCH (test code = MCH) 31.5 pg 27.0-31.0 [facility]vineEeijipqFOYDTGPJPR4280-81-75 16:27:00 Test Item Value Reference Range Interpretation Comments MCV (test code = MCV) 92.8 80.0-94.0 [facility]vineShrkalqGHMSEMJBMS4110-45-06 16:27:00 Test Item Value Reference Range Interpretation Comments RBC (test code = RBC) 4.35 4.70-6.10 [facility]vineFtkedlsHPHCEUYPRX1288-02-08 16:27:00 Test Item Value Reference Range Interpretation Comments WBC (test code = WBC) 9.4 3.7-10.4 [facility]vineQhusziyXKHBOWUDKZ6818-16-65 16:27:00 Test Item Value Reference Range Interpretation Comments Eosinophils (test code = 2.4 See_Comment [A utomated message] The Eosinophils) system which ge nerated this result tra nsmitted reference range : <=4.0. The reference r gianfranco was not used to int erpret this result as normal/abnormal . [facility]vineQyymomsASWEFVLNAN7845-79-78 16:27:00 Test Item Value Reference Range Interpretation Comments Monocytes (test code = Monocytes) 14.6 2.0-12.0 [facility]vineRojuusuEYAGJKRNDU3200-09-97 16:27:00 Test Item Value Reference Range Interpretation Comments Segs-Bands # (test code = Segs-Bands #) 5.5 1.5-8.1 [facility]vineNlhkkwdBSIASLGOXY6125-43-79 16:27:00 Test Item Value Reference Range Interpretation Comments Lymphocytes (test code = Lymphocytes) 24.1 20.0-40.0 [facility]vineZuksferYRTCZMUCYU8994-42-10 16:27:00 Test Item Value Reference Range Interpretation Comments Segs (test code = Segs) 58.6 45.0-75.0 [facility]vineUcxbnxyIKYOIRDSFD6410-07-41 16:27:00 Test Item Value Reference Range Interpretation Comments Basophils # (test code 0.0 See_Comment [Aut omated message] The = Basophils #) system which generated this result tra nsmitted reference range : <=0.2. The reference r gianfranco was not used to int erpret this result as normal/abnormal . [facility]vineJgsufdpYBHIZRYQHI2147-41-07 16:27:00 Test Item Value Reference Range Interpretation Comments Eosinophils # (test code 0.2 See_Comment [A utomated message] The = Eosinophils #) system whic h generated this result tra nsmitted reference range : <=0.5. The reference r gianfranco was not used to int erpret this result as normal/abnormal . [facility]vineCcjhhfpEXWDDHJBDI6614-41-99 16:27:00 Test Item Value Reference Range Interpretation Comments Basophils (test code = 0.3 See_Comment [Aut omated message] The Basophils) system which ge nerated this result tra nsmitted reference range : <=1.0. The reference r gianfranco was not used to int erpret this result as normal/abnormal . [facility]vineEsisfiqDSACBLRXKV2978-07-73 16:27:00 Test Item Value Reference Range Interpretation Comments Monocytes # (test code 1.4 See_Comment [Aut omated message] The = Monocytes #) system which generated this result tra nsmitted reference range : <=0.8. The reference r gianfranco was not used to int erpret this result as normal/abnormal . [facility]vineUnubtpeLPOZAWPBVB9883-62-83 16:27:00 Test Item Value Reference Range Interpretation Comments Lymphocytes # (test code = Lymphocytes 2.3 1.0-5.5 #) [facility]2015-01-26 16:27:00 Test Item Value Reference Range Interpretation Comments Calcium Lvl (test code = Calcium Lvl) 9.4 8.5-10.5 [facility]2015-01-26 16:27:00 Test Item Value Reference Range Interpretation Comments CO2 (test code = CO2) 26 24-32 [facility]2015-01-26 16:27:00 Test Item Value Reference Range Interpretation Comments eGFR (test code = eGFR) 40 [facility]2015-01-26 16:27:00 Test Item Value Reference Range Interpretation Comments BUN (test code = BUN) 45 7-22 [facility]2015-01-26 16:27:00 Test Item Value Reference Range Interpretation Comments Glucose Lvl (test code = Glucose Lvl) 100 70-99 [facility]2015-01-26 16:27:00 Test Item Value Reference Range Interpretation Comments Potassium Lvl (test code = Potassium 4.4 3.5-5.1 Lvl) [facility]2015-01-26 16:27:00 Test Item Value Reference Range Interpretation Comments Chloride Lvl (test code = Chloride Lvl) 106 95-109 [facility]2015-01-26 16:27:00 Test Item Value Reference Range Interpretation Comments Creatinine Lvl (test code = Creatinine 1.7 0.5-1.4 Lvl) [facility]2015-01-26 16:27:00 Test Item Value Reference Range Interpretation Comments Sodium Lvl (test code = Sodium Lvl) 139 135-145 [facility]2015-01-26 16:27:00 Test Item Value Reference Range Interpretation Comments AGAP (test code = AGAP) 11.4 10.0-20.0 [facility]vineVjcfwhvKQVQXKRMOB5119-38-03 16:27:00 Test Item Value Reference Range Interpretation Comments MPV (test code = MPV) 7.3 7.4-10.4 [facility]vineLkxhglxKIARGWFYPL2231-36-69 16:27:00 Test Item Value Reference Range Interpretation Comments MCHC (test code = MCHC) 33.9 32.0-36.0 [facility]vineJthzqalLLEGBDFWFD7544-84-50 16:27:00 Test Item Value Reference Range Interpretation Comments Platelet (test code = Platelet) 198 133-450 [facility]vineMdmevaaUXHQQQRAGL6064-63-56 16:27:00 Test Item Value Reference Range Interpretation Comments Hgb (test code = Hgb) 13.7 14.0-18.0 [facility]vineDhalysmKGPTCGBNNM1745-78-83 16:27:00 Test Item Value Reference Range Interpretation Comments RDW (test code = RDW) 14.6 11.5-14.5 [facility]vineUbwgxgwJJLETEYCYF0854-45-46 16:27:00 Test Item Value Reference Range Interpretation Comments Hct (test code = Hct) 40.4 42.0-54.0 [facility]vineAwrgqieXABJGGRACF4311-68-10 16:27:00 Test Item Value Reference Range Interpretation Comments MCH (test code = MCH) 31.5 pg 27.0-31.0 [facility]vineKlgtrciXVAAUARYGV6745-80-89 16:27:00 Test Item Value Reference Range Interpretation Comments MCV (test code = MCV) 92.8 80.0-94.0 [facility]vineBqhavpbLYVSGWBZHW1395-98-96 16:27:00 Test Item Value Reference Range Interpretation Comments RBC (test code = RBC) 4.35 4.70-6.10 [facility]vineVsshplqTMNKHGNXOQ9669-23-92 16:27:00 Test Item Value Reference Range Interpretation Comments WBC (test code = WBC) 9.4 3.7-10.4 [facility]vineRolratuXFFAKJGYWS5260-64-37 16:27:00 Test Item Value Reference Range Interpretation Comments Eosinophils (test code = 2.4 See_Comment [A utomated message] The Eosinophils) system which ge nerated this result tra nsmitted reference range : <=4.0. The reference r gianfranco was not used to int erpret this result as normal/abnormal . [facility]vineBeipzfiYWEKMSDQVY9184-78-26 16:27:00 Test Item Value Reference Range Interpretation Comments Monocytes (test code = Monocytes) 14.6 2.0-12.0 [facility]vineFnnsbudWMXWOZRNXS4811-17-53 16:27:00 Test Item Value Reference Range Interpretation Comments Segs-Bands # (test code = Segs-Bands #) 5.5 1.5-8.1 [facility]vineBunimcnTPUWZBWTNC8462-18-89 16:27:00 Test Item Value Reference Range Interpretation Comments Lymphocytes (test code = Lymphocytes) 24.1 20.0-40.0 [facility]vineQmyekmqIOHIUFODLK3595-33-64 16:27:00 Test Item Value Reference Range Interpretation Comments Segs (test code = Segs) 58.6 45.0-75.0 [facility]vineSsjyrpoQUOTLPRKXE0223-99-59 16:27:00 Test Item Value Reference Range Interpretation Comments Basophils # (test code 0.0 See_Comment [Aut omated message] The = Basophils #) system which generated this result tra nsmitted reference range : <=0.2. The reference r gianfranco was not used to int erpret this result as normal/abnormal . [facility]vineGkubmloDOSSEMRVYL2340-87-67 16:27:00 Test Item Value Reference Range Interpretation Comments Eosinophils # (test code 0.2 See_Comment [A utomated message] The = Eosinophils #) system whic h generated this result tra nsmitted reference range : <=0.5. The reference r gianfranco was not used to int erpret this result as normal/abnormal . [facility]vineGcowknqLIILXDZQLG6739-51-74 16:27:00 Test Item Value Reference Range Interpretation Comments Basophils (test code = 0.3 See_Comment [Aut omated message] The Basophils) system which ge nerated this result tra nsmitted reference range : <=1.0. The reference r gianfranco was not used to int erpret this result as normal/abnormal . [facility]vineYbexpjkTFOQSZCVNQ7809-36-17 16:27:00 Test Item Value Reference Range Interpretation Comments Monocytes # (test code 1.4 See_Comment [Aut omated message] The = Monocytes #) system which generated this result tra nsmitted reference range : <=0.8. The reference r gianfranco was not used to int erpret this result as normal/abnormal . [facility]vineUdbujgkUPMXWRZCQF3119-51-74 16:27:00 Test Item Value Reference Range Interpretation Comments Lymphocytes # (test code = Lymphocytes 2.3 1.0-5.5 #) [facility]2015-01-26 16:27:00 Test Item Value Reference Range Interpretation Comments Calcium Lvl (test code = Calcium Lvl) 9.4 8.5-10.5 [facility]2015-01-26 16:27:00 Test Item Value Reference Range Interpretation Comments CO2 (test code = CO2) 26 24-32 [facility]2015-01-26 16:27:00 Test Item Value Reference Range Interpretation Comments eGFR (test code = eGFR) 40 [facility]2015-01-26 16:27:00 Test Item Value Reference Range Interpretation Comments BUN (test code = BUN) 45 7-22 [facility]2015-01-26 16:27:00 Test Item Value Reference Range Interpretation Comments Glucose Lvl (test code = Glucose Lvl) 100 70-99 [facility]2015-01-26 16:27:00 Test Item Value Reference Range Interpretation Comments Potassium Lvl (test code = Potassium 4.4 3.5-5.1 Lvl) [facility]2015-01-26 16:27:00 Test Item Value Reference Range Interpretation Comments Chloride Lvl (test code = Chloride Lvl) 106 95-109 [facility]2015-01-26 16:27:00 Test Item Value Reference Range Interpretation Comments Creatinine Lvl (test code = Creatinine 1.7 0.5-1.4 Lvl) [facility]2015-01-26 16:27:00 Test Item Value Reference Range Interpretation Comments Sodium Lvl (test code = Sodium Lvl) 139 135-145 [facility]2015-01-26 16:27:00 Test Item Value Reference Range Interpretation Comments AGAP (test code = AGAP) 11.4 10.0-20.0 [facility]vineGzxrrrfUGVXWQYQBO7463-20-51 16:27:00 Test Item Value Reference Range Interpretation Comments MPV (test code = MPV) 7.3 7.4-10.4 [facility]vineGngawddLKCMPCXISA4827-32-56 16:27:00 Test Item Value Reference Range Interpretation Comments MCHC (test code = MCHC) 33.9 32.0-36.0 [facility]vineXdguzziUOZMGWCPLI7073-36-98 16:27:00 Test Item Value Reference Range Interpretation Comments Platelet (test code = Platelet) 198 133-450 [facility]vineOwvzifuSBREYZYHTP5106-20-43 16:27:00 Test Item Value Reference Range Interpretation Comments Hgb (test code = Hgb) 13.7 14.0-18.0 [facility]vineKpyctjyDHDEIIDLLL8348-32-97 16:27:00 Test Item Value Reference Range Interpretation Comments RDW (test code = RDW) 14.6 11.5-14.5 [facility]vineOgfcufoMMJLMCQQTP9175-52-11 16:27:00 Test Item Value Reference Range Interpretation Comments Hct (test code = Hct) 40.4 42.0-54.0 [facility]vineEnuyzbkVIJHNFEXZB1682-81-79 16:27:00 Test Item Value Reference Range Interpretation Comments MCH (test code = MCH) 31.5 pg 27.0-31.0 [facility]vineMjtnmwkKELRONGUUN9624-04-92 16:27:00 Test Item Value Reference Range Interpretation Comments MCV (test code = MCV) 92.8 80.0-94.0 [facility]vineHkuuxixYUSHCCKQFK7732-29-90 16:27:00 Test Item Value Reference Range Interpretation Comments RBC (test code = RBC) 4.35 4.70-6.10 [facility]vineKydrlyfVUBHFUMYHD9385-43-67 16:27:00 Test Item Value Reference Range Interpretation Comments WBC (test code = WBC) 9.4 3.7-10.4 [facility]vineQrishfzMNQIBJVIEC0026-96-24 16:27:00 Test Item Value Reference Range Interpretation Comments Eosinophils (test code = 2.4 See_Comment [A utomated message] The Eosinophils) system which ge nerated this result tra nsmitted reference range : <=4.0. The reference r gianfranco was not used to int erpret this result as normal/abnormal . [facility]vineTxpbcecXPRSZJJASZ2762-66-37 16:27:00 Test Item Value Reference Range Interpretation Comments Monocytes (test code = Monocytes) 14.6 2.0-12.0 [facility]vineKuagpwvUGRSIZOCCX3131-49-92 16:27:00 Test Item Value Reference Range Interpretation Comments Segs-Bands # (test code = Segs-Bands #) 5.5 1.5-8.1 [facility]vineTbszqlxSVLHSDLHTU5151-46-32 16:27:00 Test Item Value Reference Range Interpretation Comments Lymphocytes (test code = Lymphocytes) 24.1 20.0-40.0 [facility]vineZgzwjwqNYFOKEWGAO5546-13-34 16:27:00 Test Item Value Reference Range Interpretation Comments Segs (test code = Segs) 58.6 45.0-75.0 [facility]vineWljqjqrIRQOIPWQUO1497-61-59 16:27:00 Test Item Value Reference Range Interpretation Comments Basophils # (test code 0.0 See_Comment [Aut omated message] The = Basophils #) system which generated this result tra nsmitted reference range : <=0.2. The reference r gianfranco was not used to int erpret this result as normal/abnormal . [facility]vineJpfpmnfPMMJKBIBXK5606-14-08 16:27:00 Test Item Value Reference Range Interpretation Comments Eosinophils # (test code 0.2 See_Comment [A utomated message] The = Eosinophils #) system whic h generated this result tra nsmitted reference range : <=0.5. The reference r gianfranco was not used to int erpret this result as normal/abnormal . [facility]vineUlxsqtqNDRDPKEMKY5385-01-96 16:27:00 Test Item Value Reference Range Interpretation Comments Basophils (test code = 0.3 See_Comment [Aut omated message] The Basophils) system which ge nerated this result tra nsmitted reference range : <=1.0. The reference r gianfranco was not used to int erpret this result as normal/abnormal . [facility]vineHsnwcpqIWWBCFELMN9175-61-20 16:27:00 Test Item Value Reference Range Interpretation Comments Monocytes # (test code 1.4 See_Comment [Aut omated message] The = Monocytes #) system which generated this result tra nsmitted reference range : <=0.8. The reference r gianfranco was not used to int erpret this result as normal/abnormal . [facility]vineOcgcexiUYCMNJAIOR9491-54-80 16:27:00 Test Item Value Reference Range Interpretation Comments Lymphocytes # (test code = Lymphocytes 2.3 1.0-5.5 #) [facility]2015-01-26 16:27:00 Test Item Value Reference Range Interpretation Comments Calcium Lvl (test code = Calcium Lvl) 9.4 8.5-10.5 [facility]2015-01-26 16:27:00 Test Item Value Reference Range Interpretation Comments CO2 (test code = CO2) 26 24-32 [facility]2015-01-26 16:27:00 Test Item Value Reference Range Interpretation Comments eGFR (test code = eGFR) 40 [facility]2015-01-26 16:27:00 Test Item Value Reference Range Interpretation Comments BUN (test code = BUN) 45 7-22 [facility]2015-01-26 16:27:00 Test Item Value Reference Range Interpretation Comments Glucose Lvl (test code = Glucose Lvl) 100 70-99 [facility]2015-01-26 16:27:00 Test Item Value Reference Range Interpretation Comments Potassium Lvl (test code = Potassium 4.4 3.5-5.1 Lvl) [facility]2015-01-26 16:27:00 Test Item Value Reference Range Interpretation Comments Chloride Lvl (test code = Chloride Lvl) 106 95-109 [facility]2015-01-26 16:27:00 Test Item Value Reference Range Interpretation Comments Creatinine Lvl (test code = Creatinine 1.7 0.5-1.4 Lvl) [facility]2015-01-26 16:27:00 Test Item Value Reference Range Interpretation Comments Sodium Lvl (test code = Sodium Lvl) 139 135-145 [facility]2015-01-26 16:27:00 Test Item Value Reference Range Interpretation Comments AGAP (test code = AGAP) 11.4 10.0-20.0 [facility] [id number] 16:27:00 Test Item Value Reference Range Interpretation Comments MPV (test code = MPV) 7.3 7.4-10.4 [id number] 16:27:00 Test Item Value Reference Range Interpretation Comments MCHC (test code = MCHC) 33.9 32.0-36.0 [id number] 16:27:00 Test Item Value Reference Range Interpretation Comments Platelet (test code = Platelet) 198 133-450 [facility] [id number] 16:27:00 Test Item Value Reference Range Interpretation Comments Hgb (test code = Hgb) 13.7 14.0-18.0 [facility]r[id number] 16:27:00 Test Item Value Reference Range Interpretation Comments RDW (test code = RDW) 14.6 11.5-14.5 [id number] 16:27:00 Test Item Value Reference Range Interpretation Comments Hct (test code = Hct) 40.4 42.0-54.0 [id number] 16:27:00 Test Item Value Reference Range Interpretation Comments MCH (test code = MCH) 31.5 pg 27.0-31.0 [facility] Gr[id number] 16:27:00 Test Item Value Reference Range Interpretation Comments MCV (test code = MCV) 92.8 80.0-94.0 [id number] 16:27:00 Test Item Value Reference Range Interpretation Comments RBC (test code = RBC) 4.35 4.70-6.10 [id number] 16:27:00 Test Item Value Reference Range Interpretation Comments WBC (test code = WBC) 9.4 3.7-10.4 [facility]r[id number] 16:27:00 Test Item Value Reference Range Interpretation Comments Eosinophils (test code = 2.4 See_Comment [A utomated message] The Eosinophils) system which ge nerated this result tra nsmitted reference range : <=4.0. The reference r gianfranco was not used to int erpret this result as normal/abnormal . [facility] G[id number] 16:27:00 Test Item Value Reference Range Interpretation Comments Monocytes (test code = Monocytes) 14.6 2.0-12.0 [id number] 16:27:00 Test Item Value Reference Range Interpretation Comments Segs-Bands # (test code = Segs-Bands #) 5.5 1.5-8.1 [facility]r[id number] 16:27:00 Test Item Value Reference Range Interpretation Comments Lymphocytes (test code = Lymphocytes) 24.1 20.0-40.0 [facility][id number] 16:27:00 Test Item Value Reference Range Interpretation Comments Segs (test code = Segs) 58.6 45.0-75.0 [facility] Gr[id number] 16:27:00 Test Item Value Reference Range Interpretation Comments Basophils # (test code 0.0 See_Comment [Aut omated message] The = Basophils #) system which generated this result tra nsmitted reference range : <=0.2. The reference r gianfranco was not used to int erpret this result as normal/abnormal . [id number] 16:27:00 Test Item Value Reference Range Interpretation Comments Eosinophils # (test code 0.2 See_Comment [A utomated message] The = Eosinophils #) system [facility] generated this result tra nsmitted reference range : <=0.5. The reference r gianfranco was not used to int erpret this result as normal/abnormal . [id number] 16:27:00 Test Item Value Reference Range Interpretation Comments Basophils (test code = 0.3 See_Comment [Aut omated message] The Basophils) system which ge nerated this result tra nsmitted reference range : <=1.0. The reference r gianfranco was not used to int erpret this result as normal/abnormal . [id number] 16:27:00 Test Item Value Reference Range Interpretation Comments Monocytes # (test code 1.4 See_Comment [Aut omated message] The = Monocytes #) system which generated this result tra nsmitted reference range : <=0.8. The reference r gianfranco was not used to int erpret this result as normal/abnormal . [facility] Gr[id number] 16:27:00 Test Item Value Reference Range Interpretation Comments Lymphocytes # (test code = Lymphocytes 2.3 1.0-5.5 #) [facility] Notes Date/Time Note Provider Source 2021-06-04 ALEKSANDR DUONG [facility] 17:55:49-00:00 OPERATIVE/PROCEDURE REPORT LEVI COLEY FACILITY: [facility] Billing #: [id number] Room: [facility] MR #: [id number] : 1945 DATE OF PROCEDURE: 06/04/2021 SURGEON: Aleksandr Duong DPM PREOPERATIVE DIAGNOSIS: Osteomyelitis distal pha lanx, third digit, left foot. POSTOPERATIVE DIAGNOSIS: Osteomyelitis distal ph alanx, third digit, left foot. PROCEDURES: 1. Partial third digit amputation, left foot. 2. Bone biopsy, proximal phalanx, third digit, l eft foot. ASSURANCE AUDITOR: Stanford Marcum, PGY-1. ESTIMATED BLOOD LOSS: Minimal. [...] sterile 4 x 4 gauze, Webril, and Ramana bandage in a mildly compressive manner. The patient tolerated all procedures well, was transferred to recovery room with vital signs stable. Vascular status intact. He w as given explicit instructions to keep all dressing clean at the foot up at all times. The patient will continue to remai n in-house for further observation and monitoring. We are plann ing for discharge likely in next 24 hours with outpatien t followup visit. BDL/MODL /[id number] 2020-07-02 ALEKSANDR DUONG [facility] 19:02:35-00:00 OPERATIVE/PROCEDURE REPORT LEVI COLEY FACILITY: [facility] Mobibeaming #: [id number] Room: [address] [place] [address] MR #: [id number] : 1945 DATE OF PROCEDURE: 07/02/2020 SURGEON: Aleksandr Duong DPM PREOPERATIVE DIAGNOSIS: Gangrene, right great to e. POSTOPERATIVE DIAGNOSIS: Gangrene, right great t oe. PROCEDURES PERFORMED: 1. Amputation of right great toe. 2. Rotational skin plasty, right foot. BAIT MAKER: None. ESTIMATED BLOOD LOSS: Minimal. MATERIALS: None. [...] rge in not too distant future. BDL/MODL /[id number] 2016-09-12 EXAM: XR CHEST 2 VIEWS [facility] 10:09:00-00:00 DATE: 09/12/2016 3:00 AM CDT Aleyda raymond INDICATION: Line Placement - Status post [...] effusions. 2016-09-12 EXAM: XR CHEST 2 VIEWS [facility] 10:09:00-00:00 DATE: 09/12/2016 3:00 AM [facility] INDICATION: Line Placement - Status [...] effusions. 2016-09-12 EXAM: XR CHEST 2 VIEWS [facility] 10:09:00-00:00 DATE: 09/12/2016 3:00 AM CDT Cente r [...] Chest one view, 09/11/2016 at 1752 hours [facility] 17:47:00-00:00 HISTORY: 71-year-old man with line placement. [...] Chest one view, 09/11/2016 at 1752 hours [facility] 17:47:00-00:00 HISTORY: 71-year-old man with line placement. [...] Chest one view, 09/11/2016 at 1752 hours [facility] 17:47:00-00:00 HISTORY: 71-year-old man with line placement. [...]
--- NOTE | 2022-08-15 16:33 | RAD REPORT ---
EXAM DESCRIPTION: CT - Head C Spine Cap Wo Con - 08/15/2022 4:08 pm CLINICAL HISTORY: Head and neck injury with chest and abdominal pain status post fall TECHNIQUE: Computed axial tomography of head, neck, chest, abdomen and pelvis obtained. IV and oral contrast not requested. Coronal and sagittal reconstruction performed. All CT scans are performed using dose optimization technique as appropriate and may include automated exposure control or mA/KV adjustment according to patient size. COMPARISON: Head and Chest CT 2015 CT abdomen 1999 FINDINGS: Right parietal scalp hematoma. Intracranial bleed is not present. An intracranial bleed is not seen. 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 An extra-axial fluid collection is not noted. . Fluid within the sinuses/mastoids is not seen. A cervical fracture is not seen. No dislocation is noted. The evaluation of mediastinum, ilan, vessels, solid organs and bowel are limited secondary to the lac k of contrast administration. A mediastinal hematoma is not noted. Small right pleural effusion. . A lung contusion is not present. 15 mm Y shaped opacities left upper lobe The liver,spleen, pancreas, adrenals,kidneys and bladder do not demonstrate an acute traumatic injury The pancreas is atrophic IMPRESSION: No acute intracranial abnormality is seen. A cervical fracture is not visualized. If the patient continues have symptoms to suggest intracrania l/spinal cord pathology MRI be recommended No acute traumatic abnormality involving the chest/abdomen/pelvis. Small right pleural effusion 15 mm Y shaped opacities left upper lobe may represent a mucus plug. Followup CT chest in 1 month rec ommended for re-evaluation
--- NOTE | 2022-08-15 17:07 | EDPHYS ---
Physician Documentation [facility] Name: Ely Coley Age: 77 yrs Sex: Male : 1945 Arrival Date: 08/15/2022 Time: 15:07 Bed 19 Private MD: Dulce Shah ED Physician Derrick Jansen HPI: 08/15 15:45 This 77 yrs old Male presents to ER via Ambulatory with complaints of Fall Injury, Arm cp wound issue. 15:45 Details of fall: The patient fell from an upright position, while walking, tripped over cp dog, and struck a concrete surface. Onset: The symptoms/episode began/occurred 3 day(s) ago. Associated injuries: The patient sustained injury to the head, contusion, swelling, tenderness. 15:45 Patient is a 77-year-old male with past medical history significant for A-fib, cp hypertension and diabetes. Patient presents to the emergency department with complaints of a fall he sustained 3 days ago while walking his dog. Patient reports he lost his balance after tripping over the dog fell back struck his head against the concrete. Patient denies any loss of consciousness, denies headache. Patient presents to the emergency department with concern for swelling and also to address a wound to his left forearm that he sustained from a fall this past Wednesday. He is accompanied by his who reports she has been dressing the wound but concerned that it continues to bleed when changing the dressing. Historical: - Allergies: 15:21 Glucophage; nj1 15:21 metformin; nj1 15:21 steroids; nj1 - PMHx: 15:21 angina pectoris; Atrial Fib; CVA; Hypertension; Pacemaker; Diabetes mellitus; nj1 - PSHx: 15:21 right knee; Pacemaker; nj1 15:25 Toe amputation; nj1 15:25 Cholecystectomy; nj1 - Immunization history:: Client reports receiving the 2nd dose of the Covid vaccine. - Social history:: Smoking status: Patient reports the use of cigarette tobacco products, cigars. - Immunization history: Last tetanus immunization: - up to date. ROS: 15:50 Constitutional: Negative for body aches, chills, fever, poor PO intake. cp 15:50 Eyes: Negative for injury, pain, redness, and discharge. cp 15:50 Neck: Negative for stiffness. 15:50 Cardiovascular: Negative for chest pain, edema, palpitations. 15:50 Respiratory: Negative for cough, shortness of breath, wheezing. 15:50 Abdomen/GI: Negative for abdominal pain, nausea, vomiting, and diarrhea. 15:50 Back: Negative for pain at rest, pain with movement. 15:50 Skin: Positive for of the left forearm, skin tear. 15:50 Neuro: Negative for altered mental status, dizziness, headache, loss of consciousness, syncope, weakness. 15:50 All other systems are negative. Exam: 15:55 Constitutional: The patient appears in no acute distress, alert, awake, cp non-diaphoretic, non-toxic, well developed, well nourished. 15:55 Head/face: Noted is contusion, that is superficial, of the occipital area of scalp, cp swelling, that is mild, tenderness, that is moderate, mild swelling and ecchymosis noted right lower forehead. Sinus tenderness, that is mild, is located over the right frontal sinus. 15:55 Eyes: Periorbital structures: swelling, that is mild, on the right lower eyelid, ecchymosis, that is mild, on the right lower eyelid, Pupils: equal, round, and reactive to light and accomodation, Extraocular movements: intact throughout, Conjunctiva: normal, no exudate, no injection, Lids and lashes: appear normal, bilaterally. 15:55 ENT: External ear(s): are unremarkable, Ear canal(s): are normal, clear, TM's: dullness, bilaterally, Nose: is normal, Mouth: Lips: moist, Oral mucosa: pink and intact, moist, Posterior pharynx: is normal, airway is patent, no erythema, no exudate. 15:55 Neck: External neck: ecchymosis, that is moderate, of the right mid cervical area, lower cervical area, right trapezius, right posterior aspect of neck and right lateral aspect of neck, tenderness, that is mild, of the right mid cervical area, lower cervical area, right trapezius, right posterior aspect of neck and right lateral aspect of neck, ROM/movement: limited range of motion, is not appreciated, nuchal rigidity, is not appreciated. 15:55 Chest/axilla: Inspection: normal, Palpation: is normal, no crepitus, no tenderness. 15:55 Cardiovascular: Rate: normal, Edema: is not appreciated, JVD: is not appreciated. 15:55 Respiratory: the patient does not display signs of respiratory distress, Respirations: normal, no use of accessory muscles, no retractions, labored breathing, is not present, Breath sounds: are clear throughout, no decreased breath sounds, no stridor, no wheezing. 15:55 Abdomen/GI: Inspection: abdomen appears normal, Palpation: abdomen is soft and non-tender, in all quadrants. 15:55 Back: vertebral tenderness, is not appreciated. 15:55 Musculoskeletal/extremity: Exam is negative for decreased range of motion, deformity. 15:55 Skin: injury, There is a large skin tear noted to the left proximal forearm with mild surrounding erythema. Dressing is removed to reveal mild bleeding and mild swelling. Vital Signs: 15:14 BP 127 / 57; Pulse 62; Resp 18; Temp 97.8; Pulse Ox 100% on R/A; Weight 98.88 kg; nj1 Height 6 ft. 0 in. ; Pain 9/10; 17:00 BP 139 / 65; Pulse 62; Resp 16; Pulse Ox 98% on R/A; db 15:14 Body Mass Index 29.57 (98.88 kg, 182.88 cm) [facility] 15:14 Pain Scale: Adult nj1 Revere Coma Score: 16:00 Eye Response: spontaneous(4). Motor Response: obeys commands(6). Verbal Response: db oriented(5). Total: 15. Trauma Score (Adult): 16:00 Eye Response: spontaneous(1); Verbal Response: oriented(1); Motor Response: obeys db commands(2); Systolic BP: > 89 mm Hg(4); Respiratory Rate: 10 to 29 per min(4); Santa Score: 15; Trauma Score: 12 MDM: 15:27 Patient medically screened. cp 16:00 Differential diagnosis: abrasion, closed head injury, contusion, fracture, multiple cp trauma. 17:06 Data reviewed: vital signs, nurses notes, radiologic studies, CT scan. cp 17:06 Consideration of Admission/Observation Escalation of care including cp admission/observation considered. I considered the following discharge prescriptions or medication management in the emergency department Medications were administered in the Emergency Department. See MAR. Care significantly affected by the following chronic conditions: Diabetes, Hypertension. Counseling: I had a detailed discussion with the patient and/or guardian regarding: the historical points, exam findings, and any diagnostic results supporting the discharge/admit diagnosis, radiology results, the need for outpatient follow up, a family practitioner, to return to the emergency department if symptoms worsen or persist or if there are any questions or concerns that arise at home. ED course: Vital signs stable. Large skin tear noted to left forearm cleaned and redressed. Discussed results of today's CT report that was negative for significant injuries. Will discharge to home for continued monitoring with the prescription for oral Augmentin. We did discuss that the CT chest showed concern for a mucous plug in the lungs and so recommendation is for follow-up with pcp for reevaluation of this. 08/15 15:37 Order name: CT Traumagram (Head C Spine CAP wo con); Complete Time: 16:42 cp 08/15 16:43 Order name: Wound dressing; Complete Time: 16:57 cp Administered Medications: 17:10 Drug: Amoxicillin-Clavulanate PO 875 mg Route: PO; db 17:23 Follow up: Response: No adverse reaction db Disposition Summary: 08/15/22 17:07 Discharge Ordered Location: Home cp Problem: new cp Symptoms: have improved cp Condition: Stable cp Diagnosis - Fall (on)(from) sidewalk curb cp - Contusion of scalp, initial encounter cp - Arm Laceration Left/ Open wound of forearm cp Followup: cp - With: Private Physician - When: 2 - 3 days - Reason: Wound Recheck Discharge Instructions: - Discharge Summary Sheet cp - Facial or Scalp Contusion cp - Hematoma cp - Skin Tear cp Forms: - Medication Reconciliation Form cp - Thank You Letter cp - Antibiotic Education cp - Prescription Opioid Use cp - [email or web address] cp Prescriptions: - mupirocin 2 % Topical ointment - apply 1 application by TOPICAL route 2-3 times daily for 8-10 days; 30 cp application; Refills: 0, Product Selection Permitted - Augmentin 875-125 mg Oral Tablet - take 1 tablet by ORAL route every 12 hours for 10 days; 20 tablet; Refills: 0, cp Product Selection Permitted Signatures: Dispatcher [employer] EDMS Derrick Riddle PA PA cp Benton, Danielle, RN RN db Lilian Adler RN RN nj1
--- NOTE | 2022-08-15 17:07 | ER ---
Nurse's Notes [facility] Name: Ely Coley Age: 77 yrs Sex: Male : 1945 Arrival Date: 08/15/2022 Time: 15:07 Bed 19 Private MD: Dulce Shah Diagnosis: Fall (on)(from) sidewalk curb;Contusion of scalp, initial encounter;Arm Laceration Left/ Open wound of forearm Presentation: 08/15 15:14 Chief complaint: Spouse and/or significant other states: Fall a couple days ago hitting nj1 his head on concrete, "at first it looked like a bruise but now its more swollen". Painful ever since, took Tylenol but not helping anymore. Last dose "last night before bed". I also want you to check his left arm, he has a skin tear from a prior fall but it bleeds "excessively" when bandage is changed. Pt takes eliquis. Coronavirus screen: Vaccine status: Patient reports receiving the 2nd dose of the covid vaccine. Ebola Screen: Patient denies travel to an Ebola-affected area in the 21 days before illness onset. Initial Sepsis Screen: Does the patient meet any 2 criteria? No. Patient's initial sepsis screen is negative. Does the patient have a suspected source of infection? No. Patient's initial sepsis screen is negative. Risk Assessment: Do you want to hurt yourself or someone else? Patient reports no desire to harm self or others. Onset of symptoms was August 12, 2022. 15:14 Method Of Arrival: Ambulatory banner 15:14 Acuity: MITCH 3 wv1 17:25 Care prior to arrival: None. Mechanism of Injury: Fall from standing position. Trauma db event details: Injury occurred in the [facility]. Triage Assessment: 17:25 General: Appears in no apparent distress. comfortable, Behavior is calm, cooperative. db Trauma Activation: Not Applicable Physician: ED Physician; Name: ; Notified At: ; Arrived At: Physician: General Surgeon; Name: ; Notified At: ; Arrived At: Physician: Radiology; Name: ; Notified At: ; Arrived At: Physician: Respiratory; Name: ; Notified At: ; Arrived At: Physician: Lab; Name: ; Notified At: ; Arrived At: Historical: - Allergies: 15:21 Glucophage; nj1 15:21 metformin; nj1 15:21 steroids; nj1 - PMHx: 15:21 angina pectoris; Atrial Fib; CVA; Hypertension; Pacemaker; Diabetes mellitus; nj1 - PSHx: 15:21 right knee; Pacemaker; nj1 15:25 Toe amputation; nj1 15:25 Cholecystectomy; nj1 - Immunization history:: Client reports receiving the 2nd dose of the Covid vaccine. - Social history:: Smoking status: Patient reports the use of cigarette tobacco products, cigars. - Immunization history: Last tetanus immunization: - up to date. Screenin:52 [facility] ED Fall Risk Assessment (Adult) History of falling in the last 3 months, db including since admission Yes- single mechanical fall (1 pt) Confusion or Disorientation No (0 pts). [facility] ED Fall Risk Assessment (Adult) History of falling in the last 3 months, including since admission Confusion or Disorientation Intoxicated or Sedated No (0 pts) Impaired Gait Yes (1 pt) Mobility Assist Device Used Yes (1 pt) Altered Elimination No (0 pt) Score/Fall Risk Level 3 or more points = High Risk Oriented to surroundings, Maintained a safe environment. Abuse screen: Denies threats or abuse. Denies injuries from another. Nutritional screening: No deficits noted. Tuberculosis screening: No symptoms or risk factors identified. Primary Survey: 16:00 NO uncontrolled hemorrhage observed. A: The client is awake and alert. The airway is db patent. The client is alert. Airway: patent, No supplemental oxygen in use on arrival. Breathing/Chest: Spontaneous respiratory effort, equal unlabored respirations, breath sounds clear bilaterally, regular pattern, symmetrical chest rise and fall. Respiratory effort: spontaneous, unlabored, Breath sounds: clear. Circulation: No external hemorrhage present. Regular and strong central pulse, skin warm/dry/normal color. Circulation: No external hemorrhage present. Regular and strong central pulse, skin warm/dry/normal color. Disability Pupils are equal, round, reactive to light and accommodation. Client is alert. Exposure/Environment: There is no evidence of uncontrolled external bleeding. Obvious injury(ies) are noted at this time: left arm and bruising to face and neck. Reassessment Alertness and Airway: Awake and alert. The airway is patent. Airway Patent Breathing: Spontaneous respiratory effort, equal unlabored respirations, breath sounds clear bilaterally, regular pattern with symmetrical chest rise and fall. Circulation: No external hemorrhage noted. Regular and strong central pulse, skin warm/dry/normal color. Disability: Alert. Assessment: 15:51 Reassessment: Patient appears in no apparent distress at this time. Patient and/or db family updated on plan of care and expected duration. Pain level reassessed. Patient is alert, oriented x 3, equal unlabored respirations, skin warm/dry/pink. skin tare to left arm and bruising to face. Neuro: Level of Consciousness is awake, alert, obeys commands, Oriented to person, place, time, situation. 15:55 Reassessment: patient to CT. db 16:14 Reassessment: patient returned to room from CT. Pain: Complains of pain in head and db left arm. Vital Signs: 15:14 BP 127 / 57; Pulse 62; Resp 18; Temp 97.8; Pulse Ox 100% on R/A; Weight 98.88 kg; nj1 Height 6 ft. 0 in. ; Pain 9/10; 17:00 BP 139 / 65; Pulse 62; Resp 16; Pulse Ox 98% on R/A; db 15:14 Body Mass Index 29.57 (98.88 kg, 182.88 cm) nj1 15:14 Pain Scale: Adult nj1 [place] Score: 16:00 Eye Response: spontaneous(4). Motor Response: obeys commands(6). Verbal Response: db oriented(5). Total: 15. Trauma Score (Adult): 16:00 Eye Response: spontaneous(1); Verbal Response: oriented(1); Motor Response: obeys db commands(2); Systolic BP: > 89 mm Hg(4); Respiratory Rate: 10 to 29 per min(4); [place]ine Score: 15; Trauma Score: 12 ED Course: 15:10 Patient arrived in ED. im 15:11 Dulce Sahh is Private Physician. im 15:17 Derrick Riddle PA is PHCP. cp 15:17 Derrick Jansen MD is Attending Physician. cp 15:21 Triage completed. nj1 15:25 Arm band placed on right wrist. nj1 15:49 Risa Madden, RN is Primary Nurse. db 15:50 Dressings: Adaptic X 1; left arm Kerlix non-adherent dressing 4X4s wound to left db forearm dressed. 16:00 Patient has correct armband on for positive identification. Bed in low position. Call db light in reach. Side rails up X2. 16:00 Patient maintains SpO2 saturation greater than 95% on room air. db 16:10 CT Traumagram (Head C Spine CAP wo con) In Process Unspecified. EDMS 17:25 No provider procedures requiring assistance completed. Patient did not have IV access db during this emergency room visit. 17:26 Thermoregulation: warm blanket given to patient. db Administered Medications: 17:10 Drug: Amoxicillin-Clavulanate PO 875 mg Route: PO; db 17:23 Follow up: Response: No adverse reaction db Medication: 17:25 VIS not applicable for this client. db Intake: 16:00 PO: 0ml; Total: 0ml. db Outcome: 17:07 Discharge ordered by MD. cp 17:25 Discharged to home via wheelchair, with family. db 17:25 Condition: stable 17:25 Patient's length of stay was not longer than 2 hours. 17:25 Discharge instructions given to patient, family, Instructed on discharge instructions, db follow up and referral plans. Prescriptions given X 2. 17:26 Patient left the ED. db Signatures: Dispatcher [employer] EDMS Derrick Riddle PA PA cp Risa Madden, RN RN db Lilian Adler, RN RN nj1 Ibis Hartman Corrections: (The following items were deleted from the chart) 15:52 15:52 [facility] ED Fall Risk Assessment (Adult) History of falling in the last 3 months, db including since admission No falls in past 3 months (0 pts) db
[2022-08-15] MEDS ORDERED: AMOX/K CLAV 875 MG TAB ONE (17:18)
[2022-08-15 17:30] VITALS: BP 127/57; TEMP 97.8; O2SAT 100
== END 2022-08-15 17:26 | disposition home or self-care (01) ==
LOC: ER 15:07
DX: S00.03XA Contusion of scalp, initial encounter (principal); S51.812A Laceration without foreign body of left forearm, initial encounter; W01.198A Fall on same level from slipping, tripping and stumbling with subsequent striking against other object, initial encounter; Y93.89 Activity, other specified; Y92.89 Other specified places as the place of occurrence of the external cause; Y99.8 Other external cause status
CPT/HCPCS: 70450; 71250; 72125; 99284

== ENCOUNTER 2023-02-20 22:36 | Inpatient (IN) | payer OTHER ==
[2023-02-21 00:30] LABS: Absolute Lymphocytes (CBC) 1.3 K/uL (0.7-4.9); Hematocrit 31.4 % (39.6-49.0); Lymphocytes % 8.8 % (15.3-44.8); MCV 92.7 fL (80-100); MPV 7.4 fL (7.6-11.3); Platelets 247 thou/uL (152-406); RBC Red Blood Cell Count 3.38 M/uL (4.33-5.43)
[2023-02-21 00:40] LABS: Protime INR 1.95
[2023-02-21 00:46] LABS: Albumin 2.9 g/dL (3.4-5.0); Bilirubin Total 0.9 mg/dL (0.2-1.0); Protein, Total 7.2 g/dL (6.4-8.2)
[2023-02-21] MEDS ORDERED: AMPICILLIN/SULBACTAM 3GM/VIAL ONE (01:04)
[2023-02-21] MEDS ORDERED: NA CHLORIDE 0.9% 100 ML ONE ×2 (01:05→04:12)
[2023-02-21] MEDS ORDERED: NA CHLORIDE 0.9% 500 ML ONE (01:05)
[2023-02-21 01:15] LABS: Platelet Estimate ADEQ
[2023-02-21 01:16] LABS: Blood Morphology Comment NOT SEEN (NOT SEEN)
[2023-02-21] MEDS ORDERED: NA CHLORIDE 0.9% 250 ML ONE (02:06)
[2023-02-21] MEDS ORDERED: VANCOMYCIN 1 GM/VIAL ONE (02:06)
--- NOTE | 2023-02-21 04:01 | EDPHYS ---
Physician Documentation [facility] Name: Ely Coley Age: 77 yrs Sex: Male : 1945 Arrival Date: 02/20/2023 Time: 22:36 Bed 19 Private MD: Jean Carlos Velásquez E ED Physician Jacobo Joy HPI: 02/20 23:25 This 77 yrs old Male presents to ER via Ambulatory with complaints of Facial Swelling. cp 23:25 The patient or guardian complains of pain, that is acute, swelling, tenderness. The cp symptoms are located left facial cheek and left side of neck. Onset: The symptoms/episode began/occurred yesterday. 23:25 Context: The neck injury/problem resulted from from unknown cause. Associated signs and cp symptoms: Pertinent positives: chills, fever. Severity of symptoms: in the emergency department the symptoms are actually worse. 02/21 03:57 Patient presents with moderate to severe left facial swelling associated with redness sp4 tenderness and pain. Patient reports pain began yesterday and has progressed in intensity. Patient care was assumed from physician operational assistant at 2 AM . Historical: - Allergies: 02/20 23:21 Glucophage; la4 23:21 metformin; la4 23:21 steroids; la4 - Home Meds: 23:21 spironolactone 25 mg Oral tab 1 tab 2 times per day [Active]; PreserVision AREDS 7 Oral la4 tab twice a day [Active]; Men's Multi-Vitamin Oral tab daily [Active]; Humalog Mix 75-25 100 unit/mL (75-25) Sub-Q susp use prn [Active]; glipizide 5 mg Oral tr24 1 tab once daily [Active]; Eliquis 2.5 mg Oral tab 1 tab 2 times per day [Active]; amiodarone 200 mg Oral tab 1 tab once daily [Active]; - PMHx: 23:21 angina pectoris; Atrial Fib; CVA; Diabetes - IDDM; diabetes mellitus; Hypertension; la4 Pacemaker; Diabetes - NIDDM; - PSHx: 23:21 Cholecystectomy; pacemaker; right knee; toe amputation; la4 - Immunization history:: Adult Immunizations up to date. - Social history:: Smoking status: Patient/guardian denies using tobacco, the patient reports quitting approximately 20 years ago. - Family history:: not pertinent. - Code Status:: Full code. ROS: 23:30 Constitutional: Positive for chills, Negative for fever, poor PO intake, cp 23:30 ENT: Positive for of the left cheek and left mandible, swelling, pain, erythema, cp 23:30 Neck: Positive for swelling, tenderness, of the left side of neck, 23:30 Cardiovascular: Negative for chest pain, 23:30 Respiratory: Negative for cough, shortness of breath, wheezing, 23:30 Abdomen/GI: Negative for abdominal pain, vomiting, diarrhea, constipation, 23:30 Neuro: Negative for altered mental status, dizziness, syncope, weakness, 23:30 All other systems are negative, 02/21 03:57 Constitutional: Negative for fever, chills, and weight loss, positive for facial sp4 tenderness, positive facial pain, positive facial swelling, positive facial redness Exam: 02/20 23:33 Constitutional: The patient appears in no acute distress, alert, awake, cp non-diaphoretic, non-toxic, well developed, well nourished, uncomfortable, 23:33 Head/face: Noted is erythema, that is severe, of the left cheek and left mandible, cp swelling, that is moderate, of the left cheek and left mandible, tenderness, that is moderate, of the left cheek and left mandible, 23:33 Eyes: Periorbital structures: appear normal, Pupils: equal, round, and reactive to light and accomodation, Extraocular movements: intact throughout, Conjunctiva: normal, no exudate, no injection, Sclera: no appreciated abnormality, Lids and lashes: appear normal, bilaterally, 23:33 ENT: External ear(s): are unremarkable, Nose: is normal, Mouth: Lips: moist, Oral mucosa: pink and intact, moist, Posterior pharynx: Airway: no evidence of obstruction, patent, Tonsils: no enlargement, Dental exam: gum swelling, not appreciated, Voice: is normal, 23:33 Neck: External neck: erythema, that is moderate, swelling, that is moderate, left lateral neck, ROM/movement: is normal, is supple, no meningismus, no nuchal rigidity, 23:33 Chest/axilla: Inspection: normal, 23:33 Cardiovascular: Rate: normal, 23:33 Respiratory: the patient does not display signs of respiratory distress, Respirations: normal, no use of accessory muscles, no retractions, labored breathing, is not present, Breath sounds: are clear throughout, no decreased breath sounds, no stridor, no wheezing, 02/21 04:01 Constitutional: This is a well developed, well nourished patient who is awake, alert, sp4 frail elderly male, nontoxic-appearing, ill-appearing, left-sided facial redness tenderness pain and left-sided parotid enlarged Vital Signs: 02/20 23:00 BP 129 / 62; Pulse 83; Resp 16; Temp 98.4(O); Pulse Ox 98% on R/A; Weight 109.77 kg; la4 Height 6 ft. 0 in. ; Pain 8/10; 23:24 BP 129 / 62; Pulse 83; Resp 16; Pulse Ox 98% ; la4 02/21 02:03 BP 135 / 73; Pulse 91; Resp 20; Pulse Ox 96% ; la4 05:00 BP 131 / 60; Pulse 87; Resp 18; Pulse Ox 96% on R/A; la4 02/20 23:00 Body Mass Index 32.82 (109.77 kg, 182.88 cm) la4 02/20 23:00 Pain Scale: Adult [facility] 02/20 23:00 pain to the right jaw la4 [place] Score: 02/21 05:00 Eye Response: spontaneous(4). Motor Response: obeys commands(6). Verbal Response: la4 oriented(5). Total: 15. MDM: 02/20 23:28 Patient medically screened. 02/21 03:55 ED course: EXAM: CT Maxillofacial Without Intravenous Contrast CLINICAL HISTORY: The sp4 patient is 77 years old and is Male; SWELLING TECHNIQUE: Axial computed tomography images of the face without intravenous contrast. Sagittal and coronal reformatted images were created and reviewed. This CT exam was performed using one or more of the following dose reduction techniques: automated exposure control, adjustment of the mA and/or kV according to patient size, and/or use of iterative reconstruction technique. COMPARISON: No relevant prior studies available. FINDINGS: Bones/joints: No acute fracture. Soft tissues: Unremarkable. Orbits: Unremarkable. Submandibular/parotid glands: Enlarged left parotid gland with adjacent stranding suggestive of parotitis. Sinuses: Unremarkable. No air-fluid levels. IMPRESSION: Enlarged left parotid gland with adjacent stranding suggestive of parotitis.. ED course: CLINICAL HISTORY: SWELLING COMPARISON: None. TECHNIQUE: CT NECK WITHOUT IV CONTRAST on 02/20/2023 11:21 PM MANAGER STATISTICS This exam was performed according to our departmental dose-optimization program, which includes automated exposure control, adjustment of the mA and/or kV according to patient size and/or use of iterative reconstruction technique. FINDINGS: The visualized portions of the brain and orbits are normal. The oral cavity, oropharynx and nasopharynx are normal. The parapharyngeal fat planes are preserved. The hypopharynx is unremarkable. The parotid and submandibular glands are grossly within normal limits. No intrinsic mass lesions are seen. . The paranasal sinuses and mastoid air cells are clear. No definite pathologically enlarged lymph nodes are identified. The thyroid gland is normal in size and configuration. The left parotid gland is enlarged without associated mass or abscess. There is stranding within the left facial subcutaneous fat from the level of the parotid gland inferiorly. The thoracic inlet is normal. The superior mediastinum and lung apices are normal. No acute osseous abnormalities are identified. IMPRESSION: Extensive left parotidis without abscess or mass.. 03:57 ED course: EXAM: XR Chest, 1 View CLINICAL HISTORY: left facial swelling TECHNIQUE: sp4 Frontal view of the chest. COMPARISON: No relevant prior studies available. FINDINGS: Lungs: Mild central pulmonary vascular and interstitial prominence and patchy bibasilar opacities. Pleural space: Small bilateral pleural effusions. No pneumothorax. Heart: The cardiac silhouette is enlarged, in part accentuated by portable technique. Mediastinum: Unremarkable. Normal mediastinal contour. Bones/joints: Unremarkable. No acute fracture. Vasculature: Thoracic aortic atherosclerosis. Tubes, lines and devices: Left chest wall dual-lead pacer. IMPRESSION: Constellation of findings which may be related to pulmonary congestion including small bilateral pleural effusions. Superimposed infection not excluded. . 03:57 Differential Diagnosis altered mental status, sepsis, flu. Data reviewed: vital signs, sp4 nurses notes. Data reviewed: old medical records, lab test result(s), radiologic studies, CT scan, plain films. Consideration of Admission/Observation Patient was admitted/placed on observation. Escalation of care including admission/observation considered. Management of patient was discussed with the following: Hospitalist: Dr. Melissa . ED course: Patient has significant facial cellulitis associated with parotitis without underlying abscess.. 02/20 23:21 Order name: Blood Culture Adult (2) cp 02/20 23:21 Order name: CBC with Diff; Complete Time: 01:43 cp 02/21 00:49 Interpretation: Normal except: WBC 14.80; RBC 3.38; HGB 10.3; HCT 31.4; RDW 15.4; MPV cp 7.4; LYM% 8.8; MN% 20.5; NEUT A 10.2; MNA 3.0. 02/20 23:21 Order name: CMP; Complete Time: 00:48 cp 02/21 00:49 Interpretation: Normal except: CL 109; GLUC 128; BUN 22; CRE 1.56; GFR 45; AST 8; ALT cp 13; CA 8.2; ALB 2.9; GLOB 4.3; A/G 0.7. 02/20 23:21 Order name: Lactate w/ 2H reflex if indic.; Complete Time: 00:48 cp 02/20 23:21 Order name: Protime (+inr); Complete Time: 00:48 cp 02/20 23:21 Order name: Ptt, Activated; Complete Time: 00:48 cp 02/20 23:21 Order name: Urinalysis w/ reflexes cp 02/21 00:37 Order name: Manual Differential; Complete Time: 01:43 EDMS 02/21 01:43 Interpretation: Normal except: LYM 5; MONO 20. cp 02/21 04:20 Order name: Glucose, Ancillary Testing; Complete Time: 07:05 EDMS 02/21 05:32 Order name: CBC with Automated Diff EDMS 02/21 05:32 Order name: CBC with Automated Diff EDMS 02/21 05:32 Order name: Comprehensive Metabolic Panel EDMS 02/21 05:32 Order name: Comprehensive Metabolic Panel EDMS 02/20 23:21 Order name: Chest Single View XRAY cp 02/21 01:11 Order name: Facial Bones W/ Mpr EDMS 02/21 01:35 Order name: Soft Tissue Neck Wo Contr EDMS 02/20 23:21 Order name: EKG; Complete Time: 23:21 cp 02/20 23:21 Order name: Accucheck; Complete Time: 04:14 cp 02/20 23:21 Order name: Cardiac monitoring; Complete Time: 01:31 cp 02/20 23:21 Order name: EKG - Nurse/Tech; Complete Time: 04:14 cp 02/20 23:21 Order name: IV Saline Lock - Large Bore; Complete Time: 01:31 cp 02/20 23:21 Order name: Labs collected and sent; Complete Time: 00:56 cp 02/20 23:21 Order name: O2 Per Protocol; Complete Time: 02:02 cp 02/20 23:21 Order name: O2 Sat Monitoring; Complete Time: 02:02 cp 02/20 23:21 Order name: Vital Signs; Complete Time: 02:02 cp Administered Medications: 01:30 Drug: Ampicillin-Sulbactam Sodium IVPB 3 grams IVPB once over 30 mins; (mix in 100 mL la4 NS) Route: IVPB; Infused Over: 30 mins; Site: right forearm; :54 Follow up: Response: No adverse reaction; No change in condition; IV Status: Completed la4 infusion; IV Intake: 100ml 01:31 Drug: NS 0.9% IV 500 ml IV at 500 ml/hr continuous Route: IV; Rate: 500 ml/hr; Site: la4 right forearm; :54 Follow up: IV Status: Completed infusion; IV Intake: 500ml la4 02:14 Drug: vancoMYCIN IVPB 1 grams IVPB once over 2 hrs Route: IVPB; Infused Over: 2 hrs; la4 Site: right forearm; 04:00 Follow up: Response: No adverse reaction; No change in condition; IV Status: Completed la4 infusion; IV Intake: 250ml 04:13 Drug: Piperacillin-Tazobactam IVPB 3.375 grams IVPB once over 60 mins; (mix in NS 100 la4 mL) Route: IVPB; Infused Over: 60 mins; Site: right forearm; 04:13 Drug: morphine IVP or IV 4 mg IVP once over 4 mins Route: IVP; Infused Over: 4 mins; la4 Site: right forearm; 04:14 Drug: Ondansetron IVP 4 mg IVP once; over 2 minutes Route: IVP; Site: right forearm; la4 Disposition: 03:57 Co-signature as Attending Physician, Jacobo Joy MD I agree with the assessment sp4 and plan of care. I reviewed the patient's care provided by Advanced Practice Provider \T\ agree w/ the diagnosis \T\ care plan. I personally saw the pt \T\ performed a substantive portion of the visit, incldng all aspects of the (History/Exam/Medical Decision Making). Disposition Summary: 02/21/23 04:01 Hospitalization Ordered Notes: Hospitalization Status: Inpatient Admission sp4 Provider: Shawn Melissa sp4 Condition: Stable sp4 Problem: new sp4 Symptoms: have improved sp4 Bed/Room Type: Standard sp4 Location: Telemetry/MedSurg (Inpatient)(02/21/23 07:17) eb Room Assignment: 207(02/21/23 07:17) eb Diagnosis - Acute left parotitis, acute facial cellulitis, sp4 Forms: - Medication Reconciliation Form sp4 - SBAR form sp4 - Leadership Thank You Letter sp4 Signatures: Dispatcher [employer] EDMS Derrick Riddle PA PA cp Garcia, Cindy, RN RN Jolie Bautista Sergey, MD MD sp4 Alex Gutierrez RN RN la4 Corrections: (The following items were deleted from the chart) 01:11 02/20 23:21 Facial Bones W/ Con \T\ MPR+CT.RAD.BRZ ordered. EDMS EDMS 02/21 01:12 02/20 23:21 Soft Tissue Neck W/Contr+CT.RAD.BRZ ordered. EDMS EDMS 02/21 01:35 01:12 Soft Tissue Neck Wo Contr ordered. EDGA EDMS 05:25 04:01 Telemetry/MedSurg (Inpatient) sp4 cg 05:25 04:01 sp4 cg 07:17 05:25 [facility] ER HOLD cg eb 07:17 05:25 ERHOLD- cg eb
--- NOTE | 2023-02-21 04:01 | ER ---
Nurse's Notes [facility] Name: Ely Coley Age: 77 yrs Sex: Male : 1945 Arrival Date: 02/20/2023 Time: 22:36 Bed 19 Private MD: Jean Carlos Velásquez E Diagnosis: Acute left parotitis, acute facial cellulitis, Presentation: 02/20 23:00 Chief complaint: Patient states: c/o right jaw swelling with redness and pain starting la4 at night. PMHx Pacemaker, htn, dm, afib. Pt reports top and bottom dentures. 23:00 Coronavirus screen: Vaccine status: Patient reports receiving the 2nd dose of the covid la4 vaccine. Client denies travel out of the [place] in the last 14 days. Ebola Screen: Patient negative for fever greater than or equal to 101.5 degrees Fahrenheit, and additional compatible Ebola Virus Disease symptoms Patient denies exposure to infectious person. Patient denies travel to an Ebola-affected area in the 21 days before illness onset. No symptoms or risks identified at this time. Initial Sepsis Screen: Does the patient meet any 2 criteria? No. Patient's initial sepsis screen is negative. Does the patient have a suspected source of infection? Yes: Skin breakdown/wound. Risk Assessment: Do you want to hurt yourself or someone else? Patient reports no desire to harm self or others. Onset of symptoms was February 19, 2023. 23:00 Acuity: MITCH 3 la4 23:17 Method Of Arrival: Ambulatory la4 Triage Assessment: 23:21 General: Appears in no apparent distress. uncomfortable, Behavior is calm, cooperative, la4 appropriate for age. Pain: Complains of pain in left jaw Pain does not radiate. Pain currently is 8 out of 10 on a pain scale. Pain:. Neuro: No deficits noted. Boswell Agitation-Sedation Scale (RASS): 0 - Alert and Calm Level of Consciousness is awake, alert, obeys commands, Oriented to person, place, time, situation, Appropriate for age. Cardiovascular: No deficits noted. Respiratory: No deficits noted. GI: No deficits noted. Derm: Skin is intact, Skin is dry, Skin is pink, warm \T\ dry. Skin temperature is warm redness noted to the left side of face. Historical: - Allergies: 23:21 Glucophage; la4 23:21 metformin; la4 23:21 steroids; la4 - Home Meds: 23:21 spironolactone 25 mg Oral tab 1 tab 2 times per day [Active]; PreserVision AREDS 7 Oral la4 tab twice a day [Active]; Men's Multi-Vitamin Oral tab daily [Active]; Humalog Mix 75-25 100 unit/mL (75-25) Sub-Q susp use prn [Active]; glipizide 5 mg Oral tr24 1 tab once daily [Active]; Eliquis 2.5 mg Oral tab 1 tab 2 times per day [Active]; amiodarone 200 mg Oral tab 1 tab once daily [Active]; - PMHx: 23:21 angina pectoris; Atrial Fib; CVA; Diabetes - IDDM; diabetes mellitus; Hypertension; la4 Pacemaker; Diabetes - NIDDM; - PSHx: 23:21 Cholecystectomy; pacemaker; right knee; toe amputation; la4 - Immunization history:: Adult Immunizations up to date. - Social history:: Smoking status: Patient/guardian denies using tobacco, the patient reports quitting approximately 20 years ago. - Family history:: not pertinent. - Code Status:: Full code. Screenin/14 01:48 [facility] ED Fall Risk Assessment (Adult) History of falling in the last 3 months, la4 including since admission No falls in past 3 months (0 pts) Confusion or Disorientation Yes (5 pts) Intoxicated or Sedated No (0 pts) Impaired Gait Yes (1 pt) Mobility Assist Device Used Yes (1 pt) Altered Elimination No (0 pt) Score/Fall Risk Level 0 - 2 = Low Risk Oriented to surroundings, Maintained a safe environment, Provided non-skid footwear, Hourly rounding (assess needs \T\ fall precautionary measures) done. 06:02 Abuse screen: Denies threats or abuse. Denies injuries from another. Nutritional la4 screening: No deficits noted. Tuberculosis screening: No symptoms or risk factors identified. Assessment: 01:53 Reassessment: No changes from previously documented assessment. Pt left jaw noted to la4 remain red in color and large. Appears to be the size of a small apple at this time. Pt also c/o pain to the area. Will continue to monitor. Vital Signs: 02/20 23:00 BP 129 / 62; Pulse 83; Resp 16; Temp 98.4(O); Pulse Ox 98% on R/A; Weight 109.77 kg; la4 Height 6 ft. 0 in. ; Pain 8/10; 23:24 BP 129 / 62; Pulse 83; Resp 16; Pulse Ox 98% ; la4 02/21 02:03 BP 135 / 73; Pulse 91; Resp 20; Pulse Ox 96% ; la4 05:00 BP 131 / 60; Pulse 87; Resp 18; Pulse Ox 96% on R/A; la4 02/20 23:00 Body Mass Index 32.82 (109.77 kg, 182.88 cm) la4 02/20 23:00 Pain Scale: Adult la4 02/20 23:00 pain to the right jaw la4 [place] Coma Score: 02/21 05:00 Eye Response: spontaneous(4). Motor Response: obeys commands(6). Verbal Response: la4 oriented(5). Total: 15. ED Course: 02/20 22:38 Patient arrived in ED. rg4 22:38 Jean Carlos Velásquez MD is Private Physician. rg4 23:00 Derrick Riddle PA is PHCP. cp 23:00 Jacobo Joy MD is Attending Physician. cp 23:00 No provider procedures requiring assistance completed. Inserted saline lock: 20 gauge la4 in right forearm, using aseptic technique. Blood collected. 23:21 Triage completed. la4 23:24 Arm band placed on right wrist. Patient placed in waiting room. Labs ordered per la4 protocol. Drawn by ED staff. 23:47 Chest Single View XRAY In Process Unspecified. EDMS 02/21 01:30 Alex Gutierrez, RN is Primary Nurse. la4 01:48 Patient has correct armband on for positive identification. Placed in gown. Bed in low la4 position. Call light in reach. Side rails up X2. Provided Education on: Plan of care. Client placed on continuous cardiac and pulse oximetry monitoring. NIBP monitoring applied. 01:54 Soft Tissue Neck Wo Contr Sent. la4 01:54 Facial Bones W/ Mpr Sent. la4 02:04 Facial Bones W/ Mpr In Process Unspecified. EDMS 02:04 Soft Tissue Neck Wo Contr In Process Unspecified. EDMS 04:00 Shawn Melissa MD is Hospitalizing Provider. sp4 06:02 Patient admitted, IV remains in place. la4 Administered Medications: 01:30 Drug: Ampicillin-Sulbactam Sodium IVPB 3 grams IVPB once over 30 mins; (mix in 100 mL la4 NS) Route: IVPB; Infused Over: 30 mins; Site: right forearm; 01:54 Follow up: Response: No adverse reaction; No change in condition; IV Status: Completed la4 infusion; IV Intake: 100ml 01:31 Drug: NS 0.9% IV 500 ml IV at 500 ml/hr continuous Route: IV; Rate: 500 ml/hr; Site: la4 right forearm; 01:54 Follow up: IV Status: Completed infusion; IV Intake: 500ml la4 02:14 Drug: vancoMYCIN IVPB 1 grams IVPB once over 2 hrs Route: IVPB; Infused Over: 2 hrs; la4 Site: right forearm; 04:00 Follow up: Response: No adverse reaction; No change in condition; IV Status: Completed la4 infusion; IV Intake: 250ml 04:13 Drug: Piperacillin-Tazobactam IVPB 3.375 grams IVPB once over 60 mins; (mix in NS 100 la4 mL) Route: IVPB; Infused Over: 60 mins; Site: right forearm; 04:13 Drug: morphine IVP or IV 4 mg IVP once over 4 mins Route: IVP; Infused Over: 4 mins; la4 Site: right forearm; 04:14 Drug: Ondansetron IVP 4 mg IVP once; over 2 minutes Route: IVP; Site: right forearm; la4 Intake: 01:54 IV: 100ml; Total: 100ml. la4 01:54 IV: 500ml; Total: 600ml. la4 04:00 IV: 250ml; Total: 850ml. la4 Outcome: 04:01 Decision to Hospitalize by Provider. sp4 07:42 Patient left the ED. kc6 Signatures: Dispatcher [employer] EDMS Derrick Riddle PA PA cp Garcia, Rubi rg4 Oksana Ramirez, JUDSON RN kc6 Jacobo Joy MD MD sp4 Alex Gutierrez RN RN la4
[2023-02-21] MEDS ORDERED: ONDANSETRON 4 MG/2 ML VIAL ONE (04:04)
[2023-02-21] MEDS ORDERED: MORPHINE 4 MG/ML SYR ONE (04:04)
[2023-02-21] MEDS ORDERED: NA CHLORIDE 0.9% 1,000 ML ONE (04:05)
[2023-02-21] MEDS ORDERED: PIPERACIL/TAZO 3.375 GM VIAL IV ONE (04:12)
--- NOTE | 2023-02-21 04:41 | P.HP ---
Certification for Inpatient Patient admitted to: Inpatient With expected LOS: >2 Midnights Practitioner: I am a practitioner with admitting privileges, knowledge of patient current condition, hospital course, and medical plan of care. Services: Services provided to patient in accordance with Admission requirements found in Title 42 Section 412.3 of the Code of Federal Regulations Patient History Date of Service: 02/21/23 Reason for admission: Facial Swelling History of Present Illness: 77-year-old male with a past medical history of hypertension, hyperlipidemia, paroxysmal A-fib, status post pacemaker, on Eliquis and amiodarone, history of CHF, came to ER with pain and swelling of the left side of the face which has been progressively worsening over the last 3 days. Denies any fever or chills. No nausea vomiting or diarrhea. No chest pain or shortness of breath. Difficulty in chewing. Patient was assessed in the ER and was admitted for further management of po ssible left facial cellulitis and to rule out acute parotitis Allergies metformin [From Glucophage] Allergy (Verified 06/19/20 11:25) Passed out metoprolol Adverse Reaction (Verified 06/19/20 11:25) Passed out steroids Allergy (Unknown, Uncoded 06/19/20 11:25) Unknown Home medications list reviewed: Yes Home Medications: Amiodarone HCl [Cordarone*] 200 mg PO DAILY 10/19/17 Apixaban [Eliquis *] 2.5 mg PO BID 10/19/17 Spironolactone [Aldactone*] 25 mg PO BID 10/19/17 glipiZIDE [Glipizide] 5 mg PO DAILY 10/19/17 Mens Multivitamin 1 tab PO DAILY 05/09/20 Vit C/E/Zn/Coppr/Lutein/Zeaxan [Preservision Areds 2 Softgel] 1 cap PO BID 05/09/20 Sertraline HCl 25 mg PO DAILY 05/27/21 Gabapentin [Neurontin*] 100 mg PO BID 07/01/21 Cephalexin [Keflex] 500 mg PO Q6HR 8 Days #32 cap 07/03/21 - Past Medical/Surgical History Diabetic: Yes Past Medical History: Reviewed- Non-Contributory -: History CVA -: Atrial fibrillation now with pacemaker -: DM -: HTN -: PVD -: GERD -: Moderate pulmonary hypertension -: CHF, diastolic dysfunction Past Surgical History: Reviewed- Non-Contributory -: R. total knee replacement -: kristian. cataract sx -: Right thigh staph inf. -: L. big toe amputated -: Back sx Psychosocial/ Personal History: The patient is . - Family History Family History: Reviewed- Non-Contributory - Family History Mother -: Heart disease Father -: Heart disease Brother -: Heart disease, Hypertension, Diabetes, Cancer - Social History Smoking Status: Never smoker Alcohol use: No CD- Drugs: No Caffeine use: No Review of Systems 10-point ROS is otherwise unremarkable General: Unremarkable Eyes: Unremarkable ENT: Other (Facial pain and swelling ) Cardiovascular: Unremarkable Gastrointestinal: Unremarkable Genitourinary: Unremarkable Musculoskeletal: Unremarkable Physical Examination - Vital Signs Temperature: 98.6 F Blood Pressure: 142/76 Pulse: 78 Respirations: 18 Pulse Ox (%): 96 - Physical Exam General: Alert, Cooperative, Mild distress HEENT: Atraumatic, Normocephalic, Other (Left Parotid swelling ) Neck: Supple Respiratory: Clear to auscultation bilaterally, Normal air movement Cardiovascular: Regular rate/rhythm, Normal S1 S2, No murmurs Capillary refill: <2 Seconds Gastrointestinal: Soft and benign, W/out hepatosplenomegaly, No tenderness, No masses Musculoskeletal: No clubbing, No swelling Integumentary: No rashes, No breakdown Neurological: Other (Alert, Awake ) Lymphatics: No axilla or inguinal lymphadenopathy - Studies Laboratory Data (last 24 hrs) 02/20/23 02/20/23 02/20/23 23:35 23:35 23:35 WBC 14.80 H Hgb 10.3 L Hct 31.4 L Plt Count 247 PT 21.0 H INR 1.95 APTT 39.2 H Sodium 140 Potassium 4.0 BUN 22 H Creatinine 1.56 H Glucose 128 H Total Bilirubin 0.9 AST 8 L ALT 13 L Alkaline Phosphatase 109 Assessment and Plan - Problems (Diagnosis) (1) Parotitis, acute Current Visit: Yes Status: Acute Plan: Started on IV antibiotic Pain control Monitor closely May need an ENT consult if not responding to conservative measures (2) Facial cellulitis Current Visit: Yes Status: Acute Plan: Continue antibiotics Pain control Obtain cultures Change antibiotic as per sensitivity (3) A-fib Onset Date: 08/28/15 Current Visit: No Status: Chronic Plan: Continue home medications amiodarone Will hold Eliquis for now Started on Lovenox Monitor closely on telemetry Qualifiers: (4) Chronic low back pain Onset Date: 10/19/17 Current Visit: No Status: Chronic Plan: Continue home medications and titrate as needed (5) Diabetes mellitus Onset Date: 11/29/17 Current Visit: No Status: Chronic Plan: Insulin sliding scale Will get an A1c Accu-Chek before every meal and at bedtime Acute renal insufficiency Will give slow hydration Mild elevation of renal parameters monitored Monitor electrolytes and replace accordingly (6) Hypertension Onset Date: 08/28/15 Current Visit: No Status: Chronic Plan: Continue home medications and titrate as needed History of CHF Monitor closely telemetry Qualifiers: Hypertension type: essential hypertension Qualified Code(s): I10 - Essential (primary) hypertension Discharge Plan: Home Plan to discharge in: Greater than 2 days - Advance Directives Does patient have a Living Will: No Does patient have a Durable POA for Healthcare: Yes - Code Status/Comfort Care Code Status: Full Code Time Spent Managing Pts Care (In Minutes): 56
[2023-02-21] MEDS ORDERED: MORPHINE 2 MG/ML SYR IV PRN (05:27)
[2023-02-21] MEDS ORDERED: ONDANSETRON 4 MG/2 ML VIAL IV PRN (05:27)
[2023-02-21] MEDS ORDERED: ACETAMINOPHEN 500 MG TAB PO PRN (05:27)
[2023-02-21] MEDS: NA CHLORIDE 0.9% 1,000 ML IV SCH (06:00)
[2023-02-21] MEDS ORDERED: VANCOMYCIN 1 GM in NA CHLORIDE 0.9% 250 ML IVPB SCH ×2 (06:00→20:00)
[2023-02-21] MEDS ORDERED: VANCOMYCIN 2 GM in NA CHLORIDE 0.9% 500 ML IVPB SCH (07:00)
[2023-02-21] MEDS: INSULIN REGULAR (HUMAN) 100 UNIT/ML SQ SCH ×4 (07:30→20:25)
[2023-02-21] MEDS ORDERED: MORPHINE 2 MG/ML SYR ONE (07:34)
[2023-02-21] MEDS ORDERED: VANCOMYCIN 1 GM in NA CHLORIDE 0.9% 250 ML IVPB ONE ×2 (08:00→16:00)
[2023-02-21] MEDS ORDERED: CEFEPIME 1 GM in NA CHLORIDE 0.9% 100 ML IV SCH ×2 (09:00→11:00)
[2023-02-21] MEDS ORDERED: SPIRONOLACTONE 25 MG TABLET PO SCH (09:00)
[2023-02-21] MEDS ORDERED: SERTRALINE HCL 50 MG TAB PO SCH (09:00)
[2023-02-21] MEDS ORDERED: AMIODARONE HCL 200 MG TAB PO SCH (09:00)
[2023-02-21] MEDS ORDERED: GABAPENTIN 100 MG CAP PO SCH (09:00)
[2023-02-21] MEDS: LACTOBACILLUS/ACIDOPHILUS TAB PO SCH ×3 (10:24→20:28)
[2023-02-21 11:04] LABS: Specific Gravity 1.021 (1.005-1.030); Urine Bilirubin NEGATIVE (Negative); Urine Blood Negative (Negative); Urine Clarity Clear (Clear); Urine Color Yellow (Yellow); Urine Glucose NEGATIVE (Negative); Urine Protein NEGATIVE (Negative); Urine Urobilinogen 1+ (Normal); Urine pH 5.5 (5.0-7.0)
[2023-02-21] MEDS: HYDROMORPHONE HCL 0.5 MG/0.5 ML INJ IV PRN ×2 (13:21→23:59)
[2023-02-21] MEDS: CEFEPIME 1 GM in NA CHLORIDE 0.9% 100 ML IV SCH (13:22)
[2023-02-21] MEDS: AMIODARONE HCL 200 MG TAB PO SCH (13:23)
[2023-02-21] MEDS: SERTRALINE HCL 50 MG TAB PO SCH (13:23)
--- NOTE | 2023-02-21 13:35 | P.PN ---
Subjective Date of Service: 02/21/23 Chief Complaint: Facial Swelling reports facial pain, will add prn analgesics, no reported shortness of breath, rouble swallowing Admitted after midnight, labs, orderes, treatment reviewed. - Physical Exam General: Alert, Cooperative, Mild distress HEENT: Atraumatic, Normocephalic, Other (Left Parotid swelling ) Neck: Supple Respiratory: Clear to auscultation bilaterally, Normal air movement Cardiovascular: Regular rate/rhythm, Normal S1 S2, No murmurs Capillary refill: <2 Seconds Gastrointestinal: Soft and benign, W/out hepatosplenomegaly, No tenderness, No masses Musculoskeletal: No clubbing, No swelling Integumentary: No rashes, No breakdown Neurological: Other (Alert, Awake ) Lymphatics: No axilla or inguinal lymphadenopathy <Tamara Barbour - Last Filed: 02/21/23 13:31> Date of Service: 02/22/23 <Leigh Ann Morris - Last Filed: 02/22/23 13:18> Review of Systems per HPI <Tamara Barbour - Last Filed: 02/21/23 13:31> Physical Examination - Vital Signs Temperature: 98.2 F Blood Pressure: 116/81 Pulse: 81 Respirations: 16 Pulse Ox (%): 97 - Studies Laboratory Data (last 24 hrs) 02/20/23 02/20/23 02/20/23 23:35 23:35 23:35 WBC 14.80 H Hgb 10.3 L Hct 31.4 L Plt Count 247 PT 21.0 H INR 1.95 APTT 39.2 H Sodium 140 Potassium 4.0 BUN 22 H Creatinine 1.56 H Glucose 128 H Total Bilirubin 0.9 AST 8 L ALT 13 L Alkaline Phosphatase 109 <Tamara Barbour - Last Filed: 02/21/23 13:31> Assessment And Plan - Current Problems (Diagnosis) (1) Parotitis, acute Current Visit: Yes Status: Acute (2) CHF (congestive heart failure) Onset Date: 07/30/16 Current Visit: No Status: Acute Qualifiers: Qualified Code(s): I50.33 - Acute on chronic diastolic (congestive) heart failure (3) Chest pain Onset Date: 05/07/15 Current Visit: No Status: Acute (4) Cholecystitis Onset Date: 11/29/17 Current Visit: No Status: Acute (5) Chronic kidney disease, stage 3 Current Visit: No Status: Acute (6) History of CVA (cerebrovascular accident) Current Visit: No Status: Acute (7) A-fib Onset Date: 08/28/15 Current Visit: No Status: Chronic Qualifiers: (8) Cerebrovascular accident (stroke) Onset Date: 07/03/14 Current Visit: No Status: Chronic Qualifiers: CVA mechanism: unspecified Qualified Code(s): I63.9 - Cerebral infarction, unspecified (9) Diabetes mellitus Onset Date: 11/29/17 Current Visit: No Status: Chronic (10) Hypertension Onset Date: 08/28/15 Current Visit: No Status: Chronic Qualifiers: Hypertension type: essential hypertension Qualified Code(s): I10 - Essential (primary) hypertension (11) Obesity (BMI 30-39.9) Current Visit: No Status: Chronic (12) Pulmonary hypertension Onset Date: 01/07/17 Current Visit: No Status: Chronic (13) Anemia of chronic disease Current Visit: Yes Status: Acute - Plan Plan: 1. Continue with IV hydration. 2. Continue with IV antibiotics 3. Strict blood pressure and blood sugar control 4. Monitor renal function closely 5. Patient with leukocytosis and will continue monitoring white blood cell count. Some of it related to deep margination 6. Continue monitoring H&H; patient with normocytic normochromic anemia. Most likely related to chronic kidney disease. Continue monitoring as an outpatient 7. GI DVT prophylaxis Discharge Plan: Home Plan to discharge in: Greater than 2 days - Code Status/Comfort Care Code Status Assessed: Yes Code Status: Full Code Critical Care: No Time Spent Managing PTS Care (In Minutes): 35 <Leigh Ann Morris - Last Filed: 02/22/23 13:18>
--- NOTE | 2023-02-21 15:21 | CON ---
Date of Consultation: 02/21/2023 Chief Complaint: Left facial pain and swelling. History Of Present Illness: Patient is a 77-year-old male with a history of hypertension, hyperlipidemia, paroxysmal AFib, status post pacemaker, history of CHF, who presented to the emergency room with acute onset of left facial pain and swelling, which had worsened over the last 48 to 72 hours. He was using ice packs to decrease the swelling, but it worsened and he presented to the emergency room. He was subsequently admitted to inpatient room for acute parotitis and facial cellulitis and I was consulted for further evaluation to assess possible abscess. Upon arrival to bedside, he is in no acute distress, but in moderate to severe pain due to left facial swelling and erythema. He denies nausea, vomiting, diarrhea, chest pain, or shortness of breath. He also denies any fevers or chills. This is his first episode of left facial pain and swelling. He has not had this before. He denies any oral cavity infection. He does report difficulty chewing food, but denies odynophagia or dysphagia. No other ENT complaints today. Past Medical History And Past Surgical History: CVA, atrial fibrillation, now with pacemaker, diabetes mellitus, hypertension, peripheral vascular disease, GERD, moderate pulmonary hypertension, CHF with diastolic dysfunction, right total knee replacement, bilateral cataract surgery, right thigh staph infection, left big toe amputation, back surgery. Allergies: METFORMIN, METOPROLOL, STEROIDS. Home Medications: Amiodarone, Eliquis, spironolactone, glipizide, multivitamin, sertraline, gabapentin, cephalexin. Psychosocial And Personal History: Patient is and lives with his . Family History: Positive, mother for heart disease. Positive, father for heart disease. Positive; brother for heart disease, hypertension, diabetes, cancer. Social History: Denies tobacco, alcohol, illicit drugs. Review of Systems: General: Moderate left facial pain, but denies fever or lethargy. Eyes: Denies drainage, blurred or double vision. Ears: Denies otorrhea, otalgia, or hearing loss. Nose: Denies rhinorrhea, nasal congestion, postnasal drip. Throat: Positive for difficulty chewing and pain with jaw opening. Face: Positive for left facial pain, erythema, swelling. Neck: Negative for enlarged lymph nodes, swelling, airway difficulty. Physical Examination: Vital Signs: Stable. General: Patient is awake, alert, and oriented to person, place, and time. Eyes: PERRLA/EOMI. Ears: Bilateral external auditory canals patent. Tympanic membranes intact. Head: Atraumatic, normocephalic. Nose: Midline septum. Moist intranasal mucosa. No exudate. Oral Cavity: Moderate to severe dry oral cavity with evidence of yellow mucopurulence from left Stensen's duct, which was expressed during exam. Neck: Supple. Trachea midline. Face: Diffuse left preauricular cheek swelling, erythema, which extends to the left mandibular angle and exquisitely tender to touch. Imaging: CT scans of the facial bones and soft tissue neck were reviewed. Patient has diffuse left parotid gland swelling, but no evidence of sialolithiasis or fluid collection to suggest abscess. Paranasal sinuses are clear. Mastoid cavities are also clear. No effusion. Laboratory Data: White blood cell count 14.8, hemoglobin 10.3, hematocrit 31.4, and platelets are 247. PT 21.0, INR 1.95, and PTT 39.2. Elevated BUN and creatinine at 22 and 1.56 respectively. Diagnosis: Acute left parotitis. Recommendations: 1. Patient is currently on Maxipime and vancomycin IV. Recommend continuing for the next 24 to 48 hours. 2. Watch for development of abscess within a 48-hour period and incise and drain as needed. 3. Recommend lemon wedges and increasing fluid slightly. 4. Recommend warm compresses 20 minutes t.i.d. to the left facial cheek. 5. Recommend converting to oral Augmentin or clindamycin and treat for 10 days b.i.d. in outpatient setting. 6. Recommend outpatient followup in 2 weeks. 7. We will follow as needed p.r.n. suspected abscess. Thank you for this most interesting consultation. CY/AZEB Voice ID: [id number] Report ID: [id number] [id number]
[2023-02-21] MEDS ORDERED: dexAMETHasone 10 MG/ML VIAL IV ONE (16:00)
[2023-02-21] MEDS ORDERED: ENOXAPARIN 40 MG/0.4 ML SQ SCH (17:00)
[2023-02-21] MEDS: dexAMETHasone 4 MG/ML VIAL IV SCH ×2 (18:31→23:58)
[2023-02-21] MEDS: ENOXAPARIN 40 MG/0.4 ML SQ SCH (18:31)
[2023-02-21 19:22] VITALS: BMI 29.8
[2023-02-21] MEDS: SPIRONOLACTONE 25 MG TABLET PO SCH (20:28)
[2023-02-21] MEDS: GABAPENTIN 100 MG CAP PO SCH (20:28)
[2023-02-22] MEDS: CEFEPIME 1 GM in NA CHLORIDE 0.9% 100 ML IV SCH ×2 (01:17→13:51)
[2023-02-22] MEDS: NA CHLORIDE 0.9% 1,000 ML IV SCH (01:17)
[2023-02-22] MEDS: dexAMETHasone 4 MG/ML VIAL IV SCH ×2 (05:27→12:35)
[2023-02-22 07:35] LABS: Absolute Lymphocytes (CBC) 0.8 K/uL (0.7-4.9); Hematocrit 30.8 % (39.6-49.0); Lymphocytes % 3.7 % (15.3-44.8); MCV 93.1 fL (80-100); MPV 7.1 fL (7.6-11.3); Platelets 240 thou/uL (152-406); RBC Red Blood Cell Count 3.31 M/uL (4.33-5.43)
[2023-02-22 07:56] LABS: Albumin 2.5 g/dL (3.4-5.0); Potassium 4.5 mEq/L (3.5-5.1)
[2023-02-22] MEDS ORDERED: VANCOMYCIN 2 GM in NA CHLORIDE 0.9% 500 ML IVPB SCH (08:00)
[2023-02-22] MEDS: LACTOBACILLUS/ACIDOPHILUS TAB PO SCH ×3 (08:30→21:14)
[2023-02-22] MEDS: INSULIN REGULAR (HUMAN) 100 UNIT/ML SQ SCH ×4 (08:42→21:17)
[2023-02-22] MEDS: AMIODARONE HCL 200 MG TAB PO SCH (08:43)
[2023-02-22] MEDS: SERTRALINE HCL 50 MG TAB PO SCH (08:43)
[2023-02-22] MEDS: SPIRONOLACTONE 25 MG TABLET PO SCH (08:43)
[2023-02-22] MEDS: GABAPENTIN 100 MG CAP PO SCH ×2 (08:43→21:14)
[2023-02-22 08:57] LABS: Blood Morphology Comment NOT SEEN (NOT SEEN); Dohle Bodies PRESENT; Platelet Estimate ADEQ; White Blood Cell Scan OK (OK)
[2023-02-22] MEDS ORDERED: CEFEPIME 1 GM in NA CHLORIDE 0.9% 100 ML IV ONE (10:25)
--- NOTE | 2023-02-22 11:17 | RAD REPORT ---
EXAM DESCRIPTION: CT - Soft Tissue Neck Wo Contr - 02/21/2023 6:46 am CLINICAL HISTORY: SWELLING COMPARISON: None. TECHNIQUE: CT NECK WITHOUT IV CONTRAST on 02/20/2023 11:21 PM FACULTY DEAN This exam was performed according to our departmental dose-optimization program, which includes autom ated exposure control, adjustment of the mA and/or kV according to patient size and/or use of iterati ve reconstruction technique. FINDINGS: The visualized portions of the brain and orbits are normal. The oral cavity, oropharynx and nasopharynx are normal. The parapharyngeal fat planes are preserved . The hypopharynx is unremarkable. The parotid and submandibular glands are grossly within normal limits. No intrinsic mass lesions are seen. . The paranasal sinuses and mastoid air cells are clear. No definite pathologically enlarged lymph nodes are identified. The thyroid gland is normal in size and configuration. The left parotid gland is enlarged without associated mass or abscess. There i s stranding within the left facial subcutaneous fat from the level of the parotid gland inferiorly. The thoracic inlet is normal. The superior mediastinum and lung apices are normal. No acute osseous abnormalities are identified. IMPRESSION: Extensive left parotidis without abscess or mass. Electronically signed by: Edy Sevilla MD 02/21/2023 03:03 AM FACULTY DEAN Due to temporary technical issues with the PACS/Fluency reporting system, reports are being signed by the in house radiologists without review as a courtesy to insure prompt reporting. The interpreting radiologist is fully responsible for the content of the report
--- NOTE | 2023-02-22 11:18 | RAD REPORT ---
EXAM DESCRIPTION: RAD - Chest Single View - 02/20/2023 11:45 pm CLINICAL HISTORY: Left facial swelling TECHNIQUE: Frontal view of the chest. COMPARISON: No relevant prior studies available. FINDINGS: Lungs: Mild central pulmonary vascular and interstitial prominence and patchy bibasilar opacities. Pleural space: Small bilateral pleural effusions. No pneumothorax. Heart: The cardiac silhouette is enlarged, in part accentuated by portable technique. Mediastinum: Unremarkable. Normal mediastinal contour. Bones/joints: Unremarkable. No acute fracture. Vasculature: Thoracic aortic atherosclerosis. Tubes, lines and devices: Left chest wall dual-lead pacer. IMPRESSION: Constellation of findings which may be related to pulmonary congestion including small b ilateral pleural effusions. Superimposed infection not excluded. Electronically signed by: Vannessa Yu MD 02/21/2023 12:03 AM EQUIPMENT OPERATOR [employer] Due to temporary technical issues with the PACS/Fluency reporting system, reports are being signed by the in house radiologists without review as a courtesy to insure prompt reporting. The interpreting radiologist is fully responsible for the content of the report
--- NOTE | 2023-02-22 11:23 | RAD REPORT ---
EXAM DESCRIPTION: CT - Facial Bones W/ Mpr - 02/21/2023 6:46 am CLINICAL HISTORY: The patient is 77 years old and is Male; SWELLING TECHNIQUE: Axial computed tomography images of the face without intravenous contrast. Sagittal and coronal reformatted images were created and reviewed. This CT exam was performed using one or more of the following dose reduction techniques: automated exposure control, adjustment of the mA and/o r kV according to patient size, and/or use of iterative reconstruction technique. COMPARISON: No relevant prior studies available. FINDINGS: Bones/joints: No acute fracture. Soft tissues: Unremarkable. Orbits: Unremarkable. Submandibular/parotid glands: Enlarged left parotid gland with adjacent stranding suggestive of p arotitis. Sinuses: Unremarkable. No air-fluid levels. IMPRESSION: Enlarged left parotid gland with adjacent stranding suggestive of parotitis. Electronically signed by: Daniel Huntley MD 02/21/2023 02:30 AM PARKING INSPECTOR Due to temporary technical issues with the PACS/Fluency reporting system, reports are being signed by the in house radiologists without review as a courtesy to insure prompt reporting. The interpreting radiologist is fully responsible for the content of the report
--- NOTE | 2023-02-22 13:23 | P.PN ---
Date of Service: 02/22/23 Subjective Patient is doing a lot better. Patient states his pain is much improved. Continue with current plan of care with antibiotics and anti-inflammatories. Appreciate ENT input. Recommending switching him to oral antibiotics over the next 24 to 48 hours. Will probably switch him over to Augmentin for 2 weeks with outpatient ENT follow-up in 2 weeks. Physical Examination - Vital Signs Reviewed - Physical Exam General: Alert, Cooperative, Mild distress HEENT: Atraumatic, Normocephalic, Other (Left Parotid swelling ) Neck: Supple; mild left anterior cervical lymphadenopathy Respiratory: Clear to auscultation bilaterally, Normal air movement Cardiovascular: Regular rate/rhythm, Normal S1 S2, No murmurs Gastrointestinal: Soft and benign, W/out hepatosplenomegaly, No tenderness, No masses Musculoskeletal: No clubbing, No swelling Integumentary: Rash from the left parotid gland extending down the towards the sternal region of the chest Neurological: No focal deficits Assessment And Plan - Current Problems (Diagnosis) (1) Parotitis, acute Current Visit: Yes Status: Acute (2) CHF (congestive heart failure) Onset Date: 07/30/16 Current Visit: No Status: Acute Qualifiers: Qualified Code(s): I50.33 - Acute on chronic diastolic (congestive) heart failure (3) Chest pain Onset Date: 05/07/15 Current Visit: No Status: Acute (4) Cholecystitis Onset Date: 11/29/17 Current Visit: No Status: Acute (5) Chronic kidney disease, stage 3 Current Visit: No Status: Acute (6) History of CVA (cerebrovascular accident) Current Visit: No Status: Acute (7) A-fib Onset Date: 08/28/15 Current Visit: No Status: Chronic (8) Anemia of chronic disease Current Visit: Yes Status: Acute (9) Diabetes mellitus Onset Date: 11/29/17 Current Visit: No Status: Chronic (10) Hypertension Onset Date: 08/28/15 Current Visit: No Status: Chronic Hypertension type: essential hypertension Qualified Code(s): I10 - Essential (primary) hypertension (11) Obesity (BMI 30-39.9) Current Visit: No Status: Chronic (12) Pulmonary hypertension Onset Date: 01/07/17 Current Visit: No Status: Chronic - Plan Continue with plan of care as mentioned below: 1. Continue with IV hydration. 2. Continue with IV antibiotics 3. Strict blood pressure and blood sugar control 4. Monitor renal function closely 5. Patient with leukocytosis and will continue monitoring white blood cell count. Some of it related to demargination 6. Continue monitoring H&H; patient with normocytic normochromic anemia. Most likely related to chronic kidney disease. Continue monitoring as an outpatient 7. GI DVT prophylaxis Discharge Plan: Home Plan to discharge in: Greater than 2 days - Code Status/Comfort Care Code Status Assessed: Yes Code Status: Full Code Critical Care: No Time Spent Managing PTS Care (In Minutes): 25
[2023-02-22] MEDS: ENOXAPARIN 40 MG/0.4 ML SQ SCH (16:25)
[2023-02-23] MEDS: NA CHLORIDE 0.9% 1,000 ML IV SCH (00:17)
[2023-02-23] MEDS: CEFEPIME 1 GM in NA CHLORIDE 0.9% 100 ML IV SCH (01:40)
[2023-02-23] MEDS: SERTRALINE HCL 50 MG TAB PO SCH (09:04)
[2023-02-23] MEDS: AMIODARONE HCL 200 MG TAB PO SCH (09:04)
[2023-02-23] MEDS: GABAPENTIN 100 MG CAP PO SCH (09:04)
[2023-02-23] MEDS: LACTOBACILLUS/ACIDOPHILUS TAB PO SCH (09:05)
[2023-02-23] MEDS: INSULIN REGULAR (HUMAN) 100 UNIT/ML SQ SCH (09:10)
[2023-02-23 09:19] VITALS: BP 132/60; TEMP 97.6
[2023-02-23 09:34] VITALS: O2SAT 96
[2023-02-23] MEDS ORDERED: VANCOMYCIN 2 GM in NA CHLORIDE 0.9% 500 ML IVPB SCH (18:00)
== END 2023-02-23 11:30 | disposition home or self-care (01) | DRG 154 ==
LOC: ER 22:36 → ERHOLD 02-21 05:39 → 2ND 02-21 07:26
PROVIDERS: ADMIT Family Medicine; ATTEND Hospitalist
DX: K11.21 Acute sialoadenitis (principal); I50.33 Acute on chronic diastolic (congestive) heart failure; L03.211 Cellulitis of face; I13.0 Hypertensive heart and chronic kidney disease with heart failure and stage 1 through stage 4 chronic kidney disease, or unspecified chronic kidney disease; K81.0 Acute cholecystitis; N18.30 Chronic kidney disease, stage 3 unspecified; E11.22 Type 2 diabetes mellitus with diabetic chronic kidney disease; E11.51 Type 2 diabetes mellitus with diabetic peripheral angiopathy without gangrene; D63.1 Anemia in chronic kidney disease; I48.0 Paroxysmal atrial fibrillation; I27.20 Pulmonary hypertension, unspecified; E66.9 Obesity, unspecified; K21.9 Gastro-esophageal reflux disease without esophagitis; G89.29 Other chronic pain; M54.50 Low back pain, unspecified; Z95.0 Presence of cardiac pacemaker; Z79.84 Long term (current) use of oral hypoglycemic drugs; Z79.01 Long term (current) use of anticoagulants; Z68.32 Body mass index [BMI] 32.0-32.9, adult; Z86.73 Personal history of transient ischemic attack (TIA), and cerebral infarction without residual deficits; Z90.49 Acquired absence of other specified parts of digestive tract; Z87.891 Personal history of nicotine dependence; Z79.899 Other long term (current) drug therapy; Z96.651 Presence of right artificial knee joint; Z89.412 Acquired absence of left great toe
CPT/HCPCS: 36415; 70486; 70490; 71045; 76377; 80053; 80202; 81003; 82947; 83605; 83735; 84145; 85025; 85610; 85730; 87040; 87077; 87186; 87205; 93005; 94760; 96365; 96367; 96375; 99284; J0295; J0692; J1100; J1170; J1650; J1815; J2270; J2405; J2543; J7030; J7040; J7050

== ENCOUNTER 2023-09-20 14:54 | Inpatient (IN) | payer OTHER ==
[2023-09-20 16:02] LABS: Absolute Eosinophils 0.1 K/uL (0-0.5); Absolute Lymphocytes (CBC) 0.7 K/uL (0.7-4.9); Absolute Monocytes 1.8 K/uL (0.1-1.3); Absolute Neutrophil 5.3 K/uL (1.8-8.0); Basophils % 0.4 % (0-1.3); Eosinophils % 0.7 % (0-4.4); Hematocrit 25.2 % (39.6-49.0); MCH 29.5 pg (27.0-35.0); MCHC 31.8 g/dL (32.0-36.0); MCV 92.8 fL (80-100); MPV 7.1 fL (7.6-11.3); Monocytes % 22.9 % (3.3-12.3); Platelets 194 thou/uL (152-406); RBC Red Blood Cell Count 2.71 M/uL (4.33-5.43); Red Cell Distribution Width 16.7 % (12.1-15.2)
[2023-09-20 16:11] LABS: PT Prothrombin Time 20.8 SECONDS (9.4-12.5)
[2023-09-20 16:12] LABS: Protime INR 1.89
[2023-09-20 16:26] LABS: ALT/SGPT < 14 U/L (16-61); AST/SGOT 11 U/L (15-37); Albumin 2.8 g/dL (3.4-5.0); Albumin/Globulin Ratio 0.8 (1.1-1.8); Alkaline Phosphatase 89 U/L (45-117); Anion Gap 8.9 mEq/L (5.0-15.0); BUN Blood Urea Nitrogen 30 mg/dL (7-18); Bicarbonate 23 mEq/L (21-32); Bilirubin Direct 0.3 mg/dL (0-0.2); Bilirubin Indirect, Calculated 0.4 mg/dL (0.2-0.8); Bilirubin Total 0.7 mg/dL (0.2-1.0); Globulin 3.6 g/dL (2.3-3.5); Glomerular Filtration Rate 35 ml/min (=/>90); Glucose Level 95 mg/dL (74-106); Magnesium 1.8 mg/dL (1.6-2.4); NT PRO-BNP 2872 pg/mL (<450); Potassium 3.9 mEq/L (3.5-5.1); Protein, Total 6.4 g/dL (6.4-8.2); Sodium Level 140 mEq/L (136-145); Troponin High Sensitivity 10.5 pg/mL (<58.9)
--- NOTE | 2023-09-20 16:45 | RAD REPORT ---
EXAM DESCRIPTION: CT - Head C Spine Mpr Wo Con - 09/20/2023 4:10 pm CLINICAL HISTORY: Head and neck injury status post fall. Head and neck pain COMPARISON: [address] TECHNIQUE: Computed axial tomography of the head and cervical spine was obtained. Sagittal and coronal reconstruction was performed. All CT scans are performed using dose optimization technique as appropriate and may include automated exposure control or mA/KV adjustment according to patient size. FINDINGS: An intracranial bleed is not seen. The ventricles are normal in caliber. Moderate to large old left occipital lobe infarction. An extra-axial fluid collection is not noted. Fluid within the visualized sinuses and mastoids is not seen A cervical fracture is not visualized. No dislocation is noted. IMPRESSION: No acute intracranial abnormality is seen. A cervical fracture is not visualized. If the patient continues to have symptoms to suggest intracranial /spinal cord pathology then MRI wou ld be recommended
--- NOTE | 2023-09-20 16:50 | RAD REPORT ---
EXAM DESCRIPTION: Ritu Single View09/20/2023 3:59 pm CLINICAL HISTORY: Chest pain COMPARISON: February 2023 FINDINGS: The lungs appear clear of acute infiltrate. The heart is mildly enlarged. Pacemaker leads are in place. IMPRESSION: No acute abnormalities displayed
[2023-09-20 17:12] LABS: Differential Total Cells Count 100; Eosinophils 2 % (0-3); Lymphocytes 9 % (15-42); Monocytes 22 % (0-10); Segmented Neutrophils 67 % (40-80)
[2023-09-20 17:13] LABS: Anisocytosis 1+; Blood Morphology Comment NOTED (NOT SEEN); Hypochromasia 2+; Platelet Estimate ADEQ
--- NOTE | 2023-09-20 18:14 | EDPHYS ---
Physician Documentation [facility] Name: Ely Coley Age: 78 yrs Sex: Male : 1945 Arrival Date: 09/20/2023 Time: 14:54 Bed 8 Private MD: ED Physician Sterling Fonseca HPI: 09/19 17:46 This 78 yrs old Male presents to ER via EMS with complaints of Fall Injury. rt 17:46 Patient presents to the ED with frequent falls. The patient reportedly had about 4 rt falls this week. This is presenting transported. EMS states that the patient had a glucose of 30, improved to 117 with oral glucose. Patient does take a sulfonylurea, denied breakfast this morning. He denies hitting his head but states that he does not remove the fall. Denies other acute complaints at this time, symptoms are moderate in severity, no other aggravating alleviating factors. Historical: - Allergies: 15:09 Glucophage; rs5 15:09 metformin; rs5 15:09 steroids; rs5 - PMHx: 15:09 Atrial fibrillation; Hypertensive disorder; hyperthyroidism; diabetes mellitus; rs5 - PSHx: 15:09 toe amputation bilat (diabetes mellitus ); dementia (diabetes mellitus ); rs5 - Immunization history:: Adult Immunizations up to date. - Infectious Disease History:: Denies. - Social history:: Smoking status: Patient denies any tobacco usage or history of. - Family history:: not pertinent. ROS: 17:46 Unable to obtain ROS due to baseline dementia, rt Exam: 17:46 Constitutional: This is a well developed, well nourished patient who is awake, alert, rt and in no acute distress. Head/Face: Normocephalic, atraumatic. Chest/axilla: Normal chest wall appearance and motion. Nontender with no deformity. No lesions are appreciated. Cardiovascular: Regular rate and rhythm with a normal S1 and S2. No gallops, murmurs, or rubs. Normal PMI, no JVD. No pulse deficits. Respiratory: Lungs have equal breath sounds bilaterally, clear to auscultation and percussion. No rales, rhonchi or wheezes noted. No increased work of breathing, no retractions or nasal flaring. Abdomen/GI: Soft, non-tender, with normal bowel sounds. No distension or tympany. No guarding or rebound. No evidence of tenderness throughout. MS/ Extremity: Pulses equal, no cyanosis. Neurovascular intact. Full, normal range of motion. Neuro: Awake and alert, GCS 15, oriented to person, place, time, and situation. Cranial nerves II-XII grossly intact. Motor strength 5/5 in all extremities. Sensory grossly intact. Cerebellar exam normal. Normal gait. 17:46 ECG was reviewed by the Attending Physician. Vital Signs: 15:05 BP 158 / 77; Pulse 80; Resp 18; Temp 98.8(O); Pulse Ox 98% on R/A; rs5 17:06 BP 145 / 81; Pulse 77; Resp 18; Pulse Ox 99% on R/A; rs5 18:59 BP 142 / 77; Pulse 70; Resp 17; Temp 98; Pulse Ox 98% on R/A; rs5 MDM: 15:05 Patient medically screened. rt 18:14 Differential diagnosis: Frequent falls, weakness, rectal extremities, renal failure, rt hypoglycemia. Data reviewed: vital signs, nurses notes, lab test result(s), EKG, radiologic studies. Consideration of Admission/Observation Patient was admitted/placed on observation. Management of patient was discussed with the following: Hospitalist: Agrees to admit. I considered the following discharge prescriptions or medication management in the emergency department Medications were administered in the Emergency Department. See MAR. Independent interpretation of the following test(s) in the Emergency Department CT Scan: My interpretation is No intracranial hemorrhage seen on my interpretation CT scan images. Care significantly affected by the following chronic conditions: Atrial fibrillation. Counseling: I had a detailed discussion with the patient and/or guardian regarding the historical points, exam findings, and any diagnostic results supporting the discharge/admit diagnosis, lab results, radiology results, the need for further work-up and treatment in the hospital. Response to treatment: the patient's symptoms have markedly improved after treatment. 09/19 15:09 Order name: Basic Metabolic Panel; Complete Time: 16:42 rt 09/19 15: Order name: CBC with Diff; Complete Time: 17:29 rt 09/19 15: Order name: LFT's; Complete Time: 16:42 rt 09/19 15: Order name: Magnesium; Complete Time: 16:42 rt 09/19 15: Order name: NT PRO-BNP; Complete Time: 16:42 rt 08 15:09 Order name: PT-INR; Complete Time: 16:42 rt 09/19 15:09 Order name: Troponin HS; Complete Time: 16:42 rt 09/19 15:24 Order name: Glucose, Ancillary Testing; Complete Time: 16:42 EDMS 09/19 16:52 Order name: Glucose, Ancillary Testing; Complete Time: 16:56 EDMS 09/19 17:05 Order name: Manual Differential; Complete Time: 17:29 EDMS 09/19 18:44 Order name: Protime (+INR) EDMS 09/19 18:44 Order name: Urinalysis w/ reflexes EDMS 09/19 18:44 Order name: CBC with Automated Diff EDMS 09/19 18:44 Order name: CBC with Automated Diff EDMS 09/19 18:44 Order name: CBC with Automated Diff EDMS 09/19 18:44 Order name: Comprehensive Metabolic Panel EDMS 09/19 18:44 Order name: Comprehensive Metabolic Panel EDMS 09/19 18:44 Order name: Comprehensive Metabolic Panel EDMS 09/19 18:44 Order name: Magnesium EDMS 09/19 18:44 Order name: Magnesium EDMS 09/19 18:44 Order name: Magnesium EDMS 09/19 18:44 Order name: NT PRO-BNP EDMS 09/19 18:44 Order name: NT PRO-BNP EDMS 09/19 18:44 Order name: NT PRO-BNP EDMS 09/19 18:44 Order name: Troponin High Sensitivity EDMS 09/19 18:44 Order name: Troponin High Sensitivity EDMS 09/19 18:44 Order name: Troponin High Sensitivity EDMS 09/19 19:10 Order name: Glucose, Ancillary Testing EDMS 09/19 15:09 Order name: XRAY Chest (1 view); Complete Time: 16:56 rt 12 15:09 Order name: CT Head C Spine; Complete Time: 16:56 rt 09/19 18:40 Order name: CONS Physician Consult EDMS 09/19 18:44 Order name: Physical Therapy Consult EDMS 09/19 15:09 Order name: Cardiac monitoring; Complete Time: 15:53 rt 0812 15:09 Order name: EKG - Nurse/Tech; Complete Time: 15:53 rt 09/19 15:09 Order name: IV Saline Lock; Complete Time: 15:53 rt 09/19 15:09 Order name: Labs collected and sent; Complete Time: 15:53 rt 08 15:09 Order name: O2 Per Protocol; Complete Time: 15:53 rt 08 15:09 Order name: O2 Sat Monitoring; Complete Time: 15:53 rt 08 15:09 Order name: Misc. Order: feed patient meal; Complete Time: 15:25 rt EC:46 Rate is 66 beats/min. Rhythm is regular, Junctional rhythm with Occasional PVCs. Left rt axis deviation noted. QT interval is prolonged at 534 msec. No Q waves. Administered Medications: No medications were administered Disposition Summary: 09/20/23 18:14 Hospitalization Ordered Notes: Hospitalization Status: Observation rt Provider: Elfego Morales rt Location: Telemetry/MedSurg (observation) rt Condition: Stable rt Problem: an ongoing problem rt Symptoms: are unchanged rt Bed/Room Type: Standard rt Room Assignment: 220(09/20/23 18:56) eb Diagnosis - Frequent falls rt - Hypoglycemia rt Forms: - Medication Reconciliation Form rt - SBAR form rt - Leadership Thank You Letter rt Signatures: Dispatcher [employer] EDMS Jolie Gore eb Sterling Fonseca MD MD rt Miles Ken RN RN rs5 Corrections: (The following items were deleted from the chart) 15:09 15:09 BASIC METABOLIC PANEL+C.LAB.BRZ ordered. EDMS EDMS 15:09 15:09 CBC+H.LAB.BRZ ordered. EDMS EDMS 15:09 15:09 HEPATIC FUNCTION+C.LAB.BRZ ordered. EDMS EDMS 15:09 15:09 MAGNESIUM+C.LAB.BRZ ordered. EDMS EDMS 15:09 15:09 PROBNP+C.LAB.BRZ ordered. EDMS EDMS 15:09 15:09 PROTIME (+INR)+COAG.LAB.BRZ ordered. EDMS EDMS 15:09 15:09 Troponin High Sensitivity+C.LAB.BRZ ordered. EDMS EDMS 15:09 15:09 Chest Single View+RAD.RAD.BRZ ordered. EDMS EDMS 15:10 15:10 Head C Spine MPR Wo Con+CT.RAD.BRZ ordered. EDMS EDMS 17:05 16:09 CBC Smear Scan ordered. EDMS EDMS 18:56 18:14 rt eb
--- NOTE | 2023-09-20 18:14 | ER ---
Nurse's Notes [facility] Name: Ely Coley Age: 78 yrs Sex: Male : 1945 Arrival Date: 09/20/2023 Time: 14:54 Bed 8 Private MD: Diagnosis: Frequent falls;Hypoglycemia Presentation: 09/19 15:05 Chief complaint: EMS states: toned out EMS for frequent falls over last three rs5 days. BS in 30's on arrival, PO sugar solution adm to pt. Denies LOC of pain at this moment. Brusing noted on arms and legs bilat, pt states "I'm on some sort of blood thinner than makes me bruise like this". Coronavirus screen: At this time, the client does not indicate any symptoms associated with coronavirus-19. Ebola Screen: No symptoms or risks identified at this time. Initial Sepsis Screen: Does the patient meet any 2 criteria? No. Patient's initial sepsis screen is negative. Does the patient have a suspected source of infection? No. Patient's initial sepsis screen is negative. Risk Assessment: Do you want to hurt yourself or someone else? Patient reports no desire to harm self or others. Onset of symptoms was September 20, 2023. 15:05 Method Of Arrival: EMS: [facility] rs5 15:05 Acuity: MITCH 3 rs5 Historical: - Allergies: 15:09 Glucophage; rs5 15:09 metformin; rs5 15:09 steroids; rs5 - PMHx: 15:09 Atrial fibrillation; Hypertensive disorder; hyperthyroidism; diabetes mellitus; rs5 - PSHx: 15:09 toe amputation bilat (diabetes mellitus ); dementia (diabetes mellitus ); rs5 - Immunization history:: Adult Immunizations up to date. - Infectious Disease History:: Denies. - Social history:: Smoking status: Patient denies any tobacco usage or history of. - Family history:: not pertinent. Screenin:07 [facility] ED Fall Risk Assessment (Adult) History of falling in the last 3 months, rs5 including since admission Yes- fall prone (multiple falls) (3 pts) Confusion or Disorientation No (0 pts) Intoxicated or Sedated No (0 pts) Impaired Gait Yes (1 pt) Mobility Assist Device Used Yes (1 pt) Altered Elimination No (0 pt) Score/Fall Risk Level 3 or more points = High Risk Oriented to surroundings, Maintained a safe environment, Hourly rounding (assess needs \\T\\ fall precautionary measures) done, Used ambulatory aids as needed (educated on \\T\\ assisted with). Abuse screen: Denies threats or abuse. Nutritional screening: No deficits noted. Tuberculosis screening: No symptoms or risk factors identified. Assessment: 15:07 General: Appears in no apparent distress. comfortable, Behavior is calm, cooperative. rs5 Pain: Denies pain. Neuro: Level of Consciousness is awake, alert, obeys commands, Oriented to person, place, time, situation. Cardiovascular: Patient's skin is warm and dry. Respiratory: Airway is patent Respiratory effort is even, unlabored, Respiratory pattern is regular, symmetrical. GI: Abdomen is round non-distended, Abd is soft and non tender X 4 quads. : No signs and/or symptoms were reported regarding the genitourinary system. EENT: No signs and/or symptoms were reported regarding the EENT system. Derm: Skin is intact, Skin is dry, Skin is normal, Skin temperature is warm Bruising that is on arms and legs bilat pt states "I take blood thinners and so I bruise real easily.". 15:07 Musculoskeletal: Amputation of Other: right and left big toe Range of motion: intact in rs5 all extremities, pt states "I had an accident a few years ago and my toes were cut off". 15:10 Reassessment: to bedside for blood sugar check, blood sugar results 89, sand which, rs5 apple juice and crackers provided to pt. 15:37 Reassessment: Patient and/or family updated on plan of care and expected duration. Pain rs5 level reassessed. Patient is alert, oriented x 3, equal unlabored respirations, skin warm/dry/pink. 16:55 Reassessment: Patient and/or family updated on plan of care and expected duration. Pain rs5 level reassessed. Patient is alert, oriented x 3, equal unlabored respirations, skin warm/dry/pink. 18:01 Reassessment: No changes from previously documented assessment. rs5 18:59 Reassessment: Patient and/or family updated on plan of care and expected duration. Pain rs5 level reassessed. Patient is alert, oriented x 3, equal unlabored respirations, skin warm/dry/pink. Vital Signs: 15:05 BP 158 / 77; Pulse 80; Resp 18; Temp 98.8(O); Pulse Ox 98% on R/A; rs5 17:06 BP 145 / 81; Pulse 77; Resp 18; Pulse Ox 99% on R/A; rs5 18:59 BP 142 / 77; Pulse 70; Resp 17; Temp 98; Pulse Ox 98% on R/A; rs5 ED Course: 15:05 Patient arrived in ED. rs5 15:05 Sterling Fonseca MD is Attending Physician. rt 15:07 Patient has correct armband on for positive identification. Placed in gown. Bed in low rs5 position. Call light in reach. Side rails up X2. 15:07 No provider procedures requiring assistance completed. rs5 15:09 Triage completed. rs5 15:10 Miles Ken, RN is Primary Nurse. rs5 15:52 Initial lab(s) drawn, by md, sent to lab. Inserted saline lock: 20 gauge in right zm forearm, using aseptic technique. Blood collected. Flushed with 10 mL NS. 15:53 Basic Metabolic Panel Sent. zm 15:53 CBC with Diff Sent. zm 15:53 LFT's Sent. zm 15:53 Magnesium Sent. zm 15:53 NT PRO-BNP Sent. zm 15:53 PT-INR Sent. zm 15:53 Troponin HS Sent. zm 16:01 XRAY Chest (1 view) In Process Unspecified. EDMS 16:12 CT Head C Spine In Process Unspecified. EDMS 18:13 Elfego Morales MD is Hospitalizing Provider. rt Administered Medications: No medications were administered Medication: 17:06 VIS not applicable for this client. rs5 Outcome: 18:14 Decision to Hospitalize by Provider. rt 20:21 Patient left the ED. jb4 Signatures: Dispatcher [employer] EDMS Tramaine Zhang RN RN jb4 Shantal Henderson zm Sterling Fonseca MD MD rt Miles Ken, RN RN rs5 Corrections: (The following items were deleted from the chart) 19:00 18:59 BP 142 / 77; Pulse 70bpm; Resp 17bpm; Pulse Ox 98% RA; rs5 rs5
--- NOTE | 2023-09-20 18:36 | P.HP ---
Certification for Inpatient Patient admitted to: Inpatient With expected LOS: <2 Midnights Practitioner: I am a practitioner with admitting privileges, knowledge of patient current condition, hospital course, and medical plan of care. Services: Services provided to patient in accordance with Admission requirements found in Title 42 Section 412.3 of the Code of Federal Regulations Patient History Date of Service: 09/21/23 Reason for admission: Multiple falls History of Present Illness: 78 yrs old Male with a past medical history Atrial fibrillation; chronic anticoagulation hypertensive disorder; hyperthyroidism; diabetes mellitus; toe amputation bilat; dementia presents to the emergency room with frequent falls. at bedside is primary historian reports patient has had a recent pacemaker replacement, also has had some hypoglycemia. Is on glipizide, report he has had frequent falls. He has moderate bilateral upper extremity bruising from chronic anticoagulation. He denies hitting his head, he denies pain with range of motion, he denies deformity, no confusion or dizziness. reports he does not wear his shoes when ambulating. The patient reports he he does not wear shoes intentionally because he does not want to. EMS states patient had a hypoglycemia of 30, was given oral glucose increased to 117. No reported chest pain, shortness of breath, fever. Plan to admit for frequent falls, physical therapy for DME needs, and will consult cardiology to eval pacemaker. 5 BP 158 / 77; Pulse 80; Resp 18; Temp 98.8(O); Pulse Ox 98% on R/A; EKG 66 beats/min. Rhythm is regular, Junctional rhythm with Occasional PVCs. Left axis deviation noted. QT interval is prolonged at 534 msec. No Q waves Allergies metformin [From Glucophage] Allergy (Verified 06/19/20 11:25) Passed out metoprolol Adverse Reaction (Verified 06/19/20 11:25) Passed out steroids Allergy (Unknown, Uncoded 06/19/20 11:25) Unknown Home Medications: Amiodarone HCl [Cordarone*] 200 mg PO DAILY 10/19/17 Apixaban [Eliquis *] 2.5 mg PO BID 10/19/17 Spironolactone [Aldactone*] 25 mg PO BID 10/19/17 glipiZIDE [Glipizide] 5 mg PO DAILY 10/19/17 Sertraline HCl 25 mg PO DAILY 04/19/22 Gabapentin [Neurontin*] 100 mg PO BID 07/01/21 Amox/Clavulanate [Augmentin 875-125 Tab] 875 mg PO BID #20 tab 02/23/23 Hydrocodone 5/APAP 325 [[place] 5/325] 1 tab PO Q6H PRN #30 tab 02/23/23 predniSONE [Deltasone] 20 mg PO DAILY #5 tab 02/23/23 - Past Medical/Surgical History Diabetic: Yes -: History CVA -: Atrial fibrillation now with pacemaker -: DM -: HTN -: PVD -: GERD -: Moderate pulmonary hypertension -: CHF, diastolic dysfunction -: R. total knee replacement -: kristian. cataract sx -: Right thigh staph inf. -: L. big toe amputated -: Back sx Psychosocial/ Personal History: The patient is . - Family History Mother -: Heart disease Father -: Heart disease Brother -: Heart disease, Hypertension, Diabetes, Cancer - Social History Alcohol use: No CD- Drugs: No Caffeine use: No Review of Systems PER HPI Physical Examination - Physical Exam General: Alert, In no apparent distress, Oriented x3 HEENT: Atraumatic, Normocephalic Neck: Supple, 2+ carotid pulse no bruit Respiratory: Clear to auscultation bilaterally, Normal air movement Cardiovascular: Normal pulses, Regular rate/rhythm Capillary refill: <2 Seconds Gastrointestinal: Normal bowel sounds, Soft and benign Musculoskeletal: No swelling, No contractures Integumentary: Other (Moderate bilateral upper extremity bruising from frequent falls, chronic anticoagulation) Neurological: Normal speech, Cranial nerves 3-12 intact, Other (Generalized weak ness), Abnormal gait - Studies Laboratory Data (last 24 hrs) 09/20/23 09/20/23 09/20/23 15:51 15:51 15:51 WBC 8.00 Hgb 8.0 L Hct 25.2 L Plt Count 194 PT 20.8 H INR 1.89 Sodium 140 Potassium 3.9 BUN 30 H Creatinine 1.89 H Glucose 95 Magnesium 1.8 Total Bilirubin 0.7 AST 11 L ALT < 14 L Alkaline Phosphatase 89 Assessment and Plan - Plan Assessment plan Chronic atrial fibrillation chronic anticoagulation hypertensive disorder Cardiology to consult, telemetry, presents to the emergency room with frequent falls. at bedside is primary historian reports patient has had a recent pacemaker replacement, also has had some hypoglycemia. Is on glipizide, report he has had frequent falls. He has moderate bilateral upper extremity bruising from chronic anticoagulation. He denies hitting his head, he denies pain with range of motion, he denies deformity, no confusion or dizziness. No reported chest pain, shortness of breath, fever. Plan to admit for frequent falls, physical therapy for DME needs, and will consult cardiology to eval pacemaker. 5 BP 158 / 77; Pulse 80; Resp 18; Temp 98.8(O); Pulse Ox 98% on R/A; EKG 66 beats/min. Rhythm is regular, Junctional rhythm with Occasional PVCs. Left axis deviation noted. QT interval is prolonged at 534 msec. No Q waves Acute hypoglycemia EMS states patient had a hypoglycemia of 30, was given oral glucose increased to 117. Hold diabetic medication Acute frequent falls Chronic toe amputation bilat PT to eval DME needs reports he does not wear his shoes when ambulating. The patient reports he he does not wear shoes intentionally because he does not want to. Dementia hyperthyroidism diabetes mellitus Resume appropriate home meds, hold p.o. glipizide Full code DVT Eliquis Diet cardiac Disposition pending hospital course Discharge Plan: Home - Advance Directives Does patient have a Living Will: No Does patient have a Durable POA for Healthcare: No - Code Status/Comfort Care Code Status: Full Code Critical Care: No Time Spent Managing Pts Care (In Minutes): 55
[2023-09-20] MEDS ORDERED: ACETAMINOPHEN 500 MG TAB PO PRN (18:38)
[2023-09-20] MEDS: NA CHLORIDE 0.9% 1,000 ML IV SCH (20:43)
[2023-09-20] MEDS: INSULIN REGULAR (HUMAN) 100 UNIT/ML SQ SCH (20:44)
[2023-09-20 22:10] VITALS: BMI 4022.7
[2023-09-21 04:54] LABS: Absolute Basophils 0.1 K/uL (0-0.5); Absolute Eosinophils 0.3 K/uL (0-0.5); Absolute Lymphocytes (CBC) 1.6 K/uL (0.7-4.9); Absolute Monocytes 1.8 K/uL (0.1-1.3); Absolute Neutrophil 4.1 K/uL (1.8-8.0); Basophils % 0.7 % (0-1.3); Eosinophils % 3.9 % (0-4.4); Hematocrit 23.4 % (39.6-49.0); Hemoglobin 7.6 g/dL (13.6-17.9); MCH 30.1 pg (27.0-35.0); MCHC 32.5 g/dL (32.0-36.0); MCV 92.7 fL (80-100); MPV 7.1 fL (7.6-11.3); Monocytes % 22.9 % (3.3-12.3); Neutrophils % 52.5 % (41.7-73.7); Nucleated Red Blood Cells % 0.1 % (0-0); Platelets 219 thou/uL (152-406); RBC Red Blood Cell Count 2.53 M/uL (4.33-5.43); Red Cell Distribution Width 16.2 % (12.1-15.2)
[2023-09-21 05:17] LABS: Albumin 2.7 g/dL (3.4-5.0); Albumin/Globulin Ratio 0.7 (1.1-1.8); Anion Gap 10.2 mEq/L (5.0-15.0); Bilirubin Total 0.6 mg/dL (0.2-1.0); Globulin 3.7 g/dL (2.3-3.5); Magnesium 1.9 mg/dL (1.6-2.4); Potassium 4.2 mEq/L (3.5-5.1); Protein, Total 6.4 g/dL (6.4-8.2); Troponin High Sensitivity 12.8 pg/mL (<58.9)
[2023-09-21 05:23] LABS: PT Prothrombin Time 18.1 SECONDS (9.4-12.5); Protime INR 1.64
--- NOTE | 2023-09-21 15:46 | P.PN ---
Subjective Date of Service: 09/21/23 Chief Complaint: Multiple falls Patient has no new complaint. He denies any pain. He ambulated in the hallway today with therapy with a rolling walker. Physical Examination - Vital Signs Temperature: 98.4 F Blood Pressure: 110/53 Pulse: 80 Respirations: 20 Pulse Ox (%): 97 - Studies Laboratory Data (last 24 hrs) 09/20/23 09/20/23 09/20/23 15:51 15:51 15:51 WBC 8.00 Hgb 8.0 L Hct 25.2 L Plt Count 194 PT 20.8 H INR 1.89 Sodium 140 Potassium 3.9 BUN 30 H Creatinine 1.89 H Glucose 95 Magnesium 1.8 Total Bilirubin 0.7 AST 11 L ALT < 14 L Alkaline Phosphatase 89 Assessment And Plan - Plan Physical Examination General: Well-built, Not in acute distress. HEENT: PERRLA, EOMI, anicteric sclera. Neck: Supple, no elevated JVD. Lungs: Clear to auscultation bilaterally. No rhonchi, no rales, no crackles. Heart: S1-S2 heard, rapid, no murmur no gallop no rub. Normal capillary refill. Abdomen: Soft, nontender, nondistended, no hepatosplenomegaly. Extremities: Trace bilateral lower extremity edema. No deformity. Neuro: No cranial nerve deficit, no focal motor deficit. Psychiatry: Awake, normal behavior, normal affect. Skin: Ecchymosis-bilateral arm, worse on the right. Assessment and plan Falls Could be related to hypoglycemia. Patient blood pressure appeared to be soft today. Check orthostatic vitals.. Patient ambulated 250 feet with a walker today. Continue PT Fall precautions. Chronic atrial fibrillation Recent pacemaker placement chronic anticoagulation Continue telemetry. Validate, reconcile and continue home medications including Eliquis and amiodarone. Acute hypoglycemia DM type II Likely related to glipizide use Hold glipizide. Continue to monitor fingerstick glucose Hypoglycemia protocol. Chronic anemia Symptomatic anemia Monitor CBC and transfuse as needed for hemoglobin less than 8. DVT prophylaxis: Eliquis Advanced directive: full code
--- NOTE | 2023-09-21 17:01 | P.CNS ---
Date of Consult: 09/21/23 Chief Complaint: Multiple falls History of Present Illness: Patient with PMH of atrial fibrillation s/p PPM with recent battery exchange, has been having problems with balance and weakness , denies syncope, no chest pain, no SOB. Allergies metformin [From Glucophage] Allergy (Verified 06/19/20 11:25) Passed out metoprolol Adverse Reaction (Verified 06/19/20 11:25) Passed out steroids Allergy (Unknown, Uncoded 06/19/20 11:25) Unknown Home medications list reviewed: Yes Home Medications: Amiodarone HCl [Cordarone*] 200 mg PO DAILY 10/19/17 Apixaban [Eliquis *] 2.5 mg PO BID 10/19/17 Spironolactone [Aldactone*] 25 mg PO BID 10/19/17 glipiZIDE [Glipizide] 5 mg PO DAILY 10/19/17 Sertraline HCl 25 mg PO DAILY 05/27/21 Gabapentin [Neurontin*] 100 mg PO BID 07/01/21 Amox/Clavulanate [Augmentin 875-125 Tab] 875 mg PO BID #20 tab 02/23/23 Hydrocodone 5/APAP 325 [[place] 5/325] 1 tab PO Q6H PRN #30 tab 02/23/23 predniSONE [Deltasone] 20 mg PO DAILY #5 tab 02/23/23 - Past Medical/Surgical History Diabetic: Yes -: History CVA -: Atrial fibrillation now with pacemaker -: DM -: HTN -: PVD -: GERD -: Moderate pulmonary hypertension -: CHF, diastolic dysfunction -: R. total knee replacement -: kristian. cataract sx -: Right thigh staph inf. -: L. big toe amputated -: Back sx Psychosocial/ Personal History: The patient is . - Family History Mother Medical History: Heart disease Father Medical History: Heart disease Brother Medical History: Heart disease, Hypertension, Diabetes, Cancer - Social History Smoking Status: Unknown if ever smoked Alcohol use: No CD- Drugs: No Caffeine use: No Review of Systems 10-point ROS is otherwise unremarkable Physical Examination Temp Pulse Resp BP Pulse Ox 98.0 F 72 16 138/65 16 L 09/21/23 16:00 09/21/23 16:00 09/21/23 16:00 09/21/23 16:00 09/21/23 16:00 General: Alert, In no apparent distress HEENT: Atraumatic, PERRLA, Mucous membr. moist/pink, EOMI, Sclerae nonicteric Neck: Supple, 2+ carotid pulse no bruit, No LAD, Without JVD or thyroid abnormality Respiratory: Clear to auscultation bilaterally, Normal air movement Cardiovascular: Regular rate/rhythm, Normal S1 S2 Gastrointestinal: Normal bowel sounds, No tenderness Musculoskeletal: No tenderness Integumentary: No rashes Neurological: Normal gait, Normal speech, Normal tone, Normal affect Lymphatics: No axilla or inguinal lymphadenopathy Laboratory Data (last 24 hrs) 09/20/23 15:51 WBC 8.00 Hgb 8.0 L Hct 25.2 L Plt Count 194 - Problems (1) Weakness Current Visit: Yes Status: Acute Plan: patient fall most likely secondary to deconditioning and low blood glucose. Telemtery shows paced rhythm alternating with atrial fib continue amiodarone and eliquis (2) A-fib Onset Date: 08/28/15 Current Visit: No Status: Chronic Plan: continue amiodaorne and eliquis. Qualifiers: (3) Hypertension Onset Date: 08/28/15 Current Visit: No Status: Chronic Plan: get orthostatic vitals and continue to monitor get repeated echo Qualifiers: Hypertension type: essential hypertension Qualified Code(s): I10 - Essential (primary) hypertension
[2023-09-21] MEDS ORDERED: NA CHLORIDE 0.9% 250 ML IV SCH (18:00)
[2023-09-21] MEDS: APIXABAN 2.5 MG TABLET PO SCH (21:00)
[2023-09-21] MEDS ORDERED: NA CHLORIDE 0.9% 250 ML ONE (22:13)
[2023-09-22 04:12] VITALS: O2SAT 100
[2023-09-22 06:42] LABS: Absolute Basophils 0.1 K/uL (0-0.5); Absolute Eosinophils 0.3 K/uL (0-0.5); Absolute Lymphocytes (CBC) 1.4 K/uL (0.7-4.9); Absolute Monocytes 2.1 K/uL (0.1-1.3); Absolute Neutrophil 4.8 K/uL (1.8-8.0); Basophils % 0.7 % (0-1.3); Eosinophils % 3.3 % (0-4.4); Hematocrit 25.4 % (39.6-49.0); Hemoglobin 8.4 g/dL (13.6-17.9); Lymphocytes % 16.6 % (15.3-44.8); MCH 30.1 pg (27.0-35.0); MCHC 32.9 g/dL (32.0-36.0); MCV 91.4 fL (80-100); MPV 7.3 fL (7.6-11.3); Monocytes % 24.2 % (3.3-12.3); Neutrophils % 55.2 % (41.7-73.7); Nucleated Red Blood Cells % 0.1 % (0-0); Platelets 201 thou/uL (152-406); RBC Red Blood Cell Count 2.78 M/uL (4.33-5.43); Red Cell Distribution Width 16.1 % (12.1-15.2)
[2023-09-22 06:58] LABS: ALT/SGPT < 14 U/L (16-61); AST/SGOT < 10 U/L (15-37); Albumin 2.5 g/dL (3.4-5.0); Albumin/Globulin Ratio 0.7 (1.1-1.8); Alkaline Phosphatase 94 U/L (45-117); Anion Gap 11.1 mEq/L (5.0-15.0); BUN Blood Urea Nitrogen 28 mg/dL (7-18); Bicarbonate 23 mEq/L (21-32); Globulin 3.7 g/dL (2.3-3.5); Glomerular Filtration Rate 47 ml/min (=/>90); Glucose Level 106 mg/dL (74-106); Magnesium 1.9 mg/dL (1.6-2.4); NT PRO-BNP 2788 pg/mL (<450); Potassium 4.1 mEq/L (3.5-5.1); Protein, Total 6.2 g/dL (6.4-8.2); Sodium Level 143 mEq/L (136-145); Troponin High Sensitivity 12.3 pg/mL (<58.9)
[2023-09-22 08:50] VITALS: BP 137/63; TEMP 98.6
--- NOTE | 2023-09-22 09:42 | P.DS ---
Admission Date: 09/20/23 Discharge Date: 09/22/23 Reason for Admission: Multiple falls Consultations: Cardiology - Dr. Lange Brief History of Present Illness: 78yo M, PMH: Atrial fibrillation; chronic anticoagulation hypertensive disorder; hyperthyroidism; diabetes mellitus; toe amputation bilat; dementia Patient presents to the emergency room with frequent falls. at bedside is primary historian reports patient has had a recent pacemaker replacement, also has had some hypoglycemia. Is on glipizide, report he has had frequent falls. He has moderate bilateral upper extremity bruising from chronic anticoagulation. He denies hitting his head, he denies pain with range of motion, he denies deformity, no confusion or dizziness. reports he does not wear his shoes when ambulating. The patient reports he he does not wear shoes intentionally because he does not want to. EMS states patient had a hypoglycemia of 30, was given oral glucose increased to 117. No reported chest pain, shortness of breath, fever. Plan to admit for frequent falls, physical therapy for DME needs, and will consult cardiology to eval pacemaker. 5 BP 158 / 77; Pulse 80; Resp 18; Temp 98.8(O); Pulse Ox 98% on R/A; EKG 66 beats/min. Rhythm is regular, Junctional rhythm with Occasional PVCs. Left axis deviation noted. QT interval is prolonged at 534 msec. No Q waves Hospital Course: Problem List: Frequent falls IDDM2 with severe hypoglycemia acute on chronic anemia; symptomatic Chronic atrial fibrillation on anticoagulation s/p recent pacemaker replacement Physician discharge instructions: Patient presented with generalized weakness, frequent falls (4 in the last week). Patient denied any lightheadedness/dizziness prior to falls and reported more of sliding down from side of bed and chair. [place] to be multifactorial - secondary to deconditioning, anemia, hypoglycemia, and dehydration. He reports decreased appetite and weight loss for several months, but more pronounced decrease in appetite lately. His blood work improved with IV hydration, holding his home glipizide and spironolactone, and his symptoms resolved. Ambulated with physical therapy ~250ft. On EMS arrival patients glucose was noted to be low in 30s and improved to 117 after oral glucose. Hemoglobin 7.6, Creatinine 1.[address] head and chest xray were both negative for any acute findings. Patient was given 1unit of blood transfusion and given IV fluids. No evidence of active bleed. Advised to hold home glipizide for now. Check glucose levels around the same malia e each day. Keep daily log of readings to taking to follow up appointments. Follow up with PCP in ~1 week for further discussion and discuss if/when to restart medications. Patient was feeling better, strength improving, close to his normal baseline and was deemed stable for discharge. Blood pressure was noted to be intermittently low-normal this hospitalization. Advised to hold home spironolactone for now. Check blood pressure at home daily and follow up with PCP. Cardiology was consulted given his recent pacemaker replacement, and recommended continuing amiodarone and eliquis. Medications: stop glipizide for now stop spironolactone for now continue other home medications as previously prescribed Follow up: PCP 3-5 days Please call to schedule / confirm appointments Physical Exam: GEN: Alert, oriented, NAD HEENT: Normal conjunctiva, sclera anicteric, CV: Regular rate and rhythm, no edema Pulm: Nonlabored respirations on room air, clear bilaterally ABD: soft, nontender, nondistended Integumentary: No rashes Neuro: Normal speech, normal affect Vital Signs/Physical Exam: Temp Pulse Resp BP Pulse Ox 98.6 F 64 16 137/63 97 09/22/23 08:00 09/22/23 08:00 09/22/23 08:00 09/22/23 08:00 09/22/23 08:00 Laboratory Data at Discharge: WBC 8.70 thou/uL (4.3-10.9) 09/22/23 06:13 Hgb 8.4 g/dL (13.6-17.9) L D 09/22/23 06:13 Hct 25.4 % (39.6-49.0) L 09/22/23 06:13 Plt Count 201 thou/uL (152-406) 09/22/23 06:13 PT 18.1 SECONDS (9.4-12.5) H 09/21/23 04:37 INR 1.64 09/21/23 04:37 Sodium 143 mEq/L (136-145) 09/22/23 06:13 Potassium 4.1 mEq/L (3.5-5.1) 09/22/23 06:13 BUN 28 mg/dL (7-18) H 09/22/23 06:13 Creatinine 1.49 mg/dL (0.70-1.30) H 09/22/23 06:13 Glucose 106 mg/dL (74-106) 09/22/23 06:13 Magnesium 1.9 mg/dL (1.6-2.4) 09/22/23 06:13 Total Bilirubin 1.0 mg/dL (0.2-1.0) 09/22/23 06:13 AST < 10 U/L (15-37) L 09/22/23 06:13 ALT < 14 U/L (16-61) L 09/22/23 06:13 Alkaline Phosphatase 94 U/L (45-117) 09/22/23 06:13 Home Medications: Amiodarone HCl [Cordarone*] 200 mg PO DAILY 10/19/17 Apixaban [Eliquis *] 2.5 mg PO BID 10/19/17 Sertraline HCl 25 mg PO DAILY 05/27/21 Gabapentin [Neurontin*] 100 mg PO BID 07/01/21 Amox/Clavulanate [Augmentin 875-125 Tab] 875 mg PO BID #20 tab 02/23/23 Hydrocodone 5/APAP 325 [[place] 5/325] 1 tab PO Q6H PRN #30 tab 02/23/23 predniSONE [Deltasone] 20 mg PO DAILY #5 tab 02/23/23 Physician Discharge Instructions: Physician discharge instructions: Patient presented with generalized weakness, frequent falls (4 in the last week). Patient denied any lightheadedness/dizziness prior to falls and reported more of sliding down from side of bed and chair. [place] to be multifactorial - secondary to deconditioning, anemia, hypoglycemia, and dehydration. He reports decreased appetite and weight loss for several months, but more pronounced decrease in appetite lately. His blood work improved with IV hydration, holding his home glipizide and spironolactone, and his symptoms resolved. Ambulated with physical therapy ~250ft. On EMS arrival patients glucose was noted to be low in 30s and improved to 117 after oral glucose. Hemoglobin 7.6, Creatinine 1.[address] head and chest xray were both negative for any acute findings. Patient was given 1unit of blood transfusion and given IV fluids. No evidence of active bleed. Advised to hold home glipizide for now. Check glucose levels around the same time each day. Keep daily log of readings to taking to follow up appointments. Follow up with PCP in ~1 week for further discussion and discuss if/when to restart medications. Patient was feeling better, strength improving, close to his normal baseline and was deemed stable for discharge. Blood pressure was noted to be intermittently low-normal this hospitalization. Advised to hold home spironolactone for now. Check blood pressure at home daily and follow up with PCP. Cardiology was consulted given his recent pacemaker replacement, and recommended continuing amiodarone and eliquis. Medications: stop glipizide for now stop spironolactone for now continue other home medications as previously prescribed Follow up: PCP 3-5 days Please call to schedule / confirm appointments Followup: Jean Carlos Velásquez MD [ACTIVE - CAN ADMIT] - 2-3 Days (Call for appointment) Time spent managing pt's care (in minutes): 45
[2023-09-22] MEDS: AMIODARONE HCL 200 MG TAB PO SCH (09:56)
== END 2023-09-22 11:38 | disposition home or self-care (01) | DRG 638 ==
LOC: ER 14:54 → 2ND 18:37
PROVIDERS: ADMIT Hospitalist; ATTEND Hospitalist
PROC: 30233N1 Transfusion of Nonautologous Red Blood Cells into Peripheral Vein, Percutaneous Approach (ICD-10-PCS; principal; 2023-09-21)
DX: E11.649 Type 2 diabetes mellitus with hypoglycemia without coma (principal); I13.0 Hypertensive heart and chronic kidney disease with heart failure and stage 1 through stage 4 chronic kidney disease, or unspecified chronic kidney disease; I48.20 Chronic atrial fibrillation, unspecified; I50.32 Chronic diastolic (congestive) heart failure; N18.30 Chronic kidney disease, stage 3 unspecified; E11.22 Type 2 diabetes mellitus with diabetic chronic kidney disease; E11.51 Type 2 diabetes mellitus with diabetic peripheral angiopathy without gangrene; D63.1 Anemia in chronic kidney disease; I49.3 Ventricular premature depolarization; E03.9 Hypothyroidism, unspecified; K21.9 Gastro-esophageal reflux disease without esophagitis; F03.90 Unspecified dementia, unspecified severity, without behavioral disturbance, psychotic disturbance, mood disturbance, and anxiety; T38.3X5A Adverse effect of insulin and oral hypoglycemic [antidiabetic] drugs, initial encounter; R29.6 Repeated falls; Z91.81 History of falling; Z79.01 Long term (current) use of anticoagulants; Z79.52 Long term (current) use of systemic steroids; Z79.84 Long term (current) use of oral hypoglycemic drugs; Z86.73 Personal history of transient ischemic attack (TIA), and cerebral infarction without residual deficits; Z79.899 Other long term (current) drug therapy; Z89.422 Acquired absence of other left toe(s); Z89.421 Acquired absence of other right toe(s); Z96.651 Presence of right artificial knee joint
CPT/HCPCS: 36415; 36430; 70450; 71045; 72125; 80048; 80053; 80076; 82947; 83735; 83880; 84484; 85025; 85610; 86850; 86900; 86901; 86920; 93005; 97116; 97161; 97530; 99283; J7030; J7050; P9016

== ENCOUNTER 2023-10-29 23:18 | Inpatient (IN) | payer OTHER ==
[2023-10-30] MEDS ORDERED: NA CHLORIDE 0.9% 1,000 ML ONE (00:37)
[2023-10-30 01:27] LABS: Absolute Basophils 0.1 K/uL (0-0.5); Absolute Eosinophils 0.3 K/uL (0-0.5); Absolute Lymphocytes (CBC) 1.7 K/uL (0.7-4.9); Absolute Monocytes 1.6 K/uL (0.1-1.3); Basophils % 0.9 % (0-1.3); Hematocrit 27.7 % (39.6-49.0); Hemoglobin 9.1 g/dL (13.6-17.9); Lymphocytes % 22.3 % (15.3-44.8); MCH 30.2 pg (27.0-35.0); MCHC 32.8 g/dL (32.0-36.0); MCV 92.3 fL (80-100); MPV 7.5 fL (7.6-11.3); Monocytes % 20.9 % (3.3-12.3); Neutrophils % 51.9 % (41.7-73.7); Platelets 206 thou/uL (152-406); Red Cell Distribution Width 16.2 % (12.1-15.2)
[2023-10-30] MEDS ORDERED: MUPIROCIN 2% OINT 22GM TUBE TOP ONE (01:28)
[2023-10-30 01:31] LABS: PT Prothrombin Time 23.3 SECONDS (9.4-12.5); Protime INR 2.13
[2023-10-30 01:47] LABS: Albumin 2.7 g/dL (3.4-5.0); Albumin/Globulin Ratio 0.7 (1.1-1.8); Alkaline Phosphatase 142 U/L (45-117); Anion Gap 9.7 mEq/L (5.0-15.0); BUN Blood Urea Nitrogen 26 mg/dL (7-18); Bicarbonate 24 mEq/L (21-32); Bilirubin Direct 0.2 mg/dL (0-0.2); Bilirubin Indirect, Calculated 0.3 mg/dL (0.2-0.8); Bilirubin Total 0.5 mg/dL (0.2-1.0); Globulin 4.1 g/dL (2.3-3.5); Glomerular Filtration Rate 58 ml/min (=/>90); Glucose Level 211 mg/dL (74-106); Lipase 10 U/L (13-75); Magnesium 1.8 mg/dL (1.6-2.4); NT PRO-BNP 3910 pg/mL (<450); Potassium 3.7 mEq/L (3.5-5.1); Protein, Total 6.8 g/dL (6.4-8.2); Sodium Level 139 mEq/L (136-145); Troponin High Sensitivity 10.2 pg/mL (<58.9)
[2023-10-30 01:52] LABS: ALT/SGPT < 14 U/L (16-61); AST/SGOT < 10 U/L (15-37)
[2023-10-30 02:02] LABS: Blood Morphology Comment NOT SEEN (NOT SEEN); Platelet Estimate ADEQ; White Blood Cell Scan OK (OK)
--- NOTE | 2023-10-30 02:06 | EDPHYS ---
Physician Documentation [facility] Name: Ely Coley Age: 78 yrs Sex: Male : 1945 Arrival Date: 10/29/2023 Time: 23:18 Bed 5 Private MD: PRACHI Physician Derrick Jansen HPI: 10/29 00:16 This 78 yrs old Male presents to ER via Wheelchair with complaints of kanchan Swelling of Lower Extremity, RT LEG SEEPING. 00:16 The patient presents with decreased range of motion, pain, spasm, swelling. The kanchan complaints affect the right leg and left leg. Context: resulted from an unknown cause, the patient can fully bear weight. Modifying factors: The symptoms are alleviated by elevating leg, the symptoms are aggravated by movement, weight bearing. Associated signs and symptoms: Pertinent positives: calf tenderness, swelling. Treatment prior to arrival includes: no previous treatment. Severity of symptoms: At their worst the symptoms were moderate, in the emergency department the symptoms are unchanged. The patient has not experienced similar symptoms in the past. Historical: - Allergies: 10/28 23:43 Glucophage; jb4 23:43 metformin; jb4 23:43 steroids; jb4 - PMHx: 23:43 Atrial fibrillation; diabetes mellitus; Hypertensive disorder; hyperthyroidism; jb4 - PSHx: 23:43 toe amputation bilat (es); dementia (es); Pacemaker placement and replacement (dementia jb4 ); - Immunization history:: Adult Immunizations up to date. - Infectious Disease History:: Denies. - Social history:: Smoking status: Patient denies any tobacco usage or history of. - Family history:: not pertinent. ROS: 10/29 00:16 Constitutional: Negative for fever, chills, and weight loss, Eyes: Negative for injury, kanchan pain, redness, and discharge, ENT: Negative for injury, pain, and discharge, Neck: Negative for injury, pain, and swelling, Cardiovascular: Negative for chest pain, palpitations, and edema, Respiratory: Negative for shortness of breath, cough, wheezing, and pleuritic chest pain, Abdomen/GI: Negative for abdominal pain, nausea, vomiting, diarrhea, and constipation, Back: Negative for injury and pain, : Negative for injury, bleeding, discharge, and swelling, Skin: Negative for injury, rash, and discoloration, Neuro: Negative for headache, weakness, numbness, tingling, and seizure, Psych: Negative for depression, anxiety, suicide ideation, homicidal ideation, and hallucinations, Allergy/Immunology: Negative for hives, rash, and allergies, Endocrine: Negative for neck swelling, polydipsia, polyuria, polyphagia, and marked weight changes, Hematologic/Lymphatic: Negative for swollen nodes, abnormal bleeding, and unusual bruising, MS/extremity: Positive for swelling, tenderness, of the right leg and left leg, Exam: 00:16 Constitutional: This is a well developed, well nourished patient who is awake, alert, kanchan and in no acute distress. Head/Face: Normocephalic, atraumatic. Eyes: Pupils equal round and reactive to light, extra-ocular motions intact. Lids and lashes normal. Conjunctiva and sclera are non-icteric and not injected. Cornea within normal limits. Periorbital areas with no swelling, redness, or edema. ENT: Nares patent. No nasal discharge, no septal abnormalities noted. Tympanic membranes are normal and external auditory canals are clear. Oropharynx with no redness, swelling, or masses, exudates, or evidence of obstruction, uvula midline. Mucous membranes moist. Neck: Trachea midline, no thyromegaly or masses palpated, and no cervical lymphadenopathy. Supple, full range of motion without nuchal rigidity, or vertebral point tenderness. No Meningismus. Chest/axilla: Normal chest wall appearance and motion. Nontender with no deformity. No lesions are appreciated. Cardiovascular: Regular rate and rhythm with a normal S1 and S2. No gallops, murmurs, or rubs. Normal PMI, no JVD. No pulse deficits. Respiratory: Lungs have equal breath sounds bilaterally, clear to auscultation and percussion. No rales, rhonchi or wheezes noted. No increased work of breathing, no retractions or nasal flaring. Abdomen/GI: Soft, non-tender, with normal bowel sounds. No distension or tympany. No guarding or rebound. No evidence of tenderness throughout. Back: No spinal tenderness. No costovertebral tenderness. Full range of motion. Male : Normal genitalia with no discharge or lesions. Skin: Warm, dry with normal turgor. Normal color with no rashes, no lesions, and no evidence of cellulitis. Neuro: Awake and alert, GCS 15, oriented to person, place, time, and situation. Cranial nerves II-XII grossly intact. Motor strength 5/5 in all extremities. Sensory grossly intact. Cerebellar exam normal. Normal gait. Psych: Awake, alert, with orientation to person, place and time. Behavior, mood, and affect are within normal limits. 00:16 Musculoskeletal/extremity: ROM: intact in all extremities, full active range of motion, full passive range of motion, Circulation is intact in all extremities. Sensation intact. Compartment Syndrome exam of affected extremity: is normal. Weight bearing: able to fully bear weight, without difficulty, DVT Exam: negative Homans' sign noted on exam, no appreciated bluish discoloration, no erythema, pain, swelling, tenderness, increased warmth, that is mild, of the right leg and left leg, 01:17 ECG was reviewed by the Attending Physician. [facility] [place] Vital Signs: 10/28 23:58 BP 157 / 66; Pulse 95; Resp 16; Temp 97.9; Pulse Ox 98% ; Weight 96.16 kg (R); Height 6 jb4 ft. 0 in. ; 10/29 01:00 BP 154 / 68; Pulse 59; Resp 18; Pulse Ox 98% ; br2 01:18 BP 154 / 68; Pulse 64; Resp 17 S; Pulse Ox 100% on R/A; lg3 02:00 BP 158 / 68; Pulse 63; Resp 18; Pulse Ox 99% ; br2 03:00 BP 138 / 64; Pulse 63; Resp 18; Pulse Ox 100% ; br2 10/28 23:58 Body Mass Index 28.75 (96.16 kg, 182.88 cm) jb4 [place] Score: 01:17 Eye Response: spontaneous(4). Motor Response: obeys commands(6). Verbal Response: kanchan oriented(5). Total: 15. MDM: 10/28 23:53 Patient medically screened. [facility] [place] 10/29 00:30 Differential diagnosis: contusion, abrasion, tendonitis. Data reviewed: vital signs, [facility] [place] nurses notes, lab test result(s), EKG, radiologic studies, doppler, plain films. Consideration of Admission/Observation Patient was admitted/placed on observation. Escalation of care including admission/observation considered. I considered the following discharge prescriptions or medication management in the emergency department Medications were administered in the Emergency Department. See MAR. Independent interpretation of the following test(s) in the Emergency Department EKG: See my EKG interpretation above. Test considered but Not performed: Ultrasound NO ABD USG. Historians other than the Patient: Spouse/Significant Other: WELL INFORMED. Care significantly affected by the following chronic conditions: Diabetes, Hypertension, Chronic Obstructive Pulmonary Disease, Chronic Kidney Disease, Liver Disease. Counseling: I had a detailed discussion with the patient and/or guardian regarding the historical points, exam findings, and any diagnostic results supporting the discharge/admit diagnosis, lab results, radiology results, the need for further work-up and treatment in the hospital. 10/29 00:08 Order name: Basic Metabolic Panel; Complete Time: 02:02 [facility] [place] 10/29 00:08 Order name: CBC with Diff; Complete Time: 02:02 [facility] [place] 10/29 00:08 Order name: LFT's; Complete Time: 02:02 [facility] [place] 10/29 00:08 Order name: Magnesium; Complete Time: 02:02 [facility] [place] 10/29 00:08 Order name: NT PRO-BNP; Complete Time: 02:02 [facility] [place] 10/29 00:08 Order name: PT-INR; Complete Time: 01:50 [facility] [place] 10/29 00:08 Order name: Troponin HS; Complete Time: 02:02 [facility] [place] 10/29 00:08 Order name: Blood Culture Adult (2) [facility] [place] 10/29 00:08 Order name: Lactate w/ 2H reflex if indic.; Complete Time: 01:50 [facility] [place] 10/29 00:08 Order name: Lipase; Complete Time: 02:02 [facility] [place] 10/29 00:09 Order name: Urinalysis w/ reflexes [facility] [place] 10/29 02:02 Order name: CBC Smear Scan; Complete Time: 02:02 [facility] 10/29 03:03 Order name: Urinalysis w/ reflexes [facility] 10/29 03:03 Order name: CBC with Automated Diff [facility] 10/29 03:03 Order name: CBC with Automated Diff [facility] 10/29 03:03 Order name: Comprehensive Metabolic Panel [facility] 10/29 03:03 Order name: Comprehensive Metabolic Panel [facility] 10/29 03:03 Order name: Troponin High Sensitivity EDFL 10/29 03:03 Order name: Troponin High Sensitivity EDMS 10/29 03:03 Order name: Troponin High Sensitivity EDMS 10/29 03:03 Order name: Troponin High Sensitivity EDFL 10/29 00:08 Order name: XRAY Chest (1 view) [facility] [place] 10/29 00:08 Order name: CT Chest Abdomen Pelvis W/O Contrast [facility] [place] 10/29 00:08 Order name: US Extremity Venous W Compression Kennedy [facility] 10/29 00:08 Order name: Cardiac monitoring; Complete Time: : [facility] [place] 10/29 00:08 Order name: EKG - Nurse/Tech; Complete Time: : [facility] [place] 10/29 00:08 Order name: IV Saline Lock; Complete Time: [facility] [place] 10/29 00:08 Order name: Labs collected and sent; Complete Time: [facility] [place] 10/29 00:08 Order name: O2 Per Protocol; Complete Time: : [facility] [place] 10/29 00:08 Order name: O2 Sat Monitoring; Complete Time: [facility] [place] 10/29 00:08 Order name: Wound Care; Complete Time: 01:33 [facility] [place] EC: Rate is 64 beats/min. Rhythm is regular. QRS Noti is Normal. WV interval is normal. QRS kanchan interval is normal. QT interval is normal. No Q waves. T waves are Normal. No ST changes noted. Clinical impression: Abnormal EKG without significant change and No evidence of ischemia. Administered Medications: 01:23 Drug: NS 0.9% IV 1000 ml IV at 75 ml/hr continuous Route: IV; Rate: 75 ml/hr; Site: br2 right forearm; 03:38 Follow up: IV Status: Infusion continued upon admission lg3 01:32 Drug: Mupirocin Topical Ointment 2 % 1 application Topical once Route: Topical; Site: br2 affected area; 03:56 Follow up: Response: No adverse reaction lg3 03:36 Drug: Ampicillin-Sulbactam Sodium IVPB 3 grams IVPB once over 30 mins; (mix in 100 mL cp4 NS) Route: IVPB; Infused Over: 30 mins; Site: right forearm; 04:15 Follow up: Response: No adverse reaction; IV Status: Completed infusion; IV Intake: cp4 100ml Disposition Summary: 10/30/23 02:05 Hospitalization Ordered Notes: Hospitalization Status: Inpatient Admission kanchan Provider: Shawn Melissa cha Location: Telemetry/MedSurg (Inpatient) kanchan Condition: Fair kanchan Problem: new kanchan Symptoms: have improved kanchan Bed/Room Type: Standard kanchan Room Assignment: 230(10/30/23 03:10) kl Diagnosis - Lymphedema, not elsewhere classified kanchan - Cellulitis of left lower limb kanchan - Cellulitis of right lower limb kanchan - Anemia, unspecified kanchan - Chronic atrial fibrillation 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 EDMS EDMS 00:09 00:09 CBC+H.LAB.BRZ ordered. EDMS EDMS 00:09 00:09 HEPATIC FUNCTION+C.LAB.BRZ ordered. EDMS EDMS 00:09 00:09 MAGNESIUM+C.LAB.BRZ ordered. EDMS EDMS 00:09 00:09 PROBNP+C.LAB.BRZ ordered. EDMS EDMS 00:09 00:09 PROTIME (+INR)+COAG.LAB.BRZ ordered. EDMS EDMS 00:09 00:09 Troponin High Sensitivity+C.LAB.BRZ ordered. EDMS EDMS 00:09 00:09 BLOOD CULTURE*+BA.LAB.BRZ ordered. EDMS EDMS 00:09 00:09 LACTATE+C.LAB.BRZ ordered. EDMS EDMS 00:09 00:09 LIPASE+C.LAB.BRZ ordered. EDMS EDMS 00:09 00:09 Chest Single View+RAD.RAD.BRZ ordered. EDMS EDMS 00:09 00:09 Chest Abdomen Pelvis Wo Con+CT.RAD.BRZ ordered. EDMS EDMS 00:09 00:09 Extrem Venous W Compression Kennedy+US.RAD.BRZ ordered. EDMS EDMS 03:10 02:05 kanchan morin
--- NOTE | 2023-10-30 02:06 | ER ---
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 Coronavirus screen: At this time, the client does not indicate any symptoms associated with coronavirus-19. Ebola Screen: No symptoms or risks identified at this time. Risk Assessment: Do you want to hurt yourself or someone else? Patient reports no desire to harm self or others. Onset of symptoms was October 29, 2023. Transition of care: patient was not received from another setting of care. 23:42 Method Of Arrival: Wheelchair jb4 23:42 Acuity: MITCH 3 jb4 10/29 03:38 Initial Sepsis Screen: Does the patient meet any 2 criteria? No. Patient's initial lg3 sepsis screen is negative. Does the patient have a suspected source of infection? No. Patient's initial sepsis screen is negative. Historical: - Allergies: 10/28 23:43 Glucophage; jb4 23:43 metformin; jb4 23:43 steroids; jb4 - PMHx: 23:43 Atrial fibrillation; diabetes mellitus; Hypertensive disorder; hyperthyroidism; jb4 - PSHx: 23:43 toe amputation bilat (es); dementia (es); Pacemaker placement and replacement (dementia jb4 ); - Immunization history:: Adult Immunizations up to date. - Infectious Disease History:: Denies. - Social history:: Smoking status: Patient denies any tobacco usage or history of. - Family history:: not pertinent. Screenin:[address] [facility] ED Fall Risk Assessment (Adult) History of falling in the last 3 months, lg3 including since admission No falls in past 3 months (0 pts) Confusion or Disorientation No (0 pts) Intoxicated or Sedated No (0 pts) Impaired Gait No (0 pts) Mobility Assist Device Used Yes (1 pt) Altered Elimination No (0 pt) Score/Fall Risk Level 0 - 2 = Low Risk Oriented to surroundings, Maintained a safe environment, Educated pt \T\ family on fall prevention, incl call for assistance when getting out of bed, Assessed \T\ reinforced patient's understanding of fall precautions, Provided non-skid footwear. Abuse screen: Denies threats or abuse. Denies injuries from another. Nutritional screening: No deficits noted. Tuberculosis screening: No symptoms or risk factors identified. Assessment: 23:50 General: Appears in no apparent distress. comfortable, Behavior is calm, cooperative. lg3 Pain: Complains of pain in left leg and right leg Pain does not radiate. Pain currently is 4 out of 10 on a pain scale. Quality of pain is described as heavy, pressure. Neuro: No deficits noted. Boswell Agitation-Sedation Scale (RASS): 0 - Alert and Calm Level of Consciousness is awake, alert, obeys commands, Oriented to person, place, time, situation. Cardiovascular: No deficits noted. Denies chest pain, palpitations, shortness of breath, Capillary refill < 3 seconds Clubbing of nail beds is absent JVD is absent Patient's skin is warm and dry. Respiratory: No deficits noted. Airway is patent Respiratory effort is even, unlabored, Respiratory pattern is regular, symmetrical. GI: No deficits noted. No signs and/or symptoms were reported involving the gastrointestinal system. Abdomen is round non-distended. : No deficits noted. No signs and/or symptoms were reported regarding the genitourinary system. EENT: No deficits noted. No signs and/or symptoms were reported regarding the EENT system. Derm: Skin is intact, is healthy with good turgor, Skin is dry, Skin is normal, Skin temperature is warm Wound noted left first toe swelling to RLE with +1 edema noted. Pt reports weeping. no weeping noted at this time. Musculoskeletal: No deficits noted. No signs and/or symptoms reported regarding the musculoskeletal system. Amputation of right first toe, left first toe. Circulation, motion, and sensation intact. Range of motion: intact in all extremities. 10/29 03:37 Reassessment: Patient appears in no apparent distress at this time. No changes from lg3 previously documented assessment. Patient and/or family updated on plan of care and expected duration. Pain level reassessed. Patient is alert, oriented x 3, equal unlabored respirations, skin warm/dry/pink. Patient states feeling better. Vital Signs: 10/28 23:58 BP 157 / 66; Pulse 95; Resp 16; Temp 97.9; Pulse Ox 98% ; Weight 96.16 kg (R); Height 6 jb4 ft. 0 in. ; 10/29 01:00 BP 154 / 68; Pulse 59; Resp 18; Pulse Ox 98% ; br2 01:18 BP 154 / 68; Pulse 64; Resp 17 S; Pulse Ox 100% on R/A; lg3 02:00 BP 158 / 68; Pulse 63; Resp 18; Pulse Ox 99% ; br2 03:00 BP 138 / 64; Pulse 63; Resp 18; Pulse Ox 100% ; br2 10/28 23:58 Body Mass Index 28.75 (96.16 kg, 182.88 cm) jb4 [place] Coma Score: 01:17 Eye Response: spontaneous(4). Motor Response: obeys commands(6). Verbal Response: kanchan oriented(5). Total: 15. ED Course: 10/28 23:21 Patient arrived in ED. jj6 23:43 Triage completed. jb4 23:43 Arm band placed on right wrist. jb4 23:50 Patient has correct armband on for positive identification. Placed in gown. Bed in low lg3 position. Call light in reach. Side rails up X 1. Client placed on continuous cardiac and pulse oximetry monitoring. NIBP monitoring applied. groundwater monitoring technician on. Door closed. Noise minimized. Warm blanket given. Pillow given. Family accompanied patient. 23:50 Inserted saline lock: 20 gauge in right forearm, using aseptic technique. Blood lg3 collected. Patient maintains SpO2 saturation greater than 95% on room air. Wound care: to decubitus located on left first toe was cleaned with soap and water, dressed with Neosporin, 4X4s, Patient tolerated well. 23:53 Derrick Jansen MD is Attending Physician. [facility] 10/29 00:45 CT Chest Abdomen Pelvis W/O Contrast In Process Unspecified. EDMS 00:54 XRAY Chest (1 view) In Process Unspecified. EDMS 01:17 Lipase Sent. lg3 01:17 Lactate w/ 2H reflex if indic. Sent. lg3 01:17 Blood Culture Adult (2) Sent. lg3 01:18 Basic Metabolic Panel Sent. lg3 01:18 CBC with Diff Sent. lg3 01:18 LFT's Sent. lg3 01:18 Magnesium Sent. lg3 01:18 NT PRO-BNP Sent. lg3 01:18 PT-INR Sent. lg3 01:18 Troponin HS Sent. lg3 01:18 EKG done, by ED staff, reviewed by Derrick Jansen MD. lg3 01:23 Blood Culture Adult (2) Sent. br2 01:23 Lactate w/ 2H reflex if indic. Sent. br2 01:24 Basic Metabolic Panel Sent. br2 01:24 CBC with Diff Sent. br2 01:24 LFT's Sent. br2 01:24 Magnesium Sent. br2 01:24 NT PRO-BNP Sent. br2 01:24 PT-INR Sent. br2 01:24 Troponin HS Sent. br2 02:04 Shawn Melissa MD is Hospitalizing Provider. kanchan 02:29 US Extremity Venous W Compression Kennedy In Process Unspecified. EDMS 03:27 Estephania Loyd, RN is Primary Nurse. lg3 03:37 No provider procedures requiring assistance completed. Patient admitted, IV remains in lg3 place. 04:51 Provided Education on: admission. cp4 Administered Medications: 01:23 Drug: NS 0.9% IV 1000 ml IV at 75 ml/hr continuous Route: IV; Rate: 75 ml/hr; Site: br2 right forearm; 03:38 Follow up: IV Status: Infusion continued upon admission lg3 01:32 Drug: Mupirocin Topical Ointment 2 % 1 application Topical once Route: Topical; Site: br2 affected area; 03:56 Follow up: Response: No adverse reaction lg3 03:36 Drug: Ampicillin-Sulbactam Sodium IVPB 3 grams IVPB once over 30 mins; (mix in 100 mL cp4 NS) Route: IVPB; Infused Over: 30 mins; Site: right forearm; 04:15 Follow up: Response: No adverse reaction; IV Status: Completed infusion; IV Intake: cp4 100ml Medication: 10/28 23:50 VIS not applicable for this client. lg3 Intake: 10/29 04:15 IV: 100ml; Total: 100ml. cp4 Outcome: 02:05 Decision to Hospitalize by Provider. kanchan 04:50 Admitted to Med/surg accompanied by tech, via stretcher, with chart, cp4 04:50 Condition: stable 04:50 Instructed on the need for admit, 04:51 Patient left the ED. cp4 Signatures: Dispatcher [employer] EDIN Derrick Jansen MD MD cha Bryson, James, RN RN jb4 Estephania Loyd RN RN lg3 Madelyn Porter Christina cp4 Lyla Gomez, RN RN br2
[2023-10-30] MEDS ORDERED: ACETAMINOPHEN 325 MG TABLET PO PRN (02:57)
[2023-10-30] MEDS ORDERED: ONDANSETRON 4 MG/2 ML VIAL IV PRN (02:57)
--- NOTE | 2023-10-30 02:57 | P.HP ---
Certification for Inpatient Patient admitted to: Inpatient With expected LOS: >2 Midnights Practitioner: I am a practitioner with admitting privileges, knowledge of patient current condition, hospital course, and medical plan of care. Services: Services provided to patient in accordance with Admission requirements found in Title 42 Section 412.3 of the Code of Federal Regulations Patient History Date of Service: 10/30/23 Reason for admission: Pain and swelling lower extremities History of Present Illness: 78 yrs old Male with past medical history of diabetes, hypertension, hypothyroidism, atrial fibrillation, dementia, pacemaker placement, lymphedema: Brought to ER with Swelling of Lower Extremity, with seeping from right leg. He also has decreased range of motion, pain, spasm, swelling of both lower extremities. Patient states that pain and swelling has been progressively getting worse and was brought to ER. Patient was assessed in the ER and was admitted for further management of bilateral lower extremity cellulitis Allergies metformin [From Glucophage] Allergy (Verified 10/30/23 05:21) Shortness of breath metoprolol Adverse Reaction (Verified 10/30/23 05:21) Shortness of breath steroids Allergy (Unknown, Uncoded 06/19/20 11:25) Unknown Home medications list reviewed: Yes Home Medications: Amiodarone HCl [Cordarone*] 200 mg PO DAILY 10/19/17 Apixaban [Eliquis *] 2.5 mg PO BID 10/19/17 Sertraline HCl 25 mg PO DAILY 05/27/21 Gabapentin [Neurontin*] 100 mg PO BID 07/01/21 Amox/Clavulanate [Augmentin 875-125 Tab] 875 mg PO BID #20 tab 02/23/23 Hydrocodone 5/APAP 325 [[place] 5/325] 1 tab PO Q6H PRN #30 tab 02/23/23 predniSONE [Deltasone] 20 mg PO DAILY #5 tab 02/23/23 - Past Medical/Surgical History Diabetic: Yes Past Medical History: Reviewed- Non-Contributory -: History CVA -: Atrial fibrillation now with pacemaker -: DM -: HTN -: PVD -: GERD -: Moderate pulmonary hypertension -: CHF, diastolic dysfunction Past Surgical History: Reviewed- Non-Contributory -: R. total knee replacement -: kristian. cataract sx -: Right thigh staph inf. -: L. big toe amputated -: Back sx Psychosocial/ Personal History: The patient is . - Family History Mother -: Heart disease Father -: Heart disease Brother -: Heart disease, Hypertension, Diabetes, Cancer - Social History Smoking Status: Never smoker Alcohol use: No CD- Drugs: No Caffeine use: No Review of Systems 10-point ROS is otherwise unremarkable Physical Examination - Vital Signs Temperature: 97.9 F Blood Pressure: 156/66 Pulse: 92 Respirations: 18 Pulse Ox (%): 94 - Physical Exam General: Alert, In no apparent distress, Oriented x3 HEENT: Atraumatic, Normocephalic Neck: Supple Respiratory: Clear to auscultation bilaterally, Normal air movement Cardiovascular: Regular rate/rhythm, Normal S1 S2 Capillary refill: <2 Seconds Gastrointestinal: Soft and benign, W/out hepatosplenomegaly Musculoskeletal: No clubbing, Swelling, Erythema, Tenderness Integumentary: No rashes, Tenderness/swelling, Erythema Neurological: Normal speech, Normal strength at 5/5 x4 extr, Cranial nerves 3-12 intact, Normal reflexes 2+ Lymphatics: No axilla or inguinal lymphadenopathy - Studies Laboratory Data (last 24 hrs) 10/30/23 10/30/23 10/30/23 01:03 01:03 01:03 WBC 7.60 Hgb 9.1 L Hct 27.7 L Plt Count 206 PT 23.3 H INR 2.13 Sodium 139 Potassium 3.7 BUN 26 H Creatinine 1.26 Glucose 211 H Magnesium 1.8 Total Bilirubin 0.5 AST < 10 L ALT < 14 L Alkaline Phosphatase 142 H Lipase 10 L Assessment and Plan - Plan Bilateral lower extremity cellulitis Monitor closely on telemetry Started on IV antibiotic Will obtain cultures Change antibiotic as per sensitivity Bilateral lower extremity swelling Patient has 2+ edema bilaterally right worse than left Started on Lasix Monitor closely ins and out CHF with mild exacerbation possibly combined systolic/diastolic Atrial fibrillation, Status post pacemaker placement Aggressive diuresis Monitor closely Will get an echocardiogram Hypertension Antihypertensives titrated Continue home medications and titrate as needed Hyperlipidemia Continue statin Diabetes Insulin sliding scale Accu-Chek before every meal and at bedtime Anemia of chronic disease Monitor H&H closely No overt bleeding at this time GI/DVT prophylaxis Advanced directive full code Discharge Plan: Home Plan to discharge in: 48 Hours - Advance Directives Does patient have a Living Will: No Does patient have a Durable POA for Healthcare: No - Code Status/Comfort Care Code Status: Full Code Time Spent Managing Pts Care (In Minutes): 48
--- NOTE | 2023-10-30 03:00 | RAD REPORT ---
EXAM: CT Chest, Abdomen and Pelvis Without Intravenous Contrast CLINICAL HISTORY: Cough, abdominal distention. TECHNIQUE: Axial computed tomography images of the chest, abdomen and pelvis without intravenous contrast. Sagit vernell and coronal reformatted images were created and reviewed. This CT exam was performed using one or more of the following dose reduction techniques: automated exposure control, adjustment of the mA and/or kV according to patient size, and/or use of i terative reconstruction technique. COMPARISON: XR Chest 10/30/2023 12:49 AM. FINDINGS: CHEST: Lungs: Patchy dependent groundglass opacities within the left upper and left greater than right lower lobes. Moderate left and mild right basilar consolidation. Pleural space: Moderate bilateral pleural effusions. No pneumothorax. Heart: The heart is mildly enlarged. Coronary artery calcification. No significant pericardial effusi on. ABDOMEN: Liver: Unremarkable. Gallbladder and bile ducts: There has been a cholecystectomy. No ductal dilation. Pancreas: Moderate to severe pancreatic parenchymal atrophy/fatty replacement. No ductal dilation. Spleen: Unremarkable. No splenomegaly. Adrenals: Unremarkable. No mass. Kidneys and ureters: No renal calculi. No hydronephrosis. There are a couple small left renal cysts. No follow-up imaging is recommended. JACR 2018 Feb; 264-273, Management of the Incidental Renal Mass on CT, [employer] 202 1; [phone], Bosniak Classification of Cystic Renal Masses, Version 2019. Stomach and bowel: Moderate stool. No bowel obstruction. No appreciable mucosal thickening. PELVIS: Appendix: Normal caliber appendix. No findings to suggest acute appendicitis. Bladder: The urinary bladder is distended. No stones. Reproductive: Unremarkable as visualized. CHEST, ABDOMEN and PELVIS: Intraperitoneal space: Small volume ascites. No free air. Bones/joints: Multilevel spondylosis. Generalized loss of thoracic vertebral body height. Contiguous flowing ossification involving multiple consecutive thoracic vertebra which can be seen in the setting of DISH. No acute fracture. N o dislocation. Soft tissues: Generalized body wall edema. Vasculature: Moderate to severe atherosclerotic disease. No thoracic or abdominal aortic aneurysm. Lymph nodes: Unremarkable. No enlarged lymph nodes. Tubes, lines and devices: Left chest wall dual-lead pacer. IMPRESSION: 1. Moderate bilateral pleural effusions. Adjacent bibasilar consolidation (atelectasis and/or infiltr ate). Patchy dependent groundglass opacities within the left upper and left greater than right lower lobes (atelectasis and/or infiltrat e). 2. Small volume ascites. 3. Moderate stool. No bowel obstruction. 4. Other findings as above. Electronically signed by: Vannessa Yu MD 10/30/2023 02:13 AM CDT Due to temporary technical issues with the PACS/[employer] reporting system, reports are being omar d by the in-house radiologist without review as a courtesy to ensure prompt reporting the interpreting radiologist is fully responsible for the content of the report. Transcribed Date/Time: 10/30/2023 3:00 AM
[2023-10-30] MEDS ORDERED: MORPHINE 2 MG/ML SYR IV PRN (03:02)
[2023-10-30] MEDS ORDERED: HYDROCODONE/APAP 5/325 MG TAB PO PRN (03:02)
[2023-10-30] MEDS ORDERED: AMPICILLIN/SULBACTAM 3GM/VIAL ONE (03:26)
[2023-10-30] MEDS ORDERED: NA CHLORIDE 0.9% 100 ML ONE (03:27)
[2023-10-30] MEDS ORDERED: VANCOMYCIN 1 GM in NA CHLORIDE 0.9% 250 ML IVPB SCH (04:00)
[2023-10-30] MEDS ORDERED: VANCOMYCIN 1.5 GM in NA CHLORIDE 0.9% 500 ML IVPB ONE (04:00)
--- NOTE | 2023-10-30 05:07 | RAD REPORT ---
EXAM: XR Chest, 1 View CLINICAL HISTORY: Cough. TECHNIQUE: Frontal view of the chest. COMPARISON: CT Chest abdomen pelvis 10/30/2023. FINDINGS: Lungs: Patchy bibasilar opacities. Pleural space: Small bilateral pleural effusions. No pneumothorax. Heart: The cardiac silhouette is mildly to moderately enlarged, in part accentuated by portable elsa hnique. Mediastinum: Unremarkable. Normal mediastinal contour. Bones/joints: Unremarkable. No acute fracture. Vasculature: Thoracic aortic atherosclerosis. Tubes, lines and devices: Left chest wall dual-lead pacer. IMPRESSION: 1. Small bilateral pleural effusions. 2. Patchy bibasilar opacities (atelectasis and/or infiltrate). Electronically signed by: Vannessa Yu MD 10/30/2023 02:14 AM T Due to temporary technical issues with the PACS/[employer] reporting system, reports are being omar d by the in-house radiologist without review as a courtesy to ensure prompt reporting the interpreting radiologist is fully responsible for the content of the report. Transcribed Date/Time: 10/30/2023 5:07 AM
[2023-10-30] MEDS: VANCOMYCIN 500 MG/VIAL ONE ×2 (05:40→05:54)
[2023-10-30] MEDS: NA CHLORIDE 0.9% 500 ML ONE (05:41)
[2023-10-30] MEDS: VANCOMYCIN 1.75 GM in NA CHLORIDE 0.9% 500 ML IVPB SCH ×2 (06:00→08:00)
--- NOTE | 2023-10-30 07:12 | P.PN ---
Date of Service: 10/30/23 subjective Admitted with bilateral lower extremity cellulitis, lower extremity edema, no reported fever, Review of Systems 10-point ROS is otherwise unremarkable Physical Examination - Vital Signs reviewed - Physical Exam General: Alert, In no apparent distress, Oriented x3 HEENT: Atraumatic, Normocephalic Neck: Supple Respiratory: Clear to auscultation bilaterally, Normal air movement Cardiovascular: Regular rate/rhythm, Normal S1 S2 bilateral lower extremity edema Capillary refill: <2 Seconds Gastrointestinal: Soft and benign, W/out hepatosplenomegaly Musculoskeletal: No clubbing, Swelling, Erythema, Tenderness Integumentary: No rashes, Tenderness/swelling, Erythema Neurological: Normal speech, Normal strength at 5/5 x4 extr, Lymphatics: No axilla or inguinal lymphadenopathy Assessment and Plan - Plan Bilateral lower extremity cellulitis Monitor closely on telemetry Started on IV antibiotic cultures pending Change antibiotic as per sensitivity Bilateral lower extremity swelling Patient has 2+ edema bilaterally right worse than left Started on Lasix Monitor closely ins and out CHF with mild exacerbation possibly combined systolic/diastolic Atrial fibrillation, Status post pacemaker placement Aggressive diuresis Monitor closely Will get an echocardiogram Hypertension Antihypertensives titrated Continue home medications and titrate as needed Hyperlipidemia Continue statin Diabetes Insulin sliding scale Accu-Chek before every meal and at bedtime Anemia of chronic disease Monitor H&H closely No overt bleeding at this time GI/DVT prophylaxis Advanced directive full code Discharge Plan: Home Plan to discharge in: 48 Hours - Advance Directives Does patient have a Living Will: No Does patient have a Durable POA for Healthcare: No - Code Status/Comfort Care Code Status: Full Code Time Spent Managing Pts Care (In Minutes): 30
[2023-10-30] MEDS: POTASSIUM CL SA 10 MEQ TAB PO ONE (08:23)
[2023-10-30] MEDS: MAGNESIUM SULFATE 1 gm IVPB 1 GM/100 ML BAG IV ONE (08:24)
[2023-10-30] MEDS: FUROSEMIDE 40 MG/4 ML VIAL IV SCH (08:24)
[2023-10-30] MEDS: CEFTRIAXONE 1,000 MG in NA CHLORIDE 0.9% 50 ML IVPB SCH (08:24)
[2023-10-30] MEDS: ENOXAPARIN 40 MG/0.4 ML SQ SCH (08:24)
--- NOTE | 2023-10-30 16:12 | RAD REPORT ---
EXAM DESCRIPTION: Extrem Venous W Compress Kennedy CLINICAL HISTORY: PAIN COMPARISON: None. TECHNIQUE: Grayscale, color Doppler, and spectral Doppler imaging of the bilateral lower extremity ve nous system. FINDINGS: Normal compressibility and flow identified in the bilateral common femoral, superficial fem oral, popliteal, and visualized calf veins. No echogenic thrombus identified. Subcutaneous edema. Respiratory phasicity in the common femoral veins. IMPRESSION: No evidence of lower extremity DVT. Electronically signed by: Vlad Alexander DO 10/30/2023 03:21 AM CDT [id number] Due to temporary technical issues with the PACS/[employer] reporting system, reports are being omar d by the in-house radiologist without review as a courtesy to ensure prompt reporting the interpreting radiologist is fully responsible for the content of the report. Transcribed Date/Time: 10/30/2023 4:12 PM
[2023-10-30 20:52] LABS: Specific Gravity 1.007 (1.005-1.030); Urine Bilirubin NEGATIVE (Negative); Urine Blood Negative (Negative); Urine Clarity Clear (Clear); Urine Color Colorless (Yellow); Urine Glucose NEGATIVE (Negative); Urine Ketones NEGATIVE (Negative); Urine Microscopic Reflex YN NO UMIC; Urine Nitrite NEGATIVE (Negative); Urine Protein NEGATIVE (Negative); Urine Urobilinogen Normal (Normal)
[2023-10-31] MEDS ORDERED: VANCOMYCIN 1.5 GM in NA CHLORIDE 0.9% 500 ML IVPB SCH (04:00)
--- NOTE | 2023-10-31 07:38 | P.PN ---
Date of Service: 10/31/23 subjective Admitted with bilateral lower extremity cellulitis, lower extremity edema, Albumin added to help decrease swelling, Lasix 40 twice daily IV Out of bed to chair today Review of Systems 10-point ROS is otherwise unremarkable Physical Examination - Vital Signs reviewed - Physical Exam General: Alert, In no apparent distress, Oriented x3 HEENT: Atraumatic, Normocephalic Neck: Supple Respiratory: Clear to auscultation bilaterally, Normal air movement Cardiovascular: irregular rate/rhythm, Normal S1 S2, moderate bilateral lower extremity edema Capillary refill: <2 Seconds Gastrointestinal: Soft and benign, W/out hepatosplenomegaly Musculoskeletal: No clubbing, Swelling, Erythema, Tenderness Integumentary: No rashes, Tenderness/swelling, Erythema Neurological: Normal speech, Normal strength at 5/5 x4 extr, Lymphatics: No axilla or inguinal lymphadenopathy Assessment and Plan - Plan Acute bilateral lower extremity cellulitis Monitor closely on telemetry Started on IV antibiotic cultures pending Change antibiotic as per sensitivity Acute bilateral lower extremity swelling Patient has 2+ edema bilaterally right worse than left Started on Lasix, IV albumin Monitor closely ins and out CHF with mild exacerbation possibly combined systolic/diastolic Atrial fibrillation, Status post pacemaker placement Aggressive diuresis Monitor closely Will get an echocardiogram Hypertension Antihypertensives titrated Continue home medications and titrate as needed Hyperlipidemia Continue statin Diabetes Insulin sliding scale Accu-Chek before every meal and at bedtime Anemia of chronic disease Monitor H&H closely No overt bleeding at this time GI/DVT prophylaxis Advanced directive full code Discharge Plan: Home Plan to discharge in: 48 Hours - Advance Directives Does patient have a Living Will: No Does patient have a Durable POA for Healthcare: No - Code Status/Comfort Care Code Status: Full Code Time Spent Managing Pts Care (In Minutes): 30
[2023-10-31 07:51] LABS: Absolute Eosinophils 0.3 K/uL (0-0.5); Absolute Lymphocytes (CBC) 1.2 K/uL (0.7-4.9); Absolute Monocytes 1.3 K/uL (0.1-1.3); Absolute Neutrophil 3.8 K/uL (1.8-8.0); Basophils % 0.6 % (0-1.3); Eosinophils % 4.2 % (0-4.4); Hematocrit 24.8 % (39.6-49.0); Hemoglobin 8.2 g/dL (13.6-17.9); Lymphocytes % 18.4 % (15.3-44.8); MCH 30.3 pg (27.0-35.0); MCHC 33.1 g/dL (32.0-36.0); MCV 91.6 fL (80-100); MPV 7.6 fL (7.6-11.3); Monocytes % 19.5 % (3.3-12.3); Neutrophils % 57.3 % (41.7-73.7); Platelets 176 thou/uL (152-406); RBC Red Blood Cell Count 2.71 M/uL (4.33-5.43); Red Cell Distribution Width 15.9 % (12.1-15.2)
[2023-10-31 08:10] LABS: Albumin 2.5 g/dL (3.4-5.0); Albumin/Globulin Ratio 0.7 (1.1-1.8); Alkaline Phosphatase 102 U/L (45-117); Anion Gap 7.7 mEq/L (5.0-15.0); BUN Blood Urea Nitrogen 18 mg/dL (7-18); Bicarbonate 28 mEq/L (21-32); Bilirubin Total 0.5 mg/dL (0.2-1.0); Globulin 3.5 g/dL (2.3-3.5); Glomerular Filtration Rate 66 ml/min (=/>90); Glucose Level 156 mg/dL (74-106); Potassium 3.7 mEq/L (3.5-5.1); Sodium Level 142 mEq/L (136-145)
[2023-10-31 08:12] LABS: ALT/SGPT < 14 U/L (16-61); AST/SGOT < 10 U/L (15-37)
[2023-10-31] MEDS: ALBUMIN HUMAN 25% 12.5 GM, FUROSEMIDE 100 MG in NA CHLORIDE 0.9% 40 ML IV SCH (11:49)
[2023-10-31] MEDS: POTASSIUM CL SA 10 MEQ TAB PO ONE (11:50)
[2023-10-31] MEDS: FUROSEMIDE 20 MG/ 2ML VIAL IV ONE (20:38)
[2023-10-31] MEDS: ALBUMIN HUMAN 25% 50 ML IV ONE (20:38)
[2023-11-01 05:58] VITALS: BMI 29.6
[2023-11-01 07:31] LABS: Absolute Basophils 0.1 K/uL (0-0.5); Absolute Eosinophils 0.3 K/uL (0-0.5); Absolute Lymphocytes (CBC) 1.5 K/uL (0.7-4.9); Absolute Monocytes 1.8 K/uL (0.1-1.3); Absolute Neutrophil 4.3 K/uL (1.8-8.0); Basophils % 0.8 % (0-1.3); Eosinophils % 3.6 % (0-4.4); Hematocrit 28.1 % (39.6-49.0); Hemoglobin 9.3 g/dL (13.6-17.9); Lymphocytes % 19.3 % (15.3-44.8); MCH 30.4 pg (27.0-35.0); MCHC 33.1 g/dL (32.0-36.0); MCV 91.8 fL (80-100); MPV 7.5 fL (7.6-11.3); Monocytes % 22.2 % (3.3-12.3); Neutrophils % 54.1 % (41.7-73.7); Nucleated Red Blood Cells % 0.1 % (0-0); Platelets 207 thou/uL (152-406); RBC Red Blood Cell Count 3.06 M/uL (4.33-5.43)
[2023-11-01 07:50] LABS: Albumin 2.8 g/dL (3.4-5.0); Albumin/Globulin Ratio 0.7 (1.1-1.8); Alkaline Phosphatase 112 U/L (45-117); Anion Gap 9.6 mEq/L (5.0-15.0); BUN Blood Urea Nitrogen 17 mg/dL (7-18); Bicarbonate 30 mEq/L (21-32); Bilirubin Total 0.6 mg/dL (0.2-1.0); Globulin 4.2 g/dL (2.3-3.5); Glomerular Filtration Rate 54 ml/min (=/>90); Glucose Level 148 mg/dL (74-106); Magnesium 1.6 mg/dL (1.6-2.4); Phosphorus 3.2 mg/dL (2.5-4.9); Potassium 3.6 mEq/L (3.5-5.1); Sodium Level 141 mEq/L (136-145)
[2023-11-01 07:51] LABS: ALT/SGPT < 14 U/L (16-61); AST/SGOT < 10 U/L (15-37)
[2023-11-01 10:45] VITALS: O2SAT 97
--- NOTE | 2023-11-01 10:53 | P.PN ---
Subjective Date of Service: 11/01/23 Chief Complaint: Pain and swelling lower extremities Subjective: Improving <Caterina Bowers - Last Filed: 11/01/23 10:48> Date of Service: 11/01/23 <Elsa Madison Ayo - Last Filed: 11/01/23 15:45> Review of Systems 10-point ROS is otherwise unremarkable General: As per HPI Eyes: Unremarkable ENT: Unremarkable Respiratory: Unremarkable Cardiovascular: Edema Gastrointestinal: Unremarkable Genitourinary: Unremarkable Musculoskeletal: Unremarkable Integumentary: As per HPI Neurological: Unremarkable Lymphatics: Unremarkable <Caterina Bowers - Last Filed: 11/01/23 10:48> Physical Examination - Vital Signs Temperature: 98.0 F Blood Pressure: 123/54 Pulse: 65 Respirations: 20 Pulse Ox (%): 94 - Physical Exam General: Alert, In no apparent distress, Oriented x3 HEENT: Atraumatic, Normocephalic Neck: Supple Respiratory: Normal air movement Cardiovascular: Other (Bilateral lower extremities), Edema Capillary refill: <2 Seconds Gastrointestinal: Normal bowel sounds Musculoskeletal: No clubbing Integumentary: Other (Lower extremities with discoloration/crusting/decreasing edema) Neurological: Normal speech, Normal tone, Normal affect Lymphatics: No axilla or inguinal lymphadenopathy External genitalia: Deferred Rectal: Deferred <Caterina Bowers - Last Filed: 11/01/23 10:48> Assessment And Plan - Plan Assessment and Plan - Plan Bilateral lower extremity cellulitis Monitor closely on telemetry Started on IV antibiotic -11/01/2023 vancomycin and Rocephin continue Will obtain cultures -11/01/2023 gram-positive cocci in clusters Bilateral lower extremity swelling Patient has 2+ edema bilaterally Started on Lasix -11/01/2023 Lasix drip continues, creatinine stable, CBC shows less hemodilution Monitor closely ins and out CHF with mild exacerbation possibly combined systolic/diastolic Atrial fibrillation, Status post pacemaker placement Aggressive diuresis -11/01/2023 continue Lasix drip Monitor closely Will get an echocardiogram Hypertension Antihypertensives titrated Continue home medications and titrate as needed Hyperlipidemia Continue statin Diabetes Insulin sliding scale Accu-Chek before every meal and at bedtime Anemia of chronic disease Monitor H&H closely No overt bleeding at this time 11/01/2023 H/H improving with initiation of Lasix drip GI/DVT prophylaxis Advanced directive full code Discharge Plan: Home Discharge Plan: Home Plan to discharge in: 24 Hours - Code Status/Comfort Care Code Status Assessed: Yes (Full) <Caterina Bowers - Last Filed: 11/01/23 10:48> - Plan Pt seen and examined. I agree with the note by the EXTRUDING MACHINE OPERATOR. Pt complains of leg edema. He is getting lasix drip. Albumin is 1.8. WIll give iv albumin. His family members decided to leave AMA and go to the [facility] in [place]. They signed AMA document. <Elsa Madison - Last Filed: 11/01/23 15:45>
[2023-11-01] MEDS: ALBUMIN HUMAN 25% 12.5 GM, FUROSEMIDE 100 MG in NA CHLORIDE 0.9% 40 ML IV SCH (11:09)
--- NOTE | 2023-11-01 12:38 | EKG ---
Test Date: 2023-10-30 Test Time: 01:13:04 Cylinder Machine Operator: LA MEASUREMENT RESULTS: Intervals: Rate: 64 NC: QRSD: 178 QT: 492 QTc: 507 [place]: P: NC: QRS: -28 T: 124 INTERPRETIVE STATEMENTS: Wide QRS rhythm with frequent premature ventricular complexes Nonspecific intraventricular block Lateral infarct, age undetermined Inferior infarct, age undetermined Abnormal ECG Compared to ECG 09/20/2023 15:45:05 Fusion complex(es) no longer present Left-axis deviation no longer present Myocardial infarct finding still present Electronically Signed On 11-01-23 12:36:08 CDT by Fortunato Ackerman
--- NOTE | 2023-11-01 14:49 | ECHO ---
HEIGHT: 6 ft 0 in WEIGHT: 218 lb 4.122 oz DATE OF STUDY: 11/01/[address]: Amandeep Melissa DO 2-DIMENSIONAL: YES M.MODE: YES DOPPLER: YES COLOR FLOW: YES TDS: PORTABLE: YES DEFINITY: BUBBLE STUDY: DIAGNOSIS: CONGESTIVE HEART FAILURE CARDIAC HISTORY: CATHERIZATION: SURGERY: PROSTHETIC VALVE: PACEMAKER: YES MEASUREMENTS (cm) DIASTOLIC (NORMALS) SYSTOLIC (NORMALS) IVSd 1.1 (0.6-1.2) LA Diam 4.5 (1.9-4.0) LVEF 60-65% LVIDd 5.0 (3.5-5.7) LVIDs 3.3 (2.0-3.5) %FS 34% LVPWd 0.9 (0.6-1.2) Ao Diam 2.9 (2.0-3.7) 2 DIMENSIONAL ASSESSMENT: RIGHT ATRIUM: NORMAL LEFT ATRIUM: NORMAL RIGHT VENTRICLE: NORMAL LEFT VENTRICLE: NORMAL TRICUSPID VALVE: TRACE TRICUSPID REGURGITATION MITRAL VALVE: NORMAL PULMONIC VALVE: NORMAL AORTIC VALVE: NORMAL PERICARDIAL EFFUSION: NONE AORTIC ROOT: NORMAL LEFT VENTRICULAR WALL MOTION: NORMAL DOPPLER/COLOR FLOW: NORMAL COMMENTS: 1. NORMAL LEFT VENTRICULAR SYSTOLIC FUNCTION, EJECTION FRACTION 60-65%, NORMAL WALL MOTION 2. NORMAL DIASTOLIC FUNCTION 3. MODERATE PULMONARY HYPERTENSION (RIGHT VENTRICULAR SYSTOLIC PRESSURE 50-55 mmHg) 4. ELEVATED FILLING PRESSURE (RIGHT ATRIUM 15-20 mmHg) TECHNOLOGIST: BHARAT COLEMAN
--- NOTE | 2023-11-01 15:51 | P.DS ---
Admission Date: 10/30/23 Discharge Date: 11/01/23 Disposition: AMA-LEFT AGAINST MEDICAL ADVIC Discharge Condition: GOOD Reason for Admission: Pain and swelling lower extremities Brief History of Present Illness: 78 yrs old Male with past medical history of diabetes, hypertension, hypothyroidism, atrial fibrillation, dementia, pacemaker placement, lymphedema: Brought to ER with Swelling of Lower Extremity, with seeping from right leg. He also has decreased range of motion, pain, spasm, swelling of both lower extremities. Patient states that pain and swelling has been progressively getting worse and was brought to ER. Patient was assessed in the ER and was admitted for further management of bilateral lower extremity cellulitis Hospital Course: Pt is an 78yo male with past medical history of diabetes, hypertension, hypothyroidism, atrial fibrillation, dementia, pacemaker placement, and lymphedema who presented presented with bilateral leg edema and cellulitis. We gave pt lasix drip and continued iv vancomycin and rocephin. His family members were not happy that the leg edema did not improve significantly and they requested to leave AMA and go to the medical facility in [place]. We continued home meds for other chronic medical problems. Pt left AMA on 11/01/23. Vital Signs/Physical Exam: Temp Pulse Resp BP Pulse Ox 97.0 F 63 20 140/63 95 11/01/23 12:00 11/01/23 12:00 11/01/23 12:00 11/01/23 12:00 11/01/23 12:00 Laboratory Data at Discharge: WBC 8.00 thou/uL (4.3-10.9) 11/01/23 07:22 Hgb 9.3 g/dL (13.6-17.9) L D 11/01/23 07:22 Hct 28.1 % (39.6-49.0) L 11/01/23 07:22 Plt Count 207 thou/uL (152-406) 11/01/23 07:22 PT 23.3 SECONDS (9.4-12.5) H 10/30/23 01:03 INR 2.13 10/30/23 01:03 Sodium 141 mEq/L (136-145) 11/01/23 07:22 Potassium 3.6 mEq/L (3.5-5.1) 11/01/23 07:22 BUN 17 mg/dL (7-18) 11/01/23 07:22 Creatinine 1.33 mg/dL (0.70-1.30) H 11/01/23 07:22 Glucose 148 mg/dL (74-106) H 11/01/23 07:22 Phosphorus 3.2 mg/dL (2.5-4.9) 11/01/23 07:22 Magnesium 1.6 mg/dL (1.6-2.4) 11/01/23 07:22 Total Bilirubin 0.6 mg/dL (0.2-1.0) 11/01/23 07:22 AST < 10 U/L (15-37) L 11/01/23 07:22 ALT < 14 U/L (16-61) L 11/01/23 07:22 Alkaline Phosphatase 112 U/L (45-117) 11/01/23 07:22 Lipase 10 U/L (13-75) L 10/30/23 01:03 Home Medications: Amiodarone HCl [Cordarone*] 200 mg PO DAILY 10/19/17 Apixaban [Eliquis *] 2.5 mg PO BID 10/19/17 Sertraline HCl 25 mg PO DAILY 05/27/21 Insulin Lispro MIX 75/25 [Humalog Mix 75/25*] See Protocol SQ ACHS 10/30/23 Levothyroxine Sodium [Levo-T] 25 mcg PO [id number] 10/30/23 Liothyronine Sodium [Cytomel] 5 mcg PO [id number] 10/30/23 glipiZIDE [Glipizide] 5 mg PO DAILY 10/30/23 Followup: Dulce Zimmerman NP [Primary Care Provider] -
[2023-11-01 17:00] VITALS: BP 137/63; TEMP 97.2
[2023-11-01] MEDS ORDERED: VANCOMYCIN 1.5 GM in NA CHLORIDE 0.9% 500 ML IVPB SCH (21:00)
== END 2023-11-01 16:18 | disposition left against medical advice (07) | DRG 291 ==
LOC: ER 23:18 → 2ND 10-30 02:57
PROVIDERS: ADMIT Family Medicine; ATTEND Hospitalist
DX: I11.0 Hypertensive heart disease with heart failure (principal); I50.43 Acute on chronic combined systolic (congestive) and diastolic (congestive) heart failure; L03.116 Cellulitis of left lower limb; I48.20 Chronic atrial fibrillation, unspecified; L03.115 Cellulitis of right lower limb; E11.51 Type 2 diabetes mellitus with diabetic peripheral angiopathy without gangrene; E11.65 Type 2 diabetes mellitus with hyperglycemia; D63.8 Anemia in other chronic diseases classified elsewhere; E78.5 Hyperlipidemia, unspecified; E03.9 Hypothyroidism, unspecified; K21.9 Gastro-esophageal reflux disease without esophagitis; J44.9 Chronic obstructive pulmonary disease, unspecified; F03.90 Unspecified dementia, unspecified severity, without behavioral disturbance, psychotic disturbance, mood disturbance, and anxiety; Z95.0 Presence of cardiac pacemaker; Z88.8 Allergy status to other drugs, medicaments and biological substances; Z79.01 Long term (current) use of anticoagulants; Z79.52 Long term (current) use of systemic steroids; Z79.84 Long term (current) use of oral hypoglycemic drugs; Z53.29 Procedure and treatment not carried out because of patient's decision for other reasons; Z86.73 Personal history of transient ischemic attack (TIA), and cerebral infarction without residual deficits; Z79.890 Hormone replacement therapy; Z89.412 Acquired absence of left great toe; Z89.421 Acquired absence of other right toe(s); Z96.651 Presence of right artificial knee joint; Z79.899 Other long term (current) drug therapy
CPT/HCPCS: 36415; 71045; 71250; 74176; 80048; 80053; 80076; 80202; 81003; 82947; 83605; 83690; 83735; 83880; 84100; 84484; 85025; 85610; 87040; 87077; 87186; 87205; 93005; 93306; 93970; 94760; 96361; 96365; 97116; 97161; 99285; J0295; J0696; J1650; J1940; J3475; J7030; J7040; P9047

== ENCOUNTER 2024-01-24 17:27 | Inpatient (IN) | payer OTHER ==
--- NOTE | 2024-01-24 19:02 | EDPHYS ---
Physician Documentation [facility] Name: Ely Coley Age: 78 yrs Sex: Male : 1945 Arrival Date: 01/24/2024 Time: 17:27 Bed 18 Private MD: ED Physician Jacobo Joy HPI: 01/23 18:48 This 78 yrs old Male presents to ER via Wheelchair with complaints of Fall kanchan Injury, Head Injury-Adult, Swelling. 18:48 Details of fall: The patient fell from an upright position, while walking. Onset: The kanchan symptoms/episode began/occurred 2 day(s) ago. Associated injuries: The patient sustained injury to the head, neck injury. Severity of symptoms: At their worst the symptoms were mild, moderate, in the emergency department the symptoms are unchanged. The patient has experienced similar episodes in the past, a few times. Historical: - Allergies: 18:06 Glucophage; cm10 18:06 metformin; cm10 18:06 steroids; cm10 - Home Meds: 18:06 amiodarone 200 mg oral tablet 1 tab daily [Active]; Plavix 75 mg Oral tablet 1 tab cm10 daily [Active]; glipizide 5 mg Oral tablet daily [Active]; Eliquis 2.5 mg oral tablet 1 tab 2 times per day [Active]; Humalog Mix 75-25(U-100)Insuln 100 unit/mL (75-25) Sub-Q suspension [Active]; sertraline 25 mg oral tablet 1 tab daily [Active]; spironolactone 25 mg Oral tablet 2 times per day [Active]; levothyroxine 25 mcg tablet daily [Active]; liothyronine 25 mcg oral tablet 1 tab daily [Active]; - PMHx: 18:06 Atrial fibrillation; Dementia; diabetes mellitus; Hypertensive disorder; cm10 hyperthyroidism; - PSHx: 18:06 Pacemaker placement and replacement; toe amputation bilat; cm10 - Immunization history:: Adult Immunizations up to date. - Infectious Disease History:: Denies. - Social history:: Smoking status: Patient denies any tobacco usage or history of. ROS: 18:48 Constitutional: Negative for fever, chills, and weight loss, Eyes: Negative for injury, kanchan pain, redness, and discharge, ENT: Negative for injury, pain, and discharge, Neck: Negative for injury, pain, and swelling, Cardiovascular: Negative for chest pain, palpitations, and edema, Respiratory: Negative for shortness of breath, cough, wheezing, and pleuritic chest pain, Abdomen/GI: Negative for abdominal pain, nausea, vomiting, diarrhea, and constipation, Back: Negative for injury and pain, : Negative for injury, bleeding, discharge, and swelling, MS/Extremity: Negative for injury and deformity, Skin: Negative for injury, rash, and discoloration, Psych: Negative for depression, anxiety, suicide ideation, homicidal ideation, and hallucinations, Allergy/Immunology: Negative for hives, rash, and allergies, Endocrine: Negative for neck swelling, polydipsia, polyuria, polyphagia, and marked weight changes, Hematologic/Lymphatic: Negative for swollen nodes, abnormal bleeding, and unusual bruising, 18:48 Neuro: Positive for headache, Exam: 18:48 Constitutional: This is a well developed, well nourished patient who is awake, alert, kanchan and in no acute distress. Eyes: Pupils equal round and reactive to light, extra-ocular motions intact. Lids and lashes normal. Conjunctiva and sclera are non-icteric and not injected. Cornea within normal limits. Periorbital areas with no swelling, redness, or edema. ENT: Nares patent. No nasal discharge, no septal abnormalities noted. Tympanic membranes are normal and external auditory canals are clear. Oropharynx with no redness, swelling, or masses, exudates, or evidence of obstruction, uvula midline. Mucous membranes moist. Neck: Trachea midline, no thyromegaly or masses palpated, and no cervical lymphadenopathy. Supple, full range of motion without nuchal rigidity, or vertebral point tenderness. No Meningismus. Chest/axilla: Normal chest wall appearance and motion. Nontender with no deformity. No lesions are appreciated. Cardiovascular: Regular rate and rhythm with a normal S1 and S2. No gallops, murmurs, or rubs. Normal PMI, no JVD. No pulse deficits. Respiratory: Lungs have equal breath sounds bilaterally, clear to auscultation and percussion. No rales, rhonchi or wheezes noted. No increased work of breathing, no retractions or nasal flaring. Abdomen/GI: Soft, non-tender, with normal bowel sounds. No distension or tympany. No guarding or rebound. No evidence of tenderness throughout. Back: No spinal tenderness. No costovertebral tenderness. Full range of motion. Male : Normal genitalia with no discharge or lesions. Skin: Warm, dry with normal turgor. Normal color with no rashes, no lesions, and no evidence of cellulitis. MS/ Extremity: Pulses equal, no cyanosis. Neurovascular intact. Full, normal range of motion., bilateral aka Neuro: Awake and alert, GCS 15, oriented to person, place, time, and situation. Cranial nerves II-XII grossly intact. Motor strength 5/5 in all extremities. Sensory grossly intact. Cerebellar exam normal. Normal gait. Psych: Awake, alert, with orientation to person, place and time. Behavior, mood, and affect are within normal limits. 18:48 Head/face: Noted is contusion, ecchymosis, swelling, tenderness, that is mild, that is moderate, of the left moravian, left frontal area, left side of the back of head, left temporal area and left occipital area, 22:49 ECG was reviewed by the Attending Physician. EKG at 2155 electronic ventricular sp4 pacemaker rate 60 Vital Signs: 18:05 BP 102 / 48; Pulse 61; Resp 16; Temp 97.9; Pulse Ox 95% on R/A; Weight 97.52 kg; Height cm10 6 ft. 0 in. ; Pain 8/10; 18:40 BP 118 / 50; Pulse 59; Resp 16 S; Pulse Ox 97% on R/A; kc6 19:00 BP 117 / 56; Pulse 64; Resp 18; Pulse Ox 100% ; kj2 20:21 BP 116 / 57; Pulse 89; Resp 20; Pulse Ox 97% on R/A; kj2 21:41 BP 122 / 55; Pulse 59; Resp 18; Pulse Ox 99% on R/A; kj2 22:40 BP 123 / 53; Pulse 58; Resp 18; Pulse Ox 97% on R/A; kj2 23:40 BP 124 / 52; Pulse 60; Resp 18; Pulse Ox 98% on R/A; kj2 01/24 00:40 BP 122 / 55; Pulse 59; Resp 18; Temp 98; Pulse Ox 98% on R/A; kj2 01/23 18:05 Body Mass Index 29.16 (97.52 kg, 182.88 cm) cm10 01/23 18:05 Pain Scale: Adult cm10 [place] Score: 01/23 18:50 Eye Response: spontaneous(4). Motor Response: obeys commands(6). Verbal Response: kanchan oriented(5). Total: 15. 22:49 Eye Response: spontaneous(4). Motor Response: obeys commands(6). Verbal Response: sp4 oriented(5). Total: 15. MDM: 17:51 Medical Screening Exam initiated kanchan 18:29 Medical Screening Exam initiated kanchan 18:50 Differential diagnosis: Contusion of Hematoma on Laceration of Intracranial bleed- kanchan Concussion without LOC. cerebral contusion, cervical epidural bleed, cluster headache. Differential diagnosis: closed head injury, contusion, fracture, laceration, multiple trauma, sprain, strain. Data reviewed: vital signs, nurses notes. I considered the following discharge prescriptions or medication management in the emergency department Medications were administered in the Emergency Department. See MAR. Independent interpretation of the following test(s) in the Emergency Department CT Scan: My interpretation is CT HEAD / C SPINE. Test considered but Not performed: Labs: NO LABS. Care significantly affected by the following chronic conditions: Diabetes, Hypertension, A FIB,DEMEMTIA, HYPOTHYROID. Counseling: I had a detailed discussion with the patient and/or guardian regarding the historical points, exam findings, and any diagnostic results supporting the discharge/admit diagnosis, lab results, radiology results, the need for outpatient follow up, for definitive care, a family practitioner. 20:29 ED course: DR Kathy PARK. [facility] 22:46 ED course: COMPARISON: 11/25/2017 FINDINGS: The lack of intravenous contrast limits the sp4 sensitivity of this exam for evaluation of solid visceral organs, vascular structures, and retroperitoneum. LOWER CHEST: Moderate layering bilateral pleural effusions. Underlying segmental airspace opacification, may reflect atelectasis. LIVER: Bulky contour with mild capsular nodularity especially along the inferior right lobe. No focal lesion. BILIARY SYSTEM: Status post cholecystectomy. SPLEEN: Normal size. No focal lesion. PANCREAS: No mass, ductal dilation, or shweta-pancreatic fluid. ADRENALS: Normal; no mass. KIDNEYS AND URETERS: Normal size and contour. No hydronephrosis. URINARY BLADDER: Normal contour. GASTROINTESTINAL TRACT: No evidence of bowel obstruction, free air or abscess. Mild free ascites. APPENDIX: Normal appendix. LYMPH NODES: No lymphadenopathy. RADIOLOGY SERVICES REPORT MUSCULOSKELETAL: No acute or suspicious osseous abnormality. ADDITIONAL FINDINGS: Diffuse body wall edema. IMPRESSION: Moderate layering bilateral pleural effusions. Underlying dependent segmental airspace opacification with may reflect atelectasis. Liver demonstrates bulky appearance with mildly nodular contour, may suggest early cirrhotic or fibrotic change. Mild free ascites and diffuse body wall edema. Findings could relate to fluid overload. . ED course: COMPARISON: 09/20/2023 TECHNIQUE: Multiple contiguous axial images were obtained and a CT of the brain without contrast. Sagittal and coronal reformats were performed. FINDINGS: No evidence of hydrocephalus, intracranial hemorrhage, or extra-axial fluid collection. Mild diffuse parenchymal volume loss again seen. Stable encephalomalacia involving the left occipital lobe and mesial through posterior left temporal lobe, [employer] distribution, suggesting remote ischemia. The calvarium is intact. The visualized paranasal sinuses and mastoid air cells are essentially clear. Small hematoma near the vertex left of midline. IMPRESSION: No evidence of acute intracranial abnormality. Small scalp hematoma near the vertex left of midline. Stable left temporal/occipital encephalomalacia suggesting sequelae of remote [employer] territory ischemia. EXAM: CT of the cervical spine without contrast HISTORY: Pain;Trauma COMPARISON: None TECHNIQUE: Multiple contiguous axial images were obtained in a CT of the cervical spine without contrast. Sagittal and coronal reformats were performed. FINDINGS: The vertebral bodies demonstrate normal height and alignment. No evidence of acute fracture or subluxation.. No degenerative changes are present. No prevertebral soft tissue swelling is RADIOLOGY SERVICES REPORT seen. The posterior facets are well aligned. Normal alignment of the skull base with the cervical spine is seen. Layering bilateral small to moderate pleural effusions. IMPRESSION: No evidence of acute osseous abnormality of the cervical spine. . 22:51 ED course: EXAMINATION: ONE VIEW CHEST XR CLINICAL INDICATION: Male, 78 years sp4 old.,Cough;Dyspnea TECHNIQUE: Frontal chest projection is submitted. Examination is limited by patient positioning and technique. COMPARISON: 12/27/2023 FINDINGS: Portable central interstitial prominence and perihilar patchy opacities. Stable effusions slightly larger on the right. No pneumothorax.. The heart is normal in size. Mediastinal contours are unremarkable. IMPRESSION: Stable findings suggestive of congestive heart failure or pulmonary edema.. 01/23 20:28 Order name: Basic Metabolic Panel; Complete Time: 22:34 kanchan 01/23 20:28 Order name: CBC with Diff; Complete Time: 22:34 kanchan 01/23 20:28 Order name: Magnesium; Complete Time: 22:34 kanchan 01/23 20:28 Order name: NT PRO-BNP; Complete Time: 22:34 kanchan 01/23 20:28 Order name: PT-INR; Complete Time: 21:45 kanchan 01/23 20:28 Order name: Troponin HS; Complete Time: 22:34 kanchan 01/23 20:28 Order name: TSH; Complete Time: 22:34 kanchan 01/23 20:28 Order name: Lipase; Complete Time: 22:34 kanchan 01/23 20:28 Order name: Urinalysis w/ reflexes kanchan 01/23 22:02 Order name: T4 Free; Complete Time: 22:34 EDMS 01/23 22:44 Order name: LFT's sp4 01/23 23:20 Order name: Urinalysis w/ reflexes EDMS 01/23 23:20 Order name: CBC with Automated Diff EDMS 01/23 23:20 Order name: CBC with Automated Diff EDMS 01/23 23:20 Order name: Comprehensive Metabolic Panel EDMS 01/23 23:20 Order name: Comprehensive Metabolic Panel EDMS 01/23 23:20 Order name: Magnesium EDMS 01/23 23:20 Order name: Magnesium EDMS 01/23 23:20 Order name: Phosphorus EDMS 01/23 23:20 Order name: Phosphorus EDMS 01/23 23:20 Order name: Troponin High Sensitivity EDMS 01/23 23:20 Order name: Troponin High Sensitivity EDMS 01/23 23:20 Order name: Troponin High Sensitivity EDMS 01/23 23:20 Order name: Troponin High Sensitivity EDMS 01/23 18:00 Order name: CT Head C Spine; Complete Time: 20:21 kanchan 01/23 20:28 Order name: XRAY Chest (1 view) kanchan 01/23 20:28 Order name: CT Abd/Pelvis - Without Contrast; Complete Time: 22:34 kanchan 01/23 23:23 Order name: Echo with Doppler EDMS 01/23 20:28 Order name: EKG; Complete Time: 20:29 kanchan 01/23 18:00 Order name: Ice pack; Complete Time: 18:25 kanchan 01/23 20:28 Order name: Cardiac monitoring; Complete Time: 21:38 kanchan 01/23 20:28 Order name: EKG - Nurse/Tech; Complete Time: 22:02 [facility] 01/23 20:28 Order name: IV Saline Lock; Complete Time: 21:13 [facility] 01/23 20:28 Order name: Labs collected and sent; Complete Time: 21:13 [facility] 01/23 20:28 Order name: O2 Per Protocol; Complete Time: 21:38 [facility] 01/23 20:28 Order name: O2 Sat Monitoring; Complete Time: 21:39 [facility] 01/23 22:45 Order name: Misc. Order: apply Pure Wic for male; Complete Time: 23:19 sp4 EC:55 Rate is 60 beats/min. Rhythm is regular, Paced. Clinical impression: No evidence of sp4 ischemia. Interpreted by me. Reviewed by me. Administered Medications: 23:19 Drug: Furosemide IVP 40 mg IVP once; give over 2 minutes Route: IVP; Site: right kj2 forearm; 01/24 01:05 Follow up: Response: No adverse reaction [facility] 01/23 23:52 Drug: Albumin IVPB 25 grams 100 ml IVPB once; (Note: Albumin 25% concentration) Volume: kj2 100 ml; Route: IVPB; Site: right forearm; 01/24 01:05 Follow up: IV Status: Completed infusion; IV Intake: 100ml kj2 Disposition Summary: 01/24/24 22:49 Hospitalization Ordered Notes: Hospitalization Status: Inpatient Admission sp4 Provider: Shawn Melissa sp4 Condition: Stable(01/24/24 22:49) sp4 Problem: new(01/24/24 22:49) sp4 Symptoms: are unchanged(01/24/24 22:49) sp4 Bed/Room Type: Standard sp4 Location: Intensive Care Unit(01/24/24 23:40) rv1 Room Assignment: 3-(01/25/24 00:49) rv1 Diagnosis - Generalized edema sp4 - Acute diastolic heart failure, acute on chronic renal insufficiency, bilateral sp4 lower extremity edema with pitting, acute fall, acute head injury. Forms: - Medication Reconciliation Form sp4 - SBAR form sp4 - Leadership Thank You Letter sp4 Critical care time excluding procedures: 01/23 22:50 Critical care time: Bedside Care: 36 minutes, Consultation: 12 minutes, Family sp4 Intervention: 12 minutes. Total time: 60 minutes Signatures: Dispatcher [employer] Derrick Tijerina MD MD cha Villegas, Jeanne rv1 Jacobo Joy MD MD sp4 Yvrose Henderson RN RN cm10 Love Interiano RN RN kj2 Corrections: (The following items were deleted from the chart) 20:25 19:02 Home kanchan kanchan 20:25 19:02 new kanchan kanchan 20:25 19:02 have improved kanchan kanchan 20:25 19:02 Stable kanchan kanchan 20:25 19:02 Fall on same level, unspecified kanchan kanchan 20:25 19:02 Unspecified injury of head, initial encounter kanchan kanchan 20:25 19:02 detention (current) use of anticoagulants - ELIQUIS/ PLAVIX kanchan kanchan 23:40 22:49 Telemetry/MedSurg (Inpatient) sp4 rv1 23:40 22:49 sp4 rv1 01/24 00:47 12 23:40 3- rv1 rv1 01/24 00:49 00:47 rv1 rv1
--- NOTE | 2024-01-24 19:02 | RAD REPORT ---
EXAM: CT brain without contrast HISTORY: Pain;Trauma COMPARISON: 09/20/2023 TECHNIQUE: Multiple contiguous axial images were obtained and a CT of the brain without contrast. Sag ittal and coronal reformats were performed. FINDINGS: No evidence of hydrocephalus, intracranial hemorrhage, or extra-axial fluid collection. Mild diffuse parenchymal volume loss again seen. Stable encephalomalacia involving the left occipita l lobe and mesial through posterior left temporal lobe, [employer] distribution, suggesting remote ischemia. The calvarium is intact. The visualized paranasal sinuses and mastoid air cells are essentially clear . Small hematoma near the vertex left of midline. IMPRESSION: No evidence of acute intracranial abnormality. Small scalp hematoma near the vertex left of midline. Stable left temporal/occipital encephalomalacia suggesting sequelae of remote [employer] territory ischemia. EXAM: CT of the cervical spine without contrast HISTORY: Pain;Trauma COMPARISON: None TECHNIQUE: Multiple contiguous axial images were obtained in a CT of the cervical spine without contr ast. Sagittal and coronal reformats were performed. FINDINGS: The vertebral bodies demonstrate normal height and alignment. No evidence of acute fracture or subluxation.. No degenerative changes are present. No prevertebral soft tissue swelling is seen. The posterior facets are well aligned. Normal alignment of the skull base with the cervical spine is seen. Layering bilateral small to moderate pleural effusions. IMPRESSION: No evidence of acute osseous abnormality of the cervical spine.
--- NOTE | 2024-01-24 19:02 | ER ---
Nurse's Notes [facility] Name: Ely Coley Age: 78 yrs Sex: Male : 1945 Arrival Date: 01/24/2024 Time: 17:27 Bed 18 Private MD: Diagnosis: Generalized edema;Acute diastolic heart failure, acute on chronic renal insufficiency, bilateral lower extremity edema with pitting, acute fall, acute head injury. Presentation: 01/23 18:04 Chief complaint: Patient states: SLIP AND FALL 2 DAYS AGO. PT STATES THAT HE WAS USING cm10 HIS WALKER AND HE FELL BACK AND HIT HIS HEAD. PT HAS NOTED BRUISING TO LEFT SIDE OF HEAD. PT TAKES PLAVIX AND ELIQUIS DAILY. PT COMPLAINING OF RINGING IN HIS EARS. 18:05 Coronavirus screen: Client denies travel out of the [place] in the last 14 days. Ebola cm10 Screen: Patient denies travel to an Ebola-affected area in the 21 days before illness onset. No symptoms or risks identified at this time. Initial Sepsis Screen: Does the patient meet any 2 criteria? No. Patient's initial sepsis screen is negative. Does the patient have a suspected source of infection? No. Patient's initial sepsis screen is negative. Risk Assessment: Do you want to hurt yourself or someone else? Patient reports no desire to harm self or others. Onset of symptoms was January 22, 2024. 18:05 Method Of Arrival: Wheelchair cm10 18:05 Acuity: MITCH 3 cm10 Historical: - Allergies: 18:06 Glucophage; cm10 18:06 metformin; cm10 18:06 steroids; cm10 - Home Meds: 18:06 amiodarone 200 mg oral tablet 1 tab daily [Active]; Plavix 75 mg Oral tablet 1 tab cm10 daily [Active]; glipizide 5 mg Oral tablet daily [Active]; Eliquis 2.5 mg oral tablet 1 tab 2 times per day [Active]; Humalog Mix 75-25(U-100)Insuln 100 unit/mL (75-25) Sub-Q suspension [Active]; sertraline 25 mg oral tablet 1 tab daily [Active]; spironolactone 25 mg Oral tablet 2 times per day [Active]; levothyroxine 25 mcg tablet daily [Active]; liothyronine 25 mcg oral tablet 1 tab daily [Active]; - PMHx: 18:06 Atrial fibrillation; Dementia; diabetes mellitus; Hypertensive disorder; cm10 hyperthyroidism; - PSHx: 18:06 Pacemaker placement and replacement; toe amputation bilat; cm10 - Immunization history:: Adult Immunizations up to date. - Infectious Disease History:: Denies. - Social history:: Smoking status: Patient denies any tobacco usage or history of. Screenin:40 [facility] ED Fall Risk Assessment (Adult) History of falling in the last 3 months, kc6 including since admission Yes- fall prone (multiple falls) (3 pts) Confusion or Disorientation No (0 pts) Intoxicated or Sedated No (0 pts) Impaired Gait Yes (1 pt) Mobility Assist Device Used Yes (1 pt) Altered Elimination No (0 pt) Score/Fall Risk Level 3 or more points = High Risk Oriented to surroundings, Maintained a safe environment, Educated pt \T\ family on fall prevention, incl call for assistance when getting out of bed, Assessed \T\ reinforced patient's understanding of fall precautions. Abuse screen: Denies threats or abuse. Denies injuries from another. Nutritional screening: No deficits noted. Tuberculosis screening: No symptoms or risk factors identified. Assessment: 18:40 General: Appears in no apparent distress. comfortable, well groomed, well developed, kc6 Behavior is calm, cooperative, appropriate for age. Pain: Complains of pain in neck and head. Neuro: Level of Consciousness is awake, alert, obeys commands, Oriented to person, place, time, situation, Appropriate for age Reports headache. Cardiovascular: Capillary refill < 3 seconds. Respiratory: Airway is patent Trachea midline Respiratory effort is even, unlabored, Respiratory pattern is regular, symmetrical. GI: No signs and/or symptoms were reported involving the gastrointestinal system. : No signs and/or symptoms were reported regarding the genitourinary system. EENT: No signs and/or symptoms were reported regarding the EENT system. Derm: Skin is intact, is fragile, is thin, with poor turgor Skin is dry, Skin is normal, Skin temperature is warm Bruising that is dark purple, on top of head, left nondenominational and left eye. Musculoskeletal: No signs and/or symptoms reported regarding the musculoskeletal system. Circulation, motion, and sensation intact. Capillary refill < 3 seconds, Range of motion: intact in all extremities. 19:00 Reassessment: Patient appears in no apparent distress at this time. Patient and/or kj2 family updated on plan of care and expected duration. Pain level reassessed. Patient is alert, oriented x 3, equal unlabored respirations, skin warm/dry/pink. 20:24 Reassessment: discharge on hold per MD orders. kj2 20:40 Reassessment: discharge placed on hold due to patient status per MD. kj2 21:40 Reassessment: Patient appears in no apparent distress at this time. Patient and/or kj2 family updated on plan of care and expected duration. Pain level reassessed. Patient is alert, oriented x 3, equal unlabored respirations, skin warm/dry/pink. 22:40 Reassessment: Patient appears in no apparent distress at this time. Patient and/or kj2 family updated on plan of care and expected duration. Pain level reassessed. Patient is alert, oriented x 3, equal unlabored respirations, skin warm/dry/pink. 23:15 Reassessment: \T\ 2310 Pure Wicc placed, pt hadley well. kj2 23:40 Reassessment: Patient appears in no apparent distress at this time. Patient and/or kj2 family updated on plan of care and expected duration. Pain level reassessed. Patient is alert, oriented x 3, equal unlabored respirations, skin warm/dry/pink. 01/24 00:40 Reassessment: Patient appears in no apparent distress at this time. Patient and/or kj2 family updated on plan of care and expected duration. Pain level reassessed. Patient is alert, oriented x 3, equal unlabored respirations, skin warm/dry/pink. 01:25 Reassessment: report given to JUDSON Pillai in ICU. kj2 01:29 Reassessment: Patient appears in no apparent distress at this time. Patient and/or kj2 family updated on plan of care and expected duration. Pain level reassessed. Patient is alert, oriented x 3, equal unlabored respirations, skin warm/dry/pink. Vital Signs: 01/23 18:05 BP 102 / 48; Pulse 61; Resp 16; Temp 97.9; Pulse Ox 95% on R/A; Weight 97.52 kg; Height cm10 6 ft. 0 in. ; Pain 8/10; 18:40 BP 118 / 50; Pulse 59; Resp 16 S; Pulse Ox 97% on R/A; kc6 19:00 BP 117 / 56; Pulse 64; Resp 18; Pulse Ox 100% ; kj2 20:21 BP 116 / 57; Pulse 89; Resp 20; Pulse Ox 97% on R/A; kj2 21:41 BP 122 / 55; Pulse 59; Resp 18; Pulse Ox 99% on R/A; kj2 22:40 BP 123 / 53; Pulse 58; Resp 18; Pulse Ox 97% on R/A; kj2 23:40 BP 124 / 52; Pulse 60; Resp 18; Pulse Ox 98% on R/A; kj2 01/24 00:40 BP 122 / 55; Pulse 59; Resp 18; Temp 98; Pulse Ox 98% on R/A; kj2 01/23 18:05 Body Mass Index 29.16 (97.52 kg, 182.88 cm) cm10 01/23 18:05 Pain Scale: Adult cm10 Lopeno Coma Score: 01/23 18:50 Eye Response: spontaneous(4). Motor Response: obeys commands(6). Verbal Response: kanchan oriented(5). Total: 15. 22:49 Eye Response: spontaneous(4). Motor Response: obeys commands(6). Verbal Response: sp4 oriented(5). Total: 15. ED Course: 17:30 Patient arrived in ED. mr 17:52 Derrick Jansen MD is Attending Physician. kanchan 18:06 Triage completed. cm10 18:10 Arm band placed on right wrist. Patient placed in an exam room, on a stretcher. cm10 18:18 Oksana Ramirez RN is Primary Nurse. kc6 18:23 CT Head C Spine In Process Unspecified. EDMS 18:39 Patient has correct armband on for positive identification. Bed in low position. Call kc6 light in reach. Side rails up X2. Adult w/ patient. Pulse ox on. NIBP on. Door closed. Noise minimized. Lights dimmed. Pillow given. Ice pack to injury. 18:39 Patient maintains SpO2 saturation greater than 95% on room air. kc6 19:00 Provided Education on: call light. kj2 19:08 Report given to Love Interiano RN. kc6 20:23 No provider procedures requiring assistance completed. kj2 21:12 Inserted saline lock: 22 gauge in right forearm, using aseptic technique. Blood oe collected. Flushed with 10 mL NS. 21:13 Basic Metabolic Panel Sent. oe 21:14 CBC with Diff Sent. oe 21:14 Magnesium Sent. oe 21:14 NT PRO-BNP Sent. oe 21:14 PT-INR Sent. oe 21:14 Troponin HS Sent. oe 21:30 CT Abd/Pelvis - Without Contrast In Process Unspecified. EDMS 21:44 XRAY Chest (1 view) In Process Unspecified. EDMS 21:45 Attending Physician role handed off by Derrick Jansen MD sp4 21:45 Jacobo Joy MD is Attending Physician. sp4 22:48 Shawn Melissa MD is Hospitalizing Provider. sp4 01/24 01:35 Patient admitted, IV remains in place. kj2 Administered Medications: 01/23 23:19 Drug: Furosemide IVP 40 mg IVP once; give over 2 minutes Route: IVP; Site: right kj2 forearm; 01/24 01:05 Follow up: Response: No adverse reaction kj2 01/23 23:52 Drug: Albumin IVPB 25 grams 100 ml IVPB once; (Note: Albumin 25% concentration) Volume: kj2 100 ml; Route: IVPB; Site: right forearm; 01/24 01:05 Follow up: IV Status: Completed infusion; IV Intake: 100ml kj2 Medication: 01/23 20:23 VIS not applicable for this client. kj2 Intake: 01/24 01:05 IV: 100ml; Total: 100ml. kj2 Outcome: 01/23 19:02 Discharge ordered by . kanchan 20:23 Discharged to home via wheelchair, with family, kj2 20:23 Condition: stable 20:23 Discharge instructions given to patient, Instructed on discharge instructions, follow up and referral plans. Demonstrated understanding of instructions, follow-up care, medications, Prescriptions given X 1, 22:49 Decision to Hospitalize by Provider. sp4 01/24 02:02 Patient left the ED. kj2 Signatures: Dispatcher [employer] EDMS Derrick Jansen MD MD cha Rivera, Mary, Reg Reg mr Fatoumata, Babatunde Oksana Connor RN RN kc6 Jacobo Joy MD MD sp4 Yvrose Henderson RN RN cm10 Love Interiano RN RN kj2 Corrections: (The following items were deleted from the chart) 01/23 18:42 18:40 [facility] ED Fall Risk Assessment (Adult) History of falling in the last 3 months, kc6 including since admission No falls in past 3 months (0 pts) Confusion or Disorientation No (0 pts) Intoxicated or Sedated No (0 pts) Impaired Gait No (0 pts) Mobility Assist Device Used No (0 pt) Altered Elimination No (0 pt) Score/Fall Risk Level 0 - 2 = Low Risk Oriented to surroundings, Maintained a safe environment, Educated pt \T\ family on fall prevention, incl call for assistance when getting out of bed, kc6 01/24 01:37 01:29 Reassessment: \T\ 2310 Pure Wicc placed, pt hadley well kj2 kj2
[2024-01-24 21:37] LABS: Absolute Basophils 0.1 K/uL (0-0.5); Absolute Eosinophils 0.4 K/uL (0-0.5); Absolute Lymphocytes (CBC) 1.8 K/uL (0.7-4.9); Absolute Monocytes 2.6 K/uL (0.1-1.3); Absolute Neutrophil 7.7 K/uL (1.8-8.0); Basophils % 0.6 % (0-1.3); Eosinophils % 3.1 % (0-4.4); Hematocrit 24.9 % (39.6-49.0); Hemoglobin 7.8 g/dL (13.6-17.9); Lymphocytes % 14.4 % (15.3-44.8); MCHC 31.5 g/dL (32.0-36.0); MCV 85.7 fL (80-100); Monocytes % 20.9 % (3.3-12.3); Platelets 208 thou/uL (152-406); Red Cell Distribution Width 16.6 % (12.1-15.2)
[2024-01-24 21:43] LABS: PT Prothrombin Time 22.2 SECONDS (9.4-12.5); Protime INR 2.02
[2024-01-24 21:57] LABS: Anion Gap 9.3 mEq/L (5.0-15.0); Magnesium 2.5 mg/dL (1.6-2.4); Potassium 4.3 mEq/L (3.5-5.1); Troponin High Sensitivity 12.4 pg/mL (<58.9)
[2024-01-24 21:59] LABS: Thyroid Stimulating Hormone 4.63 uIU/mL (0.358-3.740)
--- NOTE | 2024-01-24 22:18 | RAD REPORT ---
EXAMINATION: CT Abdomen Pelvis Wo Contrast CLINICAL INDICATION: Male, 78 years old. Abd pain;Abdominal distention TECHNIQUE: CT abdomen and pelvis was performed, without IV contrast, as per department protocol. Axia l, sagittal and coronal reconstructions were obtained. One or more of the following dose reduction techniques were used: Automated exposure control, adjustment of the mA and kV according to the patien t size, and iterative reconstruction. Unless otherwise specified, incidental findings do not require dedicated imaging follow-up. COMPARISON: 11/25/2017 FINDINGS: The lack of intravenous contrast limits the sensitivity of this exam for evaluation of solid visceral organs, vascular structures, and retroperitoneum. LOWER CHEST: Moderate layering bilateral pleural effusions. Underlying segmental airspace opacificati on, may reflect atelectasis. LIVER: Bulky contour with mild capsular nodularity especially along the inferior right lobe. No focal lesion. BILIARY SYSTEM: Status post cholecystectomy. SPLEEN: Normal size. No focal lesion. PANCREAS: No mass, ductal dilation, or shweta-pancreatic fluid. ADRENALS: Normal; no mass. KIDNEYS AND URETERS: Normal size and contour. No hydronephrosis. URINARY BLADDER: Normal contour. GASTROINTESTINAL TRACT: No evidence of bowel obstruction, free air or abscess. Mild free ascites. APPENDIX: Normal appendix. LYMPH NODES: No lymphadenopathy. MUSCULOSKELETAL: No acute or suspicious osseous abnormality. ADDITIONAL FINDINGS: Diffuse body wall edema. IMPRESSION: Moderate layering bilateral pleural effusions. Underlying dependent segmental airspace opacification with may reflect atelectasis. Liver demonstrates bulky appearance with mildly nodular contour, may suggest early cirrhotic or fibro tic change. Mild free ascites and diffuse body wall edema. Findings could relate to fluid overload.
--- NOTE | 2024-01-24 22:49 | RAD REPORT ---
EXAMINATION: ONE VIEW CHEST XR CLINICAL INDICATION: Male, 78 years old.,Cough;Dyspnea TECHNIQUE: Frontal chest projection is submitted. Examination is limited by patient positioning and t echnique. COMPARISON: 12/27/2023 FINDINGS: Portable central interstitial prominence and perihilar patchy opacities. Stable effusions slightly la rger on the right. No pneumothorax.. The heart is normal in size. Mediastinal contours are unremarkable. IMPRESSION: Stable findings suggestive of congestive heart failure or pulmonary edema.
[2024-01-24] MEDS ORDERED: ALBUMIN HUMAN 25% 50 ML IV ONE (22:58)
[2024-01-24] MEDS ORDERED: FUROSEMIDE 40 MG/4 ML VIAL ONE (22:59)
--- NOTE | 2024-01-24 23:12 | P.HP ---
Certification for Inpatient Patient admitted to: Inpatient With expected LOS: >2 Midnights Practitioner: I am a practitioner with admitting privileges, knowledge of patient current condition, hospital course, and medical plan of care. Services: Services provided to patient in accordance with Admission requirements found in Title 42 Section 412.3 of the Code of Federal Regulations Patient History Date of Service: 01/25/24 Reason for admission: CHF Exacerbation History of Present Illness: 78 yrs old Male with a past medical history significant for A-fib on Eliquis, DM [id number], dementia, hypothyroidism, and chronic cellulitis of bilateral lower extremities and hypertension presented to the emergency room complaining of Fall . The patient fell from an upright position, while walking ,occurred 2 days ago. The patient sustained injury to the head, neck . Pain is controlled well. Patient started having shortness of breath which is progressively getting worse. Patient was assessed in the ER and was found to have CHF exacerbation and was admitted for further management Denies any chest pain. No fever or chills. No nausea vomiting or diarrhea. Allergies metformin [From Glucophage] Allergy (Verified 10/30/23 05:21) Shortness of breath metoprolol Adverse Reaction (Verified 10/30/23 05:21) Shortness of breath steroids Allergy (Unknown, Uncoded 06/19/20 11:25) Unknown Home medications list reviewed: Yes Home Medications: Amiodarone HCl [Cordarone*] 200 mg PO DAILY 10/19/17 Apixaban [Eliquis *] 2.5 mg PO BID 10/19/17 Sertraline HCl 25 mg PO DAILY 05/27/21 Insulin Lispro MIX 75/25 [Humalog Mix 75/25*] See Protocol SQ ACHS 10/30/23 Levothyroxine Sodium [Levo-T] 25 mcg PO [id number] 10/30/23 Liothyronine Sodium [Cytomel] 5 mcg PO [id number] 10/30/23 Gabapentin 100 mg PO TID 12/26/23 Spironolactone 25 mg PO DAILY 12/26/23 glipiZIDE [Glipizide] 2.5 mg PO BID 30 Days #60 tab 12/29/23 - Past Medical/Surgical History Diabetic: Yes Past Medical History: Reviewed- Non-Contributory -: History CVA -: Atrial fibrillation now with pacemaker -: DM -: chronic b/l LE cellulitis -: PVD -: GERD -: Moderate pulmonary hypertension -: CHF, diastolic dysfunction -: hypothyroidism -: dementia Past Surgical History: Reviewed- Non-Contributory -: R. total knee replacement -: kristian. cataract sx -: Right thigh staph inf. -: L. big toe amputated -: Back sx Psychosocial/ Personal History: The patient is . - Family History Family History: Reviewed- Non-Contributory - Family History Mother -: Heart disease Father -: Heart disease Brother -: Heart disease, Hypertension, Diabetes, Cancer - Social History Smoking Status: Never smoker Alcohol use: No CD- Drugs: No Caffeine use: Yes Review of Systems 10-point ROS is otherwise unremarkable Physical Examination - Vital Signs Temperature: 97.9 F Blood Pressure: 102/48 Pulse: 61 Respirations: 18 Pulse Ox (%): 94 - Physical Exam General: Alert, Mild distress HEENT: Normocephalic Neck: Supple Respiratory: Normal air movement, Crackles/rales Cardiovascular: Regular rate/rhythm, Normal S1 S2 Capillary refill: <2 Seconds Gastrointestinal: Soft and benign, W/out hepatosplenomegaly Musculoskeletal: No clubbing Integumentary: No rashes Neurological: Normal speech, Normal strength at 5/5 x4 extr Lymphatics: No axilla or inguinal lymphadenopathy - Studies Laboratory Data (last 24 hrs) 01/24/24 01/24/24 01/24/24 21:10 21:10 21:10 WBC 12.60 H Hgb 7.8 L Hct 24.9 L Plt Count 208 PT 22.2 H INR 2.02 Sodium 137 Potassium 4.3 BUN 71 H Creatinine 3.39 H Glucose 104 Magnesium 2.5 H Lipase 11 L Assessment and Plan - Plan History of fall CT head and C-spine does not show any acute changes PT eval in a.m. Acute on chronic CHF possibly systolic/diastolic Monitor closely on telemetry Started on aggressive diuresis X-ray findings consistent with CHF Oxygen supplementation Will try to wean down oxygen requirement Continue home medications Titrate as needed Will obtain an echocardiogram Cardiology consult Atrial fibrillation Will monitor under telemetry Rate controlled at this time Continue amiodarone Hypertension Antihypertensives titrated Continue home medications and titrate as needed Diabetes Insulin sliding scale Accu-Chek before every meal and at bedtime Anemia of chronic disease Monitor H&H closely No overt bleeding at this time Acute kidney injury Renal parameters monitor Electrolytes monitor and replace accordingly GI/DVT prophylaxis Advanced directive full code Discharge Plan: Home Plan to discharge in: 48 Hours - Advance Directives Does patient have a Living Will: No Does patient have a Durable POA for Healthcare: No - Code Status/Comfort Care Code Status: Full Code Time Spent Managing Pts Care (In Minutes): 48
[2024-01-24] MEDS ORDERED: ACETAMINOPHEN 650MG/RECT SUPP PR PRN (23:15)
[2024-01-24] MEDS ORDERED: HYDROCODONE/APAP 5/325 MG TAB PO PRN (23:19)
[2024-01-24] MEDS ORDERED: MORPHINE 2 MG/ML SYR IV PRN (23:19)
[2024-01-24] MEDS: ALBUMIN HUMAN 25% 50 ML IV ONE (23:30)
[2024-01-25 00:11] LABS: Albumin 2.4 g/dL (3.4-5.0); Albumin/Globulin Ratio 0.6 (1.1-1.8); Alkaline Phosphatase 107 U/L (45-117); Bilirubin Direct 0.3 mg/dL (0-0.2); Bilirubin Indirect, Calculated 0.3 mg/dL (0.2-0.8); Bilirubin Total 0.6 mg/dL (0.2-1.0); Globulin 4.2 g/dL (2.3-3.5); Protein, Total 6.6 g/dL (6.4-8.2)
[2024-01-25 00:12] LABS: ALT/SGPT < 14 U/L (16-61); AST/SGOT < 10 U/L (15-37)
[2024-01-25] MEDS: ALBUTEROL 2.5 MG/3 ML NEB SOL NEB PRN (03:30)
[2024-01-25] MEDS: IPRATROPIUM BROM 0.5MG/2.5ML NEB PRN (03:30)
[2024-01-25 04:04] LABS: Specific Gravity 1.011 (1.005-1.030); Sqamous Epithelial None Seen /HPF (None Seen); Urine Bacteria <20 /HPF (<20); Urine Bilirubin NEGATIVE (Negative); Urine Blood Negative (Negative); Urine Clarity Turbid (Clear); Urine Color Light-Yellow (Yellow); Urine Culture Reflex Order NOT NEEDED; Urine Glucose NEGATIVE (Negative); Urine Ketones NEGATIVE (Negative); Urine Microscopic Reflex YN ORDER UMIC; Urine Mucus Slight /HPF (None Seen); Urine Nitrite NEGATIVE (Negative); Urine Protein NEGATIVE (Negative); Urine RBC None Seen /HPF (None Seen); Urine Urobilinogen Normal (Normal); Urine WBC <5 /HPF (<5)
[2024-01-25 04:56] LABS: Absolute Basophils 0.1 K/uL (0-0.5); Absolute Eosinophils 0.5 K/uL (0-0.5); Absolute Lymphocytes (CBC) 3.1 K/uL (0.7-4.9); Absolute Monocytes 3.3 K/uL (0.1-1.3); Absolute Neutrophil 7.7 K/uL (1.8-8.0); Basophils % 0.8 % (0-1.3); Eosinophils % 3.3 % (0-4.4); Hematocrit 26.3 % (39.6-49.0); Hemoglobin 7.9 g/dL (13.6-17.9); Lymphocytes % 21.2 % (15.3-44.8); MCH 26.3 pg (27.0-35.0); MCHC 30.2 g/dL (32.0-36.0); MPV 7.4 fL (7.6-11.3); Monocytes % 22.4 % (3.3-12.3); Neutrophils % 52.3 % (41.7-73.7); Platelets 197 thou/uL (152-406); RBC Red Blood Cell Count 3.02 M/uL (4.33-5.43); Red Cell Distribution Width 16.8 % (12.1-15.2)
[2024-01-25 05:24] LABS: Albumin 2.7 g/dL (3.4-5.0); Albumin/Globulin Ratio 0.6 (1.1-1.8); Alkaline Phosphatase 101 U/L (45-117); Anion Gap 7.5 mEq/L (5.0-15.0); BUN Blood Urea Nitrogen 70 mg/dL (7-18); Bicarbonate 24 mEq/L (21-32); Bilirubin Total 0.7 mg/dL (0.2-1.0); Globulin 4.2 g/dL (2.3-3.5); Glomerular Filtration Rate 18 ml/min (=/>90); Glucose Level 91 mg/dL (74-106); Magnesium 2.6 mg/dL (1.6-2.4); Phosphorus 4.7 mg/dL (2.5-4.9); Potassium 4.5 mEq/L (3.5-5.1); Protein, Total 6.9 g/dL (6.4-8.2); Sodium Level 138 mEq/L (136-145)
[2024-01-25 05:30] LABS: ALT/SGPT < 14 U/L (16-61); AST/SGOT < 10 U/L (15-37)
[2024-01-25] MEDS: APIXABAN 2.5 MG TABLET PO SCH (08:28)
[2024-01-25] MEDS: GABAPENTIN 100 MG CAP PO SCH (08:28)
[2024-01-25] MEDS: FUROSEMIDE 40 MG/4 ML VIAL IV SCH (08:28)
[2024-01-25] MEDS: SERTRALINE HCL 50 MG TAB PO SCH (08:28)
[2024-01-25] MEDS: AMIODARONE HCL 200 MG TAB PO SCH (08:28)
[2024-01-25] MEDS ORDERED: ENOXAPARIN 30 MG/0.3 ML SQ SCH (09:00)
[2024-01-25 09:06] LABS: Blood Morphology Comment NOT SEEN (NOT SEEN); Differential Total Cells Count 100; Eosinophils 1 % (0-3); Lymphocytes 27 % (15-42); Monocytes 16 % (0-10); Platelet Estimate ADEQ; Segmented Neutrophils 55 % (40-80)
[2024-01-25] MEDS: FUROSEMIDE 100 MG in NA CHLORIDE 0.9% 90 ML IV SCH ×2 (09:56→18:10)
--- NOTE | 2024-01-25 10:33 | P.CNS ---
Date of Consult: 01/25/24 Chief Complaint: CHF Exacerbation History of Present Illness: Patient with PMH of Heart failure preserved EF, atrial fibrillation, Pacemaker placement presented with repeated mechanical falls, cough, SOB, denies any chest pain, no palpitations, no syncope. Allergies metformin [From Glucophage] Allergy (Verified 10/30/23 05:21) Shortness of breath metoprolol Adverse Reaction (Verified 10/30/23 05:21) Shortness of breath steroids Allergy (Unknown, Uncoded 06/19/20 11:25) Unknown Home medications list reviewed: Yes Home Medications: Amiodarone HCl [Cordarone*] 200 mg PO DAILY 10/19/17 Apixaban [Eliquis *] 2.5 mg PO BID 10/19/17 Sertraline HCl 25 mg PO DAILY 05/27/21 Insulin Lispro MIX 75/25 [Humalog Mix 75/25*] See Protocol SQ ACHS 10/30/23 Levothyroxine Sodium [Levo-T] 25 mcg PO [id number] 10/30/23 Liothyronine Sodium [Cytomel] 5 mcg PO [id number] 10/30/23 Gabapentin 100 mg PO TID 12/26/23 Spironolactone 25 mg PO DAILY 12/26/23 glipiZIDE [Glipizide] 2.5 mg PO BID 30 Days #60 tab 12/29/23 - Past Medical/Surgical History Diabetic: Yes -: History CVA -: Atrial fibrillation now with pacemaker -: DM -: chronic b/l LE cellulitis -: PVD -: GERD -: Moderate pulmonary hypertension -: CHF, diastolic dysfunction -: hypothyroidism -: dementia -: R. total knee replacement -: kristian. cataract sx -: Right thigh staph inf. -: L. big toe amputated -: Back sx -: L big toe partial amputation Psychosocial/ Personal History: The patient is . - Family History Mother Medical History: Heart disease Father Medical History: Heart disease Brother Medical History: Heart disease, Hypertension, Diabetes, Cancer - Social History Smoking Status: Unknown if ever smoked Alcohol use: No CD- Drugs: No Caffeine use: Yes Place of Residence: Home Review of Systems 10-point ROS is otherwise unremarkable Physical Examination Temp Pulse Resp BP Pulse Ox 97.2 F 66 17 111/41 L 97 01/25/24 08:00 01/25/24 08:28 01/25/24 08:00 01/25/24 08:28 01/25/24 08:00 General: Alert, In no apparent distress HEENT: Atraumatic, PERRLA, Mucous membr. moist/pink, EOMI, Sclerae nonicteric Neck: Supple, 2+ carotid pulse no bruit, No LAD, Without JVD or thyroid abnormality Respiratory: Clear to auscultation bilaterally, Normal air movement Cardiovascular: Regular rate/rhythm, Normal S1 S2 Gastrointestinal: Normal bowel sounds, No tenderness Musculoskeletal: No tenderness Integumentary: No rashes Neurological: Normal gait, Normal speech, Normal tone, Normal affect Lymphatics: No axilla or inguinal lymphadenopathy Laboratory Data (last 24 hrs) 01/24/24 01/24/24 01/24/24 23:10 21:10 21:10 WBC 12.60 H Hgb 7.8 L Hct 24.9 L Plt Count 208 PT 22.2 H INR 2.02 Sodium Potassium BUN Creatinine Glucose Magnesium Total Bilirubin 0.6 AST < 10 L ALT < 14 L Alkaline Phosphatase 107 Lipase 01/24/24 21:10 WBC Hgb Hct Plt Count PT INR Sodium 137 Potassium 4.3 BUN 71 H Creatinine 3.39 H Glucose 104 Magnesium 2.5 H Total Bilirubin AST ALT Alkaline Phosphatase Lipase 11 L - Problems (1) Acute on chronic diastolic CHF (congestive heart failure) Current Visit: No Status: Acute Plan: Patient with signs of volume overload, agree with Lasix drip monitor input and output closely would get nephrology team involved as patient is having poor urine output. (2) Anemia Current Visit: No Status: Acute Plan: primary team to work up for drop in Hgb (3) Leukocytosis Onset Date: 04/13/14 Current Visit: No Status: Acute Plan: primary team to work up for increased WBC. (4) A-fib Onset Date: 08/28/15 Current Visit: No Status: Chronic Plan: Patient is currently paced. continue amiodarone 200 mg daily continue Eliquis 2.5 mg po BID Qualifiers: (5) Renal insufficiency Onset Date: 01/07/17 Current Visit: No Status: Chronic
[2024-01-25 10:54] LABS: SARS-CoV-2 Antigen CONTROL BLUE LINE VIS/BG OK; SARS-CoV-2 Antigen Rapid Res Negative (Negative)
--- NOTE | 2024-01-25 12:54 | P.PN ---
Subjective Date of Service: 01/25/24 Chief Complaint: CHF Exacerbation Patient complaining of dry cough, CVA edema of both lower extremity, chest congestion, did not get the influenza vaccine Review of Systems Other: Consitutional; fever(-), chills (-), rigor(-), night sweat(-), unintentional weight loss(-) HEENT; diplopia (-), rhinorrhea (-), epistaxis (-), otorrhea (-), otalgia (-) Respiratory; shortness of breath (+), wheezing (-), cough (+), sputum (-), pleuritic chest pain (-) Cardiovascular; chest pain (-), peripheral edema (+), paroxysmal nocturnal dyspnea (-), orthopnea (-) Gastrointestinal; nausea (-), vomiting (-), abdominal pain (-), diarrhea (-), constipation (-), melena (-), hematochezia (-) Urinary; urinary frequency (-), dysuria (-), urgency (-), flank pain (-), gross hematuria (-), incontinence (-) Skin; rash (-), 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 General: Chronic ill- looking , in no apparent distress,. HEENT: Normocephalic, atraumatic, nonicteric sclera, nonanemic conjunctive. Neck: Supple, without JVD or goiter or thyroid mass. Respiratory: Normal breathing effort, coarse breath sound bilaterally with crackle up to correction from lung bases. Cardiovascular: Regular rate and rhythm, S1, S2 normal, no murmur no gallop. Gastrointestinal: Normal bowel sounds, nondistended, nontender, No ascites, , No masses, no hepatosplenomegaly. Extremities l: No clubbing, 3+/3+ peripheral edema, full range of motion, no deformity, no muscle atrophy. Integumentary: No rashes, petechia, suspected lesions. Lymphatics: No axilla or cervical lymphadenopathy. Neurology; alert awake oriented x3, no focal neurologic deficit, normal affection . mood and behavior. - Studies Laboratory Data (last 24 hrs) 01/24/24 01/24/24 01/24/24 23:10 21:10 21:10 WBC 12.60 H Hgb 7.8 L Hct 24.9 L Plt Count 208 PT 22.2 H INR 2.02 Sodium Potassium BUN Creatinine Glucose Magnesium Total Bilirubin 0.6 AST < 10 L ALT < 14 L Alkaline Phosphatase 107 Lipase 01/24/24 21:10 WBC Hgb Hct Plt Count PT INR Sodium 137 Potassium 4.3 BUN 71 H Creatinine 3.39 H Glucose 104 Magnesium 2.5 H Total Bilirubin AST ALT Alkaline Phosphatase Lipase 11 L Assessment And Plan - Plan This is a 78 years old gentleman with a past medical history notable for diastolic heart failure, type 2 diabetes, atrial fibrillation on apixaban who presented to emergency room for shortness of progressive shortness of breath and cough for 1 week after the fall #1 acute decompensated heart failure with preserved ejection fraction Transthoracic echocardiogram in October 2023 result reviewed, normal ejection fraction, diastolic dysfunction, no valvular heart disease proBNP over 3000 #2 DARRELL on CKD BUN/creatinine 71/3.239 #3 hypervolemia with peripheral edema, pulmonary edema and bilateral pleural effusion CT of abdomen and pelvis and chest personally reviewed, patient have early sign of cardiac cirrhosis No response to bolus of IV furosemide 40 mg, I will initiate furosemide infusion at 10 mg/h, check input and output #4 influenza A and B pneumonia will start Tamiflu with renal adjustment, test positive for influenza A and B antigen #5 paroxysmal atrial fibrillation on apixaban Heart rate at target on amiodarone, will continue current dose and apixaban #6 anemia of chronic disease Hemoglobin 7.8 stable, no clinical bleeding #7 history of type 2 diabetes Random blood sugar 144 without any hypoglycemic agents, monitor blood sugar by fasting blood sugar DVT prophylaxis apixaban
[2024-01-25] MEDS: OSELTAMIVIR 30 MG CAP PO SCH (13:09)
[2024-01-25] MEDS ORDERED: ALBUTEROL 2.5 MG/3 ML NEB SOL NEB PRN (17:13)
[2024-01-25] MEDS: JUVEN PACKET PO SCH (20:35)
[2024-01-25] MEDS ORDERED: GLUCAGON 1 MG/VIAL IM PRN (20:51)
[2024-01-25] MEDS ORDERED: D10W 125 ML IV PRN (20:51)
[2024-01-25] MEDS: INSULIN REGULAR (HUMAN) 100 UNIT/ML SQ SCH (21:29)
[2024-01-26] MEDS: LIOTHYRONINE SOD 5 MCG TAB PO SCH (04:58)
[2024-01-26] MEDS: LEVOTHYROXINE SOD 0.025 MG TAB PO SCH (04:58)
[2024-01-26] MEDS: POLYETHYL GLY 3350 17 GM/DOSE PO SCH (08:35)
[2024-01-26] MEDS ORDERED: BISACODYL 10 MG RECTAL SUPP PR PRN (09:06)
--- NOTE | 2024-01-26 10:45 | P.PN ---
Subjective Date of Service: 01/26/24 Chief Complaint: CHF Exacerbation Subjective: Improving Patient states that he is starting to feel better, less shortness of breath, his urine output 3 L over the past 24-hour, denied any worsening weakness, complaining of intermittent productive cough. Review of Systems Other: Consitutional; fever(-), chills (-), rigor(-), night sweat(-), unintentional weight loss(-) HEENT; diplopia (-), rhinorrhea (-), epistaxis (-), otorrhea (-), otalgia (-) Respiratory; shortness of breath (+), wheezing (-), cough (+), sputum (+), pleuritic chest pain (-) Cardiovascular; chest pain (-), peripheral edema (+), paroxysmal nocturnal dyspnea (-), orthopnea (+) Gastrointestinal; nausea (-), vomiting (-), abdominal pain (-), diarrhea (-), constipation (-), melena (-), hematochezia (-) Urinary; urinary frequency (-), dysuria (-), urgency (-), flank pain (-), gross hematuria (-), incontinence (-) Skin; rash (-), 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 General: Chronic ill-lookin g , in no apparent distress,. HEENT: Normocephalic, atraumatic, nonicteric sclera, nonanemic conjunctive. Neck: Supple, without JVD or goiter or thyroid mass. Respiratory: Normal breathing effort, coarse breath sound bilaterally with crackle up to one third from lung bases. Cardiovascular: Regular rate and rhythm, S1, S2 normal, no murmur no gallop. Gastrointestinal: Normal bowel sounds, nondistended, nontender, No ascites, , No masses, no hepatosplenomegaly. Extremities l: No clubbing,2+/2+ peripheral edema, full range of motion, no deformity, no muscle atrophy. Integumentary: No rashes, petechia, suspected lesions. Lymphatics: No axilla or cervical lymphadenopathy. Neurology; alert awake oriented x3, no focal neurologic deficit, normal affection . mood and behavior. Assessment And Plan - Plan This is a 78 years old gentleman with a past medical history notable for diastolic heart failure, type 2 diabetes, atrial fibrillation on apixaban who presented to emergency room for shortness of progressive shortness of breath and cough for 1 week after the fall #1 acute decompensated heart failure with preserved ejection fraction Transthoracic echocardiogram in October 2023 result reviewed, normal ejection fraction, diastolic dysfunction, no valvular heart disease proBNP over 3000 #2 DARRELL on CKD BUN/creatinine 71/3.239 #3 hypervolemia with peripheral edema, pulmonary edema and bilateral pleural effusion CT of abdomen and pelvis and chest personally reviewed, patient has early sign of cardiac cirrhosis Good urine output on furosemide infusion, 3.0 L per 24-hour, I will continue 10 mg/h, monitor urine output, I will check a BMP tomorrow morning #4 influenza A and B pneumonia on Tamiflu with renal adjustment, antitussive, albuterol nebulizer test positive for influenza A and B antigen #5 paroxysmal atrial fibrillation on apixaban Heart rate at target on amiodarone, will continue current dose and apixaban #6 anemia of chronic disease Hemoglobin 7.8 stable, no clinical bleeding #7 type 2 diabetes Random blood sugar over 200 noted, hemoglobin A1c 6.5 in 2021, I will obtain new hemoglobin A1c, I will change to low-dose sliding scale DVT prophylaxis apixaban Disposition plan to discharge home in a few days depending on clinical response to the medical treatment
[2024-01-26] MEDS: INSULIN REGULAR (HUMAN) 100 UNIT/ML SQ SCH (11:30)
[2024-01-27 05:46] LABS: Anion Gap 8.9 mEq/L (5.0-15.0); Potassium 3.9 mEq/L (3.5-5.1)
[2024-01-27] MEDS: GUAIFENESIN/DM 5 ML UCUP PO SCH (10:00)
--- NOTE | 2024-01-27 10:47 | P.PN ---
Subjective Date of Service: 01/27/24 Chief Complaint: CHF Exacerbation Subjective: No new changes Patient is complaining of intractable cough, which interfered with his sleep, peripheral edema continued to go down, shortness of breath improved. Review of Systems Other: Consitutional; fever(-), chills (-), rigor(-), night sweat(-), unintentional weight loss(-), malaise (-) HEENT; diplopia (-), rhinorrhea (-), epistaxis (-), otorrhea (-), otalgia (-) Respiratory; shortness of breath (+), wheezing (-), cough (+), sputum (+), pleuritic chest pain (-) Cardiovascular; chest pain (-), peripheral edema (-), paroxysmal nocturnal dyspnea (-), orthopnea (-) Gastrointestinal; nausea (-), vomiting (-), abdominal pain (-), diarrhea (-), constipation (-), melena (-), hematochezia (-) Genitourinary; urinary frequency (-), dysuria (-), urgency (-), flank pain (-), gross hematuria (-), incontinence (-) Skin; rash (-), 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 General: Chronic ill- looking , in no apparent distress,. HEENT: Normocephalic, atraumatic, nonicteric sclera, nonanemic conjunctive. Neck: Supple, without JVD or goiter or thyroid mass. Respiratory: Normal breathing effort, coarse breath sound bilaterally with crackle up to one third from lung bases. Cardiovascular: Regular rate and rhythm, S1, S2 normal, no murmur no gallop. Gastrointestinal: Normal bowel sounds, nondistended, nontender, No ascites, , No masses, no hepatosplenomegaly. Extremities l: No clubbing,2+/2+ peripheral edema, full range of motion, no deformity, no muscle atrophy. Integumentary: No rashes, petechia, suspected lesions. Lymphatics: No axilla or cervical lymphadenopathy. Neurology; alert awake oriented x3, no focal neurologic deficit, normal affection . mood and behavior. Assessment And Plan - Plan This is a 78 years old gentleman with a past medical history notable for diastolic heart failure, type 2 diabetes, atrial fibrillation on apixaban who presented to emergency room for shortness of progressive shortness of breath and cough for 1 week after the fall #1 acute decompensated heart failure with preserved ejection fraction Transthoracic echocardiogram in October 2023 result reviewed, normal ejection fraction, diastolic dysfunction, no valvular heart disease proBNP over 3000 #2 DARRELL on CKD Stable BUN/creatinine around 08/10 #3 severe hypervolemia with peripheral edema, severe anasarca and bilateral pleural effusion CT of abdomen and pelvis and chest personally reviewed, patient has early sign of cardiac cirrhosis Good urine output 1.3 L over the past 24 hours on furosemide infusion, , I will continue 10 mg/h, monitor urine output, unable to start spironolactone due to CKD #4 influenza A and B pneumonia Keep on Tamiflu with renal adjustment, antitussive, albuterol nebulizer, I will add scheduled antitussive test positive for influenza A and B antigen #5 paroxysmal atrial fibrillation on apixaban Heart rate at target on amiodarone, will continue it at current dose and apixaban #6 anemia of chronic disease Hemoglobin 7.8 stable, no clinical bleeding #7 type 2 diabetes Random blood sugar over 200 noted, hemoglobin A1c 6.5 in 2021, new hemoglobin A1c pending, I will keep him on low-dose sliding scale DVT prophylaxis apixaban Disposition plan to discharge home in a few days depending on clinical response to the medical treatment
[2024-01-27] MEDS: POTASSIUM CL SA 10 MEQ TAB PO ONE (11:02)
--- NOTE | 2024-01-27 11:35 | EKG ---
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
[2024-01-27] MEDS: SOD FERRIC GLUC COMPLX/SUCROSE 250 MG in NA CHLORIDE 0.9% 250 ML IV SCH (15:50)
[2024-01-27] MEDS: BENZONATATE 100 MG CAP PO SCH (15:51)
[2024-01-28 05:19] LABS: Absolute Basophils 0.1 K/uL (0-0.5); Absolute Eosinophils 0.3 K/uL (0-0.5); Absolute Lymphocytes (CBC) 1.4 K/uL (0.7-4.9); Absolute Monocytes 1.9 K/uL (0.1-1.3); Absolute Neutrophil 6.5 K/uL (1.8-8.0); Basophils % 0.7 % (0-1.3); Eosinophils % 2.6 % (0-4.4); Lymphocytes % 13.4 % (15.3-44.8); MCH 26.9 pg (27.0-35.0); MCHC 31.8 g/dL (32.0-36.0); MCV 84.6 fL (80-100); MPV 7.1 fL (7.6-11.3); Neutrophils % 64.3 % (41.7-73.7); Nucleated Red Blood Cells % 0.1 % (0-0); Percent Reticulocyte Count 1.38 % (0.4-2.05); Platelets 196 thou/uL (152-406); RBC Red Blood Cell Count 2.96 M/uL (4.33-5.43); Red Cell Distribution Width 16.9 % (12.1-15.2)
[2024-01-28 05:34] LABS: Anion Gap 7.7 mEq/L (5.0-15.0); Potassium 3.7 mEq/L (3.5-5.1)
[2024-01-28] MEDS ORDERED: SOD FERRIC GLUC COMPLX/SUCROSE 250 MG in NA CHLORIDE 0.9% 250 ML IV SCH (09:00)
[2024-01-28] MEDS: POTASSIUM CL SA 10 MEQ TAB PO ONE (09:46)
--- NOTE | 2024-01-28 10:46 | P.PN ---
Subjective Date of Service: 01/28/24 Chief Complaint: CHF Exacerbation Subjective: Improving Patient reported his cough has improved significantly with oral antitussive, able to sleep, anxious to go home. Still complaining of small amount of fresh rectal bleeding, no history of hemorrhoid, no colonoscopy has been done. Review of Systems Other: Consitutional; fever(-), chills (-), rigor(-), night sweat(-), unintentional weight loss(-), malaise (-) HEENT; diplopia (-), rhinorrhea (-), epistaxis (-), otorrhea (-), otalgia (-) Respiratory; shortness of breath (+), wheezing (-), cough (+), sputum (-), pleuritic chest pain (-) Cardiovascular; chest pain (-), peripheral edema (-), paroxysmal nocturnal dyspnea (-), orthopnea (-) Gastrointestinal; nausea (-), vomiting (-), abdominal pain (-), diarrhea (-), constipation (-), melena (-), hematochezia (+) Genitourinary; urinary frequency (-), dysuria (-), urgency (-), flank pain (-), gross hematuria (-), incontinence (-) Skin; rash (-), 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 General: Chronic ill- looking , in no apparent distress,. HEENT: Normocephalic, atraumatic, nonicteric sclera, nonanemic conjunctive. Neck: Supple, without JVD or goiter or thyroid mass. Respiratory: Normal breathing effort, coarse breath sound bilaterally with crackle up to one third from lung bases. Cardiovascular: Regular rate and rhythm, S1, S2 normal, no murmur no gallop. Gastrointestinal: Normal bowel sounds, nondistended, nontender, No ascites, , No masses, no hepatosplenomegaly. Extremities l: No clubbing, 2+/2+ peripheral edema, full range of motion, no deformity, no muscle atrophy. Integumentary: No rashes, petechia, suspected lesions. Lymphatics: No axilla or cervical lymphadenopathy. Neurology; alert awake oriented x3, no focal neurologic deficit, normal affection . mood and behavior. Assessment And Plan - Plan This is a 78 years old gentleman with a past medical history notable for diast olic heart failure, type 2 diabetes, atrial fibrillation on apixaban who presented to emergency room for shortness of progressive shortness of breath and cough for 1 week after the fall #1 acute decompensated heart failure with preserved ejection fraction Transthoracic echocardiogram in October 2023 result reviewed, normal ejection fraction, diastolic dysfunction, no valvular heart disease proBNP over 3000 #2 DARRELL on CKD Stable BUN/creatinine around 70/3 #3 severe hypervolemia with peripheral edema, severe anasarca and bilateral pleural effusion related to #1 and #2 Still significant anasarca and pleural effusion CT of abdomen and pelvis and chest personally reviewed, patient has early sign of cardiac cirrhosis Good urine output 500 mL question over the past 24 hours on furosemide infusion, , I will continue 10 mg/h, monitor urine output, unable to start spironolactone due to CKD #4 influenza A and B pneumonia Keep on Tamiflu with renal adjustment, antitussive, albuterol nebulizer, I will add scheduled antitussive test positive for influenza A and B antigen #5 paroxysmal atrial fibrillation on apixaban Heart rate at target on amiodarone, will continue it at current dose #6 iron deficiency anemia Hemoglobin 8 stable, iron study 1 months ago reviewed, IV iron therapy initiated #7 inactive lower GI bleeding Likely hemorrhoidal, laxatives, I will hold apixaban #7 type 2 diabetes Good glycemic control on low-dose insulin sliding scale, hemoglobin A1c 6.5 in 2021, new hemoglobin A1c pending, DVT prophylaxis sequential compression device Disposition plan to discharge home in a few days depending on clinical response to the medical treatment
--- NOTE | 2024-01-29 11:42 | P.PN ---
Subjective Date of Service: 01/29/24 Chief Complaint: CHF Exacerbation Subjective: Improving He states that he is feeling better but still have cough, shortness of breath on minimal exertion and wheezing. Denied any further rectal bleeding, no chest pain or dizziness Review of Systems Other: Consitutional; fever(-), chills (-), rigor(-), night sweat(-), unintentional weight loss(-), malaise (-) HEENT; diplopia (-), rhinorrhea (-), epistaxis (-), otorrhea (-), otalgia (-) Respiratory; shortness of breath (+), wheezing (-), cough (+), sputum (+), pleuritic chest pain (-) Cardiovascular; chest pain (-), peripheral edema (-), paroxysmal nocturnal dyspnea (-), orthopnea (-) Gastrointestinal; nausea (-), vomiting (-), abdominal pain (-), diarrhea (-), constipation (-), melena (-), hematochezia (-) Genitourinary; urinary frequency (-), dysuria (-), urgency (-), flank pain (-), gross hematuria (-), incontinence (-) Skin; rash (-), 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 General: Chronic ill- looking , in no apparent distress,. HEENT: Normocephalic, atraumatic, nonicteric sclera, nonanemic conjunctive. Neck: Supple, without JVD or goiter or thyroid mass. Respiratory: Normal breathing effort, coarse breath sound bilaterally with less crackle. Cardiovascular: Regular rate and rhythm, S1, S2 normal, no murmur no gallop. Gastrointestinal: Normal bowel sounds, nondistended, nontender, No ascites, , No masses, no hepatosplenomegaly. Extremities l: No clubbing, 2+/2+ peripheral edema, full range of motion, no deformity, no muscle atrophy. Integumentary: No rashes, petechia, suspected lesions. Lymphatics: No axilla or cervical lymphadenopathy. Neurology; alert awake oriented x3, no focal neurologic deficit, normal affection . mood and behavior. Assessment And Plan - Plan This is a 78 years old gentleman with a past medical history notable for diastolic heart failure, type 2 diabetes, atrial fibrillation on apixaban who presented to emergency room for shortness of progressive shortness of breath and cough for 1 week after the fall #1 acute decompensated heart failure with preserved ejection fraction Transthoracic echocardiogram in October 2023 result reviewed, normal ejection fraction, diastolic dysfunction, no valvular heart disease proBNP over 3000 #2 DARRELL on CKD Stable BUN/creatinine around 70/3 #3 severe hypervolemia with peripheral edema, severe anasarca and bilateral pleural effusion related to #1 and #[address] of abdomen and pelvis and chest personally reviewed, patient has early sign of cardiac cirrhosis Good urine output 2.1 L over the past 24 hours on furosemide infusion, , I will continue 10 mg/h, monitor urine output, unable to start spironolactone due to CKD, I will order follow-up CBC, BMP, N-terminal proBNP and follow-up chest x-ray tomorrow morning #4 influenza A and B pneumonia Will finish 5-day of Tamiflu with renal adjustment, antitussive, albuterol nebulizer, scheduled antitussive test positive for influenza A and B antigen upon admission #5 paroxysmal atrial fibrillation on apixaban Heart rate at target on amiodarone, will continue it at current dose #6 iron deficiency anemia Hemoglobin 8 stable, iron study 1 months ago reviewed, continue IV iron #7 inactive lower GI bleeding Likely hemorrhoidal, laxatives, no further bleeding after apixaban on hold, pat ient need outpatient colonoscopy #7 type 2 diabetes Good glycemic control on low-dose insulin sliding scale, hemoglobin A1c 6.5 in 2021, new hemoglobin A1c pending, DVT prophylaxis sequential compression device Disposition plan to discharge home in a few days depending on clinical response to the medical treatment
[2024-01-29] MEDS: POTASSIUM CL SA 10 MEQ TAB PO ONE (20:06)
--- NOTE | 2024-01-30 07:03 | RAD REPORT ---
EXAMINATION: ONE VIEW CHEST XR CLINICAL INDICATION: follow-up on pulmonary edema and pleural effusion TECHNIQUE: Frontal chest projection is submitted. Examination is limited by patient positioning and t echnique. COMPARISON: 01/24/2024 FINDINGS: No real changes occurred since 01/24/2024 study in the mild bilateral pulmonary opacities. Moderate b ilateral pleural effusions, unchanged. The heart is moderately enlarged. Multilead pacer device is present. IMPRESSION: Stable chest since 01/24/2024 study.
[2024-01-30 07:33] LABS: Hematocrit 25.8 % (39.6-49.0); MCH 26.4 pg (27.0-35.0); MCHC 30.9 g/dL (32.0-36.0); MCV 85.5 fL (80-100); MPV 7.1 fL (7.6-11.3); Platelets 196 thou/uL (152-406); RBC Red Blood Cell Count 3.02 M/uL (4.33-5.43); Red Cell Distribution Width 16.5 % (12.1-15.2)
[2024-01-30 07:50] LABS: Anion Gap 8.6 mEq/L (5.0-15.0); Potassium 3.6 mEq/L (3.5-5.1)
[2024-01-30] MEDS: INSULIN GLARGINE 100 UNIT/ML SQ SCH (09:08)
[2024-01-30] MEDS: FUROSEMIDE 100 MG in NA CHLORIDE 0.9% 90 ML IV SCH ×2 (10:50→11:44)
--- NOTE | 2024-01-30 10:53 | P.PN ---
Subjective Date of Service: 01/30/24 Chief Complaint: CHF Exacerbation Subjective: No new changes He states that he is feeling better, less cough, no chest pain or shortness of breath at rest but get out of breath with minimal exertion. Denied any further rectal bleeding. Review of Systems Other: Consitutional; fever(-), chills (-), rigor(-), night sweat(-), unintentional weight loss(-), malaise (-) HEENT; diplopia (-), rhinorrhea (-), epistaxis (-), otorrhea (-), otalgia (-) Respiratory; shortness of breath (+), wheezing (-), cough (+), sputum (-), pleuritic chest pain (-) Cardiovascular; chest pain (-), peripheral edema (+), paroxysmal nocturnal dyspnea (-), orthopnea (-) Gastrointestinal; nausea (-), vomiting (-), abdominal pain (-), diarrhea (-), constipation (-), melena (-), hematochezia (-) Genitourinary; urinary frequency (-), dysuria (-), urgency (-), flank pain (-), gross hematuria (-), incontinence (-) Skin; rash (-), 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 General: Chronic ill-look ing , in no apparent distress,. HEENT: Normocephalic, atraumatic, nonicteric sclera, nonanemic conjunctive. Neck: Supple, without JVD or goiter or thyroid mass. Respiratory: Normal breathing effort, coarse breath sound bilaterally with crackle up to residential from lung bases. Cardiovascular: Regular rate and rhythm, S1, S2 normal, no murmur no gallop. Gastrointestinal: Normal bowel sounds, nondistended, nontender, No ascites, , No masses, no hepatosplenomegaly. Extremities l: No clubbing, 2+/2+ peripheral edema, full range of motion, no deformity, no muscle atrophy. Integumentary: No rashes, petechia, suspected lesions. Lymphatics: No axilla or cervical lymphadenopathy. Neurology; alert awake oriented x3, no focal neurologic deficit, normal affection . mood and behavior. Assessment And Plan - Plan This is a 78 years old gentleman with a past medical history notable for diastolic heart failure, type 2 diabetes, atrial fibrillation on apixaban who presented to emergency room for shortness of progressive shortness of breath and cough for 1 week after the fall #1 acute decompensated heart failure with preserved ejection fraction Transthoracic echocardiogram in October 2023 result reviewed, normal ejection fraction, diastolic dysfunction, no valvular heart disease proBNP over 3000, repeat BNP 4000 #2 DARRELL on CKD Stable BUN/creatinine around 70/3, normokalemia, bicarb 27 #3 severe hypervolemia with peripheral edema, severe anasarca and bilateral pleural effusion related to #1 and #2 Slowly resolving, follow-up chest x-ray no significant improvement CT of abdomen and pelvis and chest personally reviewed, patient has early sign of cardiac cirrhosis Good urine output 2.4 L over the past 24 hours on furosemide infusion, , I will increase rate to 15 mg/h today, unable to start spironolactone due to CKD, #4 influenza A and B pneumonia Will finish 5-day of Tamiflu with renal adjustment, antitussive, albuterol nebulizer, scheduled antitussive test positive for influenza A and B antigen upon admission #5 paroxysmal atrial fibrillation on apixaban Heart rate at target on amiodarone, will continue it at current dose #6 iron deficiency anemia Hemoglobin stable at 9, iron study 1 months ago reviewed, continue IV iron #7 inactive lower GI bleeding Likely hemorrhoidal, laxatives, no further bleeding after apixaban on hold, patient need outpatient colonoscopy, I will resume apixaban today #7 type 2 diabetes Glycemia is worsening, I will add a 15 unit Lantus, 0.15 unit/kg and low-dose corrective insulin hemoglobin A1c 6.5 in 2021, new hemoglobin A1c pending, DVT prophylaxis back on apixaban Disposition plan to discharge home in a few days depending on clinical response to the medical treatment
[2024-01-30] MEDS ORDERED: FUROSEMIDE 100 MG in NA CHLORIDE 0.9% 90 ML IV SCH (12:00)
[2024-01-30] MEDS: APIXABAN 2.5 MG TABLET PO SCH (21:06)
[2024-01-31 06:49] LABS: Anion Gap 7.3 mEq/L (5.0-15.0); Potassium 3.3 mEq/L (3.5-5.1)
[2024-01-31 08:13] LABS: Absolute Basophils 0.1 K/uL (0-0.5); Absolute Eosinophils 0.4 K/uL (0-0.5); Absolute Lymphocytes (CBC) 1.9 K/uL (0.7-4.9); Absolute Monocytes 2.6 K/uL (0.1-1.3); Absolute Neutrophil 9.7 K/uL (1.8-8.0); Basophils % 0.4 % (0-1.3); Eosinophils % 2.7 % (0-4.4); Hematocrit 27.2 % (39.6-49.0); Hemoglobin 8.5 g/dL (13.6-17.9); Lymphocytes % 12.8 % (15.3-44.8); MCH 26.5 pg (27.0-35.0); MCHC 31.1 g/dL (32.0-36.0); MCV 85.2 fL (80-100); MPV 7.1 fL (7.6-11.3); Neutrophils % 66.1 % (41.7-73.7); Platelets 213 thou/uL (152-406); RBC Red Blood Cell Count 3.19 M/uL (4.33-5.43); Red Cell Distribution Width 16.8 % (12.1-15.2)
[2024-01-31 08:19] LABS: Albumin 2.5 g/dL (3.4-5.0); Anion Gap 7.3 mEq/L (5.0-15.0); Phosphorus 3.1 mg/dL (2.5-4.9); Potassium 3.3 mEq/L (3.5-5.1)
[2024-01-31] MEDS: POTASSIUM 25 MEQ EFFERV TAB PO ONE (08:58)
[2024-01-31] MEDS ORDERED: POTASSIUM CL SA 10 MEQ TAB PO ONE (09:00)
[2024-01-31 09:16] LABS: Blood Morphology Comment NOT SEEN (NOT SEEN); Platelet Estimate ADEQ; Platelets Clumped FEW; White Blood Cell Scan OK (OK)
--- NOTE | 2024-01-31 10:10 | P.PN ---
Subjective Date of Service: 02/01/24 Chief Complaint: CHF Exacerbation Out of bed to chair today, shortness of breath with exertion, reports lower extremity edema, family at bedside <Tamara Barbour - Last Filed: 02/01/24 13:48> Date of Service: 01/31/24 <Leigh Ann Morris - Last Filed: 02/08/24 05:25> Review of Systems 10-point ROS is otherwise unremarkable General: As per HPI <Tamara Barbour - Last Filed: 02/01/24 13:48> Physical Examination - Vital Signs Temperature: 97.7 F Blood Pressure: 105/50 Pulse: 72 Respirations: 16 Pulse Ox (%): 95 - Physical Exam General: Alert, In no apparent distress, Oriented x3 HEENT: Atraumatic, Normocephalic Neck: Supple Respiratory: Normal air movement, Crackles/rales Capillary refill: <2 Seconds Gastrointestinal: Normal bowel sounds, Other (Mild abdominal distention from ascites) Musculoskeletal: Other (Generalized weakness) Integumentary: Other (Bilateral lower extremity edema) Neurological: Normal speech, Normal strength at 5/5 x4 extr, Sensation intact, Cranial nerves 3-12 intact Other Physical/Emotional Findings: . <Tamara Barbour - Last Filed: 02/01/24 13:48> Assessment And Plan - Current Problems (Diagnosis) (1) Acute on chronic diastolic CHF (congestive heart failure) Status: Acute (2) Anasarca Status: Acute (3) Pulmonary edema Status: Acute (4) Acute kidney injury superimposed on CKD Status: Acute (5) Viral pneumonia Status: Acute (6) History of GI bleed Status: Acute (7) Atrial fibrillation with rapid ventricular response Onset Date: 11/29/17 Status: Chronic - Plan Assessment plan acute decompensated heart failure with preserved ejection fraction Cardiology following Transthoracic echocardiogram in October 2023 result reviewed, normal ejection fraction, diastolic dysfunction, no valvular heart disease proBNP over 3000, repeat BNP 4000 Daily weight, I&O severe anasarca bilateral pleural effusion Hypoalbuminemia CT of abdomen and pelvis and chest personally reviewed, patient has early sign of cardiac cirrhosis Albumin/furosemide infusion, unable to start spironolactone due to CKD, DARRELL on CKD secondary to prerenal CHF Hypokalemia improved Trend renal function viral pneumonia, nfluenza A and B, Leukocytosis Will finish 5-day of Tamiflu with renal adjustment, antitussive, albuterol nebulizer, scheduled antitussive test positive for influenza A and B antigen upon admission paroxysmal atrial fibrillation Chronic anticoagulantion on apixaban Heart rate at target on amiodarone, w iron deficiency anemia Hemoglobin stable Trend H&H IV iron infusion while inpatient History of GI lower GI bleeding Likely hemorrhoidal, laxatives, no further bleeding after apixaban on hold, need outpatient colonoscopy, I will resume apixaban today type 2 diabetes Glycemia is worsening, I will add a 15 unit Lantus, 0.15 unit/kg and low-dose corrective insulin hemoglobin A1c 6.5 in 2021, new hemoglobin A1c pending, DVT prophylaxis back on apixaban Disposition plan to discharge home in a few days depending hospital course Discharge Plan: Home - Code Status/Comfort Care Code Status: Full Code Critical Care: No Time Spent Managing PTS Care (In Minutes): 35 <Tamara Barbour - Last Filed: 02/01/24 13:48> Date of Service: 01/31/24 Chart has been reviewed. Events of the last 24 hours have been noted. Case discussed with LILLIAN. I performed a substantial part of the MDM during this patient's care today. I personally made or approved the documented management plan and acknowledge its risk of complications. I agree with the findings and documentation provided in the LILLIAN's notes <Leigh Ann Morris - Last Filed: 02/08/24 05:25>
[2024-02-01 06:30] LABS: Absolute Basophils 0.1 K/uL (0-0.5); Absolute Eosinophils 0.4 K/uL (0-0.5); Absolute Lymphocytes (CBC) 1.9 K/uL (0.7-4.9); Absolute Monocytes 2.3 K/uL (0.1-1.3); Absolute Neutrophil 9.8 K/uL (1.8-8.0); Basophils % 0.8 % (0-1.3); Eosinophils % 2.7 % (0-4.4); Hematocrit 26.2 % (39.6-49.0); Hemoglobin 8.2 g/dL (13.6-17.9); MCHC 31.4 g/dL (32.0-36.0); MCV 85.9 fL (80-100); MPV 7.1 fL (7.6-11.3); Monocytes % 15.8 % (3.3-12.3); Neutrophils % 67.7 % (41.7-73.7); Platelets 226 thou/uL (152-406); RBC Red Blood Cell Count 3.05 M/uL (4.33-5.43); Red Cell Distribution Width 16.9 % (12.1-15.2)
[2024-02-01 06:52] LABS: Albumin 2.4 g/dL (3.4-5.0); Anion Gap 4.7 mEq/L (5.0-15.0); Phosphorus 2.8 mg/dL (2.5-4.9); Potassium 3.7 mEq/L (3.5-5.1)
[2024-02-01] MEDS ORDERED: ALBUMIN HUMAN 25% 12.5 GM, FUROSEMIDE 100 MG in NA CHLORIDE 0.9% 40 ML IV SCH (09:00)
[2024-02-01] MEDS: POTASSIUM 25 MEQ EFFERV TAB PO ONE (09:06)
[2024-02-01] MEDS: ALBUMIN HUMAN 25% 12.5 GM, FUROSEMIDE 100 MG in NA CHLORIDE 0.9% 40 ML IV SCH (09:07)
[2024-02-01] MEDS ORDERED: ENSURE HIGH PROTEIN 237 ML CAN PO PRN (10:06)
--- NOTE | 2024-02-01 13:49 | P.PN ---
Date of Service: 02/01/24 Subjective Date of Service: 02/01/24 Chief Complaint: CHF Exacerbation ] reports lower extremity edema mild improvement, poor appetite, will add supplements to meals Review of Systems 10-point ROS is otherwise unremarkable General: As per HPI Physical Examination - Vital Signs reviewed - Physical Exam General: AAOX3, afebrile Respiratory: Normal air movement, Crackles/rales Capillary refill: <2 Seconds Gastrointestinal: Normal bowel sounds, Other (Mild abdominal distention from ascites) Musculoskeletal: Other (Generalized weakness) Integumentary: Other (+2-3 Bilateral lower extremity edema), dry skin Neurological: Normal speech, Normal strength at 5/5 x4 extr, Sensation intact, Cranial nerves 3-12 intact Assessment And Plan - Current Problems (Diagnosis) (1) Acute on chronic diastolic CHF (congestive heart failure) Current Visit: No Status: Acute (2) Anasarca Current Visit: Yes Status: Acute (3) Pulmonary edema Current Visit: Yes Status: Acute (4) Acute kidney injury superimposed on CKD Current Visit: Yes Status: Acute (5) Viral pneumonia Current Visit: Yes Status: Acute (6) History of GI bleed Current Visit: Yes Status: Acute (7) Atrial fibrillation with rapid ventricular response Onset Date: 11/29/17 Current Visit: No Status: Chronic - Plan Assessment plan acute decompensated heart failure with preserved ejection fraction Cardiology following Transthoracic echocardiogram in October 2023 result reviewed, normal ejection fraction, diastolic dysfunction, no valvular heart disease proBNP over 3000, repeat BNP 4000 Daily weight, I&O severe anasarca bilateral pleural effusion Hypoalbuminemia CT of abdomen and pelvis and chest personally reviewed, patient has early sign of cardiac cirrhosis Albumin/furosemide infusion, unable to start spironolactone due to CKD, DARRELL on CKD secondary to prerenal CHF Hypokalemia improved Trend renal function viral pneumonia, nfluenza A and B, Leukocytosis Will finish 5-day of Tamiflu with renal adjustment, antitussive, albuterol nebulizer, scheduled antitussive test positive for influenza A and B antigen upon admission paroxysmal atrial fibrillation Chronic anticoagulantion on apixaban Heart rate at target on amiodarone, w iron deficiency anemia Hemoglobin stable Trend H&H IV iron infusion while inpatient History of GI lower GI bleeding Likely hemorrhoidal, laxatives, no further bleeding after apixaban on hold, need outpatient colonoscopy, I will resume apixaban today type 2 diabetes Glycemia is worsening, I will add a 15 unit Lantus, 0.15 unit/kg and low-dose corrective insulin hemoglobin A1c 6.5 in 2021, new hemoglobin A1c pending, DVT prophylaxis back on apixaban Disposition plan to discharge home in a few days depending hospital course Discharge Plan: Home - Code Status/Comfort Care Code Status: Full Code Critical Care: No Time Spent Managing PTS Care (In Minutes): 25 <Tamara Barbour - Last Filed: 02/01/24 13:51> Chart has been reviewed. Events of the last 24 hours have been noted. Case discussed with LILLIAN. I performed a substantial part of the MDM during this patient's care today. I personally made or approved the documented management plan and acknowledge its risk of complications. I agree with the findings and documentation provided in the LILLIAN's notes <Leigh Ann Morris - Last Filed: 02/08/24 05:29>
--- NOTE | 2024-02-01 13:58 | P.DS ---
Admission Date: 01/24/24 Discharge Date: 02/05/24 Reason for Admission: CHF Exacerbation Brief History of Present Illness: 78 yrs old Male with a past medical history significant for A-fib on Eliquis, DM [id number], dementia, hypothyroidism, and chronic cellulitis of bilateral lower extremities and hypertension presented to the emergency room complaining of Fall . The patient fell from an upright position, while walking ,occurred 2 days ago. The patient sustained injury to the head, neck . Pain is controlled well. Patient started having shortness of breath which is progressively getting worse. Patient was assessed in the ER and was found to have CHF exacerbation and was admitted for further management Denies any chest pain. No fever or chills. No nausea vomiting or diarrhea. - Physical Exam General: AAxo, afebrile HEENT: Normocephalic Neck: Supple Respiratory: Normal air movement, Crackles/rales Cardiovascular: Regular rate/rhythm, Normal S1 S2 Capillary refill: <2 Seconds Gastrointestinal: Soft and benign, W/out hepatosplenomegaly Musculoskeletal: No clubbing Integumentary: No rashes Neurological: Normal speech, Normal strength at 5/5 x4 extr Lymphatics: No axilla or inguinal lymphadenopathy Hospital Course: 78 yrs old Male with a past medical history significant for A-fib on Eliquis, DM [id number], dementia, hypothyroidism, and chronic cellulitis of bilateral lower extremities and hypertension presented to the emergency room complaining of Fall . The patient fell from an upright position, while walking ,occurred 2 days ago. The patient sustained injury to the head, neck . Pain is controlled well. Patient started having shortness of breath which is progressively getting worse. Patient was assessed in the ER and was found to have CHF exacerbation and was admitted for further management. He was treated with aggressive diuresis, Lasix albumin drip, was noted to have acute kidney injury, CKD. Kidney function was monitored closely. History of A-fib RVR on chronic anticoagulation. No active bleeding. He has had significant weight loss while inpatient from fluid volume overload, plan to discharge home, patient follow-up with cardiology, nephrology after discharge, he ambulated with therapy while inpatient, with no noted further PT needs. Assessment Anasarca, cardiorenal syndrome, treated with Lasix albumin drip while inatient, seen by nephrology/hematology after discharge acute decompensated heart failure with preserved ejection fraction treated with aggressive diuresis A-fib RVR on chronic anticoagulation-Eliquis, amiodarone Influenza A/B, viral pneumonia treated with tamiflu Microcytic anemia, no active bleeding Diabetes type 2, resume home insulin, CT Moderate layering bilateral pleural effusions. Underlying dependent segmental airspace opacification with may reflect atelectasis. Liver demonstrates bulky appearance with mildly nodular contour, may suggest early cirrhotic or fibrotic change. Mild free ascites and diffuse body wall edema. Findings could relate to fluid overload CT of the cervical spine no acute changes post fall Continue home medicines as previously prescribed GOAL: Clear understanding of disease process INSTRUCTIONS: Physician Discharge Instructions: -Cardiology, for A-fib call office for appointment -hematology/Nephrology for DARRELL, CKD, call office for appointment -Follow-up with PCP in 1 to 2 weeks -Please call Dr. Morris at [phone] if any questions regarding hospital stay -Please call nursing station at [phone] if any nursing or medication questions -Return to the emergency room if symptoms worsen Diet: ADA, low sodium Activity: Fall precautions <Tamara Barbour - Last Filed: 02/07/24 13:01> Admission Date: 01/24/24 Discharge Date: 02/05/24 Hospital Course: Chart has been reviewed. Events of the last 24 hours have been noted. Case discussed with LILLIAN. I performed a substantial part of the MDM during this patient's care today. I personally made or approved the documented management plan and acknowledge its risk of complications. I agree with the findings and documentation provided in the LILLIAN's notes <Leigh Ann Morris - Last Filed: 02/08/24 05:30> Disposition: [facility] HOME/HOME HEALTH CARE Discharge Condition: GOOD Vital Signs/Physical Exam: Temp Pulse Resp BP Pulse Ox 97.7 F 72 16 105/50 L 95 02/01/24 13:48 02/01/24 13:48 02/01/24 13:48 02/01/24 13:48 02/01/24 13:48 Other Physical/Emotional Findings: . Laboratory Data at Discharge: WBC 14.40 thou/uL (4.3-10.9) H 02/01/24 06:01 Hgb 8.2 g/dL (13.6-17.9) L 02/01/24 06:01 Hct 26.2 % (39.6-49.0) L 02/01/24 06:01 Plt Count 226 thou/uL (152-406) 02/01/24 06:01 PT 22.2 SECONDS (9.4-12.5) H 01/24/24 21:10 INR 2.02 01/24/24 21:10 Sodium 140 mEq/L (136-145) 02/01/24 06:01 Potassium 3.7 mEq/L (3.5-5.1) 02/01/24 06:01 BUN 80 mg/dL (7-18) H 02/01/24 06:01 Creatinine 2.29 mg/dL (0.70-1.30) H 02/01/24 06:01 Glucose 145 mg/dL (74-106) H 02/01/24 06:01 Phosphorus 2.8 mg/dL (2.5-4.9) 02/01/24 06:01 Magnesium 2.6 mg/dL (1.6-2.4) H 01/25/24 04:34 Total Bilirubin 0.7 mg/dL (0.2-1.0) 01/25/24 04:34 AST < 10 U/L (15-37) L 01/25/24 04:34 ALT < 14 U/L (16-61) L 01/25/24 04:34 Alkaline Phosphatase 101 U/L (45-117) 01/25/24 04:34 Lipase 11 U/L (13-75) L 01/24/24 21:10 <Tamara Barbour - Last Filed: 02/07/24 13:01> Vital Signs/Physical Exam: Temp Pulse Resp BP Pulse Ox 97.4 F 71 16 120/55 L 99 02/05/24 11:58 02/05/24 11:58 02/05/24 11:58 02/05/24 11:58 02/05/24 11:58 Laboratory Data at Discharge: WBC 10.60 thou/uL (4.3-10.9) 02/05/24 05:58 Hgb 8.0 g/dL (13.6-17.9) L 02/05/24 05:58 Hct 25.0 % (39.6-49.0) L 02/05/24 05:58 Plt Count 155 thou/uL (152-406) 02/05/24 05:58 PT 22.2 SECONDS (9.4-12.5) H 01/24/24 21:10 INR 2.02 01/24/24 21:10 Sodium 141 mEq/L (136-145) 02/05/24 05:58 Potassium 3.8 mEq/L (3.5-5.1) 02/05/24 05:58 BUN 89 mg/dL (7-18) H 02/05/24 05:58 Creatinine 2.42 mg/dL (0.70-1.30) H 02/05/24 05:58 Glucose 113 mg/dL (74-106) H 02/05/24 05:58 Phosphorus 2.7 mg/dL (2.5-4.9) 02/05/24 05:58 Magnesium 1.9 mg/dL (1.6-2.4) 02/04/24 04:20 Total Bilirubin 0.7 mg/dL (0.2-1.0) 01/25/24 04:34 AST < 10 U/L (15-37) L 01/25/24 04:34 ALT < 14 U/L (16-61) L 01/25/24 04:34 Alkaline Phosphatase 101 U/L (45-117) 01/25/24 04:34 Lipase 11 U/L (13-75) L 01/24/24 21:10 <Leigh Ann Morris - Last Filed: 02/08/24 05:30> Diet: Low sodium Time spent managing pt's care (in minutes): 45 <Tamara Barbour - Last Filed: 02/07/24 13:01> <Leigh Ann Morris - Last Filed: 02/08/24 05:30> Home Medications: Amiodarone HCl [Cordarone*] 200 mg PO DAILY 10/19/17 Apixaban [Eliquis *] 2.5 mg PO BID 10/19/17 Sertraline HCl 25 mg PO DAILY 05/27/21 Levothyroxine Sodium [Levo-T] 25 mcg PO [id number] 10/30/23 Liothyronine Sodium [Cytomel] 5 mcg PO [id number] 10/30/23 Gabapentin 100 mg PO TID 12/26/23 Apixaban [Eliquis *] 2.5 mg PO BID 02/03/24 Benzonatate [Tessalon Perle] 100 mg PO TID 10 Days #20 cap 02/03/24 Ensure High Protein 237 ml PO BID PRN 30 Days #1 pkg 02/03/24 Furosemide [Lasix] 40 mg PO 30 MIN BEFORE HS 30 Days #30 mg 02/03/24 Albuterol Neb [Proventil 0.083% Neb Soln] 2.5 mg NEB [id number] PRN #60 amp 02/05/24 Furosemide [Lasix*] 40 mg PO BIDL #60 tab 02/05/24 Insulin Glargine,Hum.rec.anlog [Semglee] 15 unit SQ DAILY #2 vial 02/05/24 Dickson [Dickson*] 1 pkt PO BID #60 packet 02/05/24 Spironolactone [Aldactone*] 50 mg PO DAILY #60 tab 02/05/24 New Medications: Spironolactone [Aldactone*] 50 mg PO DAILY #60 tab Ensure High Protein 237 ml PO BID PRN 30 Days #1 pkg PRN Reason: REQUESTED BY PT Dickson [Dickson*] 1 pkt PO BID #60 packet Furosemide [Lasix] 40 mg PO 30 MIN BEFORE HS 30 Days #30 mg Furosemide [Lasix*] 40 mg PO BIDL #60 tab Albuterol Neb [Proventil 0.083% Neb Soln] 2.5 mg NEB [id number] PRN #60 amp PRN Reason: Shortness Of Breath Insulin Glargine,Hum.rec.anlog [Semglee] 15 unit SQ DAILY #2 vial Benzonatate [Tessalon Perle] 100 mg PO TID 10 Days #20 cap Physician Discharge Instructions: 78 yrs old Male with a past medical history significant for A-fib on Eliquis, DM [id number], dementia, hypothyroidism, and chronic cellulitis of bilateral lower extremities and hypertension presented to the emergency room complaining of Fall . The patient fell from an upright position, while walking ,occurred 2 days ago. The patient sustained injury to the head, neck . Pain is controlled well. Patient started having shortness of breath which is progressively getting worse. Patient was assessed in the ER and was found to have CHF exacerbation and was admitted for further management. He was treated with aggressive diuresis, Lasix albumin drip, was noted to have acute kidney injury, CKD. Kidney function was monitored closely. History of A-fib RVR on chronic anticoagulation. No active bleeding. He has had significant weight loss while inpatient from fluid volume overload, plan to discharge home, patient follow-up with cardiology, nephrology after discharge, he ambulated with therapy while inpatient, with no noted further PT needs. Assessment Anasarca, cardiorenal syndrome, treated with Lasix albumin drip while inatient, seen by nephrology/hematology after discharge acute decompensated heart failure with preserved ejection fraction treated with aggressive diuresis A-fib RVR on chronic anticoagulation-Eliquis, amiodarone Influenza A/B, viral pneumonia treated with tamiflu Microcytic anemia, no active bleeding Diabetes type 2, resume home insulin, CT Moderate layering bilateral pleural effusions. Underlying dependent segmental airspace opacification with may reflect atelectasis. Liver demonstrates bulky appearance with mildly nodular contour, may suggest early cirrhotic or fibrotic change. Mild free ascites and diffuse body wall edema. Findings could relate to fluid overload CT of the cervical spine no acute changes post fall Continue home medicines as previously prescribed GOAL: Clear understanding of disease process INSTRUCTIONS: Physician Discharge Instructions: -Follow-up with Cardiology, for atrial fibrillation; call office for appointment -Follow-up with Nephrology for DARRELL, CKD, call office for appointment -Follow-up with Hematology for evaluation for M protein in urine-? multiple myeloma -Follow-up with PCP in 1 to 2 weeks -Please call Dr. Morris at [phone] if any questions regarding hospital stay -Please call nursing station at [phone] if any nursing or medication questions -Return to the emergency room if symptoms worsen Diet: ADA, low sodium Activity: Fall precautions Followup: Manuel Hall MD [ACTIVE - CAN ADMIT] - Fortunato Ackerman MD [ACTIVE - CAN ADMIT] - Deidra Iyer MD [ACTIVE - CAN ADMIT] - Dulce Zimmerman NP [Primary Care Provider] -
[2024-02-02 06:45] LABS: Anion Gap 7.3 mEq/L (5.0-15.0); Potassium 3.3 mEq/L (3.5-5.1)
[2024-02-02 07:56] LABS: Absolute Basophils 0.1 K/uL (0-0.5); Absolute Eosinophils 0.4 K/uL (0-0.5); Absolute Lymphocytes (CBC) 1.8 K/uL (0.7-4.9); Absolute Monocytes 2.2 K/uL (0.1-1.3); Absolute Neutrophil 9.1 K/uL (1.8-8.0); Basophils % 0.7 % (0-1.3); Eosinophils % 2.9 % (0-4.4); Hematocrit 25.3 % (39.6-49.0); Hemoglobin 7.9 g/dL (13.6-17.9); Lymphocytes % 13.3 % (15.3-44.8); MCH 26.5 pg (27.0-35.0); MCHC 31.1 g/dL (32.0-36.0); MPV 6.8 fL (7.6-11.3); Monocytes % 16.2 % (3.3-12.3); Neutrophils % 66.9 % (41.7-73.7); Nucleated Red Blood Cells % 0.1 % (0-0); Platelets 214 thou/uL (152-406); RBC Red Blood Cell Count 2.98 M/uL (4.33-5.43); Red Cell Distribution Width 16.8 % (12.1-15.2)
[2024-02-02 08:04] LABS: Albumin 2.6 g/dL (3.4-5.0); Anion Gap 5.3 mEq/L (5.0-15.0); Phosphorus 2.9 mg/dL (2.5-4.9); Potassium 3.3 mEq/L (3.5-5.1)
--- NOTE | 2024-02-02 15:17 | P.PN ---
Date of Service: 02/02/24 Subjective Chief Complaint: CHF Exacerbation ] OOB to chair for meals, no acute distress noted Review of Systems 10-point ROS is otherwise unremarkable Physical Examination - Vital Signs reviewed - Physical Exam General: AAOX3, afebrile Respiratory: Normal air movement, Crackles/rales Capillary refill: <2 Seconds Gastrointestinal: Normal bowel sounds, Other abdominal distention from ansarca Musculoskeletal: Other (Generalized weakness) Integumentary: Other (+2-3 Bilateral lower extremity edema), dry skin Neurological: Normal speech, Normal strength at 5/5 x4 extr, Sensation intact, Assessment And Plan - Current Problems (Diagnosis) (1) Acute on chronic diastolic CHF (congestive heart failure) Current Visit: No Status: Acute (2) Anasarca Current Visit: Yes Status: Acute (3) Pulmonary edema Current Visit: Yes Status: Acute (4) Acute kidney injury superimposed on CKD Current Visit: Yes Status: Acute (5) Viral pneumonia Current Visit: Yes Status: Acute (6) History of GI bleed Current Visit: Yes Status: Acute (7) Atrial fibrillation with rapid ventricular response Onset Date: 11/29/17 Current Visit: No Status: Chronic - Plan Assessment plan acute decompensated heart failure with preserved ejection fraction Cardiology following Transthoracic echocardiogram in October 2023 result reviewed, normal ejection fraction, diastolic dysfunction, no valvular heart disease proBNP over 3000, repeat BNP 4000 Daily weight, I&O 260-233 improving severe anasarca inproving bilateral pleural effusion Hypoalbuminemia CT of abdomen and pelvis and chest personally reviewed, patient has early sign of cardiac cirrhosis Albumin/furosemide infusion, unable to start spironolactone due to CKD, supplements added DARRELL on CKD secondary to prerenal CHF Hypokalemia improved Trend renal function, gentle diuresis viral pneumonia, nfluenza A and B, Leukocytosis improving Will finish 5-day of Tamiflu with renal adjustment, antitussive, albuterol nebulizer, scheduled antitussive test positive for influenza A and B antigen upon admission paroxysmal atrial fibrillation Chronic anticoagulantion Permanent pacemaker on apixaban Heart rate at target on amiodarone, w iron deficiency anemia Hemoglobin stable Trend H&H IV iron infusion while inpatient History of GI lower GI bleeding No active bleeding Likely hemorrhoidal, laxatives, no further bleeding after apixaban on hold, need outpatient colonoscopy, I will resume apixaban today type 2 diabetes Glycemia is worsening, I will add a 15 unit Lantus, 0.15 unit/kg and low-dose corrective insulin hemoglobin A1c 6.5 in 2021, new hemoglobin A1c pending, DVT prophylaxis back on apixaban Disposition plan to discharge home in a few days depending hospital course Discharge Plan: Home - Code Status/Comfort Care Code Status: Full Code Critical Care: No Time Spent Managing PTS Care (In Minutes): 25 <Tamara Barbour - Last Filed: 02/02/24 15:17> Chart has been reviewed. Events of the last 24 hours have been noted. Case discussed with LILLIAN. I performed a substantial part of the MDM during this patient's care today. I personally made or approved the documented management plan and acknowledge its risk of complications. I agree with the findings and documentation provided in the LILLIAN's notes <Leigh Ann Morris - Last Filed: 02/08/24 05:29>
[2024-02-02] MEDS: ONDANSETRON 4 MG/2 ML VIAL IV PRN (17:36)
[2024-02-02] MEDS: POTASSIUM CL SA 10 MEQ TAB PO SCH (20:31)
[2024-02-03 06:28] LABS: Absolute Basophils 0.1 K/uL (0-0.5); Absolute Eosinophils 0.3 K/uL (0-0.5); Absolute Lymphocytes (CBC) 1.4 K/uL (0.7-4.9); Absolute Monocytes 1.8 K/uL (0.1-1.3); Absolute Neutrophil 9.1 K/uL (1.8-8.0); Basophils % 0.5 % (0-1.3); Eosinophils % 2.3 % (0-4.4); Hemoglobin 8.3 g/dL (13.6-17.9); Lymphocytes % 11.2 % (15.3-44.8); MCHC 31.8 g/dL (32.0-36.0); MPV 7.2 fL (7.6-11.3); Platelets 200 thou/uL (152-406); RBC Red Blood Cell Count 3.07 M/uL (4.33-5.43)
[2024-02-03 07:23] LABS: Albumin 2.6 g/dL (3.4-5.0); Anion Gap 7.8 mEq/L (5.0-15.0); Phosphorus 2.7 mg/dL (2.5-4.9); Potassium 3.8 mEq/L (3.5-5.1)
--- NOTE | 2024-02-03 13:32 | CON ---
Date of Consultation: 02/03/2024 Reason For Consultation: Elevated BUN and creatinine, fluid management. History Of Present Illness: This is a pleasant 78-year-old gentleman with significant past medical history of diabetes complicated with neuropathy and retinopathy, nephropathy, hypertension, hyperlipidemia, CVA, AFib, CAD with congestive heart failure, preserved ejection fraction, diastolic dysfunction. Last echocardiogram back in October 2023, ejection fraction of 65%, moderate pulmonary hypertension, the patient came to the hospital with shortness of breath and increased leg swelling. According to the patient's daughter, all the information has been obtained from the patient's daughter as the patient had dementia. Patient had a visit with his Cardiology, found to have elevation in BUN and creatinine. For that reason, diuretic has been decreased by 60%. The patient started having shortness of breath and increased leg swelling, for that reason came to the hospital. The patient denied taking any nonsteroidal. No IV contrast. Primary workup showed CHF with exacerbation, overvolume. The patient was started on diuresis. The patient feeling better. Past Medical History: Includes: 1. CVA with no residual. 2. AFib, status post ICD back in 2014. 3. Diabetes complicated with neuropathy, retinopathy, and nephropathy. 4. Pulmonary hypertension. 5. Congestive heart failure, diastolic dysfunction, ejection fraction as of October 2023 within normal limit with moderate pulmonary hypertension. 6. Dementia. 7. Hypothyroidism. 8. Chronic kidney disease, baseline creatinine 2, GFR of 33, as of December 2023. Past Surgical History: Includes total knee replacement; cataract; staph infection, big toe amputation. Family History: Positive for CAD and hypertension. Social History: Active smoker. Denied alcohol. Denied drugs abuse. Review of Systems: Head and Neck: No red eye. No ear pain. GI: No nausea. No vomiting. : No polyuria. No dysuria. No hematuria. PRODUCT OPERATIONS ASSOCIATE: Not applicable. Respiratory: Has shortness of breath. Cardiovascular: Has leg swelling. Has orthopnea. Endocrine: No polydipsia. Skin: No rash. Neuro: Has neuropathy. Musculoskeletal: Generalized fatigue. Physical Examination: Vital Signs: When I saw the patient, blood pressure 104/54, pulse of 73, afebrile. Chest: Crackles, bilateral. Heart: S1, S2. Systolic murmur. Abdomen: Soft, nontender. Extremities: +2 edema. Neurologic: Alert, not oriented, confused. No focality. Laboratory Data: For the patient, upon arrival to the hospital on the , hemoglobin 7.9, WBC 14.8, sodium 138, potassium 4.5, bicarb 24, BUN 70, creatinine 3.3, GFR of 18, calcium 8.6. Today's lab data; sodium 141, potassium 3.8, bicarb 32, BUN 82, creatinine 2.3, GFR 28, calcium of 8.8, phosphorus 2.7, iron saturation 7.1. Reviewing the chest x-ray, cardiomegaly with congestion. Reviewing the record for the patient, serum protein electrophoresis, possible M spike. TSH 4.6. CT negative for hydronephrosis. PTH 65. Current Medications: The patient on, it includes albuterol, Eliquis, amiodarone, Tylenol, gabapentin, Ensure, ipratropium, Zofran, levothyroxine. Assessment And Plan: 1. Acute kidney injury secondary to cardiorenal, overvolume. I am going to go ahead and resume diuresis and we will follow up. The patient at home at 40 mg. We will resume at 40 b.i.d. and we will follow up. a. Keep holding any DELANEY inhibitor and ARB. b. I will repeat chest x-ray for better evaluation of the fluid status for the patient and we will follow up. 2. Hypertension, controlled, optimal. We will monitor the patient. 3. Secondary hyperparathyroidism. No need for vitamin D for the time being. 4. Anasarca secondary to cardiorenal, pulmonary Hypertension. I am going to resume Lasix and add low dose of spironolactone and we will follow up the patient. 5. Anemia secondary to iron-deficiency anemia. We will monitor the patient. We will start on IV iron. 6. Proteinuria, nonnephrotic. Serum protein electrophoresis, questionable of M spike. We will monitor. 7. Diabetes, as by Primary. 8. Congestive heart failure with exacerbation, as by Primary and Cardiology. We will optimize the fluid status. 9. Pulmonary hypertension, as above. 10. Respiratory failure secondary to flu and congestive heart failure with exacerbation. Continue current treatment. Dose appropriate. Resume Lasix. Time spent examining the patient [id number] reviewing data lab and radiology placing order discussing the case with the patient / family by bedside discussing the case with the team physician including hospitalist and nursing staff more than 75-minute MARVIN Voice ID: [id number] Report ID: [id number] URSULA
--- NOTE | 2024-02-03 16:00 | RAD REPORT ---
EXAMINATION: ONE VIEW CHEST XR CLINICAL INDICATION: COPD TECHNIQUE: Frontal chest projection is submitted. Examination is limited by patient positioning and t echnique. COMPARISON: 01/30/2024 FINDINGS: The lateral pulmonary opacities are noted, slightly greater on the right, likely pulmonary edema. Sma ll bilateral pleural effusions, larger on the right. The heart is moderately enlarged. No displaced fractures identified. Dual lead pacer device present. IMPRESSION: [id number] CHF versus volume overload pattern.
[2024-02-03] MEDS: FUROSEMIDE 40 MG/4 ML VIAL IV SCH (17:18)
[2024-02-04 05:01] LABS: Absolute Basophils 0.1 K/uL (0-0.5); Absolute Eosinophils 0.3 K/uL (0-0.5); Absolute Lymphocytes (CBC) 1.9 K/uL (0.7-4.9); Absolute Monocytes 2.1 K/uL (0.1-1.3); Absolute Neutrophil 9.3 K/uL (1.8-8.0); Basophils % 0.6 % (0-1.3); Hematocrit 26.6 % (39.6-49.0); Hemoglobin 8.4 g/dL (13.6-17.9); Lymphocytes % 14.1 % (15.3-44.8); MCHC 31.6 g/dL (32.0-36.0); MCV 85.2 fL (80-100); MPV 7.4 fL (7.6-11.3); Monocytes % 15.3 % (3.3-12.3); Platelets 179 thou/uL (152-406); RBC Red Blood Cell Count 3.12 M/uL (4.33-5.43); Red Cell Distribution Width 16.8 % (12.1-15.2)
[2024-02-04 05:43] LABS: Albumin 2.5 g/dL (3.4-5.0); Anion Gap 6.3 mEq/L (5.0-15.0); Magnesium 1.9 mg/dL (1.6-2.4); Phosphorus 2.3 mg/dL (2.5-4.9); Potassium 4.3 mEq/L (3.5-5.1)
[2024-02-04] MEDS: POTASS/SODIUM PHOSPHATE 1 PKT POWD.PACK PO SCH (09:31)
[2024-02-04] MEDS: SPIRONOLACTONE 25 MG TABLET PO SCH (09:33)
[2024-02-04] MEDS: ALBUMIN HUMAN 25% 100 ML IV ONE (17:08)
--- NOTE | 2024-02-05 04:02 | PN ---
Date of Progress Note: 02/04/2024 Chief Complaint: Elevated BUN and creatinine level; acute and chronic kidney disease. Subjective: The patient was found to have elevated BUN and creatinine level. He has underlying beer brewer karla kidney disease stage 3, GFR 33. He came to the hospital because of shortness of breath. He has history of coronary artery disease, CVA, atrial fibrillation, diabetes mellitus with neuropathy, reti nopathy, nephropathy, hypertension, hyperlipidemia, congestive heart failure with preserved ejection fraction, diastolic dysfunction and ejection fraction 65%, pulmonary hypertension. He was found to h ave influenza and he is on Tamiflu. Workup showed CHF exacerbation, fluid overload. Review of Systems: The patient denies complaints today. Denies fever, chills. Denies dysuria or hematuria. Physical Examination: Lungs: Clear to auscultation bilaterally. Heart: S1, S2. abdomen: Soft, benign. Extremities: Slight edema. Laboratory Data: Hemoglobin 7.9, WBC 14.8. Sodium 138, potassium 4.5, bicarbonate 24, BUN 70, creat inine 3.3. CT scan negative for hydronephrosis. Impression And Plan: 1.Acute kidney injury secondary to cardiorenal syndrome with fluid overload. Continue Lasix and Las ix was resumed during this hospitalization. The patient will be increased dose from 40 mg daily to 4 0 mg twice a day. Continue to monitor fluid balance. Hold DELANEY inhibitor and angiotensin receptor bl ocker due to acute kidney injury. Monitor electrolytes closely. 2.Hypertension. Continue blood pressure medication. 3.Secondary hyperparathyroidism. Monitor intact PTH. No need to start vitamin D analogs. Continue vitamin D3 2000 units daily. 4.Anasarca secondary to cardiorenal syndrome, pulmonary hypertension. Continue Lasix, the dose was adjusted. 5.Anemia due to chronic kidney disease and iron deficiency. Continue iron supplementation. 6.Proteinuria, nephrotic. Serum protein electrophoresis was ordered and the patient was found to gillespie ve questionable M-spike. The patient will need to follow up with Nephrology and Hematology. EB/MODL Voice ID: [id number] Report ID: [id number]
[2024-02-05 05:01] VITALS: BMI 29.1
[2024-02-05 06:19] LABS: Absolute Basophils 0.1 K/uL (0-0.5); Absolute Eosinophils 0.3 K/uL (0-0.5); Absolute Lymphocytes (CBC) 1.4 K/uL (0.7-4.9); Absolute Monocytes 1.9 K/uL (0.1-1.3); Absolute Neutrophil 6.9 K/uL (1.8-8.0); Basophils % 0.7 % (0-1.3); Eosinophils % 3.1 % (0-4.4); Lymphocytes % 13.2 % (15.3-44.8); MCH 27.4 pg (27.0-35.0); MCV 85.5 fL (80-100); MPV 7.5 fL (7.6-11.3); Monocytes % 17.6 % (3.3-12.3); Neutrophils % 65.4 % (41.7-73.7); Platelets 155 thou/uL (152-406); RBC Red Blood Cell Count 2.93 M/uL (4.33-5.43); Red Cell Distribution Width 17.2 % (12.1-15.2)
[2024-02-05 06:35] LABS: Albumin 2.6 g/dL (3.4-5.0); Anion Gap 5.8 mEq/L (5.0-15.0); Phosphorus 2.7 mg/dL (2.5-4.9); Potassium 3.8 mEq/L (3.5-5.1)
[2024-02-05 08:20] VITALS: TEMP 97.4
[2024-02-05] MEDS: POTASSIUM 25 MEQ EFFERV TAB PO ONE (08:57)
[2024-02-05 09:21] VITALS: O2SAT 96
--- NOTE | 2024-02-05 09:56 | PN ---
Date of Progress Note: 02/05/2024 The patient was admitted to the hospital with acute kidney injury secondary to cardiorenal over volume with anasarca. The patient was started on diuresis with Lasix and spironolactone. Patient had good urine output. The patient lost 3 pounds from admission tolerating the diuresis. Physical Examination: Vital Signs: Blood pressure 109/50, pulse of 65, afebrile. The patient had urine output of 1800, negative of 300. Chest: Decreased entry bilateral base. Heart: S1-S2 systolic murmur. Abdomen: Soft, nontender. Extremity: Venous stasis change, +2 edema. Neurologic: Alert. No focality. Laboratory Data: WBC 10.6, hemoglobin of 8, sodium 141, potassium 3.8, bicarb 33, BUN 89, creatinine 2.4, GFR 26, calcium 8.5, phosphorus 2.7. Current Medications: The patient on include: 1. Albuterol. 2. Eliquis. 3. Amiodarone 200. 4. Spironolactone 25 daily. 5. Gabapentin 100 mg t.i.d. 6. Zoloft. 7. Lasix 40 b.i.d. 8. Levothyroxine. Assessment And Plan: 1. Acute kidney injury on chronic kidney disease secondary to cardiorenal. The patient diuresing very well. I am going to place the patient on fluid restriction. We will switch the patient to oral Lasix with the same dosage. Continue spironolactone and we will monitor the patient. 2. Hypertension, controlled optimal. We will continue to utilize blood pressure for diuresis. I am going to switch the Lasix to oral. Increase spironolactone. 3. Congestive heart failure with exacerbation secondary to diastolic dysfunction. The patient's fluid status has been optimized. Continue diuresis as above. 4. Anasarca secondary to cardiorenal and pulmonary hypertension as above. 5. Diabetes as by primary. 6. Pulmonary hypertension. We added spironolactone. 7. Respiratory failure secondary to over volume. We will optimize the fluid status. 8. Hypokalemia. Potassium is trending up nicely after adding spironolactone. No supplement needed currently. We will increase spironolactone. Time spent examining the patient [id number] reviewing data lab and radiology placing order discussing the case with the patient / family by bedside discussing the case with the seal delivery vehicle team technician including hospitalist and nursing staff more than 55-minute MARVIN Voice ID: [id number] Report ID: [id number] MTDD
[2024-02-05 12:00] VITALS: BP 120/55
[2024-02-05] MEDS ORDERED: FUROSEMIDE 40 MG TABLET PO SCH (17:00)
[2024-02-05] MEDS ORDERED: GABAPENTIN 100 MG CAP PO SCH (21:00)
[2024-02-06] MEDS ORDERED: SPIRONOLACTONE 25 MG TABLET PO SCH (09:00)
--- NOTE | 2024-02-07 12:55 | P.PN ---
Date of Service: 02/03/24 Subjective Chief Complaint: CHF Exacerbation ] OOB to chair for meals, no acute distress noted, lower extremity edema improving Review of Systems 10-point ROS is otherwise unremarkable Physical Examination - Vital Signs reviewed - Physical Exam General: AAOX3, afebrile, no acute distress noted Respiratory: Normal air movement, Crackles/rales Capillary refill: <2 Seconds, supple Gastrointestinal: Normal bowel sounds, Other abdominal distention from ansarca Musculoskeletal: Other (Generalized weakness) Integumentary: Other ( Bilateral lower extremity edema), dry skin Neurological: Normal speech, Normal strength at 5/5 x4 extr, Sensation intact, Assessment And Plan - Current Problems (Diagnosis) (1) Acute on chronic diastolic CHF (congestive heart failure) Current Visit: No Status: Acute (2) Anasarca Current Visit: Yes Status: Acute (3) Pulmonary edema Current Visit: Yes Status: Acute (4) Acute kidney injury superimposed on CKD Current Visit: Yes Status: Acute (5) Viral pneumonia Current Visit: Yes Status: Acute (6) History of GI bleed Current Visit: Yes Status: Acute (7) Atrial fibrillation with rapid ventricular response Onset Date: 11/29/17 Current Visit: No Status: Chronic - Plan Assessment plan acute decompensated heart failure with preserved ejection fraction Cardiology following Transthoracic echocardiogram in October 2023 result reviewed, normal ejection fraction, diastolic dysfunction, no valvular heart disease proBNP over 3000, repeat BNP 4000 Daily weight, I&O 260-233 improving severe anasarca inproving bilateral pleural effusion Hypoalbuminemia CT of abdomen and pelvis and chest personally reviewed, patient has early sign of cardiac cirrhosis Albumin/furosemide infusion, unable to start spironolactone due to CKD, supplements added DARRELL on CKD secondary to prerenal CHF Hypokalemia improved Trend renal function, gentle diuresis viral pneumonia, nfluenza A and B, Leukocytosis improving Will finish 5-day of Tamiflu with renal adjustment, antitussive, albuterol nebulizer, scheduled antitussive test positive for influenza A and B antigen upon admission paroxysmal atrial fibrillation Chronic anticoagulantion Permanent pacemaker on apixaban Heart rate at target on amiodarone, w iron deficiency anemia Hemoglobin stable Trend H&H IV iron infusion while inpatient History of GI lower GI bleeding No active bleeding Likely hemorrhoidal, laxatives, no further bleeding after apixaban on hold, need outpatient colonoscopy, I will resume apixaban today type 2 diabetes Glycemia is worsening, I will add a 15 unit Lantus, 0.15 unit/kg and low-dose corrective insulin hemoglobin A1c 6.5 in 2021, new hemoglobin A1c pending, DVT prophylaxis back on apixaban Disposition plan to discharge home in a few days depending hospital course Discharge Plan: Home - Code Status/Comfort Care Code Status: Full Code Critical Care: No Time Spent Managing PTS Care (In Minutes): 25 <Tamara Barbour - Last Filed: 02/07/24 12:55> Chart has been reviewed. Events of the last 24 hours have been noted. Case discussed with LILLIAN. I performed a substantial part of the MDM during this patient's care today. I personally made or approved the documented management plan and acknowledge its risk of complications. I agree with the findings and do cumentation provided in the LILLIAN's notes <Leigh Ann Morris - Last Filed: 02/08/24 05:30>
--- NOTE | 2024-02-07 12:58 | P.PN ---
Date of Service: 02/04/24 Subjective Chief Complaint: CHF Exacerbation ] Review of Systems 10-point ROS is otherwise unremarkable Physical Examination - Vital Signs reviewed - Physical Exam General: AAOX3, afebrile, no acute distress noted, afebrile Respiratory: Normal air movement, Crackles/rales, diminished Capillary refill: <2 Seconds, supple Gastrointestinal: Normal bowel sounds, Other abdominal distention from ansarca improvinf Musculoskeletal: Other (Generalized weakness) Integumentary: Other ( Bilateral lower extremity edema), dry skin Neurological: Normal speech, Normal strength at 5/5 x4 extr, Sensation intact, Assessment And Plan - Current Problems (Diagnosis) (1) Acute on chronic diastolic CHF (congestive heart failure) Current Visit: No Status: Acute (2) Anasarca Current Visit: Yes Status: Acute (3) Pulmonary edema Current Visit: Yes Status: Acute (4) Acute kidney injury superimposed on CKD Current Visit: Yes Status: Acute (5) Viral pneumonia Current Visit: Yes Status: Acute (6) History of GI bleed Current Visit: Yes Status: Acute (7) Atrial fibrillation with rapid ventricular response Onset Date: 11/29/17 Current Visit: No Status: Chronic - Plan Assessment plan acute decompensated heart failure with preserved ejection fraction Cardiology following Transthoracic echocardiogram in October 2023 result reviewed, normal ejection fraction, diastolic dysfunction, no valvular heart disease proBNP over 3000, repeat BNP 4000 Daily weight, I&O 260-233 improving severe anasarca inproving bilateral pleural effusion Hypoalbuminemia CT of abdomen and pelvis and chest personally reviewed, patient has early sign of cardiac cirrhosis Albumin/furosemide infusion, unable to start spironolactone due to CKD, supplements added DARRELL on CKD secondary to prerenal CHF Hypokalemia improved Trend renal function, gentle diuresis viral pneumonia, nfluenza A and B, Leukocytosis improving Will finish 5-day of Tamiflu with renal adjustment, antitussive, albuterol nebulizer, scheduled antitussive test positive for influenza A and B antigen upon admission paroxysmal atrial fibrillation Chronic anticoagulantion Permanent pacemaker on apixaban Heart rate at target on amiodarone, w iron deficiency anemia Hemoglobin stable Trend H&H IV iron infusion while inpatient History of GI lower GI bleeding No active bleeding Likely hemorrhoidal, laxatives, no further bleeding after apixaban on hold, need outpatient colonoscopy, I will resume apixaban today type 2 diabetes Glycemia is worsening, I will add a 15 unit Lantus, 0.15 unit/kg and low-dose corrective insulin hemoglobin A1c 6.5 in 2021, new hemoglobin A1c pending, DVT prophylaxis back on apixaban Disposition plan to discharge home in a few days depending hospital course Discharge Plan: Home - Code Status/Comfort Care Code Status: Full Code Critical Care: No Time Spent Managing PTS Care (In Minutes): 25 <Tamara Barbour - Last Filed: 02/07/24 12:59> Chart has been reviewed. Events of the last 24 hours have been noted. Case discussed with LILLIAN. I performed a substantial part of the MDM during this patie nt's care today. I personally made or approved the documented management plan and acknowledge its risk of complications. I agree with the findings and documentation provided in the LILLIAN's notes <Leigh Ann Morris - Last Filed: 02/08/24 05:30>
== END 2024-02-05 14:23 | disposition home health service (06) | DRG 291 ==
LOC: ER 17:27 → ERHOLD 23:15 → 3RD-ICU 01-25 01:38 → 2ND 01-25 17:59
PROVIDERS: ADMIT Family Medicine; ATTEND Hospitalist
DX: I13.0 Hypertensive heart and chronic kidney disease with heart failure and stage 1 through stage 4 chronic kidney disease, or unspecified chronic kidney disease (principal); I50.33 Acute on chronic diastolic (congestive) heart failure; J10.00 Influenza due to other identified influenza virus with unspecified type of pneumonia; J10.08 Influenza due to other identified influenza virus with other specified pneumonia; J12.9 Viral pneumonia, unspecified; J96.90 Respiratory failure, unspecified, unspecified whether with hypoxia or hypercapnia; N17.9 Acute kidney failure, unspecified; R18.8 Other ascites; N25.81 Secondary hyperparathyroidism of renal origin; N18.9 Chronic kidney disease, unspecified; E11.22 Type 2 diabetes mellitus with diabetic chronic kidney disease; E11.51 Type 2 diabetes mellitus with diabetic peripheral angiopathy without gangrene; E11.40 Type 2 diabetes mellitus with diabetic neuropathy, unspecified; D63.1 Anemia in chronic kidney disease; D50.9 Iron deficiency anemia, unspecified; L89.152 Pressure ulcer of sacral region, stage 2; K76.1 Chronic passive congestion of liver; I48.0 Paroxysmal atrial fibrillation; E88.09 Other disorders of plasma-protein metabolism, not elsewhere classified; E87.6 Hypokalemia; I27.20 Pulmonary hypertension, unspecified; K21.9 Gastro-esophageal reflux disease without esophagitis; E03.9 Hypothyroidism, unspecified; S09.90XA Unspecified injury of head, initial encounter; F03.90 Unspecified dementia, unspecified severity, without behavioral disturbance, psychotic disturbance, mood disturbance, and anxiety; Z79.4 Long term (current) use of insulin; Z88.8 Allergy status to other drugs, medicaments and biological substances; Z11.52 Encounter for screening for COVID-19; Z79.01 Long term (current) use of anticoagulants; Z79.84 Long term (current) use of oral hypoglycemic drugs; Z79.02 Long term (current) use of antithrombotics/antiplatelets; Z86.73 Personal history of transient ischemic attack (TIA), and cerebral infarction without residual deficits; Z79.890 Hormone replacement therapy; Z96.651 Presence of right artificial knee joint; Z89.412 Acquired absence of left great toe; Z89.421 Acquired absence of other right toe(s); Z79.899 Other long term (current) drug therapy; W18.30XA Fall on same level, unspecified, initial encounter; Y93.01 Activity, walking, marching and hiking; Y92.9 Unspecified place or not applicable; Y99.9 Unspecified external cause status
CPT/HCPCS: 36415; 70450; 71045; 72125; 74176; 80048; 80053; 80069; 80076; 81001; 82947; 83036; 83690; 83735; 83880; 84100; 84439; 84443; 84484; 85025; 85027; 85044; 85610; 86850; 86900; 86901; 87804; 87807; 87811; 93005; 94640; 94760; 96365; 96375; 97116; 97161; 97164; 97530; 99284; J1940; J2405; J2916; J7050; J7613; J7644; P9047

== ENCOUNTER 2024-02-20 18:05 | Inpatient (IN) | payer OTHER ==
[2024-02-20] MEDS ORDERED: OXYMETAZOLINE HCL 0.05% 15ML NAS ONE (18:28)
[2024-02-20 19:00] LABS: Absolute Basophils 0.1 K/uL (0-0.5); Absolute Eosinophils 0.2 K/uL (0-0.5); Absolute Lymphocytes (CBC) 1.1 K/uL (0.7-4.9); Absolute Monocytes 1.6 K/uL (0.1-1.3); Absolute Neutrophil 5.3 K/uL (1.8-8.0); Basophils % 0.6 % (0-1.3); Eosinophils % 2.7 % (0-4.4); Hematocrit 25.8 % (39.6-49.0); Hemoglobin 8.3 g/dL (13.6-17.9); Lymphocytes % 13.4 % (15.3-44.8); MCH 28.2 pg (27.0-35.0); MPV 7.2 fL (7.6-11.3); Monocytes % 18.8 % (3.3-12.3); Neutrophils % 64.5 % (41.7-73.7); Nucleated Red Blood Cells % 0.1 % (0-0); Platelets 181 thou/uL (152-406); RBC Red Blood Cell Count 2.93 M/uL (4.33-5.43); Red Cell Distribution Width 21.2 % (12.1-15.2)
[2024-02-20 19:16] LABS: Albumin 2.5 g/dL (3.4-5.0); Albumin/Globulin Ratio 0.6 (1.1-1.8); Anion Gap 9.9 mEq/L (5.0-15.0); Bilirubin Total 0.5 mg/dL (0.2-1.0); Globulin 4.4 g/dL (2.3-3.5); Potassium 4.9 mEq/L (3.5-5.1); Protein, Total 6.9 g/dL (6.4-8.2)
[2024-02-20 19:52] LABS: Anisocytosis 1+; Blood Morphology Comment NOTED (NOT SEEN); Platelet Estimate ADEQ; White Blood Cell Scan OK (OK)
--- NOTE | 2024-02-20 20:18 | RAD REPORT ---
EXAMINATION: XR Foot Left 3 View CLINICAL INDICATION: Male, 78 years old[address] [facility] MAIN PAIN Bed Name: 20 TECHNIQUE: 3 view radiographs of the left foot were obtained. COMPARISON: 12/26/2023. FINDINGS: Stable findings of amputation at the level of the head of the great toe proximal phalanx. T hird digit distal phalanges also show attenuated appearance, could be previously amputated. Mild deformity involving the distal second digit phalanges, stable in appearance. No new osseous destructi ve changes or fracture. No periosteal reaction. Scattered mild degenerative changes, with no evidence of other focal bone lesion. Soft tissues show diffuse swelling along the dorsum of the foot. Vascular calcifications IMPRESSION: No acute osseous abnormalities. Dorsal soft tissue swelling. Chronic findings as above..
--- NOTE | 2024-02-20 21:26 | ER ---
Nurse's Notes [facility] Michelle Name: Ely Coley Age: 78 yrs Sex: Male : 1945 Arrival Date: 02/20/2024 Time: 18:05 Bed 20 Private MD: Diagnosis: Foot Laceration/ Open wound of foot-left heel;Hyperglycemia, unspecified;Nonhealing wound to coccyx Presentation: 02/19 18:14 Chief complaint: EMS states: wound to left heel with swelling and pain to left foot. me1 Edema to BLE. Tripped and fell when getting ready to come to the ER and called EMS for assist. Denies pain from fall. Pain to left foot 11/17. ST to right elbow from fall today, dressed by EMS. Coronavirus screen: Vaccine status: Patient reports receiving the 2nd dose of the covid vaccine. Ebola Screen: No symptoms or risks identified at this time. Initial Sepsis Screen: Does the patient meet any 2 criteria? No. Patient's initial sepsis screen is negative. Risk Assessment: Do you want to hurt yourself or someone else? Patient reports no desire to harm self or others. Onset of symptoms was February 16, 2023. 18:14 Method Of Arrival: EMS: [facility] va1 18:14 Acuity: MITCH 3 me1 22:10 Initial Sepsis Screen: Does the patient have a suspected source of infection?. me1 Triage Assessment: 18:16 General: Appears uncomfortable, well groomed, well developed, well nourished, Behavior me1 is calm, cooperative, appropriate for age. Pain: Complains of pain in left foot Pain does not radiate. Pain currently is 10 out of 10 on a pain scale. Quality of pain is described as aching, Pain began 2-3 days ago. Is continuous. EENT: No signs and/or symptoms were reported regarding the EENT system. Neuro: Level of Consciousness is awake, alert, obeys commands, Oriented to person, place, time, situation, Appropriate for age. Cardiovascular: Patient's skin is warm and dry. Respiratory: Airway is patent Trachea midline Respiratory effort is even, unlabored, Respiratory pattern is regular, symmetrical. GI: No signs and/or symptoms were reported involving the gastrointestinal system. : No signs and/or symptoms were reported regarding the genitourinary system. Derm: Skin is healthy with good turgor, Skin is normal. Derm: Wound noted heel of left foot Wound is boggy, blister, intact. Musculoskeletal: Reports pain in left foot. Historical: - Allergies: 18:16 Glucophage; me1 18:16 metformin; me1 18:16 steroids; me1 - PMHx: 18:16 Atrial fibrillation; Dementia; diabetes mellitus; Hypertensive disorder; me1 hyperthyroidism; - PSHx: 18:16 Pacemaker placement and replacement; toe amputation bilat; me1 - Immunization history:: Adult Immunizations up to date. - Infectious Disease History:: Denies. - Social history:: Smoking status: Patient reports the use of cigarette tobacco products, denies chronic smoking, but will smoke occasionally, cigars. Screenin:19 [facility] ED Fall Risk Assessment (Adult) History of falling in the last 3 months, me1 including since admission Yes- single mechanical fall (1 pt) Confusion or Disorientation No (0 pts) Intoxicated or Sedated No (0 pts) Impaired Gait Yes (1 pt) Mobility Assist Device Used Yes (1 pt) Altered Elimination No (0 pt) Score/Fall Risk Level 3 or more points = High Risk Maintained a safe environment, Hourly rounding (assess needs \T\ fall precautionary measures) done, Used ambulatory aids as needed (educated on \T\ assisted with). Abuse screen: Denies threats or abuse. Nutritional screening: No deficits noted. Tuberculosis screening: No symptoms or risk factors identified. Assessment: 18:19 General: See triage assessment.. me1 18:31 EENT: Nares with bleeding noted on right. me1 Vital Signs: 18:14 BP 118 / 61; Pulse 55; Resp 16; Temp 98.3; Pulse Ox 98% on R/A; Weight 97.98 kg; Height me1 6 ft. 0 in. ; Pain 10/10; 19:00 BP 108 / 55; Pulse 64; Resp 17; Pulse Ox 100% ; me1 20:00 BP 130 / 78; Pulse 72; Resp 15; Pulse Ox 100% ; me1 21:00 BP 118 / 62; Pulse 72; Resp 16; Pulse Ox 100% ; me1 22:00 BP 137 / 75; Pulse 92; Resp 16; Temp 98.2; Pulse Ox 100% ; me1 18:14 Body Mass Index 29.29 (97.98 kg, 182.88 cm) me1 18:14 Pain Scale: Adult va1 ED Course: 18:13 Patient arrived in ED. me1 18:16 Triage completed. me1 18:16 Arm band placed on Patient placed in an exam room. me1 18:19 Patient has correct armband on for positive identification. Bed in low position. Call me1 light in reach. Side rails up X2. Provided Education on: POC. Verbalized understanding.. Client placed on continuous cardiac and pulse oximetry monitoring. NIBP monitoring applied. Pulse ox on. NIBP on. 18:19 No provider procedures requiring assistance completed. me1 18:24 Caty Correa FNP-C is PHCP. kb 18:24 Jerome Morales MD is Attending Physician. kb 18:31 Alejandrina Benton, JUDSON is Primary Nurse. me1 18:46 CMP Sent. me1 18:46 CBC with Diff Sent. me1 18:46 Initial lab(s) drawn, by va, sent to lab. Inserted saline lock: 22 gauge in left [facility] antecubital area, using aseptic technique. 19:25 Foot Left 3 View XRAY In Process Unspecified. EDMS 21:26 Shawn Melissa MD is Hospitalizing Provider. kb 21:43 First set of blood cultures drawn by va. me1 21:47 Blood Culture Adult (2) Sent. me1 21:59 Second set of blood cultures drawn by va. me1 22:10 Patient admitted, IV remains in place. me1 Administered Medications: 18:34 Drug: Sahil-Synephrine Intranasal [place] 0.5 % 2 sprays Intranasal once Route: Intranasal; va1 Site: right nare; 18:46 Follow up: Response: No adverse reaction; Other; Other: nose bleed stopped. me1 22:03 Drug: vancoMYCIN IVPB 1 grams IVPB once over 2 hrs Route: IVPB; Infused Over: 2 hrs; va1 Site: left antecubital; 22:10 Follow up: IV Status: Infusion continued upon admission me1 Medication: 18:19 VIS not applicable for this client. me1 Outcome: 21:26 Decision to Hospitalize by Provider. kb 22:10 Admitted to Med/surg accompanied by tech, via wheelchair, room 230, with chart, Report me1 called to faxed, receipt confirmed with Rodrigo 22:10 Condition: stable 22:10 Instructed on the need for admit, 23:13 Patient left the ED. me1 Signatures: Dispatcher [employer] Caty Winslow, MARKY-C CERTIFIED REGISTERED DENTAL ASSISTANT-Alejandrina Luke, RN RN me1
--- NOTE | 2024-02-20 21:26 | EDPHYS ---
Physician Documentation [facility] Name: Ely Coley Age: 78 yrs Sex: Male : 1945 Arrival Date: 02/20/2024 Time: 18:05 Bed 20 Private MD: ED Physician Jerome Morales HPI: 02/19 18:44 This 78 yrs old Male presents to ER via EMS with complaints of Wound Check, Fall Injury.kb 18:44 Pt is an 78 year old male who presents for wound, pain and swelling to left heel that kb started last night. Denies fever. Pt developed nosebleed just after arrival. States he had one last night as well. . Historical: - Allergies: 18:16 Glucophage; me1 18:16 metformin; me1 18:16 steroids; me1 - PMHx: 18:16 Atrial fibrillation; Dementia; diabetes mellitus; Hypertensive disorder; me1 hyperthyroidism; - PSHx: 18:16 Pacemaker placement and replacement; toe amputation bilat; me1 - Immunization history:: Adult Immunizations up to date. - Infectious Disease History:: Denies. - Social history:: Smoking status: Patient reports the use of cigarette tobacco products, denies chronic smoking, but will smoke occasionally, cigars. ROS: 18:43 Constitutional: As per HPI kb Exam: 18:43 Constitutional: This is a well developed, well nourished patient who is awake, alert, kb and in no acute distress. Head/Face: Normocephalic, atraumatic. ENT: Moist Mucous membranes Cardiovascular: Regular rate Respiratory: Respirations even and unlabored. No increased work of breathing. Talking in full sentences Abdomen/GI: Soft, non-tender. No distention Skin: Warm, dry with normal turgor. Normal color. Neuro: Awake and alert, GCS 15, oriented to person, place, time, and situation. 18:43 ENT: Nose: bleeding, 18:43 Musculoskeletal/extremity: Extremities: grossly normal except: noted in the heel of left foot: blister, tenderness, ROM: intact in all extremities, Circulation is intact in all extremities. Sensation intact. Weight bearing: able to fully bear weight, 21:31 Skin: wound to coccyx with yellow drainage. kb Vital Signs: 18:14 BP 118 / 61; Pulse 55; Resp 16; Temp 98.3; Pulse Ox 98% on R/A; Weight 97.98 kg; Height me1 6 ft. 0 in. ; Pain 10/10; 19:00 BP 108 / 55; Pulse 64; Resp 17; Pulse Ox 100% ; me1 20:00 BP 130 / 78; Pulse 72; Resp 15; Pulse Ox 100% ; me1 21:00 BP 118 / 62; Pulse 72; Resp 16; Pulse Ox 100% ; me1 22:00 BP 137 / 75; Pulse 92; Resp 16; Temp 98.2; Pulse Ox 100% ; me1 18:14 Body Mass Index 29.29 (97.98 kg, 182.88 cm) me1 18:14 Pain Scale: Adult me1 MDM: 18:24 Medical Screening Exam initiated kb 18:45 Data reviewed: vital signs, nurses notes. Historians other than the Patient: jemal Spouse/Significant Other: . 21:31 Differential diagnosis: open wound, cellulitis, abscess. Consideration of kb Admission/Observation Patient was admitted/placed on observation. Escalation of care including admission/observation considered. Management of patient was discussed with the following: Hospitalist: Dr Melissa accepts pt for admissin. Counseling: I had a detailed discussion with the patient and/or guardian regarding the historical points, exam findings, and any diagnostic results supporting the discharge/admit diagnosis, lab results, radiology results, the need for further work-up and treatment in the hospital. ED course: states pt has had wound to coccyx since discharge on 02/04. States he was given 5 days of abx without improvement. . 02/19 18:28 Order name: CBC with Diff; Complete Time: 19:56 kb 02/19 18:28 Order name: CMP; Complete Time: 19:16 kb 02/19 19:03 Order name: CBC Smear Scan; Complete Time: 19:56 EDMS 02/19 21:26 Order name: Blood Culture Adult (2) 02/19 21:46 Order name: Urinalysis w/ reflexes EDAK 02/19 21:46 Order name: CBC with Automated Diff EDMS 02/19 21:46 Order name: CBC with Automated Diff EDMS 02/19 21:46 Order name: Comprehensive Metabolic Panel EDMS 02/19 21:46 Order name: Comprehensive Metabolic Panel EDAK 02/19 18:28 Order name: Foot Left 3 View XRAY; Complete Time: 20:33 kb 02/19 18:28 Order name: IV Start; Complete Time: 18:46 kb Administered Medications: 18:34 Drug: Sahil-Synephrine Intranasal [place] 0.5 % 2 sprays Intranasal once Route: Intranasal; me1 Site: right nare; 18:46 Follow up: Response: No adverse reaction; Other; Other: nose bleed stopped. me1 22:03 Drug: vancoMYCIN IVPB 1 grams IVPB once over 2 hrs Route: IVPB; Infused Over: 2 hrs; me1 Site: left antecubital; 22:10 Follow up: IV Status: Infusion continued upon admission me1 Disposition: 02/20 09:11 Co-signature as Attending Physician, Jerome Morales MD I reviewed the patient's care rn provided by the Advanced Practice Provider and agree with the diagnosis and treatment plan. Disposition Summary: 02/20/24 21:26 Hospitalization Ordered Notes: Hospitalization Status: Observation kb Provider: Shawn Melissa Location: Telemetry/MedSurg (observation) kb Condition: Stable kb Problem: new kb Symptoms: are unchanged kb Bed/Room Type: Standard Room Assignment: 230(02/20/24 21:48) rv1 Diagnosis - Foot Laceration/ Open wound of foot - left heel kb - Hyperglycemia, unspecified kb - Nonhealing wound to coccyx kb Forms: - Medication Reconciliation Form kb - SBAR form kb - Leadership Thank You Letter kb Signatures: Dispatcher [employer] EDAK Caty Correa, TOP FORMER-C TOP FORMER-Ckb Jerome Morales MD MD rn Villegas, Rebecca rv1 Alejandrina Benton RN RN me1 Corrections: (The following items were deleted from the chart) 02/19 18:28 18:28 Foot Left 3 View+RAD.RAD.BRZ ordered. [facility] EDAK 21:48 21:26 kb rv1
--- NOTE | 2024-02-20 21:35 | P.HP ---
Certification for Inpatient Patient admitted to: Inpatient With expected LOS: >2 Midnights Practitioner: I am a practitioner with admitting privileges, knowledge of patient current condition, hospital course, and medical plan of care. Services: Services provided to patient in accordance with Admission requirements found in Title 42 Section 412.3 of the Code of Federal Regulations Patient History Date of Service: 02/21/24 Reason for admission: Leg wound History of Present Illness: 78 yrs old Male with a past medical history significant for A-fib on Eliquis, DM [id number], dementia, hypothyroidism, and chronic cellulitis of bilateral lower extremities and hypertension presented to the emergency room for wound check. He complains of pain and swelling of left heel wound which has not been healing well. Denies any fever or chills. He was treated with antibiotics previously without much benefits. Denies any chest pain or shortness of breath. Denies any nausea vomiting or diarrhea. The patient was assessed in the ER and was admitted for further management of left foot cellulitis Allergies metformin [From Glucophage] Allergy (Verified 10/30/23 05:21) Shortness of breath metoprolol Adverse Reaction (Verified 10/30/23 05:21) Shortness of breath steroids Allergy (Unknown, Uncoded 06/19/20 11:25) Unknown Home medications list reviewed: Yes Home Medications: Amiodarone HCl [Cordarone*] 200 mg PO DAILY 10/19/17 Apixaban [Eliquis *] 2.5 mg PO BID 10/19/17 Sertraline HCl 25 mg PO DAILY 05/27/21 Levothyroxine Sodium [Levo-T] 25 mcg PO [id number] 10/30/23 Liothyronine Sodium [Cytomel] 5 mcg PO [id number] 10/30/23 Gabapentin 100 mg PO TID 12/26/23 Apixaban [Eliquis *] 2.5 mg PO BID 02/03/24 Benzonatate [Tessalon Perle] 100 mg PO TID 10 Days #20 cap 02/03/24 Ensure High Protein 237 ml PO BID PRN 30 Days #1 pkg 02/03/24 Furosemide [Lasix] 40 mg PO 30 MIN BEFORE HS 30 Days #30 mg 02/03/24 Albuterol Neb [Proventil 0.083% Neb Soln] 2.5 mg NEB [id number] PRN #60 amp 02/05/24 Insulin Glargine,Hum.rec.anlog [Semglee] 15 unit SQ DAILY #2 vial 02/05/24 Dickson [Dickson*] 1 pkt PO BID #60 packet 02/05/24 Spironolactone [Aldactone*] 50 mg PO DAILY #60 tab 02/05/24 Furosemide [Lasix*] 40 mg PO BID 02/21/24 Potassium Chloride 20 meq PO DAILY 02/21/24 - Past Medical/Surgical History Diabetic: Yes Past Medical History: Reviewed- Non-Contributory -: History CVA -: Atrial fibrillation now with pacemaker -: DM -: chronic b/l LE cellulitis -: PVD -: GERD -: Moderate pulmonary hypertension -: CHF, diastolic dysfunction -: hypothyroidism -: dementia Past Surgical History: Reviewed- Non-Contributory -: R. total knee replacement -: kristian. cataract sx -: Right thigh staph inf. -: L. big toe amputated -: Back sx -: L big toe partial amputation Psychosocial/ Personal History: The patient is . - Family History Mother -: Heart disease Father -: Heart disease Brother -: Heart disease, Hypertension, Diabetes, Cancer - Social History Smoking Status: Current some day smoker Alcohol use: No CD- Drugs: No Caffeine use: Yes Review of Systems 10-point ROS is otherwise unremarkable Physical Examination - Vital Signs Temperature: 98.3 F Blood Pressure: 118/70 Pulse: 55 Respirations: 18 Pulse Ox (%): 94 - Physical Exam General: Alert, In no apparent distress, Oriented x3 HEENT: Atraumatic, Normocephalic Neck: Supple Respiratory: Clear to auscultation bilaterally, Normal air movement Cardiovascular: Regular rate/rhythm, Normal S1 S2 Capillary refill: <2 Seconds Gastrointestinal: Soft and benign, W/out hepatosplenomegaly Musculoskeletal: No clubbing, Swelling, Tenderness Integumentary: Tenderness/swelling, Erythema, Diabetic ulcer Neurological: Other (Alert, Awake ) Lymphatics: No axilla or inguinal lymphadenopathy - Studies Laboratory Data (last 24 hrs) 02/20/24 02/20/24 18:44 18:44 WBC 8.30 Hgb 8.3 L Hct 25.8 L Plt Count 181 Sodium 134 L Potassium 4.9 BUN 85 H Creatinine 2.47 H Glucose 294 H Total Bilirubin 0.5 AST 15 ALT 25 Alkaline Phosphatase 163 H Assessment and Plan - Plan Left foot cellulitis Pain control Started on IV antibiotic Wound care consulted Previous cultures grew MSSA chronic CHF diastolic Monitor closely on telemetry Continue home medications Titrate as needed Atrial fibrillation Will monitor under telemetry Rate controlled at this time Continue amiodarone Hypertension Antihypertensives titrated Continue home medications and titrate as needed Diabetes Insulin sliding scale Accu-Chek before every meal and at bedtime Anemia of chronic disease Monitor H&H closely No overt bleeding at this time Acute kidney injury on CKD stage II Renal parameters monitor Electrolytes monitor and replace accordingly GI/DVT prophylaxis Advanced directive full code Discharge Plan: Home Plan to discharge in: 48 Hours - Advance Directives Does patient have a Living Will: No Does patient have a Durable POA for Healthcare: No - Code Status/Comfort Care Code Status: Full Code Time Spent Managing Pts Care (In Minutes): 48
[2024-02-20] MEDS ORDERED: ONDANSETRON 4 MG/2 ML VIAL IV PRN (21:37)
[2024-02-20] MEDS ORDERED: ACETAMINOPHEN 325 MG TABLET PO PRN (21:37)
[2024-02-20] MEDS ORDERED: VANCOMYCIN 1 GM in NA CHLORIDE 0.9% 250 ML IVPB SCH (21:45)
[2024-02-20] MEDS ORDERED: NA CHLORIDE 0.9% 250 ML ONE (21:49)
[2024-02-20] MEDS ORDERED: VANCOMYCIN 1 GM/VIAL ONE (21:49)
[2024-02-20] MEDS ORDERED: VANCOMYCIN 750 MG in NA CHLORIDE 0.9% 150 ML IVPB ONE (22:30)
[2024-02-20] MEDS: VANCOMYCIN 750 MG in NA CHLORIDE 0.9% 250 ML IVPB ONE (23:15)
[2024-02-21 00:48] LABS: Urine Bilirubin NEGATIVE (Negative); Urine Blood Negative (Negative); Urine Clarity Clear (Clear); Urine Color Light-Yellow (Yellow); Urine Glucose 2+ (Negative); Urine Ketones NEGATIVE (Negative); Urine Microscopic Reflex YN NO UMIC; Urine Nitrite NEGATIVE (Negative); Urine Protein NEGATIVE (Negative); Urine Urobilinogen Normal (Normal)
[2024-02-21 04:47] LABS: Absolute Basophils 0.1 K/uL (0-0.5); Absolute Eosinophils 0.2 K/uL (0-0.5); Absolute Lymphocytes (CBC) 1.4 K/uL (0.7-4.9); Absolute Monocytes 1.4 K/uL (0.1-1.3); Absolute Neutrophil 4.8 K/uL (1.8-8.0); Basophils % 0.8 % (0-1.3); Hematocrit 26.3 % (39.6-49.0); Hemoglobin 8.5 g/dL (13.6-17.9); Lymphocytes % 17.7 % (15.3-44.8); MCH 28.4 pg (27.0-35.0); MCHC 32.3 g/dL (32.0-36.0); MCV 87.8 fL (80-100); MPV 7.5 fL (7.6-11.3); Monocytes % 17.1 % (3.3-12.3); Neutrophils % 61.4 % (41.7-73.7); Nucleated Red Blood Cells % 0.1 % (0-0); Platelets 177 thou/uL (152-406)
[2024-02-21 04:48] LABS: Red Cell Distribution Width 21.6 % (12.1-15.2)
[2024-02-21 04:54] LABS: Albumin 2.6 g/dL (3.4-5.0); Albumin/Globulin Ratio 0.6 (1.1-1.8); Anion Gap 9.5 mEq/L (5.0-15.0); Bilirubin Total 0.6 mg/dL (0.2-1.0); Globulin 4.5 g/dL (2.3-3.5); Potassium 4.5 mEq/L (3.5-5.1); Protein, Total 7.1 g/dL (6.4-8.2)
[2024-02-21] MEDS: ENOXAPARIN 30 MG/0.3 ML SQ SCH (08:22)
[2024-02-21] MEDS: CEFTRIAXONE 1,000 MG in NA CHLORIDE 0.9% 50 ML IVPB SCH (08:23)
[2024-02-21] MEDS: MORPHINE 2 MG/ML SYR IV PRN (13:10)
[2024-02-21] MEDS ORDERED: GLUCAGON 1 MG/VIAL IM PRN (17:29)
[2024-02-21] MEDS ORDERED: D10W 125 ML IV PRN (17:29)
[2024-02-21] MEDS: Oxycodone HCl/Acetaminophen 5/325 MG TAB PO PRN (18:46)
--- NOTE | 2024-02-21 18:56 | P.PN ---
Subjective Date of Service: 02/21/24 Chief Complaint: Leg wound Patient is complaining of severe pain in the left heel wound. He has had no fever since admission. Patient has chronic bilateral lower extremity venous stasis dermatitis, with chronic redness and hemosiderin staining. He reports no changes in his lower extremity redness. Physical Examination - Vital Signs Temperature: 97.4 F Blood Pressure: 109/55 Pulse: 63 Respirations: 18 Pulse Ox (%): 100 - Studies Laboratory Data (last 24 hrs) 02/20/24 02/20/24 18:44 18:44 WBC 8.30 Hgb 8.3 L Hct 25.8 L Plt Count 181 Sodium 134 L Potassium 4.9 BUN 85 H Creatinine 2.47 H Glucose 294 H Total Bilirubin 0.5 AST 15 ALT 25 Alkaline Phosphatase 163 H Assessment And Plan - Plan Physical examination General: Alert and oriented x3, NAD, HEENT: Conjunctiva not pale, anicteric sclera Neck: Supple, no elevated JVD Heart: Heart sounds 1 and 2 normal, regular rhythm, normal rate, no pedal edema Lungs: Clear to auscultation bilaterally, adequate breath sounds bilaterally, no rhonchi or crackles. Abdomen: Soft, nondistended, nontender, normal bowel sounds. Extremities: Tenderness -left heel, bilateral lower extremity swelling. Skin: Venous stasis dermatitis with hemosiderin staining of bilateral lower extremities. [place] shaped wound with eschar-left heel, shallow ulcer at the medial aspect of the base of the left hallux. Neuro: No focal motor deficit. Normal speech. Psychiatry: Normal mood, no agitation. Assessment and plan Left heel ulcer Left hallux ulcer Patient with pain and tenderness out of proportion to ulcers on the left foot. Concern for fluid collection/necrosis deeper to the ulcers. Aggressive IV antibiotics General Surgery consulted, patient evaluated by Dr. Mayer who recommended MRI of the foot. Patient has a pacemaker, MRI compatibility unknown. Patient also has CKD with EGFR less than 30 precluding IV contrast use. Will obtain CT of the foot without contrast to evaluate for fluid collection. Patient may need bone scan to rule out osteomyelitis. Dr. Mayer is considering I&D pending CT foot result. Analgesics as needed Local wound care. Chronic diastolic heart failure Bilateral lower extremity venous stasis dermatitis Bilateral lower extremity hemosiderin staining. Cellulitis not likely. Continue home medications Chronic atrial fibrillation Continue amiodarone Eliquis is on hold for impending surgery. Diabetes mellitus type II Insulin sliding scale Accu-Chek before every meal and at bedtime Start Lantus insulin. Anemia of chronic disease Monitor H&H closely and transfuse as needed for hemoglobin less than 7 Acute kidney injury on CKD stage 3 Monitor renal function with diuresis Nephrology consult. DVT prophylaxis: Pamelashawn is on hold for pending surgery. Advanced directive: Full code
[2024-02-21] MEDS: FUROSEMIDE 40 MG TABLET PO SCH (20:00)
[2024-02-21] MEDS: GABAPENTIN 100 MG CAP PO SCH (20:28)
[2024-02-21] MEDS: INSULIN REGULAR (HUMAN) 100 UNIT/ML SQ SCH (20:28)
--- NOTE | 2024-02-21 21:04 | RAD REPORT ---
EXAMINATION: CT LEFT FOOT WITHOUT CONTRAST CLINICAL INDICATION: Male, 78 years old.[facility] Right heel ulcer r/o abscess TECHNIQUE: CT of the left foot was performed, without IV contrast, as per department protocol. Axial, sagittal and coronal reconstructions were obtained. One or more of the following dose reduction techniques were used: Automated exposure control, adjustment of the mA and/or kV according to patient size, and/or iterative reconstruction. Unless otherwise specified, incidental findings do not require dedicated imaging follow-up. COMPARISON: Left foot radiographs 02/20/2024. FINDINGS: The lack of intravenous contrast limits the sensitivity of this exam for evaluation of solid visceral organs, vascular structures, and retroperitoneum. MUSCULOSKELETAL: Diffuse osteopenia somewhat limits evaluation. No acute fracture or dislocation. Seq uelae of amputation of the great toe at the level of the head of the distal phalanx. Truncated appearance of the third digit, absent distal phalanx and head of the middle phalanx, may also relate to sequelae of prior amputation. Is atrophic changes of the deep muscles of the foot. SOFT TISSUES: Soft tissue irregularity and possible wound at the tip of the second digit. Similar kanchan nges of the first digit amputation stump. Soft tissue thickening at the level of the medial. No discrete soft tissue defect or evidence of soft tissue gas. No appreciable fluid collections within l imits of noncontrast evaluation. Diffuse soft tissue swelling about the foot and ankle most pronounced at the dorsum. Vascular calcifications. JOINTS: No erosions. Mild scattered midfoot degenerative changes. ADDITIONAL FINDINGS: None. IMPRESSION: No acute or suspicious osseous abnormalities Soft tissue changes as above, suggesting wounds along the heel, tip of the first, and third digits, w ithout soft tissue gas. No appreciable fluid collections within limits of noncontrast evaluation.
[2024-02-21] MEDS: JUVEN PACKET PO SCH (21:06)
--- NOTE | 2024-02-21 22:08 | CON ---
Date of Consultation: 02/21/2024 Reason For Consultation: Left foot pain. History Of Present Illness: The patient is an 78-year-old gentleman with multiple medical problems w ho presented with pain and swelling of the left heel and he has a wound of the left foot that has not been healing. He denies any fever or chills. He denies any purulent discharge. No inguinal lympha denopathy. He denies any sore throat, runny nose, cough, headaches, dizziness, chest pain, fever, or chills. Review of Systems: Otherwise unremarkable. Past Medical History: Significant for a history of stroke, atrial fibrillation, diabetes, chronic bi lateral lower extremity cellulitis, peripheral vascular disease, GERD, pulmonary hypertension, CHF wi th diastolic dysfunction, hypothyroidism and mild dementia. Past Surgical History: Pacemaker, right total knee replacement, bilateral cataract surgery, right th igh I and D, left big toe partial amputation, back surgery. Allergies: INCLUDE METFORMIN, METOPROLOL, AND STEROIDS. Social History: The patient smokes occasionally. Does not drink alcohol. Family History: Significant for heart disease, hypertension, unknown type of cancer and diabetes. Physical Examination: Vital Signs: Stable. He is currently afebrile. General: He is awake, alert, oriented x3. Head and neck: No masses. Chest: Clear. Heart: S1, S2. Abdomen: Soft. Extremities: Diminished dorsalis pedis and posterior tibial pulses. However, they are palpable but weak. On the left medial foot near the base of the first toe, there is an open wound approximately 1 .5 cm with some fibrin present. Mild tenderness on the heel. The patient has no visible open wound, however, it is very tender to palpation. No significant fluid that I can clinically appreciate. Ho wever, the patient is very large and it is difficult to ascertain any significant fluctuance based on the location. There is no significant warmth or erythema, but there is exquisite tenderness present there. The left foot x-ray does not show any evidence of osteo. There is some dorsal soft tissue s welling and some chronic findings. Laboratory Data: Reviewed. His white count was 8.3 on admission with chronic anemia 8.3 and 25.8 H and H, platelets of 181. Chemistry reviewed. His glucose is high. BUN is high at 80 and creatinine is 2.36. Assessment: An 78-year-old gentleman with multiple medical problems with chronic renal disease with peripheral vascular disease and acute pain in the left heel and a nonhealing wound with possible infe ction on the left foot. Recommendations: As the physical exam is not conclusive as to what the etiology of this patient's pa in, I would recommend getting a CT scan as the patient cannot go into the MRI here because of the pac emaker. Once we get the CT scan, we will make a determination whether patient needs any kind of inte rvention if he should have a fluid collection or possibly even a foreign body that was not visible on the x-ray and we will make further recommendation after the CT is done. We will continue patient on antibiotics for the time being. Please note, discussed the case with Dr. Soares. AMBER/AZEB Voice ID: [id number] Report ID: [id number]
[2024-02-22 06:22] LABS: Absolute Basophils 0.1 K/uL (0-0.5); Absolute Eosinophils 0.2 K/uL (0-0.5); Absolute Lymphocytes (CBC) 1.3 K/uL (0.7-4.9); Absolute Monocytes 1.3 K/uL (0.1-1.3); Absolute Neutrophil 4.3 K/uL (1.8-8.0); Basophils % 0.7 % (0-1.3); Eosinophils % 3.3 % (0-4.4); Hematocrit 24.3 % (39.6-49.0); Hemoglobin 7.7 g/dL (13.6-17.9); Lymphocytes % 17.9 % (15.3-44.8); MCHC 31.8 g/dL (32.0-36.0); MCV 88.1 fL (80-100); MPV 7.6 fL (7.6-11.3); Monocytes % 17.6 % (3.3-12.3); Neutrophils % 60.5 % (41.7-73.7); Platelets 157 thou/uL (152-406); RBC Red Blood Cell Count 2.75 M/uL (4.33-5.43); Red Cell Distribution Width 21.5 % (12.1-15.2)
[2024-02-22 06:23] LABS: Anion Gap 7.6 mEq/L (5.0-15.0); Potassium 4.6 mEq/L (3.5-5.1)
[2024-02-22] MEDS: LEVOTHYROXINE SOD 0.025 MG TAB PO SCH (06:37)
[2024-02-22] MEDS: LIOTHYRONINE SOD 5 MCG TAB PO SCH (06:37)
[2024-02-22] MEDS: SPIRONOLACTONE 25 MG TABLET PO SCH (09:52)
[2024-02-22] MEDS: SERTRALINE HCL 50 MG TAB PO SCH (09:52)
[2024-02-22] MEDS: AMIODARONE HCL 200 MG TAB PO SCH (10:03)
[2024-02-22] MEDS ORDERED: VANCOMYCIN 1.75 GM in NA CHLORIDE 0.9% 500 ML IVPB SCH (11:00)
--- NOTE | 2024-02-22 12:13 | PN ---
Date of Progress Note: 02/22/2024 Subjective: The patient is awake, alert. He states that the left heel pain is little better. Objective: Vital Signs: Stable. He is afebrile. Extremities: Examination of the left heel reveals a blister which was debrided at the bedside and cu ltures are showing 3+ Staph coag positive from all the wound cultures that were done. Laboratory Data: Reviewed. His white count is normal. There is no left shift. CT of the foot revi ewed and it shows no evidence of osteo, no drainable fluid, no soft tissue gas. Assessment: Left foot wound with cellulitis and infection. Recommendation: Change the dressing to Santyl, dressing changes daily. Check the culture and sensit ivities and the patient can probably be discharged home on oral antibiotics. At that point, we could follow up the [facility] upon discharge. /MODL Voice ID: [id number] Report ID: [id number]
--- NOTE | 2024-02-22 13:25 | P.PN ---
Date of Service: 02/22/24 Subjective: no acute events overnight continues with heel pain, no significant change ROS: 10 point ROS as noted above, otherwise negative Physical Exam: GEN: Alert, oriented, NAD CV: Regular rate and rhythm, b/l edema Pulm: Nonlabored respirations on room air ABD: soft, nontender, nondistended Integumentary: [place] shaped wound with eschar-left heel, shallow ulcer at the medial aspect of the base of the left hallux. Venous stasis dermatitis with hemosiderin staining of bilateral lower extremities. Neuro: Normal speech, normal affect Problem List: Left heel/hallux ulcer Chronic diastolic heart failure Bilateral lower extremity venous stasis dermatitis Chronic a-fib on anticoagulation DARRELL on CKD3 IDDM2 Left heel/hallux ulcer on admission, presents with worsening left heel pain, tenderness. Denies fever/chills Concern for fluid collection/necrosis deeper to the ulcers. General Surgery consulted. Dr. Mayer recommended MRI of the foot. Patient has a pacemaker, MRI compatibility unknown. Xray Foot (02/19): noted dorsal soft tissues swelling otherwise negative. CT Left foot (02/20): Soft tissue changes as above, suggesting wounds along the heel, tip of the first, and third digits, without soft tissue gas. No appreciable fluid collections within limits of noncontrast evaluation Dr. Mayer reviewed imaging and recommended medical management with wound care, antibiotics. continue empiric rocephin / vanc (02/21-) f/u cultures Continue local wound care, pressure offloading measures Wound care: Santyl to the wound on the left foot daily with foam f/u wound healing center on discharge pain control Chronic diastolic heart failure Bilateral lower extremity venous stasis dermatitis Bilateral lower extremity hemosiderin staining. confirm home meds, restart as appropriate continue IV lasix, oral spironolactone Chronic a-fib on anticoagulation Continue amiodarone Eliquis held on admission for possible surgery DARRELL on CKD3 continue to monitor renal function Monitor and replete electrolytes as needed continue IV fluids IDDM2 accu-cheks, SSI confirm home insulin regimen VTE: Lovenox for now Code: Full Dispo: Home, ~2 days Time Spent Managing Pts Care (In Minutes): 55
[2024-02-22] MEDS: VANCOMYCIN 1.75 GM in NA CHLORIDE 0.9% 500 ML IVPB SCH (22:06)
[2024-02-23 06:03] LABS: Hematocrit 24.2 % (39.6-49.0); Hemoglobin 7.7 g/dL (13.6-17.9); MCHC 31.9 g/dL (32.0-36.0); MCV 87.7 fL (80-100); MPV 7.8 fL (7.6-11.3); Platelets 157 thou/uL (152-406); RBC Red Blood Cell Count 2.76 M/uL (4.33-5.43); Red Cell Distribution Width 21.4 % (12.1-15.2)
[2024-02-23 06:18] LABS: Anion Gap 6.6 mEq/L (5.0-15.0); Magnesium 2.2 mg/dL (1.6-2.4); Potassium 4.6 mEq/L (3.5-5.1)
[2024-02-23] MEDS: ENSURE HIGH PROTEIN 237 ML CAN PO PRN (09:07)
--- NOTE | 2024-02-23 11:03 | PN ---
Date of Progress Note: 02/23/2024 Subjective: The patient is awake, alert. States that he has no pain when his foot is up, but when h e steps on it, he does feel pain in that foot. He has improved since admission. His vitals are stab le, afebrile. Cultures reviewed. There are multiple organisms growing in different parts of the xi t as well as the sacrum. Objective: Examination shows no significant change. Dressing is clean, dry, intact. There is no er ythema. There is minimal tenderness present. Assessment: Infected wound in the left foot as well as sacrum. Recommendations: This patient has multiple organisms that are growing. We may need Infectious Disea se to help us guide which antibiotics to provide for this patient as he has multiple medical issues a s well, following which I would recommend IV antibiotics for at least 10 to 14 days and then we could switch to oral if the sensitivities are covered by an oral antibiotic. I will discuss this with the hospitalist team, following which, once the IV antibiotic is arranged, the patient can be discharged . Continue wound care as ordered. /MODL Voice ID: [id number] Report ID: [id number]
--- NOTE | 2024-02-23 11:57 | P.PN ---
Date of Service: 02/23/24 Subjective: no acute events overnight heel pain ~same afebrile ROS: 10 point ROS as noted above, otherwise negative Physical Exam: GEN: Alert, oriented, NAD CV: Regular rate and rhythm, b/l edema Pulm: Nonlabored respirations on room air Integumentary: left heel, shallow ulcer at the medial aspect of the base of the left hallux. Venous stasis dermatitis Problem List: Left heel/hallux ulcer Chronic diastolic heart failure Bilateral lower extremity venous stasis dermatitis Chronic a-fib on anticoagulation DARRELL on CKD3 IDDM2 Left heel/hallux ulcer on admission, presents with worsening left heel pain, tenderness. Denies fever/chills Concern for fluid collection/necrosis deeper to the ulcers. General Surgery consulted. Dr. Mayer recommended MRI of the foot. Patient has a pacemaker, MRI compatibility unknown. Xray Foot (02/19): noted dorsal soft tissues swelling otherwise negative. CT Left foot (02/20): Soft tissue changes as above, suggesting wounds along the heel, tip of the first, and third digits, without soft tissue gas. No appreciable fluid collections within limits of noncontrast evaluation Dr. Mayer reviewed imaging and recommended medical management with wound care, antibiotics. continue empiric rocephin / vanc (02/21-) wound cultures growing multiple organisms: E. coli, Klebsiella Pneumoniae, Staph Aureus, Proteus Vulgaris ID consulted Continue local wound care, pressure offloading measures Wound care: Santyl to the wound on the left foot daily with foam f/u wound healing center on discharge pain control Chronic diastolic heart failure Bilateral lower extremity venous stasis dermatitis Bilateral lower extremity hemosiderin staining. confirm home meds, restart as appropriate continue IV lasix, oral spironolactone Chronic a-fib on anticoagulation Continue amiodarone home Eliquis held on admission for possible surgery DARRELL on CKD3 continue to monitor renal function Monitor and replete electrolytes as needed continue IV fluids IDDM2 accu-cheks, SSI confirm home insulin regimen VTE: Lovenox for now Code: Full Dispo: Home, ~2 days may need IV abx for ~2 weeks states has gone home before with IV abx and " knows how to do it" Time Spent Managing Pts Care (In Minutes): 55
[2024-02-23] MEDS: COLLAGENASE 30 GM OINTMENT TOP SCH (16:22)
[2024-02-24 04:56] LABS: Hematocrit 26.1 % (39.6-49.0); Hemoglobin 8.3 g/dL (13.6-17.9); MCH 28.2 pg (27.0-35.0); MCHC 31.7 g/dL (32.0-36.0); MPV 7.4 fL (7.6-11.3); Platelets 158 thou/uL (152-406); RBC Red Blood Cell Count 2.94 M/uL (4.33-5.43)
[2024-02-24 05:21] LABS: Anion Gap 8.6 mEq/L (5.0-15.0); Magnesium 2.2 mg/dL (1.6-2.4); Potassium 4.6 mEq/L (3.5-5.1)
[2024-02-24] MEDS: APIXABAN 2.5 MG TABLET PO SCH (09:17)
--- NOTE | 2024-02-24 10:58 | P.PN ---
Date of Service: 02/24/24 Subjective: denies any new / worsening problems heel pain doesn't feel worse doesn't think she would be able to care for patient at home during this episode family agreeable to SNF ROS: 10 point ROS as noted above, otherwise negative Physical Exam: GEN: Alert, oriented, NAD CV: Regular rate and rhythm, 2+ b/l edema Pulm: Nonlabored respirations on room air Integumentary: left heel, shallow ulcer at the medial aspect of the base of the left hallux. Venous stasis dermatitis Problem List: Left heel/hallux ulcer Chronic diastolic heart failure Bilateral lower extremity venous stasis dermatitis Chronic a-fib on anticoagulation DARRELL on CKD3 IDDM2 Left heel/hallux ulcer on admission, presents with worsening left heel pain, tenderness. Denies fever/chills Concern for fluid collection/necrosis deeper to the ulcers. General Surgery consulted. Dr. Mayer recommended MRI of the foot. Patient has a pacemaker, MRI compatibility unknown. Xray Foot (02/19): noted dorsal soft tissues swelling otherwise negative. CT Left foot (02/20): Soft tissue changes = wounds along the heel, tip of the first, and third digits, without soft tissue gas. No appreciable fluid collections within limits of noncontrast evaluation Dr. Mayer reviewed imaging and recommended medical management with wound care, antibiotics. continue empiric rocephin / vanc (02/21-) wound cultures growing multiple organisms: E. coli, Klebsiella Pneumoniae, Staph Aureus, Proteus Vulgaris ID consulted - recommends rocephin x 2weeks, and topical wound to heel Continue local wound care, pressure offloading measures Wound care: Santyl to the wound on the left foot daily with foa f/u wound healing center on discharge pain control Chronic diastolic heart failure Bilateral lower extremity venous stasis dermatitis Bilateral lower extremity hemosiderin staining. continue oral lasix, oral spironolactone Chronic a-fib on anticoagulation Continue amiodarone home eliquis resumed 02/23 DARRELL on CKD3 continue to monitor renal function Monitor and replete electrolytes as needed IDDM2 accu-cheks, SSI confirm home insulin regimen VTE: home eliquis resumed 02/23 Code: Full Dispo: SNF, ~2 days may need IV abx for ~2 weeks doesn't feel she can take care of patient at home by herself. Agreeable to SNF managed services consultant consulted. Time Spent Managing Pts Care (In Minutes): 55
--- NOTE | 2024-02-24 18:11 | CON ---
History Of Present Illness: This is an 78-year-old male I was consulted for nonhealing wound and ant ibiotic recommendation. The patient was brought into the hospital with significant past medical hist ory of atrial fibrillation; diabetes mellitus, non-insulin dependent; dementia; hypothyroidism; chron ic cellulitis; bilateral lower extremity stasis dermatitis; edematous changes; hypertension, coming i n for wound evaluation. Denies any headache, nausea, vomiting, chest pain, abdominal pain, constipat ion, or diarrhea. Past Medical History: As per HPI. Social History: Nonsmoker, nondrinker. Family History: Noncontributory. Medications: Rocephin and vancomycin. See MAR for other medication. Allergies: METFORMIN AND METOPROLOL. Review of Systems: A 10-point review was performed. Physical Examination: General: This is an 78-year-old male sitting in bed. is by the bedside. Vital Signs: Temperature 97.7, pulse 68, respirations 14, blood pressure 121/57. HEENT: Unremarkable. Neck: Supple: Basal crackles. Heart: S1, S2. Regular. Abdomen: Soft, nontender. Bowel sounds present. Extremities: 3+ edema plus metatarsal medial aspect wound noted. Heel DTI and sacral coccyx stage I II wound also noted. Laboratory Data: Shows WBC 9.5, hemoglobin 8.3, platelets are 158. Chemistry shows BUN of 81, creat inine 2.3. Wound culture from the left heel is Proteus vulgaris and left toe is Staphylococcus aureu s. Sacral wound has E coli and Klebsiella pneumoniae. Assessment And Plan: An 78-year-old male with longstanding history of stasis dermatitis and chronic wounds especially involving the left first metatarsal medial aspect with Staphylococcus aureus. The patient is currently being treated with vancomycin, renal insufficiency. Left heel and sacrococcyx a sourav with Proteus vulgaris, E coli, and Klebsiella pneumonia. Multiorganism making it challenging to treat. We will recommend to continue current antibiotic. Consider acetic acid or Silvadene to the w ound site. Keep legs elevated. Diabetes mellitus, anemia of chronic disease, moderate protein-calor ie malnourishment, peripheral vascular disease, stasis dermatitis. CT scan showing negative for any osteomyelitis. We will recommend to continue antibiotic and local wound care for 2 weeks. Wound car e per surgical team. We will follow the patient as needed. NF/MODL Voice ID: [id number] Report ID: [id number]
[2024-02-24] MEDS: Mupirocin NASAL 2 APPL/1 GM TUBE NAS SCH (20:56)
[2024-02-25 01:46] VITALS: O2SAT 96
[2024-02-25 05:32] LABS: Anion Gap 9.2 mEq/L (5.0-15.0); Potassium 4.2 mEq/L (3.5-5.1)
--- NOTE | 2024-02-25 10:44 | P.PN ---
Date of Service: 02/25/24 Subjective: swelling and pain improving ROS: 10 point ROS as noted above, otherwise negative Physical Exam: GEN: Alert, oriented, NAD CV: Regular rate and rhythm, 2+ b/l edema Pulm: Nonlabored respirations on room air Integumentary: left heel, shallow ulcer at the medial aspect of the base of the left hallux. Venous stasis dermatitis Problem List: Left heel/hallux ulcer Chronic diastolic heart failure Bilateral lower extremity venous stasis dermatitis Chronic a-fib on anticoagulation DARRELL on CKD3 IDDM2 Left heel/hallux ulcer on admission, presents with worsening left heel pain, tenderness. Denies fever/chills Concern for fluid collection/necrosis deeper to the ulcers. General Surgery consulted. Dr. Mayer recommended MRI of the foot. Patient has a pacemaker, MRI compatibility unknown. Xray Foot (02/19): noted dorsal soft tissues swelling otherwise negative. CT Left foot (02/20): Soft tissue changes = wounds along the heel, tip of the first, and third digits, without soft tissue gas. No appreciable fluid collections within limits of noncontrast evaluation Dr. Mayer reviewed imaging and recommended medical management with wound care, antibiotics. continue empiric rocephin / vanc (02/21-) Sacral Wound cx (02/19): E. coli, Klebsiella Pneumoniae, Enterococcus Faecalis (VRE) Left Heel Wound cx (02/19): Proteus Vulgaris, Enterobacter Cloaecae, Staph Aureus Left Toe wound cx (02/19): Staph Aureus Enterococcus Faecalis (VRE) and Enterobacter Cloaecae resulted today (02/24) Continue IV rocephin and topical wound to heel for now ID consulted; will discuss further treatment with ID regarding newly resulted bacteria, multiple species. Continue local wound care, pressure offloading measures f/u wound healing center on discharge pain control midline ordered 02/23 Chronic diastolic heart failure Bilateral lower extremity venous stasis dermatitis Bilateral lower extremity hemosiderin staining. continue oral lasix, oral spironolactone Chronic a-fib on anticoagulation Continue amiodarone home eliquis resumed 02/23 DARRELL on CKD3 continue to monitor renal function Monitor and replete electrolytes as needed IDDM2 accu-cheks, SSI confirm home insulin regimen VTE: home eliquis resumed 02/23 Code: Full Dispo: SNF, ~2 days IV abx for ~2 weeks doesn't feel she can take care of patient at home by herself. Agreeable to SNF industrial services worker consulted. Time Spent Managing Pts Care (In Minutes): 55
[2024-02-25] MEDS: PNEUMOCOCCAL VACCINE 0.5 ML IMVAC ONE (15:00)
--- NOTE | 2024-02-25 17:59 | PN ---
Subjective: Patient is sitting in easy chair, not in any acute distress. Denies any headache, nause a, vomiting, chest pain, abdominal pain, constipation, or diarrhea. Has new bacterial growth from th e sacral coccyx area with Enterococcus faecalis. Also has E coli and Klebsiella pneumoniae. Left to e has staph aureus. Left heel has Proteus vulgaris and Enterobacter cloacae and Staph aureus. Objective: Vital Signs: Temperature 98, pulse 72, respirations 15, blood pressure 110/52. Lungs: Basal crackles. Heart: S1, S2. Regular. Abdomen: Soft, nontender. Bowel sounds present. Extremities: 3+ edema. Laboratory Data: Shows WBC 9.5, hemoglobin 8.3, platelets are 158. Chemistry shows BUN of 87, creat inine 2.25. The patient is currently on Rocephin and vancomycin. See MARs for other medications. Assessment/plan: We will recommend local wound care with Silvadene to decrease of bacterial burden a s the wounds are not significant enough to be treated more aggressively. We will continue local nicole tment and continue vancomycin and Rocephin. Continue wound care as per wound care team. We will fol low the patient as needed. NF/MODL Voice ID: [id number] Report ID: [id number]
[2024-02-26 06:31] LABS: MCH 28.4 pg (27.0-35.0); MCV 88.7 fL (80-100); MPV 7.6 fL (7.6-11.3); Platelets 165 thou/uL (152-406); RBC Red Blood Cell Count 2.82 M/uL (4.33-5.43)
[2024-02-26 06:44] LABS: Anion Gap 9.2 mEq/L (5.0-15.0); Magnesium 2.1 mg/dL (1.6-2.4); Potassium 4.2 mEq/L (3.5-5.1)
[2024-02-26 08:23] VITALS: BMI 4178.9
[2024-02-26] MEDS: CEFTRIAXONE 1000 MG/VIAL ONE (08:25)
[2024-02-26 14:22] VITALS: BP 105/55; TEMP 97.5
[2024-02-26] MEDS ORDERED: VANCOMYCIN 1.5 GM in NA CHLORIDE 0.9% 500 ML IVPB SCH (21:00)
--- NOTE | 2024-02-27 06:38 | P.DS ---
Admission Date: 02/20/24 Discharge Date: 02/26/24 Disposition: TRANSFER TO SNF - MEDICAL Discharge Condition: GOOD Reason for Admission: Leg wound Consultations: General surgery - Dr. Mayer Infectious Disease - Dr. Umanzor Brief History of Present Illness: 78yo M, PMH: A-fib on Eliquis, DM [id number], dementia, hypothyroidism, and chronic cellulitis of bilateral lower extremities and hypertension \ Patient presented to the emergency room for wound check. He complains of pain and swelling of left heel wound which has not been healing well. Denies any fever or chills. He was treated with antibiotics previously without much benefits. Denies any chest pain or shortness of breath. Denies any nausea vomiting or diarrhea. The patient was assessed in the ER and was admitted for further management of left foot cellulitis Hospital Course: Problem List: Left heel/hallux ulcer Chronic diastolic heart failure Bilateral lower extremity venous stasis dermatitis Chronic a-fib on anticoagulation DARRELL on CKD3 IDDM2 Physician discharge instructions: Patient presented with worsening left heel pain, tenderness secondary to infected left foot/heel pressure ulcer. Unable to obtain MRI to definitely rule out osteomyelitis given presence of pacemaker. Patient was evaluated by Dr. Mayer, general surgeon who recommended medical management with wound care, antibiotics. No evidence to warrant surgical intervention at this time. Xray foot noted dorsal soft tissues swelling otherwise negative. CT Left foot noted wounds along the heel, tip of the first, and third digits, without soft tissue gas. No appreciable fluid collections within limits of noncontrast evaluation. Patient received empiric rocephin and vancomycin while hospitalized and had improvement of his symptoms. Wound cultures grew multiple organisms: E. coli, Klebsiella Pneumoniae, Enterococcus Faecalis (VRE), Proteus Vulgaris, Enterobacter Cloaecae, Staph Aureus. These were obtained by superficial swab. No purulent drainage was ever noted. And skin had mild erythema. Case was discussed with Dr. Umanzor (infectious disease) who recommended 2 week course of IV rocephin in addition to local topical wound care with silvadene cream to decrease bacterial burden. In agreement that the wounds did not all appear infected and did not suspect all of these bacteria were causing infection. Midline was placed for IV antibiotics. Patient is to complete 2 weeks of IV rocephin (End date:03/06/24) Patient was feeling better, afebrile without leukocytosis, foot pain improving, and was deemed stable for discharge. Advised patient to follow up with Dr. Mayer at [facility] [place] in ~1 week for further management. In regards to his lower extremity edema, he was initially treated with IV Lasix and transitioned to his oral home regimen with continued improvement. Renal function remained stable, and blood pressure remained stable in the low-normal range. Continue regular home regimen of lasix 40mg twice daily. Continue to monitor swelling, and may need an occasional extra dose if doesn't continue to improve. Medications: IV rocephin 1gm q24h via midline (end date: 03/06/24) continue other home meds as previously prescribed Follow up: PCP 3-[address] Mayer at [facility] [place] in ~1 week Please call to schedule / confirm appointments Silvadene to all wounds daily Sacral Wound culture (02/19): E. coli, Klebsiella Pneumoniae, Enterococcus Faecalis (VRE) Left Heel Wound culture (02/19): Proteus Vulgaris, Enterobacter Cloaecae, Staph Aureus Left Toe wound culture (02/19): Staph Aureus Physical Exam: GEN: Alert, oriented, NAD CV: Regular rate and rhythm, no edema Pulm: Nonlabored respirations on room air Integumentary: left heel with dressing in place Venous stasis dermatitis Vital Signs/Physical Exam: Temp Pulse Resp BP Pulse Ox 97.5 F 71 15 105/55 L 97 02/26/24 12:00 02/26/24 12:00 02/26/24 12:00 02/26/24 12:00 02/26/24 12:00 Laboratory Data at Discharge: WBC 8.80 thou/uL (4.3-10.9) 02/26/24 05:46 Hgb 8.0 g/dL (13.6-17.9) L 02/26/24 05:46 Hct 25.0 % (39.6-49.0) L 02/26/24 05:46 Plt Count 165 thou/uL (152-406) 02/26/24 05:46 Sodium 136 mEq/L (136-145) 02/26/24 05:46 Potassium 4.2 mEq/L (3.5-5.1) 02/26/24 05:46 BUN 79 mg/dL (7-18) H 02/26/24 05:46 Creatinine 2.25 mg/dL (0.70-1.30) H 02/26/24 05:46 Glucose 161 mg/dL (74-106) H 02/26/24 05:46 Magnesium 2.1 mg/dL (1.6-2.4) 02/26/24 05:46 Total Bilirubin 0.6 mg/dL (0.2-1.0) 02/21/24 04:06 AST 13 U/L (15-37) L 02/21/24 04:06 ALT 23 U/L (16-61) 02/21/24 04:06 Alkaline Phosphatase 160 U/L (45-117) H 02/21/24 04:06 Home Medications: Amiodarone HCl [Cordarone*] 200 mg PO DAILY 10/19/17 Apixaban [Eliquis *] 2.5 mg PO BID 10/19/17 Sertraline HCl 25 mg PO DAILY 05/27/21 Levothyroxine Sodium [Levo-T] 25 mcg PO [id number] 10/30/23 Liothyronine Sodium [Cytomel] 5 mcg PO [id number] 10/30/23 Gabapentin 100 mg PO TID 12/26/23 Apixaban [Eliquis *] 2.5 mg PO BID 02/03/24 Benzonatate [Tessalon Perle*] 100 mg PO TID 10 Days #20 cap 02/03/24 Ensure High Protein 237 ml PO BID PRN 30 Days #1 pkg 02/03/24 Albuterol Neb [Proventil 0.083% Neb Soln] 2.5 mg NEB [id number] PRN #60 amp 02/05/24 Insulin Glargine,Hum.rec.anlog [Semglee] 15 unit SQ DAILY #2 vial 02/05/24 Dickson [Dickson*] 1 pkt PO BID #60 packet 02/05/24 Spironolactone [Aldactone*] 50 mg PO DAILY #60 tab 02/05/24 Furosemide [Lasix*] 40 mg PO BID 02/21/24 Potassium Chloride 20 meq PO DAILY 02/21/24 Oxycodone HCl/Acetaminophen [Percocet 5/325 Tab*] 1 tab PO Q4H PRN tab 02/26/24 Physician Discharge Instructions: Physician discharge instructions: Patient presented with worsening left heel pain, tenderness secondary to infected left foot/heel pressure ulcer. Unable to obtain MRI to definitely rule out osteomyelitis given presence of pacemaker. Patient was evaluated by Dr. Mayer, general surgeon who recommended medical management with wound care, antibiotics. No evidence to warrant surgical intervention at this time. Xray foot noted dorsal soft tissues swelling otherwise negative. CT Left foot noted wounds along the heel, tip of the first, and third digits, without soft tissue gas. No appreciable fluid collections within limits of noncontrast evaluation. Patient received empiric rocephin and vancomycin while hospitalized and had improvement of his symptoms. Wound cultures grew multiple organisms: E. coli, Klebsiella Pneumoniae, Enterococcus Faecalis (VRE), Proteus Vulgaris, Enterobacter Cloaecae, Staph Aureus. These were obtained by superficial swab. No purulent drainage was ever noted. And skin had mild erythema. Case was discussed with Dr. Umanzor (infectious disease) who recommended 2 week course of IV rocephin in addition to local topical wound care with silvadene cream to decrease bacterial burden. In agreement that the wounds did not all appear infected and did not suspect all of these bacteria were causing infection. Midline was placed for IV antibiotics. Patient is to complete 2 weeks of IV rocephin (End date:03/06/24) Patient was feeling better, afebrile without leukocytosis, foot pain improving, and was deemed stable for discharge. Advised patient to follow up with Dr. Mayer at wound healing center in ~1 week for further management. In regards to his lower extremity edema, he was initially treated with IV Lasix and transitioned to his oral home regimen with continued improvement. Renal func tion remained stable, and blood pressure remained stable in the low-normal range. Continue regular home regimen of lasix 40mg twice daily. Continue to monitor swelling, and may need an occasional extra dose if doesn't continue to improve. Medications: IV rocephin 1gm q24h via midline (end date: 03/06/24) continue other home meds as previously prescribed Follow up: PCP 3-[address] Mayer at wound healing center in ~1 week Please call to schedule / confirm appointments Silvadene to all wounds daily Sacral Wound culture (02/19): E. coli, Klebsiella Pneumoniae, Enterococcus Faecalis (VRE) Left Heel Wound culture (02/19): Proteus Vulgaris, Enterobacter Cloaecae, Staph Aureus Left Toe wound culture (02/19): Staph Aureus Followup: Jimenez Mayer MD [ACTIVE - CAN ADMIT] - 1 Week (Follow-up in the wound healing center in my clinic next Wednesday) Dulce Zimmerman NP [Primary Care Provider] - Time spent managing pt's care (in minutes): 45
== END 2024-02-26 14:44 | DRG 638 ==
LOC: ER 18:05 → ERHOLD 21:37 → 2ND 22:55
PROVIDERS: ADMIT Family Medicine; ATTEND Hospitalist
PROC: 02HV33Z Insertion of Infusion Device into Superior Vena Cava, Percutaneous Approach (ICD-10-PCS; principal; 2024-02-24)
DX: E11.621 Type 2 diabetes mellitus with foot ulcer (principal); E44.0 Moderate protein-calorie malnutrition; I13.0 Hypertensive heart and chronic kidney disease with heart failure and stage 1 through stage 4 chronic kidney disease, or unspecified chronic kidney disease; L03.116 Cellulitis of left lower limb; I50.32 Chronic diastolic (congestive) heart failure; L97.429 Non-pressure chronic ulcer of left heel and midfoot with unspecified severity; I48.20 Chronic atrial fibrillation, unspecified; N17.9 Acute kidney failure, unspecified; N18.30 Chronic kidney disease, stage 3 unspecified; E11.22 Type 2 diabetes mellitus with diabetic chronic kidney disease; E11.51 Type 2 diabetes mellitus with diabetic peripheral angiopathy without gangrene; E11.65 Type 2 diabetes mellitus with hyperglycemia; D63.1 Anemia in chronic kidney disease; E03.9 Hypothyroidism, unspecified; I87.2 Venous insufficiency (chronic) (peripheral); I87.8 Other specified disorders of veins; K21.9 Gastro-esophageal reflux disease without esophagitis; S91.312A Laceration without foreign body, left foot, initial encounter; F03.90 Unspecified dementia, unspecified severity, without behavioral disturbance, psychotic disturbance, mood disturbance, and anxiety; F17.210 Nicotine dependence, cigarettes, uncomplicated; Z95.0 Presence of cardiac pacemaker; Z88.8 Allergy status to other drugs, medicaments and biological substances; Z79.01 Long term (current) use of anticoagulants; Z89.421 Acquired absence of other right toe(s); Z89.422 Acquired absence of other left toe(s); Z79.4 Long term (current) use of insulin; Z79.899 Other long term (current) drug therapy; Z68.29 Body mass index [BMI] 29.0-29.9, adult; Z86.73 Personal history of transient ischemic attack (TIA), and cerebral infarction without residual deficits; Z96.651 Presence of right artificial knee joint; Z89.412 Acquired absence of left great toe; B96.20 Unspecified Escherichia coli [E. coli] as the cause of diseases classified elsewhere; B96.1 Klebsiella pneumoniae [K. pneumoniae] as the cause of diseases classified elsewhere; B95.61 Methicillin susceptible Staphylococcus aureus infection as the cause of diseases classified elsewhere; B96.4 Proteus (mirabilis) (morganii) as the cause of diseases classified elsewhere
CPT/HCPCS: 36415; 73700; 80048; 80053; 80202; 81003; 82947; 83735; 85025; 85027; 87040; 87070; 87077; 87186; 87205; 96374; 99285; J0696; J1650; J2270; J3590; J7040; J7050

== ENCOUNTER 2024-03-27 11:23 | Inpatient (IN) | payer OTHER ==
[2024-03-27 12:05] LABS: Absolute Lymphocytes (CBC) 0.4 K/uL (0.7-4.9); Absolute Monocytes 1.5 K/uL (0.1-1.3); Absolute Neutrophil 7.3 K/uL (1.8-8.0); Basophils % 0.3 % (0-1.3); Eosinophils % 0.3 % (0-4.4); Hematocrit 26.4 % (39.6-49.0); Hemoglobin 8.8 g/dL (13.6-17.9); Lymphocytes % 4.6 % (15.3-44.8); MCH 29.9 pg (27.0-35.0); MCHC 33.2 g/dL (32.0-36.0); MPV 7.5 fL (7.6-11.3); Monocytes % 16.3 % (3.3-12.3); Neutrophils % 78.5 % (41.7-73.7); Platelets 167 thou/uL (152-406); RBC Red Blood Cell Count 2.93 M/uL (4.33-5.43); Red Cell Distribution Width 20.8 % (12.1-15.2)
[2024-03-27 12:15] LABS: PT Prothrombin Time 17.5 SECONDS (9.4-12.5); PTT, Activated Partial Thromb 35.6 SECONDS (24.3-36.9); Protime INR 1.68
[2024-03-27 12:24] LABS: AST/SGOT 14 U/L (15-37); Albumin 2.5 g/dL (3.4-5.0); Albumin/Globulin Ratio 0.6 (1.1-1.8); Alkaline Phosphatase 137 U/L (45-117); Anion Gap 9.2 mEq/L (5.0-15.0); BUN Blood Urea Nitrogen 43 mg/dL (7-18); Bicarbonate 23 mEq/L (21-32); Bilirubin Total 0.5 mg/dL (0.2-1.0); Globulin 4.4 g/dL (2.3-3.5); Glomerular Filtration Rate 26 ml/min (=/>90); Glucose Level 97 mg/dL (74-106); Potassium 4.2 mEq/L (3.5-5.1); Protein, Total 6.9 g/dL (6.4-8.2); Sodium Level 139 mEq/L (136-145)
--- NOTE | 2024-03-27 12:32 | RAD REPORT ---
EXAM: CT Head Brain Wo Cont HISTORY: MENTAL STATUS CHANGE COMPARISON: 08/27/2015 TECHNIQUE: Multiple contiguous axial images were obtained for a CT of the brain without contrast. Sag ittal and coronal reformats were performed. One or more of the following dose reduction techniques were used: Automated exposure control, adjus tment of the mA and kV according to patient size, and iterative reconstruction. Unless otherwise specified, incidental findings do not require dedicated imaging follow-up. FINDINGS: No evidence of hydrocephalus, intracranial hemorrhage, or extra-axial fluid collection. Left occipital and mesial temporal encephalomalacia is stable. Scattered mild deep white matter hypo densities with mild diffuse parenchymal volume loss, stable nonspecific, may suggest sequelae of chronic small vessel ischemic changes. The calvarium is intact. The visualized paranasal sinuses and mastoid air cells are essentially clear . IMPRESSION: No evidence of acute intracranial abnormality. Stable chronic findings as above.
[2024-03-27 12:33] LABS: ALT/SGPT < 14 U/L (16-61)
--- NOTE | 2024-03-27 12:33 | RAD REPORT ---
EXAMINATION: ONE VIEW CHEST XR CLINICAL INDICATION: Male, 78 years old.,SOB TECHNIQUE: Frontal chest projection is submitted. Examination is limited by patient positioning and t echnique. COMPARISON: 02/03/2024 FINDINGS: Stable bibasilar airspace opacities more so on the right, with small effusions larger on the right. P rogressive central interstitial prominence and perihilar hazy opacities. No pneumothorax. The heart is upper limit of normal in size. Mediastinal contours are unremarkable. IMPRESSION: Progressive central interstitial prominence with otherwise stable findings, findings which may reflec t pulmonary edema or worsening pneumonia.
[2024-03-27] MEDS ORDERED: D50W 25 GM/50 ML SYRINGE IV ONE (13:00)
--- NOTE | 2024-03-27 13:07 | ER ---
Nurse's Notes [facility] Name: Ely Coley Age: 78 yrs Sex: Male : 1945 Arrival Date: 03/27/2024 Time: 11:23 Bed 6 Private MD: Diagnosis: Diabetes mellitus due to underlying condition with hypoglycemia without coma Presentation: 03/27 11:25 Chief complaint: EMS states: Called EMS for AMS, BGL 34, D10 given, last BGL 164, IV to ph RFA, hx of diabetes, does take Humalog. Coronavirus screen: Vaccine status: Patient reports being unvaccinated. Ebola Screen: No symptoms or risks identified at this time. Initial Sepsis Screen: Does the patient meet any 2 criteria?. Initial Sepsis Screen: Does the patient have a suspected source of infection? No. Patient's initial sepsis screen is negative. Risk Assessment: Do you want to hurt yourself or someone else? Patient reports no desire to harm self or others. Onset of symptoms was March 27, 2024. 11:25 Method Of Arrival: EMS: [facility] ph 11:25 Acuity: MITCH 3 ph Triage Assessment: 11:35 General: Appears in no apparent distress. comfortable. ph 11:36 General: Behavior is calm, cooperative. Pain: Complains of pain in buttocks. Neuro: ph Level of Consciousness is awake, alert, obeys commands, Oriented to person, place. Cardiovascular: Capillary refill < 3 seconds in bilateral fingers Patient's skin is warm and dry. Rhythm is atrial fibrillation. Respiratory: Airway is patent Respiratory effort is even, unlabored. GI: No signs and/or symptoms were reported involving the gastrointestinal system. Derm: Skin is normal. Derm: Wound noted skin tears and bruising to bilateral arms. 11:37 Cardiovascular: Edema is 3+ to left midcalf, left ankle, right midcalf and right ankle. ph Historical: - Allergies: 11:28 Glucophage; ph 11:28 metformin; ph 11:28 steroids; ph - Home Meds: 11:28 amiodarone 200 mg Oral tablet 1 tab daily [Active]; Eliquis 2.5 mg Oral tablet 1 tab 2 ph times per day [Active]; glipizide 5 mg Oral tablet daily [Active]; Humalog Mix 75-25(U-100)Insuln 100 unit/mL (75-25) Sub-Q suspension [Active]; levothyroxine 25 mcg tablet daily [Active]; liothyronine 25 mcg Oral tablet 1 tab daily [Active]; Plavix 75 mg Oral tablet 1 tab daily [Active]; sertraline 25 mg Oral tablet 1 tab daily [Active]; spironolactone 25 mg Oral tablet 2 times per day [Active]; - PMHx: 11:28 Atrial fibrillation; Dementia; diabetes mellitus; Hypertensive disorder; ph hyperthyroidism; - PSHx: 11:28 Pacemaker placement and replacement; toe amputation bilat; ph - Immunization history:: Adult Immunizations unknown. - Infectious Disease History:: Denies. - Social history:: Smoking status: unknown. Screenin:37 [facility] ED Fall Risk Assessment (Adult) History of falling in the last 3 months, ph including since admission Yes- fall prone (multiple falls) (3 pts) Confusion or Disorientation Yes (5 pts) Intoxicated or Sedated No (0 pts) Impaired Gait No (0 pts) Mobility Assist Device Used Yes (1 pt) Altered Elimination No (0 pt) Score/Fall Risk Level 3 or more points = High Risk Oriented to surroundings, Maintained a safe environment, Hourly rounding (assess needs \T\ fall precautionary measures) done, Used ambulatory aids as needed (educated on \T\ assisted with). Abuse screen: Denies threats or abuse. Denies injuries from another. Nutritional screening: No deficits noted. Tuberculosis screening: No symptoms or risk factors identified. Assessment: 12:02 General: Appears in no apparent distress. Behavior is calm, cooperative, CONFUSED. bp 13:30 Reassessment: Patient appears in no apparent distress at this time. Patient and/or ph family updated on plan of care and expected duration. Pain level reassessed. 15:18 Reassessment: Patient appears in no apparent distress at this time. Patient and/or ph family updated on plan of care and expected duration. Pain level reassessed. Report called to JUDSON Cardenas in ICU. Vital Signs: 11:25 Pulse 69; Resp 18; Temp 97.8; Pulse Ox 98% on R/A; Weight 90.72 kg; Height 6 ft. 0 in. ;ph 12:02 BP 120 / 62; Pulse 69; Resp 16; Pulse Ox 99% ; bp 13:29 BP 132 / 58; Pulse 64; Resp 18; Pulse Ox 100% on R/A; ph 15:08 BP 139 / 64; Pulse 61; Resp 18; Temp 97.8; Pulse Ox 98% on R/A; ph 11:25 Body Mass Index 27.12 (90.72 kg, 182.88 cm) ph [place] Coma Score: 15:08 Eye Response: spontaneous(4). Motor Response: obeys commands(6). Verbal Response: ph oriented(5). Total: 15. ED Course: 11:25 Patient arrived in ED. ph 11:25 Margaux Rashid MD is Attending Physician. gb1 11:28 Triage completed. ph 11:30 Arm band placed on Patient placed in an exam room. ph 11:34 Nena Guzman, RN is Primary Nurse. ph 11:34 Maintain EMS IV. Dressing intact. Good blood return noted. Site clean \T\ dry. Gauge \T\ ph site: 20 RFA. Flushed with 10 mL NS. 11:37 Patient has correct armband on for positive identification. Placed in gown. Bed in low ph position. Call light in reach. Side rails up X2. Client placed on continuous cardiac and pulse oximetry monitoring. NIBP monitoring applied. court recording monitor on. Warm blanket given. sandwich and juice provided to pt. 11:55 CT Head Brain wo Cont In Process Unspecified. EDMS 11:58 Inserted saline lock: 20 gauge in left forearm, using aseptic technique. Blood rs6 collected. Flushed with 10 mL NS. 12:11 Chest Single View XRAY In Process Unspecified. EDMS 13:00 Blood Glucose level was 50. rs6 13:03 Leigh Ann Morris MD is Hospitalizing Provider. gb1 15:19 No provider procedures requiring assistance completed. Patient admitted, IV remains in ph place. Administered Medications: 13:03 Not Given (Hemodynamic Parameters): ns 0.9% (30 ml/kg) 30 ml/kg IV at bolus once; bp Sepsis Protocol; to be given as a bolus over 90 minutes 13:03 Drug: D50W IVP 50 ml IVP once; (1 amp) Route: IVP; Site: right forearm; bp 13:28 Follow up: Response: No adverse reaction ph 13:28 Drug: D5-1/2 NS IV 500 ml IV at bolus once; 1000 mL bolus; followed by 125 mL/hr ph continuous Route: IV; Rate: bolus; Site: right forearm; 14:15 Follow up: Response: No adverse reaction; IV Status: Completed infusion; IV Intake: ph 500ml Medication: 11:37 VIS not applicable for this client. ph Intake: 14:15 IV: 500ml; Total: 500ml. ph Outcome: 13:06 Decision to Hospitalize by Provider. gb1 16:12 Admitted to ICU accompanied by nurse, accompanied by tech, family with patient, via ph stretcher, room 6, with chart, Report called to JUDSON Cardenas 16:12 Condition: stable 16:12 Instructed on the need for admit, 16:13 Patient left the ED. ph Signatures: Dispatcher [employer] Nena Moya RN RN Aleksandr Gil RN RN bp Margaux Rashid MD MD gb1 Sterling Lee rs6
--- NOTE | 2024-03-27 13:07 | EDPHYS ---
Physician Documentation [facility] Name: Ely Coley Age: 78 yrs Sex: Male : 1945 Arrival Date: 03/27/2024 Time: 11:23 Bed 6 Private MD: ED Physician Margaux Rashid HPI: 03/27 11:38 This 78 yrs old Male presents to ER via EMS with complaints of Low Blood gb1 Sugar. 11:38 Mr. Coley is an 78-year-old male that was brought by EMS for altered mental status. Once gb1 EMS arrived to the home the patient appeared altered and per report had a blood sugar at 32. They did give IV D10 and his blood sugar increased to the 160s. Patient does have history of paroxysmal atrial fibrillation and is on Eliquis 2.5 mg p.o. daily he has a history of dementia, diabetes, hypertension and hypothyroidism. He denies any fall or any head strike today.. Historical: - Allergies: 11:28 Glucophage; ph 11:28 metformin; ph 11:28 steroids; ph - Home Meds: 11:28 amiodarone 200 mg Oral tablet 1 tab daily [Active]; Eliquis 2.5 mg Oral tablet 1 tab 2 ph times per day [Active]; glipizide 5 mg Oral tablet daily [Active]; Humalog Mix 75-25(U-100)Insuln 100 unit/mL (75-25) Sub-Q suspension [Active]; levothyroxine 25 mcg tablet daily [Active]; liothyronine 25 mcg Oral tablet 1 tab daily [Active]; Plavix 75 mg Oral tablet 1 tab daily [Active]; sertraline 25 mg Oral tablet 1 tab daily [Active]; spironolactone 25 mg Oral tablet 2 times per day [Active]; - PMHx: 11:28 Atrial fibrillation; Dementia; diabetes mellitus; Hypertensive disorder; ph hyperthyroidism; - PSHx: 11:28 Pacemaker placement and replacement; toe amputation bilat; ph - Immunization history:: Adult Immunizations unknown. - Infectious Disease History:: Denies. - Social history:: Smoking status: unknown. Exam: 11:38 Constitutional: This is a well developed, well nourished patient who is awake, alert, gb1 and in no acute distress. Head/Face: Normocephalic, atraumatic. Eyes: Pupils equal round and reactive to light, extra-ocular motions intact. Lids and lashes normal. Conjunctiva and sclera are non-icteric and not injected. Cornea within normal limits. Periorbital areas with no swelling, redness, or edema. ENT: Nares patent. No nasal discharge, no septal abnormalities noted. Tympanic membranes are normal and external auditory canals are clear. Oropharynx with no redness, swelling, or masses, exudates, or evidence of obstruction, uvula midline. Mucous membranes moist. Neck: Trachea midline, no thyromegaly or masses palpated, and no cervical lymphadenopathy. Supple, full range of motion without nuchal rigidity, or vertebral point tenderness. No Meningismus. Chest/axilla: Normal chest wall appearance and motion. Nontender with no deformity. No lesions are appreciated. Cardiovascular: Regular rate and rhythm with a normal S1 and S2. No gallops, murmurs, or rubs. Normal PMI, no JVD. No pulse deficits. Respiratory: Lungs have equal breath sounds bilaterally, clear to auscultation and percussion. No rales, rhonchi or wheezes noted. No increased work of breathing, no retractions or nasal flaring. Abdomen/GI: Soft, non-tender, with normal bowel sounds. No distension or tympany. No guarding or rebound. No evidence of tenderness throughout. Back: No spinal tenderness. No costovertebral tenderness. Full range of motion. Skin: Warm, dry with normal turgor. Patient does have 2 areas of superficial skin tears on the right proximal forearm. No active bleeding. MS/ Extremity: Pulses equal, no cyanosis. Neurovascular intact. Full, normal range of motion. Vital Signs: 11:25 Pulse 69; Resp 18; Temp 97.8; Pulse Ox 98% on R/A; Weight 90.72 kg; Height 6 ft. 0 in. ;ph 12:02 BP 120 / 62; Pulse 69; Resp 16; Pulse Ox 99% ; bp 13:29 BP 132 / 58; Pulse 64; Resp 18; Pulse Ox 100% on R/A; ph 15:08 BP 139 / 64; Pulse 61; Resp 18; Temp 97.8; Pulse Ox 98% on R/A; ph 11:25 Body Mass Index 27.12 (90.72 kg, 182.88 cm) ph [place] Score: 15:08 Eye Response: spontaneous(4). Motor Response: obeys commands(6). Verbal Response: ph oriented(5). Total: 15. MDM: 11:28 Medical Screening Exam initiated gb 16:13 Data reviewed: vital signs. ED course: 78-year-old male with history of gb1 rwn-hywlhib-jhhwcggrj diabetes here with acute hypoglycemia that is requiring IV D5 half-normal saline to keep blood sugars above 80 will be admitted for serial glucose with trending. I discussed these with Dr. Morris and he will be admitted to the inpatient unit.. 03/27 11:26 Order name: CBC with Diff gb03/27 11:26 Order name: CMP; Complete Time: 12:45 gb1 03/27 11:26 Order name: Lactate w/ 2H reflex if indic. gb03/27 11:26 Order name: Protime (+inr); Complete Time: 12:45 gb1 03/27 11:26 Order name: Ptt, Activated; Complete Time: 12:45 gb1 03/27 11:26 Order name: Urinalysis w/ reflexes gb1 03/27 11:26 Order name: Troponin High Sensitivity; Complete Time: 12:45 gb1 03/27 13:11 Order name: Glucose, Ancillary Testing EDMS 03/27 14:46 Order name: Magnesium EDMS 03/27 14:46 Order name: Phosphorus EDMS 03/27 14:46 Order name: T4 Free EDMS 03/27 14:46 Order name: Thyroid Stimulating Hormone EDMS 03/27 14:46 Order name: Basic Metabolic Panel EDMS 03/27 14:46 Order name: Basic Metabolic Panel EDMS 03/27 14:46 Order name: CBC with Automated Diff EDMS 03/27 14:46 Order name: CBC with Automated Diff EDMS 03/27 15:15 Order name: Glucose, Ancillary Testing EDMS 03/27 15:46 Order name: Manual Differential EDMS 03/27 11:26 Order name: Chest Single View XRAY; Complete Time: 12:45 gb1 03/27 11:35 Order name: CT Head Brain wo Cont; Complete Time: 12:45 gb1 03/27 11:26 Order name: EKG; Complete Time: 11:27 gb03/27 11:26 Order name: Accucheck; Complete Time: 11:35 gb1 02/17 11:26 Order name: Cardiac monitoring; Complete Time: 11:35 03/27 11:26 Order name: EKG - Nurse/Tech; Complete Time: 13:03 03/27 11:26 Order name: IV Saline Lock - Large Bore; Complete Time: 11:35 03/27 11:26 Order name: Labs collected and sent; Complete Time: 11:52 03/27 11:26 Order name: O2 Per Protocol; Complete Time: :03/27 11:26 Order name: O2 Sat Monitoring; Complete Time: 11:35 03/27 11:26 Order name: Vital Signs; Complete Time: 11:35 03/27 12:04 Order name: Labs - recollect needed: recollect coley on ice, please label tubes; bd Complete Time: 12:27 03/27 12:53 Order name: Blood Glucose Level; Complete Time: 13:03 Administered Medications: 13:03 Not Given (Hemodynamic Parameters): ns 0.9% (30 ml/kg) 30 ml/kg IV at bolus once; bp Sepsis Protocol; to be given as a bolus over 90 minutes 13:03 Drug: D50W IVP 50 ml IVP once; (1 amp) Route: IVP; Site: right forearm; bp 13:28 Follow up: Response: No adverse reaction ph 13:28 Drug: D5-1/2 NS IV 500 ml IV at bolus once; 1000 mL bolus; followed by 125 mL/hr ph continuous Route: IV; Rate: bolus; Site: right forearm; 14:15 Follow up: Response: No adverse reaction; IV Status: Completed infusion; IV Intake: ph 500ml Disposition Summary: 03/27/24 13:06 Hospitalization Ordered Notes: Hospitalization Status: Inpatient Admission gb1 Provider: Leigh Ann Morris Condition: Fair gb1 Problem: new gb1 Symptoms: are unchanged gb1 Bed/Room Type: Standard 1 Location: Intensive Care Unit(03/27/24 15:04) bd Room Assignment: 6-(03/27/24 15:04) bd Diagnosis - Diabetes mellitus due to underlying condition with hypoglycemia without coma gb1 Forms: - Medication Reconciliation Form gb1 - SBAR form gb1 - Leadership Thank You Letter gb1 Critical care time excluding procedures: 16:13 Critical care time: Bedside Care: 90 minutes, Consultation: 25 minutes, Family gb1 Intervention: 45 minutes. Total time: 160 minutes Signatures: Dispatcher [employer] Shena Valdez Patricia, RN RN ph Aleksandr Llamas RN RN Margaux Arreola MD MD gb1 Corrections: (The following items were deleted from the chart) 15:04 13:06 Telemetry/MedSurg (Inpatient) [facility] 15:04 13:06 [facility]
[2024-03-27] MEDS ORDERED: D5 0.45 NS 1,000 ML IV ONE (13:20)
[2024-03-27] MEDS ORDERED: ONDANSETRON 4 MG/2 ML VIAL IV PRN (14:37)
[2024-03-27] MEDS ORDERED: ACETAMINOPHEN 500 MG TAB PO PRN (14:37)
[2024-03-27] MEDS ORDERED: GLUCAGON 1 MG/VIAL IM PRN (14:44)
[2024-03-27] MEDS ORDERED: D10W 125 ML IV PRN (14:44)
--- NOTE | 2024-03-27 14:52 | P.HP ---
Certification for Inpatient Patient admitted to: Observation With expected LOS: <2 Midnights Patient will require the following post-hospital care: None Practitioner: I am a practitioner with admitting privileges, knowledge of patient current condition, hospital course, and medical plan of care. Services: Services provided to patient in accordance with Admission requirements found in Title 42 Section 412.3 of the Code of Federal Regulations <Arnold Medina - Last Filed: 03/27/24 22:24> Patient History Date of Service: 03/27/24 Reason for admission: AMS, Hypoglycermia History of Present Illness: Patient is an 78-year-old male with a past medical history significant for atrial fibrillation, hypothyroidism, DM2, dementia, hypertension, depression, CVA, diastolic CHF, PVD who presents with complaint of altered mental status onset this morning. Family reported that patient was more confused than his baseline this morning. Family reported patient has been experiencing poor appetite for quite some time now. At time of assessment patient almost back to his baseline mental status. Patient reported associated signs and symptoms of dizziness, RIZO, diaphoresis and cough. Patient denies any other signs and symptoms. Symptoms are aggravated or relieved by nothing. EMS was called and patient's blood sugar was noted to be 34 mg per DL. Patient was brought to the hospital for medical evaluation. - Past Medical/Surgical History Diabetic: Yes -: History CVA -: Atrial fibrillation now with pacemaker -: DM -: chronic b/l LE cellulitis -: PVD -: GERD -: Moderate pulmonary hypertension -: CHF, diastolic dysfunction -: hypothyroidism -: dementia -: R. total knee replacement -: kristian. cataract sx -: Right thigh staph inf. -: L. big toe amputated -: Back sx -: L big toe partial amputation Psychosocial/ Personal History: The patient is . - Family History Mother -: Heart disease Father -: Heart disease Brother -: Heart disease, Hypertension, Diabetes, Cancer - Social History Smoking Status: Never smoker Alcohol use: No CD- Drugs: No Caffeine use: Yes Place of Residence: Home <AlyssadillonMargarito muirquang Muir - Last Filed: 03/27/24 22:24> Date of Service: 03/27/24 <Leigh Ann Morris - Last Filed: 03/31/24 08:56> Allergies metformin [From Glucophage] Allergy (Verified 10/30/23 05:21) Shortness of breath metoprolol Adverse Reaction (Verified 10/30/23 05:21) Shortness of breath steroids Allergy (Unknown, Uncoded 06/19/20 11:25) Unknown Home Medications: Amiodarone HCl [Cordarone*] 200 mg PO DAILY 10/19/17 Apixaban [Eliquis *] 2.5 mg PO BID 10/19/17 Sertraline HCl 25 mg PO DAILY 05/27/21 Levothyroxine Sodium [Levo-T] 25 mcg PO [id number] 10/30/23 Liothyronine Sodium [Cytomel] 5 mcg PO [id number] 10/30/23 Furosemide [Lasix*] 40 mg PO BID 02/21/24 Ascorbic Acid [Vitamin C] 500 mg PO DAILY 03/27/24 Insulin Lispro MIX 75/25 [Humalog Mix 75/25] See Rx Instructions .ROUTE .COMPLEX 03/27/24 Spironolactone [Aldactone*] 25 mg PO DAILY 03/27/24 Zinc Gluconate [Zinc] 50 mg PO DAILY 03/27/24 glipiZIDE [Glipizide] 5 mg PO BID 03/27/24 Review of Systems General: Sweats, Other (Poor Appetite ) Eyes: Unremarkable ENT: Unremarkable Respiratory: Cough Cardiovascular: Unremarkable Gastrointestinal: Unremarkable Genitourinary: Unremarkable Musculoskeletal: Unremarkable Integumentary: Unremarkable Neurological: Confusion Lymphatics: Unremarkable <Arnold Medina - Last Filed: 03/27/24 22:24> Physical Examination - Physical Exam General: Alert, In no apparent distress, Oriented x2, Confused HEENT: Atraumatic, PERRLA, Mucous membr. moist/pink, EOMI, Sclerae nonicteric Neck: Supple, 2+ carotid pulse no bruit, No LAD, Without JVD or thyroid ab normality Respiratory: Clear to auscultation bilaterally, Normal air movement Cardiovascular: No edema, Regular rate/rhythm, Normal S1 S2 Capillary refill: <2 Seconds Gastrointestinal: Normal bowel sounds, Soft and benign, No tenderness Musculoskeletal: No clubbing, No tenderness Integumentary: No rashes Neurological: Normal speech, Normal tone, Normal affect, Abnormal gait Lymphatics: No axilla or inguinal lymphadenopathy - Studies Laboratory Data (last 24 hrs) 03/27/24 03/27/24 03/27/24 11:40 11:40 11:40 WBC 9.20 Hgb 8.8 L Hct 26.4 L Plt Count 167 PT 17.5 H INR 1.68 APTT 35.6 Sodium 139 Potassium 4.2 BUN 43 H Creatinine 2.42 H Glucose 97 Total Bilirubin 0.5 AST 14 L ALT < 14 L Alkaline Phosphatase 137 H <Arnold Medina E - Last Filed: 03/27/24 22:24> Assessment and Plan - Plan Hypoglycemia associated with DM2. --Will hold off on patient's home medications --glipizide and insulin --Continue D10 infusion. --Blood sugar monitoring. Acute metabolic encephalopathy --Likely secondary to hypoglycemia. --CT head unremarkable for any acute intracranial abnormality. --Patient's mental status almost back to baseline Paroxysmal Atrial fibrillation --Continue Eliquis and amiodarone Chronic diastolic CHF --Continue Lasix. --Daily weight and strict I/O. Cough. --Chest x-ray indicates findings concerning for pulmonary edema or worsening pneumonia. --CT chest pending for further evaluation. --Continue antibiotics. History of CVA\PVD --Continue Eliquis Hypothyroidism\Depression --Continue home medications Dementia --Continue supportive care Hypertension --Stable. --Continue home medications CKD 4. --Slight depreciation in renal functions noted. --Nephrology consulted. Recommendations appreciated. DVT prophylaxis with Eliquis. manager eligibility consulted for DC planning and Advance directives Discharge Plan: Home Plan to discharge in: 48 Hours - Advance Directives Does patient have a Living Will: No Does patient have a Durable POA for Healthcare: No - Code Status/Comfort Care Code Status Assessed: Yes Physician Review: Patient Assessed, Agree with Above Assessment and Plan Critical Care: No <Arnold Medina - Last Filed: 03/27/24 22:24> - Problems (Diagnosis) (1) Hypoglycemia Current Visit: Yes Status: Acute (2) Generalized weakness Current Visit: Yes Status: Acute (3) Chronic kidney disease Current Visit: Yes Status: Acute (4) A-fib Onset Date: 08/28/15 Current Visit: No Status: Chronic Qualifiers: (5) Cerebrovascular accident (stroke) Onset Date: 07/03/14 Current Visit: No Status: Chronic Qualifiers: CVA mechanism: unspecified Qualified Code(s): I63.9 - Cerebral infarction, unspecified (6) Diabetes mellitus Onset Date: 11/29/17 Current Visit: No Status: Chronic (7) Hypertension Onset Date: 08/28/15 Current Visit: No Status: Chronic Qualifiers: Hypertension type: essential hypertension Qualified Code(s): I10 - Essential (primary) hypertension (8) Pulmonary hypertension Onset Date: 01/07/17 Current Visit: No Status: Chronic <Leigh Ann Morris - Last Filed: 03/31/24 08:56> Date of Service: 03/27/24 Patient was seen and examined. Events of the last 24 hours have been noted. Spoke with with LILLIAN regarding patient's clinical picture after evaluating and examining the patient independently. I performed a substantial part of the MDM during this patient's care today. I personally made or approved the documented management plan and acknowledge its risk of complications. I agree with the findings and documentation provided in the LILLIAN's notes. Patient with hypoglycemia; adjust hypoglycemic agents. Monitor renal function closely. <Leigh Ann Morris - Last Filed: 03/31/24 08:56>
[2024-03-27] MEDS: DEXTROSE 10%-WATER 500 ML IV SCH (15:00)
[2024-03-27] MEDS: INSULIN REGULAR (HUMAN) 100 UNIT/ML SQ SCH (15:00)
[2024-03-27 15:45] LABS: Anisocytosis 1+; Blood Morphology Comment NOTED (NOT SEEN); Differential Total Cells Count 100; Eosinophils 1 % (0-3); Lymphocytes 10 % (15-42); Monocytes 17 % (0-10); Platelet Estimate ADEQ; Segmented Neutrophils 71 % (40-80)
[2024-03-27 17:55] LABS: Magnesium 1.7 mg/dL (1.6-2.4); Phosphorus 3.3 mg/dL (2.5-4.9); Thyroid Stimulating Hormone 3.05 uIU/mL (0.358-3.740)
[2024-03-27] MEDS: HEPARIN 5000 UNIT/ML 1 ML VIAL SQ SCH (20:15)
--- NOTE | 2024-03-27 22:34 | RAD REPORT ---
EXAM:Thorax Wo Con CLINICAL INDICATION: Cough TECHNIQUE: CT chest performed.. Axial, sagittal and coronal reconstructions were obtained. One or mor e of the following dose reduction techniques were used: Automated exposure control, adjustment of the mA and/or kV according to the patient size, and/or iterative reconstruction. Unless otherwise specified, incidental findings do not require dedicated imaging follow-up. [id number]. COMPARISON: 2023 FINDINGS: Moderate right and [id number] left pleural effusions are present. Right lower lobe consolidation. Mild left lower lobe atelectasis. No mediastinal or hilar lymphadenopathy. No pleural effusion IMPRESSION: Mild right lower lobe consolidation probably pneumonia. Moderate right and small to moderate left pleural effusions
[2024-03-28] MEDS: AZITHROMYCIN IV 500 MG in NA CHLORIDE 0.9% 250 ML IVPB ONE (00:32)
[2024-03-28 05:51] LABS: Calcium Oxalate Crystals- Ur Few /HPF (None Seen); Specific Gravity 1.008 (1.005-1.030); Sqamous Epithelial <5 /HPF (None Seen); Urine Bacteria None Seen /HPF (<20); Urine Bilirubin NEGATIVE (Negative); Urine Blood Negative (Negative); Urine Clarity Turbid (Clear); Urine Color Light-Yellow (Yellow); Urine Culture Reflex Order NOT NEEDED; Urine Glucose 1+ (Negative); Urine Ketones NEGATIVE (Negative); Urine Microscopic Reflex YN ORDER UMIC; Urine Nitrite NEGATIVE (Negative); Urine Protein NEGATIVE (Negative); Urine RBC <5 /HPF (None Seen); Urine Urobilinogen Normal (Normal); Urine WBC None Seen /HPF (<5); Urine pH 6.5 (5.0-7.0)
[2024-03-28 06:02] LABS: Absolute Eosinophils 0.1 K/uL (0-0.5); Absolute Lymphocytes (CBC) 1.2 K/uL (0.7-4.9); Absolute Monocytes 1.5 K/uL (0.1-1.3); Absolute Neutrophil 4.7 K/uL (1.8-8.0); Basophils % 0.6 % (0-1.3); Eosinophils % 1.1 % (0-4.4); Hematocrit 24.1 % (39.6-49.0); Hemoglobin 7.7 g/dL (13.6-17.9); Lymphocytes % 15.9 % (15.3-44.8); MCH 29.3 pg (27.0-35.0); MCHC 32.1 g/dL (32.0-36.0); MCV 91.2 fL (80-100); MPV 7.6 fL (7.6-11.3); Monocytes % 19.9 % (3.3-12.3); Neutrophils % 62.5 % (41.7-73.7); Nucleated Red Blood Cells % 0.1 % (0-0); Platelets 179 thou/uL (152-406); RBC Red Blood Cell Count 2.64 M/uL (4.33-5.43); Red Cell Distribution Width 20.8 % (12.1-15.2)
[2024-03-28] MEDS: LEVOTHYROXINE SOD 0.025 MG TAB PO SCH (06:13)
[2024-03-28] MEDS: LIOTHYRONINE SOD 5 MCG TAB PO SCH (06:13)
[2024-03-28 06:30] LABS: Albumin 2.2 g/dL (3.4-5.0); Albumin/Globulin Ratio 0.6 (1.1-1.8); Alkaline Phosphatase 119 U/L (45-117); Anion Gap 8.2 mEq/L (5.0-15.0); BUN Blood Urea Nitrogen 40 mg/dL (7-18); Bicarbonate 24 mEq/L (21-32); Bilirubin Total 0.5 mg/dL (0.2-1.0); Globulin 3.7 g/dL (2.3-3.5); Glomerular Filtration Rate 33 ml/min (=/>90); Glucose Level 116 mg/dL (74-106); Magnesium 1.8 mg/dL (1.6-2.4); Potassium 4.2 mEq/L (3.5-5.1); Protein, Total 5.9 g/dL (6.4-8.2); Sodium Level 141 mEq/L (136-145)
[2024-03-28 06:40] LABS: ALT/SGPT < 14 U/L (16-61); AST/SGOT < 10 U/L (15-37)
[2024-03-28] MEDS: FUROSEMIDE 40 MG TABLET PO SCH (08:51)
[2024-03-28] MEDS: APIXABAN 2.5 MG TABLET PO SCH (08:52)
[2024-03-28] MEDS: ASCORBIC ACID 500 MG TABLET PO SCH (08:53)
[2024-03-28] MEDS: SERTRALINE HCL 50 MG TAB PO SCH (08:53)
[2024-03-28] MEDS: AMIODARONE HCL 200 MG TAB PO SCH (08:54)
[2024-03-28] MEDS: ZINC SULFATE 220 MG CAP PO SCH (08:54)
[2024-03-28] MEDS: SPIRONOLACTONE 25 MG TABLET PO SCH (08:54)
[2024-03-28] MEDS: CEFTRIAXONE 1,000 MG in NA CHLORIDE 0.9% 50 ML IVPB SCH (08:55)
[2024-03-28] MEDS: HYDROCORTISONE SUC 100 MG INJ IV ONE (12:28)
[2024-03-28] MEDS: ALBUMIN HUMAN 25% 100 ML IV ONE (12:29)
[2024-03-28] MEDS: MIDODRINE HCL 5 MG TABLET PO SCH (12:54)
[2024-03-28] MEDS: GLUCERNA SHAKE 237 ML CAN PO SCH (20:21)
[2024-03-28] MEDS: JUVEN PACKET PO SCH (20:21)
--- NOTE | 2024-03-28 23:41 | CON ---
Date of Consultation: 03/28/2024 Chief Complaint: Acute on chronic kidney injury. History Of Present Illness: The patient is admitted to ICU for altered mental status and hypoglycemi a. He was found to have elevated BUN and creatinine levels. He has history of hypertension, diabete s mellitus, chronic kidney disease secondary to diabetes mellitus and hypertension, chronic cardioren al syndrome, CVA, diastolic congestive heart failure, peripheral vascular disease. On presentation t o emergency room, he was complaining of altered mental status of one-day duration. Family reported t hat the patient was confused. Denied fever or chills. The patient was experiencing decreased appeti te and generalized weakness. Denies PND, orthopnea, although he had some dizziness, headache, diapho resis, and cough. Blood glucose was 34 when he came to emergency room and he was treated for hypogly cemia, and was admitted to ICU for congestive heart failure and pneumonia, and Nephrology consultatio n was requested for acute on chronic kidney injury. Past Medical History: CVA; atrial fibrillation, pacemaker; diabetes mellitus with renal manifestatio n; chronic lower extremity cellulitis; peripheral vascular disease; GERD; moderate pulmonary hyperten tyler; congestive heart failure, diastolic dysfunction; hypothyroidism; dementia; right total knee rep lacement; bilateral cataract surgeries; right thigh staphylococcus infection; left big toe partial am putation; back surgery. Family History: Mother, heart disease. Father, heart disease. Brother, heart disease, hypertension , diabetes, and cancer. Social History: Never smoker. No alcohol. No drugs. Review of Systems: General: Sweats and poor appetite. Eyes: Unremarkable. Respiratory: Cough. Cardiovascular: Unremarkable. Gastrointestinal: Unremarkable. Musculoskeletal: Chronic back pain. Physical Examination: General: Oriented x2, confused, although answered questions. HEENT: Atraumatic, normocephalic. Anicteric sclerae. Neck: Supple. No JVD. No bruits. Lungs: Rhonchi present bilateral. Crackles at bases present. Cardiovascular: No edema. Normal S1 and S2. Gastrointestinal: Normal bowel sounds. No rebound. No guarding. Extremities: Slight ankle edema present. Neurological: Moving extremities. Cranial nerves intact. Laboratory Data: WBC 9.2, hemoglobin 8.8, hematocrit 26.4, platelet count 167,000. Sodium 139, pota ssium 4.2, BUN 43, creatinine 2.42, glucose 107. Total bilirubin 0.5. Impression And Plan: 1. Acute on chronic kidney disease. The patient has underlying chronic kidney disease stage 3, advan cing to stage 4. 2. He has history of diabetes mellitus. 3. Complicated history of congestive heart failure, diastolic dysfunction. 4. Pulmonary hypertension. 5. History of . 6. He developed acute metabolic encephalopathy secondary to hypoglycemia, possible sepsis. The patie nt is treated with antibiotics for pneumonia. The patient was taken off and insulin due t o hypoglycemia. Continue D10 infusion. Monitor electrolytes closely. 7. Congestive heart failure, diastolic dysfunction. Monitor fluid balance. Avoid nephrotoxic medica tion. 8. Acute kidney injury due to prerenal azotemia. Evaluate renal panel in the morning. Check CK leve l and urinalysis to rule out active urinary sediment. Check renal ultrasound to rule out obstructive uropathy. EB/MODL Voice ID: [id number] Report ID: [id number]
[2024-03-29 05:40] LABS: Absolute Basophils 0.1 K/uL (0-0.5); Absolute Lymphocytes (CBC) 2.3 K/uL (0.7-4.9); Absolute Neutrophil 6.8 K/uL (1.8-8.0); Basophils % 0.7 % (0-1.3); Eosinophils % 0.1 % (0-4.4); Hematocrit 25.1 % (39.6-49.0); Hemoglobin 8.2 g/dL (13.6-17.9); Lymphocytes % 20.7 % (15.3-44.8); MCH 29.4 pg (27.0-35.0); MCHC 32.8 g/dL (32.0-36.0); MCV 89.5 fL (80-100); MPV 7.2 fL (7.6-11.3); Monocytes % 18.2 % (3.3-12.3); Neutrophils % 60.3 % (41.7-73.7); Platelets 196 thou/uL (152-406); RBC Red Blood Cell Count 2.81 M/uL (4.33-5.43)
[2024-03-29 05:41] LABS: Red Cell Distribution Width 20.4 % (12.1-15.2)
[2024-03-29 05:58] LABS: Anion Gap 8.8 mEq/L (5.0-15.0); Potassium 3.8 mEq/L (3.5-5.1)
--- NOTE | 2024-03-29 06:54 | RAD REPORT ---
EXAMINATION: US RETROPERITONEUM CLINICAL INDICATION: ckd heidi TECHNIQUE: Real-time ultrasonography of the abdomen was performed. COMPARISON: No prior exam. FINDINGS: RIGHT KIDNEY: Right renal length measurement: 9.5 cm. Normal in echogenicity and size. No calculus, s olid mass or hydronephrosis. LEFT KIDNEY: Left renal length measurement: 9.9 cm. Normal in echogenicity and size. No calculus, yuan id mass or hydronephrosis. ADDITIONAL FINDINGS: None. IMPRESSION: No acute or significant abnormalities. No hydronephrosis.
[2024-03-29] MEDS: INSULIN REGULAR (HUMAN) 100 UNIT/ML SQ SCH (07:30)
--- NOTE | 2024-03-29 12:54 | PN ---
Date of Progress Note: 03/29/2024 Subjective: The patient was admitted to the hospital with acute kidney injury. The patient doing better. Had good urine output. Physical Examination: Vital Signs: When I saw the patient, blood pressure 102/34, pulse of 66. Chest: Crackles bilateral. Heart: S1, S2. Systolic murmur. Abdomen: Soft, nontender. Extremities: Trace edema. Neurologic: Alert. No focality. Laboratory Data: Sodium 139, potassium 3.8, bicarb 25, BUN 42, creatinine 2.2, calcium 8.2. Hemoglobin 8.2. Current Medications: The patient on include azithromycin, ceftriaxone, midodrine, Eliquis, amiodarone, spironolactone, Lasix 40 b.i.d. Assessment And Plan: 1. Acute kidney injury secondary to prerenal/cardiorenal syndrome on chronic kidney disease, stable. Still looked to me on the over volume to the wet side. I am going to continue current diuresis and we will monitor the patient. 2. Hypertension. Currently blood pressure on the lower side. We will continue to utilize blood pressure for more diuresis. 3. Hypokalemia. Continue spironolactone. We will check on his magnesium. 4. Anasarca. Hypothyroidism has been ruled out. We will send for PC ratio. I am going to optimize diuresis. Continue Lasix and spironolactone. 5. Anemia of chronic kidney disease. We will send for anemia workup. Time spent examining the patient [id number] reviewing data lab and an audiology placing order discussing the case with the patient discussing the case with the seo team lead including hospitalist and nursing staff more than 55-minute MARVIN Voice ID: [id number] Report ID: [id number] URSULA
[2024-03-29 17:03] VITALS: BMI 28.5
[2024-03-29 23:06] LABS: UR PROTEIN 8.7 mg/dL (<11.9)
[2024-03-29 23:23] LABS: UR CREAT < 18.0 mg/dL (20-370)
[2024-03-30 05:58] LABS: Percent Reticulocyte Count 1.23 % (0.4-2.05); RBC Red Blood Cell Count 2.93 M/uL (4.33-5.43)
[2024-03-30 06:35] LABS: Albumin 2.5 g/dL (3.4-5.0); Anion Gap 8.9 mEq/L (5.0-15.0); Ferritin 123.9 ng/mL (26-388); Magnesium 1.7 mg/dL (1.6-2.4); Phosphorus 3.1 mg/dL (2.5-4.9); Potassium 3.9 mEq/L (3.5-5.1); Uric Acid 8.3 mg/dL (3.5-7.2)
[2024-03-30] MEDS: Magnesium Sulfate 2gm IVPB 2 G/50 ML BAG IV ONE (14:00)
--- NOTE | 2024-03-30 14:36 | PN ---
Date of Progress Note: 03/30/2024 Subjective: The patient was admitted to the hospital with acute kidney injury. The patient's kidney function started being improving. His acute kidney injury was secondary to cardiorenal. The patient has been having good urine output. Objective: Vital Signs: When I saw the patient, blood pressure 119/56, pulse of 65. The patient had good urine output of 1750, negative of 1400. Chest: Faint rales, bilateral. Heart: S1, S2. Systolic murmur. Abdomen: Soft, nontender. Extremities: Venous stasis, +1 edema. Neurologic: Alert. No focality. Laboratory Data: Hemoglobin 8.2, sodium 139, potassium 3.9, bicarb 27, BUN 50, creatinine 2.1, GFR of 30, continue to improve. Calcium 8.5, phosphorus 3.1, magnesium 1.7, ferritin 123, albumin 2.5. Vitamin B12 1300, PTH 56. PC ratio 0.4. Current Medications: The patient on, it includes cefdinir, midodrine, spironolactone, amiodarone, Lasix 40 b.i.d., levothyroxine. Assessment And Plan: 1. Acute kidney injury secondary to cardiorenal, nonoliguric. I am going to continue the patient on the current diuresis and we will follow up the patient. 2. Hypertension, currently blood pressure on the lower side. We will keep utilizing the blood pressure for more diuresis. Continue spironolactone and Lasix. Continue midodrine. 3. Hypokalemia. Continue spironolactone. 4. Anasarca secondary to cardiorenal, hypothyroidism has been ruled out. No significant protein in the urine. I am going to continue diuresing and we will monitor the patient. 5. Hypomagnesemia. We will supplement. Time spent examining the patient [id number] reviewing data lab and an audiology placing order discussing the case with the patient discussing the case with the steam conditioner filling including hospitalist and nursing staff more than 55-minute ANGIE/AZEB Voice ID: [id number] Report ID: [id number] URSULA
[2024-03-30] MEDS: MAGNESIUM SULFATE 1 gm IVPB 1 GM/100 ML BAG IV ONE (15:46)
[2024-03-31 05:15] LABS: Albumin 2.4 g/dL (3.4-5.0); Anion Gap 7.9 mEq/L (5.0-15.0); Magnesium 1.9 mg/dL (1.6-2.4); Phosphorus 3.1 mg/dL (2.5-4.9); Potassium 3.9 mEq/L (3.5-5.1)
[2024-03-31 08:40] VITALS: BP 106/51
[2024-03-31 08:55] VITALS: TEMP 98
--- NOTE | 2024-03-31 08:55 | P.PN ---
Subjective Date of Service: 03/28/24 Patient clinically doing better. Blood sugars are stable. However, he still with a lot of weakness. Will get physical therapy to work with him today. Continue monitor renal function closely. Review of Systems 10-point ROS is otherwise unremarkable Physical Examination - Vital Signs Temperature: 98 F Blood Pressure: 106/51 Pulse: 65 Respirations: 18 Pulse Ox (%): 97 - Physical Exam General: Alert, In no apparent distress, Oriented x3 Respiratory: Clear to auscultation bilaterally, Normal air movement Cardiovascular: Regular rate/rhythm, Normal S1 S2, No murmurs Gastrointestinal: Normal bowel sounds, Soft and benign, Non-distended, No tenderness Musculoskeletal: No clubbing, No swelling, No tenderness Integumentary: No rashes Neurological: Sensation intact, Cranial nerves 3-12 intact - Studies Medications List Reviewed: Yes Assessment & Plan - Problems (Diagnosis) (1) Hypoglycemia Current Visit: Yes Status: Acute (2) Generalized weakness Current Visit: Yes Status: Acute (3) Chronic kidney disease Current Visit: Yes Status: Acute (4) A-fib Onset Date: 08/28/15 Current Visit: No Status: Chronic Qualifiers: (5) Cerebrovascular accident (stroke) Onset Date: 07/03/14 Current Visit: No Status: Chronic Qualifiers: CVA mechanism: unspecified Qualified Code(s): I63.9 - Cerebral infarction, unspecified (6) Diabetes mellitus Onset Date: 11/29/17 Current Visit: No Status: Chronic (7) Hypertension Onset Date: 08/28/15 Current Visit: No Status: Chronic Qualifiers: Hypertension type: essential hypertension Qualified Code(s): I10 - Essential (primary) hypertension (8) Pulmonary hypertension Onset Date: 01/07/17 Current Visit: No Status: Chronic - Plan Plan: 1. Hyperglycemia; patient's blood sugars are improved. Will adjust hypoglycemic agents going forward. Will need to refrain as renal function is elevated. 2. Generalized weakness. Continue with physical therapy. Out of bed and ambulate 3. A-fib; continue with medication for rate control and anticoagulation 4. History of hypertension; resume antihypertensives 5. CKD stage III; continue with monitor renal function 6. Anemia; no chronic disease; check erythropoietin levels and may benefit from Procrit 7. GI DVT prophylaxis Discharge Plan: Home Plan to discharge in: Greater than 2 days - Advance Directives Does patient have a Living Will: Yes Does patient have a Durable POA for Healthcare: No Physician Review: Patient Assessed, Agree with Above Assessment and Plan Critical Care: No Time Spent Managing PTS Care (In Minutes): 35
--- NOTE | 2024-03-31 08:58 | P.PN ---
Date of Service: 03/29/24 Subjective Patient is doing better. Patient denies any new complaints. Ambulating with therapy gently. Will stepdown to [facility]. Physical Examination - Vital Signs reviewed - Physical Exam General: Alert, In no apparent distress, Oriented x3 Respiratory: Clear to auscultation bilaterally, Normal air movement Cardiovascular: Regular rate/rhythm, Normal S1 S2, No murmurs Gastrointestinal: Normal bowel sounds, Soft and benign, Non-distended, No tenderness Musculoskeletal: No clubbing, No swelling, No tenderness Neurological: No focal deficits Assessment & Plan - Problems (Diagnosis) (1) Hypoglycemia Current Visit: Yes Status: Acute (2) Generalized weakness Current Visit: Yes Status: Acute (3) Chronic kidney disease Current Visit: Yes Status: Acute (4) A-fib Onset Date: 08/28/15 Current Visit: No Status: Chronic (5) Cerebrovascular accident (stroke) Onset Date: 07/03/14 Current Visit: No Status: Chronic CVA mechanism: unspecified Qualified Code(s): I63.9 - Cerebral infarction, unspecified (6) Diabetes mellitus Onset Date: 11/29/17 Current Visit: No Status: Chronic (7) Hypertension Onset Date: 08/28/15 Current Visit: No Status: Chronic Hypertension type: essential hypertension Qualified Code(s): I10 - Essential (primary) hypertension (8) Pulmonary hypertension Onset Date: 01/07/17 Current Visit: No Status: Chronic - Plan Continue with plan of care as mentioned below: 1. Hyperglycemia; patient's blood sugars are improved. Will adjust hypoglycemic agents going forward. Will need to refrain as renal function is elevated. 2. Generalized weakness. Continue with physical therapy. Out of bed and ambulate 3. A-fib; continue with medication for rate control and anticoagulation 4. History of hypertension; resume antihypertensives 5. CKD stage III; continue with monitor renal function 6. Anemia; no chronic disease; check erythropoietin levels and may benefit from Procrit 7. History of CVA; continue with antiplatelet therapy and statin therapy 8. GI DVT prophylaxis Discharge Plan: Home Plan to discharge in: Greater than 2 days - Advance Directives Does patient have a Living Will: Yes Does patient have a Durable POA for Healthcare: No Physician Review: Patient Assessed, Agree with Above Assessment and Plan Critical Care: No Time Spent Managing PTS Care (In Minutes): 25
--- NOTE | 2024-03-31 08:59 | P.PN ---
Date of Service: 03/30/24 Subjective Patient denies any new complaints. Clinical symptoms continue to improve. Clinically doing much better at this time. Anticipate discharge in the morning. Physical Examination - Vital Signs reviewed - Physical Exam General: Alert, In no apparent distress, Oriented x3 Respiratory: Clear to auscultation bilaterally, Normal air movement Cardiovascular: Regular rate/rhythm, Normal S1 S2, No murmurs Gastrointestinal: Normal bowel sounds, Soft and benign, Non-distended, No tenderness Musculoskeletal: No clubbing, No swelling, No tenderness Neurological: No focal deficits Assessment & Plan - Problems (Diagnosis) (1) Hypoglycemia Current Visit: Yes Status: Acute (2) Generalized weakness Current Visit: Yes Status: Acute (3) Chronic kidney disease Current Visit: Yes Status: Acute (4) A-fib Onset Date: 08/28/15 Current Visit: No Status: Chronic (5) Cerebrovascular accident (stroke) Onset Date: 07/03/14 Current Visit: No Status: Chronic CVA mechanism: unspecified Qualified Code(s): I63.9 - Cerebral infarction, unspecified (6) Diabetes mellitus Onset Date: 11/29/17 Current Visit: No Status: Chronic (7) Hypertension Onset Date: 08/28/15 Current Visit: No Status: Chronic Hypertension type: essential hypertension Qualified Code(s): I10 - Essential (primary) hypertension (8) Pulmonary hypertension Onset Date: 01/07/17 Current Visit: No Status: Chronic - Plan Continue with plan of care as mentioned below: 1. Hyperglycemia; patient's blood sugars are improved. Will adjust hypoglycemic agents going forward. Will need to refrain as renal function is elevated. 2. Generalized weakness. Continue with physical therapy. Out of bed and ambulate 3. A-fib; continue with medication for rate control and anticoagulation 4. History of hypertension; resume antihypertensives 5. CKD stage III; continue with monitor renal function 6. Anemia; no chronic disease; check erythropoietin levels and may benefit from Procrit 7. History of CVA; continue with antiplatelet therapy and statin therapy 8. GI DVT prophylaxis Discharge Plan: Home Plan to discharge in: Greater than 2 days - Advance Directives Does patient have a Living Will: Yes Does patient have a Durable POA for Healthcare: No Physician Review: Patient Assessed, Agree with Above Assessment and Plan Critical Care: No Time Spent Managing PTS Care (In Minutes): 25
[2024-03-31] MEDS ORDERED: CEFDINIR 300 MG CAP PO SCH (09:00)
[2024-03-31 16:11] VITALS: O2SAT 97
[2024-04-02 13:37] LABS: Abnormal Protein Band 1 REPORT; Albumin, (SPE) 2.9 g/dL (3.8-4.8); Alpha-1-Globulins 0.3 g/dL (0.2-0.3); Alpha-2-Globulins 0.5 g/dL (0.5-0.9); Beta 1 Globulin 0.3 g/dL (0.4-0.6); Gamma Globulins 1.6 g/dL (0.8-1.7); INTERPRETATION REPORT
--- NOTE | 2024-04-03 12:33 | EKG ---
Test Date: 2024-03-27 Test Time: 12:47:11 Coding Advisor: PH MEASUREMENT RESULTS: Intervals: Rate: 64 NM: QRSD: 120 QT: 466 QTc: 480 [place]: P: NM: QRS: -30 T: -55 INTERPRETIVE STATEMENTS: Demand pacemaker, interpretation is based on intrinsic rhythm Atrial fibrillation with premature ventricular or aberrantly conducted complexes Left axis deviation Incomplete left bundle branch block ST & T wave abnormality, consider anterolateral ischemia or digitalis effect Abnormal ECG Compared to ECG 01/24/2024 21:55:45 Ventricular premature complex(es) now present Left-axis deviation now present Left bundle-branch block now present ST (T wave) deviation now present Possible ischemia now present Electronically Signed On 04-03-24 12:18:43 [employer] by Fortunato Ackerman
== END 2024-03-31 11:30 | disposition home or self-care (01) | DRG 637 ==
LOC: ER 11:23 → ERHOLD 14:37 → 3RD-ICU 15:43 → 2ND 03-30 14:08
PROVIDERS: ADMIT Hospitalist; ATTEND Hospitalist
DX: E11.649 Type 2 diabetes mellitus with hypoglycemia without coma (principal); G93.41 Metabolic encephalopathy; J18.9 Pneumonia, unspecified organism; I13.0 Hypertensive heart and chronic kidney disease with heart failure and stage 1 through stage 4 chronic kidney disease, or unspecified chronic kidney disease; I50.32 Chronic diastolic (congestive) heart failure; F03.93 Unspecified dementia, unspecified severity, with mood disturbance; N17.9 Acute kidney failure, unspecified; N18.30 Chronic kidney disease, stage 3 unspecified; E11.22 Type 2 diabetes mellitus with diabetic chronic kidney disease; E11.51 Type 2 diabetes mellitus with diabetic peripheral angiopathy without gangrene; D63.1 Anemia in chronic kidney disease; E03.9 Hypothyroidism, unspecified; I48.0 Paroxysmal atrial fibrillation; I27.20 Pulmonary hypertension, unspecified; E83.42 Hypomagnesemia; E87.6 Hypokalemia; K21.9 Gastro-esophageal reflux disease without esophagitis; Z95.0 Presence of cardiac pacemaker; Z79.4 Long term (current) use of insulin; Z88.8 Allergy status to other drugs, medicaments and biological substances; Z79.01 Long term (current) use of anticoagulants; Z79.84 Long term (current) use of oral hypoglycemic drugs; Z79.02 Long term (current) use of antithrombotics/antiplatelets; Z86.73 Personal history of transient ischemic attack (TIA), and cerebral infarction without residual deficits; Z79.890 Hormone replacement therapy; Z89.412 Acquired absence of left great toe; Z96.651 Presence of right artificial knee joint; Z79.899 Other long term (current) drug therapy
CPT/HCPCS: 36415; 70450; 71045; 71250; 76770; 80048; 80053; 80069; 81001; 82570; 82607; 82668; 82728; 82947; 83036; 83540; 83605; 83735; 83880; 83970; 84100; 84156; 84165; 84439; 84443; 84484; 84550; 85025; 85044; 85610; 85730; 87040; 93005; 96361; 96374; 97110; 97116; 97161; 97530; 99285; J0696; J1644; J3475; J7050; J7799